=== PATIENT | male | born 1975 | race Caucasian/White ===

== ENCOUNTER 2023-10-15 23:10 | Observation (INO) | payer OTHER, SELFPAY ==
[2023-10-15 23:23] VITALS: BP 208/110; PULSE 88; RESP 16; TEMP 36.7; O2SAT 100
[2023-10-15 23:35] VITALS: PULSE 85; RESP 18
[2023-10-15 23:40] VITALS: PULSE 87; RESP 18; O2SAT 100
--- NOTE | 2023-10-15 23:41 | ECG_ITS ---
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
--- NOTE | 2023-10-15 23:41 | CT_ITS ---
The [address] [address] Patient Name: JOSÉ LUIS GORMAN MRN: [id number] date: 1975 Sex: M Assigned Patient Location: ER Current Patient Location: Accession/Order Number: [id number] Exam Date: 10/15/2023 23:52 Report Date: 10/16/2023 00:22 At the request of: KINZA HARRELL Procedure: CT stroke head/brain wo con EXAMINATION: CT Head without Contrast TECHNIQUE: Multiple axial noncontrast images of the brain were obtained and reformatted according to the standard protocol. QPP DOCUMENTATION: At least one of the following dose reduction techniques was utilized: Iterative reconstruction, and/or Automatic Exposure Control, and/or mA/kV adjustment based on body size. INDICATION: altered mental status, no focal deficit COMPARISON: MRI brain, 09/22/[address] head, 09/21/2023 FINDINGS: Intracranial hemorrhage: No CT evidence of intraparenchymal, intraventricular, or extraaxial hemorrhage. Infarct/Vascular: No evidence of acute transcortical infarctions. Intracranial Mass: No evidence of intracranial mass. CSF Spaces: The ventricles, sulci, and cisterns are normal. Calvarium and Scalp: Unremarkable. Mastoid Air Cells: Clear. Paranasal Sinuses: Lobulated partially calcified soft tissue attenuating structure within the right sphenoid sinus is unchanged since prior examination and may be due to chronic sinusitis. Orbits: Orbits are unremarkable. CT/CT stroke head/brain wo con IMPRESSION: No CT evidence of acute intracranial abnormalities. If symptoms persist, further assessment with MRI should be considered. Electronically authenticated by: LOUISE MOBLEY Date: 10/16/2023 00:22
--- NOTE | 2023-10-15 23:41 | XR_ITS ---
The [address] [address] Patient Name: JOSÉ LUIS GORMAN MRN: [id number] date: 1975 Sex: M Assigned Patient Location: ER Current Patient Location: ER Accession/Order Number: [id number] Exam Date: 10/15/2023 23:52 Report Date: 10/16/2023 00:28 At the request of: KINZA HARRELL Procedure: XR chest 1V EXAMINATION: XR chest 1V HISTORY: altered mental status COMPARISON: XR chest 09/21/2023 FINDINGS: LUNGS: Underexpanded lungs with mild haziness within lung bases. VASCULATURE: No increased pulmonary vasculature. PLEURA: No pneumothorax, effusion, or pleural thickening. CARDIAC: No cardiomegaly or cardiac silhouette abnormality. MEDIASTINUM: No visible mass or adenopathy. BONES: No fracture or visible bone lesion. OTHER: Negative. XR/XR chest 1V IMPRESSION: 1. Low lung volume examination with trace amount of bibasilar atelectasis, or possibly infiltrates. Findings are new compared to prior study. Electronically authenticated by: MARIA C VARGAS Date: 10/16/2023 00:28
[2023-10-15 23:42] LABS: Glucometer 208 mg/dL (74-106)
[2023-10-15 23:44] VITALS: BP 218/112
[2023-10-15 23:46] LABS: Basophils Absolute Auto 0.1 10^3/uL (0.0-0.1); Basophils Percent Auto 0.4 % (0.2-2.0); Eosinophils Absolute Auto 0.1 10^3/uL (0.0-0.7); Eosinophils Percent Auto 0.7 % (0.9-7.0); Hematocrit 38.7 % (42.0-54.0); Hemoglobin 13.1 g/dL (14.0-18.0); Immature Granulocytes Abs Auto 0.02 10^3/uL (0.00-0.03); Immature Granulocytes Pct Auto 0.2 % (0.0-0.5); Lymphocytes Absolute Auto 1.3 10^3/uL (1.2-3.8); Lymphocytes Percent Auto 11.8 % (20.5-60.0); Mean Corpuscular HGB Conc 33.9 g/dL (29.9-35.2); Mean Corpuscular Hemoglobin 28.6 pg (25.9-34.0); Mean Corpuscular Volume 84.5 fL (80.0-94.0); Mean Platelet Volume 10.2 fL (9.5-13.5); Monocytes Absolute Auto 0.4 10^3/uL (0.3-0.8); Monocytes Percent Auto 3.8 % (1.7-12.0); Neutrophils Absolute Auto 9.3 10^3/uL (1.4-6.5); Neutrophils Percent Auto 83.1 % (43.0-75.0); Platelet Count 271 10^3/uL (150-450); Red Blood Count 4.58 10^6/uL (4.70-6.10); White Blood Count 11.2 10^3/uL (4.0-11.0)
[2023-10-15 23:49] VITALS: PULSE 82; RESP 16; O2SAT 97
[2023-10-16] VITALS (30 sets, daily range): BP systolic 141–221; BP diastolic 71–122; PULSE 85–99; RESP 12–18; TEMP 36.8; O2SAT 96–98; BMI 27.0
[2023-10-16 00:06] LABS: Alanine Aminotransferase 33 U/L (16-63); Anion Gap 13.5; Aspartate Amino Transferase 18 U/L (15-37); BUN Creatinine Ratio 22.3; Bilirubin Direct 0.1 mg/dL (0.0-0.2); Bilirubin Total 0.3 mg/dL (0.2-1.0); Calcium 9.4 mg/dL (8.5-10.1); Carbon Dioxide 23.4 mmol/L (21.0-32.0); Chloride 102 mmol/L (98-107); Estimated GFR (African America 49 (>=60); Estimated GFR (Non-African Ame 41 (>=60); Glucose 210 mg/dL (74-106); Potassium 3.9 mmol/L (3.5-5.1); Sodium 135 mmol/L (136-145); Troponin I High Sensitivity 6.6 pg/mL (4.0-76.1)
[2023-10-16 00:07] LABS: Albumin Globulin Ratio 0.7; Albumin Level 3.1 g/dL (3.4-5.0); Alkaline Phosphatase 111 U/L (46-116); Ethanol <3 mg/dL; Globulin 4.3 g/dL; Total Protein 7.4 g/dL (6.4-8.2)
[2023-10-16] MEDS: LABETALOL HCL 20 MG/4 ML SYRINGE 10 MG IVP ×2 (00:35→01:24)
[2023-10-16] MEDS: ONDANSETRON PF 4 MG/2 ML VIAL IV (01:00)
--- NOTE | 2023-10-16 01:15 | ED_ITS ---
HPI - Altered Mental Status General Chief Complaint: Altered Mental Status Stated Complaint: HEADACHE, NASEAU Time Seen by Provider: 10/15/23 23:30 Source: patient Mode of arrival: walk-in Limitations: no limitations History of Present Illness HPI narrative: 47-year-old male presents for not acting himself. It started about 3:00 this afternoon, and nine hours before coming into the emergency department. His famil y was with him since 1 PM. There was no injury. His blood sugar was not elevated. He doesn't complain of any pain except a mild headache. Been taking his medications. Symptom or circumstances happened about a month ago when he was seen at another hospital. At that time he had been intubated and after extubation left without completing his treatment, AMA. Family states that this episode is not as bad as that one and they're not really sure what caused it. I was able to obtain those medical records and he had a negative MRI and the rest of his imaging workup was negative. No localized weakness or trauma. Related Data Home Medications Medication Instructions Recorded Confirmed blood-glucose meter,continuous 10/15/23 10/15/23 (Dexcom G6 Concert Or Lecture Hall Manager) blood-glucose sensor (Dexcom G6 10/15/23 10/15/23 Sensor device) blood-glucose transmitter (Dexcom 10/15/23 10/15/23 G6 Transmitter device) insulin glargine U-300 conc 300 unit subcut 10/15/23 unit/mL (3 mL) subcutaneous pen (Toujeo Max U-300 SoloStar) lisinopril 10 mg tablet mg 10/15/23 lisinopril 20 mg tablet mg 10/15/23 metoprolol tartrate 50 mg tablet mg 10/15/23 pen needle, diabetic 31 gauge x 10/15/23 10/15/23 5/16 (Easy Comfort Pen Talala) simvastatin 20 mg tablet 20 mg PO DAILY 10/15/23 10/15/23 tizanidine 4 mg tablet mg 10/15/23 Allergies Allergy/AdvReac Type Severity Reaction Status Date / Time No Known Drug Allergies Allergy Verified 10/15/23 23:39 Review of Systems ROS Narrative A ten point review of systems is negative except as noted above. PFSH PFSH Social History Smoking status: Never smoker Exam Narrative Exam Narrative: Nurses note and vital signs reviewed and patient is not hypoxic. General: The patient appears well and in no apparent distress. Patient is resting comfortably on cart. Skin: Warm, dry, no pallor noted. There is no rash noted. Head: Normocephalic, atraumatic, no nuchal rigidity Eye: Normal conjunctiva, no drainage Ears, Nose, Mouth, and Throat: oral mucosa is moist. Nares patent. Cardiovascular: Regular Rate and Rhythm Respiratory: Patient is in no distress, no accessory muscle use, lungs are clear to auscultation, no wheezing, rales or rhonchi Back: non-tender GI: soft and nontender Musculoskeletal: The patient has no evidence of calf tenderness, no pitting edema, symmetrical pulses noted bilaterally Neurological: A&O x4, normal speech; upper and lower extremity strength intact Psychiatric: Cooperative Constitutional Vital Signs, click to edit/add: Last Vital Signs Temp 98.0 F 10/15/23 23:23 Pulse 82 10/15/23 23:49 Resp 16 10/15/23 23:49 BP 166/93 H 10/16/23 03:10 Pulse Ox 97 10/15/23 23:49 O2 Del Method Room Air 10/15/23 23:23 Course Vital Signs Vital signs: Vital Signs Temperature 98.0 F 10/15/23 23:23 Pulse Rate 88 10/15/23 23:23 Respiratory Rate 16 10/15/23 23:23 Blood Pressure 208/110 H 10/15/23 23:23 Pulse Oximetry 100 10/15/23 23:23 Oxygen Delivery Method Room Air 10/15/23 23:23 Temperature 98.0 F 10/15/23 23:23 Pulse Rate 82 10/15/23 23:49 Respiratory Rate 16 10/15/23 23:49 Blood Pressure 166/93 H 10/16/23 03:10 Pulse Oximetry 97 10/15/23 23:49 Oxygen Delivery Method Room Air 10/15/23 23:23 MDM - Altered Mental Status MDM Narrative Medical decision making narrative: the patient presented with elevated blood pressure was given several doses of IV labetalol. His blood pressure has come down appropriately and he is now back to himself according to the family. CAT scan of brain is negative and blood work nonspecific. He is being admitted. Differential Diagnosis Differential diagnosis: Likely altered mental status, hypoglycemia, hyponatremia, subarachnoid hemorrhage and OTHER (uncontrolled hypertension) Lab Data Attestation: I reviewed the patient's lab results. Labs: Lab Results 10/15/23 10/15/23 Range/Units 23:32 23:40 WBC 11.2 H (4.0-11.0) 10^3/uL RBC 4.58 L (4.70-6.10) 10^6/uL Hgb 13.1 L (14.0-18.0) g/dL Hct 38.7 L (42.0-54.0) % MCV 84.5 (80.0-94.0) fL MCH 28.6 (25.9-34.0) pg MCHC 33.9 (29.9-35.2) g/dL RDW 13.0 (11.0-15.0) % Plt Count 271 (150-450) 10^3/uL MPV 10.2 (9.5-13.5) fL Neut % (Auto) 83.1 H (43.0-75.0) % Lymph % (Auto) 11.8 L (20.5-60.0) % [place] % (Auto) 3.8 (1.7-12.0) % Eos % (Auto) 0.7 L (0.9-7.0) % Baso % (Auto) 0.4 (0.2-2.0) % Neut # (Auto) 9.3 H (1.4-6.5) 10^3/uL Lymph # (Auto) 1.3 (1.2-3.8) 10^3/uL [place] # (Auto) 0.4 (0.3-0.8) 10^3/uL Eos # (Auto) 0.1 (0.0-0.7) 10^3/uL Baso # (Auto) 0.1 (0.0-0.1) 10^3/uL Abs Immat Gran (auto) 0.02 (0.00-0.03) 10^3/uL Imm/Tot Granulo (auto) 0.2 (0.0-0.5) % Sodium 135 L (136-145) mmol/L Potassium 3.9 (3.5-5.1) mmol/L Chloride 102 (98-107) mmol/L Carbon Dioxide 23.4 (21.0-32.0) mmol/L Anion Gap 13.5 BUN 40.0 H (7.0-18.0) mg/dL Creatinine 1.79 H (0.70-1.30) mg/dL Est GFR ( Amer) 49 L (>=60) Est GFR (Non-Af Amer) 41 L (>=60) BUN/Creatinine Ratio 22.3 Glucose 210 H (74-106) mg/dL Calcium 9.4 (8.5-10.1) mg/dL Total Bilirubin 0.3 (0.2-1.0) mg/dL Direct Bilirubin 0.1 (0.0-0.2) mg/dL AST 18 (15-37) U/L ALT 33 (16-63) U/L Alkaline Phosphatase 111 (46-116) U/L Troponin I High Sens 6.6 (4.0-76.1) pg/mL Total Protein 7.4 (6.4-8.2) g/dL Albumin 3.1 L (3.4-5.0) g/dL Globulin 4.3 g/dL Albumin/Globulin Ratio 0.7 Ethanol Quant <3 mg/dL POC Glucose 208 H (74-106) mg/dL Imaging Data CT scan - head: Radiologist's impression: Procedure: CT stroke head/brain wo con EXAMINATION: CT Head without Contrast TECHNIQUE: Multiple axial noncontrast images of the brain were obtained and reformatted according to the standard protocol. Q DOCUMENTATION: At least one of the following dose reduction techniques was utilized: Iterative reconstruction, and/or Automatic Exposure Control, and/or mA/kV adjustment based on body size. INDICATION: altered mental status, no focal deficit COMPARISON: MRI brain, 09/22/[address] head, 09/21/2023 FINDINGS: Intracranial hemorrhage: No CT evidence of intraparenchymal, intraventricular, or extraaxial hemorrhage. Infarct/Vascular: No evidence of acute transcortical infarctions. Intracranial Mass: No evidence of intracranial mass. CSF Spaces: The ventricles, sulci, and cisterns are normal. Calvarium and Scalp: Unremarkable. Mastoid Air Cells: Clear. Paranasal Sinuses: Lobulated partially calcified soft tissue attenuating structure within the right sphenoid sinus is unchanged since prior examination and may be due to chronic sinusitis. Orbits: Orbits are unremarkable. IMPRESSION: No CT evidence of acute intracranial abnormalities. If symptoms persist, further assessment with MRI should be considered. Electronically authenticated by: LOUISE MOBLEY Date: 10/16/2023 00:22 Procedure: XR chest 1V EXAMINATION: XR chest 1V HISTORY: altered mental status COMPARISON: XR chest 09/21/2023 FINDINGS: LUNGS: Underexpanded lungs with mild haziness within lung bases. VASCULATURE: No increased pulmonary vasculature. PLEURA: No pneumothorax, effusion, or pleural thickening. CARDIAC: No cardiomegaly or cardiac silhouette abnormality. MEDIASTINUM: No visible mass or adenopathy. BONES: No fracture or visible bone lesion. OTHER: Negative. IMPRESSION: 1. Low lung volume examination with trace amount of bibasilar atelectasis, or possibly infiltrates. Findings are new compared to prior study. Electronically authenticated by: MARIA C VARGAS Date: 10/16/2023 00:28 ECG Data Attestation: I personally reviewed and interpreted this ECG as follows: (EKG on my interpretation shows sinus rhythm and no acute changes and a rate of 84.) Critical Care Time Critical Care Time Critical Care Time: Yes Total Critical Care Time: 45 Attestation: Due to the high probability of sudden and clinically significant deterioration in the patient's condition he/she required the highest level of my preparedness to intervene urgently I provided critical care time including documentation time, medication orders and management, reevaluation, vital sign assessment, ordering and reviewing of lab tests, ordering and reviewing of x-ray studies, and admission orders. Aggregate critical care time is 45 minutes including only time during which I was engaged in work directly related to his/her care and did not include time spent treating other patients simultaneously. Discharge Plan Discharge Chief Complaint: Altered Mental Status Clinical Impression: Uncontrolled hypertension Patient Disposition: Admitted As Inpatient Time of Disposition Decision: 03:22 Prescriptions / Home Meds: No Action tizanidine 4 mg tablet lisinopril 20 mg tablet lisinopril 10 mg tablet metoprolol tartrate 50 mg tablet (DME) pen needle, diabetic [Easy Comfort Pen Talala] 31 gauge x 5/16 needle MISCELLANEOUS (DME) Dexcom G6 Sensor Device MISCELLANEOUS (DME) Dexcom G6 Concert Or Lecture Hall Manager Misc MISCELLANEOUS (DME) Dexcom G6 Transmitter Device MISCELLANEOUS Toujeo Max U-300 SoloStar 300 unit/mL (3 mL) insulin pen SUBCUT simvastatin 20 mg tablet 20 mg PO DAILY Referrals: Akhil Navas DPM [Primary Care Provider] - 1 week
[2023-10-16] MEDS: LABETALOL HCL 20 MG/4 ML SYRINGE IVP (02:13)
--- NOTE | 2023-10-16 05:21 | P.PN_ITS ---
Progress Note: Subjective Subjective Interval history: CC: confusion HPI: This is a 47 years old male with past medical history significant for hypertension, diabetes who presents with above complaints. Patient is noncompliant with his medical regimen. On presentation to emergency room patient found to have significant elevated blood pressure. No acute neurological deficits. Imaging studies of the brain been negative. Patient received IV labetalol with a good response. Blood pressure is much better and patient's neurological status and mentation markedly improved. Patient reports that he is taking his medication on a as needed basis. From medical record he is supposed to be on metoprolol and lisinopril. Exam Narrative Exam Narrative: Physical Exam: Not in distress, pleasant, lucid, cooperative, Head - atraumatic, eyes - pupils equal, round, reactive to light, extra ocular movement intact, MMM Neck - supple, thyroid not enlarged, LN not palpated Lungs - clear to auscultation, no dullness on percussion CVS - heart sounds S1, S2, no additional murmurs gallop, regular rate and rhythm Gastrointestinal?abdomen is soft, non-tender, non-distended, no organomegaly, positive bowel sounds Extremities no clubbing, cyanosis or edema Neurological?cranial nerve II?XII grossly intact, no meningeal signs, no cerebellar signs, no sensory deficit Musculoskeletal - joints, no effusions, ROM preserved Dermatological - the skin dry, warm, no rashes Psychiatric?patient is AAO X3, patient has normal affect Constitutional Vital Signs, click to edit/add: Last Vital Signs Temp 98.3 F 10/16/23 03:51 Pulse 91 H 10/16/23 04:57 Resp 18 10/16/23 03:51 BP 163/96 H 10/16/23 03:51 Pulse Ox 96 10/16/23 04:57 O2 Del Method Room Air 10/16/23 03:51 Progress Note: Objective Labs Labs: Short CBC 10/15/23 Range/Units 23:40 WBC 11.2 H (4.0-11.0) 10^3/uL Hgb 13.1 L (14.0-18.0) g/dL Hct 38.7 L (42.0-54.0) % Plt Count 271 (150-450) 10^3/uL BMP 10/15/23 23:40 Sodium 135 L Potassium 3.9 Chloride 102 Carbon Dioxide 23.4 BUN 40.0 H Creatinine 1.79 H Glucose 210 H Calcium 9.4 Liver Function 10/15/23 Range/Units 23:40 Total Bilirubin 0.3 (0.2-1.0) mg/dL Direct Bilirubin 0.1 (0.0-0.2) mg/dL AST 18 (15-37) U/L ALT 33 (16-63) U/L Alkaline Phosphatase 111 (46-116) U/L Albumin 3.1 L (3.4-5.0) g/dL Progress Note: A&P Assessment and Plan (1) Uncontrolled hypertension: Assessment and Plan: Hypertensive urgency?seems to be resolving with labetalol IV. I restarted patient's home medications. Advised patient to take his antihypertensive regimen on daily basis. I ordered echocardiogram. Adjust medications as needed (2) Diabetes: Assessment and Plan: I am going to start patient on ADA diet, I am going to order Accu-Cheks, coverage with insulin sliding scale. Defer rest of the management to outpatient. Check hemoglobin A1c lipid profile Plan As the provider for the telehealth service, I attest that I introduced myself to the patient, provided my credentials, disclosed by location and determined that based on a review of the patient's chart and discussion with members of the patient's treatment team, telemedicine via real-time, 2 way, and interactive audio and video platform is an appropriate and effective means of providing the service. ?The patient and I mutually agree this visit is appropriate for telemedicine. ?The virtual encounter was taken place from? [place], [place]. ?The encounter took approximately 35 minutes. ?The nurse was present during the entire time and I was able to move the stethoscope in appropriate directions. ?T he patient was evaluated at the Hospital ? Portions of this note may be dictated using [employer] voice recognition software. Variances in spelling and vocabulary are possible and unintentional. Not all e rrors may be caught and/or corrected. Please notify the author if any discrepancies are noted and/or if the meaning of any statement is unclear.? ? Patient verbally consented for treatment via video visit with patient currently located at the [facility] and provider located in [place]. Telemedicine Attestation Telemedicine Attestation I conducted this encounter from [[place]] via secure live, [id number] video conference with the patient, located at [facility] with [hypertensive urgency]. Prior to the interview, the risks and benefits of telemedicine were discussed with the patient and verbal consent was obtained.
[2023-10-16 06:19] LABS: Basophils Percent Auto 0.3 % (0.2-2.0); Eosinophils Percent Auto 0.1 % (0.9-7.0); Hematocrit 36.4 % (42.0-54.0); Hemoglobin 12.3 g/dL (14.0-18.0); Immature Granulocytes Abs Auto 0.04 10^3/uL (0.00-0.03); Immature Granulocytes Pct Auto 0.3 % (0.0-0.5); Lymphocytes Absolute Auto 1.1 10^3/uL (1.2-3.8); Lymphocytes Percent Auto 8.4 % (20.5-60.0); Mean Corpuscular HGB Conc 33.8 g/dL (29.9-35.2); Mean Corpuscular Hemoglobin 28.4 pg (25.9-34.0); Mean Corpuscular Volume 84.1 fL (80.0-94.0); Mean Platelet Volume 10.7 fL (9.5-13.5); Monocytes Absolute Auto 0.3 10^3/uL (0.3-0.8); Monocytes Percent Auto 2.6 % (1.7-12.0); Neutrophils Absolute Auto 11.1 10^3/uL (1.4-6.5); Neutrophils Percent Auto 88.3 % (43.0-75.0); Platelet Count 252 10^3/uL (150-450); Red Blood Count 4.33 10^6/uL (4.70-6.10); Red Cell Distribution Width 12.9 % (11.0-15.0); White Blood Count 12.6 10^3/uL (4.0-11.0)
[2023-10-16 06:47] LABS: Anion Gap 12.6; BUN Creatinine Ratio 23.8; Calcium 8.9 mg/dL (8.5-10.1); Carbon Dioxide 24.5 mmol/L (21.0-32.0); Chloride 102 mmol/L (98-107); Estimated GFR (African America 53 (>=60); Estimated GFR (Non-African Ame 44 (>=60); Glucose 292 mg/dL (74-106); Potassium 5.1 mmol/L (3.5-5.1); Sodium 134 mmol/L (136-145)
[2023-10-16 06:54] LABS: Chol HDL Ratio 4.2; Cholesterol 253 mg/dL (<=200); HDL Cholesterol 60 mg/dL (40-60); Magnesium 1.8 mg/dL (1.8-2.4); Phosphorus 3.7 mg/dL (2.6-4.7); Triglycerides 82 mg/dL (<=150); VLDL CHOLESTEROL 16.4 mg/dL
[2023-10-16] MEDS: INSULIN ASPART 300 UNIT/3 ML PEN SUBQ ×2 (08:18→11:21)
[2023-10-16] MEDS: LISINOPRIL 20 MG TABLET PO (08:18)
[2023-10-16] MEDS: METOPROLOL TARTRATE 50 MG TABLET PO ×2 (08:18→11:40)
[2023-10-16 11:12] LABS: Glucometer 286 mg/dL (74-106)
--- NOTE | 2023-10-16 11:23 | P.HP_ITS ---
H&P: HPI History of Present Illness Chief complaint: HEADACHE, NASEAU Narrative: Pt presented to the ER wtih ams, and hypertension. He is back to baseline now. Says he felt BP was low at home so drank a bunch of salted water. Then had the symptoms. Recent DC from [facility] for similar that he needed to be intubated for. Back to baseline now. Will see how the day progresses Review of Systems ROS Status of ROS 10 or more systems reviewed and unremark able except as noted in history and below [facility] Medical History (Updated 10/16/23 @ 08:57 by Arnel Palacios MD) Dyslipidemia ?E78.5 - Hyperlipidemia, unspecified (ICD-10) Benign essential hypertension ?I10 - Essential (primary) hypertension (ICD-10) Uncontrolled hypertension ?I10 - Essential (primary) hypertension (ICD-10) Infection of muscle of back ?M60.08 - Infective myositis, other site (ICD-10) Diabetes ?E11.9 - Type 2 diabetes mellitus without complications (ICD-10) Social History (Updated 10/16/23 @ 04:17 by Karen Zaldivar) Within the past year, how often did you have a drink containing alcohol: monthly or less Within the past year, how many standard drinks containing alcohol did you have on a typical day: 1 or 2 Within the past year, how often did you have six or more drinks on one occasion: never Total score: 0 Score interpretation: A score less than 4 is consistent with normal alcohol consumption. Smoking status: Never smoker Do you use any of these nicotine containing products: smokeless tobacco Non-prescribed substance use: denies use Previous occupational history: [employer] Highest level of school completed/degree received: high school graduate Little interest or pleasure in doing things: not at all Feeling down, depressed, or hopeless: not at all Feel stressed/tense/nervous/anxious/difficulty sleeping: only a little Due to disability, difficulty making decisions: No Meds Home Medications and Allergies Home Medications Medication Instructions Recorded Confirmed Type blood-glucose meter,continuous 10/15/23 10/16/23 History (Dexcom G6 Medical Territory Manager) blood-glucose sensor (Dexcom G6 10/15/23 10/15/23 History Sensor device) blood-glucose transmitter (Dexcom 10/15/23 10/15/23 History G6 Transmitter device) insulin glargine U-300 conc 300 unit subcut 10/15/23 History unit/mL (3 mL) subcutaneous pen (Toujeo Max U-300 SoloStar) lisinopril 20 mg tablet 20 mg PO DAILY 10/15/23 10/16/23 History metoprolol tartrate 50 mg tablet 50 mg PO Q12H 10/15/23 10/16/23 History pen needle, diabetic 31 gauge x 10/15/23 10/15/23 History 5/16 (Easy Comfort Pen Ethel) levofloxacin 750 mg tablet 750 mg PO DAILY 10 days #10 tabs 10/16/23 Rx Allergies Allergy/AdvReac Type Severity Reaction Status Date / Time No Known Drug Allergies Allergy Verified 10/15/23 23:39 Exam Constitutional Vital Signs, click to edit/add: Last Vital Signs Temp 98.3 F 10/16/23 03:51 Pulse 91 H 10/16/23 10:00 Resp 16 10/16/23 08:00 BP 141/71 10/16/23 08:18 Pulse Ox 96 10/16/23 04:57 O2 Del Method Room Air 10/16/23 03:51 Documenting provider has reviewed patient's vital signs: yes Common normals: no apparent distress Chest Common normals: inspection of chest normal and palpation of chest normal Respiratory Common normals: normal respiratory effort, no retractions and no use of accessory muscles Cardio Common normals: regular rate and regular rhythm GI Common normals: Normal to inspection, nondistended, normoactive bowel sounds present Results Labs Labs: Short CBC 10/15/23 10/16/23 Range/Units 23:40 06:12 WBC 11.2 H 12.6 H (4.0-11.0) 10^3/uL Hgb 13.1 L 12.3 L (14.0-18.0) g/dL Hct 38.7 L 36.4 L (42.0-54.0) % Plt Count 271 252 (150-450) 10^3/uL BMP 10/15/23 10/16/23 23:40 06:12 Sodium 135 L 134 L Potassium 3.9 5.1 Chloride 102 102 Carbon Dioxide 23.4 24.5 BUN 40.0 H 40.0 H Creatinine 1.79 H 1.68 H Glucose 210 H 292 H Calcium 9.4 8.9 Liver Function 10/15/23 Range/Units 23:40 Total Bilirubin 0.3 (0.2-1.0) mg/dL Direct Bilirubin 0.1 (0.0-0.2) mg/dL AST 18 (15-37) U/L ALT 33 (16-63) U/L Alkaline Phosphatase 111 (46-116) U/L Albumin 3.1 L (3.4-5.0) g/dL Assessment and Plan Assessment and Plan (1) Uncontrolled hypertension: (2) Diabetes: Plan AMS due to hypertensive urgency - Back to baseline now. Looks like not taking meds correctly. reviewed meds with pt, he feels comfortable going home. The plan is to adjust bp meds, ambulate, eat. If doing well after lunch - ok for D/C to home. See me later this week. Medications,. see list Uncontrolled DM - discussed diet which he is not following. Cough - says since was on the vent - occ productive >10 days - will send in Ab Doing much better - maintain current treatment, stay in obs as 90% certain discharge later today
--- OUTSIDE RECORDS SUMMARY | 2023-10-18 08:45 | XMS_ITS | CCD ---
Author Name Unknown Address [address] [place] [address] Organization [facility] Care Team Providers Care Manager Utilization Name Role Phone Paulina Winters MD Primary Care Provider [phone] PAULINA WINTERS Primary Care Unavailable SOHAIL GREER Consulting Unavailable STEPHANIE KWONG Admitting Unavailable STEPHANIE KWONG Attending Unavailable JEMAL MONTES DE OCA Consulting Unavailable CHENG LIRA Attending Unavailable PAULINA WINTERS Primary Care Unavailable PAULINA WINTERS Primary Care Unavailable LULÚ BOND Attending Unavailable HOY ., DR GALLARDO Attending Unavailable HOY ., DR GALLARDO Admitting Unavailable HOY ., DR GALLARDO Primary Care Unavailable HOY ., DR GALLARDO Primary Care Unavailable HIGHLANDER, PETER D Admitting Unavailable HIGHLANDER, PETER D Attending Unavailable HIGHLANDER, PETER D Admitting Unavailable HOY ., DR GALLARDO Primary Care Unavailable HIGHLANDER, PETER D Attending Unavailable HIGHLANDER, PETER D Admitting Unavailable HOY ., DR GALLARDO Primary Care Unavailable HIGHLANDER, PETER D Attending Unavailable HOY ., DR GALLARDO Primary Care Unavailable HIGHLANDER, PETER D Attending Unavailable HIGHLANDER, PETER D Admitting Unavailable HOY ., DR GALLARDO Primary Care Unavailable HIGHLANDER, PETER D Admitting Unavailable HIGHLANDER, PETER D Attending Unavailable HOY ., DR GALLADRO Primary Care Unavailable HIGHLANDER, PETER D Admitting Unavailable HIGHLANDER, PETER D Attending Unavailable HOY ., DR GALLARDO Attending Unavailable HOY ., DR GALLARDO Primary Care Unavailable HOY ., DR GALLARDO Consulting Unavailable HOY ., DR GALLARDO Admitting Unavailable GRECHNY ., DOMENICA HERNÁNDEZ Consulting UnavailAnni Avery Consulting Unavailable MELISSA ., EVI Consulting Unavailable JACOB VARGAS Consulting Unavailable KATELIN IGNACIO Consulting Unavailable SINGH ., DR GALLARDO Primary Care Unavailable PAY ., DR MANRIQUEZ Consulting Unavailable PAY ., DR MANRIQUEZ Attending Unavailable PAY ., DR MANRIQUEZ Admitting Unavailable HOY ., DR GALLARDO Consulting Unavailable HOY ., DR GALLARDO Attending Unavailable HOY ., DR GALLARDO Admitting Unavailable HOY ., DR GALLARDO Primary Care Unavailable WALDORF, DR RAMIRO Cramer Consulting Unavailable HOY ., DR GALLARDO Attending Unavailable HOY ., DR GALLARDO Primary Care Unavailable HOY ., DR GALLARDO Consulting Unavailable HOY ., DR GALLARDO Admitting Unavailable HOY ., DR GALLARDO Attending Unavailable HOY ., DR GALLARDO Primary Care Unavailable HOY ., DR GALLARDO Admitting Unavailable HOY ., DR GALLARDO Consulting Unavailable JACQUELINE PACHECO Procedure Practitioner Unava ilable SHAIKH Kelvin DOMÍNGUEZ Attending Unavailable SINGH ., DR GALLARDO Primary Care Unavailable FAMICHAEL SANTANAIKH H Admitting Unavailable RADHA, DR FITZGERALD Consulting Unavailable TARA, JACQUELINE Orantes Consulting Unavailable MICHAEL DOMÍNGUEZIKH H Consulting Unavailable DIANE, DAMIAN Consulting Unavailable JAILENE ., EVELINE FITZGERALD Consulting Unavailable SISTER, JUSTIN Consulting Unavailable GEMBUS, OLE Consulting Unavailable HOY ., DR GALLARDO Attending Unavailable HOY ., DR GALLARDO Primary Care Unavailable HOY ., DR GALLARDO Admitting Unavailable Jarod Simons Attending UnavailPaulina Hemphill MD Primary Care UnavailJarod Guo Attending UnavailPaulina Hemphill MD Primary Care UnavailJarod Guo Attending Paulina Guzmán MD Primary Care UnavailPaulina Erickson MD Primary Care Provider [phone] KARL CANDELARIO Admitting Unavailabl e MORIKARL PAL Attending Unavailabl e CONSULT, NEUROLOGY Consulting Unavailable PAULINA WINTERS Primary Care Unavailable PAULINA WINTERS Referring Unavailable PAULINA WINTERS Primary Care Unavailable Allergies Allergy Classification Reported Allergen(s) Allergy Type Date of Onset Reaction(s) Facility (1 source) No Known Medication Allergies; Translations: [No Known Medication Allergies] Propensity to adverse reactions to drug (disorder) [facility] Repository Medications Current Medications Medication Drug Class(es) Dates Sig (Normalized) Sig (Original) hydroCHLOROthiazide 25 mg oral tablet (2 sources) Thiazide Diuretic Start: 2 End: 2 take 1 tablet by mouth once daily in the morning hydroCHLOROthiazide (HYDRODIURIL) 25 MG tablet Take 1 tablet by mouth every morning for 14 days 14 tablet 0 04/20/2022 05/04/2022 Active 3 ml insulin aspart, human 100 unt/ml pen injector (1 source) Insulin Analog inject 1 [IU] by subcutaneous injection at bedtime NovoLOG FlexPen 100 UNIT/ML Solution Pen-injector injection Inject 1 Units under the skin before meals & at bedtime. 0 Active 3 ml insulin detemir 100 unt/ml pen injector (2 sources) Insulin Analog Start: 2 insulin detemir (LEVEMIR FLEXTOUCH) 100 UNIT/ML injection pen Inject 50 Units into the skin daily 5 pen 3 11/02/2021 Active insulin glargine 100 unt/ml injectable solution (1 source) Insulin Analog inject 1 [IU] by subcutaneous injection at bedtime Insulin glargine (Lantus) 100 UNIT/ML vial Inject 1 Units under the skin at bedtime. 0 Active 3 ml insulin lispro 100 unt/ml pen injector (2 sources) Insulin Analog Start: 2 insulin lispro, 1 Unit Dial, (HUMALOG KWIKPEN) 100 UNIT/ML SOPN Inject 10 Units into the skin 3 times daily (before meals) If blood sugar is greater than 200 take 15 units 3 pen 3 11/02/2021 Active lisinopril 10 mg oral tablet (2 sources) Angiotensin Converting Enzyme Inhibitor Start: 3 take 1 tablet by mouth every twelve hours Lisinopril 10 MG tablet Take 1 tablet by mouth every 12 hours. 30 tablet 1 09/24/2023 Active Start: 09-23-2023 End: 09-24-2023 Lisinopril (PRINIVIL) tablet 10 mg sildenafil (1 source) Phosphodiesterase 5 Inhibitor Sildenafil Citrate (VIAGRA PO) Take 1 % by mouth As directed as needed for Other. 0 Active simvastatin 20 mg oral tablet (1 source) HMG-CoA Reductase Inhibitor take 1 tablet by mouth once daily in the evening simvastatin 20 MG tablet Take 1 tablet by mouth every evening at 6 PM. 0 Active tiZANidine 2 mg oral tablet (1 source) Central alpha-2 Adrenergic Agonist take 2 tablets by mouth three times daily Tizanidine 2 MG tablet Take 2 tablets by mouth 3 times daily. 0 Active Completed/Discontinued Medications Medication Drug Class(es) Dates Sig (Normalized) Sig (Original) acetaminophen 325 mg oral tablet (4 sources) Start: 09-23-2023 End: 09-24-2023 take 1 tablet by mouth every four hours as needed Acetaminophen (TYLENOL) tablet 650 mg Start: 04-19-2022 End: 04-19-2022 acetaminophen (TYLENOL) tabl et 650 mg Start: 04-04-2022 End: 04-04-2022 acetaminophen (TYLENOL) tabl et 1,000 mg take 1 tablet by divine th every six hours as needed acetaminophen 500 MG tablet Take 1 tablet by mouth every 6 hours as needed for Mild Pain. 0 Active Acyclovir (ZOVIRAX) 800 mg in Sodium chloride 0.9%, with overfill 291 mL (total volume) IVPB (1 source) Start: 09-22-2023 End: 09-23-2023 Acyclovir (ZOVIRAX) 800 mg in Sodium chloride 0.9%, with overfill 291 mL (total volume) IVPB 20 ml albumin human, fdc 250 mg/ml injection (1 source) Human Serum Albumin Start: 09-22-2023 End: 09-22-2023 albumin human 25 % injection 25 g albuterol 0.833 mg/ml / ipratropium bromide 0.167 mg/ml inhalation solution (1 source) Anticholinergic , beta2-Adrenergi c Agonist Start: 09-23-2023 End: 09-24-2023 take 3 mL by inhalation every four hours as needed Ipratropium-albuter ol (DUONEB) 0.5-2.5 (3) MG/3ML nebulizer solution 3 mL atorvastatin 10 mg oral tablet (1 source) HMG-CoA Reductase Inhibitor Start: 09-22-2023 End: 09-24-2023 take 10 mg by mouth once daily at bedtime 10 mg, Oral, DAILY AT BEDTIME, First dose on Roz 09/22/23 at 2100, Until Discontinued cefTRIAXone (ROCEPHIN) 1 g in sodium chloride 0.9% (MB PLUS) 50 mL (total volume) IVPB (1 source) Start: 09-22-2023 End: 09-23-2023 take 1 g intravenously every twenty-four hours cefTRIAXone (ROCEPHIN) 1 g in sodium chloride 0.9% (MB PLUS) 50 mL (total volume) IVPB 100 ml dexmedetomidine 0.004 mg/ml injection (2 sources) Central alpha-2 Adrenergic Agonist Start: 09-22-2023 End: 09-23-2023 dexmedeTOMIDine in sodium chloride 0.9% (PRECEDEX) 400 mcg/100 mL premix IV infusion Start: 09-22-2023 End: 09-22-2023 dexmedeTOMIDine in sodium ch loride 0.9% (PRECEDEX) 400 mcg/100 mL premix IV infusion 1 ml diphenhydrAMINE hydrochloride 50 mg/ml cartridge (1 source) Histamine-1 Receptor Antagonist Start: 04-04-2022 End: 04-04-2022 diphenhydrAMINE (BENADRYL) injection 25 mg 0.4 ml enoxaparin sodium 100 mg/ml prefilled syringe (1 source) Low Molecular Weight Heparin Start: 09-22-2023 End: 09-24-2023 Enoxaparin Sodium (LOVENOX) injection 40 mg 20 ml etomidate 2 mg/ml injection (1 source) General Anesthetic Start: 09-21-2023 End: 09-21-2023 Etomidate (AMIDATE) injection 250 ml glucose 50 mg/ml / sodium chloride 9 mg/ml injection (1 source) Start: 09-22-2023 End: 09-24-2023 Dextrose 5% and sodium chloride 0.9% IV solution 1 ml haloperidol 5 mg/ml prefilled syringe (1 source) Typical Antipsychotic Start: 09-22-2023 End: 09-22-2023 Haloperidol lactate (HALDOL) injection 5 mg 1 ml hydrALAZINE hydrochloride 20 mg/ml injection (1 source) Arteriolar Vasodilator Start: 09-23-2023 End: 09-24-2023 take 20 mg intravenously every four hours as needed hydrALAZINE (APRESOLINE) injection 20 mg Insulin regular (HUMULIN R;NOVOLIN R) injection (1 source) Start: 09-22-2023 End: 09-24-2023 Insulin regular (HUMULIN R;NOVOLIN R) injection labetalol hydrochloride 5 mg/ml injectable solution (1 source) beta-Adrenergic Arlene Start: 09-23-2023 End: 09-24-2023 take 20 mg intravenously every six hours as needed Labetalol (NORMODYNE) injection 20 mg levETIRAcetam 500 mg oral tablet (1 source) Start: 09-23-2023 End: 09-24-2023 levETIRAcetam (KEPPRA) tablet 500 mg 2 ml midazolam 1 mg/ml injection (2 sources) Benzodiazepine Start: 09-21-2023 End: 09-21-2023 Midazolam HCl (PF) (VERSED) injection Start: 09-21-2023 End: 09-21-2023 midazolam (VERSED) injection 4 mg 200 ml niCARdipine hydrochloride 0.1 mg/ml injection (1 source) Dihydropyridine Calcium Channel Arlene Start: 09-21-2023 End: 09-22-2023 niCARdipine in sodium chloride (CARDENE) 20 mg/200 mL premix IV infusion 2 ml ondansetron 2 mg/ml injection (2 sources) Serotonin-3 Receptor Antagonist Start: 09-23-2023 End: 09-24-2023 take 4 mg intravenously every four hours as needed Ondansetron 4mg/2ml (ZOFRAN) injection 4 mg Start: 04-04-2022 End: 04-04-2022 ondansetron (ZOFRAN) injecti on 4 mg pantoprazole 40 mg delayed release oral tablet (2 sources) Proton Pump Inhibitor Start: 09-23-2023 End: 09-24-2023 Pantoprazole (PROTONIX) tablet DR 40 mg Start: 09-23-2023 End: 09-23-2023 Pantoprazole (PROTONIX) inje ction 40 mg 2 ml prochlorperazine 5 mg/ml injection (1 source) Phenothiazine Start: 04-04-2022 End: 04-04-2022 prochlorperazine (COMPAZINE) injection 10 mg 100 ml propofol 10 mg/ml injection (1 source) General Anesthetic Start: 09-21-2023 End: 09-22-2023 Propofol (DIPRIVAN) 1000 MG/100ML premix infusion QUEtiapine 100 mg oral tablet (1 source) Atypical Antipsychotic Start: 09-23-2023 End: 09-24-2023 QUEtiapine (SEROquel) tablet 100 mg 1000 ml sodium chloride 9 mg/ml injection (4 sources) Start: 09-22-2023 End: 09-22-2023 Sodium chloride 0.9% IV solution 1,000 mL Start: 09-21-2023 End: 09-22-2023 Sodium chloride 0.9% IV solu tion Start: 04-04-2022 End: 04-04-2022 0.9 % sodium chloride bolus vecuronium bromide 1 mg/ml injectable solution (2 sources) Nondepolarizing Neuromuscular Arlene Start: 09-21-2023 End: 09-21-2023 Vecuronium (NORCURON) injection 8.5 mg Start: 09-21-2023 End: 09-21-2023 Vecuronium (NORCURON) inject ion Problems Active Problems Problem Classification Problem Date Documented Da te Episodic/Chronic Cardiac dysrhythmias (2 sources) Sinus tachycardia; Translations: [Tachycardia, unspecified] 10-30-2021 Episodic Chronic ulcer of skin (15 sources) Non-pressure chronic ulcer of left heel and midfoot limited to breakdown of skin; Translations: [Non-pressure chronic ulcer of other part of right lower leg limited to breakdown of skin] Onset: 11-12-2022 Chronic Diabetes mellitus with complications (15 sources) Type 2 diabetes mellitus; Translations: [Type 2 diabetes mellitus with ketoacidosis without coma] Onset: 10-27-2021 11-02-2021 Chronic Diabetes mellitus without complication (5 sources) Type 2 diabetes mellitus without complications; Translations: [TYPE 2 DM WITHOUT COMPLICATIONS] Onset: 03-18-2022 Chronic Disorders of lipid metabolism (2 sources) Pure hypercholesterolemia , unspecified; Translations: [Pure hyperglyceridemia] Onset: 01-03-2023 Chronic Essential hypertension (2 sources) Essential hypertension; Translations: [Essential (primary) hypertension] Onset: 01-03-2023 Chronic Headache; including migraine (2 sources) Acute headache; Translations: [Acute nonintractable headache, unspecified headache type] Episodic Hypertension with complications and secondary hypertension (3 sources) Hypertensive emergency; Translations: [Hypertensive emergency] Onset: 09-21-2023 09-21-2023 Chronic Nutritional deficiencies (2 sources) Undernutrition; Translations: [Mild protein-calorie malnutrition] Onset: 10-28-2021 10-28-2021 Chronic Other aftercare (1 source) 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; Translations: [TEST DRIVER CURRENT USE OF INSULIN] Onset: 12-30-2022 Episodic Other aftercare (1 source) Other buttermaker (current) drug therapy; Translations: [OTH MCC CURRENT DRUG THERAPY] Onset: 12-30-2022 Episodic Other circulatory disease (1 source) Elevated blood pressure; Translations: [Elevated blood-pressure reading, without diagnosis of hypertension] Episodic Other diseases of kidney and ureters (2 sources) Renal impairment; Translations: [Disorder of kidney and ureter, unspecified] Onset: 09-22-2023 09-22-2023 Episodic Other nervous system disorders (3 sources) Dysarthria and anarthria; Translations: [DYSARTHRIA AND ANARTHRIA] Onset: 12-27-2022 Episodic Paralysis (4 sources) 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; Translations: [MONOPLEG UP LIMB RT NONDOM SIDE] Onset: 04-28-2022 Chronic Peripheral and visceral atherosclerosis (1 source) Peripheral vascular disease, unspecified; Translations: [PERIPHERAL VASCULAR DISEASE UNS] Onset: 01-03-2023 Chronic Residual codes; unclassified (1 source) Altered mental status; Translations: [Altered mental status, unspecified] 09-21-2023 Episodic Residual codes; unclassified (2 sources) Delirium; Translations: [Disorientation, unspecified] Onset: 09-22-2023 09-22-2023 Episodic Residual codes; unclassified (2 sources) Altered mental status, unspecified; Translations: [Altered mental status, unspecified] Onset: 09-21-2023 Episodic Residual codes; unclassified (1 source) Pain, unspecified; Translations: [Pain, unspecified] Onset: 10-16-2023 Episodic Respiratory failure; insufficiency; arrest (adult) (2 sources) Acute respiratory failure; Translations: [Acute respiratory failure, unspecified whether with hypoxia or hypercapnia] Onset: 09-21-2023 09-21-2023 Episodic Skin and subcutaneous tissue infections (5 sources) Cellulitis, unspecified; Translations: [Cutaneous abscess of right lower limb] Onset: 10-13-2022 Episodic Substance-related disorders (2 sources) Nicotine dependence, chewing tobacco, uncomplicated; Translations: [Nicotine dependence, unspecified, uncomplicated] Onset: 10-25-2022 Chronic Substance-related disorders (2 sources) Substance abuse; Translations: [Other psychoactive substance use, unspecified, uncomplicated] Onset: 09-22-2023 09-22-2023 Episodic Transient cerebral ischemia (1 source) Transient cerebral ischemic attack, unspecified; Translations: [TRANS CERBRAL ISCHEMIC ATTACK UNS] Onset: 12-30-2022 Chronic Unclassified (3 sources) CONTACT W/AND (SUSP) EXPOS COVID-19; Translations: [CONTACT W/AND (SUSP) EXPOS COVID-19] Onset: 06-02-2022 Unclassified (1 source) COUGH, UNSPECIFIED; Translations: [COUGH, UNSPECIFIED] Onset: 06-02-2022 Viral infection (1 source) COVID-19; Translations: [COVID-19] Onset: 06-02-2022 Past or Other Problems Problem Classification Problem Date Documented Da te Episodic/Chronic Administrative/social admission (1 source) Dietary counseling and surveillance; Translations: [DIETARY COUNSELING AND SURVEILLANCE] Onset: 03-24-2022 Episodic Bacterial infection; unspecified site (3 sources) Bacteremia due to Staphylococcus aureus; Translations: [Bacteremia] Onset: 10-25-2022 11-02-2021 Episodic Open wounds of extremities (1 source) Unspecified open wound, right lower leg, initial encounter; Translations: [UNS OPEN WOUND RT LOWER LEG INITIAL] Onset: 10-15-2022 Episodic Other circulatory disease (4 sources) Hemorrhage, not elsewhere classified; Translations: [HEMORRHAGE NOT ELSEWHERE CLASSIFIED] Onset: 10-13-2022 Episodic Other circulatory disease (1 source) Other specified symptoms and signs involving the circulatory and respiratory systems; Translations: [OTH SPEC SX SIGNS INVLV CIRC RS] Onset: 06-02-2022 Episodic Other connective tissue disease (1 source) Infective myositis, unspecified right leg; Translations: [INFECTIVE MYOSITIS UNS RIGHT LEG] Onset: 10-25-2022 Episodic Other gastrointestinal disorders (4 sources) Diarrhea, unspecified; Translations: [DIARRHEA UNSPECIFIED] Onset: 09-24-2022 Episodic Other skin disorders (1 source) Other skin changes; Translations: [OTHER SKIN CHANGES] Onset: 10-25-2022 Episodic Residual codes; unclassified (1 source) Family history of diabetes mellitus; Translations: [FAMILY HISTORY OF DIABETES MELLITUS] Onset: 10-25-2022 Episodic Unclassified (1 source) CONTACT W/AND (SUSP) EXPOS COVID-19; Translations: [CONTACT W/AND (SUSP) EXPOS COVID-19] Onset: 06-01-2022 Results Test Name Value Interpretation Reference Range Facility HSV 1,2 DNA PCRon 09-26-2023 HSV 1 DNA Negative Normal [facility] Comment on above: Result Comment: Refe rence range: Negative Performed By: #### L HSV #### Testing performed at [facility] HSV 2 DNA Negative Normal [facility] Comment on above: Result Comment: Refe rence range: Negative (NOTE) This test was developed and its performance characteristics determined by [facility]. It has not been cleared or approved by the U.S. Food and Drug Administration. The FDA has determined that such clearance or approval is not necessary. This test is used for clinical purposes. It should not be regarded as investigational or research. PERFORMED AT [facility] Performed By: #### L HSV #### Testing performed at [facility] CBCon 09-24-2023 ABSOLUTE BAS 0.0 10*3/uL Normal 0.0-0.2 [facility] ABSOLUTE EOS 0.1 10*3/uL Normal 0.0-0.7 [facility] ABSOLUTE NEUTROPHIL COUNT 12.9 10*3/uL High 1.4-6.5 [facility] Basophils/100 WBC (Bld) 0.1 % Normal 0.0-2.0 [facility] DTYPE AUTO DIFF Normal [facility] Eosinophils/100 WBC (Bld) 0.5 % Normal 0.0-11.0 [facility] Lymphocytes (Bld) [#/Vol] 1.0 10*3/uL Low 1.2-3.4 [facility] Lymphocytes/100 WBC (Bld) 6.3 % Low 20.0-55.0 [facility] Monocytes (Bld) [#/Vol] 1.2 10*3/uL High 0.0-0.7 [facility] Monocytes/100 WBC (Bld) 7.9 % Normal 0.0-10.0 [facility] Neutrophils/100 WBC (Bld) 85.2 % High 37.0-75.0 [facility] Erythrocyte distribution width (RBC) [Ratio] 14.2 % Normal 11.5-14.5 [facility] Hematocrit (Bld) [Volume fraction] 34.1 % Low 42.0-52.0 [facility] Hemoglobin (Bld) [Mass/Vol] 11.4 g/dL Low 14.0-18. 0 [facility] MCH (RBC) [Entitic mass] 29.0 pg Normal 26.0-35.0 [facility] MCHC (RBC) [Mass/Vol] 33.4 g/dL Normal 27.0-37.0 [facility] MCV (RBC) [Entitic vol] 86.7 fL Normal 80.0-100.0 [facility] Platelet mean volume (Bld) [Entitic vol] 8.8 fL Normal 7.4-11.0 [facility] Platelets (Bld) [#/Vol] 161 10*3/uL Normal 130-400 [facility] RBC (Bld) [#/Vol] 3.94 10*6/uL Low 4.0-6.1 [facility] WBC (Bld) [#/Vol] 15.2 10*3/uL High 3.6-11.0 [facility] CBC, EDIF, PLATELETon 2022 ABSOLUTE BASOPHIL COUNT 0.0 10*3/uL 0.0 - 0.2 10*3/uL [facility] Basophils/100 WBC (Bld) 0.1 % 0.0 - 2.0 % [facility] Differential cell count method Nom (Bld) AUTO DIFF % [facility] Eosinophils (Bld) [#/Vol] 0.1 10*3/uL 0. 0 - 0.7 10*3/uL [facility] Eosinophils/100 WBC (Bld) 0.5 % 0. 0 - 11.0 % [facility] Erythrocyte distribution width (RBC) [Ratio] 14.2 % 11.5 - 14.5 % [facility] Hematocrit (Bld) [Volume fraction] 34.1 % Low 42.0 - 52.0 % [facility] Hemoglobin (Bld) [Mass/Vol] 11.4 g/dL Low [facility] Interpretation and review of laboratory results Abnormal [facility] Lymphocytes (Bld) [#/Vol] 1.0 10*3/uL Low 1. 2 - 3.4 10*3/uL [facility] Lymphocytes/100 WBC (Bld) 6.3 % Low 20 .0 - 55.0 % [facility] MCH (RBC) [Entitic mass] 29.0 pg 26. 0 - 35.0 PG [facility] MCHC (RBC) [Mass/Vol] 33.4 g/dL [facility] MCV (RBC) [Entitic vol] 86.7 fL [facility] Monocytes (Bld) [#/Vol] 1.2 10*3/uL High 0.0 - 0.7 10*3/uL [facility] Monocytes/100 WBC (Bld) 7.9 % 0.0 - 10.0 % [facility] Neutrophils (Bld) [#/Vol] 12.9 10*3/uL High 1. 4 - 6.5 10*3/uL [facility] Neutrophils/100 WBC (Bld) 85.2 % High 37 .0 - 75.0 % [facility] Platelet mean volume (Bld) [Entitic vol] 8.8 fL [facility] Platelets (Bld) [#/Vol] 161 10*3/uL 130 - 400 10*3/uL [facility] RBC (Bld) [#/Vol] 3.94 10*6/uL Low 4.0 - 6.1 10*6/uL [facility] WBC (Bld) [#/Vol] 15.2 10*3/uL High 3.6 - 11.0 10*3/uL [facility] CKon 09-24-2023 CK [Catalytic activity/Vol] 631 U/L High [facility] CPKon 09-24-2023 CPK 631 IU/L High 55-170 [facility] GLUCOSE (POC DEVICE)on 09-24 GLUCOSE, POINT OF CARE 203 High [facility] Interpretation and review of laboratory results Abnormal [facility] Operator [id number] [facility] GLUCOSE, POINT OF CARE 183 High [facility] Interpretation and review of laboratory results Abnormal [facility] Operator [id number] [facility] GLUCOSE, POINT OF CARE 109 High [facility] Interpretation and review of laboratory results Abnormal [facility] Operator [id number] [facility] GLUCOSE, POINT OF CARE 168 High [facility] Interpretation and review of laboratory results Abnormal [facility] Operator [id number] [facility] MAGNESIUMon 09-24-2023 Magnesium [Mass/Vol] 2.0 mg/dL Normal 1.6-2.3 [facility] Magnesium [Mass/Vol] 2.0 mg/dL [facility] No Panel Informationon 09-24 Interpretation and review of laboratory results Abnormal [facility] POCT GLUCOSEon 09-24-2023 Glucose [Mass/Vol] 203 mg/dL High 70-100 [facility] ENCYCLOPEDIA RESEARCH WORKER [id number] Normal [facility] Glucose [Mass/Vol] 183 mg/dL High 70-100 [facility] ENCYCLOPEDIA RESEARCH WORKER [id number] Normal [facility] Glucose [Mass/Vol] 109 mg/dL High 70-100 [facility] ENCYCLOPEDIA RESEARCH WORKER [id number] Normal [facility] Glucose [Mass/Vol] 168 mg/dL High 70-100 [facility] ENCYCLOPEDIA RESEARCH WORKER [id number] Normal [facility] RENAL FUNCTION PANELon 09-24 Albumin [Mass/Vol] 3.2 G/dl Low 3.5 - 5.0 G/dl [facility] Calcium [Mass/Vol] 8.0 mg/dL Low [facility] Chloride [Moles/Vol] 111 mmol/L [facility] Comment on above: Please note: Triglyc eride levels of 600mg/dL or higher may positively bias chloride results by approximately 2.1 mmol CO2 [Moles/Vol] 24 mmol/L [facility] Creatinine [Mass/Vol] 1.10 mg/dL [facility] GFR COMMENT Average GFR for 40-49 years old = 99. [facility] Comment on above: Chronic Kidney disea se, GFR = <60. Kidney failure, GFR = <15. The GFR estimate is not adjusted for extreme body surface area or acute process, nor has it been validated for women or ethnic groups other than and . GFR/1.73 sq M.predicted among blacks MDRD (S/P/Bld) [Vol rate/Area] 92 mL/min/{1.73_m2} ml/min/1.73 sq.m [facility] GFR/1.73 sq M.predicted among non-blacks MDRD (S/P/Bld) [Vol rate/Area] 76 mL/min/{1.73_m2} ml/min/1.73 sq.m [facility] Glucose post fast [Mass/Vol] 106 mg/dL High [facility] Comment on above: NORMAL <100 mg/dL PREDIABETES 101-126 mg/dL DIABETES 126 mg/dL or higher Phosphate [Mass/Vol] 2.9 mg/dL [facility] Potassium [Moles/Vol] 3.8 mmol/L [facility] Sodium [Moles/Vol] 138 mmol/L [facility] Urea nitrogen [Mass/Vol] 17 mg/dL [facility] RENAL PANEL,FASTINGon 2022 ALBUMIN 3.2 G/dl Low 3.5-5.0 [facility] Calcium [Mass/Vol] 8.0 mg/dL Low 8.4-10.2 [facility] Chloride [Moles/Vol] 111 mmol/L High 98-107 [facility] Comment on above: Result Comment: Juana spencer note: Triglyceride levels of 600mg/dL or higher may positively bias chloride results by approximately 2.1 mmol CO2 [Moles/Vol] 24 mmol/L Normal 22-[address] [facility] Creatinine [Mass/Vol] 1.10 mg/dL Normal 0.7-1.2 [facility] EST. GFR, 92 ml/min/1.73sq.m [facility] EST. GFR,Non 76 ml/min/1.73sq.m [facility] GFR Information Average GFR for 40-49 years old = 99. Normal [facility] Comment on above: Result Comment: Sign Erector And Repairer alfreda Kidney disease, GFR = <60. Kidney failure, GFR = <15. The GFR estimate is not adjusted for extreme body surface area or acute process, nor has it been validated for women or ethnic groups other than and . Glucose [Mass/Vol] 106 mg/dL High 70-100 [facility] Comment on above: Result Comment: NORMAL <100 mg/dL PREDIABETES 101-126 mg/dL DIABETES 126 mg/dL or higher PHOSPHOROUS 2.9 MG/DL Normal 2.5-4.5 [facility] Potassium [Moles/Vol] 3.8 mmol/L Normal 3.5-5.1 [facility] Sodium [Moles/Vol] 138 mmol/L Normal 137-145 [facility] Urea nitrogen [Mass/Vol] 17 mg/dL Normal 7-20 [facility] B12 & FOLATEon 09-23-2023 Cobalamin (Vitamin B12) [Mass/Vol] 383 pg/mL 239 - 931 PG/ML [facility] Folate [Mass/Vol] 6.4 ng/mL [facility] B12 FOLATEon 09-23-2023 Cobalamin (Vitamin B12) [Mass/Vol] 383 pg/mL Normal 239-931 [facility] FOLATE 6.4 NG/ML Normal 2.56-20.0 [facility] CBCon 09-23-2023 ABSOLUTE BAS 0.0 10*3/uL Normal 0.0-0.2 [facility] ABSOLUTE EOS 0.0 10*3/uL Normal 0.0-0.7 [facility] ABSOLUTE NEUTROPHIL COUNT 12.1 10*3/uL High 1.4-6.5 [facility] Basophils/100 WBC (Bld) 0.1 % Normal 0.0-2.0 A [facility] DTYPE AUTO DIFF Normal [facility] Eosinophils/100 WBC (Bld) 0.1 % Normal 0.0-11.0 [facility] Lymphocytes (Bld) [#/Vol] 0.8 10*3/uL Low 1.2-3.4 [facility] Lymphocytes/100 WBC (Bld) 6.0 % Low 20.0-55.0 [facility] Monocytes (Bld) [#/Vol] 1.1 10*3/uL High 0.0-0.7 [facility] Monocytes/100 WBC (Bld) 7.6 % Normal 0.0-10.0 [facility] Neutrophils/100 WBC (Bld) 86.2 % High 37.0-75.0 [facility] Erythrocyte distribution width (RBC) [Ratio] 13.9 % Normal 11.5-14.5 [facility] Hematocrit (Bld) [Volume fraction] 34.7 % Low 42.0-52.0 [facility] Hemoglobin (Bld) [Mass/Vol] 11.6 g/dL Low 14.0-18. 0 [facility] MCH (RBC) [Entitic mass] 28.9 pg Normal 26.0-35.0 [facility] MCHC (RBC) [Mass/Vol] 33.4 g/dL Normal 27.0-37.0 [facility] MCV (RBC) [Entitic vol] 86.5 fL Normal 80.0-100.0 [facility] Platelet mean volume (Bld) [Entitic vol] 8.5 fL Normal 7.4-11.0 [facility] Platelets (Bld) [#/Vol] 167 10*3/uL Normal 130-400 [facility] RBC (Bld) [#/Vol] 4.01 10*6/uL Normal 4.0-6.1 [facility] WBC (Bld) [#/Vol] 14.1 10*3/uL High 3.6-11.0 [facility] CBC, EDIF, PLATELETon 2022 ABSOLUTE BASOPHIL COUNT 0.0 10*3/uL 0.0 - 0.2 10*3/uL [facility] Basophils/100 WBC (Bld) 0.1 % 0.0 - 2.0 % [facility] Differential cell count method Nom (Bld) AUTO DIFF % [facility] Eosinophils (Bld) [#/Vol] 0.0 10*3/uL 0. 0 - 0.7 10*3/uL [facility] Eosinophils/100 WBC (Bld) 0.1 % 0. 0 - 11.0 % [facility] Erythrocyte distribution width (RBC) [Ratio] 13.9 % 11.5 - 14.5 % [facility] Hematocrit (Bld) [Volume fraction] 34.7 % Low 42.0 - 52.0 % [facility] Hemoglobin (Bld) [Mass/Vol] 11.6 g/dL Low [facility] Interpretation and review of laboratory results Abnormal [facility] Lymphocytes (Bld) [#/Vol] 0.8 10*3/uL Low 1. 2 - 3.4 10*3/uL [facility] Lymphocytes/100 WBC (Bld) 6.0 % Low 20 .0 - 55.0 % [facility] MCH (RBC) [Entitic mass] 28.9 pg 26. 0 - 35.0 PG [facility] MCHC (RBC) [Mass/Vol] 33.4 g/dL [facility] MCV (RBC) [Entitic vol] 86.5 fL [facility] Monocytes (Bld) [#/Vol] 1.1 10*3/uL High 0.0 - 0.7 10*3/uL [facility] Monocytes/100 WBC (Bld) 7.6 % 0.0 - 10.0 % [facility] Neutrophils (Bld) [#/Vol] 12.1 10*3/uL High 1. 4 - 6.5 10*3/uL [facility] Neutrophils/100 WBC (Bld) 86.2 % High 37 .0 - 75.0 % [facility] Platelet mean volume (Bld) [Entitic vol] 8.5 fL [facility] Platelets (Bld) [#/Vol] 167 10*3/uL 130 - 400 10*3/uL [facility] RBC (Bld) [#/Vol] 4.01 10*6/uL 4.0 - 6.1 10*6/uL [facility] WBC (Bld) [#/Vol] 14.1 10*3/uL High 3.6 - 11.0 10*3/uL [facility] CKon 09-23-2023 CK [Catalytic activity/Vol] 787 U/L High [facility] CPKon 09-23-2023 CPK 787 IU/L High 55-170 [facility] Cardiac echo study Procedure on 09-23-2023 APPROVED REPORT Conclusion Normal to hyperdynamic LV systolic function ejection fraction 75% with no segmental wall motion abnormalities Mild concentric LVH Normal-appearing LV diastolic function No valvular disease or flow abnormalities identified Normal PA pressure by Doppler 22 mmHg No pericardial effusion Left Ventricle The left ventricle is normal size. The left ventricular systolic function is normal to hyperdynamic. No evidence of LV outflow track obstruction Mild concentric left ventricular hypertrophy. There is normal LV segmental wall motion. The left ventricular diastolic function is normal. 75% Right Ventricle The right ventricle is normal size. The right ventricular systolic function is normal. Atria The left atrium size is normal. The right atrium size is normal. Aortic Valve The aortic valve is normal in structure. There is no aortic valvular stenosis. No aortic regurgitation is present. Mitral Valve The mitral valve is normal in structure. No evidence of mitral valve stenosis. There is no mitral valve regurgitation noted. Tricuspid Valve The tricuspid valve is normal in structure. Mild tricuspid regurgitation. Normal PA pressure 22 mmHg Pulmonic Valve Pulmonic valve is not well visualized. Great Vessels The aortic root is normal in size. The ascending aorta is normal in size. IVC is normal in size and collapses >50% with inspiration. Pericardium There is no pericardial effusion. EXAM: Comprehensive 2D, Doppler, and color-flow Echocardiogram Imaging system used: [employer] 2D Dimensions IVSd 1.4 cm M: 0.6-1.0 LVEF (Torres's) 72.70 % M: 52 - 72 PWd 1.1 cm M: 0.6 - 1.0 EF AP4-a2DQ 73.36 % LVDd 4.0 cm M: 4.2 - 5.8 EF AP2-a2DQ 71.42 % LVDs 2.96 cm M: 2.5 - 4.0 EF BP-a2DQ 72.70 % Aortic Root 2.98 cm M: 3.1 - 3.7 LVESV 25 mL Aortic Root Index 1.4 cm/m2 LVEDV 92.15 mL M: 62 - 150 Ascending Aorta 3.09 cm M: 2.6 - 3.4 LV Volume Index 44.30 mL/m2 M: 34 - 74 Ascending Aorta Index: 1.5 cm/m2 LA Volume 45.0 mL Left Atrium 2.40 cm M: 3.0 - 4.0 LA Volume Index 21.63 mL/m2 (M/F) 16-34 LVOT 2.00 cm (M/F) 1.5-2.5 RV Major 2.95 cm TAPSE 2.6 >1.7 cm RV Minor 6.80 cm IVC 2.1 cm RVIDd 2.32 cm (M/F) 2.5-4.1 Right Atrium 4.7 cm (M/F) 2.9-4.5 LV Diastology E/A Ratio 1.3 Septal E' 0.12 (>=.07 m/s) LAT E' 0.11 (>=.10 m/s) E/LAT E' Ratio 8.41 (<=14) E/E AVG 8.02 Septal E/E' 7.67 Aortic Valve LVOT Max 1.20 (0.7-1.1 m/s) LVOT VTI 24.46 cm LVOT Peak GR 5.80 mmHg LVOT Mean GR 3.61 mmHg AV DI 0.90 (>0.25) AoV Peak Anders. 1.47 (0.5-1.3 m/s) AV Vmean 1.13 m/s AO Peak GR. 8.66 mmHg AO Mean GR. 5.70 (<5 mmHg) AO VTI 27.1 (18-25 cm) EZIO (VTI) 2.83 (2.5-4.5 cm2) Mitral Valve MV E Max Anders. 0.9 (0.4-1.3 m/s) MV A Velocity 0.69 (0.4-1.3 m/s) E/A Ratio 1.32 MV PHT 50.00 ms MVA PHT 4.40 cm2 MV Dec [place] 515.21 cm/s2 MV Decel. Time 176.32 (160-240 ms) Tricuspid Valve TR P. Velocity 2.17 m/s RAP Estimate 3 mmHg RVSP 21.75 mmHg TR maxPG 18.75 mmHg CARDIOLOGY Javid Colindres MD - 09/23/2023 APPROVED REPORT Conclusion Normal to hyperdynamic LV systolic function ejection fraction 75% with no segmental wall motion abnormalities Mild concentric LVH Normal-appearing LV diastolic function No valvular disease or flow abnormalities identified Normal PA pressure by Doppler 22 mmHg No pericardial effusion Left Ventricle The left ventricle is normal size. The left ventricular systolic function is normal to hyperdynamic. No evidence of LV outflow track obstruction Mild concentric left ventricular hypertrophy. There is normal LV segmental wall motion. The left ventricular diastolic function is normal. 75% Right Ventricle The right ventricle is normal size. The right ventricular systolic function is normal. Atria The left atrium size is normal. The right atrium size is normal. Aortic Valve The aortic valve is normal in structure. There is no aortic valvular stenosis. No aortic regurgitation is present. Mitral Valve The mitral valve is normal in structure. No evidence of mitral valve stenosis. There is no mitral valve regurgitation noted. Tricuspid Valve The tricuspid valve is normal in structure. Mild tricuspid regurgitation. Normal PA pressure 22 mmHg Pulmonic Valve Pulmonic valve is not well visualized. Great Vessels The aortic root is normal in size. The ascending aorta is normal in size. IVC is normal in size and collapses >50% with inspiration. Pericardium There is no pericardial effusion. EXAM: Comprehensive 2D, Doppler, and color-flow Echocardiogram Imaging system used: [employer] 2D Dimensions IVSd 1.4 cm M: 0.6-1.0LVEF (Torres's)72.70 % M: 52 - 72 PWd 1.1 cm M: 0.6 - 1.0EF AP4-a2DQ73.36 % LVDd 4.0 cm M: 4.2 - 5.8EF AP2-a2DQ71.42 % LVDs 2.96 cm M: 2.5 - 4.0EF BP-a2DQ72.70 % Aortic Root 2.98 cm M: 3.1 - 3.6XIQKH77 mL Aortic Root Index1.4 cm/l8DVPVU75.15 mL M: 62 - 150 Ascending Aorta 3.09 cm M: 2.6 - 3.4LV Volume Index44.30 mL/m2 M: 34 - 74 Ascending Aorta Index: 1.5 cm/m2LA Bpvisw84.0 mL Left Atrium 2.40 cm M: 3.0 - 4.0LA Volume Index21.63 mL/m2 (M/F) 16-34 LVOT2.00 cm (M/F) 1.5-2.5RV Major 2.95 cm TAPSE 2.6 >1.7 cmRV Minor6.80 cm IVC2.1 cmRVIDd2.32 cm (M/F) 2.5-4.1 Right Atrium 4.7 cm (M/F) 2.9-4.5 LV Diastology E/A Ratio 1.3Septal E'0.12 (>=.07 m/s) LAT E'0.11 (>=.10 m/s)E/LAT E' Ratio8.41 (<=14) E/E AVG 8.02Septal E/E'7.67 Aortic Valve LVOT Max1.20 (0.7-1.1 m/s)LVOT VTI24.46 cm LVOT Peak GR5.80 mmHgLVOT Mean GR3.61 mmHg AV DI0.90 (>0.25)AoV Peak Anders.1.47 (0.5-1.3 m/s) AV Vmean 1.13 m/Kaitlynn Peak GR.8.66 mmHg AO Mean GR.5.70 (<5 mmHg)AO VTI27.1 (18-25 cm) EZIO (VTI)2.83 (2.5-4.5 cm2) Mitral Valve MV E Max Anders.0.9 (0.4-1.3 m/s)MV A Velocity0.69 (0.4-1.3 m/s) E/A Ratio1.32MV PHT50.00 ms MVA PHT4.40 cm2MV Dec [place] 515.21 cm/s2 MV Decel. Xgeo193.32 (160-240 ms) Tricuspid Valve TR P. Velocity2.17 m/sRAP Estimate3 mmHg RVSP21.75 mmHgTR maxPG 18.75 mmHg [facility] Radiology Study observation (narrative) [facility] Cardiac echo study Procedure Ordered By: Javid Colindres on 09-23-2023 [facility] Work Phone: EEG AWAKE, ROUTINEon 023 Cecil Yu MD 09/23/2023 3:30 PM Interpreting physician: Cecil Yu M.D. This is a routine EEG performed on a 47 y.o. year-old male using standard 10-20 lead placement and a [employer] system. All data was obtained digitally and is available for reformatting and re-montage. There is continuous slow generalized activity in the 1-3 Hz range and 20-40 Microvolts amplitude range recorded in A generalized pattern throughout the record. There is some theta activity in the 4-6 Hz range and 20-40 microvolts amplitude range recorded intermixed throughout the record. There is no discernible posterior dominant rhythm which differentiates itself from the generalized slowing. There is no epileptiform activity recorded during the record. There are no seizures recorded during the record. Impression: This is an abnormal EEG due to continuous slow generalized activity consistent with a moderate diffuse encephalopathy. [facility] EEG AWAKE, ROUTINEOrdered By : Cecil Yu on 09-23-2023 [facility] Work Phone: GLUCOSE (POC DEVICE)on 09-23 GLUCOSE, POINT OF CARE 149 High [facility] Interpretation and review of laboratory results Abnormal [facility] Operator [phone] [facility] GLUCOSE, POINT OF CARE 149 High [facility] Interpretation and review of laboratory results Abnormal [facility] Operator [id number] [facility] GLUCOSE, POINT OF CARE 136 High [facility] Interpretation and review of laboratory results Abnormal [facility] Operator [id number] [facility] GLUCOSE, POINT OF CARE [address] [facility] Operator [id number] [facility] GLUCOSE, POINT OF CARE 85 [facility] It Operations Analyst [id number] [facility] GLUCOSE, POINT OF CARE 86 [facility] Operator [id number] [facility] MAGNESIUMon 09-23-2023 Magnesium [Mass/Vol] 1.9 mg/dL Normal 1.6-2.3 [facility] Magnesium [Mass/Vol] 1.9 mg/dL [facility] No Panel Informationon 09-23 Interpretation and review of laboratory results Abnormal [facility] POCT GLUCOSEon 09-23-2023 Glucose [Mass/Vol] 149 mg/dL High 70-100 [facility] ENCYCLOPEDIA RESEARCH WORKER [id number] Normal [facility] Glucose [Mass/Vol] 149 mg/dL High 70-100 [facility] ENCYCLOPEDIA RESEARCH WORKER [id number] Normal [facility] Glucose [Mass/Vol] 136 mg/dL High 70-100 [facility] ENCYCLOPEDIA RESEARCH WORKER [id number] Normal [facility] Glucose [Mass/Vol] 91 mg/dL Normal 70-100 [facility] ENCYCLOPEDIA RESEARCH WORKER [id number] Normal [facility] Glucose [Mass/Vol] 85 mg/dL Normal 70-100 [facility] ENCYCLOPEDIA RESEARCH WORKER [id number] Normal [facility] Glucose [Mass/Vol] 86 mg/dL Normal 70-100 [facility] ENCYCLOPEDIA RESEARCH WORKER [id number] Normal [facility] Glucose [Mass/Vol] 79 mg/dL Normal 70-100 [facility] Glucose [Mass/Vol] 89 mg/dL Normal 70-100 [facility] ENCYCLOPEDIA RESEARCH WORKER [id number] Normal [facility] ENCYCLOPEDIA RESEARCH WORKER [id number] Normal [facility] RENAL FUNCTION PANELon 09-23 Albumin [Mass/Vol] 3.5 G/dl 3.5 - 5.0 G/dl [facility] Calcium [Mass/Vol] 8.1 mg/dL Low [facility] Chloride [Moles/Vol] 112 mmol/L High [facility] Comment on above: Please note: Triglyc eride levels of 600mg/dL or higher may positively bias chloride results by approximately 2.1 mmol CO2 [Moles/Vol] 23 mmol/L [facility] Creatinine [Mass/Vol] 1.10 mg/dL [facility] GFR COMMENT Average GFR for 40-49 years old = 99. [facility] Comment on above: Chronic Kidney disea se, GFR = <60. Kidney failure, GFR = <15. The GFR estimate is not adjusted for extreme body surface area or acute process, nor has it been validated for women or ethnic groups other than and . GFR/1.73 sq M.predicted among blacks MDRD (S/P/Bld) [Vol rate/Area] 92 mL/min/{1.73_m2} ml/min/1.73 sq.m [facility] GFR/1.73 sq M.predicted among non-blacks MDRD (S/P/Bld) [Vol rate/Area] 76 mL/min/{1.73_m2} ml/min/1.73 sq.m [facility] Glucose post fast [Mass/Vol] 68 mg/dL Low [facility] Comment on above: NORMAL <100 mg/dL PREDIABETES 101-126 mg/dL DIABETES 126 mg/dL or higher Phosphate [Mass/Vol] 2.6 mg/dL [facility] Potassium [Moles/Vol] 3.6 mmol/L [facility] Sodium [Moles/Vol] 140 mmol/L [facility] Urea nitrogen [Mass/Vol] 22 mg/dL High [facility] RENAL PANEL,FASTINGon 2022 ALBUMIN 3.5 G/dl Normal 3.5-5.0 [facility] Calcium [Mass/Vol] 8.1 mg/dL Low 8.4-10.2 [facility] Chloride [Moles/Vol] 112 mmol/L High 98-107 [facility] Comment on above: Result Comment: Juana spencer note: Triglyceride levels of 600mg/dL or higher may positively bias chloride results by approximately 2.1 mmol CO2 [Moles/Vol] 23 mmol/L Normal 22-[address] [facility] Creatinine [Mass/Vol] 1.10 mg/dL Normal 0.7-1.2 [facility] EST. GFR, 92 ml/min/1.73sq.m Normal [facility] EST. GFR,Non 76 ml/min/1.73sq.m [facility] GFR Information Average GFR for 40-49 years old = 99. Normal [facility] Comment on above: Result Comment: Sign Erector And Repairer alfreda Kidney disease, GFR = <60. Kidney failure, GFR = <15. The GFR estimate is not adjusted for extreme body surface area or acute process, nor has it been validated for women or ethnic groups other than and . Glucose [Mass/Vol] 68 mg/dL Low 70-100 [facility] Comment on above: Result Comment: NORMAL <100 mg/dL PREDIABETES 101-126 mg/dL DIABETES 126 mg/dL or higher PHOSPHOROUS 2.6 MG/DL Normal 2.5-4.5 [facility] Potassium [Moles/Vol] 3.6 mmol/L Normal 3.5-5.1 [facility] Sodium [Moles/Vol] 140 mmol/L Normal 137-145 [facility] Urea nitrogen [Mass/Vol] 22 mg/dL High 7-20 [facility] URINE CULTUREon 09-23-2023 Bacteria identified Cx Nom (Unsp spec) NO GROWTH 2 DAYS [facility] Comment on above: Testing performed at [place], [place] [address] Service comment (Unsp spec) [Interp] 09/23/2023 [facility] Comment on above: FINAL SPECIMEN DESCRIPTION URINE - OTHER A [facility] AMMONIAon 09-22-2023 Ammonia (P) [Moles/Vol] 42 umol/L High 9-30 A [facility] Ammonia (P) [Mass/Vol] 42 ug/dL High [facility] Interpretation and review of laboratory results Abnormal [facility] ARTERIAL BLOOD GASon 023 JODY'S TEST NOT APPLICABLE Normal [facility] BASE DEFICIT 1.1 mEq/L Normal 0-2 [facility] cHCO3 (P,ST)C 23.5 mEq/L Normal 22-26 [facility] ctHb 12.2 g/dl Normal [facility] FCOHb 0.3 % Normal [facility] FMetHb 0.8 % Normal [facility] FO2Hb 97.8 % Normal [facility] O2 DEVICE VENT Normal [facility] PATIENT DIAGNOSIS RESPIRATORY FAILURE Normal [facility] PATIENT O2 SETTINGS 30% Normal [facility] pCO2, arterial 38 mmHg Normal 35-45 [facility] pH, arterial 7.40 Normal 7.350-7.450 [facility] pO2,arterial 150 mmHg High 80-100 [facility] SAMPLE SITE RIGHT BRACHIAL Normal [facility] sO2,arterial 98.9 % Normal 95-100 [facility] Arterial patency Wrist artery --pre arterial puncture NOT APPLICABLE [facility] Base deficit (BldV) [Moles/Vol] 1.1 [facility] Carboxyhemoglobin (Bld) [Mass fraction] 0.3 % [facility] CO2 (Bld) [Partial pressure] 38 mm[Hg] [facility] Diagnosis Narrative RESPIRATORY FAILURE [facility] HCO3 (Bld) [Moles/Vol] 23.5 mmol/L [facility] Hemoglobin (Bld) [Mass/Vol] 12.2 g/dL [facility] Interpretation and review of laboratory results Abnormal [facility] Methemoglobin (BldC) [Mass fraction] 0.8 % [facility] O2 Device VENT [facility] Oxygen (Bld) [Partial pressure] 150 mm[Hg] High [facility] Oxyhemoglobin (Bld) [Mass fraction] 97.8 % [facility] PATIENT PO2 SETTINGS 30% [facility] pH (Bld) 7.40 [pH] 7.350 - 7.450 [facility] Specimen site Narrative RIGHT BRACHIAL [facility] C REACTIVE PROTEINon 023 CRP [Mass/Vol] 18.1 mg/L High 0-10 [facility] CRP [Mass/Vol] 18.1 mg/L High 0 - 10 MG/L [facility] CBCon 09-22-2023 ABSOLUTE BAS 0.0 10*3/uL Normal 0.0-0.2 [facility] ABSOLUTE EOS 0.1 10*3/uL Normal 0.0-0.7 [facility] ABSOLUTE NEUTROPHIL COUNT 8.5 10*3/uL High 1.4-6.5 [facility] Basophils/100 WBC (Bld) 0.3 % Normal 0.0-2.0 [facility] DTYPE AUTO DIFF Normal [facility] Eosinophils/100 WBC (Bld) 0.5 % Normal 0.0-11.0 [facility] Lymphocytes (Bld) [#/Vol] 1.4 10*3/uL Normal 1.2-3.4 [facility] Lymphocytes/100 WBC (Bld) 12.4 % Low 20.0-55.0 [facility] [facility] Mon[facility] (Bld) [#/Vol] 1.0 10*3/uL High 0.0-0.7 [facility] Monocytes/100 WBC (Bld) 9.1 % Normal 0.0-10.0 [facility] Neutrophils/100 WBC (Bld) 77.7 % High 37.0-75.0 [facility] Erythrocyte distribution width (RBC) [Ratio] 14.1 % Normal 11.5-14.5 [facility] Hematocrit (Bld) [Volume fraction] 38.0 % Low 42.0-52.0 [facility] Comment on above: Result Comment: IV F LUIDS Hemoglobin (Bld) [Mass/Vol] 12.7 g/dL Low 14.0-18. 0 [facility] Comment on above: Result Comment: iv f luids MCH (RBC) [Entitic mass] 28.9 pg Normal 26.0-35.0 [facility] MCHC (RBC) [Mass/Vol] 33.4 g/dL Normal 27.0-37.0 [facility] MCV (RBC) [Entitic vol] 86.7 fL Normal 80.0-100.0 [facility] Platelet mean volume (Bld) [Entitic vol] 8.5 fL Normal 7.4-11.0 [facility] Platelets (Bld) [#/Vol] 151 10*3/uL Normal 130-400 [facility] RBC (Bld) [#/Vol] 4.39 10*6/uL Normal 4.0-6.1 [facility] WBC (Bld) [#/Vol] 11.0 10*3/uL Normal 3.6-11.0 [facility] CBC, EDIF, PLATELETon 2022 ABSOLUTE BASOPHIL COUNT 0.0 10*3/uL 0.0 - 0.2 10*3/uL [facility] Basophils/100 WBC (Bld) 0.3 % 0.0 - 2.0 % [facility] Differential cell count method Nom (Bld) AUTO DIFF % [facility] Eosinophils (Bld) [#/Vol] 0.1 10*3/uL 0. 0 - 0.7 10*3/uL [facility] Eosinophils/100 WBC (Bld) 0.5 % 0. 0 - 11.0 % [facility] Erythrocyte distribution width (RBC) [Ratio] 14.1 % 11.5 - 14.5 % [facility] Hematocrit (Bld) [Volume fraction] 38.0 % Low 42.0 - 52.0 % [facility] Comment on above: IV FLUIDS Hemoglobin (Bld) [Mass/Vol] 12.7 g/dL Low [facility] Comment on above: iv fluids Interpretation and review of laboratory results Abnormal [facility] Lymphocytes (Bld) [#/Vol] 1.4 10*3/uL 1. 2 - 3.4 10*3/uL [facility] Lymphocytes/100 WBC (Bld) 12.4 % Low 20 .0 - 55.0 % [facility] MCH (RBC) [Entitic mass] 28.9 pg 26. 0 - 35.0 PG [facility] MCHC (RBC) [Mass/Vol] 33.4 g/dL [facility] MCV (RBC) [Entitic vol] 86.7 fL [facility] Monocytes (Bld) [#/Vol] 1.0 10*3/uL High 0.0 - 0.7 10*3/uL [facility] Monocytes/100 WBC (Bld) 9.1 % 0.0 - 10.0 % [facility] Neutrophils (Bld) [#/Vol] 8.5 10*3/uL High 1. 4 - 6.5 10*3/uL [facility] Neutrophils/100 WBC (Bld) 77.7 % High 37 .0 - 75.0 % [facility] Platelet mean volume (Bld) [Entitic vol] 8.5 fL [facility] Platelets (Bld) [#/Vol] 151 10*3/uL 130 - 400 10*3/uL [facility] RBC (Bld) [#/Vol] 4.39 10*6/uL 4.0 - 6.1 10*6/uL [facility] WBC (Bld) [#/Vol] 11.0 10*3/uL 3.6 - 11.0 10*3/uL [facility] CKon 09-22-2023 CK [Catalytic activity/Vol] 282 U/L High [facility] CMP FASTINGon 09-22-2023 A:G RATIO 1.3 RATIO Normal 1.3-2.2 [facility] ALBUMIN 3.4 G/dl Low 3.5-5.0 [facility] ALP [Catalytic activity/Vol] 76 U/L Normal 38-126 [facility] ALT [Catalytic activity/Vol] 25 U/L Normal <50 [facility] AST [Catalytic activity/Vol] 35 U/L Normal 17-59 [facility] Bilirubin [Mass/Vol] 0.4 mg/dL Normal 0.2-1.3 [facility] Calcium [Mass/Vol] 8.2 mg/dL Low 8.4-10.2 [facility] Chloride [Moles/Vol] 109 mmol/L High 98-107 [facility] Comment on above: Result Comment: Juana spencer note: Triglyceride levels of 600mg/dL or higher may positively bias chloride results by approximately 2.1 mmol CO2 [Moles/Vol] 23 mmol/L Normal 22-[address] [facility] Creatinine [Mass/Vol] 1.40 mg/dL High 0.7-1.2 [facility] EST. GFR, 69 ml/min/1.73sq.m Normal [facility] EST. GFR,Non 57 ml/min/1.73sq.m [facility] GFR Information Average GFR for 40-49 years old = 99. Normal [facility] Comment on above: Result Comment: Sign Erector And Repairer alfreda Kidney disease, GFR = <60. Kidney failure, GFR = <15. The GFR estimate is not adjusted for extreme body surface area or acute process, nor has it been validated for women or ethnic groups other than and . Glucose [Mass/Vol] 72 mg/dL Normal 70-100 [facility] Comment on above: Result Comment: NORMAL <100 mg/dL PREDIABETES 101-126 mg/dL DIABETES 126 mg/dL or higher Potassium [Moles/Vol] 4.2 mmol/L Normal 3.5-5.1 [facility] Protein [Mass/Vol] 6.0 g/dL Low 6.3-8.2 [facility] Sodium [Moles/Vol] 138 mmol/L Normal 137-145 [facility] Urea nitrogen [Mass/Vol] 35 mg/dL High 7-20 [facility] COMPREHENSIVE METABOLIC PANE Jt 09-22-2023 Albumin [Mass/Vol] 3.4 G/dl Low 3.5 - 5.0 G/dl [facility] Albumin/Globulin [Mass ratio] 1.3 {ratio} [facility] ALP [Catalytic activity/Vol] 76 U/L [facility] ALT [Catalytic activity/Vol] 25 U/L NINF [facility] AST [Catalytic activity/Vol] 35 U/L [facility] Bilirubin [Mass/Vol] 0.4 mg/dL [facility] Calcium [Mass/Vol] 8.2 mg/dL Low [facility] Chloride [Moles/Vol] 109 mmol/L High [facility] Comment on above: Please note: Triglyc eride levels of 600mg/dL or higher may positively bias chloride results by approximately 2.1 mmol CO2 [Moles/Vol] 23 mmol/L [facility] Creatinine [Mass/Vol] 1.40 mg/dL High [facility] GFR COMMENT Average GFR for 40-49 years old = 99. [facility] Comment on above: Chronic Kidney disea se, GFR = <60. Kidney failure, GFR = <15. The GFR estimate is not adjusted for extreme body surface area or acute process, nor has it been validated for women or ethnic groups other than and . GFR/1.73 sq M.predicted among blacks MDRD (S/P/Bld) [Vol rate/Area] 69 mL/min/{1.73_m2} ml/min/1.73 sq.m [facility] GFR/1.73 sq M.predicted among non-blacks MDRD (S/P/Bld) [Vol rate/Area] 57 mL/min/{1.73_m2} ml/min/1.73 sq.m [facility] Glucose post fast [Mass/Vol] 72 mg/dL [facility] Comment on above: NORMAL <100 mg/dL PREDIABETES 101-126 mg/dL DIABETES 126 mg/dL or higher Interpretation and review of laboratory results Abnormal [facility] Potassium [Moles/Vol] 4.2 mmol/L [facility] Protein [Mass/Vol] 6.0 g/dL Low [facility] Sodium [Moles/Vol] 138 mmol/L [facility] Urea nitrogen [Mass/Vol] 35 mg/dL High [facility] CPKon 09-22-2023 CPK 282 IU/L High 55-170 [facility] ESRon 09-22-2023 ESR (Bld) [Velocity] 21 mm/h High 0-15 [facility] GLUCOSE (POC DEVICE)on 09-22 GLUCOSE, POINT OF CARE [address] [facility] GLUCOSE, POINT OF CARE [address] [facility] It Operations Analyst [id number] [facility] It Operations Analyst [id number] [facility] GLUCOSE, POINT OF CARE [address] [facility] It Operations Analyst [id number] [facility] GLUCOSE, POINT OF CARE [address] [facility] It Operations Analyst [id number] [facility] GLUCOSE, POINT OF CARE [address] [facility] Interpretation and review of laboratory results Abnormal [facility] Operator [id number] [facility] GLUCOSE, POINT OF CARE [address] [facility] It Operations Analyst [id number] [facility] GLUCOSE, POINT OF CARE 109 High [facility] GLUCOSE, POINT OF CARE [address] [facility] [employer] [facility] Interpretation and review of laboratory results Abnormal [facility] Operator [id number] [facility] It Operations Analyst [id number] [facility] HEMOGLOBIN A1Con 09-22-2023 Glucose [Mass/Vol] 280 mg/dL Normal [facility] HbA1c (Bld) [Mass fraction] 11.4 % High 0-6 [facility] Comment on above: Result Comment: NORMAL <5.7% PREDIABETES 5.7-6.4% DIABETES 6.5% OR HIGHER Glucose [Mass/Vol] 280 mg/dL [facility] HbA1c (Bld) [Mass fraction] 11.4 % High 0 - 6 % [facility] Comment on above: NORMAL <5.7% PREDIABETES 5.7-6.4% DIABETES 6.5% OR HIGHER Interpretation and review of laboratory results Abnormal [facility] MAGNESIUMon 09-22-2023 Magnesium [Mass/Vol] 2.0 mg/dL Normal 1.6-2.3 [facility] Magnesium [Mass/Vol] 2.0 mg/dL [facility] MR Brain WO contraston 09-22 IMPRESSION: No infarct, mass or hemorrhage RADIOLOGY EXAMINATION: MRI Brain without Contrast EXAM DATE: 09/22/2023 3:06 PM EST TECHNIQUE: Routine protocol brain MRI sequence acquisition without intravenous contrast. INDICATION: Altered mental status COMPARISON: 09/21/2023 CT FINDINGS: Motion artifact limits the evaluation somewhat No fluid collection, hemorrhage or diffusion abnormality. Brain signal and configuration are within normal limits. Age-appropriate CSF spaces. Major vascular flow voids are preserved. __ OTHER: [id number] sphenoid sinus mucosal inflammatory change, + polypoidal features on the right. RADIOLOGY Eduin De León MD - 09/22/2023 EXAMINATION: MRI Brain without Contrast EXAM DATE: 09/22/2023 3:06 PM EST TECHNIQUE: Routine protocol brain MRI sequence acquisition without intravenous contrast. INDICATION: Altered mental status COMPARISON: 09/21/2023 CT FINDINGS: Motion artifact limits the evaluation somewhat No fluid collection, hemorrhage or diffusion abnormality. Brain signal and configuration are within normal limits. Age-appropriate CSF spaces. Major vascular flow voids are preserved. __ OTHER: [id number] sphenoid sinus mucosal inflammatory change, + polypoidal features on the right. IMPRESSION IMPRESSION: No infarct, mass or hemorrhage [facility] Radiology Study observation (narrative) [facility] MR Brain WO contrastOrdered By: Eduin De León on 09-22-2023 [facility] Work Phone: MRI BRAIN WITHOUT CONTRASTon 09-22-2023 MRI BRAIN WITHOUT CONTRAST EXAMINATION: MRI Brain without Contrast EXAM DATE: 09/22/2023 3:06 PM EST TECHNIQUE: Routine protocol brain MRI sequence acquisition without intravenous contrast. INDICATION: Altered mental status COMPARISON: 09/21/2023 CT FINDINGS: Motion artifact limits the evaluation somewhat No fluid collection, hemorrhage or diffusion abnormality. Brain signal and configuration are within normal limits. Age-appropriate CSF spaces. Major vascular flow voids are preserved. __ OTHER: Jozv-pa-ahnseemc sphenoid sinus mucosal inflammatory change, + polypoidal features on the right. IMPRESSION: No infarct, mass or hemorrhage Normal [facility] MRSA SCREENon 09-22-2023 MRSA DNA MEETA+probe Ql (Unsp spec) Negative Normal NEGATIVE [facility] STAPH AUREUS SCREEN Positive Abnormal NEGATIVE [facility] Comment on above: Result Comment: TEST ING PERFORMED BY PCR No Panel Informationon 09-22 [facility] Interpretation and review of laboratory results Abnormal [facility] POCT GLUCOSEon 09-22-2023 Glucose [Mass/Vol] 98 mg/dL Normal 70-100 [facility] ENCYCLOPEDIA RESEARCH WORKER [id number] Normal [facility] Glucose [Mass/Vol] 73 mg/dL Normal 70-100 [facility] ENCYCLOPEDIA RESEARCH WORKER [id number] Normal [facility] Glucose [Mass/Vol] 67 mg/dL Low 70-100 [facility] ENCYCLOPEDIA RESEARCH WORKER [id number] Normal [facility] Glucose [Mass/Vol] 80 mg/dL Normal 70-100 [facility] ENCYCLOPEDIA RESEARCH WORKER [id number] Normal [facility] Glucose [Mass/Vol] 95 mg/dL Normal 70-100 [facility] Glucose [Mass/Vol] 109 mg/dL High 70-100 [facility] ENCYCLOPEDIA RESEARCH WORKER [id number] Normal [facility] ENCYCLOPEDIA RESEARCH WORKER [id number] Normal [facility] Glucose [Mass/Vol] 158 mg/dL High 70-100 [facility] ENCYCLOPEDIA RESEARCH WORKER [id number] Normal [facility] PROCALCITONINon 09-22-2023 PROCALCITONIN 0.08 ng/mL Normal 0.00-0.25 [facility] Comment on above: Result Comment: PCT Interpretation Less than 0.10 ng/mL, antibiotic therapy strongly discouraged. 0.10-0.25 ng/mL, antibiotic therapy discouraged. 0.25-0.50 ng/mL, antibiotic therapy encouraged. Greater than 0.50 ng/mL, antibiotic therapy strongly encouraged. PROCALCITONIN 0.08 ng/mL 0.00 - 0.25 ng/mL [facility] Comment on above: PCT Interpretation Less than 0.10 ng/mL, antibiotic therapy strongly discouraged. 0.10-0.25 ng/mL, antibiotic therapy discouraged. 0.25-0.50 ng/mL, antibiotic therapy encouraged. Greater than 0.50 ng/mL, antibiotic therapy strongly encouraged. [facility] RAPID TOX SCREEN,URINEon AMPHETAMINE Negative Normal NEGATIVE [facility] Comment on above: Result Comment: <500 ng/ml CUTOFF BARBITURATES Negative Normal NEGATIVE [facility] Comment on above: Result Comment: <200 ng/ml CUTOFF BENZODIAZEPINES Positive Abnormal NEGATIVE [facility] Comment on above: Result Comment: <200 ng/ml CUTOFF *Unconfirmed Screening Result* Unconfirmed screening results are to be used only for medical treatment purposes. BUPRENORPHINE Negative Normal NEGATIVE [facility] Comment on above: Result Comment: <12. 5 ng/ml CUTOFF CANNABINOIDS Negative Normal NEGATIVE [facility] Comment on above: Result Comment: <50 ng/ml CUTOFF COCAINE Negative Normal NEGATIVE [facility] Comment on above: Result Comment: <150 ng/ml CUTOFF FENTANYL Negative Normal NEGATIVE [facility] Comment on above: Result Comment: 20 n g/mL CUTOFF *Unconfirmed Screening Result* Unconfirmed screening results are to be used only for medical treatment purposes. This test has not been approved by the FDA. MDMA Positive Abnormal NEGATIVE [facility] Comment on above: Result Comment: <100 0 ng/ml CUTOFF METHADONE Negative Normal NEGATIVE [facility] Comment on above: Result Comment: Meth adone Metabolite <100 ng/ml CUTOFF METHAMPHETAMINE Negative Normal NEGATIVE [facility] Comment on above: Result Comment: <500 ng/ml CUTOFF OPIATES Negative Normal NEGATIVE [facility] Comment on above: Result Comment: <300 ng/ml CUTOFF OXYCODONE Negative Normal NEGATIVE [facility] Comment on above: Result Comment: <100 ng/ml CUTOFF TRICYCLIC ANTIDEPRESSANTS Negative Normal NEGATIVE [facility] Comment on above: Result Comment: <100 0 ng/ml CUTOFF RESPIRATORY SYNCYTIAL VIRUS PCRon 09-22-2023 RSV Ag IA Ql (Unsp spec) Negative NEGATIVE [facility] RSVon 09-22-2023 RSV Negative Normal NEGATIVE [facility] SEDIMENTATION RATE, AUTOMATE Don 09-22-2023 ESR (Bld) [Velocity] 21 mm/h [facility] Interpretation and review of laboratory results Abnormal [facility] TOXICOLOGY DRUG SCREEN, URIN Harpreet 09-22-2023 Amphetamine (U) [Mass/Vol] Negative N EGATIVE NG/ML [facility] Comment on above: <500 ng/ml CUTOFF Barbiturates Screen Ql (U) Negative N EGATIVE NG/ML [facility] Comment on above: <200 ng/ml CUTOFF Benzodiazepines Ql (U) Positive Abnormal NEGAT RAJAN NG/ML [facility] Comment on above: <200 ng/ml CUTOFF *Unconfirmed Screening Result* Unconfirmed screening results are to be used only for medical treatment purposes. Benzoylecgonine Ql (U) Negative NEGAT RAJAN NG/ML [facility] Comment on above: <150 ng/ml CUTOFF Buprenorphine Ql (U) Negative NEGATIV E NG/ML [facility] Comment on above: <12.5 ng/ml CUTOFF Cannabinoids Screen Ql (U) Negative N EGATIVE NG/ML [facility] Comment on above: <50 ng/ml CUTOFF Fentanyl Negative NEGATIVE NG/ML [facility] Comment on above: 20 ng/mL CUTOFF *Unconfirmed Screening Result* Unconfirmed screening results are to be used only for medical treatment purposes. This test has not been approved by the FDA. Interpretation and review of laboratory results Abnormal [facility] Methadone Screen Ql (U) Negative NEGA TIVE NG/ML [facility] Comment on above: Methadone Metabolite <100 ng/ml CUTOFF Methamphetamine (U) [Mass/Vol] Negative NEGATIVE NG/ML [facility] Comment on above: <500 ng/ml CUTOFF Methylenedioxymethamphetamin e Ql (Unsp spec) Positive Abnormal NEGATIVE NG/ML [facility] Comment on above: <1000 ng/ml CUTOFF Opiates Screen Ql (U) Negative NEGATI VE NG/ML [facility] Comment on above: <300 ng/ml CUTOFF oxyCODONE Ql (U) Negative NEGATIVE NG/ML [facility] Comment on above: <100 ng/ml CUTOFF Tricyclic antidepressants Screen Ql (U) Negative NEGATIVE NG/ML [facility] Comment on above: <1000 ng/ml CUTOFF [facility] TROPONIN I, HIGH SENSITIVITY on 09-22-2023 TROPONIN I, HIGH SENSITIVITY 28 pg/mL High 0-20 [facility] Comment on above: Result Comment: Indeterminant: >12 to 100 pg/mL female >20 to 100 pg/mL male Indicative of myocardial injury. Serial sampling is recommended, a change of greater than or equal to 20 pg/mL is indicative of acute coronary syndrome. Interpretation and review of laboratory results Abnormal [facility] TROPONIN I, HIGH SENSITIVITY 28 pg/mL High 0 - 20 pg/mL [facility] Comment on above: Indeterminant: >12 to 100 pg/mL female >20 to 100 pg/mL male Indicative of myocardial injury. Serial sampling is recommended, a change of greater than or equal to 20 pg/mL is indicative of acute coronary syndrome. [facility] TSH W/FT4 REFLEXon 3 TSH Qn 0.594 m[IU]/L [facility] TSH,REFLEX FREE T4on 023 TSH,REFLEX FREE T4 0.594 uIU/ML Normal 0.46-4.68 [facility] VENTILATOR SETTINGSon 2022 fiO2 30% Normal [facility] PEEP 5 cmH2O [facility] PRESSURE SUPPORT [address] [facility] VENT SETTING PS [facility] BIPAP AndOr CPAP setting Ventilator PS [facility] Oxygen/Inspired gas setting [Volume Fraction] Ventilator 30% % [facility] Positive end expiratory pressure setting Ventilator 5 cmH2O [facility] Pressure support setting Ventilator 5 cmH2O [facility] ALCOHOLon 09-21-2023 Ethanol [Mass/Vol] mg/dL Normal 0-10 [facility] Comment on above: Result Comment: INTOXICATION >80 MG/DL FATAL >400 MG/DL ALCOHOL (ETHANOL),BLOODon Ethanol [Mass/Vol] mg/dL [facility] Comment on above: INTOXICATION >80 MG/DL FATAL >400 MG/DL ARTERIAL BLOOD GASon 023 BASE EXCESS 1.3 mEq/L Normal 0-2 [facility] cHCO3 (P,ST)C 25.9 mEq/L Normal 22-26 [facility] ctHb 14.1 g/dl Normal [facility] FCOHb 0.6 % Normal [facility] FMetHb 0.5 % Normal [facility] FO2Hb 98.7 % Normal [facility] pCO2, arterial 40 mmHg Normal 35-45 [facility] pH, arterial 7.42 Normal 7.350-7.450 [facility] pO2,arterial 492 mmHg High 80-100 [facility] sO2,arterial 99.9 % Normal 95-100 [facility] Base excess Calc (BldV) [Moles/Vol] 1.3 mmol/L [facility] Carboxyhemoglobin (Bld) [Mass fraction] 0.6 % [facility] CO2 (Bld) [Partial pressure] 40 mm[Hg] [facility] HCO3 (Bld) [Moles/Vol] 25.9 mmol/L A [facility] Hemoglobin (Bld) [Mass/Vol] 14.1 g/dL [facility] Interpretation and review of laboratory results Abnormal [facility] Methemoglobin (BldC) [Mass fraction] 0.5 % [facility] Oxygen (Bld) [Partial pressure] 492 mm[Hg] High [facility] Oxyhemoglobin (Bld) [Mass fraction] 98.7 % [facility] pH (Bld) 7.42 [pH] 7.350 - 7.450 [facility] BLOOD CULTUREon 09-21-2023 Bacteria identified Cx Nom (Bld) SPECIMEN DESCRIPTION PERIPHERAL BLOOD DRAW SPECIAL REQUESTS LEFT HAND CULTURE NO GROWTH 5 DAYS * Result Note: Testing performed at [place], [place] [address] * REPORT STATUS 09/26/2023 * Result Note: FINAL * Normal [facility] Comment on above: Performed By: #### L HSV #### Testing performed at [facility] Bacteria identified Cx Nom (Bld) SPECIMEN DESCRIPTION PERIPHERAL BLOOD DRAW SPECIAL REQUESTS LEFT ARM CULTURE NO GROWTH 5 DAYS * Result Note: Testing performed at [place], [place] [address] * REPORT STATUS 09/26/2023 * Result Note: FINAL * Normal [facility] Comment on above: Performed By: #### L HSV #### Testing performed at [facility] CBCon 09-21-2023 ABSOLUTE BAS 0.0 10*3/uL Normal 0.0-0.2 [facility] ABSOLUTE EOS 0.0 10*3/uL Normal 0.0-0.7 [facility] ABSOLUTE NEUTROPHIL COUNT 9.8 10*3/uL High 1.4-6.5 [facility] Basophils/100 WBC (Bld) 0.2 % Normal 0.0-2.0 [facility] DTYPE AUTO DIFF Normal [facility] Eosinophils/100 WBC (Bld) 0.2 % Normal 0.0-11.0 [facility] Lymphocytes (Bld) [#/Vol] 0.6 10*3/uL Low 1.2-3.4 [facility] Lymphocytes/100 WBC (Bld) 5.6 % Low 20.0-55.0 [facility] Monocytes (Bld) [#/Vol] 0.3 10*3/uL Normal 0.0-0.7 [facility] Monocytes/100 WBC (Bld) 3.0 % Normal 0.0-10.0 [facility] Neutrophils/100 WBC (Bld) 91.0 % High 37.0-75.0 [facility] Erythrocyte distribution width (RBC) [Ratio] 14.3 % Normal 11.5-14.5 [facility] Hematocrit (Bld) [Volume fraction] 42.6 % Normal 42.0-52.0 [facility] Hemoglobin (Bld) [Mass/Vol] 14.5 g/dL Normal 14.0-18. 0 [facility] MCH (RBC) [Entitic mass] 29.1 pg Normal 26.0-35.0 [facility] MCHC (RBC) [Mass/Vol] 34.0 g/dL Normal 27.0-37.0 [facility] MCV (RBC) [Entitic vol] 85.6 fL Normal 80.0-100.0 [facility] Platelet mean volume (Bld) [Entitic vol] 8.5 fL Normal 7.4-11.0 [facility] Platelets (Bld) [#/Vol] 176 10*3/uL Normal 130-400 [facility] RBC (Bld) [#/Vol] 4.98 10*6/uL Normal 4.0-6.1 [facility] WBC (Bld) [#/Vol] 10.8 10*3/uL Normal 3.6-11.0 [facility] CBC, EDIF, PLATELETon 2022 ABSOLUTE BASOPHIL COUNT 0.0 10*3/uL 0.0 - 0.2 10*3/uL [facility] Basophils/100 WBC (Bld) 0.2 % 0.0 - 2.0 % [facility] Differential cell count method Nom (Bld) AUTO DIFF % [facility] Eosinophils (Bld) [#/Vol] 0.0 10*3/uL 0. 0 - 0.7 10*3/uL [facility] Eosinophils/100 WBC (Bld) 0.2 % 0. 0 - 11.0 % [facility] Erythrocyte distribution width (RBC) [Ratio] 14.3 % 11.5 - 14.5 % [facility] Hematocrit (Bld) [Volume fraction] 42.6 % 42.0 - 52.0 % [facility] Hemoglobin (Bld) [Mass/Vol] 14.5 g/dL [facility] Interpretation and review of laboratory results Abnormal [facility] Lymphocytes (Bld) [#/Vol] 0.6 10*3/uL Low 1. 2 - 3.4 10*3/uL [facility] Lymphocytes/100 WBC (Bld) 5.6 % Low 20 .0 - 55.0 % [facility] MCH (RBC) [Entitic mass] 29.1 pg 26. 0 - 35.0 PG [facility] MCHC (RBC) [Mass/Vol] 34.0 g/dL [facility] MCV (RBC) [Entitic vol] 85.6 fL A [facility] Monocytes (Bld) [#/Vol] 0.3 10*3/uL 0.0 - 0.7 10*3/uL [facility] Monocytes/100 WBC (Bld) 3.0 % 0.0 - 10.0 % [facility] Neutrophils (Bld) [#/Vol] 9.8 10*3/uL High 1. 4 - 6.5 10*3/uL [facility] Neutrophils/100 WBC (Bld) 91.0 % High 37 .0 - 75.0 % [facility] Platelet mean volume (Bld) [Entitic vol] 8.5 fL [facility] Platelets (Bld) [#/Vol] 176 10*3/uL 130 - 400 10*3/uL [facility] RBC (Bld) [#/Vol] 4.98 10*6/uL 4.0 - 6.1 10*6/uL [facility] WBC (Bld) [#/Vol] 10.8 10*3/uL 3.6 - 11.0 10*3/uL [facility] CMP FASTINGon 09-21-2023 A:G RATIO 1.5 RATIO Normal 1.3-2.2 [facility] ALBUMIN 4.4 G/dl Normal 3.5-5.0 [facility] ALP [Catalytic activity/Vol] 103 U/L Normal 38-126 [facility] ALT [Catalytic activity/Vol] 34 U/L Normal <50 [facility] AST [Catalytic activity/Vol] 39 U/L Normal 17-59 [facility] Bilirubin [Mass/Vol] 0.6 mg/dL Normal 0.2-1.3 [facility] Calcium [Mass/Vol] 9.0 mg/dL Normal 8.4-10.2 [facility] Chloride [Moles/Vol] 103 mmol/L Normal 98-107 [facility] Comment on above: Result Comment: Juana spencer note: Triglyceride levels of 600mg/dL or higher may positively bias chloride results by approximately 2.1 mmol CO2 [Moles/Vol] 24 mmol/L Normal 22-[address] [facility] Creatinine [Mass/Vol] 1.30 mg/dL High 0.7-1.2 [facility] GFR Information Unable to calculate GFR due to inappropriate age/gender/creatin ine value. Normal [facility] Glucose [Mass/Vol] 245 mg/dL High 70-100 [facility] Comment on above: Result Comment: NORMAL <100 mg/dL PREDIABETES 101-126 mg/dL DIABETES 126 mg/dL or higher Potassium [Moles/Vol] 4.0 mmol/L Normal 3.5-5.1 [facility] Protein [Mass/Vol] 7.3 g/dL Normal 6.3-8.2 [facility] Sodium [Moles/Vol] 135 mmol/L Low 137-145 [facility] Urea nitrogen [Mass/Vol] 37 mg/dL High 7-20 [facility] COMPREHENSIVE METABOLIC PANE Jt 09-21-2023 Albumin [Mass/Vol] 4.4 G/dl 3.5 - 5.0 G/dl [facility] Albumin/Globulin [Mass ratio] 1.5 {ratio} [facility] ALP [Catalytic activity/Vol] 103 U/L [facility] ALT [Catalytic activity/Vol] 34 U/L [facility] AST [Catalytic activity/Vol] 39 U/L [facility] Bilirubin [Mass/Vol] 0.6 mg/dL [facility] Calcium [Mass/Vol] 9.0 mg/dL [facility] Chloride [Moles/Vol] 103 mmol/L [facility] Comment on above: Please note: Triglyc eride levels of 600mg/dL or higher may positively bias chloride results by approximately 2.1 mmol CO2 [Moles/Vol] 24 mmol/L [facility] Creatinine [Mass/Vol] 1.30 mg/dL High [facility] GFR COMMENT Unable to calculate GFR due to inappropriate age/gender/creatin ine value. [facility] Glucose post fast [Mass/Vol] 245 mg/dL [facility] [place] Comment on above: NORMAL <100 mg/dL PREDIABETES 101-126 mg/dL DIABETES 126 mg/dL or higher Interpretation and review of laboratory results Abnormal [facility] Potassium [Moles/Vol] 4.0 mmol/L [facility] Protein [Mass/Vol] 7.3 g/dL [facility] Sodium [Moles/Vol] 135 mmol/L Low [facility] Urea nitrogen [Mass/Vol] 37 mg/dL High [facility] CT HEAD WITHOUT CONTRASTon 1 11-22-2022 CT HEAD WITHOUT CONTRAST CT HEAD WITHOUT CONTRAST: 09/21/2023 5:07 PM EST HISTORY: Unresponsive TECHNIQUE: CT scan brain without IV contrast was obtained. COMPARISON: None. FINDINGS: There is a normal sulcal pattern and gyral configuration. No mass or mass effect or intracranial hemorrhage is seen. CSF spaces are normal in size and configuration. Cerebellum and brainstem appear grossly normal. Mastoid and ethmoid air cells are well-developed and pneumatized. The visualized paranasal sinuses appear normal. IMPRESSION: No evidence of intracranial hemorrhage or other acute finding. Normal [facility] CT Head WO contraston 2022 IMPRESSION: No evidence of intracranial hemorrhage or other acute finding. RADIOLOGY CT HEAD WITHOUT CONTRAST: 09/21/2023 5:07 PM EST HISTORY: Unresponsive TECHNIQUE: CT scan brain without IV contrast was obtained. COMPARISON: None. FINDINGS: There is a normal sulcal pattern and gyral configuration. No mass or mass effect or intracranial hemorrhage is seen. CSF spaces are normal in size and configuration. Cerebellum and brainstem appear grossly normal. Mastoid and ethmoid air cells are well-developed and pneumatized. The visualized paranasal sinuses appear normal. RADIOLOGY Kris Cherry MD - 09/21/2023 CT HEAD WITHOUT CONTRAST: 09/21/2023 5:07 PM EST HISTORY: Unresponsive TECHNIQUE: CT scan brain without IV contrast was obtained. COMPARISON: None. FINDINGS: There is a normal sulcal pattern and gyral configuration. No mass or mass effect or intracranial hemorrhage is seen. CSF spaces are normal in size and configuration. Cerebellum and brainstem appear grossly normal. Mastoid and ethmoid air cells are well-developed and pneumatized. The visualized paranasal sinuses appear normal. IMPRESSION IMPRESSION: No evidence of intracranial hemorrhage or other acute finding. [facility] Radiology Study observation (narrative) [facility] CT Head WO contrastOrdered B y: Kris Cherry on 09-21-2023 [facility] Work Phone: CT SPINE CERVICAL WITHOUT CO NTRASTon 09-21-2023 CT SPINE CERVICAL WITHOUT CONTRAST EXAMINATION: CT SPINE CERVICAL WITHOUT CONTRAST HISTORY: Found down, unresponsive COMPARISON: None. TECHNIQUE: CT Cervical spine without IV contrast. Coronal and sagittal reformations were performed. Dose reduction techniques were achieved by using automated exposure control and/or adjustment of mA and/or kV according to patient size and/or use of iterative reconstruction technique. FINDINGS: Motion degraded exam. No definite CT evidence of acute osseous abnormality. No spondylolisthesis or subluxation. Moderate degenerative disc disease C5-C6 and severe degenerative disc disease C6-T1. Areas of severe facet arthropathy, particularly at C3-C4 bilaterally. Severe bilateral foraminal narrowing C3-C4. Severe right foraminal narrowing C4-C5. Severe bilateral foraminal narrowing C5-C7. Spinal canal appears congenitally narrow, mildly narrowed at C3-C4, mildly-moderately narrowed at C4-C5, moderately-severel y narrowed from C5 through C7. IMPRESSION: Motion degraded exam. No definite CT evidence of acute osseous abnormality. Degenerative changes detailed above. Normal [facility] GLUCOSE (POC DEVICE)on 09-21 GLUCOSE, POINT OF CARE [address] [facility] Interpretation and review of laboratory results Abnormal [facility] It Operations Analyst [id number] [facility] GLUCOSE, POINT OF CARE [address] [facility] Interpretation and review of laboratory results Abnormal [facility] Operator [id number] [facility] LACTATE, BLOODon 09-21-2023 Interpretation and review of laboratory results Abnormal [facility] Lactate [Moles/Vol] 2.1 mmol/L Critically high 0.7 - 2.0 mmol/L [facility] Comment on above: PLEASE REPEAT INITIA L CRITICAL IN 3 HOURS IF ED OR INPATIENT SEPSIS PATIENT CALLED TO AND READ BACK BY VIGNESH FONTENOT IN ER 12.6.23 1706 BY MAUREEN [facility] LACTATE,BLOODon 09-21-2023 Lactate [Moles/Vol] 2.1 mmol/L Critically high 0.7-2.0 [facility] Comment on above: Result Comment: PLEA SE REPEAT INITIAL CRITICAL IN 3 HOURS IF ED OR INPATIENT SEPSIS PATIENT CALLED TO AND READ BACK BY VIGNESH FONTENOT IN ER 12.6.23 1706 BY MAUREEN MAGNESIUMon 09-21-2023 Magnesium [Mass/Vol] 2.0 mg/dL Normal 1.6-2.3 [facility] Magnesium [Mass/Vol] 2.0 mg/dL [facility] No Panel Informationon 09-21 Interpretation and review of laboratory results Abnormal [facility] POCT GLUCOSEon 09-21-2023 Glucose [Mass/Vol] 232 mg/dL High 70-100 [facility] ENCYCLOPEDIA RESEARCH WORKER [id number] Normal [facility] Portable XR Chest Views APon 09-21-2023 IMPRESSION: Appropriate positioning of the endotracheal tube. No acute cardiopulmonary abnormality. RADIOLOGY EXAM: XR CHEST AP PORTABLE REASON FOR EXAM: ET placement TECHNIQUE: Single frontal view COMPARISON: None FINDINGS: Endotracheal tube terminates 3.4 cm above the ravindra. No pneumothorax, pleural effusion, or focal consolidation. The cardiac silhouette is not enlarged. RADIOLOGY Deven Junior, DO - 09/21/2023 EXAM: XR CHEST AP PORTABLE REASON FOR EXAM: ET placement TECHNIQUE: Single frontal view COMPARISON: None FINDINGS: Endotracheal tube terminates 3.4 cm above the ravindra. No pneumothorax, pleural effusion, or focal consolidation. The cardiac silhouette is not enlarged. IMPRESSION IMPRESSION: Appropriate positioning of the endotracheal tube. No acute cardiopulmonary abnormality. [facility] Radiology Study observation (narrative) [facility] Portable XR Chest Views APOr dered By: Deven Junior on 09-21-2023 [facility] Work Phone: RAPID TOX SCREEN,URINEon AMPHETAMINE Negative Normal NEGATIVE [facility] Comment on above: Result Comment: <500 ng/ml CUTOFF BARBITURATES Negative Normal NEGATIVE [facility] Comment on above: Result Comment: <200 ng/ml CUTOFF BENZODIAZEPINES Positive Abnormal NEGATIVE [facility] Comment on above: Result Comment: <200 ng/ml CUTOFF *Unconfirmed Screening Result* Unconfirmed screening results are to be used only for medical treatment purposes. BUPRENORPHINE Negative Normal NEGATIVE [facility] Comment on above: Result Comment: <12. 5 ng/ml CUTOFF CANNABINOIDS Negative Normal NEGATIVE [facility] Comment on above: Result Comment: <50 ng/ml CUTOFF COCAINE Negative Normal NEGATIVE [facility] Comment on above: Result Comment: <150 ng/ml CUTOFF FENTANYL Negative Normal NEGATIVE [facility] Comment on above: Result Comment: 20 n g/mL CUTOFF *Unconfirmed Screening Result* Unconfirmed screening results are to be used only for medical treatment purposes. This test has not been approved by the FDA. MDMA Positive Abnormal NEGATIVE [facility] Comment on above: Result Comment: <100 0 ng/ml CUTOFF METHADONE Negative Normal NEGATIVE [facility] Comment on above: Result Comment: Meth adone Metabolite <100 ng/ml CUTOFF METHAMPHETAMINE Negative Normal NEGATIVE [facility] Comment on above: Result Comment: <500 ng/ml CUTOFF OPIATES Negative Normal NEGATIVE [facility] Comment on above: Result Comment: <300 ng/ml CUTOFF OXYCODONE Negative Normal NEGATIVE [facility] Comment on above: Result Comment: <100 ng/ml CUTOFF TRICYCLIC ANTIDEPRESSANTS Negative Normal NEGATIVE [facility] Comment on above: Result Comment: <100 0 ng/ml CUTOFF SCREEN: MRSA ONLY, NARES (IS OLATION SCREEN)on 09-21-2023 Interpretation and review of laboratory results Abnormal [facility] MRSA isol Org specific cx Ql (Nose) Negative NEGATIVE [facility] STAPHYOCOCCUS AUREUS BY PCR Positive Abnormal NEGATIVE [facility] Comment on above: TESTING PERFORMED BY PCR [facility] TOXICOLOGY DRUG SCREEN, URIN Harpreet 09-21-2023 Amphetamine (U) [Mass/Vol] Negative N EGATIVE NG/ML [facility] Comment on above: <500 ng/ml CUTOFF Barbiturates Screen Ql (U) Negative N EGATIVE NG/ML [facility] Comment on above: <200 ng/ml CUTOFF Benzodiazepines Ql (U) Positive Abnormal NEGAT RAJAN NG/ML [facility] Comment on above: <200 ng/ml CUTOFF *Unconfirmed Screening Result* Unconfirmed screening results are to be used only for medical treatment purposes. Benzoylecgonine Ql (U) Negative NEGAT RAJAN NG/ML [facility] Comment on above: <150 ng/ml CUTOFF Buprenorphine Ql (U) Negative NEGATIV E NG/ML [facility] Comment on above: <12.5 ng/ml CUTOFF Cannabinoids Screen Ql (U) Negative N EGATIVE NG/ML [facility] Comment on above: <50 ng/ml CUTOFF Fentanyl Negative NEGATIVE NG/ML [facility] Comment on above: 20 ng/mL CUTOFF *Unconfirmed Screening Result* Unconfirmed screening results are to be used only for medical treatment purposes. This test has not been approved by the FDA. Interpretation and review of laboratory results Abnormal [facility] Methadone Screen Ql (U) Negative NEGA TIVE NG/ML [facility] Comment on above: Methadone Metabolite <100 ng/ml CUTOFF Methamphetamine (U) [Mass/Vol] Negative NEGATIVE NG/ML [facility] Comment on above: <500 ng/ml CUTOFF Methylenedioxymethamphetamin e Ql (Unsp spec) Positive Abnormal NEGATIVE NG/ML [facility] Comment on above: <1000 ng/ml CUTOFF Opiates Screen Ql (U) Negative NEGATI VE NG/ML [facility] Comment on above: <300 ng/ml CUTOFF oxyCODONE Ql (U) Negative NEGATIVE NG/ML [facility] Comment on above: <100 ng/ml CUTOFF Tricyclic antidepressants Screen Ql (U) Negative NEGATIVE NG/ML [facility] Comment on above: <1000 ng/ml CUTOFF [facility] URINALYSIS, MACROon 09-21-20 23 Bilirubin Ql (U) Negative NEGATIVE [facility] Clarity (U) CLEAR CLEAR [facility] Color (U) YELLOW YELLOW [facility] Glucose Test strip (U) [Mass/Vol] 500 mg/dl Abnormal NEGATIVE [facility] Hemoglobin Ql (U) MODERATE Abnormal NEGATIVE [facility] Ketones (U) [Mass/Vol] 15 mg/dL Abnormal NEGATIVE [facility] Leukocyte esterase Test strip Ql (U) Negative NEGATIVE [facility] Nitrite Ql (U) Negative NEGATIVE [facility] pH (U) 5.5 [pH] 5.0 - 7.0 [facility] Protein Ql (U) >300 Abnormal NEGATIVE mg/dl [facility] Specific gravity (U) [Rel density] >1.030 High 1.010 - 1.025 [facility] Urobilinogen (U) [Mass/Vol] 0.2 mg/dL [facility] URINE CULTUREon 09-21-2023 Bacteria identified Cx Nom (U) SPECIMEN DESCRIPTION URINE - OTHER CULTURE NO GROWTH 2 DAYS * Result Note: Testing performed at [place], [place] [address] * REPORT STATUS 09/23/2023 * Result Note: FINAL * Normal [facility] Comment on above: Performed By: #### A URNC #### Testing performed at [facility] [address] [place] [address] Testing performed at [facility] [address] [place] [address] URINE MACROSCOPICon 09-21-20 23 Bilirubin Ql (U) Negative Normal NEGATIVE [facility] Clarity (U) CLEAR Normal CLEAR [facility] Color (U) YELLOW Normal YELLOW [facility] Glucose Ql (U) 500 mg/dl Abnormal NEGATIVE [facility] pH (U) 5.5 [pH] Normal 5.0-7.0 [facility] URINE HEMOGLOBIN MODERATE Abnormal NEGATIVE [facility] URINE KETONE 15 mg/dl Abnormal NEGATIVE [facility] URINE LEUKOTEST Negative Normal NEGATIVE [facility] URINE NITRATES Negative Normal NEGATIVE [facility] URINE SPEC GRAVITY >1.030 High 1.010-1.025 [facility] URINE TOTAL PROTEIN >300 Abnormal NEGATIVE [facility] Urobilinogen Qn (U) 0.2 {Rachana'U}/dL Normal 0.2-1.0 [facility] URINE MICROSCOPICon 09-21-20 23 BACTERIA TRACE Abnormal NEGATIVE [facility] CASTS NONE Normal NONE [facility] CRYSTAL NONE Normal NONE [facility] Epithelial cells LM Ql (Urine sed) NONE Normal [facility] Mucus Ql (Urine sed) Negative Normal NEGATIVE [facility] URINE COMMENT REFLEX CULTURE PER ESTABLISHED CRITERIA. Normal [facility] URINE RBC'S 1 TO 5 Normal NEGATIVE [facility] URINE WBC'S Negative Normal NEGATIVE [facility] Bacteria LM.HPF (Urine sed) [#/Area] TRACE Abnormal NEGATIVE [facility] Casts LM.LPF (Urine sed) [#/Area] NONE NONE /LPF [facility] Crystals LM Nom (Urine sed) NONE NONE [facility] Epithelial cells LM Ql (Urine sed) NONE /HPF [facility] Mucus Ql (Urine sed) Negative NEGATIVE [facility] RBC LM.HPF (Urine sed) [#/Area] 1 TO 5 NEGATIVE /HPF [facility] Urine sediment comments LM Everardo (Urine sed) REFLEX CULTURE PER ESTABLISHED CRITERIA. [facility] WBC LM.HPF (Urine sed) [#/Area] Negative NEGATIVE /HPF [facility] VENTILATOR SETTINGSon 2022 F RATE 16 breaths/minute Normal [facility] fiO2 100 % Normal [facility] PEEP 5 cmH2O Normal [facility] VENT SETTING ACVC Normal [facility] VT 500 cc Normal [facility] BIPAP AndOr CPAP [facility]sp[facility] setting [Volume Fraction] Ventilator 100 % [facility] Positive end expiratory pressure setting Ventilator 5 cmH2O [facility] Respiratory rate 16 /min breaths/min liz [facility] Tidal volume setting Ventilator 500 cc [facility] XR CHEST AP PORTABLEon 09-21 XR CHEST AP PORTABLE EXAM: XR CHEST AP PORTABLE REASON FOR EXAM: ET placement TECHNIQUE: Single frontal view COMPARISON: None FINDINGS: Endotracheal tube terminates 3.4 cm above the ravindra. No pneumothorax, pleural effusion, or focal consolidation. The cardiac silhouette is not enlarged. IMPRESSION: Appropriate positioning of the endotracheal tube. No acute cardiopulmonary abnormality. Normal [facility] Diabetic Office/Clinic Noteo n 05-13-2023 Diabetic Office/Clinic Note History of P resent Illness 47-year-old male here for follow-up for DM 2. Patient was diagnosed in 2014 with type 2 diabetes. Last visit 02/11/2023 at which time treatment was adjusted by adding Ozempic and replacing Levemir with Toujeo. Since our last visit patient reports he received Dexcom and has been utilizing test blood sugar readings. Over the last 30 days his average glucose is 344 with patient in target range only 2% of the time and above goal is 98% of the time. Patient denies current complaints chest pain, shortness of breath, vision changes, headaches Tolerating current treatment well with no side effects Diet: generalized diet, denies sugared drinks Exercise: limited, no regular routine Dilated eye exam: 2021 Retinopathy: No Diabetic kidney disease: No Podiatry visit: No Neuropathy: Yes no meds Brought glucometer to visit: Yes Dexcom checking several times per day Hypoglycemic episodes: no Hyperglycemic episodes: yes Current treatment: Ozempic 0.5mg weekly Breakfast: Toujeo 50u + NovoLog Food Dosing Lunch: NovoLog Food Dosing Dinner: Toujeo 50u + NovoLog Food Dosing Bedtime: NovoLog Food Dosing Blood sugar <120 8u Blood Sugar >120 12u Recent labs: A1c >14 (05/13/2023) >14 (02/11/2023) 11.7 (01/26/2022) Weight (kg): 83.2 (05/13/2023) 88.8 (02/11/2023) BMI: 26.3 (05/13/2023) 28 (01/22/2023) 12/27/2022 TSH 0.848 Creatinine 0.95 GFR readings and 60 ALT 27, AST 21 Physical Exam Vitals & Measurements T: 36.8 ?C (Temporal Artery) HR: 95 (Peripheral) RR: 18 BP: 150/86 SpO2: 99 HT: 178 cm WT: 83.2 kg WT: 83.2 kg (Dosing) BMI: 26.26 No PE Additional Vitals BP Position/Location: Sitting, Left arm Assessment/Plan Assessment: DM2: Long discussion with patient in regards to the importance of consistent medication dosing as well as monitoring of blood sugar readings. Reviewed complications that are associated with uncontrolled diabetes long-term and patient expresses understanding. Encourage patient to consistently dose medications and stop by the office biweekly to have blood sugars evaluated and determine need for medication adjustment. Follow-up with myself in 3 months or sooner as needed Plan: See PI Discussed goals of treatment Accomplishing these goals will decrease risk of new or advancing DM complications to include blindness, kidney failure, heart attack, stroke, and limb amputation Your goals: Fasting and pre-meal blood sugars 80-130 1-2 hour after meal, bedtime and overnight blood sugars <180 Hemoglobin A1c <7% without frequent low blood sugars 5-10% weight loss if BMI >25 Blood pressure <140/90 LDL cholesterol <100 Avoid diabetic complications to eyes, nerves, heart, kidneys, blood vessels and extremities -To lower BS and A1c: Ozempic 0.5mg weekly Breakfast: Toujeo 50u + NovoLog Food Dosing Lunch: NovoLog Food Dosing Dinner: Toujeo 50u + NovoLog Food Dosing Bedtime: NovoLog Food Dosing Blood sugar <120 8u Blood Sugar >120 12u -Check blood sugars 4 times per day (before breakfast, lunch, dinner, and at bedtime) if possible. -Check blood sugar if you think you could be severely low <60-70 and treat low blood sugar using rule of 15's. Eat 15 g carbs (3 glucose tabs or 4 ounces of fruit juice or regular soda, or 6-7 hard candies, or 1 tablespoon or sugar). If blood sugar remains <80 after eating 15 g of carbs and waiting 15 minutes may repeat rule of 15's. -Continue to eat 5804-4968 calories per day. Best to consume calories divided into 3 meals per day. Avoid all sugared pop and other sweet drinks. Eat less sweet, white, and fast foods. -Continue to exercise as frequently as possible. Recommend at least 10,000 steps per day. When possible engage in moderate to intense aerobic activity with goals of increasing HR. -Record blood sugar readings and call these to [phone] in 2 weeks for myself to review. Call sooner if you're experiencing frequent blood sugars <60 or >350. -Repeat A1c and appointment with myself in 3 months or sooner if needed Jarod Aviles CNP [facility] [address], [facility] [place] [address] Time Spent with the Patient I have personally spent 35 minutes on this date, directly related to today's patient visit, including pre and post visit work, for this date of service. Time listed does not include time spent on separately billable services. Problem List/Past Medical History Ongoing Type 1 diabetes mellitus Historical No qualifying data Medications NovoLOG FlexPen 100 units/mL injectable solution, See Instructions, 11 refills Ozempic 2 mg/3 mL (0.25 mg or 0.5 mg dose) subcutaneous solution, 0.5 mg, Subcutaneous, Weekly, 11 refills Pen [place], See Instructions, 11 refills Toujeo Max SoloStar 300 units/mL subcutaneous solution, See Instructions, 11 refills Allergies No Known Medication Allergies Social History Alcohol Never Tobacco N (more content not included)... Normal [facility] Diabetic Office/Clinic Noteo n 02-11-2023 Diabetic Office/Clinic Note Chief Compla int Patient is establishing with Jarod Aviles for care of diabetes History of Present Illness PCP ? Dr. Paulina Winters This is a 47-year-old male that presents to the office to establish care for DM 2. This is my first encounter with this patient. Pt was diagnosed in 2014 with type 2 diabetes. Initially treated with Januvia and metformin and had tolerability issues of these medications. Has been utilizing only insulin for quite some time for diabetes management. Currently utilizing combination of Levemir + NovoLog for his diabetic control. Testing blood sugar readings with Dexcom several times per day and over the last 30 days his average glucose is 309 with glucose management indicator of 10.7. Patient is in target range 15% of the time with majority of other blood sugar readings above goal and minimal episodes of hypoglycemia. A1c at today's visit >14. Patient denies issues getting his medicines but does admit that he can be forgetful with dosing at times. Denies current complaints chest pain, shortness of breath, vision changes, headaches. Complications No retinopathy/blindn ess. Last dilated eye exam 2021 No kidney disease (GFR <60 or urine MA >30) Mild symptomatic peripheral neuropathy no medications No symptomatic autonomic neuropathy (gastroparesis, bladder dysfunction, orthostatic hypotension) No symptomatic VD or amputations. Right leg wound which has healed. No longer needs wound care Yes HTN, taking lisinopril No CAD, [place], CVA, CHF or PVD Statin indicated, taking simvastatin 20 mg ASA 75-162 mg indicated, taking 81 mg daily Non smoker Not prone to yeast, urine, bladder or kidney infections No history of medullary thyroid cancer, multiple endocrine neoplasia type II, pancreatitis, severe hypertriglyceridem ia, gallstones or excessive alcohol use Current Treatment: Breakfast: Levemir 40u + NovoLog Food Dosing Lunch: NovoLog Food Dosing Dinner: NovoLog Food Dosing Bedtime: Levemir 40u + NovoLog Food Dosing Blood sugar <120 10u Blood Sugar >120 15u Diet generalized diet, occasional sugared drinks Exercise limited, no regular routine Brought Glucometer to visit: Yes Dexcom G6 checking 4x/day See nurse intake Hypoglycemic Episodes Rare Hyperglycemic Episodes Yes Recent labs (date): A1c >14 (02/11/2023) 11.7 (01/26/2022) Weight (kg): 88.8 (02/11/2023) BMI: 28 (01/22/2023) 12/27/2022 TSH 0.848 Creatinine 0.95 GFR readings and 60 ALT 27, AST 21 Physical Exam Vitals & Measurements T: 36.7 ?C (Temporal Artery) HR: 87 (Peripheral) BP: 150/86 HT: 178 cm WT: 88.8 kg WT: 88.8 kg (Dosing) BMI: 28.03 No PE Additional Vitals No qualifying data available. Assessment/Plan Assessment DM 2: Extensively reviewed pathophysiology of diabetes and how medications work. Stressed the importance of proper dietary choices, checking blood sugars and compliance with diabetes regimen. Advised patient to check blood sugars 5-6x/day and bring glucometer to next visit. Please call office with blood sugars in one week for review. Adjustment to diabetic regimen as below. Complete fasting labs in the next week and call the office so we can request result Plan Discussed goals of treatment Accomplishing these goals will decrease risk for new or advancing DM complications to include blindness, kidney failure, heart attack, stroke and limb amputation -Eat 4720-2157 calories per day or less using a structured meal plan. Best to eat 3 meals per day each containing 500-600 calories and 40-60 gms carbohydrates. Avoid all sugared pop and other sweet drinks. Eat less sweet, white, and fast foods. Avoid snacking between meals, after dinner, or bedtime unless these calories are accounted for or snacks are needed to treat low blood sugars. Eat smaller portions and consider using 9?? portion plate with ? plate for green leafy vegetables, ? plate lean meat, and ? plate starchy vegetables or grains. Recommend using Playspace or similar type marian to track daily calories and activity. -Exercise as frequently as possible. Recommend at least 10,000 steps per day using pedometer, fitbit, or similar device to track steps. When possible engage in moderate-intense aerobic activity to achieve increased heart rate for 3 hrs per week spread over >3 days with no more than 2 consecutive days without exercise. -For lowering BS and A1c: STOP Levemir Ozempic 0.25mg weekly x 4 weeks increase to 0.5mg weekly Breakfast: Toujeo 80u + NovoLog Food Dosing Lunch: NovoLog Food Dosing Dinner: NovoLog Food Dosing Bedtime: NovoLog Food Dosing Blood sugar <120 8u Blood Sugar >120 12u -Check blood sugars (BS) 4x per day (before breakfast, lunch, dinner, and at bedtime) if possible. -Check BS if you think you could be severely low (<60-70) and treat low BS using rule of 15 = eat 15 gms carbs (3 glucose tabs or 4oz of fruit juice or regular soda or 6-7 hard candies or 1 tablespoon sugar), repeat BS in 15 mins to be sure it has reached a safe range > (more content not included)... Normal [facility] CBC AUTO DIFFon 12-28-2022 BASO # 0.0 103/ul Normal 0.0-0.1 [facility] Comment on above: Performed By: #### P OCGLUC #### [facility] [address] [place] [address] Dr. Karina Heath Basophils/100 WBC (Bld) 0.6 % Normal 0.2-2.0 [facility] Comment on above: Performed By: #### P OCGLUC #### [facility] [address] [address] [address] Karina Heath EO # 0.1 103/ul Normal 0.0-0.7 [facility] Comment on above: Performed By: #### P OCGLUC #### [facility] [address] [place] [address] Dr. Karina Heath Eosinophils/100 WBC (Bld) 1.1 % Normal 0.9-7.0 [facility] Comment on above: Performed By: #### P OCGLUC #### [facility] [address] [address] [address] Karina Heath Erythrocyte distribution width (RBC) [Ratio] 13.5 % Normal 11.0-15.0 [facility] Comment on above: Performed By: #### P OCGLUC #### [facility] [address] [place] [address] Dr. Karina Heath Hematocrit (Bld) [Volume fraction] 35.2 % Critically low 42.0-54.0 [facility] Comment on above: Performed By: #### P OCGLUC #### [facility] [address] [place] [address] Dr. Karina Heath Hemoglobin (Bld) [Mass/Vol] 12.0 g/dL Critically low 14.0 -18.0 [facility] Comment on above: Performed By: #### P OCGLUC #### [facility] [address] [place] [address] Dr. Karina Heath IG # 0.02 10e3/ul Normal 0.00-0.03 [facility] Comment on above: Performed By: #### P OCGLUC #### [facility] [address] [place] [address] Dr. Karina Heath IG % 0.3 % Normal 0.0-0.5 [facility] Comment on above: Performed By: #### P OCGLUC #### [facility] [address] [place] [address] Dr. Karina Heath LYMPH # 1.7 103/ul Normal 1.2-3.8 [facility] Comment on above: Performed By: #### P OCGLUC #### [facility] [address] [place] [address] Dr. Karina Heath Lymphocytes/100 WBC (Bld) 26.3 % Normal 20.5-60.0 [facility] Comment on above: Performed By: #### P OCGLUC #### [facility] [address] [place] [address] Dr. Karina Heath MANUAL DIFF REQ NO Normal [facility] Comment on above: Performed By: #### P OCGLUC #### [facility] [address] [place] [address] Dr. Karina Heath MCH (RBC) [Entitic mass] 28.6 pg Normal 25.9-34.0 [facility] Comment on above: Performed By: #### P OCGLUC #### [facility] [address] [place] [address] Dr. Karina Heath MCHC (RBC) [Mass/Vol] 34.1 g/dL Normal 29.9-35.2 [facility] Comment on above: Performed By: #### P OCGLUC #### [facility] [address] [place] [address] Dr. Karina Heath MCV (RBC) [Entitic vol] 83.8 fL Normal 80.0-94.0 [facility] Comment on above: Performed By: #### P OCGLUC #### [facility] [address] [place] [address] Dr. Karina Heath MONO # 0.5 103/ul Normal 0.3-0.8 [facility] Comment on above: Performed By: #### P OCGLUC #### [facility] [address] [place] [address] Dr. Karina Heath Monocytes/100 WBC (Bld) 7.0 % Normal 1.7-12.0 [facility] Comment on above: Performed By: #### P OCGLUC #### [facility] [address] [place] [address] Dr. Karina Heath NEUT # 4.2 103/ul Normal 1.4-6.5 [facility] Comment on above: Performed By: #### P OCGLUC #### [facility] [address] [place] [address] Dr. Karina Heath Neutrophils/100 WBC (Bld) 64.7 % Normal 43.0-75.0 [facility] Comment on above: Performed By: #### P OCGLUC #### [facility] [address] [place] [address] Dr. Karina Heath Platelet mean volume (Bld) [Entitic vol] 10.3 fL Normal 9.5-13.5 [facility] Comment on above: Performed By: #### P OCGLUC #### [facility] [address] [place] [address] Dr. Karina Heath PLT 189 103/ul Normal 150-450 [facility] Comment on above: Performed By: #### P OCGLUC #### [facility] [address] [place] [address] Dr. Karina Heath RBC 4.20 106/ul Critically low 4.70-6.10 [facility] Comment on above: Performed By: #### P OCGLUC #### [facility] [address] [place] [address] Dr. Karina Heath WBC 6.4 103/ul Normal 4.0-11.0 [facility] Comment on above: Performed By: #### P OCGLUC #### [facility] [address] [place] [address] Dr. Karina Heath ECHOCARDIO M/2D COMPLETEon 0 12-28-2022 ECHOCARDIO M/2D COMPLETE Patient: JOSÉ LUIS ESCUDERO Exam Date: 12/28/2022 : 1975 Gender:M Ordering : DR PAULINA WINTERS . Admission #: [id number] Family : Order #: [id number] CLICK HERE TO VIEW EXAM ECHOCARDIOGRAM REPORT PROCEDURE: CARDIO PULMONARY ECHOCARDIO M/2D COMP INDICATIONS: CVA symptoms COMPARISON: None. DESCRIPTION: COMPLETE ECHOCARDIOGRAM Real-time transthoracic echocardiography with 2D, M-mode, spectral and color flow Doppler performed. QUALITY: Technical quality was good. LEFT VENTRICLE: Normal chamber size. Proximal septal hypertrophy (sigmoid septum). Normal systolic function. LV EF: Normal left ventricular ejection fraction, (>55%). DIASTOLIC: Normal diastolic function. ATRIAL SEPTUM: Visually appears intact. LEFT ATRIUM: Normal chamber size. RIGHT ATRIUM: Normal chamber size. RIGHT VENTRICLE: Normal chamber size. Normal right ventricular systolic function. TRICUSPID VALVE: Normal mobility and thickness. No stenosis with trivial regurgitation. MITRAL VALVE: Normal mobility and thickness. No evidence of mitral valve stenosis. There is no mitral annular calcification. No mitral regurgitation. AORTIC VALVE: Normal trileaflet appearance. No visible sclerosis. Normal leaflet mobility. No evidence of aortic valve stenosis. No aortic regurgitation. AORTIC ROOT: Normal diameter and appearance. PULMONIC VALVE: Normal thickness and mobility. No stenosis. Trivial regurgitation. PERICARDIUM: No evidence of pericardial effusion. IVC: Collapses with inspirations. PLEURA: CONCLUSION: 1. Normal ventricular function. LVEF is 65%. 2. No significant valvular dysfunction. 3. No pericardial effusion. 4. Agitated saline injections were not performed during this study. Adult Echocardiography Procedure Report Left Ventricle LVEDD (3.7 - 5.6 cm): 3.89 cm LVESD (2.2 - 4.0 cm): 2.65 cm LVIVS thickness (0.6 - 1.2 cm): 1.27 cm LVPW thickness (0.5 - 1.0 cm): 1.00 cm e': 0.12 m/s E - e': 5.07 LVOT Max Gradient: 2.07 mm[Hg] Peak Velocity (LVOT): 0.72 m/s LVOT Diameter 2.41 cm Left Ventricular Ejection Fraction: 65% Left Atrium LA Volume Index (2D A2C): 43.08 ml, 43.08 ml Left Atrium Systolic Dimension: 2.12 cm Mitral Valve MV E to A Ratio: 1.11 Mitral Valve A-Wave Peak Velocity: 0.55 m/s Mitral Valve E-Wave Peak Velocity: 0.62 m/s Right Ventricle Aorta AO Root Diam: 3.86 cm Aortic Valve AoV Area (Peak Anders): 3.41 cm2, 3.41 cm2 Peak Velocity(Antegrade Flow): 0.96 m/s Peak Gradient(Antegrade Flow): 3.72 mm[Hg] Tricuspid Valve Peak Velocity: 0.40 m/s Pulmonic Valve Peak Velocity: 0.94 m/s, 1.04 m/s Peak Gradient: 3.52 mm[Hg], 4.29 mm[Hg] Right Atrium Right Atrium Systolic Pressure: 37.09 ml, 37.09 ml Dictated by: Rod Sibley M.D. on 12/28/2022 at 17:47 Approved by: Rod Sibley M.D. on 12/28/2022 at 17:50 Normal [facility] POINT OF CARE GLUCOSEon 12-15 Glucose [Mass/Vol] 229 mg/dL Critically high 74-106 [facility] Comment on above: Performed By: #### P OCGLUC #### [facility] [address] [place] [address] Dr. Karina Heath Glucose [Mass/Vol] 171 mg/dL Critically high 74-106 [facility] Comment on above: Performed By: #### C VDTBH #### [facility] [address] [place] [address] Dr. Karina Heath Glucose [Mass/Vol] 242 mg/dL Critically high -106 [facility] Comment on above: Performed By: #### C VDTBH #### [facility] [address] [place] [address] Dr. Karina Heath PROF 14(COMP METB)on 023 Albumin [Mass/Vol] 3.0 g/dL Critically low 3.4-5.0 [facility] Comment on above: Performed By: #### P OCGLUC #### [facility] [address] [place] [address] Dr. Karina Heath Albumin/Globulin [Mass ratio] 0.9 {ratio} Normal [facility] Comment on above: Performed By: #### P OCGLUC #### [facility] [address] [address] [address] Karina Heath ALP [Catalytic activity/Vol] 79 U/L Normal 46-116 [facility] Comment on above: Performed By: #### P OCGLUC #### [facility] [address] [place] [address] Dr. Karina Heath ALT [Catalytic activity/Vol] 27 U/L Normal 16-63 [facility] Comment on above: Performed By: #### P OCGLUC #### [facility] [address] [place] [address] Dr. Karina Heath Anion gap [Moles/Vol] 9.4 mmol/L Normal [facility] Comment on above: Performed By: #### P OCGLUC #### [facility] [address] [place] [address] Dr. Karina Heath AST [Catalytic activity/Vol] 21 U/L Normal 15-37 [facility] Comment on above: Performed By: #### P OCGLUC #### [facility] [address] [place] [address] Dr. Karina Heath Bilirubin [Mass/Vol] 0.2 mg/dL Normal 0.2-1.0 [facility] Comment on above: Performed By: #### P OCGLUC #### [facility] [address] [place] [address] Dr. Karina Heath Calcium [Mass/Vol] 8.6 mg/dL Normal 8.5-10.1 [facility] Comment on above: Performed By: #### P OCGLUC #### [facility] [address] [place] [address] Dr. Karina Heath Chloride [Moles/Vol] 104 mmol/L Normal 98-107 [facility] Comment on above: Performed By: #### P OCGLUC #### [facility] [address] [address] [address] Karina Heath CO2 [Moles/Vol] 26.9 mmol/L Normal 21.0-32.0 [facility] Comment on above: Performed By: #### P OCGLUC #### [facility] [address] [address] [address] Karina Heath Creatinine [Mass/Vol] 0.95 mg/dL Normal 0.70-1.30 [facility] Comment on above: Performed By: #### P OCGLUC #### [facility] [address] [address] [address] Karina Heath EGFR-AF AZERBAIJANI >60 Normal >=60 [facility] Comment on above: Performed By: #### P OCGLUC #### [facility] [address] [address] [address] Karina Heath EGFR-NON AF AZERBAIJANI >60 Normal >=60 [facility] Comment on above: Performed By: #### P OCGLUC #### [facility] [address] [address] [address] Karina Heath Globulin (S) [Mass/Vol] 3.2 g/dL Normal [facility] Comment on above: Performed By: #### P OCGLUC #### [facility] [address] [address] [address] Karina Heath Glucose [Mass/Vol] 258 mg/dL Critically high 74-106 [facility] Comment on above: Performed By: #### P OCGLUC #### [facility] [address] [address] [address] Karina Heath Potassium [Moles/Vol] 3.3 mmol/L Critically low 3.5-5.1 [facility] Comment on above: Performed By: #### P OCGLUC #### [facility] [address] [address] [address] Karina Heath Protein [Mass/Vol] 6.2 g/dL Critically low 6.4-8.2 [facility] Comment on above: Performed By: #### P OCGLUC #### [facility] [address] [place] [address] Dr. Karina Heath Sodium [Moles/Vol] 137 mmol/L Normal 136-145 [facility] Comment on above: Performed By: #### P OCGLUC #### [facility] [address] [place] [address] Dr. Karina Heath Urea nitrogen [Mass/Vol] 16.0 mg/dL Normal 7.0-18.0 [facility] Comment on above: Performed By: #### P OCGLUC #### [facility] [address] [place] [address] Dr. Karina Heath Urea nitrogen/Creatinine [Mass ratio] 16.8 mg/mg Normal [facility] Comment on above: Performed By: #### P OCGLUC #### [facility] [address] [place] [address] Dr. Karina Heath CBC AUTO DIFFon 12-27-2022 BASO # 0.0 103/ul Normal 0.0-0.1 [facility] Comment on above: Performed By: #### C BC #### [facility] [address] [place] [address] Dr. Karina Heath Basophils/100 WBC (Bld) 0.5 % Normal 0.2-2.0 [facility] Comment on above: Performed By: #### C BC #### [facility] [address] [place] [address] Dr. Karina Heath EO # 0.1 103/ul Normal 0.0-0.7 [facility] Comment on above: Performed By: #### C BC #### [facility] [address] [place] [address] Dr. Karina Heath Eosinophils/100 WBC (Bld) 0.8 % Critically low 0.9-7. 0 [facility] Comment on above: Performed By: #### C BC #### [facility] [address] [place] [address] Dr. Karina Heath Erythrocyte distribution width (RBC) [Ratio] 13.2 % Normal 11.0-15.0 [facility] Comment on above: Performed By: #### C BC #### [facility] [address] [place] [address] Dr. Karina Heath Hematocrit (Bld) [Volume fraction] 37.1 % Critically low 42.0-54.0 [facility] Comment on above: Performed By: #### C BC #### [facility] [address] [place] [address] Dr. Karina Heath Hemoglobin (Bld) [Mass/Vol] 13.0 g/dL Critically low 14.0 -18.0 [facility] Comment on above: Performed By: #### C BC #### [facility] [address] [place] [address] Dr. Karina Heath IG # 0.03 10e3/ul Normal 0.00-0.03 [facility] Comment on above: Performed By: #### C BC #### [facility] [address] [place] [address] Dr. Karina Heath IG % 0.4 % Normal 0.0-0.5 [facility] Comment on above: Performed By: #### C BC #### [facility] [address] [place] [address] Dr. Karina Heath LYMPH # 1.2 103/ul Normal 1.2-3.8 [facility] Comment on above: Performed By: #### C BC #### [facility] [address] [place] [address] Dr. Karina Heath Lymphocytes/100 WBC (Bld) 15.3 % Critically low 20.5-6 0.0 [facility] Comment on above: Performed By: #### C BC #### [facility] [address] [place] [address] Dr. Karina Heath MANUAL DIFF REQ NO Normal [facility] Comment on above: Performed By: #### C BC #### [facility] [address] [place] [address] Dr. Karina Heath MCH (RBC) [Entitic mass] 28.7 pg Normal 25.9-34.0 [facility] Comment on above: Performed By: #### C BC #### [facility] [address] [address] [address] Karina Heath MCHC (RBC) [Mass/Vol] 35.0 g/dL Normal 29.9-35.2 [facility] Comment on above: Performed By: #### C BC #### [facility] [address] [address] [address] Karina Heath MCV (RBC) [Entitic vol] 81.9 fL Normal 80.0-94.0 [facility] Comment on above: Performed By: #### C BC #### [facility] [address] [address] [address] Karina Heath MONO # 0.6 103/ul Normal 0.3-0.8 [facility] Comment on above: Performed By: #### C BC #### [facility] [address] [address] [address] Karina Heath Monocytes/100 WBC (Bld) 7.1 % Normal 1.7-12.0 [facility] Comment on above: Performed By: #### C BC #### [facility] [address] [place] [address] Dr. Karina Heath NEUT # 5.8 103/ul Normal 1.4-6.5 [facility] Comment on above: Performed By: #### C BC #### [facility] [address] [address] [address] Karina Heath Neutrophils/100 WBC (Bld) 75.9 % Critically high 43.0- 75.0 [facility] Comment on above: Performed By: #### C BC #### [facility] [address] [address] [address] Karina Heath Platelet mean volume (Bld) [Entitic vol] 9.6 fL Normal 9.5-13.5 [facility] Comment on above: Performed By: #### C BC #### [facility] [address] [address] [address] Karina Heath PLT 200 103/ul Normal 150-450 [facility] Comment on above: Performed By: #### C BC #### [facility] [address] [place], [place] [address] Dr. Karina Heath RBC 4.53 106/ul Critically low 4.70-6.10 [facility] Comment on above: Performed By: #### C BC #### [facility] [address] [place], [place] [address] Dr. Karina Heath WBC 7.7 103/ul Normal 4.0-11.0 [facility] Comment on above: Performed By: #### C BC #### [facility] [address] [place], [place] [address] STROKE HEAD WOon 12-28-[address] STROKE HEAD WO EXAMINATION: CT STROKE HEAD WO HISTORY: Aphasia . Confusion. Difficulty speaking. Frontal headache. Right hand weakness. COMPARISON: 03/16/2016. TECHNIQUE: CT examination of the head without IV contrast. Dose reduction techniques were achieved by using automated exposure control and/or adjustment of mA and/or kV according to patient size and/or use of iterative reconstruction technique. FINDINGS: No midline shift, mass effect or intracranial hemorrhage are identified. Mucocele versus retention cyst right sphenoid sinus. Mild mucosal thickening within the right sphenoid sinus. The mastoid air cells are clear. IMPRESSION: No acute intracranial process is identified. Electronically authenticated by: ANNI NOYOLA Date: 2022-12-27 14:03 Normal [facility] CTA HEAD WO W CONon 12-28-19 23 CTA HEAD WO W CON EXAMINATION: CTA HEAD WO W CON, CTA NECK WO W CON HISTORY: Aphasia COMPARISON: Noncontrast CT head from the same day TECHNIQUE: Axial CT images were obtained of the head and neck in the arterial phase. Multiplanar reconstructions were performed. MIP reformatted images were performed. Carotid stenosis is reported according to NASCET criteria. CTA HEAD FINDINGS: Internal carotid arteries: No acute thrombosis or dissection. Vertebrobasilar arteries: No acute thrombosis or dissection. Intracranial arteries: No acute thrombosis, dissection, aneurysm or vascular malformation Venous sinuses: Unremarkable. Brain: Unremarkable. Sinuses: There is mucosal thickening present in the sphenoid sinus with a focus of inspissated secretion with coarse calcification. CTA NECK FINDINGS: Aorta and proximal great vessels: No acute thrombosis or dissection. Common carotid arteries: No acute thrombosis or dissection. The proximal common carotid arteries are poorly visualized due to streak artifact from venous contrast. Internal carotid arteries: No acute thrombosis or dissection. Mild atherosclerotic calcifications are present at the carotid bulbs bilaterally. Vertebral arteries: No acute thrombosis or dissection. The proximal vertebral arteries are poorly visualized due to streak artifact from intravenous contrast in the paraspinal veins. Venous structures: Unremarkable. Bones: There are mild multilevel degenerative changes present in the cervical spine. Soft tissues: Unremarkable. IMPRESSION: 1. No acute vascular abnormality of the head and neck. Electronically authenticated by: JACOB ALICIA Date: 2022-12-27 14:55 Normal [facility] Covid-19 PCR (CVDTBH)on 12-15 SARS-CoV-2 (COVID-19) RNA MEETA+probe Ql (Unsp spec) Not detected Normal NOT DETECTED [facility] Comment on above: Result Comment: When diagnostic testing is negative, the possibility of a false negative should be considered in the context of a patient's recent exposures and the presence of clinical signs and symptoms consistent with SARS-CoV-2. This test is not yet approved or cleared by the [place] FDA. When there are no FDA-approved or cleared tests available, and other criteria are met, FDA can make tests available under an emergency access mechanism called an Emergency Use Authorization (EUA). The EUA for this test is supported by the Rating Specialist of Health and Human Service's declaration that circumstances exist to justify the emergency use of in vitro diagnostics for the detection and/or diagnosis of the virus that causes COVID-19. This EUA will remain in effect for the duration of the COVID-19 declaration justifying emergency of IVDs, unless it is terminated or revoked by the FDA (after which the test may no longer be used). Performed By: #### C VDTBH #### [facility] [address] [place], [place] [address] Dr. Karina Heath DRUG SCREEN RAPID (URINE)on 12-27-2022 AMP Negative Normal NEGATIVE [facility] Comment on above: Performed By: #### C BC #### [facility] [address] [place], [place] [address] Dr. Karina Heath BAR Negative Normal NEGATIVE [facility] Comment on above: Performed By: #### C BC #### [facility] [address] [place] [address] Dr. Karina Heath BUP Negative Normal NEGATIVE [facility] Comment on above: Performed By: #### C BC #### [facility] [address] [place] [address] Dr. Karina Heath BZO Negative Normal NEGATIVE [facility] Comment on above: Performed By: #### C BC #### [facility] [address] [place] [address] Dr. Karina Heath VALERY Negative Normal NEGATIVE [facility] Comment on above: Performed By: #### C BC #### [facility] [address] [place] [address] Dr. Karina Heath CUT-OFFS SEE BELOW Normal [facility] Comment on above: Result Comment: AMP (Amphetamine): 500ng/mL, BAR (Barbituates): 200 ng/mL, BZO (Benzodiazepines): 150 ng/mL, BUP (Buprenorphine): 10 ng/mL, VALERY (Cocaine): 150 ng/mL, mAMP (Methamphetamine): 500 ng/mL, MTD (Methadone): 200 ng/mL, OPI (Opiates): 100 ng/mL, OXY (Oxycodone): 100 ng/mL, PCP (Phencyclidine): 25 ng/mL, PPX (Propoxyphene): 300 ng/mL, THC (Cannabinoids): 50 ng/mL, TCA (Trycyclic Antidepressants): 300 ng/mL Performed By: #### C BC #### [facility] [address] [place] [address] Dr. Karina Heath DRUG CUT HEADER DRUG CLASS TEST SYSTEM CUT-OFF CONCENTRATIONS ARE FOLLOWS: Normal [facility] Comment on above: Performed By: #### C BC #### [facility] [address] [place] [address] Dr. Karina Heath mAMP Negative Normal NEGATIVE [facility] Comment on above: Performed By: #### C BC #### [facility] [address] [place] [address] Dr. Karina Heath MTD Negative Normal NEGATIVE [facility] Comment on above: Performed By: #### C BC #### [facility] [address] [place] [address] Dr. Karina Heath OPI Negative Normal NEGATIVE [facility] Comment on above: Performed By: #### C BC #### [facility] [address] [place] [address] Dr. Karina Heath OXY Negative Normal NEGATIVE [facility] Comment on above: Performed By: #### C BC #### [facility] [address] [place] [address] Dr. Karina Heath PCP Negative Normal NEGATIVE [facility] Comment on above: Performed By: #### C BC #### [facility] [address] [place] [address] Dr. Karina Heath PPX Negative Normal NEGATIVE [facility] Comment on above: Performed By: #### C BC #### [facility] [address] [place] [address] Dr. Karina Heath TCA Negative Normal NEGATIVE [facility] Comment on above: Performed By: #### C BC #### [facility] [address] [place] [address] Dr. Karina Heath THC Negative Normal NEGATIVE [facility] Comment on above: Performed By: #### C BC #### [facility] [address] [place] [address] Dr. Karina Heath ER URINE PROFILEon 3 Bilirubin Ql (U) Negative Normal NEGATIVE [facility] Comment on above: Performed By: #### P OCGLUC #### [facility] [address] [place] [address] Dr. Karina Heath Clarity (U) CLEAR Normal CLEAR [facility] Comment on above: Performed By: #### P OCGLUC #### [facility] [address] [place] [address] Dr. Karina Heath Color (U) LT. YELLOW Normal YELLOW [facility] Comment on above: Performed By: #### P OCGLUC #### [facility] [address] [place] [address] Dr. Karina Heath ERUAHD A micrscopic examination will be performed if indicated. Normal [facility] Comment on above: Performed By: #### P OCGLUC #### [facility] [address] [place] [address] [address] Karina Heath Glucose Ql (U) >1000 Abnormal NEGATIVE [facility] Comment on above: Performed By: #### P OCGLUC #### [facility] [address] [place] [address] [address] Karina Heath Hemoglobin Ql (U) TRACE-INTACT Abnormal NEGATIVE [facility] Comment on above: Performed By: #### P OCGLUC #### [facility] [address] [place] [address] [address] Karina Heath Ketones Ql (U) TRACE Abnormal NEGATIVE [facility] Comment on above: Performed By: #### P OCGLUC #### [facility] [address] [place] [address] Dr. Karina Heath LEUKOCYTES Negative Normal NEGATIVE [facility] Comment on above: Performed By: #### P OCGLUC #### [facility] [address] [place] [address] [address] Karina Heath Nitrite Ql (U) Negative Normal NEGATIVE [facility] Comment on above: Performed By: #### P OCGLUC #### [facility] [address] [place] [address] Dr. Karina Heath pH (U) 7.0 [pH] Normal 5-9 [facility] Comment on above: Performed By: #### P OCGLUC #### [facility] [address] [place] [address] Dr. Karina Heath Protein (U) [Mass/Vol] 100 mg/dL Abnormal NEGAT RAJAN/ TRACE [facility] Comment on above: Performed By: #### P OCGLUC #### [facility] [address] [place] [address] Dr. Karina Heath SPEC GRAVITY 1.010 Normal 1.005-<=1.0 25 [facility] Comment on above: Performed By: #### P OCGLUC #### [facility] [address] [place] [address] Dr. Karina Heath UR MICRO IND INDICATED Normal [facility] Comment on above: Performed By: #### P OCGLUC #### [facility] [address] [place] [address] Dr. Karina Heath Urobilinogen Qn (U) 0.2 {Rachana'U}/dL Normal 0.2 - 1. 0 [facility] Comment on above: Performed By: #### P OCGLUC #### [facility] [address] [place] [address] Dr. Karina Heath POINT OF CARE GLUCOSEon 12-15 Glucose [Mass/Vol] 233 mg/dL Critically high 74-106 [facility] Comment on above: Performed By: #### P OCGLUC #### [facility] [address] [place] [address] Dr. Karina Heath Glucose [Mass/Vol] 199 mg/dL Critically high 74-106 [facility] Comment on above: Performed By: #### P OCGLUC #### [facility] [address] [place] [address] Dr. Karina Heath PROF 14(COMP METB)on 023 Albumin [Mass/Vol] 3.4 g/dL Normal 3.4-5.0 [facility] Comment on above: Performed By: #### P OCGLUC #### [facility] [address] [place] [address] Dr. Karina Heath Albumin/Globulin [Mass ratio] 1.0 {ratio} Normal [facility] Comment on above: Performed By: #### P OCGLUC #### [facility] [address] [place] [address] Dr. Karina Heath ALP [Catalytic activity/Vol] 100 U/L Normal 46-116 [facility] Comment on above: Performed By: #### P OCGLUC #### [facility] [address] [place] [address] Dr. Karina Heath ALT [Catalytic activity/Vol] 31 U/L Normal 16-63 [facility] Comment on above: Performed By: #### P OCGLUC #### [facility] [address] [place] [address] Dr. Karina Heath Anion gap [Moles/Vol] 10.5 mmol/L Normal Th [facility] Comment on above: Performed By: #### P OCGLUC #### [facility] [address] [place] [address] [address] Karina Heath AST [Catalytic activity/Vol] 18 U/L Normal 15-37 [facility] Comment on above: Performed By: #### P OCGLUC #### [facility] [address] [place] [address] [address] Karina Heath Bilirubin [Mass/Vol] 0.2 mg/dL Normal 0.2-1.0 [facility] Comment on above: Performed By: #### P OCGLUC #### [facility] [address] [place] [address] [address] Karina Heath Calcium [Mass/Vol] 9.0 mg/dL Normal 8.5-10.1 [facility] Comment on above: Performed By: #### P OCGLUC #### [facility] [address] [place] [address] [address] Karina Heath Chloride [Moles/Vol] 96 mmol/L Critically low 98-107 [facility] Comment on above: Performed By: #### P OCGLUC #### [facility] [address] [place] [address] [address] Karina Heath CO2 [Moles/Vol] 29.1 mmol/L Normal 21.0-32.0 [facility] Comment on above: Performed By: #### P OCGLUC #### [facility] [address] [place] [address] [address] Karina Heath Creatinine [Mass/Vol] 0.91 mg/dL Normal 0.70-1.30 [facility] Comment on above: Performed By: #### P OCGLUC #### [facility] [address] [place] [address] [address] Karina Heath EGFR-AF AZERBAIJANI >60 Normal >=60 [facility] Comment on above: Performed By: #### P OCGLUC #### [facility] [address] [place] [address] [address] Karina Heath EGFR-NON AF AZERBAIJANI >60 Normal >=60 [facility] Comment on above: Performed By: #### P OCGLUC #### [facility] [address] [place] [address] [address] Karina Heath Globulin (S) [Mass/Vol] 3.5 g/dL Normal [facility] Comment on above: Performed By: #### P OCGLUC #### [facility] [address] [place] [address] [address] Karina Heath Glucose [Mass/Vol] 214 mg/dL Critically high 74-106 [facility] Comment on above: Performed By: #### P OCGLUC #### [facility] [address] [place] [address] [address] Karina Heath Potassium [Moles/Vol] 3.6 mmol/L Normal 3.5-5.1 [facility] Comment on above: Performed By: #### P OCGLUC #### [facility] [address] [place] [address] [address] Karina Heath Protein [Mass/Vol] 6.9 g/dL Normal 6.4-8.2 [facility] Comment on above: Performed By: #### P OCGLUC #### [facility] [address] [place] [address] [address] Karina Hetah Sodium [Moles/Vol] 132 mmol/L Critically low 136-145 [facility] Comment on above: Performed By: #### P OCGLUC #### [facility] [address] [place] [address] [address] Karina Heath Urea nitrogen [Mass/Vol] 27.0 mg/dL Critically high 7.0-18 .0 [facility] Comment on above: Performed By: #### P OCGLUC #### [facility] [address] [place] [address] [address] Karina Heath Urea nitrogen/Creatinine [Mass ratio] 29.7 mg/mg Normal [facility] Comment on above: Performed By: #### P OCGLUC #### [facility] [address] [place] [address] [address] Karina Heath PROTIMEon 12-27-2022 INR Coag (PPP) [Relative time] {INR} Normal [facility] Comment on above: Performed By: #### P TT, PT #### [facility] [address] [place] [address] Dr. Karina Heath INR GUIDELINES SEE BELOW Normal [facility] Comment on above: Result Comment: LINDA RED INR: 2.0 - 3.0 CONDITIONS NOT LISTED BELOW 2.5 - 3.5 FOR PROSTHETIC HEART VALVE REPLACEMENT 2.5 - 3.5 RECURRENT THROMBOSIS Performed By: #### P TT, PT #### [facility] [address] [place] [address] Dr. Karina Heath PT Coag (PPP) [Time] 9.8 s Normal 9.0-11.6 [facility] Comment on above: Performed By: #### P TT, PT #### [facility] [address] [place] [address] Dr. Karina Heath PTTon 12-27-2022 aPTT Coag (Bld) [Time] 24.3 s Normal 22.3-36.2 [facility] Comment on above: Performed By: #### P TT, PT #### [facility] [address] [place] [address] Dr. Karina Heath TROPONIN, HIGH SENSITIVITYon 12-27-2022 HSTROP 5.5 pg/mL Normal 4.0-76.1 [facility] Comment on above: Result Comment: CUT- OFF POINTS HAVE BEEN ESTABLISHED BASED ON THE FOURTH UNIVERSAL DEFINITIONS OF MYOCARDIAL INFARCTION. THE UPPER REFERENCE LIMIT (URL) OF TROPONIN, DEFINED THE 99TH PERCENTILE OF cTnI DISTRIBUTION IN A REFERENCE POPULATION, HAS BEEN CONFIRMED THE DECISION THRESHOLD FOR [place] DIAGNOSIS. Performed By: #### P OCGLUC #### [facility] [address] [place] [address] Dr. Karina Heath TSHon 12-27-2022 TSH 0.848 uIU/mL Normal 0.358-3.740 [facility] Comment on above: Performed By: #### P OCGLUC #### [facility] [address] [place] [address] Dr. Karina Heath URINE MICROSCOPIC ONLYon BACTERIA NONE SEEN Normal NONE SEEN [facility] Comment on above: Performed By: #### P OCGLUC #### [facility] [address] [place] [address] Dr. Karina eHath Bacteria identified Cx Nom (U) NOT INDICATED Normal [facility] Comment on above: Performed By: #### P OCGLUC #### [facility] [address] [place] [address] [address] Karina Heath CAST NONE SEEN Normal NONE SEEN [facility] Comment on above: Performed By: #### P OCGLUC #### [facility] [address] [place] [address] Dr. Karina Heath Crystals LM Nom (Urine sed) NONE SEEN Normal NONE SEE N [facility] Comment on above: Performed By: #### P OCGLUC #### [facility] [address] [place] [address] Dr. Karina Heath Epithelial cells LM Ql (Urine sed) NONE SEEN Normal NONE SEEN /RARE [facility] Comment on above: Performed By: #### P OCGLUC #### [facility] [address] [place] [address] Dr. Karina Heath MUCOUS NONE SEEN Normal NONE SEEN [facility] Comment on above: Performed By: #### P OCGLUC #### [facility] [address] [place] [address] Dr. Karina Heath RBC 0-2 Normal 0-2 [facility] Comment on above: Performed By: #### P OCGLUC #### [facility] [address] [place] [address] Dr. Karina Heath WBC NONE SEEN Normal NONE SEEN [facility] Comment on above: Performed By: #### P OCGLUC #### [facility] [address] [place] [address] Dr. Karina Heath XR CHEST 1 Von 12-27-2022 XR CHEST 1 V EXAM: XR CHEST 1 V HISTORY: Aphasia COMPARISON: None. TECHNIQUE: AP upright portable. FINDINGS: Cardiomediastinal silhouette and pulmonary vascularity are within normal limits. Lungs and the costophrenic angles are clear. IMPRESSION: No acute cardiopulmonary disease. Electronically authenticated by: ANNI NOYOLA Date: 2022-12-27 14:03 Normal [facility] ACID FAST SMEAR AND CXon Acid Fast Culture Negative Normal [facility] Comment on above: Result Comment: No a martin fast bacilli isolated after 6 weeks. Performed By: #### A FB #### [facility] [address] [place] [address] [address] Karina Heath Acid Fast Smear Negative Normal [facility] Comment on above: Performed By: #### A FB #### [facility] [address] [place] [address] [address] Karina Heath AFB Specimen Processing Direct Inoculation [facility] Comment on above: Performed By: #### A FB #### [facility] [address] [place] [address] [address] Karina Heath FUNGAL CULTUREon 11-12-2022 Fungus (Mycology) Culture Final report [facility] Comment on above: Performed By: #### C BC #### [facility] [address] [place] [address] Dr. Karnia Heath Fungus Stain Final report [facility] Comment on above: Performed By: #### C BC #### [facility] [address] [place] [address] [address] Karina Heath Result 1 Comment Normal [facility] Comment on above: Result Comment: MYNOR/ Calcofluor preparation: no fungus observed. Performed By: #### C BC #### [facility] [address] [place] [address] Dr. Karina Heath Result Comment: No y east or mold isolated after 4 weeks. CULTURE OTHERon 10-16-2022 CULTURE OTHER Isolate 1 Staphylococcus aureus Moderate growth of ORGANISM 1 Staphylococcus aureus ANTIBIOTIC M.I.C RX STATUS Beta-Lactamase Pos POS F Cefoxitin Screen Neg NEG F Benzylpenicillin >=0.5 R F Oxacillin <=0.25 S F Gentamicin <=0.5 S F Ciprofloxacin <=0.5 S F Levofloxacin <=0.12 S F Moxifloxacin <=0.25 S F Inducible Clindamycin Resistance Neg NEG F Erythromycin <=0.25 S F Clindamycin <=0.25 S F Quinupristin/Dalfo pristin <=0.25 S F Linezolid 1 S F Vancomycin <=0.5 S F Tetracycline <=1 S F Rifampicin <=0.5 S F Trimethoprim/Sulfa methoxazole <=10 S F Normal [facility] Comment on above: Performed By: #### P OCGLUC #### [facility] [address] [place] [address] Dr. Karina Heath CBC AUTO DIFFon 10-15-2022 BASO # 0.0 103/ul Normal 0.0-0.1 [facility] Comment on above: Performed By: #### C BC #### [facility] [address] [place] [address] Dr. Karina Heath Basophils/100 WBC (Bld) 0.5 % Normal 0.2-2.0 [facility] Comment on above: Performed By: #### C BC #### [facility] [address] [place] [address] Dr. Karina Heath EO # 0.1 103/ul Normal 0.0-0.7 [facility] Comment on above: Performed By: #### C BC #### [facility] [address] [place] [address] Dr. Karina Heath Eosinophils/100 WBC (Bld) 1.5 % Normal 0.9-7.0 [facility] Comment on above: Performed By: #### C BC #### [facility] [address] [place] [address] Dr. Karina Heath Erythrocyte distribution width (RBC) [Ratio] 12.4 % Normal 11.0-15.0 [facility] Comment on above: Performed By: #### C BC #### [facility] [address] [place] [address] Dr. Karina Heath Hematocrit (Bld) [Volume fraction] 33.1 % Critically low 42.0-54.0 [facility] Comment on above: Performed By: #### C BC #### [facility] [address] [place] [address] Dr. Karina Heath Hemoglobin (Bld) [Mass/Vol] 11.0 g/dL Critically low 14.0 -18.0 [facility] Comment on above: Performed By: #### C BC #### [facility] [address] [place] [address] Dr. Karina Heath IG # 0.03 10e3/ul Normal 0.00-0.03 [facility] Comment on above: Performed By: #### C BC #### [facility] [address] [place] [address] Dr. Karina Heath IG % 0.5 % Normal 0.0-0.5 [facility] Comment on above: Performed By: #### C BC #### [facility] [address] [place] [address] Dr. aKrina Heath LYMPH # 1.2 103/ul Normal 1.2-3.8 [facility] Comment on above: Performed By: #### C BC #### [facility] [address] [place] [address] Dr. Karina Heath Lymphocytes/100 WBC (Bld) 20.0 % Critically low 20.5-6 0.0 [facility] Comment on above: Performed By: #### C BC #### [facility] [address] [place] [address] Dr. Karina Heath MANUAL DIFF REQ NO Normal [facility] Comment on above: Performed By: #### C BC #### [facility] [address] [place] [address] Dr. Karina Heath MCH (RBC) [Entitic mass] 28.6 pg Normal 25.9-34.0 [facility] Comment on above: Performed By: #### C BC #### [facility] [address] [place] [address] Dr. Karina Heath MCHC (RBC) [Mass/Vol] 33.2 g/dL Normal 29.9-35.2 [facility] Comment on above: Performed By: #### C BC #### [facility] [address] [place] [address] Dr. Karina Heath MCV (RBC) [Entitic vol] 86.0 fL Normal 80.0-94.0 [facility] Comment on above: Performed By: #### C BC #### [facility] [address] [place] [address] [address] Karina Heath MONO # 0.5 103/ul Normal 0.3-0.8 [facility] Comment on above: Performed By: #### C BC #### [facility] [address] [place] [address] [address] Karina Heath Monocytes/100 WBC (Bld) 9.1 % Normal 1.7-12.0 [facility] Comment on above: Performed By: #### C BC #### [facility] [address] [place] [address] Dr. Karina Heath NEUT # 4.0 103/ul Normal 1.4-6.5 [facility] Comment on above: Performed By: #### C BC #### [facility] [address] [place] [address] Dr. Karina Heath Neutrophils/100 WBC (Bld) 68.4 % Normal 43.0-75.0 [facility] Comment on above: Performed By: #### C BC #### [facility] [address] [place] [address] Dr. Karina Heath Platelet mean volume (Bld) [Entitic vol] 9.2 fL Critically low 9.5-13.5 [facility] Comment on above: Performed By: #### C BC #### [facility] [address] [place] [address] Dr. Karina Heath PLT 214 103/ul Normal 150-450 [facility] Comment on above: Performed By: #### C BC #### [facility] [address] [place] [address] Dr. Karina Heath RBC 3.85 106/ul Critically low 4.70-6.10 [facility] Comment on above: Performed By: #### C BC #### [facility] [address] [place] [address] Dr. Karina Heath WBC 5.8 103/ul Normal 4.0-11.0 [facility] Comment on above: Performed By: #### C BC #### [facility] [address] [place] [address] Dr. Karina Heath CULTURE WOUNDon 10-15-2022 CULTURE WOUND Culture Observations: No growth of anaerobes at 72 hours. Isolate 1 Staphylococcus aureus Moderate growth of ORGANISM 1 Staphylococcus aureus ANTIBIOTIC M.I.C RX STATUS Beta-Lactamase Pos POS F Cefoxitin Screen Neg NEG F Benzylpenicillin >=0.5 R F Oxacillin <=0.25 S F Gentamicin <=0.5 S F Ciprofloxacin <=0.5 S F Levofloxacin <=0.12 S F Moxifloxacin <=0.25 S F Inducible Clindamycin Resistance Neg NEG F Erythromycin <=0.25 S F Clindamycin <=0.25 S F Quinupristin/Dalfo pristin <=0.25 S F Linezolid 2 S F Vancomycin 1 S F Tetracycline <=1 S F Rifampicin <=0.5 S F Trimethoprim/Sulfa methoxazole <=10 S F Normal [facility] Comment on above: Performed By: #### W OUNDCX #### [facility] [address] [place] [address] Dr. Karina Heath POINT OF CARE GLUCOSEon 09-18 Glucose [Mass/Vol] 353 mg/dL Critically high 74-106 [facility] Comment on above: Performed By: #### C BC #### [facility] [address] [place] [address] Dr. Karina Heath Glucose [Mass/Vol] 363 mg/dL Critically high 74-106 [facility] Comment on above: Performed By: #### C BC #### [facility] [address] [place] [address] Dr. Karina Heath PROF CHEM 8 (BAS METB)on Anion gap [Moles/Vol] 12.0 mmol/L Normal [facility] Comment on above: Performed By: #### C VDTBH #### [facility] [address] [place] [address] Dr. Karina Heath Calcium [Mass/Vol] 8.4 mg/dL Critically low 8.5-10.1 [facility] Comment on above: Performed By: #### C VDTBH #### [facility] [address] [address] [address] Karina Heath Chloride [Moles/Vol] 98 mmol/L Normal 98-107 [facility] Comment on above: Performed By: #### C VDTBH #### [facility] [address] [place] [address] Dr. Karina Heath CO2 [Moles/Vol] 27.2 mmol/L Normal 21.0-32.0 [facility] Comment on above: Performed By: #### C VDTBH #### [facility] [address] [place] [address] Dr. Karina Heath Creatinine [Mass/Vol] 1.07 mg/dL Normal 0.70-1.30 [facility] Comment on above: Performed By: #### C VDTBH #### [facility] [address] [place] [address] Dr. Karina Heath EGFR-AF AZERBAIJANI >60 Normal >=60 [facility] Comment on above: Performed By: #### C VDTBH #### [facility] [address] [place] [address] Dr. Karina Heath EGFR-NON AF AZERBAIJANI >60 Normal >=60 [facility] Comment on above: Performed By: #### C VDTBH #### [facility] [address] [place] [address] Dr. Karina Heath Glucose [Mass/Vol] 355 mg/dL Critically high 74-106 [facility] Comment on above: Performed By: #### C VDTBH #### [facility] [address] [address] [address] Karina Heath Potassium [Moles/Vol] 4.2 mmol/L Normal 3.5-5.1 [facility] Comment on above: Performed By: #### C VDTBH #### [facility] [address] [place] [address] Dr. Karina Heath Sodium [Moles/Vol] 133 mmol/L Critically low 136-145 [facility] Comment on above: Performed By: #### C VDTBH #### [facility] [address] [place] [address] Dr. Karina Heath Urea nitrogen [Mass/Vol] 17.0 mg/dL Normal 7.0-18.0 [facility] Comment on above: Performed By: #### C VDTBH #### [facility] [address] [place] [address] Dr. Karina Heath Urea nitrogen/Creatinine [Mass ratio] 15.9 mg/mg Normal [facility] Comment on above: Performed By: #### C VDTBH #### [facility] [address] [place] [address] Dr. Karina Heath PTTon 10-15-2022 aPTT Coag (Bld) [Time] 27.3 s Normal 22.3-36.2 [facility] Comment on above: Performed By: #### C VDTBH #### [facility] [address] [place] [address] Dr. Karina Heath CBC AUTO DIFFon 10-14-2022 BASO # 0.0 103/ul Normal 0.0-0.1 [facility] Comment on above: Performed By: #### C BC #### [facility] [address] [place] [address] Dr. Karina Heath Basophils/100 WBC (Bld) 0.4 % Normal 0.2-2.0 [facility] Comment on above: Performed By: #### C BC #### [facility] [address] [place] [address] Dr. Karina Heath EO # 0.1 103/ul Normal 0.0-0.7 [facility] Comment on above: Performed By: #### C BC #### [facility] [address] [place] [address] Dr. Karina Heath Eosinophils/100 WBC (Bld) 1.5 % Normal 0.9-7.0 [facility] Comment on above: Performed By: #### C BC #### [facility] [address] [place] [address] Dr. Karina Heath Erythrocyte distribution width (RBC) [Ratio] 12.6 % Normal 11.0-15.0 [facility] Comment on above: Performed By: #### C BC #### [facility] [address] [place] [address] Dr. Karina Heath Hematocrit (Bld) [Volume fraction] 31.3 % Critically low 42.0-54.0 [facility] Comment on above: Performed By: #### C BC #### [facility] [address] [place] [address] Dr. Karina Heath Hemoglobin (Bld) [Mass/Vol] 10.8 g/dL Critically low 14.0 -18.0 [facility] Comment on above: Performed By: #### C BC #### [facility] [address] [place] [address] Dr. Karina Heath IG # 0.05 10e3/ul Critically high 0.00-0.03 [facility] Comment on above: Performed By: #### C BC #### [facility] [address] [place] [address] Dr. Karina Heath IG % 0.7 % Critically high 0.0-0.5 [facility] Comment on above: Performed By: #### C BC #### [facility] [address] [place] [address] Dr. Karina Heath LYMPH # 1.4 103/ul Normal 1.2-3.8 [facility] Comment on above: Performed By: #### C BC #### [facility] [address] [place] [address] Dr. Karina Heath Lymphocytes/100 WBC (Bld) 20.8 % Normal 20.5-60.0 [facility] Comment on above: Performed By: #### C BC #### [facility] [address] [place] [address] Dr. Karina Heath MANUAL DIFF REQ NO Normal [facility] Comment on above: Performed By: #### C BC #### [facility] [address] [place] [address] Dr. Karina Heath MCH (RBC) [Entitic mass] 29.4 pg Normal 25.9-34.0 [facility] Comment on above: Performed By: #### C BC #### [facility] [address] [address] [address] Karina Heath MCHC (RBC) [Mass/Vol] 34.5 g/dL Normal 29.9-35.2 [facility] Comment on above: Performed By: #### C BC #### [facility] [address] [address] [address] Karina Heath MCV (RBC) [Entitic vol] 85.3 fL Normal 80.0-94.0 [facility] Comment on above: Performed By: #### C BC #### [facility] [address] [address] [address] Karina Heath MONO # 0.7 103/ul Normal 0.3-0.8 [facility] Comment on above: Performed By: #### C BC #### [facility] [address] [place] [address] Dr. Karina Heath Monocytes/100 WBC (Bld) 10.3 % Normal 1.7-12.0 [facility] Comment on above: Performed By: #### C BC #### [facility] [address] [address] [address] Karina Heath NEUT # 4.5 103/ul Normal 1.4-6.5 [facility] Comment on above: Performed By: #### C BC #### [facility] [address] [place] [address] Dr. Karina Heath Neutrophils/100 WBC (Bld) 66.3 % Normal 43.0-75.0 [facility] Comment on above: Performed By: #### C BC #### [facility] [address] [address] [address] Karina Heath Platelet mean volume (Bld) [Entitic vol] 9.2 fL Critically low 9.5-13.5 [facility] Comment on above: Performed By: #### C BC #### [facility] [address] [address] [address] Karina Heath PLT 227 103/ul Normal 150-450 [facility] Comment on above: Performed By: #### C BC #### [facility] [address] [address] [address] Karina Heath RBC 3.67 106/ul Critically low 4.70-6.10 [facility] Comment on above: Performed By: #### C BC #### [facility] [address] [address] [address] Karina Heath WBC 6.7 103/ul Normal 4.0-11.0 [facility] Comment on above: Performed By: #### C BC #### [facility] [address] [address] [address] Karina Heath CULTURE ANAEROBICon 10-14-20 22 CULTURE ANAEROBIC Culture Observations: NO GROWTH OF ANAEROBES AT 72 HOURS. Normal [facility] Comment on above: Performed By: #### A NACX #### [facility] [address] [place] [address] Dr. Karina Heath GRAM STAINon 10-14-2022 DIPHTHEROIDS Normal [facility] Comment on above: Performed By: #### P OCGLUC #### [facility] [address] [place] [address] Dr. Karina Heath EPITHELIALS Normal [facility] Comment on above: Performed By: #### P OCGLUC #### [facility] [address] [place] [address] Dr. Karina Heath FUNGAL ELEMENTS Normal [facility] Comment on above: Performed By: #### P OCGLUC #### [facility] [address] [place] [address] Dr. Karina Heath GRAM NEG BACILLI Normal [facility] Comment on above: Performed By: #### P OCGLUC #### [facility] [address] [place] [address] Dr. Karina CHEN NEG DIPPLOCOCCI Normal [facility] Comment on above: Performed By: #### P OCGLUC #### [facility] [address] [place] [address] Dr. Karina CHEN POS BACILLI Normal [facility] Comment on above: Performed By: #### P OCGLUC #### [facility] [address] [place] [address] Dr. Karina Heath GRAM POSITIVE COCCI FEW Normal [facility] Comment on above: Performed By: #### P OCGLUC #### [facility] [address] [address] [address] Karina Heath GRAM STAIN SOURCE Rt Leg Abscess [facility] Comment on above: Performed By: #### P OCGLUC #### [facility] [address] [address] [address] Karina Heath GS_DIPTH [facility] Comment on above: Performed By: #### P OCGLUC #### [facility] [address] [address] [address] Karina Heath WBC RARE [facility] Comment on above: Performed By: #### P OCGLUC #### [facility] [address] [address] [address] Karina Heath POINT OF CARE GLUCOSEon 09-17 Glucose [Mass/Vol] 282 mg/dL Critically high [address] [place] [address] Comment on above: Performed By: #### C BC #### [facility] [address] [address] [address] Karina Heath Glucose [Mass/Vol] 281 mg/dL Critically high [address] [place] [address] Comment on above: Performed By: #### P OCGLUC #### [facility] [address] [address] [address] Karina Heath Glucose [Mass/Vol] 157 mg/dL Critically high [address] [place] [address] Comment on above: Performed By: #### P OCGLUC #### [facility] [address] [address] [address] Karina Heath Glucose [Mass/Vol] 180 mg/dL Critically high [address] [place] [address] Comment on above: Performed By: #### P OCGLUC #### [facility] [address] [address] [address] Karina Heath PROF CHEM 8 (BAS METB)on Anion gap [Moles/Vol] 10.4 mmol/L Normal [facility] Comment on above: Performed By: #### C BC #### [facility] [address] [address] [address] Karina Heath Calcium [Mass/Vol] 8.4 mg/dL Critically low 8.5-10.1 [facility] Comment on above: Performed By: #### C BC #### [facility] [address] [address] [address] Karina Heath Chloride [Moles/Vol] 99 mmol/L Normal 98-107 [facility] Comment on above: Performed By: #### C BC #### [facility] [address] [address] [address] Karina Heath CO2 [Moles/Vol] 29.3 mmol/L Normal 21.0-32.0 [facility] Comment on above: Performed By: #### C BC #### [facility] [address] [place] [address] Dr. Karina Heath Creatinine [Mass/Vol] 1.01 mg/dL Normal 0.70-1.30 [facility] Comment on above: Performed By: #### C BC #### [facility] [address] [place] [address] Dr. Karina Heath EGFR-AF AZERBAIJANI >60 Normal >=60 [facility] Comment on above: Performed By: #### C BC #### [facility] [address] [place] [address] Dr. Karina Heath EGFR-NON AF AZERBAIJANI >60 Normal >=60 [facility] Comment on above: Performed By: #### C BC #### [facility] [address] [address] [address] Karina Heath Glucose [Mass/Vol] 394 mg/dL Critically high 74-106 [facility] Comment on above: Performed By: #### C BC #### [facility] [address] [place] [address] Dr. Karina Heath Potassium [Moles/Vol] 3.7 mmol/L Normal 3.5-5.1 [facility] Comment on above: Performed By: #### C BC #### [facility] [address] [place] [address] Dr. Karina Heath Sodium [Moles/Vol] 135 mmol/L Critically low 136-145 Th [facility] Comment on above: Performed By: #### C BC #### [facility] [address] [place] [address] Dr. Karina Heath Urea nitrogen [Mass/Vol] 13.0 mg/dL Normal 7.0-18.0 [facility] Comment on above: Performed By: #### C BC #### [facility] [address] [place] [address] Dr. Karina Heath Urea nitrogen/Creatinine [Mass ratio] 12.9 mg/mg Normal [facility] Comment on above: Performed By: #### C BC #### [facility] [address] [place] [address] Dr. Karina Heath PTTon 10-14-2022 aPTT Coag (Bld) [Time] 26.5 s Normal 22.3-36.2 [facility] Comment on above: Performed By: #### P OCGLUC #### [facility] [address] [place] [address] Dr. Karina Heath CBC AUTO DIFFon 10-13-2022 BASO # 0.1 103/ul Normal 0.0-0.1 [facility] Comment on above: Performed By: #### C BC #### [facility] [address] [place] [address] Dr. Karina Heath Basophils/100 WBC (Bld) 0.8 % Normal 0.2-2.0 [facility] Comment on above: Performed By: #### C BC #### [facility] [address] [place] [address] Dr. Karina Heath EO # 0.1 103/ul Normal 0.0-0.7 [facility] Comment on above: Performed By: #### C BC #### [facility] [address] [place] [address] Dr. Karina Heath Eosinophils/100 WBC (Bld) 1.8 % Normal 0.9-7.0 [facility] Comment on above: Performed By: #### C BC #### [facility] [address] [place] [address] Dr. Karina Heath Erythrocyte distribution width (RBC) [Ratio] 12.3 % Normal 11.0-15.0 [facility] Comment on above: Performed By: #### C BC #### [facility] [address] [place] [address] Dr. Karina Heath Hematocrit (Bld) [Volume fraction] 33.7 % Critically low 42.0-54.0 [facility] Comment on above: Performed By: #### C BC #### [facility] [address] [place] [address] Dr. Karina Heath Hemoglobin (Bld) [Mass/Vol] 11.8 g/dL Critically low 14.0 -18.0 [facility] Comment on above: Performed By: #### C BC #### [facility] [address] [place] [address] Dr. Karina Heath IG # 0.05 10e3/ul Critically high 0.00-0.03 [facility] Comment on above: Performed By: #### C BC #### [facility] [address] [place] [address] Dr. Karina Heath IG % 0.8 % Critically high 0.0-0.5 [facility] Comment on above: Performed By: #### C BC #### [facility] [address] [place] [address] Dr. Karina Heath LYMPH # 1.0 103/ul Critically low 1.2-3.[address] [facility] Comment on above: Performed By: #### C BC #### [facility] [address] [place] [address] Dr. Karina Heath Lymphocytes/100 WBC (Bld) 16.4 % Critically low 20.5-6 0.0 [facility] Comment on above: Performed By: #### C BC #### [facility] [address] [place] [address] Dr. Karina Heath MANUAL DIFF REQ NO Normal [facility] Comment on above: Performed By: #### C BC #### [facility] [address] [place] [address] Dr. Karina Heath MCH (RBC) [Entitic mass] 28.9 pg Normal 25.9-34.0 [facility] Comment on above: Performed By: #### C BC #### [facility] [address] [place] [address] Dr. Karina Heath MCHC (RBC) [Mass/Vol] 35.0 g/dL Normal 29.9-35.2 [facility] Comment on above: Performed By: #### C BC #### [facility] [address] [place] [address] Dr. Karina Heath MCV (RBC) [Entitic vol] 82.6 fL Normal 80.0-94.0 [facility] Comment on above: Performed By: #### C BC #### [facility] [address] [place] [address] Dr. Karina Heath MONO # 0.7 103/ul Normal 0.3-0.8 [facility] Comment on above: Performed By: #### C BC #### [facility] [address] [place] [address] Dr. Karina Heath Monocytes/100 WBC (Bld) 10.6 % Normal 1.7-12.0 [facility] Comment on above: Performed By: #### C BC #### [facility] [address] [place] [address] Dr. Karina Heath NEUT # 4.3 103/ul Normal 1.4-6.5 [facility] Comment on above: Performed By: #### C BC #### [facility] [address] [place] [address] Dr. Karina Heath Neutrophils/100 WBC (Bld) 69.6 % Normal 43.0-75.0 [facility] Comment on above: Performed By: #### C BC #### [facility] [address] [place] [address] Dr. Karina Heath Platelet mean volume (Bld) [Entitic vol] 9.0 fL Critically low 9.5-13.5 [facility] Comment on above: Performed By: #### C BC #### [facility] [address] [address] [address] Karina Heath PLT 257 103/ul Normal 150-450 [facility] Comment on above: Performed By: #### C BC #### [facility] [address] [address] [address] Karina Heath RBC 4.08 106/ul Critically low 4.70-6.10 [facility] Comment on above: Performed By: #### C BC #### [facility] [address] [address] [address] Karina Heath WBC 6.1 103/ul Normal 4.0-11.0 [facility] Comment on above: Performed By: #### C BC #### [facility] [address] [place] [address] Dr. Karina Heath CULTURE BLOODon 10-13-2022 Microscopic examination of blood, culture Culture Observations: NO GROWTH AT 5 DAYS. Normal [facility] Comment on above: Performed By: #### P OCGLUC #### [facility] [address] [place] [address] Dr. Karina Heath Microscopic examination of blood, culture Culture Observations: NO GROWTH AT 5 DAYS. Normal [facility] Comment on above: Performed By: #### P OCGLUC #### [facility] [address] [place] [address] Dr. Karina Heath Covid-19 PCR ([facility])on 09-17 SARS-CoV-2 (COVID-19) RNA MEETA+probe Ql (Unsp spec) Not detected Normal NOT DETECTED [facility] Comment on above: Result Comment: When diagnostic testing is negative, the possibility of a false negative should be considered in the context of a patient's recent exposures and the presence of clinical signs and symptoms consistent with SARS-CoV-2. This test is not yet approved or cleared by the [place] FDA. When there are no FDA-approved or cleared tests available, and other criteria are met, FDA can make tests available under an emergency access mechanism called an Emergency Use Authorization (EUA). The EUA for this test is supported by the [place] of Health and Human Service's declaration that circumstances exist to justify the emergency use of in vitro diagnostics for the detection and/or diagnosis of the virus that causes COVID-19. This EUA will remain in effect for the duration of the COVID-19 declaration justifying emergency of IVDs, unless it is terminated or revoked by the FDA (after which the test may no longer be used). Performed By: #### P OCGLUC #### [facility] [address] [place] [address] Dr. Karina Heath POINT OF CARE GLUCOSEon 12-2 Glucose [Mass/Vol] 281 mg/dL Critically high 74-106 [facility] Comment on above: Performed By: #### P OCGLUC #### [facility] [address] [place] [address] Dr. Karina Heath GI PANEL (PCR)on 09-24-2022 Adenovirus F 40/41 Not detected Normal NOT DETECTED [facility] Comment on above: Performed By: #### C BC #### [facility] [address] [place] [address] Dr. Karina Heath Astrovirus Not detected Normal NOT DETECTED [facility] Comment on above: Performed By: #### C BC #### [facility] [address] [place] [address] Dr. Karina Heath C. Diff toxin A/B Not detected Normal NOT DETECTED [facility] Comment on above: Performed By: #### C BC #### [facility] [address] [place] [address] Dr. Karina Heath Campylobacter Not detected Normal NOT DETECTED [facility] Comment on above: Performed By: #### C BC #### [facility] [address] [place] [address] Dr. Karina Heath Cryptosporidium Not detected Normal NOT DETECTED [facility] Comment on above: Performed By: #### C BC #### [facility] [address] [place] [address] Dr. Karina Heath Cyclos. Cayetanensis Not detected Normal NOT DETECTED [facility] Comment on above: Performed By: #### C BC #### [facility] [address] [place] [address] Dr. Karina Heath E. Coli O157 Not Applicable Normal Not Applicable [facility] Comment on above: Performed By: #### C BC #### [facility] [address] [place] [address] Dr. Karina Heath E. histolytica Not detected Normal NOT DETECTED [facility] Comment on above: Performed By: #### C BC #### [facility] [address] [place] [address] Dr. Karina Heath EAEC Not detected Normal NOT DETECTED [facility] Comment on above: Performed By: #### C BC #### [facility] [address] [place] [address] Dr. Karina Heath EIEC Not detected Normal NOT DETECTED [facility] Comment on above: Performed By: #### C BC #### [facility] [address] [place] [address] Dr. Karina Heath EPEC Not detected Normal NOT DETECTED [facility] Comment on above: Performed By: #### C BC #### [facility] [address] [place] [address] Dr. Karina Heath ETEC Not detected Normal NOT DETECTED [facility] Comment on above: Performed By: #### C BC #### [facility] [address] [place] [address] Dr. Karina Heath G. Lamblia Not detected Normal NOT DETECTED [facility] Comment on above: Performed By: #### C BC #### [facility] [address] [place] [address] Dr. Karina RODRIGUEZANEL CONTROLS PASSED Normal [facility] Comment on above: Performed By: #### C BC #### [facility] [address] [place] [address] Dr. Karina VELIZ AMARI HEADER GI PANEL BACTERIA Normal [facility] Comment on above: Performed By: #### C BC #### [facility] [address] [place] [address] Dr. Karina VELIZHD ECOLI GI PANEL DIARRHEAGENIC E.COLI / SHIGELLA Normal [facility] Comment on above: Performed By: #### C BC #### [facility] [address] [place] [address] Dr. Karina MARTIN INFO SEE BELOW Normal [facility] Comment on above: Result Comment: EAEC - Enteroaggregative E. Coli EPEC- Enteropathogenic E. Coli ETEC- Enterotoxigenic E. Coli lt/st STEC- Shigella-like toxin-producing E. Coli stx1/stx2 EIEC- Shigella/Enteroinvasive E. Coli Performed By: #### C BC #### [facility] [address] [place] [address] Dr. Karina MARTIN PARASITES GI PANEL PARASITES Normal [facility] Comment on above: Performed By: #### C BC #### [facility] [address] [place] [address] Dr. Karina MARTIN VIRUS GI PANEL VIRUSES Normal [facility] Comment on above: Performed By: #### C BC #### [facility] [address] [place] [address] Dr. Karina Heath Norovirus GI/GII Not detected Normal NOT DETECTED [facility] Comment on above: Performed By: #### C BC #### [facility] [address] [place] [address] Dr. Karina Heath P. Shigelloides Not detected Normal NOT DETECTED [facility] Comment on above: Performed By: #### C BC #### [facility] [address] [place] [address] Dr. Karina Heath Rotavirus A Not detected Normal NOT DETECTED [facility] Comment on above: Performed By: #### C BC #### [facility] [address] [place] [address] Dr. Karina Heath Salmonella Not detected Normal NOT DETECTED [facility] Comment on above: Performed By: #### C BC #### [facility] [address] [place] [address] Dr. Karina Heath Sapovirus Not detected Normal NOT DETECTED [facility] Comment on above: Performed By: #### C BC #### [facility] [address] [place] [address] Dr. Karina Heath STEC Detected Critically abnormal NOT DETECTED [facility] Comment on above: Performed By: #### C BC #### [facility] [address] [place] [address] Dr. Karina Heath Vibrio Not detected Normal NOT DETECTED [facility] Comment on above: Performed By: #### C BC #### [facility] [address] [place] [address] Dr. Karina Heath Vibrio Cholera Not detected Normal NOT DETECTED [facility] Comment on above: Performed By: #### C BC #### [facility] [address] [place] [address] Dr. Karina Heath Y. Enterocolitica Not detected Normal NOT DETECTED [facility] Comment on above: Performed By: #### C BC #### [facility] [address] [place] [address] Dr. Karina Heath Covid-19 PCR ([facility])on 05-17 SARS-CoV-2 (COVID-19) RNA MEETA+probe Ql (Unsp spec) Detected Critically abnormal NOT DETECTED [facility] Comment on above: Result Comment: This test is not yet approved or cleared by the [place] FDA. When there are no FDA-approved or cleared tests available, and other criteria are met, FDA can make tests available under an emergency access mechanism called an Emergency Use Authorization (EUA). The EUA for this test is supported by the Rating Specialist of Health and Human Service's declaration that circumstances exist to justify the emergency use of in vitro diagnostics for the detection and/or diagnosis of the virus that causes COVID-19. This EUA will remain in effect for the duration of the COVID-19 declaration justifying emergency of IVDs, unless it is terminated or revoked by the FDA (after which the test may no longer be used). Performed By: #### P OCGLUC #### [facility] [address] [place] [address] Dr. Karina Heath CAROTID ART BILon 022 US CAROTID ART GWYN EXAMINATION: US CAROTID ART GWYN HISTORY: Monoplegia of right nondominant upper limb COMPARISON: No relevant comparison available. TECHNIQUE: Duplex Doppler ultrasound analysis of carotid and vertebral arteries. . Bilateral carotid arterial duplex examination was performed using B-mode, color flow and spectral analysis. Carotid stenosis is reported according to validated velocity parameters, similar to NASCET criteria. FINDINGS: RIGHT CAROTID ARTERY Mild atherosclerotic plaque Subclavian: PSV: 145.7 cm/s cm/s EDV: 0.0 cm/s cm/s CCA: Prox: PSV: 98.4 cm/s cm/s EDV: 25.4 cm/s cm/s Mid: PSV: 85.3 cm/s cm/s EDV: 19.3 cm/s cm/s Distal: PSV: 85.3 cm/s cm/s EDV: 29.6 cm/s cm/s BULB: PSV: 81.4 cm/s cm/s EDV: 25.8 cm/s cm/s ICA: Prox: PSV: 84.0 cm/s cm/s EDV: 28.3 cm/s cm/s Mid: PSV: 85.3 cm/s cm/s EDV: 37.4 cm/s cm/s Distal: PSV: 71.0 cm/s cm/s EDV: 28.3 cm/s cm/s ECA: PSV: 133.3 cm/s cm/s EDV: 22.9 cm/s cm/s VERTEBRAL: PSV: 37.0 cm/s cm/s EDV: 12.9 cm/s cm/s ICA/CCA ratio: PSV: 0.9 EDV: 1.5 LEFT CAROTID ARTERY Mild atherosclerotic plaque Subclavian: PSV: 120.5 cm/s cm/s EDV: 0.0 cm/s CCA: Prox: PSV: 87.1 cm/s cm/s EDV: 25.7 cm/s Mid: PSV: 106.4 cm/s cm/s EDV: 30.5 cm/s Distal: PSV: 88.6 cm/s cm/s EDV: 28.9 cm/s BULB: PSV: 63.6 cm/s cm/s EDV: 20.8 cm/s ICA: Prox: PSV: 65.8 cm/s cm/s EDV: 20.8 cm/s Mid: PSV: 73.5 cm/s cm/s EDV: 26.3 cm/s Distal: PSV: 61.4 cm/s cm/s EDV: 29.6 cm/s ECA: PSV: 83.6 cm/s cm/s EDV: 15.0 cm/s VERTEBRAL: PSV: 50.0 cm/s cm/s EDV: 21.5 cm/s ICA/CCA ratio: PSV: 0.7 EDV: 0.9 IMPRESSION: 0-49% flow stenosis in the internal carotid arteries Spectral Doppler US Thresholds (Reference: Mitchel EG, et al. Radiology 2000; 214:247-252) Stenosis (%) PSV (cm/sec) VICA/VCCA 0-49 <150 <2.5 50-69 150-225 2.5-4.0 >70 >225 >4.0 Electronically authenticated by: RAMIRO BURNETT Date: 2022-04-28 18:57 Normal [facility] Basic Metab w/rfx MGon 04-20 (cont.) Normal [facility] Comment on above: Result Comment: Aver age GFR for 40-49 years old: 99 mL/min/1.73sq m Chronic Kidney Disease: <60 mL/min/1.73sq m Kidney failure: <15 mL/min/1.73sq m eGFR calculated using average adult body mass. Additional eGFR calculator available at: http://www.[employer]re[employer]/multiple_crcl_2011.htm Performed By: #### B C #### [id number] [place], [place] [id number] Windows Technical Specialist: Ramiro Mark MD [facility] [address] [place] [address] [place] [address] Windows Technical Specialist: Ramiro Santillan MD Anion gap [Moles/Vol] 13 mmol/L Normal 9-17 [facility] Comment on above: Performed By: #### B C #### [facility] [address] [place], [place] [id number] Windows Technical Specialist: Ramiro Mark MD [facility] [address] [place] [address] [place] [address] Windows Technical Specialist: Ramiro Santillan MD BUN/CRE Ratio 27 High 9-20 [facility] Comment on above: Performed By: #### B C #### [facility] [address] [place] [address] Windows Technical Specialist: Ramiro Mark MD [facility] [address] [place] [address] Dr[address] [place], [place] [id number] Windows Technical Specialist: Ramiro Santillan MD Calcium [Mass/Vol] 9.1 mg/dL Normal 8.6-10.4 [facility] Comment on above: Performed By: #### B C #### [facility] [address] [place] [address] Windows Technical Specialist: Ramiro Mark MD [facility] [address] [place] [address] Dr[address] [place] [id number] Windows Technical Specialist: Ramiro Santillan MD Chloride [Moles/Vol] 97 mmol/L Low 98-107 [facility] Comment on above: Performed By: #### B C #### [address] [address] Windows Technical Specialist: Ramiro Mark MD [facility] [address] [place] [address] Dr. [place], [place] [id number] Windows Technical Specialist: Ramiro Santillan MD CO2 [Moles/Vol] 23 mmol/L Normal 20-31 [facility] Comment on above: Performed By: #### B C #### [facility] [address] [place] [address] Windows Technical Specialist: Ramiro Mark MD [facility] [address] [place] [address] [place] [address] Windows Technical Specialist: Ramiro Santillan MD Creatinine [Mass/Vol] 1.46 mg/dL High 0.70-1.20 [facility] Comment on above: Performed By: #### B C #### [facility] [address] [place] [address] Windows Technical Specialist: Ramiro Mark MD [facility] [address] [place] [address] Dr[address] [place], [place] [id number] Windows Technical Specialist: Ramiro Santillan MD GFR, Amer >60 Normal >60 [facility] Comment on above: Performed By: #### B C #### [facility] [address] [place] [address] Windows Technical Specialist: Ramiro Mark MD [facility] [address] [place] [address] Dr. [place], [place] [id number] Windows Technical Specialist: Ramiro Santillan MD GFR,non Amer 52 mL/min Low >60 [facility] Comment on above: Performed By: #### B C #### [address] [address] Windows Technical Specialist: Ramiro Mark MD [address] [place], [place] [id number] Windows Technical Specialist: Ramiro Santillan MD Glucose [Mass/Vol] 154 mg/dL High 70-99 [facility] Comment on above: Performed By: #### B C #### [address] [address] Windows Technical Specialist: Ramiro Mark MD [facility] [address] [place] [address] Dr. [place], [place] [phone] Windows Technical Specialist: Ramiro Santillan MD Potassium [Moles/Vol] 4.0 mmol/L Normal 3.7-5.3 [facility] Comment on above: Performed By: #### B C #### [address] [address] Windows Technical Specialist: Ramiro Mark MD [facility] [address] [place] [address] [place] [address] Windows Technical Specialist: Ramiro Santillan MD Sodium [Moles/Vol] 133 mmol/L Low 135-144 [facility] Comment on above: Performed By: #### B C #### [facility] [address] [place] [address] Windows Technical Specialist: Ramiro Mark MD [facility] [address] [place] [address] Dr. [place], [place] [id number] Windows Technical Specialist: Ramiro Santillan MD Staging: Normal [facility] Comment on above: Result Comment: Stag e 1: Some kidney damage normal GFR Stage 2: Mild kidney damage GFR 60-89 Stage 3: Moderate kidney damage GFR 30-59 Stage 4: Severe kidney damage GFR 15-29 Stage 5: Severe kidney damage GFR <15 ESRD - chronic treatment by dialysis or transplant Performed By: #### B C #### [address] [place], [place] [id number] Windows Technical Specialist: Ramiro Mark MD [address] [place] [id number] Windows Technical Specialist: Ramiro Santillan MD Urea nitrogen [Mass/Vol] 39 mg/dL High 6-20 [facility] Comment on above: Performed By: #### B C #### [address] [place] [address] Windows Technical Specialist: Ramiro Mark MD [address] [place] [phone] Windows Technical Specialist: Ramiro Santillan MD CBC with Diffon 04-20-2022 Abs. Basophil 0.05 k/uL Normal 0.00-0.20 [facility] Comment on above: Performed By: #### F LUAD #### [address] [place] [id number] Windows Technical Specialist: Ramiro Santillan MD Abs.Imm.Granulocyte 0.04 k/uL Normal 0.00-0.30 [facility] Comment on above: Performed By: #### F LUAD #### [address] [place] [phone] Windows Technical Specialist: Ramiro Santillan MD Abs.Neutrophil (Seg) 7.72 k/uL Normal 1.50-8.10 [facility] Comment on above: Performed By: #### F LUAD #### [address] [place] [facility]83 Windows Technical Specialist: Ramiro Santillan MD Basophils/100 WBC (Bld) 1 % Normal 0-2 [facility] Comment on above: Performed By: #### F LUAD #### [facility] [address] [place] [address] Dr. [place], [place] [id number] Windows Technical Specialist: Ramiro Santillan MD Eosinophils (Bld) [#/Vol] 0.13 10*3/uL Normal 0.00-0.4 4 [facility] Comment on above: Performed By: #### F LUAD #### [facility] [address] [place] [address] Dr. [place], [place] [phone] Windows Technical Specialist: Ramiro Santillan MD Eosinophils/100 WBC (Bld) 1 % Normal 1-4 [facility] Comment on above: Performed By: #### F LUAD #### [address] [place], [place] [phone] Windows Technical Specialist: Ramiro Santillan MD Erythrocyte distribution width (RBC) [Ratio] 13.4 % Normal 11.8-14.4 [facility] Comment on above: Performed By: #### F LUAD #### [address] [place], [place] [id number] Windows Technical Specialist: Ramiro Santillan MD Hematocrit (Bld) [Volume fraction] 45.8 % Normal 40.7-50.3 [facility] Comment on above: Performed By: #### F LUAD #### [address] [place], [place] [phone] Windows Technical Specialist: Ramiro Santillan MD Hemoglobin (Bld) [Mass/Vol] 15.2 g/dL Normal 13.0-17. 0 [facility] Comment on above: Performed By: #### F LUAD #### [address] [place], [place] [phone] Windows Technical Specialist: Ramiro Santillan MD Immature granulocytes/100 WBC (Bld) 0 % Normal 0 [facility] Comment on above: Performed By: #### F LUAD #### [facility] [address] [place] [address] Windows Technical Specialist: Ramiro Santillan MD Lymphocytes (Bld) [#/Vol] 1.66 10*3/uL Normal 1.10-3.7 0 [facility] Comment on above: Performed By: #### F LUAD #### [facility] [address] [place] [address] Windows Technical Specialist: Ramiro Santillan MD Lymphocytes/100 WBC (Bld) 16 % Low 24-43 [facility] Comment on above: Performed By: #### F LUAD #### [facility] [address] [place] [address] Windows Technical Specialist: Ramiro Santillan MD MCH (RBC) [Entitic mass] 28.1 pg Normal 25.2-33.5 [facility] Comment on above: Performed By: #### F LUAD #### [facility] [address] [place] [address] Dr. [place], [place] [phone] Windows Technical Specialist: Ramiro Santillan MD MCHC (RBC) [Mass/Vol] 33.2 g/dL Normal 28.4-34.8 [facility] Comment on above: Performed By: #### F LUAD #### [facility] [address] [place] [address] Dr. [place], [place] [phone] Windows Technical Specialist: Ramiro Santillan MD MCV (RBC) [Entitic vol] 84.8 fL Normal 82.6-102.9 [facility] Comment on above: Performed By: #### F LUAD #### [facility] [address] [place] [address] Windows Technical Specialist: Ramiro Santillan MD Monocytes (Bld) [#/Vol] 0.72 10*3/uL Normal 0.10-1.20 [facility] Comment on above: Performed By: #### F LUAD #### [facility] [address] [place], [place] [phone] Windows Technical Specialist: Ramiro Santillan MD Monocytes/100 WBC (Bld) 7 % Normal 3-12 [facility] Comment on above: Performed By: #### F LUAD #### [facility] [address] [place], [place] [phone] Windows Technical Specialist: Ramiro Santillan MD Neutrophil (Seg) 75 % High 36-65 [facility] Comment on above: Performed By: #### F LUAD #### [facility] [address] [place], [place] [phone] Windows Technical Specialist: Ramiro Santillan MD NRBC Automated 0.0 per 100 WBC Normal 0.0 [facility] Comment on above: Performed By: #### F LUAD #### [address] [place], [place] [phone] Windows Technical Specialist: Ramiro Santillan MD Platelet mean volume (Bld) [Entitic vol] 9.2 fL Normal 8.1-13.5 [facility] Comment on above: Performed By: #### F LUAD #### [address] [place], [place] [phone] Windows Technical Specialist: Ramiro Santillan MD Platelets (Bld) [#/Vol] 214 10*3/uL Normal 138-453 [facility] Comment on above: Performed By: #### F LUAD #### [facility] [address] [place] [address] Dr. [place], [place] [phone] Windows Technical Specialist: Ramiro Santillan MD RBC (Bld) [#/Vol] 5.40 10*6/uL Normal 4.21-5.77 [facility] Comment on above: Performed By: #### F LUAD #### [facility] [address] [place] [address] Dr. [place], [place] [phone] Windows Technical Specialist: Ramiro Santillan MD WBC (Bld) [#/Vol] 10.3 10*3/uL Normal 3.5-11.3 [facility] Comment on above: Performed By: #### F LUNUNU #### [facility] [address] [place] [address] Windows Technical Specialist: Ramiro Santillan MD CT HEAD WO CONTRASTon 2021 CT HEAD WO CONTRAST EXAMINATION: CT OF THE HEAD WITHOUT CONTRAST 04/19/2022 7:15 pm TECHNIQUE: CT of the head was performed without the administration of intravenous contrast. Automated exposure control, iterative reconstruction, and/or weight based adjustment of the mA/kV was utilized to reduce the radiation dose to as low as reasonably achievable. COMPARISON: 04/04/2022 HISTORY: ORDERING SYSTEM PROVIDED HISTORY: INTRACTABLE HEADACHE TECHNOLOGIST PROVIDED HISTORY: INTRACTABLE HEADACHE Decision Support Exception - unselect if not a suspected or confirmed emergency medical condition->Emergen cy Medical Condition (MA) FINDINGS: BRAIN/VENTRICLES: No acute loss of the winkler-white matter differentiation is identified to suggest acute or subacute infarct. No masses or hemorrhages within the brain parenchyma are found. No evidence of midline shift. The intracranial vasculature, including the dural venous sinuses, is within normal limits. ORBITS: No acute orbital abnormalities are identified. SINUSES: Chronic appearing right sphenoidal mucosal thickening is again detected, with internal dystrophic calcifications, not substantially changed when compared to the previous exam. Paranasal sinuses and mastoid air cells are otherwise clear. SOFT TISSUES/SKULL: The calvarium is intact. Extracranial soft tissues are unremarkable. IMPRESSION: No acute intracranial abnormality. Interpreted by: Ajay Aggarwal MD Signed by: Ajay Aggarwal MD 04/19/22 Final result Normal [facility] PTon 04-20-2022 INR Coag (PPP) [Relative time] 1.0 {INR} Normal [facility] Comment on above: Result Comment: Non-therapeutic Range: INR = 0.9-1.2 Therapeutic Range: Moderate Anticoagulant Intensity: INR = 2.0-3.0 High Anticoagulant Intensity: INR = 2.5-3.5 Performed By: #### F LUAD #### [facility] [address] [place] [address] Windows Technical Specialist: Ramiro Santillan MD PT Coag (PPP) [Time] 13.4 s Normal 11.5-14.2 [facility] Comment on above: Performed By: #### F LUAD #### [facility] [address] [place] [address] Windows Technical Specialist: Ramiro Santillan MD Troponinon 04-20-2022 Troponin, High Sens 18 ng/L Normal 0-22 [facility] Comment on above: Result Comment: High Sensitivity Troponin values cannot be compared with other Troponin methodologies. Patients with high levels of Biotin oral intake (i.e >5mg/day) may have falsely decreased Troponin levels. Samples collected within 8 hours of biotin intake may require additional information for diagnosis. Performed By: #### B C #### [facility] [address] [place] [address] Windows Technical Specialist: Ramiro Mark MD [facility] [address] [place] [address] [place] [address] Windows Technical Specialist: Ramiro Santillan MD Basic Metabolic Panel w/ Ref jose to MGon 04-19-2022 Anion gap [Moles/Vol] 13 mmol/L 9 - 17 mmol/L [facility] Calcium [Mass/Vol] 9.1 mg/dL 8.6 - 10. 4 mg/dL [facility] Chloride [Moles/Vol] 97 mmol/L Low 98 - 10 7 mmol/L [facility] CO2 [Moles/Vol] 23 mmol/L 20 - 31 mmol/L [facility] Creatinine [Mass/Vol] 1.46 mg/dL High 0.70 - 1.20 mg/dL [facility] GFR >60 >60 mL/min [facility] GFR Non- 52 mL/min Low >60 [facility] Glucose [Mass/Vol] 154 mg/dL High 70 - 99 mg/dL [facility] Interpretation and review of laboratory results Abnormal [facility] Potassium [Moles/Vol] 4.0 mmol/L 3.7 - 5.3 mmol/L [facility] Sodium [Moles/Vol] 133 mmol/L Low 135 - 144 mmol/L [facility] Urea nitrogen (BldV) [Mass/Vol] 39 mg/dL High 6 - 20 mg/dL [facility] Urea nitrogen/Creatinine (Bld) [Mass ratio] 27 High [facility] CBC with Auto Differentialon 04-19-2022 Absolute Eos # 0.13 [facility] Absolute Immature Granulocyte 0.04 [facility] Absolute Lymph # 1.66 [facility] Absolute Meagher # 0.72 [facility] Basophils (Bld) [#/Vol] 0.05 10*3/uL [facility] Basophils/100 WBC (Bld) 1 % 0 - 2 % [facility] Eosinophils/100 WBC (Bld) 1 % 1 - 4 % [facility] Hematocrit (Bld) [Volume fraction] 45.8 % 40.7 - 50.3 % [facility] Hemoglobin (Bld) [Mass/Vol] 15.2 g/dL 13.0 - 17.0 g/dL [facility] Immature granulocytes/100 WBC (Bld) 0 % 0 [facility] Interpretation and review of laboratory results Abnormal [facility] Lymphocytes/100 WBC (Bld) 16 % Low 24 - 43 % [facility] MCH (RBC) [Entitic mass] 28.1 pg 25. 2 - 33.5 pg [facility] MCHC (RBC) [Mass/Vol] 33.2 g/dL 28.4 - 34.8 g/dL [facility] MCV (RBC) [Entitic vol] 84.8 fL 82.6 - 102.9 fL [facility] Monocytes/100 WBC (Bld) 7 % 3 - 12 % [facility] NRBC Automated 0.0 0.0 per 100 WBC [facility] Platelet distribution width (Bld) [Ratio] 13.4 % 11.8 - 14.4 % [facility] Platelet mean volume (Bld) [Entitic vol] 9.2 fL 8.1 - 13.5 fL [facility] Platelets (Bld) [#/Vol] 214 10*3/uL [facility] RBC (Bld) [#/Vol] 5.40 10*6/uL 4.21 - 5.7 7 m/uL [facility] Segmented neutrophils/100 WBC (Bld) 75 % High 36 - 65 % [facility] Segs Absolute 7.72 [facility] WBC (Bld) [#/Vol] 10.3 10*3/uL [facility] Head WO Contraston 2021 No acute intracranial abnormality. [facility] EXAMINATION: CT OF THE HEAD WITHOUT CONTRAST 04/19/2022 7:15 pm TECHNIQUE: CT of the head was performed without the administration of intravenous contrast. Automated exposure control, iterative reconstruction, and/or weight based adjustment of the mA/kV was utilized to reduce the radiation dose to as low as reasonably achievable. COMPARISON: 04/04/2022 HISTORY: ORDERING SYSTEM PROVIDED HISTORY: INTRACTABLE HEADACHE TECHNOLOGIST PROVIDED HISTORY: INTRACTABLE HEADACHE Decision Support Exception - unselect if not a suspected or confirmed emergency medical condition->Emergen cy Medical Condition (MA) FINDINGS: BRAIN/VENTRICLES: No acute loss of the winkler-white matter differentiation is identified to suggest acute or subacute infarct. No masses or hemorrhages within the brain parenchyma are found. No evidence of midline shift. The intracranial vasculature, including the dural venous sinuses, is within normal limits. ORBITS: No acute orbital abnormalities are identified. SINUSES: Chronic appearing right sphenoidal mucosal thickening is again detected, with internal dystrophic calcifications, not substantially changed when compared to the previous exam. Paranasal sinuses and mastoid air cells are otherwise clear. SOFT TISSUES/SKULL: The calvarium is intact. Extracranial soft tissues are unremarkable. [facility] Ajay Aggarwal MD - 04/19/2022 EXAMINATION: CT OF THE HEAD WITHOUT CONTRAST 04/19/2022 7:15 pm TECHNIQUE: CT of the head was performed without the administration of intravenous contrast. Automated exposure control, iterative reconstruction, and/or weight based adjustment of the mA/kV was utilized to reduce the radiation dose to as low as reasonably achievable. COMPARISON: 04/04/2022 HISTORY: ORDERING SYSTEM PROVIDED HISTORY: INTRACTABLE HEADACHE TECHNOLOGIST PROVIDED HISTORY: INTRACTABLE HEADACHE Decision Support Exception - unselect if not a suspected or confirmed emergency medical condition->Emergen cy Medical Condition (MA) FINDINGS: BRAIN/VENTRICLES: No acute loss of the winkler-white matter differentiation is identified to suggest acute or subacute infarct. No masses or hemorrhages within the brain parenchyma are found. No evidence of midline shift. The intracranial vasculature, including the dural venous sinuses, is within normal limits. ORBITS: No acute orbital abnormalities are identified. SINUSES: Chronic appearing right sphenoidal mucosal thickening is again detected, with internal dystrophic calcifications, not substantially changed when compared to the previous exam. Paranasal sinuses and mastoid air cells are otherwise clear. SOFT TISSUES/SKULL: The calvarium is intact. Extracranial soft tissues are unremarkable. IMPRESSION: No acute intracranial abnormality. [facility] Work Phone: Radiology Study observation (narrative) [employer] Phone: CT Head WO ContrastOrdered B y: Ajay Aggarwal on 04-19-2022 [employer] Work Phone: Laboratory - Chemistry and C hemistry - challengeon 04-19-2022 GFR/1.73 sq M.predicted MDRD (S/P/Bld) [Vol rate/Area] [facility] Comment on above: Average GFR for 40-4 9 years old: 99 mL/min/1.73sq m Chronic Kidney Disease: <60 mL/min/1.73sq m Kidney failure: <15 mL/min/1.73sq m eGFR calculated using average adult body mass. Additional eGFR calculator available at: http://www.Balls.ie.StyleCaster/multiple_crcl_2011.htm Stage 1: Some kidney damage normal GFR Stage 2: Mild kidney damage GFR 60-89 Stage 3: Moderate kidney damage GFR 30-59 Stage 4: Severe kidney damage GFR 15-29 Stage 5: Severe kidney damage GFR <15 ESRD - chronic treatment by dialysis or transplant Protime-INRon 04-19-2022 INR Coag (Bld) [Relative time] 1.0 {INR} [facility] Comment on above: Non-therapeutic Range: INR = 0.9-1.2 Therapeutic Range: Moderate Anticoagulant Intensity: INR = 2.0-3.0 High Anticoagulant Intensity: INR = 2.5-3.5 PT Coag (PPP) [Time] 13.4 s [facility] Troponinon 04-19-2022 Troponin, High Sensitivity 18 ng/L 0 - 22 ng /L [facility] Comment on above: High Sensitivity Troponin values cannot be compared with other Troponin methodologies. Patients with high levels of Biotin oral intake (i.e >5mg/day) may have falsely decreased Troponin levels. Samples collected within 8 hours of biotin intake may require additional information for diagnosis. [facility] CBC with Diffon 04-05-2022 Abs. Basophil 0.05 k/uL Normal 0.00-0.20 [facility] Comment on above: Performed By: #### A BG #### [facility] [address] [place] [address] [place] [address] Windows Technical Specialist: Ramiro Santillan MD Abs.Imm.Granulocyte <0.03 Normal 0.00-0.30 [facility] Comment on above: Performed By: #### A BG #### [facility] [address] [place] [address] [place] [address] [employer] Technical Specialist: Ramiro Santillan MD Abs.Neutrophil (Seg) 7.18 k/uL Normal 1.50-8.10 [facility] Comment on above: Performed By: #### A BG #### [address] [place] [address] Windows Technical Specialist: Ramiro Santillan MD Basophils/100 WBC (Bld) 1 % Normal 0-2 [facility] Comment on above: Performed By: #### A BG #### [facility] [address] [place] [address] [place] [address] [employer] Technical Specialist: Ramiro Santillan MD Eosinophils (Bld) [#/Vol] 0.08 10*3/uL Normal 0.00-0.4 4 [facility] Comment on above: Performed By: #### A BG #### [facility] [address] [place] [address] Dr. [place], [place] [id number] Windows Technical Specialist: Ramiro Santillan MD Eosinophils/100 WBC (Bld) 1 % Normal 1-4 [facility] Comment on above: Performed By: #### A BG #### [facility] [address] [place] [address] Dr. [place], [place] [phone] Windows Technical Specialist: Ramiro Santillan MD Erythrocyte distribution width (RBC) [Ratio] 13.8 % Normal 11.8-14.4 [facility] Comment on above: Performed By: #### A BG #### [facility] [address] [place] [address] Dr. [place], [place] [phone] Windows Technical Specialist: Ramiro Santillan MD Hematocrit (Bld) [Volume fraction] 44.8 % Normal 40.7-50.3 [facility] Comment on above: Performed By: #### A BG #### [facility] [address] [place] [address] Dr. [place], [facility]83 Windows Technical Specialist: Ramiro Santillan MD Hemoglobin (Bld) [Mass/Vol] 15.0 g/dL Normal 13.0-17. 0 [facility] Comment on above: Performed By: #### A BG #### [address] [place], [place] [phone] Windows Technical Specialist: Ramiro Santillan MD Immature granulocytes/100 WBC (Bld) 0 % Normal 0 [facility] Comment on above: Performed By: #### A BG #### [facility] [address] [place] [address] Dr. [place], [facility]83 Windows Technical Specialist: Ramiro Santillan MD Lymphocytes (Bld) [#/Vol] 1.53 10*3/uL Normal 1.10-3.7 0 [facility] Comment on above: Performed By: #### A BG #### [address] [place], [place] [phone] Windows Technical Specialist: Ramiro Santillan MD Lymphocytes/100 WBC (Bld) 16 % Low 24-43 [facility] Comment on above: Performed By: #### A BG #### [facility] [address] [place], [place] [phone] Windows Technical Specialist: Ramiro Santillan MD MCH (RBC) [Entitic mass] 27.9 pg Normal 25.2-33.5 [facility] Comment on above: Performed By: #### A BG #### [facility] [address] [place], [facility]83 [employer] Technical Specialist: Ramiro Santillan MD MCHC (RBC) [Mass/Vol] 33.5 g/dL Normal 28.4-34.8 [facility] Comment on above: Performed By: #### A BG #### [address] [place], [place] [id number] Windows Technical Specialist: Ramiro aSntillan MD MCV (RBC) [Entitic vol] 83.4 fL Normal 82.6-102.9 [facility] Comment on above: Performed By: #### A BG #### [facility] [address] [place], [place] [phone] Windows Technical Specialist: Ramiro Santillan MD Monocytes (Bld) [#/Vol] 0.58 10*3/uL Normal 0.10-1.20 [facility] Comment on above: Performed By: #### A BG #### [facility] [address] [place], [facility]83 [employer] Technical Specialist: Ramiro Santillan MD Monocytes/100 WBC (Bld) 6 % Normal 3-12 [facility] Comment on above: Performed By: #### A BG #### [facility] [address] [place], [place] [phone] Windows Technical Specialist: Ramiro Santillan MD Neutrophil (Seg) 76 % High 36-65 [facility] Comment on above: Performed By: #### A BG #### [facility] [address] [place] [address] Windows Technical Specialist: Ramiro Santillan MD NRBC Automated 0.0 per 100 WBC Normal 0.0 [facility] Comment on above: Performed By: #### A BG #### [facility] [address] [place] [address] Dr. [place], [place] [phone] [employer] Technical Specialist: Ramiro Santillan MD Platelet mean volume (Bld) [Entitic vol] 10.1 fL Normal 8.1-13.5 [facility] Comment on above: Performed By: #### A BG #### [facility] [address] [place] [address] Windows Technical Specialist: Ramiro Santillan MD Platelets (Bld) [#/Vol] 208 10*3/uL Normal 138-453 [facility] Comment on above: Performed By: #### A BG #### [address] [place] [address] [employer] Technical Specialist: Ramiro Santillan MD RBC (Bld) [#/Vol] 5.37 10*6/uL Normal 4.21-5.77 [facility] Comment on above: Performed By: #### A BG #### [address] [place] [address] Windows Technical Specialist: Ramiro Santillan MD WBC (Bld) [#/Vol] 9.4 10*3/uL Normal 3.5-11.3 [facility] Comment on above: Performed By: #### A BG #### [address] [place] [address] [employer] Technical Specialist: Ramiro Santillan MD CT HEAD WO CONTRASTon 2021 CT HEAD WO CONTRAST EXAMINATION: CT OF THE HEAD WITHOUT CONTRAST 04/04/2022 10:23 pm TECHNIQUE: CT of the head was performed without the administration of intravenous contrast. Automated exposure control, iterative reconstruction, and/or weight based adjustment of the mA/kV was utilized to reduce the radiation dose to as low as reasonably achievable. COMPARISON: None. HISTORY: ORDERING SYSTEM PROVIDED HISTORY: Concern for SAH TECHNOLOGIST PROVIDED HISTORY: Concern for SAH Decision Support Exception - unselect if not a suspected or confirmed emergency medical condition->Emergen cy Medical Condition (MA) FINDINGS: BRAIN/VENTRICLES: There is no acute intracranial hemorrhage, mass effect or midline shift. No abnormal extra-axial fluid collection. The winkler-white differentiation is maintained without evidence of an acute infarct. There is no evidence of hydrocephalus. ORBITS: The visualized portion of the orbits demonstrate no acute abnormality. SINUSES: Partially opacified right sphenoid sinus with findings of chronicity. SOFT TISSUES/SKULL: No acute abnormality of the visualized skull or soft tissues. IMPRESSION: No acute intracranial abnormality. 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 Interpreted by: Faustino Milan MD Signed by: Faustino Milan MD 04/04/22 Final result Normal [facility] Comp Metabolic Pr/rfx MGon 0 04-05-2022 (cont.) Normal [facility] Comment on above: Result Comment: Aver age GFR for 40-49 years old: 99 mL/min/1.73sq m Chronic Kidney Disease: <60 mL/min/1.73sq m Kidney failure: <15 mL/min/1.73sq m eGFR calculated using average adult body mass. Additional eGFR calculator available at: http://www.Balls.ie.StyleCaster/multiple_crcl_2012.htm Performed By: #### A BG #### [facility] [address] [place] [address] [place] [address] [employer] Technical Specialist: Ramiro Santillan MD Albumin [Mass/Vol] 4.4 g/dL Normal 3.5-5.2 [facility] Comment on above: Performed By: #### A BG #### [facility] [address] [place] [address] Windows Technical Specialist: Ramiro Santillan MD Albumin/Glob Ratio 1.4 Normal 1.0-2.5 [facility] Comment on above: Performed By: #### A BG #### [facility] [address] [place] [address] Windows Technical Specialist: Ramiro Santillan MD Alkaline Phos 108 U/L Normal 40-129 [facility] Comment on above: Performed By: #### A BG #### [facility] [address] [place], [place] [phone] Windows Technical Specialist: Ramiro Santillan MD ALT [Catalytic activity/Vol] 24 U/L Normal 5-41 [facility] Comment on above: Performed By: #### A BG #### [facility] [address] [place], [place] [id number] Windows Technical Specialist: Ramiro Santillan MD Anion gap [Moles/Vol] 12 mmol/L Normal 9-17 [facility] Comment on above: Performed By: #### A BG #### [facility] [address] [place], [place] [phone] Windows Technical Specialist: Ramiro Santillan MD AST [Catalytic activity/Vol] 21 U/L Normal <40 [facility] Comment on above: Performed By: #### A BG #### [facility] [address] [place], [place] [phone] Windows Technical Specialist: Ramiro Santillan MD Bilirubin [Mass/Vol] 0.17 mg/dL Low 0.3-1.2 [facility] Comment on above: Performed By: #### A BG #### [facility] [address] [place], [place] [phone] Windows Technical Specialist: Ramiro Santillan MD BUN/CRE Ratio 18 Normal 9-20 [facility] Comment on above: Performed By: #### A BG #### [facility] [address] [place], [place] [phone] Windows Technical Specialist: Ramiro Santillan MD Calcium [Mass/Vol] 9.6 mg/dL Normal 8.6-10.4 [facility] Comment on above: Performed By: #### A BG #### [facility] [address] [place], [place] [phone] Windows Technical Specialist: Ramiro Santillan MD Chloride [Moles/Vol] 98 mmol/L Normal 98-107 [facility] Comment on above: Performed By: #### A BG #### [facility] [address] [place], [place] 1956183 Windows Technical Specialist: Ramiro Santillan MD CO2 [Moles/Vol] 24 mmol/L Normal 20-31 [facility] Comment on above: Performed By: #### A BG #### [facility] [address] [place], [place] 0[address]83 Windows Technical Specialist: Ramiro Santillan MD Creatinine [Mass/Vol] 1.36 mg/dL High 0.70-1.20 [facility] Comment on above: Performed By: #### A BG #### [facility] [address] [place], [place] [phone] Windows Technical Specialist: Ramiro Santillan MD GFR, Amer >60 Normal >60 [facility] Comment on above: Performed By: #### A BG #### [facility] [address] [place], [place] [phone] Windows Technical Specialist: Ramiro Santillan MD GFR,non Amer 56 mL/min Low >60 [facility] Comment on above: Performed By: #### A BG #### [facility] [address] [place], [place] [phone] Windows Technical Specialist: Ramiro Santillan MD Glucose [Mass/Vol] 270 mg/dL High 70-99 [facility] Comment on above: Performed By: #### A BG #### [facility] [address] [place], [place] [phone] Windows Technical Specialist: Ramiro Santillan MD Potassium [Moles/Vol] 4.0 mmol/L Normal 3.7-5.3 [facility] Comment on above: Performed By: #### A BG #### [facility] [address] [place], [place] [phone] Windows Technical Specialist: Ramiro Santillan MD Protein [Mass/Vol] 7.5 g/dL Normal 6.4-8.3 [facility] Comment on above: Performed By: #### A BG #### [facility] [address] [place], [place] [phone] Windows Technical Specialist: Ramiro Santillan MD Sodium [Moles/Vol] 134 mmol/L Low 135-144 [facility] Comment on above: Performed By: #### A BG #### [facility] [address] [place] [address] [employer] Technical Specialist: Ramiro Santillan MD Staging: Normal [facility] Comment on above: Result Comment: Stag e 1: Some kidney damage normal GFR Stage 2: Mild kidney damage GFR 60-89 Stage 3: Moderate kidney damage GFR 30-59 Stage 4: Severe kidney damage GFR 15-29 Stage 5: Severe kidney damage GFR <15 ESRD - chronic treatment by dialysis or transplant Performed By: #### A BG #### [facility] [address] [place] [address] [employer] Technical Specialist: Ramiro Santillan MD Urea nitrogen [Mass/Vol] 24 mg/dL High 6-20 [facility] Comment on above: Performed By: #### A BG #### [facility] [address] [place] [address] [employer] Technical Specialist: Ramiro Santillan MD CBC with Auto Differentialon 04-04-2022 Absolute Eos # 0.08 [facility] Absolute Immature Granulocyte <0.03 [facility] Absolute Lymph # 1.53 [facility] Absolute Meagher # 0.58 [facility] Basophils (Bld) [#/Vol] 0.05 10*3/uL [facility] Basophils/100 WBC (Bld) 1 % 0 - 2 % B [facility] Eosinophils/100 WBC (Bld) 1 % 1 - 4 % [facility] Hematocrit (Bld) [Volume fraction] 44.8 % 40.7 - 50.3 % [facility] Hemoglobin (Bld) [Mass/Vol] 15.0 g/dL 13.0 - 17.0 g/dL [facility] Immature granulocytes/100 WBC (Bld) 0 % 0 [facility] Interpretation and review of laboratory results Abnormal [facility] Lymphocytes/100 WBC (Bld) 16 % Low 24 - 43 % [facility] MCH (RBC) [Entitic mass] 27.9 pg 25. 2 - 33.5 pg [facility] MCHC (RBC) [Mass/Vol] 33.5 g/dL 28.4 - 34.8 g/dL [facility] MCV (RBC) [Entitic vol] 83.4 fL 82.6 - 102.9 fL [facility] Monocytes/100 WBC (Bld) 6 % 3 - 12 % B [facility] NRBC Automated 0.0 0.0 per 100 WBC [facility] Platelet distribution width (Bld) [Ratio] 13.8 % 11.8 - 14.4 % [facility] Platelet mean volume (Bld) [Entitic vol] 10.1 fL 8.1 - 13.5 fL [facility] Platelets (Bld) [#/Vol] 208 10*3/uL [facility] RBC (Bld) [#/Vol] 5.37 10*6/uL 4.21 - 5.7 7 m/uL [facility] Segmented neutrophils/100 WBC (Bld) 76 % High 36 - 65 % [facility] Segs Absolute 7.18 [facility] WBC (Bld) [#/Vol] 9.4 10*3/uL [facility] CT Head WO Contraston 2021 No acute intracranial abnormality. 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 [facility] RIS CONSOLIDATED EXAMINATION: CT OF THE HEAD WITHOUT CONTRAST 04/04/2022 10:23 pm TECHNIQUE: CT of the head was performed without the administration of intravenous contrast. Automated exposure control, iterative reconstruction, and/or weight based adjustment of the mA/kV was utilized to reduce the radiation dose to as low as reasonably achievable. COMPARISON: None. HISTORY: ORDERING SYSTEM PROVIDED HISTORY: Concern for SAH TECHNOLOGIST PROVIDED HISTORY: Concern for SAH Decision Support Exception - unselect if not a suspected or confirmed emergency medical condition->Emergen cy Medical Condition (MA) FINDINGS: BRAIN/VENTRICLES: There is no acute intracranial hemorrhage, mass effect or midline shift. No abnormal extra-axial fluid collection. The winkler-white differentiation is maintained without evidence of an acute infarct. There is no evidence of hydrocephalus. ORBITS: The visualized portion of the orbits demonstrate no acute abnormality. SINUSES: Partially opacified right sphenoid sinus with findings of chronicity. SOFT TISSUES/SKULL: No acute abnormality of the visualized skull or soft tissues. [facility] Faustino Martin MD - 04/04/2022 EXAMINATION: CT OF THE HEAD WITHOUT CONTRAST 04/04/2022 10:23 pm TECHNIQUE: CT of the head was performed without the administration of intravenous contrast. Automated exposure control, iterative reconstruction, and/or weight based adjustment of the mA/kV was utilized to reduce the radiation dose to as low as reasonably achievable. COMPARISON: None. HISTORY: ORDERING SYSTEM PROVIDED HISTORY: Concern for SAH TECHNOLOGIST PROVIDED HISTORY: Concern for SAH Decision Support Exception - unselect if not a suspected or confirmed emergency medical condition->Emergen cy Medical Condition (MA) FINDINGS: BRAIN/VENTRICLES: There is no acute intracranial hemorrhage, mass effect or midline shift. No abnormal extra-axial fluid collection. The winlker-white differentiation is maintained without evidence of an acute infarct. There is no evidence of hydrocephalus. ORBITS: The visualized portion of the orbits demonstrate no acute abnormality. SINUSES: Partially opacified right sphenoid sinus with findings of chronicity. SOFT TISSUES/SKULL: No acute abnormality of the visualized skull or soft tissues. IMPRESSION: No acute intracranial abnormality. 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 [employer] Phone: Radiology Study observation (narrative) [employer] Phone: CT Head WO ContrastOrdered B y: Faustino Milan on 04-04-2022 [employer] Phone: Comprehensive Metabolic Pane l w/ Reflex to MGon 04-04-2022 Albumin [Mass/Vol] 4.4 g/dL 3.5 - 5.2 g/dL [facility] Albumin/Globulin [Mass ratio] 1.4 {ratio} [facility] ALP (Bld) [Catalytic activity/Vol] 108 U/L 40 - 129 U/L [facility] ALT [Catalytic activity/Vol] 24 U/L 5 - 41 U/L [facility] Anion gap [Moles/Vol] 12 mmol/L 9 - 17 mmol/L [facility] AST [Catalytic activity/Vol] 21 U/L <40 [facility] Bilirubin [Mass/Vol] 0.17 mg/dL Low 0.3 - 1 .2 mg/dL [facility] Calcium [Mass/Vol] 9.6 mg/dL 8.6 - 10. 4 mg/dL [facility] Chloride [Moles/Vol] 98 mmol/L 98 - 10 7 mmol/L [facility] CO2 [Moles/Vol] 24 mmol/L 20 - 31 mmol/L [facility] Creatinine [Mass/Vol] 1.36 mg/dL High 0.70 - 1.20 mg/dL [facility] Free PSA/Total PSA [Mass fraction] 7.5 g/dL 6.4 - 8.3 g/dL [facility] GFR >60 >60 mL/min [facility] GFR Non- 56 mL/min Low >60 [facility] Glucose [Mass/Vol] 270 mg/dL High 70 - 99 mg/dL [facility] Interpretation and review of laboratory results Abnormal [facility] Potassium [Moles/Vol] 4.0 mmol/L 3.7 - 5.3 mmol/L [facility] Sodium [Moles/Vol] 134 mmol/L Low 135 - 144 mmol/L [facility] Urea nitrogen (BldV) [Mass/Vol] 24 mg/dL High 6 - 20 mg/dL [facility] Urea nitrogen/Creatinine (Bld) [Mass ratio] 18 [facility] Glucose, Whole Bloodon 04-04 Glucose [Mass/Vol] 256 mg/dL High 74 - 100 mg/dL [facility] Interpretation and review of laboratory results Abnormal [facility] Laboratory - Chemistry and C hemistry - challengeon 04-04-2022 GFR/1.73 sq M.predicted MDRD (S/P/Bld) [Vol rate/Area] [facility] Comment on above: Average GFR for 40-4 9 years old: 99 mL/min/1.73sq m Chronic Kidney Disease: <60 mL/min/1.73sq m Kidney failure: <15 mL/min/1.73sq m eGFR calculated using average adult body mass. Additional eGFR calculator available at: http://www.ScoreStreak/multiple_crcl_2012.htm Stage 1: Some kidney damage normal GFR Stage 2: Mild kidney damage GFR 60-89 Stage 3: Moderate kidney damage GFR 30-59 Stage 4: Severe kidney damage GFR 15-29 Stage 5: Severe kidney damage GFR <15 ESRD - chronic treatment by dialysis or transplant Cult,Mycobacteriaon 12-14-19 Cult,Mycobacteria Specimen Description .HIP, JOINT Direct Exam NO ACID FAST BACILLI SEEN (DIRECT SMEAR) Culture NO GROWTH 45 DAYS Report Status FINAL 12/14/2021 [facility] Comment on above: Performed By: #### L IPR #### [facility] [address] [place] [address] [employer] Technical Specialist: Ramiro Mark MD Cult,Aerobe/Anaerobeon 11-04 Cult,Aerobe/Anaerobe Specimen Description .SYNOVIAL FLUID Special Requests NOT REPORTED Direct Exam NO NEUTROPHILS SEEN NO ORGANISMS SEEN Culture NO GROWTH 5 DAYS Report Status FINAL 11/04/2021 [facility] Comment on above: Performed By: #### F LUAD #### [facility] [address] [place] [address] [employer] Technical Specialist: Ramiro Santillan MD Basic Metabolic Profon 11-02 (cont.) [facility] Comment on above: Result Comment: Aver age GFR for 40-49 years old: 99 mL/min/1.73sq m Chronic Kidney Disease: <60 mL/min/1.73sq m Kidney failure: <15 mL/min/1.73sq m eGFR calculated using average adult body mass. Additional eGFR calculator available at: http://www.Balls.ie.StyleCaster/multiple_crcl_2012.htm Performed By: #### L IPR #### [facility] [address] [place] [address] [employer] Technical Specialist: Ramiro Mark MD Anion gap [Moles/Vol] 11 mmol/L Normal 9-17 [facility] Comment on above: Performed By: #### L IPR #### [address] [address] [employer] Technical Specialist: Ramiro Mark MD BUN/CRE Ratio 14 Normal 9-20 [facility] Comment on above: Performed By: #### L IPR #### [address] [address] [employer] Technical Specialist: Ramiro Mark MD Calcium [Mass/Vol] 8.3 mg/dL Low 8.6-10.4 [facility] Comment on above: Performed By: #### L IPR #### [address] [address] [employer] Technical Specialist: Ramiro Mark MD Chloride [Moles/Vol] 96 mmol/L Low 98-107 [facility] Comment on above: Performed By: #### L IPR #### [address] [address] [employer] Technical Specialist: Ramiro Mark MD CO2 [Moles/Vol] 27 mmol/L Normal 20-31 [facility] Comment on above: Performed By: #### L IPR #### [address] [address] [employer] Technical Specialist: Ramiro Mark MD Creatinine [Mass/Vol] 0.78 mg/dL Normal 0.70-1.20 [facility] Comment on above: Performed By: #### L IPR #### [address] [address] [employer] Technical Specialist: Ramiro Mark MD GFR, Amer >60 Normal >60 [facility] Comment on above: Performed By: #### L IPR #### [address] [place] [address] [employer] Technical Specialist: Ramiro Mark MD GFR,non Amer >60 Normal >60 [facility] Comment on above: Performed By: #### L IPR #### [address] [address] [employer] Technical Specialist: Ramiro Mark MD Glucose [Mass/Vol] 118 mg/dL High 70-99 [facility] Comment on above: Performed By: #### L IPR #### [address] [address] [employer] Specialist: Ramiro Mark MD Potassium [Moles/Vol] 3.4 mmol/L Low 3.7-5.3 [facility] Comment on above: Performed By: #### L IPR #### [address] [address] [employer] Technical Specialist: Ramiro Mark MD Sodium [Moles/Vol] 134 mmol/L Low 135-144 [facility] Comment on above: Performed By: #### L IPR #### [address] [address] [employer] Technical Specialist: Ramiro Mark MD Staging: Normal [facility] Comment on above: Result Comment: Stag e 1: Some kidney damage normal GFR Stage 2: Mild kidney damage GFR 60-89 Stage 3: Moderate kidney damage GFR 30-59 Stage 4: Severe kidney damage GFR 15-29 Stage 5: Severe kidney damage GFR <15 ESRD - chronic treatment by dialysis or transplant Performed By: #### L IPR #### [address] [address] [employer] Specialist: Ramiro Mark MD Urea nitrogen [Mass/Vol] 11 mg/dL Normal 6-20 [facility] Comment on above: Performed By: #### L IPR #### [address] [address] [employer] Specialist: Ramiro Mark MD CBC with Diffon 11-02-2021 Abs. Basophil 0.00 k/uL Normal 0.0-0.2 [facility] Comment on above: Performed By: #### L IPR #### [address] [address] [employer] Technical Specialist: Ramiro Mark MD Abs.Imm.Granulocyte 0.00 k/uL Normal 0.00-0.30 [facility] Comment on above: Performed By: #### L IPR #### [address] [address] [employer] Technical Specialist: Ramiro Mark MD Abs.Neutrophil (Seg) 8.93 k/uL High 1.50-8.10 [facility] Comment on above: Performed By: #### L IPR #### [address] [address] [employer] Specialist: Ramiro Mark MD Basophils/100 WBC (Bld) 0 % Normal 0-2 [facility] Comment on above: Performed By: #### L IPR #### [address] [address] [employer] Technical Specialist: Ramiro Mark MD Eosinophils (Bld) [#/Vol] 0.00 10*3/uL Normal 0.00-0.4 4 [facility] Comment on above: Performed By: #### L IPR #### [address] [address] [employer] Specialist: Ramiro Mark MD Eosinophils/100 WBC (Bld) 0 % Low 1-4 [facility] Comment on above: Performed By: #### L IPR #### [address] [address] [employer] Technical Specialist: Ramiro Mark MD Immature granulocytes/100 WBC (Bld) 0 % Normal 0 [facility] Comment on above: Performed By: #### L IPR #### [address] [place] [address] [employer] Technical Specialist: Ramiro Mark MD Lymphocytes (Bld) [#/Vol] 1.49 10*3/uL Normal 1.10-3.7 0 [facility] Comment on above: Performed By: #### L IPR #### [address] [address] [employer] Technical Specialist: Ramiro Mark MD Lymphocytes/100 WBC (Bld) 12 % Low 24-43 [facility] Comment on above: Performed By: #### L IPR #### [address] [address] [employer] Specialist: Ramiro Mark MD Monocytes (Bld) [#/Vol] 1.98 10*3/uL High 0.10-1.20 [facility] Comment on above: Performed By: #### L IPR #### [address] [address] [employer] Specialist: Ramiro Mark MD Monocytes/100 WBC (Bld) 16 % High 3-12 [facility] Comment on above: Performed By: #### L IPR #### [address] [address] [employer] Specialist: Ramiro Mark MD Morphology Everardo (Bld) [Interp] Normal Normal [facility] Comment on above: Performed By: #### L IPR #### [address] [address] [employer] Specialist: Ramiro Mark MD Neutrophil (Seg) 72 % High 36-65 [facility] Comment on above: Performed By: #### L IPR #### [address] [address] [employer] Technical Specialist: Ramiro Mark MD Erythrocyte distribution width (RBC) [Ratio] 13.6 % Normal 11.8-14.4 [facility] Comment on above: Performed By: #### L IPR #### [address] [address] [employer] Specialist: Ramiro Mark MD Hematocrit (Bld) [Volume fraction] 33.2 % Low 40.7-50.3 [facility] Comment on above: Performed By: #### L IPR #### [address] [address] [employer] Specialist: Ramiro Mark MD Hemoglobin (Bld) [Mass/Vol] 11.2 g/dL Low 13.0-17. 0 [facility] Comment on above: Performed By: #### L IPR #### [address] [address] [employer] Specialist: Ramiro Mark MD MCH (RBC) [Entitic mass] 28.7 pg Normal 25.2-33.5 [facility] Comment on above: Performed By: #### L IPR #### [address] [address] [employer] Technical Specialist: Ramiro Mark MD MCHC (RBC) [Mass/Vol] 33.7 g/dL Normal 28.4-34.8 [facility] Comment on above: Performed By: #### L IPR #### [address] [address] [employer] Specialist: Ramiro Mark MD MCV (RBC) [Entitic vol] 85.1 fL Normal 82.6-102.9 [facility] Comment on above: Performed By: #### L IPR #### [address] [address] [employer] Specialist: Ramiro Mark MD NRBC Automated 0.0 per 100 WBC Normal 0.0 [facility] Comment on above: Performed By: #### L IPR #### [address] [address] [employer] Specialist: Ramiro Mark MD Platelet mean volume (Bld) [Entitic vol] 9.2 fL Normal 8.1-13.5 [facility] Comment on above: Performed By: #### L IPR #### [address] [place] [address] [employer] Specialist: Ramiro Mark MD Platelets (Bld) [#/Vol] 352 10*3/uL Normal 138-453 [facility] Comment on above: Performed By: #### L IPR #### [address] [address] [employer] Specialist: Ramiro Mark MD RBC (Bld) [#/Vol] 3.90 10*6/uL Low 4.21-5.77 [facility] Comment on above: Performed By: #### L IPR #### [address] [address] [employer] Specialist: Ramiro Mark MD WBC (Bld) [#/Vol] 12.4 10*3/uL High 3.5-11.3 [facility] Comment on above: Performed By: #### L IPR #### [address] [address] [employer] Specialist: Ramiro Mark MD Auto Diff Performed NOT REPORTED Normal [facility] Comment on above: Performed By: #### L IPR #### [address] [address] [employer] Specialist: Ramiro Mark MD Platelet Comment NOT REPORTED Normal [facility] Comment on above: Performed By: #### L IPR #### [address] [address] [employer] Specialist: Ramiro Mark MD RBC morphology finding Nom (Bld) NOT REPORTED Normal [facility] Comment on above: Performed By: #### L IPR #### [address] [address] [employer] Technical Specialist: Ramiro Mark MD WBC Morphology NOT REPORTED Normal [facility] Comment on above: Performed By: #### L IPR #### [facility] [address] [place], [place] 1804608 [employer] Technical Specialist: Ramiro Mark MD Basic Metabolic Profon 11-01 (cont.) Normal [facility] Comment on above: Result Comment: Aver age GFR for 40-49 years old: 99 mL/min/1.73sq m Chronic Kidney Disease: <60 mL/min/1.73sq m Kidney failure: <15 mL/min/1.73sq m eGFR calculated using average adult body mass. Additional eGFR calculator available at: http://www.ScoreStreak/multiple_crcl_2011.htm Performed By: #### A BG #### [facility] [address] [place] [address] [place] [address] [employer] Technical Specialist: Ramiro Santillan MD Anion gap [Moles/Vol] 11 mmol/L Normal 9-17 [facility] Comment on above: Performed By: #### A BG #### [facility] [address] [place] [address] [place] [address] [employer] Technical Specialist: Ramiro Santillan MD BUN/CRE Ratio 14 Normal 9-20 [facility] Comment on above: Performed By: #### A BG #### [facility] [address] [place] [address] [place] [address] [employer] Technical Specialist: Ramiro Santillan MD Calcium [Mass/Vol] 8.2 mg/dL Low 8.6-10.4 [facility] Comment on above: Performed By: #### A BG #### [facility] [address] [place] [address] [employer] Specialist: Ramiro Santillan MD Chloride [Moles/Vol] 93 mmol/L Low 98-107 [facility] Comment on above: Performed By: #### A BG #### [facility] [address] [place] [address] [employer] Specialist: Ramiro Santillan MD CO2 [Moles/Vol] 24 mmol/L Normal 20-31 [facility] Comment on above: Performed By: #### A BG #### [facility] [address] [place], [place] [phone] [employer] Specialist: Ramiro Santillan MD Creatinine [Mass/Vol] 0.80 mg/dL Normal 0.70-1.20 [facility] Comment on above: Performed By: #### A BG #### [facility] [address] [place], [place] 1067683 [employer] Specialist: Ramiro Santillan MD GFR, Amer >60 Normal >60 [facility] Comment on above: Performed By: #### A BG #### [facility] [address] [place], [place] 4561483 [employer] Specialist: Ramiro Santillan MD GFR,non Amer >60 Normal >60 [facility] Comment on above: Performed By: #### A BG #### [facility] [address] [place], [place] [phone] [employer] Technical Specialist: Ramiro Santillan MD Glucose [Mass/Vol] 282 mg/dL High 70-99 [facility] Comment on above: Performed By: #### A BG #### [facility] [address] [place], [place] 0453883 [employer] Specialist: Ramiro Santillan MD Potassium [Moles/Vol] 3.4 mmol/L Low 3.7-5.3 [facility] Comment on above: Performed By: #### A BG #### [facility] [address] [place], [place] 4013083 [employer] Specialist: Ramiro Santillan MD Sodium [Moles/Vol] 128 mmol/L Low 135-144 [facility] Comment on above: Performed By: #### A BG #### [facility] [address] [place], [place] 8056483 [employer] Specialist: Ramiro Santillan MD Staging: Normal [facility] Comment on above: Result Comment: Stag e 1: Some kidney damage normal GFR Stage 2: Mild kidney damage GFR 60-89 Stage 3: Moderate kidney damage GFR 30-59 Stage 4: Severe kidney damage GFR 15-29 Stage 5: Severe kidney damage GFR <15 ESRD - chronic treatment by dialysis or transplant Performed By: #### A BG #### [facility] [address] [place], [place] 5088383 [employer] Specialist: Ramiro Santillan MD Urea nitrogen [Mass/Vol] 11 mg/dL Normal 6-20 [facility] Comment on above: Performed By: #### A BG #### [facility] [address] [place], [place] 4945483 Windows Technical Specialist: Ramiro Santillan MD CBC with Diffon 11-01-2021 Abs. Basophil 0.14 k/uL Normal 0.0-0.2 [facility] Comment on above: Performed By: #### A BG #### [facility] [address] [place] [address] [address] [place], [place] 7574183 [employer] Specialist: Ramiro Santillan MD Abs.Imm.Granulocyte 0.00 k/uL Normal 0.00-0.30 [facility] Comment on above: Performed By: #### A BG #### [facility] [address] [place] [address] [address] [place], [place] [phone] [employer] Technical Specialist: Ramiro Santillan MD Abs.Neutrophil (Seg) 11.24 k/uL High 1.50-8.10 [facility] Comment on above: Performed By: #### A BG #### [facility] [address] [place], [place] 8[address]83 [employer] Specialist: Ramiro Santillan MD Basophils/100 WBC (Bld) 1 % Normal 0-2 [facility] Comment on above: Performed By: #### A BG #### [facility] [address] [place], [place] 63[address]83 [employer] Specialist: Ramiro Santillan MD Eosinophils (Bld) [#/Vol] 0.00 10*3/uL Normal 0.00-0.4 4 [facility] Comment on above: Performed By: #### A BG #### [facility] [address] [place], [place] 7709383 [employer] Technical Specialist: Ramiro Santillan MD Eosinophils/100 WBC (Bld) 0 % Low 1-4 [facility] Comment on above: Performed By: #### A BG #### [facility] [address] [place], [place] 1551183 [employer] Specialist: Ramiro Santillan MD Immature granulocytes/100 WBC (Bld) 0 % Normal 0 [facility] Comment on above: Performed By: #### A BG #### [facility] [address] [place], [place] 0241483 [employer] Specialist: Ramiro Santillan MD Lymphocytes (Bld) [#/Vol] 1.15 10*3/uL Normal 1.10-3.7 0 [facility] Comment on above: Performed By: #### A BG #### [facility] [address] [place], [place] [phone] [employer] Technical Specialist: Ramiro Santillan MD Lymphocytes/100 WBC (Bld) 8 % Low 24-43 [facility] Comment on above: Performed By: #### A BG #### [facility] [address] [place], [place] 4048383 [employer] Specialist: Ramiro Santillan MD Monocytes (Bld) [#/Vol] 1.87 10*3/uL High 0.10-1.20 [facility] Comment on above: Performed By: #### A BG #### [facility] [address] [place], [place] 1917683 Windows Technical Specialist: Ramiro Santillan MD Monocytes/100 WBC (Bld) 13 % High 3-12 [facility] Comment on above: Performed By: #### A BG #### [facility] [address] [place] [address] [place] [place], [place] 9288683 [employer] Specialist: Ramiro Santillan MD Morphology Everardo (Bld) [Interp] Normal Normal [facility] Comment on above: Performed By: #### A BG #### [address] [place], [place] 6186383 [employer] Technical Specialist: Ramiro Santillan MD Neutrophil (Seg) 78 % High 36-65 [facility] Comment on above: Performed By: #### A BG #### [address] [place], [place] [phone] [employer] Technical Specialist: Ramiro Santillan MD Erythrocyte distribution width (RBC) [Ratio] 13.6 % Normal 11.8-14.4 [facility] Comment on above: Performed By: #### A BG #### [address] [place], [place] 1232183 [employer] Specialist: Ramiro Santillan MD Hematocrit (Bld) [Volume fraction] 33.8 % Low 40.7-50.3 [facility] Comment on above: Performed By: #### A BG #### [address] [place], [place] 9748983 [employer] Specialist: Ramiro Santillan MD Hemoglobin (Bld) [Mass/Vol] 11.9 g/dL Low 13.0-17. 0 [facility] Comment on above: Performed By: #### A BG #### [address] [place], [place] 0450783 [employer] Technical Specialist: Ramiro Santillan MD MCH (RBC) [Entitic mass] 29.7 pg Normal 25.2-33.5 [facility] Comment on above: Performed By: #### A BG #### [address] [place] [address] Windows Technical Specialist: Ramiro Santillna MD MCHC (RBC) [Mass/Vol] 35.2 g/dL High 28.4-34.8 [facility] Comment on above: Performed By: #### A BG #### [address] [place], [facility]83 [employer] Specialist: Ramiro Santillan MD MCV (RBC) [Entitic vol] 84.3 fL Normal 82.6-102.9 [facility] Comment on above: Performed By: #### A BG #### [address] [place], [facility]83 [employer] Specialist: Ramiro Santillan MD NRBC Automated 0.0 per 100 WBC Normal 0.0 [facility] Comment on above: Performed By: #### A BG #### [address] [place] [address] [employer] Technical Specialist: Ramiro Santillan MD Platelet mean volume (Bld) [Entitic vol] 9.5 fL Normal 8.1-13.5 [facility] Comment on above: Performed By: #### A BG #### [address] [place], [facility]83 [employer] Specialist: Ramiro Santillan MD Platelets (Bld) [#/Vol] 277 10*3/uL Normal 138-453 [facility] Comment on above: Performed By: #### A BG #### [address] [place], [place] [address] Windows Technical Specialist: Ramiro Santillan MD RBC (Bld) [#/Vol] 4.01 10*6/uL Low 4.21-5.77 [facility] Comment on above: Performed By: #### A BG #### [address] [place] [address] [employer] Technical Specialist: Ramiro Santillan MD WBC (Bld) [#/Vol] 14.4 10*3/uL High 3.5-11.3 [facility] Comment on above: Performed By: #### A BG #### [facility] [address] [place], [place] 9931983 Windows Technical Specialist: Ramiro Santillan MD Auto Diff Performed NOT REPORTED Normal [facility] Comment on above: Performed By: #### A BG #### [facility] [address] [place], [place] [phone] Windows Technical Specialist: Ramiro Santillan MD Platelet Comment NOT REPORTED Normal [facility] Comment on above: Performed By: #### A BG #### [facility] [address] [place] [address] [employer] Technical Specialist: Ramiro Santillan MD RBC morphology finding Nom (Bld) NOT REPORTED Normal [facility] Comment on above: Performed By: #### A BG #### [address] [place], [place] 7461283 [employer] Technical Specialist: Ramiro Santillan MD WBC Morphology NOT REPORTED Normal [facility] Comment on above: Performed By: #### A BG #### [facility] [address] [place] [address] [place] [place], [place] [phone] [employer] Technical Specialist: Ramiro Santillan MD Basic Metabolic Profon 10-31 (cont.) Normal [facility] Comment on above: Result Comment: Aver age GFR for 40-49 years old: 99 mL/min/1.73sq m Chronic Kidney Disease: <60 mL/min/1.73sq m Kidney failure: <15 mL/min/1.73sq m eGFR calculated using average adult body mass. Additional eGFR calculator available at: http://www.Balls.ie.com/multiple_crcl_2012.htm Performed By: #### C SRI CMPX #### [facility] [address] [place] [address] [employer] Technical Specialist: Ramiro Santillan MD Anion gap [Moles/Vol] 13 mmol/L Normal 9-17 [facility] Comment on above: Performed By: #### C DP, CMPX #### [facility] [address] [place] [address] [employer] Technical Specialist: Ramiro Santillan MD BUN/CRE Ratio 14 Normal 9-20 [facility] Comment on above: Performed By: #### C DP, CMPX #### [facility] [address] [place], [place] 9739583 [employer] Technical Specialist: Ramiro Santillan MD Calcium [Mass/Vol] 8.2 mg/dL Low 8.6-10.4 [facility] Comment on above: Performed By: #### C DP, CMPX #### [facility] [address] [place], [place] [phone] [employer] Technical Specialist: Ramiro Santillan MD Chloride [Moles/Vol] 95 mmol/L Low 98-107 [facility] Comment on above: Performed By: #### C DP, CMPX #### [facility] [address] [place], [place] 0779983 [employer] Specialist: Ramiro Santillan MD CO2 [Moles/Vol] 24 mmol/L Normal 20-31 [facility] Comment on above: Performed By: #### C DP, CMPX #### [facility] [address] [place] [address] [address] [place], [place] 2293483 [employer] Specialist: Ramiro Santillan MD Creatinine [Mass/Vol] 0.79 mg/dL Normal 0.70-1.20 [facility] Comment on above: Performed By: #### C DP, CMPX #### [facility] [address] [place], [place] 5664183 Windows Technical Specialist: Ramiro Santillan MD GFR, Amer >60 Normal >60 [facility] Comment on above: Performed By: #### C DP, CMPX #### [facility] [address] [place], [place] 3855583 [employer] Technical Specialist: Ramiro Santillan MD GFR,non Amer >60 Normal >60 [facility] Comment on above: Performed By: #### C DP, CMPX #### [facility] [address] [place], [place] 4137483 Windows Technical Specialist: Ramiro Santillan MD Glucose [Mass/Vol] 251 mg/dL High 70-99 [facility] Comment on above: Performed By: #### C DP, CMPX #### [facility] [address] [place], [place] 5369383 Windows Technical Specialist: Ramiro Santillan MD Potassium [Moles/Vol] 3.2 mmol/L Low 3.7-5.3 [facility] Comment on above: Performed By: #### C DP, CMPX #### [facility] [address] [place], [place] 2603883 Windows Technical Specialist: Ramiro Santillan MD Sodium [Moles/Vol] 132 mmol/L Low 135-144 [facility] Comment on above: Performed By: #### C DP, CMPX #### [facility] [address] [place] [address] [place] [place], [place] 4036583 [employer] Technical Specialist: Ramiro Santillan MD Staging: Normal [facility] Comment on above: Result Comment: Stag e 1: Some kidney damage normal GFR Stage 2: Mild kidney damage GFR 60-89 Stage 3: Moderate kidney damage GFR 30-59 Stage 4: Severe kidney damage GFR 15-29 Stage 5: Severe kidney damage GFR <15 ESRD - chronic treatment by dialysis or transplant Performed By: #### C DP, CMPX #### [facility] [address] [place] [address] [employer] Specialist: Ramiro Santillan MD Urea nitrogen [Mass/Vol] 11 mg/dL Normal 6-20 [facility] Comment on above: Performed By: #### C DP, CMPX #### [facility] [address] [place], [place] 8550983 [employer] Specialist: Ramiro Santillan MD C-Reactive Proteinon 01-15-2 022 CRP [Mass/Vol] 198.9 mg/L High 0.0-5.0 [facility] Comment on above: Performed By: #### B C #### [facility] [address] [place], [place] 3068[address] Windows Technical Specialist: Ramiro Mark MD [facility] [address] [place] [address] [place] [address] [employer] Technical Specialist: Ramiro Santillan MD CBC with Diffon 10-31-2021 Abs. Basophil 0.00 k/uL Normal 0.0-0.2 [facility] Comment on above: Performed By: #### C DP, CMPX #### [address] [place], [place] 1084683 Windows Technical Specialist: Ramiro Santillan MD Abs.Imm.Granulocyte 0.00 k/uL Normal 0.00-0.30 [facility] Comment on above: Performed By: #### C DP, CMPX #### [address] [place], [place] [phone] Windows Technical Specialist: Ramiro Santillan MD Abs.Neutrophil (Seg) 14.72 k/uL High 1.50-8.10 [facility] Comment on above: Performed By: #### C DP, CMPX #### [address] [place], [place] 6095383 Windows Technical Specialist: Ramiro Santillan MD Basophils/100 WBC (Bld) 0 % Normal 0-2 [facility] Comment on above: Performed By: #### C DP, CMPX #### [address] [place], [place] 2012983 [employer] Technical Specialist: Ramiro Santillan MD Eosinophils (Bld) [#/Vol] 0.00 10*3/uL Normal 0.00-0.4 4 [facility] Comment on above: Performed By: #### C DP, CMPX #### [address] [place] [address] [employer] Specialist: Ramiro Santillan MD Eosinophils/100 WBC (Bld) 0 % Low 1-4 [facility] Comment on above: Performed By: #### C DP, CMPX #### [facility] [address] [place], [place] [phone] Windows Technical Specialist: Ramiro Santillan MD Immature granulocytes/100 WBC (Bld) 0 % Normal 0 [facility] Comment on above: Performed By: #### C DP, CMPX #### [facility] [address] [place] [address] [employer] Technical Specialist: Ramiro Santillan MD Lymphocytes (Bld) [#/Vol] 1.29 10*3/uL Normal 1.10-3.7 0 [facility] Comment on above: Performed By: #### C DP, CMPX #### [facility] [address] [place], [place] 6103283 [employer] Technical Specialist: Ramiro Santillan MD Lymphocytes/100 WBC (Bld) 7 % Low 24-43 [facility] Comment on above: Performed By: #### C DP, CMPX #### [facility] [address] [place], [place] [phone] Windows Technical Specialist: Ramiro Santillan MD Monocytes (Bld) [#/Vol] 2.39 10*3/uL High 0.10-1.20 [facility] Comment on above: Performed By: #### C DP, CMPX #### [facility] [address] [place], [place] 9748883 [employer] Specialist: Ramiro Santillan MD Monocytes/100 WBC (Bld) 13 % High 3-12 [facility] Comment on above: Performed By: #### C DP, CMPX #### [facility] [address] [place], [place] [id number] Windows Technical Specialist: Ramiro Santillan MD Morphology Everardo (Bld) [Interp] Normal Normal [facility] Comment on above: Performed By: #### C DP, CMPX #### [facility] [address] [place], [place] [phone] Windows Technical Specialist: Ramiro Santillan MD Neutrophil (Seg) 80 % High 36-65 [facility] Comment on above: Performed By: #### C DP, CMPX #### [address] [place], [facility]83 Windows Technical Specialist: Ramiro Santillan MD Erythrocyte distribution width (RBC) [Ratio] 13.4 % Normal 11.8-14.4 [facility] Comment on above: Performed By: #### C DP, CMPX #### [address] [place], [facility]83 Windows Technical Specialist: Ramiro Santillan MD Hematocrit (Bld) [Volume fraction] 35.7 % Low 40.7-50.3 [facility] Comment on above: Performed By: #### C DP, CMPX #### [address] [place], [facility]83 Windows Technical Specialist: Ramiro Santillan MD Hemoglobin (Bld) [Mass/Vol] 12.5 g/dL Low 13.0-17. 0 [facility] Comment on above: Performed By: #### C DP, CMPX #### [address] [place], [facility]83 Windows Technical Specialist: Ramiro Santillan MD MCH (RBC) [Entitic mass] 29.2 pg Normal 25.2-33.5 [facility] Comment on above: Performed By: #### C DP, CMPX #### [address] [place] [address] Windows Technical Specialist: Ramiro Santillan MD MCHC (RBC) [Mass/Vol] 35.0 g/dL High 28.4-34.8 [facility] Comment on above: Performed By: #### C DP, CMPX #### [facility] [address] [place], [place] [id number] Windows Technical Specialist: Ramiro Santillan MD MCV (RBC) [Entitic vol] 83.4 fL Normal 82.6-102.9 [facility] Comment on above: Performed By: #### C DP, CMPX #### [address] [place], [place] [id number] Windows Technical Specialist: Ramiro Santillan MD NRBC Automated 0.0 per 100 WBC Normal 0.0 [facility] Comment on above: Performed By: #### C DP, CMPX #### [address] [place], [place] [id number] Windows Technical Specialist: Ramiro Santillan MD Platelet mean volume (Bld) [Entitic vol] 9.6 fL Normal 8.1-13.5 [facility] Comment on above: Performed By: #### C DP, CMPX #### [address] [place], [place] [phone] Windows Technical Specialist: Ramiro Santillan MD Platelets (Bld) [#/Vol] 291 10*3/uL Normal 138-453 [facility] Comment on above: Performed By: #### C DP, CMPX #### [address] [place], [place] [phone] Windows Technical Specialist: Ramiro Santillan MD RBC (Bld) [#/Vol] 4.28 10*6/uL Normal 4.21-5.77 [facility] Comment on above: Performed By: #### C DP, CMPX #### [address] [place] [address] Windows Technical Specialist: Ramiro Santillan MD WBC (Bld) [#/Vol] 18.4 10*3/uL High 3.5-11.3 [facility] Comment on above: Performed By: #### C DP, CMPX #### [address] [place] [address] Windows Technical Specialist: Ramiro Santillan MD Auto Diff Performed NOT REPORTED Normal [facility] Comment on above: Performed By: #### C DP, CMPX #### [facility] [address] [place], [place] [phone] Windows Technical Specialist: Ramiro Santillan MD Platelet Comment NOT REPORTED Normal [facility] Comment on above: Performed By: #### C DP, CMPX #### [facility] [address] [place] [address] [place] [address] Windows Technical Specialist: Ramiro Santillan MD RBC morphology finding Nom (Bld) NOT REPORTED Normal [facility] Comment on above: Performed By: #### C DP, CMPX #### [facility] [address] [place] [address] Dr. [place], [place] [phone] Windows Technical Specialist: Ramiro Santillan MD WBC Morphology NOT REPORTED Normal [facility] Comment on above: Performed By: #### C DP, CMPX #### [facility] [address] [place] [address] Dr. [place], [place] [phone] Windows Technical Specialist: Ramiro Santillan MD Cult,Bloodon 10-31-2021 Cult,Blood Specimen Description .BLOOD Special Requests 20ML LAC Culture POSITIVE BLOOD CULTURE, RN NOTIFIED: DIRECT GRAM STAIN FROM BOTTLE: GRAM POSITIVE COCCI IN CLUSTERS STAPHYLOCOCCUS AUREUS This isolate is methicillin susceptible. For susceptibility , refer to previous culture. (NOTE) Direct Gram Stain from bottle result called to and read back by: PINO LAZAR RN [facility] ICU 10/29/2021 AT 0100 Report Status FINAL 10/31/2021 Abnormal [facility] Comment on above: Performed By: #### B C #### [facility] [address] [place] [address] Windows Technical Specialist: Ramiro Mark MD [facility] [address] [place] [address] [place] [address] Windows Technical Specialist: Ramiro Santillan MD Cult,Blood Specimen Description .BLOOD Special Requests 20ML LH Culture POSITIVE Blood Culture DIRECT GRAM STAIN FROM BOTTLE: GRAM POSITIVE COCCI IN CLUSTERS Detected: Staphylococcus aureus Detected: mecA/C and MREJ Not Detected Methodolog y- Polymerase Chain Reaction (PCR) STAPHYLOCOCCUS AUREUS This isolate is methicillin susceptible. (NOTE) Direct Gram Stain from bottle result called to and read back by: PINO LAZAR RN, T ICU 10/29/2021 AT 0100 and Polymerase Chain Reaction (PCR) results called to and read back by: Anju Beltran ([facility]) at 1757 on 10.29.2021 Report Status FINAL 10/31/2021 SUSCEPTIBILITY Organism SAUR MSSA Method MARINE Penicillin NOT REPORTED Cefoxitin Screen NOT REPORTED Ciprofloxacin NOT REPORTED Clindamycin <=0.25 SUSCEPTIBLE Erythromycin <=0.25 SUSCEPTIBLE Gentamicin <=0.5 SUSCEPTIBLE Gentamicin is used only in combination with other active agents that test susceptible. Induced Clind Resist NOT REPORTED Levofloxacin 0.25 SUSCEPTIBLE Linezolid NOT REPORTED Moxifloxacin NOT REPORTED Nitrofurantoin NOT REPORTED Oxacillin 0.5 SUSCEPTIBLE This staph isolate may be susceptible to Penicillin. Please contact Microbiology for confirmatory testing of susceptibility if Pencillin is a therapeutic consideration. Synercid NOT REPORTED Rifampin NOT REPORTED Tetracycline <=1 SUSCEPTIBLE Tigecycline NOT REPORTED Trimethoprim/Sulfa <=10 SUSCEPTIBLE Vancomycin NOT REPORTED Abnormal [facility] Comment on above: Performed By: #### B C #### [facility] [address] [place], [place] [phone] Windows Technical Specialist: Ramiro Mark MD [facility] [address] [place] [address] [place] [address] Windows Technical Specialist: Ramiro Santillan MD High Sensitivity CRPon 10-31 High Sensitivity CRP 227.3 mg/L High <3.1 [facility] Comment on above: Result Comment: REFERENCE RANGE RISK OF CORONARY HEART DISEASE <1.0 Low Risk 1.0-3.0 Average Risk 3.1-9.9 High Risk >9.9 Very High Risk Performed By: #### C DP, CMPX #### [facility] [address] [place] [address] Windows Technical Specialist: Ramiro Santillan MD Lipid Profileon 10-31-2021 Cholesterol [Mass/Vol] 136 mg/dL Normal <200 [facility] Comment on above: Result Comment: Cholesterol Guidelines: <200 Desirable 200-240 Borderline >240 Undesirable Performed By: #### L IPR #### [address] [address] Windows Technical Specialist: Ramiro Mark MD Cholesterol in HDL [Mass/Vol] 31 mg/dL Low >40 [facility] Comment on above: Result Comment: HDL Guidelines: <40 Undesirable 40-59 Borderline >59 Desirable Performed By: #### L IPR #### [address] [address] Windows Technical Specialist: Ramiro Mark MD Cholesterol in LDL [Mass/Vol] 77 mg/dL Normal 0-130 [facility] Comment on above: Result Comment: LDL Guidelines: <100 Desirable 100-129 Near to/above Desirable 130-159 Borderline >159 Undesirable Direct (measured) LDL and calculated LDL are not interchangeable tests. Performed By: #### L IPR #### [address] [address] Windows Technical Specialist: Ramiro Mark MD Cholesterol.total/Cholestero l in HDL [Mass ratio] 4.4 {ratio} Normal <5 [facility] Comment on above: Performed By: #### L IPR #### [address] [address] Windows Technical Specialist: Ramiro Mark MD Triglyceride [Mass/Vol] 139 mg/dL Normal <150 [facility] Comment on above: Result Comment: Triglyceride Guidelines: <150 Desirable 150-199 Borderline 200-499 High >499 Very high Based on AHA Guidelines for fasting triglyceride, July 2012. Performed By: #### L IPR #### [address] [address] Windows Technical Specialist: Ramiro Mark MD Cholesterol,VLDL NOT REPORTED Normal -30 [facility] Comment on above: Performed By: #### L IPR #### [facility] [address] [place] [id number] Windows Technical Specialist: aRmiro Mark MD Sedimentation Rateon 022 Sedimentation Rate 79 mm High 0-20 [facility] Comment on above: Performed By: #### C DP, CMPX #### [facility] [address] [place] [address] Windows Technical Specialist: Ramiro Santillan MD Basic Metabolic Profon 10-30 (cont.) Normal [facility] Comment on above: Result Comment: Aver age GFR for 40-49 years old: 99 mL/min/1.73sq m Chronic Kidney Disease: <60 mL/min/1.73sq m Kidney failure: <15 mL/min/1.73sq m eGFR calculated using average adult body mass. Additional eGFR calculator available at: http://www.ScoreStreak/multiple_crcl_2011.htm Performed By: #### L IPR #### [address] [address] Windows Technical Specialist: Ramiro Mark MD Anion gap [Moles/Vol] 15 mmol/L Normal 9-17 [facility] Comment on above: Performed By: #### L IPR #### [address] [address] Windows Technical Specialist: Ramiro Mark MD BUN/CRE Ratio 12 Normal 9-20 [facility] Comment on above: Performed By: #### L IPR #### [address] [address] Windows Technical Specialist: Ramiro Mark MD Calcium [Mass/Vol] 8.2 mg/dL Low 8.6-10.4 [facility] Comment on above: Performed By: #### L IPR #### [address] [address] Windows Technical Specialist: Ramiro Mark MD Chloride [Moles/Vol] 91 mmol/L Low 98-107 [facility] Comment on above: Performed By: #### L IPR #### [address] [address] Windows Technical Specialist: Ramiro Mark MD CO2 [Moles/Vol] 20 mmol/L Normal 20-31 [facility] Comment on above: Performed By: #### L IPR #### [address] [address] Windows Technical Specialist: Ramiro Mark MD Creatinine [Mass/Vol] 0.83 mg/dL Normal 0.70-1.20 [facility] Comment on above: Performed By: #### L IPR #### [address] [address] Windows Technical Specialist: Ramiro Mark MD GFR, Amer >60 Normal >60 [facility] Comment on above: Performed By: #### L IPR #### [address] [address] Windows Technical Specialist: Ramiro Mark MD GFR,non Amer >60 Normal >60 [facility] Comment on above: Performed By: #### L IPR #### [address] [address] Windows Technical Specialist: Ramiro Mark MD Glucose [Mass/Vol] 287 mg/dL High 70-99 [facility] Comment on above: Performed By: #### L IPR #### [address] [address] Windows Technical Specialist: Ramiro Mark MD Potassium [Moles/Vol] 3.3 mmol/L Low 3.7-5.3 [facility] Comment on above: Performed By: #### L IPR #### [address] [address] Windows Technical Specialist: Ramiro Mark MD Sodium [Moles/Vol] 126 mmol/L Low 135-144 [facility] Comment on above: Performed By: #### L IPR #### [address] [address] Windows Technical Specialist: Ramiro Mark MD Staging: Normal [facility] Comment on above: Result Comment: Stag e 1: Some kidney damage normal GFR Stage 2: Mild kidney damage GFR 60-89 Stage 3: Moderate kidney damage GFR 30-59 Stage 4: Severe kidney damage GFR 15-29 Stage 5: Severe kidney damage GFR <15 ESRD - chronic treatment by dialysis or transplant Performed By: #### L IPR #### [address] [address] Windows Technical Specialist: Ramiro Mark MD Urea nitrogen [Mass/Vol] 10 mg/dL Normal 6-20 [facility] Comment on above: Performed By: #### L IPR #### [address] [address] Windows Technical Specialist: Ramiro Mark MD C-Reactive Proteinon 022 CRP [Mass/Vol] 272.6 mg/L High 0.0-5.0 [facility] Comment on above: Performed By: #### L IPR #### [address] [address] Windows Technical Specialist: Ramiro Mark MD CBC with Diffon 10-30-2021 Abs. Basophil 0.00 k/uL Normal 0.0-0.2 [facility] Comment on above: Performed By: #### L IPR #### [facility] [address] [place] [address] Windows Technical Specialist: Ramiro Mark MD Abs.Imm.Granulocyte 0.00 k/uL Normal 0.00-0.30 [facility] Comment on above: Performed By: #### L IPR #### [facility] [address] [place] [address] Windows Technical Specialist: Ramiro Mark MD Abs.Neutrophil (Seg) 20.98 k/uL High 1.50-8.10 [facility] Comment on above: Performed By: #### L IPR #### [address] [address] Windows Technical Specialist: Ramiro Mark MD Basophils/100 WBC (Bld) 0 % Normal 0-2 [facility] Comment on above: Performed By: #### L IPR #### [address] [address] Windows Technical Specialist: Ramiro Mark MD Eosinophils (Bld) [#/Vol] 0.00 10*3/uL Normal 0.00-0.4 4 [facility] Comment on above: Performed By: #### L IPR #### [address] [address] Windows Technical Specialist: Ramiro Mark MD Eosinophils/100 WBC (Bld) 0 % Low 1-4 [facility] Comment on above: Performed By: #### L IPR #### [address] [address] Windows Technical Specialist: Ramiro Mark MD Immature granulocytes/100 WBC (Bld) 0 % Normal 0 [facility] Comment on above: Performed By: #### L IPR #### [address] [address] Windows Technical Specialist: Ramiro Mark MD Lymphocytes (Bld) [#/Vol] 0.98 10*3/uL Low 1.10-3.7 0 [facility] Comment on above: Performed By: #### L IPR #### [address] [address] Windows Technical Specialist: Ramiro Mark MD Lymphocytes/100 WBC (Bld) 4 % Low 24-43 [facility] Comment on above: Performed By: #### L IPR #### [address] [address] Windows Technical Specialist: Ramiro Mark MD Monocytes (Bld) [#/Vol] 2.44 10*3/uL High 0.10-1.20 [facility] Comment on above: Performed By: #### L IPR #### [address] [address] Windows Technical Specialist: Ramiro Mark MD Monocytes/100 WBC (Bld) 10 % Normal 3-12 [facility] Comment on above: Performed By: #### L IPR #### [address] [address] Windows Technical Specialist: Ramiro Mark MD Morphology Everardo (Bld) [Interp] Normal Normal [facility] Comment on above: Performed By: #### L IPR #### [address] [address] Windows Technical Specialist: Ramiro Mark MD Neutrophil (Seg) 86 % High 36-65 [facility] Comment on above: Performed By: #### L IPR #### [address] [address] Windows Technical Specialist: Ramiro Mark MD Erythrocyte distribution width (RBC) [Ratio] 13.4 % Normal 11.8-14.4 [facility] Comment on above: Performed By: #### L IPR #### [address] [address] Windows Technical Specialist: Ramiro Mark MD Hematocrit (Bld) [Volume fraction] 35.7 % Low 40.7-50.3 [facility] Comment on above: Performed By: #### L IPR #### [address] [address] Windows Technical Specialist: Ramiro Mark MD Hemoglobin (Bld) [Mass/Vol] 12.4 g/dL Low 13.0-17. 0 [facility] Comment on above: Performed By: #### L IPR #### [address] [address] Windows Technical Specialist: Ramiro Mark MD MCH (RBC) [Entitic mass] 29.4 pg Normal 25.2-33.5 [facility] Comment on above: Performed By: #### L IPR #### [address] [address] Windows Technical Specialist: Ramiro Mark MD MCHC (RBC) [Mass/Vol] 34.7 g/dL Normal 28.4-34.8 [facility] Comment on above: Performed By: #### L IPR #### [address] [address] Windows Technical Specialist: Ramiro Mark MD MCV (RBC) [Entitic vol] 84.6 fL Normal 82.6-102.9 [facility] Comment on above: Performed By: #### L IPR #### [address] [address] Windows Technical Specialist: Ramiro Mark MD NRBC Automated 0.0 per 100 WBC Normal 0.0 [facility] Comment on above: Performed By: #### L IPR #### [address] [address] Windows Technical Specialist: Ramiro Mark MD Platelet mean volume (Bld) [Entitic vol] 9.1 fL Normal 8.1-13.5 [facility] Comment on above: Performed By: #### L IPR #### [address] [address] Windows Technical Specialist: Ramiro Mark MD Platelets (Bld) [#/Vol] 250 10*3/uL Normal 138-453 [facility] Comment on above: Performed By: #### L IPR #### [address] [address] Windows Technical Specialist: Ramiro Mark MD RBC (Bld) [#/Vol] 4.22 10*6/uL Normal 4.21-5.77 [facility] Comment on above: Performed By: #### L IPR #### [address] [address] Windows Technical Specialist: Ramiro Mark MD WBC (Bld) [#/Vol] 24.4 10*3/uL High 3.5-11.3 [facility] Comment on above: Performed By: #### L IPR #### [facility] [address] [place] [address] Windows Technical Specialist: Ramiro Mark MD Auto Diff Performed NOT REPORTED Normal [facility] Comment on above: Performed By: #### L IPR #### [address] [address] Windows Technical Specialist: Ramiro Mark MD Platelet Comment NOT REPORTED Normal [facility] Comment on above: Performed By: #### L IPR #### [address] [address] Windows Technical Specialist: Ramiro Mark MD RBC morphology finding Nom (Bld) NOT REPORTED Normal [facility] Comment on above: Performed By: #### L IPR #### [address] [address] Windows Technical Specialist: Ramiro Mark MD WBC Morphology NOT REPORTED Normal [facility] Comment on above: Performed By: #### L IPR #### [facility] [address] [place] [address] Windows Technical Specialist: Ramiro Mark MD Cult,Fluidon 10-30-2021 Cult,Fluid Specimen Description .SYNOVIAL FLUID Special Requests NOT REPORTED Direct Exam NOT REPORTED Culture DUE TO THE SPECIMEN TYPE, THE ORDER WAS CANCELED AND REORDERED. PLEASE REFER TO: AEROBIC ANAEROBIC CULTURE Report Status FINAL 10/30/2021 Normal [facility] Comment on above: Performed By: #### F LUAD #### [facility] [address] [place] [address] Windows Technical Specialist: Ramiro Santillan MD FLUORO FOR SURGICAL PROCEDUR ESon 10-30-2021 FLUORO FOR SURGICAL PROCEDURES Radiology exam is complete. No Radiologist dictation. Please follow up with ordering provider. Final result Normal [facility] MRI HIP RIGHT W WO CONTRASTo n 10-30-2021 MRI HIP RIGHT W WO CONTRAST EXAMINATION: MRI OF THE RIGHT HIP WITH AND WITHOUT CONTRAST, 10/28/2021 4:59 pm TECHNIQUE: Multiplanar multisequence MRI of the right hip was performed with and without the administration of intravenous contrast. COMPARISON: Right hip radiograph dated 10/27/2021. HISTORY: ORDERING SYSTEM PROVIDED HISTORY: Right hip pain, difficulty ambulating. TECHNOLOGIST PROVIDED HISTORY: Right hip pain, difficulty ambulating. FINDINGS: BONE MARROW: No evidence of acute fracture or avascular necrosis of the right hip is seen. HIP JOINT: No evidence of dislocation is seen. No significant joint effusion is seen. LABRUM: Evaluation of the acetabular labrum is limited without the benefit of intra-articular contrast. Within the limitations of the study, there are linear foci of increased signal intensity seen within the anterior and anterosuperior labrum, suspicious for tearing. SCIATIC NERVE: The course of the sciatic nerve is normal and there is no abnormal mass seen impinging on it. MUSCLES / TENDONS: There is moderate to severe muscular edema and enhancement seen within tensor fascia cornelio and gluteus minimus muscle, suspicious for severe strain/muscular injury. There is an approximately 3.3 x 2.2 x 6.4 cm heterogenous soft tissue mass within the anterior aspect of the gluteus minimus muscle. On the postcontrast images there is peripheral enhancement without definite internal enhancement seen. In a setting of trauma this is suspicious for underlying intramuscular hematoma. There is mild increased signal intensity seen along the origin of hamstring tendon, which may reflect mild tendinosis. The rectus femoris tendon appears intact. The iliopsoas tendon appears intact. The gluteal tendons appear grossly intact. IMPRESSION: Moderate to severe muscular edema seen within tensor fascia cornelio and gluteus minimus muscle, suspicious for severe strain/muscular injury. 3.3 x 2.2 x 6.4 cm heterogenous soft tissue mass within the anterior aspect of the gluteus minimus muscle is suspicious for intramuscular hematoma. Mild tendinosis affecting hamstring tendon. Tearing of the anterior and anterosuperior labrum. No evidence of acute fracture or avascular necrosis of the right hip seen. Interpreted by: Ole Carranza Signed by: Ole Carranza 10/30/21 Final result Normal [facility] Sedimentation Rateon 10-30-2 022 Sedimentation Rate 81 mm High 0-20 [facility] Comment on above: Performed By: #### L IPR #### [facility] [address] [place], [place] [phone] Windows Technical Specialist: Ramiro Mark MD Vancomycin,Randomon 10-30-19 22 Vancomycin 23.5 ug/mL Normal [facility] Comment on above: Result Comment: Reference Ranges Peak: 30 - 40 Trough: 10 - 20 Performed By: #### A BG #### [address] [place], [place] [phone] Windows Technical Specialist: Ramiro Santillan MD Date last dose, NOT REPORTED Normal [facility] Comment on above: Performed By: #### A BG #### [address] [place], [place] [address] Windows Technical Specialist: Ramiro Santillan MD Dose amount, NOT REPORTED Normal [facility] Comment on above: Performed By: #### A BG #### [address] [place], [place] [phone] Windows Technical Specialist: Ramiro Santillan MD Time last dose, NOT REPORTED Normal [facility] Comment on above: Performed By: #### A BG #### [address] [place], [place] [phone] Windows Technical Specialist: Ramiro Santillan MD Basic Metabolic Profon 10-29 (cont.) Normal [facility] Comment on above: Result Comment: Aver age GFR for 40-49 years old: 99 mL/min/1.73sq m Chronic Kidney Disease: <60 mL/min/1.73sq m Kidney failure: <15 mL/min/1.73sq m eGFR calculated using average adult body mass. Additional eGFR calculator available at: http://www.Balls.ie.StyleCaster/multiple_crcl_2011.htm Performed By: #### F LUAD #### [address] [place] [address] Windows Technical Specialist: Ramiro Santillan MD Anion gap [Moles/Vol] 17 mmol/L Normal 9-17 [facility] Comment on above: Performed By: #### F LUAD #### [facility] [address] [place], [place] [phone] Windows Technical Specialist: Ramiro Santillan MD BUN/CRE Ratio 15 Normal 9-20 [facility] Comment on above: Performed By: #### F LUAD #### [facility] [address] [place], [place] [phone] Windows Technical Specialist: Ramiro Santillan MD Calcium [Mass/Vol] 8.5 mg/dL Low 8.6-10.4 [facility] Comment on above: Performed By: #### F LUAD #### [facility] [address] [place], [place] [phone] Windows Technical Specialist: Ramiro Santillan MD Chloride [Moles/Vol] 91 mmol/L Low 98-107 [facility] Comment on above: Performed By: #### F LUAD #### [facility] [address] [place], [place] [phone] Windows Technical Specialist: Ramiro Santillan MD CO2 [Moles/Vol] 16 mmol/L Low 20-31 [facility] Comment on above: Performed By: #### F LUAD #### [facility] [address] [place], [place] [phone] Windows Technical Specialist: Ramiro Santillan MD Creatinine [Mass/Vol] 0.79 mg/dL Normal 0.70-1.20 [facility] Comment on above: Performed By: #### F LUAD #### [facility] [address] [place], [place] [address] Windows Technical Specialist: Ramiro Santillan MD GFR, Amer >60 Normal >60 [facility] Comment on above: Performed By: #### F LUAD #### [facility] [address] [place], [place] [id number] Windows Technical Specialist: Ramiro Santillan MD GFR,non Amer >60 Normal >60 [facility] Comment on above: Performed By: #### F LUAD #### [facility] [address] [place], [place] [id number] Windows Technical Specialist: Ramiro Santillan MD Glucose [Mass/Vol] 375 mg/dL High 70-99 [facility] Comment on above: Performed By: #### F LUAD #### [facility] [address] [place], [place] [id number] Windows Technical Specialist: Ramiro Santillan MD Potassium [Moles/Vol] 3.6 mmol/L Low 3.7-5.3 [facility] Comment on above: Performed By: #### F LUAD #### [facility] [address] [place] [address] Dr[address] [place], [place] [id number] Windows Technical Specialist: Ramiro Santillan MD Sodium [Moles/Vol] 124 mmol/L Low 135-144 [facility] Comment on above: Performed By: #### F LUAD #### [facility] [address] [place] [address] Dr[address] [place], [place] 6484583 Windows Technical Specialist: Ramiro Santillan MD Staging: Normal [facility] Comment on above: Result Comment: Stag e 1: Some kidney damage normal GFR Stage 2: Mild kidney damage GFR 60-89 Stage 3: Moderate kidney damage GFR 30-59 Stage 4: Severe kidney damage GFR 15-29 Stage 5: Severe kidney damage GFR <15 ESRD - chronic treatment by dialysis or transplant Performed By: #### F LUAD #### [facility] [address] [place], [place] [phone] Windows Technical Specialist: Ramiro Santillan MD Urea nitrogen [Mass/Vol] 12 mg/dL Normal 6-20 [facility] Comment on above: Performed By: #### F LUAD #### [facility] [address] [place], [place] 1898283 Windows Technical Specialist: Ramiro Santillan MD CBC with Diffon 10-29-2021 Abs. Basophil 0.00 k/uL Normal 0.0-0.2 [facility] Comment on above: Performed By: #### F LUAD #### [address] [place], [place] [phone] Windows Technical Specialist: Ramiro Santillan MD Abs.Imm.Granulocyte 0.00 k/uL Normal 0.00-0.30 [facility] Comment on above: Performed By: #### F LUAD #### [facility] [address] [place], [place] [address] Windows Technical Specialist: Ramiro Santillan MD Abs.Neutrophil (Seg) 19.78 k/uL High 1.50-8.10 [facility] Comment on above: Performed By: #### F LUAD #### [address] [place] [id number] Windows Technical Specialist: Ramiro Santillan MD Basophils/100 WBC (Bld) 0 % Normal 0-2 [facility] Comment on above: Performed By: #### F LUAD #### [address] [place], [place] [address] Windows Technical Specialist: Ramiro Santillan MD Eosinophils (Bld) [#/Vol] 0.23 10*3/uL Normal 0.00-0.4 4 [facility] Comment on above: Performed By: #### F LUAD #### [address] [place], [place] [address] Windows Technical Specialist: Ramiro Santillan MD Eosinophils/100 WBC (Bld) 1 % Normal 1-4 [facility] Comment on above: Performed By: #### F LUAD #### [address] [place], [place] 9341283 Windows Technical Specialist: Ramiro Santillan MD Immature granulocytes/100 WBC (Bld) 0 % Normal 0 [facility] Comment on above: Performed By: #### F LUAD #### [facility] [address] [place], [place] 2419983 Windows Technical Specialist: Ramiro Santillan MD Lymphocytes (Bld) [#/Vol] 1.15 10*3/uL Normal 1.10-3.7 0 [facility] Comment on above: Performed By: #### F LUAD #### [facility] [address] [place], [place] 1737183 Windows Technical Specialist: Ramiro Santillan MD Lymphocytes/100 WBC (Bld) 5 % Low 24-43 [facility] Comment on above: Performed By: #### F LUAD #### [facility] [address] [place], [place] [phone] Windows Technical Specialist: Ramiro Santillan MD Monocytes (Bld) [#/Vol] 1.84 10*3/uL High 0.10-1.20 [facility] Comment on above: Performed By: #### F LUAD #### [facility] [address] [place] [address] Dr[address] [place], [place] [phone] Windows Technical Specialist: Ramiro Santillan MD Monocytes/100 WBC (Bld) 8 % Normal 3-12 [facility] Comment on above: Performed By: #### F LUAD #### [address] [place], [place] 8203583 Windows Technical Specialist: Ramiro Santillan MD Morphology Everardo (Bld) [Interp] Normal Normal [facility] Comment on above: Performed By: #### F LUAD #### [facility] [address] [place], [place] 0697683 Windows Technical Specialist: Ramiro Santillan MD Neutrophil (Seg) 86 % High 36-65 [facility] Comment on above: Performed By: #### F LUAD #### [facility] [address] [place], [place] [id number] Windows Technical Specialist: Ramiro Santillan MD Erythrocyte distribution width (RBC) [Ratio] 13.6 % Normal 11.8-14.4 [facility] Comment on above: Performed By: #### F LUAD #### [address] [place] [address] Windows Technical Specialist: Ramiro Santillan MD Hematocrit (Bld) [Volume fraction] 36.2 % Low 40.7-50.3 [facility] Comment on above: Performed By: #### F LUAD #### [address] [place], [facility]83 Windows Technical Specialist: Ramiro Santillan MD Hemoglobin (Bld) [Mass/Vol] 12.5 g/dL Low 13.0-17. 0 [facility] Comment on above: Performed By: #### F LUAD #### [address] [place] [phone] Windows Technical Specialist: Ramiro Santillan MD MCH (RBC) [Entitic mass] 29.1 pg Normal 25.2-33.5 [facility] Comment on above: Performed By: #### F LUAD #### [address] [place], [facility]83 Windows Technical Specialist: Ramiro Santillan MD MCHC (RBC) [Mass/Vol] 34.5 g/dL Normal 28.4-34.8 [facility] Comment on above: Performed By: #### F LUAD #### [address] [place], [facility]83 Windows Technical Specialist: Ramiro Santillan MD MCV (RBC) [Entitic vol] 84.4 fL Normal 82.6-102.9 [facility] Comment on above: Performed By: #### F LUAD #### [address] [place] [phone] Windows Technical Specialist: Ramiro Santillan MD NRBC Automated 0.0 per 100 WBC Normal 0.0 [facility] Comment on above: Performed By: #### F LUAD #### [facility] [address] [place] [address] Windows Technical Specialist: Ramiro Santillan MD Platelet mean volume (Bld) [Entitic vol] 9.1 fL Normal 8.1-13.5 [facility] Comment on above: Performed By: #### F LUAD #### [facility] [address] [place], [place] 0239483 Windows Technical Specialist: Ramiro Santillan MD Platelets (Bld) [#/Vol] 231 10*3/uL Normal 138-453 [facility] Comment on above: Performed By: #### F LUAD #### [facility] [address] [place], [place] 2162483 Windows Technical Specialist: Ramiro Santillan MD RBC (Bld) [#/Vol] 4.29 10*6/uL Normal 4.21-5.77 [facility] Comment on above: Performed By: #### F LUAD #### [address] [place] [address] Windows Technical Specialist: Ramiro Santillan MD WBC (Bld) [#/Vol] 23.0 10*3/uL High 3.5-11.3 [facility] Comment on above: Performed By: #### F LUAD #### [address] [place], [place] 0902083 Windows Technical Specialist: Ramiro Santillan MD Auto Diff Performed NOT REPORTED Normal [facility] Comment on above: Performed By: #### F LUAD #### [facility] [address] [place], [place] 1977683 Windows Technical Specialist: Ramiro Santillan MD Platelet Comment NOT REPORTED Normal [facility] Comment on above: Performed By: #### F LUAD #### [facility] [address] [place] [address] Dr. [place], [place] [phone] Windows Technical Specialist: Ramiro Santillan MD RBC morphology finding Nom (Bld) NOT REPORTED Normal [facility] Comment on above: Performed By: #### F LUAD #### [facility] [address] [place], [place] [phone] Windows Technical Specialist: Ramiro Santillan MD WBC Morphology NOT REPORTED Normal [facility] Comment on above: Performed By: #### F LUAD #### [facility] [address] [place] [phone] Windows Technical Specialist: Ramiro Santillan MD Arterial Blood Gaseson 10-28 Jody Test PASS Normal [facility] Comment on above: Performed By: #### A BG #### [facility] [address] [place], [place] 1100583 Windows Technical Specialist: Ramiro Santillan MD HCO3 (Bld) [Moles/Vol] 16.4 mmol/L Low 22-26 [facility] Comment on above: Performed By: #### A BG #### [facility] [address] [place], [place] 3326083 Windows Technical Specialist: Ramiro Santillan MD Negative Base Excess 7.6 mmol/L High 0.0-2.0 [facility] Comment on above: Performed By: #### A BG #### [facility] [address] [place], [place] 5096583 Windows Technical Specialist: Ramiro Santillan MD O2 Device/Flow/% ROOM AIR Normal [facility] Comment on above: Performed By: #### A BG #### [facility] [address] [place], [place] 4133483 Windows Technical Specialist: Ramiro Santillan MD Oxygen (Bld) [Partial pressure] 87.9 mm[Hg] Normal 80-100 [facility] Comment on above: Performed By: #### A BG #### [facility] [address] [place] [address] Windows Technical Specialist: Ramiro Santillan MD Oxygen saturation in Blood 96.5 % Normal 95-98 [facility] Comment on above: Performed By: #### A BG #### [facility] [address] [place], [place] 1765983 Windows Technical Specialist: Ramiro Santillan MD pCO2 29.8 mmHg Low 35-45 [facility] Comment on above: Performed By: #### A BG #### [facility] [address] [place], [place] 1875983 Windows Technical Specialist: Ramiro Santillan MD pH (Bld) 7.359 [pH] Normal 7.35-7.45 [facility] Comment on above: Performed By: #### A BG #### [facility] [address] [place] [address] Windows Technical Specialist: Ramiro Santillan MD Pt. Position SEMI-FOWLERS Normal [facility] Comment on above: Performed By: #### A BG #### [facility] [address] [place], [place] [phone] Windows Technical Specialist: Ramiro Santillan MD Respiratory rate 14 /min Normal [facility] Comment on above: Performed By: #### A BG #### [facility] [address] [place], [place] 9607383 Windows Technical Specialist: Ramiro Santillan MD Site Drawn Right Radial Artery Normal [facility] Comment on above: Performed By: #### A BG #### [facility] [address] [place], [place] [phone] Windows Technical Specialist: Ramiro Santillan MD Body Temp. NOT REPORTED Normal [facility] Comment on above: Performed By: #### A BG #### [facility] [address] [place] [address] Windows Technical Specialist: Ramiro Santillan MD Carboxy Hgb NOT REPORTED Normal 0-5 [facility] Comment on above: Performed By: #### A BG #### [facility] [address] [place], [place] 9000183 Windows Technical Specialist: Ramiro Santillan MD FIO2 NOT REPORTED Normal [facility] Comment on above: Performed By: #### A BG #### [facility] [address] [place], [place] 4626483 Windows Technical Specialist: Ramiro Santillan MD Methemoglobin NOT REPORTED Normal 0.0-1.9 [facility] Comment on above: Performed By: #### A BG #### [facility] [address] [place] [address] Windows Technical Specialist: Ramiro Santillan MD Mode NOT REPORTED Normal [facility] Comment on above: Performed By: #### A BG #### [facility] [address] [place] [address] Windows Technical Specialist: Ramiro Santillan MD Notification Time NOT REPORTED Normal [facility] Comment on above: Performed By: #### A BG #### [facility] [address] [place] [address] Windows Technical Specialist: Ramiro Santillan MD Notification: NOT REPORTED Normal [facility] Comment on above: Performed By: #### A BG #### [facility] [address] [place], [place] 6257983 Windows Technical Specialist: Ramiro Santillan MD Oxyhemoglobin NOT REPORTED Normal 95.0-98.0 [facility] Comment on above: Performed By: #### A BG #### [facility] [address] [place], [place] 6525683 Windows Technical Specialist: Ramiro Santillan MD pCO2 Adj'd for Temp NOT REPORTED Normal [facility] Comment on above: Performed By: #### A BG #### [facility] [address] [place] [address] Windows Technical Specialist: Ramiro Santillan MD PEEP/CPAP NOT REPORTED Normal [facility] Comment on above: Performed By: #### A BG #### [facility] [address] [place] [address] Dr. [place], [place] 8305683 Windows Technical Specialist: Ramiro Santillan MD pH Adjst'd for Temp. NOT REPORTED Normal 7.350-7.450 [facility] Comment on above: Performed By: #### A BG #### [address] [place], [place] 7061283 Windows Technical Specialist: Ramiro Santillan MD pO2 Adjst'd for Temp NOT REPORTED Normal 80.0-100.0 [facility] Comment on above: Performed By: #### A BG #### [address] [place], [place] 9151783 Windows Technical Specialist: Ramiro Santillan MD Positive Base Excess NOT REPORTED Normal 0.0-2.0 [facility] Comment on above: Performed By: #### A BG #### [facility] [address] [place] [address] [place] [phone] Windows Technical Specialist: Ramiro Santillan MD PSV NOT REPORTED Normal [facility] Comment on above: Performed By: #### A BG #### [address] [place] [phone] Windows Technical Specialist: Ramiro Santillan MD Set Rate NOT REPORTED Normal [facility] Comment on above: Performed By: #### A BG #### [facility] [address] [place] [address] Dr. [place], [facility]83 Windows Technical Specialist: Ramiro Santillan MD Text for Respiratory NOT REPORTED Normal [facility] Comment on above: Performed By: #### A BG #### [address] [place] [address] Windows Technical Specialist: Ramiro Santillan MD Total Hb NOT REPORTED Normal 12.0-16.0 [facility] Comment on above: Performed By: #### A BG #### [facility] [address] [place] [address] [place] [address] Windows Technical Specialist: Ramiro Santillan MD Total Rate NOT REPORTED Normal [facility] Comment on above: Performed By: #### A BG #### [facility] [address] [place] [address] Windows Technical Specialist: Ramiro Santillan MD VT NOT REPORTED Normal [facility] Comment on above: Performed By: #### A BG #### [facility] [address] [place] [address] Windows Technical Specialist: Ramiro Santillan MD Basic Metabolic Profon 10-28 (cont.) Normal [facility] Comment on above: Result Comment: Aver age GFR for 40-49 years old: 99 mL/min/1.73sq m Chronic Kidney Disease: <60 mL/min/1.73sq m Kidney failure: <15 mL/min/1.73sq m eGFR calculated using average adult body mass. Additional eGFR calculator available at: http://www.ScoreStreak/multiple_crcl_2012.htm Performed By: #### LEENA Purcell, CHELO #### [address] [place] [address] Windows Technical Specialist: Ramiro Santillan MD Anion gap [Moles/Vol] 13 mmol/L Normal 9-17 [facility] Comment on above: Performed By: #### LEENA Purcell, CHELO #### [facility] [address] [place] [address] Windows Technical Specialist: Ramiro Santillan MD BUN/CRE Ratio 15 Normal 9-20 [facility] Comment on above: Performed By: #### LEENA Purcell, CHELO #### [facility] [address] [place] [address] Windows Technical Specialist: Ramiro Santillan MD Calcium [Mass/Vol] 8.2 mg/dL Low 8.6-10.4 [facility] Comment on above: Performed By: #### LEENA Purcell, CHELO #### [facility] [address] [place], [place] 4041183 Windows Technical Specialist: Ramiro Satnillan MD Chloride [Moles/Vol] 98 mmol/L Normal 98-107 [facility] Comment on above: Performed By: #### M G, BMP, CHELO #### [facility] [address] [place], [place] 0698483 Windows Technical Specialist: Ramiro Santillan MD CO2 [Moles/Vol] 15 mmol/L Low 20-31 [facility] Comment on above: Performed By: #### M Sumit, BMP, CHELO #### [facility] [address] [place], [place] 2137083 Windows Technical Specialist: Ramiro Santillan MD Creatinine [Mass/Vol] 0.78 mg/dL Normal 0.70-1.20 [facility] Comment on above: Performed By: #### M Sumit BMP, CHELO #### [facility] [address] [place], [place] 5216683 Windows Technical Specialist: Ramiro Santillan MD GFR, Amer >60 Normal >60 [facility] Comment on above: Performed By: #### M Sumit BMP, CHELO #### [facility] [address] [place], [place] 3687283 Windows Technical Specialist: Ramiro Santillan MD GFR,non Amer >60 Normal >60 [facility] Comment on above: Performed By: #### M Sumit, BMP, CHELO #### [facility] [address] [place], [place] 3764983 Windows Technical Specialist: Ramiro Santillan MD Glucose [Mass/Vol] 193 mg/dL High 70-99 [facility] Comment on above: Performed By: #### M G, BMP, CHELO #### [facility] [address] [place], [place] 1042383 Windows Technical Specialist: Ramiro Santillan MD Potassium [Moles/Vol] 3.2 mmol/L Low 3.7-5.3 [facility] Comment on above: Performed By: #### LEENA Purcell, CHELO #### [address] [place] [address] Windows Technical Specialist: Ramiro Santillan MD Sodium [Moles/Vol] 126 mmol/L Low 135-144 [facility] Comment on above: Performed By: #### LEENA Purcell, CHELO #### [address] [place] [address] Windows Technical Specialist: Ramiro Santillan MD Staging: [facility] Comment on above: Result Comment: Stag e 1: Some kidney damage normal GFR Stage 2: Mild kidney damage GFR 60-89 Stage 3: Moderate kidney damage GFR 30-59 Stage 4: Severe kidney damage GFR 15-29 Stage 5: Severe kidney damage GFR <15 ESRD - chronic treatment by dialysis or transplant Performed By: #### LEENA Purcell, CHELO #### [address] [place] [address] Windows Technical Specialist: Ramiro Santillan MD Urea nitrogen [Mass/Vol] 12 mg/dL Normal 6-20 [facility] Comment on above: Performed By: #### LEENA Purcell, CHELO #### [address] [place] [address] Windows Technical Specialist: Ramiro Santillan MD (cont.) [facility] Comment on above: Result Comment: Aver age GFR for 40-49 years old: 99 mL/min/1.73sq m Chronic Kidney Disease: <60 mL/min/1.73sq m Kidney failure: <15 mL/min/1.73sq m eGFR calculated using average adult body mass. Additional eGFR calculator available at: http://www.Balls.ie.StyleCaster/multiple_crcl_2012.htm Performed By: #### B C #### [address] [id number] Windows Technical Specialist: Ramiro Mark MD [facility] [address] [place], [place] 4254483 Windows Technical Specialist: Ramiro Santillan MD Anion gap [Moles/Vol] 11 mmol/L Normal 9-17 [facility] Comment on above: Performed By: #### B C #### [facility] [address] [place] [address] Windows Technical Specialist: Ramiro Mark MD [facility] [address] [place] [address] Windows Technical Specialist: Ramiro Santillan MD BUN/CRE Ratio 15 Normal 9-20 [facility] Comment on above: Performed By: #### B C #### [facility] [address] [place] [address] Windows Technical Specialist: Ramiro Mark MD [facility] [address] [place] [address] [place], [place] 1254983 Windows Technical Specialist: Ramiro Santillan MD Calcium [Mass/Vol] 8.2 mg/dL Low 8.6-10.4 [facility] Comment on above: Performed By: #### B C #### [facility] [address] [place] [address] Windows Technical Specialist: Ramiro Mark MD [facility] [address] [place] [address] [place], [place] 9191483 Windows Technical Specialist: Ramiro Santillan MD Chloride [Moles/Vol] 99 mmol/L Normal 98-107 [facility] Comment on above: Performed By: #### B C #### [facility] [address] [place] [address] Windows Technical Specialist: Ramiro Mark MD [facility] [address] [place] [address] [place], [place] 452[address] Windows Technical Specialist: Ramiro Santillan MD CO2 [Moles/Vol] 15 mmol/L Low 20-31 [facility] Comment on above: Performed By: #### B C #### [facility] [address] [place] [address] Windows Technical Specialist: Ramiro Mark MD [facility] [address] [place] [address] [place] [address] Windows Technical Specialist: Ramiro Santillan MD Creatinine [Mass/Vol] 0.93 mg/dL Normal 0.70-1.20 [facility] Comment on above: Performed By: #### B C #### [facility] [address] [place] [address] Windows Technical Specialist: Ramiro Mark MD [facility] [address] [place] [address] [place], [place] 7856083 Windows Technical Specialist: Ramiro Santillan MD GFR, Amer >60 Normal >60 [facility] Comment on above: Performed By: #### B C #### [address] [address] Windows Technical Specialist: Ramiro Mark MD [facility] [address] [place] [address] [place] [phone] Windows Technical Specialist: Ramiro Santillan MD GFR,non Amer >60 Normal >60 [facility] Comment on above: Performed By: #### B C #### [facility] [address] [place] [address] Windows Technical Specialist: Ramiro Mark MD [facility] [address] [place] [address] [place] [phone] Windows Technical Specialist: Ramiro Santillan MD Glucose [Mass/Vol] 111 mg/dL High 70-99 [facility] Comment on above: Performed By: #### B C #### [facility] [address] [place] [address] Windows Technical Specialist: Ramiro Mark MD [facility] [address] [place] [address] [place] [address] Windows Technical Specialist: Ramiro Santillan MD Potassium [Moles/Vol] 3.3 mmol/L Low 3.7-5.3 [facility] Comment on above: Performed By: #### B C #### [facility] [address] [place] [address] Windows Technical Specialist: Ramiro Mark MD [facility] [address] [place], [place] 0615183 Windows Technical Specialist: Ramiro Santillan MD Sodium [Moles/Vol] 125 mmol/L Low 135-144 [facility] Comment on above: Performed By: #### B C #### [facility] [address] [place] [address] Windows Technical Specialist: Ramiro Mark MD [facility] [address] [place] [address] Windows Technical Specialist: Ramiro Santillan MD Staging: [facility] Comment on above: Result Comment: Stag e 1: Some kidney damage normal GFR Stage 2: Mild kidney damage GFR 60-89 Stage 3: Moderate kidney damage GFR 30-59 Stage 4: Severe kidney damage GFR 15-29 Stage 5: Severe kidney damage GFR <15 ESRD - chronic treatment by dialysis or transplant Performed By: #### B C #### [facility] [address] [place] [address] Windows Technical Specialist: Ramiro Mark MD [facility] [address] [place], [place] [address] [place] [address] Windows Technical Specialist: Ramiro Santillan MD Urea nitrogen [Mass/Vol] 14 mg/dL Normal 6-20 [facility] Comment on above: Performed By: #### B C #### [facility] [address] [place] [address] Windows Technical Specialist: Ramiro Mark MD [facility] [address] [place] [address] Windows Technical Specialist: Ramiro Santillan MD (cont.) [facility] Comment on above: Result Comment: Aver age GFR for 40-49 years old: 99 mL/min/1.73sq m Chronic Kidney Disease: <60 mL/min/1.73sq m Kidney failure: <15 mL/min/1.73sq m eGFR calculated using average adult body mass. Additional eGFR calculator available at: http://www.Balls.ie.StyleCaster/multiple_crcl_2012.htm Performed By: #### A BG #### [address] [place] [address] Windows Technical Specialist: Ramiro Santillan MD Anion gap [Moles/Vol] 13 mmol/L Normal 9-17 [facility] Comment on above: Performed By: #### A BG #### [facility] [address] [place] [id number] Windows Technical Specialist: Ramiro Santillan MD BUN/CRE Ratio 20 Normal 9-20 [facility] Comment on above: Performed By: #### A BG #### [address] [place] [address] Windows Technical Specialist: Ramiro Santillan MD Calcium [Mass/Vol] 8.2 mg/dL Low 8.6-10.4 [facility] Comment on above: Performed By: #### A BG #### [facility] [address] [place] [address] Dr. [place], [place] [phone] Windows Technical Specialist: Ramiro Santillan MD Chloride [Moles/Vol] 100 mmol/L Normal 98-107 [facility] Comment on above: Performed By: #### A BG #### [facility] [address] [place] [address] Dr. [place], [place] [id number] Windows Technical Specialist: Ramiro Santillan MD CO2 [Moles/Vol] 15 mmol/L Low 20-31 [facility] Comment on above: Performed By: #### A BG #### [facility] [address] [place] [address] [place] [address] Windows Technical Specialist: Ramiro Santillan MD Creatinine [Mass/Vol] 0.84 mg/dL Normal 0.70-1.20 [facility] Comment on above: Performed By: #### A BG #### [facility] [address] [place], [place] [phone] Windows Technical Specialist: Ramiro Santillan MD GFR, Amer >60 Normal >60 [facility] Comment on above: Performed By: #### A BG #### [facility] [address] [place], [place] [phone] Windows Technical Specialist: Ramiro Santillan MD GFR,non Amer >60 Normal >60 [facility] Comment on above: Performed By: #### A BG #### [facility] [address] [place], [place] [phone] Windows Technical Specialist: Ramiro Santillan MD Glucose [Mass/Vol] 140 mg/dL High 70-99 [facility] Comment on above: Performed By: #### A BG #### [facility] [address] [place] [address] Dr[address] [place], [place] [id number] Windows Technical Specialist: Ramiro Santillan MD Potassium [Moles/Vol] 3.0 mmol/L Low 3.7-5.3 [facility] Comment on above: Performed By: #### A BG #### [facility] [address] [place] [address] Dr. [place], [place] [phone] Windows Technical Specialist: Ramiro Santillan MD Sodium [Moles/Vol] 128 mmol/L Low 135-144 [facility] Comment on above: Performed By: #### A BG #### [facility] [address] [place], [place] 1100183 Windows Technical Specialist: Ramiro Santillan MD Staging: Normal [facility] Comment on above: Result Comment: Stag e 1: Some kidney damage normal GFR Stage 2: Mild kidney damage GFR 60-89 Stage 3: Moderate kidney damage GFR 30-59 Stage 4: Severe kidney damage GFR 15-29 Stage 5: Severe kidney damage GFR <15 ESRD - chronic treatment by dialysis or transplant Performed By: #### A BG #### [facility] [address] [place] [address] Dr. [place], [place] [phone] Windows Technical Specialist: Ramiro Santillan MD Urea nitrogen [Mass/Vol] 17 mg/dL Normal 6-20 [facility] Comment on above: Performed By: #### A BG #### [facility] [address] [place] [address] [address] [place], [place] [id number] Windows Technical Specialist: Ramiro Santillan MD CBC with Diffon 10-28-2021 Abs. Basophil 0.24 k/uL High 0.0-0.2 [facility] Comment on above: Performed By: #### B C #### [address] [address] Windows Technical Specialist: Ramiro Mark MD [facility] [address] [place] [address] [place] [place] [phone] Windows Technical Specialist: Ramiro Santillan MD Abs.Imm.Granulocyte 0.00 k/uL Normal 0.00-0.30 [facility] Comment on above: Performed By: #### B C #### [address] [address] Windows Technical Specialist: Ramiro Mark MD [facility] [address] [place] [address] Dr. [place], [facility]83 Windows Technical Specialist: Ramiro Santillan MD Abs.Neutrophil (Seg) 19.75 k/uL High 1.50-8.10 [facility] Comment on above: Performed By: #### B C #### [address] [address] Windows Technical Specialist: Ramiro Mark MD [facility] [address] [place] [address] [place] [address] Windows Technical Specialist: Ramiro Santillan MD Basophils/100 WBC (Bld) 1 % Normal 0-2 [facility] Comment on above: Performed By: #### B C #### [address] [address] Windows Technical Specialist: Ramiro Mark MD [facility] [address] [place] [address] [address] [place] [phone] Windows Technical Specialist: Ramiro Santillan MD Eosinophils (Bld) [#/Vol] 0.00 10*3/uL Normal 0.00-0.4 4 [facility] Comment on above: Performed By: #### B C #### [facility] [address] [place] [address] Windows Technical Specialist: Ramiro Mark MD [facility] [address] [place] [address] [place] [place], [place] [phone] Windows Technical Specialist: Ramiro Santillan MD Eosinophils/100 WBC (Bld) 0 % Low 1-4 [facility] Comment on above: Performed By: #### B C #### [facility] [address] [place] [address] Windows Technical Specialist: Ramiro Mark MD [facility] [address] [place] [address] [address] [place] [phone] Windows Technical Specialist: Ramiro Santillan MD Immature granulocytes/100 WBC (Bld) 0 % Normal 0 [facility] Comment on above: Performed By: #### B C #### [facility] [address] [place] [address] Windows Technical Specialist: Ramiro Mark MD [facility] [address] [place] [address] [address] [phone] Windows Technical Specialist: Ramiro Santillan MD Lymphocytes (Bld) [#/Vol] 0.95 10*3/uL Low 1.10-3.7 0 [facility] Comment on above: Performed By: #### B C #### [facility] [address] [place] [address] Windows Technical Specialist: Ramiro Mark MD [facility] [address] [place] [address] [address] [place] [phone] Windows Technical Specialist: Ramiro Santillan MD Lymphocytes/100 WBC (Bld) 4 % Low 24-43 [facility] Comment on above: Performed By: #### B C #### [address] [address] Windows Technical Specialist: Ramiro Mark MD [address] [place] [address] Windows Technical Specialist: Ramiro Santillan MD Monocytes (Bld) [#/Vol] 2.86 10*3/uL High 0.10-1.20 [facility] Comment on above: Performed By: #### B C #### [address] [address] Windows Technical Specialist: Ramiro Mark MD [address] [place], [place] [phone] Windows Technical Specialist: Ramiro Santillan MD Monocytes/100 WBC (Bld) 12 % Normal 3-12 [facility] Comment on above: Performed By: #### B C #### [address] [address] Windows Technical Specialist: Ramiro Mark MD [address] [place] [address] Windows Technical Specialist: Ramiro Santillan MD Morphology Everardo (Bld) [Interp] Normal Normal [facility] Comment on above: Performed By: #### B C #### [facility] [address] [place] [address] Windows Technical Specialist: Ramiro Mark MD [address] [place], [facility]83 Windows Technical Specialist: Ramiro Santillan MD Neutrophil (Seg) 83 % High 36-65 [facility] Comment on above: Performed By: #### B C #### [facility] [address] [place] [address] Windows Technical Specialist: Ramiro Mark MD [address] [place] [address] Windows Technical Specialist: Ramiro Santillan MD Erythrocyte distribution width (RBC) [Ratio] 13.1 % Normal 11.8-14.4 [facility] Comment on above: Performed By: #### B C #### [facility] [address] [place] [address] Windows Technical Specialist: Ramiro Mark MD [facility] [address] [place] [address] [place] [address] Windows Technical Specialist: Ramiro Santillan MD Hematocrit (Bld) [Volume fraction] 33.7 % Low 40.7-50.3 [facility] Comment on above: Performed By: #### B C #### [facility] [address] [place] [address] Windows Technical Specialist: Ramiro Mark MD [address] [place] [address] Windows Technical Specialist: Ramiro Santillan MD Hemoglobin (Bld) [Mass/Vol] 11.7 g/dL Low 13.0-17. 0 [facility] Comment on above: Performed By: #### B C #### [facility] [address] [place] [address] Windows Technical Specialist: Ramiro Mark MD [facility] [address] [place] [address] [place] [address] Windows Technical Specialist: Ramiro Santillan MD MCH (RBC) [Entitic mass] 29.4 pg Normal 25.2-33.5 [facility] Comment on above: Performed By: #### B C #### [facility] [address] [place] [address] Windows Technical Specialist: Ramiro Mark MD [facility] [address] [place] [address] [place] [address] Windows Technical Specialist: Ramiro Santillan MD MCHC (RBC) [Mass/Vol] 34.7 g/dL Normal 28.4-34.8 [facility] Comment on above: Performed By: #### B C #### [facility] [address] [place] [address] Windows Technical Specialist: Ramiro Mark MD [address] [place], [place] [phone] Windows Technical Specialist: Ramiro Santillan MD MCV (RBC) [Entitic vol] 84.7 fL Normal 82.6-102.9 [facility] Comment on above: Performed By: #### B C #### [place] [address] [place] [address] Windows Technical Specialist: Ramiro Mark MD [address] [place] [phone] Windows Technical Specialist: Ramiro Santillan MD NRBC Automated 0.0 per 100 WBC Normal 0.0 [facility] Comment on above: Performed By: #### B C #### [address] [address] Windows Technical Specialist: Ramiro Mark MD [address] [place] [address] Windows Technical Specialist: Ramiro Santillan MD Platelet mean volume (Bld) [Entitic vol] 9.2 fL Normal 8.1-13.5 [facility] Comment on above: Performed By: #### B C #### [facility] [address] [place] [address] Windows Technical Specialist: Ramiro Mark MD [address] [place] [phone] Windows Technical Specialist: Ramiro Santillan MD Platelets (Bld) [#/Vol] 235 10*3/uL Normal 138-453 [facility] Comment on above: Performed By: #### B C #### [facility] [address] [place] [address] Windows Technical Specialist: Ramiro Mark MD [address] [place] [phone] Windows Technical Specialist: Ramiro Santillan MD RBC (Bld) [#/Vol] 3.98 10*6/uL Low 4.21-5.77 [facility] Comment on above: Performed By: #### B C #### [address] [address] Windows Technical Specialist: Ramiro Mark MD [facility] [address] [place] [address] [place] [address] Windows Technical Specialist: Ramiro Santillan MD WBC (Bld) [#/Vol] 23.8 10*3/uL High 3.5-11.3 [facility] Comment on above: Performed By: #### B C #### [address] [address] Windows Technical Specialist: Ramiro Mark MD [address] [place] [address] Windows Technical Specialist: Ramiro Santillan MD Auto Diff Performed NOT REPORTED Normal [facility] Comment on above: Performed By: #### B C #### [address] [address] Windows Technical Specialist: Ramiro Mark MD [address] [place] [address] Windows Technical Specialist: Ramiro Santillan MD Platelet Comment NOT REPORTED Normal [facility] Comment on above: Performed By: #### B C #### [address] [address] Windows Technical Specialist: Ramiro Mark MD [address] [place] [address] Windows Technical Specialist: Ramiro Santillan MD RBC morphology finding Nom (Bld) NOT REPORTED Normal [facility] Comment on above: Performed By: #### B C #### [address] [address] Windows Technical Specialist: Ramiro Mark MD [facility] [address] [place] [address] [place] [address] Windows Technical Specialist: Ramiro Santillan MD WBC Morphology NOT REPORTED Normal [facility] Comment on above: Performed By: #### B C #### [place] [address] [place] [address] Windows Technical Specialist: Ramiro Mark MD [facility] [address] [place] [phone] Windows Technical Specialist: Ramiro Santillan MD Creatine Kinaseon 10-28-2021 CK [Catalytic activity/Vol] 49 U/L Normal 39-308 [facility] Comment on above: Performed By: #### F LUAD #### [facility] [address] [place] [phone] Windows Technical Specialist: Ramiro Santillan MD Hemoglobin A1Con 10-28-2021 Glucose [Mass/Vol] 413 mg/dL Normal [facility] Comment on above: Result Comment: The ADA and AACC recommend providing the estimated average glucose result to permit better patient understanding of their HBA1c result. Performed By: #### L IPR #### [address] [address] Windows Technical Specialist: Ramiro Mark MD HbA1c (Bld) [Mass fraction] 16.0 % High 4.0-6.0 [facility] Comment on above: Performed By: #### L IPR #### [address] [address] Windows Technical Specialist: Ramiro Mark MD K (Potassium)on 10-28-2021 Potassium [Moles/Vol] 3.6 mmol/L Low 3.7-5.3 [facility] Comment on above: Performed By: #### L IPR #### [address] [address] Windows Technical Specialist: Ramiro Mark MD Magnesiumon 10-28-2021 Magnesium [Mass/Vol] 2.1 mg/dL Normal 1.6-2.6 [facility] Comment on above: Performed By: #### M G BMP, CHELO #### [facility] [address] [place] [phone] Windows Technical Specialist: Ramiro Santillan MD Magnesium [Mass/Vol] 1.9 mg/dL Normal 1.6-2.6 [facility] Comment on above: Performed By: #### B C #### [facility] [address] [place], [place] 1879108 Windows Technical Specialist: Ramiro Mark MD [address] [place] [address] Windows Technical Specialist: Ramiro Santillan MD Magnesium [Mass/Vol] 1.9 mg/dL Normal 1.6-2.6 [facility] Comment on above: Performed By: #### A BG #### [address] [place] [address] Windows Technical Specialist: Ramiro Santillan MD Phosphorus, Inorg.on 022 Phosphorus, Inorg. 1.7 mg/dL Low 2.5-4.5 [facility] Comment on above: Performed By: #### M G, BMP, CHELO #### [address] [place] [address] Windows Technical Specialist: Ramiro Santillan MD Phosphorus, Inorg. 2.1 mg/dL Low 2.5-4.5 [facility] Comment on above: Performed By: #### B C #### [facility] [address] [place], [place] [phone] Windows Technical Specialist: Ramiro Mark MD [address] [place] [address] Windows Technical Specialist: Ramiro Santillan MD Phosphorus, Inorg. 1.8 mg/dL Low 2.5-4.5 [facility] Comment on above: Performed By: #### A BG #### [address] [place] [address] Windows Technical Specialist: Ramiro Santillan MD XR CHEST (2 VW)on 10-28-2021 XR CHEST (2 VW) EXAMINATION: TWO XRAY VIEWS OF THE CHEST 10/28/2021 1:07 pm COMPARISON: None. HISTORY: ORDERING SYSTEM PROVIDED HISTORY: shortness of breath TECHNOLOGIST PROVIDED HISTORY: shortness of breath FINDINGS: Considering the nature of this portable study, and mild hypoinflation, the heart is normal in size. No evidence of pneumothorax, pleural effusion, infiltrate, or abnormal lung mass. The patient may have a degree of kyphosis or is simply anteflexed. The central pulmonary vascularity appears normal. Osseous structures are unremarkable in appearance. IMPRESSION: No evidence of acute cardiopulmonary process. Interpreted by: Lisset Raya MD Signed by: Lisset Raya MD 10/28/21 Final result Normal [facility] Arterial Blood Gaseson 10-27 Jody Test PASS Normal [facility] Comment on above: Performed By: #### L IPR #### [address] [address] Windows Technical Specialist: Ramiro Mark MD Body Temp. 37.0 [facility] Comment on above: Performed By: #### L IPR #### [address] [address] Windows Technical Specialist: Ramiro Mark MD HCO3 (Bld) [Moles/Vol] 3.1 mmol/L Low 22-26 [facility] Comment on above: Performed By: #### L IPR #### [facility] [address] [place] [address] Windows Technical Specialist: Ramiro Mark MD Negative Base Excess 23.8 mmol/L High 0.0-2.0 [facility] Comment on above: Performed By: #### L IPR #### [facility] [address] [place] [address] Windows Technical Specialist: Ramiro Mark MD O2 Device/Flow/% ROOM AIR [facility] Comment on above: Performed By: #### L IPR #### [facility] [address] [place] [address] Windows Technical Specialist: Ramiro Mark MD Oxygen (Bld) [Partial pressure] 138.7 mm[Hg] High 80-100 [facility] Comment on above: Performed By: #### L IPR #### [facility] [address] [place] [address] Windows Technical Specialist: Ramiro Mark MD Oxygen saturation in Blood 98.0 % Normal 95-98 [facility] Comment on above: Performed By: #### L IPR #### [facility] [address] [place] [address] Windows Technical Specialist: Ramiro Mark MD pCO2 9.9 mmHg Critically low 35-45 [facility] Comment on above: Performed By: #### L IPR #### [address] [address] Windows Technical Specialist: Ramiro Mark MD pH (Bld) 7.112 [pH] Critically low 7.35-7.45 [facility] Comment on above: Performed By: #### L IPR #### [facility] [employer] [address] [place] [address] Windows Technical Specialist: Ramiro Mark MD Pt. Position SEMI-FOWLERS Normal [facility] Comment on above: Performed By: #### L IPR #### [address] [address] Windows Technical Specialist: Ramiro Mark MD Carboxy Hgb NOT REPORTED Normal 0-5 [facility] Comment on above: Performed By: #### L IPR #### [facility] [address] [place] [address] Windows Technical Specialist: Ramiro Mark MD FIO2 NOT REPORTED Normal [facility] Comment on above: Performed By: #### L IPR #### [facility] [address] [place] [address] Windows Technical Specialist: Ramiro Mark MD Methemoglobin NOT REPORTED Normal 0.0-1.9 [facility] Comment on above: Performed By: #### L IPR #### [address] [address] Windows Technical Specialist: Ramiro Mark MD Mode NOT REPORTED Normal [facility] Comment on above: Performed By: #### L IPR #### [address] [address] Windows Technical Specialist: Ramiro Mark MD Notification Time NOT REPORTED Normal [facility] Comment on above: Performed By: #### L IPR #### [facility] [employer] [address] [place] [address] Windows Technical Specialist: Ramiro Mark MD Notification: NOT REPORTED Normal [facility] Comment on above: Performed By: #### L IPR #### [address] [address] Windows Technical Specialist: Ramiro Mark MD Oxyhemoglobin NOT REPORTED Normal 95.0-98.0 [facility] Comment on above: Performed By: #### L IPR #### [address] [address] Windows Technical Specialist: Ramiro Mark MD pCO2 Adj'd for Temp NOT REPORTED Normal [facility] Comment on above: Performed By: #### L IPR #### [address] [address] Windows Technical Specialist: Ramiro Mark MD PEEP/CPAP NOT REPORTED Normal [facility] Comment on above: Performed By: #### L IPR #### [facility] [employer] [address] [place] [address] Windows Technical Specialist: Ramiro Mark MD pH Adjst'd for Temp. NOT REPORTED Normal 7.350-7.450 [facility] Comment on above: Performed By: #### L IPR #### [address] [address] Windows Technical Specialist: Ramiro Mark MD pO2 Adjst'd for Temp NOT REPORTED Normal 80.0-100.0 [facility] Comment on above: Performed By: #### L IPR #### [facility] [address] [place] [address] Windows Technical Specialist: Ramiro Mark MD Positive Base Excess NOT REPORTED Normal 0.0-2.0 [facility] Comment on above: Performed By: #### L IPR #### [facility] [address] [place] [address] Windows Technical Specialist: Ramiro Mark MD PSV NOT REPORTED Normal [facility] Comment on above: Performed By: #### L IPR #### [facility] [address] [place] [address] Windows Technical Specialist: Ramiro Mark MD Respiratory Rate NOT REPORTED Normal [facility] Comment on above: Performed By: #### L IPR #### [facility] [address] [place] [address] Windows Technical Specialist: Ramiro Mark MD Set Rate NOT REPORTED Normal [facility] Comment on above: Performed By: #### L IPR #### [facility] [address] [place] [address] Windows Technical Specialist: Ramiro Mark MD Site Drawn NOT REPORTED Normal [facility] Comment on above: Performed By: #### L IPR #### [facility] [address] [place] [address] Windows Technical Specialist: Ramiro Mark MD Text for Respiratory NOT REPORTED Normal [facility] Comment on above: Performed By: #### L IPR #### [facility] [address] [place] [address] Windows Technical Specialist: Ramiro Mark MD Total Hb NOT REPORTED Normal 12.0-16.0 [facility] Comment on above: Performed By: #### L IPR #### [facility] [address] [place] [address] Windows Technical Specialist: Ramiro Mark MD Total Rate NOT REPORTED Normal [facility] Comment on above: Performed By: #### L IPR #### [facility] [address] [place], [place] [phone] Windows Technical Specialist: Ramiro Mark MD VT NOT REPORTED [facility] Comment on above: Performed By: #### L IPR #### [facility] [address] [place], [place] [phone] Windows Technical Specialist: Ramiro Mark MD Basic Metabolic Profon 10-27 (cont.) Normal [facility] Comment on above: Result Comment: Aver age GFR for 40-49 years old: 99 mL/min/1.73sq m Chronic Kidney Disease: <60 mL/min/1.73sq m Kidney failure: <15 mL/min/1.73sq m eGFR calculated using average adult body mass. Additional eGFR calculator available at: http://www.ScoreStreak/multiple_crcl_2012.htm Performed By: #### F LUAD #### [facility] [address] [place] [address] [place] [address] Windows Technical Specialist: Ramiro Santillan MD Anion gap [Moles/Vol] 21 mmol/L High 9-17 [facility] Comment on above: Performed By: #### F LUAD #### [facility] [address] [place] [address] [place] [address] Windows Technical Specialist: Ramiro Santillan MD BUN/CRE Ratio 21 High 9-20 [facility] Comment on above: Performed By: #### F LUAD #### [facility] [address] [place], [place] [address] Windows Technical Specialist: Ramiro Santillan MD Calcium [Mass/Vol] 8.2 mg/dL Low 8.6-10.4 [facility] Comment on above: Performed By: #### F LUAD #### [facility] [address] [place] [address] [employer] Technical Specialist: Ramiro Santillan MD Chloride [Moles/Vol] 95 mmol/L Low 98-107 [facility] Comment on above: Performed By: #### F MAKSIMAD #### [facility] [address] [place], [place] [id number] Windows Technical Specialist: Ramiro Santillan MD CO2 [Moles/Vol] 8 mmol/L Critically low 20-31 [facility] Comment on above: Performed By: #### F LUAD #### [facility] [address] [place], [place] [id number] [employer] Technical Specialist: Ramiro Santillan MD Creatinine [Mass/Vol] 1.16 mg/dL Normal 0.70-1.20 [facility] Comment on above: Performed By: #### F LUAD #### [facility] [address] [place], [place] 540[address]83 Windows Technical Specialist: Ramiro Santillan MD GFR, Amer >60 Normal >60 [facility] Comment on above: Performed By: #### F LUAD #### [facility] [address] [place], [place] [id number] Windows Technical Specialist: Ramiro Santillan MD GFR,non Amer >60 Normal >60 [facility] Comment on above: Performed By: #### F LUAD #### [facility] [address] [place], [place] [id number] Windows Technical Specialist: Ramiro Santillan MD Glucose [Mass/Vol] 184 mg/dL High 70-99 [facility] Comment on above: Performed By: #### F LUAD #### [facility] [address] [place], [place] 9554383 Windows Technical Specialist: Ramiro Santillan MD Potassium [Moles/Vol] 3.8 mmol/L Normal 3.7-5.3 [facility] Comment on above: Performed By: #### F LUAD #### [facility] [address] [place], [place] 8[address]83 [employer] Specialist: Ramiro Santillan MD Sodium [Moles/Vol] 124 mmol/L Low 135-144 [facility] Comment on above: Performed By: #### F LUAD #### [facility] [address] [place] [id number] Windows Technical Specialist: Ramiro Santillan MD Staging: Normal [facility] Comment on above: Result Comment: Stag e 1: Some kidney damage normal GFR Stage 2: Mild kidney damage GFR 60-89 Stage 3: Moderate kidney damage GFR 30-59 Stage 4: Severe kidney damage GFR 15-29 Stage 5: Severe kidney damage GFR <15 ESRD - chronic treatment by dialysis or transplant Performed By: #### F LUAD #### [facility] [address] [place], [facility]83 [employer] Specialist: Ramiro Santillan MD Urea nitrogen [Mass/Vol] 24 mg/dL High 6-20 [facility] Comment on above: Performed By: #### F LUAD #### [facility] [address] [place], [facility]83 [employer] Specialist: Ramiro Santillan MD Beta Hydroxybutyrateon 10-27 5 Beta Hydroxybutyrate 9.74 mmol/L High 0.02-0.27 [facility] Comment on above: Performed By: #### C DP, CMPX #### [address] [place], [facility]83 [employer] Specialist: Ramiro Santillan MD CBC with Diffon 10-27-2021 Abs. Basophil 0.00 k/uL Normal 0.0-0.2 [facility] Comment on above: Performed By: #### C DP, CMPX #### [facility] [address] [place] [address] Windows Technical Specialist: Ramiro Santillan MD Abs.Imm.Granulocyte 0.00 k/uL Normal 0.00-0.30 [facility] Comment on above: Performed By: #### C DP, CMPX #### [facility] [address] [place] [facility]83 [employer] Specialist: Ramiro Santillan MD Abs.Neutrophil (Seg) 27.35 k/uL High 1.50-8.10 [facility] Comment on above: Performed By: #### C DP, CMPX #### [facility] [address] [place], [place] 260[address]83 Windows Technical Specialist: Ramiro Santillan MD Basophils/100 WBC (Bld) 0 % Normal 0-2 [facility] Comment on above: Performed By: #### C DP, CMPX #### [facility] [address] [place] [address] [employer] Technical Specialist: Ramiro Santillan MD Eosinophils (Bld) [#/Vol] 0.00 10*3/uL Normal 0.00-0.4 4 [facility] Comment on above: Performed By: #### C DP, CMPX #### [facility] [address] [place] [address] [address] [place], [place] 540[address]83 [employer] Specialist: Ramiro Santillan MD Eosinophils/100 WBC (Bld) 0 % Low 1-4 [facility] Comment on above: Performed By: #### C DP, CMPX #### [address] [place], [place] [id number] [employer] Technical Specialist: Ramiro Santillan MD Immature granulocytes/100 WBC (Bld) 0 % Normal 0 [facility] Comment on above: Performed By: #### C DP, CMPX #### [facility] [address] [place] [address] [place], [place] [id number] [employer] Specialist: Ramiro Santillan MD Lymphocytes (Bld) [#/Vol] 0.29 10*3/uL Low 1.10-3.7 0 [facility] Comment on above: Performed By: #### C DP, CMPX #### [facility] [address] [place], [place] 8[address]83 [employer] Specialist: Ramiro Santillan MD Lymphocytes/100 WBC (Bld) 1 % Low 24-43 [facility] Comment on above: Performed By: #### C DP, CMPX #### [facility] [address] [place], [place] 9[address]83 [employer] Specialist: Ramiro Santillan MD Monocytes (Bld) [#/Vol] 1.46 10*3/uL High 0.10-1.20 [facility] Comment on above: Performed By: #### C DP, CMPX #### [facility] [address] [place], [place] 27[address]83 Windows Technical Specialist: Ramiro Santillan MD Monocytes/100 WBC (Bld) 5 % Normal 3-12 [facility] Comment on above: Performed By: #### C DP, CMPX #### [facility] [address] [place], [place] [id number] Windows Technical Specialist: Ramiro Santillan MD Morphology Everardo (Bld) [Interp] ANISOCYTOSIS Normal [facility] Comment on above: Result Comment: PRES ENT Performed By: #### C DP, CMPX #### [facility] [address] [place], [place] 3527383 Windows Technical Specialist: Ramiro Santillan MD Neutrophil (Seg) 94 % High 36-65 [facility] Comment on above: Performed By: #### C DP, CMPX #### [facility] [address] [place], [facility]83 [employer] Specialist: Ramiro Santillan MD Erythrocyte distribution width (RBC) [Ratio] 13.5 % Normal 11.8-14.4 [facility] Comment on above: Performed By: #### C DP, CMPX #### [facility] [address] [place] [address] [employer] Technical Specialist: Ramiro Santillan MD Hematocrit (Bld) [Volume fraction] 44.3 % Normal 40.7-50.3 [facility] Comment on above: Performed By: #### C DP, CMPX #### [facility] [address] [place] [address] [employer] Technical Specialist: Ramiro Santillan MD Hemoglobin (Bld) [Mass/Vol] 14.5 g/dL Normal 13.0-17. 0 [facility] Comment on above: Performed By: #### C DP, CMPX #### [address] [place] [address] [employer] Technical Specialist: Ramiro Santillan MD MCH (RBC) [Entitic mass] 29.2 pg Normal 25.2-33.5 [facility] Comment on above: Performed By: #### C DP, CMPX #### [address] [place] [address] Windows Technical Specialist: Ramiro Santillan MD MCHC (RBC) [Mass/Vol] 32.7 g/dL Normal 28.4-34.8 [facility] Comment on above: Performed By: #### C DP, CMPX #### [address] [place], [place] 144[address]83 [employer] Technical Specialist: Ramiro Santillan MD MCV (RBC) [Entitic vol] 89.3 fL Normal 82.6-102.9 [facility] Comment on above: Performed By: #### C DP, CMPX #### [address] [place] [address] Windows Technical Specialist: Ramiro Santillan MD NRBC Automated 0.0 per 100 WBC Normal 0.0 [facility] Comment on above: Performed By: #### C DP, CMPX #### [address] [place] [address] [employer] Technical Specialist: Ramiro Santillan MD Platelet mean volume (Bld) [Entitic vol] 8.9 fL Normal 8.1-13.5 [facility] Comment on above: Performed By: #### C DP, CMPX #### [address] [place] [address] Windows Technical Specialist: Ramiro Santillan MD Platelets (Bld) [#/Vol] 307 10*3/uL Normal 138-453 [facility] Comment on above: Performed By: #### C DP, CMPX #### [facility] [address] [place], [place] 6114383 Windows Technical Specialist: Ramiro Santillan MD RBC (Bld) [#/Vol] 4.96 10*6/uL Normal 4.21-5.77 [facility] Comment on above: Performed By: #### C DP, CMPX #### [facility] [address] [place], [place] 115[address]3 [employer] Technical Specialist: Ramiro Santillan MD WBC (Bld) [#/Vol] 29.1 10*3/uL High 3.5-11.3 [facility] Comment on above: Performed By: #### C DP, CMPX #### [facility] [address] [place] [address] [employer] Technical Specialist: Ramiro Santillan MD Auto Diff Performed NOT REPORTED Normal [facility] Comment on above: Performed By: #### C DP, CMPX #### [address] [place], [place] 5300483 Windows Technical Specialist: Ramiro Santillan MD Platelet Comment NOT REPORTED Normal [facility] Comment on above: Performed By: #### C DP, CMPX #### [facility] [address] [place], [place] 606[address]83 Windows Technical Specialist: Ramiro Santillan MD RBC morphology finding Nom (Bld) NOT REPORTED Normal [facility] Comment on above: Performed By: #### C DP, CMPX #### [facility] [address] [place], [place] 1193583 [employer] Technical Specialist: Ramiro Santillan MD WBC Morphology NOT REPORTED Normal [facility] Comment on above: Performed By: #### C DP, CMPX #### [facility] [address] [place] [address] Windows Technical Specialist: Ramiro Santillan MD Comp Metabolic Pr/rfx MGon 0 10-27-2021 Anion Gap Unable to calculate anion gap due to CO2 less than 6. Normal 9-17 [facility] Comment on above: Performed By: #### C DP, CMPX #### [facility] [address] [place] [address] Windows Technical Specialist: Ramiro Santillan MD CO2 [Moles/Vol] mmol/L Critically low 20-31 [facility] Comment on above: Performed By: #### C DP, CMPX #### [facility] [address] [place] [address] [employer] Technical Specialist: Ramiro Santillan MD (cont.) Normal [facility] Comment on above: Result Comment: Aver age GFR for 40-49 years old: 99 mL/min/1.73sq m Chronic Kidney Disease: <60 mL/min/1.73sq m Kidney failure: <15 mL/min/1.73sq m eGFR calculated using average adult body mass. Additional eGFR calculator available at: http://www.Balls.ie.StyleCaster/multiple_crcl_2011.htm Performed By: #### C DP, CMPX #### [address] [place] [address] [employer] Technical Specialist: Ramiro Santillan MD Albumin [Mass/Vol] 3.6 g/dL Normal 3.5-5.2 [facility] Comment on above: Performed By: #### C DP, CMPX #### [facility] [address] [place] [address] Windows Technical Specialist: Ramiro Santillan MD Albumin/Glob Ratio 0.7 Low 1.0-2.5 [facility] Comment on above: Performed By: #### C DP, CMPX #### [facility] [address] [place], [place] 047[address]83 [employer] Technical Specialist: Ramiro Santillan MD Alkaline Phos 135 U/L High 40-129 [facility] Comment on above: Performed By: #### C DP, CMPX #### [facility] [address] [place], [place] 5857683 Windows Technical Specialist: Ramiro Santillan MD ALT [Catalytic activity/Vol] 9 U/L Normal 5-41 [facility] Comment on above: Performed By: #### C DP, CMPX #### [facility] [address] [place], [place] 9106383 Windows Technical Specialist: Ramiro Santillan MD AST [Catalytic activity/Vol] 13 U/L Normal <40 [facility] Comment on above: Performed By: #### C DP, CMPX #### [facility] [address] [place], [place] 2333983 Windows Technical Specialist: Ramiro Santillan MD Bilirubin [Mass/Vol] 0.22 mg/dL Low 0.3-1.2 [facility] Comment on above: Performed By: #### C DP, CMPX #### [facility] [address] [place], [place] [address]83 Windows Technical Specialist: Ramiro Santillan MD BUN/CRE Ratio 17 Normal 9-20 [facility] Comment on above: Performed By: #### C DP, CMPX #### [facility] [address] [place], [place] 389[address]183 Windows Technical Specialist: Ramiro Santillan MD Calcium [Mass/Vol] 9.4 mg/dL Normal 8.6-10.4 [facility] Comment on above: Performed By: #### C DP, CMPX #### [facility] [address] [place], [place] [address]32883 Windows Technical Specialist: Ramiro Santillan MD Chloride [Moles/Vol] 87 mmol/L Low 98-107 [facility] Comment on above: Performed By: #### C DP, CMPX #### [facility] [address] [place], [place] 5986683 Windows Technical Specialist: Ramiro Santillan MD Creatinine [Mass/Vol] 1.54 mg/dL High 0.70-1.20 [facility] Comment on above: Performed By: #### C DP, CMPX #### [facility] [address] [place], [place] [phone] Windows Technical Specialist: Ramiro Santillan MD GFR, Amer 59 mL/min Low >60 [facility] Comment on above: Performed By: #### C DP, CMPX #### [facility] [address] [place], [place] 9539483 Windows Technical Specialist: Ramiro Santillan MD GFR,non Amer 49 mL/min Low >60 [facility] Comment on above: Performed By: #### C DP, CMPX #### [facility] [address] [place], [place] 8174683 Windows Technical Specialist: Ramiro Santillan MD Glucose [Mass/Vol] 398 mg/dL High 70-99 [facility] Comment on above: Performed By: #### C DP, CMPX #### [facility] [address] [place], [place] 032[address]83 Windows Technical Specialist: Ramiro Santillan MD Potassium [Moles/Vol] 5.4 mmol/L High 3.7-5.3 [facility] Comment on above: Performed By: #### C DP, CMPX #### [facility] [address] [place], [place] 984[address]83 Windows Technical Specialist: Ramiro Santillan MD Protein [Mass/Vol] 8.6 g/dL High 6.4-8.3 [facility] Comment on above: Performed By: #### C DP, CMPX #### [facility] [address] [place], [place] [phone] Windows Technical Specialist: Ramiro Santillan MD Sodium [Moles/Vol] 127 mmol/L Low 135-144 [facility] Comment on above: Performed By: #### C DP, CMPX #### [facility] [address] [place] [address] Windows Technical Specialist: Ramiro Santillan MD Staging: Normal [facility] Comment on above: Result Comment: Stag e 1: Some kidney damage normal GFR Stage 2: Mild kidney damage GFR 60-89 Stage 3: Moderate kidney damage GFR 30-59 Stage 4: Severe kidney damage GFR 15-29 Stage 5: Severe kidney damage GFR <15 ESRD - chronic treatment by dialysis or transplant Performed By: #### C SRI, CMPX #### [facility] [address] [place] [address] [place] [address] Windows Technical Specialist: Ramiro Santillan MD Urea nitrogen [Mass/Vol] 26 mg/dL High 6-20 [facility] Comment on above: Performed By: #### C SRI, CMPX #### [facility] [address] [place] [address] [place] [address] [employer] Technical Specialist: Ramiro Santillan MD Flu A/B Ag Detectionon 10-27 Flu A/B Ag Detection Specimen Description .NASOPHARYNGEAL SWAB Special Requests NOT REPORTED Direct Exam NEGATIVE for Influenza A + B antigens. PCR testing to confirm this result is available upon request. Specimen will be saved in the laboratory for 7 days. Please call [phone] if PCR testing is indicated. Report Status FINAL 10/27/2021 [facility] Comment on above: Performed By: #### F LUAD #### [facility] [address] [place] [address] [place] [address] Windows Technical Specialist: Ramiro Santillan MD Lactic Acidon 10-27-2021 Lactate [Moles/Vol] 2.0 mmol/L Normal 0.5-2.2 [facility] Comment on above: Performed By: #### B C #### [address] [id number] Windows Technical Specialist: Ramiro Mark MD [facility] [address] [place], [place] 7453383 [employer] Technical Specialist: Ramiro Santillan MD Magnesiumon 10-27-2021 Magnesium [Mass/Vol] 2.0 mg/dL Normal 1.6-2.6 [facility] Comment on above: Performed By: #### F LUAD #### [address] [place] [phone] Windows Technical Specialist: Ramiro Santillan MD Phosphorus, Inorg.on 022 Phosphorus, Inorg. 1.3 mg/dL Low 2.5-4.5 [facility] Comment on above: Performed By: #### F LUAD #### [address] [place], [place] 7[address]83 Windows Technical Specialist: Ramiro Santillan MD [id number] 10-27-2021 SARS-CoV-2 (COVID-19) RNA MEETA+probe Ql (Unsp spec) Not detected Normal NOTDET [facility] Comment on above: Result Comment: Rapid NAAT: The specimen is NEGATIVE for SARS-CoV-2, the novel coronavirus associated with COVID-19. The ID NOW COVID-19 assay is designed to detect the virus that causes COVID-19 in patients with signs and symptoms of infection who are suspected of COVID-19. An individual without symptoms of COVID-19 and who is not shedding SARS-CoV-2 virus would expect to have a negative (not detected) result in this assay. Negative results should be treated as presumptive and, if inconsistent with clinical signs and symptoms or necessary for patient management, should be tested with an alternative molecular assay. Negative results do not preclude SARS-CoV-2 infection and should not be used as the sole basis for patient management decisions. Fact sheet for Healthcare Providers: https://www.fda.gov/media/353722/download Fact sheet for Patients: https://www.fda.gov/media/503432/download Methodology: Isothermal Nucleic Acid Amplification Performed By: #### C OVRB #### [address] [place] [address] Windows Technical Specialist: Ramiro Santillan MD UA w/Reflex Cultureon 2021 Bilirubin, SemiQt,Ur SMALL Abnormal NEG [facility] Comment on above: Performed By: #### A BG #### [facility] [address] [place], [place] [id number] Windows Technical Specialist: Ramiro Santillan MD Blood, Urine 2+ Abnormal NEG [facility] Comment on above: Performed By: #### A BG #### [facility] [address] [place], [place] 0780483 Windows Technical Specialist: Ramiro Santillan MD Clarity (U) SLIGHTLY CLOUDY Abnormal CLEAR [facility] Comment on above: Performed By: #### A BG #### [facility] [address] [place], [place] 5806183 Windows Technical Specialist: Ramiro Santillan MD Color (U) Yellow Normal YEL [facility] Comment on above: Performed By: #### A BG #### [facility] [address] [place], [place] 4300283 Windows Technical Specialist: Ramiro Santillan MD Glucose Ql (U) 2+ Abnormal NEG [facility] Comment on above: Performed By: #### A BG #### [facility] [address] [place], [place] 194[address]83 Windows Technical Specialist: Ramiro Santillan MD Ketones Ql (U) 4+ Abnormal NEG [facility] Comment on above: Performed By: #### A BG #### [facility] [address] [place], [place] 50[address]83 Windows Technical Specialist: Ramiro Santillan MD Leukocyte esterase Test strip Ql (U) Negative Normal [facility] Comment on above: Performed By: #### A BG #### [facility] [address] [place] [address] Windows Technical Specialist: Ramiro Santillan MD Nitrite,Ur Negative Normal NEG [facility] Comment on above: Performed By: #### A BG #### [facility] [address] [place] [address] Windows Technical Specialist: Ramiro Santillan MD PH,Ur 6.0 Normal 5.0-9.0 [facility] Comment on above: Performed By: #### A BG #### [facility] [address] [place] [address] Windows Technical Specialist: Ramiro Santillan MD Protein Ql (U) 2+ Abnormal NEG [facility] Comment on above: Performed By: #### A BG #### [address] [place] [address] [employer] Technical Specialist: Ramiro Santillan MD Spec. Platinum,Ur >1.030 High 1.010-1.020 [facility] Comment on above: Performed By: #### A BG #### [facility] [address] [place] [address] Windows Technical Specialist: Ramiro Santillan MD Urobilinogen,Ur Normal Normal NORM [facility] Comment on above: Performed By: #### A BG #### [address] [place] [address] Windows Technical Specialist: Ramiro Santillan MD Comment NOT REPORTED Normal [facility] Comment on above: Performed By: #### A BG #### [facility] [address] [place] [address] Windows Technical Specialist: Ramiro Santillan MD Urinalysis,Microon 2 ----- Normal [facility] Comment on above: Performed By: #### A BG #### [facility] [address] [place], [place] 399[address]83 Windows Technical Specialist: Ramiro Santillan MD Casts HYALINE Normal [facility] Comment on above: Performed By: #### A BG #### [facility] [address] [place], [place] [address]3 Windows Technical Specialist: aRmiro Santillan MD Epithelial cells LM Ql (Urine sed) 0 TO 2 Normal 0-5 [facility] Comment on above: Performed By: #### A BG #### [facility] [address] [place], [place] [address]83 Windows Technical Specialist: Ramiro Santillan MD Urine RBC's 2 TO 5 Normal 0-2 [facility] Comment on above: Performed By: #### A BG #### [address] [place] [address] Windows Technical Specialist: Ramiro Santillan MD Urine WBC's 2 TO 5 Normal 0-5 [facility] Comment on above: Performed By: #### A BG #### [address] [place] [phone] Windows Technical Specialist: Ramiro Santillan MD Amorphous sediment LM Ql (Urine sed) NOT REPORTED Normal NONE [facility] Comment on above: Performed By: #### A BG #### [address] [place] [address] Windows Technical Specialist: Ramiro Santillan MD Bacteria NOT REPORTED Normal [facility] Comment on above: Performed By: #### A BG #### [facility] [address] [place] [address] [place] [phone] Windows Technical Specialist: Ramiro Santillan MD Crystals LM Nom (Urine sed) NOT REPORTED Normal [facility] Comment on above: Performed By: #### A BG #### [facility] [address] [place] [address] [place] [address] Windows Technical Specialist: Ramiro Santillan MD Epithelial, Renal NOT REPORTED Normal 0 [facility] Comment on above: Performed By: #### A BG #### [facility] [address] [place] [address] [place] [address] Windows Technical Specialist: Ramiro Santillan MD Mucus Strands NOT REPORTED Normal NONE [facility] Comment on above: Performed By: #### A BG #### [facility] [address] [place] [address] Windows Technical Specialist: Ramiro Santillan MD Other Observations NOT REPORTED Normal NREQ [facility] Comment on above: Performed By: #### A BG #### [facility] [address] [place] [address] [employer] Technical Specialist: Ramiro Santillan MD Trichomonas NOT REPORTED Normal NONE [facility] Comment on above: Performed By: #### A BG #### [facility] [address] [place] [address] [employer] Technical Specialist: Ramiro Santillan MD Yeast NOT REPORTED Normal NONE [facility] Comment on above: Performed By: #### A BG #### [facility] [facility] [address] [place] [address] Windows Technical Specialist: Ramiro Santillan MD XR HIP RIGHT (2-3 VIEWS)on 0 10-27-2021 XR HIP RIGHT (2-3 VIEWS) EXAMINATION: TWO XRAY VIEWS OF THE RIGHT HIP 10/27/2021 1:06 pm COMPARISON: None. HISTORY: ORDERING SYSTEM PROVIDED HISTORY: pain TECHNOLOGIST PROVIDED HISTORY: pain FINDINGS: No fracture or malalignment identified. The joint spaces are maintained. No discrete soft tissue abnormality identified. Moderate distal colonic stool burden. IMPRESSION: No acute osseous abnormality identified in the right hip. Interpreted by: Faustino Milan MD Signed by: Faustino Milan MD 10/27/21 Final result Normal [facility] Coding Summary.on 09-11-2019 Coding Summary. CODING DATE: 09/11/2019 FINAL [facility] STATUS: Home (Routine DC) PAYOR: Medicaid EAPG DESCRIPTION 0396 LEVEL I MICROBIOLOGY TESTS ADMIT DX: REASON FOR VISIT DX: L02.414 Cutaneous abscess of left upper limb FINAL DX: PRINCIPAL: L02.414 Cutaneous abscess of left upper limb SECONDARY: PYMT PROC EAPG STAT DESCRIPTION DOCTOR NAME DATE NOTE: The code number assigned matches the documented diagnosis and / or procedure in the patient's chart. However, the narrative phrase printed from the coding software may appear abbreviated, or result in slightly different terminology. Coded By: America Davenport Date Saved: 09/11/2019 04:07 pm [facility] Jimmie Woundon 09-07-2019 Wound Culture Microbiology PROCEDURE: Wound Culture [R1] SOURCE: Abscess BODY SITE: Arm L COLLECTED DATE/TIME: 09/05/2019 13:09 EST RECEIVED DATE/TIME: 09/05/2019 20:24 EST START DATE/TIME: 09/05/2019 20:24 EST FREE TEXT SOURCE: MARLY STEVENS, Felix LUKE MD, Felix Magana FINAL REPORTS Final Report [] Verified Date/Time: 09/07/2019 13:05 EST Scant growth of Staphylococcus aureus STAINS Gram Stain Report [] Verified Date/Time: 09/06/2019 00:14 EST Rare epithelial cells 2+ White Blood Cells Rare Gram Positive Cocci SUSCEPTIBILITY RESULTS LEGEND: S=Susceptible, N/R=Not Reported, Blank=Data not available, or drug not advisable or tested, I=Intermediate, ESBL=Extended spectrum beta-lactamase, R=Resistant, TFG=Thymidine-depe ndent strain, UGO=Beta-lactamas e positive, MARINE=mcg/m;(mg/L), S*=Predicted susceptible interp, R*=Predicted resistant interp SA Antibiotic MARINE Dilutn MARINE Interp Amoxicillin/ <=4/2 S Clavulanate Ampicillin >8 UGO Ampicillin/ <=8/4 S Sulbactam Azithromycin <=2 S Cefazolin <=8 S Ceftaroline <=0.5 S Ciprofloxacin <=1 S Clindamycin <=0.25 S Daptomycin <=1 S Erythromycin <=0.5 S Gentamicin <=4 S Levofloxacin <=1 S Linezolid <=2 S Nitrofurantoin <=32 Oxacillin 1 S Penicillin >8 UGO Rifampin <=1 S Tetracycline <=4 S Trimethoprim/ <=0.5/9.5 S Sulfa Vancomycin 1 S Performing Locations R1: This test was performed at: [facility], [address] [place] [address], [id number] , [facility] Comment on above: Performed By: #### [id number] #### [facility] [address] [place] [id number] Vital Signs Date Time Vital Sign Value Performing Clinician Gentryi jocelyn 09-24-2023 18:52-0500 Diastolic blood pressure 85 mm[Hg] Reginaldo Beltran MD Work Phone: [facility] 09-24-2023 18:52-0500 Heart rate 98 /min Reginaldo Beltran MD Work Phone: [facility] 09-24-2023 18:52-0500 Respiratory rate 18 /min Reginaldo Beltran MD Work Phone: [facility] 09-24-2023 18:52-0500 SaO2% (BldA) [Mass fraction] 96 % Reginaldo Beltran MD Work Phone: [facility] 09-24-2023 18:52-0500 Systolic blood pressure 140 mm[Hg] Reginaldo Beltran MD Work Phone: [facility] 09-24-2023 17:07-0500 Body temperature 98.91 [degF] Reginaldo Beltran MD Work Phone: [facility] 09-22-2023 12:07-0500 SaO2% (BldA) [Mass fraction] 98.9 % Reginaldo Beltran MD Work Phone: [facility] 09-22-2023 04:00-0500 Body height 182.9 cm Reginaldo Beltran MD Work Phone: [facility] 09-22-2023 04:00-0500 Body mass index (BMI) [Ratio] 25.58 kg/m2 Reginaldo Bletran MD Work Phone: [facility] 09-22-2023 04:00-0500 Body weight 85.55 kg Reginaldo Beltran MD Work Phone: [facility] 09-21-2023 16:54-0500 SaO2% (BldA) [Mass fraction] 99.9 % Reginaldo Beltran MD Work Phone: [facility] 04-20-2022 00:26-0400 SaO2% (BldA) [Mass fraction] 97 % Lulú Obnd DO Work Phone: [facility] 04-20-2022 00:15-0400 Diastolic blood pressure 88 mm[Hg] Lulú Bond DO Work Phone: [facility] 04-20-2022 00:15-0400 Heart rate 100 /min Lulú Bond DO Work Phone: [facility] 04-20-2022 00:15-0400 Respiratory rate 19 /min Lulú Bond DO Work Phone: [facility] 04-20-2022 00:15-0400 Systolic blood pressure 145 mm[Hg] Lulú Bond DO Work Phone: [facility] 04-19-2022 21:45-0400 Body temperature 96.8 [degF] Lulú Bond DO Work Phone: [facility] 04-04-2022 23:25-0400 Diastolic blood pressure 106 mm[Hg] Cheng Lira MD [employer] 04-04-2022 23:25-0400 Systolic blood pressure 198 mm[Hg] Cheng [facility] MD [facility] 04-04-2022 23:15-0400 SaO2% (BldA) [Mass fraction] 94 % Cheng Lira MD [facility] [employer] [facility] 04-04-2022 21:58-0400 Body height 177.8 cm Cheng [facility] MD [facility] 04-04-2022 21:58-0400 Body mass index (BMI) [Ratio] 27.26 kg/m2 Cheng Lira MD [facility] [employer] 04-04-2022 21:58-0400 Body temperature 97.2 [degF] Cheng [facility] MD [facility] 04-04-2022 21:58-0400 Body weight 86.18 kg Cheng Lira MD [facility] 04-04-2022 21:58-0400 Heart rate 84 /min Cheng Lira MD [facility] [employer] [facility] [employer] 04-04-2022 21:58-0400 Respiratory rate 20 /min Cheng Lira MD [facility] Encounters Encounter Date Encounter Type Care Provider Facility Start: 10-16-2023 ambulatory PAULINA Campos [facility] Start: 09-21-2023 End: 09-24-2023 Evaluation and management of inpatient [facility] Start: 09-21-2023 End: 09-24-2023 Evaluation and management of inpatient Reginaldo Beltran MD Work Phone: [facility] S[facility] Comment on above: Acute respiratory fa ilure Start: 08-12-2023 End: 08-13-2023 ambulatory Jarod Aviles GRAIN PROCESSOR-RUSSIAN LANGUAGE PROFESSOR Facility:[facility] Start: 05-13-2023 End: 05-14-2023 ambulatory Jarod Aviles GRAIN PROCESSOR-RUSSIAN LANGUAGE PROFESSOR Facility:[facility] Start: 02-11-2023 End: 02-12-2023 ambulatory Jarod Aviles GRAIN PROCESSOR-RUSSIAN LANGUAGE PROFESSOR Facility:[facility] Start: 01-11-2023 End: 01-12-2023 ambulatory JACQUELINE PACHECO Facility:[facility] Start: 12-27-2022 End: 12-28-[address] PAULINA WINTERS . Facility:[facility] Start: 12-24-2022 End: 12-25-2022 ambulatory JACQUELINE PACHECO Facility:[facility] Start: 12-03-2022 End: 12-04-[address] PAULINA WINTERS . Facility:[facility] Start: 11-12-2022 End: 11-13-[address] PAULINA WINTERS . Facility:[facility] Start: 10-22-2022 End: 10-23-[address] PAULINA WINTERS . Facility:[facility] Start: 10-18-[address] PAULINA WINTERS . Facili ty:[facility] Start: 10-13-2022 End: 10-15-2022 Evaluation and management of inpatient JACQUELINE PACHECO Facility:[facility] Start: 10-13-2022 End: 10-14-[address] PAULINA WINTERS . Facility:[facility] Start: 10-13-2022 End: 10-13-[address] PAULINA WINTERS . Facility:[facility] Start: 09-24-2022 End: 09-24-[address] PAULINA WINTERS . Facility:[facility] Start: 06-01-2022 End: 06-01-[address] PAULINA WINTERS . Facility:[facility] Start: 04-28-2022 End: 04-29-[address] PAULINA WINTERS . Facility:[facility] Start: 04-19-2022 Emergency department patient visit PAULINA M [facility] Start: 04-19-2022 End: 04-20-2022 Emergency department patient visit Lulú Kiera Bond DO Work Phone: [facility] ED Comment on above: Essential hypertensi on (Primary Dx); Acute headache, unspecified headache type Start: 04-04-2022 End: 04-05-2022 Emergency department patient visit CHENG LIRA [facility] Start: 04-04-2022 End: 04-05-2022 Emergency department patient visit Cheng Lira [facility] Comment on above: Acute nonintractable headache, unspecified headache type (Primary Dx); Elevated blood pressure reading Start: 03-18-2022 End: 03-19-[address] PAULINA WINTERS . Facility:[facility] Start: 10-27-2021 End: 11-02-2021 Evaluation and management of inpatient PAULINA Campos [facility] Procedures Date Procedure Procedure Detail Performing Clinician Start: 09-24-2023 Gluc bld gluc mntr dev cleared fda spec home use Karl Candelario MD Start: 09-24-2023 Gluc bld gluc mntr dev cleared fda spec home use Karl Candelario MD Start: 09-24-2023 Gluc bld gluc mntr dev cleared fda spec home use Karl Candelario MD Start: 09-24-2023 Gluc bld gluc mntr dev cleared fda spec home use Karl Candelario MD Start: 09-24-2023 Complete blood count with white cell differential, automated Cecil Ivan GRAIN PROCESSOR-RUSSIAN LANGUAGE PROFESSOR Work Phone: Start: 09-24-2023 Renal function panel Cecil Ivan GRAIN PROCESSOR-RUSSIAN LANGUAGE PROFESSOR Work Phone: Start: 09-23-2023 Electroencephalogram w/rec awake&drowsy Aracely Mariewood GRAIN PROCESSOR-RUSSIAN LANGUAGE PROFESSOR Work Phone: Start: 09-23-2023 Echo tthrc r-t 2d w/wom-mode compl spec&colr d Cecil Ivan GRAIN PROCESSOR-RUSSIAN LANGUAGE PROFESSOR Work Phone: Start: 09-23-2023 End: 09-23-2023 Renal function panel Cecil Ivan GRAIN PROCESSOR-RUSSIAN LANGUAGE PROFESSOR Work Phone: Start: 09-23-2023 Gluc bld gluc mntr dev cleared fda spec home use Karl Candelario MD Start: 09-22-2023 Gluc bld gluc mntr dev cleared fda spec home use Karl Candelario MD Start: 09-22-2023 Gluc bld gluc mntr dev cleared fda spec home use Karl Candelario MD Start: 09-22-2023 Mri brain brain stem w/o contrast material Aracely Richard GRAIN PROCESSOR-RUSSIAN LANGUAGE PROFESSOR Work Phone: Start: 09-22-2023 End: 09-22-2023 Gluc bld gluc mntr dev cleared fda spec home use Karl Candelario MD Start: 09-22-2023 Iadna multiple organisms amplified probe tq Cecil Ivan GRAIN PROCESSOR-RUSSIAN LANGUAGE PROFESSOR Work Phone: Start: 09-22-2023 End: 09-22-2023 Drug tst prsmv instrmnt chem analyzers pr date Cecil Ivan GRAIN PROCESSOR-RUSSIAN LANGUAGE PROFESSOR Work Phone: Start: 09-22-2023 Gluc bld gluc mntr dev cleared fda spec home use Karl Candelario MD Start: 09-22-2023 Blood gases any combination ph pco2 po2 co2 hco3 Karl Candelario MD Start: 09-22-2023 VENTILATOR SETTINGS Karl Candelario MD Start: 09-22-2023 Gluc bld gluc mntr dev cleared fda spec home use Karl Candelario MD Start: 09-22-2023 Complete blood count with white cell differential, automated Reginaldo Beltran MD Work Phone: Start: 09-22-2023 End: 09-22-2023 Comprehensive metabolic panel Reginaldo benson MD Work Phone: Start: 09-22-2023 Gluc bld gluc mntr dev cleared fda spec home use Karl Candelario MD Start: 09-22-2023 Gluc bld gluc mntr dev cleared fda spec home use Karl Candelario MD Start: 09-21-2023 Gluc bld gluc mntr dev cleared fda spec home use Karl Candelario MD Start: 09-21-2023 Cultyp nuc acid amp prb cult/isolate ea orgwanda Candelario MD Start: 09-21-2023 Culture bacterial quanttative colony count urine Reginaldo Beltran MD Work Phone: Start: 09-21-2023 Urinalysis, reagent strip without microscopy Reginaldo Beltran MD Work Phone: Start: 09-21-2023 Urine drug screening Reginaldo Beltran MD Work Phone: Start: 09-21-2023 Gluc bld gluc mntr dev cleared fda spec home use Reginaldo Beltran MD Work Phone: Start: 09-21-2023 Ct head/brain w/o contrast material Reginaldo eBltran MD Work Phone: Start: 09-21-2023 Radiologic exam chest single view Reginaldo Beltran MD Work Phone: Start: 09-21-2023 Comprehensive metabolic panel Reginaldo benson MD Work Phone: Start: 09-21-2023 Drug test def 1-7 classes Reginaldo Beltran MD Work Phone: Start: 09-21-2023 End: 09-21-2023 Culture bacterial blood aerobic w/id isolates Reginaldo Beltran MD Work Phone: Start: 09-21-2023 Blood gases any combination ph pco2 po2 co2 hco3 Reginaldo Beltran MD Work Phone: Start: 09-21-2023 VENTILATOR SETTINGS Reginaldo Beltran MD Work Phone: Start: 10-14-2022 Excision of Right Lower Leg Muscle, Open Approach DR PAULINA WINTERS . Start: 04-19-2022 BASIC METABOLIC PANEL W/ REFLEX TO MG FOR LOW K Lulú J Bond DO Work Phone: Start: 04-19-2022 Prothrombin time Lulú J Bond DO Work Phone: Start: 04-19-2022 Ct head/brain w/o contrast material Lulú J Bond DO Work Phone: Start: 04-04-2022 Ct head/brain w/o contrast material Cheng Lira MD Start: 04-04-2022 GLUCOSE, WHOLE BLOOD Cheng Lira MD Start: 04-04-2022 Blood count complete auto&auto difrntl wbc Cheng Lira MD Plan of Treatment Date Care Activity Detail Author Start: 06-17-2023 COVID-19 VACCINE ( season) COVID-19 VACCINE ( season) [facility] Start: 06-17-2023 Influenza vaccination INFLUENZA VACC INE (#1) [facility] Start: 10-31-2022 Lipid panel Lipids [facility] Start: 06-17-2022 Influenza vaccination [facility] Start: 01-25-2022 Hemoglobin A1c measurement A1C test (Diabetic or Prediabetic) [facility] Start: 04-21-2021 COVID-19 Vaccine (2 - Booster for Asher series) COVID-19 Vaccine (2 - Booster for Asher series) [facility] Start: 2018 Screening for malign ant neoplasm of colon [facility] Start: 2013 Lipid panel LIPID SCREENING [facility] Start: 1992 DTaP/Tdap/Td vaccine (1 - Tdap) DTaP/Tdap/Td vaccine (1 - Tdap) [facility] Start: 1992 Hepatitis B vaccine (1 of 3 - Risk 3-dose series) Hepatitis B vaccine (1 of 3 - Risk 3-dose series) [facility] Start: 1992 Third diphtheria, tetanus and acellular pertussis (DTaP) vaccination TDAP (ADULT) [facility] Start: 12-20-1991 Diabetic retinal exam Diabetic retin al exam [facility] Start: 12-20-1991 Hepatitis C screening Hepatitis C sc reen [facility] Start: 12-20-1991 Urine screening for protein Diabetic microalbuminuria test [facility] Start: 1988 HIV screening [facility] Start: 1985 Depression Screen Depression Screen [facility] Start: 12-20-1983 Diabetic foot examination Diabetic foot exam [facility] Start: 12-20-1979 Pneumococcal 0-64 ye ars Vaccine (1 - PCV) Pneumococcal 0-64 years Vaccine (1 - PCV) [facility] Start: 12-20-1979 PNEUMOCOCCAL VACCINE SERIES (1 - PCV) PNEUMOCOCCAL VACCINE SERIES (1 - PCV) [facility] Start: 1973 Hepatitis C screening HEPATITIS C JUVENTINO SCREENING [facility] Start: 1973 Tetanus vaccination TETANUS [facility] Bacteria identified in Blood by Culture [facility] End: 09-21-2023 CT Cervical spine WO contrast [facility] Comment on above: One Time for 1 Occur rences starting 09/21/2023 until 09/21/2023 End: 12-07-2023 HERPES SIMPLEX VIRUS (HSV) TYPES 1/2, DNA PCR [facility] Comment on above: One Time for 1 Occur rences starting 09/22/2023 until 09/22/2023 Payers Date Payer Category Payer Unknown 1975 Unknown [id number] 2.16.8 [id number] 1973 Unknown [id number] 2.16.8 [id number] 1973 Unknown [id number] 2.16.8 [id number] 1973 Unknown [id number] 2.16.84 0.1.061993.3.579.2.593 1973 Unknown [id number] 2.16.84 0.1.123502.3.579.2.593 1973 Unknown [id number] 2.16.84 0.1.098308.3.579.2.593 1973 Unknown [id number] 2.16.84 0.1.712656.3.579.2.593 1973 Unknown [id number] 2.16.84 0.1.875496.3.579.2.593 1973 Unknown [id number] 2.16.84 0.1.290649.3.579.2.593 1973 Unknown [id number] 2.16.84 0.1.309805.3.579.2.593 1973 Unknown [id number] 2.16.84 0.1.848075.3.579.2.593 1973 Unknown [id number] 2.16.84 0.1.498065.3.579.2.593 1973 Unknown [id number] 2.16.84 0.1.641429.3.579.2.593 1973 Unknown [id number] 2.16.84 0.1.724118.3.579.2.593 1973 Unknown [id number] 2.16.84 0.1.524006.3.579.2.593 1973 Unknown [id number] 2.16.84 0.1.133668.3.579.2.593 1973 Unknown [id number] 2.16.84 0.1.703426.3.579.2.593 1973 Unknown [id number] 2.16. 840.1.938128.3.579.2.196 1973 Unknown [id number] 2.16. 840.1.884689.3.579.2.196 1973 Unknown [id number] 2.16. 840.1.909660.3.579.2.196 1973 Unknown [id number] 2.16.8 40.1.273219.3.579.2.983 1973 Unknown [id number] 2.16.84 0.1.761904.3.579.2.1286 1959 Self-pay 1961 Unknown [id number] 1. [id number] Social History Date Type Detail Facility Start: 10-27-2021 End: 09-23-2023 Tobacco smoking status [facility] Never smoked tobacco [employer] Phone: Start: 10-27-2021 Tobacco use and exposure User of smokeless tobacco [employer] Phone: History of tobacco use Chews Tobacco [employer] Phone: Start: 04-04-2022 End: 04-19-2022 Alcohol intake Ex-drinker (finding) [facility] [employer] Phone: Start: 1975 Sex Assigned At Not on file B ON [employer] Phone: Start: 03-25-2022 End: 04-19-2022 Exposure to SARS-CoV-2 (event) Not sure SHARON GALLEGO [employer] Work Phone: Start: 09-23-2023 Tobacco use and exposure Smokeless tobacco non-user [facility] Start: 09-23-2023 History of Social function [facility] Start: 09-23-2023 Tobacco use panel [facility] Clinical Notes 04-19-2022 to 09-24-2023 Nursing Notes - Eveline Elias LPN - 09/24/2023 7:27 PM ESTNursing Notes - Eveline Elias LPN - 09/24/2023 7:27 PM ESTNursing Notes - Eveline Elias LPN - 09/24/2023 4:00 PM ESTInstructionsAttachments Note Date & Type Note Facility 09-24-2023 Nurse Note Patient leaving AMA at this time. This nurse educated patient and patient son about the risks of leaving AMA. Dr. Juarez notified on patient's decision. [facility] 09-24-2023 Miscellaneous Notes Patient leaving AMA at this time. This nurse educated patient and patient son about the risks of leaving AMA. Dr. Juarez notified on patient's decision. Assessment unchanged from previous. Call light within reach. Assessment completed at this time. Refer to flowsheets if any changes were made. Call light within reach. Pt denies having any needs. No change in assessment from previous Head to toe reassessment completed by senior copywriter and is unchanged from previous head to toe assessment, please refer to flow sheets. Problem: Dysphagia (Adult) Goal: Functional/Safe Swallow Description: Diet Recommendations and Strategies Regular Thin Liquids Meds whole with thin liquid Plan of Care: Frequency: 1x follow up Duration: 1 week Goals: Detention: José Luis Gorman will be able to consume a Regular with Thin Liquids independently with no evidence of pulmonary or nutritional compromise. Short term: José Luis Gorman will consume recommended diet with adequate clearing and no symptoms of penetration/aspiration. José Luis Gorman will participate in ongoing assessment for diet advancement and/or readiness for instrumental evaluation of swallowing. José Luis Gorman will consume therapeutic trials of thin liquids without signs/symptoms of penetration/aspiration. José Luis Gorman and/or family will demonstrate adequate comprehension of clinical education regarding dysphagia diagnosis, diet, and treatment recommendations. FURNACE CARETAKER will assist in establishing adequate oral hygiene for reduced risk of pulmonary compromise given dysphagia diagnosis. Outcome: Ongoing Patient more alert than previous assessment, this nurse asked patient if he remembers any events that has happened in the last day, he said he does remember a tube being down his thoat, but does not remember why. Educated patient on what happened. Patient able to tell this nurse it is 2022, still states he is at [facility], when reoriented that he is in [place] he states shoot I knew that . Patient pleasant but still restless in the bed, continues to roll in circles, and get up on hands and knees and rock back and forth. Patient had episode of bowel incontinence. Patient cleaned, and placed in a brief, linens changed as well. Patient continues to pull lines and lead at this time. Patient pulled IV out. This nurse placed new iv in left hand at this time. Patient continues to roll around in bed, and get on his hands and knees in the bed. This nurse redirected patient at this time. Patient calm, but remains confused at this time. Stated he is at [facility], the year is 2002, and Duran is the president. Redirected patient at this time. Patient responses to staff when he wants too. Patient incontinent of stool for second time. Patient cleaned and repositioned wires and IV tubing untangled. Tele leads replaced. IV flushed with blood return in left should IV, patient shook head 'no' when asked if that was painful. Iv fluids started in that are. Patient's face is flushed and skin feels hot to touch. 99.2 was temp on temporal thermometer. Jennifer Lopez RN Patient had rolled back on his side. IV's hooked back up. Importance of IV's explained to patient, patient nodded head in yes' motion. Iv's running for less then 5 minutes when patient rolled back up to all fours, which does not allow IV to run. Other IV site is left should is red and is difficult to flush. Due to patient's position, unable to attempt new IV sight placement at this time. Jennifer Lopez RN Patient is currently on all fours in bed, rocking back an fourth. Patient, will not roll over on to back for staff. Patient does not answer staff when they ask him to roll over or if he is having pain anywhere. Unable to get IV in Right AC to run with how patient is holding his arms. Will attempt to run IV's whenever patient returns to a proper position in the bed. Jennifer Lopez RN Delia discontinued per . Patient going to MRI. Neuro in to see. Jennifer Lopez RN Patient still drowsy, wakes for a brief moment, will open eyes and look at you but will shake his head no to any question asked him. Son's updated on plan of care for patient. Jennifer Lopez RN Patient was extubated at 1340, patient is drowsy but vitals are stable. Neurology consult made. RSV swab done and sent to lab. Son's at bedside. Jennifer Lopez RN Patient extubated and placed on 2LPM nasal cannula. ABG results given to Dr. Candelairo. Dr. Candelario called regrding abg results. No answer. Message left. PSV trial started with PS and PEEP 5, FIO2 30%. VT 432 mL, minute volume 7.33 L. HR 78, RR12, SpO2 99%. At 1126, HR 59, SpO2 100%, RR 18, Vt 446 mL, minute volume 8.15L. At 1204, HR 82, SpO2 100%, RR 15, Vt 709 mL, minute volume 12.4L. ABG was drawn. Patient remains in PS mode. Associated Problem(s): Polysubstance use disorder Positive for benzos and MDMA Complete cessation will be advised Associated Problem(s): Acute respiratory failure Patient without hypoxia - Intubated due to combativeness Attempt wean/extubate today CXR non-acute 02 per protocol, IS Routine aerosols Associated Problem(s): Acute delirium Secondary to drug effects CT head non-acute Supportive care Morning assessment completed, Patient at appropriate level of sedation. Resting comfortable in bed, eyes closed. Vitals stable. Patient's mother called in and update give. Morning Labs drawn. Jennifer Lopez RN Problem: Patient Care Overview Goal: Plan of Care Review Outcome: Progressing Toward Goal Goal: Individualization & Mutuality Outcome: Progressing Toward Goal Goal: Discharge Needs Assessment Outcome: Progressing Toward Goal Goal: Interdisciplinary Rounds/Family Conf Outcome: Progressing Toward Goal Problem: Ventilation, Mechanical Invasive (Adult) Goal: Signs and Symptoms of Listed Potential Problems Will be Absent, Minimized or Managed (Ventilation, Mechanical Invasive) Description: Signs and symptoms of listed potential problems will be absent, minimized or managed by discharge/transition of care (reference Ventilation, Mechanical Invasive (Adult) CPG). Outcome: Progressing Toward Goal Problem: Skin Integrity Impairment, Risk/Actual (Adult) Goal: Identify Related Risk Factors and Signs and Symptoms Description: Related risk factors and signs and symptoms are identified upon initiation of Human Response Clinical Practice Guideline (CPG) Outcome: Progressing Toward Goal Goal: Skin Integrity/Wound Healing Description: Patient will demonstrate the desired outcomes by discharge/transition of care. Outcome: Progressing Toward Goal Problem: Fall/Trauma/Injury Risk (Adult) Goal: Fall/Trauma/Injury Risk: Absence of Trauma/Injury/Falls Description: Patient will demonstrate the desired outcomes. Outcome: Progressing Toward Goal Goal: Knowledge of risk factors/behavior modification Description: Knowledge of risk factors/behavior modification for fall/injury prevention Outcome: Progressing Toward Goal Problem: Thought Process Alteration (Adult) Goal: Identify Related Risk Factors and Signs and Symptoms Description: Related risk factors and signs and symptoms are identified upon initiation of Human Response Clinical Practice Guideline (CPG) Outcome: Progressing Toward Goal Goal: Improved Thought Process Description: Patient will demonstrate the desired outcomes by discharge/transition of care. Outcome: Progressing Toward Goal Precedex drip running, working to turn propofol down to wean off and precedex up to help keep pt calm. Pt finally relaxing and less agitated, will continue to monitor. Staff x4 in room to help protect pt as he is restless and agitated, sit up in bed, Dr. Candelario notified to verify earlier order to change to precedex and discontinue propofol, states to proceed with this as stated earlier. Pt awakens suddenly and quickly becomes agitated, due to situation propofol increased to try to calm pt. Sedation titrated down due to low BP, pt then becomes very agitated and combative, BP increases, propofol titrated back up and pt calms, Dr. Candelario notified of this, orders received. Attempt to place OG without success, and then attempt NG also without success, pt becomes agitated during this, propofol adjusted. On admission to [facility] ICU, from ED a dual RN initial assessment of skin condition was performed by Amna Irvin RN and Joseline Paez RN. Skin Assessment: Skin within defined limits:Yes Pt has some scabs and abrasions to bilateral shins. Derek Score: 12 LDA Added:No Amna Irvin RN Loop here as pt arrives to ICU, Ventilator initiated at this time. Refer to flowsheets for settings and readings. Pt intubated with size 8.0 ETT 26@ teeth by Dr Beltran. Positive color change on EtCO2 with equal breath sounds noted. Vocal cords visualized via GlideScope. SpO2 100% while being bagged with 100% FiO2. documented in this encounter [facility] 09-24-2023 Nurse Note Assessment unchanged from previous. Call light within reach. [facility] 09-24-2023 Nurse Note Assessment completed at this time. Refer to flowsheets if any changes were made. Call light within reach. Pt denies having any needs. [facility] 09-24-2023 Hospital course Narrative Discharge Summary Name: José Luis Gorman Age: 47 y.o. Birthday: 1975 Admit Date: 09/21/2023 4:24 PM Discharge Date: 09/24/2023 Brief Summary of Hospital Course: The patient is a 47-year-old male who presented to the emergency department for evaluation of acute delirium. Patient was intubated in the ED due to AMS and airway protection. Routine evaluation was completed. A CT scan of the head was nonacute. Laboratory studies were unremarkable. A drug screen was consistent with benzodiazepines as well as MDMA. The patient was found to be significantly hypertensive was started on a Cardene drip. He was admitted to the ICU for further evaluation and management. He was extubated on 09/22/2023. Details of hospital stay as noted below: Acute delirium Suspect secondary to drug effects/metabolic derangements CT head non-acute Seen by Neurology MRI Brain (-) EEG (-) Now resolved UDS: Positive for MDMA - ground services instructor consulted: Patient denied using MDMA, states he does not use any drugs. SW asked patient if he has used drugs in the past, he states 20+ years ago. Patient continues to deny drug use and states he was upset to hear that he was positive for that when he doesn't even know what it is. Acute respiratory failure Patient without hypoxia - Intubated due to combativeness; Extubated 09/22/2023 Stable on room air CXR non-acute 02 per protocol, IS Routine aerosols Renal insufficiency Baseline appears to be - 1.3 - 1.4 Stable Follow-up with PCP Diabetes Type 2 Accuchecks with SSI/ADA diet. Resume home medications as appropriate and follow-up with PCP after discharge for continued evaluation and management. Code Status: Full Code Consults: Neurology Discharge Diagnosis: Principal Problem: Acute respiratory failure Active Problems: Acute delirium Polysubstance use disorder Renal insufficiency Type 2 Diabetes (A1C > 6.49%) Discharge Vital Signs: Blood pressure (!) 158/95, pulse 85, temperature 98 F (36.7 C), temperature source Temporal, resp. rate 22, height 1.829 m (6'), weight 85.5 kg (188 lb 9.6 oz), SpO2 97 %. PHYSICAL EXAM: General: Patient resting comfortably. Awake. No acute distress. HEENT: Normalcephalic, atraumatic. Pupils equal, round, reactive, to light and accomodation B/L. Ears normal, no erythema or drainage. Bilateral nares patent without obvious drainage. Oral mucosa moist, pink, intact without ulcers or lesions. Neck: No JVD, no thyromegaly, no anterior or posterior cervical lymphadenopathy. Cardiovascular: Regular rate and rhythm, without murmurs, rubs, or gallops. Respiratory: Bilateral Upper and Lower Lobes anterior and posteriorly without wheezes, rales, or rhonchi Gastrointestinal: Soft, rounded, non-tender. Bowel sounds present x4 quadrants. No rebound. No organomegaly or masses noted upon deep palpation. Musculoskeletal: No edema, clubbing or cyanosis, pulses palpable 2+ distally. Muscle strength and tone symmetrical. Skin: Warm, Dry, Intact. No obvious rashes or lesions noted. Neuro: Cranial nerves 2-12 grossly intact upon seated examination. No focal defiects noted. Physiatric: Patient awake, alert, orientedx3. Mood and affect appropriate. Discharge Labs: Lab Results Component Value Date WBC 15.2 (H) 09/24/2023 HGB 11.4 (L) 09/24/2023 HCT 34.1 (L) 09/24/2023 PLATELET 161 09/24/2023 MCV 86.7 09/24/2023 Lab Results Component Value Date SODIUM 138 09/24/2023 POTASSIUM 3.8 09/24/2023 CHLORIDE 111 (H) 09/24/2023 CO2 24 09/24/2023 BUN 17 09/24/2023 CREATSERUM 1.10 09/24/2023 GLUCOSE 168 (H) 09/24/2023 Lab Results Component Value Date ALT 25 09/22/2023 AST 35 09/22/2023 ALKPHOS 76 09/22/2023 BILITOTAL 0.4 09/22/2023 Discharge Medications: Medication List for when you go home START taking these medications Lisinopril 10 MG TABS Take 1 tablet by mouth every 12 hours. Commonly known as: PRINIVIL CONTINUE taking these medications acetaminophen 500 MG TABS Take 1 tablet by mouth every 6 hours as needed for Mild Pain. Commonly known as: TYLENOL Lantus 100 UNIT/ML vial Inject 1 Units under the skin at bedtime. Generic drug: Insulin glargine NovoLOG FlexPen 100 UNIT/ML SOPN injection Inject 1 Units under the skin before meals & at bedtime. Generic drug: insulin aspart simvastatin 20 MG TABS Take 1 tablet by mouth every evening at 6 PM. Commonly known as: ZOCOR Tizanidine 2 MG TABS Take 2 tablets by mouth 3 times daily. Commonly known as: ZANAFLEX VIAGRA PO Take 1 % by mouth As directed as needed for Other. Discharge Activity: Resume pre-hospital activities as tolerated Discharge Diet: Resume pre-hospital diet as tolerated Discharge Follow-up: Paulina Winters MD [address] [facility] [id number] Call Post-Hospital Follow Up Discharge Disposition: Patient will be discharged in stable condition. Discharge Time: Including assessment, planning, and medication reconciliation was 8 minutes of RUSSIAN LANGUAGE PROFESSOR time. Cecil Ivan CNP completing Discharge Summary for Dr. Candelario Please note Portions of this note utilized StyleCaster dictation software, please excuse any typographical or grammatical errors Associated attestation - Karl Candelario MD - 09/24/2023 7:51 PM EST I have personally seen and examined José Luis Gorman. I have personally reviewed all available clinical data related to this encounter including, but not limited to, radiolgraphs and reports, laboratory data, and procedure reports. I have been involved in formulation of the assessment and plan. 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 Was found very confused and agitated so was given versed by EMT and had to be intubated to protect airway. Today morning did good with extubation protocol but when I saw him he was still very obtunded. Overnight had periods of severe agitation needing haldol, precedex and diprivan caused hypotension Drug screen + for Brian and MDMA ROS: Ten systems reviewed, unless limited by patient' or care providers' inability or unavailability. Reported above or following. Assessment and additional plans: Empiric treatment with keppra and seroquel for sun downing worked. Signed out AMA. He was not ready for discharge bec of uncontrolled htn 185/111 at discharge. He is Ox3 and able to decide for himself Acute delirium and agitation, etiology r/o seizure and post ictal state. Poly drug use with Side effects CKD III Empiric keppra, EEG DM II hemtoproteinuria Time: my 20 minutes including overnight vent management and today. Bedside and on the floor, including communicating with EDMD and MARIAN time. Not including procedure time or overlap with other Provider's time. Contact me if you need any clarification. Karl Candelario MD Please note: Portions of this note utilized StyleCaster dictation software, please excuse any typographical or grammatical errors. Which inadvertently, might change the meaning and understanding. documented in this encounter [facility] 09-24-2023 Nurse Note No change in assessment from previous [facility] 09-23-2023 History of Presen t illness Narrative 09/23/23 1300 Referral Information Arrived From home or self-care Information Source Information Source patient ;review of medical record Information Source Name José Luis Gorman Contact Information Cvt Rn/SW Added to Care Team Yes This Associate Media Planner is Primary Cvt Rn/SW Yes Social Work Contact Name Rachael Fox Multiple Needle Stitcher's Living Environment Lives With alone Living Arrangements house Primary Care Provided By self Support System Immediate family Able to Return to Prior Arrangements yes Functional Status Patient's Functional Status Prior To This Admission? Independent Employment/Financial Employed? Yes Employment Details [employer] Employment/Financial Concerns no Financial Concerns none Insurance Medical Insurance Verified Yes Initial Discharge Planning Home Care Services (TIPPLE OILER) No DME (TIPPLE OILER) Straight cane;Wheelchair;Walker Patient Goal for Discharge Return home with assistance from family and friends Anticipated discharge disposition Home Current Discharge Risk lives alone Transportation Available car Assessment/Concerns to be Addressed Concerns To Be Addressed denies needs/concerns at this time;no discharge needs identified Chart reviewed. Patient extubated yesterday afternoon. Positive toxicology screen for benzo (medication) and MDMA. SW met with patient at bedside. Patient reports living alone in a 2 story house, he states his daughter is in the process of moving in with him. 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 Denied issues affording food or medications, confirmed insurance is [employer]. Also denied having home O2 and home services. He reports having walkers, cane, and a wheelchair at home but does not use any equipment. He denied feeling weak. PCP is Paulina Winters. Patient states he does not remember being intubated. SW discussed positive toxicology screen with patient (MDMA). Patient denied using MDMA, states he does not use any drugs. SW asked patient if he has used drugs in the past, he states 20+ years ago. Patient continues to deny drug use and states he was upset to hear that he was positive for that when he doesn't even know what it is. Patient reports no questions or concerns at this time, plans to return home with no services. SW can be contacted if additional needs arise. 09/23/23 1505 Time In/Out Time In 1505 Time Out 1517 Total Visit Time 12 minutes Total Treatment Time (skilled, billable minutes) 12 minutes Initial Evaluation/Screen Completed? yes OT Evaluation and Treatment Time OT Evaluation (Low) Time Entry 12 General Information Patient Safety Communication Prior to Visit Nursing OT Existing Precautions/Restrictions fall Home Setting Residence House (2-story with basement; pt sleeps on first floor and rarely accesses basement) Lives With alone (reports 27 year old daughter is getting ready to move back in) First floor setup bedroom;walk-in shower;grab bars Number of stairs to enter home 3 Number of stairs in home (flight to second story and basement which pt does not require access) Stair Railings at Home entry - with rail Mobility Equipment Available 2 wheeled walker;straight cane;none used (pt reports having a walker and cane 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 Independent with self-care and functional mobility without AD. IADL History IADLs independent PRIOR LEVEL AM-PAC Activity Inpatient Short Form Putting on/Taking Off Lower Body Clothing 4 - No Assistance Bathing 4 - No Assistance Toileting 4 - No Assistance Putting on/Taking Off Upper Body Clothing 4 - No Assistance Grooming 4 - No Assistance Eating 4 - No Assistance PRIOR LEVEL AM-PAC Activity Raw Score 24 PRIOR LEVEL AM-PAC Activity Functional Limitation/Modifier 0.00% Prior Functional Impairment in Daily Activity General Pain Documentation (Adult, OB, Peds) Presence of Pain denies pain/discomfort Presence of Pain Score (Auto-calculated) 0 Select Pain Scale DVPRS (Defense and Veterans Pain Rating Scale) (Adult-Cognitively Intact) DVPRS (Defense and Veterans Pain Rating Scale) DVPRS: Rest 0- no pain DVPRS: Activity 0- no pain Cognition Overall Cognitive Status WFL Arousal/Alertness Appropriate responses to stimuli Orientation Level Oriented to person;Oriented to place;Oriented to time (reports he passed out when asked why he came into the hospital, doesn't recall happening reports he was just told that's what happened) Following Commands Follows all commands and directions without difficulty Vision Screen Currently wearing corrective lenses No (reports wearing glasses most of the time at home) Speech Speech no gross deficits noted Successful Methods (Communication Strategies) verbal speech Hearing Hearing no gross deficits noted Sensation Overall Sensation Intact RUE Assessment RUE Assessment WFL Right UE Assessment Details Grossly 5/5 LUE Assessment LUE Assessment WFL Left UE Assessment Details Grossly 5/5 Hand Manager Costing Strength Hand Manager Costing Strength Interpretation Left above expected range (strong);Right above expected range (strong) Sit to Stand Transfer [place] Level: Sit->Stand supervision Assistive Device: Sit->Stand gait belt Stand to Sit Transfer [place] Level: Stand->Sit supervision Assistive Device: Stand->Sit gait belt Sitting Balance Static Sitting-Level of Assistance Independent Dynamic Sitting-Level of Assistance Independent Standing Balance Static Standing-Level of Assistance Supervision Dynamic Standing-Level of Assistance Supervision LE Dressing LE Dressing Assistance Independent LE Dressing Location edge of bed LE Dressing Intervention/Details Pt pulled up each leg to bed to doff/don bilateral diesel stationary engineer socks with no hands-on assist required. Patient Education/Instruction Patient Instruction/Education this session Education on OT. Assessment Narrative Assessment (Patient completed ADLs and functional mobility with no hands-on assist required. Pt reports feeling as though he is back to his baseline and declines need for any further OT intervention. OT eval only as pt is completing self-care at his functional baseline.) OT Co-Eval/Treatment Information Co-evaluation/co-treatment performed? No simultaneous skilled care performed Clinical Impression Continue care plan no Therapy Frequency no therapy warranted Discharge Destination Recommendation Home Evaluation Complexity Occupational Profile and Client History HPI: Presented to ED after being found unresponsive. Admitted with acute respiratory failure. Pt was intubated and extubated. No past medical history on file. No past surgical history on file. Low - brief history Assessment of Occupational Performance Low (1-3 performance deficits) Clinical Decision/Performance Deficits Low (problem-focused assessments w/limited treatment options) Plan Plan for next session OT eval only Pt sitting up on EOB upon arrival. Agreeable to OT eval. In addition to above, pt ambulated a few steps forward and backward at bedside with gait belt and supervision. Pt returned to EOB at end of session and was left with call button and tray table within reach. All needs met upon exit. ALPESH Ramos, OTR/L 09/23/2023 09/23/23 1425 Time In/Out Time In 1425 Time Out 1505 Total Visit Time 40 minutes Total Treatment Time (skilled, billable minutes) 40 minutes PT Therapy Completed Yes Initial Evaluation/Screen Completed? yes PT Evaluation and Treatment Time PT Evaluation (Moderate) Time Entry 20 Therapeutic Activity Time Entry 10 Gait Training Time Entry 10 Subjective Subjective information Patient agreeable to therapy. RN encourages patient participation in an effort to determine patient needs for return to home. Patient without complaints. 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 Previous Level of Function Prior level ADL Overview Independent with all ADLs Bed Mobility/Transfers independent Ambulation Skills independent Assistive Device none used Level of Ambulation community Prior Level of Function Details Drove, independent. PRIOR LEVEL [facility] Basic Mobility Inpatient Short Form Turning over in bed 4 - No Assistance Sitting/standing from chair 4 - No Assistance Moving from lying on back to sitting 4 - No Assistance Moving to and from bed to chair 4 - No Assistance Walk in hospital room 4 - No Assistance Climbing 3-5 steps with a railing 4 - No Assistance [facility]EL [facility] Raw Score 24 PRIOR LEVEL [facility] Mob[facility] Functional Limitation/Modifier 0.00% Prior Functional Impairment in Basic Mobility General Pain Documentation (Adult, OB, Peds) Presence of Pain denies pain/discomfort Presence of Pain Score (Auto-calculated) 0 Cognition Overall Cognitive Status WFL (responses not always appropriate, sometimes delayed) Arousal/Alertness Generalized responses Orientation Level Oriented to person (Even after RN orients person to situation and why he is in ICU, patient forgot after 4 minutes and needed re-orientation again.) Following Commands Follows one step commands with increased time Safety Judgment Decreased awareness of need for safety;Decreased awareness of need for assistance Awareness of Errors Assistance required to identify errors made;Assistance required to correct errors made;Decreased awareness of errors Deficits Decreased awareness of deficits Attention Span Difficulty attending to directions;Difficulty dividing attention Memory Decreased short term memory;Decreased recall of recent events Problem Solving Assistance required to implement solutions;Assistance required to generate solutions;Assistance required to identify errors made Cognition Comments Patient is vague at times, displays poor short term memory and immediate recall. Vision Screen Currently wearing corrective lenses (notes he did not have his glasses with him) RLE Assessment Right LE Assessment Details Generally 4/4+ LLE Assessment Left LE Assessment Details Generally 4/4+ Sensation Overall Sensation (Notes bilat neuropathy from knees down, states it is n/t neuropathy, and he has some sensation in his lower legs. Notes neuropathy as reason for his multiple abrasions on bilat lower legs.) Skin Integrity Skin Integrity Description Abrasion (multiple on bilat lower legs) Sitting Balance Static Sitting-Level of Assistance Independent Standing Balance Static Standing-Level of Assistance Supervision Dynamic Standing-Level of Assistance Moderate assistance (Brief fell to floor while standing, patient wished to remove it by bending over, pullig R LE up to pull brief off, required mod assist of PT and his own upper extremity assist to maintain upright.) Standing-Balance Support Gait belt;Left hand held assist (R UE lean onto bed rail) Rolling/Turning Mobility [place] Level: Rolling/Turning independent Scooting Bridging Mobility [place] Level: Scooting/Bridging independent Supine to Sit Mobility [place] Level: Supine->Sit independent Skilled Intervention/Details: Supine->Sit Patient did require to sit EOB for short period prior to transition to stand. BP taken and no decrease from baseline. Sit to Stand Transfer [place] Level: Sit->Stand minimum assist (75% patient effort) Skilled Intervention/Details: Sit->Stand Assist needed d/t inability to maintain in one plane of movement, compensated for balance and/or functional weakness with a deviation to straight sit to stand. Bed-Chair Transfer [place] Level: Bed<->Chair (pt declined up to chair) Gait Assessment [place] Level: Gait moderate assist (50% patient effort) Physical Assist: Gait (min assist during ambulation but for final 75' required mod assist.) Assistive Device: Gait gait belt Ambulation Distance (Feet) 250 Gait Deviations Identified (deviation to gait path, scissoring in final 75', increased medial-lateral sway that worsened with increased distance. Patient asked I feel unsteady? within final 50' of ambulation. When entering the room, walking to the bed, patient w/ scissored gait) CURRENT [facility] Basic Mobility Inpatient Short Form Turning over in bed 4 - No Assistance Sitting/standing from chair 3 - A Little Assistance Moving from lying on back to sitting 4 - No Assistance Moving to and from bed to chair 3 - A Little Assistance Walk in hospital room 2 - A Lot of Assistance Climbing 3-5 steps with a railing 1 - Total Assistance CURRENT [facility] Mobility Raw Score 17 CURRENT [facility] Mobility Functional Limitation/Modifier 50.57% Currently Impaired in Basic Mobility - CK Assessment Patient admitted for Patient aditted after being found unresponsive. Intubated 09/21 and extubated 09/22, with a metabolic encephalopathy. PMH includes: No past medical history on file. Reason for referral PT eval and treat for mobiltiy Assessment Patient presents with fluctuations in his abiltiy, consistent with encephalopathy. Decision-making and word-finding are also affected, which concerns therapist for ability to effectively communicate needs in an emergency if home alone. He demonstrates balance deficits that place him at high risk for falls, and a functional weakness when ambulating. He has an overall decreased activity tolerance that is not sufficient at this time to return safely home alone. PT Co-Eval/Treatment Information Co-evaluation/co-treatment performed? No simultaneous skilled care performed Clinical Impression Criteria for Skilled Therapeutic Interventions Met (PT Eval) yes, treatment indicated Impairments Found (PT Eval) Strength;Balance;Gait/Locomotion Rehab Potential (PT Eval) good Therapy Frequency (daily to BID throughout patient stay) Planned Therapy Interventions balance training;functional activity tolerance;gait training;neuromuscular re-education;strengthening;transf er training Eval Complexity Assessment History Components Moderate (1-2 personal factors and/or comorbidities) Examination of Body System(s) Components Moderate (Addressing a total of 3 or more elements) Clinical Presentation Evolving - changing/inconsistent clinical characteristics (Moderate) Clinical Decision Making (complexity) Moderate Additional Session Details PPE used during patient interaction gloves (when patient assisted to urinate, and when patient c/o nausea w/ dry heaves.) Patient location/status at end of session edge of bed (bed alarm set) Patient alarms at end of session bed alarm Plan Activity Recommendations for outside of rehab session up to chair Patient states his ability to walk has waxed and waned at home d/t generalized weakness. Denies falls. States he had multiple hospitalizations in [facility] previously for infection. Evaluation as noted, with worsening balance with increasing distance. On returning to EOB, patient with dry heaving x5 min. Assisted to stand to void, min assist for static standing balance to use the urinal at EOB. Orthostatic blood pressures unchanged with position; vitals stable and consistent throughout session. Patient with fluctuating motor/balance deficiencies, as well as cognitive and communication difficulties throughout session, consistent w/ encephalopathy. Recommend continued PT to address limitations and continue to assess for long-term problems versus acute due to encephalopathy. PT goals: Patient will perform transfers with independence to minimize risk of falling and maximize independence for return to home Patient will ambulate at least 500' with no device and SBA +1 for household/short community distance and to promote independence for return to home Patient will ascend and descend 4 stairs with 1 rail and assist of 1 for entry/exit into the home/community. Brittney Ma PT DAILY PROGRESS NOTE Admit Date: 09/21/2023 Date of Evaluation: 1:25 AM [facility] LOS: 2 days SUBJECTIVE: Patient seen and examined. Chart, medications, labs all reviewed. Patient denies all reports of Headache, Blurred Vision, Lightheadedness, Dizziness, Fever, Chills, Nausea, Vomiting, Diarrhea, or Pain. No overnight events Doing well off the vent following extubation Stable on room air Delirium resolved - A/O now Vital Signs: Blood pressure 155/72, pulse 91, temperature 97.8 F (36.6 C), temperature source Oral, resp. rate 13, height 1.829 m (6'), weight 85.5 kg (188 lb 9.6 oz), SpO2 97 %. O2 Sat (%): 97 % (09/23 111) O2 Device: room air (09/23 111) Intake and Output: Intake/Output Summary (Last 24 hours) at 09/23/2023 1125 Last data filed at 09/23/2023 0626 Gross per 24 hour Intake 0 ml Output 850 ml Net -850 ml Daily Weight: Wt Readings from Last 3 Encounters: 09/22/23 85.5 kg (188 lb 9.6 oz) PHYSICAL EXAM: General: Patient resting comfortably. Awake. No acute distress. Cardiovascular: Regular rate and rhythm, without murmurs, rubs, or gallops. Respiratory: Bilateral Upper and Lower Lobes without wheezes, rales, or rhonchi Gastrointestinal: Soft, rounded, non-tender. Bowel sounds present x4 quadrants. No rebound. No organomegaly or masses noted upon deep palpation. Musculoskeletal: No edema, clubbing or cyanosis, pulses palpable 2+ distally. Skin: Warm, Dry, Intact. Current Facility-Administered Medications Medication Dose Route Frequency Provider Last Rate Last Admin Acetaminophen (TYLENOL) tablet 650 mg 650 mg Oral Q4H PRN RODRIGUEZ Shepherd Atorvastatin (LIPITOR) tablet 10 mg 10 mg Oral QHS RODRIGUEZ Shepherd Insulin regular (HUMULIN R;NOVOLIN R) injection Subcutaneous Q6H RODRIGUEZ Shepherd And glucose chewable tablet CHEW 16-32 g 4-8 tablet Oral See admin instructions RODRIGUEZ Shepherd And Dextrose 10% IV solution 250 mL 250 mL Intravenous See admin instructions RODRIGUEZ Shepherd Dextrose 5% and sodium chloride 0.9% IV solution Intravenous Continuous RODRIGUEZ Shepherd 125 mL/hr at 09/23/23 0847 New Bag at 09/23/23 0847 Enoxaparin Sodium (LOVENOX) injection 40 mg 40 mg Subcutaneous Daily LOIDA ShepherdRUSSIAN LANGUAGE PROFESSOR 40 mg at 09/23/23 0847 hydrALAZINE (APRESOLINE) injection 20 mg 20 mg Intravenous Q4H PRN RODRIGUEZ Shepherd Ipratropium-albuterol (DUONEB) 0.5-2.5 (3) MG/3ML nebulizer solution 3 mL 3 mL Nebulization Q4H PRN RODRIGUEZ Shepherd Labetalol (NORMODYNE) injection 20 mg 20 mg Intravenous Q6H PRN RODRIGUEZ Shepherd Lisinopril (PRINIVIL) tablet 10 mg 10 mg Oral Q12H RODRIGUEZ Shepherd Ondansetron 4mg/2ml (ZOFRAN) injection 4 mg 4 mg Intravenous Q4H PRN RODRIGUEZ Shepherd Pantoprazole (PROTONIX) tablet DR 40 mg 40 mg Oral Daily RODRIGUEZ Shepherd Diagnostics: Lab Results Component Value Date WBC 14.1 (H) 09/23/2023 HGB 11.6 (L) 09/23/2023 HCT 34.7 (L) 09/23/2023 PLATELET 167 09/23/2023 MCV 86.5 09/23/2023 No results found for: INR , PT Lab Results Component Value Date CREATSERUM 1.10 09/23/2023 BUN 22 (H) 09/23/2023 SODIUM 140 09/23/2023 POTASSIUM 3.6 09/23/2023 CHLORIDE 112 (H) 09/23/2023 CO2 23 09/23/2023 Lab Results Component Value Date RESULTCULT NO GROWTH 2 DAYS 09/21/2023 IMPRESSION /PLAN: Principal Problem: Acute respiratory failure Active Problems: Acute delirium Polysubstance use disorder Renal insufficiency Type 2 Diabetes (A1C > 6.49%) Acute delirium Secondary to drug effects/metabolic derangements CT head non-acute Seen by Neurology MRI Brain (-) Now resolved Supportive care Acute respiratory failure Patient without hypoxia - Intubated due to combativeness; Extubated 09/22/2023 Stable on room air CXR non-acute 02 per protocol, IS Routine aerosols Polysubstance use disorder Positive for Benzos (given by EMS) and MDMA Complete cessation advised Denies illicit substance use Renal insufficiency Baseline appears to be - 1.3 - 1.4 Stable Trend labs Monitor intake and outputs Diabetes Type 2 Accuchecks with SSI/ADA diet. Resume home medications as appropriate and follow-up with PCP after discharge for continued evaluation and management. Code Status: Full Code GI/DVT Prophylaxis: Protonix/Lovenox 6 minutes spent of RUSSIAN LANGUAGE PROFESSOR time including assessment, planning, and discussion with nursing staff and patient Associated attestation - Karl Candelario MD - 09/23/2023 6:37 PM EST I have personally seen and examined José Luis Gorman. I have personally reviewed all available clinical data related to this encounter including, but not limited to, radiolgraphs and reports, laboratory data, and procedure reports. I have been involved in formulation of the assessment and plan. DOS: 09/23/2023 HPI: AAOx3, amnesia to events since admission very active gonzalez per sons has intermittent episodes of confusion. Was found very confused and agitated so was given versed by EMT and had to be intubated to protect airway. Today morning did good with extubation protocol but when I saw him he was still very obtunded. Overnight had periods of severe agitation needing haldol, precedex and diprivan caused hypotension Drug screen + for Brian and MDMA ROS: Ten systems reviewed, unless limited by patient' or care providers' inability or unavailability. Reported above or following. Assessment and additional plans: Empiric treatment with keppra and seroquel for sun downing Acute delirium and agitation, etiology r/o seizure and post ictal state. Poly drug use with Side effects CKD III Empiric keppra, EEG DM II hemtoproteinuria Time: my 20 minutes including overnight vent management and today. Bedside and on the floor, including communicating with EDMD and MARIAN time. Not including procedure time or overlap with other Provider's time. Contact me if you need any clarification. Karl Candelario MD Please note: Portions of this note utilized StyleCaster dictation software, please excuse any typographical or grammatical errors. Which inadvertently, might change the meaning and understanding. Neurology Inpatient Progress Note (Video) [place] 09/23/2023 Patient: José Luis Gorman Date of : 1975 (47 y.o.) Referring Provider: Refer to consult order in electronic medical record PCP: Paulina Winters ASSESSMENT: Principal Diagnosis: Acute respiratory failure Active Pertinent Problems and Diagnoses Present on Admission: Acute respiratory failure Acute delirium Polysubstance use disorder Renal insufficiency Type 2 Diabetes (A1C > 6.49%) Additional Active Pertinent Problems and Diagnoses No problems updated. 47 y.o. male presented to [facility] on 09/21/2023 with AMS PLAN: Altered mentation- Cannot rule out seizure. Cannot rule out hypertensive encephalopathy with hyperammonemia, dehydration, uncontrolled DM, and various metabolic disturbances contributing. MRI did not reveal any acute intracranial abnormalities EEG Medical team to manage metabolic disturbances Will continue to monitor and make further recommendations based on clinical course Follow up: office to schedule prior to discharge Assessment was discussed and plan formulated with collaborating physician, Dr. Yu. This provider spent ample amount of time reviewing patient's chart. This includes: provider notes, therapy, labs, imaging, procedures, medications, etc.. Current Scheduled Medications Atorvastatin 10 mg Oral QHS Insulin regular Subcutaneous Q6H And glucose 4-8 tablet Oral See admin instructions And Dextrose 10% 250 mL Intravenous See admin instructions enoxaparin 40 mg Subcutaneous Daily Pantoprazole 40 mg Oral Daily DIAGNOSTIC TESTING SUMMARY: Resulted Testing: (MRI/CT/XR, EEG, EMG, CSF, Cardiac, Labs) Reviewed 09/21/23 CT Head without No evidence of intracranial hemorrhage or other acute finding. 04/19/22 CT Head without No acute intracranial abnormality. 04/04/22 CT head without No acute intracranial abnormality. 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 He arouses to stimuli. The patient is oriented to person, hospital , month, year. When asked why he came to the hospital, he reports because I passed out. He denies any lightheadedness. He denies any recent illness. He denies neck stiffness/ pain. Does report a headache. Does not check his blood pressure at home. Has DM and reports fluctuating glucose readings. The patient denies illicit substance abuse. He denies any new medications. He feels that he is back to his baseline at this time. He denies headache, diplopia, blurred vision, dysarthria, dysphagia, focal weakness. Nursing staff denies any acute changes overnight. There was reported confusion overnight and patient was being restless. Review Of Systems Currently Denies: Gen: fevers, chills, appetite or weight changes ENT: dry mouth, ringing in the ears CV: chest pain, palpitations Resp: cough, shortness of breath GI: abdominal pain, nausea : urinary incontinence, dysuria MSK: muscle cramps, Skin: rashes Hematologic: bruises OBJECTIVE: Physical Examination:Temp: [97.5 F (36.4 C)-99.2 F (37.3 C)] 97.8 F (36.6 C) Pulse (Heart Rate): [60-116] 95 Resp Rate: [12-26] 18 BP: (93-196)/(53-91) 178/86 O2 Sat (%): [80 %-100 %] 97 % Body mass index is 25.58 kg/m . Vitals: 09/23/23 0800 09/23/23 0801 09/23/23 0847 09/23/23 1000 BP: 155/82 152/78 178/86 Pulse: 91 101 95 Resp: 18 20 18 Temp: 97.8 degrees F (36.6 degrees C) TempSrc: Oral SpO2: 97% 98% 97% Weight: Height: GARCIA: DNFC: Does Not Follow Commands KENN: Unable to Assess Physical Exam GENERAL: General Appearance: In NAD Neck: Supple Respiratory Effort: Normal Extremities: No edema Skin: No rashes visualized MENTAL STATUS: Alertness, Attention Span & Concentration: Normal Language: Normal Speech: Normal Orientation: Name, month, hospital , year. Disoriented to city Memory, Recent & Remote: mild impairment Fund of Knowledge: Normal CRANIAL NERVES: II - Visual Castillo: Normal II, III: Pupils: PERRL III, IV, : Eye Movements: Normal (EOMI, No ptosis, No nystagmus) V - Facial Sensation: Normal VII: Face Symmetry & Strength: Normal VIII - Hearing: Normal IX, X - Palate:: Normal XI - Shoulder Shrug: Normal XII - Tongue Protrusion: Normal COORDINATION & GROSS MOTOR: Abnormal Movements: None Coordination Nmymdl-ze-Kxah: Normal Coordination Leld-Vzum-Nrji: Normal Drift: None Tone: Normal Bulk: Normal MUSCLE STRENGTH: Right Muscle Strength Left 5 Shoulder Abduction (Deltoid) 5 5 Elbow Flexion (Biceps) 5 5 Elbow Extension (Triceps) 5 5 Finger Abduction (Interossei) 5 5 Hip Flexion (Iliopsoas) 5 5 Knee Extension (Quads) 5 5 Knee Flexion (Hamstrings) 5 5 Dorsiflexion (Anterior Tibialis) 5 MOTOR GARCIA: 5 Normal (Normal Power) 4 Mild Weakness (Movement against moderate resistance over a full range of motion) 3 Moderate Weakness (Movement against gravity over almost full range of motion) 2 Severe Weakness (Movement with gravity eliminated over almost full range of motion) 1 Trace Movement (flicker of contraction visible or palpable) 0 No Movement (No contraction visible or palpable) KENN Unable to Assess SENSATION: Fine Touch: Normal Patient verbally consents to the submissions of a Video health visit, patient is aware of the risks, benefits, and possible coinsurance/copay cost. Video was conducted by the provider in the office: [address] [place] [address] and the patient offsite: [facility] Time spent in medical discussion with patient 38 minutes Associated attestation - Cecil Yu MD - 09/23/2023 3:21 PM EST I have personally visualized and examined José Luis Gorman and I agree with the physical exam as stated below. I have personally reviewed all available clinical data related to today's encounter including, but not limited to, radiology images and reports, laboratory data, and procedure reports. I have been fully involved in formulation of the assessment and plan and agree with the RUSSIAN LANGUAGE PROFESSOR findings and plan of care as documented. I agree with their findings and plan with any exceptions or additions noted below. The patient is a 47-year-old female with history of diabetes mellitus and hypertension who was brought to the emergency room due to acute mental status change. The patient was evaluated and required intubation in the emergency room. The patient did have a CT scan of the brain which did not reveal evidence of large vessel intracranial arch cranial cerebral artery stenosis or occlusion. The patient did have a toxic screen positive for benzodiazepines and MDMA. The patient is currently lethargic but arousable with likely multifactorial metabolic encephalopathy contributing to current condition. I cannot completely exclude underlying encephalopathy or seizure contributing to the patient's symptoms. I cannot exclude an intracranial process such as stroke, inflammation, or hypoxia. -I recommend obtaining an MRI scan of the brain to assess for an intracranial process such as stroke or ischemia contributing to his symptoms -I have reviewed the EEG revealed slowing consistent with generalized encephalopathy -I will obtain blood work to assess for metabolic process contributing to the patient's symptoms -I will continue to follow patient clinically with medical management make further recommendations based on his clinical course and the above evaluation. I spent 20 minutes with the patient of which greater than 50% of time was spent counseling the patient on the medications and outpatient treatment plan. Patient verbally consents to the submissions of a Video health visit. Please see attested note for locations and time for consented visit and time spent with patient. Portions of this chart were created using StyleCaster electronic dictation. Please excuse any typographical or grammatical errors contained herein as a result. [facility] SPEECH-LANGUAGE PATHOLOGY Inpatient Clinical Dysphagia Evaluation Date of Admission: 09/21/2023 Date of Evaluation: 09/23/2023 Attending Physician: Karl Candelario MD Admitting Diagnosis: ICD-10-CM 1. Altered mental status, unspecified altered mental status type R41.82 2. Hypertensive emergency I16.1 Treating Diagnosis: Dysphagia, other R13.19 Current Method of Nutrition: NPO without meds History of Presenting Illness: José Luis Gorman is a 47 y.o. male who presents to [facility] ICU given AMS. He was intubated on 09/21/23 and extubated on 09/22/23. His drug screen was positive for Brian and MDMA. A Brain MRI from yesterday found no acute process. José Luis Gorman was referred for a dysphagia evaluation given extubation and AMS. Prior FURNACE CARETAKER history/Instrumentals: No previous history of ST. No past medical history on file. No past surgical history on file. Evaluation: Position For Evaluation: upright Anticipatory Phase: Intact Exam limited/influenced by cognition: No Current Respiratory Status: Room Air ORAL MOTOR EXAM Mandibular Strength:WFL ROM: WFL Labial Strength:WFL ROM: WFL Coordination:WFL Lingual Strength:WFL ROM: WFL Coordination:WFL Oral Mucosa WFL Velar Movement WFL Vocal Quality WFL Dentition intact Oral Motor Summary: Oral motor exam appears WFL. TRIAL RESPONSE Thin Liquids (IDDSI 0) Cup, Straw, and Self Fed swallows without overt s/s of penetration/aspiration Pureed (IDDSI 4) Tsp and Self Fed swallows without overt s/s of penetration/aspiration Soft and Bite Sized (IDDSI 6) Self Fed swallows without overt s/s of penetration/aspiration Regular (IDDSI 7) Self Fed swallows without overt s/s of penetration/aspiration ORAL PHASE: WFL Labial Closure Intact Mastication Intact Bolus transfer Intact Oral Clearance Intact Cough before the swallow absent Oral Phase Summary: Oral phase appears WFL. PHARYNGEAL PHASE: Appears WFL Perceived Swallow Appears Timely Cough Response No Throat Clear No Suspect Pharyngeal Constriction Deficit No Pharyngeal Phase Summary: Pharyngeal phase appears WFL. STRATEGIES TRIALED/Response N/A N/A [place] Swallow Screen: (administered by: Nursing) [place] Swallow Screening Screening Exclusion Criteria: unable to remain alert for testing [place] Swallow Screening Result: excluded from swallow screen = NPO Clinical Impressions José Luis Gorman is a 47 y.o. male seen 09/23/2023 for dysphagia evaluation given extubation. He presents with WFL oral phase and pharyngeal phase that appears WFL. Suspect pharyngeal phase of swallow is WFL without clinical indicators of penetration, aspiration, or pharyngeal clearance. Results and recommendations discussed with patient and nurse, including diet recommendations of regular diet with thin liquids and medications whole with thin liquids. Diet Recommendations and Strategies Regular Thin Liquids Meds whole with thin liquid Plan of Care: Frequency: 1x follow up Duration: 1 week Goals: Jersey Knitter: José Luis Ben will be able to consume a Regular with Thin Liquids independently with no evidence of pulmonary or nutritional compromise. Short term: José Luis Gorman will consume recommended diet with adequate clearing and no symptoms of penetration/aspiration. José Luis Gorman will participate in ongoing assessment for diet advancement and/or readiness for instrumental evaluation of swallowing. José Luis Gorman will consume therapeutic trials of thin liquids without signs/symptoms of penetration/aspiration. José Luis Gorman and/or family will demonstrate adequate comprehension of clinical education regarding dysphagia diagnosis, diet, and treatment recommendations. FURNACE CARETAKER will assist in establishing adequate oral hygiene for reduced risk of pulmonary compromise given dysphagia diagnosis. Natty Desai MS, CCC-FURNACE CARETAKER Speech-Language Pathologist Total Treatment Time: 15 minutes Chart reviewed. Patient extubated this afternoon. SW attempted to speak with patient x2 after extubation, neurology in room and then patient was at MRI. Will continue to follow. documented in this encounter [facility] 09-23-2023 Nurse Note Head to toe reassessment completed by senior copywriter and is unchanged from previous head to toe assessment, please refer to flow sheets. [facility] 09-23-2023 Procedure note Associated Ord er(s): EEG AWAKE, ROUTINE Interpreting physician: Cecil Yu M.D. This is a routine EEG performed on a 47 y.o. year-old male using standard 10-20 lead placement and a [employer] system. All data was obtained digitally and is available for reformatting and re-montage. There is continuous slow generalized activity in the 1-3 Hz range and 20-40 Microvolts amplitude range recorded in A generalized pattern throughout the record. There is some theta activity in the 4-6 Hz range and 20-40 microvolts amplitude range recorded intermixed throughout the record. There is no discernible posterior dominant rhythm which differentiates itself from the generalized slowing. There is no epileptiform activity recorded during the record. There are no seizures recorded during the record. Impression: This is an abnormal EEG due to continuous slow generalized activity consistent with a moderate diffuse encephalopathy. [facility] 09-23-2023 Procedure note Associated Ord er(s): EEG AWAKE, ROUTINE Interpreting physician: Cecil Yu M.D. This is a routine EEG performed on a 47 y.o. year-old male using standard 10-20 lead placement and a [employer] system. All data was obtained digitally and is available for reformatting and re-montage. There is continuous slow generalized activity in the 1-3 Hz range and 20-40 Microvolts amplitude range recorded in A generalized pattern throughout the record. There is some theta activity in the 4-6 Hz range and 20-40 microvolts amplitude range recorded intermixed throughout the record. There is no discernible posterior dominant rhythm which differentiates itself from the generalized slowing. There is no epileptiform activity recorded during the record. There are no seizures recorded during the record. Impression: This is an abnormal EEG due to continuous slow generalized activity consistent with a moderate diffuse encephalopathy. documented in this encounter [facility] 09-23-2023 Plan of care note Problem: Dysphagia (Adult) Goal: Functional/Safe Swallow Description: Diet Recommendations and Strategies Regular Thin Liquids Meds whole with thin liquid Plan of Care: Frequency: 1x follow up Duration: 1 week Goals: Jersey Knitter: José Luis Gorman will be able to consume a Regular with Thin Liquids independently with no evidence of pulmonary or nutritional compromise. Short term: José Luis Gorman will consume recommended diet with adequate clearing and no symptoms of penetration/aspiration. José Luis Gorman will participate in ongoing assessment for diet advancement and/or readiness for instrumental evaluation of swallowing. José Luis Gorman will consume therapeutic trials of thin liquids without signs/symptoms of penetration/aspiration. José Luis Gorman and/or family will demonstrate adequate comprehension of clinical education regarding dysphagia diagnosis, diet, and treatment recommendations. F[employer] CARET[employer] will assist in establishing adequate oral hygiene for reduced risk of pulmonary compromise given dysphagia diagnosis. Outcome: Ongoing [facility] 09-23-2023 Nurse Note Patient more alert than previous assessment, this nurse asked patient if he remembers any events that has happened in the last day, he said he does remember a tube being down his thoat, but does not remember why. Educated patient on what happened. [facility] 09-23-2023 Nurse Note Patient able to tell this nurse it is 2022, still states he is at [facility], when reoriented that he is in [place] he states shoot I knew that . Patient pleasant but still restless in the bed, continues to roll in circles, and get up on hands and knees and rock back and forth. [facility] 09-23-2023 Nurse Note Patient had episode of bowel incontinence. Patient cleaned, and placed in a brief, linens changed as well. [facility] 09-22-2023 Nurse Note Patient continues to pull lines and lead at this time. Patient pulled IV out. This nurse placed new iv in left hand at this time. [facility] 09-22-2023 Nurse Note Patient continues to roll around in bed, and get on his hands and knees in the bed. This nurse redirected patient at this time. [facility] 09-22-2023 Nurse Note Patient calm, but remains confused at this time. Stated he is at [facility], the year is 2002, and Roger is the president. Redirected patient at this time. [facility] 09-22-2023 Nurse Note Patient responses to staff when he wants too. Patient incontinent of stool for second time. Patient cleaned and repositioned wires and IV tubing untangled. Tele leads replaced. IV flushed with blood return in left should IV, patient shook head 'no' when asked if that was painful. Iv fluids started in that are. Patient's face is flushed and skin feels hot to touch. 99.2 was temp on temporal thermometer. Jennifer Lopez RN [facility] 09-22-2023 Nurse Note Patient had rolled back on his side. IV's hooked back up. Importance of IV's explained to patient, patient nodded head in yes' motion. Iv's running for less then 5 minutes when patient rolled back up to all fours, which does not allow IV to run. Other IV site is left should is red and is difficult to flush. Due to patient's position, unable to attempt new IV sight placement at this time. Jennifer Lopez RN [facility] 09-22-2023 Nurse Note Patient is currently on all fours in bed, rocking back an fourth. Patient, will not roll over on to back for staff. Patient does not answer staff when they ask him to roll over or if he is having pain anywhere. Unable to get IV in Right AC to run with how patient is holding his arms. Will attempt to run IV's whenever patient returns to a proper position in the bed. Jennifer Lopez RN [facility] 09-22-2023 Nurse Note Delia discontinued per . Patient going to MRI. Neuro in to see. Jennifer Lopez RN [facility] 09-22-2023 Nurse Note Patient still drowsy, wakes for a brief moment, will open eyes and look at you but will shake his head no to any question asked him. Son's updated on plan of care for patient. Jennifer Lopez RN [facility] 09-22-2023 Nurse Note Patient was extubated at 1340, patient is drowsy but vitals are stable. Neurology consult made. RSV swab done and sent to lab. Son's at bedside. Jennifer Lopez RN [facility] 09-22-2023 Progress note Formatting of t his note might be different from the original. Patient extubated and placed on 2LPM nasal cannula. [facility] 09-22-2023 Consult note Associated Order (s): IP CONSULT TO NEUROLOGY Neurology Inpatient Consult (Video) [facility] 09/22/2023 Patient: José Luis Gorman Date of : 1975 (47 y.o.) Referring Provider: Refer to consult order in electronic medical record PCP: Paulina Winters ASSESSMENT: Principal Diagnosis: Acute respiratory failure Active Pertinent Problems and Diagnoses Present on Admission: Acute respiratory failure Acute delirium Polysubstance use disorder Renal insufficiency Additional Active Pertinent Problems and Diagnoses No problems updated. 47 y.o. male presented to [facility] on 09/21/2023 with AMS PLAN: Altered mentation- Cannot rule out acute intracranial lesion. Cannot rule out seizure. Cannot rule out hypertensive encephalopathy with hyperammonemia, dehydration, uncontrolled DM, and various metabolic disturbances contributing EEG B12/ folate MRI Brain without contrast Medical team to manage metabolic disturbances Will continue to monitor and make further recommendations based on clinical course Assessment was discussed and plan formulated with collaborating physician, Dr. Yu. This provider spent ample amount of time reviewing patient's chart. This includes: provider notes, therapy, labs, imaging, procedures, medications, etc.. DIAGNOSTIC TESTING SUMMARY: Resulted Testing: (MRI/CT/XR, EEG, EMG, CSF, Cardiac, Labs) Reviewed 09/21/23 CT Head without No evidence of intracranial hemorrhage or other acute finding. 04/19/22 CT Head without No acute intracranial abnormality. 04/04/22 CT head without No acute intracranial abnormality. Chronic appearing right sphenoid sinus mucosal disease SUBJECTIVE: Chief Complaint/Reason for Consult: The patient is being seen at the request of Geovanna Ivan APRN for evaluation of delirium. Informant(s): Patient is unable to provide significant history, medical staff, medical record. History of Present Illness José Luis Gorman is a 47 y.o. male with past medical history of DM, HTN. 09/21/23- Patient presented to Er for Ams. Patient was found altered by his sone. He was noted to be combative with EMS. Medicated with 7.5mg of Versed due to physical aggression. He was then brought to Er for further evaluation.BP in ER 227/100. HR- 91. Upon arrival, he was unresponsive. Rapid sequence intubation was performed. He was also started on a propofol drip. Cth obtain and negative for acute abnormalities. BP was as high as 289/149. He was started on a cardene drip and transferred to ICU for further care. BS- 245. BUN- 37. Creatinine- 1.3. Lactate- 2.1. Tox screen positive for benzodiazepines and MDMA. Urinalysis did not suggest UTI. Ammonia- 42. CK- 282. TSH -WNR. A1c-11.4. Currently, patient is lying in bed with eyes closed. He will arouse to stimuli. He is oriented to person and hospital . He is unable to provide any significant history. Denies any recent illness. He denies any focal neurological deficits. He follows some commands. Patient currently denies headache, diplopia, blurred vision, dysarthria, focal weakness, sensory disturbance. Patient currently denies neck pain/ stiffness. Nursing staff reports that patient was extubated at 1340 today. He has been off of sedation since 1330. It was reported to staff that patient was complaining to a friend/ family member about back/ head pain at noon on day of presentation. The medical team has placed the patient on IV ATB's and antiviral medication. Cxr did not reveal any abnormalities. Review of Illness: 12/28/22 Dr. Ignacio-Mr. Rodriguez is a 47-year-old man for whom I was consulted for confusion. The patient was brought in yesterday by EMS after his mother called EMS as the patient displayed some signs of confusion. The patient says that he was lighting a wood burner at home, then started to smell a burning small, he started to experience a headache and then became confused. By the time I saw him today, the confusion had resolved. The patient denied any focal weakness or numbness otherwise. The ED physician did not document any focal weakness or numbness. The patient states that he is diabetic and hypertensive. He is supposed to be on aspirin, but stopped it himself 3 weeks ago. Physical examination: The patient is fully awake, appears to be alert and oriented. Gives good history. No facial asymmetry or weakness, no dysarthria or dysphonia. No drift of arms or legs. Impression: Headache, confusion following wood burning within the home is most consistent with carbon monoxide poisoning. However, given history of diabetes and hypertension, transient ischemic attack cannot be fully excluded. Recommendations: Recommend at least restarting aspirin which she was already supposed to be on. He may also benefit from statin as well. Outpatient follow-up on echo results that are still pending. May be a good idea to have a carbon monoxide monitor checked at home, would avoid wood burning in the same location until better ventilation can be arranged for. Review Of Systems KENN due to altered mentation Past Medical History: Marjorie past medical history on file. Social History He has no history on file for tobacco use, alcohol use, and drug use. Family History His family history is not on file. Not on File Current Scheduled Medications acyclovir 10 mg/kg (Adjusted) Intravenous Q8H Atorvastatin 10 mg Oral QHS cefTRIAXone 1 g Intravenous Q24H Insulin regular Subcutaneous Q6H And glucose 4-8 tablet Oral See admin instructions And Dextrose 10% 250 mL Intravenous See admin instructions enoxaparin 40 mg Subcutaneous Daily Pantoprazole 40 mg Oral Daily OBJECTIVE: Physical Examination:Temp: [97.2 F (36.2 C)-98.7 F (37.1 C)] 97.8 F (36.6 C) Pulse (Heart Rate): [60-148] 83 Resp Rate: [12-36] 19 BP: (70-289)/(44-149) 171/88 O2 Sat (%): [80 %-100 %] 99 % Weight: [84.9 kg (187 lb 3.2 oz)-85.5 kg (188 lb 9.6 oz)] 85.5 kg (188 lb 9.6 oz) Body mass index is 25.58 kg/m . Vitals: 09/22/23 1200 09/22/23 1215 09/22/23 1230 09/22/23 1245 BP: 149/73 150/77 171/88 Pulse: 77 80 83 Resp: 17 19 Temp: TempSrc: SpO2: 100% (!) 80% 99% 99% Weight: Height: GARCIA: DNFC: Does Not Follow Commands KENN: Unable to Assess Physical Exam GENERAL: General Appearance: Ill appearing Neck: Supple Respiratory Effort: Normal Extremities: No edema Skin: Abrasions to bilateral lower extremities. MENTAL STATUS: Alertness, Attention Span & Concentration: Drowsy- will arouse to stimuli and fall back to sleep Language: Normal Speech: Normal Orientation: Name, year, hospital Memory, Recent & Remote: impaired Fund of Knowledge: impaired CRANIAL NERVES: II - Visual Castillo: intact to visual threat II, III: Pupils: PERRL III, IV, : Eye Movements: Normal (EOMI, No ptosis, No nystagmus) V - Facial Sensation: Normal VII: Face Symmetry & Strength: DNFC VIII - Hearing: Normal IX, X - Palate:: Normal XI - Shoulder Shrug: DNFC XII - Tongue Protrusion: Normal COORDINATION & GROSS MOTOR: Abnormal Movements: None Coordination Wkxdky-jc-Znfd: Normal Coordination Lqrk-Asft-Whtw: Normal- requires demonstration Drift: None Tone: Normal Bulk: Normal MUSCLE STRENGTH: Hand grasp equal bilaterally. Able to overcome antigravity and maintain. SENSATION: Fine Touch: Normal Patient verbally consents to the submissions of a Video health visit, patient is aware of the risks, benefits, and possible coinsurance/copay cost. Video was conducted by the provider in the office: [address] [place] [id number] and the patient offsite: [facility] Time both providers spent in medical discussion with patient 72 minutes Aracely Richard APRN-[facility] Associated attestation - Cecil Yu MD - 09/22/2023 9:22 PM EST I have personally visualized and examined José Luis Gorman and I agree with the physical exam as stated below. I have personally reviewed all available clinical data related to today's encounter including, but not limited to, radiology images and reports, laboratory data, and procedure reports. I have been fully involved in formulation of the assessment and plan and agree with the [employer] findings and plan of care as documented. I agree with their findings and plan with any exceptions or additions noted below. The patient is a 47-year-old female with history of diabetes mellitus and hypertension who was brought to the emergency room due to acute mental status change. The patient was evaluated and required intubation in the emergency room. The patient did have a CT scan of the brain which did not reveal evidence of large vessel intracranial arch cranial cerebral artery stenosis or occlusion. The patient did have a toxic screen positive for benzodiazepines and MDMA. The patient is currently lethargic but arousable with likely multifactorial metabolic encephalopathy contributing to current condition. I cannot completely exclude underlying encephalopathy or seizure contributing to the patient's symptoms. I cannot exclude an intracranial process such as stroke, inflammation, or hypoxia. -I recommend obtaining an MRI scan of the brain to assess for an intracranial process such as stroke or ischemia contributing to his symptoms -Recommend obtaining an EEG to assess for underlying encephalopathy or seizure -I will obtain blood work to assess for metabolic process contributing to the patient's symptoms -I will continue to follow patient clinically with medical management make further recommendations based on his clinical course and the above evaluation. I spent 40 minutes with the patient of which greater than 50% of time was spent counseling the patient on the medications and outpatient treatment plan. Patient verbally consents to the submissions of a Video health visit. Please see attested note for locations and time for consented visit and time spent with patient. Portions of this chart were created using [employer] electronic dictation. Please excuse any typographical or grammatical errors contained herein as a result. [facility] 09-22-2023 Consult note Associated Order (s): IP CONSULT TO NEUROLOGY Neurology Inpatient Consult (Video) [facility] 09/22/2023 Patient: José Luis Gorman Date of : 1975 (47 y.o.) Referring Provider: Refer to consult order in electronic medical record PCP: Paulina Winters ASSESSMENT: Principal Diagnosis: Acute respiratory failure Active Pertinent Problems and Diagnoses Present on Admission: Acute respiratory failure Acute delirium Polysubstance use disorder Renal insufficiency Additional Active Pertinent Problems and Diagnoses No problems updated. 47 y.o. male presented to [facility] on 09/21/2023 with AMS PLAN: Altered mentation- Cannot rule out acute intracranial lesion. Cannot rule out seizure. Cannot rule out hypertensive encephalopathy with hyperammonemia, dehydration, uncontrolled DM, and various metabolic disturbances contributing EEG B12/ folate MRI Brain without contrast Medical team to manage metabolic disturbances Will continue to monitor and make further recommendations based on clinical course Assessment was discussed and plan formulated with collaborating physician, Dr. Yu. This provider spent ample amount of time reviewing patient's chart. This includes: provider notes, therapy, labs, imaging, procedures, medications, etc.. DIAGNOSTIC TESTING SUMMARY: Resulted Testing: (MRI/CT/XR, EEG, EMG, CSF, Cardiac, Labs) Reviewed 09/21/23 CT Head without No evidence of intracranial hemorrhage or other acute finding. 04/19/22 CT Head without No acute intracranial abnormality. 04/04/22 CT head without No acute intracranial abnormality. Chronic appearing right sphenoid sinus mucosal disease SUBJECTIVE: Chief Complaint/Reason for Consult: The patient is being seen at the request of Geovanna Ivan APRN for evaluation of delirium. Informant(s): Patient is unable to provide significant history, medical staff, medical record. History of Present Illness José Luis Gorman is a 47 y.o. male with past medical history of DM, HTN. 09/21/23- Patient presented to Er for Ams. Patient was found altered by his sone. He was noted to be combative with EMS. Medicated with 7.5mg of Versed due to physical aggression. He was then brought to Er for further evaluation.BP in ER 227/100. HR- 91. Upon arrival, he was unresponsive. Rapid sequence intubation was performed. He was also started on a propofol drip. Cth obtain and negative for acute abnormalities. BP was as high as 289/149. He was started on a cardene drip and transferred to ICU for further care. BS- 245. BUN- 37. Creatinine- 1.3. Lactate- 2.1. Tox screen positive for benzodiazepines and MDMA. Urinalysis did not suggest UTI. Ammonia- 42. CK- 282. TSH -WNR. A1c-11.4. Currently, patient is lying in bed with eyes closed. He will arouse to stimuli. He is oriented to person and hospital . He is unable to provide any significant history. Denies any recent illness. He denies any focal neurological deficits. He follows some commands. Patient currently denies headache, diplopia, blurred vision, dysarthria, focal weakness, sensory disturbance. Patient currently denies neck pain/ stiffness. Nursing staff reports that patient was extubated at 1340 today. He has been off of sedation since 1330. It was reported to staff that patient was complaining to a friend/ family member about back/ head pain at noon on day of presentation. The medical team has placed the patient on IV ATB's and antiviral medication. Cxr did not reveal any abnormalities. Review of Illness: 12/28/22 Dr. Ignacio-Mr. Rodriguez is a 47-year-old man for whom I was consulted for confusion. The patient was brought in yesterday by EMS after his mother called EMS as the patient displayed some signs of confusion. The patient says that he was lighting a wood burner at home, then started to smell a burning small, he started to experience a headache and then became confused. By the time I saw him today, the confusion had resolved. The patient denied any focal weakness or numbness otherwise. The ED physician did not document any focal weakness or numbness. The patient states that he is diabetic and hypertensive. He is supposed to be on aspirin, but stopped it himself 3 weeks ago. Physical examination: The patient is fully awake, appears to be alert and oriented. Gives good history. No facial asymmetry or weakness, no dysarthria or dysphonia. No drift of arms or legs. Impression: Headache, confusion following wood burning within the home is most consistent with carbon monoxide poisoning. However, given history of diabetes and hypertension, transient ischemic attack cannot be fully excluded. Recommendations: Recommend at least restarting aspirin which she was already supposed to be on. He may also benefit from statin as well. Outpatient follow-up on echo results that are still pending. May be a good idea to have a carbon monoxide monitor checked at home, would avoid wood burning in the same location until better ventilation can be arranged for. Review Of Systems KENN due to altered mentation Past Medical History: Marjorie past medical history on file. Social History He has no history on file for tobacco use, alcohol use, and drug use. Family History His family history is not on file. Not on File Current Scheduled Medications acyclovir 10 mg/kg (Adjusted) Intravenous Q8H Atorvastatin 10 mg Oral QHS cefTRIAXone 1 g Intravenous Q24H Insulin regular Subcutaneous Q6H And glucose 4-8 tablet Oral See admin instructions And Dextrose 10% 250 mL Intravenous See admin instructions enoxaparin 40 mg Subcutaneous Daily Pantoprazole 40 mg Oral Daily OBJECTIVE: Physical Examination:Temp: [97.2 F (36.2 C)-98.7 F (37.1 C)] 97.8 F (36.6 C) Pulse (Heart Rate): [60-148] 83 Resp Rate: [12-36] 19 BP: (70-289)/(44-149) 171/88 O2 Sat (%): [80 %-100 %] 99 % Weight: [84.9 kg (187 lb 3.2 oz)-85.5 kg (188 lb 9.6 oz)] 85.5 kg (188 lb 9.6 oz) Body mass index is 25.58 kg/m . Vitals: 09/22/23 1200 09/22/23 1215 09/22/23 1230 09/22/23 1245 BP: 149/73 150/77 171/88 Pulse: 77 80 83 Resp: 17 19 19 Temp: TempSrc: SpO2: 100% (!) 80% 99% 99% Weight: Height: GARCIA: DNFC: Does Not Follow Commands KENN: Unable to Assess Physical Exam GENERAL: General Appearance: Ill appearing Neck: Supple Respiratory Effort: Normal Extremities: No edema Skin: Abrasions to bilateral lower extremities. MENTAL STATUS: Alertness, Attention Span & Concentration: Drowsy- will arouse to stimuli and fall back to sleep Language: Normal Speech: Normal Orientation: Name, year, hospital Memory, Recent & Remote: impaired Fund of Knowledge: impaired CRANIAL NERVES: II - Visual Castillo: intact to visual threat II, III: Pupils: PERRL III, IV, : Eye Movements: Normal (EOMI, No ptosis, No nystagmus) V - Facial Sensation: Normal VII: Face Symmetry & Strength: DNFC VIII - Hearing: Normal IX, X - Palate:: Normal XI - Shoulder Shrug: DNFC XII - Tongue Protrusion: Normal COORDINATION & GROSS MOTOR: Abnormal Movements: None Coordination Midvkk-lp-Wxzy: Normal Coordination Xhuo-Zdco-Mvya: Normal- requires demonstration Drift: None Tone: Normal Bulk: Normal MUSCLE STRENGTH: Hand grasp equal bilaterally. Able to overcome antigravity and maintain. SENSATION: Fine Touch: Normal Patient verbally consents to the submissions of a Video health visit, patient is aware of the risks, benefits, and possible coinsurance/copay cost. Video was conducted by the provider in the office: [address] [place] [address] and the patient offsite: [facility] Time both providers spent in medical discussion with patient 72 minutes Aracely Richard APRN-[facility] Associated attestation - Cecil Yu MD - 09/22/2023 9:22 PM EST I have personally visualized and examined José Luis Gorman and I agree with the physical exam as stated below. I have personally reviewed all available clinical data related to today's encounter including, but not limited to, radiology images and reports, laboratory data, and procedure reports. I have been fully involved in formulation of the assessment and plan and agree with the [facility] findings and plan of care as documented. I agree with their findings and plan with any exceptions or additions noted below. The patient is a 47-year-old female with history of diabetes mellitus and hypertension who was brought to the emergency room due to acute mental status change. The patient was evaluated and required intubation in the emergency room. The patient did have a CT scan of the brain which did not reveal evidence of large vessel intracranial arch cranial cerebral artery stenosis or occlusion. The patient did have a toxic screen positive for benzodiazepines and MDMA. The patient is currently lethargic but arousable with likely multifactorial metabolic encephalopathy contributing to current condition. I cannot completely exclude underlying encephalopathy or seizure contributing to the patient's symptoms. I cannot exclude an intracranial process such as stroke, inflammation, or hypoxia. -I recommend obtaining an MRI scan of the brain to assess for an intracranial process such as stroke or ischemia contributing to his symptoms -Recommend obtaining an EEG to assess for underlying encephalopathy or seizure -I will obtain blood work to assess for metabolic process contributing to the patient's symptoms -I will continue to follow patient clinically with medical management make further recommendations based on his clinical course and the above evaluation. I spent 40 minutes with the patient of which greater than 50% of time was spent counseling the patient on the medications and outpatient treatment plan. Patient verbally consents to the submissions of a Video health visit. Please see attested note for locations and time for consented visit and time spent with patient. Portions of this chart were created using [employer] electronic dictation. Please excuse any typographical or grammatical errors contained herein as a result. documented in this encounter [facility] 09-22-2023 Progress note Formatting of t his note might be different from the original. ABG results given to Dr. Candelario. [facility] [employer] [facility] 09-22-2023 Progress note Formatting of t his note might be different from the original. Dr. Candelario called regrding abg results. No answer. Message left. [facility] [employer] [facility] 09-22-2023 Progress note Formatting of t his note might be different from the original. PSV trial started with PS and PEEP 5, FIO2 30%. VT 432 mL, minute volume 7.33 L. HR 78, RR12, SpO2 99%. At 1126, HR 59, SpO2 100%, RR 18, Vt 446 mL, minute volume 8.15L. At 1204, HR 82, SpO2 100%, RR 15, Vt 709 mL, minute volume 12.4L. ABG was drawn. Patient remains in PS mode. [facility] 09-22-2023 History and physical note History and Physical Examination 09/21/2023 4:24 PM Chief Complaint Patient presents with Other Unresponsive. Snoring respirations and periods of apnea History of Present Illness: The patient is a 47-year-old male who presented to the emergency department for evaluation of acute delirium. Please note that the patient is currently sedated on mechanical ventilator within the ICU. All information was obtained from review of available records and discussion with the nursing staff. According to reports the patient was found by his son with an altered mental status. EMS was summoned and the patient was apparently combative and treated with Versed. The patient following this became lethargic, slightly obtunded. He was transferred to the emergency department where he was ultimately intubated due to combativeness and airway protection. Routine evaluation was completed. A CT scan of the head was nonacute. Laboratory studies were unremarkable. A drug screen was consistent with benzodiazepines as well as MDMA. The patient was found to be significantly hypertensive was started on a Cardene drip. He was admitted to the ICU for further evaluation and management. Overnight the patient's blood pressure did respond to the Cardene and he ultimately became slightly hypotensive with worsening combativeness. The patient's propofol was switched to Precedex. Since then the patient was resting comfortably throughout the evening. Chest x-ray obtained was nonacute. Hemodynamics have been stable. No past medical history on file. No past surgical history on file. Social History Tobacco Use Smoking status: Not on file Smokeless tobacco: Not on file Substance Use Topics Alcohol use: Not on file No family history on file. No medications prior to admission. Not on File Review of Systems: Unable to assess as patient is sedated in ICU on ventilator support PHYSICAL EXAM: Patient Vitals for the past 8 hrs: BP Temp Temp src Pulse Resp SpO2 Height Weight 09/22/23 0813 99/58 97.8 F (36.6 C) -- 67 20 -- -- -- 09/22/23 0800 99/58 -- -- 68 16 100 % -- -- 09/22/23719 -- 97.8 F (36.6 C) Temporal -- -- -- -- -- 09/22/23 0530 122/74 -- -- 83 -- 100 % -- -- 09/22/23 0520 126/77 -- -- 86 -- 100 % -- -- 09/22/23 0510 130/79 -- -- 90 -- 100 % -- -- 09/22/23 0500 133/80 -- -- 93 -- 100 % -- -- 09/22/23 0450 135/82 -- -- 97 -- 100 % -- -- 09/22/23 0440 137/82 97.5 F (36.4 C) Temporal 100 -- 100 % -- -- 09/22/23429 -- -- -- 101 -- 100 % -- -- 09/22/23419 -- -- -- 102 -- -- -- -- 09/22/23418 145/77 -- -- 104 -- -- -- -- 09/22/23409 -- -- -- 124 -- 95 % -- -- 09/22/23399 (!) 237/101 -- -- 134 -- 100 % 1.829 m (6') 85.5 kg (188 lb 9.6 oz) 09/22/23 0350 (!) 240/105 -- -- 144 -- (!) 85 % -- -- 09/22/23 0346 -- -- -- -- -- 100 % -- -- 09/22/23339 (!) 248/112 -- -- 144 -- (!) 86 % -- -- 09/22/23 0330 -- -- -- 148 -- (!) 87 % -- -- 09/22/23 0320 (!) 187/116 -- -- 134 -- -- -- -- 09/22/23 0310 181/84 -- -- 105 -- 100 % -- -- 09/22/23 0300 (!) 237/118 -- -- 140 (!) 36 100 % -- -- 09/22/23 0250 129/74 -- -- 91 16 95 % -- -- 09/22/23 0240 105/63 -- -- 84 16 99 % -- -- 09/22/23 0230 102/64 -- -- 85 17 99 % -- -- 09/22/23 0220 94/53 -- -- 81 17 99 % -- -- General: In ICU, sedated on Ventilator HEENT: Normalcephalic, atraumatic. Pupils equal, round, reactive, to light and accomodation B/L. Ears normal, no erythema or drainage. Bilateral nares patent without obvious drainage. Oral mucosa moist, pink, intact without ulcers or lesions. Neck: No JVD, no thyromegaly, no anterior or posterior cervical lymphadenopathy. Cardiovascular: Regular rate and rhythm, without murmurs, rubs, or gallops. Respiratory: Bilateral Upper and Lower Lobes anterior and posteriorly without wheezes, rales, or rhonchi Gastrointestinal: Soft, rounded, non-tender. Bowel sounds present x4 quadrants. No rebound. No organomegaly or masses noted upon deep palpation. Musculoskeletal: No edema, clubbing or cyanosis, pulses palpable 2+ distally. Muscle strength and tone symmetrical. Skin: Warm, Dry, Intact. No obvious rashes or lesions noted. Neuro: Responds to noxious stimuli. Physiatric: Sedated on ventilator Diagnostics: Admission on 09/21/2023 Component Date Value pH Arterial 09/21/2023 7.42 pCO2 Arterial 09/21/2023 40 pO2 Arterial 09/21/2023 492 (H) HCO3 09/21/2023 25.9 Base Excess 09/21/2023 1.3 CTHB 09/21/2023 14.1 % O2 HGB 09/21/2023 98.7 O2 Saturation 09/21/2023 99.9 Carboxyhemoglobin 09/21/2023 0.6 MetHB Arterial 09/21/2023 0.5 WBC (WHITE BLOOD COUNT) 09/21/2023 10.8 RBC 09/21/2023 4.98 HEMOGLOBIN (HGB) 09/21/2023 14.5 HEMATOCRIT (HCT) 09/21/2023 42.6 MEAN CELL VOLUME 09/21/2023 85.6 Mean Cell HGB 09/21/2023 29.1 MEAN CELL HGB CONCENTRAT* 09/21/2023 34.0 RBC DISTRIBUTION 09/21/2023 14.3 PLATELET COUNT 09/21/2023 176 MEAN PLATELET VOLUME 09/21/2023 8.5 DIFFERENTIAL TYPE 09/21/2023 AUTO DIFF NEUTROPHILS 09/21/2023 91.0 (H) LYMPHOCYTE 09/21/2023 5.6 (L) MONOCYTE % 09/21/2023 3.0 EOSINOPHIL % 09/21/2023 0.2 BASOPHIL % 09/21/2023 0.2 Absolute Neutrophil Count 09/21/2023 9.8 (H) LYMPHOCYTES, ABSOLUTE 09/21/2023 0.6 (L) MONOCYTES, ABSOLUTE 09/21/2023 0.3 ABSOLUTE EOSINOPHIL COUNT 09/21/2023 0.0 ABSOLUTE BASOPHIL COUNT 09/21/2023 0.0 Glucose 09/21/2023 245 (H) BUN 09/21/2023 37 (H) CREATININE SERUM 09/21/2023 1.30 (H) SODIUM 09/21/2023 135 (L) POTASSIUM 09/21/2023 4.0 CHLORIDE 09/21/2023 103 CALCIUM 09/21/2023 9.0 PROTEIN, TOTAL 09/21/2023 7.3 Albumin 09/21/2023 4.4 BILIRUBIN, TOTAL 09/21/2023 0.6 AST 09/21/2023 39 ALKALINE PHOSPHATASE 09/21/2023 103 CARBON DIOXIDE (CO2) 09/21/2023 24 A/G Ratio 09/21/2023 1.5 ALT 09/21/2023 34 GFR COMMENT 09/21/2023 Unable to calculate GFR due to inappropriate age/gender/creatinine value. LACTATE 09/21/2023 2.1 (HH) ALCOHOL, ETHYL, SERUM 09/21/2023 <10 VENTILATOR MODE 09/21/2023 ACVC FIO2 09/21/2023 100 RESPIRATORY RATE 09/21/2023 16 TIDAL VOLUME 09/21/2023 500 PEEP/CPAP 09/21/2023 5 SCREEN: MRSA 09/21/2023 NEGATIVE STAPHYOCOCCUS AUREUS BY * 09/21/2023 POSITIVE (A) CANNABINOIDS (MARIJUANA) 09/21/2023 NEGATIVE Cocaine Metabolite 09/21/2023 NEGATIVE Methamphetamine 09/21/2023 NEGATIVE Opiates 09/21/2023 NEGATIVE Amphetamine 09/21/2023 NEGATIVE Benzodiazepines 09/21/2023 POSITIVE (A) TRICYCLIC ANTIDEPRESSANT* 09/21/2023 NEGATIVE Methadone 09/21/2023 NEGATIVE Barbiturate 09/21/2023 NEGATIVE Oxycodone 09/21/2023 NEGATIVE Buprenorphine 09/21/2023 NEGATIVE Fentanyl 09/21/2023 NEGATIVE MDMA 09/21/2023 POSITIVE (A) COLOR, URINE 09/21/2023 YELLOW APPEARANCE, URINE 09/21/2023 CLEAR Specific Platinum, Urine 09/21/2023 >1.030 (H) PH URINE 09/21/2023 5.5 Urine Protein 09/21/2023 >300 (A) GLUCOSE, URINE 09/21/2023 500 (A) KETONES, URINE 09/21/2023 15 (A) BILIRUBIN, URINE 09/21/2023 NEGATIVE BLOOD, URINE DIPSTICK 09/21/2023 MODERATE (A) NITRITES, URINE 09/21/2023 NEGATIVE UROBILINOGEN, URINE 09/21/2023 0.2 LEUKOCYTE ESTERASE, URINE 09/21/2023 NEGATIVE WBC, URINE 09/21/2023 NEGATIVE RBC, URINE 09/21/2023 1 TO 5 Epithelial Cells UA 09/21/2023 NONE Mucus 09/21/2023 NEGATIVE BACTERIA, URINE 09/21/2023 TRACE (A) CRYSTALS, URINE 09/21/2023 NONE CASTS, URINE 09/21/2023 NONE COMMENT, URINE 09/21/2023 REFLEX CULTURE PER ESTABLISHED CRITERIA. GLUCOSE, POINT OF CARE 09/21/2023 232 (H) Mill Platform Supervisor 09/21/[phone] MAGNESIUM 09/21/2023 2.0 GLUCOSE, POINT OF CARE 09/21/2023 158 (H) [employer] Supervisor 09/21/[phone] GLUCOSE, POINT OF CARE 09/22/2023 109 (H) [employer] Supervisor 09/22/[phone] GLUCOSE, POINT OF CARE 09/22/2023 95 [employer] Supervisor 09/22/[phone] WBC (WHITE BLOOD COUNT) 09/22/2023 11.0 RBC 09/22/2023 4.39 HEMOGLOBIN (HGB) 09/22/2023 12.7 (L) HEMATOCRIT (HCT) 09/22/2023 38.0 (L) MEAN CELL VOLUME 09/22/2023 86.7 Mean Cell HGB 09/22/2023 28.9 MEAN CELL HGB CONCENTRAT* 09/22/2023 33.4 RBC DISTRIBUTION 09/22/2023 14.1 PLATELET COUNT 09/22/2023 151 MEAN PLATELET VOLUME 09/22/2023 8.5 DIFFERENTIAL TYPE 09/22/2023 AUTO DIFF NEUTROPHILS 09/22/2023 77.7 (H) LYMPHOCYTE 09/22/2023 12.4 (L) MONOCYTE % 09/22/2023 9.1 EOSINOPHIL % 09/22/2023 0.5 BASOPHIL % 09/22/2023 0.3 Absolute Neutrophil Count 09/22/2023 8.5 (H) LYMPHOCYTES, ABSOLUTE 09/22/2023 1.4 MONOCYTES, ABSOLUTE 09/22/2023 1.0 (H) ABSOLUTE EOSINOPHIL COUNT 09/22/2023 0.1 ABSOLUTE BASOPHIL COUNT 09/22/2023 0.0 Glucose 09/22/2023 72 BUN 09/22/2023 35 (H) CREATININE SERUM 09/22/2023 1.40 (H) SODIUM 09/22/2023 138 POTASSIUM 09/22/2023 4.2 CHLORIDE 09/22/2023 109 (H) CALCIUM 09/22/2023 8.2 (L) PROTEIN, TOTAL 09/22/2023 6.0 (L) Albumin 09/22/2023 3.4 (L) BILIRUBIN, TOTAL 09/22/2023 0.4 AST 09/22/2023 35 ALKALINE PHOSPHATASE 09/22/2023 76 CARBON DIOXIDE (CO2) 09/22/2023 23 A/G Ratio 09/22/2023 1.3 ALT 09/22/2023 25 ESTIMATED GFR, NON AFRIC* 09/22/2023 57 ESTIMATED GFR, A* 09/22/2023 69 GFR COMMENT 09/22/2023 Average GFR for 40-49 years old = 99. GLUCOSE, POINT OF CARE 09/22/2023 80 [employer] Supervisor 09/22/[phone] MAGNESIUM 09/22/2023 2.0 Impression and Plan: Principal Problem: Acute respiratory failure Active Problems: Acute delirium Polysubstance use disorder Renal insufficiency Acute delirium Secondary to drug effects CT head non-acute Supportive care Acute respiratory failure Patient without hypoxia - Intubated due to combativeness Attempt wean/extubate today CXR non-acute 02 per protocol, IS Routine aerosols Polysubstance use disorder Positive for benzos and MDMA Complete cessation will be advised Renal insufficiency Baseline appears to be - 1.3 - 1.4 Stable Trend labs Monitor intake and outputs Code Status: Full Code GI/DVT Prophylaxis: Protonix/Lovenox Cecil Ivan CNP completing HPI for Dr. Candelario 16 minutes spent of RUSSIAN LANGUAGE PROFESSOR time including assessment, planning, and discussion with nursing staff and patient Please note Portions of this note utilized [employer] software, please excuse any typographical or grammatical errors Associated attestation - Karl Candelario MD - 09/22/2023 10:40 PM EST I have personally seen and examined José Luis Gorman. I have personally reviewed all available clinical data related to this encounter including, but not limited to, radiolgraphs and reports, laboratory data, and procedure reports. I have been involved in formulation of the assessment and plan. DOS: 09/22/2023 HPI: very active gonzalez per sons has intermittent episodes of confusion. Was found very confused and agitated so was given versed by EMT and had to be intubated to protect airway. Today morning did good with extubation protocol but when I saw him he was still very obtunded. Overnight had periods of severe agitation needing haldol, precedex and diprivan caused hypotension Drug screen + for Brian and MDMA ROS: Ten systems reviewed, unless limited by patient' or care providers' inability or unavailability. Reported above or following. Assessment and additional plans: Acute delirium and agitation, etiology r/o seizure and post ictal state. Poly drug use with Side effects CKD III Empiric keppra, EEG DM II hemtoproteinuria Time: my 40 minutes including overnight vent management and today. Bedside and on the floor, including communicating with EDMD and MARIAN time. Not including procedure time or overlap with other Provider's time. Contact me if you need any clarification. Karl Candelario MD Please note: Portions of this note utilized [employer] software, please excuse any typographical or grammatical errors. Which inadvertently, might change the meaning and understanding. [facility] 09-22-2023 Evaluation + Plan note Associated Problem(s): Polysubstance use disorder Positive for benzos and MDMA Complete cessation will be advised [facility] 09-22-2023 History and physical note History and Physical Examination 09/21/2023 4:24 PM Chief Complaint Patient presents with Other Unresponsive. Snoring respirations and periods of apnea History of Present Illness: The patient is a 47-year-old male who presented to the emergency department for evaluation of acute delirium. Please note that the patient is currently sedated on mechanical ventilator within the ICU. All information was obtained from review of available records and discussion with the nursing staff. According to reports the patient was found by his son with an altered mental status. EMS was summoned and the patient was apparently combative and treated with Versed. The patient following this became lethargic, slightly obtunded. He was transferred to the emergency department where he was ultimately intubated due to combativeness and airway protection. Routine evaluation was completed. A CT scan of the head was nonacute. Laboratory studies were unremarkable. A drug screen was consistent with benzodiazepines as well as MDMA. The patient was found to be significantly hypertensive was started on a Cardene drip. He was admitted to the ICU for further evaluation and management. Overnight the patient's blood pressure did respond to the Cardene and he ultimately became slightly hypotensive with worsening combativeness. The patient's propofol was switched to Precedex. Since then the patient was resting comfortably throughout the evening. Chest x-ray obtained was nonacute. Hemodynamics have been stable. No past medical history on file. No past surgical history on file. Social History Tobacco Use Smoking status: Not on file Smokeless tobacco: Not on file Substance Use Topics Alcohol use: Not on file No family history on file. No medications prior to admission. Not on File Review of Systems: Unable to assess as patient is sedated in ICU on ventilator support PHYSICAL EXAM: Patient Vitals for the past 8 hrs: BP Temp Temp src Pulse Resp SpO2 Height Weight 09/22/23 0813 99/58 97.8 F (36.6 C) -- 67 20 -- -- -- 09/22/23 0800 99/58 -- -- 68 16 100 % -- -- 09/22/23 0720 -- 97.8 F (36.6 C) Temporal -- -- -- -- -- 09/22/23 0530 122/74 -- -- 83 -- 100 % -- -- 09/22/23 0520 126/77 -- -- 86 -- 100 % -- -- 09/22/23 0510 130/79 -- -- 90 -- 100 % -- -- 09/22/23 0500 133/80 -- -- 93 -- 100 % -- -- 09/22/23 0450 135/82 -- -- 97 -- 100 % -- -- 09/22/23 0440 137/82 97.5 F (36.4 C) Temporal 100 -- 100 % -- -- 09/22/230 -- -- -- 101 -- 100 % -- -- 09/22/23419 -- -- -- 102 -- -- -- -- 09/22/23418 145/77 -- -- 104 -- -- -- -- 09/22/23409 -- -- -- 124 -- 95 % -- -- 09/22/23399 (!) 237/101 -- -- 134 -- 100 % 1.829 m (6') 85.5 kg (188 lb 9.6 oz) 09/22/23 035 (!) 240/105 -- -- 144 -- (!) 85 % -- -- 09/22/236 -- -- -- -- -- 100 % -- -- 09/22/23339 (!) 248/112 -- -- 144 -- (!) 86 % -- -- 09/22/23 0330 -- -- -- 148 -- (!) 87 % -- -- 09/22/23 0320 (!) 187/116 -- -- 134 -- -- -- -- 09/22/23 0310 181/84 -- -- 105 -- 100 % -- -- 09/22/23 0300 (!) 237/118 -- -- 140 (!) 36 100 % -- -- 09/22/23 0250 129/74 -- -- 91 16 95 % -- -- 09/22/23 0240 105/63 -- -- 84 16 99 % -- -- 09/22/23 0230 102/64 -- -- 85 17 99 % -- -- 09/22/23 0220 94/53 -- -- 81 17 99 % -- -- General: In ICU, sedated on Ventilator HEENT: Normalcephalic, atraumatic. Pupils equal, round, reactive, to light and accomodation B/L. Ears normal, no erythema or drainage. Bilateral nares patent without obvious drainage. Oral mucosa moist, pink, intact without ulcers or lesions. Neck: No JVD, no thyromegaly, no anterior or posterior cervical lymphadenopathy. Cardiovascular: Regular rate and rhythm, without murmurs, rubs, or gallops. Respiratory: Bilateral Upper and Lower Lobes anterior and posteriorly without wheezes, rales, or rhonchi Gastrointestinal: Soft, rounded, non-tender. Bowel sounds present x4 quadrants. No rebound. No organomegaly or masses noted upon deep palpation. Musculoskeletal: No edema, clubbing or cyanosis, pulses palpable 2+ distally. Muscle strength and tone symmetrical. Skin: Warm, Dry, Intact. No obvious rashes or lesions noted. Neuro: Responds to noxious stimuli. Physiatric: Sedated on ventilator Diagnostics: Admission on 09/21/2023 Component Date Value pH Arterial 09/21/2023 7.42 pCO2 Arterial 09/21/2023 40 pO2 Arterial 09/21/2023 492 (H) HCO3 09/21/2023 25.9 Base Excess 09/21/2023 1.3 CTHB 09/21/2023 14.1 % O2 HGB 09/21/2023 98.7 O2 Saturation 09/21/2023 99.9 Carboxyhemoglobin 09/21/2023 0.6 MetHB Arterial 09/21/2023 0.5 WBC (WHITE BLOOD COUNT) 09/21/2023 10.8 RBC 09/21/2023 4.98 HEMOGLOBIN (HGB) 09/21/2023 14.5 HEMATOCRIT (HCT) 09/21/2023 42.6 MEAN CELL VOLUME 09/21/2023 85.6 Mean Cell HGB 09/21/2023 29.1 MEAN CELL HGB CONCENTRAT* 09/21/2023 34.0 RBC DISTRIBUTION 09/21/2023 14.3 PLATELET COUNT 09/21/2023 176 MEAN PLATELET VOLUME 09/21/2023 8.5 DIFFERENTIAL TYPE 09/21/2023 AUTO DIFF NEUTROPHILS 09/21/2023 91.0 (H) LYMPHOCYTE 09/21/2023 5.6 (L) MONOCYTE % 09/21/2023 3.0 EOSINOPHIL % 09/21/2023 0.2 BASOPHIL % 09/21/2023 0.2 Absolute Neutrophil Count 09/21/2023 9.8 (H) LYMPHOCYTES, ABSOLUTE 09/21/2023 0.6 (L) MONOCYTES, ABSOLUTE 09/21/2023 0.3 ABSOLUTE EOSINOPHIL COUNT 09/21/2023 0.0 ABSOLUTE BASOPHIL COUNT 09/21/2023 0.0 Glucose 09/21/2023 245 (H) BUN 09/21/2023 37 (H) CREATININE SERUM 09/21/2023 1.30 (H) SODIUM 09/21/2023 135 (L) POTASSIUM 09/21/2023 4.0 CHLORIDE 09/21/2023 103 CALCIUM 09/21/2023 9.0 PROTEIN, TOTAL 09/21/2023 7.3 Albumin 09/21/2023 4.4 BILIRUBIN, TOTAL 09/21/2023 0.6 AST 09/21/2023 39 ALKALINE PHOSPHATASE 09/21/2023 103 CARBON DIOXIDE (CO2) 09/21/2023 24 A/G Ratio 09/21/2023 1.5 ALT 09/21/2023 34 GFR COMMENT 09/21/2023 Unable to calculate GFR due to inappropriate age/gender/creatinine value. LACTATE 09/21/2023 2.1 (HH) ALCOHOL, ETHYL, SERUM 09/21/2023 <10 VENTILATOR MODE 09/21/2023 ACVC FIO2 09/21/2023 100 RESPIRATORY RATE 09/21/2023 16 TIDAL VOLUME 09/21/2023 500 PEEP/CPAP 09/21/2023 5 SCREEN: MRSA 09/21/2023 NEGATIVE STAPHYOCOCCUS AUREUS BY * 09/21/2023 POSITIVE (A) CANNABINOIDS (MARIJUANA) 09/21/2023 NEGATIVE Cocaine Metabolite 09/21/2023 NEGATIVE Methamphetamine 09/21/2023 NEGATIVE Opiates 09/21/2023 NEGATIVE Amphetamine 09/21/2023 NEGATIVE Benzodiazepines 09/21/2023 POSITIVE (A) TRICYCLIC ANTIDEPRESSANT* 09/21/2023 NEGATIVE Methadone 09/21/2023 NEGATIVE Barbiturate 09/21/2023 NEGATIVE Oxycodone 09/21/2023 NEGATIVE Buprenorphine 09/21/2023 NEGATIVE Fentanyl 09/21/2023 NEGATIVE MDMA 09/21/2023 POSITIVE (A) COLOR, URINE 09/21/2023 YELLOW APPEARANCE, URINE 09/21/2023 CLEAR Specific Platinum, Urine 09/21/2023 >1.030 (H) PH URINE 09/21/2023 5.5 Urine Protein 09/21/2023 >300 (A) GLUCOSE, URINE 09/21/2023 500 (A) KETONES, URINE 09/21/2023 15 (A) BILIRUBIN, URINE 09/21/2023 NEGATIVE BLOOD, URINE DIPSTICK 09/21/2023 MODERATE (A) NITRITES, URINE 09/21/2023 NEGATIVE UROBILINOGEN, URINE 09/21/2023 0.2 LEUKOCYTE ESTERASE, URINE 09/21/2023 NEGATIVE WBC, URINE 09/21/2023 NEGATIVE RBC, URINE 09/21/2023 1 TO 5 Epithelial Cells UA 09/21/2023 NONE Mucus 09/21/2023 NEGATIVE BACTERIA, URINE 09/21/2023 TRACE (A) CRYSTALS, URINE 09/21/2023 NONE CASTS, URINE 09/21/2023 NONE COMMENT, URINE 09/21/2023 REFLEX CULTURE PER ESTABLISHED CRITERIA. GLUCOSE, POINT OF CARE 09/21/2023 232 (H) [employer] Supervisor 09/21/[phone] MAGNESIUM 09/21/2023 2.0 GLUCOSE, POINT OF CARE 09/21/2023 158 (H) [employer] Supervisor 09/21/[phone] GLUCOSE, POINT OF CARE 09/22/2023 109 (H) [employer] Supervisor 09/22/[phone] GLUCOSE, POINT OF CARE 09/22/2023 95 [employer] Supervisor 09/22/[phone] WBC (WHITE BLOOD COUNT) 09/22/2023 11.0 RBC 09/22/2023 4.39 HEMOGLOBIN (HGB) 09/22/2023 12.7 (L) HEMATOCRIT (HCT) 09/22/2023 38.0 (L) MEAN CELL VOLUME 09/22/2023 86.7 Mean Cell HGB 09/22/2023 28.9 MEAN CELL HGB CONCENTRAT* 09/22/2023 33.4 RBC DISTRIBUTION 09/22/2023 14.1 PLATELET COUNT 09/22/2023 151 MEAN PLATELET VOLUME 09/22/2023 8.5 DIFFERENTIAL TYPE 09/22/2023 AUTO DIFF NEUTROPHILS 09/22/2023 77.7 (H) LYMPHOCYTE 09/22/2023 12.4 (L) MONOCYTE % 09/22/2023 9.1 EOSINOPHIL % 09/22/2023 0.5 BASOPHIL % 09/22/2023 0.3 Absolute Neutrophil Count 09/22/2023 8.5 (H) LYMPHOCYTES, ABSOLUTE 09/22/2023 1.4 MONOCYTES, ABSOLUTE 09/22/2023 1.0 (H) ABSOLUTE EOSINOPHIL COUNT 09/22/2023 0.1 ABSOLUTE BASOPHIL COUNT 09/22/2023 0.0 Glucose 09/22/2023 72 BUN 09/22/2023 35 (H) CREATININE SERUM 09/22/2023 1.40 (H) SODIUM 09/22/2023 138 POTASSIUM 09/22/2023 4.2 CHLORIDE 09/22/2023 109 (H) CALCIUM 09/22/2023 8.2 (L) PROTEIN, TOTAL 09/22/2023 6.0 (L) Albumin 09/22/2023 3.4 (L) BILIRUBIN, TOTAL 09/22/2023 0.4 AST 09/22/2023 35 ALKALINE PHOSPHATASE 09/22/2023 76 CARBON DIOXIDE (CO2) 09/22/2023 23 A/G Ratio 09/22/2023 1.3 ALT 09/22/2023 25 ESTIMATED GFR, NON AFRIC* 09/22/2023 57 ESTIMATED GFR, A* 09/22/2023 69 GFR COMMENT 09/22/2023 Average GFR for 40-49 years old = 99. GLUCOSE, POINT OF CARE 09/22/2023 80 Mill Platform Supervisor 09/22/[phone] MAGNESIUM 09/22/2023 2.0 Impression and Plan: Principal Problem: Acute respiratory failure Active Problems: Acute delirium Polysubstance use disorder Renal insufficiency Acute delirium Secondary to drug effects CT head non-acute Supportive care Acute respiratory failure Patient without hypoxia - Intubated due to combativeness Attempt wean/extubate today CXR non-acute 02 per protocol, IS Routine aerosols Polysubstance use disorder Positive for benzos and MDMA Complete cessation will be advised Renal insufficiency Baseline appears to be - 1.3 - 1.4 Stable Trend labs Monitor intake and outputs Code Status: Full Code GI/DVT Prophylaxis: Protonix/Lovenox Cecil Ivan, PARKER completing HPI for Dr. Candelario 16 minutes spent of RUSSIAN LANGUAGE PROFESSOR time including assessment, planning, and discussion with nursing staff and patient Please note Portions of this note utilized [employer] software, please excuse any typographical or grammatical errors Associated attestation - Karl Candelario MD - 09/22/2023 10:40 PM EST I have personally seen and examined José Luis Gorman. I have personally reviewed all available clinical data related to this encounter including, but not limited to, radiolgraphs and reports, laboratory data, and procedure reports. I have been involved in formulation of the assessment and plan. DOS: 09/22/2023 HPI: very active gonzalez per sons has intermittent episodes of confusion. Was found very confused and agitated so was given versed by EMT and had to be intubated to protect airway. Today morning did good with extubation protocol but when I saw him he was still very obtunded. Overnight had periods of severe agitation needing haldol, precedex and diprivan caused hypotension Drug screen + for Brian and MDMA ROS: Ten systems reviewed, unless limited by patient' or care providers' inability or unavailability. Reported above or following. Assessment and additional plans: Acute delirium and agitation, etiology r/o seizure and post ictal state. Poly drug use with Side effects CKD III Empiric keppra, EEG DM II hemtoproteinuria Time: my 40 minutes including overnight vent management and today. Bedside and on the floor, including communicating with EDMD and MARIAN time. Not including procedure time or overlap with other Provider's time. Contact me if you need any clarification. Karl Candelario MD Please note: Portions of this note utilized [employer] software, please excuse any typographical or grammatical errors. Which inadvertently, might change the meaning and understanding. documented in this encounter [facility] 09-22-2023 Evaluation + Plan note Associated Problem(s): Acute respiratory failure Patient without hypoxia - Intubated due to combativeness Attempt wean/extubate today CXR non-acute 02 per protocol, IS Routine aerosols [facility] 09-22-2023 Evaluation + Plan note Associated Problem(s): Acute delirium Secondary to drug effects CT head non-acute Supportive care [facility] 09-22-2023 Nurse Note Morning assessment completed, Patient at appropriate level of sedation. Resting comfortable in bed, eyes closed. Vitals stable. Patient's mother called in and update give. Morning Labs drawn. Jennifer Lopez RN [facility] [facility] Plan of care note Problem: Patient Care Overview Goal: Plan of Care Review Outcome: Progressing Toward Goal Goal: Individualization & Mutuality Outcome: Progressing Toward Goal Goal: Discharge Needs Assessment Outcome: Progressing Toward Goal Goal: Interdisciplinary Rounds/Family Conf Outcome: Progressing Toward Goal Problem: Ventilation, Mechanical Invasive (Adult) Goal: Signs and Symptoms of Listed Potential Problems Will be Absent, Minimized or Managed (Ventilation, Mechanical Invasive) Description: Signs and symptoms of listed potential problems will be absent, minimized or managed by discharge/transition of care (reference Ventilation, Mechanical Invasive (Adult) CPG). Outcome: Progressing Toward Goal Problem: Skin Integrity Impairment, Risk/Actual (Adult) Goal: Identify Related Risk Factors and Signs and Symptoms Description: Related risk factors and signs and symptoms are identified upon initiation of Human Response Clinical Practice Guideline (CPG) Outcome: Progressing Toward Goal Goal: Skin Integrity/Wound Healing Description: Patient will demonstrate the desired outcomes by discharge/transition of care. Outcome: Progressing Toward Goal Problem: Fall/Trauma/Injury Risk (Adult) Goal: Fall/Trauma/Injury Risk: Absence of Trauma/Injury/Falls Description: Patient will demonstrate the desired outcomes. Outcome: Progressing Toward Goal Goal: Knowledge of risk factors/behavior modification Description: Knowledge of risk factors/behavior modification for fall/injury prevention Outcome: Progressing Toward Goal Problem: Thought Process Alteration (Adult) Goal: Identify Related Risk Factors and Signs and Symptoms Description: Related risk factors and signs and symptoms are identified upon initiation of Human Response Clinical Practice Guideline (CPG) Outcome: Progressing Toward Goal Goal: Improved Thought Process Description: Patient will demonstrate the desired outcomes by discharge/transition of care. Outcome: Progressing Toward Goal [facility] 09[facility]23 Nurse Note Precedex drip running, working to turn propofol down to wean off and precedex up to help keep pt calm. [facility] 09-22-2023 Nurse Note Pt finally relaxing and less agitated, will continue to monitor. [facility] 09-22-2023 Nurse Note Staff x4 in room to help protect pt as he is restless and agitated, sit up in bed, Dr. Candelario notified to verify earlier order to change to precedex and discontinue propofol, states to proceed with this as stated earlier. [facility] [employer] [facility] 09-22-2023 Nurse Note Pt awakens suddenly and quickly becomes agitated, due to situation propofol increased to try to calm pt. [facility] [facility] 09-22-2023 Nurse Note Sedation titrated down due to low BP, pt then becomes very agitated and combative, BP increases, propofol titrated back up and pt calms, Dr. Candelario notified of this, orders received. [facility] [facility] 09-21-2023 Nurse Note Attempt to [address] OG without success, and then attempt NG also without success, pt becomes agitated during this, propofol adjusted. [facility] 09-21-2023 Emergency department Note Call to family to update on transferr to ICU. Call to Mom Sherrie Seferino @ [phone]. [facility] 09-21-2023 Emergency department Note Call to family to update on transferr to ICU. Call to Mom Sherrie Gentile @ [phone]. This RN speaks with loop and gives them patient name. Multiple attempts at OG/NG tube placement unsuccessful, Dr Beltran aware. Multiple attempts to place OG and NG tube by this RN, Deanna Jennings RN, and Martina OCONNELL. All attempts unsuccessful. Family is waiting room, Dr Beltran aware and states he will talk with family. Attempting to place OG tube. Patient is agitated and pulling arms and kicking legs. Dr Beltran aware. Verbal order to place vecuronium. Lab bedside Patient has abrasions to bilateral shins. Blood on patients jeans. EMERGENCY DEPARTMENT REPORT [facility] ICU SERVICE DATE: 09/21/23 PCP: Paulina Winters CHIEF COMPLAINT: Altered mental status HPI: José Luis Gorman is a 47 y.o. male who presents with complaint of altered mental status. Patient found to be altered by son. Patient noted to be combative with EMS providers. 7.5 mg Versed administered by EMS. Patient brought emergency department for further evaluation and treatment. REVIEW OF SYSTEMS: As documented in HPI. Unable to obtain. Patient unresponsive. PAST MEDICAL HISTORY: No past medical history on file. SURGICAL HISTORY: No past surgical history on file. CURRENT MEDICATIONS: There are no discharge medications for this patient. ALLERGIES: Not on File FAMILY HISTORY: No family history on file. SOCIAL HISTORY: Social History Socioeconomic History Marital status: Spouse name: Not on file Number of children: Not on file Years of education: Not on file Highest education level: Not on file Occupational History Not on file Tobacco Use Smoking status: Not on file Smokeless tobacco: Not on file Substance and Sexual Activity Alcohol use: Not on file Drug use: Not on file Sexual activity: Not on file Other Topics Concern Not on file Social History Narrative Not on file Social Determinants of Health Financial Resource Strain: Not on file Food Insecurity: Not on file Transportation Needs: Not on file Physical Activity: Not on file Stress: Not on file Social Connections: Not on file Intimate Partner Violence: Not on file Housing Stability: Not on file PHYSICAL EXAM: Constitutional: Patient unresponsive. HEENT: Normocephalic and atraumatic. No mucosal edema, rhinorrhea, or nasal deformity. Uvula is midline, no asymmetry or fullness. Mucous membranes are moist. No posterior oropharyngeal exudate or erythema. Eyes: Pupils are equal and round. No scleral icterus. Neck: Trachea midline. Cardiovascular: Regular rate and rhythm on the monitor. Pulmonary/Chest: Apneic episodes at time of presentation. Abdomen: Nondistended. Extremities: No lower extremity pitting edema. Neurological: [place] coma Scale: 3. VITAL SIGNS DURING ED VISIT: Patient Vitals for the past 24 hrs: BP Temp Temp src Pulse Resp SpO2 Weight 09/21/23 1953 113/64 97.2 F (36.2 C) Axillary 95 16 100 % -- 09/21/23 1840 162/88 -- -- 106 14 100 % -- 09/21/23 1830 (!) 181/100 -- -- 106 18 99 % -- 09/21/23 1820 (!) 179/105 -- -- 104 23 100 % -- 09/21/23 1810 (!) 185/95 -- -- 101 20 100 % -- 09/21/23 1800 157/89 -- -- 101 20 100 % -- 09/21/23 1750 (!) 172/101 -- -- 105 21 100 % -- 09/21/23 1741 133/75 -- -- 96 20 100 % -- 09/21/23 1730 135/73 -- -- 98 21 100 % -- 09/21/23 1725 153/81 -- -- 99 22 100 % -- 09/21/23 1720 149/87 -- -- 97 (!) 26 100 % -- 09/21/23 1700 -- -- -- -- -- 100 % -- 09/21/23 1650 (!) 240/117 -- -- 101 21 100 % -- 09/21/23 1640 (!) 256/126 -- -- 96 20 100 % 84.9 kg (187 lb 3.2 oz) 09/21/23 1636 -- -- -- -- -- 100 % -- 09/21/23 1631 (!) 269/130 -- -- 100 12 96 % -- 09/21/23 1630 (!) 289/149 -- -- 103 20 94 % -- 09/21/23 1625 (!) 227/100 -- -- 91 24 100 % -- ED COURSE & MEDICAL DECISION MAKING: Patient brought to the emergency department in an unresponsive state. Rapid sequence intubation performed. Patient started on propofol for sedation. Complete medical workup was obtained including CT imaging. Blood pressure noted to be as high as 289/149. Patient was placed on a Cardene drip for hypertensive emergency. Patient admitted to the ICU under the filing and polishing supervisor service for further evaluation and treatment. ORDERS/RESULTS: Orders Placed This Encounter PROCEDURE - INTUBATION BLOOD CULTURE, PERIPHERAL 1ST SITE BLOOD CULTURE, PERIPHERAL 2ND SITE MRSA NASAL SWABS TO BILATERAL NARES URINE CULTURE XR CHEST AP PORTABLE CT HEAD WITHOUT CONTRAST CT SPINE CERVICAL WITHOUT CONTRAST CBC, EDIF, PLATELET COMPREHENSIVE METABOLIC PANEL LACTATE, BLOOD ALCOHOL (ETHANOL),BLOOD TOXICOLOGY DRUG SCREEN, URINE TOXICOLOGY DRUG SCREEN, URINE CBC, EDIF, PLATELET COMPREHENSIVE METABOLIC PANEL MAGNESIUM TOXICOLOGY DRUG SCREEN, URINE MAGNESIUM A/C VOLUME CONTROL/PRVC Glucose (POC device) Glucose (POC device) Etomidate (AMIDATE) injection Vecuronium (NORCURON) injection niCARdipine in sodium chloride (CARDENE) 20 mg/200 mL premix IV infusion Propofol (DIPRIVAN) 1000 MG/100ML premix infusion midazolam (VERSED) injection 4 mg Vecuronium (NORCURON) injection 8.5 mg Sodium chloride 0.9% IV solution Midazolam HCl (PF) (VERSED) injection URINALYSIS, MACRO URINALYSIS URINALYSIS, MACRO URINE MICROSCOPIC Results for orders placed or performed during the hospital encounter of 09/21/23 CBC, EDIF, PLATELET Result Value Ref Range WBC (WHITE BLOOD COUNT) 10.8 3.6 - 11.0 10*3/uL RBC 4.98 4.0 - 6.1 10*6/uL HEMOGLOBIN (HGB) 14.5 14.0 - 18.0 G/DL HEMATOCRIT (HCT) 42.6 42.0 - 52.0 % MEAN CELL VOLUME 85.6 80.0 - 100.0 FL Mean Cell HGB 29.1 26.0 - 35.0 PG MEAN CELL HGB CONCENTRATION 34.0 27.0 - 37.0 G/DL RBC DISTRIBUTION 14.3 11.5 - 14.5 % PLATELET COUNT 176 130 - 400 10*3/uL MEAN PLATELET VOLUME 8.5 7.4 - 11.0 FL DIFFERENTIAL TYPE AUTO DIFF % NEUTROPHILS 91.0 (H) 37.0 - 75.0 % LYMPHOCYTE 5.6 (L) 20.0 - 55.0 % MONOCYTE % 3.0 0.0 - 10.0 % EOSINOPHIL % 0.2 0.0 - 11.0 % BASOPHIL % 0.2 0.0 - 2.0 % Absolute Neutrophil Count 9.8 (H) 1.4 - 6.5 10*3/uL LYMPHOCYTES, ABSOLUTE 0.6 (L) 1.2 - 3.4 10*3/uL MONOCYTES, ABSOLUTE 0.3 0.0 - 0.7 10*3/uL ABSOLUTE EOSINOPHIL COUNT 0.0 0.0 - 0.7 10*3/uL ABSOLUTE BASOPHIL COUNT 0.0 0.0 - 0.2 10*3/uL COMPREHENSIVE METABOLIC PANEL Result Value Ref Range Glucose 245 (H) 70 - 100 MG/DL BUN 37 (H) 7 - 20 MG/DL CREATININE SERUM 1.30 (H) 0.7 - 1.2 MG/DL SODIUM 135 (L) 137 - 145 MMOL/L POTASSIUM 4.0 3.5 - 5.1 MMOL/L CHLORIDE 103 98 - 107 MMOL/L CALCIUM 9.0 8.4 - 10.2 MG/DL PROTEIN, TOTAL 7.3 6.3 - 8.2 GM/DL Albumin 4.4 3.5 - 5.0 G/dl BILIRUBIN, TOTAL 0.6 0.2 - 1.3 MG/DL AST 39 17 - 59 IU/L ALKALINE PHOSPHATASE 103 38 - 126 IU/L CARBON DIOXIDE (CO2) 24 22 - 30 MMOL/L A/G Ratio 1.5 1.3 - 2.2 RATIO ALT 34 <50 IU/L GFR COMMENT Unable to calculate GFR due to inappropriate age/gender/creatinine value. LACTATE, BLOOD Result Value Ref Range LACTATE 2.1 (HH) 0.7 - 2.0 mmol/L ALCOHOL (ETHANOL),BLOOD Result Value Ref Range ALCOHOL, ETHYL, SERUM <10 0 - 10 MG/DL TOXICOLOGY DRUG SCREEN, URINE Result Value Ref Range CANNABINOIDS (MARIJUANA) NEGATIVE NEGATIVE NG/ML Cocaine Metabolite NEGATIVE NEGATIVE NG/ML Methamphetamine NEGATIVE NEGATIVE NG/ML Opiates NEGATIVE NEGATIVE NG/ML Amphetamine NEGATIVE NEGATIVE NG/ML Benzodiazepines POSITIVE (A) NEGATIVE NG/ML TRICYCLIC ANTIDEPRESSANTS SCREEN, URINE NEGATIVE NEGATIVE NG/ML Methadone NEGATIVE NEGATIVE NG/ML Barbiturate NEGATIVE NEGATIVE NG/ML Oxycodone NEGATIVE NEGATIVE NG/ML Buprenorphine NEGATIVE NEGATIVE NG/ML Fentanyl NEGATIVE NEGATIVE NG/ML MDMA POSITIVE (A) NEGATIVE NG/ML MAGNESIUM Result Value Ref Range MAGNESIUM 2.0 1.6 - 2.3 MG/DL GLUCOSE (POC DEVICE) Result Value Ref Range GLUCOSE, POINT OF CARE 232 (H) 70 - 100 MG/DL [employer] Super[employer] [phone] ARTERIAL BLOOD GAS Result Value Ref Range pH Arterial 7.42 7.350 - 7.450 pCO2 Arterial 40 35 - 45 mmHg pO2 Arterial 492 (H) 80 - 100 mmHg HCO3 25.9 22 - 26 mEq/L Base Excess 1.3 0 - 2 mEq/L CTHB 14.1 g/dl % O2 HGB 98.7 % O2 Saturation 99.9 95 - 100 % Carboxyhemoglobin 0.6 % MetHB Arterial 0.5 % VENTILATOR SETTINGS Result Value Ref Range VENTILATOR MODE ACVC FIO2 100 % RESPIRATORY RATE 16 breaths/minute TIDAL VOLUME 500 cc PEEP/CPAP 5 cmH2O URINALYSIS, MACRO Result Value Ref Range COLOR, URINE YELLOW YELLOW APPEARANCE, URINE CLEAR CLEAR Specific Platinum, Urine >1.030 (H) 1.010 - 1.025 PH URINE 5.5 5.0 - 7.0 Urine Protein >300 (A) NEGATIVE mg/dl GLUCOSE, URINE 500 (A) NEGATIVE mg/dl KETONES, URINE 15 (A) NEGATIVE mg/dl BILIRUBIN, URINE NEGATIVE NEGATIVE BLOOD, URINE DIPSTICK MODERATE (A) NEGATIVE NITRITES, URINE NEGATIVE NEGATIVE UROBILINOGEN, URINE 0.2 0.2 - 1.0 E.U./dL LEUKOCYTE ESTERASE, URINE NEGATIVE NEGATIVE URINE MICROSCOPIC Result Value Ref Range WBC, URINE NEGATIVE NEGATIVE /HPF RBC, URINE 1 TO 5 NEGATIVE /HPF Epithelial Cells UA NONE /HPF Mucus NEGATIVE NEGATIVE BACTERIA, URINE TRACE (A) NEGATIVE CRYSTALS, URINE NONE NONE CASTS, URINE NONE NONE /LPF COMMENT, URINE REFLEX CULTURE PER ESTABLISHED CRITERIA. IMAGING: CT HEAD WITHOUT CONTRAST Final Result IMPRESSION: No evidence of intracranial hemorrhage or other acute finding. XR CHEST AP PORTABLE Final Result IMPRESSION: Appropriate positioning of the endotracheal tube. No acute cardiopulmonary abnormality. CT SPINE CERVICAL WITHOUT CONTRAST (Results Pending) PROCEDURES: Rapid sequence intubation: Patient administered etomidate followed by vecuronium. The # 3 GlideScope blade was inserted into patient's oral cavity. A # 8 Endotracheal tube was placed on the 1st attempt. Confirmation was made via color graphic monitor and chest x-ray. Patient tolerated procedure well without immediate complication. CLINICAL IMPRESSION: 1. Altered mental status, unspecified altered mental status type 2. Hypertensive emergency DISPOSITION: Admitted to the ICU. Critical care time: 39 minutes excluding any other billable procedures. No follow-ups on file. There are no discharge medications for this patient. There are no discharge medications for this patient. An after visit summary was printed and given to the patient with the above information. Portions of this chart were created using [employer] electronic dictation. Please excuse any typographical or grammatical errors contained herein. Reginaldo Beltran MD 09/21/23 4871 BS 256. Pt EMS patient was found at home by son and was unresponsive. Pt became combative en route to ED and was placed in soft restraints and given 7.5 mg versed. Pt arrives to ED unresponsive. Dr Beltran and respiratory bedside, Pt unresponsive. Per EMS, patient was found home by son and was unresponsive. Per ems documented in this encounter [facility] 09-21-2023 Nurse Note On admission to [facility] ICU, from ED a dual RN initial assessment of skin condition was performed by Amna Irvin RN and Joseline Paez RN. Skin Assessment: Skin within defined limits:Yes Pt has some scabs and abrasions to bilateral shins. Derek Score: 12 LDA Added:No Amna Irvin RN [facility] 09-21-2023 Nurse Note Loop here as pt arrives to ICU, [facility] 09-21-2023 Emergency department Note This RN speaks with loop and gives them patient name. [facility] 09-21-2023 Emergency department Note Multiple attempts at OG/NG tube placement unsuccessful, Dr Beltran aware. [facility] 09-21-2023 Emergency department Note Multiple attempts to place OG and NG tube by vito RN, Deanna Jennings RN, and Martina OCONNELL. All attempts unsuccessful. Family is waiting room, Dr Beltran aware and states he will talk with family. [facility] 09-21-2023 Emergency department Note Attempting to place OG tube. Patient is agitated and pulling arms and kicking legs. Dr Beltran aware. Verbal order to place vecuronium. [facility] 09-21-2023 Emergency department Note Lab bedside [facility] 09-21-2023 Emergency department Note Patient has abrasions to bilateral shins. Blood on patients jeans. [facility] 09-21-2023 Progress note Formatting of t his note might be different from the original. Ventilator initiated at this time. Refer to flowsheets for settings and readings. [facility] 09-21-2023 Physician Emergency department Note EMERGENCY DEPARTMENT REPORT [facility] ICU SERVICE DATE: 09/21/23 PCP: Paulina Winters CHIEF COMPLAINT: Altered mental status HPI: José Luis Gorman is a 47 y.o. male who presents with complaint of altered mental status. Patient found to be altered by son. Patient noted to be combative with EMS providers. 7.5 mg Versed administered by EMS. Patient brought emergency department for further evaluation and treatment. REVIEW OF SYSTEMS: As documented in HPI. Unable to obtain. Patient unresponsive. PAST MEDICAL HISTORY: No past medical history on file. SURGICAL HISTORY: No past surgical history on file. CURRENT MEDICATIONS: There are no discharge medications for this patient. ALLERGIES: Not on File FAMILY HISTORY: No family history on file. SOCIAL HISTORY: Social History Socioeconomic History Marital status: Spouse name: Not on file Number of children: Not on file Years of education: Not on file Highest education level: Not on file Occupational History Not on file Tobacco Use Smoking status: Not on file Smokeless tobacco: Not on file Substance and Sexual Activity Alcohol use: Not on file Drug use: Not on file Sexual activity: Not on file Other Topics Concern Not on file Social History Narrative Not on file Social Determinants of Health Financial Resource Strain: Not on file Food Insecurity: Not on file Transportation Needs: Not on file Physical Activity: Not on file Stress: Not on file Social Connections: Not on file Intimate Partner Violence: Not on file Housing Stability: Not on file PHYSICAL EXAM: Constitutional: Patient unresponsive. HEENT: Normocephalic and atraumatic. No mucosal edema, rhinorrhea, or nasal deformity. Uvula is midline, no asymmetry or fullness. Mucous membranes are moist. No posterior oropharyngeal exudate or erythema. Eyes: Pupils are equal and round. No scleral icterus. Neck: Trachea midline. Cardiovascular: Regular rate and rhythm on the monitor. Pulmonary/Chest: Apneic episodes at time of presentation. Abdomen: Nondistended. Extremities: No lower extremity pitting edema. Neurological: [place] coma Scale: 3. VITAL SIGNS DURING ED VISIT: Patient Vitals for the past 24 hrs: BP Temp Temp src Pulse Resp SpO2 Weight 09/21/23 1953 113/64 97.2 F (36.2 C) Axillary 95 16 100 % -- 09/21/23 1840 162/88 -- -- 106 14 100 % -- 09/21/23 1830 (!) 181/100 -- -- 106 18 99 % -- 09/21/23 1820 (!) 179/105 -- -- 104 23 100 % -- 09/21/23 1810 (!) 185/95 -- -- 101 20 100 % -- 09/21/23 1800 157/89 -- -- 101 20 100 % -- 09/21/23 1750 (!) 172/101 -- -- 105 21 100 % -- 09/21/23 1741 133/75 -- -- 96 20 100 % -- 09/21/23 1730 135/73 -- -- 98 21 100 % -- 09/21/23 1725 153/81 -- -- 99 22 100 % -- 09/21/23 1720 149/87 -- -- 97 (!) 26 100 % -- 09/21/23 1700 -- -- -- -- -- 100 % -- 09/21/23 1650 (!) 240/117 -- -- 101 21 100 % -- 09/21/23 1640 (!) 256/126 -- -- 96 20 100 % 84.9 kg (187 lb 3.2 oz) 09/21/23 1636 -- -- -- -- -- 100 % -- 09/21/23 1631 (!) 269/130 -- -- 100 12 96 % -- 09/21/23 1630 (!) 289/149 -- -- 103 20 94 % -- 09/21/23 1625 (!) 227/100 -- -- 91 24 100 % -- ED COURSE & MEDICAL DECISION MAKING: Patient brought to the emergency department in an unresponsive state. Rapid sequence intubation performed. Patient started on propofol for sedation. Complete medical workup was obtained including CT imaging. Blood pressure noted to be as high as 289/149. Patient was placed on a Cardene drip for hypertensive emergency. Patient admitted to the ICU under the filing and polishing supervisor service for further evaluation and treatment. ORDERS/RESULTS: Orders Placed This Encounter PROCEDURE - INTUBATION BLOOD CULTURE, PERIPHERAL 1ST SITE BLOOD CULTURE, PERIPHERAL 2ND SITE MRSA NASAL SWABS TO BILATERAL NARES URINE CULTURE XR CHEST AP PORTABLE CT HEAD WITHOUT CONTRAST CT SPINE CERVICAL WITHOUT CONTRAST CBC, EDIF, PLATELET COMPREHENSIVE METABOLIC PANEL LACTATE, BLOOD ALCOHOL (ETHANOL),BLOOD TOXICOLOGY DRUG SCREEN, URINE TOXICOLOGY DRUG SCREEN, URINE CBC, EDIF, PLATELET COMPREHENSIVE METABOLIC PANEL MAGNESIUM TOXICOLOGY DRUG SCREEN, URINE MAGNESIUM A/C VOLUME CONTROL/PRVC Glucose (POC device) Glucose (POC device) Etomidate (AMIDATE) injection Vecuronium (NORCURON) injection niCARdipine in sodium chloride (CARDENE) 20 mg/200 mL premix IV infusion Propofol (DIPRIVAN) 1000 MG/100ML premix infusion midazolam (VERSED) injection 4 mg Vecuronium (NORCURON) injection 8.5 mg Sodium chloride 0.9% IV solution Midazolam HCl (PF) (VERSED) injection URINALYSIS, MACRO URINALYSIS URINALYSIS, MACRO URINE MICROSCOPIC Results for orders placed or performed during the hospital encounter of 09/21/23 CBC, EDIF, PLATELET Result Value Ref Range WBC (WHITE BLOOD COUNT) 10.8 3.6 - 11.0 10*3/uL RBC 4.98 4.0 - 6.1 10*6/uL HEMOGLOBIN (HGB) 14.5 14.0 - 18.0 G/DL HEMATOCRIT (HCT) 42.6 42.0 - 52.0 % MEAN CELL VOLUME 85.6 80.0 - 100.0 FL Mean Cell HGB 29.1 26.0 - 35.0 PG MEAN CELL HGB CONCENTRATION 34.0 27.0 - 37.0 G/DL RBC DISTRIBUTION 14.3 11.5 - 14.5 % PLATELET COUNT 176 130 - 400 10*3/uL MEAN PLATELET VOLUME 8.5 7.4 - 11.0 FL DIFFERENTIAL TYPE AUTO DIFF % NEUTROPHILS 91.0 (H) 37.0 - 75.0 % LYMPHOCYTE 5.6 (L) 20.0 - 55.0 % MONOCYTE % 3.0 0.0 - 10.0 % EOSINOPHIL % 0.2 0.0 - 11.0 % BASOPHIL % 0.2 0.0 - 2.0 % Absolute Neutrophil Count 9.8 (H) 1.4 - 6.5 10*3/uL LYMPHOCYTES, ABSOLUTE 0.6 (L) 1.2 - 3.4 10*3/uL MONOCYTES, ABSOLUTE 0.3 0.0 - 0.7 10*3/uL ABSOLUTE EOSINOPHIL COUNT 0.0 0.0 - 0.7 10*3/uL ABSOLUTE BASOPHIL COUNT 0.0 0.0 - 0.2 10*3/uL COMPREHENSIVE METABOLIC PANEL Result Value Ref Range Glucose 245 (H) 70 - 100 MG/DL BUN 37 (H) 7 - 20 MG/DL CREATININE SERUM 1.30 (H) 0.7 - 1.2 MG/DL SODIUM 135 (L) 137 - 145 MMOL/L POTASSIUM 4.0 3.5 - 5.1 MMOL/L CHLORIDE 103 98 - 107 MMOL/L CALCIUM 9.0 8.4 - 10.2 MG/DL PROTEIN, TOTAL 7.3 6.3 - 8.2 GM/DL Albumin 4.4 3.5 - 5.0 G/dl BILIRUBIN, TOTAL 0.6 0.2 - 1.3 MG/DL AST 39 17 - 59 IU/L ALKALINE PHOSPHATASE 103 38 - 126 IU/L CARBON DIOXIDE (CO2) 24 22 - 30 MMOL/L A/G Ratio 1.5 1.3 - 2.2 RATIO ALT 34 <50 IU/L GFR COMMENT Unable to calculate GFR due to inappropriate age/gender/creatinine value. LACTATE, BLOOD Result Value Ref Range LACTATE 2.1 (HH) 0.7 - 2.0 mmol/L ALCOHOL (ETHANOL),BLOOD Result Value Ref Range ALCOHOL, ETHYL, SERUM <10 0 - 10 MG/DL TOXICOLOGY DRUG SCREEN, URINE Result Value Ref Range CANNABINOIDS (MARIJUANA) NEGATIVE NEGATIVE NG/ML Cocaine Metabolite NEGATIVE NEGATIVE NG/ML Methamphetamine NEGATIVE NEGATIVE NG/ML Opiates NEGATIVE NEGATIVE NG/ML Amphetamine NEGATIVE NEGATIVE NG/ML Benzodiazepines POSITIVE (A) NEGATIVE NG/ML TRICYCLIC ANTIDEPRESSANTS SCREEN, URINE NEGATIVE NEGATIVE NG/ML Methadone NEGATIVE NEGATIVE NG/ML Barbiturate NEGATIVE NEGATIVE NG/ML Oxycodone NEGATIVE NEGATIVE NG/ML Buprenorphine NEGATIVE NEGATIVE NG/ML Fentanyl NEGATIVE NEGATIVE NG/ML MDMA POSITIVE (A) NEGATIVE NG/ML MAGNESIUM Result Value Ref Range MAGNESIUM 2.0 1.6 - 2.3 MG/DL GLUCOSE (POC DEVICE) Result Value Ref Range GLUCOSE, POINT OF CARE 232 (H) 70 - 100 MG/DL [employer] Supervisor [phone] ARTERIAL BLOOD GAS Result Value Ref Range pH Arterial 7.42 7.350 - 7.450 pCO2 Arterial 40 35 - 45 mmHg pO2 Arterial 492 (H) 80 - 100 mmHg HCO3 25.9 22 - 26 mEq/L Base Excess 1.3 0 - 2 mEq/L CTHB 14.1 g/dl % O2 HGB 98.7 % O2 Saturation 99.9 95 - 100 % Carboxyhemoglobin 0.6 % MetHB Arterial 0.5 % VENTILATOR SETTINGS Result Value Ref Range VENTILATOR MODE ACVC FIO2 100 % RESPIRATORY RATE 16 breaths/minute TIDAL VOLUME 500 cc PEEP/CPAP 5 cmH2O URINALYSIS, MACRO Result Value Ref Range COLOR, URINE YELLOW YELLOW APPEARANCE, URINE CLEAR CLEAR Specific Platinum, Urine >1.030 (H) 1.010 - 1.025 PH URINE 5.5 5.0 - 7.0 Urine Protein >300 (A) NEGATIVE mg/dl GLUCOSE, URINE 500 (A) NEGATIVE mg/dl KETONES, URINE 15 (A) NEGATIVE mg/dl BILIRUBIN, URINE NEGATIVE NEGATIVE BLOOD, URINE DIPSTICK MODERATE (A) NEGATIVE NITRITES, URINE NEGATIVE NEGATIVE UROBILINOGEN, URINE 0.2 0.2 - 1.0 E.U./dL LEUKOCYTE ESTERASE, URINE NEGATIVE NEGATIVE URINE MICROSCOPIC Result Value Ref Range WBC, URINE NEGATIVE NEGATIVE /HPF RBC, URINE 1 TO 5 NEGATIVE /HPF Epithelial Cells UA NONE /HPF Mucus NEGATIVE NEGATIVE BACTERIA, URINE TRACE (A) NEGATIVE CRYSTALS, URINE NONE NONE CASTS, URINE NONE NONE /LPF COMMENT, URINE REFLEX CULTURE PER ESTABLISHED CRITERIA. IMAGING: CT HEAD WITHOUT CONTRAST Final Result IMPRESSION: No evidence of intracranial hemorrhage or other acute finding. XR CHEST AP PORTABLE Final Result IMPRESSION: Appropriate positioning of the endotracheal tube. No acute cardiopulmonary abnormality. CT SPINE CERVICAL WITHOUT CONTRAST (Results Pending) PROCEDURES: Rapid sequence intubation: Patient administered etomidate followed by vecuronium. The # 3 GlideScope blade was inserted into patient's oral cavity. A # 8 Endotracheal tube was placed on the 1st attempt. Confirmation was made via color graphic monitor and chest x-ray. Patient tolerated procedure well without immediate complication. CLINICAL IMPRESSION: 1. Altered mental status, unspecified altered mental status type 2. Hypertensive emergency DISPOSITION: Admitted to the ICU. Critical care time: 39 minutes excluding any other billable procedures. No follow-ups on file. There are no discharge medications for this patient. There are no discharge medications for this patient. An after visit summary was printed and given to the patient with the above information. Portions of this chart were created using [employer] electronic dictation. Please excuse any typographical or grammatical errors contained herein. Reginaldo Beltran MD 09/21/[address]117 [facility] 09-21-2023 Progress note Formatting of t his note might be different from the original. Pt intubated with size 8.0 ETT 26@ teeth by Dr Beltran. Positive color change on EtCO2 with equal breath sounds noted. Vocal cords visualized via GlideScope. SpO2 100% while being bagged with 100% FiO2. [facility] 09-21-2023 Emergency department Note BS 256. [facility] 09-21-2023 Emergency department Note Pt EMS patient was found at home by son and was unresponsive. Pt became combative en route to ED and was placed in soft restraints and given 7.5 mg versed. Pt arrives to ED unresponsive. [facility] 09-21-[address] Beltran and respiratory bedside, [facility] [employer] [facility] 09-21-2023 Emergency department Note Pt unresponsive. Per EMS, patient was found home by son and was unresponsive. Per ems [facility] 04-19-2022 Hospital Discharg e instructions Lulú Bond DO - 04/20/2022 Start taking her blood pressure medication as prescribed. Please follow-up with your doctor in the next 2 to 3 days. The following attachments cannot be sent through Care Everywhere.HTN (Hypertension): Diuretics: General Info (Scottish)documented in this encounter [employer] Phone: Evaluation note Diagnosis Acute nonintractable headache, unspecified headache type- Primary Elevated blood pressure reading Elevated blood pressure reading without diagnosis of hypertension documented in this encounter [employer] Phone: evaluation note* Diagnosis Essential hypertension- Primary Unspecified essential hypertension Acute headache, unspecified headache type documented in this encounter [employer] Phone: evaluation note* Diagnosis Acute respiratory failure- Primary Altered mental status, unspecified altered mental status type Hypertensive emergency Unspecified essential hypertension Acute delirium Other alteration of consciousness Polysubstance use disorder Renal insufficiency Unspecified disorder of kidney and ureter Type 2 Diabetes (A1C > 6.49%) [facility] Instructions* Cheng Lira MD - 04/05/2022 CT imaging today shows no evidence of significant process within your brain. While this is reassuring, it is important you return to the ED if you have worsened pain, develop changes in strength or sensation, dizziness or vertigo, changes in vision, persistent vomiting or any other concerns. Your blood pressure was very elevated during this visit today. It is important that you discuss this with your primary care physician within the next 1 to 2 days. * Attachments The following attachments cannot be sent through Care Everywhere. * Blood Pressure: Elevated (Scottish) * Headache (Scottish) documented in this encounterBON ACE Portal Phone: reason for referral (narrative)* (Routine) Specialty Diagnoses / Procedures Referred By Contac t Referred To Contact [email or web address] RE[facility] LOC [address] [place] [address] Referral ID Status Reason Start Date Expiration Date Visits Re quested Visits Authorized * Unlisted Procedure Code (Routine) - New Request Specialty Diagnoses / Procedures Referred By Contac t Referred To Contact Procedures INPATIENT ADMISSION NOTIFICATION Karl Candelario MD [address] [place] [address] DOMENICA Rosa [id number] Referral ID Status Reason Start Date Expiration Date V isits Requested Visits Authorized [id number] New Request 09/21/2023 10/15/2024 1 1 * (Routine) Specialty Diagnoses / Procedures Referred By Contac t Referred To Contact [facility] [place] [facility] LOC [address] [place] [address] Referral ID Status Reason Start Date Expiration Date Visits Re quested Visits Authorized [facility] Summary Purpose Family History No Family History Records FoundNo Family History Records FoundNo Family History Records FoundNo Family History Records FoundNo Family History Records FoundNo Family History Records Found Advance Directives No Advanced Directives Records FoundLatest Code Status on File Code Status Date Activated Date Inactivated Comments Full Code 10/27/2021 3:33 PM 11/02/2021 6:24 PM Latest Code Status on File Code Status Date Activated Date Inactivated Comments Full Code 09/21/2023 6:46 PM Additional Source Comments (unrecognized sect ion and content) No Status Records FoundNo Status Records FoundNo Status Records FoundNo Status Records FoundNo Status Records FoundNo Status Records Found INFORMATION SOURCE (unrecogn ized section and content) DATE CREATED AUTHOR 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 Pt does have a history of neuropathy and HTN Reason Comments Other Unresponsive. Snorin g respirations and periods of apnea Specialty Diagnoses / Procedures Referred By Contac t Referred To Contact Diagnoses Acute respiratory failure Hypertensive emergency Altered mental status, unspecified altered mental status type Karl Candelario MD [address] [place] [address] [facility] Referral ID Status Reason Start Date Expiration Date Visits Re quested Visits Authorized [id number] 1 1 Scheduled Active and Recently Administ ered Medications (unrecognized section and content) Medication Order 04/03/2022 04/04/2022 04/05/2022 0.9 % sodium chloride bolus (COMPLETED) 1,000 mL (11.6 mL/kg), IntraVENous, at 1,000 mL/hr, Administer over 1 Hours, ONCE, On 04/04/22 at 2215, For 1 dose 2214 (New Bag - Provider: Josie Donovan RN)2353 (Stopped - Provider: Brenda Bell RN) acetaminophen (TYLENOL) tablet 1,000 mg (COMPLETED) 1,000 mg, Oral, ONCE, 1 dose, On 04/04/22 at 2300, Maximum dose of acetaminophen is 4000 mg from all sources in 24 hours. 2258 (Given - Provider: Orlando Bell RN) diphenhydrAMINE (BENADRYL) injection 25 mg (COMPLETED) 25 mg, IntraVENous, ONCE, 1 dose, On 04/04/22 at 2215 2215 (Given - Provider: Josie Donovan RN) ondansetron (ZOFRAN) injection 4 mg (COMPLETED) 4 mg, IntraVENous, ONCE, 1 dose, On 04/04/22 at 2215 2237 (Given - Provider: Orlando Bell RN) prochlorperazine (COMPAZINE) injection 10 mg (COMPLETED) 10 mg, IntraVENous, ONCE, 1 dose, On 04/04/22 at 2215 2215 (Given - Provider: Josie Donovan RN) Scheduled Medication Order 04/18/2022 04/19/2022 04/20/2022 acetaminophen (TYLENOL) tablet 650 mg (COMPLETED) 650 mg, Oral, ONCE, 1 dose, On Tue04/19/22 at 2230, Maximum dose of acetaminophen is 4000 mg from all sources in 24 hours. 2308 (Given - Provider: Nini Miles RN) hydroCHLOROthiazide (HYDRODIURIL) tablet 25 mg (COMPLETED) 25 mg, Oral, ONCE, 1 dose, On Tue04/19/22 at 2215 2307 (Given - Provider: Nini Miles RN) Scheduled Medication Order 09/22/2023 09/23/2023 09/24/2023 Acyclovir (ZOVIRAX) 800 mg in Sodium chloride 0.9%, with overfill 291 mL (total volume) IVPB (CANCELED) 800 mg (rounded from 808 mg = 10 mg/kg 80.8 kg Adjusted weight), Intravenous, Administer over 60 Minutes, EVERY 8 HOURS, First dose on Roz 09/22/23 at 1400, Until Discontinued, Do not refrigerate Extravasation Risk 1431 ($$New Bag$$ - Provider: Jennifer Lopez RN)2246 ($$New Bag$$ - Provider: Sujatha Walker RN) 0605 ($$New Bag$$ - Provider: Sujatha Walker RN)1419 (Stopped - Provider: Natalio Naranjo, RN) albumin human 25 % injection 25 g () 25 g, Intravenous, Administer over 60 Minutes, EVERY 1 HOUR, 2 doses, First dose on Roz 09/22/23 at 1100, Last dose on Roz 09/22/23 at 1200, At [facility], in emergencies, administer as rapidly as necessary to improve clinical conditions. Rate of infusion is based on dose: 12.5g given over 30min, 25g given over 60min, 50g given over 120min., Indications: Fluid Resuscitation 1214 ($$New Bag$$ - Provider: Jennifer Lopez RN)1346 (Canceled Entry - Provider: Jennifer Lopez RN)2127 (Stopped - Provider: Sujatha Walker RN) Atorvastatin (LIPITOR) tablet 10 mg 10 mg, Oral, DAILY AT BEDTIME, First dose on Roz 09/22/23 at 2100, Until Discontinued 2127 (Not Given - Provider: Sujatha Walker RN - Reason: NPO) 2117 (Given - Provider: Toan Calvin RN) 2099 (Canceled Entry - Provider: System Discharge - Comment: Automatically canceled at discontinue of medication order) cefTRIAXone (ROCEPHIN) 1 g in sodium chloride 0.9% (MB PLUS) 50 mL (total volume) IVPB (CANCELED) 1 g, Intravenous, Administer over 30 Minutes, EVERY 24 HOURS, First dose on Roz 09/22/23 at 1500, Until Discontinued 2208 ($$New Bag$$ - Provider: Sujatha Walker RN) 141 (Stopped - Provider: Natalio Naranjo, RN) Dextrose 10% IV solution 250 mL(Linked Group 1) 250 mL, Intravenous, at 999 mL/hr, SEE ADMIN INSTRUCTIONS, Starting on Roz 09/22/23 at 1259, Until 09/24/23 at 2159, Give Dextrose 10% 250 mL IV x 1 at a rate of 999 mL/hr for blood glucose LESS THAN 20 mg/dL or any blood glucose LESS THAN 70 mg/dL and patient has an altered level of consciousness, unable to swallow, or NPO. Notify physician and repeat blood glucose in 20 minutes. May repeat x 1 if repeat blood glucose less than 60 mg/dL Enoxaparin Sodium (LOVENOX) injection 40 mg 40 mg, Subcutaneous, DAILY, First dose on Roz 09/22/23 at 1000, Until Discontinued, Indications: DVT/PE prophylaxis 1431 (Given - Provider: Jennifer Lopez RN) 0847 (Given - Provider: Natalio Naranjo RN) 0940 (Given - Provider: Eveline Elias LPN) glucose chewable tablet CHEW 16-32 g(Linked Group 1) 16-32 g (4-8 tablet), Oral, SEE ADMIN INSTRUCTIONS, Starting on Roz 09/22/23 at 1259, Until 09/24/23 at 2159, If patient is alert and able to tolerate oral medications and blood glucose 69 - 50 mg/dL: give 4 chew tabs, if blood glucose 49 - 20 mg/dL: give 8 chew tabs. Notify physician and repeat blood glucose in 20 minutes. May repeat treatment x 1 if blood glucose less than 60 mg/dL. For alternative treatment options (juice, etc.) refer to the hypoglycemia management protocol on [facility]: V-NR-Ifglvoookbgy Management Protocol Haloperidol lactate (HALDOL) injection 5 mg (COMPLETED) 5 mg, Intravenous, ONCE, 1 dose, On Roz 09/22/23 at 0200 0201 (Given - Provider: Amna Irvin RN) Insulin regular (HUMULIN R;NOVOLIN R) injection(Linked Group 1) Subcutaneous, EVERY 6 HOURS, First dose on Roz 09/22/23 at 1300, Until Discontinued, Sliding Scale parameters: Blood glucose under 70 = call physician; 151 - 200 = 2 units; 201 - 250 = 4 units; 251 - 300 = 6 units; 301 - 350 = 8 units; 351 - 400 = 10 units; Over 400 = call physician. 1407 (Not Given - Provider: Jennifer Lopez RN - Reason: Order Parameters not met)1711 (Not Given - Provider: Jennifer Lopez RN - Reason: Other) 0031 (Not Given - Provider: Sujatha Walker RN - Reason: Order Parameters not met)0609 (Not Given - Provider: Sujatha aWlker RN - Reason: Order Parameters not met)1206 (Not Given - Provider: Natalio Naranjo RN - Reason: Order Parameters not met)1603 (Not Given - Provider: Natalio Naranjo RN - Reason: Order Parameters not met - Comment: was 149 and patient just ate 30 mins before taking)2258 (Not Given - Provider: Toan Calvin RN - Reason: Order Parameters not met) 0941 (Given - Provider: Eveline Elias LPN)1223 (Not Given - Provider: Eveline Elias LPN - Reason: Order Parameters not met)1900 (Given - Provider: Eveline Elias LPN) levETIRAcetam (KEPPRA) tablet 500 mg 500 mg, Oral, EVERY 12 HOURS, First dose on Tue09/23/23 at 2100, Until Discontinued 2117 (Given - Provider: Toan Calvin RN) 0941 (Given - Provider: Eveline Elias LPN)2100 (Canceled Entry - Provider: System Discharge - Comment: Automatically canceled at discontinue of medication order) Lisinopril (PRINIVIL) tablet 10 mg 10 mg, Oral, EVERY 12 HOURS, First dose on Tue09/23/23 at 1130, Until Discontinued 1219 (Given - Provider: Natalio Naranjo RN)2118 (Given - Provider: Toan Calvin RN) 0941 (Given - Provider: Eveline Elias LPN)2100 (Canceled Entry - Provider: System Discharge - Comment: Automatically canceled at discontinue of medication order) Pantoprazole (PROTONIX) injection 40 mg (CANCELED) 40 mg, Intravenous, DAILY, First dose on Tue09/23/23 at 0900, Until Discontinued, Dilute each 40 mg vial with 10 mL of NS. All bolus doses, whether 40 mg or 80 mg, should be administered over at least two minutes., Indications: Inpt Stress Ulcer Prophylaxis 0847 (Given - Provider: Natalio Naranjo RN) Pantoprazole (PROTONIX) tablet DR 40 mg 40 mg, Oral, DAILY, First dose on Tue09/23/23 at 0945, Until Discontinued, Swallow whole; do not crush or chew., Indications: Inpt Stress Ulcer Prophylaxis 0922 (Not Given - Provider: Natalio Naranjo RN - Reason: Other - Comment: iv given this morning see dec) 0940 (Given - Provider: Eveline Elias, [employer]) QUEtiapine (SEROquel) tablet 100 mg 100 mg, Oral, DAILY AT BEDTIME, First dose on Tue09/23/23 at 2100, Until Discontinued 2117 (Given - Provider: Toan Calvin RN) 2099 (Canceled Entry - Provider: System Discharge - Comment: Automatically canceled at discontinue of medication order) Sodium chloride 0.9% IV solution 1,000 mL (COMPLETED) 1,000 mL, Intravenous, ONCE, 1 dose, On Roz 09/22/23 at 1130 1058 ($$New Bag$$ - Provider: Jennifer Lopez, RN)1200 (Stopped - Provider: Jennifer Lopez RN) Continuous Medication Order 09/22/2023 09/23/2023 09/24/2023 dexmedeTOMIDine in sodium chloride 0.9% (PRECEDEX) 400 mcg/100 mL premix IV infusion (CANCELED) 0-1.5 mcg/kg/hr 85.5 kg Dosing weight (0-32.0625 mL/hr, rounded to 0-32.1 mL/hr), Intravenous, CONTINUOUS, Starting on Roz 09/22/23 at 0345, Until Tue09/23/23 at 0823, Initiate infusion at 0.2 mcg/kg/hr. Assess analgesic need prior to sedation and wait at least 30 minutes between rate increases. Increase by 0.1-0.2 mcg/kg/hr to maintain RASS goal -1 to +1. Notify prescriber if unable to achieve RASS goal while maximum infusion rate of 1.5 mcg/kg/hr, HR less than 50 bpm or HR decrease by greater than 30% below baseline, or MAP less than 60. If restarting infusion after spontaneous awakening trial, restart at 50% of previous infusion rate and titrate per existing admin instructions. 0335 ($$New Bag$$ - Provider: Amna Irvin, RN)0400 (Rate/Dose Change - Provider: Amna Irvin RN)0432 (Rate/Dose Change - Provider: Amna Irvin RN)0500 (Rate/Dose Change - Provider: Amna Irvin, RN)0530 (Rate/Dose Change - Provider: Amna Irvin, RN)0600 (Rate/Dose Verify - Provider: Amna Irvin RN)0943 (Rate/Dose Change - Provider: Jennifer Lopez RN)1015 (Paused - Provider: Jennifer Lopez RN)1228 ($$New Bag$$ - Provider: Jennifer Lopez RN)1330 (Stopped - Provider: Jennifer Lopez RN) 0848 (Stopped - Provider: Natalio Naranjo, KOURTNEY) Dextrose 5% and sodium chloride 0.9% IV solution Intravenous, at 125 mL/hr, CONTINUOUS, Starting on Roz 09/22/23 at 1115, Until 09/24/23 at 2159 1139 ($$New Bag$$ - Provider: Jennifer Lopez RN)2255 ($$New Bag$$ - Provider: Sujatha Walker RN) 0847 ($$New Bag$$ - Provider: Natalio Naranjo, RN) 1629 (Stopped - Provider: Eveline Elias LPN) Propofol (DIPRIVAN) 1000 MG/100ML premix infusion (CANCELED) 0-50 mcg/kg/min 84.9 kg Dosing weight (0-25.47 mL/hr, rounded to 0-25.5 mL/hr), Intravenous, CONTINUOUS, Starting on 09/21/23 at 1715, Until Roz 09/22/23 at 0340, Assess analgesic needs and treat pain first prior to sedation titration. RASS goal -1 to +1. Initiate infusion at 10 mcg/kg/min and titrate up by 5 mcg/kg/min no more frequently than every 5 minutes to maintain RASS goal. If RASS below goal, titrate down by 5 mcg/kg/min every 5 minutes to the lowest rate needed to achieve target RASS goal. Do not administer by bolus dosing. Notify prescriber for inability to achieve RASS goal at maximum dose of ordered range or if at RASS goal but not meeting other clinical parameters. If RASS below goal for two consecutive assessments, contact the prescriber for revised titration parameters or a sedation holiday. Extravasation Risk 0020 (Rate/Dose Change - Provider: Amna Irvin RN - Comment: decreased BP)0025 (Rate/Dose Change - Provider: Amna Irvin RN)0030 (Rate/Dose Change - Provider: Amna Irvin RN)0040 (Rate/Dose Change - Provider: Amna Irvin RN)0105 (Rate/Dose Change - Provider: Amna Albaro, RN)0110 (Rate/Dose Change - Provider: Amna Irvin, RN)0115 (Rate/Dose Change - Provider: Amna Irvin, RN)0125 (Rate/Dose Change - Provider: Amna Irvin, RN)0140 (Rate/Dose Change - Provider: Amna Irvin, RN)0145 (Rate/Dose Change - Provider: Amna Irvin, RN)0150 (Rate/Dose Change - Provider: Amna Irvin, RN)0155 (Rate/Dose Change - Provider: Amna Irvin, RN)0245 (Rate/Dose Change - Provider: Amna Irvin, RN)0250 (Rate/Dose Change - Provider: Amna Irvin, RN)0255 (Rate/Dose Change - Provider: Amna Irvin, RN)0259 (Rate/Dose Change - Provider: Amna Irvin, RN)0300 ($$New Bag$$ - Provider: Amna Irvin RN)0305 (Rate/Dose Change - Provider: Amna Irvin, RN)0310 (Rate/Dose Change - Provider: Amna Irvin, RN)0315 (Rate/Dose Change - Provider: Amna Irvin, RN)0515 (Rate/Dose Change - Provider: Amna Irvin, RN)0525 (Rate/Dose Change - Provider: Amna Irvin, RN)0530 (Rate/Dose Change - Provider: Amna Irvin, RN)0535 (Rate/Dose Change - Provider: Amna Irvin, RN)0540 (Rate/Dose Change - Provider: Amna Irvin, RN)0550 (Rate/Dose Change - Provider: Amna Irvin, RN)0600 (Rate/Dose Change - Provider: Amna Irvin, RN)0615 (Rate/Dose Change - Provider: Amna Irvin, RN)0630 (Stopped - Provider: Amna Irvin, RN) Sodium chloride 0.9% IV solution () Intravenous, at 125 mL/hr, CONTINUOUS, Starting on Tue09/21/23 at 1845, Until Roz 09/22/23 at 0644 0437 (Rate/Dose Verify - Provider: Amna Irvin, KOURTNEY)2128 (Stopped - Provider: Sujatha Walker, KOURTNEY) Sodium chloride 0.9% IV solution (CANCELED) Intravenous, at 100 mL/hr, CONTINUOUS, Starting on Tue09/22/23 at 1000, Until Roz 09/22/23 at 1101 1054 (Rate/Dose Change - Provider: Jennifer Lopez RN)2127 (Stopped - Provider: Sujatha Walker, RN) PRN Medication Order 09/22/2023 09/23/2023 09/24/2023 Acetaminophen (TYLENOL) tablet 650 mg 650 mg, Oral, EVERY 4 HOURS NEEDED, Starting on Tue09/23/23 at 1123, Until 09/24/23 at 2159, Mild Pain, Oral temp > 100.4 F hydrALAZINE (APRESOLINE) injection 20 mg 20 mg, Intravenous, EVERY 4 HOURS NEEDED, Starting on Tue09/23/23 at 1123, Until 09/24/23 at 2159, SBP > 140 2119 (Given - Provider: Toan Calvin RN) 1745 (Given - Provider: Brenda Rankin, KOURTNEY) Ipratropium-albuterol (DUONEB) 0.5-2.5 (3) MG/3ML nebulizer solution 3 mL 3 mL, Nebulization, EVERY 4 HOURS NEEDED, Starting on Tue09/23/23 at 1153, Until 09/24/23 at 2159, Shortness of Breath Labetalol (NORMODYNE) injection 20 mg 20 mg, Intravenous, EVERY 6 HOURS NEEDED, Starting on Tue09/23/23 at 1123, Until 09/24/23 at 2159, SBP > 160 mmHg with HR >60 bpm 1220 (Given - Provider: Natalio Naranjo RN) 1645 (Given - Provider: Brenda Rankin, KOURTNEY) Ondansetron 4mg/2ml (ZOFRAN) injection 4 mg 4 mg, Intravenous, EVERY 4 HOURS NEEDED, Starting on Tue09/23/23 at 1123, Until 09/24/23 at 2159, Nausea / Vomiting Linked Groups Order Group 1: Insulin regular (HUMULIN R;NOVOLIN R) injectionJump to med Subcutaneous, EVERY 6 HOURS, First dose on Tue09/22/23 at 1300, Until Discontinued
Sliding Scale parameters: Blood glucose under 70 = call physician; 151 - 200 = 2 units; 201 - 250 = 4 units; 251 - 300 = 6 units; 301 - 350 = 8 units; 351 - 400 = 10 units; Over 400 = call physician.
And Glucose (POC device) (CANCELED) Routine, 4 TIMES DAILY BEFORE MEALS & AT BEDTIME, First occurrence on Roz 09/22/23 at 1530, Until Specified And Glucose (POC device) (CANCELED) Routine, ONE TIME, On Roz 09/22/23 at 1300, For 1 occurrence
For all Blood Glucose LESS THAN 70 mg/dL, recheck 20 min after treatment then notify physician. And glucose chewable tablet CHEW 16-32 gJump to med 16-32 g (4-8 tablet), Oral, SEE ADMIN INSTRUCTIONS, Starting on Roz 09/22/23 at 1259, Until 09/24/23 at 215
If patient is alert and able to tolerate oral medications and blood glucose 69 - 50 mg/dL: give 4 chew tabs, if blood glucose 49 - 20 mg/dL: give 8 chew tabs. Notify physician and repeat blood glucose in 20 minutes. May repeat treatment x 1 if blood glucose less than 60 mg/dL. For alternative treatment options (juice, etc.) refer to the hypoglycemia [facility] protocol [facility]: [facility] Management Protocol
And Dextrose 10% IV solution 250 mLJump to med 250 mL, Intravenous, at 999 mL/hr, SEE ADMIN INSTRUCTIONS, Starting on Roz 09/22/23 at 1259, Until 09/24/23 at 215
Give Dextrose 10% 250 mL IV x 1 at a rate of 999 mL/hr for blood glucose LESS THAN 20 mg/dL or any blood glucose LESS THAN 70 mg/dL and patient has an altered level of consciousness, unable to swallow, or NPO. Notify physician and repeat blood glucose in 20 minutes. May repeat x 1 if repeat blood glucose less than 60 mg/dL
And NOTIFY PHYSICIAN, Blood Glucose LESS THAN 70 mg/dl or greater than 400 mg/dl (CANCELED) Routine, CONTINUOUS, Starting on Roz 09/22/23 at 1300, Until Specified
Who to Notify: PASSENGER AGENT/Physician
For all Blood Glucose LESS THAN 70 mg/dl, or greater than 400 mg/dl notify PASSENGER AGENT/Physician Care Teams (unrecognized sec tion and content) Manager Utilization Relationship Specialty Start Date End Date Paulina Winters MD [address] [place] [address] PCP - General Family Medicine 10/27/21 Manager Utilization Relationship Specialty Start Date End Date Paulina Winters MD [address], [place] [id number] [phone] PCP - General Family Medicine 10/27/21 Manager Utilization Relationship Specialty Start Date End Date Paulina Winters MD [address] [place], [place] [id number] [phone] PCP - General Family Medicine 09/21/23 Ordered Prescriptions (unrec ognized section and content) Prescription Sig Dispensed Refills Start Date End Da te hydroCHLOROthiazide (HYDRODIURIL) 25 MG tablet Take 1 tablet by mouth every morning for 14 days 14 tablet 0 04/20/2022 05/04/2022 FOR RECORDS PERTAINING TO PATIENTS WHO ARE OR HAVE BEEN ENROLLED IN A CHEMICAL DEPENDENCY/SUBSTANCEABUSE PROGRAM, SOME INFORMATION MAY BE OMITTED. This clinical summary was aggregated from multiple sources. Caution should be exercised in using it in the provision of clinical care. This summary normalizes information from multiple sources, and as a consequence, information in this document may materially change the coding, format and clinical context of patient data. In addition, data may be omitted in some cases. CLINICAL DECISIONS SHOULD BE BASED ON THE PRIMARY CLINICAL RECORDS. [employer] provides no warranty or guarantee of the accuracy or completeness of information in this document.
--- NOTE | 2023-10-18 10:09 | CM.DCFOLLOWU ---
First attempt at discharge follow up call today, no answer. Unable to reach patient at this time.
--- NOTE | 2023-10-19 15:25 | CM.DCFOLLOWU ---
Person spoke with: Ortiz How are you feeling? Much better How is your pain? No pain Did you understand your discharge instructions? Yes Do you have any questions about your discharge instructions? No Were you given any prescriptions at discharge? Yes Were you able to get your prescriptions filled? Yes Do you understand how to take your medications as ordered? Yes Do you have any questions about your follow up appointment and do you plan to keep your follow up appointment? I will have to schedule for next week Is there anything else that you would like to discuss? No Questions/Comments/Concerns/Other:
== END 2023-10-16 13:22 | disposition home or self-care (01) ==
LOC: ER 10-16 03:22 → ICU 10-16 10:20
PROVIDERS: Internal Medicine; Admitting Provider Family Medicine; Emergency Provider Emergency Medicine; PCP Family Medicine; Visit Provider Family Medicine
DX: I16.0 Hypertensive urgency (principal); E11.65 Type 2 diabetes mellitus with hyperglycemia; R05.9 Cough, unspecified; Z91.148 Patient's other noncompliance with medication regimen for other reason; E78.5 Hyperlipidemia, unspecified; Z79.899 Other long term (current) drug therapy; Z79.4 Long term (current) use of insulin; F17.220 Nicotine dependence, chewing tobacco, uncomplicated
CPT/HCPCS: 36415; 70450; 71045; 80048; 80061; 80076; 80307; 80320; 81001; 83735; 84100; 84484; 85025; 93005; 96374; 96375; 96376; 99285; G0378; Q3014

== ENCOUNTER 2024-03-21 12:21 | Outpatient (OUT) | payer OTHER, SELFPAY ==
--- NOTE | 2024-03-21 12:24 | MR_ITS ---
The [address] [address] Patient Name: JOSÉ LUIS GORMAN MRN: [facility]:[id number] date: 1975 Sex: M Assigned Patient Location: MRI Current Patient Location: Accession/Order Number: [id number] Exam Date: 03/21/2024 12:35 Report Date: 03/22/2024 06:31 At the request of: PAULINA WINTERS Procedure: MR head/brain wo/w con EXAMINATION: MR head/brain wo/w con HISTORY: Cerebral vascular accident I63.9 COMPARISON: CT head without contrast 10/15/2023, MRI brain 09/22/2023 TECHNIQUE: A variety of imaging planes and parameters were utilized for visualization of suspected pathology. Images were performed without and with Dotarem contrast. FINDINGS: CEREBRUM: Thin bands of increased T1 signal involving areas of cortex of the posterior superior aspect of the right parietal lobe and right occipital lobe with no corresponding T2, FLAIR, T2*signal abnormality. No hemorrhage, mass, or inappropriate atrophy. CEREBELLUM: No edema, hemorrhage, mass, acute infarction, or inappropriate atrophy. BRAINSTEM: No edema, hemorrhage, mass, acute infarction, or inappropriate atrophy. CSF SPACES: Ventricles, cisterns, and sulci are appropriate for age. No hydrocephalus, subarachnoid hemorrhage, or mass. SKULL: No mass or other significant visible lesion. SINUSES: Limited views demonstrate no significant mucosal thickening or fluid. ORBITS: Limited views are unremarkable. OTHER: No abnormal meningeal or parenchymal enhancement. MR/MR head/brain wo/w con IMPRESSION: 1. 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 Hemorrhagic necrosis of the cortex is also considered, but no corresponding abnormal T2*signal. No appreciable encephalomalacic changes. No increased T2 signal to suggest an acute inflammatory or infectious process. Consider follow-up MRI brain in 2 months to document stability. Electronically authenticated by: MARIA C VARGAS Date: 03/22/2024 06:31
== END 2024-03-21 12:22 | disposition home or self-care (01) ==
LOC: MRI 12:21
PROVIDERS: PCP Family Medicine; Visit Provider Family Medicine
DX: I63.9 Cerebral infarction, unspecified (principal)
CPT/HCPCS: 70553; A9575

== ENCOUNTER 2024-06-08 09:46 | Outpatient (OUT) | payer OTHER, SELFPAY ==
--- OUTSIDE RECORDS SUMMARY | 2024-06-08 10:06 | XMS_ITS | CCD ---
Author Organization [facility]iniSymo Care Team Providers Care Postdoctoral Scientist Name Role Phone Paulina Winters MD Primary Care Provider [phone] SINGH ., DR GALLARDO Attending Unavailable HOY ., [...] Consulting Unavailable MELISSA ., EVI Consulting Unavailable ALICIA, JACOB Consulting Unavailable KATELIN IGNACIO Consulting Unavailable HOY ., DR GALLARDO Primary Care Unavailable PAY ., DR MANRIQUEZ Consulting Unavailable PAY ., DR MANRIQUEZ Attending Unavailable PAY ., DR MANRIQUEZ Admitting Unavailable HOY ., DR GALLARDO Consulting Unavailable HOY ., DR GALLARDO Attending Unavailable HOY ., DR GALLARDO Admitting Unavailable HOY ., DR GALLARDO Primary Care Unavailable ODUM, DR RAMIRO Cramer Consulting Unavailable HOY ., DR GALLARDO Attending Unavailable HOY ., DR GALLARDO Primary Care Unavailable HOY ., DR GALLARDO Consulting Unavailable HOY ., DR GALLARDO Admitting Unavailable SINGH ., DR GALLARDO Attending Unavailable SINGH ., DR GALLARDO Primary Care Unavailable SINGH ., DR GALLARDO Admitting Unavailable SINGH ., DR GALLARDO Consulting Unavailable JACQUELINE PACHECO Procedure Practitioner Unava ilable SANG, BONNER H Attending Unavailable SINGH ., DR GALLARDO Primary Care Unavailable SANG, BONNER H Admitting Unavailable RADHA, DR FITZGERALD Consulting Unavailable JACQUELINE PACHECO Consulting Unavailable SANG, BONNER H Consulting Unavailable DIANE, DAMIAN Consulting Unavailable JAILENE ., EVELINE FITZGERALD Consulting Unavailable SISTER, JUSTIN Consulting Unavailable GEMBUS, LUDMILA Consulting Unavailable SINGH ., DR GALLARDO Attending Unavailable SINGH ., DR GALLARDO Primary Care Unavailable SINGH Smart, DR GALLARDO Admitting Unavailable Stefan FRIAS, Jarod Orantes Attending UnavailPaulina Hemphill MD Primary Care Unavaildex FRIAS, Jarod Orantes Attending UnavailPaulina Hemphill MD Primary Care Unavaila wesly FRIAS, Jarod Orantes Attending UnavailPaulina Hemphill MD Primary Care UnavailPaulina Erickson MD Primary Care Provider [phone] PAULINA WINTERS Referring Unavailable PAULINA WINTERS Primary Care Unavailable Paulina Winters MD Primary Care Provider [phone] STEVE ESTRADA Attending Unavailable PAULINA WINTERS Primary Care Unavailable Paulina Winters MD Primary Care Provider [phone] STEVE ESTRADA Referring Unavailable AVASTHI, CHARLOTTE Admitting Unavailable AVASTHI, CHARLOTTE Attending Unavailable PAULINA WINTERS Primary Care Unavailable SULTAN-QURRAIE, ALI Consulting Unavailable CHIRRI, ADDY Consulting Unavailable TIARRA NOBLESE T Consulting Unavailable JEFERSON TANNABEEL W Consulting Unavaila Paulina Guerrero Primary Care Physician CONSULT, NEUROLOGY Consulting Unavailable KARL CANDELARIO Attending UnavailKARL Turk Admitting UnavailPAULINA Barnes Primary Care Unavailable Felix LUKE Attending Unavailable Paulina Winters Referring Unavailable Allergies Allergy Classification Reported Allergen(s) Allergy Type Date of Onset Reaction(s) Facility (2 sources) No Known Medication Allergies; Translations: [No Known Medication Allergies] Propensity to adverse reactions to drug (disorder) [facility] Repository Medications Current Medications Medication Drug Class(es) Dates Sig (Normalized) Sig (Original) carvedilol 12.5 mg oral tablet (4 sources) alpha-Adrenergic Arlene, beta-Adrenergic Arlene Start: 02-22-2024 take 1 tablet by mouth twice daily Coreg 12.5 mg Tab 12.5 mg = 1 tab(s), Oral, BID, Refills(s) 0 Start Date: 02/22/24 Status: Ordered Start: 01-21-2024 Start: 01-20-2024 End: 01-21-2024 take 6.25 mg by mouth twice daily at mealtime 6.25 mg, Oral, 2 TIMES DAILY WITH MEALS, First dose on Tue01/20/24 at 1700, Until Discontinued Administer with food to minimize the risk of orthostatic hypotension folic acid 1 mg oral tablet (2 sources) Start: 01-23-2024 Start: 01-21-2024 take 1 mg by mouth once daily 1 mg, Oral, DAILY, First dose on Tue01/21/24 at 1215, Until Discontinued 1000 ml glucose 100 mg/ml injection (1 source) Start: 01-19-2024 take 1 mL intravenously every hour IntraVENous, at 100 mL/hr, CONTINUOUS PRN, if blood glucose remains LESS THAN 70 mg/dL after 2 dextrose 10% intravenous boluses or administration of glucagon, Starting on Roz 01/19/24 at 0410 If blood glucose fails to stabilize after 2 dextrose 10% intravenous boluses or glucagon administration, start dextrose 10% infusion at 100 mL/hour and repeat blood glucose at 30 and 60 minutes. If blood glucose is GREATER THAN 70 mg/dL after 60 minutes, discontinue dextrose 10% infusion. insulin glargine 100 unt/ml injectable solution (6 sources) Insulin Analog Start: 01-22-2024 inject 20 [IU] by subcutaneous injection once daily 20 Units, SubCUTAneous, NIGHTLY, First dose (after last modification) on Tue01/22/24 at 2100, Until Discontinued Start: 01-22-2024 Start: 01-21-2024 End: 01-22-2024 inject 15 [IU] by subcutaneous injection once daily 15 Units, SubCUTAneous, NIGHTLY, First dose (after last modification) on Tue01/21/24 at 2100, Until Discontinued Start: 01-21-2024 End: 01-21-2024 inject 5 [IU] by subcutaneous injection once daily 5 Units, SubCUTAneous, NIGHTLY, First dose on Tue01/21/24 at 0100, Until Discontinued Start: 01-20-2024 5 Units, SubCU TAneous, ONCE, 1 dose, On Tue01/20/24 at 1415 Bridge - prior to stopping gtt inject 1 [IU] by sub cutaneous injection at bedtime Insulin glargine (Lantus) 100 UNIT/ML vial Inject 1 Units under the skin at bedtime. 0 Active insulin lispro 100 unt/ml in jectable solution (7 sources) Insulin Analog Start: 01-22-2024 Start: 01-20-2024 0-4 Units, Sub CUTAneous, NIGHTLY, First dose on Tue01/20/24 at 2100, Until Discontinued If continuous tube feedings/TPN/NPO, give correction dose based on result, no reduction in dose. If eating or bolus tube feeding: Corrective Bedtime Algorithm Glucose: Dose: 70-299 No Insulin 300-349 4 Units Over 349 4 Units and notify physician Start: 01-20-2024 0-16 Units, Navarrete bCUTAneous, 3 TIMES DAILY WITH MEALS, First dose on Tue01/20/24 at 1700, Until Discontinued High Dose Corrective Algorithm Glucose: Dose: 70-199 No Insulin 200-249 4 Units 250-299 8 Units 300-349 12 Units Over 349 16 Units and notify physician Start: 11-02-2021 End: 01-22-2024 Start: 11-02-2021 insulin lispro , 1 Unit Dial, (HUMALOG KWIKPEN) 100 UNIT/ML SOPN Inject 10 Units into the skin 3 times daily (before meals) If blood sugar is greater than 200 take 15 units 3 pen 3 11/02/2021 Active lisinopril 20 mg oral tablet (3 sources) Angiotensin Converting Enzyme Inhibitor Start: 02-22-2024 take 1 tablet by mouth once daily lisinopril 20 mg Tab 20 mg = 1 tab(s), Oral, Daily, Refills(s) 0 Start Date: 02/22/24 Status: Ordered Start: 09-24-2023 take 1 tablet by divine th every twelve hours Lisinopril 10 MG tablet Take 1 tablet by mouth every 12 hours. 30 tablet 1 09/24/2023 Active Start: 09-23-2023 End: 09-24-2023 Lisinopril (PRINIVIL) tablet 10 mg 50 ml magnesium sulfate 40 mg/ml injection (1 source) Start: 01-19-2024 take 2000 mg intravenously every hour as needed 2,000 mg, IntraVENous, at 25 mL/hr, Admi nister over 2 Hours, PRN, Other, Per IV Magnesium Replacement Protocol, Starting on Roz 01/19/24 at 0353 Mg Lab Replacement Action 1.4- 1.6 2 gram IVPB x 1 doses &nb sp; (2 gram Total) 1.0-1.3 2 gram IVPB x 2 doses &nb sp; (4 gram Total) less than 1.0 CALL PHYSICIAN and &n bsp; 2 gram IVPB x 2 doses (4 gram Total) Infuse at 1 gram/hr Repeat Mag level 1 hour after final administration Protocol not for use in Patients with CrCl less than 30mL/min niCARdipin e (CARDENE) 25 mg in sodium chloride 0.9 % 250 mL infusion ([id number]) (1 source) Start: 01-19-2024 niCARdipine (CARDENE) 25 mg in sodium chloride 0.9 % 250 mL infusion ([id number]) NIFEdipine 30 mg osmotic 24 hr extended release oral tablet (3 sources) D i h y d r o p y r i d i n e C a l c i u m C h a n n e l B l o c k e r Start: 02-22-2024 take 1 tablet by mouth once daily Procardia XL 30 mg Tab-ER 30 mg = 1 tab( s), Oral, Daily, Refills(s) 0 Start Date: 02/22/24 Status: Ordered Start: 01-23-2024 Start: 01-21-2024 take 30 mg by mouth once daily 30 mg, Oral, DAILY, First dose on 01/21/24 at 1530, Until Discontinued Do not crush or break. sildenafil (1 source) Phosphodiesterase 5 Inhibitor Sildenafil [...] by mouth 3 times daily. 0 Active Toujeo Max SoloStar (1 source) Start: 024 inject 60 [IU] by subcutaneous injection twice daily Toujeo Max SoloStar 60 unit(s), SubCutaneous, BID, Refills(s) 0 Start Date: 02/22/24 Status: Ordered Completed/Discontinued Medications Medication Drug Class(es) Dates Sig [...] (total volume) IVPB 20 ml albumin human, alf 250 mg/ml injection (1 source) Human Serum Albumin Start: 09-22-2023 End: 09-22-2023 albumin human 25 % injection 25 g albuterol 0.833 mg/ml / ipratropium bromide 0.167 mg/ml inhalation solution (1 source) Anticholinergic , beta2-Adrenergi c Agonist Start: 09-23-2023 End: 09-24-2023 take 3 mL by inhalation every four hours as needed Ipratropium-albut glendy (DUONEB) 0.5-2.5 (3) MG/3ML nebulizer solution 3 mL atorvastatin 10 mg oral tablet (1 source) HMG-CoA Reductase Inhibitor Start: 09-22-2023 End: 09-24-2023 take 10 mg by mouth once daily at bedtime 10 mg, Oral, DAILY AT BEDTIME, First dose on Roz 09/22/23 at 2100, Until Discontinued 50 ml calcium gluconate 20 mg/ml injection (1 source) Start: 01-19-2024 End: 01-19-2024 1,000 mg, IntraVENous, at 50 mL/hr, Administer over 60 Minutes, ONCE, On Roz 01/19/24 at 0900, For 1 dose cefTRIAXone (ROCEPHIN) 1 g in sodium chloride 0.9% (MB PLUS) 50 mL (total volume) IVPB (1 source) Start: 09-22-2023 End: 09-23-2023 take 1 g intravenously every twenty-four hours cefTRIAXone (ROCEPHIN) 1 g in sodium chloride 0.9% (MB PLUS) 50 mL (total volume) IVPB chlorhexidine gluconate 1.2 mg/ml mouthwash (1 source) Start: 01-19-2024 take 15 mL by mouth twice daily 15 mL, Mouth/Throat, 2 TIMES DAILY, First dose on Roz 01/19/24 at 1330, Until Discontinued For mechanical ventilation care. 100 ml dexmedetomidine 0.004 mg/ml injection (5 sources) Central alpha-2 Adrenergic Agonist Start: 01-19-2024 End: 01-21-2024 take 2.2-33.2 mL intravenously every hour 0.1-1.5 mcg/kg/hr 88.5 kg (2.2125-33.1875 mL/hr, rounded to 2.2-33.2 mL/hr), IntraVENous, CONTINUOUS, Starting on Roz 01/19/24 at 1330, Until 01/21/24 at 1213 Titrate Infusion? Yes Initial Infusion Dose: 0.4 mcg/kg/hr Goal of Therapy: RASS of 0 to -1 Contact Provider if: New onset HR less than 50 bpm, New onset SBP less than 90 mmHg, Patient is receiving maximum dose and is not achieving the goal of therapy If Titrate Infusion? is No : Disregard instructions below. &nbsp ;If Titrate infusion? is Yes : Titra te in increments of 0.2 mcg/kg/hr no more frequently than every 30 minutes to goal of therapy. If after titration rate change patient exhibits adverse hemodynamic response, next titration rate change may be adjusted by one-half of the previous rate change. Start: 09-22-2023 End: 09-23-2023 dexmedeTOMIDine in sodium ch loride 0.9% (PRECEDEX) [...] mg 20 ml etomidate 2 mg/ml injection (3 sources) General Anesthetic Start: 01-19-2024 End: 01-19-2024 20 mg, IntraVENous, ONCE, 1 dose, On Tue01/19/24 at 1345 Start: 01-19-2024 End: 01-19-2024 1 dose, Starting on Tue at 1247, Until Tue01/20/24 at 0059 Rashid Booth: cabinet override Rashid Booth: cabinet override Start: 09-21-2023 End: 09-21-2023 Etomidate (AMIDATE) injectio n glucagon (rdna) 1 mg injection (1 source) Antihypoglycemic Agent Start: 01-19-2024 inject 1 mg by subcutaneous injection every hour as needed 1 mg, SubCUTAneous, PRN, Starting on Tue01/19/24 at 0410, Until Discontinued, Low blood sugar, Blood glucose LESS THAN 70 mg/dL and patient NOT ALERT or NPO and does not have IV access. After administration, attempt intravenous access and start dextrose 10% at 100 mL/hr. Repeat blood glucose in 15 minutes x 2 and notify provider. 250 ml glucose 50 mg/ml / sodium chloride 4.5 mg/ml injection (2 sources) Start: 01-19-2024 take 1 mL intravenously every hour IntraVENous, at 150 mL/hr, CONTINUOUS PRN, blood glucose less than 250 mg/dL, Starting on Tue01/19/24 at 0828 When blood glucose equals 250 mg/dL or below, DISCONTINUE saline IV Fluid using Per Protocol order mode and start using this dextrose containing IV fluid order. DO NOT restart saline infusion if subsequent blood glucose returns above 250 mg/dL. Start: 09-22-2023 End: 09-24-2023 Dextrose 5% and sodium chlor jnaett 0.9% IV solution 1 ml haloperidol 5 mg/ml prefilled syringe (1 source) Typical Antipsychotic Start: 09-22-2023 End: 09-22-2023 Haloperidol lactate (HALDOL) injection 5 mg 1 ml heparin sodium, porcine 5000 unt/ml prefilled syringe (1 source) Unfractionated Heparin, Anti-coagulant Start: 01-19-2024 inject 1 dose by subcutaneous injection three times daily 5,000 Units, SubCUTAneous, EVERY 8 HOURS SCHEDULED (3 times per day), First dose on [facility] 01/19/24 at 0600, Until Discontinued 1 ml hydrALAZINE hydrochloride 20 mg/ml injection (1 source) Arteriolar Vasodilator Start: 09-23-2023 End: 09-24-2023 take 20 mg intravenously every four hours as needed hydrALAZINE (APRESOLINE) injection 20 mg hydroCHLOROthiazide 25 mg oral tablet (4 sources) Thiazide Diuretic Start: 04-19-2022 End: 01-22-2024 3 ml insulin aspart, human 100 unt/ml pen injector (2 sources) Insulin Analog Start: 02-22-2024 Insulin Aspart FlexPen 100 units/mL injectable solution 10-15 units, SubCutaneous, TIDAC, Refills(s) 0 Start Date: 02/22/24 Status: Ordered inject 1 [IU] by sub cutaneous injection at bedtime NovoLOG FlexPen 100 UNIT/ML Solution Pen-injector injection Inject 1 Units under the skin before meals & at bedtime. 0 Active 3 ml insulin detemir 100 unt /ml pen injector (4 sources) Insulin Analog Start: 11-02-2021 End: 01-22-2024 Start: 11-02-2021 insulin detemi r (LEVEMIR FLEXTOUCH) 100 UNIT/ML injection pen Inject 50 Units into the skin daily 5 pen 3 11/02/2021 Active Insulin regular (HUMULIN R;NOVOLIN R) injection (1 source) Start: 09-22-2023 End: 09-24-2023 Insulin regular (HUMULIN R;NOVOLIN R) injection iopamidol (ISOVUE-370) 76 % injection 75 mL (1 source) Start: 01-18-2024 End: 01-18-2024 iopamidol (ISOVUE-370) 76 % injection 75 mL labetalol hydrochloride 5 mg/ml injectable solution (5 sources) beta-Adrenergic Arlene Start: 01-21-2024 End: 01-21-2024 10 mg, IntraVENous, ONCE, 1 dose, On 01/21/24 at 2215 Start: 01-20-2024 20 mg, IntraVE Nous, EVERY 6 HOURS PRN, Starting on Tue01/20/24 at 1846, Until Discontinued, High Blood Pressure, for SBP>160, hold for HR<60 Start: 01-18-2024 End: 01-18-2024 labetalol (NORMODYNE;TRANDAT E) injection 20 mg Start: 09-23-2023 End: 09-24-2023 take 20 mg intravenously every six hours as needed Labetalol (NORMODYNE) injection 20 mg levETIRAcetam 500 mg oral tablet (1 source) Start: 09-23-2023 End: 09-24-2023 levETIRAcetam (KEPPRA) tablet 500 mg 1 ml LORazepam 2 mg/ml injection (1 source) Benzodiazepine Start: 01-19-2024 End: 01-19-2024 LORazepam (ATIVAN) injection 1 mg melatonin 3 mg oral tablet (2 sources) Start: 01-22-2024 End: 01-22-2024 take 3 mg by mouth once daily as needed for sleep 3 mg, Oral, NIGHTLY PRN, Starting on 01/22/24 at 0219, Until 01/22/24 at 0343, Sleep Start: 01-21-2024 take 5 mg by mouth o nce daily as needed 5 mg, Oral, NIGHTLY PRN, Starting on 01/21/24 at 0036, Until Discontinued, Sleep 2 ml midazolam 1 mg/ml injection (3 sources) Benzodiazepine Start: 01-19-2024 End: 01-19-2024 1 dose, Starting on Roz 01/19/24 at 1306, Until Roz 01/19/24 at 1306 SAMANTA CHRISTINA: cabinet override SAMANTA CHRISTINA: cabinet override Start: 09-21-2023 End: 09-21-2023 Midazolam HCl (PF) (VERSED) injection Start: 09-21-2023 End: 09-21-2023 midazolam (VERSED) injection 4 mg 200 ml niCARdipine hydrochloride 0.1 mg/ml injection (2 sources) Dihydropyridine Calcium Channel Arlene Start: 01-19-2024 End: 01-19-2024 2.5-15 mg/hr (25-150 mL/hr), IntraVENous, CONTINUOUS, Starting on Roz 01/19/24 at 0500, Until Roz 01/19/24 at 1705 Titrate Infusion? Yes Initial Infusion Rate: 5 mg/hr Goal of Therapy is: Other Other Goal: SBP <180 Contact Provider if: Patient is receiving the maximum dose and is not achieving the goal of therapy Do not administer through small veins (e.g. those on the dorsum of the hand or wrist); change the infusion site every 12 hours if a peripheral vein is used. If Titrate Infusion? is No : Disregard instructions below. If Titrate infusion? is Yes : Titrate in increments of 2.5 mg/hr no more frequently than every 15 minutes to goal of therapy. When approaching therapeutic goal or weaning off, smaller titration increments of 1 mg/hr no faster than every 15 minutes may be used to maintain goal. Start: 09-21-2023 End: 09-22-2023 niCARdipine in sodium chlori de (CARDENE) 20 mg/200 mL premix IV infusion 2 ml ondansetron 2 mg/ml injection (2 sources) Serotonin-3 Receptor Antagonist Start: 09-23-2023 End: 09-24-2023 take 4 mg intravenously every four hours as needed Ondansetron 4mg/2ml (ZOFRAN) injection 4 mg Start: 04-04-2022 End: 04-04-2022 ondansetron (ZOFRAN) injecti on 4 mg pantoprazole 40 mg delayed release oral tablet (3 sources) Proton Pump Inhibitor Start: 01-22-2024 take 40 mg by mouth once daily before breakfast 40 mg, Oral, DAILY BEFORE BREAKFAST, First dose on 01/22/24 at 0700, Until Discontinued Do not crush or break. Start: 09-23-2023 End: 09-24-2023 Pantoprazole (PROTONIX) tabl et DR 40 mg Start: 09-23-2023 End: 09-23-2023 Pantoprazole (PROTONIX) inje ction 40 mg polyethylene glycol [id number] mg powder for oral solution (1 source) Osmotic Laxative Start: 01-19-2024 17 g, Oral, DAILY PRN, Starting on Roz 01/19/24 at 0353, Until Discontinued, Constipation First line therapy for constipation 100 ml potassium chloride 0.1 meq/ml injection (1 source) Start: 01-19-2024 10 mEq, IntraVENous, PRN, Starting on Roz 01/19/24 at 0827, Until Discontinued, at 100 mL/hr, Potassium IV Replacement Above 5.2 No dose 4.3 to 5.2 10 mEq IVPB x 2 doses (20 mEq total) 3.4 to 4.2 10 mEq IVPB x 3 doses (30 mEq total) Below 3.4 10 mEq IVPB x 4 doses (40 mEq total) Infuse at 10 mEq/hr. Repeat Potassium lab 1 hour after final administration.&nbs p; Can be administered either through peripheral IV or central IV. 2 ml prochlorperazine 5 mg/ml injection (1 source) Phenothiazine Start: 04-04-2022 End: 04-04-2022 prochlorperazine (COMPAZINE) injection 10 mg 1 ml promethazine hydrochloride 25 mg/ml injection (1 source) Phenothiazine Start: 01-19-2024 inject 6.25 mg by intramuscular injection every six hours as needed 6.25 mg, IntraMUSCular, EVERY 6 HOURS PRN, Starting on Roz 01/19/24 at 0511, Until Discontinued, Nausea Only to be given as IM injection. 100 ml propofol 10 mg/ml injection (3 sources) General Anesthetic Start: 01-19-2024 End: 01-20-2024 5-50 mcg/kg/min 88.5 kg (2.655-26.55 mL/hr, rounded to 2.7-26.6 mL/hr), IntraVENous, CONTINUOUS, Starting on Roz 01/19/24 at 1330, Until Tue01/20/24 at 1722 Titrate Infusion? Yes Initial Infusion Dose: 30 mcg/kg/min Goal of Therapy: RASS of 0 to -1 Contact Provider if: New onset HR less than 50 bpm, New onset SBP less than 90 mmHg, Patient is receiving maximum dose and is not achieving the goal of therapy, Triglycerides greater than 500 mg/dL If Titrate Infusion? is No : Disregard instructions below. I f Titrate infusion? is Yes : Titrate in increments of 5 mcg/kg/min no more frequently than every 5 minutes to goal of therapy. If after titration rate change patient exhibits adverse hemodynamic response, next titration rate change may be adjusted by one-half of the previous rate change. If patient fails sedation interruption, resume propofol infusion at 50% of previous rate. Do not administer through the same I.V. catheter with blood or plasma. Tubing and any unused portions of propofol vials should be discarded after 12 hours. Start: 09-21-2023 End: 09-22-2023 Propofol (DIPRIVAN) 1000 MG/ 100ML premix infusion QUEtiapine 100 mg oral tablet (1 source) Atypical Antipsychotic Start: 09-23-2023 End: 09-24-2023 QUEtiapine (SEROquel) tablet 100 mg 1000 ml sodium chloride 4.5 mg/ml injection (11 sources) Start: 01-19-2024 10 mL, IntraVE Nous, PRN, Starting on Tue01/19/24 at 1614, Until Discontinued, Line Care Start: 01-19-2024 End: 01-19-2024 2,000 mL (22.6 mL/kg), IntraVENous, at 991.7 mL/hr, Administer over 121 Minutes, ONCE, On Tue01/19/24 at 1130, For 1 dose Start: 01-19-2024 End: 01-21-2024 IntraVENous, at 100 mL/hr, CONTINUOUS, Starting on Tue01/20/24 at 1415 Start: 01-19-2024 take 1 dose intraven ously twice daily 5-40 mL, IntraVENous, EVERY 12 HOURS SCHEDULED (2 times per day), First dose on Tue01/19/24 at 0900, Until Discontinued For Line Patency: Peripheral IV = 5 mL; Midline or Central Line = 10 mL/lumen. If following IV push medication, administer flush at same rate as the IV push. Flush volume is determined by type of infusion therapy being given. For non-viscous solutions use: Peripheral IV = 5 mL Midline or Central Line = 10 mL/lumen For viscous solutions (i.e. blood components, parenteral nutrition, contrast media, or after obtaining blood sample) use: Peripheral IV = 10 mL Midline or Central Line = 20 mL/lumen Start: 01-19-2024 IntraVENous, a t 5-250 mL/hr, PRN, if patient receiving piggyback infusions and maintenance fluids are not ordered OR KVO fluids to protect IV site / prevent frequent line interruptions/ long duration, Starting on Roz 01/19/24 at 0353 For piggyback infusion, administer at same rate as piggyback for a total of 25 mL. Enter 25 mL into dose field and piggyback rate into rate field of order. If piggyback is infusing at a rate less than 100 mL/hr, enter 25 mL into dose field and 100 mL/hr into rate field of order. For KVO fluids, enter rate of 20 mL/hr or less into rate field of order. Start: 01-19-2024 take 5-40 mL intrave nously once as needed 5-40 mL, IntraVENous, PRN, Starting on Roz 01/19/24 at 0353, Until Discontinued, Line Care, After every IV line use For Line Patency: Peripheral IV = 5 mL; Midline or Central Line = 10 mL/lumen. If following IV push medication, administer flush at same rate as the IV push. Flush volume is determined by type of infusion therapy being given. For non-viscous solutions use: Peripheral IV = 5 mL Midline or Central Line = 10 mL/lumen For viscous solutions (i.e. blood components, parenteral nutrition, contrast media, or after obtaining blood sample) use: Peripheral IV = 10 mL Midline or Central Line = 20 mL/lumen Start: 09-22-2023 End: 09-22-2023 Sodium chloride 0.9% IV solu tion 1,000 mL Start: 09-21-2023 End: 09-22-2023 Sodium chloride 0.9% IV solu tion Start: 04-04-2022 End: 04-04-2022 0.9 % sodium chloride bolus succinylcholine chloride 20 mg/ml injectable solution (2 sources) Depolarizing Neuromuscular Arlene Start: 01-19-2024 End: 01-19-2024 100 mg, IntraVENous, ONCE, 1 dose, On Roz 01/19/24 at 1345 Start: 01-19-2024 End: 01-19-2024 1 dose, Starting on Roz at 1247, Until Tue01/20/24 at 0059 Rashid Booth: cabinet override Rashid Booth: cabinet override thiamine 100 mg oral tablet (1 source) Start: 01-21-2024 take 100 mg by mouth once daily 100 mg, Oral, DAILY, First dose on Tue01/21/24 at 1215, Until Discontinued vecuronium bromide 1 mg/ml injectable solution (2 sources) Nondepolarizing Neuromuscular Arlene Start: 09-21-2023 End: 09-21-2023 Vecuronium (NORCURON) injection 8.5 mg Start: 09-21-2023 End: 09-21-2023 Vecuronium (NORCURON) inject ion (9 sources) Start: 01-19-2024 End: 01-20-2024 900 mg (rounded from 885 mg = 10 mg/kg 88.5 kg), IntraVENous, EVERY 8 HOURS, First dose on Roz 01/19/24 at 1200, Until Discontinued Antimicrobial Indications: Other Other Abx Indication: concern for meningitis Start: 01-19-2024 End: 01-21-2024 IntraVENous, at 100 mL/hr, A dminister over 30 Minutes, DAILY, First dose on Roz 01/19/24 at 1145 Start: 01-19-2024 End: 01-21-2024 40 mg, IntraVENous, DAILY, F irst dose on Roz 01/19/24 at 0900 Reconstitute each 40 mg vial with 10 mL of 0.9% sodium chloride and administer each 40 mg vial over at least 2 minutes. Start: 01-19-2024 15 mmol, Intra VENous, at 83.3 mL/hr, Administer over 180 Minutes, PRN, Phosphate IV Replacement, Starting on Roz 01/19/24 at 0827 Phos level Replacement Action 1.5 to 2.7 mg/dL 15 mmol IVPB over 3 hours LESS than 1.5 mg/dL CALL PHYSICIAN and 15 mmol IVPB over 3 hours Repeat Phos level 1 hour after administration. Protocol not for use in Patients with CrCl less than 30mL/min Start: 01-19-2024 [Order 1 Start ] Name: LORazepam (ATIVAN) tablet 1 mg Signed Summary: 1 mg, Oral, EVERY 1 HOUR PRN (WITHDRAWAL), Starting on Roz 01/19/24 at 0716, Until Discontinued, For alcohol withdrawal. For CIWA score 8 to 10. Reassess CIWA one hour after each dose of medication and as needed. [Order 1 End] [Order 2 Start] Name: LORazepam (ATIVAN) injection 1 mg Signed Summary: 1 mg, IntraVENous, EVERY 1 HOUR PRN (WITHDRAWAL), Starting on Roz 01/19/24 at 0716, Until Discontinued, Withdrawal, For alcohol withdrawal. For CIWA score 8 to 10. If both oral and intravenous CIWA medications ordered, use intravenous if unable to tolerate oral equivalent. Reassess CIWA one hour after each dose of medication and as needed. [Order 2 End] [Order 3 Start] Name: LORazepam (ATIVAN) tablet 2 mg Signed Summary: 2 mg, Oral, EVERY 1 HOUR PRN (WITHDRAWAL), Starting on Roz 01/19/24 at 0716, Until Discontinued, For alcohol withdrawal. For CIWA score 11 to 15. Reassess CIWA one hour after each dose of medication and as needed. [Order 3 End] [Order 4 Start] Name: LORazepam (ATIVAN) injection 2 mg Signed Summary: 2 mg, IntraVENous, EVERY 1 HOUR PRN (WITHDRAWAL), Starting on Roz 01/19/24 at 0716, Until Discontinued, Withdrawal, For alcohol withdrawal. For CIWA score 11 to 15. If both oral and intravenous CIWA medications ordered, use intravenous if unable to tolerate oral equivalent. Reassess CIWA one hour after each dose of medication and as needed. [Order 4 End] Start: 01-19-2024 [Order 1 Start ] Name: dextrose bolus 10% 125 mL Signed Summary: 125 mL, IntraVENous, at 937.5 mL/hr, Administer over 8 Minutes, PRN, Other, Blood glucose 40 - 69 mg/dL and patient NOT ALERT or NPO, Starting on Roz 01/19/24 at 0410 Repeat blood glucose in 15 minutes. If blood glucose remains LESS THAN 70 mg/dL, repeat treatment and recheck blood glucose in 15 minutes x 2. If using glycemic management system, dose as instructed per system. If blood glucose remains LESS THAN 70 mg/dL after 2 intravenous boluses start dextrose 10% at 100 mL/hour and notify provider. [Order 1 End] [Order 2 Start] Name: dextrose bolus 10% 250 mL Signed Summary: 250 mL, IntraVENous, at 937.5 mL/hr, Administer over 16 Minutes, PRN, Other, Blood glucose LESS THAN 40 mg/dL and patient NOT ALERT or NPO, Starting on Roz 01/19/24 at 0410 Repeat blood glucose in 15 minutes. If blood glucose remains LESS THAN 70 mg/dL, repeat treatment and recheck blood glucose in 15 minutes x 2. If using glycemic management system, dose as instructed per system. If blood glucose remains LESS THAN 70 mg/dL after 2 intravenous boluses start dextrose 10% at 100 mL/hour and notify provider. [Order 2 End] Start: 01-19-2024 [Order 1 Start ] Name: acetaminophen (TYLENOL) tablet 650 mg Signed Summary: 650 mg, Oral, EVERY 6 HOURS PRN, Starting on Roz 01/19/24 at 0353, Until Discontinued, Pain Mild (1-3), Fever, For temp greater than 100.4 F (38 C) Maximum dose of acetaminophen is 4000 mg from all sources in 24 hours. [Order 1 End] [Order 2 Start] Name: acetaminophen (TYLENOL) suppository 650 mg Signed Summary: 650 mg, Rectal, EVERY 6 HOURS PRN, Starting on Roz 01/19/24 at 0353, Until Discontinued, Pain Mild (1-3), Fever, For temp greater than 100.4 F (38 C) Administer if oral route cannot be used. [Order 2 End] Start: 01-19-2024 [Order 1 Start ] Name: ondansetron (ZOFRAN-ODT) disintegrating tablet 4 mg Signed Summary: 4 mg, Oral, EVERY 8 HOURS PRN, Starting on Roz 01/19/24 at 0353, Until Discontinued, Nausea, Vomiting [Order 1 End] [Order 2 Start] Name: ondansetron (ZOFRAN) injection 4 mg Signed Summary: 4 mg, IntraVENous, EVERY 6 HOURS PRN, Starting on Roz 01/19/24 at 0353, Until Discontinued, Nausea, Vomiting Administer if oral route cannot be used. [Order 2 End] Start: 01-19-2024 [Order 1 Start ] Name: potassium chloride 20 mEq/50 mL IVPB (Central Line) Signed Summary: 20 mEq, IntraVENous, PRN, Starting on Roz 01/19/24 at 0353, Until Discontinued, at 50 mL/hr, Per IV Potassium Replacement Protocol Use first line when central line is available for replacement. K Lab Replacement Action 3.1-3.5 20 mEq IVPB x 2 doses &nbsp ; (40 mEq Total) 2.7-3.0 20 mEq IVPB x 3 doses &nbsp ; (60 mEq Total) less than 2.7 CALL PHYSICIAN and &nbsp ; 20 mEq IVPB x 3 doses &nbsp ; (60 mEq Total) Infuse at 20 mEq/hr Repeat Potassium lab 1 hour after final administration. Protocol not for use in Patients with CrCl less than 30mL/min [Order 1 End] [Order 2 Start] Name: potassium chloride 10 mEq/100 mL IVPB (Peripheral Line) Signed Summary: 10 mEq, IntraVENous, PRN, Starting on [facility] 01/19/24 at 0353, Until Discontinued, at 100 mL/hr, Per IV Potassium Replacement Protocol Use when central line is not available for replacement. K Lab Replacement Action 3.1-3.5 10 mEq IVPB x 4 doses &nbsp ; (40 mEq Total) 2.7-3.0 10 mEq IVPB x 6 doses &nbsp ; (60 mEq Total) less than 2.7 CALL PHYSICIAN and &nbsp ; 10 mEq IVPB x 6 doses &nbsp ; (60 mEq Total) Infuse at 10 mEq/hr Repeat Potassium lab 1 hour after final administration. Protocol not for use in Patients with CrCl less than 30mL/min [Order 2 End] (1 source) Start: 01-19-2024 16 g (4 tablet ), Oral, PRN, Starting on [facility] 01/19/24 at 0410, Until Discontinued, Low blood sugar If blood glucose is LESS THAN 70 mg/dL and patient is alert and tolerating oral. Give 4 tablets (16g) Repeat blood glucose in 15 minutes. If blood glucose is LESS THAN 70 mg/dL, repeat treatment and recheck blood glucose in 15 minutes x 2. If blood glucose remains LESS THAN 70 mg/dL, notify provider. (1 source) Start: 01-20-2024 End: 01-22-2024 take 2000 mg intravenously five times daily 2,000 mg, IntraVENous, EVERY 24 HOURS, First dose (after last modification) on Tue01/20/24 at 1000, Until Discontinued Antimicrobial Indications: Other Other Abx Indication: concern for meningitis Administer as slow IV Push over 5 mins (1 source) Start: 01-19-2024 End: 01-19-2024 take 1 dose intravenously once 17 mL, IntraVENous, IMG ONCE PRN, 1 dose, Starting on Tue01/19/24 at 1614, Until Tue01/19/24 at 1617, Other Problems Active Problems Problem Classification Problem Date Documented Date Episodic/Chronic Acute cerebrovascular disease (1 source) Cerebrovascular accident 02-22-2024 Chronic Acute myocardial infarction (2 sources) Myocardial infarction; Translations: [Non-ST elevation (NSTEMI) myocardial infarction] Onset: 01-19-2024 01-19-2024 Chronic Bacterial infection; unspecified site (5 sources) Bacteremia due to Staphylococcus aureus; Translations: [Bacteremia] Onset: 10-25-2022 11-02-2021 Episodic Cardiac dysrhythmias (4 sources) Sinus tachycardia; Translations: [Tachycardia, unspecified] 10-30-2021 Episodic Chronic ulcer of skin (16 sources) Non-pressure chronic ulcer of left heel and midfoot limited to breakdown of skin; Translations: [Non-pressure chronic ulcer of other part of right lower leg limited to breakdown of skin] Onset: 11-12-2022 Chronic Deficiency and other anemia (1 source) Iron deficiency anemia 02-22-2024 Episodic Diabetes mellitus with complications (19 sources) Type 2 diabetes mellitus; Translations: [Type 2 diabetes mellitus with ketoacidosis without coma] Onset: 10-27-2021 11-02-2021 Chronic Diabetes mellitus without complication (6 sources) Type 2 diabetes mellitus without complications; Translations: [Diabetes mellitus] Onset: 03-18-2022 Chronic Disorders of lipid metabolism (4 sources) Pure hypercholesterolemia, unspecified; Translations: [Pure hyperglyceridemia] Onset: 01-03-2023 02-22-2024 Chronic Essential hypertension (3 sources) Essential hypertension; Translations: [Essential (primary) hypertension] Onset: 01-03-2023 Chronic Fever of unknown origin (2 sources) Fever; Translations: [Fever, unspecified] Onset: 01-19-2024 01-19-2024 Episodic Fluid and electrolyte disorders (2 sources) Lactic acidosis; Translations: [Lactic acidosis] Onset: 01-19-2024 01-19-2024 Episodic Headache; including migraine (2 sources) Acute headache; Translations: [Acute nonintractable headache, unspecified headache type] Episodic Hypertension with complications and secondary hypertension (13 sources) Hypertensive emergency; Translations: [Hypertensive emergency] Onset: 09-21-2023 09-21-2023 Chronic Nutritional deficiencies (4 sources) Undernutrition; Translations: [Mild protein-calorie malnutrition] Onset: 10-28-2021 10-28-2021 Chronic Other aftercare (1 source) detention (current) use of insulin; Translations: [ENDOCRINOLOGIST CURRENT USE OF INSULIN] Onset: 12-30-2022 Episodic Other aftercare (1 source) Other fpc (current) drug therapy; Translations: [OTH ENDOCRINOLOGIST CURRENT DRUG THERAPY] Onset: 12-30-2022 Episodic Other circulatory disease (1 source) Elevated blood pressure; Translations: [Elevated blood-pressure reading, without diagnosis of hypertension] Episodic Other diseases of kidney and ureters (2 sources) Renal impairment; Translations: [Disorder of kidney and ureter, unspecified] Onset: 09-22-2023 09-22-2023 Episodic Other lower respiratory disease (3 sources) Apnea; Translations: [Apnea, not elsewhere classified] Onset: 01-22-2024 01-19-2024 Episodic Other lower respiratory disease (1 source) Apnea, not elsewhere classified; Translations: [Apnea, not elsewhere classified] Onset: 01-22-2024 Episodic Other nervous system disorders (2 sources) Disorder of brain; Translations: [Encephalopathy, unspecified] Onset: 01-19-2024 01-19-2024 Chronic Other nervous system disorders (3 sources) Dysarthria and anarthria; Translations: [DYSARTHRIA AND ANARTHRIA] Onset: 12-27-2022 Episodic Paralysis (4 sources) 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; Translations: [MONOPLEG UP LIMB RT NONDOM SIDE] Onset: 04-28-2022 Chronic Peripheral and visceral atherosclerosis (1 source) Peripheral vascular disease, unspecified; Translations: [PERIPHERAL VASCULAR DISEASE UNS] Onset: 01-03-2023 Chronic Residual codes; unclassified (3 sources) Altered mental status; Translations: [Altered mental status, unspecified] Onset: 01-19-2024 09-21-2023 Episodic Residual codes; unclassified (2 sources) Delirium; Translations: [Disorientation, unspecified] Onset: 09-22-2023 09-22-2023 Episodic Residual codes; unclassified (1 source) Pain, unspecified; Translations: [Pain, unspecified] Onset: 10-16-2023 Episodic Respiratory failure; insufficiency; arrest (adult) (2 sources) Acute respiratory failure; Translations: [Acute respiratory failure, unspecified whether with hypoxia or hypercapnia] Onset: 09-21-2023 09-21-2023 Episodic Skin and subcutaneous tissue infections (7 sources) Cellulitis, unspecified; Translations: [Cutaneous abscess of right lower limb] Onset: 10-13-2022 Episodic Spondylosis; intervertebral disc disorders; other back problems (1 source) Cervical radiculopathy 02-22-2024 Episodic Substance-related disorders (2 sources) Nicotine dependence, [...] [DIETARY COUNSELING AND SURVEILLANCE] Onset: 03-24-2022 Episodic Open wounds of extremities (1 source) [...] HISTORY OF DIABETES MELLITUS] Onset: 10-25-2022 Episodic Residual codes; unclassified (2 sources) Altered mental status, unspecified; Translations: [Altered mental status, unspecified] Onset: 09-21-2023 Episodic Unclassified (1 source) CONTACT W/AND (SUSP) EXPOS COVID-19; Translations: [CONTACT W/AND (SUSP) EXPOS COVID-19] Onset: 06-01-2022 Results Test Name Value Interpretation Reference Range Facility Physician Referralon 024 Physician Referral [id number]#[id number] Normal [facility] Physician Referralon 024 Physician Referral [id number] Normal [facility] Q Fever Serology,IFAon 01-27 Q-Fever,Phase I IgG Negative Normal Negative [facility] Comment on above: Result Comment: (NOT E) INTERPRETIVE INFORMATION: C. Burnetii Abs, IgG Phase I Screen Acute Q fever is best demonstrated by a four-fold rise in phase II IgG titers when comparing two serum samples collected 3-6 weeks apart, and testing is performed in the same laboratory at the same time. Phase I IgG titers can increase during seroconversion. However, in the case of acute infection, the phase I IgG titer should remain lower than the phase II titer. In the absence of an acute sample, a single convalescent serum sample with a phase II IgG titer greater than 1:128 in a patient who has been ill greater than 1 week, indicates probable acute Q fever. Chronic Q fever is best demonstrated by a phase I IgG titer greater than the phase II IgG titer. Phase I and phase II IgG titers may remain elevated for months or years after acute infection or during convalescence. Coxiella burnetii (Q-Fever) Antibody IgG, Phase I is negative. No further testing will be performed. Performed By: #### A QFEV ####[facility] [place] [address] [id number] lab Director: Wil Swanson MD Q-Fever,Phase II IgG Negative Normal Negative [facility] Comment on above: Result Comment: (NOT E) INTERPRETIVE INFORMATION: C. Burnetii Abs, IgG Phase II Screen Acute Q fever is best demonstrated by a four-fold rise in phase II IgG titers when comparing two serum samples collected 3-6 weeks apart, and testing is performed in the same laboratory at the same time. Phase I IgG titers can increase during seroconversion. However, in the case of acute infection, the phase I IgG titer should remain lower than the phase II titer. In the absence of an acute sample, a single convalescent serum sample with a phase II IgG titer greater than 1:128 in a patient who has been ill greater than 1 week, indicates probable acute Q fever. Chronic Q fever is best demonstrated by a phase I IgG titer greater than the phase II IgG titer. Phase I and phase II IgG titers may remain elevated for months or years after acute infection or during convalescence. Coxiella burnetii (Q-Fever) Antibody IgG, Phase II is negative. No further testing will be performed. Performed By: [facility] [address] [place] [id number] Regional Business Manager: Rogelio Miranda MD, PhD CLIA Number: [id number] Performed By: #### A QFEV ####[facility] [place] [address] [id number] lab Director: Wil Swanson MD Cult,Bloodon 01-24-2024 Cult,Blood Specimen Description .BLOOD Special Requests L HAND 5 ML Culture NO GROWTH 5 DAYS Report Status FINAL 01/24/2024 Normal [facility] Comment on above: Performed By: #### B C ####[facility] [id number] [place], [place] [id number] lab Director: Ramiro Mark MD Cult,Blood Specimen Description .BLOOD Special Requests R HAND 5 ML Culture NO GROWTH 5 DAYS Report Status FINAL 01/24/2024 Normal [facility] Comment on above: Performed By: #### B C ####[address] [address] lab Director: Ramiro Mark MD Brucella Ab, IgG/IgMon 01-22 Brucella Ab, IgG/M <1:20 Normal <1:20 [facility] Comment on above: Result Comment: (NOT E) INTERPRETIVE INFORMATION: Brucella Ab (Total) by Agglutination Cross-reactions may occur between Brucella and F. tularensis antigens and antisera; therefore, parallel tests should be run with these antigens. A fourfold rise in titer is considered diagnostic. A single serum titer of 1:80 or 1:160 is suggestive of brucellosis when accompanied by a compatible clinical course in a patient with a history of potential exposures. Performed By: [facility] [address] [place] [address] Regional Business Manager: Rogelio Miranda MD, PhD CLIA Number: [id number] Performed By: #### A BRUAB ####[employer] [id number] [place] [address] lab Director: Wil Swanson MD West Nile Virus, CSFon 01-22 WNV Ab IgG, CSF 0.05 IV Normal <=1.29 [facility] Comment on above: Result Comment: (NOT E) INTERPRETIVE INFORMATION: West Nile Virus Ab IgG by AL, CSF 1.29 IV or less ....... Negative: No significant level of West Nile virus IgG antibody detected. 1.30 - 1.49 IV ........ Equivocal: Questionable presence of West Nile virus IgG antibody detected. Repeat testing in 10-14 days may be helpful. 1.50 IV or greater .... Positive: Presence of IgG antibody to West Nile virus detected, suggestive of current or past infection. This test is intended to be used as a semi-quantitative means of detecting West Nile virus-specific IgG in CSF samples in which there is a clinical suspicion of West Nile Virus infection. This test should not be used solely for quantitative purposes, nor should the results be used without correlation to clinical history or other data. Because other members of the Flaviviridae family, such as [place] encephalitis virus, show extensive cross-reactivity with West Nile virus, serologic testing specific for these species should be considered. The detection of antibodies to West Nile virus in cerebrospinal fluid may indicate central nervous system infection. However, consideration must be given to possible contamination by blood or transfer of serum antibodies across the blood-brain barrier. This test was developed and its performance characteristics determined by [facility]. It has not been cleared or approved by the [place] Food and Drug Administration. This test was performed in a CLIA certified laboratory and is intended for clinical purposes. Performed By: #### C TP, CGLU, CFVD, MEVP, CFCNT ####[facility] [place] [address] Lab Director: Ramiro Mark MD#### ALYMCT, AWNCSF ####[facility] [id number] [place] [address] Lab Director: Wil Swanson MD WNV Ab IgM, CSF 0.00 IV Normal <=0.89 [facility] Comment on above: Result Comment: (NOT E) INTERPRETIVE INFORMATION: West Nile Virus Ab IgM by AL, CSF 0.89 IV or less ...... Negative - No significant level of West Nile virus IgM antibody detected. 0.90-1.10 IV ......... Equivocal - Questionable presence of West Nile virus IgM antibody detected. Repeat testing in 10-14 days may be helpful. 1.11 IV or greater ... Positive - Presence of IgM antibody to West Nile virus detected, suggestive of current or recent infection. This test is intended to be used as a semi-quantitative means of detecting West Nile virus-specific IgM in CSF samples in which there is a clinical suspicion of West Nile virus infection. This test should not be used solely for quantitative purposes, nor should the results be used without correlation to clinical history or other data. Because other members of the Flaviviridae family, such as [place] encephalitis virus, show extensive cross-reactivity with West Nile virus, serologic testing specific for these species should be considered. The detection of antibodies to West Nile virus in cerebrospinal fluid may indicate central nervous system infection. However, consideration must be given to possible contamination by blood or transfer of serum antibodies across the blood-brain barrier. This test was developed and its performance characteristics determined by [facility]. It has not been cleared or approved by the [place] Food and Drug Administration. This test was performed in a CLIA certified laboratory and is intended for clinical purposes. Performed By: [facility] [address] [place] [address] Regional Business Manager: Rogelio Miranda MD, PhD CLIA Number: [id number] Performed By: #### C TP, CGLU, CFVD, MEVP, CFCNT ####[employer] [place] [address] Lab Director: Ramiro Mark MD#### ALYMCT, AWNCSF ####[facility] [place] [id number] lab Director: Wil Swanson MD Basic Metabolic Panelon 04-0 Anion gap [Moles/Vol] 9 mmol/L 9 - 16 mmol/L [facility] [employer] Calcium [Mass/Vol] 8.3 mg/dL Low 8.6 - 10. 4 mg/dL [employer] Chloride [Moles/Vol] 105 mmol/L 98 - 10 7 mmol/L [employer] CO2 [Moles/Vol] 22 mmol/L 20 - 31 mmol/L [employer] Creatinine [Mass/Vol] 1.3 mg/dL High 0.70 - 1.20 mg/dL [facility] [employer] GFR/1.73 sq M.predicted MDRD (S/P/Bld) [Vol rate/Area] 69 mL/min/{1.73_m2} - PINF [facility] Glucose [Mass/Vol] 225 mg/dL High 74 - 99 mg/dL [facility] Interpretation and review of laboratory results Abnormal [facility] Potassium [Moles/Vol] 3.8 mmol/L 3.7 - 5.3 mmol/L [facility] Sodium [Moles/Vol] 136 mmol/L 136 - 145 mmol/L [facility] Urea nitrogen [Mass/Vol] 25 mg/dL High 6 - 20 mg/d L [facility] Basic Metabolic Profon 01-21 Anion gap [Moles/Vol] 9 mmol/L Normal 9-16 [facility] Comment on above: Performed By: #### M G, CHELO, BMP #### [employer] [address] [place] [phone] Sports Lawyer: Ramiro Mark MD Calcium [Mass/Vol] 8.3 mg/dL Low 8.6-10.4 [facility] Comment on above: Performed By: #### Andres G, CHELO, BMP #### [employer] [address] [place] [phone] Sports Lawyer: Ramiro Mark MD Chloride [Moles/Vol] 105 mmol/L Normal 98-107 [facility] Comment on above: Performed By: #### Andres G, CHELO, BMP #### [employer] [address] [place] [phone] Sports Lawyer: Ramiro Mark MD CO2 [Moles/Vol] 22 mmol/L Normal 20-31 [facility] Comment on above: Performed By: #### M G, CHELO, BMP #### [employer] [address] [place] [phone] Sports Lawyer: Ramiro Mark MD Creatinine [Mass/Vol] 1.3 mg/dL High 0.70-1.20 [facility] Comment on above: Performed By: #### M G, CHELO, BMP #### [employer] [address] [place] [phone] Sports Lawyer: Ramiro Mark MD GFR/1.73 sq M.predicted among non-blacks MDRD (S/P/Bld) [Vol rate/Area] 69 mL/min/{1.73_m2} Normal >60 [facility] Comment on above: Result Comment: These results are not intended for use in patients <18 years of age. eGFR results are calculated without a race factor using the 2020 CKD-EPI equation. Careful clinical correlation is recommended, particularly when comparing to results calculated using previous equations. The CKD-EPI equation is less accurate in patients with extremes of muscle mass, extra-renal metabolism of creatine, excessive creatine ingestion, or following therapy that affects renal tubular secretion. Performed By: #### Andres Arana CHELO, BMP #### [facility] [address] [place] [phone] Sports Lawyer: Ramiro Mark MD Glucose [Mass/Vol] 225 mg/dL High 74-99 [facility] Comment on above: Performed By: #### Andres Arana CHELO, BMP #### [facility] [employer] [address] [place] [phone] Sports Lawyer: Ramiro Mark MD Potassium [Moles/Vol] 3.8 mmol/L Normal 3.7-5.3 [facility] Comment on above: Performed By: #### Andres Arana CHELO, BMP #### [facility] [employer] [address] [place] [id number] Sports Lawyer: Ramiro Mark MD Sodium [Moles/Vol] 136 mmol/L Normal 136-145 [facility] Comment on above: Performed By: #### Andres Arana CHELO, BMP #### [facility] [address] [place] [phone] Sports Lawyer: Ramiro Mark MD Urea nitrogen [Mass/Vol] 25 mg/dL High 6-20 [facility] Comment on above: Performed By: #### Andres G, CHELO, BMP #### [facility] [address] [place] [address] [place] [address] Sports Lawyer: Ramiro Mark MD CBC with Auto Differentialon 01-22-2024 Basophils (Bld) [#/Vol] 0.05 10*3/uL [facility] Basophils/100 WBC (Bld) 1 % 0 - 2 % B ON [facility] Eosinophils (Bld) [#/Vol] 0.18 10*3/uL [facility] Eosinophils/100 WBC (Bld) 2 % 1 - 4 % [facility] Erythrocyte distribution width (RBC) [Ratio] 13.9 % 11.8 - 14.4 % [facility] Hematocrit (Bld) [Volume fraction] 31.6 % Low 40.7 - 50.3 % [facility] Hemoglobin (Bld) [Mass/Vol] 10.2 g/dL Low 13.0 - 17.0 g/dL [facility] Immature granulocytes (Bld) [#/Vol] [facility] Immature granulocytes/100 WBC (Bld) 0 % 0 [facility] Interpretation and review of laboratory results Abnormal [facility] Lymphocytes/100 WBC (Bld) 21 % Low 24 - 43 % [facility] Lymphocytes/100 WBC (Bld) 1.58 % [facility] MCH (RBC) [Entitic mass] 29.3 pg 25. 2 - 33.5 pg [facility] MCHC (RBC) [Mass/Vol] 32.3 g/dL 28.4 - 34.8 g/dL [facility] MCV (RBC) [Entitic vol] 90.8 fL 82.6 - 102.9 fL [facility] Monocytes/100 WBC (Bld) 7 % 3 - 12 % B ON [facility] Monocytes/100 WBC (Bld) 0.52 % B ON [facility] Neutrophils/100 WBC (Bld) 69 % High 36 - 65 % [facility] Nucleated RBC/100 WBC (Bld) [Ratio] 0.0 % 0.0 per 100 WBC [facility] Platelet mean volume (Bld) [Entitic vol] 10.8 fL 8.1 - 13.5 fL [facility] Platelets (Bld) [#/Vol] 164 10*3/uL [facility] RBC (Bld) [#/Vol] 3.48 10*6/uL Low 4.21 - 5.7 7 m/uL [facility] Segmented neutrophils/100 WBC (Bld) 5.02 % [facility] WBC other (Bld) [#/Vol] 7.4 B ON [facility] CBC with Diffon 01-22-2024 Abs. Basophil 0.05 k/uL Normal 0.00-0.20 [facility] Comment on above: Performed By: #### Andres Arana CHELO, BMP #### [facility] [employer] [address] [place] [address] Sports Lawyer: Ramiro Mark MD Abs.Imm.Granulocyte <0.03 Normal 0.00-0.30 [facility] Comment on above: Performed By: #### Andres Arana CHELO, BMP #### [facility] [employer] [address] [place] [address] Sports Lawyer: Ramiro Mark MD Abs.Neutrophil (Seg) 5.02 k/uL Normal 1.50-8.10 [facility] Comment on above: Performed By: #### Andres Arana CHELO, BMP #### [facility] [employer] [address] [place] [address] Sports Lawyer: Ramiro Mark MD Basophils/100 WBC (Bld) 1 % Normal 0-2 M [facility] Comment on above: Performed By: #### Andres G, CHELO, BMP #### [facility] [employer] [address] [place] [address] Sports Lawyer: Ramiro Mark MD Eosinophils (Bld) [#/Vol] 0.18 10*3/uL Normal 0.00-0.4 4 [facility] Comment on above: Performed By: #### Andres G, CHELO, BMP #### [facility] [address] [place] [address] Sports Lawyer: Ramiro Mark MD Eosinophils/100 WBC (Bld) 2 % Normal 1-4 [facility] Comment on above: Performed By: #### Andres G, CHELO, BMP #### [facility] [address] [place] [address] Sports Lawyer: Ramiro Mark MD Erythrocyte distribution width (RBC) [Ratio] 13.9 % Normal 11.8-14.4 [facility] Comment on above: Performed By: #### M G, CHELO, BMP #### [facility] [address] [place] [address] Sports Lawyer: Ramiro Mark MD Hematocrit (Bld) [Volume fraction] 31.6 % Low 40.7-50.3 [facility] Comment on above: Performed By: #### Andres Arana, CHELO, BMP #### [facility] [address] [place] [address] Sports Lawyer: Ramiro Mark MD Hemoglobin (Bld) [Mass/Vol] 10.2 g/dL Low 13.0-17. 0 [facility] Comment on above: Performed By: #### Andres G, CHELO, BMP #### [facility] [address] [place] [address] Sports Lawyer: Ramiro Mark MD Immature granulocytes/100 WBC (Bld) 0 % Normal 0 [facility] Comment on above: Performed By: #### Andres G, CHELO, BMP #### [employer] [facility] [address] [place] [address] Sports Lawyer: Ramiro Mark MD Lymphocytes (Bld) [#/Vol] 1.58 10*3/uL Normal 1.10-3.7 0 [facility] Comment on above: Performed By: #### Andres G, CHELO, BMP #### [employer] [address] [place] [address] Sports Lawyer: Ramiro Mark MD Lymphocytes/100 WBC (Bld) 21 % Low 24-43 [facility] Comment on above: Performed By: #### Andres G, CHELO, BMP #### [address] [address] Sports Lawyer: Ramiro Mark MD MCH (RBC) [Entitic mass] 29.3 pg Normal 25.2-33.5 [facility] Comment on above: Performed By: #### M G, CHELO, BMP #### [facility] [employer] [address] [place] [address] Sports Lawyer: Ramiro Mark MD MCHC (RBC) [Mass/Vol] 32.3 g/dL Normal 28.4-34.8 [facility] Comment on above: Performed By: #### Andres G, CHELO, BMP #### [address] [address] Sports Lawyer: Ramiro Mark MD MCV (RBC) [Entitic vol] 90.8 fL Normal 82.6-102.9 [facility] Comment on above: Performed By: #### Andres G, CHELO, BMP #### [address] [address] Sports Lawyer: Ramiro Mark MD Monocytes (Bld) [#/Vol] 0.52 10*3/uL Normal 0.10-1.20 [facility] Comment on above: Performed By: #### M G, CHELO, BMP #### [facility] [employer] [address] [place] [address] Sports Lawyer: Ramiro Mark MD Monocytes/100 WBC (Bld) 7 % Normal 3-12 M [facility] Comment on above: Performed By: #### M G, CHELO, BMP #### [facility] [employer] [address] [place] [address] Sports Lawyer: Ramiro Mark MD Neutrophil (Seg) 69 % High 36-65 [facility] Comment on above: Performed By: #### Andres Arana CHELO, BMP #### [address] [address] Sports Lawyer: Ramiro Mark MD NRBC Automated 0.0 per 100 WBC Normal 0.0 [facility] Comment on above: Performed By: #### Andres Arana CHELO, BMP #### [facility] [employer] [address] [place] [address] Sports Lawyer: Ramiro Mark MD Platelet mean volume (Bld) [Entitic vol] 10.8 fL Normal 8.1-13.5 [facility] Comment on above: Performed By: #### Andres Arana CHELO, BMP #### [facility] [employer] [address] [place] [address] Sports Lawyer: Ramiro Mark MD Platelets (Bld) [#/Vol] 164 10*3/uL Normal 138-453 [facility] Comment on above: Performed By: #### Andres Arana CHELO, BMP #### [address] [address] Sports Lawyer: Ramiro Mark MD RBC (Bld) [#/Vol] 3.48 10*6/uL Low 4.21-5.77 [facility] Comment on above: Performed By: #### Andres Arana CHELO, BMP #### [address] [address] Sports Lawyer: Ramiro Mark MD WBC (Bld) [#/Vol] 7.4 10*3/uL Normal 3.5-11.3 [facility] Comment on above: Performed By: #### Andres Arana CHELO, BMP #### [facility] [employer] [address] [place] [address] Sports Lawyer: Ramiro Mark MD Cult,CSFon 01-22-2024 Cult,CSF Specimen Description .CSF Direct Exam RARE NEUTROPHILS NO ORGANISMS SEEN Gram stain made from cytocentrifuged specimen. Organisms and cells will be concentrated. Culture NO GROWTH 3 DAYS Report Status FINAL 01/22/2024 Normal [facility] Comment on above: Performed By: #### C FC ####[facility] [place] [address] Lab Director: Ramiro Mark MD Culture, CSFon 01-22-2024 Microorganism identified Cx Nom (Unsp spec) NO GROWTH 3 DAYS [facility] Microorganism or agent identified Nom (Unsp spec) RARE NEUTROPHILS [facility] Microorganism or agent identified Nom (Unsp spec) NO ORGANISMS SEEN [facility] Microorganism or agent identified Nom (Unsp spec) Gram stain made from cytocentrifuged specimen. Organisms and cells will be concentrated. [facility] Specimen Description .CSF [facility] Glucose,Whole Bloodon 2023 Glucose [Mass/Vol] 164 mg/dL High 75-110 [facility] Glucose [Mass/Vol] 293 mg/dL High 75-110 [facility] Glucose [Mass/Vol] 172 mg/dL High 75-110 [facility] HSV DNA, PCRon 01-22-2024 HSV 1 subtype by PCR Not detected Normal [facility] Comment on above: Performed By: #### M G, CHELO, BMP #### [facility] [address] [place] [address] Sports Lawyer: Ramiro Mark MD HSV 2 subtype by PCR Not detected Normal [facility] Comment on above: Result Comment: (NOT E) INTERPRETIVE INFORMATION: HSV-1 and HSV-2 Subtype by PCR A negative result does not rule out the presence of PCR inhibitors in the patient specimen or test-specific nucleic acid in concentrations below the level of detection by this test. This test was developed and its performance characteristics determined by [facility]. It has not been cleared or approved by the [place] Food and Drug Administration. This test was performed in a CLIA certified laboratory and is intended for clinical purposes. Performed By: [facility] [address] [place] [id number] Regional Business Manager: Rogelio Miranda MD, PhD CLIA Number: [id number] Performed By: #### M G, CHELO, [facility] #### [facility] [place] [phone] Sports Lawyer: Ramiro Mark MD Herpes simplex virus PCRon 0 01-22-2024 HSV 1 SUBTYPE BY PCR Not detected [facility] HSV 2 SUBTYPE BY PCR Not detected [facility] HSV Source .CSF [facility] MR Brain WO contraston 01-21 [facility] RIS CONSOLIDATED [facility] RIS CONSOLIDATED [facility] Radiology Study observation (narrative) [facility] MRI BRAIN WO CONTRASTon MRI BRAIN WO CONTRAST EXAMINATION: MRI OF THE BRAIN WITHOUT CONTRAST 01/22/2024 1:08 pm TECHNIQUE: Multiplanar multisequence MRI of the brain was performed without the administration of intravenous contrast. COMPARISON: MRI, January 19, 2024, CT scan January 18, 2024 HISTORY: ORDERING SYSTEM PROVIDED HISTORY: follow up on abnormal MRI from 01/18 TECHNOLOGIST PROVIDED HISTORY: follow up on abnormal MRI from 01/18 Reason for Exam: follow up on abnormal MRI from 01/18 FINDINGS: INTRACRANIAL STRUCTURES/VENTRIC LES: Gyriform cortical based restriction of diffusion in the right posterior frontal, parietal and temporal occipital region has increased from prior examination (with more pronounced high DWI signal and low ADC signal), with interval increase in the T2 FLAIR signal and with associated swelling. There is stable sulcal space hyperintensity in bilateral cerebral convexities. No midline shift. No evidence of an acute intracranial hemorrhage. The ventricles and sulci are normal in size and configuration. The sellar/suprasellar regions appear unremarkable. The normal signal voids within the major intracranial vessels appear maintained. ORBITS: The visualized portion of the orbits demonstrate no acute abnormality. SINUSES: The visualized paranasal sinuses and mastoid air cells demonstrate no acute abnormality. BONES/SOFT TISSUES: The bone marrow signal intensity appears normal. The soft tissues demonstrate no acute abnormality. IMPRESSION: 1. Interval increase in prominence of cortical based restriction in diffusion within the right posterior frontal, parietal and temporal occipital lobe with interval increase in T2 FLAIR signal and swelling. Findings are compatible with acute infarction, less likely to be encephalitis or epilepsy related phenomena. 2. Stable FLAIR hyperintensity in the bilateral cerebral convexities. Perimesencephalic FLAIR hyperintensity has resolved. Correlation with CSF analysis is advised. Interpreted by: Daniel Ramos MD Signed by: Daniel Ramos MD 01/22/24 Final result Normal [facility] Magnesiumon 01-22-2024 Magnesium [Mass/Vol] 2.2 mg/dL Normal 1.6-2.6 [facility] Comment on above: Performed By: #### M Sumit CHELO, BMP #### [employer] [facility] [address] [place] [address] Sports Lawyer: Ramiro Mark MD Magnesium [Mass/Vol] 2.2 mg/dL 1.6 - 2 .6 mg/dL [facility] No Panel Informationon 01-21 [facility] POC Glucose Fingerstickon Glucose [Mass/Vol] 164 mg/dL High 75 - 110 mg/dL [facility] Interpretation and review of laboratory results Abnormal [facility] Glucose [Mass/Vol] 293 mg/dL High 75 - 110 mg/dL [facility] Interpretation and review of laboratory results Abnormal [facility] Glucose [Mass/Vol] 172 mg/dL High 75 - 110 mg/dL [facility] Interpretation and review of laboratory results Abnormal [facility] Phosphoruson 01-22-2024 Phosphate [Mass/Vol] 3.2 mg/dL 2.5 - 4 .5 mg/dL [facility] Phosphorus, Inorg.on 024 Phosphorus, Inorg. 3.2 mg/dL Normal 2.5-4.5 [facility] Comment on above: Performed By: #### M G, CHELO, BMP #### [employer] [facility] [address] [place] [address] Sports Lawyer: Ramiro Mark MD Basic Metabolic Panelon Anion gap [Moles/Vol] 13 mmol/L 9 - 16 mmol/L [facility] Calcium [Mass/Vol] 7.9 mg/dL Low 8.6 - 10. 4 mg/dL [facility] Chloride [Moles/Vol] 105 mmol/L 98 - 10 7 mmol/L [facility] CO2 [Moles/Vol] 18 mmol/L Low 20 - 31 mmol/L [facility] Creatinine [Mass/Vol] 1.5 mg/dL High 0.70 - 1.20 mg/dL [facility] GFR/1.73 sq M.predicted MDRD (S/P/Bld) [Vol rate/Area] 58 mL/min/{1.73_m2} Low - PINF [facility] Glucose [Mass/Vol] 287 mg/dL High 74 - 99 mg/dL [facility] Interpretation and review of laboratory results Abnormal [facility] Potassium [Moles/Vol] 4.2 mmol/L 3.7 - 5.3 mmol/L [facility] Sodium [Moles/Vol] 136 mmol/L 136 - 145 mmol/L [facility] Urea nitrogen [Mass/Vol] 29 mg/dL High 6 - 20 mg/d L [facility] Basic Metabolic Profon 01-20 Anion gap [Moles/Vol] 13 mmol/L Normal 9-16 [facility] Comment on above: Performed By: #### M G, CDP, CHELO, BMP ####[facility] [address] [place] [address] [facility] Director: Ramiro Mark MD Calcium [Mass/Vol] 7.9 mg/dL Low 8.6-10.4 [facility] Comment on above: Performed By: #### M G, CDP, CHELO, BMP ####[employer] [address] [place] [address] lab Director: Ramiro Mark MD Chloride [Moles/Vol] 105 mmol/L Normal 98-107 [facility] Comment on above: Performed By: #### M G, CDP, CHELO, BMP ####[facility] [address] [place] [address] Lab Director: Ramiro Mark MD CO2 [Moles/Vol] 18 mmol/L Low 20-31 [facility] Comment on above: Performed By: #### M G, CDP, CHELO, BMP ####[facility] [address] [place] [address] Lab Director: Ramiro Mark MD Creatinine [Mass/Vol] 1.5 mg/dL High 0.70-1.20 [facility] Comment on above: Performed By: #### M G, CDP, CHELO, BMP ####[facility] [address] [place], [place] [phone] Director: Ramiro Mark MD GFR/1.73 sq M.predicted among non-blacks MDRD (S/P/Bld) [Vol rate/Area] 58 mL/min/{1.73_m2} Low >60 [facility] Comment on above: Result Comment: These results are not intended for use in patients <18 years of age. eGFR results are calculated without a race factor using the 2020 CKD-EPI equation. Careful clinical correlation is recommended, particularly when comparing to results calculated using previous equations. The CKD-EPI equation is less accurate in patients with extremes of muscle mass, extra-renal metabolism of creatine, excessive creatine ingestion, or following therapy that affects renal tubular secretion. Performed By: #### M G, CDP, CHELO, BMP ####[facility] [address] [place] [address] Lab Director: Ramiro Mark MD Glucose [Mass/Vol] 287 mg/dL High 74-99 [facility] Comment on above: Performed By: #### M G, CDP, CHELO, BMP ####[facility] [address] [place] [address] Lab Director: Ramiro Mark MD Potassium [Moles/Vol] 4.2 mmol/L Normal 3.7-5.3 [facility] Comment on above: Performed By: #### M G, CDP, CHELO, BMP ####[facility] [address] [place] [address] Lab Director: Ramiro Mark MD Sodium [Moles/Vol] 136 mmol/L Normal 136-145 [facility] Comment on above: Performed By: #### M G, CDP, CHELO, BMP ####[facility] [address] [place] [address] lab Director: Ramiro Mark MD Urea nitrogen [Mass/Vol] 29 mg/dL High 6-20 [facility] Comment on above: Performed By: #### M G, CDP, CHELO, BMP ####[facility] [address] [place] [address] lab Director: Ramiro Mark MD CBC with Auto Differentialon 01-21-2024 Basophils (Bld) [#/Vol] 0.03 10*3/uL [facility] Basophils/100 WBC (Bld) 0 % 0 - 2 % B ON [facility] Eosinophils (Bld) [#/Vol] 0.06 10*3/uL [facility] Eosinophils/100 WBC (Bld) 1 % 1 - 4 % [facility] Erythrocyte distribution width (RBC) [Ratio] 14.2 % 11.8 - 14.4 % [facility] Hematocrit (Bld) [Volume fraction] 31.9 % Low 40.7 - 50.3 % [facility] Hemoglobin (Bld) [Mass/Vol] 10.3 g/dL Low 13.0 - 17.0 g/dL [facility] Immature granulocytes (Bld) [#/Vol] 0.03 10*3/uL [facility] Immature granulocytes/100 WBC (Bld) 0 % 0 [facility] Interpretation and review of laboratory results Abnormal [facility] Lymphocytes/100 WBC (Bld) 14 % Low 24 - 43 % [facility] Lymphocytes/100 WBC (Bld) 1.29 % [facility] MCH (RBC) [Entitic mass] 29.3 pg 25. 2 - 33.5 pg [facility] MCHC (RBC) [Mass/Vol] 32.3 g/dL 28.4 - 34.8 g/dL [facility] MCV (RBC) [Entitic vol] 90.6 fL 82.6 - 102.9 fL [facility] Monocytes/100 WBC (Bld) 8 % 3 - 12 % B ON [facility] Monocytes/100 WBC (Bld) 0.70 % B ON [facility] Neutrophils/100 WBC (Bld) 77 % High 36 - 65 % [facility] Nucleated RBC/100 WBC (Bld) [Ratio] 0.0 % 0.0 per 100 WBC [facility] Platelet mean volume (Bld) [Entitic vol] 10.7 fL 8.1 - 13.5 fL [facility] Platelets (Bld) [#/Vol] 162 10*3/uL [facility] RBC (Bld) [#/Vol] 3.52 10*6/uL Low 4.21 - 5.7 7 m/uL [facility] Segmented neutrophils/100 WBC (Bld) 7.13 % [facility] WBC other (Bld) [#/Vol] 9.2 B ON [facility] CBC with Diffon 01-21-2024 Abs. Basophil 0.03 k/uL Normal 0.00-0.20 [facility] Comment on above: Performed By: #### M Sumit, CHIQUI, CHLEO, BMP ####[employer] [address] [place] [address] Lab Director: Ramiro Mark MD Abs.Imm.Granulocyte 0.03 k/uL Normal 0.00-0.30 [facility] Comment on above: Performed By: #### M Sumit, CDP, CHELO, BMP ####[employer] [address] [place], [place] [id number] lab Director: Ramiro Mark MD Abs.Neutrophil (Seg) 7.13 k/uL Normal 1.50-8.10 [facility] Comment on above: Performed By: #### M G, CDP, CHELO, BMP ####[facility] [address] [place] [address])[phone] Director: Ramiro Mark MD Basophils/100 WBC (Bld) 0 % Normal 0-2 [facility] Comment on above: Performed By: #### M G, CDP, CHELO, BMP ####[facility] [address] [place] [address])[phone] Director: Ramiro Makr MD Eosinophils (Bld) [#/Vol] 0.06 10*3/uL Normal 0.00-0.4 4 [facility] Comment on above: Performed By: #### M G, CDP, CHELO, BMP ####[place], [place] [address])[phone] Director: Ramiro Mark MD Eosinophils/100 WBC (Bld) 1 % Normal 1-4 [facility] Comment on above: Performed By: #### M G, CDP, CHELO, BMP ####[facility] [address] [place], [place] [address])[phone] Director: Ramiro Mark MD Erythrocyte distribution width (RBC) [Ratio] 14.2 % Normal 11.8-14.4 [facility] Comment on above: Performed By: #### M G, CDP, CHELO, BMP ####[facility] [address] [place], [place] [address])[phone] Director: Ramiro Mark MD Hematocrit (Bld) [Volume fraction] 31.9 % Low 40.7-50.3 [facility] Comment on above: Performed By: #### M G, CDP, CHELO, BMP ####[facility] [address] [place], [place] [address])[phone] Director: Ramiro Mark MD Hemoglobin (Bld) [Mass/Vol] 10.3 g/dL Low 13.0-17. 0 [facility] Comment on above: Performed By: #### M G, CDP, CHELO, BMP ####[place], [place] [address])[phone] Director: Ramiro Mark MD Immature granulocytes/100 WBC (Bld) 0 % Normal 0 [facility] Comment on above: Performed By: #### M G, CDP, CHELO, BMP ####[place], [place] [address])[phone] Director: Ramiro Mark MD Lymphocytes (Bld) [#/Vol] 1.29 10*3/uL Normal 1.10-3.7 0 [facility] Comment on above: Performed By: #### M G, CDP, CHELO, BMP ####[place], [place] [address])[phone] Director: Ramiro Mark MD Lymphocytes/100 WBC (Bld) 14 % Low 24-43 [facility] Comment on above: Performed By: #### M G, CDP, CHELO, BMP ####[place], [place] [address])[phone] Director: Ramiro Mark MD MCH (RBC) [Entitic mass] 29.3 pg Normal 25.2-33.5 [facility] Comment on above: Performed By: #### M G, CDP, CHELO, BMP ####[facility] [address] [place], [place] [address])[phone] Director: Ramiro Mark MD MCHC (RBC) [Mass/Vol] 32.3 g/dL Normal 28.4-34.8 [facility] Comment on above: Performed By: #### M G, CDP, CHELO, BMP ####[facility] [address] [place] [address] [id number])[phone] Director: Ramiro Mrak MD MCV (RBC) [Entitic vol] 90.6 fL Normal 82.6-102.9 M [facility] Comment on above: Performed By: #### M G, CDP, CHELO, BMP ####[facility] [address] [place] [address])[phone] Director: Ramiro Mark MD Monocytes (Bld) [#/Vol] 0.70 10*3/uL Normal 0.10-1.20 [facility] Comment on above: Performed By: #### M G, CDP, CHELO, BMP ####[facility] [address] [place] [address] [id number])[phone] Director: Ramiro Mark MD Monocytes/100 WBC (Bld) 8 % Normal 3-12 M [facility] Comment on above: Performed By: #### M G, CDP, CHELO, BMP ####[address] [address])[phone] Director: Ramiro Mark MD Neutrophil (Seg) 77 % High 36-65 [facility] Comment on above: Performed By: #### M G, CDP, CHELO, BMP ####[facility] [address] [place] [address])[phone] Director: Ramiro Mark MD NRBC Automated 0.0 per 100 WBC Normal 0.0 [facility] Comment on above: Performed By: #### M G, CDP, CHELO, BMP ####[facility] [id number] [place] [id number])[phone] Director: Ramiro Mark MD Platelet mean volume (Bld) [Entitic vol] 10.7 fL Normal 8.1-13.5 [facility] Comment on above: Performed By: #### M G, CDP, CHELO, BMP ####[facility] [address] [place], [place] [phone] Director: Ramiro Mark MD Platelets (Bld) [#/Vol] 162 10*3/uL Normal 138-453 [facility] Comment on above: Performed By: #### M G, CDP, CHELO, BMP ####[facility] [address] [place] [address] Lab Director: Ramiro Mark MD RBC (Bld) [#/Vol] 3.52 10*6/uL Low 4.21-5.77 [facility] Comment on above: Performed By: #### M G, CDP, CHELO, BMP ####[facility] [address] [place] [address] lab Director: Ramiro Mark MD WBC (Bld) [#/Vol] 9.2 10*3/uL Normal 3.5-11.3 [facility] Comment on above: Performed By: #### M G, CDP, CHELO, BMP ####[facility] [address] [place] [address] lab Director: Ramiro Mark MD Cardiac echo study Procedure Ordered By: Christopher Cochran on 01-21-2024 Ao Root Index 1.57 cm/m2 [employer] Phone: Aortic Root 3.3 cm [employer] Phone: AV Area by Peak Velocity 2.4 cm2 [employer] Phone: AV Area by VTI 2.4 cm2 Fantrotter Phone: AV Mean Gradient 4 mmHg Thumbs Up Phone: AV Mean Velocity 0.9 m/s SonosO Storific Phone: AV Peak Gradient 7 mmHg Thumbs Up Phone: AV Peak Velocity 1.4 m/s Son[employer] Phone: AV Velocity Ratio 0.71 Meilele Phone: AV VTI 27.9 cm [employer] Phone: EZIO/BSA Peak Velocity 1.1 cm2/m2 SHARON [employer] Work Phone: EZIO/BSA VTI 1.1 cm2/m2 SHARON [employer]er Phone: Body surface area Derived from formula 2.13 m2 SHARON [employer] Phone: E/E' Lateral 12.17 SHARON [employer] Phone: E/E' Ratio (Averaged) 10.65 SHARON [employer] Work Phone: Est. RA Pressure 8 mmHg SHARON BlinkitSaranya WILDER [place] [employer] Work Phone: Fractional Shortening 2D 20 % 28 - 44 % SHARON [employer] Phone: Interpretation and review of laboratory results Abnormal BON BlinkitCURTIS Slaughter [employer] Work Phone: IVSd 1.5 cm Abnormal 0.6 - 1.0 cm SHARON [employer] Work Phone: LA Area 2C 13.9 cm2 [employer] Work Phone: LA Area 4C 16.0 cm2 [employer] Phone: LA Diameter 3.5 cm SHARON [employer] Phone: LA Major Lachine 4.6 cm [employer] Work Phone: LA Minor Lachine 4.3 cm SHARON [employer] Phone: LA Size Index 1.67 cm/m2 [employer] Phone: LA Volume BP 41 mL 18 - 58 mL [employer] Work Phone: LA Volume Index BP 20 ml/m2 16 - 34 ml/m2 [employer] Work Phone: LA Volume Index MOD A2C 19 ml/m2 16 - 34 ml/m2 [employer] Work Phone: LA Volume Index MOD A4C 20 ml/m2 16 - 34 ml/m2 [employer] Work Phone: LA Volume MOD A2C 39 mL 18 - 58 mL [employer] Work Phone: LA Volume MOD A4C 42 mL 18 - 58 mL [employer] Work Phone: LA/AO Root Ratio 1.06 BON [employer] Work Phone: LV E' Lateral Velocity 6 cm/s BRUNO Petta Work Phone: LV E' Septal Velocity 8 cm/s [employer] Work Phone: LV EDV A2C 73 mL [employer] Work Phone: LV EDV A4C 83 mL [employer] Work Phone: LV EDV Index A2C 35 mL/m2 Sh[employer]pton Work Phone: LV EDV Index A4C 40 mL/m2 [employer] Work Phone: LV Ejection Fraction A2C 58 % [employer] Work Phone: LV Ejection Fraction A4C 51 % [employer] Work Phone: LV ESV A2C 31 mL [employer] Work Phone: LV ESV A4C 40 mL [employer] Work Phone: LV ESV Index A2C 15 mL/m2 [employer] Work Phone: LV ESV Index A4C 19 mL/m2 [employer] Work Phone: LV Mass 2D 220.7 g 88 - 224 g [employer] Work Phone: LV Mass 2D Index 105.1 g/m2 49 - 115 g/m2 [employer] Work Phone: LV RWT Ratio 0.70 [employer] Phone: LVIDd 4.0 cm Abnormal 4.2 - 5.9 cm [employer] Phone: LVIDd Index 1.90 cm/m2 [employer] Phone: LVIDs 3.2 cm [employer] Phone: LVIDs Index 1.52 cm/m2 [employer] Phone: LVOT Area 3.5 cm2 [employer] Phone: LVOT Diameter 2.1 cm [employer] Phone: LVOT Mean Gradient 2 mmHg BON [employer] Work Phone: LVOT Peak Gradient 4 mmHg BON [employer] Work Phone: LVOT Peak Velocity 1.0 m/s [facility] [employer] Phone: LVOT Stroke Volume Index 32.5 mL/m2 [employer] Phone: LVOT SV 68.2 ml [employer] Phone: LVOT VTI 19.7 cm [employer] Phone: LVOT:AV VTI Index 0.71 Meilele Phone: LVPWd 1.4 cm Abnormal 0.6 - 1.0 cm [employer] Phone: MV A Velocity 0.69 m/s [employer] Phone: MV Area by VTI 3.0 cm2 SHARON SECCURTIS S [employer] Work Phone: [phone] MV E Velocity 0.73 m/s SH[facility]ON [facility] Work Phone: MV E Wave Deceleration Time 155.0 ms [facility] Work Phone: MV E/A 1.06 SHARON SECJAKE [employer] [facility] Work Phone: MV Max Velocity 0.9 m/s BON SECOU RS [facility] [facility] Work Phone: MV Mean Gradient 2 mmHg BON SECO URS [employer] Work Phone: MV Mean Velocity 0.6 m/s BON SECO URS [employer] [facility] Work Phone: MV Peak Gradient 3 mmHg BON SECO URS [employer] Work Phone: [phone] MV VTI 22.7 cm SHARON SECJAKE [facility] Work Phone: MV:LVOT VTI Index 1.15 BON SEC JAKE [facility] Work Phone: PV Max Velocity 0.9 m/s SHARON SECOU RS [employer] Work Phone: PV Peak Gradient 3 mmHg BON SECO URS [employer] Work Phone: RV Basal Dimension 3.8 cm BON SE COURS [facility] Work Phone: RV Free Wall Peak S' 17 cm/s BON SECJAKE [facility] Work Phone: RVSP 40 mmHg BON SECJAKE [facility] Work Phone: [phone] TAPSE 3.1 cm 1.7 cm BON SECJAKE [facility] [facility] Work Phone: TR Max Velocity 2.82 m/s BON SECOU RS [facility] [facility] Work Phone: TR Peak Gradient 32 mmHg BON SECO URS [employer] Work Phone: BON SECJAKE [employer] Work Phone: Cardiac echo study Procedure on 01-21-2024 [facility] CV CPACS Radiology Study observation (narrative) [facility] Glucose,Whole Bloodon 2023 Glucose [Mass/Vol] 195 mg/dL High 75-110 [facility] Glucose [Mass/Vol] 237 mg/dL High 75-110 [facility] Glucose [Mass/Vol] 205 mg/dL High 75-110 [facility] Glucose [Mass/Vol] 237 mg/dL High 75-110 [facility] Glucose [Mass/Vol] 248 mg/dL High 75-110 [facility] Lyme Disease AB, CSFon 01-20 B. burgdorferi Ab IA Qn (CSF) 0.08 NINF [facility] Lyme Disease Ab,CSFon 2023 B burgdorferi Ab,CSF 0.08 IV Normal <=0.90 [facility] Comment on above: Result Comment: (NOT E) When Borrelia burgdorferi VlsE1/pepC10 assay is negative further testing is not recommended and will not be performed. REFERENCE INTERVAL: B. burgdorferi VlsE1/pepC10 Abs, CSF 0.90 IV or less ....... Negative - VlsE1 and pepC10 antibodies to B. burgdorferi not detected. 0.91-1.09 IV .......... Equivocal - Repeat testing in 10-14 days may be helpful. 1.10 IV or greater .... Positive - VlsE1 and pepC10 antibodies to B. burgdorferi detected. The detection of antibodies to Borrelia burgdorferi in cerebrospinal fluid may indicate central nervous system infection. However, consideration must be given to possible contamination by blood or transfer of serum antibodies across the blood-brain barrier. Lyme disease diagnosis in serum is recommended prior to any CSF studies. This test was developed and its performance characteristics determined by [facility]. It has not been cleared or approved by the [place] Food and Drug Administration. This test was performed in a CLIA certified laboratory and is intended for clinical purposes. Performed By: [facility] [address] [place] [id number] Regional Business Manager: Rogelio Miranda MD, PhD CLIA Number: [id number] Performed By: #### C TP, CGLU, CFVD, MEVP, CFCNT ####[facility] [address] [place], [place] [id number] Lab Director: Ramiro Mark MD#### ALBETZAIDA, AWNCSF ####[facility] [address] [place] [address] lab Director: Wil Swanson MD Magnesiumon 01-21-2024 Magnesium [Mass/Vol] 1.9 mg/dL Normal 1.6-2.6 [facility] Comment on above: Performed By: #### M G, CDP, CHELO, BMP ####[facility] [address] [place], [place] [id number] lab Director: Ramiro Mark MD Magnesium [Mass/Vol] 1.9 mg/dL 1.6 - 2 .6 mg/dL [facility] No Panel Informationon 01-20 [facility] POC Glucose Fingerstickon Glucose [Mass/Vol] 195 mg/dL High 75 - 110 mg/dL [facility] Interpretation and review of laboratory results Abnormal [facility] Glucose [Mass/Vol] 237 mg/dL High 75 - 110 mg/dL [facility] Interpretation and review of laboratory results Abnormal [facility] Glucose [Mass/Vol] 205 mg/dL High 75 - 110 mg/dL [facility] Interpretation and review of laboratory results Abnormal [facility] Glucose [Mass/Vol] 237 mg/dL High 75 - 110 mg/dL [facility] Interpretation and review of laboratory results Abnormal [facility] Glucose [Mass/Vol] 248 mg/dL High 75 - 110 mg/dL [facility] Interpretation and review of laboratory results Abnormal [facility] Phosphoruson 01-21-2024 Phosphate [Mass/Vol] 3.9 mg/dL 2.5 - 4 .5 mg/dL [facility] [employer] Phosphorus, Inorg.on 024 Phosphorus, Inorg. 3.9 mg/dL Normal 2.5-4.5 [facility] Comment on above: Performed By: #### M G, CDP, CHELO, BMP ####[facility] [address] [place] [id number] [facility] Director: Ramiro Mark MD Arterial Bld Gas,POCon 01-19 Jody Test Positive Normal [facility] FIO2 30.0 Normal [facility] HCO3 (Bld) [Moles/Vol] 22.4 mmol/L Normal 21.0-28.0 [facility] Negative Base Excess (calc) 1.3 mmol/L Normal 0.0-2.0 [facility] O2 Device Adult Ventilator Normal [facility] Oxygen saturation in Blood 99.2 % High 94.0-98.0 [facility] pCO2, Arterial 32.5 mm Hg Low 35.0-48.0 [facility] pH, Arterial 7.446 Normal 7.350-7.450 [facility] pO2, Arterial 135.0 mm Hg High 83.0-108.0 [facility] Site Drawn Right Radial Artery Normal [facility] Arterial Blood Gas, POCon Jody Test Positive [facility] FIO2 30.0 [facility] [employer] HCO3 (Bld) [Moles/Vol] 22.4 mmol/L 21.0 - 28.0 mmol/L [facility] Negative Base Excess, Art 1.3 mmol/L 0. 0 - 2.0 mmol/L [facility] [employer] O2 Delivery Device Adult Ventilator [facility] [employer] Oxygen saturation in Blood 99.2 % High 9 4.0 - 98.0 % [facility] [employer] POC pCO2 32.5 Low [facility] [employer] POC pH 7.446 7.350 - 7.450 [facility] [employer] POC PO2 135.0 High [facility] [employer] Sample Site Right Radial Artery [facility] [employer] Basic Metabolic Panelon 04-0 Anion gap [Moles/Vol] 12 mmol/L 9 - 16 mmol/L [facility] Calcium [Mass/Vol] 8.0 mg/dL Low 8.6 - 10. 4 mg/dL [facility] Chloride [Moles/Vol] 107 mmol/L 98 - 10 7 mmol/L [facility] CO2 [Moles/Vol] 16 mmol/L Low 20 - 31 mmol/L [facility] Creatinine [Mass/Vol] 1.5 mg/dL High 0.70 - 1.20 mg/dL [facility] GFR/1.73 sq M.predicted MDRD (S/P/Bld) [Vol rate/Area] 55 mL/min/{1.73_m2} Low - PINF [facility] Glucose [Mass/Vol] 211 mg/dL High 74 - 99 mg/dL [facility] Potassium [Moles/Vol] 4.0 mmol/L 3.7 - 5.3 mmol/L [facility] Sodium [Moles/Vol] 135 mmol/L Low 136 - 145 mmol/L [facility] Urea nitrogen [Mass/Vol] 32 mg/dL High 6 - 20 mg/d L [facility] Anion gap [Moles/Vol] 13 mmol/L 9 - 16 mmol/L [facility] Calcium [Mass/Vol] 8.3 mg/dL Low 8.6 - 10. 4 mg/dL [facility] Chloride [Moles/Vol] 106 mmol/L 98 - 10 7 mmol/L [facility] CO2 [Moles/Vol] 18 mmol/L Low 20 - 31 mmol/L [facility] Creatinine [Mass/Vol] 1.6 mg/dL High 0.70 - 1.20 mg/dL [facility] GFR/1.73 sq M.predicted MDRD (S/P/Bld) [Vol rate/Area] 51 mL/min/{1.73_m2} Low - PINF [facility] Glucose [Mass/Vol] 244 mg/dL High 74 - 99 mg/dL [facility] Potassium [Moles/Vol] 4.4 mmol/L 3.7 - 5.3 mmol/L [facility] Sodium [Moles/Vol] 137 mmol/L 136 - 145 mmol/L [facility] Urea nitrogen [Mass/Vol] 33 mg/dL High 6 - 20 mg/d L [facility] Anion gap [Moles/Vol] 10 mmol/L 9 - 16 mmol/L [facility] Calcium [Mass/Vol] 7.6 mg/dL Low 8.6 - 10. 4 mg/dL [facility] Chloride [Moles/Vol] 106 mmol/L 98 - 10 7 mmol/L [facility] CO2 [Moles/Vol] 20 mmol/L 20 - 31 mmol/L [facility] Creatinine [Mass/Vol] 1.6 mg/dL High 0.70 - 1.20 mg/dL [facility] GFR/1.73 sq M.predicted MDRD (S/P/Bld) [Vol rate/Area] 51 mL/min/{1.73_m2} Low - PINF [facility] Glucose [Mass/Vol] 186 mg/dL High 74 - 99 mg/dL [facility] Interpretation and review of laboratory results Abnormal [facility] Potassium [Moles/Vol] 4.0 mmol/L 3.7 - 5.3 mmol/L [facility] Sodium [Moles/Vol] 136 mmol/L 136 - 145 mmol/L [facility] Urea nitrogen [Mass/Vol] 39 mg/dL High 6 - 20 mg/d L [facility] Anion gap [Moles/Vol] 9 mmol/L 9 - 16 mmol/L [facility] Calcium [Mass/Vol] 7.9 mg/dL Low 8.6 - 10. 4 mg/dL [facility] Chloride [Moles/Vol] 105 mmol/L 98 - 10 7 mmol/L [facility] CO2 [Moles/Vol] 21 mmol/L 20 - 31 mmol/L [facility] Creatinine [Mass/Vol] 1.6 mg/dL High 0.70 - 1.20 mg/dL [facility] GFR/1.73 sq M.predicted MDRD (S/P/Bld) [Vol rate/Area] 51 mL/min/{1.73_m2} Low - PINF [facility] [employer] Glucose [Mass/Vol] 180 mg/dL High 74 - 99 mg/dL [facility] Interpretation and review of laboratory results Abnormal [facility] Potassium [Moles/Vol] 4.3 mmol/L 3.7 - 5.3 mmol/L [facility] Sodium [Moles/Vol] 135 mmol/L Low 136 - 145 mmol/L [facility] Urea nitrogen [Mass/Vol] 41 mg/dL High 6 - 20 mg/d L [facility] Anion gap [Moles/Vol] 10 mmol/L 9 - 16 mmol/L [facility] Calcium [Mass/Vol] 8.1 mg/dL Low 8.6 - 10. 4 mg/dL [facility] Chloride [Moles/Vol] 106 mmol/L 98 - 10 7 mmol/L [facility] CO2 [Moles/Vol] 21 mmol/L 20 - 31 mmol/L [facility] Creatinine [Mass/Vol] 1.6 mg/dL High 0.70 - 1.20 mg/dL [facility] GFR/1.73 sq M.predicted MDRD (S/P/Bld) [Vol rate/Area] 51 mL/min/{1.73_m2} Low - PINF [facility] Glucose [Mass/Vol] 135 mg/dL High 74 - 99 mg/dL [facility] Interpretation and review of laboratory results Abnormal [facility] Potassium [Moles/Vol] 4.0 mmol/L 3.7 - 5.3 mmol/L [facility] Sodium [Moles/Vol] 137 mmol/L 136 - 145 mmol/L [facility] Urea nitrogen [Mass/Vol] 40 mg/dL High 6 - 20 mg/d L [facility] Basic Metabolic Profon 01-19 Anion gap [Moles/Vol] 12 mmol/L Normal 9-16 [facility] Comment on above: Performed By: #### M G, CHELO, BMP #### [employer] [facility] [place] [address] Sports Lawyer: Ramiro Mark MD Calcium [Mass/Vol] 8.0 mg/dL Low 8.6-10.4 [facility] Comment on above: Performed By: #### M G, CHELO, BMP #### [facility] [address] [place] [phone] Sports Lawyer: Ramiro Mark MD Chloride [Moles/Vol] 107 mmol/L Normal 98-107 [facility] Comment on above: Performed By: #### M G, CHELO, BMP #### [facility] [address] [place] [phone] Sports Lawyer: Ramiro Mark MD CO2 [Moles/Vol] 16 mmol/L Low 20-31 [facility] Comment on above: Performed By: #### M Sumit, CHELO, BMP #### [facility] [address] [place] [address] Sports Lawyer: Ramiro Mark MD Creatinine [Mass/Vol] 1.5 mg/dL High 0.70-1.20 [facility] Comment on above: Performed By: #### M G, CHELO, BMP #### [facility] [employer] [address] [place] [phone] Sports Lawyer: Ramiro Mark MD GFR/1.73 sq M.predicted among non-blacks MDRD (S/P/Bld) [Vol rate/Area] 55 mL/min/{1.73_m2} Low >60 [facility] Comment on above: Result Comment: These results are not intended for use in patients <18 years of age. eGFR results are calculated without a race factor using the 2020 CKD-EPI equation. Careful clinical correlation is recommended, particularly when comparing to results calculated using previous equations. The CKD-EPI equation is less accurate in patients with extremes of muscle mass, extra-renal metabolism of creatine, excessive creatine ingestion, or following therapy that affects renal tubular secretion. Performed By: #### M G, CHELO, BMP #### [facility] [address] [place] [address] Sports Lawyer: Ramiro Mark MD Glucose [Mass/Vol] 211 mg/dL High 74-99 [facility] Comment on above: Performed By: #### M G, CHELO, BMP #### [facility] [address] [place] [address] Sports Lawyer: Ramiro Mark MD Potassium [Moles/Vol] 4.0 mmol/L Normal 3.7-5.3 [facility] Comment on above: Performed By: #### M G, CHELO, BMP #### [facility] [address] [place] [address] Sports Lawyer: Ramiro Mark MD Sodium [Moles/Vol] 135 mmol/L Low 136-145 [facility] Comment on above: Performed By: #### M G, CHELO, BMP #### [facility] [address] [place] [phone] Sports Lawyer: Ramiro Mark MD Urea nitrogen [Mass/Vol] 32 mg/dL High 6-20 [facility] Comment on above: Performed By: #### M G, CHELO, BMP #### [facility] [address] [place] [phone] Sports Lawyer: Ramiro Mark MD Anion gap [Moles/Vol] 13 mmol/L Normal 9-16 [facility] Comment on above: Performed By: #### M G, CHELO, BMP #### [facility] [address] [place] [address] Sports Lawyer: Ramiro Mark MD Calcium [Mass/Vol] 8.3 mg/dL Low 8.6-10.4 [facility] Comment on above: Performed By: #### M G, CHELO, BMP #### [facility] [address] [place] [address] Sports Lawyer: Ramiro Mark MD Chloride [Moles/Vol] 106 mmol/L Normal 98-107 [facility] Comment on above: Performed By: #### M G, CHELO, BMP #### [facility] [address] [place] [address] Sports Lawyer: Ramiro Mark MD CO2 [Moles/Vol] 18 mmol/L Low 20-31 [facility] Comment on above: Performed By: #### M G, CHELO, BMP #### [facility] [address] [place] [address] Sports Lawyer: Ramiro Mark MD Creatinine [Mass/Vol] 1.6 mg/dL High 0.70-1.20 [facility] Comment on above: Performed By: #### M G, CHELO, BMP #### [facility] [address] [place] [phone] Sports Lawyer: Ramiro Mark MD GFR/1.73 sq M.predicted among non-blacks MDRD (S/P/Bld) [Vol rate/Area] 51 mL/min/{1.73_m2} Low >60 [facility] Comment on above: Result Comment: These results are not intended for use in patients <18 years of age. eGFR results are calculated without a race factor using the 2020 CKD-EPI equation. Careful clinical correlation is recommended, particularly when comparing to results calculated using previous equations. The CKD-EPI equation is less accurate in patients with extremes of muscle mass, extra-renal metabolism of creatine, excessive creatine ingestion, or following therapy that affects renal tubular secretion. Performed By: #### M G, CHELO, BMP #### [facility] [address] [place] [address] Sports Lawyer: Ramiro Mark MD Glucose [Mass/Vol] 244 mg/dL High 74-99 [facility] Comment on above: Performed By: #### M G, CHELO, BMP #### [facility] [address] [place] [address] Sports Lawyer: Ramiro Mark MD Potassium [Moles/Vol] 4.4 mmol/L Normal 3.7-5.3 [facility] Comment on above: Performed By: #### Andres Arana CHELO, BMP #### [facility] [employer] [address] [place] [address] Sports Lawyer: Ramiro Mark MD Sodium [Moles/Vol] 137 mmol/L Normal 136-145 [facility] Comment on above: Performed By: #### Andres Arana CHELO, BMP #### [facility] [employer] [address] [place] [address] Sports Lawyer: Ramiro Mark MD Urea nitrogen [Mass/Vol] 33 mg/dL High 6-20 [facility] Comment on above: Performed By: #### CHELO Purcell, BMP #### [address] [address] Sports Lawyer: Ramiro Mark MD Anion gap [Moles/Vol] 10 mmol/L Normal 9-16 [facility] Comment on above: Performed By: #### D AU #### [address] [address] Sports Lawyer: Ramiro Mark MD Calcium [Mass/Vol] 7.6 mg/dL Low 8.6-10.4 [facility] Comment on above: Performed By: #### D AU #### [address] [address] Sports Lawyer: Ramiro Mark MD Chloride [Moles/Vol] 106 mmol/L Normal 98-107 [facility] Comment on above: Performed By: #### D AU #### [address] [address] Sports Lawyer: Ramiro Mark MD CO2 [Moles/Vol] 20 mmol/L Normal 20-31 [facility] Comment on above: Performed By: #### D AU #### [facility] [employer] [address] [place] [address] Sports Lawyer: Ramiro Mark MD Creatinine [Mass/Vol] 1.6 mg/dL High 0.70-1.20 [facility] Comment on above: Performed By: #### D AU #### [address] [address] Sports Lawyer: Ramiro Mark MD GFR/1.73 sq M.predicted among non-blacks MDRD (S/P/Bld) [Vol rate/Area] 51 mL/min/{1.73_m2} Low >60 [facility] Comment on above: Result Comment: These results are not intended for use in patients <18 years of age. eGFR results are calculated without a race factor using the 2020 CKD-EPI equation. Careful clinical correlation is recommended, particularly when comparing to results calculated using previous equations. The CKD-EPI equation is less accurate in patients with extremes of muscle mass, extra-renal metabolism of creatine, excessive creatine ingestion, or following therapy that affects renal tubular secretion. Performed By: #### D AU #### [facility] [employer] [address] [place] [phone] Sports Lawyer: Ramiro Mark MD Glucose [Mass/Vol] 186 mg/dL High 74-99 [facility] Comment on above: Performed By: #### D AU #### [facility] [employer] [address] [place] [phone] Sports Lawyer: Ramiro Mark MD Potassium [Moles/Vol] 4.0 mmol/L Normal 3.7-5.3 [facility] Comment on above: Performed By: #### D AU #### [facility] [employer] [address] [place] [phone] Sports Lawyer: Ramiro Mark MD Sodium [Moles/Vol] 136 mmol/L Normal 136-145 [facility] Comment on above: Performed By: #### D AU #### [facility] [employer] [address] [place], [place] [phone] Sports Lawyer: Ramiro Mark MD Urea nitrogen [Mass/Vol] 39 mg/dL High 6-20 [facility] Comment on above: Performed By: #### D AU #### [facility] [address] [place] [address] Sports Lawyer: Ramiro Mark MD Anion gap [Moles/Vol] 9 mmol/L Normal 9-16 [facility] Comment on above: Performed By: #### C DP, VNCR, MG, TRIG, CHELO, BMP ####[facility] [address] [place] [address] Lab Director: Ramiro Mark MD Calcium [Mass/Vol] 7.9 mg/dL Low 8.6-10.4 [facility] Comment on above: Performed By: #### C DP, VNCR, MG, TRIG, CHELO, BMP ####[facility] [address] [place] [address])[phone] Director: Ramiro Mark MD Chloride [Moles/Vol] 105 mmol/L Normal 98-107 [facility] Comment on above: Performed By: #### C DP, VNCR, MG, TRIG, CHELO, BMP ####[facility] [address] [place] [address] Lab Director: Ramiro Mark MD CO2 [Moles/Vol] 21 mmol/L Normal 20-31 [facility] Comment on above: Performed By: #### C DP, VNCR, MG, TRIG, CHELO, BMP ####[facility] [address] [place] [address] Lab Director: Ramiro Mark MD Creatinine [Mass/Vol] 1.6 mg/dL High 0.70-1.20 [facility] Comment on above: Performed By: #### C DP, VNCR, MG, TRIG, CHELO, BMP ####[facility] [address] [place] [address] Lab Director: Ramiro Mark MD GFR/1.73 sq M.predicted among non-blacks MDRD (S/P/Bld) [Vol rate/Area] 51 mL/min/{1.73_m2} Low >60 [facility] Comment on above: Result Comment: These results are not intended for use in patients <18 years of age. eGFR results are calculated without a race factor using the 2020 CKD-EPI equation. Careful clinical correlation is recommended, particularly when comparing to results calculated using previous equations. The CKD-EPI equation is less accurate in patients with extremes of muscle mass, extra-renal metabolism of creatine, excessive creatine ingestion, or following therapy that affects renal tubular secretion. Performed By: #### C DP, VNCR, MG, TRIG, CHELO, BMP ####[place], [place] [address])[phone] Director: Ramiro Mark MD Glucose [Mass/Vol] 180 mg/dL High 74-99 [facility] Comment on above: Performed By: #### C DP, VNCR, MG, TRIG, CHELO, BMP ####[place], [place] [address])[phone] Director: Ramiro Mark MD Potassium [Moles/Vol] 4.3 mmol/L Normal 3.7-5.3 [facility] Comment on above: Performed By: #### C DP, VNCR, MG, TRIG, CHELO, BMP ####[facility] [address] [place] [address] Lab Director: Ramiro Mark MD Sodium [Moles/Vol] 135 mmol/L Low 136-145 [facility] Comment on above: Performed By: #### C DP, VNCR, MG, TRIG, CHELO, BMP ####[facility] [address] [place] [address] Lab Director: Ramiro Mark MD Urea nitrogen [Mass/Vol] 41 mg/dL High 6-20 [facility] Comment on above: Performed By: #### C DP, VNCR, MG, TRIG, CHELO, BMP ####[facility] [address] [place] [address] Lab Director: Ramiro Mark MD Anion gap [Moles/Vol] 10 mmol/L Normal 9-16 [facility] Comment on above: Performed By: #### M G, CHELO, BMP #### [facility] [address] [place] [phone] Sports Lawyer: Ramiro Mark MD Calcium [Mass/Vol] 8.1 mg/dL Low 8.6-10.4 [facility] Comment on above: Performed By: #### M G, CHELO, BMP #### [facility] [employer] [address] [place] [address] Sports Lawyer: Ramiro Mark MD Chloride [Moles/Vol] 106 mmol/L Normal 98-107 [facility] Comment on above: Performed By: #### M G, CHELO, BMP #### [facility] [employer] [address] [place] [address] Sports Lawyer: Ramiro Mark MD CO2 [Moles/Vol] 21 mmol/L Normal 20-31 [facility] Comment on above: Performed By: #### M G, CHELO, BMP #### [facility] [address] [place] [address] Sports Lawyer: Raimro Mark MD Creatinine [Mass/Vol] 1.6 mg/dL High 0.70-1.20 [facility] Comment on above: Performed By: #### M G, CHELO, BMP #### [facility] [employer] [address] [place] [address] Sports Lawyer: Ramiro Mark MD GFR/1.73 sq M.predicted among non-blacks MDRD (S/P/Bld) [Vol rate/Area] 51 mL/min/{1.73_m2} Low >60 [facility] Comment on above: Result Comment: These results are not intended for use in patients <18 years of age. eGFR results are calculated without a race factor using the 2020 CKD-EPI equation. Careful clinical correlation is recommended, particularly when comparing to results calculated using previous equations. The CKD-EPI equation is less accurate in patients with extremes of muscle mass, extra-renal metabolism of creatine, excessive creatine ingestion, or following therapy that affects renal tubular secretion. Performed By: #### Andres Arana CHELO, BMP #### [employer] [address] [place] [address] Sports Lawyer: Ramiro Mark MD Glucose [Mass/Vol] 135 mg/dL High 74-99 [facility] Comment on above: Performed By: #### Andres Arana CHELO, BMP #### [address] [employer] [address] [place] [address] Sports Lawyer: Ramiro Mark MD Potassium [Moles/Vol] 4.0 mmol/L Normal 3.7-5.3 [facility] Comment on above: Performed By: #### Andres Arana CHELO, BMP #### [employer] [address] [place] [address] Sports Lawyer: Ramiro Mark MD Sodium [Moles/Vol] 137 mmol/L Normal 136-145 [facility] Comment on above: Performed By: #### Andres Arana CHELO, BMP #### [facility] [address] [place] [address] Sports Lawyer: Ramiro Mark MD Urea nitrogen [Mass/Vol] 40 mg/dL High 6-20 [facility] Comment on above: Performed By: #### Andres Arana CHELO, BMP #### [employer] [address] [place] [address] Sports Lawyer: Ramiro Mark MD CBC with Auto Differentialon 01-20-2024 Basophils (Bld) [#/Vol] 0.04 10*3/uL [facility] Basophils/100 WBC (Bld) 0 % 0 - 2 % [facility] Eosinophils (Bld) [#/Vol] 0.10 10*3/uL [facility] Eosinophils/100 WBC (Bld) 1 % 1 - 4 % [facility] Erythrocyte distribution width (RBC) [Ratio] 14.2 % 11.8 - 14.4 % [facility] Hematocrit (Bld) [Volume fraction] 30.7 % Low 40.7 - 50.3 % [facility] Hemoglobin (Bld) [Mass/Vol] 10.1 g/dL Low 13.0 - 17.0 g/dL [facility] Immature granulocytes (Bld) [#/Vol] 0.06 10*3/uL [facility] Immature granulocytes/100 WBC (Bld) 1 % High 0 [facility] Interpretation and review of laboratory results Abnormal [facility] Lymphocytes/100 WBC (Bld) 10 % Low 24 - 43 % [facility] Lymphocytes/100 WBC (Bld) 1.10 % [facility] MCH (RBC) [Entitic mass] 29.4 pg 25. 2 - 33.5 pg [facility] MCHC (RBC) [Mass/Vol] 32.9 g/dL 28.4 - 34.8 g/dL [facility] MCV (RBC) [Entitic vol] 89.2 fL 82.6 - 102.9 fL [facility] Monocytes/100 WBC (Bld) 6 % 3 - 12 % [facility] ON [facility] Monocytes/100 WBC (Bld) 0.71 % [facility] Neutrophils/100 WBC (Bld) 82 % High 36 - 65 % [facility] Nucleated RBC/100 WBC (Bld) [Ratio] 0.0 % 0.0 per 100 WBC [facility] Platelet mean volume (Bld) [Entitic vol] 10.3 fL 8.1 - 13.5 fL [facility] Platelets (Bld) [#/Vol] 158 10*3/uL [facility] RBC (Bld) [#/Vol] 3.44 10*6/uL Low 4.21 - 5.7 7 m/uL [facility] Segmented neutrophils/100 WBC (Bld) 9.08 % High [facility] WBC other (Bld) [#/Vol] 11.1 B [facility] CBC with Diffon 01-20-2024 Abs. Basophil 0.04 k/uL Normal 0.00-0.20 [facility] Comment on above: Performed By: #### C DP, VNCR, MG, TRIG, CHELO, BMP ####[address] [address])[phone] Director: Ramiro Mark MD Abs.Imm.Granulocyte 0.06 k/uL Normal 0.00-0.30 [facility] Comment on above: Performed By: #### C DP, VNCR, MG, TRIG, CHELO, BMP ####[place], [place] [address])[phone] Director: Ramiro Mark MD Abs.Neutrophil (Seg) 9.08 k/uL High 1.50-8.10 [facility] Comment on above: Performed By: #### C DP, VNCR, MG, TRIG, CHELO, BMP ####[place], [place] [address])[phone] Director: Ramiro Mark MD Basophils/100 WBC (Bld) 0 % Normal 0-2 M [facility] Comment on above: Performed By: #### C DP, VNCR, MG, TRIG, CHELO, BMP ####[place], [place] [address])[phone] Director: Ramiro Mark MD Eosinophils (Bld) [#/Vol] 0.10 10*3/uL Normal 0.00-0.4 4 [facility] Comment on above: Performed By: #### C DP, VNCR, MG, TRIG, CHELO, BMP ####[address] [address])[phone] Director: Ramiro Mark MD Eosinophils/100 WBC (Bld) 1 % Normal 1-4 [facility] Comment on above: Performed By: #### C DP, VNCR, MG, TRIG, CHELO, BMP ####[address] [address])[phone] Director: Ramiro Mark MD Immature granulocytes/100 WBC (Bld) 1 % High 0 [facility] Comment on above: Performed By: #### C DP, VNCR, MG, TRIG, CHELO, BMP ####[address] [address])[phone] Director: Ramiro Mark MD Lymphocytes (Bld) [#/Vol] 1.10 10*3/uL Normal 1.10-3.7 0 [facility] Comment on above: Performed By: #### C DP, VNCR, MG, TRIG, CHELO, BMP ####[address] [address])[phone] Director: Ramiro Mark MD Lymphocytes/100 WBC (Bld) 10 % Low 24-43 [facility] Comment on above: Performed By: #### C DP, VNCR, MG, TRIG, CHELO, BMP ####[address] [address])[phone] Director: Ramiro Mark MD Monocytes (Bld) [#/Vol] 0.71 10*3/uL Normal 0.10-1.20 [facility] Comment on above: Performed By: #### C DP, VNCR, MG, TRIG, CHELO, BMP ####[address] [address])[phone] Director: Ramiro Mark MD Monocytes/100 WBC (Bld) 6 % Normal 3-12 [facility] Comment on above: Performed By: #### C DP, VNCR, MG, TRIG, CHELO, BMP ####[address] [address])[phone] Director: Ramiro Mark MD Neutrophil (Seg) 82 % High 36-65 [facility] Comment on above: Performed By: #### C DP, VNCR, MG, TRIG, CHELO, BMP ####[address] [address] [facility] Director: Ramiro Mark MD Erythrocyte distribution width (RBC) [Ratio] 14.2 % Normal 11.8-14.4 [facility] Comment on above: Performed By: #### C DP, VNCR, MG, TRIG, CHELO, BMP ####[place] [address] [facility] Director: Ramiro Mark MD Hematocrit (Bld) [Volume fraction] 30.7 % Low 40.7-50.3 [facility] Comment on above: Performed By: #### C DP, VNCR, MG, TRIG, CHELO, BMP ####[place], [place] [address])[phone] Director: Ramiro Mark MD Hemoglobin (Bld) [Mass/Vol] 10.1 g/dL Low 13.0-17. 0 [facility] Comment on above: Performed By: #### C DP, VNCR, MG, TRIG, CHELO, BMP ####[place] [address] [facility] Director: Ramiro Mark MD MCH (RBC) [Entitic mass] 29.4 pg Normal 25.2-33.5 [facility] Comment on above: Performed By: #### C DP, VNCR, MG, TRIG, CHELO, BMP ####[place], [place] [address])[phone] Director: Ramiro Mark MD MCHC (RBC) [Mass/Vol] 32.9 g/dL Normal 28.4-34.8 [facility] Comment on above: Performed By: #### C DP, VNCR, MG, TRIG, CHELO, BMP ####[facility] [address] [place], [place] [id number])[phone] Director: Rmairo Mark MD MCV (RBC) [Entitic vol] 89.2 fL Normal 82.6-102.9 M [facility] Comment on above: Performed By: #### C DP, VNCR, MG, TRIG, CHELO, BMP ####[address] [id number])[phone] Director: Ramiro Mark MD NRBC Automated 0.0 per 100 WBC Normal 0.0 [facility] Comment on above: Performed By: #### C DP, VNCR, MG, TRIG, CHELO, BMP ####[address] [address])[phone] Director: Ramiro Mark MD Platelet mean volume (Bld) [Entitic vol] 10.3 fL Normal 8.1-13.5 [facility] Comment on above: Performed By: #### C DP, VNCR, MG, TRIG, CHELO, BMP ####[address] [address])[phone] Director: Ramiro Mark MD Platelets (Bld) [#/Vol] 158 10*3/uL Normal 138-453 [facility] Comment on above: Performed By: #### C DP, VNCR, MG, TRIG, CHELO, BMP ####[address] [id number])[phone] Director: Ramiro Mark MD RBC (Bld) [#/Vol] 3.44 10*6/uL Low 4.21-5.77 [facility] Comment on above: Performed By: #### C DP, VNCR, MG, TRIG, CHELO, BMP ####[address] [phone])[phone] Director: Ramiro Mark MD WBC (Bld) [#/Vol] 11.1 10*3/uL Normal 3.5-11.3 [facility] Comment on above: Performed By: #### C DP, VNCR, MG, TRIG, CHELO, BMP ####[facility] [address] [place], [place] [phone] lab Director: Ramiro Mark MD Cult,Urineon 01-20-2024 Cult,Urine Specimen Description .URINE,STRAIGHT CATHETER Culture NO GROWTH Report Status FINAL 01/20/2024 Normal [facility] Comment on above: Performed By: #### U RC ####[facility] [address]mv[address] [place] [address] lab Director: Ramiro Mark MD Culture, Urineon 01-20-2024 Microorganism identified Cx Nom (Unsp spec) NO GROWTH [facility] Specimen Description .URINE,STRAIGHT CATHETER [facility] [employer] [facility] [employer] Cytology, Non-Gynon 01-20-20 [facility] Extubationon 01-20-2024 [facility] ExtubationOrdered By: Linda Lopez on 01-20-2024 [facility] Glucose (POC)on 01-20-2024 Glucose [Mass/Vol] 185 mg/dL High 74-100 [facility] Glucose,Whole Bloodon 2023 Glucose [Mass/Vol] 206 mg/dL High 75-110 [facility] Glucose [Mass/Vol] 236 mg/dL High 75-110 [facility] Glucose [Mass/Vol] 228 mg/dL High 75-110 [facility] Glucose [Mass/Vol] 147 mg/dL High 75-110 [facility] Glucose [Mass/Vol] 133 mg/dL High 75-110 [facility] Glucose [Mass/Vol] 179 mg/dL High 75-110 [facility] Glucose [Mass/Vol] 205 mg/dL High 75-110 [facility] Glucose [Mass/Vol] 177 mg/dL High 75-110 [facility] Glucose [Mass/Vol] 167 mg/dL High 75-110 [facility] Glucose [Mass/Vol] 187 mg/dL High 75-110 [facility] Glucose [Mass/Vol] 187 mg/dL High 75-110 [facility] Glucose [Mass/Vol] 172 mg/dL High 75-110 [facility] Glucose [Mass/Vol] 156 mg/dL High 75-110 [facility] Glucose [Mass/Vol] 122 mg/dL High 75-110 [facility] Glucose [Mass/Vol] 96 mg/dL Normal 75-110 [facility] Glucose [Mass/Vol] 77 mg/dL Normal 75-110 [facility] Glucose [Mass/Vol] 111 mg/dL High 75-110 [facility] Guidance for puncture of Lum bar spineon 01-20-2024 MHPN RIS CONSOLIDATED PN RIS CONSOLIDATED [facility] Guidance for puncture of Lum bar spineOrdered By: Felix Dai on 01-20-2024 [facility] Work Phone: IR LUMBAR PUNCTURE FOR DIAGN OSISon 01-20-2024 IR LUMBAR PUNCTURE FOR DIAGNOSIS EXAMINATION: FLUOROSCOPIC GUIDED LUMBAR PUNCTURE 01/19/2024 3:52 pm HISTORY: ORDERING SYSTEM PROVIDED HISTORY: meningitis/encepha litis TECHNOLOGIST PROVIDED HISTORY: Meningitis/encepha litis FLUOROSCOPY DOSE AND TYPE: Fluoro time 0.3 minutes DAP 124.50 uGy m 2 Views: 2 PROCEDURE: GENERAL OPHTHALMOLOGIST: Goldy Rojas This procedure was performed by Goldy Rojas PA-C under indirect supervision of Dr. Dai. After detailed explanation of the procedure including risks, benefits, and alternatives, informed consent was obtained. The patient was placed prone on the fluoroscopic table. The lower back was prepped and draped in usual sterile fashion using maximum sterile barrier technique. All elements of maximal sterile barrier technique, including cap, mask, sterile gown, sterile gloves, a large sterile sheet, hand hygiene, and 2% chlorhexidine for cutaneous antisepsis were followed. 1% lidocaine was used as local anesthetic. Under fluoroscopic guidance, a 20-gauge spinal needle was advanced into the thecal sac at the L3-L4 level. Upon establishing CSF fluid return, multiple vials of clear CSF were obtained for a total of 12 mL. The samples were labeled appropriately. Estimated blood loss was less than 1 mL. The stylet was reinserted and the needle was then removed. Sterile dressing was applied at the puncture site. The patient tolerated the procedure well and left the department in stable condition. IMPRESSION: Successful fluoroscopic-guide d lumbar puncture. Interpreted by: Felix Dai MD [employer], Jacob, PA Signed by: Felix Dai MD 01/20/24 Final result Normal [facility] Lactic Acidon 01-20-2024 Lactic Acid,Whole Bl 1.7 mmol/L Normal 0.7-2.1 [facility] Comment on above: Performed By: #### D AU #### [employer] [address] [place] [address] [phone] Sports Lawyer: Ramiro Mark MD Lactic Acid, Whole Blood 1.7 mmol/L 0.7 - 2.1 mmol/L [facility] Lactic Acid,Whole Bl 1.3 mmol/L Normal 0.7-2.1 [facility] Comment on above: Performed By: #### D AU #### [employer] [facility] [address] [place], [place] [phone] Sports Lawyer: Ramiro Mark MD Lactic Acid, Whole Blood 1.3 mmol/L 0.7 - 2.1 mmol/L [facility] Lactic Acid,Whole Bl 1.2 mmol/L Normal 0.7-2.1 [facility] Comment on above: Performed By: #### M G, CHELO, BMP #### [employer] [facility] [address] [place] [address] Sports Lawyer: Ramiro Mark MD Lactic Acid, Whole Blood 1.2 mmol/L 0.7 - 2.1 mmol/L [facility] Magnesiumon 01-20-2024 Magnesium [Mass/Vol] 1.8 mg/dL Normal 1.6-2.6 [facility] Comment on above: Performed By: #### M G, CHELO, BMP #### [facility] [address] [place] [address] Sports Lawyer: Ramiro Mark MD Magnesium [Mass/Vol] 1.8 mg/dL 1.6 - 2 .6 mg/dL [facility] Magnesium [Mass/Vol] 1.9 mg/dL Normal 1.6-2.6 [facility] Comment on above: Performed By: #### M G, CHELO, BMP #### [facility] [address] [place] [address] [phone] Sports Lawyer: Ramiro Mark MD Magnesium [Mass/Vol] 1.9 mg/dL 1.6 - 2 .6 mg/dL [facility] Magnesium [Mass/Vol] 1.9 mg/dL Normal 1.6-2.6 [facility] Comment on above: Performed By: #### D AU #### [employer] [address] [place] [address] Sports Lawyer: Ramiro Mark MD Magnesium [Mass/Vol] 1.9 mg/dL 1.6 - 2 .6 mg/dL [facility] Magnesium [Mass/Vol] 2.0 mg/dL Normal 1.6-2.6 [facility] Comment on above: Performed By: #### C DP, VNCR, MG, TRIG, CHELO, BMP ####[employer] [address] [place] [address] Lab Director: Ramiro Mark MD Magnesium [Mass/Vol] 2.0 mg/dL 1.6 - 2 .6 mg/dL [facility] Magnesium [Mass/Vol] 2.0 mg/dL Normal 1.6-2.6 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 4 Case No: [id number] Normal [facility] Comment on above: Performed By: #### N GLUE MAKER ####[facility] [address] [place] [phone] [facility] Director: Ramiro Mark MD POC Glucose Fingerstickon Glucose [Mass/Vol] 206 mg/dL High 75 - 110 mg/dL [facility] Interpretation and review of laboratory results Abnormal [facility] Glucose [Mass/Vol] 236 mg/dL High 75 - 110 mg/dL [facility] Interpretation and review of laboratory results Abnormal [facility] Glucose [Mass/Vol] 228 mg/dL High 75 - 110 mg/dL [facility] Interpretation and review of laboratory results Abnormal [facility] Glucose [Mass/Vol] 147 mg/dL High 75 - 110 mg/dL [facility] Interpretation and review of laboratory results Abnormal [facility] Glucose [Mass/Vol] 133 mg/dL High 75 - 110 mg/dL [facility] Interpretation and review [facility] laboratory results Abnormal [facility] Glucose [Mass/Vol] 179 mg/dL High 75 - 110 mg/dL [facility] Interpretation and review of laboratory results Abnormal [facility] Glucose [Mass/Vol] 205 mg/dL High 75 - 110 mg/dL [facility] Interpretation and review of laboratory results Abnormal [facility] Glucose [Mass/Vol] 177 mg/dL High 75 - 110 mg/dL [facility] Interpretation and review of laboratory results Abnormal [facility] JEREMIAH Slaughter [facility] Glucose [Mass/Vol] 167 mg/dL High 75 - 110 mg/dL [facility] Interpretation and review of laboratory results Abnormal SHARON Slaughter [facility] Glucose [Mass/Vol] 187 mg/dL High 75 - 110 mg/dL [facility] Interpretation and review of laboratory results Abnormal [facility]aughter [facility] Glucose [Mass/Vol] 187 mg/dL High 75 - 110 mg/dL [facility] Interpretation and review of laboratory results Abnormal [facility] JEREMIAH Slaughter [facility] [facility] Glucose [Mass/Vol] 172 mg/dL High 75 - 110 mg/dL [facility] Interpretation and review of laboratory results Abnormal [facility] Glucose [Mass/Vol] 156 mg/dL High 75 - 110 mg/dL [facility] Interpretation and review of laboratory results Abnormal [facility] JEREMIAH Slaughter [facility] Glucose [Mass/Vol] 122 mg/dL High 75 - 110 mg/dL [facility] Interpretation and review of laboratory results Abnormal [facility] JEREMIAH Slaughter [facility] Glucose [Mass/Vol] 96 mg/dL 75 - 110 mg/dL [facility] POCT Glucoseon 01-20-2024 Glucose [Mass/Vol] 185 mg/dL High 74 - 100 mg/dL [facility] Phosphoruson 01-20-2024 Phosphate [Mass/Vol] 1.9 mg/dL Low 2.5 - 4 .5 mg/dL [facility] Phosphate [Mass/Vol] 2.4 mg/dL Low 2.5 - 4 .5 mg/dL [facility] Phosphate [Mass/Vol] 3.3 mg/dL 2.5 - 4 .5 mg/dL [facility] Phosphate [Mass/Vol] 3.9 mg/dL 2.5 - 4 .5 mg/dL [facility] Phosphate [Mass/Vol] 3.9 mg/dL 2.5 - 4 .5 mg/dL [facility] Phosphorus, Inorg.on 024 Phosphorus, Inorg. 1.9 mg/dL Low 2.5-4.5 [facility] Comment on above: Performed By: #### M G, CHELO, BMP #### [facility] [address] [place] [address] Sports Lawyer: Ramiro Mark MD Phosphorus, Inorg. 2.4 mg/dL Low 2.5-4.5 [facility] Comment on above: Performed By: #### M G, CHELO, BMP #### [employer] [facility] [address] [place] [address] Sports Lawyer: Ramiro Mark MD Phosphorus, Inorg. 3.3 mg/dL Normal 2.5-4.5 [facility] Comment on above: Performed By: #### D AU #### [employer] [address] [place] [address] Sports Lawyer: Ramiro Mark MD Phosphorus, Inorg. 3.9 mg/dL Normal 2.5-4.5 [facility] Comment on above: Performed By: #### C DP, VNCR, MG, TRIG, CHELO, BMP ####[employer] [address] [place] [address] Lab Director: Ramiro Mark MD Phosphorus, Inorg. 3.9 mg/dL Normal 2.5-4.5 [facility] Comment on above: Performed By: #### M G, CHELO, BMP #### [employer] [address] [place] [address] Sports Lawyer: Ramiro Mark MD SURGICAL PATHOLOGY REPORTon 01-20-2024 Surgical Pathology Report [facility] Triglycerideon 01-20-2024 Triglyceride [Mass/Vol] 62 mg/dL NINF - 150 mg/dL [facility] Triglycerideson 01-20-2024 Triglyceride [Mass/Vol] 62 mg/dL Normal <150 M [facility] Comment on above: Result Comment: Triglyceride Guidelines: <150 Desirable 150-199 Borderline 200-499 High >499 Very high Based on AHA Guidelines for fasting triglyceride, July 2012. Performed By: #### C DP, VNCR, MG, TRIG, CHELO, BMP ####[facility] [address] [place], [place] [id number] Lab Director: Ramiro Mark MD VDRL CSFon 01-20-2024 Reagin Ab VDRL Ql (CSF) Non-Reactive NONREACTIV E [facility] VDRL, Qual, CSFon 01-20-2024 VDRL, Qual, CSF Non-Reactive Normal [facility] Comment on above: Performed By: #### C TP, CGLU, CFVD, MEVP, CFCNT ####[facility] [address] [place] [address] [phone] Lab Director: Ramiro Mark MD#### ABHINAVCT, AWNCSF ####[facility] [address] [place] [address] [phone] Lab Director: Wil Swanson MD Vancomycin Level, Randomon 0 01-20-2024 Vancomycin [Mass/Vol] 18.9 ug/mL 5.0 - 40.0 ug/mL [facility] Vancomycin,Randomon 01-20-20 24 Vancomycin 18.9 ug/mL Normal 5.0-40.0 [facility] Comment on above: Result Comment: High er trough serum vancomycin concentrations of 15-20 ug/mL are recommended for complicated infections such as bacteremia, endocarditis, osteomyelitis, meningitis, and hospital acquired pneumonia. Performed By: #### M G, CHELO, BMP #### [facility] [employer] [address] [place] [address] [phone] Sports Lawyer: Ramiro Mark MD APTTon 01-19-2024 aPTT Coag (Bld) [Time] 23.4 s Normal 23.0-36.5 [facility] Comment on above: Result Comment: IV Heparin Therapy Range: 66.0-92.0 sec Performed By: #### P TT, CHELO, MG, BMP, PT, PRCAL ####[employer] [address] [place], [place] [phone] lab Director: Ramiro Mark MD aPTT Coag (Bld) [Time] 23.4 s BRUNO N [facility] Ammoniaon 01-19-2024 Ammonia (P) [Moles/Vol] 32 umol/L Normal 16-60 M [facility] Comment on above: Result Comment: Spec imen lipemia has exceeded the interference as defined by Jaime. Results may be affected. Performed By: #### T SHX, JHON ####[employer] [place], [place] [id number] lab Director: Ramiro Mark MD Ammonia (P) [Moles/Vol] 32 umol/L 16 - 60 umol/L [facility] Arterial Bld Gas,POCon 01-18 Jody Test Positive Normal [facility] FIO2 30.0 Normal [facility] HCO3 (Bld) [Moles/Vol] 23.9 mmol/L Normal 21.0-28.0 M [facility] Mode of Delivery PRVC Normal [facility] Negative Base Excess (calc) 0.9 mmol/L Normal 0.0-2.0 [facility] Oxygen saturation in Blood 98.8 % High 94.0-98.0 [facility] pCO2, Arterial 38.9 mm Hg Normal 35.0-48.0 [facility] pH, Arterial 7.395 Normal 7.350-7.450 [facility] pO2, Arterial 124.3 mm Hg High 83.0-108.0 [facility] Site Drawn Right Radial Artery Normal [facility] Jody Test Positive Normal [facility] FIO2 28.0 Normal [facility] HCO3 (Bld) [Moles/Vol] 24.1 mmol/L Normal 21.0-28.0 [facility] Cannula Normal [facility] Oxygen saturation in Blood 95.5 % Normal 94.0-98.0 [facility] pCO2, Arterial 35.5 mm Hg Normal 35.0-48.0 [facility] pH, Arterial 7.439 Normal 7.350-7.450 [facility] pO2, Arterial 74.9 mm Hg Low 83.0-108.0 [facility] Positive Base Excess (calc) 0.2 mmol/L Normal 0.0-3.0 [facility] Site Drawn Right Radial Artery Normal [facility] Arterial Blood Gas, POCon Jody Test Positive [facility] [employer] FIO2 30.0 [facility] HCO3 (Bld) [Moles/Vol] 23.9 mmol/L 21.0 - 28.0 mmol/L [facility] [employer] Mode PRVC [facility] [employer] Negative Base Excess, Art 0.9 mmol/L 0. 0 - 2.0 mmol/L [facility] Oxygen saturation in Blood 98.8 % High 9 4.0 - 98.0 % [facility] POC pCO2 38.9 [facility] POC pH 7.395 7.350 - 7.450 [facility] POC PO2 124.3 High [facility] Sample Site Right Radial Artery [facility] Jody Test Positive [facility] FIO2 28.0 [facility] HCO3 (Bld) [Moles/Vol] 24.1 mmol/L 21.0 - 28.0 mmol/L [facility] Interpretation and review of laboratory results Abnormal [facility] [employer] O2 Delivery Device Cannula [facility] [employer] Oxygen saturation in Blood 95.5 % 9 4.0 - 98.0 % [facility] POC pCO2 35.5 [facility] POC pH 7.439 7.350 - 7.450 [facility] POC PO2 74.9 Low [facility] Positive Base Excess, Art 0.2 mmol/L 0. 0 - 3.0 mmol/L [facility] Sample Site Right Radial Artery [facility] Basic Metab w/rfx MGon 01-18 Anion gap [Moles/Vol] 22 mmol/L High 9-16 [facility] Comment on above: Performed By: #### M G, CHELO, BMP #### [employer] [address] [place] [phone] Sports Lawyer: Ramiro Mark MD Calcium [Mass/Vol] 9.0 mg/dL Normal 8.6-10.4 [facility] Comment on above: Performed By: #### Andres Arana, CHELO, BMP #### [employer] [address] [place] [phone] Sports Lawyer: Ramiro Mark MD Chloride [Moles/Vol] 94 mmol/L Low 98-107 [facility] Comment on above: Performed By: #### Andres Arana, CHELO, BMP #### [employer] [address] [place] [address] Sports Lawyer: Ramiro Mark MD CO2 [Moles/Vol] 15 mmol/L Low 20-31 [facility] Comment on above: Performed By: #### M G, CHELO, BMP #### [employer] [address] [place] [address] Sports Lawyer: Ramiro Mark MD Creatinine [Mass/Vol] 1.7 mg/dL High 0.70-1.20 [facility] Comment on above: Performed By: #### Andres G, CHELO, BMP #### [employer] [address] [place] [phone] Sports Lawyer: Ramiro Mark MD GFR/1.73 sq M.predicted among non-blacks MDRD (S/P/Bld) [Vol rate/Area] 48 mL/min/{1.73_m2} Low >60 [facility] Comment on above: Result Comment: These results are not intended for use in patients <18 years of age. eGFR results are calculated without a race factor using the 2020 CKD-EPI equation. Careful clinical correlation is recommended, particularly when comparing to results calculated using previous equations. The CKD-EPI equation is less accurate in patients with extremes of muscle mass, extra-renal metabolism of creatine, excessive creatine ingestion, or following therapy that affects renal tubular secretion. Performed By: #### M Sumit, CHELO, BMP #### [facility] [address] [place] [phone] Sports Lawyer: Ramiro Mark MD Glucose [Mass/Vol] 530 mg/dL Critically high 74-99 [facility] Comment on above: Performed By: #### M Sumit CHELO, BMP #### [facility] [address] [place] [address] Sports Lawyer: Ramiro Mark MD Potassium [Moles/Vol] 5.6 mmol/L High 3.7-5.3 [facility] Comment on above: Performed By: #### M G, CHELO, BMP #### [facility] [address] [place] [address] Sports Lawyer: Ramiro Mark MD Sodium [Moles/Vol] 131 mmol/L Low 136-145 [facility] Comment on above: Performed By: #### M G CHELO, BMP #### [facility] [address] [place] [address] Sports Lawyer: Ramiro Mark MD Urea nitrogen [Mass/Vol] 47 mg/dL High 6-20 [facility] Comment on above: Performed By: #### M G, CHELO, BMP #### [facility] [address] [place] [address] Sports Lawyer: Ramiro Mark MD Basic Metabolic Panelon -0 Anion gap [Moles/Vol] 12 mmol/L 9 - 16 mmol/L [facility] Calcium [Mass/Vol] 8.2 mg/dL Low 8.6 - 10. 4 mg/dL [facility] Chloride [Moles/Vol] 105 mmol/L 98 - 10 7 mmol/L [facility] CO2 [Moles/Vol] 20 mmol/L 20 - 31 mmol/L [facility] Creatinine [Mass/Vol] 1.5 mg/dL High 0.70 - 1.20 mg/dL [facility] GFR/1.73 sq M.predicted MDRD (S/P/Bld) [Vol rate/Area] 55 mL/min/{1.73_m2} Low - PINF [facility] Glucose [Mass/Vol] 257 mg/dL High 74 - 99 mg/dL [facility] Interpretation and review of laboratory results Abnormal [facility] Potassium [Moles/Vol] 3.8 mmol/L 3.7 - 5.3 mmol/L [facility] Sodium [Moles/Vol] 137 mmol/L 136 - 145 mmol/L [facility] Urea nitrogen [Mass/Vol] 41 mg/dL High 6 - 20 mg/d L [facility] Anion gap [Moles/Vol] 10 mmol/L 9 - 16 mmol/L [facility] Calcium [Mass/Vol] 8.2 mg/dL Low 8.6 - 10. 4 mg/dL [facility] Chloride [Moles/Vol] 105 mmol/L 98 - 10 7 mmol/L [facility] CO2 [Moles/Vol] 22 mmol/L 20 - 31 mmol/L [facility] Creatinine [Mass/Vol] 1.6 mg/dL High 0.70 - 1.20 mg/dL [facility] GFR/1.73 sq M.predicted MDRD (S/P/Bld) [Vol rate/Area] 51 mL/min/{1.73_m2} Low - PINF [facility] Glucose [Mass/Vol] 208 mg/dL High 74 - 99 mg/dL [facility] Interpretation and review of laboratory results Abnormal [facility] Potassium [Moles/Vol] 4.4 mmol/L 3.7 - 5.3 mmol/L [facility] Sodium [Moles/Vol] 137 mmol/L 136 - 145 mmol/L [facility] Urea nitrogen [Mass/Vol] 42 mg/dL High 6 - 20 mg/d L [facility] Basic Metabolic Panel w/ Ref jose to MGon 01-19-2024 Anion gap [Moles/Vol] 22 mmol/L High 9 - 16 mmol/L [facility] Calcium [Mass/Vol] 9.0 mg/dL 8.6 - 10. 4 mg/dL [facility] Chloride [Moles/Vol] 94 mmol/L Low 98 - 10 7 mmol/L [facility] CO2 [Moles/Vol] 15 mmol/L Low 20 - 31 mmol/L [facility] Creatinine [Mass/Vol] 1.7 mg/dL High 0.70 - 1.20 mg/dL [facility] GFR/1.73 sq M.predicted MDRD (S/P/Bld) [Vol rate/Area] 48 mL/min/{1.73_m2} Low - PINF [facility] Glucose [Mass/Vol] 530 mg/dL Critically high 74 - 9 9 mg/dL [facility] Interpretation and review of laboratory results Abnormal [facility] Potassium [Moles/Vol] 5.6 mmol/L High 3.7 - 5.3 mmol/L [facility] Sodium [Moles/Vol] 131 mmol/L Low 136 - 145 mmol/L [facility] Urea nitrogen [Mass/Vol] 47 mg/dL High 6 - 20 mg/d L [facility] Basic Metabolic Profon 01-18 Anion gap [Moles/Vol] 12 mmol/L Normal 9-16 [facility] Comment on above: Performed By: #### M G, CHELO, BMP ####[employer] [address] [place], [place] [id number] lab Director: Ramiro Mark MD Calcium [Mass/Vol] 8.2 mg/dL Low 8.6-10.4 [facility] Comment on above: Performed By: #### M G, CHELO, BMP ####[employer] [address] [place], [place] [phone] Lab Director: Ramiro Mark MD Chloride [Moles/Vol] 105 mmol/L Normal 98-107 [facility] Comment on above: Performed By: #### M G, CHELO, BMP ####[facility] [address] [place], [place] [phone] Director: Ramiro Mark MD CO2 [Moles/Vol] 20 mmol/L Normal 20-31 [facility] Comment on above: Performed By: #### M G, CHELO, BMP ####[facility] [address] [place], [place] [phone] Director: Ramiro Mark MD Creatinine [Mass/Vol] 1.5 mg/dL High 0.70-1.20 [facility] Comment on above: Performed By: #### M Sumit, CHELO, BMP ####[facility] [address] [place], [place] [phone] Director: Ramiro Mark MD GFR/1.73 sq M.predicted among non-blacks MDRD (S/P/Bld) [Vol rate/Area] 55 mL/min/{1.73_m2} Low >60 [facility] Comment on above: Result Comment: These results are not intended for use in patients <18 years of age. eGFR results are calculated without a race factor using the 2020 CKD-EPI equation. Careful clinical correlation is recommended, particularly when comparing to results calculated using previous equations. The CKD-EPI equation is less accurate in patients with extremes of muscle mass, extra-renal metabolism of creatine, excessive creatine ingestion, or following therapy that affects renal tubular secretion. Performed By: #### M G, CHELO, BMP ####[facility] [address] [place], [place] [phone] Director: Ramiro Mark MD Glucose [Mass/Vol] 257 mg/dL High 74-99 [facility] Comment on above: Performed By: #### M G, CHELO, BMP ####[facility] [address] [place], [place] [phone] Director: Ramiro Mark MD Potassium [Moles/Vol] 3.8 mmol/L Normal 3.7-5.3 [facility] Comment on above: Performed By: #### M G, CHELO, BMP ####[facility] [address] [place], [place] [phone] Director: Ramiro Mark MD Sodium [Moles/Vol] 137 mmol/L Normal 136-145 [facility] Comment on above: Performed By: #### M G, CHELO, BMP ####[facility] [address] [place], [place] [address])[phone] Director: Ramrio Mark MD Urea nitrogen [Mass/Vol] 41 mg/dL High 6-20 [facility] Comment on above: Performed By: #### M G, CHELO, BMP ####[facility] [address] [place], [place] [address])[phone] Director: Ramiro Mark MD Anion gap [Moles/Vol] 10 mmol/L Normal 9-16 [facility] Comment on above: Performed By: #### P TT, CHELO, MG, BMP, PT, PRCAL ####[facility] [address] [place] [address])[phone] Director: Ramiro Mark MD Calcium [Mass/Vol] 8.2 mg/dL Low 8.6-10.4 [facility] Comment on above: Performed By: #### P TT, CHELO, MG, BMP, PT, PRCAL ####[facility] [address] [place], [place] [phone] Director: Ramiro Mark MD Chloride [Moles/Vol] 105 mmol/L Normal 98-107 [facility] Comment on above: Performed By: #### P TT, CHELO, MG, BMP, PT, PRCAL ####[facility] [address] [place], [place] [address])[phone] Director: Ramiro Mark MD CO2 [Moles/Vol] 22 mmol/L Normal 20-31 [facility] Comment on above: Performed By: #### P TT, CHELO, MG, BMP, PT, PRCAL ####[address] [id number] Lab Director: Ramiro Mark MD Creatinine [Mass/Vol] 1.6 mg/dL High 0.70-1.20 [facility] Comment on above: Performed By: #### P TT, CHELO, MG, BMP, PT, PRCAL ####[address] [address] Lab Director: Ramiro Mark MD GFR/1.73 sq M.predicted among non-blacks MDRD (S/P/Bld) [Vol rate/Area] 51 mL/min/{1.73_m2} Low >60 [facility] Comment on above: Result Comment: These results are not intended for use in patients <18 years of age. eGFR results are calculated without a race factor using the 2020 CKD-EPI equation. Careful clinical correlation is recommended, particularly when comparing to results calculated using previous equations. The CKD-EPI equation is less accurate in patients with extremes of muscle mass, extra-renal metabolism of creatine, excessive creatine ingestion, or following therapy that affects renal tubular secretion. Performed By: #### P TT, CHELO, MG, BMP, PT, PRCAL ####[address] [address] Lab Director: Ramiro Mark MD Glucose [Mass/Vol] 208 mg/dL High 74-99 [facility] Comment on above: Performed By: #### P TT, CHELO, MG, BMP, PT, PRCAL ####[address] [address] Lab Director: Ramiro Mark MD Potassium [Moles/Vol] 4.4 mmol/L Normal 3.7-5.3 [facility] Comment on above: Result Comment: SPEC IMEN SLIGHTLY HEMOLYZED, RESULTS MAY BE ADVERSELY AFFECTED. Performed By: #### P TT, CHELO, MG, BMP, PT, PRCAL ####[facility] [place] [address] Lab Director: Ramiro Mark MD Sodium [Moles/Vol] 137 mmol/L Normal 136-145 [facility] Comment on above: Performed By: #### P TT, CHELO, MG, BMP, PT, PRCAL ####[address] [address] Lab Director: Ramiro Mark MD Urea nitrogen [Mass/Vol] 42 mg/dL High 6-20 [facility] Comment on above: Performed By: #### P TT, CHELO, MG, BMP, PT, PRCAL ####[address] [address] Lab Director: Ramiro Mark MD Anion gap [Moles/Vol] 14 mmol/L Normal 9-17 [facility] Comment on above: Performed By: #### B MP, LIVP, TROPI, CDP, MG #### [address] [place] [address] Sports Lawyer: Ramiro Santillan MD BUN/CRE Ratio 26 High 9-20 [facility] Comment on above: Performed By: #### B MP, LIVP, TROPI, CDP, MG #### [facility] [address] [place] [address] Sports Lawyer: Ramiro Santillan MD Calcium [Mass/Vol] 9.3 mg/dL Normal 8.6-10.4 [facility] Comment on above: Performed By: #### B MP, LIVP, TROPI, CDP, MG #### [facility] [address] [place] [address] Sports Lawyer: Ramiro Santillan MD Chloride [Moles/Vol] 95 mmol/L Low 98-107 [facility] Comment on above: Performed By: #### B MP, LIVP, TROPI, CDP, MG #### [facility] [address] [place] [address] Sports Lawyer: Ramiro Santillan MD CO2 [Moles/Vol] 22 mmol/L Normal 20-31 [facility] Comment on above: Performed By: #### B MP, LIVP, TROPI, CDP, MG #### [facility] [address] [place], [place] [phone] Sports Lawyer: Ramiro Santillan MD Creatinine [Mass/Vol] 1.7 mg/dL High 0.7-1.2 [facility] Comment on above: Performed By: #### B MP, LIVP, TROPI, CDP, MG #### [facility] [address] [place], [place] [phone] Sports Lawyer: Ramiro Santillan MD GFR/1.73 sq M.predicted among non-blacks MDRD (S/P/Bld) [Vol rate/Area] 49 mL/min/{1.73_m2} Low >60 [facility] Comment on above: Result Comment: These results are not intended for use in patients <18 years of age. eGFR results are calculated without a race factor using the 2020 CKD-EPI equation. Careful clinical correlation is recommended, particularly when comparing to results calculated using previous equations. The CKD-EPI equation is less accurate in patients with extremes of muscle mass, extra-renal metabolism of creatine, excessive creatine ingestion, or following therapy that affects renal tubular secretion. Performed By: #### B MP, LIVP, TROPI, CDP, MG #### [facility] [address] [place] [address] Sports Lawyer: Ramiro Santillan MD Glucose [Mass/Vol] 242 mg/dL High 70-99 [facility] Comment on above: Performed By: #### B MP, LIVP, TROPI, CDP, MG #### [facility] [address] [place] [address] Sports Lawyer: Ramiro Santillan MD Potassium [Moles/Vol] 4.7 mmol/L Normal 3.7-5.3 [facility] Comment on above: Performed By: #### B MP, LIVP, TROPI, CDP, MG #### [facility] [address] [place] [address] Sports Lawyer: Ramiro Santillan MD Sodium [Moles/Vol] 131 mmol/L Low 135-144 [facility] Comment on above: Performed By: #### B MP, LIVP, TROPI, CDP, MG #### [facility] [address] [place] [address] Sports Lawyer: Ramiro Santillan MD Urea nitrogen [Mass/Vol] 44 mg/dL High 6-20 [facility] Comment on above: Performed By: #### B MP, LIVP, TROPI, CDP, MG #### [address] [place], [place] [phone] Sports Lawyer: Ramiro Santillan MD Beta Hydroxybutyrateon 01-18 Beta Hydroxybutyrate 3.37 mmol/L High 0.02-0.27 [facility] Comment on above: Performed By: #### T ROPI, NIK, CDP, ALCB, CRP, SED, GLYHGB, CK, BH, BMPX ####[facility] [address] [place] [address] Lab Director: Ramiro Mark MD Beta-Hydroxybutyrateon 01-18 Beta hydroxybutyrate [Mass/Vol] 3.37 mmol/L High 0.02 - 0.27 mmol/L [facility] C-Reactive Proteinon 024 CRP [Mass/Vol] 3.7 mg/L Normal 0.0-5.0 [facility] Comment on above: Performed By: #### T ROPI, NIK, CDP, ALCB, CRP, SED, GLYHGB, CK, BH, BMPX ####[facility] [address] [place] [address] lab Director: Ramiro Mark MD CRP High sensitivity method [Mass/Vol] 3.7 mg/L 0.0 - 5.0 mg/L [facility] CBC with Auto Differentialon 01-19-2024 Basophils (Bld) [#/Vol] 0.08 10*3/uL [facility] Basophils/100 WBC (Bld) 1 % 0 - 2 % B ON [facility] Eosinophils (Bld) [#/Vol] 0.03 10*3/uL [facility] Eosinophils/100 WBC (Bld) 0 % Low 1 - 4 % [facility] Erythrocyte distribution width (RBC) [Ratio] 13.6 % 11.8 - 14.4 % [facility] Hematocrit (Bld) [Volume fraction] 37.2 % Low 40.7 - 50.3 % [facility] Hemoglobin (Bld) [Mass/Vol] 12.9 g/dL Low 13.0 - 17.0 g/dL [facility] Immature granulocytes (Bld) [#/Vol] 0.07 10*3/uL [facility] Immature granulocytes/100 WBC (Bld) 1 % High 0 [facility] Interpretation and review of laboratory results Abnormal [facility] Lymphocytes/100 WBC (Bld) 6 % Low 24 - 43 % [facility] Lymphocytes/100 WBC (Bld) 0.77 % Low [facility] MCH (RBC) [Entitic mass] 29.3 pg 25. 2 - 33.5 pg [facility] MCHC (RBC) [Mass/Vol] 34.7 g/dL 28.4 - 34.8 g/dL [facility] MCV (RBC) [Entitic vol] 84.4 fL 82.6 - 102.9 fL [facility] Monocytes/100 WBC (Bld) 1 % Low 3 - 12 % B ON [facility] Monocytes/100 WBC (Bld) 0.18 % B ON [facility] Neutrophils/100 WBC (Bld) 91 % High 36 - 65 % [facility] Nucleated RBC/100 WBC (Bld) [Ratio] 0.0 % 0.0 per 100 WBC [facility] Platelet mean volume (Bld) [Entitic vol] 10.9 fL 8.1 - 13.5 fL [facility] Platelets (Bld) [#/Vol] 201 10*3/uL [facility] RBC (Bld) [#/Vol] 4.41 10*6/uL 4.21 - 5.7 7 m/uL [facility] Segmented neutrophils/100 WBC (Bld) 12.03 % High [facility] WBC other (Bld) [#/Vol] 13.2 High B [facility] CBC with Diffon 01-19-2024 Abs. Basophil 0.08 k/uL Normal 0.00-0.20 [facility] Comment on above: Performed By: #### Andres Arana CHELO, BMP #### [facility] [employer] [address] [place] [address] Sports Lawyer: Ramiro Mark MD Abs.Imm.Granulocyte 0.07 k/uL Normal 0.00-0.30 [facility] Comment on above: Performed By: #### Andres Arana CHELO, BMP #### [facility] [address] [place] [address] Sports Lawyer: Ramiro Mark MD Abs.Neutrophil (Seg) 12.03 k/uL High 1.50-8.10 [facility] Comment on above: Performed By: #### Andres Arana CHELO, BMP #### [facility] [address] [place] [address] Sports Lawyer: Ramiro Mark MD Basophils/100 WBC (Bld) 1 % Normal 0-2 [facility] Comment on above: Performed By: #### Andres Arana CHELO, BMP #### [facility] [address] [place] [address] Sports Lawyer: Ramiro Mark MD Eosinophils (Bld) [#/Vol] 0.03 10*3/uL Normal 0.00-0.4 4 [facility] Comment on above: Performed By: #### Andres Arana CHELO, BMP #### [facility] [employer] [address] [place] [address] Sports Lawyer: Ramiro Mark MD Eosinophils/100 WBC (Bld) 0 % Low 1-4 [facility] Comment on above: Performed By: #### Andres Arana CHELO, BMP #### [facility] [employer] [address] [place] [address] Sports Lawyer: Ramiro Mark MD Erythrocyte distribution width (RBC) [Ratio] 13.6 % Normal 11.8-14.4 [facility] Comment on above: Performed By: #### Andres Arana CHELO, BMP #### [facility] [employer] [address] [place] [address] Sports Lawyer: Ramiro Mark MD Hematocrit (Bld) [Volume fraction] 37.2 % Low 40.7-50.3 [facility] Comment on above: Performed By: #### Andres Arana CHELO, BMP #### [facility] [employer] [address] [place] [address] Sports Lawyer: Ramiro Mark MD Hemoglobin (Bld) [Mass/Vol] 12.9 g/dL Low 13.0-17. 0 [facility] Comment on above: Performed By: #### Andres Arana CHELO, BMP #### [facility] [employer] [address] [place] [address] Sports Lawyer: Ramiro Mark MD Immature granulocytes/100 WBC (Bld) 1 % High 0 [facility] Comment on above: Performed By: #### Andres Arana CHELO, BMP #### [facility] [employer] [address] [place] [address] Sports Lawyer: Ramiro Mark MD Lymphocytes (Bld) [#/Vol] 0.77 10*3/uL Low 1.10-3.7 0 [facility] Comment on above: Performed By: #### Andres Arana, CHELO, BMP #### [address] [address] Sports Lawyer: Ramiro Mark MD Lymphocytes/100 WBC (Bld) 6 % Low 24-43 [facility] Comment on above: Performed By: #### Andres G, CHELO, BMP #### [address] [address] Sports Lawyer: Ramiro Mark MD MCH (RBC) [Entitic mass] 29.3 pg Normal 25.2-33.5 [facility] Comment on above: Performed By: #### Andres Arana, CHELO, BMP #### [address] [address] Sports Lawyer: Ramiro Mark MD MCHC (RBC) [Mass/Vol] 34.7 g/dL Normal 28.4-34.8 [facility] Comment on above: Performed By: #### Andres Arana, CHELO, BMP #### [address] [address] Sports Lawyer: Ramiro Mark MD MCV (RBC) [Entitic vol] 84.4 fL Normal 82.6-102.9 [facility] Comment on above: Performed By: #### Andres Arana, CHELO, BMP #### [place] [address] Sports Lawyer: Ramiro Mark MD Monocytes (Bld) [#/Vol] 0.18 10*3/uL Normal 0.10-1.20 [facility] Comment on above: Performed By: #### Andres Arana, CHELO, BMP #### [facility] [employer] [address] [place] [address] Sports Lawyer: Ramiro Mark MD Monocytes/100 WBC (Bld) 1 % Low 3-12 M [facility] Comment on above: Performed By: #### M G, CHELO, BMP #### [facility] [employer] [address] [place] [address] Sports Lawyer: Ramiro Mark MD Neutrophil (Seg) 91 % High 36-65 [facility] Comment on above: Performed By: #### Andres G, CHELO, BMP #### [facility] [address] [place] [address] Sports Lawyer: Ramiro Mark MD NRBC Automated 0.0 per 100 WBC Normal 0.0 [facility] Comment on above: Performed By: #### Andres Arana, CHELO, BMP #### [facility] [employer] [address] [place] [address] Sports Lawyer: Ramiro Mark MD Platelet mean volume (Bld) [Entitic vol] 10.9 fL Normal 8.1-13.5 [facility] Comment on above: Performed By: #### Andres Arana, CHELO, BMP #### [facility] [employer] [address] [place] [address] Sports Lawyer: Ramiro Mark MD Platelets (Bld) [#/Vol] 201 10*3/uL Normal 138-453 [facility] Comment on above: Performed By: #### Andres Arana, CHELO, BMP #### [facility] [employer] [address] [place] [address] Sports Lawyer: Ramiro Mark MD RBC (Bld) [#/Vol] 4.41 10*6/uL Normal 4.21-5.77 [facility] Comment on above: Performed By: #### Andres Arana, CHELO, BMP #### [facility] [employer] [address] [place] [address] Sports Lawyer: Ramiro Mark MD WBC (Bld) [#/Vol] 13.2 10*3/uL High 3.5-11.3 [facility] Comment on above: Performed By: #### Andres Arana, CHELO, BMP #### [facility] [employer] [address] [place] [address] Sports Lawyer: Ramiro Mark MD Abs. Basophil 0.06 k/uL Normal 0.00-0.20 [facility] Comment on above: Performed By: #### B MP, LIVP, TROPI, CDP, MG #### [address] [place], [facility]83 Sports Lawyer: Ramiro Santillan MD Abs.Imm.Granulocyte 0.03 k/uL Normal 0.00-0.30 [facility] Comment on above: Performed By: #### B MP, LIVP, TROPI, CDP, MG #### [address] [place] [phone] Sports Lawyer: Ramiro Santillan MD Abs.Neutrophil (Seg) 5.80 k/uL Normal 1.50-8.10 [facility] Comment on above: Performed By: #### B MP, LIVP, TROPI, CDP, MG #### [address] [place], [facility]83 Sports Lawyer: Ramiro Santillan MD Basophils/100 WBC (Bld) 1 % Normal 0-2 [facility] Comment on above: Performed By: #### B MP, LIVP, TROPI, CDP, MG #### [address] [place], [facility]83 Sports Lawyer: Ramiro Santillan MD Eosinophils (Bld) [#/Vol] 0.17 10*3/uL Normal 0.00-0.4 4 [facility] Comment on above: Performed By: #### B MP, LIVP, TROPI, CDP, MG #### [address] [place], [facility]83 Sports Lawyer: Ramiro Santillan MD Eosinophils/100 WBC (Bld) 2 % Normal 1-4 [facility] Comment on above: Performed By: #### B MP, LIVP, TROPI, CDP, MG #### [facility] [address] [place], [place] [phone] Sports Lawyer: Ramiro Santillan MD Erythrocyte distribution width (RBC) [Ratio] 13.4 % Normal 11.8-14.4 [facility] Comment on above: Performed By: #### B MP, LIVP, TROPI, CDP, MG #### [facility] [address] [place], [facility]83 Sports Lawyer: Ramiro Santillan MD Hematocrit (Bld) [Volume fraction] 36.5 % Low 40.7-50.3 [facility] Comment on above: Performed By: #### B MP, LIVP, TROPI, CDP, MG #### [address] [place], [facility]83 Sports Lawyer: Ramiro Santillan MD Hemoglobin (Bld) [Mass/Vol] 13.0 g/dL Normal 13.0-17. 0 [facility] Comment on above: Performed By: #### B MP, LIVP, TROPI, CDP, MG #### [address] [place], [facility]83 Sports Lawyer: Ramiro Santillan MD Immature granulocytes/100 WBC (Bld) 0 % Normal 0 [facility] Comment on above: Performed By: #### B MP, LIVP, TROPI, CDP, MG #### [address] [place], [facility]83 Sports Lawyer: Ramiro Santillan MD Lymphocytes (Bld) [#/Vol] 1.95 10*3/uL Normal 1.10-3.7 0 [facility] Comment on above: Performed By: #### B MP, LIVP, TROPI, CDP, MG #### [facility] [address] [place], [place] [phone] Sports Lawyer: Ramiro Santillan MD Lymphocytes/100 WBC (Bld) 23 % Low 24-43 [facility] Comment on above: Performed By: #### B MP, LIVP, TROPI, CDP, MG #### [address] [place], [facility]83 Sports Lawyer: Ramiro Santillan MD MCH (RBC) [Entitic mass] 29.6 pg Normal 25.2-33.5 [facility] Comment on above: Performed By: #### B MP, LIVP, TROPI, CDP, MG #### [address] [place], [facility]83 Sports Lawyer: Ramiro Santillan MD MCHC (RBC) [Mass/Vol] 35.6 g/dL High 28.4-34.8 [facility] Comment on above: Performed By: #### B MP, LIVP, TROPI, CDP, MG #### [address] [place], [facility]83 Sports Lawyer: Ramiro Santillan MD MCV (RBC) [Entitic vol] 83.1 fL Normal 82.6-102.9 [facility] Comment on above: Performed By: #### B MP, LIVP, TROPI, CDP, MG #### [address] [place], [facility]83 Sports Lawyer: Ramiro Santillan MD Monocytes (Bld) [#/Vol] 0.54 10*3/uL Normal 0.10-1.20 [facility] Comment on above: Performed By: #### B MP, LIVP, TROPI, CDP, MG #### [address] [place], [facility]83 Sports Lawyer: Ramiro Santillan MD Monocytes/100 WBC (Bld) 6 % Normal 3-12 M [facility] Comment on above: Performed By: #### B MP, LIVP, TROPI, CDP, MG #### [address] [place], [facility]83 Sports Lawyer: Ramiro Santillan MD Neutrophil (Seg) 68 % High 36-65 [facility] Comment on above: Performed By: #### B MP, LIVP, TROPI, CDP, MG #### [facility] [address] [place], [place] [phone] Sports Lawyer: Ramiro Santillan MD NRBC Automated 0.0 per 100 WBC Normal 0.0 [facility] Comment on above: Performed By: #### B MP, LIVP, TROPI, CDP, MG #### [facility] [address] [place], [place] [phone] Sports Lawyer: Ramiro Santillan MD Platelet mean volume (Bld) [Entitic vol] 10.4 fL Normal 8.1-13.5 [facility] Comment on above: Performed By: #### B MP, LIVP, TROPI, CDP, MG #### [address] [place], [facility]83 Sports Lawyer: Ramiro Santillan MD Platelets (Bld) [#/Vol] 212 10*3/uL Normal 138-453 [facility] Comment on above: Performed By: #### B MP, LIVP, TROPI, CDP, MG #### [address] [place], [place] [phone] Sports Lawyer: Ramiro Santillan MD RBC (Bld) [#/Vol] 4.39 10*6/uL Normal 4.21-5.77 [facility] Comment on above: Performed By: #### B MP, LIVP, TROPI, CDP, MG #### [address] [place], [place] [phone] Sports Lawyer: Ramiro Santillan MD WBC (Bld) [#/Vol] 8.6 10*3/uL Normal 3.5-11.3 [facility] Comment on above: Performed By: #### B MP, LIVP, TROPI, CDP, MG #### [address] [place] [address] Sports Lawyer: Ramiro Santillan MD CKon 01-19-2024 CK [Catalytic activity/Vol] 226 U/L 39 - 308 U/L [facility] CSF Cell Counton 01-19-2024 Appearance (U) Clear Normal [facility] Comment on above: Performed By: #### C TP, CGLU, CFVD, MEVP, CFCNT ####[address] [address] Lab Director: Ramiro Mark MD#### [place] ####[facility] [id number] [place], [place] [id number] Lab Director: Wil Swanson MD RBC (Bld) [#/Vol] 0 10*6/uL Normal 0 [facility] Comment on above: Performed By: #### C TP, CGLU, CFVD, MEVP, CFCNT ####[address] [address] Lab Director: Ramiro Mark MD#### [place] ####[facility] [address] [place] [address] Lab Director: Wil Swanson MD Tube Number 3 Normal [facility] Comment on above: Performed By: #### C TP, CGLU, CFVD, MEVP, CFCNT ####[facility] [address] [place] [address] Lab Director: Ramiro Mark MD#### [place] ####[facility] [id number] [place] [address] Lab Director: Wil Swanson MD WBC (Bld) [#/Vol] 0 10*3/uL Normal <5 [facility] Comment on above: Performed By: #### C TP, CGLU, CFVD, MEVP, CFCNT ####[facility] [address] [place] [address] Lab Director: Ramiro Mark MD#### DESHAUN, TAMMYSF ####[facility] [address] [place], [place] [id number] lab Director: Wil Swanson MD Xanthochromia ABSENT Normal [facility] Comment on above: Performed By: #### C TP, CGLU, CFVD, MEVP, CFCNT ####[facility] [id number] [place] [address] lab Director: Ramiro Mark MD#### TAMMY MEADESF ####[facility] [address] [place] [address] lab Director: Wil Swanson MD Volume 12 mL Normal [facility] Comment on above: Performed By: #### C TP, CGLU, CFVD, MEVP, CFCNT ####[facility] [address] [place] [address] lab Director: Ramiro Mark MD#### DESHAUN, TAMMYSF ####[facility] [address] [place] [address] lab Director: Wil Swanson MD CT HEAD WO CONTRASTon 2023 CT HEAD WO CONTRAST EXAMINATION: CT OF THE HEAD WITHOUT CONTRAST 01/18/2024 9:46 pm TECHNIQUE: CT of the head was performed without the administration of intravenous contrast. Automated exposure control, iterative reconstruction, and/or weight based adjustment of the mA/kV was utilized to reduce the radiation dose to as low as reasonably achievable. COMPARISON: Noncontrast CT scan of the head on 04/19/2022. HISTORY: ORDERING SYSTEM PROVIDED HISTORY: Stroke alert, left-sided symptoms, aphasia, headache, mild change in sensation TECHNOLOGIST PROVIDED HISTORY: Stroke alert, left-sided symptoms, aphasia, headache, mild change in sensation Decision Support Exception - unselect if not [...] the orbits demonstrate no acute abnormality. SINUSES: In the right sphenoidal sinus there is a small oval masslike structure with partial calcification measuring 1.76 x 1.01 cm, likely to be sequela of chronic sinusitis, and it is unchanged as compared to previous CT scan on 04/19/2022. SOFT TISSUES/SKULL: No acute abnormality of the visualized skull or soft tissues. IMPRESSION: No acute intracranial abnormality. No intracranial hemorrhage. The preliminary report was conveyed verbally to Dr. Steve Estrada, by CORE associate,Daija Benson at 11:07 p.m. on 01/18/2024. Interpreted by: Ashley Cintron MD Signed by: Ashley Cintron MD 01/19/24 Final result Normal [facility] CTA HEAD NECK W CONTRASTon 0 01-19-2024 CTA HEAD NECK W CONTRAST EXAMINATION: CTA OF THE HEAD AND NECK WITH CONTRAST 01/18/2024 9:52 pm: TECHNIQUE: CTA of the head and neck was performed with the administration of intravenous contrast. Multiplanar reformatted images are provided for review. MIP images are provided for review. Stenosis of the internal carotid arteries measured using NASCET criteria. Automated exposure control, iterative reconstruction, and/or weight based adjustment of the mA/kV was utilized to reduce the radiation dose to as low as reasonably achievable. COMPARISON: None. HISTORY: ORDERING SYSTEM PROVIDED HISTORY: Stroke alert, mild aphasia, left-sided symptoms, headache, changes to sensation TECHNOLOGIST PROVIDED HISTORY: Stroke alert, mild aphasia, left-sided symptoms, headache, changes to sensation Decision Support Exception - unselect if not a suspected or confirmed emergency medical condition->Emergen cy Medical Condition (MA) FINDINGS: CTA NECK: AORTIC ARCH/ARCH VESSELS: No dissection or arterial injury. No significant stenosis of the brachiocephalic or subclavian arteries. CAROTID ARTERIES: No dissection, arterial injury, or hemodynamically significant stenosis by NASCET criteria. Atherosclerotic calcifications are seen in the right carotid bulbs and proximal ICA. VERTEBRAL ARTERIES: No dissection, arterial injury, or significant stenosis. SOFT TISSUES: The lung apices are clear. No cervical or superior mediastinal lymphadenopathy. The larynx and pharynx are unremarkable. No acute abnormality of the salivary and thyroid glands. Mucosal thickening is seen in this sphenoid sinus. BONES: No acute osseous abnormality. CTA HEAD: ANTERIOR CIRCULATION: No significant stenosis of the intracranial internal carotid, anterior cerebral, or middle cerebral arteries. No aneurysm. POSTERIOR CIRCULATION: No significant stenosis of the vertebral, basilar, or posterior cerebral arteries. No aneurysm. OTHER: No dural venous sinus thrombosis on this non-dedicated study. BRAIN: No mass effect or midline shift. No extra-axial fluid collection. The winkler-white differentiation is maintained. IMPRESSION: 1. No evidence of arterial stenosis or occlusion in the head or neck. 2. No acute intracranial abnormality. 3. Sphenoid sinus disease. Interpreted by: Daniel Ramos MD Signed by: Daniel Ramos MD 01/18/24 Final result Normal [facility] Calcium, Ionicon 01-19-2024 Calcium [Moles/Vol] 1.13 mmol/L Normal 1.13-1.33 [facility] Comment on above: Performed By: #### M G, CHELO, BMP #### [facility] [employer] [address] [place] [address] Sports Lawyer: Ramiro Mark MD Calcium, Ionizedon Calcium.ionized (Bld) [Moles/Vol] 1.13 mmol/L 1.13 - 1.33 mmol/L [facility] Cell Count with Differential , CSFon 01-19-2024 Appearance (CSF) Clear [facility] Nucleated cells Manual cnt (Body fld) [#/Vol] 0 NINF [facility] RBC Manual cnt (Body fld) [#/Vol] 0 0 cells/uL [facility] Specimen volume (CSF) 12 mL [facility] Tube number Nom (CSF) [ID] 3 [facility] Xanthochromia Ql (CSF) ABSENT [facility] Creatine Kinaseon 01-19-2024 CK [Catalytic activity/Vol] 226 U/L Normal 39-308 [facility] Comment on above: Performed By: #### T ROPI, NIK, CDP, ALCB, CRP, SED, GLYHGB, CK, BH, BMPX ####[employer] [place] [address] Lab Director: Ramiro Mark MD DRUG SCREEN MULTI URINEon Amphetamines Ql (U) Negative NEGATIVE [facility] Barbiturates Screen Ql (U) Negative NEGATIVE [facility] Benzodiazepines Ql (U) Negative NEGATIVE [facility] Cannabinoids Screen Ql (U) Negative NEGATIVE [facility] Cocaine Ql (U) Negative NEGATIVE [facility] fentaNYL Ql (U) Negative NEGATIVE [facility] Methadone Ql (U) Negative NEGATIVE [facility] Opiates Screen Ql (U) Negative NEGATIVE [facility] oxyCOD[facility] Ql (U) Negative NEGATIVE [facility] Phencyclidine Ql (U) Negative NEGATIVE [facility] Test Information Assay provides rapid clinical screening only. Presumptive positive results for legal purposes should be confirmed by another method. To request confirmation, please call the lab within 7 days of sample submission. [facility] [employer] [facility], Abuse, Uron 2023 Amphetamine(s),Ur Negative Normal NEG [facility] Comment on above: Result Comment: Cuto ff: 1000 ng/mL Performed By: #### D AU #### [employer] [address] [place], [place] [id number] Sports Lawyer: Ramiro Mark MD Barbiturate(s),Ur Negative Normal [facility] Comment on above: Result Comment: Cuto ff: 200 ng/ml Performed By: #### D AU #### [employer] [facility] [place] [address] Sports Lawyer: Ramiro Mark MD Benzodiazepine(s) Negative Normal [facility]G [facility] Comment on above: Result Comment: Cuto ff: 200 ng/ml Performed By: #### D AU #### [address] [address] Sports Lawyer: Ramiro Mark MD Cannabinoid(s),Ur Negative Normal NEG [facility] Comment on above: Result Comment: Cuto ff: 50 ng/ml Performed By: #### D AU #### [address] [address] Sports Lawyer: Ramiro Mark MD Cocaine Metabolite Negative Normal NEG [facility] Comment on above: Result Comment: Cuto ff: 300 ng/ml Performed By: #### D AU #### [address] [address] Sports Lawyer: Ramiro Mark MD Fentanyl, Urine Negative Normal NEG [facility] Comment on above: Result Comment: Cuto ff: 5 ng/ml Performed By: #### D AU #### [address] [address] Sports Lawyer: Ramiro Mark MD Interpretive Info Assay provides rapid clinical screening only. Presumptive positive results for Normal [facility] Comment on above: Result Comment: lega l purposes should be confirmed by another method. To request confirmation, please call the lab within 7 days of sample submission. Performed By: #### D AU #### [address] [address] Sports Lawyer: Ramiro Mark MD Methadone Ql (U) Negative Normal NEG [facility] Comment on above: Result Comment: Cuto ff: 300 ng/ml Performed By: #### D AU #### [address] [address] Sports Lawyer: Ramiro Mark MD Opiate(s), Ur Negative Normal NEG [facility] Comment on above: Result Comment: Cuto ff: 300 ng/ml Performed By: #### D AU #### [address] [address] Sports Lawyer: Ramiro Mark MD Oxycodone, Urine Negative Normal NEG [facility] Comment on above: Result Comment: Cuto ff: 100 ng/ml Performed By: #### D AU #### [facility] [address] [place] [phone] Sports Lawyer: Ramiro Mark MD Phencyclidine, Ur Negative Normal NEG [facility] Comment on above: Result Comment: Cuto ff: 25 ng/ml Performed By: #### D AU #### [employer] [address] [place] [phone] Sports Lawyer: Ramiro Mark MD Ethanolon 01-19-2024 Ethanol percent <0.010 NINF - 0.010 % [facility] Ethanolamine [Mass/Vol] mg/dL NINF - 10 mg/dL [facility] Ethanol Alcoholon 01-19-2024 Ethanol [Mass/Vol] mg/dL Normal <10 [facility] Comment on above: Performed By: #### CHELO Purcell BMP #### [facility] [address] [place] [address] [phone] Sports Lawyer: Ramiro Mark MD Ethanol percent <0.010 Normal <0.010 [facility] Comment on above: Performed By: ###CHELO Guerra, BMP #### [facility] [address] [place] [address] [phone] Sports Lawyer: Ramiro Mark MD Glucose (POC)on 01-19-2024 Glucose [Mass/Vol] 199 mg/dL High 74-100 [facility] Glucose CSFon 01-19-2024 Glucose (CSF) [Mass/Vol] 194 mg/dL High 40 - 70 mg/dL [facility] Glucose, Whole Bloodon 01-18 Glucose [Mass/Vol] 232 mg/dL High 74-100 [facility] Glucose [Mass/Vol] 230 mg/dL High 74-100 [facility] Glucose,CSFon 01-19-2024 Glucose [Mass/Vol] 194 mg/dL High 40-70 [facility] Comment on above: Performed By: #### C TP, CGLU, CFVD, MEVP, CFCNT ####[facility] [address] [place] [address] lab Director: Ramiro Mark MD#### ALYMCT, AWNCSF ####[facility] [address] [place] [address] Lab Director: Wil Swanson MD Glucose,Whole Bloodon 2023 Glucose [Mass/Vol] 179 mg/dL High 75-110 [facility] Glucose [Mass/Vol] 257 mg/dL High 75-110 [facility] Glucose [Mass/Vol] 255 mg/dL High 75-110 [facility] Glucose [Mass/Vol] 235 mg/dL High 75-110 [facility] Glucose [Mass/Vol] 178 mg/dL High 75-110 [facility] Glucose [Mass/Vol] 190 mg/dL High 75-110 [facility] Glucose [Mass/Vol] 235 mg/dL High 75-110 [facility] Glucose [Mass/Vol] 269 mg/dL High 75-110 [facility] Glucose [Mass/Vol] 303 mg/dL High 75-110 [facility] Glucose [Mass/Vol] 297 mg/dL High 75-110 [facility] Glucose [Mass/Vol] 375 mg/dL High 75-110 [facility] Glucose [Mass/Vol] 496 mg/dL Critically high 75-110 [facility] Glucose [Mass/Vol] 548 mg/dL Critically high 75-110 [facility] Glucose [Mass/Vol] 506 mg/dL Critically high 75-110 [facility] Comment on above: Result Comment: Crit ical Noted Guidance for puncture of Lum bar spineon 01-19-2024 Radiology Study observation (narrative) [facility] HSV DNA, PCRon 01-19-2024 HSV source .CSF Normal [facility] Comment on above: Performed By: #### M G, CHELO, BMP #### [facility] [address] [place], [place] [phone] Sports Lawyer: Ramiro Mark MD Hemoglobin A1Con 01-19-2024 Glucose [Mass/Vol] 298 mg/dL Normal [facility] Comment on above: Result Comment: The ADA and AACC recommend providing the estimated average glucose result to permit better patient understanding of their HBA1c result. Performed By: #### T ROPI, NIK, CDP, ALCB, CRP, SED, GLYHGB, CK, BH, BMPX ####[facility] [address] [place], [place] [phone] Lab Director: Ramiro Mark MD HbA1c (Bld) [Mass fraction] 12.0 % High 4.0-6.0 [facility] Comment on above: Performed By: #### T ROPI, NIK, CDP, ALCB, CRP, SED, GLYHGB, CK, BH, BMPX ####[facility] [employer] [facility] [address] [place], [place] [phone] Lab Director: Ramiro Mark MD Average glucose Estimated from glycated hemoglobin (Bld) [Mass/Vol] 298 mg/dL [facility] HbA1c (Bld) [Mass fraction] 12.0 % High 4.0 - 6. 0 % [facility] Interpretation and review of laboratory results Abnormal [facility] Lactic Acidon 01-19-2024 Lactic Acid,Whole Bl 1.2 mmol/L Normal 0.7-2.1 [facility] Comment on above: Performed By: #### L ACTIC ####[employer] [address] [place], [place] [phone] Lab Director: Ramiro Mark MD Lactic Acid, Whole Blood 1.2 mmol/L 0.7 - 2.1 mmol/L [facility] Lactate [Moles/Vol] 2.2 mmol/L Normal 0.5-2.2 [facility] Comment on above: Performed By: #### L ACTIC #### [facility] [address] [place] [address] Sports Lawyer: Ramiro Santillan MD Lactate (BldV) [Moles/Vol] 2.2 mmol/L 0 .5 - 2.2 mmol/L [facility] Lactate [Moles/Vol] 2.8 mmol/L High 0.5-2.2 [facility] Comment on above: Performed By: #### L ACTIC #### [facility] [address] [place] [address] Sports Lawyer: Ramiro Santillan MD Liver Profileon 01-19-2024 Albumin [Mass/Vol] 3.9 g/dL Normal 3.5-5.2 [facility] Comment on above: Performed By: #### B MP, LIVP, TROPI, CDP, MG #### [facility] [address] [place] [address] [place] [place], [place] [phone] Sports Lawyer: Ramiro Santillan MD Albumin/Glob Ratio 1.3 Normal 1.0-2.5 [facility] Comment on above: Performed By: #### B MP, LIVP, TROPI, CDP, MG #### [address] [place] [address] Sports Lawyer: Ramiro Santillan MD Alkaline Phos 105 U/L Normal 40-129 [facility] Comment on above: Performed By: #### B MP, LIVP, TROPI, CDP, MG #### [facility] [address] [place] [address] Sports Lawyer: Ramiro Santillan MD ALT [Catalytic activity/Vol] 18 U/L Normal 5-41 [facility] Comment on above: Performed By: #### B MP, LIVP, TROPI, CDP, MG #### [facility] [address] [place] [address] [place], [place] [phone] Sports Lawyer: Ramiro Santillan MD AST [Catalytic activity/Vol] 16 U/L Normal <40 [facility] Comment on above: Performed By: #### B MP, LIVP, TROPI, CDP, MG #### [address] [place], [place] [phone] Sports Lawyer: Ramiro Santillan MD Bilirubin [Mass/Vol] 0.2 mg/dL Low 0.3-1.2 [facility] Comment on above: Performed By: #### B MP, LIVP, TROPI, CDP, MG #### [address] [place], [place] [phone] Sports Lawyer: Ramiro Santillan MD Bilirubin, Indirect Can not be calculated Normal 0.0-1.0 [facility] Comment on above: Performed By: #### B MP, LIVP, TROPI, CDP, MG #### [address] [place], [place] [phone] Sports Lawyer: Ramiro Santillan MD Bilirubin.indirect [Mass/Vol] mg/dL Normal <0.3 [facility] Comment on above: Performed By: #### B MP, LIVP, TROPI, CDP, MG #### [address] [place], [place] [phone] Sports Lawyer: Ramiro Santillan MD Protein [Mass/Vol] 7.0 g/dL Normal 6.4-8.3 [facility] Comment on above: Performed By: #### B MP, LIVP, TROPI, CDP, MG #### [address] [place] [address] Sports Lawyer: Ramiro Santillan MD MR Brain WO and W contrast I Akash 01-19-2024 [facility] Radiology Study observation (narrative) [facility] MR Brain WO and W contrast I VOrdered By: Daniel Ramos on 01-19-2024 [facility] Work Phone: MRI BRAIN W WO CONTRASTon MRI BRAIN W WO CONTRAST EXAMINATION: MRI OF THE BRAIN WITHOUT AND WITH CONTRAST 01/19/2024 3:13 pm TECHNIQUE: Multiplanar multisequence MRI of the head/brain was performed without and with the administration of intravenous contrast. COMPARISON: CT scan January 18, 2024. HISTORY: ORDERING SYSTEM PROVIDED HISTORY: rule out encephalitis TECHNOLOGIST PROVIDED HISTORY: rule out encephalitis What is the sedation requirement?->None Reason for Exam: rule out encephalitis FINDINGS: INTRACRANIAL STRUCTURES/VENTRIC LES: There is no acute infarct. No mass effect or midline shift. No evidence of an acute intracranial hemorrhage. The ventricles and sulci are normal in size and configuration. The sellar/suprasellar regions appear unremarkable. The normal signal voids within the major intracranial vessels appear maintained. No abnormal focus on brain or meningeal enhancement is seen. High FLAIR signal changes are seen in the perimesencephalic cistern and bilateral cerebral convexities. ORBITS: The visualized portion of the orbits demonstrate no acute abnormality. SINUSES: The visualized paranasal sinuses and mastoid air cells demonstrate no acute abnormality. BONES/SOFT TISSUES: The bone marrow signal intensity appears normal. The soft tissues demonstrate no acute abnormality. IMPRESSION: 1. High FLAIR signal changes are seen in the perimesencephalic cistern and bilateral cerebral convexities. Patient is intubated. The finding could represent manifestation of increased oxygen tension in the CSF versus less likely due early meningitis versus remote subarachnoid hemorrhage. These findings are nonspecific, but can be seen in the setting of meningitis. Correlation with CSF sampling is recommended. 2. No abnormal focus on brain or meningeal enhancement. Interpreted by: Daniel Ramos MD Signed by: Daniel Ramos MD 01/19/24 Final result Normal [facility] MRSA DNA Probe, Nasalon - MRSA, DNA, Nasal Negative NEGATIVE [facility] Specimen Description .NASAL SWAB [facility] MRSA, DNA, Nasalon MRSA, DNA, Nasal Negative Normal NEG [facility] Comment on above: Result Comment: NEGA TIVE: MRSA DNA not detected by nucleic acid amplification. Results should be used as an adjunct to nosocomial control efforts to identify patients needing enhanced precautions. The test is not intended to identify patients with staphylococcal infections. Results should not be used to guide or monitor treatment for MRSA infections. Performed By: #### M RSANO ####[facility] [address] [place] [address] Lab Director: Ramiro Mark MD Specimen Description .NASAL SWAB Normal [facility] Comment on above: Performed By: #### M RSANO ####[facility] [address] [place] [address] Lab Director: Ramiro Mark MD [facility] Magnesium [Mass/Vol] 2.1 mg/dL Normal 1.6-2.6 [facility] Comment on above: Performed By: #### M G, CHELO, BMP ####[address] [address] Lab Director: Ramiro Mark MD Magnesium [Mass/Vol] 2.1 mg/dL 1.6 - 2 .6 mg/dL [facility] Magnesium [Mass/Vol] 2.0 mg/dL Normal 1.6-2.6 [facility] Comment on above: Performed By: #### P TT, CHELO, MG, BMP, PT, PRCAL ####[address] [address] Lab Director: Ramiro Mark MD Magnesium [Mass/Vol] 2.0 mg/dL 1.6 - 2 .6 mg/dL [facility] Magnesium [Mass/Vol] 2.2 mg/dL Normal 1.6-2.6 [facility] Comment on above: Performed By: #### B MP, LIVP, TROPI, CDP, MG #### [facility] [address] [place] [address] Sports Lawyer: Ramiro Santillan MD Meningitis Encephalitis Pane l CSF, Molecularon 01-19-2024 C. gattii+neoformans DNA MEETA+non-probe Ql (CSF) Not detected Not Detected [facility] CMV DNA MEETA+non-probe Ql (CSF) Not detected Not Detected [facility] E. coli K1 DNA MEETA+non-probe Ql (CSF) Not detected Not Detected [facility] Enterovirus RNA MEETA+non-probe Ql (CSF) Not detected Not Detected [facility] H. influenzae DNA MEETA+non-probe Ql (CSF) Not detected Not Detected [facility] HHV 6 DNA MEETA+non-probe Ql (CSF) Not detected Not Detected [facility] HSV 1 DNA MEETA+non-probe Ql (CSF) Not detected Not Detected [facility] HSV 2 DNA MEETA+non-probe Ql (CSF) Not detected Not Detected [facility] L. monocytogenes DNA MEETA+non-probe Ql (CSF) Not detected Not Detected [facility] N. meningitidis DNA MEETA+non-probe Ql (CSF) Not detected Not Detected [facility] Parechovirus A RNA MEETA+non-probe Ql (CSF) Not detected Not Detected [facility] S. agalactiae DNA MEETA+non-probe Ql (CSF) Not detected Not Detected [facility] S. pneumoniae DNA MEETA+non-probe Ql (CSF) Not detected Not Detected [facility] Specimen Description .CSF [facility] VZV DNA MEETA+non-probe Ql (CSF) Not detected Not Detected [facility] Meningitis Panelon 4 C. neoformans/gattii Not detected Normal NOTDET [facility] Comment on above: Result Comment: Perf ormed by multiplexed nucleic acid assay. Performed By: #### C TP, CGLU, CFVD, MEVP, CFCNT ####[employer] [address] [place] [address] Lab Director: Ramiro Mark MD#### DESHAUN, REJINCSF ####[facility] [address] [place] [address] Lab Director: Wil Swanson MD Cytomegalovirus Not detected Normal NOTDET [facility] Comment on above: Performed By: #### C TP, CGLU, CFVD, MEVP, CFCNT ####[address] [address] Lab Director: Ramiro Mark MD#### ALYMCT, AWNCSF ####[facility] [address] [place] [address] Lab Director: Wil Swanson MD Enterovirus Not detected Normal [facility] Comment on above: Performed By: #### C TP, CGLU, CFVD, MEVP, CFCNT ####[address] [id number] Lab Director: Ramiro Mark MD#### ARTURYMCHUCK, REJINCSF ####[facility] [address] [place] [address] Lab Director: Wil Swanson MD Escherichia coli K1 Not detected Normal [facility] Comment on above: Performed By: #### C TP, CGLU, CFVD, MEVP, CFCNT ####[address] [phone] Lab Director: Ramiro Mark MD#### DESHAUN, REJINCSF ####[facility] [address] [place] [address] Lab Director: Wil Swanson MD Haemoph. influenzae Not detected Normal [facility] Comment on above: Performed By: #### C TP, CGLU, CFVD, MEVP, CFCNT ####[address] [id number] Lab Director: Ramiro Mark MD#### ARTURYMCT, AWNCSF ####[facility] [address] [place] [address] Lab Director: Wil Swanson MD HSV-1 Not detected Normal [facility] Comment on above: Performed By: #### C TP, CGLU, CFVD, MEVP, CFCNT ####[address] [address] Lab Director: Ramiro Mark MD#### ARTURYMCT, REJINCSF ####[facility] [address] [place] [address] Lab Director: Wil Swanson MD HSV-2 Not detected Normal [facility] Comment on above: Performed By: #### C TP, CGLU, CFVD, MEVP, CFCNT ####[address] [address] Lab Director: Ramiro Mark MD#### CHESTER MEADE ####[address] [address] Lab Director: Wil Swanson MD Human herpesvirus 6 Not detected Normal [facility] Comment on above: Performed By: #### C TP, CGLU, CFVD, MEVP, CFCNT ####[address] [address] Lab Director: Ramiro Mark MD#### AHSAN MEADEF ####[facility] [address] [place] [address] Lab Director: Wil Swanson MD Human parechovirus Not detected Normal [facility] Comment on above: Performed By: #### C TP, CGLU, CFVD, MEVP, CFCNT ####[address] [address] Lab Director: Ramiro Mark MD#### DESHAUN, REJINCSF ####[facility] [address] [place] [address] [id number] Lab Director: Wil Swanson MD List. monocytogenes Not detected Normal [facility] Comment on above: Performed By: #### C TP, CGLU, CFVD, MEVP, CFCNT ####[facility] [address] [place] [address] Lab Director: Ramiro Mark MD#### CHESTER MEADE ####[facility] [address] [place] [address] Lab Director: Wil Swanson MD Neis. meningitidis Not detected Normal [facility] Comment on above: Performed By: #### C TP, CGLU, CFVD, MEVP, CFCNT ####[facility] [address] [place] [address] Lab Director: Ramiro Mark MD#### CHESTER MEADE ####[facility] [address] [place] [address] Lab Director: Wil Swanson MD Strep. agalactiae Not detected Normal [facility] Comment on above: Performed By: #### C TP, CGLU, CFVD, MEVP, CFCNT ####[facility] [address] [place] [address] Lab Director: Ramiro Mark MD#### CHESTER MEADE ####[facility] [address] [place] [address] Lab Director: Wil Swanson MD Strep. pneumoniae Not detected Normal [facility] Comment on above: Performed By: #### C TP, CGLU, CFVD, MEVP, CFCNT ####[facility] [address] [place] [address] Lab Director: Ramiro Mark MD#### CHESTER MEADE ####[facility] [address] [place] [address] Lab Director: Wil Swanson MD Varicella-zoster Not detected Normal [facility] Comment on above: Performed By: #### C TP, CGLU, CFVD, MEVP, CFCNT ####[facility] [address] [place] [address] lab Director: Ramiro Mark MD#### DESHAUN, TAMMYSF ####[facility] [address] [place] [address] lab Director: Wil Swanson MD Source: .CSF Normal [facility] Comment on above: Performed By: #### C TP, CGLU, CFVD, MEVP, CFCNT ####[facility] [address] [place] [address] [id number] lab Director: Ramiro Mark MD#### DESHAUN, TAMMYSF ####[facility] [address] [place] [address] lab Director: Wil Swanson MD Myoglobinon 01-19-2024 Myoglobin [Mass/Vol] 166 ng/mL High 28-72 [facility] Comment on above: Performed By: #### T ROPI, NIK, CDP, ALCB, CRP, SED, GLYHGB, CK, BH, BMPX ####[facility] [address] [place] [address] [id number] lab Director: Ramiro Mark MD Myoglobin, Bloodon Myoglobin [Mass/Vol] 166 ng/mL High 28 - 72 ng/mL [facility] No Panel Informationon 01-18 [facility] Interpretation and review of laboratory results Abnormal [facility] Interpretation and review of laboratory results Abnormal [facility] Interpretation and review of laboratory results Abnormal [facility] Radiology Study observation (narrative) [facility] Interpretation and review of laboratory results Abnormal [facility] Glucose Fingerstickon Glucose [Mass/Vol] 77 mg/dL 75 - 110 mg/dL [facility] Glucose [Mass/Vol] 111 mg/dL High 75 - 110 mg/dL [facility] Interpretation and review of laboratory results Abnormal [facility] Glucose [Mass/Vol] 179 mg/dL High 75 - 110 mg/dL [facility] Interpretation and review of laboratory results Abnormal [facility] Glucose [Mass/Vol] 257 mg/dL High 75 - 110 mg/dL [facility] Interpretation and review of laboratory results Abnormal [facility] Glucose [Mass/Vol] 255 mg/dL High 75 - 110 mg/dL [facility] Interpretation and review of laboratory results Abnormal [facility] Glucose [Mass/Vol] 235 mg/dL High 75 - 110 mg/dL [facility] Interpretation and review of laboratory results Abnormal [facility] Glucose [Mass/Vol] 178 mg/dL High 75 - 110 mg/dL [facility] Interpretation and review of laboratory results Abnormal [facility] Glucose [Mass/Vol] 190 mg/dL High 75 - 110 mg/dL [facility] Interpretation and review of laboratory results Abnormal [facility] Glucose [Mass/Vol] 235 mg/dL High 75 - 110 mg/dL [facility] Interpretation and review of laboratory results Abnormal [facility] Glucose [Mass/Vol] 269 mg/dL High 75 - 110 mg/dL [facility] Interpretation and review of laboratory results Abnormal [facility] Glucose [Mass/Vol] 303 mg/dL High 75 - 110 mg/dL [facility] Interpretation and review of laboratory results Abnormal [facility] Glucose [Mass/Vol] 297 mg/dL High 75 - 110 mg/dL [facility] Interpretation and review of laboratory results Abnormal [facility] Glucose [Mass/Vol] 496 mg/dL Critically high 75 - 1 10 mg/dL [facility] Glucose [Mass/Vol] 375 mg/dL High 75 - 110 mg/dL [facility] Glucose [Mass/Vol] 548 mg/dL Critically high 75 - 1 10 mg/dL [facility] Interpretation and review of laboratory results Abnormal [facility] Glucose [Mass/Vol] 506 mg/dL Critically high 75 - 1 10 mg/dL [facility] Interpretation and review of laboratory results Abnormal [facility] POCT Glucoseon 01-19-2024 Glucose [Mass/Vol] 199 mg/dL High 74 - 100 mg/dL [facility] PTon 01-19-2024 INR Coag (PPP) [Relative time] 1.1 {INR} Normal [facility] Comment on above: Result Comment: Therapeutic Range: Moderate Anticoagulant Intensity: INR = 2.0-3.0 High Anticoagulant Intensity: INR = 2.5-3.5 Performed By: #### P TT, CHELO, MG, BMP, PT, PRCAL ####[place] [id number] lab Director: Ramiro Mark MD PT Coag (PPP) [Time] 13.8 s Normal 11.7-14.9 [facility] Comment on above: Performed By: #### P TT, CHELO, MG, BMP, PT, PRCAL ####[place] 090602 [place] [id number] lab Director: Ramiro Mark MD Phosphoruson 01-19-2024 Phosphate [Mass/Vol] 3.8 mg/dL 2.5 - 4 .5 mg/dL [facility] Phosphate [Mass/Vol] 2.6 mg/dL 2.5 - 4 .5 mg/dL [facility] Phosphorus, Inorg.on 024 Phosphorus, Inorg. 3.8 mg/dL Normal 2.5-4.5 [facility] Comment on above: Performed By: #### M G, CHELO, BMP ####[facility] [address] [place], [place] [id number] lab Director: Ramiro Mark MD Phosphorus, Inorg. 2.6 mg/dL Normal 2.5-4.5 [facility] Comment on above: Performed By: #### P TT, CHELO, MG, BMP, PT, PRCAL ####[address] [place], [place] [phone] lab Director: Ramiro Mark MD Portable XR Chest AP single viewon 01-19-2024 [facility] RIS CONSOLIDATED [facility] RIS CONSOLIDATED [facility] RIS CONSOLIDATED [facility] Portable XR Chest AP single viewOrdered By: Sreedhar Mims on 01-19-2024 [facility] Work Phone: Portable XR Chest AP single viewOrdered By: Felix Adams on 01-19-2024 [facility] Work Phone: Procalcitoninon 01-19-2024 Procalcitonin 0.15 ng/mL High 0.00-0.09 [facility] Comment on above: Result Comment: Suspected Sepsis: <0.50 ng/mL Low likelihood of sepsis. 0.50-2.00 ng/mL Increased likelihood of sepsis. Antibiotics encouraged. >2.00 ng/mL High risk of sepsis/shock. Antibiotics strongly encouraged. Suspected Lower Resp Tract Infections: <0.24 ng/mL Low likelihood of bacterial infection. >0.24 ng/mL Increased likelihood of bacterial infection. Antibiotics encouraged. With successful antibiotic therapy, PCT levels should decrease rapidly. (Half-life of 24 to 36 hours.) Procalcitonin values from samples collected within the first 6 hours of systemic infection may still be low. Retesting may be indicated. Values from day 1 and day 4 can be entered into the Change in Procalcitonin Calculator (www.sfsnvc-gow-zyoqetpyqe.com) to determine the patient's Mortality Risk Prognosis In healthy neonates, plasma Procalcitonin (PCT) concentrations increase gradually after , reaching peak values at about 24 hours of age then decrease to normal values below 0.5 ng/mL by 48-72 hours of age. Performed By: #### P TT, CHELO, MG, BMP, PT, PRCAL ####[facility] [address] [place] [address] [id number] Lab Director: Ramiro Mark MD Interpretation and review of laboratory results Abnormal [facility] Procalcitonin [Mass/Vol] 0.15 ng/mL High 0.0 0 - 0.09 ng/mL [facility] Protein, CSFon 01-19-2024 Protein (CSF) [Mass/Vol] 89.1 mg/dL High 15. 0 - 45.0 mg/dL [facility] Protein, Total, [facility] Protein - CSF 89.1 mg/dL High 15.0-45.0 [facility] Comment on above: Performed By: #### C TP, CGLU, CFVD, MEVP, CFCNT ####[facility] [address] [place] [address] [id number] Lab Director: Ramiro Mark MD#### DESHAUN, AWNCSF ####MARRY [address] [place] [id number] Lab Director: Wil Swanson MD Protime-INRon 01-19-2024 INR Coag (PPP) [Relative time] 1.1 {INR} [facility] PT Coag (PPP) [Time] 13.8 s [facility] [employer] Resp Viral Panelon 4 Adenovirus Not detected Normal [facility] Comment on above: Performed By: #### R HEEL BOOM OPERATOR ####[address] [phone] Lab Director: MD Lakesha Moreno.parapertussis Not detected Normal [facility] Comment on above: Performed By: #### R HEEL BOOM OPERATOR ####[address] [place], [place] [phone] Director: Ramiro Mark MD Bordetella pertussis Not detected Normal [facility] Comment on above: Performed By: #### R HEEL BOOM OPERATOR ####[address] [phone] Director: Ramiro Mark MD Chlamyd.pneumoniae Not detected Normal [facility] Comment on above: Performed By: #### R HEEL BOOM OPERATOR ####[address] [phone] Director: Ramiro Mark MD Coronavirus 229E Not detected Normal [facility] Comment on above: Performed By: #### R HEEL BOOM OPERATOR ####[address] [address] Lab Director: Ramiro Mark MD Coronavirus HKU1 Not detected Normal [facility] Comment on above: Performed By: #### R HEEL BOOM OPERATOR ####[address] [phone] Director: Ramiro Mark MD Coronavirus NL63 Not detected Normal [facility] Comment on above: Performed By: #### R HEEL BOOM OPERATOR ####[address] [phone] Director: Ramiro Mark MD Coronavirus OC43 Not detected Normal [facility] Comment on above: Performed By: #### R HEEL BOOM OPERATOR ####[address] [place], [place] [phone] Director: Ramiro Mark MD Human Metapneumo Not detected Normal [facility] Comment on above: Performed By: #### R HEEL BOOM OPERATOR ####[address] [place], [place] [phone] Director: Ramiro Mark MD Influenza A Not detected Normal [facility] Comment on above: Performed By: #### R HEEL BOOM OPERATOR ####[address] [address] Lab Director: Ramiro Mark MD Influenza B Not detected Normal [facility] Comment on above: Performed By: #### R HEEL BOOM OPERATOR ####[address] [phone] Lab Director: Ramiro Mark MD Mycoplas.pneumoniae Not detected Normal [facility] Comment on above: Result Comment: Perf ormed by multiplexed nucleic acid assay. Performed By: #### R HEEL BOOM OPERATOR ####[address] [phone] Director: Ramiro Mark MD Parainfluenza 1 Not detected Normal [facility] Comment on above: Performed By: #### R HEEL BOOM OPERATOR ####[address] [phone] Director: Ramiro Mark MD Parainfluenza 2 Not detected Normal [facility] Comment on above: Performed By: #### R HEEL BOOM OPERATOR ####[address] [phone] Director: Ramiro Mark MD Parainfluenza 3 Not detected Normal [facility] Comment on above: Performed By: #### R HEEL BOOM OPERATOR ####[address] [phone] Director: Ramiro Mark MD Parainfluenza 4 Not detected Normal [facility] Comment on above: Performed By: #### R HEEL BOOM OPERATOR ####[facility] [address] [place], [place] [phone] Director: Ramiro Mark MD Resp Syncytial Virus Not detected Normal [facility] Comment on above: Performed By: #### R HEEL BOOM OPERATOR ####[facility] [place], [place] [phone] Director: Ramiro Mark MD Rhino/Enterovirus Not detected Normal [facility] Comment on above: Performed By: #### R HEEL BOOM OPERATOR ####[address] [place], [place] [phone] Director: Ramiro Mark MD SARS-CoV-2 (COVID-19) RNA MEETA+probe Ql (Unsp spec) Not detected Normal [facility] Comment on above: Performed By: #### R HEEL BOOM OPERATOR ####[address] [phone] Director: Ramiro Mark MD Source: .NASOPHARYNGEAL SWAB Normal [facility] Comment on above: Performed By: #### R HEEL BOOM OPERATOR ####[address] [phone] Director: Ramiro Mark MD Respiratory Panel, Molecular , with COVID-19 (Restricted: peds pts or suitable admitted adults)on 01-19-2024 Adenovirus DNA MEETA+non-probe Ql (Nph) Not detected Not Detected [facility] B. parapertussis [id number] DNA MEETA+non-probe Ql (Nph) Not detected Not Detected [facility] B. pertussis DNA MEETA+probe Ql (Unsp spec) Not detected Not Detected [facility] C. pneumoniae DNA MEETA+non-probe Ql (Nph) Not detected Not Detected [facility] FLUAV RNA MEETA+non-probe Ql (Nph) Not detected Not Detected [facility] FLUBV RNA MEETA+non-probe Ql (Nph) Not detected Not Detected [facility] HCoV 229E RNA MEETA+non-probe Ql (Nph) Not detected Not Detected [facility] HCoV HKU1 RNA MEETA+non-probe Ql (Nph) Not detected Not Detected [facility] HCoV NL63 RNA MEETA+non-probe Ql (Nph) Not detected Not Detected [facility] HCoV OC43 RNA MEETA+non-probe Ql (Nph) Not detected Not Detected [facility] hMPV RNA MEETA+non-probe Ql (Nph) Not detected Not Detected [facility] M. pneumoniae DNA MEETA+non-probe Ql (Nph) Not detected Not Detected [facility] Parainfluenza virus 1 RNA MEETA+non-probe Ql (Nph) Not detected Not Detected [facility] Parainfluenza virus 2 RNA MEETA+non-probe Ql (Nph) Not detected Not Detected [facility] Parainfluenza virus 3 RNA MEETA+non-probe Ql (Nph) Not detected Not Detected [facility] Parainfluenza virus 4 RNA MEETA+non-probe Ql (Nph) Not detected Not Detected [facility] Rhinovirus+Enterovirus RNA MEETA+non-probe Ql (Nph) Not detected Not Detected [facility] RSV RNA MEETA+non-probe Ql (Nph) Not detected Not Detected [facility] SARS-CoV-2 (COVID-19) RNA MEETA+non-probe Ql (Nph) Not detected Not Detected [facility] Specimen Description .NASOPHARYNGEAL SWAB [facility] Sedimentation Rateon 024 Sedimentation Rate 28 mm/Hr High 0-20 [facility] Comment on above: Result Comment: ADDE D ON Performed By: #### T ROPI, NIK, CDP, ALCB, CRP, SED, GLYHGB, CK, BH, BMPX ####[facility] [address] [place] [address] [facility] Director: Ramiro Mark MD ESR Photometric method (Bld) [Velocity] 28 High [facility] Interpretation and review of laboratory results Abnormal [facility] Surgical Pathology Reporton 01-19-2024 Surgical Pathology Report (NOTE) Path Number: [id number] INTERPRETATION Cerebrospinal fluid, lumbar puncture: Satisfactory for evaluation. NEGATIVE FOR MALIGNANCY. Electronically Signed Out Melissa Toscano. 01/20/2024 Source of Specimen: A: CEREBROSPINAL FLUID Clinical History No information given. Gross Description CEREBROSPINAL FLUID 3mL of clear colorless fluid. MICROSCOPIC DESCRIPTION Microscopic examination performed. Cytospin Slides x 1, Cytospin Slides x 1 Processing Lab: [address] [phone] Interpretation performed at [address] [phone] NONGYNECOLOGICAL CYTOPATHOLOGY CONSULTATION Patient Name: JOSÉ LUIS GORMAN [facility] Rec: [id number] [facility] ANATOMIC PATHOLOGY [address] [place] [address]. [place], [place] [address] Normal [facility] TSH w/reflex to FT4on 2023 Thyroid Stim. Horm. 0.58 uIU/mL Normal 0.27-4.20 [facility] Comment on above: Performed By: #### T SHX, JHON ####[id number] lab Director: Ramiro Mark MD TSH with Reflexon 01-19-2024 TSH Qn 0.58 m[IU]/L [facility] Troponinon 01-19-2024 Troponin, High Sens 39 ng/L High 0-22 [facility] Comment on above: Result Comment: High Sensitivity Troponin values cannot be compared with other Troponin methodologies. Performed By: #### T ROPI, NIK, CDP, ALCB, CRP, SED, GLYHGB, CK, BH, BMPX ####[address] [address] lab Director: Ramiro Mark MD Troponin I.cardiac High sensitivity method [Mass/Vol] 39 ng/L High 0 - 22 ng/L [facility] Troponin, High Sens 45 ng/L High 0-22 [facility] Comment on above: Result Comment: High Sensitivity Troponin values cannot be compared with other Troponin methodologies. Performed By: #### T ROPI #### [facility] [address] [place] [address] Sports Lawyer: Ramiro Santillan MD Troponin, High Sens 48 ng/L High 0-22 [facility] Comment on above: Result Comment: High Sensitivity Troponin values cannot be compared with other Troponin methodologies. Performed By: #### B MP, LIVP, TROPI, CDP, MG #### [facility] [address] [place] [address] Sports Lawyer: Ramiro Santillan MD Interpretation and review of laboratory results Abnormal [facility] Troponin I.cardiac High sensitivity method [Mass/Vol] 45 ng/L High 0 - 22 ng/L [facility] Comment on above: High Sensitivity Tro ponin values cannot be compared with other Troponin methodologies. [facility] Urinalysis w/ Microon 2023 Bacteria None Normal NONE [facility] Comment on above: Performed By: #### U AMIC ####[facility] [address] [place], [place] [id number] Lab Director: Ramiro Mark MD Bilirubin, SemiQt,Ur Negative Normal NEG [facility] Comment on above: Performed By: #### U AMIC ####[facility] [address] [place] [address] Lab Director: Ramiro Mark MD Blood, Urine SMALL Abnormal NEG [facility] Comment on above: Performed By: #### U AMIC ####[facility] [address] [place] [address] Lab Director: Ramiro Mark MD Casts 2 TO 5 HYALINE Normal 0-8 [facility] Comment on above: Result Comment: Refe rence range defined for non-centrifuged specimen. Performed By: #### U AMIC ####[facility] [address] [place], [place] [phone] Director: Ramiro Mark MD Clarity (U) Clear Normal CLEAR [facility] Comment on above: Performed By: #### U AMIC ####[address] [place], [place] [phone] Director: Ramiro Mark MD Color (U) Yellow Normal YEL [facility] Comment on above: Performed By: #### U AMIC ####[facility] [address] [place], [place] [phone] Director: Ramiro Mark MD Epithelial cells LM Ql (Urine sed) 2 TO 5 Normal 0-5 [facility] Comment on above: Performed By: #### U AMIC ####[address] [phone] Director: Ramiro Mark MD Glucose Ql (U) 3+ mg/dL Abnormal NEG [facility] Comment on above: Performed By: #### U AMIC ####[address] [phone] Director: Ramiro Mark MD Ketones Ql (U) MODERATE Abnormal NEG [facility] Comment on above: Performed By: #### U AMIC ####[facility] [address] [phone] Director: Ramiro Mark MD Leukocyte esterase Test strip Ql (U) Negative Normal NEG [facility] Comment on above: Performed By: #### U AMIC ####[facility] [address] [phone] Director: Ramiro Mark MD Nitrite,Ur Negative Normal NEG [facility] Comment on above: Performed By: #### U AMIC ####[address] [phone] Director: Ramiro Mark MD PH,Ur 5.5 Normal 5.0-8.0 [facility] Comment on above: Performed By: #### U AMIC ####[facility] [address] [place], [place] [phone] Director: Ramiro Mark MD Protein Ql (U) 3+ mg/dL Abnormal NEG [facility] Comment on above: Performed By: #### U AMIC ####[facility] [address] [place], [place] [phone] Director: Ramiro Mark MD Spec. [place],Ur 1.033 High 1.005-1.030 [facility] Comment on above: Performed By: #### U AMIC ####[address] [phone] Director: Ramiro Mark MD Urine RBC's 5 TO 10 Normal 0-4 [facility] Comment on above: Result Comment: Refe rence range defined for non-centrifuged specimen. Performed By: #### U AMIC ####[address] [address])[phone] Director: Ramiro Mark MD Urine WBC's 2 TO 5 Normal 0-5 [facility] Comment on above: Performed By: #### U AMIC ####[address] [phone] Director: Ramiro Mark MD Urobilinogen,Ur Normal Normal 0.0-1.0 [facility] Comment on above: Performed By: #### U AMIC ####[address] [phone] Director: Ramiro Mark MD Urinalysis with Microscopico n 01-19-2024 Bacteria LM Ql (Urine sed) None None [facility] Bilirubin Ql (U) Negative NEGATIVE [facility] Casts LM.LPF (Urine sed) [#/Area] 2 TO 5 HYALINE Reference range defined for non-centrifuged specimen. [facility] Clarity (U) Clear Clear [facility] Color (U) Yellow Yellow [facility] Epithelial cells LM.HPF (Urine sed) [#/Area] 2 TO 5 [facility] Glucose Test strip (U) [Mass/Vol] 3+ Abnormal NEGATIVE mg/dL [facility] Hemoglobin Auto test strip Ql (U) SMALL Abnormal NEGATIVE [facility] Interpretation and review of laboratory results Abnormal [facility] Ketones (U) [Mass/Vol] MODERATE Abnormal NEGAT RAJAN mg/dL [facility] Leukocyte esterase Test strip Ql (U) Negative NEGATIVE [facility] Nitrite Ql (U) Negative NEGATIVE [facility] pH (U) 5.5 [pH] 5.0 - 8.0 [facility] Protein (U) [Mass/Vol] 3+ Abnormal NEGAT RAJAN mg/dL [facility] RBC LM.HPF (Urine sed) [#/Area] 5 TO 10 [facility] Specific gravity (U) [Rel density] 1.033 High 1.005 - 1.030 [facility] Urobilinogen Qn (U) Normal 0.0 - 1. 0 EU/dL [facility] WBC LM.HPF (Urine sed) [#/Area] 2 TO 5 [facility] XR ABDOMEN FOR NG/OG/NE TUBE PLACEMENTon 01-19-2024 XR ABDOMEN FOR NG/OG/NE TUBE PLACEMENT EXAMINATION: ONE SUPINE XRAY VIEW(S) OF THE ABDOMEN 01/19/2024 1:21 pm COMPARISON: None. HISTORY: ORDERING SYSTEM PROVIDED HISTORY: Confirmation of course of NG/OG/NE tube and location of tip of tube TECHNOLOGIST PROVIDED HISTORY: Confirmation of course of NG/OG/NE tube and location of tip of tube Portable?->Yes FINDINGS: Enteric catheter tip in region of gastric body and side-port in gastric fundus. No significant distention of bowel loops. IMPRESSION: Enteric catheter tip in region of gastric body and side-port in gastric fundus Interpreted by: Felix Adams MD Signed by: Felix Adams MD 01/19/24 Final result Normal [facility] MHPN RIS CONSOLIDATED MHPN RIS CONSOLIDATED [facility] XR CHEST PORTABLEon 01-19-20 XR CHEST PORTABLE EXAMINATION: ONE XRAY VIEW OF THE CHEST 01/19/2024 10:21 am COMPARISON: None. HISTORY: ORDERING SYSTEM PROVIDED HISTORY: ET tube placement TECHNOLOGIST PROVIDED HISTORY: ET tube placement FINDINGS: Endotracheal tube tip overlies the distal thoracic trachea. Enteric tube courses below the level of the diaphragms. Cardiomediastinal contours are unremarkable. No pneumothorax or pleural effusion. No focal consolidation. IMPRESSION: Endotracheal tube tip overlies the distal thoracic trachea. Interpreted by: Sreedhar Mims MD Signed by: Sreedhar Mims MD 01/19/24 Final result Normal [facility] XR CHEST PORTABLE EXAMINATION: ONE XRAY VIEW OF THE CHEST 01/19/2024 8:58 am COMPARISON: 10/28/2021 HISTORY: ORDERING SYSTEM PROVIDED HISTORY: febrile, altered, r/o aspiration, r/o infiltrates TECHNOLOGIST PROVIDED HISTORY: febrile, altered, r/o aspiration, r/o infiltrates FINDINGS: The lungs are without acute focal process. There is no effusion or pneumothorax. The cardiomediastinal silhouette is stable. The osseous structures are stable. IMPRESSION: No acute process. Interpreted by: Felix Adams MD Signed by: Felix Adams MD 01/19/24 Final result Normal [facility] BMPon 01-18-2024 Anion gap [Moles/Vol] 14 mmol/L 9 - 17 mmol/L [facility] Calcium [Mass/Vol] 9.3 mg/dL 8.6 - 10. 4 mg/dL [facility] Chloride [Moles/Vol] 95 mmol/L Low 98 - 10 7 mmol/L [facility] CO2 [Moles/Vol] 22 mmol/L 20 - 31 mmol/L [facility] Creatinine [Mass/Vol] 1.7 mg/dL High 0.7 - 1.2 mg/dL [facility] GFR/1.73 sq M.predicted MDRD (S/P/Bld) [Vol rate/Area] 49 mL/min/{1.73_m2} Low - PINF [facility] Comment on above: These results are not intended for use in patients <18 years of age. eGFR results are calculated without a race factor using the 2020 CKD-EPI equation. Careful clinical correlation is recommended, particularly when comparing to results calculated using previous equations. The CKD-EPI equation is less accurate in patients with extremes of muscle mass, extra-renal metabolism of creatine, excessive creatine ingestion, or following therapy that affects renal tubular secretion. Glucose [Mass/Vol] 242 mg/dL High 70 - 99 mg/dL [facility] Potassium [Moles/Vol] 4.7 mmol/L 3.7 - 5.3 mmol/L [facility] Sodium [Moles/Vol] 131 mmol/L Low 135 - 144 mmol/L [facility] Urea nitrogen [Mass/Vol] 44 mg/dL High 6 - 20 mg/d L [facility] Urea nitrogen/Creatinine [Mass ratio] 26 mg/mg High 9 - 20 [facility] CBC with Auto Differentialon 01-18-2024 Basophils (Bld) [#/Vol] 0.06 10*3/uL [facility] Basophils/100 WBC (Bld) 1 % 0 - 2 % B [facility] Eosinophils (Bld) [#/Vol] 0.17 10*3/uL [facility] Eosinophils/100 WBC (Bld) 2 % 1 - 4 % [facility] Erythrocyte distribution width (RBC) [Ratio] 13.4 % 11.8 - 14.4 % [facility] Hematocrit (Bld) [Volume fraction] 36.5 % Low 40.7 - 50.3 % [facility] Hemoglobin (Bld) [Mass/Vol] 13.0 g/dL 13.0 - 17.0 g/dL [facility] Immature granulocytes (Bld) [#/Vol] 0.03 10*3/uL [facility] Immature granulocytes/100 WBC (Bld) 0 % 0 [facility] Interpretation and review of laboratory results Abnormal [facility] Lymphocytes/100 WBC (Bld) 23 % Low 24 - 43 % [facility] Lymphocytes/100 WBC (Bld) 1.95 % [facility] MCH (RBC) [Entitic mass] 29.6 pg 25. 2 - 33.5 pg [facility] MCHC (RBC) [Mass/Vol] 35.6 g/dL High 28.4 - 34.8 g/dL [facility] MCV (RBC) [Entitic vol] 83.1 fL 82.6 - 102.9 fL [facility] Monocytes/100 WBC (Bld) 6 % 3 - 12 % B ON [facility] Monocytes/100 WBC (Bld) 0.54 % B ON [facility] Neutrophils/100 WBC (Bld) 68 % High 36 - 65 % [facility] Nucleated RBC/100 WBC (Bld) [Ratio] 0.0 % 0.0 per 100 WBC [facility] Platelet mean volume (Bld) [Entitic vol] 10.4 fL 8.1 - 13.5 fL [facility] Platelets (Bld) [#/Vol] 212 10*3/uL [facility] RBC (Bld) [#/Vol] 4.39 10*6/uL 4.21 - 5.7 7 m/uL [facility] Segmented neutrophils/100 WBC (Bld) 5.80 % [facility] WBC other (Bld) [#/Vol] 8.6 B ON [facility] CTA Head vessels and Neck ve ssels W contrast Karri 01-18-2024 1. No evidence of arterial stenosis or occlusion in the head or neck. 2. No acute intracranial abnormality. 3. Sphenoid sinus disease. [facility] RIS CONSOLIDATED EXAMINATION: CTA OF THE HEAD AND NECK WITH CONTRAST 01/18/2024 9:52 pm: TECHNIQUE: CTA of the head and neck was performed with the administration of intravenous contrast. Multiplanar reformatted images are provided for review. MIP images are provided for review. Stenosis of the internal carotid arteries measured using NASCET criteria. Automated exposure control, iterative reconstruction, and/or weight based adjustment of the mA/kV was utilized to reduce the radiation dose to as low as reasonably achievable. COMPARISON: None. HISTORY: ORDERING SYSTEM PROVIDED HISTORY: Stroke alert, mild aphasia, left-sided symptoms, headache, changes to sensation TECHNOLOGIST PROVIDED HISTORY: Stroke alert, mild aphasia, left-sided symptoms, headache, changes to sensation Decision Support Exception - unselect if not a suspected or confirmed emergency medical condition->Emergen cy Medical Condition (MA) FINDINGS: CTA NECK: AORTIC ARCH/ARCH VESSELS: No dissection or arterial injury. No significant stenosis of the brachiocephalic or subclavian arteries. CAROTID ARTERIES: No dissection, arterial injury, or hemodynamically significant stenosis by NASCET criteria. Atherosclerotic calcifications are seen in the right carotid bulbs and proximal ICA. VERTEBRAL ARTERIES: No dissection, arterial injury, or significant stenosis. SOFT TISSUES: The lung apices are clear. No cervical or superior mediastinal lymphadenopathy. The larynx and pharynx are unremarkable. No acute abnormality of the salivary and thyroid glands. Mucosal thickening is seen in this sphenoid sinus. BONES: No acute osseous abnormality. CTA HEAD: ANTERIOR CIRCULATION: No significant stenosis of the intracranial internal carotid, anterior cerebral, or middle cerebral arteries. No aneurysm. POSTERIOR CIRCULATION: No significant stenosis of the vertebral, basilar, or posterior cerebral arteries. No aneurysm. OTHER: No dural venous sinus thrombosis on this non-dedicated study. BRAIN: No mass effect or midline shift. No extra-axial fluid collection. The winkler-white differentiation is maintained. [facility] Daniel Ramos MD - 01/18/2024 EXAMINATION: CTA OF THE HEAD AND NECK WITH CONTRAST 01/18/2024 9:52 pm: TECHNIQUE: CTA of the head and neck was performed with the administration of intravenous contrast. Multiplanar reformatted images are provided for review. MIP images are provided for review. Stenosis of the internal carotid arteries measured using NASCET criteria. Automated exposure control, iterative reconstruction, and/or weight based adjustment of the mA/kV was utilized to reduce the radiation dose to as low as reasonably achievable. COMPARISON: None. HISTORY: ORDERING SYSTEM PROVIDED HISTORY: Stroke alert, mild aphasia, left-sided symptoms, headache, changes to sensation TECHNOLOGIST PROVIDED HISTORY: Stroke alert, mild aphasia, left-sided symptoms, headache, changes to sensation Decision Support Exception - unselect if not a suspected or confirmed emergency medical condition->Emergen cy Medical Condition (MA) FINDINGS: CTA NECK: AORTIC ARCH/ARCH VESSELS: No dissection or arterial injury. No significant stenosis of the brachiocephalic or subclavian arteries. CAROTID ARTERIES: No dissection, arterial injury, or hemodynamically significant stenosis by NASCET criteria. Atherosclerotic calcifications are seen in the right carotid bulbs and proximal ICA. VERTEBRAL ARTERIES: No dissection, arterial injury, or significant stenosis. SOFT TISSUES: The lung apices are clear. No cervical or superior mediastinal lymphadenopathy. The larynx and pharynx are unremarkable. No acute abnormality of the salivary and thyroid glands. Mucosal thickening is seen in this sphenoid sinus. BONES: No acute osseous abnormality. CTA HEAD: ANTERIOR CIRCULATION: No significant stenosis of the intracranial internal carotid, anterior cerebral, or middle cerebral arteries. No aneurysm. POSTERIOR CIRCULATION: No significant stenosis of the vertebral, basilar, or posterior cerebral arteries. No aneurysm. OTHER: No dural venous sinus thrombosis on this non-dedicated study. BRAIN: No mass effect or midline shift. No extra-axial fluid collection. The winkler-white differentiation is maintained. IMPRESSION: 1. No evidence of arterial stenosis or occlusion in the head or neck. 2. No acute intracranial abnormality. 3. Sphenoid sinus disease. [facility] Radiology Study observation (narrative) [facility] CTA Head vessels and Neck ve ssels W contrast IVOrdered By: Daniel Ramos on 01-18-2024 [facility] Work Phone: Glucose, Whole Bloodon 01-17 Glucose [Mass/Vol] 232 mg/dL High 74 - 100 mg/dL [facility] Interpretation and review of laboratory results Abnormal [facility] Glucose [Mass/Vol] 230 mg/dL High 74 - 100 mg/dL [facility] Interpretation and review of laboratory results Abnormal [facility] Hepatic Function Panelon Albumin [Mass/Vol] 3.9 g/dL 3.5 - 5.2 g/dL [facility] Albumin/Globulin [Mass ratio] 1.3 {ratio} 1.0 - 2.5 [facility] ALP [Catalytic activity/Vol] 105 U/L 40 - 129 U/L [facility] ALT [Catalytic activity/Vol] 18 U/L 5 - 41 U/L [facility] AST [Catalytic activity/Vol] 16 U/L NINF - 40 U/L [facility] Bilirubin [Mass/Vol] 0.2 mg/dL Low 0.3 - 1 .2 mg/dL [facility] Bilirubin.direct [Mass/Vol] mg/dL NINF - 0.3 mg/dL [facility] Bilirubin.indirect [Mass/Vol] Can not be calculated 0.0 - 1.0 mg/dL [facility] Protein [Mass/Vol] 7.0 g/dL 6.4 - 8.3 g/dL [facility] Lactic Acidon 01-18-2024 Interpretation and review of laboratory results Abnormal [facility] Lactate (BldV) [Moles/Vol] 2.8 mmol/L High 0 .5 - 2.2 mmol/L [facility] Magnesiumon 01-18-2024 Magnesium [Mass/Vol] 2.2 mg/dL 1.6 - 2 .6 mg/dL [facility] No Panel Informationon 01-17 Interpretation and review of laboratory results Abnormal [facility] Troponinon 01-18-2024 Interpretation and review of laboratory results Abnormal [facility] Troponin I.cardiac High sensitivity method [Mass/Vol] 48 ng/L High 0 - 22 ng/L [facility] Comment on above: High Sensitivity Tro ponin values cannot be compared with other Troponin methodologies. [facility] HSV 1,2 DNA PCRon 09-26-2023 HSV 1 DNA Negative Normal [facility] Comment on above: Result Comment: Refe rence range: Negative Performed By: #### L HSV #### Testing performed at [facility] [place] HSV 2 DNA Negative Normal [facility] Comment on above: Result Comment: Refe rence range: Negative (NOTE) This test was developed and its performance characteristics determined by [employer]. It has not been cleared or approved by the U.S. Food and Drug Administration. The FDA has determined that such clearance or approval is not necessary. This test is used for clinical purposes. It should not be regarded as investigational or research. PERFORMED AT [facility] Performed By: #### L HSV #### Testing performed at [facility] CBCon 09-24-2023 ABSOLUTE BAS 0.0 10*3/uL Normal 0.0-0.2 [facility] ABSOLUTE EOS 0.1 10*3/uL Normal 0.0-0.7 [facility] ABSOLUTE NEUTROPHIL COUNT 12.9 10*3/uL High 1.4-6.5 [facility] Basophils/100 WBC (Bld) 0.1 % Normal 0.0-2.0 [facility] DTYPE AUTO DIFF Normal [facility] Eosinophils/100 WBC (Bld) 0.5 % Normal 0.0-11.0 [facility] Lymphocytes (Bld) [#/Vol] 1.0 10*3/uL Low 1.2-3.4 [facility] Lymphocytes/100 WBC (Bld) 6.3 % Low 20.0-55.0 [facility] Monocytes (Bld) [#/Vol] 1.2 10*3/uL High 0.0-0.7 [facility] Monocytes/100 WBC (Bld) 7.9 % Normal 0.0-10.0 [facility] Neutrophils/100 WBC (Bld) 85.2 % High 37.0-75.0 [facility] Erythrocyte distribution width (RBC) [Ratio] 14.2 % Normal 11.5-14.5 [facility] Hematocrit (Bld) [Volume fraction] 34.1 % Low 42.0-52.0 [facility] Hemoglobin (Bld) [Mass/Vol] 11.4 g/dL Low 14.0-18. 0 [facility] MCH (RBC) [Entitic mass] 29.0 pg Normal 26.0-35.0 [facility] MCHC (RBC) [Mass/Vol] 33.4 g/dL Normal 27.0-37.0 [facility] MCV (RBC) [Entitic vol] 86.7 fL Normal 80.0-100.0 [facility] Platelet mean volume (Bld) [Entitic vol] 8.8 fL Normal 7.4-11.0 [facility] Platelets (Bld) [#/Vol] 161 10*3/uL Normal 130-400 [facility] RBC (Bld) [#/Vol] 3.94 10*6/uL Low 4.0-6.1 [facility] WBC (Bld) [#/Vol] 15.2 10*3/uL High 3.6-11.0 [facility] CBC, EDIF, PLATELETon 2022 ABSOLUTE BASOPHIL COUNT 0.0 10*3/uL 0.0 - 0.2 10*3/uL [facility] Basophils/100 WBC (Bld) 0.1 % 0.0 - 2.0 % [facility] Differential cell count method Nom (Bld) AUTO DIFF % [facility] Eosinophils (Bld) [#/Vol] 0.1 10*3/uL 0. 0 - 0.7 10*3/uL [facility] Eosinophils/100 WBC (Bld) 0.5 % 0.0 - 11.0 % [facility] Erythrocyte distribution width (RBC) [Ratio] 14.2 % 11.5 - 14.5 % [facility] Hematocrit (Bld) [Volume fraction] 34.1 % Low 42.0 - 52.0 % [facility] Hemoglobin (Bld) [Mass/Vol] 11.4 g/dL Low [facility] Interpretation and review of laboratory results Abnormal [facility] Lymphocytes (Bld) [#/Vol] 1.0 10*3/uL Low 1. 2 - 3.4 10*3/uL [facility] Lymphocytes/100 WBC (Bld) 6.3 % Low 20 .0 - 55.0 % [facility] MCH (RBC) [Entitic mass] 29.0 pg 26. 0 - 35.0 PG [facility] MCHC (RBC) [Mass/Vol] 33.4 g/dL [facility] MCV (RBC) [Entitic vol] 86.7 fL [facility] Monocytes (Bld) [#/Vol] 1.2 10*3/uL High 0.0 - 0.7 10*3/uL [facility] Monocytes/100 WBC (Bld) 7.9 % 0.0 - 10.0 % [facility] Neutrophils (Bld) [#/Vol] 12.9 10*3/uL High 1. 4 - 6.5 10*3/uL [facility] Neutrophils/100 WBC (Bld) 85.2 % High 37 .0 - 75.0 % [facility] Platelet mean volume (Bld) [Entitic vol] 8.8 fL [facility] Platelets (Bld) [#/Vol] 161 10*3/uL 130 - 400 10*3/uL [facility] RBC (Bld) [#/Vol] 3.94 10*6/uL Low 4.0 - 6.1 10*6/uL [facility] WBC (Bld) [#/Vol] 15.2 10*3/uL High 3.6 - 11.0 10*3/uL [facility] CKon 09-24-2023 CK [Catalytic activity/Vol] 631 U/L High [facility] CPKon 09-24-2023 CPK 631 IU/L High 55-170 [facility] GLUCOSE (POC DEVICE)on 09-24 GLUCOSE, POINT OF CARE 203 High [facility] Interpretation and review of laboratory results Abnormal [facility] [id number] [facility] GLUCOSE, POINT OF CARE 183 High [facility] Interpretation and review of laboratory results Abnormal [facility] [id number] [facility] GLUCOSE, POINT OF CARE 109 High [facility] Interpretation and review of laboratory results Abnormal [facility] [id number] [facility] GLUCOSE, POINT OF CARE 168 High [facility] Interpretation and review of laboratory results Abnormal [facility] [id number] [facility] MAGNESIUMon 09-24-2023 Magnesium [Mass/Vol] 2.0 mg/dL Normal 1.6-2.3 [facility] Magnesium [Mass/Vol] 2.0 mg/dL [facility] No Panel Informationon 09-24 Interpretation and review of laboratory results Abnormal [place] POCT GLUCOSEon 09-24-2023 Glucose [Mass/Vol] 203 mg/dL High 70-100 [facility] GENERAL OPHTHALMOLOGIST [id number] Normal [facility] Glucose [Mass/Vol] 183 mg/dL High 70-100 [facility] GENERAL OPHTHALMOLOGIST [id number] Normal [facility] Glucose [Mass/Vol] 109 mg/dL High 70-100 [facility] GENERAL OPHTHALMOLOGIST [id number] Normal [facility] Glucose [Mass/Vol] 168 mg/dL High 70-100 [facility] GENERAL OPHTHALMOLOGIST [id number] Normal [facility] RENAL FUNCTION PANELon 09-24 Albumin [Mass/Vol] 3.2 G/dl Low 3.5 - 5.0 G/dl [facility] Calcium [Mass/Vol] 8.0 mg/dL Low [facility] Chloride [Moles/Vol] 111 mmol/L High [facility] Comment on above: Please note: Triglyc eride levels of 600mg/dL or higher may positively bias chloride results by approximately 2.1 mmol CO2 [Moles/Vol] 24 mmol/L [facility] Creatinine [Mass/Vol] 1.10 mg/dL [facility] GFR COMMENT Average GFR for 40-49 years old = 99. [facility] Comment on above: Chronic Kidney disea se, GFR = <60. Kidney failure, GFR = <15. The GFR estimate is not adjusted for extreme body surface area or acute process, nor has it been validated for women or ethnic groups other than and . GFR/1.73 sq M.predicted among blacks MDRD (S/P/Bld) [Vol rate/Area] 92 mL/min/{1.73_m2} ml/min/1.73s q.m [facility] GFR/1.73 sq M.predicted among non-blacks MDRD (S/P/Bld) [Vol rate/Area] 76 mL/min/{1.73_m2} ml/min/1.73s q.m [facility] Glucose post fast [Mass/Vol] 106 mg/dL High [facility] Comment on above: NORMAL <100 mg/dL PREDIABETES 101-126 mg/dL DIABETES 126 mg/dL or higher Phosphate [Mass/Vol] 2.9 mg/dL [facility] Potassium [Moles/Vol] 3.8 mmol/L [facility] Sodium [Moles/Vol] 138 mmol/L [facility] Urea nitrogen [Mass/Vol] 17 mg/dL [facility] RENAL PANEL,FASTINGon 2022 ALBUMIN 3.2 G/dl Low 3.5-5.0 [facility] Calcium [Mass/Vol] 8.0 mg/dL Low 8.4-10.2 [facility] Chloride [Moles/Vol] 111 mmol/L High 98-107 [facility] Comment on above: Result Comment: Juana spencer note: Triglyceride levels of 600mg/dL or higher may positively bias chloride results by approximately 2.1 mmol CO2 [Moles/Vol] 24 mmol/L Normal 22-30 [facility] Creatinine [Mass/Vol] 1.10 mg/dL Normal 0.7-1.2 [facility] EST. GFR, 92 ml/min/1.73sq.m Normal [facility] EST. GFR,Non 76 ml/min/1.73sq.m Normal [facility] GFR Information Average GFR for 40-49 years old = 99. Normal [facility] Comment on above: Result Comment: [employer] alfreda Kidney disease, GFR = <60. Kidney failure, GFR = <15. The GFR estimate is not adjusted for extreme body surface area or acute process, nor has it been validated for women or ethnic groups other than and . Glucose [Mass/Vol] 106 mg/dL High 70-100 [facility] Comment on above: Result Comment: NORMAL <100 mg/dL PREDIABETES 101-126 mg/dL DIABETES 126 mg/dL or higher PHOSPHOROUS 2.9 MG/DL Normal 2.5-4.5 [facility] Potassium [Moles/Vol] 3.8 mmol/L Normal 3.5-5.1 [facility] Sodium [Moles/Vol] 138 mmol/L Normal 137-145 [facility] Urea nitrogen [Mass/Vol] 17 mg/dL Normal 7-20 [facility] B12 & FOLATEon 09-23-2023 Cobalamin (Vitamin B12) [Mass/Vol] 383 pg/mL 239 - 931 PG/ML [facility] Folate [Mass/Vol] 6.4 ng/mL [facility] FOLATEon 09-23-2023 Cobalamin (Vitamin B12) [Mass/Vol] 383 pg/mL Normal 239-931 [facility] FOLATE 6.4 NG/ML Normal 2.56-20.0 [facility] CBCon 09-23-2023 ABSOLUTE BAS 0.0 10*3/uL Normal 0.0-0.2 [facility] ABSOLUTE EOS 0.0 10*3/uL Normal 0.0-0.7 [facility] ABSOLUTE NEUTROPHIL COUNT 12.1 10*3/uL High 1.4-6.5 [facility] Basophils/100 WBC (Bld) 0.1 % Normal 0.0-2.0 [facility] DTYPE AUTO DIFF Normal [facility] Eosinophils/100 WBC (Bld) 0.1 % Normal 0.0-11.0 [facility] Lymphocytes (Bld) [#/Vol] 0.8 10*3/uL Low 1.2-3.4 [facility] Lymphocytes/100 WBC (Bld) 6.0 % Low 20.0-55.0 [facility] Monocytes (Bld) [#/Vol] 1.1 10*3/uL High 0.0-0.7 [facility] Monocytes/100 WBC (Bld) 7.6 % Normal 0.0-10.0 [facility] Neutrophils/100 WBC (Bld) 86.2 % High 37.0-75.0 [facility] Erythrocyte distribution width (RBC) [Ratio] 13.9 % Normal 11.5-14.5 [facility] Hematocrit (Bld) [Volume fraction] 34.7 % Low 42.0-52.0 [facility] Hemoglobin (Bld) [Mass/Vol] 11.6 g/dL Low 14.0-18. 0 [facility] MCH (RBC) [Entitic mass] 28.9 pg Normal 26.0-35.0 [facility] MCHC (RBC) [Mass/Vol] 33.4 g/dL Normal 27.0-37.0 [facility] MCV (RBC) [Entitic vol] 86.5 fL Normal 80.0-100.0 [facility] Platelet mean volume (Bld) [Entitic vol] 8.5 fL Normal 7.4-11.0 [facility] Platelets (Bld) [#/Vol] 167 10*3/uL Normal 130-400 [facility] RBC (Bld) [#/Vol] 4.01 10*6/uL Normal 4.0-6.1 [facility] WBC (Bld) [#/Vol] 14.1 10*3/uL High 3.6-11.0 [facility] CBC, EDIF, PLATELETon 2022 ABSOLUTE BASOPHIL COUNT 0.0 10*3/uL 0.0 - 0.2 10*3/uL [facility] Basophils/100 WBC (Bld) 0.1 % 0.0 - 2.0 % [facility] Differential cell count method Nom (Bld) AUTO DIFF % [facility] Eosinophils (Bld) [#/Vol] 0.0 10*3/uL 0. 0 - 0.7 10*3/uL [facility] Eosinophils/100 WBC (Bld) 0.1 % 0.0 - 11.0 % [facility] Erythrocyte distribution width (RBC) [Ratio] 13.9 % 11.5 - 14.5 % [facility] Hematocrit (Bld) [Volume fraction] 34.7 % Low 42.0 - 52.0 % [facility] Hemoglobin (Bld) [Mass/Vol] 11.6 g/dL Low [facility] Interpretation and review of laboratory results Abnormal [facility] Lymphocytes (Bld) [#/Vol] 0.8 10*3/uL Low 1. 2 - 3.4 10*3/uL [facility] Lymphocytes/100 WBC (Bld) 6.0 % Low 20 .0 - 55.0 % [facility] MCH (RBC) [Entitic mass] 28.9 pg 26. 0 - 35.0 PG [facility] MCHC (RBC) [Mass/Vol] 33.4 g/dL [facility] MCV (RBC) [Entitic vol] 86.5 fL [facility] Monocytes (Bld) [#/Vol] 1.1 10*3/uL High 0.0 - 0.7 10*3/uL [facility] Monocytes/100 WBC (Bld) 7.6 % 0.0 - 10.0 % [facility] Neutrophils (Bld) [#/Vol] 12.1 10*3/uL High 1. 4 - 6.5 10*3/uL [facility] Neutrophils/100 WBC (Bld) 86.2 % High 37 .0 - 75.0 % [facility] Platelet mean volume (Bld) [Entitic vol] 8.5 fL [facility] Platelets (Bld) [#/Vol] 167 10*3/uL 130 - 400 10*3/uL [facility] RBC (Bld) [#/Vol] 4.01 10*6/uL 4.0 - 6.1 10*6/uL [facility] WBC (Bld) [#/Vol] 14.1 10*3/uL High 3.6 - 11.0 10*3/uL [facility] CKon 09-23-2023 CK [Catalytic activity/Vol] 787 U/L High [facility] CPKon 09-23-2023 CPK 787 IU/L High 55-170 [facility] Cardiac echo study Procedure on 09-23-2023 APPROVED [...] Doppler, and color-flow Echocardiogram Imaging system used: [employer] 2D Dimensions IVSd 1.4 cm M: 0.6-1.0 [...] ms MVA PHT 4.40 cm2 MV Dec [place] 515.21 cm/s2 MV Decel. Time 176.32 (160-240 [...] Doppler, and color-flow Echocardiogram Imaging system used: [employer] IVSd 1.4 cm M: 0.6-1.0LVEF (Torres's)72.70 % M: 52 - 72 PWd 1.1 cm M: 0.6 - 1.0EF AP4-a2DQ73.36 % LVDd 4.0 cm M: 4.2 - 5.8EF AP2-a2DQ71.42 % LVDs 2.96 cm M: 2.5 - 4.0EF BP-a2DQ72.70 % Aortic Root 2.98 cm M: 3.1 - 3.9HYYLO96 mL Aortic Root Index1.4 cm/n6NFONO79.15 mL M: 62 - 150 Ascending Aorta 3.09 cm M: 2.6 - 3.4LV Volume Index44.30 mL/m2 M: 34 - 74 Ascending Aorta Index: 1.5 cm/m2LA Tjalmi90.0 mL Left Atrium 2.40 cm M: 3.0 [...] Ratio1.32MV PHT50.00 ms MVA PHT4.40 cm2MV Dec [place] 515.21 cm/s2 MV Decel. Vqrm639.32 (160-240 ms) Tricuspid Valve TR P. Velocity2.17 m/sRAP Estimate3 mmHg RVSP21.75 mmHgTR maxPG 18.75 mmHg [facility] Radiology Study observation (narrative) [facility] Cardiac echo study Procedure Ordered By: Javid Colindres on 09-23-2023 [facility] Work Phone: EEG AWAKE, ROUTINEon 023 Cecil Yu MD 09/23/2023 3:30 PM Interpreting physician: Cecil Yu M.D. This is a routine EEG performed on a 47 y.o. year-old male using standard 10-20 lead placement and a [employer] system. All data was obtained digitally and [...] activity consistent with a moderate diffuse encephalopathy. [facility] EEG AWAKE, ROUTINEOrdered By : Cecil Yu on 09-23-2023 [facility] Work Phone: GLUCOSE (POC DEVICE)on 09-23 GLUCOSE, POINT OF CARE [address] [facility] Interpretation and review of laboratory results Abnormal [facility] [id number] [facility] GLUCOSE, POINT OF CARE 149 High [facility] Interpretation and review of laboratory results Abnormal [facility] [id number] [facility] GLUCOSE, POINT OF CARE 136 High [facility] Interpretation and review of laboratory results Abnormal [facility] [id number] [facility] GLUCOSE, POINT OF CARE [address] [facility] Tank Operator [id number] [facility] GLUCOSE, POINT OF CARE [address] [facility] Tank Operator [id number] [facility] GLUCOSE, POINT OF CARE 86 [facility] MAGNESIUMon 09-23-2023 Magnesium [Mass/Vol] 1.9 mg/dL Normal 1.6-2.3 [facility] Magnesium [Mass/Vol] 1.9 mg/dL [facility] No Panel Informationon 09-23 Interpretation and review of laboratory results Abnormal [place] POCT GLUCOSEon 09-23-2023 Glucose [Mass/Vol] 149 mg/dL High 70-100 [facility] GENERAL OPHTHALMOLOGIST [id number] Normal [facility] Glucose [Mass/Vol] 149 mg/dL High 70-100 [facility] GENERAL OPHTHALMOLOGIST [id number] Normal [facility] Glucose [Mass/Vol] 136 mg/dL High 70-100 [facility] GENERAL OPHTHALMOLOGIST [id number] Normal [facility] Glucose [Mass/Vol] 91 mg/dL Normal 70-100 [facility] GENERAL OPHTHALMOLOGIST [id number] Normal [facility] Glucose [Mass/Vol] 85 mg/dL Normal 70-100 [facility] GENERAL OPHTHALMOLOGIST [id number] Normal [facility] Glucose [Mass/Vol] 86 mg/dL Normal 70-100 [facility] GENERAL OPHTHALMOLOGIST Normal [facility] Glucose [Mass/Vol] 79 mg/dL Normal 70-100 [facility] Glucose [Mass/Vol] 89 mg/dL Normal 70-100 [facility] GENERAL OPHTHALMOLOGIST [id number] Normal [facility] GENERAL OPHTHALMOLOGIST [id number] Normal [facility] RENAL FUNCTION PANELon 09-23 Albumin [Mass/Vol] 3.5 G/dl 3.5 - 5.0 G/dl [facility] Calcium [Mass/Vol] 8.1 mg/dL Low [facility] Chloride [Moles/Vol] 112 mmol/L High [facility] Comment on above: Please note: Triglyc eride levels of 600mg/dL or higher may positively bias chloride results by approximately 2.1 mmol CO2 [Moles/Vol] 23 mmol/L [facility] Creatinine [Mass/Vol] 1.10 mg/dL [facility] GFR COMMENT Average GFR for 40-49 years old = 99. [facility] Comment on above: Chronic Kidney disea se, GFR = <60. Kidney failure, GFR = <15. The GFR estimate is not adjusted for extreme body surface area or acute process, nor has it been validated for women or ethnic groups other than and . GFR/1.73 sq M.predicted among blacks MDRD (S/P/Bld) [Vol rate/Area] 92 mL/min/{1.73_m2} ml/min/1.73s q.m [facility] GFR/1.73 sq M.predicted among non-blacks MDRD (S/P/Bld) [Vol rate/Area] 76 mL/min/{1.73_m2} ml/min/1.73s q.m [facility] Glucose post fast [Mass/Vol] 68 mg/dL Low [facility] Comment on above: NORMAL <100 mg/dL PREDIABETES 101-126 mg/dL DIABETES 126 mg/dL or higher Phosphate [Mass/Vol] 2.6 mg/dL [facility] Potassium [Moles/Vol] 3.6 mmol/L [facility] Sodium [Moles/Vol] 140 mmol/L [facility] Urea nitrogen [Mass/Vol] 22 mg/dL High [facility] RENAL PANEL,FASTINGon 2022 ALBUMIN 3.5 G/dl Normal 3.5-5.0 [facility] Calcium [Mass/Vol] 8.1 mg/dL Low 8.4-10.2 [facility] Chloride [Moles/Vol] 112 mmol/L High 98-107 [facility] Comment on above: Result Comment: Plea se note: Triglyceride levels of 600mg/dL or higher may positively bias chloride results by approximately 2.1 mmol CO2 [Moles/Vol] 23 mmol/L Normal 22-30 [facility] Creatinine [Mass/Vol] 1.10 mg/dL Normal 0.7-1.2 [facility] EST. GFR, 92 ml/min/1.73sq.m Normal [facility] EST. GFR,Non 76 ml/min/1.73sq.m Normal [facility] GFR Information Average GFR for 40-49 years old = 99. Normal [facility] Comment on above: Result Comment: [employer] alfreda Kidney disease, GFR = <60. Kidney failure, GFR = <15. The GFR estimate is not adjusted for extreme body surface area or acute process, nor has it been validated for women or ethnic groups other than and . Glucose [Mass/Vol] 68 mg/dL Low 70-100 [facility] Comment on above: Result Comment: NORMAL <100 mg/dL PREDIABETES 101-126 mg/dL DIABETES 126 mg/dL or higher PHOSPHOROUS 2.6 MG/DL Normal 2.5-4.5 [facility] Potassium [Moles/Vol] 3.6 mmol/L Normal 3.5-5.1 [facility] Sodium [Moles/Vol] 140 mmol/L Normal 137-145 [facility] Urea nitrogen [Mass/Vol] 22 mg/dL High 7-20 [facility] URINE CULTUREon 09-23-2023 Bacteria identified Cx Nom (Unsp spec) NO GROWTH 2 DAYS [facility] Comment on above: Testing performed at [place], [place] [address] Service comment (Unsp spec) [Interp] 09/23/2023 [facility] Comment on above: FINAL SPECIMEN DESCRIPTION URINE - OTHER [facility] AMMONIAon 09-22-2023 Ammonia (P) [Moles/Vol] 42 umol/L High 9-30 A [facility] Ammonia (P) [Mass/Vol] 42 ug/dL High [facility] Interpretation and review of laboratory results Abnormal [place] ARTERIAL BLOOD GASon 023 JODY'S TEST NOT APPLICABLE Normal [facility] BASE DEFICIT 1.1 mEq/L Normal 0-2 [facility] cHCO3 (P,ST)C 23.5 mEq/L Normal 22-26 [facility] ctHb 12.2 g/dl Normal [facility] FCOHb 0.3 % Normal [facility] FMetHb 0.8 % Normal [facility] FO2Hb 97.8 % Normal [facility] O2 DEVICE VENT Normal [facility] PATIENT DIAGNOSIS RESPIRATORY FAILURE Normal [facility] PATIENT O2 SETTINGS 30% Normal [facility] pCO2, arterial 38 mmHg Normal 35-45 [facility] pH, arterial 7.40 Normal 7.350-7.450 [facility] pO2,arterial 150 mmHg High 80-100 [facility] SAMPLE SITE RIGHT BRACHIAL Normal [facility] sO2,arterial 98.9 % Normal 95-100 [facility] Arterial patency Wrist artery --pre arterial puncture NOT APPLICABLE [facility] Base deficit (BldV) [Moles/Vol] 1.1 [facility] Carboxyhemoglobin (Bld) [Mass fraction] 0.3 % [facility] CO2 (Bld) [Partial pressure] 38 mm[Hg] [facility] Diagnosis Narrative RESPIRATORY FAILURE [facility] HCO3 (Bld) [Moles/Vol] 23.5 mmol/L [facility] Hemoglobin (Bld) [Mass/Vol] 12.2 g/dL [facility] Interpretation and review of laboratory results Abnormal [facility] Methemoglobin (BldC) [Mass fraction] 0.8 % [facility] O2 Device VENT [facility] Oxygen (Bld) [Partial pressure] 150 mm[Hg] High [facility] Oxyhemoglobin (Bld) [Mass fraction] 97.8 % [facility] PATIENT PO2 SETTINGS 30% [facility] pH (Bld) 7.40 [pH] 7.350 - 7.450 [facility] Specimen site Narrative RIGHT BRACHIAL [facility] C REACTIVE PROTEINon 023 CRP [Mass/Vol] 18.1 mg/L High 0-10 [facility] CRP [Mass/Vol] 18.1 mg/L High 0 - 10 MG/L [facility] CBCon 09-22-2023 ABSOLUTE BAS 0.0 10*3/uL Normal 0.0-0.2 [facility] ABSOLUTE EOS 0.1 10*3/uL Normal 0.0-0.7 [facility] ABSOLUTE NEUTROPHIL COUNT 8.5 10*3/uL High 1.4-6.5 [facility] Basophils/100 WBC (Bld) 0.3 % Normal 0.0-2.0 [facility] DTYPE AUTO DIFF Normal [facility] Eosinophils/100 WBC (Bld) 0.5 % Normal 0.0-11.0 [facility] Lymphocytes (Bld) [#/Vol] 1.4 10*3/uL Normal 1.2-3.4 [facility] Lymphocytes/100 WBC (Bld) 12.4 % Low 20.0-55.0 [facility] Monocytes (Bld) [#/Vol] 1.0 10*3/uL High 0.0-0.7 [facility] Monocytes/100 WBC (Bld) 9.1 % Normal 0.0-10.0 [facility] Neutrophils/100 WBC (Bld) 77.7 % High 37.0-75.0 [facility] Erythrocyte distribution width (RBC) [Ratio] 14.1 % Normal 11.5-14.5 [facility] Hematocrit (Bld) [Volume fraction] 38.0 % Low 42.0-52.0 [facility] Comment on above: Result Comment: IV F LUIDS Hemoglobin (Bld) [Mass/Vol] 12.7 g/dL Low 14.0-18. 0 [facility] Comment on above: Result Comment: iv f luids MCH (RBC) [Entitic mass] 28.9 pg Normal 26.0-35.0 [facility] MCHC (RBC) [Mass/Vol] 33.4 g/dL Normal 27.0-37.0 [facility] MCV (RBC) [Entitic vol] 86.7 fL Normal 80.0-100.0 [facility] Platelet mean volume (Bld) [Entitic vol] 8.5 fL Normal 7.4-11.0 [facility] Platelets (Bld) [#/Vol] 151 10*3/uL Normal 130-400 [facility] RBC (Bld) [#/Vol] 4.39 10*6/uL Normal 4.0-6.1 [facility] WBC (Bld) [#/Vol] 11.0 10*3/uL Normal 3.6-11.0 [facility] CBC, EDIF, PLATELETon 2022 ABSOLUTE BASOPHIL COUNT 0.0 10*3/uL 0.0 - 0.2 10*3/uL [facility] Basophils/100 WBC (Bld) 0.3 % 0.0 - 2.0 % [facility] Differential cell count method Nom (Bld) AUTO DIFF % [facility] Eosinophils (Bld) [#/Vol] 0.1 10*3/uL 0. 0 - 0.7 10*3/uL [facility] Eosinophils/100 WBC (Bld) 0.5 % 0.0 - 11.0 % [facility] Erythrocyte distribution width (RBC) [Ratio] 14.1 % 11.5 - 14.5 % [facility] Hematocrit (Bld) [Volume fraction] 38.0 % Low 42.0 - 52.0 % [facility] Comment on above: IV FLUIDS Hemoglobin (Bld) [Mass/Vol] 12.7 g/dL Low [facility] Comment on above: iv fluids Interpretation and review of laboratory results Abnormal [facility] Lymphocytes (Bld) [#/Vol] 1.4 10*3/uL 1. 2 - 3.4 10*3/uL [facility] Lymphocytes/100 WBC (Bld) 12.4 % Low 20 .0 - 55.0 % [facility] MCH (RBC) [Entitic mass] 28.9 pg 26. 0 - 35.0 PG [facility] MCHC (RBC) [Mass/Vol] 33.4 g/dL [facility] MCV (RBC) [Entitic vol] 86.7 fL A [facility] Monocytes (Bld) [#/Vol] 1.0 10*3/uL High 0.0 - 0.7 10*3/uL [facility] Monocytes/100 WBC (Bld) 9.1 % 0.0 - 10.0 % [facility] Neutrophils (Bld) [#/Vol] 8.5 10*3/uL High 1. 4 - 6.5 10*3/uL [facility] Neutrophils/100 WBC (Bld) 77.7 % High 37 .0 - 75.0 % [facility] Platelet mean volume (Bld) [Entitic vol] 8.5 fL [facility] Platelets (Bld) [#/Vol] 151 10*3/uL 130 - 400 10*3/uL [facility] RBC (Bld) [#/Vol] 4.39 10*6/uL 4.0 - 6.1 10*6/uL [facility] WBC (Bld) [#/Vol] 11.0 10*3/uL 3.6 - 11.0 10*3/uL [facility] CKon 09-22-2023 CK [Catalytic activity/Vol] 282 U/L High [facility] CMP FASTINGon 09-22-2023 A:G RATIO 1.3 RATIO Normal 1.3-2.2 [facility] ALBUMIN 3.4 G/dl Low 3.5-5.0 [facility] ALP [Catalytic activity/Vol] 76 U/L Normal 38-126 [facility] ALT [Catalytic activity/Vol] 25 U/L Normal <50 [facility] AST [Catalytic activity/Vol] 35 U/L Normal 17-59 [facility] Bilirubin [Mass/Vol] 0.4 mg/dL Normal 0.2-1.3 [facility] Calcium [Mass/Vol] 8.2 mg/dL Low 8.4-10.2 [facility] Chloride [Moles/Vol] 109 mmol/L High 98-107 [facility] Comment on above: Result Comment: Juana spencer note: Triglyceride levels of 600mg/dL or higher may positively bias chloride results by approximately 2.1 mmol CO2 [Moles/Vol] 23 mmol/L Normal 22-30 [facility] Creatinine [Mass/Vol] 1.40 mg/dL High 0.7-1.2 [facility] EST. GFR, 69 ml/min/1.73sq.m Normal [facility] EST. GFR,Non 57 ml/min/1.73sq.m Normal [facility] GFR Information Average GFR for 40-49 years old = 99. Normal [facility] Comment on above: Result Comment: [employer] alfreda Kidney disease, GFR = <60. Kidney failure, GFR = <15. The GFR estimate is not adjusted for extreme body surface area or acute process, nor has it been validated for women or ethnic groups other than and . Glucose [Mass/Vol] 72 mg/dL Normal 70-100 [facility] Comment on above: Result Comment: NORMAL <100 mg/dL PREDIABETES 101-126 mg/dL DIABETES 126 mg/dL or higher Potassium [Moles/Vol] 4.2 mmol/L Normal 3.5-5.1 [facility] Protein [Mass/Vol] 6.0 g/dL Low 6.3-8.2 [facility] Sodium [Moles/Vol] 138 mmol/L Normal 137-145 [facility] Urea nitrogen [Mass/Vol] 35 mg/dL High 7-20 [facility] COMPREHENSIVE METABOLIC PANE Jt 09-22-2023 Albumin [Mass/Vol] 3.4 G/dl Low 3.5 - 5.0 G/dl [facility] Albumin/Globulin [Mass ratio] 1.3 {ratio} [facility] ALP [Catalytic activity/Vol] 76 U/L [facility] ALT [Catalytic activity/Vol] 25 U/L NINF [facility] AST [Catalytic activity/Vol] 35 U/L [facility] Bilirubin [Mass/Vol] 0.4 mg/dL [facility] Calcium [Mass/Vol] 8.2 mg/dL Low [facility] Chloride [Moles/Vol] 109 mmol/L [facility] Comment on above: Please note: Triglyc eride levels of 600mg/dL or higher may positively bias chloride results by approximately 2.1 mmol CO2 [Moles/Vol] 23 mmol/L [facility] Creatinine [Mass/Vol] 1.40 mg/dL High [facility] GFR COMMENT Average GFR for 40-49 years old = 99. [facility] Comment on above: Chronic Kidney disea se, GFR = <60. Kidney failure, GFR = <15. The GFR estimate is not adjusted for extreme body surface area or acute process, nor has it been validated for women or ethnic groups other than and . GFR/1.73 sq M.predicted among blacks MDRD (S/P/Bld) [Vol rate/Area] 69 mL/min/{1.73_m2} ml/min/1.73s q.m [facility] GFR/1.73 sq M.predicted among non-blacks MDRD (S/P/Bld) [Vol rate/Area] 57 mL/min/{1.73_m2} ml/min/1.73s q.m [facility] Glucose post fast [Mass/Vol] 72 mg/dL [facility] Comment on above: NORMAL <100 mg/dL PREDIABETES 101-126 mg/dL DIABETES 126 mg/dL or higher Interpretation and review of laboratory results Abnormal [facility] Potassium [Moles/Vol] 4.2 mmol/L [facility] Protein [Mass/Vol] 6.0 g/dL Low [facility] Sodium [Moles/Vol] 138 mmol/L [facility] Urea nitrogen [Mass/Vol] 35 mg/dL High [facility] CPKon 09-22-2023 CPK 282 IU/L High 55-170 [facility] ESRon 09-22-2023 ESR (Bld) [Velocity] 21 mm/h High 0-15 [facility] GLUCOSE (POC DEVICE)on 09-22 GLUCOSE, POINT OF CARE [address] [facility] GLUCOSE, POINT OF CARE [address] [facility] Tank Operator [id number] [facility] Operator [id number] [facility] GLUCOSE, POINT OF CARE [address] [facility] Tank Operator [id number] [facility] GLUCOSE, POINT OF CARE [address] [facility] Tank Operator [id number] [facility] GLUCOSE, POINT OF CARE 67 Low [facility] Interpretation and review of laboratory results Abnormal [facility] [employer] [id number] [facility] GLUCOSE, POINT OF CARE [address] [facility] Tank Operator [id number] [facility] GLUCOSE, POINT OF CARE 109 High [facility] GLUCOSE, POINT OF CARE [address] [facility] Interpretation and review of laboratory results Abnormal [facility] [employer] [id number] [facility] Operator [id number] [facility] HEMOGLOBIN A1Con 09-22-2023 Glucose [Mass/Vol] 280 mg/dL Normal [facility] HbA1c (Bld) [Mass fraction] 11.4 % High 0-6 [facility] Comment on above: Result Comment: NORMAL <5.7% PREDIABETES 5.7-6.4% DIABETES 6.5% OR HIGHER Glucose [Mass/Vol] 280 mg/dL [facility] HbA1c (Bld) [Mass fraction] 11.4 % High 0 - 6 % [facility] Comment on above: NORMAL <5.7% PREDIABETES 5.7-6.4% DIABETES 6.5% OR HIGHER Interpretation and review of laboratory results Abnormal [place] MAGNESIUMon 09-22-2023 Magnesium [Mass/Vol] 2.0 mg/dL Normal 1.6-2.3 [facility] Magnesium [Mass/Vol] 2.0 mg/dL [facility] MR Brain WO contraston 09-22 IMPRESSION: No [...] vascular flow voids are preserved. __ OTHER: [id number] sphenoid sinus mucosal inflammatory change, + polypoidal [...] vascular flow voids are preserved. __ OTHER: Jewd-pk-[id number] sphenoid sinus mucosal inflammatory change, + polypoidal features on the right. IMPRESSION IMPRESSION: No infarct, mass or hemorrhage [facility] Radiology Study observation (narrative) [facility] MR Brain WO contrastOrdered By: Eduin De León on 09-22-2023 [facility] Work Phone: MRI BRAIN WITHOUT CONTRASTon 09-22-2023 [...] vascular flow voids are preserved. __ OTHER: Wpjh-ou-[id number] sphenoid sinus mucosal inflammatory change, + polypoidal features on the right. IMPRESSION: No infarct, mass or hemorrhage Normal [facility] MRSA SCREENon 09-22-2023 MRSA DNA MEETA+probe Ql (Unsp spec) Negative Normal NEGATIVE [facility] STAPH AUREUS SCREEN Positive Abnormal NEGATIVE [facility] Comment on above: Result Comment: TEST ING PERFORMED BY PCR No Panel Informationon 09-22 [facility] Interpretation and review of laboratory results Abnormal [facility] POCT GLUCOSEon 09-22-2023 Glucose [Mass/Vol] 98 mg/dL Normal 70-100 [facility] GENERAL OPHTHALMOLOGIST [id number] Normal [facility] Glucose [Mass/Vol] 73 mg/dL Normal 70-100 [facility] GENERAL OPHTHALMOLOGIST [id number] Normal [facility] Glucose [Mass/Vol] 67 mg/dL Low 70-100 [facility] GENERAL OPHTHALMOLOGIST [id number] Normal [facility] Glucose [Mass/Vol] 80 mg/dL Normal 70-100 [facility] GENERAL OPHTHALMOLOGIST [id number] Normal [facility] Glucose [Mass/Vol] 95 mg/dL Normal 70-100 [facility] Glucose [Mass/Vol] 109 mg/dL High 70-100 [facility] GENERAL OPHTHALMOLOGIST [id number] Normal [facility] GENERAL OPHTHALMOLOGIST [id number] Normal [facility] Glucose [Mass/Vol] 158 mg/dL High 70-100 [facility] GENERAL OPHTHALMOLOGIST [id number] Normal [facility] PROCALCITONINon 09-22-2023 PROCALCITONIN 0.08 ng/mL Normal 0.00-0.25 [facility] Comment on above: Result Comment: PCT Interpretation Less than 0.10 ng/mL, antibiotic therapy strongly discouraged. 0.10-0.25 ng/mL, antibiotic therapy discouraged. 0.25-0.50 ng/mL, antibiotic therapy encouraged. Greater than 0.50 ng/mL, antibiotic therapy strongly encouraged. PROCALCITONIN 0.08 ng/mL 0.00 - 0.25 ng/mL [facility] Comment on above: PCT Interpretation Less than 0.10 ng/mL, antibiotic therapy strongly discouraged. 0.10-0.25 ng/mL, antibiotic therapy discouraged. 0.25-0.50 ng/mL, antibiotic therapy encouraged. Greater than 0.50 ng/mL, antibiotic therapy strongly encouraged. [facility] RAPID TOX SCREEN,URINEon AMPHETAMINE Negative Normal NEGATIVE [facility] Comment on above: Result Comment: <500 ng/ml CUTOFF BARBITURATES Negative Normal NEGATIVE [facility] Comment on above: Result Comment: <200 ng/ml CUTOFF BENZODIAZEPINES Positive Abnormal NEGATIVE [facility] Comment on above: Result Comment: <200 ng/ml CUTOFF *Unconfirmed Screening Result* Unconfirmed screening results are to be used only for medical treatment purposes. BUPRENORPHINE Negative Normal NEGATIVE [facility] Comment on above: Result Comment: <12. 5 ng/ml CUTOFF CANNABINOIDS Negative Normal NEGATIVE [facility] Comment on above: Result Comment: <50 ng/ml CUTOFF COCAINE Negative Normal NEGATIVE [facility] Comment on above: Result Comment: <150 ng/ml CUTOFF FENTANYL Negative Normal NEGATIVE [facility] Comment on above: Result Comment: 20 n g/mL CUTOFF *Unconfirmed Screening Result* Unconfirmed screening results are to be used only for medical treatment purposes. This test has not been approved by the FDA. MDMA Positive Abnormal NEGATIVE [facility] Comment on above: Result Comment: <100 0 ng/ml CUTOFF METHADONE Negative Normal NEGATIVE [facility] Comment on above: Result Comment: Meth adone Metabolite <100 ng/ml C[facility]OFF METHAMPHETAMINE Negative Normal NEGATIVE [facility] Comment on above: Result Comment: <500 ng/ml CUTOFF OPIATES Negative Normal NEGATIVE [facility] Comment on above: Result Comment: <300 ng/ml C[facility]OFF OXYCODONE Negative Normal NEGATIVE [facility] Comment on above: Result Comment: <100 ng/ml [facility] TRICYCLIC ANTIDEPRESSANTS Negative Normal NEGATIVE [facility] Comment on above: Result Comment: <100 0 ng/ml C[facility]OFF RESPIRATORY SYNCYTIAL VIRUS PCRon 09-22-2023 RSV Ag IA Ql (Unsp spec) Negative NEGATIVE [facility] RSVon 09-22-2023 RSV Negative Normal NEGATIVE [facility] SEDIMENTATION RATE, AUTOMATE Don 09-22-2023 ESR (Bld) [Velocity] 21 mm/h [facility] Interpretation and review of laboratory results Abnormal [place] TOXICOLOGY DRUG SCREEN, URIN Harpreet 09-22-2023 Amphetamine (U) [Mass/Vol] Negative N EGATIVE NG/ML [facility] Comment on above: <500 ng/ml CUTOFF Barbiturates Screen Ql (U) Negative N EGATIVE NG/ML [facility] Comment on above: <200 ng/ml CUTOFF Benzodiazepines Ql (U) Positive Abnormal NEGAT RAJAN NG/ML [facility] Comment on above: <200 ng/ml CUTOFF *Unconfirmed Screening Result* Unconfirmed screening results are to be used only for medical treatment purposes. Benzoylecgonine Ql (U) Negative NEGAT RAJAN NG/ML [facility] Comment on above: <150 ng/ml C[facility]OFF Buprenorphine Ql (U) Negative NEGATIV E NG/ML [facility] Comment on above: <12.5 ng/ml CUTOFF Cannabinoids Screen Ql (U) Negative N EGATIVE NG/ML [facility] Comment on above: <50 ng/ml CUTOFF Fentanyl Negative NEGATIVE NG/ML [facility] Comment on above: 20 ng/mL CUTOFF *Unconfirmed Screening Result* Unconfirmed screening results are to be used only for medical treatment purposes. This test has not been approved by the FDA. Interpretation and review of laboratory results Abnormal [facility] Methadone Screen Ql (U) Negative NEGA TIVE NG/ML [facility] Comment on above: Methadone Metabolite <100 ng/ml CUTOFF Methamphetamine (U) [Mass/Vol] Negative NEGATIVE NG/ML [facility] Comment on above: <500 ng/ml CUTOFF Methylenedioxymethamphetami ne Ql (Unsp spec) Positive Abnormal NEGATIVE NG/ML [facility] Comment on above: <1000 ng/ml C[facility]OFF Opiates Screen Ql (U) Negative NEGATI VE NG/ML [facility] Comment on above: <300 ng/ml CUTOFF oxyCODONE Ql (U) Negative NEGATIVE NG/ML [facility] Comment on above: <100 ng/ml CUTOFF Tricyclic antidepressants Screen Ql (U) Negative NEGATIVE NG/ML [facility] Comment on above: <1000 ng/ml CUTOFF [facility] TROPONIN I, HIGH SENSITIVITY on 09-22-2023 TROPONIN I, HIGH SENSITIVITY 28 pg/mL High 0-20 [facility] Comment on above: Result Comment: Indeterminant: >12 to 100 pg/mL female >20 to 100 pg/mL male Indicative of myocardial injury. Serial sampling is recommended, a change of greater than or equal to 20 pg/mL is indicative of acute coronary syndrome. Interpretation and review of laboratory results Abnormal [facility] TROPONIN I, HIGH SENSITIVITY 28 pg/mL High 0 - 20 pg/mL [facility] Comment on above: Indeterminant: >12 to 100 pg/mL female >20 to 100 pg/mL male Indicative of myocardial injury. Serial sampling is recommended, a change of greater than or equal to 20 pg/mL is indicative of acute coronary syndrome. [facility] TSH W/FT4 REFLEXon 3 TSH Qn 0.594 m[IU]/L [facility] TSH,REFLEX FREE T4on 023 TSH,REFLEX FREE T4 0.594 uIU/ML Normal 0.46-4.68 [facility] VENTILATOR SETTINGSon 2022 fiO2 30% Normal [facility] PEEP 5 cmH2O Normal [facility] PRESSURE SUPPORT 5 cmH2O Normal [facility] VENT SETTING PS Normal [facility] BIPAP AndOr CPAP setting Ventilator PS [facility] Oxygen/Inspired gas setting [Volume Fraction] Ventilator 30% % [facility] Positive end expiratory pressure setting Ventilator 5 cmH2O [facility] Pressure support setting Ventilator 5 cmH2O [facility] ALCOHOLon 09-21-2023 Ethanol [Mass/Vol] mg/dL Normal 0-10 [facility] Comment on above: Result Comment: INTOXICATION >80 MG/DL FATAL >400 MG/DL ALCOHOL (ETHANOL),BLOODon Ethanol [Mass/Vol] mg/dL [facility] Comment on above: INTOXICATION >80 MG/DL FATAL >400 MG/DL ARTERIAL BLOOD GASon 023 BASE EXCESS 1.3 mEq/L Normal 0-2 [facility] cHCO3 (P,ST)C 25.9 mEq/L Normal 22-26 [facility] ctHb 14.1 g/dl Normal [facility] FCOHb 0.6 % [facility] FMetHb 0.5 % Normal [facility] FO2Hb 98.7 % Normal [facility] pCO2, arterial 40 mmHg Normal 35-45 [facility] pH, arterial 7.42 Normal 7.350-7.450 [facility] pO2,arterial 492 mmHg High 80-100 [facility] sO2,arterial 99.9 % Normal 95-100 [facility] Base excess Calc (BldV) [Moles/Vol] 1.3 mmol/L [facility] Carboxyhemoglobin (Bld) [Mass fraction] 0.6 % [facility] CO2 (Bld) [Partial pressure] 40 mm[Hg] [facility] HCO3 (Bld) [Moles/Vol] 25.9 mmol/L A [facility] Hemoglobin (Bld) [Mass/Vol] 14.1 g/dL [facility] Interpretation and review of laboratory results Abnormal [facility] Methemoglobin (BldC) [Mass fraction] 0.5 % [facility] Oxygen (Bld) [Partial pressure] 492 mm[Hg] High [facility] Oxyhemoglobin (Bld) [Mass fraction] 98.7 % [facility] pH (Bld) 7.42 [pH] 7.350 - 7.450 [facility] BLOOD CULTUREon 09-21-2023 Bacteria identified Cx Nom (Bld) SPECIMEN DESCRIPTION PERIPHERAL BLOOD DRAW SPECIAL REQUESTS LEFT HAND CULTURE NO GROWTH 5 DAYS * Result Note: Testing performed at [place] [address] * REPORT STATUS 09/26/2023 * Result Note: FINAL * Normal [facility] Comment on above: Performed By: #### L HSV #### Testing performed at [facility] Bacteria identified Cx Nom (Bld) SPECIMEN DESCRIPTION PERIPHERAL BLOOD DRAW SPECIAL REQUESTS LEFT ARM CULTURE NO GROWTH 5 DAYS * Result Note: Testing performed at [place] [address] * REPORT STATUS 09/26/2023 * Result Note: FINAL * Normal [facility] Comment on above: Performed By: #### L HSV #### Testing performed at [facility] CBCon 09-21-2023 ABSOLUTE BAS 0.0 10*3/uL Normal 0.0-0.2 [facility] ABSOLUTE EOS 0.0 10*3/uL Normal 0.0-0.7 [facility] ABSOLUTE NEUTROPHIL COUNT 9.8 10*3/uL High 1.4-6.5 [facility] Basophils/100 WBC (Bld) 0.2 % Normal 0.0-2.0 A [facility] DTYPE AUTO DIFF Normal [facility] Eosinophils/100 WBC (Bld) 0.2 % Normal 0.0-11.0 [facility] Lymphocytes (Bld) [#/Vol] 0.6 10*3/uL Low 1.2-3.4 [facility] Lymphocytes/100 WBC (Bld) 5.6 % Low 20.0-55.0 [facility] Monocytes (Bld) [#/Vol] 0.3 10*3/uL Normal 0.0-0.7 [facility] Monocytes/100 WBC (Bld) 3.0 % Normal 0.0-10.0 [facility] Neutrophils/100 WBC (Bld) 91.0 % High 37.0-75.0 [facility] Erythrocyte distribution width (RBC) [Ratio] 14.3 % Normal 11.5-14.5 [facility] Hematocrit (Bld) [Volume fraction] 42.6 % Normal 42.0-52.0 [facility] Hemoglobin (Bld) [Mass/Vol] 14.5 g/dL Normal 14.0-18. 0 [facility] MCH (RBC) [Entitic mass] 29.1 pg Normal 26.0-35.0 [facility] MCHC (RBC) [Mass/Vol] 34.0 g/dL Normal 27.0-37.0 [facility] MCV (RBC) [Entitic vol] 85.6 fL Normal 80.0-100.0 [facility] Platelet mean volume (Bld) [Entitic vol] 8.5 fL Normal 7.4-11.0 [facility] Platelets (Bld) [#/Vol] 176 10*3/uL Normal 130-400 [facility] RBC (Bld) [#/Vol] 4.98 10*6/uL Normal 4.0-6.1 [facility] WBC (Bld) [#/Vol] 10.8 10*3/uL Normal 3.6-11.0 [facility] CBC, EDIF, PLATELETon 2022 ABSOLUTE BASOPHIL COUNT 0.0 10*3/uL 0.0 - 0.2 10*3/uL [facility] Basophils/100 WBC (Bld) 0.2 % 0.0 - 2.0 % [facility] Differential cell count method Nom (Bld) AUTO DIFF % [facility] Eosinophils (Bld) [#/Vol] 0.0 10*3/uL 0. 0 - 0.7 10*3/uL [facility] Eosinophils/100 WBC (Bld) 0.2 % 0.0 - 11.0 % [facility] Erythrocyte distribution width (RBC) [Ratio] 14.3 % 11.5 - 14.5 % [facility] Hematocrit (Bld) [Volume fraction] 42.6 % 42.0 - 52.0 % [facility] Hemoglobin (Bld) [Mass/Vol] 14.5 g/dL [facility] Interpretation and review of laboratory results Abnormal [facility] Lymphocytes (Bld) [#/Vol] 0.6 10*3/uL Low 1. 2 - 3.4 10*3/uL [facility] Lymphocytes/100 WBC (Bld) 5.6 % Low 20 .0 - 55.0 % [facility] MCH (RBC) [Entitic mass] 29.1 pg 26. 0 - 35.0 PG [facility] MCHC (RBC) [Mass/Vol] 34.0 g/dL [facility] MCV (RBC) [Entitic vol] 85.6 fL [facility] Monocytes (Bld) [#/Vol] 0.3 10*3/uL 0.0 - 0.7 10*3/uL [facility] Monocytes/100 WBC (Bld) 3.0 % 0.0 - 10.0 % [facility] Neutrophils (Bld) [#/Vol] 9.8 10*3/uL High 1. 4 - 6.5 10*3/uL [facility] Neutrophils/100 WBC (Bld) 91.0 % High 37 .0 - 75.0 % [facility] Platelet mean volume (Bld) [Entitic vol] 8.5 fL [facility] Platelets (Bld) [#/Vol] 176 10*3/uL 130 - 400 10*3/uL [facility] RBC (Bld) [#/Vol] 4.98 10*6/uL 4.0 - 6.1 10*6/uL [facility] WBC (Bld) [#/Vol] 10.8 10*3/uL 3.6 - 11.0 10*3/uL [facility] CMP FASTINGon 09-21-2023 A:G RATIO 1.5 RATIO Normal 1.3-2.2 [facility] ALBUMIN 4.4 G/dl Normal 3.5-5.0 [facility] ALP [Catalytic activity/Vol] 103 U/L Normal 38-126 [facility] ALT [Catalytic activity/Vol] 34 U/L Normal <50 [facility] AST [Catalytic activity/Vol] 39 U/L Normal 17-59 [facility] Bilirubin [Mass/Vol] 0.6 mg/dL Normal 0.2-1.3 [facility] Calcium [Mass/Vol] 9.0 mg/dL Normal 8.4-10.2 [facility] Chloride [Moles/Vol] 103 mmol/L Normal 98-107 [facility] Comment on above: Result Comment: Juana spencer note: Triglyceride levels of 600mg/dL or higher may positively bias chloride results by approximately 2.1 mmol CO2 [Moles/Vol] 24 mmol/L Normal 22-30 [facility] Creatinine [Mass/Vol] 1.30 mg/dL High 0.7-1.2 [facility] GFR Information Unable to calculate GFR due to inappropriate age/gender/creatin ine value. Normal [facility] Glucose [Mass/Vol] 245 mg/dL High 70-100 [facility] Comment on above: Result Comment: NORMAL <100 mg/dL PREDIABETES 101-126 mg/dL DIABETES 126 mg/dL or higher Potassium [Moles/Vol] 4.0 mmol/L Normal 3.5-5.1 [facility] Protein [Mass/Vol] 7.3 g/dL Normal 6.3-8.2 [facility] Sodium [Moles/Vol] 135 mmol/L Low 137-145 [facility] Urea nitrogen [Mass/Vol] 37 mg/dL High 7-20 [facility] COMPREHENSIVE METABOLIC PANE Jt 09-21-2023 Albumin [Mass/Vol] 4.4 G/dl 3.5 - 5.0 G/dl [facility] Albumin/Globulin [Mass ratio] 1.5 {ratio} [facility] ALP [Catalytic activity/Vol] 103 U/L [facility] ALT [Catalytic activity/Vol] 34 U/L NINF [facility] AST [Catalytic activity/Vol] 39 U/L [facility] Bilirubin [Mass/Vol] 0.6 mg/dL [facility] Calcium [Mass/Vol] 9.0 mg/dL [facility] Chloride [Moles/Vol] 103 mmol/L [facility] Comment on above: Please note: Triglyc eride levels of 600mg/dL or higher may positively bias chloride results by approximately 2.1 mmol CO2 [Moles/Vol] 24 mmol/L [facility] Creatinine [Mass/Vol] 1.30 mg/dL High [facility] GFR COMMENT Unable to calculate GFR due to inappropriate age/gender/creatin ine value. [facility] Glucose post fast [Mass/Vol] 245 mg/dL [facility] Comment on above: NORMAL <100 mg/dL PREDIABETES 101-126 mg/dL DIABETES 126 mg/dL or higher Interpretation and review of laboratory results Abnormal [facility] Potassium [Moles/Vol] 4.0 mmol/L [facility] Protein [Mass/Vol] 7.3 g/dL [facility] Sodium [Moles/Vol] 135 mmol/L Low [facility] Urea nitrogen [Mass/Vol] 37 mg/dL [facility] CT HEAD WITHOUT CONTRASTon 1 11-22-2022 [...] intracranial hemorrhage or other acute finding. Normal [facility] CT Head WO contraston 2022 IMPRESSION: No [...] of intracranial hemorrhage or other acute finding. [facility] Study [facility] (narrative) [facility] contrastOrdered B y: Kris Cherry on 09-21-2023 [facility] Work Phone: CT SPINE CERVICAL WITHOUT CO [...] osseous abnormality. Degenerative changes detailed above. Normal [facility] GLUCOSE (POC DEVICE)on 09-21 GLUCOSE, POINT OF CARE [address] [facility] Interpretation and review of laboratory results Abnormal [facility] Operator [id number] [facility] GLUCOSE, POINT OF CARE [address] [facility] Interpretation and review of laboratory results Abnormal [facility] Operator [id number] [facility] LACTATE, BLOODon 09-21-2023 Interpretation and review of laboratory results Abnormal [facility] Lactate [Moles/Vol] 2.1 mmol/L Critically high 0.7 - 2.0 mmol/L [facility] Comment on above: PLEASE REPEAT INITIA L CRITICAL IN 3 HOURS IF ED OR INPATIENT SEPSIS PATIENT CALLED TO AND READ BACK BY VIGNESH FONTENOT IN ER 12.6.23 1706 BY MAUREEN [facility] LACTATE,BLOODon 09-21-2023 Lactate [Moles/Vol] 2.1 mmol/L Critically high 0.7-2.0 [facility] Comment on above: Result Comment: PLEA SE REPEAT INITIAL CRITICAL IN 3 HOURS IF ED OR INPATIENT SEPSIS PATIENT CALLED TO AND READ BACK BY VIGNESH FONTENOT IN ER 12.6.23 1706 BY MAUREEN MAGNESIUMon 09-21-2023 Magnesium [Mass/Vol] 2.0 mg/dL Normal 1.6-2.3 [facility] Magnesium [Mass/Vol] 2.0 mg/dL [facility] No Panel Informationon 09-21 Interpretation and review of laboratory results Abnormal [facility] POCT GLUCOSEon 09-21-2023 Glucose [Mass/Vol] 232 mg/dL High 70-100 [facility] GENERAL OPHTHALMOLOGIST [id number] Normal [facility] Portable XR Chest Views APon 09-21-2023 IMPRESSION: Appropriate positioning of the endotracheal tube. No acute cardiopulmonary abnormality. RADIOLOGY EXAM: XR CHEST AP PORTABLE REASON FOR EXAM: ET placement TECHNIQUE: Single frontal view COMPARISON: None FINDINGS: Endotracheal tube terminates 3.4 cm above the ravindra. No pneumothorax, pleural effusion, or focal consolidation. The cardiac silhouette is not enlarged. RADIOLOGY Deven Junior T, DO - 09/21/2023 EXAM: XR CHEST AP PORTABLE REASON FOR EXAM: ET placement TECHNIQUE: Single frontal view COMPARISON: None FINDINGS: Endotracheal tube terminates 3.4 cm above the ravindra. No pneumothorax, pleural effusion, or focal consolidation. The cardiac silhouette is not enlarged. IMPRESSION IMPRESSION: Appropriate positioning of the endotracheal tube. No acute cardiopulmonary abnormality. [facility] Radiology Study observation (narrative) [facility] Portable XR Chest Views APOr dered By: Deven Junior on 09-21-2023 [facility] Work Phone: RAPID TOX SCREEN,URINEon AMPHETAMINE Negative Normal NEGATIVE [facility] Comment on above: Result Comment: <500 ng/ml CUTOFF BARBITURATES Negative Normal NEGATIVE [facility] Comment on above: Result Comment: <200 ng/ml CUTOFF BENZODIAZEPINES Positive Abnormal NEGATIVE [facility] Comment on above: Result Comment: <200 ng/ml CUTOFF *Unconfirmed Screening Result* Unconfirmed screening results are to be used only for medical treatment purposes. BUPRENORPHINE Negative Normal NEGATIVE [facility] Comment on above: Result Comment: <12. 5 ng/ml CUTOFF CANNABINOIDS Negative Normal NEGATIVE [facility] Comment on above: Result Comment: <50 ng/ml CUTOFF COCAINE Negative Normal NEGATIVE [facility] Comment on above: Result Comment: <150 ng/ml CUTOFF FENTANYL Negative Normal NEGATIVE [facility] Comment on above: Result Comment: 20 n g/mL CUTOFF *Unconfirmed Screening Result* Unconfirmed screening results are to be used only for medical treatment purposes. This test has not been approved by the FDA. MDMA Positive Abnormal NEGATIVE [facility] Comment on above: Result Comment: <100 0 ng/ml CUTOFF METHADONE Negative Normal NEGATIVE [facility] Comment on above: Result Comment: Meth adone Metabolite <100 ng/ml CUTOFF METHAMPHETAMINE Negative Normal NEGATIVE [facility] Comment on above: Result Comment: <500 ng/ml CUTOFF OPIATES Negative Normal NEGATIVE [facility] Comment on above: Result Comment: <300 ng/ml CUTOFF OXYCODONE Negative Normal NEGATIVE [facility] Comment on above: Result Comment: <100 ng/ml CUTOFF TRICYCLIC ANTIDEPRESSANTS Negative Normal NEGATIVE [facility] Comment on above: Result Comment: <100 0 ng/ml CUTOFF SCREEN: MRSA ONLY, NARES (IS OLATION SCREEN)on 09-21-2023 Interpretation and review of laboratory results Abnormal [facility] MRSA isol Org specific cx Ql (Nose) Negative NEGATIVE [facility] STAPHYOCOCCUS AUREUS BY PCR Positive Abnormal NEGATIVE [facility] Comment on above: TESTING PERFORMED BY PCR [facility] TOXICOLOGY DRUG SCREEN, URIN Hrapreet 09-21-2023 Amphetamine (U) [Mass/Vol] Negative N EGATIVE NG/ML [facility] Comment on above: <500 ng/ml CUTOFF Barbiturates Screen Ql (U) Negative N EGATIVE NG/ML [facility] Comment on above: <200 ng/ml CUTOFF Benzodiazepines Ql (U) Positive Abnormal NEGAT RAJAN NG/ML [facility] Comment on above: <200 ng/ml CUTOFF *Unconfirmed Screening Result* Unconfirmed screening results are to be used only for medical treatment purposes. Benzoylecgonine Ql (U) Negative NEGAT RAJAN NG/ML [facility] Comment on above: <150 ng/ml CUTOFF Buprenorphine Ql (U) Negative NEGATIV E NG/ML [facility] Comment on above: <12.5 ng/ml CUTOFF Cannabinoids Screen Ql (U) Negative N EGATIVE NG/ML [facility] [employer] [facility] Comment on above: <50 ng/ml CUTOFF Fentanyl Negative NEGATIVE NG/ML [facility] Comment on above: 20 ng/mL CUTOFF *Unconfirmed Screening Result* Unconfirmed screening results are to be used only for medical treatment purposes. This test has not been approved by the FDA. Interpretation and review of laboratory results Abnormal [facility] Methadone Screen Ql (U) Negative NEGA TIVE NG/ML [facility] [employer] [facility] Comment on above: Methadone Metabolite <100 ng/ml CUTOFF Methamphetamine (U) [Mass/Vol] Negative NEGATIVE NG/ML [facility] Comment on above: <500 ng/ml CUTOFF Methylenedioxymethamphetami ne Ql (Unsp spec) Positive Abnormal NEGATIVE NG/ML [facility] Comment on above: <1000 ng/ml CUTOFF Opiates Screen Ql (U) Negative NEGATI VE NG/ML [facility] Comment on above: <300 ng/ml CUTOFF oxyCODONE Ql (U) Negative NEGATIVE NG/ML [facility] Comment on above: <100 ng/ml CUTOFF Tricyclic antidepressants Screen Ql (U) Negative NEGATIVE NG/ML [facility] Comment on above: <1000 ng/ml CUTOFF [facility] URINALYSIS, MACROon 09-21-20 23 Bilirubin Ql (U) Negative NEGATIVE [facility] Clarity (U) CLEAR CLEAR [facility] Color (U) YELLOW YELLOW [facility] Glucose Test strip (U) [Mass/Vol] 500 mg/dl Abnormal NEGATIVE [facility] Hemoglobin Ql (U) MODERATE Abnormal NEGATIVE [facility] Ketones (U) [Mass/Vol] 15 mg/dL Abnormal NEGATIVE [facility] Leukocyte esterase Test strip Ql (U) Negative NEGATIVE [facility] Nitrite Ql (U) Negative NEGATIVE [facility] pH (U) 5.5 [pH] 5.0 - 7.0 [facility] Protein Ql (U) >300 Abnormal NEGATIVE mg/dl [facility] Specific gravity (U) [Rel density] >1.030 High 1.010 - 1.025 [facility] Urobilinogen (U) [Mass/Vol] 0.2 mg/dL [facility] URINE CULTUREon 09-21-2023 Bacteria identified Cx Nom (U) SPECIMEN DESCRIPTION URINE - OTHER CULTURE NO GROWTH 2 DAYS * Result Note: Testing performed at [place] [address] * REPORT STATUS 09/23/2023 * Result Note: FINAL * Normal [facility] Comment on above: Performed By: #### A URNC #### [place] [address] Testing performed at [place] [id number] URINE MACROSCOPICon 09-21-20 23 Bilirubin Ql (U) Negative Normal NEGATIVE [facility] Clarity (U) CLEAR Normal CLEAR [facility] Color (U) YELLOW Normal YELLOW [facility] Glucose Ql (U) 500 mg/dl Abnormal [facility] pH (U) 5.5 [pH] Normal 5.0-7.0 [facility] URINE HEMOGLOBIN MODERATE Abnormal NEGATIVE [facility] URINE KETONE 15 mg/dl Abnormal NEGATIVE [facility] URINE LEUKOTEST Negative Normal NEGATIVE [facility] URINE NITRATES Negative Normal NEGATIVE [facility] URINE SPEC GRAVITY >1.030 High 1.010-1.025 [facility] URINE TOTAL PROTEIN >300 Abnormal NEGATIVE [facility] Urobilinogen Qn (U) 0.2 {Rachana'U}/dL Normal 0.2-1.0 [facility] URINE MICROSCOPICon 09-21-20 23 BACTERIA TRACE Abnormal NEGATIVE [facility] CASTS NONE Normal NONE [facility] CRYSTAL NONE Normal NONE [facility] Epithelial cells LM Ql (Urine sed) NONE Normal [facility] Mucus Ql (Urine sed) Negative Normal NEGATIVE [facility] URINE COMMENT REFLEX CULTURE PER ESTABLISHED CRITERIA. Normal [facility] URINE RBC'S 1 TO 5 Normal NEGATIVE [facility] URINE WBC'S Negative Normal NEGATIVE [facility] Bacteria LM.HPF (Urine sed) [#/Area] TRACE Abnormal NEGATIVE [facility] Casts LM.LPF (Urine sed) [#/Area] NONE NONE /LPF [facility] Crystals LM Nom (Urine sed) NONE NONE [facility] Epithelial cells LM Ql (Urine sed) NONE /HPF [facility] Mucus Ql (Urine sed) Negative NEGATIVE [facility] RBC LM.HPF (Urine sed) [#/Area] 1 TO 5 NEGATIVE /HPF [facility] Urine sediment comments LM Everardo (Urine sed) REFLEX CULTURE PER ESTABLISHED CRITERIA. [facility] WBC LM.HPF (Urine sed) [#/Area] Negative NEGATIVE /HPF [facility] VENTILATOR SETTINGSon 2022 F RATE 16 breaths/minute Normal [facility] fiO2 100 % Normal [facility] PEEP 5 cmH2O Normal [facility] VENT SETTING AC Normal [facility] [place] 500 cc [facility] BIPAP AndOr CPAP setting [facility]/Inspired gas setting [Volume Fraction] Ventilator 100 % [facility] Positive end expiratory pressure setting Ventilator 5 cmH2O [facility] Respiratory rate 16 /min breaths/min u te [facility] Tidal volume setting Ventilator 500 cc [facility] XR CHEST AP PORTABLEon 09-21 XR CHEST AP PORTABLE EXAM: XR CHEST AP PORTABLE REASON FOR EXAM: ET placement TECHNIQUE: Single frontal view COMPARISON: None FINDINGS: Endotracheal tube terminates 3.4 cm above the ravindra. No pneumothorax, pleural effusion, or focal consolidation. The cardiac silhouette is not enlarged. IMPRESSION: Appropriate positioning of the endotracheal tube. No acute cardiopulmonary abnormality. Normal [facility] Diabetic Office/Clinic Noteo n 05-13-2023 Diabetic Office/Clinic [...] repeat rule of 15's. -Continue to eat 3846-0530 calories per day. Best to consume calories [...] blood sugar readings and call these to [phone] in 2 weeks for myself to review. Call sooner if you're experiencing frequent blood sugars <60 or >350. -Repeat A1c and appointment with myself in 3 months or sooner if needed Jarod Aviles CNP [facility] [address], [address] [place] [address] Time Spent with the Patient I have [...] 0.5 mg, Subcutaneous, Weekly, 11 refills Pen [place], See Instructions, 11 refills Toujeo Max SoloStar 300 units/mL subcutaneous solution, See Instructions, 11 refills Allergies No Known Medication Allergies Social History Alcohol Never Tobacco N (more content not included)... Normal [facility] Diabetic Office/Clinic Noteo n 02-11-2023 [...] care Yes HTN, taking lisinopril No CAD, NC, CVA, CHF or PVD Statin indicated, taking [...] heart attack, stroke and limb amputation -Eat 4054-5458 calories per day or less using a [...] plate starchy vegetables or grains. Recommend using Primary Data or similar type marian to track daily [...] range > (more content not included)... Normal [facility] CBC AUTO DIFFon 12-28-2022 BASO # 0.0 103/ul Normal 0.0-0.1 [facility] Comment on above: Performed By: #### P OCGLUC #### [facility] [address] [place] [address] [address] Karina Heath Basophils/100 WBC (Bld) 0.6 % Normal 0.2-2.0 T [facility] Comment on above: Performed By: #### P OCGLUC #### [facility] [address] [place] [address] Dr. Karina Heath EO # 0.1 103/ul Normal 0.0-0.7 [facility] Comment on above: Performed By: #### P OCGLUC #### [facility] [address] [place] [address] Dr. Karina Heath Eosinophils/100 WBC (Bld) 1.1 % Normal 0.9-7.0 [facility] Comment on above: Performed By: #### P OCGLUC #### [facility] [address] [place] [address] Dr. Karina Heath Erythrocyte distribution width (RBC) [Ratio] 13.5 % Normal 11.0-15.0 [facility] Comment on above: Performed By: #### P OCGLUC #### [facility] [address] [place] [address] Dr. Karina Heath Hematocrit (Bld) [Volume fraction] 35.2 % Critically low 42.0-54.0 [facility] Comment on above: Performed By: #### P OCGLUC #### [facility] [address] [place] [address] Dr. Karina Heath Hemoglobin (Bld) [Mass/Vol] 12.0 g/dL Critically low 14.0 -18.0 [facility] Comment on above: Performed By: #### P OCGLUC #### [facility] [address] [place] [address] Dr. Karina Heath IG # 0.02 10e3/ul Normal 0.00-0.03 [facility] Comment on above: Performed By: #### P OCGLUC #### [facility] [address] [place] [address] Dr. Karina Heath IG % 0.3 % Normal 0.0-0.5 [facility] Comment on above: Performed By: #### P OCGLUC #### [facility] [address] [place] [address] Dr. Karina Heath LYMPH # 1.7 103/ul Normal 1.2-3.8 [facility] Comment on above: Performed By: #### P OCGLUC #### [facility] [address] [place] [address] Dr. Karina Heath Lymphocytes/100 WBC (Bld) 26.3 % Normal 20.5-60.0 [facility] Comment on above: Performed By: #### P OCGLUC #### [facility] [address] [place] [address] Dr. Karina Heath MANUAL DIFF REQ NO Normal [facility] Comment on above: Performed By: #### P OCGLUC #### [facility] [address] [place] [address] Dr. Karina Heath MCH (RBC) [Entitic mass] 28.6 pg Normal 25.9-34.0 [facility] Comment on above: Performed By: #### P OCGLUC #### [facility] [address] [place] [address] Dr. Karina Heath MCHC (RBC) [Mass/Vol] 34.1 g/dL Normal 29.9-35.2 [facility] Comment on above: Performed By: #### P OCGLUC #### [facility] [address] [place] [address] Dr. Karina Heath MCV (RBC) [Entitic vol] 83.8 fL Normal 80.0-94.0 [facility] Comment on above: Performed By: #### P OCGLUC #### [facility] [address] [place] [address] Dr. Karina Heath MONO # 0.5 103/ul Normal 0.3-0.8 [facility] Comment on above: Performed By: #### P OCGLUC #### [facility] [address] [place] [address] Dr. Karina Heath Monocytes/100 WBC (Bld) 7.0 % Normal 1.7-12.0 [facility] Comment on above: Performed By: #### P OCGLUC #### [facility] [address] [place] [address] Dr. Karina Heath NEUT # 4.2 103/ul Normal 1.4-6.5 [facility] Comment on above: Performed By: #### P OCGLUC #### [facility] [address] [place] [address] Dr. Karina Heath Neutrophils/100 WBC (Bld) 64.7 % Normal 43.0-75.0 [facility] Comment on above: Performed By: #### P OCGLUC #### [facility] [address] [place] [address] Dr. Karina Heath Platelet mean volume (Bld) [Entitic vol] 10.3 fL Normal 9.5-13.5 [facility] Comment on above: Performed By: #### P OCGLUC #### [facility] [address] [place] [address] Dr. Karina Heath PLT 189 103/ul Normal 150-450 [facility] Comment on above: Performed By: #### P OCGLUC #### [facility] [address] [place] [address] Dr. Karina Heath RBC 4.20 106/ul Critically low 4.70-6.10 [facility] Comment on above: Performed By: #### P OCGLUC #### [facility] [address] [place] [address] Dr. Karina Heath WBC 6.4 103/ul Normal 4.0-11.0 [facility] Comment on above: Performed By: #### P OCGLUC #### [facility] [address] [place] [address] Dr. Karina Heath ECHOCARDIO M/2D COMPLETEon 0 12-28-2022 ECHOCARDIO M/2D COMPLETE Patient: JOSÉ LUIS ESCUDERO Exam Date: 12/28/2022 : 1975 Gender:M Ordering : DR PAULINA WINTERS . Admission #: [id number] Family : Order #: [id number] CLICK HERE TO VIEW EXAM ECHOCARDIOGRAM REPORT [...] Sibley M.D. on 12/28/2022 at 17:50 Normal [facility] POINT OF CARE GLUCOSEon 12-15 Glucose [Mass/Vol] 229 mg/dL Critically high 74-106 [facility] Comment on above: Performed By: #### P OCGLUC #### [facility] [address] [place] [address] Dr. Karina Heath Glucose [Mass/Vol] 171 mg/dL Critically high -106 [facility] Comment on above: Performed By: #### C VDTBH #### [facility] [address] [place] [address] Dr. Karina Heath Glucose [Mass/Vol] 242 mg/dL Critically high -106 [facility] Comment on above: Performed By: #### C VDTBH #### [facility] [address] [place] [address] Dr. Karina Heath PROF 14(COMP METB)on 023 Albumin [Mass/Vol] 3.0 g/dL Critically low 3.4-5.0 [facility] Comment on above: Performed By: #### P OCGLUC #### [facility] [address] [place] [address] Dr. Karina Heath Albumin/Globulin [Mass ratio] 0.9 {ratio} Normal [facility] Comment on above: Performed By: #### P OCGLUC #### [facility] [address] [place] [address] Dr. Karina Heath ALP [Catalytic activity/Vol] 79 U/L Normal 46-116 [facility] Comment on above: Performed By: #### P OCGLUC #### [facility] [address] [place] [address] Dr. Karina Heath ALT [Catalytic activity/Vol] 27 U/L Normal 16-63 [facility] Comment on above: Performed By: #### P OCGLUC #### [facility] [address] [address] [address] Karina Heath Anion gap [Moles/Vol] 9.4 mmol/L Normal [facility] Comment on above: Performed By: #### P OCGLUC #### [facility] [address] [address] [address] Karina Heath AST [Catalytic activity/Vol] 21 U/L Normal 15-37 [facility] Comment on above: Performed By: #### P OCGLUC #### [facility] [address] [address] [address] Karina Heath Bilirubin [Mass/Vol] 0.2 mg/dL Normal 0.2-1.0 [facility] Comment on above: Performed By: #### P OCGLUC #### [facility] [address] [address] [address] Karina Heath Calcium [Mass/Vol] 8.6 mg/dL Normal 8.5-10.1 [facility] Comment on above: Performed By: #### P OCGLUC #### [facility] [address] [place] [address] Dr. Karina Heath Chloride [Moles/Vol] 104 mmol/L Normal 98-107 [facility] Comment on above: Performed By: #### P OCGLUC #### [facility] [address] [address] [address] Karina Heath CO2 [Moles/Vol] 26.9 mmol/L Normal 21.0-32.0 [facility] Comment on above: Performed By: #### P OCGLUC #### [facility] [address] [address] [address] Karina Heath Creatinine [Mass/Vol] 0.95 mg/dL Normal 0.70-1.30 [facility] Comment on above: Performed By: #### P OCGLUC #### [facility] [address] [address] [address] Karina Heath EGFR-AF GREEK >60 Normal >=60 [facility] Comment on above: Performed By: #### P OCGLUC #### [facility] [address] [address] [address] Karina Heath EGFR-NON AF GREEK >60 Normal >=60 [facility] Comment on above: Performed By: #### P OCGLUC #### [facility] [address] [address] [address] Karina Heath Globulin (S) [Mass/Vol] 3.2 g/dL Normal [facility] Comment on above: Performed By: #### P OCGLUC #### [facility] [address] [address] [address] Karina Heath Glucose [Mass/Vol] 258 mg/dL Critically high 74-106 [facility] Comment on above: Performed By: #### P OCGLUC #### [facility] [address] [address] [address] Karina Heath Potassium [Moles/Vol] 3.3 mmol/L Critically low 3.5-5.1 [facility] Comment on above: Performed By: #### P OCGLUC #### [facility] [address] [address] [address] Karina Heath Protein [Mass/Vol] 6.2 g/dL Critically low 6.4-8.2 [facility] Comment on above: Performed By: #### P OCGLUC #### [facility] [address] [address] [address] Karina Heath Sodium [Moles/Vol] 137 mmol/L Normal 136-145 [facility] Comment on above: Performed By: #### P OCGLUC #### [facility] [address] [address] [address] Karina Heath Urea nitrogen [Mass/Vol] 16.0 mg/dL Normal 7.0-18.0 [facility] Comment on above: Performed By: #### P OCGLUC #### [facility] [address] [address] [address] Karina Heath Urea nitrogen/Creatinine [Mass ratio] 16.8 mg/mg Normal [facility] Comment on above: Performed By: #### P OCGLUC #### [facility] [address] [address] [address] Karina Heath CBC AUTO DIFFon 12-27-2022 BASO # 0.0 103/ul Normal 0.0-0.1 [facility] Comment on above: Performed By: #### C BC #### [facility] [address] [address] [address] Karina Heath Basophils/100 WBC (Bld) 0.5 % Normal 0.2-2.0 [facility] Comment on above: Performed By: #### C BC #### [facility] [address] [place] [address] Dr. Karina Heath EO # 0.1 103/ul Normal 0.0-0.7 [facility] Comment on above: Performed By: #### C BC #### [facility] [address] [place] [address] Dr. Karina Heath Eosinophils/100 WBC (Bld) 0.8 % Critically low 0.9-7. 0 [facility] Comment on above: Performed By: #### C BC #### [facility] [address] [place] [address] Dr. Karina Heath Erythrocyte distribution width (RBC) [Ratio] 13.2 % Normal 11.0-15.0 [facility] Comment on above: Performed By: #### C BC #### [facility] [address] [place] [address] Dr. Karina Heath Hematocrit (Bld) [Volume fraction] 37.1 % Critically low 42.0-54.0 [facility] Comment on above: Performed By: #### C BC #### [facility] [address] [place] [address] Dr. Karina Heath Hemoglobin (Bld) [Mass/Vol] 13.0 g/dL Critically low 14.0 -18.0 [facility] Comment on above: Performed By: #### C BC #### [facility] [address] [place] [address] Dr. Karina Heath IG # 0.03 10e3/ul Normal 0.00-0.03 [facility] Comment on above: Performed By: #### C BC #### [facility] [address] [place] [address] Dr. Karina Heath IG % 0.4 % Normal 0.0-0.5 [facility] Comment on above: Performed By: #### C BC #### [facility] [address] [place] [address] Dr. Karina Heath LYMPH # 1.2 103/ul Normal 1.2-3.8 [facility] Comment on above: Performed By: #### C BC #### [facility] [address] [place] [address] Dr. Karina Heath Lymphocytes/100 WBC (Bld) 15.3 % Critically low 20.5-6 0.0 [facility] Comment on above: Performed By: #### C BC #### [facility] [address] [place] [address] Dr. Karina Heath MANUAL DIFF REQ NO Normal [facility] Comment on above: Performed By: #### C BC #### [facility] [address] [place] [address] Dr. Karina Heath MCH (RBC) [Entitic mass] 28.7 pg Normal 25.9-34.0 [facility] Comment on above: Performed By: #### C BC #### [facility] [address] [place] [address] Dr. Karina Heath MCHC (RBC) [Mass/Vol] 35.0 g/dL Normal 29.9-35.2 [facility] Comment on above: Performed By: #### C BC #### [facility] [address] [place] [address] Dr. Karina Heath MCV (RBC) [Entitic vol] 81.9 fL Normal 80.0-94.0 [facility] Comment on above: Performed By: #### C BC #### [facility] [address] [place] [address] Dr. Karina Heath MONO # 0.6 103/ul Normal 0.3-0.8 [facility] Comment on above: Performed By: #### C BC #### [facility] [address] [address] [address] Karina Heath Monocytes/100 WBC (Bld) 7.1 % Normal 1.7-12.0 [facility] Comment on above: Performed By: #### C BC #### [facility] [address] [address] [address] Karina Heath NEUT # 5.8 103/ul Normal 1.4-6.5 [facility] Comment on above: Performed By: #### C BC #### [facility] [address] [address] [address] Karina Heath Neutrophils/100 WBC (Bld) 75.9 % Critically high 43.0- 75.0 [facility] Comment on above: Performed By: #### C BC #### [facility] [address] [address] [address] Karina Heath Platelet mean volume (Bld) [Entitic vol] 9.6 fL Normal 9.5-13.5 [facility] Comment on above: Performed By: #### C BC #### [facility] [address] [address] [address] Karina Heath PLT 200 103/ul Normal 150-450 [facility] Comment on above: Performed By: #### C BC #### [facility] [address] [address] [address] Karina Heath RBC 4.53 106/ul Critically low 4.70-6.10 [facility] Comment on above: Performed By: #### C BC #### [facility] [address] [address] [address] Karina Heath WBC 7.7 103/ul Normal 4.0-11.0 [facility] Comment on above: Performed By: #### C BC #### [facility] [address] [address] [address] STROKE HEAD WOon 12-28-19 CT STROKE HEAD WO EXAMINATION: CT STROKE [...] by: ANNI NOYOLA Date: 2022-12-27 14:03 Normal [facility] CTA HEAD WO W CONon 12-28-19 CTA HEAD WO W CON EXAMINATION: CTA [...] head and neck. Electronically authenticated by: JACOB VARGAS Date: 2022-12-27 14:55 Normal [facility] Covid-19 PCR (CVDTBH)on 12-15 SARS-CoV-2 (COVID-19) RNA MEETA+probe Ql (Unsp spec) Not detected Normal NOT DETECTED [facility] Comment on above: Result Comment: When [...] for this test is supported by the [employer] and Human Service's declaration that [...] longer be used). Performed By: #### C VDTB #### [facility] [address] [place] [address] Dr. Karina Heath DRUG SCREEN RAPID (URINE)on 12-27-2022 AMP Negative Normal NEGATIVE [facility] Comment on above: Performed By: #### C BC #### [facility] [address] [place] [address] Dr. Karina Heath BAR Negative Normal NEGATIVE [facility] Comment on above: Performed By: #### C BC #### [facility] [address] [place] [address] Dr. Karina Heath BUP Negative Normal NEGATIVE [facility] Comment on above: Performed By: #### C BC #### [facility] [address] [place] [address] Dr. Karina Heath BZO Negative Normal NEGATIVE [facility] Comment on above: Performed By: #### C BC #### [facility] [address] [place] [address] Dr. Karina Heath VALERY Negative Normal NEGATIVE [facility] Comment on above: Performed By: #### C BC #### [facility] [address] [place] [address] Dr. Karina Heath CUT-OFFS SEE BELOW Normal [facility] Comment on above: Result Comment: AMP [...] ng/mL Performed By: #### C BC #### [facility] [address] [place] [address] Dr. Karina Heath DRUG CUT HEADER DRUG CLASS TEST SYSTEM CUT-OFF CONCENTRATIONS ARE FOLLOWS: Normal [facility] Comment on above: Performed By: #### C BC #### [facility] [address] [place] [address] Dr. Karina Heath mAMP Negative Normal NEGATIVE [facility] Comment on above: Performed By: #### C BC #### [facility] [address] [place] [address] Dr. Karina Heath MTD Negative Normal NEGATIVE [facility] Comment on above: Performed By: #### C BC #### [facility] [address] [place] [address] Dr. Karina Heath OPI Negative Normal NEGATIVE [facility] Comment on above: Performed By: #### C BC #### [facility] [address] [place] [address] Dr. Karina Heath OXY Negative Normal NEGATIVE [facility] Comment on above: Performed By: #### C BC #### [facility] [address] [place] [address] Dr. Karina Heath PCP Negative Normal NEGATIVE [facility] Comment on above: Performed By: #### C BC #### [facility] [address] [place] [address] Dr. Karina Heath PPX Negative Normal NEGATIVE [facility] Comment on above: Performed By: #### C BC #### [facility] [address] [place] [address] Dr. Karina Heath TCA Negative Normal NEGATIVE [facility] Comment on above: Performed By: #### C BC #### [facility] [address] [address] [address] Karina Heath THC Negative Normal NEGATIVE [facility] Comment on above: Performed By: #### C BC #### [facility] [address] [place] [address] Dr. Karina Heath ER URINE PROFILEon 3 Bilirubin Ql (U) Negative Normal NEGATIVE [facility] Comment on above: Performed By: #### P OCGLUC #### [facility] [address] [place] [address] Dr. Karina Heath Clarity (U) CLEAR Normal CLEAR [facility] Comment on above: Performed By: #### P OCGLUC #### [facility] [address] [place] [address] Dr. Karina Heath Color (U) LT. YELLOW Normal YELLOW [facility] Comment on above: Performed By: #### P OCGLUC #### [facility] [address] [place] [address] Dr. Karina Heath ERUAHD A micrscopic examination will be performed if indicated. Normal [facility] Comment on above: Performed By: #### P OCGLUC #### [facility] [address] [place] [address] Dr. Karina Heath Glucose Ql (U) >1000 Abnormal NEGATIVE [facility] Comment on above: Performed By: #### P OCGLUC #### [facility] [address] [place] [address] Dr. Karina Heath Hemoglobin Ql (U) TRACE-INTACT Abnormal NEGATIVE [facility] Comment on above: Performed By: #### P OCGLUC #### [facility] [address] [place] [address] Dr. Karina Heath Ketones Ql (U) TRACE Abnormal NEGATIVE [facility] Comment on above: Performed By: #### P OCGLUC #### [facility] [address] [place] [address] Dr. Karina Heath LEUKOCYTES Negative Normal NEGATIVE [facility] Comment on above: Performed By: #### P OCGLUC #### [facility] [address] [address] [address] Karina Heath Nitrite Ql (U) Negative Normal NEGATIVE [facility] Comment on above: Performed By: #### P OCGLUC #### [facility] [address] [address] [address] Karina Heath pH (U) 7.0 [pH] Normal 5-9 [facility] Comment on above: Performed By: #### P OCGLUC #### [facility] [address] [address] [address] Karina Heath Protein (U) [Mass/Vol] 100 mg/dL Abnormal NEGAT RAJAN/ TRACE [facility] Comment on above: Performed By: #### P OCGLUC #### [facility] [address] [place] [address] Dr. Karina Heath SPEC GRAVITY 1.010 Normal 1.005-<=1.02 5 [facility] Comment on above: Performed By: #### P OCGLUC #### [facility] [address] [address] [address] Karina Heath UR MICRO IND INDICATED Normal [facility] Comment on above: Performed By: #### P OCGLUC #### [facility] [address] [address] [address] Karina Heath Urobilinogen Qn (U) 0.2 {Rachana'U}/dL Normal 0.2 - 1. 0 [facility] Comment on above: Performed By: #### P OCGLUC #### [facility] [address] [address] [address] Karina Heath POINT OF CARE GLUCOSEon 12-15 Glucose [Mass/Vol] 233 mg/dL Critically high 74-106 [facility] Comment on above: Performed By: #### P OCGLUC #### [facility] [address] [address] [address] Karina Heath Glucose [Mass/Vol] 199 mg/dL Critically high 74-106 [facility] Comment on above: Performed By: #### P OCGLUC #### [facility] [address] [address] [address] Karina Heath PROF 14(COMP METB)on 023 Albumin [Mass/Vol] 3.4 g/dL Normal 3.4-5.0 [facility] Comment on above: Performed By: #### P OCGLUC #### [facility] [address] [address] [address] Karina Heath Albumin/Globulin [Mass ratio] 1.0 {ratio} Normal [facility] Comment on above: Performed By: #### P OCGLUC #### [facility] [address] [address] [address] Karina Heath ALP [Catalytic activity/Vol] 100 U/L Normal 46-116 [facility] Comment on above: Performed By: #### P OCGLUC #### [facility] [address] [address] [address] Karina Heath ALT [Catalytic activity/Vol] 31 U/L Normal 16-63 [facility] Comment on above: Performed By: #### P OCGLUC #### [facility] [address] [address] [address] Karina Heath Anion gap [Moles/Vol] 10.5 mmol/L Normal [facility] Comment on above: Performed By: #### P OCGLUC #### [facility] [address] [address] [address] Karina Heath AST [Catalytic activity/Vol] 18 U/L Normal 15-37 [facility] Comment on above: Performed By: #### P OCGLUC #### [facility] [address] [address] [address] Karina Heath Bilirubin [Mass/Vol] 0.2 mg/dL Normal 0.2-1.0 [facility] Comment on above: Performed By: #### P OCGLUC #### [facility] [address] [place] [address] Dr. Karina Heath Calcium [Mass/Vol] 9.0 mg/dL Normal 8.5-10.1 [facility] Comment on above: Performed By: #### P OCGLUC #### [facility] [address] [address] [address] Karina Heath Chloride [Moles/Vol] 96 mmol/L Critically low 98-107 [facility] Comment on above: Performed By: #### P OCGLUC #### [facility] [address] [address] [address] Karina Heath CO2 [Moles/Vol] 29.1 mmol/L Normal 21.0-32.0 [facility] Comment on above: Performed By: #### P OCGLUC #### [facility] [address] [address] [address] Karina Heath Creatinine [Mass/Vol] 0.91 mg/dL Normal 0.70-1.30 [facility] Comment on above: Performed By: #### P OCGLUC #### [facility] [address] [address] [address] Karina Heath EGFR-AF GREEK >60 Normal >=60 [facility] Comment on above: Performed By: #### P OCGLUC #### [facility] [address] [address] [address] Karina Heath EGFR-NON AF GREEK >60 Normal >=60 [facility] Comment on above: Performed By: #### P OCGLUC #### [facility] [address] [address] [address] Karina Heath Globulin (S) [Mass/Vol] 3.5 g/dL Normal [facility] Comment on above: Performed By: #### P OCGLUC #### [facility] [address] [address] [address] Karina Heath Glucose [Mass/Vol] 214 mg/dL Critically high 74-106 [facility] Comment on above: Performed By: #### P OCGLUC #### [facility] [address] [address] [address] Karina Heath Potassium [Moles/Vol] 3.6 mmol/L Normal 3.5-5.1 [facility] Comment on above: Performed By: #### P OCGLUC #### [facility] [address] [place] [address] Dr. Karina Heath Protein [Mass/Vol] 6.9 g/dL Normal 6.4-8.2 [facility] Comment on above: Performed By: #### P OCGLUC #### [facility] [address] [address] [address] Karina Heath Sodium [Moles/Vol] 132 mmol/L Critically low 136-145 [facility] Comment on above: Performed By: #### P OCGLUC #### [facility] [address] [place] [address] Dr. Karina Heath Urea nitrogen [Mass/Vol] 27.0 mg/dL Critically high 7.0-18 .0 [facility] Comment on above: Performed By: #### P OCGLUC #### [facility] [address] [place] [address] Dr. Karina Heath Urea nitrogen/Creatinine [Mass ratio] 29.7 mg/mg Normal [facility] Comment on above: Performed By: #### P OCGLUC #### [facility] [address] [place] [address] Dr. Karina Heath PROTIMEon 12-27-2022 INR Coag (PPP) [Relative time] {INR} Normal [facility] Comment on above: Performed By: #### P TT, PT #### [facility] [address] [place] [address] Dr. Karina Heath INR GUIDELINES SEE BELOW Normal [facility] Comment on above: Result Comment: LINDA RED INR: 2.0 - 3.0 CONDITIONS NOT LISTED BELOW 2.5 - 3.5 FOR PROSTHETIC HEART VALVE REPLACEMENT 2.5 - 3.5 RECURRENT THROMBOSIS Performed By: #### P TT, PT #### [facility] [address] [place] [address] Dr. Karina Heath PT Coag (PPP) [Time] 9.8 s Normal 9.0-11.6 [facility] Comment on above: Performed By: #### P TT, PT #### [facility] [address] [place] [address] Dr. Karina Heath PTTon 12-27-2022 aPTT Coag (Bld) [Time] 24.3 s Normal 22.3-36.2 [facility] Comment on above: Performed By: #### P TT, PT #### [facility] [address] [place] [address] Dr. Karina Heath TROPONIN, HIGH SENSITIVITYon 12-27-2022 HSTROP 5.5 pg/mL Normal 4.0-76.1 [facility] Comment on above: Result Comment: CUT- OFF POINTS HAVE BEEN ESTABLISHED BASED ON THE FOURTH UNIVERSAL DEFINITIONS OF MYOCARDIAL INFARCTION. THE UPPER REFERENCE LIMIT (URL) OF TROPONIN, DEFINED THE 99TH PERCENTILE OF cTnI DISTRIBUTION IN A REFERENCE POPULATION, HAS BEEN CONFIRMED THE DECISION THRESHOLD FOR NC DIAGNOSIS. Performed By: #### P OCGLUC #### [facility] [address] [place] [address] Dr. Karina Heath TSHon 12-27-2022 TSH 0.848 uIU/mL Normal 0.358-3.740 [facility] Comment on above: Performed By: #### P OCGLUC #### [facility] [address] [place] [address] Dr. Karina Heath URINE MICROSCOPIC ONLYon BACTERIA NONE SEEN Normal NONE SEEN [facility] Comment on above: Performed By: #### P OCGLUC #### [facility] [address] [place] [address] Dr. Karina Heath Bacteria identified Cx Nom (U) NOT INDICATED Normal [facility] Comment on above: Performed By: #### P OCGLUC #### [facility] [address] [place] [address] Dr. Karina Heath CAST NONE SEEN Normal NONE SEEN [facility] Comment on above: Performed By: #### P OCGLUC #### [facility] [address] [place] [address] Dr. Karina Heath Crystals LM Nom (Urine sed) NONE SEEN Normal NONE SEE N [facility] Comment on above: Performed By: #### P OCGLUC #### [facility] [address] [place] [address] Dr. Karina Heath Epithelial cells LM Ql (Urine sed) NONE SEEN Normal NONE SEEN /RARE [facility] Comment on above: Performed By: #### P OCGLUC #### [facility] [address] [place] [address] Dr. Karina Heath MUCOUS NONE SEEN Normal NONE SEEN [facility] Comment on above: Performed By: #### P OCGLUC #### [facility] [address] [place] [address] Dr. Karina Heath RBC 0-2 Normal 0-2 [facility] Comment on above: Performed By: #### P OCGLUC #### [facility] [address] [place] [address] Dr. Karina Heath WBC NONE SEEN Normal NONE SEEN [facility] Comment on above: Performed By: #### P OCGLUC #### [facility] [address] [place] [address] Dr. Karina Heath XR CHEST 1 Von 12-27-2022 XR CHEST 1 V EXAM: XR CHEST 1 V HISTORY: Aphasia COMPARISON: None. TECHNIQUE: AP upright portable. FINDINGS: Cardiomediastinal silhouette and pulmonary vascularity are within normal limits. Lungs and the costophrenic angles are clear. IMPRESSION: No acute cardiopulmonary disease. Electronically authenticated by: ANNI NOYOLA Date: 2022-12-27 14:03 Normal [facility] ACID FAST SMEAR AND CXon Acid Fast Culture Negative Normal [facility] Comment on above: Result Comment: No a martin fast bacilli isolated after 6 weeks. Performed By: #### A FB #### [facility] [address] [place] [address] Dr. Karina Heath Acid Fast Smear Negative Normal [facility] Comment on above: Performed By: #### A FB #### [facility] [address] [place] [address] Dr. Karina Heath AFB Specimen Processing Direct Inoculation Normal [facility] Comment on above: Performed By: #### A FB #### [facility] [address] [place] [address] Dr. Karina Heath FUNGAL CULTUREon 11-12-2022 Fungus (Mycology) Culture Final report Normal [facility] Comment on above: Performed By: #### C BC #### [facility] [address] [place] [address] Dr. Karina Heath Fungus Stain Final report Normal [facility] Comment on above: Performed By: #### C BC #### [facility] [address] [place] [address] Dr. Karina Heath Result 1 Comment Normal [facility] Comment on above: Result Comment: MYNOR/ Calcofluor preparation: no fungus observed. Performed By: #### C BC #### [facility] [address] [place] [address] Dr. Karina Heath Result Comment: No y [...] F Trimethoprim/Sulfa methoxazole <=10 S F Normal [facility] Comment on above: Performed By: #### P OCGLUC #### [facility] [address] [place] [address] Dr. Karina Heath CBC AUTO DIFFon 10-15-2022 BASO # 0.0 103/ul Normal 0.0-0.1 [facility] Comment on above: Performed By: #### C BC #### [facility] [address] [place] [address] Dr. Karina Heath Basophils/100 WBC (Bld) 0.5 % Normal 0.2-2.0 T [facility] Comment on above: Performed By: #### C BC #### [facility] [address] [place] [address] Dr. Karina Heath EO # 0.1 103/ul Normal 0.0-0.[address] [facility] Comment on above: Performed By: #### C BC #### [facility] [address] [place] [address] Dr. Karina Heath Eosinophils/100 WBC (Bld) 1.5 % Normal 0.9-7.[address] [facility] Comment on above: Performed By: #### C BC #### [facility] [address] [place] [address] Dr. Karina Heath Erythrocyte distribution width (RBC) [Ratio] 12.4 % Normal 11.0-15.0 [facility] Comment on above: Performed By: #### C BC #### [facility] [address] [place] [address] Dr. Karina Heath Hematocrit (Bld) [Volume fraction] 33.1 % Critically low 42.0-54.0 [facility] Comment on above: Performed By: #### C BC #### [facility] [address] [place] [address] Dr. Karina Heath Hemoglobin (Bld) [Mass/Vol] 11.0 g/dL Critically low 14.0 -18.0 [facility] Comment on above: Performed By: #### C BC #### [facility] [address] [place] [address] Dr. Karina Heath IG # 0.03 10e3/ul Normal 0.00-0.[address] [facility] Comment on above: Performed By: #### C BC #### [facility] [address] [place] [address] Dr. Karina Heath IG % 0.5 % Normal 0.0-0.[address] [facility] Comment on above: Performed By: #### C BC #### [facility] [address] [place] [address] Dr. Karina Heath LYMPH # 1.2 103/ul Normal 1.2-3.[address] [facility] Comment on above: Performed By: #### C BC #### [facility] [address] [place] [address] Dr. Karina Heath Lymphocytes/100 WBC (Bld) 20.0 % Critically low 20.5-6 0.0 [facility] Comment on above: Performed By: #### C BC #### [facility] [address] [place] [address] Dr. Karina Heath MANUAL DIFF REQ NO Normal [facility] Comment on above: Performed By: #### C BC #### [facility] [address] [place] [address] Dr. Karina Heath MCH (RBC) [Entitic mass] 28.6 pg Normal 25.9-34.0 [facility] Comment on above: Performed By: #### C BC #### [facility] [address] [place] [address] Dr. Karina Heath MCHC (RBC) [Mass/Vol] 33.2 g/dL Normal 29.9-35.2 [facility] Comment on above: Performed By: #### C BC #### [facility] [address] [place] [address] Dr. Karina Heath MCV (RBC) [Entitic vol] 86.0 fL Normal 80.0-94.0 [facility] Comment on above: Performed By: #### C BC #### [facility] [address] [place] [address] Dr. Karina Heath MONO # 0.5 103/ul Normal 0.3-0.8 [facility] Comment on above: Performed By: #### C BC #### [facility] [address] [place] [address] Dr. Karina Heath Monocytes/100 WBC (Bld) 9.1 % Normal 1.7-12.0 [facility] Comment on above: Performed By: #### C BC #### [facility] [address] [place] [address] Dr. Karina Heath NEUT # 4.0 103/ul Normal 1.4-6.5 [facility] Comment on above: Performed By: #### C BC #### [facility] [address] [place] [address] Dr. Karina Heath Neutrophils/100 WBC (Bld) 68.4 % Normal 43.0-75.0 [facility] Comment on above: Performed By: #### C BC #### [facility] [address] [address] [address] Karina Heath Platelet mean volume (Bld) [Entitic vol] 9.2 fL Critically low 9.5-13.5 [facility] Comment on above: Performed By: #### C BC #### [facility] [address] [address] [address] Karina Heath PLT 214 103/ul Normal 150-450 [facility] Comment on above: Performed By: #### C BC #### [facility] [address] [address] [address] Karina Heath RBC 3.85 106/ul Critically low 4.70-6.10 [facility] Comment on above: Performed By: #### C BC #### [facility] [address] [address] [address] Karina Heath WBC 5.8 103/ul Normal 4.0-11.[address] [facility] Comment on above: Performed By: #### C BC #### [facility] [address] [address] [address] Karina Heath CULTURE WOUNDon 10-15-2022 CULTURE [...] F Trimethoprim/Sulfa methoxazole <=10 S F Normal [facility] Comment on above: Performed By: #### W OUNDCX #### [facility] [address] [place] [address] Dr. Karina Heath POINT OF CARE GLUCOSEon 09-18 Glucose [Mass/Vol] 353 mg/dL Critically high 74-106 [facility] Comment on above: Performed By: #### C BC #### [facility] [address] [place] [address] Dr. Karina Heath Glucose [Mass/Vol] 363 mg/dL Critically high 74-106 [facility] Comment on above: Performed By: #### C BC #### [facility] [address] [place] [address] Dr. Karina Heath PROF CHEM 8 (BAS METB)on Anion gap [Moles/Vol] 12.0 mmol/L Normal [facility] Comment on above: Performed By: #### C VDTBH #### [facility] [address] [place] [address] Dr. Karina Heath Calcium [Mass/Vol] 8.4 mg/dL Critically low 8.5-10.1 [facility] Comment on above: Performed By: #### C VDTBH #### [facility] [address] [place] [address] Dr. Karina Heath Chloride [Moles/Vol] 98 mmol/L Normal 98-107 [facility] Comment on above: Performed By: #### C VDTBH #### [facility] [address] [place] [address] Dr. Karina Heath CO2 [Moles/Vol] 27.2 mmol/L Normal 21.0-32.0 [facility] Comment on above: Performed By: #### C VDTBH #### [facility] [address] [place] [address] Dr. Karina Heath Creatinine [Mass/Vol] 1.07 mg/dL Normal 0.70-1.30 [facility] Comment on above: Performed By: #### C VDTBH #### [facility] [address] [place] [address] Dr. Karina Heath EGFR-AF GREEK >60 Normal >=60 [facility] Comment on above: Performed By: #### C VDTBH #### [facility] [address] [place] [address] Dr. Karina Heath EGFR-NON AF GREEK >60 Normal >=60 [facility] Comment on above: Performed By: #### C VDTBH #### [facility] [address] [place] [address] Dr. Karina Heath Glucose [Mass/Vol] 355 mg/dL Critically high 74-106 T [facility] Comment on above: Performed By: #### C VDTBH #### [facility] [address] [place] [address] Dr. Karina Heath Potassium [Moles/Vol] 4.2 mmol/L Normal 3.5-5.1 [facility] Comment on above: Performed By: #### C VDTBH #### [facility] [address] [place] [address] Dr. Karina Heath Sodium [Moles/Vol] 133 mmol/L Critically low 136-145 Th [facility] Comment on above: Performed By: #### C VDTBH #### [facility] [address] [place] [address] Dr. Karina Heath Urea nitrogen [Mass/Vol] 17.0 mg/dL Normal 7.0-18.0 [facility] Comment on above: Performed By: #### C VDTBH #### [facility] [address] [place] [address] Dr. Karina Heath Urea nitrogen/Creatinine [Mass ratio] 15.9 mg/mg Normal [facility] Comment on above: Performed By: #### C VDTBH #### [facility] [address] [place] [address] Dr. Karina Heath PTTon 10-15-2022 aPTT Coag (Bld) [Time] 27.3 s Normal 22.3-36.2 [facility] Comment on above: Performed By: #### C VDTBH #### [facility] [address] [place] [address] Dr. Karina Heath CBC AUTO DIFFon 10-14-2022 BASO # 0.0 103/ul Normal 0.0-0.1 [facility] Comment on above: Performed By: #### C BC #### [facility] [address] [place] [address] Dr. Karina Heath Basophils/100 WBC (Bld) 0.4 % Normal 0.2-2.0 [facility] Comment on above: Performed By: #### C BC #### [facility] [address] [place] [address] Dr. Karina Heath EO # 0.1 103/ul Normal 0.0-0.7 [facility] Comment on above: Performed By: #### C BC #### [facility] [address] [place] [address] Dr. Karina Heath Eosinophils/100 WBC (Bld) 1.5 % Normal 0.9-7.0 [facility] Comment on above: Performed By: #### C BC #### [facility] [address] [place] [address] Dr. Karina Heath Erythrocyte distribution width (RBC) [Ratio] 12.6 % Normal 11.0-15.0 [facility] Comment on above: Performed By: #### C BC #### [facility] [address] [place] [address] Dr. Karina Heath Hematocrit (Bld) [Volume fraction] 31.3 % Critically low 42.0-54.0 [facility] Comment on above: Performed By: #### C BC #### [facility] [address] [place] [address] Dr. Karina Heath Hemoglobin (Bld) [Mass/Vol] 10.8 g/dL Critically low 14.0 -18.0 [facility] Comment on above: Performed By: #### C BC #### [facility] [address] [place] [address] Dr. Karina Heath IG # 0.05 10e3/ul Critically high 0.00-0.03 [facility] Comment on above: Performed By: #### C BC #### [facility] [address] [place] [address] Dr. Karina Heath IG % 0.7 % Critically high 0.0-0.5 [facility] Comment on above: Performed By: #### C BC #### [facility] [address] [place] [address] Dr. Karina Heath LYMPH # 1.4 103/ul Normal 1.2-3.8 [facility] Comment on above: Performed By: #### C BC #### [facility] [address] [place] [address] Dr. Karina Heath Lymphocytes/100 WBC (Bld) 20.8 % Normal 20.5-60.0 [facility] Comment on above: Performed By: #### C BC #### [facility] [address] [place] [address] Dr. Karina Heath MANUAL DIFF REQ NO Normal [facility] Comment on above: Performed By: #### C BC #### [facility] [address] [place] [address] Dr. Karina Heath MCH (RBC) [Entitic mass] 29.4 pg Normal 25.9-34.0 [facility] Comment on above: Performed By: #### C BC #### [facility] [address] [place] [address] Dr. Karina Heath MCHC (RBC) [Mass/Vol] 34.5 g/dL Normal 29.9-35.2 [facility] Comment on above: Performed By: #### C BC #### [facility] [address] [place] [address] Dr. Karina Heath MCV (RBC) [Entitic vol] 85.3 fL Normal 80.0-94.0 [facility] Comment on above: Performed By: #### C BC #### [facility] [address] [place] [address] Dr. Karina Heath MONO # 0.7 103/ul Normal 0.3-0.8 [facility] Comment on above: Performed By: #### C BC #### [facility] [address] [place] [address] Dr. Karina Heath Monocytes/100 WBC (Bld) 10.3 % Normal 1.7-12.0 T [facility] Comment on above: Performed By: #### C BC #### [facility] [address] [place] [address] Dr. Karina Heath NEUT # 4.5 103/ul Normal 1.4-6.5 [facility] Comment on above: Performed By: #### C BC #### [facility] [address] [place] [address] Dr. Karina Heath Neutrophils/100 WBC (Bld) 66.3 % Normal 43.0-75.0 [facility] Comment on above: Performed By: #### C BC #### [facility] [address] [place] [address] Dr. Karina Heath Platelet mean volume (Bld) [Entitic vol] 9.2 fL Critically low 9.5-13.5 [facility] Comment on above: Performed By: #### C BC #### [facility] [address] [place] [address] Dr. Karina Heath PLT 227 103/ul Normal 150-450 [facility] Comment on above: Performed By: #### C BC #### [facility] [address] [place] [address] Dr. Karina Heath RBC 3.67 106/ul Critically low 4.70-6.10 [facility] Comment on above: Performed By: #### C BC #### [facility] [address] [place] [address] Dr. Karina Heath WBC 6.7 103/ul Normal 4.0-11.0 [facility] Comment on above: Performed By: #### C BC #### [facility] [address] [place] [address] Dr. Karina Heath CULTURE ANAEROBICon 10-14-20 22 CULTURE ANAEROBIC Culture Observations: NO GROWTH OF ANAEROBES AT 72 HOURS. Normal [facility] Comment on above: Performed By: #### A NACX #### [facility] [address] [place] [address] Dr. Karina Heath GRAM STAINon 10-14-2022 DIPHTHEROIDS Normal [facility] Comment on above: Performed By: #### P OCGLUC #### [facility] [address] [address] [address] Karina Heath EPITHELIALS Normal [facility] Comment on above: Performed By: #### P OCGLUC #### [facility] [address] [address] [address] Karina Heath FUNGAL ELEMENTS Normal [facility] Comment on above: Performed By: #### P OCGLUC #### [facility] [address] [address] [address] Karina Heath GRAM NEG BACILLI Normal [facility] Comment on above: Performed By: #### P OCGLUC #### [facility] [address] [address] [address] Karina CHEN NEG DIPPLOCOCCI Normal [facility] Comment on above: Performed By: #### P OCGLUC #### [facility] [address] [address] [address] Karina CHEN POS BACILLI [facility] Comment on above: Performed By: #### P OCGLUC #### [facility] [address] [address] [address] Karina Heath GRAM POSITIVE COCCI FEW Normal [facility] Comment on above: Performed By: #### P OCGLUC #### [facility] [address] [address] [address] Karina Heath GRAM STAIN SOURCE Rt Leg Abscess Normal [facility] Comment on above: Performed By: #### P OCGLUC #### [facility] [address] [address] [address] Karina Heath GS_DIPTH [facility] Comment on above: Performed By: #### P OCGLUC #### [facility] [address] [address] [address] Karina Heath WBC RARE Normal [facility] Comment on above: Performed By: #### P OCGLUC #### [facility] [address] [address] [address] Karina Heath POINT OF CARE GLUCOSEon 09-17 Glucose [Mass/Vol] 282 mg/dL Critically high 74-106 [facility] Comment on above: Performed By: #### C BC #### [facility] [address] [address] [address] Karina Heath Glucose [Mass/Vol] 281 mg/dL Critically high -106 [facility] Comment on above: Performed By: #### P OCGLUC #### [facility] [address] [address] [address] Karina Heath Glucose [Mass/Vol] 157 mg/dL Critically high -106 [facility] Comment on above: Performed By: #### P OCGLUC #### [facility] [address] [address] [address] Karina Heath Glucose [Mass/Vol] 180 mg/dL Critically high -106 [facility] Comment on above: Performed By: #### P OCGLUC #### [facility] [address] [address] [address] Karina Heath PROF CHEM 8 (BAS METB)on Anion gap [Moles/Vol] 10.4 mmol/L Normal [facility] Comment on above: Performed By: #### C BC #### [facility] [address] [place] [address] Dr. Karina Heath Calcium [Mass/Vol] 8.4 mg/dL Critically low 8.5-10.1 [facility] Comment on above: Performed By: #### C BC #### [facility] [address] [place] [address] Dr. Karina Heath Chloride [Moles/Vol] 99 mmol/L Normal 98-107 [facility] Comment on above: Performed By: #### C BC #### [facility] [address] [address] [address] Karina Heath CO2 [Moles/Vol] 29.3 mmol/L Normal 21.0-32.0 [facility] Comment on above: Performed By: #### C BC #### [facility] [address] [place] [address] Dr. Karina Heath Creatinine [Mass/Vol] 1.01 mg/dL Normal 0.70-1.30 [facility] Comment on above: Performed By: #### C BC #### [facility] [address] [place] [address] Dr. Karina Heath EGFR-AF GREEK >60 Normal >=60 [facility] Comment on above: Performed By: #### C BC #### [facility] [address] [place] [address] Dr. Karina Heath EGFR-NON AF GREEK >60 Normal >=60 [facility] Comment on above: Performed By: #### C BC #### [facility] [address] [place] [address] Dr. Karina Heath Glucose [Mass/Vol] 394 mg/dL Critically high 74-106 T [facility] Comment on above: Performed By: #### C BC #### [facility] [address] [place] [address] Dr. Karina Heath Potassium [Moles/Vol] 3.7 mmol/L Normal 3.5-5.1 [facility] Comment on above: Performed By: #### C BC #### [facility] [address] [place] [address] Dr. Karina Heath Sodium [Moles/Vol] 135 mmol/L Critically low 136-145 Th [facility] Comment on above: Performed By: #### C BC #### [facility] [address] [place] [address] Dr. Karina Heath Urea nitrogen [Mass/Vol] 13.0 mg/dL Normal 7.0-18.0 [facility] Comment on above: Performed By: #### C BC #### [facility] [address] [place] [address] Dr. Karina Heath Urea nitrogen/Creatinine [Mass ratio] 12.9 mg/mg Normal [facility] Comment on above: Performed By: #### C BC #### [facility] [address] [place] [address] Dr. Karina Heath PTTon 10-14-2022 aPTT Coag (Bld) [Time] 26.5 s Normal 22.3-36.[address] [facility] Comment on above: Performed By: #### P OCGLUC #### [facility] [address] [place] [address] Dr. Karina Heath CBC AUTO DIFFon 10-13-2022 BASO # 0.1 103/ul Normal 0.0-0.1 [facility] Comment on above: Performed By: #### C BC #### [facility] [address] [place] [address] Dr. Karina Heath Basophils/100 WBC (Bld) 0.8 % Normal 0.2-2.0 [facility] Comment on above: Performed By: #### C BC #### [facility] [address] [place] [address] Dr. Karina Heath EO # 0.1 103/ul Normal 0.0-0.7 [facility] Comment on above: Performed By: #### C BC #### [facility] [address] [place] [address] Dr. Karina Heath Eosinophils/100 WBC (Bld) 1.8 % Normal 0.9-7.0 [facility] Comment on above: Performed By: #### C BC #### [facility] [address] [place] [address] Dr. Karina Heath Erythrocyte distribution width (RBC) [Ratio] 12.3 % Normal 11.0-15.0 [facility] Comment on above: Performed By: #### C BC #### [facility] [address] [place] [address] Dr. Karina Heath Hematocrit (Bld) [Volume fraction] 33.7 % Critically low 42.0-54.0 [facility] Comment on above: Performed By: #### C BC #### [facility] [address] [place] [address] Dr. Karina Heath Hemoglobin (Bld) [Mass/Vol] 11.8 g/dL Critically low 14.0 -18.0 [facility] Comment on above: Performed By: #### C BC #### [facility] [address] [place] [address] Dr. Karina Heath IG # 0.05 10e3/ul Critically high 0.00-0.03 [facility] Comment on above: Performed By: #### C BC #### [facility] [address] [place] [address] Dr. Karina Heath IG % 0.8 % Critically high 0.0-0.5 [facility] Comment on above: Performed By: #### C BC #### [facility] [address] [place] [address] Dr. Karina Heath LYMPH # 1.0 103/ul Critically low 1.2-3.8 [facility] Comment on above: Performed By: #### C BC #### [facility] [address] [place] [address] Dr. Karina Heath Lymphocytes/100 WBC (Bld) 16.4 % Critically low 20.5-6 0.0 [facility] Comment on above: Performed By: #### C BC #### [facility] [address] [place] [address] Dr. Karina Heath MANUAL DIFF REQ NO Normal [facility] Comment on above: Performed By: #### C BC #### [facility] [address] [place] [address] Dr. Karina Heath MCH (RBC) [Entitic mass] 28.9 pg Normal 25.9-34.0 [facility] Comment on above: Performed By: #### C BC #### [facility] [address] [place] [address] Dr. Karina Heath MCHC (RBC) [Mass/Vol] 35.0 g/dL Normal 29.9-35.2 [facility] Comment on above: Performed By: #### C BC #### [facility] [address] [place] [address] Dr. Karina Heath MCV (RBC) [Entitic vol] 82.6 fL Normal 80.0-94.0 [facility] Comment on above: Performed By: #### C BC #### [facility] [address] [place] [address] Dr. Karina Heath MONO # 0.7 103/ul Normal 0.3-0.8 [facility] Comment on above: Performed By: #### C BC #### [facility] [address] [place] [address] Dr. Karina Heath Monocytes/100 WBC (Bld) 10.6 % Normal 1.7-12.0 [facility] Comment on above: Performed By: #### C BC #### [facility] [address] [place] [address] Dr. Karina Heath NEUT # 4.3 103/ul Normal 1.4-6.5 [facility] Comment on above: Performed By: #### C BC #### [facility] [address] [place] [address] Dr. Karina Heath Neutrophils/100 WBC (Bld) 69.6 % Normal 43.0-75.0 [facility] Comment on above: Performed By: #### C BC #### [facility] [address] [place] [address] Dr. Karina Heath Platelet mean volume (Bld) [Entitic vol] 9.0 fL Critically low 9.5-13.5 [facility] Comment on above: Performed By: #### C BC #### [facility] [address] [place] [address] Dr. Karina Heath PLT 257 103/ul Normal 150-[address] [facility] Comment on above: Performed By: #### C BC #### [facility] [address] [place] [address] Dr. Karina Heath RBC 4.08 106/ul Critically low 4.70-6.10 [facility] Comment on above: Performed By: #### C BC #### [facility] [address] [place] [address] Dr. Karina Heath WBC 6.1 103/ul Normal 4.0-11.0 [facility] Comment on above: Performed By: #### C BC #### [facility] [address] [place] [address] Dr. Karina Heath CULTURE BLOODon 10-13-2022 Microscopic examination of blood, culture Culture Observations: NO GROWTH AT 5 DAYS. Normal [facility] Comment on above: Performed By: #### P OCGLUC #### [facility] [address] [place] [address] Dr. Karina Heath Microscopic examination of blood, culture Culture Observations: NO GROWTH AT 5 DAYS. Normal [facility] Comment on above: Performed By: #### P OCGLUC #### [facility] [address] [place] [address] Dr. Karina Heath Covid-19 PCR ([facility])on 09-17 SARS-CoV-2 (COVID-19) RNA MEETA+probe Ql (Unsp spec) Not detected Normal NOT DETECTED [facility] Comment on above: Result Comment: When diagnostic [...] for this test is supported by the [employer] Forms Developer of Health and Human Service's declaration that [...] used). Performed By: #### P OCGLUC #### [facility] [address] [place] [address] Dr. Karina Heath POINT OF CARE GLUCOSEon 09-17 Glucose [Mass/Vol] 281 mg/dL Critically high 74-106 T [facility] Comment on above: Performed By: #### P OCGLUC #### [facility] [address] [place] [address] Dr. Karina Heath GI PANEL (PCR)on 09-24-2022 Adenovirus F 40/41 Not detected Normal NOT DETECTED [facility] Comment on above: Performed By: #### C BC #### [facility] [address] [place] [address] Dr. Karina Heath Astrovirus Not detected Normal NOT DETECTED [facility] Comment on above: Performed By: #### C BC #### [facility] [address] [place] [address] Dr. Karina Samuel. Diff toxin A/B Not detected Normal NOT DETECTED [facility] Comment on above: Performed By: #### C BC #### [facility] [address] [place] [address] Dr. Karina Heath Campylobacter Not detected Normal NOT DETECTED [facility] Comment on above: Performed By: #### C BC #### [facility] [address] [place] [address] Dr. Karina Heath Cryptosporidium Not detected Normal NOT DETECTED [facility] Comment on above: Performed By: #### C BC #### [facility] [address] [place] [address] Dr. Karina Heath Cyclos. Cayetanensis Not detected Normal NOT DETECTED [facility] Comment on above: Performed By: #### C BC #### [facility] [address] [place] [address] Dr. Karina Heath E. Coli O157 Not Applicable Normal Not Applicable [facility] Comment on above: Performed By: #### C BC #### [facility] [address] [place] [address] Dr. Karina Heath E. histolytica Not detected Normal NOT DETECTED [facility] Comment on above: Performed By: #### C BC #### [facility] [address] [place] [address] Dr. Karina Heath EAEC Not detected Normal NOT DETECTED [facility] Comment on above: Performed By: #### C BC #### [facility] [address] [place] [address] Dr. Karina Heath EIEC Not detected Normal NOT DETECTED [facility] Comment on above: Performed By: #### C BC #### [facility] [address] [place] [address] Dr. Karina Heath EPEC Not detected Normal NOT DETECTED [facility] Comment on above: Performed By: #### C BC #### [facility] [address] [address] [address] Karina Heath ETEC Not detected Normal NOT DETECTED [facility] Comment on above: Performed By: #### C BC #### [facility] [address] [address] [address] Karina Heath G. Lamblia Not detected Normal NOT DETECTED [facility] Comment on above: Performed By: #### C BC #### [facility] [address] [address] [address] Karina REDDY CONTROLS PASSED Normal [facility] Comment on above: Performed By: #### C BC #### [facility] [address] [place] [address] Dr. Karina FITZPATRICK HEADER GI PANEL BACTERIA Normal [facility] Comment on above: Performed By: #### C BC #### [facility] [address] [place] [address] Dr. Karina MARTIN ECOLI GI PANEL DIARRHEAGENIC E.COLI / SHIGELLA Normal [facility] Comment on above: Performed By: #### C BC #### [facility] [address] [place] [address] Dr. Karina MARTIN INFO SEE BELOW [facility] Comment on above: Result Comment: EAEC - Enteroaggregative E. Coli EPEC- Enteropathogenic E. Coli ETEC- Enterotoxigenic E. Coli lt/st STEC- Shigella-like toxin-producing E. Coli stx1/stx2 EIEC- Shigella/Enteroinvasive E. Coli Performed By: #### C BC #### [facility] [address] [place] [address] Dr. Karina MARTIN PARASITES GI PANEL PARASITES Normal [facility] Comment on above: Performed By: #### C BC #### [facility] [address] [address] [address] Karina MARTIN VIRUS GI PANEL VIRUSES Normal [facility] Comment on above: Performed By: #### C BC #### [facility] [address] [place] [address] Dr. Karina Heath Norovirus GI/GII Not detected Normal NOT DETECTED [facility] Comment on above: Performed By: #### C BC #### [facility] [address] [address] [address] Karina Heath P. Shigelloides Not detected Normal NOT DETECTED [facility] Comment on above: Performed By: #### C BC #### [facility] [address] [place] [address] Dr. Karina Heath Rotavirus A Not detected Normal NOT DETECTED [facility] Comment on above: Performed By: #### C BC #### [facility] [address] [place] [address] Dr. Karina Heath Salmonella Not detected Normal NOT DETECTED [facility] Comment on above: Performed By: #### C BC #### [facility] [address] [place] [address] Dr. Karina Heath Sapovirus Not detected Normal NOT DETECTED [facility] Comment on above: Performed By: #### C BC #### [facility] [address] [place] [address] Dr. Karina Heath STEC Detected Critically abnormal NOT DETECTED [facility] Comment on above: Performed By: #### C BC #### [facility] [address] [place] [address] Dr. Karina Heath Vibrio Not detected Normal NOT DETECTED [facility] Comment on above: Performed By: #### C BC #### [facility] [address] [place] [address] Dr. Karina Heath Vibrio Cholera Not detected Normal NOT DETECTED [facility] Comment on above: Performed By: #### C BC #### [facility] [address] [place] [address] Dr. Karina Heath Y. Enterocolitica Not detected Normal NOT DETECTED [facility] Comment on above: Performed By: #### C BC #### [facility] [address] [place] [address] Dr. Karina Heath Covid-19 PCR (CVDTB)on 05-17 SARS-CoV-2 (COVID-19) RNA MEETA+probe Ql (Unsp spec) Detected Critically abnormal NOT DETECTED [facility] Comment on above: Result Comment: This test is not yet approved or cleared by the [place] FDA. When there are no FDA-approved or cleared tests available, and other criteria are met, FDA can make tests available under an emergency access mechanism called an Emergency Use Authorization (EUA). The EUA for this test is supported by the [employer] Forms Developer of Health and Human Service's declaration that [...] used). Performed By: #### P OCGLUC #### [facility] [address] [place] [address] Dr. Karina Heath CAROTID ART BILon 022 [...] by: RAMIRO BURNETT Date: 2022-04-28 18:57 Normal [facility] Basic Metabolic Panel w/ Ref jose to MGon 04-19-2022 Anion gap [Moles/Vol] 13 mmol/L 9 - 17 mmol/L [facility] Calcium [Mass/Vol] 9.1 mg/dL 8.6 - 10. 4 mg/dL [facility] Chloride [Moles/Vol] 97 mmol/L Low 98 - 10 7 mmol/L [facility] CO2 [Moles/Vol] 23 mmol/L 20 - 31 mmol/L [facility] Creatinine [Mass/Vol] 1.46 mg/dL High 0.70 - 1.20 mg/dL [facility] GFR >60 >60 mL/min [facility] GFR Non- 52 mL/min Low >60 [facility] Glucose [Mass/Vol] 154 mg/dL High 70 - 99 mg/dL [facility] Interpretation and review of laboratory results Abnormal [facility] Potassium [Moles/Vol] 4.0 mmol/L 3.7 - 5.3 mmol/L [facility] Sodium [Moles/Vol] 133 mmol/L Low 135 - 144 mmol/L [facility] Urea nitrogen (BldV) [Mass/Vol] 39 mg/dL High 6 - 20 mg/dL [facility] Urea nitrogen/Creatinine (Bld) [Mass ratio] 27 High [facility] CBC with Auto Differentialon 04-19-2022 Absolute Eos # 0.[address] [place] [facility] Absolute Immature Granulocyte 0.04 [facility] Absolute Lymph # 1.66 [facility] Absolute [place] # 0.72 [facility] Basophils (Bld) [#/Vol] 0.05 10*3/uL [facility] Basophils/100 WBC (Bld) 1 % 0 - 2 % B [facility] Eosinophils/100 WBC (Bld) 1 % 1 - 4 % [facility] Hematocrit (Bld) [Volume fraction] 45.8 % 40.7 - 50.3 % [facility] Hemoglobin (Bld) [Mass/Vol] 15.2 g/dL 13.0 - 17.0 g/dL [facility] Immature granulocytes/100 WBC (Bld) 0 % 0 [facility] Interpretation and review of laboratory results Abnormal [facility] Lymphocytes/100 WBC (Bld) 16 % Low 24 - 43 % [facility] MCH (RBC) [Entitic mass] 28.1 pg 25. 2 - 33.5 pg [facility] MCHC (RBC) [Mass/Vol] 33.2 g/dL 28.4 - 34.8 g/dL [facility] MCV (RBC) [Entitic vol] 84.8 fL 82.6 - 102.9 fL [facility] Monocytes/100 WBC (Bld) 7 % 3 - 12 % B ON [facility] NRBC Automated 0.0 0.0 per 100 WBC [facility] Platelet distribution width (Bld) [Ratio] 13.4 % 11.8 - 14.4 % [facility] Platelet mean volume (Bld) [Entitic vol] 9.2 fL 8.1 - 13.5 fL [facility] Platelets (Bld) [#/Vol] 214 10*3/uL [facility] RBC (Bld) [#/Vol] 5.40 10*6/uL 4.21 - 5.7 7 m/uL [facility] Segmented neutrophils/100 WBC (Bld) 75 % High 36 - 65 % [facility] Segs Absolute 7.72 [facility] WBC (Bld) [#/Vol] 10.3 10*3/uL [facility] CT Head WO Contraston 2021 No acute intracranial abnormality. [facility] CONSOLIDATED EXAMINATION: CT OF THE HEAD [...] is intact. Extracranial soft tissues are unremarkable. [facility] Ajay Doherty MD - 04/19/2022 EXAMINATION: CT OF THE [...] are unremarkable. IMPRESSION: No acute intracranial abnormality. [place] Phone: Radiology Study observation (narrative) [place] Phone: CT Head WO ContrastOrdered B y: Ajya Aggarwal on 04-19-2022 [place] Phone: Laboratory - Chemistry and C hemistry - challengeon 04-19-2022 GFR/1.73 sq M.predicted MDRD (S/P/Bld) [Vol rate/Area] [facility] Comment on above: Average GFR for 40-4 9 years old: 99 mL/min/1.73sq m Chronic Kidney Disease: <60 mL/min/1.73sq m Kidney failure: <15 mL/min/1.73sq m eGFR calculated using average adult body mass. Additional eGFR calculator available at: http://www.Active Scaler/multiple_crcl_2012.htm Stage 1: Some kidney damage normal GFR Stage 2: Mild kidney damage GFR 60-89 Stage 3: Moderate kidney damage GFR 30-59 Stage 4: Severe kidney damage GFR 15-29 Stage 5: Severe kidney damage GFR <15 ESRD - chronic treatment by dialysis or transplant Protime-INRon 04-19-2022 INR Coag (Bld) [Relative time] 1.0 {INR} [facility] Comment on above: Non-therapeutic Range: INR = 0.9-1.2 Therapeutic Range: Moderate Anticoagulant Intensity: INR = 2.0-3.0 High Anticoagulant Intensity: INR = 2.5-3.5 PT Coag (PPP) [Time] 13.4 s [facility] Troponinon 04-19-2022 Troponin, High Sensitivity 18 ng/L 0 - 22 ng /L [facility] Comment on above: High Sensitivity Troponin values cannot be compared with other Troponin methodologies. Patients with high levels of Biotin oral intake (i.e >5mg/day) may have falsely decreased Troponin levels. Samples collected within 8 hours of biotin intake may require additional information for diagnosis. [facility] CBC with Auto Differentialon 04-04-2022 Absolute Eos # 0.08 [place] [facility] [employer] Absolute Immature Granulocyte <0.03 [facility] Absolute Lymph # 1.53 [facility] SEC[facility] URS [facility] Absolute [place] # 0.58 [facility] RS [facility] Basophils (Bld) [#/Vol] 0.05 10*3/uL [facility] Basophils/100 WBC (Bld) 1 % 0 - 2 % B ON [facility] Eosinophils/100 WBC (Bld) 1 % 1 - 4 % [facility] Hematocrit (Bld) [Volume fraction] 44.8 % 40.7 - 50.3 % [facility] Hemoglobin (Bld) [Mass/Vol] 15.0 g/dL 13.0 - 17.0 g/dL [facility] Immature granulocytes/100 WBC (Bld) 0 % 0 [facility] Interpretation and review of laboratory results Abnormal [facility] Lymphocytes/100 WBC (Bld) 16 % Low 24 - 43 % [facility] MCH (RBC) [Entitic mass] 27.9 pg 25. 2 - 33.5 pg [facility] MCHC (RBC) [Mass/Vol] 33.5 g/dL 28.4 - 34.8 g/dL [facility] MCV (RBC) [Entitic vol] 83.4 fL 82.6 - 102.9 fL [facility] Monocytes/100 WBC (Bld) 6 % 3 - 12 % B [facility] NRBC Automated 0.0 0.0 per 100 WBC [facility] Platelet distribution width (Bld) [Ratio] 13.8 % 11.8 - 14.4 % [facility] Platelet mean volume (Bld) [Entitic vol] 10.1 fL 8.1 - 13.5 fL [facility] Platelets (Bld) [#/Vol] 208 10*3/uL [facility] RBC (Bld) [#/Vol] 5.37 10*6/uL 4.21 - 5.7 7 m/uL [facility] Segmented neutrophils/100 WBC (Bld) 76 % High 36 - 65 % [facility] Segs Absolute 7.18 [facility] WBC (Bld) [#/Vol] 9.4 10*3/uL [facility] CT Head WO Contraston 2021 No [...] of the visualized skull or soft tissues. 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 [place] Phone: Radiology Study observation (narrative) [place] Phone: CT Head WO ContrastOrdered B y: Faustino Milan on 04-04-2022 [place] Phone: Comprehensive Metabolic Pane l w/ Reflex to MGon 04-04-2022 Albumin [Mass/Vol] 4.4 g/dL 3.5 - 5.2 g/dL [facility] Albumin/Globulin [Mass ratio] 1.4 {ratio} [facility] ALP (Bld) [Catalytic activity/Vol] 108 U/L 40 - 129 U/L [facility] ALT [Catalytic activity/Vol] 24 U/L 5 - 41 U/L [facility] Anion gap [Moles/Vol] 12 mmol/L 9 - 17 mmol/L [facility] AST [Catalytic activity/Vol] 21 U/L <40 [facility] Bilirubin [Mass/Vol] 0.17 mg/dL Low 0.3 - 1 .2 mg/dL [facility] Calcium [Mass/Vol] 9.6 mg/dL 8.6 - 10. 4 mg/dL [facility] Chloride [Moles/Vol] 98 mmol/L 98 - 10 7 mmol/L [facility] CO2 [Moles/Vol] 24 mmol/L 20 - 31 mmol/L [facility] Creatinine [Mass/Vol] 1.36 mg/dL High 0.70 - 1.20 mg/dL [facility] Free PSA/Total PSA [Mass fraction] 7.5 g/dL 6.4 - 8.3 g/dL [facility] GFR >60 >60 mL/min [facility] GFR Non- 56 mL/min Low >60 [facility] Glucose [Mass/Vol] 270 mg/dL High 70 - 99 mg/dL [facility] Interpretation and review of laboratory results Abnormal [facility] Potassium [Moles/Vol] 4.0 mmol/L 3.7 - 5.3 mmol/L [facility] Sodium [Moles/Vol] 134 mmol/L Low 135 - 144 mmol/L [facility] Urea nitrogen (BldV) [Mass/Vol] 24 mg/dL High 6 - 20 mg/dL [facility] Urea nitrogen/Creatinine (Bld) [Mass ratio] 18 [facility] Glucose, Whole Bloodon 04-04 Glucose [Mass/Vol] 256 mg/dL High 74 - 100 mg/dL [facility] Interpretation and review of laboratory results Abnormal [facility] Laboratory - Chemistry and C hemistry - challengeon 04-04-2022 GFR/1.73 sq M.predicted MDRD (S/P/Bld) [Vol rate/Area] [facility] Comment on above: Average GFR for 40-4 9 years old: 99 mL/min/1.73sq m Chronic Kidney Disease: <60 mL/min/1.73sq m Kidney failure: <15 mL/min/1.73sq m eGFR calculated using average adult body mass. Additional eGFR calculator available at: http://www.Active [employer]/multiple_crcl_2011.htm Stage 1: Some kidney damage normal GFR Stage 2: Mild kidney damage GFR 60-89 Stage 3: Moderate kidney damage GFR 30-59 Stage 4: Severe kidney damage GFR 15-29 Stage 5: Severe kidney damage GFR <15 ESRD - chronic treatment by dialysis or transplant Vital Signs Date Time Vital Sign Value Performing Clinician Faci lity 01-22-2024 15:44-0400 Body temperature 97.81 [degF] Sarmad Daly MD Work Phone: [facility] 01-22-2024 15:44-0400 Diastolic blood pressure 85 mm[Hg] Sarmad Daly MD Work Phone: [facility] 01-22-2024 15:44-0400 Heart rate 70 /min Sarmad Daly MD Work Phone: [facility] 01-22-2024 15:44-0400 Respiratory rate 11 /min Sarmad Daly MD Work Phone: [facility] 01-22-2024 15:44-0400 SaO2% (BldA) [Mass fraction] 98 % Sarmad Daly MD Work Phone: [facility] 01-22-2024 15:44-0400 Systolic blood pressure 138 mm[Hg] Sarmad Daly MD Work Phone: [facility] 01-21-2024 21:40-0400 Body height 177.8 cm [facility]armad [facility]aly MD [facility] 01-21-2024 21:40-0400 Body mass index (BMI) [Ratio] 27.93 kg/m2 Sarmad Daly MD Work Phone: [facility] [employer] 01-21-2024 21:40-0400 Body weight 88.3 kg Sarmad Daly MD Work Phone: [facility] 01-19-2024 01:32-0400 Diastolic blood pressure 82 mm[Hg] Steve Estrada MD Work Phone: [facility] [employer] 01-19-2024 01:32-0400 Heart rate 87 /min Steve Estrada MD Work Phone: [facility] [employer] 01-19-2024 01:32-0400 Respiratory rate 16 /min Steve Estrada MD Work Phone: [facility] [employer] 01-19-2024 01:32-0400 SaO2% (BldA) [Mass fraction] 99 % Steve Estrada MD Work Phone: [facility] 01-19-2024 01:32-0400 Systolic blood pressure 126 mm[Hg] Steve Estrada MD Work Phone: [facility] [employer] 01-19-2024 00:46-0400 Body temperature 98.71 [degF] Steve Estrada MD Work Phone: [facility] [employer] 01-18-2024 23:14-0400 Body height 177.8 cm Steve Estrada MD Work Phone: [facility] [employer] 01-18-2024 23:14-0400 Body mass index (BMI) [Ratio] 27.26 kg/m2 Steve Estrada MD Work Phone: [facility] [employer] 01-18-2024 23:14-0400 Body weight 86.18 kg Steve Estrada MD Work Phone: [facility] 09-24-2023 18:52-0500 Diastolic blood pressure 85 mm[Hg] Reginaldo Beltran MD Work Phone: [facility] 09-24-2023 18:52-0500 Heart rate 98 /min Reginaldo Beltran MD Work Phone: [facility] 09-24-2023 18:52-0500 Respiratory rate 18 /min Reginaldo Beltran MD Work Phone: [facility] 09-24-2023 18:52-0500 SaO2% (BldA) [Mass fraction] 96 % Reginaldo Beltran MD Work Phone: [facility] 09-24-2023 18:52-0500 Systolic blood pressure 140 mm[Hg] Reginaldo Beltran MD Work Phone: [facility] 09-24-2023 17:07-0500 Body temperature 98.91 [degF] Reginaldo Beltran MD Work Phone: [facility] 09-22-2023 12:07-0500 SaO2% (BldA) [Mass fraction] 98.9 % Reginaldo Beltran MD Work Phone: [facility] 09-22-2023 04:00-0500 Body height 182.9 cm Reginaldo Beltran MD Work Phone: [facility] 09-22-2023 04:00-0500 Body mass index (BMI) [Ratio] 25.58 kg/m2 Reginaldo Beltran MD Work Phone: [facility] 09-22-2023 04:00-0500 Body weight 85.55 kg Reginaldo Beltran MD Work Phone: [facility] 09-21-2023 16:54-0500 SaO2% (BldA) [Mass fraction] 99.9 % Reginaldo Beltran MD Work Phone: [facility] 04-20-2022 00:26-0400 SaO2% (BldA) [Mass fraction] 97 % Lulú Bush DO Work Phone: [facility] [employer] 04-20-2022 00:15-0400 Diastolic blood pressure 88 mm[Hg] Lulú Bush DO [facility] Phone[facility] 04-20-2022 00:15-0400 Heart rate 100 /min Lulú Bush DO Work Phone: [facility] 04-20-2022 00:15-0400 Respiratory rate 19 /min Lulú Bush DO Work Phone: [facility] [employer] 04-20-2022 00:15-0400 Systolic blood pressure 145 mm[Hg] Lulú Bush DO Work Phone[facility] 04-19-2022 21:45-0400 Body temperature 96.8 [degF] Lulú Bush DO [facility] Phone[facility] 04-04-2022 23:25-0400 Diastolic blood pressure 106 mm[Hg] Cheng [facility]ira [facility] 04-04-2022 23:25-0400 Systolic blood pressure 198 mm[Hg] Cheng [facility] 04-04-2022 23:15-0400 SaO2% (BldA) [Mass fraction] 94 % Cheng [facility]ira [facility] 04-04-2022 21:58-0400 Body height 177.8 cm Cheng [facility] 04-04-2022 21:58-0400 Body mass index (BMI) [Ratio] 27.26 kg/m2 Cheng [facility] 04-04-2022 21:58-0400 Body temperature 97.2 [degF] Cheng [facility] 04-04-2022 21:58-0400 Body weight 86.18 kg Cheng [facility] 04-04-2022 21:58-0400 Heart rate 84 /min Cheng [facility] 04-04-2022 21:58-0400 Respiratory rate 20 /min [facility] En[facility] Encounter Date Encounter Type Care Provider Facility Start: 02-28-2024 End: 02-29-2024 ambulatory Felix LUKE Facility: [place] Start: 02-28-2024 End: 02-28-2024 Patient encounter procedure Felix LUKE [facility] [place] Start: 01-19-2024 End: 01-22-2024 Evaluation and management of inpatient [facility] Start: 01-19-2024 End: 01-22-2024 Evaluation and management of inpatient Sarmad Daly MD Work Phone: [address] Onc/Med Surg Start: 01-19-2024 End: 01-19-2024 Emergency department patient visit [facility] Start: 01-18-2024 End: 01-19-2024 Emergency department patient visit Steve Estrada MD Work Phone: [facility] ED Comment on above: Hypertensive encepha lopathy (Primary Dx); Hypertensive emergency Start: 10-16-2023 ambulatory [place] Andres Veena [facility] Start: 09-21-2023 End: 09-24-2023 Evaluation and management of inpatient NEUROLOGY CONSULT [facility] Start: 09-21-2023 End: 09-24-2023 Evaluation and management of inpatient Reginaldo Beltran MD Work Phone: [facility] Med Surg Comment on above: Acute respiratory fa ilure Start: 08-12-2023 End: 08-13-2023 ambulatory Jarod Aviles [employer] Facility:[facility] Start: 05-13-2023 End: 05-14-2023 ambulatory Jarod Aviles [employer] Facility:[facility] Start: 02-11-2023 End: 02-12-2023 ambulatory Jarod Aviles [employer] WORK[employer] Facility:[facility] Start: 01-11-2023 End: 01-12-2023 ambulatory JACQUELINE PACHECO Facility: Start: 12-27-2022 End: 12-28-[address] PAULINA [...] DR PAULINA WINTERS . Facility:[facility] Start: 04-19-2022 End: 04-20-2022 Emergency department patient visit Lulú Kiera Bush DO Work Phone: [facility] ED Comment on above: Essential hypertensi on (Primary Dx); Acute headache, unspecified headache type Start: 04-04-2022 End: 04-05-2022 Emergency department patient visit Cheng Lira MD [facility] ED Comment on above: Acute nonintractable headache, unspecified headache type (Primary Dx); Elevated blood pressure reading Start: 03-18-2022 End: 03-19-[address] PAULINA WINTERS . Facility: Procedures Date Procedure Procedure Detail Performing Clinician Start: 01-22-2024 Glucose blood reagent strip Charlotte Gilliland MD Work Phone: Start: 01-22-2024 Mri brain brain stem w/o contrast material Addy Brown DO Work Phone: Start: 01-22-2024 Glucose blood reagent strip Charlotte Gilliland MD Work Phone: Start: 01-22-2024 Glucose blood reagent strip Charlotte Gilliland MD Work Phone: Start: 01-22-2024 Basic metabolic pane l calcium total Gurmeet Gloria MD Work Phone: Start: 01-21-2024 Glucose blood reagent strip Charlotte Gilliland MD Work Phone: Start: 01-21-2024 Glucose blood reagent strip Sarmad Daly MD Work Phone: Start: 01-21-2024 Glucose blood reagent strip Sarmad Daly MD Work Phone: Start: 01-21-2024 Echo [facility] r-t 2d w/ wom-mode compl spec&colr d Xochitl Hampton MD Work Phone: Start: 01-21-2024 Glucose blood reagent strip Sarmad Daly MD Work Phone: Start: 01-21-2024 Basic metabolic pane l calcium total Gurmeet Gloria MD Work Phone: Start: 01-21-2024 Glucose blood reagent strip Sarmad Daly MD Work Phone: Start: 01-20-2024 End: 01-20-2024 Basic metabolic panel calcium total Xochitl Hampton MD Work Phone: Start: 01-20-2024 End: 01-20-2024 Basic metabolic panel calcium total Sarmad Daly MD Work Phone: Start: 01-20-2024 Glucose blood reagent strip Sarmad Daly MD Work Phone: Start: 01-20-2024 EXTUBATION Stacy Brown MD Work Phone: Start: 01-20-2024 Glucose blood reagent strip Sarmad Daly MD Work Phone: Start: 01-20-2024 Glucose blood reagent strip Sarmad Daly MD Work Phone: Start: 01-20-2024 End: 01-20-2024 Basic metabolic panel calcium total Xochitl Hampton MD Work Phone: Start: 01-20-2024 End: 01-20-2024 Glucose blood reagent strip Sarmad Daly MD Work Phone: Start: 01-20-2024 Glucose blood reagent strip Sarmad Daly MD Work Phone: Start: 01-20-2024 Glucose blood reagent strip Sarmad Daly MD Work Phone: Start: 01-20-2024 Glucose blood reagent strip Sarmad Daly MD Work Phone: Start: 01-20-2024 ARTERIAL BLOOD GAS, POC Sarmad Daly MD Work Phone: Start: 01-20-2024 End: 01-20-2024 Basic metabolic panel calcium total Kaushal Ashley MD Work Phone: Start: 01-20-2024 Drug screen quantita tive vancomycin Xochitl Hampton MD Work Phone: Start: 01-20-2024 End: 01-20-2024 Basic metabolic panel calcium total Xochitl Hampton MD Work Phone: Start: 01-20-2024 End: 01-20-2024 Glucose blood reagent strip Sarmad Daly MD Work Phone: Start: 01-19-2024 Glucose blood reagent strip Sarmad Daly MD Work Phone: Start: 01-19-2024 Glucose blood reagent strip Sarmad Daly MD Work Phone: Start: 01-19-2024 Glucose blood reagent strip Sarmad Daly MD Work Phone: Start: 3 End: 01-19-2024 Basic metabolic panel calcium total Xochitl Hampton MD Work Phone: Start: 01-19-2024 Glucose blood reagent strip Sarmad Daly MD Work Phone: Start: 01-19-2024 Glucose blood reagent strip Sarmad Daly MD Work Phone: Start: 01-19-2024 Mri brain brain stem w/o w/contrast material Addy Brown DO Work Phone: Start: 01-19-2024 Glucose body fluid o ther than blood Stacy Brown MD Work Phone: Start: 01-19-2024 MENINGITIS ENCEPHALI TIS PANEL CSF, MOLECULAR Stacy Brown MD Work Phone: Start: 01-19-2024 Syphilis test non-tr eponemal antibody qual Stacy Brown MD Work Phone: Start: 01-19-2024 End: 01-19-2024 Cul bact xcpt urine blood/stool aerobic isol Stacy Brown MD Work Phone: Start: 01-19-2024 Diagnostic lumbar sp inal puncture w/fluor or ct Stacy Brown MD Work Phone: Start: 01-19-2024 ARTERIAL BLOOD GAS, POC Sarmad Daly MD Work Phone: Start: 01-19-2024 End: 01-19-2024 Basic metabolic panel calcium total Xochitl Hampton MD Work Phone: Start: 01-19-2024 Radiologic exam abdomen 1 view Stacy Brown MD Work Phone: Start: 01-19-2024 Radiologic exam ches t single view Stacy Brown MD Work Phone: Start: 01-19-2024 Cytp flu washgs/brus hings xcpt c/v smrs interpj Stacy Brown MD Work Phone: Start: 01-19-2024 ARTERIAL BLOOD GAS, POC Sarmad Daly MD Work Phone: Start: 01-19-2024 End: 01-19-2024 Glucose blood reagent strip Sarmad Daly MD Work Phone: Start: 01-19-2024 End: 01-19-2024 Calcium ionized Xochitl Hampton MD Work Phone: Start: 01-19-2024 Radiologic exam ches t single view Xochitl Hampton MD Work Phone: Start: 01-19-2024 Culture bacterial qu anttative colony count urine Xochitl Hampton MD Work Phone: Start: 01-19-2024 RESPIRATORY PANEL, Andres DENSON, WITH COVID-19 Xochitl Hampton MD Work Phone: Start: 01-19-2024 End: 01-19-2024 CULTURE, BLOOD 1 Xochitl Hampton MD Work Phone: Start: 01-19-2024 End: 01-19-2024 Assay of ammonia Xochitl Hampton MD Work Phone: Start: 01-19-2024 Assay of ethanol Sony Ashley MD Work Phone: Start: 01-19-2024 BASIC METABOLIC PANE L W/ REFLEX TO MG FOR LOW K Kaushal Ashley MD Work Phone: Start: 01-19-2024 End: 01-19-2024 C-reactive protein Kaushal slaughter MD Work Phone: Start: 01-19-2024 End: 01-19-2024 Creatine kinase total Kaushal gottlieb MD Work Phone: Start: 01-19-2024 MYOGLOBIN, BLOOD Sony Ashley MD Work Phone: Start: 01-19-2024 Iadna s aureus methi cillin resist amp probe tq Blu Call MD Work Phone: Start: 01-19-2024 Assay of lactate Steve siegel MD Work Phone: Start: 01-19-2024 SURGICAL PATHOLOGY REPORT Stacy Brown MD Work Phone: Start: 01-18-2024 End: 01-18-2024 Ct head/brain w/o contrast material Steve Estrada MD Work Phone: Start: 01-18-2024 End: 01-18-2024 Basic metabolic panel calcium total Steve Estrada MD Work Phone: Start: 01-18-2024 Hepatic function panel Steve Estrada MD Work Phone: Start: 01-18-2024 Ecg routine ecg w/le ast 12 lds w/i&r Steve Estrada MD Work Phone: Start: 01-18-2024 End: 01-18-2024 GLUCOSE, WHOLE BLOOD Steve Estrada MD Work Phone: Start: 09-24-2023 Gluc bld gluc mntr d ev cleared fda spec home use Karl Candelario MD Start: 09-24-2023 Gluc bld gluc mntr d ev cleared fda spec home use aKrl Candelario MD Start: 09-24-2023 Gluc bld gluc mntr d ev cleared fda spec home use Karl Candelario MD Start: 09-24-2023 Gluc bld gluc mntr d ev cleared fda spec home use Karl Candelario MD Start: 09-24-2023 Complete blood count with white cell differential, automated Cecil Ivan [employer] Work Phone: Start: 09-24-[address] janessa [place] Moncho [employer] WORK[employer] Work Phone: Start: 09-23-2023 Electroencephalogram w/rec awake&drowsy Aracely Hilary [employer] Work Phone: Start: 09-23-2023 Echo tthrc r-t 2d w/ wom-mode compl spec&colr d Cecil Ivan [employer] Work Phone: Start: 09-23-2023 End: 09-23-2023 Renal function panel Cecil Ivan [employer] WORK[employer] Work Phone: Start: 09-23-2023 Gluc bld gluc mntr d ev cleared fda spec home use aKrl Candelario MD Start: 09-22-2023 Gluc bld gluc mntr d ev cleared fda spec home use Karl Candelario MD Start: 09-22-2023 Gluc bld gluc mntr d ev cleared fda spec home use Karl Candelario MD Start: 09-22-2023 Mri brain brain stem w/o contrast material Aracely Hilary [employer] WORK[employer] Work Phone: Start: 09-22-2023 End: 09-22-2023 Gluc bld gluc mntr dev cleared fda spec home use Karl Candelario MD Start: 09-22-2023 Iadna multiple organ isms amplified probe tq Cecil Moralesjennifer GANG WORKER-[facility] Work Phone: Start: 09-22-2023 End: 09-22-2023 Drug tst prsmv instrmnt chem analyzers pr date Cecil Moralesjennifer GANG WORKER-[facility] Work Phone: Start: 09-22-2023 Gluc bld gluc mntr d ev cleared fda spec home use Karl Candelario MD Start: 09-22-2023 Blood gases any comb ination ph pco2 po2 co2 hco3 Karl Candelario MD Start: 09-22-2023 VENT[employer]ATOR SETTINGS Sat sumit Candelario MD Start: 09-22-2023 Gluc bld gluc mntr d ev cleared fda spec home use Karl Candelario MD Start: 09-22-2023 Complete blood count with white cell differential, automated Reginaldo Beltran MD Work Phone: Start: 09-22-2023 End: 09-22-2023 Comprehensive metabolic panel Reginaldo benson MD Work Phone: Start: 09-22-2023 Gluc bld gluc mntr d ev cleared fda spec home use Karl Candelario MD Start: 09-22-2023 Gluc bld gluc mntr d ev cleared fda spec home use Karl Candelario MD Start: 09-21-2023 Gluc bld gluc mntr d ev cleared fda spec home use Karl Candelario MD Start: 09-21-2023 Cultyp nuc acid amp prb cult/isolate ea clair Candelario MD Start: 09-21-2023 Culture bacterial qu anttative colony count urine Reginaldo Beltran MD Work Phone: Start: 09-21-2023 Urinalysis, reagent strip without microscopy Reginaldo Beltran MD Work Phone: Start: 09-21-2023 Urine drug screening Tamara Beltran MD Work Phone: Start: 09-21-2023 Gluc bld gluc mntr d ev cleared fda spec home use Reginaldo Beltran MD Work Phone: Start: 09-21-2023 Ct head/brain w/o co ntrast material Reginaldo Beltran MD Work Phone: Start: 09-21-2023 Radiologic exam ches t single view Reginaldo Beltran MD Work Phone: Start: 09-21-2023 Comprehensive metabolic panel Reginaldo Beltran MD Work Phone: Start: 09-21-2023 Drug test def 1-7 classes Reginaldo Beltran MD Work Phone: Start: 09-21-2023 End: 09-21-2023 Culture bacterial blood aerobic w/id isolates Reginaldo Beltran MD Work Phone: Start: 09-21-2023 Blood gases any comb ination ph pco2 po2 co2 hco3 Reginaldo Beltran MD Work Phone: Start: 09-21-2023 [employer] Marine Beltran MD Work Phone: Start: 10-14-2022 Excision of Right Lo wer Leg Muscle, Open Approach DR PAULINA WINTERS . Start: 04-19-2022 BASIC METABOLIC PANE L W/ REFLEX TO MG FOR LOW K Lulú J Bush DO Work Phone: Start: 04-19-2022 Prothrombin time Caden a Kiera Bush DO Work Phone: Start: 04-19-2022 Ct head/brain w/o co ntrast material Lulú Bush DO Work Phone: Start: 04-04-2022 Ct head/brain w/o co ntrast material Cheng Lira MD Start: 04-04-2022 GLUCOSE, WHOLE BLOOD Se renée Lira MD Start: 04-04-2022 Blood count complete auto&auto difrntl wbc Cheng Lira MD Appendectomy Felix RIOSEsequiel Incision and drainag e of abscess Felix MARLY Comment on above: left arm Plan of Treatment Date Care Activity Detail Author Start: 01-21-2025 [facility] Start: 01-17-2025 GFR test (Diabetes, CKD 3-4, OR last GFR 1559) GFR test (Diabetes, CKD 3-4, OR last GFR 15-) [facility] Start: 05-17-2024 Influenza vaccination Flu vacc ine (Season Ended) [facility] Start: 05-17-2024 [facility] Start: 04-19-2024 Hemoglobin A1c measurement [facility] Start: 12-20-2023 Shingles vaccine (1 of 2) Villar gles vaccine (1 of 2) [facility] Start: 12-20-2023 [facility] Start: 06-17-2023 COVID-19 VACCINE (2022- season) COVID-19 VACCINE ( season) [facility] Start: 06-17-2023 Influenza vaccination INFLUENZA VACC INE (#1) [facility] Start: 06-17-2023 [facility] Start: 10-31-2022 Lipid panel [facility] Start: 10-27-2022 Hemoglobin A1c measurement A1C test (Diabetic or Prediabetic) [facility] Start: 06-17-2022 Influenza vaccination B [facility] Start: 01-25-2022 Hemoglobin A1c measurement A1C test (Diabetic or Prediabetic) [facility] Start: 04-21-2021 COVID-19 Vaccine (2 - Booster for Asher series) COVID-19 Vaccine (2 - Booster for Asher series) [facility] Start: 2018 Screening for malign ant neoplasm of colon [facility] Start: 2013 Lipid panel LIPID SCREENING [facility] Start: 1992 DTaP/Tdap/Td vaccine (1 - Tdap) DTaP/Tdap/Td vaccine (1 - Tdap) [facility] Start: 1992 Hepatitis B vaccine (1 of 3 - Risk 3-dose series) Hepatitis B vaccine (1 of 3 - Risk 3-dose series) [facility] Start: 1992 Third diphtheria, te tanus and acellular pertussis (DTaP) vaccination TDAP (ADULT) [facility] Start: 1992 [facility] Start: 12-20-1991 Diabetic retinal exam Diabetic retin al exam [facility] Start: 12-20-1991 Glaucoma screening [facility] Start: 12-20-1991 Hepatitis C screening B [facility] Start: 12-20-1991 Urine screening for protein [facility] Start: 1988 HIV screening [facility] Start: 1985 Depression Screen Depression Screen [facility] Start: 1985 [facility] Start: 12-20-1983 Diabetic foot examination [facility] Start: 12-20-1979 Pneumococcal 0-64 ye ars Vaccine (1 - PCV) Pneumococcal 0-64 years Vaccine (1 - PCV) [facility] Start: 12-20-1979 Pneumococcal 0-64 ye ars Vaccine (1 of 2 - PCV) Pneumococcal 0-64 years Vaccine (1 of 2 - PCV) [facility] Start: 12-20-1979 PNEUMOCOCCAL VACCINE SERIES (1 - PCV) PNEUMOCOCCAL VACCINE SERIES (1 - PCV) [facility] Start: 12-20-1979 [facility] Start: 1973 Hepatitis B vaccine (1 of 3 - 3-dose series) Hepatitis B vaccine (1 of 3 - 3-dose series) [facility] Start: 1973 Hepatitis C screening HEPATITI S C VIRUS SCREENING [facility] Start: 1973 Tetanus vaccination TETANUS [facility] Start: 1973 [facility] Bacteria identified in Blood by Culture [facility] End: 01-26-2024 Basic metabolic 2000 panel - Serum or Plasma [facility] Work Phone: End: 01-19-2024 BRUCELLA SEROLOGY [facility] End: 01-25-2024 CBC W Auto Differential panel - Blood [facility] Continuous pulse oximetry [facility] End: 09-21-2023 CT Cervical spine WO contrast [facility] Comment on above: One Time for 1 Occur rences starting 09/21/2023 until 09/21/2023 CT Head WO contrast CT Head W/O Contrast Imaging CODE STROKE 01/18/2024 10:52 PM EDT [facility] Culture, Blood 1 [facility] End: 01-19-2024 Culture, Respiratory [facility] EKG 12 Lead EKG 12 Lead ECG STAT 01/18/2024 10:42 PM EDT [facility] End: 01-22-2024 Electroencephalogram w/rec awake&drowsy [facility] Glucose [Mass/volume ] in Serum or Plasma [facility] End: 09-22-2023 HERPES SIMPLEX VIRUS (HSV) TYPES 1/2, DNA PCR [facility] Comment on above: One Time for 1 Occur rences starting 09/22/2023 until 09/22/2023 End: 01-19-2024 Lumbar Puncture [facility] Work Phone: End: 01-26-2024 Magnesium [Mass/volume] in Serum or Plasma [facility] End: 01-23-2024 METANEPHRINES URINE [facility] End: 01-22-2024 MISCELLANEOUS SENDOUT ENC2 [facility] - autoimmune/paraneoplastic encephalitis panel [facility] End: 01-22-2024 Oligoclonal Banding [facility] Oxygen therapy [Mini [facility] Data Set] [facility] [facility] End: 01-26-2024 Phosphate [Mass/volume] in Serum or Plasma [facility] End: 01-19-2024 Q FEVER ANTIBODY [facility] End: 01-19-2024 West Nile Virus, CSF [facility] Immunizations Immunization Date Immunization Notes Care Provider Fa cility 02-24-2021 SARS-CoV-2 (COVID-19 ) Ad26 vaccine, recombinant Felix RIOSEsequiel [facility] Comment on above: Result Comment: 2023: [id number] NEGATED: Highlighted row has not occurred!09-04-2019 influenza virus vaccine, unspecified formulation Felix RIOSEsequiel [facility] Payers Date Payer Category Payer Unknown 1975 Unknown [id number] 2.16.84 [id number] 1973 Unknown [id number] 2.16.84 0.1.174829.3.579.2.593 1973 Unknown [id number] 2.16.84 0.1.271301.3.579.2.593 1973 Unknown [id number] 2.16.84 0.1.230324.3.579.2.593 1973 Unknown [id number] 2.16.84 0.1.583547.3.579.2.593 1973 Unknown [id number] 2.16.84 0.1.532670.3.579.2.593 1973 Unknown [id number] 2.16.84 0.1.470314.3.579.2.593 1973 Unknown [id number] 2.16.84 0.1.934994.3.579.2.593 1973 Unknown [id number] 2.16.84 0.1.539657.3.579.2.593 1973 Unknown [id number] 2.16.84 0.1.394175.3.579.2.593 1973 Unknown [id number] 2.16.84 0.1.048024.3.579.2.593 1973 Unknown [id number] 2.16.84 0.1.678751.3.579.2.593 1973 Unknown [id number] 2.16.84 0.1.065013.3.579.2.593 1973 Unknown [id number] 2.16.84 0.1.223108.3.579.2.593 1973 Unknown [id number] 2.16. 840.1.245472.3.579.2.196 1973 Unknown [id number] 2.16. 840.1.993406.3.579.2.196 1973 Unknown [id number] 2.16. 840.1.376014.3.579.2.196 1973 Unknown [id number] 2.16.84 0.1.208698.3.579.2.1286 1973 Unknown [id number] 2.16.8 40.1.293281.3.579.2.173 1973 Unknown [id number] 2.16. 840.1.689417.3.579.2.175 1973 Unknown [id number] 2.16.8 40.1.583918.3.579.2.983 1973 Unknown [id number] 2.16.8 40.1.072684.3.579.2.727 1961 Self-pay 1961 Unknown [id number] 1. [id number] Social History Date Type Detail Facility Start: 09-04-2019 End: 10-27-2021 Tobacco smoking status [facility] Never smoked tobacco [facility] Phone: Start: 10-27-2021 Tobacco use and exposure User of smokeless tobacco [facility] Phone: History of tobacco use Chews Tobacco [facility] Phone: Start: 04-04-2022 End: 04-19-2022 Alcohol intake Ex-drinker (finding) [employer] Phone: Start: 1975 Sex Assigned At Not on file B [facility] [employer] Phone: Start: 03-25-2022 End: 04-19-2022 Exposure to SARS-CoV-2 (event) Not sure [facility] Phone: Start: 09-23-2023 Tobacco use and exposure Smoke less tobacco non-user [employer] Start: 09-23-2023 End: 01-20-2024 History of Social function [employer] Start: 09-23-2023 End: 01-20-2024 Tobacco use panel [facility] [employer] Has the [employer], [employer], [employer], or water company threatened to shut off services in your home in past 12Mo [facility] [employer] Clinical Notes 04-19-2022 to 01-22-2024 Discharge InstructionsAttaSaturnino Reynolds MD - 01/22/2024 12:43 PM EDMarce Burks APRN - [facility] - 01/22/2024 8:07 AM Jamal Jones MD - 01/22/2024 7:04 AM EDTInstructions Note Date & Type Note Facility 01-22-2024 Hospital Discharg e instructions Maulik Guardado MD - 01/22/2024 2:27 PM EDT You were admitted to the hospital with altered mental status and was found to be hypertensive- 240s.. Please start taking Coreg and nifedipine for blood pressure control. Blood pressure medications do not cause diarrhea. If you develop diarrhea, please call your PCP to be evaluated Your brain MRI was concerning for some lesions and you will need a repeat brain MRI in 6-8 weeks as per neurology and outpatient follow-up with neurology Please take insulin regularly. As missing your insulin can lead due to diabetic ketoacidosis, if you find any trouble with taking insulin please call your PCP Please follow-up with your PCP within 1 week for diabetes and hypertension The following attachments cannot be sent through Care Everywhere.Diabetes: Carb Counting and Eating Well: General Info (Burmese)documented in this encounter [facility] 01-22-2024 History of Presen t illness Narrative Images from the original note were not included. [facility] Progress Note José Luis Gorman Date: 01/22/2024 LOS: 3 Reason for F/U : Possible meningitis Impression : Altered mental status concern for toxic metabolic encephalopathy versus primary HYBRID CORN BREEDER process Status post lumbar puncture 01/19/2024 at IR and CSF findings not consistent with primary HYBRID CORN BREEDER infection Respiratory failure-intubated for airway protection Extubated 01/20/2024 Diabetes mellitus type 2 poorly controlled Was on insulin drip now completed Hypertensive emergency responded well to Cardene drip and has been able to wean off of it Concern for stroke given left-sided facial droop, dysarthria Symptoms have resolved and imaging negative for ischemic disease Chronic kidney disease stage III History of substance abuse Recommendations: The patient was initially started on Rocephin, vancomycin, and acyclovir empirically for HYBRID CORN BREEDER infection Antibiotics were narrowed down to Rocephin 01/20/2024 All the blood, CSF culture data thus far remains negative The patient is markedly improved is following commands and has no neurological deficits At this point in time the plan will be to discontinue the antibiotic therapy Infectious disease bower the patient is stable and all testing has been negative-we will sign off surgical be of any further assistance please do not hesitate to call us back Infection Control Recommendations: [place] precautions Discharge Planning: Patient will need Midline Catheter Insertion/ PICC line Insertion: No Patient will need: Home IV , Infusion Center, SNF, LTAC: Undetermined Patient willneed outpatient wound care: No Medical Decision making / Summary of Stay: José Luis Gorman is a 48 y.o.-year-old male who was initially admitted on 01/19/2024. José Luis is seen and evaluated at bedside he is awake and does moan to his name and is somewhat agitated has a sitter in the room. Unfortunately he is not able to give me any history and the history is obtained from reviewing the chart. He has a history of diabetes mellitus type 2, chronic kidney disease stage III, polysubstance abuse, and prior admissions for acute delirium/agitation in September 2023. 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 The patient presented to the emergency department with a headache, slurred speech and left-sided weakness and the blood pressure was noted to be extremely elevated. The patient was admitted with hypertensive crisis/encephalopathy and his mentation continued to worsen while he was hospitalized became agitated. The patient was evaluated by the stroke team and had a CT of the head and CTA of the head and neck that were unremarkable. Blood glucose level was 500 and systolic blood pressure was 240 prompting transfer here to [facility] The patient continued to get increasingly confused, was vomiting intractably, did require Cardene drip with improvement in his blood pressure. The patient was started on insulin drip and the Cardene drip was subsequently stopped. The patient was febrile to 101 and I been asked to evaluate as there is concern for meningitis, PRESS syndrome and the patient has been started empirically on antimicrobial therapy with Rocephin, vancomycin, and acyclovir. I was asked to evaluate and help with antibiotic management. 01/18 He was taken to interventional radiology underwent fluoroscopy guided lumbar puncture at L3-L4 with 12 mL of clear CSF obtained The patient underwent an MRI of the brain that showed high FLAIR signal changes in the perimesencephalic cistern and bilateral cerebral convexities which is a nonspecific finding The patient has been successfully extubated 01/20/2024. He was transferred out of the ICU 01/21/2024 Current evaluation:01/22/2024 BP 129/77 Pulse 74 Temp 98.4 F (36.9 C) (Oral) Resp 19 Ht 1.778 m (5' 10 ) Wt 88.3 kg (194 lb 10.7 oz) SpO2 99% BMI 27.93 kg/m Temperature Range: Temp: 98.4 F (36.9 C) Temp Av.2 F (36.8 C) Min: 97.4 F (36.3 C) Max: 98.7 F (37.1 C) The patient is seen and evaluated at bedside and he is awake and alert in no acute distress. He does not report any subjective fever or sweats. He does report some ongoing/longstanding chills episodically No headaches, sore throat or cough. No abdominal pain nausea or vomiting. Review of Systems Constitutional: Negative. HENT: Negative. Respiratory: Negative. Cardiovascular: Negative. Gastrointestinal: Negative. Genitourinary: Negative. Musculoskeletal: Negative. Neurological: Negative. Psychiatric/Behavioral: Negative. Physical Examination : Physical Exam Constitutional: Appearance: He is well-developed. HENT: Head: Normocephalic and atraumatic. Cardiovascular: Rate and Rhythm: Normal rate. Heart sounds: Normal heart sounds. No friction rub. No gallop. Pulmonary: Effort: Pulmonary effort is normal. Breath sounds: Normal breath sounds. No wheezing. Abdominal: General: Bowel sounds are normal. Palpations: Abdomen is soft. There is no mass. Tenderness: There is no abdominal tenderness. Musculoskeletal: Cervical back: Neck supple. Lymphadenopathy: Cervical: No cervical adenopathy. Skin: General: Skin is warm and dry. Neurological: Mental Status: He is alert and oriented to person, place, and time. Laboratory data: I have independently reviewed the followinglabs: CBC with Differential: Recent Labs 01/21/24 0452 01/22/24 0508 WBC 9.2 7.4 HGB 10.3* 10.2* HCT 31.9* 31.6* PLT 162 164 LYMPHOPCT 14* 21* MONOPCT 8 7 BMP: Recent Labs 01/21/24 0452 01/22/24 0508 NA 136 136 K 4.2 3.8 CL 105 105 CO2 18* 22 BUN 29* 25* CREATININE 1.5* 1.3* MG 1.9 2.2 Hepatic Function Panel: No results for input(s): PROT , LABALBU , BILIDIR , IBILI , BILITOT , ALKPHOS , ALT , AST in the last 72 hours. Lab Results Component Value Date/Time PROCAL 0.15 01/19/2024 01:53 PM Lab Results Component Value Date/Time CRP 3.7 01/19/2024 04:45 AM CRP 198.9 10/31/2021 05:34 AM CRP 272.6 10/30/2021 05:45 AM Lab Results Component Value Date SEDRATE 28 (H) 01/19/2024 No results found for: DDIMER No results found for: FERRITIN No results found for: LDH No results found for: FIBRINOGEN Results in Past 30 Days Result Component Current Result Ref Range Previous Result Ref Range SARS-CoV-2, PCR Not Detected (01/19/2024) Not Detected Not in Time Range Lab Results Component Value Date/Time COVID19 Not Detected 01/19/2024 09:09 AM COVID19 Not Detected 10/27/2021 11:36 AM No results for input(s): RHONA in the last 72 hours. Component Ref Range & Units 01/19/24 1556 Volume, CSF mL 12 Appearance, CSF Clear Xanthochromia ABSENT WBC, CSF <5 cells/uL 0 RBC, CSF 0 cells/uL 0 Tube Number, CSF 3 Resulting [place] [facility]lected: 01/19/24 15:56 EDT Last Resulted: 01/19/24 18:24 EDT Imaging Studies: MRI OF THE BRAIN WITHOUT AND WITH CONTRAST 01/19/2024 3:13 pm IMPRESSION: 1. High FLAIR signal changes are seen in the perimesencephalic cistern and bilateral cerebral convexities. Patient is intubated. The finding could represent manifestation of increased oxygen tension in the CSF versus less likely due early meningitis versus remote subarachnoid hemorrhage. These findings are nonspecific, but can be seen in the setting of meningitis. Correlation with CSF sampling is recommended. 2. No abnormal focus on brain or meningeal enhancement. Specimen Collected: 01/19/24 17:46 EDT Last Resulted: 01/19/24 17:53 EDT Cultures: Procedure Component Value Units Date/Time Culture, Blood 1 [[id number]] Collected: 01/19/24 0814 Order Status: Completed Specimen: Blood Updated: 01/22/2418 Specimen Description .BLOOD Special Requests R HAND 5 ML Culture NO GROWTH 3 DAYS Culture, Blood 1 [[id number]] Collected: 01/19/24 0810 Order Status: Completed Specimen: Blood Updated: 01/22/2414 Specimen Description .BLOOD Special Requests L HAND 5 ML Culture NO GROWTH 3 DAYS Culture, CSF [[id number]] Collected: 01/19/24 1553 Order Status: Completed Specimen: CSF Updated: 01/22/24 0721 Specimen Description .CSF Direct Exam RARE NEUTROPHILS NO ORGANISMS SEEN Gram stain made from cytocentrifuged specimen. Organisms and cells will be concentrated. Culture NO GROWTH 3 DAYS Lyme Disease AB, CSF [[id number]] Collected: 01/19/24 1556 Order Status: Completed Specimen: CSF Updated: 01/21/24 1640 B burgdorferi Ab,CSF 0.08 IV Comment: (NOTE) When Borrelia burgdorferi VlsE1/pepC10 assay is negative further testing is not recommended and will not be performed. REFERENCE INTERVAL: B. burgdorferi VlsE1/pepC10 Abs, CSF 0.90 IV or less ....... Negative - VlsE1 and pepC10 antibodies to B. burgdorferi not detected. 0.91-1.09 IV .......... Equivocal - Repeat testing in 10-14 days may be helpful. 1.10 IV or greater .... Positive - VlsE1 and pepC10 antibodies to B. burgdorferi detected. The detection of antibodies to Borrelia burgdorferi in cerebrospinal fluid may indicate central nervous system infection. However, consideration must be given to possible contamination by blood or transfer of serum antibodies across the blood-brain barrier. Lyme disease diagnosis in serum is recommended prior to any CSF studies. This test was developed and its performance characteristics determined by [facility]. It has not been cleared or approved by the [place] Food and Drug Administration. This test was performed in a CLIA certified laboratory and is intended for clinical purposes. Performed By: [facility] [address] [place] [id number] Regional Business Manager: Rogelio Miranda MD, PhD CLIA Number: [id number] VDRL CSF [[id number]] Collected: 01/19/24 1556 Order Status: Completed Specimen: CSF Updated: 01/20/24 1119 VDRL, CSF Screen NONREACTIVE Culture, Urine [[id number]] Collected: 01/19/24 0911 Order Status: Completed Specimen: Urine, straight catheter Updated: 01/20/24 0853 Specimen Description .URINE,STRAIGHT CATHETER Culture NO GROWTH Meningitis Encephalitis Panel CSF, Molecular [[id number]] Collected: 01/19/24 1556 Order Status: Completed Specimen: CSF Updated: 01/19/24 1848 Specimen Description .CSF ESCHERICHIA COLI K1 CSF FILM ARRAY Not Detected HAEMOPHILUS INFLUENZA CSF FILM ARRAY Not Detected LISTERIA MONOCYTOGENES CSF FILM ARRAY Not Detected NEISSERIA MENIGITIDIS CSF FILM ARRAY Not Detected STREPTOCOCCUS AGALACTIAE CSF FILM ARRAY Not Detected STREPTOCOCCUS PNEUMONIAE CSF FILM ARRAY Not Detected CYTOMEGALOVIRUS (CMV) CSF FILM ARRAY Not Detected ENTEROVIRUS CSF FILM ARRAY Not Detected HSV-1 CSF FILM ARRAY Not Detected HSV-2 CSF FILM ARRAY Not Detected HHV-6 (HERPESVIRUS 6) CSF FILM ARRAY Not Detected PARECHOVIRUS CSF FILM ARRAY Not Detected VARICELLA-ZOSTER CSF FILM ARRAY Not Detected CRYPTOCOCCUS NEOFORMANS/RADHA CSF FILM ARR. Not Detected Comment: Performed by multiplexed nucleic acid assay. West Nile Virus, CSF [[id number]] Collected: 01/19/24 1556 Order Status: Sent Specimen: CSF Updated: 01/19/24 1557 Herpes simplex virus PCR [[id number]] Collected: 01/19/24 1548 Order Status: Sent Specimen: CSF Updated: 01/19/24 1548 Gram stain CSF [[id number]] Collected: 01/19/24 1546 Order Status: Canceled Specimen: Spinal Fluid Culture, Respiratory [[id number]] Order Status: No result Specimen: Endotracheal Respiratory Panel, Molecular, with COVID-19 (Restricted: peds pts or suitable admitted adults) [[id number]] Collected: 01/19/24 0909 Order Status: Completed Specimen: Nasopharyngeal Swab Updated: 01/19/24 1049 Specimen Description .NASOPHARYNGEAL SWAB Adenovirus PCR Not Detected Coronavirus 229E PCR Not Detected Coronavirus HKU1 PCR Not Detected Coronavirus NL63 PCR Not Detected Coronavirus OC43 PCR Not Detected SARS-CoV-2, PCR Not Detected Human Metapneumovirus PCR Not Detected Rhino/Enterovirus PCR Not Detected Influenza A by PCR Not Detected Influenza B by PCR Not Detected Parainfluenza 1 PCR Not Detected Parainfluenza 2 PCR Not Detected Parainfluenza 3 PCR Not Detected Parainfluenza 4 PCR Not Detected Resp Syncytial Virus PCR Not Detected Bordetella parapertussis by PCR Not Detected B Pertussis by PCR Not Detected Chlamydia pneumoniae By PCR Not Detected Mycoplasma pneumo by PCR Not Detected Comment: Performed by multiplexed nucleic acid assay. MRSA DNA Probe, Nasal [[id number]] Collected: 01/19/24 0437 Order Status: Completed Specimen: Nasal Updated: 01/19/24 0853 Specimen Description .NASAL SWAB MRSA, DNA, Nasal NEGATIVE Comment: NEGATIVE: MRSA DNA not detected by nucleic acid amplification. Results should be used as an adjunct to nosocomial control efforts to identify patients needing enhanced precautions. The test is not intended to identify patients with staphylococcal infections. Results should not be used to guide or monitor treatment for MRSA infections. Medications: insulin glargine 15 Units SubCUTAneous Nightly pantoprazole 40 mg Oral QAM AC folic acid 1 mg Oral Daily thiamine 100 mg Oral Daily carvedilol 12.5 mg Oral BID NIFEdipine 30 mg Oral Daily cefTRIAXone (ROCEPHIN) IV 2,000 mg IntraVENous Q24H insulin lispro 0-16 Units SubCUTAneous TID insulin lispro 0-4 Units SubCUTAneous Nightly sodium chloride flush 5-40 mL IntraVENous 2 times per day heparin (porcine) 5,000 Units SubCUTAneous 3 times per day insulin regular 14 Units IntraVENous Once chlorhexidine 15 mL Mouth/Throat BID [facility] Saturnino Angel MD [employer] OFFICE: Thank you for allowing us to participate in the care of this patient. Please call with questions. This note is created with the assistance of a speech recognition program. While intending to generate a document that actually reflects the content of the visit, the document can still have some errors including those of syntax and sound a like substitutions which may escape proof reading. In such instances, actual meaning can be extrapolated by contextual diversion. Images from the original note were not included. NEUROLOGY INPATIENT PROGRESS NOTE 01/22/2024 Current Exam: Chart reviewed. Discussed with RN. Repeat MRI brain planned for today. He is alert and oriented. He denies any complaints. Did require a dose of Labetalol overnight. Brief History: José Luis Gorman is a 48 y.o. male with H/O DM, who was admitted as a transfer from [facility] on 01/19/2024 with persistent headache. While at [facility] patient reportedly worsened in regards to his mentation and became more confused and agitated prompting transfer to [facility] for further evaluation and care. He was significantly hypertensive and was admitted to the medical ICU and placed on a Cardene drip. The morning of 01/18 he continued to worsen and ultimately required intubation. Also developed a fever requiring an infectious workup; he underwent LP on 01/18 with findings not consistent with a primary HYBRID CORN BREEDER infection nor suggestive of SAH. No current facility-administered medications on file prior to encounter. Current Outpatient Medications on File Prior to Encounter Medication Sig Dispense Refill hydroCHLOROthiazide (HYDRODIURIL) 25 MG tablet Take 1 tablet by mouth every morning for 14 days 14 tablet 0 insulin detemir (LEVEMIR FLEXTOUCH) 100 UNIT/ML injection pen Inject 50 Units into the skin daily (Patient not taking: Reported on 01/20/2024) 5 pen 3 insulin lispro, 1 Unit Dial, (HUMALOG KWIKPEN) 100 UNIT/ML SOPN Inject 10 Units into the skin 3 times daily (before meals) If blood sugar is greater than 200 take 15 units (Patient not taking: Reported on 01/20/2024) 3 pen 3 Allergies: José Luis Gorman has No Known Allergies. Past Medical History: Diagnosis Date Diabetes mellitus (HCC) Past Surgical History: Procedure Laterality Date APPENDECTOMY LEG SURGERY Right 10/30/2021 right intrarticular hip aspiration under fluro performed by Paulina Kuhn DO at [facility] OR Social History: José Luis Gorman reports that he has never smoked. His smokeless tobacco use includes chew. He reports that he does not currently use alcohol. He reports that he does not use drugs. No family history on file. Objective: BP (!) 161/87 Pulse 81 Temp 98.4 F (36.9 C) (Oral) Resp 15 Ht 1.778 m (5' 10 ) Wt 88.3 kg (194 lb 10.7 oz) SpO2 97% BMI 27.93 kg/m Blood pressure range: Systolic (24hrs), Av , Min:145 , Max:210 ; Diastolic (24hrs), Av, Min:76, Max:123 Review of Systems: Constitutional Negative for fever and chills HEENT Negative for ear discharge, ear pain, nosebleed Eyes Negative for photophobia, pain and discharge Respiratory Negative for hemoptysis and sputum Cardiovascular Negative for orthopnea, claudication and PND Gastrointestinal Negative for abdominal pain, diarrhea, blood in stool Musculoskeletal Negative for joint pain, negative for myalgia Skin Negative for rash or itching Endo/heme/allergies Negative for polydipsia, environmental allergy Psychiatric/behavioral Negative for suicidal ideation. Patient is not anxious NEUROLOGIC EXAMINATION GENERAL Appears comfortable and in no distress HEENT NC/ AT NECK Supple MENTAL STATUS: Alert, oriented, intact memory, no confusion, normal speech, normal language, no hallucination or delusion CRANIAL NERVES: II - Visual castillo intact to confrontation III,IV, - EOMs full, no afferent defect, no PRESTON, no ptosis V - Normal facial sensation VII - Normal facial symmetry VIII - Intact hearing IX,X - Symmetrical palate XI - Symmetrical shoulder shrug XII - Midline tongue, no atrophy MOTOR FUNCTION: significant for good strength of grade 5/5 in bilateral proximal and distal muscle groups of both upper and lower extremities with normal bulk, normal tone and no involuntary movements, no tremor SENSORY FUNCTION: Normal touch, normal pin CEREBELLAR FUNCTION: Intact fine motor control over upper limbs REFLEX FUNCTION: Symmetric, no perverted reflex, no Babinski sign STATION and GAIT Not tested Data: Lab Results: CBC: Recent Labs 01/20/2433501/21/24 0452 01/22/24 0508 WBC 11.1 9.2 7.4 HGB 10.1* 10.3* 10.2* PLT 158 162 164 BMP: Recent Labs 01/20/24202601/21/24 0452 01/22/24 0508 NA 135* 136 136 K 4.0 4.2 3.8 CL 107 105 105 CO2 16* 18* 22 BUN 32* 29* 25* CREATININE 1.5* 1.5* 1.3* GLUCOSE 211* 287* 225* Lab Results Component Value Date CHOL 136 10/31/2021 LDLCHOLESTEROL 77 10/31/2021 HDL 31 (L) 10/31/2021 TRIG 62 01/20/2024 ALT 18 01/18/2024 AST 16 01/18/2024 TSH 0.58 01/19/2024 INR 1.1 01/19/2024 LABA1C 12.0 (H) 01/19/2024 MG 2.2 01/22/2024 PHOS 3.2 01/22/2024 Diagnostic data reviewed: CT HEAD (01/18/24) - No acute intracranial abnormality. No intracranial hemorrhage. CTA HEAD AND NECK (01/18/24) - 1. No evidence of arterial stenosis or occlusion in the head or neck. 2. No acute intracranial abnormality. 3. Sphenoid sinus disease. BRAIN MRI (01/19/24) - 1. High FLAIR signal changes are seen in the perimesencephalic cistern and bilateral cerebral convexities. Patient is intubated. The finding could represent manifestation of increased oxygen tension in the CSF versus less likely due early meningitis versus remote subarachnoid hemorrhage. These findings are nonspecific, but can be seen in the setting of meningitis. Correlation with CSF sampling is recommended. 2. No abnormal focus on brain or meningeal enhancement. LUMBAR PUNCTURE (01/19/24) - Impression: -Acute encephalopathy, unclear etiology -Hypertensive emergency -Acute respiratory failure Plan: -Patient had a similar admission 3 months ago at [facility] with acute respiratory failure in the setting of agitation and hypertensive crisis -Workup has been unrevealing with CSF studies noninfectious and no RBC to suggest SAH -Repeat MRI brain planned for today; may need another repeat MRI in the next 6-8 weeks pending results from today's study -We will follow ADDENDUM: Repeat MRI brain reviewed; official result is pending however there is evidence of cortical hyperintensity in the right posterior cerebral hemisphere on DWI; possibly post ictal changes. Will add O bands. Will get EEG. Lower suspicion of stroke given distribution. Please note that this note was generated using a voice recognition dictation software. Although every effort was made to ensure the accuracy of this automated hse manager, some errors in hse manager may have occurred. Associated attestation - Addy Brown DO - 01/22/2024 5:13 PM EDT Attending Physician Statement: I have discussed the care of José Luis Gorman, including pertinent history and exam findings with the MARIAN. I have seen and examined the patient and the swartz elements of the encounter have been performed by me. I have reviewed medications, clinical laboratory, imaging and other diagnostic tests with the MARIAN. I agree with the assessment, plan and orders as documented by the MARIAN with changes made to the note as needed. Clinically doing well. MRI Brain is reviewed; previous area of hyperintensity in the perimesencephalic region has resolved although there is now an area of diffusion restriction and hyperintensity in the right frontal, parietal region which was not there prior. Does not appear to be in a specific vascular territory to suggest stroke although it is in the differential as well as post seizure-like changes and encephalitis. CSF studies for the most part are negative except for elevated protein of 83. West Nile virus is pending. Notable clonal bands are pending. Will add [facility] encephalitis panel. Discussed with patient at length that I would not advise he be discharged today. He is threatening to leave AMA at this time. He understands that he would need more workup including EEG at minimum with the persistently abnormal MRI brain. He is adamant he will leave AMA despite understanding the risks of potential neurologic worsening. Discussed with nurse Addy Brown DO 01/22/2024 5:08 PM Images from the original note were not included. [facility] Internal Medicine Teaching Residency Program Inpatient Daily Progress Note Patient: José Luis Gorman Date of : 1975 Acct: [id number] Room: [address] [place] [address]- Admit date: 01/19/2024 Today's date: 01/22/24 Number of days in the hospital: 3 SUBJECTIVE Admitting Diagnosis: Hypertensive encephalopathy CC: headache Pt examined at bedside. Chart & results reviewed. Patient is eating ok, sleeping ok, normal bowel/ bladder movements. Patient is able to ambulate. CR improving 1.7-1.5-1.3 BP consistently elevated SBP 170-160s Patient is on nifedipine 30 XR, and coreg 12.5 BID, urine metaephrine 24hr PRN therapy ROS: negative except the findings mentioned above BRIEF HISTORY he patient is a 48 y.o. male with past medical history significant for diabetes, untreated hypertension. Who was initially admitted on 01/19/2024 with Hypertensive encephalopathy [I67.4] Hypertensive emergency [I16.1] He presented with high blood sugar and headache for the past 1 to 2 days at [facility]. He was also noted to have left-sided facial droop, left-sided deficits and there was a concern for possible dysarthria, telestroke team was consulted. Imaging was negative for any kind of acute changes like CT and CTA head and neck. His blood pressure was in the 240s, patient was started on Cardene drip with improvement. And later was transferred to the [facility] ICU. On arrival to the ICU his blood sugars were in 500s, and was started on insulin drip. Patient was later intubated, due to concerns for central apnea for airway protection. For the concerns of HYBRID CORN BREEDER infection patient was started on Rocephin, vancomycin and acyclovir empirically. These antibiotics were narrowed down to Rocephin on 01/20/2024. Underwent MRI and LP for the concerns of HYBRID CORN BREEDER infections which were negative. His neurological status significantly improved after his blood pressure, blood sugars were controlled. On neurology evaluation, there was concern of acute encephalopathy of unclear origin, CSF studies had been ruling out any kind of HYBRID CORN BREEDER infection, and head imaging had been ruling out hemorrhage. Patient returned to baseline. Neurology recommendations were follow-up with MRI in 6 to 8 weeks. On 01/19 patient was extubated. Insulin drip was transitioned to subcutaneous insulin. Patient was also started on Coreg for his hypertension. OBJECTIVE Vital Signs: BP (!) 161/87 Pulse 81 Temp 98.4 F (36.9 C) (Oral) Resp 15 Ht 1.778 m (5' 10 ) Wt 88.3 kg (194 lb 10.7 oz) SpO2 97% BMI 27.93 kg/m Temp (24hrs), Av.3 F (36.8 C), Min:97.5 F (36.4 C), Max:98.7 F (37.1 C) In: 422.9 Out: 3000 [Urine:3000] Physical Exam: Physical Exam Eyes: Extraocular Movements: Extraocular movements intact. Pupils: Pupils are equal, round, and reactive to light. Cardiovascular: Rate and Rhythm: Normal rate and regular rhythm. Heart sounds: Normal heart sounds. Pulmonary: Breath sounds: Normal breath sounds. Abdominal: General: Bowel sounds are normal. Musculoskeletal: General: Normal range of motion. Neurological: General: No focal deficit present. Mental Status: He is alert. Psychiatric: Mood and Affect: Mood normal. Medications: Scheduled Medications: insulin glargine 15 Units SubCUTAneous Nightly pantoprazole 40 mg Oral QAM AC folic acid 1 mg Oral Daily thiamine 100 mg Oral Daily carvedilol 12.5 mg Oral BID WC NIFEdipine 30 mg Oral Daily cefTRIAXone (ROCEPHIN) IV 2,000 mg IntraVENous Q24H insulin lispro 0-16 Units SubCUTAneous TID WC insulin lispro 0-4 Units SubCUTAneous Nightly sodium chloride flush 5-40 mL IntraVENous 2 times per day heparin (porcine) 5,000 Units SubCUTAneous 3 times per day insulin regular 14 Units IntraVENous Once chlorhexidine 15 mL Mouth/Throat BID Continuous Infusions: sodium chloride Stopped (01/19/24 1042) dextrose dextrose 5 % and 0.45 % NaCl Stopped (01/20/24 1549) PRN Medicationsmelatonin, 5 mg, Nightly PRN labetalol, 20 mg, Q6H PRN sodium chloride flush, 5-40 mL, PRN sodium chloride, , PRN potassium chloride, 20 mEq, PRN Or potassium chloride, 10 mEq, PRN magnesium sulfate, 2,000 mg, PRN ondansetron, 4 mg, Q8H PRN Or ondansetron, 4 mg, Q6H PRN polyethylene glycol, 17 g, Daily PRN acetaminophen, 650 mg, Q6H PRN Or acetaminophen, 650 mg, Q6H PRN glucose, 4 tablet, PRN dextrose bolus, 125 mL, PRN Or dextrose bolus, 250 mL, PRN glucagon (rDNA), 1 mg, PRN dextrose, , Continuous PRN promethazine, 6.25 mg, Q6H PRN [Held by provider] LORazepam, 1 mg, Q1H PRN Or [Held by provider] LORazepam, 1 mg, Q1H PRN Or [Held by provider] LORazepam, 2 mg, Q1H PRN Or [Held by provider] LORazepam, 2 mg, Q1H PRN potassium chloride, 10 mEq, PRN sodium phosphate 15 mmol in sodium chloride 0.9 % 250 mL IVPB, 15 mmol, PRN dextrose 5 % and 0.45 % NaCl, , Continuous PRN sodium chloride flush, 10 mL, PRN Diagnostic Labs: CBC: Recent Labs 01/20/24 0336 01/21/24 0452 01/22/24 0508 WBC 11.1 9.2 7.4 RBC 3.44* 3.52* 3.48* HGB 10.1* 10.3* 10.2* HCT 30.7* 31.9* 31.6* MCV 89.2 90.6 90.8 RDW 14.2 14.2 13.9 PLT 158 162 164 BMP: Recent Labs 01/20/24202601/21/24 0452 01/22/24 0508 NA 135* 136 136 K 4.0 4.2 3.8 CL 107 105 105 CO2 16* 18* 22 PHOS 1.9* 3.9 3.2 BUN 32* 29* 25* CREATININE 1.5* 1.5* 1.3* BNP: No results for input(s): BNP in the last 72 hours. PT/INR: Recent Labs 01/19/24 1353 PROTIME 13.8 INR 1.1 APTT: Recent Labs 01/19/24 1353 APTT 23.4 CARDIAC ENZYMES: No results for input(s): CKMB , CKMBINDEX , TROPONINI in the last 72 hours. Invalid input(s): CKTOTAL;3 FASTING LIPID PANEL: Lab Results Component Value Date CHOL 136 10/31/2021 HDL 31 (L) 10/31/2021 TRIG 62 01/20/2024 LIVER PROFILE: No results for input(s): AST , ALT , ALB , BILIDIR , BILITOT , ALKPHOS in the last 72 hours. MICROBIOLOGY: Lab Results Component Value Date/Time CULTURE NO GROWTH 2 DAYS 01/19/2024 03:53 PM Imaging: IR LUMBAR PUNCTURE FOR DIAGNOSIS Result Date: 01/20/2024 Successful fluoroscopic-guided lumbar puncture. CT Head W/O Contrast Result Date: 01/19/2024 No acute intracranial abnormality. No intracranial hemorrhage. The preliminary report was conveyed verbally to Dr. Steve Estrada, by CORE associate,Daija Benson at 11:07 p.m. on 01/18/2024. MRI BRAIN W WO CONTRAST Result Date: 01/19/2024 1. High FLAIR signal changes are seen in the perimesencephalic cistern and bilateral cerebral convexities. Patient is intubated. The finding could represent manifestation of increased oxygen tension in the CSF versus less likely due early meningitis versus remote subarachnoid hemorrhage. These findings are nonspecific, but can be seen in the setting of meningitis. Correlation with CSF sampling is recommended. 2. No abnormal focus on brain or meningeal enhancement. XR CHEST PORTABLE Result Date: 01/19/2024 Endotracheal tube tip overlies the distal thoracic trachea. XR ABDOMEN FOR NG/OG/NE TUBE PLACEMENT Result Date: 01/19/2024 Enteric catheter tip in region of gastric body and side-port in gastric fundus XR CHEST PORTABLE Result Date: 01/19/2024 No acute process. CTA HEAD NECK W CONTRAST Result Date: 01/18/2024 1. No evidence of arterial stenosis or occlusion in the head or neck. 2. No acute intracranial abnormality. 3. Sphenoid sinus disease. ASSESSMENT & PLAN Assessment and Plan: Principal Problem: Hypertensive encephalopathy Active Problems: Diabetic acidosis without coma (HCC) Hypertensive emergency Fever Altered mental status Encephalopathy acute Hypertensive urgency Lactic acidosis Resolved Problems: * No resolved hospital problems. * Altered mental status-/back to baseline Hypertensive emergency Hypertensive encephalopathy CT, CTA head and neck negative, lumbar puncture negative for infectious process Blood pressure controlled on Cardene, patient is off Cardene drip Resumed Coreg 12.5, nifedipine extended release 30 mg Urine metanephrine 24 hr timed, to rule out pheochromocytoma As needed medications in with labetalol Type 2 diabetes mellitus Diabetic acidosis with, resolved Blood sugar 500 on admission patient was on insulin drip, blood glucose under control drip bridge to subcu 15 Lantus subcutaneous nightly High-dose sliding scale Glucose Accu-Cheks History of substance abuse History of alcohol abuse Folic acid, B12, multivitamin Patient advised cessation of drug use ABHIJIT due to prerenal causes Creatinine on admission 1.5-improving 1.3 Baseline creatinine 0.8-1.4 Will consider adding fluids Avoiding nephrotoxic medications Diet: carb controlled DVT ppx : heparin GI ppx: protonix PT/OT: consulted Discharge Planning / SW: consulted Jamal Patel MD Internal Medicine Resident, PGY-1 [place], [place] 01/22/2024,7:13 AM Associated attestation - Charlotte Gilliland MD - 01/22/2024 1:23 PM EDT Attending Physician Statement I have discussed the care of José Luis Gorman, including pertinent history and exam findings, with the resident. I have seen and examined the patient and the swartz elements of all parts of the encounter have been performed by me. I agree with the assessment, plan and orders as documented by the resident. (GC Modifier) Evaluate for pheochromocytoma with 24 hr urine metanephrines MD OVI Steinberg Attending Physician Internal Medicine Residency Program, Nephrology [facility] 01/22/2024, 1:22 PM Images from the original note were not included. [facility] Department of Internal Medicine - Staff Internal Medicine Service ICU PATIENT TRANSFER NOTE Patient: José Luis Gorman Date of : 1975 Acct: [id number] Admit date: 01/19/2024 Code Status:- Full code Reason for ICU Admission:- SUPPORT DEVICES: [] Ventilator [] BIPAP [] Nasal Cannula [] Room Air Consultations:- [] Cardiology [] Nephrology [] Hemo onco [] GI [] ID [] ENT [] Rheum [] Endo []Physiotherapy Others:- NUTRITION: [] NPO [] Tube Feeding (Specify: ) [] TPN [] PO Central Lines:- [] No [] Yes If yes - Days/Date of Insertion. Pt seen,examined and Chart reviewed. ICU COURSE: The patient is a 48 y.o. male with past medical history significant for diabetes, untreated hypertension. Who was initially admitted on 01/19/2024 with Hypertensive encephalopathy [I67.4] Hypertensive emergency [I16.1] and presented with high blood sugar and headache for the past 1 to 2 days. He initially presented at the [facility]. He was also noted to have left-sided facial droop, left-sided deficits and there was a concern for possible dysarthria, telestroke team was consulted. Imaging was negative for any kind of acute changes like CT and CTA head and neck. His blood pressure was in the 240s, patient was started on Cardene drip with improvement. And later was transferred to the [facility] ICU. On arrival to the ICU his blood sugars were in 500s, and was started on insulin drip. Patient was later intubated, due to central apnea for airway protection. For the concerns of HYBRID CORN BREEDER infection patient was started on Rocephin, vancomycin and acyclovir empirically. These antibiotics were narrowed down to Rocephin on 01/20/2024. Underwent MRI and LP for the concerns of HYBRID CORN BREEDER infections which were negative. His neurological status significantly improved after his blood pressure, blood sugars were controlled. On neurology evaluation, there was concern of acute encephalopathy of unclear origin, CSF studies had been ruling out any kind of HYBRID CORN BREEDER infection, and head imaging had been ruling out hemorrhage. Patient returned to baseline. Neurology recommendations were follow-up with MRI in 6 to 8 weeks. On 01/19 patient was extubated. Insulin drip was transitioned to subcutaneous insulin. Patient was also started on Coreg for his hypertension. Physical Exam: Vitals: BP (!) 193/107 Comment: MD notified; recheck 176/94 Pulse 79 Temp 98.5 F (36.9 C) (Oral) Resp 14 Ht 1.778 m (5' 10 ) Wt 88.3 kg (194 lb 10.7 oz) SpO2 96% BMI 27.93 kg/m 24 hour intake/output: Intake/Output Summary (Last 24 hours) at 01/21/2024 2222 Last data filed at 01/21/2024 1800 Gross per 24 hour Intake 1560.27 ml Output 2595 ml Net -1034.73 ml Last 3 weights: Wt Readings from Last 3 Encounters: 01/21/24 88.3 kg (194 lb 10.7 oz) 01/18/24 86.2 kg (190 lb) 04/04/22 86.2 kg (190 lb) General appearance - alert, in no distress Mental status - alert, oriented to person, place, and time Eyes - pupils equal and reactive, extraocular eye movements intact Mouth - mucous membranes moist, pharynx normal without lesions Neck - supple, no significant adenopathy Chest - clear to auscultation, no wheezes Heart - normal rate, regular rhythm, normal S1, S2 Abdomen - soft, nontender, nondistended Neurological - alert, oriented, normal speech, no focal deficits Extremities - peripheral pulses normal, no pedal edema Skin - normal coloration and turgor, no rashes Medications:Current Inpatient Scheduled Meds: insulin glargine 15 Units SubCUTAneous Nightly [START ON 01/22/2024] pantoprazole 40 mg Oral QAM AC folic acid 1 mg Oral Daily thiamine 100 mg Oral Daily carvedilol 12.5 mg Oral BID WC NIFEdipine 30 mg Oral Daily labetalol 10 mg IntraVENous Once cefTRIAXone (ROCEPHIN) IV 2,000 mg IntraVENous Q24H insulin lispro 0-16 Units SubCUTAneous TID WC insulin lispro 0-4 Units SubCUTAneous Nightly sodium chloride flush 5-40 mL IntraVENous 2 times per day heparin (porcine) 5,000 Units SubCUTAneous 3 times per day insulin regular 14 Units IntraVENous Once chlorhexidine 15 mL Mouth/Throat BID Continuous Infusions: sodium chloride Stopped (01/19/24 1042) dextrose dextrose 5 % and 0.45 % NaCl Stopped (01/20/24 1549) PRN Meds:melatonin, labetalol, sodium chloride flush, sodium chloride, potassium chloride OR potassium chloride, magnesium sulfate, ondansetron OR ondansetron, polyethylene glycol, acetaminophen OR acetaminophen, glucose, dextrose bolus OR dextrose bolus, glucagon (rDNA), dextrose, promethazine, [Held by provider] LORazepam OR [Held by provider] LORazepam OR [Held by provider] LORazepam OR [Held by provider] LORazepam, potassium chloride, sodium phosphate 15 mmol in sodium chloride 0.9 % 250 mL IVPB, dextrose 5 % and 0.45 % NaCl, sodium chloride flush Objective: CBC: Recent Labs 01/19/24 0445 01/20/24 0336 01/21/24 0452 WBC 13.2* 11.1 9.2 HGB 12.9* 10.1* 10.3* PLT 201 158 162 BMP: Recent Labs 01/20/24 1657 01/20/24202601/21/24 0452 NA 137 135* 136 K 4.4 4.0 4.2 CL 106 107 105 CO2 18* 16* 18* BUN 33* 32* 29* CREATININE 1.6* 1.5* 1.5* GLUCOSE 244* 211* 287* Calcium: Recent Labs 01/21/24 0452 CALCIUM 7.9* Ionized Calcium:No results for input(s): IONCA in the last 72 hours. Magnesium: Recent Labs 01/21/24 0452 MG 1.9 Phosphorus: Recent Labs 01/21/24 0452 PHOS 3.9 BNP:No results for input(s): BNP in the last 72 hours. Glucose: Recent Labs 01/21/24 1211 01/21/24 1632 01/21/242026 POCGLU 205* 237* 195* HgbA1C: Recent Labs 01/19/24 0445 LABA1C 12.0* INR: Recent Labs 01/19/24 1353 INR 1.1 Hepatic: Recent Labs 01/18/24 2245 ALKPHOS 105 ALT 18 AST 16 PROT 7.0 BILITOT 0.2* BILIDIR <0.1 LABALBU 3.9 Amylase and Lipase: Recent Labs 01/19/24 0148 LACTA 2.2 Lactic Acid: Recent Labs 01/19/24 0148 LACTA 2.2 CARDIAC ENZYMES: Recent Labs 01/19/24 0445 CKTOTAL 226 BNP: No results for input(s): BNP in the last 72 hours. Lipids: Recent Labs 01/20/24 0336 TRIG 62 ABGs: No results found for: PH , PCO2 , PO2 , HCO3 , O2SAT Thyroid: Lab Results Component Value Date/Time TSH 0.58 01/19/2024 07:38 AM Urinalysis: Recent Labs 01/19/24 0911 BACTERIA None COLORU Yellow PHUR 5.5 PROTEINU 3+* RBCUA 5 TO 10 SPECGRAV 1.033* BILIRUBINUR NEGATIVE NITRU NEGATIVE WBCUA 2 TO 5 LEUKOCYTESUR NEGATIVE GLUCOSEU 3+* Assessment: Principal Problem: Hypertensive encephalopathy Active Problems: Diabetic acidosis without coma (HCC) Hypertensive emergency Fever Altered mental status Encephalopathy acute Hypertensive urgency Lactic acidosis Resolved Problems: * No resolved hospital problems. * Plan: Altered mental status-/back to baseline Hypertensive emergency Hypertensive encephalopathy CT, CTA head and neck negative, lumbar puncture negative for infectious process Blood pressure controlled on Cardene, patient is off Cardene drip Resumed Coreg 12.5, nifedipine extended release 30 mg As needed medications in with labetalol Type 2 diabetes mellitus Diabetic acidosis with, resolved Blood sugar 500 on admission patient was on insulin drip, blood glucose under control drip bridge to subcu 15 Lantus subcutaneous nightly High-dose sliding scale Glucose Accu-Cheks History of substance abuse History of alcohol abuse Folic acid, B12, multivitamin Patient advised cessation of drug use ABHIJIT due to prerenal causes Creatinine on admission 1.5-/is worsening to 1.7 Baseline creatinine 0.8-1.4 Will consider adding fluids Avoiding nephrotoxic medications Jamal Patel MD Department of Internal Medicine [facility], [place] 01/21/2024, 10:22 PM Critical care team - Resident sign-out to medicine service Date and time: 01/21/2024 6:21 PM Patient's name: José Luis Gorman Patient's account/billing number: [id number] Patient's Date of : 1975 Age: 48 y.o. Date of Admission: 01/19/2024 3:48 AM Length of stay during current admission: 2 Primary Care Physician: Paulina Winters MD Code Status: Full Code Mode of physician to physician communication: [x] Via telephone [] In person Date and time of sign-out: 01/21/2024 6:21 PM Accepting Internal Medicine resident: Dr. Mathews Accepting Medicine team: IM Team Med 1 Accepting team's attending: Dr. Charlotte Gilliland Patient's current ICU Bed: 3002 Patient's assigned bed on floor: 444 [] Med-Surg Monitored [x] Step-down [] Psychiatry ICU [] Psych floor Reason for ICU admission: Hypertensive emergency ICU course summary: José Luis Gorman is a 48 y.o. male with a past medical history of diabetes and untreated hypertension Patient originally presented to [facility] with complaints of high sugars and a headache that was ongoing for 1-2 days. Additionally he was noted to have left-sided facial droop, left-sided deficits, and concern for possible dysarthria, telestroke was consulted and CT head and CTA head and neck were performed and were unremarkable. He was also noted to have a blood pressure in the 240s, was started on Cardene drip with improvement of his pressures. Patient was transferred to [facility] ICU for further care and neuro evaluation. On my discussion, patient was very somnolent took repeated measures to arouse the patient to try and get answers to questioning. He was sent on Cardene drip however pressures have been adequately controlled. When he arrived here his sugars were noted to be in the 500s, he was started on insulin drip per ICU protocol. There was also some concern for withdrawals, I did not witness this but the RN was telling me that he noticed some tremulousness and tachycardia. Patient chews tobacco, denies smoking tobacco, denied alcohol, denied drug use. 01/18: Daughter contacted, who lives with him, reports his baseline mentation is normal, if not more reserved and shy. She states that he drinks but not daily or in excess. She denies any drug use. Upon arrival, pt moving all extremities equally, would occasionally mumble responses to questions but otherwise uncooperative, not following commands. Pt appears to be having central apnea, intubated for airway protection. New fever while in department. Concern for HYBRID CORN BREEDER infection. MRI and LP pending. 01/19: MRI and LP without significant findings. Pt extubated. Once he starts eating, will bridge insulin. Will also start coreg. Procedures during patient's ICU stay: Intubation and sedation Current Vitals: BP (!) 188/110 Pulse 80 Temp 98.2 F (36.8 C) (Oral) Resp 18 Ht 1.778 m (5' 10 ) Wt 92.1 kg (203 lb) SpO2 98% BMI 29.13 kg/m Cultures: Blood cultures: [] None drawn [] Negative [] Positive (Details: ) Urine Culture: [] None drawn [] Negative [] Positive (Details: ) Sputum Culture: [] None drawn [] Negative [] Positive (Details: ) Endotracheal aspirate: [] None drawn [] Negative [] Positive (Details: ) Consults: 1. Neurology Repeat MRI of the brain with and without contrast on Tuesday. Further follow-up MRI in the next 6 to 8 weeks pending Tuesday MRI results 2. Infectious disease Antibiotics narrowed down to Rocephin 01/20/2024 Assessment: Patient Active Problem List Diagnosis Date Noted Hypertensive encephalopathy 01/19/2024 Hypertensive emergency 01/19/2024 Fever 01/19/2024 Altered mental status 01/19/2024 Encephalopathy acute 01/19/2024 Hypertensive urgency 01/19/2024 Lactic acidosis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 Dopamine [] Vasopressin [] Dobutamine [] Phenylephrine [] Epinephrine OBJECTIVE: VITAL SIGNS: BP (!) 155/84 Pulse 85 Temp 98.8 F (37.1 C) (Oral) Resp 15 Ht 1.778 m (5' 10 ) Wt 92.1 kg (203 lb) SpO2 93% BMI 29.13 kg/m Tmax over 24 hours: Temp (24hrs), Av.6 F (37.6 C), Min:98.6 F (37 C), Max:101.4 F (38.6 C) Patient Vitals for the past 8 hrs: BP Temp Temp src Pulse Resp SpO2 Weight 01/21/24 0600 (!) 155/84 -- -- 85 15 93 % -- 01/21/24 0500 (!) 160/84 -- -- 87 16 96 % -- 01/21/24 0400 (!) 152/82 98.8 F (37.1 C) Oral 91 15 97 % -- 01/21/24 0300 (!) 174/98 -- -- 88 12 97 % -- 01/21/24 0200 (!) 168/95 -- -- 92 11 93 % -- 01/21/24 0100 (!) 175/91 -- -- 95 14 96 % -- 01/21/24 0057 -- -- -- -- -- -- 92.1 kg (203 lb) Intake/Output Summary (Last 24 hours) at 01/21/2024 0810 Last data filed at 01/21/2024 0647 Gross per 24 hour Intake 3322.86 ml Output 2945 ml Net 377.86 ml Date 01/21/24 0000 - 01/21/24 2359 Shift 8054-4323 7017-2485 4815-9667 24 Hour Total INTAKE I.V.(mL/kg) 955.3(10.4) 955.3(10.4) IV Piggyback(mL/kg) 182(2) 182(2) Shift Total(mL/kg) 1137.3(12.4) 1137.3(12.4) OUTPUT Urine(mL/kg/hr) 1045(1.4) 1045 Shift Total(mL/kg) 1045(11.3) 1045(11.3) Weight (kg) 92.1 92.1 92.1 92.1 Wt Readings from Last 3 Encounters: 01/21/24 92.1 kg (203 lb) 01/18/24 86.2 kg (190 lb) 04/04/22 86.2 kg (190 lb) Body mass index is 29.13 kg/m . PHYSICAL EXAM: GEN: Intubated, sleepy but awakens to voice, responds to questioning EYES: pupils equal, round, and reactive to light, extra-ocular muscles intact HEENT: Normocephalic, without obvious abnormality LUNGS: Mechanically ventilated, good air exchange, and clear to auscultation CV: regular rate and rhythm and normal S1 and S2 ABDOMEN: soft, non-distended, and non-tender MSK: there is no redness, warmth, or swelling of the joints NEURO: Awake, alert, follows commands, moves all extremities equally SKIN: Scattered healing wounds to BLE MEDICATIONS: Scheduled Meds: insulin glargine 5 Units SubCUTAneous Nightly cefTRIAXone (ROCEPHIN) IV 2,000 mg IntraVENous Q24H carvedilol 6.25 mg Oral BID insulin lispro 0-16 Units SubCUTAneous TID insulin lispro 0-4 Units SubCUTAneous Nightly sodium chloride flush 5-40 mL IntraVENous 2 times per day heparin (porcine) 5,000 Units SubCUTAneous 3 times per day [Held by provider] insulin glargine 50 Units SubCUTAneous Daily insulin regular 1-20 Units IntraVENous Once insulin regular 14 Units IntraVENous Once pantoprazole (PROTONIX) 40 mg in sodium chloride (PF) 0.9 % 10 mL injection 40 mg IntraVENous Daily folic acid 1 mg, thiamine (B-1) 100 mg in sodium chloride 0.9 % 50 mL IVPB IntraVENous Daily chlorhexidine 15 mL Mouth/Throat BID Continuous Infusions: sodium chloride 100 mL/hr at 01/21/24 0647 sodium chloride Stopped (01/19/24 1042) dextrose dextrose 5 % and 0.45 % NaCl Stopped (01/20/24 1549) dexmedeTOMIDine Stopped (01/20/24 1401) insulin Stopped (01/20/24 1600) PRN Meds: melatonin, 5 mg, Nightly PRN labetalol, 20 mg, Q6H PRN sodium chloride flush, 5-40 mL, PRN sodium chloride, , PRN potassium chloride, 20 mEq, PRN Or potassium chloride, 10 mEq, PRN magnesium sulfate, 2,000 mg, PRN ondansetron, 4 mg, Q8H PRN Or ondansetron, 4 mg, Q6H PRN polyethylene glycol, 17 g, Daily PRN acetaminophen, 650 mg, Q6H PRN Or acetaminophen, 650 mg, Q6H PRN glucose, 4 tablet, PRN dextrose bolus, 125 mL, PRN Or dextrose bolus, 250 mL, PRN glucagon (rDNA), 1 mg, PRN dextrose, , Continuous PRN promethazine, 6.25 mg, Q6H PRN [Held by provider] LORazepam, 1 mg, Q1H PRN Or [Held by provider] LORazepam, 1 mg, Q1H PRN Or [Held by provider] LORazepam, 2 mg, Q1H PRN Or [Held by provider] LORazepam, 2 mg, Q1H PRN potassium chloride, 10 mEq, PRN sodium phosphate 15 mmol in sodium chloride 0.9 % 250 mL IVPB, 15 mmol, PRN dextrose 5 % and 0.45 % NaCl, , Continuous PRN sodium chloride flush, 10 mL, PRN SUPPORT DEVICES: [] Ventilator [] BIPAP [] Nasal Cannula [x] Room Air VENT SETTINGS (Comprehensive) (if applicable): DATA: Complete Blood Count: Recent Labs 01/19/24 0445 01/20/24 0336 01/21/24 0452 WBC 13.2* 11.1 9.2 RBC 4.41 3.44* 3.52* HGB 12.9* 10.1* 10.3* HCT 37.2* 30.7* 31.9* MCV 84.4 89.2 90.6 MCH 29.3 29.4 29.3 MCHC 34.7 32.9 32.3 RDW 13.6 14.2 14.2 PLT 201 158 162 MPV 10.9 10.3 10.7 Last 3 Blood Glucose: Recent Labs 01/19/24 1353 01/19/24 1913 01/20/24 0140 01/20/24 0336 01/20/24 1007 01/20/24165601/20/24202601/21/24 0452 GLUCOSE 208* 257* 135* 180* 186* 244* 211* 287* PT/INR: Lab Results Component Value Date/Time PROTIME 13.8 01/19/2024 01:53 PM INR 1.1 01/19/2024 01:53 PM PTT: Lab Results Component Value Date/Time APTT 23.4 01/19/2024 01:53 PM Comprehensive Metabolic Profile: Recent Labs 01/18/24 2245 01/19/24 0445 01/20/24165601/20/24202601/21/24 0452 NA 131* < > 137 135* 136 K 4.7 < > 4.4 4.0 4.2 CL 95* < > 106 107 105 CO2 22 < > 18* 16* 18* BUN 44* < > 33* 32* 29* CREATININE 1.7* < > 1.6* 1.5* 1.5* GLUCOSE 242* < > 244* 211* 287* CALCIUM 9.3 < > 8.3* 8.0* 7.9* PROT 7.0 -- -- -- -- LABALBU 3.9 -- -- -- -- BILITOT 0.2* -- -- -- -- ALKPHOS 105 -- -- -- -- AST 16 -- -- -- -- ALT 18 -- -- -- -- < > = values in this interval not displayed. Magnesium: Lab Results Component Value Date/Time MG 1.9 01/21/2024 04:52 AM MG 1.8 01/20/2024 08:27 PM MG 1.9 01/20/2024 04:57 PM Phosphorus: Lab Results Component Value Date/Time PHOS 3.9 01/21/2024 04:52 AM PHOS 1.9 01/20/2024 08:27 PM PHOS 2.4 01/20/2024 04:57 PM Ionized Calcium: Lab Results Component Value Date/Time CAION 1.13 01/19/2024 09:21 AM Urinalysis: Lab Results Component Value Date/Time NITRU NEGATIVE 01/19/2024 09:11 AM COLORU Yellow 01/19/2024 09:11 AM PHUR 5.5 01/19/2024 09:11 AM WBCUA 2 TO 5 01/19/2024 09:11 AM RBCUA 5 TO 10 01/19/2024 09:11 AM MUCUS NOT REPORTED 10/27/2021 12:50 PM TRICHOMONAS NOT REPORTED 10/27/2021 12:50 PM YEAST NOT REPORTED 10/27/2021 12:50 PM BACTERIA None 01/19/2024 09:11 AM SPECGRAV 1.033 01/19/2024 09:11 AM LEUKOCYTESUR NEGATIVE 01/19/2024 09:11 AM UROBILINOGEN Normal 01/19/2024 09:11 AM BILIRUBINUR NEGATIVE 01/19/2024 09:11 AM GLUCOSEU 3+ 01/19/2024 09:11 AM KETUA MODERATE 01/19/2024 09:11 AM AMORPHOUS NOT REPORTED 10/27/2021 12:50 PM HgBA1c: Lab Results Component Value Date/Time LABA1C 12.0 01/19/2024 04:45 AM TSH: Lab Results Component Value Date/Time TSH 0.58 01/19/2024 07:38 AM Lactic Acid: Lab Results Component Value Date/Time LACTA 2.2 01/19/2024 01:48 AM LACTA 2.8 01/18/2024 11:00 PM LACTA 2.0 10/27/2021 11:35 AM Troponin: No results for input(s): TROPONINI in the last 72 hours. Radiology/Imaging: MRI BRAIN W WO CONTRAST Final Result 1. High FLAIR signal changes are seen in the perimesencephalic cistern and bilateral cerebral convexities. Patient is intubated. The finding could represent manifestation of increased oxygen tension in the CSF versus less likely due early meningitis versus remote subarachnoid hemorrhage. These findings are nonspecific, but can be seen in the setting of meningitis. Correlation with CSF sampling is recommended. 2. No abnormal focus on brain or meningeal enhancement. IR LUMBAR PUNCTURE FOR DIAGNOSIS Final Result Successful fluoroscopic-guided lumbar puncture. XR ABDOMEN FOR NG/OG/NE TUBE PLACEMENT Final Result Enteric catheter tip in region of gastric body and side-port in gastric fundus XR CHEST PORTABLE Final Result Endotracheal tube tip overlies the distal thoracic trachea. XR CHEST PORTABLE Final Result No acute process. ASSESSMENT: Patient Active Problem List Diagnosis Date Noted Hypertensive encephalopathy 01/19/2024 Hypertensive emergency 01/19/2024 Fever 01/19/2024 Altered mental status 01/19/2024 Encephalopathy acute 01/19/2024 Hypertensive urgency 01/19/2024 Lactic acidosis 01/19/2024 Bacteremia due to Staphylococcus aureus Sinus tachycardia Mild malnutrition (HCC) 10/28/2021 Diabetic acidosis without coma (HCC) 10/27/2021 PLAN: WEAN PER PROTOCOL: [] No [] Yes [x] N/A ICU PROPHYLAXIS: Stress ulcer: [x] PPI Agent [] Q5Creoj [] Sucralfate [] Other: VTE: [] Enoxaparin [x] Unfract. Heparin Subcut [] EPC Cuffs NUTRITION: [] NPO [] Tube Feeding [] TPN [x] PO HOME MEDS RECONCILED: [x] No [] Yes CONSULTATION NEEDED: [] No [x] Yes FAMILY UPDATED: [] No [x] Yes TRANSFER OUT OF ICU: [x] No [] Yes Plan: Neurologic: Altered mental status CT head, CTA head/neck 01/18 negative, no TNK per EtOH and UDS negative Thiamine, folate MRI 01/18 : nonspecific findings that can be seen in meningitis or secondary to increased oxygen tension in CSF s/p intubation CSF culture pending CSF meningitis panel negative Central apnea Sedation : Cardiovascular: Hypertensive emergency SBP 250 at outlying facility Cardene gtt weaned off SBP goal < 180 Pulmonary: O2 sat 90s on room air Renal/Fluid/Electrolyte: T2DM w/ DKA Beta-hydroxybutyrate 3.37 Insulin gtt UA w/ moderate ketones, negative nitrites and LE Lab Results Component Value Date/Time NA 136 01/21/2024 04:52 AM K 4.2 01/21/2024 04:52 AM CL 105 01/21/2024 04:52 AM CO2 18 (L) 01/21/2024 04:52 AM BUN 29 (H) 01/21/2024 04:52 AM CREATININE 1.5 (H) 01/21/2024 04:52 AM Intake/Output Summary (Last 24 hours) at 01/21/2024 0810 Last data filed at 01/21/2024 0647 Gross per 24 hour Intake 3322.86 ml Output 2945 ml Net 377.86 ml GI/Nutrition: Diet : NPO Vomiting at OSH Glycolax prn Prophylaxis : PPI ID: Afebrile at OSH, resolved fever here ID following RPP negative Blood cultures NGTD CSF meningitis panel negative, culture pending Antimicrobials : acyclovir, rocephin, vancomycin, narrow as labs result Lab Results Component Value Date/Time WBC 9.2 01/21/2024 04:52 AM WBC 11.1 01/20/2024 03:36 AM WBC 13.2 (H) 01/19/2024 04:45 AM Temp (24hrs), Av.6 F (37.6 C), Min:98.6 F (37 C), Max:101.4 F (38.6 C) Hematology: Monitor for evidence of bleeding Transfuse for Hgb < 7 or clinically indicated Lab Results Component Value Date/Time HGB 10.3 (L) 01/21/2024 04:52 AM HGB 10.1 (L) 01/20/2024 03:36 AM HCT 31.9 (L) 01/21/2024 04:52 AM HCT 30.7 (L) 01/20/2024 03:36 AM Endocrine: T2DM w/ DKA Glucose high 500s upon arrival BHB 3.37 Insulin gtt DKA protocol A1c 12 Prophylaxis: DVT : heparin GI : PPI Angel Sun MD Emergency Medicine Resident, PGY-1 01/21/2024 8:10 AM Attending Physician Statement I have discussed the care of José Luis Gorman, including pertinent history and exam findings with the resident. I have reviewed the swartz elements of all parts of the encounter with the resident. I have seen and examined the patient with the resident. I agree with the assessment and plan and status of the problem list as documented. I saw the patient during the rounds this morning overnight events noted. He is systolic blood pressure between 140 and 150. He was started on Coreg 6.25 twice daily avoiding lisinopril as he might have ABHIJIT but possibility of CKD is not completely excluded. He is blood sugar is higher than 200 he was started on low-dose of Lantus last night. He is eating and drinking better now and we will change Lantus to 15 units at night. He is currently on cefepime and other antibiotics were discontinued. He is alert and awake and follows command no complaints currently. Will continue with cefepime and antibiotic adjustment per infectious disease. Discontinue IV fluid Will transfer patient to medicine floor with medicine team and once on the floor critical care team will sign off. Discussed with nursing staff, treatment and plan discussed. Total critical care time caring for this patient with life threatening, unstable organ failure, including direct patient contact, management of life support systems, review of data including imaging and labs, discussions with other team members and physicians at least 30 Min so far today, excluding procedures. Please note that this chart was generated using voice recognition [employer] dictation software. Although every effort was made to ensure the accuracy of this automated hse manager, some errors in hse manager may have occurred. Sarmad Daly MD 01/21/2024 11:57 AM Images from the original note were not included. [facility] Neurology IN-PATIENT SERVICE NEUROLOGY PROGRESS NOTE Date: 01/20/2024 Patient name: José Luis Gorman Date of admission: 01/19/2024 Date of : 1975 Interval History: Patient is awake, intubated off sedation for the last couple of hours. He is following commands nodding and shaking head appropriately. Appears to be overall improved from a neurologic standpoint. No further fevers noted. MRI brain with unusual appearance of hyperintensity in the perimesencephalic cistern as well as up higher in the bilateral frontal parietal regions which could be seen in the setting of SAH versus meningitis neither of which are supported by current CSF results. History of Present Illness: The patient is a 48 y.o. male who presents with headache. . The patient was seen and examined and the chart was reviewed. Initially presented to [facility] on 01/17 evening due to persistent headache. Reportedly at [facility] patient worsened as far as his mentation becoming more confused, agitated requiring transfer to [place]. He was significantly hypertensive prompting medical ICU admission for Cardene drip and blood pressure control. On the morning of 01/18 he continued to worsen requiring intubation. Also developing a fever prompting infectious workup. Past Medical History: Past Medical History: Diagnosis Date Diabetes mellitus (HCC) Past Surgical History: Past Surgical History: Procedure Laterality Date APPENDECTOMY LEG SURGERY Right 10/30/2021 right intrarticular hip aspiration under fluro performed by Paulina Kuhn DO at [facility] OR Medications during admission: cefTRIAXone (ROCEPHIN) IV 2,000 mg IntraVENous Q24H sodium chloride flush 5-40 mL IntraVENous 2 times per day heparin (porcine) 5,000 Units SubCUTAneous 3 times per day [Held by provider] insulin glargine 50 Units SubCUTAneous Daily insulin regular 1-20 Units IntraVENous Once insulin regular 14 Units IntraVENous Once pantoprazole (PROTONIX) 40 mg in sodium chloride (PF) 0.9 % 10 mL injection 40 mg IntraVENous Daily folic acid 1 mg, thiamine (B-1) 100 mg in sodium chloride 0.9 % 50 mL IVPB IntraVENous Daily chlorhexidine 15 mL Mouth/Throat BID Physical Exam: BP 136/83 Pulse 74 Temp 98 F (36.7 C) (Oral) Resp 12 Ht 1.778 m (5' 10 ) Wt 89.7 kg (197 lb 12.8 oz) SpO2 100% BMI 28.38 kg/m Temp (24hrs), Av.1 F (36.7 C), Min:97.4 F (36.3 C), Max:98.6 F (37 C) Neurological examination: Mental status Patient is intubated. Off sedation. Wide-awake. He will nod head yes and shake head no appropriately. He is following commands. Cranial nerves Pupil response: Present Oculocephalic reflex: Present Corneal Reflex: Present Facial grimace to pin: Present Gag/Cough reflex: Present Breathing above vent: Present Motor and sensory function Giving thumbs up bilaterally. Squeezing hands bilaterally. Wiggling toes bilaterally. Tone: Normal DTR 2/4 throughout (-) Freitas's sign bilaterally Gait Not tested Diagnostics: Laboratory Testing: CBC: Recent Labs 01/18/24 2245 01/19/24 0445 01/20/24 0336 WBC 8.6 13.2* 11.1 HGB 13.0 12.9* 10.1* PLT 212 201 158 BMP: Recent Labs 01/20/24 0140 01/20/24 0336 01/20/24 1007 NA 137 135* 136 K 4.0 4.3 4.0 CL 106 105 106 CO2 21 21 20 BUN 40* 41* 39* CREATININE 1.6* 1.6* 1.6* GLUCOSE 135* 180* 186* Lab Results Component Value Date CHOL 136 10/31/2021 LDLCHOLESTEROL 77 10/31/2021 HDL 31 (L) 10/31/2021 TRIG 62 01/20/2024 ALT 18 01/18/2024 AST 16 01/18/2024 TSH 0.58 01/19/2024 INR 1.1 01/19/2024 LABA1C 12.0 (H) 01/19/2024 MG 1.9 01/20/2024 PHOS 3.3 01/20/2024 Imaging/Diagnostics: MRI BRAIN W WO CONTRAST Narrative EXAMINATION: MRI OF THE BRAIN WITHOUT AND WITH CONTRAST 01/19/2024 3:13 pm TECHNIQUE: Multiplanar multisequence MRI of the head/brain was performed without and with the administration of intravenous contrast. COMPARISON: CT scan January 18, 2024. HISTORY: ORDERING SYSTEM PROVIDED HISTORY: rule out encephalitis TECHNOLOGIST PROVIDED HISTORY: rule out encephalitis What is the sedation requirement?->None Reason for Exam: rule out encephalitis FINDINGS: INTRACRANIAL STRUCTURES/VENTRICLES: There is no acute infarct. No mass effect or midline shift. No evidence of an acute intracranial hemorrhage. The ventricles and sulci are normal in size and configuration. The sellar/suprasellar regions appear unremarkable. The normal signal voids within the major intracranial vessels appear maintained. No abnormal focus on brain or meningeal enhancement is seen. High FLAIR signal changes are seen in the perimesencephalic cistern and bilateral cerebral convexities. ORBITS: The visualized portion of the orbits demonstrate no acute abnormality. SINUSES: The visualized paranasal sinuses and mastoid air cells demonstrate no acute abnormality. BONES/SOFT TISSUES: The bone marrow signal intensity appears normal. The soft tissues demonstrate no acute abnormality. Impression 1. High FLAIR signal changes are seen in the perimesencephalic cistern and bilateral cerebral convexities. Patient is intubated. The finding could represent manifestation of increased oxygen tension in the CSF versus less likely due early meningitis versus remote subarachnoid hemorrhage. These findings are nonspecific, but can be seen in the setting of meningitis. Correlation with CSF sampling is recommended. 2. No abnormal focus on brain or meningeal enhancement. CT Head W/O Contrast Narrative EXAMINATION: CT OF THE HEAD WITHOUT CONTRAST 01/18/2024 9:46 pm TECHNIQUE: CT of the head was performed without the administration of intravenous contrast. Automated exposure control, iterative reconstruction, and/or weight based adjustment of the mA/kV was utilized to reduce the radiation dose to as low as reasonably achievable. COMPARISON: Noncontrast CT scan of the head on 04/19/2022. HISTORY: ORDERING SYSTEM PROVIDED HISTORY: Stroke alert, left-sided symptoms, aphasia, headache, mild change in sensation TECHNOLOGIST PROVIDED HISTORY: Stroke alert, left-sided symptoms, aphasia, headache, mild change in sensation Decision Support Exception - unselect if not a suspected or confirmed emergency medical condition->Emergency Medical Condition (MA) FINDINGS: BRAIN/VENTRICLES: There is no acute intracranial hemorrhage, mass effect or midline shift. No abnormal extra-axial fluid collection. The winkler-white differentiation is maintained without evidence of an acute infarct. There is no evidence of hydrocephalus. ORBITS: The visualized portion of the orbits demonstrate no acute abnormality. SINUSES: In the right sphenoidal sinus there is a small oval masslike structure with partial calcification measuring 1.76 x 1.01 cm, likely to be sequela of chronic sinusitis, and it is unchanged as compared to previous CT scan on 04/19/2022. SOFT TISSUES/SKULL: No acute abnormality of the visualized skull or soft tissues. Impression No acute intracranial abnormality. No intracranial hemorrhage. The preliminary report was conveyed verbally to Dr. Steve Estrada, by CORE associate,Daija Benson at 11:07 p.m. on 01/18/2024. CTA head and neck: No significant stenosis or occlusion. I personally reviewed all of the above medications, clinical laboratory, imaging and other diagnostic tests. Impression: Acute encephalopathy of unclear etiology; CSF studies noninfectious, as well as no RBC to suggest SAH. Acute respiratory failure Hypertensive emergency Similar admission 3 months ago at [facility] with acute respiratory failure in the setting of agitation and hypertensive crisis Plan: Patient is significantly improved today off of sedation following commands. MRI of the brain gives appearance of hyperintensity in the perimesencephalic region as well as higher cerebral convexities which which typically would be a pattern more consistent with SAH. Although with 0 RBCs and no xanthochromia on CSF this is considered much less likely. Meningitis is also ruled out with negative WBCs in CSF. CTA did not reveal any vascular abnormalities. Upon chart review he was at [facility] back in September with similar type of presentation acute delirium, agitation requiring intubation and acute respiratory failure. Eventually was extubated and left AMA. At that time MRI brain was reported as normal. Critical care recommendations Continued blood pressure management Will follow Addy Brown DO [facility] Neurology Images from the original note were not included. [facility] Progress Note José Luis Gorman Date: 01/20/2024 LOS: 1 Reason for F/U : Possible meningitis Impression : Altered mental status concern for toxic metabolic encephalopathy versus primary HYBRID CORN BREEDER process Respiratory failure-intubated for airway protection Diabetes mellitus type 2 poorly controlled-currently on insulin Hypertensive emergency responded well to Cardene drip and has been able to wean off of it Concern for stroke given left-sided facial droop, dysarthria Chronic kidney disease stage III History of substance abuse Recommendations: The CSF findings are not consistent with a primary HYBRID CORN BREEDER infection and therefore the antimicrobial therapy will be narrowed to Rocephin alone The blood culture data thus far remains negative The patient's mentation is markedly improved he is awake and alert following commands and no focal deficits appreciated I will continue to follow his progress and adjust therapy accordingly Infection Control Recommendations: [place] precautions Discharge Planning: Estimated Length of IV antimicrobials: To be determined Patient will need Midline Catheter Insertion/ PICC line Insertion: No Patient will need: Home IV , Infusion Center, SNF, LTAC: Undetermined Patient willneed outpatient wound care: No Medical Decision making / Summary of Stay: José Luis Gorman is a 48 y.o.-year-old male who was initially admitted on 01/19/2024. José Luis is seen and evaluated at bedside he is awake and does moan to his name and is somewhat agitated has a sitter in the room. Unfortunately he is not able to give me any history and the history is obtained from reviewing the chart. He has a history of diabetes mellitus type 2, chronic kidney disease stage III, polysubstance abuse, and prior admissions for acute delirium/agitation in September 2023. 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 The patient presented to the emergency department with a headache, slurred speech and left-sided weakness and the blood pressure was noted to be extremely elevated. The patient was admitted with hypertensive crisis/encephalopathy and his mentation continued to worsen while he was hospitalized became agitated. The patient was evaluated by the stroke team and had a CT of the head and CTA of the head and neck that were unremarkable. Blood glucose level was 500 and systolic blood pressure was 240 prompting transfer here to [facility] The patient continued to get increasingly confused, was vomiting intractably, did require Cardene drip with improvement in his blood pressure. The patient was started on insulin drip and the Cardene drip was subsequently stopped. The patient was febrile to 101 and I been asked to evaluate as there is concern for meningitis, PRESS syndrome and the patient has been started empirically on antimicrobial therapy with Rocephin, vancomycin, and acyclovir. I was asked to evaluate and help with antibiotic management. Current evaluation:01/20/2024 BP 100/64 Pulse 68 Temp 98 F (36.7 C) Resp 16 Ht 1.778 m (5' 10 ) Wt 89.7 kg (197 lb 12.8 oz) SpO2 100% BMI 28.38 kg/m Temperature Range: Temp: 98 F (36.7 C) Temp Av.3 F (36.8 C) Min: 97.4 F (36.3 C) Max: 99.2 F (37.3 C) The patient is seen and evaluated at bedside and he is on the ventilator at 30% FiO2 currently on Precedex for sedation but he is awake and alert following commands and does not report any pain He was taken to interventional radiology underwent fluoroscopy guided lumbar puncture at L3-L4 with 12 mL of clear CSF obtained The patient underwent an MRI of the brain that showed high FLAIR signal changes in the perimesencephalic cistern and bilateral cerebral convexities which is a nonspecific finding Review of Systems Unable to perform ROS: Intubated Physical Examination : Physical Exam Constitutional: Appearance: He is well-developed. Interventions: He is sedated, intubated and restrained. HENT: Head: Normocephalic and atraumatic. Cardiovascular: Rate and Rhythm: Normal rate. Heart sounds: Normal heart sounds. No friction rub. No gallop. Pulmonary: Effort: Pulmonary effort is normal. He is intubated. Breath sounds: Normal breath sounds. No wheezing. Abdominal: General: Bowel sounds are normal. Palpations: Abdomen is soft. There is no mass. Tenderness: There is no abdominal tenderness. Musculoskeletal: Cervical back: Neck supple. Lymphadenopathy: Cervical: No cervical adenopathy. Skin: General: Skin is warm and dry. Neurological: Mental Status: He is alert. Comments: He is alert and following some commands and moving all extremities Laboratory data: I have independently reviewed the followinglabs: CBC with Differential: Recent Labs 01/19/24 0445 01/20/24 0336 WBC 13.2* 11.1 HGB 12.9* 10.1* HCT 37.2* 30.7* PLT 201 158 LYMPHOPCT 6* 10* MONOPCT 1* 6 BMP: Recent Labs 01/20/24 0140 01/20/246 NA 137 135* K 4.0 4.3 CL 106 105 CO2 21 21 BUN 40* 41* CREATININE 1.6* 1.6* MG 2.0 2.0 Hepatic Function Panel: Recent Labs 01/18/24 2245 PROT 7.0 LABALBU 3.9 BILIDIR <0.1 IBILI Can not be calculated BILITOT 0.2* ALKPHOS 105 ALT 18 AST 16 Lab Results Component Value Date/Time PROCAL 0.15 01/19/2024 01:53 PM Lab Results Component Value Date/Time CRP 3.7 01/19/2024 04:45 AM CRP 198.9 10/31/2021 05:34 AM CRP 272.6 10/30/2021 05:45 AM Lab Results Component Value Date SEDRATE 28 (H) 01/19/2024 No results found for: DDIMER No results found for: FERRITIN No results found for: LDH No results found for: FIBRINOGEN Results in Past 30 Days Result Component Current Result Ref Range Previous Result Ref Range SARS-CoV-2, PCR Not Detected (01/19/2024) Not Detected Not in Time Range Lab Results Component Value Date/Time COVID19 Not Detected 01/19/2024 09:09 AM COVID19 Not Detected 10/27/2021 11:36 AM No results for input(s): VANCOTROUGH in the last 72 hours. Component Ref Range & Units 01/19/24 1556 Volume, CSF mL 12 Appearance, CSF Clear Xanthochromia ABSENT WBC, CSF <5 cells/uL 0 RBC, CSF 0 cells/uL 0 Tube Number, CSF 3 [place]ing [place] [facility] [place]: 01/19/24 15:56 EDT Last Resulted: 01/19/24 18:24 EDT Imaging Studies: MRI OF THE BRAIN WITHOUT AND WITH CONTRAST 01/19/2024 3:13 pm IMPRESSION: 1. High FLAIR signal changes are seen in the perimesencephalic cistern and bilateral cerebral convexities. Patient is intubated. The finding could represent manifestation of increased oxygen tension in the CSF versus less likely due early meningitis versus remote subarachnoid hemorrhage. These findings are nonspecific, but can be seen in the setting of meningitis. Correlation with CSF sampling is recommended. 2. No abnormal focus on brain or meningeal enhancement. Specimen Collected: 01/19/24 17:46 EDT Last Resulted: 01/19/24 17:53 EDT Cultures: Procedure Component Value Units Date/Time Culture, CSF [[id number]] Collected: 01/19/24 1553 Order Status: Completed Specimen: CSF Updated: 01/20/24 0730 Specimen Description .CSF Direct Exam RARE NEUTROPHILS NO ORGANISMS SEEN Gram stain made from cytocentrifuged specimen. Organisms and cells will be concentrated. Culture NO GROWTH 15 HOURS Culture, Blood 1 [[id number]] Collected: 01/19/24 0814 Order Status: Completed Specimen: Blood Updated: 01/19/242117 Specimen Description .BLOOD Special Requests R HAND 5 ML Culture NO GROWTH 12 HOURS Culture, Blood 1 [[id number]] Collected: 01/19/24 0810 Order Status: Completed Specimen: Blood Updated: 01/19/242113 Specimen Description .BLOOD Special Requests L HAND 5 ML Culture NO GROWTH 12 HOURS Meningitis Encephalitis Panel CSF, Molecular [[id number]] Collected: 01/19/24 1556 Order Status: Completed Specimen: CSF Updated: 01/19/24 1848 Specimen Description .CSF ESCHERICHIA COLI K1 CSF FILM ARRAY Not Detected HAEMOPHILUS INFLUENZA CSF FILM ARRAY Not Detected LISTERIA MONOCYTOGENES CSF FILM ARRAY Not Detected NEISSERIA MENIGITIDIS CSF FILM ARRAY Not Detected STREPTOCOCCUS AGALACTIAE CSF FILM ARRAY Not Detected STREPTOCOCCUS PNEUMONIAE CSF FILM ARRAY Not Detected CYTOMEGALOVIRUS (CMV) CSF FILM ARRAY Not Detected ENTEROVIRUS CSF FILM ARRAY Not Detected HSV-1 CSF FILM ARRAY Not Detected HSV-2 CSF FILM ARRAY Not Detected HHV-6 (HERPESVIRUS 6) CSF FILM ARRAY Not Detected PARECHOVIRUS CSF FILM ARRAY Not Detected VARICELLA-ZOSTER CSF FILM ARRAY Not Detected CRYPTOCOCCUS NEOFORMANS/RADHA CSF FILM ARR. Not Detected Comment: Performed by multiplexed nucleic acid assay. VDRL CSF [[id number]] Collected: 01/19/24 1556 Order Status: Sent Specimen: CSF Updated: 01/19/24 1557 Lyme Disease AB, CSF [[id number]] Collected: 01/19/24 1556 Order Status: Sent Specimen: CSF Updated: 01/19/24 1557 West Nile Virus, CSF [[id number]] Collected: 01/19/24 1556 Order Status: Sent Specimen: CSF Updated: 01/19/24 1557 Herpes simplex virus PCR [[id number]] Collected: 01/19/24 1548 Order Status: Sent Specimen: CSF Updated: 01/19/24 1548 Gram stain CSF [[id number]] Collected: 01/19/24 1546 Order Status: Canceled Specimen: Spinal Fluid Culture, Respiratory [[id number]] Order Status: No result Specimen: Endotracheal Respiratory Panel, Molecular, with COVID-19 (Restricted: peds pts or suitable admitted adults) [[id number]] Collected: 01/19/24 0909 Order Status: Completed Specimen: Nasopharyngeal Swab Updated: 01/19/24 1049 Specimen Description .NASOPHARYNGEAL SWAB Adenovirus PCR Not Detected Coronavirus 229E PCR Not Detected Coronavirus HKU1 PCR Not Detected Coronavirus NL63 PCR Not Detected Coronavirus OC43 PCR Not Detected SARS-CoV-2, PCR Not Detected Human Metapneumovirus PCR Not Detected Rhino/Enterovirus PCR Not Detected Influenza A by PCR Not Detected Influenza B by PCR Not Detected Parainfluenza 1 PCR Not Detected Parainfluenza 2 PCR Not Detected Parainfluenza 3 PCR Not Detected Parainfluenza 4 PCR Not Detected Resp Syncytial Virus PCR Not Detected Bordetella parapertussis by PCR Not Detected B Pertussis by PCR Not Detected Chlamydia pneumoniae By PCR Not Detected Mycoplasma pneumo by PCR Not Detected Comment: Performed by multiplexed nucleic acid assay. Culture, Urine [[id number]] Collected: 01/19/24 0911 Order Status: Sent Specimen: Urine, straight catheter Updated: 01/19/24 0911 MRSA DNA Probe, Nasal [[id number]] Collected: 01/19/24 0437 Order Status: Completed Specimen: Nasal Updated: 01/19/24 0853 Specimen Description .NASAL SWAB MRSA, DNA, Nasal NEGATIVE Comment: NEGATIVE: MRSA DNA not detected by nucleic acid amplification. Results should be used as an adjunct to nosocomial control efforts to identify patients needing enhanced precautions. The test is not intended to identify patients with staphylococcal infections. Results should not be used to guide or monitor treatment for MRSA infections. Medications: sodium chloride flush 5-40 mL IntraVENous 2 times per day heparin (porcine) 5,000 Units SubCUTAneous 3 times per day [Held by provider] insulin glargine 50 Units SubCUTAneous Daily insulin regular 1-20 Units IntraVENous Once insulin regular 14 Units IntraVENous Once pantoprazole (PROTONIX) 40 mg in sodium chloride (PF) 0.9 % 10 mL injection 40 mg IntraVENous Daily folic acid 1 mg, thiamine (B-1) 100 mg in sodium chloride 0.9 % 50 mL IVPB IntraVENous Daily acyclovir 10 mg/kg IntraVENous Q8H vancomycin 750 mg IntraVENous Q12H vancomycin (VANCOCIN) intermittent dosing (placeholder) Other RX Placeholder cefTRIAXone (ROCEPHIN) IV 2,000 mg IntraVENous Q12H chlorhexidine 15 mL Mouth/Throat BID [facility] Saturnino Angel MD [employer] OFFICE: Thank you for allowing us to participate in the care of this patient. Please call with questions. This note is created with the assistance of a speech recognition program. While intending to generate a document that actually reflects the content of the visit, the document can still have some errors including those of syntax and sound a like substitutions which may escape proof reading. In such instances, actual meaning can be extrapolated by contextual diversion. INTENSIVE CARE UNIT Resident Physician Progress Note Patient - José Luis Gorman Date of Admission - 01/19/2024 3:48 AM Date of Evaluation - 01/20/2024 Room and Bed Number - 3002/3002-01 Hospital Day - 1 HPI: History was obtained from chart review and the patient. José Luis Gorman is a 48 y.o. male with a past medical history of diabetes and untreated hypertension Patient originally presented to [facility] with complaints of high sugars and a headache that was ongoing for 1-2 days. Additionally he was noted to have left-sided facial droop, left-sided deficits, and concern for possible dysarthria, telestroke was consulted and CT head and CTA head and neck were performed and were unremarkable. He was also noted to have a blood pressure in the 240s, was started on Cardene drip with improvement of his pressures. Patient was transferred to [facility] ICU for further care and neuro evaluation. On my discussion, patient was very somnolent took repeated measures to arouse the patient to try and get answers to questioning. He was sent on Cardene drip however pressures have been adequately controlled. When he arrived here his sugars were noted to be in the 500s, he was started on insulin drip per ICU protocol. There was also some concern for withdrawals, I did not witness this but the RN was telling me that he noticed some tremulousness and tachycardia. Patient chews tobacco, denies smoking tobacco, denied alcohol, denied drug use. 01/18: Daughter contacted, who lives with him, reports his baseline mentation is normal, if not more reserved and shy. She states that he drinks but not daily or in excess. She denies any drug use. Upon arrival, pt moving all extremities equally, would occasionally mumble responses to questions but otherwise uncooperative, not following commands. Pt appears to be having central apnea, intubated for airway protection. New fever while in department. Concern for HYBRID CORN BREEDER infection. MRI and LP pending. SUBJECTIVE: OVERNIGHT EVENTS: No overnight events. TODAY: Pt examined. He is intubated, sedation off. He opens eyes to name and follows commands. Gives thumbs up, nods to questioning. Confirms that he has not been taking his antihypertensives nor insulin consistently. Does not complain of any pain at this time other than discomfort from the tube. AWAKE & FOLLOWING COMMANDS: [] No [x] Yes SECRETIONS Amount: [] Small [] Moderate [] Large [x] None Color: [] White [] Colored [] Bloody SEDATION: RAAS Score: [x] Propofol gtt [] Versed gtt [] Ativan gtt [] No Sedation PARALYZED: [x] No [] Yes VASOPRESSORS: [x] No [] Yes [] Levophed [] Dopamine [] Vasopressin [] Dobutamine [] Phenylephrine [] Epinephrine OBJECTIVE: VITAL SIGNS: BP 100/64 Pulse 69 Temp 98 F (36.7 C) Resp 12 Ht 1.778 m (5' 10 ) Wt 89.7 kg (197 lb 12.8 oz) SpO2 100% BMI 28.38 kg/m Tmax over 24 hours: Temp (24hrs), Av.3 F (36.8 C), Min:97.4 F (36.3 C), Max:99.2 F (37.3 C) Patient Vitals for the past 8 hrs: BP Temp Temp src Pulse Resp SpO2 Weight 01/20/24 0842 -- -- -- 69 12 100 % -- 01/20/24 0803 -- -- -- 68 16 100 % -- 01/20/24 0800 -- 98 F (36.7 C) -- -- -- -- -- 01/20/24 0630 100/64 -- -- 71 16 100 % -- 01/20/24 0600 97/63 -- -- 71 16 100 % 89.7 kg (197 lb 12.8 oz) 01/20/24 0530 95/ -- -- 73 16 100 % -- 01/20/24 0500 98/60 -- -- 74 16 100 % -- 01/20/24 0449 -- -- -- -- -- 100 % -- 01/20/24 0430 -- -- 75 16 100 % -- 01/20/24 0400 9961 98.6 F (37 C) Oral 74 16 100 % -- 01/20/24 0333 -- -- -- -- -- 100 % -- 01/20/24 0330 99/62 -- -- 73 16 100 % -- 01/20/24 0307 -- -- -- 73 16 100 % -- 01/20/24 0300 96/60 -- -- 73 16 100 % -- 01/20/24 0230 110/68 -- -- 75 16 100 % -- 01/20/24 0216 -- -- -- -- -- 100 % -- 01/20/24 0200 (!) 143/80 -- -- 80 21 100 % -- 01/20/24 0130 130/76 -- -- 72 16 100 % -- Intake/Output Summary (Last 24 hours) at 01/20/2024 0905 Last data filed at 01/20/2024 0649 Gross per 24 hour Intake 6801.05 ml Output 1775 ml Net 5026.05 ml Date 01/20/24 0000 - 01/20/24 2359 Shift 6592-0112 8767-3252 5729-8651 24 Hour Total INTAKE I.V.(mL/kg) 1365.5(15.2) 1365.5(15.2) IV Piggyback(mL/kg) 500(5.6) 500(5.6) Shift Total(mL/kg) 1865.5(20.8) 1865.5(20.8) OUTPUT Emesis/NG output(mL/kg) 125(1.4) 125(1.4) Shift Total(mL/kg) 125(1.4) 125(1.4) Weight (kg) 89.7 89.7 89.7 89.7 Wt Readings from Last 3 Encounters: 01/20/24 89.7 kg (197 lb 12.8 oz) 01/18/24 86.2 kg (190 lb) 04/04/22 86.2 kg (190 lb) Body mass index is 28.38 kg/m . PHYSICAL EXAM: GEN: Intubated, sleepy but awakens to voice, responds to questioning EYES: pupils equal, round, and reactive to light, extra-ocular muscles intact HEENT: Normocephalic, without obvious abnormality LUNGS: Mechanically ventilated, good air exchange, and clear to auscultation CV: regular rate and rhythm and normal S1 and S2 ABDOMEN: soft, non-distended, and non-tender MSK: there is no redness, warmth, or swelling of the joints NEURO: Awake, alert, follows commands, moves all extremities equally SKIN: Scattered healing wounds to BLE MEDICATIONS: Scheduled Meds: cefTRIAXone (ROCEPHIN) IV 2,000 mg IntraVENous Q24H sodium chloride flush 5-40 mL IntraVENous 2 times per day heparin (porcine) 5,000 Units SubCUTAneous 3 times per day [Held by provider] insulin glargine 50 Units SubCUTAneous Daily insulin regular 1-20 Units IntraVENous Once insulin regular 14 Units IntraVENous Once pantoprazole (PROTONIX) 40 mg in sodium chloride (PF) 0.9 % 10 mL injection 40 mg IntraVENous Daily folic acid 1 mg, thiamine (B-1) 100 mg in sodium chloride 0.9 % 50 mL IVPB IntraVENous Daily chlorhexidine 15 mL Mouth/Throat BID Continuous Infusions: sodium chloride Stopped (01/19/24 1042) dextrose dextrose 5 % and 0.45 % NaCl 150 mL/hr at 01/20/24 08 propofol 20 mcg/kg/min (01/20/24648) midazolam dexmedeTOMIDine 0.4 mcg/kg/hr (01/20/24648) insulin 2.11 Units/hr (01/20/24 0815) PRN Meds: sodium chloride flush, 5-40 mL, PRN sodium chloride, , PRN potassium chloride, 20 mEq, PRN Or potassium chloride, 10 mEq, PRN magnesium sulfate, 2,000 mg, PRN ondansetron, 4 mg, Q8H PRN Or ondansetron, 4 mg, Q6H PRN polyethylene glycol, 17 g, Daily PRN acetaminophen, 650 mg, Q6H PRN Or acetaminophen, 650 mg, Q6H PRN glucose, 4 tablet, PRN dextrose bolus, 125 mL, PRN Or dextrose bolus, 250 mL, PRN glucagon (rDNA), 1 mg, PRN dextrose, , Continuous PRN promethazine, 6.25 mg, Q6H PRN [Held by provider] LORazepam, 1 mg, Q1H PRN Or [Held by provider] LORazepam, 1 mg, Q1H PRN Or [Held by provider] LORazepam, 2 mg, Q1H PRN Or [Held by provider] LORazepam, 2 mg, Q1H PRN potassium chloride, 10 mEq, PRN sodium phosphate 15 mmol in sodium chloride 0.9 % 250 mL IVPB, 15 mmol, PRN dextrose 5 % and 0.45 % NaCl, , Continuous PRN sodium chloride flush, 10 mL, PRN SUPPORT DEVICES: [x] Ventilator [] BIPAP [] Nasal Cannula [] Room Air VENT SETTINGS (Comprehensive) (if applicable): PRVC mode, Respiratory Rate 16, Tidal Volume 580, PEEP 5, FiO2 30% Vent Information Ventilator ID: [id number] Equipment Changed: Expiratory Filter, HME Vent Mode: (S) CPAP/PS Additional Respiratory Assessments Pulse: 69 Respirations: 12 SpO2: 100 % Humidification Source: HME Circuit Condensation: Drained DATA: Complete Blood Count: Recent Labs 01/18/24224401/19/2444401/20/24335 WBC 8.6 13.2* 11.1 RBC 4.39 4.41 3.44* HGB 13.0 12.9* 10.1* HCT 36.5* 37.2* 30.7* MCV 83.1 84.4 89.2 MCH 29.6 29.3 29.4 MCHC 35.6* 34.7 32.9 RDW 13.4 13.6 14.2 PLT 212 201 158 MPV 10.4 10.9 10.3 Last 3 Blood Glucose: Recent Labs 01/18/24224401/19/2444401/19/24135201/19/24191201/20/2413901/20/24 033 GLUCOSE 242* 530* 208* 257* 135* 180* PT/INR: Lab Results Component Value Date/Time PROTIME 13.8 01/19/2024 01:53 PM INR 1.1 01/19/2024 01:53 PM PTT: Lab Results Component Value Date/Time APTT 23.4 01/19/2024 01:53 PM Comprehensive Metabolic Profile: Recent Labs 01/18/24224401/19/2444401/19/24191201/20/2413901/20/24 0336 NA 131* < > 137 137 135* K 4.7 < > 3.8 4.0 4.3 CL 95* < > 105 106 105 CO2 22 < > 20 21 21 BUN 44* < > 41* 40* 41* CREATININE 1.7* < > 1.5* 1.6* 1.6* GLUCOSE 242* < > 257* 135* 180* CALCIUM 9.3 < > 8.2* 8.1* 7.9* PROT 7.0 -- -- -- -- LABALBU 3.9 -- -- -- -- BILITOT 0.2* -- -- -- -- ALKPHOS 105 -- -- -- -- AST 16 -- -- -- -- ALT 18 -- -- -- -- < > = values in this interval not displayed. Magnesium: Lab Results Component Value Date/Time MG 2.0 01/20/2024 03:36 AM MG 2.0 01/20/2024 01:40 AM MG 2.1 01/19/2024 07:13 PM Phosphorus: Lab Results Component Value Date/Time PHOS 3.9 01/20/2024 03:36 AM PHOS 3.9 01/20/2024 01:40 AM PHOS 3.8 01/19/2024 07:13 PM Ionized Calcium: Lab Results Component Value Date/Time CAION 1.13 01/19/2024 09:21 AM Urinalysis: Lab Results Component Value Date/Time NITRU NEGATIVE 01/19/2024 09:11 AM COLORU Yellow 01/19/2024 09:11 AM PHUR 5.5 01/19/2024 09:11 AM WBCUA 2 TO 5 01/19/2024 09:11 AM RBCUA 5 TO 10 01/19/2024 09:11 AM MUCUS NOT REPORTED 10/27/2021 12:50 PM TRICHOMONAS NOT REPORTED 10/27/2021 12:50 PM YEAST NOT REPORTED 10/27/2021 12:50 PM BACTERIA None 01/19/2024 09:11 AM SPECGRAV 1.033 01/19/2024 09:11 AM LEUKOCYTESUR NEGATIVE 01/19/2024 09:11 AM UROBILINOGEN Normal 01/19/2024 09:11 AM BILIRUBINUR NEGATIVE 01/19/2024 09:11 AM GLUCOSEU 3+ 01/19/2024 09:11 AM KETUA MODERATE 01/19/2024 09:11 AM AMORPHOUS NOT REPORTED 10/27/2021 12:50 PM HgBA1c: Lab Results Component Value Date/Time LABA1C 12.0 01/19/2024 04:45 AM TSH: Lab Results Component Value Date/Time TSH 0.58 01/19/2024 07:38 AM Lactic Acid: Lab Results Component Value Date/Time LACTA 2.2 01/19/2024 01:48 AM LACTA 2.8 01/18/2024 11:00 PM LACTA 2.0 10/27/2021 11:35 AM Troponin: No results for input(s): TROPONINI in the last 72 hours. Radiology/Imaging: MRI BRAIN W WO CONTRAST Final Result 1. High FLAIR signal changes are seen in the perimesencephalic cistern and bilateral cerebral convexities. Patient is intubated. The finding could represent manifestation of increased oxygen tension in the CSF versus less likely due early meningitis versus remote subarachnoid hemorrhage. These findings are nonspecific, but can be seen in the setting of meningitis. Correlation with CSF sampling is recommended. 2. No abnormal focus on brain or meningeal enhancement. XR ABDOMEN FOR NG/OG/NE TUBE PLACEMENT Final Result Enteric catheter tip in region of gastric body and side-port in gastric fundus XR CHEST PORTABLE Final Result Endotracheal tube tip overlies the distal thoracic trachea. XR CHEST PORTABLE Final Result No acute process. IR LUMBAR PUNCTURE FOR DIAGNOSIS (Results Pending) ASSESSMENT: Patient Active Problem List Diagnosis Date Noted Hypertensive encephalopathy 01/19/2024 Hypertensive emergency 01/19/2024 Fever 01/19/2024 Altered mental status 01/19/2024 Encephalopathy acute 01/19/2024 Hypertensive urgency 01/19/2024 Lactic acidosis 01/19/2024 Bacteremia due to Staphylococcus aureus Sinus tachycardia Mild malnutrition (HCC) 10/28/2021 Diabetic acidosis without coma (HCC) 10/27/2021 PLAN: WEAN PER PROTOCOL: [] No [x] Yes [] N/A ICU PROPHYLAXIS: Stress ulcer: [x] PPI Agent [] [id number] [] Sucralfate [] Other: VTE: [] Enoxaparin [x] Unfract. Heparin Subcut [] EPC Cuffs NUTRITION: [x] NPO [] Tube Feeding [] TPN [] PO HOME MEDS RECONCILED: [x] No [] Yes CONSULTATION NEEDED: [] No [x] Yes FAMILY UPDATED: [] No [x] Yes TRANSFER OUT OF ICU: [x] No [] Yes Plan: Neurologic: Altered mental status CT head, CTA head/neck 01/18 negative, no TNK per EtOH and UDS negative Thiamine, folate MRI 01/18 : nonspecific findings that can be seen in meningitis or secondary to increased oxygen tension in CSF s/p intubation CSF culture pending CSF meningitis panel negative Central apnea Sedation : propofol, precedex Cardiovascular: Hypertensive emergency SBP 250 at outlying facility Cardene gtt weaned off SBP goal < 180 Pulmonary: Intubated for airway protection PRVC 16 / 580 / 5 / 30% Wean Renal/Fluid/Electrolyte: T2DM w/ DKA Beta-hydroxybutyrate 3.37 Insulin gtt UA w/ moderate ketones, negative nitrites and LE Lab Results Component Value Date/Time NA 135 (L) 01/20/2024 03:36 AM K 4.3 01/20/2024 03:36 AM CL 105 01/20/2024 03:36 AM CO2 21 01/20/2024 03:36 AM BUN 41 (H) 01/20/2024 03:36 AM CREATININE 1.6 (H) 01/20/2024 03:36 AM Intake/Output Summary (Last 24 hours) at 01/20/2024 0905 Last data filed at 01/20/2024 0649 Gross per 24 hour Intake 6801.05 ml Output 1775 ml Net 5026.05 ml GI/Nutrition: Diet : NPO Vomiting at OSH Glycolax prn Prophylaxis : PPI ID: Afebrile at OSH, resolved fever here ID following RPP negative Blood cultures NGTD CSF meningitis panel negative, culture pending Antimicrobials : acyclovir, rocephin, vancomycin, narrow as labs result Lab Results Component Value Date/Time WBC 11.1 01/20/2024 03:36 AM WBC 13.2 (H) 01/19/2024 04:45 AM WBC 8.6 01/18/2024 10:45 PM Temp (24hrs), Av.3 F (36.8 C), Min:97.4 F (36.3 C), Max:99.2 F (37.3 C) Hematology: Monitor for evidence of bleeding Transfuse for Hgb < 7 or clinically indicated Lab Results Component Value Date/Time HGB 10.1 (L) 01/20/2024 03:36 AM HGB 12.9 (L) 01/19/2024 04:45 AM HCT 30.7 (L) 01/20/2024 03:36 AM HCT 37.2 (L) 01/19/2024 04:45 AM Endocrine: T2DM w/ DKA Glucose high 500s upon arrival BHB 3.37 Insulin gtt DKA protocol A1c 12 Prophylaxis: DVT : heparin GI : PPI Rachael Burns DO Emergency Medicine Resident, PGY-1 01/20/2024 9:05 AM Attending Physician Statement I have discussed the care of José Luis Gorman, including pertinent history and exam findings with the resident. I have reviewed the swartz elements of all parts of the encounter with the resident. I have seen and examined the patient with the resident. I agree with the assessment and plan and status of the problem list as documented. I saw the patient during the rounds today, chart reviewed overnight events noted. Patient had MRI done and there are some questionable finding neurology have discussed with neurocritical care also. Patient is alert and awake this morning hemodynamically stable blood pressure is much improved. Patient is on insulin drip and he is on D5 half saline His BUN is 39 creatinine is 1.6 bicarbonate is 20 anion gap is closed WBC 11 hemoglobin 10.1. CSF is so far negative except albumin is slightly elevated. CSF does not have any RBCs or WBCs. Encephalitis panel so far is negative. Patient is tolerating spontaneous breathing trial. Blood gases and ventilator support seen on this morning. Since patient is arousable he is on propofol and Precedex was weaned taken off propofol continue with Precedex and will extubate. Later we will bridge the insulin drip to Lantus and change IV fluids from D5 half saline to half saline once he started eating. Will determine the need for antihypertensive medication Discussed with the son at the bedside and explained to them about his compliance very high blood pressure and blood sugar on admission and diabetic ketoacidosis likely the cause of his encephalopathy. Discussed with nursing staff, treatment and plan discussed. Discussed with respiratory therapist. Total critical care time caring for this patient with life threatening, unstable organ failure, including direct patient contact, management of life support systems, review of data including imaging and labs, discussions with other team members and physicians at least 40 Min so far today, excluding procedures. Please note that this chart was generated using voice recognition [employer] dictation software. Although every effort was made to ensure the accuracy of this automated hse manager, some errors in hse manager may have occurred. Sarmad Daly MD 01/20/2024 1:22 PM Patient intubated with 3 RN's, RT, and two critical care residents at bedside. 20 mg of etomidate given at 1252 100 mg of succinylcholine given at 1252 Intubated at 1253 with positive color change and bilateral breath sounds 7.5 ETT, 25 at the lip Once intubation medications wore off, patient became very restless/agitated. Heart rate was in the 130's and SBP was in the 260's. Propofol bolus given per verbal order from Dr. Salmeron. Comprehensive Nutrition Assessment Type and Reason for Visit: Initial, Positive Nutrition Screen (Unsure Amount Weight Loss) Nutrition Recommendations/Plan: Continue NPO. Monitor plans for nutrition and plan of care. If nutrition support requested, suggest TF of Diabetic formula goal 45 mL/hr with current rate of propofol. Malnutrition Assessment: Malnutrition Status: Insufficient data (01/19/24 152) Context: Acute Illness Findings of the 6 clinical characteristics of malnutrition: Energy Intake: Mild decrease in energy intake Weight Loss: Unable to assess Body Fat Loss: Unable to assess Muscle Mass Loss: Unable to assess Fluid Accumulation: No significant fluid accumulation Pot Press Operator Strength: Not Performed Nutrition Assessment: Pt admitted for hypertensive emergency, headache, and high blood sugars. PMH: DM. Pt has been intubated. Propofol running at 15.9 mL/hr. Will monitor plans for nutrition and plan of care. Labs reviewed: Glucose 178-530 mg/dL, BUN 42 mg/dL, CR 1.6 mg/dL. Meds include: Insulin Drip. Nutrition Related Findings: Meds/Labs reviewed. Wound Type: None Current Nutrition Intake & Therapies: Average Meal Intake: NPO Average Supplements Intake: NPO Diet NPO Additional Calorie Sources: Propofol at 15.9 mL/hr = 420 kcals/day. Anthropometric Measures: Height: 177.8 cm (5' 10 ) [place] Body Weight (IBW): 166 lbs (75 kg) Admission Body Weight: 88.5 kg (195 lb 1.7 oz) Current Body Weight: 88.5 kg (195 lb 1.7 oz), 117.5 % IBW. Weight Source: Bed Scale Current BMI (kg/m2): 28 Weight Adjustment For: No Adjustment BMI Categories: Overweight (BMI 25.0-29.9) Estimated Daily Nutrient Needs: Energy Requirements Based On: Kcal/kg Weight Used for Energy Requirements: Admission Energy (kcal/day): 2477-8320 kcals/day Weight Used for Protein Requirements: Admission Protein (g/day): 95-115 gm pro/day Fluid (ml/day): per MD Nutrition Diagnosis: Inadequate oral intake related to impaired respiratory function as evidenced by NPO or clear liquid status due to medical condition, intubation Nutrition Interventions: Food and/or Nutrient Delivery: Continue NPO (Monitor plans for nutrition and plan of care.) Nutrition Education/Counseling: No recommendation at this time Coordination of Nutrition Care: Continue to monitor while inpatient Goals: Previous Goal Met: (Goal Set) Goals: Initiate nutrition support, by next RD assessment Nutrition Monitoring and Evaluation: Behavioral-Environmental Outcomes: None Identified Food/Nutrient Intake Outcomes: Diet Advancement/Tolerance Physical Signs/Symptoms Outcomes: Biochemical Data, GI Status, Fluid Status or Edema, Weight, Skin, Nutrition Focused Physical Findings, Hemodynamic Status Discharge Planning: Too soon to determine Alba Denson RD, LD Contact: [phone] Patient to IR for lumbar puncture, assisted to table in prone position. PA and CM RT at bedside. Site prepped and draped, area numbed with lidocaine. 12ml of clear fluid drained. Specimen collected. Band aid placed to site. Patient tolerated well and is transported back to room with BOTTLE HOP and respiratory therapist. Multiple attempts were made to contact family prior to intubation, including multiple calls to daughter Yamileth, son Shane, and mother Sherrie, however unable to get in touch with family prior to medically necessary intubation. Patient emergently intubated for airway protection given prolonged periods of central apnea and waxing and waning mental status as well as need for urgent interventions including lumbar puncture and MRI brain. Call received from daughter later in the afternoon. Spoke with daughter, Yamileth Gorman, who is a medical policy specialist, at and updated on patient's condition, including intubation, and pending procedures including lumbar puncture and imaging including MRI. Consent obtained for lumbar puncture. Daughter had an opportunity to ask all questions. Voiced understanding of treatment plan and patient condition. She states she will be back to visit patient this afternoon. Xochitl Hampton MD Date: 01/19/2024 Time: 1253 Patient identity confirmed: Yes Indications: testing Preoxygenation: BVM with 100% O2 Laryngoscope size and type Glidescope Tube size:a 7.5 cuffed Number of attempts:1 Cords visualized: [x] Clearly [] Poorly Breath sounds present bilaterally: Yes ETCO2 [x] Positive Tube secured at 26 at lip Chest x-ray ordered: Yes BP: BP: (!) 147/76 Notes: Procedure performed by: Dr. Grant Serrano RCP 1:07 PM [facility] Pharmacokinetic Monitoring Service - Vancomycin José Luis Gorman is a 48 y.o. male starting on vancomycin therapy for sepsis. Pharmacy consulted by Xochitl Hampton for monitoring and adjustment. Target Concentration: Goal AUC/MARINE 400-600 mg*hr/L Additional Antimicrobials: acyclovir, rocephin Pertinent Laboratory Values: Wt Readings from Last 1 Encounters: 01/19/24 88.5 kg (195 lb 1.6 oz) Temp Readings from Last 1 Encounters: 01/19/24 (!) 101.1 F (38.4 C) (Axillary) Estimated Creatinine Clearance: 58 mL/min (A) (based on SCr of 1.7 mg/dL (H)). Recent Labs 01/18/24 2245 01/19/24 0445 CREATININE 1.7* 1.7* BUN 44* 47* WBC 8.6 13.2* Procalcitonin: Pertinent Cultures: Culture Date Source Results 01/18 bloodx2 pending MRSA Nasal Swab: was negative on 01/18 Plan: Dosing recommendations based on Bayesian software Start vancomycin 1250 mg once followed by 750 mg q 12 hours Patient is in ABHIJIT, basline 0.8-1.4, UO 5.4 ml/kg will monitor level tomorrow w/am labs and adjust Anticipated AUC of 481 and trough concentration of 15.4 at steady state Renal labs as indicated Vancomycin concentration ordered for 01/19 @ 0600 Pharmacy will continue to monitor patient and adjust therapy as indicated Thank you for the consult, Divina Nielson RPH 01/19/2024 11:29 AM Please refer to documented H&P this morning for full H&P PLAN: Neuro GCS waxing and waning, 9 - 11 Periods of central apnea noted on exam Precedex gtt started overnight, briefly held due to depressed mentation to obtain neuro exam, patient with increased movement of all extremities and occasional appropriate verbalization, precedex now restarted at 0.[address] Head, CTA head/neck negative at [facility], no TNK given per telestroke Neurology consulted, recommend MRI once more stable EtOH negative UDS negative CIWA protocol, ativan held due to depressed mentation currently Thiamine, folate Given extensive periods of apnea and inability to obtain MRI or LP in current condition, will intubate patient this morning Lumbar puncture today MRI today Sitter at bedside Cardiology HTN emergency, SBP 250 at [facility] Cardene gtt now weaned off SBP goal < 180 Pulmonary 2L NC, continuous brief periods of apnea maintaining saturation CXR pending Renal DKA Beta-hydroxybutyrate 3.37 Insulin gtt 1/2 NS gtt DKA protocol Na 131 / K 5.6 1 g calcium gluconate this AM, iCa 1.13 CK 223 Nik 166 Monitor I/O UA + moderate ketones, negative nitrites and LE GI Diet: NPO Vomiting at OSH LA 2.2 Ammonia 32 TSH 0.58 ID WBC 8.6 --> 13.2 Newly febrile to 101.1, afebrile at [facility] Meningitis prophylaxis initiated with acyclovir, rocephin, and vanco ID consulted Blood Cx NG < 24 h UA + moderate ketones, negative nitrite and LE, urine Cx pending RPP negative CRP 3.7 ESR 28 Endo DKA Glucose [phone] BHB 3.37 Insulin gtt, 1/2 NS gtt DKA protocol BMP q 4h HBA1c 12 Heme H/H 12.9 / 37 Plt 68 at [facility], 91 here DVT: Heparin SC, held this AM for lumbar puncture GI: Protonix WEAN PER PROTOCOL: [] No [x] Yes [] N/A ICU PROPHYLAXIS: Stress ulcer: [x] PPI Agent [] [id number] [] Sucralfate [] Other: VTE: [] Enoxaparin [x] Unfract. Heparin Subcut [] EPC Cuffs NUTRITION: [x] NPO [] Tube Feeding (Specify: ) [] TPN [] PO HOME MEDS RECONCILED: [] No [x] Yes CONSULTATION NEEDED: [] No [x] Yes FAMILY UPDATED: [] No [x] Yes TRANSFER OUT OF ICU: [x] No [] Yes Xochitl Hampton M.D. Emergency Medicine Resident, PGY-3 01/19/2024 8:38 AM Attending Physician Statement I have discussed the care of José Luis Gorman, including pertinent history and exam findings with the resident. I have reviewed the swartz elements of all parts of the encounter with the resident. I have seen and examined the patient with the resident. I agree with the assessment and plan and status of the problem list as documented. Saw the patient during the rounds today, chart reviewed he had 8 to ICU this morning and events noted Patient has been confused disoriented restless moving extremities. His bicarb dropped from 22-15 and anion gap is hide result result is positive now on the He was on insulin drip but will change to DKA protocol. He was hypertensive systolic 240 when he initially presented and requiring Cardene drip currently he is off Cardene drip systolic blood pressures in the 150. He has a fever now 101 which she did not have before at least twice. With all his mentation changes and encephalopathy. Confusion metabolic reason can also be considered because of diabetic ketoacidosis but he is being confused disoriented on presentation restless and now has fever and will likely need a spinal tap or discussed with neurology. Patient will also need MRI of the brain which will change the decision. To exclude meningitis and ID ES or other etiology as patient is also having central apneas. Will give him 2 L fluid bolus now continue with IV fluid DKA protocol will get an ABG now will follow-up with his VBG. Will place him on 2 L nasal cannula for the central apnea which we have observed. Neurology follow-up. MRI of the brain ordered by neurology patient would not be cooperative for the MRI as he is restless and may need intubation for airway protection for his mentation and also for MRI and a spinal tap. Will follow-up blood gases BMP bicarbonate anion gap. Will empirically treat him with vancomycin Rocephin and acyclovir. Will get infectious disease evaluation. I will get okay I did not know anything she is smiling and everything she is triggered Vancomycin Rocephin vancomycin Rocephin meningitic dosing vancomycin and acyclovir although his meningitic dose Discussed with nursing staff, treatment and plan discussed. Discussed with respiratory therapist. Total critical care time caring for this patient with life threatening, unstable organ failure, including direct patient contact, management of life support systems, review of data including imaging and labs, discussions with other team members and physicians at least 55 Min so far today, excluding procedures. Please note that this chart was generated using voice recognition Gogoyoko dictation software. Although every effort was made to ensure the accuracy of this automated hse manager, some errors in hse manager may have occurred. Sarmad Daly MD 01/19/2024 10:52 AM documented in this encounter [facility] 09-24-2023 Nurse Note Patient leaving AMA at this time. This nurse educated patient and patient son about the risks of leaving AMA. Dr. Juarez notified on patient's decision. [facility] 09-24-2023 Miscellaneous Notes Patient leaving AMA [...] previous Head to toe reassessment completed by contract writer and is unchanged from previous head to toe assessment, please refer to flow sheets. Problem: Dysphagia (Adult) Goal: Functional/Safe Swallow Description: Diet Recommendations and Strategies Regular Thin Liquids Meds whole with thin liquid Plan of Care: Frequency: 1x follow up Duration: 1 week Goals: Chcf: José Luis Gorman will be able to [...] regarding dysphagia diagnosis, diet, and treatment recommendations. CAN CLEANER will assist in establishing adequate oral hygiene [...] is 2022, still states he is at [facility], when reoriented that he is in [place] he states shoot I knew that . [...] at this time. Stated he is at [facility], the year is 2002, and Duran is [...] bed. Jennifer Lopez RN Delia discontinued per MD. Patient going to MRI. Neuro in to [...] nasal cannula. ABG results given to Dr. Candelario. Dr. Candelario called regrding abg results. No [...] during this, propofol adjusted. On admission to [facility] ICU, from ED a dual RN [...] with 100% FiO2. documented in this encounter [facility] 09-24-2023 Nurse Note Assessment unchanged from previous. Call light within reach. [facility] 09-24-2023 Nurse Note Assessment completed at this time. Refer to flowsheets if any changes were made. Call light within reach. Pt denies having any needs. [facility] 09-24-2023 Hospital course Narrative Discharge Summary [...] Now resolved UDS: Positive for MDMA - fiscal services director consulted: Patient denied using MDMA, states he [...] tolerated Discharge Follow-up: Paulina Winters MD [address] [id number] Call Post-Hospital Follow Up Discharge Disposition: Patient will be discharged in stable condition. Discharge Time: Including assessment, planning, and medication reconciliation was 8 minutes of MARINE RAILWAY OPERATOR time. Cecil Ivan CNP completing Discharge Summary for Dr. Candelario Please note Portions of this note utilized Gogoyoko dictation software, please excuse any typographical or [...] Please note: Portions of this note utilized Gogoyoko dictation software, please excuse any typographical or grammatical errors. Which inadvertently, might change the meaning and understanding. documented in this encounter [facility] 09-24-2023 Nurse Note No change in assessment from previous [facility] 09-23-2023 History of Presen t illness Narrative 09/23/23 1300 Referral Information Arrived From home or self-care Information Source Information Source patient ;review of medical record Information Source Name José Luis Gorman Contact Information Math Interventionist/SW Added to Care Team Yes This Toilet Attendant is Primary Math Interventionist/SW Yes Social Work Contact Name Rachael Fox Gas Meter Checker's Living Environment Lives With alone Living Arrangements house Primary Care Provided By self Support System Immediate family Able to Return to Prior Arrangements yes Functional Status Patient's Functional Status Prior To This Admission? Independent Employment/Financial Employed? Yes Employment Details [employer] Employment/Financial Concerns no Financial Concerns none Insurance Medical Insurance Verified Yes Initial Discharge Planning Home Care Services (CORK TILE FLOOR LAYER) No DME (CORK TILE FLOOR LAYER) Straight cane;Wheelchair;Walker Patient Goal for Discharge Return [...] Left UE Assessment Details Grossly 5/5 Hand Pot Press Operator Strength Hand Pot Press Operator Strength Interpretation Left above expected range (strong);Right above expected range (strong) Sit to Stand Transfer Maverick Level: Sit->Stand supervision Assistive Device: Sit->Stand gait belt Stand to Sit Transfer Maverick Level: Stand->Sit supervision Assistive Device: Stand->Sit gait belt Sitting Balance Static Sitting-Level of Assistance Independent Dynamic Sitting-Level of Assistance Independent Standing Balance Static Standing-Level of Assistance Supervision Dynamic Standing-Level of Assistance Supervision LE Dressing LE Dressing Assistance Independent LE Dressing Location edge of bed LE Dressing Intervention/Details Pt pulled up each leg to bed to doff/don bilateral wrapper sorter socks with no hands-on assist required. Patient [...] of Function Details Drove, independent. PRIOR LEVEL AM-PAC Basic Mobility Inpatient Short Form Turning over in bed 4 - No Assistance Sitting/standing from chair 4 - No Assistance Moving from lying on back to sitting 4 - No Assistance Moving to and from bed to chair 4 - No Assistance Walk in hospital room 4 - No Assistance Climbing 3-5 steps with a railing 4 - No Assistance PRIOR LEVEL AM-PAC Mobility Raw Score 24 PRIOR LEVEL AM-PAC Mobility Functional Limitation/Modifier 0.00% Prior Functional Impairment [...] UE lean onto bed rail) Rolling/Turning Mobility Maverick Level: Rolling/Turning independent Scooting Bridging Mobility Maverick Level: Scooting/Bridging independent Supine to Sit Mobility Maverick Level: Supine->Sit independent Skilled Intervention/Details: Supine->Sit Patient did require to sit EOB for short period prior to transition to stand. BP taken and no decrease from baseline. Sit to Stand Transfer Maverick Level: Sit->Stand minimum assist (75% patient effort) Skilled Intervention/Details: Sit->Stand Assist needed d/t inability to maintain in one plane of movement, compensated for balance and/or functional weakness with a deviation to straight sit to stand. Bed-Chair Transfer Maverick Level: Bed<->Chair (pt declined up to chair) Gait Assessment Maverick Level: Gait moderate assist (50% patient effort) [...] the bed, patient w/ scissored gait) CURRENT -[facility] Basic Mobility Inpatient Short Form Turning over [...] a railing 1 - Total Assistance CURRENT -[facility] Mobility Raw Score 17 CURRENT -[facility] Mobility Functional Limitation/Modifier 50.57% Currently Impaired in [...] falls. States he had multiple hospitalizations in [facility] previously for infection. Evaluation as noted, with [...] Date: 09/21/2023 Date of Evaluation: 1:25 AM [facility] LOS: 2 days SUBJECTIVE: Patient seen [...] %. O2 Sat (%): 97 % (09/23 1114) O2 Device: room air (09/23 111) Intake [...] injection 40 mg 40 mg Subcutaneous Daily RODRIGUEZ Shepherd 40 mg at 09/23/23 0847 hydrALAZINE (APRESOLINE) injection 20 mg 20 mg Intravenous Q4H PRN RODRIGUEZ Shepehrd Ipratropium-albuterol (DUONEB) 0.5-2.5 (3) MG/3ML nebulizer solution [...] GI/DVT Prophylaxis: Protonix/Lovenox 6 minutes spent of MARINE RAILWAY OPERATOR time including assessment, planning, and discussion with [...] Please note: Portions of this note utilized Gogoyoko dictation software, please excuse any typographical or grammatical errors. Which inadvertently, might change the meaning and understanding. Neurology Inpatient Progress Note (Video) [facility] 09/23/2023 Patient: José Luis Gorman Date of [...] problems updated. 47 y.o. male presented to [facility] 09[facility]2023 with AMS PLAN: Altered mentation- [...] Vitals: 09/23/23 0800 09/23/23 0801 09/23/23 0847 12/08/23 1000 BP: 155/82 152/78 178/86 Pulse: 91 101 95 Resp: 18 20 18 Temp: 97.8 degrees F (36.6 degrees C) TempSrc: Oral SpO2: 97% 98% 97% Weight: Height: SWARTZ: DNFC: Does Not Follow Commands KENN: Unable [...] & GROSS MOTOR: Abnormal Movements: None Coordination Pyjotg-kn-Vyad: Normal Coordination Oguw-Tges-Eamf: Normal Drift: None Tone: Normal Bulk: Normal MUSCLE STRENGTH: Right Muscle Strength Left 5 Shoulder Abduction (Deltoid) 5 5 Elbow Flexion (Biceps) 5 5 Elbow Extension (Triceps) 5 5 Finger Abduction (Interossei) 5 5 Hip Flexion (Iliopsoas) 5 5 Knee Extension (Quads) 5 5 Knee Flexion (Hamstrings) 5 5 Dorsiflexion (Anterior Tibialis) 5 MOTOR SWARTZ: 5 Normal (Normal Power) 4 Mild Weakness [...] conducted by the provider in the office: [address] [place] [address] and the patient offsite: [facility] Time spent in medical discussion with [...] assessment and plan and agree with the MARINE RAILWAY OPERATOR findings and plan of care as documented. [...] Portions of this chart were created using Gogoyoko electronic dictation. Please excuse any typographical or grammatical errors contained herein as a result. [facility] SPEECH-LANGUAGE PATHOLOGY Inpatient Clinical Dysphagia Evaluation Date of Admission: 09/21/2023 Date of Evaluation: 09/23/2023 Attending Physician: Karl Candelario MD Admitting Diagnosis: ICD-10-CM 1. Altered mental status, unspecified altered mental status type R41.82 2. Hypertensive emergency I16.1 Treating Diagnosis: Dysphagia, other R13.19 Current Method of Nutrition: NPO without meds History of Presenting Illness: José Luis Gorman is a 47 y.o. male who presents to [facility] ICU given AMS. He was intubated on 09/21/23 and extubated on 09/22/23. His drug screen was positive for Brian and MDMA. A Brain MRI from yesterday found no acute process. José Luis Gorman was referred for a dysphagia evaluation given extubation and AMS. Prior CAN CLEANER history/Instrumentals: No previous history of ST. No [...] phase appears WFL. STRATEGIES TRIALED/Response N/A N/A [place] Swallow Screen: (administered by: Nursing) [place] Swallow Screening Screening Exclusion Criteria: unable to remain alert for testing [place] Swallow Screening Result: excluded from swallow screen [...] 1x follow up Duration: 1 week Goals: Chcf: José Luis Gorman will be able to [...] regarding dysphagia diagnosis, diet, and treatment recommendations. CAN CLEANER will assist in establishing adequate oral hygiene for reduced risk of pulmonary compromise given dysphagia diagnosis. Natty Desai MS, CCC-CAN CLEANER Speech-Language Pathologist Total Treatment Time: 15 minutes Chart reviewed. Patient extubated this afternoon. SW attempted to speak with patient x2 after extubation, neurology in room and then patient was at MRI. Will continue to follow. documented in this encounter [facility] 09-23-2023 Nurse Note Head to toe reassessment completed by contract writer and is unchanged from previous head to toe assessment, please refer to flow sheets. [facility] 09-23-2023 Procedure note Associated Ord er(s): EEG AWAKE, ROUTINE Interpreting physician: Cecil Yu M.D. This is a routine EEG performed on a 47 y.o. year-old male using standard 10-20 lead placement and a [employer] system. All data was obtained digitally and [...] activity consistent with a moderate diffuse encephalopathy. [facility] 09-23-2023 Procedure note Associated Ord er(s): EEG AWAKE, ROUTINE Interpreting physician: Cecil Yu M.D. This is a routine EEG performed on a 47 y.o. year-old male using standard 10-20 lead placement and a [employer] system. All data was obtained digitally and [...] moderate diffuse encephalopathy. documented in this encounter [facility] 09-23-2023 Plan of care note Problem: Dysphagia (Adult) Goal: Functional/Safe Swallow Description: Diet Recommendations and Strategies Regular Thin Liquids Meds whole with thin liquid Plan of Care: Frequency: 1x follow up Duration: 1 week Goals: Chcf: José Luis Gorman will be able to [...] regarding dysphagia diagnosis, diet, and treatment recommendations. CAN CLEANER will assist in establishing adequate oral hygiene for reduced risk of pulmonary compromise given dysphagia diagnosis. Outcome: Ongoing [facility] 09-23-2023 Nurse Note Patient more alert than previous assessment, this nurse asked patient if he remembers any events that has happened in the last day, he said he does remember a tube being down his thoat, but does not remember why. Educated patient on what happened. [facility] 09-23-2023 Nurse Note Patient able to tell this nurse it is 2022, still states he is at [facility], when reoriented that he is in [place] he states shoot I knew that . Patient pleasant but still restless in the bed, continues to roll in circles, and get up on hands and knees and rock back and forth. [facility] 09-23-2023 Nurse Note Patient had episode of bowel incontinence. Patient cleaned, and placed in a brief, linens changed as well. [facility] 09-22-2023 Nurse Note Patient continues to pull lines and lead at this time. Patient pulled IV out. This nurse placed new iv in left hand at this time. [facility] 09-22-2023 Nurse Note Patient continues to roll around in bed, and get on his hands and knees in the bed. This nurse redirected patient at this time. [facility] 09-22-2023 Nurse Note Patient calm, but remains confused at this time. Stated he is at [facility], the year is 2002, and Roger is the president. Redirected patient at this time. [facility] 09-22-2023 Nurse Note Patient responses to [...] temp on temporal thermometer. Jennifer Lopez RN [facility] 09-22-2023 Nurse Note Patient had rolled [...] placement at this time. Jennifer Lopez RN [facility] 09-22-2023 Nurse Note Patient is currently [...] position in the bed. Jennifer Lopez RN [facility] 09-22-2023 Nurse Note Delia chairez per MD. Patient going to MRI. Neuro in to see. Jennifer Lopez RN [facility] 09-22-2023 Nurse Note Patient still drowsy, wakes for a brief moment, will open eyes and look at you but will shake his head no to any question asked him. Son's updated on plan of care for patient. Jennifer Lopez RN [facility] 09-22-2023 Nurse Note Patient was extubated at 1340, patient is drowsy but vitals are stable. Neurology consult made. RSV swab done and sent to lab. Son's at bedside. Jennifer Lopez RN [facility] 09-22-2023 Progress note Formatting of t his note might be different from the original. Patient extubated and placed on 2LPM nasal cannula. [facility] 09-22-2023 Consult note Associated Order (s): IP CONSULT TO NEUROLOGY Neurology Inpatient Consult (Video) [facility] 09/22/2023 Patient: José Luis Gorman Date of : 1975 (47 y.o.) Referring Provider: Refer to consult order in electronic medical record PCP: Paulina Winters ASSESSMENT: Principal Diagnosis: Acute respiratory failure Active Pertinent Problems and Diagnoses Present on Admission: Acute respiratory failure Acute delirium Polysubstance use disorder Renal insufficiency Additional Active Pertinent Problems and Diagnoses No problems updated. 47 [facility]. [facility] [facility] on 09/21/2023 with AMS PLAN: Altered mentation- [...] 100% (!) 80% 99% 99% Weight: Height: SWARTZ: DNFC: Does Not Follow Commands KENN: Unable [...] & GROSS MOTOR: Abnormal Movements: None Coordination Ictsdv-hc-Evfj: Normal Coordination Kqzo-Eenx-Duqt: Normal- requires demonstration Drift: None Tone: Normal Bulk: Normal MUSCLE STRENGTH: Hand grasp equal bilaterally. Able to overcome antigravity and maintain. SENSATION: Fine Touch: Normal Patient verbally consents to the submissions of a Video health visit, patient is aware of the risks, benefits, and possible coinsurance/copay cost. Video was conducted by the provider in the office: [address] [place] [address] and the patient offsite: [facility] Time both providers spent in medical discussion with patient 72 minutes Aracely Richard APRN-[facility] Associated attestation - Cecil Yu MD [...] assessment and plan and agree with the MARINE RAILWAY OPERATOR findings and plan of care as documented. [...] Portions of this chart were created using Gogoyoko electronic dictation. Please excuse any typographical or grammatical errors contained herein as a result. [facility] 09-22-2023 Consult note Associated Order (s): IP CONSULT TO NEUROLOGY Neurology Inpatient Consult (Video) [facility] 09/22/2023 Patient: José Luis Gorman Date of : 1975 (47 y.o.) Referring Provider: Refer to consult order in electronic medical record PCP: Paulina Winters ASSESSMENT: Principal Diagnosis: Acute respiratory failure Active Pertinent Problems and Diagnoses Present on Admission: Acute respiratory failure Acute delirium Polysubstance use disorder Renal insufficiency Additional Active Pertinent Problems and Diagnoses No problems updated. 47 y.o. male [facility] with AMS PLAN: Altered mentation- [...] 100% (!) 80% 99% 99% Weight: Height: SWARTZ: DNFC: Does Not Follow Commands KENN: Unable [...] & GROSS MOTOR: Abnormal Movements: None Coordination Ibwbes-yc-Fbmq: Normal Coordination Bwpv-Jpgg-Hshq: Normal- requires demonstration Drift: None Tone: Normal Bulk: Normal MUSCLE STRENGTH: Hand grasp equal bilaterally. Able to overcome antigravity and maintain. SENSATION: Fine Touch: Normal Patient verbally consents to the submissions of a Video health visit, patient is aware of the risks, benefits, and possible coinsurance/copay cost. Video was conducted by the provider in the office: [address] [place] [address] and the patient offsite: [facility] Time both providers spent in medical discussion with patient 72 minutes Aracely Richard APRN-[facility] Associated attestation - Cecil Yu MD [...] assessment and plan and agree with the [facility] findings and plan of care as documented. [...] Portions of this chart were created using Gogoyoko electronic dictation. Please excuse any typographical or grammatical errors contained herein as a result. documented in this encounter [facility] 09-22-2023 Progress note Formatting of t his note might be different from the original. ABG results given to Dr. Candelario. [facility] 09-22-2023 Progress note Formatting of t his note might be different from the original. Dr. Candelario called regrding abg results. No answer. Message left. [facility] 09-22-2023 Progress note Formatting of t [...] was drawn. Patient remains in PS mode. [facility] 09-22-2023 History and physical note History [...] -- 101 -- 100 % -- -- 09/22/230 -- -- -- 102 -- -- -- -- 09/22/239 145/77 -- -- 104 -- -- -- -- 09/22/230 -- -- -- 124 -- 95 % -- -- 09/22/230 (!) 237/101 -- -- 134 -- 100 % 1.829 m (6') 85.5 kg (188 lb 9.6 oz) 09/22/23 035 (!) 240/105 -- -- 144 -- (!) 85 % -- -- 09/22/236 -- -- -- -- -- 100 % -- -- 09/22/23 034 (!) 248/112 -- -- 144 -- (!) [...] 09/21/2023 YELLOW APPEARANCE, URINE 09/21/2023 CLEAR Specific [place], Urine 09/21/2023 >1.030 (H) PH URINE 09/21/2023 [...] GLUCOSE, POINT OF CARE 09/21/2023 232 (H) Parts Cataloger 09/21/2023 206,283 MAGNESIUM 09/21/2023 2.0 GLUCOSE, POINT OF CARE 09/21/2023 158 (H) Parts Cataloger 09/21/2023 205,802 GLUCOSE, POINT OF CARE 09/22/2023 109 (H) Parts Cataloger 09/22/2023 206,346 GLUCOSE, POINT OF CARE 09/22/2023 95 Parts Cataloger 09/22/2023 205,802 WBC (WHITE BLOOD COUNT) 09/22/2023 [...] 99. GLUCOSE, POINT OF CARE 09/22/2023 80 Parts Cataloger 09/22/2023 206,124 MAGNESIUM 09/22/2023 2.0 Impression and [...] for Dr. Candelario 16 minutes spent of MARINE RAILWAY OPERATOR time including assessment, planning, and discussion with nursing staff and patient Please note Portions of this note utilized Smart Skin Technologiesation software, please excuse any typographical or grammatical [...] Please note: Portions of this note utilized [employer] software, please excuse any typographical or grammatical errors. Which inadvertently, might change the meaning and understanding. [facility] 09-22-2023 Evaluation + Plan note Associated Problem(s): Polysubstance use disorder Positive for benzos and MDMA Complete cessation will be advised [facility] 09-22-2023 History and physical note History [...] -- 83 -- 100 % -- -- 09/22/2320 126/77 -- -- 86 -- 100 % -- -- 09/22/2310 130/79 -- -- 90 -- 100 % [...] -- -- 102 -- -- -- -- 09/22/239 145/77 -- -- 104 -- -- -- -- 09/22/23409 -- -- -- 124 -- 95 % -- -- 09/22/23399 (!) 237/101 -- -- 134 -- 100 % 1.829 m (6') 85.5 kg (188 lb 9.6 oz) 09/22/23349 (!) 240/105 -- -- 144 -- (!) 85 % -- -- 09/22/236 -- -- -- -- -- 100 % -- -- 09/22/23339 (!) 248/112 -- -- 144 -- (!) 86 % -- -- 09/22/23329 -- -- -- 148 -- (!) 87 % -- -- 09/22/230 (!) 187/116 -- -- 134 -- -- -- -- 09/22/230 181/84 -- -- 105 -- 100 % [...] 09/21/2023 YELLOW APPEARANCE, URINE 09/21/2023 CLEAR Specific [place], Urine 09/21/2023 >1.030 (H) PH URINE 09/21/2023 [...] GLUCOSE, POINT OF CARE 09/21/2023 232 (H) Parts Cataloger 09/21/2023 206,283 MAGNESIUM 09/21/2023 2.0 GLUCOSE, POINT OF CARE 09/21/2023 158 (H) Parts Cataloger 09/21/2023 205,802 GLUCOSE, POINT OF CARE 09/22/2023 109 (H) Parts Cataloger 09/22/2023 206,346 GLUCOSE, POINT OF CARE 09/22/2023 95 Parts Cataloger 09/22/2023 205,802 WBC (WHITE BLOOD COUNT) 09/22/2023 [...] 99. GLUCOSE, POINT OF CARE 09/22/2023 80 Parts Cataloger 09/22/2023 206,124 MAGNESIUM 09/22/2023 2.0 Impression and [...] for Dr. Candelario 16 minutes spent of MARINE RAILWAY OPERATOR time including assessment, planning, and discussion with nursing staff and patient Please note Portions of this note utilized [employer] software, please excuse any typographical or grammatical [...] Please note: Portions of this note utilized Dragon dictation software, please excuse any typographical or grammatical errors. Which inadvertently, might change the meaning and understanding. documented in this encounter [facility] 09-22-2023 Evaluation + Plan note Associated Problem(s): Acute respiratory failure Patient without hypoxia - Intubated due to combativeness Attempt wean/extubate today CXR non-acute 02 per protocol, IS Routine aerosols [facility] 09-22-2023 Evaluation + Plan note Associated Problem(s): Acute delirium Secondary to drug effects CT head non-acute Supportive care [facility] 09-22-2023 Nurse Note Morning assessment completed, Patient at appropriate level of sedation. Resting comfortable in bed, eyes closed. Vitals stable. Patient's mother called in and update give. Morning Labs drawn. Jennifer Lopez RN [facility] 09-22-2023 Plan of care note Problem: [...] discharge/transition of care. Outcome: Progressing Toward Goal [facility]-22-[facility]23 Nurse Note Precedex drip running, working to turn propofol down to wean off and precedex up to help keep pt calm. [facility] 09-22-2023 Nurse Note Pt finally relaxing and less agitated, will continue to monitor. [facility] 09-22-2023 Nurse Note Staff x4 in room to help protect pt as he is restless and agitated, sit up in bed, Dr. Candelario notified to verify earlier order to change to precedex and discontinue propofol, states to proceed with this as stated earlier. [facility] 09-22-2023 Nurse Note Pt awakens suddenly and quickly becomes agitated, due to situation propofol increased to try to calm pt. [facility] 09-22-2023 Nurse Note Sedation titrated down due to low BP, pt then becomes very agitated and combative, BP increases, propofol titrated back up and pt calms, Dr. Candelario notified of this, orders received. [facility] 09-21-2023 Nurse Note Attempt to place OG without success, and then attempt NG also without success, pt becomes agitated during this, propofol adjusted. [facility] 09-21-2023 Emergency department Note Call to family to update on transferr to ICU. Call to Sherly Sherrie Gentile @ [phone]. [facility] 09-21-2023 Emergency department Note Call to family to update on transferr to ICU. Call to Sherly Sherrie Gentile @ [phone]. This RN speaks with loop and gives them patient name. Multiple attempts at OG/NG tube placement unsuccessful, Dr Beltran aware. Multiple attempts to place OG and NG tube by this RN, Deanna Barbosa RN, and Martina OCONNELL. All attempts unsuccessful. Family is waiting room, Dr Beltran aware and states he will talk with family. Attempting to place OG tube. Patient is agitated and pulling arms and kicking legs. Dr Beltran aware. Verbal order to place vecuronium. Lab bedside Patient has abrasions to bilateral shins. Blood on patients jeans. EMERGENCY DEPARTMENT REPORT [facility] [place] DATE: 09/21/23 PCP: Paulina Winters [...] Extremities: No lower extremity pitting edema. Neurological: [place] coma Scale: 3. VITAL SIGNS DURING ED VISIT: Patient Vitals for the past 24 hrs: BP Temp Temp src Pulse Resp SpO2 Weight 09/21/231952 113/64 97.2 F (36.2 C) Axillary 95 [...] Patient admitted to the ICU under the caseworker service for further evaluation and treatment. ORDERS/RESULTS: [...] CARE 232 (H) 70 - 100 MG/DL Parts Cataloger 206,283 ARTERIAL BLOOD GAS Result Value Ref [...] YELLOW YELLOW APPEARANCE, URINE CLEAR CLEAR Specific [place], Urine >1.030 (H) 1.010 - 1.025 PH [...] Portions of this chart were created using Gogoyoko electronic dictation. Please excuse any typographical or grammatical errors contained herein. Reginaldo Beltran MD 09/21/232117 BS 256. Pt EMS patient was found at home by son and was unresponsive. Pt became combative en route to ED and was placed in soft restraints and given 7.5 mg versed. Pt arrives to ED unresponsive. Dr Beltran and respiratory bedside, Pt unresponsive. Per EMS, patient was found home by son and was unresponsive. Per ems documented in this encounter [facility] 09-21-2023 Nurse Note On admission to [facility] ICU, from ED a dual RN initial assessment of skin condition was performed by Amna Irvin RN and Joseline Paez RN. Skin Assessment: Skin within defined limits:Yes Pt has some scabs and abrasions to bilateral shins. Derek Score: 12 LDA Added:No Amna Irvin RN [facility] 09-21-2023 Nurse Note Loop here as pt arrives to ICU, [facility] 09-21-2023 Emergency department Note This RN speaks with loop and gives them patient name. [facility] 09-21-2023 Emergency department Note Multiple attempts at OG/NG tube placement unsuccessful, Dr Beltran aware. [facility] 09-21-2023 Emergency department Note Multiple attempts to place OG and NG tube by this RN, Deanna Barbosa RN, and Martina OCONNELL. All attempts unsuccessful. Family is waiting room, Dr Beltran aware and states he will talk with family. [facility] 09-21-2023 Emergency department Note Attempting to place OG tube. Patient is agitated and pulling arms and kicking legs. Dr Beltran aware. Verbal order to place vecuronium. [facility] 09-21-2023 Emergency department Note Lab bedside [facility] 09-21-2023 Emergency department Note Patient has abrasions to bilateral shins. Blood on patients jeans. [facility] 09-21-2023 Progress note Formatting of t his note might be different from the original. Ventilator initiated at this time. Refer to flowsheets for settings and readings. [facility] 09-21-2023 Physician Emergency department Note EMERGENCY DEPARTMENT REPORT [facility] SERVICE DATE: 09/21/23 PCP: Paulina Winters [...] Extremities: No lower extremity pitting edema. Neurological: [place] coma Scale: 3. VITAL SIGNS DURING ED [...] Patient admitted to the ICU under the caseworker service for further evaluation and treatment. ORDERS/RESULTS: [...] CARE 232 (H) 70 - 100 MG/DL Parts Cataloger 206,283 ARTERIAL BLOOD GAS Result Value Ref [...] YELLOW YELLOW APPEARANCE, URINE CLEAR CLEAR Specific [place], Urine >1.030 (H) 1.010 - 1.025 PH [...] Portions of this chart were created using Gogoyoko electronic dictation. Please excuse any typographical or grammatical errors contained herein. Reginaldo Beltran MD 09/21/232117 [facility] 09-21-2023 Progress note Formatting of t his note might be different from the original. Pt intubated with size 8.0 ETT 26@ teeth by Dr Beltran. Positive color change on EtCO2 with equal breath sounds noted. Vocal cords visualized via GlideScope. SpO2 100% while being bagged with 100% FiO2. [facility] 09-21-2023 Emergency department Note BS 256. [facility] 09-21-2023 Emergency department Note Pt EMS patient was found at home by son and was unresponsive. Pt became combative en route to ED and was placed in soft restraints and given 7.5 mg versed. Pt arrives to ED unresponsive. [facility] 09-21-[address] Beltran and respiratory bedside, [facility] 09-21-2023 Emergency department Note Pt unresponsive. Per EMS, patient was found home by son and was unresponsive. Per ems [facility] 04-19-2022 Hospital DischLulú Cervantes, - 04/20/2022 Start taking her blood pressure medication as prescribed. Please follow-up with your doctor in the next 2 to 3 days. The following attachments cannot be sent through Care Everywhere.HTN (Hypertension): Diuretics: General Info (Burmese)documented in this encounter [employer] Phone: Evaluation + Plan note No data available for this section [facility] Surgery [facility] Evaluation note Diagnosis Acute nonintractable headache, unspecified headache type- Primary Elevated blood pressure reading Elevated blood pressure reading without diagnosis of hypertension documented in this encounter [employer] Phone: evaluation note* Diagnosis Essential hypertension- Primary Unspecified essential hypertension Acute headache, unspecified headache type documented in this encounter [facility] [employer] Phone: evaluation note* Diagnosis Acute respiratory failure- Primary Altered mental status, unspecified altered mental status type Hypertensive emergency Unspecified essential hypertension Acute delirium Other alteration of consciousness Polysubstance use disorder Renal insufficiency Unspecified disorder of kidney and ureter Type 2 Diabetes (A1C > 6.49%) [facility] Diagnosis Hypertensive encephalopathy- Primary Hypertensive emergency Unspecified essential hypertension [facility]* Diagnosis Hypertensive encephalopathy- Primary Central apnea Apnea NSTEMI (non-ST elevated myocardial infarction) (HCC) Acute myocardial infarction, subendocardial infarction, episode of care unspecified Hypertensive emergency Unspecified essential hypertension Fever Fever, unspecified Altered mental status Encephalopathy acute Encephalopathy, unspecified Diabetic acidosis without coma (HCC) Type II or unspecified type diabetes mellitus with ketoacidosis, not stated as uncontrolled Hypertensive urgency Unspecified essential hypertension Lactic acidosis Acidosis Central apnea Apnea documented [facility] this [facility]* Instructions* Cheng Lira MD - [...] through Care Everywhere. * Blood Pressure: Elevated (Burmese) * Headache (Burmese) [facility] Phone: Hospital Discharge instructions No data available for this section [facility] Surgery [place] Progress note No data available for this section [facility] Reason for referral (narrative)* (Routine) Specialty Diagnoses / Procedures Referred By Contac t Referred To Contact [facility] [address] [place] [address] Referral ID Status Reason Start Date Expiration Date Visits Re quested Visits Authorized * Unlisted Procedure Code (Routine) - New Request Specialty Diagnoses / Procedures Referred By Contac t Referred To Contact Procedures INPATIENT ADMISSION NOTIFICATION Karl Candelario MD [address] [place] [address] [place] [address] Referral ID Status Reason Start Date Expiration Date V isits Requested Visits Authorized [id number] New Request 09/21/2023 10/15/2024 1 1 * (Routine) Specialty Diagnoses / Procedures Referred By Contac t Referred To Contact [facility] [address] [place] [address] Referral ID Status Reason Start Date Expiration Date Visits Re quested Visits Authorized [facility] Advance Directives No Advanced Directives Records FoundLatest Code Status on File Code Status Date Activated Date Inactivated Comments Full Code 10/27/2021 3:33 PM 11/02/2021 6:24 PM Latest Code Status on File Code Status Date Activated Date Inactivated Comments Full Code 09/21/2023 6:46 PM Latest Code Status on File Code Status Date Activated Date Inactivated Comments Full Code 10/27/2021 3:33 PM 11/02/2021 6:24 PM Latest Code Status on File Code Status Date Activated Date Inactivated Comments Full Code 01/19/2024 3:59 AM Code Status History Code Status Date Activated Date Inactivated Comments Full Code 10/27/2021 3:33 PM 11/02/2021 6:24 PM Healthcare Agents on File Name Relationship Healthcare Agent Relationshi p Communication Shane Z Child Primary Decision Maker Trent Romero Child Secondary Decision Maker Summary Purpose Family History No Family History Records FoundNo Family History Records FoundNo Family History Records FoundNo Family History Records FoundNo Family History Records Found No data available for this section No Family History Records FoundNo Family History Records Found Additional Source Comments Reason for Visit (unrecogniz ed section and content) Reason Comments Headache Pt presents to the e mergecy department with complaint of Right Frontal 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 Pt does have a history of neuropathy and HTN Reason Comments Other Unresponsive. Snorin g respirations and periods of apnea Specialty Diagnoses / Procedures Referred By Sergei barbosa Referred To Contact Diagnoses Acute respiratory failure Hypertensive emergency Altered mental status, unspecified altered mental status type Karl Candelario MD [address] [facility] [place] [address] [facility] Referral ID Status Reason Start Date Expiration Date Visits Re quested Visits Authorized [id number] 1 1 Reason Comments Aphasia Headache Pt arrives to ED wit h slurred speech and headache weakness on left side. LKW appx 2129. Specialty Diagnoses / Procedures Referred By Sergei barbosa Referred To Contact Diagnoses Hypertensive encephalopathy Hypertensive emergency Hypertensive Emergency Sarmad Daly MD [address] [facility] [address] [place] [address] [facility] [address] [place] [address] Referral ID Status Reason Start Date Expiration Date Visits Re quested Visits Authorized [id number] 1 1 Scheduled Active and Recently Administ ered Medications (unrecognized section and content) Medication Order 04/03/2022 04/04/2022 04/05/2022 0.9 % sodium chloride bolus (COMPLETED) 1,000 mL (11.6 mL/kg), IntraVENous, at 1,000 mL/hr, Administer over 1 Hours, ONCE, On 04/04/22 at 2215, For 1 dose 2214 (New Bag - Provider: Josie Donovan RN)8714 (Stopped - Provider: Brenda Bell RN) acetaminophen (TYLENOL) tablet 1,000 mg (COMPLETED) 1,000 mg, Oral, ONCE, 1 dose, On 04/04/22 at 2300, Maximum dose of acetaminophen is 4000 mg from all sources in 24 hours. 2256 (Given - Provider: Orlando Bell RN) diphenhydrAMINE [...] Lopez RN)2246 ($$New Bag$$ - Provider: Sujatha Walker, KOURTNEY) 0605 ($$New Bag$$ - Provider: Sujatha Walker, RN)1419 (Stopped - Provider: Natalio Naranjo RN) albumin human 25 % injection 25 g () 25 g, Intravenous, Administer over 60 Minutes, EVERY 1 HOUR, 2 doses, First dose on Roz 09/22/23 at 1100, Last dose on Roz 09/22/23 at 1200, At [facility], in emergencies, administer as rapidly as [...] Walker RN) 141 (Stopped - Provider: Natalio Naranjo RN) Dextrose 10% IV solution 250 mL(Linked [...] refer to the hypoglycemia management protocol on : C-MG-Zfvdujsyheul Management Protocol Haloperidol lactate (HALDOL) injection 5 [...] not met)1711 (Not Given - Provider: Jennifer Lopze RN - Reason: Other) 0031 (Not Given - Provider: Sujatha Walker RN - Reason: Order Parameters not met)0609 (Not Given - Provider: Sujatha Walker RN - Reason: Order Parameters not met)1206 [...] 2117 (Given - Provider: Toan Calvin RN) 940 (Given - Provider: Eveline Elias LPN)2099 (Canceled Entry - Provider: System Discharge - Comment: Automatically canceled at discontinue of medication order) Lisinopril (PRINIVIL) tablet 10 mg 10 mg, Oral, EVERY 12 HOURS, First dose on Tue09/23/23 at 1130, Until Discontinued 1218 (Given - Provider: Natalio Naranjo RN)2117 (Given - Provider: Toan Calvin RN) 940 (Given - Provider: Eveline Elias LPN)2099 (Canceled Entry - Provider: System Discharge - [...] or chew., Indications: Inpt Stress Ulcer Prophylaxis 921 (Not Given - Provider: Natalio Naranjo RN - Reason: Other - Comment: iv given this morning see dec) 40 (Given - Provider: Eveline Elias LPN) QUEtiapine (SEROquel) tablet 100 mg 100 mg, [...] 1130 1058 ($$New Bag$$ - Provider: Jennifer Lopez RN)1200 (Stopped - Provider: Jennifer Lopez RN) [...] instructions. 0335 ($$New Bag$$ - Provider: Amna Irvin RN)0400 (Rate/Dose Change - Provider: Amna Irvin RN)0432 (Rate/Dose Change - Provider: Amna Irvin RN)0500 (Rate/Dose Change - Provider: Amna Irvin RN)0530 (Rate/Dose Change - Provider: Amna Irvin, RN)0600 (Rate/Dose Verify - Provider: Amna Irvin, RN)0943 (Rate/Dose Change - Provider: Jennifer Lopez RN)1015 (Paused - Provider: Jennifer Lopez RN)1228 ($$New Bag$$ - Provider: Jennifer Lopez, RN)1330 (Stopped - Provider: Jennifer Lopez RN) 0848 (Stopped - Provider: Natalio Naranjo RN) Dextrose 5% and sodium chloride 0.9% IV solution Intravenous, at 125 mL/hr, CONTINUOUS, Starting on Roz 09/22/23 at 1115, Until 09/24/23 at 2159 1139 ($$New Bag$$ - Provider: Jennifer Lopez, RN)2255 ($$New Bag$$ - Provider: Sujatha Walker, RN) 0847 ($$New Bag$$ - Provider: Natalio [...] Irvin RN)0030 (Rate/Dose Change - Provider: Amna Irvin, RN)0040 (Rate/Dose Change - Provider: Amna Irvin, RN)0105 (Rate/Dose Change - Provider: Amna Irvin, RN)0110 (Rate/Dose Change - Provider: Amna Irvin, RN)0115 (Rate/Dose Change - Provider: Amna Irvin, RN)0125 (Rate/Dose Change - Provider: Amna Irvin, RN)0140 (Rate/Dose Change - Provider: Amna Irvin RN)0145 (Rate/Dose Change - Provider: Amna Irvin, RN)0150 (Rate/Dose Change - Provider: Amna Irvin, RN)0155 (Rate/Dose Change - Provider: Amna Irvin, RN)0245 (Rate/Dose Change - Provider: Amna Irvin, RN)0250 (Rate/Dose Change - Provider: Amna Irvin, RN)0255 (Rate/Dose Change - Provider: Amna Irvin, RN)0259 (Rate/Dose Change - Provider: Amna Irvin, RN)0300 ($$New Bag$$ - Provider: Amna Irvin, KOURTNEY)0305 (Rate/Dose Change - Provider: Amna Irvin, RN)0310 (Rate/Dose Change - Provider: Amna Irvin, RN)0315 (Rate/Dose Change - Provider: Amna Irvin, RN)0515 (Rate/Dose Change - Provider: Amna Irvin, RN)0525 (Rate/Dose Change - Provider: Amna Irvin RN)0530 (Rate/Dose Change - Provider: Amna Irvin, RN)0535 (Rate/Dose Change - Provider: Amna Irvin, RN)0540 (Rate/Dose Change - Provider: Amna Irvin, RN)0550 (Rate/Dose Change - Provider: Amna Irvin, RN)0600 (Rate/Dose Change - Provider: Amna Irvin, RN)0615 (Rate/Dose Change - Provider: Amna Irvin, RN)0630 (Stopped - Provider: Amna Irvin RN) Sodium chloride 0.9% IV solution () Intravenous, at 125 mL/hr, CONTINUOUS, Starting on Tue09/21/23 at 1845, Until Roz 09/22/23 at 0644 0437 (Rate/Dose Verify - Provider: Amna Irvin, KOURTNEY)2127 (Stopped - Provider: Sujatha Walker, KOURTNEY) Sodium chloride 0.9% IV solution (CANCELED) Intravenous, at 100 mL/hr, CONTINUOUS, Starting on Roz 09/22/23 at 1000, Until Roz 09/22/23 at 1101 1054 (Rate/Dose Change - Provider: Jennifer Lopez RN)2127 (Stopped - Provider: Sujatha Walker RN) PRN Medication Order 09/22/2023 09/23/2023 09/24/2023 [...] > 140 2119 (Given - Provider: Toan Calvin, KOURTNEY) 1745 (Given - Provider: Brenda Rankin, KOURTNEY) [...] dose on Roz 09/22/23 at 1300, Until Discontinued
Sliding Scale parameters: [...] to the hypoglycemia management protocol on [facility]: [id number] Management Protocol
And Dextrose 10% IV solution [...] at 1300, Until Specified
Who to Notify: HISTORY CARD CLERK/Physician
For all Blood Glucose LESS THAN 70 mg/dl, or greater than 400 mg/dl notify HISTORY CARD CLERK/Physician Scheduled Medication Order 01/17/2024 01/18/2024 01/19/2024 labetalol (NORMODYNE;TRANDATE) injection 20 mg (COMPLETED) 20 mg, IntraVENous, ONCE, 1 dose, On Tue01/18/24 at 2245 2304 (Given - Provider: Renetta De La Fuente RN) labetalol (NORMODYNE;TRANDATE) injection 20 mg (COMPLETED) 20 mg, IntraVENous, ONCE, 1 dose, On Tue01/18/24 at 2330 2333 (Given - Provider: Renetta De La Fuente RN) LORazepam (ATIVAN) injection 1 mg (COMPLETED) 1 mg, IntraVENous, ONCE, 1 dose, On Roz 01/19/24 at 0000, Immediately prior to intravenous use, lorazepam Injection must be diluted with at least an equal volume of compatible solution (NS or D5W). 0003 (Given - Provid er: Renetta De La Fuente RN) Continuous Medication Order 01/17/2024 01/18/2024 01/19/2024 niCARdipine (CARDENE) 25 mg in sodium chloride 0.9 % 250 mL infusion ([id number]) 2.5-15 mg/hr (25-150 mL/hr), IntraVENous, CONTINUOUS, Starting on Roz 01/19/24 at 0000, Until Discontinued, Titrate Infusion? Yes, Initial Infusion Rate: 5 mg/hr, Goal of Therapy is: SBP 140-160 mmHg, Contact Provider if: Patient is receiving the maximum dose and is not achieving the goal of therapy, Do not administer through small veins (e.g. those on the dorsum of the hand or wrist); change the infusion site every 12 hours if a peripheral vein is used. If Titrate Infusion? is No : Disregard instructions below. If Titrate infusion? is Yes : Titrate in increments of 2.5 mg/hr no more frequently than every 15 minutes to goal of therapy. When approaching therapeutic goal or weaning off, smaller titration increments of 1 mg/hr no faster than every 15 minutes may be used to maintain goal. Use 20mm [id number] adapter. Preparation Instructions: Attach medication vial to one 20mm [id number] adapter. Darvin fluid bag with adaptor, mix, and administer per order. 0013 (New Bag - Prov ider: Renetta De La Fuente RN)0033 (Rate/Dose Change - Provider: Renetta De La Fuente RN)0045 (Rate/Dose Change - Provider: Renetta De La Fuente RN)0300 (Patient Transferred to Other Facility - Provider: Renetta De La Fuente RN) PRN Medication Order 01/17/2024 01/18/2024 01/19/2024 iopamidol (ISOVUE-370) 76 % injection 75 mL (COMPLETED) 75 mL, IntraVENous, IMG ONCE PRN, 1 dose, Starting on Tue01/18/24 at 2250, Until Tue01/18/24 at 2252, Other 2252 (Given - Provider: [facility]) Scheduled Medication Order 01/20/2024 01/21/2024 01/22/2024 acyclovir (ZOVIRAX) 900 mg in sodium chloride 0.9 % 250 mL IVPB (CANCELED) 900 mg (rounded from 885 mg = 10 mg/kg 88.5 kg), IntraVENous, EVERY 8 HOURS, First dose on Roz 01/19/24 at 1200, Until Discontinued, Antimicrobial Indications: Other, Other Abx Indication: concern for meningitis 0334 (New Bag - Provider: Heydi Johnson RN)0339 (Rate/Dose Verify - Provider: Heydi Johnson RN)0434 (Stopped - Provider: Heydi Johnson, KOURTNEY)0435 (Stopped - Provider: Heydi Johnson, RN) carvedilol (COREG) tablet 12.5 mg 12.5 mg, Oral, 2 TIMES DAILY WITH MEALS, First dose (after last modification) on Tue01/21/24 at 1700, Until Discontinued, Administer with food to minimize the risk of orthostatic hypotension 1732 (Given - Provider: Sarthak Sepulveda, KOURTNEY) 0842 (Given - Provider: Hazel Bowen, KOURTNEY)1737 (Given - Provider: Hazel Bowen RN) carvedilol (COREG) tablet 6.25 mg (CANCELED) 6.25 mg, Oral, 2 TIMES DAILY WITH MEALS, First dose on Tue01/20/24 at 1700, Until Discontinued, Administer with food to minimize the risk of orthostatic hypotension 1725 (Given - Provider: Rashid Booth RN) 0815 (Given - Provider: Sarthak Sepulveda, KOURTNEY) cefTRIAXone (ROCEPHIN) 2000 mg in sterile water 20 mL IV syringe (CANCELED) 2,000 mg, IntraVENous, EVERY 24 HOURS, First dose (after last modification) on Tue01/20/24 at 1000, Until Discontinued, Antimicrobial Indications: Other, Other Abx Indication: concern for meningitis, Administer as slow IV Push over 5 mins 0939 (Given - Provider: Rashid Booth RN) 1019 (Given - Provider: Sarthak Sepulveda, KOURTNEY) 1014 (Given - Provider: Hazel Bowen RN) chlorhexidine (PERIDEX) 0.12 % solution 15 mL 15 mL, Mouth/Throat, 2 TIMES DAILY, First dose on Roz 01/19/24 at 1330, Until Discontinued, For mechanical ventilation care. 0833 (Given - Provider: Rashid Booth RN)1956 (Not Given - Provider: Heydi Johnson RN - Reason: Other - Comment: not on vent. Pt extubated) 0731 (Not Given - Provider: Sarthak Sepulveda RN - Reason: Other - Comment: pt not intubated)2046 (Not Given - Provider: Anjana Donovan RN - Reason: Other - Comment: not indicated) 0837 (Not Given - Provider: Hazel Bowen RN - Reason: Order parameters not met - Comment: pt extubated)2100 (Due) folic acid (FOLVITE) tablet 1 mg 1 mg, Oral, DAILY, First dose on Tue01/21/24 at 1215, Until Discontinued 1218 (Given - Provider: Sarthak Sepulveda RN) 0842 (Given - Provider: Hazel Bowen RN) folic acid 1 mg, thiamine (B-1) 100 mg in sodium chloride 0.9 % 50 mL IVPB (CANCELED) IntraVENous, at 100 mL/hr, Administer over 30 Minutes, DAILY, First dose on Roz 01/19/24 at 1145 0833 (New Bag - Provider: Rashid Booth, RN)0903 (Stopped - Provider: Rashid Booth RN) 1214 (Not Given - Provider: Sarthak Sepulveda RN - Reason: Other - Comment: order changed to PO) heparin (porcine) injection 5,000 Units 5,000 Units, SubCUTAneous, EVERY 8 HOURS SCHEDULED (3 times per day), First dose on Roz 01/19/24 at 0600, Until Discontinued 0600 (Automatically Held - Provider: Xochitl Hampton MD)0734 (Unheld by provider - Provider: Rachael Burns, )1404 (Given - Provider: Rashid Booth, KOURTNEY)2134 (Given - Provider: Heydi Johnson, KOURTNEY) 0530 (Given - Provider: Heydi Johnson RN)1522 (Given - Provider: Sarthak Sepulveda, KOURTNEY)2224 (Given - Provider: Jasmin Maldonado, RN) 0619 (Given - Provider: Jasmin Maldonado, RN)1339 (Not Given - Provider: Hazel Bowen RN - Reason: Patient/family refused)2199 (Due) insulin glargine (LANTUS) injection vial 15 Units (CANCELED) 15 Units, SubCUTAneous, NIGHTLY, First dose (after last modification) on Tue01/21/24 at 2100, Until Discontinued 2100 (Given - Provider: Anjana Donovan RN) insulin glargine (LANTUS) injection vial 20 Units 20 Units, SubCUTAneous, NIGHTLY, First dose (after last modification) on Tue01/22/24 at 2100, Until Discontinued 2099 (Due) insulin glargine (LANTUS) injection vial 5 Units (COMPLETED) 5 Units, SubCUTAneous, ONCE, 1 dose, On Tue01/20/24 at 1415, Bridge - prior to stopping gtt 1404 (Given - Provider: Rashid Booth RN) insulin glargine (LANTUS) injection vial 5 Units (CANCELED) 5 Units, SubCUTAneous, NIGHTLY, First dose on 01/21/24 at 0100, Until Discontinued 0045 (Given - Provider: Heydi Johnson, KOURTNEY) insulin lispro (HUMALOG) injection vial 0-16 Units 0-16 Units, SubCUTAneous, 3 TIMES DAILY WITH MEALS, First dose on Tue01/20/24 at 1700, Until Discontinued, High Dose Corrective Algorithm Glucose: Dose: 70-199 No Insulin 200-249 4 Units 250-299 8 Units 300-349 12 Units Over 349 16 Units and notify physician 1731 (Given - Provider: Rashid Booth RN) 0814 (Given - Provider: Sarthak Sepulveda, KOURTNEY)1218 (Given - Provider: Sarthak Sepulveda, RN)1634 (Given - Provider: Sarthak Sepulveda, KOURTNEY) 0804 (Not Given - Provider: Hazel Bowen RN - Reason: Order parameters not met)1239 (Given - Provider: Hazel Bowen RN)1634 (Not Given - Provider: Hazel Bowen RN - Reason: Order parameters not met) insulin lispro (HUMALOG) injection vial 0-4 Units 0-4 Units, SubCUTAneous, NIGHTLY, First dose on Tue01/20/24 at 2100, Until Discontinued, If continuous tube feedings/TPN/NPO, give correction dose based on result, no reduction in dose. If eating or bolus tube feeding: Corrective Bedtime Algorithm Glucose: Dose: 70-299 No Insulin 300-349 4 Units Over 349 4 Units and notify physician 2010 (Not Given - Provider: Heydi Johnson RN - Reason: Order parameters not met - Comment: BS 206) 2027 (Not Given - Provider: Anjana Donovan RN - Reason: Order parameters not met) 2100 (Due) labetalol (NORMODYNE;TRANDATE) injection 10 mg (COMPLETED) 10 mg, IntraVENous, ONCE, 1 dose, On 01/21/24 at 2215 2223 (Given - Provider: Jasmin Maldonado, KOURTNEY) NIFEdipine (PROCARDIA XL) extended release tablet 30 mg 30 mg, Oral, DAILY, First dose on 01/21/24 at 1530, Until Discontinued, Do not crush or break. 1616 (Given - Provider: Sarthak Sepulveda, KOURTNEY) 0842 (Given - Provider: Hazel Bowen RN) pantoprazole (PROTONIX) 40 mg in sodium chloride (PF) 0.9 % 10 mL injection (CANCELED) 40 mg, IntraVENous, DAILY, First dose on Roz 01/19/24 at 0900, Reconstitute each 40 mg vial with 10 mL of 0.9% sodium chloride and administer each 40 mg vial over at least 2 minutes. 0833 (Given - Provider: Rashid Booth RN) 0814 (Given - Provider: Sarthak Sepulveda, KOURTNEY) pantoprazole (PROTONIX) tablet 40 mg 40 mg, Oral, DAILY BEFORE BREAKFAST, First dose on 01/22/24 at 0700, Until Discontinued, Do not crush or break. 0619 (Given - Provider: Felisabel Maldonado, RN) sodium chloride flush 0.9 % injection 5-40 mL 5-40 mL, IntraVENous, EVERY 12 HOURS SCHEDULED (2 times per day), First dose on Roz 01/19/24 at 0900, Until Discontinued, For Line Patency: Peripheral IV = 5 mL; Midline or Central Line = 10 mL/lumen. If following IV push medication, administer flush at same rate as the IV push. Flush volume is determined by type of infusion therapy being given. For non-viscous solutions use: Peripheral IV = 5 mL Midline or Central Line = 10 mL/lumen For viscous solutions (i.e. blood components, parenteral nutrition, contrast media, or after obtaining blood sample) use: Peripheral IV = 10 mL Midline or Central Line = 20 mL/lumen 0837 (Given - Provider: Rashid Booth RN)1955 (Given - Provider: Heydi Johnson RN) 0814 (Given - Provider: Sarthak Sepulveda, KOURTNEY)202 (Given - Provider: Anjana Donovan RN) 1014 (Given - Provider: Hazel Bowen, KOURTNEY)2100 (Due) thiamine tablet 100 mg 100 mg, Oral, DAILY, First dose on 01/21/24 at 1215, Until Discontinued 1218 (Given - Provider: Sarthak Sepulveda, KOURTNEY) 0842 (Given - Provider: Hazel Bowen, KOURTNEY) Continuous Medication Order 01/20/2024 01/21/2024 01/22/2024 0.45 % sodium chloride infusion (CANCELED) IntraVENous, at 100 mL/hr, CONTINUOUS, Starting on Tue01/20/24 at 1415 1622 (New Bag - Provider: Rashid Booth RN)1823 (Rate/Dose Verify - Provider: Rahsid Booth RN)2113 (Rate/Dose Verify - Provider: Heydi Johnson RN)2311 (Rate/Dose Verify - Provider: Heydi Johnson RN) 0018 (Rate/Dose Verify - Provider: Heydi Johnson RN)0053 (New Bag - Provider: Heydi Johnson RN)0320 (Rate/Dose Verify - Provider: Heydi Johnson RN)0424 (Rate/Dose Verify - Provider: Heydi Johnson RN)0609 (Rate/Dose Verify - Provider: Heydi Johnson RN)0647 (Rate/Dose Verify - Provider: Heydi Johnson RN)0905 (Rate/Dose Change - Provider: Sarthak Sepulveda, RN)0905 (Rate/Dose Change - Provider: Sarthak Sepulveda, RN)1019 (Rate/Dose Verify - Provider: Sarthak Sepulveda, RN)1105 (Rate/Dose Change - Provider: Sarthak Sepulveda, RN)1106 (Rate/Dose Change - Provider: Sarthak Sepulveda, RN)1113 (Stopped - Provider: Sarthak Sepulveda RN) dexmedeTOMIDine (PRECEDEX) 400 mcg in sodium chloride 0.9 % 100 mL infusion (CANCELED) 0.1-1.5 mcg/kg/hr 88.5 kg (2.2125-33.1875 mL/hr, rounded to 2.2-33.2 mL/hr), IntraVENous, CONTINUOUS, Starting on Roz 01/19/24 at 1330, Until 01/21/24 at 1213, Titrate Infusion? Yes, Initial Infusion Dose: 0.4 mcg/kg/hr, Goal of Therapy: RASS of 0 to -1, Contact Provider if: New onset HR less than 50 bpm, New onset SBP less than 90 mmHg, Patient is receiving maximum dose and is not achieving the goal of therapy, If Titrate Infusion? is No : Disregard instructions below. If Titrate infusion? is Yes : Titrate in increments of 0.2 mcg/kg/hr no more frequently than every 30 minutes to goal of therapy. If after titration rate change patient exhibits adverse hemodynamic response, next titration rate change may be adjusted by one-half of the previous rate change. 0033 (Rate/Dose Verify - Provider: Heydi Johnson RN)0130 (Rate/Dose Verify - Provider: Heydi Johnson RN)0132 (Rate/Dose Verify - Provider: Heydi Johnson RN)0217 (New Bag - Provider: Heydi Johnson RN)0238 (Rate/Dose Verify - Provider: Heydi Johnson RN)0238 (Rate/Dose Verify - Provider: Heydi Johnson RN)0339 (Rate/Dose Verify - Provider: Heydi Johnson RN)0439 (Rate/Dose Verify - Provider: Heydi Johnson RN)0608 (Rate/Dose Verify - Provider: Heydi Johnson RN)0649 (Rate/Dose Verify - Provider: Heydi Johnson RN)0723 (Handoff - Provider: Heydi Johnson RN)0833 (Rate/Dose Change - Provider: Rashid Booth RN)0908 (Rate/Dose Change - Provider: Rashid Booth RN)0952 (Rate/Dose Verify - Provider: Rashid Booth RN)1010 (Rate/Dose Change - Provider: Rashid Booth RN)1214 (Rate/Dose Verify - Provider: Rashid Booth RN)1214 (Rate/Dose Verify - Provider: Rashid Booth RN)1326 (Rate/Dose Change - Provider: Rashid Booth RN)1401 (Stopped - Provider: Rashid Booth RN) insulin regular (HUMULIN R;NOVOLIN R) 100 Units in sodium chloride 0.9 % 100 mL infusion (CANCELED) 0.1-50 Units/hr (0.1-50 mL/hr), IntraVENous, CONTINUOUS, Starting on Roz 01/19/24 at 0515, Until Roz 01/19/24 at 1751, Goal Blood Glucose Range: Hyperglycemia: 140-180, Calculate initial bolus with the embedded Insulin Calculator? Yes, Check blood glucose hourly while on infusion / protocol, unless otherwise specified by the calculator. Enter blood glucose value into eMAR calculator for rate guidance and other instruction. Notify provider if infusion is discontinued without appropriate scheduled subcutaneous insulin ordered for patients with Type 1 diabetes mellitus, insulin requiring type 2 diabetic patients, and those requiring greater than 1 unit per hour. These patients should be transitioned to scheduled insulin. Reference: Refer to the Insulin Calculator Algorithm Link 0033 (Rate/Dose Change - Provider: Heydi Johnson RN)0129 (Rate/Dose Change - Provider: Heydi Johnson RN)0130 (Rate/Dose Verify - Provider: Heydi Johnson RN)0238 (Rate/Dose Verify - Provider: Heydi Johnson RN)0238 (Rate/Dose Change - Provider: Heydi Johnson RN)0238 (Rate/Dose Verify - Provider: Heydi Johnson RN)0339 (Rate/Dose Change - Provider: Heydi Johnson RN)0339 (Rate/Dose Verify - Provider: Heydi Johnson RN)0439 (Rate/Dose Change - Provider: Heydi Johnson RN)0439 (Rate/Dose Verify - Provider: Heydi Johnson RN)0608 (Rate/Dose Verify - Provider: Heydi Johnson RN)0648 (Rate/Dose Change - Provider: Heydi Johnson RN)0649 (Rate/Dose Verify - Provider: Heydi Johnson RN)0816 (Rate/Dose Change - Provider: Rashid Booth RN)0910 (Rate/Dose Change - Provider: Rashid Booth RN)1010 (Rate/Dose Change - Provider: Rashid Booth RN)1124 (Rate/Dose Change - Provider: Rashid Booth, RN)1233 (Rate/Dose Change - Provider: Rashid Booth RN)1459 (Rate/Dose Change - Provider: Rashid Booth RN)1606 (Stopped - Provider: Rashid Booth RN) insulin regular (HUMULIN R;NOVOLIN R) 100 Units in sodium chloride 0.9 % 100 mL infusion (CANCELED)(Linked Group 1) 0.1-50 Units/hr (0.1-50 mL/hr), IntraVENous, CONTINUOUS, Starting on Roz 01/19/24 at 1815, Until 01/21/24 at 1717, Goal Blood Glucose Range: DKA: 150-200, Calculate initial bolus with the embedded Insulin Calculator? Yes, Check blood glucose hourly while on infusion / protocol, unless otherwise specified by the calculator. Enter blood glucose value into eMAR calculator for rate guidance and other instruction. Notify provider if infusion is discontinued without appropriate scheduled subcutaneous insulin ordered for patients with Type 1 diabetes mellitus, insulin requiring type 2 diabetic patients, and those requiring greater than 1 unit per hour. These patients should be transitioned to scheduled insulin. Reference: Refer to the Insulin Calculator Algorithm Link 0032 (Rate/Dose Change - Provider: Heydi Johnson RN)0128 (Rate/Dose Change - Provider: Heydi Johnson RN)0234 (Rate/Dose Change - Provider: Heydi Johnson RN)0335 (Rate/Dose Change - Provider: Heydi Johnson RN)0436 (Rate/Dose Change - Provider: Heydi Johnson RN)0546 (Rate/Dose Change - Provider: Heydi Johnson RN)0645 (Rate/Dose Change - Provider: Heydi Johnson RN)0723 (Handoff - Provider: Heydi Johnson RN)0815 (Rate/Dose Change - Provider: Rashid Booth RN)0908 (Rate/Dose Change - Provider: Rashid Booth RN)1009 (Rate/Dose Change - Provider: Rashid Booth RN)1123 (Rate/Dose Change - Provider: Rashid Booth RN)1231 (Rate/Dose Change - Provider: Rashid Booth RN)1457 (Rate/Dose Change - Provider: Rashid Booth RN)1600 (Stopped - Provider: Rashid oBoth RN) propofol infusion (CANCELED) 5-50 mcg/kg/min 88.5 kg (2.655-26.55 mL/hr, rounded to 2.7-26.6 mL/hr), IntraVENous, CONTINUOUS, Starting on Roz 01/19/24 at 1330, Until Tue01/20/24 at 1722, Titrate Infusion? Yes, Initial Infusion Dose: 30 mcg/kg/min, Goal of Therapy: RASS of 0 to -1, Contact Provider if: New onset HR less than 50 bpm, New onset SBP less than 90 mmHg, Patient is receiving maximum dose and is not achieving the goal of therapy, Triglycerides greater than 500 mg/dL, If Titrate Infusion? is No : Disregard instructions below. If Titrate infusion? is Yes : Titrate in increments of 5 mcg/kg/min no more frequently than every 5 minutes to goal of therapy. If after titration rate change patient exhibits adverse hemodynamic response, next titration rate change may be adjusted by one-half of the previous rate change. If patient fails sedation interruption, resume propofol infusion at 50% of previous rate. Do not administer through the same I.V. catheter with blood or plasma. Tubing and any unused portions of propofol vials should be discarded after 12 hours. 0130 (Rate/Dose Verify - Provider: Heydi Johnson RN)0132 (Rate/Dose Verify - Provider: Heydi Johnson RN)0216 (Rate/Dose Verify - Provider: Heydi Johnson RN)0238 (Rate/Dose Verify - Provider: Heydi Johnson RN)0238 (Rate/Dose Verify - Provider: Heydi Johnson RN)0333 (New Bag - Provider: Heydi Johnson RN)0339 (Rate/Dose Verify - Provider: Heydi Johnson RN)0439 (Rate/Dose Verify - Provider: Heydi Johnson RN)0608 (Rate/Dose Verify - Provider: Heydi Johnson RN)0649 (Rate/Dose Verify - Provider: Heydi Johnson RN)0723 (Handoff - Provider: Heydi Johnson RN)0812 (Paused - Provider: Rashid Booth RN)1117 (Rate/Dose Change - Provider: Rashid Booth RN)1118 (New Bag - Provider: Rashid Booth RN)1244 (Rate/Dose Change - Provider: Rashid Booth RN)1247 (Rate/Dose Change - Provider: Rashid Booth RN)1323 (Stopped - Provider: Rashid Booth RN) PRN Medication Order 01/20/2024 01/21/2024 01/22/2024 0.9 % sodium chloride infusion IntraVENous, at 5-250 mL/hr, PRN, if patient receiving piggyback infusions and maintenance fluids are not ordered OR KVO fluids to protect IV site / prevent frequent line interruptions/ long duration, Starting on Roz 01/19/24 at 0353, For piggyback infusion, administer at same rate as piggyback for a total of 25 mL. Enter 25 mL into dose field and piggyback rate into rate field of order. If piggyback is infusing at a rate less than 100 mL/hr, enter 25 mL into dose field and 100 mL/hr into rate field of order. For KVO fluids, enter rate of 20 mL/hr or less into rate field of order. acetaminophen (TYLENOL) suppository 650 mg(Linked Group 2) 650 mg, Rectal, EVERY 6 HOURS PRN, Starting on Roz 01/19/24 at 0353, Until Discontinued, Pain Mild (1-3), Fever, For temp greater than 100.4 F (38 C), Administer if oral route cannot be used. 2013 (See Alternative - Provider: Heydi Johnson RN) acetaminophen (TYLENOL) tablet 650 mg(Linked Group 2) 650 mg, Oral, EVERY 6 HOURS PRN, Starting on Roz 01/19/24 at 0353, Until Discontinued, Pain Mild (1-3), Fever, For temp greater than 100.4 F (38 C), Maximum dose of acetaminophen is 4000 mg from all sources in 24 hours. 2013 (Given - Provider: Heydi Johnson RN) dextrose 10 % infusion IntraVENous, at 100 mL/hr, CONTINUOUS PRN, if blood glucose remains LESS THAN 70 mg/dL after 2 dextrose 10% intravenous boluses or administration of glucagon, Starting on Roz 01/19/24 at 0410, If blood glucose fails to stabilize after 2 dextrose 10% intravenous boluses or glucagon administration, start dextrose 10% infusion at 100 mL/hour and repeat blood glucose at 30 and 60 minutes. If blood glucose is GREATER THAN 70 mg/dL after 60 minutes, discontinue dextrose 10% infusion. dextrose 5 % and 0.45 % sodium chloride infusion IntraVENous, at 150 mL/hr, CONTINUOUS PRN, blood glucose less than 250 mg/dL, Starting on Roz 01/19/24 at 0828, When blood glucose equals 250 mg/dL or below, DISCONTINUE saline IV Fluid using Per Protocol order mode and start using this dextrose containing IV fluid order. DO NOT restart saline infusion if subsequent blood glucose returns above 250 mg/dL. 0122 (Rate/Dose Verify - Provider: Heydi Johnson RN)0130 (Rate/Dose Verify - Provider: Heydi Johnson RN)0131 (New Bag - Provider: Heydi Johnson RN)0238 (Rate/Dose Verify - Provider: Heydi Johnson RN)0238 (Rate/Dose Verify - Provider: Heydi Johnson RN)0339 (Rate/Dose Verify - Provider: Heydi Johnson RN)0439 (Rate/Dose Verify - Provider: Heydi Johnson RN)0608 (Rate/Dose Verify - Provider: Heydi Johnson RN)0630 (Rate/Dose Verify - Provider: Heydi Johnson RN)0649 (Rate/Dose Verify - Provider: Heydi Johnson RN)0724 (Handoff - Provider: Heydi Johnson RN)0730 (Rate/Dose Change - Provider: Rashid Booth RN)0733 (Rate/Dose Change - Provider: Rashid Booth RN)0833 (Rate/Dose Change - Provider: Rashid Booth RN)0833 (Rate/Dose Change - Provider: Rashid Booth RN)0835 (New Bag - Provider: Rashid Booth RN)1435 (Rate/Dose Change - Provider: Rashid Booth RN)1436 (Rate/Dose Change - Provider: Rashid Booth RN)1454 (Rate/Dose Change - Provider: Rashid Booth RN)1454 (Rate/Dose Change - Provider: Rashid Booth RN)1458 (Rate/Dose Verify - Provider: Rashid Booth RN)1549 (Stopped - Provider: Rashid Booth RN) dextrose bolus 10% 125 mL(Linked Group 3) 125 mL, IntraVENous, at 937.5 mL/hr, Administer over 8 Minutes, PRN, Other, Blood glucose 40 - 69 mg/dL and patient NOT ALERT or NPO, Starting on Roz 01/19/24 at 0410, Repeat blood glucose in 15 minutes. If blood glucose remains LESS THAN 70 mg/dL, repeat treatment and recheck blood glucose in 15 minutes x 2. If using glycemic management system, dose as instructed per system. If blood glucose remains LESS THAN 70 mg/dL after 2 intravenous boluses start dextrose 10% at 100 mL/hour and notify provider. dextrose bolus 10% 250 mL(Linked Group 3) 250 mL, IntraVENous, at 937.5 mL/hr, Administer over 16 Minutes, PRN, Other, Blood glucose LESS THAN 40 mg/dL and patient NOT ALERT or NPO, Starting on Roz 01/19/24 at 0410, Repeat blood glucose in 15 minutes. If blood glucose remains LESS THAN 70 mg/dL, repeat treatment and recheck blood glucose in 15 minutes x 2. If using glycemic management system, dose as instructed per system. If blood glucose remains LESS THAN 70 mg/dL after 2 intravenous boluses start dextrose 10% at 100 mL/hour and notify provider. glucagon injection 1 mg 1 mg, SubCUTAneous, PRN, Starting on Roz 01/19/24 at 0410, Until Discontinued, Low blood sugar, Blood glucose LESS THAN 70 mg/dL and patient NOT ALERT or NPO and does not have IV access., After administration, attempt intravenous access and start dextrose 10% at 100 mL/hr. Repeat blood glucose in 15 minutes x 2 and notify provider. glucose chewable tablet 16 g 16 g (4 tablet), Oral, PRN, Starting on Tue01/19/24 at 0410, Until Discontinued, Low blood sugar, If blood glucose is LESS THAN 70 mg/dL and patient is alert and tolerating oral. Give 4 tablets (16g) Repeat blood glucose in 15 minutes. If blood glucose is LESS THAN 70 mg/dL, repeat treatment and recheck blood glucose in 15 minutes x 2. If blood glucose remains LESS THAN 70 mg/dL, notify provider. labetalol (NORMODYNE;TRANDATE) injection 20 mg 20 mg, IntraVENous, EVERY 6 HOURS PRN, Starting on Tue01/20/24 at 1846, Until Discontinued, High Blood Pressure, for SBP>160, hold for HR<60 2013 (Given - Provider: Heydi Johnson, RN) 229 (Given - Provider: Heydi Johnson, RN)131 (Given - Provider: Lakeshia Brown RN - Comment: SBP 181)2013 (Given - Provider: Anjana Donovan, KOURTNEY) 06 (Given - Provider: Jasmin Maldonado, KOURTNEY) LORazepam (ATIVAN) injection 1 mg(Linked Group 4) 1 mg, IntraVENous, EVERY 1 HOUR PRN (WITHDRAWAL), Starting on Roz 01/19/24 at 0716, Until Discontinued, Withdrawal, For alcohol withdrawal., For CIWA score 8 to 10. If both oral and intravenous CIWA medications ordered, use intravenous if unable to tolerate oral equivalent. Reassess CIWA one hour after each dose of medication and as needed. LORazepam (ATIVAN) injection 2 mg(Linked Group 4) 2 mg, IntraVENous, EVERY 1 HOUR PRN (WITHDRAWAL), Starting on Roz 01/19/24 at 0716, Until Discontinued, Withdrawal, For alcohol withdrawal., For CIWA score 11 to 15. If both oral and intravenous CIWA medications ordered, use intravenous if unable to tolerate oral equivalent. Reassess CIWA one hour after each dose of medication and as needed. LORazepam (ATIVAN) tablet 1 mg(Linked Group 4) 1 mg, Oral, EVERY 1 HOUR PRN (WITHDRAWAL), Starting on Roz 01/19/24 at 0716, Until Discontinued, For alcohol withdrawal., For CIWA score 8 to 10. Reassess CIWA one hour after each dose of medication and as needed. LORazepam (ATIVAN) tablet 2 mg(Linked Group 4) 2 mg, Oral, EVERY 1 HOUR PRN (WITHDRAWAL), Starting on Roz 01/19/24 at 0716, Until Discontinued, For alcohol withdrawal., For CIWA score 11 to 15. Reassess CIWA one hour after each dose of medication and as needed. magnesium sulfate 2000 mg in 50 mL IVPB premix 2,000 mg, IntraVENous, at 25 mL/hr, Administer over 2 Hours, PRN, Other, Per IV Magnesium Replacement Protocol, Starting on Roz 01/19/24 at 0353, Mg Lab Replacement Action 1.4-1.6 2 gram IVPB x 1 doses (2 gram Total) 1.0-1.3 2 gram IVPB x 2 doses (4 gram Total) less than 1.0 CALL PHYSICIAN and 2 gram IVPB x 2 doses (4 gram Total) Infuse at 1 gram/hr Repeat Mag level 1 hour after final administration Protocol not for use in Patients with CrCl less than 30mL/min melatonin tablet 3 mg (CANCELED) 3 mg, Oral, NIGHTLY PRN, Starting on 01/22/24 at 0219, Until 01/22/24 at 0343, Sleep 0307 (Given - Provider: Jasmin Maldonado, RN) melatonin tablet 5 mg 5 mg, Oral, NIGHTLY PRN, Starting on 01/21/24 at 0036, Until Discontinued, Sleep 0046 (Given - Provider: Heydi Johnson, KOURTNEY) ondansetron (ZOFRAN) injection 4 mg(Linked Group 5) 4 mg, IntraVENous, EVERY 6 HOURS PRN, Starting on Roz 01/19/24 at 0353, Until Discontinued, Nausea, Vomiting, Administer if oral route cannot be used. 1254 (Given - Provider: Rashid Booth, KOURTNEY) ondansetron (ZOFRAN-ODT) disintegrating tablet 4 mg(Linked Group 5) 4 mg, Oral, EVERY 8 HOURS PRN, Starting on Roz 01/19/24 at 0353, Until Discontinued, Nausea, Vomiting 1254 (See Alternative - Provider: Rashid Booth, RN) polyethylene glycol (GLYCOLAX) packet 17 g 17 g, Oral, DAILY PRN, Starting on Roz 01/19/24 at 0353, Until Discontinued, Constipation, First line therapy for constipation potassium chloride 10 mEq/100 mL IVPB (Peripheral Line)(Linked Group 6) 10 mEq, IntraVENous, PRN, Starting on Roz 01/19/24 at 0353, Until Discontinued, at 100 mL/hr, Per IV Potassium Replacement Protocol, Use when central line is not available for replacement. K Lab Replacement Action 3.1-3.5 10 mEq IVPB x 4 doses (40 mEq Total) 2.7-3.0 10 mEq IVPB x 6 doses (60 mEq Total) less than 2.7 CALL PHYSICIAN and 10 mEq IVPB x 6 doses (60 mEq Total) Infuse at 10 mEq/hr Repeat Potassium lab 1 hour after final administration. Protocol not for use in Patients with CrCl less than 30mL/min potassium chloride 10 mEq/100 mL IVPB (Peripheral Line) 10 mEq, IntraVENous, PRN, Starting on Roz 01/19/24 at 0827, Until Discontinued, at 100 mL/hr, Potassium IV Replacement, Above 5.2 No dose 4.3 to 5.2 10 mEq IVPB x 2 doses (20 mEq total) 3.4 to 4.2 10 mEq IVPB x 3 doses (30 mEq total) Below 3.4 10 mEq IVPB x 4 doses (40 mEq total) Infuse at 10 mEq/hr. Repeat Potassium lab 1 hour after final administration. Can be administered either through peripheral IV or central IV. 0939 (New Bag - Provider: Rashid Booth RN)1050 (New Bag - Provider: Rashid Booth RN)1150 (Stopped - Provider: Rashid Booth RN) potassium chloride 20 mEq/50 mL IVPB (Central Line)(Linked Group 6) 20 mEq, IntraVENous, PRN, Starting on Roz 01/19/24 at 0353, Until Discontinued, at 50 mL/hr, Per IV Potassium Replacement Protocol, Use first line when central line is available for replacement. K Lab Replacement Action 3.1-3.5 20 mEq IVPB x 2 doses (40 mEq Total) 2.7-3.0 20 mEq IVPB x 3 doses (60 mEq Total) less than 2.7 CALL PHYSICIAN and 20 mEq IVPB x 3 doses (60 mEq Total) Infuse at 20 mEq/hr Repeat Potassium lab 1 hour after final administration. Protocol not for use in Patients with CrCl less than 30mL/min promethazine (PHENERGAN) injection 6.25 mg 6.25 mg, IntraMUSCular, EVERY 6 HOURS PRN, Starting on Roz 01/19/24 at 0511, Until Discontinued, Nausea, Only to be given as IM injection. sodium chloride flush 0.9 % injection 10 mL 10 mL, IntraVENous, PRN, Starting on Roz 01/19/24 at 1614, Until Discontinued, Line Care sodium chloride flush 0.9 % injection 5-40 mL 5-40 mL, IntraVENous, PRN, Starting on Roz 01/19/24 at 0353, Until Discontinued, Line Care, After every IV line use, For Line Patency: Peripheral IV = 5 mL; Midline or Central Line = 10 mL/lumen. If following IV push medication, administer flush at same rate as the IV push. Flush volume is determined by type of infusion therapy being given. For non-viscous solutions use: Peripheral IV = 5 mL Midline or Central Line = 10 mL/lumen For viscous solutions (i.e. blood components, parenteral nutrition, contrast media, or after obtaining blood sample) use: Peripheral IV = 10 mL Midline or Central Line = 20 mL/lumen sodium phosphate 15 mmol in sodium chloride 0.9 % 250 mL IVPB 15 mmol, IntraVENous, at 83.3 mL/hr, Administer over 180 Minutes, PRN, Phosphate IV Replacement, Starting on Roz 01/19/24 at 0827, Phos level Replacement Action 1.5 to 2.7 mg/dL 15 mmol IVPB over 3 hours LESS than 1.5 mg/dL CALL PHYSICIAN and 15 mmol IVPB over 3 hours Repeat Phos level 1 hour after administration. Protocol not for use in Patients with CrCl less than 30mL/min 2022 (New Bag - Provider: Heydi Johnson, KOURTNEY)2112 (Rate/Dose Verify - Provider: Heydi Johnson RN)2323 (Stopped - Provider: Heydi Johnson RN)232 (Stopped - Provider: Heydi Johnson RN) Linked Groups Order Group 1: insulin regular (HUMULIN R;NOVOLIN R) 100 Units in sodium chloride 0.9 % 100 mL infusion (CANCELED)Jump to med 0.1-50 Units/hr (0.1-50 mL/hr), IntraVENous, CONTINUOUS, Starting on Roz 01/19/24 at 1815, Until 01/21/24 at 1717
Goal Blood Glucose Range: DKA: 150- 200
Calculate initial bolus with the embedded Insulin Calculator? Yes
Check blood glucose hourly while on infusion / protocol, unless otherwise specified by the calculator. Enter blood glucose value into eMAR calculator for rate guidance and other instruction. Notify provider if infusion is discontinued without appropriate scheduled subcutaneous insulin ordered for patients with Type 1 diabetes mellitus, insulin requiring type 2 diabetic patients, and those requiring greater than 1 unit per hour. These patients should be transitioned to scheduled insulin. Reference: Refer to the Insulin Calculator Algorithm Link
Group 2: acetaminophen (TYLENOL) tablet 650 mgJump to med 650 mg, Oral, EVERY 6 HOURS PRN, Starting on Roz 01/19/24 at 0353, Until Discontinued, Pain Mild (1-3), Fever, For temp greater than 100.4 F (38 C)
Maximum dose of acetaminophen is 4000 mg from all sources in 24 hours.
Or acetaminophen (TYLENOL) suppository 650 mgJump to med 650 mg, Rectal, EVERY 6 HOURS PRN, Starting on Roz 01/19/24 at 0353, Until Discontinued, Pain Mild (1-3), Fever, For temp greater than 100.4 F (38 C)
Administer if oral route cannot be used.
Group 3: dextrose bolus 10% 125 mLJump to med 125 mL, IntraVENous, at 937.5 mL/hr, Administer over 8 Minutes, PRN, Other, Blood glucose 40 - 69 mg/dL and patient NOT ALERT or NPO, Starting on Roz 01/19/24 at 0410
Repeat blood glucose in 15 minutes. If blood glucose remains LESS THAN 70 mg/dL, repeat treatment and recheck blood glucose in 15 minutes x 2. If using glycemic management system, dose as instructed per system. If blood glucose remains LESS THAN 70 mg/dL after 2 intravenous boluses start dextrose 10% at 100 mL/hour and notify provider.
Or dextrose bolus 10% 250 mLJump to med 250 mL, IntraVENous, at 937.5 mL/hr, Administer over 16 Minutes, PRN, Other, Blood glucose LESS THAN 40 mg/dL and patient NOT ALERT or NPO, Starting on Roz 01/19/24 at 0410
Repeat blood glucose in 15 minutes. If blood glucose remains LESS THAN 70 mg/dL, repeat treatment and recheck blood glucose in 15 minutes x 2. If using glycemic management system, dose as instructed per system. If blood glucose remains LESS THAN 70 mg/dL after 2 intravenous boluses start dextrose 10% at 100 mL/hour and notify provider.
Group 4: LORazepam (ATIVAN) tablet 1 mgJump to med 1 mg, Oral, EVERY 1 HOUR PRN (WITHDRAWAL), Starting on Roz 01/19/24 at 0716, Until Discontinued, For alcohol withdrawal.
For CIWA score 8 to 10. Reassess CIWA one hour after each dose of medication and as needed.
Or LORazepam (ATIVAN) injection 1 mgJump to med 1 mg, IntraVENous, EVERY 1 HOUR PRN (WITHDRAWAL), Starting on Roz 01/19/24 at 0716, Until Discontinued, Withdrawal, For alcohol withdrawal.
For CIWA score 8 to 10. If both oral and intravenous CIWA medications ordered, use intravenous if unable to tolerate oral equivalent. Reassess CIWA one hour after each dose of medication and as needed.
Or LORazepam (ATIVAN) tablet 2 mgJump to med 2 mg, Oral, EVERY 1 HOUR PRN (WITHDRAWAL), Starting on Roz 01/19/24 at 0716, Until Discontinued, For alcohol withdrawal.
For CIWA score 11 to 15. Reassess CIWA one hour after each dose of medication and as needed.
Or LORazepam (ATIVAN) injection 2 mgJump to med 2 mg, IntraVENous, EVERY 1 HOUR PRN (WITHDRAWAL), Starting on Roz 01/19/24 at 0716, Until Discontinued, Withdrawal, For alcohol withdrawal.
For CIWA score 11 to 15. If both oral and intravenous CIWA medications ordered, use intravenous if unable to tolerate oral equivalent. Reassess CIWA one hour after each dose of medication and as needed.
Group 5: ondansetron (ZOFRAN-ODT) disintegrating tablet 4 mgJump to med 4 mg, Oral, EVERY 8 HOURS PRN, Starting on Roz 01/19/24 at 0353, Until Discontinued, Nausea, Vomiting Or ondansetron (ZOFRAN) injection 4 mgJump to med 4 mg, IntraVENous, EVERY 6 HOURS PRN, Starting on Roz 01/19/24 at 0353, Until Discontinued, Nausea, Vomiting
Administer if oral route cannot be used.
Group 6: potassium chloride 20 mEq/50 mL IVPB (Central Line)Jump to med 20 mEq, IntraVENous, PRN, Starting on Roz 01/19/24 at 0353, Until Discontinued, at 50 mL/hr, Per IV Potassium Replacement Protocol
Use first line when central line is available for replacement. K Lab Replacement Action 3.1-3.5 20 mEq IVPB x 2 doses &n bsp;& nbsp; (40 mEq Total) 2.7-3.0 20 mEq IVPB x 3 doses &nbs p;&nb sp; (60 mEq Total) less than 2.7 CALL PHYSICIAN and &nbs p;&nb sp; 20 mEq IVPB x 3 doses &n bsp;& nbsp; (60 mEq Total) Infuse at 20 mEq/hr Repeat Potassium lab 1 hour after final administration. Protocol not for use in Patients with CrCl less than 30mL/min
Or potassium chloride 10 mEq/100 mL IVPB (Peripheral Line)Jump to med 10 mEq, IntraVENous, PRN, Starting on Roz 01/19/24 at 0353, Until Discontinued, at 100 mL/hr, Per IV Potassium Replacement Protocol
Use when central line is not available for replacement. K Lab Replacement Action 3.1-3.5 10 mEq IVPB x 4 doses &nbs p;&nb sp; (40 mEq Total) 2.7-3.0 10 mEq IVPB x 6 doses &n bsp;& nbsp; (60 mEq Total) less than 2.7 CALL PHYSICIAN and &n bsp;& nbsp; 10 mEq IVPB x 6 doses &n bsp;& nbsp; (60 mEq Total) Infuse at 10 mEq/hr Repeat Potassium lab 1 hour after final administration. Protocol not for use in Patients with CrCl less than 30mL/min
Care Teams (unrecognized sec tion and content) Postdoctoral Scientist Relationship Specialty Start Date End Date Paulina Winters MD [address] [place] [address] PCP - General Family Medicine 10/27/21 Postdoctoral Scientist Relationship Specialty Start Date End Date Paulina Winters MD [address] [place] [address] PCP - General Family Medicine 10/27/21 Postdoctoral Scientist Relationship Specialty Start Date End Date Paulina Winters MD [address] [place] [id number] PCP - General Family Medicine 09/21/23 Postdoctoral Scientist Relationship Specialty Start Date End Date Paulina Winters MD [address] [place] [id number] PCP - General Family Medicine 10/27/21 Postdoctoral Scientist Relationship Specialty Start Date End Date Paulina Winters MD [address] [place] [id number] PCP - General Family Medicine 10/27/21 Ordered Prescriptions (unrec ognized section and content) Prescription Sig Dispensed Refills Start Date End Da te hydroCHLOROthiazide (HYDRODIURIL) 25 MG tablet Take 1 tablet by mouth every morning for 14 days 14 tablet 0 04/20/2022 05/04/2022 Prescription Sig Dispensed Refills Start Date End Da te folic acid (FOLVITE) 1 MG tablet Take 1 tablet by mouth daily 30 tablet 3 01/23/2024 NIFEdipine (PROCARDIA XL) 30 MG extended release tablet Take 1 tablet by mouth daily 30 tablet 3 01/23/2024 carvedilol (COREG) 12.5 MG tablet Take 1 tablet by mouth 2 times daily (with meals) 60 tablet 3 01/22/2024 insulin glargine (LANTUS SOLOSTAR) 100 UNIT/ML injection pen Inject 20 Units into the skin nightly 5 Adjustable Dose Pre-filled Pen Syringe 3 01/22/2024 insulin lispro (HUMALOG) 100 UNIT/ML SOLN injection vial Inject 0-16 Units into the skin 3 times daily (with meals) 30 mL 1 01/22/2024 (unrecognized sect ion and content) No Status Records FoundNo Status Records FoundNo Status Records FoundNo Status Records FoundNo Status Records FoundNo Status Records FoundNo Status Records Found INFORMATION SOURCE (unrecogn ized section and content) DATE CREATED AUTHOR 01/27/2023 [facility] DATE CREATED AUTHOR AUTHOR'S ORGANIZ ATION 08/14/[address] [facility] DATE CREATED AUTHOR AUTHOR'S ORGANIZ ATION 10/23/2023 [facility] DATE CREATED AUTHOR AUTHOR'S ORGANIZ ATION 01/20/2024 [facility] DATE CREATED AUTHOR AUTHOR[facility]S [facility]IZ ATION [facility] DATE CREATED AUTHOR AUTHOR'S ORGANIZ ATION 03/01/2024 [facility] DATE CREATED AUTHOR AUTHOR'S ORGANIZ ATION 03/02/2024 [facility] FOR RECORDS PERTAINING TO PATIENTS WHO ARE [...] BE BASED ON THE PRIMARY CLINICAL RECORDS. [employer] provides no warranty or guarantee of the accuracy or completeness of information in this document.
--- NOTE | 2024-06-08 10:18 | XR_ITS ---
The [address] [address] Patient Name: JOSÉ LUIS GORMAN MRN: [id number] date: 1975 Sex: M Assigned Patient Location: [facility] Current Patient Location: Accession/Order Number: [id number] Exam Date: 06/08/2024 10:08 Report Date: 06/10/2024 20:18 At the request of: PAULINA WINTERS Procedure: XR cervical spine 2-3V EXAMINATION: XR cervical spine 2-3V, XR lumbar spine min 4V HISTORY: Neck Pain , back pain COMPARISON: No relevant comparison available. FINDINGS: BONES: Grading of normal cervical lordosis. Normal alignment of the lumbar spine. No acute fracture or spondylolisthesis. [id number]-mv-[id number] facet osteoarthropathy in the cervical and lumbar spine DISC SPACES: Moderate narrowing L5-S1 PARASPINOUS: Negative. No paraspinous abnormality is seen. OTHER: Negative. XR/XR cervical spine 2-3V IMPRESSION: Moderate degenerative spondylosis of the cervical and lumbar spine Loss of normal cervical lordosis Electronically authenticated by: RAMIRO BURNETT Date: 06/10/2024 20:18
--- NOTE | 2024-06-08 10:18 | XR_ITS ---
The [address] [address] Patient Name: JOSÉ LUIS GORMAN MRN: [id number] date: 1975 Sex: M Assigned Patient Location: [facility] Current Patient Location: Accession/Order Number: [id number] Exam Date: 06/08/2024 10:08 Report Date: 06/10/2024 20:18 At the request of: PAULINA WINTERS Procedure: XR lumbar spine min 4V EXAMINATION: XR cervical spine 2-3V, XR lumbar spine min 4V HISTORY: Neck Pain , back pain COMPARISON: No relevant comparison available. FINDINGS: BONES: Grading of normal cervical lordosis. Normal alignment of the lumbar spine. No acute fracture or spondylolisthesis. Jeqs-[id number]-pxlvcchh facet osteoarthropathy in the cervical and lumbar spine DISC SPACES: Moderate narrowing L5-S1 PARASPINOUS: Negative. No paraspinous abnormality is seen. OTHER: Negative. XR/XR lumbar spine min 4V IMPRESSION: Moderate degenerative spondylosis of the cervical and lumbar spine Loss of normal cervical lordosis Electronically authenticated by: RAMIRO BURNETT Date: 06/10/2024 20:18
== END 2024-06-08 09:47 | disposition home or self-care (01) ==
LOC: RAD 09:46
PROVIDERS: PCP Family Medicine; Visit Provider Family Medicine
DX: M54.2 Cervicalgia (principal); M53.86 Other specified dorsopathies, lumbar region; M47.816 Spondylosis without myelopathy or radiculopathy, lumbar region; M47.812 Spondylosis without myelopathy or radiculopathy, cervical region
CPT/HCPCS: 72040; 72110

== ENCOUNTER 2024-06-14 10:42 | Outpatient (OUT) | payer OTHER, SELFPAY ==
--- NOTE | 2024-06-14 10:44 | MR_ITS ---
The [address] [address] Patient Name: JOSÉ LUIS GORMAN MRN: [id number] date: 1975 Sex: M Assigned Patient Location: MRI Current Patient Location: MRI Accession/Order Number: [id number] Exam Date: 06/14/2024 10:50 Report Date: 06/14/2024 14:47 At the request of: PAULINA WINTERS Procedure: MR head/brain wo/w con MR head/brain wo/w con, 06/14/2024 10:50 AM EDT INDICATION: Abnormal Brain MRI R90.89 COMPARISON: Prior MRI of the head dated 03/21/2024 TECHNIQUE: Multiplanar, multisequential MRI images of brain were obtained without and with injection of contrast. FINDINGS: The cerebral sulci as well as ventricular system are appropriate for age. There is no restricted diffusion. Hyperintensities on T2 and FLAIR images in the kenney radiata and centrum semiovale with sparing of U fibers are nonspecific, statistically most likely consistent with microvascular ischemic changes. 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 There is no intracranial mass, mass effect, midline shift, intra or extra-axial fluid collection or large hemorrhage. No definite abnormal enhancing lesion is noted. Normal flow-void in the intracranial vessels is noted. The visualized portions of orbits, mastoid air cells as well as paranasal sinuses are unremarkable. MR/MR head/brain wo/w con IMPRESSION: No acute intracranial process is noted. 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 Electronically authenticated by: ARTHUR HERRERA Date: 06/14/2024 14:47
== END 2024-06-14 10:43 | disposition home or self-care (01) ==
LOC: MRI 10:42
PROVIDERS: PCP Family Medicine; Visit Provider Family Medicine
DX: R90.89 Other abnormal findings on diagnostic imaging of central nervous system (principal)
CPT/HCPCS: 70553; A9575

== ENCOUNTER 2024-10-30 11:20 | Outpatient (OUT) | payer OTHER, SELFPAY ==
[2024-10-30 11:46] LABS: Basophils Absolute Auto 0.1 10^3/uL (0.0-0.1); Basophils Percent Auto 0.9 % (0.2-2.0); Eosinophils Absolute Auto 0.2 10^3/uL (0.0-0.7); Eosinophils Percent Auto 3.5 % (0.9-7.0); Hemoglobin 7.6 g/dL (14.0-18.0); Immature Granulocytes Abs Auto 0.01 10^3/uL (0.00-0.03); Immature Granulocytes Pct Auto 0.2 % (0.0-0.5); Lymphocytes Percent Auto 17.2 % (20.5-60.0); Mean Corpuscular HGB Conc 32.3 g/dL (29.9-35.2); Mean Corpuscular Hemoglobin 29.3 pg (25.9-34.0); Mean Corpuscular Volume 90.7 fL (80.0-94.0); Monocytes Absolute Auto 0.6 10^3/uL (0.3-0.8); Monocytes Percent Auto 11.1 % (1.7-12.0); Neutrophils Absolute Auto 3.8 10^3/uL (1.4-6.5); Neutrophils Percent Auto 67.1 % (43.0-75.0); Platelet Count 177 10^3/uL (150-450); Red Blood Count 2.59 10^6/uL (4.70-6.10); White Blood Count 5.7 10^3/uL (4.0-11.0)
[2024-10-30 11:56] LABS: Hematocrit 23.5 % (42.0-54.0)
[2024-10-30 12:12] LABS: Alanine Aminotransferase 31 U/L (16-63); Albumin Globulin Ratio 0.9; Albumin Level 2.8 g/dL (3.4-5.0); Alkaline Phosphatase 88 U/L (46-116); Anion Gap 15.3; Aspartate Amino Transferase 24 U/L (15-37); BUN Creatinine Ratio 22.5; Bilirubin Total 0.2 mg/dL (0.2-1.0); Calcium 8.2 mg/dL (8.5-10.1); Carbon Dioxide 22.3 mmol/L (21.0-32.0); Chloride 110 mmol/L (98-107); Estimated GFR (African America 30 (>=60 mL/min/1.73m^2); Estimated GFR (Non-African Ame 25 (>=60 mL/min/1.73m^2); Globulin 3.2 g/dL; Glucose 110 mg/dL (74-106); Potassium 5.6 mmol/L (3.5-5.1); Sodium 142 mmol/L (136-145)
[2024-10-30 12:41] LABS: Free T4 0.85 ng/dL (0.76-1.46)
== END 2024-10-30 11:21 | disposition home or self-care (01) ==
LOC: LAB 11:21
PROVIDERS: PCP Family Medicine; Visit Provider Family Medicine
DX: R60.9 Edema, unspecified (principal); I50.30 Unspecified diastolic (congestive) heart failure; I11.0 Hypertensive heart disease with heart failure
CPT/HCPCS: 36415; 80053; 83880; 84439; 84443; 84484; 85025

== ENCOUNTER 2024-11-04 18:24 | Inpatient (IN) | payer OTHER, SELFPAY ==
[2024-11-04] VITALS (24 sets, daily range): BP systolic 127–160; BP diastolic 70–107; PULSE 60–81; TEMP 36.5–36.9; O2SAT 90–100; BMI 34.4
--- NOTE | 2024-11-04 18:34 | ECG_ITS ---
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
--- NOTE | 2024-11-04 18:34 | XR_ITS ---
The [place] [id number] Patient Name: JOSÉ LUIS GORMAN MRN: [id number] date: 1975 Sex: M Assigned Patient Location: ER Current Patient Location: ER Accession/Order Number: [id number] Exam Date: 11/04/2024 19:00 Report Date: 11/04/2024 20:17 At the request of: SAMANTA ORR Procedure: XR chest 1V EXAMINATION: XR chest 1V, , 11/04/2024 7:00 PM EST INDICATION: edema, anasarca HISTORY: Ordering Provider Reason for Exam: edema, anasarca Technologist Note: Additional: COMPARISON: None. TECHNIQUE: Chest x-ray: One view. FINDINGS: No pneumothorax, pleural effusion or focal airspace consolidation. Heart is normal in size. Loop recorder device is seen projecting over the left lower chest. Bony thorax is unremarkable. XR/XR chest 1V IMPRESSION: No acute cardiopulmonary process. Electronically authenticated by: HUONG CHUA Date: 11/04/2024 20:17
--- OUTSIDE RECORDS SUMMARY | 2024-11-04 18:35 | XMS_ITS | CCD ---
Author Organization [facility] Care Team Providers Care Rod Piler Name Role Phone Vincent Winters MD Primary Care Provider [phone] SINGH ., DR GALLARDO Attending Unavailable HOY [...] JACOB Consulting Unavailable KATELIN IGNACIO Consulting Unavailable HODanya ., DR GALLARDO Primary Care Unavailable PAY ., DR MANRIQUEZ Consulting Unavailable PAY ., DR MANRIQUEZ Attending Unavailable PAY ., DR MANRIQUEZ Admitting Unavailable HOY ., DR GALLARDO Consulting Unavailable HOY ., DR GALLARDO Attending Unavailable HOY ., DR GALLARDO Admitting Unavailable HOY ., DR GALLARDO Primary Care Unavailable ANTLER, DR RAMIRO Cramer Consulting Unavailable HOY ., DR GALLARDO Attending Unavailable HOY ., DR GALLARDO Primary Care Unavailable HOY ., DR GALLARDO Consulting Unavailable HOY ., DR GALLARDO Admitting Unavailable HOY ., DR GALLARDO Attending Unavailable SINGH ., DR GALLARDO Primary Care Unavailable SINGH ., DR GALLARDO Admitting Unavailable SINGH ., DR GALLARDO Consulting Unavailable JACQUELINE PACHECO Procedure Practitioner Unava ilable SANG, BONNER H Attending Unavailable SINGH ., DR GALLARDO Primary Care Unavailable SANG, BONNER H Admitting Unavailable RADHA, DR FITZGERALD Consulting Unavailable JACQUELINE PACHECO Consulting Unavailable SANG, BONNER H Consulting Unavailable DAMIAN CONTRERAS Consulting Unavailable JAILENE ., EVELINE FITZGERALD Consulting Unavailable SISTER, JUSTIN Consulting Unavailable GEMBUS, LUDMILA Consulting Unavailable SINGH ., DR GALLARDO Attending Unavailable SINGH ., DR GALLARDO Primary Care Unavailable SINGH ., DR GALLARDO Admitting Unavailable Stefan FRIAS, Jarod Orantes Attending UnavailVincent Hemphill MD Primary Care Unavaila wesly FRIAS, Jarod Orantes Attending UnavailVincent Hemphill MD Primary Care Unavaildex FRIAS, Jarod Orantes Attending UnavailVincent Hemphill MD Primary Care UnavailVincent Erickson MD Primary Care Provider [phone] VINCENT WINTERS Referring Unavailable VINCENT WINTERS Primary Care Unavailable Vincent Winters MD Primary Care Provider [phone] Vincent Winters MD Primary Care Provider Vincent Winters Primary Care Physician CONSULT, NEUROLOGY Consulting Unavailable KARL BIRD Attending Unavailkeren e KEN BIRDYAJEREL Admitting Unavailabl e VINCENT WINTERS Primary Care Unavailable Felix LUKE Attending Unavailable Vincent Winters Referring Unavailable BRAYAN, STANLEY Admitting Unavailable CINTRA, RASHAD G Referring Unavailable VINCENT WINTERS Primary Care Unavailable RHODA LUNA Attending Unavailable CHIRRI, ADDY Consulting Unavailable RAMY SANCHEZ S Consulting Unavailable ALI, CHRISTOPHER VIVIAN Consulting Unavailable STEVE ALVARADO Referring Unavailable VINCENT WINTERS Primary Care Unavailable SULSAMMIE SIDDIQI Consulting Unavailable AVASTHI, TRINO Attending Unavailable AVASTHI, TRINO Admitting Unavailable CHIRRI, ADDY Consulting Unavailable AORUDY LAMAR Consulting Unavailable CHINYADZA, TANYANYIWA W Consulting UnavailRHODA Castro Referring Unavailable VINCENT WINTERS Primary Care Unavailable VINCENT WINTERS Primary Care Unavailable RASHAD CHAVEZ Attending Unavailable VINCENT WINTERS Primary Care Unavailable STEVE ALVARADO Attending Unavailable Allergies Allergy Classification Reported Allergen(s) Allergy Type Date of Onset Reaction(s) Facility (2 sources) No Known Medication Allergies; Translations: [No Known Medication Allergies] Propensity to adverse reactions to drug (disorder) [facility] Repository Medications Current Medications Medication Drug Class(es) Dates Sig (Normalized) Sig (Original) amLODIPine 10 mg oral tablet (5 sources) Dihydropyridine Calcium Channel Arlene Start: 10-07-2024 take 1 tablet by mouth once daily amLODIPine (NORVASC) 10 MG tablet Take 1 tablet by mouth daily 30 tablet 3 10/07/2024 Active Start: 10-06-2024 Start: 09-30-2024 End: 10-05-2024 aspirin 81 mg chewable tablet (3 sources) Platelet Aggregation Inhibitor, Nonsteroidal Anti-inflammatory Drug Start: 10-07-2024 take 1 tablet by mouth once daily aspirin 81 MG chewable tablet Take 1 tablet by mouth daily 30 tablet 3 10/07/2024 Active Start: 09-28-2024 atorvastatin 40 mg oral tablet (4 sources) HMG-CoA Reductase Inhibitor Start: 09-28-2024 take 1 tablet by mouth once daily atorvastatin (LIPITOR) 40 MG tablet Take 1 tablet by mouth nightly 30 tablet 3 10/06/2024 Active Start: 09-22-2023 End: 09-24-2023 take 10 mg by mouth once daily at bedtime 10 mg, Oral, DAILY AT BEDTIME, First dose on Roz 09/22/23 at 2100, Until Discontinued Blood Pressure KIT (1 source) Start: 10-05-2024 Blood Pressure KIT Check your BP at least twice a day & record in a log to discuss with your PCP 1 kit 1 10/05/2024 Active carvedilol 25 mg oral tablet (11 sources) alpha-Adrenergi c Arlene, beta-Adrenergic Arlene Start: 10-06-2024 take 1 tablet by mouth twice daily at mealtime carvedilol (COREG) 25 MG tablet Take 1 tablet by mouth 2 times daily (with meals) 60 tablet 3 10/06/2024 Active Start: 01-21-2024 End: 10-06-2024 Start: 01-20-2024 End: 01-21-2024 take 6.25 mg by mouth twice daily at mealtime 6.25 mg, Oral, 2 TIMES DAILY WITH MEALS, First dose on Tue01/20/24 at 1700, Until Discontinued Administer with food to minimize the risk of orthostatic hypotension fentaNYL (SUBLIMAZE) 1,000 mcg in sodium chloride 0.9% 100 mL infusion (1 source) Start: 09-28-2024 25 mcg/hr (2.5 mL/hr), IntraVENous, CONTINUOUS, Starting on Tue09/28/24 at 1145, Until Discontinued, Titrate Infusion? Yes, Initial Infusion Dose: 50 mcg/hr, Goal of Therapy is: RASS of 0 to -1, Contact Provider if: Patient is receiving the maximum dose and is not achieving the goal of therapy, Titrate to RASS -1 to -2 Dose Range: 25 to 200 mcg/hr Max dose: 200 mcg/hr Contact physician if max dose does not achieve desired response If RASS greater than goal: increase fentanyl infusion by 25mcg/hr no faster than every hour If RASS at goal: continue same rate If RASS below goal: decrease fentanyl infusion by 25mcg/hr no faster than every hour If patient fails sedation interruption, resume fentanyl titration at previous rate folic acid 1 mg oral tablet (6 sources) Start: 01-21-2024 take 1 tablet by mouth once daily folic acid (FOLVITE) 1 MG tablet Take 1 tablet by mouth daily 30 tablet 3 01/23/2024 Active glucagon (rdna) 1 mg injection (2 sources) Antihypoglycemic Agent Start: 09-29-2024 Start: 01-19-2024 inject 1 mg by subcu taneous injection every hour as needed 1 mg, SubCUTAneous, PRN, Starting on Tue01/19/24 at 0410, Until Discontinued, Low blood sugar, Blood glucose LESS THAN 70 mg/dL and patient NOT ALERT or NPO and does not have IV access. After administration, attempt intravenous access and start dextrose 10% at 100 mL/hr. Repeat blood glucose in 15 minutes x 2 and notify provider. 1000 ml glucose 100 mg/ml in jection (4 sources) Start: 09-29-2024 Start: 09-29-2024 Start: 09-28-2024 dextrose bolus 10% 125 mL Start: 01-19-2024 take 1 mL intravenou sly every hour IntraVENous, at 100 mL/hr, CONTINUOUS [...] after 60 minutes, discontinue dextrose 10% infusion. 1 ml heparin sodium, porcine 5000 unt/ml prefilled syringe (6 sources) Unfractionated Heparin, Anti-coagulant Start: 09-30-2024 Start: 09-28-2024 End: 09-29-2024 Start: 09-28-2024 End: 09-29-2024 Start: 09-28-2024 End: 09-28-2024 Start: 01-19-2024 inject 1 dose by sub cutaneous injection three times daily 5,000 Units, SubCUTAneous, EVERY 8 HOURS SCHEDULED (3 times per day), First dose on Roz 01/19/24 at 0600, Until Discontinued 1 ml hydrALAZINE hydrochlori de 20 mg/ml injection (3 sources) Arteriolar Vasodilator Start: 09-28-2024 End: 09-29-2024 Start: 09-23-2023 End: 09-24-2023 take 20 mg intravenously every four hours as needed hydrALAZINE (APRESOLINE) injection 20 mg 3 ml insulin glargine 100 unt/ml pen injector (15 sources) Insulin Analog Start: 10-06-2024 insulin glargi ne (LANTUS SOLOSTAR) 100 UNIT/ML injection pen Inject 25 Units into the skin nightly 5 Adjustable Dose Pre-filled Pen Syringe 3 10/06/2024 Active Start: 09-30-2024 Start: 09-29-2024 End: 09-30-2024 Start: 01-22-2024 inject 20 [IU] by bustos bcutaneous injection once daily 20 Units, SubCUTAneous, NIGHTLY, First dose (after last modification) on Tue01/22/24 at 2100, Until Discontinued Start: 01-22-2024 End: 10-06-2024 Start: 01-22-2024 insulin glargi ne (LANTUS SOLOSTAR) 100 UNIT/ML injection pen Inject 20 Units into the skin nightly 5 Adjustable Dose Pre-filled Pen Syringe 3 01/22/2024 Suspended Start: 01-21-2024 End: 01-22-2024 inject 15 [IU] [...] insulin lispro 100 unt/ml in jectable solution (15 sources) Insulin Analog Start: 01-22-2024 End: 10-06-2024 Start: 01-20-2024 0-4 Units, Sub CUTAneous, NIGHTLY, First dose on Tue01/20/24 at 2100, Until Discontinued If continuous tube feedings/TPN/NPO, give correction dose based on result, no reduction in dose. If eating or bolus tube feeding: Corrective Bedtime Algorithm Glucose: Dose: 70-299 No Insulin 300-349 4 Units Over 349 4 Units and notify physician Start: 01-20-2024 insulin lispro (HUMALOG,ADMELOG) 100 UNIT/ML SOLN injection vial Inject 0-16 Units into the skin 3 times daily (with meals) 120-150 3 units. 151-200 6 units. 201-250 9 units. 251-300 12 units. 301-350 15 units. Greater than 351 20 units 30 mL 1 10/06/2024 Active Start: 11-02-2021 End: 01-22-2024 Start: 11-02-2021 insulin lispro , 1 Unit Dial, (HUMALOG KWIKPEN) 100 UNIT/ML SOPN Inject 10 Units into the skin 3 times daily (before meals) If blood sugar is greater than 200 take 15 units 3 pen 3 11/02/2021 Active insulin regular (HumuLIN R;NovoLIN R) 100 Units in sodium chloride 0.9 % 100 mL infusion (1 source) Start: 09-28-2024 0.1-50 Units/h r (0.1-50 mL/hr), IntraVENous, CONTINUOUS, Starting on Tue09/28/24 at 0945, Until Discontinued, Goal Blood Glucose Range: DKA: 150-200, Calculate initial bolus with the embedded Insulin Calculator? No, If potassium LESS than 3.3, replace potassium per order prior to beginning insulin infusion Check blood glucose hourly while on infusion / protocol, unless otherwise specified by the calculator. Enter blood glucose value into eMAR calculator for rate guidance and other instruction. Reference: Refer to the Insulin Calculator Algorithm When BG labetalol hydrochloride 5 mg/ml injectable solution (8 sources) beta-Adrenergic Arlene Start: 09-28-2024 Start: 09-28-2024 End: 09-28-2024 10 mg, IntraVENous, ONCE, 1 dose, On Tue09/28/24 at 0945 Start: 09-28-2024 End: 09-28-2024 1 dose, Starting on 09/16 at 0923, Until Tue09/28/24 at 0957, Simona Kirk: adrian ascencio, Simona Kirk: cabinet override Start: 01-21-2024 End: 01-21-2024 10 mg, IntraVENous, ONCE, 1 dose, On Tue01/21/24 at 2215 Start: 01-20-2024 20 mg, IntraVE Nous, EVERY 6 HOURS PRN, Starting on Tue01/20/24 at 1846, Until Discontinued, High Blood Pressure, for SBP>160, hold for HR<60 Start: 01-18-2024 End: 01-18-2024 labetalol (NORMODYNE;TRANDAT E) injection 20 mg Start: 09-23-2023 End: 09-24-2023 take 20 mg intravenously every six hours as needed Labetalol (NORMODYNE) injection 20 mg levETIRAcetam 500 mg oral tablet (6 sources) Start: 10-06-2024 End: 10-01-2025 take 2 tablets by mouth twice daily levETIRAcetam (KEPPRA) 500 MG tablet Take 2 tablets by mouth 2 times daily 120 tablet 11 10/06/2024 10/01/2025 Active Start: 10-03-2024 End: 10-06-2024 Start: 09-23-2023 End: 09-24-2023 levETIRAcetam (KEPPRA) table t 500 mg lisinopril 20 mg oral tablet (3 sources) [...] End: 09-24-2023 Lisinopril (PRINIVIL) tablet 10 mg losartan potassium 50 mg oral tablet (5 sources) Angiotensin 2 Receptor Arlene Start: 10-07-2024 take 1 tablet by mouth once daily losartan (COZAAR) 50 MG tablet Take 1 tablet by mouth daily 30 tablet 3 10/07/2024 Active Start: 10-02-2024 End: 10-04-2024 miconazole nitrate 0.02 mg/mg topical powder (1 source) Azole Antifungal Start: 10-02-2024 niCARdipine (CARDENE) 25 mg in sodium chloride 0.9 % 250 mL infusion ([id number]) (2 sources) Start: 09-28-2024 2.5-15 mg/hr ( 25-150 mL/hr), IntraVENous, CONTINUOUS, Starting on Tue09/28/24 at 1000, Until Discontinued, Titrate Infusion? Yes, Initial Infusion Rate: 5 mg/hr, Goal of Therapy is: Other, Other Goal: SBP less than 180 mmHg, Contact Provider if: Patient is receiving [...] be used to maintain goal. Use 20mm (Blue) [id number] Adapter Preparation instructions: Attach medication vial to one 20mm (Blue) [id number] adapter. Darvin fluid bag with adapter, mix, and administer per order. Start: 01-19-2024 niCARdipine (C ARDENE) 25 mg in sodium chloride 0.9 % 250 mL infusion ([id number]) polyethylene glycol 3350 170 00 mg powder for oral solution (2 sources) Osmotic Laxative Start: 09-28-2024 Start: 01-19-2024 17 g, Oral, DA ADRIAN PRN, Starting on Tue01/19/24 at 0353, Until Discontinued, Constipation First line therapy for constipation sildenafil (1 source) Phosphodiesterase 5 Inhibitor Sildenafil Citrate (VIAGRA PO) Take 1 % by mouth As directed as needed for Other. 0 Active simvastatin 20 mg oral tablet (1 source) HMG-CoA Reductase Inhibitor take 1 tablet by mouth once daily in the evening simvastatin 20 MG tablet Take 1 tablet by mouth every evening at 6 PM. 0 Active sodium phosphate 15 mmol in sodium chloride 0.9 % 250 mL IVPB (1 source) Start: 15 mmol, IntraVENous, at 83.3 mL/hr, Administer over 180 Minutes, PRN, Phosphate IV Replacement, Starting on Tue09/28/24 at 0928, Phos level Replacement Action 1.5 to 2.7 mg/dL 15 mmol IVPB over 3 hours LESS than 1.5 mg/dL CALL PHYSICIAN and 15 mmol IVPB over 3 hours Repeat Phos level 1 hour after administration. Protocol not for use in Patients with CrCl less than 30mL/min tiZANidine 2 mg oral tablet (1 source) Central alpha-2 Adrenergic Agonist take 2 tablets by mouth three times daily Tizanidine 2 MG tablet Take 2 tablets by mouth 3 times daily. 0 Active Toujeo Max SoloStar (1 source) Start: inject 60 [IU] by subcutaneous injection twice daily Mike Puga SoloStar 60 unit(s), SubCutaneous, BID, Refills(s) 0 Start Date: 02/22/24 Status: Ordered (17 sources) Start: [Order 1 Start] Name: dextrose bolus 10% 125 mL Signed Summary: 125 mL, IntraVENous, at 937.5 mL/hr, Administer over 8 Minutes, PRN, Other, Blood glucose 40 - 69 mg/dL and patient NOT ALERT or NPO, Starting on 09/29/24 at 0739, Repeat blood glucose in 15 minutes. If [...] patient NOT ALERT or NPO, Starting on 09/29/24 at 0739, Repeat blood glucose in 15 minutes. If blood glucose remains LESS THAN 70 mg/dL, repeat treatment and recheck blood glucose in 15 minutes x 2. If using glycemic management system, dose as instructed per system. If blood glucose remains LESS THAN 70 mg/dL after 2 intravenous boluses start dextrose 10% at 100 mL/hour and notify provider. [Order 2 End] Start: 09-28-2024 End: 10-01-2024 Start: 09-28-2024 End: 10-02-2024 Start: 09-28-2024 End: 10-01-2024 Start: 09-28-2024 Start: 09-28-2024 [Order 1 Start ] Name: acetaminophen (TYLENOL) tablet 650 mg Signed Summary: 650 mg, Oral, EVERY 6 HOURS PRN, Starting on Tue09/28/24 at 1443, Until Discontinued, Pain Mild (1-3), Fever, For temp greater than 100.4 F (38 C), Maximum dose of acetaminophen is 4000 mg from all sources in 24 hours. [Order 1 End] [Order 2 Start] Name: acetaminophen (TYLENOL) suppository 650 mg Signed Summary: 650 mg, Rectal, EVERY 6 HOURS PRN, Starting on Tue09/28/24 at 1443, Until Discontinued, Pain Mild (1-3), Fever, For temp greater than 100.4 F (38 C), Administer if oral route cannot be used. [Order 2 End] Start: 09-28-2024 [Order 1 Start ] Name: potassium chloride 20 mEq/50 mL IVPB (Central Line) Signed Summary: 20 mEq, IntraVENous, PRN, Starting on Tue09/28/24 at 1443, Until Discontinued, at 50 mL/hr, Per IV [...] Summary: 10 mEq, IntraVENous, PRN, Starting on Tue09/28/24 at 1443, Until Discontinued, at 100 mL/hr, Per IV [...] CrCl less than 30mL/min [Order 2 End] Start: 09-28-2024 [Order 1 Start ] Name: ondansetron (ZOFRAN-ODT) disintegrating tablet 4 mg Signed Summary: 4 mg, Oral, EVERY 8 HOURS PRN, Starting on Tue09/28/24 at 1443, Until Discontinued, Nausea, Vomiting [Order 1 End] [Order 2 Start] Name: ondansetron (ZOFRAN) injection 4 mg Signed Summary: 4 mg, IntraVENous, EVERY 6 HOURS PRN, Starting on Tue09/28/24 at 1443, Until Discontinued, Nausea, Vomiting, Administer if oral route cannot be used. [Order 2 End] Start: 01-19-2024 End: 01-20-2024 900 mg (rounded from 885 mg = 10 mg/kg 88.5 kg), IntraVENous, EVERY 8 HOURS, First dose on Tue01/19/24 at 1200, Until Discontinued Antimicrobial Indications: Other Other Abx Indication: concern for meningitis Start: 01-19-2024 End: 01-21-2024 IntraVENous, at 100 mL/hr, A dminister over 30 Minutes, DAILY, First dose on Tue01/19/24 at 1145 Start: 01-19-2024 End: 01-21-2024 40 mg, IntraVENous, DAILY, F irst dose on Tue01/19/24 at 0900 Reconstitute each 40 mg vial with 10 mL of 0.9% sodium chloride and administer each 40 mg vial over at least 2 minutes. Start: 01-19-2024 15 mmol, Intra VENous, at 83.3 mL/hr, Administer over 180 Minutes, PRN, Phosphate IV Replacement, Starting on Tue01/19/24 at 0827 Phos level Replacement Action 1.5 [...] EVERY 1 HOUR PRN (WITHDRAWAL), Starting on Tue01/19/24 at 0716, Until Discontinued, For alcohol withdrawal. For CIWA score 8 to 10. Reassess CIWA one hour after each dose of medication and as needed. [Order 1 End] [Order 2 Start] Name: LORazepam (ATIVAN) injection 1 mg Signed Summary: 1 mg, IntraVENous, EVERY 1 HOUR PRN (WITHDRAWAL), Starting on Tue01/19/24 at 0716, Until Discontinued, Withdrawal, For alcohol [...] Rectal, EVERY 6 HOURS PRN, Starting on Tue01/19/24 at 0353, Until Discontinued, Pain Mild (1-3), [...] IntraVENous, EVERY 6 HOURS PRN, Starting on Tue01/19/24 at 0353, Until Discontinued, Nausea, Vomiting Administer [...] Summary: 10 mEq, IntraVENous, PRN, Starting on Tue01/19/24 at 0353, Until Discontinued, at 100 mL/hr, [...] 30mL/min [Order 2 End] (1 source) Start: 10-05-2024 (1 source) Start: 10-06-2024 (1 source) Start: 10-06-2024 Completed/Discontinued Medications Medication Drug Class(es) Dates Sig (Normalized) Sig (Original) acetaminophen 650 mg rectal suppository (5 sources) Start: 09-28-2024 End: 09-28-2024 take 4000 mg rectal route every twenty-four hours 650 mg, Rectal, ONCE, 1 dose, On Tue09/28/24 at 0945, Maximum dose of acetaminophen is 4000 mg from all sources in 24 hours. Start: 09-23-2023 End: 09-24-2023 take 1 tablet by mouth every four hours as needed Acetaminophen (TYLENOL) tablet 650 mg Start: 04-19-2022 End: 04-19-2022 acetaminophen (TYLENOL) tabl et 650 mg Start: 04-04-2022 End: 04-04-2022 acetaminophen (TYLENOL) tabl et 1,000 mg take 1 tablet by divine every six hours as needed acetaminophen 500 [...] (total volume) IVPB 20 ml albumin human, jail 250 mg/ml injection (1 source) Human Serum Albumin Start: 09-22-2023 End: 09-22-2023 albumin human 25 % injection 25 g albuterol 0.833 mg/ml / ipratropium bromide 0.167 mg/ml inhalation solution (1 source) Anticholinergic , beta2-Adrenergi c Agonist Start: 09-23-2023 End: 09-24-2023 take 3 mL by inhalation every four hours as needed Ipratropium-albut glendy (DUONEB) 0.5-2.5 (3) MG/3ML nebulizer solution 3 mL 50 ml calcium gluconate 20 mg/ml injection (1 source) Start: 01-19-2024 End: 01-19-2024 1,000 mg, IntraVENous, at 50 mL/hr, Administer over 60 Minutes, ONCE, On Tue01/19/24 at 0900, For 1 dose ceFEPIme (MAXIPIME) 2,000 mg in sodium chloride 0.9 % 100 mL IVPB (mini-bag) (1 source) Start: 09-28-2024 End: 09-28-2024 2,000 mg, IntraVENous, at 200 mL/hr, Administer over 30 Minutes, ONCE, On Tue09/28/24 at 1030, For 1 dose cefTRIAXone (ROCEPHIN) 1 g [...] Mouth/Throat, 2 TIMES DAILY, First dose on Tue01/19/24 at 1330, Until Discontinued For mechanical ventilation [...] mg 20 ml etomidate 2 mg/ml injection (4 sources) General Anesthetic Start: 09-28-2024 End: 09-28-2024 20 mg, IntraVENous, ONCE, 1 dose, On Tue09/28/24 at 1030 Start: 01-19-2024 End: 01-19-2024 20 mg, IntraVENous, ONCE, 1 dose, On Roz 01/19/24 at 1345 Start: 01-19-2024 End: 01-19-2024 1 dose, Starting on Roz at 1247, Until Tue01/20/24 at 0059 Shatzer, Rashid: cabinet override Rashid Booth: cabinet override Start: 09-21-2023 End: 09-21-2023 Etomidate (AMIDATE) injectio n 2 ml fentaNYL 0.05 mg/ml inj ection (1 source) Opioid Agonist Start: 09-28-2024 End: 09-28-2024 Start: 09-28-2024 End: 09-28-2024 250 ml glucose 50 mg/ml / so dium chloride 4.5 mg/ml injection (4 sources) Start: 09-28-2024 End: 10-03-2024 Start: 09-28-2024 IntraVENous, a t 150 mL/hr, CONTINUOUS PRN, blood glucose less than 250 mg/dL, Starting on Tue09/28/24 at 0934, When blood glucose equals 250 mg/dL or below, DISCONTINUE saline IV Fluid using Per Protocol order mode and start using this dextrose containing IV fluid order. DO NOT restart saline infusion if subsequent blood glucose returns above 250 mg/dL. Start: 01-19-2024 take 1 mL intravenously every [...] End: 09-24-2023 Dextrose 5% and sodium chlor janett 0.9% IV solution 1 ml haloperidol 5 mg/ml prefilled syringe (1 source) Typical Antipsychotic Start: 09-22-2023 End: 09-22-2023 Haloperidol lactate (HALDOL) injection 5 mg hydroCHLOROthiazide 25 mg oral tablet (4 [...] R) injection iopamidol (ISOVUE-370) 76 % injection 150 mL (1 source) Start: 09-28-2024 End: 09-28-2024 take 1 dose intravenously once 150 mL, IntraVENous, IMG ONCE PRN, 1 dose, Starting on Tue09/28/24 at 0909, Until Tue09/28/24 at 0912, Other iopamidol (ISOVUE-370) 76 % injection 75 mL (1 source) Start: 01-18-2024 End: 01-18-2024 iopamidol (ISOVUE-370) 76 % injection 75 mL levoFLOXacin 250 mg oral tablet (2 sources) Quinolone Antimicrobial Start: 10-03-2024 End: 10-04-2024 Start: 10-02-2024 End: 10-03-2024 300 ml linezolid 2 mg/ml injection (1 source) Oxazolidinone Antibacterial Start: 09-28-2024 End: 09-29-2024 1 ml LORazepam 2 mg/ml injection (3 sources) Benzodiazepine Start: 09-28-2024 End: 09-28-2024 inject 1 dose intravenously once 2 mg, IntraVENous, ONCE, 1 dose, On Tue09/28/24 at 1145, Immediately prior to intravenous use, lorazepam Injection must be diluted with at least an equal volume of compatible solution (NS or D5W). Start: 09-28-2024 End: 09-28-2024 1 dose, Starting on 09/16 at 1140, Until Tue09/28/24 at 1143, rBittney Cortez: cabinet override, Brittney Cortez: cabinet override Start: 01-19-2024 End: 01-19-2024 LORazepam (ATIVAN) injection 1 mg 50 ml magnesium sulfate 40 m g/ml injection (5 sources) Start: 09-28-2024 End: 09-29-2024 Start: 09-28-2024 2,000 mg, Intr aVENous, at 25 mL/hr, Administer over 2 Hours, PRN, Other, Per IV Magnesium Replacement Protocol, Starting on Tue09/28/24 at 0928, Mg Lab Replacement Action 1.4-1.6 2 gram IVPB x 1 doses (2 gram Total) 1.0-1.3 2 gram IVPB x 2 doses (4 gram Total) less than 1.0 CALL PHYSICIAN and 2 gram IVPB x 2 doses (4 gram Total) Infuse at 1 gram/hr Repeat Mag level 1 hour after final administration. Protocol not for use in Patients with CrCl less than 30mL/min Start: 01-19-2024 take 2000 mg intrave nously every hour as needed 2,000 mg, IntraVENous, at 25 mL/hr, Administer over 2 Hours, PRN, Other, Per IV Magnesium Replacement Protocol, Starting on Tue01/19/24 at 0353 Mg Lab Replacement Action 1.4-1.6 &n bsp; 2 gram IVPB x 1 doses &nbs p; & nbsp; &nbs p; (2 gram Total) 1.0-1.3 2 gram IVPB x 2 doses &nbs p; & nbsp; &nbs p; (4 gram Total) less than 1.0 &n bsp; CALL PHYSICIAN and &nb sp; 2 gram IVPB x 2 doses (4 gram Total) Infuse at 1 gram/hr Repeat Mag level 1 hour after final administration Protocol not for use in Patients with CrCl less than 30mL/min melatonin 3 mg oral tablet (2 sources) [...] Until Roz 01/19/24 at 1306 SAMANTA CHRISTINA: loreninet override SAMANTA CHRISTINA: adrian override Start: 09-21-2023 End: 09-21-2023 Midazolam HCl [...] (CARDENE) 20 mg/200 mL premix IV infusion NIFEdipine 30 mg osmotic 24 hr extended release oral tablet (6 sources) Dihydropyridine Calcium Channel Arlene Start: 01-21-2024 End: 10-06-2024 2 ml ondansetron 2 mg/ml injection (2 [...] 09-23-2023 Pantoprazole (PROTONIX) inje ction 40 mg 100 ml potassium chloride 0. 1 meq/ml injection (3 sources) Start: 09-28-2024 End: 10-03-2024 Start: 09-28-2024 10 mEq, IntraV ENous, PRN, Starting on Tue09/28/24 at 0928, Until Discontinued, at 100 mL/hr, Potassium IV [...] either through peripheral IV or central IV. Start: 01-19-2024 10 mEq, IntraV ENous, PRN, Starting on Roz 01/19/24 at 0827, [...] IntraMUSCular, EVERY 6 HOURS PRN, Starting on Tue01/19/24 at 0511, Until Discontinued, Nausea Only to be given as IM injection. 100 ml propofol 10 mg/ml injection (6 sources) General Anesthetic Start: 09-28-2024 End: 10-01-2024 Start: 01-19-2024 End: 01-20-2024 5-50 mcg/kg/min 88.5 kg (2.6 55-26.55 mL/hr, rounded to 2.7-26.6 mL/hr), IntraVENous, CONTINUOUS, [...] End: 09-24-2023 QUEtiapine (SEROquel) tablet 100 mg regadenoson (LEXISCAN) injection 0.4 mg (1 source) Start: 10-03-2024 End: 10-03-2024 take 0.4 mg intravenously once as needed 0.4 mg, IntraVENous, IMG ONCE PRN, 1 dose, Starting on Tue10/03/24 at 0735, Until Tue10/03/24 at 1019, Other, Only to be given in Nuclear Med during CARDIAC STRESS TEST ONLY., Pre-procedure(S tress) rocuronium bromide 10 mg/ml injectable solution (1 source) Nondepolarizing Neuromuscular Arlene Start: 09-28-2024 End: 09-28-2024 88 mg (1 mg/kg 88 kg), IntraVENous, ONCE, 1 dose, On Tue09/28/24 at 1030 1000 ml sodium chloride 9 mg/ml injection (20 sources) Start: 09-28-2024 End: 10-03-2024 Start: 09-28-2024 End: 10-01-2024 Start: 09-28-2024 End: 10-01-2024 Start: 09-28-2024 End: 09-28-2024 1,000 mL (11.4 mL/kg), IntraVENous, at 2,000 mL/hr, Administer over 30 Minutes, ONCE, On Tue09/28/24 at 1100, For 1 dose Start: 01-19-2024 10 mL, IntraVE Nous, PRN, [...] frequent line interruptions/ long duration, Starting on Tue01/19/24 at 0353 For piggyback infusion, administer at [...] 100 mg, IntraVENous, ONCE, 1 dose, On Tue01/19/24 at 1345 Start: 01-19-2024 End: 01-19-2024 1 dose, Starting on Tue at 1247, Until Tue01/20/24 at 0059 Rashid Booth: cabinet override Rashid Booth: loreninet override thiamine 100 mg oral tablet (1 source) Start: 01-21-2024 take 100 mg by mouth once daily 100 mg, Oral, DAILY, First dose on Tue01/21/24 at 1215, Until Discontinued 400 ml vancomycin 5 mg/ml injection (1 source) Glycopeptide Antibacterial Start: 09-28-2024 End: 09-28-2024 2,000 mg (22.7 mg/kg), IntraVENous, at 200 mL/hr, Administer over 120 Minutes, ONCE, On Tue09/28/24 at 1030, For 1 dose vecuronium bromide 1 mg/ml injectable solution (2 sources) Nondepolarizing Neuromuscular Arlene Start: 09-21-2023 End: 09-21-2023 Vecuronium (NORCURON) injection 8.5 mg Start: 09-21-2023 End: 09-21-2023 Vecuronium (NORCURON) inject ion (1 source) Start: 01-19-2024 16 g (4 tablet ), Oral, PRN, Starting on Roz 01/19/24 at 0410, [...] IMG ONCE PRN, 1 dose, Starting on Roz 01/19/24 at 1614, Until Roz 01/19/24 at 1617, Other (2 sources) Start: 10-03-2024 End: 10-03-2024 Start: 10-03-2024 End: 10-03-2024 Problems Active Problems Problem Classification Problem Date Documented Date Episodic/Chronic Acute and unspecified renal failure (6 sources) Acute renal failure syndrome; Translations: [Acute kidney failure, unspecified] Onset: 09-28-2024 09-28-2024 Episodic Acute cerebrovascular disease (7 sources) Cerebrovascular accident; Translations: [Cerebral infarction, unspecified] Onset: 10-05-2024 02-22-2024 Chronic Acute myocardial infarction (6 sources) Myocardial infarction; Translations: [Non-ST elevation (NSTEMI) myocardial infarction] Onset: 01-19-2024 01-19-2024 Chronic Bacterial infection; unspecified site (9 sources) Bacteremia due to Staphylococcus aureus; Translations: [Bacteremia] Onset: 10-25-2022 11-02-2021 Episodic Cardiac dysrhythmias (2 sources) Paroxysmal atrial fibrillation; Translations: [Paroxysmal atrial fibrillation] Onset: 09-28-2024 10-05-2024 Chronic Cardiac dysrhythmias (8 sources) Sinus tachycardia; Translations: [Tachycardia, unspecified] 10-30-2021 Episodic Chronic kidney disease (6 sources) Chronic kidney disease stage 3; Translations: [Stage 3 chronic kidney disease] Onset: 10-04-2024 10-04-2024 Chronic Chronic kidney disease (2 sources) Chronic kidney disease; Translations: [Chronic kidney disease, stage 3a] Onset: 10-04-2024 Chronic ulcer of skin (16 sources) Non-pressure chronic ulcer of left heel and midfoot limited to breakdown of skin; Translations: [Non-pressure chronic ulcer of other part of right lower leg limited to breakdown of skin] Onset: 11-12-2022 Chronic Deficiency and other anemia (1 source) Iron deficiency anemia 02-22-2024 Episodic Diabetes mellitus with complications (20 sources) Type 2 diabetes mellitus; Translations: [Type 2 diabetes mellitus with ketoacidosis without coma] Onset: 10-27-2021 11-02-2021 Chronic Diabetes mellitus without complication (6 sources) Type 2 diabetes mellitus without complications; Translations: [Diabetes mellitus] Onset: 03-18-2022 Chronic Disorders of lipid metabolism (4 sources) Pure hypercholesterolemia, unspecified; Translations: [Pure hyperglyceridemia] Onset: 01-03-2023 02-22-2024 Chronic Epilepsy; convulsions (4 sources) Seizure; Translations: [Unspecified convulsions] Onset: 10-04-2024 10-04-2024 Episodic Essential hypertension (7 sources) Essential hypertension; Translations: [Essential (primary) hypertension] Onset: 01-03-2023 Chronic Headache; including migraine (2 sources) Acute headache; Translations: [Acute nonintractable headache, unspecified headache type] Episodic Hypertension with complications and secondary hypertension (20 sources) Hypertensive emergency; Translations: [Hypertensive emergency] Onset: 09-21-2023 09-21-2023 Chronic Nutritional deficiencies (8 sources) Undernutrition; Translations: [Mild protein-calorie malnutrition] Onset: 10-28-2021 10-28-2021 Chronic Other aftercare (1 source) USP (current) use of insulin; Translations: [ASSISTED CURRENT USE OF INSULIN] Onset: 12-30-2022 Episodic Other aftercare (1 source) Other director long term care (current) drug therapy; Translations: [OTH ASSISTED CURRENT DRUG THERAPY] Onset: 12-30-2022 Episodic Other circulatory disease (1 source) Elevated blood pressure; Translations: [Elevated blood-pressure reading, without diagnosis of hypertension] Episodic Other diseases of kidney and ureters (2 sources) Renal impairment; Translations: [Disorder of kidney and ureter, unspecified] Onset: 09-22-2023 09-22-2023 Episodic Other nervous system disorders (6 sources) Disorder of brain; Translations: [Encephalopathy, unspecified] Onset: 01-19-2024 01-19-2024 Chronic Other nervous system disorders (4 sources) Metabolic encephalopathy; Translations: [Metabolic encephalopathy] Onset: 01-19-2024 10-05-2024 Chronic Other nervous system disorders (3 sources) Dysarthria and anarthria; Translations: [DYSARTHRIA AND ANARTHRIA] Onset: 12-27-2022 Episodic Other screening for suspected conditions (not mental disorders or infectious disease) (12 sources) Magnetic resonance imaging of brain abnormal; Translations: [Other abnormal findings on diagnostic imaging of central nervous system] Onset: 10-01-2024 10-01-2024 Episodic Paralysis (4 sources) 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; Translations: [MONOPLEG UP LIMB RT NONDOM SIDE] Onset: 04-28-2022 Chronic Peripheral and visceral atherosclerosis (1 source) Peripheral vascular disease, unspecified; Translations: [PERIPHERAL VASCULAR DISEASE UNS] Onset: 01-03-2023 Chronic Pneumonia (except that caused by tuberculosis or sexually transmitted disease) (2 sources) Left lower zone pneumonia; Translations: [Pneumonia, unspecified organism] Onset: 09-28-2024 09-28-2024 Episodic Residual codes; unclassified (2 sources) Delirium; Translations: [Disorientation, unspecified] Onset: 09-22-2023 09-22-2023 Episodic Residual codes; unclassified (1 source) Pain, unspecified; Translations: [Pain, unspecified] Onset: 10-16-2023 Episodic Residual codes; unclassified (1 source) Noncompliance with medication regimen; Translations: [Non compliance w medication regimen] 09-28-2024 Episodic Respiratory failure; insufficiency; arrest (adult) (10 sources) Acute respiratory failure; Translations: [Acute respiratory [...] COUGH, UNSPECIFIED; Translations: [COUGH, UNSPECIFIED] Onset: 06-02-2022 Unclassified (1 source) Patient's other noncompliance with medication regimen for other reason; Translations: [Patient's other noncompliance with medication regimen for other reason] Onset: 09-28-2024 Viral infection (1 source) COVID-19; Translations: [COVID-19] Onset: 06-02-2022 Past or Other Problems Problem Classification Problem Date Documented Da te Episodic/Chronic Administrative/social admission (1 source) Dietary counseling and surveillance; Translations: [DIETARY COUNSELING AND SURVEILLANCE] Onset: 03-24-2022 Episodic Fever of unknown origin (6 sources) Fever; Translations: [Fever, unspecified] Onset: 01-19-2024 01-19-2024 Episodic Fluid and electrolyte disorders (6 sources) Lactic acidosis; Translations: [Lactic acidosis] Onset: 01-19-2024 01-19-2024 Episodic Open wounds of extremities (1 source) [...] Translations: [DIARRHEA UNSPECIFIED] Onset: 09-24-2022 Episodic Other lower respiratory disease (7 sources) Apnea; Translations: [Apnea, not elsewhere classified] Onset: 01-22-2024 01-19-2024 Episodic Other lower respiratory disease (1 source) Apnea, not elsewhere classified; Translations: [Apnea, not elsewhere classified] Onset: 01-22-2024 Episodic Other skin disorders (1 source) Other skin changes; Translations: [OTHER SKIN CHANGES] Onset: 10-25-2022 Episodic Residual codes; unclassified (1 source) Family history of diabetes mellitus; Translations: [FAMILY HISTORY OF DIABETES MELLITUS] Onset: 10-25-2022 Episodic Residual codes; unclassified (8 sources) Altered mental status; Translations: [Altered mental status, unspecified] Onset: 01-19-2024 09-21-2023 Episodic Residual codes; unclassified (3 sources) Altered mental status, unspecified; Translations: [Altered mental status, unspecified] Onset: 09-21-2023 Episodic Unclassified (1 source) CONTACT W/AND (SUSP) EXPOS COVID-19; Translations: [CONTACT W/AND (SUSP) EXPOS COVID-19] Onset: 06-01-2022 Results Test Name Value Interpretation Reference Range Facility Miscellaneouson 10-18-2024 Send Out Report PERFORMED AT [facility] Comment on above: Result Comment: (NOT E)Enceph, Autoimm/Paraneo, CSFReceived: 06 Oct 2024 13:04 Reported: 16 Oct 2024 17:06 ==Encephalopathy, Interpretation, CSF MCRNo informative autoantibodies were detected in thisevaluation. However, a negative result does not excludeautoimmune encephalopathy, idiopathic or paraneoplastic.Sensitivity and specificity of antibody testing areenhanced by testing both serum and CSF............................................................ .IFA Notes MCRNone........................................................ .....AMPA-R Ab CBA, CSF MCRNegative Reference Value: NegativeSee note [1] below.......................................................... ...Amphiphysin Ab, CSF MCRNegative Reference Value: NegativeSee note [1] below.......................................................... ...Anti-Glial Nuclear Ab, Type 1 MCRAGNA-1, CSF MCRNegative Reference Value: NegativeSee note [1] below.......................................................... ...Anti-Neuronal Nuclear Ab, Type 1 MCRANNA-1, CSF MCRNegative Reference Value: NegativeSee note [1] below.......................................................... ...Anti-Neuronal Nuclear Ab, Type 2 MCRANNA-2, CSF MCRNegative Reference Value: NegativeSee note [1] below.......................................................... ...Anti-Neuronal Nuclear Ab, Type 3 MCRANNA-3, CSF MCRNegative Reference Value: NegativeSee note [1] below.......................................................... ...CASPR2-IgG CBA, CSF MCRNegative Reference Value: NegativeSee note [1] below.......................................................... ...CRMP-5-IgG, CSF MCRNegative Reference Value: NegativeSee note [1] below.......................................................... ...DPPX Ab CBA, CSF MCRNegative Reference Value: NegativeSee note [1] below.......................................................... ...MARQUISE-B-R Ab CBA, CSF MCRNegative Reference Value: NegativeSee note [1] below.......................................................... ...GAD65 Ab Assay, CSF MCR0.00 nmol/L Reference Value: <= 0.02See note [1] below.......................................................... ...GFAP IFA, CSF MCRNegative Reference Value: NegativeSee note [1] below.......................................................... ...mGluR1 Ab IFA, CSF MCRNegative Reference Value: NegativeSee note [1] below.......................................................... ...IgLON5 CBA, CSF MCRNegative Reference Value: NegativeSee note [1] below.......................................................... ...LGI1-IgG CBA, CSF MCRNegative Reference Value: NegativeSee note [1] below.......................................................... ...Neurochondrin IFA, CSF MCRNegative Reference Value: NegativeSee note [1] below.......................................................... ...NIF IFA, CSF MCRNegative Reference Value: NegativeSee note [1] below.......................................................... ...NMDA-R Ab CBA, CSF MCRNegative Reference Value: NegativeSee note [1] below.......................................................... ...Purkinje Cell Cytoplasmc Ab Type Tr MCRPCA-Tr, CSF MCRNegative Reference Value: NegativeSee note [1] below.......................................................... ...Purkinje Cell Cytoplasmic Ab Type 1 MCRPCA-1, CSF MCRNegative Reference Value: NegativeSee note [1] below.......................................................... ...Purkinje Cell Cytoplasmic Ab Type 2 MCRPCA-2, CSF MCRNegative Reference Value: NegativeSee note [1] below.......................................................... ...PDE10A Ab IFA, CSF MCRNegative Reference Value: NegativeSee note [1] below.......................................................... ...Septin-7 IFA, CSF MCRNegative Reference Value: NegativeSee note [1] below.......................................................... ...TRIM46 Ab IFA, CSF MCRNegative Reference Value: NegativeSee note [1] below.Laboratory Notes:1. This test was developed and its performancecharacteristics determined by [facility] in a mannerconsistent with CLIA requirements. This test has not beencleared or approved by the U.S. Food and DrugAdministration.+ +: PERFORMING SITE LEGEND :+ +: MCR : [facility] :: : [address] [place] [address] :+ +Re ceived and reported dates and times are reported in USCentral Time. Performed By: #### C MIS1 ####[employer] [place] [address] [facility] Director: Ramiro Mark MD Basic Metabolic Panelon 12-2 Anion gap [Moles/Vol] 8 mmol/L Low 9 - 16 mmol/L [facility] Calcium [Mass/Vol] 8.2 mg/dL Low 8.6 - 10. 4 mg/dL [facility] Chloride [Moles/Vol] 106 mmol/L 98 - 10 7 mmol/L [facility] CO2 [Moles/Vol] 23 mmol/L 20 - 31 mmol/L [facility] Creatinine [Mass/Vol] 2.0 mg/dL High 0.70 - 1.20 mg/dL [facility] Est, [place] Filt Rate 41 Low - PINF [facility] S sifonr Comment on above: These results are not [...] that affects renal tubular secretion. Glucose [Mass/Vol] 166 mg/dL High 74 - 99 mg/dL [facility] Interpretation and review of laboratory results Abnormal [facility] Potassium [Moles/Vol] 5.8 mmol/L High 3.7 - 5.3 mmol/L [facility] Sodium [Moles/Vol] 137 mmol/L 136 - 145 mmol/L [facility] Urea nitrogen [Mass/Vol] 46 mg/dL High 6 - 20 mg/dL [facility] Urea nitrogen/Creatinine [Mass ratio] 23 mg/mg High 9 - 20 [facility] Basic Metabolic Profon 10-14 Anion gap [Moles/Vol] 8 mmol/L Low 9-16 [facility] Comment on above: Performed By: #### B MP #### [facility] [address] [place], [place] [id number] B[employer] Machine Tender Starch Spraying: Ramiro Santillan MD BUN/CRE Ratio 23 High 9-20 [facility] Comment on above: Performed By: #### B MP #### [facility] [address] [place], [place] [id number] B[employer] Machine Tender Starch Spraying: Ramiro Santillan MD Calcium [Mass/Vol] 8.2 mg/dL Low 8.6-10.4 [facility] Comment on above: Performed By: #### B MP #### [facility] [address] [place], [place] [id number] B[employer] Machine Tender Starch Spraying: Ramiro Santillan MD Chloride [Moles/Vol] 106 mmol/L Normal 98-107 [facility] Comment on above: Performed By: #### B MP #### [facility] [address] [place], [place] [id number] B[employer] Machine Tender Starch Spraying: Ramiro Santillan MD CO2 [Moles/Vol] 23 mmol/L Normal 20-31 [facility] Comment on above: Performed By: #### B MP #### [facility] [address] [place], [place] [phone] Blow Machine Tender Starch Spraying: Ramiro Santillan MD Creatinine [Mass/Vol] 2.0 mg/dL High 0.70-1.20 [facility] Comment on above: Performed By: #### B MP #### [facility] [address] [place], [place] [phone] B[employer] Machine Tender Starch Spraying: Ramiro Santillan MD GFR/1.73 sq M.predicted among non-blacks MDRD (S/P/Bld) [Vol rate/Area] 41 mL/min/{1.73_m2} Low >60 [facility] Comment on above: Result Comment: These [...] renal tubular secretion. Performed By: #### B MP #### [facility] [address] [place] [address] [place] [address] [employer] Machine Tender Starch Spraying: Ramiro Santillan MD Glucose [Mass/Vol] 166 mg/dL High 74-99 [facility] Comment on above: Performed By: #### B MP #### [facility] [address] [place] [address] [address] [place], [place] [phone] B[employer] Machine Tender Starch Spraying: Ramiro Santillan MD Potassium [Moles/Vol] 5.8 mmol/L High 3.7-5.3 [facility] Comment on above: Performed By: #### B MP #### [facility] [address] [place] [address] [address] [place], [place] [phone] B[employer] Machine Tender Starch Spraying: Ramiro Santillan MD Sodium [Moles/Vol] 137 mmol/L Normal 136-145 [facility] Comment on above: Performed By: #### B MP #### [facility] [address] [place], [place] [phone] Blow Machine Tender Starch Spraying: Ramiro Santillan MD Urea nitrogen [Mass/Vol] 46 mg/dL High 6-20 [facility] Comment on above: Performed By: #### B MP #### [facility] [address] [place] [address] Blow Machine Tender Starch Spraying: Ramiro Santillan MD Hemoglobin A1Con 10-08-[address] Gluc >427 [facility] Comment on above: Result Comment: SIMONA ECTED ON 10/08 AT 1012: PREVIOUSLY REPORTED Sent to reference laboratory. Separate report to follow. The ADA and AACC recommend providing the estimated average glucose result to permit better patient understanding of their HBA1c result. Performed By: #### L ACTIC #### [facility] [address] [place] [address] Blow Machine Tender Starch Spraying: Ramiro Santillan MD HbA1c (Bld) [Mass fraction] % High 4.0-6.0 [facility] Comment on above: Result Comment: SIMONA ECTED ON 10/08 AT 1012: PREVIOUSLY REPORTED Sent to reference laboratory. Separate report to follow. Performed By: #### L ACTIC #### [facility] [address] [place] [address] Blow Machine Tender Starch Spraying: Ramiro Santillan MD Cult,CSFon 10-07-2024 Cult,CSF [facility] Comment on above: Performed By: #### C FC ####[facility] [address] [place], [place] [phone] Director: Ramiro Mark MD Basic Metab w/rfx MGon 10-06 Anion gap [Moles/Vol] 7 mmol/L Low 9-16 [facility] Comment on above: Performed By: #### B CAMILO GONCALVES CDP ####[facility] [address] [place], [place] [phone] Director: Ramiro Mark MD Calcium [Mass/Vol] 8.3 mg/dL Low 8.6-10.4 [facility] Comment on above: Performed By: #### B CAMILO GONCALVES CDP ####[facility] [address] [place], [place] [phone] Director: Ramiro Mark MD Chloride [Moles/Vol] 102 mmol/L Normal 98-107 [facility] Comment on above: Performed By: #### B CAMILO GONCALVES CDP ####[facility] [address] [place], [place] [phone] Director: Ramiro Mark MD CO2 [Moles/Vol] 23 mmol/L Normal 20-31 [facility] Comment on above: Performed By: #### B CAMILO GONCALVES CDP ####[facility] [address] [place], [place] [phone] Director: Ramiro Mark MD Creatinine [Mass/Vol] 2.1 mg/dL High 0.7-1.2 [facility] Comment on above: Performed By: #### B CAMILO GONCALVES CDP ####[facility] [address] [place] [address] [phone] Director: Ramiro Mark MD GFR/1.73 sq M.predicted among non-blacks MDRD (S/P/Bld) [Vol rate/Area] 38 mL/min/{1.73_m2} Low >60 [facility] Comment on above: Result Comment: Thes e results are not intended for use in patients <18 years of age.eGFR results are calculated without a race factor using the 2020 CKD-EPI equation.Careful clinical correlation is recommended, particularly when comparing to results calculated using previous equations.The CKD-EPI equation is less accurate in patients with extremes of muscle mass, extra-renal metabolism of creatine, excessive creatine ingestion, or following therapy that affects renal tubular secretion. Performed By: #### B CAMILO GONCALVES CDP ####[facility] [address] [place], [place] [phone] Director: Ramiro Mark MD Glucose [Mass/Vol] 250 mg/dL High 74-99 [facility] Comment on above: Performed By: #### B CAMILO GONCALVES CDP ####[facility] [address] [place], [place] [phone] Director: Ramiro Mark MD Potassium [Moles/Vol] 4.6 mmol/L Normal 3.7-5.3 [facility] Comment on above: Result Comment: Spec imen hemolysis has exceeded the interference as defined by Jaime. Value may be falsely increased. Suggest recollection if clinically indicated. Performed By: #### B CAMILO GONCALVES CDP ####[employer] [address] [place], [place] [id number] Lab Director: Ramiro Mark MD Sodium [Moles/Vol] 132 mmol/L Low 136-145 [facility] Comment on above: Performed By: #### B CAMILO GONCALVES CDP ####[employer] [address] [place], [place] [id number] Lab Director: Ramiro Mark MD Urea nitrogen [Mass/Vol] 47 mg/dL High 6-20 [facility] Comment on above: Performed By: #### B CAMILO GONCALVES CDP ####[employer] [address] [place] [address] Lab Director: Ramiro Mark MD Basic Metabolic Panel w/ Ref jose to MGon 10-06-2024 Anion gap [Moles/Vol] 7 mmol/L Low 9 - 16 mmol/L [facility] Calcium [Mass/Vol] 8.3 mg/dL Low 8.6 - 10. 4 mg/dL [facility] Chloride [Moles/Vol] 102 mmol/L 98 - 10 7 mmol/L [facility] CO2 [Moles/Vol] 23 mmol/L 20 - 31 mmol/L [facility] Creatinine [Mass/Vol] 2.1 mg/dL High 0.7 - 1.2 mg/dL [facility] Est, Glom Filt Rate 38 Low - PINF [facility] Glucose [Mass/Vol] 250 mg/dL High 74 - 99 mg/dL [facility] Interpretation and review of laboratory results Abnormal [facility] Potassium [Moles/Vol] 4.6 mmol/L 3.7 - 5.3 mmol/L [facility] Sodium [Moles/Vol] 132 mmol/L Low 136 - 145 mmol/L [facility] Urea nitrogen [Mass/Vol] 47 mg/dL High 6 - 20 mg/dL [facility] CBC with Auto Differentialon 10-06-2024 Basophils (Bld) [#/Vol] 0.06 10*3/uL [facility] Basophils/100 WBC (Bld) 1 % 0 - 2 % [facility] Eosinophils (Bld) [#/Vol] 0.32 10*3/uL [facility] Eosinophils/100 WBC (Bld) 5 % High 1 - 4 % [facility] Erythrocyte distribution width (RBC) [Ratio] 13.0 % 11.8 - 14.4 % [facility] Hematocrit (Bld) [Volume fraction] 26.5 % Low 40.7 - 50.3 % [facility] Hemoglobin (Bld) [Mass/Vol] 8.8 g/dL Low 13.0 - 17.0 g/dL [facility] Immature granulocytes (Bld) [#/Vol] 0.04 10*3/uL [facility] Immature granulocytes/100 WBC (Bld) 1 % High 0 [facility] Interpretation and review of laboratory results Abnormal [facility] Lymphocytes/100 WBC (Bld) 19 % Low 24 - 43 % [facility] Lymphocytes/100 WBC (Bld) 1.39 % [facility] MCH (RBC) [Entitic mass] 28.5 pg 25.2 - 33.5 pg [facility] MCHC (RBC) [Mass/Vol] 33.2 g/dL 28.4 - 34.8 g/dL [facility] MCV (RBC) [Entitic vol] 85.8 fL 82.6 - 102.9 fL [facility] Monocytes/100 WBC (Bld) 9 % 3 - 12 % [facility] Monocytes/100 WBC (Bld) 0.61 % [facility] Neutrophils/100 WBC (Bld) 65 % 36 - 65 % [facility] Nucleated RBC/100 WBC (Bld) [Ratio] 0.0 % 0.0 per 100 WBC [facility] Platelet mean volume (Bld) [Entitic vol] 10.1 fL 8.1 - 13.5 fL [facility] Platelets (Bld) [#/Vol] 210 10*3/uL [facility] RBC (Bld) [#/Vol] 3.09 10*6/uL Low 4.21 - 5.7 7 m/uL [facility] Segmented neutrophils/100 WBC (Bld) 4.76 % [facility] WBC other (Bld) [#/Vol] 7.2 [facility] CBC with Diffon 10-06-2024 Abs. Basophil 0.06 k/uL Normal 0.00-0.20 [facility] Comment on above: Performed By: #### B CAMILO GONCALVES, CDP ####[facility] [address] [place] [address] Lab Director: Ramiro Mark MD Abs.Imm.Granulocyte 0.04 k/uL Normal 0.00-0.30 [facility] Comment on above: Performed By: #### B CAMILO GONCALVES, CDP ####[facility] [address] [place] [address] Lab Director: Ramiro Mark MD Abs.Neutrophil (Seg) 4.76 k/uL Normal 1.50-8.10 [facility] Comment on above: Performed By: #### B CAMILO GONCALVES, CDP ####[facility] [address]coebbds2721 [place] [address] Lab Director: Ramiro Mark MD Basophils/100 WBC (Bld) 1 % Normal 0-2 [facility] Comment on above: Performed By: #### B CAMILO GONCALVES, CDP ####[facility] [address]peeokpngfd4129 [place] [address] Lab Director: Ramiro Mark MD Eosinophils (Bld) [#/Vol] 0.32 10*3/uL Normal 0.00-0.44 [facility] Comment on above: Performed By: #### B CAMILO GONCALVES, CDP ####[facility] [address] [place], [place] [phone] Director: Ramiro Mark MD Eosinophils/100 WBC (Bld) 5 % High 1-4 [facility] Comment on above: Performed By: #### B CAMILO GONCALVES, CDP ####[facility] [address]tnhjeajyyxh39[address] [place], [place] [address])[phone] Director: Ramiro Mark MD Erythrocyte distribution width (RBC) [Ratio] 13.0 % Normal 11.8-14.4 [facility] Comment on above: Performed By: #### B CAMILO GONCALVES, CDP ####[facility] Vbulmjslrhkd43[address] [place], [place] [address])[phone] Director: Ramiro Mark MD Hematocrit (Bld) [Volume fraction] 26.5 % Low 40.7-50.3 [facility] Comment on above: Performed By: #### B CAMILO GONCALVES, CDP ####[facility] [address] [place] [address])[phone] Director: Ramiro Mark MD Hemoglobin (Bld) [Mass/Vol] 8.8 g/dL Low 13.0-17.0 [facility] Comment on above: Performed By: #### B CAMILO GONCALVES, CDP ####[facility] [address]tqchxucjknc[address] [place], [place] [phone] Director: Ramiro Mark MD Immature granulocytes/100 WBC (Bld) 1 % High 0 [facility] Comment on above: Performed By: #### B CAMILO GONCALVES, CDP ####[facility] Fhxcxohinfoc6716 [place], [place] [phone])[phone] Director: Ramiro Mark MD Lymphocytes (Bld) [#/Vol] 1.39 10*3/uL Normal 1.10-3.70 [facility] Comment on above: Performed By: #### B CAMILO GONCALVES, CDP ####[facility] [address] [place] [address] [phone])[phone] Director: Ramiro Mark MD Lymphocytes/100 WBC (Bld) 19 % Low 24-43 [facility] Comment on above: Performed By: #### B CAMILO GONCALVES, CDP ####[facility] [address] [place] [address])[phone] Director: Ramiro Mark MD MCH (RBC) [Entitic mass] 28.5 pg Normal 25.2-33.5 [facility] Comment on above: Performed By: #### B CAMILO GONCALVES, CDP ####[facility] [address] [place] [address])[phone] Director: Ramiro Mark MD MCHC (RBC) [Mass/Vol] 33.2 g/dL Normal 28.4-34.8 [facility] Comment on above: Performed By: #### B CAMILO GONCALVES, CDP ####[facility] [address] [place] [address] [id number])[phone] Director: Ramiro Mark MD MCV (RBC) [Entitic vol] 85.8 fL Normal 82.6-102.9 [facility] Comment on above: Performed By: #### B CAMILO GONCALVES, CDP ####[facility] [address] [place] [address])[phone] Director: Ramiro Mark MD Monocytes (Bld) [#/Vol] 0.61 10*3/uL Normal 0.10-1.20 [facility] Comment on above: Performed By: #### B CAMILO GONCALVES, CDP ####[facility] Epoz[address]ak[address]bxp[address] [place], [place] [phone])[phone] Director: Ramiro Mark MD Monocytes/100 WBC (Bld) 9 % Normal 3-12 [facility] Comment on above: Performed By: #### B MPX, KELLYPPRA, CDP ####[facility] V[address]cjds[address]cj26[address] [place], [place] [id number])[phone] Director: Ramiro Mark MD Neutrophil (Seg) 65 % Normal 36-65 [facility] Comment on above: Performed By: #### B MPX, KELLYPPRA, CDP ####[facility] [address] [place] [address] [phone] Director: Ramiro Mark MD NRBC Automated 0.0 per 100 WBC Normal 0.0 [facility] Comment on above: Performed By: #### B MPXCAMILO, CDP ####[facility] [address] [place] [address] [id number])[phone] Director: Ramiro Mark MD Platelet mean volume (Bld) [Entitic vol] 10.1 fL Normal 8.1-13.5 [facility] Comment on above: Performed By: #### B CAMILO GONCALVES, CDP ####[facility] [address] [place] [address])[phone] Director: Ramiro Mark MD Platelets (Bld) [#/Vol] 210 10*3/uL Normal 138-453 [facility] Comment on above: Performed By: #### B CAMILO GONCALVES, CDP ####[facility] Y[address] [place], [place] [phone])[phone] Director: Ramiro Mark MD RBC (Bld) [#/Vol] 3.09 10*6/uL Low 4.21-5.77 [facility] Comment on above: Performed By: #### B MPXCAMILO, CDP ####[facility] [address]ulf[address]ufvi38[address] [place], [place] [phone])[phone] Director: Ramiro Mark MD WBC (Bld) [#/Vol] 7.2 10*3/uL Normal 3.5-11.3 [facility] Comment on above: Performed By: #### B CAMILO GONCALVES CDP ####[facility] Hospital[facility]KS[facility]A [address]czkyzpepi[address] [place], [place] [id number] [facility] Director: Ramiro Mark MD Glucose,Whole Bloodon 2023 Glucose [Mass/Vol] 205 mg/dL High 75-110 [facility] Glucose [Mass/Vol] 187 mg/dL High 75-110 [facility] Glucose [Mass/Vol] 203 mg/dL High 75-110 [facility] Glucose [Mass/Vol] 220 mg/dL High 75-110 [facility] Keppraon 10-06-2024 KEPP 30 ug/mL Normal [facility] Comment on above: Result Comment: A re ference range for Keppra has not been well established. The proposed therapeutic range for seizure control is 6-46 ug/mL.Measurement of Levetiracetam (Keppra) can be elevated due to the presence of both Keppra and Brivaracetam (Briviact) in the patient's system.The medications are structurally similar thus cross reactivity is possible.Pharmacokinetics of Keppra are affected by renal function.The relationship between serum concentrations and toxicity is not known. Performed By: #### B CAMILO GONCALVES CDP ####[facility] [address] [place], [place] [id number] [facility] Director: Ramiro Mark MD Levetiracetam Levelon 2023 levETIRAcetam [Mass/Vol] 30 ug/mL [facility] HospitalSpotistic Oligoclonal Bandson 10-06-20 24 CSF Isoelectric Focusing Interpretation See Note [place] Oligo Bands Negative [place] Oligoclonal bands Isoelectric focusing (CSF) [#] 0 [facility] HospitalIMNEXT [facility] CSF IEF Interp See Note Normal [facility] Comment on above: Result Comment: (NOT E)Isoelectric focusing/immunofixation revealed no oligoclonal bandsin either the CSF or the serum. This is considered to be anegative result for oligoclonal bands. Approximately 5 percent ofpatients with clinically definitive multiple sclerosis will have anegative result.INTERPRETIVE INFORMATION: Oligoclonal Bands in CSF and SerumTo ensure accurate result interpretation, it is recommended thatboth CSF and serum specimens be collected on the same day. Ifspecimens are not collected within this specified timeframe, it isadvised to exercise caution when interpreting the results.Performed By: [facility] [address] [place] [address] [id number] Director: Rogelio Miranda MD, PhDCLIA Number: [id number] Performed By: #### A OLIG ####[address] [address] Lab Director: Wil Swanson MD#### OLIG ####[address] [phone] Lab Director: Ramiro Mark MD Oligo Bands Numb 0 Bands Normal 0-1 [facility] Comment on above: Performed By: #### A OLIG ####[address] [address] Lab Director: Wil Swanson MD#### OLIG ####[address] [id number] Lab Director: Ramiro Mark MD Oligoclonal Bands Negative Normal [facility] Comment on above: Performed By: #### A OLIG ####[address] [address] Lab Director: Wil Swanson MD#### OLIG ####[address] [address] Lab Director: Ramiro Mark MD POC Glucose Fingerstickon Glucose [Mass/Vol] 205 mg/dL High 75 - 110 mg/dL [facility] Interpretation and review of laboratory results Abnormal [facility] Glucose [Mass/Vol] 187 mg/dL High 75 - 110 mg/dL [facility] Interpretation and review of laboratory results Abnormal [facility] Glucose [Mass/Vol] 203 mg/dL High 75 - 110 mg/dL [facility] Interpretation and review of laboratory results Abnormal [facility] Glucose [Mass/Vol] 220 mg/dL High 75 - 110 mg/dL [facility] Interpretation and review of laboratory results Abnormal [facility] VITAMIN B1on 10-06-2024 Thiamine pyrophosphate (Bld) [Moles/Vol] 107 nmol/L 70 - 180 nmol/L [facility] Vitamin B1on 10-06-2024 Vitamin B1 107 nmol/L Normal 70-180 [facility] Comment on above: Result Comment: (NOT E)INTERPRETIVE INFORMATION: Vitamin B1, Whole BloodThis assay measures the concentration of thiamine diphosphate(TDP), the primary active form of vitamin B1. Approximately 90percent of vitamin B1 present in whole blood is TDP. Thiamine andthiamine monophosphate, which comprise the remaining 10 percent,are not measured.This test was developed and its performance characteristicsdetermined by [employer]. It has not been cleared orapproved by the [place] Food and Drug Administration. This test wasperformed in a CLIA certified laboratory and is intended forclinical purposes.Performed By: [facility] [place] [id number] Director: Rogelio Miranda MD, PhDCLIA Number: [id number] Performed By: #### B 12JATIN, TOO ####[facility] [place] [address] Lab Director: Ramiro Mark MD#### AVITB1 ####[address] [place], [place] [id number] lab Director: Wil Swanson MD WEST NILE VIRUS, CSFon 10-06 WEST NILE AB IGG CSF 0.38 NINF [facility] WEST NILE AB IGM CSF 0.00 NINF [facility] West Nile Virus, CSFon 10-06 WNV Ab IgG, CSF 0.38 IV Normal <=1.29 [facility] Comment on above: Result Comment: (NOT E)INTERPRETIVE INFORMATION: West Nile Virus Ab IgG by [...] virus detected, suggestive of current or past infection.This test is intended to be used as a semi-quantitative means ofdetecting West Nile virus-specific IgG in CSF samples in whichthere is a clinical suspicion of West Nile Virus infection. Thistest should not be used solely for quantitative purposes, norshould the results be used without correlation to clinical historyor other data. Because other members of the Flaviviridae family,such as Carteret encephalitis virus, show extensivecross-reactivity with West Nile virus, serologic testing specificfor these species should be considered.The detection of antibodies to West Nile virus in cerebrospinalfluid may indicate central nervous system infection. However,consideration must be given to possible contamination by blood ortransfer of serum antibodies across the blood-brain barrier.This test was developed and its performance characteristicsdetermined by [employer]. It has not been cleared orapproved by the [place] Food and Drug Administration. This test wasperformed in a CLIA certified laboratory and is intended forclinical purposes. Performed By: #### C FCNT, CGLU, MEVP, CTP, CFVD ####[facility] [place] [address] Lab Director: Ramiro Mark MD#### ABHINAV BRIGGSCT ####[facility] [place] [address] Lab Director: Wil Swanson MD WNV Ab IgM, CSF 0.00 IV Normal <=0.89 [facility] Comment on above: Result Comment: (NOT E)INTERPRETIVE INFORMATION: West Nile Virus Ab IgM by AL, CSF0.89 IV or less ...... Negative - No significant level of West Nile virus IgM antibody detected.0.90-1.10 IV ......... Equivocal - Questionable presence of West Nile virus IgM antibody detected. Repeat testing in 10-14 days may be helpful.1.11 IV or greater ... Positive - Presence of IgM antibody to West Nile virus detected, suggestive of current or recent infection.This test is intended to be used as a semi-quantitative means ofdetecting West Nile virus-specific IgM in CSF samples in whichthere is a clinical suspicion of West Nile virus infection. Thistest should not be used solely for quantitative purposes, norshould the results be used without correlation to clinical historyor other data. Because other members of the Flaviviridae family,such as Carteret encephalitis virus, show extensivecross-reactivity with West Nile virus, serologic testing specificfor these species should be considered.The detection of antibodies to West Nile virus in cerebrospinalfluid may indicate central nervous system infection. However,consideration must be given to possible contamination by blood ortransfer of serum antibodies across the blood-brain barrier.This test was developed and its performance characteristicsdetermined by [employer]. It has not been cleared orapproved by the [place] Food and Drug Administration. This test wasperformed in a CLIA certified laboratory and is intended forclinical purposes.Performed By: [facility] [place] [id number] Director: Rogelio Miranda MD, PhDCLIA Number: [id number] Performed By: #### C FCNT, CGLU, MEVP, CTP, CFVD ####[facility] [place] [address] Lab Director: Ramiro Mark MD#### CHESTER, ALYMCT ####[facility] [place] [id number] Lab Director: Wil Swanson MD Basic Metab w/rfx MGon 10-05 Anion gap [Moles/Vol] 8 mmol/L Low 9-16 [facility] Comment on above: Performed By: #### C DP, BMPX ####[facility] [place], [place] [phone] Director: Ramiro Mark MD Calcium [Mass/Vol] 7.9 mg/dL Low 8.6-10.4 [facility] Comment on above: Performed By: #### C DP, BMPX ####[address] [phone] Director: Ramiro Mark MD Chloride [Moles/Vol] 103 mmol/L Normal 98-107 [facility] Comment on above: Performed By: #### C DP, BMPX ####[facility] [address] [place] [address] [phone] Director: Ramiro Mark MD CO2 [Moles/Vol] 24 mmol/L Normal 20-31 [facility] Comment on above: Performed By: #### C DP, BMPX ####[address] [phone] Director: Ramiro Mark MD Creatinine [Mass/Vol] 2.0 mg/dL High 0.7-1.2 [facility] Comment on above: Performed By: #### C DP, BMPX ####[address] [phone] Director: Ramiro Mark MD GFR/1.73 sq M.predicted among non-blacks MDRD (S/P/Bld) [Vol rate/Area] 40 mL/min/{1.73_m2} Low >60 [facility] Comment on above: Result Comment: Thes e results are not intended for use in patients <18 years of age.eGFR results are calculated without a race factor using the 2020 CKD-EPI equation.Careful clinical correlation is recommended, particularly when comparing to results calculated using previous equations.The CKD-EPI equation is less accurate in patients with extremes of muscle mass, extra-renal metabolism of creatine, excessive creatine ingestion, or following therapy that affects renal tubular secretion. Performed By: #### C DP, BMPX ####[facility] [address] [place] [address] Lab Director: Ramiro Mark MD Glucose [Mass/Vol] 189 mg/dL High 74-99 [facility] Comment on above: Performed By: #### C DP, BMPX ####[facility] [address] [place] [address] Lab Director: Ramiro Mark MD Potassium [Moles/Vol] 4.5 mmol/L Normal 3.7-5.3 [facility] Comment on above: Performed By: #### C DP, BMPX ####[facility] [address] [place] [address] Lab Director: Ramiro Mark MD Sodium [Moles/Vol] 135 mmol/L Low 136-145 [facility] Comment on above: Performed By: #### C DP, BMPX ####[facility] [address] [place] [address] Lab Director: Ramiro Mark MD Urea nitrogen [Mass/Vol] 46 mg/dL High 6-20 [facility] Comment on above: Performed By: #### C DP, BMPX ####[facility] [address] [place] [address] Lab Director: Ramiro Mark MD Basic Metabolic Panel w/ Ref jose to on 10-05-2024 Anion gap [Moles/Vol] 8 mmol/L Low 9 - 16 mmol/L [facility] Calcium [Mass/Vol] 7.9 mg/dL Low 8.6 - 10. 4 mg/dL [facility] Chloride [Moles/Vol] 103 mmol/L 98 - 10 7 mmol/L [facility] CO2 [Moles/Vol] 24 mmol/L 20 - 31 mmol/L [facility] Creatinine [Mass/Vol] 2.0 mg/dL High 0.7 - 1.2 mg/dL [facility] Est, Glom Filt Rate 40 Low - PINF [facility]St[facility] Glucose [Mass/Vol] 189 mg/dL High 74 - 99 mg/dL [facility] Interpretation and review of laboratory results Abnormal [facility] Potassium [Moles/Vol] 4.5 mmol/L 3.7 - 5.3 mmol/L [facility] Sodium [Moles/Vol] 135 mmol/L Low 136 - 145 mmol/L [facility] Urea nitrogen [Mass/Vol] 46 mg/dL High 6 - 20 mg/dL [facility] CBC with Auto Differentialon 10-05-2024 Basophils (Bld) [#/Vol] 0.04 10*3/uL [facility] Basophils/100 WBC (Bld) 1 % 0 - 2 % [facility] Eosinophils (Bld) [#/Vol] 0.28 10*3/uL [facility] Eosinophils/100 WBC (Bld) 4 % 1 - 4 % [facility] Erythrocyte distribution width (RBC) [Ratio] 13.0 % 11.8 - 14.4 % [facility] Hematocrit (Bld) [Volume fraction] 25.8 % Low 40.7 - 50.3 % [facility] Hemoglobin (Bld) [Mass/Vol] 8.3 g/dL Low 13.0 - 17.0 g/dL [facility] Immature granulocytes (Bld) [#/Vol] 0.03 10*3/uL [facility] Immature granulocytes/100 WBC (Bld) 1 % High 0 [facility] Interpretation and review of laboratory results Abnormal [facility] Lymphocytes/100 WBC (Bld) 20 % Low 24 - 43 % [facility] Lymphocytes/100 WBC (Bld) 1.29 % [facility] MCH (RBC) [Entitic mass] 28.3 pg 25.2 - 33.5 pg [facility] MCHC (RBC) [Mass/Vol] 32.2 g/dL 28.4 - 34.8 g/dL [facility] MCV (RBC) [Entitic vol] 88.1 fL 82.6 - 102.9 fL [facility] Monocytes/100 WBC (Bld) 10 % 3 - 12 % [facility] Monocytes/100 WBC (Bld) 0.68 % [facility] Neutrophils/100 WBC (Bld) 64 % 36 - 65 % [facility] Nucleated RBC/100 WBC (Bld) [Ratio] 0.0 % 0.0 per 100 WBC [facility] Platelet mean volume (Bld) [Entitic vol] 10.4 fL 8.1 - 13.5 fL [facility] Platelets (Bld) [#/Vol] 198 10*3/uL [facility] RBC (Bld) [#/Vol] 2.93 10*6/uL Low 4.21 - 5.7 7 m/uL [facility] [employer] Segmented neutrophils/100 WBC (Bld) 4.20 % [facility] WBC other (Bld) [#/Vol] 6.5 [facility] CBC with Diffon 10-05-2024 Abs. Basophil 0.04 k/uL Normal 0.00-0.20 [facility] Comment on above: Performed By: #### C DP, BMPX ####[facility] HospitalEduoraTadchaosavuq3[address] [place], [place] [address])[phone] Director: Ramiro Mark MD Abs.Imm.Granulocyte 0.03 k/uL Normal 0.00-0.30 [facility] Comment on above: Performed By: #### C DP, BMPX ####[facility] HospitalLOOKSIMA [address]wmjwn[address] [place] [address] Lab Director: Ramiro Mark MD Abs.Neutrophil (Seg) 4.20 k/uL Normal 1.50-8.10 [facility] Comment on above: Performed By: #### C DP, BMPX ####[facility] HospitalLOOKSIMA [address] [place] [address] Lab Director: Ramiro Mark MD Basophils/100 WBC (Bld) 1 % Normal 0-2 [facility] Comment on above: Performed By: #### C DP, BMPX ####[facility] [place] [address] [phone] Director: Ramiro Mark MD Eosinophils (Bld) [#/Vol] 0.28 10*3/uL Normal 0.00-0.44 [facility] Comment on above: Performed By: #### C DP, BMPX ####[address] [address])[phone] Director: Ramiro Mark MD Eosinophils/100 WBC (Bld) 4 % Normal 1-4 [facility] Comment on above: Performed By: #### C DP, BMPX ####[address] [address])[phone] Director: Ramiro Mark MD Erythrocyte distribution width (RBC) [Ratio] 13.0 % Normal 11.8-14.4 [facility] Comment on above: Performed By: #### C DP, BMPX ####[address] [address])[phone] Director: Ramiro Mark MD Hematocrit (Bld) [Volume fraction] 25.8 % Low 40.7-50.3 [facility] Comment on above: Performed By: #### C DP, BMPX ####[address] [address])[phone] Director: Ramiro Mark MD Hemoglobin (Bld) [Mass/Vol] 8.3 g/dL Low 13.0-17.0 [facility] Comment on above: Performed By: #### C DP, BMPX ####[address] [address])[phone] Director: Ramiro Mark MD Immature granulocytes/100 WBC (Bld) 1 % High 0 [facility] Comment on above: Performed By: #### C DP, BMPX ####[address] [address])[phone] Director: Ramiro Mark MD Lymphocytes (Bld) [#/Vol] 1.29 10*3/uL Normal 1.10-3.70 [facility] Comment on above: Performed By: #### C DP, BMPX ####[facility] [address] [place] [address] [id number])[phone] Director: Ramiro Mark MD Lymphocytes/100 WBC (Bld) 20 % Low 24-43 [facility] Comment on above: Performed By: #### C DP, BMPX ####[facility] [address] [place], [place] [address])[phone] Director: Ramiro Mark MD MCH (RBC) [Entitic mass] 28.3 pg Normal 25.2-33.5 [facility] Comment on above: Performed By: #### C DP, BMPX ####[address] [address])[phone] Director: Ramiro Mark MD MCHC (RBC) [Mass/Vol] 32.2 g/dL Normal 28.4-34.8 [facility] Comment on above: Performed By: #### C DP, BMPX ####[address] [phone])[phone] Director: Ramiro Mark MD MCV (RBC) [Entitic vol] 88.1 fL Normal 82.6-102.9 [facility] Comment on above: Performed By: #### C DP, BMPX ####[facility] [address] [place], [place] [id number])[phone] Director: Ramiro Mark MD Monocytes (Bld) [#/Vol] 0.68 10*3/uL Normal 0.10-1.20 [facility] Comment on above: Performed By: #### C DP, BMPX ####[facility] [address] [place], [place] [phone] Director: Ramiro Mark MD Monocytes/100 WBC (Bld) 10 % Normal 3-12 [facility] Comment on above: Performed By: #### C DP, BMPX ####[address] [phone] Director: Ramiro Mark MD Neutrophil (Seg) 64 % Normal 36-65 [facility] Comment on above: Performed By: #### C DP, BMPX ####[address] [phone] Director: Ramiro Mark MD NRBC Automated 0.0 per 100 WBC Normal 0.0 [facility] Comment on above: Performed By: #### C DP, BMPX ####[address] [phone] Director: Ramiro Mark MD Platelet mean volume (Bld) [Entitic vol] 10.4 fL Normal 8.1-13.5 [facility] Comment on above: Performed By: #### C DP, BMPX ####[address] [phone] Director: Ramiro Mark MD Platelets (Bld) [#/Vol] 198 10*3/uL Normal 138-453 [facility] Comment on above: Performed By: #### C DP, BMPX ####[address] [address] Lab Director: Ramiro Mark MD RBC (Bld) [#/Vol] 2.93 10*6/uL Low 4.21-5.77 [facility] Comment on above: Performed By: #### C DP, BMPX ####[address] [phone] Director: Raimro Mark MD WBC (Bld) [#/Vol] 6.5 10*3/uL Normal 3.5-11.3 [facility] Comment on above: Performed By: #### C DP, BMPX ####[facility] [address] [place] [id number] [facility] Director: Ramiro Mark MD Cytology, Non-Gynon 10-05-20 [facility] Electrophysiology procedureo n 10-05-2024 Body surface area Derived from formula 2 m2 [facility] Glucose,Whole Bloodon 2023 Glucose [Mass/Vol] 167 mg/dL High 75-110 [facility] Glucose [Mass/Vol] 268 mg/dL High 75-110 [facility] Glucose [Mass/Vol] 153 mg/dL High -110 [facility] Glucose [Mass/Vol] 177 mg/dL High [facility]110 [facility] Lyme Disease AB, CSFon 10-05 B. burgdorferi Ab IA Qn (CSF) 0.18 NINF [facility] Lyme Disease Ab,CSFon 2023 B burgdorferi Ab,CSF 0.18 IV Normal <=0.90 [facility] Comment on above: Result Comment: (NOT E)When Borrelia burgdorferi VlsE1/pepC10 assay is negative furthertesting is not recommended and will not be performed.REFERENCE INTERVAL: B. burgdorferi VlsE1/pepC10 Abs, CSF 0.90 IV or less ....... Negative - VlsE1 and pepC10 antibodies to B. burgdorferi not detected. 0.91-1.09 IV .......... Equivocal - Repeat testing in 10-14 days may be helpful. 1.10 IV or greater .... Positive - VlsE1 and pepC10 antibodies to B. burgdorferi detected.The detection of antibodies to Borrelia burgdorferi incerebrospinal fluid may indicate central nervous system infection.However, consideration must be given to possible contamination byblood or transfer of serum antibodies across the blood-brainbarrier. Lyme disease diagnosis in serum is recommended prior toany CSF studies.This test was developed and its performance characteristicsdetermined by [employer]. It has not been cleared orapproved by the [place] Food and Drug Administration. This test wasperformed in a CLIA certified laboratory and is intended forclinical purposes.Performed By: [facility] [place], [place] [address]Ymnqnsfgsn Director: Rogelio Miranda MD, PhDCLIA Number: [id number] Performed By: #### C FCNT, CGLU, MEVP, CTP, CFVD ####[facility]duoraAtbxufkfh[facility]j[address] [place] [address] lab Director: Ramiro Mark MD#### AWNCSF, ALYMCT ####[facility] [place], [place] [phone] lab Director: Wil Swanson MD No Panel Informationon 10-05 [facility] CV CPACS HEMO [facility] Radiology Study observation (narrative) [facility] No Panel InformationOrdered By: Adrian Bryant on 10-05-2024 [facility] Blog Talk [employer] Work Phone: Non-Grommet Man Cytologyon Case No: [id number] [facility] Comment on above: Performed By: #### N STRAIGHT CUTTER ####[employer] [place] [address] lab Director: Ramiro Mark MD POC Glucose Fingerstickon Glucose [Mass/Vol] 167 mg/dL High 75 - 110 mg/dL [facility] Interpretation and review of laboratory results Abnormal [facility] Glucose [Mass/Vol] 268 mg/dL High 75 - 110 mg/dL [facility] Interpretation and review of laboratory results Abnormal [facility] Glucose [Mass/Vol] 153 mg/dL High 75 - 110 mg/dL [facility] Interpretation and review of laboratory results Abnormal [facility] Glucose [Mass/Vol] 177 mg/dL High 75 - 110 mg/dL [facility] Interpretation and review of laboratory results Abnormal [facility] SURGICAL PATHOLOGY REPORTon 10-05-2024 Surgical Pathology Report [facility] US Heart Transesophagealon 1 12-06-2023 Body surface area Derived from formula 2 m2 [facility] EF Physician 55 % [facility] CV CPACS HEMO [facility] Radiology Study observation (narrative) [facility] VDRL, CSFon 10-05-2024 Reagin Ab VDRL Ql (CSF) Non-Reactive NONREACTIVE [facility] VDRL, Qual, CSFon 10-05-2024 VDRL, Qual, CSF Non-Reactive Normal NR [facility] Comment on above: Performed By: #### C FCNT, CGLU, MEVP, CTP, CFVD ####[facility] [address] [place] [address] Lab Director: Ramiro Mark MD#### CHESTER, ALYMCT ####[facility] [address] [place] [address] Lab Director: Wil Swanson MD Basic Metab w/rfx MGon 10-04 Anion gap [Moles/Vol] 10 mmol/L Normal 9-16 [facility] Comment on above: Performed By: #### P T, CDP, BMPX ####[facility] [address] [place] [address] Lab Director: Ramiro Mark MD Calcium [Mass/Vol] 7.9 mg/dL Low 8.6-10.4 [facility] Comment on above: Performed By: #### P T, CDP, BMPX ####[facility] [address] [place] [address] Lab Director: Ramiro Mark MD Chloride [Moles/Vol] 102 mmol/L Normal 98-107 [facility] Comment on above: Performed By: #### P T, CDP, BMPX ####[facility] [address] [place] [address] Lab Director: Ramiro Mark MD CO2 [Moles/Vol] 21 mmol/L Normal 20-31 [facility] Comment on above: Performed By: #### P T, CDP, BMPX ####[facility] [address] [place], [place] [phone] Director: Ramiro Mark MD Creatinine [Mass/Vol] 1.8 mg/dL High 0.7-1.2 [facility] Comment on above: Performed By: #### P T, CDP, BMPX ####[address] [address])[phone] Director: Ramiro Mark MD GFR/1.73 sq M.predicted among non-blacks MDRD (S/P/Bld) [Vol rate/Area] 45 mL/min/{1.73_m2} Low >60 [facility] Comment on above: Result Comment: Thes e results are not intended for use in patients <18 years of age.eGFR results are calculated without a race factor using the 2020 CKD-EPI equation.Careful clinical correlation is recommended, particularly when comparing to results calculated using previous equations.The CKD-EPI equation is less accurate in patients with extremes of muscle mass, extra-renal metabolism of creatine, excessive creatine ingestion, or following therapy that affects renal tubular secretion. Performed By: #### P T, CDP, BMPX ####[facility] [address] [place], [place] [phone] Director: Ramiro Mark MD Glucose [Mass/Vol] 161 mg/dL High 74-99 [facility] Comment on above: Performed By: #### P T, CDP, BMPX ####[facility] [address] [place], [place] [phone] Director: Ramiro Mark MD Potassium [Moles/Vol] 4.1 mmol/L Normal 3.7-5.3 [facility] Comment on above: Performed By: #### P T, CDP, BMPX ####[facility] [address] [place], [place] [id number] Lab Director: Ramiro Mark MD Sodium [Moles/Vol] 133 mmol/L Low 136-145 [facility] Comment on above: Performed By: #### P T, CDP, BMPX ####[facility] [address] [place], [place] [phone] lab Director: Ramiro Mark MD Urea nitrogen [Mass/Vol] 40 mg/dL High 6-20 [facility] Comment on above: Performed By: #### P T, CDP, BMPX ####[facility] [address] [place], [place] [phone] lab Director: Ramiro Mark MD Basic Metabolic Panel w/ Ref jose to MGon 10-04-2024 Anion gap [Moles/Vol] 10 mmol/L 9 - 16 mmol/L [facility] Calcium [Mass/Vol] 7.9 mg/dL Low 8.6 - 10. 4 mg/dL [facility] Chloride [Moles/Vol] 102 mmol/L 98 - 10 7 mmol/L [facility] CO2 [Moles/Vol] 21 mmol/L 20 - 31 mmol/L [facility] Creatinine [Mass/Vol] 1.8 mg/dL High 0.7 - 1.2 mg/dL [facility] Est, Glom Filt Rate 45 Low - PINF [facility] Glucose [Mass/Vol] 161 mg/dL High 74 - 99 mg/dL [facility] Interpretation and review of laboratory results Abnormal [facility] Potassium [Moles/Vol] 4.1 mmol/L 3.7 - 5.3 mmol/L [facility] Sodium [Moles/Vol] 133 mmol/L Low 136 - 145 mmol/L [facility] Urea nitrogen [Mass/Vol] 40 mg/dL High 6 - 20 mg/dL [facility] CBC with Auto Differentialon 10-04-2024 Basophils (Bld) [#/Vol] 0.03 10*3/uL [facility] Basophils/100 WBC (Bld) 0 % 0 - 2 % [facility] Eosinophils (Bld) [#/Vol] 0.28 10*3/uL [facility] Eosinophils/100 WBC (Bld) 4 % 1 - 4 % [facility] Erythrocyte distribution width (RBC) [Ratio] 12.9 % 11.8 - 14.4 % [facility] Hematocrit (Bld) [Volume fraction] 29.9 % Low 40.7 - 50.3 % [facility] Hemoglobin (Bld) [Mass/Vol] 9.8 g/dL Low 13.0 - 17.0 g/dL [facility] Immature granulocytes (Bld) [#/Vol] [facility] Immature granulocytes/100 WBC (Bld) 0 % 0 [facility] Interpretation and review of laboratory results Abnormal [facility] Lymphocytes/100 WBC (Bld) 15 % Low 24 - 43 % [facility] Lymphocytes/100 WBC (Bld) 1.18 % [facility] MCH (RBC) [Entitic mass] 28.2 pg 25.2 - 33.5 pg [facility] MCHC (RBC) [Mass/Vol] 32.8 g/dL 28.4 - 34.8 g/dL [facility] MCV (RBC) [Entitic vol] 85.9 fL 82.6 - 102.9 fL [facility] Monocytes/100 WBC (Bld) 8 % 3 - 12 % [facility] Monocytes/100 WBC (Bld) 0.64 % [facility] Neutrophils/100 WBC (Bld) 73 % High 36 - 65 % [facility] Nucleated RBC/100 WBC (Bld) [Ratio] 0.0 % 0.0 per 100 WBC [facility] Platelet mean volume (Bld) [Entitic vol] 10.7 fL 8.1 - 13.5 fL [facility] Platelets (Bld) [#/Vol] 225 10*3/uL [facility] RBC (Bld) [#/Vol] 3.48 10*6/uL Low 4.21 - 5.7 7 m/uL [facility] Segmented neutrophils/100 WBC (Bld) 5.80 % [facility] WBC other (Bld) [#/Vol] 8.0 [facility] CBC with Diffon 10-04-2024 Abs. Basophil 0.03 k/uL Normal 0.00-0.20 [facility] Comment on above: Performed By: #### P T, CDP, BMPX ####[facility] [address] [place], [place] [address])[phone] Director: Ramiro Mark MD Abs.Imm.Granulocyte <0.03 Normal 0.00-0.30 [facility] Comment on above: Performed By: #### P T, CDP, BMPX ####[place], [place] [address])[phone] Director: Ramiro Mark MD Abs.Neutrophil (Seg) 5.80 k/uL Normal 1.50-8.10 [facility] Comment on above: Performed By: #### P T, CDP, BMPX ####[place], [place] [address])[phone] Director: Ramiro Mark MD Basophils/100 WBC (Bld) 0 % Normal 0-2 [facility] Comment on above: Performed By: #### P T, CDP, BMPX ####[place] [address] Lab Director: Ramiro Mark MD Eosinophils (Bld) [#/Vol] 0.28 10*3/uL Normal 0.00-0.44 [facility] Comment on above: Performed By: #### P T, CDP, BMPX ####[place], [place] [address])[phone] Director: Ramiro Mark MD Eosinophils/100 WBC (Bld) 4 % Normal 1-4 [facility] Comment on above: Performed By: #### P T, CDP, BMPX ####[facility] [address] [place] [address] Lab Director: Ramiro Mark MD Erythrocyte distribution width (RBC) [Ratio] 12.9 % Normal 11.8-14.4 [facility] Comment on above: Performed By: #### P T, CDP, BMPX ####[facility] [address] [place], [place] [address])[phone] Director: Ramiro Mark MD Hematocrit (Bld) [Volume fraction] 29.9 % Low 40.7-50.3 [facility] Comment on above: Performed By: #### P T, CDP, BMPX ####[address] [address])[phone] Director: Ramiro Mark MD Hemoglobin (Bld) [Mass/Vol] 9.8 g/dL Low 13.0-17.0 [facility] Comment on above: Performed By: #### P T, CDP, BMPX ####[place], [place] [address])[phone] Director: Ramiro Mark MD Immature granulocytes/100 WBC (Bld) 0 % Normal 0 [facility] Comment on above: Performed By: #### P T, CDP, BMPX ####[place], [place] [address])[phone] Director: Ramiro Mark MD Lymphocytes (Bld) [#/Vol] 1.18 10*3/uL Normal 1.10-3.70 [facility] Comment on above: Performed By: #### P T, CDP, BMPX ####[address] [address])[phone] Director: Ramiro Mark MD Lymphocytes/100 WBC (Bld) 15 % Low 24-43 [facility] Comment on above: Performed By: #### P T, CDP, BMPX ####[facility] [address] [place], [place] [phone] Director: Ramiro Mark MD MCH (RBC) [Entitic mass] 28.2 pg Normal 25.2-33.5 [facility] Comment on above: Performed By: #### P T, CDP, BMPX ####[facility] [address] [place] [address] [phone] Director: Ramiro Mark MD MCHC (RBC) [Mass/Vol] 32.8 g/dL Normal 28.4-34.8 [facility] Comment on above: Performed By: #### P T, CDP, BMPX ####[address] [phone] Director: Ramiro Mark MD MCV (RBC) [Entitic vol] 85.9 fL Normal 82.6-102.9 [facility] Comment on above: Performed By: #### P T, CDP, BMPX ####[facility] [address] [place] [address])[phone] Director: Ramiro Mark MD Monocytes (Bld) [#/Vol] 0.64 10*3/uL Normal 0.10-1.20 [facility] Comment on above: Performed By: #### P T, CDP, BMPX ####[facility] [address] [place] [address] [phone] Director: Ramiro Mark MD Monocytes/100 WBC (Bld) 8 % Normal 3-12 [facility] Comment on above: Performed By: #### P T, CDP, BMPX ####[facility] [address] [place] [address] [phone] Director: Ramiro Mark MD Neutrophil (Seg) 73 % High 36-65 [facility] Comment on above: Performed By: #### P T, CDP, BMPX ####[address] [phone] Director: Ramiro Mark MD NRBC Automated 0.0 per 100 WBC Normal 0.0 [facility] Comment on above: Performed By: #### P T, CDP, BMPX ####[address] [phone] Director: Ramiro Mark MD Platelet mean volume (Bld) [Entitic vol] 10.7 fL Normal 8.1-13.5 [facility] Comment on above: Performed By: #### P T, CDP, BMPX ####[address] [phone] Director: Ramiro Mark MD Platelets (Bld) [#/Vol] 225 10*3/uL Normal 138-453 [facility] Comment on above: Performed By: #### P T, CDP, BMPX ####[address] [phone])[phone] Director: Ramiro Mark MD RBC (Bld) [#/Vol] 3.48 10*6/uL Low 4.21-5.77 [facility] Comment on above: Performed By: #### P T, CDP, BMPX ####[address] [phone] Director: Ramiro Mark MD WBC (Bld) [#/Vol] 8.0 10*3/uL Normal 3.5-11.3 [facility] Comment on above: Performed By: #### P T, CDP, BMPX ####[address] [address] Lab Director: Ramiro Mark MD CSF Cell Counton 10-04-2024 Appearance (U) Clear [facility] Comment on above: Performed By: #### C FCNT, CGLU, MEVP, CTP, CFVD ####[address] [place] [address] Lab Director: Ramiro Mark MD#### DESHAUN BRIGGS ####[facility] [address] [place] [address] Lab Director: Wil Swanson MD Clot Check None Seen [facility] Comment on above: Performed By: #### C FCNT, CGLU, MEVP, CTP, CFVD ####[facility] [address] [place] [address] Lab Director: Ramiro Mark MD#### DESHAUN BRIGGS ####[facility] [address] [place] [address] Lab Director: Wil Swanson MD Color (U) Colorless [facility] Comment on above: Performed By: #### C FCNT, CGLU, MEVP, CTP, CFVD ####[facility] [address] [place] [address] Lab Director: Ramiro Mark MD#### DESHAUN BRIGGS ####[facility] [address] [place] [address] [phone] Lab Director: Wil Swanson MD CSF Total Nucleated Cells 2 cells/uL Normal 0-5 [facility] Comment on above: Result Comment: Unab le to perform differential due to a low number of TNC/WBC's in specimen. Performed By: #### C FCNT, CGLU, MEVP, CTP, CFVD ####[facility] [address] [place] [address] Lab Director: Ramiro Mark MD#### ABHINAV BRIGGSCT ####[facility] [address] [place] [address] Lab Director: Wil Swanson MD RBC (Bld) [#/Vol] 0 10*6/uL High 0 [facility] Comment on above: Performed By: #### C FCNT, CGLU, MEVP, CTP, CFVD ####[address] [address] Lab Director: Ramiro Mark MD#### CHESTER, ALYMCT ####[facility] [address] [place] [address] Lab Director: Wil Swanson MD Tube Number 3 [facility] Comment on above: Performed By: #### C FCNT, CGLU, MEVP, CTP, CFVD ####[address] [address] Lab Director: Ramiro Mark MD#### CHESTER, ALYMCT ####[facility] [address] [place] [address] [phone] Lab Director: Wil Swanson MD Xanthochromia ABSENT [facility] Comment on above: Performed By: #### C FCNT, CGLU, MEVP, CTP, CFVD ####[address] [address] Lab Director: Ramiro Mark MD#### CHESTER, ALYMCT ####[facility] [address] [place] [address] Lab Director: Wil Swanson MD Volume 8 mL [facility] Comment on above: Performed By: #### C FCNT, CGLU, MEVP, CTP, CFVD ####[address] [address] Lab Director: Ramiro Mark MD#### TAMMYSJohn, ALYMCT ####[facility] [address] [place] [address] Lab Director: Wil Swanson MD Cell Count with Differential , CSFon 10-04-2024 Appearance (CSF) Clear [facility] Cells Counted Total (Bronch spec) [#] 2 [facility] Clot Check None Seen [facility] Color (CSF) Colorless [facility] Interpretation and review of laboratory results Abnormal [facility] RBC Manual cnt (Body fld) [#/Vol] 3 High 0 cells/uL [facility] Specimen volume (CSF) 8 mL [facility] Tube number Nom (CSF) [ID] 3 [facility] Xanthochromia Ql (CSF) ABSENT [facility] Glucose, CSFon 10-04-2024 Glucose (CSF) [Mass/Vol] 73 mg/dL High 40 - 70 mg/dL [facility] Glucose,CSFon 10-04-2024 Glucose [Mass/Vol] 73 mg/dL High 40-70 [facility] Comment on above: Performed By: #### C FCNT, CGLU, MEVP, CTP, CFVD ####[employer] [address] [place] [address] Lab Director: Ramiro Mark MD#### AWNCSF, ALYMCT ####[facility] [address] [place] [address] Lab Director: Wil Swanson MD Glucose,Whole Bloodon 2023 Glucose [Mass/Vol] 199 mg/dL High 75-110 [facility] Glucose [Mass/Vol] 197 mg/dL High 75-110 [facility] Glucose [Mass/Vol] 161 mg/dL High 75-110 [facility] Glucose [Mass/Vol] 148 mg/dL High 75-110 [facility] Guidance for puncture of Lum bar spineon 10-04-2024 MHPN RIS CONSOLIDATED PN RIS CONSOLIDATED [facility] Radiology Study observation (narrative) [facility] Guidance for puncture of Lum bar spineOrdered By: Faustino Hanna on 10-04-2024 [facility] [employer] Work Phone: IR LUMBAR PUNCTURE FOR DIAGN OSISon 10-04-2024 IR LUMBAR PUNCTURE FOR DIAGNOSIS [facility] Meningitis Encephalitis Pane l CSF, Molecularon 10-04-2024 C. gattii+neoformans DNA MEETA+non-probe Ql (CSF) Not detected Not Detected [facility] CMV DNA MEETA+non-probe Ql (CSF) Not detected Not Detected [facility] E. coli K1 DNA MEETA+non-probe Ql (CSF) Not detected Not Detected [facility] Enterovirus RNA MEETA+non-probe Ql (CSF) Not detected Not Detected [facility] H. influenzae DNA MEETA+non-probe Ql (CSF) Not detected Not Detected [facility] HHV 6 DNA MEETA+non-probe Ql (CSF) Not detected Not Detected [facility] HSV 1 DNA MEETA+non-probe Ql (CSF) Not detected Not Detected [facility] HSV 2 DNA MEETA+non-probe Ql (CSF) Not detected Not Detected [facility] L. monocytogenes DNA MEETA+non-probe Ql (CSF) Not detected Not Detected [facility] N. meningitidis DNA MEETA+non-probe Ql (CSF) Not detected Not Detected [facility] Parechovirus A RNA MEETA+non-probe Ql (CSF) Not detected Not Detected [facility] S. agalactiae DNA MEETA+non-probe Ql (CSF) Not detected Not Detected [facility] S. pneumoniae DNA MEETA+non-probe Ql (CSF) Not detected Not Detected [facility] Specimen Description .CSF [facility] VZV DNA MEETA+non-probe Ql (CSF) Not detected Not Detected [facility] Meningitis Panelon C. neoformans/gattii Not detected Normal NOTDET [facility] Comment on above: Result Comment: Perf ormed by multiplexed nucleic acid assay. Performed By: #### C FCNT, CGLU, MEVP, CTP, CFVD ####[place] [address] [facility] Director: Ramiro Mark MD#### DESHAUN BRIGGS ####[facility] [address] [place] [address] Lab Director: Wil Swanson MD Cytomegalovirus Not detected Normal [facility] Comment on above: Performed By: #### C FCNT, CGLU, MEVP, CTP, CFVD ####[facility] [address] [place] [address] Lab Director: Ramiro Mark MD#### ARTUR BRIGGSYMCT ####[facility] [address] [place] [address] [phone] Lab Director: Wil Swanson MD Enterovirus Not detected Normal [facility] Comment on above: Performed By: #### C FCNT, CGLU, MEVP, CTP, CFVD ####[facility] [address] [place] [address] Lab Director: Ramiro Mark MD#### DESHAUN BRIGGS ####[facility] [address] [place] [address] [phone] Lab Director: Wil Swanson MD Escherichia coli K1 Not detected Normal [facility] Comment on above: Performed By: #### C FCNT, CGLU, MEVP, CTP, CFVD ####[facility] [address] [place] [address] Lab Director: Ramiro Mark MD#### ARTUR BRIGGSYMCT ####[facility] [address] [place] [address] [phone] Lab Director: Wil Swanson MD Haemoph. influenzae Not detected Normal [facility] Comment on above: Performed By: #### C FCNT, CGLU, MEVP, CTP, CFVD ####[facility] [address] [place] [address] Lab Director: Ramiro Mark MD#### CHESTER, ALYMCT ####[facility] Pveuizsbbcrg[address] [place], [place] [id number] Lab Director: Wil Swanson MD HSV-1 Not detected Normal [facility] Comment on above: Performed By: #### C FCNT, CGLU, MEVP, CTP, CFVD ####[facility] [address] [place] [address] Lab Director: Ramiro Mark MD#### CHESTER, ALYMCT ####[facility] [address] [place] [address] [phone] Lab Director: Wil Swanson MD HSV-2 Not detected Normal [facility] Comment on above: Performed By: #### C FCNT, CGLU, MEVP, CTP, CFVD ####[place] [address] Lab Director: Ramiro Mark MD#### CHESTER, ALYMCT ####[facility] [address] [place] [address] [phone] Lab Director: Wil Swanson MD Human herpesvirus 6 Not detected Normal [facility] Comment on above: Performed By: #### C FCNT, CGLU, MEVP, CTP, CFVD ####[address] [address] Lab Director: Ramiro Mark MD#### CHESTER, ALYMCT ####[facility] [address] [place] [address] [phone] Lab Director: Wil Swanson MD Human parechovirus Not detected Normal [facility] Comment on above: Performed By: #### C FCNT, CGLU, MEVP, CTP, CFVD ####[facility] [address] [place] [address] Lab Director: Ramiro Mark MD#### CHESTER, ALYMCT ####[facility] Dumdzbfoonlb694 [place] [address] Lab Director: Wil Swanson MD List. monocytogenes Not detected Normal [facility] Comment on above: Performed By: #### C FCNT, CGLU, MEVP, CTP, CFVD ####[facility] [address] [place] [address] Lab Director: Ramiro Mark MD#### CHESTER, ALYMCT ####[facility] [address] [place] [address] [id number] Lab Director: Wil Swanson MD Neis. meningitidis Not detected Normal [facility] Comment on above: Performed By: #### C FCNT, CGLU, MEVP, CTP, CFVD ####[facility] Um[address] [place] [address] Lab Director: Ramiro Mark MD#### CHESTER ALYMCT ####[facility] Q[address] [place] [address] [phone] Lab Director: Wil Swanson MD Strep. agalactiae Not detected Normal [facility] Comment on above: Performed By: #### C FCNT, CGLU, MEVP, CTP, CFVD ####[facility] [address] [place] [address] Lab Director: Ramiro Mark MD#### CHESTER, ALYMCT ####[facility] [address] [place] [address] Lab Director: Wil Swanson MD Strep. pneumoniae Not detected Normal [facility] Comment on above: Performed By: #### C FCNT, CGLU, MEVP, CTP, CFVD ####[facility] X[address] [place] [address] lab Director: Ramiro Mark MD#### ARTUR BRIGGSYMCT ####[facility] Xraqtfnhsrmu[address] [place], [place] [phone] Lab Director: Wil Swanson MD Varicella-zoster Not detected Normal [facility] Comment on above: Performed By: #### C FCNT, CGLU, MEVP, CTP, CFVD ####[address] [address] lab Director: Ramiro Mark MD#### ABHINAV BRIGGSCT ####[facility] [address] [place] [address] lab Director: Wil Swanson MD Source: .CSF Normal [facility] Comment on above: Performed By: #### C FCNT, CGLU, MEVP, CTP, CFVD ####[address] [address] lab Director: Ramiro Mark MD#### DESHAUN BRIGGS ####[facility] [address] [place] [address] lab Director: Wil Swanson MD Miscellaneouson 10-04-2024 Test Name ENC2 [facility] Comment on above: Performed By: #### C MIS1 ####[address] [address] Lab Director: Ramiro Mark MD No Panel Informationon 10-04 Interpretation and review of laboratory results Abnormal [facility] Oligoclonal Band Profileon 1 12-05-2023 Albumin Index - CSF 143.7 High <9.0 [facility] Comment on above: Performed By: #### A OLIG ####[facility] [address] [place], [place] [phone] Lab Director: Wil Swanson MD#### OLIG ####[facility] Soulhfeqmtbc1304 [place] [address] Lab Director: Ramiro Mark MD Albumin, CSF 431 mg/L High 70-350 [facility] Comment on above: Performed By: #### A OLIG ####[facility] [address] [place] [address] Lab Director: Wil Swanson MD#### OLIG ####[address] [address] Lab Director: Ramiro Mark MD IgG [Mass/Vol] 769 mg/dL Normal 700-1600 [facility] Comment on above: Performed By: #### A OLIG ####[facility] [address] [place] [address] Lab Director: Wil Swanson MD#### OLIG ####[address] [address] Lab Director: Ramiro Mark MD IgG Index, CSF 0.81 High <0.70 [facility] Comment on above: Performed By: #### A OLIG ####[facility] [address] [place] [address] Lab Director: Wil Swanson MD#### OLIG ####[facility] [place] [address] Lab Director: Ramiro Mark MD IgG Synthesis 18.0 mg/24 h High <3.3 [facility] Comment on above: Performed By: #### A OLIG ####[facility] [address] [place] [address] Lab Director: Wil Swanson MD#### OLIG ####[facility] [place] [address] Lab Director: Ramiro Mark MD IgG, CSF 9.0 mg/dL High 1.0-3.0 [facility] Comment on above: Performed By: #### A OLIG ####[facility] [address] [place] [address] [phone] Lab Director: Wil Swanson MD#### OLIG ####[address] [phone] Lab Director: Ramiro Mark MD Oligoclonal Bands Oligoclonal bands ar e performed at [facility] using isoelectric focusing [facility] Comment on above: Result Comment: and immunofixation. Performed By: #### A OLIG ####[address] [phone] Lab Director: Wil Swanson MD#### OLIG ####[address] [id number] lab Director: Ramiro Mark MD Albumin [Mass/Vol] 3.0 g/dL Low 3.5-5.2 [facility] Comment on above: Performed By: #### A OLIG ####[address] [phone] Lab Director: Wil Swanson MD#### OLIG ####[address] [phone] Lab Director: Ramiro Mark MD Oligoclonal Bandingon 2023 Albumin (CSF) [Mass/Vol] 431 mg/L High 70 - 350 mg/L [facility] Albumin [Mass/Vol] 3.0 g/dL Low 3.5 - 5.2 g/dL [facility] Albumin Index 143.7 High NINF - 9.0 [facility] [employer] IgG (CSF) [Mass/Vol] 9.0 mg/dL High 1.0 - 3 .0 mg/dL [facility] IgG [Mass/Vol] 769 mg/dL 700 - 1600 mg/dL [facility] IgG Index, CSF 0.81 High NINF - 0.70 [facility] IgG Synthesis Rate, CSF 18.0 High NINF [facility] Interpretation and review of laboratory results Abnormal [facility] Oligo Bands Oligoclonal bands ar e performed at [facility] [employer] using isoelectric focusing and immunofixation. [facility] POC Glucose Fingerstickon Glucose [Mass/Vol] 199 mg/dL High 75 - 110 mg/dL [facility] Interpretation and review of laboratory results Abnormal [facility] Glucose [Mass/Vol] 197 mg/dL High 75 - 110 mg/dL [facility] Interpretation and review of laboratory results Abnormal [facility] Glucose [Mass/Vol] 161 mg/dL High 75 - 110 mg/dL [facility] Interpretation and review of laboratory results Abnormal [facility] Glucose [Mass/Vol] 148 mg/dL High 75 - 110 mg/dL [facility] Interpretation and review of laboratory results Abnormal [facility] PTon 10-04-2024 INR Coag (PPP) [Relative time] 1.1 {INR} Normal [facility] Comment on above: Result Comment: Ther apeutic Range: Moderate Anticoagulant Intensity: INR = 2.0-3.0 High Anticoagulant Intensity: INR = 2.5-3.5 Performed By: #### P TCHIQUI, BMPX ####[employer] [place] [id number] lab Director: Ramiro Mark MD PT Coag (PPP) [Time] 13.6 s Normal 11.7-14.9 [facility] Comment on above: Performed By: #### P TCHIQUI, BMPX ####[employer] [address]5483 [place] [address] lab Director: Ramiro Mark MD Protein, CSFon 10-04-2024 Protein (CSF) [Mass/Vol] 78.9 mg/dL High 15.0 - 45.0 mg/dL [facility] Protein, Total, CSFon 2023 Total Protein - CSF 78.9 mg/dL High 15.0-45.0 [facility] Comment on above: Performed By: #### C FCNT, CGLU, MEVP, CTP, CFVD ####[address] [address] Lab Director: Ramiro Mark MD#### AWNCSJohn, ALYMCT ####[facility] [address] [place], [place] [id number] Lab Director: Wil Swanson MD Protime-INRon 10-04-2024 [facility] Surgical Pathology Reporton 10-04-2024 Surgical Pathology Report [facility] B12/Folate Panelon Cobalamin (Vitamin B12) [Mass/Vol] 791 pg/mL Normal 232-1245 [facility] Comment on above: Performed By: #### Bradley HAYWOOD TREP ####[address] [address] lab Director: Ramiro Mark MD#### AVITB1 ####[facility] [address] [place] [address] Lab Director: Wil Swanson MD Folic Acid 11.5 ng/mL Normal 4.8-24.2 [facility] Comment on above: Performed By: #### Bradley HAYWOOD, TREP ####[address] [address] Lab Director: Ramiro Mark MD#### AVITB1 ####[facility] [address] [place] [address] Lab Director: Wil Swanson MD Basic Metab w/rfx MGon 10-03 Anion gap [Moles/Vol] 11 mmol/L Normal 9-16 [facility] Comment on above: Performed By: #### B MPX, TSHX, CDP ####[facility] [address] [place] [address] Lab Director: Ramiro Mark MD Calcium [Mass/Vol] 7.7 mg/dL Low 8.6-10.4 [facility] Comment on above: Performed By: #### B MPX, TSHX, CDP ####[facility] [address]efhu[address]758 [place], [place] [phone])[phone] Director: Ramiro Mark MD Chloride [Moles/Vol] 104 mmol/L Normal 98-107 [facility] Comment on above: Performed By: #### B MPX, TSHX, CDP ####[facility] [address] [place], [place] [phone])[phone] Director: Ramiro Mark MD CO2 [Moles/Vol] 20 mmol/L Normal 20-31 [facility] Comment on above: Performed By: #### B MPX, TSHX, CDP ####[facility] [address]eltcim[address] [place], [place] [phone] Director: Ramiro Mark MD Creatinine [Mass/Vol] 1.9 mg/dL High 0.7-1.2 [facility] Comment on above: Performed By: #### B MPX, TSHX, CDP ####[facility] [address] [place] [address] Lab Director: Ramiro Mark MD GFR/1.73 sq M.predicted among non-blacks MDRD (S/P/Bld) [Vol rate/Area] 42 mL/min/{1.73_m2} Low >60 [facility] Comment on above: Result Comment: Thes e results are not intended for use in patients <18 years of age.eGFR results are calculated without a race factor using the 2020 CKD-EPI equation.Careful clinical correlation is recommended, particularly when comparing to results calculated using previous equations.The CKD-EPI equation is less accurate in patients with extremes of muscle mass, extra-renal metabolism of creatine, excessive creatine ingestion, or following therapy that affects renal tubular secretion. Performed By: #### B MPX, TSHX, CDP ####[facility] [address] [place], [place] [address])[phone] Director: Ramiro Mark MD Glucose [Mass/Vol] 170 mg/dL High 74-99 [facility] Comment on above: Performed By: #### B MPX, TSHX, CDP ####[facility] [address] [place], [place] [address])[phone] Director: Ramiro Mark MD Potassium [Moles/Vol] 4.0 mmol/L Normal 3.7-5.3 [facility] Comment on above: Performed By: #### B MPX, TSHX, CDP ####[facility] [address] [place], [place] [address])[phone] Director: Ramiro Mark MD Sodium [Moles/Vol] 135 mmol/L Low 136-145 [facility] Comment on above: Performed By: #### B MPX, TSHX, CDP ####[facility] [address]re[address] [place], [place] [address])[phone] Director: Ramiro Mark MD Urea nitrogen [Mass/Vol] 42 mg/dL High 6-20 [facility] Comment on above: Performed By: #### B MPX, TSHX, CDP ####[facility] [address]74[address] [place], [place] [address])[phone] Director: Ramiro Mark MD Basic Metabolic Panel w/ Ref jose to MGon 10-03-2024 Anion gap [Moles/Vol] 11 mmol/L 9 - 16 mmol/L [facility] Calcium [Mass/Vol] 7.7 mg/dL Low 8.6 - 10. 4 mg/dL [facility] Chloride [Moles/Vol] 104 mmol/L 98 - 10 7 mmol/L [facility] CO2 [Moles/Vol] 20 mmol/L 20 - 31 mmol/L [facility] Creatinine [Mass/Vol] 1.9 mg/dL High 0.7 - 1.2 mg/dL [facility] Est, Glom Filt Rate 42 Low - PINF [facility] Glucose [Mass/Vol] 170 mg/dL High 74 - 99 mg/dL [facility] Interpretation and review of laboratory results Abnormal [facility] Potassium [Moles/Vol] 4.0 mmol/L 3.7 - 5.3 mmol/L [facility] Sodium [Moles/Vol] 135 mmol/L Low 136 - 145 mmol/L [facility] Urea nitrogen [Mass/Vol] 42 mg/dL High 6 - 20 mg/dL [facility] CBC with Auto Differentialon 10-03-2024 Basophils (Bld) [#/Vol] 0.05 10*3/uL [facility] Basophils/100 WBC (Bld) 1 % 0 - 2 % [facility] Eosinophils (Bld) [#/Vol] 0.22 10*3/uL [facility] Eosinophils/100 WBC (Bld) 3 % 1 - 4 % [facility] Erythrocyte distribution width (RBC) [Ratio] 13.0 % 11.8 - 14.4 % [facility] Hematocrit (Bld) [Volume fraction] 26.8 % Low 40.7 - 50.3 % [facility] Hemoglobin (Bld) [Mass/Vol] 8.8 g/dL Low 13.0 - 17.0 g/dL [facility] Immature granulocytes (Bld) [#/Vol] 0.04 10*3/uL [facility] Immature granulocytes/100 WBC (Bld) 1 % High 0 [facility] Interpretation and review of laboratory results Abnormal [facility] Lymphocytes/100 WBC (Bld) 15 % Low 24 - 43 % [facility] Lymphocytes/100 WBC (Bld) 1.24 % [facility] MCH (RBC) [Entitic mass] 28.4 pg 25.2 - 33.5 pg [facility] MCHC (RBC) [Mass/Vol] 32.8 g/dL 28.4 - 34.8 g/dL [facility] MCV (RBC) [Entitic vol] 86.5 fL 82.6 - 102.9 fL [facility] Monocytes/100 WBC (Bld) 8 % 3 - 12 % [facility] Monocytes/100 WBC (Bld) 0.71 % [facility] Neutrophils/100 WBC (Bld) 72 % High 36 - 65 % [facility] Nucleated RBC/100 WBC (Bld) [Ratio] 0.0 % 0.0 per 100 WBC [facility] Platelet mean volume (Bld) [Entitic vol] 10.5 fL 8.1 - 13.5 fL [facility] Platelets (Bld) [#/Vol] 193 10*3/uL [facility] RBC (Bld) [#/Vol] 3.10 10*6/uL Low 4.21 - 5.7 7 m/uL [facility] Segmented neutrophils/100 WBC (Bld) 6.32 % [facility] WBC other (Bld) [#/Vol] 8.6 [facility] CBC with Diffon 10-03-2024 Abs. Basophil 0.05 k/uL Normal 0.00-0.20 [facility] Comment on above: Performed By: #### B MPX, TSHX, CDP ####[facility] Qildegrywevo47[address] [place] [address] Lab Director: Ramiro Mark MD Abs.Imm.Granulocyte 0.04 k/uL Normal 0.00-0.30 [facility] Comment on above: Performed By: #### B MPX, TSHX, CDP ####[facility] [address]hdzbup1499 [place] [address] Lab Director: Ramiro Mark MD Abs.Neutrophil (Seg) 6.32 k/uL Normal 1.50-8.10 [facility] Comment on above: Performed By: #### B MPX, TSHX, CDP ####[facility] Hospital[facility]KS[facility] Kknbxmminzjw1345 [place] [address] Lab Director: Ramiro Mark MD Basophils/100 WBC (Bld) 1 % Normal 0-2 [facility] Comment on above: Performed By: #### B MPX, TSHX, CDP ####[facility] [address] [place] [address] [phone] Director: Ramiro Mark MD Eosinophils (Bld) [#/Vol] 0.22 10*3/uL Normal 0.00-0.44 [facility] Comment on above: Performed By: #### B MPX, TSHX, CDP ####[facility] [address] [place] [address] [id number])[phone] Director: Ramiro Mark MD Eosinophils/100 WBC (Bld) 3 % Normal 1-4 [facility] Comment on above: Performed By: #### B MPX, TSHX, CDP ####[place], [place] [address])[phone] Director: Ramiro Mark MD Erythrocyte distribution width (RBC) [Ratio] 13.0 % Normal 11.8-14.4 [facility] Comment on above: Performed By: #### B MPX, TSHX, CDP ####[facility] [address] [place] [address])[phone] Director: Ramiro Mark MD Hematocrit (Bld) [Volume fraction] 26.8 % Low 40.7-50.3 [facility] Comment on above: Performed By: #### B MPX, TSHX, CDP ####[facility] Mxwkevyrplqj4957 [place], [place] [address])[phone] Director: Ramiro Mark MD Hemoglobin (Bld) [Mass/Vol] 8.8 g/dL Low 13.0-17.0 [facility] Comment on above: Performed By: #### B MPX, TSHX, CDP ####[facility] Pmqkhcrawsup8648 [place], [place] [phone] Director: Ramiro Mark MD Immature granulocytes/100 WBC (Bld) 1 % High 0 [facility] Comment on above: Performed By: #### B MPX, TSHX, CDP ####[facility] [address] [place] [address] [id number])[phone] Director: Ramiro Mark MD Lymphocytes (Bld) [#/Vol] 1.24 10*3/uL Normal 1.10-3.70 [facility] Comment on above: Performed By: #### B MPX, TSHX, CDP ####[facility] [address] [place] [address])[phone] Director: Ramiro Mark MD Lymphocytes/100 WBC (Bld) 15 % Low 24-43 [facility] Comment on above: Performed By: #### B MPX, TSHX, CDP ####[facility] [address] [place], [place] [address])[phone] Director: Ramiro Mark MD MCH (RBC) [Entitic mass] 28.4 pg Normal 25.2-33.5 [facility] Comment on above: Performed By: #### B MPX, TSHX, CDP ####[facility] [address] [place], [place] [phone])[phone] Director: Ramiro Mark MD MCHC (RBC) [Mass/Vol] 32.8 g/dL Normal 28.4-34.8 [facility] Comment on above: Performed By: #### B MPX, TSHX, CDP ####[facility] X[address]uh[address]vmuv[address] [place], [place] [id number])[phone] Director: Ramiro Mark MD MCV (RBC) [Entitic vol] 86.5 fL Normal 82.6-102.9 [facility] Comment on above: Performed By: #### B MPX, TSHX, CDP ####[facility] Sqbhbllmxevt5[address] [place], [place] [phone])[phone] Director: Ramiro Mark MD Monocytes (Bld) [#/Vol] 0.71 10*3/uL Normal 0.10-1.20 [facility] Comment on above: Performed By: #### B MPX, TSHX, CDP ####[facility] Opsjcv[address]uyxx1819 [place] [address] Lab Director: Ramiro Mark MD Monocytes/100 WBC (Bld) 8 % Normal 3-12 [facility] Comment on above: Performed By: #### B MPX, TSHX, CDP ####[facility] [address] [place] [address] Lab Director: Ramiro Mark MD Neutrophil (Seg) 72 % High 36-65 [facility] Comment on above: Performed By: #### B MPX, TSHX, CDP ####[address] [phone])[phone] Director: Ramiro Mark MD NRBC Automated 0.0 per 100 WBC Normal 0.0 [facility] Comment on above: Performed By: #### B MPX, TSHX, CDP ####[facility] [address] [place] [address] Lab Director: Ramiro Mark MD Platelet mean volume (Bld) [Entitic vol] 10.5 fL Normal 8.1-13.5 [facility] Comment on above: Performed By: #### B MPX, TSHX, CDP ####[facility] Fq[address]jo[address]ue4538 [place] [address] Lab Director: Ramiro Mark MD Platelets (Bld) [#/Vol] 193 10*3/uL Normal 138-453 [facility] Comment on above: Performed By: #### B MPX, TSHX, CDP ####[facility] Oxz[address]ws[address]8334 [place] [address] Lab Director: Ramiro Mark MD RBC (Bld) [#/Vol] 3.10 10*6/uL Low 4.21-5.77 [facility] Comment on above: Performed By: #### B MPX, TSHX, CDP ####[facility] Blbibvslxaip7156 [place], [place] [id number] lab Director: Ramiro Mark MD WBC (Bld) [#/Vol] 8.6 10*3/uL Normal 3.5-11.3 [facility] Comment on above: Performed By: #### B MPX, TSHX, CDP ####[facility] [address]fs[address] [place] [address] lab Director: Ramiro Mark MD Cult, Bloodon 10-03-2024 Cult, Blood Specimen Description .BLOOD Special Requests 20ML RIGHT WRIST Culture NO GROWTH 5 DAYS Report Status FINAL 10/03/2024 Normal [facility] Comment on above: Performed By: #### L ACTIC #### [facility] [address] [place] [address] B[employer] Machine Tender Starch Spraying: Ramiro Santillan MD Glucose,Whole Bloodon 2023 Glucose [Mass/Vol] 190 mg/dL High 75-110 [facility] Glucose [Mass/Vol] 163 mg/dL High 75-110 [facility] Glucose [Mass/Vol] 88 mg/dL Normal 75-110 [facility] Glucose [Mass/Vol] 133 mg/dL High 75-110 [facility] No Panel Informationon 10-03 [place] Nuclear stress test with marcio cardial perfusionOrdered By: Ludmila Rushing on 10-03-2024 Baseline Diastolic BP 110 mmHg [email or web address] Phone: Baseline HR 76 BPM [email or web address] Phone: Baseline Systolic BP 183 mmHg [email or web address] Phone: Body surface area Derived from formula 2 m2 [email or web address] Phone: Stress Diastolic BP 110 mmHg [email or web address] Phone: Stress Estimated Workload 1.0 METS Sharon [employer] Work Phone: Stress Peak HR 83 BPM Sharon Bernabe s [employer] Work Phone: Stress Percent HR Achieved 49 % Sharon Gallego [employer] Work Phone: Stress Rate Pressure Product 66694 BPM*mmHg Sharon [employer] Work Phone: Stress Systolic BP 183 mmHg Sharon Se cours [employer] Work Phone: Stress Target HR 170 bpm Sharon Venturao urs [employer] Work Phone: Sharon [facility] Work Phone: Nuclear stress test with marcio cardial perfusionon 10-03-2024 [facility] CV RPACS STRESS [facility] CV RPACS STRESS Radiology Study observation (narrative) [place] POC Glucose Fingerstickon Glucose [Mass/Vol] 190 mg/dL High 75 - 110 mg/dL [facility] Interpretation and review of laboratory results Abnormal [facility] [employer] [facility] Glucose [Mass/Vol] 163 mg/dL High 75 - 110 mg/dL [facility] Interpretation and review of laboratory results Abnormal [facility] [employer] [facility] Glucose [Mass/Vol] 88 mg/dL 75 - 110 mg/dL [facility] Glucose [Mass/Vol] 133 mg/dL High 75 - 110 mg/dL [facility] Interpretation and review of laboratory results Abnormal [facility] [employer] [facility] T. PALLIDUM ABon 10-03-2024 T. pallidum Ab IA Ql (S) Non-Reactive NONREACTIVE [facility] [employer] T.pallidum Ab Screenon 10-03 T.pallidum Ab Screen Non-Reactive Normal NR Me [facility] Comment on above: Result Comment: T. p allidum antibodies are not detected.There is no serological evidence of infection with T. pallidum (early primary syphilis cannot be excluded). Retest in 2-4 weeks if syphilis is clinically suspect. Performed By: #### B 12FOL, TREP ####[facility] [address]hlm[address] [place], [place] [id number] lab Director: Ramiro Mark MD#### AVITB1 ####[facility] [address] [place], [place] [id number] lab Director: Wil Swanson MD TSH reflex to FT4on 10-03-20 TSH Qn 1.19 m[IU]/L [facility] TSH w/reflex to FT4on 2023 Thyroid Stim. Horm. 1.19 uIU/mL Normal 0.27-4.20 [facility] Comment on above: Performed By: #### B MPX, TSHX, CDP ####[facility] [address] [place] [address] lab Director: Ramiro Mark MD Vitamin B12 & Folateon 10-031 Cobalamin (Vitamin B12) [Mass/Vol] 791 pg/mL 232 - 1245 pg/mL [facility] Folate [Mass/Vol] 11.5 ng/mL 4.8 - 24.2 ng/mL [facility] CLAUDIO Screen w/reflexon 2023 CLAUDIO Screen Negative Normal NEG [facility] Comment on above: Performed By: #### P HEP, BMP, ANAX, PE, FKLLC, CHELO, MG ####[facility] [address] [place] [address] [phone] lab Director: Ramiro Mark MD Anti-dsDNA 0.6 IU/mL Normal <10.0 [facility] Comment on above: Result Comment: Refe rence Range:<10.0 Elldbrpi49.0-15.0 Equivocal>15.0 Positive Performed By: #### P HEP, BMP, ANAX, PE, FKLLC, CHELO, MG ####[facility] [address] [place] [address] [id number] Lab Director: Ramiro Mark MD KIM Screen 0.2 U/mL Normal <0.7 [facility] Comment on above: Result Comment: Refe rence Range:<0.7 Negative0.7-1.0 Equivocal>1.0 PositiveENA Screen includes U1RNP,RNP70,Sm,Ro(SS-A),La(SS-B),CENP,Scl-70,Debbi-1 Performed By: #### P HEP, BMP, ANAX, PE, FKLLC, CHELO, MG ####[facility] [address] [place] [address] lab Director: Ramiro Mark MD CLAUDIO Screen with Reflexon DNA double strand IgG IA Ql (S) 0.6 NINF [facility] Nuclear Ab IA Ql (S) Negative NEGATIVE [facility] Nuclear IgG IA (S) [Ratio] 0.2 U/mL NINF - 0.7 U/mL [facility] Basic Metab w/rfx MGon 10-020 Anion gap [Moles/Vol] 9 mmol/L Normal 9-16 [facility] Comment on above: Performed By: #### B MPX, CDP ####[facility] [address]fly[address] [place] [address] Lab Director: Ramiro Mark MD Calcium [Mass/Vol] 8.0 mg/dL Low 8.6-10.4 [facility] Comment on above: Performed By: #### B MPX, CDP ####[facility] Hospital[facility] [address] [place] [address] Lab Director: Ramiro Mark MD Chloride [Moles/Vol] 110 mmol/L High 98-107 [facility] Comment on above: Performed By: #### B MPX, CDP ####[facility] Hospital[facility]OO[facility] [address]8785 [place] [address] Lab Director: Ramiro Mark MD CO2 [Moles/Vol] 22 mmol/L Normal 20-31 [facility] Comment on above: Performed By: #### B MPX, CDP ####[facility] [address]99 [place] [address] Lab Director: Ramiro Mark MD Creatinine [Mass/Vol] 2.1 mg/dL High 0.7-1.2 [facility] Comment on above: Performed By: #### B MPX, CDP ####[facility] [address] [place] [address] [phone])[phone] Director: Ramiro Mark MD GFR/1.73 sq M.predicted among non-blacks MDRD (S/P/Bld) [Vol rate/Area] 38 mL/min/{1.73_m2} Low >60 [facility] Comment on above: Result Comment: Thes e results are not intended for use in patients <18 years of age.eGFR results are calculated without a race factor using the 2020 CKD-EPI equation.Careful clinical correlation is recommended, particularly when comparing to results calculated using previous equations.The CKD-EPI equation is less accurate in patients with extremes of muscle mass, extra-renal metabolism of creatine, excessive creatine ingestion, or following therapy that affects renal tubular secretion. Performed By: #### B MPX, CDP ####[facility] [address] [place] [address] [phone] Director: Ramiro Mark MD Glucose [Mass/Vol] 80 mg/dL Normal 74-99 [facility] Comment on above: Performed By: #### B MPX, CDP ####[facility] [address] [place], [place] [phone])[phone] Director: Ramiro Mark MD Potassium [Moles/Vol] 3.8 mmol/L Normal 3.7-5.3 [facility] Comment on above: Performed By: #### B MPX, CDP ####[facility] [address] [place], [place] [phone] Director: Ramiro Mark MD Sodium [Moles/Vol] 141 mmol/L Normal 136-145 [facility] Comment on above: Performed By: #### B MPX, CDP ####[facility] [address] [place], [place] [phone] lab Director: Ramiro Mark MD Urea nitrogen [Mass/Vol] 41 mg/dL High 6-20 [facility] Comment on above: Performed By: #### B MPX, CDP ####[facility] [address] [place], [place] [id number] lab Director: Ramiro Mark MD Basic Metabolic Panel w/ Ref jose to MGon 10-02-2024 Anion gap [Moles/Vol] 9 mmol/L 9 - 16 mmol/L [facility] Calcium [Mass/Vol] 8.0 mg/dL Low 8.6 - 10. 4 mg/dL [facility] Chloride [Moles/Vol] 110 mmol/L High 98 - 10 7 mmol/L [facility] CO2 [Moles/Vol] 22 mmol/L 20 - 31 mmol/L [facility] Creatinine [Mass/Vol] 2.1 mg/dL High 0.7 - 1.2 mg/dL [facility] Est, Glom Filt Rate 38 Low - PINF [facility] Glucose [Mass/Vol] 80 mg/dL 74 - 99 mg/dL [facility] Interpretation and review of laboratory results Abnormal [facility] Potassium [Moles/Vol] 3.8 mmol/L 3.7 - 5.3 mmol/L [facility] Sodium [Moles/Vol] 141 mmol/L 136 - 145 mmol/L [facility] Urea nitrogen [Mass/Vol] 41 mg/dL High 6 - 20 mg/dL [facility] CBC with Auto Differentialon 10-02-2024 Basophils (Bld) [#/Vol] [facility] Basophils/100 WBC (Bld) 0 % 0 - 2 % [facility] Eosinophils (Bld) [#/Vol] 0.12 10*3/uL [facility] Eosinophils/100 WBC (Bld) 2 % 1 - 4 % [facility] Erythrocyte distribution width (RBC) [Ratio] 13.4 % 11.8 - 14.4 % [facility] Hematocrit (Bld) [Volume fraction] 25.8 % Low 40.7 - 50.3 % [facility] Hemoglobin (Bld) [Mass/Vol] 8.4 g/dL Low 13.0 - 17.0 g/dL [facility] Immature granulocytes (Bld) [#/Vol] 0.03 10*3/uL [facility] Immature granulocytes/100 WBC (Bld) 0 % 0 [facility] Interpretation and review of laboratory results Abnormal [facility] Lymphocytes/100 WBC (Bld) 10 % Low 24 - 43 % [facility] Lymphocytes/100 WBC (Bld) 0.79 % Low [facility] MCH (RBC) [Entitic mass] 28.6 pg 25.2 - 33.5 pg [facility] MCHC (RBC) [Mass/Vol] 32.6 g/dL 28.4 - 34.8 g/dL [facility] MCV (RBC) [Entitic vol] 87.8 fL 82.6 - 102.9 fL [facility] Monocytes/100 WBC (Bld) 9 % 3 - 12 % [facility] Monocytes/100 WBC (Bld) 0.70 % [facility] Neutrophils/100 WBC (Bld) 79 % High 36 - 65 % [facility] Nucleated RBC/100 WBC (Bld) [Ratio] 0.0 % 0.0 per 100 WBC [facility] Platelet mean volume (Bld) [Entitic vol] 10.6 fL 8.1 - 13.5 fL [facility] Platelets (Bld) [#/Vol] 180 10*3/uL [facility] RBC (Bld) [#/Vol] 2.94 10*6/uL Low 4.21 - 5.7 7 m/uL [facility] Segmented neutrophils/100 WBC (Bld) 6.31 % [facility] WBC other (Bld) [#/Vol] 8.0 [facility] with Diffon 10-02-2024 Abs. Basophil <0.03 Normal 0.00-0.20 [facility] Comment on above: Performed By: #### B MPX, CDP ####[facility] [address] [place], [place] [address])[phone] Director: Ramiro Mark MD Abs.Imm.Granulocyte 0.03 k/uL Normal 0.00-0.30 [facility] Comment on above: Performed By: #### B MPX, CDP ####[facility] [address] [place], [place] [address])[phone] Director: Ramiro Mark MD Abs.Neutrophil (Seg) 6.31 k/uL Normal 1.50-8.10 [facility] Comment on above: Performed By: #### B MPX, CDP ####[facility] [address] [place] [address])[phone] Director: Ramiro Mark MD Basophils/100 WBC (Bld) 0 % Normal 0-2 [facility] Comment on above: Performed By: #### B MPX, CDP ####[facility] [address] [place] [address])[phone] Director: Ramiro Mark MD Eosinophils (Bld) [#/Vol] 0.12 10*3/uL Normal 0.00-0.44 [facility] Comment on above: Performed By: #### B MPX, CDP ####[facility] [address] [place], [place] [address])[phone] Director: Ramiro Mark MD Eosinophils/100 WBC (Bld) 2 % Normal 1-4 [facility] Comment on above: Performed By: #### B MPX, CDP ####[facility] [address] [place], [place] [address])[phone] Director: Ramiro Mark MD Erythrocyte distribution width (RBC) [Ratio] 13.4 % Normal 11.8-14.4 [facility] Comment on above: Performed By: #### B MPX, CDP ####[place], [place] [address])[phone] Director: Ramiro Mark MD Hematocrit (Bld) [Volume fraction] 25.8 % Low 40.7-50.3 [facility] Comment on above: Performed By: #### B MPX, CDP ####[place], [place] [address])[phone] Director: Ramiro Mark MD Hemoglobin (Bld) [Mass/Vol] 8.4 g/dL Low 13.0-17.0 [facility] Comment on above: Performed By: #### B MPX, CDP ####[place], [place] [address])[phone] Director: Ramiro Mark MD Immature granulocytes/100 WBC (Bld) 0 % Normal 0 [facility] Comment on above: Performed By: #### B MPX, CDP ####[address] [address])[phone] Director: Ramiro Mark MD Lymphocytes (Bld) [#/Vol] 0.79 10*3/uL Low 1.10-3.70 [facility] Comment on above: Performed By: #### B MPX, CDP ####[address] [address])[phone] Director: Ramiro Mark MD Lymphocytes/100 WBC (Bld) 10 % Low 24-43 [facility] Comment on above: Performed By: #### B MPX, CDP ####[address] [address])[phone] Director: Ramiro Mark MD MCH (RBC) [Entitic mass] 28.6 pg Normal 25.2-33.5 [facility] Comment on above: Performed By: #### B MPX, CDP ####[facility] [address] [place], [place] [phone])[phone] Director: Ramiro Mark MD MCHC (RBC) [Mass/Vol] 32.6 g/dL Normal 28.4-34.8 [facility] Comment on above: Performed By: #### B MPX, CDP ####[facility] [address]ot[address]94 [place], [place] [id number])[phone] Director: Ramiro Mark MD MCV (RBC) [Entitic vol] 87.8 fL Normal 82.6-102.9 [facility] Comment on above: Performed By: #### B MPX, CDP ####[facility] [address] [place], [place] [phone])[phone] Director: Ramiro Mark MD Monocytes (Bld) [#/Vol] 0.70 10*3/uL Normal 0.10-1.20 [facility] Comment on above: Performed By: #### B MPX, CDP ####[facility] [address] [place] [address] [id number])[phone] Director: Ramiro Mark MD Monocytes/100 WBC (Bld) 9 % Normal 3-12 [facility] Comment on above: Performed By: #### B MPX, CDP ####[facility] [address] [place] [address] [id number])[phone] Director: Ramiro Mark MD Neutrophil (Seg) 79 % High 36-65 [facility] Comment on above: Performed By: #### B MPX, CDP ####[facility] [address] [place], [place] [id number])[phone] Director: Ramiro Mark MD NRBC Automated 0.0 per 100 WBC Normal 0.0 [facility] Comment on above: Performed By: #### B MPX, CDP ####[facility] [address]ccdfjh8141 [place], [place] [phone] Lab Director: Ramiro Mark MD Platelet mean volume (Bld) [Entitic vol] 10.6 fL Normal 8.1-13.5 [facility] Comment on above: Performed By: #### B MPX, CDP ####[facility] [address] [place] [address] Lab Director: Ramiro Mark MD Platelets (Bld) [#/Vol] 180 10*3/uL Normal 138-453 [facility] Comment on above: Performed By: #### B MPX, CDP ####[facility] [address] [place] [address] Lab Director: Ramiro Mark MD RBC (Bld) [#/Vol] 2.94 10*6/uL Low 4.21-5.77 [facility] Comment on above: Performed By: #### B MPX, CDP ####[facility] [address]fyydhb6997 [place] [address] Lab Director: Ramiro Mark MD WBC (Bld) [#/Vol] 8.0 10*3/uL Normal 3.5-11.3 [facility] Comment on above: Performed By: #### B MPX, CDP ####[facility] [address]32 [place] [address] Lab Director: Ramiro Mark MD Glucose,Whole Bloodon 2023 Glucose [Mass/Vol] 224 mg/dL High 75-110 [facility] Glucose [Mass/Vol] 219 mg/dL High 75-110 [facility] Glucose [Mass/Vol] 211 mg/dL High 75-110 [facility] Glucose [Mass/Vol] 175 mg/dL High 75-110 [facility] Glucose [Mass/Vol] 81 mg/dL Normal 75-110 [facility] POC Glucose Fingerstickon Glucose [Mass/Vol] 224 mg/dL High 75 - 110 mg/dL [facility] Interpretation and review of laboratory results Abnormal [facility] Glucose [Mass/Vol] 219 mg/dL High 75 - 110 mg/dL [facility] Interpretation and review of laboratory results Abnormal [facility] Glucose [Mass/Vol] 211 mg/dL High 75 - 110 mg/dL [facility] Interpretation and review of laboratory results Abnormal [facility] Glucose [Mass/Vol] 175 mg/dL High 75 - 110 mg/dL [facility] Interpretation and review of laboratory results Abnormal [facility] Glucose [Mass/Vol] 81 mg/dL 75 - 110 mg/dL [facility] Prot. Electrophoresis, Uron 10-02-2024 Pathologist Review: ELECTRONICALLY ALEX LACY M.D. Normal [facility] Comment on above: Performed By: #### U PE, URTPRT, URNA, URCL ####[facility] [address] [place], [place] [id number] Lab Director: Ramiro Mark MD Ur.-Prot.Elect-Inter Elevated protein concentration. Most serum proteins are detected in Normal [facility] Comment on above: Result Comment: this urine. Usually observed with markedly increased nonselectiveglomerular permaeabilty (severe glomerular disease) and/orcontamination of urine with blood. A decrease in tubular functioncannot be ruled out. Performed By: #### U PE, URTPRT, URNA, URCL ####[facility] [address] [place], [place] [id number] Lab Director: Ramiro Mark MD Protein Electrophoresis, Uri neon 10-02-2024 P E Interpretation, U Elevated protein concentration. Most serum proteins are detected in [facility] Pathologist ELECTRONICALLY ALEX LACY M.D. [facility] Protein (U) [Mass/Vol] 100 mg/dL [facility] Specimen type Nom (Spec) .URINE [facility] Arterial Bld Gas,POCon 10-01 FIO2 30.0 Normal [facility] HCO3 (Bld) [Moles/Vol] 25.1 mmol/L Normal 21.0-28.[address] [facility] O2 Device Adult Ventilator Normal [facility] Oxygen saturation in Blood 99.4 % High 94.0-98.0 [facility] pCO2, Arterial 33.7 mm Hg Low 35.0-48.0 [facility] pH, Arterial 7.480 High 7.350-7.450 [facility] pO2, Arterial 143.0 mm Hg High 83.0-108.0 [facility] Positive Base Excess (calc) 1.5 mmol/L Normal 0.0-3.0 [facility] Site Drawn Right Radial Artery Normal [facility] Arterial Blood Gas, POCon FIO2 30.0 [facility] HCO3 (Bld) [Moles/Vol] 25.1 mmol/L 21.0 - 28.0 mmol/L [facility] O2 Delivery Device Adult Ventilator [facility] Oxygen saturation in Blood 99.4 % High 94.0 - 98.0 % [facility] POC pCO2 33.7 Low [facility] POC pH 7.480 High 7.350 - 7.450 [facility] POC PO2 143.0 High [facility] Positive Base Excess, Art 1.5 mmol/L 0.0 - 3.0 mmol/L [facility] Sample Site Right Radial Artery [facility] Basic Metab w/rfx MGon 10-01 Anion gap [Moles/Vol] 8 mmol/L Low 9-16 [facility] Comment on above: Performed By: #### B MPX, LIPR, CDP ####[facility] [address] [place] [address] [facility] Director: Ramiro Mark MD Calcium [Mass/Vol] 8.1 mg/dL Low 8.6-10.4 [facility] Comment on above: Performed By: #### B MPX, LIPR, CDP ####[facility] [address] [place] [address] Lab Director: Ramiro Mark MD Chloride [Moles/Vol] 108 mmol/L High 98-107 [facility] Comment on above: Performed By: #### B MPX, LIPR, CDP ####[facility] [address] [place], [place] [phone] Director: Ramiro Mark MD CO2 [Moles/Vol] 23 mmol/L Normal 20-31 [facility] Comment on above: Performed By: #### B MPX, LIPR, CDP ####[facility] [address] [place], [place] [phone] Director: Ramiro Mark MD Creatinine [Mass/Vol] 2.3 mg/dL High 0.7-1.2 [facility] Comment on above: Performed By: #### B MPX, LIPR, CDP ####[facility] [address]uds[address] [place] [address] Lab Director: Ramiro Mark MD GFR/1.73 sq M.predicted among non-blacks MDRD (S/P/Bld) [Vol rate/Area] 34 mL/min/{1.73_m2} Low >60 [facility] Comment on above: Result Comment: Thes e results are not intended for use in patients <18 years of age.eGFR results are calculated without a race factor using the 2020 CKD-EPI equation.Careful clinical correlation is recommended, particularly when comparing to results calculated using previous equations.The CKD-EPI equation is less accurate in patients with extremes of muscle mass, extra-renal metabolism of creatine, excessive creatine ingestion, or following therapy that affects renal tubular secretion. Performed By: #### B MPX, LIPR, CDP ####[facility] [address] [place] [address] Lab Director: Ramiro Mark MD Glucose [Mass/Vol] 180 mg/dL High 74-99 [facility] Comment on above: Performed By: #### B MPX, LIPR, CDP ####[facility] [address]zmwu4032 [place] [address] Lab Director: Ramiro Mark MD Potassium [Moles/Vol] 4.0 mmol/L Normal 3.7-5.3 [facility] Comment on above: Performed By: #### B MPX, LIPR, CDP ####[facility] [address]vpqflqrg1276 [place] [address] Lab Director: Ramiro Mark MD Sodium [Moles/Vol] 139 mmol/L Normal 136-145 [facility] Comment on above: Performed By: #### B MPX, LIPR, CDP ####[facility] T[address]xxeqrsu5343 [place] [address] Lab Director: Ramiro Mark MD Urea nitrogen [Mass/Vol] 46 mg/dL High 6-20 [facility] Comment on above: Performed By: #### B MPX, LIPR, CDP ####[facility] [address]zzpkvxtbiu1632 [place] [address] Lab Director: Ramiro Mark MD Basic Metabolic Panel w/ Ref jose to MGon 10-01-2024 Anion gap [Moles/Vol] 8 mmol/L Low 9 - 16 mmol/L [facility] Calcium [Mass/Vol] 8.1 mg/dL Low 8.6 - 10. 4 mg/dL [facility] Chloride [Moles/Vol] 108 mmol/L High 98 - 10 7 mmol/L [facility] CO2 [Moles/Vol] 23 mmol/L 20 - 31 mmol/L [facility] Creatinine [Mass/Vol] 2.3 mg/dL High 0.7 - 1.2 mg/dL [facility] Est, Glom Filt Rate 34 Low - PINF [facility] Glucose [Mass/Vol] 180 mg/dL High 74 - 99 mg/dL [facility] Interpretation and review of laboratory results Abnormal [facility] Potassium [Moles/Vol] 4.0 mmol/L 3.7 - 5.3 mmol/L [facility] Sodium [Moles/Vol] 139 mmol/L 136 - 145 mmol/L [facility] Urea nitrogen [Mass/Vol] 46 mg/dL High 6 - 20 mg/dL [facility] CBC with Auto Differentialon 10-01-2024 Basophils (Bld) [#/Vol] 0.03 10*3/uL [facility] Basophils/100 WBC (Bld) 0 % 0 - 2 % [facility] Eosinophils (Bld) [#/Vol] 0.15 10*3/uL [facility] Eosinophils/100 WBC (Bld) 2 % 1 - 4 % [facility] Erythrocyte distribution width (RBC) [Ratio] 13.3 % 11.8 - 14.4 % [facility] Hematocrit (Bld) [Volume fraction] 26.0 % Low 40.7 - 50.3 % [facility] Hemoglobin (Bld) [Mass/Vol] 8.3 g/dL Low 13.0 - 17.0 g/dL [facility] Immature granulocytes (Bld) [#/Vol] 0.03 10*3/uL [facility] Immature granulocytes/100 WBC (Bld) 0 % 0 [facility] Interpretation and review of laboratory results Abnormal [facility] Lymphocytes/100 WBC (Bld) 16 % Low 24 - 43 % [facility] Lymphocytes/100 WBC (Bld) 1.14 % [facility] MCH (RBC) [Entitic mass] 28.7 pg 25.2 - 33.5 pg [facility] MCHC (RBC) [Mass/Vol] 31.9 g/dL 28.4 - 34.8 g/dL [facility] MCV (RBC) [Entitic vol] 90.0 fL 82.6 - 102.9 fL [facility] Monocytes/100 WBC (Bld) 8 % 3 - 12 % [facility] Monocytes/100 WBC (Bld) 0.58 % [facility] Neutrophils/100 WBC (Bld) 74 % High 36 - 65 % [facility] Nucleated RBC/100 WBC (Bld) [Ratio] 0.0 % 0.0 per 100 WBC [facility] Platelet mean volume (Bld) [Entitic vol] 10.9 fL 8.1 - 13.5 fL [facility] Platelets (Bld) [#/Vol] 180 10*3/uL [facility] RBC (Bld) [#/Vol] 2.89 10*6/uL Low 4.21 - 5.7 7 m/uL [facility] Segmented neutrophils/100 WBC (Bld) 5.40 % [facility] WBC other (Bld) [#/Vol] 7.3 [facility] CBC with Diffon 10-01-2024 Abs. Basophil 0.03 k/uL Normal 0.00-0.20 [facility] Comment on above: Performed By: #### B MPX, LIPR, CDP ####[facility] [address] [place], [place] [address])[phone] Director: Ramiro Mark MD Abs.Imm.Granulocyte 0.03 k/uL Normal 0.00-0.30 [facility] Comment on above: Performed By: #### B MPX, LIPR, CDP ####[facility] [address] [place] [address] Lab Director: Ramiro Mark MD Abs.Neutrophil (Seg) 5.40 k/uL Normal 1.50-8.10 [facility] Comment on above: Performed By: #### B MPX, LIPR, CDP ####[facility] [address] [place] [address] Lab Director: Ramiro Mark MD Basophils/100 WBC (Bld) 0 % Normal 0-2 [facility] Comment on above: Performed By: #### B MPX, LIPR, CDP ####[facility] [address] [place], [place] [address])[phone] Director: Ramiro Mark MD Eosinophils (Bld) [#/Vol] 0.15 10*3/uL Normal 0.00-0.44 [facility] Comment on above: Performed By: #### B MPX, LIPR, CDP ####[facility] [address] [place] [address] [phone] Director: Ramiro Mark MD Eosinophils/100 WBC (Bld) 2 % Normal 1-4 [facility] Comment on above: Performed By: #### B MPX, LIPR, CDP ####[facility] [address] [place] [address])[phone] Director: Ramiro Mark MD Erythrocyte distribution width (RBC) [Ratio] 13.3 % Normal 11.8-14.4 [facility] Comment on above: Performed By: #### B MPX, LIPR, CDP ####[facility] [address]mp[address] [place], [place] [address])[phone] Director: Ramiro Mark MD Hematocrit (Bld) [Volume fraction] 26.0 % Low 40.7-50.3 [facility] Comment on above: Performed By: #### B MPX, LIPR, CDP ####[facility] [address] [place] [address])[phone] Director: Ramiro Mark MD Hemoglobin (Bld) [Mass/Vol] 8.3 g/dL Low 13.0-17.0 [facility] Comment on above: Performed By: #### B MPX, LIPR, CDP ####[facility] [address] [place], [place] [id number])[phone] Director: Ramiro Mark MD Immature granulocytes/100 WBC (Bld) 0 % Normal 0 [facility] Comment on above: Performed By: #### B MPX, LIPR, CDP ####[facility] [address] [place] [address])[phone] Director: Ramiro Mark MD Lymphocytes (Bld) [#/Vol] 1.14 10*3/uL Normal 1.10-3.70 [facility] Comment on above: Performed By: #### B MPX, LIPR, CDP ####[facility] [address] [place] [address] [phone] Director: Ramiro Mark MD Lymphocytes/100 WBC (Bld) 16 % Low 24-43 [facility] Comment on above: Performed By: #### B MPX, LIPR, CDP ####[facility] [address] [place] [address] 59[address])[phone] Director: Ramiro Mark MD MCH (RBC) [Entitic mass] 28.7 pg Normal 25.2-33.5 [facility] Comment on above: Performed By: #### B MPX, LIPR, CDP ####[facility] [address] [place], [place] [address])[phone] Director: Ramiro Mark MD MCHC (RBC) [Mass/Vol] 31.9 g/dL Normal 28.4-34.8 [facility] Comment on above: Performed By: #### B MPX, LIPR, CDP ####[facility] [address] [place] [address] [phone] Director: Ramiro Mark MD MCV (RBC) [Entitic vol] 90.0 fL Normal 82.6-102.9 [facility] Comment on above: Performed By: #### B MPX, LIPR, CDP ####[facility] [address] [place], [place] [phone] Director: Ramiro Mark MD Monocytes (Bld) [#/Vol] 0.58 10*3/uL Normal 0.10-1.20 [facility] Comment on above: Performed By: #### B MPX, LIPR, CDP ####[facility] [address] [place], [place] [phone] Director: Ramiro Mark MD Monocytes/100 WBC (Bld) 8 % Normal 3-12 [facility] Comment on above: Performed By: #### B MPX, LIPR, CDP ####[facility] [address]jrqpjq5341 [place] [address] Lab Director: Ramiro Mark MD Neutrophil (Seg) 74 % High 36-65 [facility] Comment on above: Performed By: #### B MPX, LIPR, CDP ####[facility] [address]hswpsx4[address] [place] [address] Lab Director: Ramiro Mark MD NRBC Automated 0.0 per 100 WBC Normal 0.0 [facility] Comment on above: Performed By: #### B MPX, LIPR, CDP ####[facility] [address] [place] [address] Lab Director: Ramiro Mark MD Platelet mean volume (Bld) [Entitic vol] 10.9 fL Normal 8.1-13.5 [facility] Comment on above: Performed By: #### B MPX, LIPR, CDP ####[facility] [address]jgc2056 [place] [address] Lab Director: Ramiro Mark MD Platelets (Bld) [#/Vol] 180 10*3/uL Normal 138-453 [facility] Comment on above: Performed By: #### B MPX, LIPR, CDP ####[facility] [address] [place] [address] Lab Director: Ramiro Mark MD RBC (Bld) [#/Vol] 2.89 10*6/uL Low 4.21-5.77 [facility] Comment on above: Performed By: #### B MPX, LIPR, CDP ####[facility] [address] [place] [address] Lab Director: Ramiro Mark MD WBC (Bld) [#/Vol] 7.3 10*3/uL Normal 3.5-11.3 [facility] Comment on above: Performed By: #### B MPX, LIPR, CDP ####[facility] [address] [place], [place] [phone] Lab Director: Ramiro Mark MD Calcium, Ionicon 10-01-2024 Calcium [Moles/Vol] 1.13 mmol/L Normal 1.13-1.33 [facility] Comment on above: Performed By: #### I OCAL ####[facility] [address] [place], [place] [phone] Lab Director: Ramiro Mark MD Calcium, Ionizedon Calcium.ionized (Bld) [Moles/Vol] 1.13 mmol/L 1.13 - 1.33 mmol/L [facility] Cult,Bloodon 10-01-2024 Cult,Blood Specimen Description .BLOOD Special Requests 20ml rac Culture POSITIVE Blood Culture DIRECT GRAM STAIN FROM BOTTLE: GRAM POSITIVE COCCI AND GPCB Streptococcus species (not S. agalactiae (Group B), S. pneumoniae, or S. pyogenes (Group A)) Methodology- Polymerase Chain Reaction (PCR) Detected: Coagulase negative Staphylococcus species (not S.epidermidis, or S. lugdunensis) Methodology- Polymerase Chain Reaction (PCR) ENTEROCOCCUS AVIUM Identification by MALDI-TOF STAPHYLOCOCCUS SPECIES, COAGULASE NEGATIVE A single positive blood culture of coagulase negative Staphylocci, diphtheroids,micrococci , Cutibacterium, viridans Streptocci, Bacillus, or Lactobacillus species should be interpreted with caution and viewed as a likely skin contaminant. VIRIDANS STREPTOCOCCUS GROUP A single positive blood culture of coagulase negative Staphylocci, diphtheroids,micrococci , Cutibacterium, viridans Streptocci, Bacillus, or Lactobacillus species should be interpreted with caution and viewed as a likely skin contaminant. (NOTE) Direct Gram Stain from bottle result called to and read back by:YECENIA JOHNSON RN, [facility], 09/29/24 0745, RB CLARKR Report Status FINAL 10/20/2024 SUSCEPTIBILITY Organism ENTEROCOCCUS AVIUM Method MARINE Ampicillin <=2 SUSCEPTIBLE Gentamicin,High Level SUSCEPTIBLE Streptomycin,Hi Level SUSCEPTIBLE Vancomycin <=0.5 SUSCEPTIBLE Susceptible [facility] Comment on above: Performed By: #### L ACTIC #### [facility] [address] [place] [address] Blow Machine Tender Starch Spraying: Ramiro Santillan MD Electrophoresis Protein, Ser on 10-01-2024 Albumin % 55 % 45 - 65 % [facility] Albumin [Mass/Vol] 2.3 g/dL Low 3.2 - 5.2 g/dL [facility] Alpha 1 globulin Elph [Mass/Vol] 0.2 g/dL 0.1 - 0.4 g/dL [facility] Alpha 1 globulin Elph [Mass/Vol] 5 % 3 - 6 % [facility] Alpha 2 % 15 % High 6 - 13 % [facility] Alpha 2 globulin Elph [Mass/Vol] 0.6 g/dL 0.5 - 0.9 g/dL [facility] Beta globulin Elph [Mass/Vol] 0.6 g/dL 0.5 - 1.1 g/dL [facility] Beta globulin Elph [Mass/Vol] 13 % 11 - 19 % [facility] Gamma Globulin % 12 % 9 - 20 % [facility] Gamma globulin Elph [Mass/Vol] 0.5 g/dL 0.5 - 1.5 g/dL [facility] Interpretation and review of laboratory results Abnormal [facility] Pathologist Cyto stain Nom (Cvx/Vag) [ID] ELECTRONICALLY SIGNED. DARLEEN LACY M.D. [facility] Protein [Mass/Vol] 4.2 g/dL Low 6.6 - 8.7 g/dL [facility] Protein Fractions [Interp] Albumin is decreased. May be observed with hepatic diseases, proteinuria, malnutrition, acute phase response, and hemodilution. Gammaglobulins are low normal. [facility] Total Prot. Sum 4.2 g/dL Low 6.3 - 8.2 g/dL [facility] Total Prot. Sum,% 100 % 98 - 102 % [facility] Glucose (POC)on 10-01-2024 Glucose [Mass/Vol] 180 mg/dL High 74-100 [facility] Glucose,Whole Bloodon 2023 Glucose [Mass/Vol] 126 mg/dL High 75-110 [facility] Glucose [Mass/Vol] 129 mg/dL High 75-110 [facility] Glucose [Mass/Vol] 125 mg/dL High 75-110 [facility] Glucose [Mass/Vol] 142 mg/dL High 75-110 [facility] Glucose [Mass/Vol] 548 mg/dL Critically high 75-110 [facility] Glucose [Mass/Vol] 141 mg/dL High 75-110 [facility] Glucose [Mass/Vol] 154 mg/dL High 75-110 [facility] Lipid Panelon 10-01-2024 Cholesterol [Mass/Vol] 177 mg/dL 0 - 1 99 mg/dL [facility] 4Blox Cholesterol in HDL [Mass/Vol] 49 mg/dL 40 - PINF mg/dL [facility] 4Blox Cholesterol in LDL [Mass/Vol] 85 mg/dL 0 - 100 mg/dL [facility] [employer] [facility] Cholesterol in VLDL [Mass/Vol] 43 mg/dL High 1 - 30 mg/dL [facility] Cholesterol.total/Chol esterol in HDL [Mass ratio] 3.6 {ratio} [facility] Interpretation and review of laboratory results Abnormal [facility] 4[employer] Triglyceride [Mass/Vol] 213 mg/dL High NINF - 150 mg/dL [facility] [employer] [facility] Lipid Profileon 10-01-2024 Cholesterol [Mass/Vol] 177 mg/dL Normal 0-199 [facility] Comment on above: Result Comment: Chol esterol Guidelines: <200 Desirable 200-240 Borderline >240 Undesirable Performed By: #### B MPX, LIPR, CDP ####[facility] [address] [place] [address] Lab Director: Ramiro Mark MD Cholesterol in HDL [Mass/Vol] 49 mg/dL Normal >40 [facility] Comment on above: Result Comment: HDL Guidelines: <40 Undesirable 40-59 Borderline >59 Desirable Performed By: #### B MPX, LIPR, CDP ####[facility] [address] [place] [address] Lab Director: Ramiro Mark MD Cholesterol in LDL [Mass/Vol] 85 mg/dL Normal 0-100 [facility] Comment on above: Result Comment: LDL Guidelines: <100 Desirable 100-129 Near to/above Desirable 130-159 Borderline >159 UndesirableDirect (measured) LDL and calculated LDL are not interchangeable tests. Performed By: #### B MPX, LIPR, CDP ####[facility] [address]25[address] [place] [address] Lab Director: Ramiro Mark MD Cholesterol in VLDL [Mass/Vol] 43 mg/dL High 1-30 [facility] Comment on above: Performed By: #### B MPX, LIPR, CDP ####[employer] [address]tpjmxxh4072 [place] [address] Lab Director: Ramiro Mark MD Cholesterol.total/Chol esterol in HDL [Mass ratio] 3.6 {ratio} Normal [facility] Comment on above: Performed By: #### B MPX, LIPR, CDP ####[facility] [address] [place], [place] [phone] Director: Ramiro Mark MD Triglyceride [Mass/Vol] 213 mg/dL High <150 [facility] Comment on above: Result Comment: Trig lyceride Guidelines: <150 Desirable 150- 199 Borderline 200-499 High >499 Very high Based on AHA Guidelines for fasting triglyceride, July 2012. Performed By: #### B MPX, LIPR, CDP ####[facility] [address] [place] [address] Lab Director: Ramiro Mark MD MYCOPLASMA PNEUMONIAE ANTIBO DY, IGMon 12-16-2024 M. pneumoniae IgM IA Ql (S) 0.22 NINF - 0.91 [facility] Mycoplasma Ab, IgMon 024 Mycoplasma Ab, IgM 0.22 Normal <0.91 [facility] Comment on above: Result Comment: Refe rence Range:<=0.90 Negative0.91-1.09 Equivocal>=1.10 Positive Performed By: #### P RCAL, CRP, MYCM, GLYHGB, TROPI, SED, CDP, LACTIC, IOCAL, BMPX ####[facility] [address] [place] [address] Lab Director: Ramiro Mark MD#### AGLYCO ####[facility] [address] [place] [address] lab Director: Wil Swanson MD No Panel Informationon 10-01 Interpretation and review of laboratory results Abnormal [facility] Interpretation and review of laboratory results Abnormal [facility] POC Glucose Fingerstickon Glucose [Mass/Vol] 126 mg/dL High 75 - 110 mg/dL [facility] Interpretation and review of laboratory results Abnormal [facility] Glucose [Mass/Vol] 129 mg/dL High 75 - 110 mg/dL [facility] Interpretation and review of laboratory results Abnormal [facility] Glucose [Mass/Vol] 125 mg/dL High 75 - 110 mg/dL [facility] Interpretation and review of laboratory results Abnormal [facility] Glucose [Mass/Vol] 142 mg/dL High 75 - 110 mg/dL [facility] Interpretation and review of laboratory results Abnormal [facility] Glucose [Mass/Vol] 548 mg/dL Critically high 75 - 1 10 mg/dL [facility] Glucose [Mass/Vol] 141 mg/dL High 75 - 110 mg/dL [facility] Glucose [Mass/Vol] 154 mg/dL High 75 - 110 mg/dL [facility] Interpretation and review of laboratory results Abnormal [facility] POCT Glucoseon 10-01-2024 Glucose [Mass/Vol] 180 mg/dL High 74 - 100 mg/dL [facility] Prot. Electroph, Blon 2023 Pathologist Review: ELECTRONICALLY ALEX LACY M.D. Normal [facility] Comment on above: Performed By: #### P HEP, BMP, ANAX, PE, FKLLC, CHELO, MG ####[facility] [address] [place] [address] Lab Director: Ramiro Mark MD Albumin [Mass/Vol] 2.3 g/dL Low 3.2-5.2 [facility] Comment on above: Performed By: #### P HEP, BMP, ANAX, PE, FKLLC, CHELO, MG ####[facility] L[address]avnefzaxw7978 [place] [address] lab Director: Ramiro Mark MD Albumin, % 55 % Normal 45-65 [facility] Comment on above: Performed By: #### P HEP, BMP, ANAX, PE, FKLLC, CHELO, MG ####[facility] [address]swgngz1880 [place] [address] lab Director: Ramiro Mark MD Yqqcp-9-mfcsvlcci 0.2 g/dL Normal 0.1-0.4 [facility] Comment on above: Performed By: #### P HEP, BMP, ANAX, PE, FKLLC, CHELO, MG ####[facility] M[address]utozwbst5100 [place] [address] Lab Director: Ramiro Mark MD Attkx-3-zzbeqiypf,% 5 % Normal 3-6 [facility] Comment on above: Performed By: #### P HEP, BMP, ANAX, PE, FKLLC, CHELO, MG ####[facility] [address]kw[address]mnobw8571 [place] [address] Lab Director: Ramiro Mark MD Uocbn-5-zglivrybc 0.6 g/dL Normal 0.5-0.9 [facility] Comment on above: Performed By: #### P HEP, BMP, ANAX, PE, FKLLC, CHELO, MG ####[facility] [address]maczk5824 [place] [address] Lab Director: Ramiro Mark MD Hrshs-7-qcaaprfgq,% 15 % High 6-13 [facility] Comment on above: Performed By: #### P HEP, BMP, ANAX, PE, FKLLC, CHELO, MG ####[address] [address] lab Director: Ramiro Mark MD Beta-globulins 0.6 g/dL Normal 0.5-1.1 [facility] Comment on above: Performed By: #### P HEP, BMP, ANAX, PE, FKLLC, CHELO, MG ####[facility] [address] [place] [address] Lab Director: Ramiro Mark MD Beta-globulins,% 13 % Normal 11-19 [facility] Comment on above: Performed By: #### P HEP, BMP, ANAX, PE, FKLLC, CHELO, MG ####[facility] [address] [place] [address] Lab Director: Ramiro Mark MD Gamma-globulins 0.5 g/dL Normal 0.5-1.5 [facility] Comment on above: Performed By: #### P HEP, BMP, ANAX, PE, FKLLC, CHELO, MG ####[facility] [address]pc[address]7621 [place] [address] Lab Director: Ramiro Mark MD Gamma-globulins,% 12 % Normal 9-20 [facility] Comment on above: Performed By: #### P HEP, BMP, ANAX, PE, FKLLC, CHELO, MG ####[facility] [address] [place] [address] Lab Director: Ramiro Mark MD Prot. Elect-Interp Albumin is decreased . May be observed with hepatic diseases, proteinuria, Normal [facility] Comment on above: Result Comment: maln utrition, acute phase response, and hemodilution. Gammaglobulins are low normal. Performed By: #### P HEP, BMP, ANAX, PE, FKLLC, CHELO, MG ####[facility] [address]zlpbf4[address] [place] [address] Lab Director: Ramiro Mark MD Total Prot. Sum 4.2 g/dL Low 6.3-8.2 [facility] Comment on above: Performed By: #### P HEP, BMP, ANAX, PE, FKLLC, CHELO, MG ####[facility] [address]rm[address]157 [place] [address] Lab Director: Ramiro Mark MD Total Prot. Sum,% 100 % Normal 98-102 [facility] Comment on above: Performed By: #### P HEP, BMP, ANAX, PE, FKLLC, CHELO, MG ####[facility] [address]faerjnhjacc7038 [place] [address] Lab Director: Ramiro Mark MD Prot. Electrophoresis, Uron 10-01-2024 Total Protein Conc. 100 mg/dL Normal [facility] Comment on above: Performed By: #### U PE, URTPRT, URNA, URCL ####[facility] [address] [place] [address] Lab Director: Ramiro Mark MD Arterial Bld Gas,POCon 09-30 Jody Test Positive [facility] FIO2 30.0 [facility] HCO3 (Bld) [Moles/Vol] 24.4 mmol/L Normal 21.0-28.[address] [facility] Mode of Delivery PRVC Normal [facility] O2 Device Adult Ventilator Normal [facility] Oxygen saturation in Blood 99.4 % High 94.0-98.0 [facility] pCO2, Arterial 36.0 mm Hg Normal 35.0-48.0 [facility] pH, Arterial 7.439 Normal 7.350-7.450 [facility] pO2, Arterial 152.9 mm Hg High 83.0-108.0 [facility] Positive Base Excess (calc) 0.3 mmol/L Normal 0.0-3.0 [facility] Site Drawn Left Radial Artery Normal [facility] Arterial Blood Gas, POCon Jody Test Positive [facility] [employer] FIO2 30.0 [facility] HCO3 (Bld) [Moles/Vol] 24.4 mmol/L 21.0 - 28.0 mmol/L [facility] Mode PRVC [facility] O2 Delivery Device Adult Ventilator [facility] Oxygen saturation in Blood 99.4 % High 94.0 - 98.0 % [facility] POC pCO2 36.0 [facility] POC pH 7.439 7.350 - 7.450 [facility] POC PO2 152.9 High [facility] Positive Base Excess, Art 0.3 mmol/L 0.0 - 3.0 mmol/L [facility] Sample Site Left Radial Artery [facility] Basic Metab w/rfx MGon 09-30 Anion gap [Moles/Vol] 12 mmol/L Normal 9-16 [facility] Comment on above: Performed By: #### B MPX, C4, C3, CDP ####[employer] [place], [place] [id number] [facility] Director: Ramiro Mark MD Calcium [Mass/Vol] 7.8 mg/dL Low 8.6-10.4 [facility] Comment on above: Performed By: #### B MPX, C4, C3, CDP ####[employer] [place] [address] Lab Director: Ramiro Mark MD Chloride [Moles/Vol] 101 mmol/L Normal 98-107 [facility] Comment on above: Performed By: #### B MPX, C4, C3, CDP ####[facility] [address] [place] [address] Lab Director: Ramiro Mark MD CO2 [Moles/Vol] 19 mmol/L Low 20-31 [facility] Comment on above: Performed By: #### B MPX, C4, C3, CDP ####[facility] [address] [place], [place] [phone] Director: Ramiro Mark MD Creatinine [Mass/Vol] 2.5 mg/dL High 0.7-1.2 [facility] Comment on above: Performed By: #### B MPX, C4, C3, CDP ####[facility] [address] [place] [address] Lab Director: Ramiro Mark MD GFR/1.73 sq M.predicted among non-blacks MDRD (S/P/Bld) [Vol rate/Area] 31 mL/min/{1.73_m2} Low >60 [facility] Comment on above: Result Comment: Thes e results are not intended for use in patients <18 years of age.eGFR results are calculated without a race factor using the 2020 CKD-EPI equation.Careful clinical correlation is recommended, particularly when comparing to results calculated using previous equations.The CKD-EPI equation is less accurate in patients with extremes of muscle mass, extra-renal metabolism of creatine, excessive creatine ingestion, or following therapy that affects renal tubular secretion. Performed By: #### B MPX, C4, C3, CDP ####[facility] [address] [place] [address] Lab Director: Ramiro Mark MD Glucose [Mass/Vol] 233 mg/dL High 74-99 [facility] Comment on above: Performed By: #### B MPX, C4, C3, CDP ####[facility] [address] [place] [address] Lab Director: Ramiro Mark MD Potassium [Moles/Vol] 4.3 mmol/L Normal 3.7-5.3 [facility] Comment on above: Performed By: #### B MPX, C4, C3, CDP ####[facility] [address] [place] [address] Lab Director: Ramiro Mark MD Sodium [Moles/Vol] 132 mmol/L Low 136-145 [facility] Comment on above: Performed By: #### B MPX, C4, C3, CDP ####[facility] [address] [place] [address] lab Director: Ramiro Mark MD Urea nitrogen [Mass/Vol] 47 mg/dL High 6-20 [facility] Comment on above: Performed By: #### B MPX, C4, C3, CDP ####[facility] [address] [place], [place] [id number] Lab Director: Ramiro Mark MD Basic Metabolic Panel w/ Ref jose to [facility] 09-30-2024 Anion gap [Moles/Vol] 12 mmol/L 9 - 16 mmol/L [facility] Calcium [Mass/Vol] 7.8 mg/dL Low 8.6 - 10. 4 mg/dL [facility] Chloride [Moles/Vol] 101 mmol/L 98 - 10 7 mmol/L [facility] CO2 [Moles/Vol] 19 mmol/L Low 20 - 31 mmol/L [facility] Creatinine [Mass/Vol] 2.5 mg/dL High 0.7 - 1.2 mg/dL [facility] Est, Glom Filt Rate 31 Low - PINF [facility] Glucose [Mass/Vol] 233 mg/dL High 74 - 99 mg/dL [facility] Interpretation and review of laboratory results Abnormal [facility] Potassium [Moles/Vol] 4.3 mmol/L 3.7 - 5.3 mmol/L [facility] Sodium [Moles/Vol] 132 mmol/L Low 136 - 145 mmol/L [facility] Urea nitrogen [Mass/Vol] 47 mg/dL High 6 - 20 mg/dL [facility] C3on 09-30-2024 C3 117 mg/dL Normal 90-180 [facility] Comment on above: Performed By: #### B MPX, C4, C3, CDP ####[facility] Zhfzkmbendpz0392 [place], [place] [id number] lab Director: Ramiro Mark MD C3 Complementon 09-30-2024 Complement C3 [Mass/Vol] 117 mg/dL 90 - 180 mg/dL [facility] C4on 09-30-2024 C4 22 mg/dL Normal 10-40 [facility] Comment on above: Performed By: #### B MPX, C4, C3, CDP ####[facility] [address]ftyw[address] [place], [place] [id number] lab Director: Ramiro Mark MD C4 Complementon 09-30-2024 Complement C4 [Mass/Vol] 22 mg/dL 10 - 40 mg/dL [facility] CBC with Auto Differentialon 09-30-2024 Basophils (Bld) [#/Vol] 0.04 10*3/uL [facility] Basophils/100 WBC (Bld) 0 % 0 - 2 % [facility] Eosinophils (Bld) [#/Vol] 0.06 10*3/uL [facility] Eosinophils/100 WBC (Bld) 1 % 1 - 4 % [facility] Erythrocyte distribution width (RBC) [Ratio] 13.3 % 11.8 - 14.4 % [facility] Hematocrit (Bld) [Volume fraction] 26.2 % Low 40.7 - 50.3 % [facility] Hemoglobin (Bld) [Mass/Vol] 8.4 g/dL Low 13.0 - 17.0 g/dL [facility] Immature granulocytes (Bld) [#/Vol] 0.06 10*3/uL [facility] Immature granulocytes/100 WBC (Bld) 1 % High 0 [facility] Interpretation and review of laboratory results Abnormal [facility] Lymphocytes/100 WBC (Bld) 12 % Low 24 - 43 % [facility] Lymphocytes/100 WBC (Bld) 1.51 % [facility] MCH (RBC) [Entitic mass] 28.9 pg 25.2 - 33.5 pg [facility] MCHC (RBC) [Mass/Vol] 32.1 g/dL 28.4 - 34.8 g/dL [facility] MCV (RBC) [Entitic vol] 90.0 fL 82.6 - 102.9 fL [facility] Monocytes/100 WBC (Bld) 6 % 3 - 12 % [facility] Monocytes/100 WBC (Bld) 0.77 % [facility] Neutrophils/100 WBC (Bld) 81 % High 36 - 65 % [facility] Nucleated RBC/100 WBC (Bld) [Ratio] 0.0 % 0.0 per 100 WBC [facility] Platelet mean volume (Bld) [Entitic vol] 10.9 fL 8.1 - 13.5 fL [facility] Platelets (Bld) [#/Vol] 186 10*3/uL [facility] RBC (Bld) [#/Vol] 2.91 10*6/uL Low 4.21 - 5.7 7 m/uL [facility] Segmented neutrophils/100 WBC (Bld) 10.11 % High [facility] WBC other (Bld) [#/Vol] 12.6 High [facility] CBC with Diffon 09-30-2024 Abs. Basophil 0.04 k/uL Normal 0.00-0.20 [facility] Comment on above: Performed By: #### B MPX, C4, C3, CDP ####[facility] [address] [place], [place] [id number] [facility] Director: Ramiro Mark MD Abs.Imm.Granulocyte 0.06 k/uL Normal 0.00-0.30 [facility] Comment on above: Performed By: #### B MPX, C4, C3, CDP ####[place], [place] [address])[phone] Director: Ramiro Mark MD Abs.Neutrophil (Seg) 10.11 k/uL High 1.50-8.10 [facility] Comment on above: Performed By: #### B MPX, C4, C3, CDP ####[place], [place] [address] [phone] Director: Ramiro Mark MD Basophils/100 WBC (Bld) 0 % Normal 0-2 [facility] Comment on above: Performed By: #### B MPX, C4, C3, CDP ####[place], [place] [address])[phone] Director: Ramiro Mark MD Eosinophils (Bld) [#/Vol] 0.06 10*3/uL Normal 0.00-0.44 [facility] Comment on above: Performed By: #### B MPX, C4, C3, CDP ####[place], [place] [address])[phone] Director: Ramiro Mark MD Eosinophils/100 WBC (Bld) 1 % Normal 1-4 [facility] Comment on above: Performed By: #### B MPX, C4, C3, CDP ####[place], [place] [address])[phone] Director: Ramiro Mark MD Erythrocyte distribution width (RBC) [Ratio] 13.3 % Normal 11.8-14.4 [facility] Comment on above: Performed By: #### B MPX, C4, C3, CDP ####[place], [place] [address])[phone] Director: Ramiro Mark MD Hematocrit (Bld) [Volume fraction] 26.2 % Low 40.7-50.3 [facility] Comment on above: Performed By: #### B MPX, C4, C3, CDP ####[address] [phone] Director: Ramiro Mark MD Hemoglobin (Bld) [Mass/Vol] 8.4 g/dL Low 13.0-17.0 [facility] Comment on above: Performed By: #### B MPX, C4, C3, CDP ####[facility] [address] [place] [address] [phone] Director: Ramiro Mark MD Immature granulocytes/100 WBC (Bld) 1 % High 0 [facility] Comment on above: Performed By: #### B MPX, C4, C3, CDP ####[address] [address])[phone] Director: Ramiro Mark MD Lymphocytes (Bld) [#/Vol] 1.51 10*3/uL Normal 1.10-3.70 [facility] Comment on above: Performed By: #### B MPX, C4, C3, CDP ####[address] [phone] Director: Ramiro Mark MD Lymphocytes/100 WBC (Bld) 12 % Low 24-43 [facility] Comment on above: Performed By: #### B MPX, C4, C3, CDP ####[facility] [address] [place] [address] [phone] Director: Ramiro Mark MD MCH (RBC) [Entitic mass] 28.9 pg Normal 25.2-33.5 [facility] Comment on above: Performed By: #### B MPX, C4, C3, CDP ####[facility] [address] [place], [place] [phone] Director: Ramiro Mark MD MCHC (RBC) [Mass/Vol] 32.1 g/dL Normal 28.4-34.8 [facility] Comment on above: Performed By: #### B MPX, C4, C3, CDP ####[address] [phone] Director: Ramiro Mark MD MCV (RBC) [Entitic vol] 90.0 fL Normal 82.6-102.9 [facility] Comment on above: Performed By: #### B MPX, C4, C3, CDP ####[address] [phone] Director: Ramiro Mark MD Monocytes (Bld) [#/Vol] 0.77 10*3/uL Normal 0.10-1.20 [facility] Comment on above: Performed By: #### B MPX, C4, C3, CDP ####[place], [place] [address])[phone] Director: Ramiro Mark MD Monocytes/100 WBC (Bld) 6 % Normal 3-12 [facility] Comment on above: Performed By: #### B MPX, C4, C3, CDP ####[address] [phone] Director: Ramiro Mark MD Neutrophil (Seg) 81 % High 36-65 [facility] Comment on above: Performed By: #### B MPX, C4, C3, CDP ####[facility] [address] [place] [address] [phone] Director: Ramiro Mark MD NRBC Automated 0.0 per 100 WBC Normal 0.0 [facility] Comment on above: Performed By: #### B MPX, C4, C3, CDP ####[facility] [address] [place], [place] [phone] Director: Ramiro Mark MD Platelet mean volume (Bld) [Entitic vol] 10.9 fL Normal 8.1-13.5 [facility] Comment on above: Performed By: #### B MPX, C4, C3, CDP ####[facility] [address] [place] [address] Lab Director: Ramiro Mark MD Platelets (Bld) [#/Vol] 186 10*3/uL Normal 138-453 [facility] Comment on above: Performed By: #### B MPX, C4, C3, CDP ####[facility] [address] [place] [address] Lab Director: Ramiro Mark MD RBC (Bld) [#/Vol] 2.91 10*6/uL Low 4.21-5.77 [facility] Comment on above: Performed By: #### B MPX, C4, C3, CDP ####[facility] [address]bel[address]qltqc6417 [place] [address] Lab Director: Ramiro Mark MD WBC (Bld) [#/Vol] 12.6 10*3/uL High 3.5-11.3 [facility] Comment on above: Performed By: #### B MPX, C4, C3, CDP ####[facility] [address] [place] [address] Lab Director: Ramiro Mark MD Calcium, Ionicon 09-30-2024 Calcium [Moles/Vol] 1.20 mmol/L Normal 1.13-1.33 [facility] Comment on above: Performed By: #### I OCAL ####[facility] [address] [place] [address] Lab Director: Ramiro Mark MD Calcium, Ionizedon Calcium.ionized (Bld) [Moles/Vol] 1.20 mmol/L 1.13 - 1.33 mmol/L [facility] Chloride, Random Urineon Chloride (U) [Moles/Vol] mmol/L mmol/L [facility] Chloride,Random Uron 024 Cl Conc. <20 Normal [facility] Comment on above: Result Comment: No n ormal range established. Performed By: #### U PE, URTPRT, URNA, URCL ####[facility] [address] [place], [place] [phone] lab Director: Ramiro Mark MD Cult,Respiratoryon 4 Cult,Respiratory Abnormal [facility] Comment on above: Performed By: #### R ESPC ####[facility] [address] [place] [address] lab Director: Ramiro Mark MD [facility] Interpretation and review of laboratory results Abnormal [facility] Microorganism identified Cx Nom (Unsp spec) NORMAL RESPIRATORY AYDEN LIGHT GROWTH [facility] Microorganism or agent identified Nom (Unsp spec) < 10 EPITHELIAL CELLS/LPF [facility] Microorganism or agent identified Nom (Unsp spec) >10, <25 NEUTROPHILS/LPF [facility] Microorganism or agent identified Nom (Unsp spec) Positive Abnormal [facility] Service comment (Unsp spec) [Interp] Site: Respiratory specimen [facility] Specimen Description .TRACHEAL ASPIRATE [facility] Free [place] + Lambdaon 2023 Free [place] Lt Chains 41.5 mg/L High <20.7 [facility] Comment on above: Result Comment: Perf ormed using Diazyme reagent on Jaime Moira Pro. Results obtained with different assay methods cannot be used interchangeably. Performed By: #### P HEP, BMP, ANAX, PE, FKLLC, CHELO, MG ####[facility] [address]hum[address]op[address] [place] [address] Lab Director: Ramiro Mark MD Free [place]/Lambda Rat 1.17 Normal 0.22-1.74 [facility] Comment on above: Performed By: #### P HEP, BMP, ANAX, PE, FKLLC, CHELO, MG ####[facility] HospitalEduoraOdumlckcpnul2941 [place], [place] [phone] Lab Director: Ramiro Mark MD Free Lambda Lt Chains 35.6 mg/L High 4.2-27.7 [facility] Comment on above: Result Comment: Perf ormed using Diazyme reagent on Jaime Moira Pro. Results obtained with different assay methods cannot be used interchangeably. Performed By: #### P HEP, BMP, ANAX, PE, FKLLC, CHELO, MG ####[facility] [address] [place], [place] [phone] Lab Director: Ramiro Mark MD [facility]COS[facility]ATED [facility] 4 Estimated Avg Glucose >427 mg/dL [facility] HbA1c (Bld) [Mass fraction] % High NINF - 5.6 % [facility] Interpretation and review of laboratory results Abnormal [facility] Glucose (POC)on 09-30-2024 Glucose [Mass/Vol] 242 mg/dL High 74-100 [facility] Glucose,Whole Bloodon 2023 Glucose [Mass/Vol] 170 mg/dL High 75-110 [facility] Glucose [Mass/Vol] 176 mg/dL High 75-110 [facility] Glucose [Mass/Vol] 202 mg/dL High 75-110 [facility] Glucose [Mass/Vol] 258 mg/dL High 75-110 [facility] Glycosylated [facility] [address] Glucose >427 Normal [facility] Comment on above: Result Comment: (NOT E)Performed By: [facility] [place] [address]Wusiajjoqt Director: Rogelio Miranda MD, PhDCLIA Number: [id number] Performed By: #### P RCAL, CRP, MYCM, GLYHGB, TROPI, SED, CDP, LACTIC, IOCAL, BMPX ####[facility] [address] [place], [place] [address] Lab Director: Ramiro Mark MD#### AGLYCO ####[facility] [address] [place] [address] Lab Director: Wil Swanson MD HbA1c (Bld) [Mass fraction] % High <=5.6 [facility] Comment on above: Result Comment: (NOT E)INTERPRETIVE INFORMATION: Hemoglobin [id number] values of 5.7-6.4 percent indicate an increased risk fordeveloping diabetes mellitus. HbA1c values greater than or equalto 6.5 percent are diagnostic of diabetes mellitus. For diagnosisof diabetes in individuals without unequivocal hyperglycemia,results should be confirmed by repeat testing. Performed By: #### P RCAL, CRP, MYCM, GLYHGB, TROPI, SED, CDP, LACTIC, IOCAL, BMPX ####[facility] [address] [place] [address] Lab Director: Ramiro Mark MD#### AGLYCO ####[facility] [address] [place] [address] Lab Director: Wil Swanson MD Hepatitis Acute [facility] 09-30 Hep A Ab,IgM Non-Reactive Normal NR [facility] Comment on above: Performed By: #### P HEP, BMP, ANAX, PE, FKLLC, CHELO, MG ####[facility] [address] [place] [address] Lab Director: Ramiro Mark MD Hep B Core Ab,IgM Non-Reactive Normal NR [facility] Comment on above: Performed By: #### P HEP, BMP, ANAX, PE, FKLLC, CHELO, MG ####[facility] [address] [place] [address] Lab Director: Ramiro Mark MD Hep B Surf Ag Non-Reactive Normal NR [facility] Comment on above: Performed By: #### P HEP, BMP, ANAX, PE, FKLLC, CHELO, MG ####[facility] [address] [place], [place] [phone] lab Director: Ramiro Mark MD Hep C Ab Non-Reactive Normal NR [facility] Comment on above: Result Comment: The hepatitis C procedure used in our laboratory is a Chemiluminescent test specific for three recombinant HCV antigens. A negative anti-HCV result indicates that the antibodies to hepatitis C virus are not present at this time.Individuals with reactive anti-HCV should be considered infected and infectious until proven otherwise. Confirmation of all equivocal or reactive results is recommended by ordering HCV RNA by PCR. Performed By: #### P HEP, BMP, ANAX, PE, FKLLC, CHELO, MG ####[facility] [address] [place], [place] [phone] lab Director: Ramiro Mark MD Hepatitis Panel, Acuteon HAV IgM IA Ql Non-Reactive NONREACTIVE [facility] HBV core IgM IA Ql Non-Reactive NONREACTIVE [facility] HBV surface Ag IA Ql Non-Reactive NONREACTIVE B [facility] HCV Ab IA Ql Non-Reactive NONREACTIVE [facility] [place]/Lambda Quantitative Fr ee Light Chains, Serumon 09-30-2024 [place]/Lambda Ratio 1.17 0.22 - 1.74 [facility] Immunoglobulin light chains.kappa.free (S) [Mass/Vol] 41.5 mg/L High NINF - 20.7 mg/L [facility] Immunoglobulin light chains.lambda.free [Mass/Vol] 35.6 mg/L High 4.2 - 27.7 mg/L [facility] Interpretation and review of laboratory results Abnormal [facility] Lactic Acid (POC)on 09-30-20 24 Lactate [Moles/Vol] 0.8 mmol/L Normal 0.56-1.39 [facility] Lactic Acid, POCon 4 POC Lactic Acid 0.8 mmol/L 0.56 - 1.39 mmol/L [facility] MR Brain WO contraston 09-30 PN RIS CONSOLIDATED [facility] RIS CONSOLIDATED [facility] Radiology Study observation (narrative) [facility] MR Brain WO contrastOrdered By: Jeffery Smalls on 09-30-2024 [facility] Work Phone: MRI BRAIN WO CONTRASTon 09-16 MRI BRAIN WO CONTRAST Normal [facility] Microscopic Urinalysison Bacteria LM Ql (Urine sed) None None [facility] Casts LM.LPF (Urine sed) [#/Area] 10 TO 20 HYALINE Reference range defined for non-centrifuged specimen. [facility] Epithelial cells LM.HPF (Urine sed) [#/Area] 5 TO 10 [facility] RBC LM.HPF (Urine sed) [#/Area] 10 TO 20 [facility] WBC LM.HPF (Urine sed) [#/Area] 5 TO 10 [facility] No Panel Informationon 09-30 [facility] Interpretation and review of laboratory results Abnormal [facility] POC Glucose Fingerstickon Glucose [Mass/Vol] 170 mg/dL High 75 - 110 mg/dL [facility] Interpretation and review of laboratory results Abnormal [facility] Glucose [Mass/Vol] 176 mg/dL High 75 - 110 mg/dL [facility] Interpretation and review of laboratory results Abnormal [facility] Glucose [Mass/Vol] 202 mg/dL High 75 - 110 mg/dL [facility] Interpretation and review of laboratory results Abnormal [facility] Glucose [Mass/Vol] 258 mg/dL High 75 - 110 mg/dL [facility] Interpretation and review of laboratory results Abnormal [facility] POCT Glucoseon 09-30-2024 Glucose [Mass/Vol] 242 mg/dL High 74 - 100 mg/dL [facility] Prot. Electroph, Blon 2023 Protein [Mass/Vol] 4.2 g/dL Low 6.6-8.7 [facility] Comment on above: Performed By: #### P HEP, BMP, ANAX, PE, FKLLC, CHELO, MG ####[facility] [address] [place] [address] Lab Director: Ramiro Mark MD Prot. Electrophoresis, Uron 09-30-2024 Type of Specimen .URINE Normal [facility] Comment on above: Performed By: #### U PE, URTPRT, URNA, URCL ####[facility] [address] [place] [address] Lab Director: Ramiro Mark MD Protein / creatinine ratio, urineon 09-30-2024 Creatinine (U) [Mass/Vol] 41.2 mg/dL 39.0 - 259.0 mg/dL [facility] Interpretation and review of laboratory results Abnormal [facility] Protein (U) [Mass/Vol] 100 mg/dL Trip [facility] Urine Total Protein Creatinine Ratio 2.43 High 0.00 - 0.20 [facility] Protein,Tot,[place] Uron 2023 Creatinine [Mass/Vol] 41.2 mg/dL Normal 39.0-259.0 [facility] Comment on above: Performed By: #### U PE, URTPRT, URNA, URCL ####[facility] [address] [place], [place] [phone] Director: Ramiro Mark MD Tot Prot. Conc. 100 mg/dL [facility] Comment on above: Result Comment: No n ormal range established. Performed By: #### U PE, URTPRT, URNA, URCL ####[facility] [address] [place] [address] Lab Director: Ramiro Mark MD TP/Cre Ratio 2.43 High 0.00-0.20 [facility] Comment on above: Performed By: #### U PE, URTPRT, URNA, URCL ####[facility] [address] [place] [address] Lab Director: Ramiro Mark MD Sodium, Random Uron 09-30-20 24 Na Conc. Urine <20 Normal [facility] Comment on above: Result Comment: No n ormal range established. Performed By: #### U PE, URTPRT, URNA, URCL ####[facility] [address] [place] [address] Lab Director: Ramiro Mark MD Sodium, urine, randomon 09-16 Sodium (U) [Moles/Vol] mmol/L mmol/L [facility] UA w/Reflex Cultureon 2023 Bilirubin, SemiQt,Ur Negative Normal NEG [facility] Comment on above: Performed By: #### U AX, UMICAO ####[facility] [address] [place] [address] Lab Director: Ramiro Mark MD Blood, Urine MODERATE Abnormal NEG [facility] Comment on above: Performed By: #### U AX, UMICAO ####[facility] [address] [place] [address] Lab Director: Ramiro Mark MD Clarity (U) Cloudy Abnormal CLEAR [facility] Comment on above: Performed By: #### U AX, UMICAO ####[facility] [address] [place] [address] Lab Director: Ramiro Mark MD Color (U) Yellow Normal YEL [facility] Comment on above: Performed By: #### U AX, UMICAO ####[facility] [address]kgduyyyv8695 [place] [address] Lab Director: Ramiro Mark MD Glucose Ql (U) 3+ mg/dL Abnormal NEG [facility] Comment on above: Performed By: #### U AX, UMICAO ####[facility] [address]wh[address] [place] [address] Lab Director: Ramiro Mark MD Ketones Ql (U) Negative Normal NEG [facility] Comment on above: Performed By: #### U AX, UMICAO ####[facility] [address]wm[address] [place], [place] [phone] Director: Ramiro Mark MD Leukocyte esterase Test strip Ql (U) Negative Normal NEG [facility] Comment on above: Performed By: #### U AX, UMICAO ####[facility] [address]buoz[address] [place], [place] [phone] Director: Ramiro Mark MD Nitrite,Ur Negative Normal NEG [facility] Comment on above: Performed By: #### U AX, UMICAO ####[facility] [address] [place], [place] [phone] Director: Ramiro Mark MD PH,Ur 5.0 Normal 5.0-8.0 [facility] Comment on above: Performed By: #### U AX, UMICAO ####[facility] [address]sp[address] [place], [place] [phone] Director: Ramiro Mark MD Protein Ql (U) 3+ mg/dL Abnormal NEG [facility] Comment on above: Performed By: #### U AX, UMICAO ####[facility] [address]zrz67[address] [place], [place] [phone] Director: Ramiro Mark MD Spec. [place],Ur 1.027 Normal 1.005-1.030 [facility] Comment on above: Performed By: #### U AX, UMICAO ####[facility] [address]dcjc7198 [place] [address] Lab Director: Ramiro Mark MD Urobilinogen,Ur Normal Normal 0.0-1.0 [facility] Comment on above: Performed By: #### U AX, UMICAO ####[facility] [address]brsdga7220 [place] [address] Lab Director: Ramiro Mark MD Urinalysis with Reflex to Cu ltureon 09-30-2024 Bilirubin Ql (U) Negative NEGATIVE [facility] Clarity (U) Cloudy Abnormal Clear [facility] Color (U) Yellow Yellow [facility] Glucose Test strip (U) [Mass/Vol] 3+ Abnormal NEGATIVE mg/dL [facility] Hemoglobin Auto test strip Ql (U) MODERATE Abnormal NEGATIVE [facility] Interpretation and review of laboratory results Abnormal [facility] Ketones (U) [Mass/Vol] Negative NEGAT RAJAN mg/dL [facility] Leukocyte esterase Test strip Ql (U) Negative NEGATIVE [facility] Nitrite Ql (U) Negative NEGATIVE [facility] pH (U) 5.0 [pH] 5.0 - 8.0 [facility] Protein (U) [Mass/Vol] 3+ Abnormal NEGAT RAJAN mg/dL [facility] Specific gravity (U) [Rel density] 1.027 1.005 - 1.030 [facility] Urobilinogen Qn (U) Normal 0.0 - 1. 0 EU/dL [facility] Urinalysis,Microon 4 Bacteria None Normal NONE [facility] Comment on above: Performed By: #### U AX, UMICAO ####[facility] [address] [place], [place] [phone] Lab Director: Ramiro Mark MD Casts 10 TO 20 HYALINE Normal 0-8 [facility] Comment on above: Result Comment: Refe rence range defined for non-centrifuged specimen. Performed By: #### U AX, UMICAO ####[facility] [address] [place], [place] [phone] Lab Director: Ramiro Mark MD Epithelial cells LM Ql (Urine sed) 5 TO 10 Normal 0-5 [facility] Comment on above: Performed By: #### U AX, UMICAO ####[facility] [address] [place] [address] lab Director: Ramiro Mark MD Urine RBC's 10 TO 20 Normal 0-4 [facility] Comment on above: Result Comment: Refe rence range defined for non-centrifuged specimen. Performed By: #### U AX, UMICAO ####[facility] [address] [place], [place] [id number] lab Director: Ramiro Mark MD Urine WBC's 5 TO 10 Normal 0-5 [facility] Comment on above: Performed By: #### U AX, UMICAO ####[facility] [address] [place], [place] [id number] lab Director: Ramiro Mark MD Anti-Xa, Unfractionated [facility] 09-[facility] Anti-XA Unfrac Heparin 0.51 IU/L [facility] Anti-XA Unfrac Heparin 0.28 IU/L [facility] Anti-XA Unfrac Heparin 0.44 IU/L [facility] Arterial Bld Gas,POCon 09-29 Jody Test Positive Normal [facility] FIO2 30.0 Normal [facility] HCO3 (Bld) [Moles/Vol] 25.0 mmol/L Normal 21.0-28.[address] [facility] Oxygen saturation in Blood 99.5 % High 94.0-98.0 [facility] pCO2, Arterial 38.9 mm Hg Normal 35.0-48.0 [facility] pH, Arterial 7.415 Normal 7.350-7.450 [facility] pO2, Arterial 161.8 mm Hg High 83.0-108.0 [facility] Positive Base Excess (calc) 0.4 mmol/L Normal 0.0-3.0 [facility] Site Drawn Right Radial Artery Normal [facility] Arterial Blood Gas, POCon Jody Test Positive [facility] FIO2 30.0 [facility] HCO3 (Bld) [Moles/Vol] 25.0 mmol/L 21.0 - 28.0 mmol/L [facility] Oxygen saturation in Blood 99.5 % High 94.0 - 98.0 % [facility] POC pCO2 38.9 [facility] POC pH 7.415 7.350 - 7.450 [facility] POC PO2 161.8 High [facility] Positive Base Excess, Art 0.4 mmol/L 0.0 - 3.0 mmol/L [facility] Sample Site Right Radial Artery [facility] Basic Metabolic Panelon 12-1 Anion gap [Moles/Vol] 12 mmol/L 9 - 16 mmol/L [facility] Calcium [Mass/Vol] 8.1 mg/dL Low 8.6 - 10. 4 mg/dL [facility] Chloride [Moles/Vol] 101 mmol/L 98 - 10 7 mmol/L [facility] CO2 [Moles/Vol] 20 mmol/L 20 - 31 mmol/L [facility] Creatinine [Mass/Vol] 2.4 mg/dL High 0.7 - 1.2 mg/dL [facility] Est, Glom Filt Rate 32 Low - PINF [facility] Glucose [Mass/Vol] 258 mg/dL High 74 - 99 mg/dL [facility] Interpretation and review of laboratory results Abnormal [facility] Potassium [Moles/Vol] 4.4 mmol/L 3.7 - 5.3 mmol/L [facility] Sodium [Moles/Vol] 133 mmol/L Low 136 - 145 mmol/L [facility] Urea nitrogen [Mass/Vol] 39 mg/dL High 6 - 20 mg/dL [facility] Est, Glom Filt Rate 36 Low - PINF [facility] Interpretation and review of laboratory results Abnormal [facility] Anion gap [Moles/Vol] 11 mmol/L 9 - 16 mmol/L [facility] Calcium [Mass/Vol] 8.0 mg/dL Low 8.6 - 10. 4 mg/dL [facility] Chloride [Moles/Vol] 104 mmol/L 98 - 10 7 mmol/L [facility] CO2 [Moles/Vol] 21 mmol/L 20 - 31 mmol/L [facility] Creatinine [Mass/Vol] 2.4 mg/dL High 0.7 - 1.2 mg/dL [facility] Est, Glom Filt Rate 32 Low - PINF [facility] Glucose [Mass/Vol] 214 mg/dL High 74 - 99 mg/dL [facility] Interpretation and review of laboratory results Abnormal [facility] Potassium [Moles/Vol] 3.8 mmol/L 3.7 - 5.3 mmol/L [facility] Sodium [Moles/Vol] 136 mmol/L 136 - 145 mmol/L [facility] Urea nitrogen [Mass/Vol] 41 mg/dL High 6 - 20 mg/dL [facility] Basic Metabolic Profon 09-29 Anion gap [Moles/Vol] 12 mmol/L Normal 9-16 [facility] Comment on above: Performed By: #### P HO, MG, BMP, HEPXA ####[facility] [address] [place] [address] Lab Director: Ramiro Mark MD Calcium [Mass/Vol] 8.1 mg/dL Low 8.6-10.4 [facility] Comment on above: Performed By: #### P HO, MG, BMP, HEPXA ####[facility] [address] [place] [id number] Lab Director: Ramiro Mark MD Chloride [Moles/Vol] 101 mmol/L Normal 98-107 [facility] Comment on above: Performed By: #### P HO, MG, BMP, HEPXA ####[facility] [address] [place] [id number] lab Director: Ramiro Mark MD CO2 [Moles/Vol] 20 mmol/L Normal 20-31 [facility] [facility] Comment on above: Performed By: #### P HO, MG, BMP, HEPXA ####[facility] [address] [place] [address] Lab Director: Ramiro Mark MD Creatinine [Mass/Vol] 2.4 mg/dL High 0.7-1.2 [facility] Comment on above: Performed By: #### P HO, MG, BMP, HEPXA ####[facility] [address] [place] [address] Lab Director: Ramiro Mark MD GFR/1.73 sq M.predicted among non-blacks MDRD (S/P/Bld) [Vol rate/Area] 32 mL/min/{1.73_m2} Low >60 [facility] Comment on above: Result Comment: Thes e results are not intended for use in patients <18 years of age.eGFR results are calculated without a race factor using the 2020 CKD-EPI equation.Careful clinical correlation is recommended, particularly when comparing to results calculated using previous equations.The CKD-EPI equation is less accurate in patients with extremes of muscle mass, extra-renal metabolism of creatine, excessive creatine ingestion, or following therapy that affects renal tubular secretion. Performed By: #### P HO, MG, BMP, HEPXA ####[facility] [address] [place] [address] Lab Director: Ramiro Mark MD Glucose [Mass/Vol] 258 mg/dL High 74-99 [facility] Comment on above: Performed By: #### P HO, MG, BMP, HEPXA ####[facility] [address] [place] [address] Lab Director: Ramiro Mark MD Potassium [Moles/Vol] 4.4 mmol/L Normal 3.7-5.3 [facility] Comment on above: Result Comment: Spec imen hemolysis has exceeded the interference as defined by Jaime. Value may be falsely increased. Suggest recollection if clinically indicated. Performed By: #### P HO, MG, BMP, HEPXA ####[facility] [address] [place] [address] Lab Director: Ramiro Mark MD Sodium [Moles/Vol] 133 mmol/L Low 136-145 [facility] Comment on above: Performed By: #### P HO, MG, BMP, HEPXA ####[facility] [address] [place] [address] Lab Director: Ramiro Mark MD Urea nitrogen [Mass/Vol] 39 mg/dL High 6-20 [facility] Comment on above: Performed By: #### P HO, MG, BMP, HEPXA ####[facility] [address] [place] [address] Lab Director: Ramiro Mark MD Anion gap [Moles/Vol] 9 mmol/L Normal 9-16 [facility] Comment on above: Performed By: #### P HEP, BMP, ANAX, PE, FKLLC, CHELO, MG ####[facility] [address] [place] [address] Lab Director: Ramiro Mark MD Calcium [Mass/Vol] 7.1 mg/dL Low 8.6-10.4 [facility] Comment on above: Performed By: #### P HEP, BMP, ANAX, PE, FKLLC, CHELO, MG ####[facility] [address] [place] [address] Lab Director: Ramiro Mark MD Chloride [Moles/Vol] 99 mmol/L Normal 98-107 [facility] Comment on above: Performed By: #### P HEP, BMP, ANAX, PE, FKLLC, CHELO, MG ####[facility] [address] [place] [address] Lab Director: Ramiro Mark MD CO2 [Moles/Vol] 19 mmol/L Low 20-31 [facility] Comment on above: Performed By: #### P HEP, BMP, ANAX, PE, FKLLC, CHELO, MG ####[facility] [address] [place] [address] Lab Director: Ramiro Mark MD Creatinine [Mass/Vol] 2.2 mg/dL High 0.7-1.2 [facility] Comment on above: Performed By: #### P HEP, BMP, ANAX, PE, FKLLC, CHELO, MG ####[facility] [address] [place] [address] Lab Director: Ramiro Mark MD Glucose [Mass/Vol] 588 mg/dL Critically high 74-99 [facility] Comment on above: Performed By: #### P HEP, BMP, ANAX, PE, FKLLC, CHELO, MG ####[facility] [address] [place] [address] Lab Director: Ramiro Mark MD Potassium [Moles/Vol] 3.5 mmol/L Low 3.7-5.3 [facility] Comment on above: Performed By: #### P HEP, BMP, ANAX, PE, FKLLC, CHELO, MG ####[facility] [address] [place] [address] Lab Director: Ramiro Mark MD Sodium [Moles/Vol] 127 mmol/L Low 136-145 [facility] Comment on above: Performed By: #### P HEP, BMP, ANAX, PE, FKLLC, CHELO, MG ####[facility] [address] [place] [address] Lab Director: Ramiro Mark MD Urea nitrogen [Mass/Vol] 34 mg/dL High 6-20 [facility] Comment on above: Performed By: #### P HEP, BMP, ANAX, PE, FKLLC, CHELO, MG ####[facility] [address] [place] [address] Lab Director: Ramiro Mark MD GFR/1.73 sq M.predicted among non-blacks MDRD (S/P/Bld) [Vol rate/Area] 36 mL/min/{1.73_m2} Low >60 [facility] Comment on above: Result Comment: Thes e results are not intended for use in patients <18 years of age.eGFR results are calculated without a race factor using the 2020 CKD-EPI equation.Careful clinical correlation is recommended, particularly when comparing to results calculated using previous equations.The CKD-EPI equation is less accurate in patients with extremes of muscle mass, extra-renal metabolism of creatine, excessive creatine ingestion, or following therapy that affects renal tubular secretion. Performed By: #### P HEP, BMP, ANAX, PE, FKLLC, CHELO, MG ####[facility] [address] [place], [place] [address])[phone] Director: Ramiro Mark MD Anion gap [Moles/Vol] 11 mmol/L Normal 9-16 [facility] Comment on above: Performed By: #### P HO, MG, BMP ####[facility] [address] [place] [address])[phone] Director: Ramiro Mark MD Calcium [Mass/Vol] 8.0 mg/dL Low 8.6-10.4 [facility] Comment on above: Performed By: #### P HO, MG, BMP ####[facility] [address] [place] [address])[phone] Director: Ramiro Mark MD Chloride [Moles/Vol] 104 mmol/L Normal 98-107 [facility] Comment on above: Performed By: #### P HO, MG, BMP ####[facility] [address] [place], [place] [address])[phone] Director: Ramiro Mark MD CO2 [Moles/Vol] 21 mmol/L Normal 20-31 [facility] Comment on above: Performed By: #### P HO, MG, BMP ####[facility] [address] [place], [place] [address])[phone] Director: Ramiro Mark MD Creatinine [Mass/Vol] 2.4 mg/dL High 0.7-1.2 [facility] Comment on above: Performed By: #### P HO, MG, BMP ####[facility] [address] [place] [address] Lab Director: Ramiro Mark MD GFR/1.73 sq M.predicted among non-blacks MDRD (S/P/Bld) [Vol rate/Area] 32 mL/min/{1.73_m2} Low >60 [facility] Comment on above: Result Comment: Thes e results are not intended for use in patients <18 years of age.eGFR results are calculated without a race factor using the 2020 CKD-EPI equation.Careful clinical correlation is recommended, particularly when comparing to results calculated using previous equations.The CKD-EPI equation is less accurate in patients with extremes of muscle mass, extra-renal metabolism of creatine, excessive creatine ingestion, or following therapy that affects renal tubular secretion. Performed By: #### P HO, MG, BMP ####[facility] [address] [place] [address])[phone] Director: Ramiro Mark MD Glucose [Mass/Vol] 214 mg/dL High 74-99 [facility] Comment on above: Performed By: #### P HO, MG, BMP ####[facility] [address] [place] [address] Lab Director: Ramiro Mark MD Potassium [Moles/Vol] 3.8 mmol/L Normal 3.7-5.3 [facility] Comment on above: Performed By: #### P HO, MG, BMP ####[facility] [address] [place] [address] Lab Director: Ramiro Mark MD Sodium [Moles/Vol] 136 mmol/L Normal 136-145 [facility] Comment on above: Performed By: #### P HO, MG, BMP ####[facility] [address] [place] [address] Lab Director: Ramiro Mark MD Urea nitrogen [Mass/Vol] 41 mg/dL High 6-20 [facility] Comment on above: Performed By: #### P HO, MG, BMP ####[facility] [address] [place] [address] lab Director: Ramiro Mark MD CBC with Auto Differentialon 09-29-2024 Basophils (Bld) [#/Vol] 0.05 10*3/uL [facility] Basophils/100 WBC (Bld) 0 % 0 - 2 % [facility] Eosinophils (Bld) [#/Vol] [facility] Eosinophils/100 WBC (Bld) 0 % Low 1 - 4 % [facility] Erythrocyte distribution width (RBC) [Ratio] 13.1 % 11.8 - 14.4 % [facility] Hematocrit (Bld) [Volume fraction] 26.1 % Low 40.7 - 50.3 % [facility] Hemoglobin (Bld) [Mass/Vol] 8.8 g/dL Low 13.0 - 17.0 g/dL [facility] Immature granulocytes (Bld) [#/Vol] 0.12 10*3/uL [facility] Immature granulocytes/100 WBC (Bld) 1 % High 0 [facility] Interpretation and review of laboratory results Abnormal [facility] Lymphocytes/100 WBC (Bld) 8 % Low 24 - 43 % [facility] Lymphocytes/100 WBC (Bld) 1.42 % [facility] MCH (RBC) [Entitic mass] 28.6 pg 25.2 - 33.5 pg [facility] MCHC (RBC) [Mass/Vol] 33.7 g/dL 28.4 - 34.8 g/dL [facility] MCV (RBC) [Entitic vol] 84.7 fL 82.6 - 102.9 fL [facility] Monocytes/100 WBC (Bld) 5 % 3 - 12 % [facility] Monocytes/100 WBC (Bld) 0.81 % [facility] Neutrophils/100 WBC (Bld) 86 % High 36 - 65 % [facility] Nucleated RBC/100 WBC (Bld) [Ratio] 0.0 % 0.0 per 100 WBC [facility] Platelet mean volume (Bld) [Entitic vol] 10.6 fL 8.1 - 13.5 fL [facility] Platelets (Bld) [#/Vol] 214 10*3/uL [facility] RBC (Bld) [#/Vol] 3.08 10*6/uL Low 4.21 - 5.7 7 m/uL [facility] Segmented neutrophils/100 WBC (Bld) 15.23 % High [facility] WBC other (Bld) [#/Vol] 17.6 High [facility] CBC with Diffon 09-29-2024 Abs. Basophil 0.05 k/uL Normal 0.00-0.20 [facility] Comment on above: Performed By: #### C DP ####[place], [place] [address])[phone] Director: Ramiro Mark MD Abs. Eosinophil <0.03 Normal 0.00-0.44 [facility] Comment on above: Performed By: #### C DP ####[place], [place] [address])[phone] Director: Ramiro Mark MD Abs.Imm.Granulocyte 0.12 k/uL Normal 0.00-0.30 [facility] Comment on above: Performed By: #### C DP ####[place], [place] [address])[phone] Director: Ramiro Mark MD Abs.Neutrophil (Seg) 15.23 k/uL High 1.50-8.10 [facility] Comment on above: Performed By: #### C DP ####[place], [place] [address])[phone] Director: Ramiro Mark MD Basophils/100 WBC (Bld) 0 % Normal 0-2 [facility] Comment on above: Performed By: #### C DP ####[place], [place] [address])[phone] Director: Ramiro Mark MD Eosinophils/100 WBC (Bld) 0 % Low 1-4 [facility] Comment on above: Performed By: #### C DP ####[address] [id number] Director: Ramiro Mark MD Erythrocyte distribution width (RBC) [Ratio] 13.1 % Normal 11.8-14.4 [facility] Comment on above: Performed By: #### C DP ####[place], [place] [address])[phone] Director: Ramiro Mark MD Hematocrit (Bld) [Volume fraction] 26.1 % Low 40.7-50.3 [facility] Comment on above: Performed By: #### C DP ####[place], [place] [address])[phone] Director: Ramiro Mark MD Hemoglobin (Bld) [Mass/Vol] 8.8 g/dL Low 13.0-17.0 [facility] Comment on above: Performed By: #### C DP ####[address] [address])[phone] Director: Ramiro Mark MD Immature granulocytes/100 WBC (Bld) 1 % High 0 [facility] Comment on above: Performed By: #### C DP ####[place], [place] [address])[phone] Director: Ramiro Mark MD Lymphocytes (Bld) [#/Vol] 1.42 10*3/uL Normal 1.10-3.70 [facility] Comment on above: Performed By: #### C DP ####[address] [address])[phone] Director: Ramiro Mark MD Lymphocytes/100 WBC (Bld) 8 % Low 24-43 [facility] Comment on above: Performed By: #### C DP ####[address] [phone])[phone] Director: Ramiro Mark MD MCH (RBC) [Entitic mass] 28.6 pg Normal 25.2-33.5 [facility] Comment on above: Performed By: #### C DP ####[address] [id number])[phone] Director: Ramiro Mark MD MCHC (RBC) [Mass/Vol] 33.7 g/dL Normal 28.4-34.8 [facility] Comment on above: Performed By: #### C DP ####[address] [phone] Director: Ramiro Mark MD MCV (RBC) [Entitic vol] 84.7 fL Normal 82.6-102.9 [facility] Comment on above: Performed By: #### C DP ####[address] [phone] Director: Ramiro Mark MD Monocytes (Bld) [#/Vol] 0.81 10*3/uL Normal 0.10-1.20 [facility] Comment on above: Performed By: #### C DP ####[address] [id number])[phone] Director: Ramiro Mark MD Monocytes/100 WBC (Bld) 5 % Normal 3-12 [facility] Comment on above: Performed By: #### C DP ####[address] [phone] Director: Ramiro Mark MD Neutrophil (Seg) 86 % High 36-65 [facility] Comment on above: Performed By: #### C DP ####[address] [id number])[phone] Director: Ramiro Mark MD NRBC Automated 0.0 per 100 WBC Normal 0.0 [facility] Comment on above: Performed By: #### C DP ####[address] [phone] Director: Ramiro Mark MD Platelet mean volume (Bld) [Entitic vol] 10.6 fL Normal 8.1-13.5 [facility] Comment on above: Performed By: #### C DP ####[address] [address])[phone] Director: Ramiro Mark MD Platelets (Bld) [#/Vol] 214 10*3/uL Normal 138-453 [facility] Comment on above: Performed By: #### C DP ####[place], [place] [address])[phone] Director: Ramiro Mark MD RBC (Bld) [#/Vol] 3.08 10*6/uL Low 4.21-5.77 [facility] Comment on above: Performed By: #### C DP ####[place] [address]([facility])[phone] Director: Ramiro Mark MD WBC (Bld) [#/Vol] 17.6 10*3/uL High 3.5-11.3 [facility] Comment on above: Performed By: #### C DP ####[place], [place] [address])[phone] Director: Ramiro Mark MD Calcium, Ionicon 09-29-2024 Calcium [Moles/Vol] 1.20 mmol/L Normal 1.13-1.33 [facility] Comment on above: Performed By: #### I OCAL ####[address] [phone] Director: Ramiro Mark MD Calcium, Ionizedon Calcium.ionized (Bld) [Moles/Vol] 1.20 mmol/L 1.13 - 1.33 mmol/L [facility] Cardiac echo study Procedure Ordered By: Kika Raymond on 09-29-2024 Ao Root Index 1.71 cm/m2 [email or web address] Phone: Aortic Root 3.4 cm [email or web address] Phone: AV Area by Peak Velocity 2.6 cm2 [email or web address] Phone: AV Area by VTI 2.6 cm2 [employer] Phone: AV Mean Gradient 4 mmHg [employer] Phone: AV Mean Velocity 0.9 m/s [employer] Phone: AV Peak Gradient 7 mmHg [employer] Phone: AV Peak Velocity 1.4 m/s [employer] Phone: AV Velocity Ratio 0.71 [employer] Phone: AV VTI 26.7 cm [email or web address] Phone: EZIO/BSA Peak Velocity 1.3 cm2/m2 [email or web address] Phone: EZIO/BSA VTI 1.3 cm2/m2 [email or web address] Phone: Body surface area Derived from formula 2 m2 [email or web address] Phone: E/E' Lateral 8.87 [email or web address] Phone: E/E' Ratio (Averaged) 9.20 [email or web address] Phone: E/E' Septal 9.54 [email or web address] Phone: EF BP 65 % 55 - 100 % [email or web address] Phone: Fractional Shortening 2D 43 % 28 - 44 % [employer] Phone: Global Longitudinal Strain -16.7 % [employer] Phone: Interpretation and review of laboratory results Abnormal [employer] Phone: IVSd 1.5 cm Abnormal 0.6 - 1.0 cm [email or web address] Phone: LA Area 2C 15.4 cm2 [employer] Phone: LA Area 4C 15.4 cm2 [employer] Phone: LA Diameter 2.9 cm [email or web address] Phone: LA Major [place] 4.7 cm [email or web address] Phone: LA Minor [place] 5.1 cm [email or web address] Phone: LA Size Index 1.46 cm/m2 [employer] Phone: LA Volume BP 36 mL 18 - 58 mL [employer] Phone: LA Volume Index BP 18 ml/m2 16 - 34 ml/m2 [employer] Phone: LA Volume Index MOD A2C 17 ml/m2 16 - 34 ml/m2 [employer] Work Phone: LA Volume Index MOD A4C 19 ml/m2 16 - 34 ml/m2 [employer] Work Phone: LA Volume MOD A2C 33 mL 18 - 58 mL [facility] Work Phone: LA Volume MOD A4C 37 mL 18 - 58 mL [facility] Work Phone: LA/AO Root Ratio 0.85 [facility] [employer] Work Phone: LV E' Lateral Velocity 9.36 cm/s [employer] Work Phone: LV E' Septal Velocity 8.70 cm/s [employer] Work Phone: LV EDV A2C 65 mL [employer] Work Phone: LV EDV A4C 80 mL [employer] Work Phone: LV EDV Index A2C 33 mL/m2 [employer] Work Phone: LV EDV Index A4C 40 mL/m2 [employer] Work Phone: LV Ejection Fraction A2C 66 % [employer] Work Phone: LV Ejection Fraction A4C 67 % [employer] Work Phone: LV ESV A2C 22 mL [employer] Work Phone: LV ESV A4C 27 mL [employer] Work Phone: LV ESV Index A2C 11 mL/m2 [employer] Work Phone: LV ESV Index A4C 14 mL/m2 [employer] Work Phone: LV Mass 2D 220.7 g 88 - 224 g [employer] Work Phone: LV Mass 2D Index 110.9 g/m2 49 - 115 g/m2 [employer] Work Phone: LV RWT Ratio 0.70 [employer] Work Phone: LVIDd 4.0 cm Abnormal 4.2 - 5.9 cm [employer] Work Phone: LVIDd Index 2.01 cm/m2 [employer] Work Phone: LVIDs 2.3 cm [employer] Phone: LVIDs Index 1.16 cm/m2 [employer] Work Phone: LVOT Area 3.5 cm2 [employer] Phone: LVOT Diameter 2.1 cm [employer] Work Phone: LVOT Mean Gradient 2 mmHg [facility] [employer] Work Phone: LVOT Peak Gradient 4 mmHg [facility] [employer] [employer] Work Phone: LVOT Peak Velocity 1.0 m/s [facility] [employer] Work Phone: LVOT Stroke Volume Index 34.8 mL/m2 [facility] [employer] Work Phone: LVOT SV 69.2 ml [facility] [employer] Work Phone: LVOT VTI 20.0 cm [facility] [employer] Work Phone: LVOT:AV VTI Index 0.75 [facility] [employer] Work Phone: LVPWd 1.4 cm Abnormal 0.6 - 1.0 cm [facility] [employer] Work Phone: MV A Velocity 0.75 m/s [employer] Work Phone: MV Area by VTI 3.0 cm2 [place] [facility] [employer] Work Phone: MV E Velocity 0.83 m/s [employer] Work Phone: MV E Wave Deceleration Time 134.0 ms [employer] Work Phone: MV E/A 1.11 [employer] Work Phone: MV Max Velocity 1.1 m/s [facility] [employer] Work Phone: MV Mean Gradient 2 mmHg [facility] [employer] Work Phone: MV Mean Velocity 0.7 m/s [facility] [employer] Work Phone: MV Peak Gradient 5 mmHg [facility] urs [employer] Work Phone: MV VTI 23.2 cm [facility] [employer] Work Phone: MV:LVOT VTI Index 1.16 [facility] ours [employer] Work Phone: PV Max Velocity 1.1 m/s [facility] vasu [employer] Work Phone: PV Peak Gradient 5 mmHg [facility] meño [employer] Work Phone: RA Area 4C 12.4 cm2 [facility] [place] [employer] Work Phone: RA Volume 24 ml [facility] [employer] Work Phone: RA Volume Index A4C 12 mL/m2 [facility] ecours [employer] Work Phone: RV Basal Dimension 2.9 cm [facility] [employer] Work Phone: RV Free Wall Peak S' 13.1 cm/s [facility] [place] [employer] Work Phone: TAPSE 3.0 cm 1.7 cm [facility] [employer] Work Phone: [facility] [employer] Work Phone: Cardiac echo study Procedure on 09-29-2024 [facility] CV CPACS Radiology Study observation (narrative) [employer] EKG 12 Leadon 09-29-2024 Atrial Rate 111 BPM [employer] P [place] 79 degrees [employer] P-R Interval 166 ms [employer] Q-T Interval 336 ms [employer] QRS Duration 82 ms [employer] QTc Calculation (Bazett) 456 ms [employer] R [place] 68 degrees [employer] T [place] 68 degrees [employer] Ventricular Rate 111 BPM [facility] [employer] [facility]PN STV MUSE [employer] Glucose (POC)on 09-29-2024 Glucose [Mass/Vol] 189 mg/dL High 74-100 [facility] Glucose,Whole Bloodon 2023 Glucose [Mass/Vol] 203 mg/dL High 75-110 [facility] Glucose [Mass/Vol] 289 mg/dL High 75-110 [facility] Glucose [Mass/Vol] 227 mg/dL High 75-110 [facility] Glucose [Mass/Vol] 229 mg/dL High 75-110 [facility] Glucose [Mass/Vol] 149 mg/dL High 75-110 [facility] Glucose [Mass/Vol] 187 mg/dL High 75-110 [facility] Glucose [Mass/Vol] 187 mg/dL High 75-110 [facility] Glucose [Mass/Vol] 214 mg/dL High 75-110 [facility] Glucose [Mass/Vol] 222 mg/dL High 75-110 [facility] Glucose [Mass/Vol] 205 mg/dL High 75-110 [facility] Glucose [Mass/Vol] 140 mg/dL High 75-110 [facility] Heparin Anti-Xaon 09-29-2024 Heparin Anti-Xa 0.51 IU/L [facility] Comment on above: Result Comment: This test has not been validated or calibrated for therapies other than unfractionated heparin.Interpretation of the result in relation to other therapies must be done with caution and within clinical context. Performed By: #### P HO, MG, BMP, HEPXA ####[employer] [address] [place], [place] [id number] Lab Director: Ramiro Mark MD Heparin Anti-Xa 0.28 IU/L [facility] Comment on above: Result Comment: This test has not been validated or calibrated for therapies other than unfractionated heparin.Interpretation of the result in relation to other therapies must be done with caution and within clinical context. Performed By: #### H EPXA ####[facility] [address] [place] [address] Lab Director: Ramiro Mark MD Heparin Anti-Xa 0.44 IU/L [facility] Comment on above: Result Comment: This test has not been validated or calibrated for therapies other than unfractionated heparin.Interpretation of the result in relation to other therapies must be done with caution and within clinical context. Performed By: #### H EPXA ####[facility] [address] [place] [address] Lab Director: Ramiro Mark MD Lactic Acid (POC)on 09-29-20 24 Lactate [Moles/Vol] 1.4 mmol/L High 0.56-1.39 [facility] Lactic Acid, POCon 4 POC Lactic Acid 1.4 mmol/L High 0.56 - 1.39 mmol/L [facility] MRSA DNA Probe, Nasalon 09-16 MRSA, DNA, Nasal Negative NEGATIVE [facility] Specimen Description .NASAL SWAB [facility] MRSA, DNA, Nasalon MRSA, DNA, Nasal Negative Normal NEG [facility] Comment on above: Result Comment: NEGA TIVE: MRSA DNA not detected by nucleic acid amplification.Results should be used as an adjunct to nosocomial control efforts to identify patients needing enhanced precautions.The test is not intended to identify patients with staphylococcal infections. Results should not be used to guide or monitor treatment for MRSA infections. Performed By: #### M RSANO ####[facility]dx[address] [place] [address] Lab Director: Ramiro Mark MD Magnesiumon 09-29-2024 Magnesium [Mass/Vol] 2.2 mg/dL 1.6 - 2 .6 mg/dL [facility] Magnesium [Mass/Vol] 2.2 mg/dL Normal 1.6-2.6 [facility] Comment on above: Performed By: #### P HO, MG, BMP, HEPXA ####[employer] [place] [address] Lab Director: Ramiro Mark MD Magnesium [Mass/Vol] 1.6 mg/dL Normal 1.6-2.6 [facility] Comment on above: Performed By: #### P HEP, BMP, ANAX, PE, FKLLC, CHELO, MG ####[employer] [place] [address] Lab Director: Ramiro Mark MD Magnesium [Mass/Vol] 1.8 mg/dL 1.6 - 2 .6 mg/dL [facility] Magnesium [Mass/Vol] 1.8 mg/dL Normal 1.6-2.6 [facility] Comment on above: Performed By: #### P MG CONNOR, [facility] ####[facility] [address] [place] [address] Lab Director: Ramiro Mark MD No Panel Informationon 09-29 [facility] Interpretation and review of laboratory results Abnormal [facility] POC Glucose Fingerstickon Glucose [Mass/Vol] 203 mg/dL High 75 - 110 mg/dL [facility] Interpretation and review of laboratory results Abnormal [facility] Glucose [Mass/Vol] 289 mg/dL High 75 - 110 mg/dL [facility] Interpretation and review of laboratory results Abnormal [facility] Glucose [Mass/Vol] 227 mg/dL High 75 - 110 mg/dL [facility] Interpretation and review of laboratory results Abnormal [facility] Glucose [Mass/Vol] 229 mg/dL High 75 - 110 mg/dL [facility] Interpretation and review of laboratory results Abnormal [facility] Glucose [Mass/Vol] 149 mg/dL High 75 - 110 mg/dL [facility] Interpretation and review of laboratory results Abnormal [facility] Glucose [Mass/Vol] 187 mg/dL High 75 - 110 mg/dL [facility] Interpretation and review of laboratory results Abnormal [facility] Glucose [Mass/Vol] 187 mg/dL High 75 - 110 mg/dL [facility] Interpretation and review of laboratory results Abnormal [facility] Glucose [Mass/Vol] 214 mg/dL High 75 - 110 mg/dL [facility] Interpretation and review of laboratory results Abnormal [facility] Glucose [Mass/Vol] 222 mg/dL High 75 - 110 mg/dL [facility] Interpretation and review of laboratory results Abnormal [facility] Glucose [Mass/Vol] 205 mg/dL High 75 - 110 mg/dL [facility] Interpretation and review of laboratory results Abnormal [facility] Glucose [Mass/Vol] 140 mg/dL High 75 - 110 mg/dL [facility] Interpretation and review of laboratory results Abnormal [facility] POCT Glucoseon 09-29-2024 Glucose [Mass/Vol] 189 mg/dL High 74 - 100 mg/dL [facility] Phosphoruson 09-29-2024 Phosphate [Mass/Vol] 4.5 mg/dL 2.5 - 4 .5 mg/dL [facility] Phosphate [Mass/Vol] 3.4 mg/dL 2.5 - 4 .5 mg/dL [facility] Phosphate [Mass/Vol] 4.2 mg/dL 2.5 - 4 .5 mg/dL [facility] Phosphorus, Inorg.on 024 Phosphorus, Inorg. 4.5 mg/dL Normal 2.5-4.5 [facility] Comment on above: Performed By: #### P HO, MG, BMP, HEPXA ####[facility] [address] [place], [place] [id number] lab Director: Ramiro Mark MD Phosphorus, Inorg. 3.4 mg/dL Normal 2.5-4.5 [facility] Comment on above: Performed By: #### P HEP, BMP, ANAX, PE, FKLLC, CHELO, MG ####[facility] [address] [place], [place] [id number] lab Director: Ramiro Mark MD Phosphorus, Inorg. 4.2 mg/dL Normal 2.5-4.5 [facility] Comment on above: Performed By: #### P HO, MG, BMP ####[facility] [address] [place], [place] [id number] Lab Director: Ramiro Mark MD US Kidneyon 09-29-2024 MHPN RIS CONSOLIDATED PN RIS CONSOLIDATED [facility] KidneyOrdered By: Isai pal on 09-29-2024 [facility] Work Phone: US RENAL COMPLETEon 09-29-20 US RENAL COMPLETE Normal [facility] APTTon 09-28-2024 aPTT Coag (Bld) [Time] 20.2 s Low [facility] Interpretation and review of laboratory results Abnormal [facility] aPTT Coag (Bld) [Time] 20.2 s Low 23.0-36.5 [facility] Comment on above: Result Comment: IV H eparin Therapy Range:66.0-92.0 sec Performed By: #### H EPXA, PTT, CBC, PT ####[facility] [address] [place], [place] [id number] Lab Director: Ramiro Mark MD Ammoniaon 09-28-2024 Ammonia (P) [Moles/Vol] 27 umol/L - umol/L [facility] Ammonia (P) [Moles/Vol] 27 umol/L Normal [facility] Comment on above: Performed By: #### L ACTIC #### [facility] [address] [place] [address] B[employer] Machine Tender Starch Spraying: Ramiro Santillan MD Anti-Xa, Unfractionated Hepa rinon 09-28-2024 Anti-XA Unfrac Heparin <0.10 IU/L [facility] Arterial Bld Gas,POCon 09-28 Jody Test Positive [facility] FIO2 40.0 Normal [facility] HCO3 (Bld) [Moles/Vol] 25.6 mmol/L Normal 21.0-28.0 [facility] Oxygen saturation in Blood 99.7 % High 94.0-98.0 [facility] pCO2, Arterial 42.0 mm Hg Normal 35.0-48.0 [facility] pH, Arterial 7.394 Normal 7.350-7.450 [facility] pO2, Arterial 201.7 mm Hg High 83.0-108.0 [facility] Positive Base Excess (calc) 0.6 mmol/L Normal 0.0-3.0 [facility] Site Drawn Right Radial Artery Normal [facility] Arterial Blood Gas, POCon Jody Test Positive [facility] FIO2 40.0 [facility] HCO3 (Bld) [Moles/Vol] 25.6 mmol/L 21.0 - 28.0 mmol/L [facility] Interpretation and review of laboratory results Abnormal [facility] Oxygen saturation in Blood 99.7 % High 94.0 - 98.0 % [facility] POC pCO2 42.0 [facility] POC pH 7.394 7.350 - 7.450 [facility] POC PO2 201.7 High [facility] Positive Base Excess, Art 0.6 mmol/L 0.0 - 3.0 mmol/L [facility] Sample Site Right Radial Artery [facility] Arterial Blood Gaseson 09-28 Jody Test YES Normal [facility] Comment on above: Performed By: #### L ACTIC #### [facility] [address] [place] [address] B[employer] Machine Tender Starch Spraying: Ramiro Santillan MD Body Temp. 37.0 [facility] Comment on above: Performed By: #### L ACTIC #### [facility] [address] [place] [address] B[employer] Machine Tender Starch Spraying: Ramiro Santillan MD FIO2 21 [facility] Comment on above: Performed By: #### L ACTIC #### [facility] [address] [place] [address] B[employer] Machine Tender Starch Spraying: Ramiro Santillan MD HCO3 (Bld) [Moles/Vol] 20.6 mmol/L Low 22-26 M [facility] Comment on above: Performed By: #### L ACTIC #### [facility] [address] [place] [address] B[employer] Machine Tender Starch Spraying: Ramiro Santillan MD Negative Base Excess 3.7 mmol/L High 0.0-2.0 [facility] Comment on above: Performed By: #### L ACTIC #### [facility] [address] [place], [place] [id number] B[employer] Machine Tender Starch Spraying: Ramiro Santillan MD O2 Device/Flow/% ROOM AIR Normal [facility] Comment on above: Performed By: #### L ACTIC #### [facility] [address] [place] [address] B[employer] Machine Tender Starch Spraying: Ramiro Santillan MD Oxygen (Bld) [Partial pressure] 72.2 mm[Hg] Low 80.0-100.0 [facility] Comment on above: Performed By: #### L ACTIC #### [facility] [address] [place], [place] [phone] B[employer] Machine T[employer] Starch Spraying: Ramiro Santillan MD Oxygen saturation in Blood 94.5 % Low 95-98 [facility] Comment on above: Performed By: #### L ACTIC #### [facility] [address] [place], [place] [phone] B[employer] Machine T[employer] Starch Spraying: Ramiro Santillan MD pCO2 35.2 mmHg Normal 35-45 [facility] Comment on above: Performed By: #### L ACTIC #### [facility] [address] [place], [place] [phone] B[employer] Machine T[employer] Starch Spraying: Ramiro Santillan MD pCO2 Adj'd for Temp 35.2 Normal 35.0-45.0 [facility] Comment on above: Performed By: #### L ACTIC #### [facility] [address] [place] [address] B[employer] Machine T[employer] Starch Spraying: Ramiro Santillan MD pH (Bld) 7.385 [pH] Normal 7.35-7.45 [facility] Comment on above: Performed By: #### L ACTIC #### [facility] [address] [place] [address] B[employer] Machine T[employer] Starch Spraying: Ramiro Santillan MD pH Adjst'd for Temp. 7.385 Normal 7.350-7.450 [facility] Comment on above: Performed By: #### L ACTIC #### [facility] [address] [place] [address] Blow Machine Tender Starch Spraying: Ramiro Santillan MD pO2 Adjst'd for Temp 72.2 mmHg Low 80.0-100.0 [facility] Comment on above: Performed By: #### L ACTIC #### [address] [place] [address] B[employer] Machine Tender Starch Spraying: Ramiro Santillan MD Site Drawn Left Radial Artery Normal [facility] Comment on above: Performed By: #### L ACTIC #### [address] [place] [address] B[employer] Machine T[employer] Starch Spraying: Ramiro Santillan MD Basic Metab w/rfx MGon 09-28 Anion gap [Moles/Vol] 12 mmol/L Normal 9-16 [facility] Comment on above: Performed By: #### P RCAL, CRP, MYCM, GLYHGB, TROPI, SED, CDP, LACTIC, IOCAL, BMPX ####[facility] [address] [place], [place] [id number] Lab Director: Ramiro Mark MD#### AGLYCO ####[facility] [address] [place] [address] Lab Director: Wil Swanson MD Calcium [Mass/Vol] 8.5 mg/dL Low 8.6-10.4 [facility] Comment on above: Performed By: #### P RCAL, CRP, MYCM, GLYHGB, TROPI, SED, CDP, LACTIC, IOCAL, BMPX ####[facility] [address] [place] [address] Lab Director: Ramiro Mark MD#### AGLYCO ####[facility] [address] [place], [place] [id number] Lab Director: Wil Swanson MD Chloride [Moles/Vol] 103 mmol/L Normal 98-107 [facility] Comment on above: Performed By: #### P RCAL, CRP, MYCM, GLYHGB, TROPI, SED, CDP, LACTIC, IOCAL, BMPX ####[facility] [address] [place] [address] Lab Director: Ramiro Mark MD#### AGLYCO ####[facility] [address] [place] [id number] Lab Director: Wil Swanson MD CO2 [Moles/Vol] 22 mmol/L Normal 20-31 [facility] Comment on above: Performed By: #### P RCAL, CRP, MYCM, GLYHGB, TROPI, SED, CDP, LACTIC, IOCAL, BMPX ####[facility] [address] [place] [address] Lab Director: Ramiro Mark MD#### AGLYCO ####[facility] [address] [place] [id number] Lab Director: Wil Swanson MD Creatinine [Mass/Vol] 2.3 mg/dL High 0.7-1.2 [facility] Comment on above: Performed By: #### P RCAL, CRP, MYCM, GLYHGB, TROPI, SED, CDP, LACTIC, IOCAL, BMPX ####[facility] [address] [place] [address] Lab Director: Ramiro Mark MD#### AGLYCO ####[facility] [address] [place] [address] Lab Director: Wil Swanson MD GFR/1.73 sq M.predicted among non-blacks MDRD (S/P/Bld) [Vol rate/Area] 34 mL/min/{1.73_m2} Low >60 [facility] Comment on above: Result Comment: Thes e results are not intended for use in patients <18 years of age.eGFR results are calculated without a race factor using the 2020 CKD-EPI equation.Careful clinical correlation is recommended, particularly when comparing to results calculated using previous equations.The CKD-EPI equation is less accurate in patients with extremes of muscle mass, extra-renal metabolism of creatine, excessive creatine ingestion, or following therapy that affects renal tubular secretion. Performed By: #### P RCAL, CRP, MYCM, GLYHGB, TROPI, SED, CDP, LACTIC, IOCAL, BMPX ####[place] [address] Lab Director: Ramiro Mark MD#### AGLYCO ####[facility] [address] [place] [id number] Lab Director: Wil Swanson MD Glucose [Mass/Vol] 316 mg/dL High 74-99 [facility] Comment on above: Performed By: #### P RCAL, CRP, MYCM, GLYHGB, TROPI, SED, CDP, LACTIC, IOCAL, BMPX ####[facility] [address] [place] [address] Lab Director: Ramiro Mark MD#### AGLYCO ####[facility] [address] [place] [id number] Lab Director: Wil Swanson MD Potassium [Moles/Vol] 4.2 mmol/L Normal 3.7-5.3 [facility] Comment on above: Performed By: #### P RCAL, CRP, MYCM, GLYHGB, TROPI, SED, CDP, LACTIC, IOCAL, BMPX ####[facility] [address] [place] [address] Lab Director: Ramiro Mark MD#### AGLYCO ####[facility] [address] [place], [place] [id number] lab Director: Wil Swanson MD Sodium [Moles/Vol] 137 mmol/L Normal 136-145 [facility] Comment on above: Performed By: #### P RCAL, CRP, MYCM, GLYHGB, TROPI, SED, CDP, LACTIC, IOCAL, BMPX ####[facility] Xg[address]zmymdjoi[address] [place], [place] 1886[address] Lab Director: Ramiro Mark MD#### AGLYCO ####[facility] [address] [place] [address] lab Director: Wil Swanson MD Urea nitrogen [Mass/Vol] 41 mg/dL High 6-20 [facility] Comment on above: Performed By: #### P RCAL, CRP, MYCM, GLYHGB, TROPI, SED, CDP, LACTIC, IOCAL, BMPX ####[facility] [address] [place] [address] lab Director: Ramiro Mark MD#### AGLYCO ####[facility] [address] [place] [id number] Lab Director: Wil Swanson MD Basic Metabolic Panel 12- Anion gap [Moles/Vol] 11 mmol/L 9 - 16 mmol/L [facility] Calcium [Mass/Vol] 7.6 mg/dL Low 8.6 - 10. 4 mg/dL [facility] Chloride [Moles/Vol] 102 mmol/L 98 - 10 7 mmol/L [facility] CO2 [Moles/Vol] 21 mmol/L 20 - 31 mmol/L [facility] Creatinine [Mass/Vol] 2.2 mg/dL High 0.7 - 1.2 mg/dL [facility] Est, Glom Filt Rate 36 Low - PINF [facility] Glucose [Mass/Vol] 415 mg/dL Critically high 74 - 9 9 mg/dL [facility] Interpretation and review of laboratory results Abnormal [facility] Potassium [Moles/Vol] 3.8 mmol/L 3.7 - 5.3 mmol/L [facility] Sodium [Moles/Vol] 134 mmol/L Low 136 - 145 mmol/L [facility] Urea nitrogen [Mass/Vol] 37 mg/dL High 6 - 20 mg/dL [facility] Anion gap [Moles/Vol] 10 mmol/L 9 - 16 mmol/L [facility] Calcium [Mass/Vol] 8.5 mg/dL Low 8.6 - 10. 4 mg/dL [facility] Chloride [Moles/Vol] 104 mmol/L 98 - 10 7 mmol/L [facility] CO2 [Moles/Vol] 22 mmol/L 20 - 31 mmol/L [facility] Creatinine [Mass/Vol] 2.3 mg/dL High 0.7 - 1.2 mg/dL [facility] Est, Glom Filt Rate 34 Low - PINF [facility] Glucose [Mass/Vol] 241 mg/dL High 74 - 99 mg/dL [facility] Potassium [Moles/Vol] 3.9 mmol/L 3.7 - 5.3 mmol/L [facility] Sodium [Moles/Vol] 136 mmol/L 136 - 145 mmol/L [facility] Urea nitrogen [Mass/Vol] 40 mg/dL High 6 - 20 mg/dL [facility] Basic Metabolic Panel w/ Ref jose to MGon 09-28-2024 Anion gap [Moles/Vol] 12 mmol/L 9 - 16 mmol/L [facility] Calcium [Mass/Vol] 8.5 mg/dL Low 8.6 - 10. 4 mg/dL [facility] Chloride [Moles/Vol] 103 mmol/L 98 - 10 7 mmol/L [facility] CO2 [Moles/Vol] 22 mmol/L 20 - 31 mmol/L [facility] Creatinine [Mass/Vol] 2.3 mg/dL High 0.7 - 1.2 mg/dL [facility] Est, Glom Filt Rate 34 Low - PINF [facility] Glucose [Mass/Vol] 316 mg/dL High 74 - 99 mg/dL [facility] Potassium [Moles/Vol] 4.2 mmol/L 3.7 - 5.3 mmol/L [facility] Sodium [Moles/Vol] 137 mmol/L 136 - 145 mmol/L [facility] Urea nitrogen [Mass/Vol] 41 mg/dL High 6 - 20 mg/dL [facility] Basic Metabolic Profon 09-28 Anion gap [Moles/Vol] 11 mmol/L Normal 9-16 [facility] Comment on above: Performed By: #### P HO, MG, BMP, LACTIC ####[facility] [address] [place], [place] [id number] Lab Director: Ramiro Mark MD Calcium [Mass/Vol] 7.6 mg/dL Low 8.6-10.4 [facility] Comment on above: Performed By: #### P HO, MG, BMP, LACTIC ####[facility] [address] [place] [address] Lab Director: Ramiro Mark MD Chloride [Moles/Vol] 102 mmol/L Normal 98-107 [facility] Comment on above: Performed By: #### P HO, MG, BMP, LACTIC ####[facility] [address]igs12[address] [place] [address] Lab Director: Ramiro Mark MD CO2 [Moles/Vol] 21 mmol/L Normal 20-31 [facility] Comment on above: Performed By: #### P HO, MG, BMP, LACTIC ####[facility] [address]tmhcqspj[address] [place] [address] Lab Director: Ramiro Mark MD Creatinine [Mass/Vol] 2.2 mg/dL High 0.7-1.2 [facility] Comment on above: Performed By: #### P HO, MG, BMP, LACTIC ####[facility] [address] [place] [address] Lab Director: Ramiro Mark MD GFR/1.73 sq M.predicted among non-blacks MDRD (S/P/Bld) [Vol rate/Area] 36 mL/min/{1.73_m2} Low >60 [facility] Comment on above: Result Comment: Thes e results are not intended for use in patients <18 years of age.eGFR results are calculated without a race factor using the 2020 CKD-EPI equation.Careful clinical correlation is recommended, particularly when comparing to results calculated using previous equations.The CKD-EPI equation is less accurate in patients with extremes of muscle mass, extra-renal metabolism of creatine, excessive creatine ingestion, or following therapy that affects renal tubular secretion. Performed By: #### P HO, MG, BMP, LACTIC ####[facility] [address] [place] [address])[phone] Director: Ramiro Mark MD Glucose [Mass/Vol] 415 mg/dL Critically high 74-[address] [facility] Comment on above: Performed By: #### P HO, MG, BMP, LACTIC ####[facility] [address] [place] [address])[phone] Director: Ramiro Mark MD Potassium [Moles/Vol] 3.8 mmol/L Normal 3.7-5.3 [facility] Comment on above: Performed By: #### P HO, MG, BMP, LACTIC ####[facility] [address] [place] [address] Lab Director: Ramiro Mark MD Sodium [Moles/Vol] 134 mmol/L Low 136-145 [facility] Comment on above: Performed By: #### P HO, MG, BMP, LACTIC ####[facility] [address] [place] [address] Lab Director: Ramiro Mark MD Urea nitrogen [Mass/Vol] 37 mg/dL High 6-20 [facility] Comment on above: Performed By: #### P HO, MG, BMP, LACTIC ####[facility] J[address] [place], [place] [address])[phone] Director: Ramiro Mark MD Anion gap [Moles/Vol] 10 mmol/L Normal 9-16 [facility] Comment on above: Performed By: #### P HO, MG, BMP, TROPI, LACTIC ####[facility] [address] [place], [place] [address])[phone] Director: Ramiro Mark MD Calcium [Mass/Vol] 8.5 mg/dL Low 8.6-10.4 [facility] Comment on above: Performed By: #### P HO, MG, BMP, TROPI, LACTIC ####[address] [address])[phone] Director: Ramiro Mark MD Chloride [Moles/Vol] 104 mmol/L Normal 98-107 [facility] Comment on above: Performed By: #### P HO, MG, BMP, TROPI, LACTIC ####[facility] [address] [place], [place] [id number])[phone] Director: Ramiro Mark MD CO2 [Moles/Vol] 22 mmol/L Normal 20-31 [facility] Comment on above: Performed By: #### P HO, MG, BMP, TROPI, LACTIC ####[facility] [address]onb[address] [place], [place] [address])[phone] Director: Ramiro Mark MD Creatinine [Mass/Vol] 2.3 mg/dL High 0.7-1.2 [facility] Comment on above: Performed By: #### P HO, MG, BMP, TROPI, LACTIC ####[facility] [address]qfxbq[address] [place], [place] [address])[phone] Director: Ramiro Mark MD GFR/1.73 sq M.predicted among non-blacks MDRD (S/P/Bld) [Vol rate/Area] 34 mL/min/{1.73_m2} Low >60 [facility] Comment on above: Result Comment: Thes e results are not intended for use in patients <18 years of age.eGFR results are calculated without a race factor using the 2020 CKD-EPI equation.Careful clinical correlation is recommended, particularly when comparing to results calculated using previous equations.The CKD-EPI equation is less accurate in patients with extremes of muscle mass, extra-renal metabolism of creatine, excessive creatine ingestion, or following therapy that affects renal tubular secretion. Performed By: #### P HO, MG, BMP, TROPI, LACTIC ####[facility] [address] [place] [address] Lab Director: Ramiro Mark MD Glucose [Mass/Vol] 241 mg/dL High 74-99 [facility] Comment on above: Performed By: #### P HO, MG, BMP, TROPI, LACTIC ####[facility] [address] [place] [address] Lab Director: Ramiro Mark MD Potassium [Moles/Vol] 3.9 mmol/L Normal 3.7-5.3 [facility] Comment on above: Result Comment: Spec imen hemolysis has exceeded the interference as defined by Jaime. Value may be falsely increased. Suggest recollection if clinically indicated. Performed By: #### P HO, MG, BMP, TROPI, LACTIC ####[facility] [address] [place] [address] Lab Director: Ramiro Mark MD Sodium [Moles/Vol] 136 mmol/L Normal 136-145 [facility] Comment on above: Performed By: #### P HO, MG, BMP, TROPI, LACTIC ####[facility] [address]ankt[address]19 [place] [address] Lab Director: Ramiro Mark MD Urea nitrogen [Mass/Vol] 40 mg/dL High 6-20 [facility] Comment on above: Performed By: #### P HO, MG, BMP, TROPI, LACTIC ####[facility] [place] [address] Lab Director: Ramiro Mark MD GFR/1.73 sq M.predicted among non-blacks MDRD (S/P/Bld) [Vol rate/Area] 56 mL/min/{1.73_m2} Low >60 [facility] Comment on above: Result Comment: These [...] renal tubular secretion. Performed By: #### B MP #### [facility] [address] [place] [address] [place] [address] Blow Machine Tender Starch Spraying: Ramiro Santillan MD Anion gap [Moles/Vol] 15 mmol/L Normal 9-16 [facility] Comment on above: Performed By: #### B MP #### [facility] [address] [place] [address] Blow Machine Tender Starch Spraying: Ramiro Santillan MD BUN/CRE Ratio 22 High 9-20 [facility] Comment on above: Performed By: #### B MP #### [facility] [address] [place] [address] [place] [address] Blow Machine Tender Starch Spraying: Ramiro Santillan MD Calcium [Mass/Vol] 6.1 mg/dL Low 8.6-10.4 [facility] Comment on above: Performed By: #### B MP #### [facility] [address] [place] [address] Blow Machine Tender Starch Spraying: Ramiro Santillan MD Chloride [Moles/Vol] 99 mmol/L Normal 98-107 [facility] Comment on above: Performed By: #### B MP #### [facility] [address] [place] [address] [address] [phone] B[employer] Machine Tender Starch Spraying: Ramiro Santillan MD CO2 [Moles/Vol] 15 mmol/L Low 20-31 [facility] Comment on above: Performed By: #### B MP #### [facility] [address] [place] [phone] B[employer] Machine T[employer] Starch Spraying: Ramiro Santillan MD Creatinine [Mass/Vol] 1.5 mg/dL High 0.70-1.20 [facility] Comment on above: Performed By: #### B MP #### [facility] [address] [place] [phone] B[employer] T[employer] Starch Spraying: Ramiro Santillan MD Glucose [Mass/Vol] 657 mg/dL Critically high 74-99 [facility] Comment on above: Performed By: #### B MP #### [facility] [address] [place], [place] [id number] B[employer] Machine Tender Starch Spraying: Ramiro Santillan MD Potassium [Moles/Vol] 3.6 mmol/L Low 3.7-5.3 [facility] Comment on above: Result Comment: Spec imen hemolysis has exceeded the interference as defined by Jaime. Value may be falsely increased. Suggest recollection if clinically indicated. Performed By: #### B MP #### [facility] [address] [place], [place] [id number] B[employer] T[employer] Starch Spraying: Ramiro Santillan MD Sodium [Moles/Vol] 129 mmol/L Low 136-145 [facility] Comment on above: Performed By: #### B MP #### [facility] [facility] [address] [place], [place] [id number] Blow Machine Tender Starch Spraying: Ramiro Santillan MD Urea nitrogen [Mass/Vol] 33 mg/dL High 6-20 [facility] Comment on above: Performed By: #### B MP #### [facility] [address] [place], [place] [id number] Blow Machine Tender Starch Spraying: Ramiro Santillan MD Beta Hydroxybutyrateon 09-28 Beta Hydroxybutyrate 2.64 mmol/L High 0.02-0.27 [facility] Comment on above: Performed By: #### B H #### [facility] [address] [place] [address] Blow Machine Tender Starch Spraying: Ramiro Santillan MD Beta-Hydroxybutyrateon 09-28 Beta hydroxybutyrate [Mass/Vol] 2.64 mmol/L High 0.02 - 0.27 mmol/L [facility] Interpretation and review of laboratory results Abnormal [facility] Blood Gas, Arterialon 2023 Arterial patency Wrist artery --pre arterial puncture YES [facility] Body site Left Radial Artery [facility] HCO3 (Bld) [Moles/Vol] 20.6 mmol/L Low 22 - 26 mmol/L [facility] Interpretation and review of laboratory results Abnormal [facility] Negative Base Excess, Art 3.7 mmol/L High 0.0 - 2.0 mmol/L [facility] Oxygen gas flow Oxygen delivery system ROOM AIR [facility] Oxygen saturation in Blood 94.5 % Low 95 - 98 % [facility] Oxygen/Inspired gas Respiratory system --on ventilator 21 [facility] pCO2, Art, Temp Adj 35.2 35.0 - 45.0 [facility] pCO2, Arterial 35.2 [facility] pH, Art, Temp Adj 7.385 7.350 - 7.450 [facility] pH, Arterial 7.385 7.35 - 7.45 [facility] pO2, Art, Temp Adj 72.2 Low [facility] pO2, Arterial 72.2 Low [facility] Blood Gas, Venouson 09-28-20 Arterial patency Wrist artery --pre arterial puncture NOT APPLICABLE [facility] HCO3 (Bld) [Moles/Vol] 21.0 mmol/L Low 24.0 - 30.0 mmol/L [facility] Interpretation and review of laboratory results Abnormal [facility] Negative Base Excess, Mc 4.3 mmol/L High 0.0 - 2.0 mmol/L [facility] Oxygen gas flow Oxygen delivery system VENTILATOR [facility] Oxygen saturation in Blood 99.0 % High 60.0 - 85.0 % [facility] Oxygen/Inspired gas Respiratory system --on ventilator 35 [facility] pCO2, Mc 39.8 [facility] pCO2, Mc, Temp Adj 39.8 [facility] pH, Mc 7.341 7.32 - 7.42 [facility] pH, Mc, Temp Adj 7.341 7.320 - 7.420 [facility] PO2, Mc 164.8 High [facility] pO2, Mc, Temp Adj 164.8 High [facility] Se [facility]s [facility] Brain Natri. Peptideon 09-28 Natriuretic peptide B (Bld) [Mass/Vol] 964 pg/mL High 0-125 [facility] Comment on above: Performed By: #### C P, BNP, PT, CDP, LIP, TROPI #### [facility] [address] [place] [address] Blow Machine Tender Starch Spraying: Ramiro Santillan MD Brain Natriuretic Peptideon 09-28-2024 Natriuretic peptide B (Bld) [Mass/Vol] 964 pg/mL High 0 - 125 pg/mL [facility] C-Reactive Proteinon 024 CRP High sensitivity method [Mass/Vol] 8.9 mg/L High 0.0 - 5.0 mg/L [facility] CRP [Mass/Vol] 8.9 mg/L High 0.0-5.0 [facility] Comment on above: Performed By: #### P RCAL, CRP, MYCM, GLYHGB, TROPI, SED, CDP, LACTIC, IOCAL, BMPX ####[facility] [address] [place] [address] Lab Director: Ramiro Mark MD#### AGLYCO ####[facility] [address] [place] [address] Lab Director: Wil Swanson MD CBCon 09-28-2024 Erythrocyte distribution width (RBC) [Ratio] 13.0 % 11.8 - 14.4 % [facility] Hematocrit (Bld) [Volume fraction] 28.8 % Low 40.7 - 50.3 % [facility] Hemoglobin (Bld) [Mass/Vol] 9.5 g/dL Low 13.0 - 17.0 g/dL [facility] Interpretation and review of laboratory results Abnormal [facility] MCH (RBC) [Entitic mass] 28.5 pg 25.2 - 33.5 pg [facility] MCHC (RBC) [Mass/Vol] 33.0 g/dL 28.4 - 34.8 g/dL [facility] MCV (RBC) [Entitic vol] 86.5 fL 82.6 - 102.9 fL [facility] Nucleated RBC/100 WBC (Bld) [Ratio] 0.0 % 0.0 per 100 WBC [facility] Platelet mean volume (Bld) [Entitic vol] 10.4 fL 8.1 - 13.5 fL [facility] Platelets (Bld) [#/Vol] 226 10*3/uL [facility] RBC (Bld) [#/Vol] 3.33 10*6/uL Low 4.21 - 5.7 7 m/uL [facility] WBC other (Bld) [#/Vol] 17.2 High [facility] Erythrocyte distribution width (RBC) [Ratio] 13.0 % Normal 11.8-14.4 [facility] Comment on above: Performed By: #### H EPXA, PTT, CBC, PT ####[employer] [address] [place], [place] [id number] lab Director: Ramiro Mark MD Hematocrit (Bld) [Volume fraction] 28.8 % Low 40.7-50.3 [facility] Comment on above: Performed By: #### H EPXA, PTT, CBC, PT ####[employer] [address] [place] [address] Lab Director: Ramiro Mark MD Hemoglobin (Bld) [Mass/Vol] 9.5 g/dL Low 13.0-17.0 [facility] Comment on above: Performed By: #### H EPXA, PTT, CBC, PT ####[facility] [address] [place] [address] Lab Director: Ramiro Mark MD MCH (RBC) [Entitic mass] 28.5 pg Normal 25.2-33.5 [facility] Comment on above: Performed By: #### H EPXA, PTT, CBC, PT ####[facility] [address] [place] [address] Lab Director: Ramiro Mark MD MCHC (RBC) [Mass/Vol] 33.0 g/dL Normal 28.4-34.8 [facility] Comment on above: Performed By: #### H EPXA, PTT, CBC, PT ####[facility] [address] [place] [address] Lab Director: Ramiro Mark MD MCV (RBC) [Entitic vol] 86.5 fL Normal 82.6-102.9 [facility] Comment on above: Performed By: #### H EPXA, PTT, CBC, PT ####[facility] [address] [place] [address] Lab Director: Ramiro Mark MD NRBC Automated 0.0 per 100 WBC Normal 0.0 [facility] Comment on above: Performed By: #### H EPXA, PTT, CBC, PT ####[facility] [address] [place] [address] Lab Director: Ramiro Mark MD Platelet mean volume (Bld) [Entitic vol] 10.4 fL Normal 8.1-13.5 [facility] Comment on above: Performed By: #### H EPXA, PTT, CBC, PT ####[facility] [address] [place] [address] Lab Director: Ramiro Mark MD Platelets (Bld) [#/Vol] 226 10*3/uL Normal 138-453 [facility] Comment on above: Performed By: #### H EPXA, PTT, CBC, PT ####[facility] [address] [place] [address] Lab Director: Ramiro Mark MD RBC (Bld) [#/Vol] 3.33 10*6/uL Low 4.21-5.77 [facility] Comment on above: Performed By: #### H EPXA, PTT, CBC, PT ####[facility] [address] [place] [address] Lab Director: Ramiro Mark MD WBC (Bld) [#/Vol] 17.2 10*3/uL High 3.5-11.3 [facility] Comment on above: Performed By: #### H EPXA, PTT, CBC, PT ####[facility] [address] [place] [address] Lab Director: Ramiro Mark MD CBC with Auto Differentialon 09-28-2024 Basophils (Bld) [#/Vol] 0.06 10*3/uL [facility] Basophils/100 WBC (Bld) 0 % 0 - 2 % [facility] Eosinophils (Bld) [#/Vol] [facility] Eosinophils/100 WBC (Bld) 0 % Low 1 - 4 % [facility] Erythrocyte distribution width (RBC) [Ratio] 13.0 % 11.8 - 14.4 % [facility] Hematocrit (Bld) [Volume fraction] 27.4 % Low 40.7 - 50.3 % [facility] Hemoglobin (Bld) [Mass/Vol] 9.6 g/dL Low 13.0 - 17.0 g/dL [facility] Immature granulocytes (Bld) [#/Vol] 0.06 10*3/uL [facility] Immature granulocytes/100 WBC (Bld) 0 % 0 [facility] Interpretation and review of laboratory results Abnormal [facility] Lymphocytes/100 WBC (Bld) 5 % Low 24 - 43 % [facility] Lymphocytes/100 WBC (Bld) 0.78 % Low [facility] MCH (RBC) [Entitic mass] 28.7 pg 25.2 - 33.5 pg [facility] MCHC (RBC) [Mass/Vol] 35.0 g/dL High 28.4 - 34.8 g/dL [facility] MCV (RBC) [Entitic vol] 82.0 fL Low 82.6 - 102.9 fL [facility] Monocytes/100 WBC (Bld) 8 % 3 - 12 % [facility] Monocytes/100 WBC (Bld) 1.35 % High [facility] Neutrophils/100 WBC (Bld) 87 % High 36 - 65 % [facility] Nucleated RBC/100 WBC (Bld) [Ratio] 0.0 % 0.0 per 100 WBC [facility] SecIMNEXT [facility] Platelet mean volume (Bld) [Entitic vol] 10.5 fL 8.1 - 13.5 fL [facility] Platelets (Bld) [#/Vol] 240 10*3/uL [facility] RBC (Bld) [#/Vol] 3.34 10*6/uL Low 4.21 - 5.7 7 m/uL [facility] RBC (Bld) [#/Vol] MICROCYTOSIS PRESENT [facility] SecIMNEXT [facility] Segmented neutrophils/100 WBC (Bld) 14.81 % High [facility] WBC other (Bld) [#/Vol] 17.1 High [facility] Basophils (Bld) [#/Vol] 0.33 10*3/uL High [facility] Basophils/100 WBC (Bld) 2 % 0 - 2 % [facility] Eosinophils (Bld) [#/Vol] 0.00 10*3/uL [facility] SecIMNEXT [facility] Eosinophils/100 WBC (Bld) 0 % Low 1 - 4 % [facility] Erythrocyte distribution width (RBC) [Ratio] 12.8 % 11.8 - 14.4 % [facility] Hematocrit (Bld) [Volume fraction] 34.5 % Low 40.7 - 50.3 % [facility] Hemoglobin (Bld) [Mass/Vol] 12.1 g/dL Low 13.0 - 17.0 g/dL [facility] Immature granulocytes (Bld) [#/Vol] 0.00 10*3/uL [facility] Immature granulocytes/100 WBC (Bld) 0 % 0 [facility] Interpretation and review of laboratory results Abnormal [facility] Lymphocytes/100 WBC (Bld) 2 % Low 24 - 43 % [facility] Lymphocytes/100 WBC (Bld) 0.33 % Low [facility] MCH (RBC) [Entitic mass] 28.8 pg 25.2 - 33.5 pg [facility] MCHC (RBC) [Mass/Vol] 35.1 g/dL High 28.4 - 34.8 g/dL [facility] MCV (RBC) [Entitic vol] 82.1 fL Low 82.6 - 102.9 fL [facility] Monocytes/100 WBC (Bld) 2 % Low 3 - 12 % [facility] Monocytes/100 WBC (Bld) 0.33 % [facility] Morphology Everardo (Bld) [Interp] Normal [facility] Neutrophils/100 WBC (Bld) 94 % High 36 - 65 % [facility] Nucleated RBC/100 WBC (Bld) [Ratio] 0.0 % 0.0 per 100 WBC [facility] Platelet mean volume (Bld) [Entitic vol] 10.9 fL 8.1 - 13.5 fL [facility] Platelets (Bld) [#/Vol] 291 10*3/uL [facility] RBC (Bld) [#/Vol] 4.20 10*6/uL Low 4.21 - 5.7 7 m/uL [facility] Segmented neutrophils/100 WBC (Bld) 15.71 % High [facility] WBC other (Bld) [#/Vol] 16.7 High [facility] CBC with Diffon 09-28-2024 Abs. Basophil 0.06 k/uL Normal 0.00-0.20 [facility] Comment on above: Performed By: #### P RCAL, CRP, MYCM, GLYHGB, TROPI, SED, CDP, LACTIC, IOCAL, BMPX ####[facility] [address] [place] [address] Lab Director: Ramiro Mark MD#### AGLYCO ####[facility] [address] [place] [address] Lab Director: Wil Swanson MD Abs. Eosinophil <0.03 Normal 0.00-0.44 [facility] Comment on above: Performed By: #### P RCAL, CRP, MYCM, GLYHGB, TROPI, SED, CDP, LACTIC, IOCAL, BMPX ####[address] [address] Lab Director: Ramiro Mark MD#### AGLYCO ####[facility] [address] [place] [id number] lab Director: Wil Swanson MD Abs.Imm.Granulocyte 0.06 k/uL Normal 0.00-0.30 [facility] Comment on above: Performed By: #### P RCAL, CRP, MYCM, GLYHGB, TROPI, SED, CDP, LACTIC, IOCAL, BMPX ####[facility] [address] [place] [address] Lab Director: Ramiro Mark MD#### AGLYCO ####[facility] [address] [place], [place] [id number] Lab Director: Wil Swanson MD Abs.Neutrophil (Seg) 14.81 k/uL High 1.50-8.10 [facility] Comment on above: Performed By: #### P RCAL, CRP, MYCM, GLYHGB, TROPI, SED, CDP, LACTIC, IOCAL, BMPX ####[facility] [address] [place] [address] Lab Director: Ramiro Mark MD#### AGLYCO ####[facility] [address] [place] [id number] Lab Director: Wil Swanson MD Basophils/100 WBC (Bld) 0 % Normal 0-2 [facility] Comment on above: Performed By: #### P RCAL, CRP, MYCM, GLYHGB, TROPI, SED, CDP, LACTIC, IOCAL, BMPX ####[facility] [address] [place] [address] Lab Director: Ramiro Mark MD#### AGLYCO ####[facility] [address] [place] [phone] Lab Director: Wil Swanson MD Eosinophils/100 WBC (Bld) 0 % Low 1-4 [facility] Comment on above: Performed By: #### P RCAL, CRP, MYCM, GLYHGB, TROPI, SED, CDP, LACTIC, IOCAL, BMPX ####[facility] [address] [place] [address] Lab Director: Ramiro Mark MD#### AGLYCO ####[facility] [address] [place] [phone] Lab Director: Wil Swanson MD Erythrocyte distribution width (RBC) [Ratio] 13.0 % Normal 11.8-14.4 [facility] Comment on above: Performed By: #### P RCAL, CRP, MYCM, GLYHGB, TROPI, SED, CDP, LACTIC, IOCAL, BMPX ####[facility] [address] [place] [address] Lab Director: Ramiro Mark MD#### AGLYCO ####[facility] [address] [place] [id number] Lab Director: Wil Swanson MD Hematocrit (Bld) [Volume fraction] 27.4 % Low 40.7-50.3 [facility] Comment on above: Performed By: #### P RCAL, CRP, MYCM, GLYHGB, TROPI, SED, CDP, LACTIC, IOCAL, BMPX ####[facility] [address] [place] [address] [id number] Lab Director: Ramiro Mark MD#### AGLYCO ####[facility] [address] [place] [phone] lab Director: Wil Swanson MD Hemoglobin (Bld) [Mass/Vol] 9.6 g/dL Low 13.0-17.0 [facility] Comment on above: Performed By: #### P RCAL, CRP, MYCM, GLYHGB, TROPI, SED, CDP, LACTIC, IOCAL, BMPX ####[place] [address] Lab Director: Ramiro Mark MD#### AGLYCO ####[facility] [address] [place] [phone] Lab Director: Wil Swanson MD Immature granulocytes/100 WBC (Bld) 0 % Normal 0 [facility] Comment on above: Performed By: #### P RCAL, CRP, MYCM, GLYHGB, TROPI, SED, CDP, LACTIC, IOCAL, BMPX ####[facility] [address] [place] [address] [id number] Lab Director: Ramiro Mark MD#### AGLYCO ####[facility] [address] [place] [id number] Lab Director: Wil Swanson MD Lymphocytes (Bld) [#/Vol] 0.78 10*3/uL Low 1.10-3.70 [facility] Comment on above: Performed By: #### P RCAL, CRP, MYCM, GLYHGB, TROPI, SED, CDP, LACTIC, IOCAL, BMPX ####[facility] [address] [place] [address] Lab Director: Ramiro Mark MD#### AGLYCO ####[facility] [address] [place] [phone] lab Director: Wil Swanson MD Lymphocytes/100 WBC (Bld) 5 % Low 24-43 [facility] Comment on above: Performed By: #### P RCAL, CRP, MYCM, GLYHGB, TROPI, SED, CDP, LACTIC, IOCAL, BMPX ####[facility] [address] [place] [address] Lab Director: Ramiro Mark MD#### AGLYCO ####[facility] [address] [place] [phone] Lab Director: Wil Swanson MD MCH (RBC) [Entitic mass] 28.7 pg Normal 25.2-33.5 [facility] Comment on above: Performed By: #### P RCAL, CRP, MYCM, GLYHGB, TROPI, SED, CDP, LACTIC, IOCAL, BMPX ####[address] [address] lab Director: Ramiro Mark MD#### AGLYCO ####[facility] [address] [place] [phone] Lab Director: Wil Swanson MD MCHC (RBC) [Mass/Vol] 35.0 g/dL High 28.4-34.8 [facility] Comment on above: Performed By: #### P RCAL, CRP, MYCM, GLYHGB, TROPI, SED, CDP, LACTIC, IOCAL, BMPX ####[facility] [address] [place] [address] [phone] Lab Director: Ramiro Mark MD#### AGLYCO ####[facility] [address] [place] [address] Lab Director: Wil Swanson MD MCV (RBC) [Entitic vol] 82.0 fL Low 82.6-102.9 [facility] Comment on above: Performed By: #### P RCAL, CRP, MYCM, GLYHGB, TROPI, SED, CDP, LACTIC, IOCAL, BMPX ####[facility] [address] [place] [address] Lab Director: Ramiro Mark MD#### AGLYCO ####[facility] [address]q232 [place] [address] Lab Director: Wil Swanson MD Monocytes (Bld) [#/Vol] 1.35 10*3/uL High 0.10-1.20 [facility] Comment on above: Performed By: #### P RCAL, CRP, MYCM, GLYHGB, TROPI, SED, CDP, LACTIC, IOCAL, BMPX ####[facility] [address] [place] [address] Lab Director: Ramiro Mark MD#### AGLYCO ####[facility] [address] [place] [address] Lab Director: Wil Swanson MD Monocytes/100 WBC (Bld) 8 % Normal 3-12 [facility] Comment on above: Performed By: #### P RCAL, CRP, MYCM, GLYHGB, TROPI, SED, CDP, LACTIC, IOCAL, BMPX ####[facility] [address] [place] [address] Lab Director: Ramiro Mark MD#### AGLYCO ####[facility] [address] [place] [address] Lab Director: Wil Swanson MD Neutrophil (Seg) 87 % High 36-65 [facility] Comment on above: Performed By: #### P RCAL, CRP, MYCM, GLYHGB, TROPI, SED, CDP, LACTIC, IOCAL, BMPX ####[facility] [address] [place] [address] Lab Director: Ramiro Mark MD#### AGLYCO ####[facility] [address] [place] [address] [phone] Lab Director: Wil Swanson MD NRBC Automated 0.0 per 100 WBC Normal 0.0 [facility] Comment on above: Performed By: #### P RCAL, CRP, MYCM, GLYHGB, TROPI, SED, CDP, LACTIC, IOCAL, BMPX ####[place] [address] Lab Director: Ramiro Mark MD#### AGLYCO ####[facility] [address] [place] [address] [phone] Lab Director: Wil Swanson MD Platelet mean volume (Bld) [Entitic vol] 10.5 fL Normal 8.1-13.5 [facility] Comment on above: Performed By: #### P RCAL, CRP, MYCM, GLYHGB, TROPI, SED, CDP, LACTIC, IOCAL, BMPX ####[place] [address] Lab Director: Ramiro Mark MD#### AGLYCO ####[facility] [address] [address] [phone] Lab Director: Wil Swanson MD Platelets (Bld) [#/Vol] 240 10*3/uL Normal 138-453 [facility] Comment on above: Performed By: #### P RCAL, CRP, MYCM, GLYHGB, TROPI, SED, CDP, LACTIC, IOCAL, BMPX ####[place] [address] Lab Director: Ramiro Mark MD#### AGLYCO ####[facility] [address]cl[address] [place] [address] Lab Director: Wil Swanson MD RBC (Bld) [#/Vol] 3.34 10*6/uL Low 4.21-5.77 [facility] Comment on above: Performed By: #### P RCAL, CRP, MYCM, GLYHGB, TROPI, SED, CDP, LACTIC, IOCAL, BMPX ####[facility] [address] [place] [address] Lab Director: Ramiro Mark MD#### AGLYCO ####[facility] [address] [address] Lab Director: Wil Swanson MD RBC morphology finding Nom (Bld) MICROCYTOSIS PRESENT Normal [facility] Comment on above: Performed By: #### P RCAL, CRP, MYCM, GLYHGB, TROPI, SED, CDP, LACTIC, IOCAL, BMPX ####[place] [address] Lab Director: Ramiro Mark MD#### AGLYCO ####[facility] [address] [place] [address] Lab Director: Wil Swanson MD WBC (Bld) [#/Vol] 17.1 10*3/uL High 3.5-11.3 [facility] Comment on above: Performed By: #### P RCAL, CRP, MYCM, GLYHGB, TROPI, SED, CDP, LACTIC, IOCAL, BMPX ####[place] [address] Lab Director: Ramiro Mark MD#### AGLYCO ####[facility] [address] [place] [address] Lab Director: Wil Swanson MD Abs. Basophil 0.33 k/uL High 0.0-0.2 [facility] Comment on above: Performed By: #### B H #### [facility] [address] [place], [place] [address] Blow Machine Tender Starch Spraying: Ramiro Santillan MD Abs.Imm.Granulocyte 0.00 k/uL Normal 0.00-0.30 [facility] Comment on above: Performed By: #### B H #### [facility] [address] [place] [address] Blow Machine Tender Starch Spraying: Ramiro Santillan MD Abs.Neutrophil (Seg) 15.71 k/uL High 1.50-8.10 [facility] Comment on above: Performed By: #### B H #### [address] [place] [place] [address] Blow Machine Tender Starch Spraying: Ramiro Santillan MD Basophils/100 WBC (Bld) 2 % Normal 0-2 [facility] Comment on above: Performed By: #### B H #### [address] [place] [place] [address] Blow Machine Tender Starch Spraying: Ramiro Santillan MD Eosinophils (Bld) [#/Vol] 0.00 10*3/uL Normal 0.00-0.44 [facility] Comment on above: Performed By: #### B H #### [facility] [address] [place] [address] [address] [place], [place] [address] Blow Machine Tender Starch Spraying: Ramiro Santillan MD Eosinophils/100 WBC (Bld) 0 % Low 1-4 [facility] Comment on above: Performed By: #### B H #### [address] [place] [place] [address] Blow Machine Tender Starch Spraying: Ramiro Santillan MD Immature granulocytes/100 WBC (Bld) 0 % Normal 0 [facility] Comment on above: Performed By: #### B H #### [facility] [address] [place] [address] [address] [place] [phone] Blow Machine Tender Starch Spraying: Ramiro Santillan MD Lymphocytes (Bld) [#/Vol] 0.33 10*3/uL Low 1.10-3.70 [facility] Comment on above: Performed By: #### B H #### [facility] [address] [place] [address] Blow Machine Tender Starch Spraying: Ramiro Santillan MD Lymphocytes/100 WBC (Bld) 2 % Low 24-43 [facility] Comment on above: Performed By: #### B H #### [facility] [address] [place] [id number] [employer]: Ramiro Santillan MD Monocytes (Bld) [#/Vol] 0.33 10*3/uL Normal 0.10-1.20 [facility] Comment on above: Performed By: #### B H #### [facility] [address] [place], [facility]16 ( [employer]: Ramiro Santillan MD Monocytes/100 WBC (Bld) 2 % Low 3-12 [facility] Comment on above: Performed By: #### B H #### [facility] [address] [place], [facility]83 [employer]: Ramiro Santillan MD Morphology Everardo (Bld) [Interp] Normal Normal [facility] Comment on above: Performed By: #### B H #### [facility] [address] [place], [facility]83 [employer]: Ramiro Santillan MD Neutrophil (Seg) 94 % High 36-[address] [facility] Comment on above: Performed By: #### B H #### [facility] [address] [place] [id number] [employer]: Ramiro Santillan MD Erythrocyte distribution width (RBC) [Ratio] 12.8 % Normal 11.8-14.4 [facility] Comment on above: Performed By: #### B H #### [facility] [address] [place] [address] Dr. [place], [facility]83 [employer]: Ramiro Santillan MD Hematocrit (Bld) [Volume fraction] 34.5 % Low 40.7-50.3 [facility] Comment on above: Performed By: #### B H #### [address] [place] [facility]83 [employer]: Ramiro Santillan MD Hemoglobin (Bld) [Mass/Vol] 12.1 g/dL Low 13.0-17.0 [facility] Comment on above: Performed By: #### B H #### [address] [place], [facility]83 [employer]: Ramiro Santillan MD MCH (RBC) [Entitic mass] 28.8 pg Normal 25.2-33.5 [facility] Comment on above: Performed By: #### B H #### [address] [place], [facility]83 [employer]: Ramiro Santillan MD MCHC (RBC) [Mass/Vol] 35.1 g/dL High 28.4-34.8 [facility] Comment on above: Performed By: #### B H #### [address] [place], [facility]83 [employer]: Ramiro Santillan MD MCV (RBC) [Entitic vol] 82.1 fL Low 82.6-102.9 [facility] Comment on above: Performed By: #### B H #### [address] [place] [address] [employer]: Ramiro Santillan MD NRBC Automated 0.0 per 100 WBC Normal 0.0 [facility] Comment on above: Performed By: #### B H #### [address] [place] [facility]83 [employer]: Ramiro Santillan MD Platelet mean volume (Bld) [Entitic vol] 10.9 fL Normal 8.1-13.5 [facility] Comment on above: Performed By: #### B H #### [facility] [address] [place], [place] [id number] [employer]: Ramiro Santillan MD Platelets (Bld) [#/Vol] 291 10*3/uL Normal 138-453 [facility] Comment on above: Performed By: #### B H #### [facility] [address] [place] [address] [employer]: Ramiro Santillan MD RBC (Bld) [#/Vol] 4.20 10*6/uL Low 4.21-5.77 [facility] Comment on above: Performed By: #### B H #### [facility] [address] [place], [place] [id number] [employer]: Ramiro Santillan MD WBC (Bld) [#/Vol] 16.7 10*3/uL High 3.5-11.3 [facility] Comment on above: Performed By: #### B H #### [facility] [address] [place], [place] [id number] [employer]: Ramiro Santillan MD CKon 09-28-2024 CK [Catalytic activity/Vol] 420 U/L High 39 - 308 U/L [facility] CT CHEST ABDOMEN PELVIS W CO NTRASTon 09-28-2024 CT CHEST ABDOMEN PELVIS W CONTRAST EXAMINATION: CT OF THE CHEST, ABDOMEN, AND PELVIS WITH CONTRAST 09/28/2024 8:58 am TECHNIQUE: CT of the chest, abdomen and pelvis was performed with the administration of intravenous contrast. Multiplanar reformatted images are provided for review. Automated exposure control, iterative reconstruction, and/or weight based adjustment of the mA/kV was utilized to reduce the radiation dose to as low as reasonably achievable. COMPARISON: None HISTORY: ORDERING SYSTEM PROVIDED HISTORY: ams TECHNOLOGIST PROVIDED HISTORY: ams Decision Support Exception - unselect if not a suspected or confirmed emergency medical condition->Emergency Medical Condition (MA) FINDINGS: Chest: Mediastinum: Soft tissues of the thoracic inlet are unremarkable. The thoracic aorta is normal in caliber. The main pulmonary artery is normal in caliber. There is no pericardial effusion. There is no mediastinal or hilar adenopathy. Lungs/pleura: There are few ground-glass opacities laterally within the left lung. There is no effusion. There is no pneumothorax. The tracheobronchial tree is patent. Soft Tissues/Bones: The extrathoracic soft tissues are unremarkable. There is no axillary adenopathy. There is no acute osseous abnormality. Abdomen/Pelvis: Organs: The liver and spleen are normal size and overall attenuation. The gallbladder is mildly distended. There is a trace amount of fluid and potential inflammation adjacent to the pancreas. The adrenal glands are unremarkable. Kidneys are without obstructive uropathy. The urinary bladder is unremarkable. GI/Bowel: The stomach is unremarkable. Loops of small bowel are normal in caliber without evidence for obstruction. Colon contains air and fecal residue. There is no free air or free fluid. Pelvis: Prostate gland and seminal vesicles are unremarkable. Peritoneum/Retroperiton eum: The psoas muscles are symmetric. The abdominal aorta is normal in caliber. The inferior vena cava is unremarkable. There is no retroperitoneal or mesenteric adenopathy. Bones/Soft Tissues: The extra-abdominal soft tissues are unremarkable. There is no acute osseous abnormality. IMPRESSION: Few ground-glass opacities laterally in the left lung concerning for an infectious process. Trace amount of fluid and potential inflammation adjacent to the pancreas concerning for pancreatitis. Interpreted by: Lito Marie MD Signed by: Lito Marie MD 09/28/24 Final result Normal [facility] CT Chest and Abdomen and Pel vis W contrast Karri 09-28-2024 Few ground-glass opacities laterally in the left lung concerning for an infectious process. Trace amount of fluid and potential inflammation adjacent to the pancreas concerning for pancreatitis. PN RIS CONSOLIDATED EXAMINATION: CT OF THE CHEST, ABDOMEN, AND PELVIS WITH CONTRAST 09/28/2024 8:58 am TECHNIQUE: CT of the chest, abdomen and pelvis was performed with the administration of intravenous contrast. Multiplanar reformatted images are provided for review. Automated exposure control, iterative reconstruction, and/or weight based adjustment of the mA/kV was utilized to reduce the radiation dose to as low as reasonably achievable. COMPARISON: None HISTORY: ORDERING SYSTEM PROVIDED HISTORY: ams TECHNOLOGIST PROVIDED HISTORY: ams Decision Support Exception - unselect if not a suspected or confirmed emergency medical condition->Emergency Medical Condition (MA) FINDINGS: Chest: Mediastinum: Soft tissues of the thoracic inlet are unremarkable. The thoracic aorta is normal in caliber. The main pulmonary artery is normal in caliber. There is no pericardial effusion. There is no mediastinal or hilar adenopathy. Lungs/pleura: There are few ground-glass opacities laterally within the left lung. There is no effusion. There is no pneumothorax. The tracheobronchial tree is patent. Soft Tissues/Bones: The extrathoracic soft tissues are unremarkable. There is no axillary adenopathy. There is no acute osseous abnormality. Abdomen/Pelvis: Organs: The liver and spleen are normal size and overall attenuation. The gallbladder is mildly distended. There is a trace amount of fluid and potential inflammation adjacent to the pancreas. The adrenal glands are unremarkable. Kidneys are without obstructive uropathy. The urinary bladder is unremarkable. GI/Bowel: The stomach is unremarkable. Loops of small bowel are normal in caliber without evidence for obstruction. Colon contains air and fecal residue. There is no free air or free fluid. Pelvis: Prostate gland and seminal vesicles are unremarkable. Peritoneum/Retroperiton eum: The psoas muscles are symmetric. The abdominal aorta is normal in caliber. The inferior vena cava is unremarkable. There is no retroperitoneal or mesenteric adenopathy. Bones/Soft Tissues: The extra-abdominal soft tissues are unremarkable. There is no acute osseous abnormality. PN RIS CONSOLIDATED Lito Marie MD - 09/28/2024 EXAMINATION: CT OF THE CHEST, ABDOMEN, AND PELVIS WITH CONTRAST 09/28/2024 8:58 am TECHNIQUE: CT of the chest, abdomen and pelvis was performed with the administration of intravenous contrast. Multiplanar reformatted images are provided for review. Automated exposure control, iterative reconstruction, and/or weight based adjustment of the mA/kV was utilized to reduce the radiation dose to as low as reasonably achievable. COMPARISON: None HISTORY: ORDERING SYSTEM PROVIDED HISTORY: ams TECHNOLOGIST PROVIDED HISTORY: ams Decision Support Exception - unselect if not a suspected or confirmed emergency medical condition->Emergency Medical Condition (MA) FINDINGS: Chest: Mediastinum: Soft tissues of the thoracic inlet are unremarkable. The thoracic aorta is normal in caliber. The main pulmonary artery is normal in caliber. There is no pericardial effusion. There is no mediastinal or hilar adenopathy. Lungs/pleura: There are few ground-glass opacities laterally within the left lung. There is no effusion. There is no pneumothorax. The tracheobronchial tree is patent. Soft Tissues/Bones: The extrathoracic soft tissues are unremarkable. There is no axillary adenopathy. There is no acute osseous abnormality. Abdomen/Pelvis: Organs: The liver and spleen are normal size and overall attenuation. The gallbladder is mildly distended. There is a trace amount of fluid and potential inflammation adjacent to the pancreas. The adrenal glands are unremarkable. Kidneys are without obstructive uropathy. The urinary bladder is unremarkable. GI/Bowel: The stomach is unremarkable. Loops of small bowel are normal in caliber without evidence for obstruction. Colon contains air and fecal residue. There is no free air or free fluid. Pelvis: Prostate gland and seminal vesicles are unremarkable. Peritoneum/Retroperiton eum: The psoas muscles are symmetric. The abdominal aorta is normal in caliber. The inferior vena cava is unremarkable. There is no retroperitoneal or mesenteric adenopathy. Bones/Soft Tissues: The extra-abdominal soft tissues are unremarkable. There is no acute osseous abnormality. IMPRESSION: Few ground-glass opacities laterally in the left lung concerning for an infectious process. Trace amount of fluid and potential inflammation adjacent to the pancreas concerning for pancreatitis. [facility] Radiology Study observation (narrative) [facility] CT HEAD WO CONTRASTon 2023 CT HEAD WO CONTRAST EXAMINATION: CT OF THE HEAD WITHOUT CONTRAST 09/28/2024 8:58 am TECHNIQUE: CT of the head was performed without the administration of intravenous contrast. Automated exposure control, iterative reconstruction, and/or weight based adjustment of the mA/kV was utilized to reduce the radiation dose to as low as reasonably achievable. COMPARISON: MRI brain performed 01/22/2024. HISTORY: ORDERING SYSTEM PROVIDED HISTORY: Stroke TECHNOLOGIST PROVIDED HISTORY: Stroke Decision Support Exception - unselect if not a suspected or confirmed emergency medical condition->Emergency Medical Condition (MA) FINDINGS: BRAIN/VENTRICLES: There is no acute intracranial hemorrhage, mass effect, or midline shift. There is satisfactory overall winkler-white matter differentiation. 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 The ventricular structures are symmetric and unremarkable. The infratentorial structures are unremarkable. ORBITS: The visualized portion of the orbits demonstrate no acute abnormality. SINUSES: The visualized paranasal sinuses and mastoid air cells demonstrate no acute abnormality. SOFT TISSUES/SKULL: No acute abnormality of the visualized skull or soft tissues. IMPRESSION: No acute intracranial abnormality. Remote right parietal lobe infarct. Interpreted by: Lito Marie MD Signed by: Lito Marie MD 09/28/24 Final result Normal [facility] CT Head WO contraston 2023 No acute intracrania l abnormality. Remote right parietal lobe infarct. [facility] CONSOLIDATED EXAMINATION: CT OF THE HEAD WITHOUT CONTRAST 09/28/2024 8:58 am TECHNIQUE: CT of the head was performed without the administration of intravenous contrast. Automated exposure control, iterative reconstruction, and/or weight based adjustment of the mA/kV was utilized to reduce the radiation dose to as low as reasonably achievable. COMPARISON: MRI brain performed 01/22/2024. HISTORY: ORDERING SYSTEM PROVIDED HISTORY: Stroke TECHNOLOGIST PROVIDED HISTORY: Stroke Decision Support Exception - unselect if not a suspected or confirmed emergency medical condition->Emergency Medical Condition (MA) FINDINGS: BRAIN/VENTRICLES: There is no acute intracranial hemorrhage, mass effect, or midline shift. There is satisfactory overall winkler-white matter differentiation. 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 The ventricular structures are symmetric and unremarkable. The infratentorial structures are unremarkable. ORBITS: The visualized portion of the orbits demonstrate no acute abnormality. SINUSES: The visualized paranasal sinuses and mastoid air cells demonstrate no acute abnormality. SOFT TISSUES/SKULL: No acute abnormality of the visualized skull or soft tissues. [facility] CONSOLIDATED Lito Marie MD - 09/28/2024 EXAMINATION: CT OF THE HEAD WITHOUT CONTRAST 09/28/2024 8:58 am TECHNIQUE: CT of the head was performed without the administration of intravenous contrast. Automated exposure control, iterative reconstruction, and/or weight based adjustment of the mA/kV was utilized to reduce the radiation dose to as low as reasonably achievable. COMPARISON: MRI brain performed 01/22/2024. HISTORY: ORDERING SYSTEM PROVIDED HISTORY: Stroke TECHNOLOGIST PROVIDED HISTORY: Stroke Decision Support Exception - unselect if not a suspected or confirmed emergency medical condition->Emergency Medical Condition (MA) FINDINGS: BRAIN/VENTRICLES: There is no acute intracranial hemorrhage, mass effect, or midline shift. There is satisfactory overall winkler-white matter differentiation. 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 The ventricular structures are symmetric and unremarkable. The infratentorial structures are unremarkable. ORBITS: The visualized portion of the orbits demonstrate no acute abnormality. SINUSES: The visualized paranasal sinuses and mastoid air cells demonstrate no acute abnormality. SOFT TISSUES/SKULL: No acute abnormality of the visualized skull or soft tissues. IMPRESSION: No acute intracranial abnormality. Remote right parietal lobe infarct. [facility] Radiology Study observation (narrative) [facility] CT Head WO contrastOrdered B y: Lito Marie on 09-28-2024 [facility] Work Phone: CTA HEAD NECK W CONTRASTon 1 11-29-2023 CTA HEAD NECK W CONTRAST EXAMINATION: CTA OF THE HEAD AND NECK WITH CONTRAST 09/28/2024 8:58 am: TECHNIQUE: CTA of the head and neck [...] COMPARISON: None. HISTORY: ORDERING SYSTEM PROVIDED HISTORY: AMS TECHNOLOGIST PROVIDED HISTORY: AMS Decision Support Exception - unselect if not a suspected or confirmed emergency medical condition->Emergency Medical Condition (MA) FINDINGS: CTA NECK: AORTIC ARCH/ARCH VESSELS: No dissection or arterial injury. No significant stenosis of the brachiocephalic or subclavian arteries. CAROTID ARTERIES: No dissection, arterial injury, or hemodynamically significant stenosis by NASCET criteria. VERTEBRAL ARTERIES: No dissection, arterial injury, or significant stenosis. SOFT TISSUES: There are few ground-glass opacities partially visualized in the left lung. No cervical or superior mediastinal lymphadenopathy. The larynx and pharynx are unremarkable. No acute abnormality of the salivary and thyroid glands. BONES: No acute osseous abnormality. CTA HEAD: ANTERIOR CIRCULATION: No significant stenosis of the intracranial internal carotid, anterior cerebral, or middle cerebral arteries. No aneurysm. POSTERIOR CIRCULATION: No significant stenosis of the basilar or posterior cerebral arteries. No aneurysm. OTHER: No dural venous sinus thrombosis on this non-dedicated study. BRAIN: No mass effect or midline shift. No extra-axial fluid collection. The winkler-white differentiation is maintained. IMPRESSION: No significant stenosis or evidence for large vessel occlusion. Few partially visualized ground-glass opacities in the left lung concerning for pneumonia. Interpreted by: Lito Marie MD Signed by: Lito Marie MD 09/28/24 Final result Normal [facility] CTA Head vessels and Neck ve ssels W contrast Karri 09-28-2024 No significant steno sis or evidence for large vessel occlusion. Few partially visualized ground-glass opacities in the left lung concerning for pneumonia. [facility] CONSOLIDATED EXAMINATION: CTA OF THE HEAD AND NECK WITH CONTRAST 09/28/2024 8:58 am: TECHNIQUE: CTA of the head and neck [...] COMPARISON: None. HISTORY: ORDERING SYSTEM PROVIDED HISTORY: AMS TECHNOLOGIST PROVIDED HISTORY: AMS Decision Support Exception - unselect if not a suspected or confirmed emergency medical condition->Emergency Medical Condition (MA) FINDINGS: CTA NECK: AORTIC ARCH/ARCH VESSELS: No dissection or arterial injury. No significant stenosis of the brachiocephalic or subclavian arteries. CAROTID ARTERIES: No dissection, arterial injury, or hemodynamically significant stenosis by NASCET criteria. VERTEBRAL ARTERIES: No dissection, arterial injury, or significant stenosis. SOFT TISSUES: There are few ground-glass opacities partially visualized in the left lung. No cervical or superior mediastinal lymphadenopathy. The larynx and pharynx are unremarkable. No acute abnormality of the salivary and thyroid glands. BONES: No acute osseous abnormality. CTA HEAD: ANTERIOR CIRCULATION: No significant stenosis of the intracranial internal carotid, anterior cerebral, or middle cerebral arteries. No aneurysm. POSTERIOR CIRCULATION: No significant stenosis of the basilar or posterior cerebral arteries. No aneurysm. OTHER: No dural venous sinus thrombosis on this non-dedicated study. BRAIN: No mass effect or midline shift. No extra-axial fluid collection. The winkler-white differentiation is maintained. [facility] CONSOLIDATED Lito Marie MD - 09/28/2024 EXAMINATION: CTA OF THE HEAD AND NECK WITH CONTRAST 09/28/2024 8:58 am: TECHNIQUE: CTA of the head and neck [...] COMPARISON: None. HISTORY: ORDERING SYSTEM PROVIDED HISTORY: AMS TECHNOLOGIST PROVIDED HISTORY: AMS Decision Support Exception - unselect if not a suspected or confirmed emergency medical condition->Emergency Medical Condition (MA) FINDINGS: CTA NECK: AORTIC ARCH/ARCH VESSELS: No dissection or arterial injury. No significant stenosis of the brachiocephalic or subclavian arteries. CAROTID ARTERIES: No dissection, arterial injury, or hemodynamically significant stenosis by NASCET criteria. VERTEBRAL ARTERIES: No dissection, arterial injury, or significant stenosis. SOFT TISSUES: There are few ground-glass opacities partially visualized in the left lung. No cervical or superior mediastinal lymphadenopathy. The larynx and pharynx are unremarkable. No acute abnormality of the salivary and thyroid glands. BONES: No acute osseous abnormality. CTA HEAD: ANTERIOR CIRCULATION: No significant stenosis of the intracranial internal carotid, anterior cerebral, or middle cerebral arteries. No aneurysm. POSTERIOR CIRCULATION: No significant stenosis of the basilar or posterior cerebral arteries. No aneurysm. OTHER: No dural venous sinus thrombosis on this non-dedicated study. BRAIN: No mass effect or midline shift. No extra-axial fluid collection. The winkler-white differentiation is maintained. IMPRESSION: No significant stenosis or evidence for large vessel occlusion. Few partially visualized ground-glass opacities in the left lung concerning for pneumonia. [facility] Radiology Study observation (narrative) [facility] Calcium, Ionicon 09-28-2024 Calcium [Moles/Vol] 1.20 mmol/L Normal 1.13-1.33 [facility] Comment on above: Performed By: #### P RCAL, CRP, MYCM, GLYHGB, TROPI, SED, CDP, LACTIC, IOCAL, BMPX ####[id number] [place] [address] Lab Director: Ramiro Mark MD#### AGLYCO ####[address] [address] [facility] Director: Wil Swanson MD Calcium, Ionizedon Calcium.ionized (Bld) [Moles/Vol] 1.20 mmol/L 1.13 - 1.33 mmol/L [facility] Comp Metabolic Profon 2023 Albumin [Mass/Vol] 4.0 g/dL Normal 3.5-5.2 [facility] Comment on above: Performed By: #### B H #### [facility] [address] [place] [address] [employer] Spr[employer]: Ramiro Santillan MD Albumin/Glob Ratio 1.2 Normal 1.0-2.5 [facility] Comment on above: Performed By: #### B H #### [facility] [address] [place], [place] [id number] [employer] T[employer] Starch Spraying: Ramiro Santillan MD Alkaline Phos 192 U/L High 40-129 [facility] Comment on above: Performed By: #### B H #### [facility] [address] [place], [place] [id number] [employer] Starch Spraying: Ramiro Santillan MD ALT [Catalytic activity/Vol] 24 U/L Normal 10-50 [facility] Comment on above: Performed By: #### B H #### [facility] [address] [place], [place] [id number] [employer] Machine T[employer] Starch Spraying: Ramiro Santillan MD Anion gap [Moles/Vol] 18 mmol/L High 9-16 [facility] Comment on above: Performed By: #### B H #### [facility] [address] [place] [address] B[employer] Machine Tender Starch Spraying: Ramiro Santillan MD AST [Catalytic activity/Vol] 29 U/L Normal 10-50 [facility] Comment on above: Performed By: #### B H #### [facility] [address] [place], [place] [id number] [employer]arch Spraying: Ramiro Santillan MD Bilirubin [Mass/Vol] 0.4 mg/dL Normal 0.00-1.20 [facility] Comment on above: Performed By: #### B H #### [facility] [address] [place] [id number] [employer]arch Spraying: Ramiro Santillan MD BUN/CRE Ratio 22 High 9-20 [facility] Comment on above: Performed By: #### B H #### [facility] [address] [place], [place] [id number] [employer] Tender Starch Spraying: Ramiro Santillan MD Calcium [Mass/Vol] 9.4 mg/dL Normal 8.6-10.4 [facility] Comment on above: Performed By: #### B H #### [facility] [address] [place], [place] [id number] [employer] T[employer]arch Spraying: Ramiro Santillan MD Chloride [Moles/Vol] 87 mmol/L Low 98-107 [facility] Comment on above: Performed By: #### B H #### [facility] [address] [place], [place] [id number] B[employer] Spr[employer]: Ramiro Santillan MD CO2 [Moles/Vol] 23 mmol/L Normal 20-31 [facility] Comment on above: Performed By: #### B H #### [facility] [address] [place] [id number] B[employer] T[employer] Starch Spraying: Ramiro Santillan MD Creatinine [Mass/Vol] 2.0 mg/dL High 0.70-1.20 [facility] Comment on above: Performed By: #### B H #### [facility] [address] [place], [place] [id number] [employer] Spraying: Ramiro Santillan MD GFR/1.73 sq M.predicted among non-blacks MDRD (S/P/Bld) [Vol rate/Area] 39 mL/min/{1.73_m2} Low >60 [facility] Comment on above: Result Comment: These [...] renal tubular secretion. Performed By: #### B H #### [facility] [address] [place] [address] [place] [address] Blow Machine Tender Starch Spraying: Ramiro Santillan MD Glucose [Mass/Vol] 820 mg/dL Critically high 74-99 [facility] Comment on above: Performed By: #### B H #### [facility] [address] [place] [address] [place] [address] Blow Machine Tender Starch Spraying: Ramiro Santillan MD Potassium [Moles/Vol] 5.0 mmol/L Normal 3.7-5.3 [facility] Comment on above: Performed By: #### B H #### [address] [place], [place] [address] Blow Machine Tender Starch Spraying: Ramiro Santillan MD Protein [Mass/Vol] 7.3 g/dL Normal 6.6-8.7 [facility] Comment on above: Performed By: #### B H #### [facility] [address] [place] [address] [address] [place], [place] [id number] Blow Machine Tender Starch Spraying: Ramiro Santillan MD Sodium [Moles/Vol] 128 mmol/L Low 136-145 [facility] Comment on above: Performed By: #### B H #### [facility] [address] [place] [address] [place] [address] Blow Machine Tender Starch Spraying: Ramiro Santillan MD Urea nitrogen [Mass/Vol] 43 mg/dL High 6-20 [facility] Comment on above: Performed By: #### B H #### [facility] [address] [place] [address] Blow Machine Tender Starch Spraying: Ramiro Santillan MD [facility] Metabolic [facility] 09-28-2024 Albumin [Mass/Vol] 4.0 g/dL 3.5 - 5.2 g/dL [facility] Albumin/Globulin [Mass ratio] 1.2 {ratio} 1.0 - 2.5 [facility] ALP [Catalytic activity/Vol] 192 U/L High 40 - 129 U/L [facility] ALT [Catalytic activity/Vol] 24 U/L 10 - 50 U/L [facility] Anion gap [Moles/Vol] 18 mmol/L High 9 - 16 mmol/L [facility] AST [Catalytic activity/Vol] 29 U/L 10 - 50 U/L [facility] Bilirubin [Mass/Vol] 0.4 mg/dL 0.00 - 1.20 mg/dL [facility] Calcium [Mass/Vol] 9.4 mg/dL 8.6 - 10. 4 mg/dL [facility] Chloride [Moles/Vol] 87 mmol/L Low 98 - 10 7 mmol/L [facility] CO2 [Moles/Vol] 23 mmol/L 20 - 31 mmol/L [facility] Creatinine [Mass/Vol] 2.0 mg/dL High 0.70 - 1.20 mg/dL [facility] Est, Glom Filt Rate 39 Low - PINF [facility] Comment on above: These results are not [...] that affects renal tubular secretion. Glucose [Mass/Vol] 820 mg/dL Critically high 74 - 9 9 mg/dL [facility] Interpretation and review of laboratory results Abnormal [facility] Potassium [Moles/Vol] 5.0 mmol/L 3.7 - 5.3 mmol/L [facility] Protein [Mass/Vol] 7.3 g/dL 6.6 - 8.7 g/dL [facility] Sodium [Moles/Vol] 128 mmol/L Low 136 - 145 mmol/L [facility] Urea nitrogen [Mass/Vol] 43 mg/dL High 6 - 20 mg/dL [facility] Urea nitrogen/Creatinine [Mass ratio] 22 mg/mg High 9 - 20 [facility] Creatine Kinaseon 09-28-2024 CK [Catalytic activity/Vol] 420 U/L High 39-308 [facility] Comment on above: Performed By: #### B MP #### [address] [place] [place] [address] Blow Machine Tender Starch Spraying: Ramiro Santillan MD Drug Scr, Abuse, Uron 2023 Amphetamine(s),Ur Negative Normal NEG [facility] Comment on above: Result Comment: Cuto ff: 1000 ng/mL Performed By: #### B MP #### [address] [place] [address] Blow Machine Tender Starch Spraying: Ramiro Santillan MD Barbiturate(s),Ur Negative Normal NEG [facility] Comment on above: Result Comment: Cuto ff: 200 ng/ml Performed By: #### B MP #### [facility] [address] [place] [address] [place] [address] Blow Machine Tender Starch Spraying: Ramiro Santillan MD Benzodiazepine(s) Negative Normal NEG [facility] Comment on above: Result Comment: Cuto ff: 200 ng/ml Performed By: #### B MP #### [address] [place] [address] Blow Machine Tender Starch Spraying: Ramiro Santillan MD Buprenorphrine, Ur Negative Normal NEG [facility] Comment on above: Result Comment: Cuto ff: 5 ng/ml Performed By: #### B MP #### [address] [place] [address] Blow Machine Tender Starch Spraying: Ramiro Santillan MD Cannabinoid(s),Ur Negative Normal NEG [facility] Comment on above: Result Comment: Cuto ff: 50 ng/ml Performed By: #### B MP #### [address] [place] [address] Blow Machine Tender Starch Spraying: Ramiro Santillan MD Cocaine Metabolite Negative Normal [facility] Comment on above: Result Comment: Cuto ff: 300 ng/ml Performed By: #### B MP #### [address] [place] [address] Blow Machine Tender Starch Spraying: Ramiro Santillan MD Fentanyl, Urine Negative Normal [facility] Comment on above: Result Comment: Cuto ff: 5 ng/ml Performed By: #### B MP #### [address] [place] [address] Blow Machine Tender Starch Spraying: Ramiro Santillan MD Interpretive Info This method is a screening test to detect only these drug classes as part of a Normal [facility] Comment on above: Result Comment: medi juvenal workup. Confirmatory testing by another method should be ordered if clinically indicated. Performed By: #### B MP #### [address] [place] [address] Blow Machine Tender Starch Spraying: Ramiro Santillan MD Methadone Ql (U) Negative Normal NEG [facility] Comment on above: Result Comment: Cuto ff: 300 ng/ml Performed By: #### B MP #### [address] [place] [address] Blow Machine Tender Starch Spraying: Ramiro Santillan MD Opiate(s), Ur Negative Normal NEG [facility] Comment on above: Result Comment: Cuto ff: 300 ng/ml Note: The Opiate screen is not intended to detect Oxycodone. Performed By: #### B MP #### [address] [place] [place] [address] Blow Machine Tender Starch Spraying: Ramiro Santillan MD Oxycodone, Urine Negative Normal NEG [facility] Comment on above: Result Comment: Cuto ff: 100 ng/ml Performed By: #### B MP #### [facility] [address] [place] [address] Blow Machine Tender Starch Spraying: Ramiro Santillan MD Phencyclidine, Ur Negative Normal NEG [facility] Comment on above: Result Comment: Cuto ff: 25 ng/ml Performed By: #### B MP #### [facility] [address] [place] [address] Blow Machine Tender Starch Spraying: Ramiro Santillan MD Glucose, Whole Bloodon 09-28 Glucose [Mass/Vol] 387 mg/dL High 74 - 100 mg/dL [facility] Interpretation and review of laboratory results Abnormal [facility] Glucose [Mass/Vol] 387 mg/dL High 74-100 [facility] Glucose [Mass/Vol] 469 mg/dL High 74 - 100 mg/dL [facility] Interpretation and review of laboratory results Abnormal [facility] Glucose [Mass/Vol] 469 mg/dL High 74-100 [facility] Glucose [Mass/Vol] 543 mg/dL Critically high 74 - 1 00 mg/dL [facility] Interpretation and review of laboratory results Abnormal [facility] Glucose [Mass/Vol] 543 mg/dL Critically high 74-100 [facility] Glucose [Mass/Vol] 137 mg/dL High 75-110 [facility] Glucose [Mass/Vol] 472 mg/dL Critically high 75-[address] [facility] Comment on above: Result Comment: Martin carvajal Noted Glucose [Mass/Vol] 115 mg/dL High 75-110 [facility] Glucose [Mass/Vol] 126 mg/dL High 75-110 [facility] Glucose [Mass/Vol] 178 mg/dL High 75-110 [facility] Glucose [Mass/Vol] 255 mg/dL High 75-110 [facility] Glucose [Mass/Vol] 289 mg/dL High 75-110 [facility] Glucose [Mass/Vol] 305 mg/dL High 75-110 [facility] Hemoglobin A1Con 09-28-[address] Gluc Sent to reference laboratory. Separate report to follow. Normal [facility] Comment on above: Result Comment: The ADA and AACC recommend providing the estimated average glucose result to permit better patient understanding of their HBA1c result. Performed By: #### P RCAL, CRP, MYCM, GLYHGB, TROPI, SED, CDP, LACTIC, IOCAL, BMPX ####[facility] [address] [place] [id number] lab Director: Ramiro Mark MD#### AGLYCO ####[facility] [address] [place] [address] [id number] Lab Director: Wil Swanson MD Hemoglobin A1C Sent to reference laboratory. Separate report to follow. Normal 4.0-6.0 [facility] Comment on above: Performed By: #### P RCAL, CRP, MYCM, GLYHGB, TROPI, SED, CDP, LACTIC, IOCAL, BMPX ####[facility] [address] [place] [address] [id number] lab Director: Ramiro Mark MD#### AGLYCO ####[facility] [address] [place] [id number] Lab Director: Wil Swanson MD Hemoglobin A1con 09-28-2024 Average glucose Estimated from glycated hemoglobin (Bld) [Mass/Vol] Sent to reference laboratory. Separate report to follow. mg/dL [facility] Blog Talk Radio HbA1c (Bld) [Mass fraction] Sent to reference laboratory. Separate report to follow. 4.0 - 6.0 % [facility] Blog Talk Radio [facility] [employer] Talk [employer] Heparin Anti-Xaon 09-28-2024 Heparin Anti-Xa <0.10 Normal [facility] Comment on above: Result Comment: This test has not been validated or calibrated for therapies other than unfractionated heparin.Interpretation of the result in relation to other therapies must be done with caution and within clinical context. Performed By: #### H EPXA, PTT, CBC, PT ####[facility] [address] [place], [place] [id number] Lab Director: Ramiro Mark MD LEGIONELLA ANTIGEN, URINEon 09-28-2024 L. pneumophila 1 Ag IA.rapid Ql (U) Negative NEGATIVE [facility] Lactic Acidon 09-28-2024 Lactic Acid, Whole Blood 0.9 mmol/L 0.7 - 2.1 mmol/L [facility] Lactic Acid,Whole Bl 0.9 mmol/L Normal 0.7-2.1 [facility] Comment on above: Performed By: #### P HO, MG, BMP, LACTIC ####[facility] [address] [place] [address] [id number] lab Director: Ramiro Mark MD Lactic Acid, Whole Blood 2.0 mmol/L 0.7 - 2.1 mmol/L [facility] Lactic Acid,Whole Bl 2.0 mmol/L Normal 0.7-2.1 [facility] Comment on above: Performed By: #### P HO, MG, BMP, TROPI, LACTIC ####[facility] [address] [place] [address] [id number] Lab Director: Ramiro Mark MD Interpretation and review of laboratory results Abnormal [facility] Lactic Acid, Whole Blood 3.2 mmol/L High 0.7 - 2.1 mmol/L [facility] Lactic Acid,Whole Bl 3.2 mmol/L High 0.7-2.1 [facility] Comment on above: Performed By: #### P RCAL, CRP, MYCM, GLYHGB, TROPI, SED, CDP, LACTIC, IOCAL, BMPX ####[facility] [address] [place], [place] [id number] Lab Director: Ramiro Mark MD#### AGLYCO ####[facility] [address] [place] [address] Lab Director: Wil Swanson MD Interpretation and review of laboratory results Abnormal [facility] Lactate (BldV) [Moles/Vol] 3.4 mmol/L High 0.5 - 2.2 mmol/L [facility] Lactate [Moles/Vol] 3.4 mmol/L High 0.5-2.2 [facility] Comment on above: Performed By: #### L ACTIC #### [facility] [address] [place] [address] Blow Machine Tender Starch Spraying: Ramiro Santillan MD Interpretation and review of laboratory results Abnormal [facility] Lactate (BldV) [Moles/Vol] 2.3 mmol/L High 0.5 - 2.2 mmol/L [facility] Lactate [Moles/Vol] 2.3 mmol/L High 0.5-2.2 [facility] Comment on above: Performed By: #### L ACTIC #### [facility] [address] [place] [address] Blow Machine Tender Starch Spraying: Ramiro Santillan MD Legionella Ag, Uron 09-28-20 24 Legionella Ag, Ur Negative Normal NEG [facility] Comment on above: Result Comment: L. p neumophila serogroup 1 antigen not detected.A negative result does not exclude infection with Leginella pnemophila serogroup 1 nor does it rule out other microbial-caused respiratory infections of disease caused by other serogroups of Legionella pneumophila. Performed By: #### L EGU ####[facility] [address] [place], [place] [id number] Lab Director: Ramiro Mark MD Lipaseon 09-28-2024 Lipase [Catalytic activity/Vol] 83 U/L High 13 - 60 U/L [facility] Lipase [Catalytic activity/Vol] 83 U/L High 13-60 [facility] Comment on above: Performed By: #### B H #### [facility] [address] [place] [address] Blow Machine Tender Starch Spraying: Ramiro Santillan MD MRSA, DNA, Nasalon Specimen Description .NASAL SWAB Normal [facility] Comment on above: Performed By: #### M RSANO ####[address] [place] [address] Lab Director: Ramiro Mark MD Magnesiumon 09-28-2024 Magnesium [Mass/Vol] 1.7 mg/dL 1.6 - 2 .6 mg/dL [facility] Magnesium [Mass/Vol] 1.7 mg/dL Normal 1.6-2.6 [facility] Comment on above: Performed By: #### P HO, MG, BMP, LACTIC ####[address] [place] [address] Lab Director: Ramiro Mark MD Magnesium [Mass/Vol] 1.8 mg/dL 1.6 - 2 .6 mg/dL [facility] Magnesium [Mass/Vol] 1.8 mg/dL Normal 1.6-2.6 [facility] Comment on above: Performed By: #### P HO, MG, BMP, TROPI, LACTIC ####[facility] [address] [place] [address] Lab Director: Ramiro Mark MD Magnesium [Mass/Vol] 1.3 mg/dL Low 1.6-2.6 [facility] Comment on above: Performed By: #### B MP #### [facility] [address] [place] [address] Blow Machine Tender Starch Spraying: Ramiro Santillan MD Magnesium [Mass/Vol] 2.1 mg/dL 1.6 - 2 .6 mg/dL [facility] Magnesium [Mass/Vol] 2.1 mg/dL Normal 1.6-2.6 [facility] Comment on above: Performed By: #### B #### [facility] [address] [place] [address] Blow Machine Tender Starch Spraying: Ramiro Santillan MD Microscopic Urinalysison Epithelial cells LM.HPF (Urine sed) [#/Area] 0 TO 2 [facility] RBC LM.HPF (Urine sed) [#/Area] 2 TO 5 [facility] WBC LM.HPF (Urine sed) [#/Area] 0 TO 2 [facility] No Panel Informationon 09-28 [facility] Interpretation and review of laboratory results Abnormal [facility] Interpretation and review of laboratory results Abnormal [facility] Interpretation and review of laboratory results Abnormal [facility] Interpretation and review of laboratory results Abnormal [facility] Interpretation and review of laboratory results Abnormal [facility] POC Glucose Fingerstickon Glucose [Mass/Vol] 137 mg/dL High 75 - 110 mg/dL [facility] Interpretation and review of laboratory results Abnormal [facility] Glucose [Mass/Vol] 472 mg/dL Critically high 75 - 1 10 mg/dL [facility] Interpretation and review of laboratory results Abnormal [facility] Glucose [Mass/Vol] 115 mg/dL High 75 - 110 mg/dL [facility] Interpretation and review of laboratory results Abnormal [facility] Health [facility] Glucose [Mass/Vol] 126 mg/dL High 75 - 110 mg/dL [facility] Interpretation and review of laboratory results Abnormal [facility] Health [facility] Glucose [Mass/Vol] 178 mg/dL High 75 - 110 mg/dL [facility] Interpretation and review of laboratory results Abnormal [facility] Glucose [Mass/Vol] 255 mg/dL High 75 - 110 mg/dL [facility] Interpretation and review of laboratory results Abnormal [facility] Glucose [Mass/Vol] 289 mg/dL High 75 - 110 mg/dL [facility] Interpretation and review of laboratory results Abnormal [facility] Glucose [Mass/Vol] 305 mg/dL High 75 - 110 mg/dL [facility] Interpretation and review of laboratory results Abnormal [facility] PTon 09-28-2024 INR Coag (PPP) [Relative time] 1.1 {INR} [facility] Comment on above: Result Comment: Ther apeutic Range: Moderate Anticoagulant Intensity: INR = 2.0-3.0 High Anticoagulant Intensity: INR = 2.5-3.5 Performed By: #### H EPXA, PTT, CBC, PT ####[address] [place], [place] [id number] [facility] Director: Ramiro Mark MD PT Coag (PPP) [Time] 14.3 s Normal 11.7-14.9 [facility] Comment on above: Performed By: #### H EPXA, PTT, CBC, PT ####[address] [id number] Lab Director: Ramiro Mark MD INR Coag (PPP) [Relative time] 0.9 {INR} Normal [facility] Comment on above: Therapeutic Range: Moderate Anticoagulant Intensity: INR = 2.0-3.0 High Anticoagulant Intensity: INR = 2.5-3.5 Result Comment: Therapeutic Range: Moderate Anticoagulant Intensity: INR = 2.0-3.0 High Anticoagulant Intensity: INR = 2.5-3.5 Performed By: #### C P, BNP, PT, CDP, LIP, TROPI #### [facility] [address] [place] [address] [place] [address] Blow Machine Tender Starch Spraying: Ramiro Santillan MD PT Coag (PPP) [Time] 12.2 s Normal 11.7-14.1 [facility] Comment on above: Performed By: #### C P, BNP, PT, CDP, LIP, TROPI #### [facility] [address] [place] [address] Blow Machine Tender Starch Spraying: Ramiro Santillan MD Phosphoruson 09-28-2024 Phosphate [Mass/Vol] 3.2 mg/dL 2.5 - 4 .5 mg/dL [facility] Phosphate [Mass/Vol] 2.8 mg/dL 2.5 - 4 .5 mg/dL [facility] Phosphate [Mass/Vol] 4.9 mg/dL High 2.5 - 4 .5 mg/dL [facility] Phosphorus, Inorg.on 024 Phosphorus, Inorg. 3.2 mg/dL Normal 2.5-4.5 [facility] Comment on above: Performed By: #### P HO, MG, BMP, LACTIC ####[facility] [address] [place], [place] [id number] Lab Director: Ramiro Mark MD Phosphorus, Inorg. 2.8 mg/dL Normal 2.5-4.5 [facility] Comment on above: Performed By: #### P HO, MG, BMP, TROPI, LACTIC ####[facility] [address] [place] [address] Lab Director: Ramiro Mark MD Phosphorus, Inorg. 3.5 mg/dL Normal 2.5-4.5 [facility] Comment on above: Performed By: #### B MP #### [facility] [address] [place] [address] Blow Machine Tender Starch Spraying: Ramiro Santillan MD Phosphorus, Inorg. 4.9 mg/dL High 2.5-4.5 [facility] Comment on above: Performed By: #### L ACTIC #### [facility] [address] [place] [address] Blow Machine Tender Starch Spraying: Ramiro Santillan MD Portable XR Chest AP single viewon 09-28-2024 No acute cardiopulmonary process. Endotracheal tube with the tip in the midtrachea. PN RIS CONSOLIDATED EXAMINATION: ONE XRAY VIEW OF THE CHEST 09/28/2024 11:56 am COMPARISON: Chest radiograph performed 01/19/2024. HISTORY: ORDERING SYSTEM PROVIDED HISTORY: post intubation TECHNOLOGIST PROVIDED HISTORY: post intubation FINDINGS: There is no acute consolidation or effusion. There is no pneumothorax. The mediastinal structures are unremarkable. The upper abdomen is unremarkable. The extrathoracic soft tissues are unremarkable. There is an endotracheal tube with the tip in the midtrachea. The gastric tube has been removed. PN RIS CONSOLIDATED Lito Marie MD - 09/28/2024 EXAMINATION: ONE XRAY VIEW OF THE CHEST 09/28/2024 11:56 am COMPARISON: Chest radiograph performed 01/19/2024. HISTORY: ORDERING SYSTEM PROVIDED HISTORY: post intubation TECHNOLOGIST PROVIDED HISTORY: post intubation FINDINGS: There is no acute consolidation or effusion. There is no pneumothorax. The mediastinal structures are unremarkable. The upper abdomen is unremarkable. The extrathoracic soft tissues are unremarkable. There is an endotracheal tube with the tip in the midtrachea. The gastric tube has been removed. IMPRESSION: No acute cardiopulmonary process. Endotracheal tube with the tip in the midtrachea. [facility] Radiology Study observation (narrative) [facility] Procalcitoninon 09-28-2024 Procalcitonin [Mass/Vol] 0.19 ng/mL High 0.00 - 0.09 ng/mL [facility] Procalcitonin 0.19 ng/mL High 0.00-0.09 [facility] Comment on above: Result Comment: Susp ected Sepsis:<0.50 ng/mL Low likelihood of sepsis.0.50-2.00 ng/mL Increased likelihood of sepsis. Antibiotics encouraged.>2.00 ng/mL High risk of sepsis/shock. Antibiotics strongly encouraged.Suspected Lower Resp Tract Infections:<0.24 ng/mL Low likelihood of bacterial infection.>0.24 ng/mL Increased likelihood of bacterial infection. Antibiotics encouraged.With successful antibiotic therapy, PCT levels should decrease rapidly. (Half-life of 24 to 36 hours.)Procalcitonin values from samples collected within the first 6 hours of systemic infection may still be low. Retesting may be indicated.Values from day 1 and day 4 can be entered into the Change in Procalcitonin Calculator ([email or web address]) to determine the patient's Mortality Risk PrognosisIn healthy neonates, plasma Procalcitonin (PCT) concentrations increase gradually after , reaching peak values at about 24 hours of age then decrease to normal values below 0.5 ng/mL by 48-72 hours of age. Performed By: #### P RCAL, CRP, MYCM, GLYHGB, TROPI, SED, CDP, LACTIC, IOCAL, BMPX ####[facility] [address] [place], [place] [id number] Lab Director: Ramiro Mark MD#### AGLYCO ####[facility] [address] [place] [address] Lab Director: Wil Swanson MD Protime-INRon 09-28-2024 INR Coag (PPP) [Relative time] 1.1 {INR} [facility] Talk [employer] PT Coag (PPP) [Time] 14.3 s Bon [employer] [email or web address] Blog Talk Radio [email or web address] Talk [facility] Resp Viral Panelon 4 Adenovirus Not detected Normal [facility] Comment on above: Performed By: #### R RUBBER GOODS TESTER WATER ####[facility] [address] [place], [place] [id number] Lab Director: MD Marquis Morenot.parapertussis Not detected Normal [facility] Comment on above: Performed By: #### R RUBBER GOODS TESTER WATER ####[facility] [address] [place] [address] Lab Director: MD Marquis Morenotella pertussis Not detected Normal [facility] Comment on above: Performed By: #### R RUBBER GOODS TESTER WATER ####[facility] [address] [place] [address] Lab Director: Ramiro Mark MD Chlamyd.[email or web address] Not detected Normal [facility] Comment on above: Performed By: #### R RUBBER [employer] TESTER WATER ####[address] [address] Lab Director: Ramiro Mark MD Coronavirus 229E Not detected Normal [facility] Comment on above: Performed By: #### R RUBBER GOODS TESTER WATER ####[address] [address] Lab Director: Ramiro Mark MD Coronavirus HKU1 Not detected Normal [facility] Comment on above: Performed By: #### R RUBBER [employer] TESTER WATER ####[address] [address] Lab Director: Ramiro Mark MD Coronavirus NL63 Not detected Normal [facility] Comment on above: Performed By: #### R [employer] TE[employer] WATER ####[address] [phone] Director: Ramiro Mark MD Coronavirus OC43 Not detected [facility] Comment on above: Performed By: #### R RU[employer] TE[employer] WATER ####[address] [phone] Director: Ramiro Mark MD Human Metapneumo Not detected Normal [facility] Comment on above: Performed By: #### R RU[employer]ER [employer] TESTER WATER ####[address] [phone] Director: Ramiro Mark MD Influenza A Not detected [facility] Comment on above: Performed By: #### R RU[employer]ER [employer] TESTER WATER ####[address] [place], [place] [phone] Director: Ramiro Mark MD Influenza B Not detected Normal [facility] Comment on above: Performed By: #### R RU[employer]ER [employer] TE[employer] WATER ####[address] [place], [place] [phone] Director: Ramiro Mark MD Mycoplas.pneumoniae Not detected Normal [facility] Comment on above: Result Comment: Perf ormed by multiplexed nucleic acid assay. Performed By: #### R RU[employer]ER [employer] TESTER WATER ####[address] [address] Lab Director: Ramiro Mark MD Parainfluenza 1 Not detected Normal [facility] Comment on above: Performed By: #### R RU[employer]ER [employer] TESTER WATER ####[address] [address] Lab Director: Ramiro Mark MD Parainfluenza 2 Not detected Normal [facility] Comment on above: Performed By: #### R RU[employer]ER [employer] TESTER WATER ####[address] [address] Lab Director: Ramiro Mark MD Parainfluenza 3 Not detected Normal [facility] Comment on above: Performed By: #### R RU[employer]ER [employer] TE[employer] WATER ####[address] [address] Lab Director: Ramiro Mark MD Parainfluenza 4 Not detected Normal [facility] Comment on above: Performed By: #### R RU[employer]ER [employer] TESTER WATER ####[address] [address] Lab Director: Ramiro Mark MD Resp Syncytial Virus Not detected Normal [facility] Comment on above: Performed By: #### R RU[employer]ER [employer] TE[employer] WATER ####[address] [address] Lab Director: Ramiro Mark MD Rhino/Enterovirus Not detected Normal [facility] Comment on above: Performed By: #### R [employer]ER [employer] TE[employer] WATER ####[address] [place] [address] Lab Director: Ramiro Mark MD SARS-CoV-2 (COVID-19) RNA MEETA+probe Ql (Unsp spec) Not detected Normal [facility] Comment on above: Performed By: #### R RU[employer]ER [employer] TESTER WATER ####[facility] [address] [place] [address] Lab Director: Ramiro Mark MD Source: .NASOPHARYNGEAL SWAB Normal [facility] Comment on above: Performed By: #### R RU[employer]ER [employer] TESTER WATER ####[facility] [address] [place], [place] [phone] lab Director: Ramiro Mark MD Respiratory Panel, Molecular , with COVID-19 (Restricted: peds pts or suitable admitted adults)on 09-28-2024 Adenovirus DNA MEETA+non-probe Ql (Nph) Not detected Not Detected [facility] B. parapertussis [id number] DNA MEETA+non-probe Ql (Nph) Not detected Not Detected [facility] B. pertussis DNA MEETA+probe Ql (Unsp spec) Not detected Not Detected [facility] C. pneumoniae DNA MEETA+non-probe Ql (Nph) Not detected Not Detected [facility] FLUAV RNA MEETA+non-probe Ql (Nph) Not detected Not Detected [facility] FLUBV RNA MEETA+non-probe Ql (Nph) Not detected Not Detected [facility] HCoV 229E RNA MEETA+non-probe Ql (Nph) Not detected Not Detected [facility] HCoV HKU1 RNA MEETA+non-probe Ql (Nph) Not detected Not Detected [facility] HCoV NL63 RNA MEETA+non-probe Ql (Nph) Not detected Not Detected [facility] HCoV OC43 RNA MEETA+non-probe Ql (Nph) Not detected Not Detected [facility] hMPV RNA MEETA+non-probe Ql (Nph) Not detected Not Detected [facility] M. pneumoniae DNA MEETA+non-probe Ql (Nph) Not detected Not Detected [facility] Parainfluenza virus 1 RNA MEETA+non-probe Ql (Nph) Not detected Not Detected [facility] Parainfluenza virus 2 RNA MEETA+non-probe Ql (Nph) Not detected Not Detected [facility] Parainfluenza virus 3 RNA MEETA+non-probe Ql (Nph) Not detected Not Detected [facility] Parainfluenza virus 4 RNA MEETA+non-probe Ql (Nph) Not detected Not Detected [facility] Rhinovirus+Enterovirus RNA MEETA+non-probe Ql (Nph) Not detected Not Detected [facility] RSV RNA MEETA+non-probe Ql (Nph) Not detected Not Detected [facility] SARS-CoV-2 (COVID-19) RNA MEETA+non-probe Ql (Nph) Not detected Not Detected [facility] Specimen Description .NASOPHARYNGEAL SWAB [facility] Sedimentation Rateon 024 ESR Photometric method (Bld) [Velocity] 24 High [facility] Interpretation and review of laboratory results Abnormal [facility] Sedimentation Rate 24 mm/Hr High 0-20 [facility] Comment on above: Performed By: #### P RCAL, CRP, MYCM, GLYHGB, TROPI, SED, CDP, LACTIC, IOCAL, BMPX ####[employer] [address] [place], [place] [id number] Lab Director: Ramiro Mark MD#### AGLYCO ####[facility] [address] [place], [place] [id number] Lab Director: Wil Swanson MD Strep Pneumoniae Antigenon 1 11-29-2023 S. pneumoniae Ag Ql (Unsp spec) Negative [facility] Specimen source Nom (Unsp spec) .URINE [facility] Strep pneum Ag,CSF/Uron - Strep pneum Ag Negative [facility] Comment on above: Result Comment: Stre p pneumoniae antigen not detected Performed By: #### S PNAG ####[employer] [address] [place], [place] [id number] Lab Director: Ramiro Mark MD Strep pneu Ag Source .URINE Normal [facility] Comment on above: Performed By: #### S PNAG ####[facility] [address] [place], [place] [id number] lab Director: Ramiro Mark MD TYPE AND SCREENon 09-28-2024 ABO and Rh group Nom (Bld) Blood group O Rh(D) positive [facility] Arm Band Number [id number] [facility] Blood Bank Sample Expiration 10/01/2024,2359 [facility] Blood group antibodies identified Nom Negative [facility] Troponinon 09-28-2024 Troponin I.cardiac High sensitivity method [Mass/Vol] 93 ng/L Critically high 0 - 22 ng/L [facility] Troponin, High Sens 93 ng/L Critically high 0-22 [facility] Comment on above: Result Comment: High Sensitivity Troponin values cannot be compared with other Troponin methodologies.Previous Alert Value Reported Performed By: #### P HO, MG, BMP, TROPI, LACTIC ####[facility] [address] [place] [address] Lab Director: Ramiro Mark MD Interpretation and review of laboratory results Abnormal [facility] Troponin I.cardiac High sensitivity method [Mass/Vol] 98 ng/L Critically high 0 - 22 ng/L [facility] Troponin, High Sens 98 ng/L Critically high 0-22 [facility] Comment on above: Result Comment: High Sensitivity Troponin values cannot be compared with other Troponin methodologies.Previous Alert Value Reported Performed By: #### T ROPI ####[facility] [address] [place] [address] Lab Director: Ramiro Mark MD Troponin I.cardiac High sensitivity method [Mass/Vol] 97 ng/L Critically high 0 - 22 ng/L [facility] Troponin, High Sens 97 ng/L Critically high 0-22 [facility] Comment on above: Result Comment: High Sensitivity Troponin values cannot be compared with other Troponin methodologies. Performed By: #### P RCAL, CRP, MYCM, GLYHGB, TROPI, SED, CDP, LACTIC, IOCAL, BMPX ####[facility] [address] [place] [address] Lab Director: Ramiro Mark MD#### AGLYCO ####[facility] [address] [place] [address] Lab Director: Wil Swanson MD Interpretation and review of laboratory results Abnormal [facility] Troponin I.cardiac High sensitivity method [Mass/Vol] 65 ng/L Critically high 0 - 22 ng/L [facility] Comment on above: Specimen hemolysis h as exceeded the interference as defined by Jaime. Value may be falsely decreased. Suggest recollection if clinically indicated. High Sensitivity Troponin values cannot be compared with other Troponin methodologies. [facility] Troponin, High Sens 65 ng/L Critically high 0-22 [facility] Comment on above: Result Comment: Spec imen hemolysis has exceeded the interference as defined by Jaime. Value may be falsely decreased. Suggest recollection if clinically indicated. High Sensitivity Troponin values cannot be compared with other Troponin methodologies. Performed By: #### B MP #### [facility] [address] [place] [address] [place] [address] Blow Machine Tender Starch Spraying: Ramiro Santillan MD Interpretation and review of laboratory results Abnormal [facility] Troponin I.cardiac High sensitivity method [Mass/Vol] 53 ng/L Critically high 0 - 22 ng/L [facility] Comment on above: High Sensitivity Tro ponin values cannot be compared with other Troponin methodologies. [facility] Troponin, High Sens 53 ng/L Critically high 0-22 [facility] Comment on above: Result Comment: High Sensitivity Troponin values cannot be compared with other Troponin methodologies. Performed By: #### B MP #### [facility] [address] [place] [address] [place] [address] B[employer] Machine Tender Starch Spraying: Ramiro Santillan MD Troponin I.cardiac High sensitivity method [Mass/Vol] 64 ng/L Critically high 0 - 22 ng/L [facility] Comment on above: High Sensitivity Tro ponin values cannot be compared with other Troponin methodologies. Troponin, High Sens 64 ng/L Critically high 0-22 [facility] Comment on above: Result Comment: High Sensitivity Troponin values cannot be compared with other Troponin methodologies. Performed By: #### B H #### [facility] [address] [place], [place] [phone] B[employer] Machine T[employer] Spraying: Ramiro Santillan MD Type + Screenon 09-28-2024 Type + Screen Sample Expiration 10/01/2024,2359 Arm Band Number [id number] ABO/Rh(D) O POSITIVE Antibody Screen NEGATIVE Normal [facility] Comment on above: Performed By: #### T YS #### [facility] [address] [place], [place] [phone] B[employer] Machine Tender [employer] Spraying: Ramiro Santillan MD UA w/Reflex Cultureon 2023 Bilirubin, SemiQt,Ur Negative Normal NEG [facility] Comment on above: Performed By: #### U AX, UMICAO #### [facility] [address] [place], [place] [phone] Blow Machine Tender Starch Spraying: Ramiro Santillan MD Blood, Urine 2+ Abnormal NEG [facility] Comment on above: Performed By: #### U AX, UMICAO #### [facility] [address] [place], [place] [phone] B[employer] Machine Tender [employer]arch Spraying: Ramiro Santillan MD Clarity (U) Clear Normal CLEAR [facility] Comment on above: Performed By: #### U AX, UMICAO #### [facility] [address] [place] [address] Blow Machine Tender Starch Spraying: Ramiro Santillan MD Color (U) Yellow Normal YEL [facility] Comment on above: Performed By: #### U AX, UMICAO #### [facility] [address] [place], [place] [phone] B[employer] Machine Tender [employer]arch Spraying: Ramiro Santillan MD Glucose Ql (U) 3+ mg/dL Abnormal NEG [facility] Comment on above: Performed By: #### U AX, UMICAO #### [facility] [address] [place] [address] [place], [place] [phone] B[employer] Machine Tender [employer]arch Spraying: Ramiro Santillan MD Ketones Ql (U) 1+ mg/dL Abnormal NEG [facility] Comment on above: Performed By: #### U AX, UMICAO #### [facility] [address] [place] [address] [place] [address] Blow Machine Tender [employer]arch Spraying: Ramiro Santillan MD Leukocyte esterase Test strip Ql (U) Negative Normal NEG [facility] Comment on above: Performed By: #### U AX, UMICAO #### [address] [place] [address] Blow Machine Tender Starch Spraying: Ramiro Santillan MD Nitrite,Ur Negative Normal NEG [facility] Comment on above: Performed By: #### U AX, UMICAO #### [facility] [address] [place] [address] [place], [place] [phone] B[employer] Spraying: Ramiro Santillan MD PH,Ur 6.5 Normal 5.0-9.0 [facility] Comment on above: Performed By: #### U AX, UMICAO #### [facility] [address] [place] [address] [place] [address] B[employer] Machine Tender [employer]arch Spraying: Ramiro Santillan MD Protein Ql (U) 4+ mg/dL Abnormal NEG [facility] Comment on above: Performed By: #### U AX, UMICAO #### [facility] [address] [place] [address] [place] [address] B[employer] Machine Tender Starch Spraying: Ramiro Santillan MD Spec. [place],Ur 1.015 Normal 1.010-1.020 [facility] Comment on above: Performed By: #### U AX, UMICAO #### [facility] [address] [place] [address] [place] [address] Blow Machine Tender Starch Spraying: Ramiro Santillan MD Urobilinogen,Ur Normal Normal 0.0-1.0 [facility] Comment on above: Performed By: #### U NARCISO MARES #### [facility] [address] [place] [address] Blow Machine Tender [employer]arch Spraying: Ramiro Santillan MD Kidneyon 09-28-2024 Radiology Study observation (narrative) [facility] Urinalysis with Reflex to Cu ltureon 09-28-2024 Bilirubin Ql (U) Negative NEGATIVE [facility] Clarity (U) Clear Clear [facility] Color (U) Yellow Yellow [facility] Glucose Test strip (U) [Mass/Vol] 3+ Abnormal NEGATIVE mg/dL [facility] Hemoglobin Auto test strip Ql (U) 2+ Abnormal NEGATIVE [facility] Interpretation and review of laboratory results Abnormal [facility] Ketones (U) [Mass/Vol] 1+ Abnormal NEGAT RAJAN mg/dL [facility] Leukocyte esterase Test strip Ql (U) Negative NEGATIVE [facility] Nitrite Ql (U) Negative NEGATIVE [facility] pH (U) 6.5 [pH] 5.0 - 9.0 [facility] Protein (U) [Mass/Vol] 4+ Abnormal NEGAT RAJAN mg/dL [facility] Specific gravity (U) [Rel density] 1.015 1.010 - 1.020 [facility] Urobilinogen Qn (U) Normal 0.0 - 1. 0 EU/dL [facility] Urinalysis,Microon 4 Epithelial cells LM Ql (Urine sed) 0 TO 2 Normal 0-5 [facility] Comment on above: Performed By: #### U NARCISO MARES #### [facility] [address] [place] [address] B[employer] Machine Tender Starch Spraying: Ramiro Santillan MD Urine RBC's 2 TO 5 Normal 0-2 [facility] Comment on above: Performed By: #### U JOEY MARESICAO #### [facility] [address] [place] [address] Blow Machine Tender Starch Spraying: Ramiro Santillan MD Urine WBC's 0 TO 2 Normal 0-5 [facility] Comment on above: Performed By: #### U AX, NARCISO #### [facility] [address] [place] [address] Blow Machine Tender Starch Spraying: Ramiro Santillan MD Urine Drug Screenon 09-28-20 24 Amphetamines Ql (U) Negative NEGATIVE [facility] Comment on above: Cutoff: 1000 ng/mL Barbiturates Screen Ql (U) Negative NEGATIVE [facility] Comment on above: Cutoff: 200 ng/ml Benzodiazepines Ql (U) Negative NEGATIVE [facility] Comment on above: Cutoff: 200 ng/ml Buprenorphine Ql (U) Negative NEGATIVE [facility] Comment on above: Cutoff: 5 ng/ml Cannabinoids Screen Ql (U) Negative NEGATIVE [facility] Comment on above: Cutoff: 50 ng/ml Cocaine Ql (U) Negative NEGATIVE [facility] Comment on above: Cutoff: 300 ng/ml fentaNYL Ql (U) Negative NEGATIVE [facility] Comment on above: Cutoff: 5 ng/ml Methadone Ql (U) Negative NEGATIVE [facility] Comment on above: Cutoff: 300 ng/ml Opiates Screen Ql (U) Negative NEGATIVE [facility] Comment on above: Cutoff: 300 ng/ml Note: The Opiate screen is not intended to detect Oxycodone. oxyCODONE Ql (U) Negative NEGATIVE [facility] Comment on above: Cutoff: 100 ng/ml Phencyclidine Ql (U) Negative NEGATIVE [facility] Comment on above: Cutoff: 25 ng/ml Test Information This method is a screening test to detect only these drug classes as part of a medical workup. Confirmatory testing by another method should be ordered if clinically indicated. [facility] Venous Blood Gaseson 024 Jody Test NOT APPLICABLE Normal [facility] Comment on above: Performed By: #### B MP #### [facility] [address] [place], [place] [phone] B[employer] Machine Tender Starch Spraying: Ramiro Santillan MD Body Temp. 37.0 Normal [facility] Comment on above: Performed By: #### B MP #### [facility] [address] [place], [place] [phone] B[employer] Machine Tender Starch Spraying: Ramiro Santillan MD FIO2 35 Normal [facility] Comment on above: Performed By: #### B MP #### [facility] [address] [place] [address] Blow Machine Tender Starch Spraying: Ramiro Santillan MD HCO3 (Bld) [Moles/Vol] 21.0 mmol/L Low 24.0-30.0 M [facility] Comment on above: Performed By: #### B MP #### [facility] [address] [place], [place] 1601383 B[employer] Machine Tender Starch Spraying: Ramiro Santillan MD Negative Base Excess 4.3 mmol/L High 0.0-2.0 [facility] Comment on above: Performed By: #### B MP #### [facility] [address] [place] [address] Blow Machine Tender Starch Spraying: Ramiro Santillan MD O2 Device/Flow/% VENTILATOR Normal [facility] Comment on above: Performed By: #### B MP #### [facility] [address] [place], [place] 2803283 B[employer] Machine Tender Starch Spraying: Ramiro Santillan MD Oxygen saturation in Blood 99.0 % High 60.0-85.0 [facility] Comment on above: Performed By: #### B MP #### [facility] [address] [place] [address] Blow Machine Tender Starch Spraying: Ramiro Santillan MD pCO2 39.8 mm Hg Normal 39-55 [facility] Comment on above: Performed By: #### B MP #### [facility] [address] [place], [place] 1756283 B[employer] Machine Tender Starch Spraying: Ramiro Santillan MD Pco2 Adj'd for Temp. 39.8 mmHg Normal 39.0-55.0 [facility] Comment on above: Performed By: #### B MP #### [facility] [address] [place], [place] [address]83 Blow Machine Tender Starch Spraying: Ramiro Santillan MD pH (Bld) 7.341 [pH] Normal 7.32-7.42 [facility] Comment on above: Performed By: #### B MP #### [facility] [address] [place], [place] 2615783 Blow Machine Tender Starch Spraying: Ramiro Santillan MD pH Adjst'd for Temp. 7.341 Normal 7.320-7.420 [facility] Comment on above: Performed By: #### B MP #### [facility] [address] [place], [place] [address]33[address] Blow Machine Tender Starch Spraying: Ramiro Santillan MD pO2 164.8 mm Hg High 30.0-50.0 [facility] Comment on above: Performed By: #### B MP #### [address] [place], [place] [address]32883 B[employer] Machine Tender Starch Spraying: Ramiro Santillan MD pO2 Adj'd for Temp. 164.8 mmHg High 30.0-50.0 [facility] Comment on above: Performed By: #### B MP #### [facility] [address] [place] [address] Dr. [place], [place] 0955483 B[employer] Machine Tender Starch Spraying: Ramiro Santillan MD XR ABDOMEN FOR NG/OG/NE TUBE PLACEMENTon 09-28-2024 XR ABDOMEN FOR NG/OG/NE TUBE PLACEMENT [facility] MHPN RIS CONSOLIDATED MHPN RIS CONSOLIDATED [facility] Radiology Study observation (narrative) [facility] XR ABDOMEN FOR NG/OG/NE TUBE PLACEMENTOrdered By: Nawaf Perez on 09-28-2024 [facility] Work Phone: XR CHEST PORTABLEon 09-28-20 XR CHEST PORTABLE EXAMINATION: ONE XRAY VIEW OF THE CHEST 09/28/2024 11:56 am COMPARISON: Chest radiograph performed 01/19/2024. HISTORY: ORDERING SYSTEM PROVIDED HISTORY: post intubation TECHNOLOGIST PROVIDED HISTORY: post intubation FINDINGS: There is no acute consolidation or effusion. There is no pneumothorax. The mediastinal structures are unremarkable. The upper abdomen is unremarkable. The extrathoracic soft tissues are unremarkable. There is an endotracheal tube with the tip in the midtrachea. The gastric tube has been removed. IMPRESSION: No acute cardiopulmonary process. Endotracheal tube with the tip in the midtrachea. Interpreted by: Lito Marie MD Signed by: Lito Marie MD 09/28/24 Final result Normal [facility] Physician Referralon 024 Physician Referral [id number] IFF Normal [facility] Physician Referralon 024 Physician Referral [id number] IFF Normal [facility] Q Fever Serology,IFAon 01-27 Q-Fever,Phase I IgG Negative Normal [facility] Comment on above: Result Comment: (NOT E)INTERPRETIVE INFORMATION: C. Burnetii Abs, IgG Phase I ScreenAcute Q fever is best demonstrated by a four-fold rise in phase IIIgG titers when comparing two serum samples collected 3-6 weeksapart, and testing is performed in the same laboratory at the sametime. Phase I IgG titers can increase during seroconversion.However, in the case of acute infection, the phase I IgG titershould remain lower than the phase II titer. In the absence of anacute sample, a single convalescent serum sample with a phase IIIgG titer greater than 1:128 in a patient who has been ill greaterthan 1 week, indicates probable acute Q fever.Chronic Q fever is best demonstrated by a phase I IgG titergreater than the phase II IgG titer. Phase I and phase II IgGtiters may remain elevated for months or years after acuteinfection or during convalescence.Coxiella burnetii (Q-Fever) Antibody IgG, Phase I is negative. Nofurther testing will be performed. Performed By: #### A QFEV ####[address] [address] lab Director: Wil Swanson MD Q-Fever,Phase II IgG Negative Normal Negative [facility] Comment on above: Result Comment: (NOT E)INTERPRETIVE INFORMATION: C. Burnetii Abs, IgG Phase II ScreenAcute Q fever is best demonstrated by a four-fold rise in phase IIIgG titers when comparing two serum samples collected 3-6 weeksapart, and testing is performed in the same laboratory at the sametime. Phase I IgG titers can increase during seroconversion.However, in the case of acute infection, the phase I IgG titershould remain lower than the phase II titer. In the absence of anacute sample, a single convalescent serum sample with a phase IIIgG titer greater than 1:128 in a patient who has been ill greaterthan 1 week, indicates probable acute Q fever.Chronic Q fever is best demonstrated by a phase I IgG titergreater than the phase II IgG titer. Phase I and phase II IgGtiters may remain elevated for months or years after acuteinfection or during convalescence.Coxiella burnetii (Q-Fever) Antibody IgG, Phase II is negative.No further testing will be performed.Performed By: [facility] [place] [id number] Director: Rogelio Miranda MD, PhDCLIA Number: [id number] Performed By: #### A QFEV ####[address] [address] lab Director: Wil Swanson MD Cult,Bloodon 01-24-2024 Cult,Blood Specimen Description .BLOOD Special Requests L HAND 5 ML Culture NO GROWTH 5 DAYS Report Status FINAL 01/24/2024 [facility] Comment on above: Performed By: #### B C ####[address] [address] Lab Director: Ramiro Mark MD Cult,Blood Specimen Description .BLOOD Special Requests R HAND 5 ML Culture NO GROWTH 5 DAYS Report Status FINAL 01/24/2024 [facility] Comment on above: Performed By: #### B C ####[facility] [place] [address] Lab Director: Ramiro Mark MD Brucella Ab, IgG/IgMon 01-22 Brucella Ab, IgG/M <1:20 Normal <1:20 [facility] Comment on above: Result Comment: (NOT E)INTERPRETIVE INFORMATION: Brucella Ab (Total) by AgglutinationCross-reactions may occur between Brucella and F. tularensisantigens and antisera; therefore, parallel tests should be runwith these antigens. A fourfold rise in titer is considereddiagnostic. A single serum titer of 1:80 or 1:160 is suggestive ofbrucellosis when accompanied by a compatible clinical course in apatient with a history of potential exposures.Performed By: [facility] [place], [place] [address]Pxvyfhvjtw Director: Rogelio Miranda MD, PhDCLIA Number: [id number] Performed By: #### A BRUAB ####[facility] [place] [address] Lab Director: Wil Swanson MD West Nile Virus, CSFon 01-22 WNV Ab IgG, CSF 0.05 IV Normal <=1.29 [facility] Comment on above: Result Comment: (NOT E)INTERPRETIVE INFORMATION: West Nile Virus Ab IgG by [...] virus detected, suggestive of current or past infection.This test is intended to be used as a semi-quantitative means ofdetecting West Nile virus-specific IgG in CSF samples in whichthere is a clinical suspicion of West Nile Virus infection. Thistest should not be used solely for quantitative purposes, norshould the results be used without correlation to clinical historyor other data. Because other members of the Flaviviridae family,such as Carteret encephalitis virus, show extensivecross-reactivity with West Nile virus, serologic testing specificfor these species should be considered.The detection of antibodies to West Nile virus in cerebrospinalfluid may indicate central nervous system infection. However,consideration must be given to possible contamination by blood ortransfer of serum antibodies across the blood-brain barrier.This test was developed and its performance characteristicsdetermined by [facility]. It has not been cleared orapproved by the [place] Food and Drug Administration. This test wasperformed in a CLIA certified laboratory and is intended forclinical purposes. Performed By: #### C TP, CGLU, MEVP, CFVD, CFCNT ####[facility] HospitalEduoraYncaaqrrmtsy5[address] [place] [address] Lab Director: Ramiro Mark MD#### AWNCSF, ALYMCT ####[employer] [address] [place] [address] Lab Director: Wil Swanson MD WNV Ab IgM, CSF 0.00 IV Normal <=0.89 [facility] Comment on above: Result Comment: (NOT E)INTERPRETIVE INFORMATION: West Nile Virus Ab IgM by AL, CSF0.89 IV or less ...... Negative - No significant level of West Nile virus IgM antibody detected.0.90-1.10 IV ......... Equivocal - Questionable presence of West Nile virus IgM antibody detected. Repeat testing in 10-14 days may be helpful.1.11 IV or greater ... Positive - Presence of IgM antibody to West Nile virus detected, suggestive of current or recent infection.This test is intended to be used as a semi-quantitative means ofdetecting West Nile virus-specific IgM in CSF samples in whichthere is a clinical suspicion of West Nile virus infection. Thistest should not be used solely for quantitative purposes, norshould the results be used without correlation to clinical historyor other data. Because other members of the Flaviviridae family,such as Carteret encephalitis virus, show extensivecross-reactivity with West Nile virus, serologic testing specificfor these species should be considered.The detection of antibodies to West Nile virus in cerebrospinalfluid may indicate central nervous system infection. However,consideration must be given to possible contamination by blood ortransfer of serum antibodies across the blood-brain barrier.This test was developed and its performance characteristicsdetermined by [facility]. It has not been cleared orapproved by the [place] Food and Drug Administration. This test wasperformed in a CLIA certified laboratory and is intended forclinical purposes.Performed By: [facility] [place], [place] [address]Eztcnlihay Director: Rogelio Miranda MD, PhDCLIA Number: [id number] Performed By: #### C TP, CGLU, MEVP, CFVD, CFCNT ####[facility] [place] [address] Lab Director: Ramiro Mark MD#### AWNCSF, ALYMCT ####[facility] [address] [place] [address] Lab Director: Wil Swanson MD Basic Metabolic Panelon 0 Anion gap [Moles/Vol] 9 mmol/L 9 - 16 mmol/L [facility] Calcium [Mass/Vol] 8.3 mg/dL Low 8.6 - 10. 4 mg/dL [facility] [employer] Chloride [Moles/Vol] 105 mmol/L 98 - 10 7 mmol/L [facility] [employer] CO2 [Moles/Vol] 22 mmol/L 20 - 31 mmol/L [facility]'SBl[facility] Side EntertainmentMER[facility] Creatinine [Mass/Vol] 1.3 mg/dL High 0.70 - 1.20 mg/dL [facility] GFR/1.73 sq M.predicted MDRD (S/P/Bld) [Vol rate/Area] 69 mL/min/{1.73_m2} - PINF [facility] [employer] Glucose [Mass/Vol] 225 mg/dL High 74 - 99 mg/dL [facility]'SNuv[facility] Interpretation and review of laboratory results Abnormal [facility] Potassium [Moles/Vol] 3.8 mmol/L 3.7 - 5.3 mmol/L [facility] Sodium [Moles/Vol] 136 mmol/L 136 - 145 mmol/L [facility] Urea nitrogen [Mass/Vol] 25 mg/dL High 6 - 20 mg/dL [facility] Basic Metabolic Profon 01-21 Anion gap [Moles/Vol] 9 mmol/L Normal 9-16 [facility] Comment on above: Performed By: #### M G, BMP, CHELO, CDP ####[facility] [address] [place], [place] [address])[phone] Director: Ramiro Mark MD Calcium [Mass/Vol] 8.3 mg/dL Low 8.6-10.4 [facility] Comment on above: Performed By: #### M G, BMP, CHELO, CDP ####[facility] HospitalLOOKSIMA Dxqyshdcnpck2387 [place], [place] [id number])[phone] Director: Ramiro Mark MD Chloride [Moles/Vol] 105 mmol/L Normal 98-107 [facility] Comment on above: Performed By: #### M G, BMP, CHELO, CDP ####[employer] [address]arpfcub[address] [place], [place] [id number])[phone] Director: Ramiro Mark MD CO2 [Moles/Vol] 22 mmol/L Normal 20-31 [facility] Comment on above: Performed By: #### M G, BMP, CHELO, CDP ####[employer] [address]vupllxv[address] [place] [address] Lab Director: Ramiro Mark MD Creatinine [Mass/Vol] 1.3 mg/dL High 0.70-1.20 [facility] Comment on above: Performed By: #### M G, BMP, CHELO, CDP ####[facility] HospitalLOOKSIMA [address]jtbjvgqizs7[address] [place], [place] [address])[phone] Director: Ramiro Mark MD GFR/1.73 sq M.predicted among non-blacks MDRD (S/P/Bld) [Vol rate/Area] 69 mL/min/{1.73_m2} Normal >60 [facility] Comment on above: Result Comment: Thes e results are not intended for use in patients <18 years of age.eGFR results are calculated without a race factor using the 2020 CKD-EPI equation.Careful clinical correlation is recommended, particularly when comparing to results calculated using previous equations.The CKD-EPI equation is less accurate in patients with extremes of muscle mass, extra-renal metabolism of creatine, excessive creatine ingestion, or following therapy that affects renal tubular secretion. Performed By: #### M LEENA Arana, CHELO, CDP ####[facility] [address] [place], [place] [address])[phone] Director: Ramiro Mark MD Glucose [Mass/Vol] 225 mg/dL High 74-99 [facility] Comment on above: Performed By: #### LEENA Purcell, CHELO, CDP ####[facility] [address]axdwb[address] [place], [place] [address])[phone] Director: Ramiro Mark MD Potassium [Moles/Vol] 3.8 mmol/L Normal 3.7-5.3 [facility] Comment on above: Performed By: #### LEENA Purcell, CHELO, CDP ####[facility] J[address] [place], [place] [address])[phone] Director: Ramiro Mark MD Sodium [Moles/Vol] 136 mmol/L Normal 136-145 [facility] Comment on above: Performed By: #### LEENA Purcell, CHELO, CDP ####[facility] [address]fi[address] [place], [place] [address])[phone] Director: Ramiro Mark MD Urea nitrogen [Mass/Vol] 25 mg/dL High 6-20 [facility] Comment on above: Performed By: #### LEENA Purcell, CHELO, CDP ####[facility] [address] [place], [place] [address])[phone] Director: Ramiro Mark MD CBC with Auto Differentialon 01-22-2024 Basophils (Bld) [#/Vol] 0.05 10*3/uL [facility] Basophils/100 WBC (Bld) 1 % 0 - 2 % [facility] Eosinophils (Bld) [#/Vol] 0.18 10*3/uL [facility] Eosinophils/100 WBC (Bld) 2 % 1 - 4 % [facility] Erythrocyte distribution width (RBC) [Ratio] 13.9 % 11.8 - 14.4 % [facility] Hematocrit (Bld) [Volume fraction] 31.6 % Low 40.7 - 50.3 % [facility] Hemoglobin (Bld) [Mass/Vol] 10.2 g/dL Low 13.0 - 17.0 g/dL [facility] Immature granulocytes (Bld) [#/Vol] [facility] Immature granulocytes/100 WBC (Bld) 0 % 0 [facility] Interpretation and review of laboratory results Abnormal [facility] Lymphocytes/100 WBC (Bld) 21 % Low 24 - 43 % [facility] Lymphocytes/100 WBC (Bld) 1.58 % [facility] MCH (RBC) [Entitic mass] 29.3 pg 25.2 - 33.5 pg [facility] MCHC (RBC) [Mass/Vol] 32.3 g/dL 28.4 - 34.8 g/dL [facility] MCV (RBC) [Entitic vol] 90.8 fL 82.6 - 102.9 fL [facility] Monocytes/100 WBC (Bld) 7 % 3 - 12 % [facility] Monocytes/100 WBC (Bld) 0.52 % [facility] Neutrophils/100 WBC (Bld) 69 % High 36 - 65 % [facility] Nucleated RBC/100 WBC (Bld) [Ratio] 0.0 % 0.0 per 100 WBC [facility] Platelet mean volume (Bld) [Entitic vol] 10.8 fL 8.1 - 13.5 fL [facility] Platelets (Bld) [#/Vol] 164 10*3/uL [facility] RBC (Bld) [#/Vol] 3.48 10*6/uL Low 4.21 - 5.7 7 m/uL [facility] Segmented neutrophils/100 WBC (Bld) 5.02 % [facility] WBC other (Bld) [#/Vol] 7.4 [facility] CBC with Diffon 01-22-2024 Abs. Basophil 0.05 k/uL Normal 0.00-0.20 [facility] Comment on above: Performed By: #### M G, BMP, CHELO, CDP ####[facility] [address]tx[address]xsbwh[address] [place], [place] [address])[phone] Director: Ramiro Mark MD Abs.Imm.Granulocyte <0.03 Normal 0.00-0.30 [facility] Comment on above: Performed By: #### M G, BMP, CHELO, CDP ####[facility] [address] [place], [place] [address])[phone] Director: Ramiro Mark MD Abs.Neutrophil (Seg) 5.02 k/uL Normal 1.50-8.10 [facility] Comment on above: Performed By: #### M G, BMP, CHELO, CDP ####[facility] [address]jeffmtobiyc[address] [place], [place] [address])[phone] Director: Ramiro Mark MD Basophils/100 WBC (Bld) 1 % Normal 0-2 [facility] Comment on above: Performed By: #### M G, BMP, CHELO, CDP ####[facility] [address]ipmtufz65[address] [place], [place] [address])[phone] Director: Ramiro Mark MD Eosinophils (Bld) [#/Vol] 0.18 10*3/uL Normal 0.00-0.44 [facility] Comment on above: Performed By: #### M G, BMP, CHELO, CDP ####[facility] [address]frlqpnlyd8[address] [place], [place] [address])[phone] Director: Ramiro Mark MD Eosinophils/100 WBC (Bld) 2 % Normal 1-4 [facility] Comment on above: Performed By: #### M G, BMP, CHELO, CDP ####[employer] [address]bowcneavixn[address] [place], [place] [id number])[phone] Director: Ramiro Mark MD Erythrocyte distribution width (RBC) [Ratio] 13.9 % Normal 11.8-14.4 [facility] Comment on above: Performed By: #### M G, BMP, CHELO, CDP ####[facility] [address] [place], [place] [address])[phone] Director: Ramiro Mark MD Hematocrit (Bld) [Volume fraction] 31.6 % Low 40.7-50.3 [facility] Comment on above: Performed By: #### M G, BMP, CHELO, CDP ####[facility] [address]df[address]tu35[address] [place], [place] [address])[phone] Director: Ramiro Mark MD Hemoglobin (Bld) [Mass/Vol] 10.2 g/dL Low 13.0-17.0 [facility] Comment on above: Performed By: #### M G, BMP, CHELO, CDP ####[facility] [address] [place], [place] [address])[phone] Director: Ramiro Mark MD Immature granulocytes/100 WBC (Bld) 0 % Normal 0 [facility] Comment on above: Performed By: #### M G, BMP, CHELO, CDP ####[facility] [address] [place], [place] [address])[phone] Director: Ramiro Mark MD Lymphocytes (Bld) [#/Vol] 1.58 10*3/uL Normal 1.10-3.70 [facility] Comment on above: Performed By: #### M G, BMP, CHELO, CDP ####[facility] [address]srvvfxsrg[address] [place], [place] [id number])[phone] Director: Ramiro Mark MD Lymphocytes/100 WBC (Bld) 21 % Low 24-43 [facility] Comment on above: Performed By: #### M G, BMP, CHELO, CDP ####[facility] Q[address]pr[address]74[address] [place], [place] [id number])[phone] Director: Ramiro Mark MD MCH (RBC) [Entitic mass] 29.3 pg Normal 25.2-33.5 [facility] Comment on above: Performed By: #### M G, BMP, CHELO, CDP ####[facility] Q[address] [place], [place] [id number])[phone] Director: Ramiro Mark MD MCHC (RBC) [Mass/Vol] 32.3 g/dL Normal 28.4-34.8 [facility] Comment on above: Performed By: #### M G, BMP, CHELO, CDP ####[facility] [address] [place] [address] [id number])[phone] Director: Ramiro Mark MD MCV (RBC) [Entitic vol] 90.8 fL Normal 82.6-102.9 [facility] Comment on above: Performed By: #### M G, BMP, CHELO, CDP ####[facility] [address] [place] [address] [id number])[phone] Director: Ramiro Mark MD Monocytes (Bld) [#/Vol] 0.52 10*3/uL Normal 0.10-1.20 [facility] Comment on above: Performed By: #### M G, BMP, CHELO, CDP ####[facility] [address] [place] [address] [id number])[phone] Director: Ramiro Mark MD Monocytes/100 WBC (Bld) 7 % Normal 3-12 [facility] Comment on above: Performed By: #### M G, BMP, CHELO, CDP ####[facility] [address] [place], [place] [id number])[phone] Director: Ramiro Mark MD Neutrophil (Seg) 69 % High 36-65 [facility] Comment on above: Performed By: #### M G, BMP, CHELO, CDP ####[facility] [address] [place] [address], [place] [id number])[phone] Director: Ramiro Mark MD NRBC Automated 0.0 per 100 WBC Normal 0.0 [facility] Comment on above: Performed By: #### M G, BMP, CHELO, CDP ####[facility] Upt[address]x6396 [place] [address] Lab Director: Ramiro Mark MD Platelet mean volume (Bld) [Entitic vol] 10.8 fL Normal 8.1-13.5 [facility] Comment on above: Performed By: #### M G, BMP, CHELO, CDP ####[address] [address] Lab Director: Ramiro Mark MD Platelets (Bld) [#/Vol] 164 10*3/uL Normal 138-453 [facility] Comment on above: Performed By: #### M G, BMP, CHELO, CDP ####[address] [address] Lab Director: Ramiro Mark MD RBC (Bld) [#/Vol] 3.48 10*6/uL Low 4.21-5.77 [facility] Comment on above: Performed By: #### M G, BMP, CHELO, CDP ####[address] [address] Lab Director: Ramiro Mark MD WBC (Bld) [#/Vol] 7.4 10*3/uL Normal 3.5-11.3 [facility] Comment on above: Performed By: #### M G, BMP, CHELO, CDP ####[address] [address] Lab Director: Ramiro Mark MD Cult,CSFon 01-22-2024 Cult,CSF [facility] Comment on above: Performed By: #### C FC ####[address] [id number] lab Director: Ramiro Mark MD Culture, CSFon 01-22-2024 Microorganism identified Cx Nom (Unsp spec) NO GROWTH 3 DAYS [facility] Microorganism or agent identified Nom (Unsp spec) RARE NEUTROPHILS [facility] Microorganism or agent identified Nom (Unsp spec) NO ORGANISMS SEEN [facility] Microorganism or agent identified Nom (Unsp spec) Gram stain made from cytocentrifuged specimen. Organisms and cells will be concentrated. [facility] Specimen Description .CSF [facility] Glucose,Whole Bloodon 2023 Glucose [Mass/Vol] 164 mg/dL High 75-110 [facility] Glucose [Mass/Vol] 293 mg/dL High -110 [facility] Glucose [Mass/Vol] 172 mg/dL [address] [facility] HSV DNA, PCRon 01-22-2024 HSV 1 subtype by PCR Not detected Normal [facility] Comment on above: Performed By: #### A HSVPC ####[facility] [address] [place] [address] lab Director: Ramiro Mark MDA[address] [address] lab Director: Wil Swanson MD HSV 2 subtype by PCR Not detected Normal [facility] Comment on above: Result Comment: (NOT E)INTERPRETIVE INFORMATION: HSV-1 and HSV- 2 Subtype by PCRA negative result does not rule out the presence of PCR inhibitorsin the patient specimen or test-specific nucleic acid inconcentrations below the level of detection by this test.This test was developed and its performance characteristicsdetermined by [facility]. It has not been cleared orapproved by the [place] Food and Drug Administration. This test wasperformed in a CLIA certified laboratory and is intended forclinical purposes.Performed By: [facility] [place], [place] [address]Laboratory Director: Rogelio Miranda MD, PhDCLIA Number: [id number] Performed By: #### A HSVPC ####[facility] [address] [place] [address] lab Director: KAYLYNN Moreno [address] [place] [address] lab Director: Wil Swanson MD Herpes simplex virus PCRon 0 01-22-2024 HSV 1 SUBTYPE BY PCR Not detected TRIP [facility] HSV 2 SUBTYPE BY PCR Not detected TRIP [facility] HSV Source .CSF [facility] MR Brain WO contraston 01-21 [facility] RIS CONSOLIDATED MHPN RIS CONSOLIDATED [facility] Radiology Study observation (narrative) [facility] MRI BRAIN WO CONTRASTon MRI BRAIN WO CONTRAST Normal Sydni [facility] Magnesiumon 01-22-2024 Magnesium [Mass/Vol] 2.2 mg/dL 1.6 - 2 .6 mg/dL [facility] Magnesium [Mass/Vol] 2.2 mg/dL Normal 1.6-2.6 [facility] Comment on above: Performed By: #### M G, BMP, CHELO, CDP ####[facility] [address] [place], [place] [id number] lab Director: Ramiro Mark MD No Panel Informationon 01-21 [facility] POC Glucose Fingerstickon Glucose [Mass/Vol] 164 mg/dL High 75 - 110 mg/dL [facility] Interpretation and review of laboratory results Abnormal [facility] Glucose [Mass/Vol] 293 mg/dL High 75 - 110 mg/dL [facility] Interpretation and review of laboratory results Abnormal [facility] Glucose [Mass/Vol] 172 mg/dL High 75 - 110 mg/dL [facility] Interpretation and review of laboratory results Abnormal [facility] Phosphoruson 01-22-2024 Phosphate [Mass/Vol] 3.2 mg/dL 2.5 - 4 .5 mg/dL [facility] Phosphorus, Inorg.on 024 Phosphorus, Inorg. 3.2 mg/dL Normal 2.5-4.5 [facility] Comment on above: Performed By: #### M G, BMP, CHELO, CDP ####[facility] HospitalLOOKSIMA Bb[address]grvzkkij[address] [place], [place] [id number] lab Director: Ramiro Mark MD Basic Metabolic Panelon Anion gap [Moles/Vol] 13 mmol/L 9 - 16 mmol/L [facility] Calcium [Mass/Vol] 7.9 mg/dL Low 8.6 - 10. 4 mg/dL [facility] Chloride [Moles/Vol] 105 mmol/L 98 - 10 7 mmol/L [facility] CO2 [Moles/Vol] 18 mmol/L Low 20 - 31 mmol/L [facility] Creatinine [Mass/Vol] 1.5 mg/dL High 0.70 - 1.20 mg/dL [facility] GFR/1.73 sq M.predicted MDRD (S/P/Bld) [Vol rate/Area] 58 mL/min/{1.73_m2} Low - PINF [facility] Glucose [Mass/Vol] 287 mg/dL High 74 - 99 mg/dL [facility] Interpretation and review of laboratory results Abnormal [facility] Potassium [Moles/Vol] 4.2 mmol/L 3.7 - 5.3 mmol/L [facility] Sodium [Moles/Vol] 136 mmol/L 136 - 145 mmol/L [facility] Urea nitrogen [Mass/Vol] 29 mg/dL High 6 - 20 mg/dL [facility] Basic Metabolic Profon 01-20 Anion gap [Moles/Vol] 13 mmol/L Normal 9-16 [facility] Comment on above: Performed By: #### M G, CDP, CHELO, BMP ####[facility] HospitalLOOKSIMA [address]uc[address]ksvdlaos[address]8 [place] [address] lab Director: Ramiro Mark MD Calcium [Mass/Vol] 7.9 mg/dL Low 8.6-10.4 [facility] Comment on above: Performed By: #### M G, CDP, CHELO, BMP ####[facility] Slcnzluonbiy6043 [place] [address] Lab Director: Ramiro Mark MD Chloride [Moles/Vol] 105 mmol/L Normal 98-107 [facility] Comment on above: Performed By: #### M G, CDP, CHELO, BMP ####[facility] [address]labq[address] [place] [address] Lab Director: Ramiro Mark MD CO2 [Moles/Vol] 18 mmol/L Low 20-31 [facility] Comment on above: Performed By: #### M G, CDP, CHELO, BMP ####[facility] [address]ms[address]ft[address] [place] [address] Lab Director: Ramiro Mark MD Creatinine [Mass/Vol] 1.5 mg/dL High 0.70-1.20 [facility] Comment on above: Performed By: #### M G, CDP, CHELO, BMP ####[facility] [address]ps[address]fky[address]7 [place] [address] Lab Director: Ramiro Mark MD GFR/1.73 sq M.predicted among non-blacks MDRD (S/P/Bld) [Vol rate/Area] 58 mL/min/{1.73_m2} Low >60 [facility] Comment on above: Result Comment: Thes e results are not intended for use in patients <18 years of age.eGFR results are calculated without a race factor using the 2020 CKD-EPI equation.Careful clinical correlation is recommended, particularly when comparing to results calculated using previous equations.The CKD-EPI equation is less accurate in patients with extremes of muscle mass, extra-renal metabolism of creatine, excessive creatine ingestion, or following therapy that affects renal tubular secretion. Performed By: #### M G, CDP, CHELO, BMP ####[facility] [address]tarvfar[address]70 [place] [address] Lab Director: Ramiro Mark MD Glucose [Mass/Vol] 287 mg/dL High 74-99 [facility] Comment on above: Performed By: #### M G, CDP, CHELO, BMP ####[facility] [address] [place], [place] [id number])[phone] Director: Ramiro Mark MD Potassium [Moles/Vol] 4.2 mmol/L Normal 3.7-5.3 [facility] Comment on above: Performed By: #### M G, CDP, CHELO, BMP ####[facility] [address] [place] [address] Lab Director: Ramiro Mark MD Sodium [Moles/Vol] 136 mmol/L Normal 136-145 [facility] Comment on above: Performed By: #### M G, CDP, CHELO, BMP ####[facility] [address]pbz[address] [place] [address] Lab Director: Ramiro Mark MD Urea nitrogen [Mass/Vol] 29 mg/dL High 6-20 [facility] Comment on above: Performed By: #### M G, CDP, CHELO, BMP ####[facility] [address] [place], [place] [phone] Director: Ramiro Mark MD CBC with Auto Differentialon 01-21-2024 Basophils (Bld) [#/Vol] 0.03 10*3/uL [facility] [facility] Basophils/100 WBC (Bld) 0 % 0 - 2 % [facility] Eosinophils (Bld) [#/Vol] 0.06 10*3/uL [facility] [employer] Eosinophils/100 WBC (Bld) 1 % 1 - 4 % [facility] Erythrocyte distribution width (RBC) [Ratio] 14.2 % 11.8 - 14.4 % [facility] Hematocrit (Bld) [Volume fraction] 31.9 % Low 40.7 - 50.3 % [facility] Hemoglobin (Bld) [Mass/Vol] 10.3 g/dL Low 13.0 - 17.0 g/dL [facility] Immature granulocytes (Bld) [#/Vol] 0.03 10*3/uL [facility] Immature granulocytes/100 WBC (Bld) 0 % 0 [facility] Interpretation and review of laboratory results Abnormal [facility] Lymphocytes/100 WBC (Bld) 14 % Low 24 - 43 % [facility] Lymphocytes/100 WBC (Bld) 1.29 % [facility] MCH (RBC) [Entitic mass] 29.3 pg 25.2 - 33.5 pg [facility] MCHC (RBC) [Mass/Vol] 32.3 g/dL 28.4 - 34.8 g/dL [facility] MCV (RBC) [Entitic vol] 90.6 fL 82.6 - 102.9 fL [facility] Monocytes/100 WBC (Bld) 8 % 3 - 12 % [facility] Monocytes/100 WBC (Bld) 0.70 % [facility] Neutrophils/100 WBC (Bld) 77 % High 36 - 65 % [facility] Nucleated RBC/100 WBC (Bld) [Ratio] 0.0 % 0.0 per 100 WBC [facility] Platelet mean volume (Bld) [Entitic vol] 10.7 fL 8.1 - 13.5 fL [facility] Platelets (Bld) [#/Vol] 162 10*3/uL [facility] RBC (Bld) [#/Vol] 3.52 10*6/uL Low 4.21 - 5.7 7 m/uL [facility] Segmented neutrophils/100 WBC (Bld) 7.13 % [facility] WBC other (Bld) [#/Vol] 9.2 [facility] CBC with Diffon 01-21-2024 Abs. Basophil 0.03 k/uL Normal 0.00-0.20 [facility] Comment on above: Performed By: #### M G, CDP, CHELO, BMP ####[address] [place] [address] Lab Director: Ramiro Mark MD Abs.Imm.Granulocyte 0.03 k/uL Normal 0.00-0.30 [facility] Comment on above: Performed By: #### M G, CDP, CHELO, BMP ####[facility] [address] [place], [place] [phone] Director: Ramiro Mark MD Abs.Neutrophil (Seg) 7.13 k/uL Normal 1.50-8.10 [facility] Comment on above: Performed By: #### M G, CDP, CHELO, BMP ####[facility] [address] [place], [place] [phone] Director: Ramiro Mark MD Basophils/100 WBC (Bld) 0 % Normal 0-2 [facility] Comment on above: Performed By: #### Vanesa Arana, CDP, CHELO, BMP ####[place], [place] [address])[phone] Director: Ramiro Mark MD Eosinophils (Bld) [#/Vol] 0.06 10*3/uL Normal 0.00-0.44 [facility] Comment on above: Performed By: #### M G, CDP, CHELO, BMP ####[facility] [address] [place], [place] [phone] Director: Ramiro Mark MD Eosinophils/100 WBC (Bld) 1 % Normal 1-4 [facility] Comment on above: Performed By: #### M G, CDP, CHELO, BMP ####[facility] [address] [place], [place] [phone] Director: Ramiro Mark MD Erythrocyte distribution width (RBC) [Ratio] 14.2 % Normal 11.8-14.4 [facility] Comment on above: Performed By: #### M G, CDP, CHELO, BMP ####[facility] [address] [place] [address] Lab Director: Ramiro Mark MD Hematocrit (Bld) [Volume fraction] 31.9 % Low 40.7-50.3 [facility] Comment on above: Performed By: #### Vanesa Arana, CDP, CHELO, BMP ####[facility] [address] [place], [place] [phone] Director: Ramiro Mark MD Hemoglobin (Bld) [Mass/Vol] 10.3 g/dL Low 13.0-17.0 [facility] Comment on above: Performed By: #### Vanesa Arana, CDP, CHELO, BMP ####[facility] [address] [place], [place] [phone] Director: Ramiro Mark MD Immature granulocytes/100 WBC (Bld) 0 % Normal 0 [facility] Comment on above: Performed By: #### Vanesa Arana, CDP, CHELO, BMP ####[facility] [address] [place] [address])[phone] Director: Ramiro Mark MD Lymphocytes (Bld) [#/Vol] 1.29 10*3/uL Normal 1.10-3.70 [facility] Comment on above: Performed By: #### Vanesa Arana, CDP, CHELO, BMP ####[facility] [address] [place] [address] [phone] Director: Ramiro Mark MD Lymphocytes/100 WBC (Bld) 14 % Low 24-43 [facility] Comment on above: Performed By: #### Vanesa Arana, CDP, CHELO, BMP ####[facility] [address] [place], [place] [phone] Director: Ramiro Mark MD MCH (RBC) [Entitic mass] 29.3 pg Normal 25.2-33.5 [facility] Comment on above: Performed By: #### Vanesa Arana, CDP, CHELO, BMP ####[facility] [address] [place], [place] [phone] Director: Ramiro Mark MD MCHC (RBC) [Mass/Vol] 32.3 g/dL Normal 28.4-34.8 [facility] Comment on above: Performed By: #### Vanesa Arana, CDP, CHELO, BMP ####[address] [phone] Director: Ramiro Mark MD MCV (RBC) [Entitic vol] 90.6 fL Normal 82.6-102.9 [facility] Comment on above: Performed By: #### M Sumit, CDP, CHELO, BMP ####[address] [phone] Director: Ramiro Mark MD Monocytes (Bld) [#/Vol] 0.70 10*3/uL Normal 0.10-1.20 [facility] Comment on above: Performed By: #### Vanesa Arana, CDP, CHELO, BMP ####[place], [place] [phone])[phone] Director: Ramiro Mark MD Monocytes/100 WBC (Bld) 8 % Normal 3-12 [facility] Comment on above: Performed By: #### Vanesa Arana, CDP, CHELO, BMP ####[address] [phone] Director: Ramiro Mark MD Neutrophil (Seg) 77 % High 36-65 [facility] Comment on above: Performed By: #### Vanesa Arana, CDP, CHELO, BMP ####[facility] [address] [place], [place] [phone] Director: Ramiro Mark MD NRBC Automated 0.0 per 100 WBC Normal 0.0 [facility] Comment on above: Performed By: #### Vanesa Arana, CDP, CHELO, BMP ####[facility] [address] [place], [place] [phone] Director: Ramiro Mark MD Platelet mean volume (Bld) [Entitic vol] 10.7 fL Normal 8.1-13.5 [facility] Comment on above: Performed By: #### M G, CDP, CHELO, BMP ####[facility] [address] [place], [place] [phone] Director: Ramiro Mark MD Platelets (Bld) [#/Vol] 162 10*3/uL Normal 138-453 [facility] Comment on above: Performed By: #### M G, CDP, CHELO, BMP ####[facility] [address] [place], [place] [phone] Director: Ramiro Mark MD RBC (Bld) [#/Vol] 3.52 10*6/uL Low 4.21-5.77 [facility] Comment on above: Performed By: #### M G, CDP, CHELO, BMP ####[facility] [address] [place], [place] [phone] Director: Ramiro Mark MD WBC (Bld) [#/Vol] 9.2 10*3/uL Normal 3.5-11.3 [facility] Comment on above: Performed By: #### M G, CDP, CHELO, BMP ####[facility] [address] [place], [place] [phone] Director: Ramiro Mark MD Cardiac echo study Procedure Ordered By: Christopher Cochran on 01-21-2024 Ao Root Index 1.57 cm/m2 [employer] Phone: Aortic Root 3.3 cm [employer] Phone: AV Area by Peak Velocity 2.4 cm2 [employer] Phone: AV Area by VTI 2.4 cm2 [employer] Phone: AV Mean Gradient 4 mmHg [employer] Phone: AV Mean Velocity 0.9 m/s [employer] Phone: AV Peak Gradient 7 mmHg SHARON WILDER [employer] Work Phone: AV Peak Velocity 1.4 m/s SHARON JOHNSON [employer] Work Phone: AV Velocity Ratio 0.71 SHARON JOSEPH [employer] Work Phone: [phone] AV VTI 27.9 cm SHARON GALLEGO [employer] Work Phone: [phone] EZIO/BSA Peak Velocity 1.1 cm2/m2 SHARON GALLE[employer] Work Phone: [phone] EZIO/BSA VTI 1.1 cm2/m2 SHARON XLerantJAKE [employer] Work Phone: Body surface area Derived from formula 2.13 m2 SHARON [email or web address] Work Phone: E/E' Lateral 12.17 SH[facility]ON [email or web address] Work Phone: E/E' Ratio (Averaged) 10.65 SHARON [employer] Work Phone: Est. RA Pressure 8 mmHg SHARON WILDER [employer] Work Phone: Fractional Shortening 2D 20 % 28 - 44 % SHARON [email or web address] Work Phone: [phone] Interpretation and review of laboratory results Abnormal SH[facility] [email or web address] Work Phone: IVSd 1.5 cm Abnormal 0.6 - 1.0 cm SHARON [email or web address] Work Phone: LA Area 2C 13.9 cm2 SHARON [email or web address] Work Phone: LA Area 4C 16.0 cm2 SHARON [email or web address] Work Phone: LA Diameter 3.5 cm SHARON [email or web address] Work Phone: LA Major Ashuelot 4.6 cm SHARON [email or web address] Work Phone: LA Minor Ashuelot 4.3 cm [employer] Work Phone: LA Size Index 1.67 cm/m2 [employer] Work Phone: LA Volume BP 41 mL 18 - 58 mL [employer] Work Phone: LA Volume Index BP 20 ml/m2 16 - 34 ml/m2 [employer] Work Phone: LA Volume Index MOD A2C 19 ml/m2 16 - 34 ml/m2 [employer] Work Phone: LA Volume Index MOD A4C 20 ml/m2 16 - 34 ml/m2 [employer] Work Phone: LA Volume MOD A2C 39 mL 18 - 58 mL [employer] Work Phone: LA Volume MOD A4C 42 mL 18 - 58 mL [employer] Work Phone: LA/AO Root Ratio 1.06 BON [employer] Work Phone: LV E' Lateral Velocity 6 cm/s [employer] Work Phone: LV E' Septal Velocity 8 cm/s [employer] Work Phone: LV EDV A2C 73 mL [employer] Work Phone: LV EDV A4C 83 mL [employer] Work Phone: LV EDV Index A2C 35 mL/m2 BON [employer] Work Phone: LV EDV Index A4C 40 mL/m2 [employer] Work Phone: LV Ejection Fraction A2C 58 % [employer] Work Phone: LV Ejection Fraction A4C 51 % [employer] Work Phone: LV ESV A2C 31 mL [employer] Work Phone: LV ESV A4C 40 mL BON [email or web address] Work Phone: LV ESV Index A2C 15 mL/m2 [place] [employer] Work Phone: LV ESV Index A4C 19 mL/m2 [place] [employer] Work Phone: LV Mass 2D 220.7 g 88 - 224 g BON [email or web address] Work Phone: LV Mass 2D Index 105.1 g/m2 49 - 115 g/m2 [facility]ON [email or web address] Work Phone: LV RWT Ratio 0.70 [employer] Work Phone: LVIDd 4.0 cm Abnormal 4.2 - 5.9 cm [employer] Work Phone: LVIDd Index 1.90 cm/m2 [employer] Work Phone: LVIDs 3.2 cm BON [email or web address] Work Phone: LVIDs Index 1.52 cm/m2 [employer] Work Phone: LVOT Area 3.5 cm2 [employer] Work Phone: LVOT Diameter 2.1 cm [employer] Work Phone: [phone] LVOT Mean Gradient 2 mmHg BON SE COURS [employer] Work Phone: LVOT Peak Gradient 4 mmHg [employer] [employer] Work Phone: LVOT Peak Velocity 1.0 m/s [employer] [employer] Work Phone: LVOT Stroke Volume Index 32.5 mL/m2 BON [email or web address] Work Phone: [phone] LVOT SV 68.2 ml BON [email or web address] Work Phone: LVOT VTI 19.7 cm BON [email or web address] Work Phone: [phone] LVOT:AV VTI Index 0.71 BON SEC JAKE [employer] Work Phone: LVPWd 1.4 cm Abnormal 0.6 - 1.0 cm SHARON GALLEGO [employer] Work Phone: MV A Velocity 0.69 m/s SHARON GALLEGO [employer] Work Phone: MV Area by VTI 3.0 cm2 SHARON New [employer] Work Phone: MV E Velocity 0.73 m/s SHARON GALLEGO [employer] Work Phone: MV E Wave Deceleration Time 155.0 ms SHARON G[employer] Work Phone: MV E/A 1.06 SHARON GAL[employer]GO [employer] Work Phone: MV Max Velocity 0.9 m/s SHARON VENTURAOU RS [employer] Work Phone: MV Mean Gradient 2 mmHg [place] [employer] Work Phone: [phone] MV Mean Velocity 0.6 m/s SHARON [employer] Work Phone: MV Peak Gradient 3 mmHg SHARON SEC[place] [employer] Work Phone: MV VTI 22.7 cm SHARON GALLEGO [employer] Work Phone: [phone] MV:LVOT VTI Index 1.15 BON SEC OURS [employer] Work Phone: PV Max Velocity 0.9 m/s SHARON SECOU RS [employer] Work Phone: PV Peak Gradient 3 mmHg [place] [employer] Work Phone: RV Basal Dimension 3.8 cm BON SE PÉREZ [employer] Work Phone: RV Free Wall Peak S' 17 cm/s SHARON GALLEGO [employer] Work Phone: RVSP 40 mmHg SHARON [email or web address] Work Phone: TAPSE 3.1 cm 1.7 cm SHARON [email or web address] Work Phone: TR Max Velocity 2.82 m/s SHARON VENTURAOU RS [employer] Work Phone: TR Peak Gradient 32 mmHg SHARON VENTURAO URS [employer] Work Phone: SHARON [email or web address] Work Phone: Cardiac echo study Procedure on 01-21-2024 [facility] Study observation (narrative) SH[facility]ON [email or web address] Glucose,Whole Bloodon 2023 Glucose [Mass/Vol] 195 mg/dL High 75-110 [facility] Glucose [Mass/Vol] 237 mg/dL High -110 [facility] Glucose [Mass/Vol] 205 mg/dL High [facility]110 [facility] Glucose [Mass/Vol] 237 mg/dL High -110 [facility] Glucose [Mass/Vol] 248 mg/dL High -110 [facility] Lyme Disease AB, CSFon 01-20 B. burgdorferi Ab IA Qn (CSF) 0.08 NINF [facility] [email or web address] SH[facility]ON [facility] Lyme Disease Ab,CSFon 2023 B burgdorferi Ab,CSF 0.08 IV Normal <=0.90 [facility] Comment on above: Result Comment: (NOT E)When Borrelia burgdorferi VlsE1/pepC10 assay is negative furthertesting is not recommended and will not be performed.REFERENCE INTERVAL: B. burgdorferi VlsE1/pepC10 Abs, CSF 0.90 IV or less ....... Negative - VlsE1 and pepC10 antibodies to B. burgdorferi not detected. 0.91-1.09 IV .......... Equivocal - Repeat testing in 10-14 days may be helpful. 1.10 IV or greater .... Positive - VlsE1 and pepC10 antibodies to B. burgdorferi detected.The detection of antibodies to Borrelia burgdorferi incerebrospinal fluid may indicate central nervous system infection.However, consideration must be given to possible contamination byblood or transfer of serum antibodies across the blood-brainbarrier. Lyme disease diagnosis in serum is recommended prior toany CSF studies.This test was developed and its performance characteristicsdetermined by [employer]. It has not been cleared orapproved by the [place] Food and Drug Administration. This test wasperformed in a CLIA certified laboratory and is intended forclinical purposes.Performed By: [facility] [place] [id number] Director: Rogelio Miranda MD, PhDCLIA Number: [id number] Performed By: #### C TP, CGLU, MEVP, CFVD, CFCNT ####[address] [place], [place] [id number] Lab Director: Ramiro Mark MD#### AWNCSF, ALYMCT ####[address] [address] lab Director: Wil Swanson MD Magnesiumon 01-21-2024 Magnesium [Mass/Vol] 1.9 mg/dL 1.6 - 2 .6 mg/dL [facility] Magnesium [Mass/Vol] 1.9 mg/dL Normal 1.6-2.6 [facility] Comment on above: Performed By: #### M G, CDP, CHELO, BMP ####[facility] [address] [place] [address] [id number] lab Director: Ramiro Mark MD No Panel Informationon 01-20 [facility] POC Glucose Fingerstickon Glucose [Mass/Vol] 195 mg/dL High 75 - 110 mg/dL [facility] Interpretation and review of laboratory results Abnormal [facility] [employer] Glucose [Mass/Vol] 237 mg/dL High 75 - 110 mg/dL [facility] Interpretation and review of laboratory results Abnormal [facility] Glucose [Mass/Vol] 205 mg/dL High 75 - 110 mg/dL [facility] Interpretation and review of laboratory results Abnormal [facility] [employer] Glucose [Mass/Vol] 237 mg/dL High 75 - 110 mg/dL [facility] Interpretation and review of laboratory results Abnormal [facility] Glucose [Mass/Vol] 248 mg/dL High 75 - 110 mg/dL [facility] Interpretation and review of laboratory results Abnormal [facility] Phosphoruson 01-21-2024 Phosphate [Mass/Vol] 3.9 mg/dL 2.5 - 4 .5 mg/dL [facility] Phosphorus, Inorg.on 024 Phosphorus, Inorg. 3.9 mg/dL Normal 2.5-4.5 [facility] Comment on above: Performed By: #### M G, CDP, CHELO, BMP ####[facility] [address] [place] [address] [facility] Director: Ramiro Mark MD Arterial Bld Gas,POCon 01-19 Jody Test Positive Normal [facility] FIO2 30.0 Normal [facility] HCO3 (Bld) [Moles/Vol] 22.4 mmol/L Normal 21.0-28.0 [facility] Negative Base Excess (calc) 1.3 mmol/L Normal 0.0-2.0 [facility] O2 Device Adult Ventilator Normal [facility] Oxygen saturation in Blood 99.2 % High 94.0-98.0 [facility] pCO2, Arterial 32.5 mm Hg Low 35.0-48.0 [facility] pH, Arterial 7.446 Normal 7.350-7.450 [facility] pO2, Arterial 135.0 mm Hg High 83.0-108.0 [facility] Site Drawn Right Radial Artery Normal [facility] Arterial Blood Gas, POCon Jody Test Positive [facility] FIO2 30.0 [facility] HCO3 (Bld) [Moles/Vol] 22.4 mmol/L 21.0 - 28.0 mmol/L [facility] Negative Base Excess, Art 1.3 mmol/L 0.0 - 2.0 mmol/L [facility] O2 Delivery Device Adult Ventilator [facility] Oxygen saturation in Blood 99.2 % High 94.0 - 98.0 % [facility] POC pCO2 32.5 Low [facility] POC pH 7.446 7.350 - 7.450 [facility] POC PO2 135.0 High [facility] Sample Site Right Radial Artery [facility] Basic Metabolic Panelon Anion gap [Moles/Vol] 12 mmol/L 9 - 16 mmol/L [facility] Calcium [Mass/Vol] 8.0 mg/dL Low 8.6 - 10. 4 mg/dL [facility] Chloride [Moles/Vol] 107 mmol/L 98 - 10 7 mmol/L [facility] CO2 [Moles/Vol] 16 mmol/L Low 20 - 31 mmol/L [facility] Creatinine [Mass/Vol] 1.5 mg/dL High 0.70 - 1.20 mg/dL [facility] GFR/1.73 sq M.predicted MDRD (S/P/Bld) [Vol rate/Area] 55 mL/min/{1.73_m2} Low - PINF [facility] Glucose [Mass/Vol] 211 mg/dL High 74 - 99 mg/dL [facility] Potassium [Moles/Vol] 4.0 mmol/L 3.7 - 5.3 mmol/L [facility] Sodium [Moles/Vol] 135 mmol/L Low 136 - 145 mmol/L [facility] Urea nitrogen [Mass/Vol] 32 mg/dL High 6 - 20 mg/dL [facility] Anion gap [Moles/Vol] 13 mmol/L 9 - 16 mmol/L [facility] Calcium [Mass/Vol] 8.3 mg/dL Low 8.6 - 10. 4 mg/dL [facility] Chloride [Moles/Vol] 106 mmol/L 98 - 10 7 mmol/L [facility] CO2 [Moles/Vol] 18 mmol/L Low 20 - 31 mmol/L [facility] Creatinine [Mass/Vol] 1.6 mg/dL High 0.70 - 1.20 mg/dL [facility] GFR/1.73 sq M.predicted MDRD (S/P/Bld) [Vol rate/Area] 51 mL/min/{1.73_m2} Low - PINF [facility] Glucose [Mass/Vol] 244 mg/dL High 74 - 99 mg/dL [facility] Potassium [Moles/Vol] 4.4 mmol/L 3.7 - 5.3 mmol/L [facility] Sodium [Moles/Vol] 137 mmol/L 136 - 145 mmol/L [facility] Urea nitrogen [Mass/Vol] 33 mg/dL High 6 - 20 mg/dL [facility] Anion gap [Moles/Vol] 10 mmol/L 9 - 16 mmol/L [facility] Calcium [Mass/Vol] 7.6 mg/dL Low 8.6 - 10. 4 mg/dL [facility] Chloride [Moles/Vol] 106 mmol/L 98 - 10 7 mmol/L [facility] CO2 [Moles/Vol] 20 mmol/L 20 - 31 mmol/L [facility] Creatinine [Mass/Vol] 1.6 mg/dL High 0.70 - 1.20 mg/dL [facility] GFR/1.73 sq M.predicted MDRD (S/P/Bld) [Vol rate/Area] 51 mL/min/{1.73_m2} Low - PINF [facility] Glucose [Mass/Vol] 186 mg/dL High 74 - 99 mg/dL [facility] Interpretation and review of laboratory results Abnormal [facility] Potassium [Moles/Vol] 4.0 mmol/L 3.7 - 5.3 mmol/L [facility] Sodium [Moles/Vol] 136 mmol/L 136 - 145 mmol/L [facility] Urea nitrogen [Mass/Vol] 39 mg/dL High 6 - 20 mg/dL [facility] Anion gap [Moles/Vol] 9 mmol/L 9 - 16 mmol/L [facility] Calcium [Mass/Vol] 7.9 mg/dL Low 8.6 - 10. 4 mg/dL [facility] Chloride [Moles/Vol] 105 mmol/L 98 - 10 7 mmol/L [facility] CO2 [Moles/Vol] 21 mmol/L 20 - 31 mmol/L [facility] Creatinine [Mass/Vol] 1.6 mg/dL High 0.70 - 1.20 mg/dL [facility] GFR/1.73 sq M.predicted MDRD (S/P/Bld) [Vol rate/Area] 51 mL/min/{1.73_m2} Low - PINF [facility] Glucose [Mass/Vol] 180 mg/dL High 74 - 99 mg/dL [facility] Interpretation and review of laboratory results Abnormal [facility] Potassium [Moles/Vol] 4.3 mmol/L 3.7 - 5.3 mmol/L [facility] Sodium [Moles/Vol] 135 mmol/L Low 136 - 145 mmol/L [facility] Urea nitrogen [Mass/Vol] 41 mg/dL High 6 - 20 mg/dL [facility] Anion gap [Moles/Vol] 10 mmol/L 9 - 16 mmol/L [facility] Calcium [Mass/Vol] 8.1 mg/dL Low 8.6 - 10. 4 mg/dL [facility] Chloride [Moles/Vol] 106 mmol/L 98 - 10 7 mmol/L [facility] CO2 [Moles/Vol] 21 mmol/L 20 - 31 mmol/L [facility] Creatinine [Mass/Vol] 1.6 mg/dL High 0.70 - 1.20 mg/dL [facility] GFR/1.73 sq M.predicted MDRD (S/P/Bld) [Vol rate/Area] 51 mL/min/{1.73_m2} Low - PINF [facility] Glucose [Mass/Vol] 135 mg/dL High 74 - 99 mg/dL [facility] Interpretation and review of laboratory results Abnormal [facility] Potassium [Moles/Vol] 4.0 mmol/L 3.7 - 5.3 mmol/L [facility] Sodium [Moles/Vol] 137 mmol/L 136 - 145 mmol/L [facility] Urea nitrogen [Mass/Vol] 40 mg/dL High 6 - 20 mg/dL [facility] Basic Metabolic Profon 01-19 Anion gap [Moles/Vol] 12 mmol/L Normal 9-16 [facility] Comment on above: Performed By: #### B MP, MG, CHELO ####[facility] [address] [place], [place] [address])[phone] Director: Ramiro Mark MD Calcium [Mass/Vol] 8.0 mg/dL Low 8.6-10.4 [facility] Comment on above: Performed By: #### B MP, MG, CHELO ####[facility] [address] [place], [place] [address])[phone] Director: Ramiro Mark MD Chloride [Moles/Vol] 107 mmol/L Normal 98-107 [facility] Comment on above: Performed By: #### B MP, MG, CHELO ####[facility] [address] [place] [address] Lab Director: Ramiro Mark MD CO2 [Moles/Vol] 16 mmol/L Low 20-31 [facility] Comment on above: Performed By: #### B MP, MG, CHELO ####[facility] [address] [place] [address] Lab Director: Ramiro Mark MD Creatinine [Mass/Vol] 1.5 mg/dL High 0.70-1.20 [facility] Comment on above: Performed By: #### B MP, MG, CHELO ####[facility] [address] [place] [address] Lab Director: Ramiro Mark MD GFR/1.73 sq M.predicted among non-blacks MDRD (S/P/Bld) [Vol rate/Area] 55 mL/min/{1.73_m2} Low >60 [facility] Comment on above: Result Comment: Thes e results are not intended for use in patients <18 years of age.eGFR results are calculated without a race factor using the 2020 CKD-EPI equation.Careful clinical correlation is recommended, particularly when comparing to results calculated using previous equations.The CKD-EPI equation is less accurate in patients with extremes of muscle mass, extra-renal metabolism of creatine, excessive creatine ingestion, or following therapy that affects renal tubular secretion. Performed By: #### B MP, MG, CHELO ####[facility] [id number] [place], [place] [address])[phone] Director: Ramiro Mark MD Glucose [Mass/Vol] 211 mg/dL High 74-99 [facility] Comment on above: Performed By: #### B MP, MG, CHELO ####[facility] [address] [place], [place] [address])[phone] Director: Ramiro Mark MD Potassium [Moles/Vol] 4.0 mmol/L Normal 3.7-5.3 [facility] Comment on above: Performed By: #### B MP, MG, CHELO ####[facility] [address] [place] [address])[phone] Director: Ramiro Mark MD Sodium [Moles/Vol] 135 mmol/L Low 136-145 [facility] Comment on above: Performed By: #### B MP, MG, CHELO ####[facility] Uxvgxrjamlac90[address] [place], [place] [address])[phone] Director: Ramiro Mark MD Urea nitrogen [Mass/Vol] 32 mg/dL High 6-20 [facility] Comment on above: Performed By: #### B MP, MG, CHELO ####[facility] Xpqeqttjamav9258 [place], [place] [address])[phone] Director: Ramiro Mark MD Anion gap [Moles/Vol] 13 mmol/L Normal 9-16 [facility] Comment on above: Performed By: #### P HO, BMP, MG ####[facility] Bhzktwsonldt2980 [place] [address] Lab Director: Ramiro Mark MD Calcium [Mass/Vol] 8.3 mg/dL Low 8.6-10.4 [facility] Comment on above: Performed By: #### P HO, BMP, MG ####[facility] Zojkmahdtpva0857 [place], [place] [id number])[phone] Director: Ramiro Mark MD Chloride [Moles/Vol] 106 mmol/L Normal 98-107 [facility] Comment on above: Performed By: #### P HO, BMP, MG ####[facility] Pdpkcxutipgd8209 [place], [place] [address])[phone] Director: Ramiro Mark MD CO2 [Moles/Vol] 18 mmol/L Low 20-31 [facility] Comment on above: Performed By: #### P HO, BMP, MG ####[facility] [address] [place] [address] [id number])[phone] Director: Ramiro Mark MD Creatinine [Mass/Vol] 1.6 mg/dL High 0.70-1.20 [facility] Comment on above: Performed By: #### P HO, BMP, MG ####[facility] [address] [place] [address] [id number])[phone] Director: Ramiro Mark MD GFR/1.73 sq M.predicted among non-blacks MDRD (S/P/Bld) [Vol rate/Area] 51 mL/min/{1.73_m2} Low >60 [facility] Comment on above: Result Comment: Thes e results are not intended for use in patients <18 years of age.eGFR results are calculated without a race factor using the 2020 CKD-EPI equation.Careful clinical correlation is recommended, particularly when comparing to results calculated using previous equations.The CKD-EPI equation is less accurate in patients with extremes of muscle mass, extra-renal metabolism of creatine, excessive creatine ingestion, or following therapy that affects renal tubular secretion. Performed By: #### P HO, BMP, MG ####[facility] [address]udgqg46[address] [place] [address] Lab Director: Ramiro Mark MD Glucose [Mass/Vol] 244 mg/dL High 74-99 [facility] Comment on above: Performed By: #### P HO, BMP, MG ####[facility] Jmxzginszxhh7584 [place] [address] Lab Director: Ramiro Mark MD Potassium [Moles/Vol] 4.4 mmol/L Normal 3.7-5.3 [facility] Comment on above: Performed By: #### P HO, BMP, MG ####[facility] Whyrrueepocy6683 [place], [place] [id number])[phone] Director: Ramiro Mark MD Sodium [Moles/Vol] 137 mmol/L Normal 136-145 [facility] Comment on above: Performed By: #### P HO, BMP, MG ####[facility] Rzsjrenfgrfr0233 [place], [place] [id number])[phone] Director: Ramiro Mark MD Urea nitrogen [Mass/Vol] 33 mg/dL High 6-20 [facility] Comment on above: Performed By: #### P HO, BMP, MG ####[facility] Sdaljwyvjhvi7797 [place], [place] [id number])[phone] Director: Ramiro Mark MD Anion gap [Moles/Vol] 10 mmol/L Normal 9-16 [facility] Comment on above: Performed By: #### B MP, MG, CHELO, LACTIC ####[facility] Ihnuvswgblnc7318 [place] [address] Lab Director: Ramiro Mark MD Calcium [Mass/Vol] 7.6 mg/dL Low 8.6-10.4 [facility] Comment on above: Performed By: #### B MP, MG, CHELO, LACTIC ####[facility] Zywsenrxaxky4635 [place], [place] [id number])[phone] Director: Ramiro Mark MD Chloride [Moles/Vol] 106 mmol/L Normal 98-107 [facility] Comment on above: Performed By: #### B MP, MG, CHELO, LACTIC ####[facility] Kdtsbgpktwtq9861 [place] [address] Lab Director: Ramiro Mark MD CO2 [Moles/Vol] 20 mmol/L Normal 20-31 [facility] Comment on above: Performed By: #### B MP, MG, CHELO, LACTIC ####[facility] Qepyyvskbait9117 [place], [place] [id number])[phone] Director: Ramiro Mark MD Creatinine [Mass/Vol] 1.6 mg/dL High 0.70-1.20 [facility] Comment on above: Performed By: #### B MP, MG, CHELO, LACTIC ####[address] [id number])[phone] Director: Ramiro Mark MD GFR/1.73 sq M.predicted among non-blacks MDRD (S/P/Bld) [Vol rate/Area] 51 mL/min/{1.73_m2} Low >60 [facility] Comment on above: Result Comment: Thes e results are not intended for use in patients <18 years of age.eGFR results are calculated without a race factor using the 2020 CKD-EPI equation.Careful clinical correlation is recommended, particularly when comparing to results calculated using previous equations.The CKD-EPI equation is less accurate in patients with extremes of muscle mass, extra-renal metabolism of creatine, excessive creatine ingestion, or following therapy that affects renal tubular secretion. Performed By: #### B MP, MG, CHELO, LACTIC ####[facility] Fwhlmhrgsayt4192 [place], [place] [id number])[phone] Director: Ramiro Mark MD Glucose [Mass/Vol] 186 mg/dL High 74-99 [facility] Comment on above: Performed By: #### B MP, MG, CHELO, LACTIC ####[facility] Meaaxghfojwf3212 [place], [place] [address])[phone] Director: Ramiro Mark MD Potassium [Moles/Vol] 4.0 mmol/L Normal 3.7-5.3 [facility] Comment on above: Performed By: #### B MP, MG, CHELO, LACTIC ####[facility] Dnqgllajlnda5817 [place] [address] Lab Director: Ramiro Mark MD Sodium [Moles/Vol] 136 mmol/L Normal 136-145 [facility] Comment on above: Performed By: #### B MP, MG, CHELO, LACTIC ####[facility] Hgchfdzyipna6[address] [place], [place] [address])[phone] Director: Ramiro Mark MD Urea nitrogen [Mass/Vol] 39 mg/dL High 6-20 [facility] Comment on above: Performed By: #### B MP, MG, CHELO, LACTIC ####[facility] Timystnsgric[address]9 [place], [place] [address])[phone] Director: Ramiro Mark MD Anion gap [Moles/Vol] 9 mmol/L Normal 9-16 [facility] Comment on above: Performed By: #### M G, CDP, VNCR, CHELO, BMP, TRIG ####[facility] Adburzexsqiu6391 [place], [place] [address])[phone] Director: Ramiro Mark MD Calcium [Mass/Vol] 7.9 mg/dL Low 8.6-10.4 [facility] Comment on above: Performed By: #### M G, CDP, VNCR, CHELO, BMP, TRIG ####[facility] [address]gwm[address]odutw6[address] [place], [place] [address])[phone] Director: Ramiro Mark MD Chloride [Moles/Vol] 105 mmol/L Normal 98-107 [facility] Comment on above: Performed By: #### M G, CDP, VNCR, CHELO, BMP, TRIG ####[facility] Klifoxhhyjlm3909 [place] [address] Lab Director: Ramiro Mark MD CO2 [Moles/Vol] 21 mmol/L Normal 20-31 [facility] Comment on above: Performed By: #### M G, CDP, VNCR, CHELO, BMP, TRIG ####[facility] Bticryvtybst5013 [place] [address] Lab Director: Ramiro Mark MD Creatinine [Mass/Vol] 1.6 mg/dL High 0.70-1.20 [facility] Comment on above: Performed By: #### M G, CDP, VNCR, CHELO, BMP, TRIG ####[address] [address])[phone] Director: Ramiro Mark MD GFR/1.73 sq M.predicted among non-blacks MDRD (S/P/Bld) [Vol rate/Area] 51 mL/min/{1.73_m2} Low >60 [facility] Comment on above: Result Comment: Thes e results are not intended for use in patients <18 years of age.eGFR results are calculated without a race factor using the 2020 CKD-EPI equation.Careful clinical correlation is recommended, particularly when comparing to results calculated using previous equations.The CKD-EPI equation is less accurate in patients with extremes of muscle mass, extra-renal metabolism of creatine, excessive creatine ingestion, or following therapy that affects renal tubular secretion. Performed By: #### M G, CDP, VNCR, CHELO, BMP, TRIG ####[facility] Ovmwlerrmzjv[address] [place], [place] [address])[phone] Director: Ramiro Mark MD Glucose [Mass/Vol] 180 mg/dL High 74-99 [facility] Comment on above: Performed By: #### M G, CDP, VNCR, CHELO, BMP, TRIG ####[facility] Uyzckqgphxbp4851 [place], [place] [id number])[phone] Director: Ramiro Mark MD Potassium [Moles/Vol] 4.3 mmol/L Normal 3.7-5.3 [facility] Comment on above: Performed By: #### M G, CDP, VNCR, CHELO, BMP, TRIG ####[facility] Spqxbvnaknoc4966 [place], [place] [address])[phone] Director: Ramiro Mark MD Sodium [Moles/Vol] 135 mmol/L Low 136-145 [facility] Comment on above: Performed By: #### M G, CDP, VNCR, CHELO, BMP, TRIG ####[facility] Hitogxoiyusd9496 [place], [place] [address])[phone] Director: Ramiro Mark MD Urea nitrogen [Mass/Vol] 41 mg/dL High 6-20 [facility] Comment on above: Performed By: #### M G, CDP, VNCR, CHELO, BMP, TRIG ####[facility] Lvhbtfpafmmu5915 [place], [place] [address])[phone] Director: Ramiro Mark MD Anion gap [Moles/Vol] 10 mmol/L Normal 9-16 [facility] Comment on above: Performed By: #### B MP, MG, LACTIC, CHELO ####[facility] Ihjkrlbtmypx1673 [place], [place] [address])[phone] Director: Ramiro Mark MD Calcium [Mass/Vol] 8.1 mg/dL Low 8.6-10.4 [facility] Comment on above: Performed By: #### B MP, MG, LACTIC, CHELO ####[facility] Zoktavghetrb8084 [place] [address] Lab Director: Ramiro Mark MD Chloride [Moles/Vol] 106 mmol/L Normal 98-107 [facility] Comment on above: Performed By: #### B MP, MG, LACTIC, CHELO ####[facility] Dujasztioyzk9258 [place], [place] [address])[phone] Director: Ramiro Mark MD CO2 [Moles/Vol] 21 mmol/L Normal 20-31 [facility] Comment on above: Performed By: #### B MP, MG, LACTIC, CHELO ####[facility] Lboclmyszemc2462 [place] [address] Lab Director: Ramiro Mark MD Creatinine [Mass/Vol] 1.6 mg/dL High 0.70-1.20 [facility] Comment on above: Performed By: #### B MP, MG, LACTIC, CHELO ####[facility] [address] [place] [address] Lab Director: Ramiro Mark MD GFR/1.73 sq M.predicted among non-blacks MDRD (S/P/Bld) [Vol rate/Area] 51 mL/min/{1.73_m2} Low >60 [facility] Comment on above: Result Comment: Thes e results are not intended for use in patients <18 years of age.eGFR results are calculated without a race factor using the 2020 CKD-EPI equation.Careful clinical correlation is recommended, particularly when comparing to results calculated using previous equations.The CKD-EPI equation is less accurate in patients with extremes of muscle mass, extra-renal metabolism of creatine, excessive creatine ingestion, or following therapy that affects renal tubular secretion. Performed By: #### B MP, MG, LACTIC, CHELO ####[facility] Yycwxtkzzcpb6410 [place] [address] Lab Director: Ramiro Mark MD Glucose [Mass/Vol] 135 mg/dL High 74-99 [facility] Comment on above: Performed By: #### B MP, MG, LACTIC, CHELO ####[facility] Iauhotycycxk1639 [place] [address] Lab Director: Ramiro Mark MD Potassium [Moles/Vol] 4.0 mmol/L Normal 3.7-5.3 [facility] Comment on above: Performed By: #### B MP, MG, LACTIC, CHELO ####[facility] Efatdfexavtg0121 [place] [address] Lab Director: Ramiro Mark MD Sodium [Moles/Vol] 137 mmol/L Normal 136-145 [facility] Comment on above: Performed By: #### B MP, MG, LACTIC, CHELO ####[facility] Jmorapofaykv8564 [place], [place] [phone] lab Director: Ramiro Mark MD Urea nitrogen [Mass/Vol] 40 mg/dL High 6-20 [facility] Comment on above: Performed By: #### B MP, MG, LACTIC, CHELO ####[facility] Ceaxdaohqttc3318 [place], [place] [id number] lab Director: Ramiro Mark MD CBC with Auto Differentialon 01-20-2024 Basophils (Bld) [#/Vol] 0.04 10*3/uL [facility] Erythrocyte distribution width (RBC) [Ratio] 14.2 % 11.8 - 14.4 % [facility] Hematocrit (Bld) [Volume fraction] 30.7 % Low 40.7 - 50.3 % [facility] Hemoglobin (Bld) [Mass/Vol] 10.1 g/dL Low 13.0 - 17.0 g/dL [facility] Immature granulocytes (Bld) [#/Vol] 0.06 10*3/uL [facility] Interpretation and review of laboratory results Abnormal [facility] Lymphocytes/100 WBC (Bld) 1.10 % [facility] MCH (RBC) [Entitic mass] 29.4 pg 25.2 - 33.5 pg [facility] MCHC (RBC) [Mass/Vol] 32.9 g/dL 28.4 - 34.8 g/dL [facility] MCV (RBC) [Entitic vol] 89.2 fL 82.6 - 102.9 fL [facility] Monocytes/100 WBC (Bld) 0.71 % [facility] Neutrophils/100 WBC (Bld) 82 % High 36 - 65 % [facility] Nucleated RBC/100 WBC (Bld) [Ratio] 0.0 % 0.0 per 100 WBC [facility] Platelet mean volume (Bld) [Entitic vol] 10.3 fL 8.1 - 13.5 fL [facility] Platelets (Bld) [#/Vol] 158 10*3/uL [facility] RBC (Bld) [#/Vol] 3.44 10*6/uL Low 4.21 - 5.7 7 m/uL [facility] Segmented neutrophils/100 WBC (Bld) 9.08 % High [facility] WBC other (Bld) [#/Vol] 11.1 [facility] CBC with Diffon 01-20-2024 Basophils/100 WBC (Bld) 0 % Normal 0-2 [facility] Comment on above: Performed By: #### M G, CDP, VNCR, CHELO, BMP, TRIG ####[employer] [address] [place], [place] [address])[phone] Director: Ramiro Mark MD Eosinophils (Bld) [#/Vol] 0.10 10*3/uL Normal 0.00-0.44 [facility] Comment on above: Performed By: #### M G, CDP, VNCR, CHELO, BMP, TRIG ####[employer] [address] [place], [place] [address])[phone] Director: Ramiro Mark MD Eosinophils/100 WBC (Bld) 1 % Normal 1-4 [facility] Comment on above: Performed By: #### M G, CDP, VNCR, CHELO, BMP, TRIG ####[employer] [address] [place], [place] [address])[phone] Director: Ramiro Mark MD Immature granulocytes/100 WBC (Bld) 1 % High 0 [facility] Comment on above: Performed By: #### M G, CDP, VNCR, CHELO, BMP, TRIG ####[facility] [address]jdlfsfkwftu5[address] [place], [place] [address])[phone] Director: Ramiro Mark MD Lymphocytes/100 WBC (Bld) 10 % Low 24-43 [facility] Comment on above: Performed By: #### M G, CDP, VNCR, CHELO, BMP, TRIG ####[facility] [address] [address])[phone] Director: Ramiro Mark MD Monocytes/100 WBC (Bld) 6 % Normal 3-12 [facility] Comment on above: Performed By: #### M G, CDP, VNCR, CHELO, BMP, TRIG ####[address] [address])[phone] Director: Ramiro Mark MD Abs. Basophil 0.04 k/uL Normal 0.00-0.20 [facility] Comment on above: Performed By: #### M G, CDP, VNCR, CHELO, BMP, TRIG ####[place], [place] [address])[phone] Director: Ramiro Mark MD Abs.Imm.Granulocyte 0.06 k/uL Normal 0.00-0.30 [facility] Comment on above: Performed By: #### M G, CDP, VNCR, CHELO, BMP, TRIG ####[address] [address])[phone] Director: Ramiro Mark MD Abs.Neutrophil (Seg) 9.08 k/uL High 1.50-8.10 [facility] Comment on above: Performed By: #### M G, CDP, VNCR, CHELO, BMP, TRIG ####[place], [place] [address])[phone] Director: Ramiro Mark MD Lymphocytes (Bld) [#/Vol] 1.10 10*3/uL Normal 1.10-3.70 [facility] Comment on above: Performed By: #### M G, CDP, VNCR, CHELO, BMP, TRIG ####[address] [address])[phone] Director: Ramiro Mark MD Monocytes (Bld) [#/Vol] 0.71 10*3/uL Normal 0.10-1.20 [facility] Comment on above: Performed By: #### M G, CDP, VNCR, CHELO, BMP, TRIG ####[facility] Fcooktjmthss7573 [place], [place] [phone])[phone] Director: Ramiro Mark MD Neutrophil (Seg) 82 % High 36-65 [facility] Comment on above: Performed By: #### M G, CDP, VNCR, CHELO, BMP, TRIG ####[facility] Wnekum[address]wnzud5341 [place], [place] [id number])[phone] Director: Ramiro Mark MD Erythrocyte distribution width (RBC) [Ratio] 14.2 % Normal 11.8-14.4 [facility] Comment on above: Performed By: #### M G, CDP, VNCR, CHELO, BMP, TRIG ####[facility] Lurtt[address]vye[address]01 [place], [place] [id number])[phone] Director: Ramiro Mark MD Hematocrit (Bld) [Volume fraction] 30.7 % Low 40.7-50.3 [facility] Comment on above: Performed By: #### M G, CDP, VNCR, CHELO, BMP, TRIG ####[facility] [address] [place] [address])[phone] Director: Ramiro Mark MD Hemoglobin (Bld) [Mass/Vol] 10.1 g/dL Low 13.0-17.0 [facility] Comment on above: Performed By: #### M G, CDP, VNCR, CHELO, BMP, TRIG ####[facility] Ocgckhnxwqpe2116 [place], [place] [id number])[phone] Director: Ramiro Mark MD MCH (RBC) [Entitic mass] 29.4 pg Normal 25.2-33.5 [facility] Comment on above: Performed By: #### M G, CDP, VNCR, CHELO, BMP, TRIG ####[facility] Wnbfeesjvzfu5161 [place], [place] [id number])[phone] Director: Ramiro Mark MD MCHC (RBC) [Mass/Vol] 32.9 g/dL Normal 28.4-34.8 [facility] Comment on above: Performed By: #### M G, CDP, VNCR, CHELO, BMP, TRIG ####[address] [address] Lab Director: Ramiro Mark MD MCV (RBC) [Entitic vol] 89.2 fL Normal 82.6-102.9 [facility] Comment on above: Performed By: #### M G, CDP, VNCR, CHELO, BMP, TRIG ####[facility] [address] [place] [address] [id number])[phone] Director: Ramiro Mark MD NRBC Automated 0.0 per 100 WBC Normal 0.0 [facility] Comment on above: Performed By: #### M G, CDP, VNCR, CHELO, BMP, TRIG ####[address] [address])[phone] Director: Ramiro Mark MD Platelet mean volume (Bld) [Entitic vol] 10.3 fL Normal 8.1-13.5 [facility] Comment on above: Performed By: #### M G, CDP, VNCR, CHELO, BMP, TRIG ####[address] [address] Lab Director: Ramiro Mark MD Platelets (Bld) [#/Vol] 158 10*3/uL Normal 138-453 [facility] Comment on above: Performed By: #### M G, CDP, VNCR, CHELO, BMP, TRIG ####[facility] [address] [place] [address] Lab Director: Ramiro Mark MD RBC (Bld) [#/Vol] 3.44 10*6/uL Low 4.21-5.77 [facility] Comment on above: Performed By: #### M G, CDP, VNCR, CHELO, BMP, TRIG ####[place] [address] [place] [address] lab Director: Ramiro Mark MD WBC (Bld) [#/Vol] 11.1 10*3/uL Normal 3.5-11.3 [facility] Comment on above: Performed By: #### M G, CDP, VNCR, CHELO, BMP, TRIG ####[facility] Lnxvhfidnikt8900 [place] [address] lab Director: Ramiro Mark MD Cult,Urineon 01-20-2024 Cult,Urine Specimen Description .URINE,STRAIGHT CATHETER Culture NO GROWTH Report Status FINAL 01/20/2024 [facility] Comment on above: Performed By: #### U RC ####[facility] [address] [place] [address] lab Director: Ramiro Mark MD Culture, Urineon 01-20-2024 Microorganism identified Cx Nom (Unsp spec) NO GROWTH [facility] [employer] [facility] Specimen Description .URINE,STRAIGHT CATHETER [facility] Cytology, Non-Gynon 01-20-20 [facility] Extubationon 01-20-2024 [facility] [email or web address] ExtubationOrdered By: Linda Lopez on 01-20-2024 [facility] Glucose (POC)on 01-20-2024 Glucose [Mass/Vol] 185 mg/dL High 74-100 [facility] Glucose,Whole Bloodon 2023 Glucose [Mass/Vol] 206 mg/dL High 75-110 [facility] Glucose [Mass/Vol] 236 mg/dL High 75-110 [facility] Glucose [Mass/Vol] 228 mg/dL High 75-110 [facility] Glucose [Mass/Vol] 147 mg/dL High 75-110 [facility] Glucose [Mass/Vol] 133 mg/dL High 75-110 [facility] Glucose [Mass/Vol] 179 mg/dL High 75-110 [facility] Glucose [Mass/Vol] 205 mg/dL High 75-110 [facility] Glucose [Mass/Vol] 177 mg/dL High 75-110 [facility] Glucose [Mass/Vol] 167 mg/dL High 75-110 [facility] Glucose [Mass/Vol] 187 mg/dL High 75-110 [facility] Glucose [Mass/Vol] 187 mg/dL High 75-110 [facility] Glucose [Mass/Vol] 172 mg/dL High 75-110 [facility] Glucose [Mass/Vol] 156 mg/dL High 75-110 [facility] Glucose [Mass/Vol] 122 mg/dL High 75-110 [facility] Glucose [Mass/Vol] 96 mg/dL Normal -110 [facility] Guidance for puncture of Lum bar spineon 01-20-2024 MHPN RIS CONSOLIDATED PN RIS CONSOLIDATED [facility] Guidance for puncture of Lum bar spineOrdered By: Felix Dai on 01-20-2024 [facility] Work Phone: IR LUMBAR PUNCTURE FOR DIAGN OSISon 01-20-2024 IR LUMBAR PUNCTURE FOR DIAGNOSIS [facility] Lactic Acidon 01-20-2024 Lactic Acid, Whole Blood 1.7 mmol/L 0.7 - 2.1 mmol/L [facility] Lactic Acid,Whole Bl 1.7 mmol/L Normal 0.7-2.1 [facility] Comment on above: Performed By: #### L ACTIC ####[employer] [address]fef[address] [place] [address] lab Director: Ramiro Mark MD Lactic Acid, Whole Blood 1.3 mmol/L 0.7 - 2.1 mmol/L [facility] Lactic Acid,Whole Bl 1.3 mmol/L Normal 0.7-2.1 [facility] Comment on above: Performed By: #### B MP, MG, CHELO, LACTIC ####[employer] Rks[address]cyfd2594 [place], [place] [id number] lab Director: Raimro Mark MD Lactic Acid, Whole Blood 1.2 mmol/L 0.7 - 2.1 mmol/L [facility] Lactic Acid,Whole Bl 1.2 mmol/L Normal 0.7-2.1 [facility] Comment on above: Performed By: #### B MP, MG, LACTIC, CHELO ####[facility] [address]67[address] [place], [place] [id number] lab Director: Ramiro Mark MD Magnesiumon 01-20-2024 Magnesium [Mass/Vol] 1.8 mg/dL 1.6 - 2 .6 mg/dL [facility] Magnesium [Mass/Vol] 1.8 mg/dL Normal 1.6-2.6 [facility] Comment on above: Performed By: #### B MP, MG, CHELO ####[facility] [address] [place] [id number] lab Director: Ramiro Mark MD Magnesium [Mass/Vol] 1.9 mg/dL 1.6 - 2 .6 mg/dL [facility] Magnesium [Mass/Vol] 1.9 mg/dL Normal 1.6-2.6 [facility] Comment on above: Performed By: #### P HO, BMP, MG ####[facility] Ndvckrodfsid7426 [place], [place] 4875108 lab Director: Ramiro Mark MD Magnesium [Mass/Vol] 1.9 mg/dL 1.6 - 2 .6 mg/dL [facility] Magnesium [Mass/Vol] 1.9 mg/dL Normal 1.6-2.6 [facility] Comment on above: Performed By: #### B MP, MG, CHELO, LACTIC ####[facility] [address]rpbengnfjmg0782 [place], [place] [id number] lab Director: Ramiro Mark MD Magnesium [Mass/Vol] 2.0 mg/dL 1.6 - 2 .6 mg/dL [facility] Magnesium [Mass/Vol] 2.0 mg/dL Normal 1.6-2.6 [facility] Comment on above: Performed By: #### M G, CDP, VNCR, CHELO, BMP, TRIG ####[facility] [address]wd40[address] [place], [place] [id number] lab Director: Ramiro Mark MD Magnesium [Mass/Vol] 2.0 mg/dL 1.6 - 2 .6 mg/dL [facility] Magnesium [Mass/Vol] 2.0 mg/dL Normal 1.6-2.6 [facility] Comment on above: Performed By: #### B MP, MG, LACTIC, CHELO ####[facility] [id number] [place] [id number] lab Director: Ramiro Mark MD No Panel Informationon 01-19 Interpretation and review of laboratory results Abnormal [facility] Interpretation and review of laboratory results Abnormal [facility] [facility] Interpretation and review of laboratory results Abnormal [facility] Non-Grommet Man Cytologyon 4 Case No: [id number] [facility] Comment on above: Performed By: #### N STRAIGHT CUTTER ####[facility] [address] [place] [phone] lab Director: Ramiro Mark MD POC Glucose Fingerstickon Glucose [Mass/Vol] 206 mg/dL High 75 - 110 mg/dL [facility] Interpretation and review of laboratory results Abnormal [facility] Glucose [Mass/Vol] 236 mg/dL High 75 - 110 mg/dL [facility] Interpretation and review of laboratory results Abnormal [facility] Glucose [Mass/Vol] 228 mg/dL High 75 - 110 mg/dL [facility] Interpretation and review of laboratory results Abnormal [facility] Glucose [Mass/Vol] 147 mg/dL High 75 - 110 mg/dL [facility] Interpretation and review of laboratory results Abnormal [facility] Glucose [Mass/Vol] 133 mg/dL High 75 - 110 mg/dL [facility] Interpretation and review of laboratory results Abnormal [facility] Glucose [Mass/Vol] 179 mg/dL High 75 - 110 mg/dL [facility] Interpretation and review of laboratory results Abnormal [facility] Glucose [Mass/Vol] 205 mg/dL High 75 - 110 mg/dL [facility] Interpretation and review of laboratory results Abnormal [facility] Glucose [Mass/Vol] 177 mg/dL High 75 - 110 mg/dL [facility] Interpretation and review of laboratory results Abnormal [facility] Glucose [Mass/Vol] 167 mg/dL High 75 - 110 mg/dL [facility] Interpretation and review of laboratory results Abnormal [facility] Glucose [Mass/Vol] 187 mg/dL High 75 - 110 mg/dL [facility] Interpretation and review of laboratory results Abnormal [facility] Glucose [Mass/Vol] 187 mg/dL High 75 - 110 mg/dL [facility] Interpretation and review of laboratory results Abnormal [facility] Glucose [Mass/Vol] 172 mg/dL High 75 - 110 mg/dL [facility] Interpretation and review of laboratory results Abnormal [facility] Glucose [Mass/Vol] 156 mg/dL High 75 - 110 mg/dL [facility] Interpretation and review of laboratory results Abnormal [facility] Glucose [Mass/Vol] 122 mg/dL High 75 - 110 mg/dL [facility] Interpretation and review of laboratory results Abnormal [facility] Glucose [Mass/Vol] 96 mg/dL 75 - 110 mg/dL [facility] POCT Glucoseon 01-20-2024 Glucose [Mass/Vol] 185 mg/dL High 74 - 100 mg/dL [facility] Phosphoruson 01-20-2024 Phosphate [Mass/Vol] 1.9 mg/dL Low 2.5 - 4 .5 mg/dL [facility] Phosphate [Mass/Vol] 2.4 mg/dL Low 2.5 - 4 .5 mg/dL [facility] Phosphate [Mass/Vol] 3.3 mg/dL 2.5 - 4 .5 mg/dL [facility] Phosphate [Mass/Vol] 3.9 mg/dL 2.5 - 4 .5 mg/dL [facility] Phosphate [Mass/Vol] 3.9 mg/dL 2.5 - 4 .5 mg/dL [facility] Phosphorus, Inorg.on 024 Phosphorus, Inorg. 1.9 mg/dL Low 2.5-4.5 [facility] Comment on above: Performed By: #### B MP, MG, CHELO ####[facility] [address] [place] [address] Lab Director: Ramiro Mark MD Phosphorus, Inorg. 2.4 mg/dL Low 2.5-4.5 [facility] Comment on above: Performed By: #### P HO, BMP, MG ####[facility] [address] [place] [address] Lab Director: Ramiro Mark MD Phosphorus, Inorg. 3.3 mg/dL Normal 2.5-4.5 [facility] Comment on above: Performed By: #### B MP, MG, CHELO, LACTIC ####[facility] [address] [place] [address] Lab Director: Ramiro Mark MD Phosphorus, Inorg. 3.9 mg/dL Normal 2.5-4.5 [facility] Comment on above: Performed By: #### M G, CDP, VNCR, CHELO, BMP, TRIG ####[facility] [address] [place] [address] Lab Director: Ramiro Mark MD Phosphorus, Inorg. 3.9 mg/dL Normal 2.5-4.5 [facility] Comment on above: Performed By: #### B MP, MG, LACTIC, CHELO ####[facility] [address] [place] [address] Lab Director: Ramiro Mark MD SURGICAL PATHOLOGY REPORTon 01-20-2024 Surgical Pathology Report [facility] Triglycerideon 01-20-2024 Triglyceride [Mass/Vol] 62 mg/dL NINF - 150 mg/dL [facility] Triglycerideson 01-20-2024 Triglyceride [Mass/Vol] 62 mg/dL Normal <150 [facility] Comment on above: Result Comment: Trig lyceride Guidelines: <150 Desirable 150- 199 Borderline 200-499 High >499 Very high Based on AHA Guidelines for fasting triglyceride, July 2012. Performed By: #### M G, CDP, VNCR, CHELO, BMP, TRIG ####[facility] [address] [place] [address] Lab Director: Ramiro Mark MD VDRL CSFon 01-20-2024 Reagin Ab VDRL Ql (CSF) Non-Reactive NONREACTIVE [facility] VDRL, Qual, CSFon 01-20-2024 VDRL, Qual, CSF Non-Reactive Normal NR [facility] Comment on above: Performed By: #### C TP, CGLU, MEVP, CFVD, CFCNT ####[facility] [address] [place] [address] Lab Director: Ramiro Mark MD#### AWSEBASSF, ALYMCT ####[facility] [address] [place] [address] Lab Director: Wil Swanson MD Vancomycin Level, Randomon 0 01-20-2024 Vancomycin [Mass/Vol] 18.9 ug/mL 5.0 - 40.0 ug/mL [facility] Vancomycin,Randomon 01-20-20 Vancomycin 18.9 ug/mL Normal 5.0-40.0 [facility] Comment on above: Result Comment: High er trough serum vancomycin concentrations of 15-20 ug/mL are recommended for complicated infections such as bacteremia, endocarditis, osteomyelitis, meningitis, and hospital acquired pneumonia. Performed By: #### M G, CDP, VNCR, CHELO, BMP, TRIG ####[facility] [address] [place] [address] [id number] Lab Director: Ramiro Mark MD APTTon 01-19-2024 aPTT Coag (Bld) [Time] 23.4 s TRIP [facility] aPTT Coag (Bld) [Time] 23.4 s Normal 23.0-36.5 [facility] Comment on above: Result Comment: IV H eparin Therapy Range:66.0-92.0 sec Performed By: #### P TT, CHELO, PRCAL, MG, BMP, PT ####[facility] [address] [place] [address] [id number] Lab Director: Ramiro Mark MD Ammoniaon 01-19-2024 Ammonia (P) [Moles/Vol] 32 umol/L 16 - 60 umol/L [facility] Ammonia (P) [Moles/Vol] 32 umol/L Normal 16-60 [facility] Comment on above: Result Comment: Spec imen lipemia has exceeded the interference as defined by Jaime. Results may be affected. Performed By: #### T SHX, JHON ####[facility] [address] [place] [address] [id number] Lab Director: Ramiro Mark MD Arterial Bld Gas,POCon 01-18 Jody Test Positive [facility] FIO2 30.0 [facility] HCO3 (Bld) [Moles/Vol] 23.9 mmol/L Normal 21.0-28.[address] [facility] Mode of Delivery PRVC Normal [facility] Negative Base Excess (calc) 0.9 mmol/L Normal 0.0-2.0 [facility] Oxygen saturation in Blood 98.8 % High 94.0-98.0 [facility] pCO2, Arterial 38.9 mm Hg Normal 35.0-48.0 [facility] pH, Arterial 7.395 Normal 7.350-7.450 [facility] pO2, Arterial 124.3 mm Hg High 83.0-108.0 [facility] Site Drawn Right Radial Artery [facility] Jody Test Positive [facility] FIO2 28.0 [facility] HCO3 (Bld) [Moles/Vol] 24.1 mmol/L Normal 21.0-28.[address] [facility] O2 Device Cannula [facility] Oxygen saturation in Blood 95.5 % Normal 94.0-98.0 [facility] pCO2, Arterial 35.5 mm Hg Normal 35.0-48.0 [facility] pH, Arterial 7.439 Normal 7.350-7.450 [facility] pO2, Arterial 74.9 mm Hg Low 83.0-108.0 [facility] Positive Base Excess (calc) 0.2 mmol/L Normal 0.0-3.0 [facility] Site Drawn Right Radial Artery [facility] Arterial Blood Gas, POCon Jody Test Positive [facility] [employer] FIO2 30.0 [facility] [employer] HCO3 (Bld) [Moles/Vol] 23.9 mmol/L 21.0 - 28.0 mmol/L [facility] [employer] Mode PRVC [facility] Negative Base Excess, Art 0.9 mmol/L 0.0 - 2.0 mmol/L [facility] [employer] Oxygen saturation in Blood 98.8 % High 94.0 - 98.0 % [facility] [employer] POC pCO2 38.9 [facility] [employer] POC pH 7.395 7.350 - 7.450 [facility] POC PO2 124.3 High [facility] Sample Site Right Radial Artery [facility] Jody Test Positive [facility] FIO2 28.0 [facility] HCO3 (Bld) [Moles/Vol] 24.1 mmol/L 21.0 - 28.0 mmol/L [facility] Interpretation and review of laboratory results Abnormal [facility] O2 Delivery Device Cannula [facility] Oxygen saturation in Blood 95.5 % 94.0 - 98.0 % [facility] POC pCO2 35.5 [facility] POC pH 7.439 7.350 - 7.450 [facility] POC PO2 74.9 Low [facility] Positive Base Excess, Art 0.2 mmol/L 0.0 - 3.0 mmol/L [facility] Sample Site Right Radial Artery [facility] Basic Metab w/rfx MGon 01-18 Anion gap [Moles/Vol] 22 mmol/L High 9-16 [facility] Comment on above: Performed By: #### C RP, ALCB, SED, GLYHGB, TROPI, MARCIO, CK, CDP, BH, BMPX ####[facility] [address] [place] [address] Lab Director: Ramiro Mark MD Calcium [Mass/Vol] 9.0 mg/dL Normal 8.6-10.4 [facility] Comment on above: Performed By: #### C RP, ALCB, SED, GLYHGB, TROPI, MARCIO, CK, CDP, BH, BMPX ####[facility] [address] [place] [address] Lab Director: Ramiro Mark MD Chloride [Moles/Vol] 94 mmol/L Low 98-107 [facility] Comment on above: Performed By: #### C RP, ALCB, SED, GLYHGB, TROPI, MARCIO, CK, CDP, BH, BMPX ####[facility] [address] [place] [address] Lab Director: Ramiro Mark MD CO2 [Moles/Vol] 15 mmol/L Low 20-31 [facility] Comment on above: Performed By: #### C RP, ALCB, SED, GLYHGB, TROPI, MARCIO, CK, CDP, BH, BMPX ####[facility] [place] [address] Lab Director: Ramiro Mark MD Creatinine [Mass/Vol] 1.7 mg/dL High 0.70-1.20 [facility] Comment on above: Performed By: #### C RP, ALCB, SED, GLYHGB, TROPI, MARCIO, CK, CDP, BH, BMPX ####[address] [address] Lab Director: Ramiro Mark MD GFR/1.73 sq M.predicted among non-blacks MDRD (S/P/Bld) [Vol rate/Area] 48 mL/min/{1.73_m2} Low >60 [facility] Comment on above: Result Comment: Thes e results are not intended for use in patients <18 years of age.eGFR results are calculated without a race factor using the 2020 CKD-EPI equation.Careful clinical correlation is recommended, particularly when comparing to results calculated using previous equations.The CKD-EPI equation is less accurate in patients with extremes of muscle mass, extra-renal metabolism of creatine, excessive creatine ingestion, or following therapy that affects renal tubular secretion. Performed By: #### C RP, ALCB, SED, GLYHGB, TROPI, MARCIO, CK, CDP, BH, BMPX ####[facility] [address] [place] [address] Lab Director: Ramiro Mark MD Glucose [Mass/Vol] 530 mg/dL Critically high 74-[address] [facility] Comment on above: Performed By: #### C RP, ALCB, SED, GLYHGB, TROPI, MARCIO, CK, CDP, BH, BMPX ####[address] [address] [facility] Director: Ramiro Mark MD Potassium [Moles/Vol] 5.6 mmol/L High 3.7-5.3 [facility] Comment on above: Performed By: #### C RP, ALCB, SED, GLYHGB, TROPI, MARCIO, CK, CDP, BH, BMPX ####[facility] [address] [place], [place] [id number] [facility] Director: Ramiro Mark MD Sodium [Moles/Vol] 131 mmol/L Low 136-145 [facility] Comment on above: Performed By: #### C RP, ALCB, SED, GLYHGB, TROPI, MARCIO, CK, CDP, BH, BMPX ####[facility] [address] [place] [phone] lab Director: Ramiro Mark MD Urea nitrogen [Mass/Vol] 47 mg/dL High 6-20 [facility] Comment on above: Performed By: #### C RP, ALCB, SED, GLYHGB, TROPI, MARCIO, CK, CDP, BH, BMPX ####[facility] [address] [place] [address] lab Director: Ramiro Mark MD Basic Metabolic Panel -0 Anion gap [Moles/Vol] 12 mmol/L 9 - 16 mmol/L [facility] Calcium [Mass/Vol] 8.2 mg/dL Low 8.6 - 10. 4 mg/dL [facility] Chloride [Moles/Vol] 105 mmol/L 98 - 10 7 mmol/L [facility] CO2 [Moles/Vol] 20 mmol/L 20 - 31 mmol/L [facility] Creatinine [Mass/Vol] 1.5 mg/dL High 0.70 - 1.20 mg/dL [facility] GFR/1.73 sq M.predicted MDRD (S/P/Bld) [Vol rate/Area] 55 mL/min/{1.73_m2} Low - PINF [facility] Glucose [Mass/Vol] 257 mg/dL High 74 - 99 mg/dL [facility] Interpretation and review of laboratory results Abnormal [facility] Potassium [Moles/Vol] 3.8 mmol/L 3.7 - 5.3 mmol/L [facility] Sodium [Moles/Vol] 137 mmol/L 136 - 145 mmol/L [facility] Urea nitrogen [Mass/Vol] 41 mg/dL High 6 - 20 mg/dL [facility] Anion gap [Moles/Vol] 10 mmol/L 9 - 16 mmol/L [facility] Calcium [Mass/Vol] 8.2 mg/dL Low 8.6 - 10. 4 mg/dL [facility] Chloride [Moles/Vol] 105 mmol/L 98 - 10 7 mmol/L [facility] CO2 [Moles/Vol] 22 mmol/L 20 - 31 mmol/L [facility] Creatinine [Mass/Vol] 1.6 mg/dL High 0.70 - 1.20 mg/dL [facility] GFR/1.73 sq M.predicted MDRD (S/P/Bld) [Vol rate/Area] 51 mL/min/{1.73_m2} Low - PINF [facility] Glucose [Mass/Vol] 208 mg/dL High 74 - 99 mg/dL [facility] Interpretation and review of laboratory results Abnormal [facility] Potassium [Moles/Vol] 4.4 mmol/L 3.7 - 5.3 mmol/L [facility] Sodium [Moles/Vol] 137 mmol/L 136 - 145 mmol/L [facility] Urea nitrogen [Mass/Vol] 42 mg/dL High 6 - 20 mg/dL [facility] Basic Metabolic Panel w/ Ref jose to MGon 01-19-2024 Anion gap [Moles/Vol] 22 mmol/L High 9 - 16 mmol/L [facility] Calcium [Mass/Vol] 9.0 mg/dL 8.6 - 10. 4 mg/dL [facility] Chloride [Moles/Vol] 94 mmol/L Low 98 - 10 7 mmol/L [facility] CO2 [Moles/Vol] 15 mmol/L Low 20 - 31 mmol/L [facility] Creatinine [Mass/Vol] 1.7 mg/dL High 0.70 - 1.20 mg/dL [facility] GFR/1.73 sq M.predicted MDRD (S/P/Bld) [Vol rate/Area] 48 mL/min/{1.73_m2} Low - PINF [facility] Glucose [Mass/Vol] 530 mg/dL Critically high 74 - 9 9 mg/dL [facility] Interpretation and review of laboratory results Abnormal [facility] Potassium [Moles/Vol] 5.6 mmol/L High 3.7 - 5.3 mmol/L [facility] Sodium [Moles/Vol] 131 mmol/L Low 136 - 145 mmol/L [facility] Urea nitrogen [Mass/Vol] 47 mg/dL High 6 - 20 mg/dL [facility] Basic Metabolic Profon 01-18 Anion gap [Moles/Vol] 12 mmol/L Normal 9-16 [facility] Comment on above: Performed By: #### LEENA Purcell, CHELO ####[facility] Hospital[facility] [address] [place] [address] Lab Director: Ramiro Mark MD Calcium [Mass/Vol] 8.2 mg/dL Low 8.6-10.4 [facility] Comment on above: Performed By: #### LEENA Purcell, CHELO ####[facility] Hospital[facility] [address] [place], [place] [phone] Lab Director: Ramiro Mark MD Chloride [Moles/Vol] 105 mmol/L Normal 98-107 [facility] Comment on above: Performed By: #### LEENA Purcell, CHELO ####[facility] HospitalLOOKS[facility] [address] [place], [place] [id number] Lab Director: Ramiro Mark MD CO2 [Moles/Vol] 20 mmol/L Normal 20-31 [facility] Comment on above: Performed By: #### LEENA Purcell, CHELO ####[facility] [address] [place] [address] Lab Director: Ramiro Mark MD Creatinine [Mass/Vol] 1.5 mg/dL High 0.70-1.20 [facility] Comment on above: Performed By: #### LEENA Purcell, CHELO ####[facility] [address] [place] [address] [phone] Director: Ramiro Mark MD GFR/1.73 sq M.predicted among non-blacks MDRD (S/P/Bld) [Vol rate/Area] 55 mL/min/{1.73_m2} Low >60 [facility] Comment on above: Result Comment: Thes e results are not intended for use in patients <18 years of age.eGFR results are calculated without a race factor using the 2020 CKD-EPI equation.Careful clinical correlation is recommended, particularly when comparing to results calculated using previous equations.The CKD-EPI equation is less accurate in patients with extremes of muscle mass, extra-renal metabolism of creatine, excessive creatine ingestion, or following therapy that affects renal tubular secretion. Performed By: #### LEENA Purcell, CHELO ####[facility] [address] [place] [address] [phone] Director: Ramiro Mark MD Glucose [Mass/Vol] 257 mg/dL High 74-99 [facility] Comment on above: Performed By: #### LEENA Purcell, CHELO ####[facility] [address] [place] [address] [phone] Director: Ramiro Mark MD Potassium [Moles/Vol] 3.8 mmol/L Normal 3.7-5.3 [facility] Comment on above: Performed By: #### LEENA Purcell, CHELO ####[facility] [address] [place], [place] [phone] Director: Ramiro Mark MD Sodium [Moles/Vol] 137 mmol/L Normal 136-145 [facility] Comment on above: Performed By: #### M G, BMP, CHELO ####[facility] [address] [place], [place] [address])[phone] Director: Ramiro Mark MD Urea nitrogen [Mass/Vol] 41 mg/dL High 6-20 [facility] Comment on above: Performed By: #### M G, BMP, CHELO ####[facility] [address] [place], [place] [address])[phone] Director: Ramiro Mark MD Anion gap [Moles/Vol] 10 mmol/L Normal 9-16 [facility] Comment on above: Performed By: #### P TT, CHELO, PRCAL, MG, BMP, PT ####[facility] [address] [place] [phone])[phone] Director: Ramiro Mark MD Calcium [Mass/Vol] 8.2 mg/dL Low 8.6-10.4 [facility] Comment on above: Performed By: #### P TT, CHELO, PRCAL, MG, BMP, PT ####[facility] [address] [place] [address])[phone] Director: Ramiro Mark MD Chloride [Moles/Vol] 105 mmol/L Normal 98-107 [facility] Comment on above: Performed By: #### P TT, CHELO, PRCAL, MG, BMP, PT ####[address] [address])[phone] Director: Ramiro Mark MD CO2 [Moles/Vol] 22 mmol/L Normal 20-31 [facility] Comment on above: Performed By: #### P TT, CHELO, PRCAL, MG, BMP, PT ####[facility] [address] [place] [address])[phone] Director: Ramiro Mark MD Creatinine [Mass/Vol] 1.6 mg/dL High 0.70-1.20 [facility] Comment on above: Performed By: #### P TT, CHELO, PRCAL, MG, BMP, PT ####[facility] [address] [place] [address] Lab Director: Ramiro Mark MD GFR/1.73 sq M.predicted among non-blacks MDRD (S/P/Bld) [Vol rate/Area] 51 mL/min/{1.73_m2} Low >60 [facility] Comment on above: Result Comment: Thes e results are not intended for use in patients <18 years of age.eGFR results are calculated without a race factor using the 2020 CKD-EPI equation.Careful clinical correlation is recommended, particularly when comparing to results calculated using previous equations.The CKD-EPI equation is less accurate in patients with extremes of muscle mass, extra-renal metabolism of creatine, excessive creatine ingestion, or following therapy that affects renal tubular secretion. Performed By: #### P TT, CHELO, PRCAL, MG, BMP, PT ####[address] [address] Lab Director: Ramiro Mark MD Glucose [Mass/Vol] 208 mg/dL High 74-99 [facility] Comment on above: Performed By: #### P TT, CHELO, PRCAL, MG, BMP, PT ####[address] [address] Lab Director: Ramiro Mark MD Potassium [Moles/Vol] 4.4 mmol/L Normal 3.7-5.3 [facility] Comment on above: Result Comment: SPEC IMEN SLIGHTLY HEMOLYZED, RESULTS MAY BE ADVERSELY AFFECTED. Performed By: #### P TT, CHELO, PRCAL, MG, BMP, PT ####[facility] [address] [place] [address] Lab Director: Ramiro Mark MD Sodium [Moles/Vol] 137 mmol/L Normal 136-145 [facility] Comment on above: Performed By: #### P TT, CHELO, PRCAL, MG, BMP, PT ####[facility] [address] [place] [address] Lab Director: Ramiro Mark MD Urea nitrogen [Mass/Vol] 42 mg/dL High 6-20 [facility] Comment on above: Performed By: #### P TT, CHELO, PRCAL, MG, BMP, PT ####[facility] [address] [place], [place] [id number] lab Director: Ramiro Mark MD Beta Hydroxybutyrateon 01-18 Beta Hydroxybutyrate 3.37 mmol/L High 0.02-0.27 [facility] Comment on above: Performed By: #### C RP, ALCB, SED, GLYHGB, TROPI, MARCIO, CK, CDP, BH, BMPX ####[facility] [address] [place], [place] [phone] lab Director: Ramiro Mark MD Beta-Hydroxybutyrateon 01-18 Beta hydroxybutyrate [Mass/Vol] 3.37 mmol/L High 0.02 - 0.27 mmol/L [facility] C-Reactive Proteinon 024 CRP High sensitivity method [Mass/Vol] 3.7 mg/L 0.0 - 5.0 mg/L [facility] CRP [Mass/Vol] 3.7 mg/L Normal 0.0-5.0 [facility] Comment on above: Performed By: #### C RP, ALCB, SED, GLYHGB, TROPI, MARCIO, CK, CDP, BH, BMPX ####[facility] [address] [place] [phone] lab Director: Ramiro Mark MD CBC with Auto Differentialon 01-19-2024 Basophils (Bld) [#/Vol] 0.08 10*3/uL [facility] Basophils/100 WBC (Bld) 1 % 0 - 2 % [facility] Eosinophils (Bld) [#/Vol] 0.03 10*3/uL [facility] Eosinophils/100 WBC (Bld) 0 % Low 1 - 4 % [facility] Erythrocyte distribution width (RBC) [Ratio] 13.6 % 11.8 - 14.4 % [facility] Hematocrit (Bld) [Volume fraction] 37.2 % Low 40.7 - 50.3 % [facility] Hemoglobin (Bld) [Mass/Vol] 12.9 g/dL Low 13.0 - 17.0 g/dL [facility] Immature granulocytes (Bld) [#/Vol] 0.07 10*3/uL [facility] Immature granulocytes/100 WBC (Bld) 1 % High 0 [facility] Interpretation and review of laboratory results Abnormal [facility] Lymphocytes/100 WBC (Bld) 6 % Low 24 - 43 % [facility] Lymphocytes/100 WBC (Bld) 0.77 % Low [facility] MCH (RBC) [Entitic mass] 29.3 pg 25.2 - 33.5 pg [facility] MCHC (RBC) [Mass/Vol] 34.7 g/dL 28.4 - 34.8 g/dL [facility] MCV (RBC) [Entitic vol] 84.4 fL 82.6 - 102.9 fL [facility] Monocytes/100 WBC (Bld) 1 % Low 3 - 12 % [facility] HEALTH Monocytes/100 WBC (Bld) 0.18 % [facility] Neutrophils/100 WBC (Bld) 91 % High 36 - 65 % [facility] Nucleated RBC/100 WBC (Bld) [Ratio] 0.0 % 0.0 per 100 WBC [facility] Platelet mean volume (Bld) [Entitic vol] 10.9 fL 8.1 - 13.5 fL [facility] Platelets (Bld) [#/Vol] 201 10*3/uL [facility] RBC (Bld) [#/Vol] 4.41 10*6/uL 4.21 - 5.7 7 m/uL [facility] Segmented neutrophils/100 WBC (Bld) 12.03 % High [facility] WBC other (Bld) [#/Vol] 13.2 High [facility] CBC with Diffon 01-19-2024 Abs. Basophil 0.08 k/uL Normal 0.00-0.20 [facility] Comment on above: Performed By: #### C RP, ALCB, SED, GLYHGB, TROPI, MARCIO, CK, CDP, BH, BMPX ####[facility] [address] [place], [place] [address])[phone] Director: Ramiro Mark MD Abs.Imm.Granulocyte 0.07 k/uL Normal 0.00-0.30 [facility] Comment on above: Performed By: #### C RP, ALCB, SED, GLYHGB, TROPI, MARCIO, CK, CDP, BH, BMPX ####[place], [place] [address])[phone] Director: Ramiro Mark MD Abs.Neutrophil (Seg) 12.03 k/uL High 1.50-8.10 [facility] Comment on above: Performed By: #### C RP, ALCB, SED, GLYHGB, TROPI, MARCIO, CK, CDP, BH, BMPX ####[facility] [address]ij[address] [place], [place] [address])[phone] Director: Ramiro Mark MD Basophils/100 WBC (Bld) 1 % Normal 0-2 [facility] Comment on above: Performed By: #### C RP, ALCB, SED, GLYHGB, TROPI, MARCIO, CK, CDP, BH, BMPX ####[facility] [address]gf[address] [place], [place] [address])[phone] Director: Ramiro Mark MD Eosinophils (Bld) [#/Vol] 0.03 10*3/uL Normal 0.00-0.44 [facility] Comment on above: Performed By: #### C RP, ALCB, SED, GLYHGB, TROPI, MARCIO, CK, CDP, BH, BMPX ####[facility] [address] [place], [place] [address])[phone] Director: Ramiro Mark MD Eosinophils/100 WBC (Bld) 0 % Low 1-4 [facility] Comment on above: Performed By: #### C RP, ALCB, SED, GLYHGB, TROPI, MARCIO, CK, CDP, BH, BMPX ####[facility] [address]vx[address] [place], [place] [address])[phone] Director: Ramiro Mark MD Erythrocyte distribution width (RBC) [Ratio] 13.6 % Normal 11.8-14.4 [facility] Comment on above: Performed By: #### C RP, ALCB, SED, GLYHGB, TROPI, MARCIO, CK, CDP, BH, BMPX ####[place], [place] [address])[phone] Director: Ramiro Mark MD Hematocrit (Bld) [Volume fraction] 37.2 % Low 40.7-50.3 [facility] Comment on above: Performed By: #### C RP, ALCB, SED, GLYHGB, TROPI, MARCIO, CK, CDP, BH, BMPX ####[facility] [address] [place], [place] [address])[phone] Director: Ramiro Mark MD Hemoglobin (Bld) [Mass/Vol] 12.9 g/dL Low 13.0-17.0 [facility] Comment on above: Performed By: #### C RP, ALCB, SED, GLYHGB, TROPI, MARCIO, CK, CDP, BH, BMPX ####[facility] [address] [place], [place] [address])[phone] Director: Ramiro Mark MD Immature granulocytes/100 WBC (Bld) 1 % High 0 [facility] Comment on above: Performed By: #### C RP, ALCB, SED, GLYHGB, TROPI, MARCIO, CK, CDP, BH, BMPX ####[facility] [address]ob[address]ps1580 [place] [address] Lab Director: Ramiro Mark MD Lymphocytes (Bld) [#/Vol] 0.77 10*3/uL Low 1.10-3.70 [facility] Comment on above: Performed By: #### C RP, ALCB, SED, GLYHGB, TROPI, MARCIO, CK, CDP, BH, BMPX ####[facility] [address]xs[address] [place], [place] [address])[phone] Director: Ramiro Mark MD Lymphocytes/100 WBC (Bld) 6 % Low 24-43 [facility] Comment on above: Performed By: #### C RP, ALCB, SED, GLYHGB, TROPI, MARCIO, CK, CDP, BH, BMPX ####[place], [place] [address])[phone] Director: Ramiro Mark MD MCH (RBC) [Entitic mass] 29.3 pg Normal 25.2-33.5 [facility] Comment on above: Performed By: #### C RP, ALCB, SED, GLYHGB, TROPI, MARCIO, CK, CDP, BH, BMPX ####[facility] [address] [place], [place] [address])[phone] Director: Ramiro Mark MD MCHC (RBC) [Mass/Vol] 34.7 g/dL Normal 28.4-34.8 [facility] Comment on above: Performed By: #### C RP, ALCB, SED, GLYHGB, TROPI, MARCIO, CK, CDP, BH, BMPX ####[facility] [address] [place], [place] [address])[phone] Director: Ramiro Mark MD MCV (RBC) [Entitic vol] 84.4 fL Normal 82.6-102.9 [facility] Comment on above: Performed By: #### C RP, ALCB, SED, GLYHGB, TROPI, MARCIO, CK, CDP, BH, BMPX ####[facility] [address] [place], [place] [address])[phone] Director: Ramiro Mark MD Monocytes (Bld) [#/Vol] 0.18 10*3/uL Normal 0.10-1.20 [facility] Comment on above: Performed By: #### C RP, ALCB, SED, GLYHGB, TROPI, MARCIO, CK, CDP, BH, BMPX ####[address] [place] [address] Lab Director: Ramiro Mark MD Monocytes/100 WBC (Bld) 1 % Low 3-12 [facility] Comment on above: Performed By: #### C RP, ALCB, SED, GLYHGB, TROPI, MARCIO, CK, CDP, BH, BMPX ####[address] [address])[phone] Director: Ramiro Mark MD Neutrophil (Seg) 91 % High 36-65 [facility] Comment on above: Performed By: #### C RP, ALCB, SED, GLYHGB, TROPI, MARCIO, CK, CDP, BH, BMPX ####[facility] [address] [place] [address] Lab Director: Ramiro Mark MD NRBC Automated 0.0 per 100 WBC Normal 0.0 [facility] Comment on above: Performed By: #### C RP, ALCB, SED, GLYHGB, TROPI, MARCIO, CK, CDP, BH, BMPX ####[place], [place] [address])[phone] Director: Ramiro Mark MD Platelet mean volume (Bld) [Entitic vol] 10.9 fL Normal 8.1-13.5 [facility] Comment on above: Performed By: #### C RP, ALCB, SED, GLYHGB, TROPI, MARCIO, CK, CDP, BH, BMPX ####[address] [place] [address] Lab Director: Ramiro Mark MD Platelets (Bld) [#/Vol] 201 10*3/uL Normal 138-453 [facility] Comment on above: Performed By: #### C RP, ALCB, SED, GLYHGB, TROPI, MARCIO, CK, CDP, BH, BMPX ####[facility] [address] [place], [place] [phone] Lab Director: Ramiro Mark MD RBC (Bld) [#/Vol] 4.41 10*6/uL Normal 4.21-5.77 [facility] Comment on above: Performed By: #### C RP, ALCB, SED, GLYHGB, TROPI, MARCIO, CK, CDP, BH, BMPX ####[facility] [address] [place] [address] Lab Director: Ramiro Mark MD WBC (Bld) [#/Vol] 13.2 10*3/uL High 3.5-11.3 [facility] Comment on above: Performed By: #### C RP, ALCB, SED, GLYHGB, TROPI, MARCIO, CK, CDP, BH, BMPX ####[facility] [address] [place] [address] Lab Director: Ramiro Mark MD CKon 01-19-2024 CK [Catalytic activity/Vol] 226 U/L 39 - 308 U/L [facility] CSF Cell Counton 01-19-2024 Appearance (U) Clear [facility] Comment on above: Performed By: #### C TP, CGLU, MEVP, CFVD, CFCNT ####[facility] [address] [place] [address] Lab Director: Ramiro Mark MD#### AWSEBASSDESHAUN Lopez ####[address] [address] Lab Director: Wil Swanson MD RBC (Bld) [#/Vol] 0 10*6/uL Normal 0 [facility] Comment on above: Performed By: #### C TP, CGLU, MEVP, CFVD, CFCNT ####[facility] [address] [place] [address] Lab Director: Ramiro Mark MD#### ARTUR BRIGGSYMCT ####[facility] [address] [place] [address] Lab Director: Wil Swanson MD Tube Number 3 Normal [facility] Comment on above: Performed By: #### C TP, CGLU, MEVP, CFVD, CFCNT ####[facility] [address] [place] [address] Lab Director: Ramiro Mark MD#### ARTUR BRIGGSYMCT ####[facility] [address] [place] [id number] Lab Director: Wil Swanson MD WBC (Bld) [#/Vol] 0 10*3/uL Normal <5 [facility] Comment on above: Performed By: #### C TP, CGLU, MEVP, CFVD, CFCNT ####[address] [address] Lab Director: Ramiro Mark MD#### [place], ARTURYMCT ####[facility] [address] [place] [address] Lab Director: Wil Swanson MD Xanthochromia ABSENT Normal [facility] Comment on above: Performed By: #### C TP, CGLU, MEVP, CFVD, CFCNT ####[facility] [address] [place] [address] Lab Director: Ramiro Mark MD#### [place], ALYMCT ####[facility] [address] [place] [phone] Lab Director: Wil Swanson MD Volume 12 mL Normal [facility] Comment on above: Performed By: #### C TP, CGLU, MEVP, CFVD, CFCNT ####[facility] HospitalLOOKSIM[facility] [address]wxdshm79[address] [place] [address] lab Director: Ramiro Mark MD#### AWNCSF, ALYMCT ####[facility] [address] [place] [address] lab Director: Wil Swanson MD CT HEAD [...] report was conveyed verbally to Dr. Steve Alvarado, by CORE associate,Daija Benson at 11:07 p.m. on 01/18/2024. Interpreted by: Ashley Cintron MD Signed by: Ashley Cintron MD 01/19/24 Final result Normal [facility] Calcium, Ionicon 01-19-2024 Calcium [Moles/Vol] 1.13 mmol/L Normal 1.13-1.33 [facility] Comment on above: Performed By: #### I OCAL ####[facility] HospitalLOOKSIM[facility] [address] [place], [place] [address] lab Director: Ramiro Mark MD Calcium, Ionizedon Calcium.ionized (Bld) [Moles/Vol] 1.13 mmol/L 1.13 - 1.33 mmol/L [facility] Cell Count with Differential , CSFon 01-19-2024 Appearance (CSF) Clear [facility] Nucleated cells Manual cnt (Body fld) [#/Vol] 0 NINF [facility] RBC Manual cnt (Body fld) [#/Vol] 0 0 cells/uL [facility] Specimen volume (CSF) 12 mL [facility] [employer] Tube number Nom (CSF) [ID] 3 [facility] Xanthochromia Ql (CSF) ABSENT TRIP [facility] Creatine Kinaseon 01-19-2024 CK [Catalytic activity/Vol] 226 U/L Normal 39-308 [facility] Comment on above: Performed By: #### C RP, ALCB, SED, GLYHGB, TROPI, MARCIO, CK, CDP, BH, BMPX ####[facility] [address] [place], [place] [phone] Lab Director: Ramiro Mark MD DRUG SCREEN MULTI URINEon Amphetamines Ql (U) Negative NEGATIVE [facility] Barbiturates Screen Ql (U) Negative NEGATIVE [facility] Benzodiazepines Ql (U) Negative NEGATIVE [facility] Cannabinoids Screen Ql (U) Negative NEGATIVE [facility] Cocaine Ql (U) Negative NEGATIVE [facility] fentaNYL Ql (U) Negative NEGATIVE [facility] Methadone Ql (U) Negative NEGATIVE [facility] Opiates Screen Ql (U) Negative NEGATIVE [facility] oxyCODONE Ql (U) Negative NEGATIVE [facility] Phencyclidine Ql (U) Negative NEGATIVE [facility] Test Information Assay provides rapid clinical screening only. Presumptive positive results for legal purposes should be confirmed by another method. To request confirmation, please call the lab within 7 days of sample submission. [facility] Drug Scr, Abuse, Uron 2023 Amphetamine(s),Ur Negative Normal NEG [facility] Comment on above: Result Comment: Cuto ff: 1000 ng/mL Performed By: #### D AU ####[facility] [address] [place] [address] Lab Director: Ramiro Mark MD Barbiturate(s),Ur Negative Normal NEG [facility] Comment on above: Result Comment: Cuto ff: 200 ng/ml Performed By: #### D AU ####[address] [address] Lab Director: Ramiro Mark MD Benzodiazepine(s) Negative Normal NEG [facility] Comment on above: Result Comment: Cuto ff: 200 ng/ml Performed By: #### D AU ####[address] [address] Lab Director: Ramiro Mark MD Cannabinoid(s),Ur Negative Normal NEG [facility] Comment on above: Result Comment: Cuto ff: 50 ng/ml Performed By: #### D AU ####[address] [address] Lab Director: Ramiro Mark MD Cocaine Metabolite Negative Normal [facility] Comment on above: Result Comment: Cuto ff: 300 ng/ml Performed By: #### D AU ####[address] [address] Lab Director: Ramiro Mark MD Fentanyl, Urine Negative Normal NE[facility] Comment on above: Result Comment: Cuto ff: 5 ng/ml Performed By: #### D AU ####[address] [address] Lab Director: Ramiro Mark MD Interpretive Info Assay provides rapid clinical screening only. Presumptive positive results for Normal [facility] Comment on above: Result Comment: lega l purposes should be confirmed by another method. To request confirmation, please call the lab within 7 days of sample submission. Performed By: #### D AU ####[address] [address] Lab Director: Ramiro Mark MD Methadone Ql (U) Negative Normal NEG [facility] Comment on above: Result Comment: Cuto ff: 300 ng/ml Performed By: #### D AU ####[address] [phone] Director: Ramiro Mark MD Opiate(s), Ur Negative Normal NEG [facility] Comment on above: Result Comment: Cuto ff: 300 ng/ml Performed By: #### D AU ####[address] [address] Lab Director: Ramiro Mark MD Oxycodone, Urine Negative Normal NEG [facility] Comment on above: Result Comment: Cuto ff: 100 ng/ml Performed By: #### D AU ####[address] [address] Lab Director: Ramiro Mark MD Phencyclidine, Ur Negative Normal NEG [facility] Comment on above: Result Comment: Cuto ff: 25 ng/ml Performed By: #### D AU ####[address] [address] Lab Director: Ramiro Mark MD Ethanolon 01-19-2024 Ethanol percent <0.010 NINF - 0.010 % [facility] Ethanolamine [Mass/Vol] mg/dL NINF - 10 mg/dL [facility] Ethanol Alcoholon 01-19-2024 Ethanol [Mass/Vol] mg/dL Normal <10 [facility] Comment on above: Performed By: #### C RP, ALCB, SED, GLYHGB, TROPI, MARCIO, CK, CDP, BH, BMPX ####[facility] [address] [place], [place] [id number] Lab Director: Rmairo Mark MD Ethanol percent <0.010 Normal <0.010 [facility] Comment on above: Performed By: #### C RP, ALCB, SED, GLYHGB, TROPI, MARCIO, CK, CDP, BH, BMPX ####[facility] [address] [place] [address] Lab Director: Ramiro Mark MD Glucose (POC)on 01-19-2024 Glucose [Mass/Vol] 199 mg/dL High 74-100 [facility] Glucose CSFon 01-19-2024 Glucose (CSF) [Mass/Vol] 194 mg/dL High 40 - 70 mg/dL [facility] Glucose,CSFon 01-19-2024 Glucose [Mass/Vol] 194 mg/dL High 40-70 [facility] Comment on above: Performed By: #### C TP, CGLU, MEVP, CFVD, CFCNT ####[facility] [address] [place], [place] [id number] Lab Director: Ramiro Mark MD#### AWNCSF, ALYMCT ####[facility] [address] [place] [address] Lab Director: Wil Swanson MD Glucose,Whole Bloodon 2023 Glucose [Mass/Vol] 77 mg/dL Normal 75-110 [facility] Glucose [Mass/Vol] 111 mg/dL High 75-110 [facility] Glucose [Mass/Vol] 179 mg/dL High 75-110 [facility] Glucose [Mass/Vol] 257 mg/dL High 75-110 [facility] Glucose [Mass/Vol] 255 mg/dL High 75-110 [facility] Glucose [Mass/Vol] 235 mg/dL High 75-110 [facility] Glucose [Mass/Vol] 178 mg/dL High 75-110 [facility] Glucose [Mass/Vol] 190 mg/dL High 75-110 [facility] Glucose [Mass/Vol] 235 mg/dL High 75-110 [facility] Glucose [Mass/Vol] 269 mg/dL High 75-110 [facility] Glucose [Mass/Vol] 303 mg/dL High 75-110 [facility] Glucose [Mass/Vol] 297 mg/dL High 75-110 [facility] Glucose [Mass/Vol] 496 mg/dL Critically high 75-[address] [facility] Glucose [Mass/Vol] 375 mg/dL High 75-110 [facility] Glucose [Mass/Vol] 548 mg/dL Critically high 75-[address] [facility] Glucose [Mass/Vol] 506 mg/dL Critically high 75-[address] [facility] Comment on above: Result Comment: Crit icaesequiel Noted Guidance for puncture of Lum bar spineon 01-19-2024 Radiology Study observation (narrative) [facility] HSV DNA, PCRon 01-19-2024 HSV source .CSF [facility] Comment on above: Performed By: #### A HSVPC ####[facility] [address] [place] [address] Lab Director: KAYLYNN Moreno [address] [place] [address] Lab Director: Wil Swanson MD Hemoglobin A1Con 01-19-2024 Average glucose Estimated from glycated hemoglobin (Bld) [Mass/Vol] 298 mg/dL [facility] HbA1c (Bld) [Mass fraction] 12.0 % High 4.0 - 6.0 % [facility] Interpretation and review of laboratory results Abnormal [facility] Glucose [Mass/Vol] 298 mg/dL [facility] Comment on above: Result Comment: The ADA and AACC recommend providing the estimated average glucose result to permit better patient understanding of their HBA1c result. Performed By: #### C RP, ALCB, SED, GLYHGB, TROPI, MARCIO, CK, CDP, BH, BMPX ####[facility] [address] [place], [place] [id number] Lab Director: Ramiro Mark MD HbA1c (Bld) [Mass fraction] 12.0 % High 4.0-6.0 [facility] Comment on above: Performed By: #### C RP, ALCB, SED, GLYHGB, TROPI, MARCIO, CK, CDP, BH, BMPX ####[facility] [address] [place], [place] [id number] [facility] Director: Ramiro Mark MD Lactic Acidon 01-19-2024 Lactic Acid, Whole Blood 1.2 mmol/L 0.7 - 2.1 mmol/L [facility] Lactic Acid,Whole Bl 1.2 mmol/L Normal 0.7-2.1 [facility] Comment on above: Performed By: #### L ACTIC ####[address] [place], [place] [id number] lab Director: Ramiro Mark MD Lactate (BldV) [Moles/Vol] 2.2 mmol/L 0.5 - 2.2 mmol/L [facility] Lactate [Moles/Vol] 2.2 mmol/L Normal 0.5-2.2 [facility] Comment on above: Performed By: #### L ACTIC #### [facility] [address] [place] [address] Blow Machine Tender Starch Spraying: Ramiro Santillan MD MR Brain WO and W contrast I Von 01-19-2024 [facility] R[facility] CONSOL[facility] Radiology Study observation (narrative) [facility] MR Brain WO and W contrast I VOrdered By: Daniel Ramos on 01-19-2024 [facility] Work Phone: MRI BRAIN W WO CONTRASTon MRI BRAIN W WO CONTRAST [facility] MRSA DNA Probe, Nasalon - MRSA, DNA, Nasal Negative NEGATIVE [facility] Specimen Description .NASAL SWAB [facility] MRSA, DNA, Nasalon MRSA, DNA, Nasal Negative Normal NEG [facility] Comment on above: Result Comment: NEGA TIVE: MRSA DNA not detected by nucleic acid amplification.Results should be used as an adjunct to nosocomial control efforts to identify patients needing enhanced precautions.The test is not intended to identify patients with staphylococcal infections. Results should not be used to guide or monitor treatment for MRSA infections. Performed By: #### M RSANO ####[employer] [place] [address] Lab Director: Ramiro Mark MD Specimen Description .NASAL SWAB Normal [facility] Comment on above: Performed By: #### M RSANO ####[facility] [address] [place] [address] Lab Director: Ramiro Mark MD Magnesiumon 01-19-2024 Magnesium [Mass/Vol] 2.1 mg/dL 1.6 - 2 .6 mg/dL [facility] Magnesium [Mass/Vol] 2.1 mg/dL Normal 1.6-2.6 [facility] Comment on above: Performed By: #### M G, BMP, CHELO ####[employer] [address] [place], [place] [id number] Lab Director: Raimro Mark MD Magnesium [Mass/Vol] 2.0 mg/dL 1.6 - 2 .6 mg/dL [facility] Magnesium [Mass/Vol] 2.0 mg/dL Normal 1.6-2.6 [facility] Comment on above: Performed By: #### P TT, CHELO, PRCAL, MG, BMP, PT ####[employer] [place], [place] [id number] Lab Director: Ramiro Mark MD Meningitis Encephalitis Pane l CSF, Molecularon 01-19-2024 C. gattii+neoformans DNA MEETA+non-probe Ql (CSF) Not detected Not Detected [facility] CMV DNA MEETA+non-probe Ql (CSF) Not detected Not Detected [facility] E. coli K1 DNA MEETA+non-probe Ql (CSF) Not detected Not Detected [facility] Enterovirus RNA MEETA+non-probe Ql (CSF) Not detected Not Detected [facility] H. influenzae DNA MEETA+non-probe Ql (CSF) Not detected Not Detected [facility] HHV 6 DNA MEETA+non-probe Ql (CSF) Not detected Not Detected [facility] HSV 1 DNA MEETA+non-probe Ql (CSF) Not detected Not Detected [facility] HSV 2 DNA MEETA+non-probe Ql (CSF) Not detected Not Detected [facility] L. monocytogenes DNA MEETA+non-probe Ql (CSF) Not detected Not Detected [facility] N. meningitidis DNA MEETA+non-probe Ql (CSF) Not detected Not Detected [facility] Parechovirus A RNA MEETA+non-probe Ql (CSF) Not detected Not Detected [facility] S. agalactiae DNA MEETA+non-probe Ql (CSF) Not detected Not Detected [facility] S. pneumoniae DNA MEETA+non-probe Ql (CSF) Not detected Not Detected [facility] Specimen Description .CSF [facility] VZV DNA MEETA+non-probe Ql (CSF) Not detected Not Detected [facility] Meningitis Panelon C. neoformans/gattii Not detected Normal NOTDET [facility] Comment on above: Result Comment: Perf ormed by multiplexed nucleic acid assay. Performed By: #### C TP, CGLU, MEVP, CFVD, CFCNT ####[employer] [place], [place] [id number] lab Director: Ramiro Mark MD#### [place], ALYMCT ####[facility] [address] [place] [address] [phone] lab Director: Wil Swanson MD Cytomegalovirus Not detected Normal [facility] Comment on above: Performed By: #### C TP, CGLU, MEVP, CFVD, CFCNT ####[facility] [address] [place] [address] [phone] Lab Director: Ramiro Mark MD#### [place], ALYMCT ####[facility] [address] [place] [address] [phone] lab Director: Wil Swanson MD Enterovirus Not detected Normal [facility] Comment on above: Performed By: #### C TP, CGLU, MEVP, CFVD, CFCNT ####[facility] [address] [place] [address] lab Director: Ramiro Mark MD#### [place], ALYMCT ####[facility] [address] [place] [address] Lab Director: Wil Swanson MD Escherichia coli K1 Not detected Normal [facility] Comment on above: Performed By: #### C TP, CGLU, MEVP, CFVD, CFCNT ####[facility] [address] [place] [address] [phone] Lab Director: Ramiro Mark MD#### [place], ALYMCT ####[facility] [address] [place] [address] [phone] Lab Director: Wil Swanson MD Haemoph. influenzae Not detected Normal [facility] Comment on above: Performed By: #### C TP, CGLU, MEVP, CFVD, CFCNT ####[facility] [address] [place] [address] Lab Director: Ramiro Mark MD#### [place], ALYMCT ####[facility] [address] [place] [address] [phone] Lab Director: Wil Swanson MD HSV-1 Not detected Normal [facility] Comment on above: Performed By: #### C TP, CGLU, MEVP, CFVD, CFCNT ####[address] [address] Lab Director: Ramiro Mark MD#### [place] ALYMCT ####[facility] [address] [place] [address] [id number] Lab Director: Wil Swanson MD HSV-2 Not detected [facility] Comment on above: Performed By: #### C TP, CGLU, MEVP, CFVD, CFCNT ####[address] [address] Lab Director: Ramiro Mark MD#### CHESTER ALYMCT ####[facility] [address] [place] [address] [phone] Lab Director: Wil Swanson MD Human herpesvirus 6 Not detected Normal [facility] Comment on above: Performed By: #### C TP, CGLU, MEVP, CFVD, CFCNT ####[facility] [address] [place] [address] Lab Director: Ramiro Mark MD#### CHESTER, ALYMCT ####[facility] [address] [place] [address] [phone] Lab Director: Wil Swanson MD Human parechovirus Not detected Normal [facility] Comment on above: Performed By: #### C TP, CGLU, MEVP, CFVD, CFCNT ####[facility] Ugczmkfnmfxe3776 [place] [address] Lab Director: Ramiro Mark MD#### ARTUR BRIGGSYMCT ####[facility] [address] [place] [address] Lab Director: Wil Swanson MD List. monocytogenes Not detected Normal [facility] Comment on above: Performed By: #### C TP, CGLU, MEVP, CFVD, CFCNT ####[facility] [address] [place] [address] Lab Director: Ramiro Mark MD#### ARTUR BRIGGSYMCT ####[facility] [address] [place] [address] Lab Director: Wil Swanson MD Neis. meningitidis Not detected Normal [facility] Comment on above: Performed By: #### C TP, CGLU, MEVP, CFVD, CFCNT ####[facility] [address] [place] [address] Lab Director: Ramiro Mark MD#### ARTUR BRIGGSYMCT ####[facility] [address] [place] [address] [phone] Lab Director: Wil Swanson MD Strep. agalactiae Not detected Normal [facility] Comment on above: Performed By: #### C TP, CGLU, MEVP, CFVD, CFCNT ####[facility] [address] [place] [address] Lab Director: Ramiro Mark MD#### CHESTER ALYMCT ####[facility] [address] [place] [address] Lab Director: Wil Swanson MD Strep. pneumoniae Not detected Normal [facility] Comment on above: Performed By: #### C TP, CGLU, MEVP, CFVD, CFCNT ####[facility] Ptrlsgnymhpp4214 [place] [address] Lab Director: Ramiro Mark MD#### CHESTER, ALYMCT ####[facility] [address] [place] [address] [phone] Lab Director: Wil Swanson MD Varicella-zoster Not detected Normal [facility] Comment on above: Performed By: #### C TP, CGLU, MEVP, CFVD, CFCNT ####[facility] Az[address] [place] [address] Lab Director: Ramiro Mark MD#### CHE[place], ARTURYMCT ####[facility] [address]tjp[address] [place] [address] [phone] lab Director: Wil Swanson MD Source: .CSF [facility] Comment on above: Performed By: #### C TP, CGLU, MEVP, CFVD, CFCNT ####[address] [address] Lab Director: Ramiro Mark MD#### CHESTER, ALYMCT ####[facility] D[address]fdmaokkf[address] [place] [address] [phone] lab Director: Wil Swanson MD Myoglobinon 01-19-2024 Myoglobin [Mass/Vol] 166 ng/mL High 28-72 [facility] Comment on above: Performed By: #### C RP, ALCB, SED, GLYHGB, TROPI, MARCIO, CK, CDP, BH, BMPX ####[facility] [address] [place] [address] Lab Director: Ramiro Mark MD Myoglobin, Bloodon Myoglobin [Mass/Vol] 166 ng/mL High 28 - 72 ng/mL [facility] No Panel Informationon 01-18 [facility] Interpretation and review of laboratory results Abnormal [facility] Interpretation and review of laboratory results Abnormal [facility] Interpretation and review of laboratory results Abnormal [facility] Radiology Study observation (narrative) [facility] Interpretation and review of laboratory results Abnormal [facility] POC Glucose Fingerstickon Glucose [Mass/Vol] 77 mg/dL 75 - 110 mg/dL [facility] Glucose [Mass/Vol] 111 mg/dL High 75 - 110 mg/dL [facility] Interpretation and review of laboratory results Abnormal [facility] Glucose [Mass/Vol] 179 mg/dL High 75 - 110 mg/dL [facility] Interpretation and review of laboratory results Abnormal [facility] Glucose [Mass/Vol] 257 mg/dL High 75 - 110 mg/dL [facility] Interpretation and review of laboratory results Abnormal [facility] Glucose [Mass/Vol] 255 mg/dL High 75 - 110 mg/dL [facility] Interpretation and review of laboratory results Abnormal [facility] Glucose [Mass/Vol] 235 mg/dL High 75 - 110 mg/dL [facility] Interpretation and review of laboratory results Abnormal [facility] Glucose [Mass/Vol] 178 mg/dL High 75 - 110 mg/dL [facility] Interpretation and review of laboratory results Abnormal [facility] Glucose [Mass/Vol] 190 mg/dL High 75 - 110 mg/dL [facility] Interpretation and review of laboratory results Abnormal [facility] Glucose [Mass/Vol] 235 mg/dL High 75 - 110 mg/dL [facility] Interpretation and review of laboratory results Abnormal [facility] Glucose [Mass/Vol] 269 mg/dL High 75 - 110 mg/dL [facility] Interpretation and review of laboratory results Abnormal [facility] Glucose [Mass/Vol] 303 mg/dL High 75 - 110 mg/dL [facility] Interpretation and review of laboratory results Abnormal [facility] Glucose [Mass/Vol] 297 mg/dL High 75 - 110 mg/dL [facility] Interpretation and review of laboratory results Abnormal [facility] Glucose [Mass/Vol] 496 mg/dL Critically high 75 - 1 10 mg/dL [facility] Glucose [Mass/Vol] 375 mg/dL High 75 - 110 mg/dL [facility] Glucose [Mass/Vol] 548 mg/dL Critically high 75 - 1 10 mg/dL [facility] Interpretation and review of laboratory results Abnormal [facility] Glucose [Mass/Vol] 506 mg/dL Critically high 75 - 1 10 mg/dL [facility] Interpretation and review of laboratory results Abnormal [facility] POCT Glucoseon 01-19-2024 Glucose [Mass/Vol] 199 mg/dL High 74 - 100 mg/dL [facility] PTon 01-19-2024 INR Coag (PPP) [Relative time] 1.1 {INR} [facility] Comment on above: Result Comment: Ther apeutic Range: Moderate Anticoagulant Intensity: INR = 2.0-3.0 High Anticoagulant Intensity: INR = 2.5-3.5 Performed By: #### P TT, CHELO, PRCAL, MG, BMP, PT ####[facility] [address] [place], [place] [phone] Lab Director: Ramiro Mark MD PT Coag (PPP) [Time] 13.8 s Normal 11.7-14.9 [facility] Comment on above: Performed By: #### P TT, CHELO, PRCAL, MG, BMP, PT ####[facility] [address] [place], [place] [phone] Lab Director: Ramiro Mark MD Phosphoruson 01-19-2024 Phosphate [Mass/Vol] 3.8 mg/dL 2.5 - 4 .5 mg/dL [facility] Phosphate [Mass/Vol] 2.6 mg/dL 2.5 - 4 .5 mg/dL [facility] Phosphorus, Inorg.on 024 Phosphorus, Inorg. 3.8 mg/dL Normal 2.5-4.5 [facility] Comment on above: Performed By: #### M G, BMP, CHELO ####[facility] [address] [place], [place] [phone] Lab Director: Ramiro Mark MD Phosphorus, Inorg. 2.6 mg/dL Normal 2.5-4.5 [facility] Comment on above: Performed By: #### P TT, CHELO, PRCAL, MG, BMP, PT ####[facility] [address]razes[address] [place], [place] [phone] lab Director: Ramiro Mark MD Portable XR Chest AP single viewon 01-19-2024 MHPN RIS CONSOLIDATED MHPN RIS CONSOLIDATED [facility] MHPN RIS CONSOLIDATED MHPN RIS CONSOLIDATED [facility] Portable XR Chest AP single viewOrdered By: Sreedhar Mims on 01-19-2024 [facility] Work Phone: Portable XR Chest AP single viewOrdered By: Felix Adams on 01-19-2024 [facility] Work Phone: Procalcitoninon 01-19-2024 Interpretation and review of laboratory results Abnormal [facility] Procalcitonin [Mass/Vol] 0.15 ng/mL High 0.00 - 0.09 ng/mL [facility] Procalcitonin 0.15 ng/mL High 0.00-0.09 [facility] Comment on above: Result Comment: Susp ected Sepsis:<0.50 ng/mL Low likelihood of sepsis.0.50-2.00 ng/mL Increased likelihood of sepsis. Antibiotics encouraged.>2.00 ng/mL High risk of sepsis/shock. Antibiotics strongly encouraged.Suspected Lower Resp Tract Infections:<0.24 ng/mL Low likelihood of bacterial infection.>0.24 ng/mL Increased likelihood of bacterial infection. Antibiotics encouraged.With successful antibiotic therapy, PCT levels should decrease rapidly. (Half-life of 24 to 36 hours.)Procalcitonin values from samples collected within the first 6 hours of systemic infection may still be low. Retesting may be indicated.Values from day 1 and day 4 can be entered into the Change in Procalcitonin Calculator (www.vcryqc-wzx-bugiermkhq.com) to determine the patient's Mortality Risk PrognosisIn healthy neonates, plasma Procalcitonin (PCT) concentrations increase gradually after , reaching peak values at about 24 hours of age then decrease to normal values below 0.5 ng/mL by 48-72 hours of age. Performed By: #### P TT, CHELO, PRCAL, MG, BMP, PT ####[employer] [place], [place] [phone] Lab Director: Ramiro Mark MD Protein, CSFon 01-19-2024 Protein (CSF) [Mass/Vol] 89.1 mg/dL High 15.0 - 45.0 mg/dL [facility] [employer] [facility] Protein, Total, [facility] 2023 Total Protein - CSF 89.1 mg/dL High 15.0-45.0 [facility] Comment on above: Performed By: #### C TP, CGLU, MEVP, CFVD, CFCNT ####[employer] [address] [place] [id number] Lab Director: Ramiro Mark MD#### AWNCSF, ALYMCT ####[facility] [address] [place] [address] Lab Director: Wil Swanson MD Protime-INRon 01-19-2024 INR Coag (PPP) [Relative time] 1.1 {INR} [facility] PT Coag (PPP) [Time] 13.8 s [facility] Resp Viral Panelon 4 Adenovirus Not detected Normal [facility] Comment on above: Performed By: #### R [employer] TE[employer] WATER ####[address] [phone] Director: MD Lakesha Moreno.parapertussis Not detected [facility] Comment on above: Performed By: #### R [employer] TE[employer] WATER ####[address] [phone] Director: Ramiro Mark MD Bordetella pertussis Not detected [facility] Comment on above: Performed By: #### R [employer] TE[employer] WATER ####[address] [phone] Director: Ramiro Mark MD Chlamyd.pneumoniae Not detected Normal [facility] Comment on above: Performed By: #### R [employer] TE[employer] WATER ####[address] [phone] Director: Ramiro Mark MD Coronavirus 229E Not detected Normal [facility] Comment on above: Performed By: #### R [employer] WATER ####[address] [phone] Director: Ramiro Mark MD Coronavirus HKU1 Not detected Normal [facility] Comment on above: Performed By: #### R [employer] WATER ####[address] [phone] Director: Ramiro Mark MD Coronavirus NL63 Not detected Normal [facility] Comment on above: Performed By: #### R [employer] WATER ####[address] [phone] Director: Ramiro Mark MD Coronavirus OC43 Not detected Normal [facility] Comment on above: Performed By: #### R [employer] TESTER WATER ####[address] [place] [address] Lab Director: Ramiro Mark MD Human Metapneumo Not detected Normal [facility] Comment on above: Performed By: #### R [employer] TE[employer] WATER ####[facility] [address] [place] [address] Lab Director: Ramiro Mark MD Influenza A Not detected Normal [facility] Comment on above: Performed By: #### R [employer] TE[employer]ATER ####[address] [address] Lab Director: Ramiro Mark MD Influenza B Not detected Normal [facility] Comment on above: Performed By: #### R [employer] TE[employer] WATER ####[address] [phone] Director: Ramiro Mark MD Mycoplas.pneumoniae Not detected Normal [facility] Comment on above: Result Comment: Perf ormed by multiplexed nucleic acid assay. Performed By: #### R [employer] WATER ####[address] [address] Lab Director: Ramiro Mark MD Parainfluenza 1 Not detected Normal [facility] Comment on above: Performed By: #### R [employer] TE[employer] WATER ####[address] [address] Lab Director: Ramiro Mark MD Parainfluenza 2 Not detected Normal [facility] Comment on above: Performed By: #### R [employer] TE[employer] WATER ####[place] [address] [place] [address] Lab Director: Ramiro Mark MD Parainfluenza 3 Not detected [facility] Comment on above: Performed By: #### R [employer] TE[employer] WATER ####[address] [address] Lab Director: Ramiro Mark MD Parainfluenza 4 Not detected Normal [facility] Comment on above: Performed By: #### R [employer] TESTER WATER ####[facility] Nmt[address] [place], [place] [phone] Director: Ramiro Mark MD Resp Syncytial Virus Not detected Normal [facility] Comment on above: Performed By: #### R [employer] TE[employer] WATER ####[place] [address] [place], [place] [phone])[phone] Director: Ramiro Mark MD Rhino/Enterovirus Not detected Normal [facility] Comment on above: Performed By: #### [employer] ####[address] [phone] Director: Ramiro Mark MD SARS-CoV-2 (COVID-19) RNA MEETA+probe Ql (Unsp spec) Not detected Normal [facility] Comment on above: Performed By: #### [employer] ####[address] [phone] Director: Ramiro Mark MD Source: .NASOPHARYNGEAL SWAB Normal [facility] Comment on above: Performed By: #### R [employer] ####[address] [phone] Director: Ramiro Mark MD Respiratory Panel, Molecular , with COVID-19 (Restricted: peds pts or suitable admitted adults)on 01-19-2024 Adenovirus DNA MEETA+non-probe Ql (Nph) Not detected Not Detected [facility] B. parapertussis [id number] DNA MEETA+non-probe Ql (Nph) Not detected Not Detected [facility] B. pertussis DNA MEETA+probe Ql (Unsp spec) Not detected Not Detected [facility] C. pneumoniae DNA MEETA+non-probe Ql (Nph) Not detected Not Detected [facility] FLUAV RNA MEETA+non-probe Ql (Nph) Not detected Not Detected [facility] FLUBV RNA MEETA+non-probe Ql (Nph) Not detected Not Detected [facility] HCoV 229E RNA MEETA+non-probe Ql (Nph) Not detected Not Detected [facility] HCoV HKU1 RNA MEETA+non-probe Ql (Nph) Not detected Not Detected [facility] HCoV NL63 RNA MEETA+non-probe Ql (Nph) Not detected Not Detected [facility] HCoV OC43 RNA MEETA+non-probe Ql (Nph) Not detected Not Detected [facility] hMPV RNA MEETA+non-probe Ql (Nph) Not detected Not Detected [facility] M. pneumoniae DNA MEETA+non-probe Ql (Nph) Not detected Not Detected [facility] Parainfluenza virus 1 RNA MEETA+non-probe Ql (Nph) Not detected Not Detected [facility] Parainfluenza virus 2 RNA MEETA+non-probe Ql (Nph) Not detected Not Detected [facility] Parainfluenza virus 3 RNA MEETA+non-probe Ql (Nph) Not detected Not Detected [facility] Parainfluenza virus 4 RNA MEETA+non-probe Ql (Nph) Not detected Not Detected [facility] Rhinovirus+Enterovirus RNA MEETA+non-probe Ql (Nph) Not detected Not Detected [facility] RSV RNA MEETA+non-probe Ql (Nph) Not detected Not Detected [facility] SARS-CoV-2 (COVID-19) RNA MEETA+non-probe Ql (Nph) Not detected Not Detected [facility] Specimen Description .NASOPHARYNGEAL SWAB [facility] Sedimentation Rateon 024 ESR Photometric method (Bld) [Velocity] 28 High [facility] Interpretation and review of laboratory results Abnormal [facility] Sedimentation Rate 28 mm/Hr High 0-20 [facility] Comment on above: Result Comment: ADDE D ON Performed By: #### C RP, ALCB, SED, GLYHGB, TROPI, MARCIO, CK, CDP, BH, BMPX ####[facility] [address] [place], [place] [id number] Lab Director: Ramiro Mark MD Surgical Pathology Reporton 01-19-2024 Surgical Pathology Report [facility] TSH w/reflex to FT4on 2023 Thyroid Stim. Horm. 0.58 uIU/mL Normal 0.27-4.20 [facility] Comment on above: Performed By: #### T SHX, JHON ####[facility] [address] [place], [place] [id number] Lab Director: Ramiro Mark MD TSH with Reflexon 01-19-2024 TSH Qn 0.58 m[IU]/L [facility] Troponinon 01-19-2024 Troponin I.cardiac High sensitivity method [Mass/Vol] 39 ng/L High 0 - 22 ng/L [facility] Troponin, High Sens 39 ng/L High 0-22 [facility] Comment on above: Result Comment: High Sensitivity Troponin values cannot be compared with other Troponin methodologies. Performed By: #### C RP, ALCB, SED, GLYHGB, TROPI, MARCIO, CK, CDP, BH, BMPX ####[facility] [address] [place], [place] [phone] lab Director: Ramiro Mark MD Interpretation and review of laboratory results Abnormal [facility] Troponin I.cardiac High sensitivity method [Mass/Vol] 45 ng/L High 0 - 22 ng/L [facility] Comment on above: High Sensitivity Tro ponin values cannot be compared with other Troponin methodologies. [facility] Troponin, High Sens 45 ng/L High 0-22 [facility] Comment on above: Result Comment: High Sensitivity Troponin values cannot be compared with other Troponin methodologies. Performed By: #### B H #### [facility] [address] [place] [address] Blow Machine Tender Starch Spraying: Ramiro Santilaln MD Urinalysis w/ Microon 2023 Bacteria None Normal NONE [facility] Comment on above: Performed By: #### U AMIC ####[address] [phone] Director: Ramiro Mark MD Bilirubin, SemiQt,Ur Negative Normal NEG [facility] Comment on above: Performed By: #### U AMIC ####[address] [phone] Director: Ramiro Mark MD Blood, Urine SMALL Abnormal NEG [facility] Comment on above: Performed By: #### U AMIC ####[address] [phone] Director: Ramiro Mark MD Casts 2 TO 5 HYALINE Normal 0-8 [facility] Comment on above: Result Comment: Refe rence range defined for non-centrifuged specimen. Performed By: #### U AMIC ####[address] [phone] Director: Ramiro Mark MD Clarity (U) Clear Normal CLEAR [facility] Comment on above: Performed By: #### U AMIC ####[address] [phone] Director: Ramiro Mark MD Color (U) Yellow Normal YEL [facility] Comment on above: Performed By: #### U AMIC ####[address] [phone] Director: Ramiro Mark MD Epithelial cells LM Ql (Urine sed) 2 TO 5 Normal 0-5 [facility] Comment on above: Performed By: #### U AMIC ####[address] [phone] Director: Ramiro Mark MD Glucose Ql (U) 3+ mg/dL Abnormal NEG [facility] Comment on above: Performed By: #### U AMIC ####[facility] Qj[address] [place], [place] [phone] Director: Ramiro Mark MD Ketones Ql (U) MODERATE Abnormal NEG [facility] Comment on above: Performed By: #### U AMIC ####[address] [phone] Director: Ramiro Mark MD Leukocyte esterase Test strip Ql (U) Negative Normal NEG [facility] Comment on above: Performed By: #### U AMIC ####[address] [address])[phone] Director: Ramiro Mark MD Nitrite,Ur Negative Normal NEG [facility] Comment on above: Performed By: #### U AMIC ####[address] [address])[phone] Director: Ramiro Mark MD PH,Ur 5.5 Normal 5.0-8.0 [facility] Comment on above: Performed By: #### U AMIC ####[address] [phone] Director: Ramiro Mark MD Protein Ql (U) 3+ mg/dL Abnormal NEG [facility] Comment on above: Performed By: #### U AMIC ####[address] [address])[phone] Director: Ramiro Mark MD Spec. [place],Ur 1.033 High 1.005-1.030 [facility] Comment on above: Performed By: #### U AMIC ####[address] [phone] Director: Ramiro Mark MD Urine RBC's 5 TO 10 Normal 0-4 [facility] Comment on above: Result Comment: Refe rence range defined for non-centrifuged specimen. Performed By: #### U AMIC ####[facility] [address] [place] [address] Lab Director: Ramiro Mark MD Urine WBC's 2 TO 5 Normal 0-5 [facility] Comment on above: Performed By: #### U AMIC ####[facility] [address] [place], [place] [phone] lab Director: Ramiro Mark MD Urobilinogen,Ur Normal Normal 0.0-1.0 [facility] Comment on above: Performed By: #### U AMIC ####[facility] [address]flc[address] [place], [place] [phone] lab Director: Ramiro Mark MD Urinalysis with Microscopico n 01-19-2024 Bacteria LM Ql (Urine sed) None None [facility] [facility] Bilirubin Ql (U) Negative NEGATIVE [facility] [employer] Casts LM.LPF (Urine sed) [#/Area] 2 TO 5 HYALINE Reference range defined for non-centrifuged specimen. cloud[employer] [facility] Clarity (U) Clear Clear [facility] [employer] [facility] Color (U) Yellow Yellow [facility] Epithelial cells LM.HPF (Urine sed) [#/Area] 2 TO 5 [facility] Glucose Test strip (U) [Mass/Vol] 3+ Abnormal NEGATIVE mg/dL [facility] Hemoglobin Auto test strip Ql (U) SMALL Abnormal NEGATIVE [facility] Interpretation and review of laboratory results Abnormal [facility] Ketones (U) [Mass/Vol] MODERATE Abnormal NEGAT RAJAN mg/dL [facility] Leukocyte esterase Test strip Ql (U) Negative NEGATIVE [facility] Nitrite Ql (U) Negative NEGATIVE [facility] pH (U) 5.5 [pH] 5.0 - 8.0 [facility] Protein (U) [Mass/Vol] 3+ Abnormal NEGAT RAJAN mg/dL [facility] RBC LM.HPF (Urine sed) [#/Area] 5 TO 10 [facility] Specific gravity (U) [Rel density] 1.033 High 1.005 - 1.030 [facility] Urobilinogen Qn (U) Normal 0.0 - 1. 0 EU/dL [facility] WBC LM.HPF (Urine sed) [#/Area] 2 TO 5 [facility] XR ABDOMEN FOR NG/OG/NE TUBE PLACEMENTon 01-19-2024 XR ABDOMEN FOR NG/OG/NE TUBE PLACEMENT Normal [facility] MHPN RIS CONSOLIDATED MHPN RIS CONSOLIDATED [facility] XR CHEST PORTABLEon 01-19-20 XR CHEST PORTABLE Normal [facility] XR CHEST PORTABLE Normal [facility] BMPon 01-18-2024 Anion gap [Moles/Vol] 14 mmol/L 9 - 17 mmol/L [facility] Calcium [Mass/Vol] 9.3 mg/dL 8.6 - 10. 4 mg/dL [facility] Chloride [Moles/Vol] 95 mmol/L Low 98 - 10 7 mmol/L [facility] CO2 [Moles/Vol] 22 mmol/L 20 - 31 mmol/L [facility] Creatinine [Mass/Vol] 1.7 mg/dL High 0.7 - 1.2 mg/dL [facility] GFR/1.73 sq M.predicted MDRD (S/P/Bld) [Vol rate/Area] 49 mL/min/{1.73_m2} Low - PINF [facility] Comment on above: These results are not [...] 242 mg/dL High 70 - 99 mg/dL [facility] Potassium [Moles/Vol] 4.7 mmol/L 3.7 - 5.3 mmol/L [facility] Sodium [Moles/Vol] 131 mmol/L Low 135 - 144 mmol/L [facility] Urea nitrogen [Mass/Vol] 44 mg/dL High 6 - 20 mg/dL [facility] Urea nitrogen/Creatinine [Mass ratio] 26 mg/mg High 9 - 20 [facility] Basic Metabolic Profon 01-17 Anion gap [Moles/Vol] 14 mmol/L Normal 9-17 [facility] Comment on above: Performed By: #### L ACTIC #### [facility] [address] [place], [place] [id number] [employer]: Ramiro Santillan MD BUN/CRE Ratio 26 High 9-20 [facility] Comment on above: Performed By: #### L ACTIC #### [facility] [address] [place], [place] [phone] [employer]: Ramiro Santillan MD Calcium [Mass/Vol] 9.3 mg/dL Normal 8.6-10.4 [facility] Comment on above: Performed By: #### L ACTIC #### [facility] [address] [place], [place] [phone] [employer]: Ramiro Santillan MD Chloride [Moles/Vol] 95 mmol/L Low 98-107 [facility] Comment on above: Performed By: #### L ACTIC #### [facility] [address] [place], [place] [phone] [employer]: Ramiro Santillan MD CO2 [Moles/Vol] 22 mmol/L Normal 20-31 [facility] Comment on above: Performed By: #### L ACTIC #### [facility] [address] [place] [address] [employer]: Ramiro Santillan MD Creatinine [Mass/Vol] 1.7 mg/dL High 0.7-1.2 [facility] Comment on above: Performed By: #### L ACTIC #### [facility] [address] [place] [address] [employer]: Ramiro Santillan MD GFR/1.73 sq M.predicted among non-blacks MDRD (S/P/Bld) [Vol rate/Area] 49 mL/min/{1.73_m2} Low >60 [facility] Comment on above: Result Comment: These [...] affects renal tubular secretion. Performed By: #### L ACTIC #### [facility] [address] [place] [address] [place] [address] [employer]: Ramiro Santillan MD Glucose [Mass/Vol] 242 mg/dL High 70-99 [facility] Comment on above: Performed By: #### L ACTIC #### [facility] [address] [place] [address] [place] [place], [place] [phone] [employer]: Ramiro Santillan MD Potassium [Moles/Vol] 4.7 mmol/L Normal 3.7-5.3 [facility] Comment on above: Performed By: #### L ACTIC #### [facility] [address] [place] [address] [place] [place], [place] [phone] [employer]: Ramiro Santillan MD Sodium [Moles/Vol] 131 mmol/L Low 135-144 [facility] Comment on above: Performed By: #### L ACTIC #### [facility] [address] [place] [address] [place] [address] [employer]: Ramiro Santillan MD Urea nitrogen [Mass/Vol] 44 mg/dL High 6-20 [facility] Comment on above: Performed By: #### L ACTIC #### [facility] [address] [place] [address] [place] [address] [employer]: Ramiro Santillan MD CBC with Auto Differentialon 01-18-2024 Basophils (Bld) [#/Vol] 0.06 10*3/uL [facility] Basophils/100 WBC (Bld) 1 % 0 - 2 % [facility] Eosinophils (Bld) [#/Vol] 0.17 10*3/uL [facility] Eosinophils/100 WBC (Bld) 2 % 1 - 4 % [facility] Erythrocyte distribution width (RBC) [Ratio] 13.4 % 11.8 - 14.4 % [facility] Hematocrit (Bld) [Volume fraction] 36.5 % Low 40.7 - 50.3 % [facility] Hemoglobin (Bld) [Mass/Vol] 13.0 g/dL 13.0 - 17.0 g/dL [facility] Immature granulocytes (Bld) [#/Vol] 0.03 10*3/uL [facility] Immature granulocytes/100 WBC (Bld) 0 % 0 [facility] Interpretation and review of laboratory results Abnormal [facility] Lymphocytes/100 WBC (Bld) 23 % Low 24 - 43 % [facility] Lymphocytes/100 WBC (Bld) 1.95 % [facility] MCH (RBC) [Entitic mass] 29.6 pg 25.2 - 33.5 pg [facility] MCHC (RBC) [Mass/Vol] 35.6 g/dL High 28.4 - 34.8 g/dL [facility] MCV (RBC) [Entitic vol] 83.1 fL 82.6 - 102.9 fL [facility] Monocytes/100 WBC (Bld) 6 % 3 - 12 % [facility] Monocytes/100 WBC (Bld) 0.54 % [facility] Neutrophils/100 WBC (Bld) 68 % High 36 - 65 % [facility] Nucleated RBC/100 WBC (Bld) [Ratio] 0.0 % 0.0 per 100 WBC [facility] Platelet mean volume (Bld) [Entitic vol] 10.4 fL 8.1 - 13.5 fL [facility] Platelets (Bld) [#/Vol] 212 10*3/uL [facility] RBC (Bld) [#/Vol] 4.39 10*6/uL 4.21 - 5.7 7 m/uL [facility] Segmented neutrophils/100 WBC (Bld) 5.80 % [facility] WBC other (Bld) [#/Vol] 8.6 [facility] CBC with Diffon 01-18-2024 Abs. Basophil 0.06 k/uL Normal 0.00-0.20 [facility] Comment on above: Performed By: #### L ACTIC #### [facility] [address] [place], [place] [phone] [employer]: Ramiro Santillan MD Abs.Imm.Granulocyte 0.03 k/uL Normal 0.00-0.30 [facility] Comment on above: Performed By: #### L ACTIC #### [address] [place] [phone] [employer]: Ramiro Santillan MD Abs.Neutrophil (Seg) 5.80 k/uL Normal 1.50-8.10 [facility] Comment on above: Performed By: #### L ACTIC #### [address] [place], [place] [phone] [employer]: Ramiro Santillan MD Basophils/100 WBC (Bld) 1 % Normal 0-2 [facility] Comment on above: Performed By: #### L ACTIC #### [facility] [address] [place] [address] Dr. [place], [facility]83 [employer]: Ramiro aSntillan MD Eosinophils (Bld) [#/Vol] 0.17 10*3/uL Normal 0.00-0.44 [facility] Comment on above: Performed By: #### L ACTIC #### [facility] [address] [place] [address] [place] [address] [employer]: Ramiro Santillan MD Eosinophils/100 WBC (Bld) 2 % Normal 1-4 [facility] Comment on above: Performed By: #### L ACTIC #### [facility] [address] [place], [place] [phone] [employer]: Ramiro Santillan MD Erythrocyte distribution width (RBC) [Ratio] 13.4 % Normal 11.8-14.4 [facility] Comment on above: Performed By: #### L ACTIC #### [facility] [address] [place], [place] [phone] [employer]: Ramiro Santillan MD Hematocrit (Bld) [Volume fraction] 36.5 % Low 40.7-50.3 [facility] Comment on above: Performed By: #### L ACTIC #### [address] [place], [place] [phone] [employer]: Ramiro Santillan MD Hemoglobin (Bld) [Mass/Vol] 13.0 g/dL Normal 13.0-17.0 [facility] Comment on above: Performed By: #### L ACTIC #### [facility] [address] [place] [address] Dr. [place], [place] [phone] [employer]: Ramiro Santillan MD Immature granulocytes/100 WBC (Bld) 0 % Normal 0 [facility] Comment on above: Performed By: #### L ACTIC #### [facility] [address] [place] [address] [place]. [place], [place] [phone] [employer]: Ramiro Santillan MD Lymphocytes (Bld) [#/Vol] 1.95 10*3/uL Normal 1.10-3.70 [facility] Comment on above: Performed By: #### L ACTIC #### [facility] [address] [place] [address] Dr. [place], [place] [phone] [employer]: Ramiro Santillan MD Lymphocytes/100 WBC (Bld) 23 % Low 24-43 [facility] Comment on above: Performed By: #### L ACTIC #### [facility] [address] [place] [phone] [employer]: Ramiro Santillan MD MCH (RBC) [Entitic mass] 29.6 pg Normal 25.2-33.5 [facility] Comment on above: Performed By: #### L ACTIC #### [facility] [address] [place] [address] Dr. [place], [place] [phone] [employer]: Ramiro Santillan MD MCHC (RBC) [Mass/Vol] 35.6 g/dL High 28.4-34.8 [facility] Comment on above: Performed By: #### L ACTIC #### [address] [place] [phone] [employer]: Ramiro Santillan MD MCV (RBC) [Entitic vol] 83.1 fL Normal 82.6-102.9 [facility] Comment on above: Performed By: #### L ACTIC #### [facility] [address] [place] [address] Dr. [place], [facility]83 [employer]: Ramiro Santillan MD Monocytes (Bld) [#/Vol] 0.54 10*3/uL Normal 0.10-1.20 [facility] Comment on above: Performed By: #### L ACTIC #### [facility] [address] [place] [address] Dr. [place], [place] [phone] [employer]: Ramiro Santillan MD Monocytes/100 WBC (Bld) 6 % Normal 3-12 [facility] Comment on above: Performed By: #### L ACTIC #### [facility] [address] [place] [address] Dr. [place], [facility]83 [employer]: Ramiro Santillan MD Neutrophil (Seg) 68 % High 36-[address] [facility] Comment on above: Performed By: #### L ACTIC #### [facility] [address] [place] [address] [place], [place] [phone] [employer]: Ramiro Santillan MD NRBC Automated 0.0 per 100 WBC Normal 0.0 [facility] Comment on above: Performed By: #### L ACTIC #### [facility] [address] [place], [place] [phone] [employer]: Ramiro Santillan MD Platelet mean volume (Bld) [Entitic vol] 10.4 fL Normal 8.1-13.5 [facility] Comment on above: Performed By: #### L ACTIC #### [facility] [address] [place], [facility]83 [employer]: Ramiro Santillan MD Platelets (Bld) [#/Vol] 212 10*3/uL Normal 138-453 [facility] Comment on above: Performed By: #### L ACTIC #### [facility] [address] [place], [place] [phone] [employer]: Ramiro Santillan MD RBC (Bld) [#/Vol] 4.39 10*6/uL Normal 4.21-5.77 [facility] Comment on above: Performed By: #### L ACTIC #### [address] [place], [place] [phone] [employer]: Ramiro Santillan MD WBC (Bld) [#/Vol] 8.6 10*3/uL Normal 3.5-11.3 [facility] Comment on above: Performed By: #### L ACTIC #### [address] [place], [facility]83 [employer]: Ramiro Santillan MD CTA HEAD NECK W CONTRASTon 0 01-18-2024 CTA HEAD NECK W CONTRAST EXAMINATION: CTA [...] emergency medical condition->Emergency Medical Condition (MA) FINDINGS: CTA NECK: AORTIC [...] Daniel Ramos MD 01/18/24 Final result Normal [facility] CTA Head vessels and Neck ve ssels W contrast Karri 01-18-2024 1. No evidence of arterial stenosis or occlusion in the head or neck. 2. No acute intracranial abnormality. 3. Sphenoid sinus disease. [facility] RIS CONSOLIDATED EXAMINATION: CTA OF THE HEAD [...] emergency medical condition->Emergency Medical Condition (MA) FINDINGS: CTA NECK: AORTIC [...] fluid collection. The winkler-white differentiation is maintained. [facility] Daniel Trent MD - 01/18/2024 EXAMINATION: CTA OF THE [...] emergency medical condition->Emergency Medical Condition (MA) FINDINGS: CTA NECK: AORTIC [...] acute intracranial abnormality. 3. Sphenoid sinus disease. [facility] Radiology Study observation (narrative) [facility] CTA Head vessels and Neck ve ssels W contrast IVOrdered By: Daniel Ramos on 01-18-2024 [facility] Work Phone: Glucose, Whole Bloodon 01-17 Glucose [Mass/Vol] 232 mg/dL High 74 - 100 mg/dL [facility] Interpretation and review of laboratory results Abnormal [facility] Glucose [Mass/Vol] 232 mg/dL High 74-100 [facility] Glucose [Mass/Vol] 230 mg/dL High 74 - 100 mg/dL [facility] Interpretation and review of laboratory results Abnormal [facility] Glucose [Mass/Vol] 230 mg/dL High 74-100 [facility] Hepatic Function Panelon Albumin [Mass/Vol] 3.9 g/dL 3.5 - 5.2 g/dL [facility] Albumin/Globulin [Mass ratio] 1.3 {ratio} 1.0 - 2.5 [facility] ALP [Catalytic activity/Vol] 105 U/L 40 - 129 U/L [facility] ALT [Catalytic activity/Vol] 18 U/L 5 - 41 U/L [facility] AST [Catalytic activity/Vol] 16 U/L NINF - 40 U/L [facility] Bilirubin [Mass/Vol] 0.2 mg/dL Low 0.3 - 1 .2 mg/dL [facility] Bilirubin.direct [Mass/Vol] mg/dL NINF - 0.3 mg/dL [facility] Bilirubin.indirect [Mass/Vol] Can not be calculated 0.0 - 1.0 mg/dL [facility] Protein [Mass/Vol] 7.0 g/dL 6.4 - 8.3 g/dL [facility] Lactic Acidon 01-18-2024 Interpretation and review of laboratory results Abnormal [facility] Lactate (BldV) [Moles/Vol] 2.8 mmol/L High 0.5 - 2.2 mmol/L [facility] Lactate [Moles/Vol] 2.8 mmol/L High 0.5-2.2 [facility] Comment on above: Performed By: #### L ACTIC #### [facility] [address] [place] [address] [place] [address] [employer]: Ramiro Santillan MD Liver Profileon 01-18-2024 Albumin [Mass/Vol] 3.9 g/dL Normal 3.5-5.2 [facility] Comment on above: Performed By: #### L ACTIC #### [facility] [address] [place], [place] [phone] [employer]: Ramiro Santillan MD Albumin/Glob Ratio 1.3 Normal 1.0-2.5 [facility] Comment on above: Performed By: #### L ACTIC #### [facility] [address] [place] [address] [employer]: Ramiro Santillan MD Alkaline Phos 105 U/L Normal 40-129 [facility] Comment on above: Performed By: #### L ACTIC #### [facility] [address] [place], [place] [phone] [employer]: Ramiro Santillan MD ALT [Catalytic activity/Vol] 18 U/L Normal 5-41 [facility] Comment on above: Performed By: #### L ACTIC #### [facility] [address] [place], [place] [phone] [employer]: Ramiro Santillan MD AST [Catalytic activity/Vol] 16 U/L Normal <40 [facility] Comment on above: Performed By: #### L ACTIC #### [facility] [address] [place], [place] [phone] [employer]: Ramiro Santillan MD Bilirubin [Mass/Vol] 0.2 mg/dL Low 0.3-1.2 [facility] Comment on above: Performed By: #### L ACTIC #### [facility] [address] [place] [address] Dr. [place], [place] [phone] [employer]: Ramiro Santillan MD Bilirubin, Indirect Can not be calculated Normal 0.0-1 .0 [facility] Comment on above: Performed By: #### L ACTIC #### [facility] [address] [place], [place] [phone] [employer]: Ramiro Santillan MD Bilirubin.indirect [Mass/Vol] mg/dL Normal <0.3 [facility] Comment on above: Performed By: #### L ACTIC #### [facility] [address] [place], [place] [phone] [employer]: Ramiro Santillan MD Protein [Mass/Vol] 7.0 g/dL Normal 6.4-8.3 [facility] Comment on above: Performed By: #### L ACTIC #### [facility] [address] [place], [place] [phone] [employer]: Ramiro Santillan MD Magnesiumon 01-18-2024 Magnesium [Mass/Vol] 2.2 mg/dL 1.6 - 2 .6 mg/dL [facility] Magnesium [Mass/Vol] 2.2 mg/dL Normal 1.6-2.6 [facility] Comment on above: Performed By: #### L ACTIC #### [facility] [address] [place] [address] B[employer]: Ramiro Santillan MD No Panel Informationon 01-17 Interpretation and review of laboratory results Abnormal [facility] Troponinon 01-18-2024 Interpretation and review of laboratory results Abnormal [facility] Troponin I.cardiac High sensitivity method [Mass/Vol] 48 ng/L High 0 - 22 ng/L [facility] Comment on above: High Sensitivity Tro ponin values cannot be compared with other Troponin methodologies. [facility] Troponin, High Sens 48 ng/L High 0-22 [facility] Comment on above: Result Comment: High Sensitivity Troponin values cannot be compared with other Troponin methodologies. Performed By: #### L ACTIC #### [facility] [address] [place] [address] [employer]: Ramiro Santillan MD HSV 1,2 DNA PCRon 09-26-2023 HSV 1 DNA Negative [facility] Comment on above: Result Comment: Refe rence range: Negative Performed By: #### L HSV #### Testing performed at [facility] HSV 2 DNA Negative [facility] Comment on above: Result Comment: Refe rence range: Negative (NOTE) This test was developed and its performance characteristics determined by [employer]. It has not been cleared or approved by the U.[place]. Food and Drug Administration. The FDA has determined that such clearance or approval is not necessary. This test is used for clinical purposes. It should not be regarded as investigational or research. PERFORMED AT [facility] Performed By: #### L HSV #### Testing performed at [facility] CBCon 09-24-2023 ABSOLUTE BAS 0.0 10*3/uL Normal 0.0-0.2 [facility] ABSOLUTE EOS 0.1 10*3/uL Normal 0.0-0.7 [facility] ABSOLUTE NEUTROPHIL COUNT 12.9 10*3/uL High 1.4-6.5 [facility] Basophils/100 WBC (Bld) 0.1 % Normal 0.0-2.0 [facility] DTYPE AUTO DIFF Normal [facility] Eosinophils/100 WBC (Bld) 0.5 % Normal 0.0-11.0 [facility] Lymphocytes (Bld) [#/Vol] 1.0 10*3/uL Low 1.2-3.4 [facility] Lymphocytes/100 WBC (Bld) 6.3 % Low 20.0-55.0 [facility] Monocytes (Bld) [#/Vol] 1.2 10*3/uL High 0.0-0.7 [facility] Monocytes/100 WBC (Bld) 7.9 % Normal 0.0-10.0 [facility] Neutrophils/100 WBC (Bld) 85.2 % High 37.0-75.0 [facility] Erythrocyte distribution width (RBC) [Ratio] 14.2 % Normal 11.5-14.5 [facility] Hematocrit (Bld) [Volume fraction] 34.1 % Low 42.0-52.0 [facility] Hemoglobin (Bld) [Mass/Vol] 11.4 g/dL Low 14.0-18.0 [facility] MCH (RBC) [Entitic mass] 29.0 pg Normal 26.0-35.0 [facility] MCHC (RBC) [Mass/Vol] 33.4 g/dL Normal 27.0-37.0 [facility] MCV (RBC) [Entitic vol] 86.7 fL Normal 80.0-100.0 [facility] Platelet mean volume (Bld) [Entitic vol] 8.8 fL Normal 7.4-11.0 [facility] Platelets (Bld) [#/Vol] 161 10*3/uL Normal 130-400 [facility] RBC (Bld) [#/Vol] 3.94 10*6/uL Low 4.0-6.1 [facility] WBC (Bld) [#/Vol] 15.2 10*3/uL High 3.6-11.0 [facility] CBC, EDIF, PLATELETon 2022 ABSOLUTE BASOPHIL COUNT 0.0 10*3/uL 0.0 - 0.2 10*3/uL [facility] Basophils/100 WBC (Bld) 0.1 % 0.0 - 2.0 % [facility] Differential cell count method Nom (Bld) AUTO DIFF % [facility] Eosinophils (Bld) [#/Vol] 0.1 10*3/uL 0.0 - 0.7 10*3/uL [facility] Eosinophils/100 WBC (Bld) 0.5 % 0.0 - 11.0 % [facility] Erythrocyte distribution width (RBC) [Ratio] 14.2 % 11.5 - 14.5 % [facility] Hematocrit (Bld) [Volume fraction] 34.1 % Low 42.0 - 52.0 % [facility] Hemoglobin (Bld) [Mass/Vol] 11.4 g/dL Low [facility] Interpretation and review of laboratory results Abnormal [facility] Lymphocytes (Bld) [#/Vol] 1.0 10*3/uL Low 1.2 - 3.4 10*3/uL [facility] Lymphocytes/100 WBC (Bld) 6.3 % Low 20.0 - 55.0 % [facility] MCH (RBC) [Entitic mass] 29.0 pg 26.0 - 35.0 PG [facility] MCHC (RBC) [Mass/Vol] 33.4 g/dL [facility] MCV (RBC) [Entitic vol] 86.7 fL [facility] Monocytes (Bld) [#/Vol] 1.2 10*3/uL High 0.0 - 0.7 10*3/uL [facility] Monocytes/100 WBC (Bld) 7.9 % 0.0 - 10.0 % [facility] Neutrophils (Bld) [#/Vol] 12.9 10*3/uL High 1.4 - 6.5 10*3/uL [facility] Neutrophils/100 WBC (Bld) 85.2 % High 37.0 - 75.0 % [facility] Platelet mean volume (Bld) [Entitic vol] 8.8 fL [facility] Platelets (Bld) [#/Vol] 161 10*3/uL 130 - 400 10*3/uL [facility] RBC (Bld) [#/Vol] 3.94 10*6/uL Low 4.0 - 6.1 10*6/uL [facility] WBC (Bld) [#/Vol] 15.2 10*3/uL High 3.6 - 11.0 10*3/uL [facility] CKon 09-24-2023 CK [Catalytic activity/Vol] 631 U/L High [facility] CPKon 09-24-2023 CPK 631 IU/L High 55-170 [facility] GLUCOSE (POC DEVICE)on 09-24 GLUCOSE, POINT OF CARE 203 High [facility] Interpretation and review of laboratory results Abnormal [facility] Operator [id number] [facility] GLUCOSE, POINT OF CARE 183 High [facility] Interpretation and review of laboratory results Abnormal [facility] Operator [id number] [facility] GLUCOSE, POINT OF CARE [address] [facility] Interpretation and review of laboratory results Abnormal [facility] Operator [id number] [facility] GLUCOSE, POINT OF CARE [address] [facility] Interpretation and review of laboratory results Abnormal [facility] Operator [id number] [facility] MAGNESIUMon 09-24-2023 Magnesium [Mass/Vol] 2.0 mg/dL Normal 1.6-2.3 [facility] Magnesium [Mass/Vol] 2.0 mg/dL [facility] No Panel Informationon 09-24 Interpretation and review of laboratory results Abnormal [facility] POCT GLUCOSEon 09-24-2023 Glucose [Mass/Vol] 203 mg/dL High 70-100 [facility] PHLEBOTOMY TECHNICIAN [id number] Normal [facility] Glucose [Mass/Vol] 183 mg/dL High 70-100 [facility] PHLEBOTOMY TECHNICIAN [id number] Normal [facility] Glucose [Mass/Vol] 109 mg/dL High 70-100 [facility] PHLEBOTOMY TECHNICIAN [id number] Normal [facility] Glucose [Mass/Vol] 168 mg/dL High 70-100 [facility] PHLEBOTOMY TECHNICIAN [id number] Normal [facility] RENAL FUNCTION PANELon 09-24 Albumin [Mass/Vol] 3.2 G/dl Low 3.5 - 5.0 G/dl [facility] Calcium [Mass/Vol] 8.0 mg/dL Low [facility] Chloride [Moles/Vol] 111 mmol/L High [facility] Comment on above: Please note: Triglyc eride levels of 600mg/dL or higher may positively bias chloride results by approximately 2.1 mmol CO2 [Moles/Vol] 24 mmol/L [facility] Creatinine [Mass/Vol] 1.10 mg/dL [facility] GFR COMMENT Average GFR for 40-4 9 years old = 99. [facility] Comment on above: Chronic Kidney disea se, GFR = <60. Kidney failure, GFR = <15. The GFR estimate is not adjusted for extreme body surface area or acute process, nor has it been validated for women or ethnic groups other than and . GFR/1.73 sq M.predicted among blacks MDRD (S/P/Bld) [Vol rate/Area] 92 mL/min/{1.73_m2} ml/min/1.73s q.m [facility] GFR/1.73 sq M.predicted among non-blacks MDRD (S/P/Bld) [Vol rate/Area] 76 mL/min/{1.73_m2} ml/min/1.73s q.m [facility] Glucose post fast [Mass/Vol] 106 mg/dL High [facility] Comment on above: NORMAL <100 mg/dL PREDIABETES 101-126 mg/dL DIABETES 126 mg/dL or higher Phosphate [Mass/Vol] 2.9 mg/dL [facility] Potassium [Moles/Vol] 3.8 mmol/L [facility] Sodium [Moles/Vol] 138 mmol/L [facility] Urea nitrogen [Mass/Vol] 17 mg/dL [facility] RENAL PANEL,FASTINGon 2022 ALBUMIN 3.2 G/dl Low 3.5-5.0 [facility] Calcium [Mass/Vol] 8.0 mg/dL Low 8.4-10.2 [facility] Chloride [Moles/Vol] 111 mmol/L High 98-107 [facility] Comment on above: Result Comment: Juana spencer note: Triglyceride levels of 600mg/dL or higher may positively bias chloride results by approximately 2.1 mmol CO2 [Moles/Vol] 24 mmol/L Normal 22-[address] [facility] Creatinine [Mass/Vol] 1.10 mg/dL Normal 0.7-1.2 [facility] EST. GFR, 92 ml/min/1.73sq.m Normal [facility] EST. GFR,Non 76 ml/min/1.73sq.m Normal [facility] GFR Information Average GFR for 40-4 9 years old = 99. Normal [facility] Comment on above: Result Comment: [employer] alfreda Kidney disease, GFR = <60. Kidney failure, GFR = <15. The GFR estimate is not adjusted for extreme body surface area or acute process, nor has it been validated for women or ethnic groups other than and . Glucose [Mass/Vol] 106 mg/dL High 70-100 [facility] Comment on above: Result Comment: NORMAL <100 mg/dL PREDIABETES 101-126 mg/dL DIABETES 126 mg/dL or higher PHOSPHOROUS 2.9 MG/DL Normal 2.5-4.5 [facility] Potassium [Moles/Vol] 3.8 mmol/L Normal 3.5-5.1 [facility] Sodium [Moles/Vol] 138 mmol/L Normal 137-145 [facility] Urea nitrogen [Mass/Vol] 17 mg/dL Normal 7-20 [facility] B12 & FOLATEon 09-23-2023 Cobalamin (Vitamin B12) [Mass/Vol] 383 pg/mL 239 - 931 PG/ML [facility] Folate [Mass/Vol] 6.4 ng/mL [facility] B12 FOLATEon 09-23-2023 Cobalamin (Vitamin B12) [Mass/Vol] 383 pg/mL Normal 239-931 [facility] FOLATE 6.4 NG/ML Normal 2.56-20.0 [facility] CBCon 09-23-2023 ABSOLUTE BAS 0.0 10*3/uL Normal 0.0-0.2 [facility] ABSOLUTE EOS 0.0 10*3/uL Normal 0.0-0.7 [facility] ABSOLUTE NEUTROPHIL COUNT 12.1 10*3/uL High 1.4-6.5 [facility] Basophils/100 WBC (Bld) 0.1 % Normal 0.0-2.0 [facility] DTYPE AUTO DIFF Normal [facility] Eosinophils/100 WBC (Bld) 0.1 % Normal 0.0-11.0 [facility] Lymphocytes (Bld) [#/Vol] 0.8 10*3/uL Low 1.2-3.4 [facility] Lymphocytes/100 WBC (Bld) 6.0 % Low 20.0-55.0 [facility] Monocytes (Bld) [#/Vol] 1.1 10*3/uL High 0.0-0.7 [facility] Monocytes/100 WBC (Bld) 7.6 % Normal 0.0-10.0 [facility] Neutrophils/100 WBC (Bld) 86.2 % High 37.0-75.0 [facility] Erythrocyte distribution width (RBC) [Ratio] 13.9 % Normal 11.5-14.5 [facility] Hematocrit (Bld) [Volume fraction] 34.7 % Low 42.0-52.0 [facility] Hemoglobin (Bld) [Mass/Vol] 11.6 g/dL Low 14.0-18.0 [facility] MCH (RBC) [Entitic mass] 28.9 pg Normal 26.0-35.0 [facility] MCHC (RBC) [Mass/Vol] 33.4 g/dL Normal 27.0-37.0 [facility] MCV (RBC) [Entitic vol] 86.5 fL Normal 80.0-100.0 [facility] Platelet mean volume (Bld) [Entitic vol] 8.5 fL Normal 7.4-11.0 [facility] Platelets (Bld) [#/Vol] 167 10*3/uL Normal 130-400 [facility] RBC (Bld) [#/Vol] 4.01 10*6/uL Normal 4.0-6.1 [facility] WBC (Bld) [#/Vol] 14.1 10*3/uL High 3.6-11.0 [facility] CBC, EDIF, PLATELETon 2022 ABSOLUTE BASOPHIL COUNT 0.0 10*3/uL 0.0 - 0.2 10*3/uL [facility] Basophils/100 WBC (Bld) 0.1 % 0.0 - 2.0 % [facility] Differential cell count method Nom (Bld) AUTO DIFF % [facility] Eosinophils (Bld) [#/Vol] 0.0 10*3/uL 0.0 - 0.7 10*3/uL [facility] Eosinophils/100 WBC (Bld) 0.1 % 0.0 - 11.0 % [facility] Erythrocyte distribution width (RBC) [Ratio] 13.9 % 11.5 - 14.5 % [facility] Hematocrit (Bld) [Volume fraction] 34.7 % Low 42.0 - 52.0 % [facility] Hemoglobin (Bld) [Mass/Vol] 11.6 g/dL Low [facility] Interpretation and review of laboratory results Abnormal [facility] Lymphocytes (Bld) [#/Vol] 0.8 10*3/uL Low 1.2 - 3.4 10*3/uL [facility] Lymphocytes/100 WBC (Bld) 6.0 % Low 20.0 - 55.0 % [facility] MCH (RBC) [Entitic mass] 28.9 pg 26.0 - 35.0 PG [facility] MCHC (RBC) [Mass/Vol] 33.4 g/dL [facility] MCV (RBC) [Entitic vol] 86.5 fL [facility] Monocytes (Bld) [#/Vol] 1.1 10*3/uL High 0.0 - 0.7 10*3/uL [facility] Monocytes/100 WBC (Bld) 7.6 % 0.0 - 10.0 % [facility] Neutrophils (Bld) [#/Vol] 12.1 10*3/uL High 1.4 - 6.5 10*3/uL [facility] Neutrophils/100 WBC (Bld) 86.2 % High 37.0 - 75.0 % [facility] Platelet mean volume (Bld) [Entitic vol] 8.5 fL [facility] Platelets (Bld) [#/Vol] 167 10*3/uL 130 - 400 10*3/uL [facility] RBC (Bld) [#/Vol] 4.01 10*6/uL 4.0 - 6.1 10*6/uL [facility] WBC (Bld) [#/Vol] 14.1 10*3/uL High 3.6 - 11.0 10*3/uL [facility] CKon 09-23-2023 CK [Catalytic activity/Vol] 787 U/L High [facility] CPKon 09-23-2023 CPK 787 IU/L High 55-170 [facility] Cardiac echo study Procedure on [...] Doppler, and color-flow Echocardiogram Imaging system used: sifonr 2D Dimensions IVSd 1.4 cm M: 0.6-1.0 [...] ms MVA PHT 4.40 cm2 MV Dec [place] 515.21 cm/s2 MV Decel. Time 176.32 (160-240 ms) Tricuspid Valve TR P. Velocity 2.17 m/s RAP Estimate 3 mmHg RVSP 21.75 mmHg TR maxPG 18.75 mmHg CARDIOLOGY Javid Colindres M D - 09/23/2023 APPROVED REPORT Conclusion Normal to [...] Doppler, and color-flow Echocardiogram Imaging system used: GE 2D Dimensions IVSd 1.4 cm M: 0.6-1.0LVEF (Torres's)72.70 % M: 52 - 72 PWd 1.1 cm M: 0.6 - 1.0EF AP4-a2DQ73.36 % LVDd 4.0 cm M: 4.2 - 5.8EF AP2-a2DQ71.42 % LVDs 2.96 cm M: 2.5 - 4.0EF BP-a2DQ72.70 % Aortic Root 2.98 cm M: 3.1 - 3.7YKBDI85 mL Aortic Root Index1.4 cm/c2RIWJV36.15 mL M: 62 - 150 Ascending Aorta 3.09 cm M: 2.6 - 3.4LV Volume Index44.30 mL/m2 M: 34 - 74 Ascending Aorta Index: 1.5 cm/m2LA Sdlpak48.0 mL Left Atrium 2.40 cm M: 3.0 [...] Ratio1.32MV PHT50.00 ms MVA PHT4.40 cm2MV Dec [place] 515.21 cm/s2 MV Decel. Gmsm928.32 (160-240 ms) Tricuspid Valve TR P. Velocity2.17 m/sRAP Estimate3 mmHg RVSP21.75 mmHgTR maxPG 18.75 mmHg [facility] Radiology Study observation (narrative) [facility] Cardiac echo study Procedure Ordered By: Javid Colindres on 09-23-2023 [facility] Work Phone: EEG AWAKE, ROUTINEon 023 Cecil Yu MD 09/23/2023 3:30 PM Interpreting physician: Cecil Yu M.D. This is a routine EEG performed on a 47 y.o. year-old male using standard 10-20 lead placement and a [employer] system. All data was obtained digitally and [...] activity consistent with a moderate diffuse encephalopathy. [facility] EEG AWAKE, ROUTINEOrdered By : Cecil Yu on 09-23-2023 [facility] Work Phone: GLUCOSE (POC DEVICE)on 09-23 GLUCOSE, POINT OF CARE [address] [facility] Interpretation and review of laboratory results Abnormal [facility] Operator [id number] [facility] GLUCOSE, POINT OF CARE [address] [facility] Interpretation and review of laboratory results Abnormal [facility] Operator [id number] [facility] GLUCOSE, POINT OF CARE [address] [facility] Interpretation and review of laboratory results Abnormal [facility] Operator [id number] [facility] GLUCOSE, POINT OF CARE [address] [facility] [place] [id number] [facility] GLUCOSE, POINT OF CARE [address] [facility] De[place]ward [id number] [facility] GLUCOSE, POINT OF CARE [address] [facility] Operator [id number] [facility] MAGNESIUMon 09-23-2023 Magnesium [Mass/Vol] 1.9 mg/dL Normal 1.6-2.3 [facility] Magnesium [Mass/Vol] 1.9 mg/dL [facility] No Panel Informationon 09-23 Interpretation and review of laboratory results Abnormal [facility] POCT GLUCOSEon 09-23-2023 Glucose [Mass/Vol] 149 mg/dL High 70-100 [facility] PHLEBOTOMY TECHNICIAN [id number] Normal [facility] Glucose [Mass/Vol] 149 mg/dL High 70-100 [facility] PHLEBOTOMY TECHNICIAN [id number] Normal [facility] Glucose [Mass/Vol] 136 mg/dL High 70-100 [facility] PHLEBOTOMY TECHNICIAN [id number] Normal [facility] Glucose [Mass/Vol] 91 mg/dL Normal 70-100 [facility] PHLEBOTOMY TECHNICIAN [id number] Normal [facility] Glucose [Mass/Vol] 85 mg/dL Normal 70-100 [facility] PHLEBOTOMY TECHNICIAN [id number] Normal [facility] Glucose [Mass/Vol] 86 mg/dL Normal 70-100 [facility] PHLEBOTOMY TECHNICIAN Normal [facility] Glucose [Mass/Vol] 79 mg/dL Normal 70-100 [facility] Glucose [Mass/Vol] 89 mg/dL Normal 70-100 [facility] PHLEBOTOMY TECHNICIAN [id number] Normal [facility] PHLEBOTOMY TECHNICIAN [id number] Normal [facility] RENAL FUNCTION PANELon 09-23 Albumin [Mass/Vol] 3.5 G/dl 3.5 - 5.0 G/dl [facility] Calcium [Mass/Vol] 8.1 mg/dL Low [facility] Chloride [Moles/Vol] 112 mmol/L High [facility] Comment on above: Please note: Triglyc eride levels of 600mg/dL or higher may positively bias chloride results by approximately 2.1 mmol CO2 [Moles/Vol] 23 mmol/L [facility] Creatinine [Mass/Vol] 1.10 mg/dL [facility] GFR COMMENT Average GFR for 40-4 9 years old = 99. [facility] Comment on above: Chronic Kidney disea se, GFR = <60. Kidney failure, GFR = <15. The GFR estimate is not adjusted for extreme body surface area or acute process, nor has it been validated for women or ethnic groups other than and . GFR/1.73 sq M.predicted among blacks MDRD (S/P/Bld) [Vol rate/Area] 92 mL/min/{1.73_m2} ml/min/1.73s q.m [facility] GFR/1.73 sq M.predicted among non-blacks MDRD (S/P/Bld) [Vol rate/Area] 76 mL/min/{1.73_m2} ml/min/1.73s q.m [facility] Glucose post fast [Mass/Vol] 68 mg/dL Low [facility] Comment on above: NORMAL <100 mg/dL PREDIABETES 101-126 mg/dL DIABETES 126 mg/dL or higher Phosphate [Mass/Vol] 2.6 mg/dL [facility] Potassium [Moles/Vol] 3.6 mmol/L [facility] Sodium [Moles/Vol] 140 mmol/L [facility] Urea nitrogen [Mass/Vol] 22 mg/dL High [facility] RENAL PANEL,FASTINGon 2022 ALBUMIN 3.5 G/dl Normal 3.5-5.0 [facility] Calcium [Mass/Vol] 8.1 mg/dL Low 8.4-10.2 [facility] Chloride [Moles/Vol] 112 mmol/L High 98-107 [facility] Comment on above: Result Comment: Plea se note: Triglyceride levels of 600mg/dL or higher may positively bias chloride results by approximately 2.1 mmol CO2 [Moles/Vol] 23 mmol/L Normal 22-[address] [facility] Creatinine [Mass/Vol] 1.10 mg/dL Normal 0.7-1.2 [facility] EST. GFR, 92 ml/min/1.73sq.m Normal [facility] EST. GFR,Non 76 ml/min/1.73sq.m Normal [facility] GFR Information Average GFR for 40-4 9 years old = 99. Normal [facility] Comment on above: Result Comment: [employer] Handler alfreda Kidney disease, GFR = <60. Kidney failure, GFR = <15. The GFR estimate is not adjusted for extreme body surface area or acute process, nor has it been validated for women or ethnic groups other than and . Glucose [Mass/Vol] 68 mg/dL Low 70-100 [facility] Comment on above: Result Comment: NORMAL <100 mg/dL PREDIABETES 101-126 mg/dL DIABETES 126 mg/dL or higher PHOSPHOROUS 2.6 MG/DL Normal 2.5-4.5 [facility] Potassium [Moles/Vol] 3.6 mmol/L Normal 3.5-5.1 [facility] Sodium [Moles/Vol] 140 mmol/L Normal 137-145 [facility] Urea nitrogen [Mass/Vol] 22 mg/dL High 7-20 [facility] URINE CULTUREon 09-23-2023 Bacteria identified Cx Nom (Unsp spec) NO GROWTH 2 DAYS [facility] Comment on above: Testing performed at [place] [id number] Service comment (Unsp spec) [Interp] 09/23/2023 [facility] Comment on above: FINAL SPECIMEN DESCRIPTION URINE - OTHER A [facility] AMMONIAon 09-22-2023 Ammonia (P) [Moles/Vol] 42 umol/L High 9-30 [facility] Ammonia (P) [Mass/Vol] 42 ug/dL High [facility] Interpretation and review of laboratory results Abnormal [facility] ARTERIAL BLOOD GASon 023 JODY'S TEST NOT APPLICABLE Normal [facility] BASE DEFICIT 1.1 mEq/L Normal 0-2 [facility] cHCO3 (P,ST)C 23.5 mEq/L Normal 22-26 [facility] ctHb 12.2 g/dl Normal [facility] FCOHb 0.3 % Normal [facility] FMetHb 0.8 % Normal [facility] FO2Hb 97.8 % Normal [facility] O2 DEVICE VENT Normal [facility] PATIENT DIAGNOSIS RESPIRATORY FAILURE Normal [facility] PATIENT O2 SETTINGS 30% Normal [facility] pCO2, arterial 38 mmHg Normal 35-45 [facility] pH, arterial 7.40 Normal 7.350-7.450 [facility] pO2,arterial 150 mmHg High 80-100 [facility] SAMPLE SITE RIGHT BRACHIAL Normal [facility] sO2,arterial 98.9 % Normal 95-100 [facility] Arterial patency Wrist artery --pre arterial puncture NOT APPLICABLE [facility] Base deficit (BldV) [Moles/Vol] 1.1 [facility] Carboxyhemoglobin (Bld) [Mass fraction] 0.3 % [facility] CO2 (Bld) [Partial pressure] 38 mm[Hg] [facility] Diagnosis Narrative RESPIRATORY FAILURE [facility] HCO3 (Bld) [Moles/Vol] 23.5 mmol/L [facility] Hemoglobin (Bld) [Mass/Vol] 12.2 g/dL [facility] Interpretation and review of laboratory results Abnormal [facility] Methemoglobin (BldC) [Mass fraction] 0.8 % [facility] O2 Device VENT [facility] Oxygen (Bld) [Partial pressure] 150 mm[Hg] High [facility] Oxyhemoglobin (Bld) [Mass fraction] 97.8 % [facility] PATIENT PO2 SETTINGS 30% [facility] pH (Bld) 7.40 [pH] 7.350 - 7.450 [facility] Specimen site Narrative RIGHT BRACHIAL [facility] C REACTIVE PROTEINon 023 CRP [Mass/Vol] 18.1 mg/L High 0-10 [facility] CRP [Mass/Vol] 18.1 mg/L High 0 - 10 MG/L [facility] CBC09-22-2023 ABSOLUTE BAS 0.0 10*3/uL Normal 0.0-0.2 [facility] ABSOLUTE EOS 0.1 10*3/uL Normal 0.0-0.7 [facility] ABSOLUTE NEUTROPHIL COUNT 8.5 10*3/uL High 1.4-6.5 [facility] Basophils/100 WBC (Bld) 0.3 % Normal 0.0-2.0 [facility] DTYPE AUTO DIFF Normal [facility] Eosinophils/100 WBC (Bld) 0.5 % Normal 0.0-11.0 [facility] Lymphocytes (Bld) [#/Vol] 1.4 10*3/uL Normal 1.2-3.4 [facility] Lymphocytes/100 WBC (Bld) 12.4 % Low 20.0-55.0 [facility] Monocytes (Bld) [#/Vol] 1.0 10*3/uL High 0.0-0.7 [facility] Monocytes/100 WBC (Bld) 9.1 % Normal 0.0-10.0 [facility] Neutrophils/100 WBC (Bld) 77.7 % High 37.0-75.0 [facility] Erythrocyte distribution width (RBC) [Ratio] 14.1 % Normal 11.5-14.5 [facility] Hematocrit (Bld) [Volume fraction] 38.0 % Low 42.0-52.0 [facility] Comment on above: Result Comment: IV F LUIDS Hemoglobin (Bld) [Mass/Vol] 12.7 g/dL Low 14.0-18.0 [facility] Comment on above: Result Comment: iv f luids MCH (RBC) [Entitic mass] 28.9 pg Normal 26.0-35.0 [facility] MCHC (RBC) [Mass/Vol] 33.4 g/dL Normal 27.0-37.0 [facility] MCV (RBC) [Entitic vol] 86.7 fL Normal 80.0-100.0 [facility] Platelet mean volume (Bld) [Entitic vol] 8.5 fL Normal 7.4-11.0 [facility] Platelets (Bld) [#/Vol] 151 10*3/uL Normal 130-400 [facility] RBC (Bld) [#/Vol] 4.39 10*6/uL Normal 4.0-6.1 [facility] WBC (Bld) [#/Vol] 11.0 10*3/uL Normal 3.6-11.0 [facility] CBC, EDIF, PLATELETon 2022 ABSOLUTE BASOPHIL COUNT 0.0 10*3/uL 0.0 - 0.2 10*3/uL [facility] Basophils/100 WBC (Bld) 0.3 % 0.0 - 2.0 % [facility] Differential cell count method Nom (Bld) AUTO DIFF % [facility] Eosinophils (Bld) [#/Vol] 0.1 10*3/uL 0.0 - 0.7 10*3/uL [facility] Eosinophils/100 WBC (Bld) 0.5 % 0.0 - 11.0 % [facility] Erythrocyte distribution width (RBC) [Ratio] 14.1 % 11.5 - 14.5 % [facility] Hematocrit (Bld) [Volume fraction] 38.0 % Low 42.0 - 52.0 % [facility] Comment on above: IV FLUIDS Hemoglobin (Bld) [Mass/Vol] 12.7 g/dL Low [facility] Comment on above: iv fluids Interpretation and review of laboratory results Abnormal [facility] Lymphocytes (Bld) [#/Vol] 1.4 10*3/uL 1.2 - 3.4 10*3/uL [facility] Lymphocytes/100 WBC (Bld) 12.4 % Low 20.0 - 55.0 % [facility] MCH (RBC) [Entitic mass] 28.9 pg 26.0 - 35.0 PG [facility] MCHC (RBC) [Mass/Vol] 33.4 g/dL [facility] MCV (RBC) [Entitic vol] 86.7 fL [facility] Monocytes (Bld) [#/Vol] 1.0 10*3/uL High 0.0 - 0.7 10*3/uL [facility] Monocytes/100 WBC (Bld) 9.1 % 0.0 - 10.0 % [facility] Neutrophils (Bld) [#/Vol] 8.5 10*3/uL High 1.4 - 6.5 10*3/uL [facility] Neutrophils/100 WBC (Bld) 77.7 % High 37.0 - 75.0 % [facility] Platelet mean volume (Bld) [Entitic vol] 8.5 fL [facility] Platelets (Bld) [#/Vol] 151 10*3/uL 130 - 400 10*3/uL [facility] RBC (Bld) [#/Vol] 4.39 10*6/uL 4.0 - 6.1 10*6/uL [facility] WBC (Bld) [#/Vol] 11.0 10*3/uL 3.6 - 11.0 10*3/uL [facility] CKon 09-22-2023 CK [Catalytic activity/Vol] 282 U/L High [facility] CMP FASTINGon 09-22-2023 A:G RATIO 1.3 RATIO Normal 1.3-2.2 [facility] ALBUMIN 3.4 G/dl Low 3.5-5.0 [facility] ALP [Catalytic activity/Vol] 76 U/L Normal 38-126 [facility] ALT [Catalytic activity/Vol] 25 U/L Normal <50 [facility] AST [Catalytic activity/Vol] 35 U/L Normal 17-59 [facility] Bilirubin [Mass/Vol] 0.4 mg/dL Normal 0.2-1.3 [facility] Calcium [Mass/Vol] 8.2 mg/dL Low 8.4-10.2 [facility] Chloride [Moles/Vol] 109 mmol/L High 98-107 [facility] Comment on above: Result Comment: Juana spencer note: Triglyceride levels of 600mg/dL or higher may positively bias chloride results by approximately 2.1 mmol CO2 [Moles/Vol] 23 mmol/L Normal 22-[address] [facility] Creatinine [Mass/Vol] 1.40 mg/dL High 0.7-1.2 [facility] EST. GFR, 69 ml/min/1.73sq.m Normal [facility] EST. GFR,Non 57 ml/min/1.73sq.m [facility] GFR Information Average GFR for 40-4 9 years old = 99. Normal [facility] Comment on above: Result Comment: [employer] alfreda Kidney disease, GFR = <60. Kidney failure, GFR = <15. The GFR estimate is not adjusted for extreme body surface area or acute process, nor has it been validated for women or ethnic groups other than and . Glucose [Mass/Vol] 72 mg/dL Normal 70-100 [facility] Comment on above: Result Comment: NORMAL <100 mg/dL PREDIABETES 101-126 mg/dL DIABETES 126 mg/dL or higher Potassium [Moles/Vol] 4.2 mmol/L Normal 3.5-5.1 [facility] Protein [Mass/Vol] 6.0 g/dL Low 6.3-8.2 [facility] Sodium [Moles/Vol] 138 mmol/L Normal 137-145 [facility] Urea nitrogen [Mass/Vol] 35 mg/dL High 7-20 [facility] COMPREHENSIVE METABOLIC PANE Jt 09-22-2023 Albumin [Mass/Vol] 3.4 G/dl Low 3.5 - 5.0 G/dl [facility] Albumin/Globulin [Mass ratio] 1.3 {ratio} [facility] ALP [Catalytic activity/Vol] 76 U/L [facility] ALT [Catalytic activity/Vol] 25 U/L NINF [facility] AST [Catalytic activity/Vol] 35 U/L [facility] Bilirubin [Mass/Vol] 0.4 mg/dL [facility] Calcium [Mass/Vol] 8.2 mg/dL Low [facility] Chloride [Moles/Vol] 109 mmol/L [facility] [facility] Comment on above: Please note: Triglyc eride levels of 600mg/dL or higher may positively bias chloride results by approximately 2.1 mmol CO2 [Moles/Vol] 23 mmol/L [facility] Creatinine [Mass/Vol] 1.40 mg/dL High [facility] GFR COMMENT Average GFR for 40-4 9 years old = 99. [facility] Comment on above: Chronic Kidney disea se, GFR = <60. Kidney failure, GFR = <15. The GFR estimate is not adjusted for extreme body surface area or acute process, nor has it been validated for women or ethnic groups other than and . GFR/1.73 sq M.predicted among blacks MDRD (S/P/Bld) [Vol rate/Area] 69 mL/min/{1.73_m2} ml/min/1.73s q.m [facility] GFR/1.73 sq M.predicted among non-blacks MDRD (S/P/Bld) [Vol rate/Area] 57 mL/min/{1.73_m2} ml/min/1.73s q.m [facility] Glucose post fast [Mass/Vol] 72 mg/dL [facility] Comment on above: NORMAL <100 mg/dL PREDIABETES 101-126 mg/dL DIABETES 126 mg/dL or higher Interpretation and review of laboratory results Abnormal [facility] Potassium [Moles/Vol] 4.2 mmol/L [facility] Protein [Mass/Vol] 6.0 g/dL Low [facility] Sodium [Moles/Vol] 138 mmol/L [facility] Urea nitrogen [Mass/Vol] 35 mg/dL High [facility] CPKon 09-22-2023 CPK 282 IU/L High 55-170 [facility] ESRon 09-22-2023 ESR (Bld) [Velocity] 21 mm/h High 0-15 [facility] GLUCOSE (POC DEVICE)on 09-22 GLUCOSE, POINT OF CARE [address] [facility] GLUCOSE, POINT OF CARE [address] [facility] [place] [phone] [facility] [place] [phone] [facility] GLUCOSE, POINT OF CARE [address] [facility] [phone] [facility] GLUCOSE, POINT OF CARE [address] [facility] [place] [phone] [facility] GLUCOSE, POINT OF CARE [address] [facility] Interpretation and review of laboratory results Abnormal [facility] [phone] [facility] GLUCOSE, POINT OF CARE [address] [facility] [place] [phone] [facility] GLUCOSE, POINT OF CARE [address] [facility] GLUCOSE, POINT OF CARE [address] [facility] Interpretation and review of laboratory results Abnormal [facility] Operator [id number] [facility] Operator [id number] [facility] HEMOGLOBIN A1Con 09-22-2023 Glucose [Mass/Vol] 280 mg/dL Normal [facility] HbA1c (Bld) [Mass fraction] 11.4 % High 0-6 [facility] Comment on above: Result Comment: NORMAL <5.7% PREDIABETES 5.7-6.4% DIABETES 6.5% OR HIGHER Glucose [Mass/Vol] 280 mg/dL [facility] HbA1c (Bld) [Mass fraction] 11.4 % High 0 - 6 % [facility] Comment on above: NORMAL <5.7% PREDIABETES 5.7-6.4% DIABETES 6.5% OR HIGHER Interpretation and review of laboratory results Abnormal [facility] MAGNESIUMon 09-22-2023 Magnesium [Mass/Vol] 2.0 mg/dL Normal 1.6-2.3 [facility] Magnesium [Mass/Vol] 2.0 mg/dL [facility] MR Brain WO contraston 09-22 IMPRESSION: No infarct, mass or hemorrhage RADIOLOGY EXAMINATION: MRI Bra in without Contrast EXAM DATE: 09/22/2023 3:06 PM EST TECHNIQUE: Routine protocol brain MRI sequence acquisition without intravenous contrast. INDICATION: Altered mental status COMPARISON: 09/21/2023 CT __ FINDINGS: Motion artifact limits the evaluation somewhat No fluid collection, hemorrhage or diffusion abnormality. Brain signal and configuration are within normal limits. Age-appropriate CSF spaces. Major vascular flow voids are preserved. OTHER: [id number] sphenoid sinus mucosal inflammatory change, + polypoidal features on the right. __ RADIOLOGY Eduin De León MD - 09/22/2023 EXAMINATION: MRI Brain without Contrast EXAM DATE: 09/22/2023 3:06 PM EST TECHNIQUE: Routine protocol brain MRI sequence acquisition without intravenous contrast. INDICATION: Altered mental status COMPARISON: 09/21/2023 CT __ FINDINGS: Motion artifact limits the evaluation somewhat No fluid collection, hemorrhage or diffusion abnormality. Brain signal and configuration are within normal limits. Age-appropriate CSF spaces. Major vascular flow voids are preserved. OTHER: Kknp-sv-[id number] sphenoid sinus mucosal inflammatory change, + polypoidal features on the right. __ IMPRESSION IMPRESSION: No infarct, mass or hemorrhage [facility] Radiology Study observation (narrative) [facility] MR Brain WO contrastOrdered By: Eduin De León on 09-22-2023 [facility] Work Phone: MRI BRAIN WITHOUT CONTRASTon 09-22-2023 MRI BRAIN WITHOUT CONTRAST EXAMINATION: MRI Brain without Contrast EXAM DATE: 09/22/2023 3:06 PM EST TECHNIQUE: Routine protocol brain MRI sequence acquisition without intravenous contrast. INDICATION: Altered mental status COMPARISON: 09/21/2023 CT __ FINDINGS: Motion artifact limits the evaluation somewhat No fluid collection, hemorrhage or diffusion abnormality. Brain signal and configuration are within normal limits. Age-appropriate CSF spaces. Major vascular flow voids are preserved. OTHER: [id number] sphenoid sinus mucosal inflammatory change, + polypoidal features on the right. __ IMPRESSION: No infarct, mass or hemorrhage Normal [facility] MRSA SCREENon 09-22-2023 MRSA DNA MEETA+probe Ql (Unsp spec) Negative Normal NEGATIVE [facility] STAPH AUREUS SCREEN Positive Abnormal NEGATIVE [facility] Comment on above: Result Comment: TEST ING PERFORMED BY PCR No Panel Informationon 09-22 [facility] Interpretation and review of laboratory results Abnormal [facility] POCT GLUCOSEon 09-22-2023 Glucose [Mass/Vol] 98 mg/dL Normal 70-100 [facility] PHLEBOTOMY TECHNICIAN [id number] Normal [facility] Glucose [Mass/Vol] 73 mg/dL Normal 70-100 [facility] PHLEBOTOMY TECHNICIAN [id number] Normal [facility] Glucose [Mass/Vol] 67 mg/dL Low 70-100 [facility] PHLEBOTOMY TECHNICIAN [id number] Normal [facility] Glucose [Mass/Vol] 80 mg/dL Normal 70-100 [facility] PHLEBOTOMY TECHNICIAN [id number] Normal [facility] Glucose [Mass/Vol] 95 mg/dL Normal 70-100 [facility] Glucose [Mass/Vol] 109 mg/dL High 70-100 [facility] PHLEBOTOMY TECHNICIAN [id number] Normal [facility] PHLEBOTOMY TECHNICIAN [id number] Normal [facility] Glucose [Mass/Vol] 158 mg/dL High 70-100 [facility] PHLEBOTOMY TECHNICIAN [id number] Normal [facility] PROCALCITONINon 09-22-2023 PROCALCITONIN 0.08 ng/mL Normal 0.00-0.25 [facility] Comment on above: Result Comment: PCT Interpretation Less than 0.10 ng/mL, antibiotic therapy strongly discouraged. 0.10-0.25 ng/mL, antibiotic therapy discouraged. 0.25-0.50 ng/mL, antibiotic therapy encouraged. Greater than 0.50 ng/mL, antibiotic therapy strongly encouraged. PROCALCITONIN 0.08 ng/mL 0.00 - 0.25 ng/mL [facility] Comment on above: PCT Interpretation Less than 0.10 ng/mL, antibiotic therapy strongly discouraged. 0.10-0.25 ng/mL, antibiotic therapy discouraged. 0.25-0.50 ng/mL, antibiotic therapy encouraged. Greater than 0.50 ng/mL, antibiotic therapy strongly encouraged. [facility] RAPID TOX SCREEN,URINEon AMPHETAMINE Negative Normal NEGATIVE [facility] Comment on above: Result Comment: <500 ng/ml CUTOFF BARBITURATES Negative Normal NEGATIVE [facility] Comment on above: Result Comment: <200 ng/ml CUTOFF BENZODIAZEPINES Positive Abnormal NEGATIVE [facility] Comment on above: Result Comment: <200 ng/ml CUTOFF *Unconfirmed Screening Result* Unconfirmed screening results are to be used only for medical treatment purposes. BUPRENORPHINE Negative Normal NEGATIVE [facility] Comment on above: Result Comment: <12. 5 ng/ml CUTOFF CANNABINOIDS Negative Normal NEGATIVE [facility] Comment on above: Result Comment: <50 ng/ml CUTOFF COCAINE Negative Normal NEGATIVE [facility] Comment on above: Result Comment: <150 ng/ml CUTOFF FENTANYL Negative Normal NEGATIVE [facility] Comment on above: Result Comment: 20 n g/mL CUTOFF *Unconfirmed Screening Result* Unconfirmed screening results are to be used only for medical treatment purposes. This test has not been approved by the FDA. MDMA Positive Abnormal NEGATIVE [facility] Comment on above: Result Comment: <100 0 ng/ml CUTOFF METHADONE Negative Normal NEGATIVE [facility] Comment on above: Result Comment: Meth adone Metabolite <100 ng/ml CUTOFF METHAMPHETAMINE Negative Normal NEGATIVE [facility] Comment on above: Result Comment: <500 ng/ml CUTOFF OPIATES Negative Normal NEGATIVE [facility] Comment on above: Result Comment: <300 ng/ml CUTOFF OXYCODONE Negative Normal NEGATIVE [facility] Comment on above: Result Comment: <100 ng/ml CUTOFF TRICYCLIC ANTIDEPRESSANTS Negative Normal NEGATIVE [facility] Comment on above: Result Comment: <100 0 ng/ml CUTOFF RESPIRATORY SYNCYTIAL VIRUS PCRon 09-22-2023 RSV Ag IA Ql (Unsp spec) Negative NEGATIVE [facility] RSVon 09-22-2023 RSV Negative Normal NEGATIVE [facility] SEDIMENTATION RATE, AUTOMATE Don 09-22-2023 ESR (Bld) [Velocity] 21 mm/h [facility] Interpretation and review of laboratory results Abnormal [facility] TOXICOLOGY DRUG SCREEN, URIN Harpreet 09-22-2023 Amphetamine (U) [Mass/Vol] Negative NEGATIVE NG/ML [facility] Comment on above: <500 ng/ml CUTOFF Barbiturates Screen Ql (U) Negative NEGATIVE NG/ML [facility] Comment on above: <200 ng/ml CUTOFF Benzodiazepines Ql (U) Positive Abnormal NEGAT RAJAN NG/ML [facility] Comment on above: <200 ng/ml CUTOFF *Unconfirmed Screening Result* Unconfirmed screening results are to be used only for medical treatment purposes. Benzoylecgonine Ql (U) Negative NEGAT RAJAN NG/ML [facility] Comment on above: <150 ng/ml CUTOFF Buprenorphine Ql (U) Negative NEGATIV E NG/ML [facility] Comment on above: <12.5 ng/ml CUTOFF Cannabinoids Screen Ql (U) Negative NEGATIVE NG/ML [facility] Comment on above: <50 ng/ml CUTOFF Fentanyl Negative NEGATIVE NG/ML [facility] Comment on above: 20 ng/mL CUTOFF *Unconfirmed Screening Result* Unconfirmed screening results are to be used only for medical treatment purposes. This test has not been approved by the FDA. Interpretation and review of laboratory results Abnormal [facility] Methadone Screen Ql (U) Negative NEGATIVE NG/ML [facility] Comment on above: Methadone Metabolite <100 ng/ml CUTOFF Methamphetamine (U) [Mass/Vol] Negative NEGATIVE NG/ML [facility] Comment on above: <500 ng/ml CUTOFF Methylenedioxymethamph etamine Ql (Unsp spec) Positive Abnormal NEGATIVE NG/ML [facility] Comment on above: <1000 ng/ml CUTOFF Opiates Screen Ql (U) Negative NEGATI VE NG/ML [facility] Comment on above: <300 ng/ml CUTOFF oxyCODONE Ql (U) Negative NEGATIVE NG/ML [facility] Comment on above: <100 ng/ml CUTOFF Tricyclic antidepressants Screen Ql (U) Negative NEGATIVE NG/ML [facility] Comment on above: <1000 ng/ml CUTOFF [facility] TROPONIN I, HIGH SENSITIVITY on 09-22-2023 TROPONIN I, HIGH SENSITIVITY 28 pg/mL High 0-20 [facility] Comment on above: Result Comment: Indeterminant: >12 to 100 pg/mL female >20 to 100 pg/mL male Indicative of myocardial injury. Serial sampling is recommended, a change of greater than or equal to 20 pg/mL is indicative of acute coronary syndrome. Interpretation and review of laboratory results Abnormal [facility] TROPONIN I, HIGH SENSITIVITY 28 pg/mL High 0 - 20 pg/mL [facility] Comment on above: Indeterminant: >12 to 100 pg/mL female >20 to 100 pg/mL male Indicative of myocardial injury. Serial sampling is recommended, a change of greater than or equal to 20 pg/mL is indicative of acute coronary syndrome. [facility] TSH W/FT4 REFLEXon 3 TSH Qn 0.594 m[IU]/L [facility] TSH,REFLEX FREE T4on 023 TSH,REFLEX FREE T4 0.594 uIU/ML Normal 0.46-4.68 [facility] VENTILATOR SETTINGSon 2022 fiO2 30% Normal [facility] PEEP 5 cmH2O Normal [facility] PRESSURE SUPPORT 5 cmH2O Normal [facility] VENT SETTING PS Normal [facility] BIPAP AndOr CPAP setting Ventilator PS [facility] Oxygen/Inspired gas setting [Volume Fraction] Ventilator 30% % [facility] Positive end expiratory pressure setting Ventilator 5 cmH2O [facility] Pressure support setting Ventilator 5 cmH2O [facility] ALCOHOLon 09-21-2023 Ethanol [Mass/Vol] mg/dL Normal 0-10 [facility] Comment on above: Result Comment: INTOXICATION >80 MG/DL FATAL >400 MG/DL ALCOHOL (ETHANOL),BLOODon Ethanol [Mass/Vol] mg/dL [facility] Comment on above: INTOXICATION >80 MG/DL FATAL >400 MG/DL ARTERIAL BLOOD GASon 023 BASE EXCESS 1.3 mEq/L Normal 0-2 [facility] cHCO3 (P,ST)C 25.9 mEq/L Normal 22-26 [facility] ctHb 14.1 g/dl Normal [facility] FCOHb 0.6 % Normal [facility] FMetHb 0.5 % Normal [facility] FO2Hb 98.7 % Normal [facility] pCO2, arterial 40 mmHg Normal 35-45 [facility] pH, arterial 7.42 Normal 7.350-7.450 [facility] pO2,arterial 492 mmHg High 80-100 [facility] sO2,arterial 99.9 % Normal 95-100 [facility] Base excess Calc (BldV) [Moles/Vol] 1.3 mmol/L [facility] Carboxyhemoglobin (Bld) [Mass fraction] 0.6 % [facility] CO2 (Bld) [Partial pressure] 40 mm[Hg] [facility] HCO3 (Bld) [Moles/Vol] 25.9 mmol/L [facility] Hemoglobin (Bld) [Mass/Vol] 14.1 g/dL [facility] Interpretation and review of laboratory results Abnormal [facility] Methemoglobin (BldC) [Mass fraction] 0.5 % [facility] Oxygen (Bld) [Partial pressure] 492 mm[Hg] High [facility] Oxyhemoglobin (Bld) [Mass fraction] 98.7 % [facility] pH (Bld) 7.42 [pH] 7.350 - 7.450 [facility] BLOOD CULTUREon 09-21-2023 Bacteria identified Cx Nom (Bld) SPECIMEN DESCRIPTION PERIPHERAL BLOOD DRAW SPECIAL REQUESTS LEFT HAND CULTURE NO GROWTH 5 DAYS * Result Note: Testing performed at [place] [id number] * REPORT STATUS 09/26/2023 * Result Note: FINAL * Normal [facility] Comment on above: Performed By: #### L HSV #### Testing performed at [facility] Bacteria identified Cx Nom (Bld) SPECIMEN DESCRIPTION PERIPHERAL BLOOD DRAW SPECIAL REQUESTS LEFT ARM CULTURE NO GROWTH 5 DAYS * Result Note: Testing performed at [place] [address] * REPORT STATUS 09/26/2023 * Result Note: FINAL * Normal [facility] Comment on above: Performed By: #### L HSV #### Testing performed at [facility] CBCon 09-21-2023 ABSOLUTE BAS 0.0 10*3/uL Normal 0.0-0.2 [facility] ABSOLUTE EOS 0.0 10*3/uL Normal 0.0-0.7 [facility] ABSOLUTE NEUTROPHIL COUNT 9.8 10*3/uL High 1.4-6.5 [facility] Basophils/100 WBC (Bld) 0.2 % Normal 0.0-2.0 [facility] DTYPE AUTO DIFF Normal [facility] Eosinophils/100 WBC (Bld) 0.2 % Normal 0.0-11.0 [facility] Lymphocytes (Bld) [#/Vol] 0.6 10*3/uL Low 1.2-3.4 [facility] Lymphocytes/100 WBC (Bld) 5.6 % Low 20.0-55.0 [facility] Monocytes (Bld) [#/Vol] 0.3 10*3/uL Normal 0.0-0.7 [facility] Monocytes/100 WBC (Bld) 3.0 % Normal 0.0-10.0 [facility] Neutrophils/100 WBC (Bld) 91.0 % High 37.0-75.0 [facility] Erythrocyte distribution width (RBC) [Ratio] 14.3 % Normal 11.5-14.5 [facility] Hematocrit (Bld) [Volume fraction] 42.6 % Normal 42.0-52.0 [facility] Hemoglobin (Bld) [Mass/Vol] 14.5 g/dL Normal 14.0-18.0 [facility] MCH (RBC) [Entitic mass] 29.1 pg Normal 26.0-35.0 [facility] MCHC (RBC) [Mass/Vol] 34.0 g/dL Normal 27.0-37.0 [facility] MCV (RBC) [Entitic vol] 85.6 fL Normal 80.0-100.0 [facility] Platelet mean volume (Bld) [Entitic vol] 8.5 fL Normal 7.4-11.0 [facility] Platelets (Bld) [#/Vol] 176 10*3/uL Normal 130-400 [facility] RBC (Bld) [#/Vol] 4.98 10*6/uL Normal 4.0-6.1 [facility] WBC (Bld) [#/Vol] 10.8 10*3/uL Normal 3.6-11.0 [facility] CBC, EDIF, PLATELETon 2022 ABSOLUTE BASOPHIL COUNT 0.0 10*3/uL 0.0 - 0.2 10*3/uL [facility] Basophils/100 WBC (Bld) 0.2 % 0.0 - 2.0 % [facility] Differential cell count method Nom (Bld) AUTO DIFF % [facility] Eosinophils (Bld) [#/Vol] 0.0 10*3/uL 0.0 - 0.7 10*3/uL [facility] Eosinophils/100 WBC (Bld) 0.2 % 0.0 - 11.0 % [facility] Erythrocyte distribution width (RBC) [Ratio] 14.3 % 11.5 - 14.5 % [facility] Hematocrit (Bld) [Volume fraction] 42.6 % 42.0 - 52.0 % [facility] Hemoglobin (Bld) [Mass/Vol] 14.5 g/dL [facility] Interpretation and review of laboratory results Abnormal [facility] Lymphocytes (Bld) [#/Vol] 0.6 10*3/uL Low 1.2 - 3.4 10*3/uL [facility] Lymphocytes/100 WBC (Bld) 5.6 % Low 20.0 - 55.0 % [facility] MCH (RBC) [Entitic mass] 29.1 pg 26.0 - 35.0 PG [facility] MCHC (RBC) [Mass/Vol] 34.0 g/dL [facility] MCV (RBC) [Entitic vol] 85.6 fL [facility] Monocytes (Bld) [#/Vol] 0.3 10*3/uL 0.0 - 0.7 10*3/uL [facility] Monocytes/100 WBC (Bld) 3.0 % 0.0 - 10.0 % [facility] Neutrophils (Bld) [#/Vol] 9.8 10*3/uL High 1.4 - 6.5 10*3/uL [facility] Neutrophils/100 WBC (Bld) 91.0 % High 37.0 - 75.0 % [facility] Platelet mean volume (Bld) [Entitic vol] 8.5 fL [facility] Platelets (Bld) [#/Vol] 176 10*3/uL 130 - 400 10*3/uL [facility] RBC (Bld) [#/Vol] 4.98 10*6/uL 4.0 - 6.1 10*6/uL [facility] WBC (Bld) [#/Vol] 10.8 10*3/uL 3.6 - 11.0 10*3/uL [facility] CMP FASTINGon 09-21-2023 A:G RATIO 1.5 RATIO Normal 1.3-2.2 [facility] ALBUMIN 4.4 G/dl Normal 3.5-5.0 [facility] ALP [Catalytic activity/Vol] 103 U/L Normal 38-126 [facility] ALT [Catalytic activity/Vol] 34 U/L Normal <50 [facility] AST [Catalytic activity/Vol] 39 U/L Normal 17-59 [facility] Bilirubin [Mass/Vol] 0.6 mg/dL Normal 0.2-1.3 [facility] Calcium [Mass/Vol] 9.0 mg/dL Normal 8.4-10.2 [facility] Chloride [Moles/Vol] 103 mmol/L Normal 98-107 [facility] Comment on above: Result Comment: Juana spencer note: Triglyceride levels of 600mg/dL or higher may positively bias chloride results by approximately 2.1 mmol CO2 [Moles/Vol] 24 mmol/L Normal 22-[address] [facility] Creatinine [Mass/Vol] 1.30 mg/dL High 0.7-1.2 [facility] GFR Information Unable to calculate GFR due to inappropriate age/gender/creatinine value. Normal [facility] Glucose [Mass/Vol] 245 mg/dL High 70-100 [facility] Comment on above: Result Comment: NORMAL <100 mg/dL PREDIABETES 101-126 mg/dL DIABETES 126 mg/dL or higher Potassium [Moles/Vol] 4.0 mmol/L Normal 3.5-5.1 [facility] Protein [Mass/Vol] 7.3 g/dL Normal 6.3-8.2 [facility] Sodium [Moles/Vol] 135 mmol/L Low 137-145 [facility] Urea nitrogen [Mass/Vol] 37 mg/dL High 7-20 [facility] COMPREHENSIVE METABOLIC PANE Jt 09-21-2023 Albumin [Mass/Vol] 4.4 G/dl 3.5 - 5.0 G/dl [facility] Albumin/Globulin [Mass ratio] 1.5 {ratio} [facility] ALP [Catalytic activity/Vol] 103 U/L [facility] ALT [Catalytic activity/Vol] 34 U/L NINF [facility] AST [Catalytic activity/Vol] 39 U/L [facility] Bilirubin [Mass/Vol] 0.6 mg/dL [facility] Calcium [Mass/Vol] 9.0 mg/dL [facility] Chloride [Moles/Vol] 103 mmol/L [facility] Comment on above: Please note: Triglyc eride levels of 600mg/dL or higher may positively bias chloride results by approximately 2.1 mmol CO2 [Moles/Vol] 24 mmol/L [facility] Creatinine [Mass/Vol] 1.30 mg/dL High [facility] GFR COMMENT Unable to calculate GFR due to inappropriate age/gender/creatinine value. [facility] Glucose post fast [Mass/Vol] 245 mg/dL [facility] Comment on above: NORMAL <100 mg/dL PREDIABETES 101-126 mg/dL DIABETES 126 mg/dL or higher Interpretation and review of laboratory results Abnormal [facility] Potassium [Moles/Vol] 4.0 mmol/L [facility] Protein [Mass/Vol] 7.3 g/dL [facility] Sodium [Moles/Vol] 135 mmol/L Low [facility] Urea nitrogen [Mass/Vol] 37 mg/dL [facility] CT HEAD WITHOUT CONTRASTon 1 11-22-2022 [...] intracranial hemorrhage or other acute finding. Normal [facility] CT Head WO contraston 2022 [...] of intracranial hemorrhage or other acute finding. [facility] Radiology Study observation (narrative) [facility] CT Head WO contrastOrdered B y: Kris Cherry on 09-21-2023 [facility] Work Phone: CT SPINE CERVICAL WITHOUT [...] narrowed at C3-C4, mildly-moderately narrowed at C4-C5, moderately-severely narrowed from C5 through C7. IMPRESSION: Motion degraded exam. No definite CT evidence of acute osseous abnormality. Degenerative changes detailed above. Normal [facility] GLUCOSE (POC DEVICE)on 09-21 GLUCOSE, POINT OF CARE [address] [facility] Interpretation and review of laboratory results Abnormal [facility] Deck [place] [phone] [facility] GLUCOSE, POINT OF CARE [address] [facility] Interpretation and review of laboratory results Abnormal [facility] Operator [phone] [facility] LACTATE, BLOODon 09-21-2023 Interpretation and review of laboratory results Abnormal [facility] Lactate [Moles/Vol] 2.1 mmol/L Critically high 0.7 - 2.0 mmol/L [facility] Comment on above: PLEASE REPEAT INITIA L CRITICAL IN 3 HOURS IF ED OR INPATIENT SEPSIS PATIENT CALLED TO AND READ BACK BY SIRENA HERNANDEZ IN ER 12.6.23 [id number] BY MAUREEN [facility] LACTATE,BLOODon 09-21-2023 Lactate [Moles/Vol] 2.1 mmol/L Critically high 0.7-2.0 [facility] Comment on above: Result Comment: PLEA SE REPEAT INITIAL CRITICAL IN 3 HOURS IF ED OR INPATIENT SEPSIS PATIENT CALLED TO AND READ BACK BY SIRENA HERNANDEZ IN ER 12.6.23 [id number] BY MAUREEN MAGNESIUMon 09-21-2023 Magnesium [Mass/Vol] 2.0 mg/dL Normal 1.6-2.3 [facility] Magnesium [Mass/Vol] 2.0 mg/dL [facility] No Panel Informationon 09-21 Interpretation and review of laboratory results Abnormal [facility] POCT GLUCOSEon 09-21-2023 Glucose [Mass/Vol] 232 mg/dL High 70-100 [facility] PHLEBOTOMY TECHNICIAN [id number] Normal [facility] Portable XR Chest Views APon 09-21-2023 IMPRESSION: Appropriate positioning of the endotracheal tube. No acute cardiopulmonary abnormality. RADIOLOGY EXAM: XR CHEST AP PORTABLE REASON FOR EXAM: ET placement TECHNIQUE: Single frontal view COMPARISON: None FINDINGS: Endotracheal tube terminates 3.4 cm above the ravindra. No pneumothorax, pleural effusion, or focal consolidation. The cardiac silhouette is not enlarged. RADIOLOGY Deven Junior D O - 09/21/2023 EXAM: XR CHEST AP PORTABLE REASON FOR EXAM: ET placement TECHNIQUE: Single frontal view COMPARISON: None FINDINGS: Endotracheal tube terminates 3.4 cm above the ravindra. No pneumothorax, pleural effusion, or focal consolidation. The cardiac silhouette is not enlarged. IMPRESSION IMPRESSION: Appropriate positioning of the endotracheal tube. No acute cardiopulmonary abnormality. [facility] Radiology Study observation (narrative) [facility] Portable XR Chest Views APOr dered By: Deven Junior on 09-21-2023 [facility] Work Phone: RAPID TOX SCREEN,URINEon AMPHETAMINE Negative Normal NEGATIVE [facility] Comment on above: Result Comment: <500 ng/ml CUTOFF BARBITURATES Negative Normal NEGATIVE [facility] Comment on above: Result Comment: <200 ng/ml CUTOFF BENZODIAZEPINES Positive Abnormal NEGATIVE [facility] Comment on above: Result Comment: <200 ng/ml CUTOFF *Unconfirmed Screening Result* Unconfirmed screening results are to be used only for medical treatment purposes. BUPRENORPHINE Negative Normal NEGATIVE [facility] Comment on above: Result Comment: <12. 5 ng/ml CUTOFF CANNABINOIDS Negative Normal NEGATIVE [facility] Comment on above: Result Comment: <50 ng/ml CUTOFF COCAINE Negative Normal NEGATIVE [facility] Comment on above: Result Comment: <150 ng/ml CUTOFF FENTANYL Negative Normal NEGATIVE [facility] Comment on above: Result Comment: 20 n g/mL CUTOFF *Unconfirmed Screening Result* Unconfirmed screening results are to be used only for medical treatment purposes. This test has not been approved by the FDA. MDMA Positive Abnormal NEGATIVE [facility] Comment on above: Result Comment: <100 0 ng/ml CUTOFF METHADONE Negative Normal NEGATIVE [facility] Comment on above: Result Comment: Meth adone Metabolite <100 ng/ml CUTOFF METHAMPHETAMINE Negative Normal NEGATIVE [facility] Comment on above: Result Comment: <500 ng/ml CUTOFF OPIATES Negative Normal NEGATIVE [facility] Comment on above: Result Comment: <300 ng/ml CUTOFF OXYCODONE Negative Normal NEGATIVE [facility] Comment on above: Result Comment: <100 ng/ml CUTOFF TRICYCLIC ANTIDEPRESSANTS Negative Normal NEGATIVE [facility] Comment on above: Result Comment: <100 0 ng/ml CUTOFF SCREEN: MRSA ONLY, NARES (IS OLATION SCREEN)on 09-21-2023 Interpretation and review of laboratory results Abnormal [facility] MRSA isol Org specific cx Ql (Nose) Negative NEGATIVE [facility] STAPHYOCOCCUS AUREUS BY PCR Positive Abnormal NEGATIVE [facility] Comment on above: TESTING PERFORMED BY PCR [facility] TOXICOLOGY DRUG SCREEN, URIN Harpreet 09-21-2023 Amphetamine (U) [Mass/Vol] Negative NEGATIVE NG/ML [facility] Comment on above: <500 ng/ml CUTOFF Barbiturates Screen Ql (U) Negative NEGATIVE NG/ML [facility] Comment on above: <200 ng/ml CUTOFF Benzodiazepines Ql (U) Positive Abnormal NEGAT RAJAN NG/ML [facility] Comment on above: <200 ng/ml CUTOFF *Unconfirmed Screening Result* Unconfirmed screening results are to be used only for medical treatment purposes. Benzoylecgonine Ql (U) Negative NEGAT RAJAN NG/ML [facility] Comment on above: <150 ng/ml CUTOFF Buprenorphine Ql (U) Negative NEGATIV E NG/ML [facility] Comment on above: <12.5 ng/ml CUTOFF Cannabinoids Screen Ql (U) Negative NEGATIVE NG/ML [facility] Comment on above: <50 ng/ml CUTOFF Fentanyl Negative NEGATIVE NG/ML [facility] Comment on above: 20 ng/mL CUTOFF *Unconfirmed Screening Result* Unconfirmed screening results are to be used only for medical treatment purposes. This test has not been approved by the FDA. Interpretation and review of laboratory results Abnormal [facility] Methadone Screen Ql (U) Negative NEGATIVE NG/ML [facility] [employer] [facility] Comment on above: Methadone Metabolite <100 ng/ml CUTOFF Methamphetamine (U) [Mass/Vol] Negative NEGATIVE NG/ML [facility] Comment on above: <500 ng/ml CUTOFF Methylenedioxymethamph etamine Ql (Unsp spec) Positive Abnormal NEGATIVE NG/ML [facility] Comment on above: <1000 ng/ml CUTOFF Opiates Screen Ql (U) Negative NEGATI VE NG/ML [facility] Comment on above: <300 ng/ml CUTOFF oxyCODONE Ql (U) Negative NEGATIVE NG/ML [facility] Comment on above: <100 ng/ml CUTOFF Tricyclic antidepressants Screen Ql (U) Negative NEGATIVE NG/ML [facility] Comment on above: <1000 ng/ml CUTOFF [facility] URINALYSIS, MACROon 09-21-20 23 Bilirubin Ql (U) Negative NEGATIVE [facility] Clarity (U) CLEAR CLEAR [facility] Color (U) YELLOW YELLOW [facility] Glucose Test strip (U) [Mass/Vol] 500 mg/dl Abnormal NEGATIVE [facility] Hemoglobin Ql (U) MODERATE Abnormal NEGATIVE [facility] Ketones (U) [Mass/Vol] 15 mg/dL Ab[facility] Leukocyte esterase Test strip Ql (U) Negative NEGATIVE [facility] Nitrite Ql (U) Negative NEGATIVE [facility] pH (U) 5.5 [pH] 5.0 - 7.0 [facility] Protein Ql (U) >300 Abnormal NEGATIVE mg/dl [facility] Specific gravity (U) [Rel density] >1.030 High 1.010 - 1.025 [facility] Urobilinogen (U) [Mass/Vol] 0.2 mg/dL [facility] URINE CULTUREon 09-21-2023 Bacteria identified Cx Nom (U) SPECIMEN DESCRIPTION URINE - OTHER CULTURE NO GROWTH 2 DAYS * Result Note: Testing performed at [place] [address] * REPORT STATUS 09/23/2023 * Result Note: FINAL * Normal [facility] Comment on above: Performed By: #### A URNC #### [place] [address] [place] [address] URINE MACROSCOPICon 09-21-20 23 Bilirubin Ql (U) Negative Normal NEGATIVE [facility] Clarity (U) CLEAR Normal CLEAR [facility] Color (U) YELLOW Normal YELLOW [facility] Glucose Ql (U) 500 mg/dl Abnormal NEGATIVE [facility] pH (U) 5.5 [pH] Normal 5.0-7.0 [facility] URINE HEMOGLOBIN MODERATE Abnormal NEGATIVE [facility] URINE KETONE 15 mg/dl Abnormal NEGATIVE [facility] URINE LEUKOTEST Negative Normal NEGATIVE [facility] URINE NITRATES Negative Normal NEGATIVE [facility] URINE SPEC GRAVITY >1.030 High 1.010-1.025 [facility] URINE TOTAL PROTEIN >300 Abnormal NEGATIVE [facility] Urobilinogen Qn (U) 0.2 {Rachana'U}/dL Normal 0.2-1.0 [facility] URINE MICROSCOPICon 09-21-20 23 BACTERIA TRACE Abnormal NEGATIVE [facility] CASTS NONE Normal NONE [facility] CRYSTAL NONE Normal NONE [facility] Epithelial cells LM Ql (Urine sed) NONE Normal [facility] Mucus Ql (Urine sed) Negative Normal NEGATIVE [facility] URINE COMMENT REFLEX CULTURE PER ESTABLISHED CRITERIA. Normal [facility] URINE RBC'S 1 TO 5 Normal NEGATIVE [facility] URINE WBC'S Negative Normal NEGATIVE [facility] Bacteria LM.HPF (Urine sed) [#/Area] TRACE Abnormal NEGATIVE [facility] Casts LM.LPF (Urine sed) [#/Area] NONE NONE /LPF [facility] Crystals LM Nom (Urine sed) NONE NONE [facility] Epithelial cells LM Ql (Urine sed) NONE /HPF [facility] Mucus Ql (Urine sed) Negative NEGATIVE [facility] RBC LM.HPF (Urine sed) [#/Area] 1 TO 5 NEGATIVE /HPF [facility] Urine sediment comments LM Everardo (Urine sed) REFLEX CULTURE PER ESTABLISHED CRITERIA. [facility] WBC LM.HPF (Urine sed) [#/Area] Negative NEGATIVE /HPF [facility] VENTILATOR SETTINGSon 2022 F RATE 16 breaths/minute Normal [facility] fiO2 100 % Normal [facility] PEEP 5 cmH2O Normal [facility] VENT SETTING [facility] Normal [facility] [place] 500 cc [facility] BIPAP AndOr CPAP setting Ventilator [facility] Oxygen/Inspired gas setting [Volume Fraction] Ventilator 100 % [facility] Positive end expiratory pressure setting Ventilator 5 cmH2O [facility] Respiratory rate 16 /min breaths/min u te [facility] Tidal volume setting Ventilator 500 cc [facility] XR CHEST AP PORTABLEon 09-21 XR CHEST AP PORTABLE EXAM: XR CHEST AP PORTABLE REASON FOR EXAM: ET placement TECHNIQUE: Single frontal view COMPARISON: None FINDINGS: Endotracheal tube terminates 3.4 cm above the ravindra. No pneumothorax, pleural effusion, or focal consolidation. The cardiac silhouette is not enlarged. IMPRESSION: Appropriate positioning of the endotracheal tube. No acute cardiopulmonary abnormality. Normal [facility] Diabetic Office/Clinic Noteo n 05-13-2023 Diabetic Office/Clinic Note History of Present Illness 47-year-old male here for follow-up for [...] repeat rule of 15's. -Continue to eat [phone] calories per day. Best to consume calories [...] blood sugar readings and call these to [phone] in 2 weeks for myself to review. Call sooner if you're experiencing frequent blood sugars <60 or >350. -Repeat A1c and appointment with myself in 3 months or sooner if needed aJrod Aviles CNP [facility] [address], [place] [address] Time Spent with the Patient I have [...] 0.5 mg, Subcutaneous, Weekly, 11 refills Pen [place], See Instructions, 11 refills Toujeo Max SoloStar 300 units/mL subcutaneous solution, See Instructions, 11 refills Allergies No Known Medication Allergies Social History Alcohol Never Tobacco N (more content not included)... Normal [facility] Diabetic Office/Clinic Noteo n 02-11-2023 Diabetic Office/Clinic Note Chief Complaint Patient is establishing with Jarod Aviles for care of diabetes History of Present Illness PCP ? Dr. Vincent Winters This is a 47-year-old male that [...] of breath, vision changes, headaches. Complications No retinopathy/blindness. Last dilated eye exam 2021 No kidney disease (GFR <60 or urine MA >30) Mild symptomatic peripheral neuropathy no medications No symptomatic autonomic neuropathy (gastroparesis, bladder dysfunction, orthostatic hypotension) No symptomatic VD or amputations. Right leg wound which has healed. No longer needs wound care Yes HTN, taking lisinopril No CAD, MS, CVA, CHF or PVD Statin indicated, taking simvastatin 20 mg ASA 75-162 mg indicated, taking 81 mg daily Non smoker Not prone to yeast, urine, bladder or kidney infections No history of medullary thyroid cancer, multiple endocrine neoplasia type II, pancreatitis, severe hypertriglyceridemia, gallstones or excessive alcohol use Current Treatment: [...] heart attack, stroke and limb amputation -Eat [phone] calories per day or less using a [...] plate starchy vegetables or grains. Recommend using [employer] or similar type pat to track daily calories and activity. -Exercise [...] range > (more content not included)... Normal [facility] CBC AUTO DIFFon 12-28-2022 BASO # 0.0 103/ul Normal 0.0-0.1 [facility] Comment on above: Performed By: #### P OCGLUC #### [facility] [address] [place] [address] [address] Karina Heath Basophils/100 WBC (Bld) 0.6 % Normal 0.2-2.0 [facility] Comment on above: Performed By: #### P OCGLUC #### [facility] [address] [place], [place] [address] Dr. Karina Heath EO # 0.1 103/ul Normal 0.0-0.7 [facility] Comment on above: Performed By: #### P OCGLUC #### [facility] [address] [place] [address] Dr. Karina Heath Eosinophils/100 WBC (Bld) 1.1 % Normal 0.9-7.0 [facility] Comment on above: Performed By: #### P OCGLUC #### [facility] [address] [place] [address] Dr. Karina Heath Erythrocyte distribution width (RBC) [Ratio] 13.5 % Normal 11.0-15.0 [facility] Comment on above: Performed By: #### P OCGLUC #### [facility] [address] [place] [address] Dr. Karina Heath Hematocrit (Bld) [Volume fraction] 35.2 % Critically low 42.0-54.0 [facility] Comment on above: Performed By: #### P OCGLUC #### [facility] [address] [place] [address] Dr. Karina Heath Hemoglobin (Bld) [Mass/Vol] 12.0 g/dL Critically low 14.0-18.0 [facility] Comment on above: Performed By: #### P OCGLUC #### [facility] [address] [place] [address] Dr. Karina Heath IG # 0.02 10e3/ul Normal 0.00-0.03 [facility] Comment on above: Performed By: #### P OCGLUC #### [facility] [address] [place] [address] Dr. Karina Heath IG % 0.3 % Normal 0.0-0.5 [facility] Comment on above: Performed By: #### P OCGLUC #### [facility] [address] [place] [address] Dr. Karina Heath LYMPH # 1.7 103/ul Normal 1.2-3.8 [facility] Comment on above: Performed By: #### P OCGLUC #### [facility] [address] [place] [address] Dr. Karina Heath Lymphocytes/100 WBC (Bld) 26.3 % Normal 20.5-60.0 [facility] Comment on above: Performed By: #### P OCGLUC #### [facility] [address] [place] [address] Dr. Karina Heath MANUAL DIFF REQ NO Normal [facility] Comment on above: Performed By: #### P OCGLUC #### [facility] [address] [place] [address] Dr. Karina Heath MCH (RBC) [Entitic mass] 28.6 pg Normal 25.9-34.0 [facility] Comment on above: Performed By: #### P OCGLUC #### [facility] [address] [place] [address] Dr. Karina Heath MCHC (RBC) [Mass/Vol] 34.1 g/dL Normal 29.9-35.2 [facility] Comment on above: Performed By: #### P OCGLUC #### [facility] [address] [place] [address] Dr. Karina Heath MCV (RBC) [Entitic vol] 83.8 fL Normal 80.0-94.0 [facility] Comment on above: Performed By: #### P OCGLUC #### [facility] [address] [place] [address] Dr. Karina Heath MONO # 0.5 103/ul Normal 0.3-0.8 [facility] Comment on above: Performed By: #### P OCGLUC #### [facility] [address] [place] [address] Dr. Karina Heath Monocytes/100 WBC (Bld) 7.0 % Normal 1.7-12.0 [facility] Comment on above: Performed By: #### P OCGLUC #### [facility] [address] [place] [address] Dr. Karina Heath NEUT # 4.2 103/ul Normal 1.4-6.5 [facility] Comment on above: Performed By: #### P OCGLUC #### [facility] [address] [place] [address] Dr. Karina Heath Neutrophils/100 WBC (Bld) 64.7 % Normal 43.0-75.0 [facility] Comment on above: Performed By: #### P OCGLUC #### [facility] [address] [place] [address] [address] Karina Heath Platelet mean volume (Bld) [Entitic vol] 10.3 fL Normal 9.5-13.5 [facility] Comment on above: Performed By: #### P OCGLUC #### [facility] [address] [place] [address] [address] Karina Heath PLT 189 103/ul Normal 150-450 [facility] Comment on above: Performed By: #### P OCGLUC #### [facility] [address] [place] [address] [address] Karina Heath RBC 4.20 106/ul Critically low 4.70-6.10 [facility] Comment on above: Performed By: #### P OCGLUC #### [facility] [address] [place] [address] [address] Karina Heath WBC 6.4 103/ul Normal 4.0-11.0 [facility] Comment on above: Performed By: #### P OCGLUC #### [facility] [address] [place] [address] Dr. Karina Heath ECHOCARDIO M/2D COMPLETEon 0 12-28-2022 ECHOCARDIO M/2D COMPLETE Patient: ORTIZ GORMAN Exam Date: 12/28/2022 : 1975 Gender:M Ordering : DR VINCENT WINTERS . Admission #: [id number] Family : Order #: [id number] CLICK HERE TO VIEW EXAM ECHOCARDIOGRAM REPORT [...] Sibley M.D. on 12/28/2022 at 17:50 Normal [facility] POINT OF CARE GLUCOSEon 12-15 Glucose [Mass/Vol] 229 mg/dL Critically high 74-106 [facility] Comment on above: Performed By: #### P OCGLUC #### [facility] [address] [place] [address] [address] Karina Heath Glucose [Mass/Vol] 171 mg/dL Critically high -106 [facility] Comment on above: Performed By: #### C VDTBH #### [facility] [address] [place] [address] [address] Karina Heath Glucose [Mass/Vol] 242 mg/dL Critically high [facility]106 [facility] Comment on above: Performed By: #### C VDTBH #### [facility] [address] [place] [address] [address] Karina Heath PROF 14(COMP METB)on 023 Albumin [Mass/Vol] 3.0 g/dL Critically low 3.4-5.0 [facility] Comment on above: Performed By: #### P OCGLUC #### [facility] [address] [place] [address] [address] Karina Heath Albumin/Globulin [Mass ratio] 0.9 {ratio} [facility] Comment on above: Performed By: #### P OCGLUC #### [facility] [address] [place] [address] [address] Karina Heath ALP [Catalytic activity/Vol] 79 U/L Normal 46-116 [facility] Comment on above: Performed By: #### P OCGLUC #### [facility] [address] [place] [address] [address] Karina Heath ALT [Catalytic activity/Vol] 27 U/L Normal 16-63 [facility] Comment on above: Performed By: #### P OCGLUC #### [facility] [address] [place] [address] [address] Karina Heath Anion gap [Moles/Vol] 9.4 mmol/L Normal [facility] Comment on above: Performed By: #### P OCGLUC #### [facility] [address] [place] [address] [address] Karina Heath AST [Catalytic activity/Vol] 21 U/L Normal 15-37 [facility] Comment on above: Performed By: #### P OCGLUC #### [facility] [address] [place] [address] [address] Karina Heath Bilirubin [Mass/Vol] 0.2 mg/dL Normal 0.2-1.0 [facility] Comment on above: Performed By: #### P OCGLUC #### [facility] [address] [place] [address] [address] Karina Heath Calcium [Mass/Vol] 8.6 mg/dL Normal 8.5-10.1 [facility] Comment on above: Performed By: #### P OCGLUC #### [facility] [address] [place] [address] [address] Karina Heath Chloride [Moles/Vol] 104 mmol/L Normal 98-107 [facility] Comment on above: Performed By: #### P OCGLUC #### [facility] [address] [place] [address] [address] Karina Heath CO2 [Moles/Vol] 26.9 mmol/L Normal 21.0-32.0 [facility] Comment on above: Performed By: #### P OCGLUC #### [facility] [address] [place] [address] [address] Karina Heath Creatinine [Mass/Vol] 0.95 mg/dL Normal 0.70-1.30 [facility] Comment on above: Performed By: #### P OCGLUC #### [facility] [address] [place] [address] [address] Karina Heath EGFR-AF BAHAMIAN >60 Normal >=60 [facility] Comment on above: Performed By: #### P OCGLUC #### [facility] [address] [place] [address] [address] Karina Heath EGFR-NON AF BAHAMIAN >60 Normal >=60 [facility] Comment on above: Performed By: #### P OCGLUC #### [facility] [address] [place] [address] [address] Karina Heath Globulin (S) [Mass/Vol] 3.2 g/dL Normal [facility] Comment on above: Performed By: #### P OCGLUC #### [facility] [address] [place] [address] [address] Karina Heath Glucose [Mass/Vol] 258 mg/dL Critically high 74-106 [facility] Comment on above: Performed By: #### P OCGLUC #### [facility] [address] [address] [address] Karina Heath Potassium [Moles/Vol] 3.3 mmol/L Critically low 3.5-5.1 [facility] Comment on above: Performed By: #### P OCGLUC #### [facility] [address] [place] [address] Dr. Karina Heath Protein [Mass/Vol] 6.2 g/dL Critically low 6.4-8.2 [facility] Comment on above: Performed By: #### P OCGLUC #### [facility] [address] [address] [address] Karina Heath Sodium [Moles/Vol] 137 mmol/L Normal 136-145 [facility] Comment on above: Performed By: #### P OCGLUC #### [facility] [address] [place] [address] Dr. Karina Heath Urea nitrogen [Mass/Vol] 16.0 mg/dL Normal 7.0-18.0 [facility] Comment on above: Performed By: #### P OCGLUC #### [facility] [address] [address] [address] Karina Heath Urea nitrogen/Creatinine [Mass ratio] 16.8 mg/mg Normal [facility] Comment on above: Performed By: #### P OCGLUC #### [facility] [address] [address] [address] Karina Heath CBC AUTO DIFFon 12-27-2022 BASO # 0.0 103/ul Normal 0.0-0.1 [facility] Comment on above: Performed By: #### C BC #### [facility] [address] [address] [address] Karina Heath Basophils/100 WBC (Bld) 0.5 % Normal 0.2-2.0 [facility] Comment on above: Performed By: #### C BC #### [facility] [address] [address] [address] Karina Heath EO # 0.1 103/ul Normal 0.0-0.7 [facility] Comment on above: Performed By: #### C BC #### [facility] [address] [place] [address] Dr. Karina Heath Eosinophils/100 WBC (Bld) 0.8 % Critically low 0.9-7.0 [facility] Comment on above: Performed By: #### C BC #### [facility] [address] [place] [address] Dr. Karina Heath Erythrocyte distribution width (RBC) [Ratio] 13.2 % Normal 11.0-15.0 [facility] Comment on above: Performed By: #### C BC #### [facility] [address] [place] [address] Dr. Karina Heath Hematocrit (Bld) [Volume fraction] 37.1 % Critically low 42.0-54.0 [facility] Comment on above: Performed By: #### C BC #### [facility] [address] [place] [address] Dr. Karina Heath Hemoglobin (Bld) [Mass/Vol] 13.0 g/dL Critically low 14.0-18.0 [facility] Comment on above: Performed By: #### C BC #### [facility] [address] [place] [address] Dr. Karina Heath IG # 0.03 10e3/ul Normal 0.00-0.03 [facility] Comment on above: Performed By: #### C BC #### [facility] [address] [place] [address] Dr. Karina Heath IG % 0.4 % Normal 0.0-0.5 [facility] Comment on above: Performed By: #### C BC #### [facility] [address] [place] [address] Dr. Karina Heath LYMPH # 1.2 103/ul Normal 1.2-3.8 [facility] Comment on above: Performed By: #### C BC #### [facility] [address] [place] [address] Dr. Karina Heath Lymphocytes/100 WBC (Bld) 15.3 % Critically low 20.5-60.0 [facility] Comment on above: Performed By: #### C BC #### [facility] [address] [place] [address] Dr. Karina Heath MANUAL DIFF REQ NO Normal [facility] Comment on above: Performed By: #### C BC #### [facility] [address] [place] [address] Dr. Karina Heath MCH (RBC) [Entitic mass] 28.7 pg Normal 25.9-34.0 [facility] Comment on above: Performed By: #### C BC #### [facility] [address] [place] [address] Dr. Karina Heath MCHC (RBC) [Mass/Vol] 35.0 g/dL Normal 29.9-35.2 [facility] Comment on above: Performed By: #### C BC #### [facility] [address] [place] [address] Dr. Karina Heath MCV (RBC) [Entitic vol] 81.9 fL Normal 80.0-94.0 [facility] Comment on above: Performed By: #### C BC #### [facility] [address] [place] [address] Dr. Karina Heath MONO # 0.6 103/ul Normal 0.3-0.8 [facility] Comment on above: Performed By: #### C BC #### [facility] [address] [place] [address] Dr. Karina Heath Monocytes/100 WBC (Bld) 7.1 % Normal 1.7-12.0 [facility] Comment on above: Performed By: #### C BC #### [facility] [address] [place] [address] Dr. Karina Heath NEUT # 5.8 103/ul Normal 1.4-6.5 [facility] Comment on above: Performed By: #### C BC #### [facility] [address] [address] [address] Karina Heath Neutrophils/100 WBC (Bld) 75.9 % Critically high 43.0-75.0 [facility] Comment on above: Performed By: #### C BC #### [facility] [address] [place] [address] Dr. Karina Heath Platelet mean volume (Bld) [Entitic vol] 9.6 fL Normal 9.5-13.5 [facility] Comment on above: Performed By: #### C BC #### [facility] [address] [place] [address] Dr. Karina Heath PLT 200 103/ul Normal 150-450 [facility] Comment on above: Performed By: #### C BC #### [facility] [address] [place] [address] Dr. Karina Heath RBC 4.53 106/ul Critically low 4.70-6.10 [facility] Comment on above: Performed By: #### C BC #### [facility] [address] [place] [address] Dr. Karina Heath WBC 7.7 103/ul Normal 4.0-11.0 [facility] Comment on above: Performed By: #### C BC #### [facility] [address] [place] [address] STROKE HEAD WOon 12-28-[address] STROKE HEAD WO EXAMINATION: CT STRO KE HEAD WO HISTORY: Aphasia . Confusion. Difficulty [...] ANNI NOYOLA Date: 2022-12-27 14:03 Normal [facility] CTA HEAD WO W CONon 12-28-19 CTA HEAD WO W CON EXAMINATION: CTA HEA D WO W CON, CTA NECK WO W [...] by: JACOB VARGAS Date: 2022-12-27 14:55 Normal [facility] Covid-19 PCR (CVDTB)on 12-15 SARS-CoV-2 (COVID-19) RNA MEETA+probe Ql (Unsp spec) Not detected Normal NOT DETECTED [facility] Comment on above: Result Comment: When [...] for this test is supported by the [place] of [employer] and Human Service's declaration [...] used). Performed By: #### C VDTBH #### [facility] [address] [place] [address] Dr. Karina Heath DRUG SCREEN RAPID (URINE)on 12-27-2022 AMP Negative Normal NEGATIVE [facility] Comment on above: Performed By: #### C BC #### [facility] [address] [place] [address] Dr. Karina Heath BAR Negative Normal NEGATIVE [facility] Comment on above: Performed By: #### C BC #### [facility] [address] [place] [address] Dr. Karina Heath BUP Negative Normal NEGATIVE [facility] Comment on above: Performed By: #### C BC #### [facility] [address] [place] [address] Dr. Karina Heath BZO Negative Normal NEGATIVE [facility] Comment on above: Performed By: #### C BC #### [facility] [address] [place] [address] Dr. Karina Heath VALERY Negative Normal NEGATIVE [facility] Comment on above: Performed By: #### C BC #### [facility] [address] [place] [address] Dr. Karina Heath CUT-OFFS SEE BELOW Normal [facility] Comment on above: Result Comment: AMP [...] ng/mL Performed By: #### C BC #### [facility] [address] [place] [address] Dr. Karina Heath DRUG CUT HEADER DRUG CLASS TEST SYST EM CUT-OFF CONCENTRATIONS ARE FOLLOWS: Normal [facility] Comment on above: Performed By: #### C BC #### [facility] [address] [place] [address] Dr. Karina Heath mAMP Negative Normal NEGATIVE [facility] Comment on above: Performed By: #### C BC #### [facility] [address] [place] [address] Dr. Karina Heath MTD Negative Normal NEGATIVE [facility] Comment on above: Performed By: #### C BC #### [facility] [address] [place] [address] Dr. Karina Heath OPI Negative Normal NEGATIVE [facility] Comment on above: Performed By: #### C BC #### [facility] [address] [place] [address] Dr. Karina Heath OXY Negative Normal NEGATIVE [facility] Comment on above: Performed By: #### C BC #### [facility] [address] [place] [address] Dr. Karina Heath PCP Negative Normal NEGATIVE [facility] Comment on above: Performed By: #### C BC #### [facility] [address] [place] [address] Dr. Karina Heath PPX Negative Normal NEGATIVE [facility] Comment on above: Performed By: #### C BC #### [facility] [address] [place] [address] Dr. Karina Heath TCA Negative Normal NEGATIVE [facility] Comment on above: Performed By: #### C BC #### [facility] [address] [place] [address] Dr. Karina Heath THC Negative Normal NEGATIVE [facility] Comment on above: Performed By: #### C BC #### [facility] [address] [address] [address] Karina HERNDON URINE PROFILEon 3 Bilirubin Ql (U) Negative Normal NEGATIVE [facility] Comment on above: Performed By: #### P OCGLUC #### [facility] [address] [place] [address] Dr. Karina Heath Clarity (U) CLEAR Normal CLEAR [facility] Comment on above: Performed By: #### P OCGLUC #### [facility] [address] [place] [address] Dr. Karina Heath Color (U) LT. YELLOW Normal YELLOW [facility] Comment on above: Performed By: #### P OCGLUC #### [facility] [address] [place] [address] Dr. Karina GLASGOW A micrscopic examination will be performed if indicated. Normal [facility] Comment on above: Performed By: #### P OCGLUC #### [facility] [address] [place] [address] Dr. Karina Heath Glucose Ql (U) >1000 Abnormal NEGATIVE [facility] Comment on above: Performed By: #### P OCGLUC #### [facility] [address] [place] [address] Dr. Karina Heath Hemoglobin Ql (U) TRACE-INTACT Abnormal NEGATIVE [facility] Comment on above: Performed By: #### P OCGLUC #### [facility] [address] [address] [address] Karina Heath Ketones Ql (U) TRACE Abnormal NEGATIVE [facility] Comment on above: Performed By: #### P OCGLUC #### [facility] [address] [place] [address] Dr. Karina Heath LEUKOCYTES Negative Normal NEGATIVE [facility] Comment on above: Performed By: #### P OCGLUC #### [facility] [address] [place] [address] Dr. Karina Heath Nitrite Ql (U) Negative Normal NEGATIVE [facility] Comment on above: Performed By: #### P OCGLUC #### [facility] [address] [address] [address] Karina Heath pH (U) 7.0 [pH] Normal 5-9 [facility] Comment on above: Performed By: #### P OCGLUC #### [facility] [address] [address] [address] Karina Heath Protein (U) [Mass/Vol] 100 mg/dL Abnormal NEGAT RAJAN/ TRACE [facility] Comment on above: Performed By: #### P OCGLUC #### [facility] [address] [place] [address] Dr. Karina Heath SPEC GRAVITY 1.010 Normal 1.005-<=1.02 5 [facility] Comment on above: Performed By: #### P OCGLUC #### [facility] [address] [place] [address] Dr. Karina Heath UR MICRO IND INDICATED Normal [facility] Comment on above: Performed By: #### P OCGLUC #### [facility] [address] [place] [address] Dr. Karina Heath Urobilinogen Qn (U) 0.2 {Rachana'U}/dL Normal 0.2 - 1. 0 [facility] Comment on above: Performed By: #### P OCGLUC #### [facility] [address] [place] [address] Dr. Karina Heath POINT OF CARE GLUCOSEon 12-15 Glucose [Mass/Vol] 233 mg/dL Critically high 74-106 [facility] Comment on above: Performed By: #### P OCGLUC #### [facility] [address] [place] [address] Dr. Karina Heath Glucose [Mass/Vol] 199 mg/dL Critically high 74-106 [facility] Comment on above: Performed By: #### P OCGLUC #### [facility] [address] [place] [address] Dr. Karina Heath PROF 14(COMP METB)on 023 Albumin [Mass/Vol] 3.4 g/dL Normal 3.4-5.0 [facility] Comment on above: Performed By: #### P OCGLUC #### [facility] [address] [address] [address] Karina Heath Albumin/Globulin [Mass ratio] 1.0 {ratio} Normal [facility] Comment on above: Performed By: #### P OCGLUC #### [facility] [address] [address] [address] Karina Heath ALP [Catalytic activity/Vol] 100 U/L Normal 46-116 [facility] Comment on above: Performed By: #### P OCGLUC #### [facility] [address] [address] [address] Karina Heath ALT [Catalytic activity/Vol] 31 U/L Normal 16-63 [facility] Comment on above: Performed By: #### P OCGLUC #### [facility] [address] [address] [address] Karina Heath Anion gap [Moles/Vol] 10.5 mmol/L Normal [facility] Comment on above: Performed By: #### P OCGLUC #### [facility] [address] [address] [address] Karina Heath AST [Catalytic activity/Vol] 18 U/L Normal 15-37 [facility] Comment on above: Performed By: #### P OCGLUC #### [facility] [address] [address] [address] Karian Heath Bilirubin [Mass/Vol] 0.2 mg/dL Normal 0.2-1.0 [facility] Comment on above: Performed By: #### P OCGLUC #### [facility] [address] [address] [address] Karina Heath Calcium [Mass/Vol] 9.0 mg/dL Normal 8.5-10.1 [facility] Comment on above: Performed By: #### P OCGLUC #### [facility] [address] [address] [address] Karina Heath Chloride [Moles/Vol] 96 mmol/L Critically low 98-107 [facility] Comment on above: Performed By: #### P OCGLUC #### [facility] [address] [address] [address] Karina Heath CO2 [Moles/Vol] 29.1 mmol/L Normal 21.0-32.0 [facility] Comment on above: Performed By: #### P OCGLUC #### [facility] [address] [address] [address] Karina Heath Creatinine [Mass/Vol] 0.91 mg/dL Normal 0.70-1.30 [facility] Comment on above: Performed By: #### P OCGLUC #### [facility] [address] [address] [address] Karina Heath EGFR-AF BAHAMIAN >60 Normal >=60 [facility] Comment on above: Performed By: #### P OCGLUC #### [facility] [address] [address] [address] Karina Heath EGFR-NON AF BAHAMIAN >60 Normal >=60 [facility] Comment on above: Performed By: #### P OCGLUC #### [facility] [address] [address] [address] Karina Heath Globulin (S) [Mass/Vol] 3.5 g/dL Normal [facility] Comment on above: Performed By: #### P OCGLUC #### [facility] [address] [address] [address] Karina Heath Glucose [Mass/Vol] 214 mg/dL Critically high 74-106 [facility] Comment on above: Performed By: #### P OCGLUC #### [facility] [address] [address] [address] Karina Heath Potassium [Moles/Vol] 3.6 mmol/L Normal 3.5-5.1 [facility] Comment on above: Performed By: #### P OCGLUC #### [facility] [address] [address] [address] Karina Heath Protein [Mass/Vol] 6.9 g/dL Normal 6.4-8.2 [facility] Comment on above: Performed By: #### P OCGLUC #### [facility] [address] [place] [address] Dr. Karina Heath Sodium [Moles/Vol] 132 mmol/L Critically low 136-145 [facility] Comment on above: Performed By: #### P OCGLUC #### [facility] [address] [place] [address] Dr. Karina Heath Urea nitrogen [Mass/Vol] 27.0 mg/dL Critically high 7.0-18.0 [facility] Comment on above: Performed By: #### P OCGLUC #### [facility] [address] [place] [address] Dr. Karina Heath Urea nitrogen/Creatinine [Mass ratio] 29.7 mg/mg Normal [facility] Comment on above: Performed By: #### P OCGLUC #### [facility] [address] [place] [address] Dr. Karina Heath PROTIMEon 12-27-2022 INR Coag (PPP) [Relative time] {INR} Normal [facility] Comment on above: Performed By: #### P TT, PT #### [facility] [address] [place] [address] Dr. Karina Heath INR GUIDELINES SEE BELOW Normal [facility] Comment on above: Result Comment: LINDA RED INR: 2.0 - 3.0 CONDITIONS NOT LISTED BELOW 2.5 - 3.5 FOR PROSTHETIC HEART VALVE REPLACEMENT 2.5 - 3.5 RECURRENT THROMBOSIS Performed By: #### P TT, PT #### [facility] [address] [place] [address] Dr. Karina Heath PT Coag (PPP) [Time] 9.8 s Normal 9.0-11.6 [facility] Comment on above: Performed By: #### P TT, PT #### [facility] [address] [place] [address] Dr. Karina Heath PTTon 12-27-2022 aPTT Coag (Bld) [Time] 24.3 s Normal 22.3-36.2 [facility] Comment on above: Performed By: #### P TT, PT #### [facility] [address] [place] [address] Dr. Karina Heath TROPONIN, HIGH SENSITIVITYon 12-27-2022 HSTROP 5.5 pg/mL Normal 4.0-76.1 [facility] Comment on above: Result Comment: CUT- OFF POINTS HAVE BEEN ESTABLISHED BASED ON THE FOURTH UNIVERSAL DEFINITIONS OF MYOCARDIAL INFARCTION. THE UPPER REFERENCE LIMIT (URL) OF TROPONIN, DEFINED THE 99TH PERCENTILE OF cTnI DISTRIBUTION IN A REFERENCE POPULATION, HAS BEEN CONFIRMED THE DECISION THRESHOLD FOR MS DIAGNOSIS. Performed By: #### P OCGLUC #### [facility] [address] [place] [address] Dr. Karina Heath TSHon 12-27-2022 TSH 0.848 uIU/mL Normal 0.358-3.740 [facility] Comment on above: Performed By: #### P OCGLUC #### [facility] [address] [place] [address] Dr. Karina Heath URINE MICROSCOPIC ONLYon BACTERIA NONE SEEN Normal NONE SEEN [facility] Comment on above: Performed By: #### P OCGLUC #### [facility] [address] [place] [address] Dr. Karina Heath Bacteria identified Cx Nom (U) NOT INDICATED Normal [facility] Comment on above: Performed By: #### P OCGLUC #### [facility] [address] [place] [address] Dr. Karina Heath CAST NONE SEEN Normal NONE SEEN [facility] Comment on above: Performed By: #### P OCGLUC #### [facility] [address] [place] [address] Dr. Karina Heath Crystals LM Nom (Urine sed) NONE SEEN Normal NONE SEEN [facility] Comment on above: Performed By: #### P OCGLUC #### [facility] [address] [place] [address] Dr. Karina Heath Epithelial cells LM Ql (Urine sed) NONE SEEN Normal NONE SEEN /RARE [facility] Comment on above: Performed By: #### P OCGLUC #### [facility] [address] [place] [address] Dr. Karina Heath MUCOUS NONE SEEN Normal NONE SEEN [facility] Comment on above: Performed By: #### P OCGLUC #### [facility] [address] [address] [address] Karina Heath RBC 0-2 Normal 0-2 [facility] Comment on above: Performed By: #### P OCGLUC #### [facility] [address] [address] [address] Karina Heath WBC NONE SEEN Normal NONE SEEN [facility] Comment on above: Performed By: #### P OCGLUC #### [facility] [address] [address] [address] Karina Heath XR CHEST 1 Von 12-27-2022 XR CHEST 1 V EXAM: XR CHEST 1 V HISTORY: Aphasia COMPARISON: None. TECHNIQUE: AP upright portable. FINDINGS: Cardiomediastinal silhouette and pulmonary vascularity are within normal limits. Lungs and the costophrenic angles are clear. IMPRESSION: No acute cardiopulmonary disease. Electronically authenticated by: ANNI NOYOLA Date: 2022-12-27 14:03 Normal [facility] ACID FAST SMEAR AND CXon Acid Fast Culture Negative Normal [facility] Comment on above: Result Comment: No a martin fast bacilli isolated after 6 weeks. Performed By: #### A FB #### [facility] [address] [place] [address] Dr. Karina Heath Acid Fast Smear Negative Normal [facility] Comment on above: Performed By: #### A FB #### [facility] [address] [place] [address] Dr. Karina Heath AFB Specimen Processing Direct Inoculation Normal [facility] Comment on above: Performed By: #### A FB #### [facility] [address] [place] [address] Dr. Karina Heath FUNGAL CULTUREon 11-12-2022 Fungus (Mycology) Culture Final report Normal [facility] Comment on above: Performed By: #### C BC #### [facility] [address] [place] [address] Dr. Karina Heath Fungus Stain Final report Normal [facility] Comment on above: Performed By: #### C BC #### [facility] [address] [place] [address] Dr. Karina Heath Result 1 Comment Normal [facility] Comment on above: Result Comment: MYNOR/ Calcofluor preparation: no fungus observed. Performed By: #### C BC #### [facility] [address] [place] [address] Dr. Karina Heath Result Comment: No y [...] <=0.25 S F Clindamycin <=0.25 S F Quinupristin/Dalfoprist in <=0.25 S F Linezolid 1 S F Vancomycin <=0.5 S F Tetracycline <=1 S F Rifampicin <=0.5 S F Trimethoprim/Sulfametho xazole <=10 S F Normal [facility] Comment on above: Performed By: #### P OCGLUC #### [facility] [address] [place] [address] Dr. Karina Heath CBC AUTO DIFFon 10-15-2022 BASO # 0.0 103/ul Normal 0.0-0.1 [facility] Comment on above: Performed By: #### C BC #### [facility] [address] [place] [address] Dr. Karina Heath Basophils/100 WBC (Bld) 0.5 % Normal 0.2-2.0 [facility] Comment on above: Performed By: #### C BC #### [facility] [address] [place] [address] Dr. Karina Heath EO # 0.1 103/ul Normal 0.0-0.7 [facility] Comment on above: Performed By: #### C BC #### [facility] [address] [place] [address] Dr. Karina Heath Eosinophils/100 WBC (Bld) 1.5 % Normal 0.9-7.0 [facility] Comment on above: Performed By: #### C BC #### [facility] [address] [place] [address] Dr. Karina Heath Erythrocyte distribution width (RBC) [Ratio] 12.4 % Normal 11.0-15.0 [facility] Comment on above: Performed By: #### C BC #### [facility] [address] [place] [address] Dr. Karina Heath Hematocrit (Bld) [Volume fraction] 33.1 % Critically low 42.0-54.0 [facility] Comment on above: Performed By: #### C BC #### [facility] [address] [place] [address] Dr. Karina Heath Hemoglobin (Bld) [Mass/Vol] 11.0 g/dL Critically low 14.0-18.0 [facility] Comment on above: Performed By: #### C BC #### [facility] [address] [place] [address] Dr. Karina Heath IG # 0.03 10e3/ul Normal 0.00-0.03 [facility] Comment on above: Performed By: #### C BC #### [facility] [address] [place] [address] Dr. Karina Heath IG % 0.5 % Normal 0.0-0.5 [facility] Comment on above: Performed By: #### C BC #### [facility] [address] [place] [address] Dr. Karina Heath LYMPH # 1.2 103/ul Normal 1.2-3.8 [facility] Comment on above: Performed By: #### C BC #### [facility] [address] [place] [address] Dr. Karina Heath Lymphocytes/100 WBC (Bld) 20.0 % Critically low 20.5-60.0 [facility] Comment on above: Performed By: #### C BC #### [facility] [address] [place] [address] Dr. Karina Heath MANUAL DIFF REQ NO Normal [facility] Comment on above: Performed By: #### C BC #### [facility] [address] [place] [address] Dr. Karina Heath MCH (RBC) [Entitic mass] 28.6 pg Normal 25.9-34.0 [facility] Comment on above: Performed By: #### C BC #### [facility] [address] [place] [address] Dr. Karina Hetah MCHC (RBC) [Mass/Vol] 33.2 g/dL Normal 29.9-35.2 [facility] Comment on above: Performed By: #### C BC #### [facility] [address] [place] [address] Dr. Karina Heath MCV (RBC) [Entitic vol] 86.0 fL Normal 80.0-94.0 [facility] Comment on above: Performed By: #### C BC #### [facility] [address] [place] [address] Dr. Karina Heath MONO # 0.5 103/ul Normal 0.3-0.8 [facility] Comment on above: Performed By: #### C BC #### [facility] [address] [place] [address] Dr. Karina Heath Monocytes/100 WBC (Bld) 9.1 % Normal 1.7-12.0 [facility] Comment on above: Performed By: #### C BC #### [facility] [address] [place] [address] Dr. Karina Heath NEUT # 4.0 103/ul Normal 1.4-6.5 [facility] Comment on above: Performed By: #### C BC #### [facility] [address] [place] [address] Dr. Karina Heath Neutrophils/100 WBC (Bld) 68.4 % Normal 43.0-75.0 [facility] Comment on above: Performed By: #### C BC #### [facility] [address] [place] [address] Dr. Karina Heath Platelet mean volume (Bld) [Entitic vol] 9.2 fL Critically low 9.5-13.5 [facility] Comment on above: Performed By: #### C BC #### [facility] [address] [place] [address] Dr. Karina Heath PLT 214 103/ul Normal 150-450 [facility] Comment on above: Performed By: #### C BC #### [facility] [address] [place] [address] Dr. Karina Heath RBC 3.85 106/ul Critically low 4.70-6.10 [facility] Comment on above: Performed By: #### C BC #### [facility] [address] [place] [address] Dr. Karina Heath WBC 5.8 103/ul Normal 4.0-11.0 [facility] Comment on above: Performed By: #### C BC #### [facility] [address] [place] [address] Dr. Karina Heath CULTURE WOUNDon 10-15-2022 CULTURE WOUND Culture Observations : No growth of anaerobes at 72 hours. [...] <=0.25 S F Clindamycin <=0.25 S F Quinupristin/Dalfoprist in <=0.25 S F Linezolid 2 S F Vancomycin 1 S F Tetracycline <=1 S F Rifampicin <=0.5 S F Trimethoprim/Sulfametho xazole <=10 S F Normal [facility] Comment on above: Performed By: #### W OUNDCX #### [facility] [address] [place] [address] Dr. Karina Heath POINT OF CARE GLUCOSEon 09-18 Glucose [Mass/Vol] 353 mg/dL Critically high 74-106 T [facility] Comment on above: Performed By: #### C BC #### [facility] [address] [place] [address] Dr. Karina Heath Glucose [Mass/Vol] 363 mg/dL Critically high 74-106 [facility] Comment on above: Performed By: #### C BC #### [facility] [address] [place] [address] Dr. Karina Heath PROF CHEM 8 (BAS METB)on Anion gap [Moles/Vol] 12.0 mmol/L Normal [facility] Comment on above: Performed By: #### C VDTBH #### [facility] [address] [place] [address] Dr. Karina Heath Calcium [Mass/Vol] 8.4 mg/dL Critically low 8.5-10.1 [facility] Comment on above: Performed By: #### C VDTBH #### [facility] [address] [place] [address] Dr. Karina Heath Chloride [Moles/Vol] 98 mmol/L Normal 98-107 [facility] Comment on above: Performed By: #### C VDTBH #### [facility] [address] [place] [address] Dr. Karina Heath CO2 [Moles/Vol] 27.2 mmol/L Normal 21.0-32.0 [facility] Comment on above: Performed By: #### C VDTBH #### [facility] [address] [place] [address] Dr. Karina Heath Creatinine [Mass/Vol] 1.07 mg/dL Normal 0.70-1.30 [facility] Comment on above: Performed By: #### C VDTBH #### [facility] [address] [place] [address] Dr. Karina Heath EGFR-AF BAHAMIAN >60 Normal >=60 [facility] Comment on above: Performed By: #### C VDTBH #### [facility] [address] [place] [address] Dr. Karina Heath EGFR-NON AF BAHAMIAN >60 Normal >=60 [facility] Comment on above: Performed By: #### C VDTBH #### [facility] [address] [place] [address] Dr. Karina Heath Glucose [Mass/Vol] 355 mg/dL Critically high 74-106 T [facility] Comment on above: Performed By: #### C VDTBH #### [facility] [address] [place] [address] Dr. Karina Heath Potassium [Moles/Vol] 4.2 mmol/L Normal 3.5-5.1 [facility] Comment on above: Performed By: #### C VDTBH #### [facility] [address] [place] [address] Dr. Karina Heath Sodium [Moles/Vol] 133 mmol/L Critically low 136-145 Th [facility] Comment on above: Performed By: #### C VDTBH #### [facility] [address] [place] [address] Dr. Karina Heath Urea nitrogen [Mass/Vol] 17.0 mg/dL Normal 7.0-18.0 [facility] Comment on above: Performed By: #### C VDTBH #### [facility] [address] [place] [address] Dr. Karina Heath Urea nitrogen/Creatinine [Mass ratio] 15.9 mg/mg Normal [facility] Comment on above: Performed By: #### C VDTBH #### [facility] [address] [place] [address] Dr. Karina Heath PTTon 10-15-2022 aPTT Coag (Bld) [Time] 27.3 s Normal 22.3-36.2 [facility] Comment on above: Performed By: #### C VDTBH #### [facility] [address] [place] [address] Dr. Karina Heath CBC AUTO DIFFon 10-14-2022 BASO # 0.0 103/ul Normal 0.0-0.1 [facility] Comment on above: Performed By: #### C BC #### [facility] [address] [address] [address] Karina Heath Basophils/100 WBC (Bld) 0.4 % Normal 0.2-2.0 [facility] Comment on above: Performed By: #### C BC #### [facility] [address] [place] [address] Dr. Karina Heath EO # 0.1 103/ul Normal 0.0-0.7 [facility] Comment on above: Performed By: #### C BC #### [facility] [address] [address] [address] Karina Heath Eosinophils/100 WBC (Bld) 1.5 % Normal 0.9-7.0 [facility] Comment on above: Performed By: #### C BC #### [facility] [address] [place] [address] Dr. Karina Heath Erythrocyte distribution width (RBC) [Ratio] 12.6 % Normal 11.0-15.0 [facility] Comment on above: Performed By: #### C BC #### [facility] [address] [place] [address] Dr. Karina Heath Hematocrit (Bld) [Volume fraction] 31.3 % Critically low 42.0-54.0 [facility] Comment on above: Performed By: #### C BC #### [facility] [address] [place] [address] Dr. Karina Heath Hemoglobin (Bld) [Mass/Vol] 10.8 g/dL Critically low 14.0-18.0 [facility] Comment on above: Performed By: #### C BC #### [facility] [address] [place] [address] Dr. Karina Heath IG # 0.05 10e3/ul Critically high 0.00-0.03 [facility] Comment on above: Performed By: #### C BC #### [facility] [address] [place] [address] Dr. Karina Heath IG % 0.7 % Critically high 0.0-0.5 [facility] Comment on above: Performed By: #### C BC #### [facility] [address] [place] [address] Dr. Karina Heath LYMPH # 1.4 103/ul Normal 1.2-3.8 [facility] Comment on above: Performed By: #### C BC #### [facility] [address] [place] [address] Dr. Karina Heath Lymphocytes/100 WBC (Bld) 20.8 % Normal 20.5-60.0 [facility] Comment on above: Performed By: #### C BC #### [facility] [address] [place] [address] Dr. Karina Heath MANUAL DIFF REQ NO Normal [facility] Comment on above: Performed By: #### C BC #### [facility] [address] [place] [address] Dr. Karina Heath MCH (RBC) [Entitic mass] 29.4 pg Normal 25.9-34.0 [facility] Comment on above: Performed By: #### C BC #### [facility] [address] [place] [address] Dr. Karina Heath MCHC (RBC) [Mass/Vol] 34.5 g/dL Normal 29.9-35.2 [facility] Comment on above: Performed By: #### C BC #### [facility] [address] [place] [address] Dr. Karina Heath MCV (RBC) [Entitic vol] 85.3 fL Normal 80.0-94.0 [facility] Comment on above: Performed By: #### C BC #### [facility] [address] [place] [address] Dr. Karina Heath MONO # 0.7 103/ul Normal 0.3-0.8 [facility] Comment on above: Performed By: #### C BC #### [facility] [address] [place] [address] Dr. Karina Heath Monocytes/100 WBC (Bld) 10.3 % Normal 1.7-12.0 [facility] Comment on above: Performed By: #### C BC #### [facility] [address] [place] [address] Dr. Karina Heath NEUT # 4.5 103/ul Normal 1.4-6.5 [facility] Comment on above: Performed By: #### C BC #### [facility] [address] [place] [address] Dr. Karina Heath Neutrophils/100 WBC (Bld) 66.3 % Normal 43.0-75.0 [facility] Comment on above: Performed By: #### C BC #### [facility] [address] [place] [address] Dr. Karina Heath Platelet mean volume (Bld) [Entitic vol] 9.2 fL Critically low 9.5-13.5 [facility] Comment on above: Performed By: #### C BC #### [facility] [address] [place] [address] Dr. Karina Heath PLT 227 103/ul Normal 150-450 [facility] Comment on above: Performed By: #### C BC #### [facility] [address] [place] [address] Dr. Karina Heath RBC 3.67 106/ul Critically low 4.70-6.10 [facility] Comment on above: Performed By: #### C BC #### [facility] [address] [place] [address] Dr. Karina Heath WBC 6.7 103/ul Normal 4.0-11.0 [facility] Comment on above: Performed By: #### C BC #### [facility] [address] [place] [address] Dr. Karina Heath CULTURE ANAEROBICon 10-14-20 CULTURE ANAEROBIC Culture Observations : NO GROWTH OF ANAEROBES AT 72 HOURS. Normal [facility] Comment on above: Performed By: #### A NACX #### [facility] [address] [place] [address] Dr. Karina Heath GRAM STAINon 10-14-2022 DIPHTHEROIDS Normal [facility] Comment on above: Performed By: #### P OCGLUC #### [facility] [address] [place] [address] Dr. Karina Heath EPITHELIALS Normal [facility] Comment on above: Performed By: #### P OCGLUC #### [facility] [address] [address] [address] Karina Heath FUNGAL ELEMENTS Normal [facility] Comment on above: Performed By: #### P OCGLUC #### [facility] [address] [address] [address] Karina Heath GRAM NEG BACILLI Normal [facility] Comment on above: Performed By: #### P OCGLUC #### [facility] [address] [address] [address] Karina Heath GRAM NEG DIPPLOCOCCI Normal [facility] Comment on above: Performed By: #### P OCGLUC #### [facility] [address] [address] [address] Karina Heath GRAM POS BACILLI Normal [facility] Comment on above: Performed By: #### P OCGLUC #### [facility] [address] [address] [address] Karina Heath GRAM POSITIVE COCCI FEW Normal [facility] Comment on above: Performed By: #### P OCGLUC #### [facility] [address] [address] [address] Karina Heath GRAM STAIN SOURCE Rt Leg Abscess [facility] Comment on above: Performed By: #### P OCGLUC #### [facility] [address] [address] [address] Karina Heath GS_DIPTH [facility] Comment on above: Performed By: #### P OCGLUC #### [facility] [address] [address] [address] Karina Heath WBC RARE Normal [facility] Comment on above: Performed By: #### P OCGLUC #### [facility] [address] [address] [address] Karina Heath POINT OF CARE GLUCOSEon -2 Glucose [Mass/Vol] 282 mg/dL Critically high 74-106 T [facility] Comment on above: Performed By: #### C BC #### [facility] [address] [address] [address] Karina Heath Glucose [Mass/Vol] 281 mg/dL Critically high 74-106 [facility] Comment on above: Performed By: #### P OCGLUC #### [facility] [address] [place] [address] Dr. Karina Heath Glucose [Mass/Vol] 157 mg/dL Critically high -106 [facility] Comment on above: Performed By: #### P OCGLUC #### [facility] [address] [place] [address] Dr. Karina Heath Glucose [Mass/Vol] 180 mg/dL Critically high -106 [facility] Comment on above: Performed By: #### P OCGLUC #### [facility] [address] [place] [address] Dr. Karina Heath PROF CHEM 8 (BAS METB)on Anion gap [Moles/Vol] 10.4 mmol/L Normal [facility] Comment on above: Performed By: #### C BC #### [facility] [address] [place] [address] Dr. Karina Heath Calcium [Mass/Vol] 8.4 mg/dL Critically low 8.5-10.1 [facility] Comment on above: Performed By: #### C BC #### [facility] [address] [place] [address] Dr. Karina Heath Chloride [Moles/Vol] 99 mmol/L Normal 98-107 [facility] Comment on above: Performed By: #### C BC #### [facility] [address] [place] [address] Dr. Karina Heath CO2 [Moles/Vol] 29.3 mmol/L Normal 21.0-32.0 [facility] Comment on above: Performed By: #### C BC #### [facility] [address] [place] [address] Dr. Karina Heath Creatinine [Mass/Vol] 1.01 mg/dL Normal 0.70-1.30 [facility] Comment on above: Performed By: #### C BC #### [facility] [address] [place] [address] Dr. Karina Heath EGFR-AF BAHAMIAN >60 Normal >=60 [facility] Comment on above: Performed By: #### C BC #### [facility] [address] [place] [address] Dr. Karina Heath EGFR-NON AF BAHAMIAN >60 Normal >=60 [facility] Comment on above: Performed By: #### C BC #### [facility] [address] [address] [address] Karina Heath Glucose [Mass/Vol] 394 mg/dL Critically high 74-106 T [facility] Comment on above: Performed By: #### C BC #### [facility] [address] [address] [address] Karina Heath Potassium [Moles/Vol] 3.7 mmol/L Normal 3.5-5.1 [facility] Comment on above: Performed By: #### C BC #### [facility] [address] [place] [address] Dr. Karina Heath Sodium [Moles/Vol] 135 mmol/L Critically low 136-145 Th [facility] Comment on above: Performed By: #### C BC #### [facility] [address] [place] [address] Dr. Karina Heath Urea nitrogen [Mass/Vol] 13.0 mg/dL Normal 7.0-18.0 [facility] Comment on above: Performed By: #### C BC #### [facility] [address] [place] [address] Dr. Karina Heath Urea nitrogen/Creatinine [Mass ratio] 12.9 mg/mg Normal [facility] Comment on above: Performed By: #### C BC #### [facility] [address] [place] [address] Dr. Karina Heath PTTon 10-14-2022 aPTT Coag (Bld) [Time] 26.5 s Normal 22.3-36.2 [facility] Comment on above: Performed By: #### P OCGLUC #### [facility] [address] [place] [address] Dr. Karina Heath CBC AUTO DIFFon 10-13-2022 BASO # 0.1 103/ul Normal 0.0-0.1 [facility] Comment on above: Performed By: #### C BC #### [facility] [address] [place] [address] Dr. Karina Heath Basophils/100 WBC (Bld) 0.8 % Normal 0.2-2.0 [facility] Comment on above: Performed By: #### C BC #### [facility] [address] [place] [address] Dr. Karina Heath EO # 0.1 103/ul Normal 0.0-0.7 [facility] Comment on above: Performed By: #### C BC #### [facility] [address] [place] [address] Dr. Karina Heath Eosinophils/100 WBC (Bld) 1.8 % Normal 0.9-7.0 [facility] Comment on above: Performed By: #### C BC #### [facility] [address] [place] [address] Dr. Karina Heath Erythrocyte distribution width (RBC) [Ratio] 12.3 % Normal 11.0-15.0 [facility] Comment on above: Performed By: #### C BC #### [facility] [facility] [address] [place] [address] Dr. Karina Heath Hematocrit (Bld) [Volume fraction] 33.7 % Critically low 42.0-54.0 [facility] Comment on above: Performed By: #### C BC #### [facility] [address] [place] [address] Dr. Karina Heath Hemoglobin (Bld) [Mass/Vol] 11.8 g/dL Critically low 14.0-18.0 [facility] Comment on above: Performed By: #### C BC #### [facility] [address] [place] [address] Dr. Karina Heath IG # 0.05 10e3/ul Critically high 0.00-0.03 [facility] Comment on above: Performed By: #### C BC #### [facility] [address] [place] [address] Dr. Karina Heath IG % 0.8 % Critically high 0.0-0.5 [facility] Comment on above: Performed By: #### C BC #### [facility] [address] [place] [address] Dr. Karina Heath LYMPH # 1.0 103/ul Critically low 1.2-3.8 [facility] Comment on above: Performed By: #### C BC #### [facility] [address] [place] [address] Dr. Karina Heath Lymphocytes/100 WBC (Bld) 16.4 % Critically low 20.5-60.0 [facility] Comment on above: Performed By: #### C BC #### [facility] [address] [place] [address] Dr. Karina Heath MANUAL DIFF REQ NO Normal [facility] Comment on above: Performed By: #### C BC #### [facility] [address] [place] [address] Dr. Karina Heath MCH (RBC) [Entitic mass] 28.9 pg Normal 25.9-34.0 [facility] Comment on above: Performed By: #### C BC #### [facility] [address] [place] [address] Dr. Karina Heath MCHC (RBC) [Mass/Vol] 35.0 g/dL Normal 29.9-35.2 [facility] Comment on above: Performed By: #### C BC #### [facility] [address] [place] [address] Dr. Karina Heath MCV (RBC) [Entitic vol] 82.6 fL Normal 80.0-94.0 [facility] Comment on above: Performed By: #### C BC #### [facility] [address] [place] [address] Dr. Karina Heath MONO # 0.7 103/ul Normal 0.3-0.8 [facility] Comment on above: Performed By: #### C BC #### [facility] [address] [place] [address] Dr. Karina Heath Monocytes/100 WBC (Bld) 10.6 % Normal 1.7-12.0 [facility] Comment on above: Performed By: #### C BC #### [facility] [address] [place] [address] Dr. Karina Heath NEUT # 4.3 103/ul Normal 1.4-6.5 [facility] Comment on above: Performed By: #### C BC #### [facility] [address] [place] [address] Dr. Karina Heath Neutrophils/100 WBC (Bld) 69.6 % Normal 43.0-75.0 [facility] Comment on above: Performed By: #### C BC #### [facility] [address] [place] [address] Dr. Karina Heath Platelet mean volume (Bld) [Entitic vol] 9.0 fL Critically low 9.5-13.5 [facility] Comment on above: Performed By: #### C BC #### [facility] [address] [place] [address] Dr. Karina Heath PLT 257 103/ul Normal 150-450 [facility] Comment on above: Performed By: #### C BC #### [facility] [address] [place] [address] Dr. Karina Heath RBC 4.08 106/ul Critically low 4.70-6.10 [facility] Comment on above: Performed By: #### C BC #### [facility] [address] [place] [address] Dr. Karina Heath WBC 6.1 103/ul Normal 4.0-11.0 [facility] Comment on above: Performed By: #### C BC #### [facility] [address] [place] [address] Dr. Karina Heath CULTURE BLOODon 10-13-2022 Microscopic examination of blood, culture Culture Observations: NO GROWTH AT 5 DAYS. Normal [facility] Comment on above: Performed By: #### P OCGLUC #### [facility] [address] [place] [address] Dr. Karina Heath Microscopic examination of blood, culture Culture Observations: NO GROWTH AT 5 DAYS. Normal [facility] Comment on above: Performed By: #### P OCGLUC #### [facility] [address] [place] [address] Dr. Karina Heath Covid-19 PCR ([facility])on 09-17 SARS-CoV-2 (COVID-19) RNA MEETA+probe Ql (Unsp spec) Not detected Normal NOT DETECTED [facility] Comment on above: Result Comment: When [...] for this test is supported by the [place] of Health and Human Service's declaration [...] used). Performed By: #### P OCGLUC #### [facility] [address] [place] [address] Dr. Karina Heath POINT OF CARE GLUCOSEon 09-17 Glucose [Mass/Vol] 281 mg/dL Critically high 74-106 [facility] Comment on above: Performed By: #### P OCGLUC #### [facility] [address] [place] [address] Dr. Karina Heath GI PANEL (PCR)on 09-24-2022 Adenovirus F 40/41 Not detected Normal NOT DETECTED [facility] Comment on above: Performed By: #### C BC #### [facility] [address] [place] [address] Dr. Karina Heath Astrovirus Not detected Normal NOT DETECTED [facility] Comment on above: Performed By: #### C BC #### [facility] [address] [place], [place] [id number] Dr. Karina Godinez Diff toxin A/B Not detected Normal NOT DETECTED [facility] Comment on above: Performed By: #### C BC #### [facility] [address] [place] [address] Dr. Karina Heath Campylobacter Not detected Normal NOT DETECTED [facility] Comment on above: Performed By: #### C BC #### [facility] [address] [place] [address] Dr. Karina Heath Cryptosporidium Not detected Normal NOT DETECTED [facility] Comment on above: Performed By: #### C BC #### [facility] [address] [place] [address] Dr. Karina Heath Cyclos. Cayetanensis Not detected Normal NOT DETECTED [facility] Comment on above: Performed By: #### C BC #### [facility] [address] [place] [address] Dr. Karina Heath E. Coli O157 Not Applicable Normal Not Applicable [facility] Comment on above: Performed By: #### C BC #### [facility] [address] [place] [address] Dr. Karina Heath E. histolytica Not detected Normal NOT DETECTED [facility] Comment on above: Performed By: #### C BC #### [facility] [address] [place] [address] Dr. Karina Heath EAEC Not detected Normal NOT DETECTED [facility] Comment on above: Performed By: #### C BC #### [facility] [address] [place] [address] Dr. Karina Heath EIEC Not detected Normal NOT DETECTED [facility] Comment on above: Performed By: #### C BC #### [facility] [address] [place] [address] Dr. Karina Heath EPEC Not detected Normal NOT DETECTED [facility] Comment on above: Performed By: #### C BC #### [facility] [address] [place] [address] Dr. Karina Heath ETEC Not detected Normal NOT DETECTED [facility] Comment on above: Performed By: #### C BC #### [facility] [address] [address] [address] Karina Ryan Not detected Normal NOT DETECTED [facility] Comment on above: Performed By: #### C BC #### [facility] [address] [address] [address] Karina REDDY CONTROLS PASSED Normal [facility] Comment on above: Performed By: #### C BC #### [facility] [address] [address] [address] Karina VELIZ AMARI HEADER GI PANEL BACTERIA Normal [facility] Comment on above: Performed By: #### C BC #### [facility] [address] [address] [address] Karina MARTIN ECOLI GI PANEL DIARRHEAGEN IC E.COLI / SHIGELLA Normal [facility] Comment on above: Performed By: #### C BC #### [facility] [address] [address] [address] Karina MARTIN INFO SEE BELOW Normal [facility] Comment on above: Result Comment: EAEC - Enteroaggregative E. Coli EPEC- Enteropathogenic E. Coli ETEC- Enterotoxigenic E. Coli lt/st STEC- Shigella-like toxin-producing E. Coli stx1/stx2 EIEC- Shigella/Enteroinvasive E. Coli Performed By: #### C BC #### [facility] [address] [address] [address] Karina MARTIN PARASITES GI PANEL PARASITES Normal [facility] Comment on above: Performed By: #### C BC #### [facility] [address] [address] [address] Karina MARTIN VIRUS GI PANEL VIRUSES Normal [facility] Comment on above: Performed By: #### C BC #### [facility] [address] [address] [address] Karina Heath Norovirus GI/GII Not detected Normal NOT DETECTED [facility] Comment on above: Performed By: #### C BC #### [facility] [address] [place] [address] Dr. Karina Heath P. Shigelloides Not detected Normal NOT DETECTED [facility] Comment on above: Performed By: #### C BC #### [facility] [address] [place] [address] Dr. Karina Heath Rotavirus A Not detected Normal NOT DETECTED [facility] Comment on above: Performed By: #### C BC #### [facility] [address] [place] [address] Dr. Karina Heath Salmonella Not detected Normal NOT DETECTED [facility] Comment on above: Performed By: #### C BC #### [facility] [address] [place] [address] Dr. Karina Heath Sapovirus Not detected Normal NOT DETECTED [facility] Comment on above: Performed By: #### C BC #### [facility] [address] [place] [address] Dr. Karina Heath STEC Detected Critically abnormal NOT DETECTED [facility] Comment on above: Performed By: #### C BC #### [facility] [address] [place] [address] Dr. Karina Heath Vibrio Not detected Normal NOT DETECTED [facility] Comment on above: Performed By: #### C BC #### [facility] [address] [place] [address] Dr. Karina Heath Vibrio Cholera Not detected Normal NOT DETECTED [facility] Comment on above: Performed By: #### C BC #### [facility] [address] [place] [address] Dr. Karina Heath Y. Enterocolitica Not detected Normal NOT DETECTED [facility] Comment on above: Performed By: #### C BC #### [facility] [address] [place] [address] Dr. Karina Heath [facility]17 SARS-CoV-2 (COVID-19) RNA MEETA+probe Ql (Unsp spec) Detected Critically abnormal NOT DETECTED [facility] Comment on above: Result Comment: This test is not yet approved or cleared by the [place] FDA. When there are no FDA-approved or cleared tests available, and other criteria are met, FDA can make tests available under an emergency access mechanism called an Emergency Use Authorization (EUA). The EUA for this test is supported by the [place] of Health and Human Service's declaration that [...] used). Performed By: #### P OCGLUC #### [facility] [address] [place] [address] Dr. Karina Heath CAROTID ART BILon 13-2 022 CAROTID ART GWYN EXAMINATION: US MOORE TID ART GWYN HISTORY: Monoplegia of right nondominant [...] RAMIRO BURNETT Date: 2022-04-28 18:57 Normal [facility] Basic Metabolic Panel w/ Ref jose to MGon 04-19-2022 Anion gap [Moles/Vol] 13 mmol/L 9 - 17 mmol/L [facility] Calcium [Mass/Vol] 9.1 mg/dL 8.6 - 10. 4 mg/dL [facility] Chloride [Moles/Vol] 97 mmol/L Low 98 - 10 7 mmol/L [facility] CO2 [Moles/Vol] 23 mmol/L 20 - 31 mmol/L [facility] Creatinine [Mass/Vol] 1.46 mg/dL High 0.70 - 1.20 mg/dL [facility] GFR >60 >60 mL/min [facility] GFR Non- 52 mL/min Low >60 [facility] Glucose [Mass/Vol] 154 mg/dL High 70 - 99 mg/dL [facility] Interpretation and review of laboratory results Abnormal [facility] Potassium [Moles/Vol] 4.0 mmol/L 3.7 - 5.3 mmol/L [facility] Sodium [Moles/Vol] 133 mmol/L Low 135 - 144 mmol/L [facility] Urea nitrogen (BldV) [Mass/Vol] 39 mg/dL High 6 - 20 mg/dL [facility] Urea nitrogen/Creatinine (Bld) [Mass ratio] 27 High [facility] CBC with Auto Differentialon 04-19-2022 Absolute Eos # 0.13 [facility] Absolute Immature Granulocyte 0.04 [facility] Absolute Lymph # 1.66 [facility] Absolute Trimble # 0.72 [facility] Basophils (Bld) [#/Vol] 0.05 10*3/uL [facility] Basophils/100 WBC (Bld) 1 % 0 - 2 % [facility] Eosinophils/100 WBC (Bld) 1 % 1 - 4 % [facility] Hematocrit (Bld) [Volume fraction] 45.8 % 40.7 - 50.3 % [facility] Hemoglobin (Bld) [Mass/Vol] 15.2 g/dL 13.0 - 17.0 g/dL [facility] Immature granulocytes/100 WBC (Bld) 0 % 0 [facility] Interpretation and review of laboratory results Abnormal [facility] Lymphocytes/100 WBC (Bld) 16 % Low 24 - 43 % [facility] MCH (RBC) [Entitic mass] 28.1 pg 25.2 - 33.5 pg [facility] MCHC (RBC) [Mass/Vol] 33.2 g/dL 28.4 - 34.8 g/dL [facility] MCV (RBC) [Entitic vol] 84.8 fL 82.6 - 102.9 fL [facility] Monocytes/100 WBC (Bld) 7 % 3 - 12 % [facility] NRBC Automated 0.0 0.0 per 100 WBC [facility] Platelet distribution width (Bld) [Ratio] 13.4 % 11.8 - 14.4 % [facility] Platelet mean volume (Bld) [Entitic vol] 9.2 fL 8.1 - 13.5 fL [facility] Platelets (Bld) [#/Vol] 214 10*3/uL [facility] RBC (Bld) [#/Vol] 5.40 10*6/uL 4.21 - 5.7 7 m/uL [facility] Segmented neutrophils/100 WBC (Bld) 75 % High 36 - 65 % [facility] Segs Absolute 7.72 [facility] WBC (Bld) [#/Vol] 10.3 10*3/uL [facility] CT Head WO Contraston 2021 No acute intracrania l abnormality. PN RIS CONSOLIDATED EXAMINATION: CT OF THE HEAD [...] medical condition->Emergency Medical Condition (MA) FINDINGS: BRAIN/VENTRICLES: No acute [...] is intact. Extracranial soft tissues are unremarkable. [facility] Ajay Aggarwal M D - 04/19/2022 EXAMINATION: CT OF THE HEAD [...] medical condition->Emergency Medical Condition (MA) FINDINGS: BRAIN/VENTRICLES: No acute [...] are unremarkable. IMPRESSION: No acute intracranial abnormality. [facility] Work Phone: Radiology Study observation (narrative) [facility] Work Phone: CT Head WO ContrastOrdered B y: Ajay Alessia on 04-19-2022 [employer] [facility] Work Phone: Laboratory - Chemistry and C hemistry - challengeon 04-19-2022 GFR/1.73 sq M.predicted MDRD (S/P/Bld) [Vol rate/Area] [facility] Comment on above: Average GFR for 40-4 9 years old: 99 mL/min/1.73sq m Chronic Kidney Disease: <60 mL/min/1.73sq m Kidney failure: <15 mL/min/1.73sq m eGFR calculated using average adult body mass. Additional eGFR calculator available at: http://www.Wearable Security.Sensitive Object/multiple_crcl_2012.htm Stage 1: Some kidney damage normal GFR Stage 2: Mild kidney damage GFR 60-89 Stage 3: Moderate kidney damage GFR 30-59 Stage 4: Severe kidney damage GFR 15-29 Stage 5: Severe kidney damage GFR <15 ESRD - chronic treatment by dialysis or transplant Protime-INRon 04-19-2022 INR Coag (Bld) [Relative time] 1.0 {INR} [facility] Comment on above: Non-therapeutic Range: INR = 0.9-1.2 Therapeutic Range: Moderate Anticoagulant Intensity: INR = 2.0-3.0 High Anticoagulant Intensity: INR = 2.5-3.5 PT Coag (PPP) [Time] 13.4 s [facility] Troponinon 04-19-2022 Troponin, High Sensitivity 18 ng/L 0 - 22 ng/L [facility] Comment on above: High Sensitivity Troponin values cannot be compared with other Troponin methodologies. Patients with high levels of Biotin oral intake (i.e >5mg/day) may have falsely decreased Troponin levels. Samples collected within 8 hours of biotin intake may require additional information for diagnosis. [facility] CBC with Auto Differentialon 04-04-2022 Absolute Eos # 0.08 [facility] Absolute Immature Granulocyte <0.03 [facility] Absolute Lymph # 1.53 [facility] Absolute Trimble # 0.58 [facility] Basophils (Bld) [#/Vol] 0.05 10*3/uL [facility] Basophils/100 WBC (Bld) 1 % 0 - 2 % [facility] Eosinophils/100 WBC (Bld) 1 % 1 - 4 % [facility] Hematocrit (Bld) [Volume fraction] 44.8 % 40.7 - 50.3 % [facility] Hemoglobin (Bld) [Mass/Vol] 15.0 g/dL 13.0 - 17.0 g/dL [facility] Immature granulocytes/100 WBC (Bld) 0 % 0 [facility] Interpretation and review of laboratory results Abnormal [facility] Lymphocytes/100 WBC (Bld) 16 % Low 24 - 43 % [facility] MCH (RBC) [Entitic mass] 27.9 pg 25.2 - 33.5 pg [facility] MCHC (RBC) [Mass/Vol] 33.5 g/dL 28.4 - 34.8 g/dL [facility] MCV (RBC) [Entitic vol] 83.4 fL 82.6 - 102.9 fL [facility] Monocytes/100 WBC (Bld) 6 % 3 - 12 % [facility] NRBC Automated 0.0 0.0 per 100 WBC [facility] Platelet distribution width (Bld) [Ratio] 13.8 % 11.8 - 14.4 % [facility] Platelet mean volume (Bld) [Entitic vol] 10.1 fL 8.1 - 13.5 fL [facility] Platelets (Bld) [#/Vol] 208 10*3/uL [facility] RBC (Bld) [#/Vol] 5.37 10*6/uL 4.21 - 5.7 7 m/uL [facility] Segmented neutrophils/100 WBC (Bld) 76 % High 36 - 65 % [facility] Segs Absolute 7.18 [facility] WBC (Bld) [#/Vol] 9.4 10*3/uL [facility] CT Head WO Contraston 2021 No acute intracrania l abnormality. 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 PN RIS CONSOLIDATED EXAMINATION: CT OF THE HEAD [...] of the visualized skull or soft tissues. 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 [facility] Work Phone: Radiology Study observation (narrative) [employer] Phone: CT Head WO ContrastOrdered B y: Faustino Milan on 04-04-2022 [facility] Work Phone: Comprehensive Metabolic Pane l w/ Reflex to MGon 04-04-2022 Albumin [Mass/Vol] 4.4 g/dL 3.5 - 5.2 g/dL [facility] Albumin/Globulin [Mass ratio] 1.4 {ratio} [facility] ALP (Bld) [Catalytic activity/Vol] 108 U/L 40 - 129 U/L [facility] ALT [Catalytic activity/Vol] 24 U/L 5 - 41 U/L [facility] Anion gap [Moles/Vol] 12 mmol/L 9 - 17 mmol/L [facility] AST [Catalytic activity/Vol] 21 U/L <40 [facility] Bilirubin [Mass/Vol] 0.17 mg/dL Low 0.3 - 1 .2 mg/dL [facility] Calcium [Mass/Vol] 9.6 mg/dL 8.6 - 10. 4 mg/dL [facility] Chloride [Moles/Vol] 98 mmol/L 98 - 10 7 mmol/L [facility] CO2 [Moles/Vol] 24 mmol/L 20 - 31 mmol/L [facility] Creatinine [Mass/Vol] 1.36 mg/dL High 0.70 - 1.20 mg/dL [facility] Free PSA/Total PSA [Mass fraction] 7.5 g/dL 6.4 - 8.3 g/dL [facility] GFR >60 >60 mL/min [facility] GFR Non- 56 mL/min Low >60 [facility] Glucose [Mass/Vol] 270 mg/dL High 70 - 99 mg/dL [facility] Interpretation and review of laboratory results Abnormal [facility] Potassium [Moles/Vol] 4.0 mmol/L 3.7 - 5.3 mmol/L [facility] Sodium [Moles/Vol] 134 mmol/L Low 135 - 144 mmol/L [facility] Urea nitrogen (BldV) [Mass/Vol] 24 mg/dL High 6 - 20 mg/dL [facility] Urea nitrogen/Creatinine (Bld) [Mass ratio] 18 [facility] Glucose, Whole Bloodon 04-04 Glucose [Mass/Vol] 256 mg/dL High 74 - 100 mg/dL [facility] Interpretation and review of laboratory results Abnormal [facility] Laboratory - Chemistry and C hemistry - challengeon 04-04-2022 GFR/1.73 sq M.predicted MDRD (S/P/Bld) [Vol rate/Area] [facility] Comment on above: Average GFR for 40-4 9 years old: 99 mL/min/1.73sq m Chronic Kidney Disease: <60 mL/min/1.73sq m Kidney failure: <15 mL/min/1.73sq m eGFR calculated using average adult body mass. Additional eGFR calculator available at: http://www.D4P/multiple_crcl_2012.htm Stage 1: Some kidney damage normal GFR Stage 2: Mild kidney damage GFR 60-89 Stage 3: Moderate kidney damage GFR 30-59 Stage 4: Severe kidney damage GFR 15-29 Stage 5: Severe kidney damage GFR <15 ESRD - chronic treatment by dialysis or transplant Vital Signs Date Time Vital Sign Value Performing Clinician Faci lity 10-06-2024 19:40-0500 Body temperature 98.49 [degF] Stanley Mckenzie MD Work Phone: [place] 10-06-2024 19:40-0500 Diastolic blood pressure 91 mm[Hg] Stanley Mckenzie MD Work Phone: [facility] 10-06-2024 19:40-0500 Heart rate 74 /min Stanley Mckenzie MD Work Phone: [facility] 10-06-2024 19:40-0500 Respiratory rate 16 /min Stanley Mckenzie MD Work Phone: [facility] 10-06-2024 19:40-0500 SaO2% (BldA) [Mass fraction] 96 % Stanley Mckenzie MD Work Phone: [facility] 10-06-2024 19:40-0500 Systolic blood pressure 148 mm[Hg] Stanley Mckenzie MD Work Phone: [facility] 10-04-2024 06:00-0500 Body mass index (BMI) [Ratio] 26.03 kg/m2 Stanley Mckenzie MD Work Phone: [facility] 10-04-2024 06:00-0500 Body weight 82.3 kg Stanley Mckenzie MD Work Phone: [facility] 09-29-2024 16:41-0500 Body height 177.8 cm Stanley Mckenzie MD Work Phone: [facility] 09-28-2024 13:00-0500 Diastolic blood pressure 76 mm[Hg] Rashad Chavez MD Work Phone: [facility] 09-28-2024 13:00-0500 Heart rate 115 /min Rashad Chavez MD Work Phone: [facility] 09-28-2024 13:00-0500 Respiratory rate 25 /min Rashad Chavez MD Work Phone: [facility] 09-28-2024 13:00-0500 SaO2% (BldA) [Mass fraction] 100 % Rashad Chavez MD Work Phone: [facility] 09-28-2024 13:00-0500 Systolic blood pressure 157 mm[Hg] Rashad Chavez MD Work Phone: [facility] 09-28-2024 11:47-0500 Body temperature 37.0 Rashad Chavez MD Work Phone: [facility] 09-28-2024 11:05-0500 Body temperature 100.9 [degF] Rashad Chavez MD Work Phone: [facility] 09-28-2024 10:19-0500 Body mass index (BMI) [Ratio] 27.84 kg/m2 Rashad Chavez MD Work Phone: [facility] 09-28-2024 10:19-0500 Body weight 88 kg Rashad Chavez MD Work Phone: [facility] [employer] 09-28-2024 09:48-0500 Body temperature 37.0 Rashad Chavez MD Work Phone: [facility] 01-22-2024 15:44-0400 Body temperature 97.81 [degF] Sarmad Daly MD Work Phone: [facility] [email or web address] 01-22-2024 15:44-0400 Diastolic blood pressure 85 mm[Hg] Sarmad Daly MD Work Phone: [facility] [email or web address] 01-22-2024 15:44-0400 Heart rate 70 /min Sarmad Daly MD Work Phone: [facility] [email or web address] 01-22-2024 15:44-0400 Respiratory rate 11 /min Sarmad Daly MD Work Phone: [facility] [email or web address] 01-22-2024 15:44-0400 SaO2% (BldA) [Mass fraction] 98 % Sarmad Daly MD Work Phone: [facility] [email or web address] 01-22-2024 15:44-0400 Systolic blood pressure 138 mm[Hg] Sarmad Daly MD Work Phone: [facility] [email or web address] 01-21-2024 21:40-0400 Body height 177.8 cm Sarmad Daly MD Work Phone: [facility] [email or web address] 01-21-2024 21:40-0400 Body mass index (BMI) [Ratio] 27.93 kg/m2 Sarmad Daly MD Work Phone: [facility] [email or web address] 01-21-2024 21:40-0400 Body weight 88.3 kg Sarmad Daly MD Work Phone: [facility] [email or web address] 01-19-2024 01:32-0400 Diastolic blood pressure 82 mm[Hg] Steve Alvarado MD Work Phone: [facility] [email or web address] 01-19-2024 01:32-0400 Heart rate 87 /min Steve Alvarado MD Work Phone: [facility] [email or web address] 01-19-2024 01:32-0400 Respiratory rate 16 /min Steve Alvarado MD Work Phone: [facility] [email or web address] 01-19-2024 01:32-0400 SaO2% (BldA) [Mass fraction] 99 % Steve Alvarado MD Work Phone: [facility] 01-19-2024 01:32-0400 Systolic blood pressure 126 mm[Hg] Steve Alvarado MD Work Phone: [facility] [employer] 01-19-2024 00:46-0400 Body temperature 98.71 [degF] Steve Alvarado MD Work Phone: [facility] 01-18-2024 23:14-0400 Body height 177.8 cm Steve Alvarado MD Work Phone: [facility] [employer] 01-18-2024 23:14-0400 Body mass index (BMI) [Ratio] 27.26 kg/m2 Steve Alvarado MD Work Phone: [facility] [employer] 01-18-2024 23:14-0400 Body weight 86.18 kg Steve Alvarado MD Work Phone: [facility] 09-24-2023 18:52-0500 Diastolic blood pressure 85 mm[Hg] Reginaldo Beltran MD Work Phone: [facility] 09-24-2023 18:52-0500 Heart rate 98 /min Reginaldo Beltran MD Work Phone: [facility] 09-24-2023 18:52-0500 Respiratory rate 18 /min Reginaldo Beltran MD Work Phone: [facility] 09-24-2023 18:52-0500 SaO2% (BldA) [Mass fraction] 96 % Reginaldo Beltran MD Work Phone: [facility] 09-24-2023 18:52-0500 Systolic blood pressure 140 mm[Hg] Reginaldo Beltran MD Work Phone: [facility] 09-24-2023 17:07-0500 Body temperature 98.91 [degF] Reginaldo Beltran MD Work Phone: [facility] 09-22-2023 12:07-0500 SaO2% (BldA) [Mass fraction] 98.9 % Reginaldo Beltran MD Work Phone: [facility] 09-22-2023 04:00-0500 Body height 182.9 cm Reginaldo Beltran MD Work Phone: [facility] 09-22-2023 04:00-0500 Body mass index (BMI) [Ratio] 25.58 kg/m2 Reginaldo Beltran MD Work Phone: [facility] 09-22-2023 04:00-0500 Body weight 85.55 kg Reginaldo Beltran MD Work Phone: [facility] 09-21-2023 16:54-0500 SaO2% (BldA) [Mass fraction] 99.9 % Reginaldo Beltran MD Work Phone: [facility] 04-20-2022 00:26-0400 SaO2% (BldA) [Mass fraction] 97 % Lulú Bush DO Work Phone: [facility] 04-20-2022 00:15-0400 Diastolic blood pressure 88 mm[Hg] Lulú Bush DO Work Phone: [facility] 04-20-2022 00:15-0400 Heart rate 100 /min Lulú Bush DO Work Phone: [facility] 04-20-2022 00:15-0400 Respiratory rate 19 /min Lulú Bush DO Work Phone: [facility] 04-20-2022 00:15-0400 Systolic blood pressure 145 mm[Hg] Lulú Bush DO Work Phone: [facility] 04-19-2022 21:45-0400 Body temperature 96.8 [degF] Lulú Bush DO Work Phone: [facility] 04-04-2022 23:25-0400 Diastolic blood pressure 106 mm[Hg] Cheng Lira MD [facility] 04-04-2022 23:25-0400 Systolic blood pressure 198 mm[Hg] Cheng Lira MD [facility] 04-04-2022 23:15-0400 SaO2% (BldA) [Mass fraction] 94 % Cheng Lira MD [facility] 04-04-2022 21:58-0400 Body height 177.8 cm Cheng Lira MD [facility] 04-04-2022 21:58-0400 Body mass index (BMI) [Ratio] 27.26 kg/m2 Cheng Lira MD [facility] 04-04-2022 21:58-0400 Body temperature 97.2 [degF] Cheng Lira MD [facility] 04-04-2022 21:58-0400 Body weight 86.18 kg Cheng Lira MD [facility] 04-04-2022 21:58-0400 Heart rate 84 /min Cheng Lira MD [facility] 04-04-2022 21:58-0400 Respiratory rate 20 /min Cheng Lira MD [facility] Encounters Encounter Date Encounter Type Care Provider Facility Start: 10-14-2024 End: 10-14-2024 ambulatory [facility] Start: 10-14-2024 End: 10-14-2024 Subsequent hospital visit by physician Vincent Winters MD Work Phone: [facility] Laboratory Comment on above: 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) Start: 10-03-2024 End: 10-05-2024 Evaluation and management of inpatient Stanley Mckenzie MD Work Phone: [facility] Non-Invasive Cardiology Comment on above: Arrived Start: 09-28-2024 End: 10-06-2024 Evaluation and management of inpatient Stanley Mckenzie MD Work Phone: [address] Burn Unit Start: 09-28-2024 End: 09-28-2024 Emergency department patient visit Rashad Chavez MD Work Phone: [facility] Emergency Department Comment on above: Hypertensive encepha lopathy (Primary Dx); Diabetic ketoacidosis with coma associated with type 2 diabetes mellitus (HCC); Pneumonia of left lower lobe due to infectious organism; Altered mental status, unspecified altered mental status type; ABHIJIT (acute kidney injury) (HCC); Acute respiratory failure with hypoxia; Non compliance w medication regimen Start: 02-28-2024 End: 02-29-2024 ambulatory Felix LUKE Facility:[facility] Start: 02-28-2024 End: 02-28-2024 Patient encounter procedure Felix LUKE [facility] [place] Start: 01-19-2024 End: 01-22-2024 Evaluation and management of inpatient Sarmad Daly MD Work Phone: [address] Onc/Med Surg Start: 01-18-2024 End: 01-19-2024 Emergency department patient visit Steve Alvarado MD Work Phone: [facility] ED Comment on above: Hypertensive encepha lopathy (Primary Dx); Hypertensive emergency Start: 10-16-2023 ambulatory VINCENT WINTERS [facility] Start: 09-21-2023 End: 09-24-2023 Evaluation and management of inpatient NEUROLOGY CONSULT [facility] Start: 09-21-2023 End: 09-24-2023 Evaluation and management of inpatient Reginaldo Beltran MD Work Phone: [facility] Med Surg Comment on above: Acute respiratory fa ilure Start: 08-12-2023 End: 08-13-2023 ambulatory Jarod Aviles [employer] Facility:[facility] Start: 05-13-2023 End: 05-14-2023 ambulatory Jarod Aviles [employer] Facility:[facility] Start: 02-11-2023 End: 02-12-2023 ambulatory Jarod Aviles [employer] Facility:[facility] Start: 01-11-2023 End: 01-12-2023 ambulatory [facility] Facility:[facility] Start: 12-27-2022 End: 12-28-[address] VINCENT WINTERS . Facility:[facility] Start: 12-24-2022 End: 12-25-2022 ambulatory [facility] Facility:[facility] Start: 12-03-2022 End: 12-04-[address] VINCENT WINTERS . Facility:[facility] Start: 11-12-2022 End: 11-13-[address] VINCENT WINTERS . Facility:[facility] Start: 10-22-2022 End: 10-23-[address] VINCENT WINTERS . Facility:[facility] Start: 10-18-[address] VINCENT WINTERS . Facili ty:[facility] Start: 10-13-2022 End: 10-15-2022 Evaluation and management of inpatient JACQUELINE Orantes [facility] Facility:[facility] Start: 10-13-2022 End: 10-14-[address] VINCENT WINTERS . Facility:[facility] Start: 10-13-2022 End: 10-13-[address] VINCENT WINTERS . Facility:[facility] Start: 09-24-2022 End: 09-24-[address] VINCENT WINTERS . Facility:[facility] Start: 06-01-2022 End: 06-01-[address] VINCENT WINTERS . Facility:[facility] Start: 04-28-2022 End: 04-29-[address] VINCENT WINTERS . Facility:[facility] Start: 04-19-2022 End: 04-20-2022 Emergency department patient visit Lulú Kiera Bush DO Work Phone: [facility] ED Comment on above: Essential hypertensi on (Primary Dx); Acute headache, unspecified headache type Start: 04-04-2022 End: 04-05-2022 Emergency department patient visit Cheng Lira MD [facility] ED Comment on above: Acute nonintractable headache, unspecified headache type (Primary Dx); Elevated blood pressure reading Start: 03-18-2022 End: 03-19-[address] VINCENT WINTERS . Facility:[facility] Procedures Date Procedure Procedure Detail Performing Clinician Start: 10-14-2024 Basic metabolic pane l calcium total Rhoda Luna MD Work Phone: Start: 10-06-2024 Glucose blood reagent strip Rhoda Luna MD Work Phone: Start: 10-06-2024 Glucose blood reagent strip Rhoda Luna MD Work Phone: Start: 10-06-2024 Glucose blood reagent strip Rhoda Luna MD Work Phone: Start: 10-06-2024 BASIC METABOLIC PANE L W/ REFLEX TO MG FOR LOW K Sussy Mtz MD Work Phone: Start: 10-06-2024 End: 10-06-2024 Blood count complete auto&auto difrntl wbc Sussy Mtz MD Work Phone: Start: 10-06-2024 Quantitation drug no t elsewhere specified Mary Lou Tom DO Work Phone: Start: 10-05-2024 Glucose blood reagent strip Rhoda Luna MD Work Phone: Start: 10-05-2024 Glucose blood reagent strip Rhoda Luna MD Work Phone: Start: 10-05-2024 Echo transesophag r- t 2d w/prb img acquisj i&r Mary Lou Tom DO Work Phone: Start: 10-05-2024 Glucose blood reagent strip Rhoda Luna MD Work Phone: Start: 10-05-2024 LOOP RECORDER INSERT Toya Barkley MD Work Phone: Start: 10-05-2024 Percutaneous coronar y intervention Danis Barkley MD Work Phone: Start: 10-05-2024 Glucose blood reagent strip Rhoda Luna MD Work Phone: Start: 10-05-2024 EEG VIDEO MONITORING Rafa Restrepo [employer] Work Phone: Start: 10-05-2024 Electroencephalogram w/rec awake&drowsy Addy Brown DO Work Phone: Start: 10-05-2024 BASIC METABOLIC PANE L W/ REFLEX TO MG FOR LOW K Sussy Mtz MD Work Phone: Start: 10-05-2024 Blood count complete auto&auto difrntl wbc Sussy Mtz MD Work Phone: Start: 10-04-2024 Glucose blood reagent strip Rhoda Luna MD Work Phone: Start: 10-04-2024 Glucose blood reagent strip Rhoda Luna MD Work Phone: Start: 10-04-2024 GENERIC LABORATORY CHARGE Barretolandon Tom DO Work Phone: Start: 10-04-2024 End: 10-04-2024 Glucose body fluid other than blood Barretolandon Tom DO Work Phone: Start: 10-04-2024 Iadna nos amplified probe tq each organism Barreto J Negro DO Work Phone: Start: 10-04-2024 MENINGITIS ENCEPHALI TIS PANEL CSF, MOLECULAR Barreto J Negro DO Work Phone: Start: 10-04-2024 Syphilis test non-tr eponemal antibody qual Barreto J Negro DO Work Phone: Start: 10-04-2024 Diagnostic lumbar sp inal puncture w/fluor or ct Barretojunior Tom DO Work Phone: Start: 10-04-2024 Cytp flu washgs/brus hings xcpt c/v smrs interpj Barretoshira Tom DO Work Phone: Start: 10-04-2024 Glucose blood reagent strip Rhoda Luna MD Work Phone: Start: 10-04-2024 BASIC METABOLIC PANE L W/ REFLEX TO MG FOR LOW K Sussy S Wagner [employer] Work Phone: Start: 10-04-2024 Prothrombin time Lisy Tom DO Work Phone: Start: 10-04-2024 SURGICAL PATHOLOGY REPORT Mary Lou Tom DO Work Phone: Start: 10-03-2024 Glucose blood reagent strip Rhoda Luna MD Work Phone: Start: 10-03-2024 Glucose blood reagent strip Rhoda Luna MD Work Phone: Start: 10-03-2024 Assay of thiamine-vitamin b-1 Mary Lou Tom DO Work Phone: Start: 10-03-2024 GENERIC LABORATORY CHARGE Mary Lou Tom DO Work Phone: Start: 10-03-2024 T. PALLIDUM AB Mary Lou Tom DO Work Phone: Start: 10-03-2024 Glucose blood reagent strip Rhoda Luna MD Work Phone: Start: 10-03-2024 Myocardial spect mul tiple studies Aleja Wagoner [employer] - [employer]NAGER Work Phone: Start: 10-03-2024 Glucose blood reagent strip Rhoda Luna MD Work Phone: Start: 10-03-2024 BASIC METABOLIC PANE L W/ REFLEX TO MG FOR LOW K Sussy Mtz MD Work Phone: Start: 10-03-2024 Blood count complete auto&auto difrntl wbc Sussy Mtz MD Work Phone: Start: 10-02-2024 Glucose blood reagent strip Rhoda Luna MD Work Phone: Start: 10-02-2024 Glucose blood reagent strip Felix Hernandez DO Work Phone: Start: 10-02-2024 Glucose blood reagent strip Felix Hernandez DO Work Phone: Start: 10-02-2024 Glucose blood reagent strip Stanley Mckenzie MD Work Phone: Start: 10-02-2024 BASIC METABOLIC PANE L W/ REFLEX TO MG FOR LOW K Sussy Mtz MD Work Phone: Start: 10-02-2024 End: 10-02-2024 Blood count complete auto&auto difrntl wbc Sussy Mtz MD Work Phone: Start: 10-01-2024 End: 10-01-2024 Glucose blood reagent strip Stanley Mckenzie MD Work Phone: Start: 10-01-2024 Glucose blood reagent strip Stanley Mckenzie MD Work Phone: Start: 10-01-2024 Glucose blood reagent strip Stanley Mckenzie MD Work Phone: Start: 10-01-2024 EXTUBATION Aidee bryant MD Work Phone: Start: 10-01-2024 End: 10-01-2024 Calcium ionized Sirena Sanchez MD Work Phone: Start: 10-01-2024 BASIC METABOLIC PANE L W/ REFLEX TO MG FOR LOW K Sussy Mtz MD Work Phone: Start: 10-01-2024 Blood count complete auto&auto difrntl wbc Sussy Mtz MD Work Phone: Start: 10-01-2024 Lipid panel Sussy guerrero MD Work Phone: Start: 10-01-2024 ARTERIAL BLOOD GAS, POC Stanley Mckenzie MD Work Phone: Start: 10-01-2024 Gluc bld gluc mntr d ev cleared fda spec home use Stanley Mckenzie MD Work Phone: Start: 09-30-2024 Glucose blood reagent strip Stanley Mckenzie MD Work Phone: Start: 09-30-2024 Glucose blood reagent strip Stanley Mckenzie MD Work Phone: Start: 09-30-2024 End: 09-30-2024 Chloride urine Corey Echevarria MD Work Phone: Start: 09-30-2024 Mri brain brain stem w/o contrast material Addy Brown DO Work Phone: Start: 09-30-2024 Calcium ionized Sussy Mtz MD Work Phone: Start: 09-30-2024 Urinalysis microscopic only Sussy Mtz MD Work Phone: Start: 09-30-2024 Urnls dip stick/tabl et rgnt auto w/o microscopy Sussy Mtz MD Work Phone: Start: 09-30-2024 Glucose blood reagent strip Stanley Mckenzie MD Work Phone: Start: 09-30-2024 ARTERIAL BLOOD GAS, POC Stanley Mckenzie MD Work Phone: Start: 09-30-2024 End: 09-30-2024 Gluc bld gluc mntr dev cleared fda spec home use Stanley Mckenzie MD Work Phone: Start: 09-30-2024 LACTIC ACID,POINT OF CARE Stanley Mckenzie MD Work Phone: Start: 09-30-2024 BASIC METABOLIC PANE L W/ REFLEX TO MG FOR LOW K Sussy Mtz MD Work Phone: Start: 09-30-2024 Complement antigen e ach component Sussy Mtz MD Work Phone: Start: 09-29-2024 Glucose blood reagent strip Stanley Mckenzie MD Work Phone: Start: 09-29-2024 Echo tthrc r-t 2d w/ wom-mode compl spec&colr d Emily Muir MD Work Phone: Start: 09-29-2024 ANTI-XA, HEPARIN Ann Lopez MD Work Phone: Start: 09-29-2024 End: 09-29-2024 Basic metabolic panel calcium total Ann Lopez MD Work Phone: Start: 09-29-2024 Glucose blood reagent strip Stanley Mckenzie MD Work Phone: Start: 09-29-2024 Acute hepatitis panel M lina Lopez MD Work Phone: Start: 09-29-2024 ANTI-XA, HEPARIN Ann Lopez MD Work Phone: Start: 09-29-2024 End: 09-29-2024 Basic metabolic panel calcium total Ann Lopez MD Work Phone: Start: 09-29-2024 ARTERIAL BLOOD GAS, POC Stanley Mckenzie MD Work Phone: Start: 09-29-2024 End: 09-29-2024 Gluc bld gluc mntr dev cleared fda spec home use Stanley Mckenzie MD Work Phone: Start: 09-29-2024 LACTIC ACID,POINT OF CARE Stanley Mckenzie MD Work Phone: Start: 09-29-2024 End: 09-29-2024 Basic metabolic panel calcium total Ann Lopez MD Work Phone: Start: 09-29-2024 Glucose blood reagent strip Stanley Mckenzie MD Work Phone: Start: 09-29-2024 ANTI-XA, HEPARIN Ann Lopez MD Work Phone: Start: 09-29-2024 Glucose blood reagent strip Stanley Mckenzie MD Work Phone: Start: 09-28-2024 Us retroperitoneal r eal time w/image complete Ann Lopez MD Work Phone: Start: 09-28-2024 End: 09-28-2024 Basic metabolic panel calcium total Ann Lopez MD Work Phone: Start: 09-28-2024 Virus centrifuge enh ncd id imfluor stain ea Ann Lopez MD Work Phone: Start: 09-28-2024 End: 09-28-2024 Glucose blood reagent strip Stanley Mckenzie MD Work Phone: Start: 09-28-2024 ANTI-XA, HEPARIN Ann Lopez MD Work Phone: Start: 09-28-2024 End: 09-28-2024 Basic metabolic panel calcium total Ann Lopez MD Work Phone: Start: 09-28-2024 End: 09-28-2024 Assay of troponin quantitative Ann estrada MD Work Phone: Start: 09-28-2024 End: 09-28-2024 Iaad ia mult step method nos each organism Ann Lopez MD Work Phone: Start: 09-28-2024 STREP PNEUMONIAE ANTIGEN Ann Lopez MD Work Phone: Start: 09-28-2024 RESPIRATORY PANEL, M JANIYA, WITH COVID-19 Ann Lopez MD Work Phone: Start: 09-28-2024 Radiologic exam abdomen 1 view Stanley Mckenzie MD Work Phone: Start: 09-28-2024 Ecg routine ecg w/le ast 12 lds i&r only Ann Lopez MD Work Phone: Start: 09-28-2024 ARTERIAL BLOOD GAS, POC Stanley Mckenzie MD Work Phone: Start: 09-28-2024 BASIC METABOLIC PANE L W/ REFLEX TO MG FOR LOW K Ann Lopez MD Work Phone: Start: 09-28-2024 C-reactive protein Pablo Lopez MD Work Phone: Start: 09-28-2024 End: 09-28-2024 Calcium ionized Ann Lopez MD Work Phone: Start: 09-28-2024 GLYCOSYLATED HGB Ann Lopez MD Work Phone: Start: 09-28-2024 RESPIRATORY CARE AMALIA LUATION ONLY Ann Lopez MD Work Phone: Start: 09-28-2024 Radiologic exam ches t single view Rashad Chavez MD Work Phone: Start: 09-28-2024 Blood gases any comb ination ph pco2 po2 co2 hco3 Rashad Chavez MD Work Phone: Start: 09-28-2024 Assay of lactate Rashad Chavez MD Work Phone: Start: 09-28-2024 End: 09-28-2024 GLUCOSE, WHOLE BLOOD Rashad Chavez MD Work Phone: Start: 09-28-2024 Drug tst prsmv instr mnt chem analyzers pr date Rashad Arnaa Dimple [facility] Work Phone: Start: 09-28-2024 Urinalysis microscopic only Rashad Arana [employer]ple [employer] Work Phone: Start: 09-28-2024 Urnls dip stick/tabl et rgnt auto w/o microscopy Rashad Arana [facility]ple [facility] Work Phone: Start: 09-28-2024 BLOOD GAS, ARTERIAL Marcelino pramod Arana [employer]ple [employer] Work Phone: Start: 09-28-2024 Ct thorax w/contrast material Rashad Arana Dimple [employer] Work Phone: Start: 09-28-2024 Ecg routine ecg w/le ast 12 lds w/i&r Rashad Arana Dimple [facility] Work Phone: Start: 09-28-2024 End: 09-28-2024 Ct head/brain w/o contrast material Rashadsukhjinder Chavez MD Work Phone: Start: 09-28-2024 Blood typing serologic abo Rashad Arana Dimple [facility] Work Phone: Start: 09-28-2024 End: 09-28-2024 Comprehensive metabolic panel Rashad Arana Milka gabriel MD Work Phone: Start: 01-22-2024 Glucose blood reagent strip Trino Gilliland MD Work Phone: Start: 01-22-2024 Mri brain brain stem w/o contrast material Addy Chirri DO Work Phone: Start: 01-22-2024 Glucose blood reagent strip Tirno Gilliland MD Work Phone: Start: 01-22-2024 Glucose blood reagent strip Trino Gilliland MD Work Phone: Start: 01-22-2024 Basic metabolic pane l calcium total Gurmeet Gloria MD Work Phone: Start: 01-21-2024 Glucose blood reagent strip Trino Gilliland MD Work Phone: Start: 01-21-2024 Glucose blood reagent strip Sarmad Daly MD Work Phone: Start: 01-21-2024 Glucose blood reagent strip Sarmad Daly MD Work Phone: Start: 01-21-2024 Echo tthrc r-t 2d w/ wom-mode compl [...] total Xochitl Hampton MD Work Phone: Start: 1 End: 01-20-2024 Glucose blood reagent strip Sarmad [...] MD Work Phone: Start: 01-19-2024 RESPIRATORY PANEL, M OLECULAR, WITH COVID-19 Xochitl Hampton MD Work Phone: [...] Start: 01-19-2024 End: 01-19-2024 C-reactive protein Kaushal new MD Work Phone: Start: 01-19-2024 End: 01-19-2024 [...] 01-18-2024 Ct head/brain w/o contrast material Steve Alvarado MD Work Phone: Start: 01-18-2024 End: 01-18-2024 Basic metabolic panel calcium total Steve Alvarado MD Work Phone: Start: 01-18-2024 Hepatic function panel Steve Alvarado MD Work Phone: Start: 01-18-2024 Ecg routine ecg w/le ast 12 lds w/i&r Steve Avlarado MD Work Phone: Start: 01-18-2024 End: 01-18-2024 GLUCOSE, WHOLE BLOOD Steve Alvarado MD Work Phone: Start: 09-24-2023 Gluc bld gluc mntr d ev cleared fda spec home use Karl Bird MD Start: 09-24-2023 Gluc bld gluc mntr d ev cleared fda spec home use Karl Bird MD Start: 09-24-2023 Gluc bld gluc mntr d ev cleared fda spec home use Karl Bird MD Start: 09-24-2023 Gluc bld gluc mntr d ev cleared fda spec home use Karl Bird MD Start: 09-24-2023 Complete blood count with white cell differential, automated Cecil Golden Moncho [employer] Work Phone: Start: 09-24-[address] janessa Golden Moncho [employer] Work Phone: Start: 09-23-2023 Electroencephalogram w/rec awake&drowsy Aracely Walcott [employer] Work Phone: Start: 09-23-2023 Echo tthrc r-t 2d w/ wom-mode compl spec&colr d Cecil Golden Moncho [employer] Work Phone: Start: 09-23-2023 End: 09-23-2023 Renal function panel Cecil Golden Moncho [employer] Work Phone: Start: 09-23-2023 Gluc bld gluc mntr d ev cleared fda spec home use Karl Bird MD Start: 09-22-2023 Gluc bld gluc mntr d ev cleared fda spec home use Karl Bird MD Start: 09-22-2023 Gluc bld gluc mntr d ev cleared fda spec home use Karl Bird MD Start: 09-22-2023 Mri brain brain stem w/o contrast material Aracely Mariewood [employer] Work Phone: Start: 09-22-2023 End: 09-22-2023 Gluc bld gluc mntr dev cleared fda spec home use Karl Bird MD Start: 09-22-2023 Iadna multiple organ isms amplified probe tq Cecil Ivan [employer] Work Phone: Start: 09-22-2023 End: 09-22-2023 Drug tst prsmv instrmnt chem analyzers pr date Cecil Ivan [employer] Work Phone: Start: 09-22-2023 Gluc bld gluc mntr d ev cleared fda spec home use Karl Bird MD Start: 09-22-2023 Blood gases any comb ination ph pco2 po2 co2 hco3 Karl Bird MD Start: 09-22-2023 VENTILATOR SETTINGS Ken Bird MD Start: 09-22-2023 Gluc bld gluc mntr d ev cleared fda spec home use Karl Bird MD Start: 09-22-2023 Complete blood count with white cell differential, automated Reginaldo Beltran MD Work Phone: Start: 09-22-2023 End: 09-22-2023 Comprehensive metabolic panel Reginaldo benson MD Work Phone: Start: 09-22-2023 Gluc bld gluc mntr d ev cleared fda spec home use Karl Bird MD Start: 09-22-2023 Gluc bld gluc mntr d ev cleared fda spec home use Karl Bird MD Start: 09-21-2023 Gluc bld gluc mntr d ev cleared fda spec home use Karl Bird MD Start: 09-21-2023 Cultyp nuc acid amp prb cult/isolate ea orgjonathanm Karl Bird MD Start: 09-21-2023 Culture bacterial qu anttative [...] Lo wer Leg Muscle, Open Approach DR VINCENT WINTERS . Start: 04-19-2022 BASIC METABOLIC PANE L W/ REFLEX TO MG FOR LOW K Lulú J Bush DO Work Phone: Start: 04-19-2022 Prothrombin time Javeri a J Bush DO Work Phone: Start: 04-19-2022 Ct head/brain w/o co ntrast material Lulú J Bush DO Work Phone: Start: 04-04-2022 Ct head/brain w/o co ntrast material Cheng Lira MD Start: 04-04-2022 GLUCOSE, WHOLE BLOOD Se renée Lira MD Start: 04-04-2022 Blood count complete auto&auto difrntl wbc Cheng Lira MD Appendectomy Felix LUKE Incision and drainag e of abscess Felix LUKE Comment on above: left arm Plan of Treatment Date Care Activity Detail Author Start: 10-14-2025 GFR test (Diabetes, CKD 3-4, OR last GFR 15-59) GFR test (Diabetes, CKD 3-4, OR last GFR 15-59) [facility] Start: 10-06-2025 [facility] [employer] Start: 10-05-2025 GFR test (Diabetes, CKD 3-4, OR last GFR 15-59) GFR test (Diabetes, CKD 3-4, OR last GFR 15-59) [facility] Start: 10-01-2025 Lipid panel [facility] [employer] Start: 09-28-2025 GFR test (Diabetes, CKD 3-4, OR last GFR 15-59) GFR test (Diabetes, CKD 3-4, OR last GFR 15-59) [facility] Start: 09-28-2025 Hemoglobin A1c measurement [facility] [employer] Start: 01-21-2025 [facility] [email or web address] Start: 01-17-2025 GFR test (Diabetes, CKD 3-4, OR last GFR 15-59) GFR test (Diabetes, CKD 3-4, OR last GFR 15-59) [facility] Start: 12-11-2024 End: 12-11-2024 Patient encounter procedure 12/11/2024 2:30 PM EST Office Visit [employer] [facility] - [address] [address] Levi Keith MD [address] [place] [address] loop [employer] [facility] [place] Comment on above: loop Start: 11-02-2024 End: 10-02-2025 MR Brain WO and W contrast IV [facility] Start: 10-13-2024 End: 10-06-2025 Basic metabolic 2000 panel - Serum or Plasma [facility] Start: 06-17-2024 COVID-19 Vaccine () COVID-19 Vaccine () [facility] Start: 06-17-2024 [facility] Start: 05-17-2024 Influenza vaccination [facility] Start: 05-17-2024 [facility] Start: 04-19-2024 Hemoglobin A1c measurement [facility] Start: 12-20-2023 Shingles vaccine (1 of 2) Shingles vaccine (1 of 2) [facility] Start: 12-20-2023 [facility] Start: 06-17-2023 COVID-19 VACCINE (2022- season) COVID-19 VACCINE (2 - 2022- season) [facility] Start: 06-17-2023 Influenza vaccination INFLUENZA VACCINE (#1) [facility] Start: 06-17-2023 [facility] Start: 10-31-2022 Lipid panel [facility] Start: 10-27-2022 Hemoglobin A1c measurement A1C test (Diabetic or Prediabetic) [facility] Start: 06-17-2022 Influenza vaccination [facility] Start: 01-25-2022 Hemoglobin A1c measurement A1C test (Diabetic or Prediabetic) [facility] Start: 04-21-2021 COVID-19 Vaccine (2 - Booster for Asher series) COVID-19 Vaccine (2 - Booster for Asher series) [facility] Start: 2018 Screening for malignant neoplasm of colon [facility] Start: 2013 Lipid panel LIPID SCREENING [facility] Start: 1992 DTaP/Tdap/Td vaccine (1 - Tdap) DTaP/Tdap/Td vaccine (1 - Tdap) [facility] Start: 1992 Hepatitis B vaccine (1 of 3 - 19+ 3-dose series) Hepatitis B vaccine (1 of 3 - 19+ 3-dose series) [facility] Start: 1992 Hepatitis B vaccine (1 of 3 - Risk 3-dose series) Hepatitis B vaccine (1 of 3 - Risk 3-dose series) [facility] Start: 1992 Third diphtheria, tetanus and acellular pertussis (DTaP) vaccination TDAP (ADULT) [facility] Start: 1992 [facility] Start: 12-20-1991 Diabetic retinal exam Diabetic retinal exam [facility] Start: 12-20-1991 Glaucoma screening [facility] Start: 12-20-1991 Hepatitis C screening [facility] Start: 12-20-1991 Urine screening for protein [facility] Start: 1988 HIV screening [facility] Start: 1985 Depression Screen Depression Screen [facility] Start: 1985 [facility] Start: 12-20-1983 Diabetic foot examination [facility] Start: 12-20-1979 Pneumococcal 0-64 years Vaccine (1 - PCV) Pneumococcal 0-64 years Vaccine (1 - PCV) [facility] Start: 12-20-1979 Pneumococcal 0-64 years Vaccine (1 of 2 - PCV) Pneumococcal 0-64 years Vaccine (1 of 2 - PCV) [facility] Start: 12-20-1979 PNEUMOCOCCAL VACCINE SERIES (1 - PCV) PNEUMOCOCCAL VACCINE SERIES (1 - PCV) [facility] Start: 12-20-1979 [facility] Start: 1973 Hepatitis B vaccine (1 of 3 - 3-dose series) Hepatitis B vaccine (1 of 3 - 3-dose series) [facility] Start: 1973 Hepatitis C screening HEPATITIS C VIRUS SCREENING [facility] Start: 1973 Tetanus vaccination TETANUS [facility] Start: 1973 [facility] Bacteria identified in Blood by Culture [facility] End: 01-26-2024 Basic metabolic 2000 panel - Serum or Plasma [facility] Work Phone: End: 10-01-2024 Basic metabolic 2000 panel - Serum or Plasma Basic Metabolic Panel Lab Timed Every 4 Hours (Lab) for 3 Days starting 09/28/2024 until 10/01/2024 [facility] Comment on above: Every 4 Hours (Lab) for 3 Days starting 09/28/2024 until 10/01/2024 End: 10-09-2024 Basic metabolic 2000 panel - Serum or Plasma [facility] End: 01-19-2024 BRUCELLA SEROLOGY [facility] End: 01-25-2024 CBC W Auto Differential panel - Blood [facility] Continuous pulse oximetry TRIP N [facility] Continuous pulse oximetry [facility] End: 09-21-2023 CT Cervical spine WO contrast [facility] Comment on above: One Time for 1 Occurrences starting 03/2023 until 09/21/2023 CT Head WO contrast CT Head W/O Contrast Imaging CODE STROKE 01/18/2024 10:52 PM EDT [facility] Culture, Blood 1 [facility] End: 09-28-2024 Culture, Blood 1 [facility] Comment on above: One Time for 1 Occurrences starting 09/16 until 09/28/2024 End: 09-28-2024 Culture, Blood 2 [facility] Comment on above: One Time for 1 Occurrences starting 09/16 until 09/28/2024 Culture, CSF (with G natasha Stain) [facility] End: 01-19-2024 Culture, Respiratory [facility] EKG 12 Lead EKG 12 Lead ECG STAT 01/18/2024 10:42 PM EDT [facility] EKG 12 Lead EKG 12 Lead ECG STAT 09/28/2024 9:20 AM EST [facility] End: 01-22-2024 Electroencephalogram w/rec awake&drowsy [facility] Glucose [Mass/volume ] in Serum or Plasma [facility] End: 09-28-2024 Glucose [Mass/volume] in Serum or Plasma [facility] Comment on above: One Time for 1 Occurrences starting 09/16 until 09/28/2024 As Needed until disc ontinued starting 09/28/2024 Glucose [Mass/volume ] in Serum or Plasma [facility] End: 09-28-2024 Hemoglobin A1c/Hemoglobin.total in Blood [facility] Comment on above: One Time for 1 Occurrences starting 09/16 until 09/28/2024 End: 09-22-2023 HERPES SIMPLEX VIRUS (HSV) TYPES 1/2, DNA PCR [facility] Comment on above: One Time for 1 Occurrences starting 04/2023 until 09/22/2023 End: 01-19-2024 Lumbar Puncture [facility] Work Phone: End: 01-26-2024 Magnesium [Mass/volume] in Serum or Plasma [facility] [email or web address] End: 10-01-2024 Magnesium [Mass/volume] in Serum or Plasma Magnesium Lab Timed Every 4 Hours (Lab) for 3 Days starting 09/28/2024 until 10/01/2024 [facility] Comment on above: Every 4 Hours (Lab) for 3 Days starting 09/28/2024 until 10/01/2024 Mechanical Ventilati on with default initial settings Mechanical Ventilation with default initial settings Respiratory Care STAT Every 4hr until discontinued starting 09/28/2024 [facility] Comment on above: Every 4hr until discontinued starting End: 01-23-2024 METANEPHRINES URINE [facility] End: 01-22-2024 MISCELLANEOUS SENDOUT ENC2 [facility] - autoimmune/paraneoplastic encephalitis panel [facility] MISCELLANEOUS SENDOU T [place] lab test ID: ENC 2 [facility] End: 01-22-2024 Oligoclonal Banding [facility] Oxygen therapy [Mini mum Data Set] [facility] Oxygen therapy [Mini mum Data Set] [facility] [employer] End: 01-26-2024 Phosphate [Mass/volume] in Serum or Plasma [facility] [email or web address] End: 10-01-2024 Phosphate [Mass/volume] in Serum or Plasma Phosphorus Lab Timed Every 4 Hours (Lab) for 3 Days starting 09/28/2024 until 10/01/2024 [facility] Comment on above: Every 4 Hours (Lab) for 3 Days starting 09/28/2024 until 10/01/2024 End: 01-19-2024 Q FEVER ANTIBODY [facility] End: 09-28-2024 Radiologic exam abdomen 1 view XR ABDOMEN FOR NG/OG/NE TUBE PLACEMENT Imaging Routine Once for 1 Occurrences starting 09/28/2024 until 09/28/2024 [facility] Comment on above: Once for 1 Occurrences starting 09/28/20 until 09/28/2024 End: 10-05-2024 US Heart Transesophageal [facility] End: 01-19-2024 West Nile Virus, CSF [facility] Immunizations Immunization Date Immunization Notes Care Provider Fa cility 02-24-2021 SARS-CoV-2 (COVID-19 ) Ad26 vaccine, recombinant Felix LUKE [facility] Comment on above: Result Comment: 2023: TPV40 NEGATED: Highlighted row has not occurred!09-04-2019 influenza virus vaccine, unspecified formulation Felix MARLY [facility] Payers Date Payer Category Payer Unknown 1975 Unknown [id number] 2.16.84 [id number] 1975 Unknown [id number] 2.16.84 0.1.542077.3.579.2.593 1975 Unknown [id number] 2.16.84 0.1.283501.3.579.2.593 1973 Unknown [id number] 2.16.84 0.1.893622.3.579.2.593 1973 Unknown [id number] 2.16.84 0.1.259384.3.579.2.593 1973 Unknown [id number] 2.16.84 0.1.554511.3.579.2.593 1973 Unknown [id number] 2.16.84 0.1.376023.3.579.2.593 1973 Unknown [id number] 2.16.84 0.1.789970.3.579.2.593 1973 Unknown [id number] 2.16.84 0.1.746778.3.579.2.593 1973 Unknown [id number] 2.16.84 0.1.345070.3.579.2.593 1973 Unknown [id number] 2.16.84 0.1.697867.3.579.2.593 1973 Unknown [id number] 2.16.84 0.1.829799.3.579.2.593 1973 Unknown [id number] 2.16.84 0.1.419591.3.579.2.593 1973 Unknown [id number] 2.16.84 0.1.621518.3.579.2.593 1973 Unknown [id number] 2.16. 840.1.639250.3.579.2.196 1973 Unknown [id number] 2.16. 840.1.951509.3.579.2.196 1973 Unknown [id number] 2.16. 840.1.978579.3.579.2.196 1973 Unknown [id number] 2.16.84 0.1.603081.3.579.2.1286 1973 Unknown [id number] 2.16.8 40.1.916937.3.579.2.983 1973 Unknown [id number] 2.16.8 40.1.876517.3.579.2.727 1973 Unknown [id number] 2.16. 840.1.904115.3.579.2.175 1973 Unknown [id number] 2.16. 840.1.974373.3.579.2.175 1973 Unknown [id number] 2.16.8 40.1.739486.3.579.2.173 1973 Unknown [id number] 2.16.8 40.1.935208.3.579.2.173 1973 Unknown [id number] 2.16.8 40.1.288054.3.579.2.173 1961 Self-pay 1961 Unknown [id number] 1. [id number] Social History Date Type Detail Facility Start: 09-04-2019 End: 10-27-2021 Tobacco smoking status NHIS Never smoked tobacco [facility] Phone: Start: 10-27-2021 Tobacco use and exposure User of smokeless tobacco [facility] Phone: History of tobacco use Chews Tobacco [facility] Phone: Start: 04-04-2022 End: 10-08-2024 Alcohol intake Ex-drinker (finding) [facility] Phone: Start: 1975 Sex Assigned At Not on file B ON [employer] Phone: Start: 03-25-2022 End: 04-19-2022 Exposure to SARS-CoV-2 (event) Not sure [facility] Phone: Start: 09-23-2023 Tobacco use and exposure Smoke less tobacco non-user [employer] Start: 09-23-2023 End: 10-01-2024 History of Social function [facility] Start: 09-23-2023 End: 10-01-2024 Tobacco use panel [facility] Has the electric, [email or web address], [employer], or water company threatened to shut off services in your home in past 12Mo [facility] Medical Equipment Procedure Code Equipment Code Equipment Origin al Text Equipment Identifier Dates [id number], [id number] Start: 10-05-2024 Use it once daily [id number] Start: 10-06-2024 1 each by Does n ot apply route daily [id number] Start: 10-06-2024 Clinical Notes 04-19-2022 to 10-14-2024 Note Date & Type Note Facility 10-14-2024 Evaluation note Diagnosis Stage 3a chronic kidney disease (HCC) documented in this encounter [facility]-21-2024 History of Present illness Narrative* Delmy Anderson RN - 10/06/2024 9:43 PM EST RN went over discharge paperwork and education in full with patient and daughter. All questions answered. RN transported patient via wheelchair to the main lobby. RN assisted patient to private vehicle with daughter. Patient discharged with all belongings, meds to beds, paperwork, and loop recorder. * Jeny Luna - 10/06/2024 1:33 PM EST CLINICAL PHARMACY NOTE: MEDS TO BEDS Total # of Prescriptions Filled: 9 The following medications were delivered to the patient: ASPIRIN 81MG CHEW LANTUS LEVETIRACETAM 500 PEN NEEDLES ATORVASTATIN LOSARTAN HUMALOG AMLODIPINE CARVEDILOL Additional Documentation: DEL. X9 TO RN 10/06, 12:16P. $0. (2 FRIDGE). * Gabriela Rivas RN - 10/06/2024 11:52 AM EST RN called patient daughter for discharge today, to go over discharge education instructions since patient lives with her. Daughter will be able to transport after she is off work around 1900. * Mary Lou Tom DO - 10/06/2024 8:55 AM EST [facility] Neurology IN-PATIENT SERVICE NEUROLOGY PROGRESS NOTE Date: 10/06/2024 Patient name: Ortiz Gorman Date of admission: 09/28/2024 Date of : 1975 Interval History: No acute events. Remains at baseline, alert, oriented, attentive. No seizures or seizure-like activity. Anxious to be discharged. History of Present Illness: Per my partner: The patient is a 48 y.o. male who presents after being found down at home. . The patient was seen and examined and the chart was reviewed. Limited records in the chart, basedon outside hospital ED note patient was found down at home covered in feces this morning, confused and slurring his words. Reportedly his last known well was about 8:30 PM last night. He was taken tot ED at [facility]. Found to have significant elevation in his systolic blood pressure greater than 250s. Glucose was 820. Also noted to have ABHIJIT, elevated beta hydroxybutyrate, elevated troponins, lactic acidosis and ABG consistent with hypoxemia. He does have suppose it history of medication noncompliance and it is unclear if he has been off of his home medications recently. Patient was i ntubated for further airway protection and started on propofol drip. He was transferred to medical ICU at [facility]. Currently he is seen here at [place] ICU. Propofol drip is currently running. He had been on a Cardene drip for his elevated blood pressure but after being started on propofol blood pressures dropped on their own. Currently systolics in the 180s. Minimal response on examination at this time. Pupils are reactive, cough and gag is present. Withdrawing to pain in all 4 extremities. Patient was seen by our team back in January after initially coming in for headache and significant hypertension eventually being intubated. He had MRI brain which was abnormal showing hyperintensity in the perimesencephalic cistern region and bilateral cerebral convexities which could have been related to early meningitis versus remote subarachnoid hemorrhage. Patient underwent CSF studies which were noninfectious and no evidence of hemorrhage. Patient eventually improved and was extubated. He had repeat MRI brain done during that stay which showed improvement in the hyperintense regions although showed a new diffusion restriction in the right parietal lobe which could be related to stroke. Past Medical History: Past Medical History: Diagnosis Date Diabetes mellitus (HCC) Past Surgical History: Past Surgical History: Procedure Laterality Date APPENDECTOMY LEG SURGERY Right 10/30/2021 right intrarticular hip aspiration under fluro performed by Vincent Kuhn DO at [facility] OR Medications during admission: amLODIPine 10 mg Oral Daily losartan 50 mg Oral Daily levETIRAcetam 1,000 mg IntraVENous BID insulin lispro 0-8 Units SubCUTAneous 4x Daily AC & HS miconazole Topical BID insulin glargine 25 Units SubCUTAneous QAM carvedilol 25 mg Oral BID WC heparin (porcine) 5,000 Units SubCUTAneous 3 times per day sodium chloride flush 5-40 mL IntraVENous 2 times per day atorvastatin 40 mg Oral Nightly aspirin 81 mg Oral Daily Physical Exam: BP (!) 166/97 Pulse 72 Temp 98.2 F (36.8 C) (Oral) Resp 15 Ht 1.778 m (5' 10 ) Wt 82.3 kg(181 lb 7 oz) SpO2 95% BMI 26.03 kg/m Temp (24hrs), Av.2 F (36.8 C), Min:97.9 F (36.6 C), Max:98.6 F (37 C) Neurological examination: Mental status Awake, oriented to person, place ([facility]), time (09/2024), able to name days of theweek forward and backwards following all commands; speech is fluent, no dysarthria, aphasia. Cranial nerves II - left homonymous hemianopia; pupils reactive (4 mm OU) III, IV, - extraocular muscles intact; no [...] No tremors Sensory function Intact to touch, pin throughout Cerebellar Intact [id number] testing with mild bilateral kinetic tremor Reflex function 1/4 symmetric throughout . Downgoing plantar response bilaterally. (-)Freitas's sign bilaterally Gait Deferred Diagnostics: Laboratory Testing: CBC: Recent Labs 10/04/24 0525 10/05/24 0405 10/06/24 0545 WBC 8.0 6.5 7.2 HGB 9.8* 8.3* 8.8* PLT 225 198 210 BMP: Recent Labs 10/04/24 0525 10/05/24 0405 10/06/24 0545 NA 133* 135* 132* K 4.1 4.5 4.6 CL 102 103 102 CO2 23 BUN 40* 46* 47* CREATININE 1.8* 2.0* 2.1* GLUCOSE 161* 189* 250* Lab Results Component Value Date CHOL 177 10/01/2024 HDL 49 10/01/2024 TRIG 213 (H) 10/01/2024 ALT 24 09/28/2024 AST 29 09/28/2024 TSH 1.19 10/03/2024 INR 1.1 10/04/2024 LABA1C 09/28/2024 Sent to reference laboratory. Separate report to follow. LABA1C >16.5 (H) 09/28/2024 [id number] 10/03/2024 MG 2.2 09/29/2024 PHOS 4.5 09/29/2024 Imaging/Diagnostics: EEG: Day 1 - 10/03/24, starting at 14:35 Interictal EEG Samples: The background activity consisted of 6-7 Hz of polymorphic theta activity of 30 to 35 V. There was poor anterior-posterior amplitude gradient. Background showed state change and reactivity. The background was continuous. During behavioral sleep, rudimentary sleep spindles were seen over both hemispheres. Frequent paracentral spike waves were seen 50- 80 V, at times with diffuse spread and right hemispheric predominance. These discharges also appeared a periodic pattern at0.5 Hz frequency, waxing and waning.. The EKG channel revealed no abnormalities. Ictal EEG Recording / Patient Events: During this period the patient had at least five subclinical seizures. Electrographically, the seizure started as burst of sharply contoured 4 Hz activity maximal over the right central parietal leads, 30-40 V which then gradually evolved into frequency of 2 Hzspike waves spreading onto the right temporal leads and central leads. The seizures occurred at 1940, 1951, 1958, 2006 and 2050. Summary: On this day of recording, the patient experienced at least five subclinical seizures originating from the right central-parietal leads, characterized by sharply contoured theta activity spreading to adjacent leads. The interictal EEG was abnormal, showing diffuse polymorphic theta slowing c onsistent with mild encephalopathy. Frequent paracentral and right hemispheric spike-wave discharges conferred an increased risk for focal onset seizures. Monitoring was continued to capture the patient's typical events. The EKG channel showed no abnormalities. Day 2 - 10/04/24 Interictal EEG Samples: Interictal EEG was unchanged from yesterday. Previously seen right hemispheric sharp waves were not seen on today's recording. Ictal EEG Recording / Patient Events: During this period the patient had no events or seizures. Summary: During this day of recording no events were recorded. The interictal EEG was abnormal, showing diffuse polymorphic theta slowing consistent with mild encephalopathy. Monitoring was continuedto capture the patient's typical events. The EKG channel showed no abnormalities. Day 3 - 10/05/24, reviewed through 7:30 am Interictal EEG Samples: Interictal EEG was unchanged from yesterday. Ictal EEG Recording / Patient Events: During this period the patient had no events or seizures. The interictal EEG was abnormal, showing diffuse polymorphic theta slowing consistent with mild encephalopathy. Occasional paracentral and right hemispheric spike-wave discharges conferred an increased risk for focal onset seizures. Monitoring was continued to capture the patient's typical events. The EKG channel showed no abnormalities. ADRIAN BRYANT MD Diplomate, [place] Board of Psychiatry and Neurology Diplomate, [place] Board of Clinical Neurophysiology Diplomate, [place] Board of Epilepsy Results for orders placed during the hospital encounter of 09/28/24 MRI BRAIN WO CONTRAST Narrative EXAMINATION: MRI OF THE BRAIN WITHOUT CONTRAST 09/30/2024 11:32 am TECHNIQUE: Multiplanar multisequence MRI of the brain was performed without the administration of intravenous contrast. COMPARISON: 01/22/2024 HISTORY: ORDERING SYSTEM PROVIDED HISTORY: rule out PRES, stroke TECHNOLOGIST PROVIDED HISTORY: Rule out PRES, stroke Reason for Exam: rule out PRES, stroke Additional signs and symptoms: DKA, type 2, not at goal (HCC) FINDINGS: INTRACRANIAL STRUCTURES/VENTRICLES: There is abnormal increased T2/FLAIR signal intensity within the cortex and subcortical white matter of the right parietal lobe, right temporal lobe and right occipital lobe. There is a punctate focus of restricted diffusion within the cortex of the right parietal lobe. No acute intracranial hemorrhage. No mass effect or midline shift. No ventriculomegaly or abnormal extra-axial fluid collection present. The proximal portions of the [place] demonstrate normal flow voids. ORBITS: Limited evaluation of the orbits is unremarkable. SINUSES: Mild mucosal thickening is present within the paranasal sinuses. Trace fluid is present within the mastoid air cells. BONES/SOFT TISSUES: Bone marrow signal intensity is normal. Impression 1. Abnormal signal intensity within the cortex and subcortical white matter of the right parietal lobe, right temporal lobe and right occipital lobe in a distribution similar to the findings on the previous exam from 01/22/2024. Differential considerations include an encephalitis, postictal edema or asymmetric PRES (an uncommon presentation). 2. Punctate acute infarct within the cortex of the right parietal lobe. The findings were sent to the Radiology [facility] Communication [facility] at 1:34 pm on 09/30/2024 to be communicated to a licensed caregiver. Results for orders placed during the hospital encounter of 01/19/24 MRI BRAIN W WO CONTRAST Narrative EXAMINATION: [...] abnormal focus on brain or meningeal enhancement. Results for orders placed during the hospital encounter of 09/28/24 CT HEAD WO CONTRAST Narrative EXAMINATION: CT OF THE HEAD WITHOUT CONTRAST 09/28/2024 8:58 am TECHNIQUE: CT of the head was performed without the administration of intravenous contrast. Automated exposure control, iterative reconstruction, and/or weight based adjustment of the mA/kV was utilized to reduce the radiation dose to as low as reasonably achievable. COMPARISON: MRI brain performed 01/22/2024. HISTORY: ORDERING SYSTEM PROVIDED HISTORY: Stroke TECHNOLOGIST PROVIDED HISTORY: Stroke Decision Support Exception - unselect if not a suspected or confirmed emergency medical condition->Emergency Medical Condition (MA) FINDINGS: BRAIN/VENTRICLES: There is no acute intracranial hemorrhage, mass effect, or midline shift. There is satisfactory overall winkler-white matter differentiation. 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 The ventricular structures are symmetric and unremarkable. The infratentorial structures are unremarkable. ORBITS: The visualized portion of the orbits demonstrate no acute abnormality. SINUSES: The visualized paranasal sinuses and mastoid air cells demonstrate no acute abnormality. SOFT TISSUES/SKULL: No acute abnormality of the visualized skull or soft tissues. Impression No acute intracranial abnormality. Remote right parietal lobe infarct. I personally reviewed all of the above medications, clinical laboratory, imaging and other diagnostic tests. Impression: Right central/parietal onset subclinical seizures, resolved, in a patient with abnormal brain MRI with hyperintensity and diffusion restriction in right parietal region. Reviewed his MRI brain and compared to previous admission in January. I do think there is improvement in the FLAIR signal changes and diffusion restriction, noted with mild restriction in the posterior temporal region on the right.?postictal changes. He has an independent punctate area of acute infarction in the right parietal cortical region. Possible initial MRI in January was atypical presentation of infarct. The independent punctate diffusion restriction is suggestive of a new area of infarction. LP repeated. Protein and IgG index elevated. Infectious markers negative. Autoimmune panel pending. Obtained embolic workup including KEELEY-no acute findings. Loop recorder placed. Acute encephalopathy, resolved-now at baseline, in setting of above with additional metabolic confounders History of medication noncompliance Plan: Neurochecks per protocol Goal blood pressure normotensive Continue Keppra 1000 twice daily for now. Level wnl. Will need repeat MRI brain outpatient in 4 weeks (ordered) Continue aspirin, statin. Aggressive vascular risk factor modification. Stressed importance of medication compliance and close follow-up. PT/OT. Follow-up with neurology outpatient in 3 to 4 weeks. Stable for DC from neurological standpoint. Please call if any further questions. Discussed with primary attending, Dr. uLna. In addition to seizure medications, therapeutic lifestyle changes may also reduce the likelihood ofseizures. These modifications include avoiding excessive alcohol use, obtaining adequate and appropriate sleep, and reducing stress. Seizure and epilepsy safety was also outlined. Specifically, we reviewed that he would not be able to operate a motor vehicle in the [facility] [place] until he has been seizure free for 6 months. Other restrictions were reviewed including operating heavy or electrical machinery, swimming alone, navigating heights, or engaging in any activity that may be injurious to him or others if there was an unexpected loss of consciousness or loss of function. The potential risks from seizures including aspiration pneumonia, vertebral compression fracture, shoulder/mandible dislocation, head trauma, haq, drowning, and (SUDEP) were briefly reviewed. The potential for neuronal injury from prolonged seizures or status epilepticus was discussed. Mary Lou Tom DO [facility] * Chung Noel MD - 10/06/2024 8:33 AM EST NEPHROLOGY PROGRESS NOTE ASSESSMENT Acute kidney injury nonoliguric secondary to ischemic ATN from hypertensive emergency/osmotic diuresis related to DKA complicated further by contrast exposure -improving creatinine peaked to 2.5 stabilizing around 2.0 Chronic kidney disease stage III secondary to diabetic nephrosclerosis with baseline creatinine of 1.4-1.6 Nonnephrotic range proteinuria with last UPC 2.5 Diabetic ketoacidosis. Resolved Hypertensive emergency manifesting as ABHIJIT/PRESS Left lower lobe pneumonia Acute hypoxic respiratory failure secondary to #4/#5/#6 with pain status post extubation PLAN Continue Losartan 50. Creatinine stabilized at around 2.0 .Continues to have good urine output. Likely stable to be discharged from nephrology standpoint. Will need BMP in 1 Week and faxed to Dr. Sanchez at [phone] . Will need to follow up with in 3-4 weeks time. Please wait for attendings final attestation. SUBJECTIVE Hospitalized when found down/altered mental sensorium with initial assessment disclosing hypertensive emergency with elevated creatinine and diabetic ketoacidosis along with left lower lobe pneumonia. Currently being managed with decubital call as well as antibiotics which she has shown good response. Patient seen and examined at Bedside.Chart and results Reviewed. No acute events reported overnight. Denies any new complaints and issues. Reports good urine output. He is hemodynamically stable. No acute distress. Saturating well on room air. Blood pressure systolic around 130-170. Currently on Norvasc 5, Coreg 25 twice daily, Cozaar 50. Documented urine output last 24 hours 2.3L Is wanting to go home. OBJECTIVE Vitals: 10/06/24 0500 10/06/24 0540 10/06/24 0600 10/06/24 0710 BP: (!) 162/98 (!) 166/97 Pulse: 76 76 74 72 Resp: 18 19 15 15 Temp: 98.3 F (36.8 C) 98.2 F (36.8 C) TempSrc: Oral Oral SpO2: 93% 97% 95% 95% Weight: Height: 24HR INTAKE/OUTPUT: Intake/Output Summary (Last 24 hours) at 10/06/2024 0833 Last data filed at 10/06/2024 0641 Gross per 24 hour Intake 1285 ml Output 1775 ml Net -490 ml General appearance:Awake, alert, in no acute distress HEENT: PERRLA Respiratory::vesicular breath sounds,no wheeze/crackles Cardiovascular:S1 S2 normal,no gallop or organic murmur. Abdomen:Non tender/non distended.Bowel sounds present Extremities: No Cyanosis or Clubbing,Lower extremity edema Neurological:Alert and oriented.No abnormalities of mood, affect, memory, mentation, or behavior are noted MEDICATIONS Scheduled Meds: amLODIPine 10 mg Oral Daily losartan 50 mg Oral Daily levETIRAcetam 1,000 mg IntraVENous BID insulin lispro 0-8 Units SubCUTAneous 4x Daily AC & HS miconazole Topical BID insulin glargine 25 Units SubCUTAneous QAM carvedilol 25 mg Oral BID WC heparin (porcine) 5,000 Units SubCUTAneous 3 times per day sodium chloride flush 5-40 mL IntraVENous 2 times per day atorvastatin 40 mg Oral Nightly aspirin 81 mg Oral Daily Continuous Infusions: dextrose sodium chloride 10 mL/hr at 10/02/24 0721 PRN Meds: sodium chloride flush, sodium chloride flush, glucose, dextrose bolus OR dextrose bolus, glucagon (rDNA), dextrose, hydrALAZINE, sodium chloride flush, sodium chloride, potassium chloride OR potassium chloride, magnesium sulfate, ondansetron OR ondansetron, polyethylene glycol, acetaminophen OR acetaminophen, magnesium sulfate, sodium phosphate 15 mmol in sodium chloride0.9 % 250 mL IVPB, labetalol Home Meds: Medications Prior to Admission: insulin lispro (HUMALOG) 100 UNIT/ML SOLN injection vial, Inject 0-16 Units into the skin 3 times daily (with meals) folic acid (FOLVITE) 1 MG tablet, Take 1 tablet by mouth daily [DISCONTINUED] insulin glargine (LANTUS SOLOSTAR) 100 UNIT/ML injection pen, Inject 20 Units into the skin nightly [DISCONTINUED] carvedilol (COREG) 12.5 MG tablet, Take 1 tablet by mouth 2 times daily (with meals) [DISCONTINUED] NIFEdipine (PROCARDIA XL) 30 MG extended release tablet, Take 1 tablet by mouth daily INVESTIGATIONS Last 3 CMP: Recent Labs 10/04/24 0525 10/05/24 0405 10/06/24 0545 NA 133* 135* 132* K 4.1 4.5 4.6 CL 102 103 102 CO2 23 BUN 40* 46* 47* CREATININE 1.8* 2.0* 2.1* CALCIUM 7.9* 7.9* 8.3* Last 3 CBC: Recent Labs 10/04/24 0525 10/05/24 0405 10/06/24 0545 WBC 8.0 6.5 7.2 RBC 3.48* 2.93* 3.09* HGB 9.8* 8.3* 8.8* HCT 29.9* 25.8* 26.5* MCV 85.9 88.1 85.8 MCH 28.2 28.3 28.5 MCHC 32.8 32.2 33.2 RDW 12.9 13.0 13.0 PLT 225 198 210 MPV 10.7 10.4 10.1 Please do not hesitate to call with questions This note is created with the assistance of a speech-recognition program. While intending to generate a document that actually reflects the content of the visit, no guarantees can be provided that every mistake has been identified and corrected by editing Corey Echevarria MD Internal Medicine Resident, PGY-[facility]; [place], [place] 10/06/2024, 8:33 AM Attending Physician Statement I have discussed the care of Ortiz Gorman, including pertinent history and exam findings, with the Fellow/Residentt. I have reviewed the swartz elements of all parts of the encounter with the Fellow/ Resident. I agree with the assessment, plan and orders as documented by the resident. Chung Kasmani, MD MD, MRCP (), FACP 10/06/2024 4:11 PM [facility] * Drew Trudi, PT - 10/05/2024 3:32 PM EST Physical Therapy Facility/Department: [address] [facility] Physical Therapy Initial Evaluation Patient Name: Ortiz Gorman : 1975 Date of Service: 10/05/2024 The patient is a 48 y.o. male who presents after being found down at home.The patient was seen andexamined and the chart was reviewed. Limited records in the chart, based on outside hospital ED note patient was found down at home covered in feces this morning, confused and slurring his words. Reportedly his last known well was about 8:30 PM last night. He was taken to the ED at [facility].Found to have significant elevation in his systolic blood pressure greater than 250s. Glucose was 820. Also noted to have ABHIJIT, elevated beta hydroxybutyrate, elevated troponins, lactic acidosis and ABG consistent with hypoxemia. He does have suppose it history of medication noncompliance and it is unclear if he has been off of his home medications recently. Patient was intubated for further airway protection and started on propofol drip. He was transferred to medical ICU at [facility]. Past Medical History: has a past medical history of Diabetes mellitus (HCC). Past Surgical History: has a past surgical history that includes Appendectomy and Leg Surgery (Right, 10/30/2021). Discharge Recommendations Discharge Recommendations: Patient would benefit from continued therapy after discharge PT Equipment Recommendations Equipment Needed: Yes Mobility Devices: Walker Walker: Rolling Assessment Body Structures, Functions, Activity Limitations Requiring Skilled Therapeutic Intervention: Decreased functional mobility , Decreased strength, Decreased posture, Decreased endurance, Decreased cognition, Decreased balance Assessment: Pt ambulated 125ft w/ RW CGA, ascend/descend 2 stairs with bilateral rails, pt demonstrating mild unsteadiness and decreased awareness of deficits requiring verbal cueing to decrease fallrisk. Recommending continued skilled physical therapy to address continued gait and balance training to return pt to prior level of independence. Therapy Prognosis: Good Decision Making: Medium Complexity Requires PT Follow-Up: Yes Activity Tolerance Activity Tolerance: Patient tolerated treatment well Safety Devices Type of Devices: Call light within reach, Gait belt, Nurse notified, Left in bed, Bed alarm in place Restraints Restraints Initially in Place: No AM-[facility] Basic Mobility - Inpatient How much help is needed turning from your back to your side while in a flat bed without using bedrails?: None How much help is needed moving from lying on your back to sitting on the side of a flat bed withoutusing bedrails?: None How much help is needed moving to and from a bed to a chair?: None How much help is needed standing up from a chair using your arms?: None How much help is needed walking in hospital room?: A Little How much help is needed climbing 3-5 steps with a railing?: A Little [facility] Inpatient Mobility Raw Score : 22 [facility] Inpatient T-Scale Score : 53.28 Mobility Inpatient CMS 0-100% Score: 20.91 Mobility Inpatient [facility] G-Code Modifier : CJ Restrictions/Precautions Restrictions/Precautions Activity Level: Up as Tolerated Required Braces or Orthoses?: No Subjective General Patient assessed for rehabilitation services?: Yes Response To Previous Treatment: Not applicable Family/Caregiver Present: No Follows Commands: Within Functional Limits General General Comments: Pt denying pain at time of session. Subjective Subjective: RN and pt in agreement for PT eval. Pt supine in bed upon PT arrival, pt pleasant and cooperative throughout session. O2 Device: None (Room air) Pain Pre-Pain: 0 Post-Pain: 0 Home Setup/Prior Level of Function Social/Functional History Lives With: Daughter (Yamileth) Type of Home: House Home Layout: Two level, Able to Live on Main level with bedroom/bathroom Home Access: Stairs to enter with rails Entrance Stairs - Number of Steps: 3 Entrance Stairs - Rails: Right Bathroom Shower/Tub: Tub/Shower unit Bathroom Toilet: Standard Bathroom Equipment: Shower chair Home Equipment: Walker - Rolling Has the patient had two or more falls in the past year or any fall with injury in the past year?: No Receives Help From: Family Prior Level of Assist for ADLs: Independent Prior Level of Assist for Homemaking: Independent Homemaking Responsibilities: Yes Prior Level of Assist for Ambulation: Independent household ambulator, with or without device (Pt independently ambulates with no AD at baseline) Prior Level of Assist for Transfers: Independent Active Panelboard Tank Pumper: Yes Mode of Transportation: Truck 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 Vision/Hearing Vision Vision: Impaired Vision Exceptions: Wears glasses at all times (Pt reports increased bluriness of visual field, demonstrates decreased perpherial vision of L eye) Hearing Hearing: Within functional limits Objective Orientation Overall Orientation Status: Within Functional Limits Cognition Overall Cognitive Status: Exceptions Safety Judgement: Decreased awareness of need for assistance Insights: Decreased awareness of deficits Joint Mobility ROM RLE: WFL ROM LLE: WFL ROM RUE: WFL ROM LUE: WFL Strength RLE Strength RLE: WFL Strength LLE Strength LLE: WFL Strength RUE Strength RUE: WFL Strength LUE Strength LUE: WFL Mobility Bed mobility Sit to Supine: Stand by assistance Scooting: Stand by assistance Bed Mobility Comments: HOB ~30 degrees Transfers Sit to Stand: Contact guard assistance Stand to Sit: Contact guard assistance Comment: STS performed x2 to perform from EOB, verbal cueing required for proper hand placement with good return demo. Ambulation Surface: Level tile Device: Rolling Walker Assistance: Contact guard assistance Quality of Gait: Narrow KRISTAN; scissoring gait Gait Deviations: Slow Kirstie;Staggers Distance: 125ft Comments: Pt mildly unsteadiness with ambulation, intermittent loss of balance noted with ambulation independently corrected. Pt demonstrates mild decreased awareness of deficits requiring verbal cueing throughout. More Ambulation?: No Stairs/Curb Stairs?: Yes Stairs # Steps : 2 Stairs Height: 6 Rails: Bilateral Device: No Device Assistance: Contact guard assistance Comment: Pt ascend/descend in non-reciporcal pattern, mild unsteadiness noted. Balance Balance Posture: Fair Sitting - Static: Good Sitting - Dynamic: Good, - Standing - Static: Fair, + Standing - Dynamic: Fair Comments: standing balance assessed w/ RW; pt able to sit EOB independently Plan Physical Therapy Plan General Plan: (5x/week) Current Treatment Recommendations: Strengthening, Balance training, Endurance training, Safety education & training, Patient/Caregiver education & training, Therapeutic activities, Functionalmobility training, Transfer training, Gait training, Stair training, Equipment evaluation, education, & procurement, Home exercise program Goals Patient Goals Patient Goals : To go home Short Term Goals Time Frame for Short Term Goals: 14 visits Short Term Goal 1: Pt to perform bed mobility independently Short Term Goal 2: Pt to demonstrate functional transfers independently Short Term Goal 3: Ambulate 300ft w/ no AD independently Short Term Goal 4: Ascend/descend 3 stairs with R rail independently Minutes PT Individual Minutes Time In: 1407 Time Out: 1434 Minutes: 27 Time Code Minutes Timed Code Treatment Minutes: 8 Minutes * Irena Piña, OT - 10/05/2024 3:21 PM EST Occupational Therapy Initial Evaluation Facility/Department: [address] [facility] Patient Name: Ortiz Gorman : 1975 Date of Service: 10/05/2024 Chief Complaint Patient presents with Altered Mental Status Patient known diabetic, found by family this am on floor. Last known well was 830 PM last night Past Medical History: has a past medical history of Diabetes mellitus (HCC). Past Surgical History: has a past surgical history that includes Appendectomy and Leg Surgery (Right, 10/30/2021). Discharge Recommendations Discharge Recommendations: Patient would benefit from continued therapy after discharge OT Equipment Recommendations Equipment Needed: No Assessment Performance deficits / Impairments: Decreased functional mobility ;Decreased ADL status;Decreased safe awareness;Decreased balance Assessment: CGA for functional mobility with RW support as well as for LB ADL's at this time. Functional mobility trialed without AE with pt reaching out for external support. Unsteady on feet overall. Pt requires 24/7 support at this time for safety. Pt would benefit from continued therapy to increase IND and safety in ADL tasks prior to return home from acute setting Prognosis: Good Decision Making: Medium Complexity REQUIRES OT FOLLOW-UP: Yes Activity Tolerance Activity Tolerance: Patient Tolerated treatment well Safety Devices Type of Devices: Call light within reach;Gait belt;Nurse notified;Left in bed;Bed alarm in place Restraints Restraints Initially in Place: No AM-PAC AM-PAC Daily Activity - Inpatient How much help is needed for putting on and taking off regular lower body clothing?: A Little How much help is needed for bathing (which includes washing, rinsing, drying)?: A Little How much help is needed for toileting (which includes using toilet, bedpan, or urinal)?: A Little How much help is needed for putting on and taking off regular upper body clothing?: None How much help is needed for taking care of personal grooming?: None How much help for eating meals?: None AM-PAC Inpatient Daily Activity Raw Score: 21 AM-PAC Inpatient ADL T-Scale Score : 44.27 ADL Inpatient CMS 0-100% Score: 32.79 ADL Inpatient CMS G-Code Modifier : CJ Restrictions/Precautions Restrictions/Precautions Activity Level: Up as Tolerated Required Braces or Orthoses?: No Subjective General Patient assessed for rehabilitation services?: Yes Family / Caregiver Present: No General Comment Comments: RN okayed for therapy. Pt agreeable and cooperative throughout. Pt denies pain. Home Setup/Prior Level of Function Social/Functional History Lives With: Daughter (Yamileth) Type of Home: House Home Layout: Two level;Able to Live on Main level with bedroom/bathroom Home Access: Stairs to enter with rails Entrance Stairs - Number of Steps: 3 Entrance Stairs - Rails: Right Bathroom Shower/Tub: Tub/Shower unit Bathroom Toilet: Standard Bathroom Equipment: Shower chair Home Equipment: Walker - Rolling Has the patient had two or more falls in the past year or any fall with injury in the past year?: No Prior Level of Assist for ADLs: Independent Prior Level of Assist for Homemaking: Independent Homemaking Responsibilities: Yes Prior Level of Assist for Ambulation: Independent household ambulator, with or without device (Pt independently ambulates with no AD at baseline) Prior Level of Assist for Transfers: Independent Active Panelboard Tank Pumper: Yes Mode of Transportation: Truck 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 Vision/Hearing Vision Vision: Impaired Vision Exceptions: (L eye visual loss from prior CVA. Acute blurred vision) Hearing Hearing: Within functional limits BUE Assessment Gross Assessment AROM: Within functional limits Strength: Within functional limits (4/5 BUE grossly) Coordination: Within functional limits (L handed) Tone: Normal Sensation: Impaired (neuropathy) Objective Orientation Overall Orientation Status: Within Functional Limits Cognition Overall Cognitive Status: Exceptions Safety Judgement: Decreased awareness of need for assistance Insights: Decreased awareness of deficits Activities of Daily Living Feeding: Independent Grooming: Independent UE Bathing: Supervision LE Bathing: Contact guard assistance UE Dressing: Independent UE Dressing Skilled Clinical Factors: gown donned around pt back without difficulty LE Dressing: Contact guard assistance LE Dressing Skilled Clinical Factors: Pt demo functional reach needed to mange socks seated EOB. CGA expected for management of pants in standing Toileting: Contact guard assistance Additional Comments: Scores based on clinical reasoning unless otherwise stated. Pt balance impacting performance overall Balance Balance Sitting: Intact Standing: With support (CGA with RW support. ~10 mins longest trial) Transfers/Mobility Bed mobility Sit to Supine: Stand by assistance Scooting: Stand by assistance Bed Mobility Comments: HOB ~30 degrees Transfers Sit to stand: Contact guard assistance Stand to sit: Contact guard assistance Transfer Comments: cues for hand placement with Good return Functional Mobility: Contact guard assistance;Adaptive equipment Functional Mobility Skilled Clinical Factors: Houshold distances performed with RW support including stairs. Mobility trialed briefly without device however pt reaching for external support. Overall unsteady narrow KRISTAN at times and near crossing of feet when turning. Cues to correct. Patient Education Patient Education Education Given To: Patient Education Provided: Role of Therapy;Plan of Care;Transfer Training;Mobility Training;Equipment Education Provided Comments: discharge planning and recomendations, recommended use of RW for support, hand placement for transfers Education Method: Verbal Barriers to Learning: None Education Outcome: Verbalized understanding;Demonstrated understanding;Continued education needed Goals Short Term Goals Time Frame for Short Term Goals: By discharge; Pt will Short Term Goal 1: Complete UB ADL's IND Short Term Goal 2: Complete LB ADL's IND Short Term Goal 3: Demo Good safety throughout session without cuing Short Term Goal 4: Complete functional transfers/mobility Mod-I with LRAD Plan Occupational Therapy Plan Times Per Week: 3-4x/week Current Treatment Recommendations: Balance training, Functional mobility training, Safety education& training, Patient/Caregiver education & training, Self-Care / ADL, Home management training, Equipment evaluation, education, & procurement Minutes OT Individual Minutes Time In: 1407 Time Out: 1433 Minutes: 26 Time Code Minutes Timed Code Treatment Minutes: 8 Minutes * Joseline Teague RN - 10/05/2024 12:37 PM EST Inpatient Diabetes Education I have been working with Ortiz Gorman over the duration of this admission. His staff nurse, Gabriela phoned our unit and states that his daughter is available by phone. Lab Results Component Value Date LABA1C 09/28/2024 Sent to reference laboratory. Separate report to follow. LABA1C >16.5 (H) 09/28/2024 LABA1C 09/28/2024 Sent to reference laboratory. Separate report to follow. I called Laura at [phone]. We discussed monitoring blood sugar and taking insulin. Educational materials taken to room. RECOMMENDATIONS FOR OUTPATIENT PLAN: Diabetes Self-Monitoring Supplies: _X__ Preferred / formulary blood glucose meter for BGSM at home use _X__ Strips and lancets for qid frequency of home BGSM Diabetes Medications: _X__ Insulin Pen Basal / long acting - dose per MD __X_ Insulin Pen Bolus pre meal set dose or carb cting and/or correction scale - dose per MD __X_ Insulin Delivery method - Pens - order Insulin Pen Needle 31G X 4 mm MISC ___ Insulin Delivery method - Syringe - order Insulin syringe Needle U 100 31G X 15/64 0.5ml Diabetes Education / HCP follow -up: _X__ Follow -up with HCP / PCP within one week. KOURTNEY STRAUSS RN * Kevin Sifuentes APRN - PARKER - 10/05/2024 11:29 AM EST Neurology Nurse Practitioner Progress Note INTERVAL HISTORY: This is a 48 y.o. male admitted 09/28/2024 for management of hypertensive encephalopathy and DKA. This is a follow-up neurology progress note. The patient was examined and the chartwas reviewed. Discussed with the pt & RN. There were no acute events overnight. No new motor, sensory, visual or bulbar symptoms. Pt s/p loop recorder placement (10/05). Patient has been back to his baseline mentation per family at the bedside. He is eager to go home. SO & daughter at the bedside; answered all the questions in detail. HPI: Ortiz Gorman is a 48 y.o. male with H/O prior R parieto-occipital infarct, polysubstance abuse (benzos & MDMA), HTN, HLD, uncontrolled DM, medication noncompliance, CKD, PVD, cervical radiculopathy, who was admitted as a transfer from [facility] on 09/28/2024 for management of hypertensive encephalopathy and DKA. As per medical records daughter found the patient confused on the bathroom floor covered in urine and feces. Last known well was the night of 09/27/2024; unsure about exact time. Family reported similar prior episodes in the setting of medication noncompliance. EMS were called who transferred the patient to [facility] on the morning of 09/28/2024. Upon arrival BP 157/76 mmHg -> 225/110 mm Hg, heart rate 115, Tmax 100.9 F, respiratory rate 25. Patient wasalert and oriented to self only, had dysarthric speech, unable to follow commands but was withdrawing in all 4 limbs. There was concern for flattened left nasolabial fold. Initial NIH score was 6. CThead and CTA head and neck - negative. While in ED patient had coffee-ground emesis. Lab work was concerning for ABHIJIT and DKA with blood glucose level 820. Started on insulin drip. Patient required intubation and sedated for airway protection. Cardene drip was started. Later patient required Ativan and fentanyl infusion due to agitation while intubated. Patient was transferred to [facility] for ICU admis george on 09/28/2024. Neurology was consulted for altered mentation. Family reported that patient was intermittently confused and cognitively slow for 3 to 4 weeks after the last discharge. Patient is known to our service from his previous admissions; was seen in 01/2024 with hypertensive encephalopathy. MRI brain with and without contrast was abnormal with high FLAIR signal changes are seen in perimesencephalic cistern & b/l cerebral convexities, remote SAH versus early meningitis. CSF - negative. Repeat MRI brain wo contrast - new area of diffusion restriction and hyperintensity in right frontal and parietal region, likely stroke. Apparently patient had a similar admission in09/2023 at [facility] with hypertensive crisis, acute respiratory failure requiring intubation. However at that time MDMA was positive. [START ON 10/06/2024] amLODIPine 10 mg Oral Daily losartan 50 mg Oral Daily levETIRAcetam 1,000 mg IntraVENous BID insulin lispro 0-8 Units SubCUTAneous 4x Daily AC & HS miconazole Topical BID insulin glargine 25 Units SubCUTAneous QAM carvedilol 25 mg Oral BID WC heparin (porcine) 5,000 Units SubCUTAneous 3 times per day sodium chloride flush 5-40 mL IntraVENous 2 times per day atorvastatin 40 mg Oral Nightly aspirin 81 mg Oral Daily Past Medical History: Diagnosis Date Diabetes mellitus (HCC) Past Surgical History: Procedure Laterality Date APPENDECTOMY LEG SURGERY Right 10/30/2021 right intrarticular hip aspiration under fluro performed by Vincent Kuhn DO at [facility] OR PHYSICAL EXAM: Blood pressure (!) 154/81, pulse 77, temperature 97.9 F (36.6 C), temperature source Oral, resp. rate 14, height 1.778 m (5' 10 ), weight 82.3 kg (181 lb 7 oz), SpO2 92%. ROS: Constitutional Negative for fever and chills HEENT [...] for suicidal ideation. Patient is not anxious Neurological Examination: Mental status Alert and oriented x 3; able to follow all commands; speech was fluent, no dysarthria, aphasia; no hallucinations or delusions Cranial nerves II -L homonymous hemianopsia; pupils reactive III, IV, - extraocular muscles intact; no PRESTON; no nystagmus; no ptosis V - normal facial sensation VII - normal facial symmetry VIII - intact hearing IX, X - symmetrical palate elevation XI - symmetrical shoulder shrug XII - midline tongue without atrophy or fasciculation Motor function Strength: Able to raise all limbs antigravity Normal bulk and tone Sensory function Grossly intact Cerebellar No visible tremors Reflex function 2/4 symmetric throughout Plantars - flexor Gait Not tested DATA Lab Results Component Value Date WBC 6.5 10/05/2024 RBC 2.93 (L) 10/05/2024 HGB 8.3 (L) 10/05/2024 HCT 25.8 (L) 10/05/2024 PLT 198 10/05/2024 ALT 24 09/28/2024 AST 29 09/28/2024 NA 135 (L) 10/05/2024 K 4.5 10/05/2024 MG 2.2 09/29/2024 PHOS 4.5 09/29/2024 CL 103 10/05/2024 AMMONIA 27 09/28/2024 CREATININE 2.0 (H) 10/05/2024 BUN 46 (H) 10/05/2024 CO2 24 10/05/2024 TSH 1.19 10/03/2024 INR 1.1 10/04/2024 [id number] 10/03/2024 FOLATE 11.5 10/03/2024 LABA1C 09/28/2024 Sent to reference laboratory. Separate report to follow. LABA1C >16.5 (H) 09/28/2024 Lab Results Component Value Date CHOL 177 10/01/2024 CHOL 136 10/31/2021 Lab Results Component Value Date TRIG 213 (H) 10/01/2024 TRIG 62 01/20/2024 TRIG 139 10/31/2021 Lab Results Component Value Date HDL 49 10/01/2024 HDL 31 (L) 10/31/2021 Lab Results Component Value Date LDL 85 10/01/2024 LDL 77 10/31/2021 Lab Results Component Value Date VLDL 43 (H) 10/01/2024 VLDL NOT REPORTED 10/31/2021 Lab Results Component Value Date CHOLHDLRATIO 3.6 10/01/2024 CHOLHDLRATIO 4.4 10/31/2021 CSF STUDY: 10/04/24 11:35 Albumin Index 143.7 (H) Albumin, CSF 431 (H) Appearance, CSF Clear Glucose, CSF 73 (H) IgG Index, CSF 0.81 (H) IgG Synthesis Rate, CSF 18.0 (H) IgG, CSF 9.0 (H) VDRL Negative Lyme disease Ab Pending ENC2 Pending Protein, CSF 78.9 (H) Cx Negative West Nile virus Pending Cytology Negative RBC, CSF 3 (H) Total Nucleated Cells CSF 2 Meningitis panel Negative 10/03/24 14:24 T. pallidum, IgG Negative 09/29/24 06:54 CLAUDIO Negative Anti ds DNA 0.6 DIAGNOSTIC DATA: CT HEAD (09/28/2024): Remote R parietal lobe infarct CTA HEAD & NECK (09/28/2024): No significant LVO MRI BRAIN (09/30/2024): 1. Abnormal signal intensity within the cortex & subcortical white matter of R parietal lobe, Rtemporal lobe & R occipital lobe in a distribution similar to prior exam from 01/22/2024; encephalitis vs postictal edema vs asymmetric PRES (an uncommon presentation). 2. Punctate acute infarct within cortex of R parietal lobe. KEELEY (10/05/2024): EF 55-60%. Mild AR & MR. No L atrial appendage thrombus noted. No interatrialshunt visualized with color Doppler. Grade 0 Absence of bubbles. Agitated saline study was negativewith and without provocation. EEG (09/29/2024): Abnormal awake EEG. The slowing suggests moderate non specific encephalopathy. Noepileptiform discharges were identified. LTME (10/03 - 10/05/2024): Day 1: On this day of recording, the patient experienced at least 5 subclinical seizures originating from R central-parietal leads, characterized by sharply contoured theta activity spreading to adjacent leads. The interictal EEG was abnormal, showing diffuse polymorphic theta slowing consistent with mild encephalopathy. Frequent paracentral & R hemispheric spike-wave discharges conferred an increased risk for focal onset seizures. Day 2: During this day of recording no events were recorded. The interictal EEG was abnormal, showing diffuse polymorphic theta slowing consistent with mild encephalopathy. Day 3: During this period the patient had no events or seizures. The interictal EEG was abnormal, showing diffuse polymorphic theta slowing consistent with mild encephalopathy. Occasional paracentral& R hemispheric spike-wave discharges conferred an increased risk for focal onset seizures. PRIOR DATA: MRI BRAIN W/WO (01/19/2024): 1. High FLAIR signal changes are seen in the perimesencephalic cistern & b/l cerebral convexities. The finding could represent manifestation of increased oxygen tension in the CSF vs less likely due early meningitis vs remote SAH. These findings are nonspecific, but can be seen in the setting of meningitis. Correlation with CSF sampling is recommended. 2. No abnormal focus on brain or meningeal enhancement. REPEAT MRI BRAIN WO (01/22/2024): 1. Interval increase in prominence of cortical based restriction in diffusion within R posterior frontal, parietal & temporal occipital lobe with interval increase in T2 FLAIR signal and swelling. Findings are compatible with acute infarction, less likely to be encephalitis or epilepsy related phenomena. 2. Stable FLAIR hyperintensity in b/l cerebral convexities. Perimesencephalic FLAIR hyperintensity has resolved. Correlation with CSF analysis is advised. IMPRESSION: Acute metabolic encephalopathy with delirium in the setting of HTN urgency, DKA, ABHIJIT & subclinical seizures. Pt has been A&Ox3; back to his baseline mentation as per family MRI brain - acute punctate R parietal infarct along with similar abnormal single intensity R cerebral hemisphere (as above); repeat CSF - negative; ENC2 sent out lab - pending Prior abnormal MRI brain w/wo & repeat MRI wo (as above; 01/2024); CSF (01/2024) - negative; prior Hx of R parieto-occipital infarct. Family reported that patient was intermittently confused & cognitively slow for 3-4 weeks after the last discharge LTME 1st day - 5 subclinical seizures originating from R central-parietal leads. No clinical seizures reported KEELEY - negative. Pt s/p loop recorder placement (10/05) Comorbid conditions - polysubstance abuse (benzos & MDMA), HTN, HLD, DM, CKD, PVD, cervical radiculopathy, prior history of infective myositis RLE PLAN: CSF autoimmune panel sent out - pending, along with West Nile virus & Lyme disease AB D/C LTME Keppra level ordered for tomorrow Continue Keppra 1 g IV Q12Hrs Continue ASA 81 mg QD & Lipitor 40 mg QD In detail discussion with patient and family regarding patient's current and pending results, need for repeat MRI brain, medication compliance, OP F/U, better control of BP & DM by regularly monitoring at home. BP monitor kit - ordered for OP Continue PT/OT Repeat MRI brain w/wo as OP on 11/02/2024 Will follow Please note that this note was generated using a voice recognition dictation software. Although every effort was made to ensure the accuracy of this automated harpsichord maker, some errors in harpsichord maker may have occurred. Associated attestation - Mary Lou Tom DO - 10/05/2024 10:55 PM EST Attending Physician Statement: I have discussed the care of Ortiz Gorman, including pertinent history and exam findings with theAPP. I have seen and examined the patient and the swartz elements of the encounter have been performedby me. I have reviewed medications, clinical laboratory, imaging and other diagnostic tests with the PAT. I agree with the assessment, plan and orders as documented by the PAT with changes made to the note as needed. In addition: Neurologically much improved. Family at bedside state that he is now at baseline. No further seizures on EEG. Now discontinued. Continue Keppra. Check level tomorrow morning. Underwent KEELEY and loop recorder. Had a lengthy discussion with the patient and family at bedside. Emphasized need for compliance to medications and vascular risk factor modification. Will need repeat MRI outpatient. CSF studies remarkable for elevated protein and IgG index. Rest of studies including autoimmune panel pending although not a typical presentation of such. If he remains stable, can likely be discharged tomorrow from neurological standpoint with close follow-up outpatient. Discussed seizure precautions including driving restrictions. We will continue to follow. Discussed with primary attending, Dr. Luna. Mary Lou Tom DO 10/05/2024 10:51 PM * Rhoda Luna MD - 10/05/2024 10:48 AM EST Images from the original note were not included. [facility] Office: [phone] Andrew Hernandez DO, Ernie Escalante DO, Hal Atwood DO, Carlos Trejo DO, Ora Sharp MD, Dawna Chaney MD, Bassam Sher MD, Rhoda Luna MD, Lc Ibarra MD, Elyssa Yee MD, Jeimy Mireles MD, Franck Solis DO, Jelena Damon MD, Rashid Mathew MD, Felix Hernandez DO, Suzan Abbasi MD, Kulwinder Polk DO, Adriana Abdalla MD, Trino Gilliland MD, Peggy Cook MD, Clovis Mares MD, Db Lindquist MD, Judy Alvarez MD, Anne Quan MD, Roseline Forrest MD, Denilson Oliveira MD, Vilma tSeel MD, Ludmila Best DO, Bradly Nassar MD, Sarita Mcmullen,TAKE AWAY MAN, Linda Lynch CNP, Ludmila Aguilera TAKE AWAY MAN, Lina Morgan, JENNA, Nini Raya, TAKE AWAY MAN, Giuliana Mae, TAKE AWAY MAN, Myra Almodovar, TAKE AWAY MAN, Suzy Dooley, TAKE AWAY MAN, Gaviota Rich PASulaimanC, GLADIS FosterC, Shelly Rainey,TAKE AWAY MAN, Manny Laura, TAKE AWAY MAN, Yenny Motta, TAKE AWAY MAN, Claudine Parrish, TAKE AWAY MAN, Maame Carter, TAKE AWAY MAN, Edilma Garza, TAKE AWAY MAN [facility] IN-PATIENT SERVICE [facility] Progress Note 10/05/2024 10:48 AM Name: Ortiz Gorman Acct: [id number] Room: [address] [place] [address] Day: 7 Admit Date: 09/28/2024 2:35 PM PCP: Vincent Winters MD Code Status: Full Code Subjective: C/C: SOB Interval History Status: improved. Patient seen and examined at bedside, no acute events overnight. He just came back from cardiac Clinical Nursing Intern where he had loop recorder placed, tolerated fine. He is off EEG, clinically he is improving and more appropriate, he is on Keppra. He is asking if he can go home, creatinine is 2 Patient vitals, labs and all providers notes were reviewed,from overnight shift and morning updateswere noted and discussed with the nurse Brief History: Per chart This 48-year-old male was admitted to the hospital with DKA and acute hypoxic respiratory failure. The patient did require mechanical ventilation and has been successfully extubated. Concerns for pneumonia existed and he has been maintained on Zosyn since admission. The patient's breathing has improved and his DKA treated accordingly. He is presently on Lantus and sliding scale. The patient had significant elevation of his blood pressure and antihypertensive medications have been initiated. He is presently been started on Cozaar, Coreg, Norvasc. Cardiology was consulted due to elevated cardiac enzymes. Echocardiogram demonstrated preserved ejection fraction and recommendations are for stress test at a later date. He does have an element of acute on kidney failure secondary to above which is improving since admission. At this point in time his biggest complaint is that of generalized weakness secondary to his hospitalization. We will ask PT/OT to evaluate the patient for recommendations regarding safe disposition. The patient denies any questions or concerns at this point in time Review of Systems: Review of Systems Constitutional: Positive for activity change and appetite change. Negative for chills, diaphoresis and fever. HENT: Negative for congestion. Eyes: Negative for visual disturbance. Respiratory: Negative for cough, chest tightness, shortness of breath and wheezing. Cardiovascular: Negative for chest pain, palpitations and leg swelling. Gastrointestinal: Negative for abdominal pain, blood in stool, constipation, diarrhea, nausea and vomiting. Genitourinary: Negative for difficulty urinating. Neurological: Negative for dizziness, weakness, light-headedness, numbness (BLE , chronic) and headaches. Psychiatric/Behavioral: Positive for confusion. All other systems reviewed and are negative. Medications: Allergies: No Known Allergies Current Meds: Scheduled Meds: losartan 50 mg Oral Daily levETIRAcetam 1,000 mg IntraVENous BID insulin lispro 0-8 Units SubCUTAneous 4x Daily AC & HS miconazole Topical BID insulin glargine 25 Units SubCUTAneous QAM amLODIPine 5 mg Oral Daily carvedilol 25 mg Oral BID WC heparin (porcine) 5,000 Units SubCUTAneous 3 times per day sodium chloride flush 5-40 mL IntraVENous 2 times per day atorvastatin 40 mg Oral Nightly aspirin 81 mg Oral Daily Continuous Infusions: dextrose sodium chloride 10 mL/hr at 10/02/24 0721 PRN Meds: sodium chloride flush, sodium chloride flush, glucose, dextrose bolus OR dextrose bolus, glucagon (rDNA), dextrose, hydrALAZINE, sodium chloride flush, sodium chloride, potassium chloride OR potassium chloride, magnesium sulfate, ondansetron OR ondansetron, polyethylene glycol, acetaminophen OR acetaminophen, magnesium sulfate, sodium phosphate 15 mmol in sodium chloride0.9 % 250 mL IVPB, labetalol Data: Past Medical History: has a past medical history of Diabetes mellitus (HCC). Social History: reports that he has never smoked. His smokeless tobacco use includes chew. He reports that he does not currently use alcohol. He reports that he does not use drugs. Family History: No family history on file. Vitals: BP (!) 200/105 Pulse 71 Temp 98.9 F (37.2 C) (Oral) Resp 12 Ht 1.778 m (5' 10 ) Wt 82.3 kg (181 lb 7 oz) SpO2 94% BMI 26.03 kg/m Temp (24hrs), Av.6 F (37 C), Min:98.4 F (36.9 C), Max:98.9 F (37.2 C) Recent Labs 10/04/24 1217 10/04/24 1626 10/04/24 2117 10/05/24 0636 POCGLU 161* 197* 199* 177* I/O (24Hr): Intake/Output Summary (Last 24 hours) at 10/05/2024 1048 Last data filed at 10/05/2024 0735 Gross per 24 hour Intake 1322 ml Output 2500 ml Net -1178 ml Labs: Hematology: Recent Labs 10/03/24 0309 10/04/24 0525 10/05/24 0405 WBC 8.6 8.0 6.5 RBC 3.10* 3.48* 2.93* HGB 8.8* 9.8* 8.3* HCT 26.8* 29.9* 25.8* MCV 86.5 85.9 88.1 MCH 28.4 28.2 28.3 MCHC 32.8 32.8 32.2 RDW 13.0 12.9 13.0 PLT 193 225 198 MPV 10.5 10.7 10.4 INR -- 1.1 -- Chemistry: Recent Labs 10/03/24 0309 10/04/24 0525 10/05/24 0405 NA 135* 133* 135* K 4.0 4.1 4.5 CL 104 102 103 CO2 20 21 24 GLUCOSE 170* 161* 189* BUN 42* 40* 46* CREATININE 1.9* 1.8* 2.0* ANIONGAP 11 10 8* LABGLOM 42* 45* 40* CALCIUM 7.7* 7.9* 7.9* Recent Labs 10/03/24 0309 10/03/24 0822 10/03/24 2019 10/04/24 0759 10/04/24 1217 10/04/24 1626 10/04/24 2117 10/05/24 0636 TSH 1.19 -- -- -- -- -- -- -- POCGLU -- < > 190* 148* 161* 197* 199* 177* < > = values in this interval not displayed. ABG: Lab Results Component Value Date/Time POCPH 7.480 10/01/2024 04:26 AM PHART 7.385 09/28/2024 09:42 AM POCPCO2 33.7 10/01/2024 04:26 AM [id number] 35.2 09/28/2024 09:42 AM POCPO2 143.0 10/01/2024 04:26 AM PO2ART 72.2 09/28/2024 09:42 AM POCHCO3 25.1 10/01/2024 04:26 AM [id number] 20.6 09/28/2024 09:42 AM NBEA 3.7 09/28/2024 09:42 AM PBEA 1.5 10/01/2024 04:26 AM [id number] 99.4 10/01/2024 04:26 AM [id number] 94.5 09/28/2024 09:42 AM FIO2 30.0 10/01/2024 04:26 AM Lab Results Component Value Date/Time SPECIAL Site: Respiratory specimen 09/28/2024 08:54 PM Lab Results Component Value Date/Time CULTURE NO GROWTH 18 HOURS 10/04/2024 11:35 AM Radiology: MRI BRAIN WO CONTRAST Result Date: 09/30/2024 1. Abnormal signal intensity within the cortex and subcortical white matter of the right parietal lobe, right temporal lobe and right occipital lobe in a distribution similar to the findings on the previous exam from 01/22/2024. Differential considerations include an encephalitis, postictal edema or a symmetric PRES (an uncommon presentation). 2. Punctate acute infarct within the cortex of the rightparietal lobe. The findings were sent to the Radiology Results Communication Center at 1:34 pm on 09/30/2024 to be communicated to a licensed caregiver. US RENAL COMPLETE Result Date: 09/29/2024 1. No evidence of hydronephrosis. 2. Mildly hyperechoic kidneys bilaterally suggesting medical renal disease. 3. Unremarkable appearance of the bladder. A Lin catheter is in place. XR ABDOMEN FOR NG/OG/NE TUBE PLACEMENT Result Date: 09/28/2024 Enteric tube appears to be in appropriate position. XR CHEST PORTABLE Result Date: 09/28/2024 No acute cardiopulmonary process. Endotracheal tube with the tip in the midtrachea. CT CHEST ABDOMEN PELVIS W CONTRAST Additional Contrast? None Result Date: 09/28/2024 Few ground-glass opacities laterally in the left lung concerning for an infectious process. Trace amount of fluid and potential inflammation adjacent to the pancreas concerning for pancreatitis. CTA HEAD NECK W CONTRAST Result Date: 09/28/2024 No significant stenosis or evidence for large vessel occlusion. Few partially visualized ground-glass opacities in the left lung concerning for pneumonia. CT HEAD WO CONTRAST Result Date: 09/28/2024 No acute intracranial abnormality. Remote right parietal lobe infarct. Summary: On this day of recording, the patient experienced at least five subclinical seizures originating from the right central-parietal leads, characterized by sharply contoured theta activity spreading to adjacent leads. The interictal EEG was abnormal, showing diffuse polymorphic theta slowing c onsistent with mild encephalopathy. Frequent paracentral and right hemispheric spike-wave discharges conferred an increased risk for focal onset seizures. Monitoring was continued to capture the patient's typical events. The EKG channel showed no abnormalities. Physical Examination: Physical Exam Vitals and nursing note reviewed. Constitutional: General: He is not in acute distress. Comments: Undergoing EEG currently HENT: Head: Normocephalic and atraumatic. Eyes: Conjunctiva/sclera: Conjunctivae normal. Pupils: Pupils are equal, round, and reactive to light. Cardiovascular: Rate and Rhythm: Normal rate and regular rhythm. Heart sounds: No murmur heard. Pulmonary: Effort: Pulmonary effort is normal. No accessory muscle usage or respiratory distress. Breath sounds: No stridor. No decreased breath sounds, wheezing, rhonchi or rales. Abdominal: General: Bowel sounds are normal. There is no distension. Palpations: Abdomen is soft. Abdomen is not rigid. Tenderness: There is no abdominal tenderness. There is no guarding. Musculoskeletal: General: No tenderness. Skin: General: Skin is warm and dry. Findings: No erythema, lesion or rash. Comments: Multiple old wounds on BLE chins Neurological: Mental Status: He is alert and oriented to person, place, and time. Cranial Nerves: No cranial nerve deficit. Motor: No seizure activity. Psychiatric: Speech: Speech normal. Behavior: Behavior normal. Behavior is cooperative. Assessment: Hospital Problems Last Modified POA * (Principal) DKA, type 2, not at goal ([facility]) 09/28/2024 Yes NSTEMI (non-ST elevated myocardial infarction) ([facility]) 09/29/2024 Yes Acute metabolic encephalopathy 09/30/2024 Yes Acute hypoxemic respiratory failure 09/28/2024 Yes Abnormal finding on MRI of brain 10/01/2024 Yes Abnormal electrocardiography 10/03/2024 Yes ABHIJIT (acute kidney injury) ([facility]) 10/04/2024 Yes Stage 3 chronic kidney disease ([facility]) 10/04/2024 Yes Hypertension 10/04/2024 Yes Seizures ([facility]) 10/04/2024 Yes Plan: DKA NSTEMI Hypertensive Emergency Abnormal MRI brain with hyperintensity and diffusion restriction in the right parietal region ( stable sine MRI in 02/07) -Punctate infarct in the right parietal lobe - Subclinical seizures Acute metabolic encephalopathy Acute hypoxemic respiratory failure - DKA resolved - Continue Lantus and SS -Did receive diabetes education - Successfully extubated 10/01 -Troponin plateau, stress test unremarkable no further ischemic workup per cardiology. - Received Abx for concerns for aspiration PNA - Continue to monitor creatinine and avoid nephrotoxic agents - Neuro recommending repeat MRI in 4 weeks - Neuro evaluating, he was placed on LTM E that showed subclinical seizures , he was loaded with Keppra with improvement in his symptoms. - Discussed with Neuro attending, Dr. Tom, given presentation and no LVO it was felt that loop recorder can assist in further assessing tiology, he is not opposed to discharge later today if he continued to be stable. -Loop recorder was placed today 10/05. - Discussed with the patient and the nurse, patient still needs evaluation with PT OT Rhoda Luna MD 10/05/2024 10:48 AM * Gabriela Rivas RN - 10/05/2024 9:00 AM EST RN educated patient on importance of checking blood sugars at home and giving insulin, patient verbalized understanding. Destination Specialist reached out to diabetes education for physical copies of information and patient daughter Shania was requesting information and education. Diabetes education dropped off information for Shania and also educated over the phone. 1700: Patient, daughter Shania, and patient girlfriend in room for education regarding medication compliance and what should be expected at home. Patient and visitors verbalized understanding. Destination Specialist and visitors made a plan for discharge for patient daughter to be present in the discharge informationeducation since he will be living with her. Patient agreeable at this time. * Aleja Wagoner APRN - SARAH - 10/04/2024 2:59 PM EST Images from the original note were not included. [place] [employer] Progress Note Date: 10/04/2024 Patient name: Ortiz Gorman Date of admission: 09/28/2024 2:35 PM Date of : 1975 PCP: Vincent Winters MD Subjective: Patient seen and examined on continuous EEG monitoring . Re consulted for loop recorder Denies chest pain or shortness of breath . Remains SR on tele Medications: Scheduled Meds: [START ON 10/05/2024] losartan 50 mg Oral Daily levETIRAcetam 1,000 mg IntraVENous BID insulin lispro 0-8 Units SubCUTAneous 4x Daily AC & HS miconazole Topical BID insulin glargine 25 Units SubCUTAneous QAM amLODIPine 5 mg Oral Daily carvedilol 25 mg Oral BID WC heparin (porcine) 5,000 Units SubCUTAneous 3 times per day sodium chloride flush 5-40 mL IntraVENous 2 times per day atorvastatin 40 mg Oral Nightly aspirin 81 mg Oral Daily Continuous Infusions: dextrose sodium chloride 10 mL/hr at 10/02/24 0721 CBC: Recent Labs 10/02/24 0408 10/03/24 0309 10/04/24 0525 WBC 8.0 8.6 8.0 HGB 8.4* 8.8* 9.8* PLT 180 193 225 BMP: Recent Labs 10/02/24 0408 10/03/24 0309 10/04/24 0525 NA 141 135* 133* K 3.8 4.0 4.1 CL 110* 104 102 CO2 22 20 21 BUN 41* 42* 40* CREATININE 2.1* 1.9* 1.8* GLUCOSE 80 170* 161* Hepatic: No results for input(s): AST , ALT , BILITOT , ALKPHOS in the last 72 hours. Invalid input(s): ALB Lab Results Component Value Date CHOL 177 10/01/2024 TRIG 213 (H) 10/01/2024 HDL 49 10/01/2024 LDL 85 10/01/2024 VLDL 43 (H) 10/01/2024 CHOLHDLRATIO 3.6 10/01/2024 INR: Recent Labs 10/04/24524 INR 1.1 Objective: Vitals: BP 120/80 Pulse 74 Temp 98.7 F (37.1 C) (Oral) Resp 17 Ht 1.778 m (5' 10 ) Wt 82.3 kg (181 lb 7 oz) SpO2 98% BMI 26.03 kg/m General appearance: cooperative with exam HEENT: Normocephalic, atraumatic Neck: no carotid bruit, no JVD, trachea midline and thyroid not enlarged Lungs: clear to auscultation bilaterally Heart: regular rate and rhythm, S1, S2 normal, no murmur Abdomen: soft, bowel sounds normal Extremities: no edema or swelling EKG: Results for orders placed or performed during the hospital encounter of 09/28/24 EKG 12 Lead Result Value Ref Range Ventricular Rate 111 BPM Atrial Rate 111 BPM P-R Interval 166 ms QRS Duration 82 ms Q-T Interval 336 ms QTc Calculation (Bazett) 456 ms P [place] 79 degrees R [place] 68 degrees T [place] 68 degrees Narrative Sinus tachycardia Possible Left atrial enlargement Nonspecific ST abnormality Abnormal ECG No previous ECGs available Echo: Results for orders placed or performed during the hospital encounter of 10/27/21 Echocardiogram complete 2D with doppler with color Result Value Ref Range Left Ventricular Ejection Fraction 60 LVEF MODALITY ECHO Narrative [facility] Transthoracic Echocardiography Report (TTE) Patient Name SHERIF Date of Study 10/30/2021 ORTIZ Quezada Date of 1975 Gender Male Age 45 year(s) Race Room Number [id number] Height: 71 inch, 180.34 cm Corporate ID [id number] Weight: 174 pounds, 78.9 kg # Patient Acct [id number] BSA: 1.99 m^2 BMI: 24.27 # kg/m^2 MR # [id number] Supervisor [employer] Raysa De La Torre Interpreting Physician Sammie Sher Fellow Referring Nurse Sarita Arzola CNP Practitioner Interpreting Referring Physician Fellow Type of Study TTE procedure:2D Echocardiogram, M-Mode, Doppler, Color Doppler. Procedure Date Date: 10/30/2021 Start: 02:34 PM Study Location: [facility] Indications:Tachycardia. History / Tech. Comments: Dx: tachycardia, infection Patient Status: Inpatient Height: 71 inches Weight: 174 pounds BSA: 1.99 m^2 BMI: 24.27 kg/m^2 CONCLUSIONS Summary Global left ventricular systolic function appears preserved with an estimated ejection fraction of >60%. The left ventricular cavity size is within normal limits and the left ventricular wall thickness is mildly increased. No definite specific wall motion abnormalities were identified. No significant valvular abnormalities. Evidence of mild diastolic dysfunction is seen. No prior studies were available for comparison. No evidence of infective endocarditis was identified in this study. Consider KEELEY if clinically indicated. Signature FINDINGS Left Atrium Left atrium is normal in size. Left Ventricle Global left ventricular systolic function appears preserved with an estimated ejection fraction of >60%. The left ventricular cavity size is within normal limits and the left ventricular wall thickness is mildly increased. No definite specific wall motion abnormalities were identified. Right Atrium Right atrium is normal in size. Right Ventricle Normal right ventricular size and function. Mitral Valve Normal mitral valve structure and function. Aortic Valve Normal aortic valve structure and function without stenosis or regurgitation. Tricuspid Valve Normal tricuspid valve structure and function. Pulmonic Valve The pulmonic valve is normal in structure. Pericardial Effusion No significant pericardial effusion is seen. Miscellaneous Evidence of mild diastolic dysfunction is seen. Normal aortic root dimension. M-mode / 2D Measurements & Calculations: LVIDd:4.42 cm(3.7 - 5.6 cm) Diastolic Volume:86.23 ml LVIDs:3.13 cm(2.2 - 4.0 cm) Systolic Volume:30.7 ml IVSd:1.06 cm(0.6 - 1.1 cm) Aortic Root:3.35 cm(2.0 - 3.7 cm) LVPWd:1.04 cm(0.6 - 1.1 cm) LA Dimension: 2.48 cm(1.9 - 4.0 cm) Fractional Shortenin.19 % LA volume/Index: 46.2 ml /23m^2 Calculated LVEF (%): 64.4 % AV Cusp Separation: 2.11 cm Mitral: Aortic Valve Area (P1/2-Time): 5.35 cm^2 Peak Velocity: 0.98 m/s Peak E-Wave: 0.66 m/s Mean Velocity: 0.74 m/s Peak A-Wave: 0.56 m/s Peak Gradient: 3.82 mmHg E/A Ratio: 1.18 Mean Gradient: 2.43 mmHg Peak Gradient: 1.77 mmHg Acceleration Time: 49.73 msec P1/2t: 41.13 msec AV VTI: 17.11 cm Diastology / Tissue Doppler Lateral Wall E' velocity:0.11 m/s Lateral Wall E/E':6.51 09/28/24 ECHO (TTE) COMPLETE (PRN CONTRAST/BUBBLE/STRAIN/3D) 09/29/2024 10:25 PM (Final) Interpretation Summary Left Ventricle: Normal left ventricular systolic function with a visually estimated EF of 60 - 65%.EF by 2D Simpsons Biplane is 65%. Left ventricle size is normal. Increased wall thickness. Findingsconsistent with moderate concentric hypertrophy. Normal wall motion. Global longitudinal strain is -16.7%. Normal diastolic function. Aortic Valve: Trileaflet valve. Mitral Valve: Mild regurgitation. Pericardium: Trivial pericardial effusion present. Image quality is adequate. Signed by: Kika Raymond DO on 09/29/2024 10:25 PM Stress test 1. Normal or small myocardial perfusion defect at rest or with stress encumbering less than 5% of the myocardium. IMPRESSION: [Normal study.] Risk stratification: [Low] Author: Ludmila Rushing MD Hospital Problems Last Modified POA * (Principal) DKA, type 2, not at goal ([facility]) 09/28/2024 Yes NSTEMI (non-ST elevated myocardial infarction) ([facility]) 09/29/2024 Yes Acute metabolic encephalopathy 09/30/2024 Yes Acute hypoxemic respiratory failure 09/28/2024 Yes Abnormal finding on MRI of brain 10/01/2024 Yes Abnormal electrocardiography 10/03/2024 Yes ABHIJIT (acute kidney injury) ([facility]) 10/04/2024 Yes Stage 3 chronic kidney disease ([facility]) 10/04/2024 Yes Hypertension 10/04/2024 Yes Seizures ([facility]) 10/04/2024 Yes Assessment: Elevated Troponins- likely type II MS HTN emergency- off cardene drip AMS-extubated on 10/01 ABHIJIT Sepsis 2/2 pneumonia DKA Normal TTE 01/2024 Noncompliance with medication Plan: Hemodynamically stable - continue asa , statin Norvasc and coreg ECHO as above Volume management per nephrology Will add patient for Loop recorder as patient agreeable in am . Risk and benefits were explained and ok to proceed , please keep patient NPO after midnight [place] [employer] [phone] * Joseline Teague RN - 10/04/2024 1:31 PM EST Inpatient Diabetes Education Ortiz Gorman was seen for follow up. Lab Results Component Value Date LABA1C 09/28/2024 Sent to reference laboratory. Separate report to follow. LABA1C >16.5 (H) 09/28/2024 LABA1C 09/28/2024 Sent to reference laboratory. Separate report to follow. Please see previous notes for more information. Yesterday, Ortiz was not able to demonstrate to me how to use an insulin pen. Today, I demonstrated to him how to use an insulin one. He reports that the steps look familiar. No visitors present. Ortiz is unsure if his daughter has knowledge of how to use an insulin pen. He states that she may because she works in a jail. Ortiz states that prior to admission, he typically gave insulin to himself. It may be best for the patient to have support upon returning home to ensure consistency with his diabetes care. Educational materials previously given remain at bedside. Will sign off. Please refer again if needed or call [phone] if family requests diabetes education. Thank you for the referral. JOSELINE TEAGUE, RN * Sherrie Han RN - 10/04/2024 11:13 AM EST Pt arrives to IR for LP Placed prone on table CM RT and KT RT to bedside JR PA to bedside Site prepped and draped Access obtained and draining 8mls clear csf obtained Access removed and band aid applied Tolerated well Return to floor * Sherrie Han RN - 10/04/2024 10:35 AM EST Spoke with Archana OCONNELL Explained need for full yellow top tube of blood from lab for banding order. Spoke with Sanjana in the lab, verified that she can see the banding order and need to be drawn. Verbalized understanding. * Rhoda Luna MD - 10/04/2024 10:02 AM EST Images from the original note were not included. [facility] Office: [phone] Andrew Hernandez DO, Ernie Escalante DO, Hal Atwood DO, Carlos Trejo DO, Ora Sharp MD, Dawna Chaney MD, Bassam Sher MD, Rhoda Luna MD, Lc Ibarra MD, Elyssa Yee MD, Jeimy Mireles MD, Franck Solis DO, Jelena Damon MD, Rashid Mathew MD, Felix Hernandez DO, Suzan Abbasi MD, Kulwinder Polk DO, Adriana Abdalla MD, Trino Gilliland MD, Peggy Cook MD, Clovis Mares MD, Db Lindquist MD, Judy Alvarez MD, Anne Quan MD, Roseline Forrest MD, Denilson Oliveira MD, Vilma Steel MD, Ludmila Best DO, Bradly Nassar MD, Sarita Mcmullen CNP, Linda Lynch CNP, Ludmila Aguilera CNP, Lina Morgan DNP, Nini Raya, PARKER, Giuliana Mae, PARKER, Myra Almodovar, PARKER, Suzy Dooley, PARKER, GLADIS RankinC, GLADIS FotserC, Shelly Rainey CNP, Manny Laura CNP, Yenny Motta CNP, Claudine Parrish CNP, Maame Carter CNP, Edilma Garza, PARKER [facility] IN-PATIENT SERVICE [facility] Progress Note 10/04/2024 10:02 AM Name: Ortiz Gorman Acct: [id number] Room: [address] [place] [address] Day: 6 Admit Date: 09/28/2024 2:35 PM PCP: Vincent Winters MD Code Status: Full Code Subjective: C/C: SOB Interval History Status: improved. Patient seen and examined at bedside, no acute events overnight. He is on continuous EEG , it is showing subclinical seizures , he was loaded with Keppra per neuro, plan for LP. BS are okay Patient vitals, labs and all providers notes were reviewed,from overnight shift and morning updateswere noted and discussed with the nurse Brief History: Per chart This 48-year-old male was admitted to the hospital with DKA and acute hypoxic respiratory failure. The patient did require mechanical ventilation and has been successfully extubated. Concerns for pneumonia existed and he has been maintained on Zosyn since admission. The patient's breathing has improved and his DKA treated accordingly. He is presently on Lantus and sliding scale. The patient had significant elevation of his blood pressure and antihypertensive medications have been initiated. He is presently been started on Cozaar, Coreg, Norvasc. Cardiology was consulted due to elevated cardiac enzymes. Echocardiogram demonstrated preserved ejection fraction and recommendations are for stress test at a later date. He does have an element of acute on kidney failure secondary to above which is improving since admission. At this point in time his biggest complaint is that of generalized weakness secondary to his hospitalization. We will ask PT/OT to evaluate the patient for recommendations regarding safe disposition. The patient denies any questions or concerns at this point in time Review of Systems: Review of Systems Constitutional: Positive for activity change and appetite change. Negative for chills, diaphoresis and fever. HENT: Negative for congestion. Eyes: Negative for visual disturbance. Respiratory: Negative for cough, chest tightness, shortness of breath and wheezing. Cardiovascular: Negative for chest pain, palpitations and leg swelling. Gastrointestinal: Negative for abdominal pain, blood in stool, constipation, diarrhea, nausea and vomiting. Genitourinary: Negative for difficulty urinating. Neurological: Negative for dizziness, weakness, light-headedness, numbness (BLE , chronic) and headaches. Psychiatric/Behavioral: Positive for confusion. All other systems reviewed and are negative. Medications: Allergies: No Known Allergies Current Meds: Scheduled Meds: [START ON 10/05/2024] losartan 50 mg Oral Daily levETIRAcetam 1,000 mg IntraVENous BID insulin lispro 0-8 Units SubCUTAneous 4x Daily AC & HS miconazole Topical BID insulin glargine 25 Units SubCUTAneous QAM amLODIPine 5 mg Oral Daily carvedilol 25 mg Oral BID WC [Held by provider] heparin (porcine) 5,000 Units SubCUTAneous 3 times per day sodium chloride flush 5-40 mL IntraVENous 2 times per day atorvastatin 40 mg Oral Nightly aspirin 81 mg Oral Daily Continuous Infusions: dextrose sodium chloride 10 mL/hr at 10/02/24 0721 PRN Meds: sodium chloride flush, sodium chloride flush, glucose, dextrose bolus OR dextrose bolus, glucagon (rDNA), dextrose, hydrALAZINE, sodium chloride flush, sodium chloride, potassium chloride OR potassium chloride, magnesium sulfate, ondansetron OR ondansetron, polyethylene glycol, acetaminophen OR acetaminophen, magnesium sulfate, sodium phosphate 15 mmol in sodium chloride0.9 % 250 mL IVPB, labetalol Data: Past Medical History: has a past medical history of Diabetes mellitus (HCC). Social History: reports that he has never smoked. His smokeless tobacco use includes chew. He reports that he does not currently use alcohol. He reports that he does not use drugs. Family History: No family history on file. Vitals: BP (!) 188/101 Pulse 69 Temp 97.6 F (36.4 C) (Oral) Resp 18 Ht 1.778 m (5' 10 ) Wt 82.3 kg (181 lb 7 oz) SpO2 99% BMI 26.03 kg/m Temp (24hrs), Av.9 F (36.6 C), Min:97.6 F (36.4 C), Max:98.2 F (36.8 C) Recent Labs 10/03/24 1221 10/03/24 1743 10/03/24201810/04/24 0759 POCGLU 88 163* 190* 148* I/O (24Hr): Intake/Output Summary (Last 24 hours) at 10/04/2024 1002 Last data filed at 10/04/2024 0829 Gross per 24 hour Intake -- Output 2350 ml Net -2350 ml Labs: Hematology: Recent Labs 10/02/24 0408 10/03/24 0309 10/04/24 0525 WBC 8.0 8.6 8.0 RBC 2.94* 3.10* 3.48* HGB 8.4* 8.8* 9.8* HCT 25.8* 26.8* 29.9* MCV 87.8 86.5 85.9 MCH 28.6 28.4 28.2 MCHC 32.6 32.8 32.8 RDW 13.4 13.0 12.9 PLT 180 193 225 MPV 10.6 10.5 10.7 INR -- -- 1.1 Chemistry: Recent Labs 10/02/24 0408 10/03/24 0309 10/04/24 0525 NA 141 135* 133* K 3.8 4.0 4.1 CL 110* 104 102 CO2 22 20 21 GLUCOSE 80 170* 161* BUN 41* 42* 40* CREATININE 2.1* 1.9* 1.8* ANIONGAP 9 11 10 LABGLOM 38* 42* 45* CALCIUM 8.0* 7.7* 7.9* Recent Labs 10/02/24 2045 10/03/24 0309 10/03/24 0822 10/03/24 1221 10/03/24 1743 10/03/24201810/04/24 0759 TSH -- 1.19 -- -- -- -- -- POCGLU 224* -- 133* 88 163* 190* 148* ABG: Lab Results Component Value Date/Time POCPH 7.480 10/01/2024 04:26 AM PHART 7.385 09/28/2024 09:42 AM POCPCO2 33.7 10/01/2024 04:26 AM [id number] 35.2 09/28/2024 09:42 AM POCPO2 143.0 10/01/2024 04:26 AM PO2ART 72.2 09/28/2024 09:42 AM POCHCO3 25.1 10/01/2024 04:26 AM [id number] 20.6 09/28/2024 09:42 AM NBEA 3.7 09/28/2024 09:42 AM PBEA 1.5 10/01/2024 04:26 AM [id number] 99.4 10/01/2024 04:26 AM [id number] 94.5 09/28/2024 09:42 AM FIO2 30.0 10/01/2024 04:26 AM Lab Results Component Value Date/Time SPECIAL Site: Respiratory specimen 09/28/2024 08:54 PM Lab Results Component Value Date/Time CULTURE NORMAL RESPIRATORY AYDEN LIGHT GROWTH 09/28/2024 08:54 PM Radiology: MRI BRAIN WO CONTRAST Result Date: 09/30/2024 1. Abnormal signal intensity within the cortex and subcortical white matter of the right parietal lobe, right temporal lobe and right occipital lobe in a distribution similar to the findings on the previous exam from 01/22/2024. Differential considerations include an encephalitis, postictal edema or a symmetric PRES (an uncommon presentation). 2. Punctate acute infarct within the cortex of the rightparietal lobe. The findings were sent to the Radiology Results Communication Center at 1:34 pm on 09/30/2024 to be communicated to a licensed caregiver. US RENAL COMPLETE Result Date: 09/29/2024 1. No evidence of hydronephrosis. 2. Mildly hyperechoic kidneys bilaterally suggesting medical renal disease. 3. Unremarkable appearance of the bladder. A Lin catheter is in place. XR ABDOMEN FOR NG/OG/NE TUBE PLACEMENT Result Date: 09/28/2024 Enteric tube appears to be in appropriate position. XR CHEST PORTABLE Result Date: 09/28/2024 No acute cardiopulmonary process. Endotracheal tube with the tip in the midtrachea. CT CHEST ABDOMEN PELVIS W CONTRAST Additional Contrast? None Result Date: 09/28/2024 Few ground-glass opacities laterally in the left lung concerning for an infectious process. Trace amount of fluid and potential inflammation adjacent to the pancreas concerning for pancreatitis. CTA HEAD NECK W CONTRAST Result Date: 09/28/2024 No significant stenosis or evidence for large vessel occlusion. Few partially visualized ground-glass opacities in the left lung concerning for pneumonia. CT HEAD WO CONTRAST Result Date: 09/28/2024 No acute intracranial abnormality. Remote right parietal lobe infarct. Summary: On this day of recording, the patient experienced at least five subclinical seizures originating from the right central-parietal leads, characterized by sharply contoured theta activity spreading to adjacent leads. The interictal EEG was abnormal, showing diffuse polymorphic theta slowing c onsistent with mild encephalopathy. Frequent paracentral and right hemispheric spike-wave discharges conferred an increased risk for focal onset seizures. Monitoring was continued to capture the patient's typical events. The EKG channel showed no abnormalities. Physical Examination: Physical Exam Vitals and nursing note reviewed. Constitutional: General: He is not in acute distress. Comments: Undergoing EEG currently HENT: Head: Normocephalic and atraumatic. Eyes: Conjunctiva/sclera: Conjunctivae normal. Pupils: Pupils are equal, round, and reactive to light. Cardiovascular: Rate and Rhythm: Normal rate and regular rhythm. Heart sounds: No murmur heard. Pulmonary: Effort: Pulmonary effort is normal. No accessory muscle usage or respiratory distress. Breath sounds: No stridor. No decreased breath sounds, wheezing, rhonchi or rales. Abdominal: General: Bowel sounds are normal. There is no distension. Palpations: Abdomen is soft. Abdomen is not rigid. Tenderness: There is no abdominal tenderness. There is no guarding. Musculoskeletal: General: No tenderness. Skin: General: Skin is warm and dry. Findings: No erythema, lesion or rash. Comments: Multiple old wounds on BLE chins Neurological: Mental Status: He is alert and oriented to person, place, and time. Cranial Nerves: No cranial nerve deficit. Motor: No seizure activity. Psychiatric: Speech: Speech normal. Behavior: Behavior normal. Behavior is cooperative. Assessment: Hospital Problems Last Modified POA * (Principal) DKA, type 2, not at goal ([facility]) 09/28/2024 Yes NSTEMI (non-ST elevated myocardial infarction) ([facility]) 09/29/2024 Yes Acute metabolic encephalopathy 09/30/2024 Yes Acute hypoxemic respiratory failure 09/28/2024 Yes Abnormal finding on MRI of brain 10/01/2024 Yes Abnormal electrocardiography 10/03/2024 Yes Plan: DKA NSTEMI Hypertensive Emergency Abnormal MRI brain with hyperintensity and diffusion restriction in the right parietal region ( stable sine MRI in 02/07) -Punctate infarct in the right parietal lobe - Subclinical seizures Acute metabolic encephalopathy Acute hypoxemic respiratory failure - DKA resolved - Continue Lantus and SS - For the nstemi patient is getting stress test this am - Received Abx for concerns for aspiration PNA - Successfully extubated 10/01 - Continue to monitor creatinine and avoid nephrotoxic agents - Neuro recommending repeat MRI in 4 weeks - Neuro evaluating, currently on continuous EEG showing subclinical seizures , he was loaded with Keppra per neuro, plan for LP. - Discussed with Neuro attending, Dr. Tom, given presentation and no LVO it was felt that loop recorder can assist in further assessing tiology, cards was consulted - Discussed with the patient and the nurse Rhoda Luna MD 10/04/2024 10:02 AM * Eduin Isaacs, PT - 10/04/2024 9:22 AM EST Images from the original note were not included. Physical Therapy Physical Therapy Cancel Note DATE: 10/04/2024 NAME: Ortiz Gorman : 1975 Patient not seen this date for Physical Therapy due to: Other: LTME, Hold per neuro resident per RN. Ck pm as able. * Carmencita Mata MD - 10/04/2024 9:11 AM EST NEPHROLOGY PROGRESS NOTE ASSESSMENT Acute kidney injury nonoliguric secondary to ischemic ATN from hypertensive emergency/osmotic diuresis related to DKA complicated further by contrast exposure -improving creatinine peaked to 2.5 improving to 1.8 this AM. Chronic kidney disease stage III secondary to diabetic nephrosclerosis with baseline creatinine of 1.4-1.6 Nonnephrotic range proteinuria with last UPC 2.5 Diabetic ketoacidosis. Resolved Hypertensive emergency manifesting as ABHIJIT/PRESS Left lower lobe pneumonia Acute hypoxic respiratory failure secondary to #4/#5/#6 with pain status post extubation PLAN Increase losartan to 50 . Antibiotic management as per EGFR Ensure strict intake output monitoring. Avoid nephrotoxic medications. Avoid contrast exposure. Avoid hypotension. BMP in AM. Will follow. SUBJECTIVE Hospitalized when found down/altered mental sensorium with initial assessment disclosing hypertensive emergency with elevated creatinine and diabetic ketoacidosis along with left lower lobe pneumonia. Currently being managed with decubital call as well as antibiotics which she has shown good response. Patient seen and examined at Bedside.Chart and results Reviewed. No acute events reported overnight. Denies any new complaints and issues. Reports good urine output. He is hemodynamically stable. No acute distress. Saturating well on room air. Blood pressure systolic around 130-170. Currently on Norvasc 5, Coreg 25 twice daily, Cozaar 25 added Documented urine output last 24 hours 2.5L with 3 unmeasured urinary occurrence. He is net +2 L.. Has external Catheter. Blood pressure systolic 180 this AM. Underwent stress test negative for ischemia. Currently on EEG . Neuro planning for repeat MRI in 4 days. OBJECTIVE Vitals: 10/04/24 0600 10/04/24 0656 10/04/24 0716 10/04/24 0845 BP: (!) 163/95 (!) 188/101 Pulse: 70 69 Resp: 17 18 Temp: 97.6 F (36.4 C) TempSrc: Oral SpO2: 99% Weight: 82.3 kg (181 lb 7 oz) Height: 24HR INTAKE/OUTPUT: Intake/Output Summary (Last 24 hours) at 10/04/2024 0911 Last data filed at 10/04/2024 0656 Gross per 24 hour Intake -- Output 1750 ml Net -1750 ml General appearance:Awake, alert, in no acute distress HEENT: PERRLA Respiratory::vesicular breath sounds,no wheeze/crackles Cardiovascular:S1 S2 normal,no gallop or organic murmur. Abdomen:Non tender/non distended.Bowel sounds present Extremities: No Cyanosis or Clubbing,Lower extremity edema Neurological:Alert and oriented.No abnormalities of mood, affect, memory, mentation, or behavior are noted MEDICATIONS Scheduled Meds: levETIRAcetam 1,000 mg IntraVENous BID losartan 25 mg Oral Daily insulin lispro 0-8 Units SubCUTAneous 4x Daily AC & HS miconazole Topical BID insulin glargine 25 Units SubCUTAneous QAM amLODIPine 5 mg Oral Daily carvedilol 25 mg Oral BID WC [Held by provider] heparin (porcine) 5,000 Units SubCUTAneous 3 times per day sodium chloride flush 5-40 mL IntraVENous 2 times per day atorvastatin 40 mg Oral Nightly aspirin 81 mg Oral Daily Continuous Infusions: dextrose sodium chloride 10 mL/hr at 10/02/24 0721 PRN Meds: sodium chloride flush, sodium chloride flush, glucose, dextrose bolus OR dextrose bolus, glucagon (rDNA), dextrose, hydrALAZINE, sodium chloride flush, sodium chloride, potassium chloride OR potassium chloride, magnesium sulfate, ondansetron OR ondansetron, polyethylene glycol, acetaminophen OR acetaminophen, magnesium sulfate, sodium phosphate 15 mmol in sodium chloride0.9 % 250 mL IVPB, labetalol Home Meds: Medications Prior to Admission: insulin lispro (HUMALOG) 100 UNIT/ML SOLN injection vial, Inject 0-16 Units into the skin 3 times daily (with meals) insulin glargine (LANTUS SOLOSTAR) 100 UNIT/ML injection pen, Inject 20 Units into the skin nightly carvedilol (COREG) 12.5 MG tablet, Take 1 tablet by mouth 2 times daily (with meals) NIFEdipine (PROCARDIA XL) 30 MG extended release tablet, Take 1 tablet by mouth daily folic acid (FOLVITE) 1 MG tablet, Take 1 tablet by mouth daily INVESTIGATIONS Last 3 CMP: Recent Labs 10/02/24 0408 10/03/24 0309 10/04/24 0525 NA 141 135* 133* K 3.8 4.0 4.1 CL 110* 104 102 CO2 22 20 21 BUN 41* 42* 40* CREATININE 2.1* 1.9* 1.8* CALCIUM 8.0* 7.7* 7.9* Last 3 CBC: Recent Labs 10/02/24 0408 10/03/24 0309 10/04/24 0525 WBC 8.0 8.6 8.0 RBC 2.94* 3.10* 3.48* HGB 8.4* 8.8* 9.8* HCT 25.8* 26.8* 29.9* MCV 87.8 86.5 85.9 MCH 28.6 28.4 28.2 MCHC 32.6 32.8 32.8 RDW 13.4 13.0 12.9 PLT 180 193 225 MPV 10.6 10.5 10.7 Please do not hesitate to call with questions This note is created with the assistance of a speech-recognition program. While intending to generate a document that actually reflects the content of the visit, no guarantees can be provided that every mistake has been identified and corrected by editing Corey Echevarria MD Internal Medicine Resident, PGY-3 [facility]; [place], [place] 10/04/2024, 9:11 AM Attending Physician Statement I have discussed the care of Ortiz Gorman, including pertinent history and exam findings with theresident/midlevel practitioner I have reviewed the swartz elements of all parts of the encounter with the resident/fellow. I have seen and examined the patient with the resident/fellow. I agree with theassessment, plan and orders as documented by the resident/midlevel practitioner. Carmencita Mata MD * Mary Lou Tom DO - 10/04/2024 8:45 AM EST [facility] Neurology IN-PATIENT SERVICE NEUROLOGY PROGRESS NOTE Date: 10/04/2024 Patient name: Ortiz Gorman Date of admission: 09/28/2024 Date of : 1975 Interval History: Started on LTM yesterday and noted to have 5 right central/parietal onset electrographic seizures. Per nursing staff, no clinical signs of seizure activity. Started on Keppra. His mentation is improved today. No seizures this morning thus far. Attempted to call his daughter to update. No response. History of Present Illness: Per my partner: The patient is a 48 y.o. male who presents after being found down at home. . The patient was seen and examined and the chart was reviewed. Limited records in the chart, basedon outside hospital ED note patient was found down at home covered in feces this morning, confused and slurring his words. Reportedly his last known well was about 8:30 PM last night. [facility]. Found to have significant elevation in his systolic blood pressure greater than 250s. Glucose was 820. Also noted to have ABHIJIT, elevated beta hydroxybutyrate, elevated troponins, lactic acidosis and ABG consistent with hypoxemia. He does have suppose it history of medication noncompliance and it is unclear if he has been off of his home medications recently. Patient was i ntubated for further airway protection and started on propofol drip. He was transferred to medical ICU at [facility]. Currently he is seen here at [place] ICU. Propofol drip is currently running. He had been on a Cardene drip for his elevated blood pressure but after being started on propofol blood pressures dropped on their own. Currently systolics in the 180s. Minimal response on examination at this time. Pupils are reactive, cough and gag is present. Withdrawing to pain in all 4 extremities. Patient was seen by our team back in January after initially coming in for headache and significant hypertension eventually being intubated. He had MRI brain which was abnormal showing hyperintensity in the perimesencephalic cistern region and bilateral cerebral convexities which could have been related to early meningitis versus remote subarachnoid hemorrhage. Patient underwent CSF studies which were noninfectious and no evidence of hemorrhage. Patient eventually improved and was extubated. He had repeat MRI brain done during that stay which showed improvement in the hyperintense regions although showed a new diffusion restriction in the right parietal lobe which could be related to stroke. Past Medical History: Past Medical History: Diagnosis Date Diabetes mellitus (HCC) Past Surgical History: Past Surgical History: Procedure Laterality Date APPENDECTOMY LEG SURGERY Right 10/30/2021 right intrarticular hip aspiration under fluro performed by Vincent Kuhn DO at [facility] OR Medications during admission: levoFLOXacin 250 mg Oral Daily levETIRAcetam 1,000 mg IntraVENous BID losartan 25 mg Oral Daily insulin lispro 0-8 Units SubCUTAneous 4x Daily AC & HS miconazole Topical BID insulin glargine 25 Units SubCUTAneous QAM amLODIPine 5 mg Oral Daily carvedilol 25 mg Oral BID WC [Held by provider] heparin (porcine) 5,000 Units SubCUTAneous 3 times per day sodium chloride flush 5-40 mL IntraVENous 2 times per day atorvastatin 40 mg Oral Nightly aspirin 81 mg Oral Daily Physical Exam: BP (!) 163/95 Pulse 69 Temp 97.6 F (36.4 C) (Oral) Resp 18 Ht 1.778 m (5' 10 ) Wt 82.3 kg(181 lb 7 oz) SpO2 99% BMI 26.03 kg/m Temp (24hrs), Av.9 F (36.6 C), Min:97.6 F (36.4 C), Max:98.2 F (36.8 C) Neurological examination: Mental status Awake, oriented to person, place ([facility]), time (09/2024), following all commands; speech is fluent, no dysarthria, aphasia. Cranial nerves II - left homonymous hemianopia; pupils reactive (4 mm OU) III, IV, - extraocular muscles intact; no [...] No tremors Sensory function Intact to touch, pin throughout Cerebellar Intact lyxobt-acal-uybvfz testing with mild bilateral kinetic tremor Reflex function 1/4 symmetric throughout . Downgoing plantar response bilaterally. (-)Freitas's sign bilaterally Gait Deferred Diagnostics: Laboratory Testing: CBC: Recent Labs 10/02/24 0408 10/03/24 0309 10/04/24 0525 WBC 8.0 8.6 8.0 HGB 8.4* 8.8* 9.8* PLT 180 193 225 BMP: Recent Labs 10/02/24 0408 10/03/24 0309 10/04/24 0525 NA 141 135* 133* K 3.8 4.0 4.1 CL 110* 104 102 CO2 22 20 21 BUN 41* 42* 40* CREATININE 2.1* 1.9* 1.8* GLUCOSE 80 170* 161* Lab Results Component Value Date CHOL 177 10/01/2024 HDL 49 10/01/2024 TRIG 213 (H) 10/01/2024 ALT 24 09/28/2024 AST 29 09/28/2024 TSH 1.19 10/03/2024 INR 1.1 10/04/2024 LABA1C 09/28/2024 Sent to reference laboratory. Separate report to follow. LABA1C >16.5 (H) 09/28/2024 [id number] 10/03/2024 MG 2.2 09/29/2024 PHOS 4.5 09/29/2024 Imaging/Diagnostics: EEG: Day 1 - 10/03/24, starting at 14:35 Interictal EEG Samples: The background activity consisted of 6-7 Hz of polymorphic theta activity of 30 to 35 V. There was poor anterior-posterior amplitude gradient. Background showed state change and reactivity. The background was continuous. During behavioral sleep, rudimentary sleep spindles were seen over both hemispheres. Frequent paracentral spike waves were seen 50- 80 V, at times with diffuse spread and right hemispheric predominance. These discharges also appeared a periodic pattern at0.5 Hz frequency, waxing and waning.. The EKG channel revealed no abnormalities. Ictal EEG Recording / Patient Events: During this period the patient had at least five subclinical seizures. Electrographically, the seizure started as burst of sharply contoured 4 Hz activity maximal over the right central parietal leads, 30-40 V which then gradually evolved into frequency of 2 Hzspike waves spreading onto the right temporal leads and central leads. The seizures occurred at 1940, 1951, 1958, 2006 and 2050. Summary: On this day of recording, the patient experienced at least five subclinical seizures originating from the right central-parietal leads, characterized by sharply contoured theta activity spreading to adjacent leads. The interictal EEG was abnormal, showing diffuse polymorphic theta slowing c onsistent with mild encephalopathy. Frequent paracentral and right hemispheric spike-wave discharges conferred an increased risk for focal onset seizures. Monitoring was continued to capture the patient's typical events. The EKG channel showed no abnormalities. Day 2 - 10/04/24, reviewed through 7:30 am Interictal EEG Samples: Interictal EEG was unchanged from yesterday. Previously seen right hemispheric sharp waves were not seen on today's recording. Ictal EEG Recording / Patient Events: During this period the patient had no events or seizures. Summary: During this day of recording no events were recorded. The interictal EEG was abnormal, showing diffuse polymorphic theta slowing consistent with mild encephalopathy. Monitoring was continuedto capture the patient's typical events. The EKG channel showed no abnormalities. ADRIAN BRYANT MD Diplomate, [place] Board of Psychiatry and Neurology Diplomate, [place] Board of Clinical Neurophysiology Diplomate, [place] Board of Epilepsy Please note this is a preliminary report and updated daily. The final report will have a summary ofbehavior and electrographic findings with clinical correlation. Results for orders placed during the hospital encounter of 09/28/24 MRI BRAIN WO CONTRAST Narrative EXAMINATION: MRI OF THE BRAIN WITHOUT CONTRAST 09/30/2024 11:32 am TECHNIQUE: Multiplanar multisequence MRI of the brain was performed without the administration of intravenous contrast. COMPARISON: 01/22/2024 HISTORY: ORDERING SYSTEM PROVIDED HISTORY: rule out PRES, stroke TECHNOLOGIST PROVIDED HISTORY: Rule out PRES, stroke Reason for Exam: rule out PRES, stroke Additional signs and symptoms: DKA, type 2, not at goal (HCC) FINDINGS: INTRACRANIAL STRUCTURES/VENTRICLES: There is abnormal increased T2/FLAIR signal intensity within the cortex and subcortical white matter of the right parietal lobe, right temporal lobe and right occipital lobe. There is a punctate focus of restricted diffusion within the cortex of the right parietal lobe. No acute intracranial hemorrhage. No mass effect or midline shift. No ventriculomegaly or abnormal extra-axial fluid collection present. The proximal portions of the [place] demonstrate normal flow voids. ORBITS: Limited evaluation of the orbits is unremarkable. SINUSES: Mild mucosal thickening is present within the paranasal sinuses. Trace fluid is present within the mastoid air cells. BONES/SOFT TISSUES: Bone marrow signal intensity is normal. Impression 1. Abnormal signal intensity within the cortex and subcortical white matter of the right parietal lobe, right temporal lobe and right occipital lobe in a distribution similar to the findings on the previous exam from 01/22/2024. Differential considerations include an encephalitis, postictal edema or asymmetric PRES (an uncommon presentation). 2. Punctate acute infarct within the cortex of the right parietal lobe. The findings were sent to the Radiology Results Communication Center at 1:34 pm on 09/30/2024 to be communicated to a licensed caregiver. Results for orders placed during the hospital encounter of 01/19/24 MRI BRAIN W WO CONTRAST Narrative EXAMINATION: [...] abnormal focus on brain or meningeal enhancement. Results for orders placed during the hospital encounter of 09/28/24 CT HEAD WO CONTRAST Narrative EXAMINATION: CT OF THE HEAD WITHOUT CONTRAST 09/28/2024 8:58 am TECHNIQUE: CT of the head was performed without the administration of intravenous contrast. Automated exposure control, iterative reconstruction, and/or weight based adjustment of the mA/kV was utilized to reduce the radiation dose to as low as reasonably achievable. COMPARISON: MRI brain performed 01/22/2024. HISTORY: ORDERING SYSTEM PROVIDED HISTORY: Stroke TECHNOLOGIST PROVIDED HISTORY: Stroke Decision Support Exception - unselect if not a suspected or confirmed emergency medical condition->Emergency Medical Condition (MA) FINDINGS: BRAIN/VENTRICLES: There is no acute intracranial hemorrhage, mass effect, or midline shift. There is satisfactory overall winkler-white matter differentiation. 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 The ventricular structures are symmetric and unremarkable. The infratentorial structures are unremarkable. ORBITS: The visualized portion of the orbits demonstrate no acute abnormality. SINUSES: The visualized paranasal sinuses and mastoid air cells demonstrate no acute abnormality. SOFT TISSUES/SKULL: No acute abnormality of the visualized skull or soft tissues. Impression No acute intracranial abnormality. Remote right parietal lobe infarct. I personally reviewed all of the above medications, clinical laboratory, imaging and other diagnostic tests. Impression: Right central/parietal onset subclinical seizures, in a patient with abnormal brain MRI with hyperintensity and diffusion restriction in right parietal region. Reviewed his MRI brain and compared to previous admission in January. I do think there is improvement in the FLAIR signal changes and diffusion restriction, noted with mild restriction in the posterior temporal region on the right. ?postictal changes. He has an independent punctate area of acute infarction in the right parietal cortical region. Possible initial MRI in January was atypical presentation of infarct. The independent punctate diffusion restriction is suggestive of a new area of infarction. Acute encephalopathy, resolving, in setting of above with additional metabolic confounders History of medication noncompliance Plan: Neurochecks per protocol Goal blood pressure normotensive Continue LTM Continue Keppra 1000 twice daily for now Given multiple subclinical seizures with somewhat atypical MRI findings as discussed above, will obtain LP to exclude underlying infectious process. Will also send autoimmune panel. He had a similar presentation last January. Will need repeat MRI brain outpatient Continue aspirin, statin. Aggressive vascular risk factor modification Will need cardiac monitoring for arrhythmias. PT/OT. We will continue to follow. Discussed with primary attending, Dr. Luna. Mary Lou Tom DO [facility] Neurology * Delmy Anderson, RN - 10/04/2024 3:35 AM EST 0245 - RN to bedside to find pt attempting to exit the bed and disconnected from LTME. Neuro resident aware. 0255 - telegraph repeater technician pest control chemical technician called to replace LTME monitoring. 0257 - telegraph repeater technician pest control chemical technician stated they would come replace LTME monitoring. 0444 - RN messaged pest control chemical technician asking for an updated eta to replace monitoring. 0445 - telegraph repeater technician tech stated they will be here in another hour. 0500 - Neuro resident updated. * Wendy Vega, PT - 10/03/2024 3:26 PM EST Images from the original note were not included. Physical Therapy Physical Therapy Cancel Note DATE: 10/03/2024 NAME: Ortiz Gorman : 1975 Patient not seen this date for Physical Therapy due to: Testing: Pt getting EEG at time of PT checking in. Discussed with RN. Ck 10/04 * Dean Clifford - 10/03/2024 3:20 PM EST Continuous EEG monitoring began. No MRI compatible leads were used. * Irena Piña OT - 10/03/2024 3:18 PM EST Images from the original note were not included. [facility] Occupational Therapy Not Seen Note DATE: 10/03/2024 NAME: Ortiz Gorman : 1975 Patient not seen this date for Occupational Therapy due to: Testing: Hold per RN for EEG. OT will check back tomorrow as able. Next Scheduled Treatment: 10/04 * Humberto Thakkar RN - 10/03/2024 12:37 PM EST Pt returned from stress test. Pt agitated asking from his hat (only belongings pt has are his glasses). Pt stated he just got his [place] RN attempted to redirect. Pt states RN is lying to him. Neuro aware. RN will continue to monitor safety and redirect. 1400 pt stated he knows he's at [facility] in [place] and that today Tuesday, September 2024. Pt is calm and pleasant but convinced that he was in a football field and got spray painted with red paint. Pt continues to ask for his cellphone and hat, neither of which are here. * Aleja Wagoner APRN - SARAH - 10/03/2024 12:00 PM EST Images from the original note were not included. [place] Landscaping Manager Progress Note Date: 10/03/2024 Patient name: Ortiz Gorman Date of admission: 09/28/2024 2:35 PM Date of : 1975 PCP: Vincent Winters MD Subjective: Patient seen and examined. Denies chest pain or shortness of breath in stress test Medications: Scheduled Meds: levoFLOXacin 250 mg Oral Daily losartan 25 mg Oral Daily insulin lispro 0-8 Units SubCUTAneous 4x Daily AC & HS miconazole Topical BID insulin glargine 25 Units SubCUTAneous QAM amLODIPine 5 mg Oral Daily carvedilol 25 mg Oral BID WC heparin (porcine) 5,000 Units SubCUTAneous 3 times per day sodium chloride flush 5-40 mL IntraVENous 2 times per day atorvastatin 40 mg Oral Nightly aspirin 81 mg Oral Daily Continuous Infusions: dextrose sodium chloride 10 mL/hr at 10/02/24 0721 CBC: Recent Labs 10/01/24 0541 10/02/24 0408 10/03/24 0309 WBC 7.3 8.0 8.6 HGB 8.3* 8.4* 8.8* PLT 180 180 193 BMP: Recent Labs 10/01/24 0541 10/02/24 0408 10/03/24 0309 NA 139 141 135* K 4.0 3.8 4.0 CL 108* 110* 104 CO2 23 22 20 BUN 46* 41* 42* CREATININE 2.3* 2.1* 1.9* GLUCOSE 180* 80 170* Hepatic: No results for input(s): AST , ALT , BILITOT , ALKPHOS in the last 72 hours. Invalid input(s): ALB Lab Results Component Value Date CHOL 177 10/01/2024 TRIG 213 (H) 10/01/2024 HDL 49 10/01/2024 LDL 85 10/01/2024 VLDL 43 (H) 10/01/2024 CHOLHDLRATIO 3.6 10/01/2024 INR: No results for input(s): INR in the last 72 hours. Objective: Vitals: BP (!) 168/104 Pulse 66 Temp 98.1 F (36.7 C) (Oral) Resp (!) 8 Ht 1.778 m (5' 10 ) Wt 79.8 kg (175 lb 14.8 oz) SpO2 98% BMI 25.24 kg/m General appearance: cooperative with exam HEENT: Normocephalic, atraumatic Neck: no carotid bruit, no JVD, trachea midline and thyroid not enlarged Lungs: clear to auscultation bilaterally Heart: regular rate and rhythm, S1, S2 normal, no murmur Abdomen: soft, bowel sounds normal Extremities: no edema or swelling EKG: Results for orders placed or performed during the hospital encounter of 09/28/24 EKG 12 Lead Result Value Ref Range Ventricular Rate 111 BPM Atrial Rate 111 BPM P-R Interval 166 ms QRS Duration 82 ms Q-T Interval 336 ms QTc Calculation (Bazett) 456 ms P [place] 79 degrees R [place] 68 degrees T [place] 68 degrees Narrative Sinus tachycardia Possible Left atrial enlargement Nonspecific ST abnormality Abnormal ECG No previous ECGs available Echo: Results for orders placed or performed during the hospital encounter of 10/27/21 Echocardiogram complete 2D with doppler with color Result Value Ref Range Left Ventricular Ejection Fraction 60 LVEF MODALITY ECHO Narrative [facility] Transthoracic Echocardiography Report (TTE) Patient Name SHERIF Date of Study 10/30/2021 ORTIZ Quezada Date of 1975 Gender Male Age 45 year(s) Race Room Number I307 Height: 71 inch, 180.34 cm Corporate ID [id number] Weight: 174 pounds, 78.9 kg # Patient Acct [id number] BSA: 1.99 m^2 BMI: 24.27 # kg/m^2 MR # [id number] Supervisor [employer] Britt,Raysa Interpreting Physician Sammie Sher Fellow Referring Nurse Sarita Arzola CNP Practitioner Interpreting Referring Physician Fellow Type of Study TTE procedure:2D Echocardiogram, M-Mode, Doppler, Color Doppler. Procedure Date Date: 10/30/2021 Start: 02:34 PM Study Location: [facility] Indications:Tachycardia. History / Tech. Comments: Dx: tachycardia, infection Patient Status: Inpatient Height: 71 inches Weight: 174 pounds BSA: 1.99 m^2 BMI: 24.27 kg/m^2 CONCLUSIONS Summary Global left ventricular systolic function appears preserved with an estimated ejection fraction of >60%. The left ventricular cavity size is within normal limits and the left ventricular wall thickness is mildly increased. No definite specific wall motion abnormalities were identified. No significant valvular abnormalities. Evidence of mild diastolic dysfunction is seen. No prior studies were available for comparison. No evidence of infective endocarditis was identified in this study. Consider KEELEY if clinically indicated. Signature FINDINGS Left Atrium Left atrium is normal in size. Left Ventricle Global left ventricular systolic function appears preserved with an estimated ejection fraction of >60%. The left ventricular cavity size is within normal limits and the left ventricular wall thickness is mildly increased. No definite specific wall motion abnormalities were identified. Right Atrium Right atrium is normal in size. Right Ventricle Normal right ventricular size and function. Mitral Valve Normal mitral valve structure and function. Aortic Valve Normal aortic valve structure and function without stenosis or regurgitation. Tricuspid Valve Normal tricuspid valve structure and function. Pulmonic Valve The pulmonic valve is normal in structure. Pericardial Effusion No significant pericardial effusion is seen. Miscellaneous Evidence of mild diastolic dysfunction is seen. Normal aortic root dimension. M-mode / 2D Measurements & Calculations: LVIDd:4.42 cm(3.7 - 5.6 cm) Diastolic Volume:86.23 ml LVIDs:3.13 cm(2.2 - 4.0 cm) Systolic Volume:30.7 ml IVSd:1.06 cm(0.6 - 1.1 cm) Aortic Root:3.35 cm(2.0 - 3.7 cm) LVPWd:1.04 cm(0.6 - 1.1 cm) LA Dimension: 2.48 cm(1.9 - 4.0 cm) Fractional Shortenin.19 % LA volume/Index: 46.2 ml /23m^2 Calculated LVEF (%): 64.4 % AV Cusp Separation: 2.11 cm Mitral: Aortic Valve Area (P1/2-Time): 5.35 cm^2 Peak Velocity: 0.98 m/s Peak E-Wave: 0.66 m/s Mean Velocity: 0.74 m/s Peak A-Wave: 0.56 m/s Peak Gradient: 3.82 mmHg E/A Ratio: 1.18 Mean Gradient: 2.43 mmHg Peak Gradient: 1.77 mmHg Acceleration Time: 49.73 msec P1/2t: 41.13 msec AV VTI: 17.11 cm Diastology / Tissue Doppler Lateral Wall E' velocity:0.11 m/s Lateral Wall E/E':6.51 09/28/24 ECHO (TTE) COMPLETE (PRN CONTRAST/BUBBLE/STRAIN/3D) 09/29/2024 10:25 PM (Final) Interpretation Summary Left Ventricle: Normal left ventricular systolic function with a visually estimated EF of 60 - 65%.EF by 2D Simpsons Biplane is 65%. Left ventricle size is normal. Increased wall thickness. Findingsconsistent with moderate concentric hypertrophy. Normal wall motion. Global longitudinal strain is -16.7%. Normal diastolic function. Aortic Valve: Trileaflet valve. Mitral Valve: Mild regurgitation. Pericardium: Trivial pericardial effusion present. Image quality is adequate. Signed by: Kika Raymond DO on 09/29/2024 10:25 PM Hospital Problems Last Modified POA * (Principal) DKA, type 2, not at goal (FORM[facility]LY [facility]) 09/28/2024 Yes NSTEMI (non-ST elevated myocardial infarction) ([facility]) 09/29/2024 Yes Acute metabolic encephalopathy 09/30/2024 Yes Acute hypoxemic respiratory failure 09/28/2024 Yes Abnormal finding on MRI of brain 10/01/2024 Yes Assessment: Elevated Troponins- likely type II MS HTN emergency- off cardene drip AMS-extubated on 10/01 ABHIJIT Sepsis 2/2 pneumonia DKA Normal TTE 01/2024 Plan: Hemodynamically stable - continue asa , statin Norvasc and coreg ECHO as above Volume management per nephrology Awaiting stress test if low risk then can be discharged from cardiac standpoint [place] [employer] [phone] * Jerod De La Cruz, [facility] - 10/03/2024 10:18 AM EST Pharmacy Note Renal Dose Adjustment Ortiz Gorman is a 48 y.o. male. Pharmacist assessment of renally cleared medications. Recent Labs 10/02/24 0408 10/03/24 0309 BUN 41* 42* Recent Labs 10/02/24 0408 10/03/24 0309 CREATININE 2.1* 1.9* Estimated Creatinine Clearance: 48 mL/min (A) (based on SCr of 1.9 mg/dL (H)). Height: Ht Readings from Last 1 Encounters: 09/29/24 1.778 m (5' 10 ) Weight: Wt Readings from Last 1 Encounters: 10/03/24 79.8 kg (175 lb 14.8 oz) The following medication dose has been adjusted based upon renal function per P&T Guidelines: Levofloxacin 500 mg every other day --> Levofloxacin 250 mg daily Jerod Pryor, PharmD, [facility] 10/03/2024 10:18 AM * Sunshine Carmona RD - 10/03/2024 9:30 AM EST Nutrition Assessment Type and Reason for Visit: Reassess Nutrition Recommendations/Plan: Continue NPO as medically necessary When able, re-start 4 carb restriction diabetic diet Monitor intakes, wt, meds, labs Malnutrition Assessment: Malnutrition Status: Insufficient data Nutrition Assessment: Reassess for TF tolerance. Pt started 4 carb diet 10/01 and TF's d/c 10/01. Tolerated 4 carb diabetic diet priot to NPO for cardiac stress test today. Consumed 100% of meals. PO intake documented 10/02 as 76-100%. LBM 10/03. Trace generalized, RUE, adn BLE and +2 pitting LUE edema. Labs: BG 133-170mg/dL, Na 135 mmol/L, Ca 7.7 mg/dL. Estimated Daily Nutrient Needs: Energy (kcal): 2395-1832 kcal/d Weight Used for Energy Requirements: Current Protein (g): 80-120 gm/d Weight Used for Protein Requirements: Current Fluid (ml/day): or per physician Method Used for Fluid Requirements: 1 ml/kcal Nutrition Related Findings: Meds/labs reviewed Wound Type: None Current Nutrition Therapies: Diet NPO Anthropometric Measures: Height: 177.8 cm (5' 10 ) Current Body Wt: 79.4 kg (175 lb) BMI: 25.1 Nutrition Diagnosis: No nutrition diagnosis at this time Food and/or Nutrient Delivery: Continue NPO, Start Oral Diet Nutrition Education/Counseling: No recommendation at this time Coordination of Nutrition Care: No recommendation at this time Goals: Goals: Maintain adequate nutrition status, by next RD assessment Type of Goal: Continue current goal Previous Goal Met: Goal(s) Achieved Nutrition Monitoring and Evaluation: Behavioral-Environmental Outcomes: None Identified Food/Nutrient Intake Outcomes: Food and Nutrient Intake Physical Signs/Symptoms Outcomes: Biochemical Data, Weight Discharge Planning: No discharge needs at this time Sunshine Carmona, MS, RDN, LDN Contact: [phone] * Joseline Teague RN - 10/03/2024 8:26 AM EST Inpatient Diabetes Education Ortiz Gorman was seen for follow up. Please see previous notes for more information. They have been copied below for reference. Lab Results Component Value Date LABA1C 09/28/2024 Sent to reference laboratory. Separate report to follow. LABA1C >16.5 (H) 09/28/2024 LABA1C 09/28/2024 Sent to reference laboratory. Separate report to follow. Today we focused on education about insulin. The general concept of long and short acting insulin has been retained by the patient. BD book about insulin (along with our business card/contact info) given and we reviewed several pages in the book together. Ortiz was puzzled by my question of Where on the body should insulin be injected? After a long pause, he replied the finger . We discussed the difference between checking blood sugar and taking insulin. I next put an insulin pen and injection dome in front of him as asked him to show me how to use an insulin pen. He was confused and was not able to perform this skill. I spoke with his nurse, Humberto, about my interaction with the patient. She states that the patient has a daughter. She took my number (Diabetes Education Ph. [phone]) and the plan is that she will call and maybe I can work with the daughter about diabetes education. Thank you, JOSELINE TEAGUE RN PREVIOUS DOCUMENTATION COPIED BELOW FOR REFERENCE. Inpatient Diabetes Education Previous documentation on Ortiz Gorman at the end of this note - has been copied for reference. Lab Results Component Value Date LABA1C 09/28/2024 Sent to reference laboratory. Separate report to follow. LABA1C >16.5 (H) 09/28/2024 LABA1C 09/28/2024 Sent to reference laboratory. Separate report to follow. Ortiz is now extubated and can engage in basic Diabetes Education. Ortiz speaks slowly and pauses before answering questions. Ortiz was not able to tell me how long he has had diabetes, only that it hasbeen a long time . He was able to tell me that he was ordered to be on both long and short acting insulin. He admits to not taking it because he was being bullheaded . He was not able to clearly articulate how he was able to check his blood sugar at home. He may at one point had a Dexcom CGM. He may at one point hador has a glucometer. I displayed empathy for his high level of diabetes distress and burnout. He was receptive to a conversation about the need for consistency in his diabetes self-care. Per chart review, Care Coordination mentions working to get patient set up with [facility]. Patient states that he is aware of this and is looking forward to this support and help. Verbally reviewed the following Diabetes Survival Skills with patient: A1C, Blood glucose targets, hypo and hyperglycemia, importance of home blood glucose monitoring, healthy eating, be active as recommended by health care providers, take insulin as directed Thank you for the referral. Will continue to round on patient as time allows to provide support, encouragement and education. JOSELINE TEAGUE RN Previous documentation copied below for reference. Inpatient Diabetes Education Rounded on Ortiz Gorman. Intubated, no family at bedside. Left folder with our contact information at the bedside. Lab Results Component Value Date LABA1C 09/28/2024 Sent to reference laboratory. Separate report to follow. LABA1C >16.5 (H) 09/28/2024 LABA1C 09/28/2024 Sent to reference laboratory. Separate report to follow. JOSELINE TEAGUE RN Note from Tuesday copied below for reference Diabetes Education Note Referral for diabetes education received per DKA orderset. Pt [facility]ed [facility] ER admitted to 3002: Diabetic ketoacidosis with coma associated with type 2 diabetes mellitus (HCC), Pneumonia of left lower lobe due to infectious organism, Altered mental status, unspecified altered mental status type, ABHIJIT (acute kidney injury) (HCC), Acute respiratory failure with hypoxia, H ypertensive encephalopathy, Non compliance w medication regimen. Adm BS 820, HgbA1c 12% pt intubated and placed on insulin drip. Will follow and provide DM education at a more appropriate time. Rhoda Healy, MD - 10/03/2024 8:10 AM EST Images from the original note were not included. [facility] Office: [phone] Andrew Hernandez DO, Ernie Escalante DO, Hal Atwood DO, Carlos Trejo DO, Ora Sharp MD, Dawna Chaney MD, Bassam Sher MD, Rhoda Luna MD, Lc Ibarra MD, Elyssa Yee MD, Jeimy Mireles MD, Franck Solis DO, Jelena Damon MD, Rashid Mathew MD, Felix Hernandez DO, Suzan Abbasi MD, Kulwinder Polk DO, Adriana Abdalla MD, Trino Gilliland MD, Peggy Cook MD, Clovis Mares MD, Db Lindquist MD, Judy Alvarez MD, Anne Quan MD, Roseline Forrest MD, Denilson Oliveira MD, Vilma Steel MD, Ludmila Best DO, Bradly Nassar MD, Sarita Mcmullen CNP, Linda Lynch CNP, Ludmila Aguilera CNP, Lina Morgan DNP, Nini Raya CNP, Giuliana Mae CNP, Myra Almodovar CNP, Suzy Dooley CNP, GLADIS RankinC, GLADIS FosterC, Shelly Rainey CNP, Manny Laura CNP, Yenny Motta CNP, Claudine Parrish CNP, Maame Carter CNP, Edilma Garza, PARKER [facility] IN-PATIENT SERVICE [facility] Progress Note 10/03/2024 8:10 AM Name: Ortiz Gorman Acct: [id number] Room: 0165/0165-01 Day: 5 Admit Date: 09/28/2024 2:35 PM PCP: Vincent Witners MD Code Status: Full Code Subjective: C/C: SOB Interval History Status: improved. Patient seen and examined at bedside, no acute events overnight. Reports of altered mentation overnight Patient denies any chest pain, shortness of breath, chills, fevers, nausea or vomiting. Patient vitals, labs and all providers notes were reviewed,from overnight shift and morning updateswere noted and discussed with the nurse Brief History: Per chart This 48-year-old male was admitted to the hospital with DKA and acute hypoxic respiratory failure. The patient did require mechanical ventilation and has been successfully extubated. Concerns for pneumonia existed and he has been maintained on Zosyn since admission. The patient's breathing has improved and his DKA treated accordingly. He is presently on Lantus and sliding scale. The patient had significant elevation of his blood pressure and antihypertensive medications have been initiated. He is presently been started on Cozaar, Coreg, Norvasc. Cardiology was consulted due to elevated cardiac enzymes. Echocardiogram demonstrated preserved ejection fraction and recommendations are for stress test at a later date. He does have an element of acute on kidney failure secondary to above which is improving since admission. At this point in time his biggest complaint is that of generalized weakness secondary to his hospitalization. We will ask PT/OT to evaluate the patient for recommendations regarding safe disposition. The patient denies any questions or concerns at this point in time Review of Systems: Review of Systems Constitutional: Positive for activity change and appetite change. Negative for chills, diaphoresis and fever. HENT: Negative for congestion. Eyes: Negative for visual disturbance. Respiratory: Negative for cough, chest tightness, shortness of breath and wheezing. Cardiovascular: Negative for chest pain, palpitations and leg swelling. Gastrointestinal: Negative for abdominal pain, blood in stool, constipation, diarrhea, nausea and vomiting. Genitourinary: Negative for difficulty urinating. Neurological: Negative for dizziness, weakness, light-headedness, numbness (BLE , chronic) and headaches. Psychiatric/Behavioral: Positive for confusion. All other systems reviewed and are negative. Medications: Allergies: No Known Allergies Current Meds: Scheduled Meds: losartan 25 mg Oral Daily insulin lispro 0-8 Units SubCUTAneous 4x Daily AC & HS miconazole Topical BID levoFLOXacin 500 mg Oral Every Other Day insulin glargine 25 Units SubCUTAneous QAM amLODIPine 5 mg Oral Daily carvedilol 25 mg Oral BID WC heparin (porcine) 5,000 Units SubCUTAneous 3 times per day sodium chloride flush 5-40 mL IntraVENous 2 times per day atorvastatin 40 mg Oral Nightly aspirin 81 mg Oral Daily Continuous Infusions: dextrose sodium chloride 10 mL/hr at 10/02/24 0721 dextrose 5 % and 0.45 % NaCl Stopped (09/29/24 1200) PRN Meds: glucose, dextrose bolus OR dextrose bolus, glucagon (rDNA), dextrose, hydrALAZINE, sodium chloride flush, sodium chloride, potassium chloride OR potassium chloride, magnesium sulfate, ondansetron OR ondansetron, polyethylene glycol, acetaminophen OR acetaminophen, dextrose bolus OR dextrose bolus, potassium chloride, magnesium sulfate, sodium phosphate 15 mmol in sodium chloride 0.9 % 250 mL IVPB, dextrose 5 % and 0.45 % NaCl, labetalol Data: Past Medical History: has a past medical history of Diabetes mellitus (HCC). Social History: reports that he has never smoked. His smokeless tobacco use includes chew. He reports that he does not currently use alcohol. He reports that he does not use drugs. Family History: No family history on file. Vitals: BP (!) 171/96 Pulse 65 Temp 97.7 F (36.5 C) (Axillary) Resp 18 Ht 1.778 m (5' 10 ) Wt 79.8 kg (175 lb 14.8 oz) SpO2 100% BMI 25.24 kg/m Temp (24hrs), Av.8 F (36.6 C), Min:97.6 F (36.4 C), Max:98 F (36.7 C) Recent Labs 10/02/24 1100 10/02/24 1309 10/02/24 1701 10/02/24 2045 POCGLU 175* 211* 219* 224* I/O (24Hr): Intake/Output Summary (Last 24 hours) at 10/03/2024 0810 Last data filed at 10/03/2024 0710 Gross per 24 hour Intake 100 ml Output 1300 ml Net -1200 ml Labs: Hematology: Recent Labs 10/01/24 0541 10/02/24 0408 10/03/24 0309 WBC 7.3 8.0 8.6 RBC 2.89* 2.94* 3.10* HGB 8.3* 8.4* 8.8* HCT 26.0* 25.8* 26.8* MCV 90.0 87.8 86.5 MCH 28.7 28.6 28.4 MCHC 31.9 32.6 32.8 RDW 13.3 13.4 13.0 PLT 180 180 193 MPV 10.9 10.6 10.5 Chemistry: Recent Labs 09/30/24 1001 10/01/24 0541 10/01/24 0806 10/02/24 0408 10/03/24 0309 NA -- 139 -- 141 135* K -- 4.0 -- 3.8 4.0 CL -- 108* -- 110* 104 CO2 -- 23 -- 22 20 GLUCOSE -- 180* -- 80 170* BUN -- 46* -- 41* 42* CREATININE -- 2.3* -- 2.1* 1.9* ANIONGAP -- 8* -- 9 11 LABGLOM -- 34* -- 38* 42* CALCIUM -- 8.1* -- 8.0* 7.7* CAION 1.20 -- 1.13 -- -- Recent Labs 10/01/24 0541 10/01/24 0729 10/01/24 2007 10/02/24 0619 10/02/24 1100 10/02/24 1309 10/02/24 1701 10/02/24 2045 CHOL 177 -- -- -- -- -- -- -- HDL 49 -- -- -- -- -- -- -- CHOLHDLRATIO 3.6 -- -- -- -- -- -- -- TRIG 213* -- -- -- -- -- -- -- VLDL 43* -- -- -- -- -- -- -- POCGLU -- < > 126* 81 175* 211* 219* 224* < > = values in this interval not displayed. ABG: Lab Results Component Value Date/Time POCPH 7.480 10/01/2024 04:26 AM PHART 7.385 09/28/2024 09:42 AM POCPCO2 33.7 10/01/2024 04:26 AM WOA2SQY 35.2 09/28/2024 09:42 AM POCPO2 143.0 10/01/2024 04:26 AM PO2ART 72.2 09/28/2024 09:42 AM POCHCO3 25.1 10/01/2024 04:26 AM QYJ5MBH 20.6 09/28/2024 09:42 AM NBEA 3.7 09/28/2024 09:42 AM PBEA 1.5 10/01/2024 04:26 AM ITKZ7GOS 99.4 10/01/2024 04:26 AM [id number] 94.5 09/28/2024 09:42 AM FIO2 30.0 10/01/2024 04:26 AM Lab Results Component Value Date/Time SPECIAL Site: Respiratory specimen 09/28/2024 08:54 PM Lab Results Component Value Date/Time CULTURE NORMAL RESPIRATORY AYDEN LIGHT GROWTH 09/28/2024 08:54 PM Radiology: MRI BRAIN WO CONTRAST Result Date: 09/30/2024 1. Abnormal signal intensity within the cortex and subcortical white matter of the right parietal lobe, right temporal lobe and right occipital lobe in a distribution similar to the findings on the previous exam from 01/22/2024. Differential considerations include an encephalitis, postictal edema or a symmetric PRES (an uncommon presentation). 2. Punctate acute infarct within the cortex of the rightparietal lobe. The findings were sent to the Radiology Results Communication Center at 1:34 pm on 09/30/2024 to be communicated to a licensed caregiver. US RENAL COMPLETE Result Date: 09/29/2024 1. No evidence of hydronephrosis. 2. Mildly hyperechoic kidneys bilaterally suggesting medical renal disease. 3. Unremarkable appearance of the bladder. A Lin catheter is in place. XR ABDOMEN FOR NG/OG/NE TUBE PLACEMENT Result Date: 09/28/2024 Enteric tube appears to be in appropriate position. XR CHEST PORTABLE Result Date: 09/28/2024 No acute cardiopulmonary process. Endotracheal tube with the tip in the midtrachea. CT CHEST ABDOMEN PELVIS W CONTRAST Additional Contrast? None Result Date: 09/28/2024 Few ground-glass opacities laterally in the left lung concerning for an infectious process. Trace amount of fluid and potential inflammation adjacent to the pancreas concerning for pancreatitis. CTA HEAD NECK W CONTRAST Result Date: 09/28/2024 No significant stenosis or evidence for large vessel occlusion. Few partially visualized ground-glass opacities in the left lung concerning for pneumonia. CT HEAD WO CONTRAST Result Date: 09/28/2024 No acute intracranial abnormality. Remote right parietal lobe infarct. Physical Examination: Physical Exam Vitals and nursing note reviewed. Constitutional: General: He is not in acute distress. Comments: Undergoing EEG currently HENT: Head: Normocephalic and atraumatic. Eyes: Conjunctiva/sclera: Conjunctivae normal. Pupils: Pupils are equal, round, and reactive to light. Cardiovascular: Rate and Rhythm: Normal rate and regular rhythm. Heart sounds: No murmur heard. Pulmonary: Effort: Pulmonary effort is normal. No accessory muscle usage or respiratory distress. Breath sounds: No stridor. No decreased breath sounds, wheezing, rhonchi or rales. Abdominal: General: Bowel sounds are normal. There is no distension. Palpations: Abdomen is soft. Abdomen is not rigid. Tenderness: There is no abdominal tenderness. There is no guarding. Musculoskeletal: General: No tenderness. Skin: General: Skin is warm and dry. Findings: No erythema, lesion or rash. Comments: Multiple old wounds on BLE chins Neurological: Mental Status: He is alert and oriented to person, place, and time. Cranial Nerves: No cranial nerve deficit. Motor: No seizure activity. Psychiatric: Speech: Speech normal. Behavior: Behavior normal. Behavior is cooperative. Assessment: Hospital Problems Last Modified POA * (Principal) DKA, type 2, not at goal ([facility]) 09/28/2024 Yes NSTEMI (non-ST elevated myocardial infarction) ([facility]) 09/29/2024 Yes Acute metabolic encephalopathy 09/30/2024 Yes Acute hypoxemic respiratory failure 09/28/2024 Yes Abnormal finding on MRI of brain 10/01/2024 Yes Plan: DKA NSTEMI Hypertensive Emergency Abnormal MRI brain with hyperintensity and diffusion restriction in the right parietal region ( stable sine MRI in 02/07) -Punctate infarct in the right parietal lobe Acute metabolic encephalopathy Acute hypoxemic respiratory failure - DKA resolved - Continue Lantus and SS - For the nstemi patient is getting stress test this am - Received Abx for concerns for aspiration PNA - Successfully extubated 10/01 - Continue to monitor creatinine and avoid nephrotoxic agents - Neuro recommending repeat MRI in 4 weeks - Neuro seen again today 2/2 intermittent confusion and starring episodes and he is currently on EEG - Discussed with the patient , his kids at bedside , explained importance of compliance after discharge and he expressed understanding Discussed with the nurse Rhoda Luna MD 10/03/2024 8:10 AM * Marce Restrepo, [employer]GER - [employer] - 10/03/2024 7:47 AM EST NEUROLOGY INPATIENT PROGRESS NOTE 10/03/2024 Current Exam: Chart reviewed. Discussed with RN. Patient overall feels well, has no complaints of headache, numbness, tingling, weakness. He has had intermittent periods of confusion and hallucinations since yesterday evening. No clear seizure activity. RN reports he gets confused, believes he is next to railroad tracks and then seems to abruptly snap out of it. Brief History: Ortiz Gorman is a 48 y.o. male with H/O DM, who was admitted on 09/28/2024 after being found downat home, reportedly covered in feces, confused, and slurring his words. He was taken to [facility] where he was found to have significantly elevated SBP greater than 250s, glucose was 820. He was also found to have ABHIJIT, elevated troponins, lactic acidosis, and ABG consistent with hypoxemia. Danielleoes have a history of medication noncompliance. He was intubated for airway protection, sedated, and transferred to [facility] to the ICU. MRI brain was done showing a similar abnormality as compared to January 2024 with density/diffusion restriction in the right parietal region. Patient was seen by our team in January 2024 after presenting with a headache and significant hypertension. MRI done at that time showed hyperintensity in the perimesencephalic cistern region with bilateral cerebral convexities which could be related to early meningitis versus remote SAH. CSF studiesat that time are noninfectious and with no evidence of hemorrhage. He eventually improved and was extubated with repeat imaging done during that stay showing improvement in the hyperintense regions although showed a new diffusion restriction in the right parietal lobe which could be related to a stroke. No current facility-administered medications on file prior to encounter. Current Outpatient Medications on File Prior to Encounter Medication Sig Dispense Refill insulin lispro (HUMALOG) 100 UNIT/ML SOLN injection vial Inject 0-16 Units into the skin 3 times daily (with meals) 30 mL 1 insulin glargine (LANTUS SOLOSTAR) 100 UNIT/ML injection pen Inject 20 Units into the skin nightly 5 Adjustable Dose Pre-filled Pen Syringe 3 carvedilol (COREG) 12.5 MG tablet Take 1 tablet by mouth 2 times daily (with meals) 60 tablet 3 NIFEdipine (PROCARDIA XL) 30 MG extended release tablet Take 1 tablet by mouth daily 30 tablet 3 folic acid (FOLVITE) 1 MG tablet Take 1 tablet by mouth daily 30 tablet 3 Allergies: Ortiz Gorman has No Known Allergies. Past Medical History: Diagnosis Date Diabetes mellitus (HCC) Past Surgical History: Procedure Laterality Date APPENDECTOMY LEG SURGERY Right 10/30/2021 right intrarticular hip aspiration under fluro performed by Vincent Kuhn DO at [facility] OR Social History: Ortiz Gorman reports that he has never smoked. His smokeless tobacco use includeschew. He reports that he does not currently use alcohol. He reports that he does not use drugs. No family history on file. Objective: BP (!) 171/96 Pulse 65 Temp 97.7 F (36.5 C) (Axillary) Resp 18 Ht 1.778 m (5' 10 ) Wt 79.8 kg (175 lb 14.8 oz) SpO2 100% BMI 25.24 kg/m Blood pressure range: Systolic (24hrs), Av , Min:110 , Max:176 ; Diastolic (24hrs), Av, Min:64, Max:108 ROS: Constitutional Negative for fever and chills HEENT Negative for ear discharge, ear pain, nosebleed. L visual field cut Eyes Negative for photophobia, pain and discharge [...] NC/ AT NECK Supple MENTAL STATUS: Alert, oriented to month, year, but not to place or situation at this time, some confusion noted, normal speech, normal language, no hallucination or delusion. Intact naming. Can statethe days of the week forward and backward. Cannot add cents. CRANIAL NERVES: II - L visual field cut III,IV, - EOMs full, no afferent defect, no PRESTON, no ptosis V - Normal facial sensation VII - Normal facial symmetry VIII - Intact hearing IX,X - Symmetrical palate XI - Symmetrical shoulder shrug XII - Midline tongue, no atrophy MOTOR FUNCTION: Lifts all limbs easily antigravity with normal bulk, normal tone and no involuntarymovements, no tremor SENSORY FUNCTION: Normal touch, normal pin CEREBELLAR FUNCTION: No tremor REFLEX FUNCTION: Symmetric, no perverted reflex, no Babinski sign STATION and GAIT Not tested Data: Lab Results: CBC: Recent Labs 10/01/24 0541 10/02/24 0408 10/03/24 0309 WBC 7.3 8.0 8.6 HGB 8.3* 8.4* 8.8* PLT 180 180 193 BMP: Recent Labs 10/01/24 0541 10/02/24 0408 10/03/24 0309 NA 139 141 135* K 4.0 3.8 4.0 CL 108* 110* 104 CO2 23 22 20 BUN 46* 41* 42* CREATININE 2.3* 2.1* 1.9* GLUCOSE 180* 80 170* Lab Results Component Value Date CHOL 177 10/01/2024 HDL 49 10/01/2024 TRIG 213 (H) 10/01/2024 ALT 24 09/28/2024 AST 29 09/28/2024 TSH 0.58 01/19/2024 INR 1.1 09/28/2024 LABA1C 09/28/2024 Sent to reference laboratory. Separate report to follow. LABA1C >16.5 (H) 09/28/2024 MG 2.2 09/29/2024 PHOS 4.5 09/29/2024 Diagnostic data reviewed: CT HEAD (09/28/24) - No acute intracranial abnormality. Remote right parietal lobe infarct. CTA HEAD AND NECK (09/28/24) - No significant stenosis or evidence for large vessel occlusion. Few partially visualized ground-glass opacities in the left lung concerning for pneumonia. BRAIN MRI (09/30/24) - 1. Abnormal signal intensity within the cortex and subcortical white matter of the right parietal lobe, right temporal lobe and right occipital lobe in a distribution similar to the findings on the previous exam from 01/22/2024. Differential considerations include an encephalitis, postictal edema or asymmetric PRES (an uncommon presentation). 2. Punctate acute infarct within the cortex of the right parietal lobe. EEG (10/09/24) - Abnormal awake EEG. The slowing mentioned above suggests moderate non specific encephalopathy. No epileptiform discharges were identified. ECHO (10/09/24) - Left Ventricle: Normal left ventricular systolic function with a visually estimated EF of 60 - 65%.EF by 2D Simpsons Biplane is 65%. Left ventricle size is normal. Increased wall thickness. Findingsconsistent with moderate concentric hypertrophy. Normal wall motion. Global longitudinal strain is -16.7%. Normal diastolic function. Aortic Valve: Trileaflet valve. Mitral Valve: Mild regurgitation. Pericardium: Trivial pericardial effusion present. Image quality is adequate. Impression: -Acute metabolic encephalopathy in the setting of DKA, hypertensive urgency, improving -Abnormal MRI brain with hyperintensity and diffusion restriction in the right parietal region -Punctate infarct in the right parietal lobe -History of medication non compliance Plan: -Given patient's episodic periods of altered mentation/hallucinations, will plan to hook him up to LTME to ensure these are not seizure episodes. Will hold off on AED at this time. -Recommend repeat MRI brain in 4 weeks -Recommend 30 day Holter on discharge -There is a punctate area of infarct, in the setting of severe hyperglycemia and hypertension. Hgb A1C >16.5, LDL 85 -Patient needs stricter control of stroke risk factors -He continues on ASA and statin daily -Continued management of metabolic disturbances as per primary team -We will follow Please note that this note was generated using a voice recognition dictation software. Although every effort was made to ensure the accuracy of this automated harpsichord maker, some errors in harpsichord maker may have occurred. Associated attestation - Mary Lou Tom DO - 10/03/2024 1:10 PM EST Attending Physician Statement: I have discussed the care of Ortiz Gorman, including pertinent history and exam findings with theAPP. I have seen and examined the patient and the swartz elements of the encounter have been performedby me. I have reviewed medications, clinical laboratory, imaging and other diagnostic tests with the PAT. I agree with the assessment, plan and orders as documented by the PAT with changes made to the note as needed. In addition: Initially improved yesterday but subsequently started having fluctuations in mentation and hallucinations overnight. Needed to be redirected. At time of evaluation, he is oriented x 3 and asking to be discharged. Still somewhat inattentive. Suspect component of delirium. We spoke with his daughter over phone who stated that he had a similar course during and after last hospitalization in January. He remained intermittently confused and cognitively slow for 3 to 4 weeks after hospitalization. Per chart review, was admitted last year at [facility] and also had delirium. In abundance of caution, given fluctuations in mentation, will monitor on LTM. We will continue to follow. Mary Lou Tom, DO 10/03/2024 1:05 PM * Humberto Thakkar RN - 10/02/2024 8:05 PM EST 1909 pt bed alarm went off. RN x2 went to pt room. Pt laying in bed but at the edge. Pt stating that he needs help getting up and getting home. RN's asked pt where he was and pt stated he was at the [facility] near the [employer] track. RN attempted to reorient the pt and pt continued to reiterate that he was at [facility] near the [employer] [place]. RN's repositioned pt in bed and did assessment on pt. 1919 Pt looked at RN in room and asked when he got back to his bed. RN stated he's been here the entire time. Pt said he was just outside and that he felt like he was standing next to the railroad track and began describing the outdoor scenery. RN assessed pt for s/s of stroke- vitals are WNL, eyesfollowing RN fingers, A&O for year, location, situation, person. Pt sensation intact. Speech clear and linear. Face and extremity movements are symmetrical. 1738 RN PS Neuro resident. 1741 Resident at bedside to assess pt. Pt returned to baseline. Neuro instructed to continue to monitor for any more changes. 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 Parents said pt wore glasses that he would take off to read or see things up close but they did not know about any other eye sight abnormalities. Pt gait was WNL. Pt able to hold conversation that was consistent and flow in an appropriate manner. Parents went on to say they were unaware of pt stroke in January of 2024. They knew he was noncompliant with his meds and that he could be bull-headed but were unaware of any other issues that might lead up to this. * Joseline Teague RN - 10/02/2024 3:15 PM EST Inpatient Diabetes Education Previous documentation on Ortiz Gorman at the end of this note - has been copied for reference. Lab Results Component Value Date LABA1C 09/28/2024 Sent to reference laboratory. Separate report to follow. LABA1C >16.5 (H) 09/28/2024 LABA1C 09/28/2024 Sent to reference laboratory. Separate report to follow. Ortiz is now extubated and can engage in basic Diabetes Education. Ortiz speaks slowly and pauses before answering questions. Ortiz was not able to tell me how long he has had diabetes, only that it hasbeen a long time . He was able to tell me that he was ordered to be on both long and short acting insulin. He admits to not taking it because he was being bullheaded . He was not able to clearly articulate how he was able to check his blood sugar at home. He may at one point had a Dexcom CGM. He may at one point hador has a glucometer. I displayed empathy for his high level of diabetes distress and burnout. He was receptive to a conversation about the need for consistency in his diabetes self-care. Per chart review, Care Coordination mentions working to get patient set up with [facility]. Patient states that he is aware of this and is looking forward to this support and help. Verbally reviewed the following Diabetes Survival Skills with patient: A1C, Blood glucose targets, hypo and hyperglycemia, importance of home blood glucose monitoring, healthy eating, be active as recommended by health care providers, take insulin as directed Thank you for the referral. Will continue to round on patient as time allows to provide support, encouragement and education. JOSELINE TEAGUE RN Previous documentation copied below for reference. Inpatient Diabetes Education Rounded on Ortiz Gorman. Intubated, no family at bedside. Left folder with our contact information at the bedside. Lab Results Component Value Date LABA1C 09/28/2024 Sent to reference laboratory. Separate report to follow. LABA1C >16.5 (H) 09/28/2024 LABA1C 09/28/2024 Sent to reference laboratory. Separate report to follow. JOSELINE TEAGUE RN Note from Tuesday copied below for reference Diabetes Education Note Referral for diabetes education received per DKA orderset. Pt life flighted from [facility] to [facility] ER admitted to 3002: Diabetic ketoacidosis with coma associated with type 2 diabetes mellitus (HCC), Pneumonia of left lower lobe due to infectious organism, Altered mental status, unspecified altered mental status type, ABHIJIT (acute kidney injury) (HCC), Acute respiratory failure with hypoxia, H ypertensive encephalopathy, Non compliance w medication regimen. Adm BS 820, HgbA1c 12% pt intubated and placed on insulin drip. Will follow and provide DM education at a more appropriate time. * Aleja Wagoner, MARINE SERVICE MANAGER - LINE MANAGER - 10/02/2024 3:02 PM EST Images from the original note were not included. [employer] Land[employer] Manager Progress Note Date: 10/02/2024 Patient name: Ortiz Gorman Date of admission: 09/28/2024 2:35 PM Date of : 1975 PCP: Vincent Winters MD Subjective: Patient seen and examined. Denies chest pain or shortness of breath. Tele/vitals/labs reviewed . Was transferred from ICU today around 130 pm Medications: Scheduled Meds: losartan 25 mg Oral Daily insulin lispro 0-8 Units SubCUTAneous 4x Daily AC & HS miconazole Topical BID levoFLOXacin 500 mg Oral Every Other Day insulin glargine 25 Units SubCUTAneous QAM amLODIPine 5 mg Oral Daily carvedilol 25 mg Oral BID WC heparin (porcine) 5,000 Units SubCUTAneous 3 times per day sodium chloride flush 5-40 mL IntraVENous 2 times per day atorvastatin 40 mg Oral Nightly aspirin 81 mg Oral Daily Continuous Infusions: dextrose sodium chloride 10 mL/hr at 10/02/24 0721 dextrose 5 % and 0.45 % NaCl Stopped (09/29/24 1200) CBC: Recent Labs 09/30/24 0404 10/01/24 0541 10/02/24 0408 WBC 12.6* 7.3 8.0 HGB 8.4* 8.3* 8.4* PLT 186 180 180 BMP: Recent Labs 09/30/24 0404 10/01/24 0541 10/02/24 0408 NA 132* 139 141 K 4.3 4.0 3.8 CL 101 108* 110* CO2 19* 23 22 BUN 47* 46* 41* CREATININE 2.5* 2.3* 2.1* GLUCOSE 233* 180* 80 Hepatic: No results for input(s): AST , ALT , BILITOT , ALKPHOS in the last 72 hours. Invalid input(s): ALB Lab Results Component Value Date CHOL 177 10/01/2024 TRIG 213 (H) 10/01/2024 HDL 49 10/01/2024 LDL 85 10/01/2024 VLDL 43 (H) 10/01/2024 CHOLHDLRATIO 3.6 10/01/2024 INR: No results for input(s): INR in the last 72 hours. Objective: Vitals: BP 136/83 Pulse 73 Temp 97.8 F (36.6 C) (Oral) Resp 12 Ht 1.778 m (5' 10 ) Wt 79.1 kg (174 lb 6.1 oz) SpO2 100% BMI 25.02 kg/m General appearance: cooperative with exam HEENT: Normocephalic, atraumatic Neck: no carotid bruit, no JVD, trachea midline and thyroid not enlarged Lungs: clear to auscultation bilaterally Heart: regular rate and rhythm, S1, S2 normal, no murmur Abdomen: soft, bowel sounds normal Extremities: no edema or swelling EKG: Results for orders placed or performed during the hospital encounter of 09/28/24 EKG 12 Lead Result Value Ref Range Ventricular Rate 111 BPM Atrial Rate 111 BPM P-R Interval 166 ms QRS Duration 82 ms Q-T Interval 336 ms QTc Calculation (Bazett) 456 ms P [place] 79 degrees R [place] 68 degrees T [place] 68 degrees Narrative Sinus tachycardia Possible Left atrial enlargement Nonspecific ST abnormality Abnormal ECG No previous ECGs available Echo: Results for orders placed or performed during the hospital encounter of 10/27/21 Echocardiogram complete 2D with doppler with color Result Value Ref Range Left Ventricular Ejection Fraction 60 LVEF MODALITY ECHO Narrative [facility] Transthoracic Echocardiography Report (TTE) Patient Name SHERIF Date of Study 10/30/2021 ORTIZ Quezada Date of 1975 Gender Male Age 45 year(s) Race Room Number I307 Height: 71 inch, 180.34 cm Corporate ID [id number] Weight: 174 pounds, 78.9 kg # Patient Acct [id number] BSA: 1.99 m^2 BMI: 24.27 # kg/m^2 MR # [id number] Supervisor [employer] Raysa De La Torre Interpreting Physician Sammie Sher Fellow Referring Nurse Sarita Arzola CNP Practitioner Interpreting Referring Physician Fellow Type of Study TTE procedure:2D Echocardiogram, M-Mode, Doppler, Color Doppler. Procedure Date Date: 10/30/2021 Start: 02:34 PM Study Location: [facility] Indications:Tachycardia. History / Tech. Comments: Dx: tachycardia, infection Patient Status: Inpatient Height: 71 inches Weight: 174 pounds BSA: 1.99 m^2 BMI: 24.27 kg/m^2 CONCLUSIONS Summary Global left ventricular systolic function appears preserved with an estimated ejection fraction of >60%. The left ventricular cavity size is within normal limits and the left ventricular wall thickness is mildly increased. No definite specific wall motion abnormalities were identified. No significant valvular abnormalities. Evidence of mild diastolic dysfunction is seen. No prior studies were available for comparison. No evidence of infective endocarditis was identified in this study. Consider KEELEY if clinically indicated. Signature FINDINGS Left Atrium Left atrium is normal in size. Left Ventricle Global left ventricular systolic function appears preserved with an estimated ejection fraction of >60%. The left ventricular cavity size is within normal limits and the left ventricular wall thickness is mildly increased. No definite specific wall motion abnormalities were identified. Right Atrium Right atrium is normal in size. Right Ventricle Normal right ventricular size and function. Mitral Valve Normal mitral valve structure and function. Aortic Valve Normal aortic valve structure and function without stenosis or regurgitation. Tricuspid Valve Normal tricuspid valve structure and function. Pulmonic Valve The pulmonic valve is normal in structure. Pericardial Effusion No significant pericardial effusion is seen. Miscellaneous Evidence of mild diastolic dysfunction is seen. Normal aortic root dimension. M-mode / 2D Measurements & Calculations: LVIDd:4.42 cm(3.7 - 5.6 cm) Diastolic Volume:86.23 ml LVIDs:3.13 cm(2.2 - 4.0 cm) Systolic Volume:30.7 ml IVSd:1.06 cm(0.6 - 1.1 cm) Aortic Root:3.35 cm(2.0 - 3.7 cm) LVPWd:1.04 cm(0.6 - 1.1 cm) LA Dimension: 2.48 cm(1.9 - 4.0 cm) Fractional Shortenin.19 % LA volume/Index: 46.2 ml /23m^2 Calculated LVEF (%): 64.4 % AV Cusp Separation: 2.11 cm Mitral: Aortic Valve Area (P1/2-Time): 5.35 cm^2 Peak Velocity: 0.98 m/s Peak E-Wave: 0.66 m/s Mean Velocity: 0.74 m/s Peak A-Wave: 0.56 m/s Peak Gradient: 3.82 mmHg E/A Ratio: 1.18 Mean Gradient: 2.43 mmHg Peak Gradient: 1.77 mmHg Acceleration Time: 49.73 msec P1/2t: 41.13 msec AV VTI: 17.11 cm Diastology / Tissue Doppler Lateral Wall E' velocity:0.11 m/s Lateral Wall E/E':6.51 09/28/24 ECHO (TTE) COMPLETE (PRN CONTRAST/BUBBLE/STRAIN/3D) 09/29/2024 10:25 PM (Final) Interpretation Summary Left Ventricle: Normal left ventricular systolic function with a visually estimated EF of 60 - 65%.EF by 2D Simpsons Biplane is 65%. Left ventricle size is normal. Increased wall thickness. Findingsconsistent with moderate concentric hypertrophy. Normal wall motion. Global longitudinal strain is -16.7%. Normal diastolic function. Aortic Valve: Trileaflet valve. Mitral Valve: Mild regurgitation. Pericardium: Trivial pericardial effusion present. Image quality is adequate. Signed by: Kika Raymond DO on 09/29/2024 10:25 PM Hospital Problems Last Modified POA * (Principal) DKA, type 2, not at goal ([facility]) 09/28/2024 Yes NSTEMI (non-ST elevated myocardial infarction) ([facility]) 09/29/2024 Yes Acute metabolic encephalopathy 09/30/2024 Yes Acute hypoxemic respiratory failure 09/28/2024 Yes Abnormal finding on MRI of brain 10/01/2024 Yes Assessment: Elevated Troponins- likely type II MS HTN emergency- off cardene drip AMS-extubated on 10/01 ABHIJIT Sepsis 2/2 pneumonia DKA Normal TTE 01/2024 Plan: Hemodynamically stable - continue asa , statin Norvasc and coreg ECHO as above Volume management per nephrology Will plan for stress test in am if low risk then can be discharged from cardiac standpoint [place] Landscaping Manager [phone] * Felix Hernandez DO - 10/02/2024 1:04 PM EST Images from the original note were not included. [facility] Office: [phone] Andrew Hernandez DO, Ernie Escalante DO, Hal Atwood DO, Carlos Trejo DO, Ora Sharp MD, Dawna Chaney MD, Bassam Sher MD, Rhoda Luna MD, Lc Ibarra MD, Elyssa Yee MD, Jeimy Mireles MD, Franck Solis DO, Jelena Damno MD, Rashid Mathew MD, Felix Hernandez DO, Suzan Abbasi MD, Kulwinder Polk DO, Adriana Abdalla MD, Trino Gilliland MD, Peggy Cook MD, Clovis Mares MD, Db Lindquist MD, Judy Alvarez MD, Anne Quan MD, Roseline Forrest MD, Denilson Oliveira MD, Vilma Steel MD, Ludmila Best DO, Bradly Nassar MD, Sarita Mcmullen CNP, Linda Lynch CNP, Ludmila Aguilera CNP, Lina Morgan DNP, Nini Raya CNP, Giuliana Mae CNP, Myra Almodovar CNP, Suzy Dooley, PARKER, Gavoita Rich, GLADISC, Carley So, PASulaimanC, Shelly Rainey,PARKER, Manny Laura CNP, Yenny Motta, PARKER, Claudine Parrish CNP, Maamedenise Carter CNP, Cindy Stives, CNP [facility] IN-PATIENT SERVICE [facility] Progress Note 10/02/2024 1:05 PM Name: Ortiz Gorman Acct: [id number] Room: 0165/0165-01 Day: 4 Admit Date: 09/28/2024 2:35 PM PCP: Vincent Winters MD Code Status: Full Code Subjective: Patient seen in follow-up for diabetic ketoacidosis, hypertensive urgency, respiratory failure. Patient states I am wiped out Chart reviewed, this 48-year-old male was admitted to the hospital with DKA and acute hypoxic respiratory failure. The patient did require mechanical ventilation and has been successfully extubated. Concerns for pneumonia existed and he has been maintained on Zosyn since admission. The patient's breathing has improved and his DKA treated accordingly. He is presently on Lantus and sliding scale. The patient had significant elevation of his blood pressure and antihypertensive medications have been initiated. He is presently been started on Cozaar, Coreg, Norvasc. Cardiology was consulted due toelevated cardiac enzymes. Echocardiogram demonstrated preserved ejection fraction and recommendations are for stress test at a later date. He does have an element of acute on kidney failure secondaryto above which is improving since admission. At this point in time his biggest complaint is that ofgeneralized weakness secondary to his hospitalization. We will ask PT/OT to evaluate the patient for recommendations regarding safe disposition. The patient denies any questions or concerns at this point in time. Medications: Allergies: No Known Allergies Current Meds: Scheduled Meds: losartan 25 mg Oral Daily insulin lispro 0-8 Units SubCUTAneous 4x Daily AC & HS insulin glargine 25 Units SubCUTAneous QAM amLODIPine 5 mg Oral Daily carvedilol 25 mg Oral BID WC heparin (porcine) 5,000 Units SubCUTAneous 3 times per day sodium chloride flush 5-40 mL IntraVENous 2 times per day piperacillin-tazobactam 3,375 mg IntraVENous Q8H atorvastatin 40 mg Oral Nightly aspirin 81 mg Oral Daily Continuous Infusions: dextrose sodium chloride 10 mL/hr at 10/02/24 0721 dextrose 5 % and 0.45 % NaCl Stopped (09/29/24 1200) PRN Meds: glucose, dextrose bolus OR dextrose bolus, glucagon (rDNA), dextrose, hydrALAZINE, sodium chloride flush, sodium chloride, potassium chloride OR potassium chloride, magnesium sulfate, ondansetron OR ondansetron, polyethylene glycol, acetaminophen OR acetaminophen, dextrose bolus OR dextrose bolus, potassium chloride, magnesium sulfate, sodium phosphate 15 mmol in sodium chloride 0.9 % 250 mL IVPB, dextrose 5 % and 0.45 % NaCl, labetalol Data: Vitals: BP 131/79 Pulse 71 Temp 97.6 F (36.4 C) (Oral) Resp 24 Ht 1.778 m (5' 10 ) Wt 79.1 kg (174 lb 6.1 oz) SpO2 100% BMI 25.02 kg/m Temp (24hrs), Av F (36.7 C), Min:97.6 F (36.4 C), Max:98.6 F (37 C) Recent Labs 10/01/24 1938 10/01/24200610/02/24 0619 10/02/24 1100 POCGLU 129* 126* 81 175* I/O (24Hr): Intake/Output Summary (Last 24 hours) at 10/02/2024 1305 Last data filed at 10/02/2024 1130 Gross per 24 hour Intake 1666.81 ml Output 975 ml Net 691.81 ml Labs: Hematology: Recent Labs 09/30/24 0404 10/01/24 0541 10/02/24 0408 WBC 12.6* 7.3 8.0 RBC 2.91* 2.89* 2.94* HGB 8.4* 8.3* 8.4* HCT 26.2* 26.0* 25.8* MCV 90.0 90.0 87.8 MCH 28.9 28.7 28.6 MCHC 32.1 31.9 32.6 RDW 13.3 13.3 13.4 PLT 186 180 180 MPV 10.9 10.9 10.6 Chemistry: Recent Labs 09/30/24 0404 09/30/24 1001 10/01/24 0541 10/01/24 0806 10/02/24 0408 NA 132* -- 139 -- 141 K 4.3 -- 4.0 -- 3.8 CL 101 -- 108* -- 110* CO2 19* -- 23 -- 22 GLUCOSE 233* -- 180* -- 80 BUN 47* -- 46* -- 41* CREATININE 2.5* -- 2.3* -- 2.1* ANIONGAP 12 -- 8* -- 9 LABGLOM 31* -- 34* -- 38* CALCIUM 7.8* -- 8.1* -- 8.0* CAION -- 1.20 -- 1.13 -- Recent Labs 10/01/24 0541 10/01/24 0729 10/01/24 1101 10/01/24 1710 10/01/24 1938 10/01/24 2007 10/02/24 0619 10/02/24 1100 CHOL 177 -- -- -- -- -- -- -- HDL 49 -- -- -- -- -- -- -- CHOLHDLRATIO 3.6 -- -- -- -- -- -- -- TRIG 213* -- -- -- -- -- -- -- VLDL 43* -- -- -- -- -- -- -- POCGLU -- < > 142* 125* 129* 126* 81 175* < > = values in this interval not displayed. ABG: Lab Results Component Value Date/Time POCPH 7.480 10/01/2024 04:26 AM PHART 7.385 09/28/2024 09:42 AM POCPCO2 33.7 10/01/2024 04:26 AM [id number] 35.2 09/28/2024 09:42 AM POCPO2 143.0 10/01/2024 04:26 AM PO2ART 72.2 09/28/2024 09:42 AM POCHCO3 25.1 10/01/2024 04:26 AM [id number] 20.6 09/28/2024 09:42 AM NBEA 3.7 09/28/2024 09:42 AM PBEA 1.5 10/01/2024 04:26 AM [id number] 99.4 10/01/2024 04:26 AM [id number] 94.5 09/28/2024 09:42 AM FIO2 30.0 10/01/2024 04:26 AM Lab Results Component Value Date/Time SPECIAL Site: Respiratory specimen 09/28/2024 08:54 PM Lab Results Component Value Date/Time CULTURE NORMAL RESPIRATORY AYDEN LIGHT GROWTH 09/28/2024 08:54 PM Radiology: MRI BRAIN WO CONTRAST Result Date: 09/30/2024 1. Abnormal signal intensity within the cortex and subcortical white matter of the right parietal lobe, right temporal lobe and right occipital lobe in a distribution similar to the findings on the previous exam from 01/22/2024. Differential considerations include an encephalitis, postictal edema or a symmetric PRES (an uncommon presentation). 2. Punctate acute infarct within the cortex of the rightparietal lobe. The findings were sent to the Radiology Results Communication Center at 1:34 pm on 09/30/2024 to be communicated to a licensed caregiver. US RENAL COMPLETE Result Date: 09/29/2024 1. No evidence of hydronephrosis. 2. Mildly hyperechoic kidneys bilaterally suggesting medical renal disease. 3. Unremarkable appearance of the bladder. A Lin catheter is in place. XR ABDOMEN FOR NG/OG/NE TUBE PLACEMENT Result Date: 09/28/2024 Enteric tube appears to be in appropriate position. XR CHEST PORTABLE Result Date: 09/28/2024 No acute cardiopulmonary process. Endotracheal tube with the tip in the midtrachea. CT CHEST ABDOMEN PELVIS W CONTRAST Additional Contrast? None Result Date: 09/28/2024 Few ground-glass opacities laterally in the left lung concerning for an infectious process. Trace amount of fluid and potential inflammation adjacent to the pancreas concerning for pancreatitis. CTA HEAD NECK W CONTRAST Result Date: 09/28/2024 No significant stenosis or evidence for large vessel occlusion. Few partially visualized ground-glass opacities in the left lung concerning for pneumonia. CT HEAD WO CONTRAST Result Date: 09/28/2024 No acute intracranial abnormality. Remote right parietal lobe infarct. Physical Examination: General appearance: alert, cooperative and no distress Mental Status: oriented to person, place and time and normal affect Lungs: clear to auscultation bilaterally, normal effort Heart: regular rate and rhythm, no murmur Abdomen: soft, nontender, nondistended, normal bowel sounds, no masses, hepatomegaly, splenomegaly Extremities: no edema, redness, tenderness in the calves Skin: Rash in the folds of skin noted, patient has abrasions to the lower extremities noted Assessment: Hospital Problems Last Modified POA * (Principal) DKA, type 2, not at goal ([facility]) 09/28/2024 Yes NSTEMI (non-ST elevated myocardial infarction) ([facility]) 09/29/2024 Yes Acute metabolic encephalopathy 09/30/2024 Yes Acute hypoxemic respiratory failure 09/28/2024 Yes Abnormal finding on MRI of brain 10/01/2024 Yes Plan: Diabetic ketoacidosis/diabetes mellitus DKA resolved Continue Lantus and sliding scale Outpatient follow-up with certified tower 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 Essential hypertension Medications adjusted Monitor and titrate accordingly Demand ischemia/elevated enzymes Stress testing at the discretion of cardiology No objection to outpatient stress testing if recommended per cardiology Pneumonia Transition to Levaquin for 3 more days DC Zosyn Acute on chronic kidney failure Avoid nephrotoxic agents Renally dose Levaquin Improving Weakness/debility PT/OT Medical Decision Making: Megan Hernandez DO 10/02/2024 1:05 PM * Ludmila Rajput MD - 10/02/2024 10:31 AM EST Critical care team - Resident sign-out to medicine service Date and time: 10/02/2024 10:32 AM Patient's name: Ortiz Gorman Patient's account/billing number: [id number] Patient's Date of : 1975 Age: 48 y.o. Date of Admission: 09/28/2024 2:35 PM Length of stay during current admission: 4 Primary Care Physician: Vincent Winters MD Code Status: Full Code Mode of physician to physician communication: [x] Via telephone [] In person Date and time of sign-out: 10/02/2024 10:32 AM Accepting Medicine team: Intermed Accepting team's attending: Dr. Hernandez Patient's current ICU Bed: 3002 Patient's assigned bed on floor: 165 [x] Med-Surg Monitored [] Step-down [] Psychiatry ICU [] Psych floor Reason for ICU admission: AMS, Cardene gtt ICU course summary: Admitted to ICU for AMS, Cardene gtt and DKA management. Intubated on 09/28 for airway protection. BG improved on home lantus and HDSSI. TTE unremarkable. Stress test when OOICU. Amlodipine and losartan added. Tolerating PO and HDS. Procedures during patient's ICU stay: Intubation Current Vitals: BP 122/64 Pulse 76 Temp 97.6 F (36.4 C) (Oral) Resp 11 Ht 1.778 m (5' 10 ) Wt 83.2 kg (183 lb 6.8 oz) SpO2 100% BMI 26.32 kg/m Cultures: Blood cultures: [] None drawn [] Negative [x] Positive (Details: Only one for eneterrococcus avium) Urine Culture: [] None drawn [x] Negative [] Positive (Details: ) Sputum Culture: [] None drawn [x] Negative [] Positive (Details: ) Endotracheal aspirate: [] None drawn [] Negative [x] Positive (Details: G+ cocci pairs) Consults: 1. Cardiology 2. Neurology 3. Nephrology Assessment: Patient Active Problem List Diagnosis Date Noted NSTEMI (non-ST elevated myocardial infarction) ([facility]) 09/29/2024 Abnormal finding on MRI of brain 10/01/2024 DKA, type 2, not at goal ([facility]) 09/28/2024 Acute hypoxemic respiratory failure 09/28/2024 Central apnea 01/22/2024 Acute metabolic encephalopathy 01/19/2024 Hypertensive emergency 01/19/2024 Fever 01/19/2024 Altered mental status 01/19/2024 Encephalopathy acute 01/19/2024 Hypertensive urgency 01/19/2024 Lactic acidosis 01/19/2024 Bacteremia due to Staphylococcus aureus Sinus tachycardia Mild malnutrition ([facility]) 10/28/2021 Diabetic acidosis without coma ([facility]) 10/27/2021 Additional assessment: Neuro: cont asa, lipitor CV: Amlodipine 5mg daily, Coreg 25mg daily, Losartan 25mg daily GI: DM diet ID: Zosyn for pneumonia Endo: Lantus 25u AM, MDSSI DVT ppx: Hep 5k TID Recommended Follow-up: Cardiology for stress test Nephrology for ABHIJIT, though resolving Neuro: consider 30d director cardiac at [facility] 4wks Above mentioned assessment and plan was discussed by me with the admitting medicine resident. The medicine team assigned to the patient by medicine admitting resident will be following up the patientfrom now onwards on the floor. Ludmila Rajput MD, M.D. Critical care resident Department of Internal Medicine/ Critical care [facility]) 10/02/2024, 10:32 AM * Chung Noel MD - 10/02/2024 9:04 AM EST NEPHROLOGY PROGRESS NOTE ASSESSMENT Acute kidney injury nonoliguric secondary to ischemic ATN from hypertensive emergency/osmotic diuresis related to DKA complicated further by contrast exposure -improving creatinine peaked to 2.5 improving Chronic kidney disease stage III secondary to diabetic nephrosclerosis with baseline creatinine of 1.4-1.6 Nonnephrotic range proteinuria with last UPC 2.5 Diabetic ketoacidosis. Resolved Hypertensive emergency manifesting as ABHIJIT/PRESS Left lower lobe pneumonia Acute hypoxic respiratory failure secondary to #4/#5/#6 with pain status post extubation PLAN Add ARB Abx as per eGFR Will follow SUBJECTIVE Hospitalized when found down/altered mental sensorium with initial assessment disclosing hypertensive emergency with elevated creatinine and diabetic ketoacidosis along with left lower lobe pneumonia. Currently being managed with decubital call as well as antibiotics which she has shown good response. S/p extubation.Tolerating PO BP suboptimal controlled Decent diuresis and renal function continues to improve. No acute hemodynamic issues overnight OBJECTIVE Vitals: 10/02/24 0730 10/02/24 0800 10/02/24 0830 10/02/24 0900 BP: (!) 130/90 (!) 147/84 (!) 172/89 Pulse: 69 72 70 74 Resp: 16 Temp: TempSrc: SpO2: 98% 100% 100% Weight: Height: 24HR INTAKE/OUTPUT: Intake/Output Summary (Last 24 hours) at 10/02/2024 0904 Last data filed at 10/02/2024 0721 Gross per 24 hour Intake 2014.21 ml Output 930 ml Net 1084.21 ml General appearance:Awake, alert, in no acute distress HEENT: PERRLA Respiratory::vesicular breath sounds,no wheeze/crackles Cardiovascular:S1 S2 normal,no gallop or organic murmur. Abdomen:Non tender/non distended.Bowel sounds present Extremities: No Cyanosis or Clubbing,Lower extremity edema Neurological:Alert and oriented.No abnormalities of mood, affect, memory, mentation, or behavior are noted MEDICATIONS Scheduled Meds: losartan 25 mg Oral Daily insulin glargine 25 Units SubCUTAneous QAM amLODIPine 5 mg Oral Daily insulin lispro 0-16 Units SubCUTAneous 4x Daily AC & HS carvedilol 25 mg Oral BID WC heparin (porcine) 5,000 Units SubCUTAneous 3 times per day sodium chloride flush 5-40 mL IntraVENous 2 times per day piperacillin-tazobactam 3,375 mg IntraVENous Q8H atorvastatin 40 mg Oral Nightly aspirin 81 mg Oral Daily Continuous Infusions: dextrose sodium chloride 10 mL/hr at 10/02/24 0721 dextrose 5 % and 0.45 % NaCl Stopped (09/29/24 1200) PRN Meds: glucose, dextrose bolus OR dextrose bolus, glucagon (rDNA), dextrose, hydrALAZINE, sodium chloride flush, sodium chloride, potassium chloride OR potassium chloride, magnesium sulfate, ondansetron OR ondansetron, polyethylene glycol, acetaminophen OR acetaminophen, dextrose bolus OR dextrose bolus, potassium chloride, magnesium sulfate, sodium phosphate 15 mmol in sodium chloride 0.9 % 250 mL IVPB, dextrose 5 % and 0.45 % NaCl, labetalol Home Meds: Medications Prior to Admission: insulin lispro (HUMALOG) 100 UNIT/ML SOLN injection vial, Inject 0-16 Units into the skin 3 times daily (with meals) insulin glargine (LANTUS SOLOSTAR) 100 UNIT/ML injection pen, Inject 20 Units into the skin nightly carvedilol (COREG) 12.5 MG tablet, Take 1 tablet by mouth 2 times daily (with meals) NIFEdipine (PROCARDIA XL) 30 MG extended release tablet, Take 1 tablet by mouth daily folic acid (FOLVITE) 1 MG tablet, Take 1 tablet by mouth daily INVESTIGATIONS Last 3 CMP: Recent Labs 09/30/24 0404 10/01/24 0541 10/02/24 0408 NA 132* 139 141 K 4.3 4.0 3.8 CL 101 108* 110* CO2 19* 23 22 BUN 47* 46* 41* CREATININE 2.5* 2.3* 2.1* CALCIUM 7.8* 8.1* 8.0* Last 3 CBC: Recent Labs 09/30/24 0404 10/01/24 0541 10/02/24 0408 WBC 12.6* 7.3 8.0 RBC 2.91* 2.89* 2.94* HGB 8.4* 8.3* 8.4* HCT 26.2* 26.0* 25.8* MCV 90.0 90.0 87.8 MCH 28.9 28.7 28.6 MCHC 32.1 31.9 32.6 RDW 13.3 13.3 13.4 PLT 186 180 180 MPV 10.9 10.9 10.6 Please do not hesitate to call with questions This note is created with the assistance of a speech-recognition program. While intending to generate a document that actually reflects the content of the visit, no guarantees can be provided that every mistake has been identified and corrected by editing Chung Noel MD MD, MRCP (), FACP 10/02/2024 9:04 AM [facility] * Marce Restrepo, MARINE SERVICE MANAGER - TAKE AWAY MAN - 10/02/2024 9:00 AM EST NEUROLOGY INPATIENT PROGRESS NOTE 10/02/2024 Current Exam: Chart reviewed. Discussed with RN. Patient was extubated yesterday. He is oriented but gives off topic responses at times to questions. He denies any headache or focal weakness. No seizure activity. 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 Brief History: Ortiz Gorman is a 48 y.o. male with H/O DM, who was admitted on 09/28/2024 after being found downat home, reportedly covered in feces, confused, and slurring his words. He was taken to [facility] where he was found to have significantly elevated SBP greater than 250s, glucose was 820. He was also found to have ABHIJIT, elevated troponins, lactic acidosis, and ABG consistent with hypoxemia. Hedoes have a history of medication noncompliance. He was intubated for airway protection, sedated, and transferred to [facility] to the ICU. MRI brain was done showing a similar abnormality as compared to January 2024 with density/diffusion restriction in the right parietal region. Patient was seen by our team in January 2024 after presenting with a headache and significant hypertension. MRI done at that time showed hyperintensity in the perimesencephalic cistern region with bilateral cerebral convexities which could be related to early meningitis versus remote SAH. CSF studiesat that time are noninfectious and with no evidence of hemorrhage. He eventually improved and was extubated with repeat imaging done during that stay showing improvement in the hyperintense regions although showed a new diffusion restriction in the right parietal lobe which could be related to a stroke. No current facility-administered medications on file prior to encounter. Current Outpatient Medications on File Prior to Encounter Medication Sig Dispense Refill insulin lispro (HUMALOG) 100 UNIT/ML SOLN injection vial Inject 0-16 Units into the skin 3 times daily (with meals) 30 mL 1 insulin glargine (LANTUS SOLOSTAR) 100 UNIT/ML injection pen Inject 20 Units into the skin nightly 5 Adjustable Dose Pre-filled Pen Syringe 3 carvedilol (COREG) 12.5 MG tablet Take 1 tablet by mouth 2 times daily (with meals) 60 tablet 3 NIFEdipine (PROCARDIA XL) 30 MG extended release tablet Take 1 tablet by mouth daily 30 tablet 3 folic acid (FOLVITE) 1 MG tablet Take 1 tablet by mouth daily 30 tablet 3 Allergies: Ortiz Gorman has No Known Allergies. Past Medical History: Diagnosis Date Diabetes mellitus (HCC) Past Surgical History: Procedure Laterality Date APPENDECTOMY LEG SURGERY Right 10/30/2021 right intrarticular hip aspiration under fluro performed by Vincent Kuhn DO at [facility] OR Social History: Ortiz Gorman reports that he has never smoked. His smokeless tobacco use includeschew. He reports that he does not currently use alcohol. He reports that he does not use drugs. No family history on file. Objective: BP (!) 141/75 Pulse 67 Temp 98.2 F (36.8 C) (Oral) Resp 14 Ht 1.778 m (5' 10 ) Wt 83.2 kg(183 lb 6.8 oz) SpO2 100% BMI 26.32 kg/m Blood pressure range: Systolic (24hrs), Av , Min:106 , Max:194 ; Diastolic (24hrs), Av, Min:40, Max:100 ROS: Constitutional Negative for fever and chills HEENT Negative for ear discharge, ear pain, nosebleed. L visual field cut Eyes Negative for photophobia, pain and discharge [...] AT NECK Supple MENTAL STATUS: Alert, oriented, some confusion noted, normal speech, normal language, no hallucination or delusion. Intact naming. Easily off topic during assessment. Can spell WORLD forward but not backward. Cannot add cents. CRANIAL NERVES: II - L visual field cut III,IV, - EOMs full, no afferent defect, no PRESTON, no ptosis V - Normal facial sensation VII - Normal facial symmetry VIII - Intact hearing IX,X - Symmetrical palate XI - Symmetrical shoulder shrug XII - Midline tongue, no atrophy MOTOR FUNCTION: Lifts all limbs easily antigravity with normal bulk, normal tone and no involuntarymovements, no tremor SENSORY FUNCTION: Normal touch, normal pin CEREBELLAR FUNCTION: No tremor REFLEX FUNCTION: Symmetric, no perverted reflex, no Babinski sign STATION and GAIT Not tested Data: Lab Results: CBC: Recent Labs 09/30/24 0404 10/01/24 0541 10/02/24 0408 WBC 12.6* 7.3 8.0 HGB 8.4* 8.3* 8.4* PLT 186 180 180 BMP: Recent Labs 09/30/24 0404 10/01/24 0541 10/02/24 0408 NA 132* 139 141 K 4.3 4.0 3.8 CL 101 108* 110* CO2 19* 23 22 BUN 47* 46* 41* CREATININE 2.5* 2.3* 2.1* GLUCOSE 233* 180* 80 Lab Results Component Value Date CHOL 177 10/01/2024 HDL 49 10/01/2024 TRIG 213 (H) 10/01/2024 ALT 24 09/28/2024 AST 29 09/28/2024 TSH 0.58 01/19/2024 INR 1.1 09/28/2024 LABA1C 09/28/2024 Sent to reference laboratory. Separate report to follow. LABA1C >16.5 (H) 09/28/2024 MG 2.2 09/29/2024 PHOS 4.5 09/29/2024 Diagnostic data reviewed: CT HEAD (09/28/24) - No acute intracranial abnormality. Remote right parietal lobe infarct. CTA HEAD AND NECK (09/28/24) - No significant stenosis or evidence for large vessel occlusion. Few partially visualized ground-glass opacities in the left lung concerning for pneumonia. BRAIN MRI (09/30/24) - 1. Abnormal signal intensity within the cortex and subcortical white matter of the right parietal lobe, right temporal lobe and right occipital lobe in a distribution similar to the findings on the previous exam from 01/22/2024. Differential considerations include an encephalitis, postictal edema or asymmetric PRES (an uncommon presentation). 2. Punctate acute infarct within the cortex of the right parietal lobe. EEG (10/09/24) - Abnormal awake EEG. The slowing mentioned above suggests moderate non specific encephalopathy. No epileptiform discharges were identified. ECHO (10/09/24) - Left Ventricle: Normal left ventricular systolic function with a visually estimated EF of 60 - 65%.EF by 2D Simpsons Biplane is 65%. Left ventricle size is normal. Increased wall thickness. Findingsconsistent with moderate concentric hypertrophy. Normal wall motion. Global longitudinal strain is -16.7%. Normal diastolic function. Aortic Valve: Trileaflet valve. Mitral Valve: Mild regurgitation. Pericardium: Trivial pericardial effusion present. Image quality is adequate. Impression: -Acute metabolic encephalopathy in the setting of DKA, hypertensive urgency, improving -Abnormal MRI brain with hyperintensity and diffusion restriction in the right parietal region -Punctate infarct in the right parietal lobe -History of medication non compliance Plan: -MRI brain reviewed; FLAIR findings are similar to prior back in January 2024. These findings are nonspecific but appear to be improved from 02/07; prior CSF workup essentially unrevealing, EEG with nothing epileptiform. The possibility remains of this being post ictal changes however even in the setting of seizure prior to admission this would have been a provoked event. Will hold off on AED at this time -Recommend repeat MRI brain in 4 weeks -Recommend 30 day Holter on discharge -There is a punctate area of infarct, in the setting of severe hyperglycemia and hypertension. Hgb A1C >16.5, LDL 85 -Patient needs stricter control of stroke risk factors -He continues on ASA and statin daily -Continued management of metabolic disturbances as per primary team -He will need outpatient follow up in 6-8 weeks. We will sign off. Please note that this note was generated using a voice recognition dictation software. Although every effort was made to ensure the accuracy of this automated harpsichord maker, some errors in harpsichord maker may have occurred. Associated attestation - Mary Lou Tom DO - 10/02/2024 5:21 PM EST Attending Physician Statement: I have discussed the care of Ortiz Gorman, including pertinent history and exam findings with theAPP. I have seen and examined the patient and the swartz elements of the encounter have been performedby me. I have reviewed medications, clinical laboratory, imaging and other diagnostic tests with the PAT. I agree with the assessment, plan and orders as documented by the PAT with changes made to the note as needed. In addition: Much more alert and attentive. Fully oriented. Essentially at baseline. He is motivated to improve compliance with medications and follow up. Continue asa and statin. Recommend 30 day director cardiac at me. Can consider LOOP recorder as outpatient if no afib captured. Will also repeat MRI brain w/wo in 4 weeks. Needs close neuro follow up outpatient. Given ongoing neurological improvement, will defer further workup at this time. Will sign off for now. Please call if any further questions Mary Lou Tom DO 10/02/2024 5:16 PM * Ludmila Rajput MD - 10/02/2024 6:50 AM EST Images from the original note were not included. INTENSIVE CARE UNIT Resident Physician Progress Note Patient - Ortiz Gorman Date of Admission - 09/28/2024 2:35 PM Date of Evaluation - 10/02/2024 Room and Bed Number - 3002/3002-01 Hospital Day - 4 SUBJECTIVE: History of Presenting Illness Chief complaint: Found down, altered mental status History was obtained from chart review and unobtainable from patient due to being intubated & sedated. Ortiz Gorman is a 48 y.o. year male with a history of diabetes, hypertension who presents as a [facility]. He was brought to the ED department after being found by his family in the bathroom covered in feces/urine and confused. As per the family, he's not compliant with his diab etes and blood pressure medications. NIH score in the ED was 6. His blood pressure was 225/[address] head showed a remote parietal infarct. He was started on a cardene drip, and subsequently intubated in the ED due to worsening mentation. His blood sugar was 820, beta-hydroxybutyrate 2.64 and ABG showed pH of 7.38 with HCO3 of 20.6. CT chest also revealed ground glass opacities in the left lung concerning for pneumonia As per chart review, patient was admitted in January with a similar presentation of slurred speech, facial drop and was admitted to the ICU but ended leaving AMA. 10/01: extubated OVERNIGHT EVENTS: NAEON TODAY: Patient seen today, sitting up in bed, speaking full sentences, asking why this keeps happening to him. Denies any concerning symptoms. BG normal and well controlled overnight. Zosyn to end 10/04. Neuro following for stroke concern,OP recs. Nephro on for ABHIJIT. Voiding spontaneously. Plan to transferto [place] today OBJECTIVE: VITAL SIGNS: BP (!) 140/75 Pulse 65 Temp 98.2 F (36.8 C) (Oral) Resp 10 Ht 1.778 m (5' 10 ) Wt 83.2 kg(183 lb 6.8 oz) SpO2 97% BMI 26.32 kg/m Tmax over 24 hours: Temp (24hrs), Av.1 F (36.7 C), Min:97.6 F (36.4 C), Max:98.6 F (37 C) Patient Vitals for the past 8 hrs: BP Temp Temp src Pulse Resp SpO2 Weight 10/02/24 0541 -- -- -- -- -- -- 83.2 kg (183 lb 6.8 oz) 10/02/24 0445 -- -- -- 65 10 97 % -- 10/02/24 0430 (!) 140/75 -- -- 64 19 99 % -- 10/02/24 0415 -- -- -- 70 23 100 % -- 10/02/24 0400 (!) 145/76 98.2 F (36.8 C) Oral 70 18 98 % -- 10/02/24 0345 -- -- -- 65 15 99 % -- 10/02/24 0330 139/69 -- -- 73 18 98 % -- 10/02/24 0315 -- -- -- 75 16 100 % -- 10/02/24 0300 (!) 172/90 -- -- 70 12 100 % -- 10/02/24 0245 -- -- -- 81 16 100 % -- 10/02/24 0230 (!) 148/84 -- -- 72 19 100 % -- 10/02/24 0215 -- -- -- 71 (!) 9 98 % -- 10/02/24 0200 (!) 144/75 -- -- 70 (!) 9 98 % -- 10/02/24 0145 -- -- -- 71 19 99 % -- 10/02/24 0130 135/65 -- -- 75 18 99 % -- 10/02/24 0115 -- -- -- 78 11 99 % -- 10/02/24 0100 (!) 146/78 -- -- 78 (!) 8 98 % -- 10/02/24 0045 -- -- -- 81 25 100 % -- 10/02/24 0030 (!) 158/78 -- -- 77 18 98 % -- 10/02/24 0015 (!) 172/84 -- -- 79 17 98 % -- 10/02/24 0000 (!) 172/87 97.9 F (36.6 C) Oral 70 18 99 % -- 10/01/24 2345 -- -- -- 86 18 100 % -- 10/01/24 2330 (!) 120/40 -- -- 78 20 98 % -- 10/01/24 2315 (!) 146/61 -- -- 80 19 99 % -- 10/01/24 2300 -- -- -- 76 14 98 % -- Intake/Output Summary (Last 24 hours) at 10/02/2024 0652 Last data filed at 10/02/2024 0458 Gross per 24 hour Intake 2217.19 ml Output 1205 ml Net 1012.19 ml Date 10/02/24 0000 - 10/02/24 2359 Shift 2204-8080 6910-2669 1630-2268 24 Hour Total INTAKE P.O.(mL/kg/hr) 500 500 I.V.(mL/kg) 35.5(0.4) 35.5(0.4) IV Piggyback(mL/kg) 49.7(0.6) 49.7(0.6) Shift Total(mL/kg) 585.2(7) 585.2(7) OUTPUT Urine(mL/kg/hr) 450 450 Shift Total(mL/kg) 450(5.4) 450(5.4) Weight (kg) 83.2 83.2 83.2 83.2 Wt Readings from Last 3 Encounters: 10/02/24 83.2 kg (183 lb 6.8 oz) 09/28/24 88 kg (194 lb 0.1 oz) 01/21/24 88.3 kg (194 lb 10.7 oz) Body mass index is 26.32 kg/m . PHYSICAL EXAM: GEN: Extubated, answering appropriately EYES: pupils equal, round, and reactive to light HEENT: Normocephalic, without obvious abnormality LUNGS: CTABL CV: regular rate and rhythm, normal S1 and S2, no S3 or S4, and no murmur noted ABDOMEN: No scars, soft, non-distended, non-tender, no masses palpated NEURO:: Moving all 4 extremities, no sensory deficits EXTREMITIES: No pedal or leg edema, no calf swelling, no erythema, distal pulses intact MEDICATIONS: Scheduled Meds: insulin glargine 25 Units SubCUTAneous QAM amLODIPine 5 mg Oral Daily insulin lispro 0-16 Units SubCUTAneous 4x Daily AC & HS carvedilol 25 mg Oral BID WC heparin (porcine) 5,000 Units SubCUTAneous 3 times per day sodium chloride flush 5-40 mL IntraVENous 2 times per day piperacillin-tazobactam 3,375 mg IntraVENous Q8H atorvastatin 40 mg Oral Nightly aspirin 81 mg Oral Daily Continuous Infusions: dextrose sodium chloride 10 mL/hr at 10/02/24 0458 dextrose 5 % and 0.45 % NaCl Stopped (09/29/24 1200) PRN Meds: glucose, 4 tablet, PRN dextrose bolus, 125 mL, PRN Or dextrose bolus, 250 mL, PRN glucagon (rDNA), 1 mg, PRN dextrose, , Continuous PRN hydrALAZINE, 10 mg, Q6H PRN sodium chloride flush, 5-40 mL, PRN sodium chloride, , PRN potassium chloride, 20 mEq, PRN Or potassium chloride, 10 mEq, PRN magnesium sulfate, 2,000 mg, PRN ondansetron, 4 mg, Q8H PRN Or ondansetron, 4 mg, Q6H PRN polyethylene glycol, 17 g, Daily PRN acetaminophen, 650 mg, Q6H PRN Or acetaminophen, 650 mg, Q6H PRN dextrose bolus, 125 mL, PRN Or dextrose bolus, 250 mL, PRN potassium chloride, 10 mEq, PRN magnesium sulfate, 2,000 mg, PRN sodium phosphate 15 mmol in sodium chloride 0.9 % 250 mL IVPB, 15 mmol, PRN dextrose 5 % and 0.45 % NaCl, , Continuous PRN labetalol, 5 mg, Q6H PRN SUPPORT DEVICES: [] Ventilator [] BIPAP [] Nasal Cannula [x] Room Air ABGs: Arterial Blood Gas result: pH 7.48 CO2 34, pO2 143, bicarb 25 Lab Results Component Value Date/Time PHART 7.385 09/28/2024 09:42 AM [id number] 35.2 09/28/2024 09:42 AM PO2ART 72.2 09/28/2024 09:42 AM [id number] 20.6 09/28/2024 09:42 AM [id number] 94.5 09/28/2024 09:42 AM FIO2 30.0 10/01/2024 04:26 AM DATA: Complete Blood Count: Recent Labs 09/30/24 0404 10/01/24 0541 10/02/24 0408 WBC 12.6* 7.3 8.0 RBC 2.91* 2.89* 2.94* HGB 8.4* 8.3* 8.4* HCT 26.2* 26.0* 25.8* MCV 90.0 90.0 87.8 MCH 28.9 28.7 28.6 MCHC 32.1 31.9 32.6 RDW 13.3 13.3 13.4 PLT 186 180 180 MPV 10.9 10.9 10.6 Last 3 Blood Glucose: Recent Labs 09/29/24 0654 09/29/24 1150 09/30/24 0404 10/01/24 0541 10/02/24 0408 GLUCOSE 588* 258* 233* 180* 80 PT/INR: Lab Results Component Value Date/Time PROTIME 14.3 09/28/2024 06:24 PM INR 1.1 09/28/2024 06:24 PM PTT: Lab Results Component Value Date/Time APTT 20.2 09/28/2024 06:24 PM Comprehensive Metabolic Profile: Recent Labs 09/30/24 0404 10/01/24 0541 10/02/24 0408 NA 132* 139 141 K 4.3 4.0 3.8 CL 101 108* 110* CO2 19* 23 22 BUN 47* 46* 41* CREATININE 2.5* 2.3* 2.1* GLUCOSE 233* 180* 80 CALCIUM 7.8* 8.1* 8.0* Magnesium: Lab Results Component Value Date/Time MG 2.2 09/29/2024 11:50 AM MG 1.6 09/29/2024 06:54 AM MG 1.8 09/29/2024 03:05 AM Phosphorus: Lab Results Component Value Date/Time PHOS 4.5 09/29/2024 11:50 AM PHOS 3.4 09/29/2024 06:54 AM PHOS 4.2 09/29/2024 03:05 AM Ionized Calcium: Lab Results Component Value Date/Time CAION 1.13 10/01/2024 08:06 AM CAION 1.20 09/30/2024 10:01 AM CAION 1.20 09/29/2024 11:50 AM Urinalysis: Lab Results Component Value Date/Time NITRU NEGATIVE 09/30/2024 09:27 AM COLORU Yellow 09/30/2024 09:27 AM PHUR 5.0 09/30/2024 09:27 AM PHUR 5.5 01/19/2024 09:11 AM WBCUA 5 TO 10 09/30/2024 09:27 AM RBCUA 10 TO 20 09/30/2024 09:27 AM MUCUS NOT REPORTED 10/27/2021 12:50 PM TRICHOMONAS NOT REPORTED 10/27/2021 12:50 PM YEAST NOT REPORTED 10/27/2021 12:50 PM BACTERIA None 09/30/2024 09:27 AM LEUKOCYTESUR NEGATIVE 09/30/2024 09:27 AM UROBILINOGEN Normal 09/30/2024 09:27 AM BILIRUBINUR NEGATIVE 09/30/2024 09:27 AM GLUCOSEU 3+ 09/30/2024 09:27 AM KETUA NEGATIVE 09/30/2024 09:27 AM AMORPHOUS NOT REPORTED 10/27/2021 12:50 PM HgBA1c: Lab Results Component Value Date/Time LABA1C 09/28/2024 03:13 PM Sent to reference laboratory. Separate report to follow. LABA1C >16.5 09/28/2024 03:13 PM TSH: Lab Results Component Value Date/Time TSH 0.58 01/19/2024 07:38 AM Lactic Acid: Lab Results Component Value Date/Time LACTA 3.4 09/28/2024 11:29 AM LACTA 2.3 09/28/2024 08:34 AM LACTA 2.2 01/19/2024 01:48 AM Troponin: No results for input(s): TROPONINI in the last 72 hours. Microbiology: Results Procedure Component Value Units Date/Time Culture, Respiratory [[id number]] (Abnormal) Collected: 09/28/242053 Order Status: Completed Specimen: Respiratory specimen from Tracheal Aspirate Updated: 09/30/24 0903 Specimen Description .TRACHEAL ASPIRATE Special Requests Site: Respiratory specimen Direct Exam < 10 EPITHELIAL CELLS/LPF >10, <25 NEUTROPHILS/LPF FEW GRAM POSITIVE COCCI IN PAIRS Culture NORMAL RESPIRATORY AYDEN LIGHT GROWTH MRSA DNA Probe, Nasal [[id number]] Collected: 09/28/24 1638 Order Status: Completed Specimen: Nares from Nasal Updated: 09/29/24 0856 Specimen Description .NASAL SWAB MRSA, DNA, Nasal NEGATIVE Comment: NEGATIVE: MRSA DNA not detected by nucleic acid amplification. Results should be used as an adjunct to nosocomial control efforts to identify patients needing enhanced precautions. The test is not intended to identify patients with staphylococcal infections. Results should not be used to guide or monitor treatment for MRSA infections. LEGIONELLA ANTIGEN, URINE [[id number]] Collected: 09/28/24 1625 Order Status: Completed Specimen: Urine Updated: 12/13/24 1757 Legionella Pneumophilia Ag, Urine NEGATIVE Comment: L. pneumophila serogroup 1 antigen not detected. A negative result does not exclude infection with Leginella pnemophila serogroup 1 nor does it rule out other microbial-caused respiratory infections of disease caused by other serogroups of Legionella pneumophila. Strep Pneumoniae Antigen [[id number]] Collected: 09/28/24 162 Order Status: Completed Specimen: Urine, clean catch Updated: 09/28/241754 Source .URINE Strep pneumo Ag NEGATIVE Comment: Strep pneumoniae antigen not detected Respiratory Panel, Molecular, with COVID-19 (Restricted: peds pts or suitable admitted adults) [[id number]] Collected: 09/28/24 162 Order Status: Completed Specimen: Respiratory specimen from Nasopharyngeal Swab Updated: 09/28/24 182 Specimen Description .NASOPHARYNGEAL SWAB Adenovirus PCR Not [...] Performed by multiplexed nucleic acid assay. Culture, Blood 1 [[id number]] (Abnormal) (Susceptibility) Collected: 09/28/24 0839 Order Status: Completed Specimen: Blood Updated: 10/01/24 08 Specimen Description .BLOOD Special Requests 20ml rac Culture POSITIVE Blood Culture DIRECT GRAM STAIN FROM BOTTLE: GRAM POSITIVE COCCI AND GPCB Streptococcus species (not S. agalactiae (Group B), S. pneumoniae, or S. pyogenes (Group A)) Methodology- Polymerase Chain Reaction (PCR) Detected: Coagulase negative Staphylococcus species (not S.epidermidis, or S. lugdunensis) Methodology- Polymerase Chain Reaction (PCR) ENTEROCOCCUS AVIUM Identification by MALDI-TOF STAPHYLOCOCCUS SPECIES, COAGULASE NEGATIVE A single positive blood culture of coagulase negative Staphylocci, diphtheroids,micrococci, Cutibacterium, viridans Streptocci, Bacillus, or Lactobacillus species should be interpreted with caution and viewed as a likely skin contaminant. (NOTE) Direct Gram Stain from bottle result called to and read back by:YECENIA JOHNSON RN, [facility], 09/29/24 0745, RB DJR Susceptibility Enterococcus avium BACTERIAL SUSCEPTIBILITY PANEL MARINE ampicillin <=2 Sensitive Gentamicin, High Level Sensitive Streptomycin, Hi Level Sensitive vancomycin <=0.5 Sensitive Culture, Blood 2 [[id number]] Collected: 09/28/24 0834 Order Status: Completed Specimen: Blood Updated: 10/02/24649 Specimen Description .BLOOD Special Requests 20ML RIGHT WRIST Culture NO GROWTH 4 DAYS Radiology/Imaging: US RENAL COMPLETE Result Date: 09/29/2024 1. No evidence of hydronephrosis. 2. Mildly hyperechoic kidneys bilaterally suggesting medical renal disease. 3. Unremarkable appearance of the bladder. A Lin catheter is in place. XR ABDOMEN FOR NG/OG/NE TUBE PLACEMENT Result Date: 09/28/2024 Enteric tube appears to be in appropriate position. XR CHEST PORTABLE Result Date: 09/28/2024 No acute cardiopulmonary process. Endotracheal tube with the tip in the midtrachea. CT CHEST ABDOMEN PELVIS W CONTRAST Additional Contrast? None Result Date: 09/28/2024 Few ground-glass opacities laterally in the left lung concerning for an infectious process. Trace amount of fluid and potential inflammation adjacent to the pancreas concerning for pancreatitis. CTA HEAD NECK W CONTRAST Result Date: 09/28/2024 No significant stenosis or evidence for large vessel occlusion. Few partially visualized ground-glass opacities in the left lung concerning for pneumonia. CT HEAD WO CONTRAST Result Date: 09/28/2024 No acute intracranial abnormality. Remote right parietal lobe infarct. MRI brain 09/30/24: IMPRESSION: 1. Abnormal signal intensity within the cortex and subcortical white matter of the right parietal lobe, right temporal lobe and right occipital lobe in a distribution similar to the findings on the previous exam from 01/22/2024. Differential considerations include an encephalitis, postictal edema or asymmetric PRES (an uncommon presentation). 2. Punctate acute infarct within the cortex of the right parietal lobe. ASSESSMENT: Patient Active Problem List Diagnosis Date Noted NSTEMI (non-ST elevated myocardial infarction) (HCC) 09/29/2024 Abnormal finding on MRI of brain 10/01/2024 DKA, type 2, not at goal (HCC) 09/28/2024 Acute hypoxemic respiratory failure 09/28/2024 Central apnea 01/22/2024 Acute metabolic encephalopathy 01/19/2024 Hypertensive emergency 01/19/2024 Fever 01/19/2024 Altered mental status 01/19/2024 Encephalopathy acute 01/19/2024 Hypertensive urgency 01/19/2024 Lactic acidosis 01/19/2024 Bacteremia due to Staphylococcus aureus Sinus tachycardia Mild malnutrition (HCC) 10/28/2021 Diabetic acidosis without coma (HCC) 10/27/2021 PLAN: WEAN PER PROTOCOL: [] No [] Yes [x] N/A ICU PROPHYLAXIS: Stress ulcer: [x] PPI Agent [] [id number] [] Sucralfate [] Other: VTE: [] Enoxaparin [x] Unfract. Heparin Subcut [] EPC Cuffs NUTRITION: [] NPO [] Tube Feeding (Specify: ) [] TPN [x] PO CONSULTATION NEEDED: [x] No [] Yes TRANSFER OUT OF ICU: [] No [x] Yes Fluids: None Feeding: DM diet Analgesics: Tylenol PRN Sedation: none Thrombo-prophylaxis: Hep SC Mobilization: PT/OT Head Up: Yes Hemodynamics: Stable, no pressor support Ulcer Prophylaxis: Protonix Glycemic Control: HDSS/ Lantus 25 Spontaneous breathing trial: na Bowel management: na Indwelling catheter: out Drug De-escalation: home meds Plan: Neuro: Awake, alert, and following commands, moving ext spont CT head showing remote parietal infarct Neurology consulted for stroke-like symptoms in ER MRI brain 09/30 showing abnormal signaling which could be encephalitis vs postictal edema vs PRES. Will follow-up further recommendations. Continue on aspirin and lipitor Resp: RA, extubated CT chest concerning for possible pneumonia Respiratory culture growing GP cocci in pairs RPP, Mycoplasma, Legionella. MRSA negative CV: BP at [place] was 225/110 and started on cardene drip initially BP controlled, continue home Norvasc 5 mg and Coreg 25 mg BID Hydralazine 10 mg PRN, not needed Cardiology consulted for rising troponin (NSTEMI) > heparin gtt discontinued Echo on 09/29: EF of 60 to 65% with normal wall motion and moderate concentric hypertrophy Further ischemia workup once patient is discharged from ICU GI/Nutrition: Reg diet with limited carbs /Fluids/Electrolytes: ABHIJIT (baseline 1.4-1.6): Creatinine improved from 2.5 to 2.1. Nephrology following 1.1 L urine output in last 24 hours Strict I/Os Heme: Hemoglobin stable ID: CT chest concerning for possible pneumonia Respiratory culture GP cocci in pairs Blood culture x 1 positive for Enterococcus avium, monitor for sensitivities Leukocytosis resolved Continue Zosyn, day 4, to end 10/04 Endo: Last A1C was 12.0 in 01/2024 History of noncompliance with home insulin Continue high-dose sliding scale and Lantus 25 units, blood glucose levels have been controlled Prophylaxis: DVT: Heparin 5000 TID GI: None Dispo: Transfer to stepdown today Ludmila Rajput MD Emergency Medicine Resident, PGY 3 Critical Care Service 10/02/2024 6:52 AM Associated attestation - Rip Mcmullen MD - 10/02/2024 7:25 PM EST Attending Physician Statement I have discussed the case of Ortiz Gorman, including pertinent history and exam findings with theresident/fellow/medical student/LINE MANAGER/PA. I have seen and examined the patient and the swartz elements ofthe encounter have been performed by me. I agree with the assessment, plan and orders as documentedby the resident/fellow/medical student/LINE MANAGER/PA With changes made to the note as needed. Pt was seen during rounds. Review of Systems: In addition to the pertinent positives and negatives as stated within HPI and the review of systemsas documented in their notes, all other systems were reviewed when able to and are reported negative. Patient is on room air Fluid balance is +5.3 L Improving renal function with creatinine of 2.1 Anemia stable On oral diet On subcutaneous heparin and proton pump inhibitor Patient can be transferred to [facility] bed We will sign off when the patient leaves the ICU Total critical care time caring for this patient with life threatening, unstable organ failure, including direct patient contact, management of life support systems, review of data including imaging and labs, discussions with other team members and physicians at least 30 Min so far today, excludingprocedures. Rip Mcmullen MD 10/02/2024 7:24 PM * Ava Brush RCP - 10/01/2024 10:52 AM EST Pt extubated to 2L nc, positive cuff leak, no stridor, pt sating well at 100% * Chung Noel MD - 10/01/2024 10:15 AM EST NEPHROLOGY PROGRESS NOTE ASSESSMENT Acute kidney injury nonoliguric secondary to ischemic ATN from hypertensive emergency/osmotic diuresis related to DKA complicated further by contrast exposure -improving creatinine peaked to 2.5 Chronic kidney disease stage III secondary to diabetic nephrosclerosis with baseline creatinine of 1.4-1.6 Nonnephrotic range proteinuria with last UPC 2.5 Diabetic ketoacidosis. Resolved Hypertensive emergency manifesting as ABHIJIT/PRESS Left lower lobe pneumonia Acute hypoxic respiratory failure secondary to #4/#5/#6 PLAN Plans to extubate today noted. Continue IV fluids Avoid nephrotoxins Discontinue Lin catheter and check PVR SUBJECTIVE Hospitalized when found down/altered mental sensorium with initial assessment disclosing hypertensive emergency with elevated creatinine and diabetic ketoacidosis along with left lower lobe pneumonia. Currently being managed with decubital call as well as antibiotics which she has shown good response. On mechanical ventilation but prior to extubate today noted. No acute hemodynamic issues overnight.Off pressors not on any Cardene drip. Urine output excellent. DKA protocol. OBJECTIVE Vitals: 10/01/24 0830 10/01/24 0900 10/01/24 0930 10/01/24 1000 BP: (!) 172/90 (!) 145/73 121/62 (!) 106/56 Pulse: 75 72 66 64 Resp: 17 10 (!) 9 Temp: TempSrc: SpO2: 100% 100% 100% 100% Weight: Height: 24HR INTAKE/OUTPUT: Intake/Output Summary (Last 24 hours) at 10/01/2024 1015 Last data filed at 10/01/2024 1002 Gross per 24 hour Intake 3888.46 ml Output 2635 ml Net 1253.46 ml General appearance:Awake, alert, in no acute distress HEENT: PERRLA Respiratory::vesicular breath sounds,no wheeze/crackles Cardiovascular:S1 S2 normal,no gallop or organic murmur. Abdomen:Non tender/non distended.Bowel sounds present Extremities: No Cyanosis or Clubbing,Lower extremity edema Neurological:Alert and oriented.No abnormalities of mood, affect, memory, mentation, or behavior are noted MEDICATIONS Scheduled Meds: insulin glargine 25 Units SubCUTAneous QAM amLODIPine 5 mg Oral Daily insulin lispro 0-16 Units SubCUTAneous 4x Daily AC & HS carvedilol 25 mg Oral BID WC heparin (porcine) 5,000 Units SubCUTAneous 3 times per day sodium chloride flush 5-40 mL IntraVENous 2 times per day piperacillin-tazobactam 3,375 mg IntraVENous Q8H atorvastatin 40 mg Oral Nightly aspirin 81 mg Oral Daily pantoprazole (PROTONIX) 40 mg in sodium chloride (PF) 0.9 % 10 mL injection 40 mg IntraVENous Daily Continuous Infusions: sodium chloride 100 mL/hr at 10/01/24 1002 dextrose sodium chloride Stopped (10/01/24 0736) propofol Stopped (10/01/24 1000) sodium chloride Stopped (09/28/24 2124) dextrose 5 % and 0.45 % NaCl Stopped (09/29/24 1200) PRN Meds: glucose, dextrose bolus OR dextrose bolus, glucagon (rDNA), dextrose, hydrALAZINE, sodium chloride flush, sodium chloride, potassium chloride OR potassium chloride, magnesium sulfate, ondansetron OR ondansetron, polyethylene glycol, acetaminophen OR acetaminophen, dextrose bolus OR dextrose bolus, potassium chloride, magnesium sulfate, sodium phosphate 15 mmol in sodium chloride 0.9 % 250 mL IVPB, dextrose 5 % and 0.45 % NaCl, labetalol Home Meds: Medications Prior to Admission: insulin lispro (HUMALOG) 100 UNIT/ML SOLN injection vial, Inject 0-16 Units into the skin 3 times daily (with meals) insulin glargine (LANTUS SOLOSTAR) 100 UNIT/ML injection pen, Inject 20 Units into the skin nightly carvedilol (COREG) 12.5 MG tablet, Take 1 tablet by mouth 2 times daily (with meals) NIFEdipine (PROCARDIA XL) 30 MG extended release tablet, Take 1 tablet by mouth daily folic acid (FOLVITE) 1 MG tablet, Take 1 tablet by mouth daily INVESTIGATIONS Last 3 CMP: Recent Labs 09/29/24 1150 09/30/24 0404 10/01/24 0541 NA 133* 132* 139 K 4.4 4.3 4.0 CL 101 101 108* CO2 20 19* 23 BUN 39* 47* 46* CREATININE 2.4* 2.5* 2.3* CALCIUM 8.1* 7.8* 8.1* Last 3 CBC: Recent Labs 09/29/24 0305 09/30/24 0404 10/01/24 0541 WBC 17.6* 12.6* 7.3 RBC 3.08* 2.91* 2.89* HGB 8.8* 8.4* 8.3* HCT 26.1* 26.2* 26.0* MCV 84.7 90.0 90.0 MCH 28.6 28.9 28.7 MCHC 33.7 32.1 31.9 RDW 13.1 13.3 13.3 PLT 214 186 180 MPV 10.6 10.9 10.9 Please do not hesitate to call with questions This note is created with the assistance of a speech-recognition program. While intending to generate a document that actually reflects the content of the visit, no guarantees can be provided that every mistake has been identified and corrected by editing Chung Noel MD MD, [facility] (), FACP 10/01/2024 10:15 AM [facility] * Marce Restrepo, MARINE SERVICE MANAGER - TAKE AWAY MAN - 10/01/2024 9:41 AM EST NEUROLOGY INPATIENT PROGRESS NOTE 10/01/2024 Current Exam: Chart reviewed. Discussed with RN. Patient remains intubated and on sedation, plan for extubation later today. He is able to nod to questions, follows simple commands. Brief History: Ortiz Gorman is a 48 y.o. male with H/O DM, who was admitted on 09/28/2024 after being found downat home, reportedly covered in feces, confused, and slurring his words. He was taken to [facility] where he was found to have significantly elevated SBP greater than 250s, glucose was 820. He was also found to have ABHIJIT, elevated troponins, lactic acidosis, and ABG consistent with hypoxemia. Nesha have a history of medication noncompliance. He was intubated for airway protection, sedated, and transferred to [facility] to the ICU. MRI brain was done showing a similar abnormality as compared to January 2024 with density/diffusion restriction in the right parietal region. Patient was seen by our team in January 2024 after presenting with a headache and significant hypertension. MRI done at that time showed hyperintensity in the perimesencephalic cistern region with bilateral cerebral convexities which could be related to early meningitis versus remote SAH. CSF studiesat that time are noninfectious and with no evidence of hemorrhage. He eventually improved and was extubated with repeat imaging done during that stay showing improvement in the hyperintense regions although showed a new diffusion restriction in the right parietal lobe which could be related to a stroke. No current facility-administered medications on file prior to encounter. Current Outpatient Medications on File Prior to Encounter Medication Sig Dispense Refill insulin lispro (HUMALOG) 100 UNIT/ML SOLN injection vial Inject 0-16 Units into the skin 3 times daily (with meals) 30 mL 1 insulin glargine (LANTUS SOLOSTAR) 100 UNIT/ML injection pen Inject 20 Units into the skin nightly 5 Adjustable Dose Pre-filled Pen Syringe 3 carvedilol (COREG) 12.5 MG tablet Take 1 tablet by mouth 2 times daily (with meals) 60 tablet 3 NIFEdipine (PROCARDIA XL) 30 MG extended release tablet Take 1 tablet by mouth daily 30 tablet 3 folic acid (FOLVITE) 1 MG tablet Take 1 tablet by mouth daily 30 tablet 3 Allergies: Ortiz Goramn has No Known Allergies. Past Medical History: Diagnosis Date Diabetes mellitus (HCC) Past Surgical History: Procedure Laterality Date APPENDECTOMY LEG SURGERY Right 10/30/2021 right intrarticular hip aspiration under fluro performed by Vincent Kuhn DO at [facility] OR Social History: Ortiz Gorman reports that he has never smoked. His smokeless tobacco use includeschew. He reports that he does not currently use alcohol. He reports that he does not use drugs. No family history on file. Objective: BP 121/62 Pulse 66 Temp 97.6 F (36.4 C) (Oral) Resp 10 Ht 1.778 m (5' 10 ) Wt 82.9 kg (182 lb 12.2 oz) SpO2 100% BMI 26.22 kg/m Blood pressure range: Systolic (24hrs), Av , Min:102 , Max:180 ; Diastolic (24hrs), Av, Min:53, Max:111 Review of Systems: Cannot complete due to patient condition Limited Neuro Exam: Patient remains intubated and sedated Opens eyes, able to nod to yes/no questions Oriented to self, seems to know he is in the hospital Nods to yes/no questions Follows commands to squeeze hands and wiggle toes bilaterally Left side appears slightly weaker than left with commands above Data: Lab Results: CBC: Recent Labs 09/29/24 0305 09/30/24 0404 10/01/24 0541 WBC 17.6* 12.6* 7.3 HGB 8.8* 8.4* 8.3* PLT 214 186 180 BMP: Recent Labs 09/29/24 1150 09/30/24 0404 10/01/24 0541 NA 133* 132* 139 K 4.4 4.3 4.0 CL 101 101 108* CO2 20 19* 23 BUN 39* 47* 46* CREATININE 2.4* 2.5* 2.3* GLUCOSE 258* 233* 180* Lab Results Component Value Date CHOL 136 10/31/2021 HDL 31 (L) 10/31/2021 TRIG 62 01/20/2024 ALT 24 09/28/2024 AST 29 09/28/2024 TSH 0.58 01/19/2024 INR 1.1 09/28/2024 LABA1C 09/28/2024 Sent to reference laboratory. Separate report to follow. LABA1C >16.5 (H) 09/28/2024 MG 2.2 09/29/2024 PHOS 4.5 09/29/2024 Diagnostic data reviewed: CT HEAD (09/28/24) - No acute intracranial abnormality. Remote right parietal lobe infarct. CTA HEAD AND NECK (09/28/24) - No significant stenosis or evidence for large vessel occlusion. Few partially visualized ground-glass opacities in the left lung concerning for pneumonia. BRAIN MRI (09/30/24) - 1. Abnormal signal intensity within the cortex and subcortical white matter of the right parietal lobe, right temporal lobe and right occipital lobe in a distribution similar to the findings on the previous exam from 01/22/2024. Differential considerations include an encephalitis, postictal edema or asymmetric PRES (an uncommon presentation). 2. Punctate acute infarct within the cortex of the right parietal lobe. EEG (10/09/24) - Abnormal awake EEG. The slowing mentioned above suggests moderate non specific encephalopathy. No epileptiform discharges were identified. ECHO (10/09/24) - Left Ventricle: Normal left ventricular systolic function with a visually estimated EF of 60 - 65%.EF by 2D Simpsons Biplane is 65%. Left ventricle size is normal. Increased wall thickness. Findingsconsistent with moderate concentric hypertrophy. Normal wall motion. Global longitudinal strain is -16.7%. Normal diastolic function. Aortic Valve: Trileaflet valve. Mitral Valve: Mild regurgitation. Pericardium: Trivial pericardial effusion present. Image quality is adequate. Impression: -Acute metabolic encephalopathy in the setting of DKA, hypertensive urgency -Abnormal MRI brain with hyperintensity and diffusion restriction in the right parietal region -Punctate infarct in the right parietal lobe -History of medication non compliance Plan: -MRI brain reviewed; FLAIR findings are similar to prior back in January 2024. Will plan for repeat MRI brain in 4 weeks. These findings are nonspecific but appear to be improved from 02/07; prior CSF workup essentially unrevealing, EEG with nothing epileptiform. -There is a punctate area of infarct, in the setting of severe hyperglycemia and hypertension. Hgb A1C >16.5, will update lipid panel -Patient needs stricter control of stroke risk factors -He continues on ASA and statin daily -Continued management of metabolic disturbances as per primary team -We will follow Please note that this note was generated using a voice recognition dictation software. Although every effort was made to ensure the accuracy of this automated harpsichord maker, some errors in harpsichord maker may have occurred. Associated attestation - Mary Lou Tom DO - 10/01/2024 9:55 PM EST Attending Physician Statement: I have discussed the care of Ortiz Gorman, including pertinent history and exam findings with theAPP. I have seen and examined the patient and the swartz elements of the encounter have been performedby me. I have reviewed medications, clinical laboratory, imaging and other diagnostic tests with the PAT. I agree with the assessment, plan and orders as documented by the PAT with changes made to the note as needed. In addition: Chart reviewed extensively. Patient seen and examined. At time of my exam, he is extubated, following commands. Oriented to person, place, not time. Intermittently inattentive. He is a poor historian. Admits to noncompliance with medications. Denies any prior history of seizures or seizure-like activity. Reviewed his MRI brain and compared to previous admission in January. I do think there is improvement in the FLAIR signal changes and diffusion restriction, noted with mildrestriction in the posterior temporal region on the right. ?postictal changes with provoked seizure. EEG with slowing, no epileptiform discharges or seizures. He has an independent punctate area of acute infarction in the right parietal cortical region. Possible initial MRI in January was atypical presentation of infarct. The independent punctate diffusion restriction is suggestive of a new area of infarction. For now, continue asa, statin. CTA head and neck with no significant stenosis or occlusion. TTE with no acute findings. Consider 30 day director cardiac at me. Will recommend repeat MRI brain in 4 weeks as an outpatient. Counseled extensively regarding medication compliance and risk of continued cerebrovascular and cardiovascular complications. Mary Lou Tom, 10/01/2024 9:35 PM * Joseline Teague RN - 10/01/2024 9:05 AM EST Inpatient Diabetes Education Rounded on Ortzi Gorman. Intubated, no family at bedside. Left folder with our contact information at the bedside. Lab Results Component Value Date LABA1C 09/28/2024 Sent to reference laboratory. Separate report to follow. LABA1C >16.5 (H) 09/28/2024 LABA1C 09/28/2024 Sent to reference laboratory. Separate report to follow. JOSELINE TEAGUE RN Note from Tuesday copied below for reference Diabetes Education Note Referral for diabetes education received per DKA orderset. Pt life flighted from [facility] to [facility] ER admitted to 3002: Diabetic ketoacidosis with coma associated with type 2 diabetes mellitus (HCC), Pneumonia of left lower lobe due to infectious organism, Altered mental status, unspecified altered mental status type, ABHIJIT (acute kidney injury) (HCC), Acute respiratory failure with hypoxia, Hypertensive encephalopathy, Non compliance w medication regimen. Adm BS 820, HgbA1c 12% pt intubated and placed on insulin drip. Will follow and provide DM education at a more appropriate time. * Sussy Mtz MD - 10/01/2024 8:19 AM EST Physician Progress Note PATIENT: ORTIZ GORMAN CSN #: [id number] : 1975 ADMIT DATE: 09/28/2024 2:35 PM DISCH DATE: RESPONDING PROVIDER #: SUSSY MZT QUERY TEXT: Pt admitted with DKA, possible pneumonia. Noted documentation of Sepsis 2/2 pneumonia on 09/29-09/30 by ordered sap portal consultant. If possible, please document in progress notes and discharge summary: The medical record reflects the following: Risk Factors: possible pneumonia Clinical Indicators: per cardiology notes Sepsis 2/2 pneumonia , per critical care progress notes CT chest concerning for possible pneumonia, Respiratory culture growing GP cocci in pairs, 1 blood culture from-growing Streptococcus & Staph species, Bacteremia due to Staphylococcus aureus, Acute hypoxemic respiratory failure , initial WBC 17.6 with HR 113 and T 101.4, LA 3.2 Treatment: IV fluid bolus, IV Zosyn & Linezolid, mechanical ventilation, labs, cultures, ICU monitoring Options provided: -- Sepsis 2/2 pneumonia confirmed present on admission -- Pneumonia without sepsis confirmed, Please specify type of pneumonia -- Sepsis and pneumonia ruled out -- Other - I will add my own diagnosis -- Disagree - Not applicable / Not valid -- Disagree - Clinically unable to determine / Unknown -- Refer to Clinical Documentation Reviewer PROVIDER RESPONSE TEXT: The diagnosis of Sepsis 2/2 pneumonia was confirmed as present on admission. Query created by: Estela Dimas on 10/01/2024 7:33 AM Electronically signed by: SUSSY MTZ 10/01/2024 8:18 AM * Kia Sanders MD - 10/01/2024 7:47 AM EST Images from the original note were not included. [employer]n Landsc[employer] Manager Progress Note Date: 10/01/2024 Patient name: Ortiz Gorman Date of admission: 09/28/2024 2:35 PM Date of : 1975 PCP: Vincent Winters MD Subjective: Patient seen and examined at bedside. Overnight events noted. Doing well from cardiac standpoint. Hypertensive overnight. Medications: Scheduled Meds: insulin glargine 25 Units SubCUTAneous QAM amLODIPine 5 mg Oral Daily insulin lispro 0-16 Units SubCUTAneous 4x Daily AC & HS carvedilol 25 mg Oral BID WC heparin (porcine) 5,000 Units SubCUTAneous 3 times per day sodium chloride flush 5-40 mL IntraVENous 2 times per day piperacillin-tazobactam 3,375 mg IntraVENous Q8H atorvastatin 40 mg Oral Nightly aspirin 81 mg Oral Daily pantoprazole (PROTONIX) 40 mg in sodium chloride (PF) 0.9 % 10 mL injection 40 mg IntraVENous Daily Continuous Infusions: sodium chloride 80 mL/hr at 10/01/24 0715 dextrose sodium chloride 10 mL/hr at 10/01/24 0715 propofol 50 mcg/kg/min (10/01/24 0737) sodium chloride Stopped (09/28/244) dextrose 5 % and 0.45 % NaCl Stopped (09/29/24 1200) CBC: Recent Labs 09/29/24 0305 09/30/24 0404 10/01/24 0541 WBC 17.6* 12.6* 7.3 HGB 8.8* 8.4* 8.3* PLT 214 186 180 BMP: Recent Labs 09/29/24 1150 09/30/24 0404 10/01/24 0541 NA 133* 132* 139 K 4.4 4.3 4.0 CL 101 101 108* CO2 20 19* 23 BUN 39* 47* 46* CREATININE 2.4* 2.5* 2.3* GLUCOSE 258* 233* 180* Hepatic: Recent Labs 09/28/24 0834 AST 29 ALT 24 BILITOT 0.4 ALKPHOS 192* Lab Results Component Value Date CHOL 136 10/31/2021 TRIG 62 01/20/2024 HDL 31 (L) 10/31/2021 LDL 77 10/31/2021 VLDL NOT REPORTED 10/31/2021 CHOLHDLRATIO 4.4 10/31/2021 INR: Recent Labs 09/28/24 0834 09/28/24 1824 INR 0.9 1.1 Objective: Vitals: BP (!) 159/94 Pulse 77 Temp 99.3 F (37.4 C) (Axillary) Resp 17 Ht 1.778 m (5' 10 ) Wt 82.9 kg (182 lb 12.2 oz) SpO2 100% BMI 26.22 kg/m General appearance: cooperative with exam HEENT: Normocephalic, atraumatic Neck: no carotid bruit, no JVD, trachea midline and thyroid not enlarged Lungs: clear to auscultation bilaterally Heart: regular rate and rhythm, S1, S2 normal, no murmur Abdomen: soft, bowel sounds normal Extremities: no edema or swelling EKG: Results for orders placed or performed during the hospital encounter of 09/28/24 EKG 12 Lead Result Value Ref Range Ventricular Rate 111 BPM Atrial Rate 111 BPM P-R Interval 166 ms QRS Duration 82 ms Q-T Interval 336 ms QTc Calculation (Bazett) 456 ms P [place] 79 degrees R [place] 68 degrees T [place] 68 degrees Narrative Sinus tachycardia Possible Left atrial enlargement Nonspecific ST abnormality Abnormal ECG No previous ECGs available Echo: Results for orders placed or performed during the hospital encounter of 10/27/21 Echocardiogram complete 2D with doppler with color Result Value Ref Range Left Ventricular Ejection Fraction 60 LVEF MODALITY ECHO Narrative [facility] Transthoracic Echocardiography Report (TTE) Patient Name SHERIF Date of Study 10/30/2021 ORTIZ Quezada Date of 1975 Gender Male Age 45 year(s) Race Room Number I307 Height: 71 inch, 180.34 cm Corporate ID [id number] Weight: 174 pounds, 78.9 kg # Patient Acct [id number] BSA: 1.99 m^2 BMI: 24.27 # kg/m^2 MR # [id number] Supervisor [employer] Britt,Raysa Interpreting Physician Sammie Sher Fellow Referring Nurse Sarita Arzola CNP Practitioner Interpreting Referring Physician Fellow Type of Study TTE procedure:2D Echocardiogram, M-Mode, Doppler, Color Doppler. Procedure Date Date: 10/30/2021 Start: 02:34 PM Study Location: [facility] Indications:Tachycardia. History / Tech. Comments: Dx: tachycardia, infection Patient Status: Inpatient Height: 71 inches Weight: 174 pounds BSA: 1.99 m^2 BMI: 24.27 kg/m^2 CONCLUSIONS Summary Global left ventricular systolic function appears preserved with an estimated ejection fraction of >60%. The left ventricular cavity size is within normal limits and the left ventricular wall thickness is mildly increased. No definite specific wall motion abnormalities were identified. No significant valvular abnormalities. Evidence of mild diastolic dysfunction is seen. No prior studies were available for comparison. No evidence of infective endocarditis was identified in this study. Consider KEELEY if clinically indicated. Signature FINDINGS Left Atrium Left atrium is normal in size. Left Ventricle Global left ventricular systolic function appears preserved with an estimated ejection fraction of >60%. The left ventricular cavity size is within normal limits and the left ventricular wall thickness is mildly increased. No definite specific wall motion abnormalities were identified. Right Atrium Right atrium is normal in size. Right Ventricle Normal right ventricular size and function. Mitral Valve Normal mitral valve structure and function. Aortic Valve Normal aortic valve structure and function without stenosis or regurgitation. Tricuspid Valve Normal tricuspid valve structure and function. Pulmonic Valve The pulmonic valve is normal in structure. Pericardial Effusion No significant pericardial effusion is seen. Miscellaneous Evidence of mild diastolic dysfunction is seen. Normal aortic root dimension. M-mode / 2D Measurements & Calculations: LVIDd:4.42 cm(3.7 - 5.6 cm) Diastolic Volume:86.23 ml LVIDs:3.13 cm(2.2 - 4.0 cm) Systolic Volume:30.7 ml IVSd:1.06 cm(0.6 - 1.1 cm) Aortic Root:3.35 cm(2.0 - 3.7 cm) LVPWd:1.04 cm(0.6 - 1.1 cm) LA Dimension: 2.48 cm(1.9 - 4.0 cm) Fractional Shortenin.19 % LA volume/Index: 46.2 ml /23m^2 Calculated LVEF (%): 64.4 % AV Cusp Separation: 2.11 cm Mitral: Aortic Valve Area (P1/2-Time): 5.35 cm^2 Peak Velocity: 0.98 m/s Peak E-Wave: 0.66 m/s Mean Velocity: 0.74 m/s Peak A-Wave: 0.56 m/s Peak Gradient: 3.82 mmHg E/A Ratio: 1.18 Mean Gradient: 2.43 mmHg Peak Gradient: 1.77 mmHg Acceleration Time: 49.73 msec P1/2t: 41.13 msec AV VTI: 17.11 cm Diastology / Tissue Doppler Lateral Wall E' velocity:0.11 m/s Lateral Wall E/E':6.51 09/28/24 ECHO (TTE) COMPLETE (PRN CONTRAST/BUBBLE/STRAIN/3D) 09/29/2024 10:25 PM (Final) Interpretation Summary Left Ventricle: Normal left ventricular systolic function with a visually estimated EF of 60 - 65%.EF by 2D Simpsons Biplane is 65%. Left ventricle size is normal. Increased wall thickness. Findingsconsistent with moderate concentric hypertrophy. Normal wall motion. Global longitudinal strain is -16.7%. Normal diastolic function. Aortic Valve: Trileaflet valve. Mitral Valve: Mild regurgitation. Pericardium: Trivial pericardial effusion present. Image quality is adequate. Signed by: Kika Raymond DO on 09/29/2024 10:25 PM Hospital Problems Last Modified POA * (Principal) DKA, type 2, not at goal ([facility]) 09/28/2024 Yes NSTEMI (non-ST elevated myocardial infarction) ([facility]) 09/29/2024 Yes Acute metabolic encephalopathy 09/30/2024 Yes Acute hypoxemic respiratory failure 09/28/2024 Yes Assessment: Elevated Troponins- likely type II MS HTN emergency- off cardene drip AMS-extubated on 10/01 ABHIJIT Sepsis 2/2 pneumonia DKA Normal TTE 01/2024 Plan: TTE shows no concerning acute abnormalities, therefore, will perform stress test once out of ICU and before discharge. Normotensive with occasional elevated BP readings. No complaints of chest pain today after extubation. Rest of cares per primary team. Please follow the rounding attending's attestation for final recommendations. Attending Physician Statement I have discussed the case of Ortiz Gorman including pertinent history and exam findings with the student/resident/fellow. I have seen and examined the patient and the swartz elements of the encounter have been performed by me. I agree with the assessment, plan and orders as documented by the resident With changes made to the note. . [place] Landscaping Manager [phone] * Sirena Sanchez MD - 10/01/2024 7:16 AM EST Images from the original note were not included. INTENSIVE CARE UNIT Resident Physician Progress Note Patient - Ortiz Gorman Date of Admission - 09/28/2024 2:35 PM Date of Evaluation - 10/01/2024 Room and Bed Number - 3002/3002-01 Hospital Day - 3 SUBJECTIVE: History of Presenting Illness Chief complaint: Found down, altered mental status History was obtained from chart review and unobtainable from patient due to being intubated & sedated. Ortiz Gorman is a 48 y.o. year male with a history of diabetes, hypertension who presents as a transfer [facility]. He was brought to the ED department after being found by his family in the bathroom covered in feces/urine and confused. As per the family, he's not compliant with his diab etes and blood pressure medications. NIH score in the ED was 6. His blood pressure was 225/[address] head showed a remote parietal infarct. He was started on a cardene drip, and subsequently intubated in the ED due to worsening mentation. His blood sugar was 820, beta-hydroxybutyrate 2.64 and ABG showed pH of 7.38 with HCO3 of 20.6. CT chest also revealed ground glass opacities in the left lung concerning for pneumonia As per chart review, patient was admitted in January with a similar presentation of slurred speech, facial drop and was admitted to the ICU but ended leaving AMA. OVERNIGHT EVENTS: No acute events overnight. Per nursing, patient becoming much more awake and alert and following commands. TODAY: Patient remains on sedation but following commands. He has been bridged off insulin gtt. On high dose sliding scale with Lantus. Blood sugars have been controlled. Neurology following due to concernsfor stroke-like symptoms in ER. MRI was completed yesterday. Nephrology following for ABHIJIT. Adequateurine output. Has remained hemodynamically stable, not requiring pressors. AWAKE & FOLLOWING COMMANDS: [] No [x] Yes SECRETIONS Amount: [x] Small [] Moderate [] Large [] None Color: [] White [] Colored [] Bloody SEDATION: RAAS Score: [x] Propofol gtt [] Versed gtt [] Ativan gtt [] No Sedation PARALYZED: [x] No Yes VASOPRESSORS: [x] No [] Yes [] Levophed [] Dopamine [] Vasopressin [] Dobutamine [] Phenylephrine [] Epinephrine OBJECTIVE: VITAL SIGNS: BP (!) 153/95 Pulse 75 Temp 97.6 F (36.4 C) (Oral) Resp (!) 9 Ht 1.778 m (5' 10 ) Wt 82.9kg (182 lb 12.2 oz) SpO2 97% BMI 26.22 kg/m Tmax over 24 hours: Temp (24hrs), Av.7 F (37.1 C), Min:97.6 F (36.4 C), Max:99.7 F (37.6 C) Patient Vitals for the past 8 hrs: BP Temp Temp src Pulse Resp SpO2 Weight 10/01/24 1130 (!) 153/95 -- -- 75 (!) 9 97 % -- 10/01/24 1100 (!) 173/79 -- -- 74 15 100 % -- 10/01/24 1049 (!) 171/86 -- -- 78 18 100 % -- 10/01/24 1048 (!) 146/91 -- -- 79 13 100 % -- 10/01/24 1030 132/67 -- -- 72 19 100 % -- 10/01/24 1000 (!) 106/56 -- -- 64 (!) 9 100 % -- 10/01/24 0930 121/62 -- -- 66 10 100 % -- 10/01/24 0900 (!) 145/73 -- -- 72 -- 100 % -- 10/01/24 0830 (!) 172/90 -- -- 75 17 100 % -- 10/01/24 0800 (!) 159/84 97.6 F (36.4 C) Oral 75 18 100 % -- 10/01/24 0741 -- -- -- 77 17 100 % -- 10/01/24 0735 -- -- -- 76 17 100 % -- 10/01/24 0730 (!) 180/90 -- -- 77 20 100 % -- 10/01/24 0700 (!) 159/94 -- -- 76 15 100 % -- 10/01/24 0630 (!) 140/79 -- -- 62 17 100 % -- 10/01/24 0624 -- -- -- 62 17 100 % -- 10/01/24 0600 (!) 154/83 -- -- 63 17 100 % -- 10/01/24 0530 (!) 151/82 -- -- 67 17 100 % 82.9 kg (182 lb 12.2 oz) 10/01/24 0500 139/82 -- -- 66 17 100 % -- 10/01/24 0450 -- -- -- 69 17 100 % -- 10/01/24 0430 134/77 -- -- 68 17 100 % -- 10/01/24 0400 (!) 162/87 99.3 F (37.4 C) Axillary 73 17 100 % -- Intake/Output Summary (Last 24 hours) at 10/01/2024 1151 Last data filed at 10/01/2024 1100 Gross per 24 hour Intake 4011.46 ml Output 2595 ml Net 1416.46 ml Date 10/01/24 0000 - 10/01/24 2359 Shift 7772-5094 8033-8457 6839-7871 24 Hour Total INTAKE I.V.(mL/kg) 1283.3(15.5) 294(3.5) 1577.3(19) NG/GT(mL/kg) 430(5.2) 378(4.6) 808(9.7) IV Piggyback(mL/kg) 65.1(0.8) 30.4(0.4) 95.4(1.2) Shift Total(mL/kg) 1778.3(21.5) 702.4(8.5) 2480.7(29.9) OUTPUT Urine(mL/kg/hr) 975(1.5) 310 1285 Emesis/NG output(mL/kg) 10(0.1) 10(0.1) Shift Total(mL/kg) 975(11.8) 320(3.9) 1295(15.6) Weight (kg) 82.9 82.9 82.9 82.9 Wt Readings from Last 3 Encounters: 10/01/24 82.9 kg (182 lb 12.2 oz) 09/28/24 88 kg (194 lb 0.1 oz) 01/21/24 88.3 kg (194 lb 10.7 oz) Body mass index is 26.22 kg/m . PHYSICAL EXAM: GEN: Intubated, opens eyes to voice, following commands EYES: pupils equal, round, and reactive to light HEENT: Normocephalic, without obvious abnormality LUNGS: On ventilator support, bilateral coarse breath sounds CV: regular rate and rhythm, normal S1 and S2, no S3 or S4, and no murmur noted ABDOMEN: No scars, soft, non-distended, non-tender, no masses palpated NEURO:: Intubated & Sedated, following commands EXTREMITIES: No pedal or leg edema, no calf swelling, no erythema, distal pulses intact MEDICATIONS: Scheduled Meds: insulin glargine 25 Units SubCUTAneous QAM amLODIPine 5 mg Oral Daily insulin lispro 0-16 Units SubCUTAneous 4x Daily AC & HS carvedilol 25 mg Oral BID WC heparin (porcine) 5,000 Units SubCUTAneous 3 times per day sodium chloride flush 5-40 mL IntraVENous 2 times per day piperacillin-tazobactam 3,375 mg IntraVENous Q8H atorvastatin 40 mg Oral Nightly aspirin 81 mg Oral Daily Continuous Infusions: sodium chloride 100 mL/hr at 10/01/24 1002 dextrose sodium chloride Stopped (10/01/24 0736) dextrose 5 % and 0.45 % NaCl Stopped (09/29/24 1200) PRN Meds: glucose, 4 tablet, PRN dextrose bolus, 125 mL, PRN Or dextrose bolus, 250 mL, PRN glucagon (rDNA), 1 mg, PRN dextrose, , Continuous PRN hydrALAZINE, 10 mg, Q6H PRN sodium chloride flush, 5-40 mL, PRN sodium chloride, , PRN potassium chloride, 20 mEq, PRN Or potassium chloride, 10 mEq, PRN magnesium sulfate, 2,000 mg, PRN ondansetron, 4 mg, Q8H PRN Or ondansetron, 4 mg, Q6H PRN polyethylene glycol, 17 g, Daily PRN acetaminophen, 650 mg, Q6H PRN Or acetaminophen, 650 mg, Q6H PRN dextrose bolus, 125 mL, PRN Or dextrose bolus, 250 mL, PRN potassium chloride, 10 mEq, PRN magnesium sulfate, 2,000 mg, PRN sodium phosphate 15 mmol in sodium chloride 0.9 % 250 mL IVPB, 15 mmol, PRN dextrose 5 % and 0.45 % NaCl, , Continuous PRN labetalol, 5 mg, Q6H PRN SUPPORT DEVICES: [x] Ventilator [] BIPAP [] Nasal Cannula [] Room Air VENT SETTINGS (Comprehensive) (if applicable): Vent Information Ventilator ID: Servo i Equipment Changed: HME Ventilator Initiate: Yes Ventilator Discontinue: Yes Vent Mode: CPAP/PS Additional Respiratory Assessments Pulse: 75 Respirations: (!) 9 SpO2: 97 % ETCO2 (mmHg): 33 mmHg Humidification Source: HME Circuit Condensation: Drained ABGs: Arterial Blood Gas result: pH 7.48 CO2 34, pO2 143, bicarb 25 Lab Results Component Value Date/Time PHART 7.385 09/28/2024 09:42 AM ULU2PJZ 35.2 09/28/2024 09:42 AM PO2ART 72.2 09/28/2024 09:42 AM CXV8XNK 20.6 09/28/2024 09:42 AM I4OVCGMO 94.5 09/28/2024 09:42 AM FIO2 30.0 10/01/2024 04:26 AM DATA: Complete Blood Count: Recent Labs 09/29/24 0305 09/30/24 0404 10/01/24 0541 WBC 17.6* 12.6* 7.3 RBC 3.08* 2.91* 2.89* HGB 8.8* 8.4* 8.3* HCT 26.1* 26.2* 26.0* MCV 84.7 90.0 90.0 MCH 28.6 28.9 28.7 MCHC 33.7 32.1 31.9 RDW 13.1 13.3 13.3 PLT 214 186 180 MPV 10.6 10.9 10.9 Last 3 Blood Glucose: Recent Labs 09/28/24 1513 09/28/24 1824 09/28/24 2216 09/29/24 0305 09/29/24 0654 09/29/24 1150 09/30/24 0404 10/01/24 0541 GLUCOSE 316* 241* 415* 214* 588* 258* 233* 180* PT/INR: Lab Results Component Value Date/Time PROTIME 14.3 09/28/2024 06:24 PM INR 1.1 09/28/2024 06:24 PM PTT: Lab Results Component Value Date/Time APTT 20.2 09/28/2024 06:24 PM Comprehensive Metabolic Profile: Recent Labs 09/29/24 1150 09/30/24 0404 10/01/24 0541 NA 133* 132* 139 K 4.4 4.3 4.0 CL 101 101 108* CO2 20 19* 23 BUN 39* 47* 46* CREATININE 2.4* 2.5* 2.3* GLUCOSE 258* 233* 180* CALCIUM 8.1* 7.8* 8.1* Magnesium: Lab Results Component Value Date/Time MG 2.2 09/29/2024 11:50 AM MG 1.6 09/29/2024 06:54 AM MG 1.8 09/29/2024 03:05 AM Phosphorus: Lab Results Component Value Date/Time PHOS 4.5 09/29/2024 11:50 AM PHOS 3.4 09/29/2024 06:54 AM PHOS 4.2 09/29/2024 03:05 AM Ionized Calcium: Lab Results Component Value Date/Time CAION 1.13 10/01/2024 08:06 AM CAION 1.20 09/30/2024 10:01 AM CAION 1.20 09/29/2024 11:50 AM Urinalysis: Lab Results Component Value Date/Time NITRU NEGATIVE 09/30/2024 09:27 AM COLORU Yellow 09/30/2024 09:27 AM PHUR 5.0 09/30/2024 09:27 AM PHUR 5.5 01/19/2024 09:11 AM WBCUA 5 TO 10 09/30/2024 09:27 AM RBCUA 10 TO 20 09/30/2024 09:27 AM MUCUS NOT REPORTED 10/27/2021 12:50 PM TRICHOMONAS NOT REPORTED 10/27/2021 12:50 PM YEAST NOT REPORTED 10/27/2021 12:50 PM BACTERIA None 09/30/2024 09:27 AM LEUKOCYTESUR NEGATIVE 09/30/2024 09:27 AM UROBILINOGEN Normal 09/30/2024 09:27 AM BILIRUBINUR NEGATIVE 09/30/2024 09:27 AM GLUCOSEU 3+ 09/30/2024 09:27 AM KETUA NEGATIVE 09/30/2024 09:27 AM AMORPHOUS NOT REPORTED 10/27/2021 12:50 PM HgBA1c: Lab Results Component Value Date/Time LABA1C 09/28/2024 03:13 PM Sent to reference laboratory. Separate report to follow. LABA1C >16.5 09/28/2024 03:13 PM TSH: Lab Results Component Value Date/Time TSH 0.58 01/19/2024 07:38 AM Lactic Acid: Lab Results Component Value Date/Time LACTA 3.4 09/28/2024 11:29 AM LACTA 2.3 09/28/2024 08:34 AM LACTA 2.2 01/19/2024 01:48 AM Troponin: No results for input(s): TROPONINI in the last 72 hours. Microbiology: Results Procedure Component Value Units Date/Time Culture, Respiratory [[id number]] (Abnormal) Collected: 09/28/242053 Order Status: Completed Specimen: Respiratory specimen from Tracheal Aspirate Updated: 09/30/24 0903 Specimen Description .TRACHEAL ASPIRATE Special Requests Site: Respiratory specimen Direct Exam < 10 EPITHELIAL CELLS/LPF >10, <25 NEUTROPHILS/LPF FEW GRAM POSITIVE COCCI IN PAIRS Culture NORMAL RESPIRATORY AYDEN LIGHT GROWTH MRSA DNA Probe, Nasal [[id number]] Collected: 09/28/241637 Order Status: Completed Specimen: Nares from Nasal Updated: 09/29/24 0856 Specimen Description .NASAL SWAB MRSA, DNA, Nasal NEGATIVE Comment: NEGATIVE: MRSA DNA not detected by nucleic acid amplification. Results should be used as an adjunct to nosocomial control efforts to identify patients needing enhanced precautions. The test is not intended to identify patients with staphylococcal infections. Results should not be used to guide or monitor treatment for MRSA infections. LEGIONELLA ANTIGEN, URINE [[id number]] Collected: 09/28/241624 Order Status: Completed Specimen: Urine Updated: 09/28/241756 Legionella Pneumophilia Ag, Urine NEGATIVE Comment: L. pneumophila serogroup 1 antigen not detected. A negative result does not exclude infection with Leginella pnemophila serogroup 1 nor does it rule out other microbial-caused respiratory infections of disease caused by other serogroups of Legionella pneumophila. Strep Pneumoniae Antigen [[id number]] Collected: 09/28/241623 Order Status: Completed Specimen: Urine, clean catch Updated: 09/28/241754 Source .URINE Strep pneumo Ag NEGATIVE Comment: Strep pneumoniae antigen not detected Respiratory Panel, Molecular, with COVID-19 (Restricted: peds pts or suitable admitted adults) [[id number]] Collected: 09/28/24 1620 Order Status: Completed Specimen: Respiratory specimen from Nasopharyngeal Swab Updated: 09/28/241827 Specimen Description .NASOPHARYNGEAL SWAB Adenovirus PCR Not [...] Performed by multiplexed nucleic acid assay. Culture, Blood 1 [[id number]] (Abnormal) (Susceptibility) Collected: 09/28/2439 Order Status: Completed Specimen: Blood Updated: 10/01/24824 Specimen Description .BLOOD Special Requests 20ml rac Culture POSITIVE Blood Culture DIRECT GRAM STAIN FROM BOTTLE: GRAM POSITIVE COCCI AND GPCB Streptococcus species (not S. agalactiae (Group B), S. pneumoniae, or S. pyogenes (Group A)) Methodology- Polymerase Chain Reaction (PCR) Detected: Coagulase negative Staphylococcus species (not S.epidermidis, or S. lugdunensis) Methodology- Polymerase Chain Reaction (PCR) ENTEROCOCCUS AVIUM Identification by MALDI-TOF STAPHYLOCOCCUS SPECIES, COAGULASE NEGATIVE A single positive blood culture of coagulase negative Staphylocci, diphtheroids,micrococci, Cutibacterium, viridans Streptocci, Bacillus, or Lactobacillus species should be interpreted with caution and viewed as a likely skin contaminant. (NOTE) Direct Gram Stain from bottle result called to and read back by:YECENIA JOHNSON RN, [facility], 09/29/24 0745, RB DJR Susceptibility Enterococcus avium BACTERIAL SUSCEPTIBILITY PANEL MARINE ampicillin <=2 Sensitive Gentamicin, High Level Sensitive Streptomycin, Hi Level Sensitive vancomycin <=0.5 Sensitive Culture, Blood 2 [[id number]] Collected: 09/28/24 0834 Order Status: Completed Specimen: Blood Updated: 10/01/24 0711 Specimen Description .BLOOD Special Requests 20ML RIGHT WRIST Culture NO GROWTH 3 DAYS Radiology/Imaging: US RENAL COMPLETE Result Date: 09/29/2024 1. No evidence of hydronephrosis. 2. Mildly hyperechoic kidneys bilaterally suggesting medical renal disease. 3. Unremarkable appearance of the bladder. A Lin catheter is in place. XR ABDOMEN FOR NG/OG/NE TUBE PLACEMENT Result Date: 09/28/2024 Enteric tube appears to be in appropriate position. XR CHEST PORTABLE Result Date: 09/28/2024 No acute cardiopulmonary process. Endotracheal tube with the tip in the midtrachea. CT CHEST ABDOMEN PELVIS W CONTRAST Additional Contrast? None Result Date: 09/28/2024 Few ground-glass opacities laterally in the left lung concerning for an infectious process. Trace amount of fluid and potential inflammation adjacent to the pancreas concerning for pancreatitis. CTA HEAD NECK W CONTRAST Result Date: 09/28/2024 No significant stenosis or evidence for large vessel occlusion. Few partially visualized ground-glass opacities in the left lung concerning for pneumonia. CT HEAD WO CONTRAST Result Date: 09/28/2024 No acute intracranial abnormality. Remote right parietal lobe infarct. MRI brain 09/30/24: IMPRESSION: 1. Abnormal signal intensity within the cortex and subcortical white matter of the right parietal lobe, right temporal lobe and right occipital lobe in a distribution similar to the findings on the previous exam from 01/22/2024. Differential considerations include an encephalitis, postictal edema or asymmetric PRES (an uncommon presentation). 2. Punctate acute infarct within the cortex of the right parietal lobe. ASSESSMENT: Patient Active Problem List Diagnosis Date Noted NSTEMI (non-ST elevated myocardial infarction) ([facility]) 09/29/2024 DKA, type 2, not at goal ([facility]) 09/28/2024 Acute hypoxemic respiratory failure 09/28/2024 Central apnea 01/22/2024 Acute metabolic encephalopathy 01/19/2024 Hypertensive emergency 01/19/2024 Fever 01/19/2024 Altered mental status 01/19/2024 Encephalopathy acute 01/19/2024 Hypertensive urgency 01/19/2024 Lactic acidosis 01/19/2024 Bacteremia due to Staphylococcus aureus Sinus tachycardia Mild malnutrition ([facility]) 10/28/2021 Diabetic acidosis without coma ([facility]) 10/27/2021 PLAN: WEAN PER PROTOCOL: [] No [x] Yes [] N/A ICU PROPHYLAXIS: Stress ulcer: [x] PPI Agent [] [id number] [] Sucralfate [] Other: VTE: [] Enoxaparin [x] Unfract. Heparin Subcut [] EPC Cuffs NUTRITION: [] NPO [x] Tube Feeding (Specify: ) [] TPN [] PO CONSULTATION NEEDED: [] No [x] Yes TRANSFER OUT OF ICU: [x] No [] Yes Fluids: NS @ 100 ml/hr with total fluid goal of 125 mL/hr Feeding: TF @ goal 50 Analgesics: Tylenol PRN Sedation: Propofol Thrombo-prophylaxis: Hep SC Mobilization: PT/OT Head Up: Yes Hemodynamics: Stable, no pressor support Ulcer Prophylaxis: Protonix Glycemic Control: HDSS/ Lantus 25 Spontaneous breathing trial: Daily Bowel management: Glycolax PRN Indwelling catheter: ETT, Lni, OG Drug De-escalation: Wean sedation with hopes to extubate Plan: Neuro: Currently on propofol Awake, alert, and following commands CT head showing remote parietal infarct Neurology consulted for stroke-like symptoms in ER MRI brain 09/30 showing abnormal signaling which could be encephalitis vs postictal edema vs PRES. Will follow-up further recommendations. Continue on aspirin and lipitor Resp: Intubated on ventilator AC/PC: 17/580/5/30% ABG: pH 7.48, CO2 34, pO2 143, bicarb 25 Plan for SBT and likely extubation CT chest concerning for possible pneumonia Respiratory culture growing GP cocci in pairs RPP, Mycoplasma, Legionella. MRSA negative CV: BP at [place] was 225/110 and started on cardene drip initially BP controlled, continue home Norvasc 5 mg and Coreg 25 mg BID Hydralazine 10 mg PRN, not needed Cardiology consulted for rising troponin (NSTEMI) > heparin gtt discontinued Echo on 09/29: EF of 60 to 65% with normal wall motion and moderate concentric hypertrophy Further ischemia workup once patient is discharged from ICU GI/Nutrition: Bedside swallow after extubation, advance diet as tolerated /Fluids/Electrolytes: ABHIJIT (baseline 1.4-1.6): Creatinine improved from 2.5 to 2.3. Nephrology following, continue normal saline at 100 mL/h with total fluid goal of 125 2.5 L urine output in last 24 hours Discontinue Lin after extubation Strict I/Os Heme: Hemoglobin stable ID: CT chest concerning for possible pneumonia Respiratory culture GP cocci in pairs Blood culture x 1 positive for Enterococcus avium, monitor for sensitivities Leukocytosis resolved Continue Zosyn, day 4 Endo: Last A1C was 12.0 in 01/2024 History of noncompliance with home insulin Continue high-dose sliding scale and Lantus 25 units, blood glucose levels have been controlled Prophylaxis: DVT: Heparin 5000 TID GI: None Dispo: Remain in ICU after extubation today, if remains stable can likely be transferred out of the ICU tomorrow Sirena Sanchez MD Emergency Medicine Resident, PGY 3 Critical Care Service 10/01/2024 11:51 AM Associated attestation - Rip Mcmullen MD - 10/01/2024 12:27 PM EST Attending Physician Statement I have discussed the case of Ortiz Gorman, including pertinent history and exam findings with theresident/fellow/medical student/LINE MANAGER/PA. I have seen and examined the patient and the swartz elements ofthe encounter have been performed by me. I agree with the assessment, plan and orders as documentedby the resident/fellow/medical student/LINE MANAGER/PA With changes made to the note as needed. Pt was seen during rounds. Review of Systems: In addition to the pertinent positives and negatives as stated within HPI and the review of systemsas documented in their notes, all other systems were reviewed when able to and are reported negative. Patient is on the ventilator on 30% oxygen Patient is weaning well with the shallow breathing index with a less than 105 We will extubate the patient ABG with acute respiratory and metabolic alkalosis Fluid balance +4.6 L Improving creatinine at 2.3 Anemia stable On subcutaneous heparin Total critical care time caring for this patient with life threatening, unstable organ failure, including direct patient contact, management of life support systems, review of data including imaging and labs, discussions with other team members and physicians at least 30 Min so far today, excludingprocedures. Rip Mcmullen MD 10/01/2024 12:27 PM * Addy Brown DO - 09/30/2024 1:13 PM EST [facility] Neurology IN-PATIENT SERVICE NEUROLOGY PROGRESS NOTE Date: 09/30/2024 Patient name: Ortiz Gorman Date of admission: 09/28/2024 Date of : 1975 Interval History: Continues to be on propofol sedation. He does attempt to follow commands by squeezing hand on right side greater than left. Currently on CPAP trial. Tentative plans for extubation soon. Underwent MRI brain which reveals similar abnormality as to 1 from January 2024 with density/diffusion restriction in the right parietal region. History of Present Illness: The patient is a 48 y.o. male who presents after being found down at home. . The patient was seen and examined and the chart was reviewed. Limited records in the chart, basedon outside hospital ED note patient was found down at home covered in feces this morning, confused and slurring his words. Reportedly his last known well was about 8:30 PM last night. He was taken tot ED at [facility]. Found to have significant elevation in his systolic blood pressure greater than 250s. Glucose was 820. Also noted to have ABHIJIT, elevated beta hydroxybutyrate, elevated troponins, lactic acidosis and ABG consistent with hypoxemia. He does have suppose it history of medication noncompliance and it is unclear if he has been off of his home medications recently. Patient was i ntubated for further airway protection and started on propofol drip. He was transferred to medical ICU at [facility]. Currently he is seen here at [place] ICU. Propofol drip is currently running. He had been on a Cardene drip for his elevated blood pressure but after being started on propofol blood pressures dropped on their own. Currently systolics in the 180s. Minimal response on examination at this time. Pupils are reactive, cough and gag is present. Withdrawing to pain in all 4 extremities. Patient was seen by our team back in January after initially coming in for headache and significant hypertension eventually being intubated. He had MRI brain which was abnormal showing hyperintensity in the perimesencephalic cistern region and bilateral cerebral convexities which could have been related to early meningitis versus remote subarachnoid hemorrhage. Patient underwent CSF studies which were noninfectious and no evidence of hemorrhage. Patient eventually improved and was extubated. He had repeat MRI brain done during that stay which showed improvement in the hyperintense regions although showed a new diffusion restriction in the right parietal lobe which could be related to stroke. Past Medical History: Past Medical History: Diagnosis Date Diabetes mellitus (HCC) Past Surgical History: Past Surgical History: Procedure Laterality Date APPENDECTOMY LEG SURGERY Right 10/30/2021 right intrarticular hip aspiration under fluro performed by Vincent Kuhn DO at [facility] OR Medications during admission: insulin glargine 25 Units SubCUTAneous QAM insulin lispro 0-16 Units SubCUTAneous 4x Daily AC & HS carvedilol 25 mg Oral BID WC heparin (porcine) 5,000 Units SubCUTAneous 3 times per day sodium chloride flush 5-40 mL IntraVENous 2 times per day piperacillin-tazobactam 3,375 mg IntraVENous Q8H atorvastatin 40 mg Oral Nightly aspirin 81 mg Oral Daily pantoprazole (PROTONIX) 40 mg in sodium chloride (PF) 0.9 % 10 mL injection 40 mg IntraVENous Daily Physical Exam: BP 135/74 Pulse 66 Temp 98.1 F (36.7 C) (Oral) Resp 12 Ht 1.778 m (5' 10 ) Wt 82.7 kg (182 lb 5.1 oz) SpO2 100% BMI 26.16 kg/m Temp (24hrs), Av F (37.2 C), Min:98.1 F (36.7 C), Max:99.5 F (37.5 C) Neurological examination: Mental status Patient is intubated. On sedation. Lethargic. No spontaneous eye opening to voice or painful stimulation. occasionally following commands. Cranial nerves Pupil response: Present Oculocephalic reflex: Present Corneal Reflex: Absent Facial grimace to pin: Present Breathing above vent: Present Motor and sensory function squeezes hands R hand > L hand (+) withdrawal to pin, deep nail bed pressure in all extremities Tone: Normal DTR 0/4 throughout Plantar response: Downgoing (-) Freitas's sign bilaterally Gait Not tested Diagnostics: Laboratory Testing: CBC: Recent Labs 09/28/24 1824 09/29/24 0305 09/30/24 0404 WBC 17.2* 17.6* 12.6* HGB 9.5* 8.8* 8.4* PLT 226 214 186 BMP: Recent Labs 09/29/24 0654 09/29/24 1150 09/30/24 0404 NA 127* 133* 132* K 3.5* 4.4 4.3 CL 99 101 101 CO2 19* 20 19* BUN 34* 39* 47* CREATININE 2.2* 2.4* 2.5* GLUCOSE 588* 258* 233* Lab Results Component Value Date CHOL 136 10/31/2021 HDL 31 (L) 10/31/2021 TRIG 62 01/20/2024 ALT 24 09/28/2024 AST 29 09/28/2024 TSH 0.58 01/19/2024 INR 1.1 09/28/2024 LABA1C 09/28/2024 Sent to reference laboratory. Separate report to follow. MG 2.2 09/29/2024 PHOS 4.5 09/29/2024 Imaging/Diagnostics: EEG: moderate diffuse encephalopathy MRI BRAIN WO CONTRAST (Preliminary) This result has not been signed. Information might be incomplete. Narrative EXAMINATION: MRI OF THE BRAIN WITHOUT CONTRAST 09/30/2024 11:32 am TECHNIQUE: Multiplanar multisequence MRI of the brain was performed without the administration of intravenous contrast. COMPARISON: 01/22/2024 HISTORY: ORDERING SYSTEM PROVIDED HISTORY: rule out PRES, stroke TECHNOLOGIST PROVIDED HISTORY: Rule out PRES, stroke Reason for Exam: rule out PRES, stroke Additional signs and symptoms: DKA, type 2, not at goal (HCC) FINDINGS: INTRACRANIAL STRUCTURES/VENTRICLES: There is abnormal increased T2/FLAIR signal intensity within the cortex and subcortical white matter of the right parietal lobe, right temporal lobe and right occipital lobe. There is a punctate focus of restricted diffusion within the cortex of the right parietal lobe. No acute intracranial hemorrhage. No mass effect or midline shift. No ventriculomegaly or abnormal extra-axial fluid collection present. The proximal portions of the [place] demonstrate normal flow voids. ORBITS: Limited evaluation of the orbits is unremarkable. SINUSES: Mild mucosal thickening is present within the paranasal sinuses. Trace fluid is present within the mastoid air cells. BONES/SOFT TISSUES: Bone marrow signal intensity is normal. Impression 1. Abnormal signal intensity within the cortex and subcortical white matter of the right parietal lobe, right temporal lobe and right occipital lobe in a distribution similar to the findings on the previous exam from 01/22/2024. Differential considerations include an encephalitis, postictal edema or asymmetric PRES (an uncommon presentation). 2. Punctate acute infarct within the cortex of the right parietal lobe. The findings were sent to the Radiology Results Communication Center at 1:34 pm on 09/30/2024 to be communicated to a licensed caregiver. Results for orders placed during the hospital encounter of 01/19/24 MRI BRAIN W WO CONTRAST Narrative EXAMINATION: [...] abnormal focus on brain or meningeal enhancement. No results found for this or any previous visit. Results for orders placed during the hospital encounter of 09/28/24 CT HEAD WO CONTRAST Narrative EXAMINATION: CT OF THE HEAD WITHOUT CONTRAST 09/28/2024 8:58 am TECHNIQUE: CT of the head was performed without the administration of intravenous contrast. Automated exposure control, iterative reconstruction, and/or weight based adjustment of the mA/kV was utilized to reduce the radiation dose to as low as reasonably achievable. COMPARISON: MRI brain performed 01/22/2024. HISTORY: ORDERING SYSTEM PROVIDED HISTORY: Stroke TECHNOLOGIST PROVIDED HISTORY: Stroke Decision Support Exception - unselect if not a suspected or confirmed emergency medical condition->Emergency Medical Condition (MA) FINDINGS: BRAIN/VENTRICLES: There is no acute intracranial hemorrhage, mass effect, or midline shift. There is satisfactory overall winkler-white matter differentiation. 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 The ventricular structures are symmetric and unremarkable. The infratentorial structures are unremarkable. ORBITS: The visualized portion of the orbits demonstrate no acute abnormality. SINUSES: The visualized paranasal sinuses and mastoid air cells demonstrate no acute abnormality. SOFT TISSUES/SKULL: No acute abnormality of the visualized skull or soft tissues. Impression No acute intracranial abnormality. Remote right parietal lobe infarct. CTA head and neck: No significant stenosis or LVO. I personally reviewed all of the above medications, clinical laboratory, imaging and other diagnostic tests. Impression: Acute metabolic encephalopathy in the setting of DKA, hypertensive encephalopathy Abnormal MRI brain with hyperintensity, diffusion restriction in R parietal region Similar admissions in the past Medication noncompliance Plan: Neurologically he is doing better, occasionally following commands. He is not moving the left side is much as his right. Unclear if this correlates with area of right parietal diffusion restriction on MRI because this was also seen back in January 2024. Cannot exclude postictal findings and possible Sammy's paralysis. EEG reveals moderate encephalopathy. Will hold off starting AED at this point. Continue to wean sedation and ventilator as tolerated. Will continue to monitor neuro exam once hopefully extubated. Strict blood pressure control Treatment of metabolic derangements as per primary team We will continue to follow. Addy Brown DO [facility] * Sussy Mtz MD - 09/30/2024 7:11 AM EST Images from the original note were not included. INTENSIVE CARE UNIT Resident Physician Progress Note Patient - Ortiz Gorman Date of Admission - 09/28/2024 2:35 PM Date of Evaluation - 09/30/2024 Room and Bed Number - 3002/3002-01 Hospital Day - 2 SUBJECTIVE: History of Presenting Illness History was obtained from chart review and unobtainable from patient due to being intubated & sedated. Ortiz Gorman is a 48 y.o. year male with a history of diabetes hypertension who presents as a transfer from [facility]. He was brought to the ED department after being found by his family in the bathroom covered in feces/urine and confused. As per the family, he's not compliant with his diabe liz and blood pressure medications. NIH score in the ED was 6. His blood pressure was 225/[address] head showed a remote parietal infarct. He was started on a cardene drip, and subsequently intubated in the ED due to worsening mentation. His blood sugar was 820, beta-hydroxybutyrate 2.64 and ABG showed pH of 7.38 with HCO3 of 20.6. CT chest also revealed ground glass opacities in the left lung concerning for pneumonia As per chart review, patient was admitted in January with a similar presentation of slurred speech, facial drop and was admitted to the ICU but ended leaving AMA. OVERNIGHT EVENTS: No acute events overnight. Afebrile and blood pressures under control TODAY: Still intubated & sedated, not responding to command 1.3L urine output in the last 24 hours Creatinine continues to increase, today is 2.5 - will get nephrology consult Resume NS fluids at 100 ml/hour Increase lantus to 25 units Plan for MRI today AWAKE & FOLLOWING COMMANDS: [x] No [] Yes SECRETIONS Amount: [] Small [] Moderate [] Large [] None Color: [] White [] Colored [] Bloody SEDATION: RAAS Score: [x] Propofol gtt [] Versed gtt [] Ativan gtt [] No Sedation PARALYZED: [] No [x] Yes VASOPRESSORS: [x] No [] Yes [] Levophed [] Dopamine [] Vasopressin [] Dobutamine [] Phenylephrine [] Epinephrine OBJECTIVE: VITAL SIGNS: BP 114/60 Pulse 80 Temp 98.3 F (36.8 C) (Bladder) Resp 18 Ht 1.778 m (5' 10 ) Wt 82.7 kg (182 lb 5.1 oz) SpO2 100% BMI 26.16 kg/m Tmax over 24 hours: Temp (24hrs), Av.3 F (37.4 C), Min:98.3 F (36.8 C), Max:99.6 F (37.6 C) Patient Vitals for the past 8 hrs: BP Temp Temp src Pulse Resp SpO2 Weight 09/30/24 07 -- -- -- 80 18 100 % -- 09/30/24 0700 114/60 -- -- 67 16 100 % -- 09/30/24 0630 114/61 -- -- 67 18 100 % -- 09/30/24 0600 120/65 -- -- 72 16 100 % -- 09/30/24 0533 -- -- -- -- -- -- 82.7 kg (182 lb 5.1 oz) 09/30/24 0530 (!) 166/87 -- -- 78 16 100 % -- 09/30/24 0500 (!) 165/100 -- -- 89 16 100 % -- 09/30/24 0446 -- -- -- 84 20 100 % -- 09/30/24 0430 (!) 179/99 -- -- 86 14 100 % -- 09/30/24 0400 97/72 98.3 F (36.8 C) Bladder 80 16 100 % -- 09/30/24 0330 127/73 -- -- 70 17 100 % -- 09/30/24 0310 -- -- -- 72 17 100 % -- 09/30/24 0300 (!) 154/80 -- -- 76 17 100 % -- 09/30/24 0230 (!) 157/89 -- -- 83 13 100 % -- 09/30/24 0200 (!) 177/92 -- -- 80 18 100 % -- 09/30/24 0130 127/76 -- -- 86 26 100 % -- 09/30/24 0100 (!) 144/78 -- -- 74 17 100 % -- 09/30/24 0030 138/76 -- -- 74 17 100 % -- Intake/Output Summary (Last 24 hours) at 09/30/2024 0822 Last data filed at 09/30/2024 0710 Gross per 24 hour Intake 1909.15 ml Output 1425 ml Net 484.15 ml Date 09/30/24 0000 - 09/30/24 2359 Shift 8343-4827 7831-1765 2789-4571 24 Hour Total INTAKE I.V.(mL/kg) 233.8(2.8) 233.8(2.8) NG/GT(mL/kg) 382(4.6) 382(4.6) IV Piggyback(mL/kg) 49.8(0.6) 49.8(0.6) Shift Total(mL/kg) 665.6(8) 665.6(8) OUTPUT Urine(mL/kg/hr) 575(0.9) 575 Shift Total(mL/kg) 575(7) 575(7) Weight (kg) 82.7 82.7 82.7 82.7 Wt Readings from Last 3 Encounters: 09/30/24 82.7 kg (182 lb 5.1 oz) 09/28/24 88 kg (194 lb 0.1 oz) 01/21/24 88.3 kg (194 lb 10.7 oz) Body mass index is 26.16 kg/m . PHYSICAL EXAM: GEN: intubated and unarousable EYES: pupils equal, round, and reactive to light HEENT: Normocephalic, without obvious abnormality LUNGS: On ventilator support, bilateral coarse breath sounds CV: regular rate and rhythm, normal S1 and S2, no S3 or S4, and no murmur noted ABDOMEN: No scars, normal bowel sounds, soft, non-distended, non-tender, no masses palpated NEURO:: Intubated & Sedated. Does not withdraw to pain EXTREMITIES: No pedal or leg edema, no calf swelling, no erythema, distal pulses intact MEDICATIONS: Scheduled Meds: insulin glargine 25 Units SubCUTAneous QAM insulin lispro 0-16 Units SubCUTAneous 4x Daily AC & HS carvedilol 25 mg Oral BID WC heparin (porcine) 5,000 Units SubCUTAneous 3 times per day sodium chloride flush 5-40 mL IntraVENous 2 times per day piperacillin-tazobactam 3,375 mg IntraVENous Q8H atorvastatin 40 mg Oral Nightly aspirin 81 mg Oral Daily pantoprazole (PROTONIX) 40 mg in sodium chloride (PF) 0.9 % 10 mL injection 40 mg IntraVENous Daily Continuous Infusions: sodium chloride 100 mL/hr at 09/30/24 0746 dextrose sodium chloride 10 mL/hr at 09/30/24 0710 propofol 30 mcg/kg/min (09/30/24 0710) sodium chloride Stopped (09/28/244) dextrose 5 % and 0.45 % NaCl Stopped (09/29/24 1200) insulin Stopped (09/29/24 1124) PRN Meds: glucose, 4 tablet, PRN dextrose bolus, 125 mL, PRN Or dextrose bolus, 250 mL, PRN glucagon (rDNA), 1 mg, PRN dextrose, , Continuous PRN hydrALAZINE, 10 mg, Q6H PRN sodium chloride flush, 5-40 mL, PRN sodium chloride, , PRN potassium chloride, 20 mEq, PRN Or potassium chloride, 10 mEq, PRN magnesium sulfate, 2,000 mg, PRN ondansetron, 4 mg, Q8H PRN Or ondansetron, 4 mg, Q6H PRN polyethylene glycol, 17 g, Daily PRN acetaminophen, 650 mg, Q6H PRN Or acetaminophen, 650 mg, Q6H PRN dextrose bolus, 125 mL, PRN Or dextrose bolus, 250 mL, PRN potassium chloride, 10 mEq, PRN magnesium sulfate, 2,000 mg, PRN sodium phosphate 15 mmol in sodium chloride 0.9 % 250 mL IVPB, 15 mmol, PRN dextrose 5 % and 0.45 % NaCl, , Continuous PRN labetalol, 5 mg, Q6H PRN SUPPORT DEVICES: [x] Ventilator [] BIPAP [] Nasal Cannula [] Room Air VENT SETTINGS (Comprehensive) (if applicable): Vent Information Ventilator ID: Servo i Equipment Changed: HME Ventilator Initiate: Yes Vent Mode: AC/PRVC Additional Respiratory Assessments Pulse: 80 Respirations: 18 SpO2: 100 % ETCO2 (mmHg): 28 mmHg Humidification Source: HME Circuit Condensation: Drained ABGs: Arterial Blood Gas result: pH 7.41; pCO2 38; pO2 161; HCO3 25; Lab Results Component Value Date/Time PHART 7.385 09/28/2024 09:42 AM [id number] 35.2 09/28/2024 09:42 AM PO2ART 72.2 09/28/2024 09:42 AM [id number] 20.6 09/28/2024 09:42 AM [id number] 94.5 09/28/2024 09:42 AM FIO2 30.0 09/30/2024 04:46 AM DATA: Complete Blood Count: Recent Labs 09/28/24 1824 09/29/24 0305 09/30/24 0404 WBC 17.2* 17.6* 12.6* RBC 3.33* 3.08* 2.91* HGB 9.5* 8.8* 8.4* HCT 28.8* 26.1* 26.2* MCV 86.5 84.7 90.0 MCH 28.5 28.6 28.9 MCHC 33.0 33.7 32.1 RDW 13.0 13.1 13.3 PLT 226 214 186 MPV 10.4 10.6 10.9 Last 3 Blood Glucose: Recent Labs 09/28/24 0834 09/28/24 1130 09/28/24 1513 09/28/24 1824 09/28/24 2216 09/29/24 0654 09/29/24 1150 09/30/24 0404 GLUCOSE 820* 657* 316* 241* 415* 588* 258* 233* PT/INR: Lab Results Component Value Date/Time PROTIME 14.3 09/28/2024 06:24 PM INR 1.1 09/28/2024 06:24 PM PTT: Lab Results Component Value Date/Time APTT 20.2 09/28/2024 06:24 PM Comprehensive Metabolic Profile: Recent Labs 09/28/24 0834 09/28/24 1130 09/29/24 0654 09/29/24 1150 09/30/24 0404 NA 128* < > 127* 133* 132* K 5.0 < > 3.5* 4.4 4.3 CL 87* < > 99 101 101 CO2 23 < > 19* 20 19* BUN 43* < > 34* 39* 47* CREATININE 2.0* < > 2.2* 2.4* 2.5* GLUCOSE 820* < > 588* 258* 233* CALCIUM 9.4 < > 7.1* 8.1* 7.8* BILITOT 0.4 -- -- -- -- ALKPHOS 192* -- -- -- -- AST 29 -- -- -- -- ALT 24 -- -- -- -- < > = values in this interval not displayed. Magnesium: Lab Results Component Value Date/Time MG 2.2 09/29/2024 11:50 AM MG 1.6 09/29/2024 06:54 AM MG 1.7 09/28/2024 10:16 PM Phosphorus: Lab Results Component Value Date/Time PHOS 4.5 09/29/2024 11:50 AM PHOS 3.4 09/29/2024 06:54 AM PHOS 3.2 09/28/2024 10:16 PM Ionized Calcium: Lab Results Component Value Date/Time CAION 1.20 09/29/2024 11:50 AM CAION 1.20 09/28/2024 03:13 PM CAION 1.13 01/19/2024 09:21 AM Urinalysis: Lab Results Component Value Date/Time NITRU NEGATIVE 09/28/2024 09:50 AM COLORU Yellow 09/28/2024 09:50 AM PHUR 6.5 09/28/2024 09:50 AM PHUR 5.5 01/19/2024 09:11 AM WBCUA 0 TO 2 09/28/2024 09:50 AM RBCUA 2 TO 5 09/28/2024 09:50 AM MUCUS NOT REPORTED 10/27/2021 12:50 PM TRICHOMONAS NOT REPORTED 10/27/2021 12:50 PM YEAST NOT REPORTED 10/27/2021 12:50 PM BACTERIA None 01/19/2024 09:11 AM LEUKOCYTESUR NEGATIVE 09/28/2024 09:50 AM UROBILINOGEN Normal 09/28/2024 09:50 AM BILIRUBINUR NEGATIVE 09/28/2024 09:50 AM GLUCOSEU 3+ 09/28/2024 09:50 AM KETUA 1+ 09/28/2024 09:50 AM AMORPHOUS NOT REPORTED 10/27/2021 12:50 PM HgBA1c: Lab Results Component Value Date/Time LABA1C 09/28/2024 03:13 PM Sent to reference laboratory. Separate report to follow. TSH: Lab Results Component Value Date/Time TSH 0.58 01/19/2024 07:38 AM Lactic Acid: Lab Results Component Value Date/Time LACTA 3.4 09/28/2024 11:29 AM LACTA 2.3 09/28/2024 08:34 AM LACTA 2.2 01/19/2024 01:48 AM Troponin: No results for input(s): TROPONINI in the last 72 hours. Microbiology: Results Procedure Component Value Units Date/Time Culture, Respiratory [[id number]] (Abnormal) Collected: 09/28/242053 Order Status: Completed Specimen: Respiratory specimen from Tracheal Aspirate Updated: 09/29/24 1211 Specimen Description .TRACHEAL ASPIRATE Special Requests Site: Respiratory specimen Direct Exam < 10 EPITHELIAL CELLS/LPF >10, <25 NEUTROPHILS/LPF FEW GRAM POSITIVE COCCI IN PAIRS Culture CULTURE IN PROGRESS MRSA DNA Probe, Nasal [[id number]] Collected: 09/28/24 1638 Order Status: Completed Specimen: Nares from Nasal Updated: 09/29/24 0856 Specimen Description .NASAL SWAB MRSA, DNA, Nasal NEGATIVE Comment: NEGATIVE: MRSA DNA not detected by nucleic acid amplification. Results should be used as an adjunct to nosocomial control efforts to identify patients needing enhanced precautions. The test is not intended to identify patients with staphylococcal infections. Results should not be used to guide or monitor treatment for MRSA infections. LEGIONELLA ANTIGEN, URINE [[id number]] Collected: 09/28/241624 Order Status: Completed Specimen: Urine Updated: 09/28/24 175 Legionella Pneumophilia Ag, Urine NEGATIVE Comment: L. pneumophila serogroup 1 antigen not detected. A negative result does not exclude infection with Leginella pnemophila serogroup 1 nor does it rule out other microbial-caused respiratory infections of disease caused by other serogroups of Legionella pneumophila. Strep Pneumoniae Antigen [[id number]] Collected: 09/28/24 162 Order Status: Completed Specimen: Urine, clean catch Updated: 09/28/24 175 Source .URINE Strep pneumo Ag NEGATIVE Comment: Strep pneumoniae antigen not detected Respiratory Panel, Molecular, with COVID-19 (Restricted: peds pts or suitable admitted adults) [[id number]] Collected: 09/28/24 162 Order Status: Completed Specimen: Respiratory specimen from Nasopharyngeal Swab Updated: 09/28/24 1828 Specimen Description .NASOPHARYNGEAL SWAB Adenovirus PCR Not [...] Performed by multiplexed nucleic acid assay. Culture, Blood 1 [[id number]] (Abnormal) Collected: 09/28/24 0839 Order Status: Completed Specimen: Blood Updated: 09/29/24 1430 Specimen Description .BLOOD Special Requests 20ml rac Culture POSITIVE Blood Culture DIRECT GRAM STAIN FROM BOTTLE: GRAM POSITIVE COCCI AND GPCB Streptococcus species (not S. agalactiae (Group B), S. pneumoniae, or S. pyogenes (Group A)) Methodology- Polymerase Chain Reaction (PCR) Detected: Coagulase negative Staphylococcus species (not S.epidermidis, or S. lugdunensis) Methodology- Polymerase Chain Reaction (PCR) (NOTE) Direct Gram Stain from bottle result called to and read back by:YECENIA JOHNSON RN, [facility], 09/29/24 0745, LAWANDA HERMAN Culture, Blood 2 [[id number]] Collected: 09/28/24 0834 Order Status: Completed Specimen: Blood Updated: 09/30/24 0741 Specimen Description .BLOOD Special Requests 20ML RIGHT WRIST Culture NO GROWTH 2 DAYS Radiology/Imaging: US RENAL COMPLETE Result Date: 09/29/2024 1. No evidence of hydronephrosis. 2. Mildly hyperechoic kidneys bilaterally suggesting medical renal disease. 3. Unremarkable appearance of the bladder. A Lin catheter is in place. XR ABDOMEN FOR NG/OG/NE TUBE PLACEMENT Result Date: 09/28/2024 Enteric tube appears to be in appropriate position. XR CHEST PORTABLE Result Date: 09/28/2024 No acute cardiopulmonary process. Endotracheal tube with the tip in the midtrachea. CT CHEST ABDOMEN PELVIS W CONTRAST Additional Contrast? None Result Date: 09/28/2024 Few ground-glass opacities laterally in the left lung concerning for an infectious process. Trace amount of fluid and potential inflammation adjacent to the pancreas concerning for pancreatitis. CTA HEAD NECK W CONTRAST Result Date: 09/28/2024 No significant stenosis or evidence for large vessel occlusion. Few partially visualized ground-glass opacities in the left lung concerning for pneumonia. CT HEAD WO CONTRAST Result Date: 09/28/2024 No acute intracranial abnormality. Remote right parietal lobe infarct. ASSESSMENT: Patient Active Problem List Diagnosis Date Noted NSTEMI (non-ST elevated myocardial infarction) ([facility]) 09/29/2024 DKA, type 2, not at goal ([facility]) 09/28/2024 Acute hypoxemic respiratory failure 09/28/2024 Central apnea 01/22/2024 Hypertensive encephalopathy 01/19/2024 Hypertensive emergency 01/19/2024 Fever 01/19/2024 Altered mental status 01/19/2024 Encephalopathy acute 01/19/2024 Hypertensive urgency 01/19/2024 Lactic acidosis 01/19/2024 Bacteremia due to Staphylococcus aureus Sinus tachycardia Mild malnutrition ([facility]) 10/28/2021 Diabetic acidosis without coma ([facility]) 10/27/2021 PLAN: WEAN PER PROTOCOL: [] No [x] Yes [] N/A ICU PROPHYLAXIS: Stress ulcer: [x] PPI Agent [] [id number] [] Sucralfate [] Other: VTE: [] Enoxaparin [] Unfract. Heparin Subcut [] EPC Cuffs NUTRITION: [] NPO [] Tube Feeding (Specify: ) [] TPN [x] PO CONSULTATION NEEDED: [] No [] Yes TRANSFER OUT OF ICU: [x] No [] Yes Plan: Neuro: CT head showing remote parietal infarct Neurology consulted. Appreciate further recommendations MRI brain today to evaluate for PRES Continue on aspirin and lipitor Resp: Intubated on ventilator CT chest concerning for possible pneumonia Vent settings: AC/PRVC. PEEP: 5, Tidal Volume: 580, RR: 17 Respiratory culture growing GP cocci in pairs RPP, Mycoplasma, Legionella. MRSA negative Vent Information Ventilator ID: Servo i Vent Mode: AC/PRVC CV: BP at [place] was 225/110 and started on cardene drip Today BP well-controlled at 114/60 D/C Cardene drip; increase home coreg to 25 BID Hydralazine 10 mg PRN Cardiology consulted for rising troponin (NSTEMI) -okay to stop heparin drip Echo on 09/29: EF of 60 to 65% with normal wall motion and moderate concentric hypertrophy Further ischemia workup once patient is discharged from ICU GI/Nutrition: Tube feeds initiated /Fluids/Electrolytes: Na 132, Potassium 4.3, HCO3 19 Creatinine continuing to increase: 2.5 today -nephrology consult placed 1.3 L urine output in last 24 hours Renal US unremarkable Resume normal saline at 100 mL/h Strict I/Os Heme: Leukocytosis improving WBC 12.6, hemoglobin 8.4, platelets 186 ID: Pneumonia work up (RPP, S. Pneumo, Legionella, Mycoplasma negative 1 blood culture from-growing Streptococcus & Staph species Respiratory culture GP cocci in pairs Elevated CRP Continue Zosyn, stop Zyvox as MRSA is negative Lactic acid down-trending. Endo: Last A1C was 12.0 in 01/2024 History of noncompliance with home insulin Continues to have slightly elevated blood sugars. Will increase Lantus to 25 units and continue high-dose sliding scale Prophylaxis: DVT: Heparin 5000 TID GI: Protonix Dispo: TBD Sussy Mtz MD Family Medicine PGY2 Critical Care Service 09/30/2024 8:22 AM Associated attestation - Stanley Mckenzie MD - 09/30/2024 6:27 PM EST Critical Care Attending Physician Addendum: I have personally seen and examined Ortiz Gorman with the resident and the swartz elements of all parts of the encounter were performed by me. Patient was reassessed on more than one occasion, when required. I reviewed the interval history, interpreted all available radiographic, laboratory and physiologic data at the time of service. I agree with the assessment and plan as documented by resident.Any addendum including requisite additions/deletions are as noted below. Critical care time (excluding procedures) of more than 30 minutes was spent in coordination of care during bedside rounds and discussion of patient care in detail. Stanley Mckenzie MD 09/30/2024 Pulmonary and Critical Care Medicine * William Man MD - 09/30/2024 6:53 AM EST Images from the original note were not included. Ailyn Landscaping Manager Progress Note Date: 09/30/2024 Patient name: Ortiz Gorman Date of admission: 09/28/2024 2:35 PM Date of : 1975 PCP: Vincent Winters MD Subjective: Patient seen and examined at bedside. Overnight events noted. Doing well from the cardiac standpoint. Still intubated and hemodynamically stable Medications: Scheduled Meds: insulin glargine 20 Units SubCUTAneous QAM insulin lispro 0-16 Units SubCUTAneous 4x Daily AC & HS carvedilol 25 mg Oral BID WC heparin (porcine) 5,000 Units SubCUTAneous 3 times per day sodium chloride flush 5-40 mL IntraVENous 2 times per day piperacillin-tazobactam 3,375 mg IntraVENous Q8H atorvastatin 40 mg Oral Nightly aspirin 81 mg Oral Daily pantoprazole (PROTONIX) 40 mg in sodium chloride (PF) 0.9 % 10 mL injection 40 mg IntraVENous Daily Continuous Infusions: dextrose sodium chloride Stopped (09/28/24 2338) propofol 30 mcg/kg/min (09/30/24 0423) sodium chloride Stopped (09/28/24 2124) dextrose 5 % and 0.45 % NaCl Stopped (09/29/24 1200) insulin Stopped (09/29/24 1124) CBC: Recent Labs 09/28/24 1824 09/29/24 0305 09/30/24 0404 WBC 17.2* 17.6* 12.6* HGB 9.5* 8.8* 8.4* PLT 226 214 186 BMP: Recent Labs 09/29/24 0654 09/29/24 1150 09/30/24 0404 NA 127* 133* 132* K 3.5* 4.4 4.3 CL 99 101 101 CO2 19* 20 19* BUN 34* 39* 47* CREATININE 2.2* 2.4* 2.5* GLUCOSE 588* 258* 233* Hepatic: Recent Labs 09/28/24 0834 AST 29 ALT 24 BILITOT 0.4 ALKPHOS 192* Objective: Vitals: BP 120/65 Pulse 72 Temp 98.3 F (36.8 C) (Bladder) Resp 16 Ht 1.778 m (5' 10 ) Wt 82.7 kg (182 lb 5.1 oz) SpO2 100% BMI 26.16 kg/m Constitutional and General Appearance: intubated, sedated HEENT: atraumatic, normocephalic. Respiratory: Clear to auscultation bilaterally Cardiovascular: Regular S1 and S2. No JVD Peripheral pulses are symmetrical and full Abdomen: Soft, non tender Bowel sounds present Extremities: No Le edema or cyanosis EKG: Results for orders placed or performed during the hospital encounter of 09/28/24 EKG 12 Lead Result Value Ref Range Ventricular Rate 111 BPM Atrial Rate 111 BPM P-R Interval 166 ms QRS Duration 82 ms Q-T Interval 336 ms QTc Calculation (Bazett) 456 ms P [place] 79 degrees R [place] 68 degrees T [place] 68 degrees Narrative Sinus tachycardia Possible Left atrial enlargement Nonspecific ST abnormality Abnormal ECG No previous ECGs available Echo: Results for orders placed or performed during the hospital encounter of 10/27/21 Echocardiogram complete 2D with doppler with color Result Value Ref Range Left Ventricular Ejection Fraction 60 LVEF MODALITY ECHO Narrative [facility] Transthoracic Echocardiography Report (TTE) Patient Name SHERIF Date of Study 10/30/2021 ORTIZ Quezada Date of 1975 Gender Male Age 45 year(s) Race Room Number I307 Height: 71 inch, 180.34 cm Corporate ID [id number] Weight: 174 pounds, 78.9 kg # Patient Acct [id number] BSA: 1.99 m^2 BMI: 24.27 # kg/m^2 MR # [id number] Supervisor [employer] PNP [employer] Interpreting Physician Sammie Sher Fellow Referring Nurse Sarita Arzola CNP Practitioner Interpreting Referring Physician Fellow Type of Study TTE procedure:2D Echocardiogram, M-Mode, Doppler, Color Doppler. Procedure Date Date: 10/30/2021 Start: 02:34 PM Study Location: [facility] Indications:Tachycardia. History / Tech. Comments: Dx: tachycardia, infection Patient Status: Inpatient Height: 71 inches Weight: 174 pounds BSA: 1.99 m^2 BMI: 24.27 kg/m^2 CONCLUSIONS Summary Global left ventricular systolic function appears preserved with an estimated ejection fraction of >60%. The left ventricular cavity size is within normal limits and the left ventricular wall thickness is mildly increased. No definite specific wall motion abnormalities were identified. No significant valvular abnormalities. Evidence of mild diastolic dysfunction is seen. No prior studies were available for comparison. No evidence of infective endocarditis was identified in this study. Consider KEELEY if clinically indicated. Signature FINDINGS Left Atrium Left atrium is normal in size. Left Ventricle Global left ventricular systolic function appears preserved with an estimated ejection fraction of >60%. The left ventricular cavity size is within normal limits and the left ventricular wall thickness is mildly increased. No definite specific wall motion abnormalities were identified. Right Atrium Right atrium is normal in size. Right Ventricle Normal right ventricular size and function. Mitral Valve Normal mitral valve structure and function. Aortic Valve Normal aortic valve structure and function without stenosis or regurgitation. Tricuspid Valve Normal tricuspid valve structure and function. Pulmonic Valve The pulmonic valve is normal in structure. Pericardial Effusion No significant pericardial effusion is seen. Miscellaneous Evidence of mild diastolic dysfunction is seen. Normal aortic root dimension. M-mode / 2D Measurements & Calculations: LVIDd:4.42 cm(3.7 - 5.6 cm) Diastolic Volume:86.23 ml LVIDs:3.13 cm(2.2 - 4.0 cm) Systolic Volume:30.7 ml IVSd:1.06 cm(0.6 - 1.1 cm) Aortic Root:3.35 cm(2.0 - 3.7 cm) LVPWd:1.04 cm(0.6 - 1.1 cm) LA Dimension: 2.48 cm(1.9 - 4.0 cm) Fractional Shortenin.19 % LA volume/Index: 46.2 ml /23m^2 Calculated LVEF (%): 64.4 % AV Cusp Separation: 2.11 cm Mitral: Aortic Valve Area (P1/2-Time): 5.35 cm^2 Peak Velocity: 0.98 m/s Peak E-Wave: 0.66 m/s Mean Velocity: 0.74 m/s Peak A-Wave: 0.56 m/s Peak Gradient: 3.82 mmHg E/A Ratio: 1.18 Mean Gradient: 2.43 mmHg Peak Gradient: 1.77 mmHg Acceleration Time: 49.73 msec P1/2t: 41.13 msec AV VTI: 17.11 cm Diastology / Tissue Doppler Lateral Wall E' velocity:0.11 m/s Lateral Wall E/E':6.51 09/28/24 ECHO (TTE) COMPLETE (PRN CONTRAST/BUBBLE/STRAIN/3D) 09/29/2024 10:25 PM (Final) Interpretation Summary Left Ventricle: Normal left ventricular systolic function with a visually estimated EF of 60 - 65%.EF by 2D Simpsons Biplane is 65%. Left ventricle size is normal. Increased wall thickness. Findingsconsistent with moderate concentric hypertrophy. Normal wall motion. Global longitudinal strain is -16.7%. Normal diastolic function. Aortic Valve: Trileaflet valve. Mitral Valve: Mild regurgitation. Pericardium: Trivial pericardial effusion present. Image quality is adequate. Signed by: Kika Raymond DO on 09/29/2024 10:25 PM Hospital Problems Last Modified POA * (Principal) DKA, type 2, not at goal ([facility]) 09/28/2024 Yes NSTEMI (non-ST elevated myocardial infarction) ([facility]) 09/29/2024 Yes Acute hypoxemic respiratory failure 09/28/2024 Yes Assessment: Elevated Troponins- likely type II MS HTN emergency- off cardene drip now AMS-intubated ABHIJIT Sepsis 2/2 pneumonia DKA Normal TTE 01/2024 Plan: TTE shows no concerning acute abnormalities, therefore, will perform stress test once out of ICU and before discharge. Amlodipine added for HTN Rest of cares per primary team. Please follow the rounding attending's attestation for final recommendations. Attending Physician Statement I have discussed the case of Ortiz Gorman including pertinent history and exam findings with the student/resident/fellow. I have seen and examined the patient and the swartz elements of the encounter have been performed by me. I agree with the assessment, plan and orders as documented by the resident With changes made to the note. . [place] Landscaping Manager [phone] * Addy Brown DO - 09/29/2024 2:08 PM EST [facility] Neurology IN-PATIENT SERVICE NEUROLOGY PROGRESS NOTE Date: 09/29/2024 Patient name: Ortiz Gorman Date of admission: 09/28/2024 Date of : 1975 Interval History: Currently intubated on propofol sedation. Pending MRI brain. Pending EEG. SBP Ranging between 160-200s. History of Present Illness: The patient is a 48 y.o. male who presents after being found down at home. . The patient was seen and examined and the chart was reviewed. Limited records in the chart, basedon outside hospital ED note patient was found down at home covered in feces this morning, confused and slurring his words. Reportedly his last known well was about 8:30 PM last night. He was taken tot ED at [facility]. Found to have significant elevation in his systolic blood pressure greater than 250s. Glucose was 820. Also noted to have ABHIJIT, elevated beta hydroxybutyrate, elevated troponins, lactic acidosis and ABG consistent with hypoxemia. He does have suppose it history of medication noncompliance and it is unclear if he has been off of his home medications recently. Patient was i ntubated for further airway protection and started on propofol drip. He was transferred to medical ICU at [facility]. Currently he is seen here at [place] ICU. Propofol drip is currently running. He had been on a Cardene drip for his elevated blood pressure but after being started on propofol blood pressures dropped on their own. Currently systolics in the 180s. Minimal response on examination at this time. Pupils are reactive, cough and gag is present. Withdrawing to pain in all 4 extremities. Patient was seen by our team back in January after initially coming in for headache and significant hypertension eventually being intubated. He had MRI brain which was abnormal showing hyperintensity in the perimesencephalic cistern region and bilateral cerebral convexities which could have been related to early meningitis versus remote subarachnoid hemorrhage. Patient underwent CSF studies which were noninfectious and no evidence of hemorrhage. Patient eventually improved and was extubated. He had repeat MRI brain done during that stay which showed improvement in the hyperintense regions although showed a new diffusion restriction in the right parietal lobe which could be related to stroke. Past Medical History: Past Medical History: Diagnosis Date Diabetes mellitus (HCC) Past Surgical History: Past Surgical History: Procedure Laterality Date APPENDECTOMY LEG SURGERY Right 10/30/2021 right intrarticular hip aspiration under fluro performed by Vincent Kuhn DO at [facility] OR Medications during admission: insulin glargine 20 Units SubCUTAneous QAM insulin lispro 0-16 Units SubCUTAneous 4x Daily AC & HS carvedilol 25 mg Oral BID WC sodium chloride flush 5-40 mL IntraVENous 2 times per day piperacillin-tazobactam 3,375 mg IntraVENous Q8H atorvastatin 40 mg Oral Nightly aspirin 81 mg Oral Daily pantoprazole (PROTONIX) 40 mg in sodium chloride (PF) 0.9 % 10 mL injection 40 mg IntraVENous Daily Physical Exam: BP (!) 163/89 Pulse 90 Temp 99.6 F (37.6 C) Resp 18 Ht 1.778 m (5' 10 ) Wt 81.5 kg (179 lb 10.8 oz) SpO2 100% BMI 25.78 kg/m Temp (24hrs), Av.8 F (37.7 C), Min:99 F (37.2 C), Max:101.4 F (38.6 C) Neurological examination: Mental status Patient is intubated. On sedation. Comatose. No spontaneous eye opening to voice or painful stimulation. Not following commands. Cranial nerves Pupil response: Present Oculocephalic reflex: Present Corneal Reflex: Absent Facial grimace to pin: Present Breathing above vent: Present Motor and sensory function (+) withdrawal to pin, deep nail bed pressure in all extremities Tone: Normal DTR 0/4 throughout Plantar response: Downgoing (-) Freitas's sign bilaterally Gait Not tested Diagnostics: Laboratory Testing: CBC: Recent Labs 09/28/24 1513 09/28/24 1824 09/29/24 0305 WBC 17.1* 17.2* 17.6* HGB 9.6* 9.5* 8.8* PLT 240 226 214 BMP: Recent Labs 09/28/24 2216 09/29/24 0654 09/29/24 1150 NA 134* 127* 133* K 3.8 3.5* 4.4 CL 102 99 101 CO2 21 19* 20 BUN 37* 34* 39* CREATININE 2.2* 2.2* 2.4* GLUCOSE 415* 588* 258* Lab Results Component Value Date CHOL 136 10/31/2021 HDL 31 (L) 10/31/2021 TRIG 62 01/20/2024 ALT 24 09/28/2024 AST 29 09/28/2024 TSH 0.58 01/19/2024 INR 1.1 09/28/2024 LABA1C 09/28/2024 Sent to reference laboratory. Separate report to follow. MG 2.2 09/29/2024 PHOS 4.5 09/29/2024 Imaging/Diagnostics: MRI BRAIN WO CONTRAST Narrative EXAMINATION: MRI OF THE BRAIN WITHOUT CONTRAST [...] on abnormal MRI from 01/18 FINDINGS: INTRACRANIAL STRUCTURES/VENTRICLES: Gyriform cortical based restriction of diffusion in [...] tissues demonstrate no acute abnormality. Impression 1. Interval increase in prominence of cortical [...] resolved. Correlation with CSF analysis is advised. Results for orders placed during the hospital encounter of 01/19/24 MRI BRAIN W WO CONTRAST Narrative EXAMINATION: [...] abnormal focus on brain or meningeal enhancement. No results found for this or any previous visit. Results for orders placed during the hospital encounter of 09/28/24 CT HEAD WO CONTRAST Narrative EXAMINATION: CT OF THE HEAD WITHOUT CONTRAST 09/28/2024 8:58 am TECHNIQUE: CT of the head was performed without the administration of intravenous contrast. Automated exposure control, iterative reconstruction, and/or weight based adjustment of the mA/kV was utilized to reduce the radiation dose to as low as reasonably achievable. COMPARISON: MRI brain performed 01/22/2024. HISTORY: ORDERING SYSTEM PROVIDED HISTORY: Stroke TECHNOLOGIST PROVIDED HISTORY: Stroke Decision Support Exception - unselect if not a suspected or confirmed emergency medical condition->Emergency Medical Condition (MA) FINDINGS: BRAIN/VENTRICLES: There is no acute intracranial hemorrhage, mass effect, or midline shift. There is satisfactory overall winkler-white matter differentiation. 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 The ventricular structures are symmetric and unremarkable. The infratentorial structures are unremarkable. ORBITS: The visualized portion of the orbits demonstrate no acute abnormality. SINUSES: The visualized paranasal sinuses and mastoid air cells demonstrate no acute abnormality. SOFT TISSUES/SKULL: No acute abnormality of the visualized skull or soft tissues. Impression No acute intracranial abnormality. Remote right parietal lobe infarct. I personally reviewed all of the above medications, clinical laboratory, imaging and other diagnostic tests. Impression: Acute metabolic encephalopathy in the setting of DKA, hypertensive encephalopathy History of abnormal MRI brain with hyperintensity in the perimesencephalic region, bilateral cerebral convexities of unclear etiology Similar admissions in the past Medication noncompliance Plan: Will need more strict BP control Awaiting MRI Brain EEG Pending Continue daily ASA treatment of metabolic derangements as per primary team Will follow Addy Brown DO [facility] [place] [facility] * Sunshine Carmona RD - 09/29/2024 1:14 PM EST Comprehensive Nutrition Assessment Type and Reason for Visit: Initial (Ventilated) Nutrition Recommendations/Plan: Continue NPO as medically necessary Increase TF goal to 50 mL/hr to closer meet pt's EER, new goal to provide 1800 kcals and 99 gm PRO/d Monitor POC, meds, labs, wt, TF tolerance and adequacy Malnutrition Assessment: Malnutrition Status: Insufficient data (09/29/24 1313) Context: Chronic Illness Findings of the 6 clinical characteristics of malnutrition: Energy Intake: Unable to assess Weight Loss: Mild weight loss Body Fat Loss: Unable to assess Muscle Mass Loss: Unable to assess Fluid Accumulation: Mild Extremities, Generalized Procurement Technician Strength: Not Performed Nutrition Assessment: Pt currently ventilated. Life flighted from [place] for DKA. Adm BG 820 mg/dL. Found by dtr at home covered in feces and urine, pt was AMS. RD not consulted for TF, order placed by resident. Pt currently on continuous NG feeds of diabetic (Glucerna 1.5) with goal of 40 mL/hr to provide 1440 kcals and 79 gm PRO per day. Nutrition Related Findings: Meds/labs reviewed Wound Type: None Current Nutrition Intake & Therapies: Average Meal Intake: NPO Average Supplements Intake: NPO Diet NPO ADULT TUBE FEEDING; Nasogastric; Diabetic; Continuous; 10; Yes; 10; Q 4 hours; 50; 30; Q 4 hours Current Tube Feeding (TF) Orders: Feeding Route: Nasogastric Formula: Diabetic Schedule: Continuous Feeding Regimen: 40 mL/hr Additives/Modulars: None Water Flushes: 30 mL Q 3 hrs Current TF Provides: 1440 kcals, 79 gm PRO, 909 mL free water Anthropometric Measures: Height: 177.8 cm (5' 10 ) [place] Body Weight (IBW): 166 lbs (75 kg) Admission Body Weight: 81.2 kg (179 lb) Current Body Weight: 81.2 kg (179 lb), 107.8 % IBW. Weight Source: Bed scale Current BMI (kg/m2): 25.7 Weight Adjustment For: No Adjustment BMI Categories: Overweight (BMI 25.0-29.9) Estimated Daily Nutrient Needs: Energy Requirements Based On: Formula Weight Used for Energy Requirements: Current Energy (kcal/day): 1074-2361 kcal/d Weight Used for Protein Requirements: Current Protein (g/day): 80-120 gm/d Method Used for Fluid Requirements: 1 ml/kcal Fluid (ml/day): or per physician Nutrition Diagnosis: Inadequate oral intake related to impaired respiratory function as evidenced by NPO or clear liquidstatus due to medical condition, intubation, nutrition support - enteral nutrition Nutrition Interventions: Food and/or Nutrient Delivery: Continue NPO, Modify Tube Feeding Nutrition Education/Counseling: No recommendation at this time Coordination of Nutrition Care: Continue to monitor while inpatient Goals: Goals: Maintain adequate nutrition status, by next RD assessment Type of Goal: New goal Nutrition Monitoring and Evaluation: Behavioral-Environmental Outcomes: None Identified Food/Nutrient Intake Outcomes: Diet Advancement/Tolerance, Enteral Nutrition Intake/Tolerance Physical Signs/Symptoms Outcomes: Biochemical Data, Hemodynamic Status, Weight, Fluid Status or Edema Discharge Planning: Too soon to determine Sunshine Carmona MS, RDN, LDN Weekend Contact: * Sussy Mtz MD - 09/29/2024 7:15 AM EST Images from the original note were not included. INTENSIVE CARE UNIT Resident Physician Progress Note Patient - Ortiz Gorman Date of Admission - 09/28/2024 2:35 PM Date of Evaluation - 09/29/2024 Room and Bed Number - 3002/3002-01 Hospital Day - 1 SUBJECTIVE: History of Presenting Illness History was obtained from chart review and unobtainable from patient due to being intubated & sedated. Ortiz Gorman is a 48 y.o. year male with a history of diabetes hypertension who presents as a transfer [facility]. He was brought to the ED department after being found by his family in the bathroom covered in feces/urine and confused. As per the family, he's not compliant with his diabe liz and blood pressure medications. NIH score in the ED was 6. His blood pressure was 225/[address] head showed a remote parietal infarct. He was started on a cardene drip, and subsequently intubated in the ED due to worsening mentation. His blood sugar was 820, beta-hydroxybutyrate 2.64 and ABG showed pH of 7.38 with HCO3 of 20.6. CT chest also revealed ground glass opacities in the left lung concerning for pneumonia As per chart review, patient was admitted in January with a similar presentation of slurred speech, facial drop and was admitted to the ICU but ended leaving AMA. OVERNIGHT EVENTS: Patient was febrile overnight and also hypertensive TODAY: Still intubated & sedated, not responding to command 1.2 L urine output in the last 24 hours Blood glucose 149 this morning Gap closed 2x - Bridged with resumption of home dose lantus Received call from [facility] [place] lab stating one of the blood cultures has been positive, but unsurewhich organism AWAKE & FOLLOWING COMMANDS: [x] No [] Yes SECRETIONS Amount: [] Small [] Moderate [] Large [] None Color: [] White [] Colored [] Bloody SEDATION: RAAS Score: [x] Propofol gtt [] Versed gtt [] Ativan gtt [] No Sedation PARALYZED: [] No [x] Yes VASOPRESSORS: [x] No [] Yes [] Levophed [] Dopamine [] Vasopressin [] Dobutamine [] Phenylephrine [] Epinephrine OBJECTIVE: VITAL SIGNS: BP (!) 178/94 Pulse 93 Temp 99.8 F (37.7 C) (Bladder) Resp 17 Wt 81.5 kg (179 lb 10.8 oz) SpO2 100% BMI 25.78 kg/m Tmax over 24 hours: Temp (24hrs), Av.5 F (38.1 C), Min:99.7 F (37.6 C), Max:101.4 F (38.6 C) Patient Vitals for the past 8 hrs: BP Temp Temp src Pulse Resp SpO2 Weight 09/29/24 0700 (!) 178/94 -- -- 93 17 100 % -- 09/29/24 0635 (!) 170/92 -- -- 91 17 100 % -- 09/29/24 0630 (!) 173/93 -- -- 90 17 100 % -- 09/29/24 0600 (!) 158/84 -- -- 93 15 100 % -- 09/29/24 0530 (!) 143/72 -- -- 86 15 100 % -- 09/29/24 0515 -- -- -- -- -- -- 81.5 kg (179 lb 10.8 oz) 09/29/24 0500 (!) 158/69 -- -- 94 19 100 % -- 09/29/24 0430 (!) 145/73 -- -- 91 18 100 % -- 09/29/24 0400 (!) 146/77 99.8 F (37.7 C) Bladder 92 14 100 % -- 09/29/24 0342 -- -- -- 94 22 100 % -- 09/29/24 0330 (!) 124/91 -- -- 95 15 100 % -- 09/29/24 0300 138/73 -- -- 91 17 100 % -- 09/29/24 0230 (!) 161/80 -- -- 96 21 100 % -- 09/29/24 0200 (!) 160/82 99.9 F (37.7 C) -- 94 18 100 % -- 09/29/24 0130 (!) 167/82 -- -- 97 17 100 % -- 09/29/24 0116 (!) 189/94 -- -- -- -- -- -- 09/29/24 0100 (!) 186/96 -- -- 92 18 100 % -- 09/29/24 0030 (!) 181/92 -- -- 89 15 100 % -- 09/29/24 0000 (!) 155/82 (!) 100.6 F (38.1 C) Oral 88 17 100 % -- 09/28/24 2330 (!) 171/86 -- -- 90 12 100 % -- Intake/Output Summary (Last 24 hours) at 09/29/2024 0721 Last data filed at 09/29/2024 0714 Gross per 24 hour Intake 4176.08 ml Output 1315 ml Net 2861.08 ml Date 09/29/24 0000 - 09/29/24 2359 Shift 4510-1616 0505-7424 5199-2714 24 Hour Total INTAKE I.V.(mL/kg) 2670.3(32.8) 2670.3(32.8) IV Piggyback(mL/kg) 624.2(7.7) 624.2(7.7) Shift Total(mL/kg) 3294.4(40.4) 3294.4(40.4) OUTPUT Urine(mL/kg/hr) 400 400 Emesis/NG output(mL/kg) 100(1.2) 100(1.2) Shift Total(mL/kg) 500(6.1) 500(6.1) Weight (kg) 81.5 81.5 81.5 81.5 Wt Readings from Last 3 Encounters: 09/29/24 81.5 kg (179 lb 10.8 oz) 09/28/24 88 kg (194 lb 0.1 oz) 01/21/24 88.3 kg (194 lb 10.7 oz) Body mass index is 25.78 kg/m . PHYSICAL EXAM: GEN: intubated and unarousable EYES: pupils equal, round, and reactive to light HEENT: Normocephalic, without obvious abnormality LUNGS: On ventilator support, bilateral coarse breath sounds CV: regular rate and rhythm, normal S1 and S2, no S3 or S4, and no murmur noted ABDOMEN: No scars, normal bowel sounds, soft, non-distended, non-tender, no masses palpated NEURO:: Intubated & Sedated. Does not withdraw to pain EXTREMITIES: No pedal or leg edema, no calf swelling, no erythema, distal pulses intact MEDICATIONS: Scheduled Meds: sodium chloride flush 5-40 mL IntraVENous 2 times per day piperacillin-tazobactam 3,375 mg IntraVENous Q8H linezolid 600 mg IntraVENous Q12H atorvastatin 40 mg Oral Nightly aspirin 81 mg Oral Daily carvedilol 12.5 mg Oral BID WC pantoprazole (PROTONIX) 40 mg in sodium chloride (PF) 0.9 % 10 mL injection 40 mg IntraVENous Daily Continuous Infusions: sodium chloride Stopped (09/28/249) propofol 25 mcg/kg/min (09/29/24713) sodium chloride Stopped (09/28/242123) dextrose 5 % and 0.45 % NaCl 150 mL/hr at 09/29/24713 insulin 1.2 Units/hr (09/29/24 0656) heparin (PORCINE) Infusion 12 Units/kg/hr (09/29/24713) PRN Meds: sodium chloride flush, 5-40 mL, PRN sodium chloride, , PRN potassium chloride, 20 mEq, PRN Or potassium chloride, 10 mEq, PRN magnesium sulfate, 2,000 mg, PRN ondansetron, 4 mg, Q8H PRN Or ondansetron, 4 mg, Q6H PRN polyethylene glycol, 17 g, Daily PRN acetaminophen, 650 mg, Q6H PRN Or acetaminophen, 650 mg, Q6H PRN dextrose bolus, 125 mL, PRN Or dextrose bolus, 250 mL, PRN potassium chloride, 10 mEq, PRN magnesium sulfate, 2,000 mg, PRN sodium phosphate 15 mmol in sodium chloride 0.9 % 250 mL IVPB, 15 mmol, PRN dextrose 5 % and 0.45 % NaCl, , Continuous PRN labetalol, 5 mg, Q6H PRN hydrALAZINE, 5 mg, Q6H PRN heparin (porcine), 4,000 Units, PRN heparin (porcine), 2,000 Units, PRN SUPPORT DEVICES: [x] Ventilator [] BIPAP [] Nasal Cannula [] Room Air VENT SETTINGS (Comprehensive) (if applicable): Vent Information Ventilator ID: Servo i Ventilator Initiate: Yes Vent Mode: AC/PRVC Additional Respiratory Assessments Pulse: 93 Respirations: 17 SpO2: 100 % ETCO2 (mmHg): 34 mmHg Humidification Source: [facility] ABGs: Arterial Blood Gas result: pH 7.41; pCO2 38; pO2 161; HCO3 25; Lab Results Component Value Date/Time PHART 7.385 09/28/2024 09:42 AM MIQ1QUC 35.2 09/28/2024 09:42 AM PO2ART 72.2 09/28/2024 09:42 AM LJI2CPJ 20.6 09/28/2024 09:42 AM A2KLZIYO 94.5 09/28/2024 09:42 AM FIO2 30.0 09/29/2024 04:25 AM DATA: Complete Blood Count: Recent Labs 09/28/24 1513 09/28/24 1824 09/29/24 0305 WBC 17.1* 17.2* 17.6* RBC 3.34* 3.33* 3.08* HGB 9.6* 9.5* 8.8* HCT 27.4* 28.8* 26.1* MCV 82.0* 86.5 84.7 MCH 28.7 28.5 28.6 MCHC 35.0* 33.0 33.7 RDW 13.0 13.0 13.1 PLT 240 226 214 MPV 10.5 10.4 10.6 Last 3 Blood Glucose: Recent Labs 09/28/24 0834 09/28/24 1130 09/28/24 1513 09/28/24 1824 09/28/24 2216 GLUCOSE 820* 657* 316* 241* 415* PT/INR: Lab Results Component Value Date/Time PROTIME 14.3 09/28/2024 06:24 PM INR 1.1 09/28/2024 06:24 PM PTT: Lab Results Component Value Date/Time APTT 20.2 09/28/2024 06:24 PM Comprehensive Metabolic Profile: Recent Labs 09/28/24 0834 09/28/24 1130 09/28/24 1513 09/28/24 1824 09/28/24 2216 NA 128* < > 137 136 134* K 5.0 < > 4.2 3.9 3.8 CL 87* < > 103 104 102 CO2 23 < > 22 22 21 BUN 43* < > 41* 40* 37* CREATININE 2.0* < > 2.3* 2.3* 2.2* GLUCOSE 820* < > 316* 241* 415* CALCIUM 9.4 < > 8.5* 8.5* 7.6* BILITOT 0.4 -- -- -- -- ALKPHOS 192* -- -- -- -- AST 29 -- -- -- -- ALT 24 -- -- -- -- < > = values in this interval not displayed. Magnesium: Lab Results Component Value Date/Time MG 1.7 09/28/2024 10:16 PM MG 1.8 09/28/2024 06:24 PM MG 1.3 09/28/2024 11:30 AM Phosphorus: Lab Results Component Value Date/Time PHOS 3.2 09/28/2024 10:16 PM PHOS 2.8 09/28/2024 06:24 PM PHOS 3.5 09/28/2024 11:30 AM Ionized Calcium: Lab Results Component Value Date/Time CAION 1.20 09/28/2024 03:13 PM CAION 1.13 01/19/2024 09:21 AM Urinalysis: Lab Results Component Value Date/Time NITRU NEGATIVE 09/28/2024 09:50 AM COLORU Yellow 09/28/2024 09:50 AM PHUR 6.5 09/28/2024 09:50 AM PHUR 5.5 01/19/2024 09:11 AM WBCUA 0 TO 2 09/28/2024 09:50 AM RBCUA 2 TO 5 09/28/2024 09:50 AM MUCUS NOT REPORTED 10/27/2021 12:50 PM TRICHOMONAS NOT REPORTED 10/27/2021 12:50 PM YEAST NOT REPORTED 10/27/2021 12:50 PM BACTERIA None 01/19/2024 09:11 AM LEUKOCYTESUR NEGATIVE 09/28/2024 09:50 AM UROBILINOGEN Normal 09/28/2024 09:50 AM BILIRUBINUR NEGATIVE 09/28/2024 09:50 AM GLUCOSEU 3+ 09/28/2024 09:50 AM KETUA 1+ 09/28/2024 09:50 AM AMORPHOUS NOT REPORTED 10/27/2021 12:50 PM HgBA1c: Lab Results Component Value Date/Time LABA1C 09/28/2024 03:13 PM Sent to reference laboratory. Separate report to follow. TSH: Lab Results Component Value Date/Time TSH 0.58 01/19/2024 07:38 AM Lactic Acid: Lab Results Component Value Date/Time LACTA 3.4 09/28/2024 11:29 AM LACTA 2.3 09/28/2024 08:34 AM LACTA 2.2 01/19/2024 01:48 AM Troponin: No results for input(s): TROPONINI in the last 72 hours. Microbiology: Results Procedure Component Value Units Date/Time Culture, Respiratory [[id number]] (Abnormal) Collected: 09/28/242053 Order Status: Completed Specimen: Respiratory specimen from Tracheal Aspirate Updated: 09/28/242229 Specimen Description .TRACHEAL ASPIRATE Special Requests Site: Respiratory specimen Direct Exam < 10 EPITHELIAL CELLS/LPF >10, <25 NEUTROPHILS/LPF FEW GRAM POSITIVE COCCI IN PAIRS Culture PENDING MRSA DNA Probe, Nasal [[id number]] Collected: 09/28/24 1638 Order Status: Sent Specimen: Nares Updated: 09/28/24 1638 LEGIONELLA ANTIGEN, URINE [[id number]] Collected: 09/28/24 1625 Order Status: Completed Specimen: Urine Updated: 09/28/24 175 Legionella Pneumophilia Ag, Urine NEGATIVE Comment: L. pneumophila serogroup 1 antigen not detected. A negative result does not exclude infection with Leginella pnemophila serogroup 1 nor does it rule out other microbial-caused respiratory infections of disease caused by other serogroups of Legionella pneumophila. Strep Pneumoniae Antigen [[id number]] Collected: 09/28/241623 Order Status: Completed Specimen: Urine, clean catch Updated: 09/28/24 1757 Source .URINE Strep pneumo Ag NEGATIVE Comment: Strep pneumoniae antigen not detected Respiratory Panel, Molecular, with COVID-19 (Restricted: peds pts or suitable admitted adults) [[id number]] Collected: 09/28/24 162 Order Status: Completed Specimen: Respiratory specimen from Nasopharyngeal Swab Updated: 09/28/24 182 Specimen Description .NASOPHARYNGEAL SWAB Adenovirus PCR Not [...] Performed by multiplexed nucleic acid assay. Culture, Blood 1 [[id number]] Collected: 09/28/2439 Order Status: Sent Specimen: Blood Updated: 09/28/24 0855 Culture, Blood 2 [[id number]] Collected: 09/28/2434 Order Status: Sent Specimen: Blood Updated: 09/28/24 0857 Radiology/Imaging: US RENAL COMPLETE Result Date: 09/29/2024 1. No evidence of hydronephrosis. 2. Mildly hyperechoic kidneys bilaterally suggesting medical renal disease. 3. Unremarkable appearance of the bladder. A Lin catheter is in place. XR ABDOMEN FOR NG/OG/NE TUBE PLACEMENT Result Date: 09/28/2024 Enteric tube appears to be in appropriate position. XR CHEST PORTABLE Result Date: 09/28/2024 No acute cardiopulmonary process. Endotracheal tube with the tip in the midtrachea. CT CHEST ABDOMEN PELVIS W CONTRAST Additional Contrast? None Result Date: 09/28/2024 Few ground-glass opacities laterally in the left lung concerning for an infectious process. Trace amount of fluid and potential inflammation adjacent to the pancreas concerning for pancreatitis. CTA HEAD NECK W CONTRAST Result Date: 09/28/2024 No significant stenosis or evidence for large vessel occlusion. Few partially visualized ground-glass opacities in the left lung concerning for pneumonia. CT HEAD WO CONTRAST Result Date: 09/28/2024 No acute intracranial abnormality. Remote right parietal lobe infarct. ASSESSMENT: Patient Active Problem List Diagnosis Date Noted DKA, type 2, not at goal (HCC) 09/28/2024 Acute hypoxemic respiratory failure 09/28/2024 Central apnea 01/22/2024 Hypertensive encephalopathy 01/19/2024 Hypertensive emergency 01/19/2024 Fever 01/19/2024 Altered mental status 01/19/2024 Encephalopathy acute 01/19/2024 Hypertensive urgency 01/19/2024 Lactic acidosis 01/19/2024 Bacteremia due to Staphylococcus aureus Sinus tachycardia Mild malnutrition (HCC) 10/28/2021 Diabetic acidosis without coma ([facility]) 10/27/2021 PLAN: WEAN PER PROTOCOL: [] No [x] Yes [] N/A ICU PROPHYLAXIS: Stress ulcer: [x] PPI Agent [] [id number] [] Sucralfate [] Other: VTE: [] Enoxaparin [] Unfract. Heparin Subcut [] EPC Cuffs NUTRITION: [] NPO [] Tube Feeding (Specify: ) [] TPN [x] PO CONSULTATION NEEDED: [] No [] Yes TRANSFER OUT OF ICU: [x] No [] Yes Plan: Neuro: CT head showing remote parietal infarct Neurology consulted. Appreciate further recommendations MRI brain ordered Last well known time 8:30 pm last night Started on aspirin and lipitor Resp: Intubated on ventilator CT chest concerning for possible pneumonia Vent settings: AC/PRVC. PEEP: 5, Tidal Volume: 580, RR: 17 Respiratory culture growing GP cocci in pairs RPP, Mycoplasma, Legionella. MRSA negative Vent Information Ventilator ID: Servo i Vent Mode: AC/PRVC CV: BP at [place] was 225/110 and started on cardene drip On arrival to MICU, BP 159/82 D/C Cardene drip; increase home coreg to 25 BID Hydralazine 10 mg PRN Cardiology consulted for rising troponin (NSTEMI) GI/Nutrition: Tube feeds initiated /Fluids/Electrolytes: Na 133, Potassium 4.4, HCO3 20 Creatinine increasing to 2.4 today Good urine output Renal US unremarkable ABHIJIT on CKD If no improvement in kidney function tomorrow, will consult Nephrology Strict I/Os Heme: WBC 16.7, hemoglobin 12.1, platelets 291 ID: Pneumonia work up (RPP, S. Pneumo, Legionella, Mycoplasma negative Respiratory culture GP cocci in pairs Elevated CRP Continue Zosyn, stop Zyvox as MRSA is negative Lactic acid down-trending. Will repeat blood cultures if continues to be febrile or clinical statusworsens Endo: Last A1C was 12.0 in 01/2024 History of noncompliance with home insulin Bridged this morning with home dose lantus 20 units and high dose sliding scale Prophylaxis: DVT: Heparin 5000 TID GI: Protonix Dispo: TBD Sussy Mtz MD Family Medicine PGY2 Critical Care Service 09/29/2024 7:21 AM Associated attestation - Stanley Mckenzie MD - 09/29/2024 7:43 PM EST Critical Care Attending Physician Addendum: I have personally seen and examined Ortiz Gorman with the resident and the swartz elements of all parts of the encounter were performed by me. Patient was reassessed on more than one occasion, when required. I reviewed the interval history, interpreted all available radiographic, laboratory and physiologic data at the time of service. I agree with the assessment and plan as documented by resident.Any addendum including requisite additions/deletions are as noted below. Critical care time (excluding procedures) of more than 30 minutes was spent in coordination of care during bedside rounds and discussion of patient care in detail. Stanley Mckenzie MD 09/29/2024 Pulmonary and Critical Care Medicine * Harriet Pelletier RCP - 09/28/2024 8:05 PM EST 09/28/241946 Airway Clearance Sputum Method Obtained Endotracheal Sputum Amount Small Sputum Color/Odor White Sputum Consistency Thick Sputum sample sent to lab for culture. * Debra Cramer RCP - 09/28/2024 5:05 PM EST Ventilator Bronchodilator assessment Breath sounds: clear,diminished Inspiratory Pressure: 17 Plateau Pressure: 14 Patient assessed at level 1 [] Bronchodilator Assessment BRONCHODILATOR ASSESSMENT SCORE Score 0 (Home) 1 2 3 4 Breath Sounds [] Chronic Ventilator: Patient at baseline [x] Mild Wheezes/ Clear [] Intermittent wheezes with good air entry [] Bilateral/unilateral wheezing with diminished air entry [] Insp/Exp wheeze and/or poor aeration Ventilator Pressures [] Chronic Ventilator [x] Insp. Pressure less than 25 cm H20 [x] Insp. Pressure less than 25 cm H20 [] Insp. Pressure exceeds 25 cm H20 [] Insp. Pressure exceeds 30 cm H20 Plateau Pressure [] NA [x] Plateau Pressure less than 4 [] Plateau Pressure less than or equal to 5 [] Plateau Pressure greater than or equal to 6 [] Plateau Pressure greater than or equal to 8 DEBRA CRAMER RCP 5:06 PM * Regi Mitchell RD, LD - 09/28/2024 3:07 PM EST Diabetes Education Note Referral for diabetes education received per DKA orderset. Pt life flight[facility] from [facility] to [facility] ER admitted to 3002: Diabetic ketoacidosis with coma associated with type 2 diabetes mellitus (HCC), Pneumonia of left lower lobe due to infectious organism, Altered mental status, unspecified altered mental status type, ABHIJIT (acute kidney injury) (HCC), Acute respiratory failure with hypoxia, Hypertensive encephalopathy, Non compliance w medication regimen. Adm BS 820, HgbA1c 12% pt intubated and placed on insulin drip. Will follow and provide DM education at a more appropriate time. Regi Mitchell RD, ESE, [facility] Hospital course Narrative* Rhoda Luna MD - 10/06/2024 8:27 AM EST Images from the original note were not included. [facility] Office: [phone] Andrew Hernandez DO, Ernie Escalante DO, Hal Atwood DO, Carlos Trejo DO, Ora Sharp MD, Dawna Chaney MD, Bassam Sher MD, Rhoda Luna MD, Lc Ibarra MD, Elyssa Yee MD, Jeimy Mireles MD, Franck Solis DO, Jelena Damon MD, Rashid Mathew MD, Felix Hernandez DO, Suzan Abbasi MD, Kulwinder Polk DO, Adriana Abdalla MD, Trino Gilliland MD, Peggy Cook MD, Clovis Mares MD, Db Lindquist MD, Judy Alvarez MD, Anne Quan MD, Roseline Forrest MD, Denilson Oliveira MD, Vilma Steel MD, Ludmila Best DO, Bradly Nassar MD, Sarita Mcmullen,PARKER, Linda Lynch CNP, Ludmila Aguilera, TAKE AWAY MAN, Lina Morgan, JENNA, Nini Raya, TAKE AWAY MAN, Giuliana Mae, TAKE AWAY MAN, Myra Almodovar, TAKE AWAY MAN, Suzy Dooley, TAKE AWAY MAN, Gaviota Rich, PA-C, Carley So PA-C, Shelly Rainey,TAKE AWAY MAN, Manny Laura, TAKE AWAY MAN, Yenny Motta, TAKE AWAY MAN, Claudine Parrish, TAKE AWAY MAN, Maame Carter, TAKE AWAY MAN, Edilma Garza, TAKE AWAY MAN [facility] IN-PATIENT SERVICE [facility] Discharge Summary Patient ID: Ortiz Gorman : 1975 ACCOUNT: [id number] Patient's PCP: Vincent Winters MD Admit Date: 09/28/2024 Discharge Date: 10/06/2024 Length of Stay: 8 Code Status: Full Code Admitting Physician: No admitting provider for patient encounter. Discharge Physician: Rhoda Luna MD Active Discharge Diagnoses: Hospital Problem Lists: Principal Problem: DKA, type 2, not at goal (HCC) Active Problems: NSTEMI (non-ST elevated myocardial infarction) ([facility]) Acute metabolic encephalopathy Acute hypoxemic respiratory failure Abnormal finding on MRI of brain Abnormal electrocardiography ABHIJIT (acute kidney injury) ([facility]) Stage 3 chronic kidney disease ([facility]) Hypertension Seizures ([facility]) Cerebrovascular accident (CVA) ([facility]) Resolved Problems: * No resolved hospital problems. * Admission Condition: poor Discharged Condition: fair Hospital Stay: HPI: Per Critical care note This 48-year-old male was admitted to the hospital with DKA and acute hypoxic respiratory failure. The patient did require mechanical ventilation and has been successfully extubated. Concerns for pneumonia existed and he has been maintained on Zosyn since admission. The patient's breathing has improved and his DKA treated accordingly. He is presently on Lantus and sliding scale. The patient had significant elevation of his blood pressure and antihypertensive medications have been initiated. He is presently been started on Cozaar, Coreg, Norvasc. Cardiology was consulted due to elevated cardiac enzymes. Echocardiogram demonstrated preserved ejection fraction and recommendations are for stress test at a later date. He does have an element of acute on kidney failure secondary to above which is improving since admission. At this point in time his biggest complaint is that of generalized weakness secondary to his hospitalization. We will ask PT/OT to evaluate the patient for recommendations regarding safe disposition. The patient denies any questions or concerns at this point in time During the admission patient was managed as follow Needed ICU stay DKA NSTEMI Hypertensive Emergency Abnormal MRI brain with hyperintensity and diffusion restriction in the right parietal region ( stable sine MRI in 02/07) -Punctate infarct in the right parietal lobe - Subclinical seizures Acute metabolic encephalopathy Acute hypoxemic respiratory failure - DKA resolved - Continue Lantus and SS -Did receive diabetes education - Successfully extubated 10/01 -Troponin plateau, stress test unremarkable no further ischemic workup per cardiology. - Received Abx for concerns for aspiration PNA - Continue to monitor creatinine and avoid nephrotoxic agents - Neuro recommending repeat MRI in 4 weeks - Neuro evaluating, he was placed on LTM E that showed subclinical seizures , he was loaded with Keppra with improvement in his symptoms, neuro reconciled Keppra at 500 mg BID. - Discussed with Neuro attending, Dr. Tom, given presentation and no LVO it was felt that loop recorder can assist in further assessing tiology, he is not opposed to discharge later today if he continued to be stable. -Loop recorder was placed today 10/05. Follow-up with PCP, neurology and nephrology after discharge. Med rec done Scripts added Home care order added VALERY signed 35+ minutes spent Significant therapeutic interventions: As above Significant Diagnostic Studies: Labs / Micro: CBC: Lab Results Component Value Date/Time WBC 7.2 10/06/2024 05:45 AM RBC 3.09 10/06/2024 05:45 AM HGB 8.8 10/06/2024 05:45 AM HCT 26.5 10/06/2024 05:45 AM MCV 85.8 10/06/2024 05:45 AM MCH 28.5 10/06/2024 05:45 AM MCHC 33.2 10/06/2024 05:45 AM RDW 13.0 10/06/2024 05:45 AM PLT 210 10/06/2024 05:45 AM BMP: Lab Results Component Value Date/Time GLUCOSE 250 10/06/2024 05:45 AM NA 132 10/06/2024 05:45 AM K 4.6 10/06/2024 05:45 AM CL 102 10/06/2024 05:45 AM CO2 23 10/06/2024 05:45 AM ANIONGAP 7 10/06/2024 05:45 AM BUN 47 10/06/2024 05:45 AM CREATININE 2.1 10/06/2024 05:45 AM CALCIUM 8.3 10/06/2024 05:45 AM LABGLOM 38 10/06/2024 05:45 AM LABGLOM 69 01/22/2024 05:08 AM GFRAA >60 04/19/2022 11:10 PM GFR 04/19/2022 11:10 PM GFR 04/19/2022 11:10 PM HFP: No components found for: AP , ALB , PROT , SGOT , SGPT , TBIL , DBILCALC CMP: Lab Results Component Value Date/Time GLUCOSE 250 10/06/2024 05:45 AM NA 132 10/06/2024 05:45 AM K 4.6 10/06/2024 05:45 AM CL 102 10/06/2024 05:45 AM CO2 23 10/06/2024 05:45 AM BUN 47 10/06/2024 05:45 AM CREATININE 2.1 10/06/2024 05:45 AM ANIONGAP 7 10/06/2024 05:45 AM ALKPHOS 192 09/28/2024 08:34 AM ALT 24 09/28/2024 08:34 AM AST 29 09/28/2024 08:34 AM BILITOT 0.4 09/28/2024 08:34 AM ALBUMIN 3.0 10/04/2024 11:35 AM LABGLOM 38 10/06/2024 05:45 AM LABGLOM 69 01/22/2024 05:08 AM GFRAA >60 04/19/2022 11:10 PM GFR 04/19/2022 11:10 PM GFR 04/19/2022 11:10 PM CALCIUM 8.3 10/06/2024 05:45 AM PT/INR: Lab Results Component Value Date/Time PROTIME 13.6 10/04/2024 05:25 AM INR 1.1 10/04/2024 05:25 AM PTT: Lab Results Component Value Date/Time APTT 20.2 09/28/2024 06:24 PM FLP: Lab Results Component Value Date/Time CHOL 177 10/01/2024 05:41 AM TRIG 213 10/01/2024 05:41 AM HDL 49 10/01/2024 05:41 AM U/A: Lab Results Component Value Date/Time COLORU Yellow 09/30/2024 09:27 AM TURBIDITY Cloudy 09/30/2024 09:27 AM HGBUR MODERATE 09/30/2024 09:27 AM PHUR 5.0 09/30/2024 09:27 AM PHUR 5.5 01/19/2024 09:11 AM PROTEINU 3+ 09/30/2024 09:27 AM GLUCOSEU 3+ 09/30/2024 09:27 AM KETUA NEGATIVE 09/30/2024 09:27 AM BILIRUBINUR NEGATIVE 09/30/2024 09:27 AM UROBILINOGEN Normal 09/30/2024 09:27 AM NITRU NEGATIVE 09/30/2024 09:27 AM LEUKOCYTESUR NEGATIVE 09/30/2024 09:27 AM TSH: Lab Results Component Value Date/Time TSH 1.19 10/03/2024 03:09 AM Radiology: IR LUMBAR PUNCTURE FOR DIAGNOSIS Result Date: 10/04/2024 Successful fluoroscopic-guided lumbar puncture. Nuclear stress test with myocardial perfusion Result Date: 10/03/2024 [Normal study.] Risk stratification: [Low] Author: Ludmila Rushing MD MRI BRAIN WO CONTRAST Result Date: 09/30/2024 1. Abnormal signal intensity within the cortex and subcortical white matter of the right parietal lobe, right temporal lobe and right occipital lobe in a distribution similar to the findings on the previous exam from 01/22/2024. Differential considerations include an encephalitis, postictal edema or a symmetric PRES (an uncommon presentation). 2. Punctate acute infarct within the cortex of the rightparietal lobe. The findings were sent to the Radiology Results Communication Center at 1:34 pm on 09/30/2024 to be communicated to a licensed caregiver. Consultations: Consults: Final Specialist Recommendations/Findings: IP CONSULT TO CABLE DRILLER IP CONSULT TO NEUROLOGY IP CONSULT TO CARDIOLOGY IP CONSULT TO NEPHROLOGY IP CONSULT TO HOME CARE NEEDS The patient was seen and examined on day of discharge A&O X 3 CTAB NSR, NO MRG Soft abdomen , +BS No swelling and pulse palpable Discharge plan: Disposition: Home with home care Physician Follow Up: Jayden Orosco MD [address], [address] [facility] [id number] Schedule an appointment as soon as possible for a visit in 6 week(s) Ramy Sanchez MD [address] [facility] [address] Follow up in 1 month(s) Vincent Winters MD [address] [facility] [address] Follow up Requiring Further Evaluation/Follow Up POST HOSPITALIZATION/Incidental Findings: Diet: diabetic diet and renal diet Activity: As tolerated Instructions to Patient: Discharge Medications: Medication List START taking these medications amLODIPine 10 MG tablet Commonly known as: NORVASC Take 1 tablet by mouth daily Start taking on: October 07, 2024 aspirin 81 MG chewable tablet Take 1 tablet by mouth daily Start taking on: October 07, 2024 atorvastatin 40 MG tablet Commonly known as: LIPITOR Take 1 tablet by mouth nightly Blood Pressure Kit Check your BP at least twice a day & record in a log to discuss with your PCP Insulin Pen Needle 32G X 6 MM Misc Use it once daily Insulin Syringe-Needle U-100 30G X 5/16 0.5 ML Misc 1 each by Does not apply route daily levETIRAcetam 500 MG tablet Commonly known as: KEPPRA Take 2 tablets by mouth 2 times daily losartan 50 MG tablet Commonly known as: COZAAR Take 1 tablet by mouth daily Start taking on: October 07, 2024 CHANGE how you take these medications carvedilol 25 MG tablet Commonly known as: COREG Take 1 tablet by mouth 2 times daily (with meals) What changed: medication strength how much to take Lantus SoloStar 100 UNIT/ML injection pen Generic drug: insulin glargine Inject 25 Units into the skin nightly What changed: how much to take CONTINUE taking these medications folic acid 1 MG tablet Commonly known as: FOLVITE Take 1 tablet by mouth daily insulin lispro 100 UNIT/ML Soln injection vial Commonly known as: HUMALOG,ADMELOG Inject 0-16 Units into the skin 3 times daily (with meals) STOP taking these medications NIFEdipine 30 MG extended release tablet Commonly known as: PROCARDIA XL Where to Get Your Medications These medications were sent to [place] [id number] [facility] [phone] - F [phone] [facility] [address] amLODIPine 10 MG tablet aspirin 81 MG chewable tablet atorvastatin 40 MG tablet carvedilol 25 MG tablet insulin lispro 100 UNIT/ML Soln injection vial Insulin Pen Needle 32G X 6 MM Misc Insulin Syringe-Needle U-100 30G X 5/16 0.5 ML Misc Lantus SoloStar 100 UNIT/ML injection pen levETIRAcetam 500 MG tablet losartan 50 MG tablet [facility] [place] [facility] [place] [place] [address] [facility] [phone] - F [phone] [facility] [phone] Blood Pressure Kit Discharge Procedure Orders MRI Brain W WO Contrast Standing Status: Future Standing Exp. Date: 10/02/25 Order Specific Question Answer Comments STAT Creatinine as needed: Yes Reason for exam: follow up to right cerebral hyperintensities Basic Metabolic Panel Standing Status: Future Standing Exp. Date: 10/06/25 Order Comments: Please fax to Dr. Laura at [phone] Time Spent on discharge is 40 mins in patient examination, evaluation, counseling as well as medication reconciliation, prescriptions for required medications, discharge plan and follow up. Electronically signed by Rhoda Luna MD 10/06/2024 12:44 PM Thank you Vincent Roman MD for the opportunity to be involved in this patient's care. [facility] Hospital Discharge instructions* Discharge Instructions* Joseline Teague RN - 10/05/2024 12:50 PM EST Diabetes Education nurse spoke with Laura over the phone Suggestions are Check blood sugar with a glucometer and keep a log. Take this log with you to doctor appointments. Try to find the parts to his Dexcom CGM and restart it's use (then you won't have to poke his fingers) It may be best for Laura to give the long acting insulin to her father daily (at least for a while) to make certain that it is consistently getting done. Short acting insulin at meal time is importanttoo. I left the materials that we discussed in the patient's room Diabetes Education phone number is [phone]. You worked with Joseline Teague RN * Discharge Instr - VALERY* Rhoda Luna MD - 10/02/2024 11:44 AM EST Continuity of Care Form Patient Name: Ortiz Gorman : 1975 Admit date: 09/28/2024 Discharge date: 10/06/2024 Code Status Order: Full Code Advance Directives: Advance Care Flowsheet Documentation Admitting Physician: Stanley Mckenzie MD PCP: Vincent Winters MD Discharging Nurse: Gabriela OCONNELL Discharging Hospital Unit/Room#: 3002/3002-01 Discharging Unit Emergency Contact: Extended Emergency Contact Information Primary Emergency Contact: sherrie gorman Relation: Parent Secondary Emergency Contact: Yamileth Romero Relation: Child Past Surgical History: Past Surgical History: Procedure Laterality Date APPENDECTOMY LEG SURGERY Right 10/30/2021 right intrarticular hip aspiration under fluro performed by Vincent Kuhn DO at [facility] OR Immunization History: Immunization History Administered Date(s) Administered COVID-19, J&J, (age 18y+), IM, 0.5 mL 02/24/2021 Active Problems: Patient Active Problem List Diagnosis Code Diabetic acidosis without coma ([facility]) E11.10 Mild malnutrition ([facility]) E44.1 Bacteremia due to Staphylococcus aureus R78.81, B95.61 Sinus tachycardia R00.0 Acute metabolic encephalopathy G93.41 Hypertensive emergency I16.1 Fever R50.9 Altered mental status R41.82 Encephalopathy acute G93.40 Hypertensive urgency I16.0 Lactic acidosis E87.20 Central apnea R06.81 DKA, type 2, not at goal ([facility]) E11.10 Acute hypoxemic respiratory failure J96.01 NSTEMI (non-ST elevated myocardial infarction) ([facility]) I21.4 Abnormal finding on MRI of brain R90.89 Isolation/Infection: Isolation No Isolation Patient Infection Status None to display Nurse Assessment: Last Vital Signs: BP (!) 176/88 Pulse 67 Temp 97.6 F (36.4 C) (Oral) Resp 16 Ht 1.778 m (5'10 ) Wt 83.2 kg (183 lb 6.8 oz) SpO2 100% BMI 26.32 kg/m Last documented pain score (0-10 scale): Pain Level: 0 Last Weight: Wt Readings from Last 1 Encounters: 10/02/24 83.2 kg (183 lb 6.8 oz) Mental Status: oriented and alert IV Access: - None Nursing Mobility/ADLs: Walking Assisted Transfer Assisted Bathing Independent Dressing Independent Toileting Independent Feeding Independent 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 Independent Med Delivery whole Wound Care Documentation and Therapy: Incision Femoral Anterior;Proximal;Right (Active) Number of days: Elimination: Continence: Bowel: Yes Bladder: Yes Urinary Catheter: None Colostomy/Ileostomy/Ileal Conduit: No Date of Last BM: 10/03/2024 Intake/Output Summary (Last 24 hours) at 10/02/2024 1143 Last data filed at 10/02/2024 0800 Gross per 24 hour Intake 1566.81 ml Output 860 ml Net 706.81 ml I/O last 3 completed shifts: In: 4162.7 [P.O.:1080; I.V.:1937.4; NG/GT:947; IV Piggyback:198.3] Out: 2605 [Urine:2595; Emesis/NG output:10] Safety Concerns: At Risk for Falls Impairments/Disabilities: Vision Nutrition Therapy: Current Nutrition Therapy: - Oral Diet: General Routes of Feeding: Oral Liquids: No Restrictions Daily Fluid Restriction: no Last Modified Barium Swallow with Video (Video Swallowing Test): not done Treatments at the Time of Hospital Discharge: Respiratory Treatments: n/a Oxygen Therapy: is not on home oxygen therapy. Ventilator: - No ventilator support Rehab Therapies: n/a Weight Bearing Status/Restrictions: No weight bearing restrictions Other Medical Equipment (for information only, NOT a DME order): walker Other Treatments: n/a Patient's personal belongings (please select all that are sent with patient): Cell phone RN SIGNATURE: CASE MANAGEMENT/SOCIAL WORK SECTION Inpatient Status Date: 09/28/24 Readmission Risk Assessment Score: [facility] RISK OF UNPLANNED READMISSION 2.0 16.9 Total Score Discharging to Facility/ Agency Name: [facility] Address: Fax: Dialysis Facility (if applicable) Name: Address: Dialysis Schedule: Phone: Fax: Director Data Architecture/Medical Legal Investigator signature: at11:44 AM EST PHYSICIAN SECTION Prognosis: Fair Condition at Discharge: Stable Rehab Potential (if transferring to Rehab): Fair Recommended Labs or Other Treatments After Discharge: Glycemic and BP control Compliance with Keppra F/U with neurology BMP in 1 week and F/U with nephrology Physician Certification: I certify the above information and transfer of Ortiz Gorman is necessary for the continuing treatment of the diagnosis listed and that he requires Home Care for greater 30days. Update Admission H&P: Changes in H&P as follows - DKA NSTEMI Hypertensive Emergency Abnormal MRI brain with hyperintensity and diffusion restriction in the right parietal region ( stable sine MRI in 02/07) -Punctate infarct in the right parietal lobe - Subclinical seizures Acute metabolic encephalopathy Acute hypoxemic respiratory failure - DKA resolved - Continue Lantus and SS -Did receive diabetes education - Successfully extubated 10/01 -Troponin plateau, stress test unremarkable no further ischemic workup per cardiology. - Received Abx for concerns for aspiration PNA - Continue to monitor creatinine and avoid nephrotoxic agents - Neuro recommending repeat MRI in 4 weeks - Neuro evaluating, he was placed on LTM E that showed subclinical seizures , he was loaded with Keppra with improvement in his symptoms. - Discussed with Neuro attending, Dr. Tom, given presentation and no LVO it was felt that loop recorder can assist in further assessing tiology, he is not opposed to discharge later today if he continued to be stable. -Loop recorder was placed today 10/05. PHYSICIAN SIGNATURE: * Attachments The following attachments cannot be sent through Care Everywhere. * Insulin Pen: How to Use: General Info (Venezuelan) * Diabetes: Type 2: General Info (Venezuelan) * Diabetes Diet Meal Planning: General Info (Venezuelan) * Seizure (Venezuelan) * Levetiracetam Extended Release Oral Tablet (LEVETIRACETAM - ORAL) ([place]an) documented in this [facility] Hospital Discharge instructions* Discharge Instructions* Maulik Guardado MD - 01/22/2024 2:27 PM [...] a repeat brain MRI in 6-8 weeks asper neurology and outpatient follow-up with neurology Please take insulin regularly. As missing your insulin can lead due to diabetic ketoacidosis, if you find any trouble with taking insulin please call your PCP Please follow-up with your PCP within 1 week for diabetes and hypertension * Attachments The following attachments cannot be sent through Care Everywhere. * Diabetes: Carb Counting and Eating Well: General Info ([place]an) documented in [facility] History of Present illness Narrative* Saturnino Angel MD - 01/22/2024 12:43 PM EDT Images from the original note were not included. [facility] Progress Note Ortiz Gorman Date: 01/22/2024 LOS: 3 Reason for F/U : Possible meningitis Impression : Altered mental status concern for toxic metabolic encephalopathy versus primary SORTER LUMBER STRAIGHTENER process Status post lumbar puncture 01/19/2024 at IR and CSF findings not consistent with primary SORTER LUMBER STRAIGHTENER infection Respiratory failure-intubated for airway protection Extubated [...] on Rocephin, vancomycin, and acyclovir empirically for SORTER LUMBER STRAIGHTENER infection Antibiotics were narrowed down to Rocephin 01/20/2024 All the blood, CSF culture data thus far remains negative The patient is markedly improved is following commands and has no neurological deficits At this point in time the plan will be to discontinue the antibiotic therapy Infectious disease bower the patient is stable and all testing has been negative- we will sign off surgical be of any further assistance please do not hesitate to call us back Infection Control Recommendations: [place] precautions Discharge Planning: Patient will need Midline Catheter Insertion/ PICC line Insertion: No Patient will need: Home IV , Infusion Center, SNF, LTAC: Undetermined Patient willneed outpatient wound care: No Medical Decision making / Summary of Stay: Ortiz Gorman is a 48 y.o.-year-old male who was initially admitted on 01/19/2024. Ortiz is seen and evaluated at bedside he [...] September 2023. The patient is an active mejia and has intermittent episodes of confusion. The [...] pressure was 240 prompting transfer here to [facility] The patient continued to get increasingly confused, [...] underwent fluoroscopy guided lumbar puncture at L3-L4 with12 mL of clear CSF obtained The patient [...] Min: 97.4 F (36.3 C) Max: 98.7 F(37.1 C) The patient is seen and evaluated [...] 0 Tube Number, CSF 3 Resulting Agency [facility] Specimen Collected: 01/19/24 15:56 EDT Last Resulted: [...] Component Value Units Date/Time Culture, Blood 1 [[id number]] Collected: 01/19/24 0814 Order Status: Completed Specimen: Blood Updated: 01/22/2418 Specimen Description .BLOOD Special Requests R HAND 5 ML Culture NO GROWTH 3 DAYS Culture, Blood 1 [[id number]] Collected: 01/19/24 0810 Order Status: Completed Specimen: Blood Updated: 01/22/2414 Specimen Description .BLOOD Special Requests L HAND 5 ML Culture NO GROWTH 3 DAYS Culture, CSF [[id number]] Collected: 01/19/24 1553 Order Status: Completed Specimen: CSF Updated: 01/22/24 0721 Specimen Description .CSF Direct Exam RARE NEUTROPHILS NO ORGANISMS SEEN Gram stain made from cytocentrifuged specimen. Organisms and cells will be concentrated. Culture NO GROWTH 3 DAYS Lyme Disease AB, CSF [[id number]] Collected: 01/19/24 1556 Order Status: Completed Specimen: [...] developed and its performance characteristics determined by [facility]. It has not been cleared or approved by the US Food and Drug Administration. This test was performed in a CLIA certified laboratory and is intended for clinical purposes. Performed By: [facility] [address] [place] [id number] Telephone Installer: Rogelio Miranda MD, PhD CLIA Number: [id number] VDRL CSF [[id number]] Collected: 01/19/241555 Order Status: Completed Specimen: CSF Updated: 01/20/24 1119 VDRL, CSF Screen NONREACTIVE Culture, Urine [[id number]] Collected: 01/19/24 0911 Order Status: Completed Specimen: Urine, straight catheter Updated: 01/20/24 0853 Specimen Description .URINE,STRAIGHT CATHETER Culture NO GROWTH Meningitis Encephalitis Panel CSF, Molecular [[id number]] Collected: 01/19/24 155 Order Status: Completed Specimen: CSF Updated: 01/19/24 [...] nucleic acid assay. West Nile Virus, CSF [[id number]] Collected: 01/19/24 1556 Order Status: Sent Specimen: CSF Updated: 01/19/24 1557 Herpes simplex virus PCR [[id number]] Collected: 01/19/24 1548 Order Status: Sent Specimen: CSF Updated: 01/19/24 1548 Gram stain CSF [[id number]] Collected: 01/19/24 1546 Order Status: Canceled Specimen: Spinal Fluid Culture, Respiratory [[id number]] Order Status: No result Specimen: Endotracheal Respiratory Panel, Molecular, with COVID-19 (Restricted: peds pts or suitable admitted adults) [[id number]] Collected: 01/19/24 0909 Order Status: Completed Specimen: [...] nucleic acid assay. MRSA DNA Probe, Nasal [[id number]] Collected: 01/19/24 0437 Order Status: Completed Specimen: [...] BID [facility] Saturnino Angel MD [employer] OFFICE: Thank you for allowing us to [...] meaning can be extrapolated by contextual diversion. * Marce Restrepo, MARINE SERVICE MANAGER - TAKE AWAY MAN - 01/22/2024 8:07 AM EDT Images from the original note were not included. NEUROLOGY INPATIENT PROGRESS NOTE 01/22/2024 Current Exam: Chart reviewed. Discussed with RN. Repeat MRI brain planned for today. He is alert and oriented. Hedenies any complaints. Did require a dose of Labetalol overnight. Brief History: Ortiz Gorman is a 48 y.o. male with H/O DM, who was admitted as a transfer from [facility] on 01/19/2024 with persistent headache. While at [place] patient reportedly worsened in regards to his mentation and became more confused and agitated prompting transfer to [facility] for further evaluation andcare. He was significantly hypertensive and was admitted to the medical ICU and placed on a Cardenedrip. The morning of 01/18 he continued to worsen and ultimately required intubation. Also developed a fever requiring an infectious workup; he underwent LP on 01/18 with findings not consistent with a primary SORTER LUMBER STRAIGHTENER infection nor suggestive of SAH. No current [...] Reported on 01/20/2024) 3 pen 3 Allergies: Ortiz Gorman has No Known Allergies. Past Medical History: Diagnosis Date Diabetes mellitus (HCC) Past Surgical History: Procedure Laterality Date APPENDECTOMY LEG SURGERY Right 10/30/2021 right intrarticular hip aspiration under fluro performed by Vincent Kuhn DO at [facility] OR Social History: Ortiz Gorman reports that he has never smoked. His smokeless tobacco use includeschew. He reports that he does not currently use alcohol. He reports that he does not use drugs. No family history on file. Objective: BP (!) 161/87 Pulse 81 Temp 98.4 F (36.9 C) (Oral) Resp 15 Ht 1.778 m (5' 10 ) Wt 88.3 kg(194 lb 10.7 oz) SpO2 97% BMI 27.93 [...] or delusion CRANIAL NERVES: II - Visual baker intact to confrontation III,IV, - EOMs full, [...] tested Data: Lab Results: CBC: Recent Labs 01/20/246 01/21/24 0452 01/22/24 0508 WBC 11.1 9.2 [...] a similar admission 3 months ago at [facility] with acute respiratory failure in the setting [...] to ensure the accuracy of this automated harpsichord maker, some errors in harpsichord maker may have occurred. Associated attestation - Addy Brown DO - 01/22/2024 5:13 PM EDT Attending Physician Statement: I have discussed the care of Ortiz Gorman, including pertinent history and exam findings with theAPP. I have seen and examined the patient and the swartz elements of the encounter have been performedby me. I have reviewed medications, clinical laboratory, imaging and other diagnostic tests with the PAT. I agree with the assessment, plan and orders as documented by the PAT with changes made to the note as needed. Clinically doing well. MRI Brain is reviewed; previous area of hyperintensity in the perimesencephalic region has resolvedalthough there is now an area of diffusion [...] Notable clonal bands are pending. Will add [facility] encephalitis panel. Discussed with patient at length [...] nurse Addy Brown DO 01/22/2024 5:08 PM * Jamal Patel MD - 01/22/2024 7:04 AM EDT Images from the original note were not included. [facility] Internal Medicine Teaching Residency Program Inpatient Daily Progress Note Patient: Ortiz Gorman Date of : 1975 Acct: [id number] Room: [address] [place] [address] Admit date: 01/19/2024 Today's date: 01/22/24 Number [...] the past 1 to 2 days at [facility]. He wasalso noted to have left-sided facial droop, left-sided deficits and there was a concern for possible dysarthria, telestroke team was consulted. Imaging was negative for any kind of acute changes likeCT and CTA head and neck. His blood pressure was in the 240s, patient was started on Cardene drip with improvement. And later was transferred to the [facility] ICU. On arrival to the ICU his bloodsugars were in 500s, and was started on insulin drip. Patient was later intubated, due to concerns for central apnea for airway protection. For the concerns of SORTER LUMBER STRAIGHTENER infection patient was started on Chaim ephin, vancomycin and acyclovir empirically. These antibiotics were narrowed down to Rocephin on 01/20/2024. Underwent MRI and LP for the concerns of SORTER LUMBER STRAIGHTENER infections which were negative. His neurological status significantly improved after his blood pressure, blood sugars were controlled. On neurology evaluation, there was concern of acute encephalopathy of unclear origin, CSF studies had been ruling out any kind of SORTER LUMBER STRAIGHTENER infection, and head imaging had been ruling [...] 1.778 m (5' 10 ) Wt 88.3 kg(194 lb 10.7 oz) SpO2 97% BMI 27.93 [...] mL, PRN Diagnostic Labs: CBC: Recent Labs 04/03/09 33601/21/2445101/22/24 0508 WBC 11.1 9.2 7.4 RBC 3.44* [...] , BILIDIR , BILITOT , ALKPHOS in thelast 72 hours. MICROBIOLOGY: Lab Results Component Value Date/Time CULTURE NO GROWTH 2 DAYS 01/19/2024 03:53 PM Imaging: IR LUMBAR PUNCTURE FOR DIAGNOSIS Result Date: 01/20/2024 Successful fluoroscopic-guided lumbar puncture. CT Head W/O Contrast Result Date: 01/19/2024 No acute intracranial abnormality. No intracranial hemorrhage. The preliminary report was conveyed verbally to Dr. Steve Alvarado, by CORE associate,Daija Benson at 11:07 p.m. on 01/18/2024. MRI BRAIN W WO CONTRAST Result Date: 01/19/2024 1. High FLAIR signal changes are seen in the perimesencephalic cistern and bilateral cerebral convexities. Patient is intubated. The finding could represent manifestation of increased oxygen tension in the CSF versus less likely due early meningitis versus remote subarachnoid hemorrhage. These findi ngs are nonspecific, but can be seen in the setting of meningitis. Correlation with CSF sampling isrecommended. 2. No abnormal focus on brain or [...] Jamal Patel MD Internal Medicine Resident, PGY-1 [place], [place] 01/22/2024,7:13 AM Associated attestation - Trino Gilliland MD - 01/22/2024 1:23 PM EDT Attending Physician Statement I have discussed the care of Ortiz Gorman, including pertinent history and exam findings, [...] Attending Physician Internal Medicine Residency Program, Nephrology [facility] 01/22/2024, 1:22 PM * Jamal Patel MD - 01/21/2024 10:21 PM EDT Images from the original note were not included. [facility] Department of Internal Medicine - Staff Internal Medicine Service ICU PATIENT TRANSFER NOTE Patient: Ortiz Gorman Date of : 1975 Acct: [id number] Admit date: 01/19/2024 Code Status:- Full code [...] and headache for the past 1 to 2days. He initially presented at the [facility]. He was also noted to have left-sided facial droop, left-sided deficits and there was a concern for possible dysarthria, telestroke team was consulted. Imaging was negative for any kind of acute changes like CT and CTA head and neck. His blood pressure was in the 240s, patient was started on Cardene drip with improvement. And later was transferred to the [facility] ICU. On arrival to the ICU his blood sugars were in 500s, and was started oninsulin drip. Patient was later intubated, due to central apnea for airway protection. For the concerns of SORTER LUMBER STRAIGHTENER infection patient was started on Rocephin, vancomycin and acyclovir empirically. These antibiotics were narrowed down to Rocephin on 01/20/2024. Underwent MRI and LP for the concerns of SORTER LUMBER STRAIGHTENER infections which were negative. His neurological status significantly improved after his blood pressure, blood sugars were controlled. On neurology evaluation, there was concern of acute encephalopathy of unclear origin, CSF studies had been ruling out any kind of SORTER LUMBER STRAIGHTENER infection, and head imaging hadbeen ruling out hemorrhage. Patient returned to baseline. [...] intake/output: Intake/Output Summary (Last 24 hours) at 01/21/20242 Last data filed at 01/21/2024 1800 Gross [...] Jamal Patel MD Department of Internal Medicine [facility], [place] 01/21/2024, 10:22 PM * Aidee Rodriguez MD - 01/21/2024 6:20 PM EDT Critical care team - Resident sign-out to medicine service Date and time: 01/21/2024 6:21 PM Patient's name: Ortiz Gorman Patient's account/billing number: [id number] Patient's Date of : 1975 Age: 48 y.o. Date of Admission: 01/19/2024 3:48 AM Length of stay during current admission: 2 Primary Care Physician: Vincent Winters MD Code Status: Full Code Mode of physician to physician communication: [x] Via telephone [] In person Date and time of sign-out: 01/21/2024 6:21 PM Accepting Internal Medicine resident: Dr. Mathews Accepting Medicine team: IM Team Med 1 Accepting team's attending: Dr. Trino Gilliland Patient's current ICU Bed: 3002 Patient's assigned bed on floor: 444 [] Med-Surg Monitored [x] Step-down [] Psychiatry ICU [] Psych floor Reason for ICU admission: Hypertensive emergency ICU course summary: Ortiz Gorman is a 48 y.o. male with a past medical history of diabetes and untreated hypertension Patient originally presented to [place] with complaints of high sugars and a headache that was ongoing for 1-2 days. Additionally he was noted to have left- sided facial droop, left-sided deficits, andconcern for possible dysarthria, telestroke was consulted and CT head and CTA head and neck were performed and were unremarkable. He was also noted to have a blood pressure in the 240s, was started on Cardene drip with improvement of his pressures. Patient was transferred to [facility] ICU for further care and neuro evaluation. [...] Pt appears to be having central apnea, intubatedfor airway protection. New fever while in department. Concern for SORTER LUMBER STRAIGHTENER infection. MRI and LP pending. 01/19: MRI [...] Further follow-up MRI in the next 6 to8 weeks pending Tuesday MRI results 2. Infectious [...] admitting resident will be following up the patientfrom now onwards on the floor. Aidee Rodriguez MD PGY-2, Internal Medicine Resident [facility], [place] 01/21/2024, 7:22 PM * Sarthak Sepulveda RN - 01/21/2024 5:41 PM EDT Patient walked 1/2 of the unit with RN for standby assist if needed. Patient ambulated independently with direction of RN due to patient not having his glasses and could not see very far in front of him. * Addy Brown DO - 01/21/2024 4:12 PM EDT Images from the original note were not included. [facility] Neurology IN-PATIENT SERVICE NEUROLOGY PROGRESS NOTE Date: 01/21/2024 Patient name: Ortiz Gorman Date of admission: 01/19/2024 Date of [...] the chart was reviewed. Initially presented to [facility] on 01/17 evening due to persistent headache. Reportedly at [place] patient worsened as far as his mentation becoming more confused, agitated requiring transfer to [place]. He was significantly hyp ertensive prompting medical ICU admission for Cardene drip and blood pressure control. On the morning of 01/18 he continued to worsen requiring intubation. Also developing a fever prompting infectious workup. Past Medical History: Past Medical History: Diagnosis Date Diabetes mellitus (HCC) Past Surgical History: Past Surgical History: Procedure Laterality Date APPENDECTOMY LEG SURGERY Right 10/30/2021 right intrarticular hip aspiration under fluro performed by Vincent Kuhn DO at [facility] OR Medications during admission: insulin glargine [...] dysarthria, aphasia. Cranial nerves II - visual baker intact to confrontation; pupils reactive III, IV, [...] touch, pin, vibration, proprioception throughout Cerebellar Intact eibowc-jawt-sanyul testing. Intact heel-langley testing. No dysdiadochokinesia present. Reflex function 2/4 [...] report was conveyed verbally to Dr. Steve Alvarado, by CORE associate,Daija Benson at 11:07 p.m. on 01/18/2024. CTA head and neck: No significant stenosis or occlusion I personally reviewed all of the above medications, clinical laboratory, imaging and other diagnostic tests. Impression: Acute encephalopathy of unclear etiology; CSF studies noninfectious, as well as no RBC to suggest SAH. Acute respiratory failure Hypertensive emergency Similar admission 3 months ago at [facility] with acute respiratory failure in the setting of agitation and hypertensive crisis Plan: Patient essentially back to baseline neurologically. Did have discussion with him regarding the events leading up to hospitalization in which he just remembers feeling off . He states he felt like he did back in end of August when he had his first hospitalization at [facility] with elevated blood sugars and blood [...] unit at this time Addy Brown DO [facility]rology * Saturnino Angel MD - 01/21/2024 1:54 PM EDT Images from the original note were not included. [facility] Progress Note Ortiz Gorman Date: 01/21/2024 LOS: 2 Reason for F/U : Possible meningitis Impression : Altered mental status concern for toxic metabolic encephalopathy versus primary SORTER LUMBER STRAIGHTENER process Status post lumbar puncture 01/19/2024 at IR and CSF findings not consistent with primary SORTER LUMBER STRAIGHTENER infection Respiratory failure-intubated for airway protection Extubated [...] on Rocephin, vancomycin, and acyclovir empirically for SORTER LUMBER STRAIGHTENER infection Antibiotics were narrowed down to Rocephin [...] the Rocephin as well Infection Control Recommendations: [place] precautions Discharge Planning: Estimated Length of IV antimicrobials: To be determined Patient will need Midline Catheter Insertion/ PICC line Insertion: No Patient will need: Home IV , Infusion Center, SNF, LTAC: Undetermined Patient willneed outpatient wound care: No Medical Decision making / Summary of Stay: Ortiz Gorman is a 48 y.o.-year-old male who was initially admitted on 01/19/2024. Ortiz is seen and evaluated at bedside he [...] September 2023. The patient is an active mejia and has intermittent episodes of confusion. The [...] pressure was 240 prompting transfer here to [facility] The patient continued to get increasingly confused, [...] underwent fluoroscopy guided lumbar puncture at L3-L4 with12 mL of clear CSF obtained The patient [...] 10/27/2021 11:36 AM No results for input(s): [facility] in the last 72 hours. Component Ref Range & Units 01/19/24 1556 Volume, CSF mL 12 Appearance, CSF Clear Xanthochromia ABSENT WBC, CSF <5 cells/uL 0 RBC, CSF 0 cells/uL 0 Tube Number, CSF 3 Resulting Agency [facility] Specimen Collected: 01/19/24 15:56 EDT Last Resulted: [...] Procedure Component Value Units Date/Time Culture, CSF [[id number]] Collected: 01/19/24 1553 Order Status: Completed Specimen: CSF Updated: 01/20/24 0730 Specimen Description .CSF Direct Exam RARE NEUTROPHILS NO ORGANISMS SEEN Gram stain made from cytocentrifuged specimen. Organisms and cells will be concentrated. Culture NO GROWTH 15 HOURS Culture, Blood 1 [[id number]] Collected: 01/19/24 0814 Order Status: Completed Specimen: Blood Updated: 01/19/242117 Specimen Description .BLOOD Special Requests R HAND 5 ML Culture NO GROWTH 12 HOURS Culture, Blood 1 [[id number]] Collected: 01/19/24 0810 Order Status: Completed Specimen: Blood Updated: 01/19/242113 Specimen Description .BLOOD Special Requests L HAND 5 ML Culture NO GROWTH 12 HOURS Meningitis Encephalitis Panel CSF, Molecular [[id number]] Collected: 01/19/24 1556 Order Status: Completed Specimen: [...] by multiplexed nucleic acid assay. VDRL CSF [[id number]] Collected: 01/19/24 155 Order Status: Sent Specimen: CSF Updated: 01/19/241556 Lyme Disease AB, CSF [[id number]] Collected: 01/19/241555 Order Status: Sent Specimen: CSF Updated: 01/19/241556 West Nile Virus, CSF [[id number]] Collected: 01/19/24 155 Order Status: Sent Specimen: CSF Updated: 01/19/241556 Herpes simplex virus PCR [[id number]] Collected: 01/19/24 1548 Order Status: Sent Specimen: CSF Updated: 01/19/24 1548 Gram stain CSF [[id number]] Collected: 01/19/24 1546 Order Status: Canceled Specimen: Spinal Fluid Culture, Respiratory [[id number]] Order Status: No result Specimen: Endotracheal Respiratory Panel, Molecular, with COVID-19 (Restricted: peds pts or suitable admitted adults) [[id number]] Collected: 01/19/24 0909 Order Status: Completed Specimen: [...] by multiplexed nucleic acid assay. Culture, Urine [[id number]] Collected: 01/19/24 0911 Order Status: Sent Specimen: Urine, straight catheter Updated: 01/19/24 09 MRSA DNA Probe, Nasal [[id number]] Collected: 01/19/24 0437 Order Status: Completed Specimen: [...] WC insulin lispro 0-16 Units SubCUTAneous TID insulin lispro 0-4 Units SubCUTAneous Nightly sodium chloride flush 5-40 mL IntraVENous 2 times per day heparin (porcine) 5,000 Units SubCUTAneous 3 times per day insulin regular 1-20 Units IntraVENous Once insulin regular 14 Units IntraVENous Once chlorhexidine 15 mL Mouth/Throat BID [facility] Saturnino Angel MD [employer] messaging OFFICE: Thank you for allowing us [...] meaning can be extrapolated by contextual diversion. * Sarmad Daly MD - 01/21/2024 8:10 AM EDT INTENSIVE CARE UNIT Resident Physician Progress Note Patient - Ortiz Gorman Date of Admission - 01/19/2024 3:48 AM Date of Evaluation - 01/21/2024 Room and Bed Number - 3002/3002-01 Hospital Day - 2 HPI: History was obtained from chart review and the patient. Ortiz Gorman is a 48 y.o. male with a past medical history of diabetes and untreated hypertension Patient originally presented to [place] with complaints of high sugars and a headache that was ongoing for 1-2 days. Additionally he was noted to have left- sided facial droop, left-sided deficits, andconcern for possible dysarthria, telestroke was consulted and CT head and CTA head and neck were performed and were unremarkable. He was also noted to have a blood pressure in the 240s, was started on Cardene drip with improvement of his pressures. Patient was transferred to [facility] ICU for further care and neuro evaluation. [...] Pt appears to be having central apnea, intubatedfor airway protection. New fever while in department. Concern for SORTER LUMBER STRAIGHTENER infection. MRI and LP pending. 01/19: MRI [...] 1.778 m (5' 10 ) Wt 92.1 kg(203 lb) SpO2 93% BMI 29.13 kg/m Tmax [...] Date 01/21/24 0000 - 01/21/24 2359 Shift 6759-3756 9416-6474 5168-2555 24 Hour Total INTAKE I.V.(mL/kg) 955.3(10.4) 955.3(10.4) [...] applicable): DATA: Complete Blood Count: Recent Labs 01/19/2444401/20/2433501/21/24 045 WBC 13.2* 11.1 9.2 RBC 4.41 3.44* 3.52* HGB 12.9* 10.1* 10.3* HCT 37.2* 30.7* 31.9* MCV 84.4 89.2 90.6 MCH 29.3 29.4 29.3 MCHC 34.7 32.9 32.3 RDW 13.6 14.2 14.2 PLT 201 158 162 MPV 10.9 10.3 10.7 Last 3 Blood Glucose: Recent Labs 01/19/24 1353 01/19/24 1913 01/20/24 0140 01/20/24 03301/20/24 1007 01/20/24165601/20/24202601/21/24 0452 GLUCOSE 208* 257* 135* [...] PROPHYLAXIS: Stress ulcer: [x] PPI Agent [] [id number] [] Sucralfate [] Other: VTE: [] Enoxaparin [...] Statement I have discussed the care of Ortiz Gorman, including pertinent history and exam findings with theresident. I have reviewed the swartz elements of [...] and once on the floor critical care teamwill sign off. Discussed with nursing staff, treatment and plan discussed. Total critical care time caring for this patient with life threatening, unstable organ failure, including direct patient contact, management of life support systems, review of data including imaging and labs, discussions with other team members and physicians at least 30 Min so far today, excludingprocedures. Please note that this chart was generated using voice recognition [employer] dictation software. Although every effort was made to ensure the accuracy of this automated harpsichord maker, some errors in harpsichord maker may have occurred. Sarmad Daly MD 01/21/2024 11:57 AM * Addy Brown, - 01/20/2024 12:29 PM EDT Images from the original note were not included. [facility] Neurology IN-PATIENT SERVICE NEUROLOGY PROGRESS NOTE Date: 01/20/2024 Patient name: Ortiz Gorman Date of admission: 01/19/2024 Date of [...] the chart was reviewed. Initially presented to [facility] on 01/17 evening due to persistent headache. Reportedly at [place] patient worsened as far as his mentation becoming more confused, agitated requiring transfer to [place]. He was significantly hyp ertensive prompting medical ICU admission for Cardene drip and blood pressure control. On the morning of 01/18 he continued to worsen requiring intubation. Also developing a fever prompting infectious workup. Past Medical History: Past Medical History: Diagnosis Date Diabetes mellitus (HCC) Past Surgical History: Past Surgical History: Procedure Laterality Date APPENDECTOMY LEG SURGERY Right 10/30/2021 right intrarticular hip aspiration under fluro performed by Vincent Kuhn DO at [facility] OR Medications during admission: cefTRIAXone (ROCEPHIN) [...] thumbs up bilaterally. Squeezing hands bilaterally. Wiggling toesbilaterally. Tone: Normal DTR 2/4 throughout (-) Freitas's [...] report was conveyed verbally to Dr. Steve Alvarado, by CORE associate,Daija Benson at 11:07 p.m. on 01/18/2024. CTA head and neck: No significant stenosis or occlusion. I personally reviewed all of the above medications, clinical laboratory, imaging and other diagnostic tests. Impression: Acute encephalopathy of unclear etiology; CSF studies noninfectious, as well as no RBC to suggest SAH. Acute respiratory failure Hypertensive emergency Similar admission 3 months ago at [facility] with acute respiratory failure in the [...] abnormalities. Upon chart review he was at [facility] back in September with similar type of presentation acute delirium, agitation requiring intubation and acute respiratory failure. Eventually was extubated and left AMA. At that time MRI brain was reported as normal. Critical care recommendations Continued blood pressure management Will follow Addy Brown DO [facility] [place] [facility] * Saturnino Angel MD - 01/20/2024 8:41 AM EDT Images from the original note were not included. [facility] Progress Note Ortiz Gorman Date: 01/20/2024 LOS: 1 Reason for F/U : Possible meningitis Impression : Altered mental status concern for toxic metabolic encephalopathy versus primary SORTER LUMBER STRAIGHTENER process Respiratory failure-intubated for airway protection Diabetes mellitus type 2 poorly controlled-currently on insulin Hypertensive emergency responded well to Cardene drip and has been able to wean off of it Concern for stroke given left-sided facial droop, dysarthria Chronic kidney disease stage III History of substance abuse Recommendations: The CSF findings are not consistent with a primary SORTER LUMBER STRAIGHTENER infection and therefore the antimicrobial therapy will be narrowed to Rocephin alone The blood culture data thus far remains negative The patient's mentation is markedly improved he is awake and alert following commands and no focal deficits appreciated I will continue to follow his progress and adjust therapy accordingly Infection Control Recommendations: [place] precautions Discharge Planning: Estimated Length of IV antimicrobials: To be determined Patient will need Midline Catheter Insertion/ PICC line Insertion: No Patient will need: Home IV , Infusion Center, SNF, LTAC: Undetermined Patient willneed outpatient wound care: No Medical Decision making / Summary of Stay: Ortiz Gorman is a 48 y.o.-year-old male who was initially admitted on 01/19/2024. Ortiz is seen and evaluated at bedside he [...] September 2023. The patient is an active mejia and has intermittent episodes of confusion. The [...] pressure was 240 prompting transfer here to [facility] The patient continued to get increasingly confused, [...] 10 ) Wt 89.7 kg (197 lb 12.8oz) SpO2 100% BMI 28.38 kg/m Temperature Range: [...] underwent fluoroscopy guided lumbar puncture at L3-L4 with12 mL of clear CSF obtained The patient [...] 1* 6 BMP: Recent Labs 01/20/24 0140 01/20/24 0336 NA 137 135* K 4.0 4.3 CL [...] CSF 3 Resulting Agency [facility] [place] Collected: 01/19/24 15:56 EDT Last Resulted: [...] Procedure Component Value Units Date/Time Culture, CSF [[id number]] Collected: 01/19/24 1553 Order Status: Completed Specimen: CSF Updated: 01/20/24 0730 Specimen Description .CSF Direct Exam RARE NEUTROPHILS NO ORGANISMS SEEN Gram stain made from cytocentrifuged specimen. Organisms and cells will be concentrated. Culture NO GROWTH 15 HOURS Culture, Blood 1 [[id number]] Collected: 01/19/24 0814 Order Status: Completed Specimen: Blood Updated: 01/19/242117 Specimen Description .BLOOD Special Requests R HAND 5 ML Culture NO GROWTH 12 HOURS Culture, Blood 1 [[id number]] Collected: 01/19/24 0810 Order Status: Completed Specimen: Blood Updated: 01/19/242113 Specimen Description .BLOOD Special Requests L HAND 5 ML Culture NO GROWTH 12 HOURS Meningitis Encephalitis Panel CSF, Molecular [[id number]] Collected: 01/19/24 1556 Order Status: Completed Specimen: CSF Updated: 01/19/24 184 Specimen Description .CSF ESCHERICHIA COLI K1 CSF [...] by multiplexed nucleic acid assay. VDRL CSF [[id number]] Collected: 01/19/24 155 Order Status: Sent Specimen: CSF Updated: 01/19/24 155 Lyme Disease AB, CSF [[id number]] Collected: 01/19/24 1556 Order Status: Sent Specimen: CSF Updated: 01/19/24 155 West Nile Virus, CSF [[id number]] Collected: 01/19/24 155 Order Status: Sent Specimen: CSF Updated: 01/19/24 155 Herpes simplex virus PCR [[id number]] Collected: 01/19/24 1548 Order Status: Sent Specimen: CSF Updated: 01/19/24 1548 Gram stain CSF [[id number]] Collected: 01/19/24 1546 Order Status: Canceled Specimen: Spinal Fluid Culture, Respiratory [[id number]] Order Status: No result Specimen: Endotracheal Respiratory Panel, Molecular, with COVID-19 (Restricted: peds pts or suitable admitted adults) [[id number]] Collected: 01/19/24908 Order Status: Completed Specimen: Nasopharyngeal Swab Updated: [...] by multiplexed nucleic acid assay. Culture, Urine [[id number]] Collected: 01/19/24910 Order Status: Sent Specimen: Urine, straight catheter Updated: 01/19/24910 MRSA DNA Probe, Nasal [[id number]] Collected: 01/19/24 0437 Order Status: Completed Specimen: [...] BID [facility] Saturnino Angel MD [employer] messaging OFFICE: Thank you for allowing us [...] meaning can be extrapolated by contextual diversion. * Sarmad Daly MD - 01/20/2024 6:58 AM EDT INTENSIVE CARE UNIT Resident Physician Progress Note Patient - Ortiz Gorman Date of Admission - 01/19/2024 3:48 AM Date of Evaluation - 01/20/2024 Room and Bed Number - 3002/3002-01 Hospital Day - 1 HPI: History was obtained from chart review and the patient. Ortiz Gorman is a 48 y.o. male with a past medical history of diabetes and untreated hypertension Patient originally presented to [place] with complaints of high sugars and a headache that was ongoing for 1-2 days. Additionally he was noted to have left- sided facial droop, left-sided deficits, andconcern for possible dysarthria, telestroke was consulted and CT head and CTA head and neck were performed and were unremarkable. He was also noted to have a blood pressure in the 240s, was started on Cardene drip with improvement of his pressures. Patient was transferred to [facility] ICU for further care and neuro evaluation. [...] Pt appears to be having central apnea, intubatedfor airway protection. New fever while in department. Concern for SORTER LUMBER STRAIGHTENER infection. MRI and LP pending. SUBJECTIVE: OVERNIGHT [...] 10 ) Wt 89.7 kg (197 lb 12.8oz) SpO2 100% BMI 28.38 kg/m Tmax over 24 hours: Temp (24hrs), Av.3 F (36.8 C), Min:97.4 F (36.3 C), Max:99.2 F (37.3 C) Patient Vitals for the past 8 hrs: BP Temp Temp src Pulse Resp SpO2 Weight 01/20/24 0842 -- -- -- 69 12 100 % -- 01/20/24 0803 -- -- -- 68 16 100 % -- 01/20/24 08 -- 98 F (36.7 C) -- -- -- -- -- 01/20/24 06 100/64 -- -- 71 16 100 % -- 01/20/24 06 97/63 -- -- 71 16 100 % 89.7 kg (197 lb 12.8 oz) 01/20/24 05 95/61 -- -- 73 16 100 % -- 01/20/24 0500 98/60 -- -- 74 16 100 % -- 01/20/24 0449 -- -- -- -- -- 100 % -- 01/20/24 0430 9660 -- -- 75 16 100 % -- 01/20/24 0400 99/ 98.6 F (37 C) Oral 74 16 100 % -- 01/20/24 0333 -- -- -- -- -- 100 % -- 01/20/24 0330 / -- -- 73 16 100 % -- 01/20/24 0307 -- -- -- 73 16 100 % -- 01/20/24 0300 9660 -- -- 73 16 100 % -- [...] Net 5026.05 ml Date 01/20/24 0000 - 01/20/242358 Shift 7851-7072 9487-2255 7613-6161 24 Hour Total INTAKE I.V.(mL/kg) 1365.5(15.2) 1365.5(15.2) [...] 0.45 % NaCl 150 mL/hr at 01/20/24 0835 propofol 20 mcg/kg/min (01/20/24 0649) midazolam dexmedeTOMIDine 0.4 mcg/kg/hr (01/20/24 0649) insulin 2.11 Units/hr (01/20/24 0815) PRN Meds: [...] Drained DATA: Complete Blood Count: Recent Labs 01/18/24 2245 01/19/24 0445 01/20/24 0336 WBC 8.6 13.2* 11.1 RBC 4.39 4.41 3.44* HGB 13.0 12.9* 10.1* HCT 36.5* 37.2* 30.7* MCV 83.1 84.4 89.2 MCH 29.6 29.3 29.4 MCHC 35.6* 34.7 32.9 RDW 13.4 13.6 14.2 PLT 212 201 158 MPV 10.4 10.9 10.3 Last 3 Blood Glucose: Recent Labs 01/18/245 01/19/245 01/19/24 1353 01/19/24191201/20/24 0140 01/20/24 0336 GLUCOSE 242* 530* 208* 257* 135* 180* PT/INR: Lab Results Component Value Date/Time PROTIME 13.8 01/19/2024 01:53 PM INR 1.1 01/19/2024 01:53 PM PTT: Lab Results Component Value Date/Time APTT 23.4 01/19/2024 01:53 PM Comprehensive Metabolic Profile: Recent Labs 01/18/24224401/19/245 01/19/24191201/20/24 0140 01/20/24 0336 NA 131* < > 137 137 [...] PROPHYLAXIS: Stress ulcer: [x] PPI Agent [] [id number] [] Sucralfate [] Other: VTE: [] Enoxaparin [...] < 180 Pulmonary: Intubated for airway protection [facility] 16 / 5 / 30% Wean Renal/Fluid/Electrolyte: T2DM [...] Statement I have discussed the care of Ortiz Gorman, including pertinent history and exam findings with theresident. I have reviewed the swartz elements of [...] at least 40 Min so far today, excludingprocedures. Please note that this chart was generated using voice recognition [employer] dictation software. Although every effort was made to ensure the accuracy of this automated harpsichord maker, some errors in harpsichord maker may have occurred. Sarmad Daly MD 01/20/2024 1:22 PM * Rashid Booth RN - 01/19/2024 7:42 PM EDT Patient intubated with 3 RN's, RT, and [...] given per verbal order from Dr. Salmeron. * Alba Denson RD, LD - 01/19/2024 3:27 PM EDT Comprehensive Nutrition Assessment Type and Reason for Visit: Initial, Positive Nutrition Screen (Unsure Amount Weight Loss) Nutrition Recommendations/Plan: Continue NPO. Monitor plans for nutrition and plan of care. If nutrition support requested, suggest TF of Diabetic formula goal 45 mL/hr with current rate of propofol. Malnutrition Assessment: Malnutrition Status: Insufficient data (01/19/24 1527) Context: Acute Illness Findings of the 6 clinical characteristics of malnutrition: Energy Intake: Mild decrease in energy intake Weight Loss: Unable to assess Body Fat Loss: Unable to assess Muscle Mass Loss: Unable to assess Fluid Accumulation: No significant fluid accumulation Procurement Technician Strength: Not Performed Nutrition Assessment: Pt admitted [...] Measures: Height: 177.8 cm (5' 10 ) [place] Body Weight (IBW): 166 lbs (75 kg) Admission Body Weight: 88.5 kg (195 lb 1.7 oz) Current Body Weight: 88.5 kg (195 lb 1.7 oz), 117.5 % IBW. Weight Source: Bed Scale Current BMI (kg/m2): 28 Weight Adjustment For: No Adjustment BMI Categories: Overweight (BMI 25.0-29.9) Estimated Daily Nutrient Needs: Energy Requirements Based On: Kcal/kg Weight Used for Energy Requirements: Admission Energy (kcal/day): 4840-7192 kcals/day Weight Used for Protein Requirements: Admission Protein (g/day): 95-115 gm pro/day Fluid (ml/day): per MD Nutrition Diagnosis: Inadequate oral intake related to impaired respiratory function as evidenced by NPO or clear liquidstatus due to medical condition, intubation Nutrition Interventions: [...] GI Status, Fluid Status or Edema, Weight, Skin,Nutrition Focused Physical Findings, Hemodynamic Status Discharge Planning: Too soon to determine Alba Denson RD, LD Contact: [phone] * Toan Reece RN - 01/19/2024 3:22 PM EDT Patient to IR for lumbar puncture, assisted to table in prone position. JR PA and CM RT at bedside. Site prepped and draped, area numbed with lidocaine. 12ml of clear fluid drained. Specimen collected. Band aid placed to site. Patient tolerated well and is transported back to room with PAINT STOCKMAN and respiratory therapist. * Xochitl Hampton MD - 01/19/2024 1:48 PM EDT Multiple attempts were made to contact family prior to intubation, including multiple calls to daughter Yamileth, son Shane, and mother Sherrie, however unable to get in touch with family prior to medically necessary intubation. Patient emergently intubated for airway protection given prolonged periods of central apnea and waxing and waning mental status as well as need for urgent interventions includinglumbar puncture and MRI brain. Call received from daughter later in the afternoon. Spoke with daughter, Yamileth Gorman, who is a emergency medical technician basic, at and updated on patient's condition, including intubation, and pending procedures including lumbar puncture and imaging including MRI. Consent obtained for lumbar puncture. Landon vega had an opportunity to ask all questions. Voiced understanding of treatment plan and patientcondition. She states she will be back to visit patient this afternoon. Xochitl Hampton MD * Rachael Serrano RCP - 01/19/2024 1:07 PM EDT Date: 01/19/2024 Time: 1253 Patient identity confirmed: [...] by: Dr. Grant Serrano RCP 1:07 PM * Divina Nielson RP - 01/19/2024 11:34 AM EDT [facility] Pharmacokinetic Monitoring Service - Vancomycin Ortiz Gorman is a 48 y.o. male starting [...] consult, Divina Nielson RPH 01/19/2024 11:29 AM * Sarmad Daly MD - 01/19/2024 8:38 AM EDT Please refer to documented H&P this morning for full H&P PLAN: Neuro GCS waxing and waning, 9 - 11 Periods of central apnea noted on exam Precedex gtt started overnight, briefly held due to depressed mentation to obtain neuro exam, patient with increased movement of all extremities and occasional appropriate verbalization, precedex nowrestarted at 0.[address] Head, CTA head[facility]neck [facility], no TNK given per telestroke Neurology consulted, recommend MRI once more stable EtOH negative UDS negative CIWA protocol, ativan held due to depressed mentation currently Thiamine, folate Given extensive periods of apnea and inability to obtain MRI or LP in current condition, will intubate patient this morning Lumbar puncture today MRI today Sitter at bedside Cardiology HTN emergency, SBP 250 at [facility] Cardene gtt now weaned off SBP goal < 180 Pulmonary 2L NC, continuous brief periods of apnea maintaining saturation CXR pending Renal DKA Beta-hydroxybutyrate 3.37 Insulin gtt 1/2 NS gtt DKA protocol Na 131 / K 5.6 1 g calcium gluconate this AM, iCa 1.13 CK 223 Marcio 166 Monitor I/O UA + moderate ketones, negative nitrites and LE GI Diet: NPO Vomiting at OSH LA 2.2 Ammonia 32 TSH 0.58 ID WBC 8.6 --> 13.2 Newly febrile to 101.1, afebrile at [facility] Meningitis prophylaxis initiated with acyclovir, rocephin, and vanco ID consulted Blood Cx NG < 24 h UA + moderate ketones, negative nitrite and LE, urine Cx pending RPP negative CRP 3.7 ESR 28 Endo DKA Glucose [id number] BHB 3.37 Insulin gtt, 1/2 NS gtt DKA protocol BMP q 4h HBA1c 12 Heme H/H 12.9 / 37 Plt 68 at [facility], 91 here DVT: Heparin SC, held this AM for lumbar puncture GI: Protonix WEAN PER PROTOCOL: [] No [x] Yes [] N/A ICU PROPHYLAXIS: Stress ulcer: [x] PPI Agent [] [id number] [] Sucralfate [] Other: VTE: [] Enoxaparin [...] Statement I have discussed the care of Ortiz Gorman, including pertinent history and exam findings with theresident. I have reviewed the swartz elements of [...] at least twice. With all his mentation changesand encephalopathy. Confusion metabolic reason can also be considered because of diabetic ketoacidosis but he is being confused disoriented on presentation restless and now has fever and will likely need a spinal tap or discussed with neurology. Patient will also need MRI of the brain which will change the decision. To exclude meningitis and MI ES or other etiology as patient is [...] at least 55 Min so far today, excludingprocedures. Please note that this chart was generated using voice recognition [employer] dictation software. Although every effort was made to ensure the accuracy of this automated harpsichord maker, some errors in harpsichord maker may have occurred. Sarmad Daly MD 01/19/2024 10:52 AM [facility]* Nursing Notes - Eveline Elias LPN - 09/24/2023 7:27 PM EST Patient leaving AMA at this time. This nurse educated patient and patient son about the risks of leaving AMA. Dr. Juarez notified on patient's decision. [facility]12-09-2023 Miscellaneous Notes* Nursing Notes - Eveline Elias LPN - 09/24/2023 7:27 PM EST Patient leaving AMA at this time. This nurse educated patient and patient son about the risks of leaving AMA. Dr. Juarez notified on patient's decision. * Nursing Notes - Eveline Elias LPN - 09/24/2023 4:00 PM EST Assessment unchanged from previous. Call light within reach. * Nursing Notes - Eveline Elias LPN - 09/24/2023 12:00 PM EST Assessment completed at this time. Refer to flowsheets if any changes were made. Call light within reach. Pt denies having any needs. * Nursing Notes - Toan Calvin RN - 09/24/2023 4:35 AM EST No change in assessment from previous * Nursing Notes - Natalio Naranjo RN - 09/23/2023 12:00 PM EST Head to toe reassessment completed by sign writer hand and is unchanged from previous head to toe assessment,please refer to flow sheets. * Plan of Care - Natty Desai - 09/23/2023 9:39 AM EST Problem: Dysphagia (Adult) Goal: Functional/Safe Swallow Description: Diet Recommendations and Strategies Regular Thin Liquids Meds whole with thin liquid Plan of Care: Frequency: 1x follow up Duration: 1 week Goals: Demolition Engineer: Ortiz Gorman will be able to consume a Regular with Thin Liquids independently with no evidence of pulmonary or nutritional compromise. Short term: Ortiz Gorman will consume recommended diet with adequate clearing and no symptoms of penetration/aspiration. Ortiz Gorman will participate in ongoing assessment for diet advancement and/or readiness for instrumental evaluation of swallowing. Ortiz Gorman will consume therapeutic trials of thin liquids without signs/symptoms of penetration/aspiration. Ortiz Gorman and/or family will demonstrate adequate comprehension of clinical education regarding dysphagia diagnosis, diet, and treatment recommendations. CHIEF ENGINEER will assist in establishing adequate oral hygiene for reduced risk of pulmonary compromise given dysphagia diagnosis. Outcome: Ongoing * Nursing Notes - Sujatha Walker RN - 09/23/2023 5:07 AM EST Patient more alert than previous assessment, this nurse asked patient if he remembers any events that has happened in the last day, he said he does remember a tube being down his thoat, but does not remember why. Educated patient on what happened. * Nursing Notes - Sujatha Walker RN - 09/23/2023 3:16 AM EST Patient able to tell this nurse it is 2022, still states he is at [facility], when reoriented that he is in [place] he states shoot I knew that . Patient pleasant but still restless in the bed, continues to roll in circles, and get up on hands and knees and rock back and forth. * Nursing Notes - Sujatha Walker RN - 09/23/2023 2:35 AM EST Patient had episode of bowel incontinence. Patient cleaned, and placed in a brief, linens changed as well. * Nursing Notes - Sujatha Walker RN - 09/22/2023 11:30 PM EST Patient continues to pull lines and lead at this time. Patient pulled IV out. This nurse placed newiv in left hand at this time. * Nursing Notes - Sujatha Walker RN - 09/22/2023 8:30 PM EST Patient continues to roll around in bed, and get on his hands and knees in the bed. This nurse redirected patient at this time. * Nursing Notes - Sujatha Walker RN - 09/22/2023 7:35 PM EST Patient calm, but remains confused at this time. Stated he is at [facility], the year is 2002, and Roger is the president. Redirected patient at this time. * Nursing Notes - Jennifer Lopez RN - 09/22/2023 6:44 PM EST Patient responses to staff when he wants too. Patient incontinent of stool for second time. Patientcleaned and repositioned wires and IV tubing untangled. Tele leads replaced. IV flushed with blood return in left should IV, patient shook head 'no' when asked if that was painful. Iv fluids started in that are. Patient's face is flushed and skin feels hot to touch. 99.2 was temp on temporal thermometer. Jennifer Lopez RN * Nursing Notes - Jennifer Lopez RN - 09/22/2023 5:12 PM EST Patient had rolled back on his side. IV's hooked back up. Importance of IV's explained to patient, patient nodded head in yes' motion. Iv's running for less then 5 minutes when patient rolled back up to all fours, which does not allow IV to run. Other IV site is left should is red and is difficultto flush. Due to patient's position, unable to attempt new IV sight placement at this time. Jennifer Lopez RN * Nursing Notes - Jennifer Lopez RN - 09/22/2023 4:24 PM EST Patient is currently on all fours in bed, rocking back an fourth. Patient, will not roll over on toback for staff. Patient does not answer staff when they ask him to roll over or if he is having pain anywhere. Unable to get IV in Right AC to run with how patient is holding his arms. Will attempt to run IV's whenever patient returns to a proper position in the bed. Jennifer Lopez RN * Nursing Notes - Jennifer Lopez RN - 09/22/2023 3:07 PM EST Delia discontinued per MD. Patient going to MRI. Neuro in to see. Jennifer Lopez RN * Nursing Notes - Jennifer Lopez RN - 09/22/2023 2:17 PM EST Patient still drowsy, wakes for a brief moment, will open eyes and look at you but will shake his head no to any question asked him. Son's updated on plan of care for patient. Jennifer Lopez RN * Nursing Notes - Jennifer Lopez RN - 09/22/2023 1:56 PM EST Patient was extubated at 1340, patient is drowsy but vitals are stable. Neurology consult made. RSVswab done and sent to lab. Son's at bedside. Jennifer Lopez RN * Therapy Note - Salazar Holley RRT - 09/22/2023 1:36 PM EST Patient extubated and placed on 2LPM nasal cannula. * Therapy Note - Salazar Holley RRT - 09/22/2023 12:21 PM EST ABG results given to Dr. Bird. * Therapy Note - Salazar Holley RRT - 09/22/2023 12:[address] Bird called regrding abg results. No answer. Message left. * Therapy Note - Salazar Holley RRT - 09/22/2023 11:12 AM EST PSV trial started with PS and PEEP 5, FIO2 30%. VT 432 mL, minute volume 7.33 L. HR 78, RR12, SpO2 99%. At 1126, HR 59, SpO2 100%, RR 18, Vt 446 mL, minute volume 8.15L. At 1204, HR 82, SpO2 100%, RR15, Vt 709 mL, minute volume 12.4L. ABG was drawn. Patient remains in PS mode. * Assessment & Plan Note - RODRIGUEZ Shepherd - 09/22/2023 10:05 AM ESTAssociated Problem(s): Polysubstance use disorder Positive for benzos and MDMA Complete cessation will be advised * Assessment & Plan Note - RODRIGUEZ Shepherd - 09/22/2023 10:04 AM ESTAssociated Problem(s): Acute respiratory failure Patient without hypoxia - Intubated due to combativeness Attempt wean/extubate today CXR non-acute 02 per protocol, IS Routine aerosols * Assessment & Plan Note - RODRIGUEZ Shepherd - 09/22/2023 10:04 AM ESTAssociated Problem(s): Acute delirium Secondary to drug effects CT head non-acute Supportive care * Nursing Notes - Jennifer Lopez RN - 09/22/2023 7:56 AM EST Morning assessment completed, Patient at appropriate level of sedation. Resting comfortable in bed,eyes closed. Vitals stable. Patient's mother called in and update give. Morning Labs drawn. Jennifer Lopez RN * Plan of Care - Jennifer Lopez RN - 09/22/2023 7:55 AM EST Problem: Patient Care Overview Goal: Plan of [...] discharge/transition of care. Outcome: Progressing Toward Goal * Nursing Notes - Amna Irvin RN - 09/22/2023 5:15 AM EST Precedex drip running, working to turn propofol down to wean off and precedex up to help keep pt calm. * Nursing Notes - Amna Irvin RN - 09/22/2023 4:20 AM EST Pt finally relaxing and less agitated, will continue to monitor. * Nursing Notes - Amna Irvin RN - 09/22/2023 3:15 AM EST Staff x4 in room to help protect pt as he is restless and agitated, sit up in bed, Dr. Bird notified to verify earlier order to change to precedex and discontinue propofol, states to proceed with this as stated earlier. * Nursing Notes - Amna Irvin RN - 09/22/2023 2:45 AM EST Pt awakens suddenly and quickly becomes agitated, due to situation propofol increased to try to calm pt. * Nursing Notes - Amna Irvin RN - 09/22/2023 1:15 AM EST Sedation titrated down due to low BP, pt then becomes very agitated and combative, BP increases, propofol titrated back up and pt calms, Dr. Bird notified of this, orders received. * Nursing Notes - Amna Irvin RN - 09/21/2023 9:30 PM EST Attempt to place OG without success, and then attempt NG also without success, pt becomes agitated during this, propofol adjusted. * Nursing Notes - Amna Irvin RN - 09/21/2023 9:00 PM EST On admission to [facility] ICU, from ED a dual RN initial assessment of skin condition was performed by Amna Irvin RN and Joseline Paez RN. Skin Assessment: Skin within defined limits:Yes Pt has some scabs and abrasions to bilateral shins. Derek Score: 12 LDA Added:No Amna Irvin RN * Nursing Notes - Amna Irvin RN - 09/21/2023 8:45 PM EST Loop here as pt arrives to ICU, * Therapy Note - Cami Meyer RCP - 09/21/2023 4:36 PM EST Ventilator initiated at this time. Refer to flowsheets for settings and readings. * Therapy Note - Cami Meyer RCP - 09/21/2023 4:30 PM EST Pt intubated with size 8.0 ETT 26@ teeth by Dr Beltran. Positive color change on EtCO2 with equal breath sounds noted. Vocal cords visualized via GlideScope. SpO2 100% while being bagged with 100% FiO2. documented in this [facility]12-09-2023 Nurse Note* Nursing Notes - Eveline Elias LPN - 09/24/2023 4:00 PM EST Assessment unchanged from previous. Call light within reach. [facility]12-09-2023 Nurse Note* Nursing Notes - Eveline Elias LPN - 09/24/2023 12:00 PM EST Assessment completed at this time. Refer to flowsheets if any changes were made. Call light within reach. Pt denies having any needs. [facility]12-09-2023 Hospital course Narrative* Cecil Ivan, FAYE-TAKE AWAY MAN - 09/24/2023 10:17 AM EST Discharge Summary Name: Ortiz Gorman Age: 47 y.o. Birthday: 1975 Admit Date: 09/21/2023 4:24 PM Discharge Date: 09/24/2023 Brief Summary of Hospital Course: The patient is a 47-year-old male who presented to the emergency department for evaluation of acutedelirium. Patient was intubated in the ED due [...] Now resolved UDS: Positive for MDMA - inpatient services rn consulted: Patient denied using MDMA, states he [...] diet. Resume home medications as appropriate and follow- up with PCP after discharge for continued evaluation [...] Resume pre-hospital diet as tolerated Discharge Follow-up: Vincent Winters MD [facility] [address] Call Post-Hospital Follow Up Discharge Disposition: Patient will be discharged in stable condition. Discharge Time: Including assessment, planning, and medication reconciliation was 8 minutes of TAKE AWAY MAN time. Cecil Ivan CNP completing Discharge Summary for Dr. Bird Please note Portions of this note utilized [employer] dictation software, please excuse any typographical or grammatical errors Associated attestation - Karl Bird MD - 09/24/2023 7:51 PM EST I have personally seen and examined Ortiz Gorman. I have personally reviewed all available clinicaldata related to this encounter including, but not limited to, radiolgraphs and reports, laboratory data, and procedure reports. I have been involved in formulation of the assessment and plan. 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 [...] the floor, including communicating with EDMD and PAT time. Not including procedure time or overlap with other Provider's time. Contact me if you need any clarification. Karl Bird MD Please note: Portions of this note utilized [employer] dictation software, please excuse any typographical or grammatical errors. Which inadvertently, might change the meaning and understanding. [facility] this [facility]* Nursing Notes - Toan Calvin RN - 09/24/2023 4:35 AM EST No change in assessment from previous [facility]12-08-2023 History of Present illness Narrative* TAN Moctezuma - 09/23/2023 4:35 PM EST 09/23/23 1300 Referral Information Arrived From home or self-care Information Source Information Source patient ;review of medical record Information Source Name Ortiz Gorman Contact Information Director Data Architecture/SW Added to Care Team Yes This Destination Specialist is Primary Director Data Architecture/SW Yes Social Work Contact Name Rachael Fox Medical Legal Investigator's Living Environment Lives With alone Living Arrangements house Primary Care Provided By self Support System Immediate family Able to Return to Prior Arrangements yes Functional Status Patient's Functional Status Prior To This Admission? Independent Employment/Financial Employed? 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 Denied issues affording food or medications, confirmed insurance is [employer]. Also denied having home O2 and home services. He reports having walkers, cane, and a wheelchair at home but does not use any equipment. He denied feeling weak. PCP is Vincent Winters. Patient states he does not remember being intubated. SW discussed positive toxicology screen with patient (MDMA). Patient denied using MDMA, states he does not use any drugs. SW asked patient if he has used drugs in the past, he states 20+ years ago. Patient continues to deny drug use and states he was upsetto hear that he was positive for that when he doesn't even know what it is. Patient reports no questions or concerns at this time, plans to return home with no services. SW can be contacted if additio nal needs arise. 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 Independent with self-care and functional mobility without [...] DVPRS (Defense and Veterans Pain Rating Scale) (Adult- Cognitively Intact) DVPRS (Defense and Veterans Pain Rating [...] Left UE Assessment Details Grossly 5/5 Hand Procurement Technician Strength Hand Procurement Technician Strength Interpretation Left above expected range (strong);Right above expected range (strong) Sit to Stand Transfer Spencer Level: Sit->Stand supervision Assistive Device: Sit->Stand gait belt Stand to Sit Transfer Spencer Level: Stand->Sit supervision Assistive Device: Stand->Sit gait belt Sitting Balance Static Sitting-Level of Assistance Independent Dynamic Sitting-Level of Assistance Independent Standing Balance Static Standing-Level of Assistance Supervision Dynamic Standing-Level of Assistance Supervision LE Dressing LE Dressing Assistance Independent LE Dressing Location edge of bed LE Dressing Intervention/Details Pt pulled up each leg to bed to doff/don bilateral plugging machine operator socks withno hands-on assist required. Patient Education/Instruction Patient Instruction/Education [...] met upon exit. ALPESH Ramos, OTR/L 09/23/2023 * Brittney Ma, PT - 09/23/2023 2:25 PM EST 12/08/23 1425 Time In/Out Time In 1425 Time [...] railing 4 - No Assistance PRIOR LEVEL AM-[facility] Mobility Raw Score 24 PRIOR LEVEL AM-PAC [...] in ICU, patient forgot after 4 minutes andneeded re-orientation again.) Following Commands Follows one step [...] by bending over, pullig R LE up topull brief off, required mod assist of PT and his own upper extremity assist to maintain upright.) Standing-Balance Support Gait belt;Left hand held assist (R UE lean onto bed rail) Rolling/Turning Mobility Spencer Level: Rolling/Turning independent Scooting Bridging Mobility Spencer Level: Scooting/Bridging independent Supine to Sit Mobility Spencer Level: Supine->Sit independent Skilled Intervention/Details: Supine->Sit Patient did require to sit EOB for short period prior to transition to stand. BP taken and no decrease from baseline. Sit to Stand Transfer Spencer Level: Sit->Stand minimum assist (75% patient effort) Skilled Intervention/Details: Sit->Stand Assist needed d/t inability to maintain in one plane ofmovement, compensated for balance and/or functional weakness with a deviation to straight sit to stand. Bed-Chair Transfer Spencer Level: Bed<->Chair (pt declined up to chair) Gait Assessment Spencer Level: Gait moderate assist (50% patient effort) [...] the bed, patient w/ scissored gait) CURRENT AM-[facility] Basic Mobility Inpatient Short Form Turning [...] a railing 1 - Total Assistance CURRENT [facility] Mobility Raw Score 17 CURRENT [facility] Mobility Functional Limitation/Modifier 50.57% Currently Impaired in [...] Therapy Interventions balance training;functional activity tolerance;gait training;neuromuscular re-education;strengthening;transfer training Eval Complexity Assessment History Components Moderate [...] falls. States he had multiple hospitalizations in [facility] previously for infection. Evaluation as noted, [...] address limitations and continue to assess for long- term problems versus acute due to encephalopathy. PT [...] entry/exit into the home/community. Brittney Ma PT * Cecil Ivan APRN-TAKE AWAY MAN - 09/23/2023 11:25 AM EST DAILY PROGRESS NOTE Admit Date: 09/21/2023 Date of Evaluation: 1:25 AM [facility] LOS: 2 days SUBJECTIVE: Patient seen and examined. Chart, medications, labs all reviewed. Patient denies all reports of Headache, Blurred Vision, Lightheadedness, Dizziness, Fever, Chills, Nausea, Vomiting, Diarrhea, or Pain. No overnight events Doing well off the vent following extubation Stable on room air Delirium resolved - A/O now Vital Signs: Blood pressure 155/72, pulse 91, temperature 97.8 F (36.6 C), temperature source Oral,resp. rate 13, height 1.829 m (6'), weight 85.5 kg (188 lb 9.6 oz), SpO2 97 %. O2 Sat (%): 97 % (09/23 1114) O2 Device: room air (09/23 1114) Intake and Output: Intake/Output Summary (Last 24 [...] 650 mg 650 mg Oral Q4H PRN Cecil Ivan APRN-PARKER Atorvastatin (LIPITOR) tablet 10 mg 10 mg Oral QHS Cecil Ivan APRN-PARKER Insulin regular (HUMULIN R;NOVOLIN R) injection Subcutaneous [...] injection 40 mg 40 mg Subcutaneous Daily Cecil Ivan APRN-TAKE AWAY MAN 40 mg at 09/23/23 0847 hydrALAZINE (APRESOLINE) injection 20 mg 20 mg Intravenous Q4H PRN Cecil Ivan APRN-PARKER Ipratropium-albuterol (DUONEB) 0.5-2.5 (3) MG/3ML nebulizer solution 3 mL 3 mL Nebulization Q4H PRNSkatlyn Ivan APRN-PARKER Labetalol (NORMODYNE) injection 20 mg 20 mg Intravenous Q6H PRN Cecil Ivan MARINE SERVICE MANAGER-PARKER Lisinopril (PRINIVIL) tablet 10 mg 10 mg Oral Q12H Cecil Ivan APRN-PARKER Ondansetron 4mg/2ml (ZOFRAN) injection 4 mg 4 mg Intravenous Q4H PRN Cecil Ivan APRN-PARKER Pantoprazole (PROTONIX) tablet DR 40 mg 40 mg Oral Daily Cecil Ivan APRN-PARKER Diagnostics: Lab Results Component Value Date WBC [...] diet. Resume home medications as appropriate and follow- up with PCP after discharge for continued evaluation and management. Code Status: Full Code GI/DVT Prophylaxis: Protonix/Lovenox 6 minutes spent of TAKE AWAY MAN time including assessment, planning, and discussion with nursing staff and patient Associated attestation - Karl Bird MD - 09/23/2023 6:37 PM EST I have personally seen and examined Ortiz Gorman. I have personally reviewed all available clinicaldata related to this encounter including, but not limited to, radiolgraphs and reports, laboratory data, and procedure reports. I have been involved in formulation of the assessment and plan. DOS: 09/23/2023 HPI: AAOx3, amnesia to events since admission very active mejia per sons has intermittent episodes of confusion. [...] the floor, including communicating with EDMD and PAT time. Not including procedure time or overlap with other Provider's time. Contact me if you need any clarification. Karl Bird MD Please note: Portions of this note utilized [employer] dictation software, please excuse any typographical or grammatical errors. Which inadvertently, might change the meaning and understanding. * Aracely Richard, MARINE SERVICE MANAGER-TAKE AWAY MAN - 09/23/2023 11:01 AM EST Neurology Inpatient Progress Note (Video) [facility] 09/23/2023 Patient: Ortiz Gorman Date of : 1975 (47 y.o.) Referring Provider: Refer to consult order in electronic medical record PCP: Vincent Winters ASSESSMENT: Principal Diagnosis: Acute respiratory failure Active Pertinent Problems and Diagnoses Present on Admission: Acute respiratory failure Acute delirium Polysubstance use disorder Renal insufficiency Type 2 Diabetes (A1C > 6.49%) Additional Active Pertinent Problems and Diagnoses No problems updated. 47 y.o. male presented to [facility] on 09/21/2023 with AMS PLAN: Altered mentation- Cannot rule out seizure. Cannot rule out hypertensive encephalopathy with hyperammonemia, dehydration, uncontrolled DM, and various metabolic disturbances contributing. MRI did notreveal any acute intracranial abnormalities EEG Medical team [...] pressure at home. Has DM and reports fluctuatingglucose readings. The patient denies illicit substance abuse. [...] Knowledge: Normal CRANIAL NERVES: II - Visual Baker: Normal II, III: Pupils: PERRL III, IV, : Eye Movements: Normal (EOMI, No ptosis, No nystagmus) V - Facial Sensation: Normal VII: Face Symmetry & Strength: Normal VIII - Hearing: Normal IX, X - Palate:: Normal XI - Shoulder Shrug: Normal XII - Tongue Protrusion: Normal COORDINATION & GROSS MOTOR: Abnormal Movements: None Coordination Jvdaki-yv-Pugi: Normal Coordination Intb-Oagb-Vshz: Normal Drift: None Tone: Normal Bulk: Normal [...] conducted by the provider in the office: [address] [place] [address] and the patient offsite: [facility] Time spent in medical discussion with patient 38 minutes Associated attestation - Cecil Yu MD - 09/23/2023 3:21 PM EST I have personally visualized and examined Ortiz Gorman and I agree with the physical exam as statedbelow. I have personally reviewed all available clinical data related to today's encounter including, but not limited to, radiology images and reports, laboratory data, and procedure reports. I have been fully involved in formulation of the assessment and plan and agree with the TAKE AWAY MAN findings and plan of care as documented. [...] cranial cerebral artery stenosis or occlusion. The patientdid have a toxic screen positive for benzodiazepines [...] Portions of this chart were created using [employer] electronic dictation. Please excuse any typographical or grammatical errors contained herein as a result. * Natty Desai - 09/23/2023 9:31 AM EST [facility] SPEECH-LANGUAGE PATHOLOGY Inpatient Clinical Dysphagia Evaluation Date of Admission: 09/21/2023 Date of Evaluation: 09/23/2023 Attending Physician: Karl Bird MD Admitting Diagnosis: ICD-10-CM 1. Altered mental status, unspecified altered mental status type R41.82 2. Hypertensive emergency I16.1 Treating Diagnosis: Dysphagia, other R13.19 Current Method of Nutrition: NPO without meds History of Presenting Illness: Ortiz Gorman is a 47 y.o. male who presents to [facility] ICU given AMS. He was intubated on 09/21/23 and extubated on 09/22/23. His drug screen was positive for Brian and MDMA. A Brain MRI from yesterday found no acute process. Ortiz Gorman was referred for a dysphagia evaluation given extubation and AMS. Prior CHIEF ENGINEER history/Instrumentals: No previous history of ST. No [...] phase appears WFL. STRATEGIES TRIALED/Response N/A N/A [place] Swallow Screen: (administered by: Nursing) [place] Swallow Screening Screening Exclusion Criteria: unable to remain alert for testing [place] Swallow Screening Result: excluded from swallow screen = NPO Clinical Impressions Ortiz Gorman is a 47 y.o. male seen [...] 1x follow up Duration: 1 week Goals: Long-Term: Ortiz Gorman will be able to consume a Regular with Thin Liquids independently with no evidence of pulmonary or nutritional compromise. Short term: Ortiz Gorman will consume recommended diet with adequate clearing and no symptoms of penetration/aspiration. Ortiz Gorman will participate in ongoing assessment for diet advancement and/or readiness for instrumental evaluation of swallowing. Ortiz Gorman will consume therapeutic trials of thin liquids without signs/symptoms of penetration/aspiration. Ortiz Gorman and/or family will demonstrate adequate comprehension of clinical education regarding dysphagia diagnosis, diet, and treatment recommendations. CHIEF ENGINEER will assist in establishing adequate oral hygiene for reduced risk of pulmonary compromise given dysphagia diagnosis. Natty Desai MS, [facility]-CHIEF ENGINEER Speech-Language Pathologist Total Treatment Time: 15 minutes * TAN Moctezuma - 09/22/2023 3:42 PM EST Chart reviewed. Patient extubated this afternoon. SW attempted to speak with patient x2 after extubation, neurology in room and then patient was at MRI. Will continue to follow. [facility]* Nursing Notes - Natalio Naranjo RN - 09/23/2023 12:00 PM EST Head to toe reassessment completed by sign writer hand and is unchanged from previous head to toe assessment,please refer to flow sheets. [facility]12-08-2023 Procedure note* Coretta Uyak - 09/23/2023 11:36 AM ESTAssociated Order(s): EEG AWAKE, ROUTINE Interpreting physician: Cecil Yu M.D. This is a routine EEG performed on a 47 y.o. year-old male using standard 10-20 lead placement and a [employer] system. All data was obtained digitally and is available for reformatting and re-montage. There is continuous slow generalized activity in the 1-3 Hz range and 20-40 Microvolts amplitude range recorded in A generalized pattern throughout the record. There is some theta activity in the 4-6Hz range and 20-40 microvolts amplitude range recorded intermixed throughout the record. There is no discernible posterior dominant rhythm which differentiates itself from the generalized slowing. There is no epileptiform activity recorded during the record. There are no seizures recorded duringthe record. Impression: This is an abnormal EEG due to continuous slow generalized activity consistent with a moderate diffuse encephalopathy. [facility]12-08-2023 Procedure note* Coretta Ohcoa - 09/23/2023 11:36 AM ESTAssociated Order(s): EEG AWAKE, ROUTINE Interpreting physician: Cecil Yu M.D. This is a routine EEG performed on a 47 y.o. year-old male using standard 10-20 lead placement and a [employer] system. All data was obtained digitally and is available for reformatting and re-montage. There is continuous slow generalized activity in the 1-3 Hz range and 20-40 Microvolts amplitude range recorded in A generalized pattern throughout the record. There is some theta activity in the 4-6Hz range and 20-40 microvolts amplitude range recorded intermixed throughout the record. There is no discernible posterior dominant rhythm which differentiates itself from the generalized slowing. There is no epileptiform activity recorded during the record. There are no seizures recorded duringthe record. Impression: This is an abnormal EEG due to continuous slow generalized activity consistent with a moderate diffuse encephalopathy. [facility] Plan of care note* Plan of Care - Natty Desai - 09/23/2023 9:39 AM EST Problem: Dysphagia (Adult) Goal: Functional/Safe Swallow Description: Diet Recommendations and Strategies Regular Thin Liquids Meds whole with thin liquid Plan of Care: Frequency: 1x follow up Duration: 1 week Goals: Long-Term: Ortiz Gorman will be able to consume a Regular with Thin Liquids independently with no evidence of pulmonary or nutritional compromise. Short term: Ortiz Gorman will consume recommended diet with adequate clearing and no symptoms of penetration/aspiration. Ortiz Gorman will participate in ongoing assessment for diet advancement and/or readiness for instrumental evaluation of swallowing. Ortiz Gorman will consume therapeutic trials of thin liquids without signs/symptoms of penetration/aspiration. Ortiz Gorman and/or family will demonstrate adequate comprehension of clinical education regarding dysphagia diagnosis, diet, and treatment recommendations. CHIEF ENGINEER will assist in establishing adequate oral hygiene for reduced risk of pulmonary compromise given dysphagia diagnosis. Outcome: Ongoing [facility]12-08-2023 Nurse Note* Nursing Notes - Sujatha Walker RN - 09/23/2023 5:07 AM EST Patient more alert than previous assessment, this nurse asked patient if he remembers any events that has happened in the last day, he said he does remember a tube being down his thoat, but does not remember why. Educated patient on what happened. [facility]12-08-2023 Nurse Note* Nursing Notes - Sujatha Walker RN - 09/23/2023 3:16 AM EST Patient able to tell this nurse it is 2022, still states he is at [facility], when reoriented that he is in [place] he states shoot I knew that . Patient pleasant but still restless in the bed, continues to roll in circles, and get up on hands and knees and rock back and forth. [facility]12-08-2023 Nurse Note* Nursing Notes - Sujatha Walker RN - 09/23/2023 2:35 AM EST Patient had episode of bowel incontinence. Patient cleaned, and placed in a brief, linens changed as well. [facility] [place] [employer] [id number] Nurse Note* Nursing Notes - Sujatha Walker RN - 09/22/2023 11:30 PM EST Patient continues to pull lines and lead at this time. Patient pulled IV out. This nurse placed newiv in left hand at this time. [facility] [employer] [id number] Nurse Note* Nursing Notes - Sujatha Walker RN - 09/22/2023 8:30 PM EST Patient continues to roll around in bed, and get on his hands and knees in the bed. This nurse redirected patient at this time. [facility] [employer] [id number] Nurse Note* Nursing Notes - Sujatha Walker RN - 09/22/2023 7:35 PM EST Patient calm, but remains confused at this time. Stated he is at [facility], the year is 2002, and Roger is the president. Redirected patient at this time. [facility]12-07-2023 Nurse Note* Nursing Notes - Jennifer Lopez RN - 09/22/2023 6:44 PM EST Patient responses to staff when he wants too. Patient incontinent of stool for second time. Patientcleaned and repositioned wires and IV tubing untangled. Tele leads replaced. IV flushed with blood return in left should IV, patient shook head 'no' when asked if that was painful. Iv fluids started in that are. Patient's face is flushed and skin feels hot to touch. 99.2 was temp on temporal thermometer. Jennifer Lopez RN [facility]12-07-2023 Nurse Note* Nursing Notes - Jennifer Lopez RN - 09/22/2023 5:12 PM EST Patient had rolled back on his side. IV's hooked back up. Importance of IV's explained to patient, patient nodded head in yes' motion. Iv's running for less then 5 minutes when patient rolled back up to all fours, which does not allow IV to run. Other IV site is left should is red and is difficultto flush. Due to patient's position, unable to attempt new IV sight placement at this time. Jennifer Lopez RN [facility]12-07-2023 Nurse Note* Nursing Notes - Jennifer Lopez RN - 09/22/2023 4:24 PM EST Patient is currently on all fours in bed, rocking back an fourth. Patient, will not roll over on toback for staff. Patient does not answer staff when they ask him to roll over or if he is having pain anywhere. Unable to get IV in Right AC to run with how patient is holding his arms. Will attempt to run IV's whenever patient returns to a proper position in the bed. Jennifer Lopez RN [facility]12-07-2023 Nurse Note* Nursing Notes - Jennifer Lopez RN - 09/22/2023 3:07 PM EST Delia discontinued per MD. Patient going to MRI. Neuro in to see. Jennifer Lopez RN [facility]12-07-2023 Nurse Note* Nursing Notes - Jennifer Lopez RN - 09/22/2023 2:17 PM EST Patient still drowsy, wakes for a brief moment, will open eyes and look at you but will shake his head no to any question asked him. Son's updated on plan of care for patient. Jennifer Lopez RN [facility]12-07-2023 Nurse Note* Nursing Notes - Jennifer Lopez RN - 09/22/2023 1:56 PM EST Patient was extubated at 1340, patient is drowsy but vitals are stable. Neurology consult made. RSVswab done and sent to lab. Son's at bedside. Jennifer Lopez RN [facility]12-07-2023 Progress note* Therapy Note - Salazar Holley, YASH - 09/22/2023 1:36 PM EST Patient extubated and placed on 2LPM nasal cannula. [facility]12-07-2023 Consult note* RODRIGUEZ Serrano - 09/22/2023 1:28 PM ESTAssociated Order(s): IP CONSULT TO NEUROLOGY Neurology Inpatient Consult (Video) [facility] 09/22/2023 Patient: Ortiz Gorman Date of : 1975 (47 y.o.) Referring Provider: Refer to consult order in electronic medical record PCP: Vincent Winters ASSESSMENT: Principal Diagnosis: Acute respiratory failure Active Pertinent Problems and Diagnoses Present on Admission: Acute respiratory failure Acute delirium Polysubstance use disorder Renal insufficiency Additional Active Pertinent Problems and Diagnoses No problems updated. 47 y.o. male presented to [facility] on 09/21/2023 with AMS PLAN: [...] staff, medical record. History of Present Illness Ortiz Gorman is a 47 y.o. male with past medical history of DM, HTN. 09/21/23- Patient presented to Er for Ams. Patient was found altered by his sone. He was noted to becombative with EMS. Medicated with 7.5mg of Versed [...] any significant history. Denies any recent illness. Hedenies any focal neurological deficits. He follows some [...] Knowledge: impaired CRANIAL NERVES: II - Visual Baker: intact to visual threat II, III: Pupils: PERRL III, IV, : Eye Movements: Normal (EOMI, No ptosis, No nystagmus) V - Facial Sensation: Normal VII: Face Symmetry & Strength: DNFC VIII - Hearing: Normal IX, X - Palate:: Normal XI - Shoulder Shrug: DNFC XII - Tongue Protrusion: Normal COORDINATION & GROSS MOTOR: Abnormal Movements: None Coordination Ljnujt-aq-Ctag: Normal Coordination Abin-Hrgv-Tjav: Normal- requires demonstration Drift: None Tone: Normal Bulk: Normal MUSCLE STRENGTH: Hand grasp equal bilaterally. Able to overcome antigravity and maintain. SENSATION: Fine Touch: Normal Patient verbally consents to the submissions of a Video health visit, patient is aware of the risks, benefits, and possible coinsurance/copay cost. Video was conducted by the provider in the office: [address] [place] [address] and the patient offsite: [facility] Time both providers spent in medical discussion with patient 72 minutes Aracely Richard APRN-[facility] Associated attestation - Cecil Yu MD - 09/22/2023 9:22 PM EST I have personally visualized and examined Ortiz Gorman and I agree with the physical exam as statedbelow. I have personally reviewed all available clinical data related to today's encounter including, but not limited to, radiology images and reports, laboratory data, and procedure reports. I have been fully involved in formulation of the assessment and plan and agree with the [facility] findings and plan of care as [...] cranial cerebral artery stenosis or occlusion. The patientdid have a toxic screen positive for benzodiazepines [...] Portions of this chart were created using [employer] electronic dictation. Please excuse any typographical or grammatical errors contained herein as a result. [facility]12-07-2023 Consult note* Aracely Richard MARINE SERVICE MANAGER-TAKE AWAY MAN - 09/22/2023 1:28 PM ESTAssociated Order(s): IP CONSULT TO NEUROLOGY Neurology Inpatient Consult (Video) [facility] 09/22/2023 Patient: Ortiz Gorman Date of : 1975 (47 y.o.) Referring Provider: Refer to consult order in electronic medical record PCP: Vincent Winters ASSESSMENT: Principal Diagnosis: Acute respiratory failure Active Pertinent Problems and Diagnoses Present on Admission: Acute respiratory failure Acute delirium Polysubstance use disorder Renal insufficiency Additional Active Pertinent Problems and Diagnoses No problems updated. 47 y.o. male presented to [facility] on 09/21/2023 with AMS PLAN: [...] is being seen at the request of eGovanna Ivan APRN for evaluation of delirium. Informant(s): Patient is unable to provide significant history, medical staff, medical record. History of Present Illness Ortiz Gorman is a 47 y.o. male with past medical history of DM, HTN. 09/21/23- Patient presented to Er for Ams. Patient was found altered by his sone. He was noted to becombative with EMS. Medicated with 7.5mg of Versed [...] any significant history. Denies any recent illness. Hedenies any focal neurological deficits. He follows some [...] Knowledge: impaired CRANIAL NERVES: II - Visual Baker: intact to visual threat II, III: Pupils: PERRL III, IV, : Eye Movements: Normal (EOMI, No ptosis, No nystagmus) V - Facial Sensation: Normal VII: Face Symmetry & Strength: DNFC VIII - Hearing: Normal IX, X - Palate:: Normal XI - Shoulder Shrug: DNFC XII - Tongue Protrusion: Normal COORDINATION & GROSS MOTOR: Abnormal Movements: None Coordination Hbjirf-wf-Ycjo: Normal Coordination Jumc-Ufht-Ilzn: Normal- requires demonstration Drift: None Tone: Normal Bulk: Normal MUSCLE STRENGTH: Hand grasp equal bilaterally. Able to overcome antigravity and maintain. SENSATION: Fine Touch: Normal Patient verbally consents to the submissions of a Video health visit, patient is aware of the risks, benefits, and possible coinsurance/copay cost. Video was conducted by the provider in the office: [address] [place] [address] and the patient offsite: [facility] Time both providers spent in medical discussion with patient 72 minutes Aracely Richard APRN-[facility] Associated attestation - Cecil Yu MD - 09/22/2023 9:22 PM EST I have personally visualized and examined Ortiz Gorman and I agree with the physical exam as statedbelow. I have personally reviewed all available clinical data related to today's encounter including, but not limited to, radiology images and reports, laboratory data, and procedure reports. I have been fully involved in formulation of the assessment and plan and agree with the TAKE AWAY MAN findings and plan of care as documented. [...] cranial cerebral artery stenosis or occlusion. The patientdid have a toxic screen positive for benzodiazepines [...] Portions of this chart were created using [employer] electronic dictation. Please excuse any typographical or grammatical errors contained herein as a result. [facility] Progress note* Therapy Note - Salazar Holley RRT - 09/22/2023 12:21 PM EST ABG results given to Dr. Bird. [facility]12-07-2023 Progress note* Therapy Note - Salazar Holley RRT - 09/22/2023 12:[address] Bird called regrding abg results. No answer. Message left. [facility]12-07-2023 Progress note* Therapy Note - Salazar Holley RRT - 09/22/2023 11:12 AM EST PSV trial started with PS and PEEP 5, FIO2 30%. VT 432 mL, minute volume 7.33 L. HR 78, RR12, SpO2 99%. At 1126, HR 59, SpO2 100%, RR 18, Vt 446 mL, minute volume 8.15L. At 1204, HR 82, SpO2 100%, RR15, Vt 709 mL, minute volume 12.4L. ABG was drawn. Patient remains in PS mode. [facility]12-07-2023 History and physical note* Cecil Ivan, FAYE-TAKE AWAY MAN - 09/22/2023 10:05 AM EST History and Physical Examination 09/21/2023 4:24 PM Chief Complaint Patient presents with Other Unresponsive. Snoring respirations and periods of apnea History of Present Illness: The patient is a 47-year-old male who presented to the emergency department for evaluation of acutedelirium. Please note that the patient is currently [...] well as MDMA. The patient was found ida significantly hypertensive was started on a Cardene drip. He was admitted to the ICU for furtherevaluation and management. Overnight the patient's blood pressure did respond to the Cardene and he ultimately became slightlyhypotensive with worsening combativeness. The patient's propofol was switched to Precedex. Since then the patient was resting comfortably throughout the evening. Chest x-ray obtained was nonacute. Hem odynamics have been stable. No past medical history [...] Temporal 100 -- 100 % -- -- 09/22/23 0430 -- -- -- 101 -- 100 % -- -- 09/22/23 0420 -- -- -- 102 -- -- -- -- 09/22/23 0419 145/77 -- -- 104 -- -- -- -- 09/22/23 0410 -- -- -- 124 -- 95 % -- -- 09/22/23 0400 (!) 237/101 -- -- 134 -- 100 % 1.829 m (6') 85.5 kg (188 lb 9.6 oz) 09/22/23 0350 (!) 240/105 -- -- 144 -- (!) 85 % -- -- 09/22/23 0346 -- -- -- -- -- 100 % -- -- 09/22/23 0340 (!) 248/112 -- -- 144 -- (!) [...] 09/21/2023 YELLOW APPEARANCE, URINE 09/21/2023 CLEAR Specific Fairborn, Urine 09/21/2023 >1.030 (H) PH URINE 09/21/2023 [...] GLUCOSE, POINT OF CARE 09/21/2023 232 (H) Chief Program Officer 09/21/2023 206,283 MAGNESIUM 09/21/2023 2.0 GLUCOSE, POINT OF CARE 09/21/2023 158 (H) Chief Program Officer 09/21/2023 205,802 GLUCOSE, POINT OF CARE 09/22/2023 109 (H) Chief Program Officer 09/22/2023 206,346 GLUCOSE, POINT OF CARE 09/22/2023 95 Chief Program Officer 09/22/2023 205,802 WBC (WHITE BLOOD COUNT) 09/22/2023 [...] 99. GLUCOSE, POINT OF CARE 09/22/2023 80 Chief Program Officer 09/22/2023 206,124 MAGNESIUM 09/22/2023 2.0 Impression and [...] Cecil Ivan, PARKER completing HPI for Dr. Bird 16 minutes spent of TAKE AWAY MAN time including assessment, planning, and discussion with nursing staff and patient Please note Portions of this note utilized [employer] dictation software, please excuse any typographical or grammatical errors Associated attestation - Karl Bird MD - 09/22/2023 10:40 PM EST I have personally seen and examined Ortiz Gorman. I have personally reviewed all available clinicaldata related to this encounter including, but not limited to, radiolgraphs and reports, laboratory data, and procedure reports. I have been involved in formulation of the assessment and plan. DOS: 09/22/2023 HPI: very active mejia per sons has intermittent episodes of confusion. Was found very confused and agitated so was given versed by EMT and had to be intubated to protect airway. Today morning did good with extubation protocol but when I saw him he was still very obtunded. Overnight had periods ofsevere agitation needing haldol, precedex and diprivan caused [...] the floor, including communicating with EDMD and PAT time. Not including procedure time or overlap with other Provider's time. Contact me if you need any clarification. Karl Bird MD Please note: Portions of this note utilized [employer] dictation software, please excuse any typographical or grammatical errors. Which inadvertently, might change the meaning and understanding. [facility] + Plan [facility]* Assessment & Plan Note - RODRIGUEZ Shepherd - 09/22/2023 10:05 AM ESTAssociated Problem(s): Polysubstance use disorder Positive for benzos and MDMA Complete cessation will be advised [facility]12-07-2023 History and physical note* RODRIGUEZ Shepherd - 09/22/2023 10:05 AM EST History and Physical Examination 09/21/2023 4:24 PM Chief Complaint Patient presents with Other Unresponsive. Snoring respirations and periods of apnea History of Present Illness: The patient is a 47-year-old male who presented to the emergency department for evaluation of acutedelirium. Please note that the patient is currently [...] well as MDMA. The patient was found ida significantly hypertensive was started on a Cardene drip. He was admitted to the ICU for furtherevaluation and management. Overnight the patient's blood pressure did respond to the Cardene and he ultimately became slightlyhypotensive with worsening combativeness. The patient's propofol was switched to Precedex. Since then the patient was resting comfortably throughout the evening. Chest x-ray obtained was nonacute. Hem odynamics have been stable. No past medical history [...] -- 101 -- 100 % -- -- 09/22/23 0420 -- -- -- 102 -- -- -- -- 09/22/239 145/77 -- -- 104 -- -- -- -- 09/22/23 0410 -- -- -- 124 -- 95 % -- -- 09/22/23 0400 (!) 237/101 -- -- 134 -- 100 % 1.829 m (6') 85.5 kg (188 lb 9.6 oz) 09/22/23 0350 (!) 240/105 -- -- 144 -- (!) 85 % -- -- 09/22/23 0346 -- -- -- -- -- 100 % -- -- 09/22/23 0340 (!) 248/112 -- -- 144 -- (!) [...] 09/21/2023 YELLOW APPEARANCE, URINE 09/21/2023 CLEAR Specific Fairborn, Urine 09/21/2023 >1.030 (H) PH URINE 09/21/2023 [...] GLUCOSE, POINT OF CARE 09/21/2023 232 (H) Chief Program Officer 09/21/2023 206,283 MAGNESIUM 09/21/2023 2.0 GLUCOSE, POINT OF CARE 09/21/2023 158 (H) Chief Program Officer 09/21/2023 205,802 GLUCOSE, POINT OF CARE 09/22/2023 109 (H) Chief Program Officer 09/22/2023 206,346 GLUCOSE, POINT OF CARE 09/22/2023 95 Chief Program Officer 09/22/2023 205,802 WBC (WHITE BLOOD COUNT) 09/22/2023 [...] 99. GLUCOSE, POINT OF CARE 09/22/2023 80 Chief Program Officer 09/22/2023 206,124 MAGNESIUM 09/22/2023 2.0 Impression and [...] Cecil Ivan CNP completing HPI for Dr. Bird 16 minutes spent of TAKE AWAY MAN time including assessment, planning, and discussion with nursing staff and patient Please note Portions of this note utilized [facility] [employer] software, please excuse any typographical or grammatical errors Associated attestation - Karl Bird MD - 09/22/2023 10:40 PM EST I have personally seen and examined Ortiz Gorman. I have personally reviewed all available clinicaldata related to this encounter including, but not limited to, radiolgraphs and reports, laboratory data, and procedure reports. I have been involved in formulation of the assessment and plan. DOS: 09/22/2023 HPI: very active mejia per sons has intermittent episodes of confusion. Was found very confused and agitated so was given versed by EMT and had to be intubated to protect airway. Today morning did good with extubation protocol but when I saw him he was still very obtunded. Overnight had periods ofsevere agitation needing haldol, precedex and diprivan caused [...] the floor, including communicating with EDMD and PAT time. Not including procedure time or overlap with other Provider's time. Contact me if you need any clarification. Karl Bird MD Please note: Portions of this note utilized [employer] dictation software, please excuse any typographical or grammatical errors. Which inadvertently, might change the meaning and understanding. [facility] + Plan note * Assessment & Plan Note - RODRIGUEZ Shepherd - 09/22/2023 10:04 AM ESTAssociated Problem(s): Acute respiratory failure Patient without hypoxia - Intubated due to combativeness Attempt wean/extubate today CXR non-acute 02 per protocol, IS Routine aerosols [facility]12-07-2023 Evaluation + Plan note* Assessment & Plan Note - RODRIGUEZ Shepherd - 09/22/2023 10:04 AM ESTAssociated Problem(s): Acute delirium Secondary to drug effects CT head non-acute Supportive care [facility]12-07-2023 Nurse Note* Nursing Notes - Jennifer Lopez RN - 09/22/2023 7:56 AM EST Morning assessment completed, Patient at appropriate level of sedation. Resting comfortable in bed,eyes closed. Vitals stable. Patient's mother called in and update give. Morning Labs drawn. Jennifer Lopez RN [facility]12-07-2023 Plan of care note* Plan of Care - Jennifer Lopez RN - 09/22/2023 7:55 AM EST Problem: Patient Care Overview Goal: Plan of [...] discharge/transition of care. Outcome: Progressing Toward Goal [facility] [email or web address] [id number] Nurse Note* Nursing Notes - Amna Irvin RN - 09/22/2023 5:15 AM EST Precedex drip running, working to turn propofol down to wean off and precedex up to help keep pt calm. [facility] [email or web address] [id number] Nurse Note* Nursing Notes - Amna Irvin RN - 09/22/2023 4:20 AM EST Pt finally relaxing and less agitated, will continue to monitor. [facility] [email or web address] [id number] Nurse Note* Nursing Notes - Amna Irvin RN - 09/22/2023 3:15 AM EST Staff x4 in room to help protect pt as he is restless and agitated, sit up in bed, Dr. Bird notified to verify earlier order to change to precedex and discontinue propofol, states to proceed with this as stated earlier. [facility] [email or web address] [id number] Nurse Note* Nursing Notes - Amna Irvin RN - 09/22/2023 2:45 AM EST Pt awakens suddenly and quickly becomes agitated, due to situation propofol increased to try to calm pt. [facility] [employer]12-07-2023 Nurse Note* Nursing Notes - Amna Irvin RN - 09/22/2023 1:15 AM EST Sedation titrated down due to low BP, pt then becomes very agitated and combative, BP increases, propofol titrated back up and pt calms, Dr. Bird notified of this, orders received. [facility]12-06-2023 Nurse Note* Nursing Notes - Amna Irvin RN - 09/21/2023 9:30 PM EST Attempt to place OG without success, and then attempt NG also without success, pt becomes agitated during this, propofol adjusted. [facility]12-06-2023 Emergency department Note* Josie Hannah RN - 09/21/2023 9:24 PM EST Call to family to update on transferr to ICU. Call to Sherly Gentile @ [phone]. [facility]12-06-2023 Emergency department Note* Josie Hannah RN - 09/21/2023 9:24 PM EST Call to family to update on transferr to ICU. Call to Mom Sherrie Gentile @ [phone]. * Sirena Hernandez RN - 09/21/2023 8:32 PM EST This RN speaks with loop and gives them patient name. * Josie Hannah RN - 09/21/2023 7:00 PM EST Multiple attempts at OG/NG tube placement unsuccessful, Dr Beltran aware. * Sirena Hernandez RN - 09/21/2023 6:18 PM EST Multiple attempts to place OG and NG tube by vito RN, Deanna Barbosa RN, and Martina OCONNELL. All attempts unsuccessful. Family is waiting room, Dr Beltran aware and states he will talk with family. * Sirena Hernandez RN - 09/21/2023 5:35 PM EST Attempting to place OG tube. Patient is agitated and pulling arms and kicking legs. Dr Beltran aware. Verbal order to place vecuronium. * Sirena Hernandez RN - 09/21/2023 4:53 PM EST Lab bedside * Sirena Hernandez RN - 09/21/2023 4:44 PM EST Patient has abrasions to bilateral shins. Blood on patients jeans. * Reginaldo Beltran MD - 09/21/2023 4:33 PM EST EMERGENCY DEPARTMENT RE[place] [facility] [place] DATE: 09/21/23 PCP: Vincent Winters CHIEF COMPLAINT: Altered mental status HPI: Ortiz Gorman is a 47 y.o. male who [...] Temp Temp src Pulse Resp SpO2 Weight 09/21/233 113/64 97.2 F (36.2 C) Axillary 95 [...] Patient admitted to the ICU under the herd tester service for further evaluation and treatment. ORDERS/RESULTS: [...] CARE 232 (H) 70 - 100 MG/DL Chief Program Officer 206,283 ARTERIAL BLOOD GAS Result Value Ref [...] YELLOW YELLOW APPEARANCE, URINE CLEAR CLEAR Specific Fairborn, Urine >1.030 (H) 1.010 - 1.025 PH [...] Patient administered etomidate followed by vecuronium. The #3 GlideScope blade was inserted into patient's oral [...] Portions of this chart were created using [employer] electronic dictation. Please excuse any typographical or grammatical errors contained herein. Reginaldo Beltran MD 09/21/232117 * Sirena Hernandez RN - 09/21/2023 4:25 PM EST BS 256. * Sirena Hernandez RN - 09/21/2023 4:22 PM EST Pt EMS patient was found at home by son and was unresponsive. Pt became combative en route to ED and was placed in soft restraints and given 7.5 mg versed. Pt arrives to ED unresponsive. * Sirena Hernandez RN - 09/21/2023 4:[address] Beltran and respiratory bedside, * Sirena Hernandez RN - 09/21/2023 4:21 PM EST Pt unresponsive. Per EMS, patient was found home by son and was unresponsive. Per ems [facility]* Nursing Notes - Amna Irvin RN - 09/21/2023 9:00 PM EST On admission to [facility] ICU, from ED a dual RN initial assessment of skin condition was performed by Amna Irvin RN and Joseline Paez RN. Skin Assessment: Skin within defined limits:Yes Pt has some scabs and abrasions to bilateral shins. Derek Score: 12 LDA Added:No Amna Irvin RN [facility]12-06-2023 Nurse Note* Nursing Notes - Amna Irvin RN - 09/21/2023 8:45 PM EST Loop here as pt arrives to ICU, [facility]12-06-2023 Emergency department Note* Sirena Hernandez RN - 09/21/2023 8:32 PM EST This RN speaks with loop and gives them patient name. [facility]12-06-2023 Emergency department Note* Josie Hannah RN - 09/21/2023 7:00 PM EST Multiple attempts at OG/NG tube placement unsuccessful, Dr Beltran aware. [facility]12-06-2023 Emergency department Note* Sirena Hernandez RN - 09/21/2023 6:18 PM EST Multiple attempts to place OG and NG tube by this RN, Deanna Barbosa RN, and Martina OCONNELL. All attempts unsuccessful. Family is waiting room, Dr Beltran aware and states he will talk with family. [facility]12-06-2023 Emergency department Note* Sirena Hernandez RN - 09/21/2023 5:35 PM EST Attempting to place OG tube. Patient is agitated and pulling arms and kicking legs. Dr Beltran aware. Verbal order to place vecuronium. [facility]12-06-2023 Emergency department Note* Sirena Hernandez RN - 09/21/2023 4:53 PM EST Lab bedside [facility]12-06-2023 Emergency department Note* Sirena Hernandez RN - 09/21/2023 4:44 PM EST Patient has abrasions to bilateral shins. Blood on patients jeans. [facility]12-06-2023 Progress note* Therapy Note - Cami Meyer RCP - 09/21/2023 4:36 PM EST Ventilator initiated at this time. Refer to flowsheets for settings and readings. [facility]12-06-2023 Physician Emergency department Note* Reginaldo Beltran MD - 09/21/2023 4:33 PM EST EMERGENCY DEPARTMENT RE[place] [facility] [place] DATE: 09/21/23 PCP: Vincent Winters CHIEF COMPLAINT: Altered mental status HPI: Ortiz Gorman is a 47 y.o. male who [...] Extremities: No lower extremity pitting edema. Neurological: Vest coma Scale: 3. VITAL SIGNS DURING ED [...] Patient admitted to the ICU under the herd tester service for further evaluation and treatment. ORDERS/RESULTS: [...] CARE 232 (H) 70 - 100 MG/DL Chief Program Officer 206,283 ARTERIAL BLOOD GAS Result Value Ref [...] YELLOW YELLOW APPEARANCE, URINE CLEAR CLEAR Specific Fairborn, Urine >1.030 (H) 1.010 - 1.025 PH [...] Patient administered etomidate followed by vecuronium. The #3 GlideScope blade was inserted into patient's oral [...] Portions of this chart were created using [employer] electronic dictation. Please excuse any typographical or grammatical errors contained herein. Reginaldo Beltran MD 09/21/232117 [facility]12-06-2023 Progress note* Therapy Note - Cami Meyer RCP - 09/21/2023 4:30 PM EST Pt intubated with size 8.0 ETT 26@ teeth by Dr Beltran. Positive color change on EtCO2 with equal breath sounds noted. Vocal cords visualized via GlideScope. SpO2 100% while being bagged with 100% FiO2. [facility]12-06-2023 Emergency department Note* Sirena Hernandez RN - 09/21/2023 4:25 PM EST BS 256. [facility]12-06-2023 Emergency department Note* Sirena Hernandez RN - 09/21/2023 4:22 PM EST Pt EMS patient was found at home by son and was unresponsive. Pt became combative en route to ED and was placed in soft restraints and given 7.5 mg versed. Pt arrives to ED unresponsive. [facility]12-06-2023 Emergency department Note* Sirena Hernandez RN - 09/21/2023 4:[address] Beltran and respiratory bedside, [facility]12-06-2023 Emergency department Note* Sirena Hernandez RN - 09/21/2023 4:21 PM EST Pt unresponsive. Per EMS, patient was found home by son and was unresponsive. Per ems [facility]07-04-2022 Hospital Discharge instructions* Instructions* Lulú Bush DO - 04/20/2022 Start taking her blood pressure medication as prescribed. Please follow-up with your doctor in the next 2 to 3 days. * Attachments The following attachments cannot be sent through Care Everywhere. * HTN (Hypertension): Diuretics: General Info (Venezuelan) [facility] [employer] Phone: evaluation + Plan note No data available for this section [facility] [place] Evaluation note* Diagnosis Acute nonintractable headache, unspecified headache type- Primary Elevated blood pressure reading Elevated blood pressure reading without diagnosis of hypertension documented in this encounter [facility] [employer] Phone: [email or web address] note* Diagnosis Essential hypertension- Primary Unspecified essential hypertension Acute headache, unspecified headache type documented in this encounter [facility] [employer] Phone: [email or web address] note* Diagnosis Acute respiratory failure- Primary Altered mental status, unspecified altered mental status type Hypertensive emergency Unspecified essential hypertension Acute delirium Other alteration of consciousness Polysubstance use disorder Renal insufficiency Unspecified disorder of kidney and ureter Type 2 Diabetes (A1C > 6.49%) [facility] Diagnosis Hypertensive encephalopathy- Primary Hypertensive emergency Unspecified essential hypertension documented in this encounter [facility] note* Diagnosis Hypertensive encephalopathy- Primary Central apnea Apnea NSTEMI (non-ST elevated myocardial infarction) ([facility]) Acute myocardial infarction, subendocardial infarction, episode of care unspecified Hypertensive emergency Unspecified essential hypertension Fever Fever, unspecified Altered mental status Encephalopathy acute Encephalopathy, unspecified Diabetic acidosis without coma ([facility]) Type II or unspecified type diabetes mellitus with ketoacidosis, not stated as uncontrolled Hypertensive urgency Unspecified essential hypertension Lactic acidosis Acidosis Central apnea Apnea documented in this encounter [facility] note* Diagnosis Hypertensive encephalopathy- Primary Diabetic ketoacidosis with coma associated with type 2 diabetes mellitus (HCC) Pneumonia of left lower lobe due to infectious organism Altered mental status, unspecified altered mental status type ABHIJIT (acute kidney injury) (HCC) Acute kidney failure, unspecified Acute respiratory failure with hypoxia Acute respiratory failure Non compliance w medication regimen Personal history of noncompliance with medical treatment, presenting hazards to health documented in this encounter [facility]* Diagnosis DKA, type 2, not at goal (HCC)- Primary Type II or unspecified type diabetes mellitus with ketoacidosis, uncontrolled Acute hypoxemic respiratory failure Abnormal electrocardiography Abnormal finding on MRI of brain Nonspecific (abnormal) findings on radiological and other examination of skull and head Diabetic ketoacidosis without coma associated with other specified diabetes mellitus (HCC) Cerebrovascular accident (CVA), unspecified mechanism (HCC) Paroxysmal atrial fibrillation (HCC) Atrial fibrillation Stage 3a chronic kidney disease (HCC) Acute hypoxemic respiratory failure NSTEMI (non-ST elevated myocardial infarction) (HCC) Acute myocardial infarction, subendocardial infarction, episode of care unspecified Acute metabolic encephalopathy Abnormal finding on MRI of brain Nonspecific (abnormal) findings on radiological and other examination of skull and head Abnormal electrocardiography ABHIJIT (acute kidney injury) (HCC) Acute kidney failure, unspecified Stage 3 chronic kidney disease (HCC) Hypertension Unspecified essential hypertension Seizures (HCC) Other convulsions Cerebrovascular accident (CVA) (HCC) Diabetic ketoacidosis without coma associated with other specified diabetes mellitus (HCC) documented in this encounter [facility] Discharge instructions* Instructions* Cheng Lira MD - [...] through Care Everywhere. * Blood Pressure: Elevated (Venezuelan) * Headache (Venezuelan) [facility] Work Phone: Hospital Discharge instructions No data available for this section [facility] [place] Progress note No data available for this section [facility] [place] Reason for referral (narrative)* (Routine) Specialty Diagnoses / Procedures Referred By Sergei barbosa Referred To Contact [facility] [place] [facility] [address] [place] [address] Referral ID Status Reason Start Date Expiration Date Visits Re quested Visits Authorized * Unlisted Procedure Code (Routine) - New Request Specialty Diagnoses / Procedures Referred By Contchase t Referred To Contact Procedures INPATIENT ADMISSION NOTIFICATION Karl Bird MD [address] [facility] [place] [address] Referral ID Status Reason Start Date Expiration Date V isits Requested Visits Authorized [id number] New Request 09/21/2023 10/15/2024 1 1 * (Routine) Specialty Diagnoses / Procedures Referred By Contac t Referred To Contact [place] [address] Referral ID Status Reason Start Date Expiration Date Visits Re quested Visits Authorized [facility] Advance Directives No Advanced Directives Records FoundLatest [...] Maker Trent Romero Child Secondary Decision Maker Documents on File Type Date Recorded Patient Residency Coordinator Expl anation ACP-Advance Directive 01/25/2024 11:19 AM Date Activated Date Inactivated Comments 01/19/2024 3:59 AM 01/22/2024 8:24 PM Date Activated Date Inactivated Comments 10/27/2021 3:33 PM 11/02/2021 6:24 PM Healthcare Agents on File Name Relationship Healthcare Agent Relationshi p Communication Shane Z Child Primary Decision Maker Trent Romero Child Secondary Decision Maker Documents on File Type Date Recorded Patient Residency Coordinator Expl anation ACP-Advance Directive 01/25/2024 11:19 AM Date Activated Date Inactivated Comments 09/28/2024 2:45 PM Date Activated Date Inactivated Comments 01/19/2024 3:59 AM 01/22/2024 8:24 PM Date Activated Date Inactivated Comments 10/27/2021 3:33 PM 11/02/2021 6:24 PM Healthcare Agents on File Name Relationship Healthcare Agent Relationshi p Communication Shane Z Child Primary Decision Maker Trent Romero Child Secondary Decision Maker Healthcare Agents on File Name Relationship Healthcare Agent Relationshi p Communication Shane Z Child Primary Decision Maker Trent Romero Child Secondary Decision Maker Date Activated Date Inactivated Comments 09/28/2024 2:45 PM 10/06/2024 11:55 PM Date Activated Date Inactivated Comments 01/19/2024 3:59 AM 01/22/2024 8:24 PM Date Activated Date Inactivated Comments 10/27/2021 3:33 PM 11/02/2021 6:24 PM Healthcare [...] History Records FoundNo Family History Records Found Reason for Referral Specialty Diagnoses / Procedures Referred By Contac t Referred To Contact Radiology Diagnoses Abnormal finding on MRI of brain Procedures MRI Brain W WO Contrast Marce Restrepo, MARINE SERVICE MANAGER - TAKE AWAY MAN [address] [address] Referral ID Status Reason Start Date Expiration Date Visits Re quested Visits Authorized [id number] Open 11/02/2024 11/02/2025 1 1 Additional Source Comments Reason for Visit (unrecogniz ed section and content) Reason Comments Headache Pt presents to the e [facility] department with complaint of Right Frontal Headache onset 3 hours travel pta. 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 Pt does have a history of neuropathy and HTN Reason Comments Other Unresponsive. Snorin g respirations and periods of apnea Specialty Diagnoses / Procedures Referred By Contac t Referred To Contact Diagnoses Acute respiratory failure Hypertensive emergency Altered mental status, unspecified altered mental status type Karl Bird MD 106 [facility] [place] Rosa [address] [facility] Referral ID Status Reason Start Date Expiration Date Visits Re quested Visits Authorized [id number] 1 1 Reason Comments Aphasia Headache Pt arrives to ED wit h slurred speech and headache weakness on left side. LKW appx 2130. Specialty Diagnoses / Procedures Referred By Contac t Referred To Contact Diagnoses Hypertensive encephalopathy Hypertensive emergency Hypertensive Emergency Sarmad Daly MD [address] [id number] [facility] [address] [place] [address] Referral ID Status Reason Start Date Expiration Date Visits Re quested Visits Authorized [id number] 1 1 Reason Comments Altered Mental Status Patient known diab etic, found by family this am on floor. Last known well was 830 PM last night. Specialty Diagnoses / Procedures Referred By Contac t Referred To Contact Diagnoses DKA, type 2, not at goal (HCC) DKA, ARF Stanley Mckenzie MD [address] [address] [facility] [id number] [place] [address] Referral ID Status Reason Start Date Expiration Date Visits Re quested Visits Authorized [id number] 1 1 Scheduled Active and Recently Administ ered Medications (unrecognized section and content) Medication Order 04/03/2022 04/04/2022 04/05/2022 0.9 % sodium chloride bolus (COMPLETED) 1,000 mL (11.6 mL/kg), IntraVENous, at 1,000 mL/hr, Administer over 1 Hours, ONCE, On 04/04/22 at 2215, For 1 dose 2214 (New Bag - Provider: Josie Donovan, RN)2353 (Stopped - Provider: Brenda Bell RN) [...] at 2215 2237 (Given - Provider: Orlando Bell, KOURTNEY) prochlorperazine (COMPAZINE) injection 10 mg (COMPLETED) 10 [...] Minutes, EVERY 8 HOURS, First dose on Rzo 09/22/23 at 1400, Until Discontinued, Do not refrigerate Extravasation Risk 1431 ($$New Bag$$ - Provider: Jennifer Lopez RN)2246 ($$New Bag$$ - Provider: Sujatha Walker RN) 0605 ($$New Bag$$ - Provider: Sujatha Walker RN)1419 (Stopped - Provider: Natalio Naranjo, KOURTNEY) albumin human 25 % injection 25 g () 25 g, Intravenous, Administer over 60 Minutes, EVERY 1 HOUR, 2 doses, First dose on Roz 09/22/23 at 1100, Last dose on Roz 09/22/23 at 1200, At [facility], in emergencies, administer as rapidly as [...] RN) 141 (Stopped - Provider: Natalio Naranjo, KOURTNEY) Dextrose 10% IV solution 250 mL(Linked Group [...] to the hypoglycemia management protocol on [facility]: Z-YQ-Wntjqppnhrfp Management Protocol Haloperidol lactate (HALDOL) injection 5 [...] dose on Tue09/23/23 at 1130, Until Discontinued 121 (Given - Provider: Natalio Naranjo RN)211 (Given - Provider: Toan Calvin RN) 0941 [...] or chew., Indications: Inpt Stress Ulcer Prophylaxis 09 (Not Given - Provider: Natalio Naranjo RN - Reason: Other - Comment: iv given this morning see mar) 0940 (Given - Provider: Eveline Elias LPN) QUEtiapine (SEROquel) tablet 100 mg 100 mg, Oral, DAILY AT BEDTIME, First dose on Tue09/23/23 at 2100, Until Discontinued 2117 (Given - Provider: Toan Calvin RN) 2100 (Canceled Entry - Provider: System Discharge - [...] Irvin RN)0530 (Rate/Dose Change - Provider: Amna Irvin RN)0600 (Rate/Dose Verify - Provider: Amna Irvin [...] RN) 0847 ($$New Bag$$ - Provider: Natalio Naranjo RN) 1629 (Stopped - Provider: Eveline Elias [...] Irvin RN)0030 (Rate/Dose Change - Provider: Amna Albaro, RN)0040 (Rate/Dose Change - Provider: Amna Irvin, [...] RN)0300 ($$New Bag$$ - Provider: Amna Irvin, RN)0305 (Rate/Dose Change - Provider: Amna Irvin, [...] 0644 0437 (Rate/Dose Verify - Provider: Amna Irvin RN)2127 (Stopped - Provider: Sujatha Walker, KOURTNEY) Sodium [...] RN) 1645 (Given - Provider: Brenda Rankin, KOUTRNEY) Ondansetron 4mg/2ml (ZOFRAN) injection 4 mg 4 [...] refer to the hypoglycemia management protocol on [facility]: O-ZU-Vkfnzkcngffp Management Protocol
And Dextrose 10% IV solution [...] at 1300, Until Specified
Who to Notify: LINE MANAGER/Physician
For all Blood Glucose LESS THAN 70 mg/dl, or greater than 400 mg/dl notify LINE MANAGER/Physician Scheduled Medication Order 01/17/2024 01/18/2024 01/19/2024 labetalol [...] sodium chloride 0.9 % 250 mL infusion (Pmoh4Yal) 2.5-15 mg/hr (25-150 mL/hr), IntraVENous, CONTINUOUS, Starting [...] be used to maintain goal. Use 20mm [id number] adapter. Preparation Instructions: Attach medication vial to one 20mm [id number] adapter. Darvin fluid bag with adaptor, mix, and administer per order. 0013 (New Bag - Prov ider: Renetta De La Fuente RN)0033 (Rate/Dose Change - Provider: Renetta De La Fuente, RN)0045 (Rate/Dose Change - Provider: Renetta De La Fuente RN)0300 (Patient Transferred to Other Facility - Provider: Renetta De La Fuente RN) PRN Medication Order 01/17/2024 01/18/2024 01/19/2024 iopamidol (ISOVUE-370) 76 % injection 75 mL (COMPLETED) 75 mL, IntraVENous, IMG ONCE PRN, 1 dose, Starting on 01/18/24 at 2250, Until 01/18/24 at 2252, Other 2252 (Given - Provider: [...] Heydi Johnson RN)0434 (Stopped - Provider: Heydi Johnson RN)0435 (Stopped - Provider: Heydi Johnson, RN) carvedilol (COREG) tablet 12.5 mg 12.5 mg, Oral, 2 TIMES DAILY WITH MEALS, First dose (after last modification) on 01/21/24 at 1700, Until Discontinued, Administer with food to minimize the risk of orthostatic hypotension 1732 (Given - Provider: Sarthak Sepulveda RN) 0842 (Given - Provider: Hazel Bowen, KOURTNEY)1737 (Given - Provider: Hazel Bowen, KOURTNEY) carvedilol (COREG) tablet 6.25 mg (CANCELED) 6.25 mg, Oral, 2 TIMES DAILY WITH MEALS, First dose on Tue01/20/24 at 1700, Until Discontinued, Administer with food to minimize the risk of orthostatic hypotension 1725 (Given - Provider: Rashid Booth, KOURTNEY) 0815 (Given - Provider: Sarthak Sepulveda, KOURTNEY) cefTRIAXone (ROCEPHIN) 2000 mg in sterile water 20 mL IV syringe (CANCELED) 2,000 mg, IntraVENous, EVERY 24 HOURS, First dose (after last modification) on Tue01/20/24 at 1000, Until Discontinued, Antimicrobial Indications: Other, Other Abx Indication: concern for meningitis, Administer as slow IV Push over 5 mins 0939 (Given - Provider: Rashid Booth, RN) 1019 (Given - Provider: Sarthak Sepulveda, KOURTNEY) 1014 (Given - Provider: Hazel Bowen RN) chlorhexidine (PERIDEX) 0.12 % solution 15 mL 15 mL, Mouth/Throat, 2 TIMES DAILY, First dose on Tue01/19/24 at 1330, Until Discontinued, For mechanical ventilation [...] 0842 (Given - Provider: Hazel Bowen, KOURTNEY) folic acid 1 mg, thiamine (B-1) 100 mg in sodium chloride 0.9 % 50 mL IVPB (CANCELED) IntraVENous, at 100 mL/hr, Administer over 30 Minutes, DAILY, First dose on Tue01/19/24 at 1145 0833 (New Bag - Provider: Rashid Shatzer, RN)0903 (Stopped - Provider: Rashid Booth RN) 1214 (Not Given - Provider: Sarthak Sepulveda, KOURTNEY - Reason: Other - Comment: order changed to PO) heparin (porcine) injection 5,000 Units 5,000 Units, SubCUTAneous, EVERY 8 HOURS SCHEDULED (3 times per day), First dose on Roz 01/19/24 at 0600, Until Discontinued 0600 (Automatically Held - Provider: Xochitl Hampton MD)0734 (Unheld by provider - Provider: Rachael Burns DO)1404 (Given - Provider: Rashid Booth, KOURTNEY)2134 (Given - Provider: Heydi Johnson, RN) 0530 (Given - Provider: Heydi Johnson, RN)1522 (Given - Provider: Sarthak Sepulveda, KOURTNEY)2224 (Given - Provider: Jasmin Maldonado, KOURTNEY) 0619 (Given - Provider: Jasmin Maldonado, KOURTNEY)1339 (Not Given - Provider: Hazel Bowen RN - Reason: Patient/family refused)2200 (Due) insulin glargine (LANTUS) injection vial 15 Units (CANCELED) 15 Units, SubCUTAneous, NIGHTLY, First dose (after last modification) on 01/21/24 at 2100, Until Discontinued 2100 (Given - Provider: Anjana Donovan, KOURTNEY) insulin glargine (LANTUS) injection vial 20 Units 20 Units, SubCUTAneous, NIGHTLY, First dose (after last modification) on Tue01/22/24 at 2100, Until Discontinued 2100 (Due) insulin glargine (LANTUS) injection vial 5 Units (COMPLETED) 5 Units, SubCUTAneous, ONCE, 1 dose, On Tue01/20/24 at 1415, Bridge - prior to stopping gtt 1404 (Given - Provider: Rashid Booth, KOURTNEY) insulin glargine (LANTUS) injection vial 5 Units [...] notify physician 1731 (Given - Provider: Rashid Booth, RN) 0814 (Given - Provider: Sarthak Sepulveda, KOURTNEY)1218 (Given - Provider: Sarthak Sepulveda, RN)1634 (Given - Provider: Sarthak Sepulveda RN) 0804 (Not Given - Provider: Hazel Bowen [...] or break. 1616 (Given - Provider: Sarthak Sepulveda RN) 0842 [...] Booth RN) 0814 (Given - Provider: Sarthak Sepulveda RN) pantoprazole (PROTONIX) tablet 40 mg 40 mg, Oral, DAILY BEFORE BREAKFAST, First dose on 01/22/24 at 0700, Until Discontinued, Do not crush or break. 0619 (Given - Provider: Jasmin Maldonado RN) sodium chloride flush 0.9 % injection [...] mL/lumen 0837 (Given - Provider: Rashid Booth RN)195 (Given - Provider: Heydi Johnson RN) 0814 (Given - Provider: Sarthak Sepulveda, KOURTNEY)2022 (Given - Provider: Anjana Donovan, RN) 1014 (Given - Provider: Hazel Bowen, KOURTNEY)2100 (Due) thiamine tablet 100 mg 100 mg, Oral, DAILY, First dose on 01/21/24 at 1215, Until Discontinued 1218 (Given - Provider: Sarthak Sepulveda, KOURTNEY) 0842 (Given - Provider: Hazel Bowen, KOURTNEY) Continuous Medication Order 01/20/2024 01/21/2024 01/22/2024 0.45 % sodium chloride infusion (CANCELED) IntraVENous, at 100 mL/hr, CONTINUOUS, Starting on 01/20/24 at 1415 1622 (New Bag - Provider: Rashid Booth RN)1823 (Rate/Dose Verify - Provider: Rashid Booth RN)2113 (Rate/Dose Verify - Provider: Heydi Johnson RN)2311 (Rate/Dose Verify - Provider: Heydi Johnson RN) 0018 (Rate/Dose Verify - Provider: Heydi Johnson, RN)0053 (New Bag - Provider: Heydi Johnson RN)0320 (Rate/Dose Verify - Provider: Heydi Johnson RN)0424 (Rate/Dose Verify - Provider: Heydi Johnson RN)0609 (Rate/Dose Verify - Provider: Heydi Johnson RN)0647 (Rate/Dose Verify - Provider: Heydi Johnson RN)0905 (Rate/Dose Change - Provider: Sarthak Sepulveda RN)0905 (Rate/Dose Change - Provider: Sarthak Sepulveda, KOURTNEY)1019 (Rate/Dose Verify - Provider: Sarthak Sepulveda, KOURTNEY)1105 (Rate/Dose Change - Provider: Sarthak Sepulveda, RN)1106 [...] Booth RN)1124 (Rate/Dose Change - Provider: Rashid Booth RN)1233 (Rate/Dose Change - Provider: Rashid Booth RN)1459 (Rate/Dose Change - Provider: Rashid Booth, KOURTNEY)1606 (Stopped - Provider: Rashid Booth RN) insulin [...] Rashid Booth RN)1600 (Stopped - Provider: Rashid Booth RN) propofol infusion (CANCELED) 5-50 mcg/kg/min 88.5 [...] Provider: Heydi Johnson RN)0723 (Handoff - Provider: eHydi Johnson RN)0812 (Paused - Provider: Rashid Booth RN)1117 (Rate/Dose Change - Provider: Rashid Booth RN)1118 (New Bag - Provider: Rashid Booth, KOURTNEY)1244 (Rate/Dose Change - Provider: Rashid Booth, KOURTNEY)1247 (Rate/Dose Change - Provider: Rashid Booth, RN)1323 (Stopped - Provider: Rashid Booth, RN) PRN Medication Order 01/20/2024 01/21/2024 01/22/2024 [...] Johnson RN)0439 (Rate/Dose Verify - Provider: Heydi Gerten, RN)0608 (Rate/Dose Verify - Provider: Heydi Johnson [...] mg 1 mg, SubCUTAneous, PRN, Starting on Tue01/19/24 [...] for HR<60 2013 (Given - Provider: Heydi Johnson RN) 023 (Given - Provider: Heydi Johnson RN)1312 (Given - Provider: Lakeshia Brown RN - Comment: SBP 181)2013 (Given - Provider: Anjana Donovan, KOURTNEY) 06 (Given - Provider: Jasmin Maldonado, KOURTNEY) LORazepam (ATIVAN) injection 1 mg(Linked Group 4) 1 mg, IntraVENous, EVERY 1 HOUR PRN (WITHDRAWAL), Starting on Tue01/19/24 at 0716, Until Discontinued, Withdrawal, For alcohol withdrawal., For CIWA score 8 to 10. If both oral and intravenous CIWA medications ordered, use intravenous if unable to tolerate oral equivalent. Reassess CIWA one hour after each dose of medication and as needed. LORazepam (ATIVAN) injection 2 mg(Linked Group 4) 2 mg, IntraVENous, EVERY 1 HOUR PRN (WITHDRAWAL), Starting on Tue01/19/24 at 0716, Until Discontinued, Withdrawal, For alcohol [...] Booth RN)1050 (New Bag - Provider: Rashid Booth, KOURTNEY)1150 (Stopped - Provider: Rashid Booth, KOURTNEY) potassium chloride 20 mEq/50 mL IVPB (Central [...] 30mL/min 2022 (New Bag - Provider: Heydi Johnson RN)2112 (Rate/Dose Verify - Provider: Heydi Johnson, RN)2323 (Stopped - Provider: Heydi Johnson, RN)2327 (Stopped - Provider: Heydi Johnson RN) Linked [...] in Patients with CrCl less than 30mL/min
Scheduled Medication Order 09/26/2024 09/27/2024 09/28/2024 acetaminophen (TYLENOL) suppository 650 mg (COMPLETED) 650 mg, Rectal, ONCE, 1 dose, On Tue09/28/24 at 0945, Maximum dose of acetaminophen is 4000 mg from all sources in 24 hours. 0947 (Given - Provid er: Allison Marquez RN) ceFEPIme (MAXIPIME) 2,000 mg in sodium chloride 0.9 % 100 mL IVPB (mini-bag) (COMPLETED) 2,000 mg, IntraVENous, at 200 mL/hr, Administer over 30 Minutes, ONCE, On Tue09/28/24 at 1030, For 1 dose 1047 (New Bag - Prov ider: Allison Marquez RN)1117 (Stopped - Provider: Allison Marquez RN) etomidate (AMIDATE) injection 20 mg (COMPLETED) 20 mg, IntraVENous, ONCE, 1 dose, On Tue09/28/24 at 1030 1036 (Given - Provid er: Allison Marquez RN) labetalol (NORMODYNE;TRANDATE) injection 10 mg (COMPLETED) 10 mg, IntraVENous, ONCE, 1 dose, On Tue09/28/24 at 0945 0957 (Given - Provid er: Allison Marquez RN) LORazepam (ATIVAN) injection 2 mg (COMPLETED) 2 mg, IntraVENous, ONCE, 1 dose, On Tue09/28/24 at 1145, Immediately prior to intravenous use, lorazepam Injection must be diluted with at least an equal volume of compatible solution (NS or D5W). 1143 (Given - Provid er: Brittney Cortez RN) rocuronium (ZEMURON) injection 88 mg (COMPLETED) 88 mg (1 mg/kg 88 kg), IntraVENous, ONCE, 1 dose, On Tue09/28/24 at 1030 1038 (Given - Provid er: Allison Marquez RN) sodium chloride 0.9 % bolus 1,000 mL (COMPLETED) 1,000 mL, IntraVENous, at 2,000 mL/hr, Administer over 30 Minutes, ONCE, On Tue09/28/24 at 0845, For 1 dose 0923 (New Bag - Prov ider: Simona Kirk RN)1030 (Stopped - Provider: Allison Marquez RN) sodium chloride 0.9 % bolus 1,000 mL (COMPLETED) 1,000 mL, IntraVENous, at 2,000 mL/hr, Administer over 30 Minutes, ONCE, On Tue09/28/24 at 0945, For 1 dose 1016 (New Bag - Prov ider: Allison Marquez RN)1108 (Stopped - Provider: Allison Marquez RN) sodium chloride 0.9 % bolus 1,000 mL (COMPLETED) 1,000 mL (11.4 mL/kg), IntraVENous, at 2,000 mL/hr, Administer over 30 Minutes, ONCE, On Tue09/28/24 at 1100, For 1 dose 1107 (New Bag - Prov ider: Allison Marquez RN)1130 (Stopped - Provider: Allison Marquez RN) vancomycin (VANCOCIN) 2000 mg in 400 mL IVPB (COMPLETED) 2,000 mg (22.7 mg/kg), IntraVENous, at 200 mL/hr, Administer over 120 Minutes, ONCE, On Tue09/28/24 at 1030, For 1 dose 1217 (New Bag - Prov ider: Allison Marquez RN)1322 (Patient Transferred to Other Facility - Provider: Allison Marquez RN) Continuous Medication Order 09/26/2024 09/27/2024 09/28/2024 0.45 % sodium chloride infusion IntraVENous, at 250 mL/hr, CONTINUOUS, Starting on Tue09/28/24 at 0945, When blood glucose equals 250 mg/dL or below, DISCONTINUE saline IV fluid using Per Protocol order mode and start using the dextrose containing IV fluid order previously placed as CONTINUOUS PRN. DO NOT restart saline infusion if subsequent blood glucose returns above 250 mg/dL. 0945 (Due) fentaNYL (SUBLIMAZE) 1,000 mcg in sodium chloride 0.9% 100 mL infusion 25 mcg/hr (2.5 mL/hr), IntraVENous, CONTINUOUS, Starting on Tue09/28/24 at 1145, Until Discontinued, Titrate Infusion? Yes, Initial Infusion Dose: 50 mcg/hr, Goal of Therapy is: RASS of 0 to -1, Contact Provider if: Patient is receiving the maximum dose and is not achieving the goal of therapy, Titrate to RASS -1 to -2 Dose Range: 25 to 200 mcg/hr Max dose: 200 mcg/hr Contact physician if max dose does not achieve desired response If RASS greater than goal: increase fentanyl infusion by 25mcg/hr no faster than every hour If RASS at goal: continue same rate If RASS below goal: decrease fentanyl infusion by 25mcg/hr no faster than every hour If patient fails sedation interruption, resume fentanyl titration at previous rate 1149 (New Bag - Prov ider: Allison Marquez RN - Comment: Per verbal order from Dr Chavez)1319 (Stopped - Provider: Allison Marquez RN - Comment: Handoff to [facility]) insulin regular (HumuLIN R;NovoLIN R) 100 Units in sodium chloride 0.9 % 100 mL infusion 0.1-50 Units/hr (0.1-50 mL/hr), IntraVENous, CONTINUOUS, Starting on Tue09/28/24 at 0945, Until Discontinued, Goal Blood Glucose Range: DKA: 150-200, Calculate initial bolus with the embedded Insulin Calculator? No, If potassium LESS than 3.3, replace potassium per order prior to beginning insulin infusion Check blood glucose hourly while on infusion / protocol, unless otherwise specified by the calculator. Enter blood glucose value into eMAR calculator for rate guidance and other instruction. Reference: Refer to the Insulin Calculator Algorithm When BG < 250 mg/dL: - DISCONTINUE saline IV fluid using Per Protocol order mode and start using the dextrose containing IV fluid order previously placed as CONTINUOUS PRN. DO NOT restart saline infusion if subsequent BG returns above 250 mg/dL. Notify provider if: * BG is less than 70 mg/dL * If BG less than 200 mg/dL AND when both of the following criteria are met on two consecutive BMPs: Anion gap normalized (less than or equal to 12), serum bicarb (HCO3) greater than 15, call provider for conversion from insulin infusion to subcutaneous insulin and discontinue insulin infusion 2 hours after the first subcutaneous injection of insulin. 1004 (New Bag - Prov ider: Allison Marquez RN)1101 (New Bag - Provider: Allison Marquez RN)1159 (New Bag - Provider: Allison Marquez RN)1304 (New Bag - Provider: Allison Marquez RN)1320 (Patient Transferred to Other Facility - Provider: Allison Marquez RN - Comment: To [facility]) niCARdipine (CARDENE) 25 mg in sodium chloride 0.9 % 250 mL infusion ([id number]) 2.5-15 mg/hr (25-150 mL/hr), IntraVENous, CONTINUOUS, Starting on Tue09/28/24 at 1000, Until Discontinued, Titrate Infusion? Yes, Initial Infusion Rate: 5 mg/hr, Goal of Therapy is: Other, Other Goal: SBP less than 180 mmHg, Contact Provider if: Patient is receiving [...] be used to maintain goal. Use 20mm (Blue) Jedc7Nil Adapter Preparation instructions: Attach medication vial to one 20mm (Blue) [id number] adapter. Darvin fluid bag with adapter, mix, and administer per order. 1020 (New Bag - Prov ider: Allison Marquez RN)1103 (New Bag - Provider: Allison Marquez RN)1201 (Rate/Dose Change - Provider: Allison Marquez RN)1205 (Paused - Provider: Allison Marquez RN)1323 (Stopped - Provider: Allison Marquez RN) propofol infusion 5-50 mcg/kg/min 88 kg (2.64-26.4 mL/hr, rounded to 2.6-26.4 mL/hr), IntraVENous, CONTINUOUS, Starting on Tue09/28/24 at 1030, Until Discontinued, Titrate Infusion? Yes, Initial Infusion Dose: 20 mcg/kg/min, Goal of Therapy: RASS of 0 [...] vials should be discarded after 12 hours. 1039 (New Bag - Prov ider: Allison Marquez RN)1117 (New Bag - Provider: Allison Marquez RN)1151 (New Bag - Provider: Allison Marquez RN)1208 (Rate/Dose Change - Provider: Allison Marquez RN)1321 (Patient Transferred to Other Facility - Provider: Allison Marquez RN - Comment: Handoff Given to [facility]) PRN Medication Order 09/26/2024 09/27/2024 09/28/2024 dextrose 5 % and 0.45 % sodium chloride infusion IntraVENous, at 150 mL/hr, CONTINUOUS PRN, blood glucose less than 250 mg/dL, Starting on Tue09/28/24 at 0934, When blood glucose equals 250 mg/dL or below, DISCONTINUE saline IV Fluid using Per Protocol order mode and start using this dextrose containing IV fluid order. DO NOT restart saline infusion if subsequent blood glucose returns above 250 mg/dL. dextrose bolus 10% 125 mL(Linked Group 1) 125 mL, IntraVENous, at 937.5 mL/hr, Administer over 8 Minutes, PRN, Other, Hypoglycemia, Starting on Tue09/28/24 at 0928, If BG 40 - 69 mg/dL: Administer 125 mL (12.5 g) 10% dextrose IV over 8 minutes. Check blood glucose every 15 minutes and repeat above if blood glucose 40 - 69 mg/dL. May repeat x 2. dextrose bolus 10% 250 mL(Linked Group 1) 250 mL, IntraVENous, at 937.5 mL/hr, Administer over 16 Minutes, PRN, Other, Hypoglycemia, Starting on Tue09/28/24 at 0928, If BG LESS than 40 mg/dL: Administer 250 mL (25 g) 10% dextrose IV over 16 minutes. Check blood glucose every 15 minutes and repeat above if blood glucose LESS than 40 mg/dL. May repeat x 2. iopamidol (ISOVUE-370) 76 % injection 150 mL (COMPLETED) 150 mL, IntraVENous, IMG ONCE PRN, 1 dose, Starting on Tue09/28/24 at 0909, Until Tue09/28/24 at 0912, Other 0912 (Given - Provid er: Columba Chen) magnesium sulfate 2000 mg in 50 mL IVPB premix 2,000 mg, IntraVENous, at 25 mL/hr, Administer over 2 Hours, PRN, Other, Per IV Magnesium Replacement Protocol, Starting on Tue09/28/24 at 0928, Mg Lab Replacement Action 1.4-1.6 2 gram IVPB x 1 doses (2 gram Total) 1.0-1.3 2 gram IVPB x 2 doses (4 gram Total) less than 1.0 CALL PHYSICIAN and 2 gram IVPB x 2 doses (4 gram Total) Infuse at 1 gram/hr Repeat Mag level 1 hour after final administration. Protocol not for use in Patients with CrCl less than 30mL/min potassium chloride 10 mEq/100 mL IVPB (Peripheral Line) 10 mEq, IntraVENous, PRN, Starting on Tue09/28/24 at 0928, Until Discontinued, at 100 mL/hr, Potassium IV [...] either through peripheral IV or central IV. sodium phosphate 15 mmol in sodium chloride 0.9 % 250 mL IVPB 15 mmol, IntraVENous, at 83.3 mL/hr, Administer over 180 Minutes, PRN, Phosphate IV Replacement, Starting on Tue09/28/24 at 0928, Phos level Replacement Action 1.5 to 2.7 mg/dL 15 mmol IVPB over 3 hours LESS than 1.5 mg/dL CALL PHYSICIAN and 15 mmol IVPB over 3 hours Repeat Phos level 1 hour after administration. Protocol not for use in Patients with CrCl less than 30mL/min Linked Groups Order Group 1: dextrose bolus 10% 125 mLJump to med 125 mL, IntraVENous, at 937.5 mL/hr, Administer over 8 Minutes, PRN, Other, Hypoglycemia, Starting on Tue09/28/24 at 0928, If BG 40 - 69 mg/dL: Administer 125 mL (12.5 g) 10% dextrose IV over 8 minutes. Check blood glucose every 15 minutes and repeat above if blood glucose 40 - 69 mg/dL. May repeat x 2. Or dextrose bolus 10% 250 mLJump to med 250 mL, IntraVENous, at 937.5 mL/hr, Administer over 16 Minutes, PRN, Other, Hypoglycemia, Starting on Tue09/28/24 at 0928, If BG LESS than 40 mg/dL: Administer 250 mL (25 g) 10% dextrose IV over 16 minutes. Check blood glucose every 15 minutes and repeat above if blood glucose LESS than 40 mg/dL. May repeat x 2. Scheduled Medication Order 10/04/2024 10/05/2024 10/06/2024 amLODIPine (NORVASC) tablet 10 mg 10 mg, Oral, DAILY, First dose (after last modification) on 10/06/24 at 0900, Until Discontinued 0817 (Given - Provider: Gabriela Rivas RN) amLODIPine (NORVASC) tablet 5 mg (CANCELED) 5 mg, Oral, DAILY, First dose on Tue09/30/24 at 1515, Until Discontinued 0845 (Given - Provider: Archana Kenyon RN) 0910 (Given - Provider: Gabriela Rivas RN) amLODIPine (NORVASC) tablet 5 mg (COMPLETED) 5 mg, Oral, ONCE, 1 dose, On Tue10/05/24 at 1115 1126 (Given - Provider: Gabriela Rivas RN) aspirin chewable tablet 81 mg 81 mg, Oral, DAILY, First dose on Tue09/28/24 at 1530, Until Discontinued 0845 (Given - Provider: Archana Kenyon RN) 1138 (Given - Provider: Gabriela Rivas RN) 0817 (Given - Provider: Gabriela Rivas RN) atorvastatin (LIPITOR) tablet 40 mg 40 mg, Oral, NIGHTLY, First dose on Tue09/28/24 at 2100, Until Discontinued 2131 (Given - Provider: Coretta Mitchell, KOURTNEY) 2152 (Given - Provider: Coretta Mitchell RN) 2009 (Given - Provider: Delmy Anderson RN) carvedilol (COREG) tablet 25 mg 25 mg, Oral, 2 TIMES DAILY WITH MEALS, First dose (after last modification) on 09/29/24 at 1700, Until Discontinued, Administer with food to minimize the risk of orthostatic hypotension 0845 (Given - Provider: Archana Kenyon RN)1626 (Given - Provider: Archana Kenyon RN) 0910 (Given - Provider: Gabriela Rivas RN)1711 (Given - Provider: Gabriela Rivas RN) 0817 (Given - Provider: Gabriela Rivas RN)1628 (Given - Provider: Gabriela Rivas RN) heparin (porcine) injection 5,000 Units 5,000 Units, SubCUTAneous, EVERY 8 HOURS SCHEDULED (3 times per day), First dose on Tue09/30/24 at 0600, Until Discontinued 0650 (Given - Provider: Delmy Anderson RN)0842 (Held by provider - Provider: Mary Lou Tom DO - Reason: Other)1400 (Automatically Held - Provider: Mary Lou Tom DO)1415 (Unheld by provider - Provider: Mary Lou Tom DO)2147 (Given - Provider: Coretta Mitchell RN) 0630 (Not Given - Provider: Coretta Mitchell RN - Reason: Other - Comment: Plan for Loop recorder implantation. LINE MANAGER aware & ok to hold)1400 (Given - Provider: Gabriela Rivas RN)2154 (Given - Provider: Coretta Mitchell RN) 0625 (Given - Provider: Coretta Mitchell RN)1357 (Not Given - Provider: Gabriela Rivas RN - Reason: Patient/family refused)2200 (Due) insulin glargine (LANTUS) injection vial 25 Units 25 Units, SubCUTAneous, EVERY MORNING, First dose (after last modification) on Tue09/30/24 at 0900, Until Discontinued 0845 (Given - Provider: Archana Kenyon RN) 1129 (Given - Provider: Gabriela Rivas RN) 0817 (Given - Provider: Gabriela Rivas RN) insulin lispro (HUMALOG,ADMELOG) injection vial 0-8 Units 0-8 Units, SubCUTAneous, 4 TIMES DAILY BEFORE MEALS & NIGHTLY, First dose on Tue10/02/24 at 1100, Until Discontinued, Medium Dose Corrective Algorithm Glucose: Dose: 70-179 No Insulin 180-249 2 Units 250-299 4 Units 300-349 6 Units Over 349 8 Units and notify physician Administer as soon as possible within 60 minutes of last blood glucose check 0759 (Not Given - Provider: Archana Kenyon RN - Reason: Order parameters not met)1218 (Not Given - Provider: Archana Kenyon RN - Reason: Order parameters not met)1740 (Given - Provider: Archana Kenyon RN)2132 (Given - Provider: Coretta Mitchell RN) 0639 (Not Given - Provider: Coretta Mitchell RN - Reason: Order parameters not met - Comment: [id number] (Not Given - Provider: Gabriela Rivas RN - Reason: Order parameters not met)1711 (Given - Provider: Gabriela Rivas RN)2128 (Not Given - Provider: Coretta Mitchell RN - Reason: Order parameters not met) 0625 (Given - Provider: Coretta Mitchell RN - Comment: [id number] (Given - Provider: Gabriela Rivas RN)162 (Given - Provider: Gabriela Rivas RN)2014 (Given - Provider: Delmy Anderson RN) levETIRAcetam (KEPPRA) injection 1,000 mg (CANCELED) 1,000 mg, IntraVENous, 2 TIMES DAILY, First dose on Tue10/04/24 at 0900, Until Discontinued, Administer IVP over 2-5 minutes. 0853 (Given - Provider: Archana Kenyon RN)2129 (Given - Provider: Coretta Mitchell RN) 0910 (Given - Provider: Gabriela Rivas RN)2154 (Given - Provider: Coretta Mitchell RN) 0817 (Not Given - Provider: Gabriela Rivas RN - Reason: Loss of IV access)0838 (Not Given - Provider: Gabriela Rivas RN - Reason: Loss of IV access) levETIRAcetam (KEPPRA) tablet 1,000 mg 1,000 mg, Oral, 2 TIMES DAILY, First dose on Tue10/06/24 at 0915, Until Discontinued, Do not crush or chew. 0938 (Given - Provider: Gabriela Rivas RN)2009 (Given - Provider: Delmy Anderson, KOURTNEY) levoFLOXacin (LEVAQUIN) tablet 250 mg (COMPLETED) 250 mg, Oral, DAILY, 2 doses, First dose (after last modification) on Tue10/03/24 at 1100, Last dose on Tue10/04/24 at 0900, Antimicrobial Indications: Pneumonia (CAP), CAP duration of therapy: 3 days, Do not take with dairy products or calcium-fortified juices. Tube feeding (TF) interaction, obtain physician order to manage. Recommend holding TF for 2 hrs before and 2 hrs after dose. Due to decreased absorption do not give by J tube. 0853 (Given - Provider: Archana Kenyon RN) losartan (COZAAR) tablet 25 mg (CANCELED) 25 mg, Oral, DAILY, First dose on Tue10/02/24 at 0930, Until Discontinued 0845 (Given - Provider: Archana Kenyon, KOURTNEY) losartan (COZAAR) tablet 25 mg (COMPLETED) 25 mg, Oral, ONCE, 1 dose, On Tue10/04/24 at 0945 0936 (Given - Provider: Archana Kenyon RN) losartan (COZAAR) tablet 50 mg 50 mg, Oral, DAILY, First dose (after last modification) on Tue10/05/24 at 0900, Until Discontinued 0910 (Given - Provider: Gabriela Rivas RN) 0817 (Given - Provider: Gabriela Rivas RN) miconazole (MICOTIN) 2 % powder Topical, 2 TIMES DAILY, First dose on Tue10/02/24 at 1330, Apply to affected areas. Substituted for Nystatin (NYSTOP) powder. 0849 (Given - Provider: Archana Kenyon RN)2133 (Given - Provider: Coretta Mitchell RN) 0910 (Given - Provider: Gabriela Rivas RN)2153 (Given - Provider: Coretta Mitchell RN) 0816 (Given - Provider: Gabriela Rivas RN)1946 (Not Given - Provider: Delmy Anderson RN - Reason: Patient/family refused) sodium chloride flush 0.9 % injection 5-40 mL 5-40 mL, IntraVENous, EVERY 12 HOURS SCHEDULED (2 times per day), First dose on Tue09/28/24 at 2100, Until Discontinued, For Line Patency: Peripheral IV [...] Midline or Central Line = 20 mL/lumen 0849 (Given - Provider: Archana Kenyon RN)213 (Given - Provider: Coretta Mitchell, KOURTNEY) 1130 (Given - Provider: Gabriela Rivas, RN)2153 (Given - Provider: Coretta Mitchell RN) 0818 (Given - Provider: Gabriela Rivas RN)194 (Not Given - Provider: Delmy Anderson RN - Reason: Other - Comment: no iv access) PRN Medication Order 10/04/2024 10/05/2024 10/06/2024 0.9 % sodium chloride infusion IntraVENous, at 5-250 mL/hr, PRN, if patient receiving piggyback infusions and maintenance fluids are not ordered, Starting on Tue09/28/24 at 1443, For piggyback infusion, administer at same rate as piggyback for a total of 25 mL. Enter 25 mL into dose field and piggyback rate into rate field of order. If piggyback is infusing at a rate less than 100 mL/hr, enter 25 mL into dose field and 100 mL/hr into rate field of order. acetaminophen (TYLENOL) suppository 650 mg(Linked Group 1) 650 mg, Rectal, EVERY 6 HOURS PRN, Starting on Tue09/28/24 at 1443, Until Discontinued, Pain Mild (1-3), Fever, For temp greater than 100.4 F (38 C), Administer if oral route cannot be used. acetaminophen (TYLENOL) tablet 650 mg(Linked Group 1) 650 mg, Oral, EVERY 6 HOURS PRN, Starting on Tue09/28/24 at 1443, Until Discontinued, Pain Mild (1-3), Fever, For temp greater than 100.4 F (38 C), Maximum dose of acetaminophen is 4000 mg from all sources in 24 hours. groglvqo-vvvihyhycu-ytckcxvx ne (CETACAINE) spray (CANCELED) PRN, Starting on Tue10/05/24 at 1028, Until Tue10/05/24 at 1047, Intra-procedure(Cath) 1028 (Given - Provider: Freddy Cabrera MD - Comment: THROAT) dextrose 10 % infusion IntraVENous, at 100 mL/hr, CONTINUOUS PRN, if blood glucose remains LESS THAN 70 mg/dL after 2 dextrose 10% intravenous boluses or administration of glucagon, Starting on 09/29/24 at 0739, If blood glucose fails to stabilize after 2 dextrose 10% intravenous boluses or glucagon administration, start dextrose 10% infusion at 100 mL/hour and repeat blood glucose at 30 and 60 minutes. If blood glucose is GREATER THAN 70 mg/dL after 60 minutes, discontinue dextrose 10% infusion. dextrose bolus 10% 125 mL(Linked Group 2) 125 mL, IntraVENous, at 937.5 mL/hr, Administer over 8 Minutes, PRN, Other, Blood glucose 40 - 69 mg/dL and patient NOT ALERT or NPO, Starting on 09/29/24 at 0739, Repeat blood glucose in 15 minutes. If blood glucose remains LESS THAN 70 mg/dL, repeat treatment and recheck blood glucose in 15 minutes x 2. If using glycemic management system, dose as instructed per system. If blood glucose remains LESS THAN 70 mg/dL after 2 intravenous boluses start dextrose 10% at 100 mL/hour and notify provider. dextrose bolus 10% 250 mL(Linked Group 2) 250 mL, IntraVENous, at 937.5 mL/hr, Administer over 16 Minutes, PRN, Other, Blood glucose LESS THAN 40 mg/dL and patient NOT ALERT or NPO, Starting on 09/29/24 at 0739, Repeat blood glucose in 15 minutes. If blood glucose remains LESS THAN 70 mg/dL, repeat treatment and recheck blood glucose in 15 minutes x 2. If using glycemic management system, dose as instructed per system. If blood glucose remains LESS THAN 70 mg/dL after 2 intravenous boluses start dextrose 10% at 100 mL/hour and notify provider. fentaNYL (SUBLIMAZE) injection (CANCELED) PRN, Starting on Tue10/05/24 at 1029, Until Tue10/05/24 at 1047, Intra-procedure(Cath) 1029 (Given - Provider: Geoffrey Hughes RN) glucagon injection 1 mg 1 mg, SubCUTAneous, PRN, Starting on 09/29/24 at 0739, Until Discontinued, Low blood sugar, Blood glucose LESS THAN 70 mg/dL and patient NOT ALERT or NPO and does not have IV access., After administration, attempt intravenous access and start dextrose 10% at 100 mL/hr. Repeat blood glucose in 15 minutes x 2 and notify provider. Reconstitute powder for injection by adding 1 mL of plaster foreman-supplied sterile diluent or sterile water for injection to a vial containing 1 mg of the drug, to provide solutions containing 1 mg/mL. Shake vial gently to dissolve. glucose chewable tablet 16 g 16 g (4 tablet), Oral, PRN, Starting on Tue09/29/24 at 0739, Until Discontinued, Low blood sugar, If blood glucose is LESS THAN 70 mg/dL and patient is alert and tolerating oral. Give 4 tablets (16g) Repeat blood glucose in 15 minutes. If blood glucose is LESS THAN 70 mg/dL, repeat treatment and recheck blood glucose in 15 minutes x 2. If blood glucose remains LESS THAN 70 mg/dL, notify provider. hydrALAZINE (APRESOLINE) injection 10 mg 10 mg, IntraVENous, EVERY 6 HOURS PRN, Starting on Tue09/29/24 at 0830, Until Discontinued, High Blood Pressure (specify parameters), Give if SBP > 180 and hold if HR > 100 labetalol (NORMODYNE;TRANDATE) injection 5 mg 5 mg, IntraVENous, EVERY 6 HOURS PRN, Starting on Tue09/28/24 at 1628, Until Discontinued, High Blood Pressure, Give if SBP > 180 and hold if HR < 60 1008 (Given - Provider: Archana Kenyon RN) lidocaine 1 % injection (CANCELED) IntraDERmal, PRN, Starting on Tue10/05/24 at 0949, Until Tue10/05/24 at 1047, Intra-procedure(Cath) 0949 (Given - Provider: Freddy Cabrera MD) lidocaine viscous hcl (XYLOCAINE) 2 % solution (CANCELED) PRN, Starting on Tue10/05/24 at 1028, Until Tue10/05/24 at 1047, Intra-procedure(Cath) 1028 (Given - Provider: Freddy Cabrera MD) magnesium sulfate 2000 mg in 50 mL IVPB premix 2,000 mg, IntraVENous, at 25 mL/hr, Administer over 2 Hours, PRN, Other, Per IV Magnesium Replacement Protocol, Starting on Tue09/28/24 at 1443, Mg Lab Replacement Action 1.4-1.6 2 gram IVPB x 1 doses (2 gram Total) 1.0-1.3 2 gram IVPB x 2 doses (4 gram Total) less than 1.0 CALL PHYSICIAN and 2 gram IVPB x 2 doses (4 gram Total) Infuse at 1 gram/hr Repeat Mag level 1 hour after final administration Protocol not for use in Patients with CrCl less than 30mL/min magnesium sulfate 2000 mg in 50 mL IVPB premix 2,000 mg, IntraVENous, at 25 mL/hr, Administer over 2 Hours, PRN, Other, Per IV Magnesium Replacement Protocol, Starting on Tue09/28/24 at 1445, Mg Lab Replacement Action 1.4-1.6 2 gram IVPB x 1 doses (2 gram Total) 1.0-1.3 2 gram IVPB x 2 doses (4 gram Total) less than 1.0 CALL PHYSICIAN and 2 gram IVPB x 2 doses (4 gram Total) Infuse at 1 gram/hr Repeat Mag level 1 hour after final administration. Protocol not for use in Patients with CrCl less than 30mL/min midazolam (VERSED) injection (CANCELED) PRN, Starting on Tue10/05/24 at 1028, Until Tue10/05/24 at 1047, Intra-procedure(Cath) 1028 (Given - Provider: Geoffrey Hughes RN) ondansetron (ZOFRAN) injection 4 mg(Linked Group 3) 4 mg, IntraVENous, EVERY 6 HOURS PRN, Starting on Tue09/28/24 at 1443, Until Discontinued, Nausea, Vomiting, Administer if oral route cannot be used. ondansetron (ZOFRAN-ODT) disintegrating tablet 4 mg(Linked Group 3) 4 mg, Oral, EVERY 8 HOURS PRN, Starting on Tue09/28/24 at 1443, Until Discontinued, Nausea, Vomiting polyethylene glycol (GLYCOLAX) packet 17 g 17 g, Oral, DAILY PRN, Starting on Tue09/28/24 at 1443, Until Discontinued, Constipation, First line therapy for constipation potassium chloride 10 mEq/100 mL IVPB (Peripheral Line)(Linked Group 4) 10 mEq, IntraVENous, PRN, Starting on Tue09/28/24 at 1443, Until Discontinued, at 100 mL/hr, Per IV [...] with CrCl less than 30mL/min potassium chloride 20 mEq/50 mL IVPB (Central Line)(Linked Group 4) 20 mEq, IntraVENous, PRN, Starting on Tue09/28/24 at 1443, Until Discontinued, at 50 mL/hr, Per IV [...] in Patients with CrCl less than 30mL/min sodium chloride flush 0.9 % injection 10 mL 10 mL, IntraVENous, PRN, Starting on Tue10/03/24 at 1122, Until Discontinued, Line Care, Nuclear Medicine sodium chloride flush 0.9 % injection 5-40 mL 5-40 mL, IntraVENous, PRN, Starting on Tue09/28/24 at 1443, Until Discontinued, Line Care, After every IV [...] Minutes, PRN, Phosphate IV Replacement, Starting on Tue09/28/24 at 1445, Phos level Replacement Action 1.5 to 2.7 mg/dL 15 mmol IVPB over 3 hours LESS than 1.5 mg/dL CALL PHYSICIAN and 15 mmol IVPB over 3 hours Repeat Phos level 1 hour after administration. Protocol not for use in Patients with CrCl less than 30mL/min Linked Groups Order Group 1: acetaminophen (TYLENOL) tablet 650 mgJump to med 650 mg, Oral, EVERY 6 HOURS PRN, Starting on Tue09/28/24 at 1443, Until Discontinued, Pain Mild (1-3), Fever, For temp greater than 100.4 F (38 C), Maximum dose of acetaminophen is 4000 mg from all sources in 24 hours. Or acetaminophen (TYLENOL) suppository 650 mgJump to med 650 mg, Rectal, EVERY 6 HOURS PRN, Starting on Tue09/28/24 at 1443, Until Discontinued, Pain Mild (1-3), Fever, For temp greater than 100.4 F (38 C), Administer if oral route cannot be used. Group 2: dextrose bolus 10% 125 mLJump to med 125 mL, IntraVENous, at 937.5 mL/hr, Administer over 8 Minutes, PRN, Other, Blood glucose 40 - 69 mg/dL and patient NOT ALERT or NPO, Starting on 09/29/24 at 0739, Repeat blood glucose in 15 minutes. If [...] patient NOT ALERT or NPO, Starting on 09/29/24 at 0739, Repeat blood glucose in 15 minutes. If blood glucose remains LESS THAN 70 mg/dL, repeat treatment and recheck blood glucose in 15 minutes x 2. If using glycemic management system, dose as instructed per system. If blood glucose remains LESS THAN 70 mg/dL after 2 intravenous boluses start dextrose 10% at 100 mL/hour and notify provider. Group 3: ondansetron (ZOFRAN-ODT) disintegrating tablet 4 mgJump to med 4 mg, Oral, EVERY 8 HOURS PRN, Starting on Tue09/28/24 at 1443, Until Discontinued, Nausea, Vomiting Or ondansetron (ZOFRAN) injection 4 mgJump to med 4 mg, IntraVENous, EVERY 6 HOURS PRN, Starting on Tue09/28/24 at 1443, Until Discontinued, Nausea, Vomiting, Administer if oral route cannot be used. Group 4: potassium chloride 20 mEq/50 mL IVPB (Central Line)Jump to med 20 mEq, IntraVENous, PRN, Starting on Tue09/28/24 at 1443, Until Discontinued, at 50 mL/hr, Per IV [...] med 10 mEq, IntraVENous, PRN, Starting on Tue09/28/24 at 1443, Until Discontinued, at 100 mL/hr, Per IV [...] Care Teams (unrecognized sec tion and content) Rod Piler Relationship Specialty Start Date End Date Vincent Winters MD [address] [place] [address] PCP - General Family Medicine 10/27/21 Rod Piler Relationship Specialty Start Date End Date Vincent Winters MD [address] [facility] [place] [address] PCP - General Family Medicine 10/27/21 Rod Piler Relationship Specialty Start Date End Date Vincent Winters MD [address] [place] [address] PCP - General Family Medicine 09/21/23 Rod Piler Relationship Specialty Start Date End Date Vincent Winters MD [address] [place] [address] PCP - General Family Medicine 10/27/21 Rod Piler Relationship Specialty Start Date End Date Vincent Winters MD [address] [place] [address] PCP - General Family Medicine 10/27/21 Rod Piler Relationship Specialty Start Date End Date Vincent Winters MD [address] [place] [address] PCP - General Family Medicine 10/27/21 Rod Piler Relationship Specialty Start Date End Date Vincent Winters MD [address] [place] [address] PCP - General Family Medicine 10/27/21 Rod Piler Relationship Specialty Start Date End Date Vincent Winters MD [address] [facility] [place] [address] PCP - General Family Medicine 10/27/21 Rod Piler Relationship Specialty Start Date End Date Vincent Winters MD [address] [place] [address] PCP - General Family Medicine 10/27/21 Ordered [...] daily (with meals) 30 mL 1 01/22/2024 Prescription Sig Dispensed Refills Start Date End Da te insulin lispro (HUMALOG,ADMELOG) 100 UNIT/ML SOLN injection vial Inject 0-16 Units into the skin 3 times daily (with meals) 120-150 3 units. 151-200 6 units. 201-250 9 units. 251-300 12 units. 301-350 15 units. Greater than 351 20 units 30 mL 1 10/06/2024 levETIRAcetam (KEPPRA) 500 MG tablet Take 2 tablets by mouth 2 times daily 120 tablet 11 10/06/2024 10/01/2025 Insulin Syringe-Needle U-100 30G X 5/16 0.5 ML MISC 1 each by Does not apply route daily 100 each 3 10/06/2024 Insulin Pen Needle 32G X 6 MM MISC Use it once daily 90 each 1 10/06/2024 insulin glargine (LANTUS SOLOSTAR) 100 UNIT/ML injection pen Inject 25 Units into the skin nightly 5 Adjustable Dose Pre-filled Pen Syringe 3 10/06/2024 losartan (COZAAR) 50 MG tablet Take 1 tablet by mouth daily 30 tablet 3 10/07/2024 atorvastatin (LIPITOR) 40 MG tablet Take 1 tablet by mouth nightly 30 tablet 3 10/06/2024 aspirin 81 MG chewable tablet Take 1 tablet by mouth daily 30 tablet 3 10/07/2024 amLODIPine (NORVASC) 10 MG tablet Take 1 tablet by mouth daily 30 tablet 3 10/07/2024 carvedilol (COREG) 25 MG tablet Take 1 tablet by mouth 2 times daily (with meals) 60 tablet 3 10/06/2024 Blood Pressure KIT Check your BP at least twice a day & record in a log to discuss with your PCP 1 kit 1 10/05/2024 insulin lispro (HUMALOG,ADMELOG) 100 UNIT/ML SOLN injection vial Inject 0-16 Units into the skin 3 times daily (with meals) 30 mL 1 10/06/2024 10/06/2024 insulin glargine (LANTUS SOLOSTAR) 100 UNIT/ML injection pen Inject 25 Units into the skin nightly 5 Adjustable Dose Pre-filled Pen Syringe 3 10/06/2024 10/06/2024 (unrecognized sect ion and content) No Status Records FoundNo Status Records FoundNo Status Records FoundNo Status Records FoundNo Status Records FoundNo Status Records FoundNo Status Records Found INFORMATION SOURCE (unrecogn ized section and content) DATE CREATED AUTHOR 01/27/2023 [facility] DATE CREATED AUTHOR AUTHOR'S ORGANIZ ATION 08/14/2023 [facility] DATE CREATED AUTHOR AUTHOR'S ORGANIZ ATION 10/23/2023 [facility] DATE CREATED AUTHOR AUTHOR'S ORGANIZ ATION 03/01/2024 [facility] DATE CREATED AUTHOR AUTHOR'S ORGANIZ ATION 03/02/2024 [facility] DATE CREATED AUTHOR AUTHOR'S ORGANIZ ATION 10/25/2024 [facility] DATE CREATED AUTHOR AUTHOR'S ORGANIZ ATION 10/27/2024 [facility] FOR RECORDS PERTAINING TO PATIENTS WHO ARE [...] BE BASED ON THE PRIMARY CLINICAL RECORDS. [facility] [employer] [facility]. provides no warranty or guarantee of the accuracy or completeness of information in this document.
--- NOTE | 2024-11-04 18:37 | ED.GENADUL1 ---
HPI HPI - General Adult General Chief complaint: Extremity Problem, Nontraumatic Stated complaint: BILATERAL LEG SWELLING Time Seen by Provider: 11/04/24 18:28 Source: patient Mode of arrival: walk-in History of Present Illness HPI narrative: Patient is a 48-year-old male presents to the ER for evaluation of leg edema and scrotal edema. He denies any significant pain or discomfort. States about 2 weeks ago he was admitted to [facility] of not taking his diabetic and antihypertensive medications. Patient is a poor historian but says he was there for several days and at one point was intubated. Patient states he has had outpatient follow-ups with his family doctor and has had multiple different water pills without relief of lower leg edema. Patient states he has had this before she denies any chest pain or shortness of breath he admits to using chewing tobacco but denies alcohol abuse. Patient denies any testicle pain just discomfort from being swollen. Patient appears nontoxic and in no acute distress. States he has a outpatient ultrasound scheduled for tomorrow of his lower legs. Reviewing the available prescription pharmacy record the patient was on Lasix 40 mg once daily for 4 days prescribed on 10/15, per lactone 50 mg once a day for 4 days on 10/30/24. Location: Reports lower extremity; Denies head Radiation: Reports non-radiation Severity: mild Quality: Reports constant (achy); Denies burning or stabbing Pain Consistency: Reports constant Associated symptoms: Reports denies other symptoms Treatments prior to arrival: Reports none Related Data Home Medications ?Medication ?Instructions ?Recorded ?Confirmed blood-glucose meter,continuous 10/15/23 10/16/23 (Dexcom G6 Engagement Liaison) blood-glucose sensor (Dexcom G6 10/15/23 10/15/23 Sensor device) blood-glucose transmitter (Dexcom 10/15/23 10/15/23 G6 Transmitter device) lisinopril 20 mg tablet 20 mg PO DAILY 10/15/23 11/04/24 metoprolol tartrate 50 mg tablet 50 mg PO Q12H 10/15/23 11/04/24 pen needle, diabetic 31 gauge x 10/15/23 10/15/23 5/16 (Easy Comfort Pen [place]) amlodipine 10 mg tablet 10 mg PO DAILY 11/04/24 11/04/24 aspirin 81 mg chewable tablet 1 tab PO DAILY 11/04/24 11/04/24 atorvastatin 40 mg tablet 40 mg PO DAILY 11/04/24 11/04/24 carvedilol 25 mg tablet 25 mg PO BID 11/04/24 11/04/24 hydralazine 50 mg tablet 50 mg PO BID 11/04/24 11/04/24 insulin glargine 100 unit/mL (3 24 unit subcut QPM 11/04/24 11/04/24 mL) subcutaneous pen (Lantus Solostar U-100 Insulin) insulin lispro 100 unit/mL 1 sliding scale dose subcut TID 11/04/24 11/04/24 subcutaneous pen (Humalog KwikPen (U-100) Insulin) levetiracetam 500 mg tablet 1,000 mg PO BID 11/04/24 11/04/24 losartan 50 mg tablet 50 mg PO DAILY 11/04/24 11/04/24 Allergies Allergy/AdvReac Type Severity Reaction Status Date / Time No Known Drug Allergies Allergy Verified 10/15/23 23:39 Opioid HPI Opioid Management Most Recent Opioid Data: No Data to Display Review of Systems ROS Constitutional Denies: fever or chills Eyes Denies: change in vision Ears, nose, mouth, and throat Denies: throat pain or neck pain Cardiovascular Reports: edema and swelling of feet/ankles; Denies: chest pain, palpitations, lightheadedness, shortness of breath with exertion or shortness of breath when lying down Respiratory Denies: shortness of breath, cough or wheezing Gastrointestinal Reports: change in stool character (occasionally loose and dark in color. black ); Denies: abdominal pain, nausea or vomiting Genitourinary Denies: painful urination Musculoskeletal Reports: extremity swelling; Denies: back pain or neck pain Integumentary/Breast Denies: rash or itching Neurological Denies: headache or numbness in extremities Psychiatric Denies: anxiety or mood swings Hematologic/Lymphatic Denies: easy bruising [facility] Medical History (Updated 11/04/24 @ 19:38 by DOMENICA Maravilla) Dyslipidemia ?E78.5 - Hyperlipidemia, unspecified (ICD-10) Benign essential hypertension ?I10 - Essential (primary) hypertension (ICD-10) Uncontrolled hypertension ?I10 - Essential (primary) hypertension (ICD-10) Infection of muscle of back ?M60.08 - Infective myositis, other site (ICD-10) Diabetes ?E11.9 - Type 2 diabetes mellitus without complications (ICD-10) Social History (Updated 10/16/23 @ 04:17 by Karen Zaldivar) Within the past year, how often did you have a drink containing alcohol: monthly or less Within the past year, how many standard drinks containing alcohol did you have on a typical day: 1 or 2 Within the past year, how often did you have six or more drinks on one occasion: never Total score: 0 Score interpretation: A score less than 4 is consistent with normal alcohol consumption. Smoking status: Never smoker Do you use any of these nicotine containing products: smokeless tobacco Non-prescribed substance use: denies use Previous occupational history: [employer] Highest level of school completed/degree received: high school graduate Little interest or pleasure in doing things: not at all Feeling down, depressed, or hopeless: not at all Feel stressed/tense/nervous/anxious/difficulty sleeping: only a little Due to disability, difficulty making decisions: No Exam Narrative Exam Narrative: Nurses notes and vital signs reviewed and patient is not hypoxic. General: The patient appears well and in no apparent distress. Patient is resting comfortably on cart, walks slowly with leg and scrotal edema Skin: Warm, dry, no pallor noted. No evidence of skin breakdown or ulceration Head: Normocephalic, atraumatic Neck: Supple, trachea mid-line, no tenderness, no lymphadenopathy Eye: Pupils are equal, round and reactive to light, EOMI Ears, Nose, Mouth, and Throat: TM are clear, normal light reflex, oral mucosa is moist, no posterior oropharynx erythema or hypertrophy, uvula is mid-line Cardiovascular: Regular Rate and Rhythm Respiratory: Patient is in no distress, no accessory muscle use, lungs are clear to auscultation, no wheezing, rales or rhonchi. Chest Wall: no tenderness Back: non-tender, no CVA tenderness, pitting sacral edema present Musculoskeletal: normal ROM, no joint pain or tenderness., notable pitting edema bilateral lower legs and edema noted to the MCP joint and digits of bilateral upper extremities. Concerning for anasarca : Circumcised male significant edema and notable edema to the scrotum nontender. no erythema. verbal consent for rectal exam. RN at bedside. good rectal tone, no gross blood, prostate without tenderness or swelling. brown soft stool noted. no rectal tenderness. GI: Normal bowel sounds, no tenderness to palpation, no masses appreciated. No rebound, guarding, or rigidity noted. no appreciable ascities but skin appears tense for early abdominal ascities, no s/s of infection or fluid wave. Neurological: A&O x4 Psychiatric: Cooperative Constitutional Vital Signs, click to edit/add: Last Vital Signs Temp 98.1 F 11/04/24 19:18 Pulse 74 11/04/24 19:18 Resp 22 H 11/04/24 19:18 BP 144/84 H 11/04/24 19:18 Pulse Ox 93 L 11/04/24 19:18 O2 Del Method Room Air 11/04/24 18:28 Course Vital Signs Vital signs: Vital Signs Temperature 97.7 F 11/04/24 18:28 Pulse Rate 60 11/04/24 18:28 Respiratory Rate 18 11/04/24 18:28 Blood Pressure 143/90 H 11/04/24 18:28 Pulse Oximetry 97 11/04/24 18:28 Oxygen Delivery Method Room Air 11/04/24 18:28 Temperature 98.1 F 11/04/24 19:18 Pulse Rate 74 11/04/24 19:18 Respiratory Rate 22 H 11/04/24 19:18 Blood Pressure 144/84 H 11/04/24 19:18 Pulse Oximetry 93 L 11/04/24 19:18 Oxygen Delivery Method Room Air 11/04/24 18:28 Medical Decision Making MDM Narrative Medical decision making narrative: Pt with edema in lower legs, scrotum, mild edema in hands and sacral edema concerning for anasarca. PCP- not registration officer, reviewed pharmacy logs and pt had 4 days of 40 mg lasix and 4 days for spironolactone 50mg without relief... Outpt ultrasound scheduled for tomorrow Pt give 40mg of Lasik pending labs. Potassium noted to be significantly elevated 6.8 I confirmed with lab that the specimen was not hemolyzed. He does have acute on chronic renal insufficiency we discussed his anemia and he reported intermittent dark stools a rectal exam was performed and there is Hemoccult negative stool study. Patient be treated for potassium with calcium, bicarb, lokelma and D50. Lab Data Labs: Lab Results 11/04/24 11/04/24 Range/Units 18:50 19:31 WBC 6.0 (4.0-11.0) 10^3/uL RBC 2.77 L (4.70-6.10) 10^6/uL Hgb 8.1 L (14.0-18.0) g/dL Hct 24.9 L (42.0-54.0) % MCV 89.9 (80.0-94.0) fL MCH 29.2 (25.9-34.0) pg MCHC 32.5 (29.9-35.2) g/dL RDW 14.0 (11.0-15.0) % Plt Count 217 (150-450) 10^3/uL MPV 10.3 (9.5-13.5) fL Neut % (Auto) 73.1 (43.0-75.0) % Lymph % (Auto) 13.7 L (20.5-60.0) % [place] % (Auto) 8.8 (1.7-12.0) % Eos % (Auto) 3.2 (0.9-7.0) % Baso % (Auto) 1.0 (0.2-2.0) % Neut # (Auto) 4.4 (1.4-6.5) 10^3/uL Lymph # (Auto) 0.8 L (1.2-3.8) 10^3/uL [place] # (Auto) 0.5 (0.3-0.8) 10^3/uL Eos # (Auto) 0.2 (0.0-0.7) 10^3/uL Baso # (Auto) 0.1 (0.0-0.1) 10^3/uL Abs Immat Gran (auto) 0.01 (0.00-0.03) 10^3/uL Imm/Tot Granulo (auto) 0.2 (0.0-0.5) % PT 11.4 (9.0-11.6) sec INR 1.08 APTT 25.8 (22.3-36.2) sec Sodium 140 (136-145) mmol/L Potassium 6.8 H* (3.5-5.1) mmol/L Chloride 108 H (98-107) mmol/L Carbon Dioxide 22.3 (21.0-32.0) mmol/L Anion Gap 16.5 BUN 58.0 H (7.0-18.0) mg/dL Creatinine 2.68 H (0.70-1.30) mg/dL Est GFR ( Amer) 31 L (>=60 mL/min/1.73m^2) Est GFR (Non-Af Amer) 25 L (>=60 mL/min/1.73m^2) BUN/Creatinine Ratio 21.6 Glucose 153 H (74-106) mg/dL Calcium 8.3 L (8.5-10.1) mg/dL Total Bilirubin 0.2 (0.2-1.0) mg/dL AST 20 (15-37) U/L ALT 29 (16-63) U/L Alkaline Phosphatase 111 (46-116) U/L Troponin I High Sens 7.4 (4.0-76.1) pg/mL NT-Pro-B Natriuret Pep 791.0 (<=900.0) pg/mL Total Protein 6.5 (6.4-8.2) g/dL Albumin 3.0 L (3.4-5.0) g/dL Globulin 3.5 g/dL Albumin/Globulin Ratio 0.9 Lipase 41.0 (16.0-77.0) U/L Stool Occult Blood Negative ECG Data Attestation: I personally reviewed and interpreted this ECG as follows: Interpretation: EKG interpretation: Emergency Department physician interpretation, normal sinus rhythm 74 bpm, no ectopy, no ST segment elevation, normal axis. Discharge Plan Discharge Chief Complaint: Extremity Problem, Nontraumatic Clinical Impression: Anasarca, Acute kidney injury, Acute hyperkalemia Prescriptions / Home Meds: No Action lisinopril 20 mg tablet 20 mg PO DAILY Patient Comments: only on 20mg metoprolol tartrate 50 mg tablet 50 mg PO Q12H (DME) pen needle, diabetic [Easy Comfort Pen [place]] 31 gauge x 5/16 needle MISCELLANEOUS (DME) Dexcom G6 Sensor Device MISCELLANEOUS (DME) Dexcom G6 Engagement Liaison Misc MISCELLANEOUS (DME) Dexcom G6 Transmitter Device MISCELLANEOUS amlodipine 10 mg tablet 10 mg PO DAILY aspirin 81 mg tablet,chewable 1 tab PO DAILY atorvastatin 40 mg tablet 40 mg PO DAILY carvedilol 25 mg tablet 25 mg PO BID hydralazine 50 mg tablet 50 mg PO BID insulin glargine [Lantus Solostar U-100 Insulin] 100 unit/mL (3 mL) insulin pen 24 unit SUBCUT QPM insulin lispro [Humalog KwikPen Insulin] 100 unit/mL insulin pen 1 sliding scale dose SUBCUT TID levetiracetam 500 mg tablet 1,000 mg PO BID losartan 50 mg tablet 50 mg PO DAILY Print Language: Lao Referrals: Vincent Martinez MD [Primary Care Provider] - 1 week
[2024-11-04 19:15] LABS: Basophils Absolute Auto 0.1 10^3/uL (0.0-0.1); Eosinophils Absolute Auto 0.2 10^3/uL (0.0-0.7); Eosinophils Percent Auto 3.2 % (0.9-7.0); Hematocrit 24.9 % (42.0-54.0); Hemoglobin 8.1 g/dL (14.0-18.0); Immature Granulocytes Abs Auto 0.01 10^3/uL (0.00-0.03); Immature Granulocytes Pct Auto 0.2 % (0.0-0.5); Lymphocytes Absolute Auto 0.8 10^3/uL (1.2-3.8); Lymphocytes Percent Auto 13.7 % (20.5-60.0); Mean Corpuscular HGB Conc 32.5 g/dL (29.9-35.2); Mean Corpuscular Hemoglobin 29.2 pg (25.9-34.0); Mean Corpuscular Volume 89.9 fL (80.0-94.0); Mean Platelet Volume 10.3 fL (9.5-13.5); Monocytes Absolute Auto 0.5 10^3/uL (0.3-0.8); Monocytes Percent Auto 8.8 % (1.7-12.0); Neutrophils Absolute Auto 4.4 10^3/uL (1.4-6.5); Neutrophils Percent Auto 73.1 % (43.0-75.0); Platelet Count 217 10^3/uL (150-450); Red Blood Count 2.77 10^6/uL (4.70-6.10)
[2024-11-04] MEDS: FUROSEMIDE 40 MG/4 ML VIAL IVP (19:19)
[2024-11-04 19:22] LABS: INR 1.08; Partial Thromboplastin Time 25.8 sec (22.3-36.2); Prothrombin Time 11.4 sec (9.0-11.6)
[2024-11-04 19:33] LABS: Alanine Aminotransferase 29 U/L (16-63); Albumin Globulin Ratio 0.9; Alkaline Phosphatase 111 U/L (46-116); Anion Gap 16.5; Aspartate Amino Transferase 20 U/L (15-37); BUN Creatinine Ratio 21.6; Bilirubin Total 0.2 mg/dL (0.2-1.0); Calcium 8.3 mg/dL (8.5-10.1); Carbon Dioxide 22.3 mmol/L (21.0-32.0); Chloride 108 mmol/L (98-107); Estimated GFR (African America 31 (>=60 mL/min/1.73m^2); Estimated GFR (Non-African Ame 25 (>=60 mL/min/1.73m^2); Globulin 3.5 g/dL; Glucose 153 mg/dL (74-106); Sodium 140 mmol/L (136-145); Total Protein 6.5 g/dL (6.4-8.2); Troponin I High Sensitivity 7.4 pg/mL (4.0-76.1)
[2024-11-04 19:34] LABS: Potassium 6.8 mmol/L (3.5-5.1)
--- NOTE | 2024-11-04 19:36 | PC.NURSE ---
i walked into this patient's room to find awake and alert sitting upright on the bed talking to his son(bedside). I introduced myself to this patient and updated of the medication and waiting on x-ray results. this patient voices no concerns and shows no signs of distress
[2024-11-04 19:39] LABS: Internal Control Within Normal Limits; Occult Blood Negative
[2024-11-04] MEDS: ALBUTEROL SULFATE 2.5 MG/3 ML VIAL NEB IH (20:31)
[2024-11-04] MEDS: SODIUM BICARBONATE 8.4 % 50 MEQ/50 ML SYRINGE IV (20:43)
[2024-11-04] MEDS: DEXTROSE 50 %-WATER 25 GM/50 ML SYRINGE IV (20:43)
[2024-11-04] MEDS: CALCIUM GLUCONATE 1,000 MG/10 ML VIAL 1000 MG IVP (20:44)
[2024-11-04] MEDS: SODIUM ZIRCONIUM CYCLOSILICATE 10 GM POWD.PACK PO (20:44)
[2024-11-04 22:10] LABS: Bilirubin Urine NEGATIVE (NEGATIVE); Blood Urine TRACE-I (NEGATIVE); Clarity Urine CLEAR (CLEAR); Color Urine LT. YELLOW (YELLOW); Glucose Urine UA 100 mg/dL (NEGATIVE); Ketones Urine NEGATIVE (NEGATIVE); Leukocyte Esterase Urine NEGATIVE (NEGATIVE); Nitrite Urine NEGATIVE (NEGATIVE); Protein Urine 30 mg/dL (NEG/TRACE); Specific Gravity Urine 1.015 (1.005-1.025); Urobilinogen Urine 0.2 EU/dL (0.2-1.0); pH Urine 5.5 (5.0-9.0)
[2024-11-04 22:21] LABS: Bacteria Urine NONE SEEN #/HPF (NONE SEEN); Cast Seen? SEEN #/LPF (NONE SEEN); Crystals Seen? None Seen #/HPF (None Seen); Hyaline Casts Urine RARE; Mucus Urine NONE SEEN (NONE SEEN); RBC Urine 0-2 #/HPF (0-2); Squamous Epithelial Cell Urine RARE #/LPF (NONE/RARE); Urine Culture Indicated NO; WBC Urine NONE SEEN #/HPF (NONE SEEN)
[2024-11-04 22:23] LABS: Potassium 6.5 mmol/L (3.5-5.1)
[2024-11-05] VITALS (34 sets, daily range): BP systolic 129–188; BP diastolic 70–109; PULSE 65–90; TEMP 36.3–37; O2SAT 92–98; BMI 34.4
--- OUTSIDE RECORDS SUMMARY | 2024-11-05 00:13 | XMS_ITS | CCD ---
Author Organization [facility] CliniSymd Care Team Providers Care Technology Instructor Name Role Phone Vincent Winters MD Primary Care Provider [phone] SINGH ., DR GALLARDO Attending Unavailable HOY [...] HOY ., DR GALLARDO Primary Care Unavailable GLENARM, DR RAMIRO Cramer Consulting Unavailable HOY ., [...] UnavailVincent Hemphill MD Primary Care Unavaila wesly RFIAS, Jarod Orantes Attending UnavailVincent Hemphill MD Primary [...] Attending Unavailable Vincent Winters Referring Unavailable BRAYAN, STALNEY Admitting Unavailable CINTRA, RASHAD G Referring Unavailable [...] Propensity to adverse reactions to drug (disorder) [facility] Repository Medications Current Medications Medication Drug [...] sodium chloride 0.9 % 250 mL infusion ([id number]) (2 sources) Start: 09-28-2024 2.5-15 mg/hr ( [...] used to maintain goal. Use 20mm (Blue) [id number] Adapter Preparation instructions: Attach medication vial to one 20mm (Blue) [id number] adapter. Darvin fluid bag with adapter, mix, and administer per order. 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 This test has not beencleared or approved by the U.S. Food and DrugAdministration.+ +: PERFORMING SITE LEGEND :+ +: MCR : [facility] :: : [address] [place] [address] :+ +Re ceived and reported dates and times are reported in USCentral Time. Performed By: #### C MIS1 ####Search to Phone2222 [place] [address] [facility] Director: Ramiro Mark MD Basic Metabolic Panelon 12-2 Anion gap [Moles/Vol] 8 mmol/L Low 9 - 16 mmol/L ePrep Calcium [Mass/Vol] 8.2 mg/dL Low 8.6 - 10. 4 mg/dL ePrep Chloride [Moles/Vol] 106 mmol/L 98 - 10 7 mmol/L ePrep CO2 [Moles/Vol] 23 mmol/L 20 - 31 mmol/L ePrep Creatinine [Mass/Vol] 2.0 mg/dL High 0.70 - 1.20 mg/dL ePrep Est, Glovanesa Filt Rate 41 Low - PINF [facility] [employer] Comment on above: These results are not [...] 166 mg/dL High 74 - 99 mg/dL ePrep Interpretation and review of laboratory results Abnormal ePrep Potassium [Moles/Vol] 5.8 mmol/L High 3.7 - 5.3 mmol/L ePrep Sodium [Moles/Vol] 137 mmol/L 136 - 145 mmol/L [facility] Urea nitrogen [Mass/Vol] 46 mg/dL High 6 - 20 mg/dL [facility] Urea nitrogen/Creatinine [Mass ratio] 23 mg/mg High 9 - 20 [facility] Basic Metabolic Profon 10-14 Anion gap [Moles/Vol] 8 mmol/L Low 9-16 [facility] Comment on above: Performed By: #### B MP #### [facility] [address] [place], [place] [id number] [employer] Clothier: Ramiro Santillan MD BUN/CRE Ratio 23 High 9-20 [facility] Comment on above: Performed By: #### B MP #### [facility] [address] [place], [place] [id number] [employer]: Ramiro Santillan MD Calcium [Mass/Vol] 8.2 mg/dL Low 8.6-10.4 [facility] Comment on above: Performed By: #### B MP #### [facility] [address] [place], [place] [id number] [employer] Cl[employer]ier: Ramiro Santillan MD Chloride [Moles/Vol] 106 mmol/L Normal 98-107 [facility] Comment on above: Performed By: #### B MP #### [facility] [address] [place], [place] [id number] [employer] Cl[employer]ier: Ramiro Santillan MD CO2 [Moles/Vol] 23 mmol/L Normal 20-31 [facility] Comment on above: Performed By: #### B MP #### [facility] [address] [place], [place] [phone] [employer] Clothier: Ramiro Santillan MD Creatinine [Mass/Vol] 2.0 mg/dL High 0.70-1.20 [facility] Comment on above: Performed By: #### B MP #### [facility] [address] [place], [place] [id number] Custom Clothier: Ramiro Santillan MD GFR/1.73 sq M.predicted among non-blacks MDRD (S/P/Bld) [Vol rate/Area] 41 mL/min/{1.73_m2} Low >60 [facility] Comment on above: Result Comment: These [...] secretion. Performed By: #### B MP #### [facility] [address] [place] [address] [place] [address] [employer]: Ramiro Santillan MD Glucose [Mass/Vol] 166 mg/dL High 74-99 [facility] Comment on above: Performed By: #### B MP #### [facility] [address] [place] [address] [place] [place], [place] [phone] Custom Clothier: Ramiro Santillan MD Potassium [Moles/Vol] 5.8 mmol/L High 3.7-5.3 [facility] Comment on above: Performed By: #### B MP #### [facility] [address] [place] [address] Dr[place], [place] [phone] Custom Clothier: Ramiro Santillan MD Sodium [Moles/Vol] 137 mmol/L Normal 136-145 [facility] Comment on above: Performed By: #### B MP #### [facility] [address] [place], [place] [phone] Custom Clothier: Ramiro Santillan MD Urea nitrogen [Mass/Vol] 46 mg/dL High 6-20 [facility] Comment on above: Performed By: #### B MP #### [facility] [address] [place] [address] Custom Clothier: Ramiro Santillan MD Hemoglobin A1Con 10-08-[address] Gluc >427 Normal [facility] Comment on above: Result Comment: SIMONA ECTED ON 10/08 AT 1012: PREVIOUSLY REPORTED Sent to reference laboratory. Separate report to follow. The ADA and AACC recommend providing the estimated average glucose result to permit better patient understanding of their HBA1c result. Performed By: #### L ACTIC #### [facility] [address] [place] [address] Custom Clothier: Ramiro Santillan MD HbA1c (Bld) [Mass fraction] % High 4.0-6.0 [facility] Comment on above: Result Comment: SIMONA ECTED ON 10/08 AT 1012: PREVIOUSLY REPORTED Sent to reference laboratory. Separate report to follow. Performed By: #### L ACTIC #### [facility] [address] [place] [address] Custom Clothier: Ramiro Santillan MD Cult,CSFon 10-07-2024 Cult,CSF Normal [facility] Comment on above: Performed By: #### C FC ####[facility] [address] [place], [place] [phone] Director: Ramiro Mark MD Basic Metab w/rfx MGon 10-06 Anion gap [Moles/Vol] 7 mmol/L Low 9-16 [facility] Comment on above: Performed By: #### B CAMILO GONCALVES CDP ####[facility] [address] [place], [place] [phone] Director: Ramiro Mark MD Calcium [Mass/Vol] 8.3 mg/dL Low 8.6-10.4 [facility] Comment on above: Performed By: #### B CAMILO GONCALVES CDP ####[facility] [address] [place], [place] [phone] Director: Ramiro Mark MD Chloride [Moles/Vol] 102 mmol/L Normal 98-107 [facility] Comment on above: Performed By: #### B CAMILO GONCALVES CDP ####[facility] [address] [place], [place] [phone] Director: Ramiro Mark MD CO2 [Moles/Vol] 23 mmol/L Normal 20-31 [facility] Comment on above: Performed By: #### B CAMILO GONCALVES CDP ####[facility] [address] [place], [place] [phone] Director: Ramiro Mark MD Creatinine [Mass/Vol] 2.1 mg/dL High 0.7-1.2 [facility] Comment on above: Performed By: #### B CAMILO GONCALVES CDP ####[facility] [address] [place] [address] [phone] Director: Ramiro Mark MD GFR/1.73 sq M.predicted among non-blacks MDRD (S/P/Bld) [Vol rate/Area] 38 mL/min/{1.73_m2} Low >60 [facility] Comment on above: Result Comment: Thes [...] Performed By: #### B CAMILO GONCALVES CDP ####[facility] [address]xy[address]ijxnbj60[address] [place], [place] [phone] Director: Ramiro Mark MD Glucose [Mass/Vol] 250 mg/dL High 74-99 [facility] Comment on above: Performed By: #### B CAMILO GONCALVES CDP ####[facility] [address] [place], [place] [phone] Director: Ramiro Makr MD Potassium [Moles/Vol] 4.6 mmol/L Normal 3.7-5.3 [facility] Comment on above: Result Comment: Spec imen hemolysis has exceeded the interference as defined by Jaime. Value may be falsely increased. Suggest recollection if clinically indicated. Performed By: #### B CAMILO GONCALVES CDP ####[employer] [address] [place], [place] [phone] Lab Director: Ramiro Mark MD Sodium [Moles/Vol] 132 mmol/L Low 136-145 [facility] Comment on above: Performed By: #### B CAMILO GONCALVES CDP ####[employer] [address] [place], [place] [phone] Lab Director: Ramiro Mark MD Urea nitrogen [Mass/Vol] 47 mg/dL High 6-20 [facility] Comment on above: Performed By: #### B CAMILO GONCALVES CDP ####[employer] [address] [place] [address] Lab Director: Ramiro Mark MD Basic Metabolic Panel w/ Ref jose to MGon 10-06-2024 Anion gap [Moles/Vol] 7 mmol/L Low 9 - 16 mmol/L [facility] Calcium [Mass/Vol] 8.3 mg/dL Low 8.6 - 10. 4 mg/dL [facility] Chloride [Moles/Vol] 102 mmol/L 98 - 10 7 mmol/L [facility] CO2 [Moles/Vol] 23 mmol/L 20 - 31 mmol/L [facility] Creatinine [Mass/Vol] 2.1 mg/dL High 0.7 - 1.2 mg/dL [facility] Est, Glom Filt Rate 38 Low - PINF [facility] Glucose [Mass/Vol] 250 mg/dL High 74 - 99 mg/dL [facility] Interpretation and review of laboratory results Abnormal [facility] Potassium [Moles/Vol] 4.6 mmol/L 3.7 - 5.3 mmol/L [facility] Sodium [Moles/Vol] 132 mmol/L Low 136 - 145 mmol/L [facility] Urea nitrogen [Mass/Vol] 47 mg/dL High 6 - 20 mg/dL [facility] CBC with Auto Differentialon 10-06-2024 Basophils (Bld) [#/Vol] 0.06 10*3/uL [facility] Basophils/100 WBC (Bld) 1 % 0 - 2 % [facility] Eosinophils (Bld) [#/Vol] 0.32 10*3/uL [facility] Eosinophils/100 WBC (Bld) 5 % High 1 - 4 % [facility] Erythrocyte distribution width (RBC) [Ratio] 13.0 % 11.8 - 14.4 % [facility] Hematocrit (Bld) [Volume fraction] 26.5 % Low 40.7 - 50.3 % [facility] Hemoglobin (Bld) [Mass/Vol] 8.8 g/dL Low 13.0 - 17.0 g/dL [facility] Immature granulocytes (Bld) [#/Vol] 0.04 10*3/uL [facility] Immature granulocytes/100 WBC (Bld) 1 % High 0 [facility] Interpretation and review of laboratory results Abnormal [facility] Lymphocytes/100 WBC (Bld) 19 % Low 24 - 43 % [facility] Lymphocytes/100 WBC (Bld) 1.39 % [facility] MCH (RBC) [Entitic mass] 28.5 pg 25.2 - 33.5 pg [facility] MCHC (RBC) [Mass/Vol] 33.2 g/dL 28.4 - 34.8 g/dL [facility] MCV (RBC) [Entitic vol] 85.8 fL 82.6 - 102.9 fL [facility] Monocytes/100 WBC (Bld) 9 % 3 - 12 % [facility] Monocytes/100 WBC (Bld) 0.61 % [facility] Neutrophils/100 WBC (Bld) 65 % 36 - 65 % [facility] Nucleated RBC/100 WBC (Bld) [Ratio] 0.0 % 0.0 per 100 WBC [facility] Platelet mean volume (Bld) [Entitic vol] 10.1 fL 8.1 - 13.5 fL [facility] Platelets (Bld) [#/Vol] 210 10*3/uL [facility] RBC (Bld) [#/Vol] 3.09 10*6/uL Low 4.21 - 5.7 7 m/uL [facility] Segmented neutrophils/100 WBC (Bld) 4.76 % [facility] WBC other (Bld) [#/Vol] 7.2 [facility] CBC with Diffon 10-06-2024 Abs. Basophil 0.06 k/uL Normal 0.00-0.20 [facility] Comment on above: Performed By: #### B CAMILO GONCALVES, CDP ####[facility] [address] [place] [address] Lab Director: Ramiro Mark MD Abs.Imm.Granulocyte 0.04 k/uL Normal 0.00-0.30 [facility] Comment on above: Performed By: #### B CAMILO GONCALVES, CDP ####[facility] [address] [place] [address] Lab Director: Ramiro Mark MD Abs.Neutrophil (Seg) 4.76 k/uL Normal 1.50-8.10 [facility] Comment on above: Performed By: #### B CAMILO GONCALVES, CDP ####[facility] [address] [place] [address] Lab Director: Ramiro Mark MD Basophils/100 WBC (Bld) 1 % Normal 0-2 [facility] Comment on above: Performed By: #### B CAMILO GONCALVES, CDP ####[facility] [address] [place] [address] Lab Director: Ramiro Mark MD Eosinophils (Bld) [#/Vol] 0.32 10*3/uL Normal 0.00-0.44 [facility] Comment on above: Performed By: #### B CAMILO GONCALVES, CDP ####[facility] [address]14 [place], [place] [phone] Director: Ramiro Mark MD Eosinophils/100 WBC (Bld) 5 % High 1-4 [facility] Comment on above: Performed By: #### B CAMILO GONCALVES, CDP ####[facility] [address]uz[address] [place], [place] [address])[phone] Director: Ramiro Mark MD Erythrocyte distribution width (RBC) [Ratio] 13.0 % Normal 11.8-14.4 [facility] Comment on above: Performed By: #### B CAMILO GONCALVES, CDP ####[facility] [address] [place], [place] [address])[phone] Director: Ramiro Mark MD Hematocrit (Bld) [Volume fraction] 26.5 % Low 40.7-50.3 [facility] Comment on above: Performed By: #### B CAMILO GONCALVES, CDP ####[facility] [address] [place] [address])[phone] Director: Ramiro Mark MD Hemoglobin (Bld) [Mass/Vol] 8.8 g/dL Low 13.0-17.0 [facility] Comment on above: Performed By: #### B CAMILO GONCALVES, CDP ####[facility] Nvdpbdojqqhl3613 [place], [place] [phone] Director: Ramiro Mark MD Immature granulocytes/100 WBC (Bld) 1 % High 0 [facility] Comment on above: Performed By: #### B CAMILO GONCALVES, CDP ####[facility] Qdmkohppskcm2361 [place], [place] [phone] Director: Ramiro Mark MD Lymphocytes (Bld) [#/Vol] 1.39 10*3/uL Normal 1.10-3.70 [facility] Comment on above: Performed By: #### B CAMILO GONCALVES, CDP ####[facility] [address] [place] [address] [phone] Director: Ramiro Mark MD Lymphocytes/100 WBC (Bld) 19 % Low 24-43 [facility] Comment on above: Performed By: #### B CAMILO GONCALVES, CDP ####[facility] [address] [place] [address])[phone] Director: aRmiro Mark MD MCH (RBC) [Entitic mass] 28.5 pg Normal 25.2-33.5 [facility] Comment on above: Performed By: #### B CAMILO GONCALVES, CDP ####[facility] [address] [place] [phone])[phone] Director: Ramiro Mark MD MCHC (RBC) [Mass/Vol] 33.2 g/dL Normal 28.4-34.8 [facility] Comment on above: Performed By: #### B CAMILO GONCALVES, CDP ####[facility] [address] [place] [address] [phone] Director: Ramiro Mark MD MCV (RBC) [Entitic vol] 85.8 fL Normal 82.6-102.9 [facility] Comment on above: Performed By: #### B CAMILO GONCALVES, CDP ####[facility] [address] [place] [address])[phone] Director: Ramiro Mark MD Monocytes (Bld) [#/Vol] 0.61 10*3/uL Normal 0.10-1.20 [facility] Comment on above: Performed By: #### B CAMILO GONCALVES, CDP ####[facility] [address]hc[address] [place], [place] [phone] Director: Ramiro Mark MD Monocytes/100 WBC (Bld) 9 % Normal 3-12 [facility] Comment on above: Performed By: #### B MPX, KELLYPPRA, CDP ####[facility] [address]xscwn5433 [place], [place] [phone] Director: Ramiro Mark MD Neutrophil (Seg) 65 % Normal 36-65 [facility] Comment on above: Performed By: #### B MPX, KELLYPPRA, CDP ####[facility] [address] [place] [address] [phone] Director: Ramiro Mark MD NRBC Automated 0.0 per 100 WBC Normal 0.0 [facility] Comment on above: Performed By: #### B MPXCAMILO, CDP ####[facility] [address] [place] [address] [phone] Director: Ramiro Mark MD Platelet mean volume (Bld) [Entitic vol] 10.1 fL Normal 8.1-13.5 [facility] Comment on above: Performed By: #### B CAMILO GONCALVES, CDP ####[facility] [address] [place] [address])[phone] Director: Ramiro Mark MD Platelets (Bld) [#/Vol] 210 10*3/uL Normal 138-453 [facility] Comment on above: Performed By: #### B CAMILO GONCALVES, CDP ####[facility] Zaw[address]fr[address]7712 [place], [place] [phone] Director: Ramiro Mark MD RBC (Bld) [#/Vol] 3.09 10*6/uL Low 4.21-5.77 [facility] Comment on above: Performed By: #### B MPXCAMILO, CDP ####[facility] [address] [place], [place] [phone] Director: Ramiro Mark MD WBC (Bld) [#/Vol] 7.2 10*3/uL Normal 3.5-11.3 [facility] Comment on above: Performed By: #### B CAMILO GONCALVES CDP ####[facility] [address]hjf[address] [place], [place] [phone] [facility] Director: Ramiro Mark MD Glucose,Whole Bloodon 2023 Glucose [Mass/Vol] 205 mg/dL High 75-110 [facility] Glucose [Mass/Vol] 187 mg/dL High 75-110 [facility] Glucose [Mass/Vol] 203 mg/dL High 75-110 [facility] Glucose [Mass/Vol] 220 mg/dL High 75-110 [facility] Keppraon 10-06-2024 KEPP 30 ug/mL Normal [facility] Comment on above: Result Comment: A [...] By: #### B CAMILO GONCALVES CDP ####[facility] Sx[address] [place], [place] [id number] [facility] Director: Ramiro Mark MD Levetiracetam Levelon 2023 levETIRAcetam [Mass/Vol] 30 ug/mL [facility] Oligoclonal Bandson 10-06-20 24 CSF Isoelectric Focusing Interpretation See Note ePrep Oligo Bands Negative ePrep Oligoclonal bands Isoelectric focusing (CSF) [#] [address] [facility] HospitalUniversityLyfe [facility] Hospital[facility] CSF IEF Interp See Note Normal [facility] Comment on above: Result Comment: (NOT [...] exercise caution when interpreting the results.Performed By: [facility] [address] [place] [address] [id number] Director: Rogelio Miranda MD, PhDCLIA Number: [id number] Performed By: #### A OLIG ####[address] [address] Lab Director: Wil Swanson MD#### OLIG ####[address] [phone] Lab Director: Ramiro Mark MD Oligo Bands Numb 0 Bands Normal 0-1 [facility] Comment on above: Performed By: #### A OLIG ####[address] [address] Lab Director: Wil Swanson MD#### OLIG ####[address] [id number] Lab Director: Ramiro Mark MD Oligoclonal Bands Negative Normal [facility] Comment on above: Performed By: #### A OLIG ####[address] [address] Lab Director: Wil Swanson MD#### OLIG ####[address] [address] Lab Director: Ramiro Mark MD POC Glucose Fingerstickon Glucose [Mass/Vol] 205 mg/dL High 75 - 110 mg/dL [facility] Interpretation and review of laboratory results Abnormal [facility] Glucose [Mass/Vol] 187 mg/dL High 75 - 110 mg/dL [facility] Interpretation and review of laboratory results Abnormal [facility] Glucose [Mass/Vol] 203 mg/dL High 75 - 110 mg/dL [facility] Interpretation and review of laboratory results Abnormal [facility] Glucose [Mass/Vol] 220 mg/dL High 75 - 110 mg/dL [facility] Interpretation and review of laboratory results Abnormal [facility] VITAMIN B1on 10-06-2024 Thiamine pyrophosphate (Bld) [Moles/Vol] 107 nmol/L 70 - 180 nmol/L [facility] Vitamin B1on 10-06-2024 Vitamin B1 107 nmol/L Normal 70-180 [facility] Comment on above: Result Comment: (NOT E)INTERPRETIVE INFORMATION: Vitamin B1, Whole BloodThis assay measures the concentration of thiamine diphosphate(TDP), the primary active form of vitamin B1. Approximately 90percent of vitamin B1 present in whole blood is TDP. Thiamine andthiamine monophosphate, which comprise the remaining 10 percent,are not measured.This test was developed and its performance characteristicsdetermined by [facility]. It has not been cleared orapproved by the [place] Food and Drug Administration. This test wasperformed in a CLIA certified laboratory and is intended forclinical purposes.Performed By: [facility] [place] [address]Ttzghlassy Director: Rogelio Miranda MD, PhDCLIA Number: [id number] Performed By: #### B 12JATNI, TOO ####[facility] [place] [address] Lab Director: Ramiro Mark MD#### AVITB1 ####[address] [place], [place] [id number] lab Director: Wil Swanson MD WEST NILE VIRUS, CSFon 10-06 WEST NILE AB IGG CSF 0.38 NINF [facility] WEST NILE AB IGM CSF 0.00 NINF [facility] West Nile Virus, CSFon 10-06 WNV Ab IgG, CSF 0.38 IV Normal <=1.29 [facility] Comment on above: Result Comment: (NOT [...] other members of the Flaviviridae family,such as Greer encephalitis virus, show extensivecross-reactivity with West Nile virus, serologic testing specificfor these species should be considered.The detection of antibodies to West Nile virus in cerebrospinalfluid may indicate central nervous system infection. However,consideration must be given to possible contamination by blood ortransfer of serum antibodies across the blood-brain barrier.This test was developed and its performance characteristicsdetermined by [facility]. It has not been cleared orapproved by the [place] Food and Drug Administration. This test wasperformed in a CLIA certified laboratory and is intended forclinical purposes. Performed By: #### C FCNT, CGLU, MEVP, CTP, CFVD ####Search to Phone2222 [place] [address] Lab Director: Ramiro Mark MD#### ABHINAV BRIGGSCT ####[facility] [place] [address] Lab Director: Wil Swanson MD WNV Ab IgM, CSF 0.00 IV Normal <=0.89 [facility] Comment on above: Result Comment: (NOT [...] other members of the Flaviviridae family,such as Greer encephalitis virus, show extensivecross-reactivity with West Nile virus, serologic testing specificfor these species should be considered.The detection of antibodies to West Nile virus in cerebrospinalfluid may indicate central nervous system infection. However,consideration must be given to possible contamination by blood ortransfer of serum antibodies across the blood-brain barrier.This test was developed and its performance characteristicsdetermined by [facility]. It has not been cleared orapproved by the [place] Food and Drug Administration. This test wasperformed in a CLIA certified laboratory and is intended forclinical purposes.Performed By: [facility] [place] [address] [id number] Director: Rogelio Miranda MD, PhDCLIA Number: [id number] Performed By: #### C FCNT, CGLU, MEVP, CTP, CFVD ####Search to Phone2222 [place] [address] Lab Director: Ramiro Mark MD#### [place], ALYMCT ####[facility] [place] [address] [phone] Lab Director: Wil Swanson MD Basic Metab w/rfx MGon 10-05 Anion gap [Moles/Vol] 8 mmol/L Low 9-16 [facility] Comment on above: Performed By: #### C DP, BMPX ####Search to Phone2222 [place], [place] [phone] Director: Ramiro Mark MD Calcium [Mass/Vol] 7.9 mg/dL Low 8.6-10.4 [facility] Comment on above: Performed By: #### C DP, BMPX ####[address] [phone] Director: Ramiro Mark MD Chloride [Moles/Vol] 103 mmol/L Normal 98-107 [facility] Comment on above: Performed By: #### C DP, BMPX ####[facility] [address] [place] [address] [phone] Director: Ramiro Mark MD CO2 [Moles/Vol] 24 mmol/L Normal 20-31 [facility] Comment on above: Performed By: #### C DP, BMPX ####[address] [phone] Director: Ramiro Mark MD Creatinine [Mass/Vol] 2.0 mg/dL High 0.7-1.2 [facility] Comment on above: Performed By: #### C DP, BMPX ####[address] [phone] Director: Ramiro Mark MD GFR/1.73 sq M.predicted among non-blacks MDRD (S/P/Bld) [Vol rate/Area] 40 mL/min/{1.73_m2} Low >60 [facility] Comment on above: Result Comment: Thes [...] Performed By: #### C DP, BMPX ####[facility] [address] [place] [address] Lab Director: Ramiro Mark MD Glucose [Mass/Vol] 189 mg/dL High 74-99 [facility] Comment on above: Performed By: #### C DP, BMPX ####[facility] [address]bt1870 [place] [address] Lab Director: Ramiro Mark MD Potassium [Moles/Vol] 4.5 mmol/L Normal 3.7-5.3 [facility] Comment on above: Performed By: #### C DP, BMPX ####[facility] [address]elm1620 [place] [address] Lab Director: Ramiro Mark MD Sodium [Moles/Vol] 135 mmol/L Low 136-145 [facility] Comment on above: Performed By: #### C DP, BMPX ####[facility] [address]9709 [place] [address] Lab Director: Ramiro Mark MD Urea nitrogen [Mass/Vol] 46 mg/dL High 6-20 [facility] Comment on above: Performed By: #### C DP, BMPX ####[facility] [address]esc4298 [place] [address] Lab Director: Ramiro Mark MD Basic Metabolic Panel w/ Ref jose to on 10-05-2024 Anion gap [Moles/Vol] 8 mmol/L Low 9 - 16 mmol/L [facility] Calcium [Mass/Vol] 7.9 mg/dL Low 8.6 - 10. 4 mg/dL [facility] Chloride [Moles/Vol] 103 mmol/L 98 - 10 7 mmol/L [facility] CO2 [Moles/Vol] 24 mmol/L 20 - 31 mmol/L [facility] Creatinine [Mass/Vol] 2.0 mg/dL High 0.7 - 1.2 mg/dL [facility] Est, Glom Filt Rate 40 Low - PINF [facility] Glucose [Mass/Vol] 189 mg/dL High 74 - 99 mg/dL [facility] Interpretation and review of laboratory results Abnormal [facility] Potassium [Moles/Vol] 4.5 mmol/L 3.7 - 5.3 mmol/L [facility] Sodium [Moles/Vol] 135 mmol/L Low 136 - 145 mmol/L [facility] Urea nitrogen [Mass/Vol] 46 mg/dL High 6 - 20 mg/dL [facility] CBC with Auto Differentialon 10-05-2024 Basophils (Bld) [#/Vol] 0.04 10*3/uL [facility] Basophils/100 WBC (Bld) 1 % 0 - 2 % [facility] Eosinophils (Bld) [#/Vol] 0.28 10*3/uL [facility] Eosinophils/100 WBC (Bld) 4 % 1 - 4 % [facility] Erythrocyte distribution width (RBC) [Ratio] 13.0 % 11.8 - 14.4 % [facility] Hematocrit (Bld) [Volume fraction] 25.8 % Low 40.7 - 50.3 % [facility] Hemoglobin (Bld) [Mass/Vol] 8.3 g/dL Low 13.0 - 17.0 g/dL [facility] Immature granulocytes (Bld) [#/Vol] 0.03 10*3/uL [facility] Immature granulocytes/100 WBC (Bld) 1 % High 0 [facility] Interpretation and review of laboratory results Abnormal [facility] Lymphocytes/100 WBC (Bld) 20 % Low 24 - 43 % [facility] Lymphocytes/100 WBC (Bld) 1.29 % [facility] MCH (RBC) [Entitic mass] 28.3 pg 25.2 - 33.5 pg [facility] MCHC (RBC) [Mass/Vol] 32.2 g/dL 28.4 - 34.8 g/dL [facility] MCV (RBC) [Entitic vol] 88.1 fL 82.6 - 102.9 fL [facility] Monocytes/100 WBC (Bld) 10 % 3 - 12 % [facility] Monocytes/100 WBC (Bld) 0.68 % [facility] Neutrophils/100 WBC (Bld) 64 % 36 - 65 % [facility] Nucleated RBC/100 WBC (Bld) [Ratio] 0.0 % 0.0 per 100 WBC [facility] Platelet mean volume (Bld) [Entitic vol] 10.4 fL 8.1 - 13.5 fL [facility] Platelets (Bld) [#/Vol] 198 10*3/uL [facility] RBC (Bld) [#/Vol] 2.93 10*6/uL Low 4.21 - 5.7 7 m/uL [facility] Linea Segmented neutrophils/100 WBC (Bld) 4.20 % [facility] WBC other (Bld) [#/Vol] 6.5 [facility] CBC with Diffon 10-05-2024 Abs. Basophil 0.04 k/uL Normal 0.00-0.20 [facility] Comment on above: Performed By: #### C DP, BMPX ####[facility] HospitalDynamic Organic LightWcetiymmpowz3299 [place], [place] [address])[phone] Director: Ramiro Mark MD Abs.Imm.Granulocyte 0.03 k/uL Normal 0.00-0.30 [facility] Comment on above: Performed By: #### C DP, BMPX ####[facility] HospitalGAP [facility] [address] [place] [address] Lab Director: Ramiro Mark MD Abs.Neutrophil (Seg) 4.20 k/uL Normal 1.50-8.10 [facility] Comment on above: Performed By: #### C DP, BMPX ####[facility] HospitalG[facility] X[address]fsmb[address]4043 [place] [address] Lab Director: Ramiro Mark MD Basophils/100 WBC (Bld) 1 % Normal 0-2 [facility] Comment on above: Performed By: #### C DP, BMPX ####Search to Phone[address] [place] [address] [phone] Director: Ramiro Mark MD Eosinophils (Bld) [#/Vol] 0.28 10*3/uL Normal 0.00-0.44 [facility] Comment on above: Performed By: #### C DP, BMPX ####[address] [address])[phone] Director: Ramiro Mark MD Eosinophils/100 WBC (Bld) 4 % Normal 1-4 [facility] Comment on above: Performed By: #### C DP, BMPX ####[address] [address])[phone] Director: Ramiro Mark MD Erythrocyte distribution width (RBC) [Ratio] 13.0 % Normal 11.8-14.4 [facility] Comment on above: Performed By: #### C DP, BMPX ####[address] [address])[phone] Director: Ramiro Mark MD Hematocrit (Bld) [Volume fraction] 25.8 % Low 40.7-50.3 [facility] Comment on above: Performed By: #### C DP, BMPX ####[address] [address])[phone] Director: Ramiro Mark MD Hemoglobin (Bld) [Mass/Vol] 8.3 g/dL Low 13.0-17.0 [facility] Comment on above: Performed By: #### C DP, BMPX ####[address] [address])[phone] Director: Ramiro Mark MD Immature granulocytes/100 WBC (Bld) 1 % High 0 [facility] Comment on above: Performed By: #### C DP, BMPX ####[address] [address])[phone] Director: Ramiro Mark MD Lymphocytes (Bld) [#/Vol] 1.29 10*3/uL Normal 1.10-3.70 [facility] Comment on above: Performed By: #### C DP, BMPX ####[facility] [address] [place] [address] [phone] Director: Ramiro Mark MD Lymphocytes/100 WBC (Bld) 20 % Low 24-43 [facility] Comment on above: Performed By: #### C DP, BMPX ####[facility] [address] [place], [place] [address])[phone] Director: Ramiro Mark MD MCH (RBC) [Entitic mass] 28.3 pg Normal 25.2-33.5 [facility] Comment on above: Performed By: #### C DP, BMPX ####[address] [address])[phone] Director: Ramiro Makr MD MCHC (RBC) [Mass/Vol] 32.2 g/dL Normal 28.4-34.8 [facility] Comment on above: Performed By: #### C DP, BMPX ####[address] [phone] Director: Ramiro Mark MD MCV (RBC) [Entitic vol] 88.1 fL Normal 82.6-102.9 [facility] Comment on above: Performed By: #### C DP, BMPX ####[facility] [address] [place], [place] [phone] Director: Ramiro Mark MD Monocytes (Bld) [#/Vol] 0.68 10*3/uL Normal 0.10-1.20 [facility] Comment on above: Performed By: #### C DP, BMPX ####[facility] C[address]6 [place], [place] [phone] Director: Ramiro Mark MD Monocytes/100 WBC (Bld) 10 % Normal 3-12 [facility] Comment on above: Performed By: #### C DP, BMPX ####[address] [phone] Director: Ramiro Mark MD Neutrophil (Seg) 64 % Normal 36-65 [facility] Comment on above: Performed By: #### C DP, BMPX ####[address] [phone] Director: Ramiro Mark MD NRBC Automated 0.0 per 100 WBC Normal 0.0 [facility] Comment on above: Performed By: #### C DP, BMPX ####[address] [phone] Director: Ramiro Mark MD Platelet mean volume (Bld) [Entitic vol] 10.4 fL Normal 8.1-13.5 [facility] Comment on above: Performed By: #### C DP, BMPX ####[address] [phone] Director: Ramiro Mark MD Platelets (Bld) [#/Vol] 198 10*3/uL Normal 138-453 [facility] Comment on above: Performed By: #### C DP, BMPX ####[address] [address] Lab Director: Ramiro Mark MD RBC (Bld) [#/Vol] 2.93 10*6/uL Low 4.21-5.77 [facility] Comment on above: Performed By: #### C DP, BMPX ####[address] [phone] Director: Ramiro Mark MD WBC (Bld) [#/Vol] 6.5 10*3/uL Normal 3.5-11.3 [facility] Comment on above: Performed By: #### C DP, BMPX ####[facility] [address] [place] [phone] [facility] Director: Ramiro Mark MD Cytology, Non-Gynon 10-05-20 [facility] Electrophysiology procedureo n 10-05-2024 Body surface area Derived from formula 2 m2 [facility] Glucose,Whole Bloodon 2023 Glucose [Mass/Vol] 167 mg/dL High 75-110 [facility] Glucose [Mass/Vol] 268 mg/dL High 75-110 [facility] Glucose [Mass/Vol] 153 mg/dL High -110 [facility] Glucose [Mass/Vol] 177 mg/dL High [facility]110 [facility] Lyme Disease AB, CSFon 10-05 B. burgdorferi Ab IA Qn (CSF) 0.18 NINF [facility] Lyme Disease Ab,CSFon 2023 B burgdorferi Ab,CSF 0.18 IV Normal <=0.90 [facility] Comment on above: Result Comment: (NOT [...] was developed and its performance characteristicsdetermined by [facility]. It has not been cleared orapproved by the [place] Food and Drug Administration. This test wasperformed in a CLIA certified laboratory and is intended forclinical purposes.Performed By: [facility] [place], [place] [address]Dvrmlwdrxg Director: Rogelio Miranda MD, PhDCLIA Number: [id number] Performed By: #### C FCNT, CGLU, MEVP, CTP, CFVD ####[facility] HospitalDynamic Organic LightFagdkipzbaja9238 [place] [address] lab Director: Ramiro Mark MD#### AWNCSF, ALYMCT ####[facility] [place], [place] [id number] lab Director: Wil Swanson MD No Panel Informationon 10-05 [facility] CV CPACS HEMO [facility] Radiology Study observation (narrative) [facility] No Panel InformationOrdered By: Adrian Bryant on 10-05-2024 [facility] Linea Work Phone: Non-Utility Supervisor [employer] Cytologyon Case No: [id number] Normal [facility] Comment on above: Performed By: #### N HARDENING MACHINE OPERATOR HELPER ####Search to Phone2222 [place] [address] lab Director: Ramiro Mark MD POC Glucose Fingerstickon Glucose [Mass/Vol] 167 mg/dL High 75 - 110 mg/dL [facility] Interpretation and review of laboratory results Abnormal [facility] Glucose [Mass/Vol] 268 mg/dL High 75 - 110 mg/dL [facility] Interpretation and review of laboratory results Abnormal [facility] Glucose [Mass/Vol] 153 mg/dL High 75 - 110 mg/dL [facility] Interpretation and review of laboratory results Abnormal [facility] Glucose [Mass/Vol] 177 mg/dL High 75 - 110 mg/dL [facility] Interpretation and review of laboratory results Abnormal [facility] SURGICAL PATHOLOGY REPORTon 10-05-2024 Surgical Pathology Report [facility] US Heart Transesophagealon 1 12-06-2023 Body surface area Derived from formula 2 m2 [facility] EF Physician 55 % [facility] CV CPACS HEMO [facility] Radiology Study observation (narrative) [facility] VDRL, CSFon 10-05-2024 Reagin Ab VDRL Ql (CSF) Non-Reactive NONREACTIVE [facility] VDRL, Qual, CSFon 10-05-2024 VDRL, Qual, CSF Non-Reactive Normal NR [facility] Comment on above: Performed By: #### C FCNT, CGLU, MEVP, CTP, CFVD ####[facility] [address] [place] [address] Lab Director: Ramiro Mark MD#### CHESTER, ALYMCT ####[facility] [address] [place] [address] Lab Director: Wil Swanson MD Basic Metab w/rfx MGon 10-04 Anion gap [Moles/Vol] 10 mmol/L Normal 9-16 [facility] Comment on above: Performed By: #### P T, CDP, BMPX ####[facility] [address]64 [place] [address] Lab Director: Ramiro Mark MD Calcium [Mass/Vol] 7.9 mg/dL Low 8.6-10.4 [facility] Comment on above: Performed By: #### P T, CDP, BMPX ####[facility] [address]hptooon2057 [place] [address] Lab Director: Ramiro Mark MD Chloride [Moles/Vol] 102 mmol/L Normal 98-107 [facility] Comment on above: Performed By: #### P T, CDP, BMPX ####[facility] Tbm[address]ijodfu9297 [place] [address] Lab Director: Ramiro Mark MD CO2 [Moles/Vol] 21 mmol/L Normal 20-31 [facility] Comment on above: Performed By: #### P T, CDP, BMPX ####[facility] [address] [place], [place] [phone] Director: Ramiro Mark MD Creatinine [Mass/Vol] 1.8 mg/dL High 0.7-1.2 [facility] Comment on above: Performed By: #### P T, CDP, BMPX ####[address] [address])[phone] Director: Ramiro Mark MD GFR/1.73 sq M.predicted among non-blacks MDRD (S/P/Bld) [Vol rate/Area] 45 mL/min/{1.73_m2} Low >60 [facility] Comment on above: Result Comment: Thes [...] By: #### P T, CDP, BMPX ####[facility] [address] [place], [place] [phone] Director: Ramiro Mark MD Glucose [Mass/Vol] 161 mg/dL High 74-99 [facility] Comment on above: Performed By: #### P T, CDP, BMPX ####[facility] Mmeukv[address]4572 [place], [place] [phone] Director: Ramiro Mark MD Potassium [Moles/Vol] 4.1 mmol/L Normal 3.7-5.3 [facility] Comment on above: Performed By: #### P T, CDP, BMPX ####[facility] [address] [place], [place] [id number] Lab Director: Ramiro Mark MD Sodium [Moles/Vol] 133 mmol/L Low 136-145 [facility] Comment on above: Performed By: #### P T, CDP, BMPX ####[facility] [address] [place], [place] [phone] lab Director: Ramiro Mark MD Urea nitrogen [Mass/Vol] 40 mg/dL High 6-20 [facility] Comment on above: Performed By: #### P T, CDP, BMPX ####[facility] [address] [place], [place] [phone] lab Director: Ramiro Mark MD Basic Metabolic Panel w/ Ref jose to MGon 10-04-2024 Anion gap [Moles/Vol] 10 mmol/L 9 - 16 mmol/L [facility] Calcium [Mass/Vol] 7.9 mg/dL Low 8.6 - 10. 4 mg/dL [facility] Chloride [Moles/Vol] 102 mmol/L 98 - 10 7 mmol/L [facility] CO2 [Moles/Vol] 21 mmol/L 20 - 31 mmol/L [facility] Creatinine [Mass/Vol] 1.8 mg/dL High 0.7 - 1.2 mg/dL [facility] Est, Glom Filt Rate 45 Low - PINF [facility] Glucose [Mass/Vol] 161 mg/dL High 74 - 99 mg/dL [facility] Interpretation and review of laboratory results Abnormal [facility] Potassium [Moles/Vol] 4.1 mmol/L 3.7 - 5.3 mmol/L [facility] Sodium [Moles/Vol] 133 mmol/L Low 136 - 145 mmol/L [facility] Urea nitrogen [Mass/Vol] 40 mg/dL High 6 - 20 mg/dL [facility] CBC with Auto Differentialon 10-04-2024 Basophils (Bld) [#/Vol] 0.03 10*3/uL [facility] Basophils/100 WBC (Bld) 0 % 0 - 2 % [facility] Eosinophils (Bld) [#/Vol] 0.28 10*3/uL [facility] Eosinophils/100 WBC (Bld) 4 % 1 - 4 % [facility] Erythrocyte distribution width (RBC) [Ratio] 12.9 % 11.8 - 14.4 % [facility] Hematocrit (Bld) [Volume fraction] 29.9 % Low 40.7 - 50.3 % [facility] Hemoglobin (Bld) [Mass/Vol] 9.8 g/dL Low 13.0 - 17.0 g/dL [facility] Immature granulocytes (Bld) [#/Vol] [facility] Immature granulocytes/100 WBC (Bld) 0 % 0 [facility] Interpretation and review of laboratory results Abnormal [facility] Lymphocytes/100 WBC (Bld) 15 % Low 24 - 43 % [facility] Lymphocytes/100 WBC (Bld) 1.18 % [facility] MCH (RBC) [Entitic mass] 28.2 pg 25.2 - 33.5 pg [facility] MCHC (RBC) [Mass/Vol] 32.8 g/dL 28.4 - 34.8 g/dL [facility] MCV (RBC) [Entitic vol] 85.9 fL 82.6 - 102.9 fL [facility] Monocytes/100 WBC (Bld) 8 % 3 - 12 % [facility] Monocytes/100 WBC (Bld) 0.64 % [facility] Neutrophils/100 WBC (Bld) 73 % High 36 - 65 % [facility] Nucleated RBC/100 WBC (Bld) [Ratio] 0.0 % 0.0 per 100 WBC [facility] Platelet mean volume (Bld) [Entitic vol] 10.7 fL 8.1 - 13.5 fL [facility] Platelets (Bld) [#/Vol] 225 10*3/uL [facility] RBC (Bld) [#/Vol] 3.48 10*6/uL Low 4.21 - 5.7 7 m/uL [facility] Segmented neutrophils/100 WBC (Bld) 5.80 % [facility] WBC other (Bld) [#/Vol] 8.0 [facility] CBC with Diffon 10-04-2024 Abs. Basophil 0.03 k/uL Normal 0.00-0.20 [facility] Comment on above: Performed By: #### P T, CDP, BMPX ####[facility] [address] [place], [place] [address])[phone] Director: Ramiro Mark MD Abs.Imm.Granulocyte <0.03 Normal 0.00-0.30 [facility] Comment on above: Performed By: #### P T, CDP, BMPX ####[place], [place] [address])[phone] Director: Ramiro Mark MD Abs.Neutrophil (Seg) 5.80 k/uL Normal 1.50-8.10 [facility] Comment on above: Performed By: #### P T, CDP, BMPX ####[place], [place] [address])[phone] Director: Ramiro Mark MD Basophils/100 WBC (Bld) 0 % Normal 0-2 [facility] Comment on above: Performed By: #### P T, CDP, BMPX ####[place] [address] Lab Director: Ramiro Mark MD Eosinophils (Bld) [#/Vol] 0.28 10*3/uL Normal 0.00-0.44 [facility] Comment on above: Performed By: #### P T, CDP, BMPX ####[place], [place] [address])[phone] Director: Ramiro Mark MD Eosinophils/100 WBC (Bld) 4 % Normal 1-4 [facility] Comment on above: Performed By: #### P T, CDP, BMPX ####[facility] [address] [place] [address] Lab Director: Ramiro Mark MD Erythrocyte distribution width (RBC) [Ratio] 12.9 % Normal 11.8-14.4 [facility] Comment on above: Performed By: #### P T, CDP, BMPX ####[facility] [address] [place], [place] [address])[phone] Director: Ramiro Mark MD Hematocrit (Bld) [Volume fraction] 29.9 % Low 40.7-50.3 [facility] Comment on above: Performed By: #### P T, CDP, BMPX ####[address] [address])[phone] Director: Ramiro Mark MD Hemoglobin (Bld) [Mass/Vol] 9.8 g/dL Low 13.0-17.0 [facility] Comment on above: Performed By: #### P T, CDP, BMPX ####[place], [place] [address])[phone] Director: Ramrio Mark MD Immature granulocytes/100 WBC (Bld) 0 % Normal 0 [facility] Comment on above: Performed By: #### P T, CDP, BMPX ####[place], [place] [address])[phone] Director: Ramiro Mark MD Lymphocytes (Bld) [#/Vol] 1.18 10*3/uL Normal 1.10-3.70 [facility] Comment on above: Performed By: #### P T, CDP, BMPX ####[address] [address])[phone] Director: Ramiro Mark MD Lymphocytes/100 WBC (Bld) 15 % Low 24-43 [facility] Comment on above: Performed By: #### P T, CDP, BMPX ####[facility] [address] [place], [place] [phone])[phone] Director: Ramiro Mark MD MCH (RBC) [Entitic mass] 28.2 pg Normal 25.2-33.5 [facility] Comment on above: Performed By: #### P T, CDP, BMPX ####[facility] [address] [place] [address] [phone] Director: Ramiro Mark MD MCHC (RBC) [Mass/Vol] 32.8 g/dL Normal 28.4-34.8 [facility] Comment on above: Performed By: #### P T, CDP, BMPX ####[address] [phone] Director: Ramiro Mark MD MCV (RBC) [Entitic vol] 85.9 fL Normal 82.6-102.9 [facility] Comment on above: Performed By: #### P T, CDP, BMPX ####[facility] [address] [place] [address])[phone] Director: Ramiro Mark MD Monocytes (Bld) [#/Vol] 0.64 10*3/uL Normal 0.10-1.20 [facility] Comment on above: Performed By: #### P T, CDP, BMPX ####[facility] [address] [place] [address] [phone] Director: Ramiro Mark MD Monocytes/100 WBC (Bld) 8 % Normal 3-12 [facility] Comment on above: Performed By: #### P T, CDP, BMPX ####[facility] [address] [place] [address] [phone] Director: Ramiro Mark MD Neutrophil (Seg) 73 % High 36-65 [facility] Comment on above: Performed By: #### P T, CDP, BMPX ####[address] [phone] Director: Ramiro Mark MD NRBC Automated 0.0 per 100 WBC Normal 0.0 [facility] Comment on above: Performed By: #### P T, CDP, BMPX ####[address] [phone] Director: Ramiro Mark MD Platelet mean volume (Bld) [Entitic vol] 10.7 fL Normal 8.1-13.5 [facility] Comment on above: Performed By: #### P T, CDP, BMPX ####[address] [phone] Director: Ramiro Mark MD Platelets (Bld) [#/Vol] 225 10*3/uL Normal 138-453 [facility] Comment on above: Performed By: #### P T, CDP, BMPX ####[address] [phone] Director: Ramiro Mark MD RBC (Bld) [#/Vol] 3.48 10*6/uL Low 4.21-5.77 [facility] Comment on above: Performed By: #### P T, CDP, BMPX ####[address] [phone] Director: Ramiro Mark MD WBC (Bld) [#/Vol] 8.0 10*3/uL Normal 3.5-11.3 [facility] Comment on above: Performed By: #### P T, CDP, BMPX ####[address] [address] Lab Director: Ramiro Mark MD CSF Cell Counton 10-04-2024 Appearance (U) Clear Normal [facility] Comment on above: Performed By: #### C FCNT, CGLU, MEVP, CTP, CFVD ####[place] [id number] [place] [address] Lab Director: Ramiro Mark MD#### DESHAUN BRIGGS ####[facility] [address] [place] [address] Lab Director: Wil Swanson MD Clot Check None Seen Normal [facility] Comment on above: Performed By: #### C FCNT, CGLU, MEVP, CTP, CFVD ####[facility] [address] [place] [address] Lab Director: Ramiro Mark MD#### DESHAUN BRIGGS ####[facility] [address] [place] [address] Lab Director: Wil Swanson MD Color (U) Colorless Normal [facility] Comment on above: Performed By: #### C FCNT, CGLU, MEVP, CTP, CFVD ####[facility] [address] [place] [address] Lab Director: Ramiro Mark MD#### DESHAUN BRIGGS ####[facility] [address] [place] [address] [phone] Lab Director: Wil Swanson MD CSF Total Nucleated Cells 2 cells/uL Normal 0-5 [facility] Comment on above: Result Comment: Unab le to perform differential due to a low number of TNC/WBC's in specimen. Performed By: #### C FCNT, CGLU, MEVP, CTP, CFVD ####[facility] [address]lf[address] [place] [address] Lab Director: Ramiro Mark MD#### ABHINAV BRIGGSCT ####[facility] [address] [place] [address] Lab Director: Wil Swanson MD RBC (Bld) [#/Vol] 0 10*6/uL High 0 [facility] Comment on above: Performed By: #### C FCNT, CGLU, MEVP, CTP, CFVD ####[address] [address] Lab Director: Ramiro Mark MD#### CHESTER, ALYMCT ####[facility] [address] [place] [address] Lab Director: Wil Swanson MD Tube Number 3 Normal [facility] Comment on above: Performed By: #### C FCNT, CGLU, MEVP, CTP, CFVD ####[address] [address] Lab Director: Ramiro Mark MD#### CHESTER, ALYMCT ####[facility] [address] [place] [address] [phone] Lab Director: Wil Swanson MD Xanthochromia ABSENT Normal [facility] Comment on above: Performed By: #### C FCNT, CGLU, MEVP, CTP, CFVD ####[address] [address] Lab Director: Ramiro Mark MD#### CHESTER, ALYMCT ####[facility] [address] [place] [address] Lab Director: Wil Swanson MD Volume 8 mL Normal [facility] Comment on above: Performed By: #### C FCNT, CGLU, MEVP, CTP, CFVD ####[address] [address] Lab Director: Ramiro Mark MD#### TAMMYSJohn, ALYMCT ####[facility] [address] [place] [address] Lab Director: Wil Swanson MD Cell Count with Differential , CSFon 10-04-2024 Appearance (CSF) Clear [facility] Cells Counted Total (Bronch spec) [#] 2 [facility] Clot Check None Seen [facility] Color (CSF) Colorless [facility] Interpretation and review of laboratory results Abnormal [facility] RBC Manual cnt (Body fld) [#/Vol] 3 High 0 cells/uL [facility] Specimen volume (CSF) 8 mL [facility] Tube number Nom (CSF) [ID] 3 [facility] Xanthochromia Ql (CSF) ABSENT [facility] Glucose, CSFon 10-04-2024 Glucose (CSF) [Mass/Vol] 73 mg/dL High 40 - 70 mg/dL [facility] Glucose,CSFon 10-04-2024 Glucose [Mass/Vol] 73 mg/dL High 40-70 [facility] Comment on above: Performed By: #### C FCNT, CGLU, MEVP, CTP, CFVD ####[employer] [address] [place] [address] Lab Director: Ramiro Mark MD#### AWNCSF, ALYMCT ####[facility] [address] [place] [address] Lab Director: Wil Swanson MD Glucose,Whole Bloodon 2023 Glucose [Mass/Vol] 199 mg/dL High 75-110 [facility] Glucose [Mass/Vol] 197 mg/dL High 75-110 [facility] Glucose [Mass/Vol] 161 mg/dL High 75-110 [facility] Glucose [Mass/Vol] 148 mg/dL High 75-110 [facility] Guidance for puncture of Lum bar spineon 10-04-2024 MHPN RIS CONSOLIDATED PN RIS CONSOLIDATED [facility] Radiology Study observation (narrative) [facility] Guidance for puncture of Lum bar spineOrdered By: Faustino Hanna on 10-04-2024 [facility] Work Phone: IR LUMBAR PUNCTURE FOR DIAGN OSISon 10-04-2024 IR LUMBAR PUNCTURE FOR DIAGNOSIS Normal [facility] Meningitis Encephalitis Pane l CSF, Molecularon 10-04-2024 C. gattii+neoformans DNA MEETA+non-probe Ql (CSF) Not detected Not Detected [facility] CMV DNA MEETA+non-probe Ql (CSF) Not detected Not Detected [facility] E. coli K1 DNA MEETA+non-probe Ql (CSF) Not detected Not Detected [facility] Enterovirus RNA MEETA+non-probe Ql (CSF) Not detected Not Detected [facility] H. influenzae DNA MEETA+non-probe Ql (CSF) Not detected Not Detected [facility] HHV 6 DNA MEETA+non-probe Ql (CSF) Not detected Not Detected [facility] HSV 1 DNA MEETA+non-probe Ql (CSF) Not detected Not Detected [facility] HSV 2 DNA MEETA+non-probe Ql (CSF) Not detected Not Detected [facility] L. monocytogenes DNA MEETA+non-probe Ql (CSF) Not detected Not Detected [facility] N. meningitidis DNA MEETA+non-probe Ql (CSF) Not detected Not Detected [facility] Parechovirus A RNA MEETA+non-probe Ql (CSF) Not detected Not Detected [facility] S. agalactiae DNA MEETA+non-probe Ql (CSF) Not detected Not Detected [facility] S. pneumoniae DNA MEETA+non-probe Ql (CSF) Not detected Not Detected [facility] Specimen Description .CSF [facility] VZV DNA MEETA+non-probe Ql (CSF) Not detected Not Detected [facility] Meningitis Panelon C. neoformans/gattii Not detected Normal NOTDET [facility] Comment on above: Result Comment: Perf ormed by multiplexed nucleic acid assay. Performed By: #### C FCNT, CGLU, MEVP, CTP, CFVD ####[place] [address] [facility] Director: Ramiro Mark MD#### DESHAUN BRIGGS ####[facility] [address] [place] [address] Lab Director: Wil Swanson MD Cytomegalovirus Not detected Normal [facility] Comment on above: Performed By: #### C FCNT, CGLU, MEVP, CTP, CFVD ####[facility] [address] [place] [address] Lab Director: Ramiro Mark MD#### ARTUR BRIGGSYMCT ####[facility] [address] [place] [address] [phone] Lab Director: Wil Swanson MD Enterovirus Not detected Normal [facility] Comment on above: Performed By: #### C FCNT, CGLU, MEVP, CTP, CFVD ####[facility] [address] [place] [address] Lab Director: Ramiro Mark MD#### DESHAUN BRIGGS ####[facility] [address] [place] [address] [phone] Lab Director: Wil Swanson MD Escherichia coli K1 Not detected Normal [facility] Comment on above: Performed By: #### C FCNT, CGLU, MEVP, CTP, CFVD ####[facility] [address] [place] [address] Lab Director: Ramiro Mark MD#### ARTUR BRIGGSYMCT ####[facility] [address] [place] [address] [phone] Lab Director: Wil Swanson MD Haemoph. influenzae Not detected Normal [facility] Comment on above: Performed By: #### C FCNT, CGLU, MEVP, CTP, CFVD ####[facility] [address] [place] [address] Lab Director: Ramiro Mark MD#### CHESTER, ALYMCT ####[facility] [address] [place], [place] [phone] Lab Director: Wil Swanson MD HSV-1 Not detected Normal [facility] Comment on above: Performed By: #### C FCNT, CGLU, MEVP, CTP, CFVD ####[facility] [address] [place] [address] Lab Director: Ramiro Mark MD#### CHESTER, ALYMCT ####[facility] [address] [place] [address] [phone] Lab Director: Wil Swanson MD HSV-2 Not detected Normal [facility] Comment on above: Performed By: #### C FCNT, CGLU, MEVP, CTP, CFVD ####[place] [address] Lab Director: Ramiro Mark MD#### CHESTER, ALYMCT ####[facility] [address] [place] [address] [phone] Lab Director: Wil Swanson MD Human herpesvirus 6 Not detected Normal [facility] Comment on above: Performed By: #### C FCNT, CGLU, MEVP, CTP, CFVD ####[address] [address] Lab Director: Ramiro Mark MD#### CHESTER, ALYMCT ####[facility] [address] [place] [address] [phone] Lab Director: Wil Swanson MD Human parechovirus Not detected Normal [facility] Comment on above: Performed By: #### C FCNT, CGLU, MEVP, CTP, CFVD ####[facility] [address] [place] [address] Lab Director: Ramiro Mark MD#### CHESTER, ALYMCT ####[facility] [address] [place] [address] Lab Director: Wil Swanson MD List. monocytogenes Not detected Normal [facility] Comment on above: Performed By: #### C FCNT, CGLU, MEVP, CTP, CFVD ####[facility] [address] [place] [address] Lab Director: Ramiro Mark MD#### CHESTER, ALYMCT ####[facility] [address] [place] [address] [phone] Lab Director: Wil Swanson MD Neis. meningitidis Not detected Normal [facility] Comment on above: Performed By: #### C FCNT, CGLU, MEVP, CTP, CFVD ####[facility] [address] [place] [address] Lab Director: Ramiro Mark MD#### CHESTER ALYMCT ####[facility] [address] [place] [address] [phone] Lab Director: Wil Swanson MD Strep. agalactiae Not detected Normal [facility] Comment on above: Performed By: #### C FCNT, CGLU, MEVP, CTP, CFVD ####[facility] [address] [place] [address] Lab Director: Ramiro Mark MD#### CHESTER, ALYMCT ####[facility] [address] [place] [address] Lab Director: Wil Swanson MD Strep. pneumoniae Not detected Normal [facility] Comment on above: Performed By: #### C FCNT, CGLU, MEVP, CTP, CFVD ####[facility] [address] [place] [address] lab Director: Ramiro Mark MD#### ARTUR BRIGGSYMCT ####[facility] [address] [place], [place] [phone] Lab Director: Wil Swanson MD Varicella-zoster Not detected Normal [facility] Comment on above: Performed By: #### C FCNT, CGLU, MEVP, CTP, CFVD ####[address] [address] lab Director: Ramiro Mark MD#### ABHINAV BRIGGSCT ####[facility] [address] [place] [address] lab Director: Wil Swanson MD Source: .CSF Normal [facility] Comment on above: Performed By: #### C FCNT, CGLU, MEVP, CTP, CFVD ####[address] [address] lab Director: Ramiro Mark MD#### DESHAUN BRIGGS ####[facility] [address] [place] [address] lab Director: Wil Swanson MD Miscellaneouson 10-04-2024 Test Name ENC2 [facility] Comment on above: Performed By: #### C MIS1 ####[address] [address] Lab Director: Ramiro Mark MD No Panel Informationon 10-04 Interpretation and review of laboratory results Abnormal [facility] Oligoclonal Band Profileon 1 12-05-2023 Albumin Index - CSF 143.7 High <9.0 [facility] Comment on above: Performed By: #### A OLIG ####[facility] [address] [place], [place] [phone] Lab Director: Wil Swanson MD#### OLIG ####[facility] [address]3771 [place] [address] Lab Director: Ramiro Mark MD Albumin, CSF 431 mg/L High 70-350 [facility] Comment on above: Performed By: #### A OLIG ####[facility] [address] [place] [address] Lab Director: Wil Swanson MD#### OLIG ####[address] [address] Lab Director: Ramiro Mark MD IgG [Mass/Vol] 769 mg/dL Normal 700-1600 [facility] Comment on above: Performed By: #### A OLIG ####[facility] [address] [place] [address] Lab Director: Wil Swanson MD#### OLIG ####[address] [address] Lab Director: Ramiro Mark MD IgG Index, CSF 0.81 High <0.70 [facility] Comment on above: Performed By: #### A OLIG ####[facility] [address] [place] [address] Lab Director: Wil Swanson MD#### OLIG ####[facility] [place] [address] Lab Director: Ramiro Mark MD IgG Synthesis 18.0 mg/24 h High <3.3 [facility] Comment on above: Performed By: #### A OLIG ####[facility] [address] [place] [address] Lab Director: Wil Swanson MD#### OLIG ####[facility] [place] [address] Lab Director: Ramiro Mark MD IgG, CSF 9.0 mg/dL High 1.0-3.0 [facility] Comment on above: Performed By: #### A OLIG ####[facility] [address] [place] [address] [phone] Lab Director: Wil Swanson MD#### OLIG ####[address] [phone] Lab Director: Ramiro Mark MD Oligoclonal Bands Oligoclonal bands ar e performed at [facility] using isoelectric focusing [facility] Comment on above: Result Comment: and immunofixation. Performed By: #### A OLIG ####[address] [phone] Lab Director: Wil Swanson MD#### OLIG ####[address] [phone] lab Director: Ramiro Mark MD Albumin [Mass/Vol] 3.0 g/dL Low 3.5-5.2 [facility] Comment on above: Performed By: #### A OLIG ####[address] [phone] Lab Director: Wil Swanson MD#### OLIG ####[address] [phone] Lab Director: Ramiro Mark MD Oligoclonal Bandingon 2023 Albumin (CSF) [Mass/Vol] 431 mg/L High 70 - 350 mg/L [facility] Albumin [Mass/Vol] 3.0 g/dL Low 3.5 - 5.2 g/dL [facility] Albumin Index 143.7 High NINF - 9.0 [facility] IgG (CSF) [Mass/Vol] 9.0 mg/dL High 1.0 - 3 .0 mg/dL [facility] IgG [Mass/Vol] 769 mg/dL 700 - 1600 mg/dL [facility] IgG Index, CSF 0.81 High NINF - 0.70 [facility] IgG Synthesis Rate, CSF 18.0 High NINF [facility] Interpretation and review of laboratory results Abnormal [facility] Oligo Bands Oligoclonal bands ar e performed at [facility] using isoelectric focusing and immunofixation. [facility] POC Glucose Fingerstickon Glucose [Mass/Vol] 199 mg/dL High 75 - 110 mg/dL [facility] Interpretation and review of laboratory results Abnormal [facility] Glucose [Mass/Vol] 197 mg/dL High 75 - 110 mg/dL [facility] Interpretation and review of laboratory results Abnormal [facility] Glucose [Mass/Vol] 161 mg/dL High 75 - 110 mg/dL [facility] Interpretation and review of laboratory results Abnormal [facility] Glucose [Mass/Vol] 148 mg/dL High 75 - 110 mg/dL [facility] Interpretation and review of laboratory results Abnormal [facility] PTon 10-04-2024 INR Coag (PPP) [Relative time] 1.1 {INR} Normal [facility] Comment on above: Result Comment: Ther apeutic Range: Moderate Anticoagulant Intensity: INR = 2.0-3.0 High Anticoagulant Intensity: INR = 2.5-3.5 Performed By: #### P TCHIQUI, BMPX ####Search to Phone[address] [place] [phone] lab Director: Ramiro Mark MD PT Coag (PPP) [Time] 13.6 s Normal 11.7-14.9 [facility] Comment on above: Performed By: #### P TCHIQUI, BMPX ####[employer] [address] [place] [address] lab Director: Ramiro Mark MD Protein, CSFon 10-04-2024 Protein (CSF) [Mass/Vol] 78.9 mg/dL High 15.0 - 45.0 mg/dL [facility] Protein, Total, CSFon 2023 Total Protein - CSF 78.9 mg/dL High 15.0-45.0 [facility] Comment on above: Performed By: #### C FCNT, CGLU, MEVP, CTP, CFVD ####[address] [address] Lab Director: Ramiro Mark MD#### AWNCSJohn, ALYMCT ####[facility] [address] [place], [place] [phone] Lab Director: Wil Swanson MD Protime-INRon 10-04-2024 [facility] Surgical Pathology Reporton 10-04-2024 Surgical Pathology Report Normal [facility] B12/Folate Panelon Cobalamin (Vitamin B12) [Mass/Vol] 791 pg/mL Normal 232-1245 [facility] Comment on above: Performed By: #### Bradley HAYWOOD TREP ####[address] [address] lab Director: Ramiro Mark MD#### AVITB1 ####[facility] [address] [place] [address] Lab Director: Wil Swanson MD Folic Acid 11.5 ng/mL Normal 4.8-24.2 [facility] Comment on above: Performed By: #### Bradley HAYWOOD, TREP ####[address] [address] Lab Director: Ramiro Mark MD#### AVITB1 ####[facility] [address] [place] [address] Lab Director: Wil Swanson MD Basic Metab w/rfx MGon 10-03 Anion gap [Moles/Vol] 11 mmol/L Normal 9-16 [facility] Comment on above: Performed By: #### B MPX, TSHX, CDP ####[facility] [address] [place] [address] Lab Director: Ramiro Mark MD Calcium [Mass/Vol] 7.7 mg/dL Low 8.6-10.4 [facility] Comment on above: Performed By: #### B MPX, TSHX, CDP ####[facility] [address] [place], [place] [phone] Director: Ramiro Mark MD Chloride [Moles/Vol] 104 mmol/L Normal 98-107 [facility] Comment on above: Performed By: #### B MPX, TSHX, CDP ####[facility] [address] [place], [place] [phone] Director: Ramiro Mark MD CO2 [Moles/Vol] 20 mmol/L Normal 20-31 [facility] Comment on above: Performed By: #### B MPX, TSHX, CDP ####[facility] [address]rao[address] [place], [place] [phone] Director: Ramiro Mark MD Creatinine [Mass/Vol] 1.9 mg/dL High 0.7-1.2 [facility] Comment on above: Performed By: #### B MPX, TSHX, CDP ####[facility] [address] [place] [address] Lab Director: Ramiro Mark MD GFR/1.73 sq M.predicted among non-blacks MDRD (S/P/Bld) [Vol rate/Area] 42 mL/min/{1.73_m2} Low >60 [facility] Comment on above: Result Comment: Thes [...] By: #### B MPX, TSHX, CDP ####[facility] [address] [place], [place] [address])[phone] Director: Ramiro Mark MD Glucose [Mass/Vol] 170 mg/dL High 74-99 [facility] Comment on above: Performed By: #### B MPX, TSHX, CDP ####[facility] [address] [place], [place] [address])[phone] Director: Ramiro Mark MD Potassium [Moles/Vol] 4.0 mmol/L Normal 3.7-5.3 [facility] Comment on above: Performed By: #### B MPX, TSHX, CDP ####[facility] [address] [place], [place] [address])[phone] Director: Ramiro Mark MD Sodium [Moles/Vol] 135 mmol/L Low 136-145 [facility] Comment on above: Performed By: #### B MPX, TSHX, CDP ####[facility] [address] [place], [place] [address])[phone] Director: Ramiro Mark MD Urea nitrogen [Mass/Vol] 42 mg/dL High 6-20 [facility] Comment on above: Performed By: #### B MPX, TSHX, CDP ####[facility] [address]30[address] [place], [place] [address])[phone] Director: Ramiro Mark MD Basic Metabolic Panel w/ Ref jose to MGon 10-03-2024 Anion gap [Moles/Vol] 11 mmol/L 9 - 16 mmol/L [facility] Calcium [Mass/Vol] 7.7 mg/dL Low 8.6 - 10. 4 mg/dL [facility] Chloride [Moles/Vol] 104 mmol/L 98 - 10 7 mmol/L [facility] CO2 [Moles/Vol] 20 mmol/L 20 - 31 mmol/L [facility] Creatinine [Mass/Vol] 1.9 mg/dL High 0.7 - 1.2 mg/dL [facility] Est, Glom Filt Rate 42 Low - PINF [facility] Glucose [Mass/Vol] 170 mg/dL High 74 - 99 mg/dL [facility] Interpretation and review of laboratory results Abnormal [facility] Potassium [Moles/Vol] 4.0 mmol/L 3.7 - 5.3 mmol/L [facility] Sodium [Moles/Vol] 135 mmol/L Low 136 - 145 mmol/L [facility] Urea nitrogen [Mass/Vol] 42 mg/dL High 6 - 20 mg/dL [facility] CBC with Auto Differentialon 10-03-2024 Basophils (Bld) [#/Vol] 0.05 10*3/uL [facility] Basophils/100 WBC (Bld) 1 % 0 - 2 % [facility] Eosinophils (Bld) [#/Vol] 0.22 10*3/uL [facility] Eosinophils/100 WBC (Bld) 3 % 1 - 4 % [facility] Erythrocyte distribution width (RBC) [Ratio] 13.0 % 11.8 - 14.4 % [facility] Hematocrit (Bld) [Volume fraction] 26.8 % Low 40.7 - 50.3 % [facility] Hemoglobin (Bld) [Mass/Vol] 8.8 g/dL Low 13.0 - 17.0 g/dL [facility] Immature granulocytes (Bld) [#/Vol] 0.04 10*3/uL [facility] Immature granulocytes/100 WBC (Bld) 1 % High 0 [facility] Interpretation and review of laboratory results Abnormal [facility] Lymphocytes/100 WBC (Bld) 15 % Low 24 - 43 % [facility] Lymphocytes/100 WBC (Bld) 1.24 % [facility] MCH (RBC) [Entitic mass] 28.4 pg 25.2 - 33.5 pg [facility] MCHC (RBC) [Mass/Vol] 32.8 g/dL 28.4 - 34.8 g/dL [facility] MCV (RBC) [Entitic vol] 86.5 fL 82.6 - 102.9 fL [facility] Monocytes/100 WBC (Bld) 8 % 3 - 12 % [facility] Monocytes/100 WBC (Bld) 0.71 % [facility] Neutrophils/100 WBC (Bld) 72 % High 36 - 65 % [facility] Nucleated RBC/100 WBC (Bld) [Ratio] 0.0 % 0.0 per 100 WBC [facility] Platelet mean volume (Bld) [Entitic vol] 10.5 fL 8.1 - 13.5 fL [facility] Platelets (Bld) [#/Vol] 193 10*3/uL [facility] RBC (Bld) [#/Vol] 3.10 10*6/uL Low 4.21 - 5.7 7 m/uL [facility] Segmented neutrophils/100 WBC (Bld) 6.32 % [facility] WBC other (Bld) [#/Vol] 8.6 [facility] CBC with Diffon 10-03-2024 Abs. Basophil 0.05 k/uL Normal 0.00-0.20 [facility] Comment on above: Performed By: #### B MPX, TSHX, CDP ####[facility] [address] [place] [address] Lab Director: Ramiro Mark MD Abs.Imm.Granulocyte 0.04 k/uL Normal 0.00-0.30 [facility] Comment on above: Performed By: #### B MPX, TSHX, CDP ####[facility] [address]ccb[address] [place] [address] Lab Director: Ramiro Mark MD Abs.Neutrophil (Seg) 6.32 k/uL Normal 1.50-8.10 [facility] Comment on above: Performed By: #### B MPX, TSHX, CDP ####[facility] [address]ps[address] [place] [address] Lab Director: Ramiro Mark MD Basophils/100 WBC (Bld) 1 % Normal 0-2 [facility] Comment on above: Performed By: #### B MPX, TSHX, CDP ####[facility] [address] [place] [address] [phone] Director: Ramiro Mark MD Eosinophils (Bld) [#/Vol] 0.22 10*3/uL Normal 0.00-0.44 [facility] Comment on above: Performed By: #### B MPX, TSHX, CDP ####[facility] [address] [place] [address] [phone] Director: Ramiro Mark MD Eosinophils/100 WBC (Bld) 3 % Normal 1-4 [facility] Comment on above: Performed By: #### B MPX, TSHX, CDP ####[place], [place] [address])[phone] Director: Ramiro Mark MD Erythrocyte distribution width (RBC) [Ratio] 13.0 % Normal 11.8-14.4 [facility] Comment on above: Performed By: #### B MPX, TSHX, CDP ####[facility] [address] [place] [address])[phone] Director: Ramiro Mark MD Hematocrit (Bld) [Volume fraction] 26.8 % Low 40.7-50.3 [facility] Comment on above: Performed By: #### B MPX, TSHX, CDP ####[facility] [address]es[address] [place], [place] [address])[phone] Director: Ramiro Mark MD Hemoglobin (Bld) [Mass/Vol] 8.8 g/dL Low 13.0-17.0 [facility] Comment on above: Performed By: #### B MPX, TSHX, CDP ####[facility] [address]krpekl[address] [place], [place] [phone] Director: Ramiro Mark MD Immature granulocytes/100 WBC (Bld) 1 % High 0 [facility] Comment on above: Performed By: #### B MPX, TSHX, CDP ####[facility] [address] [place] [address] [phone] Director: Ramiro Mark MD Lymphocytes (Bld) [#/Vol] 1.24 10*3/uL Normal 1.10-3.70 [facility] Comment on above: Performed By: #### B MPX, TSHX, CDP ####[facility] [address] [place] [address])[phone] Director: Ramiro Mark MD Lymphocytes/100 WBC (Bld) 15 % Low 24-43 [facility] Comment on above: Performed By: #### B MPX, TSHX, CDP ####[facility] [address] [place], [place] [address])[phone] Director: Ramiro Mark MD MCH (RBC) [Entitic mass] 28.4 pg Normal 25.2-33.5 [facility] Comment on above: Performed By: #### B MPX, TSHX, CDP ####[facility] [address] [place], [place] [phone] Director: Ramiro Mark MD MCHC (RBC) [Mass/Vol] 32.8 g/dL Normal 28.4-34.8 [facility] Comment on above: Performed By: #### B MPX, TSHX, CDP ####[facility] [address]zlftz[address]21 [place], [place] [phone] Director: Ramiro Mark MD MCV (RBC) [Entitic vol] 86.5 fL Normal 82.6-102.9 [facility] Comment on above: Performed By: #### B MPX, TSHX, CDP ####[facility] Bwry[address]zsx0958 [place], [place] [phone] Director: Ramiro Mark MD Monocytes (Bld) [#/Vol] 0.71 10*3/uL Normal 0.10-1.20 [facility] Comment on above: Performed By: #### B MPX, TSHX, CDP ####[facility] [address]3351 [place] [address] Lab Director: Ramiro Mark MD Monocytes/100 WBC (Bld) 8 % Normal 3-12 [facility] Comment on above: Performed By: #### B MPX, TSHX, CDP ####[facility] [address] [place] [address] Lab Director: Ramiro Mark MD Neutrophil (Seg) 72 % High 36-65 [facility] Comment on above: Performed By: #### B MPX, TSHX, CDP ####[address] [phone] Director: Ramiro Mark MD NRBC Automated 0.0 per 100 WBC Normal 0.0 [facility] Comment on above: Performed By: #### B MPX, TSHX, CDP ####[facility] [address] [place] [address] Lab Director: Ramiro Mark MD Platelet mean volume (Bld) [Entitic vol] 10.5 fL Normal 8.1-13.5 [facility] Comment on above: Performed By: #### B MPX, TSHX, CDP ####[facility] Wnabcmonyzmn4948 [place] [address] Lab Director: Ramiro Mark MD Platelets (Bld) [#/Vol] 193 10*3/uL Normal 138-453 [facility] Comment on above: Performed By: #### B MPX, TSHX, CDP ####[facility] [address]zu[address]seyt5573 [place] [address] Lab Director: Ramiro Mark MD RBC (Bld) [#/Vol] 3.10 10*6/uL Low 4.21-5.77 [facility] Comment on above: Performed By: #### B MPX, TSHX, CDP ####[facility] Avswczupngiq6948 [place], [place] [phone] lab Director: Ramiro Mark MD WBC (Bld) [#/Vol] 8.6 10*3/uL Normal 3.5-11.3 [facility] Comment on above: Performed By: #### B MPX, TSHX, CDP ####[facility] [address]peyknf3464 [place] [address] lab Director: Ramiro Mark MD Cult, Bloodon 10-03-2024 Cult, Blood Specimen Description .BLOOD Special Requests 20ML RIGHT WRIST Culture NO GROWTH 5 DAYS Report Status FINAL 10/03/2024 Normal [facility] Comment on above: Performed By: #### L ACTIC #### [facility] [address] [place] [address] Custom Clothier: Ramiro Santillan MD Glucose,Whole Bloodon 2023 Glucose [Mass/Vol] 190 mg/dL High 75-110 [facility] Glucose [Mass/Vol] 163 mg/dL High 75-110 [facility] Glucose [Mass/Vol] 88 mg/dL Normal 75-110 [facility] Glucose [Mass/Vol] 133 mg/dL High 75-110 [facility] No Panel Informationon 10-03 ePrep Nuclear stress test with marcio cardial perfusionOrdered By: Ludmila Rushing on 10-03-2024 Baseline Diastolic BP 110 mmHg [employer] Phone: Baseline HR 76 BPM [employer] Phone: Baseline Systolic BP 183 mmHg [employer] Phone: Body surface area Derived from formula 2 m2 [employer] Phone: Stress Diastolic BP 110 mmHg [employer] Work Phone: Stress Estimated Workload 1.0 METS Sharon [employer] Work Phone: Stress Peak HR 83 BPM Sharon Bernabe s [employer] Work Phone: Stress Percent HR Achieved 49 % Sharon Gallego [employer] Work Phone: Stress Rate Pressure Product 50167 BPM*mmHg Sharon [employer] Work Phone: Stress Systolic BP 183 mmHg Sharon Se cours [employer] Work Phone: Stress Target HR 170 bpm Sharon Venturao urs [employer] Work Phone: Sharon [facility] Work Phone: Nuclear stress test with marcio cardial perfusionon 10-03-2024 [facility] CV RPACS STRESS [facility] CV RPACS STRESS Radiology Study observation (narrative) ePrep POC Glucose Fingerstickon Glucose [Mass/Vol] 190 mg/dL High 75 - 110 mg/dL [facility] Interpretation and review of laboratory results Abnormal [facility] Glucose [Mass/Vol] 163 mg/dL High 75 - 110 mg/dL [facility] Interpretation and review of laboratory results Abnormal [facility] Glucose [Mass/Vol] 88 mg/dL 75 - 110 mg/dL [facility] Glucose [Mass/Vol] 133 mg/dL High 75 - 110 mg/dL [facility] Interpretation and review of laboratory results Abnormal [facility] [employer] [facility] T. PALLIDUM ABon 10-03-2024 T. pallidum Ab IA Ql (S) Non-Reactive NONREACTIVE [facility] [employer] T.pallidum Ab Screenon 10-03 T.pallidum Ab Screen Non-Reactive Normal NR Me [facility] Comment on above: Result Comment: T. p allidum antibodies are not detected.There is no serological evidence of infection with T. pallidum (early primary syphilis cannot be excluded). Retest in 2-4 weeks if syphilis is clinically suspect. Performed By: #### B 12FOL, TREP ####[facility] [address] [place], [place] [phone] lab Director: Ramiro Mark MD#### AVITB1 ####[facility] [address] [place], [place] [phone] lab Director: Wil Swanson MD TSH reflex to FT4on 10-03-20 TSH Qn 1.19 m[IU]/L [facility] TSH w/reflex to FT4on 2023 Thyroid Stim. Horm. 1.19 uIU/mL Normal 0.27-4.20 [facility] Comment on above: Performed By: #### B MPX, TSHX, CDP ####[facility] [address] [place] [address] lab Director: Ramiro Mark MD Vitamin B12 & Folateon 10-031 Cobalamin (Vitamin B12) [Mass/Vol] 791 pg/mL 232 - 1245 pg/mL [facility] Folate [Mass/Vol] 11.5 ng/mL 4.8 - 24.2 ng/mL [facility] CLAUDIO Screen w/reflexon 2023 CLAUDIO Screen Negative Normal NEG [facility] Comment on above: Performed By: #### P HEP, BMP, ANAX, PE, FKLLC, CHELO, MG ####[facility] [address] [place] [address] [phone] lab Director: Ramiro Mark MD Anti-dsDNA 0.6 IU/mL Normal <10.0 [facility] Comment on above: Result Comment: Refe rence Range:<10.0 Eefoagon00.0-15.0 Equivocal>15.0 Positive Performed By: #### P HEP, BMP, ANAX, PE, FKLLC, CHELO, MG ####[facility] [address] [place] [address] [phone] Lab Director: Ramiro Mark MD KIM Screen 0.2 U/mL Normal <0.7 [facility] Comment on above: Result Comment: Refe rence Range:<0.7 Negative0.7-1.0 Equivocal>1.0 PositiveENA Screen includes U1RNP,RNP70,Sm,Ro(SS-A),La(SS-B),CENP,Scl-70,Debbi-1 Performed By: #### P HEP, BMP, ANAX, PE, FKLLC, CHELO, MG ####[employer] [address] [place] [address] lab Director: Ramiro Mark MD CLAUDIO Screen with Reflexon DNA double strand IgG IA Ql (S) 0.6 NINF [facility] Nuclear Ab IA Ql (S) Negative NEGATIVE [facility] Nuclear IgG IA (S) [Ratio] 0.2 U/mL NINF - 0.7 U/mL [facility] Basic Metab w/rfx MGon 10-021 Anion gap [Moles/Vol] 9 mmol/L Normal 9-16 [facility] Comment on above: Performed By: #### B MPX, CDP ####[facility] Ejzwpnktucmp6643 [place] [address] Lab Director: Ramiro Mark MD Calcium [Mass/Vol] 8.0 mg/dL Low 8.6-10.4 [facility] Comment on above: Performed By: #### B MPX, CDP ####[facility] Qns[address]injrrwc7141 [place] [address] Lab Director: Ramiro Mark MD Chloride [Moles/Vol] 110 mmol/L High 98-107 [facility] Comment on above: Performed By: #### B MPX, CDP ####[facility] F[address]arntkq2907 [place] [address] Lab Director: Ramiro Mark MD CO2 [Moles/Vol] 22 mmol/L Normal 20-31 [facility] Comment on above: Performed By: #### B MPX, CDP ####[facility] [address]vt0143 [place] [address] Lab Director: Ramiro Mark MD Creatinine [Mass/Vol] 2.1 mg/dL High 0.7-1.2 [facility] Comment on above: Performed By: #### B MPX, CDP ####[facility] [address] [place] [address] [phone] Director: Ramiro Mark MD GFR/1.73 sq M.predicted among non-blacks MDRD (S/P/Bld) [Vol rate/Area] 38 mL/min/{1.73_m2} Low >60 [facility] Comment on above: Result Comment: Thes [...] secretion. Performed By: #### B MPX, CDP ####[facility] [address] [place] [address] [phone] Director: Ramiro Mark MD Glucose [Mass/Vol] 80 mg/dL Normal 74-99 [facility] Comment on above: Performed By: #### B MPX, CDP ####[facility] [address]icwml6[address] [place], [place] [phone] Director: Ramiro Mark MD Potassium [Moles/Vol] 3.8 mmol/L Normal 3.7-5.3 [facility] Comment on above: Performed By: #### B MPX, CDP ####[facility] [address] [place], [place] [phone] Director: Ramiro Mark MD Sodium [Moles/Vol] 141 mmol/L Normal 136-145 [facility] Comment on above: Performed By: #### B MPX, CDP ####[facility] [address] [place], [place] [phone] lab Director: Ramiro Mark MD Urea nitrogen [Mass/Vol] 41 mg/dL High 6-20 [facility] Comment on above: Performed By: #### B MPX, CDP ####[facility] [address] [place], [place] [phone] lab Director: Ramiro Mark MD Basic Metabolic Panel w/ Ref jose to MGon 10-02-2024 Anion gap [Moles/Vol] 9 mmol/L 9 - 16 mmol/L [facility] Calcium [Mass/Vol] 8.0 mg/dL Low 8.6 - 10. 4 mg/dL [facility] Chloride [Moles/Vol] 110 mmol/L High 98 - 10 7 mmol/L [facility] CO2 [Moles/Vol] 22 mmol/L 20 - 31 mmol/L [facility] Creatinine [Mass/Vol] 2.1 mg/dL High 0.7 - 1.2 mg/dL [facility] Est, Glom Filt Rate 38 Low - PINF [facility] Glucose [Mass/Vol] 80 mg/dL 74 - 99 mg/dL [facility] Interpretation and review of laboratory results Abnormal [facility] Potassium [Moles/Vol] 3.8 mmol/L 3.7 - 5.3 mmol/L [facility] Sodium [Moles/Vol] 141 mmol/L 136 - 145 mmol/L [facility] Urea nitrogen [Mass/Vol] 41 mg/dL High 6 - 20 mg/dL [facility] CBC with Auto Differentialon 10-02-2024 Basophils (Bld) [#/Vol] [facility] Basophils/100 WBC (Bld) 0 % 0 - 2 % [facility] Eosinophils (Bld) [#/Vol] 0.12 10*3/uL [facility] Eosinophils/100 WBC (Bld) 2 % 1 - 4 % [facility] Erythrocyte distribution width (RBC) [Ratio] 13.4 % 11.8 - 14.4 % [facility] Hematocrit (Bld) [Volume fraction] 25.8 % Low 40.7 - 50.3 % [facility] Hemoglobin (Bld) [Mass/Vol] 8.4 g/dL Low 13.0 - 17.0 g/dL [facility] Immature granulocytes (Bld) [#/Vol] 0.03 10*3/uL [facility] Immature granulocytes/100 WBC (Bld) 0 % 0 [facility] Interpretation and review of laboratory results Abnormal [facility] Lymphocytes/100 WBC (Bld) 10 % Low 24 - 43 % [facility] Lymphocytes/100 WBC (Bld) 0.79 % Low [facility] MCH (RBC) [Entitic mass] 28.6 pg 25.2 - 33.5 pg [facility] MCHC (RBC) [Mass/Vol] 32.6 g/dL 28.4 - 34.8 g/dL [facility] MCV (RBC) [Entitic vol] 87.8 fL 82.6 - 102.9 fL [facility] Monocytes/100 WBC (Bld) 9 % 3 - 12 % [facility] Monocytes/100 WBC (Bld) 0.70 % [facility] Neutrophils/100 WBC (Bld) 79 % High 36 - 65 % [facility] Nucleated RBC/100 WBC (Bld) [Ratio] 0.0 % 0.0 per 100 WBC [facility] Platelet mean volume (Bld) [Entitic vol] 10.6 fL 8.1 - 13.5 fL [facility] Platelets (Bld) [#/Vol] 180 10*3/uL [facility] RBC (Bld) [#/Vol] 2.94 10*6/uL Low 4.21 - 5.7 7 m/uL [facility] Segmented neutrophils/100 WBC (Bld) 6.31 % [facility] WBC other (Bld) [#/Vol] 8.0 [facility] CBC with Diffon 10-02-2024 Abs. Basophil <0.03 Normal 0.00-0.20 [facility] Comment on above: Performed By: #### B MPX, CDP ####[facility] [address] [place], [place] [address])[phone] Director: Ramiro Mark MD Abs.Imm.Granulocyte 0.03 k/uL Normal 0.00-0.30 [facility] Comment on above: Performed By: #### B MPX, CDP ####[facility] Q[address]xcavg1715 [place], [place] [address])[phone] Director: Ramiro Mark MD Abs.Neutrophil (Seg) 6.31 k/uL Normal 1.50-8.10 [facility] Comment on above: Performed By: #### B MPX, CDP ####[facility] [address] [place] [address])[phone] Director: Ramiro Mark MD Basophils/100 WBC (Bld) 0 % Normal 0-2 [facility] Comment on above: Performed By: #### B MPX, CDP ####[facility] [address] [place] [address])[phone] Director: Ramiro Mark MD Eosinophils (Bld) [#/Vol] 0.12 10*3/uL Normal 0.00-0.44 [facility] Comment on above: Performed By: #### B MPX, CDP ####[facility] Ez[address]wx3880 [place], [place] [address])[phone] Director: Ramiro Mark MD Eosinophils/100 WBC (Bld) 2 % Normal 1-4 [facility] Comment on above: Performed By: #### B MPX, CDP ####[facility] R[address]xs[address]pttlp6628 [place], [place] [address])[phone] Director: Ramiro Mark MD Erythrocyte distribution width (RBC) [Ratio] 13.4 % Normal 11.8-14.4 [facility] Comment on above: Performed By: #### B MPX, CDP ####[place], [place] [address])[phone] Director: Ramiro Mark MD Hematocrit (Bld) [Volume fraction] 25.8 % Low 40.7-50.3 [facility] Comment on above: Performed By: #### B MPX, CDP ####[place], [place] [address])[phone] Director: Ramiro Mark MD Hemoglobin (Bld) [Mass/Vol] 8.4 g/dL Low 13.0-17.0 [facility] Comment on above: Performed By: #### B MPX, CDP ####[place], [place] [address])[phone] Director: Ramiro Mark MD Immature granulocytes/100 WBC (Bld) 0 % Normal 0 [facility] Comment on above: Performed By: #### B MPX, CDP ####[address] [address])[phone] Director: Ramiro Mark MD Lymphocytes (Bld) [#/Vol] 0.79 10*3/uL Low 1.10-3.70 [facility] Comment on above: Performed By: #### B MPX, CDP ####[address] [address])[phone] Director: Ramiro Mark MD Lymphocytes/100 WBC (Bld) 10 % Low 24-43 [facility] Comment on above: Performed By: #### B MPX, CDP ####[address] [address])[phone] Director: Ramiro Mark MD MCH (RBC) [Entitic mass] 28.6 pg Normal 25.2-33.5 [facility] Comment on above: Performed By: #### B MPX, CDP ####[facility] [address] [place], [place] [phone] Director: Ramiro Mark MD MCHC (RBC) [Mass/Vol] 32.6 g/dL Normal 28.4-34.8 [facility] Comment on above: Performed By: #### B MPX, CDP ####[facility] Ubdqkmnmuctk8246 [place], [place] [phone] Director: Ramiro Mark MD MCV (RBC) [Entitic vol] 87.8 fL Normal 82.6-102.9 [facility] Comment on above: Performed By: #### B MPX, CDP ####[facility] A[address]oy[address]gqklg8072 [place], [place] [phone] Director: Ramiro Mark MD Monocytes (Bld) [#/Vol] 0.70 10*3/uL Normal 0.10-1.20 [facility] Comment on above: Performed By: #### B MPX, CDP ####[facility] [address] [place] [address] [phone] Director: Ramiro Mark MD Monocytes/100 WBC (Bld) 9 % Normal 3-12 [facility] Comment on above: Performed By: #### B MPX, CDP ####[facility] [address] [place] [address] [phone] Director: Ramiro Mark MD Neutrophil (Seg) 79 % High 36-65 [facility] Comment on above: Performed By: #### B MPX, CDP ####[facility] Xon[address]mhfauw8820 [place], [place] [phone] Director: Ramiro Mark MD NRBC Automated 0.0 per 100 WBC Normal 0.0 [facility] Comment on above: Performed By: #### B MPX, CDP ####[facility] Noluwcpvtbaz20[address] [place], [place] [phone] Lab Director: Ramiro Mark MD Platelet mean volume (Bld) [Entitic vol] 10.6 fL Normal 8.1-13.5 [facility] Comment on above: Performed By: #### B MPX, CDP ####[facility] [address]hbxf5841 [place] [address] Lab Director: Ramiro Mark MD Platelets (Bld) [#/Vol] 180 10*3/uL Normal 138-453 [facility] Comment on above: Performed By: #### B MPX, CDP ####[facility] [address]8673 [place] [address] Lab Director: Ramiro Mark MD RBC (Bld) [#/Vol] 2.94 10*6/uL Low 4.21-5.77 [facility] Comment on above: Performed By: #### B MPX, CDP ####[facility] Xeblpnxiuesj0333 [place] [address] Lab Director: Ramiro Mark MD WBC (Bld) [#/Vol] 8.0 10*3/uL Normal 3.5-11.3 [facility] Comment on above: Performed By: #### B MPX, CDP ####[facility] [address]qpus1745 [place] [address] Lab Director: Ramiro Mark MD Glucose,Whole Bloodon 2023 Glucose [Mass/Vol] 224 mg/dL High 75-110 [facility] Glucose [Mass/Vol] 219 mg/dL High 75-110 [facility] Glucose [Mass/Vol] 211 mg/dL High 75-110 [facility] Glucose [Mass/Vol] 175 mg/dL High 75-110 [facility] Glucose [Mass/Vol] 81 mg/dL Normal 75-110 [facility] POC Glucose Fingerstickon Glucose [Mass/Vol] 224 mg/dL High 75 - 110 mg/dL [facility] Interpretation and review of laboratory results Abnormal [facility] Glucose [Mass/Vol] 219 mg/dL High 75 - 110 mg/dL [facility] Interpretation and review of laboratory results Abnormal [facility] Glucose [Mass/Vol] 211 mg/dL High 75 - 110 mg/dL [facility] Interpretation and review of laboratory results Abnormal [facility] Glucose [Mass/Vol] 175 mg/dL High 75 - 110 mg/dL [facility] Interpretation and review of laboratory results Abnormal [facility] Glucose [Mass/Vol] 81 mg/dL 75 - 110 mg/dL [facility] Prot. Electrophoresis, Uron 10-02-2024 Pathologist Review: ELECTRONICALLY ALEX LACY M.D. Normal [facility] Comment on above: Performed By: #### U PE, URTPRT, URNA, URCL ####[facility] [address] [place], [place] [id number] Lab Director: Ramiro Mark MD Ur.-Prot.Elect-Inter Elevated protein concentration. Most serum proteins are detected in Normal [facility] Comment on above: Result Comment: this urine. Usually observed with markedly increased nonselectiveglomerular permaeabilty (severe glomerular disease) and/orcontamination of urine with blood. A decrease in tubular functioncannot be ruled out. Performed By: #### U PE, URTPRT, URNA, URCL ####[facility] [address] [place], [place] [phone] Lab Director: Ramiro Mark MD Protein Electrophoresis, Uri neon 10-02-2024 P E Interpretation, U Elevated protein concentration. Most serum proteins are detected in [facility] Pathologist ELECTRONICALLY ALEX LACY M.D. [facility] Protein (U) [Mass/Vol] 100 mg/dL [facility] Specimen type Nom (Spec) .URINE [facility] Arterial Bld Gas,POCon 10-01 FIO2 30.0 Normal [facility] HCO3 (Bld) [Moles/Vol] 25.1 mmol/L Normal 21.0-28.[address] [facility] O2 Device Adult Ventilator Normal [facility] Oxygen saturation in Blood 99.4 % High 94.0-98.0 [facility] pCO2, Arterial 33.7 mm Hg Low 35.0-48.0 [facility] pH, Arterial 7.480 High 7.350-7.450 [facility] pO2, Arterial 143.0 mm Hg High 83.0-108.0 [facility] Positive Base Excess (calc) 1.5 mmol/L Normal 0.0-3.0 [facility] Site Drawn Right Radial Artery Normal [facility] Arterial Blood Gas, POCon FIO2 30.0 [facility] HCO3 (Bld) [Moles/Vol] 25.1 mmol/L 21.0 - 28.0 mmol/L [facility] O2 Delivery Device Adult Ventilator Bon [facility] Oxygen saturation in Blood 99.4 % High 94.0 - 98.0 % [facility] POC pCO2 33.7 Low [facility] POC pH 7.480 High 7.350 - 7.450 [facility] POC PO2 143.0 High [facility] Positive Base Excess, Art 1.5 mmol/L 0.0 - 3.0 mmol/L [facility] Sample Site Right Radial Artery [facility] Basic Metab w/rfx MGon 10-01 Anion gap [Moles/Vol] 8 mmol/L Low 9-16 [facility] Comment on above: Performed By: #### B MPX, LIPR, CDP ####[facility] [address]48 [place] [address] [facility] Director: Ramiro Mark MD Calcium [Mass/Vol] 8.1 mg/dL Low 8.6-10.4 [facility] Comment on above: Performed By: #### B MPX, LIPR, CDP ####[facility] [address] [place] [address] Lab Director: Ramiro Mark MD Chloride [Moles/Vol] 108 mmol/L High 98-107 [facility] Comment on above: Performed By: #### B MPX, LIPR, CDP ####[facility] [address]mu[address]4648 [place], [place] [phone] Director: Ramiro Mark MD CO2 [Moles/Vol] 23 mmol/L Normal 20-31 [facility] Comment on above: Performed By: #### B MPX, LIPR, CDP ####[facility] [address]td[address]4187 [place], [place] [phone] Director: Ramiro Mark MD Creatinine [Mass/Vol] 2.3 mg/dL High 0.7-1.2 [facility] Comment on above: Performed By: #### B MPX, LIPR, CDP ####[facility] [address]vpbyt3200 [place] [address] Lab Director: Ramiro Mark MD GFR/1.73 sq M.predicted among non-blacks MDRD (S/P/Bld) [Vol rate/Area] 34 mL/min/{1.73_m2} Low >60 [facility] Comment on above: Result Comment: Thes [...] By: #### B MPX, LIPR, CDP ####[facility] [address] [place] [address] Lab Director: Ramiro Mark MD Glucose [Mass/Vol] 180 mg/dL High 74-99 [facility] Comment on above: Performed By: #### B MPX, LIPR, CDP ####[facility] [address]68[address] [place] [id number] Lab Director: Ramiro Mark MD Potassium [Moles/Vol] 4.0 mmol/L Normal 3.7-5.3 [facility] Comment on above: Performed By: #### B MPX, LIPR, CDP ####[facility] [address] [place] [address] Lab Director: Ramiro Mark MD Sodium [Moles/Vol] 139 mmol/L Normal 136-145 [facility] Comment on above: Performed By: #### B MPX, LIPR, CDP ####[facility] [address]9238 [place] [address] Lab Director: Ramiro Mark MD Urea nitrogen [Mass/Vol] 46 mg/dL High 6-20 [facility] Comment on above: Performed By: #### B MPX, LIPR, CDP ####[facility] [address]3877 [place] [address] Lab Director: Ramiro Mark MD Basic Metabolic Panel w/ Ref jose to MGon 10-01-2024 Anion gap [Moles/Vol] 8 mmol/L Low 9 - 16 mmol/L [facility] Calcium [Mass/Vol] 8.1 mg/dL Low 8.6 - 10. 4 mg/dL [facility] Chloride [Moles/Vol] 108 mmol/L High 98 - 10 7 mmol/L [facility] CO2 [Moles/Vol] 23 mmol/L 20 - 31 mmol/L [facility] Creatinine [Mass/Vol] 2.3 mg/dL High 0.7 - 1.2 mg/dL [facility] Est, Glom Filt Rate 34 Low - PINF [facility] Glucose [Mass/Vol] 180 mg/dL High 74 - 99 mg/dL [facility] Interpretation and review of laboratory results Abnormal [facility] Potassium [Moles/Vol] 4.0 mmol/L 3.7 - 5.3 mmol/L [facility] Sodium [Moles/Vol] 139 mmol/L 136 - 145 mmol/L [facility] Urea nitrogen [Mass/Vol] 46 mg/dL High 6 - 20 mg/dL [facility] CBC with Auto Differentialon 10-01-2024 Basophils (Bld) [#/Vol] 0.03 10*3/uL [facility] Basophils/100 WBC (Bld) 0 % 0 - 2 % [facility] Eosinophils (Bld) [#/Vol] 0.15 10*3/uL [facility] Eosinophils/100 WBC (Bld) 2 % 1 - 4 % [facility] Erythrocyte distribution width (RBC) [Ratio] 13.3 % 11.8 - 14.4 % [facility] Hematocrit (Bld) [Volume fraction] 26.0 % Low 40.7 - 50.3 % [facility] Hemoglobin (Bld) [Mass/Vol] 8.3 g/dL Low 13.0 - 17.0 g/dL [facility] Immature granulocytes (Bld) [#/Vol] 0.03 10*3/uL [facility] Immature granulocytes/100 WBC (Bld) 0 % 0 [facility] Interpretation and review of laboratory results Abnormal [facility] Lymphocytes/100 WBC (Bld) 16 % Low 24 - 43 % [facility] Lymphocytes/100 WBC (Bld) 1.14 % [facility] MCH (RBC) [Entitic mass] 28.7 pg 25.2 - 33.5 pg [facility] MCHC (RBC) [Mass/Vol] 31.9 g/dL 28.4 - 34.8 g/dL [facility] MCV (RBC) [Entitic vol] 90.0 fL 82.6 - 102.9 fL [facility] Monocytes/100 WBC (Bld) 8 % 3 - 12 % [facility] Monocytes/100 WBC (Bld) 0.58 % [facility] Neutrophils/100 WBC (Bld) 74 % High 36 - 65 % [facility] Nucleated RBC/100 WBC (Bld) [Ratio] 0.0 % 0.0 per 100 WBC [facility] Platelet mean volume (Bld) [Entitic vol] 10.9 fL 8.1 - 13.5 fL [facility] Platelets (Bld) [#/Vol] 180 10*3/uL [facility] RBC (Bld) [#/Vol] 2.89 10*6/uL Low 4.21 - 5.7 7 m/uL [facility] Segmented neutrophils/100 WBC (Bld) 5.40 % [facility] WBC other (Bld) [#/Vol] 7.3 [facility] CBC with Diffon 10-01-2024 Abs. Basophil 0.03 k/uL Normal 0.00-0.20 [facility] Comment on above: Performed By: #### B MPX, LIPR, CDP ####[facility] [address] [place], [place] [address])[phone] Director: Ramiro Mark MD Abs.Imm.Granulocyte 0.03 k/uL Normal 0.00-0.30 [facility] Comment on above: Performed By: #### B MPX, LIPR, CDP ####[facility] [address] [place] [address] Lab Director: Ramiro Mark MD Abs.Neutrophil (Seg) 5.40 k/uL Normal 1.50-8.10 [facility] Comment on above: Performed By: #### B MPX, LIPR, CDP ####[facility] [address] [place] [address] Lab Director: Ramiro Mark MD Basophils/100 WBC (Bld) 0 % Normal 0-2 [facility] Comment on above: Performed By: #### B MPX, LIPR, CDP ####[facility] [address] [place], [place] [address])[phone] Director: Ramiro Mark MD Eosinophils (Bld) [#/Vol] 0.15 10*3/uL Normal 0.00-0.44 [facility] Comment on above: Performed By: #### B MPX, LIPR, CDP ####[facility] [address] [place] [address] [phone] Director: Ramiro Mark MD Eosinophils/100 WBC (Bld) 2 % Normal 1-4 [facility] Comment on above: Performed By: #### B MPX, LIPR, CDP ####[facility] [address] [place] [address])[phone] Director: Ramiro Mark MD Erythrocyte distribution width (RBC) [Ratio] 13.3 % Normal 11.8-14.4 [facility] Comment on above: Performed By: #### B MPX, LIPR, CDP ####[facility] [address] [place], [place] [address])[phone] Director: Ramiro Mark MD Hematocrit (Bld) [Volume fraction] 26.0 % Low 40.7-50.3 [facility] Comment on above: Performed By: #### B MPX, LIPR, CDP ####[facility] [address] [place] [address])[phone] Director: Ramiro Mark MD Hemoglobin (Bld) [Mass/Vol] 8.3 g/dL Low 13.0-17.0 [facility] Comment on above: Performed By: #### B MPX, LIPR, CDP ####[facility] [address] [place], [place] [phone] Director: Ramiro Mark MD Immature granulocytes/100 WBC (Bld) 0 % Normal 0 [facility] Comment on above: Performed By: #### B MPX, LIPR, CDP ####[facility] [address] [place] [address])[phone] Director: Ramiro Mark MD Lymphocytes (Bld) [#/Vol] 1.14 10*3/uL Normal 1.10-3.70 [facility] Comment on above: Performed By: #### B MPX, LIPR, CDP ####[facility] [address] [place] [address] [phone] Director: Ramiro Mark MD Lymphocytes/100 WBC (Bld) 16 % Low 24-43 [facility] Comment on above: Performed By: #### B MPX, LIPR, CDP ####[facility] [address] [place] [address])[phone] Director: Ramiro Mark MD MCH (RBC) [Entitic mass] 28.7 pg Normal 25.2-33.5 [facility] Comment on above: Performed By: #### B MPX, LIPR, CDP ####[facility] [address] [place], [place] [address])[phone] Director: Ramiro Mark MD MCHC (RBC) [Mass/Vol] 31.9 g/dL Normal 28.4-34.8 [facility] Comment on above: Performed By: #### B MPX, LIPR, CDP ####[facility] [address] [place] [address] [phone] Director: Ramiro Mark MD MCV (RBC) [Entitic vol] 90.0 fL Normal 82.6-102.9 [facility] Comment on above: Performed By: #### B MPX, LIPR, CDP ####[facility] [address] [place], [place] [phone] Director: Ramiro Mark MD Monocytes (Bld) [#/Vol] 0.58 10*3/uL Normal 0.10-1.20 [facility] Comment on above: Performed By: #### B MPX, LIPR, CDP ####[facility] [address] [place], [place] [phone] Director: Ramiro Mark MD Monocytes/100 WBC (Bld) 8 % Normal 3-12 [facility] Comment on above: Performed By: #### B MPX, LIPR, CDP ####[facility] [address]cvl[address]22 [place] [address] Lab Director: Ramiro Mark MD Neutrophil (Seg) 74 % High 36-65 [facility] Comment on above: Performed By: #### B MPX, LIPR, CDP ####[facility] [address]hlwe5239 [place] [address] Lab Director: Ramiro Mark MD NRBC Automated 0.0 per 100 WBC Normal 0.0 [facility] Comment on above: Performed By: #### B MPX, LIPR, CDP ####[facility] [address] [place] [address] Lab Director: Ramiro Mark MD Platelet mean volume (Bld) [Entitic vol] 10.9 fL Normal 8.1-13.5 [facility] Comment on above: Performed By: #### B MPX, LIPR, CDP ####[facility] [address]ke75[address] [place] [address] Lab Director: Ramiro Mark MD Platelets (Bld) [#/Vol] 180 10*3/uL Normal 138-453 [facility] Comment on above: Performed By: #### B MPX, LIPR, CDP ####[facility] [address]48[address] [place] [address] Lab Director: Ramiro Mark MD RBC (Bld) [#/Vol] 2.89 10*6/uL Low 4.21-5.77 [facility] Comment on above: Performed By: #### B MPX, LIPR, CDP ####[facility] [address]om[address] [place] [address] Lab Director: Ramiro Mark MD WBC (Bld) [#/Vol] 7.3 10*3/uL Normal 3.5-11.3 [facility] Comment on above: Performed By: #### B MPX, LIPR, CDP ####[facility] [address] [place], [place] [id number] Lab Director: Ramiro Mark MD Calcium, Ionicon 10-01-2024 Calcium [Moles/Vol] 1.13 mmol/L Normal 1.13-1.33 [facility] Comment on above: Performed By: #### I OCAL ####[facility] [address] [place], [place] [phone] Lab Director: Ramiro Mark MD Calcium, Ionizedon Calcium.ionized (Bld) [Moles/Vol] 1.13 mmol/L 1.13 - 1.33 mmol/L [facility] Cult,Bloodon 10-01-2024 Cult,Blood Specimen Description .BLOOD [...] to and read back by:YECENIA JOHNSON RN, [facility], 09/29/24 0745, RB CLARKR Report Status FINAL 10/20/2024 SUSCEPTIBILITY Organism ENTEROCOCCUS AVIUM Method MARINE Ampicillin <=2 SUSCEPTIBLE Gentamicin,High Level SUSCEPTIBLE Streptomycin,Hi Level SUSCEPTIBLE Vancomycin <=0.5 SUSCEPTIBLE Susceptible [facility] Comment on above: Performed By: #### L ACTIC #### [facility] [address] [place] [address] [employer] Cl[employer]ier: Ramiro Santillan MD Electrophoresis Protein, Ser on 10-01-2024 Albumin % 55 % 45 - 65 % [facility] Albumin [Mass/Vol] 2.3 g/dL Low 3.2 - 5.2 g/dL [facility] Alpha 1 globulin Elph [Mass/Vol] 0.2 g/dL 0.1 - 0.4 g/dL [facility] Alpha 1 globulin Elph [Mass/Vol] 5 % 3 - 6 % [facility] Alpha 2 % 15 % High 6 - 13 % [facility] Alpha 2 globulin Elph [Mass/Vol] 0.6 g/dL 0.5 - 0.9 g/dL [facility] Beta globulin Elph [Mass/Vol] 0.6 g/dL 0.5 - 1.1 g/dL [facility] Beta globulin Elph [Mass/Vol] 13 % 11 - 19 % [facility] Gamma Globulin % 12 % 9 - 20 % [facility] Gamma globulin Elph [Mass/Vol] 0.5 g/dL 0.5 - 1.5 g/dL [facility] Interpretation and review of laboratory results Abnormal [facility] Pathologist Cyto stain Nom (Cvx/Vag) [ID] ELECTRONICALLY SIGNED. DARLEEN LACY M.D. [facility] Protein [Mass/Vol] 4.2 g/dL Low 6.6 - 8.7 g/dL [facility] Protein Fractions [Interp] Albumin is decreased. May be observed with hepatic diseases, proteinuria, malnutrition, acute phase response, and hemodilution. Gammaglobulins are low normal. [facility] Total Prot. Sum 4.2 g/dL Low 6.3 - 8.2 g/dL [facility] Total Prot. Sum,% 100 % 98 - 102 % [facility] Glucose (POC)on 10-01-2024 Glucose [Mass/Vol] 180 mg/dL High 74-100 [facility] Glucose,Whole Bloodon 2023 Glucose [Mass/Vol] 126 mg/dL High 75-110 [facility] Glucose [Mass/Vol] 129 mg/dL High 75-110 [facility] Glucose [Mass/Vol] 125 mg/dL High 75-110 [facility] Glucose [Mass/Vol] 142 mg/dL High 75-110 [facility] Glucose [Mass/Vol] 548 mg/dL Critically high 75-110 [facility] Glucose [Mass/Vol] 141 mg/dL High 75-110 [facility] Glucose [Mass/Vol] 154 mg/dL High 75-110 [facility] Lipid Panelon 10-01-2024 Cholesterol [Mass/Vol] 177 mg/dL 0 - 1 99 mg/dL [facility] [employer] Cholesterol in HDL [Mass/Vol] 49 mg/dL 40 - PINF mg/dL [facility] [employer] Cholesterol in LDL [Mass/Vol] 85 mg/dL 0 - 100 mg/dL [facility] [employer] [facility] Cholesterol in VLDL [Mass/Vol] 43 mg/dL High 1 - 30 mg/dL [facility] Cholesterol.total/Chol esterol in HDL [Mass ratio] 3.6 {ratio} [facility] Interpretation and review of laboratory results Abnormal [facility] [employer] Triglyceride [Mass/Vol] 213 mg/dL High NINF - 150 mg/dL [facility] [employer] [facility] [employer] [facility] Lipid Profileon 10-01-2024 Cholesterol [Mass/Vol] 177 mg/dL Normal 0-199 [facility] Comment on above: Result Comment: Chol esterol Guidelines: <200 Desirable 200-240 Borderline >240 Undesirable Performed By: #### B MPX, LIPR, CDP ####[facility] [address] [place] [address] Lab Director: Ramiro Mark MD Cholesterol in HDL [Mass/Vol] 49 mg/dL Normal >40 [facility] Comment on above: Result Comment: HDL Guidelines: <40 Undesirable 40-59 Borderline >59 Desirable Performed By: #### B MPX, LIPR, CDP ####[facility] [address] [place] [address] Lab Director: Ramiro Mark MD Cholesterol in LDL [Mass/Vol] 85 mg/dL Normal 0-100 [facility] Comment on above: Result Comment: LDL Guidelines: <100 Desirable 100-129 Near to/above Desirable 130-159 Borderline >159 UndesirableDirect (measured) LDL and calculated LDL are not interchangeable tests. Performed By: #### B MPX, LIPR, CDP ####[facility] [address] [place] [address] Lab Director: Ramiro Mark MD Cholesterol in VLDL [Mass/Vol] 43 mg/dL High 1-30 [facility] Comment on above: Performed By: #### B MPX, LIPR, CDP ####[employer] [address] [place] [address] Lab Director: Ramiro Mark MD Cholesterol.total/Chol esterol in HDL [Mass ratio] 3.6 {ratio} Normal [facility] Comment on above: Performed By: #### B MPX, LIPR, CDP ####[facility] [address] [place], [place] [phone] Director: Ramiro Mark MD Triglyceride [Mass/Vol] 213 mg/dL High <150 [facility] Comment on above: Result Comment: Trig lyceride Guidelines: <150 Desirable 150- 199 Borderline 200-499 High >499 Very high Based on AHA Guidelines for fasting triglyceride, July 2012. Performed By: #### B MPX, LIPR, CDP ####[facility] [address] [place] [address] Lab Director: Ramiro Mark MD MYCOPLASMA PNEUMONIAE ANTIBO DY, IGMon 12-16-2024 M. pneumoniae IgM IA Ql (S) 0.22 NINF - 0.91 [facility] Mycoplasma Ab, IgMon 024 Mycoplasma Ab, IgM 0.22 Normal <0.91 [facility] Comment on above: Result Comment: Refe rence Range:<=0.90 Negative0.91-1.09 Equivocal>=1.10 Positive Performed By: #### P RCAL, CRP, MYCM, GLYHGB, TROPI, SED, CDP, LACTIC, IOCAL, BMPX ####[facility] [address] [place] [address] Lab Director: Ramiro Mark MD#### AGLYCO ####[facility] [address] [place] [address] lab Director: Wil Swanson MD No Panel Informationon 10-01 Interpretation and review of laboratory results Abnormal [facility] Interpretation and review of laboratory results Abnormal [facility] POC Glucose Fingerstickon Glucose [Mass/Vol] 126 mg/dL High 75 - 110 mg/dL [facility] Interpretation and review of laboratory results Abnormal [facility] Glucose [Mass/Vol] 129 mg/dL High 75 - 110 mg/dL [facility] Interpretation and review of laboratory results Abnormal [facility] Glucose [Mass/Vol] 125 mg/dL High 75 - 110 mg/dL [facility] Interpretation and review of laboratory results Abnormal [facility] Glucose [Mass/Vol] 142 mg/dL High 75 - 110 mg/dL [facility] Interpretation and review of laboratory results Abnormal [facility] Glucose [Mass/Vol] 548 mg/dL Critically high 75 - 1 10 mg/dL [facility] Glucose [Mass/Vol] 141 mg/dL High 75 - 110 mg/dL [facility] Glucose [Mass/Vol] 154 mg/dL High 75 - 110 mg/dL [facility] Interpretation and review of laboratory results Abnormal [facility] POCT Glucoseon 10-01-2024 Glucose [Mass/Vol] 180 mg/dL High 74 - 100 mg/dL [facility] Prot. Electroph, Blon 2023 Pathologist Review: ELECTRONICALLY ALEX LACY M.D. Normal [facility] Comment on above: Performed By: #### P HEP, BMP, ANAX, PE, FKLLC, CHELO, MG ####[facility] [address] [place] [address] Lab Director: Ramiro Mark MD Albumin [Mass/Vol] 2.3 g/dL Low 3.2-5.2 [facility] Comment on above: Performed By: #### P HEP, BMP, ANAX, PE, FKLLC, CHELO, MG ####[facility] [address] [place] [address] lab Director: Ramiro Mark MD Albumin, % 55 % Normal 45-65 [facility] Comment on above: Performed By: #### P HEP, BMP, ANAX, PE, FKLLC, CHELO, MG ####[facility] [address]cckv[address] [place] [address] lab Director: Ramiro Mark MD Telix-0-lobnuepoa 0.2 g/dL Normal 0.1-0.4 [facility] Comment on above: Performed By: #### P HEP, BMP, ANAX, PE, FKLLC, CHELO, MG ####[facility] [address]fc[address] [place] [address] Lab Director: Ramiro Mark MD Thjgw-3-yrilvebdh,% 5 % Normal 3-6 [facility] Comment on above: Performed By: #### P HEP, BMP, ANAX, PE, FKLLC, CHELO, MG ####[facility] [address] [place] [address] Lab Director: Ramiro Mark MD Sfjru-6-nwuwssmbq 0.6 g/dL Normal 0.5-0.9 [facility] Comment on above: Performed By: #### P HEP, BMP, ANAX, PE, FKLLC, CHELO, MG ####[facility] [address] [place] [address] Lab Director: Ramiro Mark MD Vdugf-4-nyatamspv,% 15 % High 6-13 [facility] Comment on above: Performed By: #### P HEP, BMP, ANAX, PE, FKLLC, CHELO, MG ####[address] [address] lab Director: Ramiro Mark MD Beta-globulins 0.6 g/dL Normal 0.5-1.1 [facility] Comment on above: Performed By: #### P HEP, BMP, ANAX, PE, FKLLC, CHELO, MG ####[facility] [address] [place] [address] Lab Director: Ramiro Mark MD Beta-globulins,% 13 % Normal 11-19 [facility] Comment on above: Performed By: #### P HEP, BMP, ANAX, PE, FKLLC, CHELO, MG ####[facility] [address] [place] [address] Lab Director: Ramiro Mark MD Gamma-globulins 0.5 g/dL Normal 0.5-1.5 [facility] Comment on above: Performed By: #### P HEP, BMP, ANAX, PE, FKLLC, CHELO, MG ####[facility] [address] [place] [address] Lab Director: Ramiro Mark MD Gamma-globulins,% 12 % Normal 9-20 [facility] Comment on above: Performed By: #### P HEP, BMP, ANAX, PE, FKLLC, CHELO, MG ####[facility] [address] [place] [address] Lab Director: Ramiro Mark MD Prot. Elect-Interp Albumin is decreased . May be observed with hepatic diseases, proteinuria, Normal [facility] Comment on above: Result Comment: maln utrition, acute phase response, and hemodilution. Gammaglobulins are low normal. Performed By: #### P HEP, BMP, ANAX, PE, FKLLC, CHELO, MG ####[facility] [address]miolpl[address] [place] [address] Lab Director: Ramiro Mark MD Total Prot. Sum 4.2 g/dL Low 6.3-8.2 [facility] Comment on above: Performed By: #### P HEP, BMP, ANAX, PE, FKLLC, CHELO, MG ####[facility] [address] [place] [address] Lab Director: Ramiro Mark MD Total Prot. Sum,% 100 % Normal 98-102 [facility] Comment on above: Performed By: #### P HEP, BMP, ANAX, PE, FKLLC, CHELO, MG ####[facility] [address]fnxhm[address] [place] [address] Lab Director: Ramiro Mark MD Prot. Electrophoresis, Uron 10-01-2024 Total Protein Conc. 100 mg/dL Normal [facility] Comment on above: Performed By: #### U PE, URTPRT, URNA, URCL ####[facility] [address] [place] [address] Lab Director: Ramiro Mark MD Arterial Bld Gas,POCon 09-30 Jody Test Positive Normal [facility] FIO2 30.0 Normal [facility] HCO3 (Bld) [Moles/Vol] 24.4 mmol/L Normal 21.0-28.[address] [facility] Mode of Delivery PRVC Normal [facility] O2 Device Adult Ventilator Normal [facility] Oxygen saturation in Blood 99.4 % High 94.0-98.0 [facility] pCO2, Arterial 36.0 mm Hg Normal 35.0-48.0 [facility] pH, Arterial 7.439 Normal 7.350-7.450 [facility] pO2, Arterial 152.9 mm Hg High 83.0-108.0 [facility] Positive Base Excess (calc) 0.3 mmol/L Normal 0.0-3.0 [facility] Site Drawn Left Radial Artery Normal [facility] Arterial Blood Gas, POCon Jody Test Positive [facility] Linea FIO2 30.0 [facility] HCO3 (Bld) [Moles/Vol] 24.4 mmol/L 21.0 - 28.0 mmol/L [facility] Mode PRVC [facility] O2 Delivery Device Adult Ventilator Bon [facility] Oxygen saturation in Blood 99.4 % High 94.0 - 98.0 % [facility] POC pCO2 36.0 [facility] POC pH 7.439 7.350 - 7.450 [facility] POC PO2 152.9 High [facility] Positive Base Excess, Art 0.3 mmol/L 0.0 - 3.0 mmol/L [facility] Sample Site Left Radial Artery [facility] Basic Metab w/rfx MGon 09-30 Anion gap [Moles/Vol] 12 mmol/L Normal 9-16 [facility] Comment on above: Performed By: #### B MPX, C4, C3, CDP ####Search to Phone2222 [place], [place] [phone] [facility] Director: Ramiro Mark MD Calcium [Mass/Vol] 7.8 mg/dL Low 8.6-10.4 [facility] Comment on above: Performed By: #### B MPX, C4, C3, CDP ####Search to Phone2222 [place] [address] Lab Director: Ramiro Mark MD Chloride [Moles/Vol] 101 mmol/L Normal 98-107 [facility] Comment on above: Performed By: #### B MPX, C4, C3, CDP ####[facility] [address]2758 [place] [address] Lab Director: Ramiro Mark MD CO2 [Moles/Vol] 19 mmol/L Low 20-31 [facility] Comment on above: Performed By: #### B MPX, C4, C3, CDP ####[facility] [address] [place], [place] [phone] Director: Ramiro Mark MD Creatinine [Mass/Vol] 2.5 mg/dL High 0.7-1.2 [facility] Comment on above: Performed By: #### B MPX, C4, C3, CDP ####[facility] [address] [place] [address] Lab Director: Ramiro Mark MD GFR/1.73 sq M.predicted among non-blacks MDRD (S/P/Bld) [Vol rate/Area] 31 mL/min/{1.73_m2} Low >60 [facility] Comment on above: Result Comment: Thes [...] #### B MPX, C4, C3, CDP ####[facility] [address] [place] [address] Lab Director: Ramiro Mark MD Glucose [Mass/Vol] 233 mg/dL High 74-99 [facility] Comment on above: Performed By: #### B MPX, C4, C3, CDP ####[facility] [address] [place] [address] Lab Director: Ramiro Mark MD Potassium [Moles/Vol] 4.3 mmol/L Normal 3.7-5.3 [facility] Comment on above: Performed By: #### B MPX, C4, C3, CDP ####[facility] [address] [place] [address] Lab Director: Ramiro Mark MD Sodium [Moles/Vol] 132 mmol/L Low 136-145 [facility] Comment on above: Performed By: #### B MPX, C4, C3, CDP ####[facility] [address] [place] [address] lab Director: Ramiro Mark MD Urea nitrogen [Mass/Vol] 47 mg/dL High 6-20 [facility] Comment on above: Performed By: #### B MPX, C4, C3, CDP ####[facility] [address] [place], [place] [phone] Lab Director: Ramiro Mark MD Basic Metabolic Panel w/ Ref jose to [facility] 09-30-2024 Anion gap [Moles/Vol] 12 mmol/L 9 - 16 mmol/L [facility] Calcium [Mass/Vol] 7.8 mg/dL Low 8.6 - 10. 4 mg/dL [facility] Chloride [Moles/Vol] 101 mmol/L 98 - 10 7 mmol/L [facility] CO2 [Moles/Vol] 19 mmol/L Low 20 - 31 mmol/L [facility] Creatinine [Mass/Vol] 2.5 mg/dL High 0.7 - 1.2 mg/dL [facility] Est, Glom Filt Rate 31 Low - PINF [facility] Glucose [Mass/Vol] 233 mg/dL High 74 - 99 mg/dL [facility] Interpretation and review of laboratory results Abnormal [facility] Potassium [Moles/Vol] 4.3 mmol/L 3.7 - 5.3 mmol/L [facility] Sodium [Moles/Vol] 132 mmol/L Low 136 - 145 mmol/L [facility] Urea nitrogen [Mass/Vol] 47 mg/dL High 6 - 20 mg/dL [facility] Bon [facility] C3on 09-30-2024 C3 117 mg/dL Normal 90-180 [facility] Comment on above: Performed By: #### B MPX, C4, C3, CDP ####[facility] [address] [place], [place] [phone] lab Director: Ramiro Mark MD C3 Complementon 09-30-2024 Complement C3 [Mass/Vol] 117 mg/dL 90 - 180 mg/dL [facility] C4on 09-30-2024 C4 22 mg/dL Normal 10-40 [facility] Comment on above: Performed By: #### B MPX, C4, C3, CDP ####[facility] [address] [place], [place] [phone] lab Director: Ramiro Mark MD C4 Complementon 09-30-2024 Complement C4 [Mass/Vol] 22 mg/dL 10 - 40 mg/dL [facility] CBC with Auto Differentialon 09-30-2024 Basophils (Bld) [#/Vol] 0.04 10*3/uL [facility] Basophils/100 WBC (Bld) 0 % 0 - 2 % [facility] Eosinophils (Bld) [#/Vol] 0.06 10*3/uL [facility] Eosinophils/100 WBC (Bld) 1 % 1 - 4 % [facility] Erythrocyte distribution width (RBC) [Ratio] 13.3 % 11.8 - 14.4 % [facility] Hematocrit (Bld) [Volume fraction] 26.2 % Low 40.7 - 50.3 % [facility] Hemoglobin (Bld) [Mass/Vol] 8.4 g/dL Low 13.0 - 17.0 g/dL [facility] Immature granulocytes (Bld) [#/Vol] 0.06 10*3/uL [facility] Immature granulocytes/100 WBC (Bld) 1 % High 0 [facility] Interpretation and review of laboratory results Abnormal [facility] Lymphocytes/100 WBC (Bld) 12 % Low 24 - 43 % [facility] Lymphocytes/100 WBC (Bld) 1.51 % [facility] MCH (RBC) [Entitic mass] 28.9 pg 25.2 - 33.5 pg [facility] MCHC (RBC) [Mass/Vol] 32.1 g/dL 28.4 - 34.8 g/dL [facility] MCV (RBC) [Entitic vol] 90.0 fL 82.6 - 102.9 fL [facility] Monocytes/100 WBC (Bld) 6 % 3 - 12 % [facility] Monocytes/100 WBC (Bld) 0.77 % [facility] Neutrophils/100 WBC (Bld) 81 % High 36 - 65 % [facility] Nucleated RBC/100 WBC (Bld) [Ratio] 0.0 % 0.0 per 100 WBC [facility] Platelet mean volume (Bld) [Entitic vol] 10.9 fL 8.1 - 13.5 fL [facility] Platelets (Bld) [#/Vol] 186 10*3/uL [facility] RBC (Bld) [#/Vol] 2.91 10*6/uL Low 4.21 - 5.7 7 m/uL [facility] Segmented neutrophils/100 WBC (Bld) 10.11 % High [facility] WBC other (Bld) [#/Vol] 12.6 High [facility] CBC with Diffon 09-30-2024 Abs. Basophil 0.04 k/uL Normal 0.00-0.20 [facility] Comment on above: Performed By: #### B MPX, C4, C3, CDP ####[facility] [address] [place], [place] [phone] [facility] Director: Ramiro Mark MD Abs.Imm.Granulocyte 0.06 k/uL Normal 0.00-0.30 [facility] Comment on above: Performed By: #### B MPX, C4, C3, CDP ####[place], [place] [address])[phone] Director: Ramiro Mark MD Abs.Neutrophil (Seg) 10.11 k/uL High 1.50-8.10 [facility] Comment on above: Performed By: #### B MPX, C4, C3, CDP ####[place], [place] [address])[phone] Director: Ramiro Mark MD Basophils/100 WBC (Bld) 0 % Normal 0-2 [facility] Comment on above: Performed By: #### B MPX, C4, C3, CDP ####[place], [place] [address])[phone] Director: Ramiro Mark MD Eosinophils (Bld) [#/Vol] 0.06 10*3/uL Normal 0.00-0.44 [facility] Comment on above: Performed By: #### B MPX, C4, C3, CDP ####[place], [place] [address])[phone] Director: Ramiro Mark MD Eosinophils/100 WBC (Bld) 1 % Normal 1-4 [facility] Comment on above: Performed By: #### B MPX, C4, C3, CDP ####[place], [place] [address])[phone] Director: Ramiro Mark MD Erythrocyte distribution width (RBC) [Ratio] 13.3 % Normal 11.8-14.4 [facility] Comment on above: Performed By: #### B MPX, C4, C3, CDP ####[place], [place] [address])[phone] Director: Ramiro Mark MD Hematocrit (Bld) [Volume fraction] 26.2 % Low 40.7-50.3 [facility] Comment on above: Performed By: #### B MPX, C4, C3, CDP ####[address] [phone] Director: Ramiro Mark MD Hemoglobin (Bld) [Mass/Vol] 8.4 g/dL Low 13.0-17.0 [facility] Comment on above: Performed By: #### B MPX, C4, C3, CDP ####[facility] [address] [place] [address] [phone] Director: Ramiro Mark MD Immature granulocytes/100 WBC (Bld) 1 % High 0 [facility] Comment on above: Performed By: #### B MPX, C4, C3, CDP ####[address] [address])[phone] Director: Ramiro Mark MD Lymphocytes (Bld) [#/Vol] 1.51 10*3/uL Normal 1.10-3.70 [facility] Comment on above: Performed By: #### B MPX, C4, C3, CDP ####[address] [phone] Director: Ramiro Mark MD Lymphocytes/100 WBC (Bld) 12 % Low 24-43 [facility] Comment on above: Performed By: #### B MPX, C4, C3, CDP ####[facility] [address] [place] [address] [phone] Director: Ramiro Mark MD MCH (RBC) [Entitic mass] 28.9 pg Normal 25.2-33.5 [facility] Comment on above: Performed By: #### B MPX, C4, C3, CDP ####[facility] [address] [place], [place] [phone] Director: Ramiro Mark MD MCHC (RBC) [Mass/Vol] 32.1 g/dL Normal 28.4-34.8 [facility] Comment on above: Performed By: #### B MPX, C4, C3, CDP ####[address] [phone] Director: Ramiro Mark MD MCV (RBC) [Entitic vol] 90.0 fL Normal 82.6-102.9 [facility] Comment on above: Performed By: #### B MPX, C4, C3, CDP ####[address] [phone] Director: Ramiro Mark MD Monocytes (Bld) [#/Vol] 0.77 10*3/uL Normal 0.10-1.20 [facility] Comment on above: Performed By: #### B MPX, C4, C3, CDP ####[place], [place] [address])[phone] Director: Ramiro Mark MD Monocytes/100 WBC (Bld) 6 % Normal 3-12 [facility] Comment on above: Performed By: #### B MPX, C4, C3, CDP ####[address] [phone] Director: Ramiro Mark MD Neutrophil (Seg) 81 % High 36-65 [facility] Comment on above: Performed By: #### B MPX, C4, C3, CDP ####[facility] [address] [place] [address] [phone] Director: Ramiro Mark MD NRBC Automated 0.0 per 100 WBC Normal 0.0 [facility] Comment on above: Performed By: #### B MPX, C4, C3, CDP ####[facility] [address] [place], [place] [phone] Director: Ramiro Mark MD Platelet mean volume (Bld) [Entitic vol] 10.9 fL Normal 8.1-13.5 [facility] Comment on above: Performed By: #### B MPX, C4, C3, CDP ####[facility] [address] [place] [address] Lab Director: Ramiro Mark MD Platelets (Bld) [#/Vol] 186 10*3/uL Normal 138-453 [facility] Comment on above: Performed By: #### B MPX, C4, C3, CDP ####[facility] [address] [place] [address] Lab Director: Ramiro Mark MD RBC (Bld) [#/Vol] 2.91 10*6/uL Low 4.21-5.77 [facility] Comment on above: Performed By: #### B MPX, C4, C3, CDP ####[facility] [address] [place] [address] Lab Director: Ramiro Mark MD WBC (Bld) [#/Vol] 12.6 10*3/uL High 3.5-11.3 [facility] Comment on above: Performed By: #### B MPX, C4, C3, CDP ####[facility] [address] [place] [address] Lab Director: Ramiro Mark MD Calcium, Ionicon 09-30-2024 Calcium [Moles/Vol] 1.20 mmol/L Normal 1.13-1.33 [facility] Comment on above: Performed By: #### I OCAL ####[facility] [address] [place] [address] Lab Director: Ramiro Mark MD Calcium, Ionizedon Calcium.ionized (Bld) [Moles/Vol] 1.20 mmol/L 1.13 - 1.33 mmol/L [facility] Bon [facility] Chloride, Random Urineon Chloride (U) [Moles/Vol] mmol/L mmol/L [facility] Chloride,Random Uron 024 Cl Conc. <20 Normal [facility] Comment on above: Result Comment: No n ormal range established. Performed By: #### U PE, URTPRT, URNA, URCL ####[facility] [address] [place], [place] [phone] lab Director: Ramiro Mark MD Cult,Respiratoryon 4 Cult,Respiratory Abnormal [facility] Comment on above: Performed By: #### R ESPC ####[facility] [address] [place] [address] lab Director: Ramiro Mark MD [facility] Interpretation and review of laboratory results Abnormal [facility] Microorganism identified Cx Nom (Unsp spec) NORMAL RESPIRATORY AYDEN LIGHT GROWTH [facility] Microorganism or agent identified Nom (Unsp spec) < 10 EPITHELIAL CELLS/LPF [facility] Microorganism or agent identified Nom (Unsp spec) >10, <25 NEUTROPHILS/LPF [facility] Microorganism or agent identified Nom (Unsp spec) Positive Abnormal [facility] Service comment (Unsp spec) [Interp] Site: Respiratory specimen [facility] Specimen Description .TRACHEAL ASPIRATE [facility] Free [place] + Lambdaon 2023 Free [place] Lt Chains 41.5 mg/L High <20.7 [facility] Comment on above: Result Comment: Perf ormed using Diazyme reagent on Jaime Moira Pro. Results obtained with different assay methods cannot be used interchangeably. Performed By: #### P HEP, BMP, ANAX, PE, FKLLC, CHELO, MG ####[facility] [address] [place] [address] Lab Director: Ramiro Mark MD Free [place]/Lambda Rat 1.17 Normal 0.22-1.74 [facility] Comment on above: Performed By: #### P HEP, BMP, ANAX, PE, FKLLC, CHELO, MG ####[facility] Hospital[facility] Organic LightRiujcuquqlmk[address] [place], [place] [phone] Lab Director: Ramiro Mark MD Free Lambda Lt Chains 35.6 mg/L High 4.2-27.7 [facility] Comment on above: Result Comment: Perf ormed using Diazyme reagent on Jaime Moira Pro. Results obtained with different assay methods cannot be used interchangeably. Performed By: #### P HEP, BMP, ANAX, PE, FKLLC, CHELO, MG ####[facility] [address] [place], [place] [phone] Lab Director: Ramiro Mark MD [facility] 4 Estimated Avg Glucose >427 mg/dL [facility] HbA1c (Bld) [Mass fraction] % High NINF - 5.6 % [facility] Interpretation and review of laboratory results Abnormal [facility] Glucose (POC)on 09-30-2024 Glucose [Mass/Vol] 242 mg/dL High 74-100 [facility] Glucose,Whole Bloodon 2023 Glucose [Mass/Vol] 170 mg/dL High 75-110 [facility] Glucose [Mass/Vol] 176 mg/dL High 75-110 [facility] Glucose [Mass/Vol] 202 mg/dL High 75-110 [facility] Glucose [Mass/Vol] 258 mg/dL High 75-110 [facility] Glycosylated [facility] [address] Glucose >427 Normal [facility] Comment on above: Result Comment: (NOT E)Performed By: [place] [place] [id number] Director: Rogelio Miranda MD, PhDCLIA Number: [id number] Performed By: #### P RCAL, CRP, MYCM, GLYHGB, TROPI, SED, CDP, LACTIC, IOCAL, BMPX ####[facility] [address] [place], [place] [phone] Lab Director: Ramiro Mark MD#### AGLYCO ####[facility] [address] [place] [address] Lab Director: Wil Swanson MD HbA1c (Bld) [Mass fraction] % High <=5.6 [facility] Comment on above: Result Comment: (NOT E)INTERPRETIVE INFORMATION: Hemoglobin [id number] values of 5.7-6.4 percent indicate an increased risk fordeveloping diabetes mellitus. HbA1c values greater than or equalto 6.5 percent are diagnostic of diabetes mellitus. For diagnosisof diabetes in individuals without unequivocal hyperglycemia,results should be confirmed by repeat testing. Performed By: #### P RCAL, CRP, MYCM, GLYHGB, TROPI, SED, CDP, LACTIC, IOCAL, BMPX ####[facility] [address] [place] [address] Lab Director: Ramiro Mark MD#### AGLYCO ####[facility] [address] [place] [address] Lab Director: Wil Swanson MD Hepatitis Acute [facility] 09-30 Hep A Ab,IgM Non-Reactive Normal NR [facility] Comment on above: Performed By: #### P HEP, BMP, ANAX, PE, FKLLC, CHELO, MG ####[facility] [address] [place] [address] Lab Director: Ramiro Mark MD Hep B Core Ab,IgM Non-Reactive Normal NR [facility] Comment on above: Performed By: #### P HEP, BMP, ANAX, PE, FKLLC, CHELO, MG ####[facility] [address] [place] [address] Lab Director: Ramiro Mark MD Hep B Surf Ag Non-Reactive Normal NR [facility] Comment on above: Performed By: #### P HEP, BMP, ANAX, PE, FKLLC, CHELO, MG ####[facility] [address] [place], [place] [phone] lab Director: Ramiro Mark MD Hep C Ab Non-Reactive Normal NR [facility] Comment on above: Result Comment: The [...] BMP, ANAX, PE, FKLLC, CHELO, MG ####[facility] [address] [place], [place] [phone] lab Director: Ramiro Mark MD Hepatitis Panel, Acuteon HAV IgM IA Ql Non-Reactive NONREACTIVE [facility] HBV core IgM IA Ql Non-Reactive NONREACTIVE [facility] HBV surface Ag IA Ql Non-Reactive NONREACTIVE B [facility] HCV Ab IA Ql Non-Reactive NONREACTIVE [facility] [place]/Lambda Quantitative Fr ee Light Chains, Serumon 09-30-2024 Free [place]/Lambda Ratio 1.17 0.22 - 1.74 [facility] Immunoglobulin light chains.kappa.free (S) [Mass/Vol] 41.5 mg/L High NINF - 20.7 mg/L [facility] Immunoglobulin light chains.lambda.free [Mass/Vol] 35.6 mg/L High 4.2 - 27.7 mg/L [facility] Interpretation and review of laboratory results Abnormal [facility] Lactic Acid (POC)on 09-30-20 24 Lactate [Moles/Vol] 0.8 mmol/L Normal 0.56-1.39 [facility] Lactic Acid, POCon 4 POC Lactic Acid 0.8 mmol/L 0.56 - 1.39 mmol/L [facility] MR Brain WO contraston 09-30 PN RIS CONSOLIDATED [facility] RIS CONSOLIDATED [facility] Radiology Study observation (narrative) [facility] MR Brain WO contrastOrdered By: Jeffery Smalls on 09-30-2024 [facility] Work Phone: MRI BRAIN WO CONTRASTon 09-16 MRI BRAIN WO CONTRAST Normal [facility] Microscopic Urinalysison Bacteria LM Ql (Urine sed) None None [facility] Casts LM.LPF (Urine sed) [#/Area] 10 TO 20 HYALINE Reference range defined for non-centrifuged specimen. [facility] Epithelial cells LM.HPF (Urine sed) [#/Area] 5 TO 10 [facility] RBC LM.HPF (Urine sed) [#/Area] 10 TO 20 [facility] WBC LM.HPF (Urine sed) [#/Area] 5 TO 10 [facility] No Panel Informationon 09-30 [facility] Interpretation and review of laboratory results Abnormal [facility] POC Glucose Fingerstickon Glucose [Mass/Vol] 170 mg/dL High 75 - 110 mg/dL [facility] Interpretation and review of laboratory results Abnormal [facility] Glucose [Mass/Vol] 176 mg/dL High 75 - 110 mg/dL [facility] Interpretation and review of laboratory results Abnormal [facility] Glucose [Mass/Vol] 202 mg/dL High 75 - 110 mg/dL [facility] Interpretation and review of laboratory results Abnormal [facility] Glucose [Mass/Vol] 258 mg/dL High 75 - 110 mg/dL [facility] Interpretation and review of laboratory results Abnormal [facility] POCT Glucoseon 09-30-2024 Glucose [Mass/Vol] 242 mg/dL High 74 - 100 mg/dL [facility] Prot. Electroph, Blon 2023 Protein [Mass/Vol] 4.2 g/dL Low 6.6-8.7 [facility] Comment on above: Performed By: #### P HEP, BMP, ANAX, PE, FKLLC, CHELO, MG ####[facility] [address] [place] [address] Lab Director: Ramiro Mark MD Prot. Electrophoresis, Uron 09-30-2024 Type of Specimen .URINE Normal [facility] Comment on above: Performed By: #### U PE, URTPRT, URNA, URCL ####[facility] [address] [place] [address] Lab Director: Ramiro Mark MD Protein / creatinine ratio, urineon 09-30-2024 Creatinine (U) [Mass/Vol] 41.2 mg/dL 39.0 - 259.0 mg/dL [facility] Interpretation and review of laboratory results Abnormal [facility] Protein (U) [Mass/Vol] 100 mg/dL [facility] Urine Total Protein Creatinine Ratio 2.43 High 0.00 - 0.20 [facility] Protein,Tot,[place] Uron 2023 Creatinine [Mass/Vol] 41.2 mg/dL Normal 39.0-259.0 [facility] Comment on above: Performed By: #### U PE, URTPRT, URNA, URCL ####[facility] [address] [place], [place] [phone] Director: Ramiro Mark MD Tot Prot. Conc. 100 mg/dL Normal [facility] Comment on above: Result Comment: No n ormal range established. Performed By: #### U PE, URTPRT, URNA, URCL ####[facility] [address] [place] [address] Lab Director: Ramiro Mark MD TP/Cre Ratio 2.43 High 0.00-0.20 [facility] Comment on above: Performed By: #### U PE, URTPRT, URNA, URCL ####[facility] [address] [place] [address] Lab Director: Ramiro Mark MD Sodium, Random Uron 09-30-20 24 Na Conc. Urine <20 Normal [facility] Comment on above: Result Comment: No n ormal range established. Performed By: #### U PE, URTPRT, URNA, URCL ####[facility] [address] [place] [address] Lab Director: Ramiro Mark MD Sodium, urine, randomon 09-16 Sodium (U) [Moles/Vol] mmol/L mmol/L [facility] Cultureon 2023 Bilirubin, SemiQt,Ur Negative Normal NEG [facility] Comment on above: Performed By: #### U AX, UMICAO ####[facility] [address] [place] [address] Lab Director: Ramiro Mark MD Blood, Urine MODERATE Abnormal NEG [facility] Comment on above: Performed By: #### U AX, UMICAO ####[facility] [address] [place] [address] Lab Director: Ramiro Mark MD Clarity (U) Cloudy Abnormal CLEAR [facility] Comment on above: Performed By: #### U AX, UMICAO ####[facility] [address] [place] [address] Lab Director: Ramiro Mark MD Color (U) Yellow Normal YEL [facility] Comment on above: Performed By: #### U AX, UMICAO ####[facility] [address] [place] [address] Lab Director: Ramiro Mark MD Glucose Ql (U) 3+ mg/dL Abnormal NEG [facility] Comment on above: Performed By: #### U AX, UMICAO ####[facility] [address] [place] [address] Lab Director: Ramiro Mark MD Ketones Ql (U) Negative Normal NEG [facility] Comment on above: Performed By: #### U AX, UMICAO ####[facility] [address] [place], [place] [phone] Director: Ramiro Mark MD Leukocyte esterase Test strip Ql (U) Negative Normal NEG [facility] Comment on above: Performed By: #### U AX, UMICAO ####[facility] [address] [place], [place] [phone] Director: Ramiro Mark MD Nitrite,Ur Negative Normal NEG [facility] Comment on above: Performed By: #### U AX, UMICAO ####[facility] [address] [place], [place] [phone] Director: Ramiro Mark MD PH,Ur 5.0 Normal 5.0-8.0 [facility] Comment on above: Performed By: #### U AX, UMICAO ####[facility] [address] [place], [place] [phone] Director: Ramiro Mark MD Protein Ql (U) 3+ mg/dL Abnormal NEG [facility] Comment on above: Performed By: #### U AX, UMICAO ####[facility] [address]vsq[address] [place], [place] [phone] Director: Ramiro Mark MD Spec. [place],Ur 1.027 Normal 1.005-1.030 [facility] Comment on above: Performed By: #### U AX, UMICAO ####[facility] [address]knfp[address] [place] [address] Lab Director: Ramiro Mark MD Urobilinogen,Ur Normal Normal 0.0-1.0 [facility] Comment on above: Performed By: #### U AX, UMICAO ####[facility] [address] [place] [address] Lab Director: Ramiro Mark MD Urinalysis with Reflex to Cu ltureon 09-30-2024 Bilirubin Ql (U) Negative NEGATIVE [facility] Clarity (U) Cloudy Abnormal Clear [facility] Color (U) Yellow Yellow [facility] Glucose Test strip (U) [Mass/Vol] 3+ Abnormal NEGATIVE mg/dL [facility] Hemoglobin Auto test strip Ql (U) MODERATE Abnormal NEGATIVE [facility] Interpretation and review of laboratory results Abnormal [facility] Ketones (U) [Mass/Vol] Negative NEGAT RAJAN mg/dL [facility] Leukocyte esterase Test strip Ql (U) Negative NEGATIVE [facility] Nitrite Ql (U) Negative NEGATIVE [place] [facility] pH (U) 5.0 [pH] 5.0 - 8.0 [facility] Protein (U) [Mass/Vol] 3+ Abnormal NEGAT RAJAN mg/dL [facility] Specific gravity (U) [Rel density] 1.027 1.005 - 1.030 [facility] Urobilinogen Qn (U) Normal 0.0 - 1. 0 EU/dL [facility] Urinalysis,Microon 4 Bacteria None Normal NONE [facility] Comment on above: Performed By: #### U AX, UMICAO ####[employer] [address] [place], [place] [phone] Lab Director: Ramiro Mark MD Casts 10 TO 20 HYALINE Normal 0-8 [facility] Comment on above: Result Comment: Refe rence range defined for non-centrifuged specimen. Performed By: #### U AX, UMICAO ####[employer] [address] [place], [place] 1912608 Lab Director: Ramiro Mark MD Epithelial cells LM Ql (Urine sed) 5 TO 10 Normal 0-5 [facility] Comment on above: Performed By: #### U AX, UMICAO ####[employer] [address] [place] [address] lab Director: Ramiro Mark MD Urine RBC's 10 TO 20 Normal 0-4 [facility] Comment on above: Result Comment: Refe rence range defined for non-centrifuged specimen. Performed By: #### U AX, UMICAO ####[facility] [address] [place], [place] [id number] lab Director: Ramiro Mark MD Urine WBC's 5 TO 10 Normal 0-5 [facility] Comment on above: Performed By: #### U AX, UMICAO ####[facility] [address] [place], [place] [phone] lab Director: Ramiro Mark MD Anti-Xa, [facility]ated [facility] Anti-XA Unfrac Heparin 0.51 IU/L [facility] Anti-XA Unfrac Heparin 0.28 IU/L [facility] Anti-XA Unfrac Heparin 0.44 IU/L [facility] Arterial Bld Gas,POCon 09-29 Jody Test Positive Normal [facility] FIO2 30.0 Normal [facility] HCO3 (Bld) [Moles/Vol] 25.0 mmol/L Normal 21.0-28.[address] [facility] Oxygen saturation in Blood 99.5 % High 94.0-98.0 [facility] pCO2, Arterial 38.9 mm Hg Normal 35.0-48.0 [facility] pH, Arterial 7.415 Normal 7.350-7.450 [facility] pO2, Arterial 161.8 mm Hg High 83.0-108.0 [facility] Positive Base Excess (calc) 0.4 mmol/L Normal 0.0-3.0 [facility] Site Drawn Right Radial Artery Normal [facility] Arterial Blood Gas, POCon Jody Test Positive [facility] FIO2 30.0 [facility] HCO3 (Bld) [Moles/Vol] 25.0 mmol/L 21.0 - 28.0 mmol/L [facility] Oxygen saturation in Blood 99.5 % High 94.0 - 98.0 % [facility] POC pCO2 38.9 [facility] POC pH 7.415 7.350 - 7.450 [facility] POC PO2 161.8 High [facility] Positive Base Excess, Art 0.4 mmol/L 0.0 - 3.0 mmol/L [facility] Sample Site Right Radial Artery [facility] Basic Metabolic Panelon 12-1 Anion gap [Moles/Vol] 12 mmol/L 9 - 16 mmol/L [facility] Calcium [Mass/Vol] 8.1 mg/dL Low 8.6 - 10. 4 mg/dL [facility] Chloride [Moles/Vol] 101 mmol/L 98 - 10 7 mmol/L [facility] CO2 [Moles/Vol] 20 mmol/L 20 - 31 mmol/L [facility] Creatinine [Mass/Vol] 2.4 mg/dL High 0.7 - 1.2 mg/dL [facility] Est, Glom Filt Rate 32 Low - PINF [facility] Glucose [Mass/Vol] 258 mg/dL High 74 - 99 mg/dL [facility] Interpretation and review of laboratory results Abnormal [facility] Potassium [Moles/Vol] 4.4 mmol/L 3.7 - 5.3 mmol/L [facility] Sodium [Moles/Vol] 133 mmol/L Low 136 - 145 mmol/L [facility] Urea nitrogen [Mass/Vol] 39 mg/dL High 6 - 20 mg/dL [facility] Est, Glom Filt Rate 36 Low - PINF [facility] Interpretation and review of laboratory results Abnormal [facility] Anion gap [Moles/Vol] 11 mmol/L 9 - 16 mmol/L [facility] Calcium [Mass/Vol] 8.0 mg/dL Low 8.6 - 10. 4 mg/dL [facility] Chloride [Moles/Vol] 104 mmol/L 98 - 10 7 mmol/L [facility] CO2 [Moles/Vol] 21 mmol/L 20 - 31 mmol/L [facility] Creatinine [Mass/Vol] 2.4 mg/dL High 0.7 - 1.2 mg/dL [facility] Est, Glom Filt Rate 32 Low - PINF [facility] Glucose [Mass/Vol] 214 mg/dL High 74 - 99 mg/dL [facility] Interpretation and review of laboratory results Abnormal [facility] Potassium [Moles/Vol] 3.8 mmol/L 3.7 - 5.3 mmol/L [facility] Sodium [Moles/Vol] 136 mmol/L 136 - 145 mmol/L [facility] Urea nitrogen [Mass/Vol] 41 mg/dL High 6 - 20 mg/dL [facility] Basic Metabolic Profon 09-29 Anion gap [Moles/Vol] 12 mmol/L Normal 9-16 [facility] Comment on above: Performed By: #### P HO, MG, BMP, HEPXA ####[employer] [address] [place] [address] Lab Director: Ramiro Mark MD Calcium [Mass/Vol] 8.1 mg/dL Low 8.6-10.4 [facility] Comment on above: Performed By: #### P HO, MG, BMP, HEPXA ####[employer] [address] [place] [phone] Lab Director: Ramiro Mark MD Chloride [Moles/Vol] 101 mmol/L Normal 98-107 [facility] Comment on above: Performed By: #### P HO, MG, BMP, HEPXA ####[facility] [address] [place] [phone] lab Director: Ramiro Mark MD CO2 [Moles/Vol] 20 mmol/L Normal 20-31 [facility] Comment on above: Performed By: #### P HO, MG, BMP, HEPXA ####[facility] [address] [place] [address] Lab Director: Ramiro Mark MD Creatinine [Mass/Vol] 2.4 mg/dL High 0.7-1.2 [facility] Comment on above: Performed By: #### P HO, MG, BMP, HEPXA ####[facility] [address] [place] [address] Lab Director: Ramiro Mark MD GFR/1.73 sq M.predicted among non-blacks MDRD (S/P/Bld) [Vol rate/Area] 32 mL/min/{1.73_m2} Low >60 [facility] Comment on above: Result Comment: Thes [...] #### P HO, MG, BMP, HEPXA ####[facility] [address] [place] [address] Lab Director: Ramiro Mark MD Glucose [Mass/Vol] 258 mg/dL High 74-99 [facility] Comment on above: Performed By: #### P HO, MG, BMP, HEPXA ####[facility] [address] [place] [address] Lab Director: Ramiro Mark MD Potassium [Moles/Vol] 4.4 mmol/L Normal 3.7-5.3 [facility] Comment on above: Result Comment: Spec imen hemolysis has exceeded the interference as defined by Jaime. Value may be falsely increased. Suggest recollection if clinically indicated. Performed By: #### P HO, MG, BMP, HEPXA ####[facility] [address] [place] [address] Lab Director: Ramiro Mark MD Sodium [Moles/Vol] 133 mmol/L Low 136-145 [facility] Comment on above: Performed By: #### P HO, MG, BMP, HEPXA ####[facility] [address] [place] [address] Lab Director: Ramiro Mark MD Urea nitrogen [Mass/Vol] 39 mg/dL High 6-20 [facility] Comment on above: Performed By: #### P HO, MG, BMP, HEPXA ####[facility] [address] [place] [address] Lab Director: Ramiro Mark MD Anion gap [Moles/Vol] 9 mmol/L Normal 9-16 [facility] Comment on above: Performed By: #### P HEP, BMP, ANAX, PE, FKLLC, CHELO, MG ####[facility] [address] [place] [address] Lab Director: Ramiro Mark MD Calcium [Mass/Vol] 7.1 mg/dL Low 8.6-10.4 [facility] Comment on above: Performed By: #### P HEP, BMP, ANAX, PE, FKLLC, CHELO, MG ####[facility] [address] [place] [address] Lab Director: Ramiro Mark MD Chloride [Moles/Vol] 99 mmol/L Normal 98-107 [facility] Comment on above: Performed By: #### P HEP, BMP, ANAX, PE, FKLLC, CHELO, MG ####[facility] [address] [place] [address] Lab Director: Ramiro Mark MD CO2 [Moles/Vol] 19 mmol/L Low 20-31 [facility] Comment on above: Performed By: #### P HEP, BMP, ANAX, PE, FKLLC, CHELO, MG ####[facility] [address] [place] [address] Lab Director: Ramiro Mark MD Creatinine [Mass/Vol] 2.2 mg/dL High 0.7-1.2 Bon [facility] Comment on above: Performed By: #### P HEP, BMP, ANAX, PE, FKLLC, CHELO, MG ####[facility] [address] [place] [address] Lab Director: Ramiro Mark MD Glucose [Mass/Vol] 588 mg/dL Critically high 74-99 B on [facility] Comment on above: Performed By: #### P HEP, BMP, ANAX, PE, FKLLC, CHELO, MG ####[facility] [address] [place] [address] Lab Director: Ramiro Mark MD Potassium [Moles/Vol] 3.5 mmol/L Low 3.7-5.3 [facility] Comment on above: Performed By: #### P HEP, BMP, ANAX, PE, FKLLC, CHELO, MG ####[facility] [address] [place] [address] Lab Director: Ramiro Mark MD Sodium [Moles/Vol] 127 mmol/L Low 136-145 Bon [facility] Comment on above: Performed By: #### P HEP, BMP, ANAX, PE, FKLLC, CHELO, MG ####[facility] [address] [place] [address] Lab Director: Ramiro Mark MD Urea nitrogen [Mass/Vol] 34 mg/dL High 6-20 [facility] Comment on above: Performed By: #### P HEP, BMP, ANAX, PE, FKLLC, CHELO, MG ####[facility] [address] [place] [address] Lab Director: Ramiro Mark MD GFR/1.73 sq M.predicted among non-blacks MDRD (S/P/Bld) [Vol rate/Area] 36 mL/min/{1.73_m2} Low >60 [facility] Comment on above: Result Comment: Thes [...] BMP, ANAX, PE, FKLLC, CHELO, MG ####[facility] [address] [place], [place] [address])[phone] Director: Ramiro Mark MD Anion gap [Moles/Vol] 11 mmol/L Normal 9-16 [facility] Comment on above: Performed By: #### P HO, MG, BMP ####[facility] [address] [place] [address])[phone] Director: Ramiro Mark MD Calcium [Mass/Vol] 8.0 mg/dL Low 8.6-10.4 [facility] Comment on above: Performed By: #### P HO, MG, BMP ####[facility] [address] [place] [address])[phone] Director: Ramiro Mark MD Chloride [Moles/Vol] 104 mmol/L Normal 98-107 [facility] Comment on above: Performed By: #### P HO, MG, BMP ####[facility] [address] [place], [place] [address])[phone] Director: Ramiro Mark MD CO2 [Moles/Vol] 21 mmol/L Normal 20-31 [facility] Comment on above: Performed By: #### P HO, MG, BMP ####[facility] [address] [place], [place] [address])[phone] Director: Ramiro Mark MD Creatinine [Mass/Vol] 2.4 mg/dL High 0.7-1.2 [facility] Comment on above: Performed By: #### P HO, MG, BMP ####[facility] [address]1915 [place] [address] Lab Director: Ramiro Mark MD GFR/1.73 sq M.predicted among non-blacks MDRD (S/P/Bld) [Vol rate/Area] 32 mL/min/{1.73_m2} Low >60 [facility] Comment on above: Result Comment: Thes [...] Performed By: #### P HO, MG, BMP ####[facility] [address] [place] [address])[phone] Director: Ramiro Mark MD Glucose [Mass/Vol] 214 mg/dL High 74-99 [facility] Comment on above: Performed By: #### P HO, MG, BMP ####[facility] [address] [place] [address] Lab Director: Ramiro Mark MD Potassium [Moles/Vol] 3.8 mmol/L Normal 3.7-5.3 [facility] Comment on above: Performed By: #### P HO, MG, BMP ####[facility] [address] [place] [address] Lab Director: Ramiro Mark MD Sodium [Moles/Vol] 136 mmol/L Normal 136-145 [facility] Comment on above: Performed By: #### P HO, MG, BMP ####[facility] [address] [place] [address] Lab Director: Ramiro Mark MD Urea nitrogen [Mass/Vol] 41 mg/dL High 6-20 [facility] Comment on above: Performed By: #### P HO, MG, BMP ####[facility] [address] [place] [address] lab Director: Ramiro Mark MD CBC with Auto Differentialon 09-29-2024 Basophils (Bld) [#/Vol] 0.05 10*3/uL [facility] Basophils/100 WBC (Bld) 0 [...] (Bld) 1 % High 0 [facility] Interpretation and review of laboratory [...] vol] 10.6 fL 8.1 - 13.5 fL [facility] Platelets (Bld) [#/Vol] 214 10*3/uL [facility] RBC (Bld) [#/Vol] 3.08 10*6/uL Low 4.21 - 5.7 7 m/uL [facility] Segmented neutrophils/100 WBC (Bld) 15.23 % High [facility] WBC other (Bld) [#/Vol] 17.6 High [facility] CBC with Diffon 09-29-2024 Abs. Basophil 0.05 k/uL Normal 0.00-0.20 [facility] Comment on above: Performed By: #### C DP ####[place], [place] [address])[phone] Director: Ramiro Mark MD Abs. Eosinophil <0.03 Normal 0.00-0.44 [facility] Comment on above: Performed By: #### C DP ####[place], [place] [address])[phone] Director: Ramiro Mark MD Abs.Imm.Granulocyte 0.12 k/uL Normal 0.00-0.30 [facility] Comment on above: Performed By: #### C DP ####[place], [place] [address])[phone] Director: Ramiro Mark MD Abs.Neutrophil (Seg) 15.23 k/uL High 1.50-8.10 [facility] Comment on above: Performed By: #### C DP ####[place], [place] [address])[phone] Director: Ramiro Mark MD Basophils/100 WBC (Bld) 0 % Normal 0-2 [facility] Comment on above: Performed By: #### C DP ####[place], [place] [address])[phone] Director: Ramiro Mark MD Eosinophils/100 WBC (Bld) 0 % Low 1-4 [facility] Comment on above: Performed By: #### C DP ####[address] [id number])[phone] Director: Ramiro Mark MD Erythrocyte distribution width (RBC) [Ratio] 13.1 % Normal 11.8-14.4 [facility] Comment on above: Performed By: #### C DP ####[place], [place] [address])[phone] Director: Ramiro Mark MD Hematocrit (Bld) [Volume fraction] 26.1 % Low 40.7-50.3 [facility] Comment on above: Performed By: #### C DP ####[place], [place] [address])[phone] Director: Ramiro Mark MD Hemoglobin (Bld) [Mass/Vol] 8.8 g/dL Low 13.0-17.0 [facility] Comment on above: Performed By: #### C DP ####[address] [address])[phone] Director: Ramiro Mark MD Immature granulocytes/100 WBC (Bld) 1 % High 0 [facility] Comment on above: Performed By: #### C DP ####[place], [place] [address])[phone] Director: Ramiro Mark MD Lymphocytes (Bld) [#/Vol] 1.42 10*3/uL Normal 1.10-3.70 [facility] Comment on above: Performed By: #### C DP ####[address] [address])[phone] Director: Ramiro Mark MD Lymphocytes/100 WBC (Bld) 8 % Low 24-43 [facility] Comment on above: Performed By: #### C DP ####[address] [id number])[phone] Director: Ramiro Mark MD MCH (RBC) [Entitic mass] 28.6 pg Normal 25.2-33.5 [facility] Comment on above: Performed By: #### C DP ####[address] [id number])[phone] Director: Ramiro Mark MD MCHC (RBC) [Mass/Vol] 33.7 g/dL Normal 28.4-34.8 [facility] Comment on above: Performed By: #### C DP ####[address] [id number])[phone] Director: Ramiro Mark MD MCV (RBC) [Entitic vol] 84.7 fL Normal 82.6-102.9 [facility] Comment on above: Performed By: #### C DP ####[address] [phone])[phone] Director: Ramiro Mark MD Monocytes (Bld) [#/Vol] 0.81 10*3/uL Normal 0.10-1.20 [facility] Comment on above: Performed By: #### C DP ####[address] [id number])[phone] Director: Ramiro Mark MD Monocytes/100 WBC (Bld) 5 % Normal 3-12 [facility] Comment on above: Performed By: #### C DP ####[address] [phone])[phone] Director: Ramiro Mark MD Neutrophil (Seg) 86 % High 36-65 [facility] Comment on above: Performed By: #### C DP ####[address] [phone])[phone] Director: Ramiro Mark MD NRBC Automated 0.0 per 100 WBC Normal 0.0 [facility] Comment on above: Performed By: #### C DP ####[address] [phone] Director: Ramiro Mark MD Platelet mean volume (Bld) [Entitic vol] 10.6 fL Normal 8.1-13.5 [facility] Comment on above: Performed By: #### C DP ####[address] [address])[phone] Director: Ramiro Mark MD Platelets (Bld) [#/Vol] 214 10*3/uL Normal 138-453 [facility] Comment on above: Performed By: #### C DP ####[place], [place] [address])[phone] Director: Ramiro Mark MD RBC (Bld) [#/Vol] 3.08 10*6/uL Low 4.21-5.77 [facility] Comment on above: Performed By: #### C DP ####[place] [address]([facility])[phone] Director: Ramiro Mark MD WBC (Bld) [#/Vol] 17.6 10*3/uL High 3.5-11.3 [facility] Comment on above: Performed By: #### C DP ####[place], [place] [address])[phone] Director: Ramiro Mark MD Calcium, Ionicon 09-29-2024 Calcium [Moles/Vol] 1.20 mmol/L Normal 1.13-1.33 [facility] Comment on above: Performed By: #### I OCAL ####[address] [phone] Director: Ramiro Mark MD Calcium, Ionizedon Calcium.ionized (Bld) [Moles/Vol] 1.20 mmol/L 1.13 - 1.33 mmol/L [facility] Cardiac echo study Procedure Ordered By: Kika Raymond on 09-29-2024 Ao Root Index 1.71 cm/m2 [employer] Phone: Aortic Root 3.4 cm [employer] Phone: AV Area by Peak Velocity 2.6 cm2 [employer] Phone: AV Area by VTI 2.6 cm2 [facility] Phone: AV Mean Gradient 4 mmHg [employer] Phone: AV Mean Velocity 0.9 m/s [employer] Phone: AV Peak Gradient 7 mmHg [employer] Phone: AV Peak Velocity 1.4 m/s [employer] Phone: AV Velocity Ratio 0.71 [employer] Phone: AV VTI 26.7 cm [employer] Phone: EZIO/BSA Peak Velocity 1.3 cm2/m2 [employer] Phone: EZIO/BSA VTI 1.3 cm2/m2 [employer] Phone: Body surface area Derived from formula 2 m2 [employer] Phone: E/E' Lateral 8.87 [employer] Phone: E/E' Ratio (Averaged) 9.20 [employer] Phone: E/E' Septal 9.54 [employer] Phone: EF BP 65 % 55 - 100 % [employer] Phone: Fractional Shortening 2D 43 % 28 - 44 % [employer] Work Phone: Global Longitudinal Strain -16.7 % [employer] Work Phone: Interpretation and review of laboratory results Abnormal [employer] Work Phone: IVSd 1.5 cm Abnormal 0.6 - 1.0 cm [employer] Phone: LA Area 2C 15.4 cm2 [employer] Work Phone: LA Area 4C 15.4 cm2 [employer] Work Phone: LA Diameter 2.9 cm [employer] Phone: LA Major [place] 4.7 cm [employer] Phone: LA Minor [place] 5.1 cm [employer] Phone: LA Size Index 1.46 cm/m2 [employer] Work Phone: LA Volume BP 36 mL 18 - 58 mL [employer] Work Phone: LA Volume Index BP 18 ml/m2 16 - 34 ml/m2 [employer] Work Phone: LA Volume Index MOD A2C 17 ml/m2 16 - 34 ml/m2 [employer] Work Phone: LA Volume Index MOD A4C 19 ml/m2 16 - 34 ml/m2 [employer] Work Phone: LA Volume MOD A2C 33 mL 18 - 58 mL [employer] Work Phone: LA Volume MOD A4C 37 mL 18 - 58 mL [employer] Work Phone: LA/AO Root Ratio 0.85 Bon [employer] Work Phone: LV E' Lateral Velocity 9.36 cm/s [employer] Work Phone: LV E' Septal Velocity 8.70 cm/s [employer] Work Phone: LV EDV A2C 65 mL [employer] Work Phone: LV EDV A4C 80 mL [employer] Work Phone: LV EDV Index A2C 33 mL/m2 [employer] Work Phone: LV EDV Index A4C 40 mL/m2 [employer] Work Phone: LV Ejection Fraction A2C 66 % [employer] Work Phone: LV Ejection Fraction A4C 67 % [employer] Work Phone: LV ESV A2C 22 mL [employer] Work Phone: LV ESV A4C 27 mL [employer] Work Phone: LV ESV Index A2C 11 mL/m2 [employer] Work Phone: LV ESV Index A4C 14 mL/m2 [employer] Work Phone: LV Mass 2D 220.7 g 88 - 224 g [employer] Work Phone: LV Mass 2D Index 110.9 g/m2 49 - 115 g/m2 [employer] Work Phone: LV RWT Ratio 0.70 [employer] Work Phone: LVIDd 4.0 cm Abnormal 4.2 - 5.9 cm [employer] Work Phone: LVIDd Index 2.01 cm/m2 [employer] Work Phone: LVIDs 2.3 cm [employer] Work Phone: LVIDs Index 1.16 cm/m2 [employer] Work Phone: LVOT Area 3.5 cm2 [employer] Work Phone: LVOT Diameter 2.1 cm [employer] Work Phone: LVOT Mean Gradient 2 mmHg [facility] [employer] Work Phone: LVOT Peak Gradient 4 mmHg [employer] Work Phone: LVOT Peak Velocity 1.0 m/s [employer] Work Phone: LVOT Stroke Volume Index 34.8 mL/m2 [facility] [employer] Work Phone: LVOT SV 69.2 ml [facility] [employer] Work Phone: LVOT VTI 20.0 cm [facility] [employer] Work Phone: LVOT:AV VTI Index 0.75 [facility] [employer] Work Phone: LVPWd 1.4 cm Abnormal 0.6 - 1.0 cm [employer] Work Phone: MV A Velocity 0.75 m/s [employer] Work Phone: MV Area by VTI 3.0 cm2 [place] [employer] Work Phone: MV E Velocity 0.83 m/s [employer] Work Phone: MV E Wave Deceleration Time 134.0 ms [employer] Work Phone: MV E/A 1.11 [facility] [employer] Work Phone: MV Max Velocity 1.1 m/s [facility] [employer] Work Phone: MV Mean Gradient 2 mmHg [facility] [employer] Work Phone: MV Mean Velocity 0.7 m/s [facility] [employer] Work Phone: MV Peak Gradient 5 mmHg [facility] [employer] Work Phone: MV VTI 23.2 cm [facility] [employer] Work Phone: MV:LVOT VTI Index 1.16 [facility] [employer] Work Phone: PV Max Velocity 1.1 m/s [facility] [employer] Work Phone: PV Peak Gradient 5 mmHg [facility] [employer] Work Phone: RA Area 4C 12.4 cm2 [facility] [employer] Work Phone: RA Volume 24 ml Bon [employer] Work Phone: RA Volume Index A4C 12 mL/m2 [facility] [employer] Work Phone: RV Basal Dimension 2.9 cm [facility] [employer] Work Phone: RV Free Wall Peak S' 13.1 cm/s [place] [employer] Work Phone: TAPSE 3.0 cm 1.7 cm [place] [facility] [employer] Work Phone: Sharon [employer] Work Phone: Cardiac echo study Procedure on 09-29-2024 [facility] CV CPACS Radiology Study observation (narrative) [employer] EKG 12 Leadon 09-29-2024 Atrial Rate 111 BPM [employer] P [place] 79 degrees [employer] P-R Interval 166 ms [employer] Q-T Interval 336 ms [employer] QRS Duration 82 ms [employer] QTc Calculation (Bazett) 456 ms ePrep R [place] 68 degrees ePrep T [place] 68 degrees e[employer] Ventricular Rate 111 BPM [facility] [employer] MHPN STV MUSE [facility] Glucose (POC)on 09-29-2024 Glucose [Mass/Vol] 189 mg/dL High 74-100 [facility] Glucose,Whole Bloodon 2023 Glucose [Mass/Vol] 203 mg/dL High 75-110 [facility] Glucose [Mass/Vol] 289 mg/dL High 75-110 [facility] Glucose [Mass/Vol] 227 mg/dL High 75-110 [facility] Glucose [Mass/Vol] 229 mg/dL High 75-110 [facility] Glucose [Mass/Vol] 149 mg/dL High 75-110 [facility] Glucose [Mass/Vol] 187 mg/dL High 75-110 [facility] Glucose [Mass/Vol] 187 mg/dL High 75-110 [facility] Glucose [Mass/Vol] 214 mg/dL High 75-110 [facility] Glucose [Mass/Vol] 222 mg/dL High 75-110 [facility] Glucose [Mass/Vol] 205 mg/dL High 75-110 [facility] Glucose [Mass/Vol] 140 mg/dL High 75-110 [facility] Heparin Anti-Xaon 09-29-2024 Heparin Anti-Xa 0.51 IU/L Normal [facility] Comment on above: Result Comment: This test has not been validated or calibrated for therapies other than unfractionated heparin.Interpretation of the result in relation to other therapies must be done with caution and within clinical context. Performed By: #### P HO, MG, BMP, HEPXA ####[employer] [address] [place], [place] [address] Lab Director: Ramiro Mark MD Heparin Anti-Xa 0.28 IU/L Normal [facility] Comment on above: Result Comment: This test has not been validated or calibrated for therapies other than unfractionated heparin.Interpretation of the result in relation to other therapies must be done with caution and within clinical context. Performed By: #### H EPXA ####[facility] [address] [place] [address] Lab Director: Ramiro Mark MD Heparin Anti-Xa 0.44 IU/L Normal [facility] Comment on above: Result Comment: This test has not been validated or calibrated for therapies other than unfractionated heparin.Interpretation of the result in relation to other therapies must be done with caution and within clinical context. Performed By: #### H EPXA ####[facility] [address] [place] [address] Lab Director: Rmairo Mark MD Lactic Acid (POC)on 09-29-20 24 Lactate [Moles/Vol] 1.4 mmol/L High 0.56-1.39 [facility] Lactic Acid, POCon 4 POC Lactic Acid 1.4 mmol/L High 0.56 - 1.39 mmol/L [facility] MRSA DNA Probe, Nasalon 09-16 MRSA, DNA, Nasal Negative NEGATIVE [facility] Specimen Description .NASAL SWAB [facility] MRSA, DNA, Nasalon MRSA, DNA, Nasal Negative Normal NEG [facility] Comment on above: Result Comment: NEGA TIVE: MRSA DNA not detected by nucleic acid amplification.Results should be used as an adjunct to nosocomial control efforts to identify patients needing enhanced precautions.The test is not intended to identify patients with staphylococcal infections. Results should not be used to guide or monitor treatment for MRSA infections. Performed By: #### M RSANO ####[facility] HospitalDynamic Organic LightPdigvrbbbbns[address] [place] [address] Lab Director: Ramiro Mark MD Magnesiumon 09-29-2024 Magnesium [Mass/Vol] 2.2 mg/dL 1.6 - 2 .6 mg/dL [facility] Magnesium [Mass/Vol] 2.2 mg/dL Normal 1.6-2.6 [facility] Comment on above: Performed By: #### P HO, MG, BMP, HEPXA ####Search to Phone[address] [place] [address] Lab Director: Ramiro Mark MD Magnesium [Mass/Vol] 1.6 mg/dL Normal 1.6-2.6 [facility] Comment on above: Performed By: #### P HEP, BMP, ANAX, PE, FKLLC, CHELO, MG ####Search to [address] [place] [address] Lab Director: Ramiro Mark MD Magnesium [Mass/Vol] 1.8 mg/dL 1.6 - 2 .6 mg/dL [facility] Magnesium [Mass/Vol] 1.8 mg/dL Normal 1.6-2.6 [facility] Comment on above: Performed By: #### P MG [facility] ####[facility] [address] [place] [address] Lab Director: Ramiro Mark MD No Panel Informationon 09-29 [facility] Interpretation and review of laboratory results Abnormal [facility] POC Glucose Fingerstickon Glucose [Mass/Vol] 203 mg/dL High 75 - 110 mg/dL [facility] Interpretation and review of laboratory results Abnormal [facility] Glucose [Mass/Vol] 289 mg/dL High 75 - 110 mg/dL [facility] Interpretation and review of laboratory results Abnormal [facility] Glucose [Mass/Vol] 227 mg/dL High 75 - 110 mg/dL [facility] Interpretation and review of laboratory results Abnormal [facility] Glucose [Mass/Vol] 229 mg/dL High 75 - 110 mg/dL [facility] Interpretation and review of laboratory results Abnormal [facility] Glucose [Mass/Vol] 149 mg/dL High 75 - 110 mg/dL [facility] Interpretation and review of laboratory results Abnormal [facility] Glucose [Mass/Vol] 187 mg/dL High 75 - 110 mg/dL [facility] Interpretation and review of laboratory results Abnormal [facility] Glucose [Mass/Vol] 187 mg/dL High 75 - 110 mg/dL [facility] Interpretation and review of laboratory results Abnormal [facility] Glucose [Mass/Vol] 214 mg/dL High 75 - 110 mg/dL [facility] Interpretation and review of laboratory results Abnormal [facility] Glucose [Mass/Vol] 222 mg/dL High 75 - 110 mg/dL [facility] Interpretation and review of laboratory results Abnormal [facility] Glucose [Mass/Vol] 205 mg/dL High 75 - 110 mg/dL [facility] Interpretation and review of laboratory results Abnormal [facility] Glucose [Mass/Vol] 140 mg/dL High 75 - 110 mg/dL [facility] Interpretation and review of laboratory results Abnormal [facility] POCT Glucoseon 09-29-2024 Glucose [Mass/Vol] 189 mg/dL High 74 - 100 mg/dL [facility] Phosphoruson 09-29-2024 Phosphate [Mass/Vol] 4.5 mg/dL 2.5 - 4 .5 mg/dL [facility] Phosphate [Mass/Vol] 3.4 mg/dL 2.5 - 4 .5 mg/dL [facility] Phosphate [Mass/Vol] 4.2 mg/dL 2.5 - 4 .5 mg/dL [facility] Phosphorus, Inorg.on 024 Phosphorus, Inorg. 4.5 mg/dL Normal 2.5-4.5 [facility] Comment on above: Performed By: #### P HO, MG, BMP, HEPXA ####[facility] [address] [place], [place] [id number] lab Director: Ramiro Mark MD Phosphorus, Inorg. 3.4 mg/dL Normal 2.5-4.5 [facility] Comment on above: Performed By: #### P HEP, BMP, ANAX, PE, FKLLC, CHELO, MG ####[facility] [address] [place], [place] [id number] lab Director: Ramiro Mark MD Phosphorus, Inorg. 4.2 mg/dL Normal 2.5-4.5 [facility] Comment on above: Performed By: #### P HO, MG, BMP ####[facility] [address] [place], [place] [id number] Lab Director: Ramiro Mark MD US Kidneyon 09-29-2024 MHPN RIS CONSOLIDATED PN RIS CONSOLIDATED [facility] KidneyOrdered By: Isai pal on 09-29-2024 [facility] Work Phone: US RENAL COMPLETEon 09-29-20 US RENAL COMPLETE Normal [facility] APTTon 09-28-2024 aPTT Coag (Bld) [Time] 20.2 s Low [facility] Interpretation and review of laboratory results Abnormal [facility] aPTT Coag (Bld) [Time] 20.2 s Low 23.0-36.5 [facility] Comment on above: Result Comment: IV H eparin Therapy Range:66.0-92.0 sec Performed By: #### H EPXA, PTT, CBC, PT ####[facility] [address] [place], [place] [id number] Lab Director: Ramiro Mark MD Ammoniaon 09-28-2024 Ammonia (P) [Moles/Vol] 27 umol/L - umol/L [facility] Ammonia (P) [Moles/Vol] 27 umol/L Normal [facility] Comment on above: Performed By: #### L ACTIC #### [facility] [address] [address] Custom Clothier: Ramiro Santillan MD Anti-Xa, Unfractionated Hepa rinon 09-28-2024 Anti-XA Unfrac Heparin <0.10 IU/L [facility] Arterial Bld Gas,POCon 09-28 Jody Test Positive Normal [facility] FIO2 40.0 Normal [facility] HCO3 (Bld) [Moles/Vol] 25.6 mmol/L Normal 21.0-28.0 [facility] Oxygen saturation in Blood 99.7 % High 94.0-98.0 [facility] pCO2, Arterial 42.0 mm Hg Normal 35.0-48.0 [facility] pH, Arterial 7.394 Normal 7.350-7.450 [facility] pO2, Arterial 201.7 mm Hg High 83.0-108.0 [facility] Positive Base Excess (calc) 0.6 mmol/L Normal 0.0-3.0 [facility] Site Drawn Right Radial Artery Normal [facility] Arterial Blood Gas, POCon Jody Test Positive [facility] FIO2 40.0 [facility] HCO3 (Bld) [Moles/Vol] 25.6 mmol/L 21.0 - 28.0 mmol/L [facility] Interpretation and review of laboratory results Abnormal [facility] Oxygen saturation in Blood 99.7 % High 94.0 - 98.0 % [facility] POC pCO2 42.0 [facility] POC pH 7.394 7.350 - 7.450 [facility] POC PO2 201.7 High [facility] Positive Base Excess, Art 0.6 mmol/L 0.0 - 3.0 mmol/L [facility] Sample Site Right Radial Artery [facility] Arterial Blood Gaseson 09-28 Jody Test YES Normal [facility] Comment on above: Performed By: #### L ACTIC #### [facility] [address] [place] [address] Custom Clothier: Ramiro Santillan MD Body Temp. 37.0 [facility] Comment on above: Performed By: #### L ACTIC #### [facility] [address] [place] [address] Custom Clothier: Ramiro Santillan MD FIO2 21 [facility] Comment on above: Performed By: #### L ACTIC #### [facility] [address] [place] [address] Custom Clothier: Ramiro Santillan MD HCO3 (Bld) [Moles/Vol] 20.6 mmol/L Low 22-26 M [facility] Comment on above: Performed By: #### L ACTIC #### [facility] [address] [place] [address] Custom Clothier: Ramiro Santillan MD Negative Base Excess 3.7 mmol/L High 0.0-2.0 [facility] Comment on above: Performed By: #### L ACTIC #### [facility] [address] [place], [place] [id number] Custom Clothier: Ramiro Santillna MD O2 Device/Flow/% ROOM AIR Normal [facility] Comment on above: Performed By: #### L ACTIC #### [facility] [address] [place] [address] Custom Clothier: Ramiro Santillan MD Oxygen (Bld) [Partial pressure] 72.2 mm[Hg] Low 80.0-100.0 [facility] Comment on above: Performed By: #### L ACTIC #### [facility] [address] [place], [place] [id number] Custom Clothier: Ramiro Santillan MD Oxygen saturation in Blood 94.5 % Low 95-98 [facility] Comment on above: Performed By: #### L ACTIC #### [facility] [address] [place], [place] [id number] Custom Clothier: Ramiro Santillan MD pCO2 35.2 mmHg Normal 35-45 [facility] Comment on above: Performed By: #### L ACTIC #### [facility] [address] [place], [place] [id number] Custom Clothier: Ramiro Santillan MD pCO2 Adj'd for Temp 35.2 Normal 35.0-45.0 [facility] Comment on above: Performed By: #### L ACTIC #### [facility] [address] [place] [address] Custom Clothier: Ramiro Santillan MD pH (Bld) 7.385 [pH] Normal 7.35-7.45 [facility] Comment on above: Performed By: #### L ACTIC #### [facility] [address] [place] [address] Custom Clothier: Ramiro Santillan MD pH Adjst'd for Temp. 7.385 Normal 7.350-7.450 [facility] Comment on above: Performed By: #### L ACTIC #### [facility] [address] [place] [address] Custom Clothier: aRmiro Santillan MD pO2 Adjst'd for Temp 72.2 mmHg Low 80.0-100.0 [facility] Comment on above: Performed By: #### L ACTIC #### [address] [place] [address] Custom Clothier: Ramiro Santillan MD Site Drawn Left Radial Artery Normal [facility] Comment on above: Performed By: #### L ACTIC #### [address] [place] [address] Custom Clothier: Ramiro Santillan MD Basic Metab w/rfx MGon 09-28 Anion gap [Moles/Vol] 12 mmol/L Normal 9-16 [facility] Comment on above: Performed By: #### P RCAL, CRP, MYCM, GLYHGB, TROPI, SED, CDP, LACTIC, IOCAL, BMPX ####[facility] [address] [place], [place] [id number] Lab Director: Ramiro Mark MD#### AGLYCO ####[facility] [address] [place] [address] Lab Director: Wil Swanson MD Calcium [Mass/Vol] 8.5 mg/dL Low 8.6-10.4 [facility] Comment on above: Performed By: #### P RCAL, CRP, MYCM, GLYHGB, TROPI, SED, CDP, LACTIC, IOCAL, BMPX ####[facility] [address] [place] [address] Lab Director: Ramiro Mark MD#### AGLYCO ####[facility] [address] [place], [place] [id number] Lab Director: Wil Swanson MD Chloride [Moles/Vol] 103 mmol/L Normal 98-107 [facility] Comment on above: Performed By: #### P RCAL, CRP, MYCM, GLYHGB, TROPI, SED, CDP, LACTIC, IOCAL, BMPX ####[facility] [address] [place] [address] Lab Director: Ramiro Mark MD#### AGLYCO ####[facility] [address] [place] [id number] Lab Director: Wil Swanson MD CO2 [Moles/Vol] 22 mmol/L Normal 20-31 [facility] Comment on above: Performed By: #### P RCAL, CRP, MYCM, GLYHGB, TROPI, SED, CDP, LACTIC, IOCAL, BMPX ####[facility] [address] [place] [address] Lab Director: Ramiro Mark MD#### AGLYCO ####[facility] [address] [place] [id number] Lab Director: Wil Swanson MD Creatinine [Mass/Vol] 2.3 mg/dL High 0.7-1.2 [facility] Comment on above: Performed By: #### P RCAL, CRP, MYCM, GLYHGB, TROPI, SED, CDP, LACTIC, IOCAL, BMPX ####[facility] [address] [place] [address] Lab Director: Ramiro Mark MD#### AGLYCO ####[facility] [address] [place] [address] Lab Director: Wil Swanson MD GFR/1.73 sq M.predicted among non-blacks MDRD (S/P/Bld) [Vol rate/Area] 34 mL/min/{1.73_m2} Low >60 [facility] Comment on above: Result Comment: Thes [...] GLYHGB, TROPI, SED, CDP, LACTIC, IOCAL, BMPX ####[place] [address] Lab Director: Ramiro Mark MD#### AGLYCO ####[facility] [address] [place] [id number] Lab Director: Wil Swanson MD Glucose [Mass/Vol] 316 mg/dL High 74-99 [facility] Comment on above: Performed By: #### P RCAL, CRP, MYCM, GLYHGB, TROPI, SED, CDP, LACTIC, IOCAL, BMPX ####[facility] [address] [place] [address] Lab Director: Ramiro Mark MD#### AGLYCO ####[facility] [address] [place] [id number] Lab Director: Wil Swanson MD Potassium [Moles/Vol] 4.2 mmol/L Normal 3.7-5.3 [facility] Comment on above: Performed By: #### P RCAL, CRP, MYCM, GLYHGB, TROPI, SED, CDP, LACTIC, IOCAL, BMPX ####[facility] [address] [place] [address] Lab Director: Ramiro Mark MD#### AGLYCO ####[facility] [address] [place], [place] [id number] lab Director: Wil Swanson MD Sodium [Moles/Vol] 137 mmol/L Normal 136-145 [facility] Comment on above: Performed By: #### P RCAL, CRP, MYCM, GLYHGB, TROPI, SED, CDP, LACTIC, IOCAL, BMPX ####[facility] [address] [place], [place] [id number] Lab Director: Ramiro Mark MD#### AGLYCO ####[facility] [address] [place] [address] lab Director: Wil Swanson MD Urea nitrogen [Mass/Vol] 41 mg/dL High 6-20 [facility] Comment on above: Performed By: #### P RCAL, CRP, MYCM, GLYHGB, TROPI, SED, CDP, LACTIC, IOCAL, BMPX ####[facility] F[address]lg3378 [place] [address] lab Director: Ramiro Mark MD#### AGLYCO ####[facility] [address] [place] [id number] Lab Director: Wil Swanson MD Basic Metabolic Panel 12- Anion gap [Moles/Vol] 11 mmol/L 9 - 16 mmol/L [facility] Calcium [Mass/Vol] 7.6 mg/dL Low 8.6 - 10. 4 mg/dL [facility] Chloride [Moles/Vol] 102 mmol/L 98 - 10 7 mmol/L [facility] CO2 [Moles/Vol] 21 mmol/L 20 - 31 mmol/L [facility] Creatinine [Mass/Vol] 2.2 mg/dL High 0.7 - 1.2 mg/dL [facility] Est, Glom Filt Rate 36 Low - PINF [facility] Glucose [Mass/Vol] 415 mg/dL Critically high 74 - 9 9 mg/dL [facility] Interpretation and review of laboratory results Abnormal [facility] Potassium [Moles/Vol] 3.8 mmol/L 3.7 - 5.3 mmol/L [facility] Sodium [Moles/Vol] 134 mmol/L Low 136 - 145 mmol/L [facility] Urea nitrogen [Mass/Vol] 37 mg/dL High 6 - 20 mg/dL [facility] Anion gap [Moles/Vol] 10 mmol/L 9 - 16 mmol/L [facility] Calcium [Mass/Vol] 8.5 mg/dL Low 8.6 - 10. 4 mg/dL [facility] Chloride [Moles/Vol] 104 mmol/L 98 - 10 7 mmol/L [facility] CO2 [Moles/Vol] 22 mmol/L 20 - 31 mmol/L [facility] Creatinine [Mass/Vol] 2.3 mg/dL High 0.7 - 1.2 mg/dL [facility] Est, Glom Filt Rate 34 Low - PINF [facility] Glucose [Mass/Vol] 241 mg/dL High 74 - 99 mg/dL [facility] Potassium [Moles/Vol] 3.9 mmol/L 3.7 - 5.3 mmol/L [facility] Sodium [Moles/Vol] 136 mmol/L 136 - 145 mmol/L [facility] Urea nitrogen [Mass/Vol] 40 mg/dL High 6 - 20 mg/dL [facility] Basic Metabolic Panel w/ Ref jose to MGon 09-28-2024 Anion gap [Moles/Vol] 12 mmol/L 9 - 16 mmol/L [facility] Calcium [Mass/Vol] 8.5 mg/dL Low 8.6 - 10. 4 mg/dL [facility] Chloride [Moles/Vol] 103 mmol/L 98 - 10 7 mmol/L [facility] CO2 [Moles/Vol] 22 mmol/L 20 - 31 mmol/L [facility] Creatinine [Mass/Vol] 2.3 mg/dL High 0.7 - 1.2 mg/dL [facility] Est, Glom Filt Rate 34 Low - PINF [facility] Glucose [Mass/Vol] 316 mg/dL High 74 - 99 mg/dL [facility] Potassium [Moles/Vol] 4.2 mmol/L 3.7 - 5.3 mmol/L [facility] Sodium [Moles/Vol] 137 mmol/L 136 - 145 mmol/L [facility] Urea nitrogen [Mass/Vol] 41 mg/dL High 6 - 20 mg/dL [facility] Basic Metabolic Profon 09-28 Anion gap [Moles/Vol] 11 mmol/L Normal 9-16 [facility] Comment on above: Performed By: #### P HO, MG, BMP, LACTIC ####[facility] [address] [place], [place] [id number] Lab Director: Ramiro Mark MD Calcium [Mass/Vol] 7.6 mg/dL Low 8.6-10.4 [facility] Comment on above: Performed By: #### P HO, MG, BMP, LACTIC ####[facility] [address] [place] [address] Lab Director: Ramiro Mark MD Chloride [Moles/Vol] 102 mmol/L Normal 98-107 [facility] Comment on above: Performed By: #### P HO, MG, BMP, LACTIC ####[facility] X[address]pqrrbsd5398 [place] [address] Lab Director: Ramiro Mark MD CO2 [Moles/Vol] 21 mmol/L Normal 20-31 [facility] Comment on above: Performed By: #### P HO, MG, BMP, LACTIC ####[facility] [address]xc5754 [place] [address] Lab Director: Ramiro Mark MD Creatinine [Mass/Vol] 2.2 mg/dL High 0.7-1.2 [facility] Comment on above: Performed By: #### P HO, MG, BMP, LACTIC ####[facility] [address] [place] [address] Lab Director: Ramiro Mark MD GFR/1.73 sq M.predicted among non-blacks MDRD (S/P/Bld) [Vol rate/Area] 36 mL/min/{1.73_m2} Low >60 [facility] Comment on above: Result Comment: Thes [...] #### P HO, MG, BMP, LACTIC ####[facility] [address] [place] [address])[phone] Director: Ramiro Mark MD Glucose [Mass/Vol] 415 mg/dL Critically high 74-[address] [facility] Comment on above: Performed By: #### P HO, MG, BMP, LACTIC ####[facility] [address] [place] [address])[phone] Director: Ramiro Mark MD Potassium [Moles/Vol] 3.8 mmol/L Normal 3.7-5.3 [facility] Comment on above: Performed By: #### P HO, MG, BMP, LACTIC ####[facility] [address]r9480 [place] [address] Lab Director: Ramiro Mark MD Sodium [Moles/Vol] 134 mmol/L Low 136-145 [facility] Comment on above: Performed By: #### P HO, MG, BMP, LACTIC ####[facility] [address]2394 [place] [address] Lab Director: Ramiro Mark MD Urea nitrogen [Mass/Vol] 37 mg/dL High 6-20 [facility] Comment on above: Performed By: #### P HO, MG, BMP, LACTIC ####[facility] P[address] [place], [place] [address])[phone] Director: Ramiro Mark MD Anion gap [Moles/Vol] 10 mmol/L Normal 9-16 [facility] Comment on above: Performed By: #### P HO, MG, BMP, TROPI, LACTIC ####[facility] [address]afzxp[address] [place], [place] [address])[phone] Director: Ramiro Mark MD Calcium [Mass/Vol] 8.5 mg/dL Low 8.6-10.4 [facility] Comment on above: Performed By: #### P HO, MG, BMP, TROPI, LACTIC ####[address] [address])[phone] Director: Ramiro Mark MD Chloride [Moles/Vol] 104 mmol/L Normal 98-107 [facility] Comment on above: Performed By: #### P HO, MG, BMP, TROPI, LACTIC ####[facility] [address] [place], [place] [id number])[phone] Director: Ramiro Mrak MD CO2 [Moles/Vol] 22 mmol/L Normal 20-31 [facility] Comment on above: Performed By: #### P HO, MG, BMP, TROPI, LACTIC ####[facility] [address]jmmb[address] [place], [place] [address])[phone] Director: Ramiro Mark MD Creatinine [Mass/Vol] 2.3 mg/dL High 0.7-1.2 [facility] Comment on above: Performed By: #### P HO, MG, BMP, TROPI, LACTIC ####[facility] [address] [place], [place] [address])[phone] Director: Ramiro Mark MD GFR/1.73 sq M.predicted among non-blacks MDRD (S/P/Bld) [Vol rate/Area] 34 mL/min/{1.73_m2} Low >60 [facility] Comment on above: Result Comment: Thes [...] P HO, MG, BMP, TROPI, LACTIC ####[facility] [address] [place] [address] Lab Director: Ramiro Mark MD Glucose [Mass/Vol] 241 mg/dL High 74-99 [facility] Comment on above: Performed By: #### P HO, MG, BMP, TROPI, LACTIC ####[facility] [address] [place] [address] Lab Director: Ramiro Mark MD Potassium [Moles/Vol] 3.9 mmol/L Normal 3.7-5.3 [facility] Comment on above: Result Comment: Spec imen hemolysis has exceeded the interference as defined by Jaime. Value may be falsely increased. Suggest recollection if clinically indicated. Performed By: #### P HO, MG, BMP, TROPI, LACTIC ####[employer] [address] [place] [address] Lab Director: Ramiro Mark MD Sodium [Moles/Vol] 136 mmol/L Normal 136-145 [facility] Comment on above: Performed By: #### P HO, MG, BMP, TROPI, LACTIC ####[facility] [address] [place] [address] Lab Director: Ramiro Mark MD Urea nitrogen [Mass/Vol] 40 mg/dL High 6-20 [facility] Comment on above: Performed By: #### P HO, MG, BMP, TROPI, LACTIC ####[facility] [place] [address] Lab Director: Ramiro Mark MD GFR/1.73 sq M.predicted among non-blacks MDRD (S/P/Bld) [Vol rate/Area] 56 mL/min/{1.73_m2} Low >60 [facility] Comment on above: Result Comment: These [...] secretion. Performed By: #### B MP #### [facility] [address] [place] [address] [place] [address] Custom Clothier: Ramiro Santillan MD Anion gap [Moles/Vol] 15 mmol/L Normal 9-16 [facility] Comment on above: Performed By: #### B MP #### [facility] [address] [place] [address] Custom Clothier: Ramiro Santillan MD BUN/CRE Ratio 22 High 9-20 [facility] Comment on above: Performed By: #### B MP #### [facility] [address] [place] [address] [place] [address] Custom Clothier: Ramiro Santillan MD Calcium [Mass/Vol] 6.1 mg/dL Low 8.6-10.4 [facility] Comment on above: Performed By: #### B MP #### [facility] [address] [place] [address] Custom Clothier: Ramiro Santillan MD Chloride [Moles/Vol] 99 mmol/L Normal 98-107 [facility] Comment on above: Performed By: #### B MP #### [facility] [address] [place] [address] [place] [id number] Custom Clothier: Ramiro Santillan MD CO2 [Moles/Vol] 15 mmol/L Low 20-31 [facility] Comment on above: Performed By: #### B MP #### [facility] [address] [place] [id number] Custom Clothier: Ramiro Santillan MD Creatinine [Mass/Vol] 1.5 mg/dL High 0.70-1.20 [facility] Comment on above: Performed By: #### B MP #### [facility] [address] [place] [id number] Custom Clothier: Ramiro Santillan MD Glucose [Mass/Vol] 657 mg/dL Critically high 74-99 [facility] Comment on above: Performed By: #### B MP #### [facility] [address] [place], [place] [id number] Custom Clothier: Ramiro Santillan MD Potassium [Moles/Vol] 3.6 mmol/L Low 3.7-5.3 [facility] Comment on above: Result Comment: Spec imen hemolysis has exceeded the interference as defined by Jaime. Value may be falsely increased. Suggest recollection if clinically indicated. Performed By: #### B MP #### [facility] [address] [place], [place] [id number] Custom Clothier: Ramiro Santillan MD Sodium [Moles/Vol] 129 mmol/L Low 136-145 [facility] Comment on above: Performed By: #### B MP #### [facility] [address] [place], [place] [id number] Custom Clothier: Ramiro Santillan MD Urea nitrogen [Mass/Vol] 33 mg/dL High 6-20 [facility] Comment on above: Performed By: #### B MP #### [facility] [address] [place], [place] [phone] Custom Clothier: Ramiro Santillan MD Beta Hydroxybutyrateon 09-28 Beta Hydroxybutyrate 2.64 mmol/L High 0.02-0.27 [facility] Comment on above: Performed By: #### B H #### [facility] [address] [place] [address] Custom Clothier: Ramiro Santillan MD Beta-Hydroxybutyrateon 09-28 Beta hydroxybutyrate [Mass/Vol] 2.64 mmol/L High 0.02 - 0.27 mmol/L [facility] Interpretation and review of laboratory results Abnormal [facility] Blood Gas, Arterialon 2023 Arterial patency Wrist artery --pre arterial puncture YES [facility] Body site Left Radial Artery [facility] HCO3 (Bld) [Moles/Vol] 20.6 mmol/L Low 22 - 26 mmol/L [facility] Interpretation and review of laboratory results Abnormal [facility] Negative Base Excess, Art 3.7 mmol/L High 0.0 - 2.0 mmol/L [facility] Oxygen gas flow Oxygen delivery system ROOM AIR [facility] Oxygen saturation in Blood 94.5 % Low 95 - 98 % [facility] Oxygen/Inspired gas Respiratory system --on ventilator 21 [facility] pCO2, Art, Temp Adj 35.2 35.0 - 45.0 [facility] pCO2, Arterial 35.2 [facility] pH, Art, Temp Adj 7.385 7.350 - 7.450 [facility] pH, Arterial 7.385 7.35 - 7.45 [facility] pO2, Art, Temp Adj 72.2 Low [facility] pO2, Arterial 72.2 Low [facility] Blood Gas, Venouson 09-28-20 Arterial patency Wrist artery --pre arterial puncture NOT APPLICABLE [facility] HCO3 (Bld) [Moles/Vol] 21.0 mmol/L Low 24.0 - 30.0 mmol/L [facility] Interpretation and review of laboratory results Abnormal [facility] Negative Base Excess, Mc 4.3 mmol/L High 0.0 - 2.0 mmol/L [facility] Oxygen gas flow Oxygen delivery system VENTILATOR [facility] Oxygen saturation in Blood 99.0 % High 60.0 - 85.0 % [facility] Oxygen/Inspired gas Respiratory system --on ventilator 35 [facility] pCO2, Mc 39.8 [facility] pCO2, Mc, Temp Adj 39.8 [facility] pH, Mc 7.341 7.32 - 7.42 [facility] pH, Mc, Temp Adj 7.341 7.320 - 7.420 [facility] PO2, Mc 164.8 High [facility] pO2, Mc, Temp Adj 164.8 High [facility] Se cours [facility] Brain Natri. Peptideon 09-28 Natriuretic peptide B (Bld) [Mass/Vol] 964 pg/mL High 0-125 [facility] Comment on above: Performed By: #### C P, BNP, PT, CDP, LIP, TROPI #### [facility] [address] [place] [address] Custom Clothier: Ramiro Santillan MD Brain Natriuretic Peptideon 09-28-2024 Natriuretic peptide B (Bld) [Mass/Vol] 964 pg/mL High 0 - 125 pg/mL [facility] C-Reactive Proteinon 024 CRP High sensitivity method [Mass/Vol] 8.9 mg/L High 0.0 - 5.0 mg/L [facility] CRP [Mass/Vol] 8.9 mg/L High 0.0-5.0 [facility] Comment on above: Performed By: #### P RCAL, CRP, MYCM, GLYHGB, TROPI, SED, CDP, LACTIC, IOCAL, BMPX ####[facility] [address] [place] [address] Lab Director: Ramiro Mark MD#### AGLYCO ####[facility] [address] [place] [address] Lab Director: Wil Swanson MD CBCon 09-28-2024 Erythrocyte distribution width (RBC) [Ratio] 13.0 % 11.8 - 14.4 % [facility] Hematocrit (Bld) [Volume fraction] 28.8 % Low 40.7 - 50.3 % [facility] Hemoglobin (Bld) [Mass/Vol] 9.5 g/dL Low 13.0 - 17.0 g/dL [facility] Interpretation and review of laboratory results Abnormal [facility] MCH (RBC) [Entitic mass] 28.5 pg 25.2 - 33.5 pg [facility] MCHC (RBC) [Mass/Vol] 33.0 g/dL 28.4 - 34.8 g/dL [facility] MCV (RBC) [Entitic vol] 86.5 fL 82.6 - 102.9 fL [facility] Nucleated RBC/100 WBC (Bld) [Ratio] 0.0 % 0.0 per 100 WBC [facility] Platelet mean volume (Bld) [Entitic vol] 10.4 fL 8.1 - 13.5 fL [facility] Platelets (Bld) [#/Vol] 226 10*3/uL [facility] RBC (Bld) [#/Vol] 3.33 10*6/uL Low 4.21 - 5.7 7 m/uL [facility] WBC other (Bld) [#/Vol] 17.2 High [facility] Erythrocyte distribution width (RBC) [Ratio] 13.0 % Normal 11.8-14.4 [facility] Comment on above: Performed By: #### H EPXA, PTT, CBC, PT ####[employer] [address] [place], [place] [id number] lab Director: Ramiro Mark MD Hematocrit (Bld) [Volume fraction] 28.8 % Low 40.7-50.3 [facility] Comment on above: Performed By: #### H EPXA, PTT, CBC, PT ####[employer] [address] [place] [address] Lab Director: Ramiro Mark MD Hemoglobin (Bld) [Mass/Vol] 9.5 g/dL Low 13.0-17.0 [facility] Comment on above: Performed By: #### H EPXA, PTT, CBC, PT ####[facility] [address] [place] [address] Lab Director: Ramiro Mark MD MCH (RBC) [Entitic mass] 28.5 pg Normal 25.2-33.5 [facility] Comment on above: Performed By: #### H EPXA, PTT, CBC, PT ####[facility] [address] [place] [address] Lab Director: Ramiro Mark MD MCHC (RBC) [Mass/Vol] 33.0 g/dL Normal 28.4-34.8 [facility] Comment on above: Performed By: #### H EPXA, PTT, CBC, PT ####[facility] [address] [place] [address] Lab Director: Ramiro Mark MD MCV (RBC) [Entitic vol] 86.5 fL Normal 82.6-102.9 [facility] Comment on above: Performed By: #### H EPXA, PTT, CBC, PT ####[facility] [address] [place] [address] Lab Director: Ramiro Mark MD NRBC Automated 0.0 per 100 WBC Normal 0.0 [facility] Comment on above: Performed By: #### H EPXA, PTT, CBC, PT ####[facility] [address] [place] [address] Lab Director: Ramiro Mark MD Platelet mean volume (Bld) [Entitic vol] 10.4 fL Normal 8.1-13.5 [facility] Comment on above: Performed By: #### H EPXA, PTT, CBC, PT ####[facility] [address] [place] [address] Lab Director: Ramiro Mark MD Platelets (Bld) [#/Vol] 226 10*3/uL Normal 138-453 [facility] Comment on above: Performed By: #### H EPXA, PTT, CBC, PT ####[facility] [address] [place] [address] Lab Director: Ramiro Mark MD RBC (Bld) [#/Vol] 3.33 10*6/uL Low 4.21-5.77 [facility] Comment on above: Performed By: #### H EPXA, PTT, CBC, PT ####[facility] [address] [place] [address] Lab Director: Ramiro Mark MD WBC (Bld) [#/Vol] 17.2 10*3/uL High 3.5-11.3 [facility] Comment on above: Performed By: #### H EPXA, PTT, CBC, PT ####[facility] [address] [place] [address] Lab Director: Ramiro Mark MD CBC with [...] Immature granulocytes/100 WBC (Bld) 0 % 0 [facility] Interpretation and review of laboratory results Abnormal [facility] Lymphocytes/100 WBC (Bld) 5 % Low 24 - 43 % [facility] Lymphocytes/100 WBC (Bld) 0.78 % Low [facility] MCH (RBC) [Entitic mass] 28.7 pg 25.2 - 33.5 pg [facility] MCHC (RBC) [Mass/Vol] 35.0 g/dL High 28.4 - 34.8 g/dL [facility] MCV (RBC) [Entitic vol] 82.0 fL Low 82.6 - 102.9 fL [facility] Monocytes/100 WBC (Bld) 8 % 3 - 12 % [facility] Monocytes/100 WBC (Bld) 1.35 % High [facility] Neutrophils/100 WBC (Bld) 87 % High 36 - 65 % [facility] Nucleated RBC/100 WBC (Bld) [Ratio] 0.0 % 0.0 per 100 WBC [facility] Platelet mean volume (Bld) [Entitic vol] 10.5 fL 8.1 - 13.5 fL [facility] Platelets (Bld) [#/Vol] 240 10*3/uL [facility] RBC (Bld) [#/Vol] 3.34 10*6/uL Low 4.21 - 5.7 7 m/uL [facility] RBC (Bld) [#/Vol] MICROCYTOSIS PRESENT [facility] Segmented neutrophils/100 WBC (Bld) 14.81 % High [facility] WBC other (Bld) [#/Vol] 17.1 High [facility] Basophils (Bld) [#/Vol] 0.33 10*3/uL High [facility] Basophils/100 WBC (Bld) 2 % 0 - 2 % [facility] Eosinophils (Bld) [#/Vol] 0.00 10*3/uL [facility] Eosinophils/100 WBC (Bld) 0 % Low 1 - 4 % [facility] Erythrocyte distribution width (RBC) [Ratio] 12.8 % 11.8 - 14.4 % [facility] Hematocrit (Bld) [Volume fraction] 34.5 % Low 40.7 - 50.3 % [facility] Hemoglobin (Bld) [Mass/Vol] 12.1 g/dL Low 13.0 - 17.0 g/dL [facility] Immature granulocytes (Bld) [#/Vol] 0.00 10*3/uL [facility] Immature granulocytes/100 WBC (Bld) 0 % 0 [facility] Interpretation and review of laboratory results Abnormal [facility] Lymphocytes/100 WBC (Bld) 2 % Low 24 - 43 % [facility] Lymphocytes/100 WBC (Bld) 0.33 % Low [facility] MCH (RBC) [Entitic mass] 28.8 pg 25.2 - 33.5 pg [facility] MCHC (RBC) [Mass/Vol] 35.1 g/dL High 28.4 - 34.8 g/dL [facility] MCV (RBC) [Entitic vol] 82.1 fL Low 82.6 - 102.9 fL [facility] Monocytes/100 WBC (Bld) 2 % Low 3 - 12 % [facility] Monocytes/100 WBC (Bld) 0.33 % [facility] Morphology Everardo (Bld) [Interp] Normal [facility] Neutrophils/100 WBC (Bld) 94 % High 36 - 65 % [facility] Nucleated RBC/100 WBC (Bld) [Ratio] 0.0 % 0.0 per 100 WBC [facility] Platelet mean volume (Bld) [Entitic vol] 10.9 fL 8.1 - 13.5 fL [facility] Platelets (Bld) [#/Vol] 291 10*3/uL [facility] RBC (Bld) [#/Vol] 4.20 10*6/uL Low 4.21 - 5.7 7 m/uL [facility] Segmented neutrophils/100 WBC (Bld) 15.71 % High [facility] WBC other (Bld) [#/Vol] 16.7 High [facility] CBC with Diffon 09-28-2024 Abs. Basophil 0.06 k/uL Normal 0.00-0.20 [facility] Comment on above: Performed By: #### P RCAL, CRP, MYCM, GLYHGB, TROPI, SED, CDP, LACTIC, IOCAL, BMPX ####[facility] [address]606 [place] [address] Lab Director: Ramiro Mark MD#### AGLYCO ####[facility] [address] [place] [address] Lab Director: Wil Swanson MD Abs. Eosinophil <0.03 Normal 0.00-0.44 [facility] Comment on above: Performed By: #### P RCAL, CRP, MYCM, GLYHGB, TROPI, SED, CDP, LACTIC, IOCAL, BMPX ####[address] [address] Lab Director: Ramiro Mark MD#### AGLYCO ####[facility] [address] [place] [address] [id number] lab Director: Wil Swanson MD Abs.Imm.Granulocyte 0.06 k/uL Normal 0.00-0.30 [facility] Comment on above: Performed By: #### P RCAL, CRP, MYCM, GLYHGB, TROPI, SED, CDP, LACTIC, IOCAL, BMPX ####[facility] [address] [place] [address] Lab Director: Ramiro Mark MD#### AGLYCO ####[facility] [address] [place], [place] [id number] Lab Director: Wil Swanson MD Abs.Neutrophil (Seg) 14.81 k/uL High 1.50-8.10 [facility] Comment on above: Performed By: #### P RCAL, CRP, MYCM, GLYHGB, TROPI, SED, CDP, LACTIC, IOCAL, BMPX ####[facility] [address] [place] [address] Lab Director: Ramiro Mark MD#### AGLYCO ####[facility] [address] [place] [address] [id number] Lab Director: Wil Swanson MD Basophils/100 WBC (Bld) 0 % Normal 0-2 [facility] Comment on above: Performed By: #### P RCAL, CRP, MYCM, GLYHGB, TROPI, SED, CDP, LACTIC, IOCAL, BMPX ####[facility] [address] [place] [address] Lab Director: Ramiro Mark MD#### AGLYCO ####[facility] [address] [place] [address] [id number] Lab Director: Wil Swanson MD Eosinophils/100 WBC (Bld) 0 % Low 1-4 [facility] Comment on above: Performed By: #### P RCAL, CRP, MYCM, GLYHGB, TROPI, SED, CDP, LACTIC, IOCAL, BMPX ####[facility] [address] [place] [address] Lab Director: Ramiro Mark MD#### AGLYCO ####[facility] [address] [place] [address] [id number] Lab Director: Wil Swanson MD Erythrocyte distribution width (RBC) [Ratio] 13.0 % Normal 11.8-14.4 [facility] Comment on above: Performed By: #### P RCAL, CRP, MYCM, GLYHGB, TROPI, SED, CDP, LACTIC, IOCAL, BMPX ####[facility] [address] [place] [address] Lab Director: Ramiro Mark MD#### AGLYCO ####[facility] [address] [place] [address] [id number] Lab Director: Wil Swanson MD Hematocrit (Bld) [Volume fraction] 27.4 % Low 40.7-50.3 [facility] Comment on above: Performed By: #### P RCAL, CRP, MYCM, GLYHGB, TROPI, SED, CDP, LACTIC, IOCAL, BMPX ####[facility] [address] [place] [id number] Lab Director: Ramiro Mark MD#### AGLYCO ####[facility] [address] [place] [address] [id number] lab Director: Wil Swanson MD Hemoglobin (Bld) [Mass/Vol] 9.6 g/dL Low 13.0-17.0 [facility] Comment on above: Performed By: #### P RCAL, CRP, MYCM, GLYHGB, TROPI, SED, CDP, LACTIC, IOCAL, BMPX ####[place] [address] Lab Director: Ramiro Mark MD#### AGLYCO ####[facility] [address] [place] [address] [id number] Lab Director: Wil Swanson MD Immature granulocytes/100 WBC (Bld) 0 % Normal 0 [facility] Comment on above: Performed By: #### P RCAL, CRP, MYCM, GLYHGB, TROPI, SED, CDP, LACTIC, IOCAL, BMPX ####[facility] [address] [place] [address] [id number] Lab Director: Ramiro Mark MD#### AGLYCO ####[facility] [address] [place] [address] [id number] Lab Director: Wil Swanson MD Lymphocytes (Bld) [#/Vol] 0.78 10*3/uL Low 1.10-3.70 [facility] Comment on above: Performed By: #### P RCAL, CRP, MYCM, GLYHGB, TROPI, SED, CDP, LACTIC, IOCAL, BMPX ####[facility] [address] [place] [address] Lab Director: Ramiro Mark MD#### AGLYCO ####[facility] [address] [place] [address] [id number] lab Director: Wil Swanson MD Lymphocytes/100 WBC (Bld) 5 % Low 24-43 [facility] Comment on above: Performed By: #### P RCAL, CRP, MYCM, GLYHGB, TROPI, SED, CDP, LACTIC, IOCAL, BMPX ####[facility] [address] [place] [address] Lab Director: Ramiro Mark MD#### AGLYCO ####[facility] [address] [place] [address] [phone] Lab Director: Wil Swanson MD MCH (RBC) [Entitic mass] 28.7 pg Normal 25.2-33.5 [facility] Comment on above: Performed By: #### P RCAL, CRP, MYCM, GLYHGB, TROPI, SED, CDP, LACTIC, IOCAL, BMPX ####[address] [address] lab Director: Ramiro Mark MD#### AGLYCO ####[facility] [address] [place] [address] [id number] Lab Director: Wil Swanson MD MCHC (RBC) [Mass/Vol] 35.0 g/dL High 28.4-34.8 [facility] Comment on above: Performed By: #### P RCAL, CRP, MYCM, GLYHGB, TROPI, SED, CDP, LACTIC, IOCAL, BMPX ####[facility] [address] [place] [address] [id number] Lab Director: Ramiro Mark MD#### AGLYCO ####[facility] [address] [place] [address] Lab Director: Wil Swanson MD MCV (RBC) [Entitic vol] 82.0 fL Low 82.6-102.9 [facility] Comment on above: Performed By: #### P RCAL, CRP, MYCM, GLYHGB, TROPI, SED, CDP, LACTIC, IOCAL, BMPX ####[facility] [address]92 [place] [address] Lab Director: Ramiro Mark MD#### AGLYCO ####[facility] [address] [place] [address] Lab Director: Wil Swanson MD Monocytes (Bld) [#/Vol] 1.35 10*3/uL High 0.10-1.20 [facility] Comment on above: Performed By: #### P RCAL, CRP, MYCM, GLYHGB, TROPI, SED, CDP, LACTIC, IOCAL, BMPX ####[facility] [address] [place] [address] Lab Director: Ramiro Mark MD#### AGLYCO ####[facility] [address] [place] [address] Lab Director: Wil Swanson MD Monocytes/100 WBC (Bld) 8 % Normal 3-12 [facility] Comment on above: Performed By: #### P RCAL, CRP, MYCM, GLYHGB, TROPI, SED, CDP, LACTIC, IOCAL, BMPX ####[facility] [address]kyw3555 [place] [address] Lab Director: Ramiro Mark MD#### AGLYCO ####[facility] [address] [place] [address] Lab Director: Wil Swanson MD Neutrophil (Seg) 87 % High 36-65 [facility] Comment on above: Performed By: #### P RCAL, CRP, MYCM, GLYHGB, TROPI, SED, CDP, LACTIC, IOCAL, BMPX ####[facility] [address] [place] [address] Lab Director: Ramiro Mark MD#### AGLYCO ####[facility] [address] [place] [address] [phone] Lab Director: Wil Swanson MD NRBC Automated 0.0 per 100 WBC Normal 0.0 [facility] Comment on above: Performed By: #### P RCAL, CRP, MYCM, GLYHGB, TROPI, SED, CDP, LACTIC, IOCAL, BMPX ####[place] [address] Lab Director: Ramiro Mark MD#### AGLYCO ####[facility] [address] [place] [address] [phone] Lab Director: Wil Swanson MD Platelet mean volume (Bld) [Entitic vol] 10.5 fL Normal 8.1-13.5 [facility] Comment on above: Performed By: #### P RCAL, CRP, MYCM, GLYHGB, TROPI, SED, CDP, LACTIC, IOCAL, BMPX ####[place] [address] Lab Director: Ramiro Mark MD#### AGLYCO ####[facility] [address] [place] [address] [id number] Lab Director: Wil Swanson MD Platelets (Bld) [#/Vol] 240 10*3/uL Normal 138-453 [facility] Comment on above: Performed By: #### P RCAL, CRP, MYCM, GLYHGB, TROPI, SED, CDP, LACTIC, IOCAL, BMPX ####[place] [address] Lab Director: Ramiro Mark MD#### AGLYCO ####[facility] [address] [place] [address] Lab Director: Wil Swanson MD RBC (Bld) [#/Vol] 3.34 10*6/uL Low 4.21-5.77 [facility] Comment on above: Performed By: #### P RCAL, CRP, MYCM, GLYHGB, TROPI, SED, CDP, LACTIC, IOCAL, BMPX ####[facility] [address] [place] [address] Lab Director: Ramiro Mark MD#### AGLYCO ####[facility] [address] [place] [address] Lab Director: Wil Swanson MD RBC morphology finding Nom (Bld) MICROCYTOSIS PRESENT Normal [facility] Comment on above: Performed By: #### P RCAL, CRP, MYCM, GLYHGB, TROPI, SED, CDP, LACTIC, IOCAL, BMPX ####[place] [address] Lab Director: Ramiro Mark MD#### AGLYCO ####[facility] [address] [place] [address] Lab Director: Wil Swanson MD WBC (Bld) [#/Vol] 17.1 10*3/uL High 3.5-11.3 [facility] Comment on above: Performed By: #### P RCAL, CRP, MYCM, GLYHGB, TROPI, SED, CDP, LACTIC, IOCAL, BMPX ####[place] [address] Lab Director: Ramiro Mark MD#### AGLYCO ####[facility] [address] [place] [address] Lab Director: Wil Swanson MD Abs. Basophil 0.33 k/uL High 0.0-0.2 [facility] Comment on above: Performed By: #### B H #### [facility] [address] [place], [place] [address] Custom Clothier: Ramiro Santillan MD Abs.Imm.Granulocyte 0.00 k/uL Normal 0.00-0.30 [facility] Comment on above: Performed By: #### B H #### [facility] [address] [place] [address] Custom Clothier: Ramiro Santillan MD Abs.Neutrophil (Seg) 15.71 k/uL High 1.50-8.10 [facility] Comment on above: Performed By: #### B H #### [address] [place] [address] Custom Clothier: Ramiro Santillan MD Basophils/100 WBC (Bld) 2 % Normal 0-2 [facility] Comment on above: Performed By: #### B H #### [address] [place] [address] Custom Clothier: Ramiro Santillan MD Eosinophils (Bld) [#/Vol] 0.00 10*3/uL Normal 0.00-0.44 [facility] Comment on above: Performed By: #### B H #### [facility] [address] [place] [address] [address] [place], [place] [address] Custom Clothier: Ramiro Santillan MD Eosinophils/100 WBC (Bld) 0 % Low 1-4 [facility] Comment on above: Performed By: #### B H #### [address] [place] [address] Custom Clothier: Ramiro Santillan MD Immature granulocytes/100 WBC (Bld) 0 % Normal 0 [facility] Comment on above: Performed By: #### B H #### [facility] [address] [place] [address] [place] [id number] Custom Clothier: aRmiro Santillan MD Lymphocytes (Bld) [#/Vol] 0.33 10*3/uL Low 1.10-3.70 [facility] Comment on above: Performed By: #### B H #### [facility] [address] [place] [address] Custom Clothier: Ramiro Santillan MD Lymphocytes/100 WBC (Bld) 2 % Low 24-43 [facility] Comment on above: Performed By: #### B H #### [facility] [address] [place] [address] Custom Clothier: Ramiro Santillan MD Monocytes (Bld) [#/Vol] 0.33 10*3/uL Normal 0.10-1.20 [facility] Comment on above: Performed By: #### B H #### [facility] [address] [place], [facility]51 ( Custom Clothier: Ramiro Santillan MD Monocytes/100 WBC (Bld) 2 % Low 3-12 [facility] Comment on above: Performed By: #### B H #### [facility] [address] [place], [facility]83 Custom Clothier: Ramiro Santillan MD Morphology Everardo (Bld) [Interp] Normal Normal [facility] Comment on above: Performed By: #### B H #### [facility] [address] [place], [facility]83 Custom Clothier: Ramiro Santillan MD Neutrophil (Seg) 94 % High 36-65 [facility] Comment on above: Performed By: #### B H #### [facility] [address] [place] [id number] Custom Clothier: Ramiro Santillan MD Erythrocyte distribution width (RBC) [Ratio] 12.8 % Normal 11.8-14.4 [facility] Comment on above: Performed By: #### B H #### [facility] [address] [place] [address] Dr. [place], [facility]83 Custom Clothier: Ramiro Santillan MD Hematocrit (Bld) [Volume fraction] 34.5 % Low 40.7-50.3 [facility] Comment on above: Performed By: #### B H #### [address] [place] [facility]83 Custom Clothier: Ramiro Santillan MD Hemoglobin (Bld) [Mass/Vol] 12.1 g/dL Low 13.0-17.0 [facility] Comment on above: Performed By: #### B H #### [address] [place], [facility]83 Custom Clothier: Ramiro Santillan MD MCH (RBC) [Entitic mass] 28.8 pg Normal 25.2-33.5 [facility] Comment on above: Performed By: #### B H #### [address] [place], [facility]83 Custom Clothier: Ramiro Santillan MD MCHC (RBC) [Mass/Vol] 35.1 g/dL High 28.4-34.8 [facility] Comment on above: Performed By: #### B H #### [address] [place], [facility]83 Custom Clothier: Ramiro Santillan MD MCV (RBC) [Entitic vol] 82.1 fL Low 82.6-102.9 [facility] Comment on above: Performed By: #### B H #### [address] [place] [address] Custom Clothier: Ramiro Santillan MD NRBC Automated 0.0 per 100 WBC Normal 0.0 [facility] Comment on above: Performed By: #### B H #### [address] [place] [facility]83 Custom Clothier: Ramiro Santillan MD Platelet mean volume (Bld) [Entitic vol] 10.9 fL Normal 8.1-13.5 [facility] Comment on above: Performed By: #### B H #### [facility] [address] [place], [place] [id number] Custom Clothier: Ramiro Santillan MD Platelets (Bld) [#/Vol] 291 10*3/uL Normal 138-453 [facility] Comment on above: Performed By: #### B H #### [facility] [address] [place] [address] Custom Clothier: Ramiro Santillan MD RBC (Bld) [#/Vol] 4.20 10*6/uL Low 4.21-5.77 [facility] Comment on above: Performed By: #### B H #### [facility] [address] [place], [place] [id number] Custom Clothier: Rmairo Santillan MD WBC (Bld) [#/Vol] 16.7 10*3/uL High 3.5-11.3 [facility] Comment on above: Performed By: #### B H #### [facility] [address] [place], [place] [id number] Custom Clothier: Ramiro Santillan MD CKon 09-28-2024 CK [Catalytic activity/Vol] 420 U/L High 39 - 308 U/L [facility] CT CHEST ABDOMEN PELVIS W CO NTRASTon [...] Lito Marie MD 09/28/24 Final result Normal [facility] CT Chest and Abdomen and Pel [...] adjacent to the pancreas concerning for pancreatitis. [facility] Radiology Study observation (narrative) [facility] CT HEAD WO CONTRASTon 2023 CT HEAD [...] Lito Marie MD 09/28/24 Final result Normal [facility] CT Head WO contraston 2023 No acute intracrania l abnormality. Remote right parietal lobe infarct. [facility] EXAMINATION: CT OF THE HEAD [...] of the visualized skull or soft tissues. [facility] Lito Marie MD - 09/28/2024 [...] intracranial abnormality. Remote right parietal lobe infarct. [facility] Radiology Study observation (narrative) [facility] CT Head WO contrastOrdered B y: Lito Marie on 09-28-2024 [facility] Work Phone: CTA HEAD NECK W CONTRASTon [...] Lito Marie MD 09/28/24 Final result Normal [facility] CTA Head vessels and Neck ve ssels W contrast Karri 09-28-2024 No significant steno sis or evidence for large vessel occlusion. Few partially visualized ground-glass opacities in the left lung concerning for pneumonia. [facility] EXAMINATION: CTA OF THE HEAD [...] fluid collection. The winkler-white differentiation is maintained. [facility] Lito Marie MD - 09/28/2024 [...] in the left lung concerning for pneumonia. [facility] Radiology Study observation (narrative) [facility] Calcium, Ionicon 09-28-2024 Calcium [Moles/Vol] 1.20 mmol/L Normal 1.13-1.33 [facility] Comment on above: Performed By: #### P RCAL, CRP, MYCM, GLYHGB, TROPI, SED, CDP, LACTIC, IOCAL, BMPX ####[address] [place] [address] Lab Director: Ramiro Mark MD#### AGLYCO ####[address] [address] [facility] Director: Wil Swanson MD Calcium, Ionizedon Calcium.ionized (Bld) [Moles/Vol] 1.20 mmol/L 1.13 - 1.33 mmol/L [facility] Comp Metabolic Profon 2023 Albumin [Mass/Vol] 4.0 g/dL Normal 3.5-5.2 [facility] Comment on above: Performed By: #### B H #### [facility] [address] [place] [address] Custom Clothier: Ramiro Santillan MD Albumin/Glob Ratio 1.2 Normal 1.0-2.5 [facility] Comment on above: Performed By: #### B H #### [facility] [address] [place], [place] [id number] Custom Clothier: Ramiro Santillan MD Alkaline Phos 192 U/L High 40-129 [facility] Comment on above: Performed By: #### B H #### [facility] [address] [place], [place] [id number] Custom Clothier: Ramrio Santillan MD ALT [Catalytic activity/Vol] 24 U/L Normal 10-50 [facility] Comment on above: Performed By: #### B H #### [facility] [address] [place], [place] [id number] Custom Clothier: Ramiro Santillan MD Anion gap [Moles/Vol] 18 mmol/L High 9-16 [facility] Comment on above: Performed By: #### B H #### [facility] [address] [place] [address] Custom Clothier: Ramiro Santillan MD AST [Catalytic activity/Vol] 29 U/L Normal 10-50 [facility] Comment on above: Performed By: #### B H #### [facility] [address] [place], [place] [id number] Custom Clothier: Ramiro Santillan MD Bilirubin [Mass/Vol] 0.4 mg/dL Normal 0.00-1.20 [facility] Comment on above: Performed By: #### B H #### [facility] [address] [place] [id number] Custom Clothier: Ramiro Santillan MD BUN/CRE Ratio 22 High 9-20 [facility] Comment on above: Performed By: #### B H #### [facility] [address] [place], [place] [id number] Custom Clothier: Ramiro Santillan MD Calcium [Mass/Vol] 9.4 mg/dL Normal 8.6-10.4 [facility] Comment on above: Performed By: #### B H #### [facility] [address] [place], [place] [id number] Custom Clothier: Ramiro Santillan MD Chloride [Moles/Vol] 87 mmol/L Low 98-107 [facility] Comment on above: Performed By: #### B H #### [facility] [address] [place], [place] [id number] Custom Clothier: Ramiro Santillan MD CO2 [Moles/Vol] 23 mmol/L Normal 20-31 [facility] Comment on above: Performed By: #### B H #### [facility] [address] [place] [id number] Custom Clothier: Ramiro Santillan MD Creatinine [Mass/Vol] 2.0 mg/dL High 0.70-1.20 [facility] Comment on above: Performed By: #### B H #### [facility] [address] [place], [place] [id number] Custom Clothier: Ramiro Santillan MD GFR/1.73 sq M.predicted among non-blacks MDRD (S/P/Bld) [Vol rate/Area] 39 mL/min/{1.73_m2} Low >60 [facility] Comment on above: Result Comment: These [...] secretion. Performed By: #### B H #### [facility] [address] [place] [address] [place] [address] Custom Clothier: Ramiro Santillan MD Glucose [Mass/Vol] 820 mg/dL Critically high 74-99 [facility] Comment on above: Performed By: #### B H #### [facility] [address] [place] [address] [place] [address] Custom Clothier: Ramiro Santillan MD Potassium [Moles/Vol] 5.0 mmol/L Normal 3.7-5.3 [facility] Comment on above: Performed By: #### B H #### [address] [place], [place] 1016083 Custom Clothier: Ramiro Santillan MD Protein [Mass/Vol] 7.3 g/dL Normal 6.6-8.7 [facility] Comment on above: Performed By: #### B H #### [facility] [address] [place] [address] Dr. [place], [place] [id number] Custom Clothier: Ramiro Santillan MD Sodium [Moles/Vol] 128 mmol/L Low 136-145 [facility] Comment on above: Performed By: #### B H #### [facility] [address] [place] [address] [place] [address] Custom Clothier: Ramiro Santillan MD Urea nitrogen [Mass/Vol] 43 mg/dL High 6-20 [facility] Comment on above: Performed By: #### B H #### [facility] [address] [place] [address] Custom Clothier: Ramiro Santillan MD [facility] Metabolic [facility] 09-28-2024 Albumin [Mass/Vol] 4.0 g/dL 3.5 - 5.2 g/dL [facility] Albumin/Globulin [Mass ratio] 1.2 {ratio} 1.0 - 2.5 [facility] ALP [Catalytic activity/Vol] 192 U/L High 40 - 129 U/L [facility] ALT [Catalytic activity/Vol] 24 U/L 10 - 50 U/L [facility] Anion gap [Moles/Vol] 18 mmol/L High 9 - 16 mmol/L [facility] AST [Catalytic activity/Vol] 29 U/L 10 - 50 U/L [facility] Bilirubin [Mass/Vol] 0.4 mg/dL 0.00 - 1.20 mg/dL [facility] Calcium [Mass/Vol] 9.4 mg/dL 8.6 - 10. 4 mg/dL [facility] Chloride [Moles/Vol] 87 mmol/L Low 98 - 10 7 mmol/L [facility] CO2 [Moles/Vol] 23 mmol/L 20 - 31 mmol/L [facility] Creatinine [Mass/Vol] 2.0 mg/dL High 0.70 - 1.20 mg/dL [facility] Est, Glom Filt Rate 39 Low - PINF [facility] Comment on above: These results are not [...] Critically high 74 - 9 9 mg/dL [facility] Interpretation and review of laboratory results Abnormal [facility] Potassium [Moles/Vol] 5.0 mmol/L 3.7 - 5.3 mmol/L [facility] Protein [Mass/Vol] 7.3 g/dL 6.6 - 8.7 g/dL [facility] Sodium [Moles/Vol] 128 mmol/L Low 136 - 145 mmol/L [facility] Urea nitrogen [Mass/Vol] 43 mg/dL High 6 - 20 mg/dL [facility] Urea nitrogen/Creatinine [Mass ratio] 22 mg/mg High 9 - 20 [facility] Creatine Kinaseon 09-28-2024 CK [Catalytic activity/Vol] 420 U/L High 39-308 [facility] Comment on above: Performed By: #### B MP #### [address] [place] [address] Custom Clothier: Ramiro Santillan MD Drug Scr, Abuse, Uron 2023 Amphetamine(s),Ur Negative Normal NEG [facility] Comment on above: Result Comment: Cuto ff: 1000 ng/mL Performed By: #### B MP #### [address] [place] [address] Custom Clothier: Ramiro Santillan MD Barbiturate(s),Ur Negative Normal NEG [facility] Comment on above: Result Comment: Cuto ff: 200 ng/ml Performed By: #### B MP #### [facility] [address] [place] [address] [place] [address] Custom Clothier: Ramiro Santillan MD Benzodiazepine(s) Negative Normal NEG [facility] Comment on above: Result Comment: Cuto ff: 200 ng/ml Performed By: #### B MP #### [address] [place] [address] Custom Clothier: Ramiro Santillan MD Buprenorphrine, Ur Negative Normal NEG [facility] Comment on above: Result Comment: Cuto ff: 5 ng/ml Performed By: #### B MP #### [address] [place] [address] Custom Clothier: Ramiro Santillan MD Cannabinoid(s),Ur Negative Normal NEG [facility] Comment on above: Result Comment: Cuto ff: 50 ng/ml Performed By: #### B MP #### [address] [place] [address] Custom Clothier: Ramiro Santillan MD Cocaine Metabolite Negative Normal [facility] Comment on above: Result Comment: Cuto ff: 300 ng/ml Performed By: #### B MP #### [address] [place] [address] Custom Clothier: Ramiro Santillan MD Fentanyl, Urine Negative Normal [facility] Comment on above: Result Comment: Cuto ff: 5 ng/ml Performed By: #### B MP #### [address] [place] [address] Custom Clothier: Ramiro Santillan MD Interpretive Info This method is a screening test to detect only these drug classes as part of a Normal [facility] Comment on above: Result Comment: medi juvenal workup. Confirmatory testing by another method should be ordered if clinically indicated. Performed By: #### B MP #### [address] [place] [address] Custom Clothier: Ramiro Santillan MD Methadone Ql (U) Negative Normal NEG [facility] Comment on above: Result Comment: Cuto ff: 300 ng/ml Performed By: #### B MP #### [address] [place] [address] Custom Clothier: Ramiro Santillan MD Opiate(s), Ur Negative Normal NEG [facility] Comment on above: Result Comment: Cuto ff: 300 ng/ml Note: The Opiate screen is not intended to detect Oxycodone. Performed By: #### B MP #### [address] [place] [address] Custom Clothier: Ramiro Santillan MD Oxycodone, Urine Negative Normal NEG [facility] Comment on above: Result Comment: Cuto ff: 100 ng/ml Performed By: #### B MP #### [facility] [address] [place] [address] Custom Clothier: Ramiro Santillan MD Phencyclidine, Ur Negative Normal NEG [facility] Comment on above: Result Comment: Cuto ff: 25 ng/ml Performed By: #### B MP #### [facility] [address] [place] [address] Custom Clothier: Ramiro Santillan MD Glucose, Whole Bloodon 09-28 Glucose [Mass/Vol] 387 mg/dL High 74 - 100 mg/dL [facility] Interpretation and review of laboratory results Abnormal [facility] Glucose [Mass/Vol] 387 mg/dL High 74-100 [facility] Glucose [Mass/Vol] 469 mg/dL High 74 - 100 mg/dL [facility] Interpretation and review of laboratory results Abnormal [facility] Glucose [Mass/Vol] 469 mg/dL High 74-100 [facility] Glucose [Mass/Vol] 543 mg/dL Critically high 74 - 1 00 mg/dL [facility] Interpretation and review of laboratory results Abnormal [facility] Glucose [Mass/Vol] 543 mg/dL Critically high 74-100 [facility] Glucose [Mass/Vol] 137 mg/dL High 75-110 [facility] Glucose [Mass/Vol] 472 mg/dL Critically high 75-[address] [facility] Comment on above: Result Comment: Martin carvajal Noted Glucose [Mass/Vol] 115 mg/dL High 75-110 [facility] Glucose [Mass/Vol] 126 mg/dL High 75-110 [facility] Glucose [Mass/Vol] 178 mg/dL High 75-110 [facility] Glucose [Mass/Vol] 255 mg/dL High 75-110 [facility] Glucose [Mass/Vol] 289 mg/dL High 75-110 [facility] Glucose [Mass/Vol] 305 mg/dL High 75-110 [facility] Hemoglobin A1Con 09-28-[address] Gluc Sent to reference laboratory. Separate report to follow. Normal [facility] Comment on above: Result Comment: The ADA and AACC recommend providing the estimated average glucose result to permit better patient understanding of their HBA1c result. Performed By: #### P RCAL, CRP, MYCM, GLYHGB, TROPI, SED, CDP, LACTIC, IOCAL, BMPX ####[facility] [address] [place] [id number] lab Director: Ramiro Mark MD#### AGLYCO ####[facility] [address] [place] [address] [id number] Lab Director: Wil Swanson MD Hemoglobin A1C Sent to reference laboratory. Separate report to follow. Normal 4.0-6.0 [facility] Comment on above: Performed By: #### P RCAL, CRP, MYCM, GLYHGB, TROPI, SED, CDP, LACTIC, IOCAL, BMPX ####[facility] [address] [place] [address] [id number] lab Director: Ramiro Mark MD#### AGLYCO ####[facility] [address] [place] [id number] Lab Director: Wil Swanson MD Hemoglobin A1con 09-28-2024 Average glucose Estimated from glycated hemoglobin (Bld) [Mass/Vol] Sent to reference laboratory. Separate report to follow. mg/dL [facility] HbA1c (Bld) [Mass fraction] Sent to reference laboratory. Separate report to follow. 4.0 - 6.0 % [facility] Heparin Anti-Xaon 09-28-2024 Heparin Anti-Xa <0.10 Normal [facility] Comment on above: Result Comment: This test has not been validated or calibrated for therapies other than unfractionated heparin.Interpretation of the result in relation to other therapies must be done with caution and within clinical context. Performed By: #### H EPXA, PTT, CBC, PT ####[facility] [address] [place], [place] [id number] Lab Director: Ramiro Mark MD LEGIONELLA ANTIGEN, URINEon 09-28-2024 L. pneumophila 1 Ag IA.rapid Ql (U) Negative NEGATIVE [facility] Lactic Acidon 09-28-2024 Lactic Acid, Whole Blood 0.9 mmol/L 0.7 - 2.1 mmol/L [facility] Lactic Acid,Whole Bl 0.9 mmol/L Normal 0.7-2.1 [facility] Comment on above: Performed By: #### P HO, MG, BMP, LACTIC ####[facility] [address] [place] [address] [id number] lab Director: Ramiro Mark MD Lactic Acid, Whole Blood 2.0 mmol/L 0.7 - 2.1 mmol/L [facility] Lactic Acid,Whole Bl 2.0 mmol/L Normal 0.7-2.1 [facility] Comment on above: Performed By: #### P HO, MG, BMP, TROPI, LACTIC ####[facility] [address] [place] [address] [id number] Lab Director: Ramiro Mark MD Interpretation and review of laboratory results Abnormal [facility] Lactic Acid, Whole Blood 3.2 mmol/L High 0.7 - 2.1 mmol/L [facility] Lactic Acid,Whole Bl 3.2 mmol/L High 0.7-2.1 [facility] Comment on above: Performed By: #### P RCAL, CRP, MYCM, GLYHGB, TROPI, SED, CDP, LACTIC, IOCAL, BMPX ####[facility] [address] [place], [place] [id number] Lab Director: Ramiro Mark MD#### AGLYCO ####[facility] [address] [place] [address] Lab Director: Wil Swanson MD Interpretation and review of laboratory results Abnormal [facility] Lactate (BldV) [Moles/Vol] 3.4 mmol/L High 0.5 - 2.2 mmol/L [facility] Lactate [Moles/Vol] 3.4 mmol/L High 0.5-2.2 [facility] Comment on above: Performed By: #### L ACTIC #### [facility] [address] [address] Custom Clothier: Ramiro Santillan MD Interpretation and review of laboratory results Abnormal [facility] Lactate (BldV) [Moles/Vol] 2.3 mmol/L High 0.5 - 2.2 mmol/L [facility] Lactate [Moles/Vol] 2.3 mmol/L High 0.5-2.2 [facility] Comment on above: Performed By: #### L ACTIC #### [facility] [address] [place] [address] Custom Clothier: Ramiro Santillan MD Legionella Ag, Uron 09-28-20 24 Legionella Ag, Ur Negative Normal NEG [facility] Comment on above: Result Comment: L. p neumophila serogroup 1 antigen not detected.A negative result does not exclude infection with Leginella pnemophila serogroup 1 nor does it rule out other microbial-caused respiratory infections of disease caused by other serogroups of Legionella pneumophila. Performed By: #### L EGU ####[facility] [address] [place], [place] [id number] Lab Director: Ramiro Mark MD Lipaseon 09-28-2024 Lipase [Catalytic activity/Vol] 83 U/L High 13 - 60 U/L [facility] Lipase [Catalytic activity/Vol] 83 U/L High 13-60 [facility] Comment on above: Performed By: #### B H #### [facility] [address] [place] [address] Custom Clothier: Ramiro Santillan MD MRSA, DNA, Nasalon Specimen Description .NASAL SWAB Normal [facility] Comment on above: Performed By: #### M RSANO ####[address] [place] [address] Lab Director: Ramiro Mark MD Magnesiumon 09-28-2024 Magnesium [Mass/Vol] 1.7 mg/dL 1.6 - 2 .6 mg/dL [facility] Magnesium [Mass/Vol] 1.7 mg/dL Normal 1.6-2.6 [facility] Comment on above: Performed By: #### P HO, MG, BMP, LACTIC ####[address] [place] [address] Lab Director: Ramiro Mark MD Magnesium [Mass/Vol] 1.8 mg/dL 1.6 - 2 .6 mg/dL [facility] Magnesium [Mass/Vol] 1.8 mg/dL Normal 1.6-2.6 [facility] Comment on above: Performed By: #### P HO, MG, BMP, TROPI, LACTIC ####[facility] [address] [place] [address] Lab Director: Ramiro Mark MD Magnesium [Mass/Vol] 1.3 mg/dL Low 1.6-2.6 [facility] Comment on above: Performed By: #### B MP #### [facility] [address] [place] [address] Custom Clothier: Ramiro Santillan MD Magnesium [Mass/Vol] 2.1 mg/dL 1.6 - 2 .6 mg/dL [facility] Magnesium [Mass/Vol] 2.1 mg/dL Normal 1.6-2.6 [facility] Comment on above: Performed By: #### B #### [facility] [address] [place] [address] Custom Clothier: Ramiro Santillan MD Microscopic Urinalysison Epithelial cells LM.HPF (Urine sed) [#/Area] 0 TO 2 [facility] RBC LM.HPF (Urine sed) [#/Area] 2 TO 5 [facility] WBC LM.HPF (Urine sed) [#/Area] 0 TO 2 [facility] No Panel Informationon 09-28 [facility] Interpretation and review of laboratory results Abnormal [facility] Interpretation and review of laboratory results Abnormal [facility] Interpretation and review of laboratory results Abnormal [facility] Interpretation and review of laboratory results Abnormal [facility] Interpretation and review of laboratory results Abnormal [facility] POC Glucose Fingerstickon Glucose [Mass/Vol] 137 mg/dL High 75 - 110 mg/dL [facility] Interpretation and review of laboratory results Abnormal [facility] Glucose [Mass/Vol] 472 mg/dL Critically high 75 - 1 10 mg/dL [facility] Interpretation and review of laboratory results Abnormal [facility] Glucose [Mass/Vol] 115 mg/dL High 75 - 110 mg/dL [facility] Interpretation and review of laboratory results Abnormal [facility] Glucose [Mass/Vol] 126 mg/dL High 75 - 110 mg/dL [facility] Interpretation and review of laboratory results Abnormal [facility] Glucose [Mass/Vol] 178 mg/dL High 75 - 110 mg/dL [facility] Interpretation and review of laboratory results Abnormal [facility] Glucose [Mass/Vol] 255 mg/dL High 75 - 110 mg/dL [facility] Interpretation and review of laboratory results Abnormal [facility] Glucose [Mass/Vol] 289 mg/dL High 75 - 110 mg/dL [facility] Interpretation and review of laboratory results Abnormal [facility] Glucose [Mass/Vol] 305 mg/dL High 75 - 110 mg/dL [facility] Interpretation and review of laboratory results Abnormal [facility] PTon 09-28-2024 INR Coag (PPP) [Relative time] 1.1 {INR} Normal [facility] Comment on above: Result Comment: Ther apeutic Range: Moderate Anticoagulant Intensity: INR = 2.0-3.0 High Anticoagulant Intensity: INR = 2.5-3.5 Performed By: #### H EPXA, PTT, CBC, PT ####[address] [place], [place] [id number] [facility] Director: Ramiro Mark MD PT Coag (PPP) [Time] 14.3 s Normal 11.7-14.9 [facility] Comment on above: Performed By: #### H EPXA, PTT, CBC, PT ####[address] [id number] Lab Director: Ramiro Mark MD INR Coag (PPP) [Relative time] 0.9 {INR} Normal [facility] Comment on above: Therapeutic Range: Moderate Anticoagulant Intensity: INR = 2.0-3.0 High Anticoagulant Intensity: INR = 2.5-3.5 Result Comment: Therapeutic Range: Moderate Anticoagulant Intensity: INR = 2.0-3.0 High Anticoagulant Intensity: INR = 2.5-3.5 Performed By: #### C P, BNP, PT, CDP, LIP, TROPI #### [facility] [address] [place] [address] [place] [address] Custom Clothier: Ramiro Santillan MD PT Coag (PPP) [Time] 12.2 s Normal 11.7-14.1 [facility] Comment on above: Performed By: #### C P, BNP, PT, CDP, LIP, TROPI #### [facility] [address] [place] [address] Custom Clothier: Ramiro Santillan MD Phosphoruson 09-28-2024 Phosphate [Mass/Vol] 3.2 mg/dL 2.5 - 4 .5 mg/dL [facility] Phosphate [Mass/Vol] 2.8 mg/dL 2.5 - 4 .5 mg/dL [facility] Phosphate [Mass/Vol] 4.9 mg/dL High 2.5 - 4 .5 mg/dL [facility] Phosphorus, Inorg.on 024 Phosphorus, Inorg. 3.2 mg/dL Normal 2.5-4.5 [facility] Comment on above: Performed By: #### P HO, MG, BMP, LACTIC ####[facility] [address] [place], [place] [id number] Lab Director: Ramiro Mark MD Phosphorus, Inorg. 2.8 mg/dL Normal 2.5-4.5 [facility] Comment on above: Performed By: #### P HO, MG, BMP, TROPI, LACTIC ####[facility] [address] [place] [address] Lab Director: Ramiro Mark MD Phosphorus, Inorg. 3.5 mg/dL Normal 2.5-4.5 [facility] Comment on above: Performed By: #### B MP #### [facility] [address] [place] [address] Custom Clothier: Ramiro Santillan MD Phosphorus, Inorg. 4.9 mg/dL High 2.5-4.5 [facility] Comment on above: Performed By: #### L ACTIC #### [facility] [address] [place] [address] Custom Clothier: Ramiro Santillan MD Portable XR Chest AP [...] tube with the tip in the midtrachea. [facility] Radiology Study observation (narrative) [facility] Procalcitoninon 09-28-2024 Procalcitonin [Mass/Vol] 0.19 ng/mL High 0.00 - 0.09 ng/mL [facility] Procalcitonin 0.19 ng/mL High 0.00-0.09 [facility] Comment on above: Result Comment: Susp [...] entered into the Change in Procalcitonin Calculator ([email or web address]) to determine the patient's Mortality Risk PrognosisIn healthy neonates, plasma Procalcitonin (PCT) concentrations increase gradually after , reaching peak values at about 24 hours of age then decrease to normal values below 0.5 ng/mL by 48-72 hours of age. Performed By: #### P RCAL, CRP, MYCM, GLYHGB, TROPI, SED, CDP, LACTIC, IOCAL, BMPX ####[facility] [address] [place], [place] [id number] Lab Director: Ramiro Mark MD#### AGLYCO ####[facility] [address] [place] [address] Lab Director: Wil Swanson MD Protime-INRon 09-28-2024 INR Coag (PPP) [Relative time] 1.1 {INR} [facility] Linea PT Coag (PPP) [Time] 14.3 [address] [facility] Resp Viral Panelon 4 Adenovirus Not detected Normal [facility] Comment on above: Performed By: #### R GAS TRUCK DRIVER ####[facility] [address] [place], [place] [id number] Lab Director: MD Marquis Morenot.parapertussis Not detected Normal [facility] Comment on above: Performed By: #### R GAS TRUCK DRIVER ####[facility] [address] [place] [address] Lab Director: MD Marquis Morenotella pertussis Not detected Normal [facility] Comment on above: Performed By: #### R GAS TRUCK DRIVER ####[facility] [address] [place] [address] Lab Director: Ramiro Mark MD Chlamyd.pneumoniae Not detected Normal [facility] Comment on above: Performed By: #### R GAS TRUCK DRIVER ####[address] [address] Lab Director: Ramiro Mark MD Coronavirus 229E Not detected Normal [facility] Comment on above: Performed By: #### R GAS TRUCK DRIVER ####[address] [address] Lab Director: Ramiro Mark MD Coronavirus HKU1 Not detected Normal [facility] Comment on above: Performed By: #### R GAS TRUCK DRIVER ####[address] [address] Lab Director: Ramiro Mark MD Coronavirus NL63 Not detected Normal [facility] Comment on above: Performed By: #### R GAS TRUCK DRIVER ####[address] [phone] Director: Ramiro Mark MD Coronavirus OC43 Not detected [facility] Comment on above: Performed By: #### R GAS TRUCK DRIVER ####[address] [phone] Director: Ramiro Mark MD Human Metapneumo Not detected Normal [facility] Comment on above: Performed By: #### R GAS TRUCK DRIVER ####[address] [phone] Director: Ramiro Mark MD Influenza A Not detected [facility] Comment on above: Performed By: #### R GAS TRUCK DRIVER ####[address] [place], [place] [phone] Director: Ramiro Mark MD Influenza B Not detected Normal [facility] Comment on above: Performed By: #### R GAS TRUCK DRIVER ####[address] [place], [place] [phone] Director: Ramiro Mark MD Mycoplas.pneumoniae Not detected Normal [facility] Comment on above: Result Comment: Perf ormed by multiplexed nucleic acid assay. Performed By: #### R GAS TRUCK DRIVER ####[address] [address] Lab Director: Ramiro Mark MD Parainfluenza 1 Not detected Normal [facility] Comment on above: Performed By: #### R GAS TRUCK DRIVER ####[address] [address] Lab Director: Ramiro Mark MD Parainfluenza 2 Not detected Normal [facility] Comment on above: Performed By: #### R GAS TRUCK DRIVER ####[address] [address] Lab Director: Ramiro Mark MD Parainfluenza 3 Not detected Normal [facility] Comment on above: Performed By: #### R GAS TRUCK DRIVER ####[address] [address] Lab Director: Ramiro Mark MD Parainfluenza 4 Not detected Normal [facility] Comment on above: Performed By: #### R GAS TRUCK DRIVER ####[address] [address] Lab Director: Ramiro Mark MD Resp Syncytial Virus Not detected Normal [facility] Comment on above: Performed By: #### R GAS TRUCK DRIVER ####[address] [address] Lab Director: Ramiro Mark MD Rhino/Enterovirus Not detected Normal [facility] Comment on above: Performed By: #### R GAS TRUCK DRIVER ####[address] [place] [address] Lab Director: Ramiro Mark MD SARS-CoV-2 (COVID-19) RNA MEETA+probe Ql (Unsp spec) Not detected Normal [facility] Comment on above: Performed By: #### R GAS TRUCK DRIVER ####[facility] [address] [place] [address] Lab Director: Ramiro Mark MD Source: .NASOPHARYNGEAL SWAB Normal [facility] Comment on above: Performed By: #### R GAS TRUCK DRIVER ####[facility] [address] [place], [place] [phone] lab Director: Ramiro Mark MD Respiratory Panel, Molecular , with COVID-19 (Restricted: peds pts or suitable admitted adults)on 09-28-2024 Adenovirus DNA MEETA+non-probe Ql (Nph) Not detected Not Detected [facility] B. parapertussis [id number] DNA MEETA+non-probe Ql (Nph) Not detected Not Detected [facility] B. pertussis DNA MEETA+probe Ql (Unsp spec) Not detected Not Detected [facility] C. pneumoniae DNA MEETA+non-probe Ql (Nph) Not detected Not Detected [facility] FLUAV RNA MEETA+non-probe Ql (Nph) Not detected Not Detected [facility] FLUBV RNA MEETA+non-probe Ql (Nph) Not detected Not Detected [facility] HCoV 229E RNA MEETA+non-probe Ql (Nph) Not detected Not Detected [facility] HCoV HKU1 RNA MEETA+non-probe Ql (Nph) Not detected Not Detected [facility] HCoV NL63 RNA MEETA+non-probe Ql (Nph) Not detected Not Detected [facility] HCoV OC43 RNA MEETA+non-probe Ql (Nph) Not detected Not Detected [facility] hMPV RNA MEETA+non-probe Ql (Nph) Not detected Not Detected [facility] M. pneumoniae DNA MEETA+non-probe Ql (Nph) Not detected Not Detected [facility] Parainfluenza virus 1 RNA MEETA+non-probe Ql (Nph) Not detected Not Detected [facility] Parainfluenza virus 2 RNA MEETA+non-probe Ql (Nph) Not detected Not Detected [facility] Parainfluenza virus 3 RNA MEETA+non-probe Ql (Nph) Not detected Not Detected [facility] Parainfluenza virus 4 RNA MEETA+non-probe Ql (Nph) Not detected Not Detected [facility] Rhinovirus+Enterovirus RNA MEETA+non-probe Ql (Nph) Not detected Not Detected [facility] RSV RNA MEETA+non-probe Ql (Nph) Not detected Not Detected [facility] SARS-CoV-2 (COVID-19) RNA MEETA+non-probe Ql (Nph) Not detected Not Detected [facility] Specimen Description .NASOPHARYNGEAL SWAB [facility] Sedimentation Rateon 024 ESR Photometric method (Bld) [Velocity] 24 High [facility] Interpretation and review of laboratory results Abnormal [facility] Sedimentation Rate 24 mm/Hr High 0-20 [facility] Comment on above: Performed By: #### P RCAL, CRP, MYCM, GLYHGB, TROPI, SED, CDP, LACTIC, IOCAL, BMPX ####[facility] [address] [place], [place] [id number] Lab Director: Ramiro Mark MD#### AGLYCO ####[facility] [address] [place], [place] [id number] Lab Director: iWl Swanson MD Strep Pneumoniae Antigenon 1 11-29-2023 S. pneumoniae Ag Ql (Unsp spec) Negative [facility] Specimen source Nom (Unsp spec) .URINE [facility] Strep pneum Ag,CSF/Uron - Strep pneum Ag Negative Normal [facility] Comment on above: Result Comment: Stre p pneumoniae antigen not detected Performed By: #### S PNAG ####[employer] [address] [place], [place] [id number] Lab Director: Ramiro Mark MD Strep pneu Ag Source .URINE Normal [facility] Comment on above: Performed By: #### S PNAG ####[facility] [address] [place], [place] [id number] lab Director: Ramiro Mark MD TYPE AND SCREENon 09-28-2024 ABO and Rh group Nom (Bld) Blood group O Rh(D) positive [facility] Arm Band Number [id number] [facility] Blood Bank Sample Expiration 10/01/2024,2359 [facility] Blood group antibodies identified Nom Negative [facility] Troponinon 09-28-2024 Troponin I.cardiac High sensitivity method [Mass/Vol] 93 ng/L Critically high 0 - 22 ng/L [facility] Troponin, High Sens 93 ng/L Critically high 0-22 [facility] Comment on above: Result Comment: High Sensitivity Troponin values cannot be compared with other Troponin methodologies.Previous Alert Value Reported Performed By: #### P HO, MG, BMP, TROPI, LACTIC ####[facility] [address] [place] [address] Lab Director: Ramiro Mark MD Interpretation and review of laboratory results Abnormal [facility] Troponin I.cardiac High sensitivity method [Mass/Vol] 98 ng/L Critically high 0 - 22 ng/L [facility] Troponin, High Sens 98 ng/L Critically high 0-22 [facility] Comment on above: Result Comment: High Sensitivity Troponin values cannot be compared with other Troponin methodologies.Previous Alert Value Reported Performed By: #### T ROPI ####[facility] [address] [place] [address] Lab Director: Ramiro Mark MD Troponin I.cardiac High sensitivity method [Mass/Vol] 97 ng/L Critically high 0 - 22 ng/L [facility] Troponin, High Sens 97 ng/L Critically high 0-22 [facility] Comment on above: Result Comment: High Sensitivity Troponin values cannot be compared with other Troponin methodologies. Performed By: #### P RCAL, CRP, MYCM, GLYHGB, TROPI, SED, CDP, LACTIC, IOCAL, BMPX ####[facility] [address] [place] [address] Lab Director: Ramiro Mark MD#### AGLYCO ####[facility] [address] [place] [address] Lab Director: Wil Swanson MD Interpretation and review of laboratory results Abnormal [facility] Troponin I.cardiac High sensitivity method [Mass/Vol] 65 ng/L Critically high 0 - 22 ng/L [facility] Comment on above: Specimen hemolysis h as exceeded the interference as defined by Jaime. Value may be falsely decreased. Suggest recollection if clinically indicated. High Sensitivity Troponin values cannot be compared with other Troponin methodologies. [facility] Troponin, High Sens 65 ng/L Critically high 0-22 [facility] Comment on above: Result Comment: Spec imen hemolysis has exceeded the interference as defined by Jaime. Value may be falsely decreased. Suggest recollection if clinically indicated. High Sensitivity Troponin values cannot be compared with other Troponin methodologies. Performed By: #### B MP #### [facility] [address] [place] [address] [place] [address] Custom Clothier: Ramiro Santillan MD Interpretation and review of laboratory results Abnormal [facility] Troponin I.cardiac High sensitivity method [Mass/Vol] 53 ng/L Critically high 0 - 22 ng/L [facility] Comment on above: High Sensitivity Tro ponin values cannot be compared with other Troponin methodologies. [facility] Troponin, High Sens 53 ng/L Critically high 0-22 [facility] Comment on above: Result Comment: High Sensitivity Troponin values cannot be compared with other Troponin methodologies. Performed By: #### B MP #### [facility] [address] [place] [address] [place] [address] Custom Clothier: Ramiro Santillan MD Troponin I.cardiac High sensitivity method [Mass/Vol] 64 ng/L Critically high 0 - 22 ng/L [facility] Comment on above: High Sensitivity Tro ponin values cannot be compared with other Troponin methodologies. Troponin, High Sens 64 ng/L Critically high 0-22 [facility] Comment on above: Result Comment: High Sensitivity Troponin values cannot be compared with other Troponin methodologies. Performed By: #### B H #### [facility] [address] [place], [place] [phone] Custom Clothier: Ramiro Santillan MD Type + Screenon 09-28-2024 Type + Screen Sample Expiration 10/01/2024,2359 Arm Band Number [id number] ABO/Rh(D) O POSITIVE Antibody Screen NEGATIVE Normal [facility] Comment on above: Performed By: #### T YS #### [facility] [address] [place], [place] [phone] Custom Clothier: Ramiro Santillan MD UA w/Reflex Cultureon 2023 Bilirubin, SemiQt,Ur Negative Normal NEG [facility] Comment on above: Performed By: #### U AX, UMICAO #### [facility] [address] [place], [place] [phone] Custom Clothier: Ramiro Santillan MD Blood, Urine 2+ Abnormal NEG [facility] Comment on above: Performed By: #### U AX, UMICAO #### [facility] [address] [place], [place] [phone] Custom Clothier: Ramiro Santillan MD Clarity (U) Clear Normal CLEAR [facility] Comment on above: Performed By: #### U AX, UMICAO #### [facility] [address] [place] [address] Custom Clothier: Ramiro Santillan MD Color (U) Yellow Normal YEL [facility] Comment on above: Performed By: #### U AX, UMICAO #### [facility] [address] [place], [place] [phone] Custom Clothier: Ramiro Santillan MD Glucose Ql (U) 3+ mg/dL Abnormal NEG [facility] Comment on above: Performed By: #### U AX, UMICAO #### [facility] [address] [place] [address] [place], [place] [id number] Custom Clothier: Ramiro Santillan MD Ketones Ql (U) 1+ mg/dL Abnormal NEG [facility] Comment on above: Performed By: #### U AX, UMICAO #### [facility] [address] [place] [address] [place] [address] Custom Clothier: Ramiro Santillan MD Leukocyte esterase Test strip Ql (U) Negative Normal NEG [facility] Comment on above: Performed By: #### U AX, UMICAO #### [address] [place] [address] Custom Clothier: Ramiro Santillan MD Nitrite,Ur Negative Normal NEG [facility] Comment on above: Performed By: #### U AX, UMICAO #### [facility] [address] [place] [address] [address] [place], [place] [id number] Custom Clothier: Ramiro Santillan MD PH,Ur 6.5 Normal 5.0-9.0 [facility] Comment on above: Performed By: #### U AX, UMICAO #### [facility] [address] [place] [address] [place] [address] Custom Clothier: Ramiro Santillan MD Protein Ql (U) 4+ mg/dL Abnormal NEG [facility] Comment on above: Performed By: #### U AX, UMICAO #### [facility] [address] [place] [address] [place] [address] Custom Clothier: Ramiro Santillan MD Spec. [place],Ur 1.015 Normal 1.010-1.020 [facility] Comment on above: Performed By: #### U AX, UMICAO #### [facility] [address] [place] [address] [place] [address] Custom Clothier: Ramiro Santillan MD Urobilinogen,Ur Normal Normal 0.0-1.0 [facility] Comment on above: Performed By: #### U NARCISO MARES #### [facility] [address] [place] [address] Custom Clothier: Ramiro Santillan MD Kidneyon 09-28-2024 Radiology Study observation (narrative) [facility] Urinalysis with Reflex to Cu ltureon 09-28-2024 Bilirubin Ql (U) Negative [facility] Clarity (U) Clear Clear [facility] Color (U) Yellow Yellow [facility] Glucose Test strip (U) [Mass/Vol] 3+ Abnormal NEGATIVE mg/dL [facility] Hemoglobin Auto test strip Ql (U) 2+ Abnormal NEGATIVE [facility] Interpretation and review of laboratory results Abnormal [facility] Ketones (U) [Mass/Vol] 1+ Abnormal NEGAT RAJAN mg/dL [facility] Leukocyte esterase Test strip Ql (U) Negative NEGATIVE [facility] Nitrite Ql (U) Negative NEGATIVE [facility] pH (U) 6.5 [pH] 5.0 - 9.0 [facility] Protein (U) [Mass/Vol] 4+ Abnormal NEGAT RAJAN mg/dL [facility] Specific gravity (U) [Rel density] 1.015 1.010 - 1.020 [facility] Urobilinogen Qn (U) Normal 0.0 - 1. 0 EU/dL [facility] Urinalysis,Microon 4 Epithelial cells LM Ql (Urine sed) 0 TO 2 Normal 0-5 [facility] Comment on above: Performed By: #### U NARCISO MARES #### [facility] [address] [place] [address] Custom Clothier: Ramiro Santillan MD Urine RBC's 2 TO 5 Normal 0-2 [facility] Comment on above: Performed By: #### U JOEY MARESICAO #### [facility] [address] [place] [address] Custom Clothier: Ramiro Santillan MD Urine WBC's 0 TO 2 Normal 0-5 [facility] Comment on above: Performed By: #### U AX, NARCISO #### [facility] [address] [place] [address] Custom Clothier: Ramiro Santillan MD Urine Drug Screenon 09-28-20 24 Amphetamines Ql (U) Negative NEGATIVE [facility] Comment on above: Cutoff: 1000 [...] 50 ng/ml Cocaine Ql (U) Negative NEGATIVE [facility] Comment on above: Cutoff: [...] be ordered if clinically indicated. [facility] Venous Blood Gaseson 024 Jody Test NOT APPLICABLE Normal [facility] in Hospital Comment on above: Performed By: #### B MP #### [facility] [address] [place], [place] [id number] Custom Clothier: Ramiro Santillan MD Body Temp. 37.0 Normal [facility] Comment on above: Performed By: #### B MP #### [facility] [address] [place], [place] [id number] Custom Clothier: Ramiro Santillan MD FIO2 35 Normal [facility] Comment on above: Performed By: #### B MP #### [facility] [address] [place] [address] Custom Clothier: Ramiro Santillan MD HCO3 (Bld) [Moles/Vol] 21.0 mmol/L Low 24.0-30.0 M [facility] Comment on above: Performed By: #### B MP #### [facility] [address] [place], [place] [id number] Custom Clothier: Ramiro Santillan MD Negative Base Excess 4.3 mmol/L High 0.0-2.0 [facility] Comment on above: Performed By: #### B MP #### [facility] [address] [place] [address] Custom Clothier: Ramiro Santillan MD O2 Device/Flow/% VENTILATOR Normal [facility] Comment on above: Performed By: #### B MP #### [facility] [address] [place], [place] [id number] Custom Clothier: Ramiro Santillan MD Oxygen saturation in Blood 99.0 % High 60.0-85.0 [facility] Comment on above: Performed By: #### B MP #### [facility] [address] [place] [address] Custom Clothier: Ramiro Santillan MD pCO2 39.8 mm Hg Normal 39-55 [facility] Comment on above: Performed By: #### B MP #### [facility] [address] [place], [place] [id number] Custom Clothier: Ramiro Santillan MD Pco2 Adj'd for Temp. 39.8 mmHg Normal 39.0-55.0 [facility] Comment on above: Performed By: #### B MP #### [facility] [address] [place], [place] 8577483 Custom Clothier: Ramiro Santillan MD pH (Bld) 7.341 [pH] Normal 7.32-7.42 [facility] Comment on above: Performed By: #### B MP #### [facility] [address] [place], [place] 5503683 Custom Clothier: Ramiro Santillan MD pH Adjst'd for Temp. 7.341 Normal 7.320-7.420 [facility] Comment on above: Performed By: #### B MP #### [facility] [address] [place], [place] 0809683 Custom Clothier: Ramiro Santillan MD pO2 164.8 mm Hg High 30.0-50.0 [facility] Comment on above: Performed By: #### B MP #### [address] [place], [place] 8219383 Custom Clothier: Ramiro Santillan MD pO2 Adj'd for Temp. 164.8 mmHg High 30.0-50.0 [facility] Comment on above: Performed By: #### B MP #### [facility] [address] [place] [address] [place] [place], [place] [id number] Custom Clothier: Ramiro Santillan MD XR ABDOMEN FOR NG/OG/NE TUBE PLACEMENTon 09-28-2024 XR ABDOMEN FOR NG/OG/NE TUBE PLACEMENT Normal [facility] MHPN RIS CONSOLIDATED MHPN RIS CONSOLIDATED [facility] Radiology Study observation (narrative) [facility] XR ABDOMEN FOR NG/OG/NE TUBE PLACEMENTOrdered By: Nawaf Perez on 09-28-2024 [facility] Work Phone: XR CHEST PORTABLEon 09-28-20 XR [...] Lito Marie MD 09/28/24 Final result Normal [facility] Physician Referralon 024 Physician Referral [id number] IFF Normal [facility] Physician Referralon 024 Physician Referral [id number] IFF Normal [facility] Q Fever Serology,IFAon 01-27 Q-Fever,Phase I IgG Negative Normal Negative [facility] Comment on above: Result Comment: (NOT [...] be performed. Performed By: #### A QFEV ####[address] [address] lab Director: Wil Swanson MD Q-Fever,Phase II IgG Negative Normal Negative [facility] Comment on above: Result Comment: (NOT [...] negative.No further testing will be performed.Performed By: [facility] [place] [id number] Director: Rogelio Miranda MD, PhDCLIA Number: [id number] Performed By: #### A QFEV ####[address] [address] lab Director: Wil Swanson MD Cult,Bloodon 01-24-2024 Cult,Blood Specimen Description .BLOOD Special Requests L HAND 5 ML Culture NO GROWTH 5 DAYS Report Status FINAL 01/24/2024 Normal [facility] Comment on above: Performed By: #### B C ####[address] [address] Lab Director: Ramiro Mark MD Cult,Blood Specimen Description .BLOOD Special Requests R HAND 5 ML Culture NO GROWTH 5 DAYS Report Status FINAL 01/24/2024 Normal [facility] Comment on above: Performed By: #### B C ####[facility] [place] [address] Lab Director: Ramiro Mark MD Brucella Ab, IgG/IgMon 01-22 Brucella Ab, IgG/M <1:20 Normal <1:20 [facility] Comment on above: Result Comment: (NOT [...] with a history of potential exposures.Performed By: [facility] [place], [place] [address]Xtweohfuox Director: Rogelio Miranda MD, PhDCLIA Number: [id number] Performed By: #### A BRUAB ####[facility] [place] [address] Lab Director: Wil Swanson MD West Nile Virus, CSFon 01-22 WNV Ab IgG, CSF 0.05 IV Normal <=1.29 [facility] Comment on above: Result Comment: (NOT [...] other members of the Flaviviridae family,such as Greer encephalitis virus, show extensivecross-reactivity with West Nile virus, serologic testing specificfor these species should be considered.The detection of antibodies to West Nile virus in cerebrospinalfluid may indicate central nervous system infection. However,consideration must be given to possible contamination by blood ortransfer of serum antibodies across the blood-brain barrier.This test was developed and its performance characteristicsdetermined by [facility]. It has not been cleared orapproved by the [place] Food and Drug Administration. This test wasperformed in a CLIA certified laboratory and is intended forclinical purposes. Performed By: #### C TP, CGLU, MEVP, CFVD, CFCNT ####[facility] [address] [place] [address] Lab Director: Ramiro Mark MD#### AWNCSF, ALYMCT ####[facility] [facility] [address] [place] [address] Lab Director: Wil Swanson MD WNV Ab IgM, CSF 0.00 IV Normal <=0.89 [facility] Comment on above: Result Comment: (NOT [...] other members of the Flaviviridae family,such as Greer encephalitis virus, show extensivecross-reactivity with West Nile virus, serologic testing specificfor these species should be considered.The detection of antibodies to West Nile virus in cerebrospinalfluid may indicate central nervous system infection. However,consideration must be given to possible contamination by blood ortransfer of serum antibodies across the blood-brain barrier.This test was developed and its performance characteristicsdetermined by [facility]. It has not been cleared orapproved by the US Food and Drug Administration. This test wasperformed in a CLIA certified laboratory and is intended forclinical purposes.Performed By: [address] [place], [place] [address]Rqeyrypwkd Director: Rogelio Miranda MD, PhDCLIA Number: [id number] Performed By: #### C TP, CGLU, MEVP, CFVD, CFCNT ####[facility] [place] [address] Lab Director: Ramiro Mark MD#### AWNCSF, ALYMCT ####[facility] [address] [place] [address] Lab Director: Wil Swanson MD Basic Metabolic Panelon 0 Anion gap [Moles/Vol] 9 mmol/L 9 - 16 mmol/L [facility] Calcium [Mass/Vol] 8.3 mg/dL Low 8.6 - 10. 4 mg/dL [facility] [employer] Chloride [Moles/Vol] 105 mmol/L 98 - 10 7 mmol/L [facility] CO2 [Moles/Vol] 22 mmol/L 20 - 31 mmol/L [facility] AnalyticsUN[facility] Creatinine [Mass/Vol] 1.3 mg/dL High 0.70 - 1.20 mg/dL [facility] GFR/1.73 sq M.predicted MDRD (S/P/Bld) [Vol rate/Area] 69 mL/min/{1.73_m2} - PINF [facility] [employer] Glucose [Mass/Vol] 225 mg/dL High 74 - 99 mg/dL [facility]STITUTEStreetShares, [facility] Interpretation and review of laboratory results Abnormal [facility] Potassium [Moles/Vol] 3.8 mmol/L 3.7 - 5.3 mmol/L [facility] Sodium [Moles/Vol] 136 mmol/L 136 - 145 mmol/L [facility] Urea nitrogen [Mass/Vol] 25 mg/dL High 6 - 20 mg/dL [facility] Basic Metabolic Profon 01-21 Anion gap [Moles/Vol] 9 mmol/L Normal 9-16 [facility] Comment on above: Performed By: #### M G, BMP, CHELO, CDP ####[facility] [address] [place], [place] [address])[phone] Director: Ramiro Mark MD Calcium [Mass/Vol] 8.3 mg/dL Low 8.6-10.4 [facility] Comment on above: Performed By: #### M G, BMP, CHELO, CDP ####[facility] Hospital[facility] [address] [place], [place] [id number])[phone] Director: Ramiro Mark MD Chloride [Moles/Vol] 105 mmol/L Normal 98-107 [facility] Comment on above: Performed By: #### M G, BMP, CHELO, CDP ####[employer] [address] [place], [place] [id number])[phone] Director: Ramiro Mark MD CO2 [Moles/Vol] 22 mmol/L Normal 20-31 [facility] Comment on above: Performed By: #### M G, BMP, CHELO, CDP ####[employer] [address] [place] [address] Lab Director: Ramiro Mark MD Creatinine [Mass/Vol] 1.3 mg/dL High 0.70-1.20 [facility] Comment on above: Performed By: #### M G, BMP, CHELO, CDP ####[facility] HospitalG[facility] [address] [place], [place] [address])[phone] Director: Ramiro Mark MD GFR/1.73 sq M.predicted among non-blacks MDRD (S/P/Bld) [Vol rate/Area] 69 mL/min/{1.73_m2} Normal >60 [facility] Comment on above: Result Comment: Thes [...] #### M LEENA Arana, CHELO, CDP ####[facility] [address] [place], [place] [address])[phone] Director: Ramiro Mark MD Glucose [Mass/Vol] 225 mg/dL High 74-99 [facility] Comment on above: Performed By: #### LEENA Purcell, CHELO, CDP ####[facility] [address] [place], [place] [address])[phone] Director: Ramiro Mark MD Potassium [Moles/Vol] 3.8 mmol/L Normal 3.7-5.3 [facility] Comment on above: Performed By: #### LEENA Purcell, CHELO, CDP ####[facility] [address] [place], [place] [address])[phone] Director: Ramiro Mark MD Sodium [Moles/Vol] 136 mmol/L Normal 136-145 [facility] Comment on above: Performed By: #### LEENA Purcell, CHELO, CDP ####[facility] [address] [place], [place] [address])[phone] Director: Ramiro Mark MD Urea nitrogen [Mass/Vol] 25 mg/dL High 6-20 [facility] Comment on above: Performed By: #### LEENA Purcell, CHELO, CDP ####[facility] [address] [place], [place] [address])[phone] Director: Ramiro Mark MD CBC with Auto Differentialon 01-22-2024 Basophils (Bld) [#/Vol] 0.05 10*3/uL [facility] Basophils/100 WBC (Bld) 1 % 0 - 2 % [facility] Eosinophils (Bld) [#/Vol] 0.18 10*3/uL [facility] Eosinophils/100 WBC (Bld) 2 % 1 - 4 % [facility] Erythrocyte distribution width (RBC) [Ratio] 13.9 % 11.8 - 14.4 % [facility] Hematocrit (Bld) [Volume fraction] 31.6 % Low 40.7 - 50.3 % [facility] Hemoglobin (Bld) [Mass/Vol] 10.2 g/dL Low 13.0 - 17.0 g/dL [facility] Immature granulocytes (Bld) [#/Vol] [facility] Immature granulocytes/100 WBC (Bld) 0 % 0 [facility] Interpretation and review of laboratory results Abnormal [facility] Lymphocytes/100 WBC (Bld) 21 % Low 24 - 43 % [facility] Lymphocytes/100 WBC (Bld) 1.58 % [facility] MCH (RBC) [Entitic mass] 29.3 pg 25.2 - 33.5 pg [facility] MCHC (RBC) [Mass/Vol] 32.3 g/dL 28.4 - 34.8 g/dL [facility] MCV (RBC) [Entitic vol] 90.8 fL 82.6 - 102.9 fL [facility] Monocytes/100 WBC (Bld) 7 % 3 - 12 % [facility] Monocytes/100 WBC (Bld) 0.52 % [facility] Neutrophils/100 WBC (Bld) 69 % High 36 - 65 % [facility] Nucleated RBC/100 WBC (Bld) [Ratio] 0.0 % 0.0 per 100 WBC [facility] Platelet mean volume (Bld) [Entitic vol] 10.8 fL 8.1 - 13.5 fL [facility] Platelets (Bld) [#/Vol] 164 10*3/uL [facility] RBC (Bld) [#/Vol] 3.48 10*6/uL Low 4.21 - 5.7 7 m/uL [facility] Segmented neutrophils/100 WBC (Bld) 5.02 % [facility] WBC other (Bld) [#/Vol] 7.4 [facility] CBC with Diffon 01-22-2024 Abs. Basophil 0.05 k/uL Normal 0.00-0.20 [facility] Comment on above: Performed By: #### M G, BMP, CHELO, CDP ####[facility] [address] [place], [place] [address])[phone] Director: Ramiro Mark MD Abs.Imm.Granulocyte <0.03 Normal 0.00-0.30 [facility] Comment on above: Performed By: #### M G, BMP, CHELO, CDP ####[facility] [address] [place], [place] [address])[phone] Director: Ramiro Mark MD Abs.Neutrophil (Seg) 5.02 k/uL Normal 1.50-8.10 [facility] Comment on above: Performed By: #### M G, BMP, CHELO, CDP ####[facility] [address] [place], [place] [address])[phone] Director: Ramiro Mark MD Basophils/100 WBC (Bld) 1 % Normal 0-2 [facility] Comment on above: Performed By: #### M G, BMP, CHELO, CDP ####[facility] [address] [place], [place] [address])[phone] Director: Ramiro Mark MD Eosinophils (Bld) [#/Vol] 0.18 10*3/uL Normal 0.00-0.44 [facility] Comment on above: Performed By: #### M G, BMP, CHELO, CDP ####[facility] [address] [place], [place] [address])[phone] Director: Ramiro Mark MD Eosinophils/100 WBC (Bld) 2 % Normal 1-4 [facility] Comment on above: Performed By: #### M G, BMP, CHELO, CDP ####[employer] [address] [place], [place] [id number])[phone] Director: Ramiro Mark MD Erythrocyte distribution width (RBC) [Ratio] 13.9 % Normal 11.8-14.4 [facility] Comment on above: Performed By: #### M G, BMP, CHELO, CDP ####[facility] [address] [place], [place] [address])[phone] Director: Ramiro Mark MD Hematocrit (Bld) [Volume fraction] 31.6 % Low 40.7-50.3 [facility] Comment on above: Performed By: #### M G, BMP, CHELO, CDP ####[facility] [address] [place], [place] [address])[phone] Director: Ramiro Mark MD Hemoglobin (Bld) [Mass/Vol] 10.2 g/dL Low 13.0-17.0 [facility] Comment on above: Performed By: #### M G, BMP, CHELO, CDP ####[facility] [address]44[address] [place], [place] [address])[phone] Director: Ramiro Mark MD Immature granulocytes/100 WBC (Bld) 0 % Normal 0 [facility] Comment on above: Performed By: #### M G, BMP, CHELO, CDP ####[facility] T[address]24[address] [place], [place] [address])[phone] Director: Ramiro Mrak MD Lymphocytes (Bld) [#/Vol] 1.58 10*3/uL Normal 1.10-3.70 [facility] Comment on above: Performed By: #### M G, BMP, CHELO, CDP ####[facility] [address] [place], [place] [phone])[phone] Director: Ramiro Mark MD Lymphocytes/100 WBC (Bld) 21 % Low 24-43 [facility] Comment on above: Performed By: #### M G, BMP, CHELO, CDP ####[facility] [address]beh[address]qyi[address]3 [place], [place] [phone] Director: Ramiro Mark MD MCH (RBC) [Entitic mass] 29.3 pg Normal 25.2-33.5 [facility] Comment on above: Performed By: #### M G, BMP, CHELO, CDP ####[facility] [address] [place], [place] [phone])[phone] Director: Ramiro Mark MD MCHC (RBC) [Mass/Vol] 32.3 g/dL Normal 28.4-34.8 [facility] Comment on above: Performed By: #### M G, BMP, CHELO, CDP ####[facility] [address] [place] [address] [id number])[phone] Director: Ramiro Mark MD MCV (RBC) [Entitic vol] 90.8 fL Normal 82.6-102.9 [facility] Comment on above: Performed By: #### M G, BMP, CHELO, CDP ####[facility] [address] [place] [address] [phone])[phone] Director: Ramiro Mark MD Monocytes (Bld) [#/Vol] 0.52 10*3/uL Normal 0.10-1.20 [facility] Comment on above: Performed By: #### M G, BMP, CHELO, CDP ####[facility] [address] [place] [address] [id number])[phone] Director: Ramiro Mark MD Monocytes/100 WBC (Bld) 7 % Normal 3-12 [facility] Comment on above: Performed By: #### M G, BMP, CHELO, CDP ####[facility] [address] [place], [place] [phone])[phone] Director: Ramiro Mark MD Neutrophil (Seg) 69 % High 36-65 [facility] Comment on above: Performed By: #### M G, BMP, CHELO, CDP ####[facility] [address] [place] [address], [place] [id number])[phone] Director: Ramiro Mark MD NRBC Automated 0.0 per 100 WBC Normal 0.0 [facility] Comment on above: Performed By: #### M G, BMP, CHELO, CDP ####[facility] [address]151 [place] [address] Lab Director: Ramiro Mark MD Platelet mean volume (Bld) [Entitic vol] 10.8 fL Normal 8.1-13.5 [facility] Comment on above: Performed By: #### M G, BMP, CHELO, CDP ####[address] [address] Lab Director: Ramiro Mark MD Platelets (Bld) [#/Vol] 164 10*3/uL Normal 138-453 [facility] Comment on above: Performed By: #### M G, BMP, CHELO, CDP ####[address] [address] Lab Director: Ramiro Mark MD RBC (Bld) [#/Vol] 3.48 10*6/uL Low 4.21-5.77 [facility] Comment on above: Performed By: #### M G, BMP, CHELO, CDP ####[address] [address] Lab Director: Ramiro Mark MD WBC (Bld) [#/Vol] 7.4 10*3/uL Normal 3.5-11.3 [facility] Comment on above: Performed By: #### M G, BMP, CHELO, CDP ####[address] [address] Lab Director: Ramiro Mark MD Cult,CSFon 01-22-2024 Cult,CSF Normal [facility] Comment on above: Performed By: #### C FC ####[address] [id number] lab Director: Ramiro Mark MD Culture, CSFon 01-22-2024 Microorganism identified Cx Nom (Unsp spec) NO GROWTH 3 DAYS [facility] Microorganism or agent identified Nom (Unsp spec) RARE NEUTROPHILS [facility] Microorganism or agent identified Nom (Unsp spec) NO ORGANISMS SEEN [facility] Microorganism or agent identified Nom (Unsp spec) Gram stain made from cytocentrifuged specimen. Organisms and cells will be concentrated. [facility] Specimen Description .CSF [facility] Glucose,Whole Bloodon 2023 Glucose [Mass/Vol] 164 mg/dL High 75-110 [facility] Glucose [Mass/Vol] 293 mg/dL High -110 [facility] Glucose [Mass/Vol] 172 mg/dL [address] [facility] HSV DNA, PCRon 01-22-2024 HSV 1 subtype by PCR Not detected Normal [facility] Comment on above: Performed By: #### A HSVPC ####[facility] [address] [place] [address] lab Director: Ramiro Mark MDA[address] [address] lab Director: Wil Swanson MD HSV 2 subtype by PCR Not detected Normal [facility] Comment on above: Result Comment: (NOT E)INTERPRETIVE INFORMATION: HSV-1 and HSV- 2 Subtype by PCRA negative result does not rule out the presence of PCR inhibitorsin the patient specimen or test-specific nucleic acid inconcentrations below the level of detection by this test.This test was developed and its performance characteristicsdetermined by [facility]. It has not been cleared orapproved by the [place] Food and Drug Administration. This test wasperformed in a CLIA certified laboratory and is intended forclinical purposes.Performed By: [facility] [place], [place] [address]Laboratory Director: Rogelio Miranda MD, PhDCLIA Number: [id number] Performed By: #### A HSVPC ####[facility] [address] [place] [address] lab Director: KAYLYNN Moreno [address] [place] [address] lab Director: Wil Swanson MD Herpes simplex virus PCRon 0 01-22-2024 HSV 1 SUBTYPE BY PCR Not detected TRIP [facility] HSV 2 SUBTYPE BY PCR Not detected TRIP [facility] HSV Source .CSF [facility] MR Brain WO contraston 01-21 [facility] CONSOLIDATED [facility]IDATED [facility] Radiology Study observation (narrative) [facility] MRI BRAIN WO CONTRASTon MRI BRAIN WO CONTRAST Normal Sydni cy [facility] Magnesiumon 01-22-2024 Magnesium [Mass/Vol] 2.2 mg/dL 1.6 - 2 .6 mg/dL [facility] Magnesium [Mass/Vol] 2.2 mg/dL Normal 1.6-2.6 [facility] Comment on above: Performed By: #### M G, BMP, CHELO, CDP ####[facility] [address] [place], [place] [id number] lab Director: Ramiro Mark MD No Panel Informationon 01-21 [facility] POC Glucose Fingerstickon Glucose [Mass/Vol] 164 mg/dL High 75 - 110 mg/dL [facility] Interpretation and review of laboratory results Abnormal [facility] Glucose [Mass/Vol] 293 mg/dL High 75 - 110 mg/dL [facility] Interpretation and review of laboratory results Abnormal [facility] Glucose [Mass/Vol] 172 mg/dL High 75 - 110 mg/dL [facility] Interpretation and review of laboratory results Abnormal [facility] Phosphoruson 01-22-2024 Phosphate [Mass/Vol] 3.2 mg/dL 2.5 - 4 .5 mg/dL [facility] Phosphorus, Inorg.on 024 Phosphorus, Inorg. 3.2 mg/dL Normal 2.5-4.5 [facility] Comment on above: Performed By: #### M G, BMP, CHELO, CDP ####[facility] [address]cap[address] [place], [place] [id number] lab Director: Ramiro Mark MD Basic Metabolic Panelon Anion gap [Moles/Vol] 13 mmol/L 9 - 16 mmol/L [facility] Calcium [Mass/Vol] 7.9 mg/dL Low 8.6 - 10. 4 mg/dL [facility] Chloride [Moles/Vol] 105 mmol/L 98 - 10 7 mmol/L [facility] CO2 [Moles/Vol] 18 mmol/L Low 20 - 31 mmol/L [facility] Creatinine [Mass/Vol] 1.5 mg/dL High 0.70 - 1.20 mg/dL [facility] GFR/1.73 sq M.predicted MDRD (S/P/Bld) [Vol rate/Area] 58 mL/min/{1.73_m2} Low - PINF [facility] Glucose [Mass/Vol] 287 mg/dL High 74 - 99 mg/dL [facility] Interpretation and review of laboratory results Abnormal [facility] Potassium [Moles/Vol] 4.2 mmol/L 3.7 - 5.3 mmol/L [facility] Sodium [Moles/Vol] 136 mmol/L 136 - 145 mmol/L [facility] Urea nitrogen [Mass/Vol] 29 mg/dL High 6 - 20 mg/dL [facility] Basic Metabolic Profon 01-20 Anion gap [Moles/Vol] 13 mmol/L Normal 9-16 [facility] Comment on above: Performed By: #### M G, CDP, CHELO, BMP ####[facility] Q[address]qcvszcuq1836 [place] [address] lab Director: Ramiro Mark MD Calcium [Mass/Vol] 7.9 mg/dL Low 8.6-10.4 [facility] Comment on above: Performed By: #### M G, CDP, CHELO, BMP ####[facility] [address]vcbofl2982 [place] [address] Lab Director: Ramiro Mark MD Chloride [Moles/Vol] 105 mmol/L Normal 98-107 [facility] Comment on above: Performed By: #### M G, CDP, CHELO, BMP ####[facility] [address]vcfnx8832 [place] [address] Lab Director: Ramiro Mark MD CO2 [Moles/Vol] 18 mmol/L Low 20-31 [facility] Comment on above: Performed By: #### M G, CDP, CHELO, BMP ####[facility] [address]97 [place] [address] Lab Director: Ramiro Mark MD Creatinine [Mass/Vol] 1.5 mg/dL High 0.70-1.20 [facility] Comment on above: Performed By: #### M G, CDP, CHELO, BMP ####[facility] [address]182 [place] [address] Lab Director: Ramiro Mark MD GFR/1.73 sq M.predicted among non-blacks MDRD (S/P/Bld) [Vol rate/Area] 58 mL/min/{1.73_m2} Low >60 [facility] Comment on above: Result Comment: Thes [...] By: #### M G, CDP, CHELO, BMP ####[facility] [address]ermhdsjfv3698 [place] [address] Lab Director: Ramiro Mark MD Glucose [Mass/Vol] 287 mg/dL High 74-99 [facility] Comment on above: Performed By: #### M G, CDP, CHELO, BMP ####[facility] G[address]vbpepbzy4617 [place], [place] [phone])[phone] Director: Ramiro Mark MD Potassium [Moles/Vol] 4.2 mmol/L Normal 3.7-5.3 [facility] Comment on above: Performed By: #### M G, CDP, CHELO, BMP ####[facility] [address]wt5541 [place] [address] Lab Director: Ramiro Mark MD Sodium [Moles/Vol] 136 mmol/L Normal 136-145 [facility] Comment on above: Performed By: #### M G, CDP, CHELO, BMP ####[facility] [address]ebdhm0980 [place] [address] Lab Director: Ramiro Mark MD Urea nitrogen [Mass/Vol] 29 mg/dL High 6-20 [facility] Comment on above: Performed By: #### M G, CDP, CHELO, BMP ####[facility] Hz[address]zlew8073 [place], [place] [phone] Director: Ramiro Mark MD CBC with Auto Differentialon 01-21-2024 Basophils (Bld) [#/Vol] 0.03 10*3/uL [facility] Basophils/100 WBC (Bld) 0 % 0 - 2 % [facility] Eosinophils (Bld) [#/Vol] 0.06 10*3/uL [facility] [employer] Eosinophils/100 WBC (Bld) 1 % 1 - 4 % [facility] Erythrocyte distribution width (RBC) [Ratio] 14.2 % 11.8 - 14.4 % [facility] Hematocrit (Bld) [Volume fraction] 31.9 % Low 40.7 - 50.3 % [facility] Hemoglobin (Bld) [Mass/Vol] 10.3 g/dL Low 13.0 - 17.0 g/dL [facility] Immature granulocytes (Bld) [#/Vol] 0.03 10*3/uL [facility] Immature granulocytes/100 WBC (Bld) 0 % 0 [facility] Interpretation and review of laboratory results Abnormal [facility] Lymphocytes/100 WBC (Bld) 14 % Low 24 - 43 % [facility] Lymphocytes/100 WBC (Bld) 1.29 % [facility] MCH (RBC) [Entitic mass] 29.3 pg 25.2 - 33.5 pg [facility] MCHC (RBC) [Mass/Vol] 32.3 g/dL 28.4 - 34.8 g/dL [facility] MCV (RBC) [Entitic vol] 90.6 fL 82.6 - 102.9 fL [facility] Monocytes/100 WBC (Bld) 8 % 3 - 12 % [facility] Monocytes/100 WBC (Bld) 0.70 % [facility] Neutrophils/100 WBC (Bld) 77 % High 36 - 65 % [facility] Nucleated RBC/100 WBC (Bld) [Ratio] 0.0 % 0.0 per 100 WBC [facility] Platelet mean volume (Bld) [Entitic vol] 10.7 fL 8.1 - 13.5 fL [facility] Platelets (Bld) [#/Vol] 162 10*3/uL [facility] RBC (Bld) [#/Vol] 3.52 10*6/uL Low 4.21 - 5.7 7 m/uL [facility] Segmented neutrophils/100 WBC (Bld) 7.13 % [facility] WBC other (Bld) [#/Vol] 9.2 [facility] CBC with Diffon 01-21-2024 Abs. Basophil 0.03 k/uL Normal 0.00-0.20 [facility] Comment on above: Performed By: #### M G, CDP, CHELO, BMP ####[address] [place] [address] Lab Director: Ramiro Mark MD Abs.Imm.Granulocyte 0.03 k/uL Normal 0.00-0.30 [facility] Comment on above: Performed By: #### M G, CDP, CHELO, BMP ####[facility] [address] [place], [place] [phone] Director: Ramiro Mark MD Abs.Neutrophil (Seg) 7.13 k/uL Normal 1.50-8.10 [facility] Comment on above: Performed By: #### M G, CDP, CHELO, BMP ####[facility] [address] [place], [place] [phone])[phone] Director: Ramiro Mark MD Basophils/100 WBC (Bld) 0 % Normal 0-2 [facility] Comment on above: Performed By: #### Vanesa Arana, CDP, CHELO, BMP ####[place], [place] [address])[phone] Director: Ramiro Mark MD Eosinophils (Bld) [#/Vol] 0.06 10*3/uL Normal 0.00-0.44 [facility] Comment on above: Performed By: #### M G, CDP, CHELO, BMP ####[facility] Q[address]ibbswd[address]4 [place], [place] [phone] Director: Ramiro Mark MD Eosinophils/100 WBC (Bld) 1 % Normal 1-4 [facility] Comment on above: Performed By: #### M G, CDP, CHELO, BMP ####[facility] [address] [place], [place] [phone] Director: Ramiro Mark MD Erythrocyte distribution width (RBC) [Ratio] 14.2 % Normal 11.8-14.4 [facility] Comment on above: Performed By: #### M G, CDP, CHELO, BMP ####[facility] [address] [place] [address] Lab Director: Ramiro Mark MD Hematocrit (Bld) [Volume fraction] 31.9 % Low 40.7-50.3 [facility] Comment on above: Performed By: #### Vanesa Arana, CDP, CHELO, BMP ####[facility] [id number] [place], [place] [id number] Director: Ramiro aMrk MD Hemoglobin (Bld) [Mass/Vol] 10.3 g/dL Low 13.0-17.0 [facility] Comment on above: Performed By: #### Vanesa Arana, CDP, CHELO, BMP ####[facility] K[address]163 [place], [place] [phone] Director: Ramiro Mark MD Immature granulocytes/100 WBC (Bld) 0 % Normal 0 [facility] Comment on above: Performed By: #### Vanesa Arana, CDP, CHELO, BMP ####[facility] [address] [place] [phone])[phone] Director: Ramiro Mark MD Lymphocytes (Bld) [#/Vol] 1.29 10*3/uL Normal 1.10-3.70 [facility] Comment on above: Performed By: #### Vanesa Arana, CDP, CHELO, BMP ####[facility] [address] [place] [address] [phone] Director: Ramiro Mark MD Lymphocytes/100 WBC (Bld) 14 % Low 24-43 [facility] Comment on above: Performed By: #### Vanesa Arana, CDP, CHELO, BMP ####[facility] Oxyxgb[address]zgqv1683 [place], [place] [phone] Director: Ramiro Mark MD MCH (RBC) [Entitic mass] 29.3 pg Normal 25.2-33.5 [facility] Comment on above: Performed By: #### Vanesa Arana, CDP, CHELO, BMP ####[facility] Lizfdzmpxaqa7980 [place], [place] [phone] Director: Ramiro Mark MD MCHC (RBC) [Mass/Vol] 32.3 g/dL Normal 28.4-34.8 [facility] Comment on above: Performed By: #### Vanesa Arana, CDP, CHELO, BMP ####[address] [phone] Director: Ramiro Mark MD MCV (RBC) [Entitic vol] 90.6 fL Normal 82.6-102.9 [facility] Comment on above: Performed By: #### M Sumit, CDP, CHLEO, BMP ####[address] [phone] Director: Ramiro Mark MD Monocytes (Bld) [#/Vol] 0.70 10*3/uL Normal 0.10-1.20 [facility] Comment on above: Performed By: #### Vanesa Arana, CDP, CHELO, BMP ####[place], [place] [phone] Director: Ramiro Mark MD Monocytes/100 WBC (Bld) 8 % Normal 3-12 [facility] Comment on above: Performed By: #### Vanesa Arana, CDP, CHELO, BMP ####[address] [phone] Director: Ramiro Mark MD Neutrophil (Seg) 77 % High 36-65 [facility] Comment on above: Performed By: #### Vanesa Arana, CDP, CHELO, BMP ####[facility] [address]fib[address] [place], [place] [phone] Director: Ramiro Mark MD NRBC Automated 0.0 per 100 WBC Normal 0.0 [facility] Comment on above: Performed By: #### Vanesa Arana, CDP, CHELO, BMP ####[facility] [address] [place], [place] [phone] Director: Ramiro Mark MD Platelet mean volume (Bld) [Entitic vol] 10.7 fL Normal 8.1-13.5 [facility] Comment on above: Performed By: #### M G, CDP, CHELO, BMP ####[facility] [address] [place], [place] [phone] Director: Ramiro Mark MD Platelets (Bld) [#/Vol] 162 10*3/uL Normal 138-453 [facility] Comment on above: Performed By: #### M G, CDP, CHELO, BMP ####[facility] [address] [place], [place] [phone] Director: Ramiro Mark MD RBC (Bld) [#/Vol] 3.52 10*6/uL Low 4.21-5.77 [facility] Comment on above: Performed By: #### M G, CDP, CHELO, BMP ####[facility] [address]usf79[address] [place], [place] [phone] Director: Ramiro Mark MD WBC (Bld) [#/Vol] 9.2 10*3/uL Normal 3.5-11.3 [facility] Comment on above: Performed By: #### M G, CDP, CHELO, BMP ####[facility] [address] [place], [place] [phone] Director: Ramiro Mark MD Cardiac echo study Procedure Ordered By: Christopher Cochran on 01-21-2024 Ao Root Index 1.57 cm/m2 [email or web address] Phone: Aortic Root 3.3 cm [email or web address] Phone: AV Area by Peak Velocity 2.4 cm2 [email or web address] Phone: AV Area by VTI 2.4 cm2 [employer] Phone: AV Mean Gradient 4 mmHg [employer] Phone: AV Mean Velocity 0.9 m/s [employer] Phone: AV Peak Gradient 7 mmHg SHARON WILDER [email or web address] Work Phone: AV Peak Velocity 1.4 m/s SHARON JOHNSON [employer] Work Phone: AV Velocity Ratio 0.71 SHARON JOSEPH [email or web address] Work Phone: AV VTI 27.9 cm SHARON GALLEGO [employer] Work Phone: EZIO/BSA Peak Velocity 1.1 cm2/m2 [employer] Work Phone: EZIO/BSA VTI 1.1 cm2/m2 SHARON [employer] Work Phone: Body surface area Derived from formula 2.13 m2 [employer] Work Phone: E/E' Lateral 12.17 [employer] Work Phone: [phone] E/E' Ratio (Averaged) 10.65 [employer]ON [employer] Work Phone: Est. RA Pressure 8 mmHg SHARON WILDER [employer] Work Phone: Fractional Shortening 2D 20 % 28 - 44 % [employer] Work Phone: Interpretation and review of laboratory results Abnormal [employer] Work Phone: IVSd 1.5 cm Abnormal 0.6 - 1.0 cm [employer] Work Phone: LA Area 2C 13.9 cm2 [employer] Work Phone: LA Area 4C 16.0 cm2 [employer] Work Phone: LA Diameter 3.5 cm [employer] Work Phone: LA Major [place] 4.6 cm [employer] Work Phone: LA Minor [place] 4.3 cm [employer] Work Phone: LA Size Index 1.67 cm/m2 [employer] Work Phone: LA Volume BP 41 mL 18 - 58 mL [employer] Work Phone: LA Volume Index BP 20 ml/m2 16 - 34 ml/m2 [employer] Work Phone: LA Volume Index MOD A2C 19 ml/m2 16 - 34 ml/m2 [employer] Work Phone: LA Volume Index MOD A4C 20 ml/m2 16 - 34 ml/m2 [employer] Work Phone: LA Volume MOD A2C 39 mL 18 - 58 mL [employer] Work Phone: LA Volume MOD A4C 42 mL 18 - 58 mL [employer] Work Phone: LA/AO Root Ratio 1.06 [employer] Work Phone: LV E' Lateral Velocity 6 cm/s TRIP [employer] Work Phone: LV E' Septal Velocity 8 cm/s [employer] Work Phone: LV EDV A2C 73 mL [employer] Work Phone: LV EDV A4C 83 mL [employer] Work Phone: LV EDV Index A2C 35 mL/m2 [employer] Work Phone: LV EDV Index A4C 40 mL/m2 [employer] Work Phone: LV Ejection Fraction A2C 58 % [employer] Work Phone: LV Ejection Fraction A4C 51 % [employer] Work Phone: LV ESV A2C 31 mL [employer] Work Phone: LV ESV A4C 40 mL [employer] Work Phone: LV ESV Index A2C 15 mL/m2 [employer] Work Phone: LV ESV Index A4C 19 mL/m2 [employer] Work Phone: LV Mass 2D 220.7 g 88 - 224 g [employer] Work Phone: LV Mass 2D Index 105.1 g/m2 49 - 115 g/m2 [employer] Work Phone: LV RWT Ratio 0.70 [employer] Work Phone: LVIDd 4.0 cm Abnormal 4.2 - 5.9 cm [employer] Work Phone: LVIDd Index 1.90 cm/m2 [employer] Work Phone: LVIDs 3.2 cm [employer] Work Phone: LVIDs Index 1.52 cm/m2 [employer] Work Phone: LVOT Area 3.5 cm2 [employer] Work Phone: LVOT Diameter 2.1 cm [employer] Work Phone: LVOT Mean Gradient 2 mmHg [employer] SE COURS [employer] Work Phone: LVOT Peak Gradient 4 mmHg [employer] Work Phone: LVOT Peak Velocity 1.0 m/s [employer] Work Phone: LVOT Stroke Volume Index 32.5 mL/m2 [employer] Work Phone: LVOT SV 68.2 ml [employer] Work Phone: LVOT VTI 19.7 cm [employer] Work Phone: LVOT:AV VTI Index 0.71 BON SEC JAKE [employer] Work Phone: [phone] LVPWd 1.4 cm Abnormal 0.6 - 1.0 cm SH[employer]ON [employer]AL[employer] Work Phone: MV A Velocity 0.69 m/s SHARON GALLEGO [email or web address] Work Phone: MV Area by VTI 3.0 cm2 SHARON New [email or web address] Work Phone: MV E Velocity 0.73 m/s SHAORN GALLEGO [employer] Work Phone: [phone] MV E Wave Deceleration Time 155.0 ms [employer] Work Phone: MV E/A 1.06 [employer] Work Phone: MV Max Velocity 0.9 m/s SHARON VENTURAOU RS [employer] Work Phone: MV Mean Gradient 2 mmHg [employer] Work Phone: MV Mean Velocity 0.6 m/s [employer] Work Phone: MV Peak Gradient 3 mmHg [employer]ON [employer] Work Phone: [phone] MV VTI 22.7 cm SH[employer]ON GAL[employer] Work Phone: MV:LVOT VTI Index 1.15 [employer]ON SEC OURS [employer] Work Phone: PV Max Velocity 0.9 m/s SHARON SECOU RS [employer] Work Phone: [phone] PV Peak Gradient 3 mmHg [employer] Work Phone: [phone] RV Basal Dimension 3.8 cm BON SE PÉREZ [employer] Work Phone: RV Free Wall Peak S' 17 cm/s SH[employer]ON GALLE[employer] Work Phone: RVSP 40 mmHg [employer] Work Phone: TAPSE 3.1 cm 1.7 cm [employer] Work Phone: TR Max Velocity 2.82 m/s SHARON [employer] Work Phone: TR Peak Gradient 32 mmHg SHARON VENTURAO URS [employer] Work Phone: [employer] Work Phone: Cardiac echo study Procedure on 01-21-2024 [facility] observation (narrative) [employer] Glucose,Whole Bloodon 2023 Glucose [Mass/Vol] 195 mg/dL High 75-110 [facility] Glucose [Mass/Vol] 237 mg/dL High -110 [facility] Glucose [Mass/Vol] 205 mg/dL High [facility]110 [facility] Glucose [Mass/Vol] 237 mg/dL High -110 [facility] Glucose [Mass/Vol] 248 mg/dL High -110 [facility] Lyme Disease AB, CSFon 01-20 B. burgdorferi Ab IA Qn (CSF) 0.08 NINF [facility] [place] [employer] [facility]ON [facility] Lyme Disease Ab,CSFon 2023 B burgdorferi Ab,CSF 0.08 IV Normal <=0.90 [facility] Comment on above: Result Comment: (NOT [...] was developed and its performance characteristicsdetermined by [facility]. It has not been cleared orapproved by the [place] Food and Drug Administration. This test wasperformed in a CLIA certified laboratory and is intended forclinical purposes.Performed By: [facility] [place] [address] [id number] Director: Rogelio Miranda MD, PhDCLIA Number: [id number] Performed By: #### C TP, CGLU, MEVP, CFVD, CFCNT ####[id number] [place], [place] [id number] Lab Director: Ramiro Mark MD#### AWNCSF, ALYMCT ####[address] [address] lab Director: Wil Swanson MD Magnesiumon 01-21-2024 Magnesium [Mass/Vol] 1.9 mg/dL 1.6 - 2 .6 mg/dL [facility] Magnesium [Mass/Vol] 1.9 mg/dL Normal 1.6-2.6 [facility] Comment on above: Performed By: #### M G, CDP, CHELO, BMP ####[facility] [address] [place] [address] [phone] lab Director: Ramiro Mark MD No Panel Informationon 01-20 [facility] Glucose Fingerstickon Glucose [Mass/Vol] 195 mg/dL High 75 - 110 mg/dL [facility] Interpretation and review of laboratory results Abnormal [facility] [employer] Glucose [Mass/Vol] 237 mg/dL High 75 - 110 mg/dL [facility] Interpretation and review of laboratory results Abnormal [facility] Glucose [Mass/Vol] 205 mg/dL High 75 - 110 mg/dL [facility] Interpretation and review of laboratory results Abnormal [facility] [employer] Glucose [Mass/Vol] 237 mg/dL High 75 - 110 mg/dL [facility] Interpretation and review of laboratory results Abnormal [facility] Glucose [Mass/Vol] 248 mg/dL High 75 - 110 mg/dL [facility] Interpretation and review of laboratory results Abnormal [facility] Phosphoruson 01-21-2024 Phosphate [Mass/Vol] 3.9 mg/dL 2.5 - 4 .5 mg/dL [facility] Phosphorus, Inorg.on 024 Phosphorus, Inorg. 3.9 mg/dL Normal 2.5-4.5 [facility] Comment on above: Performed By: #### M G, CDP, CHELO, BMP ####[facility] [address] [place] [address] [facility] Director: Ramiro Mark MD Arterial Bld Gas,POCon 01-19 Jody Test Positive Normal [facility] FIO2 30.0 Normal [facility] HCO3 (Bld) [Moles/Vol] 22.4 mmol/L Normal 21.0-28.0 [facility] Negative Base Excess (calc) 1.3 mmol/L Normal 0.0-2.0 [facility] O2 Device Adult Ventilator Normal [facility] Oxygen saturation in Blood 99.2 % High 94.0-98.0 [facility] pCO2, Arterial 32.5 mm Hg Low 35.0-48.0 [facility] pH, Arterial 7.446 Normal 7.350-7.450 [facility] pO2, Arterial 135.0 mm Hg High 83.0-108.0 [facility] Site Drawn Right Radial Artery Normal [facility] Arterial Blood Gas, POCon Jody Test Positive [facility] FIO2 30.0 [facility] HCO3 (Bld) [Moles/Vol] 22.4 mmol/L 21.0 - 28.0 mmol/L [facility] Negative Base Excess, Art 1.3 mmol/L 0.0 - 2.0 mmol/L [facility] O2 Delivery Device Adult Ventilator [facility] Oxygen saturation in Blood 99.2 % High 94.0 - 98.0 % [facility] POC pCO2 32.5 Low [facility] POC pH 7.446 7.350 - 7.450 [facility] POC PO2 135.0 High [facility] Sample Site Right Radial Artery [facility] Basic Metabolic Panelon Anion gap [Moles/Vol] 12 mmol/L 9 - 16 mmol/L [facility] Calcium [Mass/Vol] 8.0 mg/dL Low 8.6 - 10. 4 mg/dL [facility] Chloride [Moles/Vol] 107 mmol/L 98 - 10 7 mmol/L [facility] CO2 [Moles/Vol] 16 mmol/L Low 20 - 31 mmol/L [facility] Creatinine [Mass/Vol] 1.5 mg/dL High 0.70 - 1.20 mg/dL [facility] GFR/1.73 sq M.predicted MDRD (S/P/Bld) [Vol rate/Area] 55 mL/min/{1.73_m2} Low - PINF [facility] Glucose [Mass/Vol] 211 mg/dL High 74 - 99 mg/dL [facility] Potassium [Moles/Vol] 4.0 mmol/L 3.7 - 5.3 mmol/L [facility] Sodium [Moles/Vol] 135 mmol/L Low 136 - 145 mmol/L [facility] Urea nitrogen [Mass/Vol] 32 mg/dL High 6 - 20 mg/dL [facility] Anion gap [Moles/Vol] 13 mmol/L 9 - 16 mmol/L [facility] Calcium [Mass/Vol] 8.3 mg/dL Low 8.6 - 10. 4 mg/dL [facility] Chloride [Moles/Vol] 106 mmol/L 98 - 10 7 mmol/L [facility] CO2 [Moles/Vol] 18 mmol/L Low 20 - 31 mmol/L [facility] Creatinine [Mass/Vol] 1.6 mg/dL High 0.70 - 1.20 mg/dL [facility] GFR/1.73 sq M.predicted MDRD (S/P/Bld) [Vol rate/Area] 51 mL/min/{1.73_m2} Low - PINF [facility] Glucose [Mass/Vol] 244 mg/dL High 74 - 99 mg/dL [facility] Potassium [Moles/Vol] 4.4 mmol/L 3.7 - 5.3 mmol/L [facility] Sodium [Moles/Vol] 137 mmol/L 136 - 145 mmol/L [facility] Urea nitrogen [Mass/Vol] 33 mg/dL High 6 - 20 mg/dL [facility] Anion gap [Moles/Vol] 10 mmol/L 9 - 16 mmol/L [facility] Calcium [Mass/Vol] 7.6 mg/dL Low 8.6 - 10. 4 mg/dL [facility] Chloride [Moles/Vol] 106 mmol/L 98 - 10 7 mmol/L [facility] CO2 [Moles/Vol] 20 mmol/L 20 - 31 mmol/L [facility] Creatinine [Mass/Vol] 1.6 mg/dL High 0.70 - 1.20 mg/dL [facility] GFR/1.73 sq M.predicted MDRD (S/P/Bld) [Vol rate/Area] 51 mL/min/{1.73_m2} Low - PINF [facility] Glucose [Mass/Vol] 186 mg/dL High 74 - 99 mg/dL [facility] Interpretation and review of laboratory results Abnormal [facility] Potassium [Moles/Vol] 4.0 mmol/L 3.7 - 5.3 mmol/L [facility] Sodium [Moles/Vol] 136 mmol/L 136 - 145 mmol/L [facility] Urea nitrogen [Mass/Vol] 39 mg/dL High 6 - 20 mg/dL [facility] Anion gap [Moles/Vol] 9 mmol/L 9 - 16 mmol/L [facility] Calcium [Mass/Vol] 7.9 mg/dL Low 8.6 - 10. 4 mg/dL [facility] Chloride [Moles/Vol] 105 mmol/L 98 - 10 7 mmol/L [facility] CO2 [Moles/Vol] 21 mmol/L 20 - 31 mmol/L [facility] Creatinine [Mass/Vol] 1.6 mg/dL High 0.70 - 1.20 mg/dL [facility] GFR/1.73 sq M.predicted MDRD (S/P/Bld) [Vol rate/Area] 51 mL/min/{1.73_m2} Low - PINF [facility] Glucose [Mass/Vol] 180 mg/dL High 74 - 99 mg/dL [facility] Interpretation and review of laboratory results Abnormal [facility] Potassium [Moles/Vol] 4.3 mmol/L 3.7 - 5.3 mmol/L [facility] Sodium [Moles/Vol] 135 mmol/L Low 136 - 145 mmol/L [facility] Urea nitrogen [Mass/Vol] 41 mg/dL High 6 - 20 mg/dL [facility] Anion gap [Moles/Vol] 10 mmol/L 9 - 16 mmol/L [facility] Calcium [Mass/Vol] 8.1 mg/dL Low 8.6 - 10. 4 mg/dL [facility] Chloride [Moles/Vol] 106 mmol/L 98 - 10 7 mmol/L [facility] CO2 [Moles/Vol] 21 mmol/L 20 - 31 mmol/L [facility] Creatinine [Mass/Vol] 1.6 mg/dL High 0.70 - 1.20 mg/dL [facility] GFR/1.73 sq M.predicted MDRD (S/P/Bld) [Vol rate/Area] 51 mL/min/{1.73_m2} Low - PINF [facility] Glucose [Mass/Vol] 135 mg/dL High 74 - 99 mg/dL [facility] Interpretation and review of laboratory results Abnormal [facility] Potassium [Moles/Vol] 4.0 mmol/L 3.7 - 5.3 mmol/L [facility] Sodium [Moles/Vol] 137 mmol/L 136 - 145 mmol/L [facility] Urea nitrogen [Mass/Vol] 40 mg/dL High 6 - 20 mg/dL [facility] Basic Metabolic Profon 01-19 Anion gap [Moles/Vol] 12 mmol/L Normal 9-16 [facility] Comment on above: Performed By: #### B MP, MG, CHELO ####[facility] [address] [place], [place] [address])[phone] Director: Ramiro Mark MD Calcium [Mass/Vol] 8.0 mg/dL Low 8.6-10.4 [facility] Comment on above: Performed By: #### B MP, MG, CHELO ####[facility] [address] [place], [place] [address])[phone] Director: Ramiro Mark MD Chloride [Moles/Vol] 107 mmol/L Normal 98-107 [facility] Comment on above: Performed By: #### B MP, MG, CHELO ####[facility] [address] [place] [address] Lab Director: Ramiro Mark MD CO2 [Moles/Vol] 16 mmol/L Low 20-31 [facility] Comment on above: Performed By: #### B MP, MG, CHELO ####[facility] [address] [place] [address] Lab Director: Ramiro Mark MD Creatinine [Mass/Vol] 1.5 mg/dL High 0.70-1.20 [facility] Comment on above: Performed By: #### B MP, MG, CHELO ####[facility] [address] [place] [address] Lab Director: Ramiro Mark MD GFR/1.73 sq M.predicted among non-blacks MDRD (S/P/Bld) [Vol rate/Area] 55 mL/min/{1.73_m2} Low >60 [facility] Comment on above: Result Comment: Thes [...] By: #### B MP, MG, CHELO ####[facility] [address] [place], [place] [address])[phone] Director: Ramiro Mark MD Glucose [Mass/Vol] 211 mg/dL High 74-99 [facility] Comment on above: Performed By: #### B MP, MG, CHELO ####[facility] [address] [place], [place] [address])[phone] Director: Ramiro Mark MD Potassium [Moles/Vol] 4.0 mmol/L Normal 3.7-5.3 [facility] Comment on above: Performed By: #### B MP, MG, CHELO ####[facility] [address] [place] [address])[phone] Director: Ramiro Mark MD Sodium [Moles/Vol] 135 mmol/L Low 136-145 [facility] Comment on above: Performed By: #### B MP, MG, CHELO ####[facility] [address] [place], [place] [address])[phone] Director: Ramiro Mark MD Urea nitrogen [Mass/Vol] 32 mg/dL High 6-20 [facility] Comment on above: Performed By: #### B MP, MG, CHELO ####[facility] [address] [place], [place] [address])[phone] Director: Ramiro Mark MD Anion gap [Moles/Vol] 13 mmol/L Normal 9-16 [facility] Comment on above: Performed By: #### P HO, BMP, MG ####[facility] [address]127 [place] [address] Lab Director: Ramiro Mark MD Calcium [Mass/Vol] 8.3 mg/dL Low 8.6-10.4 [facility] Comment on above: Performed By: #### P HO, BMP, MG ####[facility] [address] [place], [place] [phone] Director: Ramiro Mark MD Chloride [Moles/Vol] 106 mmol/L Normal 98-107 [facility] Comment on above: Performed By: #### P HO, BMP, MG ####[facility] [address] [place], [place] [address])[phone] Director: Ramiro Mark MD CO2 [Moles/Vol] 18 mmol/L Low 20-31 [facility] Comment on above: Performed By: #### P HO, BMP, MG ####[facility] [address] [place] [address] [phone] Director: Ramiro Mark MD Creatinine [Mass/Vol] 1.6 mg/dL High 0.70-1.20 [facility] Comment on above: Performed By: #### P HO, BMP, MG ####[facility] [address] [place] [address] [phone] Director: Ramiro Mark MD GFR/1.73 sq M.predicted among non-blacks MDRD (S/P/Bld) [Vol rate/Area] 51 mL/min/{1.73_m2} Low >60 [facility] Comment on above: Result Comment: Thes [...] By: #### P HO, BMP, MG ####[facility] [address] [place] [address] Lab Director: Ramiro Mark MD Glucose [Mass/Vol] 244 mg/dL High 74-99 [facility] Comment on above: Performed By: #### P HO, BMP, MG ####[facility] [address] [place] [address] Lab Director: Ramiro Mark MD Potassium [Moles/Vol] 4.4 mmol/L Normal 3.7-5.3 [facility] Comment on above: Performed By: #### P HO, BMP, MG ####[facility] [address] [place], [place] [phone] Director: Ramiro Mark MD Sodium [Moles/Vol] 137 mmol/L Normal 136-145 [facility] Comment on above: Performed By: #### P HO, BMP, MG ####[facility] [address] [place], [place] [phone] Director: Ramiro Makr MD Urea nitrogen [Mass/Vol] 33 mg/dL High 6-20 [facility] Comment on above: Performed By: #### P HO, BMP, MG ####[facility] [address] [place], [place] [phone] Director: Ramiro Mark MD Anion gap [Moles/Vol] 10 mmol/L Normal 9-16 [facility] Comment on above: Performed By: #### B MP, MG, CHELO, LACTIC ####[facility] [address] [place] [address] Lab Director: Ramiro Mark MD Calcium [Mass/Vol] 7.6 mg/dL Low 8.6-10.4 [facility] Comment on above: Performed By: #### B MP, MG, CHELO, LACTIC ####[facility] [address] [place], [place] [phone] Director: Ramiro Mark MD Chloride [Moles/Vol] 106 mmol/L Normal 98-107 [facility] Comment on above: Performed By: #### B MP, MG, CHELO, LACTIC ####[facility] [address] [place] [address] Lab Director: Ramiro Mark MD CO2 [Moles/Vol] 20 mmol/L Normal 20-31 [facility] Comment on above: Performed By: #### B MP, MG, CHELO, LACTIC ####[facility] [address] [place], [place] [phone] Director: Ramiro Mark MD Creatinine [Mass/Vol] 1.6 mg/dL High 0.70-1.20 [facility] Comment on above: Performed By: #### B MP, MG, CHELO, LACTIC ####[address] [phone] Director: Ramiro Mark MD GFR/1.73 sq M.predicted among non-blacks MDRD (S/P/Bld) [Vol rate/Area] 51 mL/min/{1.73_m2} Low >60 [facility] Comment on above: Result Comment: Thes [...] #### B MP, MG, CHELO, LACTIC ####[facility] [address] [place], [place] [phone] Director: Ramiro Mark MD Glucose [Mass/Vol] 186 mg/dL High 74-99 [facility] Comment on above: Performed By: #### B MP, MG, CHELO, LACTIC ####[facility] Wluwzituqpnm[address] [place], [place] [address])[phone] Director: Ramiro Mark MD Potassium [Moles/Vol] 4.0 mmol/L Normal 3.7-5.3 [facility] Comment on above: Performed By: #### B MP, MG, CHELO, LACTIC ####[facility] Yhiieesgmaxi6432 [place] [address] Lab Director: Ramiro Mark MD Sodium [Moles/Vol] 136 mmol/L Normal 136-145 [facility] Comment on above: Performed By: #### B MP, MG, CHELO, LACTIC ####[facility] [address]techtkgdpib3734 [place], [place] [address])[phone] Director: Ramiro Mark MD Urea nitrogen [Mass/Vol] 39 mg/dL High 6-20 [facility] Comment on above: Performed By: #### B MP, MG, CHELO, LACTIC ####[facility] Sz[address]efoyor8516 [place], [place] [address])[phone] Director: Ramiro Mark MD Anion gap [Moles/Vol] 9 mmol/L Normal 9-16 [facility] Comment on above: Performed By: #### M G, CDP, VNCR, CHELO, BMP, TRIG ####[facility] Xacqpnnadycn6295 [place], [place] [address])[phone] Director: Ramiro Mark MD Calcium [Mass/Vol] 7.9 mg/dL Low 8.6-10.4 [facility] Comment on above: Performed By: #### M G, CDP, VNCR, CHELO, BMP, TRIG ####[facility] Ynhzlkpfxgac9347 [place], [place] [address])[phone] Director: Ramiro Mark MD Chloride [Moles/Vol] 105 mmol/L Normal 98-107 [facility] Comment on above: Performed By: #### M G, CDP, VNCR, CHELO, BMP, TRIG ####[facility] Bqmtnlexemyh7678 [place] [address] Lab Director: Ramiro Mark MD CO2 [Moles/Vol] 21 mmol/L Normal 20-31 [facility] Comment on above: Performed By: #### M G, CDP, VNCR, CHELO, BMP, TRIG ####[facility] [address]cmprk3683 [place] [address] Lab Director: Ramiro Mark MD Creatinine [Mass/Vol] 1.6 mg/dL High 0.70-1.20 [facility] Comment on above: Performed By: #### M G, CDP, VNCR, CHELO, BMP, TRIG ####[address] [address])[phone] Director: Ramiro Mark MD GFR/1.73 sq M.predicted among non-blacks MDRD (S/P/Bld) [Vol rate/Area] 51 mL/min/{1.73_m2} Low >60 [facility] Comment on above: Result Comment: Thes [...] G, CDP, VNCR, CHELO, BMP, TRIG ####[facility] Bvshmlfdhlxq30[address] [place], [place] [address])[phone] Director: Ramiro Mark MD Glucose [Mass/Vol] 180 mg/dL High 74-99 [facility] Comment on above: Performed By: #### M G, CDP, VNCR, CHELO, BMP, TRIG ####[facility] Tzjllsspyknr4[address] [place], [place] [phone] Director: Ramiro Mark MD Potassium [Moles/Vol] 4.3 mmol/L Normal 3.7-5.3 [facility] Comment on above: Performed By: #### M G, CDP, VNCR, HCELO, BMP, TRIG ####[facility] Fmfjciolwzim67[address] [place], [place] [address])[phone] Director: Ramiro Mark MD Sodium [Moles/Vol] 135 mmol/L Low 136-145 [facility] Comment on above: Performed By: #### M G, CDP, VNCR, CHELO, BMP, TRIG ####[facility] [address]ujktbnl[address]39[address] [place], [place] [address])[phone] Director: Ramiro Mark MD Urea nitrogen [Mass/Vol] 41 mg/dL High 6-20 [facility] Comment on above: Performed By: #### M G, CDP, VNCR, CHELO, BMP, TRIG ####[facility] Miactprpsqvs2220 [place], [place] [address])[phone] Director: Ramiro Mark MD Anion gap [Moles/Vol] 10 mmol/L Normal 9-16 [facility] Comment on above: Performed By: #### B MP, MG, LACTIC, CHELO ####[facility] Vfnisysyvuuk3318 [place], [place] [address])[phone] Director: Ramiro Mark MD Calcium [Mass/Vol] 8.1 mg/dL Low 8.6-10.4 [facility] Comment on above: Performed By: #### B MP, MG, LACTIC, CHELO ####[facility] Nq[address]axagiudjs9188 [place] [address] Lab Director: Ramiro Mark MD Chloride [Moles/Vol] 106 mmol/L Normal 98-107 [facility] Comment on above: Performed By: #### B MP, MG, LACTIC, CHELO ####[facility] Yqktwdaucmfq1130 [place], [place] [address])[phone] Director: Ramiro Mark MD CO2 [Moles/Vol] 21 mmol/L Normal 20-31 [facility] [facility] Comment on above: Performed By: #### B MP, MG, LACTIC, CHELO ####[facility] Y[address]odnzioscgc5903 [place] [address] Lab Director: Ramiro Mark MD Creatinine [Mass/Vol] 1.6 mg/dL High 0.70-1.20 [facility] Comment on above: Performed By: #### B MP, MG, LACTIC, CHELO ####[facility] [address] [place] [address] Lab Director: Ramiro Mark MD GFR/1.73 sq M.predicted among non-blacks MDRD (S/P/Bld) [Vol rate/Area] 51 mL/min/{1.73_m2} Low >60 [facility] Comment on above: Result Comment: Thes [...] #### B MP, MG, LACTIC, CHELO ####[facility] Vnlrdsahtckf9716 [place] [address] Lab Director: Ramiro Mark MD Glucose [Mass/Vol] 135 mg/dL High 74-99 [facility] [facility] Comment on above: Performed By: #### B MP, MG, LACTIC, CHELO ####[facility] Kznakxtwityn2204 [place] [address] Lab Director: Ramiro Mark MD Potassium [Moles/Vol] 4.0 mmol/L Normal 3.7-5.3 [facility] Comment on above: Performed By: #### B MP, MG, LACTIC, CHELO ####[facility] [address]wooojd0105 [place] [address] Lab Director: Ramiro Mark MD Sodium [Moles/Vol] 137 mmol/L Normal 136-145 [facility] [facility] Comment on above: Performed By: #### B MP, MG, LACTIC, CHELO ####[employer] Cglnwwznbtis8766 [place], [place] [phone] lab Director: Ramiro Mark MD Urea nitrogen [Mass/Vol] 40 mg/dL High 6-20 [facility] [facility] Comment on above: Performed By: #### B MP, MG, LACTIC, CHELO ####[employer] G[address]agaurq9395 [place], [place] [phone] lab Director: Ramiro Mark MD CBC with Auto Differentialon 01-20-2024 Basophils (Bld) [#/Vol] 0.04 10*3/uL [facility] Erythrocyte distribution width (RBC) [Ratio] 14.2 % 11.8 - 14.4 % [facility] Hematocrit (Bld) [Volume fraction] 30.7 % Low 40.7 - 50.3 % [facility] Hemoglobin (Bld) [Mass/Vol] 10.1 g/dL Low 13.0 - 17.0 g/dL [facility] Immature granulocytes (Bld) [#/Vol] 0.06 10*3/uL [facility] Interpretation and review of laboratory results Abnormal [facility] Lymphocytes/100 WBC (Bld) 1.10 % [facility] MCH (RBC) [Entitic mass] 29.4 pg 25.2 - 33.5 pg [facility] MCHC (RBC) [Mass/Vol] 32.9 g/dL 28.4 - 34.8 g/dL [facility] MCV (RBC) [Entitic vol] 89.2 fL 82.6 - 102.9 fL [facility] Monocytes/100 WBC (Bld) 0.71 % [facility] Neutrophils/100 WBC (Bld) 82 % High 36 - 65 % [facility] Nucleated RBC/100 WBC (Bld) [Ratio] 0.0 % 0.0 per 100 WBC [facility] Platelet mean volume (Bld) [Entitic vol] 10.3 fL 8.1 - 13.5 fL [facility] Platelets (Bld) [#/Vol] 158 10*3/uL [facility] RBC (Bld) [#/Vol] 3.44 10*6/uL Low 4.21 - 5.7 7 m/uL [facility] Segmented neutrophils/100 WBC (Bld) 9.08 % High [facility] WBC other (Bld) [#/Vol] 11.1 [facility] CBC with Diffon 01-20-2024 Basophils/100 WBC (Bld) 0 % Normal 0-2 [facility] Comment on above: Performed By: #### M G, CDP, VNCR, CHELO, BMP, TRIG ####[employer] [address] [place], [place] [address])[phone] Director: Ramiro Mark MD Eosinophils (Bld) [#/Vol] 0.10 10*3/uL Normal 0.00-0.44 [facility] Comment on above: Performed By: #### M G, CDP, VNCR, CHELO, BMP, TRIG ####[employer] [address] [place], [place] [address])[phone] Director: Ramiro Mark MD Eosinophils/100 WBC (Bld) 1 % Normal 1-4 [facility] Comment on above: Performed By: #### M G, CDP, VNCR, CHELO, BMP, TRIG ####[employer] [address] [place], [place] [address])[phone] Director: Ramiro Mark MD Immature granulocytes/100 WBC (Bld) 1 % High 0 [facility] Comment on above: Performed By: #### M G, CDP, VNCR, CHELO, BMP, TRIG ####[employer] [address] [place], [place] [address])[phone] Director: Ramiro Mark MD Lymphocytes/100 WBC (Bld) 10 % Low 24-43 [facility] Comment on above: Performed By: #### M G, CDP, VNCR, CHELO, BMP, TRIG ####[employer] [address])[phone] Director: Ramiro Mark MD Monocytes/100 WBC (Bld) 6 % Normal 3-12 [facility] Comment on above: Performed By: #### M G, CDP, VNCR, CHELO, BMP, TRIG ####[address] [address])[phone] Director: Ramiro Mark MD Abs. Basophil 0.04 k/uL Normal 0.00-0.20 [facility] Comment on above: Performed By: #### M G, CDP, VNCR, CHELO, BMP, TRIG ####[place], [place] [address])[phone] Director: Ramiro Mark MD Abs.Imm.Granulocyte 0.06 k/uL Normal 0.00-0.30 [facility] Comment on above: Performed By: #### M G, CDP, VNCR, CHELO, BMP, TRIG ####[address] [address])[phone] Director: Ramiro Mark MD Abs.Neutrophil (Seg) 9.08 k/uL High 1.50-8.10 [facility] Comment on above: Performed By: #### M G, CDP, VNCR, CHELO, BMP, TRIG ####[place], [place] [address])[phone] Director: Ramiro Mark MD Lymphocytes (Bld) [#/Vol] 1.10 10*3/uL Normal 1.10-3.70 [facility] Comment on above: Performed By: #### M G, CDP, VNCR, CHELO, BMP, TRIG ####[address] [address])[phone] Director: Ramiro Mark MD Monocytes (Bld) [#/Vol] 0.71 10*3/uL Normal 0.10-1.20 [facility] Comment on above: Performed By: #### M G, CDP, VNCR, CHELO, BMP, TRIG ####[facility] [address] [place], [place] [id number])[phone] Director: Ramiro Mark MD Neutrophil (Seg) 82 % High 36-65 [facility] Comment on above: Performed By: #### M G, CDP, VNCR, CHELO, BMP, TRIG ####[facility] [address] [place], [place] [id number])[phone] Director: Ramiro Mark MD Erythrocyte distribution width (RBC) [Ratio] 14.2 % Normal 11.8-14.4 [facility] Comment on above: Performed By: #### M G, CDP, VNCR, CEHLO, BMP, TRIG ####[facility] T[address]qsylcx5372 [place], [place] [id number])[phone] Director: Ramiro Mark MD Hematocrit (Bld) [Volume fraction] 30.7 % Low 40.7-50.3 [facility] Comment on above: Performed By: #### M G, CDP, VNCR, CHELO, BMP, TRIG ####[facility] [address] [place] [address])[phone] Director: Ramiro Mark MD Hemoglobin (Bld) [Mass/Vol] 10.1 g/dL Low 13.0-17.0 [facility] Comment on above: Performed By: #### M G, CDP, VNCR, CHELO, BMP, TRIG ####[facility] Nnfesosklhlv3872 [place], [place] [id number])[phone] Director: Ramiro Mark MD MCH (RBC) [Entitic mass] 29.4 pg Normal 25.2-33.5 [facility] Comment on above: Performed By: #### M G, CDP, VNCR, CHELO, BMP, TRIG ####[facility] [address] [place], [place] [id number])[phone] Director: Ramiro Mark MD MCHC (RBC) [Mass/Vol] 32.9 g/dL Normal 28.4-34.8 [facility] Comment on above: Performed By: #### M G, CDP, VNCR, CHELO, BMP, TRIG ####[address] [address] Lab Director: Ramiro Mark MD MCV (RBC) [Entitic vol] 89.2 fL Normal 82.6-102.9 [facility] Comment on above: Performed By: #### M G, CDP, VNCR, CHELO, BMP, TRIG ####[facility] [address] [place] [address] [id number])[phone] Director: Ramiro Mark MD NRBC Automated 0.0 per 100 WBC Normal 0.0 [facility] Comment on above: Performed By: #### M G, CDP, VNCR, CHELO, BMP, TRIG ####[address] [address])[phone] Director: Ramiro Mark MD Platelet mean volume (Bld) [Entitic vol] 10.3 fL Normal 8.1-13.5 [facility] Comment on above: Performed By: #### M G, CDP, VNCR, CHELO, BMP, TRIG ####[address] [address] Lab Director: Ramiro Mark MD Platelets (Bld) [#/Vol] 158 10*3/uL Normal 138-453 [facility] Comment on above: Performed By: #### M G, CDP, VNCR, CHELO, BMP, TRIG ####[facility] [address] [place] [address] Lab Director: Ramiro Mark MD RBC (Bld) [#/Vol] 3.44 10*6/uL Low 4.21-5.77 [facility] Comment on above: Performed By: #### M G, CDP, VNCR, CHELO, BMP, TRIG ####[place] [place] [address] lab Director: Ramiro Mark MD WBC (Bld) [#/Vol] 11.1 10*3/uL Normal 3.5-11.3 [facility] Comment on above: Performed By: #### M G, CDP, VNCR, CHELO, BMP, TRIG ####[facility] [address] [place] [address] lab Director: Ramiro Mark MD Cult,Urineon 01-20-2024 Cult,Urine Specimen Description .URINE,STRAIGHT CATHETER Culture NO GROWTH Report Status FINAL 01/20/2024 Normal [facility] Comment on above: Performed By: #### U RC ####[facility] [address] [place] [address] lab Director: Ramiro Mark MD Culture, Urineon 01-20-2024 Microorganism identified Cx Nom (Unsp spec) NO GROWTH [facility] [place] [facility] Specimen Description .URINE,STRAIGHT CATHETER [facility] Cytology, Non-Gynon 01-20-20 [facility] Detal [facility] Extubationon 01-20-2024 [facility] [place] [employer] ExtubationOrdered By: Linda Lopez on 01-20-2024 [facility] Glucose (POC)on 01-20-2024 Glucose [Mass/Vol] 185 mg/dL High 74-100 [facility] Glucose,Whole Bloodon 2023 Glucose [Mass/Vol] 206 mg/dL High 75-110 [facility] Glucose [Mass/Vol] 236 mg/dL High 75-110 [facility] Glucose [Mass/Vol] 228 mg/dL High 75-110 [facility] Glucose [Mass/Vol] 147 mg/dL High 75-110 [facility] Glucose [Mass/Vol] 133 mg/dL High 75-110 [facility] Glucose [Mass/Vol] 179 mg/dL High 75-110 [facility] Glucose [Mass/Vol] 205 mg/dL High 75-110 [facility] Glucose [Mass/Vol] 177 mg/dL High 75-110 [facility] Glucose [Mass/Vol] 167 mg/dL High 75-110 [facility] Glucose [Mass/Vol] 187 mg/dL High 75-110 [facility] Glucose [Mass/Vol] 187 mg/dL High 75-110 [facility] Glucose [Mass/Vol] 172 mg/dL High 75-110 [facility] Glucose [Mass/Vol] 156 mg/dL High 75-110 [facility] Glucose [Mass/Vol] 122 mg/dL High 75-110 [facility] Glucose [Mass/Vol] 96 mg/dL Normal -110 [facility] Guidance for puncture of Lum bar spineon 01-20-2024 MHPN RIS CONSOLIDATED PN RIS CONSOLIDATED [facility] Guidance for puncture of Lum bar spineOrdered By: Felix Dai on 01-20-2024 [facility] Work Phone: IR LUMBAR PUNCTURE FOR DIAGN OSISon 01-20-2024 IR LUMBAR PUNCTURE FOR DIAGNOSIS Normal [facility] Lactic Acidon 01-20-2024 Lactic Acid, Whole Blood 1.7 mmol/L 0.7 - 2.1 mmol/L [facility] Lactic Acid,Whole Bl 1.7 mmol/L Normal 0.7-2.1 [facility] Comment on above: Performed By: #### L ACTIC ####[employer] [address] [place] [address] lab Director: Ramiro Mark MD Lactic Acid, Whole Blood 1.3 mmol/L 0.7 - 2.1 mmol/L [facility] Lactic Acid,Whole Bl 1.3 mmol/L Normal 0.7-2.1 [facility] Comment on above: Performed By: #### B MP, MG, CHELO, LACTIC ####[employer] [address] [place], [place] [id number] lab Director: Ramiro Mark MD Lactic Acid, Whole Blood 1.2 mmol/L 0.7 - 2.1 mmol/L [facility] Lactic Acid,Whole Bl 1.2 mmol/L Normal 0.7-2.1 [facility] Comment on above: Performed By: #### B MP, MG, LACTIC, CHELO ####[facility] [address] [place], [place] [id number] lab Director: Ramiro Mark MD Magnesiumon 01-20-2024 Magnesium [Mass/Vol] 1.8 mg/dL 1.6 - 2 .6 mg/dL [facility] Magnesium [Mass/Vol] 1.8 mg/dL Normal 1.6-2.6 [facility] Comment on above: Performed By: #### B MP, MG, CHELO ####[facility] [address] [place] [id number] lab Director: Ramiro Mark MD Magnesium [Mass/Vol] 1.9 mg/dL 1.6 - 2 .6 mg/dL [facility] Magnesium [Mass/Vol] 1.9 mg/dL Normal 1.6-2.6 [facility] Comment on above: Performed By: #### P HO, BMP, MG ####[facility] [address]scdc[address] [place], [place] [phone] lab Director: Ramiro Mark MD Magnesium [Mass/Vol] 1.9 mg/dL 1.6 - 2 .6 mg/dL [facility] Magnesium [Mass/Vol] 1.9 mg/dL Normal 1.6-2.6 [facility] Comment on above: Performed By: #### B MP, MG, CHELO, LACTIC ####[facility] [address] [place], [place] [phone] lab Director: Ramiro Mark MD Magnesium [Mass/Vol] 2.0 mg/dL 1.6 - 2 .6 mg/dL [facility] Magnesium [Mass/Vol] 2.0 mg/dL Normal 1.6-2.6 [facility] Comment on above: Performed By: #### M G, CDP, VNCR, CHELO, BMP, TRIG ####[facility] [address]awtgbk57[address] [place], [place] [phone] lab Director: Ramiro Mark MD Magnesium [Mass/Vol] 2.0 mg/dL 1.6 - 2 .6 mg/dL [facility] Magnesium [Mass/Vol] 2.0 mg/dL Normal 1.6-2.6 [facility] Comment on above: Performed By: #### B MP, MG, LACTIC, CHELO ####[facility] [address] [place] [phone] lab Director: Ramiro Mark MD No Panel Informationon 01-19 Interpretation and review of laboratory results Abnormal [facility] Interpretation and review of laboratory results Abnormal [facility] Interpretation and review of laboratory results Abnormal [facility] Non-Utility Supervisor [employer] Cytologyon 4 Case No: [id number] Normal [facility] Comment on above: Performed By: #### N HARDENING MACHINE OPERATOR HELPER ####[facility] [address] [place] [id number] lab Director: Ramiro Mark MD POC Glucose Fingerstickon Glucose [Mass/Vol] 206 mg/dL High 75 - 110 mg/dL [facility] Interpretation and review of laboratory results Abnormal [facility] Glucose [Mass/Vol] 236 mg/dL High 75 - 110 mg/dL [facility] Interpretation and review of laboratory results Abnormal [facility] Glucose [Mass/Vol] 228 mg/dL High 75 - 110 mg/dL [facility] Interpretation and review of laboratory results Abnormal [facility] Glucose [Mass/Vol] 147 mg/dL High 75 - 110 mg/dL [facility] [place] [facility] Interpretation and review of laboratory results Abnormal [facility] Glucose [Mass/Vol] 133 mg/dL High 75 - 110 mg/dL [facility] Interpretation and review of laboratory results Abnormal [facility] Glucose [Mass/Vol] 179 mg/dL High 75 - 110 mg/dL [facility] Interpretation and review of laboratory results Abnormal [facility] Glucose [Mass/Vol] 205 mg/dL High 75 - 110 mg/dL [facility] Interpretation and review of laboratory results Abnormal [facility] Glucose [Mass/Vol] 177 mg/dL High 75 - 110 mg/dL [facility] Interpretation and review of laboratory results Abnormal [facility] Glucose [Mass/Vol] 167 mg/dL High 75 - 110 mg/dL [facility] Interpretation and review of laboratory results Abnormal [facility] Glucose [Mass/Vol] 187 mg/dL High 75 - 110 mg/dL [facility] Interpretation and review of laboratory results Abnormal [facility] Glucose [Mass/Vol] 187 mg/dL High 75 - 110 mg/dL [facility] Interpretation and review of laboratory results Abnormal [facility] Glucose [Mass/Vol] 172 mg/dL High 75 - 110 mg/dL [facility] Interpretation and review of laboratory results Abnormal [facility] Glucose [Mass/Vol] 156 mg/dL High 75 - 110 mg/dL [facility] Interpretation and review of laboratory results Abnormal [facility] Glucose [Mass/Vol] 122 mg/dL High 75 - 110 mg/dL [facility] Interpretation and review of laboratory results Abnormal [facility] Glucose [Mass/Vol] 96 mg/dL 75 - 110 mg/dL [facility] POCT Glucoseon 01-20-2024 Glucose [Mass/Vol] 185 mg/dL High 74 - 100 mg/dL [facility] Phosphoruson 01-20-2024 Phosphate [Mass/Vol] 1.9 mg/dL Low 2.5 - 4 .5 mg/dL [facility] Phosphate [Mass/Vol] 2.4 mg/dL Low 2.5 - 4 .5 mg/dL [facility] Phosphate [Mass/Vol] 3.3 mg/dL 2.5 - 4 .5 mg/dL [facility] Phosphate [Mass/Vol] 3.9 mg/dL 2.5 - 4 .5 mg/dL [facility] Phosphate [Mass/Vol] 3.9 mg/dL 2.5 - 4 .5 mg/dL [facility] Phosphorus, Inorg.on 024 Phosphorus, Inorg. 1.9 mg/dL Low 2.5-4.5 [facility] Comment on above: Performed By: #### B MP, MG, CHELO ####[facility] [address] [place] [address] Lab Director: Ramiro Mark MD Phosphorus, Inorg. 2.4 mg/dL Low 2.5-4.5 [facility] Comment on above: Performed By: #### P HO, BMP, MG ####[facility] [address]wsv[address]752 [place] [address] Lab Director: Ramiro Mark MD Phosphorus, Inorg. 3.3 mg/dL Normal 2.5-4.5 [facility] Comment on above: Performed By: #### B MP, MG, CHELO, LACTIC ####[facility] [address]libto25[address] [place] [address] Lab Director: Ramiro Mark MD Phosphorus, Inorg. 3.9 mg/dL Normal 2.5-4.5 [facility] Comment on above: Performed By: #### M G, CDP, VNCR, CHELO, BMP, TRIG ####[facility] [id number] [place] [address] Lab Director: Ramiro Mark MD Phosphorus, Inorg. 3.9 mg/dL Normal 2.5-4.5 [facility] Comment on above: Performed By: #### B MP, MG, LACTIC, CHELO ####[facility] [id number] [place] [address] Lab Director: Ramiro Mark MD SURGICAL PATHOLOGY REPORTon 01-20-2024 Surgical Pathology Report [facility] Triglycerideon 01-20-2024 Triglyceride [Mass/Vol] 62 mg/dL NINF - 150 mg/dL [facility] Triglycerideson 01-20-2024 Triglyceride [Mass/Vol] 62 mg/dL Normal <150 [facility] Comment on above: Result Comment: Trig lyceride Guidelines: <150 Desirable 150- 199 Borderline 200-499 High >499 Very high Based on AHA Guidelines for fasting triglyceride, July 2012. Performed By: #### M G, CDP, VNCR, CHELO, BMP, TRIG ####[facility] [address] [place] [address] Lab Director: Ramiro Mark MD VDRL CSFon 01-20-2024 Reagin Ab VDRL Ql (CSF) Non-Reactive NONREACTIVE [facility] VDRL, Qual, CSFon 01-20-2024 VDRL, Qual, CSF Non-Reactive Normal NR [facility] Comment on above: Performed By: #### C TP, CGLU, MEVP, CFVD, CFCNT ####[facility] [address] [place] [address] Lab Director: Ramiro Mark MD#### AWSEBASSF, ALYMCT ####[facility] [address] [place] [address] Lab Director: Wil Swanson MD Vancomycin Level, Randomon 0 01-20-2024 Vancomycin [Mass/Vol] 18.9 ug/mL 5.0 - 40.0 ug/mL [facility] Vancomycin,Randomon 01-20-20 Vancomycin 18.9 ug/mL Normal 5.0-40.0 [facility] Comment on above: Result Comment: High er trough serum vancomycin concentrations of 15-20 ug/mL are recommended for complicated infections such as bacteremia, endocarditis, osteomyelitis, meningitis, and hospital acquired pneumonia. Performed By: #### M G, CDP, VNCR, CHELO, BMP, TRIG ####[facility] [address] [place] [address] [phone] Lab Director: Ramiro Mark MD APTTon 01-19-2024 aPTT Coag (Bld) [Time] 23.4 s TRIP [facility] aPTT Coag (Bld) [Time] 23.4 s Normal 23.0-36.5 [facility] Comment on above: Result Comment: IV H eparin Therapy Range:66.0-92.0 sec Performed By: #### P TT, CHELO, PRCAL, MG, BMP, PT ####[facility] [address] [place] [address] [phone] Lab Director: Ramiro Mark MD Ammoniaon 01-19-2024 Ammonia (P) [Moles/Vol] 32 umol/L 16 - 60 umol/L [facility] Ammonia (P) [Moles/Vol] 32 umol/L Normal 16-60 [facility] Comment on above: Result Comment: Spec imen lipemia has exceeded the interference as defined by Jaime. Results may be affected. Performed By: #### T SHX, JHON ####[facility] [address] [place] [address] [phone] Lab Director: Ramiro Mark MD Arterial Bld Gas,POCon 01-18 Jody Test Positive Normal [facility] FIO2 30.0 Normal [facility] HCO3 (Bld) [Moles/Vol] 23.9 mmol/L Normal 21.0-28.[address] [facility] Mode of Delivery PRVC Normal [facility] Negative Base Excess (calc) 0.9 mmol/L Normal 0.0-2.0 [facility] Oxygen saturation in Blood 98.8 % High 94.0-98.0 [facility] pCO2, Arterial 38.9 mm Hg Normal 35.0-48.0 [facility] pH, Arterial 7.395 Normal 7.350-7.450 [facility] pO2, Arterial 124.3 mm Hg High 83.0-108.0 [facility] Site Drawn Right Radial Artery Normal [facility] Jody Test Positive Normal [facility] FIO2 28.0 Normal [facility] HCO3 (Bld) [Moles/Vol] 24.1 mmol/L Normal 21.0-28.[address] [facility] O2 Device Cannula Normal [facility] Oxygen saturation in Blood 95.5 % Normal 94.0-98.0 [facility] pCO2, Arterial 35.5 mm Hg Normal 35.0-48.0 [facility] pH, Arterial 7.439 Normal 7.350-7.450 [facility] pO2, Arterial 74.9 mm Hg Low 83.0-108.0 [facility] Positive Base Excess (calc) 0.2 mmol/L Normal 0.0-3.0 [facility] Site Drawn Right Radial Artery Normal [facility] Arterial Blood Gas, POCon Jody Test Positive [facility] [employer] FIO2 30.0 [facility] [employer] HCO3 (Bld) [Moles/Vol] 23.9 mmol/L 21.0 - 28.0 mmol/L [facility] [employer] Mode PRVC [facility] [employer] Negative Base Excess, Art 0.9 mmol/L 0.0 - 2.0 mmol/L [facility] [employer] Oxygen saturation in Blood 98.8 % High 94.0 - 98.0 % [facility] [employer] POC pCO2 38.9 [facility] [employer] POC pH 7.395 7.350 - 7.450 [facility] P[facility] PO2 124.3 High [facility] Sample Site Right Radial Artery [facility] Jody Test Positive [facility] FIO2 28.0 [facility] HCO3 (Bld) [Moles/Vol] 24.1 mmol/L 21.0 - 28.0 mmol/L [facility] Interpretation and review of laboratory results Abnormal [facility] O2 Delivery Device Cannula [facility] Oxygen saturation in Blood 95.5 % 94.0 - 98.0 % [facility] POC pCO2 35.5 [facility] POC pH 7.439 7.350 - 7.450 [facility] POC PO2 74.9 Low [facility] Positive Base Excess, Art 0.2 mmol/L 0.0 - 3.0 mmol/L [facility] Sample Site Right Radial Artery [facility] Basic Metab w/rfx MGon 01-18 Anion gap [Moles/Vol] 22 mmol/L High 9-16 [facility] Comment on above: Performed By: #### C RP, ALCB, SED, GLYHGB, TROPI, MARCIO, CK, CDP, BH, BMPX ####[facility] [address] [place] [address] Lab Director: Ramiro Mark MD Calcium [Mass/Vol] 9.0 mg/dL Normal 8.6-10.4 [facility] Comment on above: Performed By: #### C RP, ALCB, SED, GLYHGB, TROPI, MARCIO, CK, CDP, BH, BMPX ####[facility] [address] [place] [address] Lab Director: Ramiro Mark MD Chloride [Moles/Vol] 94 mmol/L Low 98-107 [facility] Comment on above: Performed By: #### C RP, ALCB, SED, GLYHGB, TROPI, MARCIO, CK, CDP, BH, BMPX ####[facility] [address] [place] [address] Lab Director: Ramiro Mark MD CO2 [Moles/Vol] 15 mmol/L Low 20-31 [facility] Comment on above: Performed By: #### C RP, ALCB, SED, GLYHGB, TROPI, MARCIO, CK, CDP, BH, BMPX ####[facility] [place] [address] Lab Director: Ramiro Mark MD Creatinine [Mass/Vol] 1.7 mg/dL High 0.70-1.20 [facility] Comment on above: Performed By: #### C RP, ALCB, SED, GLYHGB, TROPI, MARCIO, CK, CDP, BH, BMPX ####[address] [address] Lab Director: Ramiro Mark MD GFR/1.73 sq M.predicted among non-blacks MDRD (S/P/Bld) [Vol rate/Area] 48 mL/min/{1.73_m2} Low >60 [facility] Comment on above: Result Comment: Thes [...] TROPI, MARCIO, CK, CDP, BH, BMPX ####[facility] [address] [place] [address] Lab Director: Ramiro Mark MD Glucose [Mass/Vol] 530 mg/dL Critically high 74-[address] [facility] Comment on above: Performed By: #### C RP, ALCB, SED, GLYHGB, TROPI, MARCIO, CK, CDP, BH, BMPX ####[address] [address] [facility] Director: Ramiro Mark MD Potassium [Moles/Vol] 5.6 mmol/L High 3.7-5.3 [facility] Comment on above: Performed By: #### C RP, ALCB, SED, GLYHGB, TROPI, MARCIO, CK, CDP, BH, BMPX ####[facility] [address] [place], [place] [phone] [facility] Director: Ramiro Mark MD Sodium [Moles/Vol] 131 mmol/L Low 136-145 [facility] Comment on above: Performed By: #### C RP, ALCB, SED, GLYHGB, TROPI, MARCIO, CK, CDP, BH, BMPX ####[facility] [address] [place] [phone] lab Director: Ramiro Mark MD Urea nitrogen [Mass/Vol] 47 mg/dL High 6-20 [facility] Comment on above: Performed By: #### C RP, ALCB, SED, GLYHGB, TROPI, MARCIO, CK, CDP, BH, BMPX ####[facility] [address] [place] [address] lab Director: Ramiro Mark MD Basic Metabolic Panel -0 Anion gap [Moles/Vol] 12 mmol/L 9 - 16 mmol/L [employer] Calcium [Mass/Vol] 8.2 mg/dL Low 8.6 - 10. 4 mg/dL [employer] Chloride [Moles/Vol] 105 mmol/L 98 - 10 7 mmol/L [employer] CO2 [Moles/Vol] 20 mmol/L 20 - 31 mmol/L [employer] Creatinine [Mass/Vol] 1.5 mg/dL High 0.70 - 1.20 mg/dL [employer] GFR/1.73 sq M.predicted MDRD (S/P/Bld) [Vol rate/Area] 55 mL/min/{1.73_m2} Low - PINF [employer] Glucose [Mass/Vol] 257 mg/dL High 74 - 99 mg/dL [facility] Interpretation and review of laboratory results Abnormal [facility] Potassium [Moles/Vol] 3.8 mmol/L 3.7 - 5.3 mmol/L [facility] Sodium [Moles/Vol] 137 mmol/L 136 - 145 mmol/L [facility] Urea nitrogen [Mass/Vol] 41 mg/dL High 6 - 20 mg/dL [facility] Anion gap [Moles/Vol] 10 mmol/L 9 - 16 mmol/L [facility] Calcium [Mass/Vol] 8.2 mg/dL Low 8.6 - 10. 4 mg/dL [facility] Chloride [Moles/Vol] 105 mmol/L 98 - 10 7 mmol/L [facility] CO2 [Moles/Vol] 22 mmol/L 20 - 31 mmol/L [facility] Creatinine [Mass/Vol] 1.6 mg/dL High 0.70 - 1.20 mg/dL [facility] GFR/1.73 sq M.predicted MDRD (S/P/Bld) [Vol rate/Area] 51 mL/min/{1.73_m2} Low - PINF [facility] Glucose [Mass/Vol] 208 mg/dL High 74 - 99 mg/dL [facility] Interpretation and review of laboratory results Abnormal [facility] Potassium [Moles/Vol] 4.4 mmol/L 3.7 - 5.3 mmol/L [facility] Sodium [Moles/Vol] 137 mmol/L 136 - 145 mmol/L [facility] Urea nitrogen [Mass/Vol] 42 mg/dL High 6 - 20 mg/dL [facility] Basic Metabolic Panel w/ Ref jose to MGon 01-19-2024 Anion gap [Moles/Vol] 22 mmol/L High 9 - 16 mmol/L [facility] Calcium [Mass/Vol] 9.0 mg/dL 8.6 - 10. 4 mg/dL [facility] Chloride [Moles/Vol] 94 mmol/L Low 98 - 10 7 mmol/L [facility] CO2 [Moles/Vol] 15 mmol/L Low 20 - 31 mmol/L [facility] Creatinine [Mass/Vol] 1.7 mg/dL High 0.70 - 1.20 mg/dL [facility] GFR/1.73 sq M.predicted MDRD (S/P/Bld) [Vol rate/Area] 48 mL/min/{1.73_m2} Low - PINF [facility] Glucose [Mass/Vol] 530 mg/dL Critically high 74 - 9 9 mg/dL [facility] Interpretation and review of laboratory results Abnormal [facility] Potassium [Moles/Vol] 5.6 mmol/L High 3.7 - 5.3 mmol/L [facility] Sodium [Moles/Vol] 131 mmol/L Low 136 - 145 mmol/L [facility] Urea nitrogen [Mass/Vol] 47 mg/dL High 6 - 20 mg/dL [facility] Basic Metabolic Profon 01-18 Anion gap [Moles/Vol] 12 mmol/L Normal 9-16 [facility] Comment on above: Performed By: #### LEENA Purcell, CHELO ####[facility] [address] [place] [address] Lab Director: Ramiro Mark MD Calcium [Mass/Vol] 8.2 mg/dL Low 8.6-10.4 [facility] Comment on above: Performed By: #### LEENA Purcell, CHELO ####[facility] [address] [place], [place] [phone] Lab Director: Ramiro Mark MD Chloride [Moles/Vol] 105 mmol/L Normal 98-107 [facility] Comment on above: Performed By: #### LEENA Purcell, CHELO ####[facility] [address] [place], [place] [phone] Lab Director: Ramiro Mark MD CO2 [Moles/Vol] 20 mmol/L Normal 20-31 [facility] Comment on above: Performed By: #### LEENA Purcell, CHELO ####[facility] [address] [place] [address] Lab Director: Ramiro Mark MD Creatinine [Mass/Vol] 1.5 mg/dL High 0.70-1.20 [facility] Comment on above: Performed By: #### LEENA Purcell, CHELO ####[facility] [address] [place] [address] [phone] Director: Ramiro Mark MD GFR/1.73 sq M.predicted among non-blacks MDRD (S/P/Bld) [Vol rate/Area] 55 mL/min/{1.73_m2} Low >60 [facility] Comment on above: Result Comment: Thes [...] secretion. Performed By: #### LEENA Purcell, CHELO ####[facility] [address] [place] [address] [phone] Director: Ramiro Mark MD Glucose [Mass/Vol] 257 mg/dL High 74-99 [facility] Comment on above: Performed By: #### LEENA Purcell, CHELO ####[facility] [address] [place] [address] [phone] Director: Ramiro Mark MD Potassium [Moles/Vol] 3.8 mmol/L Normal 3.7-5.3 [facility] Comment on above: Performed By: #### LEENA Purcell, CHELO ####[facility] [address] [place], [place] [phone] Director: Ramiro Mark MD Sodium [Moles/Vol] 137 mmol/L Normal 136-145 [facility] Comment on above: Performed By: #### M G, BMP, CHELO ####[facility] [address] [place], [place] [address])[phone] Director: Ramiro Mark MD Urea nitrogen [Mass/Vol] 41 mg/dL High 6-20 [facility] Comment on above: Performed By: #### M G, BMP, CHELO ####[facility] [address] [place], [place] [address])[phone] Director: Ramiro Mark MD Anion gap [Moles/Vol] 10 mmol/L Normal 9-16 [facility] Comment on above: Performed By: #### P TT, CHELO, PRCAL, MG, BMP, PT ####[facility] [address] [place] [address])[phone] Director: Ramiro Mark MD Calcium [Mass/Vol] 8.2 mg/dL Low 8.6-10.4 [facility] Comment on above: Performed By: #### P TT, CHELO, PRCAL, MG, BMP, PT ####[facility] [address] [place] [address])[phone] Director: Ramiro Mark MD Chloride [Moles/Vol] 105 mmol/L Normal 98-107 [facility] Comment on above: Performed By: #### P TT, CHELO, PRCAL, MG, BMP, PT ####[address] [address])[phone] Director: Ramiro Mark MD CO2 [Moles/Vol] 22 mmol/L Normal 20-31 [facility] Comment on above: Performed By: #### P TT, CHELO, PRCAL, MG, BMP, PT ####[facility] [address] [place] [address])[phone] Director: Ramiro Mark MD Creatinine [Mass/Vol] 1.6 mg/dL High 0.70-1.20 [facility] Comment on above: Performed By: #### P TT, CHELO, PRCAL, MG, BMP, PT ####[facility] [address] [place] [address] Lab Director: Ramiro Mark MD GFR/1.73 sq M.predicted among non-blacks MDRD (S/P/Bld) [Vol rate/Area] 51 mL/min/{1.73_m2} Low >60 [facility] Comment on above: Result Comment: Thes [...] TT, CHELO, PRCAL, MG, BMP, PT ####[address] [address] Lab Director: Ramiro Mark MD Glucose [Mass/Vol] 208 mg/dL High 74-99 [facility] Comment on above: Performed By: #### P TT, CHELO, PRCAL, MG, BMP, PT ####[address] [address] Lab Director: Ramiro Mark MD Potassium [Moles/Vol] 4.4 mmol/L Normal 3.7-5.3 [facility] Comment on above: Result Comment: SPEC IMEN SLIGHTLY HEMOLYZED, RESULTS MAY BE ADVERSELY AFFECTED. Performed By: #### P TT, CHELO, PRCAL, MG, BMP, PT ####[facility] [address] [place] [address] Lab Director: Ramiro Mark MD Sodium [Moles/Vol] 137 mmol/L Normal 136-145 [facility] Comment on above: Performed By: #### P TT, CHELO, PRCAL, MG, BMP, PT ####[facility] [address] [place] [address] Lab Director: Ramiro Mark MD Urea nitrogen [Mass/Vol] 42 mg/dL High 6-20 [facility] Comment on above: Performed By: #### P TT, CHELO, PRCAL, MG, BMP, PT ####[facility] [address] [place], [place] [phone] lab Director: Ramiro Mark MD Beta Hydroxybutyrateon 01-18 Beta Hydroxybutyrate 3.37 mmol/L High 0.02-0.27 [facility] Comment on above: Performed By: #### C RP, ALCB, SED, GLYHGB, TROPI, MARCIO, CK, CDP, BH, BMPX ####[facility] [address] [place], [place] [phone] lab Director: Ramiro Mark MD Beta-Hydroxybutyrateon 01-18 Beta hydroxybutyrate [Mass/Vol] 3.37 mmol/L High 0.02 - 0.27 mmol/L [facility] C-Reactive Proteinon 024 CRP High sensitivity method [Mass/Vol] 3.7 mg/L 0.0 - 5.0 mg/L [facility] CRP [Mass/Vol] 3.7 mg/L Normal 0.0-5.0 [facility] Comment on above: Performed By: #### C RP, ALCB, SED, GLYHGB, TROPI, MARCIO, CK, CDP, BH, BMPX ####[facility] [address] [place] [phone] lab Director: Ramiro Mark MD CBC with Auto Differentialon 01-19-2024 Basophils (Bld) [#/Vol] 0.08 10*3/uL [facility] [employer] Basophils/100 WBC (Bld) 1 % 0 - 2 % [facility] Eosinophils (Bld) [#/Vol] 0.03 10*3/uL [facility] [employer] Eosinophils/100 WBC (Bld) 0 % Low 1 - 4 % [facility] Erythrocyte distribution width (RBC) [Ratio] 13.6 % 11.8 - 14.4 % [facility] Hematocrit (Bld) [Volume fraction] 37.2 % Low 40.7 - 50.3 % [facility] Hemoglobin (Bld) [Mass/Vol] 12.9 g/dL Low 13.0 - 17.0 g/dL [facility] Immature granulocytes (Bld) [#/Vol] 0.07 10*3/uL [facility] Immature granulocytes/100 WBC (Bld) 1 % High 0 [facility] Interpretation and review of laboratory results Abnormal [facility] Lymphocytes/100 WBC (Bld) 6 % Low 24 - 43 % [facility] Lymphocytes/100 WBC (Bld) 0.77 % Low [facility] MCH (RBC) [Entitic mass] 29.3 pg 25.2 - 33.5 pg [facility] MCHC (RBC) [Mass/Vol] 34.7 g/dL 28.4 - 34.8 g/dL [facility] MCV (RBC) [Entitic vol] 84.4 fL 82.6 - 102.9 fL [facility] Monocytes/100 WBC (Bld) 1 % Low 3 - 12 % [facility] Monocytes/100 WBC (Bld) 0.18 % [facility] Neutrophils/100 WBC (Bld) 91 % High 36 - 65 % [facility] Nucleated RBC/100 WBC (Bld) [Ratio] 0.0 % 0.0 per 100 WBC [facility] Platelet mean volume (Bld) [Entitic vol] 10.9 fL 8.1 - 13.5 fL [facility] Platelets (Bld) [#/Vol] 201 10*3/uL [facility] RBC (Bld) [#/Vol] 4.41 10*6/uL 4.21 - 5.7 7 m/uL [facility] Segmented neutrophils/100 WBC (Bld) 12.03 % High [facility] WBC other (Bld) [#/Vol] 13.2 High [facility] CBC with Diffon 01-19-2024 Abs. Basophil 0.08 k/uL Normal 0.00-0.20 [facility] Comment on above: Performed By: #### C RP, ALCB, SED, GLYHGB, TROPI, MARCIO, CK, CDP, BH, BMPX ####[facility] [address] [place], [place] [address])[phone] Director: Ramiro Mark MD Abs.Imm.Granulocyte 0.07 k/uL Normal 0.00-0.30 [facility] Comment on above: Performed By: #### C RP, ALCB, SED, GLYHGB, TROPI, MARCIO, CK, CDP, BH, BMPX ####[place], [place] [address])[phone] Director: Ramiro Mark MD Abs.Neutrophil (Seg) 12.03 k/uL High 1.50-8.10 [facility] Comment on above: Performed By: #### C RP, ALCB, SED, GLYHGB, TROPI, MARCIO, CK, CDP, BH, BMPX ####[facility] [address] [place], [place] [address])[phone] Director: Ramiro Mark MD Basophils/100 WBC (Bld) 1 % Normal 0-2 [facility] Comment on above: Performed By: #### C RP, ALCB, SED, GLYHGB, TROPI, MARCIO, CK, CDP, BH, BMPX ####[facility] [address] [place], [place] [address])[phone] Director: Ramiro Mark MD Eosinophils (Bld) [#/Vol] 0.03 10*3/uL Normal 0.00-0.44 [facility] Comment on above: Performed By: #### C RP, ALCB, SED, GLYHGB, TROPI, MARCIO, CK, CDP, BH, BMPX ####[facility] [address] [place], [place] [address])[phone] Director: Ramiro Mark MD Eosinophils/100 WBC (Bld) 0 % Low 1-4 [facility] Comment on above: Performed By: #### C RP, ALCB, SED, GLYHGB, TROPI, MARCIO, CK, CDP, BH, BMPX ####[facility] [address] [place], [place] [address])[phone] Director: Ramiro Mark MD Erythrocyte distribution width (RBC) [Ratio] 13.6 % Normal 11.8-14.4 [facility] Comment on above: Performed By: #### C RP, ALCB, SED, GLYHGB, TROPI, MARCIO, CK, CDP, BH, BMPX ####[place], [place] [address])[phone] Director: aRmiro Mark MD Hematocrit (Bld) [Volume fraction] 37.2 % Low 40.7-50.3 [facility] Comment on above: Performed By: #### C RP, ALCB, SED, GLYHGB, TROPI, MARCIO, CK, CDP, BH, BMPX ####[facility] [address] [place], [place] [address])[phone] Director: Ramiro Mark MD Hemoglobin (Bld) [Mass/Vol] 12.9 g/dL Low 13.0-17.0 [facility] Comment on above: Performed By: #### C RP, ALCB, SED, GLYHGB, TROPI, MARCIO, CK, CDP, BH, BMPX ####[facility] [address] [place], [place] [address])[phone] Director: Ramiro Mark MD Immature granulocytes/100 WBC (Bld) 1 % High 0 [facility] Comment on above: Performed By: #### C RP, ALCB, SED, GLYHGB, TROPI, MARCIO, CK, CDP, BH, BMPX ####[facility] [address] [place] [address] Lab Director: Ramiro Mark MD Lymphocytes (Bld) [#/Vol] 0.77 10*3/uL Low 1.10-3.70 [facility] Comment on above: Performed By: #### C RP, ALCB, SED, GLYHGB, TROPI, MARCIO, CK, CDP, BH, BMPX ####[facility] [address] [place], [place] [address])[phone] Director: Ramiro Mark MD Lymphocytes/100 WBC (Bld) 6 % Low 24-43 [facility] Comment on above: Performed By: #### C RP, ALCB, SED, GLYHGB, TROPI, MARCIO, CK, CDP, BH, BMPX ####[place], [place] [address])[phone] Director: Ramiro Mark MD MCH (RBC) [Entitic mass] 29.3 pg Normal 25.2-33.5 [facility] Comment on above: Performed By: #### C RP, ALCB, SED, GLYHGB, TROPI, MARCIO, CK, CDP, BH, BMPX ####[facility] [address] [place], [place] [address])[phone] Director: Ramiro Mark MD MCHC (RBC) [Mass/Vol] 34.7 g/dL Normal 28.4-34.8 [facility] Comment on above: Performed By: #### C RP, ALCB, SED, GLYHGB, TROPI, MARCIO, CK, CDP, BH, BMPX ####[facility] [address] [place], [place] [address])[phone] Director: Ramiro Mark MD MCV (RBC) [Entitic vol] 84.4 fL Normal 82.6-102.9 [facility] Comment on above: Performed By: #### C RP, ALCB, SED, GLYHGB, TROPI, MARCIO, CK, CDP, BH, BMPX ####[facility] [address] [place], [place] [address])[phone] Director: Ramiro Mark MD Monocytes (Bld) [#/Vol] 0.18 10*3/uL Normal 0.10-1.20 [facility] Comment on above: Performed By: #### C RP, ALCB, SED, GLYHGB, TROPI, MARCIO, CK, CDP, BH, BMPX ####[id number] [place] [address] Lab Director: Ramiro Mark MD Monocytes/100 WBC (Bld) 1 % Low 3-12 [place] [facility] Comment on above: Performed By: #### C RP, ALCB, SED, GLYHGB, TROPI, MARCIO, CK, CDP, BH, BMPX ####[address] [address])[phone] Director: Ramiro Mark MD Neutrophil (Seg) 91 % High 36-65 [facility] Comment on above: Performed By: #### C RP, ALCB, SED, GLYHGB, TROPI, MARCIO, CK, CDP, BH, BMPX ####[facility] [address] [place] [address] Lab Director: Ramiro Mark MD NRBC Automated 0.0 per 100 WBC Normal 0.0 [facility] Comment on above: Performed By: #### C RP, ALCB, SED, GLYHGB, TROPI, MARCIO, CK, CDP, BH, BMPX ####[place], [place] [address])[phone] Director: Ramiro Mark MD Platelet mean volume (Bld) [Entitic vol] 10.9 fL Normal 8.1-13.5 [facility] Comment on above: Performed By: #### C RP, ALCB, SED, GLYHGB, TROPI, MARCIO, CK, CDP, BH, BMPX ####[address] [place] [address] Lab Director: Ramiro Mark MD Platelets (Bld) [#/Vol] 201 10*3/uL Normal 138-453 [facility] Comment on above: Performed By: #### C RP, ALCB, SED, GLYHGB, TROPI, MARCIO, CK, CDP, BH, BMPX ####[facility] Hhkphyamkdud6610 [place], [place] [phone] Lab Director: Ramiro Mark MD RBC (Bld) [#/Vol] 4.41 10*6/uL Normal 4.21-5.77 [facility] Comment on above: Performed By: #### C RP, ALCB, SED, GLYHGB, TROPI, MARCIO, CK, CDP, BH, BMPX ####[facility] [address] [place] [address] Lab Director: Ramiro Mark MD WBC (Bld) [#/Vol] 13.2 10*3/uL High 3.5-11.3 [facility] Comment on above: Performed By: #### C RP, ALCB, SED, GLYHGB, TROPI, MARCIO, CK, CDP, BH, BMPX ####[facility] [address] [place] [address] Lab Director: Ramiro Mark MD CKon 01-19-2024 CK [Catalytic activity/Vol] 226 U/L 39 - 308 U/L [facility] CSF Cell Counton 01-19-2024 Appearance (U) Clear Normal [facility] Comment on above: Performed By: #### C TP, CGLU, MEVP, CFVD, CFCNT ####[facility] [address] [place] [address] Lab Director: Ramiro Mark MD#### AWSEBASSDESHAUN Lopez ####[address] [address] Lab Director: Wil Swanson MD RBC (Bld) [#/Vol] 0 10*6/uL Normal 0 [facility] Comment on above: Performed By: #### C TP, CGLU, MEVP, CFVD, CFCNT ####[facility] N[address]creqj[address]18 [place] [address] Lab Director: Ramiro Mark MD#### ARTUR BRIGGSYMCT ####[facility] [address] [place] [address] Lab Director: Wil Swanson MD Tube Number 3 Normal [facility] Comment on above: Performed By: #### C TP, CGLU, MEVP, CFVD, CFCNT ####[facility] [address] [place] [address] Lab Director: Ramiro Mark MD#### ARTUR BRIGGSYMCT ####[facility] [address] [place] [address] [phone] Lab Director: Wil Swanson MD WBC (Bld) [#/Vol] 0 10*3/uL Normal <5 [facility] Comment on above: Performed By: #### C TP, CGLU, MEVP, CFVD, CFCNT ####[address] [address] Lab Director: Ramiro Mark MD#### CHE[place], ARTURYMCT ####[facility] [address] [place] [address] Lab Director: Wil Swanson MD Xanthochromia ABSENT Normal [facility] Comment on above: Performed By: #### C TP, CGLU, MEVP, CFVD, CFCNT ####[facility] [address] [place] [address] Lab Director: Ramiro Mark MD#### CHESTER, ALYMCT ####[facility] [address] [place] [address] [phone] Lab Director: Wil Swanson MD Volume 12 mL Normal [facility] Comment on above: Performed By: #### C TP, CGLU, MEVP, CFVD, CFCNT ####[facility] Rfhnykbdvrpb7810 [place] [address] lab Director: Ramiro Mark MD#### AWNCSF, ALYMCT ####[facility] [address] [place] [address] lab Director: Wil Swanson MD CT HEAD [...] 11:07 p.m. on 01/18/2024. Interpreted by: Ashley Cinrton MD Signed by: Ashley Cintron MD 01/19/24 Final result Normal [facility] Calcium, Ionicon 01-19-2024 Calcium [Moles/Vol] 1.13 mmol/L Normal 1.13-1.33 [facility] Comment on above: Performed By: #### I OCAL ####[facility] W[address]llieadem[address] [place], [place] [phone] lab Director: Ramiro Mark MD Calcium, Ionizedon Calcium.ionized (Bld) [Moles/Vol] 1.13 mmol/L 1.13 - 1.33 mmol/L [facility] [email or web address] [facility] Cell Count with Differential , CSFon 01-19-2024 Appearance (CSF) Clear [facility] Nucleated cells Manual cnt (Body fld) [#/Vol] [address] RBC Manual cnt (Body fld) [#/Vol] 0 0 cells/uL [facility] Specimen volume (CSF) 12 mL [facility] Vee24 Tube number Nom (CSF) [ID] 3 [facility] Xanthochromia Ql (CSF) ABSENT TRIP [facility] Creatine Kinaseon 01-19-2024 CK [Catalytic activity/Vol] 226 U/L Normal 39-308 [facility] Comment on above: Performed By: #### C RP, ALCB, SED, GLYHGB, TROPI, MARCIO, CK, CDP, BH, BMPX ####[facility] [address] [place], [place] [phone] Lab Director: Ramiro Mark MD DRUG SCREEN MULTI URINEon Amphetamines Ql (U) Negative NEGATIVE [facility] Barbiturates Screen Ql (U) Negative NEGATIVE [facility] Benzodiazepines Ql (U) Negative NEGATIVE [facility] Cannabinoids Screen Ql (U) Negative NEGATIVE [facility] Cocaine Ql (U) Negative NEGATIVE [facility] fentaNYL Ql (U) Negative NEGATIVE [facility] Methadone Ql (U) Negative NEGATIVE [facility] Opiates Screen Ql (U) Negative NEGATIVE [facility] oxyCODONE Ql (U) Negative NEGATIVE [facility] Phencyclidine Ql (U) Negative NEGATIVE [facility] Test Information Assay provides rapid clinical screening only. Presumptive positive results for legal purposes should be confirmed by another method. To request confirmation, please call the lab within 7 days of sample submission. [facility] Drug Scr, Abuse, Uron 2023 Amphetamine(s),Ur Negative Normal NEG [facility] Comment on above: Result Comment: Cuto ff: 1000 ng/mL Performed By: #### D AU ####[facility] [address] [place] [address] Lab Director: Ramiro Mark MD Barbiturate(s),Ur Negative Normal NEG [facility] Comment on above: Result Comment: Cuto ff: 200 ng/ml Performed By: #### D AU ####[address] [address] Lab Director: Ramiro Mark MD Benzodiazepine(s) Negative Normal NEG [facility] Comment on above: Result Comment: Cuto ff: 200 ng/ml Performed By: #### D AU ####[address] [address] Lab Director: Ramiro Mark MD Cannabinoid(s),Ur Negative Normal NEG [facility] Comment on above: Result Comment: Cuto ff: 50 ng/ml Performed By: #### D AU ####[address] [address] Lab Director: Ramiro Mark MD Cocaine Metabolite Negative Normal NEG [facility] Comment on above: Result Comment: Cuto ff: 300 ng/ml Performed By: #### D AU ####[address] [address] Lab Director: Ramiro Mark MD Fentanyl, Urine Negative Normal NEG [facility] Comment on above: Result Comment: Cuto ff: 5 ng/ml Performed By: #### D AU ####[address] [address] Lab Director: Ramiro Mark MD Interpretive Info Assay provides rapid clinical screening only. Presumptive positive results for Normal [facility] Comment on above: Result Comment: lega l purposes should be confirmed by another method. To request confirmation, please call the lab within 7 days of sample submission. Performed By: #### D AU ####[address] [address] Lab Director: Ramiro Mark MD Methadone Ql (U) Negative Normal NEG [facility] Comment on above: Result Comment: Cuto ff: 300 ng/ml Performed By: #### D AU ####[address] [phone] Director: Ramiro Mark MD Opiate(s), Ur Negative Normal NEG [facility] Comment on above: Result Comment: Cuto ff: 300 ng/ml Performed By: #### D AU ####[address] [address] Lab Director: Ramiro Mark MD Oxycodone, Urine Negative Normal NEG [facility] Comment on above: Result Comment: Cuto ff: 100 ng/ml Performed By: #### D AU ####[address] [address] Lab Director: Ramiro Mark MD Phencyclidine, Ur Negative Normal NEG [facility] Comment on above: Result Comment: Cuto ff: 25 ng/ml Performed By: #### D AU ####[address] [address] Lab Director: Ramiro Mark MD Ethanolon 01-19-2024 Ethanol percent <0.010 NINF - 0.010 % [facility] Ethanolamine [Mass/Vol] mg/dL NINF - 10 mg/dL [facility] Ethanol Alcoholon 01-19-2024 Ethanol [Mass/Vol] mg/dL Normal <10 [facility] Comment on above: Performed By: #### C RP, ALCB, SED, GLYHGB, TROPI, MARCIO, CK, CDP, BH, BMPX ####[facility] [address] [place], [place] [phone] Lab Director: Ramiro Mark MD Ethanol percent <0.010 Normal <0.010 [facility] Comment on above: Performed By: #### C RP, ALCB, SED, GLYHGB, TROPI, MARCIO, CK, CDP, BH, BMPX ####[facility] [address] [place] [address] Lab Director: Ramiro Mark MD Glucose (POC)on 01-19-2024 Glucose [Mass/Vol] 199 mg/dL High 74-100 [facility] Glucose CSFon 01-19-2024 Glucose (CSF) [Mass/Vol] 194 mg/dL High 40 - 70 mg/dL [facility] Glucose,CSFon 01-19-2024 Glucose [Mass/Vol] 194 mg/dL High 40-70 [facility] Comment on above: Performed By: #### C TP, CGLU, MEVP, CFVD, CFCNT ####[facility] [address] [place], [place] [phone] Lab Director: Ramiro Mark MD#### AWNCSF, ALYMCT ####[facility] [address] [place] [address] Lab Director: Wil Swanson MD Glucose,Whole Bloodon 2023 Glucose [Mass/Vol] 77 mg/dL Normal 75-110 [facility] Glucose [Mass/Vol] 111 mg/dL High 75-110 [facility] Glucose [Mass/Vol] 179 mg/dL High 75-110 [facility] Glucose [Mass/Vol] 257 mg/dL High 75-110 [facility] Glucose [Mass/Vol] 255 mg/dL High 75-110 [facility] Glucose [Mass/Vol] 235 mg/dL High 75-110 [facility] Glucose [Mass/Vol] 178 mg/dL High 75-110 [facility] Glucose [Mass/Vol] 190 mg/dL High 75-110 [facility] Glucose [Mass/Vol] 235 mg/dL High 75-110 [facility] Glucose [Mass/Vol] 269 mg/dL High 75-110 [facility] Glucose [Mass/Vol] 303 mg/dL High 75-110 [facility] Glucose [Mass/Vol] 297 mg/dL High 75-110 [facility] Glucose [Mass/Vol] 496 mg/dL Critically high 75-[address] [facility] Glucose [Mass/Vol] 375 mg/dL High 75-110 [facility] Glucose [Mass/Vol] 548 mg/dL Critically high 75-[address] [facility] Glucose [Mass/Vol] 506 mg/dL Critically high 75-[address] [facility] Comment on above: Result Comment: Crit icaesequiel Noted Guidance for puncture of Lum bar spineon 01-19-2024 Radiology Study observation (narrative) [email or web address] HSV DNA, PCRon 01-19-2024 HSV source .CSF Normal [facility] Comment on above: Performed By: #### A HSVPC ####[facility] [address] [place] [address] Lab Director: KAYLYNN Moreno [address] [place] [address] Lab Director: Wil Swanson MD Hemoglobin A1Con 01-19-2024 Average glucose Estimated from glycated hemoglobin (Bld) [Mass/Vol] 298 mg/dL [facility] HbA1c (Bld) [Mass fraction] 12.0 % High 4.0 - 6.0 % [facility] Interpretation and review of laboratory results Abnormal [facility]STITUTEStreetSh[facility], [facility] Glucose [Mass/Vol] 298 mg/dL Normal [facility] Comment on above: Result Comment: The ADA and AACC recommend providing the estimated average glucose result to permit better patient understanding of their HBA1c result. Performed By: #### C RP, ALCB, SED, GLYHGB, TROPI, MARCIO, CK, CDP, BH, BMPX ####[facility] [address] [place], [place] [phone] Lab Director: Ramiro Mark MD HbA1c (Bld) [Mass fraction] 12.0 % High 4.0-6.0 [facility] Comment on above: Performed By: #### C RP, ALCB, SED, GLYHGB, TROPI, MARCIO, CK, CDP, BH, BMPX ####[facility] [address] [place], [place] [phone] [facility] Director: Ramiro Mark MD Lactic Acidon 01-19-2024 Lactic Acid, Whole Blood 1.2 mmol/L 0.7 - 2.1 mmol/L [facility] Lactic Acid,Whole Bl 1.2 mmol/L Normal 0.7-2.1 [facility] Comment on above: Performed By: #### L ACTIC ####[address] [place], [place] [phone] lab Director: Ramiro Mark MD Lactate (BldV) [Moles/Vol] 2.2 mmol/L 0.5 - 2.2 mmol/L [facility] Lactate [Moles/Vol] 2.2 mmol/L Normal 0.5-2.2 [facility] Comment on above: Performed By: #### L ACTIC #### [facility] [address] [place] [address] Custom Clothier: Ramiro Santillan MD MR Brain WO and W contrast I Von 01-19-2024 [facility] RIS CONSOLIDATED [facility] RIS CONSOLIDATED [facility] Radiology Study observation (narrative) [facility] MR Brain WO and W contrast I VOrdered By: Daniel Ramos on 01-19-2024 [facility] Work Phone: MRI BRAIN W WO CONTRASTon MRI BRAIN W WO CONTRAST Normal [facility] MRSA DNA Probe, Nasalon - MRSA, DNA, Nasal Negative NEGATIVE [facility] Specimen Description .NASAL SWAB [facility] MRSA, DNA, Nasalon MRSA, DNA, Nasal Negative Normal NEG [facility] Comment on above: Result Comment: NEGA TIVE: MRSA DNA not detected by nucleic acid amplification.Results should be used as an adjunct to nosocomial control efforts to identify patients needing enhanced precautions.The test is not intended to identify patients with staphylococcal infections. Results should not be used to guide or monitor treatment for MRSA infections. Performed By: #### M RSANO ####Search to Phone2222 [place] [address] Lab Director: Ramiro Mark MD Specimen Description .NASAL SWAB Normal [facility] Comment on above: Performed By: #### M RSANO ####[facility] [address] [place] [address] Lab Director: Ramiro Mark MD Magnesiumon 01-19-2024 Magnesium [Mass/Vol] 2.1 mg/dL 1.6 - 2 .6 mg/dL [facility] Magnesium [Mass/Vol] 2.1 mg/dL Normal 1.6-2.6 [facility] Comment on above: Performed By: #### M G, BMP, CHELO ####[employer] [address] [place], [place] [phone] Lab Director: Ramiro Mark MD Magnesium [Mass/Vol] 2.0 mg/dL 1.6 - 2 .6 mg/dL [facility] Magnesium [Mass/Vol] 2.0 mg/dL Normal 1.6-2.6 [facility] Comment on above: Performed By: #### P TT, CHELO, PRCAL, MG, BMP, PT ####Search [address] [place], [place] [phone] Lab Director: Ramiro Mark MD Meningitis Encephalitis Pane l CSF, Molecularon 01-19-2024 C. gattii+neoformans DNA MEETA+non-probe Ql (CSF) Not detected Not Detected [facility] CMV DNA MEETA+non-probe Ql (CSF) Not detected Not Detected [facility] E. coli K1 DNA MEETA+non-probe Ql (CSF) Not detected Not Detected [facility] Enterovirus RNA MEETA+non-probe Ql (CSF) Not detected Not Detected [facility] H. influenzae DNA MEETA+non-probe Ql (CSF) Not detected Not Detected [facility] HHV 6 DNA MEETA+non-probe Ql (CSF) Not detected Not Detected [facility] HSV 1 DNA MEETA+non-probe Ql (CSF) Not detected Not Detected [facility] HSV 2 DNA MEETA+non-probe Ql (CSF) Not detected Not Detected [facility] L. monocytogenes DNA MEETA+non-probe Ql (CSF) Not detected Not Detected [facility] N. meningitidis DNA MEETA+non-probe Ql (CSF) Not detected Not Detected [facility] Parechovirus A RNA MEETA+non-probe Ql (CSF) Not detected Not Detected [facility] S. agalactiae DNA MEETA+non-probe Ql (CSF) Not detected Not Detected [facility] S. pneumoniae DNA MEETA+non-probe Ql (CSF) Not detected Not Detected [facility] Specimen Description .CSF [facility] VZV DNA MEETA+non-probe Ql (CSF) Not detected Not Detected [facility] Meningitis Panelon C. neoformans/gattii Not detected Normal NOTDET [facility] Comment on above: Result Comment: Perf ormed by multiplexed nucleic acid assay. Performed By: #### C TP, CGLU, MEVP, CFVD, CFCNT ####Search to Phone2222 [place], [place] [phone] lab Director: Ramiro Mark MD#### [place], ALYMCT ####[facility] [address] [place] [address] [phone] lab Director: Wil Swanson MD Cytomegalovirus Not detected Normal [facility] Comment on above: Performed By: #### C TP, CGLU, MEVP, CFVD, CFCNT ####[facility] [address] [place] [address] [phone] Lab Director: Ramiro Mark MD#### CHE[place], ALYMCT ####[facility] [address] [place] [address] [phone] lab Director: Wil Swanson MD Enterovirus Not detected Normal [facility] Comment on above: Performed By: #### C TP, CGLU, MEVP, CFVD, CFCNT ####[facility] [address] [place] [address] lab Director: Ramiro Mark MD#### CHESTER, ALYMCT ####[facility] [address] [place] [address] Lab Director: Wil Swanson MD Escherichia coli K1 Not detected Normal [facility] Comment on above: Performed By: #### C TP, CGLU, MEVP, CFVD, CFCNT ####[facility] [address] [place] [address] [phone] Lab Director: Ramiro Mark MD#### CHESTER, ALYMCT ####[facility] [address] [place] [address] [phone] Lab Director: Wil Swanson MD Haemoph. influenzae Not detected Normal [facility] Comment on above: Performed By: #### C TP, CGLU, MEVP, CFVD, CFCNT ####[facility] [address] [place] [address] Lab Director: Ramiro Mark MD#### CHESTER, ALYMCT ####[facility] [address] [place] [address] [phone] Lab Director: Wil Swanson MD HSV-1 Not detected Normal [facility] Comment on above: Performed By: #### C TP, CGLU, MEVP, CFVD, CFCNT ####[address] [address] Lab Director: Ramiro Mark MD#### [place] ALYMCT ####[facility] [address] [place] [address] [phone] Lab Director: Wil Swanson MD HSV-[address] [facility] Comment on above: Performed By: #### C TP, CGLU, MEVP, CFVD, CFCNT ####[address] [address] Lab Director: Ramiro Mark MD#### CHE[place] ALYMCT ####[facility] [address] [place] [address] [phone] Lab Director: Wil Swanson MD Human herpesvirus 6 Not detected Normal [facility] Comment on above: Performed By: #### C TP, CGLU, MEVP, CFVD, CFCNT ####[facility] [address] [place] [address] Lab Director: Ramiro Mark MD#### CHESTER, ALYMCT ####[facility] [address] [place] [address] [phone] Lab Director: Wil Swanson MD Human parechovirus Not detected Normal [facility] Comment on above: Performed By: #### C TP, CGLU, MEVP, CFVD, CFCNT ####[facility] [address]ovrjwf7732 [place] [address] Lab Director: Ramiro Mark MD#### ARTUR BRIGGSYMCT ####[facility] [address] [place] [address] Lab Director: Wil Swanson MD List. monocytogenes Not detected Normal [facility] Comment on above: Performed By: #### C TP, CGLU, MEVP, CFVD, CFCNT ####[facility] [address] [place] [address] Lab Director: Ramiro Mark MD#### ARTUR BRIGGSYMCT ####[facility] [address] [place] [address] Lab Director: Wil Swanson MD Neis. meningitidis Not detected Normal [facility] Comment on above: Performed By: #### C TP, CGLU, MEVP, CFVD, CFCNT ####[facility] [address] [place] [address] Lab Director: Ramiro Mark MD#### ARTUR BRIGGSYMCT ####[facility] [address] [place] [address] [phone] Lab Director: Wil Swanson MD Strep. agalactiae Not detected Normal [facility] Comment on above: Performed By: #### C TP, CGLU, MEVP, CFVD, CFCNT ####[facility] [address] [place] [address] Lab Director: Ramiro Mark MD#### CHE[place] ALYMCT ####[facility] [address] [place] [address] Lab Director: Wil Swanson MD Strep. pneumoniae Not detected Normal [facility] Comment on above: Performed By: #### C TP, CGLU, MEVP, CFVD, CFCNT ####[facility] [address]167 [place] [address] Lab Director: Ramiro Mark MD#### CHESTER, ALYMCT ####[facility] [address] [place] [address] [phone] Lab Director: Wil Swanson MD Varicella-zoster Not detected Normal [facility] Comment on above: Performed By: #### C TP, CGLU, MEVP, CFVD, CFCNT ####[facility] [address] [place] [address] Lab Director: Ramiro Mark MD#### [place], ARTURYMCT ####[facility] [address] [place] [address] [phone] lab Director: Wil Swanson MD Source: .CSF Normal [facility] Comment on above: Performed By: #### C TP, CGLU, MEVP, CFVD, CFCNT ####[address] [address] Lab Director: Ramiro Mark MD#### CHESTER, ALYMCT ####[facility] [address] [place] [address] [phone] lab Director: Wil Swanson MD Myoglobinon 01-19-2024 Myoglobin [Mass/Vol] 166 ng/mL High 28-72 [facility] Comment on above: Performed By: #### C RP, ALCB, SED, GLYHGB, TROPI, MARCIO, CK, CDP, BH, BMPX ####[facility] [address] [place] [address] Lab Director: Ramiro Mark MD Myoglobin, Bloodon Myoglobin [Mass/Vol] 166 ng/mL High 28 - 72 ng/mL [facility] No Panel Informationon 01-18 [facility] Interpretation and review of laboratory results Abnormal [facility] Interpretation and review of laboratory results Abnormal [facility] Interpretation and review of laboratory results Abnormal [facility] Radiology Study observation (narrative) [facility] Interpretation and review of laboratory results Abnormal [facility] Glucose Fingerstickon Glucose [Mass/Vol] 77 mg/dL 75 - 110 mg/dL [facility] Glucose [Mass/Vol] 111 mg/dL High 75 - 110 mg/dL [facility] Interpretation and review of laboratory results Abnormal [facility] Glucose [Mass/Vol] 179 mg/dL High 75 - 110 mg/dL [facility] [employer] HE[facility] Interpretation and review of laboratory results Abnormal [facility] Glucose [Mass/Vol] 257 mg/dL High 75 - 110 mg/dL [facility] [employer] HE[facility] Interpretation and review of laboratory results Abnormal [facility] Glucose [Mass/Vol] 255 mg/dL High 75 - 110 mg/dL [facility] [employer] HE[facility] Interpretation and review of laboratory results Abnormal [facility] Glucose [Mass/Vol] 235 mg/dL High 75 - 110 mg/dL [facility] [employer] [facility] Interpretation and review of laboratory results Abnormal [facility] Glucose [Mass/Vol] 178 mg/dL High 75 - 110 mg/dL [facility] Interpretation and review of laboratory results Abnormal [facility] Glucose [Mass/Vol] 190 mg/dL High 75 - 110 mg/dL [facility] [employer] [facility] Interpretation and review of laboratory results Abnormal [facility] Glucose [Mass/Vol] 235 mg/dL High 75 - 110 mg/dL [facility] [employer] [facility] Interpretation and review of laboratory results Abnormal [facility] Glucose [Mass/Vol] 269 mg/dL High 75 - 110 mg/dL [facility] Interpretation and review of laboratory results Abnormal [facility] Glucose [Mass/Vol] 303 mg/dL High 75 - 110 mg/dL [facility] Interpretation and review of laboratory results Abnormal [facility] Glucose [Mass/Vol] 297 mg/dL High 75 - 110 mg/dL [facility] Interpretation and review of laboratory results Abnormal [facility] Glucose [Mass/Vol] 496 mg/dL Critically high 75 - 1 10 mg/dL [facility] Glucose [Mass/Vol] 375 mg/dL High 75 - 110 mg/dL [facility] Glucose [Mass/Vol] 548 mg/dL Critically high 75 - 1 10 mg/dL [facility] Interpretation and review of laboratory results Abnormal [facility] Glucose [Mass/Vol] 506 mg/dL Critically high 75 - 1 10 mg/dL [facility] Interpretation and review of laboratory results Abnormal [facility] POCT Glucoseon 01-19-2024 Glucose [Mass/Vol] 199 mg/dL High 74 - 100 mg/dL [facility] PTon 01-19-2024 INR Coag (PPP) [Relative time] 1.1 {INR} Normal [facility] Comment on above: Result Comment: Ther apeutic Range: Moderate Anticoagulant Intensity: INR = 2.0-3.0 High Anticoagulant Intensity: INR = 2.5-3.5 Performed By: #### P TT, CHELO, PRCAL, MG, BMP, PT ####[facility] [address] [place], [place] [id number] Lab Director: Ramiro Mark MD PT Coag (PPP) [Time] 13.8 s Normal 11.7-14.9 [facility] Comment on above: Performed By: #### P TT, CHELO, PRCAL, MG, BMP, PT ####[facility] [address] [place], [place] [id number] Lab Director: Ramiro Mark MD Phosphoruson 01-19-2024 Phosphate [Mass/Vol] 3.8 mg/dL 2.5 - 4 .5 mg/dL [facility] Phosphate [Mass/Vol] 2.6 mg/dL 2.5 - 4 .5 mg/dL [facility] Phosphorus, Inorg.on 024 Phosphorus, Inorg. 3.8 mg/dL Normal 2.5-4.5 [facility] Comment on above: Performed By: #### M G, BMP, CHELO ####[facility] [address] [place], [place] [id number] Lab Director: Ramiro Mark MD Phosphorus, Inorg. 2.6 mg/dL Normal 2.5-4.5 [facility] Comment on above: Performed By: #### P TT, CHELO, PRCAL, MG, BMP, PT ####[facility] [address] [place], [place] [phone] lab Director: Ramiro Mark MD Portable XR Chest AP single viewon 01-19-2024 [facility] RIS CONSOLIDATED [facility] CONSOLIDATED [facility] MHPN RIS CONSOLIDATED [facility] CONSOLIDATED [facility] Portable XR Chest AP single viewOrdered By: Sreedhar Mims on 01-19-2024 [facility] Work Phone: Portable XR Chest AP single viewOrdered By: Felix Adams on 01-19-2024 [facility] Work Phone: Procalcitoninon 01-19-2024 Interpretation and review of laboratory results Abnormal [facility] Procalcitonin [Mass/Vol] 0.15 ng/mL High 0.00 - 0.09 ng/mL [facility] Procalcitonin 0.15 ng/mL High 0.00-0.09 [facility] Comment on above: Result Comment: Susp [...] entered into the Change in Procalcitonin Calculator ([email or web address]) to determine the patient's Mortality Risk PrognosisIn healthy neonates, plasma Procalcitonin (PCT) concentrations increase gradually after , reaching peak values at about 24 hours of age then decrease to normal values below 0.5 ng/mL by 48-72 hours of age. Performed By: #### P TT, CHELO, PRCAL, MG, BMP, PT ####Search to Phone2222 [place], [place] [phone] Lab Director: Ramiro Mark MD Protein, CSFon 01-19-2024 Protein (CSF) [Mass/Vol] 89.1 mg/dL High 15.0 - 45.0 mg/dL [facility] [place] [facility] Protein, Total, [facility] Total Protein - CSF 89.1 mg/dL High 15.0-45.0 [facility] Comment on above: Performed By: #### C TP, CGLU, MEVP, CFVD, CFCNT ####[employer] [address] [place] [id number] Lab Director: Ramiro Mark MD#### AWNCSF, ALYMCT ####[facility] [address] [place] [address] Lab Director: Wil Swanson MD Protime-INRon 01-19-2024 INR Coag (PPP) [Relative time] 1.1 {INR} [employer] PT Coag (PPP) [Time] 13.8 s [employer] Resp Viral Panelon 4 Adenovirus Not detected Normal [facility] Comment on above: Performed By: #### R GAS TRUCK DRIVER ####[address] [phone] Director: MD Lakesha Moreno.parapertussis Not detected [facility] Comment on above: Performed By: #### R GAS TRUCK DRIVER ####[address] [phone] Director: Ramiro Mark MD Bordetella pertussis Not detected [facility] Comment on above: Performed By: #### R GAS TRUCK DRIVER ####[address] [phone] Director: Ramiro Mark MD Chlamyd.pneumoniae Not detected Normal [facility] Comment on above: Performed By: #### R GAS TRUCK DRIVER ####[address] [phone] Director: Ramiro Mark MD Coronavirus 229E Not detected Normal [facility] Comment on above: Performed By: #### R GAS TRUCK DRIVER ####[address] [phone] Director: Ramiro Mark MD Coronavirus HKU1 Not detected Normal [facility] Comment on above: Performed By: #### R GAS TRUCK DRIVER ####[address] [phone] Director: Ramiro Mark MD Coronavirus NL63 Not detected Normal [facility] Comment on above: Performed By: #### R GAS TRUCK DRIVER ####[address] [phone] Director: Ramiro Mark MD Coronavirus OC43 Not detected Normal [facility] Comment on above: Performed By: #### R GAS TRUCK DRIVER ####[address] [place] [address] Lab Director: Ramiro Mark MD Human Metapneumo Not detected Normal [facility] Comment on above: Performed By: #### R GAS TRUCK DRIVER ####[facility] [address] [place] [address] Lab Director: Ramiro Mark MD Influenza A Not detected Normal [facility] Comment on above: Performed By: #### R GAS TRUCK DRIVER ####[address] [address] Lab Director: Ramiro Mark MD Influenza B Not detected Normal [facility] Comment on above: Performed By: #### R GAS TRUCK DRIVER ####[address] [phone] Director: Ramiro Mark MD Mycoplas.pneumoniae Not detected Normal [facility] Comment on above: Result Comment: Perf ormed by multiplexed nucleic acid assay. Performed By: #### R GAS TRUCK DRIVER ####[address] [address] Lab Director: Ramiro Mark MD Parainfluenza 1 Not detected Normal [facility] Comment on above: Performed By: #### R GAS TRUCK DRIVER ####[address] [address] Lab Director: Ramiro Mark MD Parainfluenza 2 Not detected Normal [facility] Comment on above: Performed By: #### R GAS TRUCK DRIVER ####[place] [address] [place] [address] Lab Director: Ramiro Mark MD Parainfluenza 3 Not detected [facility] Comment on above: Performed By: #### R GAS TRUCK DRIVER ####[address] [address] Lab Director: Ramiro Mark MD Parainfluenza 4 Not detected Normal [facility] Comment on above: Performed By: #### R GAS TRUCK DRIVER ####[facility] [address] [place], [place] [phone] Director: Ramiro Mark MD Resp Syncytial Virus Not detected Normal [facility] Comment on above: Performed By: #### R GAS TRUCK DRIVER ####[address] [place] [place], [place] [phone] Director: Ramiro Mark MD Rhino/Enterovirus Not detected Normal [facility] Comment on above: Performed By: #### R GAS TRUCK DRIVER ####[address] [phone] Director: Ramiro Mark MD SARS-CoV-2 (COVID-19) RNA MEETA+probe Ql (Unsp spec) Not detected Normal [facility] Comment on above: Performed By: #### R GAS TRUCK DRIVER ####[address] [phone] Director: Ramiro Mark MD Source: .NASOPHARYNGEAL SWAB Normal [facility] Comment on above: Performed By: #### R GAS TRUCK DRIVER ####[address] [phone] Director: Ramiro Mark MD Respiratory Panel, Molecular , with COVID-19 (Restricted: peds pts or suitable admitted adults)on 01-19-2024 Adenovirus DNA MEETA+non-probe Ql (Nph) Not detected Not Detected [facility] B. parapertussis [id number] DNA MEETA+non-probe Ql (Nph) Not detected Not Detected [facility] B. pertussis DNA MEETA+probe Ql (Unsp spec) Not detected Not Detected [facility] C. pneumoniae DNA MEETA+non-probe Ql (Nph) Not detected Not Detected [facility] FLUAV RNA MEETA+non-probe Ql (Nph) Not detected Not Detected [facility] FLUBV RNA MEETA+non-probe Ql (Nph) Not detected Not Detected [facility] HCoV 229E RNA MEETA+non-probe Ql (Nph) Not detected Not Detected [facility] HCoV HKU1 RNA MEETA+non-probe Ql (Nph) Not detected Not Detected [facility] HCoV NL63 RNA MEETA+non-probe Ql (Nph) Not detected Not Detected [facility] HCoV OC43 RNA MEETA+non-probe Ql (Nph) Not detected Not Detected [facility] hMPV RNA MEETA+non-probe Ql (Nph) Not detected Not Detected [facility] M. pneumoniae DNA MEETA+non-probe Ql (Nph) Not detected Not Detected [facility] Parainfluenza virus 1 RNA MEETA+non-probe Ql (Nph) Not detected Not Detected [facility] Parainfluenza virus 2 RNA MEETA+non-probe Ql (Nph) Not detected Not Detected [facility] Parainfluenza virus 3 RNA MEETA+non-probe Ql (Nph) Not detected Not Detected [facility] Parainfluenza virus 4 RNA MEETA+non-probe Ql (Nph) Not detected Not Detected [facility] Rhinovirus+Enterovirus RNA MEETA+non-probe Ql (Nph) Not detected Not Detected [facility] RSV RNA MEETA+non-probe Ql (Nph) Not detected Not Detected [facility] SARS-CoV-2 (COVID-19) RNA MEETA+non-probe Ql (Nph) Not detected Not Detected [facility] Specimen Description .NASOPHARYNGEAL SWAB [facility] Sedimentation Rateon 024 ESR Photometric method (Bld) [Velocity] 28 High [facility] Interpretation and review of laboratory results Abnormal [facility] Sedimentation Rate 28 mm/Hr High 0-20 [facility] Comment on above: Result Comment: ADDE D ON Performed By: #### C RP, ALCB, SED, GLYHGB, TROPI, MARCIO, CK, CDP, BH, BMPX ####[facility] [address] [place], [place] [phone] Lab Director: Ramiro Mark MD Surgical Pathology Reporton 01-19-2024 Surgical Pathology Report Normal [facility] TSH w/reflex to FT4on 2023 Thyroid Stim. Horm. 0.58 uIU/mL Normal 0.27-4.20 [facility] Comment on above: Performed By: #### T SHX, JHON ####[facility] [address] [place], [place] 1858308 Lab Director: Ramiro Mark MD TSH with Reflexon 01-19-2024 TSH Qn 0.58 m[IU]/L [facility] Troponinon 01-19-2024 Troponin I.cardiac High sensitivity method [Mass/Vol] 39 ng/L High 0 - 22 ng/L [facility] Troponin, High Sens 39 ng/L High 0-22 [facility] Comment on above: Result Comment: High Sensitivity Troponin values cannot be compared with other Troponin methodologies. Performed By: #### C RP, ALCB, SED, GLYHGB, TROPI, MARCIO, CK, CDP, BH, BMPX ####[facility] [address] [place], [place] [phone] lab Director: Ramiro Mark MD Interpretation and review of laboratory results Abnormal [facility] Troponin I.cardiac High sensitivity method [Mass/Vol] 45 ng/L High 0 - 22 ng/L [facility] Comment on above: High Sensitivity Tro ponin values cannot be compared with other Troponin methodologies. [facility] Troponin, High Sens 45 ng/L High 0-22 [facility] Comment on above: Result Comment: High Sensitivity Troponin values cannot be compared with other Troponin methodologies. Performed By: #### B H #### [facility] [address] [place] [address] Custom Clothier: Ramiro Santillan MD Urinalysis w/ Microon 2023 Bacteria None Normal NONE [facility] Comment on above: Performed By: #### U AMIC ####[address] [phone] Director: Ramiro Mark MD Bilirubin, SemiQt,Ur Negative Normal NEG [facility] Comment on above: Performed By: #### U AMIC ####[address] [phone] Director: Ramiro Mark MD Blood, Urine SMALL Abnormal NEG [facility] Comment on above: Performed By: #### U AMIC ####[address] [phone] Director: Ramiro Mark MD Casts 2 TO 5 HYALINE Normal 0-8 [facility] Comment on above: Result Comment: Refe rence range defined for non-centrifuged specimen. Performed By: #### U AMIC ####[address] [phone] Director: Ramiro Mark MD Clarity (U) Clear Normal CLEAR [facility] Comment on above: Performed By: #### U AMIC ####[address] [phone] Director: Ramiro Mark MD Color (U) Yellow Normal YEL [facility] Comment on above: Performed By: #### U AMIC ####[address] [phone] Director: Ramiro Mark MD Epithelial cells LM Ql (Urine sed) 2 TO 5 Normal 0-5 [facility] Comment on above: Performed By: #### U AMIC ####[address] [phone] Director: Ramiro Mark MD Glucose Ql (U) 3+ mg/dL Abnormal NEG [facility] Comment on above: Performed By: #### U AMIC ####[facility] [address] [place], [place] [phone] Director: Ramiro Mark MD Ketones Ql (U) MODERATE Abnormal NEG [facility] Comment on above: Performed By: #### U AMIC ####[address] [phone] Director: Ramiro Mark MD Leukocyte esterase Test strip Ql (U) Negative Normal NEG [facility] Comment on above: Performed By: #### U AMIC ####[address] [address])[phone] Director: Ramiro Mark MD Nitrite,Ur Negative Normal NEG [facility] Comment on above: Performed By: #### U AMIC ####[address] [address])[phone] Director: Ramiro Mark MD PH,Ur 5.5 Normal 5.0-8.0 [facility] Comment on above: Performed By: #### U AMIC ####[address] [phone] Director: Ramiro Mark MD Protein Ql (U) 3+ mg/dL Abnormal NEG [facility] Comment on above: Performed By: #### U AMIC ####[address] [id number])[phone] Director: Ramiro Mark MD Spec. [place],Ur 1.033 High 1.005-1.030 [facility] Comment on above: Performed By: #### U AMIC ####[address] [phone] Director: Ramiro Mark MD Urine RBC's 5 TO 10 Normal 0-4 [facility] Comment on above: Result Comment: Refe rence range defined for non-centrifuged specimen. Performed By: #### U AMIC ####[facility] [address] [place] [address] Lab Director: Ramiro Mark MD Urine WBC's 2 TO 5 Normal 0-5 [facility] Comment on above: Performed By: #### U AMIC ####[facility] [address] [place], [place] 2080[address] lab Director: Ramiro Mark MD Urobilinogen,Ur Normal Normal 0.0-1.0 [facility] Comment on above: Performed By: #### U AMIC ####[facility] [address] [place], [place] 1367[address] lab Director: Ramiro Mark MD Urinalysis with Microscopico n 01-19-2024 Bacteria LM Ql (Urine sed) None None [facility] Bilirubin Ql (U) Negative NEGATIVE [facility] [employer] Casts LM.LPF (Urine sed) [#/Area] 2 TO 5 HYALINE Reference range defined for non-centrifuged specimen. [employer] [facility] Clarity (U) Clear Clear [facility] Color (U) Yellow Yellow [facility] Epithelial cells LM.HPF (Urine sed) [#/Area] 2 TO 5 [facility] Glucose Test strip (U) [Mass/Vol] 3+ Abnormal NEGATIVE mg/dL [facility] Hemoglobin Auto test strip Ql (U) SMALL Abnormal NEGATIVE [facility] Interpretation and review of laboratory results Abnormal [facility] Ketones (U) [Mass/Vol] MODERATE Abnormal NEGAT RAJAN mg/dL [facility] Leukocyte esterase Test strip Ql (U) Negative NEGATIVE [facility] Nitrite Ql (U) Negative NEGATIVE [facility] pH (U) 5.5 [pH] 5.0 - 8.0 [facility] Protein (U) [Mass/Vol] 3+ Abnormal NEGAT RAJAN mg/dL [facility] RBC LM.HPF (Urine sed) [#/Area] 5 TO 10 [facility] Specific gravity (U) [Rel density] 1.033 High 1.005 - 1.030 [facility] Urobilinogen Qn (U) Normal 0.0 - 1. 0 EU/dL [facility] WBC LM.HPF (Urine sed) [#/Area] 2 TO 5 [facility] XR ABDOMEN FOR NG/OG/NE TUBE PLACEMENTon 01-19-2024 XR ABDOMEN FOR NG/OG/NE TUBE PLACEMENT Normal [facility] MHPN RIS CONSOLIDATED MHPN RIS CONSOLIDATED [facility] XR CHEST PORTABLEon 01-19-20 XR CHEST PORTABLE Normal [facility] XR CHEST PORTABLE Normal [facility] BMPon 01-18-2024 Anion gap [Moles/Vol] 14 mmol/L 9 - 17 mmol/L [facility] Calcium [Mass/Vol] 9.3 mg/dL 8.6 - 10. 4 mg/dL [facility] Chloride [Moles/Vol] 95 mmol/L Low 98 - 10 7 mmol/L [facility] CO2 [Moles/Vol] 22 mmol/L 20 - 31 mmol/L [facility] Creatinine [Mass/Vol] 1.7 mg/dL High 0.7 - 1.2 mg/dL [facility] GFR/1.73 sq M.predicted MDRD (S/P/Bld) [Vol rate/Area] 49 mL/min/{1.73_m2} Low - PINF [facility] Comment on above: These results are [...] 242 mg/dL High 70 - 99 mg/dL [facility] Potassium [Moles/Vol] 4.7 mmol/L 3.7 - 5.3 mmol/L [facility] Sodium [Moles/Vol] 131 mmol/L Low 135 - 144 mmol/L [facility] Urea nitrogen [Mass/Vol] 44 mg/dL High 6 - 20 mg/dL [facility] Urea nitrogen/Creatinine [Mass ratio] 26 mg/mg High 9 - 20 [facility] Basic Metabolic Profon 01-17 Anion gap [Moles/Vol] 14 mmol/L Normal 9-17 [facility] Comment on above: Performed By: #### L ACTIC #### [facility] [address] [place], [place] [phone] Custom Clothier: Ramiro Santillan MD BUN/CRE Ratio 26 High 9-20 [facility] Comment on above: Performed By: #### L ACTIC #### [facility] [address] [place], [place] [phone] Custom Clothier: Ramiro Santillan MD Calcium [Mass/Vol] 9.3 mg/dL Normal 8.6-10.4 [facility] Comment on above: Performed By: #### L ACTIC #### [facility] [address] [place], [place] [phone] Custom Clothier: Ramiro Santillan MD Chloride [Moles/Vol] 95 mmol/L Low 98-107 [facility] Comment on above: Performed By: #### L ACTIC #### [facility] [address] [place], [place] [phone] Custom Clothier: Ramiro Santillan MD CO2 [Moles/Vol] 22 mmol/L Normal 20-31 [facility] Comment on above: Performed By: #### L ACTIC #### [facility] [address] [place] [address] Custom Clothier: Ramiro Santillan MD Creatinine [Mass/Vol] 1.7 mg/dL High 0.7-1.2 [facility] Comment on above: Performed By: #### L ACTIC #### [facility] [address] [place] [address] Custom Clothier: Ramiro Santillan MD GFR/1.73 sq M.predicted among non-blacks MDRD (S/P/Bld) [Vol rate/Area] 49 mL/min/{1.73_m2} Low >60 [facility] Comment on above: Result Comment: These [...] secretion. Performed By: #### L ACTIC #### [facility] [address] [place] [address] [place] [address] Custom Clothier: Ramiro Santillan MD Glucose [Mass/Vol] 242 mg/dL High 70-99 [facility] Comment on above: Performed By: #### L ACTIC #### [facility] [address] [place] [address] [address] [place], [place] [phone] Custom Clothier: Ramiro Santillan MD Potassium [Moles/Vol] 4.7 mmol/L Normal 3.7-5.3 [facility] Comment on above: Performed By: #### L ACTIC #### [facility] [address] [place] [address] [address] [place], [place] [phone] Custom Clothier: Ramiro Santillan MD Sodium [Moles/Vol] 131 mmol/L Low 135-144 [facility] Comment on above: Performed By: #### L ACTIC #### [facility] [address] [place] [address] [place] [address] Custom Clothier: Ramiro Santillan MD Urea nitrogen [Mass/Vol] 44 mg/dL High 6-20 [facility] Comment on above: Performed By: #### L ACTIC #### [facility] [address] [place] [address] [place] [address] Custom Clothier: Ramiro Santillan MD CBC with Auto Differentialon 01-18-2024 Basophils (Bld) [#/Vol] 0.06 10*3/uL [facility] Basophils/100 WBC (Bld) 1 % 0 - 2 % [facility] Eosinophils (Bld) [#/Vol] 0.17 10*3/uL [facility] Eosinophils/100 WBC (Bld) 2 % 1 - 4 % [facility] Erythrocyte distribution width (RBC) [Ratio] 13.4 % 11.8 - 14.4 % [facility] Hematocrit (Bld) [Volume fraction] 36.5 % Low 40.7 - 50.3 % [facility] Hemoglobin (Bld) [Mass/Vol] 13.0 g/dL 13.0 - 17.0 g/dL [facility] Immature granulocytes (Bld) [#/Vol] 0.03 10*3/uL [facility] Immature granulocytes/100 WBC (Bld) 0 % 0 [facility] Interpretation and review of laboratory results Abnormal [facility] Lymphocytes/100 WBC (Bld) 23 % Low 24 - 43 % [facility] Lymphocytes/100 WBC (Bld) 1.95 % [facility] MCH (RBC) [Entitic mass] 29.6 pg 25.2 - 33.5 pg [facility] MCHC (RBC) [Mass/Vol] 35.6 g/dL High 28.4 - 34.8 g/dL [facility] MCV (RBC) [Entitic vol] 83.1 fL 82.6 - 102.9 fL [facility] Monocytes/100 WBC (Bld) 6 % 3 - 12 % [facility] Monocytes/100 WBC (Bld) 0.54 % [facility] Neutrophils/100 WBC (Bld) 68 % High 36 - 65 % [facility] Nucleated RBC/100 WBC (Bld) [Ratio] 0.0 % 0.0 per 100 WBC [facility] Platelet mean volume (Bld) [Entitic vol] 10.4 fL 8.1 - 13.5 fL [facility] Platelets (Bld) [#/Vol] 212 10*3/uL [facility] RBC (Bld) [#/Vol] 4.39 10*6/uL 4.21 - 5.7 7 m/uL [facility] Segmented neutrophils/100 WBC (Bld) 5.80 % [facility] WBC other (Bld) [#/Vol] 8.6 [facility] CBC with Diffon 01-18-2024 Abs. Basophil 0.06 k/uL Normal 0.00-0.20 [facility] Comment on above: Performed By: #### L ACTIC #### [facility] [address] [place], [place] [id number] Custom Clothier: Ramiro Santillan MD Abs.Imm.Granulocyte 0.03 k/uL Normal 0.00-0.30 [facility] Comment on above: Performed By: #### L ACTIC #### [address] [place] [id number] Custom Clothier: Ramiro Santillan MD Abs.Neutrophil (Seg) 5.80 k/uL Normal 1.50-8.10 [facility] Comment on above: Performed By: #### L ACTIC #### [address] [place], [place] [id number] Custom Clothier: Ramiro Santillan MD Basophils/100 WBC (Bld) 1 % Normal 0-2 [facility] Comment on above: Performed By: #### L ACTIC #### [facility] [address] [place] [address] Dr. [place], [facility]83 Custom Clothier: Ramiro Santillan MD Eosinophils (Bld) [#/Vol] 0.17 10*3/uL Normal 0.00-0.44 [facility] Comment on above: Performed By: #### L ACTIC #### [facility] [address] [place] [address] [place] [address] Custom Clothier: Ramiro Santillan MD Eosinophils/100 WBC (Bld) 2 % Normal 1-4 [facility] Comment on above: Performed By: #### L ACTIC #### [facility] [address] [place], [place] [id number] Custom Clothier: Ramiro Santillan MD Erythrocyte distribution width (RBC) [Ratio] 13.4 % Normal 11.8-14.4 [facility] Comment on above: Performed By: #### L ACTIC #### [facility] [address] [place], [place] [id number] Custom Clothier: Ramiro Santillan MD Hematocrit (Bld) [Volume fraction] 36.5 % Low 40.7-50.3 [facility] Comment on above: Performed By: #### L ACTIC #### [address] [place], [place] [id number] Custom Clothier: Ramiro Santillan MD Hemoglobin (Bld) [Mass/Vol] 13.0 g/dL Normal 13.0-17.0 [facility] Comment on above: Performed By: #### L ACTIC #### [facility] [address] [place] [address] Dr. [place], [place] [id number] Custom Clothier: Ramiro Santillan MD Immature granulocytes/100 WBC (Bld) 0 % Normal 0 [facility] Comment on above: Performed By: #### L ACTIC #### [facility] [address] [place] [address] [address]. [place], [place] 1990683 Custom Clothier: Ramiro Santillan MD Lymphocytes (Bld) [#/Vol] 1.95 10*3/uL Normal 1.10-3.70 [facility] Comment on above: Performed By: #### L ACTIC #### [facility] [address] [place] [address] Dr. [place], [place] [id number] Custom Clothier: Ramiro Santillan MD Lymphocytes/100 WBC (Bld) 23 % Low 24-43 [facility] Comment on above: Performed By: #### L ACTIC #### [facility] [address] [place] [id number] Custom Clothier: Ramiro Santillan MD MCH (RBC) [Entitic mass] 29.6 pg Normal 25.2-33.5 [facility] Comment on above: Performed By: #### L ACTIC #### [facility] [address] [place] [address] Dr. [place], [place] [id number] Custom Clothier: Ramiro Santillan MD MCHC (RBC) [Mass/Vol] 35.6 g/dL High 28.4-34.8 [facility] Comment on above: Performed By: #### L ACTIC #### [address] [place] [id number] Custom Clothier: Ramiro Santillan MD MCV (RBC) [Entitic vol] 83.1 fL Normal 82.6-102.9 [facility] Comment on above: Performed By: #### L ACTIC #### [facility] [address] [place] [address] Dr. [place], [facility]83 Custom Clothier: Ramiro Santillan MD Monocytes (Bld) [#/Vol] 0.54 10*3/uL Normal 0.10-1.20 [facility] Comment on above: Performed By: #### L ACTIC #### [facility] [address] [place] [address] Dr. [place], [place] [id number] Custom Clothier: Ramiro Santillan MD Monocytes/100 WBC (Bld) 6 % Normal 3-12 [facility] Comment on above: Performed By: #### L ACTIC #### [facility] [address] [place] [address] Dr. [place], [facility]83 Custom Clothier: Ramiro Santillan MD Neutrophil (Seg) 68 % High 36-65 [facility] Comment on above: Performed By: #### L ACTIC #### [facility] [address] [place] [address] Dr. [place], [place] [id number] Custom Clothier: Ramiro Santillan MD NRBC Automated 0.0 per 100 WBC Normal 0.0 [facility] Comment on above: Performed By: #### L ACTIC #### [facility] [address] [place], [place] [id number] Custom Clothier: Ramiro Santillan MD Platelet mean volume (Bld) [Entitic vol] 10.4 fL Normal 8.1-13.5 [facility] Comment on above: Performed By: #### L ACTIC #### [facility] [address] [place], [facility]83 Custom Clothier: Ramiro Santillan MD Platelets (Bld) [#/Vol] 212 10*3/uL Normal 138-453 [facility] Comment on above: Performed By: #### L ACTIC #### [facility] [address] [place], [place] [id number] Custom Clothier: Ramiro Santillan MD RBC (Bld) [#/Vol] 4.39 10*6/uL Normal 4.21-5.77 [facility] Comment on above: Performed By: #### L ACTIC #### [address] [place], [place] [id number] Custom Clothier: Ramiro Santillan MD WBC (Bld) [#/Vol] 8.6 10*3/uL Normal 3.5-11.3 [facility] Comment on above: Performed By: #### L ACTIC #### [address] [place], [facility]83 Custom Clothier: Ramiro Santillan MD CTA HEAD NECK W [...] Daniel Ramos MD 01/18/24 Final result Normal [facility] CTA Head vessels and Neck ve ssels W contrast Karri 01-18-2024 1. No evidence of arterial stenosis or occlusion in the head or neck. 2. No acute intracranial abnormality. 3. Sphenoid sinus disease. [facility] RIS CONSOLIDATED EXAMINATION: CTA OF THE [...] fluid collection. The winkler-white differentiation is maintained. [facility] Daniel Trent MD - 01/18/2024 EXAMINATION: CTA [...] acute intracranial abnormality. 3. Sphenoid sinus disease. [facility] Radiology Study observation (narrative) [facility] CTA Head vessels and Neck ve ssels W contrast IVOrdered By: Daniel Ramos on 01-18-2024 [facility] Work Phone: Glucose, Whole Bloodon 01-17 Glucose [Mass/Vol] 232 mg/dL High 74 - 100 mg/dL [facility] Interpretation and review of laboratory results Abnormal [facility] Glucose [Mass/Vol] 232 mg/dL High 74-100 [facility] Glucose [Mass/Vol] 230 mg/dL High 74 - 100 mg/dL [facility] Interpretation and review of laboratory results Abnormal [facility] Glucose [Mass/Vol] 230 mg/dL High 74-100 [facility] Hepatic Function Panelon Albumin [Mass/Vol] 3.9 g/dL 3.5 - 5.2 g/dL [facility] Albumin/Globulin [Mass ratio] 1.3 {ratio} 1.0 - 2.5 [facility] ALP [Catalytic activity/Vol] 105 U/L 40 - 129 U/L [facility] ALT [Catalytic activity/Vol] 18 U/L 5 - 41 U/L [facility] AST [Catalytic activity/Vol] 16 U/L NINF - 40 U/L [facility] Bilirubin [Mass/Vol] 0.2 mg/dL Low 0.3 - 1 .2 mg/dL [facility] Bilirubin.direct [Mass/Vol] mg/dL NINF - 0.3 mg/dL [facility] Bilirubin.indirect [Mass/Vol] Can not be calculated 0.0 - 1.0 mg/dL [facility] Protein [Mass/Vol] 7.0 g/dL 6.4 - 8.3 g/dL [facility] Lactic Acidon 01-18-2024 Interpretation and review of laboratory results Abnormal [facility] Lactate (BldV) [Moles/Vol] 2.8 mmol/L High 0.5 - 2.2 mmol/L [facility] Lactate [Moles/Vol] 2.8 mmol/L High 0.5-2.2 [facility] Comment on above: Performed By: #### L ACTIC #### [facility] [address] [place] [address] [place] [address] Custom Clothier: Ramiro Santillan MD Liver Profileon 01-18-2024 Albumin [Mass/Vol] 3.9 g/dL Normal 3.5-5.2 [facility] Comment on above: Performed By: #### L ACTIC #### [facility] [address] [place], [place] [id number] Custom Clothier: Ramiro Santillan MD Albumin/Glob Ratio 1.3 Normal 1.0-2.5 [facility] Comment on above: Performed By: #### L ACTIC #### [facility] [address] [place] [address] Custom Clothier: Ramiro Santillan MD Alkaline Phos 105 U/L Normal 40-129 [facility] Comment on above: Performed By: #### L ACTIC #### [facility] [address] [place], [place] [id number] Custom Clothier: Ramiro Santillan MD ALT [Catalytic activity/Vol] 18 U/L Normal 5-41 [facility] Comment on above: Performed By: #### L ACTIC #### [facility] [address] [place], [place] [id number] Custom Clothier: Ramiro Santillan MD AST [Catalytic activity/Vol] 16 U/L Normal <40 [facility] Comment on above: Performed By: #### L ACTIC #### [facility] [address] [place], [place] [id number] Custom Clothier: Ramiro Santillan MD Bilirubin [Mass/Vol] 0.2 mg/dL Low 0.3-1.2 [facility] Comment on above: Performed By: #### L ACTIC #### [facility] [address] [place] [address] Dr. [place], [place] [id number] Custom Clothier: Ramiro Santillan MD Bilirubin, Indirect Can not be calculated Normal 0.0-1 .0 [facility] Comment on above: Performed By: #### L ACTIC #### [facility] [address] [place], [place] [id number] Custom Clothier: Ramiro Santillan MD Bilirubin.indirect [Mass/Vol] mg/dL Normal <0.3 [facility] Comment on above: Performed By: #### L ACTIC #### [facility] [address] [place], [place] [id number] Custom Clothier: Ramiro Santillan MD Protein [Mass/Vol] 7.0 g/dL Normal 6.4-8.3 [facility] Comment on above: Performed By: #### L ACTIC #### [facility] [address] [place], [place] [id number] Custom Clothier: Ramiro Santillan MD Magnesiumon 01-18-2024 Magnesium [Mass/Vol] 2.2 mg/dL 1.6 - 2 .6 mg/dL [facility] Magnesium [Mass/Vol] 2.2 mg/dL Normal 1.6-2.6 [facility] Comment on above: Performed By: #### L ACTIC #### [facility] [address] [place] [address] Custom Clothier: Ramiro Santillan MD No Panel Informationon 01-17 Interpretation and review of laboratory results Abnormal [facility] Troponinon 01-18-2024 Interpretation and review of laboratory results Abnormal [facility] Troponin I.cardiac High sensitivity method [Mass/Vol] 48 ng/L High 0 - 22 ng/L [facility] Comment on above: High Sensitivity Tro ponin values cannot be compared with other Troponin methodologies. [facility] Troponin, High Sens 48 ng/L High 0-22 [facility] Comment on above: Result Comment: High Sensitivity Troponin values cannot be compared with other Troponin methodologies. Performed By: #### L ACTIC #### [facility] [address] [place] [address] Custom Clothier: Ramiro Santillan MD HSV 1,2 DNA PCRon 09-26-2023 HSV 1 DNA Negative [facility] Comment on above: Result Comment: Refe rence range: Negative Performed By: #### L HSV #### Testing performed at [facility] HSV 2 DNA Negative [facility] Comment on above: Result Comment: Refe rence range: Negative (NOTE) This test was developed and its performance characteristics determined by [facility]. It has not been cleared or approved by the U.[place]. Food and Drug Administration. The FDA has determined that such clearance or approval is not necessary. This test is used for clinical purposes. It should not be regarded as investigational or research. PERFORMED AT [facility] Performed By: #### L HSV #### Testing performed at [facility] CBCon 09-24-2023 ABSOLUTE BAS 0.0 10*3/uL Normal 0.0-0.2 [facility] ABSOLUTE EOS 0.1 10*3/uL Normal 0.0-0.7 [facility] ABSOLUTE NEUTROPHIL COUNT 12.9 10*3/uL High 1.4-6.5 [facility] Basophils/100 WBC (Bld) 0.1 % Normal 0.0-2.0 [facility] DTYPE AUTO DIFF Normal [facility] Eosinophils/100 WBC (Bld) 0.5 % Normal 0.0-11.0 [facility] Lymphocytes (Bld) [#/Vol] 1.0 10*3/uL Low 1.2-3.4 [facility] Lymphocytes/100 WBC (Bld) 6.3 % Low 20.0-55.0 [facility] Monocytes (Bld) [#/Vol] 1.2 10*3/uL High 0.0-0.7 [facility] Monocytes/100 WBC (Bld) 7.9 % Normal 0.0-10.0 [facility] Neutrophils/100 WBC (Bld) 85.2 % High 37.0-75.0 [facility] Erythrocyte distribution width (RBC) [Ratio] 14.2 % Normal 11.5-14.5 [facility] Hematocrit (Bld) [Volume fraction] 34.1 % Low 42.0-52.0 [facility] Hemoglobin (Bld) [Mass/Vol] 11.4 g/dL Low 14.0-18.0 [facility] MCH (RBC) [Entitic mass] 29.0 pg Normal 26.0-35.0 [facility] MCHC (RBC) [Mass/Vol] 33.4 g/dL Normal 27.0-37.0 [facility] MCV (RBC) [Entitic vol] 86.7 fL Normal 80.0-100.0 [facility] Platelet mean volume (Bld) [Entitic vol] 8.8 fL Normal 7.4-11.0 [facility] Platelets (Bld) [#/Vol] 161 10*3/uL Normal 130-400 [facility] RBC (Bld) [#/Vol] 3.94 10*6/uL Low 4.0-6.1 [facility] WBC (Bld) [#/Vol] 15.2 10*3/uL High 3.6-11.0 [facility] CBC, EDIF, PLATELETon 2022 ABSOLUTE BASOPHIL COUNT 0.0 10*3/uL 0.0 - 0.2 10*3/uL [facility] Basophils/100 WBC (Bld) 0.1 % 0.0 - 2.0 % [facility] Differential cell count method Nom (Bld) AUTO DIFF % [facility] Eosinophils (Bld) [#/Vol] 0.1 10*3/uL 0.0 - 0.7 10*3/uL [facility] Eosinophils/100 WBC (Bld) 0.5 % 0.0 - 11.0 % [facility] Erythrocyte distribution width (RBC) [Ratio] 14.2 % 11.5 - 14.5 % [facility] Hematocrit (Bld) [Volume fraction] 34.1 % Low 42.0 - 52.0 % [facility] Hemoglobin (Bld) [Mass/Vol] 11.4 g/dL Low [facility] Interpretation and review of laboratory results Abnormal [facility] Lymphocytes (Bld) [#/Vol] 1.0 10*3/uL Low 1.2 - 3.4 10*3/uL [facility] Lymphocytes/100 WBC (Bld) 6.3 % Low 20.0 - 55.0 % [facility] MCH (RBC) [Entitic mass] 29.0 pg 26.0 - 35.0 PG [facility] MCHC (RBC) [Mass/Vol] 33.4 g/dL [facility] MCV (RBC) [Entitic vol] 86.7 fL [facility] Monocytes (Bld) [#/Vol] 1.2 10*3/uL High 0.0 - 0.7 10*3/uL [facility] Monocytes/100 WBC (Bld) 7.9 % 0.0 - 10.0 % [facility] Neutrophils (Bld) [#/Vol] 12.9 10*3/uL High 1.4 - 6.5 10*3/uL [facility] Neutrophils/100 WBC (Bld) 85.2 % High 37.0 - 75.0 % [facility] Platelet mean volume (Bld) [Entitic vol] 8.8 fL [facility] Platelets (Bld) [#/Vol] 161 10*3/uL 130 - 400 10*3/uL [facility] RBC (Bld) [#/Vol] 3.94 10*6/uL Low 4.0 - 6.1 10*6/uL [facility] WBC (Bld) [#/Vol] 15.2 10*3/uL High 3.6 - 11.0 10*3/uL [facility] CKon 09-24-2023 CK [Catalytic activity/Vol] 631 U/L High [facility] CPKon 09-24-2023 CPK 631 IU/L High 55-170 [facility] GLUCOSE (POC DEVICE)on 09-24 GLUCOSE, POINT OF CARE 203 High [facility] Interpretation and review of laboratory results Abnormal [facility] Operator [id number] [facility] GLUCOSE, POINT OF CARE 183 High [facility] Interpretation and review of laboratory results Abnormal [facility] Operator [id number] [facility] GLUCOSE, POINT OF CARE [address] [facility] Interpretation and review of laboratory results Abnormal [facility] Operator [id number] [facility] GLUCOSE, POINT OF CARE 168 High [facility] Interpretation and review of laboratory results Abnormal [facility] Operator [id number] [facility] MAGNESIUMon 09-24-2023 Magnesium [Mass/Vol] 2.0 mg/dL Normal 1.6-2.3 [facility] Magnesium [Mass/Vol] 2.0 mg/dL [facility] No Panel Informationon 09-24 Interpretation and review of laboratory results Abnormal [facility] POCT GLUCOSEon 09-24-2023 Glucose [Mass/Vol] 203 mg/dL High 70-100 [facility] SENIOR LEAD PROJECT MANAGER [id number] Normal [facility] Glucose [Mass/Vol] 183 mg/dL High 70-100 [facility] SENIOR LEAD PROJECT MANAGER [id number] Normal [facility] Glucose [Mass/Vol] 109 mg/dL High 70-100 [facility] SENIOR LEAD PROJECT MANAGER [id number] Normal [facility] Glucose [Mass/Vol] 168 mg/dL High 70-100 [facility] SENIOR LEAD PROJECT MANAGER [id number] Normal [facility] RENAL FUNCTION PANELon 09-24 Albumin [Mass/Vol] 3.2 G/dl Low 3.5 - 5.0 G/dl [facility] Calcium [Mass/Vol] 8.0 mg/dL Low [facility] Chloride [Moles/Vol] 111 mmol/L High [facility] Comment on above: Please note: Triglyc eride levels of 600mg/dL or higher may positively bias chloride results by approximately 2.1 mmol CO2 [Moles/Vol] 24 mmol/L [facility] Creatinine [Mass/Vol] 1.10 mg/dL [facility] GFR COMMENT Average GFR for 40-4 9 years old = 99. [facility] Comment on above: Chronic Kidney disea se, GFR = <60. Kidney failure, GFR = <15. The GFR estimate is not adjusted for extreme body surface area or acute process, nor has it been validated for women or ethnic groups other than and . GFR/1.73 sq M.predicted among blacks MDRD (S/P/Bld) [Vol rate/Area] 92 mL/min/{1.73_m2} ml/min/1.73s q.m [facility] GFR/1.73 sq M.predicted among non-blacks MDRD (S/P/Bld) [Vol rate/Area] 76 mL/min/{1.73_m2} ml/min/1.73s q.m [facility] Glucose post fast [Mass/Vol] 106 mg/dL High [facility] Comment on above: NORMAL <100 mg/dL PREDIABETES 101-126 mg/dL DIABETES 126 mg/dL or higher Phosphate [Mass/Vol] 2.9 mg/dL [facility] Potassium [Moles/Vol] 3.8 mmol/L [facility] Sodium [Moles/Vol] 138 mmol/L [facility] Urea nitrogen [Mass/Vol] 17 mg/dL [facility] RENAL PANEL,FASTINGon 2022 ALBUMIN 3.2 G/dl Low 3.5-5.0 [facility] Calcium [Mass/Vol] 8.0 mg/dL Low 8.4-10.2 [facility] Chloride [Moles/Vol] 111 mmol/L High 98-107 [facility] Comment on above: Result Comment: Juana spencer note: Triglyceride levels of 600mg/dL or higher may positively bias chloride results by approximately 2.1 mmol CO2 [Moles/Vol] 24 mmol/L Normal 22-30 [facility] Creatinine [Mass/Vol] 1.10 mg/dL Normal 0.7-1.2 [facility] EST. GFR, 92 ml/min/1.73sq.m Normal [facility] EST. GFR,Non 76 ml/min/1.73sq.m Normal [facility] GFR Information Average GFR for 40-4 9 years old = 99. Normal [facility] Comment on above: Result Comment: Machine Stoppage Frequency Checker alfreda Kidney disease, GFR = <60. Kidney failure, GFR = <15. The GFR estimate is not adjusted for extreme body surface area or acute process, nor has it been validated for women or ethnic groups other than and . Glucose [Mass/Vol] 106 mg/dL High 70-100 [facility] Comment on above: Result Comment: NORMAL <100 mg/dL PREDIABETES 101-126 mg/dL DIABETES 126 mg/dL or higher PHOSPHOROUS 2.9 MG/DL Normal 2.5-4.5 [facility] Potassium [Moles/Vol] 3.8 mmol/L Normal 3.5-5.1 [facility] Sodium [Moles/Vol] 138 mmol/L Normal 137-145 [facility] Urea nitrogen [Mass/Vol] 17 mg/dL Normal 7-20 [facility] B12 & FOLATEon 09-23-2023 Cobalamin (Vitamin B12) [Mass/Vol] 383 pg/mL 239 - 931 PG/ML [facility] Folate [Mass/Vol] 6.4 ng/mL [facility] B12 FOLATEon 09-23-2023 Cobalamin (Vitamin B12) [Mass/Vol] 383 pg/mL Normal 239-931 [facility] FOLATE 6.4 NG/ML Normal 2.56-20.0 [facility] CBCon 09-23-2023 ABSOLUTE BAS 0.0 10*3/uL Normal 0.0-0.2 [facility] ABSOLUTE EOS 0.0 10*3/uL Normal 0.0-0.7 [facility] ABSOLUTE NEUTROPHIL COUNT 12.1 10*3/uL High 1.4-6.5 [facility] Basophils/100 WBC (Bld) 0.1 % Normal 0.0-2.0 [facility] DTYPE AUTO DIFF Normal [facility] Eosinophils/100 WBC (Bld) 0.1 % Normal 0.0-11.0 [facility] Lymphocytes (Bld) [#/Vol] 0.8 10*3/uL Low 1.2-3.4 [facility] Lymphocytes/100 WBC (Bld) 6.0 % Low 20.0-55.0 [facility] Monocytes (Bld) [#/Vol] 1.1 10*3/uL High 0.0-0.7 [facility] Monocytes/100 WBC (Bld) 7.6 % Normal 0.0-10.0 [facility] Neutrophils/100 WBC (Bld) 86.2 % High 37.0-75.0 [facility] Erythrocyte distribution width (RBC) [Ratio] 13.9 % Normal 11.5-14.5 [facility] Hematocrit (Bld) [Volume fraction] 34.7 % Low 42.0-52.0 [facility] Hemoglobin (Bld) [Mass/Vol] 11.6 g/dL Low 14.0-18.0 [facility] MCH (RBC) [Entitic mass] 28.9 pg Normal 26.0-35.0 [facility] MCHC (RBC) [Mass/Vol] 33.4 g/dL Normal 27.0-37.0 [facility] MCV (RBC) [Entitic vol] 86.5 fL Normal 80.0-100.0 [facility] Platelet mean volume (Bld) [Entitic vol] 8.5 fL Normal 7.4-11.0 [facility] Platelets (Bld) [#/Vol] 167 10*3/uL Normal 130-400 [facility] RBC (Bld) [#/Vol] 4.01 10*6/uL Normal 4.0-6.1 [facility] WBC (Bld) [#/Vol] 14.1 10*3/uL High 3.6-11.0 [facility] CBC, EDIF, PLATELETon 2022 ABSOLUTE BASOPHIL COUNT 0.0 10*3/uL 0.0 - 0.2 10*3/uL [facility] Basophils/100 WBC (Bld) 0.1 % 0.0 - 2.0 % [facility] Differential cell count method Nom (Bld) AUTO DIFF % [facility] Eosinophils (Bld) [#/Vol] 0.0 10*3/uL 0.0 - 0.7 10*3/uL [facility] Eosinophils/100 WBC (Bld) 0.1 % 0.0 - 11.0 % [facility] Erythrocyte distribution width (RBC) [Ratio] 13.9 % 11.5 - 14.5 % [facility] Hematocrit (Bld) [Volume fraction] 34.7 % Low 42.0 - 52.0 % [facility] Hemoglobin (Bld) [Mass/Vol] 11.6 g/dL Low [facility] Interpretation and review of laboratory results Abnormal [facility] Lymphocytes (Bld) [#/Vol] 0.8 10*3/uL Low 1.2 - 3.4 10*3/uL [facility] Lymphocytes/100 WBC (Bld) 6.0 % Low 20.0 - 55.0 % [facility] MCH (RBC) [Entitic mass] 28.9 pg 26.0 - 35.0 PG [facility] MCHC (RBC) [Mass/Vol] 33.4 g/dL [facility] MCV (RBC) [Entitic vol] 86.5 fL [facility] Monocytes (Bld) [#/Vol] 1.1 10*3/uL High 0.0 - 0.7 10*3/uL [facility] Monocytes/100 WBC (Bld) 7.6 % 0.0 - 10.0 % [facility] Neutrophils (Bld) [#/Vol] 12.1 10*3/uL High 1.4 - 6.5 10*3/uL [facility] Neutrophils/100 WBC (Bld) 86.2 % High 37.0 - 75.0 % [facility] Platelet mean volume (Bld) [Entitic vol] 8.5 fL [facility] Platelets (Bld) [#/Vol] 167 10*3/uL 130 - 400 10*3/uL [facility] RBC (Bld) [#/Vol] 4.01 10*6/uL 4.0 - 6.1 10*6/uL [facility] WBC (Bld) [#/Vol] 14.1 10*3/uL High 3.6 - 11.0 10*3/uL [facility] CKon 09-23-2023 CK [Catalytic activity/Vol] 787 U/L High [facility] CPKon 09-23-2023 CPK 787 IU/L High 55-170 [facility] Cardiac echo study Procedure on 09-23-2023 [...] Doppler, and color-flow Echocardiogram Imaging system used: [employer] 2D Dimensions IVSd 1.4 cm M: 0.6-1.0 [...] ms MVA PHT 4.40 cm2 MV Dec Nance 515.21 cm/s2 MV Decel. Time 176.32 (160-240 [...] Aortic Root 2.98 cm M: 3.1 - 3.2VXNLN45 mL Aortic Root Index1.4 cm/u2QJFAS51.15 mL M: 62 - 150 Ascending Aorta 3.09 cm M: 2.6 - 3.4LV Volume Index44.30 mL/m2 M: 34 - 74 Ascending Aorta Index: 1.5 cm/m2LA Vqpvnh61.0 mL Left Atrium 2.40 cm M: 3.0 [...] Ratio1.32MV PHT50.00 ms MVA PHT4.40 cm2MV Dec Nance 515.21 cm/s2 MV Decel. Ucmv058.32 (160-240 ms) Tricuspid Valve TR P. Velocity2.17 m/sRAP Estimate3 mmHg RVSP21.75 mmHgTR maxPG 18.75 mmHg [facility] Radiology Study observation (narrative) [facility] Cardiac echo study Procedure Ordered By: Javid Colindres on 09-23-2023 [facility] Work Phone: EEG AWAKE, ROUTINEon 023 Cecil Yu MD 09/23/2023 3:30 PM Interpreting physician: Cecil Yu M.D. This is a routine EEG performed on a 47 y.o. year-old male using standard 10-20 lead placement and a [employer] system. All data was obtained digitally and [...] activity consistent with a moderate diffuse encephalopathy. [facility] EEG AWAKE, ROUTINEOrdered By : Cecil Yu on 09-23-2023 [facility] Work Phone: GLUCOSE (POC DEVICE)on 09-23 GLUCOSE, POINT OF CARE [address] [facility] Interpretation and review of laboratory results Abnormal [facility] Operator [id number] [facility] GLUCOSE, POINT OF CARE [address] [facility] Interpretation and review of laboratory results Abnormal [facility] Operator [phone] [facility] GLUCOSE, POINT OF CARE 136 High [facility] Interpretation and review of laboratory results Abnormal [facility] Operator [id number] [facility] GLUCOSE, POINT OF CARE [address] [facility] [employer] Ceiling [employer]anger [id number] [facility] GLUCOSE, POINT OF CARE [address] [facility] [employer] [phone] [facility] GLUCOSE, POINT OF CARE [address] [facility] Operator [id number] [facility] MAGNESIUMon 09-23-2023 Magnesium [Mass/Vol] 1.9 mg/dL Normal 1.6-2.3 [facility] Magnesium [Mass/Vol] 1.9 mg/dL [facility] No Panel Informationon 09-23 Interpretation and review of laboratory results Abnormal [facility] POCT GLUCOSEon 09-23-2023 Glucose [Mass/Vol] 149 mg/dL High 70-100 [facility] SENIOR LEAD PROJECT MANAGER [id number] Normal [facility] Glucose [Mass/Vol] 149 mg/dL High 70-100 [facility] SENIOR LEAD PROJECT MANAGER [id number] Normal [facility] Glucose [Mass/Vol] 136 mg/dL High 70-100 [facility] SENIOR LEAD PROJECT MANAGER [id number] Normal [facility] Glucose [Mass/Vol] 91 mg/dL Normal 70-100 [facility] SENIOR LEAD PROJECT MANAGER [id number] Normal [facility] Glucose [Mass/Vol] 85 mg/dL Normal 70-100 [facility] SENIOR LEAD PROJECT MANAGER [id number] Normal [facility] Glucose [Mass/Vol] 86 mg/dL Normal 70-100 [facility] SENIOR LEAD PROJECT MANAGER Normal [facility] Glucose [Mass/Vol] 79 mg/dL Normal 70-100 [facility] Glucose [Mass/Vol] 89 mg/dL Normal 70-100 [facility] SENIOR LEAD PROJECT MANAGER [id number] Normal [facility] SENIOR LEAD PROJECT MANAGER [id number] Normal [facility] RENAL FUNCTION PANELon 09-23 Albumin [Mass/Vol] 3.5 G/dl 3.5 - 5.0 G/dl [facility] Calcium [Mass/Vol] 8.1 mg/dL Low [facility] Chloride [Moles/Vol] 112 mmol/L High [facility] Comment on above: Please note: Triglyc eride levels of 600mg/dL or higher may positively bias chloride results by approximately 2.1 mmol CO2 [Moles/Vol] 23 mmol/L [facility] Creatinine [Mass/Vol] 1.10 mg/dL [facility] GFR COMMENT Average GFR for 40-4 9 years old = 99. [facility] Comment on above: Chronic Kidney disea se, GFR = <60. Kidney failure, GFR = <15. The GFR estimate is not adjusted for extreme body surface area or acute process, nor has it been validated for women or ethnic groups other than and . GFR/1.73 sq M.predicted among blacks MDRD (S/P/Bld) [Vol rate/Area] 92 mL/min/{1.73_m2} ml/min/1.73s q.m [facility] GFR/1.73 sq M.predicted among non-blacks MDRD (S/P/Bld) [Vol rate/Area] 76 mL/min/{1.73_m2} ml/min/1.73s q.m [facility] Glucose post fast [Mass/Vol] 68 mg/dL Low [facility] Comment on above: NORMAL <100 mg/dL PREDIABETES 101-126 mg/dL DIABETES 126 mg/dL or higher Phosphate [Mass/Vol] 2.6 mg/dL [facility] Potassium [Moles/Vol] 3.6 mmol/L [facility] Sodium [Moles/Vol] 140 mmol/L [facility] Urea nitrogen [Mass/Vol] 22 mg/dL High [facility] RENAL PANEL,FASTINGon 2022 ALBUMIN 3.5 G/dl Normal 3.5-5.0 [facility] Calcium [Mass/Vol] 8.1 mg/dL Low 8.4-10.2 [facility] Chloride [Moles/Vol] 112 mmol/L High 98-107 [facility] Comment on above: Result Comment: Plea se note: Triglyceride levels of 600mg/dL or higher may positively bias chloride results by approximately 2.1 mmol CO2 [Moles/Vol] 23 mmol/L Normal 22-30 [facility] Creatinine [Mass/Vol] 1.10 mg/dL Normal 0.7-1.2 [facility] EST. GFR, 92 ml/min/1.73sq.m Normal [facility] EST. GFR,Non 76 ml/min/1.73sq.m Normal [facility] GFR Information Average GFR for 40-4 9 years old = 99. Normal [facility] Comment on above: Result Comment: Machine Stoppage Frequency Checker alfreda Kidney disease, GFR = <60. Kidney failure, GFR = <15. The GFR estimate is not adjusted for extreme body surface area or acute process, nor has it been validated for women or ethnic groups other than and . Glucose [Mass/Vol] 68 mg/dL Low 70-100 [facility] Comment on above: Result Comment: NORMAL <100 mg/dL PREDIABETES 101-126 mg/dL DIABETES 126 mg/dL or higher PHOSPHOROUS 2.6 MG/DL Normal 2.5-4.5 [facility] Potassium [Moles/Vol] 3.6 mmol/L Normal 3.5-5.1 [facility] Sodium [Moles/Vol] 140 mmol/L Normal 137-145 [facility] Urea nitrogen [Mass/Vol] 22 mg/dL High 7-20 [facility] URINE CULTUREon 09-23-2023 Bacteria identified Cx Nom (Unsp spec) NO GROWTH 2 DAYS [facility] Comment on above: Testing performed at [place] [id number] Service comment (Unsp spec) [Interp] 09/23/2023 [facility] Comment on above: FINAL SPECIMEN DESCRIPTION URINE - OTHER A [facility] AMMONIAon 09-22-2023 Ammonia (P) [Moles/Vol] 42 umol/L High 9-30 [facility] Ammonia (P) [Mass/Vol] 42 ug/dL High [facility] Interpretation and review of laboratory results Abnormal [facility] ARTERIAL BLOOD GASon 023 JODY'S TEST NOT APPLICABLE Normal [facility] BASE DEFICIT 1.1 mEq/L Normal 0-2 [facility] cHCO3 (P,ST)C 23.5 mEq/L Normal 22-26 [facility] ctHb 12.2 g/dl Normal [facility] FCOHb 0.3 % Normal [facility] FMetHb 0.8 % Normal [facility] FO2Hb 97.8 % Normal [facility] O2 DEVICE VENT Normal [facility] PATIENT DIAGNOSIS RESPIRATORY FAILURE Normal [facility] PATIENT O2 SETTINGS 30% Normal [facility] pCO2, arterial 38 mmHg Normal 35-45 [facility] pH, arterial 7.40 Normal 7.350-7.450 [facility] pO2,arterial 150 mmHg High 80-100 [facility] SAMPLE SITE RIGHT BRACHIAL Normal [facility] sO2,arterial 98.9 % Normal 95-100 [facility] Arterial patency Wrist artery --pre arterial puncture NOT APPLICABLE [facility] Base deficit (BldV) [Moles/Vol] 1.1 [facility] Carboxyhemoglobin (Bld) [Mass fraction] 0.3 % [facility] CO2 (Bld) [Partial pressure] 38 mm[Hg] [facility] Diagnosis Narrative RESPIRATORY FAILURE [facility] HCO3 (Bld) [Moles/Vol] 23.5 mmol/L [facility] Hemoglobin (Bld) [Mass/Vol] 12.2 g/dL [facility] Interpretation and review of laboratory results Abnormal [facility] Methemoglobin (BldC) [Mass fraction] 0.8 % [facility] O2 Device VENT [facility] Oxygen (Bld) [Partial pressure] 150 mm[Hg] High [facility] Oxyhemoglobin (Bld) [Mass fraction] 97.8 % [facility] PATIENT PO2 SETTINGS 30% [facility] pH (Bld) 7.40 [pH] 7.350 - 7.450 [facility] Specimen site Narrative RIGHT BRACHIAL [facility] C REACTIVE PROTEINon 023 CRP [Mass/Vol] 18.1 mg/L High 0-10 [facility] CRP [Mass/Vol] 18.1 mg/L High 0 - 10 MG/L [facility] CBC09-22-2023 ABSOLUTE BAS 0.0 10*3/uL Normal 0.0-0.2 [facility] ABSOLUTE EOS 0.1 10*3/uL Normal 0.0-0.7 [facility] ABSOLUTE NEUTROPHIL COUNT 8.5 10*3/uL High 1.4-6.5 [facility] Basophils/100 WBC (Bld) 0.3 % Normal 0.0-2.0 [facility] DTYPE AUTO DIFF Normal [facility] Eosinophils/100 WBC (Bld) 0.5 % Normal 0.0-11.0 [facility] Lymphocytes (Bld) [#/Vol] 1.4 10*3/uL Normal 1.2-3.4 [facility] Lymphocytes/100 WBC (Bld) 12.4 % Low 20.0-55.0 [facility] Monocytes (Bld) [#/Vol] 1.0 10*3/uL High 0.0-0.7 [facility] Monocytes/100 WBC (Bld) 9.1 % Normal 0.0-10.0 [facility] Neutrophils/100 WBC (Bld) 77.7 % High 37.0-75.0 [facility] Erythrocyte distribution width (RBC) [Ratio] 14.1 % Normal 11.5-14.5 [facility] Hematocrit (Bld) [Volume fraction] 38.0 % Low 42.0-52.0 [facility] Comment on above: Result Comment: IV F LUIDS Hemoglobin (Bld) [Mass/Vol] 12.7 g/dL Low 14.0-18.0 [facility] Comment on above: Result Comment: iv f luids MCH (RBC) [Entitic mass] 28.9 pg Normal 26.0-35.0 [facility] MCHC (RBC) [Mass/Vol] 33.4 g/dL Normal 27.0-37.0 [facility] MCV (RBC) [Entitic vol] 86.7 fL Normal 80.0-100.0 [facility] Platelet mean volume (Bld) [Entitic vol] 8.5 fL Normal 7.4-11.0 [facility] Platelets (Bld) [#/Vol] 151 10*3/uL Normal 130-400 [facility] RBC (Bld) [#/Vol] 4.39 10*6/uL Normal 4.0-6.1 [facility] WBC (Bld) [#/Vol] 11.0 10*3/uL Normal 3.6-11.0 [facility] CBC, EDIF, PLATELETon 2022 ABSOLUTE BASOPHIL COUNT 0.0 10*3/uL 0.0 - 0.2 10*3/uL [facility] Basophils/100 WBC (Bld) 0.3 % 0.0 - 2.0 % [facility] Differential cell count method Nom (Bld) AUTO DIFF % [facility] Eosinophils (Bld) [#/Vol] 0.1 10*3/uL 0.0 - 0.7 10*3/uL [facility] Eosinophils/100 WBC (Bld) 0.5 % 0.0 - 11.0 % [facility] Erythrocyte distribution width (RBC) [Ratio] 14.1 % 11.5 - 14.5 % [facility] Hematocrit (Bld) [Volume fraction] 38.0 % Low 42.0 - 52.0 % [facility] Comment on above: IV FLUIDS Hemoglobin (Bld) [Mass/Vol] 12.7 g/dL Low [facility] Comment on above: iv fluids Interpretation and review of laboratory results Abnormal [facility] Lymphocytes (Bld) [#/Vol] 1.4 10*3/uL 1.2 - 3.4 10*3/uL [facility] Lymphocytes/100 WBC (Bld) 12.4 % Low 20.0 - 55.0 % [facility] MCH (RBC) [Entitic mass] 28.9 pg 26.0 - 35.0 PG [facility] MCHC (RBC) [Mass/Vol] 33.4 g/dL [facility] MCV (RBC) [Entitic vol] 86.7 fL [facility] Monocytes (Bld) [#/Vol] 1.0 10*3/uL High 0.0 - 0.7 10*3/uL [facility] Monocytes/100 WBC (Bld) 9.1 % 0.0 - 10.0 % [facility] Neutrophils (Bld) [#/Vol] 8.5 10*3/uL High 1.4 - 6.5 10*3/uL [facility] Neutrophils/100 WBC (Bld) 77.7 % High 37.0 - 75.0 % [facility] Platelet mean volume (Bld) [Entitic vol] 8.5 fL [facility] Platelets (Bld) [#/Vol] 151 10*3/uL 130 - 400 10*3/uL [facility] RBC (Bld) [#/Vol] 4.39 10*6/uL 4.0 - 6.1 10*6/uL [facility] WBC (Bld) [#/Vol] 11.0 10*3/uL 3.6 - 11.0 10*3/uL [facility] CKon 09-22-2023 CK [Catalytic activity/Vol] 282 U/L High [facility] CMP FASTINGon 09-22-2023 A:G RATIO 1.3 RATIO Normal 1.3-2.2 [facility] ALBUMIN 3.4 G/dl Low 3.5-5.0 [facility] ALP [Catalytic activity/Vol] 76 U/L Normal 38-126 [facility] ALT [Catalytic activity/Vol] 25 U/L Normal <50 [facility] AST [Catalytic activity/Vol] 35 U/L Normal 17-59 [facility] Bilirubin [Mass/Vol] 0.4 mg/dL Normal 0.2-1.3 [facility] Calcium [Mass/Vol] 8.2 mg/dL Low 8.4-10.2 [facility] Chloride [Moles/Vol] 109 mmol/L High 98-107 [facility] Comment on above: Result Comment: Juana spencer note: Triglyceride levels of 600mg/dL or higher may positively bias chloride results by approximately 2.1 mmol CO2 [Moles/Vol] 23 mmol/L Normal 22-30 [facility] Creatinine [Mass/Vol] 1.40 mg/dL High 0.7-1.2 [facility] EST. GFR, 69 ml/min/1.73sq.m Normal [facility] EST. GFR,Non 57 ml/min/1.73sq.m [facility] GFR Information Average GFR for 40-4 9 years old = 99. Normal [facility] Comment on above: Result Comment: Machine Stoppage Frequency Checker alfreda Kidney disease, GFR = <60. Kidney failure, GFR = <15. The GFR estimate is not adjusted for extreme body surface area or acute process, nor has it been validated for women or ethnic groups other than and . Glucose [Mass/Vol] 72 mg/dL Normal 70-100 [facility] Comment on above: Result Comment: NORMAL <100 mg/dL PREDIABETES 101-126 mg/dL DIABETES 126 mg/dL or higher Potassium [Moles/Vol] 4.2 mmol/L Normal 3.5-5.1 [facility] Protein [Mass/Vol] 6.0 g/dL Low 6.3-8.2 [facility] Sodium [Moles/Vol] 138 mmol/L Normal 137-145 [facility] Urea nitrogen [Mass/Vol] 35 mg/dL High 7-20 [facility] COMPREHENSIVE METABOLIC PANE Jt 09-22-2023 Albumin [Mass/Vol] 3.4 G/dl Low 3.5 - 5.0 G/dl [facility] Albumin/Globulin [Mass ratio] 1.3 {ratio} [facility] ALP [Catalytic activity/Vol] 76 U/L [facility] ALT [Catalytic activity/Vol] 25 U/L NINF [facility] AST [Catalytic activity/Vol] 35 U/L [facility] Bilirubin [Mass/Vol] 0.4 mg/dL [facility] Calcium [Mass/Vol] 8.2 mg/dL Low [facility] Chloride [Moles/Vol] 109 mmol/L [facility] Comment on above: Please note: Triglyc eride levels of 600mg/dL or higher may positively bias chloride results by approximately 2.1 mmol CO2 [Moles/Vol] 23 mmol/L [facility] Creatinine [Mass/Vol] 1.40 mg/dL High [facility] GFR COMMENT Average GFR for 40-4 9 years old = 99. [facility] Comment on above: Chronic Kidney disea se, GFR = <60. Kidney failure, GFR = <15. The GFR estimate is not adjusted for extreme body surface area or acute process, nor has it been validated for women or ethnic groups other than and . GFR/1.73 sq M.predicted among blacks MDRD (S/P/Bld) [Vol rate/Area] 69 mL/min/{1.73_m2} ml/min/1.73s q.m [facility] GFR/1.73 sq M.predicted among non-blacks MDRD (S/P/Bld) [Vol rate/Area] 57 mL/min/{1.73_m2} ml/min/1.73s q.m [facility] Glucose post fast [Mass/Vol] 72 mg/dL [facility] Comment on above: NORMAL <100 mg/dL PREDIABETES 101-126 mg/dL DIABETES 126 mg/dL or higher Interpretation and review of laboratory results Abnormal [facility] Potassium [Moles/Vol] 4.2 mmol/L [facility] Protein [Mass/Vol] 6.0 g/dL Low [facility] Sodium [Moles/Vol] 138 mmol/L [facility] Urea nitrogen [Mass/Vol] 35 mg/dL High [facility] CPKon 09-22-2023 CPK 282 IU/L High 55-170 [facility] ESRon 09-22-2023 ESR (Bld) [Velocity] 21 mm/h High 0-15 [facility] GLUCOSE (POC DEVICE)on 09-22 GLUCOSE, POINT OF CARE [address] [facility] GLUCOSE, POINT OF CARE [address] [facility] [employer] [phone] [facility] [employer] [id number] [facility] GLUCOSE, POINT OF CARE [address] [facility] [employer] [id number] [facility] GLUCOSE, POINT OF CARE [address] [facility] [employer] [phone] [facility] GLUCOSE, POINT OF CARE [address] [facility] Interpretation and review of laboratory results Abnormal [facility] [employer] [phone] [facility] GLUCOSE, POINT OF CARE [address] [facility] [employer] [phone] [facility] GLUCOSE, POINT OF CARE [address] [facility] GLUCOSE, POINT OF CARE [address] [facility] Interpretation and review of laboratory results Abnormal [facility] Operator [id number] [facility] Operator [id number] [facility] HEMOGLOBIN A1Con 09-22-2023 Glucose [Mass/Vol] 280 mg/dL Normal [facility] HbA1c (Bld) [Mass fraction] 11.4 % High 0-6 [facility] Comment on above: Result Comment: NORMAL <5.7% PREDIABETES 5.7-6.4% DIABETES 6.5% OR HIGHER Glucose [Mass/Vol] 280 mg/dL [facility] HbA1c (Bld) [Mass fraction] 11.4 % High 0 - 6 % [facility] Comment on above: NORMAL <5.7% PREDIABETES 5.7-6.4% DIABETES 6.5% OR HIGHER Interpretation and review of laboratory results Abnormal [facility] MAGNESIUMon 09-22-2023 Magnesium [Mass/Vol] 2.0 mg/dL Normal 1.6-2.3 [facility] Magnesium [Mass/Vol] 2.0 mg/dL [facility] MR Brain WO contraston 09-22 IMPRESSION: No [...] Major vascular flow voids are preserved. OTHER: [id number] sphenoid sinus mucosal inflammatory change, + polypoidal [...] Major vascular flow voids are preserved. OTHER: [id number] sphenoid sinus mucosal inflammatory change, + polypoidal features on the right. __ IMPRESSION IMPRESSION: No infarct, mass or hemorrhage [facility] Radiology Study observation (narrative) [facility] MR Brain WO contrastOrdered By: Eduin De León on 09-22-2023 [facility] Work Phone: MRI BRAIN WITHOUT CONTRASTon [...] Major vascular flow voids are preserved. OTHER: [id number]-eh-vehukyql sphenoid sinus mucosal inflammatory change, + polypoidal features on the right. __ IMPRESSION: No infarct, mass or hemorrhage Normal [facility] MRSA SCREENon 09-22-2023 MRSA DNA MEETA+probe Ql (Unsp spec) Negative Normal NEGATIVE [facility] STAPH AUREUS SCREEN Positive Abnormal NEGATIVE [facility] Comment on above: Result Comment: TEST ING PERFORMED BY PCR No Panel Informationon 09-22 [facility] Interpretation and review of laboratory results Abnormal [facility] POCT GLUCOSEon 09-22-2023 Glucose [Mass/Vol] 98 mg/dL Normal 70-100 [facility] SENIOR LEAD PROJECT MANAGER [id number] Normal [facility] Glucose [Mass/Vol] 73 mg/dL Normal 70-100 [facility] SENIOR LEAD PROJECT MANAGER [id number] Normal [facility] Glucose [Mass/Vol] 67 mg/dL Low 70-100 [facility] SENIOR LEAD PROJECT MANAGER [id number] Normal [facility] Glucose [Mass/Vol] 80 mg/dL Normal 70-100 [facility] SENIOR LEAD PROJECT MANAGER [id number] Normal [facility] Glucose [Mass/Vol] 95 mg/dL Normal 70-100 [facility] Glucose [Mass/Vol] 109 mg/dL High 70-100 [facility] SENIOR LEAD PROJECT MANAGER [id number] Normal [facility] SENIOR LEAD PROJECT MANAGER [id number] Normal [facility] Glucose [Mass/Vol] 158 mg/dL High 70-100 [facility] SENIOR LEAD PROJECT MANAGER [id number] Normal [facility] PROCALCITONINon 09-22-2023 PROCALCITONIN 0.08 ng/mL Normal 0.00-0.25 [facility] Comment on above: Result Comment: PCT Interpretation Less than 0.10 ng/mL, antibiotic therapy strongly discouraged. 0.10-0.25 ng/mL, antibiotic therapy discouraged. 0.25-0.50 ng/mL, antibiotic therapy encouraged. Greater than 0.50 ng/mL, antibiotic therapy strongly encouraged. PROCALCITONIN 0.08 ng/mL 0.00 - 0.25 ng/mL [facility] Comment on above: PCT Interpretation Less than 0.10 ng/mL, antibiotic therapy strongly discouraged. 0.10-0.25 ng/mL, antibiotic therapy discouraged. 0.25-0.50 ng/mL, antibiotic therapy encouraged. Greater than 0.50 ng/mL, antibiotic therapy strongly encouraged. [facility] RAPID TOX SCREEN,URINEon AMPHETAMINE Negative Normal NEGATIVE [facility] Comment on above: Result Comment: <500 ng/ml CUTOFF BARBITURATES Negative Normal NEGATIVE [facility] Comment on above: Result Comment: <200 ng/ml CUTOFF BENZODIAZEPINES Positive Abnormal NEGATIVE [facility] Comment on above: Result Comment: <200 ng/ml CUTOFF *Unconfirmed Screening Result* Unconfirmed screening results are to be used only for medical treatment purposes. BUPRENORPHINE Negative Normal NEGATIVE [facility] Comment on above: Result Comment: <12. 5 ng/ml CUTOFF CANNABINOIDS Negative Normal NEGATIVE [facility] Comment on above: Result Comment: <50 ng/ml CUTOFF COCAINE Negative Normal NEGATIVE [facility] Comment on above: Result Comment: <150 ng/ml CUTOFF FENTANYL Negative Normal NEGATIVE [facility] Comment on above: Result Comment: 20 n g/mL CUTOFF *Unconfirmed Screening Result* Unconfirmed screening results are to be used only for medical treatment purposes. This test has not been approved by the FDA. MDMA Positive Abnormal NEGATIVE [facility] Comment on above: Result Comment: <100 0 ng/ml CUTOFF METHADONE Negative Normal NEGATIVE [facility] Comment on above: Result Comment: Meth adone Metabolite <100 ng/ml CUTOFF METHAMPHETAMINE Negative Normal NEGATIVE [facility] Comment on above: Result Comment: <500 ng/ml CUTOFF OPIATES Negative Normal NEGATIVE [facility] Comment on above: Result Comment: <300 ng/ml CUTOFF OXYCODONE Negative Normal NEGATIVE [facility] Comment on above: Result Comment: <100 ng/ml CUTOFF TRICYCLIC ANTIDEPRESSANTS Negative Normal NEGATIVE [facility] Comment on above: Result Comment: <100 0 ng/ml CUTOFF RESPIRATORY SYNCYTIAL VIRUS PCRon 09-22-2023 RSV Ag IA Ql (Unsp spec) Negative NEGATIVE [facility] RSVon 09-22-2023 RSV Negative Normal NEGATIVE [facility] SEDIMENTATION RATE, AUTOMATE Don 09-22-2023 ESR (Bld) [Velocity] 21 mm/h [facility] Interpretation and review of laboratory results Abnormal [facility] TOXICOLOGY DRUG SCREEN, URIN Harpreet 09-22-2023 Amphetamine (U) [Mass/Vol] Negative NEGATIVE NG/ML [facility] Comment on above: <500 ng/ml CUTOFF Barbiturates Screen Ql (U) Negative NEGATIVE NG/ML [facility] Comment on above: <200 ng/ml CUTOFF Benzodiazepines Ql (U) Positive Abnormal NEGAT RAJAN NG/ML [facility] Comment on above: <200 ng/ml CUTOFF *Unconfirmed Screening Result* Unconfirmed screening results are to be used only for medical treatment purposes. Benzoylecgonine Ql (U) Negative NEGAT RAJAN NG/ML [facility] Comment on above: <150 ng/ml CUTOFF Buprenorphine Ql (U) Negative NEGATIV E NG/ML [facility] Comment on above: <12.5 ng/ml CUTOFF Cannabinoids Screen Ql (U) Negative NEGATIVE NG/ML [facility] Comment on above: <50 ng/ml CUTOFF Fentanyl Negative NEGATIVE NG/ML [facility] Comment on above: 20 ng/mL CUTOFF *Unconfirmed Screening Result* Unconfirmed screening results are to be used only for medical treatment purposes. This test has not been approved by the FDA. Interpretation and review of laboratory results Abnormal [facility] Methadone Screen Ql (U) Negative NEGATIVE NG/ML [facility] Comment on above: Methadone Metabolite <100 ng/ml CUTOFF Methamphetamine (U) [Mass/Vol] Negative NEGATIVE NG/ML [facility] Comment on above: <500 ng/ml CUTOFF Methylenedioxymethamph etamine Ql (Unsp spec) Positive Abnormal NEGATIVE NG/ML [facility] Comment on above: <1000 ng/ml CUTOFF Opiates Screen Ql (U) Negative NEGATI VE NG/ML [facility] Comment on above: <300 ng/ml CUTOFF oxyCODONE Ql (U) Negative NEGATIVE NG/ML [facility] Comment on above: <100 ng/ml CUTOFF Tricyclic antidepressants Screen Ql (U) Negative NEGATIVE NG/ML [facility] Comment on above: <1000 ng/ml CUTOFF [facility] TROPONIN I, HIGH SENSITIVITY on 09-22-2023 TROPONIN I, HIGH SENSITIVITY 28 pg/mL High 0-20 [facility] Comment on above: Result Comment: Indeterminant: >12 to 100 pg/mL female >20 to 100 pg/mL male Indicative of myocardial injury. Serial sampling is recommended, a change of greater than or equal to 20 pg/mL is indicative of acute coronary syndrome. Interpretation and review of laboratory results Abnormal [facility] TROPONIN I, HIGH SENSITIVITY 28 pg/mL High 0 - 20 pg/mL [facility] Comment on above: Indeterminant: >12 to 100 pg/mL female >20 to 100 pg/mL male Indicative of myocardial injury. Serial sampling is recommended, a change of greater than or equal to 20 pg/mL is indicative of acute coronary syndrome. [facility] TSH W/FT4 REFLEXon 3 TSH Qn 0.594 m[IU]/L [facility] TSH,REFLEX FREE T4on 023 TSH,REFLEX FREE T4 0.594 uIU/ML Normal 0.46-4.68 [facility] VENTILATOR SETTINGSon 2022 fiO2 30% Normal [facility] PEEP 5 cmH2O Normal [facility] PRESSURE SUPPORT 5 cmH2O Normal [facility] VENT SETTING PS Normal [facility] BIPAP AndOr CPAP setting Ventilator PS [facility] Oxygen/Inspired gas setting [Volume Fraction] Ventilator 30% % [facility] Positive end expiratory pressure setting Ventilator 5 cmH2O [facility] Pressure support setting Ventilator 5 cmH2O [facility] ALCOHOLon 09-21-2023 Ethanol [Mass/Vol] mg/dL Normal 0-10 [facility] Comment on above: Result Comment: INTOXICATION >80 MG/DL FATAL >400 MG/DL ALCOHOL (ETHANOL),BLOODon Ethanol [Mass/Vol] mg/dL [facility] Comment on above: INTOXICATION >80 MG/DL FATAL >400 MG/DL ARTERIAL BLOOD GASon 023 BASE EXCESS 1.3 mEq/L Normal 0-2 [facility] cHCO3 (P,ST)C 25.9 mEq/L Normal 22-26 [facility] ctHb 14.1 g/dl Normal [facility] FCOHb 0.6 % Normal [facility] FMetHb 0.5 % Normal [facility] FO2Hb 98.7 % Normal [facility] pCO2, arterial 40 mmHg Normal 35-45 [facility] pH, arterial 7.42 Normal 7.350-7.450 [facility] pO2,arterial 492 mmHg High 80-100 [facility] sO2,arterial 99.9 % Normal 95-100 [facility] Base excess Calc (BldV) [Moles/Vol] 1.3 mmol/L [facility] Carboxyhemoglobin (Bld) [Mass fraction] 0.6 % [facility] CO2 (Bld) [Partial pressure] 40 mm[Hg] [facility] HCO3 (Bld) [Moles/Vol] 25.9 mmol/L A [facility] Hemoglobin (Bld) [Mass/Vol] 14.1 g/dL [facility] Interpretation and review of laboratory results Abnormal [facility] Methemoglobin (BldC) [Mass fraction] 0.5 % [facility] Oxygen (Bld) [Partial pressure] 492 mm[Hg] High [facility] Oxyhemoglobin (Bld) [Mass fraction] 98.7 % [facility] pH (Bld) 7.42 [pH] 7.350 - 7.450 [facility] BLOOD CULTUREon 09-21-2023 Bacteria identified Cx Nom (Bld) SPECIMEN DESCRIPTION PERIPHERAL BLOOD DRAW SPECIAL REQUESTS LEFT HAND CULTURE NO GROWTH 5 DAYS * Result Note: Testing performed at [place] [address] * REPORT STATUS 09/26/2023 * Result Note: FINAL * Normal [facility] Comment on above: Performed By: #### L HSV #### Testing performed at [facility] Bacteria identified Cx Nom (Bld) SPECIMEN DESCRIPTION PERIPHERAL BLOOD DRAW SPECIAL REQUESTS LEFT ARM CULTURE NO GROWTH 5 DAYS * Result Note: Testing performed at [place] [address] * REPORT STATUS 09/26/2023 * Result Note: FINAL * Normal [facility] Comment on above: Performed By: #### L HSV #### Testing performed at [facility] CBCon 09-21-2023 ABSOLUTE BAS 0.0 10*3/uL Normal 0.0-0.2 [facility] ABSOLUTE EOS 0.0 10*3/uL Normal 0.0-0.7 [facility] ABSOLUTE NEUTROPHIL COUNT 9.8 10*3/uL High 1.4-6.5 [facility] Basophils/100 WBC (Bld) 0.2 % Normal 0.0-2.0 [facility] DTYPE AUTO DIFF Normal [facility] Eosinophils/100 WBC (Bld) 0.2 % Normal 0.0-11.0 [facility] Lymphocytes (Bld) [#/Vol] 0.6 10*3/uL Low 1.2-3.4 [facility] Lymphocytes/100 WBC (Bld) 5.6 % Low 20.0-55.0 [facility] Monocytes (Bld) [#/Vol] 0.3 10*3/uL Normal 0.0-0.7 [facility] Monocytes/100 WBC (Bld) 3.0 % Normal 0.0-10.0 [facility] Neutrophils/100 WBC (Bld) 91.0 % High 37.0-75.0 [facility] Erythrocyte distribution width (RBC) [Ratio] 14.3 % Normal 11.5-14.5 [facility] Hematocrit (Bld) [Volume fraction] 42.6 % Normal 42.0-52.0 [facility] Hemoglobin (Bld) [Mass/Vol] 14.5 g/dL Normal 14.0-18.0 [facility] MCH (RBC) [Entitic mass] 29.1 pg Normal 26.0-35.0 [facility] MCHC (RBC) [Mass/Vol] 34.0 g/dL Normal 27.0-37.0 [facility] MCV (RBC) [Entitic vol] 85.6 fL Normal 80.0-100.0 [facility] Platelet mean volume (Bld) [Entitic vol] 8.5 fL Normal 7.4-11.0 [facility] Platelets (Bld) [#/Vol] 176 10*3/uL Normal 130-400 [facility] RBC (Bld) [#/Vol] 4.98 10*6/uL Normal 4.0-6.1 [facility] WBC (Bld) [#/Vol] 10.8 10*3/uL Normal 3.6-11.0 [facility] CBC, EDIF, PLATELETon 2022 ABSOLUTE BASOPHIL COUNT 0.0 10*3/uL 0.0 - 0.2 10*3/uL [facility] Basophils/100 WBC (Bld) 0.2 % 0.0 - 2.0 % [facility] Differential cell count method Nom (Bld) AUTO DIFF % [facility] Eosinophils (Bld) [#/Vol] 0.0 10*3/uL 0.0 - 0.7 10*3/uL [facility] Eosinophils/100 WBC (Bld) 0.2 % 0.0 - 11.0 % [facility] Erythrocyte distribution width (RBC) [Ratio] 14.3 % 11.5 - 14.5 % [facility] Hematocrit (Bld) [Volume fraction] 42.6 % 42.0 - 52.0 % [facility] Hemoglobin (Bld) [Mass/Vol] 14.5 g/dL [facility] Interpretation and review of laboratory results Abnormal [facility] Lymphocytes (Bld) [#/Vol] 0.6 10*3/uL Low 1.2 - 3.4 10*3/uL [facility] Lymphocytes/100 WBC (Bld) 5.6 % Low 20.0 - 55.0 % [facility] MCH (RBC) [Entitic mass] 29.1 pg 26.0 - 35.0 PG [facility] MCHC (RBC) [Mass/Vol] 34.0 g/dL [facility] MCV (RBC) [Entitic vol] 85.6 fL [facility] Monocytes (Bld) [#/Vol] 0.3 10*3/uL 0.0 - 0.7 10*3/uL [facility] Monocytes/100 WBC (Bld) 3.0 % 0.0 - 10.0 % [facility] Neutrophils (Bld) [#/Vol] 9.8 10*3/uL High 1.4 - 6.5 10*3/uL [facility] Neutrophils/100 WBC (Bld) 91.0 % High 37.0 - 75.0 % [facility] Platelet mean volume (Bld) [Entitic vol] 8.5 fL [facility] Platelets (Bld) [#/Vol] 176 10*3/uL 130 - 400 10*3/uL [facility] RBC (Bld) [#/Vol] 4.98 10*6/uL 4.0 - 6.1 10*6/uL [facility] WBC (Bld) [#/Vol] 10.8 10*3/uL 3.6 - 11.0 10*3/uL [facility] CMP FASTINGon 09-21-2023 A:G RATIO 1.5 RATIO Normal 1.3-2.2 [facility] ALBUMIN 4.4 G/dl Normal 3.5-5.0 [facility] ALP [Catalytic activity/Vol] 103 U/L Normal 38-126 [facility] ALT [Catalytic activity/Vol] 34 U/L Normal <50 [facility] AST [Catalytic activity/Vol] 39 U/L Normal 17-59 [facility] Bilirubin [Mass/Vol] 0.6 mg/dL Normal 0.2-1.3 [facility] Calcium [Mass/Vol] 9.0 mg/dL Normal 8.4-10.2 [facility] Chloride [Moles/Vol] 103 mmol/L Normal 98-107 [facility] Comment on above: Result Comment: Juana spencer note: Triglyceride levels of 600mg/dL or higher may positively bias chloride results by approximately 2.1 mmol CO2 [Moles/Vol] 24 mmol/L Normal 22-30 [facility] Creatinine [Mass/Vol] 1.30 mg/dL High 0.7-1.2 [facility] GFR Information Unable to calculate GFR due to inappropriate age/gender/creatinine value. Normal [facility] Glucose [Mass/Vol] 245 mg/dL High 70-100 [facility] Comment on above: Result Comment: NORMAL <100 mg/dL PREDIABETES 101-126 mg/dL DIABETES 126 mg/dL or higher Potassium [Moles/Vol] 4.0 mmol/L Normal 3.5-5.1 [facility] Protein [Mass/Vol] 7.3 g/dL Normal 6.3-8.2 [facility] Sodium [Moles/Vol] 135 mmol/L Low 137-145 [facility] Urea nitrogen [Mass/Vol] 37 mg/dL High 7-20 [facility] COMPREHENSIVE METABOLIC PANE Jt 09-21-2023 Albumin [Mass/Vol] 4.4 G/dl 3.5 - 5.0 G/dl [facility] Albumin/Globulin [Mass ratio] 1.5 {ratio} [facility] ALP [Catalytic activity/Vol] 103 U/L [facility] ALT [Catalytic activity/Vol] 34 U/L NINF [facility] AST [Catalytic activity/Vol] 39 U/L [facility] Bilirubin [Mass/Vol] 0.6 mg/dL [facility] Calcium [Mass/Vol] 9.0 mg/dL [facility] Chloride [Moles/Vol] 103 mmol/L [facility] Comment on above: Please note: Triglyc eride levels of 600mg/dL or higher may positively bias chloride results by approximately 2.1 mmol CO2 [Moles/Vol] 24 mmol/L [facility] Creatinine [Mass/Vol] 1.30 mg/dL High [facility] GFR COMMENT Unable to calculate GFR due to inappropriate age/gender/creatinine value. [facility] Glucose post fast [Mass/Vol] 245 mg/dL [facility] Comment on above: NORMAL <100 mg/dL PREDIABETES 101-126 mg/dL DIABETES 126 mg/dL or higher Interpretation and review of laboratory results Abnormal [facility] Potassium [Moles/Vol] 4.0 mmol/L [facility] Protein [Mass/Vol] 7.3 g/dL [facility] Sodium [Moles/Vol] 135 mmol/L Low [facility] Urea nitrogen [Mass/Vol] 37 mg/dL [facility] CT HEAD WITHOUT CONTRASTon 1 11-22-2022 [...] intracranial hemorrhage or other acute finding. Normal [facility] CT Head WO contraston 2022 IMPRESSION: [...] of intracranial hemorrhage or other acute finding. [facility] Radiology Study observation (narrative) [facility] CT Head WO contrastOrdered B y: Kris Cherry on 09-21-2023 [facility] Work Phone: CT SPINE CERVICAL WITHOUT [...] osseous abnormality. Degenerative changes detailed above. Normal [facility] GLUCOSE (POC DEVICE)on 09-21 GLUCOSE, POINT OF CARE [address] [facility] Interpretation and review of laboratory results Abnormal [facility] [employer] [id number] [facility] GLUCOSE, POINT OF CARE [address] [facility] Interpretation and review of laboratory results Abnormal [facility] Operator [id number] [facility] LACTATE, BLOODon 09-21-2023 Interpretation and review of laboratory results Abnormal [facility] Lactate [Moles/Vol] 2.1 mmol/L Critically high 0.7 - 2.0 mmol/L [facility] Comment on above: PLEASE REPEAT INITIA L CRITICAL IN 3 HOURS IF ED OR INPATIENT SEPSIS PATIENT CALLED TO AND READ BACK BY SIRENA HERNANDEZ IN ER 12.6.23 1706 BY MAUREEN [facility] LACTATE,BLOODon 09-21-2023 Lactate [Moles/Vol] 2.1 mmol/L Critically high 0.7-2.0 [facility] Comment on above: Result Comment: PLEA SE REPEAT INITIAL CRITICAL IN 3 HOURS IF ED OR INPATIENT SEPSIS PATIENT CALLED TO AND READ BACK BY SIRENA HERNANDEZ IN ER 12.6.23 1706 BY MAUREEN MAGNESIUMon 09-21-2023 Magnesium [Mass/Vol] 2.0 mg/dL Normal 1.6-2.3 [facility] Magnesium [Mass/Vol] 2.0 mg/dL [facility] No Panel Informationon 09-21 Interpretation and review of laboratory results Abnormal [facility] POCT GLUCOSEon 09-21-2023 Glucose [Mass/Vol] 232 mg/dL High 70-100 [facility] [employer]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 No acute cardiopulmonary abnormality. [facility] Radiology Study observation (narrative) [facility] Portable XR Chest Views APOr dered By: Deven Junior on 09-21-2023 [facility] Work Phone: RAPID TOX SCREEN,URINEon AMPHETAMINE Negative Normal NEGATIVE [facility] Comment on above: Result Comment: <500 ng/ml CUTOFF BARBITURATES Negative Normal NEGATIVE [facility] Comment on above: Result Comment: <200 ng/ml CUTOFF BENZODIAZEPINES Positive Abnormal NEGATIVE [facility] Comment on above: Result Comment: <200 ng/ml CUTOFF *Unconfirmed Screening Result* Unconfirmed screening results are to be used only for medical treatment purposes. BUPRENORPHINE Negative Normal NEGATIVE [facility] Comment on above: Result Comment: <12. 5 ng/ml CUTOFF CANNABINOIDS Negative Normal NEGATIVE [facility] Comment on above: Result Comment: <50 ng/ml CUTOFF COCAINE Negative Normal NEGATIVE [facility] Comment on above: Result Comment: <150 ng/ml CUTOFF FENTANYL Negative Normal NEGATIVE [facility] Comment on above: Result Comment: 20 n g/mL CUTOFF *Unconfirmed Screening Result* Unconfirmed screening results are to be used only for medical treatment purposes. This test has not been approved by the FDA. MDMA Positive Abnormal NEGATIVE [facility] Comment on above: Result Comment: <100 0 ng/ml CUTOFF METHADONE Negative Normal NEGATIVE [facility] Comment on above: Result Comment: Meth adone Metabolite <100 ng/ml CUTOFF METHAMPHETAMINE Negative Normal NEGATIVE [facility] Comment on above: Result Comment: <500 ng/ml CUTOFF OPIATES Negative Normal NEGATIVE [facility] Comment on above: Result Comment: <300 ng/ml CUTOFF OXYCODONE Negative Normal NEGATIVE [facility] Comment on above: Result Comment: <100 ng/ml CUTOFF TRICYCLIC ANTIDEPRESSANTS Negative Normal NEGATIVE [facility] Comment on above: Result Comment: <100 0 ng/ml CUTOFF SCREEN: MRSA ONLY, NARES (IS OLATION SCREEN)on 09-21-2023 Interpretation and review of laboratory results Abnormal [facility] MRSA isol Org specific cx Ql (Nose) Negative NEGATIVE [facility] STAPHYOCOCCUS AUREUS BY PCR Positive Abnormal NEGATIVE [facility] Comment on above: TESTING PERFORMED BY PCR [facility] TOXICOLOGY DRUG SCREEN, URIN Harpreet 09-21-2023 Amphetamine (U) [Mass/Vol] Negative NEGATIVE NG/ML [facility] Comment on above: <500 ng/ml CUTOFF Barbiturates Screen Ql (U) Negative NEGATIVE NG/ML [facility] Comment on above: <200 ng/ml CUTOFF Benzodiazepines Ql (U) Positive Abnormal NEGAT RAJAN NG/ML [facility] Comment on above: <200 ng/ml CUTOFF *Unconfirmed Screening Result* Unconfirmed screening results are to be used only for medical treatment purposes. Benzoylecgonine Ql (U) Negative NEGAT RAJAN NG/ML [facility] Comment on above: <150 ng/ml CUTOFF Buprenorphine Ql (U) Negative NEGATIV E NG/ML [facility] Comment on above: <12.5 ng/ml CUTOFF Cannabinoids Screen Ql (U) Negative NEGATIVE NG/ML [facility] Comment on above: <50 ng/ml CUTOFF Fentanyl Negative NEGATIVE NG/ML [facility] Comment on above: 20 ng/mL CUTOFF *Unconfirmed Screening Result* Unconfirmed screening results are to be used only for medical treatment purposes. This test has not been approved by the FDA. Interpretation and review of laboratory results Abnormal [facility] Methadone Screen Ql (U) Negative NEGATIVE NG/ML [facility] Comment on above: Methadone Metabolite <100 ng/ml CUTOFF Methamphetamine (U) [Mass/Vol] Negative NEGATIVE NG/ML [facility] Comment on above: <500 ng/ml CUTOFF Methylenedioxymethamph etamine Ql (Unsp spec) Positive Abnormal NEGATIVE NG/ML [facility] Comment on above: <1000 ng/ml CUTOFF Opiates Screen Ql (U) Negative NEGATI VE NG/ML [facility] Comment on above: <300 ng/ml CUTOFF oxyCODONE Ql (U) Negative NEGATIVE NG/ML [facility] Comment on above: <100 ng/ml CUTOFF Tricyclic antidepressants Screen Ql (U) Negative NEGATIVE NG/ML [facility] Comment on above: <1000 ng/ml CUTOFF [facility] URINALYSIS, MACROon 09-21-20 23 Bilirubin Ql (U) Negative NEGATIVE [facility] Clarity (U) CLEAR CLEAR [facility] Color (U) YELLOW YELLOW [facility] Glucose Test strip (U) [Mass/Vol] 500 mg/dl Abnormal NEGATIVE [facility] Hemoglobin Ql (U) MODERATE Abnormal NEGATIVE [facility] Ketones (U) [Mass/Vol] 15 mg/dL [facility] Leukocyte esterase Test strip Ql (U) Negative NEGATIVE [facility] Nitrite Ql (U) Negative NEGATIVE [facility] pH (U) 5.5 [pH] 5.0 - 7.0 [facility] Protein Ql (U) >300 Abnormal NEGATIVE mg/dl [facility] Specific gravity (U) [Rel density] >1.030 High 1.010 - 1.025 [facility] Urobilinogen (U) [Mass/Vol] 0.2 mg/dL [facility] URINE CULTUREon 09-21-2023 Bacteria identified Cx Nom (U) SPECIMEN DESCRIPTION URINE - OTHER CULTURE NO GROWTH 2 DAYS * Result Note: Testing performed at [place] [address] * REPORT STATUS 09/23/2023 * Result Note: FINAL * Normal [facility] Comment on above: Performed By: #### A URNC #### [place] [address] Testing [place] [address] URINE MACROSCOPICon 09-21-20 23 Bilirubin Ql (U) Negative Normal NEGATIVE [facility] Clarity (U) CLEAR Normal CLEAR [facility] Color (U) YELLOW Normal YELLOW [facility] Glucose Ql (U) 500 mg/dl Abnormal NEGATIVE [facility] pH (U) 5.5 [pH] Normal 5.0-7.0 [facility] URINE HEMOGLOBIN MODERATE Abnormal NEGATIVE [facility] URINE KETONE 15 mg/dl Abnormal NEGATIVE [facility] URINE LEUKOTEST Negative Normal NEGATIVE [facility] URINE NITRATES Negative Normal NEGATIVE [facility] URINE SPEC GRAVITY >1.030 High 1.010-1.025 [facility] URINE TOTAL PROTEIN >300 Abnormal NEGATIVE [facility] Urobilinogen Qn (U) 0.2 {Rachana'U}/dL Normal 0.2-1.0 [facility] URINE MICROSCOPICon 09-21-20 23 BACTERIA TRACE Abnormal NEGATIVE [facility] CASTS NONE Normal NONE [facility] CRYSTAL NONE Normal NONE [facility] Epithelial cells LM Ql (Urine sed) NONE Normal [facility] Mucus Ql (Urine sed) Negative Normal NEGATIVE [facility] URINE COMMENT REFLEX CULTURE PER ESTABLISHED CRITERIA. Normal [facility] URINE RBC'S 1 TO 5 Normal NEGATIVE [facility] URINE WBC'S Negative Normal NEGATIVE [facility] Bacteria LM.HPF (Urine sed) [#/Area] TRACE Abnormal NEGATIVE [facility] Casts LM.LPF (Urine sed) [#/Area] NONE NONE /LPF [facility] Crystals LM Nom (Urine sed) NONE NONE [facility] Epithelial cells LM Ql (Urine sed) NONE /HPF [facility] Mucus Ql (Urine sed) Negative NEGATIVE [facility] RBC LM.HPF (Urine sed) [#/Area] 1 TO 5 NEGATIVE /HPF [facility] Urine sediment comments LM Everardo (Urine sed) REFLEX CULTURE PER ESTABLISHED CRITERIA. [facility] WBC LM.HPF (Urine sed) [#/Area] Negative NEGATIVE /HPF [facility] VENTILATOR SETTINGSon 2022 F RATE 16 breaths/minute Normal [facility] fiO2 100 % Normal [facility] PEEP 5 cmH2O Normal [facility] VENT SETTING [facility] Normal [facility] [place] 500 cc [facility] BIPAP AndOr CPAP setting Ventilator [facility] Oxygen/Inspired gas setting [Volume Fraction] Ventilator 100 % [facility] Positive end expiratory pressure setting Ventilator 5 cmH2O [facility] Respiratory rate 16 /min breaths/min u te [facility] Tidal volume setting Ventilator 500 cc [facility] XR CHEST AP PORTABLEon 09-21 XR CHEST AP PORTABLE EXAM: XR CHEST AP PORTABLE REASON FOR EXAM: ET placement TECHNIQUE: Single frontal view COMPARISON: None FINDINGS: Endotracheal tube terminates 3.4 cm above the ravindra. No pneumothorax, pleural effusion, or focal consolidation. The cardiac silhouette is not enlarged. IMPRESSION: Appropriate positioning of the endotracheal tube. No acute cardiopulmonary abnormality. Normal [facility] Diabetic Office/Clinic Noteo n 05-13-2023 Diabetic [...] repeat rule of 15's. -Continue to eat [phone] calories per day. Best to consume calories [...] blood sugar readings and call these to [phone] in 2 weeks for myself to review. Call sooner if you're experiencing frequent blood sugars <60 or >350. -Repeat A1c and appointment with myself in 3 months or sooner if needed Jarod Aviles CNP [facility] [address], [address] [place] [address] Time Spent with the Patient I have [...] 0.5 mg, Subcutaneous, Weekly, 11 refills [place], See Instructions, 11 refills Toujeo Max SoloStar 300 units/mL subcutaneous solution, See Instructions, 11 refills Allergies No Known Medication Allergies Social History Alcohol Never Tobacco N (more content not included)... Normal [facility] Diabetic Office/Clinic Noteo n 02-11-2023 Diabetic [...] heart attack, stroke and limb amputation -Eat 1968-6625 calories per day or less using a [...] plate starchy vegetables or grains. Recommend using CodersClan or similar type pat to track daily [...] range > (more content not included)... Normal [facility] CBC AUTO DIFFon 12-28-2022 BASO # 0.0 103/ul Normal 0.0-0.1 [facility] Comment on above: Performed By: #### P OCGLUC #### [facility] [address] [place] [address] [address] Karina Heath Basophils/100 WBC (Bld) 0.6 % Normal 0.2-2.0 [facility] Comment on above: Performed By: #### P OCGLUC #### [facility] [address] [place], [place] [address] Dr. Karina Heath EO # 0.1 103/ul Normal 0.0-0.7 [facility] Comment on above: Performed By: #### P OCGLUC #### [facility] [address] [place] [address] Dr. Karina Heath Eosinophils/100 WBC (Bld) 1.1 % Normal 0.9-7.0 [facility] Comment on above: Performed By: #### P OCGLUC #### [facility] [address] [place] [address] Dr. Karina Heath Erythrocyte distribution width (RBC) [Ratio] 13.5 % Normal 11.0-15.0 [facility] Comment on above: Performed By: #### P OCGLUC #### [facility] [address] [place] [address] Dr. Karina Heath Hematocrit (Bld) [Volume fraction] 35.2 % Critically low 42.0-54.0 [facility] Comment on above: Performed By: #### P OCGLUC #### [facility] [address] [place] [address] Dr. Karina Heath Hemoglobin (Bld) [Mass/Vol] 12.0 g/dL Critically low 14.0-18.0 [facility] Comment on above: Performed By: #### P OCGLUC #### [facility] [address] [place] [address] Dr. Karina Heath IG # 0.02 10e3/ul Normal 0.00-0.03 [facility] Comment on above: Performed By: #### P OCGLUC #### [facility] [address] [place] [address] Dr. Karina Heath IG % 0.3 % Normal 0.0-0.5 [facility] Comment on above: Performed By: #### P OCGLUC #### [facility] [address] [place] [address] Dr. Karina Heath LYMPH # 1.7 103/ul Normal 1.2-3.8 [facility] Comment on above: Performed By: #### P OCGLUC #### [facility] [address] [place] [address] Dr. Karina Heath Lymphocytes/100 WBC (Bld) 26.3 % Normal 20.5-60.0 [facility] Comment on above: Performed By: #### P OCGLUC #### [facility] [address] [place] [address] Dr. Karina Heath MANUAL DIFF REQ NO Normal [facility] Comment on above: Performed By: #### P OCGLUC #### [facility] [address] [place] [address] Dr. Karina Heath MCH (RBC) [Entitic mass] 28.6 pg Normal 25.9-34.0 [facility] Comment on above: Performed By: #### P OCGLUC #### [facility] [address] [place] [address] Dr. Karina Heath MCHC (RBC) [Mass/Vol] 34.1 g/dL Normal 29.9-35.2 [facility] Comment on above: Performed By: #### P OCGLUC #### [facility] [address] [place] [address] Dr. Karina Heath MCV (RBC) [Entitic vol] 83.8 fL Normal 80.0-94.0 [facility] Comment on above: Performed By: #### P OCGLUC #### [facility] [address] [place] [address] Dr. Karina Heath MONO # 0.5 103/ul Normal 0.3-0.8 [facility] Comment on above: Performed By: #### P OCGLUC #### [facility] [address] [place] [address] Dr. Karina Heath Monocytes/100 WBC (Bld) 7.0 % Normal 1.7-12.0 [facility] Comment on above: Performed By: #### P OCGLUC #### [facility] [address] [place] [address] Dr. Karina Heath NEUT # 4.2 103/ul Normal 1.4-6.5 [facility] Comment on above: Performed By: #### P OCGLUC #### [facility] [address] [place] [address] Dr. Karina Heath Neutrophils/100 WBC (Bld) 64.7 % Normal 43.0-75.0 [facility] Comment on above: Performed By: #### P OCGLUC #### [facility] [address] [address] [address] Karina Heath Platelet mean volume (Bld) [Entitic vol] 10.3 fL Normal 9.5-13.5 [facility] Comment on above: Performed By: #### P OCGLUC #### [facility] [address] [address] [address] Karina Heath PLT 189 103/ul Normal 150-450 [facility] Comment on above: Performed By: #### P OCGLUC #### [facility] [address] [address] [address] Karina Heath RBC 4.20 106/ul Critically low 4.70-6.10 [facility] Comment on above: Performed By: #### P OCGLUC #### [facility] [address] [address] [address] Karina Heath WBC 6.4 103/ul Normal 4.0-11.0 [facility] Comment on above: Performed By: #### P OCGLUC #### [facility] [address] [place] [address] Dr. Karina Heath ECHOCARDIO M/2D COMPLETEon 0 12-28-2022 ECHOCARDIO M/2D COMPLETE Patient: ORTIZ GORMAN Exam Date: 12/28/2022 : 1975 Gender:M Ordering : DR VINCENT WINTERS . Admission #: [id number] Family : Order #: [id number] CLICK HERE TO VIEW EXAM ECHOCARDIOGRAM REPORT [...] Sibley M.D. on 12/28/2022 at 17:50 Normal [facility] POINT OF CARE GLUCOSEon 12-15 Glucose [Mass/Vol] 229 mg/dL Critically high 74-106 [facility] Comment on above: Performed By: #### P OCGLUC #### [facility] [address] [address] [address] Karina Heath Glucose [Mass/Vol] 171 mg/dL Critically high -106 [facility] Comment on above: Performed By: #### C VDTBH #### [facility] [address] [address] [address] Karina Heath Glucose [Mass/Vol] 242 mg/dL Critically high [facility]106 [facility] Comment on above: Performed By: #### C VDTBH #### [facility] [address] [address] [address] Karina Heath PROF 14(COMP METB)on 023 Albumin [Mass/Vol] 3.0 g/dL Critically low 3.4-5.0 [facility] Comment on above: Performed By: #### P OCGLUC #### [facility] [address] [address] [address] Karina Heath Albumin/Globulin [Mass ratio] 0.9 {ratio} [facility] Comment on above: Performed By: #### P OCGLUC #### [facility] [address] [address] [address] Karina Heath ALP [Catalytic activity/Vol] 79 U/L Normal 46-116 [facility] Comment on above: Performed By: #### P OCGLUC #### [facility] [address] [address] [address] Karina Heath ALT [Catalytic activity/Vol] 27 U/L Normal 16-63 [facility] Comment on above: Performed By: #### P OCGLUC #### [facility] [address] [address] [address] Karina Heath Anion gap [Moles/Vol] 9.4 mmol/L Normal [facility] Comment on above: Performed By: #### P OCGLUC #### [facility] [address] [address] [address] Karina Heath AST [Catalytic activity/Vol] 21 U/L Normal 15-37 [facility] Comment on above: Performed By: #### P OCGLUC #### [facility] [address] [address] [address] Karina Heath Bilirubin [Mass/Vol] 0.2 mg/dL Normal 0.2-1.0 [facility] Comment on above: Performed By: #### P OCGLUC #### [facility] [address] [address] [address] Karina Heath Calcium [Mass/Vol] 8.6 mg/dL Normal 8.5-10.1 [facility] Comment on above: Performed By: #### P OCGLUC #### [facility] [address] [address] [address] Karina Heath Chloride [Moles/Vol] 104 mmol/L Normal 98-107 [facility] Comment on above: Performed By: #### P OCGLUC #### [facility] [address] [address] [address] Karina Heath CO2 [Moles/Vol] 26.9 mmol/L Normal 21.0-32.0 [facility] Comment on above: Performed By: #### P OCGLUC #### [facility] [address] [address] [address] Karina Heath Creatinine [Mass/Vol] 0.95 mg/dL Normal 0.70-1.30 [facility] Comment on above: Performed By: #### P OCGLUC #### [facility] [address] [address] [address] Karina Heath EGFR-AF ENGLISH >60 Normal >=60 [facility] Comment on above: Performed By: #### P OCGLUC #### [facility] [address] [address] [address] Karina Heath EGFR-NON AF ENGLISH >60 Normal >=60 [facility] Comment on above: Performed By: #### P OCGLUC #### [facility] [address] [address] [address] Karina Heath Globulin (S) [Mass/Vol] 3.2 g/dL Normal [facility] Comment on above: Performed By: #### P OCGLUC #### [facility] [address] [address] [address] Karina Heath Glucose [Mass/Vol] 258 mg/dL Critically high 74-106 [facility] Comment on above: Performed By: #### P OCGLUC #### [facility] [address] [address] [address] Karina Heath Potassium [Moles/Vol] 3.3 mmol/L Critically low 3.5-5.1 [facility] Comment on above: Performed By: #### P OCGLUC #### [facility] [address] [place] [address] Dr. Karina Heath Protein [Mass/Vol] 6.2 g/dL Critically low 6.4-8.2 [facility] Comment on above: Performed By: #### P OCGLUC #### [facility] [address] [address] [address] Karina Heath Sodium [Moles/Vol] 137 mmol/L Normal 136-145 [facility] Comment on above: Performed By: #### P OCGLUC #### [facility] [address] [place] [address] Dr. Karina Heath Urea nitrogen [Mass/Vol] 16.0 mg/dL Normal 7.0-18.0 [facility] Comment on above: Performed By: #### P OCGLUC #### [facility] [address] [address] [address] Karina Heath Urea nitrogen/Creatinine [Mass ratio] 16.8 mg/mg Normal [facility] Comment on above: Performed By: #### P OCGLUC #### [facility] [address] [address] [address] Karina Heath CBC AUTO DIFFon 12-27-2022 BASO # 0.0 103/ul Normal 0.0-0.1 [facility] Comment on above: Performed By: #### C BC #### [facility] [address] [address] [address] Karina Heath Basophils/100 WBC (Bld) 0.5 % Normal 0.2-2.0 [facility] Comment on above: Performed By: #### C BC #### [facility] [address] [address] [address] Karina Heath EO # 0.1 103/ul Normal 0.0-0.7 [facility] Comment on above: Performed By: #### C BC #### [facility] [address] [place] [address] Dr. Karina Heath Eosinophils/100 WBC (Bld) 0.8 % Critically low 0.9-7.0 [facility] Comment on above: Performed By: #### C BC #### [facility] [address] [place] [address] Dr. Karina Heath Erythrocyte distribution width (RBC) [Ratio] 13.2 % Normal 11.0-15.0 [facility] Comment on above: Performed By: #### C BC #### [facility] [address] [place] [address] Dr. Karina Heath Hematocrit (Bld) [Volume fraction] 37.1 % Critically low 42.0-54.0 [facility] Comment on above: Performed By: #### C BC #### [facility] [address] [place] [address] Dr. Karina Heath Hemoglobin (Bld) [Mass/Vol] 13.0 g/dL Critically low 14.0-18.0 [facility] Comment on above: Performed By: #### C BC #### [facility] [address] [place] [address] Dr. Karina Heath IG # 0.03 10e3/ul Normal 0.00-0.03 [facility] Comment on above: Performed By: #### C BC #### [facility] [address] [place] [address] Dr. Karina Heath IG % 0.4 % Normal 0.0-0.5 [facility] Comment on above: Performed By: #### C BC #### [facility] [address] [place] [address] Dr. Karina Heath LYMPH # 1.2 103/ul Normal 1.2-3.8 [facility] Comment on above: Performed By: #### C BC #### [facility] [address] [place] [address] Dr. Karina Heath Lymphocytes/100 WBC (Bld) 15.3 % Critically low 20.5-60.0 [facility] Comment on above: Performed By: #### C BC #### [facility] [address] [place] [address] Dr. Karina Heath MANUAL DIFF REQ NO Normal [facility] Comment on above: Performed By: #### C BC #### [facility] [address] [place] [address] Dr. Karina Heath MCH (RBC) [Entitic mass] 28.7 pg Normal 25.9-34.0 [facility] Comment on above: Performed By: #### C BC #### [facility] [address] [place] [address] Dr. Karina Heath MCHC (RBC) [Mass/Vol] 35.0 g/dL Normal 29.9-35.2 [facility] Comment on above: Performed By: #### C BC #### [facility] [address] [place] [address] Dr. Karina Heath MCV (RBC) [Entitic vol] 81.9 fL Normal 80.0-94.0 [facility] Comment on above: Performed By: #### C BC #### [facility] [address] [place] [address] Dr. Karina Heath MONO # 0.6 103/ul Normal 0.3-0.8 [facility] Comment on above: Performed By: #### C BC #### [facility] [address] [place] [address] Dr. Karina Heath Monocytes/100 WBC (Bld) 7.1 % Normal 1.7-12.0 [facility] Comment on above: Performed By: #### C BC #### [facility] [address] [place] [address] Dr. Karina Heath NEUT # 5.8 103/ul Normal 1.4-6.5 [facility] Comment on above: Performed By: #### C BC #### [facility] [address] [address] [address] Karina Heath Neutrophils/100 WBC (Bld) 75.9 % Critically high 43.0-75.0 [facility] Comment on above: Performed By: #### C BC #### [facility] [address] [place] [address] Dr. Karina Heath Platelet mean volume (Bld) [Entitic vol] 9.6 fL Normal 9.5-13.5 [facility] Comment on above: Performed By: #### C BC #### [facility] [address] [place] [address] Dr. Karina Heath PLT 200 103/ul Normal 150-450 [facility] Comment on above: Performed By: #### C BC #### [facility] [address] [place] [address] Dr. Karina Heath RBC 4.53 106/ul Critically low 4.70-6.[address] [facility] Comment on above: Performed By: #### C BC #### [facility] [address] [place] [address] Dr. Karina Heath WBC 7.7 103/ul Normal 4.0-11.0 [facility] Comment on above: Performed By: #### C BC #### [facility] [address] [place] [address] STROKE HEAD WOon [...] ANNI NOYOLA Date: 2022-12-27 14:03 Normal [facility] CTA HEAD WO W CONon 12-28-19 [...] JACOB VARGAS Date: 2022-12-27 14:55 Normal [facility] Covid-19 PCR (CVDTB)on 12-15 SARS-CoV-2 (COVID-19) RNA MEETA+probe Ql (Unsp spec) Not detected Normal NOT DETECTED [facility] Comment on above: Result Comment: When [...] for this test is supported by the [place] of [employer] and Human Service's declaration that [...] used). Performed By: #### C VDTBH #### [facility] [address] [place] [address] Dr. Karina Heath DRUG SCREEN RAPID (URINE)on 12-27-2022 AMP Negative Normal NEGATIVE [facility] Comment on above: Performed By: #### C BC #### [facility] [address] [place] [address] Dr. Karina Heath BAR Negative Normal NEGATIVE [facility] Comment on above: Performed By: #### C BC #### [facility] [address] [place] [address] Dr. Karina Heath BUP Negative Normal NEGATIVE [facility] Comment on above: Performed By: #### C BC #### [facility] [address] [place] [address] Dr. Karina Heath BZO Negative Normal NEGATIVE [facility] Comment on above: Performed By: #### C BC #### [facility] [address] [place] [address] Dr. Karina Heath VALERY Negative Normal NEGATIVE [facility] Comment on above: Performed By: #### C BC #### [facility] [address] [place] [address] Dr. Karina Heath CUT-OFFS SEE BELOW Normal [facility] Comment on above: Result Comment: AMP [...] ng/mL Performed By: #### C BC #### [facility] [address] [place] [address] Dr. Karina Heath DRUG CUT HEADER DRUG CLASS TEST SYST EM CUT-OFF CONCENTRATIONS ARE FOLLOWS: Normal [facility] Comment on above: Performed By: #### C BC #### [facility] [address] [place] [address] Dr. Karina Heath mAMP Negative Normal NEGATIVE [facility] Comment on above: Performed By: #### C BC #### [facility] [address] [place] [address] Dr. Karina Heath MTD Negative Normal NEGATIVE [facility] Comment on above: Performed By: #### C BC #### [facility] [address] [place] [address] Dr. Karina Heath OPI Negative Normal NEGATIVE [facility] Comment on above: Performed By: #### C BC #### [facility] [address] [place] [address] Dr. Karina Heath OXY Negative Normal NEGATIVE [facility] Comment on above: Performed By: #### C BC #### [facility] [address] [place] [address] Dr. Karina Heath PCP Negative Normal NEGATIVE [facility] Comment on above: Performed By: #### C BC #### [facility] [address] [place] [address] Dr. Karina Heath PPX Negative Normal NEGATIVE [facility] Comment on above: Performed By: #### C BC #### [facility] [address] [place] [address] Dr. Karina Heath TCA Negative Normal NEGATIVE [facility] Comment on above: Performed By: #### C BC #### [facility] [address] [place] [address] Dr. Karina Heath THC Negative Normal NEGATIVE [facility] Comment on above: Performed By: #### C BC #### [facility] [address] [address] [address] Karina HERNDON URINE PROFILEon 3 Bilirubin Ql (U) Negative Normal NEGATIVE [facility] Comment on above: Performed By: #### P OCGLUC #### [facility] [address] [place] [address] Dr. Karina Heath Clarity (U) CLEAR Normal CLEAR [facility] Comment on above: Performed By: #### P OCGLUC #### [facility] [address] [place] [address] Dr. Karina Heath Color (U) LT. YELLOW Normal YELLOW [facility] Comment on above: Performed By: #### P OCGLUC #### [facility] [address] [place] [address] Dr. Karina GLASGOW A micrscopic examination will be performed if indicated. Normal [facility] Comment on above: Performed By: #### P OCGLUC #### [facility] [address] [place] [address] Dr. Karina Heath Glucose Ql (U) >1000 Abnormal NEGATIVE [facility] Comment on above: Performed By: #### P OCGLUC #### [facility] [address] [place] [address] Dr. Karina Heath Hemoglobin Ql (U) TRACE-INTACT Abnormal NEGATIVE [facility] Comment on above: Performed By: #### P OCGLUC #### [facility] [address] [address] [address] Karina Heath Ketones Ql (U) TRACE Abnormal NEGATIVE [facility] Comment on above: Performed By: #### P OCGLUC #### [facility] [address] [place] [address] Dr. Karina Heath LEUKOCYTES Negative Normal NEGATIVE [facility] Comment on above: Performed By: #### P OCGLUC #### [facility] [address] [place] [address] Dr. Karina Heath Nitrite Ql (U) Negative Normal NEGATIVE [facility] Comment on above: Performed By: #### P OCGLUC #### [facility] [address] [address] [address] Karina Heath pH (U) 7.0 [pH] Normal 5-9 [facility] Comment on above: Performed By: #### P OCGLUC #### [facility] [address] [address] [address] Karina Heath Protein (U) [Mass/Vol] 100 mg/dL Abnormal NEGAT RAJAN/ TRACE [facility] Comment on above: Performed By: #### P OCGLUC #### [facility] [address] [place] [address] Dr. Karina Heath SPEC GRAVITY 1.010 Normal 1.005-<=1.02 5 [facility] Comment on above: Performed By: #### P OCGLUC #### [facility] [address] [place] [address] Dr. Karina Heath UR MICRO IND INDICATED Normal [facility] Comment on above: Performed By: #### P OCGLUC #### [facility] [address] [place] [address] Dr. Karina Heath Urobilinogen Qn (U) 0.2 {Rachana'U}/dL Normal 0.2 - 1. 0 [facility] Comment on above: Performed By: #### P OCGLUC #### [facility] [address] [place] [address] Dr. Karina Heath POINT OF CARE GLUCOSEon 12-15 Glucose [Mass/Vol] 233 mg/dL Critically high 74-106 [facility] Comment on above: Performed By: #### P OCGLUC #### [facility] [address] [place] [address] Dr. Karina Heath Glucose [Mass/Vol] 199 mg/dL Critically high 74-106 [facility] Comment on above: Performed By: #### P OCGLUC #### [facility] [address] [place] [address] Dr. Karina Heath PROF 14(COMP METB)on 023 Albumin [Mass/Vol] 3.4 g/dL Normal 3.4-5.0 [facility] Comment on above: Performed By: #### P OCGLUC #### [facility] [address] [address] [address] Karina Heath Albumin/Globulin [Mass ratio] 1.0 {ratio} Normal [facility] Comment on above: Performed By: #### P OCGLUC #### [facility] [address] [address] [address] Karina Heath ALP [Catalytic activity/Vol] 100 U/L Normal 46-116 [facility] Comment on above: Performed By: #### P OCGLUC #### [facility] [address] [address] [address] Karina Heath ALT [Catalytic activity/Vol] 31 U/L Normal 16-63 [facility] Comment on above: Performed By: #### P OCGLUC #### [facility] [address] [address] [address] Karina Heath Anion gap [Moles/Vol] 10.5 mmol/L Normal [facility] Comment on above: Performed By: #### P OCGLUC #### [facility] [address] [address] [address] Karina Heath AST [Catalytic activity/Vol] 18 U/L Normal 15-37 [facility] Comment on above: Performed By: #### P OCGLUC #### [facility] [address] [address] [address] Karina Heath Bilirubin [Mass/Vol] 0.2 mg/dL Normal 0.2-1.0 [facility] Comment on above: Performed By: #### P OCGLUC #### [facility] [address] [address] [address] Karina Heath Calcium [Mass/Vol] 9.0 mg/dL Normal 8.5-10.1 [facility] Comment on above: Performed By: #### P OCGLUC #### [facility] [address] [address] [address] Karina Heath Chloride [Moles/Vol] 96 mmol/L Critically low 98-107 [facility] Comment on above: Performed By: #### P OCGLUC #### [facility] [address] [address] [address] Karina Heath CO2 [Moles/Vol] 29.1 mmol/L Normal 21.0-32.0 [facility] Comment on above: Performed By: #### P OCGLUC #### [facility] [address] [address] [address] Karina Heath Creatinine [Mass/Vol] 0.91 mg/dL Normal 0.70-1.30 [facility] Comment on above: Performed By: #### P OCGLUC #### [facility] [address] [address] [address] Karina Heath EGFR-AF ENGLISH >60 Normal >=60 [facility] Comment on above: Performed By: #### P OCGLUC #### [facility] [address] [address] [address] Karina Heath EGFR-NON AF ENGLISH >60 Normal >=60 [facility] Comment on above: Performed By: #### P OCGLUC #### [facility] [address] [address] [address] Karina Heath Globulin (S) [Mass/Vol] 3.5 g/dL Normal [facility] Comment on above: Performed By: #### P OCGLUC #### [facility] [address] [address] [address] Karina Heath Glucose [Mass/Vol] 214 mg/dL Critically high 74-106 [facility] Comment on above: Performed By: #### P OCGLUC #### [facility] [address] [address] [address] Karina Heath Potassium [Moles/Vol] 3.6 mmol/L Normal 3.5-5.1 [facility] Comment on above: Performed By: #### P OCGLUC #### [facility] [address] [address] [address] Karina Heath Protein [Mass/Vol] 6.9 g/dL Normal 6.4-8.2 The [facility] Comment on above: Performed By: #### P OCGLUC #### [facility] [address] [place] [address] Dr. Karina Heath Sodium [Moles/Vol] 132 mmol/L Critically low 136-145 [facility] Comment on above: Performed By: #### P OCGLUC #### [facility] [address] [place] [address] Dr. Karina Heath Urea nitrogen [Mass/Vol] 27.0 mg/dL Critically high 7.0-18.0 [facility] Comment on above: Performed By: #### P OCGLUC #### [facility] [address] [place] [address] Dr. Karina Heath Urea nitrogen/Creatinine [Mass ratio] 29.7 mg/mg Normal [facility] Comment on above: Performed By: #### P OCGLUC #### [facility] [address] [place] [address] Dr. Karina Heath PROTIMEon 12-27-2022 INR Coag (PPP) [Relative time] {INR} Normal [facility] Comment on above: Performed By: #### P TT, PT #### [facility] [address] [place] [address] Dr. Karina Heath INR GUIDELINES SEE BELOW Normal [facility] Comment on above: Result Comment: LINDA RED INR: 2.0 - 3.0 CONDITIONS NOT LISTED BELOW 2.5 - 3.5 FOR PROSTHETIC HEART VALVE REPLACEMENT 2.5 - 3.5 RECURRENT THROMBOSIS Performed By: #### P TT, PT #### [facility] [address] [place] [address] Dr. Karina Heath PT Coag (PPP) [Time] 9.8 s Normal 9.0-11.6 [facility] Comment on above: Performed By: #### P TT, PT #### [facility] [address] [place] [address] Dr. Karina Heath PTTon 12-27-2022 aPTT Coag (Bld) [Time] 24.3 s Normal 22.3-36.2 [facility] Comment on above: Performed By: #### P TT, PT #### [facility] [address] [place] [address] Dr. Karina Heath TROPONIN, HIGH SENSITIVITYon 12-27-2022 HSTROP 5.5 pg/mL Normal 4.0-76.1 [facility] Comment on above: Result Comment: CUT- OFF POINTS HAVE BEEN ESTABLISHED BASED ON THE FOURTH UNIVERSAL DEFINITIONS OF MYOCARDIAL INFARCTION. THE UPPER REFERENCE LIMIT (URL) OF TROPONIN, DEFINED THE 99TH PERCENTILE OF cTnI DISTRIBUTION IN A REFERENCE POPULATION, HAS BEEN CONFIRMED THE DECISION THRESHOLD FOR [place] DIAGNOSIS. Performed By: #### P OCGLUC #### [facility] [address] [place] [address] Dr. Karina Heath TSHon 12-27-2022 TSH 0.848 uIU/mL Normal 0.358-3.740 [facility] Comment on above: Performed By: #### P OCGLUC #### [facility] [address] [place] [address] Dr. Karina Heath URINE MICROSCOPIC ONLYon BACTERIA NONE SEEN Normal NONE SEEN [facility] Comment on above: Performed By: #### P OCGLUC #### [facility] [address] [place] [address] Dr. Karina Heath Bacteria identified Cx Nom (U) NOT INDICATED Normal [facility] Comment on above: Performed By: #### P OCGLUC #### [facility] [address] [place] [address] Dr. Karina Heath CAST NONE SEEN Normal NONE SEEN [facility] Comment on above: Performed By: #### P OCGLUC #### [facility] [address] [place] [address] Dr. Karina Heath Crystals LM Nom (Urine sed) NONE SEEN Normal NONE SEEN [facility] Comment on above: Performed By: #### P OCGLUC #### [facility] [address] [place] [address] Dr. Karina Heath Epithelial cells LM Ql (Urine sed) NONE SEEN Normal NONE SEEN /RARE [facility] Comment on above: Performed By: #### P OCGLUC #### [facility] [address] [place] [address] Dr. Karina Heath MUCOUS NONE SEEN Normal NONE SEEN [facility] Comment on above: Performed By: #### P OCGLUC #### [facility] [address] [address] [address] Karina Heath RBC 0-2 Normal 0-2 [facility] Comment on above: Performed By: #### P OCGLUC #### [facility] [address] [address] [address] Karina Heath WBC NONE SEEN Normal NONE SEEN [facility] Comment on above: Performed By: #### P OCGLUC #### [facility] [address] [address] [address] Karina Heath XR CHEST 1 Von 12-27-2022 XR CHEST 1 V EXAM: XR CHEST 1 V HISTORY: Aphasia COMPARISON: None. TECHNIQUE: AP upright portable. FINDINGS: Cardiomediastinal silhouette and pulmonary vascularity are within normal limits. Lungs and the costophrenic angles are clear. IMPRESSION: No acute cardiopulmonary disease. Electronically authenticated by: ANNI NOYOLA Date: 2022-12-27 14:03 Normal [facility] ACID FAST SMEAR AND CXon Acid Fast Culture Negative Normal [facility] Comment on above: Result Comment: No a martin fast bacilli isolated after 6 weeks. Performed By: #### A FB #### [facility] [address] [place] [address] Dr. Karina Heath Acid Fast Smear Negative Normal [facility] Comment on above: Performed By: #### A FB #### [facility] [address] [place] [address] Dr. Karina Heath AFB Specimen Processing Direct Inoculation Normal [facility] Comment on above: Performed By: #### A FB #### [facility] [address] [place] [address] Dr. Karina Heath FUNGAL CULTUREon 11-12-2022 Fungus (Mycology) Culture Final report Normal [facility] Comment on above: Performed By: #### C BC #### [facility] [address] [place] [address] Dr. Karina Heath Fungus Stain Final report Normal [facility] Comment on above: Performed By: #### C BC #### [facility] [address] [place] [address] Dr. Karina Heath Result 1 Comment Normal [facility] Comment on above: Result Comment: MYNOR/ Calcofluor preparation: no fungus observed. Performed By: #### C BC #### [facility] [address] [place] [address] Dr. Karina Heath Result Comment: No y [...] F Trimethoprim/Sulfametho xazole <=10 S F Normal [facility] Comment on above: Performed By: #### P OCGLUC #### [facility] [address] [place] [address] Dr. Karina Heath CBC AUTO DIFFon 10-15-2022 BASO # 0.0 103/ul Normal 0.0-0.1 [facility] Comment on above: Performed By: #### C BC #### [facility] [address] [place] [address] Dr. Karina Heath Basophils/100 WBC (Bld) 0.5 % Normal 0.2-2.0 [facility] Comment on above: Performed By: #### C BC #### [facility] [address] [place] [address] Dr. Karina Heath EO # 0.1 103/ul Normal 0.0-0.7 [facility] Comment on above: Performed By: #### C BC #### [facility] [address] [place] [address] Dr. Karina Heath Eosinophils/100 WBC (Bld) 1.5 % Normal 0.9-7.0 [facility] Comment on above: Performed By: #### C BC #### [facility] [address] [place] [address] Dr. Karina Heath Erythrocyte distribution width (RBC) [Ratio] 12.4 % Normal 11.0-15.0 [facility] Comment on above: Performed By: #### C BC #### [facility] [address] [place] [address] Dr. Karina Heath Hematocrit (Bld) [Volume fraction] 33.1 % Critically low 42.0-54.0 [facility] Comment on above: Performed By: #### C BC #### [facility] [address] [place] [address] Dr. Karina Heath Hemoglobin (Bld) [Mass/Vol] 11.0 g/dL Critically low 14.0-18.0 [facility] Comment on above: Performed By: #### C BC #### [facility] [address] [place] [address] Dr. Karina Heath IG # 0.03 10e3/ul Normal 0.00-0.03 [facility] Comment on above: Performed By: #### C BC #### [facility] [address] [place] [address] Dr. Karina Heath IG % 0.5 % Normal 0.0-0.5 [facility] Comment on above: Performed By: #### C BC #### [facility] [address] [place] [address] Dr. Karina Heath LYMPH # 1.2 103/ul Normal 1.2-3.8 [facility] Comment on above: Performed By: #### C BC #### [facility] [address] [place] [address] Dr. Karina Heath Lymphocytes/100 WBC (Bld) 20.0 % Critically low 20.5-60.0 [facility] Comment on above: Performed By: #### C BC #### [facility] [address] [place] [address] Dr. Karina Heath MANUAL DIFF REQ NO Normal [facility] Comment on above: Performed By: #### C BC #### [facility] [address] [place] [address] Dr. Karina Heath MCH (RBC) [Entitic mass] 28.6 pg Normal 25.9-34.0 [facility] Comment on above: Performed By: #### C BC #### [facility] [address] [place] [address] Dr. Karina Heath MCHC (RBC) [Mass/Vol] 33.2 g/dL Normal 29.9-35.2 [facility] Comment on above: Performed By: #### C BC #### [facility] [address] [place] [address] Dr. Karina Heath MCV (RBC) [Entitic vol] 86.0 fL Normal 80.0-94.0 [facility] Comment on above: Performed By: #### C BC #### [facility] [address] [place] [address] Dr. Karina Heath MONO # 0.5 103/ul Normal 0.3-0.8 [facility] Comment on above: Performed By: #### C BC #### [facility] [address] [place] [address] Dr. Karina Heath Monocytes/100 WBC (Bld) 9.1 % Normal 1.7-12.0 [facility] Comment on above: Performed By: #### C BC #### [facility] [address] [place] [address] Dr. Karina Heath NEUT # 4.0 103/ul Normal 1.4-6.5 [facility] Comment on above: Performed By: #### C BC #### [facility] [address] [place] [address] Dr. Karina Heath Neutrophils/100 WBC (Bld) 68.4 % Normal 43.0-75.0 [facility] Comment on above: Performed By: #### C BC #### [facility] [address] [place] [address] Dr. Karina Heath Platelet mean volume (Bld) [Entitic vol] 9.2 fL Critically low 9.5-13.5 [facility] Comment on above: Performed By: #### C BC #### [facility] [address] [place] [address] Dr. Karina Heath PLT 214 103/ul Normal 150-450 [facility] Comment on above: Performed By: #### C BC #### [facility] [address] [place] [address] Dr. Karina Heath RBC 3.85 106/ul Critically low 4.70-6.10 [facility] Comment on above: Performed By: #### C BC #### [facility] [address] [place] [address] Dr. Karina Heath WBC 5.8 103/ul Normal 4.0-11.0 [facility] Comment on above: Performed By: #### C BC #### [facility] [address] [place] [address] Dr. Karina Heath CULTURE WOUNDon 10-15-2022 CULTURE [...] Trimethoprim/Sulfametho xazole <=10 S F Normal [facility] Comment on above: Performed By: #### W OUNDCX #### [facility] [address] [place] [address] Dr. Karina Heath POINT OF CARE GLUCOSEon 09-18 Glucose [Mass/Vol] 353 mg/dL Critically high 74-106 [facility] Comment on above: Performed By: #### C BC #### [facility] [address] [place] [address] Dr. Karina Heath Glucose [Mass/Vol] 363 mg/dL Critically high 74-106 [facility] Comment on above: Performed By: #### C BC #### [facility] [address] [place] [address] Dr. Karina Heath PROF CHEM 8 (BAS METB)on Anion gap [Moles/Vol] 12.0 mmol/L Normal [facility] Comment on above: Performed By: #### C VDTBH #### [facility] [address] [place] [address] Dr. Karina Heath Calcium [Mass/Vol] 8.4 mg/dL Critically low 8.5-10.1 [facility] Comment on above: Performed By: #### C VDTBH #### [facility] [address] [place] [address] Dr. Karina Heath Chloride [Moles/Vol] 98 mmol/L Normal 98-107 [facility] Comment on above: Performed By: #### C VDTBH #### [facility] [address] [place] [address] Dr. Karina Heath CO2 [Moles/Vol] 27.2 mmol/L Normal 21.0-32.0 [facility] Comment on above: Performed By: #### C VDTBH #### [facility] [address] [place] [address] Dr. Karina Heath Creatinine [Mass/Vol] 1.07 mg/dL Normal 0.70-1.30 [facility] Comment on above: Performed By: #### C VDTBH #### [facility] [address] [place] [address] Dr. Karina Heath EGFR-AF ENGLISH >60 Normal >=60 [facility] Comment on above: Performed By: #### C VDTBH #### [facility] [address] [place] [address] Dr. Karina Heath EGFR-NON AF ENGLISH >60 Normal >=60 [facility] Comment on above: Performed By: #### C VDTBH #### [facility] [address] [place] [address] Dr. Karina Heath Glucose [Mass/Vol] 355 mg/dL Critically high 74-106 T [facility] Comment on above: Performed By: #### C VDTBH #### [facility] [address] [place] [address] Dr. Karina Heath Potassium [Moles/Vol] 4.2 mmol/L Normal 3.5-5.1 [facility] Comment on above: Performed By: #### C VDTBH #### [facility] [address] [place] [address] Dr. Karina Heath Sodium [Moles/Vol] 133 mmol/L Critically low 136-145 [facility] Comment on above: Performed By: #### C VDTBH #### [facility] [address] [place] [address] Dr. Karina Heath Urea nitrogen [Mass/Vol] 17.0 mg/dL Normal 7.0-18.0 [facility] Comment on above: Performed By: #### C VDTBH #### [facility] [address] [place] [address] Dr. Karina Heath Urea nitrogen/Creatinine [Mass ratio] 15.9 mg/mg Normal [facility] Comment on above: Performed By: #### C VDTBH #### [facility] [address] [place] [address] Dr. Karina Heath PTTon 10-15-2022 aPTT Coag (Bld) [Time] 27.3 s Normal 22.3-36.2 [facility] Comment on above: Performed By: #### C VDTBH #### [facility] [address] [place] [address] Dr. Karina Heath CBC AUTO DIFFon 10-14-2022 BASO # 0.0 103/ul Normal 0.0-0.1 [facility] Comment on above: Performed By: #### C BC #### [facility] [address] [address] [address] Karina Heath Basophils/100 WBC (Bld) 0.4 % Normal 0.2-2.0 [facility] Comment on above: Performed By: #### C BC #### [facility] [address] [place] [address] Dr. Karina Heath EO # 0.1 103/ul Normal 0.0-0.7 [facility] Comment on above: Performed By: #### C BC #### [facility] [address] [address] [address] Karina Heath Eosinophils/100 WBC (Bld) 1.5 % Normal 0.9-7.0 [facility] Comment on above: Performed By: #### C BC #### [facility] [address] [place] [address] Dr. Karina Heath Erythrocyte distribution width (RBC) [Ratio] 12.6 % Normal 11.0-15.0 [facility] Comment on above: Performed By: #### C BC #### [facility] [address] [place] [address] Dr. Karina Heath Hematocrit (Bld) [Volume fraction] 31.3 % Critically low 42.0-54.0 [facility] Comment on above: Performed By: #### C BC #### [facility] [address] [place] [address] Dr. Karina Heath Hemoglobin (Bld) [Mass/Vol] 10.8 g/dL Critically low 14.0-18.0 [facility] Comment on above: Performed By: #### C BC #### [facility] [address] [place] [address] Dr. Karina Heath IG # 0.05 10e3/ul Critically high 0.00-0.03 [facility] Comment on above: Performed By: #### C BC #### [facility] [address] [place] [address] Dr. Karina Heath IG % 0.7 % Critically high 0.0-0.[address] [facility] Comment on above: Performed By: #### C BC #### [facility] [address] [place] [address] Dr. Karina Heath LYMPH # 1.4 103/ul Normal 1.2-3.8 [facility] Comment on above: Performed By: #### C BC #### [facility] [address] [place] [address] Dr. Karina Heath Lymphocytes/100 WBC (Bld) 20.8 % Normal 20.5-60.0 [facility] Comment on above: Performed By: #### C BC #### [facility] [address] [place] [address] Dr. Karina Heath MANUAL DIFF REQ NO Normal [facility] Comment on above: Performed By: #### C BC #### [facility] [address] [place] [address] Dr. Karina Heath MCH (RBC) [Entitic mass] 29.4 pg Normal 25.9-34.0 [facility] Comment on above: Performed By: #### C BC #### [facility] [address] [place] [address] Dr. Karina Heath MCHC (RBC) [Mass/Vol] 34.5 g/dL Normal 29.9-35.2 [facility] Comment on above: Performed By: #### C BC #### [facility] [address] [place] [address] Dr. Karina Heath MCV (RBC) [Entitic vol] 85.3 fL Normal 80.0-94.0 [facility] Comment on above: Performed By: #### C BC #### [facility] [address] [place] [address] Dr. Karina Heath MONO # 0.7 103/ul Normal 0.3-0.8 [facility] Comment on above: Performed By: #### C BC #### [facility] [address] [place] [address] Dr. Karina Heath Monocytes/100 WBC (Bld) 10.3 % Normal 1.7-12.0 [facility] Comment on above: Performed By: #### C BC #### [facility] [address] [place] [address] Dr. Karina Heath NEUT # 4.5 103/ul Normal 1.4-6.5 [facility] Comment on above: Performed By: #### C BC #### [facility] [address] [place] [address] Dr. Karina Heath Neutrophils/100 WBC (Bld) 66.3 % Normal 43.0-75.0 [facility] Comment on above: Performed By: #### C BC #### [facility] [address] [place] [address] Dr. Karina Heath Platelet mean volume (Bld) [Entitic vol] 9.2 fL Critically low 9.5-13.5 [facility] Comment on above: Performed By: #### C BC #### [facility] [address] [place] [address] Dr. Karina Heath PLT 227 103/ul Normal 150-450 [facility] Comment on above: Performed By: #### C BC #### [facility] [address] [place] [address] Dr. Karina Heath RBC 3.67 106/ul Critically low 4.70-6.10 [facility] Comment on above: Performed By: #### C BC #### [facility] [address] [place] [address] Dr. Karina Heath WBC 6.7 103/ul Normal 4.0-11.0 [facility] Comment on above: Performed By: #### C BC #### [facility] [address] [place] [address] Dr. Karina Heath CULTURE ANAEROBICon 10-14-20 CULTURE ANAEROBIC Culture Observations : NO GROWTH OF ANAEROBES AT 72 HOURS. Normal [facility] Comment on above: Performed By: #### A NACX #### [facility] [address] [place] [address] Dr. Karina Heath GRAM STAINon 10-14-2022 DIPHTHEROIDS Normal [facility] Comment on above: Performed By: #### P OCGLUC #### [facility] [address] [place] [address] Dr. Karina Heath EPITHELIALS Normal [facility] Comment on above: Performed By: #### P OCGLUC #### [facility] [address] [address] [address] Karina Heath FUNGAL ELEMENTS Normal [facility] Comment on above: Performed By: #### P OCGLUC #### [facility] [address] [address] [address] Karina Heath GRAM NEG BACILLI Normal [facility] Comment on above: Performed By: #### P OCGLUC #### [facility] [address] [address] [address] Karina Heath GRAM NEG DIPPLOCOCCI Normal [facility] Comment on above: Performed By: #### P OCGLUC #### [facility] [address] [address] [address] Karina Heath GRAM POS BACILLI Normal [facility] Comment on above: Performed By: #### P OCGLUC #### [facility] [address] [address] [address] Karina Heath GRAM POSITIVE COCCI FEW Normal [facility] Comment on above: Performed By: #### P OCGLUC #### [facility] [address] [address] [address] Karina Heath GRAM STAIN SOURCE Rt Leg Abscess [facility] Comment on above: Performed By: #### P OCGLUC #### [facility] [address] [address] [address] Karina Heath GS_DIPTH [facility] Comment on above: Performed By: #### P OCGLUC #### [facility] [address] [address] [address] Karina Heath WBC RARE Normal [facility] Comment on above: Performed By: #### P OCGLUC #### [facility] [address] [address] [address] Karina Heath POINT OF CARE GLUCOSEon -2 Glucose [Mass/Vol] 282 mg/dL Critically high 74-106 T [facility] Comment on above: Performed By: #### C BC #### [facility] [address] [address] [address] Karina Heath Glucose [Mass/Vol] 281 mg/dL Critically high 74-106 [facility] Comment on above: Performed By: #### P OCGLUC #### [facility] [address] [place] [address] Dr. Karina Heath Glucose [Mass/Vol] 157 mg/dL Critically high -106 [facility] Comment on above: Performed By: #### P OCGLUC #### [facility] [address] [place] [address] Dr. Karina Heath Glucose [Mass/Vol] 180 mg/dL Critically high -106 [facility] Comment on above: Performed By: #### P OCGLUC #### [facility] [address] [place] [address] Dr. Karina Heath PROF CHEM 8 (BAS METB)on Anion gap [Moles/Vol] 10.4 mmol/L Normal [facility] Comment on above: Performed By: #### C BC #### [facility] [address] [place] [address] Dr. Karina Heath Calcium [Mass/Vol] 8.4 mg/dL Critically low 8.5-10.1 [facility] Comment on above: Performed By: #### C BC #### [facility] [address] [place] [address] Dr. Karina Heath Chloride [Moles/Vol] 99 mmol/L Normal 98-107 [facility] Comment on above: Performed By: #### C BC #### [facility] [address] [place] [address] Dr. Karina Heath CO2 [Moles/Vol] 29.3 mmol/L Normal 21.0-32.0 [facility] Comment on above: Performed By: #### C BC #### [facility] [address] [place] [address] Dr. Karina Heath Creatinine [Mass/Vol] 1.01 mg/dL Normal 0.70-1.30 [facility] Comment on above: Performed By: #### C BC #### [facility] [address] [place] [address] Dr. Karina Heath EGFR-AF ENGLISH >60 Normal >=60 [facility] - [place] Comment on above: Performed By: #### C BC #### [facility] [address] [place] [address] Dr. Karina Heath EGFR-NON AF ENGLISH >60 Normal >=60 [facility] Comment on above: Performed By: #### C BC #### [facility] [address] [address] [address] Karina Heath Glucose [Mass/Vol] 394 mg/dL Critically high 74-106 T [facility] Comment on above: Performed By: #### C BC #### [facility] [address] [address] [address] Karina Heath Potassium [Moles/Vol] 3.7 mmol/L Normal 3.5-5.1 [facility] Comment on above: Performed By: #### C BC #### [facility] [address] [place] [address] Dr. Karina Heath Sodium [Moles/Vol] 135 mmol/L Critically low 136-145 Th [facility] Comment on above: Performed By: #### C BC #### [facility] [address] [place] [address] Dr. Karina Heath Urea nitrogen [Mass/Vol] 13.0 mg/dL Normal 7.0-18.0 [facility] Comment on above: Performed By: #### C BC #### [facility] [address] [place] [address] Dr. Karina Heath Urea nitrogen/Creatinine [Mass ratio] 12.9 mg/mg Normal [facility] Comment on above: Performed By: #### C BC #### [facility] [address] [place] [address] Dr. Karina Heath PTTon 10-14-2022 aPTT Coag (Bld) [Time] 26.5 s Normal 22.3-36.2 [facility] Comment on above: Performed By: #### P OCGLUC #### [facility] [address] [place] [address] Dr. Karina Heath CBC AUTO DIFFon 10-13-2022 BASO # 0.1 103/ul Normal 0.0-0.1 [facility] Comment on above: Performed By: #### C BC #### [facility] [address] [place] [address] Dr. Karina Heath Basophils/100 WBC (Bld) 0.8 % Normal 0.2-2.0 [facility] Comment on above: Performed By: #### C BC #### [facility] [address] [place] [address] Dr. Karina Heath EO # 0.1 103/ul Normal 0.0-0.7 [facility] Comment on above: Performed By: #### C BC #### [facility] [address] [place] [address] Dr. aKrina Heath Eosinophils/100 WBC (Bld) 1.8 % Normal 0.9-7.0 [facility] Comment on above: Performed By: #### C BC #### [facility] [address] [place] [address] Dr. Karina Heath Erythrocyte distribution width (RBC) [Ratio] 12.3 % Normal 11.0-15.0 [facility] Comment on above: Performed By: #### C BC #### [facility] [address] [place] [address] Dr. Karina Heath Hematocrit (Bld) [Volume fraction] 33.7 % Critically low 42.0-54.0 [facility] Comment on above: Performed By: #### C BC #### [facility] [address] [place] [address] Dr. Karina Heath Hemoglobin (Bld) [Mass/Vol] 11.8 g/dL Critically low 14.0-18.0 [facility] Comment on above: Performed By: #### C BC #### [facility] [address] [place] [address] Dr. Karina Heath IG # 0.05 10e3/ul Critically high 0.00-0.03 [facility] Comment on above: Performed By: #### C BC #### [facility] [address] [place] [address] Dr. Karina Heath IG % 0.8 % Critically high 0.0-0.5 [facility] Comment on above: Performed By: #### C BC #### [facility] [address] [place] [address] Dr. Karina Heath LYMPH # 1.0 103/ul Critically low 1.2-3.8 [facility] Comment on above: Performed By: #### C BC #### [facility] [address] [place] [address] Dr. Karina Heath Lymphocytes/100 WBC (Bld) 16.4 % Critically low 20.5-60.0 [facility] Comment on above: Performed By: #### C BC #### [facility] [address] [place] [address] Dr. Karina Heath MANUAL DIFF REQ NO Normal [facility] Comment on above: Performed By: #### C BC #### [facility] [address] [place] [address] Dr. Karina Heath MCH (RBC) [Entitic mass] 28.9 pg Normal 25.9-34.0 [facility] Comment on above: Performed By: #### C BC #### [facility] [address] [place] [address] Dr. Karina Heath MCHC (RBC) [Mass/Vol] 35.0 g/dL Normal 29.9-35.2 [facility] Comment on above: Performed By: #### C BC #### [facility] [address] [place] [address] Dr. Karina Heath MCV (RBC) [Entitic vol] 82.6 fL Normal 80.0-94.0 [facility] Comment on above: Performed By: #### C BC #### [facility] [address] [place] [address] Dr. Karina Heath MONO # 0.7 103/ul Normal 0.3-0.8 [facility] Comment on above: Performed By: #### C BC #### [facility] [address] [place] [address] Dr. Karina Heath Monocytes/100 WBC (Bld) 10.6 % Normal 1.7-12.0 [facility] Comment on above: Performed By: #### C BC #### [facility] [address] [place] [address] Dr. Karina Heath NEUT # 4.3 103/ul Normal 1.4-6.5 [facility] Comment on above: Performed By: #### C BC #### [facility] [address] [place] [address] Dr. Karina Heath Neutrophils/100 WBC (Bld) 69.6 % Normal 43.0-75.0 [facility] Comment on above: Performed By: #### C BC #### [facility] [address] [place] [address] Dr. Karina Heath Platelet mean volume (Bld) [Entitic vol] 9.0 fL Critically low 9.5-13.5 [facility] Comment on above: Performed By: #### C BC #### [facility] [address] [place] [address] Dr. Karina Heath PLT 257 103/ul Normal 150-450 [facility] Comment on above: Performed By: #### C BC #### [facility] [address] [place] [address] Dr. Karina Heath RBC 4.08 106/ul Critically low 4.70-6.[address] [facility] Comment on above: Performed By: #### C BC #### [facility] [address] [place] [address] Dr. Karina Heath WBC 6.1 103/ul Normal 4.0-11.0 [facility] Comment on above: Performed By: #### C BC #### [facility] [address] [place] [address] Dr. Karina Heath CULTURE BLOODon 10-13-2022 Microscopic examination of blood, culture Culture Observations: NO GROWTH AT 5 DAYS. Normal [facility] Comment on above: Performed By: #### P OCGLUC #### [facility] [address] [place] [address] Dr. Karina Heath Microscopic examination of blood, culture Culture Observations: NO GROWTH AT 5 DAYS. Normal [facility] Comment on above: Performed By: #### P OCGLUC #### [facility] [address] [place] [address] Dr. Karina Heath Covid-19 PCR ([facility])on 09-17 SARS-CoV-2 (COVID-19) RNA MEETA+probe Ql (Unsp spec) Not detected Normal NOT DETECTED [facility] Comment on above: Result Comment: When [...] for this test is supported by the [place] of Health and Human Service's declaration that [...] used). Performed By: #### P OCGLUC #### [facility] [address] [place] [address] Dr. Karina Heath POINT OF CARE GLUCOSEon 09-17 Glucose [Mass/Vol] 281 mg/dL Critically high 74-106 T [facility] Comment on above: Performed By: #### P OCGLUC #### [facility] [address] [place] [address] Dr. Karina Heath GI PANEL (PCR)on 09-24-2022 Adenovirus F 40/41 Not detected Normal NOT DETECTED [facility] Comment on above: Performed By: #### C BC #### [facility] [address] [place] [address] Dr. Karina Heath Astrovirus Not detected Normal NOT DETECTED [facility] Comment on above: Performed By: #### C BC #### [facility] [address] [place], [place] [id number] Dr. Karina Godinez Diff toxin A/B Not detected Normal NOT DETECTED [facility] Comment on above: Performed By: #### C BC #### [facility] [address] [place] [address] Dr. Karina Heath Campylobacter Not detected Normal NOT DETECTED [facility] Comment on above: Performed By: #### C BC #### [facility] [address] [place] [address] Dr. Karina Heath Cryptosporidium Not detected Normal NOT DETECTED [facility] Comment on above: Performed By: #### C BC #### [facility] [address] [place] [address] Dr. Karina Heath Cyclos. Cayetanensis Not detected Normal NOT DETECTED [facility] Comment on above: Performed By: #### C BC #### [facility] [address] [place] [address] Dr. Karina Heath E. Coli O157 Not Applicable Normal Not Applicable [facility] Comment on above: Performed By: #### C BC #### [facility] [address] [place] [address] Dr. Karina Heath E. histolytica Not detected Normal NOT DETECTED The [facility] Comment on above: Performed By: #### C BC #### [facility] [address] [place] [address] Dr. Karina Heath EAEC Not detected Normal NOT DETECTED [facility] Comment on above: Performed By: #### C BC #### [facility] [address] [place] [address] Dr. Karina Heath EIEC Not detected Normal NOT DETECTED [facility] Comment on above: Performed By: #### C BC #### [facility] [address] [place] [address] Dr. Karina Heath EPEC Not detected Normal NOT DETECTED [facility] Comment on above: Performed By: #### C BC #### [facility] [address] [place] [address] Dr. Karina Heath ETEC Not detected Normal NOT DETECTED [facility] Comment on above: Performed By: #### C BC #### [facility] [address] [address] [address] Karina Ryan Not detected Normal NOT DETECTED [facility] Comment on above: Performed By: #### C BC #### [facility] [address] [address] [address] Karina REDDY CONTROLS PASSED Normal [facility] Comment on above: Performed By: #### C BC #### [facility] [address] [address] [address] Karina VELIZ AMARI HEADER GI PANEL BACTERIA Normal T [facility] Comment on above: Performed By: #### C BC #### [facility] [address] [address] [address] Karina MARTIN ECOLI GI PANEL DIARRHEAGEN IC E.COLI / SHIGELLA Normal [facility] Comment on above: Performed By: #### C BC #### [facility] [address] [address] [address] Karina MARTIN INFO SEE BELOW Normal [facility] Comment on above: Result Comment: EAEC - Enteroaggregative E. Coli EPEC- Enteropathogenic E. Coli ETEC- Enterotoxigenic E. Coli lt/st STEC- Shigella-like toxin-producing E. Coli stx1/stx2 EIEC- Shigella/Enteroinvasive E. Coli Performed By: #### C BC #### [facility] [address] [address] [address] Karina MARTIN PARASITES GI PANEL PARASITES Normal [facility] Comment on above: Performed By: #### C BC #### [facility] [address] [address] [address] Karina MARTIN VIRUS GI PANEL VIRUSES Normal [facility] Comment on above: Performed By: #### C BC #### [facility] [address] [address] [address] Karina Heath Norovirus GI/GII Not detected Normal NOT DETECTED [facility] Comment on above: Performed By: #### C BC #### [facility] [address] [place] [address] Dr. Karina Heath P. Shigelloides Not detected Normal NOT DETECTED [facility] Comment on above: Performed By: #### C BC #### [facility] [address] [place] [address] Dr. Karina Heath Rotavirus A Not detected Normal NOT DETECTED [facility] Comment on above: Performed By: #### C BC #### [facility] [address] [place] [address] Dr. Karina Heath Salmonella Not detected Normal NOT DETECTED [facility] Comment on above: Performed By: #### C BC #### [facility] [address] [place] [address] Dr. Karina Heath Sapovirus Not detected Normal NOT DETECTED [facility] Comment on above: Performed By: #### C BC #### [facility] [address] [place] [address] Dr. Karina Heath STEC Detected Critically abnormal NOT DETECTED [facility] Comment on above: Performed By: #### C BC #### [facility] [address] [place] [address] Dr. Karina Heath Vibrio Not detected Normal NOT DETECTED [facility] Comment on above: Performed By: #### C BC #### [facility] [address] [place] [address] Dr. Karina Heath Vibrio Cholera Not detected Normal NOT DETECTED The [facility] Comment on above: Performed By: #### C BC #### [facility] [address] [place] [address] Dr. Karina Heath Y. Enterocolitica Not detected Normal NOT DETECTED [facility] Comment on above: Performed By: #### C BC #### [facility] [address] [place] [address] Dr. Karina Heath [facility]17 SARS-CoV-2 (COVID-19) RNA MEETA+probe Ql (Unsp spec) Detected Critically abnormal NOT DETECTED [facility] Comment on above: Result Comment: This test is not yet approved or cleared by the [place] FDA. When there are no FDA-approved or cleared tests available, and other criteria are met, FDA can make tests available under an emergency access mechanism called an Emergency Use Authorization (EUA). The EUA for this test is supported by the [employer] of Health and Human Service's declaration that [...] used). Performed By: #### P OCGLUC #### [facility] [address] [place] [address] Dr. Karina Heath CAROTID ART BILon 13-2 [...] RAMIRO BURNETT Date: 2022-04-28 18:57 Normal [facility] Basic Metabolic Panel w/ Ref jose to MGon 04-19-2022 Anion gap [Moles/Vol] 13 mmol/L 9 - 17 mmol/L [facility] Calcium [Mass/Vol] 9.1 mg/dL 8.6 - 10. 4 mg/dL [facility] Chloride [Moles/Vol] 97 mmol/L Low 98 - 10 7 mmol/L [facility] CO2 [Moles/Vol] 23 mmol/L 20 - 31 mmol/L [facility] Creatinine [Mass/Vol] 1.46 mg/dL High 0.70 - 1.20 mg/dL [facility] GFR >60 >60 mL/min [facility] GFR Non- 52 mL/min Low >60 [facility] Glucose [Mass/Vol] 154 mg/dL High 70 - 99 mg/dL [facility] Interpretation and review of laboratory results Abnormal [facility] Potassium [Moles/Vol] 4.0 mmol/L 3.7 - 5.3 mmol/L [facility] Sodium [Moles/Vol] 133 mmol/L Low 135 - 144 mmol/L [facility] Urea nitrogen (BldV) [Mass/Vol] 39 mg/dL High 6 - 20 mg/dL [facility] Urea nitrogen/Creatinine (Bld) [Mass ratio] 27 High [facility] CBC with Auto Differentialon 04-19-2022 Absolute Eos # 0.13 [facility] Absolute Immature Granulocyte 0.04 [facility] Absolute Lymph # 1.66 [facility] Absolute [place] # 0.72 [facility] Basophils (Bld) [#/Vol] 0.05 10*3/uL [facility] Basophils/100 WBC (Bld) 1 % 0 - 2 % [facility] Eosinophils/100 WBC (Bld) 1 % 1 - 4 % [facility] Hematocrit (Bld) [Volume fraction] 45.8 % 40.7 - 50.3 % [facility] Hemoglobin (Bld) [Mass/Vol] 15.2 g/dL 13.0 - 17.0 g/dL [facility] Immature granulocytes/100 WBC (Bld) 0 % 0 [facility] Interpretation and review of laboratory results Abnormal [facility] Lymphocytes/100 WBC (Bld) 16 % Low 24 - 43 % [facility] MCH (RBC) [Entitic mass] 28.1 pg 25.2 - 33.5 pg [facility] MCHC (RBC) [Mass/Vol] 33.2 g/dL 28.4 - 34.8 g/dL [facility] MCV (RBC) [Entitic vol] 84.8 fL 82.6 - 102.9 fL [facility] [employer] Monocytes/100 WBC (Bld) 7 % 3 - 12 % [facility] [employer] NRBC Automated 0.0 0.0 per 100 WBC [facility] Platelet distribution width (Bld) [Ratio] 13.4 % 11.8 - 14.4 % [facility] Platelet mean volume (Bld) [Entitic vol] 9.2 fL 8.1 - 13.5 fL [facility] Platelets (Bld) [#/Vol] 214 10*3/uL [facility] RBC (Bld) [#/Vol] 5.40 10*6/uL 4.21 - 5.7 7 m/uL [facility] [employer] Segmented neutrophils/100 WBC (Bld) 75 % High 36 - 65 % [facility] [employer] Segs Absolute 7.72 [facility] WBC (Bld) [#/Vol] 10.3 10*3/uL [facility] CT Head WO Contraston 2021 No acute [...] is intact. Extracranial soft tissues are unremarkable. [facility] Ajay Aggarwal M D - 04/19/2022 EXAMINATION: [...] are unremarkable. IMPRESSION: No acute intracranial abnormality. [employer] Work Phone: Radiology Study observation (narrative) [employer] Work Phone: CT Head WO ContrastOrdered B y: Ajay Alessia on 04-19-2022 [employer] [facility] Work Phone: Laboratory - Chemistry and C hemistry - challengeon 04-19-2022 GFR/1.73 sq M.predicted MDRD (S/P/Bld) [Vol rate/Area] [employer] Comment on above: Average GFR for 40-4 9 years old: 99 mL/min/1.73sq m Chronic Kidney Disease: <60 mL/min/1.73sq m Kidney failure: <15 mL/min/1.73sq m eGFR calculated using average adult body mass. Additional eGFR calculator available at: http://[email or web address].CityHeroes/multiple_crcl_2012.htm Stage 1: Some kidney damage normal GFR Stage 2: Mild kidney damage GFR 60-89 Stage 3: Moderate kidney damage GFR 30-59 Stage 4: Severe kidney damage GFR 15-29 Stage 5: Severe kidney damage GFR <15 ESRD - chronic treatment by dialysis or transplant Protime-INRon 04-19-2022 INR Coag (Bld) [Relative time] 1.0 {INR} [facility] Comment on above: Non-therapeutic Range: INR = 0.9-1.2 Therapeutic Range: Moderate Anticoagulant Intensity: INR = 2.0-3.0 High Anticoagulant Intensity: INR = 2.5-3.5 PT Coag (PPP) [Time] 13.4 s [facility] Troponinon 04-19-2022 Troponin, High Sensitivity 18 ng/L 0 - 22 ng/L [facility] Comment on above: High Sensitivity Troponin values cannot be compared with other Troponin methodologies. Patients with high levels of Biotin oral intake (i.e >5mg/day) may have falsely decreased Troponin levels. Samples collected within 8 hours of biotin intake may require additional information for diagnosis. [facility] CBC with Auto Differentialon 04-04-2022 Absolute Eos # 0.08 [facility] Absolute Immature Granulocyte <0.03 [facility] Absolute Lymph # 1.53 [facility] Absolute [place] # 0.58 [facility] Basophils (Bld) [#/Vol] 0.05 10*3/uL [facility] Basophils/100 WBC (Bld) 1 % 0 - 2 % [facility] Eosinophils/100 WBC (Bld) 1 % 1 - 4 % [facility] Hematocrit (Bld) [Volume fraction] 44.8 % 40.7 - 50.3 % [facility] Hemoglobin (Bld) [Mass/Vol] 15.0 g/dL 13.0 - 17.0 g/dL [facility] Immature granulocytes/100 WBC (Bld) 0 % 0 [facility] Interpretation and review of laboratory results Abnormal [facility] Lymphocytes/100 WBC (Bld) 16 % Low 24 - 43 % [facility] MCH (RBC) [Entitic mass] 27.9 pg 25.2 - 33.5 pg [facility] MCHC (RBC) [Mass/Vol] 33.5 g/dL 28.4 - 34.8 g/dL [facility] MCV (RBC) [Entitic vol] 83.4 fL 82.6 - 102.9 fL [facility] Monocytes/100 WBC (Bld) 6 % 3 - 12 % [facility] NRBC Automated 0.0 0.0 per 100 WBC [facility] Platelet distribution width (Bld) [Ratio] 13.8 % 11.8 - 14.4 % [facility] Platelet mean volume (Bld) [Entitic vol] 10.1 fL 8.1 - 13.5 fL [facility] Platelets (Bld) [#/Vol] 208 10*3/uL [facility] RBC (Bld) [#/Vol] 5.37 10*6/uL 4.21 - 5.7 7 m/uL [facility] Segmented neutrophils/100 WBC (Bld) 76 % High 36 - 65 % [facility] Segs Absolute 7.18 [facility] WBC (Bld) [#/Vol] 9.4 10*3/uL [facility] CT Head WO Contraston 2021 [...] of the visualized skull or soft tissues. 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 [employer] Work Phone: Radiology Study observation (narrative) [email or web address] Phone: CT Head WO ContrastOrdered B y: Faustino Milan on 04-04-2022 [employer] Work Phone: Comprehensive Metabolic Pane l w/ Reflex to MGon 04-04-2022 Albumin [Mass/Vol] 4.4 g/dL 3.5 - 5.2 g/dL [employer] Albumin/Globulin [Mass ratio] 1.4 {ratio} [employer] ALP (Bld) [Catalytic activity/Vol] 108 U/L 40 - 129 U/L [employer] ALT [Catalytic activity/Vol] 24 U/L 5 - 41 U/L [facility] Anion gap [Moles/Vol] 12 mmol/L 9 - 17 mmol/L [facility] AST [Catalytic activity/Vol] 21 U/L <40 [facility] Bilirubin [Mass/Vol] 0.17 mg/dL Low 0.3 - 1 .2 mg/dL [facility] Calcium [Mass/Vol] 9.6 mg/dL 8.6 - 10. 4 mg/dL [facility] Chloride [Moles/Vol] 98 mmol/L 98 - 10 7 mmol/L [facility] CO2 [Moles/Vol] 24 mmol/L 20 - 31 mmol/L [facility] Creatinine [Mass/Vol] 1.36 mg/dL High 0.70 - 1.20 mg/dL [facility] Free PSA/Total PSA [Mass fraction] 7.5 g/dL 6.4 - 8.3 g/dL [facility] GFR >60 >60 mL/min [facility] GFR Non- 56 mL/min Low >60 [facility] Glucose [Mass/Vol] 270 mg/dL High 70 - 99 mg/dL [facility] Interpretation and review of laboratory results Abnormal [facility] Potassium [Moles/Vol] 4.0 mmol/L 3.7 - 5.3 mmol/L [facility] Sodium [Moles/Vol] 134 mmol/L Low 135 - 144 mmol/L [facility] Urea nitrogen (BldV) [Mass/Vol] 24 mg/dL High 6 - 20 mg/dL [facility] Urea nitrogen/Creatinine (Bld) [Mass ratio] 18 [facility] Glucose, Whole Bloodon 04-04 Glucose [Mass/Vol] 256 mg/dL High 74 - 100 mg/dL [facility] Interpretation and review of laboratory results Abnormal [facility] Laboratory - Chemistry and C hemistry - challengeon 04-04-2022 GFR/1.73 sq M.predicted MDRD (S/P/Bld) [Vol rate/Area] [facility] Comment on above: Average GFR for 40-4 9 years old: 99 mL/min/1.73sq m Chronic Kidney Disease: <60 mL/min/1.73sq m Kidney failure: <15 mL/min/1.73sq m eGFR calculated using average adult body mass. Additional eGFR calculator available at: http://www.[employer]/multiple_crcl_2012.htm Stage 1: Some kidney damage normal GFR [...] 98.49 [degF] Stanley Mckenzie MD Work Phone: [facility] 10-06-2024 19:40-0500 Diastolic blood pressure 91 mm[Hg] Stanley Mckenzie MD Work Phone: [facility] 10-06-2024 19:40-0500 Heart rate 74 /min Stanley Mckenzie MD Work Phone: [facility] 10-06-2024 19:40-0500 Respiratory rate 16 /min Stanley Mckenzie MD Work Phone: [facility] 10-06-2024 19:40-0500 SaO2% (BldA) [Mass fraction] 96 % Stanley Mckenzie MD Work Phone: [facility] 10-06-2024 19:40-0500 Systolic blood pressure 148 mm[Hg] Stanley Mckenzie MD Work Phone: [facility] 10-04-2024 06:00-0500 Body mass index (BMI) [Ratio] 26.03 kg/m2 Stanley Mckenzie MD Work Phone: [facility] 10-04-2024 06:00-0500 Body weight 82.3 kg Stanley Mckenzie MD Work Phone: [facility] 09-29-2024 16:41-0500 Body height 177.8 cm Stanley Mckenzie MD Work Phone: [facility] 09-28-2024 13:00-0500 Diastolic blood pressure 76 mm[Hg] Rashad Chavez MD Work Phone: [facility] 09-28-2024 13:00-0500 Heart rate 115 /min Rashad Chavez MD Work Phone: [facility] 09-28-2024 13:00-0500 Respiratory rate 25 /min Rashad Chavez MD Work Phone: [facility] 09-28-2024 13:00-0500 SaO2% (BldA) [Mass fraction] 100 % Rashad Chavez MD Work Phone: [facility] 09-28-2024 13:00-0500 Systolic blood pressure 157 mm[Hg] Rashad Chavez MD Work Phone: [facility] 09-28-2024 11:47-0500 Body temperature 37.0 Rashad Chavez MD Work Phone: [facility] 09-28-2024 11:05-0500 Body temperature 100.9 [degF] Rashad Chavez MD Work Phone: [facility] 09-28-2024 10:19-0500 Body mass index (BMI) [Ratio] 27.84 kg/m2 Rashad Chavez MD Work Phone: [facility] 09-28-2024 10:19-0500 Body weight 88 kg Rashad Chavez MD Work Phone: [facility] [employer] 09-28-2024 09:48-0500 Body temperature 37.0 Rashad Chavez MD Work Phone: [facility] 01-22-2024 15:44-0400 Body temperature 97.81 [degF] Sarmad Daly MD Work Phone: [facility] [employer] 01-22-2024 15:44-0400 Diastolic blood pressure 85 mm[Hg] Sarmad Daly MD Work Phone: [facility] [employer] 01-22-2024 15:44-0400 Heart rate 70 /min Sarmad Daly MD Work Phone: [facility] [employer] 01-22-2024 15:44-0400 Respiratory rate 11 /min Sarmad Daly MD Work Phone: [facility] [employer] 01-22-2024 15:44-0400 SaO2% (BldA) [Mass fraction] 98 % Sarmad Daly MD Work Phone: [facility] [employer] 01-22-2024 15:44-0400 Systolic blood pressure 138 mm[Hg] Sarmad Daly MD Work Phone: [facility] [employer] 01-21-2024 21:40-0400 Body height 177.8 cm Sarmad Daly MD Work Phone: [facility] [employer] 01-21-2024 21:40-0400 Body mass index (BMI) [Ratio] 27.93 kg/m2 Sarmad Daly MD Work Phone: [facility] [employer] 01-21-2024 21:40-0400 Body weight 88.3 kg Sarmad Daly MD Work Phone: [facility] [employer] 01-19-2024 01:32-0400 Diastolic blood pressure 82 mm[Hg] Steve Alvarado MD Work Phone: [facility] [employer] 01-19-2024 01:32-0400 Heart rate 87 /min Steve Alvarado MD Work Phone: [facility] [employer] 01-19-2024 01:32-0400 Respiratory rate 16 /min Steve Alvarado MD Work Phone: [facility] [employer] 01-19-2024 01:32-0400 SaO2% (BldA) [Mass fraction] 99 % Steve Alvarado MD Work Phone: [facility] 01-19-2024 01:32-0400 Systolic blood pressure 126 mm[Hg] Steve Alvarado MD Work Phone: [facility] [employer] 01-19-2024 00:46-0400 Body temperature 98.71 [degF] Steve Alvarado MD Work Phone: [facility] 01-18-2024 23:14-0400 Body height 177.8 cm Steve Alvarado MD Work Phone: [facility] [employer] 01-18-2024 23:14-0400 Body mass index (BMI) [Ratio] 27.26 kg/m2 Steve Alvarado MD Work Phone: [facility] [employer] 01-18-2024 23:14-0400 Body weight 86.18 kg Steve Alvarado MD Work Phone: [facility] 09-24-2023 18:52-0500 Diastolic blood pressure 85 mm[Hg] Reginaldo Beltran MD Work Phone: [facility] 09-24-2023 18:52-0500 Heart rate 98 /min Reginaldo Beltran MD Work Phone: [facility] 09-24-2023 18:52-0500 Respiratory rate 18 /min Reginaldo Beltran MD Work Phone: [facility] 09-24-2023 18:52-0500 SaO2% (BldA) [Mass fraction] 96 % Reginaldo Beltran MD Work Phone: [facility] 09-24-2023 18:52-0500 Systolic blood pressure 140 mm[Hg] Reginaldo Beltran MD Work Phone: [facility] 09-24-2023 17:07-0500 Body temperature 98.91 [degF] Reginaldo Beltran MD Work Phone: [facility] 09-22-2023 12:07-0500 SaO2% (BldA) [Mass fraction] 98.9 % Reginaldo Beltran MD Work Phone: [facility] 09-22-2023 04:00-0500 Body height 182.9 cm Reginaldo Beltran MD Work Phone: [facility] 09-22-2023 04:00-0500 Body mass index (BMI) [Ratio] 25.58 kg/m2 Reginaldo Beltran MD Work Phone: [facility] 09-22-2023 04:00-0500 Body weight 85.55 kg Reginaldo Beltran MD Work Phone: [facility] 09-21-2023 16:54-0500 SaO2% (BldA) [Mass fraction] 99.9 % Reginaldo Beltran MD Work Phone: [facility] 04-20-2022 00:26-0400 SaO2% (BldA) [Mass fraction] 97 % Lulú Bush DO Work Phone: [employer] 04-20-2022 00:15-0400 Diastolic blood pressure 88 mm[Hg] Lulú Bush DO Work Phone: [employer] 04-20-2022 00:15-0400 Heart rate 100 /min Lulú Bush DO Work Phone: [employer] 04-20-2022 00:15-0400 Respiratory rate 19 /min Lulú Bush DO Work Phone: [employer] 04-20-2022 00:15-0400 Systolic blood pressure 145 mm[Hg] Lulú Bush DO Work Phone: [employer] 04-19-2022 21:45-0400 Body temperature 96.8 [degF] Lulú Bush DO Work Phone: [employer] 04-04-2022 23:25-0400 Diastolic blood pressure 106 mm[Hg] Cheng Lira MD [employer] 04-04-2022 23:25-0400 Systolic blood pressure 198 mm[Hg] Cheng Lira MD [facility] 04-04-2022 23:15-0400 SaO2% (BldA) [Mass fraction] 94 % Cheng Lira MD [facility] 04-04-2022 21:58-0400 Body height 177.8 cm Cheng [facility] 04-04-2022 21:58-0400 Body mass index (BMI) [Ratio] 27.26 kg/m2 Cheng Lira MD [facility] 04-04-2022 21:58-0400 Body temperature 97.2 [degF] Cheng Lira MD [facility] 04-04-2022 21:58-0400 Body weight 86.18 kg Cheng [facility] MD [facility] 04-04-2022 21:58-0400 Heart rate 84 /min Cheng [facility]ira MD [facility] 04-04-2022 21:58-0400 Respiratory rate 20 /min Cheng [facility] MD [facility] Encounters Encounter Date Encounter Type Care Provider Facility Start: 10-14-2024 End: 10-14-2024 ambulatory [facility] Start: 10-14-2024 End: 10-14-2024 Subsequent hospital visit by physician Vincent Winters MD Work Phone: [facility] Laboratory Comment on above: 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) Start: 10-03-2024 End: 10-05-2024 Evaluation and management of inpatient Stanley Mckenzie MD Work Phone: [facility] Non-Invasive Cardiology Comment on above: Arrived Start: 09-28-2024 End: 10-06-2024 Evaluation and management of inpatient Stanley Mckenzie MD Work Phone: [address] Burn Unit Start: 09-28-2024 End: 09-28-2024 Emergency department patient visit Rashad Chavez MD Work Phone: [facility] Department Comment on above: Hypertensive encepha lopathy (Primary Dx); Diabetic ketoacidosis with coma associated with type 2 diabetes mellitus (HCC); Pneumonia of left lower lobe due to infectious organism; Altered mental status, unspecified altered mental status type; ABHIJIT (acute kidney injury) (HCC); Acute respiratory failure with hypoxia; Non compliance w medication regimen Start: 02-28-2024 End: 02-29-2024 ambulatory Felix LUKE Facility:[facility] Start: 02-28-2024 End: 02-28-2024 Patient encounter procedure Felix LUKE [facility] [place] Start: 01-19-2024 End: 01-22-2024 Evaluation and management of inpatient Sarmad Daly MD Work Phone: [address] Onc/Med Surg Start: 01-18-2024 End: 01-19-2024 Emergency department patient visit Steve Alvarado MD Work Phone: [facility] ED Comment on above: Hypertensive encepha lopathy (Primary Dx); Hypertensive emergency Start: 10-16-2023 ambulatory VINCENT WINTERS [facility] Start: 09-21-2023 End: 09-24-2023 Evaluation and management of inpatient NEUROLOGY CONSULT [facility] Start: 09-21-2023 End: 09-24-2023 Evaluation and management of inpatient Reginaldo Beltran MD Work Phone: [facility] Med Surg Comment on above: Acute respiratory fa ilure Start: 08-12-2023 End: 08-13-2023 ambulatory Jarod Aviles [employer]CH[employer]SUPERVISOR [employer] Facility:[facility] Start: 05-13-2023 End: 05-14-2023 ambulatory Jarod Aviles [employer]PA[employer] MECHANIC[employer]SUPERVISOR [employer] Facility:[facility] Start: 02-11-2023 End: 02-12-2023 ambulatory Jarod Aviles [employer] REPA[employer] MECHANIC-SUPERVISOR [employer] Facility:[facility] Start: 01-11-2023 End: 01-12-2023 ambulatory [facility] Facility:[facility] Start: 12-27-2022 End: 12-28-[address] VINCENT WINTERS . Facility:[facility] Start: 12-24-2022 End: 12-25-2022 ambulatory [facility] Facility:[facility] Start: 12-03-2022 End: 12-04-[address] VINCENT WINTERS . Facility:[facility] Start: 11-12-2022 End: 11-13-[address] VINCENT WINTERS . Facility:[facility] Start: 10-22-2022 End: 10-23-[address] VINCENT WINTERS . Facility:[facility] Start: 10-18-[address] VINCENT WINTERS . Facili ty:[facility]1 Start: 10-13-2022 End: 10-15-2022 Evaluation and management of inpatient JACQUELINE Orantes [facility] Facility:[facility] Start: 10-13-2022 End: 10-14-[address] [...] visit Lulú Kiera Bush DO Work Phone: [facility] ED Comment on above: Essential hypertensi on (Primary Dx); Acute headache, unspecified headache type Start: 04-04-2022 End: 04-05-2022 Emergency department patient visit Cheng Lira MD [facility] ED Comment on above: Acute nonintractable [...] Start: 10-05-2024 Glucose blood reagent strip Rhoda uLna MD Work Phone: Start: 10-05-2024 Glucose blood [...] Start: 10-05-2024 EEG VIDEO MONITORING Rafa Restrepo [employer] REPA[employer] MECHANIC - SUPERVISOR [employer] Work Phone: Start: 10-05-2024 Electroencephalogram w/rec awake&drowsy [...] Myocardial spect mul tiple studies Aleja Wagoner AIRCRAFT [employer]URAL REPAIR MECHANIC - DRAPERY AND UPHOLSTERY ESTIMATOR Work Phone: Start: 10-03-2024 Glucose blood reagent [...] 09-28-2024 RESPIRATORY CARE AMALIA LUATION ONLY Ann Lopze MD Work Phone: Start: 09-28-2024 Radiologic exam [...] instr mnt chem analyzers pr date Rashad Arana Dimple STEVENS Work Phone: Start: 09-28-2024 Urinalysis [...] Trino Gilliland MD Work Phone: Start: 01-22-2024 Glucose [...] total Xochitl Hampton MD Work Phone: Start: 3 End: 01-20-2024 Glucose blood reagent strip Sarmad [...] ecg w/le ast 12 lds w/i&r Steve Alvarado MD Work Phone: Start: 01-18-2024 [...] white cell differential, automated Cecil Golden Moncho [employer] REPAIR MECHANIC-SUPERVISOR [employer]BLY Work Phone: Start: 09-24-[address] janessa Golden Moncho [employer] REPAIR MECHANIC-SUPERVISOR [employer] Work Phone: Start: 09-23-2023 Electroencephalogram w/rec awake&drowsy Aracely Rickreall [employer] REPAIR MECHANIC-SUPERVISOR [employer]SEMBLY Work Phone: Start: 09-23-2023 Echo tthrc r-t 2d w/ wom-mode compl spec&colr d Cecil Golden Moncho [employer] REPAIR MECHANIC-SUPERVISOR [employer]SEMBLY Work Phone: Start: 09-23-2023 End: 09-23-2023 Renal function panel Cecil Golden Moncho [employer]FT [employer]UCT[employer] REPAIR MECHANIC-SUPERVISOR [employer] Work Phone: Start: 09-23-2023 Gluc bld gluc mntr d ev cleared fda spec home use Karl Bird MD Start: 09-22-2023 Gluc bld gluc mntr d ev cleared fda spec home use Karl Bird MD Start: 09-22-2023 Gluc bld gluc mntr d ev cleared fda spec home use Karl Bird MD Start: 09-22-2023 Mri brain brain stem w/o contrast material Aracely Mariewood [employer] REPAIR MECHANIC-SUPERVISOR [employer] Work Phone: Start: 09-22-2023 End: 09-22-2023 Gluc bld gluc mntr dev cleared fda spec home use Karl Bird MD Start: 09-22-2023 Iadna multiple organ isms amplified probe tq Cecil Ivan [employer] REPAIR MECHANIC-SUPERVISOR [employer] Work Phone: Start: 09-22-2023 End: 09-22-2023 Drug tst prsmv instrmnt chem analyzers pr date Cecil Ivan [employer] REPAIR MECHANIC-SUPERVISOR [employer] Work Phone: Start: 09-22-2023 Gluc bld gluc [...] (Diabetes, CKD 3-4, OR last GFR 15-59) ePrep Start: 10-06-2025 [facility] [employer] Start: 10-05-2025 GFR test (Diabetes, CKD 3-4, OR last GFR 15-59) GFR test (Diabetes, CKD 3-4, OR last GFR 15-59) ePrep Start: 10-01-2025 Lipid panel [facility] [employer] Start: 09-28-2025 GFR test (Diabetes, CKD 3-4, OR last GFR 15-59) GFR test (Diabetes, CKD 3-4, OR last GFR 15-59) ePrep Start: 09-28-2025 Hemoglobin A1c measurement [facility] [employer] Start: 01-21-2025 [facility] [employer] Start: 01-17-2025 GFR test (Diabetes, CKD 3-4, OR last GFR 15-59) GFR test (Diabetes, CKD 3-4, OR last GFR 15-59) [employer] Start: 12-11-2024 End: 12-11-2024 Patient encounter procedure 12/11/2024 2:30 PM EST Office Visit [place] [facility] - [address] [address] Levi Keith MD [address] [place] [address] loop [facility] [facility] [place] Comment on above: loop Start: 11-02-2024 End: 10-02-2025 MR Brain WO and W contrast IV [employer] Start: 10-13-2024 End: 10-06-2025 Basic metabolic 2000 panel - Serum or Plasma ePrep Start: 06-17-2024 COVID-19 Vaccine () COVID-19 Vaccine () [facility]Prep Start: 06-17-2024 [facility] Start: 05-17-2024 Influenza vaccination [facility] Start: 05-17-2024 [facility] Start: 04-19-2024 Hemoglobin A1c measurement [facility] Start: 12-20-2023 Shingles vaccine (1 of 2) Shingles vaccine (1 of 2) [facility] Start: 12-20-2023 [facility] Start: 06-17-2023 COVID-19 VACCINE (2022- season) COVID-19 VACCINE (2 - 2022- season) [facility] Start: 06-17-2023 Influenza vaccination INFLUENZA VACCINE (#1) [facility] Start: 06-17-2023 [facility] Start: 10-31-2022 Lipid panel [facility] Start: 10-27-2022 Hemoglobin A1c measurement A1C test (Diabetic or Prediabetic) [facility] Start: 06-17-2022 Influenza vaccination [facility] Start: 01-25-2022 Hemoglobin A1c measurement A1C test (Diabetic or Prediabetic) [facility] Start: 04-21-2021 COVID-19 Vaccine (2 - Booster for Asher series) COVID-19 Vaccine (2 - Booster for Asher series) [facility] Start: 2018 Screening for malignant neoplasm of colon [facility] Start: 2013 Lipid panel LIPID SCREENING [facility] Start: 1992 DTaP/Tdap/Td vaccine (1 - Tdap) DTaP/Tdap/Td vaccine (1 - Tdap) [facility] Start: 1992 Hepatitis B vaccine (1 of 3 - 19+ 3-dose series) Hepatitis B vaccine (1 of 3 - 19+ 3-dose series) [facility] Start: 1992 Hepatitis B vaccine (1 of 3 - Risk 3-dose series) Hepatitis B vaccine (1 of 3 - Risk 3-dose series) [facility] Start: 1992 Third diphtheria, tetanus and acellular pertussis (DTaP) vaccination TDAP (ADULT) [facility] Start: 1992 [facility] Start: 12-20-1991 Diabetic retinal exam Diabetic retinal exam [facility] Start: 12-20-1991 Glaucoma screening [facility] Start: 12-20-1991 Hepatitis C screening [facility] Start: 12-20-1991 Urine screening for protein [facility] Start: 1988 HIV screening [facility] Start: 1985 Depression Screen Depression Screen [facility] Start: 1985 [facility] Start: 12-20-1983 Diabetic foot examination [facility] Start: 12-20-1979 Pneumococcal 0-64 years Vaccine (1 - PCV) Pneumococcal 0-64 years Vaccine (1 - PCV) [facility] Start: 12-20-1979 Pneumococcal 0-64 years Vaccine (1 of 2 - PCV) Pneumococcal 0-64 years Vaccine (1 of 2 - PCV) [facility] Start: 12-20-1979 PNEUMOCOCCAL VACCINE SERIES (1 - PCV) PNEUMOCOCCAL VACCINE SERIES (1 - PCV) [facility] Start: 12-20-1979 [facility] Start: 1973 Hepatitis B vaccine (1 of 3 - 3-dose series) Hepatitis B vaccine (1 of 3 - 3-dose series) [facility] Start: 1973 Hepatitis C screening HEPATITIS C VIRUS SCREENING [facility] Start: 1973 Tetanus vaccination TETANUS [facility] Start: 1973 [facility] Bacteria identified in Blood by Culture [facility] End: 01-26-2024 Basic metabolic 2000 panel - Serum or Plasma [facility] Work Phone: End: 10-01-2024 Basic metabolic 2000 panel - Serum or Plasma Basic Metabolic Panel Lab Timed Every 4 Hours (Lab) for 3 Days starting 09/28/2024 until 10/01/2024 [facility] Comment on above: Every 4 Hours (Lab) for 3 Days starting 09/28/2024 until 10/01/2024 End: 10-09-2024 Basic metabolic 2000 panel - Serum or Plasma [facility] End: 01-19-2024 BRUCELLA SEROLOGY [facility] End: 01-25-2024 CBC W Auto Differential panel - Blood [facility] Continuous [facility] End: 09-21-2023 CT Cervical spine WO contrast [facility] Comment on above: One Time for 1 Occurrences starting 03/2023 until 09/21/2023 CT Head WO contrast CT Head W/O Contrast Imaging CODE STROKE 01/18/2024 10:52 PM EDT [facility] Culture, Blood 1 [facility] End: 09-28-2024 Culture, [facility] Comment on above: One Time for 1 Occurrences starting 09/16 until 09/28/2024 End: 09-28-2024 Culture, Blood 2 [facility] Comment on above: One Time for 1 Occurrences starting 09/16 until 09/28/2024 Culture, CSF (with G natasha Stain) [facility] End: 01-19-2024 Culture, Respiratory [facility] EKG 12 Lead EKG 12 Lead ECG STAT 01/18/2024 10:42 PM EDT [facility] E[facility] 12 Lead EKG 12 Lead ECG STAT 09/28/2024 9:20 AM EST [facility] End: 01-22-2024 Electroencephalogram w/rec awake&drowsy [facility] Glucose [Mass/volume ] in Serum or Plasma [facility] End: 09-28-2024 Glucose [Mass/volume] in Serum or Plasma [facility] Comment on above: One Time for 1 Occurrences starting 09/16 until 09/28/2024 As Needed until disc ontinued starting 09/28/2024 Glucose [Mass/volume ] in Serum or Plasma [facility] End: 09-28-2024 Hemoglobin A1c/Hemoglobin.total in Blood [facility] Comment on above: One Time for 1 Occurrences starting 09/16 until 09/28/2024 End: 09-22-2023 HERPES SIMPLEX VIRUS (HSV) TYPES 1/2, DNA PCR [facility] Comment on above: One Time for 1 Occurrences starting 04/2023 until 09/22/2023 End: 01-19-2024 Lumbar Puncture [employer] Work Phone: End: 01-26-2024 Magnesium [Mass/volume] in Serum or Plasma [facility] [employer] End: 10-01-2024 Magnesium [Mass/volume] in Serum or Plasma Magnesium Lab Timed Every 4 Hours (Lab) for 3 Days starting 09/28/2024 until 10/01/2024 ePrep Comment on above: Every 4 Hours (Lab) for 3 Days starting 09/28/2024 until 10/01/2024 Mechanical Ventilati on with default initial settings Mechanical Ventilation with default initial settings Respiratory Care STAT Every 4hr until discontinued starting 09/28/2024 ePrep Comment on above: Every 4hr until discontinued starting End: 01-23-2024 METANEPHRINES URINE [employer] End: 01-22-2024 MISCELLANEOUS SENDOUT ENC2 [facility] - autoimmune/paraneoplastic encephalitis panel [employer] MISCELLANEOUS SENDOU T [place] lab test ID: [id number] ePrep End: 01-22-2024 Oligoclonal Banding [employer] Oxygen therapy [Mini mum Data Set] [employer] Oxygen therapy [Mini mum Data Set] [facility] [employer] End: 01-26-2024 Phosphate [Mass/volume] in Serum or Plasma [facility] [employer] End: 10-01-2024 Phosphate [Mass/volume] in Serum or Plasma Phosphorus Lab Timed Every 4 Hours (Lab) for 3 Days starting 09/28/2024 until 10/01/2024 ePrep Comment on above: Every 4 Hours (Lab) for 3 Days starting 09/28/2024 until 10/01/2024 End: 01-19-2024 Q FEVER ANTIBODY [employer] End: 09-28-2024 Radiologic exam abdomen 1 view XR ABDOMEN FOR NG/OG/NE TUBE PLACEMENT Imaging Routine Once for 1 Occurrences starting 09/28/2024 until 09/28/2024 ePrep Comment on above: Once for 1 Occurrences starting 09/28/20 until 09/28/2024 End: 10-05-2024 US Heart Transesophageal [facility] End: 01-19-2024 West Nile Virus, CSF [facility] Immunizations Immunization Date Immunization Notes Care Provider Fa cility 02-24-2021 SARS-CoV-2 (COVID-19 ) Ad26 vaccine, recombinant Felix LUKE [facility] Comment on above: Result Comment: 2023: [id number] NEGATED: Highlighted row has not occurred!09-04-2019 influenza virus vaccine, unspecified formulation Felix MARLY [facility] Payers Date Payer Category Payer Unknown 1975 Unknown [id number] 2.16.84 [id number] 1975 Unknown [id number] 2.16.84 [id number] 1973 Unknown [id number] 2.16.84 0.1.623575.3.579.2.593 1973 Unknown [id number] 2.16.84 0.1.780552.3.579.2.593 1973 Unknown [id number] 2.16.84 0.1.029474.3.579.2.593 1973 Unknown [id number] 2.16.84 0.1.947532.3.579.2.593 1973 Unknown [id number] 2.16.84 0.1.664624.3.579.2.593 1973 Unknown [id number] 2.16.84 0.1.039448.3.579.2.593 1973 Unknown [id number] 2.16.84 0.1.075990.3.579.2.593 1973 Unknown [id number] 2.16.84 0.1.627540.3.579.2.593 1973 Unknown [id number] 2.16.84 0.1.556561.3.579.2.593 1973 Unknown [id number] 2.16.84 0.1.059679.3.579.2.593 1973 Unknown [id number] 2.16.84 0.1.644453.3.579.2.593 1973 Unknown [id number] 2.16.84 0.1.780673.3.579.2.593 1973 Unknown [id number] 2.16. 840.1.482340.3.579.2.196 1973 Unknown [id number] 2.16. 840.1.835929.3.579.2.196 1973 Unknown [id number] 2.16. 840.1.263172.3.579.2.196 1973 Unknown [id number] 2.16.84 0.1.484789.3.579.2.1286 1973 Unknown [id number] 2.16.8 40.1.709046.3.579.2.983 1973 Unknown [id number] 2.16.8 40.1.640733.3.579.2.727 1973 Unknown [id number] 2.16. [id number] 1975 Unknown [id number]. [id number] 1975 Unknown [id number] 2.16.8 [id number] 1975 Unknown [id number] 2.16.8 [id number] 1975 Unknown [id number] 2.16.8 [id number] 1961 Self-pay 1961 Unknown [id number]. [id number] Social History Date Type Detail Facility Start: 09-04-2019 End: 10-27-2021 Tobacco smoking status NHIS Never smoked tobacco [email or web address] Phone: Start: 10-27-2021 Tobacco use and exposure User of smokeless tobacco [email or web address] Phone: History of tobacco use Chews Tobacco [email or web address] Phone: Start: 04-04-2022 End: 10-08-2024 Alcohol intake Ex-drinker (finding) [email or web address] Phone: Start: 1975 Sex Assigned At Not on file B ON [employer] Phone: Start: 03-25-2022 End: 04-19-2022 Exposure to SARS-CoV-2 (event) Not sure [email or web address] Phone: Start: 09-23-2023 Tobacco use and exposure Smoke less tobacco non-user [employer] Start: 09-23-2023 End: 10-01-2024 History of Social function [employer] Start: 09-23-2023 End: 10-01-2024 Tobacco use panel [employer] Has the electric, [employer], [employer], or water company threatened to shut off services in your home in past 12Mo [employer] Medical Equipment Procedure Code Equipment Code Equipment Origin al Text Equipment Identifier Dates ()[id number] Start: 10-05-2024 Use it once daily [id number] Start: 10-06-2024 1 each by Does n ot apply route daily [id number] Start: 10-06-2024 Clinical Notes 04-19-2022 to 10-14-2024 Note Date & Type Note Facility 10-14-2024 Evaluation note Diagnosis Stage 3a chronic kidney disease (HCC) documented in this encounter ePrep12-21-2024 History of Present illness Narrative* Delmy Anderson [...] Tom DO - 10/06/2024 8:55 AM EST [facility] Neurology IN-PATIENT SERVICE NEUROLOGY PROGRESS NOTE [...] night. He was taken tot ED at [facility]. Found to have significant elevation in his [...] He was transferred to medical ICU at [facility]. Currently he is seen here at [facility]. Propofol drip is currently running. He [...] fluro performed by Vincent Kuhn DO at [facility] OR Medications during admission: amLODIPine 10 [...] Mental status Awake, oriented to person, place ([facility]), time (09/2024), able to name days of [...] Intact to touch, pin throughout Cerebellar Intact aytloe-cgio-btwuwr testing with mild bilateral kinetic tremor Reflex [...] report to follow. LABA1C >16.5 (H) 09/28/2024 [id number] 791 10/03/2024 MG 2.2 09/29/2024 PHOS 4.5 [...] showed no abnormalities. ADRIAN BRYANT MD Diplomate, [place] Board of Psychiatry and Neurology Diplomate, [place] Board of Clinical Neurophysiology Diplomate, [place] Board of Epilepsy Results for orders placed [...] collection present. The proximal portions of the [place] demonstrate normal flow voids. ORBITS: [...] further questions. Discussed with primary attending, Dr. Luna. In addition to seizure medications, therapeutic lifestyle changes may also reduce the likelihood ofseizures. These modifications include avoiding excessive alcohol use, obtaining adequate and appropriate sleep, and reducing stress. Seizure and epilepsy safety was also outlined. Specifically, we reviewed that he would not be able to operate a motor vehicle in the [facility] [place] until he has been seizure [...] epilepticus was discussed. Mary Lou Tom DO [facility] [place] [facility] * Chung Noel MD - 10/06/2024 [...] Week and faxed to Dr. Sanchez at [phone] . Will need to follow up with [...] Corey Echevarria MD Internal Medicine Resident, PGY-3 [facility]; [place], [place] 10/06/2024, 8:33 AM Attending Physician Statement [...] FACP 10/06/2024 4:11 PM [facility] * Drew Trudi, PT - 10/05/2024 3:32 PM EST Physical Therapy Facility/Department: [address] [facility] Physical Therapy Initial Evaluation [...] He was taken to the ED at [facility].Found to have significant elevation in his systolic [...] He was transferred to medical ICU at [facility]. Past Medical History: has a past medical [...] place Restraints Restraints Initially in Place: No [facility] Basic Mobility - Inpatient How much [...] 3-5 steps with a railing?: A Little [facility] Inpatient Mobility Raw Score : 22 [facility] Inpatient T-Scale Score : 53.28 Mobility Inpatient CMS 0-100% Score: 20.91 Mobility Inpatient [facility] G-Code Modifier : CJ Restrictions/Precautions Restrictions/Precautions Activity [...] Level of Assist for Transfers: Independent Active Tong Carrier: Yes Mode of Transportation: Truck 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 I called Laura at [phone]. We discussed monitoring blood sugar and taking [...] who was admitted as a transfer from [facility] on 09/28/2024 for management of hypertensive encephalopathy and DKA. As per medical records daughter found the patient confused on the bathroom floor covered in urine and feces. Last known well was the night of 09/27/2024; unsure about exact time. Family reported similar prior episodes in the setting of medication noncompliance. EMS were called who transferred the patient to [facility] on the morning of 09/28/2024. Upon arrival [...] while intubated. Patient was transferred to [facility] for ICU admis george on [...] patient had a similar admission in09/2023 at [facility] with hypertensive crisis, acute respiratory failure requiring [...] intrarticular hip aspiration under fluro performed by iVncent Kuhn DO at [facility] OR PHYSICAL EXAM: Blood pressure (!) [...] 10/05/2024 TSH 1.19 10/03/2024 INR 1.1 10/04/2024 [id number] 791 10/03/2024 FOLATE 11.5 10/03/2024 LABA1C 09/28/2024 [...] to ensure the accuracy of this automated mud plant operator, some errors in mud plant operator may have occurred. Associated attestation - Mary [...] from the original note were not included. [facility] Office: [phone] Andrew Hernandez DO, Ernie Escalante DO, Hal [...] Ludmila Best DO, Bradly Nassar MD, Sarita Mcmullen,SUPERVISOR BODY ASSEMBLY, Linda Lynch CNP, Ludmila Aguilera SUPERVISOR BODY ASSEMBLY, Lina Morgan, JENNA, Nini Raya, SUPERVISOR BODY ASSEMBLY, Giuliana Mae, SUPERVISOR BODY ASSEMBLY, Myra Almodovar, SUPERVISOR BODY ASSEMBLY, Suzy Dooley, SUPERVISOR BODY ASSEMBLY, Gaviota Rich PASulaimanC, GLADIS FosterC, Shelly Rainey,SUPERVISOR BODY ASSEMBLY, Manny Laura, SUPERVISOR BODY ASSEMBLY, Yenny Motta, SUPERVISOR BODY ASSEMBLY, Claudine Parrish, SUPERVISOR BODY ASSEMBLY, Maame Carter, SUPERVISOR BODY ASSEMBLY, Edilma Garza, SUPERVISOR BODY ASSEMBLY [facility] IN-PATIENT SERVICE [facility] Progress Note 10/05/2024 10:48 AM Name: Ortiz Gorman Acct: [id number] Room: [address] [place] [address] Day: 7 Admit Date: 09/28/2024 2:35 PM PCP: Vincent Winters MD Code Status: Full Code Subjective: C/C: SOB Interval History Status: improved. Patient seen and examined at bedside, no acute events overnight. He just came back from cardiac Internal [employer] where he had loop recorder placed, tolerated [...] 09:42 AM POCPCO2 33.7 10/01/2024 04:26 AM BLA0COP 35.2 09/28/2024 09:42 AM POCPO2 143.0 10/01/2024 04:26 AM PO2ART 72.2 09/28/2024 09:42 AM POCHCO3 25.1 10/01/2024 04:26 AM ROH5QRG 20.6 09/28/2024 09:42 AM NBEA 3.7 09/28/2024 09:42 AM PBEA 1.5 10/01/2024 04:26 AM PUGW6LVJ 99.4 10/01/2024 04:26 AM O4XCUMRM 94.5 09/28/2024 09:42 AM FIO2 30.0 10/01/2024 [...] DKA, type 2, not at goal ([facility]) 09/28/2024 Yes NSTEMI (non-ST elevated myocardial infarction) ([facility]) 09/29/2024 Yes Acute metabolic encephalopathy 09/30/2024 Yes Acute hypoxemic respiratory failure 09/28/2024 Yes Abnormal finding on MRI of brain 10/01/2024 Yes Abnormal electrocardiography 10/03/2024 Yes ABHIJIT (acute kidney injury) ([facility]) 10/04/2024 Yes Stage 3 chronic kidney disease ([facility]) 10/04/2024 Yes Hypertension 10/04/2024 Yes Seizures ([facility]) 10/04/2024 Yes Plan: DKA NSTEMI Hypertensive Emergency [...] home and giving insulin, patient verbalized understanding. Cement Contractor reached out to diabetes education for physical copies of information and patient daughter Shania was requesting information and education. Diabetes education dropped off information for Shania and also educated over the phone. 1700: Patient, daughter Shania, and patient girlfriend in room for education regarding medication compliance and what should be expected at home. Patient and visitors verbalized understanding. Cement Contractor and visitors made a plan for discharge for patient daughter to be present in the discharge informationeducation since he will be living with her. Patient agreeable at this time. * Aleja Wagoner APRN - SARAH - 10/04/2024 2:59 PM EST Images from the original note were not included. [place] [employer] Progress Note Date: 10/04/2024 Patient name: Ortiz [...] ms QTc Calculation (Bazett) 456 ms P [place] 79 degrees R [place] 68 degrees T [place] 68 degrees Narrative Sinus tachycardia Possible Left atrial enlargement Nonspecific ST abnormality Abnormal ECG No previous ECGs available Echo: Results for orders placed or performed during the hospital encounter of 10/27/21 Echocardiogram complete 2D with doppler with color Result Value Ref Range Left Ventricular Ejection Fraction 60 LVEF MODALITY ECHO Narrative [facility] Transthoracic Echocardiography Report (TTE) Patient Name SHERIF Date of Study 10/30/2021 ORTIZ Quezada Date of 1975 Gender Male Age 45 year(s) Race Room Number I307 Height: 71 inch, 180.34 cm Corporate ID [id number] Weight: 174 pounds, 78.9 kg # Patient Acct [id number] BSA: 1.99 m^2 BMI: 24.27 # kg/m^2 MR # [id number] Wireless Development Manager Raysa De La Torre Interpreting Physician Sammie Sher Fellow Referring Nurse Sarita Arzola CNP Practitioner Interpreting Referring Physician Fellow Type of Study TTE procedure:2D Echocardiogram, M-Mode, Doppler, Color Doppler. Procedure Date Date: 10/30/2021 Start: 02:34 PM Study Location: [facility] Indications:Tachycardia. History / Tech. Comments: Dx: [...] DKA, type 2, not at goal ([facility]) 09/28/2024 Yes NSTEMI (non-ST elevated myocardial infarction) ([facility]) 09/29/2024 Yes Acute metabolic encephalopathy 09/30/2024 Yes Acute hypoxemic respiratory failure 09/28/2024 Yes Abnormal finding on MRI of brain 10/01/2024 Yes Abnormal electrocardiography 10/03/2024 Yes ABHIJIT (acute kidney injury) ([facility]) 10/04/2024 Yes Stage 3 chronic kidney disease ([facility]) 10/04/2024 Yes Hypertension 10/04/2024 Yes Seizures ([facility]) 10/04/2024 Yes Assessment: Elevated Troponins- likely type II [place] HTN emergency- off cardene drip AMS-extubated on [...] , please keep patient NPO after midnight [place] [employer] [phone] * Joseline Teague RN - 10/04/2024 1:31 [...] she may because she works in a longterm. Ortiz states that prior to admission, he typically gave insulin to himself. It may be best for the patient to have support upon returning home to ensure consistency with his diabetes care. Educational materials previously given remain at bedside. Will sign off. Please refer again if needed or call [phone] if family requests diabetes education. Thank you [...] from the original note were not included. [facility] Office: [phone] Andrew Hernandez DO, Ernie Escalante DO, Hal [...] PARKER, Suzy Dooley, PARKER, GLADIS RankinC, GLADIS FosterC, Shelly Rainey CNP, Manny Laura CNP, Yenny Motta CNP, Claudine Parrish CNP, Maame Carter CNP, Edilma Garza, PARKER [facility] IN-PATIENT SERVICE [facility] Progress Note 10/04/2024 10:02 AM Name: Ortiz Gorman Acct: [id number] Room: [address] [place] [address] Day: 6 Admit Date: 09/28/2024 2:35 PM [...] 09:42 AM POCPCO2 33.7 10/01/2024 04:26 AM SOL5PUQ 35.2 09/28/2024 09:42 AM POCPO2 143.0 10/01/2024 04:26 AM PO2ART 72.2 09/28/2024 09:42 AM POCHCO3 25.1 10/01/2024 04:26 AM GRW7RFB 20.6 09/28/2024 09:42 AM NBEA 3.7 09/28/2024 09:42 AM PBEA 1.5 10/01/2024 04:26 AM JDLL4WFG 99.4 10/01/2024 04:26 AM F4MTZYEY 94.5 09/28/2024 09:42 AM FIO2 30.0 10/01/2024 [...] DKA, type 2, not at goal ([facility]) 09/28/2024 Yes NSTEMI (non-ST elevated myocardial infarction) ([facility]) 09/29/2024 Yes Acute metabolic encephalopathy 09/30/2024 Yes [...] Corey Echevarria MD Internal Medicine Resident, PGY-3 [facility]; [place], [place] 10/04/2024, 9:11 AM Attending Physician Statement I have discussed the care of Ortiz Gorman, including pertinent history and exam findings with theresident/midlevel practitioner I have reviewed the swartz elements of all parts of the encounter with the resident/fellow. I have seen and examined the patient with the resident/fellow. I agree with theassessment, plan and orders as documented by the resident/midlevel practitioner. Carmencita Maat MD * Mary Lou Tom DO - 10/04/2024 8:45 AM EST [facility] Neurology IN-PATIENT SERVICE NEUROLOGY PROGRESS NOTE [...] night. He was taken tothe ED at [facility]. Found to have significant elevation in his [...] He was transferred to medical ICU at [facility]. Currently he is seen here at [facility]. Propofol drip is currently running. He [...] fluro performed by Vincent Kuhn DO at [facility] OR Medications during admission: levoFLOXacin 250 [...] Mental status Awake, oriented to person, place ([facility]), time (09/2024), following all commands; speech is [...] Intact to touch, pin throughout Cerebellar Intact idjtwj-xeni-uaaahc testing with mild bilateral kinetic tremor Reflex [...] report to follow. LABA1C >16.5 (H) 09/28/2024 [id number] 791 10/03/2024 MG 2.2 09/29/2024 PHOS 4.5 [...] showed no abnormalities. ADRIAN BRYANT MD Diplomate, [place] Board of Psychiatry and Neurology Diplomate, [place] Board of Clinical Neurophysiology Diplomate, [place] Board of Epilepsy Please note this is [...] collection present. The proximal portions of the [place] demonstrate normal flow voids. ORBITS: [...] attending, Dr. Luna. Mary Lou Tom DO [facility] Neurology * Delmy Anderson, RN - 10/04/2024 3:35 AM EST 0245 - RN to bedside to find pt attempting to exit the bed and disconnected from LTME. Neuro resident aware. 0255 - yard caller pharmacy technician called to replace LTME monitoring. 0257 - yard caller pharmacy technician stated they would come replace LTME monitoring. 0444 - RN messaged pharmacy technician asking for an updated eta to replace monitoring. 0445 - yard caller tech stated they will be here in [...] from the original note were not included. [facility] Occupational Therapy Not Seen Note DATE: 10/03/2024 [...] 1400 pt stated he knows he's at [facility] in [place] and that today Tuesday, September 2024. Pt is calm and pleasant but convinced that he was in a football field and got spray painted with red paint. Pt continues to ask for his cellphone and hat, neither of which are here. * Aleja Wagoner APRN - SARAH - 10/03/2024 12:00 PM EST Images from the original note were not included. [place] [employer] Progress Note Date: 10/03/2024 Patient name: Ortiz [...] ms QTc Calculation (Bazett) 456 ms P [place] 79 degrees R [place] 68 degrees T [place] 68 degrees Narrative Sinus tachycardia Possible Left atrial enlargement Nonspecific ST abnormality Abnormal ECG No previous ECGs available Echo: Results for orders placed or performed during the hospital encounter of 10/27/21 Echocardiogram complete 2D with doppler with color Result Value Ref Range Left Ventricular Ejection Fraction 60 LVEF MODALITY ECHO Narrative [facility] Transthoracic Echocardiography Report (TTE) Patient Name SHERIF Date of Study 10/30/2021 ORTIZ Quezada Date of 1975 Gender Male Age 45 year(s) Race Room Number I307 Height: 71 inch, 180.34 cm Corporate ID [id number] Weight: 174 pounds, 78.9 kg # Patient Acct [id number] BSA: 1.99 m^2 BMI: 24.27 # kg/m^2 MR # [id number] Wireless Development Manager Britt,Raysa Interpreting Physician Sammie Sher Fellow Referring Nurse Sarita Arzola CNP Practitioner Interpreting Referring Physician Fellow Type of Study TTE procedure:2D Echocardiogram, M-Mode, Doppler, Color Doppler. Procedure Date Date: 10/30/2021 Start: 02:34 PM Study Location: [facility] Indications:Tachycardia. History / Tech. Comments: Dx: [...] DKA, type 2, not at goal ([facility]) 09/28/2024 Yes NSTEMI (non-ST elevated myocardial infarction) ([facility]) 09/29/2024 Yes Acute metabolic encephalopathy 09/30/2024 Yes Acute hypoxemic respiratory failure 09/28/2024 Yes Abnormal finding on MRI of brain 10/01/2024 Yes Assessment: Elevated Troponins- likely type II IL HTN emergency- off cardene drip AMS-extubated on 10/01 ABHIJIT Sepsis 2/2 pneumonia DKA Normal TTE 01/2024 Plan: Hemodynamically stable - continue asa , statin Norvasc and coreg ECHO as above Volume management per nephrology Awaiting stress test if low risk then can be discharged from cardiac standpoint [place] [employer] [phone] * Jerod De La Cruz, [facility] - 10/03/2024 10:18 AM EST Pharmacy Note [...] Levofloxacin 250 mg daily Jer[facility] Pryor, [facility]D, [facility] 10/03/2024 10:18 AM * Sunshine Carmona RD [...] mg/dL. Estimated Daily Nutrient Needs: Energy (kcal): 9809-6182 kcal/d Weight Used for Energy Requirements: Current [...] time Sunshine Carmona, MS, RDN, LDN Contact: [phone] * Joseline Teague RN - 10/03/2024 8:26 [...] She took my number (Diabetes Education Ph. [phone]) and the plan is that she will [...] Pt life flighted [facility] ER admitted to 3002: Diabetic ketoacidosis [...] from the original note were not included. [facility] Office: [phone] Andrew Hernandez DO, Ernie Escalante DO, Hal [...] CNP, Maame Carter CNP, Edilma Garza, PARKER [facility] IN-PATIENT SERVICE [facility] Progress Note 10/03/2024 8:10 AM Name: Ortiz Gorman Acct: [id number] Room: 0165/0165-01 Day: 5 Admit Date: 09/28/2024 [...] 09:42 AM POCPCO2 33.7 10/01/2024 04:26 AM QSZ1FAL 35.2 09/28/2024 09:42 AM POCPO2 143.0 10/01/2024 04:26 AM PO2ART 72.2 09/28/2024 09:42 AM POCHCO3 25.1 10/01/2024 04:26 AM GCN2HMJ 20.6 09/28/2024 09:42 AM NBEA 3.7 09/28/2024 09:42 AM PBEA 1.5 10/01/2024 04:26 AM MQHO4SPE 99.4 10/01/2024 04:26 AM Z4LMKYHV 94.5 09/28/2024 09:42 AM FIO2 30.0 10/01/2024 [...] DKA, type 2, not at goal ([facility]) 09/28/2024 Yes NSTEMI (non-ST elevated myocardial infarction) ([facility]) 09/29/2024 Yes Acute metabolic encephalopathy 09/30/2024 Yes [...] MD 10/03/2024 8:10 AM * Marce Restrepo, AIRCRAFT STRUCTURAL REPAIR MECHANIC - SUPERVISOR BODY ASSEMBLY - 10/03/2024 7:47 AM EST NEUROLOGY INPATIENT [...] slurring his words. He was taken to [facility] where he was found to have significantly elevated SBP greater than 250s, glucose was 820. He was also found to have ABHIJIT, elevated troponins, lactic acidosis, and ABG consistent with hypoxemia. Danielleoes have a history of medication noncompliance. He was intubated for airway protection, sedated, and transferred to [facility] to the ICU. MRI brain [...] fluro performed by Vincent Kuhn DO at [facility] OR Social History: Ortiz Gorman reports [...] to ensure the accuracy of this automated mud plant operator, some errors in mud plant operator may have occurred. Associated attestation - Mary [...] and pt stated he was at the [facility] near the [employer]QS track. RN attempted to reorient the pt and pt continued to reiterate that he was [facility] RN's repositioned pt in bed and [...] per DKA orderset. Pt life flighted from [facility] to [facility] ER admitted to 3002: Diabetic ketoacidosis [...] a more appropriate time. * Aleja Wagoner, AIRCRAFT STRUCTURAL REPAIR MECHANIC - DRAPERY AND UPHOLSTERY ESTIMATOR - 10/02/2024 3:02 PM EST Images from the original note were not included. [employer] Progress Note Date: 10/02/2024 Patient name: Ortiz [...] ms QTc Calculation (Bazett) 456 ms P [place] 79 degrees R [place] 68 degrees T [place] 68 degrees Narrative Sinus tachycardia Possible Left atrial enlargement Nonspecific ST abnormality Abnormal ECG No previous ECGs available Echo: Results for orders placed or performed during the hospital encounter of 10/27/21 Echocardiogram complete 2D with doppler with color Result Value Ref Range Left Ventricular Ejection Fraction 60 LVEF MODALITY ECHO Narrative [facility] Transthoracic Echocardiography Report (TTE) Patient Name SHERIF Date of Study 10/30/2021 ORTIZ Quezada Date of 1975 Gender Male Age 45 year(s) Race Room Number I307 Height: 71 inch, 180.34 cm Corporate ID [id number] Weight: 174 pounds, 78.9 kg # Patient Acct [id number] BSA: 1.99 m^2 BMI: 24.27 # kg/m^2 MR # [id number] Wireless Development Manager Raysa De La Torre Interpreting Physician Sammie Sher Fellow Referring Nurse Sarita Arzola CNP Practitioner Interpreting Referring Physician Fellow Type of Study TTE procedure:2D Echocardiogram, M-Mode, Doppler, Color Doppler. Procedure Date Date: 10/30/2021 Start: 02:34 PM Study Location: [facility] Indications:Tachycardia. History / Tech. Comments: Dx: [...] DKA, type 2, not at goal ([facility]) 09/28/2024 Yes NSTEMI (non-ST elevated myocardial infarction) ([facility]) 09/29/2024 Yes Acute metabolic encephalopathy 09/30/2024 Yes Acute hypoxemic respiratory failure 09/28/2024 Yes Abnormal finding on MRI of brain 10/01/2024 Yes Assessment: Elevated Troponins- likely type II [place] HTN emergency- off cardene drip AMS-extubated on 10/01 ABHIJIT Sepsis 2/2 pneumonia DKA Normal TTE 01/2024 Plan: Hemodynamically stable - continue asa , statin Norvasc and coreg ECHO as above Volume management per nephrology Will plan for stress test in am if low risk then can be discharged from cardiac standpoint [place] [employer] [phone] * Felix Hernandez DO - 10/02/2024 1:04 PM EST Images from the original note were not included. [facility] Office: [phone] Andrew Hernandez DO, Ernie Escalante DO, Hal [...] CNP, Linda Lynch CNP, Ludmila Aguilera CNP, Lnia Morgan DNP, Nini Raya CNP, Giuliana Mae CNP, Myra Almodovar CNP, Suzy Dooley, PARKER, Gaviota Rich, GLADISC, Carley So, PASulaimanC, Shelly Rainey,PARKER, Manny Laura CNP, Yenny Motta, PARKER, Claudine Parrish CNP, Maamedenise Carter CNP, Cindy Stives, CNP [facility] IN-PATIENT SERVICE [facility] Progress Note 10/02/2024 1:05 PM Name: Ortiz Gorman Acct: [id number] Room: 0165/0165-01 Day: 4 Admit Date: 09/28/2024 [...] 09:42 AM POCPCO2 33.7 10/01/2024 04:26 AM EMX4UCT 35.2 09/28/2024 09:42 AM POCPO2 143.0 10/01/2024 04:26 AM PO2ART 72.2 09/28/2024 09:42 AM POCHCO3 25.1 10/01/2024 04:26 AM FXX7WPY 20.6 09/28/2024 09:42 AM NBEA 3.7 09/28/2024 09:42 AM PBEA 1.5 10/01/2024 04:26 AM DQTS6BGB 99.4 10/01/2024 04:26 AM J3JMFPDC 94.5 09/28/2024 09:42 AM FIO2 30.0 10/01/2024 [...] DKA, type 2, not at goal ([facility]) 09/28/2024 Yes NSTEMI (non-ST elevated myocardial infarction) ([facility]) 09/29/2024 Yes Acute metabolic encephalopathy 09/30/2024 Yes Acute hypoxemic respiratory failure 09/28/2024 Yes Abnormal finding on MRI of brain 10/01/2024 Yes Plan: Diabetic ketoacidosis/diabetes mellitus DKA resolved Continue Lantus and sliding scale Outpatient follow-up with outreach educator Essential hypertension Medications adjusted Monitor and titrate [...] Patient's name: Ortiz Gorman Patient's account/billing number: [id number] Patient's Date of : 1975 Age: 48 [...] Noted NSTEMI (non-ST elevated myocardial infarction) ([facility]) 09/29/2024 Abnormal finding on MRI of brain 10/01/2024 DKA, type 2, not at goal ([facility]) 09/28/2024 Acute hypoxemic respiratory failure 09/28/2024 Central apnea 01/22/2024 Acute metabolic encephalopathy 01/19/2024 Hypertensive emergency 01/19/2024 Fever 01/19/2024 Altered mental status 01/19/2024 Encephalopathy acute 01/19/2024 Hypertensive urgency 01/19/2024 Lactic acidosis 01/19/2024 Bacteremia due to Staphylococcus aureus Sinus tachycardia Mild malnutrition ([facility]) 10/28/2021 Diabetic acidosis without coma ([facility]) 10/27/2021 Additional assessment: Neuro: cont asa, lipitor CV: Amlodipine 5mg daily, Coreg 25mg daily, Losartan 25mg daily GI: DM diet ID: Zosyn for pneumonia Endo: Lantus 25u AM, MDSSI DVT ppx: Hep 5k TID Recommended Follow-up: Cardiology for stress test Nephrology for ABHIJIT, though resolving Neuro: consider 30d delimer at [facility] 4wks Above mentioned assessment and plan was discussed by me with the admitting medicine resident. The medicine team assigned to the patient by medicine admitting resident will be following up the patientfrom now onwards on the floor. Ludmila Rajput MD, M.D. Critical care resident Department of Internal Medicine/ Critical care [facility]) 10/02/2024, 10:32 AM * Chung Noel [...] FACP 10/02/2024 9:04 AM [facility] * Marce Restrepo, AIRCRAFT STRUCTURAL REPAIR MECHANIC - SUPERVISOR BODY ASSEMBLY - 10/02/2024 9:00 AM EST NEUROLOGY INPATIENT PROGRESS NOTE 10/02/2024 Current Exam: Chart reviewed. Discussed with RN. Patient was extubated yesterday. He is oriented but gives off topic responses at times to questions. He denies any headache or focal weakness. No seizure activity. He admits to medication non compliance HIV NURSE. Brief History: Ortiz Gorman is a 48 y.o. male with H/O DM, who was admitted on 09/28/2024 after being found downat home, reportedly covered in feces, confused, and slurring his words. He was taken to [facility] where he was found to have significantly elevated SBP greater than 250s, glucose was 820. He was also found to have ABHIJIT, elevated troponins, lactic acidosis, and ABG consistent with hypoxemia. Hedoes have a history of medication noncompliance. He was intubated for airway protection, sedated, and transferred to [facility] to the ICU. MRI brain [...] fluro performed by Vincent Kuhn DO at [facility] OR Social History: Ortiz Gorman reports [...] to ensure the accuracy of this automated mud plant operator, some errors in mud plant operator may have occurred. Associated attestation - Mary [...] Continue asa and statin. Recommend 30 [place] Can consider LOOP recorder as outpatient if [...] hypertension who presents as a transfer from [facility]. He was brought to the ED department [...] for ABHIJIT. Voiding spontaneously. Plan to transferto [place] today OBJECTIVE: VITAL SIGNS: BP (!) 140/75 [...] Date 10/02/24 0000 - 10/02/24 2359 Shift 8779-7619 8488-3486 3284-8514 24 Hour Total INTAKE P.O.(mL/kg/hr) 500 500 [...] Value Date/Time PHART 7.385 09/28/2024 09:42 AM IDO9DWH 35.2 09/28/2024 09:42 AM PO2ART 72.2 09/28/2024 09:42 AM WZS5DAB 20.6 09/28/2024 09:42 AM S4KAMXFL 94.5 09/28/2024 09:42 AM FIO2 30.0 10/01/2024 [...] Procedure Component Value Units Date/Time Culture, Respiratory [[id number]] (Abnormal) Collected: 09/28/242053 Order Status: Completed Specimen: Respiratory specimen from Tracheal Aspirate Updated: 09/30/24 0903 Specimen Description .TRACHEAL ASPIRATE Special Requests Site: Respiratory specimen Direct Exam < 10 EPITHELIAL CELLS/LPF >10, <25 NEUTROPHILS/LPF FEW GRAM POSITIVE COCCI IN PAIRS Culture NORMAL RESPIRATORY AYDEN LIGHT GROWTH MRSA DNA Probe, Nasal [[id number]] Collected: 09/28/24 1638 Order Status: Completed Specimen: [...] treatment for MRSA infections. LEGIONELLA ANTIGEN, URINE [[id number]] Collected: 09/28/24 1625 Order Status: Completed Specimen: Urine Updated: 12/13/24 1757 Legionella Pneumophilia Ag, Urine NEGATIVE Comment: L. pneumophila serogroup 1 antigen not detected. A negative result does not exclude infection with Leginella pnemophila serogroup 1 nor does it rule out other microbial-caused respiratory infections of disease caused by other serogroups of Legionella pneumophila. Strep Pneumoniae Antigen [[id number]] Collected: 09/28/24 162 Order Status: Completed Specimen: Urine, clean catch Updated: 09/28/241754 Source .URINE Strep pneumo Ag NEGATIVE Comment: Strep pneumoniae antigen not detected Respiratory Panel, Molecular, with COVID-19 (Restricted: peds pts or suitable admitted adults) [[id number]] Collected: 09/28/24 162 Order Status: Completed Specimen: [...] multiplexed nucleic acid assay. Culture, Blood 1 [[id number]] (Abnormal) (Susceptibility) Collected: 09/28/24 0839 Order Status: [...] to and read back by:YECENIA JOHNSON RN, [facility], 09/29/24 0745, RB DJR Susceptibility Enterococcus avium BACTERIAL SUSCEPTIBILITY PANEL MARINE ampicillin <=2 Sensitive Gentamicin, High Level Sensitive Streptomycin, Hi Level Sensitive vancomycin <=0.5 Sensitive Culture, Blood 2 [[id number]] Collected: 09/28/24 0834 Order Status: Completed Specimen: [...] PROPHYLAXIS: Stress ulcer: [x] PPI Agent [] B6Wtkef [] Sucralfate [] Other: VTE: [] Enoxaparin [...] Mycoplasma, Legionella. MRSA negative CV: BP at [facility] was 225/110 and started on cardene drip [...] pertinent history and exam findings with theresident/fellow/medical student/DRAPERY AND UPHOLSTERY ESTIMATOR/PA. I have seen and examined the patient and the swartz elements ofthe encounter have been performed by me. I agree with the assessment, plan and orders as documentedby the resident/fellow/medical student/DRAPERY AND UPHOLSTERY ESTIMATOR/PA With changes made to the note as [...] pump inhibitor Patient can be transferred to [facility] bed We will sign off when the [...] corrected by editing Chung Noel MD MD, [facility] (), FACP 10/01/2024 10:15 AM [facility] * Marce Restrepo, AIRCRAFT STRUCTURAL REPAIR MECHANIC - SUPERVISOR BODY ASSEMBLY - 10/01/2024 9:41 AM EST NEUROLOGY INPATIENT [...] slurring his words. He was taken to [facility] where he was found to have significantly elevated SBP greater than 250s, glucose was 820. He was also found to have ABHIJIT, elevated troponins, lactic acidosis, and ABG consistent with hypoxemia. Nesha have a history of medication noncompliance. He was intubated for airway protection, sedated, and transferred to [facility] to the ICU. MRI brain [...] fluro performed by Vincent Kuhn DO at [facility] OR Social History: Ortiz Gorman reports [...] to ensure the accuracy of this automated mud plant operator, some errors in mud plant operator may have occurred. Associated attestation - Mary [...] with no acute findings. [place] 30 [place] Will recommend repeat MRI brain in 4 weeks as an outpatient. Counseled extensively regarding medication compliance and risk of continued cerebrovascular and cardiovascular complications. Mary Lou Tom, 10/01/2024 9:35 PM * Joseline Teague RN - 10/01/2024 9:05 AM EST Inpatient Diabetes Education Rounded on Ortiz Gorman. [...] per DKA orderset. Pt life flighted from [facility] to [facility] ER admitted to 3002: Diabetic ketoacidosis [...] Progress Note PATIENT: ORTIZ GORMAN CSN #: [id number] : 1975 ADMIT DATE: 09/28/2024 2:35 PM DISCH DATE: RESPONDING PROVIDER #: SUSSY MTZ QUERY TEXT: Pt admitted with DKA, possible pneumonia. Noted documentation of Sepsis 2/2 pneumonia on 09/29-09/30 by ordered datastage consultant. If possible, please document in progress [...] the original note were not included. Ailyn Mine Foreman Progress Note Date: 10/01/2024 Patient name: Ortiz [...] ms QTc Calculation (Bazett) 456 ms P [place] 79 degrees R [place] 68 degrees T [place] 68 degrees Narrative Sinus tachycardia Possible Left atrial enlargement Nonspecific ST abnormality Abnormal ECG No previous ECGs available Echo: Results for orders placed or performed during the hospital encounter of 10/27/21 Echocardiogram complete 2D with doppler with color Result Value Ref Range Left Ventricular Ejection Fraction 60 LVEF MODALITY ECHO Narrative [facility] Transthoracic Echocardiography Report (TTE) Patient Name SHERIF Date of Study 10/30/2021 ORTIZ Quezada Date of 1975 Gender Male Age 45 year(s) Race Room Number I307 Height: 71 inch, 180.34 cm Corporate ID [id number] Weight: 174 pounds, 78.9 kg # Patient Acct [id number] BSA: 1.99 m^2 BMI: 24.27 # kg/m^2 MR # [id number] Wireless Development Manager Britt,Raysa Interpreting Physician Sammie Sher Fellow Referring Nurse Sarita Arzola CNP Practitioner Interpreting Referring Physician Fellow Type of Study TTE procedure:2D Echocardiogram, M-Mode, Doppler, Color Doppler. Procedure Date Date: 10/30/2021 Start: 02:34 PM Study Location: [facility] Indications:Tachycardia. History / Tech. Comments: Dx: [...] DKA, type 2, not at goal ([facility]) 09/28/2024 Yes NSTEMI (non-ST elevated myocardial infarction) ([facility]) 09/29/2024 Yes Acute metabolic encephalopathy 09/30/2024 Yes Acute hypoxemic respiratory failure 09/28/2024 Yes Assessment: Elevated Troponins- likely type II [place] HTN emergency- off cardene drip AMS-extubated on [...] With changes made to the note. . [place] [employer]man [phone] * Sirena Sanchez MD - 10/01/2024 7:16 [...] hypertension who presents as a transfer from [facility]. He was brought to the ED department [...] Date 10/01/24 0000 - 10/01/24 2359 Shift 2816-0202 2901-3649 8964-1002 24 Hour Total INTAKE I.V.(mL/kg) 1283.3(15.5) 294(3.5) [...] Value Date/Time PHART 7.385 09/28/2024 09:42 AM AUJ4HWZ 35.2 09/28/2024 09:42 AM PO2ART 72.2 09/28/2024 09:42 AM QOA9PEP 20.6 09/28/2024 09:42 AM M9GFWGOB 94.5 09/28/2024 09:42 AM FIO2 30.0 10/01/2024 [...] Procedure Component Value Units Date/Time Culture, Respiratory [[id number]] (Abnormal) Collected: 09/28/242053 Order Status: Completed Specimen: Respiratory specimen from Tracheal Aspirate Updated: 09/30/24 0903 Specimen Description .TRACHEAL ASPIRATE Special Requests Site: Respiratory specimen Direct Exam < 10 EPITHELIAL CELLS/LPF >10, <25 NEUTROPHILS/LPF FEW GRAM POSITIVE COCCI IN PAIRS Culture NORMAL RESPIRATORY AYDEN LIGHT GROWTH MRSA DNA Probe, Nasal [[id number]] Collected: 09/28/241637 Order Status: Completed Specimen: Nares [...] treatment for MRSA infections. LEGIONELLA ANTIGEN, URINE [[id number]] Collected: 09/28/241624 Order Status: Completed Specimen: Urine Updated: 09/28/241756 Legionella Pneumophilia Ag, Urine NEGATIVE Comment: L. pneumophila serogroup 1 antigen not detected. A negative result does not exclude infection with Leginella pnemophila serogroup 1 nor does it rule out other microbial-caused respiratory infections of disease caused by other serogroups of Legionella pneumophila. Strep Pneumoniae Antigen [[id number]] Collected: 09/28/241623 Order Status: Completed Specimen: Urine, clean catch Updated: 09/28/241754 Source .URINE Strep pneumo Ag NEGATIVE Comment: Strep pneumoniae antigen not detected Respiratory Panel, Molecular, with COVID-19 (Restricted: peds pts or suitable admitted adults) [[id number]] Collected: 09/28/24 1620 Order Status: Completed Specimen: [...] multiplexed nucleic acid assay. Culture, Blood 1 [[id number]] (Abnormal) (Susceptibility) Collected: 09/28/2439 Order Status: Completed [...] Sensitive vancomycin <=0.5 Sensitive Culture, Blood 2 [[id number]] Collected: 09/28/24 0834 Order Status: Completed Specimen: [...] Noted NSTEMI (non-ST elevated myocardial infarction) ([facility]) 09/29/2024 DKA, type 2, not at goal ([facility]) 09/28/2024 Acute hypoxemic respiratory failure 09/28/2024 Central apnea 01/22/2024 Acute metabolic encephalopathy 01/19/2024 Hypertensive emergency 01/19/2024 Fever 01/19/2024 Altered mental status 01/19/2024 Encephalopathy acute 01/19/2024 Hypertensive urgency 01/19/2024 Lactic acidosis 01/19/2024 Bacteremia due to Staphylococcus aureus Sinus tachycardia Mild malnutrition ([facility]) 10/28/2021 Diabetic acidosis without coma ([facility]) 10/27/2021 PLAN: WEAN PER PROTOCOL: [] No [x] Yes [] N/A ICU PROPHYLAXIS: Stress ulcer: [x] PPI Agent [] F0Tnisl [] Sucralfate [] Other: VTE: [] Enoxaparin [...] Bowel management: Glycolax PRN Indwelling catheter: ETT, Lin, OG Drug De-escalation: Wean sedation with hopes [...] Mycoplasma, Legionella. MRSA negative CV: BP at [facility] was 225/110 and started on cardene drip [...] pertinent history and exam findings with theresident/fellow/medical student/DRAPERY AND UPHOLSTERY ESTIMATOR/PA. I have seen and examined the patient and the swartz elements ofthe encounter have been performed by me. I agree with the assessment, plan and orders as documentedby the resident/fellow/medical student/DRAPERY AND UPHOLSTERY ESTIMATOR/PA With changes made to the note as [...] Brown DO - 09/30/2024 1:13 PM EST [facility] Neurology IN-PATIENT SERVICE NEUROLOGY PROGRESS NOTE [...] night. He was taken tot ED at [facility]. Found to have significant elevation in his [...] He was transferred to medical ICU at [facility]. Currently he is seen here at [facility]. Propofol drip is currently running. He [...] fluro performed by Vincent Kuhn DO at [facility] OR Medications during admission: insulin [...] collection present. The proximal portions of the [place] of [place] demonstrate normal flow voids. ORBITS: [...] will continue to follow. Addy Brown DO [facility] [place] [facility] * Sussy Mtz MD - 09/30/2024 [...] hypertension who presents as a transfer from [facility]. He was brought to the ED department [...] Date 09/30/24 0000 - 09/30/24 2359 Shift 6370-6509 5345-6540 4475-3498 24 Hour Total INTAKE I.V.(mL/kg) 233.8(2.8) 233.8(2.8) [...] Value Date/Time PHART 7.385 09/28/2024 09:42 AM GED3DLO 35.2 09/28/2024 09:42 AM PO2ART 72.2 09/28/2024 09:42 AM QAZ6IZW 20.6 09/28/2024 09:42 AM P1CATDOM 94.5 09/28/2024 09:42 AM FIO2 30.0 09/30/2024 [...] Procedure Component Value Units Date/Time Culture, Respiratory [[id number]] (Abnormal) Collected: 09/28/242053 Order Status: Completed Specimen: Respiratory specimen from Tracheal Aspirate Updated: 09/29/24 1211 Specimen Description .TRACHEAL ASPIRATE Special Requests Site: Respiratory specimen Direct Exam < 10 EPITHELIAL CELLS/LPF >10, <25 NEUTROPHILS/LPF FEW GRAM POSITIVE COCCI IN PAIRS Culture CULTURE IN PROGRESS MRSA DNA Probe, Nasal [[id number]] Collected: 09/28/24 1638 Order Status: Completed Specimen: [...] treatment for MRSA infections. LEGIONELLA ANTIGEN, URINE [[id number]] Collected: 09/28/241624 Order Status: Completed Specimen: Urine Updated: 09/28/24 175 Legionella Pneumophilia Ag, Urine NEGATIVE Comment: L. pneumophila serogroup 1 antigen not detected. A negative result does not exclude infection with Leginella pnemophila serogroup 1 nor does it rule out other microbial-caused respiratory infections of disease caused by other serogroups of Legionella pneumophila. Strep Pneumoniae Antigen [[id number]] Collected: 09/28/24 162 Order Status: Completed Specimen: Urine, clean catch Updated: 09/28/24 175 Source .URINE Strep pneumo Ag NEGATIVE Comment: Strep pneumoniae antigen not detected Respiratory Panel, Molecular, with COVID-19 (Restricted: peds pts or suitable admitted adults) [[id number]] Collected: 09/28/24 162 Order Status: Completed Specimen: [...] multiplexed nucleic acid assay. Culture, Blood 1 [[id number]] (Abnormal) Collected: 09/28/24 0839 Order Status: Completed [...] to and read back by:YECENIA JOHNSON RN, [facility], 09/29/24 0745, LAWANDA HERMAN Culture, Blood 2 [[id number]] Collected: 09/28/24 0834 Order Status: Completed Specimen: [...] Noted NSTEMI (non-ST elevated myocardial infarction) ([facility]) 09/29/2024 DKA, type 2, not at goal ([facility]) 09/28/2024 Acute hypoxemic respiratory failure 09/28/2024 Central apnea 01/22/2024 Hypertensive encephalopathy 01/19/2024 Hypertensive emergency 01/19/2024 Fever 01/19/2024 Altered mental status 01/19/2024 Encephalopathy acute 01/19/2024 Hypertensive urgency 01/19/2024 Lactic acidosis 01/19/2024 Bacteremia due to Staphylococcus aureus Sinus tachycardia Mild malnutrition ([facility]) 10/28/2021 Diabetic acidosis without coma ([facility]) 10/27/2021 PLAN: WEAN PER PROTOCOL: [] No [x] Yes [] N/A ICU PROPHYLAXIS: Stress ulcer: [x] PPI Agent [] [id number] [] Sucralfate [] Other: VTE: [] Enoxaparin [...] i Vent Mode: AC/PRVC CV: BP at [facility] was 225/110 and started on cardene drip [...] the original note were not included. Ailyn Mine Foreman Progress Note Date: 09/30/2024 Patient name: Ortiz [...] ms QTc Calculation (Bazett) 456 ms P [place] 79 degrees R [place] 68 degrees T [place] 68 degrees Narrative Sinus tachycardia Possible Left atrial enlargement Nonspecific ST abnormality Abnormal ECG No previous ECGs available Echo: Results for orders placed or performed during the hospital encounter of 10/27/21 Echocardiogram complete 2D with doppler with color Result Value Ref Range Left Ventricular Ejection Fraction 60 LVEF MODALITY ECHO Narrative [facility] Transthoracic Echocardiography Report (TTE) Patient Name SHERIF Date of Study 10/30/2021 ORTIZ Quezada Date of 1975 Gender Male Age 45 year(s) Race Room Number I307 Height: 71 inch, 180.34 cm Corporate ID [id number] Weight: 174 pounds, 78.9 kg # Patient Acct [id number] BSA: 1.99 m^2 BMI: 24.27 # kg/m^2 MR # [id number] Wireless Development Manager GuideSparkRaysa Interpreting Physician Sammie Sher Fellow Referring Nurse Sarita Arzola CNP Practitioner Interpreting Referring Physician Fellow Type of Study TTE procedure:2D Echocardiogram, M-Mode, Doppler, Color Doppler. Procedure Date Date: 10/30/2021 Start: 02:34 PM Study Location: [facility] Indications:Tachycardia. History / Tech. Comments: Dx: [...] DKA, type 2, not at goal ([facility]) 09/28/2024 Yes NSTEMI (non-ST elevated myocardial infarction) ([facility]) 09/29/2024 Yes Acute hypoxemic respiratory failure 09/28/2024 Yes Assessment: Elevated Troponins- likely type II IL HTN emergency- off cardene drip now AMS-intubated [...] With changes made to the note. . [place] [employer] [phone] * Addy Brown DO - 09/29/2024 2:08 PM EST [facility] Neurology IN-PATIENT SERVICE NEUROLOGY PROGRESS NOTE [...] night. He was taken tot ED at [facility]. Found to have significant elevation in his [...] He was transferred to medical ICU at [facility]. Currently he is seen here at [facility]. Propofol drip is currently running. He [...] fluro performed by Vincent Kuhn DO at [facility] OR Medications during admission: insulin [...] primary team Will follow Addy Brown DO [facility] [place] [facility] * Sunshine Carmona RD - 09/29/2024 [...] to assess Fluid Accumulation: Mild Extremities, Generalized Spring Floor Service Worker Strength: Not Performed Nutrition Assessment: Pt currently ventilated. Life flighted from [facility] for DKA. Adm BG 820 mg/dL. Found [...] Measures: Height: 177.8 cm (5' 10 ) [place] Body Weight (IBW): 166 lbs (75 kg) Admission Body Weight: 81.2 kg (179 lb) Current Body Weight: 81.2 kg (179 lb), 107.8 % IBW. Weight Source: Bed scale Current BMI (kg/m2): 25.7 Weight Adjustment For: No Adjustment BMI Categories: Overweight (BMI 25.0-29.9) Estimated Daily Nutrient Needs: Energy Requirements Based On: Formula Weight Used for Energy Requirements: Current Energy (kcal/day): 1151-1573 kcal/d Weight Used for Protein Requirements: Current [...] hypertension who presents as a transfer from [facility]. He was brought to the ED department [...] of home dose lantus Received call from [employer] [facility] stating one of the blood cultures [...] Date 09/29/24 0000 - 09/29/24 2359 Shift 0827-3080 5520-2479 3506-7268 24 Hour Total INTAKE I.V.(mL/kg) 2670.3(32.8) 2670.3(32.8) [...] IntraVENous Daily Continuous Infusions: sodium chloride Stopped (09/28/244) propofol 25 mcg/kg/min (09/29/24713) sodium chloride Stopped [...] % ETCO2 (mmHg): 34 mmHg Humidification Source: [facility] ABGs: Arterial Blood Gas result: pH 7.41; pCO2 38; pO2 161; HCO3 25; Lab Results Component Value Date/Time PHART 7.385 09/28/2024 09:42 AM LBG4DSK 35.2 09/28/2024 09:42 AM PO2ART 72.2 09/28/2024 09:42 AM FAH2LER 20.6 09/28/2024 09:42 AM X1WURHPK 94.5 09/28/2024 09:42 AM FIO2 30.0 09/29/2024 [...] Procedure Component Value Units Date/Time Culture, Respiratory [[id number]] (Abnormal) Collected: 09/28/242053 Order Status: Completed Specimen: Respiratory specimen from Tracheal Aspirate Updated: 09/28/242229 Specimen Description .TRACHEAL ASPIRATE Special Requests Site: Respiratory specimen Direct Exam < 10 EPITHELIAL CELLS/LPF >10, <25 NEUTROPHILS/LPF FEW GRAM POSITIVE COCCI IN PAIRS Culture PENDING MRSA DNA Probe, Nasal [[id number]] Collected: 09/28/24 1638 Order Status: Sent Specimen: Nares Updated: 09/28/24 1638 LEGIONELLA ANTIGEN, URINE [[id number]] Collected: 09/28/24 1625 Order Status: Completed Specimen: Urine Updated: 09/28/24 175 Legionella Pneumophilia Ag, Urine NEGATIVE Comment: L. pneumophila serogroup 1 antigen not detected. A negative result does not exclude infection with Leginella pnemophila serogroup 1 nor does it rule out other microbial-caused respiratory infections of disease caused by other serogroups of Legionella pneumophila. Strep Pneumoniae Antigen [[id number]] Collected: 09/28/241623 Order Status: Completed Specimen: Urine, clean catch Updated: 09/28/24 1759 Source .URINE Strep pneumo Ag NEGATIVE Comment: Strep pneumoniae antigen not detected Respiratory Panel, Molecular, with COVID-19 (Restricted: peds pts or suitable admitted adults) [[id number]] Collected: 09/28/24 162 Order Status: Completed Specimen: [...] multiplexed nucleic acid assay. Culture, Blood 1 [[id number]] Collected: 09/28/2439 Order Status: Sent Specimen: Blood Updated: 09/28/24 0855 Culture, Blood 2 [[id number]] Collected: 09/28/2434 Order Status: Sent Specimen: Blood [...] (HCC) 10/28/2021 Diabetic acidosis without coma ([facility]) 10/27/2021 PLAN: WEAN PER PROTOCOL: [] No [x] Yes [] N/A ICU PROPHYLAXIS: Stress ulcer: [x] PPI Agent [] A3Uqcar [] Sucralfate [] Other: VTE: [] Enoxaparin [...] i Vent Mode: AC/PRVC CV: BP at [facility] was 225/110 and started on cardene drip [...] per DKA orderset. Pt life flighted from [facility] to [facility] ER admitted to 3002: Diabetic ketoacidosis [...] more appropriate time. Regi Mitchell RD, ESE, [facility] documented in this encounterBon [facility] Hospital course Narrative* Rhoda Luna MD - 10/06/2024 8:27 AM EST Images from the original note were not included. [facility] Office: [phone] Andrew Hernandez DO, Ernie Escalante DO, Hal [...] Sarita Mcmullen,PARKER, Linda Lynch CNP, Ludmila Aguilera, SUPERVISOR BODY ASSEMBLY, Lina Morgan, JENNA, Nini Raya, SUPERVISOR BODY ASSEMBLY, Giuliana Mae, SUPERVISOR BODY ASSEMBLY, Myra Almodovar, SUPERVISOR BODY ASSEMBLY, Suzy Dooley, SUPERVISOR BODY ASSEMBLY, Gaviota Rich, PA-C, Carley So PA-C, Shelly Rainey,SUPERVISOR BODY ASSEMBLY, Manny Laura, SUPERVISOR BODY ASSEMBLY, Yenny Motta, SUPERVISOR BODY ASSEMBLY, Claudine Parrish, SUPERVISOR BODY ASSEMBLY, Maame Carter, SUPERVISOR BODY ASSEMBLY, Edilma Garza, SUPERVISOR BODY ASSEMBLY [facility] IN-PATIENT SERVICE [facility] Discharge Summary Patient ID: Ortiz Gorman : 1975 ACCOUNT: [id number] Patient's PCP: Vincent Winters MD Admit Date: 09/28/2024 Discharge Date: 10/06/2024 Length of Stay: 8 Code Status: Full Code Admitting Physician: No admitting provider for patient encounter. Discharge Physician: Rhoda Luna MD Active Discharge Diagnoses: Hospital Problem Lists: Principal Problem: DKA, type 2, not at goal (HCC) Active Problems: NSTEMI (non-ST elevated myocardial infarction) ([facility]) Acute metabolic encephalopathy Acute hypoxemic respiratory failure Abnormal finding on MRI of brain Abnormal electrocardiography ABHIJIT (acute kidney injury) ([facility]) Stage 3 chronic kidney disease ([facility]) Hypertension Seizures ([facility]) Cerebrovascular accident (CVA) ([facility]) Resolved Problems: * No resolved hospital problems. [...] Consults: Final Specialist Recommendations/Findings: IP CONSULT TO REROLLING MACHINE OPERATOR IP CONSULT TO NEUROLOGY IP CONSULT TO CARDIOLOGY IP CONSULT TO NEPHROLOGY IP CONSULT TO HOME CARE NEEDS The patient was seen and examined on day of discharge A&O X 3 CTAB NSR, NO MRG Soft abdomen , +BS No swelling and pulse palpable Discharge plan: Disposition: Home with home care Physician Follow Up: Jayden Orosco MD [address] [facility] [facility] [address] [facility], [address] [facility] [id number] Schedule an appointment as soon as possible for a visit in 6 week(s) Ramy Sanchez MD [address] [facility] [address] Follow up in 1 month(s) Vincent Winters MD [address] [facility] [address] Follow up Requiring Further Evaluation/Follow Up [...] Your Medications These medications were sent to [place] [address] [facility] [phone] - F [phone] [facility] [address] amLODIPine 10 MG tablet aspirin 81 MG chewable tablet atorvastatin 40 MG tablet carvedilol 25 MG tablet insulin lispro 100 UNIT/ML Soln injection vial Insulin Pen Needle 32G X 6 MM Misc Insulin Syringe-Needle U-100 30G X 5/16 0.5 ML Misc Lantus SoloStar 100 UNIT/ML injection pen levETIRAcetam 500 MG tablet losartan 50 MG tablet [facility] [place] [facility] [place] [address] [facility] [phone] - F [phone] [address] [facility] [phone] Blood Pressure Kit Discharge Procedure Orders MRI Brain W WO Contrast Standing Status: Future Standing Exp. Date: 10/02/25 Order Specific Question Answer Comments STAT Creatinine as needed: Yes Reason for exam: follow up to right cerebral hyperintensities Basic Metabolic Panel Standing Status: Future Standing Exp. Date: 10/06/25 Order Comments: Please fax to Dr. Laura at [phone] Time Spent on discharge is 40 mins in patient examination, evaluation, counseling as well as medication reconciliation, prescriptions for required medications, discharge plan and follow up. Electronically signed by Rhoda Luna MD 10/06/2024 12:44 PM Thank you Vincent Roman MD for the opportunity to be involved in this patient's care. documented in this encounterBon [facility] Hospital Discharge instructions* Discharge Instructions* Joseline Teague [...] patient's room Diabetes Education phone number is [phone]. You worked with Joseline Teague RN * [...] fluro performed by Vincent Kuhn DO at [facility] OR Immunization History: Immunization History Administered Date(s) Administered COVID-19, J&J, (age 18y+), IM, 0.5 mL 02/24/2021 Active Problems: Patient Active Problem List Diagnosis Code Diabetic acidosis without coma ([facility]) E11.10 Mild malnutrition ([facility]) E44.1 Bacteremia due to Staphylococcus aureus R78.81, B95.61 Sinus tachycardia R00.0 Acute metabolic encephalopathy G93.41 Hypertensive emergency I16.1 Fever R50.9 Altered mental status R41.82 Encephalopathy acute G93.40 Hypertensive urgency I16.0 Lactic acidosis E87.20 Central apnea R06.81 DKA, type 2, not at goal ([facility]) E11.10 Acute hypoxemic respiratory failure J96.01 NSTEMI (non-ST elevated myocardial infarction) ([facility]) I21.4 Abnormal finding on MRI of brain [...] Independent Dressing Independent Toileting Independent Feeding Independent Hurl Shaker Independent Med Delivery whole Wound Care Documentation [...] Status Date: 09/28/24 Readmission Risk Assessment Score: [facility] RISK OF UNPLANNED READMISSION 2.0 16.9 Total Score Discharging to Facility/ Agency Name: [facility] Address: Fax: Dialysis Facility (if applicable) Name: Address: Dialysis Schedule: Phone: Fax: Barrel Handler/Configuration Consultant signature: at11:44 AM EST PHYSICIAN SECTION Prognosis: [...] Insulin Pen: How to Use: General Info (Surinamese) * Diabetes: Type 2: General Info (Surinamese) * Diabetes Diet Meal Planning: General Info (Surinamese) * Seizure (Surinamese) * Levetiracetam Extended Release Oral Tablet (LEVETIRACETAM - ORAL) (Surinamese) documented in this encounterBon [facility]04[facility] Hospital Discharge instructions* Discharge Instructions* Maulik Guardado [...] Carb Counting and Eating Well: General Info (Surinamese) documented in [facility] History of Present illness Narrative* Saturnino Angel MD - 01/22/2024 12:43 PM EDT Images from the original note were not included. [facility] Progress Note Ortiz Gorman Date: 01/22/2024 LOS: 3 Reason for F/U : Possible meningitis Impression : Altered mental status concern for toxic metabolic encephalopathy versus primary DIRECTOR DECISION SUPPORT process Status post lumbar puncture 01/19/2024 at IR and CSF findings not consistent with primary DIRECTOR DECISION SUPPORT infection Respiratory failure-intubated for airway protection Extubated [...] on Rocephin, vancomycin, and acyclovir empirically for DIRECTOR DECISION SUPPORT infection Antibiotics were narrowed down to Rocephin [...] to call us back Infection Control Recommendations: Duncan precautions Discharge Planning: Patient will need Midline [...] pressure was 240 prompting transfer here to [facility] The patient continued to get increasingly confused, [...] 0 Tube Number, CSF 3 Resulting Agency [facility] Specimen Collected: 01/19/24 15:56 EDT Last [...] Component Value Units Date/Time Culture, Blood 1 [[id number]] Collected: 01/19/24 0814 Order Status: Completed Specimen: Blood Updated: 01/22/2418 Specimen Description .BLOOD Special Requests R HAND 5 ML Culture NO GROWTH 3 DAYS Culture, Blood 1 [[id number]] Collected: 01/19/24 0810 Order Status: Completed Specimen: Blood Updated: 01/22/2414 Specimen Description .BLOOD Special Requests L HAND 5 ML Culture NO GROWTH 3 DAYS Culture, CSF [[id number]] Collected: 01/19/24 1553 Order Status: Completed Specimen: CSF Updated: 01/22/24 0721 Specimen Description .CSF Direct Exam RARE NEUTROPHILS NO ORGANISMS SEEN Gram stain made from cytocentrifuged specimen. Organisms and cells will be concentrated. Culture NO GROWTH 3 DAYS Lyme Disease AB, CSF [[id number]] Collected: 01/19/24 1556 Order Status: Completed Specimen: [...] developed and its performance characteristics determined by [facility]. It has not been cleared or approved by the US Food and Drug Administration. This test was performed in a CLIA certified laboratory and is intended for clinical purposes. Performed By: [facility] [address] [place] [address] Senior Caregiver: Rogelio Miranda MD, PhD CLIA Number: [id number] VDRL CSF [[id number]] Collected: 01/19/241555 Order Status: Completed Specimen: CSF Updated: 01/20/24 1119 VDRL, CSF Screen NONREACTIVE Culture, Urine [[id number]] Collected: 01/19/24 0911 Order Status: Completed Specimen: Urine, straight catheter Updated: 01/20/24 0853 Specimen Description .URINE,STRAIGHT CATHETER Culture NO GROWTH Meningitis Encephalitis Panel CSF, Molecular [[id number]] Collected: 01/19/24 155 Order Status: Completed Specimen: [...] nucleic acid assay. West Nile Virus, CSF [[id number]] Collected: 01/19/24 1556 Order Status: Sent Specimen: CSF Updated: 01/19/24 1557 Herpes simplex virus PCR [[id number]] Collected: 01/19/24 1548 Order Status: Sent Specimen: CSF Updated: 01/19/24 1548 Gram stain CSF [[id number]] Collected: 01/19/24 1546 Order Status: Canceled Specimen: Spinal Fluid Culture, Respiratory [[id number]] Order Status: No result Specimen: Endotracheal Respiratory Panel, Molecular, with COVID-19 (Restricted: peds pts or suitable admitted adults) [[id number]] Collected: 01/19/24 0909 Order Status: Completed Specimen: [...] nucleic acid assay. MRSA DNA Probe, Nasal [[id number]] Collected: 01/19/24 0437 Order Status: Completed Specimen: [...] [facility] Saturnino Angel MD [facility] OFFICE: Thank you for allowing us to [...] extrapolated by contextual diversion. * Marce Restrepo, AIRCRAFT STRUCTURAL REPAIR MECHANIC - SUPERVISOR BODY ASSEMBLY - 01/22/2024 8:07 AM EDT Images from [...] who was admitted as a transfer from [facility] on 01/19/2024 with persistent headache. While at [facility] patient reportedly worsened in regards to his mentation and became more confused and agitated prompting transfer to [facility] for further evaluation andcare. He was significantly hypertensive and was admitted to the medical ICU and placed on a Cardenedrip. The morning of 01/18 he continued to worsen and ultimately required intubation. Also developed a fever requiring an infectious workup; he underwent LP on 01/18 with findings not consistent with a primary DIRECTOR DECISION SUPPORT infection nor suggestive of SAH. No current [...] fluro performed by Vincent Kuhn DO at [facility] OR Social History: Ortiz Gorman reports [...] a similar admission 3 months ago at [facility] with acute respiratory failure in the setting [...] to ensure the accuracy of this automated mud plant operator, some errors in mud plant operator may have occurred. Associated attestation - Addy [...] Notable clonal bands are pending. Will add [facility] encephalitis panel. Discussed with patient at [...] from the original note were not included. [facility] Teaching Residency Program Inpatient Daily Progress Note Patient: Ortiz Gorman Date of : 1975 Acct: [id number] Room: [address] [place] [address] Admit date: 01/19/2024 Today's date: 01/22/24 Number [...] the past 1 to 2 days at [facility]. He wasalso noted to have left-sided facial droop, left-sided deficits and there was a concern for possible dysarthria, telestroke team was consulted. Imaging was negative for any kind of acute changes likeCT and CTA head and neck. His blood pressure was in the 240s, patient was started on Cardene drip with improvement. And later was transferred to the [facility] ICU. On arrival to the ICU his bloodsugars were in 500s, and was started on insulin drip. Patient was later intubated, due to concerns for central apnea for airway protection. For the concerns of DIRECTOR DECISION SUPPORT infection patient was started on Chaim ephin, vancomycin and acyclovir empirically. These antibiotics were narrowed down to Rocephin on 01/20/2024. Underwent MRI and LP for the concerns of DIRECTOR DECISION SUPPORT infections which were negative. His neurological status significantly improved after his blood pressure, blood sugars were controlled. On neurology evaluation, there was concern of acute encephalopathy of unclear origin, CSF studies had been ruling out any kind of DIRECTOR DECISION SUPPORT infection, and head imaging had been ruling [...] Jamal Patel MD Internal Medicine Resident, PGY-1 [place], [place] 01/22/2024,7:13 AM Associated attestation - Trino [...] Attending Physician Internal Medicine Residency Program, Nephrology [facility] 01/22/2024, 1:22 PM * Jamal Patel MD - 01/21/2024 10:21 PM EDT Images from the original note were not included. [facility] Department of Internal Medicine - Staff Internal Medicine Service ICU PATIENT TRANSFER NOTE Patient: Ortiz Gorman Date of : 1975 Acct: [id number] Admit date: 01/19/2024 Code Status:- Full code [...] to 2days. He initially presented at the [facility]. He was also noted to have left-sided facial droop, left-sided deficits and there was a concern for possible dysarthria, telestroke team was consulted. Imaging was negative for any kind of acute changes like CT and CTA head and neck. His blood pressure was in the 240s, patient was started on Cardene drip with improvement. And later was transferred to the [facility] ICU. On arrival to the ICU his blood sugars were in 500s, and was started oninsulin drip. Patient was later intubated, due to central apnea for airway protection. For the concerns of DIRECTOR DECISION SUPPORT infection patient was started on Rocephin, vancomycin and acyclovir empirically. These antibiotics were narrowed down to Rocephin on 01/20/2024. Underwent MRI and LP for the concerns of DIRECTOR DECISION SUPPORT infections which were negative. His neurological status significantly improved after his blood pressure, blood sugars were controlled. On neurology evaluation, there was concern of acute encephalopathy of unclear origin, CSF studies had been ruling out any kind of DIRECTOR DECISION SUPPORT infection, and head imaging hadbeen ruling out [...] Jamal Patel MD Department of Internal Medicine [facility] [place] 01/21/2024, 10:22 PM * Aidee Rodriguez MD - 01/21/2024 6:20 PM EDT Critical care team - Resident sign-out to medicine service Date and time: 01/21/2024 6:21 PM Patient's name: Ortiz Gorman Patient's account/billing number: [id number] Patient's Date of : 1975 Age: 48 [...] and untreated hypertension Patient originally presented to [facility] with complaints of high sugars and a [...] of his pressures. Patient was transferred to [facility] ICU for further care and neuro evaluation. [...] New fever while in department. Concern for DIRECTOR DECISION SUPPORT infection. MRI and LP pending. 01/19: MRI [...] Aidee Rodriguez MD PGY-2, Internal Medicine Resident [facility] [place] 01/21/2024, 7:22 PM * Sarthak Sepulveda RN [...] original note were not included. [facility] IN-PATIENT SERVICE NEUROLOGY PROGRESS NOTE [...] the chart was reviewed. Initially presented to [facility] on 01/17 evening due to persistent headache. Reportedly at [facility] patient worsened as far as his mentation becoming more confused, agitated requiring transfer to [facility]. He was significantly hyp ertensive prompting medical [...] fluro performed by Vincent Kuhn DO at [facility] OR Medications during admission: insulin [...] touch, pin, vibration, proprioception throughout Cerebellar Intact ixbtne-bpwr-qkdubx testing. Intact heel-langley testing. No dysdiadochokinesia present. [...] emergency Similar admission 3 months ago at [facility] with acute respiratory failure in the setting of agitation and hypertensive crisis Plan: Patient essentially back to baseline neurologically. Did have discussion with him regarding the events leading up to hospitalization in which he just remembers feeling off . He states he felt like he did back in end of August when he had his first hospitalization at [facility] with elevated blood sugars and blood pressures. [...] unit at this time Addy Brown DO [facility] Neurology * Saturnino Angel MD - 01/21/2024 1:54 PM EDT Images from the original note were not included. [facility] Progress Note Ortiz Gorman Date: 01/21/2024 LOS: 2 Reason for F/U : Possible meningitis Impression : Altered mental status concern for toxic metabolic encephalopathy versus primary DIRECTOR DECISION SUPPORT process Status post lumbar puncture 01/19/2024 at IR and CSF findings not consistent with primary DIRECTOR DECISION SUPPORT infection Respiratory failure-intubated for airway protection Extubated [...] on Rocephin, vancomycin, and acyclovir empirically for DIRECTOR DECISION SUPPORT infection Antibiotics were narrowed down to Rocephin [...] the Rocephin as well Infection Control Recommendations: Duncan precautions Discharge Planning: Estimated Length of IV [...] pressure was 240 prompting transfer here to [facility] The patient continued to get increasingly confused, [...] 10/27/2021 11:36 AM No results for input(s): [facility] in the last 72 hours. Component Ref Range & Units 01/19/24 1556 Volume, CSF mL 12 Appearance, CSF Clear Xanthochromia ABSENT WBC, CSF <5 cells/uL 0 RBC, CSF 0 cells/uL 0 Tube Number, CSF 3 Resulting Agency [facility] Specimen Collected: 01/19/24 15:56 EDT Last Resulted: [...] Procedure Component Value Units Date/Time Culture, CSF [[id number]] Collected: 01/19/24 1553 Order Status: Completed Specimen: CSF Updated: 01/20/24 0730 Specimen Description .CSF Direct Exam RARE NEUTROPHILS NO ORGANISMS SEEN Gram stain made from cytocentrifuged specimen. Organisms and cells will be concentrated. Culture NO GROWTH 15 HOURS Culture, Blood 1 [[id number]] Collected: 01/19/24 0814 Order Status: Completed Specimen: Blood Updated: 01/19/242117 Specimen Description .BLOOD Special Requests R HAND 5 ML Culture NO GROWTH 12 HOURS Culture, Blood 1 [[id number]] Collected: 01/19/24 0810 Order Status: Completed Specimen: Blood Updated: 01/19/242113 Specimen Description .BLOOD Special Requests L HAND 5 ML Culture NO GROWTH 12 HOURS Meningitis Encephalitis Panel CSF, Molecular [[id number]] Collected: 01/19/24 1556 Order Status: Completed Specimen: [...] by multiplexed nucleic acid assay. VDRL CSF [[id number]] Collected: 01/19/24 155 Order Status: Sent Specimen: CSF Updated: 01/19/241556 Lyme Disease AB, CSF [[id number]] Collected: 01/19/241555 Order Status: Sent Specimen: CSF Updated: 01/19/241556 West Nile Virus, CSF [[id number]] Collected: 01/19/24 155 Order Status: Sent Specimen: CSF Updated: 01/19/241556 Herpes simplex virus PCR [[id number]] Collected: 01/19/24 1548 Order Status: Sent Specimen: CSF Updated: 01/19/24 1548 Gram stain CSF [[id number]] Collected: 01/19/24 1546 Order Status: Canceled Specimen: Spinal Fluid Culture, Respiratory [[id number]] Order Status: No result Specimen: Endotracheal Respiratory Panel, Molecular, with COVID-19 (Restricted: peds pts or suitable admitted adults) [[id number]] Collected: 01/19/24 0909 Order Status: Completed Specimen: [...] by multiplexed nucleic acid assay. Culture, Urine [[id number]] Collected: 01/19/24 0911 Order Status: Sent Specimen: Urine, straight catheter Updated: 01/19/24 09 MRSA DNA Probe, Nasal [[id number]] Collected: 01/19/24 0437 Order Status: Completed Specimen: [...] [facility] Saturnino Angel MD [employer] OFFICE: Thank you for allowing us [...] and untreated hypertension Patient originally presented to [facility] with complaints of high sugars and a [...] of his pressures. Patient was transferred to [facility] ICU for further care and neuro evaluation. [...] New fever while in department. Concern for DIRECTOR DECISION SUPPORT infection. MRI and LP pending. 01/19: MRI [...] Date 01/21/24 0000 - 01/21/24 2359 Shift [id number] 9096-8238 5319-2597 24 Hour Total INTAKE I.V.(mL/kg) 955.3(10.4) 955.3(10.4) [...] PROPHYLAXIS: Stress ulcer: [x] PPI Agent [] T6Uajor [] Sucralfate [] Other: VTE: [] Enoxaparin [...] this chart was generated using voice recognition [employer] nvon dictation software. Although every effort was made to ensure the accuracy of this automated mud plant operator, some errors in mud plant operator may have occurred. Sarmad Daly MD 01/21/2024 11:57 AM * Addy Brown, - 01/20/2024 12:29 PM EDT Images from the original note were not included. [facility] Neurology IN-PATIENT SERVICE NEUROLOGY PROGRESS NOTE [...] the chart was reviewed. Initially presented to [facility] on 01/17 evening due to persistent headache. Reportedly at [facility] patient worsened as far as his mentation becoming more confused, agitated requiring transfer to [facility]. He was significantly hyp ertensive prompting medical [...] fluro performed by Vincent Kuhn DO at [facility] OR Medications during admission: cefTRIAXone [...] emergency Similar admission 3 months ago at [facility] with acute respiratory failure in the setting [...] abnormalities. Upon chart review he was at [facility] back in September with similar type of presentation acute delirium, agitation requiring intubation and acute respiratory failure. Eventually was extubated and left AMA. At that time MRI brain was reported as normal. Critical care recommendations Continued blood pressure management Will follow Addy Brown DO [facility] [place] [facility] * Saturnino Angel MD - 01/20/2024 8:41 AM EDT Images from the original note were not included. [facility] Progress Note Ortiz Gorman Date: 01/20/2024 LOS: 1 Reason for F/U : Possible meningitis Impression : Altered mental status concern for toxic metabolic encephalopathy versus primary DIRECTOR DECISION SUPPORT process Respiratory failure-intubated for airway protection Diabetes mellitus type 2 poorly controlled-currently on insulin Hypertensive emergency responded well to Cardene drip and has been able to wean off of it Concern for stroke given left-sided facial droop, dysarthria Chronic kidney disease stage III History of substance abuse Recommendations: The CSF findings are not consistent with a primary DIRECTOR DECISION SUPPORT infection and therefore the antimicrobial therapy will be narrowed to Rocephin alone The blood culture data thus far remains negative The patient's mentation is markedly improved he is awake and alert following commands and no focal deficits appreciated I will continue to follow his progress and adjust therapy accordingly Infection Control Recommendations: Duncan precautions Discharge Planning: Estimated Length of IV [...] pressure was 240 prompting transfer here to [facility] The patient continued to get increasingly confused, [...] 0 Tube Number, CSF 3 Resulting Agency [facility] Specimen Collected: 01/19/24 15:56 EDT Last Resulted: [...] Procedure Component Value Units Date/Time Culture, CSF [[id number]] Collected: 01/19/24 1553 Order Status: Completed Specimen: CSF Updated: 01/20/24 0730 Specimen Description .CSF Direct Exam RARE NEUTROPHILS NO ORGANISMS SEEN Gram stain made from cytocentrifuged specimen. Organisms and cells will be concentrated. Culture NO GROWTH 15 HOURS Culture, Blood 1 [[id number]] Collected: 01/19/24 0814 Order Status: Completed Specimen: Blood Updated: 01/19/242117 Specimen Description .BLOOD Special Requests R HAND 5 ML Culture NO GROWTH 12 HOURS Culture, Blood 1 [[id number]] Collected: 01/19/24 0810 Order Status: Completed Specimen: Blood Updated: 01/19/242113 Specimen Description .BLOOD Special Requests L HAND 5 ML Culture NO GROWTH 12 HOURS Meningitis Encephalitis Panel CSF, Molecular [[id number]] Collected: 01/19/24 1556 Order Status: Completed Specimen: [...] by multiplexed nucleic acid assay. VDRL CSF [[id number]] Collected: 01/19/24 155 Order Status: Sent Specimen: CSF Updated: 01/19/24 155 Lyme Disease AB, CSF [[id number]] Collected: 01/19/24 1556 Order Status: Sent Specimen: CSF Updated: 01/19/24 155 West Nile Virus, CSF [[id number]] Collected: 01/19/24 155 Order Status: Sent Specimen: CSF Updated: 01/19/24 155 Herpes simplex virus PCR [[id number]] Collected: 01/19/24 1548 Order Status: Sent Specimen: CSF Updated: 01/19/24 1548 Gram stain CSF [[id number]] Collected: 01/19/24 1546 Order Status: Canceled Specimen: Spinal Fluid Culture, Respiratory [[id number]] Order Status: No result Specimen: Endotracheal Respiratory Panel, Molecular, with COVID-19 (Restricted: peds pts or suitable admitted adults) [[id number]] Collected: 01/19/24908 Order Status: Completed Specimen: Nasopharyngeal [...] by multiplexed nucleic acid assay. Culture, Urine [[id number]] Collected: 01/19/24910 Order Status: Sent Specimen: Urine, straight catheter Updated: 01/19/24910 MRSA DNA Probe, Nasal [[id number]] Collected: 01/19/24 0437 Order Status: Completed Specimen: [...] [facility] Saturnino Angel MD [employer] messaging OFFICE: Thank you for allowing us [...] and untreated hypertension Patient originally presented to [facility] with complaints of high sugars and a [...] of his pressures. Patient was transferred to [facility] ICU for further care and neuro evaluation. [...] New fever while in department. Concern for DIRECTOR DECISION SUPPORT infection. MRI and LP pending. SUBJECTIVE: OVERNIGHT [...] ml Date 01/20/24 0000 - 01/20/242358 Shift [id number] 1419-7221 3587-7319 24 Hour Total INTAKE I.V.(mL/kg) 1365.5(15.2) 1365.5(15.2) [...] PROPHYLAXIS: Stress ulcer: [x] PPI Agent [] [id number] [] Sucralfate [] Other: VTE: [] Enoxaparin [...] < 180 Pulmonary: Intubated for airway protection [facility] 16 / 5 / 30% Wean Renal/Fluid/Electrolyte: [...] this chart was generated using voice recognition Xolve dictation software. Although every effort was made to ensure the accuracy of this automated mud plant operator, some errors in mud plant operator may have occurred. Sarmad Daly MD 01/20/2024 [...] assess Fluid Accumulation: No significant fluid accumulation Spring Floor Service Worker Strength: Not Performed Nutrition Assessment: Pt admitted [...] Measures: Height: 177.8 cm (5' 10 ) [place] Body Weight (IBW): 166 lbs (75 kg) Admission Body Weight: 88.5 kg (195 lb 1.7 oz) Current Body Weight: 88.5 kg (195 lb 1.7 oz), 117.5 % IBW. Weight Source: Bed Scale Current BMI (kg/m2): 28 Weight Adjustment For: No Adjustment BMI Categories: Overweight (BMI 25.0-29.9) Estimated Daily Nutrient Needs: Energy Requirements Based On: Kcal/kg Weight Used for Energy Requirements: Admission Energy (kcal/day): 3603-6125 kcals/day Weight Used for Protein Requirements: Admission [...] to determine Alba Denson RD, LD Contact: [phone] * Toan Reece RN - 01/19/2024 3:22 PM EDT Patient to IR for lumbar puncture, assisted to table in prone position. JR PA and CM RT at bedside. Site prepped and draped, area numbed with lidocaine. 12ml of clear fluid drained. Specimen collected. Band aid placed to site. Patient tolerated well and is transported back to room with PARAOPTOMETRIC and respiratory therapist. * Xochitl Hampton MD [...] with daughter, Yamileth Gorman, who is a biomedical engineering professor, at and updated on patient's condition, including [...] Nielson RP - 01/19/2024 11:34 AM EDT [facility] Pharmacokinetic Monitoring Service - Vancomycin Ortiz [...] agitation CT Head, CTA head/neck negative at [facility], no TNK given per telestroke Neurology consulted, recommend MRI once more stable EtOH negative UDS negative CIWA protocol, ativan held due to depressed mentation currently Thiamine, folate Given extensive periods of apnea and inability to obtain MRI or LP in current condition, will intubate patient this morning Lumbar puncture today MRI today Sitter at bedside Cardiology HTN emergency, SBP 250 at [facility] Cardene gtt now weaned off SBP [...] 13.2 Newly febrile to 101.1, afebrile at [facility] Meningitis prophylaxis initiated with acyclovir, rocephin, and vanco ID consulted Blood Cx NG < 24 h UA + moderate ketones, negative nitrite and LE, urine Cx pending RPP negative CRP 3.7 ESR 28 Endo DKA Glucose [phone] BHB 3.37 Insulin gtt, 1/2 NS gtt DKA protocol BMP q 4h HBA1c 12 Heme H/H 12.9 / 37 Plt 68 at [facility], 91 here DVT: Heparin SC, held this AM for lumbar puncture GI: Protonix WEAN PER PROTOCOL: [] No [x] Yes [] N/A ICU PROPHYLAXIS: Stress ulcer: [x] PPI Agent [] V6Oidcm [] Sucralfate [] Other: VTE: [] Enoxaparin [...] change the decision. To exclude meningitis and TX ES or other etiology as patient is [...] this chart was generated using voice recognition CMOSIS nvon dictation software. Although every effort was made to ensure the accuracy of this automated mud plant operator, some errors in mud plant operator may have occurred. Sarmad Daly MD 01/19/2024 10:52 AM [facility] Nurse Note* Nursing Notes - Eveline Elias LPN - 09/24/2023 7:27 PM EST Patient leaving AMA at this time. This nurse educated patient and patient son about the risks of leaving AMA. Dr. Juarez notified on patient's decision. [facility]12-09-2023 Miscellaneous Notes* Nursing Notes - Eveline [...] EST Head to toe reassessment completed by newswriter and is unchanged from previous head to toe assessment,please refer to flow sheets. * Plan of Care - Natty Desai - 09/23/2023 9:39 AM EST Problem: Dysphagia (Adult) Goal: Functional/Safe Swallow Description: Diet Recommendations and Strategies Regular Thin Liquids Meds whole with thin liquid Plan of Care: Frequency: 1x follow up Duration: 1 week Goals: College Coach: Ortiz Gorman will be able to consume [...] regarding dysphagia diagnosis, diet, and treatment recommendations. DICE MANAGER will assist in establishing adequate oral hygiene [...] is 2022, still states he is at [facility], when reoriented that he is in [place] he states shoot I knew that . [...] at this time. Stated he is at [facility], the year is 2002, and Roger [...] 09/21/2023 9:00 PM EST On admission to [facility] ICU, from ED a dual RN initial [...] bagged with 100% FiO2. documented in this [facility]12-09-2023 Nurse Note* Nursing Notes - Eveline Elias LPN - 09/24/2023 4:00 PM EST Assessment unchanged from previous. Call light within reach. [facility]12-09-2023 Nurse Note* Nursing Notes - Eveline Elias LPN - 09/24/2023 12:00 PM EST Assessment completed at this time. Refer to flowsheets if any changes were made. Call light within reach. Pt denies having any needs. [facility]12-09-2023 Hospital course Narrative* Cecil Ivan, FAYE-SUPERVISOR BODY ASSEMBLY - 09/24/2023 10:17 AM EST Discharge Summary [...] Now resolved UDS: Positive for MDMA - legal services manager consulted: Patient denied using MDMA, states he [...] as tolerated Discharge Follow-up: Vincent Winters MD [facility] [address] Call Post-Hospital Follow Up Discharge Disposition: Patient will be discharged in stable condition. Discharge Time: Including assessment, planning, and medication reconciliation was 8 minutes of SUPERVISOR BODY ASSEMBLY time. Cecil Ivan CNP completing Discharge Summary for Dr. Bird Please note Portions of this note utilized Xolve dictation software, please excuse any typographical or [...] Please note: Portions of this note utilized Xolve dictation software, please excuse any typographical or grammatical errors. Which inadvertently, might change the meaning and understanding. [facility] Nurse Note* Nursing Notes - Toan Calvin RN - 09/24/2023 4:35 AM EST No change in assessment from previous [facility]12-08-2023 History of Present illness Narrative* TAN Moctezuma - 09/23/2023 4:35 PM EST 09/23/23 1300 Referral Information Arrived From home or self-care Information Source Information Source patient ;review of medical record Information Source Name Ortiz Gorman Contact Information Barrel Handler/SW Added to Care Team Yes This Cement Contractor is Primary Barrel Handler/SW Yes Social Work Contact Name Rachael Fox Configuration Consultant's Living Environment Lives With alone Living Arrangements house Primary Care Provided By self Support System Immediate family Able to Return to Prior Arrangements yes Functional Status Patient's Functional Status Prior To This Admission? Independent Employment/Financial Employed? Yes Employment Details [employer] Employment/Financial Concerns no Financial Concerns none Insurance Medical Insurance Verified Yes Initial Discharge Planning Home Care Services (HIV NURSE) No DME (HIV NURSE) Straight cane;Wheelchair;Walker Patient Goal for Discharge Return [...] Left UE Assessment Details Grossly 5/5 Hand Spring Floor Service Worker Strength Hand Spring Floor Service Worker Strength Interpretation Left above expected range (strong);Right above expected range (strong) Sit to Stand Transfer [place] Level: Sit->Stand supervision Assistive Device: Sit->Stand gait belt Stand to Sit Transfer [place] Level: Stand->Sit supervision Assistive Device: Stand->Sit gait belt Sitting Balance Static Sitting-Level of Assistance Independent Dynamic Sitting-Level of Assistance Independent Standing Balance Static Standing-Level of Assistance Supervision Dynamic Standing-Level of Assistance Supervision LE Dressing LE Dressing Assistance Independent LE Dressing Location edge of bed LE Dressing Intervention/Details Pt pulled up each leg to bed to doff/don bilateral supervisor lace tearing socks withno hands-on assist required. Patient Education/Instruction [...] railing 4 - No Assistance PRIOR LEVEL [facility] Mobility Raw Score 24 PRIOR LEVEL [...] UE lean onto bed rail) Rolling/Turning Mobility [place] Level: Rolling/Turning independent Scooting Bridging Mobility [place] Level: Scooting/Bridging independent Supine to Sit Mobility [place] Level: Supine->Sit independent Skilled Intervention/Details: Supine->Sit Patient did require to sit EOB for short period prior to transition to stand. BP taken and no decrease from baseline. Sit to Stand Transfer [place] Level: Sit->Stand minimum assist (75% patient effort) Skilled Intervention/Details: Sit->Stand Assist needed d/t inability to maintain in one plane ofmovement, compensated for balance and/or functional weakness with a deviation to straight sit to stand. Bed-Chair Transfer [place] Level: Bed<->Chair (pt declined up to chair) Gait Assessment [place] Level: Gait moderate assist (50% patient effort) [...] the bed, patient w/ scissored gait) CURRENT [facility] Basic Mobility Inpatient Short Form Turning [...] a railing 1 - Total Assistance CURRENT [facility] Mobility Raw Score 17 CURRENT [facility] Mobility Functional Limitation/Modifier 50.57% Currently Impaired [...] falls. States he had multiple hospitalizations in [facility] previously for infection. Evaluation as noted, [...] home/community. Brittney Ma PT * Cecil Ivan APRN-SUPERVISOR BODY ASSEMBLY - 09/23/2023 11:25 AM EST DAILY PROGRESS NOTE Admit Date: 09/21/2023 Date of Evaluation: 1:25 AM [facility] LOS: 2 days SUBJECTIVE: Patient seen and [...] mg 40 mg Subcutaneous Daily Cecil Ivan APRN-SUPERVISOR BODY ASSEMBLY 40 mg at 09/23/23 0847 hydrALAZINE (APRESOLINE) injection 20 mg 20 mg Intravenous Q4H PRN Cecil Ivan APRN-PARKER Ipratropium-albuterol (DUONEB) 0.5-2.5 (3) MG/3ML nebulizer solution 3 mL 3 mL Nebulization Q4H PRNSkatlyn Ivan APRN-PARKER Labetalol (NORMODYNE) injection 20 mg 20 mg Intravenous Q6H PRN Cecil Ivan AIRCRAFT STRUCTURAL REPAIR MECHANIC-PARKER Lisinopril (PRINIVIL) tablet 10 mg 10 mg Oral Q12H Cecil vIan APRN-PARKER Ondansetron 4mg/2ml (ZOFRAN) injection 4 mg [...] GI/DVT Prophylaxis: Protonix/Lovenox 6 minutes spent of SUPERVISOR BODY ASSEMBLY time including assessment, planning, and discussion with [...] Please note: Portions of this note utilized Xolve dictation software, please excuse any typographical or grammatical errors. Which inadvertently, might change the meaning and understanding. * Aracely Richard, AIRCRAFT STRUCTURAL REPAIR MECHANIC-SUPERVISOR BODY ASSEMBLY - 09/23/2023 11:01 AM EST Neurology Inpatient Progress Note (Video) [facility] 09/23/2023 Patient: Ortiz Gorman Date of [...] problems updated. 47 y.o. male presented to [facility] on 09/21/2023 with AMS PLAN: Altered [...] Oral SpO2: 97% 98% 97% Weight: Height: SWATRZ: DNFC: Does Not Follow Commands KENN: Unable [...] & GROSS MOTOR: Abnormal Movements: None Coordination Ritbxg-sg-Cuwm: Normal Coordination Rycz-Umvq-Zkss: Normal Drift: None Tone: Normal Bulk: Normal [...] conducted by the provider in the office: [address] [place] [address] and the patient offsite: [facility] Time spent in medical discussion with [...] assessment and plan and agree with the SUPERVISOR BODY ASSEMBLY findings and plan of care as documented. [...] Portions of this chart were created using Xolve electronic dictation. Please excuse any typographical or grammatical errors contained herein as a result. * Natty Desai - 09/23/2023 9:31 AM EST [facility] SPEECH-LANGUAGE PATHOLOGY Inpatient Clinical Dysphagia Evaluation Date of Admission: 09/21/2023 Date of Evaluation: 09/23/2023 Attending Physician: Karl Bird MD Admitting Diagnosis: ICD-10-CM 1. Altered mental status, unspecified altered mental status type R41.82 2. Hypertensive emergency I16.1 Treating Diagnosis: Dysphagia, other R13.19 Current Method of Nutrition: NPO without meds History of Presenting Illness: Ortiz Gorman is a 47 y.o. male who presents to [facility] ICU given AMS. He was intubated on 09/21/23 and extubated on 09/22/23. His drug screen was positive for Brian and MDMA. A Brain MRI from yesterday found no acute process. Ortiz Gorman was referred for a dysphagia evaluation given extubation and AMS. Prior DICE MANAGER history/Instrumentals: No previous history of ST. No [...] phase appears WFL. STRATEGIES TRIALED/Response N/A N/A [place] Swallow Screen: (administered by: Nursing) [place] Swallow Screening Screening Exclusion Criteria: unable to remain alert for testing [place] Swallow Screening Result: excluded from swallow screen [...] 1x follow up Duration: 1 week Goals: Snf: Ortiz Gorman will be able to consume [...] regarding dysphagia diagnosis, diet, and treatment recommendations. DICE MANAGER will assist in establishing adequate oral hygiene for reduced risk of pulmonary compromise given dysphagia diagnosis. Natty Desai MS, [facility]-DICE MANAGER Speech-Language Pathologist Total Treatment Time: 15 minutes * TAN Moctezuma - 09/22/2023 3:42 PM EST Chart reviewed. Patient extubated this afternoon. SW attempted to speak with patient x2 after extubation, neurology in room and then patient was at MRI. Will continue to follow. [facility] Nurse Note* Nursing Notes - Natalio Naranjo RN - 09/23/2023 12:00 PM EST Head to toe reassessment completed by newswriter and is unchanged from previous head to toe assessment,please refer to flow sheets. [facility]12-08-2023 Procedure note* Coretta Uyak - 09/23/2023 11:36 AM ESTAssociated Order(s): EEG AWAKE, ROUTINE Interpreting physician: Cecil Yu M.D. This is a routine EEG performed on a 47 y.o. year-old male using standard 10-20 lead placement and a [employer] system. All data was obtained digitally and [...] activity consistent with a moderate diffuse encephalopathy. [facility]12-08-2023 Procedure note* Coretta Ochoa - 09/23/2023 11:36 AM ESTAssociated Order(s): EEG AWAKE, ROUTINE Interpreting physician: Cecil Yu M.D. This is a routine EEG performed on a 47 y.o. year-old male using standard 10-20 lead placement and a [employer] system. All data was obtained digitally and [...] a moderate diffuse encephalopathy. [facility] Plan of care note* Plan of Care - Natty Desai - 09/23/2023 9:39 AM EST Problem: Dysphagia (Adult) Goal: Functional/Safe Swallow Description: Diet Recommendations and Strategies Regular Thin Liquids Meds whole with thin liquid Plan of Care: Frequency: 1x follow up Duration: 1 week Goals: Snf: Ortiz oGrman will be able to consume a Regular [...] regarding dysphagia diagnosis, diet, and treatment recommendations. DICE MANAGER will assist in establishing adequate oral hygiene for reduced risk of pulmonary compromise given dysphagia diagnosis. Outcome: Ongoing [facility]12-08-2023 Nurse Note* Nursing Notes - Sujatha Walker RN - 09/23/2023 5:07 AM EST Patient more alert than previous assessment, this nurse asked patient if he remembers any events that has happened in the last day, he said he does remember a tube being down his thoat, but does not remember why. Educated patient on what happened. [facility]12-08-2023 Nurse Note* Nursing Notes - Sujatha Walker RN - 09/23/2023 3:16 AM EST Patient able to tell this nurse it is 2022, still states he is at [facility], when reoriented that he is in [place] he states shoot I knew that . Patient pleasant but still restless in the bed, continues to roll in circles, and get up on hands and knees and rock back and forth. [facility]12-08-2023 Nurse Note* Nursing Notes - Sujatha Walker RN - 09/23/2023 2:35 AM EST Patient had episode of bowel incontinence. Patient cleaned, and placed in a brief, linens changed as well. [facility] [id number] Nurse Note* Nursing Notes - uSjatha Walker RN - 09/22/2023 11:30 PM EST Patient continues to pull lines and lead at this time. Patient pulled IV out. This nurse placed newiv in left hand at this time. [facility] [employer] [id number] Nurse Note* Nursing Notes - Sujatha Walker RN - 09/22/2023 8:30 PM EST Patient continues to roll around in bed, and get on his hands and knees in the bed. This nurse redirected patient at this time. [facility] [employer] [id number] Nurse Note* Nursing Notes - Sujatha Walker RN - 09/22/2023 7:35 PM EST Patient calm, but remains confused at this time. Stated he is at [facility], the year is 2002, and Roger is the president. Redirected patient at this time. [facility]12-07-2023 Nurse Note* Nursing Notes - Jennifer Lopez [...] temp on temporal thermometer. Jennifer Lopez RN [facility]12-07-2023 Nurse Note* Nursing Notes - Jennifer Lopez [...] placement at this time. Jennifer Lopez RN [facility]12-07-2023 Nurse Note* Nursing Notes - Jennifer Lopez [...] position in the bed. Jennifer Lopez RN [facility]12-07-2023 Nurse Note* Nursing Notes - Jennifer Lopez RN - 09/22/2023 3:07 PM EST Delia discontinued per MD. Patient going to MRI. Neuro in to see. Jennifer Lopez RN [facility]12-07-2023 Nurse Note* Nursing Notes - Jennifer Lopez RN - 09/22/2023 2:17 PM EST Patient still drowsy, wakes for a brief moment, will open eyes and look at you but will shake his head no to any question asked him. Son's updated on plan of care for patient. Jennifer Lopez RN [facility]12-07-2023 Nurse Note* Nursing Notes - Jennifer Lopez RN - 09/22/2023 1:56 PM EST Patient was extubated at 1340, patient is drowsy but vitals are stable. Neurology consult made. RSVswab done and sent to lab. Son's at bedside. Jennifer Lopez RN [facility]12-07-2023 Progress note* Therapy Note - Salazar Holley, YASH - 09/22/2023 1:36 PM EST Patient extubated and placed on 2LPM nasal cannula. [facility]12-07-2023 Consult note* RODRIGUEZ Serrano - 09/22/2023 1:28 PM ESTAssociated Order(s): IP CONSULT TO NEUROLOGY Neurology Inpatient Consult (Video) [facility] 09/22/2023 Patient: Ortiz Gorman Date of : 1975 (47 y.o.) Referring Provider: Refer to consult order in electronic medical record PCP: Vincent Winters ASSESSMENT: Principal Diagnosis: Acute respiratory failure Active Pertinent Problems and Diagnoses Present on Admission: Acute respiratory failure Acute delirium Polysubstance use disorder Renal insufficiency Additional Active Pertinent Problems and Diagnoses No problems updated. 47 y.o. male presented to [facility] on 09/21/2023 with AMS PLAN: Altered [...] & GROSS MOTOR: Abnormal Movements: None Coordination Sindpl-zm-Prof: Normal Coordination Peie-Wkat-Fdvm: Normal- requires demonstration Drift: None Tone: Normal Bulk: Normal MUSCLE STRENGTH: Hand grasp equal bilaterally. Able to overcome antigravity and maintain. SENSATION: Fine Touch: Normal Patient verbally consents to the submissions of a Video health visit, patient is aware of the risks, benefits, and possible coinsurance/copay cost. Video was conducted by the provider in the office: [address] [place] [address] and the patient offsite: [facility] Time both providers spent in medical discussion with patient 72 minutes Aracely Richard APRN-[facility] Associated attestation - Cecil Yu MD - 09/22/2023 9:22 PM EST I have personally visualized and examined Ortiz Goramn and I agree with the physical exam as statedbelow. I have personally reviewed all available clinical data related to today's encounter including, but not limited to, radiology images and reports, laboratory data, and procedure reports. I have been fully involved in formulation of the assessment and plan and agree with the [facility] findings and plan of care as [...] Portions of this chart were created using Xolve electronic dictation. Please excuse any typographical or grammatical errors contained herein as a result. [facility]12-07-2023 Consult note* Aracely Richard AIRCRAFT STRUCTURAL REPAIR MECHANIC-SUPERVISOR BODY ASSEMBLY - 09/22/2023 1:28 PM ESTAssociated Order(s): IP CONSULT TO NEUROLOGY Neurology Inpatient Consult (Video) [facility] 09/22/2023 Patient: Ortiz Gorman Date of : 1975 (47 y.o.) Referring Provider: Refer to consult order in electronic medical record PCP: Vincent Winters ASSESSMENT: Principal Diagnosis: Acute respiratory failure Active Pertinent Problems and Diagnoses Present on Admission: Acute respiratory failure Acute delirium Polysubstance use disorder Renal insufficiency Additional Active Pertinent Problems and Diagnoses No problems updated. 47 y.o. male presented to [facility] on 09/21/2023 with AMS PLAN: Altered [...] & GROSS MOTOR: Abnormal Movements: None Coordination Gxqmie-fm-Lhhq: Normal Coordination Tzxq-Tnke-Nsqx: Normal- requires demonstration Drift: None Tone: Normal Bulk: Normal MUSCLE STRENGTH: Hand grasp equal bilaterally. Able to overcome antigravity and maintain. SENSATION: Fine Touch: Normal Patient verbally consents to the submissions of a Video health visit, patient is aware of the risks, benefits, and possible coinsurance/copay cost. Video was conducted by the provider in the office: [address] [place] [address] and the patient offsite: [facility] Time both providers spent in medical discussion with patient 72 minutes Aracely Richard APRN-[facility] Associated attestation - Cecil Yu MD [...] assessment and plan and agree with the SUPERVISOR BODY ASSEMBLY findings and plan of care as documented. [...] Portions of this chart were created using Xolve electronic dictation. Please excuse any typographical or grammatical errors contained herein as a result. documented in this encounter[facility] Progress note* Therapy Note - Salazar Holley RRT - 09/22/2023 12:21 PM EST ABG results given to Dr. Bird. [facility]12-07-2023 Progress note* Therapy Note - Salazar Holley RRT - 09/22/2023 12:[address] Bird called regrding abg results. No answer. Message left. [facility]12-07-2023 Progress note* Therapy Note - Salazar [...] was drawn. Patient remains in PS mode. [facility]12-07-2023 History and physical note* Cecil Ivan, FAYE-SUPERVISOR BODY ASSEMBLY - 09/22/2023 10:05 AM EST History and [...] 09/21/2023 YELLOW APPEARANCE, URINE 09/21/2023 CLEAR Specific [place], Urine 09/21/2023 >1.030 (H) PH URINE 09/21/2023 [...] GLUCOSE, POINT OF CARE 09/21/2023 232 (H) Aircraft Structural Fitter 09/21/2023 206,283 MAGNESIUM 09/21/2023 2.0 GLUCOSE, POINT OF CARE 09/21/2023 158 (H) Aircraft Structural Fitter 09/21/2023 205,802 GLUCOSE, POINT OF CARE 09/22/2023 109 (H) Aircraft Structural Fitter 09/22/2023 206,346 GLUCOSE, POINT OF CARE 09/22/2023 95 Aircraft Structural Fitter 09/22/2023 205,802 WBC (WHITE BLOOD COUNT) 09/22/2023 [...] 99. GLUCOSE, POINT OF CARE 09/22/2023 80 Aircraft Structural Fitter 09/22/2023 206,124 MAGNESIUM 09/22/2023 2.0 Impression and [...] for Dr. Bird 16 minutes spent of SUPERVISOR BODY ASSEMBLY time including assessment, planning, and discussion with nursing staff and patient Please note Portions of this note utilized Xolve dictation software, please excuse any typographical or [...] Please note: Portions of this note utilized Xolve dictation software, please excuse any typographical or grammatical errors. Which inadvertently, might change the meaning and understanding. [facility] + Plan [facility]* Assessment & Plan Note - RODRIGUEZ Shepherd - 09/22/2023 10:05 AM ESTAssociated Problem(s): Polysubstance use disorder Positive for benzos and MDMA Complete cessation will be advised [facility] History and physical note* RODRIGUEZ Shepherd [...] 09/21/2023 YELLOW APPEARANCE, URINE 09/21/2023 CLEAR Specific [place], Urine 09/21/2023 >1.030 (H) PH URINE 09/21/2023 [...] GLUCOSE, POINT OF CARE 09/21/2023 232 (H) Aircraft Structural Fitter 09/21/2023 206,283 MAGNESIUM 09/21/2023 2.0 GLUCOSE, POINT OF CARE 09/21/2023 158 (H) Aircraft Structural Fitter 09/21/2023 205,802 GLUCOSE, POINT OF CARE 09/22/2023 109 (H) Aircraft Structural Fitter 09/22/2023 206,346 GLUCOSE, POINT OF CARE 09/22/2023 95 Aircraft Structural Fitter 09/22/2023 205,802 WBC (WHITE BLOOD COUNT) 09/22/2023 [...] 99. GLUCOSE, POINT OF CARE 09/22/2023 80 Aircraft Structural Fitter 09/22/2023 206,124 MAGNESIUM 09/22/2023 2.0 Impression and [...] for Dr. Bird 16 minutes spent of SUPERVISOR BODY ASSEMBLY time including assessment, planning, and discussion with nursing staff and patient Please note Portions of this note utilized [employer] Guide[employer] software, please excuse any typographical or grammatical errors Associated attestation - Karl Bird MD - 09/22/2023 10:40 PM EST I have personally seen and examined Ortiz oGrman. I have personally reviewed all available clinicaldata [...] Please note: Portions of this note utilized Xolve dictation software, please excuse any typographical or grammatical errors. Which inadvertently, might change the meaning and understanding. documented in this encounterBellevue Hospital12-07-[facility]23 Evaluation + Plan note * Assessment & Plan Note - RORDIGUEZ Shepherd - 09/22/2023 10:04 AM ESTAssociated Problem(s): Acute respiratory failure Patient without hypoxia - Intubated due to combativeness Attempt wean/extubate today CXR non-acute 02 per protocol, IS Routine aerosols [facility] Evaluation + Plan note* Assessment & Plan Note - RODRIGUEZ Shepherd - 09/22/2023 10:04 AM ESTAssociated Problem(s): Acute delirium Secondary to drug effects CT head non-acute Supportive care [facility]12-07-2023 Nurse Note* Nursing Notes - Jennifer Lopez RN - 09/22/2023 7:56 AM EST Morning assessment completed, Patient at appropriate level of sedation. Resting comfortable in bed,eyes closed. Vitals stable. Patient's mother called in and update give. Morning Labs drawn. Jennifer Lopez RN [facility]12-07-2023 Plan of care note* Plan of Care [...] discharge/transition of care. Outcome: Progressing Toward Goal [facility] Lela [id number] Nurse Note* Nursing Notes - Amna Irvin RN - 09/22/2023 5:15 AM EST Precedex drip running, working to turn propofol down to wean off and precedex up to help keep pt calm. [facility] Lela [id number] Nurse Note* Nursing Notes - Amna Irvin RN - 09/22/2023 4:20 AM EST Pt finally relaxing and less agitated, will continue to monitor. [facility] Lela [id number] Nurse Note* Nursing Notes - Amna Irvin RN - 09/22/2023 3:15 AM EST Staff x4 in room to help protect pt as he is restless and agitated, sit up in bed, Dr. Bird notified to verify earlier order to change to precedex and discontinue propofol, states to proceed with this as stated earlier. [facility] Lela [id number] Nurse Note* Nursing Notes - Amna Irvin RN - 09/22/2023 2:45 AM EST Pt awakens suddenly and quickly becomes agitated, due to situation propofol increased to try to calm pt. [facility]12-07-2023 Nurse Note* Nursing Notes - Amna Irvin RN - 09/22/2023 1:15 AM EST Sedation titrated down due to low BP, pt then becomes very agitated and combative, BP increases, propofol titrated back up and pt calms, Dr. Bird notified of this, orders received. [facility]12-06-2023 Nurse Note* Nursing Notes - Amna Irvin RN - 09/21/2023 9:30 PM EST Attempt to place OG without success, and then attempt NG also without success, pt becomes agitated during this, propofol adjusted. [facility]12-06-2023 Emergency department Note* Josie Hannah RN - 09/21/2023 9:24 PM EST Call to family to update on transferr to ICU. Call to Sherly Gentile @ [phone]. [facility]12-06-2023 Emergency department Note* Josie Hannah RN - 09/21/2023 9:24 PM EST Call to family to update on transferr to ICU. Call to Mom Sherrie Gentile @ [phone]. * Sirena Hernandez RN - 09/21/2023 8:32 [...] 4:33 PM EST EMERGENCY DEPARTMENT REPORT [facility] ICU SERVICE DATE: 09/21/23 PCP: Vincent Winters [...] Patient admitted to the ICU under the data librarian service for further evaluation and treatment. ORDERS/RESULTS: [...] CARE 232 (H) 70 - 100 MG/DL Aircraft Structural Fitter 206,283 ARTERIAL BLOOD GAS Result Value Ref [...] YELLOW YELLOW APPEARANCE, URINE CLEAR CLEAR Specific [place], Urine >1.030 (H) 1.010 - 1.025 PH [...] Portions of this chart were created using Xolve electronic dictation. Please excuse any typographical or [...] was unresponsive. Per ems documented in this encounterBellevue Hospital12-06-2023 Nurse Note* Nursing Notes - Amna Irvin RN - 09/21/2023 9:00 PM EST On admission to [facility] ICU, from ED a dual RN initial assessment of skin condition was performed by Amna Irvin RN and Joseline Paez RN. Skin Assessment: Skin within defined limits:Yes Pt has some scabs and abrasions to bilateral shins. Derek Score: 12 LDA Added:No Amna Irvin RN [facility]12-06-2023 Nurse Note* Nursing Notes - Amna Irvin RN - 09/21/2023 8:45 PM EST Loop here as pt arrives to ICU, [facility]12-06-2023 Emergency department Note* Sirena Hernandez RN - 09/21/2023 8:32 PM EST This RN speaks with loop and gives them patient name. [facility]12-06-2023 Emergency department Note* Josie Hannah RN - 09/21/2023 7:00 PM EST Multiple attempts at OG/NG tube placement unsuccessful, Dr Beltran aware. [facility]12-06-2023 Emergency department Note* Sirena Hernandez RN - 09/21/2023 6:18 PM EST Multiple attempts to place OG and NG tube by this RN, Deanna Barbosa RN, and Martina OCONNELL. All attempts unsuccessful. Family is waiting room, Dr Beltran aware and states he will talk with family. [facility]12-06-2023 Emergency department Note* Sirena Hernandez RN - 09/21/2023 5:35 PM EST Attempting to place OG tube. Patient is agitated and pulling arms and kicking legs. Dr Beltran aware. Verbal order to place vecuronium. [facility]12-06-2023 Emergency department Note* Sirena Hernandez RN - 09/21/2023 4:53 PM EST Lab bedside [facility]12-06-2023 Emergency department Note* Sirena Hernandez RN - 09/21/2023 4:44 PM EST Patient has abrasions to bilateral shins. Blood on patients jeans. [facility]12-06-2023 Progress note* Therapy Note - Cami Meyer RCP - 09/21/2023 4:36 PM EST Ventilator initiated at this time. Refer to flowsheets for settings and readings. [facility]12-06-2023 Physician Emergency department Note* Reginaldo Beltran MD - 09/21/2023 4:33 PM EST EMERGENCY DEPARTMENT REPORT [facility] ICU SERVICE DATE: 09/21/23 PCP: Vincent Winters [...] Extremities: No lower extremity pitting edema. Neurological: Bethel coma Scale: 3. VITAL SIGNS DURING ED [...] Patient admitted to the ICU under the data librarian service for further evaluation and treatment. ORDERS/RESULTS: [...] CARE 232 (H) 70 - 100 MG/DL Aircraft Structural Fitter 206,283 ARTERIAL BLOOD GAS Result Value Ref [...] YELLOW YELLOW APPEARANCE, URINE CLEAR CLEAR Specific [place], Urine >1.030 (H) 1.010 - 1.025 PH [...] Portions of this chart were created using Xolve electronic dictation. Please excuse any typographical or grammatical errors contained herein. Reginaldo Beltran MD 09/21/232117 [facility] Progress note* Therapy Note - Cami Meyer RCP - 09/21/2023 4:30 PM EST Pt intubated with size 8.0 ETT 26@ teeth by Dr Beltran. Positive color change on EtCO2 with equal breath sounds noted. Vocal cords visualized via GlideScope. SpO2 100% while being bagged with 100% FiO2. [facility]12-06-2023 Emergency department Note* Sirena Hernandez RN - 09/21/2023 4:25 PM EST BS 256. [facility]12-06-2023 Emergency department Note* Sirena Hernandez RN - 09/21/2023 4:22 PM EST Pt EMS patient was found at home by son and was unresponsive. Pt became combative en route to ED and was placed in soft restraints and given 7.5 mg versed. Pt arrives to ED unresponsive. [facility]12-06-2023 Emergency department Note* Sirena Hernandez RN - 09/21/2023 4:[address] Beltran and respiratory bedside, [facility]12-06-2023 Emergency department Note* Sirena Hernandez RN - 09/21/2023 4:21 PM EST Pt unresponsive. Per EMS, patient was found home by son and was unresponsive. Per ems [facility]07-04-2022 Hospital Discharge instructions* Instructions* Lulú Bush DO - 04/20/2022 Start taking her blood pressure medication as prescribed. Please follow-up with your doctor in the next 2 to 3 days. * Attachments The following attachments cannot be sent through Care Everywhere. * HTN (Hypertension): Diuretics: General Info (Surinamese) [facility] [place] [employer] Phone: evaluation + Plan note No data available for this section [facility] [facility] [place] Evaluation note* Diagnosis Acute nonintractable headache, unspecified headache type- Primary Elevated blood pressure reading Elevated blood pressure reading without diagnosis of hypertension documented in this encounter [facility] [place] [employer] Phone: evalkubcaj note* Diagnosis Essential hypertension- Primary Unspecified essential hypertension Acute headache, unspecified headache type documented in this encounter [facility] [place] [employer] Phone: [email or web address] note* Diagnosis Acute respiratory failure- Primary Altered mental status, unspecified altered mental status type Hypertensive emergency Unspecified essential hypertension Acute delirium Other alteration of consciousness Polysubstance use disorder Renal insufficiency Unspecified disorder of kidney and ureter Type 2 Diabetes (A1C > 6.49%) documented in this encounter [facility]* Diagnosis Hypertensive encephalopathy- Primary Hypertensive emergency Unspecified essential hypertension documented in this encounter [facility] [place] [employer] [facility] note* Diagnosis Hypertensive encephalopathy- Primary Central apnea Apnea NSTEMI (non-ST elevated myocardial infarction) ([facility]) Acute myocardial infarction, subendocardial infarction, episode of care unspecified Hypertensive emergency Unspecified essential hypertension Fever Fever, unspecified Altered mental status Encephalopathy acute Encephalopathy, unspecified Diabetic acidosis without coma ([facility]) Type II or unspecified type diabetes mellitus with ketoacidosis, not stated as uncontrolled Hypertensive urgency Unspecified essential hypertension Lactic acidosis Acidosis Central apnea Apnea documented in this encounter [facility] [place] [employer] [facility] note* Diagnosis Hypertensive encephalopathy- Primary Diabetic ketoacidosis [...] hazards to health documented in this encounter [facility] [employer] note* Diagnosis DKA, type 2, not at [...] diabetes mellitus (HCC) documented in this encounter [facility] Discharge instructions* Instructions* Cheng Lira MD [...] through Care Everywhere. * Blood Pressure: Elevated (Surinamese) * Headache (Surinamese) [facility] Work Phone: Hospital Discharge instructions No data available for this section [facility] [place] Progress note No data available for this section [facility] [place] Reason for referral (narrative)* (Routine) Specialty Diagnoses / Procedures Referred By Sergei barbosa Referred To Contact [facility] [place] [facility] [address] [place] [address] Referral ID Status Reason Start Date Expiration Date Visits Re quested Visits Authorized * Unlisted Procedure Code (Routine) - New Request Specialty Diagnoses / Procedures Referred By Contchase t Referred To Contact Procedures INPATIENT ADMISSION NOTIFICATION Karl Bird MD [address] [facility] [place] [address] Referral ID Status Reason Start Date Expiration Date V isits Requested Visits Authorized [id number] New Request 09/21/2023 10/15/2024 1 1 * (Routine) Specialty Diagnoses / Procedures Referred By Contac t Referred To Contact [place] [address] Referral ID Status Reason Start Date Expiration Date Visits Re quested Visits Authorized [facility] Advance Directives No Advanced Directives Records [...] Documents on File Type Date Recorded 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 ACP-Advance Directive 01/25/2024 11:19 AM Date Activated Date Inactivated Comments 01/19/2024 3:59 AM 01/22/2024 8:24 PM Date Activated Date Inactivated Comments 10/27/2021 3:33 PM 11/02/2021 6:24 PM Healthcare Agents on File Name Relationship Healthcare Agent Relationshi p Communication Shane Z Child Primary Decision Maker Trent Romero Child Secondary Decision Maker Documents on File Type Date Recorded 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 Pt does have a history of neuropathy and HTN Reason Comments Other Unresponsive. Snorin g respirations and periods of apnea Specialty Diagnoses / Procedures Referred By Contac t Referred To Contact Diagnoses Acute respiratory failure Hypertensive emergency Altered mental status, unspecified altered mental status type Karl Bird MD [address] [facility] [place] [address] [facility] Referral ID Status Reason Start Date Expiration Date Visits Re quested Visits Authorized [id number] 1 1 Reason Comments Aphasia Headache Pt arrives to ED wit h slurred speech and headache weakness on left side. LKW appx 2130. Specialty Diagnoses / Procedures Referred By Contac t Referred To Contact Diagnoses Hypertensive encephalopathy Hypertensive emergency Hypertensive Emergency Sarmad Daly MD [address] [address] [employer] [facility] [address] [place] [address] Referral ID Status Reason Start Date Expiration Date Visits Re quested Visits Authorized [id number] 1 1 Reason Comments Altered Mental Status Patient known diab etic, found by family this am on floor. Last known well was 830 PM last night. Specialty Diagnoses / Procedures Referred By Contac t Referred To Contact Diagnoses DKA, type 2, not at goal (HCC) DKA, ARF Stanley Mckenzie MD [address] [address] [facility] [address] [place] [address] Referral ID Status Reason Start Date Expiration Date Visits Re quested Visits Authorized [id number] 1 1 Scheduled Active and Recently Administ [...] dose on Roz 09/22/23 at 1200, At [facility], in emergencies, administer as rapidly as necessary [...] to the hypoglycemia management protocol on Ellucid: P-TE-Orcglbzbgofn Management Protocol Haloperidol lactate (HALDOL) injection 5 [...] refer to the [facility]: L-EP-Lakzacjssdak Management Protocol
And Dextrose 10% IV solution [...] at 1300, Until Specified
Who to Notify: DRAPERY AND UPHOLSTERY ESTIMATOR/Physician
For all Blood Glucose LESS THAN 70 mg/dl, or greater than 400 mg/dl notify DRAPERY AND UPHOLSTERY ESTIMATOR/Physician Scheduled Medication Order 01/17/2024 01/18/2024 01/19/2024 labetalol [...] sodium chloride 0.9 % 250 mL infusion (Kncb4Kpq) 2.5-15 mg/hr (25-150 mL/hr), IntraVENous, CONTINUOUS, Starting [...] be used to maintain goal. Use 20mm Avqo9Pnr adapter. Preparation Instructions: Attach medication vial to one 20mm Bxny5Enm adapter. Darvin fluid bag with adaptor, mix, [...] Booth RN)1118 (New Bag - Provider: Rashid Booht, KOURTNEY)1244 (Rate/Dose Change - Provider: Rashid Booth, [...] Allison Marquez RN)1130 (Stopped - Provider: Allison aMrquez RN) vancomycin (VANCOCIN) 2000 mg in 400 [...] sodium chloride 0.9 % 250 mL infusion (Lwwn6Pre) 2.5-15 mg/hr (25-150 mL/hr), IntraVENous, CONTINUOUS, Starting [...] used to maintain goal. Use 20mm (Blue) Drca1Jze Adapter Preparation instructions: Attach medication vial to one 20mm (Blue) Vkhj9Omv adapter. Darvin fluid bag with adapter, mix, [...] - Comment: Plan for Loop recorder implantation. DRAPERY AND UPHOLSTERY ESTIMATOR aware & ok to hold)1400 (Given - [...] Reason: Order parameters not met - Comment: [phone] (Not Given - Provider: Gabriela Rivas RN - Reason: Order parameters not met)1711 (Given - Provider: Gabriela Rivas RN)2128 (Not Given - Provider: Coretta Mitchell RN - Reason: Order parameters not met) 0625 (Given - Provider: Coretta Mitchell RN - Comment: [phone] (Given - Provider: Gabriela Rivas RN)162 (Given [...] mg from all sources in 24 hours. xaqzfskc-vdnfvxpwcx-hlzmnzzu ne (CETACAINE) spray (CANCELED) PRN, Starting on [...] for injection by adding 1 mL of family service counselor-supplied sterile diluent or sterile water for injection [...] Care Teams (unrecognized sec tion and content) Technology Instructor Relationship Specialty Start Date End Date Vincent Winters MD [address] [place] [address] PCP - General Family Medicine 10/27/21 Technology Instructor Relationship Specialty Start Date End Date Vincent Winters MD [address] [place] [facility] [address] PCP - General Family Medicine 10/27/21 Technology Instructor Relationship Specialty Start Date End Date Vincent Winters MD [address] [place] [facility] [place] [address] PCP - General Family Medicine 09/21/23 Technology Instructor Relationship Specialty Start Date End Date Vincent Winters MD [address] [place] [address] PCP - General Family Medicine 10/27/21 Technology Instructor Relationship Specialty Start Date End Date Vincent Winters MD [address] [place] [address] PCP - General Family Medicine 10/27/21 Technology Instructor Relationship Specialty Start Date End Date Vincent Winters MD [address] [place] [address] PCP - General Family Medicine 10/27/21 Technology Instructor Relationship Specialty Start Date End Date Vincent Winters MD [address] [place] [address] PCP - General Family Medicine 10/27/21 Technology Instructor Relationship Specialty Start Date End Date Vincent Winters MD [address] [place] [facility] [address] PCP - General Family Medicine 10/27/21 Technology Instructor Relationship Specialty Start Date End Date Vincent Winters MD [address] [place] [address] PCP - General Family Medicine 10/27/21 Ordered [...] DATE CREATED AUTHOR AUTHOR'S ORGANIZ ATION 08/14/2023 [facility] DATE CREATED AUTHOR AUTHOR'S ORGANIZ ATION 10/23/2023 [facility] DATE CREATED AUTHOR AUTHOR'S ORGANIZ ATION 03/01/2024 [facility] DATE CREATED AUTHOR AUTHOR'S ORGANIZ ATION 03/02/2024 [facility] DATE CREATED AUTHOR AUTHOR'S ORGANIZ ATION 10/25/2024 [facility] DATE CREATED AUTHOR AUTHOR'S ORGANIZ ATION 10/27/2024 [facility] pital FOR RECORDS PERTAINING TO PATIENTS WHO [...] BE BASED ON THE PRIMARY CLINICAL RECORDS. [facility] [employer] [facility]. provides no warranty or guarantee of the accuracy or completeness of information in this document.
--- NOTE | 2024-11-05 00:16 | PC.NURSE ---
this patient was taken upstairs via the bed, this patient awake and alert and voices no complaints and shows no signs of distress. the patient belong placed in a blue plastic bag 1, baseball call,1 cell phone, 1 brown shirt and 1 coat. this patient said son took home his wallet
[2024-11-05 05:19] LABS: Basophils Percent Auto 0.7 % (0.2-2.0); Eosinophils Absolute Auto 0.2 10^3/uL (0.0-0.7); Eosinophils Percent Auto 3.1 % (0.9-7.0); Hemoglobin 7.3 g/dL (14.0-18.0); Immature Granulocytes Abs Auto 0.01 10^3/uL (0.00-0.03); Immature Granulocytes Pct Auto 0.2 % (0.0-0.5); Lymphocytes Percent Auto 17.8 % (20.5-60.0); Mean Corpuscular HGB Conc 33.3 g/dL (29.9-35.2); Mean Corpuscular Hemoglobin 29.4 pg (25.9-34.0); Mean Corpuscular Volume 88.3 fL (80.0-94.0); Mean Platelet Volume 9.7 fL (9.5-13.5); Monocytes Absolute Auto 0.6 10^3/uL (0.3-0.8); Monocytes Percent Auto 10.7 % (1.7-12.0); Neutrophils Absolute Auto 3.7 10^3/uL (1.4-6.5); Neutrophils Percent Auto 67.5 % (43.0-75.0); Platelet Count 192 10^3/uL (150-450); Red Blood Count 2.48 10^6/uL (4.70-6.10); White Blood Count 5.5 10^3/uL (4.0-11.0)
[2024-11-05 05:44] LABS: Alanine Aminotransferase 24 U/L (16-63); Albumin Globulin Ratio 0.9; Albumin Level 2.7 g/dL (3.4-5.0); Alkaline Phosphatase 87 U/L (46-116); Anion Gap 11.7; Aspartate Amino Transferase 17 U/L (15-37); BUN Creatinine Ratio 23.7; Bilirubin Total 0.2 mg/dL (0.2-1.0); Calcium 8.4 mg/dL (8.5-10.1); Carbon Dioxide 23.9 mmol/L (21.0-32.0); Chloride 111 mmol/L (98-107); Estimated GFR (African America 35 (>=60 mL/min/1.73m^2); Estimated GFR (Non-African Ame 29 (>=60 mL/min/1.73m^2); Glucose 97 mg/dL (74-106); Magnesium 1.8 mg/dL (1.8-2.4); Potassium 5.6 mmol/L (3.5-5.1); Sodium 141 mmol/L (136-145); Total Protein 5.7 g/dL (6.4-8.2)
[2024-11-05 06:08] LABS: Hematocrit 21.9 % (42.0-54.0)
[2024-11-05 07:16] LABS: Glucometer 92 mg/dL (74-106)
--- NOTE | 2024-11-05 07:49 | CA_ITS ---
Patient Name: JOSÉ LUIS GORMAN MR#: [id number] : 1975 Exam Date: 11/05/2024 Ordering Doctor: DR Vincent Martinez . ECHOCARDIOGRAM REPORT PROCEDURE: CA ECHO DOPPLER COMPLETE INDICATIONS: Dyspnea, hyperkalemia, hypertension, diabetes COMPARISON: None. DESCRIPTION: COMPLETE ECHOCARDIOGRAM Real-time transthoracic echocardiography with 2D, M-mode, spectral and color flow Doppler performed. QUALITY: Technical quality was good. LEFT VENTRICLE: Normal chamber size. Mildly thickened septal wall. LV EF: Normal left ventricular ejection fraction 65%, no regional wall motion abnormalities. DIASTOLIC: Normal diastolic function ATRIAL SEPTUM: Appears intact LEFT ATRIUM: Normal chamber size. RIGHT ATRIUM: Normal chamber size. RIGHT VENTRICLE: Normal chamber size. Normal right ventricular systolic function. TRICUSPID VALVE: Normal mobility and thickness. No stenosis with trivial regurgitation. Doppler studies reveal moderately (45-60) elevated right sided pressures.RVSP 58 mmHg MITRAL VALVE: Normal mobility and thickness. No evidence of mitral valve stenosis. There is no mitral annular calcification. No mitral regurgitation. AORTIC VALVE: Normal trileaflet appearance. Thickened aortic valve. Normal leaflet mobility. No evidence of aortic valve stenosis. No aortic regurgitation. AORTIC ROOT: Normal diameter and appearance. PULMONIC VALVE: Normal thickness and mobility. No stenosis. Trivial regurgitation. PERICARDIUM: No evidence of pericardial effusion. IVC: IVC is dilated (2.8 cm) with no collapse consistent with elevated central venous pressure, RAP 15 mmHg. PLEURA: CONCLUSION: Normal left ventricular systolic function without wall motion abnormalities, ejection fraction 65% Normal diastolic function Mildly thickened intraventricular septum Normal right ventricle size and systolic function Moderate pulmonary hypertension, RVSP 58 mmHg Trivial tricuspid regurgitation No significant valvular abnormalities Dilated IVC, no respiratory collapse consistent with elevated central venous pressure, RAP 15 mmHg Adult Echocardiography Procedure Report Left Ventricle LVEDD (3.7 - 5.6 cm): 4.05 cm LVESD (2.2 - 4.0 cm): 3.04 cm LVIVS thickness (0.6 - 1.2 cm): 1.43 cm LVPW thickness (0.5 - 1.0 cm): 1.00 cm e': 0.13 m/s E - e': 7.07 LVOT Max Gradient: 4.01 mm[Hg] LVOT Area (cm2): 1.00 m/s Peak Velocity (LVOT): 1.00 m/s Mean Velocity (LVOT): 0.63 m/s LVOT Diameter 2.57 cm Left Atrium LA Volume Index (2D A2C): 24.79 ml/m2 Left Atrium Systolic Dimension: 2.73 cm Mitral Valve MV E to A Ratio: 1.33 Mitral Valve A-Wave Peak Velocity: 0.71 m/s Mitral Valve E-Wave Peak Velocity: 0.94 m/s Right Ventricle Aorta AO Root Diam: 3.90 cm Aortic Valve AoV Area (Peak Anders): 4.08 cm2, 4.08 cm2 AoV Area (VTI): 3.60 cm2, 3.60 cm2 Peak Velocity(Antegrade Flow): 1.27 m/s Peak Gradient(Antegrade Flow): 6.46 mm[Hg] Mean Velocity(Antegrade Flow): 0.87 m/s Mean Gradient(Antegrade Flow): 3.48 mm[Hg] Velocity Time Integral: 27.50 cm Tricuspid Valve Peak Velocity (Regurgitant Flow): 3.28 m/s Pulmonic Valve Mean Gradient: 1.45 mm[Hg] Mean Velocity: 0.56 m/s Peak Velocity: 0.82 m/s, 0.89 m/s Peak Gradient: 3.16 mm[Hg], 2.67 mm[Hg] Right Atrium Right Atrium Systolic Pressure: Dictated by: Maria M Pan MD on 11/06/2024 at 09:50 Approved by: Maria M Pan MD on 11/06/2024 at 09:59
[2024-11-05] MEDS: ASPIRIN 81 MG TAB.CHEW PO (08:20)
[2024-11-05] MEDS: HYDRALAZINE HCL 50 MG TABLET PO ×2 (08:20→21:55)
[2024-11-05] MEDS: PANTOPRAZOLE SODIUM 40 MG VIAL IV (08:20)
[2024-11-05] MEDS: ATORVASTATIN CALCIUM 40 MG TABLET PO (08:21)
[2024-11-05] MEDS: LEVETIRACETAM 500 MG TABLET 1000 MG PO ×2 (08:21→21:55)
[2024-11-05] MEDS: CARVEDILOL 25 MG TABLET PO ×2 (08:21→21:55)
--- NOTE | 2024-11-05 08:21 | P.HP_ITS ---
HPI H&P: HPI History of Present Illness Chief complaint: ACUTE HYPERKALEMIA, ACUTE KIDNEY INJURY, ANASARCA Narrative: Patient was seen in the office last week, we started him on Lasix and Aldactone for significant peripheral edema including scrotal edema, workup was in place for ultrasound of his legs and heart, that was supposed to happen today, but yesterday had increasing swelling, can barely move his legs the swelling was so severe that he presented to the emergency room. In the emergency room found to have significant elevation of his potassium likely secondary to the Aldactone and acute elevation in creatinine, with the severe hyperkalemia patient was admitted to the ICU When I saw patient up in the intensive care unit, he was resting company in bed, no shortness of breath no chest pain just has the swelling in his lower extremities he can move his extremities more this morning than he did yesterday. Feels the scrotal swelling is improved also Opioid HPI Opioid Management Most Recent Pain and Opioid Data: Last Pain Assessment 11/05/24 06:04 Last ORT Total Score 1 11/05/24 00:26 11/05/24 Last ORT Risk Category Low Risk 11/05/24 00:26 11/05/24 Review of Systems ROS Status of ROS 10 or more systems reviewed and unremark able except as noted in history and below PFSH PFS Medical History (Updated 11/04/24 @ 23:32 by Cassandra Woods DO) Dyslipidemia ?E78.5 - Hyperlipidemia, unspecified (ICD-10) Benign essential hypertension ?I10 - Essential (primary) hypertension (ICD-10) Uncontrolled hypertension ?I10 - Essential (primary) hypertension (ICD-10) Infection of muscle of back ?M60.08 - Infective myositis, other site (ICD-10) Diabetes ?E11.9 - Type 2 diabetes mellitus without complications (ICD-10) Family History (Updated 11/05/24 @ 00:32 by Trinity Moore) Other Family history of diabetes mellitus Family history of hypertension Family history of stroke Social History (Updated 11/05/24 @ 00:35 by Trinity Moore) Within the past year, how often did you have a drink containing alcohol: monthly or less Within the past year, how many standard drinks containing alcohol did you have on a typical day: 1 or 2 Within the past year, how often did you have six or more drinks on one occasion: never Total score: 0 Score interpretation: A score less than 4 is consistent with normal alcohol consumption. Smoking status: Never smoker Do you use any of these nicotine containing products: smokeless tobacco Non-prescribed substance use: denies use Previous occupational history: [employer] Highest level of school completed/degree received: high school graduate Are you now , , , , never or living with a partner: In a typical week, how many times do you talk on the telephone with family, friends, or neighbors: twice per week How often do you get together with friends or relatives: once per week How often do you attend voodoo or druze services: never Do you belong to any clubs or organizations such as voodoo groups unions, [employer] or athletic groups, or school groups: no Total score: 1 Score interpretation: A score of less than or equal to 1 indicates the most socially isolated. Little interest or pleasure in doing things: more than half the days Feeling down, depressed, or hopeless: more than half the days Feel stressed/tense/nervous/anxious/difficulty sleeping: to some extent Life stressors: unknown source of stress Due to disability, difficulty making decisions: No Do you think of yourself as: straight/heterosexual Gender Identity: male Meds Home Medications and Allergies Home Medications ?Medication ?Instructions ?Recorded ?Confirmed ?Type blood-glucose meter,continuous 10/15/23 11/05/24 History (Dexcom G6 Administrative Clerk) blood-glucose sensor (Dexcom G6 10/15/23 11/05/24 History Sensor device) blood-glucose transmitter (Dexcom 10/15/23 11/05/24 History G6 Transmitter device) lisinopril 20 mg tablet 20 mg PO DAILY 10/15/23 11/04/24 History metoprolol tartrate 50 mg tablet 50 mg PO Q12H 10/15/23 11/04/24 History pen needle, diabetic 31 gauge x 10/15/23 11/05/24 History 5/16 (Easy Comfort Pen [place]) amlodipine 10 mg tablet 10 mg PO DAILY 11/04/24 11/04/24 History aspirin 81 mg chewable tablet 1 tab PO DAILY 11/04/24 11/04/24 History atorvastatin 40 mg tablet 40 mg PO DAILY 11/04/24 11/04/24 History carvedilol 25 mg tablet 25 mg PO BID 11/04/24 11/04/24 History hydralazine 50 mg tablet 50 mg PO BID 11/04/24 11/04/24 History insulin glargine 100 unit/mL (3 24 unit subcut QPM 11/04/24 11/04/24 History mL) subcutaneous pen (Lantus Solostar U-100 Insulin) insulin lispro 100 unit/mL 1 sliding scale dose subcut TID 11/04/24 11/04/24 History subcutaneous pen (Humalog KwikPen (U-100) Insulin) levetiracetam 500 mg tablet 1,000 mg PO BID 11/04/24 11/04/24 History losartan 50 mg tablet 50 mg PO DAILY 11/04/24 11/04/24 History Allergies Allergy/AdvReac Type Severity Reaction Status Date / Time No Known Drug Allergies Allergy Verified 10/15/23 23:39 Exam Constitutional Vital Signs, click to edit/add: Last Vital Signs Temp 97.4 F L 11/05/24 00:26 Pulse 82 11/05/24 06:04 Resp 15 11/05/24 04:14 BP 169/89 H 11/05/24 06:05 Pulse Ox 96 11/05/24 04:14 O2 Del Method Room Air 11/05/24 00:26 Documenting provider has reviewed patient's vital signs: yes Common normals: no apparent distress Chest Common normals: inspection of chest normal Respiratory Common normals: normal respiratory effort and no retractions Cardio Common normals: regular rate and regular rhythm GI Common normals: Normal to inspection, nondistended, normoactive bowel sounds present, soft to palpation and non-tender Scrotum: edematous Extremity Common normals: abnormal to inspection (4+ edema) Results Labs Labs: Short CBC 11/04/24 11/05/24 Range/Units 18:50 05:07 WBC 6.0 5.5 (4.0-11.0) 10^3/uL Hgb 8.1 L 7.3 L (14.0-18.0) g/dL Hct 24.9 L 21.9 L* (42.0-54.0) % Plt Count 217 192 (150-450) 10^3/uL BMP 11/04/24 11/04/24 11/05/24 18:50 22:00 05:07 Sodium 140 141 Potassium 6.8 H* 6.5 H* 5.6 H Chloride 108 H 111 H Carbon Dioxide 22.3 23.9 BUN 58.0 H 57.0 H Creatinine 2.68 H 2.41 H Glucose 153 H 97 Calcium 8.3 L 8.4 L Liver Function 11/04/24 11/05/24 Range/Units 18:50 05:07 Total Bilirubin 0.2 0.2 (0.2-1.0) mg/dL AST 20 17 (15-37) U/L ALT 29 24 (16-63) U/L Alkaline Phosphatase 111 87 (46-116) U/L Albumin 3.0 L 2.7 L (3.4-5.0) g/dL Urine 11/04/24 Range/Units 21:53 Urine Color Lt. yellow (YELLOW) Urine Clarity Clear (CLEAR) Urine pH 5.5 (5.0-9.0) Ur Specific [place] 1.015 (1.005-1.025) Urine Protein 30 A (NEG/TRACE) mg/dL Urine Glucose (UA) 100 A (NEGATIVE) mg/dL Assessment and Plan Assessment and Plan (1) Hypoalbuminemia: (2) Hypertension: (3) Acute hyperkalemia: (4) Acute kidney injury: (5) Anasarca: (6) Type 2 diabetes mellitus with hyperglycemia: (7) Benign essential hypertension: (8) Uncontrolled hypertension: Plan Admission findings: Uncontrolled hypertension, severe hyperkalemia, with a potassium of 6.8, acute kidney injury as a baseline creatinine of 1.68, admission creatinine of 2.6 today which is 159.5% above baseline with decreased urine output would make his stage I, patient admitted to ICU secondary to the severe hyperkalemia and anasarca Anasarca with acute kidney injury as outlined above-try Bumex drip today, workup to determine etiology, ultrasound of his lower extremities, CT scan of his abdomen and pelvis to rule out obstruction, echocardiogram. Anemia of chronic kidney disease stage II-monitor daily-Down somewhat today, occult blood is negative, starvation on IV Protonix though Hyperkalemia on admission-improved this morning, will hold off on further doses of Lokelma as Bumex will likely decrease it Diabetes mellitus-Home insulin plus insulin sliding scale Seizure disorder-continue with home medications Hypertension-uncontrolled, will hold off on Norvasc as that can create edema, adjust other medications as necessary Hypercholesterolemia continue with home medications Admission status: Patient with acute kidney injury stage I and acute severe hyperkalemia, admitted to the ICU, medically necessary treatment will span 2 midnights. Inpatient status
[2024-11-05] MEDS: BUMETANIDE 10 MG in 0.9 % SODIUM CHLORIDE 160 ML IV (08:44)
--- NOTE | 2024-11-05 09:14 | US_ITS ---
The [address] [address] Patient Name: JOSÉ LUIS GORMAN MRN: [id number] date: 1975 Sex: M Assigned Patient Location: ICU Current Patient Location: ICU Accession/Order Number: [id number] Exam Date: 11/05/2024 09:15 Report Date: 11/05/2024 10:10 At the request of: PAULINA WINTERS Procedure: US venous doppler LE BI CLINICAL DATA: Leg swelling PROCEDURE: Bilateral lower extremity venous duplex ultrasound TECHNIQUE: Ferrera-scale, color flow, and waveform spectral analysis was performed of the bilateral lower extremities. FINDINGS: The bilateral common femoral, profunda femoral, femoral, and popliteal veins were compressible. The saphenous veins were compressible. No venous thrombosis was seen. The veins fill with color Doppler. Augmentation was normal. Subcutaneous edema was noted. US/US venous doppler LE BI IMPRESSION: 1. No acute lower extremity deep venous thrombosis. 2. No superficial venous thrombosis. Electronically authenticated by: Kiera ALONZO Date: 11/05/2024 10:10
--- NOTE | 2024-11-05 10:50 | CT_ITS ---
The [address] [address] Patient Name: JOSÉ LUIS GORMAN MRN: [id number] date: 1975 Sex: M Assigned Patient Location: ICU Current Patient Location: ICU Accession/Order Number: [id number] Exam Date: 11/05/2024 10:40 Report Date: 11/05/2024 12:54 At the request of: PAULINA WINTERS Procedure: CT abdomen pelvis wo con EXAM: CT abdomen pelvis wo con 11/05/2024 COMPARISON STUDY: CT of the pelvis without contrast 12/30/2021 TECHNIQUE: 3 mm sections were obtained from the lung bases through the pubic symphysis following administration of oral contrast. Intravenous contrast was not utilized. Coronal and sagittal reconstructed images were obtained. HISTORY: Abd Pain CT abdomen: Acute bibasilar interstitial edema pattern with posteriorly layering small bilateral pleural effusions with adjacent compressive atelectatic changes noted. Heart size is normal. Ventricular myocardium is hyperdense as compared to blood within the ventricles, background body wall edema is noted. Liver, spleen, gallbladder, pancreas, adrenals and kidneys otherwise demonstrate no acute abnormality. An upper pole left renal cyst measures 2.1 x 2.5 cm. [address] is suggested. CT PELVIS: There are multiple noncalcified, nonenlarged and mildly enlarged bilateral inguinal nodes identified. On the last image of the study a left inguinal node for example has short axis measurement of 17 mm. Right inguinal node has short axis measurement of 15 mm. Small volume of abdominal and pelvic ascites noted. Urinary bladder and seminal vesicles appear unremarkable. Prostate is mildly enlarged. Significant retention of stool in the distribution of the colon more so than rectum noted. Overall bowel pattern does not appear to be obstructive. Multilevel thoracic and lumbar Schmorl's node formation noted. Facet arthritic changes from L3 through L5 levels with degenerative changes of the lumbar spine most apparent at L5/S1 level again noted. No acute osseous abnormality suspected. CT/CT abdomen pelvis wo con IMPRESSION: 1. Acute interstitial edema pattern at the lung bases with small bilateral pleural effusions and moderate background diffuse body wall edema. Small volume of abdominal and pelvic ascites. 2. Negative for urolithiasis, appendicitis or diverticulitis. 3. Small upper pole left renal cyst. 4. Constipation. 5. Mild prostatomegaly. Multiple small reactive bilateral inguinal nodes are identified. No significantly enlarged intra-abdominal or intrapelvic nodes are otherwise suggested. Electronically authenticated by: ARLEEN HYATT Date: 11/05/2024 12:54
[2024-11-05 12:32] LABS: Glucometer 103 mg/dL (74-106)
--- NOTE | 2024-11-05 14:02 | SWNOTE1 ---
SW reviewed physical therapy note and pt had a recent dc from [facility]. Pt did well with physical therapy and no anticipated discharge needs at this time. SW to follow as needed.
[2024-11-05 16:10] LABS: Glucometer 110 mg/dL (74-106)
[2024-11-05 16:22] LABS: Anion Gap 16.1; BUN Creatinine Ratio 21.4; Calcium 8.7 mg/dL (8.5-10.1); Carbon Dioxide 21.4 mmol/L (21.0-32.0); Chloride 108 mmol/L (98-107); Estimated GFR (African America 34 (>=60 mL/min/1.73m^2); Estimated GFR (Non-African Ame 28 (>=60 mL/min/1.73m^2); Glucose 101 mg/dL (74-106); Potassium 5.5 mmol/L (3.5-5.1); Sodium 140 mmol/L (136-145)
[2024-11-05 22:00] LABS: Glucometer 197 mg/dL (74-106)
[2024-11-05] MEDS: INSULIN GLARGINE 300 UNIT/3 ML INSULN.PEN 24 UNIT SQ (22:05)
[2024-11-05] MEDS: INSULIN ASPART 300 UNIT/3 ML PEN SUBQ (22:05)
[2024-11-06] VITALS (23 sets, daily range): BP systolic 140–194; BP diastolic 72–103; PULSE 65–90; TEMP 36.3–37.2; O2SAT 92–96
[2024-11-06 06:09] LABS: Basophils Absolute Auto 0.1 10^3/uL (0.0-0.1); Basophils Percent Auto 0.7 % (0.2-2.0); Eosinophils Absolute Auto 0.1 10^3/uL (0.0-0.7); Eosinophils Percent Auto 1.9 % (0.9-7.0); Hematocrit 24.9 % (42.0-54.0); Hemoglobin 8.3 g/dL (14.0-18.0); Immature Granulocytes Abs Auto 0.02 10^3/uL (0.00-0.03); Immature Granulocytes Pct Auto 0.3 % (0.0-0.5); Lymphocytes Absolute Auto 0.8 10^3/uL (1.2-3.8); Lymphocytes Percent Auto 12.3 % (20.5-60.0); Mean Corpuscular HGB Conc 33.3 g/dL (29.9-35.2); Mean Corpuscular Hemoglobin 29.2 pg (25.9-34.0); Mean Corpuscular Volume 87.7 fL (80.0-94.0); Mean Platelet Volume 9.5 fL (9.5-13.5); Monocytes Absolute Auto 0.5 10^3/uL (0.3-0.8); Monocytes Percent Auto 7.7 % (1.7-12.0); Neutrophils Absolute Auto 5.2 10^3/uL (1.4-6.5); Neutrophils Percent Auto 77.1 % (43.0-75.0); Platelet Count 216 10^3/uL (150-450); Red Blood Count 2.84 10^6/uL (4.70-6.10); Red Cell Distribution Width 13.6 % (11.0-15.0); White Blood Count 6.7 10^3/uL (4.0-11.0)
[2024-11-06] MEDS: HYDRALAZINE HCL 20 MG/ML VIAL 10 MG IVP (06:11)
[2024-11-06 06:24] LABS: Alanine Aminotransferase 25 U/L (16-63); Albumin Globulin Ratio 0.9; Alkaline Phosphatase 107 U/L (46-116); Anion Gap 11.5; Aspartate Amino Transferase 17 U/L (15-37); BUN Creatinine Ratio 21.4; Bilirubin Total 0.2 mg/dL (0.2-1.0); Calcium 8.7 mg/dL (8.5-10.1); Carbon Dioxide 27.5 mmol/L (21.0-32.0); Chloride 106 mmol/L (98-107); Estimated GFR (African America 34 (>=60 mL/min/1.73m^2); Estimated GFR (Non-African Ame 28 (>=60 mL/min/1.73m^2); Globulin 3.4 g/dL; Glucose 240 mg/dL (74-106); Magnesium 1.7 mg/dL (1.8-2.4); Sodium 140 mmol/L (136-145); Total Protein 6.4 g/dL (6.4-8.2)
--- NOTE | 2024-11-06 07:54 | P.PN_ITS ---
Progress Note: Subjective Subjective Interval history: Legs do feel better with good diuresis yesterday, still with tightness in the legs Exam Constitutional Vital Signs, click to edit/add: Last Vital Signs Temp 97.8 F 11/06/24 05:00 Pulse 88 11/06/24 07:49 Resp 17 11/06/24 05:00 BP 169/91 H 11/06/24 06:27 Pulse Ox 92 L 11/06/24 05:09 O2 Del Method Room Air 11/06/24 05:09 Documenting provider has reviewed patient's vital signs: yes Common normals: no apparent distress Chest Common normals: inspection of chest normal Respiratory Common normals: normal respiratory effort and no retractions Cardio Common normals: regular rate and regular rhythm GI Common normals: Normal to inspection, nondistended, normoactive bowel sounds present, soft to palpation and non-tender Scrotum: edematous Extremity Common normals: abnormal to inspection (3+ edema) Progress Note: Objective Labs Labs: Short CBC 11/06/24 Range/Units 06:00 WBC 6.7 (4.0-11.0) 10^3/uL Hgb 8.3 L (14.0-18.0) g/dL Hct 24.9 L (42.0-54.0) % Plt Count 216 (150-450) 10^3/uL BMP 11/05/24 11/06/24 16:04 06:00 Sodium 140 140 Potassium 5.5 H 5.0 Chloride 108 H 106 Carbon Dioxide 21.4 27.5 BUN 52.0 H 53.0 H Creatinine 2.43 H 2.48 H Glucose 101 240 H Calcium 8.7 8.7 Liver Function 11/06/24 Range/Units 06:00 Total Bilirubin 0.2 (0.2-1.0) mg/dL AST 17 (15-37) U/L ALT 25 (16-63) U/L Alkaline Phosphatase 107 (46-116) U/L Albumin 3.0 L (3.4-5.0) g/dL Progress Note: A&P Assessment and Plan (1) Hypoalbuminemia: (2) Hypertension: (3) Acute hyperkalemia: (4) Acute kidney injury: (5) Anasarca: (6) Type 2 diabetes mellitus with hyperglycemia: (7) Benign essential hypertension: (8) Uncontrolled hypertension: Plan Admission findings: Uncontrolled hypertension, severe hyperkalemia, with a potassium of 6.8, acute kidney injury as a baseline creatinine of 1.68, admission creatinine of 2.6 today which is 159.5% above baseline with decreased urine output would make his stage I, patient admitted to ICU secondary to the severe hyperkalemia and anasarca Anasarca with acute kidney injury as outlined [id number] strep yesterday, still has some significant fluid retention, repeat Bumex drip again today, creatinine remained essentially stable from previous day Anemia of chronic kidney disease stage II-hemoglobin up somewhat today Chronic kidney disease stage II at baseline-currently is stage III with acute kidney injury secondary to the above, need to maintain plan for diuretics though through today to get rid of fluid Hyperkalemia on admission-resolved Diabetes mellitus-Home insulin plus insulin sliding scale Seizure disorder-continue with home medications Hypertension-uncontrolled,-still elevated at times, adjust medications, or staying off the losartan secondary to the hyperkalemia and staying off the amlodipine secondary to the edema, increased hydralazine today, added clonidine trying to keep to twice daily dosing for better outpatient control Hypercholesterolemia continue with home medications Hypomagnesemia-supplement Admission status: Patient with acute kidney injury stage I and acute severe hyperkalemia, admitted to the ICU, medically necessary treatment will span 2 midnights. Inpatient status ?
[2024-11-06] MEDS: ASPIRIN 81 MG TAB.CHEW PO (09:04)
[2024-11-06] MEDS: CARVEDILOL 25 MG TABLET PO ×2 (09:04→21:33)
[2024-11-06] MEDS: MAGNESIUM OXIDE 400 MG TABLET PO ×2 (09:04→21:34)
[2024-11-06] MEDS: LEVETIRACETAM 500 MG TABLET 1000 MG PO ×2 (09:05→21:34)
[2024-11-06] MEDS: CLONIDINE HCL 0.1 MG TABLET PO ×2 (09:05→21:33)
[2024-11-06] MEDS: HYDRALAZINE HCL 50 MG TABLET 100 MG PO ×2 (09:05→21:34)
[2024-11-06] MEDS: PANTOPRAZOLE SODIUM 40 MG VIAL IV (09:05)
[2024-11-06] MEDS: ATORVASTATIN CALCIUM 40 MG TABLET PO (09:06)
[2024-11-06] MEDS: BUMETANIDE 10 MG in 0.9 % SODIUM CHLORIDE 160 ML IV (09:06)
[2024-11-06 11:09] LABS: Glucometer 274 mg/dL (74-106)
[2024-11-06] MEDS: INSULIN ASPART 300 UNIT/3 ML PEN SUBQ ×3 (11:10→21:40)
[2024-11-06 15:59] LABS: Glucometer 222 mg/dL (74-106)
[2024-11-06 19:50] LABS: Glucometer 186 mg/dL (74-106)
[2024-11-06] MEDS: INSULIN GLARGINE 300 UNIT/3 ML INSULN.PEN 24 UNIT SQ (21:39)
[2024-11-07] VITALS (7 sets, daily range): BP systolic 129–161; BP diastolic 58–78; PULSE 74–79; TEMP 36.6–37.1; O2SAT 90–94
[2024-11-07 06:36] LABS: Basophils Percent Auto 0.7 % (0.2-2.0); Eosinophils Absolute Auto 0.1 10^3/uL (0.0-0.7); Eosinophils Percent Auto 2.2 % (0.9-7.0); Immature Granulocytes Abs Auto 0.01 10^3/uL (0.00-0.03); Immature Granulocytes Pct Auto 0.2 % (0.0-0.5); Lymphocytes Absolute Auto 0.9 10^3/uL (1.2-3.8); Lymphocytes Percent Auto 14.7 % (20.5-60.0); Mean Corpuscular HGB Conc 34.3 g/dL (29.9-35.2); Mean Corpuscular Hemoglobin 29.6 pg (25.9-34.0); Mean Corpuscular Volume 86.3 fL (80.0-94.0); Mean Platelet Volume 9.6 fL (9.5-13.5); Monocytes Absolute Auto 0.6 10^3/uL (0.3-0.8); Monocytes Percent Auto 10.1 % (1.7-12.0); Neutrophils Absolute Auto 4.2 10^3/uL (1.4-6.5); Neutrophils Percent Auto 72.1 % (43.0-75.0); Platelet Count 214 10^3/uL (150-450); Red Cell Distribution Width 13.7 % (11.0-15.0); White Blood Count 5.9 10^3/uL (4.0-11.0)
[2024-11-07 06:45] LABS: Hematocrit 23.3 % (42.0-54.0)
[2024-11-07 06:49] LABS: Anion Gap 11.3; BUN Creatinine Ratio 20.9; Calcium 8.3 mg/dL (8.5-10.1); Carbon Dioxide 31.8 mmol/L (21.0-32.0); Chloride 105 mmol/L (98-107); Estimated GFR (African America 32 (>=60 mL/min/1.73m^2); Estimated GFR (Non-African Ame 26 (>=60 mL/min/1.73m^2); Glucose 94 mg/dL (74-106); Potassium 4.1 mmol/L (3.5-5.1); Sodium 144 mmol/L (136-145)
--- NOTE | 2024-11-07 07:43 | P.DS_ITS ---
DS: Providers Provider Date of admission: 11/04/24 23:15 Primary care physician: Vincent Martinez MD Consults: 11/05/24 07:46 Physical Therapy Eval and Treat Routine Reason for consultation: Eval and Treat [email or web address] Has provider been notified: No DS: Diagnosis Discharge Diagnosis (1) Hypoalbuminemia: (2) Hypertension: (3) Acute hyperkalemia: (4) Acute kidney injury: (5) Anasarca: (6) Type 2 diabetes mellitus with hyperglycemia: (7) Benign essential hypertension: (8) Uncontrolled hypertension: Plan Admission findings: Uncontrolled hypertension, severe hyperkalemia, with a potassium of 6.8, acute kidney injury as a baseline creatinine of 1.68, admission creatinine of 2.6 today which is 159.5% above baseline with decreased urine output would make his stage I, patient admitted to ICU secondary to the severe hyperkalemia and anasarca Anasarca with acute kidney injury as outlined above-much improved from admission Anemia of chronic kidney disease stage II-deteriorated from admission Chronic kidney disease stage II at baseline-deteriorated from admission Hyperkalemia on admission-resolved Diabetes mellitus-Home insulin plus insulin sliding scale Seizure disorder-continue with home medications Hypertension-uncontrolled, elevated at discharge Hypercholesterolemia continue with home medications Hypomagnesemia-supplement Admission status: Patient with acute kidney injury stage I and acute severe hyperkalemia, admitted to the ICU, medically necessary treatment will span 2 midnights. Inpatient status DS: Summary Hospital Course Hospital Course: Patient was admitted, I had seen him in the office about 4 to 5 days earlier started on higher dose Lasix and Aldactone due to peripheral edema while workup ensued, he had scheduled ultrasounds plan for the day after he ended up getting admitted, presented emergency room just with inability to walk secondary to swelling, oral medications of Lasix and Aldactone not effective, patient found to have a acute kidney injury stage I and severe hyperkalemia requiring intervention, patient was placed in the intensive care unit, given 1 dose of Lasix with minimal output, patient was placed on Bumex drip on 3 occasions, he did have an elevation in his BUN and creatinine but we were able to diurese a total of 13 L with a net of 10 L fluid diuresed. Echocardiogram was unremarkable other than hypertensive changes, CT scan of abdomen pelvis was done to rule out obstruction causing peripheral edema, that was negative, at this point he can ambulate now has only 1+ edema and I will follow-up with him in the office in 2 days and continue workup. Time Spent with Patient Time attestation: Total time spent providing and/or coordinating discharge services: Exam Constitutional Vital Signs, click to edit/add: Last Vital Signs Temp 98.4 F 11/07/24 04:00 Pulse 75 11/07/24 06:00 Resp 18 11/07/24 04:00 BP 157/78 H 11/07/24 04:00 Pulse Ox 94 L 11/07/24 04:00 O2 Del Method Room Air 11/07/24 04:00 Common normals: no apparent distress Chest Common normals: inspection of chest normal and palpation of chest normal Respiratory Common normals: normal respiratory effort and no retractions Cardio Common normals: regular rate and regular rhythm Extremity Common normals: abnormal to inspection (1+ edema much improved) DS: Data Data Completed and Pending Labs on day of discharge: Labs from last 24 hours 11/07/24 11/06/24 11/06/24 06:20 19:49 15:58 WBC 5.9 RBC 2.70 L Hgb 8.0 L Hct 23.3 L* MCV 86.3 MCH 29.6 MCHC 34.3 RDW 13.7 Plt Count 214 MPV 9.6 Neut % (Auto) 72.1 Lymph % (Auto) 14.7 L [place] % (Auto) 10.1 Eos % (Auto) 2.2 Baso % (Auto) 0.7 Neut # (Auto) 4.2 Lymph # (Auto) 0.9 L [place] # (Auto) 0.6 Eos # (Auto) 0.1 Baso # (Auto) 0.0 Abs Immat Gran (auto) 0.01 Imm/Tot Granulo (auto) 0.2 Sodium 144 Potassium 4.1 Chloride 105 Carbon Dioxide 31.8 Anion Gap 11.3 BUN 54.0 H Creatinine 2.58 H Est GFR ( Amer) 32 L Est GFR (Non-Af Amer) 26 L BUN/Creatinine Ratio 20.9 Glucose 94 Calcium 8.3 L POC Glucose 186 H 222 H 11/06/24 11:08 WBC RBC Hgb Hct MCV MCH MCHC RDW Plt Count MPV Neut % (Auto) Lymph % (Auto) [place] % (Auto) Eos % (Auto) Baso % (Auto) Neut # (Auto) Lymph # (Auto) [place] # (Auto) Eos # (Auto) Baso # (Auto) Abs Immat Gran (auto) Imm/Tot Granulo (auto) Sodium Potassium Chloride Carbon Dioxide Anion Gap BUN Creatinine Est GFR ( Amer) Est GFR (Non-Af Amer) BUN/Creatinine Ratio Glucose Calcium POC Glucose 274 H Discharge Plan Discharge Disposition: Home, Self-Care Condition: Serious Discharge Medications: New clonidine HCl 0.1 mg Tablet 0.1 mg PO BID Qty: 60 11RF magnesium oxide 400 mg (241.3 mg magnesium) Tablet 400 mg PO BID Qty: 60 11RF hydralazine 100 mg tablet 100 mg PO BID Qty: 60 11RF bumetanide 1 mg tablet 1 mg PO DAILY Qty: 30 11RF clonidine HCl 0.1 mg tablet 0.1 mg PO Q12H Qty: 60 11RF magnesium oxide 400 mg magnesium capsule 400 mg PO BID Qty: 60 11RF hydralazine 100 mg tablet 100 mg PO BID Qty: 60 11RF bumetanide 1 mg tablet 1 mg PO DAILY Qty: 60 11RF Continued (DME) pen needle, diabetic [Easy Comfort Pen [place]] 31 gauge x 5/16 needle MISCELLANEOUS (DME) Dexcom G6 Sensor Device MISCELLANEOUS (DME) Dexcom G6 Vp Patient Misc MISCELLANEOUS (DME) Dexcom G6 Transmitter Device MISCELLANEOUS aspirin 81 mg tablet,chewable 1 tab PO DAILY atorvastatin 40 mg tablet 40 mg PO DAILY carvedilol 25 mg tablet 25 mg PO BID insulin glargine [Lantus Solostar U-100 Insulin] 100 unit/mL (3 mL) insulin pen 24 unit SUBCUT QPM insulin lispro [Humalog KwikPen Insulin] 100 unit/mL insulin pen 1 sliding scale dose SUBCUT TID levetiracetam 500 mg tablet 1,000 mg PO BID Discontinued lisinopril 20 mg tablet 20 mg PO DAILY Patient Comments: only on 20mg metoprolol tartrate 50 mg tablet 50 mg PO Q12H amlodipine 10 mg tablet 10 mg PO DAILY hydralazine 50 mg tablet 50 mg PO BID losartan 50 mg tablet 50 mg PO DAILY Print Language: [place] Forms: Portal Instructions
[2024-11-07] MEDS: CARVEDILOL 25 MG TABLET PO (08:43)
[2024-11-07] MEDS: CLONIDINE HCL 0.1 MG TABLET PO (08:43)
[2024-11-07] MEDS: ASPIRIN 81 MG TAB.CHEW PO (08:43)
[2024-11-07] MEDS: MAGNESIUM OXIDE 400 MG TABLET PO (08:43)
[2024-11-07] MEDS: HYDRALAZINE HCL 50 MG TABLET 100 MG PO (08:43)
[2024-11-07] MEDS: LEVETIRACETAM 500 MG TABLET 1000 MG PO (08:43)
[2024-11-07] MEDS: ATORVASTATIN CALCIUM 40 MG TABLET PO (08:43)
[2024-11-07] MEDS: PANTOPRAZOLE SODIUM 40 MG VIAL IV (08:43)
--- NOTE | 2024-11-08 13:49 | CM.DCFOLLOWU ---
Person spoke with: Ortiz How are you feeling? Good How is your pain? No pain Did you understand your discharge instructions? Yes Do you have any questions about your discharge instructions? No Were you given any prescriptions at discharge? Yes Were you able to get your prescriptions filled? Yes Do you understand how to take your medications as ordered? Yes Do you have any questions about your follow up appointment and do you plan to keep your follow up appointment? No its scheduled for tomorrow Is there anything else that you would like to discuss? No Questions/Comments/Concerns/Other:
== END 2024-11-07 10:07 | disposition home or self-care (01) | DRG 425 ==
LOC: ER 23:32 → ICU 11-05 00:06 → MS 11-05 21:10
PROVIDERS: Personal Emergency Response Attendant; Registered Nurse; Admitting Provider Family Medicine; Emergency Provider Emergency Medicine; PCP Family Medicine; Visit Provider Family Medicine
DX: E87.5 Hyperkalemia (principal); N17.9 Acute kidney failure, unspecified; R60.1 Generalized edema; D63.1 Anemia in chronic kidney disease; N18.2 Chronic kidney disease, stage 2 (mild); E11.22 Type 2 diabetes mellitus with diabetic chronic kidney disease; G40.909 Epilepsy, unspecified, not intractable, without status epilepticus; I12.9 Hypertensive chronic kidney disease with stage 1 through stage 4 chronic kidney disease, or unspecified chronic kidney disease; E78.00 Pure hypercholesterolemia, unspecified; E88.09 Other disorders of plasma-protein metabolism, not elsewhere classified; F17.220 Nicotine dependence, chewing tobacco, uncomplicated; Z79.82 Long term (current) use of aspirin; Z79.4 Long term (current) use of insulin; E11.65 Type 2 diabetes mellitus with hyperglycemia; E83.42 Hypomagnesemia
CPT/HCPCS: 36415; 71045; 74176; 80048; 80053; 81001; 82948; 83690; 83735; 83880; 84132; 84484; 85025; 85610; 85730; 86850; 86900; 86901; 93005; 93306; 93970; 94640; 94761; 96374; 96375; 97161; 99285; G0328; J0360; J0612; J1940; Q9966

== ENCOUNTER 2024-11-30 10:37 | Outpatient (OUT) | payer OTHER, SELFPAY ==
--- NOTE | 2024-11-30 10:39 | US_ITS ---
[address] [address] Patient Name: JOSÉ LUIS GORMAN MRN: [id number] date: 1975 Sex: M Assigned Patient Location: Current Patient Location: Accession/Order Number: [id number] Exam Date: 11/30/2024 10:40 Report Date: 12/01/2024 08:40 At the request of: PAULINA WINTERS Procedure: US renal bladder EXAMINATION: US renal bladder HISTORY: Kidney Function Test Abnormality COMPARISON: No relevant comparison available. TECHNIQUE: Ultrasound examination was performed of the bladder. FINDINGS: Right Kidney: Normal in size and contour. Diffuse increase in cortical echotexture. The cortex measures 0.9 cm. 1.3 cm cortical cyst. No solid cortical mass, hydronephrosis or obstructing nephrolithiasis Height: 5.65 cm Length: 9.34 cm Width: 6.51 cm Left Kidney: Normal in size and contour. Diffuse increase in cortical echotexture. The cortex measures 0.9 cm. 2.1 cm cortical cyst. No solid cortical mass, hydronephrosis or obstructing nephrolithiasis Height: 6.21 cm Length: 10.38 cm Width: 6.71 cm Urinary bladder: Prevoid volume 109 mL. Post void volume 72 mL Ureteral jets: Visualized bilaterally US/US renal bladder IMPRESSION: Increased renal cortical echotexture suggesting medical renal disease Post void bladder residual 72 mL. Electronically authenticated by: RAMIRO BURNETT Date: 12/01/2024 08:40
== END 2024-11-30 10:38 | disposition home or self-care (01) ==
LOC: US 10:37
PROVIDERS: PCP Family Medicine; Visit Provider Family Medicine
DX: R94.4 Abnormal results of kidney function studies (principal)
CPT/HCPCS: 76770

== ENCOUNTER 2024-12-07 11:07 | Outpatient (OUT) | payer OTHER, SELFPAY | END 2024-12-07 11:08 | disposition home or self-care (01) | LOC: LAB 11:08 | PROVIDERS: PCP Family Medicine; Visit Provider Family Medicine | DX: R56.9 Unspecified convulsions (principal); E11.9 Type 2 diabetes mellitus without complications | CPT/HCPCS: 36415; 80177 ==

== ENCOUNTER 2024-12-18 13:58 | Outpatient (OUT) | payer OTHER, SELFPAY ==
[2024-12-20 14:08] LABS: Levetiracetam (Keppra), S 26.4 ug/mL (10.0-40.0)
== END 2024-12-18 13:59 | disposition home or self-care (01) ==
LOC: LAB 14:00
PROVIDERS: PCP Family Medicine; Visit Provider Family Medicine
DX: Z79.899 Other long term (current) drug therapy (principal)
CPT/HCPCS: 36415; 80177

== ENCOUNTER 2025-01-14 22:56 | Inpatient (IN) | payer OTHER, SELFPAY ==
[2025-01-14] VITALS (7 sets, daily range): BP systolic 126–144; BP diastolic 74–80; PULSE 82–85; TEMP 38.8; O2SAT 92–95; BMI 25.1
--- OUTSIDE RECORDS SUMMARY | 2025-01-14 23:06 | XMS_ITS | CCD ---
Author Organization [facility] CliniSyoh Care Team Providers Care Trade Marker Name Role Phone Vincent Winters MD Primary Care Provider [phone] SINGH ., DR GALLARDO Attending Unavailable HOY [...] GALLARDO Attending Unavailable HOY ., DR GALLARDO Admmichell Unavailable HOY ., DR GALLARDO Primary Care Unavailable NERINX, DR RAMIRO Cramer Consulting Unavailable HOY ., [...] Consulting Unavailable JACQUELINE PACHECO Consulting Unavailable SANG, BONNRE H Consulting Unavailable DAMIAN CONTRERAS Consulting Unavailable JAILENE ., EVELINE FITZGERALD Consulting Unavailable SISTER, JUSTIN Consulting Unavailable GEMBUS, LUDMILA Consulting Unavailable SINGH ., DR GALLARDO Attending Unavailable SINGH ., DR GALLARDO Primary Care Unavailable SINGH ., DR GALLARDO Admitting Unavailable Stefan FRIAS, Jarod Orantes Attending UnavailVincent Hemphill MD Primary Care Unavaildamien FRIAS, Jarod Orantes Attending Unavailab Vincent Clark MD Primary Care Unavaildamien FRIAS, Jarod Orantes Attending UnavailVincent Hemphill MD Primary Care UnavailVincent Erickson MD Primary Care Provider [phone] VINCENT WINTERS Referring Unavailable VINCENT WINTERS Primary Care Unavailable Vincent Winters MD Primary Care Provider [phone] Vincent Winters MD Primary Care Provider [phone] Vincent Winters Primary Care Physician [phone] CONSULT, NEUROLOGY Consulting Unavailable KARL BIRD Attending Unavailkeren e MARGE, SATYASAGAR Admitting Unavailabl e VINCENT WINTERS Primary Care Unavailable Felix LUKE Attending Unavailable Vincent Winters Referring Unavailable VINCENT WINTERS Primary Care Unavailable CINTRA, RASHAD G Referring Unavailable BRAYAN, STANLEY Admitting Unavailable RHODA LUNA Attending Unavailable CHIRRI, ADDY Consulting Unavailable RAMY SANCHEZ Consulting Unavailable ALI, CHRISTOPHER VIVIAN Consulting Unavailable AVASTHI, TRINO Attending Unavailable AVASTHI, TRINO Admitting Unavailable NATALIE, STEVE Referring Unavailable SULROSAURA-SAMMIE CALIX Consulting Unavailable VINCENT WINTERS Primary Care Unavailable CHIRRI, ADDY Consulting Unavailable AOUARUDY Orantes T Consulting Unavailable SATURNINO GOVEA Consulting Unavaila ble VINCENT WINTERS Referring Unavailable VINCENT WINTERS Primary Care Unavailable VINCENT WINTERS Primary Care Unavailable RASHAD CHAVEZ Attending Unavailable VINCENT WINTERS Primary Care Unavailable STEVE ALVARADO Attending Unavailable RHODA LUNA Referring Unavailable VINCENT WINTERS Primary Care Unavailable Allergies Allergy Classification Reported Allergen(s) Allergy Type Date of Onset Reaction(s) Facility (2 sources) No Known Medication Allergies; Translations: [No Known Medication Allergies] Propensity to adverse reactions to drug (disorder) [facility] Repository Medications Current Medications Medication Drug Class(es) Dates Sig (Normalized) Sig (Original) amLODIPine 10 mg oral tablet (6 sources) Dihydropyridine Calcium Channel Arlene Start: 10-06-2024 take 1 tablet by mouth once daily amLODIPine (NORVASC) 10 MG tablet Take 1 tablet by mouth daily 30 tablet 3 10/07/2024 Active Start: 09-30-2024 End: 10-05-2024 aspirin 81 mg chewable tablet (4 sources) Platelet Aggregation Inhibitor, Nonsteroidal Anti-inflammatory Drug Start: 09-28-2024 take 1 tablet by mouth once daily aspirin 81 MG chewable tablet Take 1 tablet by mouth daily 30 tablet 3 10/07/2024 Active atorvastatin 40 mg oral tablet (5 sources) HMG-CoA Reductase Inhibitor Start: 09-28-2024 take 1 tablet by mouth once daily atorvastatin (LIPITOR) 40 MG tablet Take 1 tablet by mouth nightly 30 tablet 3 10/06/2024 Active Start: 09-22-2023 End: 09-24-2023 take 10 mg by mouth once daily at bedtime 10 mg, Oral, DAILY AT BEDTIME, First dose on Roz 09/22/23 at 2100, Until Discontinued Blood Pressure KIT (2 sources) Start: 10-05-2024 Blood Pressure KIT Check your BP at least twice a day & record in a log to discuss with your PCP 1 kit 1 10/05/2024 Active bumetanide 1 mg oral tablet (1 source) Loop Diuretic Start: 11-07-2024 take 1 tablet by mouth once daily bumetanide (BUMEX) 1 MG tablet Take 1 tablet by mouth daily 11/07/2024 Active carvedilol 25 mg oral tablet (12 sources) alpha-Adrenergic Arlene, beta-Adrenergic Arlene Start: 10-06-2024 take 1 [...] to minimize the risk of orthostatic hypotension cloNIDine hydrochloride 0.1 mg oral tablet (1 source) Central alpha-2 Adrenergic Agonist Start: 11-07-2024 take 1 tablet by mouth twice daily cloNIDine (CATAPRES) 0.1 MG tablet Take 1 tablet by mouth 2 times daily 11/07/2024 Active Continuous Glucose Sensor (DEXCOM G6 SENSOR) MISC (1 source) Start: 10-08-2024 Continuous Glucose Sensor (DEXCOM G6 SENSOR) MISC USE DIRECTED EVERY 10 DAYS 10/08/2024 Active fentaNYL (SUBLIMAZE) 1,000 mcg in sodium chloride [...] boluses or administration of glucagon, Starting on Tue01/19/24 at 0410 If blood glucose fails to [...] (3 times per day), First dose on Tue01/19/24 at 0600, Until Discontinued hydrALAZINE hydrochloride 100 mg oral tablet (4 sources) Arteriolar Vasodilator Start: 11-07-2024 hydrALAZINE (APRESOLINE) 100 MG tablet 11/07/2024 Active Start: 09-28-2024 End: 09-29-2024 Start: 09-23-2023 End: 09-24-2023 take 20 mg intravenously every four hours as needed hydrALAZINE (APRESOLINE) injection 20 mg 3 ml insulin glargine 100 unt/ml pen injector (16 sources) Insulin Analog Start: 10-06-2024 insulin glargi [...] insulin lispro 100 unt/ml in jectable solution (16 sources) Insulin Analog Start: 01-22-2024 End: 10-06-2024 [...] 0923, Until Tue09/28/24 at 0957, Simona Kirk: cabinet override, HakeemSimona to: cabinet override Start: 01-21-2024 End: 01-21-2024 10 [...] 20 mg levETIRAcetam 500 mg oral tablet (7 sources) Start: 10-06-2024 End: 10-01-2025 take 2 [...] mg losartan potassium 50 mg oral tablet (6 sources) Angiotensin 2 Receptor Arlene Start: 10-07-2024 take 1 tablet by mouth once daily losartan (COZAAR) 50 MG tablet Take 1 tablet by mouth daily 30 tablet 3 10/07/2024 Active Start: 10-02-2024 End: 10-04-2024 magnesium oxide 400 mg oral tablet (1 source) Start: 12-06-2024 take 1 tablet by mouth once daily magnesium oxide (MAG-OX) 400 (240 Mg) MG tablet Take 1 tablet by mouth daily 12/06/2024 Active miconazole nitrate 0.02 mg/mg topical powder (1 source) Azole Antifungal Start: 10-02-2024 niCARdipine (CARDENE) 25 mg in sodium chloride 0.9 % 250 mL infusion ([id number]) (2 sources) Start: 09-28-2024 2.5-15 mg/hr (25-150 mL/hr), IntraVENous, CONTINUOUS, Starting [...] used to maintain goal. Use 20mm (Blue) [id number] Adapter Preparation instructions: Attach medication vial to one 20mm (Blue) [id number] adapter. Darvin fluid bag with adapter, mix, and administer per order. Start: 01-19-2024 niCARdipine (C ARDENE) 25 mg in sodium chloride 0.9 % 250 mL infusion ([id number]) polyethylene glycol 3350 170 00 mg powder [...] Minutes, PRN, Phosphate IV Replacement, Starting on Orz 01/19/24 at 0827 Phos level Replacement Action [...] Summary: 10 mEq, IntraVENous, PRN, Starting on Roz [...] (total volume) IVPB 20 ml albumin human, group home 250 mg/ml injection (1 source) Human Serum [...] 1140, Until Tue09/28/24 at 1143, Brittney Cortez: adrian ascencio, Brittney Cortez: loreninet override Start: 01-19-2024 End: 01-19-2024 LORazepam (ATIVAN) [...] 1306 SAMANTA CHRISTINA: loreninet override SAMANTA CHRISTINA: loreninet override Start: 09-21-2023 End: 09-21-2023 Midazolam HCl [...] Oral, DAILY BEFORE BREAKFAST, First dose on Tue01/22/24 at 0700, Until Discontinued Do not crush [...] to 2.7-26.6 mL/hr), IntraVENous, CONTINUOUS, Starting on Rzo 01/19/24 at 1330, Until Tue01/20/24 at 1722 [...] dose on Roz 01/19/24 at 0900, Until Discontinued For Line Patency: [...] Date Episodic/Chronic Acute and unspecified renal failure (7 sources) Acute renal failure syndrome; Translations: [Acute kidney failure, unspecified] Onset: 09-28-2024 09-28-2024 Episodic Acute cerebrovascular disease (8 sources) Cerebrovascular accident; Translations: [Cerebral infarction, unspecified] Onset: 10-05-2024 02-22-2024 Chronic Acute myocardial infarction (7 sources) Myocardial infarction; Translations: [Non-ST elevation (NSTEMI) myocardial infarction] Onset: 01-19-2024 01-19-2024 Chronic Bacterial infection; unspecified site (10 sources) Bacteremia due to Staphylococcus aureus; Translations: [Bacteremia] Onset: 10-25-2022 11-02-2021 Episodic Cardiac dysrhythmias (2 sources) Paroxysmal atrial fibrillation; Translations: [Paroxysmal atrial fibrillation] Onset: 09-28-2024 10-05-2024 Chronic Cardiac dysrhythmias (9 sources) Sinus tachycardia; Translations: [Tachycardia, unspecified] 10-30-2021 Episodic Chronic kidney disease (7 sources) Chronic kidney disease stage 3; Translations: [...] hyperglyceridemia] Onset: 01-03-2023 02-22-2024 Chronic Epilepsy; convulsions (5 sources) Seizure; Translations: [Unspecified convulsions] Onset: 10-04-2024 10-04-2024 Episodic Essential hypertension (8 sources) Essential hypertension; Translations: [Essential (primary) hypertension] Onset: 01-03-2023 Chronic Headache; including migraine (2 sources) Acute headache; Translations: [Acute nonintractable headache, unspecified headache type] Episodic Hypertension with complications and secondary hypertension (20 sources) Hypertensive emergency; Translations: [Hypertensive emergency] Onset: 09-21-2023 09-21-2023 Chronic Nutritional deficiencies (9 sources) Undernutrition; Translations: [Mild protein-calorie malnutrition] Onset: 10-28-2021 10-28-2021 Chronic Other aftercare (1 source) intermediate project manager (current) use of insulin; Translations: [CONVEYOR OPERATOR CURRENT USE OF INSULIN] Onset: 12-30-2022 Episodic Other aftercare (3 sources) Other long term care phlebotomist (current) drug therapy; Translations: [OTH CONVEYOR OPERATOR CURRENT DRUG THERAPY] Onset: 12-30-2022 Episodic Other circulatory disease (1 source) Elevated blood pressure; Translations: [Elevated blood-pressure reading, without diagnosis of hypertension] Episodic Other diseases of kidney and ureters (2 sources) Renal impairment; Translations: [Disorder of kidney and ureter, unspecified] Onset: 09-22-2023 09-22-2023 Episodic Other nervous system disorders (7 sources) Disorder of brain; Translations: [Encephalopathy, unspecified] Onset: 01-19-2024 01-19-2024 Chronic Other nervous system disorders (5 sources) Metabolic encephalopathy; Translations: [Metabolic encephalopathy] Onset: 01-19-2024 10-05-2024 Chronic Other nervous system disorders (3 sources) Dysarthria and anarthria; Translations: [DYSARTHRIA AND ANARTHRIA] Onset: 12-27-2022 Episodic Other screening for suspected conditions (not mental disorders or infectious disease) (14 sources) Magnetic resonance imaging of brain abnormal; [...] 09-28-2024 Episodic Respiratory failure; insufficiency; arrest (adult) (11 sources) Acute respiratory failure; Translations: [Acute respiratory [...] Onset: 03-24-2022 Episodic Fever of unknown origin (7 sources) Fever; Translations: [Fever, unspecified] Onset: 01-19-2024 01-19-2024 Episodic Fluid and electrolyte disorders (7 sources) Lactic acidosis; Translations: [Lactic acidosis] Onset: [...] Onset: 09-24-2022 Episodic Other lower respiratory disease (8 sources) Apnea; Translations: [Apnea, not elsewhere classified] [...] MELLITUS] Onset: 10-25-2022 Episodic Residual codes; unclassified (9 sources) Altered mental status; Translations: [Altered mental status, unspecified] Onset: 01-19-2024 09-21-2023 Episodic Residual codes; unclassified (3 sources) Altered mental status, unspecified; Translations: [Altered mental status, unspecified] Onset: 09-21-2023 Episodic Unclassified (1 source) CONTACT W/AND (SUSP) EXPOS COVID-19; Translations: [CONTACT W/AND (SUSP) EXPOS COVID-19] Onset: 06-01-2022 Results Test Name Value Interpretation [facility]FOR[facility] AT [facility] so[facility] Comment on above: Result Comment: (NOT [...] and its performancecharacteristics determined by [facility] in a mannerconsistent with CLIA requirements. This test has not beencleared or approved by the U.S. Food and DrugAdministration.+ +: PERFORMING SITE LEGEND :+ +: MCR : [facility] :: : [address] [place] [address] :+ +Re ceived and reported dates and times are reported in USCentral Time. Performed By: #### C MIS1 ####[address] [place] [address] lab Director: Ramiro Mark MD Basic Metabolic Panelon 12-2 Anion gap [Moles/Vol] 8 mmol/L Low 9 - 16 mmol/L [facility] Calcium [Mass/Vol] 8.2 mg/dL Low 8.6 - 10. 4 mg/dL [facility] Chloride [Moles/Vol] 106 mmol/L 98 - 10 7 mmol/L [facility] CO2 [Moles/Vol] 23 mmol/L 20 - 31 mmol/L [facility] Creatinine [Mass/Vol] 2.0 mg/dL High 0.70 - 1.20 mg/dL [facility] Johnson Talbert Rate 41 Low - PINF [facility] Comment on above: These results are not [...] 166 mg/dL High 74 - 99 mg/dL [facility] Interpretation and review of laboratory results Abnormal [facility] Potassium [Moles/Vol] 5.8 mmol/L High 3.7 - 5.3 mmol/L [facility] Sodium [Moles/Vol] 137 mmol/L 136 - 145 mmol/L [facility] Urea nitrogen [Mass/Vol] 46 mg/dL High 6 - 20 mg/dL [facility] Urea nitrogen/Creatinine [Mass ratio] 23 mg/mg High 9 - 20 [facility] Basic Metabolic Profon 10-14 Anion gap [Moles/Vol] 8 mmol/L Low 9-16 [facility] Comment on above: Performed By: #### B MP #### [facility] [address] [place] [address] Comparator Operator: Ramiro Santillan MD BUN/CRE Ratio 23 High 9-20 [facility] Comment on above: Performed By: #### B MP #### [facility] [address] [place] [address] Comparator Operator: Ramiro Santillan MD Calcium [Mass/Vol] 8.2 mg/dL Low 8.6-10.4 [facility] Comment on above: Performed By: #### B MP #### [facility] [address] [place] [address] Comparator Operator: Ramiro Santillan MD Chloride [Moles/Vol] 106 mmol/L Normal 98-107 [facility] Comment on above: Performed By: #### B MP #### [facility] [address] [place] [address] Comparator Operator: Ramiro Santillan MD CO2 [Moles/Vol] 23 mmol/L Normal 20-31 [facility] Comment on above: Performed By: #### B MP #### [facility] [address] [place] [address] Comparator Operator: Ramiro Santillan MD Creatinine [Mass/Vol] 2.0 mg/dL High 0.70-1.20 [facility] Comment on above: Performed By: #### B MP #### [facility] [address] [place] [address] Comparator Operator: Ramiro Santillan MD GFR/1.73 sq M.predicted among non-blacks MDRD (S/P/Bld) [Vol rate/Area] 41 mL/min/{1.73_m2} Low >60 [facility] Comment on above: Result Comment: These [...] secretion. Performed By: #### B MP #### [facility] [address] [place] [address] Comparator Operator: Ramiro Santillan MD Glucose [Mass/Vol] 166 mg/dL High 74-99 [facility] Comment on above: Performed By: #### B MP #### [facility] [address] [place] [address] Comparator Operator: Ramiro Santillan MD Potassium [Moles/Vol] 5.8 mmol/L High 3.7-5.3 [facility] Comment on above: Performed By: #### B MP #### [facility] [address] [place], [place] [id number] Comparator Operator: Ramiro Santillan MD Sodium [Moles/Vol] 137 mmol/L Normal 136-145 [facility] Comment on above: Performed By: #### B MP #### [facility] [address] [place], [place] [id number] Comparator Operator: Ramiro Santillan MD Urea nitrogen [Mass/Vol] 46 mg/dL High 6-20 [facility] Comment on above: Performed By: #### B MP #### [facility] [address] [place], [place] [id number] Comparator Operator: Ramiro Santillan MD Hemoglobin A1Con 10-08-[address] Gluc >427 Normal [facility] Comment on above: Result Comment: SIMONA ECTED ON 10/08 AT 1012: PREVIOUSLY REPORTED Sent to reference laboratory. Separate report to follow. The ADA and AACC recommend providing the estimated average glucose result to permit better patient understanding of their HBA1c result. Performed By: #### L ACTIC #### [facility] [address] [place] [address] Dr[address] [place], [place] [id number] Comparator Operator: Ramiro Santillan MD HbA1c (Bld) [Mass fraction] % High 4.0-6.0 [facility] Comment on above: Result Comment: SIMONA ECTED ON 10/08 AT 1012: PREVIOUSLY REPORTED Sent to reference laboratory. Separate report to follow. Performed By: #### L ACTIC #### [facility] [address] [place] [address] Comparator Operator: Ramiro Santillan MD Cult,CSFon 10-07-2024 Cult,CSF Normal [facility] Comment on above: Performed By: #### C FC ####[address] [place], [place] [phone] Director: Ramiro Mark MD Basic Metab w/rfx MGon 10-06 Anion gap [Moles/Vol] 7 mmol/L Low 9-16 [facility] Comment on above: Performed By: #### C CAMILO FIERRO, BMPX ####[facility] [address] [place], [place] [address])[phone] Director: Ramiro Mark MD Calcium [Mass/Vol] 8.3 mg/dL Low 8.6-10.4 [facility] Comment on above: Performed By: #### C CAMILO FIERRO BMPX ####[facility] [address] [place] [address])[phone] Director: Ramiro Mark MD Chloride [Moles/Vol] 102 mmol/L Normal 98-107 [facility] Comment on above: Performed By: #### C CAMILO FIERRO BMPX ####[facility] [address] [place], [place] [address])[phone] Director: Ramiro Mark MD CO2 [Moles/Vol] 23 mmol/L Normal 20-31 [facility] Comment on above: Performed By: #### C CAMILO FIERRO BMPX ####[facility] [address] [place], [place] [phone] Director: Ramiro Mark MD Creatinine [Mass/Vol] 2.1 mg/dL High 0.7-1.2 [facility] Comment on above: Performed By: #### C CAMILO FIERRO BMPX ####[facility] [address] [place], [place] [address])[phone] Director: Ramiro Mark MD GFR/1.73 sq M.predicted among non-blacks MDRD (S/P/Bld) [Vol rate/Area] 38 mL/min/{1.73_m2} Low >60 [facility] Comment on above: Result Comment: Thes e [...] renal tubular secretion. Performed By: #### C CAMILO FIERRO BMPX ####[facility] [address] [place] [address] [phone] Director: Ramiro Mark MD Glucose [Mass/Vol] 250 mg/dL High 74-99 [facility] Comment on above: Performed By: #### C CAMILO FIERRO BMPX ####[address] [phone] Director: Ramiro Mark MD Potassium [Moles/Vol] 4.6 mmol/L Normal 3.7-5.3 [facility] Comment on above: Result Comment: Spec imen hemolysis has exceeded the interference as defined by Jaime. Value may be falsely increased. Suggest recollection if clinically indicated. Performed By: #### C CAMILO FIERRO BMPX ####[facility] [address] [place] [address] [phone] Director: Ramiro Mark MD Sodium [Moles/Vol] 132 mmol/L Low 136-145 [facility] Comment on above: Performed By: #### C CAMILO FIERRO BMPX ####[facility] [address] [place], [place] [phone] Director: Ramiro Mark MD Urea nitrogen [Mass/Vol] 47 mg/dL High 6-20 [facility] Comment on above: Performed By: #### C CAMILO FIERRO BMPX ####[facility] [address] [place], [place] [phone] Director: Ramiro Mark MD Basic Metabolic Panel w/ Ref jose to MGon 12--2024 Anion gap [Moles/Vol] 7 mmol/L Low 9 - 16 mmol/L [facility] Calcium [Mass/Vol] 8.3 mg/dL Low 8.6 - 10. 4 mg/dL [facility] Chloride [Moles/Vol] 102 mmol/L 98 - 10 7 mmol/L [facility] CO2 [Moles/Vol] 23 mmol/L 20 - 31 mmol/L [facility] Creatinine [Mass/Vol] 2.1 mg/dL High 0.7 - 1.2 mg/dL [facility] Est, Glom Filt Rate 38 Low - PINF [facility] Glucose [Mass/Vol] 250 mg/dL High 74 - 99 mg/dL [facility] Interpretation and review of laboratory results Abnormal [facility] Potassium [Moles/Vol] 4.6 mmol/L 3.7 - 5.3 mmol/L [facility] Sodium [Moles/Vol] 132 mmol/L Low 136 - 145 mmol/L [facility] Urea nitrogen [Mass/Vol] 47 mg/dL High 6 - 20 mg/dL [facility] CBC with Auto Differentialon 10-06-2024 Basophils (Bld) [#/Vol] 0.06 10*3/uL [facility] Basophils/100 WBC (Bld) 1 % 0 - 2 % [facility] Eosinophils (Bld) [#/Vol] 0.32 10*3/uL [facility] Eosinophils/100 WBC (Bld) 5 % High 1 - 4 % [facility] Erythrocyte distribution width (RBC) [Ratio] 13.0 % 11.8 - 14.4 % [facility] Hematocrit (Bld) [Volume fraction] 26.5 % Low 40.7 - 50.3 % [facility] Hemoglobin (Bld) [Mass/Vol] 8.8 g/dL Low 13.0 - 17.0 g/dL [facility] Immature granulocytes (Bld) [#/Vol] 0.04 10*3/uL [facility] Immature granulocytes/100 WBC (Bld) 1 % High 0 [facility] Interpretation and review of laboratory results Abnormal [facility] Lymphocytes/100 WBC (Bld) 19 % Low 24 - 43 % [facility] Lymphocytes/100 WBC (Bld) 1.39 % [facility] MCH (RBC) [Entitic mass] 28.5 pg 25.2 - 33.5 pg [facility] MCHC (RBC) [Mass/Vol] 33.2 g/dL 28.4 - 34.8 g/dL [facility] MCV (RBC) [Entitic vol] 85.8 fL 82.6 - 102.9 fL [facility] Monocytes/100 WBC (Bld) 9 % 3 - 12 % [facility] Monocytes/100 WBC (Bld) 0.61 % [facility] Neutrophils/100 WBC (Bld) 65 % 36 - 65 % [facility] Nucleated RBC/100 WBC (Bld) [Ratio] 0.0 % 0.0 per 100 WBC [facility] Platelet mean volume (Bld) [Entitic vol] 10.1 fL 8.1 - 13.5 fL [facility] Platelets (Bld) [#/Vol] 210 10*3/uL [facility] RBC (Bld) [#/Vol] 3.09 10*6/uL Low 4.21 - 5.7 7 m/uL [facility] Segmented neutrophils/100 WBC (Bld) 4.76 % [facility] WBC other (Bld) [#/Vol] 7.2 [facility] CBC with Diffon 10-06-2024 Abs. Basophil 0.06 k/uL Normal 0.00-0.20 [facility] Comment on above: Performed By: #### C CAMILO FIERRO BMPX ####[address] [place], [place] [id number] lab Director: Ramiro Mark MD Abs.Imm.Granulocyte 0.04 k/uL Normal 0.00-0.30 [facility] Comment on above: Performed By: #### C CAMILO FIERRO BMPX ####[facility] [address] [place], [place] [address])[phone] Director: Ramiro Mark MD Abs.Neutrophil (Seg) 4.76 k/uL Normal 1.50-8.10 [facility] Comment on above: Performed By: #### C CAMILO FIERRO, BMPX ####[place], [place] [address])[phone] Director: Ramiro Mark MD Basophils/100 WBC (Bld) 1 % Normal 0-2 [facility] Comment on above: Performed By: #### C CAMILO FIERRO BMPX ####[place], [place] [address])[phone] Director: Ramiro Mark MD Eosinophils (Bld) [#/Vol] 0.32 10*3/uL Normal 0.00-0.44 [facility] Comment on above: Performed By: #### C CAMILO FIERRO, BMPX ####[place], [place] [address])[phone] Director: Ramiro Mark MD Eosinophils/100 WBC (Bld) 5 % High 1-4 [facility] Comment on above: Performed By: #### C CAMILO FIERRO BMPX ####[place], [place] [address])[phone] Director: Ramiro Mark MD Erythrocyte distribution width (RBC) [Ratio] 13.0 % Normal 11.8-14.4 [facility] Comment on above: Performed By: #### C CAMILO FIERRO BMPX ####[facility] [address] [place], [place] [address])[phone] Director: Ramiro Mark MD Hematocrit (Bld) [Volume fraction] 26.5 % Low 40.7-50.3 [facility] Comment on above: Performed By: #### C CAMILO FIERRO BMPX ####[facility] [address] [place], [place] [phone] Director: Ramiro Mark MD Hemoglobin (Bld) [Mass/Vol] 8.8 g/dL Low 13.0-17.0 [facility] Comment on above: Performed By: #### C CAMILO FIERRO BMPX ####[facility] [address] [place] [address] [phone] Director: Ramiro Mark MD Immature granulocytes/100 WBC (Bld) 1 % High 0 [facility] Comment on above: Performed By: #### C CAMILO FIERRO BMPX ####[address] [address])[phone] Director: Ramiro Mark MD Lymphocytes (Bld) [#/Vol] 1.39 10*3/uL Normal 1.10-3.70 [facility] Comment on above: Performed By: #### C CAMILO FIERRO BMPX ####[address] [address])[phone] Director: Ramiro Mark MD Lymphocytes/100 WBC (Bld) 19 % Low 24-43 [facility] Comment on above: Performed By: #### C CAMILO FIERRO BMPX ####[address] [address])[phone] Director: Ramiro Mark MD MCH (RBC) [Entitic mass] 28.5 pg Normal 25.2-33.5 [facility] Comment on above: Performed By: #### C CAMILO FIERRO BMPX ####[address] [phone] Director: Ramiro Mark MD MCHC (RBC) [Mass/Vol] 33.2 g/dL Normal 28.4-34.8 [facility] Comment on above: Performed By: #### C FREDY FIERRORA, BMPX ####[address] [address])[phone] Director: Ramiro Mark MD MCV (RBC) [Entitic vol] 85.8 fL Normal 82.6-102.9 [facility] Comment on above: Performed By: #### C SRI, FREDYRA, BMPX ####[place], [place] [address])[phone] Director: Ramiro Mark MD Monocytes (Bld) [#/Vol] 0.61 10*3/uL Normal 0.10-1.20 [facility] Comment on above: Performed By: #### C CAMILO FIERRO, BMPX ####[address] [address])[phone] Director: Ramiro Mark MD Monocytes/100 WBC (Bld) 9 % Normal 3-12 [facility] Comment on above: Performed By: #### C CAMILO FIERRO, BMPX ####[address] [address])[phone] Director: Ramiro Mark MD Neutrophil (Seg) 65 % Normal 36-65 [facility] Comment on above: Performed By: #### C FREDY FIERRORA, BMPX ####[address] [address])[phone] Director: Ramiro Mark MD NRBC Automated 0.0 per 100 WBC Normal 0.0 [facility] Comment on above: Performed By: #### C CAMILO FIERRO, BMPX ####[place], [place] [address])[phone] Director: Ramiro Mark MD Platelet mean volume (Bld) [Entitic vol] 10.1 fL Normal 8.1-13.5 [facility] Comment on above: Performed By: #### C DP, KEPPRA, BMPX ####[facility] [address] [place], [place] [phone] Director: Ramiro Mark MD Platelets (Bld) [#/Vol] 210 10*3/uL Normal 138-453 [facility] Comment on above: Performed By: #### C DP, KEPPRA, BMPX ####[facility] [address]otovv[address] [place], [place] [phone] Director: Ramiro Mark MD RBC (Bld) [#/Vol] 3.09 10*6/uL Low 4.21-5.77 [facility] Comment on above: Performed By: #### C DP, KEPPRA, BMPX ####[facility] [address]xt[address] [place], [place] [phone] Director: Ramiro Mark MD WBC (Bld) [#/Vol] 7.2 10*3/uL Normal 3.5-11.3 [facility] Comment on above: Performed By: #### C DP, KEPPRA, BMPX ####[facility] [address] [place], [place] [phone] Director: Ramiro Mark MD Glucose,Whole Bloodon 2023 Glucose [Mass/Vol] 205 mg/dL High 75-110 [facility] Glucose [Mass/Vol] 187 mg/dL High 75-110 [facility] Glucose [Mass/Vol] 203 mg/dL High 75-110 [facility] Glucose [Mass/Vol] 220 mg/dL High 75-110 [facility] Keppraon 10-06-2024 KEPP 30 ug/mL Normal [facility] Comment on above: Result Comment: A re [...] toxicity is not known. Performed By: #### C DP, KEPPRA, BMPX ####[facility] [address] [place], [place] [phone] Lab Director: Ramiro Mark MD Levetiracetam Levelon 2023 levETIRAcetam [Mass/Vol] 30 ug/mL [facility] Oligoclonal Bandson 10-06-20 24 CSF Isoelectric Focusing Interpretation See Note [facility] Oligo Bands Negative [facility] Oligoclonal bands Isoelectric focusing (CSF) [#] 0 [facility] CSF IEF Interp See Note Normal [facility] Comment on above: Result Comment: (NOT E)Isoelectric [...] exercise caution when interpreting the results.Performed By: [employer] [place], [place] [address]Lepvcxueaq Director: Rogelio Miranda MD, PhDCLIA Number: [id number] Performed By: #### O LIG ####[facility] [address] [place], [place] [address] Lab Director: Ramiro Mark MD#### AOLIG ####[facility] [address] [place], [place] [id number] lab Director: Wil Swanson MD Oligo Bands Numb 0 Bands Normal 0-1 [facility] Comment on above: Performed By: #### O LIG ####[facility] [address] [place] [address] lab Director: Ramiro Mark MD#### AOLIG ####[facility] [address] [place] [address] lab Director: Wil Swanson MD Oligoclonal Bands Negative Normal [facility] Comment on above: Performed By: #### O LIG ####[facility] [address]fox[address]34 [place] [address] lab Director: Ramiro Mark MD#### AOLIG ####[facility] [address] [place] [address] lab Director: Wil Swanson MD POC Glucose Fingerstickon Glucose [Mass/Vol] 205 mg/dL High 75 - 110 mg/dL [facility] Interpretation and review of laboratory results Abnormal [facility] Glucose [Mass/Vol] 187 mg/dL High 75 - 110 mg/dL [facility] Interpretation and review of laboratory results Abnormal [facility] Glucose [Mass/Vol] 203 mg/dL High 75 - 110 mg/dL [facility] Interpretation and review of laboratory results Abnormal [facility] Glucose [Mass/Vol] 220 mg/dL High 75 - 110 mg/dL [facility] Interpretation and review of laboratory results Abnormal [facility] VITAMIN B1on 10-06-2024 Thiamine pyrophosphate (Bld) [Moles/Vol] 107 nmol/L 70 - 180 nmol/L [facility] Vitamin B1on 10-06-2024 Vitamin B1 107 nmol/L Normal 70-180 [facility] Comment on above: Result Comment: (NOT E)INTERPRETIVE INFORMATION: Vitamin B1, Whole BloodThis assay measures the concentration of thiamine diphosphate(TDP), the primary active form of vitamin B1. Approximately 90percent of vitamin B1 present in whole blood is TDP. Thiamine andthiamine monophosphate, which comprise the remaining 10 percent,are not measured.This test was developed and its performance characteristicsdetermined by [employer] Commission. It has not been cleared orapproved by the [place] Food and Drug Administration. This test wasperformed in a CLIA certified laboratory and is intended forclinical purposes.Performed By: [employer] [place], [place] [address]Dhnjtimgjf Director: Rogelio Miranda MD, PhDCLIA Number: [id number] Performed By: #### A VITB1 ####[facility] [place] [address] lab Director: Wil Swanson MD#### TREP, B12FOL ####[address] [place] [address] lab Director: Ramiro Mark MD WEST NILE VIRUS, CSFon 10-06 WEST NILE AB IGG CSF 0.38 [facility] WEST NILE AB IGM CSF 0.00 [facility] West Nile Virus, CSFon 10-06 WNV Ab IgG, CSF 0.38 IV Normal <=1.29 [facility] Comment on above: [...] other members of the Flaviviridae family,such as [place] encephalitis virus, show extensivecross-reactivity with West Nile virus, serologic testing specificfor these species should be considered.The detection of antibodies to West Nile virus in cerebrospinalfluid may indicate central nervous system infection. However,consideration must be given to possible contamination by blood ortransfer of serum antibodies across the blood-brain barrier.This test was developed and its performance characteristicsdetermined by [employer]. It has not been cleared orapproved by the [place] Food and Drug Administration. This test wasperformed in a CLIA certified laboratory and is intended forclinical purposes. Performed By: #### C TP, MEVP, CFVD, CGLU, CFCNT ####[address] [place] [address] Lab Director: Ramiro Mark MD#### DESHAUN, AWNCSF ####[facility] [address] [place], [place] [id number] Lab Director: Wil Swanson MD WNV Ab IgM, CSF 0.00 IV Normal <=0.89 [facility] Comment on above: [...] other members of the Flaviviridae family,such as [place] encephalitis virus, show extensivecross-reactivity with West Nile virus, serologic testing specificfor these species should be considered.The detection of antibodies to West Nile virus in cerebrospinalfluid may indicate central nervous system infection. However,consideration must be given to possible contamination by blood ortransfer of serum antibodies across the blood-brain barrier.This test was developed and its performance characteristicsdetermined by [employer]. It has not been cleared orapproved by the US Food and Drug Administration. This test wasperformed in a CLIA certified laboratory and is intended forclinical purposes.Performed By: [employer] [place] [address]Jnkuofduef Director: Rogelio Miranda MD, PhDCLIA Number: [id number] Performed By: #### C TP, MEVP, CFVD, CGLU, CFCNT ####[facility] [address] [place] [address] Lab Director: Ramiro Mark MD#### ALYMCT, AWNCSF ####[address] [id number] Lab Director: Wil Swanson MD Basic Metab w/rfx MGon 10-05 Anion gap [Moles/Vol] 8 mmol/L Low 9-16 [facility] Comment on above: Performed By: #### C DP, BMPX ####[facility] [address] [place] [address] [phone] Director: Ramiro Mark MD Calcium [Mass/Vol] 7.9 mg/dL Low 8.6-10.4 [facility] Comment on above: Performed By: #### C DP, BMPX ####[facility] [address] [place] [address] [phone] Director: Ramiro Mark MD Chloride [Moles/Vol] 103 mmol/L Normal 98-107 [facility] Comment on above: Performed By: #### C DP, BMPX ####[facility] [address] [place], [place] [phone] Director: Ramiro Mark MD CO2 [Moles/Vol] 24 mmol/L Normal 20-31 [facility] Comment on above: Performed By: #### C DP, BMPX ####[facility] [address] [place] [address] [phone] Director: Ramiro Mark MD Creatinine [Mass/Vol] 2.0 mg/dL High 0.7-1.2 [facility] Comment on above: Performed By: #### C DP, BMPX ####[facility] [address] [place] [address] [phone] Director: Ramiro Mark MD GFR/1.73 sq M.predicted among non-blacks MDRD (S/P/Bld) [Vol rate/Area] 40 mL/min/{1.73_m2} Low >60 [facility] Comment on above: Result Comment: Thes e [...] secretion. Performed By: #### C DP, BMPX ####[facility] [address] [place] [address] [phone] Director: Ramiro Mark MD Glucose [Mass/Vol] 189 mg/dL High 74-99 [facility] Comment on above: Performed By: #### C DP, BMPX ####[facility] [address] [place] [address] [phone] Director: Ramiro Mark MD Potassium [Moles/Vol] 4.5 mmol/L Normal 3.7-5.3 [facility] Comment on above: Performed By: #### C DP, BMPX ####[facility] [address] [place], [place] [phone] Director: Ramiro Mark MD Sodium [Moles/Vol] 135 mmol/L Low 136-145 [facility] Comment on above: Performed By: #### C DP, BMPX ####[facility] [address] [place] [address] [phone] Director: Ramiro Mark MD Urea nitrogen [Mass/Vol] 46 mg/dL High 6-20 [facility] Comment on above: Performed By: #### C DP, BMPX ####[facility] [address] [place] [address] lab Director: Ramiro Mark MD Basic Metabolic Panel w/ Ref jose to MGon 10-05-2024 Anion gap [Moles/Vol] 8 mmol/L Low 9 - 16 mmol/L [facility] Calcium [Mass/Vol] 7.9 mg/dL Low 8.6 - 10. 4 mg/dL [facility] Chloride [Moles/Vol] 103 mmol/L 98 - 10 7 mmol/L [facility] CO2 [Moles/Vol] 24 mmol/L 20 - 31 mmol/L [facility] Creatinine [Mass/Vol] 2.0 mg/dL High 0.7 - 1.2 mg/dL [facility] Est, Glom Filt Rate 40 Low - PINF [facility] Glucose [Mass/Vol] 189 mg/dL High 74 - 99 mg/dL [facility] Interpretation and review of laboratory results Abnormal [facility] Potassium [Moles/Vol] 4.5 mmol/L 3.7 - 5.3 mmol/L [facility] Sodium [Moles/Vol] 135 mmol/L Low 136 - 145 mmol/L [facility] Urea nitrogen [Mass/Vol] 46 mg/dL High 6 - 20 mg/dL [facility] CBC with Auto Differentialon 10-05-2024 Basophils (Bld) [#/Vol] 0.04 10*3/uL [facility] Basophils/100 WBC (Bld) 1 % 0 - 2 % [facility] Eosinophils (Bld) [#/Vol] 0.28 10*3/uL [facility] Eosinophils/100 WBC (Bld) 4 % 1 - 4 % [facility] Erythrocyte distribution width (RBC) [Ratio] 13.0 % 11.8 - 14.4 % [facility] Hematocrit (Bld) [Volume fraction] 25.8 % Low 40.7 - 50.3 % [facility] Hemoglobin (Bld) [Mass/Vol] 8.3 g/dL Low 13.0 - 17.0 g/dL [facility] Immature granulocytes (Bld) [#/Vol] 0.03 10*3/uL [facility] Immature granulocytes/100 WBC (Bld) 1 % High 0 [facility] Interpretation and review of laboratory results Abnormal [facility] Lymphocytes/100 WBC (Bld) 20 % Low 24 - 43 % [facility] Lymphocytes/100 WBC (Bld) 1.29 % [facility] MCH (RBC) [Entitic mass] 28.3 pg 25.2 - 33.5 pg [facility] MCHC (RBC) [Mass/Vol] 32.2 g/dL 28.4 - 34.8 g/dL [facility] MCV (RBC) [Entitic vol] 88.1 fL 82.6 - 102.9 fL [facility] Monocytes/100 WBC (Bld) 10 % 3 - 12 % [facility] Monocytes/100 WBC (Bld) 0.68 % [facility] Neutrophils/100 WBC (Bld) 64 % 36 - 65 % [facility] Nucleated RBC/100 WBC (Bld) [Ratio] 0.0 % 0.0 per 100 WBC [facility] Platelet mean volume (Bld) [Entitic vol] 10.4 fL 8.1 - 13.5 fL [facility] Platelets (Bld) [#/Vol] 198 10*3/uL [facility] RBC (Bld) [#/Vol] 2.93 10*6/uL Low 4.21 - 5.7 7 m/uL [facility] Segmented neutrophils/100 WBC (Bld) 4.20 % [facility] WBC other (Bld) [#/Vol] 6.5 [facility] CBC with Diffon 10-05-2024 Abs. Basophil 0.04 k/uL Normal 0.00-0.20 [facility] Comment on above: Performed By: #### C DP, BMPX ####[address] [place], [place] [address])[phone] Director: Ramiro Mark MD Abs.Imm.Granulocyte 0.03 k/uL Normal 0.00-0.30 [facility] Comment on above: Performed By: #### C DP, BMPX ####[address] [address])[phone] Director: Ramiro Mark MD Abs.Neutrophil (Seg) 4.20 k/uL Normal 1.50-8.10 [facility] Comment on above: Performed By: #### C DP, BMPX ####[place], [place] [address])[phone] Director: Ramiro Mark MD Basophils/100 WBC (Bld) 1 % Normal 0-2 [facility] Comment on above: Performed By: #### C DP, BMPX ####[place], [place] [address])[phone] Director: Ramiro Mark MD Eosinophils (Bld) [#/Vol] 0.28 10*3/uL Normal 0.00-0.44 [facility] Comment on above: Performed By: #### C DP, BMPX ####[address] [address])[phone] Director: Ramiro Mark MD Eosinophils/100 WBC (Bld) 4 % Normal 1-4 [facility] Comment on above: Performed By: #### C DP, BMPX ####[address] [address])[phone] Director: Ramiro Mark MD Erythrocyte distribution width (RBC) [Ratio] 13.0 % Normal 11.8-14.4 [facility] Comment on above: Performed By: #### C DP, BMPX ####[place], [place] [address])[phone] Director: Ramiro Mark MD Hematocrit (Bld) [Volume fraction] 25.8 % Low 40.7-50.3 [facility] Comment on above: Performed By: #### C DP, BMPX ####[facility] [address] [place], [place] [phone] Director: Ramiro Mark MD Hemoglobin (Bld) [Mass/Vol] 8.3 g/dL Low 13.0-17.0 [facility] Comment on above: Performed By: #### C DP, BMPX ####[address] [address])[phone] Director: Ramiro Mark MD Immature granulocytes/100 WBC (Bld) 1 % High 0 [facility] Comment on above: Performed By: #### C DP, BMPX ####[place], [place] [address])[phone] Director: Ramiro Mark MD Lymphocytes (Bld) [#/Vol] 1.29 10*3/uL Normal 1.10-3.70 [facility] Comment on above: Performed By: #### C DP, BMPX ####[address] [address])[phone] Director: Ramiro Mark MD Lymphocytes/100 WBC (Bld) 20 % Low 24-43 [facility] Comment on above: Performed By: #### C DP, BMPX ####[facility] [address] [place], [place] [address])[phone] Director: Ramiro Mark MD MCH (RBC) [Entitic mass] 28.3 pg Normal 25.2-33.5 [facility] Comment on above: Performed By: #### C DP, BMPX ####[facility] [address] [place], [place] [address])[phone] Director: Ramiro Mark MD MCHC (RBC) [Mass/Vol] 32.2 g/dL Normal 28.4-34.8 [facility] Comment on above: Performed By: #### C DP, BMPX ####[place], [place] [address])[phone] Director: Ramiro Mark MD MCV (RBC) [Entitic vol] 88.1 fL Normal 82.6-102.9 [facility] Comment on above: Performed By: #### C DP, BMPX ####[place], [place] [address])[phone] Director: Ramiro Mark MD Monocytes (Bld) [#/Vol] 0.68 10*3/uL Normal 0.10-1.20 [facility] Comment on above: Performed By: #### C DP, BMPX ####[place], [place] [address])[phone] Director: Ramiro Mark MD Monocytes/100 WBC (Bld) 10 % Normal 3-12 [facility] Comment on above: Performed By: #### C DP, BMPX ####[place], [place] [address])[phone] Director: Ramiro Mark MD Neutrophil (Seg) 64 % Normal 36-65 [facility] Comment on above: Performed By: #### C DP, BMPX ####[place], [place] [address])[phone] Director: Ramiro Mark MD NRBC Automated 0.0 per 100 WBC Normal 0.0 [facility] Comment on above: Performed By: #### C DP, BMPX ####[place], [place] [address])[phone] Director: Ramiro Mark MD Platelet mean volume (Bld) [Entitic vol] 10.4 fL Normal 8.1-13.5 [facility] Comment on above: Performed By: #### C DP, BMPX ####[facility] [address] [place], [place] [phone] Director: Ramiro Mark MD Platelets (Bld) [#/Vol] 198 10*3/uL Normal 138-453 [facility] Comment on above: Performed By: #### C DP, BMPX ####[facility] [address] [place], [place] [phone] Director: Ramiro Mark MD RBC (Bld) [#/Vol] 2.93 10*6/uL Low 4.21-5.77 [facility] Comment on above: Performed By: #### C DP, BMPX ####[facility] [address] [place], [place] [phone] Director: Ramiro Mark MD WBC (Bld) [#/Vol] 6.5 10*3/uL Normal 3.5-11.3 [facility] Comment on above: Performed By: #### C DP, BMPX ####[facility] [address] [place], [place] [phone] Director: Ramiro Mark MD Cytology, Non-Gynon 10-05-20 [facility] Electrophysiology procedureo n 10-05-2024 Body surface area Derived from formula 2 m2 [facility] Glucose,Whole Bloodon 2023 Glucose [Mass/Vol] 167 mg/dL High 75-110 [facility] Glucose [Mass/Vol] 268 mg/dL High 75-110 [facility] Glucose [Mass/Vol] 153 mg/dL High 75-110 [facility] Glucose [Mass/Vol] 177 mg/dL High 75-110 [facility] Lyme Disease AB, CSFon 10-05 B. burgdorferi Ab IA Qn (CSF) 0.18 NINF [facility] Lyme Disease Ab,CSFon 2023 B burgdorferi Ab,CSF 0.18 IV Normal <=0.90 [facility] Comment on above: Result Comment: (NOT [...] was developed and its performance characteristicsdetermined by [employer]. It has not been cleared orapproved by the [place] Food and Drug Administration. This test wasperformed in a CLIA certified laboratory and is intended forclinical purposes.Performed By: [employer] [place], [place] [address]Ubfexzkwak Director: Rogelio Miranda MD, PhDCLIA Number: [id number] Performed By: #### C TP, MEVP, CFVD, CGLU, CFCNT ####[address] [id number] Lab Director: Ramiro Mark MD#### ALYMCHUCK, AWNCSF ####[employer] [place] [address] Lab Director: Wil Swanson MD No Panel Informationon 10-05 [facility] CV CPACS HEMO [facility] Radiology Study observation (narrative) [facility] No Panel InformationOrdered By: Adrian Bryant on 10-05-2024 [facility] Work Phone: Non-[employer] Cytologyon Case No: [id number] Normal [facility] Comment on above: Performed By: #### N EPIC ANESTHESIA ANALYST ####[address] [place], [place] [id number] lab Director: Ramiro Mark MD POC Glucose Fingerstickon Glucose [Mass/Vol] 167 mg/dL High 75 - 110 mg/dL [facility] Interpretation and review of laboratory results Abnormal [facility] Glucose [Mass/Vol] 268 mg/dL High 75 - 110 mg/dL [facility] Interpretation and review of laboratory results Abnormal [facility] Glucose [Mass/Vol] 153 mg/dL High 75 - 110 mg/dL [facility] Interpretation and review of laboratory results Abnormal [facility] Glucose [Mass/Vol] 177 mg/dL High 75 - 110 mg/dL [facility] Interpretation and review of laboratory results Abnormal [facility] SURGICAL PATHOLOGY REPORTon 10-05-2024 Surgical Pathology Report [facility] US Heart Transesophagealon 1 12-06-2023 Body surface area Derived from formula 2 m2 [facility] EF Physician 55 % [facility] CV CPACS HEMO [facility] Radiology Study observation (narrative) [facility] VDRL, CSFon 10-05-2024 Reagin Ab VDRL Ql (CSF) Non-Reactive NONREACTIVE [facility] VDRL, Qual, CSFon 10-05-2024 VDRL, Qual, CSF Non-Reactive Normal NR [facility] Comment on above: Performed By: #### C TP, MEVP, CFVD, CGLU, CFCNT ####[facility] [address] [place], [place] [id number] lab Director: Ramiro Mark MD#### ALYMCT, AWNCSF ####[facility] [address] [place] [id number] Lab Director: Wil Swanson MD Basic Metab w/rfx MGon 10-04 Anion gap [Moles/Vol] 10 mmol/L Normal 9-16 [facility] Comment on above: Performed By: #### C DP, BMPX, PT ####[facility] [address] [place] [address] Lab Director: Ramiro Mark MD Calcium [Mass/Vol] 7.9 mg/dL Low 8.6-10.4 [facility] Comment on above: Performed By: #### C DP, BMPX, PT ####[facility] Dgzvtndqkdio7257 [place] [address] Lab Director: Ramiro Mark MD Chloride [Moles/Vol] 102 mmol/L Normal 98-107 [facility] Comment on above: Performed By: #### C DP, BMPX, PT ####[facility] Yxmj[address]zd[address]50[address] [place], [place] [phone] Director: Ramiro Mark MD CO2 [Moles/Vol] 21 mmol/L Normal 20-31 [facility] Comment on above: Performed By: #### C DP, BMPX, PT ####[facility] Qckdjcpltxaq6392 [place] [address] Lab Director: Ramiro Mark MD Creatinine [Mass/Vol] 1.8 mg/dL High 0.7-1.2 [facility] Comment on above: Performed By: #### C DP, BMPX, PT ####[facility] [address]vuh[address] [place] [address] Lab Director: Ramiro Mark MD GFR/1.73 sq M.predicted among non-blacks MDRD (S/P/Bld) [Vol rate/Area] 45 mL/min/{1.73_m2} Low >60 [facility] Comment on above: Result Comment: Thes e [...] tubular secretion. Performed By: #### C DP, BMPX, PT ####[facility] X[address] [place], [place] [address])[phone] Director: Ramiro Mark MD Glucose [Mass/Vol] 161 mg/dL High 74-99 [facility] Comment on above: Performed By: #### C SRI BMPX, PT ####[facility] [address] [place], [place] [address])[phone] Director: Ramiro Mark MD Potassium [Moles/Vol] 4.1 mmol/L Normal 3.7-5.3 [facility] Comment on above: Performed By: #### C SRI BMPX, PT ####[facility] Dbtuwys[address]xriv64[address] [place], [place] [phone] Director: Ramiro Mark MD Sodium [Moles/Vol] 133 mmol/L Low 136-145 [facility] Comment on above: Performed By: #### C SRI BMPX, PT ####[facility] [address]jes[address] [place], [place] [phone] Director: Ramiro Mark MD Urea nitrogen [Mass/Vol] 40 mg/dL High 6-20 [facility] Comment on above: Performed By: #### C DP BMPX, PT ####[facility] [address]sci[address] [place], [place] [address])[phone] Director: Ramiro Mark MD Basic Metabolic Panel w/ Ref jose to MGon 10-04-2024 Anion gap [Moles/Vol] 10 mmol/L 9 - 16 mmol/L [facility] Calcium [Mass/Vol] 7.9 mg/dL Low 8.6 - 10. 4 mg/dL [facility] Chloride [Moles/Vol] 102 mmol/L 98 - 10 7 mmol/L [facility] CO2 [Moles/Vol] 21 mmol/L 20 - 31 mmol/L [facility] Creatinine [Mass/Vol] 1.8 mg/dL High 0.7 - 1.2 mg/dL [facility] Est, Glom Filt Rate 45 Low - PINF [facility] Glucose [Mass/Vol] 161 mg/dL High 74 - 99 mg/dL [facility] Interpretation and review of laboratory results Abnormal [facility] Potassium [Moles/Vol] 4.1 mmol/L 3.7 - 5.3 mmol/L [facility] Sodium [Moles/Vol] 133 mmol/L Low 136 - 145 mmol/L [facility] Urea nitrogen [Mass/Vol] 40 mg/dL High 6 - 20 mg/dL [facility] CBC with Auto Differentialon 10-04-2024 Basophils (Bld) [#/Vol] 0.03 10*3/uL [facility] Basophils/100 WBC (Bld) 0 % 0 - 2 % [facility] Eosinophils (Bld) [#/Vol] 0.28 10*3/uL [facility] Eosinophils/100 WBC (Bld) 4 % 1 - 4 % [facility] Erythrocyte distribution width (RBC) [Ratio] 12.9 % 11.8 - 14.4 % [facility] Hematocrit (Bld) [Volume fraction] 29.9 % Low 40.7 - 50.3 % [facility] Hemoglobin (Bld) [Mass/Vol] 9.8 g/dL Low 13.0 - 17.0 g/dL [facility] Immature granulocytes (Bld) [#/Vol] [facility] Immature granulocytes/100 WBC (Bld) 0 % 0 [facility] Interpretation and review of laboratory results Abnormal [facility] Lymphocytes/100 WBC (Bld) 15 % Low 24 - 43 % [facility] Lymphocytes/100 WBC (Bld) 1.18 % [facility] MCH (RBC) [Entitic mass] 28.2 pg 25.2 - 33.5 pg [facility] MCHC (RBC) [Mass/Vol] 32.8 g/dL 28.4 - 34.8 g/dL [facility] MCV (RBC) [Entitic vol] 85.9 fL 82.6 - 102.9 fL [facility] Monocytes/100 WBC (Bld) 8 % 3 - 12 % [facility] Monocytes/100 WBC (Bld) 0.64 % [facility] Neutrophils/100 WBC (Bld) 73 % High 36 - 65 % [facility] Nucleated RBC/100 WBC (Bld) [Ratio] 0.0 % 0.0 per 100 WBC [facility] Platelet mean volume (Bld) [Entitic vol] 10.7 fL 8.1 - 13.5 fL [facility] Platelets (Bld) [#/Vol] 225 10*3/uL [facility] RBC (Bld) [#/Vol] 3.48 10*6/uL Low 4.21 - 5.7 7 m/uL [facility] Segmented neutrophils/100 WBC (Bld) 5.80 % [facility] WBC other (Bld) [#/Vol] 8.0 [facility] CBC with Diffon 10-04-2024 Abs. Basophil 0.03 k/uL Normal 0.00-0.20 [facility] Comment on above: Performed By: #### C CHAI FIERRO, PT ####[facility] HospitalPacer ElectronicsYloqyxxklarc[address] [place] [address] Lab Director: Ramiro Mark MD Abs.Imm.Granulocyte <0.03 Normal 0.00-0.30 [facility] Comment on above: Performed By: #### C DPLEENAX, PT ####[facility] Hospital[facility]acer ElectronicsHqyuakicnoth[address] [place] [phone] lab Director: Ramiro Mark MD Abs.Neutrophil (Seg) 5.80 k/uL Normal 1.50-8.10 [facility] Comment on above: Performed By: #### C DP, BMPX, PT ####[facility] [address] [place] [address] Lab Director: Ramiro Mark MD Basophils/100 WBC (Bld) 0 % Normal 0-2 [facility] Comment on above: Performed By: #### C DP, BMPX, PT ####[facility] [address] [place] [address])[phone] Director: Ramiro Mark MD Eosinophils (Bld) [#/Vol] 0.28 10*3/uL Normal 0.00-0.44 [facility] Comment on above: Performed By: #### C DP, BMPX, PT ####[facility] X[address] [place], [place] [address])[phone] Director: Ramiro Mark MD Eosinophils/100 WBC (Bld) 4 % Normal 1-4 [facility] Comment on above: Performed By: #### C DP, BMPX, PT ####[facility] A[address] [place], [place] [address])[phone] Director: Ramiro Mark MD Erythrocyte distribution width (RBC) [Ratio] 12.9 % Normal 11.8-14.4 [facility] Comment on above: Performed By: #### C DP, BMPX, PT ####[place], [place] [address])[phone] Director: Ramiro Mark MD Hematocrit (Bld) [Volume fraction] 29.9 % Low 40.7-50.3 [facility] Comment on above: Performed By: #### C DP, BMPX, PT ####[facility] [address] [place] [address])[phone] Director: Ramiro Mark MD Hemoglobin (Bld) [Mass/Vol] 9.8 g/dL Low 13.0-17.0 [facility] Comment on above: Performed By: #### C DP, BMPX, PT ####[facility] [address]zmtb[address]990 [place] [address] Lab Director: Ramiro Mark MD Immature granulocytes/100 WBC (Bld) 0 % Normal 0 [facility] Comment on above: Performed By: #### C DP, BMPX, PT ####[facility] [address]zmytoowlv1584 [place], [place] [address])[phone] Director: Ramiro Mark MD Lymphocytes (Bld) [#/Vol] 1.18 10*3/uL Normal 1.10-3.70 [facility] Comment on above: Performed By: #### C DP, BMPX, PT ####[facility] [address]we[address]ivkpz6076 [place], [place] [address])[phone] Director: Ramiro Mark MD Lymphocytes/100 WBC (Bld) 15 % Low 24-43 [facility] Comment on above: Performed By: #### C DP, BMPX, PT ####[facility] [address] [place] [address])[phone] Director: Ramiro Mark MD MCH (RBC) [Entitic mass] 28.2 pg Normal 25.2-33.5 [facility] Comment on above: Performed By: #### C DP, BMPX, PT ####[facility] [address]omixncbdi8997 [place], [place] [address])[phone] Director: Ramiro Mark MD MCHC (RBC) [Mass/Vol] 32.8 g/dL Normal 28.4-34.8 [facility] Comment on above: Performed By: #### C DP, BMPX, PT ####[facility] [address]rtqltajvzso7591 [place] [address] Lab Director: Ramiro Mark MD MCV (RBC) [Entitic vol] 85.9 fL Normal 82.6-102.9 [facility] Comment on above: Performed By: #### C DP, BMPX, PT ####[facility] [address]qihtyolplmf[address] [place], [place] [phone] Director: Ramiro Mark MD Monocytes (Bld) [#/Vol] 0.64 10*3/uL Normal 0.10-1.20 [facility] Comment on above: Performed By: #### C DP, BMPX, PT ####[facility] [address] [place] [address] [phone] Director: Ramiro Mark MD Monocytes/100 WBC (Bld) 8 % Normal 3-12 [facility] Comment on above: Performed By: #### C DP, BMPX, PT ####[facility] [address] [place] [address] [phone] Director: Ramiro Mark MD Neutrophil (Seg) 73 % High 36-65 [facility] Comment on above: Performed By: #### C DP, BMPX, PT ####[facility] [address] [place] [address] [phone] Director: Ramiro Mark MD NRBC Automated 0.0 per 100 WBC Normal 0.0 [facility] Comment on above: Performed By: #### C DP, BMPX, PT ####[facility] [address] [place] [address] [phone] Director: Ramiro Mark MD Platelet mean volume (Bld) [Entitic vol] 10.7 fL Normal 8.1-13.5 [facility] Comment on above: Performed By: #### C DP, BMPX, PT ####[facility] Qolyqmsytexg8640 [place], [place] [phone] Director: Ramiro Mark MD Platelets (Bld) [#/Vol] 225 10*3/uL Normal 138-453 [facility] Comment on above: Performed By: #### C DP, BMPX, PT ####[facility] [address] [place] [address] Lab Director: Ramiro Mark MD RBC (Bld) [#/Vol] 3.48 10*6/uL Low 4.21-5.77 [facility] Comment on above: Performed By: #### C LEENA FIERROX, PT ####[facility] Julvkmvmltzy5262 [place], [place] [phone] Director: Ramiro Mark MD WBC (Bld) [#/Vol] 8.0 10*3/uL Normal 3.5-11.3 [facility] Comment on above: Performed By: #### C ELENA FIERROX, PT ####[facility] [address] [place] [address] [phone] Director: Ramiro Mark MD CSF Cell Counton 10-04-2024 Appearance (U) Clear Normal [facility] Comment on above: Performed By: #### C TP, MEVP, CFVD, CGLU, CFCNT ####[facility] [address] [place] [address] [phone] Director: Ramiro Mark MD#### [employer] ####[facility] [address] [place], [place] [phone] Lab Director: Wil Swanson MD Clot Check None Seen Normal [facility] Comment on above: Performed By: #### C TP, MEVP, CFVD, CGLU, CFCNT ####[facility] [address] [place] [address] [phone] Director: Ramiro Mark MD#### [employer] ####[facility] [address] [place], [place] [phone] Lab Director: Wil Swanson MD Color (U) Colorless Normal [facility] Comment on above: Performed By: #### C TP, MEVP, CFVD, CGLU, CFCNT ####[facility] [address] [place] [address] Lab Director: Ramiro Mark MD#### [employer] ####[facility] [address] [place] [address] Lab Director: Wil Swanson MD CSF Total Nucleated Cells 2 cells/uL Normal 0-5 [facility] Comment on above: Result Comment: Unab le to perform differential due to a low number of TNC/WBC's in specimen. Performed By: #### C TP, MEVP, CFVD, CGLU, CFCNT ####[facility] [address] [place] [address] Lab Director: Ramiro Mark MD#### [employer] ####[facility] [address] [place] [address] Lab Director: Wil Swanson MD RBC (Bld) [#/Vol] 0 10*6/uL High 0 [facility] Comment on above: Performed By: #### C TP, MEVP, CFVD, CGLU, CFCNT ####[facility] [address] [place] [address] [phone] Director: Ramiro Mark MD#### [employer] ####[facility] [address]hipxdpoppv[address] [place] [address] Lab Director: Wil Swanson MD Tube Number 3 Normal [facility] Comment on above: Performed By: #### C TP, MEVP, CFVD, CGLU, CFCNT ####[facility] [address] [place] [address] [phone] Director: Ramiro Mark MD#### [employer] ####[facility] [address]ctnejmriihq074 [place] [address] Lab Director: Wil Swanson MD Xanthochromia ABSENT Normal [facility] Comment on above: Performed By: #### C TP, MEVP, CFVD, CGLU, CFCNT ####[facility] [address]efq8431 [place] [address] Lab Director: Ramiro Mark MD#### DESHAUN, AWSEBASSF ####[facility] [address]fcwn[address] [place] [address] Lab Director: Wil Swanson MD Volume 8 mL Normal [facility] Comment on above: Performed By: #### C TP, MEVP, CFVD, CGLU, CFCNT ####[facility] Xpqbgpksiyxu7998 [place], [place] [phone] lab Director: Ramiro Mark MD#### DESHAUN, AWNCSF ####[facility] [address] [place] [address] lab Director: Wil Swanson MD Cell Count with Differential , [facility] Appearance (CSF) Clear [facility] Incentive Targeting Cells Counted Total (Bronch spec) [#] 2 [facility] Incentive Targeting Clot Check None Seen [facility] Incentive Targeting Color (CSF) Colorless [facility] Interpretation and review of laboratory results Abnormal [facility] RBC Manual cnt (Body fld) [#/Vol] 3 High 0 cells/uL [facility] Specimen volume (CSF) 8 mL [facility] Tube number Nom (CSF) [ID] 3 [facility] Xanthochromia Ql (CSF) ABSENT Trip [facility] Glucose, [facility]20[facility] Glucose (CSF) [Mass/Vol] 73 mg/dL High 40 - 70 mg/dL [facility] Glucose,[facility] 10[facility]04-2024 Glucose [Mass/Vol] 73 mg/dL High 40-70 [facility] Comment on above: Performed By: #### C TP, MEVP, CFVD, CGLU, CFCNT ####[facility] Onnjsejlnvkn[address] [place], [place] [phone] Lab Director: Ramiro Mark MD#### ALYMCT, AWNCS ####[facility] [address] [place] [address] lab Director: Wil Swanson MD Glucose,Whole Bloodon 2023 Glucose [Mass/Vol] 199 mg/dL High 75-110 [facility] Glucose [Mass/Vol] 197 mg/dL High 75-110 [facility] Glucose [Mass/Vol] 161 mg/dL High 75-110 [facility] Glucose [Mass/Vol] 148 mg/dL High 75-110 [facility] Guidance for puncture of Lum bar spineon 10-04-2024 MHPN RIS CONSOLIDATED PN RIS CONSOLIDATED [facility] Radiology Study observation (narrative) [facility] Guidance for puncture of Lum bar spineOrdered By: Faustino Hanna on 10-04-2024 [facility] Work Phone: IR LUMBAR PUNCTURE FOR DIAGN OSISon 10-04-2024 IR LUMBAR PUNCTURE FOR DIAGNOSIS Normal [facility] Meningitis Encephalitis Pane l CSF, Molecularon 10-04-2024 C. gattii+neoformans DNA MEETA+non-probe Ql (CSF) Not detected Not Detected [facility] CMV DNA MEETA+non-probe Ql (CSF) Not detected Not Detected [facility] E. coli K1 DNA MEETA+non-probe Ql (CSF) Not detected Not Detected [facility] Enterovirus RNA MEETA+non-probe Ql (CSF) Not detected Not Detected [facility] H. influenzae DNA MEETA+non-probe Ql (CSF) Not detected Not Detected [facility] HHV 6 DNA MEETA+non-probe Ql (CSF) Not detected Not Detected [facility] HSV 1 DNA MEETA+non-probe Ql (CSF) Not detected Not Detected [facility] HSV 2 DNA MEETA+non-probe Ql (CSF) Not detected Not Detected [facility] L. monocytogenes DNA MEETA+non-probe Ql (CSF) Not detected Not Detected [facility] N. meningitidis DNA MEETA+non-probe Ql (CSF) Not detected Not Detected [facility] Parechovirus A RNA MEETA+non-probe Ql (CSF) Not detected Not Detected [facility] S. agalactiae DNA MEETA+non-probe Ql (CSF) Not detected Not Detected [facility] S. pneumoniae DNA MEETA+non-probe Ql (CSF) Not detected Not Detected [facility] Specimen Description .[facility] VZV DNA MEETA+non-probe Ql (CSF) Not detected Not Detected [facility] Meningitis Panelon 4 C. neoformans/gattii Not detected Normal [facility] Comment on above: Result Comment: Perf ormed by multiplexed nucleic acid assay. Performed By: #### C TP, MEVP, CFVD, CGLU, CFCNT ####[facility] [address] [place] [address] Lab Director: Ramiro Mark MD#### [employer] ####[facility] [address]qpernxxsibm[address] [place] [address] Lab Director: Wil Swanson MD Cytomegalovirus Not detected Normal [facility] Comment on above: Performed By: #### C TP, MEVP, CFVD, CGLU, CFCNT ####[facility] [address] [place] [address] Lab Director: Ramiro Mark MD#### [employer] ####[facility] Izjxdkcbbbvi388 [place] [address] Lab Director: Wil Swanson MD Enterovirus Not detected Normal [facility] Comment on above: Performed By: #### C TP, MEVP, CFVD, CGLU, CFCNT ####[facility] [address] [place] [address] Lab Director: Ramiro Mark MD#### [employer] ####[facility] [address] [place] [address] Lab Director: Wil Swanson MD Escherichia coli K1 Not detected Normal [facility] Comment on above: Performed By: #### C TP, MEVP, CFVD, CGLU, CFCNT ####[facility] [address] [place] [address] Lab Director: Ramiro Mark MD#### [employer]ADE ####[facility] [address] [place] [address] Lab Director: Wil Swanson MD Haemoph. influenzae Not detected Normal [facility] Comment on above: Performed By: #### C TP, MEVP, CFVD, CGLU, CFCNT ####[address] [address] Lab Director: Ramiro Mark MD#### CHESTER MEADE ####[facility] [address] [place] [address] Lab Director: Wil Swanson MD HSV-1 Not detected Normal [facility] Comment on above: Performed By: #### C TP, MEVP, CFVD, CGLU, CFCNT ####[address] [address] Lab Director: Ramiro Mark MD#### [employer]STER MEADE ####[facility] [address] [place] [address] Lab Director: Wil Swanson MD HSV-2 Not detected Normal [facility] Comment on above: Performed By: #### C TP, MEVP, CFVD, CGLU, CFCNT ####[facility] [address] [place] [address] Lab Director: Ramiro Mark MD#### ALYMCT, AWNCSF ####[facility] [address]xlyqbmfkv[address] [place] [address] Lab Director: Wil Swanson MD Human herpesvirus 6 Not detected Normal [facility] Comment on above: Performed By: #### C TP, MEVP, CFVD, CGLU, CFCNT ####[facility] [address] [place] [address] Lab Director: Ramiro Mark MD#### REJI MEADENCSF ####[facility] [address] [place] [address] Lab Director: Wil Swanson MD Human parechovirus Not detected Normal [facility] Comment on above: Performed By: #### C TP, MEVP, CFVD, CGLU, CFCNT ####[place] [address] Lab Director: Ramiro Mark MD#### REJI MEADENCSF ####[facility] [address] [place] [address] Lab Director: Wil Swanson MD List. monocytogenes Not detected Normal [facility] Comment on above: Performed By: #### C TP, MEVP, CFVD, CGLU, CFCNT ####[address] [address] Lab Director: Ramiro Mark MD#### DESHAUN, REJINCSF ####[facility] [address] [place] [address] Lab Director: Wil Swanson MD Neis. meningitidis Not detected Normal [facility] Comment on above: Performed By: #### C TP, MEVP, CFVD, CGLU, CFCNT ####[facility] [address] [place] [address] Lab Director: Ramiro Mark MD#### ALYMCT, AWNCSF ####[facility] X[address]xt[address] [place] [address] Lab Director: Wil Swanson MD Strep. agalactiae Not detected [facility] Comment on above: Performed By: #### C TP, MEVP, CFVD, CGLU, CFCNT ####[facility] [address] [place] [address] Lab Director: Ramiro Mark MD#### ALYMCT, AWNCSF ####[facility] [address] [place] [address] [phone] Lab Director: Wil Swanson MD Strep. pneumoniae Not detected [facility] Comment on above: Performed By: #### C TP, MEVP, CFVD, CGLU, CFCNT ####[place] [address] Lab Director: Ramiro Mark MD#### ALYMCT, AWNCSF ####[facility] [address] [place] [address] [phone] Lab Director: Wil Swanson MD Varicella-zoster Not detected [facility] Comment on above: Performed By: #### C TP, MEVP, CFVD, CGLU, CFCNT ####[place] [address] Lab Director: Ramiro Mark MD#### ALYMCT, AWNCSF ####[facility] [address] [place] [address] [phone] Lab Director: Wil Swanson MD Source: .[facility] Comment on above: Performed By: #### C TP, MEVP, CFVD, CGLU, CFCNT ####[facility] [address] [place] [address] Lab Director: Ramiro Mark MD#### ALYMCHUCK AWNCSF ####[facility] [address] [place] [address] Lab Director: Wil Swanson MD Miscellaneouson 10-04-2024 Test Name ENC2 THORNTON Normal [facility] Comment on above: Performed By: #### C MIS1 ####[facility] [address]pr4487 [place] [address] Lab Director: Ramiro Mark MD No Panel Informationon 10-04 Interpretation and review of laboratory results Abnormal Bon [facility] Oligoclonal Band Profileon 1 12-05-2023 Albumin Index - CSF 143.7 High <9.0 [facility] Comment on above: Performed By: #### O LIG ####[facility] [place], [place] [phone] Director: Ramiro Mark MD#### AOLIG ####[facility] [address] [place] [address] Lab Director: Wil Swanson MD Albumin, CSF 431 mg/L High 70-350 [facility] Comment on above: Performed By: #### O LIG ####[facility] [address] [place] [address] Lab Director: Ramiro Mark MD#### AOLIG ####[facility] [address] [place] [address] Lab Director: Wil Swanson MD IgG [Mass/Vol] 769 mg/dL Normal 700-1600 [facility] Comment on above: Performed By: #### O LIG ####[facility] [address] [place], [place] [phone] Director: Ramiro Mark MD#### AOLIG ####[facility] [address] [place], [place] [phone] Lab Director: Wil Swanson MD IgG Index, CSF 0.81 High <0.70 [facility] Comment on above: Performed By: #### O LIG ####[address] [address] Lab Director: Ramiro Mark MD#### AOLIG ####[address] [phone] Lab Director: Wil Swanson MD IgG Synthesis 18.0 mg/24 h High <3.3 [facility] Comment on above: Performed By: #### O LIG ####[place] [address] Lab Director: Ramiro Mark MD#### AOLIG ####[address] [phone] Lab Director: Wil Swanson MD IgG, CSF 9.0 mg/dL High 1.0-3.0 [facility] Comment on above: Performed By: #### O LIG ####[address] [address] Lab Director: Ramiro Mark MD#### AOLIG ####[address] [phone] Lab Director: Wil Swanson MD Oligoclonal Bands Oligoclonal bands ar e performed at [facility] using isoelectric focusing [facility] Comment on above: Result Comment: and immunofixation. Performed By: #### O LIG ####[place] [address] Lab Director: Ramiro Mark MD#### AOLIG ####[address] [address] Lab Director: Wil Swanson MD Albumin [Mass/Vol] 3.0 g/dL Low 3.5-5.2 [facility] Comment on above: Performed By: #### O LIG ####[facility] [address] [place] [address] Lab Director: Ramiro Mark MD#### AOLIG ####[facility] [address] [place] [address] Lab Director: Wil Swanson MD Oligoclonal Bandingon 2023 Albumin (CSF) [Mass/Vol] 431 mg/L High 70 - 350 mg/L [facility] Albumin [Mass/Vol] 3.0 g/dL Low 3.5 - 5.2 g/dL [facility] Albumin Index 143.7 High NINF - 9.0 [facility] IgG (CSF) [Mass/Vol] 9.0 mg/dL High 1.0 - 3 .0 mg/dL [facility] IgG [Mass/Vol] 769 mg/dL 700 - 1600 mg/dL [facility] IgG Index, CSF 0.81 High NINF - 0.70 [facility] IgG Synthesis Rate, CSF 18.0 High NINF [facility] Interpretation and review of laboratory results Abnormal [facility] Oligo Bands Oligoclonal bands ar e performed at [facility] Cmxtwenty using isoelectric focusing and immunofixation. [facility] POC Glucose Fingerstickon Glucose [Mass/Vol] 199 mg/dL High 75 - 110 mg/dL [facility] Interpretation and review of laboratory results Abnormal [facility] Glucose [Mass/Vol] 197 mg/dL High 75 - 110 mg/dL [facility] Interpretation and review of laboratory results Abnormal [facility] Glucose [Mass/Vol] 161 mg/dL High 75 - 110 mg/dL [facility] Interpretation and review of laboratory results Abnormal [facility] Glucose [Mass/Vol] 148 mg/dL High 75 - 110 mg/dL [facility] Interpretation and review of laboratory results Abnormal [facility] PTon 10-04-2024 INR Coag (PPP) [Relative time] 1.1 {INR} Normal [facility] Comment on above: Result Comment: Ther apeutic Range: Moderate Anticoagulant Intensity: INR = 2.0-3.0 High Anticoagulant Intensity: INR = 2.5-3.5 Performed By: #### C DP, BMPX, PT ####[email or web address] [address] [place], [place] [phone] Lab Director: Ramiro Mark MD PT Coag (PPP) [Time] 13.6 s Normal 11.7-14.9 [facility] Comment on above: Performed By: #### C DP, BMPX, PT ####[email or web address] [address] [place] [address] Lab Director: Ramiro Mark MD Protein, CSFon 10-04-2024 Protein (CSF) [Mass/Vol] 78.9 mg/dL High 15.0 - 45.0 mg/dL [facility] Protein, Total, CSFon 2023 Total Protein - CSF 78.9 mg/dL High 15.0-45.0 [facility] Comment on above: Performed By: #### C TP, MEVP, CFVD, CGLU, CFCNT ####[facility] [address] [place] [address] [phone] Lab Director: Ramiro Mark MD#### ABHINAVCT, AWNCSF ####[employer] [address] [place] [address] [phone] Lab Director: Wil Swanson MD Protime-INRon 10-04-2024 [facility] Surgical Pathology Reporton 10-04-2024 Surgical Pathology Report Normal [facility] B12/Folate Panelon Cobalamin (Vitamin B12) [Mass/Vol] 791 pg/mL Normal 232-1245 [facility] Comment on above: Performed By: #### A VITB1 ####[employer] [address] [place] [address] lab Director: Wil Swanson MD#### TREP, B12FOL ####[facility] [address] [place] [address] lab Director: Ramiro Mark MD Folic Acid 11.5 ng/mL Normal 4.8-24.2 [facility] Comment on above: Performed By: #### A VITB1 ####[employer] [address] [place] [address] lab Director: Wil Swanson MD#### TREYuli, B12FOL ####[address] [phone] lab Director: Ramiro Mark MD Basic Metab w/rfx MGon 10-03 Anion gap [Moles/Vol] 11 mmol/L Normal 9-16 [facility] Comment on above: Performed By: #### C DP, TSHX, BMPX ####[facility] [address]01 [place] [address] Lab Director: Ramiro Mark MD Calcium [Mass/Vol] 7.7 mg/dL Low 8.6-10.4 [facility] Comment on above: Performed By: #### C DP, TSHX, BMPX ####[facility] [address] [place] [address] Lab Director: Ramiro Mark MD Chloride [Moles/Vol] 104 mmol/L Normal 98-107 [facility] Comment on above: Performed By: #### C DP, TSHX, BMPX ####[facility] [address]axi[address]99 [place] [address] Lab Director: Ramiro Mark MD CO2 [Moles/Vol] 20 mmol/L Normal 20-31 [facility] Comment on above: Performed By: #### C DP, TSHX, BMPX ####[facility] [address]jlmfaaikiob8544 [place] [address] Lab Director: Ramiro Mark MD Creatinine [Mass/Vol] 1.9 mg/dL High 0.7-1.2 [facility] Comment on above: Performed By: #### C DP, TSHX, BMPX ####[facility] [address] [place] [address] Lab Director: Ramiro Mark MD GFR/1.73 sq M.predicted among non-blacks MDRD (S/P/Bld) [Vol rate/Area] 42 mL/min/{1.73_m2} Low >60 [facility] Comment on above: Result Comment: Thes e [...] tubular secretion. Performed By: #### C DP, TSHX, BMPX ####[facility] [address] [place] [address] Lab Director: Ramiro Mark MD Glucose [Mass/Vol] 170 mg/dL High 74-99 [facility] Comment on above: Performed By: #### C DP, TSHX, BMPX ####[facility] [address] [place] [address] Lab Director: Ramiro Mark MD Potassium [Moles/Vol] 4.0 mmol/L Normal 3.7-5.3 [facility] Comment on above: Performed By: #### C DP, TSHX, BMPX ####[facility] [address] [place] [address] Lab Director: Ramiro Mark MD Sodium [Moles/Vol] 135 mmol/L Low 136-145 [facility] Comment on above: Performed By: #### C DP, TSHX, BMPX ####[facility] [address] [place], [place] [id number] Lab Director: Ramiro Mark MD Urea nitrogen [Mass/Vol] 42 mg/dL High 6-20 [facility] Comment on above: Performed By: #### C DP, TSHX, BMPX ####[facility] [address]ts[address]xffdihp[address] [place], [place] [phone] lab Director: Ramiro Mark MD Basic Metabolic Panel w/ Ref jose to MGon 10-03-2024 Anion gap [Moles/Vol] 11 mmol/L 9 - 16 mmol/L [facility] Calcium [Mass/Vol] 7.7 mg/dL Low 8.6 - 10. 4 mg/dL [facility] Chloride [Moles/Vol] 104 mmol/L 98 - 10 7 mmol/L [facility] CO2 [Moles/Vol] 20 mmol/L 20 - 31 mmol/L [facility] Creatinine [Mass/Vol] 1.9 mg/dL High 0.7 - 1.2 mg/dL [facility] Est, Glom Filt Rate 42 Low - PINF [facility] Glucose [Mass/Vol] 170 mg/dL High 74 - 99 mg/dL [facility] Interpretation and review of laboratory results Abnormal [facility] Potassium [Moles/Vol] 4.0 mmol/L 3.7 - 5.3 mmol/L [facility] Sodium [Moles/Vol] 135 mmol/L Low 136 - 145 mmol/L [facility] Urea nitrogen [Mass/Vol] 42 mg/dL High 6 - 20 mg/dL [facility] CBC with Auto Differentialon 10-03-2024 Basophils (Bld) [#/Vol] 0.05 10*3/uL [facility] Basophils/100 WBC (Bld) 1 % 0 - 2 % [facility] Eosinophils (Bld) [#/Vol] 0.22 10*3/uL [facility] Eosinophils/100 WBC (Bld) 3 % 1 - 4 % [facility] Erythrocyte distribution width (RBC) [Ratio] 13.0 % 11.8 - 14.4 % [facility] Hematocrit (Bld) [Volume fraction] 26.8 % Low 40.7 - 50.3 % [facility] Hemoglobin (Bld) [Mass/Vol] 8.8 g/dL Low 13.0 - 17.0 g/dL [facility] Immature granulocytes (Bld) [#/Vol] 0.04 10*3/uL [facility] Immature granulocytes/100 WBC (Bld) 1 % High 0 [facility] Interpretation and review of laboratory results Abnormal [facility] Lymphocytes/100 WBC (Bld) 15 % Low 24 - 43 % [facility] Lymphocytes/100 WBC (Bld) 1.24 % [facility] MCH (RBC) [Entitic mass] 28.4 pg 25.2 - 33.5 pg [facility] MCHC (RBC) [Mass/Vol] 32.8 g/dL 28.4 - 34.8 g/dL [facility] MCV (RBC) [Entitic vol] 86.5 fL 82.6 - 102.9 fL [facility] Monocytes/100 WBC (Bld) 8 % 3 - 12 % [facility] Monocytes/100 WBC (Bld) 0.71 % [facility] Neutrophils/100 WBC (Bld) 72 % High 36 - 65 % [facility] Nucleated RBC/100 WBC (Bld) [Ratio] 0.0 % 0.0 per 100 WBC [facility] Platelet mean volume (Bld) [Entitic vol] 10.5 fL 8.1 - 13.5 fL [facility] Platelets (Bld) [#/Vol] 193 10*3/uL [facility] RBC (Bld) [#/Vol] 3.10 10*6/uL Low 4.21 - 5.7 7 m/uL [facility] Segmented neutrophils/100 WBC (Bld) 6.32 % [facility] WBC other (Bld) [#/Vol] 8.6 [facility] CBC with Diffon 10-03-2024 Abs. Basophil 0.05 k/uL Normal 0.00-0.20 [facility] Comment on above: Performed By: #### C DP, TSHX, BMPX ####[facility] [address] [place] [address] Lab Director: Ramiro Mark MD Abs.Imm.Granulocyte 0.04 k/uL Normal 0.00-0.30 [facility] Comment on above: Performed By: #### C DP, TSHX, BMPX ####[facility] [address] [place] [address])[phone] Director: Ramiro Mark MD Abs.Neutrophil (Seg) 6.32 k/uL Normal 1.50-8.10 [facility] Comment on above: Performed By: #### C DP, TSHX, BMPX ####[address] [address]([facility])[phone] Director: Ramior Mark MD Basophils/100 WBC (Bld) 1 % Normal 0-2 [facility] Comment on above: Performed By: #### C DP, TSHX, BMPX ####[address] [address])[phone] Director: Ramiro Mark MD Eosinophils (Bld) [#/Vol] 0.22 10*3/uL Normal 0.00-0.44 [facility] Comment on above: Performed By: #### C DP, TSHX, BMPX ####[facility] [address] [place], [place] [address])[phone] Director: Ramiro Mark MD Eosinophils/100 WBC (Bld) 3 % Normal 1-4 [facility] Comment on above: Performed By: #### C DP, TSHX, BMPX ####[address] [address])[phone] Director: Ramiro Mark MD Erythrocyte distribution width (RBC) [Ratio] 13.0 % Normal 11.8-14.4 [facility] Comment on above: Performed By: #### C DP, TSHX, BMPX ####[facility] [address] [place] [address] [phone] Director: Ramiro Mark MD Hematocrit (Bld) [Volume fraction] 26.8 % Low 40.7-50.3 [facility] Comment on above: Performed By: #### C DP, TSHX, BMPX ####[facility] [address] [place] [address] [phone] Director: Ramiro Mark MD Hemoglobin (Bld) [Mass/Vol] 8.8 g/dL Low 13.0-17.0 [facility] Comment on above: Performed By: #### C DP, TSHX, BMPX ####[address] [address])[phone] Director: Ramiro Mark MD Immature granulocytes/100 WBC (Bld) 1 % High 0 [facility] Comment on above: Performed By: #### C DP, TSHX, BMPX ####[address] [phone] Director: Ramiro Mark MD Lymphocytes (Bld) [#/Vol] 1.24 10*3/uL Normal 1.10-3.70 [facility] Comment on above: Performed By: #### C DP, TSHX, BMPX ####[facility] [address] [place], [place] [phone] Director: Ramiro Mark MD Lymphocytes/100 WBC (Bld) 15 % Low 24-43 [facility] Comment on above: Performed By: #### C DP, TSHX, BMPX ####[facility] [address] [place], [place] [phone] Director: Ramiro Mark MD MCH (RBC) [Entitic mass] 28.4 pg Normal 25.2-33.5 [facility] Comment on above: Performed By: #### C DP, TSHX, BMPX ####[address] [phone] Director: Ramiro Mark MD MCHC (RBC) [Mass/Vol] 32.8 g/dL Normal 28.4-34.8 [facility] Comment on above: Performed By: #### C DP, TSHX, BMPX ####[facility] [address] [place] [address] [phone] Director: Ramiro Mark MD MCV (RBC) [Entitic vol] 86.5 fL Normal 82.6-102.9 [facility] Comment on above: Performed By: #### C DP, TSHX, BMPX ####[address] [phone] Director: Ramiro Mark MD Monocytes (Bld) [#/Vol] 0.71 10*3/uL Normal 0.10-1.20 [facility] Comment on above: Performed By: #### C DP, TSHX, BMPX ####[address] [phone] Director: Ramiro Mark MD Monocytes/100 WBC (Bld) 8 % Normal 3-12 [facility] Comment on above: Performed By: #### C DP, TSHX, BMPX ####[facility] [address] [place] [address] [phone] Director: Ramiro Mark MD Neutrophil (Seg) 72 % High 36-65 [facility] Comment on above: Performed By: #### C DP, TSHX, BMPX ####[facility] [address] [place] [address] [phone] Director: Ramiro Mark MD NRBC Automated 0.0 per 100 WBC Normal 0.0 [facility] Comment on above: Performed By: #### C DP, TSHX, BMPX ####[facility] [address] [place] [address] Lab Director: Ramiro Mark MD Platelet mean volume (Bld) [Entitic vol] 10.5 fL Normal 8.1-13.5 [facility] Comment on above: Performed By: #### C DP, TSHX, BMPX ####[facility] [address] [place] [address] [phone] Director: Ramiro Mark MD Platelets (Bld) [#/Vol] 193 10*3/uL Normal 138-453 [facility] Comment on above: Performed By: #### C DP, TSHX, BMPX ####[address] [phone] Director: Ramiro Mark MD RBC (Bld) [#/Vol] 3.10 10*6/uL Low 4.21-5.77 [facility] Comment on above: Performed By: #### C DP, TSHX, BMPX ####[facility] [address] [place] [address] [phone] Director: Ramiro Mark MD WBC (Bld) [#/Vol] 8.6 10*3/uL Normal 3.5-11.3 [facility] Comment on above: Performed By: #### C DP, TSHX, BMPX ####[facility] [address] [place] [address] Lab Director: Ramiro Mark MD Cult, Bloodon 10-03-2024 Cult, Blood Specimen Description .BLOOD Special Requests 20ML RIGHT WRIST Culture NO GROWTH 5 DAYS Report Status FINAL 10/03/2024 Normal [facility] Comment on above: Performed By: #### L ACTIC #### [facility] [address] [place] [address] Comparator Operator: Ramiro Santillan MD Glucose,Whole Bloodon 2023 Glucose [Mass/Vol] 190 mg/dL High 75-110 [facility] Glucose [Mass/Vol] 163 mg/dL High -110 [facility] Glucose [Mass/Vol] 88 mg/dL Normal 75-110 [facility] Glucose [Mass/Vol] 133 mg/dL High 75-110 [facility] No Panel Informationon 10-03 [employer] Nuclear stress test with marcio cardial perfusionOrdered By: Ludmila Rushing on 10-03-2024 Baseline Diastolic BP 110 mmHg [employer] Phone: Baseline HR 76 BPM [employer] Phone: Baseline Systolic BP 183 mmHg [employer] Phone: Body surface area Derived from formula 2 m2 [employer] Work Phone: Stress Diastolic BP 110 mmHg Bon [employer] Phone: Stress Estimated Workload 1.0 METS [employer] Phone: Stress Peak HR 83 BPM Sharon Bernabe s [employer] Phone: Stress Percent HR Achieved 49 % [employer] Phone: Stress Rate Pressure Product 96021 BPM*mmHg [employer] Work Phone: Stress Systolic BP 183 mmHg Bon cours [email or web address] Work Phone: Stress Target HR 170 bpm Bon Lorenzoo urs [email or web address] Work Phone: [employer] Phone: Nuclear stress test with marcio cardial perfusionon 10-03-2024 [facility] CV RPACS STRESS [facility] CV RPACS STRESS Radiology Study observation (narrative) [employer] POC Glucose Fingerstickon Glucose [Mass/Vol] 190 mg/dL High 75 - 110 mg/dL [facility] Interpretation and review of laboratory results Abnormal [facility] Glucose [Mass/Vol] 163 mg/dL High 75 - 110 mg/dL [facility] Interpretation and review of laboratory results Abnormal [facility] Glucose [Mass/Vol] 88 mg/dL 75 - 110 mg/dL [facility] Glucose [Mass/Vol] 133 mg/dL High 75 - 110 mg/dL [facility] Interpretation and review of laboratory results Abnormal [facility] T. PALLIDUM ABon 10-03-2024 T. pallidum Ab IA Ql (S) Non-Reactive NONREACTIVE [facility] T.pallidum Ab Screenon 10-03 T.pallidum Ab Screen Non-Reactive Normal NR [facility] Comment on above: Result Comment: T. p allidum antibodies are not detected.There is no serological evidence of infection with T. pallidum (early primary syphilis cannot be excluded). Retest in 2-4 weeks if syphilis is clinically suspect. Performed By: #### A VITB1 ####[facility] [address] [place] [address] Lab Director: Wil Swanson MD#### TREP, B12FOL ####[facility] [address] [place] [address] [phone] Lab Director: Ramiro Mark MD TSH reflex to FT4on 10-03-20 24 TSH Qn 1.19 m[IU]/L [facility] TSH w/reflex to FT4on 2023 Thyroid Stim. Horm. 1.19 uIU/mL Normal 0.27-4.20 [facility] Comment on above: Performed By: #### C DP, TSHX, BMPX ####[facility] [address] [place], [place] [id number] Lab Director: Ramiro Mark MD Vitamin B12 & Folateon 10-03 Cobalamin (Vitamin B12) [Mass/Vol] 791 pg/mL 232 - 1245 pg/mL [facility] Folate [Mass/Vol] 11.5 ng/mL 4.8 - 24.2 ng/mL [facility] CLAUDIO Screen w/reflexon 2023 CLAUDIO Screen Negative Normal NEG [facility] Comment on above: Performed By: #### F KLLC, PE, ANAX, PHEP, MG, CHELO, BMP ####[facility] [address] [place], [place] [phone] Lab Director: Ramiro Mark MD Anti-dsDNA 0.6 IU/mL Normal <10.0 [facility] Comment on above: Result Comment: Refe rence Range:<10.0 Ftoxujub18.0-15.0 Equivocal>15.0 Positive Performed By: #### F KLLC, PE, ANAX, PHEP, MG, CHELO, BMP ####[facility] [address] [place] [address] [phone] Lab Director: Ramiro Mark MD KIM Screen 0.2 U/mL Normal <0.7 [facility] Comment on above: Result Comment: Refe rence Range:<0.7 Negative0.7-1.0 Equivocal>1.0 PositiveENA Screen includes U1RNP,RNP70,Sm,Ro(SS-A),La(SS-B),CENP,Scl-70,Debbi-1 Performed By: #### F KLLC, PE, ANAX, PHEP, MG, CHELO, BMP ####[facility] [address] [place] [address] lab Director: Ramiro Mark MD CLAUDIO Screen with Reflexon DNA double strand IgG IA Ql (S) 0.6 NINF [facility] Nuclear Ab IA Ql (S) Negative NEGATIVE [facility] Nuclear IgG IA (S) [Ratio] 0.2 U/mL NINF - 0.7 U/mL [facility] Incentive Targeting Basic Metab w/rfx MGon 10-02 Anion gap [Moles/Vol] 9 mmol/L Normal 9-16 [facility] Comment on above: Performed By: #### C DP, BMPX ####[facility] [address] [place], [place] [phone] Director: Ramiro Mark MD Calcium [Mass/Vol] 8.0 mg/dL Low 8.6-10.4 [facility] Comment on above: Performed By: #### C DP, BMPX ####[facility] [address] [place], [place] [phone] Director: Ramiro Mark MD Chloride [Moles/Vol] 110 mmol/L High 98-107 [facility] Comment on above: Performed By: #### C DP, BMPX ####[facility] [address] [place] [address] [phone] Director: Ramiro Mark MD CO2 [Moles/Vol] 22 mmol/L Normal 20-31 [facility] Comment on above: Performed By: #### C DP, BMPX ####[facility] [address] [place], [place] [phone] Director: Ramiro Mark MD Creatinine [Mass/Vol] 2.1 mg/dL High 0.7-1.2 [facility] Comment on above: Performed By: #### C DP, BMPX ####[facility] [address] [place] [address] [phone] Director: Ramiro Mark MD GFR/1.73 sq M.predicted among non-blacks MDRD (S/P/Bld) [Vol rate/Area] 38 mL/min/{1.73_m2} Low >60 [facility] Comment on above: Result Comment: Thes e [...] Performed By: #### C DP, BMPX ####[facility] [address] [place], [place] [address])[phone] Director: Ramiro Mark MD Glucose [Mass/Vol] 80 mg/dL Normal 74-99 [facility] Comment on above: Performed By: #### C DP, BMPX ####[facility] [address] [place], [place] [address])[phone] Director: Ramiro Mark MD Potassium [Moles/Vol] 3.8 mmol/L Normal 3.7-5.3 [facility] Comment on above: Performed By: #### C DP, BMPX ####[facility] [address] [place] [phone])[phone] Director: Ramiro Mark MD Sodium [Moles/Vol] 141 mmol/L Normal 136-145 [facility] Comment on above: Performed By: #### C DP, BMPX ####[facility] [address] [place] [address] Lab Director: Ramiro Mark MD Urea nitrogen [Mass/Vol] 41 mg/dL High 6-20 [facility] Comment on above: Performed By: #### C DP, BMPX ####[facility] [address] [place], [place] [address])[phone] Director: Ramiro Mark MD Basic Metabolic Panel w/ Ref jose to MGon 10-02-2024 Anion gap [Moles/Vol] 9 mmol/L 9 - 16 mmol/L [facility] Calcium [Mass/Vol] 8.0 mg/dL Low 8.6 - 10. 4 mg/dL [facility] Chloride [Moles/Vol] 110 mmol/L High 98 - 10 7 mmol/L [facility] CO2 [Moles/Vol] 22 mmol/L 20 - 31 mmol/L [facility] Creatinine [Mass/Vol] 2.1 mg/dL High 0.7 - 1.2 mg/dL [facility] Est, Glom Filt Rate 38 Low - PINF [facility] Glucose [Mass/Vol] 80 mg/dL 74 - 99 mg/dL [facility] Interpretation and review of laboratory results Abnormal [facility] Potassium [Moles/Vol] 3.8 mmol/L 3.7 - 5.3 mmol/L [facility] Sodium [Moles/Vol] 141 mmol/L 136 - 145 mmol/L [facility] Urea nitrogen [Mass/Vol] 41 mg/dL High 6 - 20 mg/dL [facility] CBC with Auto Differentialon 10-02-2024 Basophils (Bld) [#/Vol] [facility] Basophils/100 WBC (Bld) 0 % 0 - 2 % [facility] Eosinophils (Bld) [#/Vol] 0.12 10*3/uL [facility] Eosinophils/100 WBC (Bld) 2 % 1 - 4 % [facility] Erythrocyte distribution width (RBC) [Ratio] 13.4 % 11.8 - 14.4 % [facility] Hematocrit (Bld) [Volume fraction] 25.8 % Low 40.7 - 50.3 % [facility] Hemoglobin (Bld) [Mass/Vol] 8.4 g/dL Low 13.0 - 17.0 g/dL [facility] Immature granulocytes (Bld) [#/Vol] 0.03 10*3/uL [facility] Immature granulocytes/100 WBC (Bld) 0 % 0 [facility] Interpretation and review of laboratory results Abnormal [facility] Lymphocytes/100 WBC (Bld) 10 % Low 24 - 43 % [facility] Lymphocytes/100 WBC (Bld) 0.79 % Low [facility] MCH (RBC) [Entitic mass] 28.6 pg 25.2 - 33.5 pg [facility] MCHC (RBC) [Mass/Vol] 32.6 g/dL 28.4 - 34.8 g/dL [facility] MCV (RBC) [Entitic vol] 87.8 fL 82.6 - 102.9 fL [facility] Monocytes/100 WBC (Bld) 9 % 3 - 12 % [facility] Monocytes/100 WBC (Bld) 0.70 % [facility] Neutrophils/100 WBC (Bld) 79 % High 36 - 65 % [facility] Nucleated RBC/100 WBC (Bld) [Ratio] 0.0 % 0.0 per 100 WBC [facility] Platelet mean volume (Bld) [Entitic vol] 10.6 fL 8.1 - 13.5 fL [facility] Platelets (Bld) [#/Vol] 180 10*3/uL [facility] RBC (Bld) [#/Vol] 2.94 10*6/uL Low 4.21 - 5.7 7 m/uL [facility] Incentive Targeting Segmented neutrophils/100 WBC (Bld) 6.31 % [facility] WBC other (Bld) [#/Vol] 8.0 [facility] CBC with Diffon 10-02-2024 Abs. Basophil <0.03 Normal 0.00-0.20 [facility] Comment on above: Performed By: #### C DP, BMPX ####[facility] [address] [place] [address] Lab Director: Ramiro Mark MD Abs.Imm.Granulocyte 0.03 k/uL Normal 0.00-0.30 [facility] Comment on above: Performed By: #### C DP, BMPX ####[facility] [address] [place] [address] Lab Director: Ramiro Mark MD Abs.Neutrophil (Seg) 6.31 k/uL Normal 1.50-8.10 [facility] Comment on above: Performed By: #### C DP, BMPX ####[facility] [address] [place] [address] Lab Director: Ramiro Mark MD Basophils/100 WBC (Bld) 0 % Normal 0-2 [facility] Comment on above: Performed By: #### C DP, BMPX ####[address] [address])[phone] Director: Ramiro Mark MD Eosinophils (Bld) [#/Vol] 0.12 10*3/uL Normal 0.00-0.44 [facility] Comment on above: Performed By: #### C DP, BMPX ####[address] [address])[phone] Director: Ramiro Mark MD Eosinophils/100 WBC (Bld) 2 % Normal 1-4 [facility] Comment on above: Performed By: #### C DP, BMPX ####[place], [place] [address])[phone] Director: Ramiro Mark MD Erythrocyte distribution width (RBC) [Ratio] 13.4 % Normal 11.8-14.4 [facility] Comment on above: Performed By: #### C DP, BMPX ####[place], [place] [address])[phone] Director: Ramiro Mark MD Hematocrit (Bld) [Volume fraction] 25.8 % Low 40.7-50.3 [facility] Comment on above: Performed By: #### C DP, BMPX ####[place], [place] [address])[phone] Director: Ramiro Mark MD Hemoglobin (Bld) [Mass/Vol] 8.4 g/dL Low 13.0-17.0 [facility] Comment on above: Performed By: #### C DP, BMPX ####[facility] [address] [place] [address])[phone] Director: Ramiro Mark MD Immature granulocytes/100 WBC (Bld) 0 % Normal 0 [facility] Comment on above: Performed By: #### C DP, BMPX ####[facility] [address] [place], [place] [address])[phone] Director: Ramiro Mark MD Lymphocytes (Bld) [#/Vol] 0.79 10*3/uL Low 1.10-3.70 [facility] Comment on above: Performed By: #### C DP, BMPX ####[place], [place] [address])[phone] Director: Ramiro Mark MD Lymphocytes/100 WBC (Bld) 10 % Low 24-43 [facility] Comment on above: Performed By: #### C DP, BMPX ####[place], [place] [address])[phone] Director: Ramiro Mark MD MCH (RBC) [Entitic mass] 28.6 pg Normal 25.2-33.5 [facility] Comment on above: Performed By: #### C DP, BMPX ####[place], [place] [address])[phone] Director: Ramiro Mark MD MCHC (RBC) [Mass/Vol] 32.6 g/dL Normal 28.4-34.8 [facility] Comment on above: Performed By: #### C DP, BMPX ####[place], [place] [address])[phone] Director: Ramiro Mark MD MCV (RBC) [Entitic vol] 87.8 fL Normal 82.6-102.9 [facility] Comment on above: Performed By: #### C DP, BMPX ####[place], [place] [address])[phone] Director: Ramiro Mark MD Monocytes (Bld) [#/Vol] 0.70 10*3/uL Normal 0.10-1.20 [facility] Comment on above: Performed By: #### C DP, BMPX ####[facility] [address] [place], [place] [id number])[phone] Director: Ramiro Mark MD Monocytes/100 WBC (Bld) 9 % Normal 3-12 [facility] Comment on above: Performed By: #### C DP, BMPX ####[address] [phone] Director: Ramiro Mark MD Neutrophil (Seg) 79 % High 36-65 [facility] Comment on above: Performed By: #### C DP, BMPX ####[address] [phone] Director: Ramiro Mark MD NRBC Automated 0.0 per 100 WBC Normal 0.0 [facility] Comment on above: Performed By: #### C DP, BMPX ####[address] [phone] Director: Ramiro Mark MD Platelet mean volume (Bld) [Entitic vol] 10.6 fL Normal 8.1-13.5 [facility] Comment on above: Performed By: #### C DP, BMPX ####[address] [phone] Director: Ramiro Mark MD Platelets (Bld) [#/Vol] 180 10*3/uL Normal 138-453 [facility] Comment on above: Performed By: #### C DP, BMPX ####[facility] [address] [place] [address] Lab Director: Ramiro Mark MD RBC (Bld) [#/Vol] 2.94 10*6/uL Low 4.21-5.77 [facility] Comment on above: Performed By: #### C DP, BMPX ####[address] [phone] lab Director: Ramiro Mark MD WBC (Bld) [#/Vol] 8.0 10*3/uL Normal 3.5-11.3 [facility] Comment on above: Performed By: #### C DP, BMPX ####[facility] [address] [place], [place] [phone] lab Director: Ramiro Mark MD Glucose,Whole Bloodon 2023 Glucose [Mass/Vol] 224 mg/dL High 75-110 [facility] Glucose [Mass/Vol] 219 mg/dL High 75-110 [facility] Glucose [Mass/Vol] 211 mg/dL High 75-110 [facility] Glucose [Mass/Vol] 175 mg/dL High 75-110 [facility] Glucose [Mass/Vol] 81 mg/dL Normal 75-110 [facility] POC Glucose Fingerstickon Glucose [Mass/Vol] 224 mg/dL High 75 - 110 mg/dL [facility] Interpretation and review of laboratory results Abnormal [facility] Glucose [Mass/Vol] 219 mg/dL High 75 - 110 mg/dL [facility] Interpretation and review of laboratory results Abnormal [facility] Glucose [Mass/Vol] 211 mg/dL High 75 - 110 mg/dL [facility] Interpretation and review of laboratory results Abnormal [facility] Glucose [Mass/Vol] 175 mg/dL High 75 - 110 mg/dL [facility] Interpretation and review of laboratory results Abnormal [facility] Glucose [Mass/Vol] 81 mg/dL 75 - 110 mg/dL [facility] Prot. Electrophoresis, Uron 10-02-2024 Pathologist Review: ELECTRONICALLY ALEX LACY M.D. Normal [facility] Comment on above: Performed By: #### U RCL, URNA, UPE, URTPRT ####[email or web address] [address] [place] [address] Lab Director: Ramiro Mark MD Ur.-Prot.Elect-Inter Elevated protein concentration. Most serum proteins are detected in Normal [facility] Comment on above: Result Comment: this urine. Usually observed with markedly increased nonselectiveglomerular permaeabilty (severe glomerular disease) and/orcontamination of urine with blood. A decrease in tubular functioncannot be ruled out. Performed By: #### U RCL, URNA, UPE, URTPRT ####[email or web address] [address] [place] [address] lab Director: Ramiro Mark MD Protein Electrophoresis, Uri neon 10-02-2024 P E Interpretation, U Elevated protein concentration. Most serum proteins are detected in [facility] Pathologist ELECTRONICALLY ALEX LACY M.D. [facility] Protein (U) [Mass/Vol] 100 mg/dL [facility] Specimen type Nom (Spec) .URINE [facility] Arterial Bld Gas,POCon 10-01 FIO2 30.0 Normal [facility] HCO3 (Bld) [Moles/Vol] 25.1 mmol/L Normal 21.0-28.0 M [facility] O2 Device Adult Ventilator Normal [facility] Oxygen saturation in Blood 99.4 % High 94.0-98.0 [facility] pCO2, Arterial 33.7 mm Hg Low 35.0-48.0 [facility] pH, Arterial 7.480 High 7.350-7.450 [facility] pO2, Arterial 143.0 mm Hg High 83.0-108.0 [facility] Positive Base Excess (calc) 1.5 mmol/L Normal 0.0-3.0 [facility] Site Drawn Right Radial Artery Normal [facility] Arterial Blood Gas, POCon FIO2 30.0 [facility] HCO3 (Bld) [Moles/Vol] 25.1 mmol/L 21.0 - 28.0 mmol/L [facility] Incentive Targeting O2 Delivery Device Adult Ventilator [facility] Oxygen saturation in Blood 99.4 % High 94.0 - 98.0 % [facility] [employer] POC pCO2 33.7 Low [facility] POC pH 7.480 High 7.350 - 7.450 [facility] POC PO2 143.0 High [facility] Positive Base Excess, Art 1.5 mmol/L 0.0 - 3.0 mmol/L [facility] Sample Site Right Radial Artery [facility] Basic Metab w/rfx MGon 10-01 Anion gap [Moles/Vol] 8 mmol/L Low 9-16 [facility] Comment on above: Performed By: #### C DP, BMPX, LIPR ####[facility] [address] [place], [place] [address])[phone] Director: Ramiro Mark MD Calcium [Mass/Vol] 8.1 mg/dL Low 8.6-10.4 [facility] Comment on above: Performed By: #### C DP, BMPX, LIPR ####[facility] [address] [place], [place] [address])[phone] Director: Ramiro Mark MD Chloride [Moles/Vol] 108 mmol/L High 98-107 [facility] Comment on above: Performed By: #### C DP, BMPX, LIPR ####[facility] [address] [place] [address] Lab Director: Ramiro Mark MD CO2 [Moles/Vol] 23 mmol/L Normal 20-31 [facility] Comment on above: Performed By: #### C DP, BMPX, LIPR ####[facility] [address] [place] [address] Lab Director: Ramiro Mark MD Creatinine [Mass/Vol] 2.3 mg/dL High 0.7-1.2 [facility] Comment on above: Performed By: #### C DP, BMPX, LIPR ####[facility] [address] [place] [address] Lab Director: Ramiro Mark MD GFR/1.73 sq M.predicted among non-blacks MDRD (S/P/Bld) [Vol rate/Area] 34 mL/min/{1.73_m2} Low >60 [facility] Comment on above: Result Comment: Thes e [...] tubular secretion. Performed By: #### C DP, BMPX, LIPR ####[facility] [address] [place] [address])[phone] Director: Ramiro Mark MD Glucose [Mass/Vol] 180 mg/dL High 74-99 [facility] Comment on above: Performed By: #### C DP, BMPX, LIPR ####[facility] [address] [place] [address])[phone] Director: Ramiro Mark MD Potassium [Moles/Vol] 4.0 mmol/L Normal 3.7-5.3 [facility] Comment on above: Performed By: #### C DP, BMPX, LIPR ####[facility] [address] [place] [address] Lab Director: Ramiro Mark MD Sodium [Moles/Vol] 139 mmol/L Normal 136-145 [facility] Comment on above: Performed By: #### C DP, BMPX, LIPR ####[facility] [address] [place], [place] [phone] Director: Ramiro Mark MD Urea nitrogen [Mass/Vol] 46 mg/dL High 6-20 [facility] Comment on above: Performed By: #### C DP, BMPX, LIPR ####[facility] [address] [place] [address] lab Director: Ramiro Mark MD Basic Metabolic Panel w/ Ref jose to MGon 10-01-2024 Anion gap [Moles/Vol] 8 mmol/L Low 9 - 16 mmol/L [facility] Calcium [Mass/Vol] 8.1 mg/dL Low 8.6 - 10. 4 mg/dL [facility] Chloride [Moles/Vol] 108 mmol/L High 98 - 10 7 mmol/L [facility] CO2 [Moles/Vol] 23 mmol/L 20 - 31 mmol/L [facility] Creatinine [Mass/Vol] 2.3 mg/dL High 0.7 - 1.2 mg/dL [facility] Est, Glom Filt Rate 34 Low - PINF [facility] Glucose [Mass/Vol] 180 mg/dL High 74 - 99 mg/dL [facility] Interpretation and review of laboratory results Abnormal [facility] Potassium [Moles/Vol] 4.0 mmol/L 3.7 - 5.3 mmol/L [facility] Sodium [Moles/Vol] 139 mmol/L 136 - 145 mmol/L [facility] Urea nitrogen [Mass/Vol] 46 mg/dL High 6 - 20 mg/dL [facility] CBC with Auto Differentialon 10-01-2024 Basophils (Bld) [#/Vol] 0.03 10*3/uL [facility] Basophils/100 WBC (Bld) 0 % 0 - 2 % [facility] Eosinophils (Bld) [#/Vol] 0.15 10*3/uL [facility] Eosinophils/100 WBC (Bld) 2 % 1 - 4 % [facility] Erythrocyte distribution width (RBC) [Ratio] 13.3 % 11.8 - 14.4 % [facility] Hematocrit (Bld) [Volume fraction] 26.0 % Low 40.7 - 50.3 % [facility] Hemoglobin (Bld) [Mass/Vol] 8.3 g/dL Low 13.0 - 17.0 g/dL [facility] Immature granulocytes (Bld) [#/Vol] 0.03 10*3/uL [facility] Immature granulocytes/100 WBC (Bld) 0 % 0 [facility] Interpretation and review of laboratory results Abnormal [facility] Lymphocytes/100 WBC (Bld) 16 % Low 24 - 43 % [facility] Lymphocytes/100 WBC (Bld) 1.14 % [facility] MCH (RBC) [Entitic mass] 28.7 pg 25.2 - 33.5 pg [facility] MCHC (RBC) [Mass/Vol] 31.9 g/dL 28.4 - 34.8 g/dL [facility] MCV (RBC) [Entitic vol] 90.0 fL 82.6 - 102.9 fL [facility] Monocytes/100 WBC (Bld) 8 % 3 - 12 % [facility] Monocytes/100 WBC (Bld) 0.58 % [facility] Neutrophils/100 WBC (Bld) 74 % High 36 - 65 % [facility] Nucleated RBC/100 WBC (Bld) [Ratio] 0.0 % 0.0 per 100 WBC [facility] Platelet mean volume (Bld) [Entitic vol] 10.9 fL 8.1 - 13.5 fL [facility] Platelets (Bld) [#/Vol] 180 10*3/uL [facility] RBC (Bld) [#/Vol] 2.89 10*6/uL Low 4.21 - 5.7 7 m/uL [facility] Segmented neutrophils/100 WBC (Bld) 5.40 % [facility] WBC other (Bld) [#/Vol] 7.3 [facility] CBC with Diffon 10-01-2024 Abs. Basophil 0.03 k/uL Normal 0.00-0.20 [facility] Comment on above: Performed By: #### C DP, BMPX, LIPR ####[address] [phone] Director: Ramiro Mark MD Abs.Imm.Granulocyte 0.03 k/uL Normal 0.00-0.30 [facility] Comment on above: Performed By: #### C DP, BMPX, LIPR ####[address] [phone] Director: Ramiro Mark MD Abs.Neutrophil (Seg) 5.40 k/uL Normal 1.50-8.10 [facility] Comment on above: Performed By: #### C DP, BMPX, LIPR ####[place], [place] [address])[phone] Director: Ramiro Mark MD Basophils/100 WBC (Bld) 0 % Normal 0-2 [facility] Comment on above: Performed By: #### C DP, BMPX, LIPR ####[place], [place] [address])[phone] Director: Ramiro Mark MD Eosinophils (Bld) [#/Vol] 0.15 10*3/uL Normal 0.00-0.44 [facility] Comment on above: Performed By: #### C DP, BMPX, LIPR ####[address] [address])[phone] Director: Ramiro Mark MD Eosinophils/100 WBC (Bld) 2 % Normal 1-4 [facility] Comment on above: Performed By: #### C DP, BMPX, LIPR ####[place], [place] [address])[phone] Director: Ramiro Mark MD Erythrocyte distribution width (RBC) [Ratio] 13.3 % Normal 11.8-14.4 [facility] Comment on above: Performed By: #### C DP, BMPX, LIPR ####[place], [place] [address])[phone] Director: Ramiro Mark MD Hematocrit (Bld) [Volume fraction] 26.0 % Low 40.7-50.3 [facility] Comment on above: Performed By: #### C DP, BMPX, LIPR ####[address] [address])[phone] Director: Ramiro Mark MD Hemoglobin (Bld) [Mass/Vol] 8.3 g/dL Low 13.0-17.0 [facility] Comment on above: Performed By: #### C DP, BMPX, LIPR ####[place], [place] [address])[phone] Director: Ramiro Mark MD Immature granulocytes/100 WBC (Bld) 0 % Normal 0 [facility] Comment on above: Performed By: #### C DP, BMPX, LIPR ####[place], [place] [address])[phone] Director: Ramiro Mark MD Lymphocytes (Bld) [#/Vol] 1.14 10*3/uL Normal 1.10-3.70 [facility] Comment on above: Performed By: #### C DP, BMPX, LIPR ####[place], [place] [address])[phone] Director: Ramiro Mark MD Lymphocytes/100 WBC (Bld) 16 % Low 24-43 [facility] Comment on above: Performed By: #### C DP, BMPX, LIPR ####[facility] [address] [place], [place] [address])[phone] Director: Ramiro Mark MD MCH (RBC) [Entitic mass] 28.7 pg Normal 25.2-33.5 [facility] Comment on above: Performed By: #### C DP, BMPX, LIPR ####[facility] [address] [place], [place] [phone] Director: Ramiro Mark MD MCHC (RBC) [Mass/Vol] 31.9 g/dL Normal 28.4-34.8 [facility] Comment on above: Performed By: #### C DP, BMPX, LIPR ####[facility] [address] [place] [address] [phone] Director: Ramiro Mark MD MCV (RBC) [Entitic vol] 90.0 fL Normal 82.6-102.9 [facility] Comment on above: Performed By: #### C DP, BMPX, LIPR ####[address] [phone] Director: Ramiro Mark MD Monocytes (Bld) [#/Vol] 0.58 10*3/uL Normal 0.10-1.20 [facility] Comment on above: Performed By: #### C DP, BMPX, LIPR ####[address] [phone] Director: Ramiro Mark MD Monocytes/100 WBC (Bld) 8 % Normal 3-12 [facility] Comment on above: Performed By: #### C DP, BMPX, LIPR ####[address] [phone] Director: Ramiro Mark MD Neutrophil (Seg) 74 % High 36-65 [facility] Comment on above: Performed By: #### C DP, BMPX, LIPR ####[facility] [address] [place] [address] [phone] Director: Ramiro Mark MD NRBC Automated 0.0 per 100 WBC Normal 0.0 [facility] Comment on above: Performed By: #### C DP, BMPX, LIPR ####[facility] [address] [place] [address] [phone] Director: Ramiro Mark MD Platelet mean volume (Bld) [Entitic vol] 10.9 fL Normal 8.1-13.5 [facility] Comment on above: Performed By: #### C DP, BMPX, LIPR ####[facility] [address] [place], [place] [phone] Director: Ramiro Mark MD Platelets (Bld) [#/Vol] 180 10*3/uL Normal 138-453 [facility] Comment on above: Performed By: #### C DP, BMPX, LIPR ####[facility] [address] [place], [place] [phone] Director: Ramiro Mark MD RBC (Bld) [#/Vol] 2.89 10*6/uL Low 4.21-5.77 [facility] Comment on above: Performed By: #### C DP, BMPX, LIPR ####[facility] [address] [place], [place] [phone] Director: Ramiro Mark MD WBC (Bld) [#/Vol] 7.3 10*3/uL Normal 3.5-11.3 [facility] Comment on above: Performed By: #### C DP, BMPX, LIPR ####[facility] [address] [place], [place] [phone] Director: Ramiro Mark MD Calcium, Ionicon 10-01-2024 Calcium [Moles/Vol] 1.13 mmol/L Normal 1.13-1.33 [facility] Comment on above: Performed By: #### I OCAL ####[facility] [address] [place] [address] [phone] Director: Ramiro Mark MD Calcium, Ionizedon Calcium.ionized (Bld) [Moles/Vol] 1.13 mmol/L 1.13 - 1.33 mmol/L [facility] Cult,Bloodon 10-01-2024 Cult,Blood Specimen Description [...] to and read back by:YECENIA JOHNSON RN, [facility], 09/29/24 0745, RB DJR Report Status FINAL 10/20/2024 SUSCEPTIBILITY Organism ENTEROCOCCUS AVIUM Method MARINE Ampicillin <=2 SUSCEPTIBLE Gentamicin,High Level SUSCEPTIBLE Streptomycin,Hi Level SUSCEPTIBLE Vancomycin <=0.5 SUSCEPTIBLE Susceptible [facility] Comment on above: Performed By: #### L ACTIC #### [facility] [address] [place] [address] Comparator Operator: Ramiro Santillan MD Electrophoresis Protein, Ser on 10-01-2024 Albumin % 55 % 45 - 65 % [facility] Albumin [Mass/Vol] 2.3 g/dL Low 3.2 - 5.2 g/dL [facility] Alpha 1 globulin Elph [Mass/Vol] 0.2 g/dL 0.1 - 0.4 g/dL [facility] Alpha 1 globulin Elph [Mass/Vol] 5 % 3 - 6 % [facility] Alpha 2 % 15 % High 6 - 13 % [facility] Alpha 2 globulin Elph [Mass/Vol] 0.6 g/dL 0.5 - 0.9 g/dL [facility] Beta globulin Elph [Mass/Vol] 0.6 g/dL 0.5 - 1.1 g/dL [facility] Beta globulin Elph [Mass/Vol] 13 % 11 - 19 % [facility] Gamma Globulin % 12 % 9 - 20 % [facility] Gamma globulin Elph [Mass/Vol] 0.5 g/dL 0.5 - 1.5 g/dL [facility] Interpretation and review of laboratory results Abnormal [facility] Pathologist Cyto stain Nom (Cvx/Vag) [ID] ELECTRONICALLY SIGNED. DARLEEN LACY M.D. [facility] Protein [Mass/Vol] 4.2 g/dL Low 6.6 - 8.7 g/dL [facility] Protein Fractions [Interp] Albumin is decreased. May be observed with hepatic diseases, proteinuria, malnutrition, acute phase response, and hemodilution. Gammaglobulins are low normal. [facility] Total Prot. Sum 4.2 g/dL Low 6.3 - 8.2 g/dL [facility] Total Prot. Sum,% 100 % 98 - 102 % [facility] Glucose (POC)on 10-01-2024 Glucose [Mass/Vol] 180 mg/dL High 74-100 [facility] Glucose,Whole Bloodon 2023 Glucose [Mass/Vol] 126 mg/dL High 75-110 [facility] Glucose [Mass/Vol] 129 mg/dL High 75-110 [facility] Glucose [Mass/Vol] 125 mg/dL High 75-110 [facility] Glucose [Mass/Vol] 142 mg/dL High 75-110 [facility] Glucose [Mass/Vol] 548 mg/dL Critically high 75-110 [facility] Glucose [Mass/Vol] 141 mg/dL High 75-110 [facility] Glucose [Mass/Vol] 154 mg/dL High 75-110 [facility] Lipid Panelon 10-01-2024 Cholesterol [Mass/Vol] 177 mg/dL 0 - 1 99 mg/dL [facility] Cholesterol in HDL [Mass/Vol] 49 mg/dL 40 - PINF mg/dL [facility] Cholesterol in LDL [Mass/Vol] 85 mg/dL 0 - 100 mg/dL [facility] Cholesterol in VLDL [Mass/Vol] 43 mg/dL High 1 - 30 mg/dL [facility] Cholesterol.total/Chol esterol in HDL [Mass ratio] 3.6 {ratio} [facility] Interpretation and review of laboratory results Abnormal [facility] Triglyceride [Mass/Vol] 213 mg/dL High NINF - 150 mg/dL [facility] Lipid Profileon 10-01-2024 Cholesterol [Mass/Vol] 177 mg/dL Normal 0-199 [facility] Comment on above: Result Comment: Chol esterol Guidelines: <200 Desirable 200-240 Borderline >240 Undesirable Performed By: #### C DP, BMPX, LIPR ####[facility] [address] [place] [address] Lab Director: Ramiro Mark MD Cholesterol in HDL [Mass/Vol] 49 mg/dL Normal >40 [facility] Comment on above: Result Comment: HDL Guidelines: <40 Undesirable 40-59 Borderline >59 Desirable Performed By: #### C DP, BMPX, LIPR ####[facility] [address] [place], [place] [id number] Lab Director: Ramiro Mark MD Cholesterol in LDL [Mass/Vol] 85 mg/dL Normal 0-100 [facility] Comment on above: Result Comment: LDL Guidelines: <100 Desirable 100-129 Near to/above Desirable 130-159 Borderline >159 UndesirableDirect (measured) LDL and calculated LDL are not interchangeable tests. Performed By: #### C DP, BMPX, LIPR ####[facility] [address] [place] [address] [id number] Lab Director: Ramiro Mark MD Cholesterol in VLDL [Mass/Vol] 43 mg/dL High 1-30 [facility] Comment on above: Performed By: #### C DP, BMPX, LIPR ####[facility] [address] [place] [address] Lab Director: Ramiro Mark MD Cholesterol.total/Chol esterol in HDL [Mass ratio] 3.6 {ratio} Normal [facility] Comment on above: Performed By: #### C DP, BMPX, LIPR ####[facility] [address] [place] [address] Lab Director: Ramiro Mark MD Triglyceride [Mass/Vol] 213 mg/dL High <150 [facility] Comment on above: Result Comment: Trig lyceride Guidelines: <150 Desirable 150- 199 Borderline 200-499 High >499 Very high Based on AHA Guidelines for fasting triglyceride, July 2012. Performed By: #### C DP, BMPX, LIPR ####[facility] [address] [place] [address] Lab Director: Ramiro Mark MD MYCOPLASMA PNEUMONIAE ANTIBO DY, IGMon 10-01-2024 M. pneumoniae IgM IA Ql (S) 0.22 NINF - 0.91 [facility] Mycoplasma Ab, IgMon 024 Mycoplasma Ab, IgM 0.22 Normal <0.91 [facility] Comment on above: Result Comment: Refe rence Range:<=0.90 Negative0.91-1.09 Equivocal>=1.10 Positive Performed By: #### A GLYCO ####[facility] [address] [place] [address] Lab Director: Wil Swanson MD#### SED, PRCAL, MYCM, CDP, BMPX, TROPI, GLYHGB, IOCAL, LACTIC, CRP ####[facility] [address] [place] [address] Lab Director: Ramiro Mark MD No Panel Informationon 10-01 Interpretation and review of laboratory results Abnormal [facility] Interpretation and review of laboratory results Abnormal [facility] POC Glucose Fingerstickon Glucose [Mass/Vol] 126 mg/dL High 75 - 110 mg/dL [facility] Interpretation and review of laboratory results Abnormal [facility] Glucose [Mass/Vol] 129 mg/dL High 75 - 110 mg/dL [facility] Interpretation and review of laboratory results Abnormal [facility] Glucose [Mass/Vol] 125 mg/dL High 75 - 110 mg/dL [facility] Interpretation and review of laboratory results Abnormal [facility] Glucose [Mass/Vol] 142 mg/dL High 75 - 110 mg/dL [facility] Interpretation and review of laboratory results Abnormal [facility] Glucose [Mass/Vol] 548 mg/dL Critically high 75 - 1 10 mg/dL [facility] Glucose [Mass/Vol] 141 mg/dL High 75 - 110 mg/dL [facility] Glucose [Mass/Vol] 154 mg/dL High 75 - 110 mg/dL [facility] Interpretation and review of laboratory results Abnormal [facility] POCT Glucoseon 10-01-2024 Glucose [Mass/Vol] 180 mg/dL High 74 - 100 mg/dL [facility] Prot. Electroph, Blon 2023 Pathologist Review: ELECTRONICALLY ALEX LACY M.D. Normal [facility] Comment on above: Performed By: #### F KLLC, PE, ANAX, PHEP, MG, CHELO, BMP ####[facility] [address] [place], [place] [id number] lab Director: Ramiro Mark MD Albumin [Mass/Vol] 2.3 g/dL Low 3.2-5.2 [facility] Comment on above: Performed By: #### F KLLC, PE, ANAX, PHEP, MG, CHELO, BMP ####[facility] [address] [place] [address] Lab Director: Ramiro Mark MD Albumin, % 55 % Normal 45-65 [facility] Comment on above: Performed By: #### F KLLC, PE, ANAX, PHEP, MG, CHELO, BMP ####[facility] [address] [place] [address] lab Director: Ramiro Mark MD Gnkbu-0-szyltqgmi 0.2 g/dL Normal 0.1-0.4 [facility] Comment on above: Performed By: #### F KLLC, PE, ANAX, PHEP, MG, CHELO, BMP ####[facility] [address] [place] [address] Lab Director: Ramiro Mark MD Yucxw-4-dkcrlkzux,% 5 % Normal 3-6 [facility] Comment on above: Performed By: #### F KLLC, PE, ANAX, PHEP, MG, CHELO, BMP ####[facility] [address] [place] [address] Lab Director: Ramiro Mark MD Jddpa-6-mxjdwimnx 0.6 g/dL Normal 0.5-0.9 [facility] Comment on above: Performed By: #### F KLLC, PE, ANAX, PHEP, MG, CHELO, BMP ####[facility] [address] [place] [address] Lab Director: Ramiro Mark MD Hsfbw-6-azdujthsh,% 15 % High 6-13 [facility] Comment on above: Performed By: #### F KLLC, PE, ANAX, PHEP, MG, CHELO, BMP ####[facility] [address] [place] [address] Lab Director: Ramiro Mark MD Beta-globulins 0.6 g/dL Normal 0.5-1.1 [facility] Comment on above: Performed By: #### F KLLC, PE, ANAX, PHEP, MG, CHELO, BMP ####[facility] [address] [place] [address] Lab Director: Ramiro Mark MD Beta-globulins,% 13 % Normal 11-19 [facility] Comment on above: Performed By: #### F KLLC, PE, ANAX, PHEP, MG, CHELO, BMP ####[facility] [address] [place], [place] [phone] Director: Ramiro Mark MD Gamma-globulins 0.5 g/dL Normal 0.5-1.5 [facility] Comment on above: Performed By: #### F KLLC, PE, ANAX, PHEP, MG, CHELO, BMP ####[facility] [address] [place], [place] [phone] Director: Ramiro Mark MD Gamma-globulins,% 12 % Normal 9-20 [facility] Comment on above: Performed By: #### F KLLC, PE, ANAX, PHEP, MG, CHELO, BMP ####[address] [address] Lab Director: Ramiro Mark MD Prot. Elect-Interp Albumin is decreased . May be observed with hepatic diseases, proteinuria, Normal [facility] Comment on above: Result Comment: maln utrition, acute phase response, and hemodilution. Gammaglobulins are low normal. Performed By: #### F KLLC, PE, ANAX, PHEP, MG, CHELO, BMP ####[facility] [address] [place] [address] Lab Director: Ramiro Mark MD Total Prot. Sum 4.2 g/dL Low 6.3-8.2 [facility] Comment on above: Performed By: #### F KLLC, PE, ANAX, PHEP, MG, CHELO, BMP ####[facility] [address] [place] [address] lab Director: Ramiro Mark MD Total Prot. Sum,% 100 % Normal 98-102 [facility] Comment on above: Performed By: #### F KLLC, PE, ANAX, PHEP, MG, CHELO, BMP ####[facility] [address] [place], [place] [id number] lab Director: Ramiro Mark MD Prot. Electrophoresis, Uron 10-01-2024 Total Protein Conc. 100 mg/dL Normal [facility] Comment on above: Performed By: #### U RCL, URNA, UPE, URTPRT ####[facility] [address] [place], [place] [phone] lab Director: Ramiro Mark MD Arterial Bld Gas,POCon 09-30 Jody Test Positive Normal [facility] FIO2 30.0 [facility] HCO3 (Bld) [Moles/Vol] 24.4 mmol/L Normal 21.0-28.0 M [facility] Mode of Delivery PRVC Normal [facility] O2 Device Adult Ventilator Normal [facility] Oxygen saturation in Blood 99.4 % High 94.0-98.0 [facility] pCO2, Arterial 36.0 mm Hg Normal 35.0-48.0 [facility] pH, Arterial 7.439 Normal 7.350-7.450 [facility] pO2, Arterial 152.9 mm Hg High 83.0-108.0 [facility] Positive Base Excess (calc) 0.3 mmol/L Normal 0.0-3.0 [facility] Site Drawn Left Radial Artery Normal [facility] Arterial Blood Gas, POCon Jody Test Positive [facility] [facility] Incentive Targeting FIO2 30.0 [facility] Incentive Targeting HCO3 (Bld) [Moles/Vol] 24.4 mmol/L 21.0 - 28.0 mmol/L [facility] Incentive Targeting Mode PRVC Bon [facility] Incentive Targeting O2 Delivery Device Adult Ventilator Bon [facility] Oxygen saturation in Blood 99.4 % High 94.0 - 98.0 % [facility] POC pCO2 36.0 [facility] POC pH 7.439 7.350 - 7.450 [facility] POC PO2 152.9 High [facility] Positive Base Excess, Art 0.3 mmol/L 0.0 - 3.0 mmol/L [facility] Sample Site Left Radial Artery Sharon S [facility] Basic Metab w/rfx MGon 09-30 Anion gap [Moles/Vol] 12 mmol/L Normal 9-16 [facility] Comment on above: Performed By: #### C DP, C3, C4, BMPX ####[address] [place], [place] [address])[phone] Director: Ramiro Mark MD Calcium [Mass/Vol] 7.8 mg/dL Low 8.6-10.4 [facility] Comment on above: Performed By: #### C DP, C3, C4, BMPX ####[facility] [address] [place], [place] [address])[phone] Director: Ramiro Mark MD Chloride [Moles/Vol] 101 mmol/L Normal 98-107 [facility] Comment on above: Performed By: #### C DP, C3, C4, BMPX ####[facility] [address] [place] [address] Lab Director: Ramiro Mark MD CO2 [Moles/Vol] 19 mmol/L Low 20-31 [facility] Comment on above: Performed By: #### C DP, C3, C4, BMPX ####[facility] [address] [place], [place] [address])[phone] Director: Ramiro Mark MD Creatinine [Mass/Vol] 2.5 mg/dL High 0.7-1.2 [facility] Comment on above: Performed By: #### C DP, C3, C4, BMPX ####[address] [address])[phone] Director: Ramiro Mark MD GFR/1.73 sq M.predicted among non-blacks MDRD (S/P/Bld) [Vol rate/Area] 31 mL/min/{1.73_m2} Low >60 [facility] Comment on above: Result Comment: Thes e [...] tubular secretion. Performed By: #### C DP, C3, C4, BMPX ####[address] [address])[phone] Director: Ramiro Mark MD Glucose [Mass/Vol] 233 mg/dL High 74-99 [facility] Comment on above: Performed By: #### C DP, C3, C4, BMPX ####[address] [address])[phone] Director: Ramiro Mark MD Potassium [Moles/Vol] 4.3 mmol/L Normal 3.7-5.3 [facility] Comment on above: Performed By: #### C DP, C3, C4, BMPX ####[address] [address])[phone] Director: Ramiro Mark MD Sodium [Moles/Vol] 132 mmol/L Low 136-145 [facility] Comment on above: Performed By: #### C DP, C3, C4, BMPX ####[address] [address])[phone] Director: Ramiro Mark MD Urea nitrogen [Mass/Vol] 47 mg/dL High 6-20 [facility] Comment on above: Performed By: #### C DP, C3, C4, BMPX ####[email or web address] [address] [place] [address] Lab Director: Ramiro Mark MD Basic Metabolic Panel w/ Ref jose to MGon 09-30-2024 Anion gap [Moles/Vol] 12 mmol/L 9 - 16 mmol/L [facility] Calcium [Mass/Vol] 7.8 mg/dL Low 8.6 - 10. 4 mg/dL [facility] Chloride [Moles/Vol] 101 mmol/L 98 - 10 7 mmol/L [facility] CO2 [Moles/Vol] 19 mmol/L Low 20 - 31 mmol/L [facility] Creatinine [Mass/Vol] 2.5 mg/dL High 0.7 - 1.2 mg/dL [facility] Est, Glom Filt Rate 31 Low - PINF [facility] Glucose [Mass/Vol] 233 mg/dL High 74 - 99 mg/dL [facility] Interpretation and review of laboratory results Abnormal [facility] Potassium [Moles/Vol] 4.3 mmol/L 3.7 - 5.3 mmol/L [facility] Sodium [Moles/Vol] 132 mmol/L Low 136 - 145 mmol/L [facility] Urea nitrogen [Mass/Vol] 47 mg/dL High 6 - 20 mg/dL [facility] C3on 09-30-2024 C3 117 mg/dL Normal 90-180 [facility] Comment on above: Performed By: #### C DP, C3, C4, BMPX ####[email or web address] [address] [place], [place] [id number] Lab Director: Ramiro Mark MD C3 Complementon 09-30-2024 Complement C3 [Mass/Vol] 117 mg/dL 90 - 180 mg/dL [facility] C4on 09-30-2024 C4 22 mg/dL Normal 10-40 [facility] Comment on above: Performed By: #### C DP, C3, C4, BMPX ####[facility] [address] [place] [address] lab Director: Ramiro Mark MD C4 Complementon 09-30-2024 Complement C4 [Mass/Vol] 22 mg/dL 10 - 40 mg/dL [facility] CBC with Auto Differentialon 09-30-2024 Basophils (Bld) [#/Vol] 0.04 10*3/uL [facility] Basophils/100 WBC (Bld) 0 % 0 - 2 % [facility] Eosinophils (Bld) [#/Vol] 0.06 10*3/uL [facility] Eosinophils/100 WBC (Bld) 1 % 1 - 4 % [facility] Erythrocyte distribution width (RBC) [Ratio] 13.3 % 11.8 - 14.4 % [facility] Hematocrit (Bld) [Volume fraction] 26.2 % Low 40.7 - 50.3 % [facility] Hemoglobin (Bld) [Mass/Vol] 8.4 g/dL Low 13.0 - 17.0 g/dL [facility] Immature granulocytes (Bld) [#/Vol] 0.06 10*3/uL [facility] Immature granulocytes/100 WBC (Bld) 1 % High 0 [facility] Interpretation and review of laboratory results Abnormal [facility] Lymphocytes/100 WBC (Bld) 12 % Low 24 - 43 % [facility] Lymphocytes/100 WBC (Bld) 1.51 % [facility] MCH (RBC) [Entitic mass] 28.9 pg 25.2 - 33.5 pg [facility] MCHC (RBC) [Mass/Vol] 32.1 g/dL 28.4 - 34.8 g/dL [facility] MCV (RBC) [Entitic vol] 90.0 fL 82.6 - 102.9 fL [facility] Monocytes/100 WBC (Bld) 6 % 3 - 12 % [facility] Monocytes/100 WBC (Bld) 0.77 % [facility] Neutrophils/100 WBC (Bld) 81 % High 36 - 65 % [facility] Nucleated RBC/100 WBC (Bld) [Ratio] 0.0 % 0.0 per 100 WBC [facility] Platelet mean volume (Bld) [Entitic vol] 10.9 fL 8.1 - 13.5 fL [facility] Platelets (Bld) [#/Vol] 186 10*3/uL [facility] RBC (Bld) [#/Vol] 2.91 10*6/uL Low 4.21 - 5.7 7 m/uL [facility] Segmented neutrophils/100 WBC (Bld) 10.11 % High [facility] WBC other (Bld) [#/Vol] 12.6 High [facility] CBC with Diffon 09-30-2024 Abs. Basophil 0.04 k/uL Normal 0.00-0.20 [facility] Comment on above: Performed By: #### C DP, C3, C4, BMPX ####[facility] [address] [place], [place] [address])[phone] Director: Ramiro Mark MD Abs.Imm.Granulocyte 0.06 k/uL Normal 0.00-0.30 [facility] Comment on above: Performed By: #### C DP, C3, C4, BMPX ####[facility] [address] [place], [place] [address])[phone] Director: Ramiro Mark MD Abs.Neutrophil (Seg) 10.11 k/uL High 1.50-8.10 [facility] Comment on above: Performed By: #### C DP, C3, C4, BMPX ####[facility] [address] [place] [address] Lab Director: Ramiro Mark MD Basophils/100 WBC (Bld) 0 % Normal 0-2 [facility] Comment on above: Performed By: #### C DP, C3, C4, BMPX ####[facility] HospitalPacer ElectronicsVwxqhyxkkhbh[address] [place], [place] [address])[phone] Director: Ramiro Mark MD Eosinophils (Bld) [#/Vol] 0.06 10*3/uL Normal 0.00-0.44 [facility] Comment on above: Performed By: #### C DP, C3, C4, BMPX ####[place] [address] Lab Director: Ramiro Mark MD Eosinophils/100 WBC (Bld) 1 % Normal 1-4 [facility] Comment on above: Performed By: #### C DP, C3, C4, BMPX ####[place], [place] [address])[phone] Director: Ramiro Mark MD Erythrocyte distribution width (RBC) [Ratio] 13.3 % Normal 11.8-14.4 [facility] Comment on above: Performed By: #### C DP, C3, C4, BMPX ####[place], [place] [address])[phone] Director: Ramiro Mark MD Hematocrit (Bld) [Volume fraction] 26.2 % Low 40.7-50.3 [facility] Comment on above: Performed By: #### C DP, C3, C4, BMPX ####[place], [place] [address])[phone] Director: Ramiro Mark MD Hemoglobin (Bld) [Mass/Vol] 8.4 g/dL Low 13.0-17.0 [facility] Comment on above: Performed By: #### C DP, C3, C4, BMPX ####[place], [place] [address])[phone] Director: Ramiro Mark MD Immature granulocytes/100 WBC (Bld) 1 % High 0 [facility] Comment on above: Performed By: #### C DP, C3, C4, BMPX ####[place], [place] [address])[phone] Director: Ramiro Mark MD Lymphocytes (Bld) [#/Vol] 1.51 10*3/uL Normal 1.10-3.70 [facility] Comment on above: Performed By: #### C DP, C3, C4, BMPX ####[place], [place] [address])[phone] Director: Ramiro Mark MD Lymphocytes/100 WBC (Bld) 12 % Low 24-43 [facility] Comment on above: Performed By: #### C DP, C3, C4, BMPX ####[place], [place] [address])[phone] Director: Ramiro Mark MD MCH (RBC) [Entitic mass] 28.9 pg Normal 25.2-33.5 [facility] Comment on above: Performed By: #### C DP, C3, C4, BMPX ####[place], [place] [address])[phone] Director: Ramiro Mark MD MCHC (RBC) [Mass/Vol] 32.1 g/dL Normal 28.4-34.8 [facility] Comment on above: Performed By: #### C DP, C3, C4, BMPX ####[place], [place] [address])[phone] Director: Ramiro Mark MD MCV (RBC) [Entitic vol] 90.0 fL Normal 82.6-102.9 [facility] Comment on above: Performed By: #### C DP, C3, C4, BMPX ####[place], [place] [address])[phone] Director: Ramiro Mark MD Monocytes (Bld) [#/Vol] 0.77 10*3/uL Normal 0.10-1.20 [facility] Comment on above: Performed By: #### C DP, C3, C4, BMPX ####[place], [place] [address])[phone] Director: Ramiro Mark MD Monocytes/100 WBC (Bld) 6 % Normal 3-12 [facility] Comment on above: Performed By: #### C DP, C3, C4, BMPX ####[address] [phone] Director: Ramiro Mark MD Neutrophil (Seg) 81 % High 36-65 [facility] Comment on above: Performed By: #### C DP, C3, C4, BMPX ####[address] [phone] Director: Ramiro Mark MD NRBC Automated 0.0 per 100 WBC Normal 0.0 [facility] Comment on above: Performed By: #### C DP, C3, C4, BMPX ####[address] [phone] Director: Ramiro Mark MD Platelet mean volume (Bld) [Entitic vol] 10.9 fL Normal 8.1-13.5 [facility] Comment on above: Performed By: #### C DP, C3, C4, BMPX ####[address] [phone] Director: Ramiro Mark MD Platelets (Bld) [#/Vol] 186 10*3/uL Normal 138-453 [facility] Comment on above: Performed By: #### C DP, C3, C4, BMPX ####[address] [phone] Director: Ramiro Mark MD RBC (Bld) [#/Vol] 2.91 10*6/uL Low 4.21-5.77 [facility] Comment on above: Performed By: #### C DP, C3, C4, BMPX ####[address] [phone] Director: Ramiro Makr MD WBC (Bld) [#/Vol] 12.6 10*3/uL High 3.5-11.3 [facility] Comment on above: Performed By: #### C DP, C3, C4, BMPX ####[address] [address] lab Director: Ramiro Mark MD Calcium, Ionicon 09-30-2024 Calcium [Moles/Vol] 1.20 mmol/L Normal 1.13-1.33 [facility] Comment on above: Performed By: #### I OCAL ####[address] [address] Lab Director: Ramiro Mark MD Calcium, Ionizedon 4 Calcium.ionized (Bld) [Moles/Vol] 1.20 mmol/L 1.13 - 1.33 mmol/L [facility] Chloride, Random Urineon Chloride (U) [Moles/Vol] mmol/L mmol/L [facility] Chloride,Random Uron 024 Cl Conc. <20 Normal [facility] Comment on above: Result Comment: No n ormal range established. Performed By: #### U RCL, URNA, UPE, URTPRT ####[address] [address] Lab Director: Ramiro Mark MD Cult,Respiratoryon 4 Cult,Respiratory Abnormal [facility] Comment on above: Performed By: #### R ESPC ####[address] [address] Lab Director: Ramiro Mark MD Culture, Respiratoryon 09-30 Interpretation and review of laboratory results Abnormal [facility] Microorganism identified Cx Nom (Unsp spec) NORMAL RESPIRATORY AYDEN LIGHT GROWTH [facility] Microorganism or agent identified Nom (Unsp spec) < 10 EPITHELIAL CELLS/LPF [facility] Microorganism or agent identified Nom (Unsp spec) >10, <25 NEUTROPHILS/LPF [facility] Microorganism or agent identified Nom (Unsp spec) Positive Abnormal [facility] Service comment (Unsp spec) [Interp] Site: Respiratory specimen [facility] Specimen Description .TRACHEAL ASPIRATE [facility] Free Muddy + Lambdaon 2023 Free Muddy Lt Chains 41.5 mg/L High <20.7 [facility] Comment on above: Result Comment: Perf ormed using Diazyme reagent on Jaime Moira Pro. Results obtained with different assay methods cannot be used interchangeably. Performed By: #### F KLLC, PE, ANAX, PHEP, MG, CHELO, BMP ####[address] [place], [place] [address] Lab Director: Ramiro Mark MD Free Muddy/Lambda Rat 1.17 Normal 0.22-1.74 [facility] Comment on above: Performed By: #### F KLLC, PE, ANAX, PHEP, MG, CHELO, BMP ####[email or web address] [address] [place], [place] [id number] Lab Director: Ramiro Mark MD Free Lambda Lt Chains 35.6 mg/L High 4.2-27.7 [facility] Comment on above: Result Comment: Perf ormed using Diazyme reagent on [employer] Pro. Results obtained with different assay methods cannot be used interchangeably. Performed By: #### F KLLC, PE, ANAX, PHEP, MG, CHELO, BMP ####[email or web address] [address] [place], [place] [id number] Lab Director: Ramior Mark MD GLYCOSYLATED HGBon 4 Estimated Avg Glucose >427 mg/dL [facility] HbA1c (Bld) [Mass fraction] % High NINF - 5.6 % [facility] Interpretation and review of laboratory results Abnormal [facility] Glucose (POC)on 09-30-2024 Glucose [Mass/Vol] 242 mg/dL High 74-100 [facility] Glucose,Whole Bloodon 2023 Glucose [Mass/Vol] 170 mg/dL High 75-110 [facility] Glucose [Mass/Vol] 176 mg/dL High 75-110 [facility] Glucose [Mass/Vol] 202 mg/dL High 75-110 [facility] Glucose [Mass/Vol] 258 mg/dL High 75-110 [facility] Glycosylated HgBon [address] Glucose >427 Normal [facility] Comment on above: Result Comment: (NOT E)Performed By: [employer] [place], [place] [address]Pbuqtiksjz Director: Rogelio Miranda MD, PhDCLIA Number: [id number] Performed By: #### A GLYCO ####[employer] [place] [address] Lab Director: Wil Swanson MD#### SED, PRCAL, MYCM, CDP, BMPX, TROPI, GLYHGB, IOCAL, LACTIC, CRP ####[email or web address] [address] [place] [address] lab Director: Ramiro Mark MD HbA1c (Bld) [Mass fraction] % High <=5.6 [facility] Comment on above: Result Comment: (NOT E)INTERPRETIVE INFORMATION: Hemoglobin [id number] values of 5.7-6.4 percent indicate an increased risk fordeveloping diabetes mellitus. HbA1c values greater than or equalto 6.5 percent are diagnostic of diabetes mellitus. For diagnosisof diabetes in individuals without unequivocal hyperglycemia,results should be confirmed by repeat testing. Performed By: #### A GLYCO ####[employer] [place] [address] lab Director: Wil Swanson MD#### SED, PRCAL, MYCM, CDP, BMPX, TROPI, GLYHGB, IOCAL, LACTIC, CRP ####[facility] [address] [place] [address] lab Director: Ramiro Mark MD Hepatitis Acute [facility] 09-30 Hep A Ab,IgM Non-Reactive Normal NR [facility] Comment on above: Performed By: #### F KLLC, PE, ANAX, PHEP, MG, CHELO, BMP ####[facility] [address] [place], [place] [phone] lab Director: Ramiro Mark MD Hep B Core Ab,IgM Non-Reactive Normal NR [facility] Comment on above: Performed By: #### F KLLC, PE, ANAX, PHEP, MG, CHELO, BMP ####[facility] [address] [place], [place] [phone] lab Director: Ramiro Mark MD Hep B Surf Ag Non-Reactive Normal [facility] Comment on above: Performed By: #### F KLLC, PE, ANAX, PHEP, MG, CHELO, BMP ####[facility] [address] [place], [place] [id number] lab Director: Ramiro Mark MD Hep C Ab Non-Reactive Normal [facility] Comment on above: Result Comment: The [...] HCV RNA by PCR. Performed By: #### F KLLC, PE, ANAX, PHEP, MG, CHELO, BMP ####[facility] [address] [place], [place] [phone] lab Director: Ramiro Mark MD Hepatitis Panel, Acute HAV IgM IA Ql Non-Reactive NONREACTIVE [facility] HBV core IgM IA Ql Non-Reactive NONREACTIVE [facility] HBV surface Ag IA Ql Non-Reactive NONREACTIVE [facility] HCV Ab IA Ql Non-Reactive NONREACTIVE [facility] Muddy/Lambda Quantitative Fr ee Light Chains, Serumon 09-30-2024 Free Muddy/Lambda Ratio 1.17 0.22 - 1.74 [facility] Immunoglobulin light chains.kappa.free (S) [Mass/Vol] 41.5 mg/L High NINF - 20.7 mg/L [facility] Immunoglobulin light chains.lambda.free [Mass/Vol] 35.6 mg/L High 4.2 - 27.7 mg/L [facility] Interpretation and review of laboratory results Abnormal [facility] Lactic Acid (POC)on 09-30-20 24 Lactate [Moles/Vol] 0.8 mmol/L Normal 0.56-1.39 [facility] Lactic Acid, POCon 4 POC Lactic Acid 0.8 mmol/L 0.56 - 1.39 mmol/L [facility] MR Brain WO contraston 09-30 PN RIS [facility]ATED [facility] [place] RIS CONSOLIDATED [facility] Radiology Study observation (narrative) [facility] MR Brain WO contrastOrdered By: Jeffery Smalls on 09-30-2024 [facility] Work Phone: MRI BRAIN WO CONTRASTon 09-16 MRI BRAIN WO CONTRAST Normal [facility] Microscopic Urinalysison Bacteria LM Ql (Urine sed) None None [facility] Casts LM.LPF (Urine sed) [#/Area] 10 TO 20 HYALINE Reference range defined for non-centrifuged specimen. [facility] Epithelial cells LM.HPF (Urine sed) [#/Area] 5 TO 10 [facility] RBC LM.HPF (Urine sed) [#/Area] 10 TO 20 [facility] WBC LM.HPF (Urine sed) [#/Area] 5 TO 10 [facility] No Panel Informationon 09-30 [facility] Interpretation and review of laboratory results Abnormal [facility] POC Glucose Fingerstickon 12 -15-2024 Glucose [Mass/Vol] 170 mg/dL High 75 - 110 mg/dL [facility] Interpretation and review of laboratory results Abnormal [facility] Glucose [Mass/Vol] 176 mg/dL High 75 - 110 mg/dL [facility] Interpretation and review of laboratory results Abnormal [facility] Glucose [Mass/Vol] 202 mg/dL High 75 - 110 mg/dL [facility] Interpretation and review of laboratory results Abnormal [facility] Glucose [Mass/Vol] 258 mg/dL High 75 - 110 mg/dL [facility] Interpretation and review of laboratory results Abnormal [facility] POCT Glucoseon 09-30-2024 Glucose [Mass/Vol] 242 mg/dL High 74 - 100 mg/dL [facility] Prot. Electroph, Blon 2023 Protein [Mass/Vol] 4.2 g/dL Low 6.6-8.7 [facility] Comment on above: Performed By: #### F KLLC, PE, ANAX, PHEP, MG, CHELO, BMP ####[facility] [address] [place] [phone] Lab Director: Ramiro Mark MD Prot. Electrophoresis, Uron 09-30-2024 Type of Specimen .URINE Normal [facility] Comment on above: Performed By: #### U RCL, URNA, UPE, URTPRT ####[facility] [address] [place] [phone] lab Director: Ramiro Mark MD Protein / creatinine ratio, urineon 09-30-2024 Creatinine (U) [Mass/Vol] 41.2 mg/dL 39.0 - 259.0 mg/dL [facility] Interpretation and review of laboratory results Abnormal [facility] Protein (U) [Mass/Vol] 100 mg/dL Trip [facility] Urine Total Protein Creatinine Ratio 2.43 High 0.00 - 0.20 [facility] Protein,Tot,[place] Uron 2023 Creatinine [Mass/Vol] 41.2 mg/dL Normal 39.0-259.0 [facility] Comment on above: Performed By: #### U RCL, URNA, UPE, URTPRT ####[facility] [address] [place], [place] [phone] Director: Ramiro Mark MD Tot Prot. Conc. 100 mg/dL Normal [facility] Comment on above: Result Comment: No n ormal range established. Performed By: #### U RCL, URNA, UPE, URTPRT ####[facility] [address] [place] [address] Lab Director: Ramiro Mark MD TP/Cre Ratio 2.43 High 0.00-0.20 [facility] Comment on above: Performed By: #### U RCL, URNA, UPE, URTPRT ####[facility] [address] [place] [address] Lab Director: Ramiro Mark MD Sodium, Random Uron 09-30-20 24 Na Conc. Urine <20 Normal [facility] Comment on above: Result Comment: No n ormal range established. Performed By: #### U RCL, URNA, UPE, URTPRT ####[address] [address] Lab Director: Ramiro Mark MD Sodium, urine, randomon 09-16 Sodium (U) [Moles/Vol] mmol/L mmol/L Trip n [facility] UA w/Reflex Cultureon 2023 Bilirubin, SemiQt,Ur Negative Normal NEG [facility] Comment on above: Performed By: #### U MICAO, UAX ####[facility] [address] [place] [address] Lab Director: Ramiro Mark MD Blood, Urine MODERATE Abnormal NEG [facility] Comment on above: Performed By: #### U MICAO, UAX ####[facility] [address] [place], [place] [phone] Director: Ramiro Mark MD Clarity (U) Cloudy Abnormal CLEAR [facility] Comment on above: Performed By: #### U MICAO, UAX ####[facility] [address] [place] [address] Lab Director: Ramiro Mark MD Color (U) Yellow Normal YEL [facility] Comment on above: Performed By: #### U MICAO, UAX ####[facility] [address] [place], [place] [phone] Director: Ramiro Mark MD Glucose Ql (U) 3+ mg/dL Abnormal NEG [facility] Comment on above: Performed By: #### U MICAO, UAX ####[facility] [address] [place] [address] [phone] Director: Ramiro Mark MD Ketones Ql (U) Negative Normal NEG [facility] Comment on above: Performed By: #### U MICAO, UAX ####[facility] [address] [place] [address] [phone] Director: Ramiro Mark MD Leukocyte esterase Test strip Ql (U) Negative Normal NEG [facility] Comment on above: Performed By: #### U MICAO, UAX ####[facility] [address] [place], [place] [phone] Director: Ramiro Mark MD Nitrite,Ur Negative Normal NEG [facility] Comment on above: Performed By: #### U MICAO, UAX ####[facility] [address] [place], [place] [phone] Director: Ramiro Mark MD PH,Ur 5.0 Normal 5.0-8.0 [facility] Comment on above: Performed By: #### U MICAO, UAX ####[facility] [address] [place] [address] Lab Director: Ramiro Mark MD Protein Ql (U) 3+ mg/dL Abnormal NEG [facility] Comment on above: Performed By: #### U MICAO, UAX ####[facility] [address] [place] [address] lab Director: Ramiro Mark MD Spec. [place],Ur 1.027 Normal 1.005-1.030 [facility] Comment on above: Performed By: #### U MICAO, UAX ####[facility] [address] [place] [address] lab Director: Ramiro Mark MD Urobilinogen,Ur Normal Normal 0.0-1.0 [facility] Comment on above: Performed By: #### U MICAO, UAX ####[facility] [address]rsdhsrnbf[address] [place] [address] lab Director: Ramiro Mark MD Urinalysis with Reflex to Cu ltureon 09-30-2024 Bilirubin Ql (U) Negative NEGATIVE [facility] Incentive Targeting Clarity (U) Cloudy Abnormal Clear [facility] Color (U) Yellow Yellow [facility] Glucose Test strip (U) [Mass/Vol] 3+ Abnormal NEGATIVE mg/dL [facility] Hemoglobin Auto test strip Ql (U) MODERATE Abnormal NEGATIVE [facility] Interpretation and review of laboratory results Abnormal [facility] Ketones (U) [Mass/Vol] Negative NEGAT RAJAN mg/dL [facility] Leukocyte esterase Test strip Ql (U) Negative NEGATIVE [facility] Nitrite Ql (U) Negative NEGATIVE [facility] pH (U) 5.0 [pH] 5.0 - 8.0 [facility] Protein (U) [Mass/Vol] 3+ Abnormal NEGAT RAJAN mg/dL [facility] Specific gravity (U) [Rel density] 1.027 1.005 - 1.030 [facility] Urobilinogen Qn (U) Normal 0.0 - 1. 0 EU/dL Bon [facility] Urinalysis,Microon 4 Bacteria None Normal NONE [facility] Comment on above: Performed By: #### U MICAO, UAX ####[facility] [address] [place] [address] Lab Director: Ramiro Mark MD Casts 10 TO 20 HYALINE Normal 0-8 [facility] Comment on above: Result Comment: Refe rence range defined for non-centrifuged specimen. Performed By: #### U MICAO, UAX ####[facility] [address]cpy[address] [place] [address] Lab Director: Ramiro Mark MD Epithelial cells LM Ql (Urine sed) 5 TO 10 Normal 05 [facility] Comment on above: Performed By: #### U ABDIO, UAX ####[facility] [address]wtjnatz[address] [place] [address] Lab Director: Ramiro Mark MD Urine RBC's 10 TO 20 Normal 0-4 [facility] Comment on above: Result Comment: Refe rence range defined for non-centrifuged specimen. Performed By: #### U MICAO, UAX ####[facility] [address] [place] [address] Lab Director: Ramiro Mark MD Urine WBC's 5 TO [address] Comment on above: Performed By: #### U MICAO, UAX ####[facility] [address] [place] [address] Lab Director: Ramiro Mark MD Anti-Xa, Unfractionated Hepa rinon 09-29-2024 Anti-XA Unfrac Heparin 0.51 IU/L Trip n [facility] Anti-XA Unfrac Heparin 0.28 IU/L Trip n [facility] Anti-XA Unfrac Heparin 0.44 IU/L Trip n [facility] Bon [facility] Arterial Bld Gas,POCon 09-29 Jody Test Positive Normal [facility] FIO2 30.0 Normal [facility] HCO3 (Bld) [Moles/Vol] 25.0 mmol/L Normal 21.0-28.0 M [facility] Oxygen saturation in Blood 99.5 % High 94.0-98.0 [facility] pCO2, Arterial 38.9 mm Hg Normal 35.0-48.0 [facility] pH, Arterial 7.415 Normal 7.350-7.450 [facility] pO2, Arterial 161.8 mm Hg High 83.0-108.0 [facility] Positive Base Excess (calc) 0.4 mmol/L Normal 0.0-3.0 [facility] Site Drawn Right Radial Artery Normal [facility] Arterial Blood Gas, POCon Jody Test Positive [facility] FIO2 30.0 [facility] HCO3 (Bld) [Moles/Vol] 25.0 mmol/L 21.0 - 28.0 mmol/L [facility] Oxygen saturation in Blood 99.5 % High 94.0 - 98.0 % [facility] POC pCO2 38.9 [facility] POC pH 7.415 7.350 - 7.450 [facility] POC PO2 161.8 High [facility] Positive Base Excess, Art 0.4 mmol/L 0.0 - 3.0 mmol/L [facility] Sample Site Right Radial Artery [facility] Basic Metabolic Panelon 09-16 Anion gap [Moles/Vol] 12 mmol/L 9 - 16 mmol/L [facility] Calcium [Mass/Vol] 8.1 mg/dL Low 8.6 - 10. 4 mg/dL [facility] Chloride [Moles/Vol] 101 mmol/L 98 - 10 7 mmol/L [facility] CO2 [Moles/Vol] 20 mmol/L 20 - 31 mmol/L [facility] Creatinine [Mass/Vol] 2.4 mg/dL High 0.7 - 1.2 mg/dL [facility] Est, Glom Filt Rate 32 Low - PINF [facility] Glucose [Mass/Vol] 258 mg/dL High 74 - 99 mg/dL [facility] Interpretation and review of laboratory results Abnormal [facility] Potassium [Moles/Vol] 4.4 mmol/L 3.7 - 5.3 mmol/L [facility] Sodium [Moles/Vol] 133 mmol/L Low 136 - 145 mmol/L [facility] Urea nitrogen [Mass/Vol] 39 mg/dL High 6 - 20 mg/dL [facility] Est, Glom Filt Rate 36 Low - PINF [facility] Interpretation and review of laboratory results Abnormal [facility] Anion gap [Moles/Vol] 11 mmol/L 9 - 16 mmol/L [facility] Calcium [Mass/Vol] 8.0 mg/dL Low 8.6 - 10. 4 mg/dL [facility] Chloride [Moles/Vol] 104 mmol/L 98 - 10 7 mmol/L [facility] CO2 [Moles/Vol] 21 mmol/L 20 - 31 mmol/L [facility] Creatinine [Mass/Vol] 2.4 mg/dL High 0.7 - 1.2 mg/dL [facility] Est, Glom Filt Rate 32 Low - PINF [facility] Glucose [Mass/Vol] 214 mg/dL High 74 - 99 mg/dL [facility] Interpretation and review of laboratory results Abnormal [facility] Potassium [Moles/Vol] 3.8 mmol/L 3.7 - 5.3 mmol/L [facility] Sodium [Moles/Vol] 136 mmol/L 136 - 145 mmol/L [facility] Urea nitrogen [Mass/Vol] 41 mg/dL High 6 - 20 mg/dL [facility] Basic Metabolic Profon 09-29 Anion gap [Moles/Vol] 12 mmol/L Normal 9-16 [facility] Comment on above: Performed By: #### H EPXA, BMP, MG, CHELO ####[facility] [address] [place] [address] Lab Director: Ramiro Mark MD Calcium [Mass/Vol] 8.1 mg/dL Low 8.6-10.4 [facility] Comment on above: Performed By: #### H EPXA, BMP, MG, CHELO ####[facility] [address] [place] [address] Lab Director: Ramiro Mark MD Chloride [Moles/Vol] 101 mmol/L Normal 98-107 [facility] Comment on above: Performed By: #### H EPXA, BMP, MG, CHELO ####[facility] [address] [place] [address] Lab Director: Ramiro Mark MD CO2 [Moles/Vol] 20 mmol/L Normal 20-31 [facility] Comment on above: Performed By: #### H EPXA, BMP, MG, CHELO ####[facility] [address] [place] [address] Lab Director: Ramiro Mark MD Creatinine [Mass/Vol] 2.4 mg/dL High 0.7-1.2 [facility] Comment on above: Performed By: #### H EPXA, BMP, MG, CHELO ####[facility] [address]lsbovydbect[address]32 [place] [address] Lab Director: Ramiro Mark MD GFR/1.73 sq M.predicted among non-blacks MDRD (S/P/Bld) [Vol rate/Area] 32 mL/min/{1.73_m2} Low >60 [facility] Comment on above: Result Comment: Thes e [...] affects renal tubular secretion. Performed By: #### H EPXA, BMP, MG, CHELO ####[facility] [address] [place] [address] Lab Director: Ramiro Mark MD Glucose [Mass/Vol] 258 mg/dL High 74-99 [facility] Comment on above: Performed By: #### H EPXA, BMP, MG, CHELO ####[facility] [address] [place], [place] [phone] Director: Ramiro Mark MD Potassium [Moles/Vol] 4.4 mmol/L Normal 3.7-5.3 [facility] Comment on above: Result Comment: Spec imen hemolysis has exceeded the interference as defined by Jaime. Value may be falsely increased. Suggest recollection if clinically indicated. Performed By: #### H EPXA, BMP, MG, CHELO ####[facility] [address] [place], [place] [phone] Director: Ramiro Mark MD Sodium [Moles/Vol] 133 mmol/L Low 136-145 [facility] Comment on above: Performed By: #### H EPXA, BMP, MG, CHELO ####[facility] [address]pc[address] [place], [place] [phone] Director: Ramiro Mark MD Urea nitrogen [Mass/Vol] 39 mg/dL High 6-20 [facility] Comment on above: Performed By: #### H EPXA, BMP, MG, CHELO ####[facility] [address]ks[address] [place] [address] Lab Director: Ramiro Mark MD Anion gap [Moles/Vol] 9 mmol/L Normal 9-16 [facility] Comment on above: Performed By: #### F KLLC, PE, ANAX, PHEP, MG, CHELO, BMP ####[facility] [address]sp[address] [place] [address] lab Director: Ramiro Mark MD Calcium [Mass/Vol] 7.1 mg/dL Low 8.6-10.4 [facility] Comment on above: Performed By: #### F KLLC, PE, ANAX, PHEP, MG, CHELO, BMP ####[facility] [address]wh[address]ktf[address]75[address] [place] [address] lab Director: Ramiro Mark MD Chloride [Moles/Vol] 99 mmol/L Normal 98-107 [facility] Comment on above: Performed By: #### F KLLC, PE, ANAX, PHEP, MG, CHELO, BMP ####[facility] [address] [place], [place] [address])[phone] Director: Ramiro Mark MD CO2 [Moles/Vol] 19 mmol/L Low 20-31 [facility] Comment on above: Performed By: #### F KLLC, PE, ANAX, PHEP, MG, CHELO, BMP ####[facility] [address] [place], [place] [address])[phone] Director: Ramiro Mark MD Creatinine [Mass/Vol] 2.2 mg/dL High 0.7-1.2 [facility] Comment on above: Performed By: #### F KLLC, PE, ANAX, PHEP, MG, CHELO, BMP ####[facility] [address] [place], [place] [address])[phone] Director: Ramiro Mark MD Glucose [Mass/Vol] 588 mg/dL Critically high 74-99 B on [facility] Comment on above: Performed By: #### F KLLC, PE, ANAX, PHEP, MG, CHELO, BMP ####[facility] [address]v48[address] [place] [address] lab Director: Ramiro Mark MD Potassium [Moles/Vol] 3.5 mmol/L Low 3.7-5.3 [facility] Comment on above: Performed By: #### F KLLC, PE, ANAX, PHEP, MG, CHELO, BMP ####[facility] [address]jd[address]147 [place] [address] Lab Director: Ramiro Mark MD Sodium [Moles/Vol] 127 mmol/L Low 136-145 [facility] Comment on above: Performed By: #### F KLLC, PE, ANAX, PHEP, MG, CHELO, BMP ####[facility] [address]kl[address]os[address]vdp6700 [place] [address] Lab Director: Ramiro Mark MD Urea nitrogen [Mass/Vol] 34 mg/dL High 6-20 [facility] Comment on above: Performed By: #### F KLLC, PE, ANAX, PHEP, MG, CHELO, BMP ####[facility] [address]ot[address] [place] [address] Lab Director: Ramiro Mark MD GFR/1.73 sq M.predicted among non-blacks MDRD (S/P/Bld) [Vol rate/Area] 36 mL/min/{1.73_m2} Low >60 [facility] Comment on above: Result Comment: Thes e [...] affects renal tubular secretion. Performed By: #### F KLLC, PE, ANAX, PHEP, MG, CHELO, BMP ####[facility] [address]ov[address]yvqqr4723 [place] [address] Lab Director: Ramiro Mark MD Anion gap [Moles/Vol] 11 mmol/L Normal 9-16 [facility] Comment on above: Performed By: #### B MP, MG, CHELO ####[facility] [address] [place] [address] Lab Director: Ramiro Mark MD Calcium [Mass/Vol] 8.0 mg/dL Low 8.6-10.4 [facility] Comment on above: Performed By: #### B MP, MG, CHELO ####[facility] [address] [place], [place] [phone] Director: Ramiro Mark MD Chloride [Moles/Vol] 104 mmol/L Normal 98-107 [facility] Comment on above: Performed By: #### B MP, MG, CHELO ####[facility] [address] [place], [place] [phone] Director: Ramiro Mark MD CO2 [Moles/Vol] 21 mmol/L Normal 20-31 [facility] Comment on above: Performed By: #### B MP, MG, CHELO ####[facility] [address] [place] [address] [phone] Director: Ramiro Mark MD Creatinine [Mass/Vol] 2.4 mg/dL High 0.7-1.2 [facility] Comment on above: Performed By: #### B MP, MG, CHELO ####[facility] [address] [place] [phone])[phone] Director: Ramiro Mark MD GFR/1.73 sq M.predicted among non-blacks MDRD (S/P/Bld) [Vol rate/Area] 32 mL/min/{1.73_m2} Low >60 [facility] Comment on above: Result Comment: Thes e [...] Performed By: #### B MP, MG, CHELO ####[facility] [address]kltsi[address] [place] [address] Lab Director: Ramiro Mark MD Glucose [Mass/Vol] 214 mg/dL High 74-99 [facility] Comment on above: Performed By: #### B MP, MG, CHELO ####[facility] [address] [place] [address] Lab Director: Ramiro Mark MD Potassium [Moles/Vol] 3.8 mmol/L Normal 3.7-5.3 [facility] Comment on above: Performed By: #### B MP, MG, CHELO ####[facility] [address] [place] [address] Lab Director: Ramiro Mark MD Sodium [Moles/Vol] 136 mmol/L Normal 136-145 [facility] Comment on above: Performed By: #### B MP, MG, CHELO ####[facility] [address]ibylz57[address] [place] [address] Lab Director: Ramiro Mark MD Urea nitrogen [Mass/Vol] 41 mg/dL High 6-20 [facility] Comment on above: Performed By: #### B MP, MG, CHELO ####[facility] [address]fcio[address] [place] [address] Lab Director: Ramiro Mark MD CBC with Auto Differentialon 09-29-2024 Basophils (Bld) [#/Vol] 0.05 10*3/uL [facility] Basophils/100 WBC (Bld) 0 % 0 - 2 % [facility] Eosinophils (Bld) [#/Vol] [facility] Eosinophils/100 WBC (Bld) 0 % Low 1 - 4 % [facility] Erythrocyte distribution width (RBC) [Ratio] 13.1 % 11.8 - 14.4 % [facility] Hematocrit (Bld) [Volume fraction] 26.1 % Low 40.7 - 50.3 % [facility] Hemoglobin (Bld) [Mass/Vol] 8.8 g/dL Low 13.0 - 17.0 g/dL [facility] Immature granulocytes (Bld) [#/Vol] 0.12 10*3/uL [facility] Immature granulocytes/100 WBC (Bld) 1 % High 0 [facility] Interpretation and review of laboratory results Abnormal [facility] Lymphocytes/100 WBC (Bld) 8 % Low 24 - 43 % [facility] Lymphocytes/100 WBC (Bld) 1.42 % [facility] MCH (RBC) [Entitic mass] 28.6 pg 25.2 - 33.5 pg [facility] MCHC (RBC) [Mass/Vol] 33.7 g/dL 28.4 - 34.8 g/dL [facility] MCV (RBC) [Entitic vol] 84.7 fL 82.6 - 102.9 fL [facility] Monocytes/100 WBC (Bld) 5 % 3 - 12 % [facility] Monocytes/100 WBC (Bld) 0.81 % [facility] Neutrophils/100 WBC (Bld) 86 % High 36 - 65 % [facility] Nucleated RBC/100 WBC (Bld) [Ratio] 0.0 % 0.0 per 100 WBC [facility] Platelet mean volume (Bld) [Entitic vol] 10.6 fL 8.1 - 13.5 fL [facility] Platelets (Bld) [#/Vol] 214 10*3/uL [facility] RBC (Bld) [#/Vol] 3.08 10*6/uL Low 4.21 - 5.7 7 m/uL [facility] Segmented neutrophils/100 WBC (Bld) 15.23 % High [facility] WBC other (Bld) [#/Vol] 17.6 High [facility] CBC with Diffon 09-29-2024 Abs. Basophil 0.05 k/uL Normal 0.00-0.20 [facility] Comment on above: Performed By: #### C DP ####[facility] [address] [place] [address] [facility] Director: Ramiro Mark MD Abs. Eosinophil <0.03 Normal 0.00-0.44 [facility] Comment on above: Performed By: #### C DP ####[address] [phone] Director: Ramiro Mark MD Abs.Imm.Granulocyte 0.12 k/uL Normal 0.00-0.30 [facility] Comment on above: Performed By: #### C DP ####[address] [id number] Director: Ramiro Mark MD Abs.Neutrophil (Seg) 15.23 k/uL High 1.50-8.10 [facility] Comment on above: Performed By: #### C DP ####[address] [phone] Director: Ramiro Mark MD Basophils/100 WBC (Bld) 0 % Normal 0-2 [facility] Comment on above: Performed By: #### C DP ####[address] [address])[phone] Director: Ramiro Mark MD Eosinophils/100 WBC (Bld) 0 % Low 1-4 [facility] Comment on above: Performed By: #### C DP ####[address] [address])[phone] Director: Ramiro Mark MD Erythrocyte distribution width (RBC) [Ratio] 13.1 % Normal 11.8-14.4 [facility] Comment on above: Performed By: #### C DP ####[address] [address])[phone] Director: Ramiro Mark MD Hematocrit (Bld) [Volume fraction] 26.1 % Low 40.7-50.3 [facility] Comment on above: Performed By: #### C DP ####[address] [address])[phone] Director: Ramiro Mark MD Hemoglobin (Bld) [Mass/Vol] 8.8 g/dL Low 13.0-17.0 [facility] Comment on above: Performed By: #### C DP ####[address] [phone] Director: Ramiro Mark MD Immature granulocytes/100 WBC (Bld) 1 % High 0 [facility] Comment on above: Performed By: #### C DP ####[place], [place] [address])[phone] Director: Ramiro Mark MD Lymphocytes (Bld) [#/Vol] 1.42 10*3/uL Normal 1.10-3.70 [facility] Comment on above: Performed By: #### C DP ####[place], [place] [address])[phone] Director: Ramiro Mark MD Lymphocytes/100 WBC (Bld) 8 % Low 24-43 [facility] Comment on above: Performed By: #### C DP ####[place], [place] [address])[phone] Director: Ramiro Mark MD MCH (RBC) [Entitic mass] 28.6 pg Normal 25.2-33.5 [facility] Comment on above: Performed By: #### C DP ####[place], [place] [address])[phone] Director: Ramiro Mark MD MCHC (RBC) [Mass/Vol] 33.7 g/dL Normal 28.4-34.8 [facility] Comment on above: Performed By: #### C DP ####[place], [place] [address])[phone] Director: Ramiro Mark MD MCV (RBC) [Entitic vol] 84.7 fL Normal 82.6-102.9 [facility] Comment on above: Performed By: #### C DP ####[address] [place], [place] [phone])[phone] Director: Ramiro Mark MD Monocytes (Bld) [#/Vol] 0.81 10*3/uL Normal 0.10-1.20 [facility] Comment on above: Performed By: #### C DP ####[address] [phone])[phone] Director: Ramiro Mark MD Monocytes/100 WBC (Bld) 5 % Normal 3-12 [facility] Comment on above: Performed By: #### C DP ####[address] [phone] Director: Ramiro Mark MD Neutrophil (Seg) 86 % High 36-65 [facility] Comment on above: Performed By: #### C DP ####[address] [phone] Director: Ramiro Mark MD NRBC Automated 0.0 per 100 WBC Normal 0.0 [facility] Comment on above: Performed By: #### C DP ####[address] [phone] Director: Ramiro Mark MD Platelet mean volume (Bld) [Entitic vol] 10.6 fL Normal 8.1-13.5 [facility] Comment on above: Performed By: #### C DP ####[address] [phone])[phone] Director: Ramiro Mark MD Platelets (Bld) [#/Vol] 214 10*3/uL Normal 138-453 [facility] Comment on above: Performed By: #### C DP ####[address] [phone])[phone] Director: Ramiro Mark MD RBC (Bld) [#/Vol] 3.08 10*6/uL Low 4.21-5.77 [facility] Comment on above: Performed By: #### C DP ####[address] [place] [address] Lab Director: Ramiro Mark MD WBC (Bld) [#/Vol] 17.6 10*3/uL High 3.5-11.3 [facility] Comment on above: Performed By: #### C DP ####[address] [place] [address] Lab Director: Ramiro Mark MD Calcium, Ionicon 09-29-2024 Calcium [Moles/Vol] 1.20 mmol/L Normal 1.13-1.33 [facility] Comment on above: Performed By: #### I OCAL ####[facility] [address] [place] [address] Lab Director: Ramiro Mark MD Calcium, Ionizedon Calcium.ionized (Bld) [Moles/Vol] 1.20 mmol/L 1.13 - 1.33 mmol/L [employer] Cardiac echo study Procedure Ordered By: Kika Raymond on 09-29-2024 Ao Root Index 1.71 cm/m2 [employer] Phone: Aortic Root 3.4 cm [employer] Work Phone: AV Area by Peak Velocity 2.6 cm2 [employer] Phone: AV Area by VTI 2.6 cm2 [employer] Phone: AV Mean Gradient 4 mmHg [employer] Work Phone: AV Mean Velocity 0.9 m/s [employer] Phone: AV Peak Gradient 7 mmHg [employer] Work Phone: AV Peak Velocity 1.4 m/s [employer] Work Phone: AV Velocity Ratio 0.71 Sharon [employer] ely[employer]ia [employer] Work Phone: AV VTI 26.7 cm Sharon [employer] Work Phone: EZIO/BSA Peak Velocity 1.3 cm2/m2 Sharon [employer] Work Phone: EZIO/BSA VTI 1.3 cm2/m2 Sharon [employer] Work Phone: Body surface area Derived from formula 2 m2 Sharon [employer] Phone: E/E' Lateral 8.87 Sharon [employer] Phone: E/E' Ratio (Averaged) 9.20 Sharon [employer] Phone: E/E' Septal 9.54 Sharon [employer] Phone: EF BP 65 % 55 - 100 % [employer] Work Phone: Fractional Shortening 2D 43 % 28 - 44 % [employer] Work Phone: Global Longitudinal Strain -16.7 % Sharon [employer] Work Phone: Interpretation and review of laboratory results Abnormal Sharon [employer] Work Phone: IVSd 1.5 cm Abnormal 0.6 - 1.0 cm hSaron [employer] Work Phone: LA Area 2C 15.4 cm2 [employer] Work Phone: LA Area 4C 15.4 cm2 [employer] Work Phone: LA Diameter 2.9 cm [employer] Work Phone: LA Major [place] 4.7 cm [employer] Phone: LA Minor [place] 5.1 cm [employer] Phone: LA Size Index 1.46 cm/m2 [employer] Work Phone: LA Volume BP 36 mL 18 - 58 mL [employer] Work Phone: LA Volume Index BP 18 ml/m2 16 - 34 ml/m2 [employer] Work Phone: LA Volume Index MOD A2C 17 ml/m2 16 - 34 ml/m2 [employer] Work Phone: LA Volume Index MOD A4C 19 ml/m2 16 - 34 ml/m2 [employer] Work Phone: LA Volume MOD A2C 33 mL 18 - 58 mL [employer] Work Phone: LA Volume MOD A4C 37 mL 18 - 58 mL [employer] Work Phone: LA/AO Root Ratio 0.85 Bon [employer] Work Phone: LV E' Lateral Velocity 9.36 cm/s Trip [employer] Work Phone: LV E' Septal Velocity 8.70 cm/s [employer] Work Phone: LV EDV A2C 65 mL [employer] Work Phone: LV EDV A4C 80 mL [employer] Work Phone: LV EDV Index A2C 33 mL/m2 [employer] Work Phone: LV EDV Index A4C 40 mL/m2 Bon [employer] Work Phone: LV Ejection Fraction A2C 66 % [employer] Work Phone: LV Ejection Fraction A4C 67 % [employer] Work Phone: LV ESV A2C 22 mL [employer] Work Phone: LV ESV A4C 27 mL [employer] Work Phone: LV ESV Index A2C 11 mL/m2 Bon [employer] Work Phone: LV ESV Index A4C 14 mL/m2 [employer] Work Phone: LV Mass 2D 220.7 g 88 - 224 g [employer] Work Phone: LV Mass 2D Index 110.9 g/m2 49 - 115 g/m2 [employer] Phone: LV RWT Ratio 0.70 [employer] Phone: LVIDd 4.0 cm Abnormal 4.2 - 5.9 cm [employer] Phone: LVIDd Index 2.01 cm/m2 [employer] Phone: LVIDs 2.3 cm [employer] Phone: LVIDs Index 1.16 cm/m2 [employer] Phone: LVOT Area 3.5 cm2 [employer] Phone: LVOT Diameter 2.1 cm [employer] Phone: LVOT Mean Gradient 2 mmHg Bon [employer] Work Phone: LVOT Peak Gradient 4 mmHg Bon [employer] Phone: LVOT Peak Velocity 1.0 m/s Bon [employer] Phone: LVOT Stroke Volume Index 34.8 mL/m2 [employer] Phone: LVOT SV 69.2 ml [employer] Phone: LVOT VTI 20.0 cm [employer] Phone: LVOT:AV VTI Index 0.75 [place] Phone: LVPWd 1.4 cm Abnormal 0.6 - 1.0 cm [employer] Phone: MV A Velocity 0.75 m/s [employer] Phone: MV Area by VTI 3.0 cm2 [place] [employer] Work Phone: MV E Velocity 0.83 m/s Sharon [employer] Work Phone: MV E Wave Deceleration Time 134.0 ms Sharon [employer] Work Phone: MV E/A 1.11 Sharon [employer] Work Phone: MV Max Velocity 1.1 m/s [place] [employer] Work Phone: MV Mean Gradient 2 mmHg Bon Seco urs [employer] Work Phone: MV Mean Velocity 0.7 m/s Sharon Seco urs [employer] Work Phone: MV Peak Gradient 5 mmHg Sharon Seco urs [employer] Work Phone: MV VTI 23.2 cm Sharon [employer] Work Phone: [phone] MV:LVOT VTI Index 1.16 Sharon Sec ours [employer] Work Phone: PV Max Velocity 1.1 m/s Sharon Secou rs [employer] Work Phone: [phone] PV Peak Gradient 5 mmHg Bon Seco urs [employer] Work Phone: [phone] RA Area 4C 12.4 cm2 Sharon [employer] Work Phone: [phone] RA Volume 24 ml Sharon [employer] Work Phone: RA Volume Index A4C 12 mL/m2 Bon [place] ec[place] [employer] Work Phone: RV Basal Dimension 2.9 cm Bon cours [employer] Work Phone: [phone] RV Free Wall Peak S' 13.1 cm/s [employer] Work Phone: TAPSE 3.0 cm 1.7 cm Sharon [employer] Work Phone: Sharon [employer] Work Phone: Cardiac echo study Procedure on 09-29-2024 [facility] CV CPACS Radiology Study observation (narrative) [employer] EKG 12 Leadon 09-29-2024 Atrial Rate 111 BPM [facility] P [place] 79 degrees [facility] P-R Interval 166 ms [facility] Q-T Interval 336 ms [facility] QRS Duration 82 ms [facility] QTc Calculation (Bazett) 456 ms [facility] R [place] 68 degrees [facility] T [place] 68 degrees [facility] Ventricular Rate 111 BPM [facility] MHPN STV MUSE [facility] Glucose (POC)on 09-29-2024 Glucose [Mass/Vol] 189 mg/dL High 74-100 [facility] Glucose,Whole Bloodon 2023 Glucose [Mass/Vol] 203 mg/dL High 75-110 [facility] Glucose [Mass/Vol] 289 mg/dL High 75-110 [facility] Glucose [Mass/Vol] 227 mg/dL High 75-110 [facility] Glucose [Mass/Vol] 229 mg/dL High 75-110 [facility] Glucose [Mass/Vol] 149 mg/dL High 75-110 [facility] Glucose [Mass/Vol] 187 mg/dL High 75-110 [facility] Glucose [Mass/Vol] 187 mg/dL High 75-110 [facility] Glucose [Mass/Vol] 214 mg/dL High 75-110 [facility] Glucose [Mass/Vol] 222 mg/dL High 75-110 [facility] Glucose [Mass/Vol] 205 mg/dL High 75-110 [facility] Glucose [Mass/Vol] 140 mg/dL High 75-110 [facility] Heparin Anti-Xaon 09-29-2024 Heparin Anti-Xa 0.51 IU/L Normal [facility] Comment on above: Result Comment: This test has not been validated or calibrated for therapies other than unfractionated heparin.Interpretation of the result in relation to other therapies must be done with caution and within clinical context. Performed By: #### H EPXA, BMP, MG, CHELO ####[facility] [address] [place] [address] Lab Director: Ramiro Mark MD Heparin Anti-Xa 0.28 IU/L Normal [facility] Comment on above: Result Comment: This test has not been validated or calibrated for therapies other than unfractionated heparin.Interpretation of the result in relation to other therapies must be done with caution and within clinical context. Performed By: #### H EPXA ####[facility] [address] [place] [address] lab Director: Ramiro Mark MD Heparin Anti-Xa 0.44 IU/L Normal [facility] Comment on above: Result Comment: This test has not been validated or calibrated for therapies other than unfractionated heparin.Interpretation of the result in relation to other therapies must be done with caution and within clinical context. Performed By: #### H EPXA ####[facility] [address] [place] [id number] Lab Director: Ramiro Mark MD Lactic Acid (POC)on 09-29-20 24 Lactate [Moles/Vol] 1.4 mmol/L High 0.56-1.39 [facility] Lactic Acid, POCon 4 POC Lactic Acid 1.4 mmol/L High 0.56 - 1.39 mmol/L [facility] MRSA DNA Probe, Nasalon 09-16 MRSA, DNA, Nasal Negative NEGATIVE [facility] Specimen Description .NASAL SWAB [facility] MRSA, DNA, Nasalon 4 MRSA, DNA, Nasal Negative Normal NEG [facility] Comment on above: Result Comment: NEGA TIVE: MRSA DNA not detected by nucleic acid amplification.Results should be used as an adjunct to nosocomial control efforts to identify patients needing enhanced precautions.The test is not intended to identify patients with staphylococcal infections. Results should not be used to guide or monitor treatment for MRSA infections. Performed By: #### M RSANO ####[facility] [address] [place] [address] [phone] lab Director: Ramiro Mark MD Magnesiumon 09-29-2024 Magnesium [Mass/Vol] 2.2 mg/dL 1.6 - 2 .6 mg/dL [facility] Magnesium [Mass/Vol] 2.2 mg/dL Normal 1.6-2.6 [facility] Comment on above: Performed By: #### H EPXA, BMP, MG, CHELO ####[facility] [address] [place], [place] [phone] lab Director: Ramiro Mark MD Magnesium [Mass/Vol] 1.6 mg/dL Normal 1.6-2.6 [facility] Comment on above: Performed By: #### F KLLC, PE, ANAX, PHEP, MG, CHELO, BMP ####[facility] [address] [place], [place] [id number] lab Director: Ramiro Mark MD Magnesium [Mass/Vol] 1.8 mg/dL 1.6 - 2 .6 mg/dL [facility] Magnesium [Mass/Vol] 1.8 mg/dL Normal 1.6-2.6 [facility] Comment on above: Performed By: #### B MP, MG, CHELO ####[facility] [address] [place], [place] [id number] lab Director: Ramiro Makr MD No Panel Informationon 09-29 [facility] Interpretation and review of laboratory results Abnormal [facility] POC Glucose Fingerstickon Glucose [Mass/Vol] 203 mg/dL High 75 - 110 mg/dL [facility] Interpretation and review of laboratory results Abnormal [facility] Glucose [Mass/Vol] 289 mg/dL High 75 - 110 mg/dL [facility] Interpretation and review of laboratory results Abnormal [facility] Glucose [Mass/Vol] 227 mg/dL High 75 - 110 mg/dL [facility] Interpretation and review of laboratory results Abnormal [facility] Glucose [Mass/Vol] 229 mg/dL High 75 - 110 mg/dL [facility] Interpretation and review of laboratory results Abnormal [facility] Glucose [Mass/Vol] 149 mg/dL High 75 - 110 mg/dL [facility] Interpretation and review of laboratory results Abnormal [facility] Glucose [Mass/Vol] 187 mg/dL High 75 - 110 mg/dL [facility] Interpretation and review of laboratory results Abnormal [facility] Glucose [Mass/Vol] 187 mg/dL High 75 - 110 mg/dL [facility] Interpretation and review of laboratory results Abnormal [facility] Glucose [Mass/Vol] 214 mg/dL High 75 - 110 mg/dL [facility] Interpretation and review of laboratory results Abnormal [facility] Glucose [Mass/Vol] 222 mg/dL High 75 - 110 mg/dL [facility] Interpretation and review of laboratory results Abnormal [facility] Glucose [Mass/Vol] 205 mg/dL High 75 - 110 mg/dL [facility] Interpretation and review of laboratory results Abnormal [facility] Glucose [Mass/Vol] 140 mg/dL High 75 - 110 mg/dL [facility] Interpretation and review of laboratory results Abnormal [facility] POCT Glucoseon 09-29-2024 Glucose [Mass/Vol] 189 mg/dL High 74 - 100 mg/dL [facility] Phosphoruson 09-29-2024 Phosphate [Mass/Vol] 4.5 mg/dL 2.5 - 4 .5 mg/dL [facility] Phosphate [Mass/Vol] 3.4 mg/dL 2.5 - 4 .5 mg/dL [facility] Phosphate [Mass/Vol] 4.2 mg/dL 2.5 - 4 .5 mg/dL [facility] Phosphorus, Inorg.on 024 Phosphorus, Inorg. 4.5 mg/dL Normal 2.5-4.5 [facility] Comment on above: Performed By: #### H EPXA, BMP, MG, CHELO ####[facility] [address] [place] [address] Lab Director: Ramiro Mark MD Phosphorus, Inorg. 3.4 mg/dL Normal 2.5-4.5 [facility] Comment on above: Performed By: #### F KLLC, PE, ANAX, PHEP, MG, CHELO, BMP ####[facility] [address] [place] [address] Lab Director: Ramiro Mark MD Phosphorus, Inorg. 4.2 mg/dL Normal 2.5-4.5 [facility] Comment on above: Performed By: #### B MP, MG, CHELO ####[facility] [address] [place] [address] Lab Director: Ramiro Mark MD US Kidneyon 09-29-2024 MHPN RIS CONSOLIDATED [facility] RIS CONSOLIDATED [facility] KidneyOrdered By: Isai pal on 09-29-2024 [facility] Work Phone: US RENAL COMPLETEon 09-29-20 US RENAL COMPLETE Normal [facility] APTTon 09-28-2024 aPTT Coag (Bld) [Time] 20.2 s Low Trip [facility] Interpretation and review of laboratory results Abnormal [facility] aPTT Coag (Bld) [Time] 20.2 s Low 23.0-36.5 [facility] Comment on above: Result Comment: IV H eparin Therapy Range:66.0-92.0 sec Performed By: #### H EPXA, CBC, PT, PTT ####[facility] [address] [place] [address] Lab Director: Ramiro Mark MD Ammoniaon 09-28-2024 Ammonia (P) [Moles/Vol] 27 umol/L umol/L [facility] Ammonia (P) [Moles/Vol] 27 umol/L Normal [facility] Comment on above: Performed By: #### L ACTIC #### [facility] [address] [place] [address] Comparator Operator: Ramiro Santillan MD Anti-Xa, Unfractionated Hepa rinon 09-28-2024 Anti-XA Unfrac Heparin <0.10 IU/L Trip [facility] Arterial Bld Gas,POCon 09-28 Jody Test Positive Normal [facility] FIO2 40.0 Normal [facility] HCO3 (Bld) [Moles/Vol] 25.6 mmol/L Normal 21.0-28.0 [facility] Oxygen saturation in Blood 99.7 % High 94.0-98.0 [facility] pCO2, Arterial 42.0 mm Hg Normal 35.0-48.0 [facility] pH, Arterial 7.394 Normal 7.350-7.450 [facility] pO2, Arterial 201.7 mm Hg High 83.0-108.0 [facility] Positive Base Excess (calc) 0.6 mmol/L Normal 0.0-3.0 [facility] Site Drawn Right Radial Artery Normal [facility] Arterial Blood Gas, POCon Jody Test Positive [facility] FIO2 40.0 [facility] HCO3 (Bld) [Moles/Vol] 25.6 mmol/L 21.0 - 28.0 mmol/L [facility] Interpretation and review of laboratory results Abnormal [facility] Oxygen saturation in Blood 99.7 % High 94.0 - 98.0 % [facility] POC pCO2 42.0 [facility] POC pH 7.394 7.350 - 7.450 [facility] POC PO2 201.7 High [facility] Positive Base Excess, Art 0.6 mmol/L 0.0 - 3.0 mmol/L [facility] Sample Site Right Radial Artery [facility] Arterial Blood Gaseson 09-28 Jody Test YES [facility] Comment on above: Performed By: #### L ACTIC #### [facility] [address] [place] [address] Comparator Operator: Ramiro Santillan MD Body Temp. 37.0 [facility] Comment on above: Performed By: #### L ACTIC #### [facility] [address] [place] [address] Comparator Operator: Ramiro Santillan MD FIO2 21 [facility] Comment on above: Performed By: #### L ACTIC #### [facility] [address] [place], [place] [id number] Comparator Operator: Ramiro Santillan MD HCO3 (Bld) [Moles/Vol] 20.6 mmol/L Low 22-26 M [facility] Comment on above: Performed By: #### L ACTIC #### [facility] [address] [place] [address] Comparator Operator: Ramiro Santillan MD Negative Base Excess 3.7 mmol/L High 0.0-2.0 [facility] Comment on above: Performed By: #### L ACTIC #### [facility] [address] [place] [address] Comparator Operator: Ramiro Santillan MD O2 Device/Flow/% ROOM AIR [facility] Comment on above: Performed By: #### L ACTIC #### [facility] [address] [place] [address] Comparator Operator: Ramiro Santillan MD Oxygen (Bld) [Partial pressure] 72.2 mm[Hg] Low 80.0-100.0 [facility] Comment on above: Performed By: #### L ACTIC #### [facility] [address] [place], [place] [id number] Comparator Operator: Ramiro Santillan MD Oxygen saturation in Blood 94.5 % Low 95-98 [facility] Comment on above: Performed By: #### L ACTIC #### [facility] [address] [place], [place] [id number] Comparator Operator: Ramiro Santillan MD pCO2 35.2 mmHg Normal 35-45 [facility] Comment on above: Performed By: #### L ACTIC #### [facility] [address] [place], [place] [id number] Comparator Operator: Ramiro Santillan MD pCO2 Adj'd for Temp 35.2 Normal 35.0-45.0 [facility] Comment on above: Performed By: #### L ACTIC #### [facility] [address] [place], [place] [id number] Comparator Operator: Ramiro Santillan MD pH (Bld) 7.385 [pH] Normal 7.35-7.45 [facility] Comment on above: Performed By: #### L ACTIC #### [address] [place], [place] [id number] Comparator Operator: Ramiro Santillan MD pH Adjst'd for Temp. 7.385 Normal 7.350-7.450 [facility] Comment on above: Performed By: #### L ACTIC #### [facility] [address] [place], [place] [id number] Comparator Operator: Ramiro Santillan MD pO2 Adjst'd for Temp 72.2 mmHg Low 80.0-100.0 [facility] Comment on above: Performed By: #### L ACTIC #### [address] [place] [address] Comparator Operator: Ramiro Santillan MD Site Drawn Left Radial Artery Normal [facility] Comment on above: Performed By: #### L ACTIC #### [facility] [address] [place] [address] Comparator Operator: Ramiro Santillan MD Basic Metab w/rfx MGon 09-28 Anion gap [Moles/Vol] 12 mmol/L Normal 9-16 [facility] Comment on above: Performed By: #### A GLYCO ####[facility] [address] [place] [address] Lab Director: Wil Swanson MD#### SED, PRCAL, MYCM, CDP, BMPX, TROPI, GLYHGB, IOCAL, LACTIC, CRP ####[address] [id number] Lab Director: Ramiro Mark MD Calcium [Mass/Vol] 8.5 mg/dL Low 8.6-10.4 [facility] Comment on above: Performed By: #### A GLYCO ####[facility] [address] [place] [address] Lab Director: Wil Swanson MD#### SED, PRCAL, MYCM, CDP, BMPX, TROPI, GLYHGB, IOCAL, LACTIC, CRP ####[address] [place], [place] [id number] Lab Director: Ramiro Mark MD Chloride [Moles/Vol] 103 mmol/L Normal 98-107 [facility] Comment on above: Performed By: #### A GLYCO ####[facility] [address] [place] [address] Lab Director: Wil Swanson MD#### SED, PRCAL, MYCM, CDP, BMPX, TROPI, GLYHGB, IOCAL, LACTIC, CRP ####[facility] [address] [place], [place] [id number] Lab Director: Ramiro Mark MD CO2 [Moles/Vol] 22 mmol/L Normal 20-31 [facility] Comment on above: Performed By: #### A GLYCO ####[facility] [address] [place], [place] [phone] Lab Director: Wil Swanson MD#### SED, PRCAL, MYCM, CDP, BMPX, TROPI, GLYHGB, IOCAL, LACTIC, CRP ####[facility] [address]pb[address] [place], [place] [id number] Lab Director: Ramiro Mark MD Creatinine [Mass/Vol] 2.3 mg/dL High 0.7-1.2 [facility] Comment on above: Performed By: #### A GLYCO ####[facility] [address] [place], [place] [id number] Lab Director: Wil Swanson MD#### SED, PRCAL, MYCM, CDP, BMPX, TROPI, GLYHGB, IOCAL, LACTIC, CRP ####[facility] [address] [place], [place] [id number] Lab Director: Ramiro Mark MD GFR/1.73 sq M.predicted among non-blacks MDRD (S/P/Bld) [Vol rate/Area] 34 mL/min/{1.73_m2} Low >60 [facility] Comment on above: Result Comment: Thes e [...] affects renal tubular secretion. Performed By: #### A GLYCO ####[facility] [address] [place] [address] Lab Director: Wil Swanson MD#### SED, PRCAL, MYCM, CDP, BMPX, TROPI, GLYHGB, IOCAL, LACTIC, CRP ####[facility] [address]axoqk[address] [place] [address] Lab Director: Ramiro Mark MD Glucose [Mass/Vol] 316 mg/dL High 74-99 [facility] Comment on above: Performed By: #### A GLYCO ####[address] [place] [address] [id number] Lab Director: Wil Swanson MD#### SED, PRCAL, MYCM, CDP, BMPX, TROPI, GLYHGB, IOCAL, LACTIC, CRP ####[facility] [address] [place] [address] Lab Director: Ramiro Mark MD Potassium [Moles/Vol] 4.2 mmol/L Normal 3.7-5.3 [facility] Comment on above: Performed By: #### A GLYCO ####[facility] [address] [place] [address] Lab Director: Wil Swanson MD#### SED, PRCAL, MYCM, CDP, BMPX, TROPI, GLYHGB, IOCAL, LACTIC, CRP ####[facility] [address] [place] [address] Lab Director: Ramiro Mark MD Sodium [Moles/Vol] 137 mmol/L Normal 136-145 [facility] Comment on above: Performed By: #### A GLYCO ####[facility] [address] [place] [address] [phone] Lab Director: Wil Swanson MD#### SED, PRCAL, MYCM, CDP, BMPX, TROPI, GLYHGB, IOCAL, LACTIC, CRP ####[facility] [address] [place] [address] [phone] Lab Director: Ramiro Mark MD Urea nitrogen [Mass/Vol] 41 mg/dL High 6-20 [facility] Comment on above: Performed By: #### A GLYCO ####[facility] [address] [place] [address] Lab Director: Wil Swanson MD#### SED, PRCAL, MYCM, CDP, BMPX, TROPI, GLYHGB, IOCAL, LACTIC, CRP ####[facility] [address] [place] [address] Lab Director: Ramiro Mark MD Basic Metabolic Panel 12- Anion gap [Moles/Vol] 11 mmol/L 9 - 16 mmol/L [facility] Calcium [Mass/Vol] 7.6 mg/dL Low 8.6 - 10. 4 mg/dL [facility] Chloride [Moles/Vol] 102 mmol/L 98 - 10 7 mmol/L [facility] CO2 [Moles/Vol] 21 mmol/L 20 - 31 mmol/L [facility] Creatinine [Mass/Vol] 2.2 mg/dL High 0.7 - 1.2 mg/dL [facility] Incentive Targeting Est, Glom Filt Rate 36 Low - PINF [facility] Glucose [Mass/Vol] 415 mg/dL Critically high 74 - 9 9 mg/dL [facility] Interpretation and review of laboratory results Abnormal [facility] Potassium [Moles/Vol] 3.8 mmol/L 3.7 - 5.3 mmol/L [facility] Sodium [Moles/Vol] 134 mmol/L Low 136 - 145 mmol/L [facility] Urea nitrogen [Mass/Vol] 37 mg/dL High 6 - 20 mg/dL [facility] Anion gap [Moles/Vol] 10 mmol/L 9 - 16 mmol/L [facility] Calcium [Mass/Vol] 8.5 mg/dL Low 8.6 - 10. 4 mg/dL [facility] Chloride [Moles/Vol] 104 mmol/L 98 - 10 7 mmol/L [facility] CO2 [Moles/Vol] 22 mmol/L 20 - 31 mmol/L [facility] Creatinine [Mass/Vol] 2.3 mg/dL High 0.7 - 1.2 mg/dL [facility] Est, Glom Filt Rate 34 Low - PINF [facility] Glucose [Mass/Vol] 241 mg/dL High 74 - 99 mg/dL [facility] Potassium [Moles/Vol] 3.9 mmol/L 3.7 - 5.3 mmol/L [facility] Sodium [Moles/Vol] 136 mmol/L 136 - 145 mmol/L [facility] Urea nitrogen [Mass/Vol] 40 mg/dL High 6 - 20 mg/dL [facility] Basic Metabolic Panel w/ Ref jose to MGon 09-28-2024 Anion gap [Moles/Vol] 12 mmol/L 9 - 16 mmol/L [facility] Calcium [Mass/Vol] 8.5 mg/dL Low 8.6 - 10. 4 mg/dL [facility] Chloride [Moles/Vol] 103 mmol/L 98 - 10 7 mmol/L [facility] CO2 [Moles/Vol] 22 mmol/L 20 - 31 mmol/L [facility] Creatinine [Mass/Vol] 2.3 mg/dL High 0.7 - 1.2 mg/dL [facility] Est, Glom Filt Rate 34 Low - PINF [facility] Glucose [Mass/Vol] 316 mg/dL High 74 - 99 mg/dL [facility] Potassium [Moles/Vol] 4.2 mmol/L 3.7 - 5.3 mmol/L [facility] Sodium [Moles/Vol] 137 mmol/L 136 - 145 mmol/L [facility] Urea nitrogen [Mass/Vol] 41 mg/dL High 6 - 20 mg/dL [facility] Basic Metabolic Profon 09-28 Anion gap [Moles/Vol] 11 mmol/L Normal 9-16 [facility] Comment on above: Performed By: #### L ACTIC, BMP, MG, CHELO ####[facility] [address] [place] [address] [facility] Director: Ramiro Mark MD Calcium [Mass/Vol] 7.6 mg/dL Low 8.6-10.4 [facility] Comment on above: Performed By: #### L ACTIC, BMP, MG, CHELO ####[facility] [address] [place] [address] Lab Director: Ramiro Mark MD Chloride [Moles/Vol] 102 mmol/L Normal 98-107 [facility] Comment on above: Performed By: #### L ACTIC, BMP, MG, CHELO ####[facility] [address] [place], [place] [phone] Director: Ramiro Mark MD CO2 [Moles/Vol] 21 mmol/L Normal 20-31 [facility] Comment on above: Performed By: #### L ACTIC, BMP, MG, CHELO ####[facility] [address] [place] [address] Lab Director: Ramiro Mark MD Creatinine [Mass/Vol] 2.2 mg/dL High 0.7-1.2 [facility] Comment on above: Performed By: #### L ACTIC, BMP, MG, CHELO ####[facility] [address] [place] [address] Lab Director: Ramiro Mark MD GFR/1.73 sq M.predicted among non-blacks MDRD (S/P/Bld) [Vol rate/Area] 36 mL/min/{1.73_m2} Low >60 [facility] Comment on above: Result Comment: Thes e [...] renal tubular secretion. Performed By: #### L ACTIC, BMP, MG, CHELO ####[facility] [address] [place] [address] Lab Director: Ramiro Mark MD Glucose [Mass/Vol] 415 mg/dL Critically high 74-99 [facility] Comment on above: Performed By: #### L ACTIC, BMP, MG, CHELO ####[facility] [address] [place] [address] Lab Director: Ramiro Mark MD Potassium [Moles/Vol] 3.8 mmol/L Normal 3.7-5.3 [facility] Comment on above: Performed By: #### L ACTIC, BMP, MG, CHELO ####[facility] [address] [place] [address] Lab Director: Ramiro Mark MD Sodium [Moles/Vol] 134 mmol/L Low 136-145 [facility] Comment on above: Performed By: #### L ACTIC, BMP, MG, CHELO ####[facility] [address] [place] [address] Lab Director: Ramiro Mark MD Urea nitrogen [Mass/Vol] 37 mg/dL High 6-20 [facility] Comment on above: Performed By: #### L ACTIC, BMP, MG, CHELO ####[facility] [address] [place] [address] Lab Director: Ramiro Mark MD Anion gap [Moles/Vol] 10 mmol/L Normal 9-16 [facility] Comment on above: Performed By: #### L ACTIC, BMP, TROPI, MG, CHELO ####[facility] [address] [place] [address] Lab Director: Ramiro Mark MD Calcium [Mass/Vol] 8.5 mg/dL Low 8.6-10.4 [facility] Comment on above: Performed By: #### L ACTIC, BMP, TROPI, MG, CHELO ####[facility] [address] [place] [address] Lab Director: Ramiro Mark MD Chloride [Moles/Vol] 104 mmol/L Normal 98-107 [facility] Comment on above: Performed By: #### L ACTIC, BMP, TROPI, MG, CHELO ####[facility] [address] [place] [address] Lab Director: Ramiro Mark MD CO2 [Moles/Vol] 22 mmol/L Normal 20-31 [facility] Comment on above: Performed By: #### L ACTIC, BMP, TROPI, MG, CHELO ####[facility] [address] [place] [address] Lab Director: Ramiro Mark MD Creatinine [Mass/Vol] 2.3 mg/dL High 0.7-1.2 [facility] Comment on above: Performed By: #### L ACTIC, BMP, TROPI, MG, CHELO ####[facility] [address] [place], [place] [address])[phone] Director: Ramiro Mark MD GFR/1.73 sq M.predicted among non-blacks MDRD (S/P/Bld) [Vol rate/Area] 34 mL/min/{1.73_m2} Low >60 [facility] Comment on above: Result Comment: Thes e [...] renal tubular secretion. Performed By: #### L ACTIC, BMP, TROPI, MG, CHELO ####[facility] [address] [place] [address] Lab Director: Ramiro Mark MD Glucose [Mass/Vol] 241 mg/dL High 74-99 [facility] Comment on above: Performed By: #### L ACTIC, BMP, TROPI, MG, CHELO ####[address] [place] [address] Lab Director: Ramiro Mark MD Potassium [Moles/Vol] 3.9 mmol/L Normal 3.7-5.3 [facility] Comment on above: Result Comment: Spec imen hemolysis has exceeded the interference as defined by Jaime. Value may be falsely increased. Suggest recollection if clinically indicated. Performed By: #### L ACTIC, BMP, TROPI, MG, CHELO ####[facility] [address] [place] [address] Lab Director: Ramiro Mark MD Sodium [Moles/Vol] 136 mmol/L Normal 136-145 [facility] Comment on above: Performed By: #### L ACTIC, BMP, TROPI, MG, CHELO ####[address] [address] Lab Director: Ramiro Mark MD Urea nitrogen [Mass/Vol] 40 mg/dL High 6-20 [facility] Comment on above: Performed By: #### L ACTIC, BMP, TROPI, MG, CHELO ####[address] [address] Lab Director: Ramiro Mark MD GFR/1.73 sq M.predicted among non-blacks MDRD (S/P/Bld) [Vol rate/Area] 56 mL/min/{1.73_m2} Low >60 [facility] Comment on above: Result Comment: These [...] secretion. Performed By: #### B MP #### [facility] [address] [place] [address] Comparator Operator: Ramiro Santillan MD Anion gap [Moles/Vol] 15 mmol/L Normal 9-16 [facility] Comment on above: Performed By: #### B MP #### [facility] [address] [place], [place] [id number] Comparator Operator: Ramiro Santillan MD BUN/CRE Ratio 22 High 9-20 [facility] Comment on above: Performed By: #### B MP #### [facility] [address] [place], [place] [id number] Comparator Operator: Ramiro Santillan MD Calcium [Mass/Vol] 6.1 mg/dL Low 8.6-10.4 [facility] Comment on above: Performed By: #### B MP #### [facility] [address] [place], [place] [id number] Comparator Operator: Ramiro Santillan MD Chloride [Moles/Vol] 99 mmol/L Normal 98-107 [facility] Comment on above: Performed By: #### B MP #### [facility] [address] [place] [address] Comparator Operator: Ramiro Santillan MD CO2 [Moles/Vol] 15 mmol/L Low 20-31 [facility] Comment on above: Performed By: #### B MP #### [facility] [address] [place] [address] Comparator Operator: Ramiro Santillan MD Creatinine [Mass/Vol] 1.5 mg/dL High 0.70-1.20 [facility] Comment on above: Performed By: #### B MP #### [facility] [address] [place] [address] Comparator Operator: Ramiro Santillan MD Glucose [Mass/Vol] 657 mg/dL Critically high 74-99 [facility] Comment on above: Performed By: #### B MP #### [facility] [address] [place] [address] Comparator Operator: Ramiro Santillan MD Potassium [Moles/Vol] 3.6 mmol/L Low 3.7-5.3 [facility] Comment on above: Result Comment: Spec imen hemolysis has exceeded the interference as defined by Jaime. Value may be falsely increased. Suggest recollection if clinically indicated. Performed By: #### B MP #### [facility] [address] [place] [address] [place] [address] Comparator Operator: Ramiro Santillan MD Sodium [Moles/Vol] 129 mmol/L Low 136-145 [facility] Comment on above: Performed By: #### B MP #### [address] [place] [address] Comparator Operator: Ramiro Santillan MD Urea nitrogen [Mass/Vol] 33 mg/dL High 6-20 [facility] Comment on above: Performed By: #### B MP #### [facility] [address] [place] [address] [place] [address] Comparator Operator: Ramiro Santillan MD Beta Hydroxybutyrateon 09-28 Beta Hydroxybutyrate 2.64 mmol/L High 0.02-0.27 [facility] Comment on above: Performed By: #### B H #### [facility] [address] [place] [address] [place] [address] Comparator Operator: Ramiro Santillan MD Beta-Hydroxybutyrateon 09-28 Beta hydroxybutyrate [Mass/Vol] 2.64 mmol/L High 0.02 - 0.27 mmol/L [facility] Interpretation and review of laboratory results Abnormal [facility] Blood Gas, Arterialon 2023 Arterial patency Wrist artery --pre arterial puncture YES [facility] Body site Left Radial Artery [facility] HCO3 (Bld) [Moles/Vol] 20.6 mmol/L Low 22 - 26 mmol/L [facility] Interpretation and review of laboratory results Abnormal [facility] Negative Base Excess, Art 3.7 mmol/L High 0.0 - 2.0 mmol/L [facility] Oxygen gas flow Oxygen delivery system ROOM AIR [facility] Oxygen saturation in Blood 94.5 % Low 95 - 98 % [facility] Oxygen/Inspired gas Respiratory system --on ventilator 21 [facility] pCO2, Art, Temp Adj 35.2 35.0 - 45.0 [facility] pCO2, Arterial 35.2 [facility] pH, Art, Temp Adj 7.385 7.350 - 7.450 [facility] pH, Arterial 7.385 7.35 - 7.45 [facility] pO2, Art, Temp Adj 72.2 Low [facility] pO2, Arterial 72.2 Low [facility] Blood Gas, Venouson 09-28-20 Arterial patency Wrist artery --pre arterial puncture NOT APPLICABLE [facility] HCO3 (Bld) [Moles/Vol] 21.0 mmol/L Low 24.0 - 30.0 mmol/L [facility] Interpretation and review of laboratory results Abnormal [facility] Negative Base Excess, Mc 4.3 mmol/L High 0.0 - 2.0 mmol/L [facility] Oxygen gas flow Oxygen delivery system VENTILATOR [facility] Oxygen saturation in Blood 99.0 % High 60.0 - 85.0 % [facility] Oxygen/Inspired gas Respiratory system --on ventilator 35 [facility] pCO2, Mc 39.8 [facility] pCO2, Mc, Temp Adj 39.8 [facility] pH, Mc 7.341 7.32 - 7.42 [facility] pH, Mc, Temp Adj 7.341 7.320 - 7.420 [facility] PO2, Mc 164.8 High [facility] pO2, Mc, Temp Adj 164.8 High [facility] Brain Natri. Peptideon 09-28 Natriuretic peptide B (Bld) [Mass/Vol] 964 pg/mL High 0-125 [facility] Comment on above: Performed By: #### T SUSAN RAYMOND, CHIQUI, PT, BNP, CP #### [facility] [address] [place] [address] Comparator Operator: Ramiro Santillan MD Brain Natriuretic Peptideon 09-28-2024 Natriuretic peptide B (Bld) [Mass/Vol] 964 pg/mL High 0 - 125 pg/mL [facility] C-Reactive Proteinon 024 CRP High sensitivity method [Mass/Vol] 8.9 mg/L High 0.0 - 5.0 mg/L [facility] CRP [Mass/Vol] 8.9 mg/L High 0.0-5.0 [facility] Comment on above: Performed By: #### A GLYCO ####[facility] [address] [place] [address] Lab Director: Wil Swanson MD#### SED, PRCAL, MYCM, CDP, BMPX, TROPI, GLYHGB, IOCAL, LACTIC, CRP ####[facility] [address] [place], [place] [id number] Lab Director: Ramiro Mark MD CBCon 09-28-2024 Erythrocyte distribution width (RBC) [Ratio] 13.0 % 11.8 - 14.4 % [facility] Hematocrit (Bld) [Volume fraction] 28.8 % Low 40.7 - 50.3 % [facility] Hemoglobin (Bld) [Mass/Vol] 9.5 g/dL Low 13.0 - 17.0 g/dL [facility] Interpretation and review of laboratory results Abnormal [facility] MCH (RBC) [Entitic mass] 28.5 pg 25.2 - 33.5 pg [facility] MCHC (RBC) [Mass/Vol] 33.0 g/dL 28.4 - 34.8 g/dL [facility] MCV (RBC) [Entitic vol] 86.5 fL 82.6 - 102.9 fL [facility] Nucleated RBC/100 WBC (Bld) [Ratio] 0.0 % 0.0 per 100 WBC [facility] Platelet mean volume (Bld) [Entitic vol] 10.4 fL 8.1 - 13.5 fL [facility] Platelets (Bld) [#/Vol] 226 10*3/uL [facility] RBC (Bld) [#/Vol] 3.33 10*6/uL Low 4.21 - 5.7 7 m/uL [facility] WBC other (Bld) [#/Vol] 17.2 High [facility] Erythrocyte distribution width (RBC) [Ratio] 13.0 % Normal 11.8-14.4 [facility] Comment on above: Performed By: #### H EPXA, CBC, PT, PTT ####[facility] [address] [place] [address] Lab Director: Ramiro Mark MD Hematocrit (Bld) [Volume fraction] 28.8 % Low 40.7-50.3 [facility] Comment on above: Performed By: #### H EPXA, CBC, PT, PTT ####[facility] [address]mf[address]kxgsry6899 [place] [address] Lab Director: Ramiro Mark MD Hemoglobin (Bld) [Mass/Vol] 9.5 g/dL Low 13.0-17.0 [facility] Comment on above: Performed By: #### H EPXA, CBC, PT, PTT ####[employer] [address] [place] [address] Lab Director: Ramiro Mark MD MCH (RBC) [Entitic mass] 28.5 pg Normal 25.2-33.5 [facility] Comment on above: Performed By: #### H EPXA, CBC, PT, PTT ####[facility] [address] [place] [address] Lab Director: Ramiro Mark MD MCHC (RBC) [Mass/Vol] 33.0 g/dL Normal 28.4-34.8 [facility] Comment on above: Performed By: #### H EPXA, CBC, PT, PTT ####[facility] [address] [place], [place] [address])[phone] Director: Ramiro Mark MD MCV (RBC) [Entitic vol] 86.5 fL Normal 82.6-102.9 [facility] Comment on above: Performed By: #### H EPXA, CBC, PT, PTT ####[address] [address])[phone] Director: Ramiro Mark MD NRBC Automated 0.0 per 100 WBC Normal 0.0 [facility] Comment on above: Performed By: #### H EPXA, CBC, PT, PTT ####[address] [address])[phone] Director: Ramiro Mark MD Platelet mean volume (Bld) [Entitic vol] 10.4 fL Normal 8.1-13.5 [facility] Comment on above: Performed By: #### H EPXA, CBC, PT, PTT ####[address] [address])[phone] Director: Ramiro Mark MD Platelets (Bld) [#/Vol] 226 10*3/uL Normal 138-453 [facility] Comment on above: Performed By: #### H EPXA, CBC, PT, PTT ####[address] [address])[phone] Director: Ramiro Mark MD RBC (Bld) [#/Vol] 3.33 10*6/uL Low 4.21-5.77 [facility] Comment on above: Performed By: #### H EPXA, CBC, PT, PTT ####[facility] [address] [place], [place] [address])[phone] Director: Ramiro Mark MD WBC (Bld) [#/Vol] 17.2 10*3/uL High 3.5-11.3 [facility] Comment on above: Performed By: #### H EPXA, CBC, PT, PTT ####[facility] [address] [place] [address] lab Director: Ramiro Mark MD CBC with Auto Differentialon 09-28-2024 Basophils (Bld) [#/Vol] 0.06 10*3/uL [facility] Basophils/100 WBC (Bld) 0 % 0 - 2 % [facility] Eosinophils (Bld) [#/Vol] [facility] Eosinophils/100 WBC (Bld) 0 % Low 1 - 4 % [facility] Erythrocyte distribution width (RBC) [Ratio] 13.0 % 11.8 - 14.4 % [facility] Hematocrit (Bld) [Volume fraction] 27.4 % Low 40.7 - 50.3 % [facility] Hemoglobin (Bld) [Mass/Vol] 9.6 g/dL Low 13.0 - 17.0 g/dL [facility] Immature granulocytes (Bld) [#/Vol] 0.06 10*3/uL [facility] Immature granulocytes/100 WBC (Bld) 0 % 0 [facility] Interpretation and review of laboratory results Abnormal [facility] Lymphocytes/100 WBC (Bld) 5 % Low 24 - 43 % [facility] Lymphocytes/100 WBC (Bld) 0.78 % Low [facility] MCH (RBC) [Entitic mass] 28.7 pg 25.2 - 33.5 pg [facility] MCHC (RBC) [Mass/Vol] 35.0 g/dL High 28.4 - 34.8 g/dL [facility] MCV (RBC) [Entitic vol] 82.0 fL Low 82.6 - 102.9 fL [facility] Monocytes/100 WBC (Bld) 8 % 3 - 12 % [facility] Monocytes/100 WBC (Bld) 1.35 % High [facility] Neutrophils/100 WBC (Bld) 87 % High 36 - 65 % [facility] Nucleated RBC/100 WBC (Bld) [Ratio] 0.0 % 0.0 per 100 WBC [facility] Platelet mean volume (Bld) [Entitic vol] 10.5 fL 8.1 - 13.5 fL [facility] Platelets (Bld) [#/Vol] 240 10*3/uL [facility] RBC (Bld) [#/Vol] 3.34 10*6/uL Low 4.21 - 5.7 7 m/uL [facility] RBC (Bld) [#/Vol] MICROCYTOSIS PRESENT [facility] Segmented neutrophils/100 WBC (Bld) 14.81 % High [facility] WBC other (Bld) [#/Vol] 17.1 High [facility] Basophils (Bld) [#/Vol] 0.33 10*3/uL High [facility] Basophils/100 WBC (Bld) 2 % 0 - 2 % [facility] Eosinophils (Bld) [#/Vol] 0.00 10*3/uL [facility] Eosinophils/100 WBC (Bld) 0 % Low 1 - 4 % [facility] Erythrocyte distribution width (RBC) [Ratio] 12.8 % 11.8 - 14.4 % [facility] Hematocrit (Bld) [Volume fraction] 34.5 % Low 40.7 - 50.3 % [facility] Hemoglobin (Bld) [Mass/Vol] 12.1 g/dL Low 13.0 - 17.0 g/dL [facility] Immature granulocytes (Bld) [#/Vol] 0.00 10*3/uL [facility] Immature granulocytes/100 WBC (Bld) 0 % 0 [facility] Interpretation and review of laboratory results Abnormal [facility] Lymphocytes/100 WBC (Bld) 2 % Low 24 - 43 % [facility] Lymphocytes/100 WBC (Bld) 0.33 % Low [facility] MCH (RBC) [Entitic mass] 28.8 pg 25.2 - 33.5 pg [facility] MCHC (RBC) [Mass/Vol] 35.1 g/dL High 28.4 - 34.8 g/dL [facility] MCV (RBC) [Entitic vol] 82.1 fL Low 82.6 - 102.9 fL [facility] Monocytes/100 WBC (Bld) 2 % Low 3 - 12 % [facility] Monocytes/100 WBC (Bld) 0.33 % [facility] Morphology Everardo (Bld) [Interp] Normal [facility] Neutrophils/100 WBC (Bld) 94 % High 36 - 65 % [facility] Nucleated RBC/100 WBC (Bld) [Ratio] 0.0 % 0.0 per 100 WBC [facility] Platelet mean volume (Bld) [Entitic vol] 10.9 fL 8.1 - 13.5 fL [facility] Platelets (Bld) [#/Vol] 291 10*3/uL [facility] RBC (Bld) [#/Vol] 4.20 10*6/uL Low 4.21 - 5.7 7 m/uL [facility] Segmented neutrophils/100 WBC (Bld) 15.71 % High [facility] WBC other (Bld) [#/Vol] 16.7 High [facility] CBC with Diffon 09-28-2024 Abs. Basophil 0.06 k/uL Normal 0.00-0.20 [facility] Comment on above: Performed By: #### A GLYCO ####[facility] [address] [place], [place] [id number] Lab Director: Wil Swanson MD#### SED, PRCAL, MYCM, CDP, BMPX, TROPI, GLYHGB, IOCAL, LACTIC, CRP ####[facility] [address] [place], [place] [id number] Lab Director: Ramiro Mark MD Abs. Eosinophil <0.03 Normal 0.00-0.44 [facility] Comment on above: Performed By: #### A GLYCO ####[facility] [address] [place], [place] [id number] Lab Director: Wil Swanson MD#### SED, PRCAL, MYCM, CDP, BMPX, TROPI, GLYHGB, IOCAL, LACTIC, CRP ####[facility] [address] [place] [address] Lab Director: Ramiro Mark MD Abs.Imm.Granulocyte 0.06 k/uL Normal 0.00-0.30 [facility] Comment on above: Performed By: #### A GLYCO ####[facility] [address] [place] [address] Lab Director: Wil Swanson MD#### SED, PRCAL, MYCM, CDP, BMPX, TROPI, GLYHGB, IOCAL, LACTIC, CRP ####[place] [address] Lab Director: Ramiro Mark MD Abs.Neutrophil (Seg) 14.81 k/uL High 1.50-8.10 [facility] Comment on above: Performed By: #### A GLYCO ####[facility] [address] [place] [address] Lab Director: Wil Swanson MD#### SED, PRCAL, MYCM, CDP, BMPX, TROPI, GLYHGB, IOCAL, LACTIC, CRP ####[place] [address] Lab Director: Ramiro Mark MD Basophils/100 WBC (Bld) 0 % Normal 0-2 [facility] Comment on above: Performed By: #### A GLYCO ####[facility] [address] [place] [address] Lab Director: Wil Swanson MD#### SED, PRCAL, MYCM, CDP, BMPX, TROPI, GLYHGB, IOCAL, LACTIC, CRP ####[facility] [address] [place], [place] [id number] Lab Director: Ramiro Mark MD Eosinophils/100 WBC (Bld) 0 % Low 1-4 [facility] Comment on above: Performed By: #### A GLYCO ####[facility] [address] [place] [address] Lab Director: Wil Swanson MD#### SED, PRCAL, MYCM, CDP, BMPX, TROPI, GLYHGB, IOCAL, LACTIC, CRP ####[facility] [address] [place] [address] [id number] Lab Director: Ramiro Mark MD Erythrocyte distribution width (RBC) [Ratio] 13.0 % Normal 11.8-14.4 [facility] Comment on above: Performed By: #### A GLYCO ####[facility] [address] [place] [address] Lab Director: Wil Swanson MD#### SED, PRCAL, MYCM, CDP, BMPX, TROPI, GLYHGB, IOCAL, LACTIC, CRP ####[address] [id number] Lab Director: Ramiro Mark MD Hematocrit (Bld) [Volume fraction] 27.4 % Low 40.7-50.3 [facility] Comment on above: Performed By: #### A GLYCO ####[facility] [address] [place] [address] [id number] Lab Director: Wil Swanson MD#### SED, PRCAL, MYCM, CDP, BMPX, TROPI, GLYHGB, IOCAL, LACTIC, CRP ####[facility] [address] [place], [place] [id number] Lab Director: Ramiro Mark MD Hemoglobin (Bld) [Mass/Vol] 9.6 g/dL Low 13.0-17.0 [facility] Comment on above: Performed By: #### A GLYCO ####[facility] [address] [place] [address] [id number] Lab Director: Wil Swanson MD#### SED, PRCAL, MYCM, CDP, BMPX, TROPI, GLYHGB, IOCAL, LACTIC, CRP ####[facility] [address] [place] [address] Lab Director: Ramiro Mark MD Immature granulocytes/100 WBC (Bld) 0 % Normal 0 [facility] Comment on above: Performed By: #### A GLYCO ####[facility] [address] [place] [address] Lab Director: Wil Swanson MD#### SED, PRCAL, MYCM, CDP, BMPX, TROPI, GLYHGB, IOCAL, LACTIC, CRP ####[place] [address] Lab Director: Ramiro Mark MD Lymphocytes (Bld) [#/Vol] 0.78 10*3/uL Low 1.10-3.70 [facility] Comment on above: Performed By: #### A GLYCO ####[facility] [address] [place] [address] Lab Director: Wil Swanson MD#### SED, PRCAL, MYCM, CDP, BMPX, TROPI, GLYHGB, IOCAL, LACTIC, CRP ####[place] [address] Lab Director: Ramiro Mark MD Lymphocytes/100 WBC (Bld) 5 % Low 24-43 [facility] Comment on above: Performed By: #### A GLYCO ####[facility] [address] [place] [address] Lab Director: Wil Swanson MD#### SED, PRCAL, MYCM, CDP, BMPX, TROPI, GLYHGB, IOCAL, LACTIC, CRP ####[facility] [address] [place] [address] [id number] Lab Director: Ramiro Mark MD MCH (RBC) [Entitic mass] 28.7 pg Normal 25.2-33.5 [facility] Comment on above: Performed By: #### A GLYCO ####[facility] [address] [place], [place] [phone] Lab Director: Wil Swanson MD#### SED, PRCAL, MYCM, CDP, BMPX, TROPI, GLYHGB, IOCAL, LACTIC, CRP ####[facility] [address] [place], [place] [id number] Lab Director: Ramiro Mark MD MCHC (RBC) [Mass/Vol] 35.0 g/dL High 28.4-34.8 [facility] Comment on above: Performed By: #### A GLYCO ####[facility] [address] [place] [address] [id number] Lab Director: Wil Swanson MD#### SED, PRCAL, MYCM, CDP, BMPX, TROPI, GLYHGB, IOCAL, LACTIC, CRP ####[facility] [address] [place] [address] Lab Director: Ramiro Mark MD MCV (RBC) [Entitic vol] 82.0 fL Low 82.6-102.9 [facility] Comment on above: Performed By: #### A GLYCO ####[facility] [address] [place] [address] [id number] Lab Director: Wil Swanson MD#### SED, PRCAL, MYCM, CDP, BMPX, TROPI, GLYHGB, IOCAL, LACTIC, CRP ####[facility] [address] [place], [place] [id number] Lab Director: Ramiro Mark MD Monocytes (Bld) [#/Vol] 1.35 10*3/uL High 0.10-1.20 [facility] Comment on above: Performed By: #### A GLYCO ####[facility] [address] [place] [address] Lab Director: Wil Swanson MD#### SED, PRCAL, MYCM, CDP, BMPX, TROPI, GLYHGB, IOCAL, LACTIC, CRP ####[facility] [address] [place] [address] Lab Director: Ramiro Mark MD Monocytes/100 WBC (Bld) 8 % Normal 3-12 [facility] Comment on above: Performed By: #### A GLYCO ####[facility] [address] [place] [address] Lab Director: Wil Swanson MD#### SED, PRCAL, MYCM, CDP, BMPX, TROPI, GLYHGB, IOCAL, LACTIC, CRP ####[address] [phone] Lab Director: Ramiro Mark MD Neutrophil (Seg) 87 % High 36-65 [facility] Comment on above: Performed By: #### A GLYCO ####[facility] [address] [place] [address] Lab Director: Wil Swanson MD#### SED, PRCAL, MYCM, CDP, BMPX, TROPI, GLYHGB, IOCAL, LACTIC, CRP ####[facility] [address] [place] [address] [phone] Lab Director: Ramiro Mark MD NRBC Automated 0.0 per 100 WBC Normal 0.0 [facility] Comment on above: Performed By: #### A GLYCO ####[facility] [address] [place] [address] Lab Director: Wil Swanson MD#### SED, PRCAL, MYCM, CDP, BMPX, TROPI, GLYHGB, IOCAL, LACTIC, CRP ####[facility] [address] [place], [place] [phone] Lab Director: Ramiro Mark MD Platelet mean volume (Bld) [Entitic vol] 10.5 fL Normal 8.1-13.5 [facility] Comment on above: Performed By: #### A GLYCO ####[facility] [address] [place] [address] Lab Director: Wil Swanson MD#### SED, PRCAL, MYCM, CDP, BMPX, TROPI, GLYHGB, IOCAL, LACTIC, CRP ####[facility] [address] [place] [address] Lab Director: Ramiro Mark MD Platelets (Bld) [#/Vol] 240 10*3/uL Normal 138-453 [facility] Comment on above: Performed By: #### A GLYCO ####[facility] [address] [place] [address] Lab Director: Wil Swanson MD#### SED, PRCAL, MYCM, CDP, BMPX, TROPI, GLYHGB, IOCAL, LACTIC, CRP ####[address] [address] Lab Director: Ramiro Mark MD RBC (Bld) [#/Vol] 3.34 10*6/uL Low 4.21-5.77 [facility] Comment on above: Performed By: #### A GLYCO ####[facility] [address] [place] [address] Lab Director: Wil Swanson MD#### SED, PRCAL, MYCM, CDP, BMPX, TROPI, GLYHGB, IOCAL, LACTIC, CRP ####[facility] [address] [place] [address] Lab Director: Ramiro Mark MD RBC morphology finding Nom (Bld) MICROCYTOSIS PRESENT Normal [facility] Comment on above: Performed By: #### A GLYCO ####[facility] [address] [place] [address] [phone] [facility] Director: Wil Swanson MD#### SED, PRCAL, MYCM, CDP, BMPX, TROPI, GLYHGB, IOCAL, LACTIC, CRP ####[facility] [address] [place], [place] [id number] Lab Director: Ramiro Mark MD WBC (Bld) [#/Vol] 17.1 10*3/uL High 3.5-11.3 [facility] Comment on above: Performed By: #### A GLYCO ####[facility] [address] [place], [place] [phone] [facility] Director: Wil Swanson MD#### SED, PRCAL, MYCM, CDP, BMPX, TROPI, GLYHGB, IOCAL, LACTIC, CRP ####[facility] [address] [place], [place] [phone] Lab Director: Ramiro Mark MD Abs. Basophil 0.33 k/uL High 0.0-0.2 [facility] Comment on above: Performed By: #### B H #### [facility] [address] [place] [address] [place]. [place] [phone] Comparator Operator: Ramiro Santillan MD Abs.Imm.Granulocyte 0.00 k/uL Normal 0.00-0.30 [facility] Comment on above: Performed By: #### B H #### [address] [place], [facility] Comparator Operator: Ramiro Santillan MD Abs.Neutrophil (Seg) 15.71 k/uL High 1.50-8.10 [facility] Comment on above: Performed By: #### B H #### [address] [place] [address] Comparator Operator: Ramiro Santillan MD Basophils/100 WBC (Bld) 2 % Normal 0-2 [facility] Comment on above: Performed By: #### B H #### [facility] [address] [place], [facility]83 Comparator Operator: Ramiro Santillan MD Eosinophils (Bld) [#/Vol] 0.00 10*3/uL Normal 0.00-0.44 [facility] Comment on above: Performed By: #### B H #### [facility] [address] [place], [facility]83 Comparator Operator: Ramiro Santillan MD Eosinophils/100 WBC (Bld) 0 % Low 1-4 [facility] Comment on above: Performed By: #### B H #### [facility] [address] [place], [facility]83 Comparator Operator: Ramiro Santillan MD Immature granulocytes/100 WBC (Bld) 0 % Normal 0 [facility] Comment on above: Performed By: #### B H #### [facility] [address] [place], [facility]83 Comparator Operator: Ramiro Santillan MD Lymphocytes (Bld) [#/Vol] 0.33 10*3/uL Low 1.10-3.70 [facility] Comment on above: Performed By: #### B H #### [address] [place], [facility]83 Comparator Operator: Ramiro Santillan MD Lymphocytes/100 WBC (Bld) 2 % Low 24-43 [facility] Comment on above: Performed By: #### B H #### [facility] [address] [place], [facility]83 Comparator Operator: Ramiro Santillan MD Monocytes (Bld) [#/Vol] 0.33 10*3/uL Normal 0.10-1.20 [facility] Comment on above: Performed By: #### B H #### [facility] [address] [place] [address] Comparator Operator: Ramiro Santillan MD Monocytes/100 WBC (Bld) 2 % Low 3-12 [facility] Comment on above: Performed By: #### B H #### [facility] [address] [place] [address] Dr. [place], [facility]83 Comparator Operator: Ramiro Santillan MD Morphology Everardo (Bld) [Interp] Normal Normal [facility] Comment on above: Performed By: #### B H #### [address] [place] [facility]83 Comparator Operator: Ramiro Santillan MD Neutrophil (Seg) 94 % High 36-65 [facility] Comment on above: Performed By: #### B H #### [address] [place] [facility]83 Comparator Operator: Ramiro Santillan MD Erythrocyte distribution width (RBC) [Ratio] 12.8 % Normal 11.8-14.4 [facility] Comment on above: Performed By: #### B H #### [address] [place] [facility]83 Comparator Operator: Ramiro Santillan MD Hematocrit (Bld) [Volume fraction] 34.5 % Low 40.7-50.3 [facility] Comment on above: Performed By: #### B H #### [address] [place] [facility]83 Comparator Operator: Ramiro Santillan MD Hemoglobin (Bld) [Mass/Vol] 12.1 g/dL Low 13.0-17.0 [facility] Comment on above: Performed By: #### B H #### [address] [place] [facility]83 Comparator Operator: Ramiro Santillan MD MCH (RBC) [Entitic mass] 28.8 pg Normal 25.2-33.5 [facility] Comment on above: Performed By: #### B H #### [address] [place] [facility]83 Comparator Operator: Ramiro Santillan MD MCHC (RBC) [Mass/Vol] 35.1 g/dL High 28.4-34.8 [facility] Comment on above: Performed By: #### B H #### [address] [place] [id number] Comparator Operator: Ramiro Santillan MD MCV (RBC) [Entitic vol] 82.1 fL Low 82.6-102.9 [facility] Comment on above: Performed By: #### B H #### [address] [place], [place] [id number] Comparator Operator: Ramiro Santillan MD NRBC Automated 0.0 per 100 WBC Normal 0.0 [facility] Comment on above: Performed By: #### B H #### [address] [place], [facility]83 Comparator Operator: Ramiro Santillan MD Platelet mean volume (Bld) [Entitic vol] 10.9 fL Normal 8.1-13.5 [facility] Comment on above: Performed By: #### B H #### [address] [place], [place] [id number] Comparator Operator: Ramiro Santillan MD Platelets (Bld) [#/Vol] 291 10*3/uL Normal 138-453 [facility] Comment on above: Performed By: #### B H #### [facility] [address] [place] [address] Dr. [place], [place] [id number] Comparator Operator: Ramiro Santillan MD RBC (Bld) [#/Vol] 4.20 10*6/uL Low 4.21-5.77 [facility] Comment on above: Performed By: #### B H #### [address] [place], [place] [id number] Comparator Operator: Ramiro Santillan MD WBC (Bld) [#/Vol] 16.7 10*3/uL High 3.5-11.3 [facility] Comment on above: Performed By: #### B H #### [facility] [address] [place] [address] Comparator Operator: MD Charan Powell 09-28-2024 CK [Catalytic activity/Vol] 420 U/L High 39 - 308 U/L [facility] CT CHEST ABDOMEN PELVIS W CO NTRASTon [...] Lito Marie MD 09/28/24 Final result Normal [facility] CT Chest and Abdomen and Pel [...] unremarkable. There is no acute osseous abnormality. [facility] RIS CONSOLIDATED Lito Marie MD - 09/28/2024 [...] adjacent to the pancreas concerning for pancreatitis. [facility] Radiology Study observation (narrative) [facility] CT HEAD WO CONTRASTon 2023 CT HEAD [...] Lito Marie MD 09/28/24 Final result Normal [facility] CT Head WO contraston 2023 No acute intracrania l abnormality. Remote right parietal lobe infarct. PN RIS CONSOLIDATED EXAMINATION: CT OF THE [...] of the visualized skull or soft tissues. [facility] RIS Lito Pisano MD - 09/28/2024 EXAMINATION: CT OF THE [...] intracranial abnormality. Remote right parietal lobe infarct. [facility] Radiology Study observation (narrative) [facility] CT Head WO contrastOrdered B y: Lito Marie on 09-28-2024 [facility] Work Phone: CTA HEAD NECK W CONTRASTon [...] Lito Marie MD 09/28/24 Final result Normal [facility] CTA Head vessels and Neck ve ssels W contrast Karri 09-28-2024 No significant steno sis or evidence for large vessel occlusion. Few partially visualized ground-glass opacities in the left lung concerning for pneumonia. PN RIS CONSOLIDATED EXAMINATION: CTA OF THE HEAD [...] fluid collection. The winkler-white differentiation is maintained. [facility] RIS Lito Pisano MD - 09/28/2024 EXAMINATION: CTA OF THE [...] SYSTEM PROVIDED HISTORY: AMS TECHNOLOGIST PROVIDED HISTORY: [facility] Decision Support Exception - unselect if not [...] in the left lung concerning for pneumonia. [facility] Radiology Study observation (narrative) [facility] Calcium, Ionicon 09-28-2024 Calcium [Moles/Vol] 1.20 mmol/L Normal 1.13-1.33 [facility] Comment on above: Performed By: #### A GLYCO ####[facility] [address] [place] [address] Lab Director: Wil Swanson MD#### SED, PRCAL, MYCM, CDP, BMPX, TROPI, GLYHGB, IOCAL, LACTIC, CRP ####[facility] [address] [place], [place] [id number] Lab Director: Ramiro Mark MD Calcium, Ionizedon Calcium.ionized (Bld) [Moles/Vol] 1.20 mmol/L 1.13 - 1.33 mmol/L [facility] Comp Metabolic Profon 2023 Albumin [Mass/Vol] 4.0 g/dL Normal 3.5-5.2 [facility] Comment on above: Performed By: #### B H #### [facility] [address] [place] [address] Comparator Operator: Ramiro Santillan MD Albumin/Glob Ratio 1.2 Normal 1.0-2.5 [facility] Comment on above: Performed By: #### B H #### [facility] [address] [place] [address] Comparator Operator: Ramiro Santillan MD Alkaline Phos 192 U/L High 40-129 [facility] Comment on above: Performed By: #### B H #### [facility] [address] [place], [place] [id number] Comparator Operator: Ramiro Santillan MD ALT [Catalytic activity/Vol] 24 U/L Normal 10-50 [facility] Comment on above: Performed By: #### B H #### [facility] [address] [place] [address] Comparator Operator: Ramiro Santillan MD Anion gap [Moles/Vol] 18 mmol/L High 9-16 [facility] Comment on above: Performed By: #### B H #### [facility] [address] [place], [place] [id number] Comparator Operator: Ramiro Santillan MD AST [Catalytic activity/Vol] 29 U/L Normal 10-50 [facility] Comment on above: Performed By: #### B H #### [facility] [address] [place] [address] Comparator Operator: Ramiro Santillan MD Bilirubin [Mass/Vol] 0.4 mg/dL Normal 0.00-1.20 [facility] Comment on above: Performed By: #### B H #### [facility] [address] [place] [address] Comparator Operator: Ramiro Santillan MD BUN/CRE Ratio 22 High 9-20 [facility] Comment on above: Performed By: #### B H #### [facility] [address] [place], [place] [id number] Comparator Operator: Ramiro Santillan MD Calcium [Mass/Vol] 9.4 mg/dL Normal 8.6-10.4 [facility] Comment on above: Performed By: #### B H #### [facility] [address] [place] [id number] Comparator Operator: Ramiro Santillan MD Chloride [Moles/Vol] 87 mmol/L Low 98-107 [facility] Comment on above: Performed By: #### B H #### [facility] [address] [place] [address] Comparator Operator: Ramiro Santillan MD CO2 [Moles/Vol] 23 mmol/L Normal 20-31 [facility] Comment on above: Performed By: #### B H #### [facility] [address] [place] [address] Comparator Operator: Ramiro Santillan MD Creatinine [Mass/Vol] 2.0 mg/dL High 0.70-1.20 [facility] Comment on above: Performed By: #### B H #### [facility] [address] [place] [address] Comparator Operator: Ramiro Santillan MD GFR/1.73 sq M.predicted among non-blacks MDRD (S/P/Bld) [Vol rate/Area] 39 mL/min/{1.73_m2} Low >60 [facility] Comment on above: Result Comment: These [...] secretion. Performed By: #### B H #### [facility] [address] [place] [address] Comparator Operator: Ramiro Santillan MD Glucose [Mass/Vol] 820 mg/dL Critically high 74-99 [facility] Comment on above: Performed By: #### B H #### [facility] [address] [place] [address] Comparator Operator: Ramiro Santillan MD Potassium [Moles/Vol] 5.0 mmol/L Normal 3.7-5.3 [facility] Comment on above: Performed By: #### B H #### [facility] [address] [place] [address] Comparator Operator: Ramiro Santillan MD Protein [Mass/Vol] 7.3 g/dL Normal 6.6-8.7 [facility] Comment on above: Performed By: #### B H #### [facility] [address] [place], [place] [id number] Comparator Operator: Ramiro Santillan MD Sodium [Moles/Vol] 128 mmol/L Low 136-145 [facility] Comment on above: Performed By: #### B H #### [facility] [address] [place] [address] Comparator Operator: Ramiro Santillan MD Urea nitrogen [Mass/Vol] 43 mg/dL High 6-20 [facility] Comment on above: Performed By: #### B H #### [facility] [address] [place] [address] Comparator Operator: Ramiro Santillan MD [facility] Metabolic [facility] 09-28-2024 Albumin [Mass/Vol] 4.0 g/dL 3.5 - 5.2 g/dL [facility] Albumin/Globulin [Mass ratio] 1.2 {ratio} 1.0 - 2.5 [facility] ALP [Catalytic activity/Vol] 192 U/L High 40 - 129 U/L [facility] ALT [Catalytic activity/Vol] 24 U/L 10 - 50 U/L [facility] Anion gap [Moles/Vol] 18 mmol/L High 9 - 16 mmol/L [facility] AST [Catalytic activity/Vol] 29 U/L 10 - 50 U/L [facility] Bilirubin [Mass/Vol] 0.4 mg/dL 0.00 - 1.20 mg/dL [facility] Calcium [Mass/Vol] 9.4 mg/dL 8.6 - 10. 4 mg/dL [facility] Chloride [Moles/Vol] 87 mmol/L Low 98 - 10 7 mmol/L [facility] CO2 [Moles/Vol] 23 mmol/L 20 - 31 mmol/L [facility] Creatinine [Mass/Vol] 2.0 mg/dL High 0.70 - 1.20 mg/dL [facility] Est, Glom Filt Rate 39 Low - PINF [facility] Comment on above: These results are not [...] Critically high 74 - 9 9 mg/dL [facility] Interpretation and review of laboratory results Abnormal [facility] Potassium [Moles/Vol] 5.0 mmol/L 3.7 - 5.3 mmol/L [facility] Protein [Mass/Vol] 7.3 g/dL 6.6 - 8.7 g/dL [facility] Sodium [Moles/Vol] 128 mmol/L Low 136 - 145 mmol/L [facility] Urea nitrogen [Mass/Vol] 43 mg/dL High 6 - 20 mg/dL [facility] Urea nitrogen/Creatinine [Mass ratio] 22 mg/mg High 9 - 20 [facility] Creatine Kinaseon 09-28-2024 CK [Catalytic activity/Vol] 420 U/L High 39-308 [facility] Comment on above: Performed By: #### B MP #### [facility] [address] [place] [address] Comparator Operator: Ramiro Santillan MD Drug Scr, Abuse, Uron 2023 Amphetamine(s),Ur Negative Normal NEG [facility] Comment on above: Result Comment: Cuto ff: 1000 ng/mL Performed By: #### B MP #### [facility] [address] [place] [address] Comparator Operator: Ramiro Santillan MD Barbiturate(s),Ur Negative Normal NEG [facility] Comment on above: Result Comment: Cuto ff: 200 ng/ml Performed By: #### B MP #### [facility] [address] [place], [place] [id number] Comparator Operator: Ramiro Santillan MD Benzodiazepine(s) Negative Normal NEG [facility] Comment on above: Result Comment: Cuto ff: 200 ng/ml Performed By: #### B MP #### [facility] [address] [place] [address] Dr[place], [place] [id number] Comparator Operator: Ramiro Santillan MD Buprenorphrine, Ur Negative Normal NEG [facility] Comment on above: Result Comment: Cuto ff: 5 ng/ml Performed By: #### B MP #### [facility] [address] [place] [address] Dr[place], [place] [id number] Comparator Operator: Ramiro Santillan MD Cannabinoid(s),Ur Negative Normal NEG [facility] Comment on above: Result Comment: Cuto ff: 50 ng/ml Performed By: #### B MP #### [facility] [address] [place] [address] [place] [address] Comparator Operator: Ramiro Santillan MD Cocaine Metabolite Negative Normal NEG [facility] Comment on above: Result Comment: Cuto ff: 300 ng/ml Performed By: #### B MP #### [facility] [address] [place], [place] [id number] Comparator Operator: Ramiro Santillan MD Fentanyl, Urine Negative Normal NEG [facility] Comment on above: Result Comment: Cuto ff: 5 ng/ml Performed By: #### B MP #### [facility] [address] [place], [place] [id number] Comparator Operator: Ramiro Santillan MD Interpretive Info This method is a screening test to detect only these drug classes as part of a Normal [facility] Comment on above: Result Comment: medi juvenal workup. Confirmatory testing by another method should be ordered if clinically indicated. Performed By: #### B MP #### [address] [place], [place] [id number] Comparator Operator: Ramiro Santillan MD Methadone Ql (U) Negative Normal NEG [facility] Comment on above: Result Comment: Cuto ff: 300 ng/ml Performed By: #### B MP #### [address] [place], [place] [id number] Comparator Operator: Ramiro Santillan MD Opiate(s), Ur Negative Normal NEG [facility] Comment on above: Result Comment: Cuto ff: 300 ng/ml Note: The Opiate screen is not intended to detect Oxycodone. Performed By: #### B MP #### [address] [place], [place] [id number] Comparator Operator: Ramiro Santillan MD Oxycodone, Urine Negative Normal [facility] Comment on above: Result Comment: Cuto ff: 100 ng/ml Performed By: #### B MP #### [address] [place], [place] 1899183 Comparator Operator: Ramiro Santillan MD Phencyclidine, Ur Negative Normal NEG [facility] Comment on above: Result Comment: Cuto ff: 25 ng/ml Performed By: #### B MP #### [address] [place], [place] [id number] Comparator Operator: Ramiro Santillan MD Glucose, Whole Bloodon 09-28 Glucose [Mass/Vol] 387 mg/dL High 74 - 100 mg/dL [facility] Interpretation and review of laboratory results Abnormal [facility] Glucose [Mass/Vol] 387 mg/dL High 74-100 [facility] Glucose [Mass/Vol] 469 mg/dL High 74 - 100 mg/dL [facility] Interpretation and review of laboratory results Abnormal [facility] Glucose [Mass/Vol] 469 mg/dL High 74-100 [facility] Glucose [Mass/Vol] 543 mg/dL Critically high 74 - 1 00 mg/dL [facility] Interpretation and review of laboratory results Abnormal [facility] Glucose [Mass/Vol] 543 mg/dL Critically high 74-100 [facility] Glucose,Whole Bloodon 2023 Glucose [Mass/Vol] 137 mg/dL High 75-110 [facility] Glucose [Mass/Vol] 472 mg/dL Critically high 75-110 [facility] Comment on above: Result Comment: Martin carvajal Noted Glucose [Mass/Vol] 115 mg/dL High 75-110 [facility] Glucose [Mass/Vol] 126 mg/dL High 75-110 [facility] Glucose [Mass/Vol] 178 mg/dL High 75-110 [facility] Glucose [Mass/Vol] 255 mg/dL High 75-110 [facility] Glucose [Mass/Vol] 289 mg/dL High 75-110 [facility] Glucose [Mass/Vol] 305 mg/dL High 75-110 [facility] Hemoglobin A1Con 09-28-[address] Gluc Sent to reference laboratory. Separate report to follow. Normal [facility] Comment on above: Result Comment: The ADA and AACC recommend providing the estimated average glucose result to permit better patient understanding of their HBA1c result. Performed By: #### A GLYCO ####[facility] [address] [place] [address] Lab Director: Wil Swanson MD#### SED, PRCAL, MYCM, CDP, BMPX, TROPI, GLYHGB, IOCAL, LACTIC, CRP ####[email or web address] [address] [place] [address] Lab Director: Ramiro Mark MD Hemoglobin A1C Sent to reference laboratory. Separate report to follow. Normal 4.0-6.0 [facility] Comment on above: Performed By: #### A GLYCO ####[facility] [address] [place] [address] Lab Director: Wil Swanson MD#### SED, PRCAL, MYCM, CDP, BMPX, TROPI, GLYHGB, IOCAL, LACTIC, CRP ####[facility] [address] [place] [address] [id number] Lab Director: Ramiro Mark MD Hemoglobin A1con 09-28-2024 Average glucose Estimated from glycated hemoglobin (Bld) [Mass/Vol] Sent to reference laboratory. Separate report to follow. mg/dL [facility] HbA1c (Bld) [Mass fraction] Sent to reference laboratory. Separate report to follow. 4.0 - 6.0 % [facility] Heparin Anti-Xaon 09-28-2024 Heparin Anti-Xa <0.10 Normal [facility] Comment on above: Result Comment: This test has not been validated or calibrated for therapies other than unfractionated heparin.Interpretation of the result in relation to other therapies must be done with caution and within clinical context. Performed By: #### H EPXA, CBC, PT, PTT ####[address] [id number] Lab Director: Ramiro Mark MD LEGIONELLA ANTIGEN, URINEon 09-28-2024 L. pneumophila 1 Ag IA.rapid Ql (U) Negative NEGATIVE [facility] Lactic Acidon 09-28-2024 Lactic Acid, Whole Blood 0.9 mmol/L 0.7 - 2.1 mmol/L [facility] Lactic Acid,Whole Bl 0.9 mmol/L Normal 0.7-2.1 [facility] Comment on above: Performed By: #### L ACTIC, BMP, MG, CHELO ####[facility] [address] [place], [place] 1899208 Lab Director: Ramiro Mark MD Lactic Acid, Whole Blood 2.0 mmol/L 0.7 - 2.1 mmol/L [facility] Lactic Acid,Whole Bl 2.0 mmol/L Normal 0.7-2.1 [facility] Comment on above: Performed By: #### L ACTIC, BMP, TROPI, MG, CHELO ####[facility] [address] [place], [place] [id number] Lab Director: Ramiro Mark MD Interpretation and review of laboratory results Abnormal [facility] Lactic Acid, Whole Blood 3.2 mmol/L High 0.7 - 2.1 mmol/L [facility] Lactic Acid,Whole Bl 3.2 mmol/L High 0.7-2.1 [facility] Comment on above: Performed By: #### A GLYCO ####[facility] [address] [place] [address] Lab Director: Wil Swanson MD#### SED, PRCAL, MYCM, CDP, BMPX, TROPI, GLYHGB, IOCAL, LACTIC, CRP ####[facility] [address] [place] [address] Lab Director: Ramiro Mark MD Interpretation and review of laboratory results Abnormal [facility] Lactate (BldV) [Moles/Vol] 3.4 mmol/L High 0.5 - 2.2 mmol/L [facility] Lactate [Moles/Vol] 3.4 mmol/L High 0.5-2.2 [facility] Comment on above: Performed By: #### L ACTIC #### [facility] [address] [place] [address] [place] [address] Comparator Operator: Ramiro Santillan MD Interpretation and review of laboratory results Abnormal [facility] Lactate (BldV) [Moles/Vol] 2.3 mmol/L High 0.5 - 2.2 mmol/L [facility] Lactate [Moles/Vol] 2.3 mmol/L High 0.5-2.2 [facility] Comment on above: Performed By: #### L ACTIC #### [facility] [address] [place] [address] Comparator Operator: Ramiro Santillan MD Legionella Ag, Uron 09-28-20 24 Legionella Ag, Ur Negative Normal NEG [facility] Comment on above: Result Comment: L. p neumophila serogroup 1 antigen not detected.A negative result does not exclude infection with Leginella pnemophila serogroup 1 nor does it rule out other microbial-caused respiratory infections of disease caused by other serogroups of Legionella pneumophila. Performed By: #### L EGU ####[facility] [address] [place] [address] Lab Director: Ramiro Mark MD Lipaseon 09-28-2024 Lipase [Catalytic activity/Vol] 83 U/L High 13 - 60 U/L [facility] Lipase [Catalytic activity/Vol] 83 U/L High 13-60 [facility] Comment on above: Performed By: #### B H #### [facility] [address] [place] [address] Comparator Operator: Ramiro Santillan MD MRSA, DNA, Nasalon 4 Specimen Description .NASAL SWAB Normal [facility] Comment on above: Performed By: #### M RSANO ####[facility] [address] [place] [address] Lab Director: Ramiro Mark MD Magnesiumon 09-28-2024 Magnesium [Mass/Vol] 1.7 mg/dL 1.6 - 2 .6 mg/dL [facility] Magnesium [Mass/Vol] 1.7 mg/dL Normal 1.6-2.6 [facility] Comment on above: Performed By: #### L ACTIC, BMP, MG, CHELO ####[facility] [address] [place] [address] Lab Director: Ramiro Mark MD Magnesium [Mass/Vol] 1.8 mg/dL 1.6 - 2 .6 mg/dL [facility] Magnesium [Mass/Vol] 1.8 mg/dL Normal 1.6-2.6 [facility] Comment on above: Performed By: #### L ACTIC, BMP, TROPI, MG, CHELO ####[facility] [address] [place], [place] [id number] [facility] Director: Ramiro Mark MD Magnesium [Mass/Vol] 1.3 mg/dL Low 1.6-2.6 [facility] Comment on above: Performed By: #### B MP #### [facility] [address] [place] [address] Comparator Operator: Ramiro Santillan MD Magnesium [Mass/Vol] 2.1 mg/dL 1.6 - 2 .6 mg/dL [facility] Magnesium [Mass/Vol] 2.1 mg/dL Normal 1.6-2.6 [facility] Comment on above: Performed By: #### B MP #### [facility] [address] [place] [address] Comparator Operator: Ramiro Santillan MD Microscopic Urinalysison Epithelial cells LM.HPF (Urine sed) [#/Area] 0 TO 2 [facility] RBC LM.HPF (Urine sed) [#/Area] 2 TO 5 [facility] WBC LM.HPF (Urine sed) [#/Area] 0 TO 2 [facility] No Panel Informationon 09-28 [facility] Interpretation and review of laboratory results Abnormal [facility] Interpretation and review of laboratory results Abnormal [facility] Interpretation and review of laboratory results Abnormal [facility] Interpretation and review of laboratory results Abnormal [facility] Interpretation and review of laboratory results Abnormal [facility] POC Glucose Fingerstickon Glucose [Mass/Vol] 137 mg/dL High 75 - 110 mg/dL [facility] Interpretation and review of laboratory results Abnormal [facility] Glucose [Mass/Vol] 472 mg/dL Critically high 75 - 1 10 mg/dL [facility] Interpretation and review of laboratory results Abnormal [facility] Glucose [Mass/Vol] 115 mg/dL High 75 - 110 mg/dL [facility] Interpretation and review of laboratory results Abnormal [facility] Glucose [Mass/Vol] 126 mg/dL High 75 - 110 mg/dL [facility] Interpretation and review of laboratory results Abnormal [facility] Glucose [Mass/Vol] 178 mg/dL High 75 - 110 mg/dL [facility] Interpretation and review of laboratory results Abnormal [facility] Glucose [Mass/Vol] 255 mg/dL High 75 - 110 mg/dL [facility] Interpretation and review of laboratory results Abnormal [facility] Glucose [Mass/Vol] 289 mg/dL High 75 - 110 mg/dL [facility] Interpretation and review of laboratory results Abnormal [facility] Glucose [Mass/Vol] 305 mg/dL High 75 - 110 mg/dL [facility] Interpretation and review of laboratory results Abnormal [facility] PTon 09-28-2024 INR Coag (PPP) [Relative time] 1.1 {INR} Normal [facility] Comment on above: Result Comment: Ther apeutic Range: Moderate Anticoagulant Intensity: INR = 2.0-3.0 High Anticoagulant Intensity: INR = 2.5-3.5 Performed By: #### H EPXA, CBC, PT, PTT ####[facility] [address] [place] [address] lab Director: Ramiro Mark MD PT Coag (PPP) [Time] 14.3 s Normal 11.7-14.9 [facility] Comment on above: Performed By: #### H EPXA, CBC, PT, PTT ####[facility] [address] [place] [address] [facility] Director: Ramiro Mark MD INR Coag (PPP) [Relative time] 0.9 {INR} Normal [facility] Comment on above: Therapeutic Range: Moderate Anticoagulant Intensity: INR = 2.0-3.0 High Anticoagulant Intensity: INR = 2.5-3.5 Result Comment: Therapeutic Range: Moderate Anticoagulant Intensity: INR = 2.0-3.0 High Anticoagulant Intensity: INR = 2.5-3.5 Performed By: #### T ROPI, LIP, CDP, PT, BNP, CP #### [address] [place] [address] Comparator Operator: Ramiro Santillan MD PT Coag (PPP) [Time] 12.2 s Normal 11.7-14.1 [facility] Comment on above: Performed By: #### T ROPI, LIP, CDP, PT, BNP, CP #### [address] [place] [address] Comparator Operator: Ramiro Santillan MD Phosphoruson 09-28-2024 Phosphate [Mass/Vol] 3.2 mg/dL 2.5 - 4 .5 mg/dL [facility] Phosphate [Mass/Vol] 2.8 mg/dL 2.5 - 4 .5 mg/dL [facility] Phosphate [Mass/Vol] 4.9 mg/dL High 2.5 - 4 .5 mg/dL [facility] Phosphorus, Inorg.on 024 Phosphorus, Inorg. 3.2 mg/dL Normal 2.5-4.5 [facility] Comment on above: Performed By: #### L ACTIC, BMP, MG, CHELO ####[facility] [address] [place] [address] Lab Director: Ramiro Mark MD Phosphorus, Inorg. 2.8 mg/dL Normal 2.5-4.5 [facility] Comment on above: Performed By: #### L ACTIC, BMP, TROPI, MG, CHELO ####[facility] [address] [place], [place] [id number] Lab Director: Ramiro Mark MD Phosphorus, Inorg. 3.5 mg/dL Normal 2.5-4.5 [facility] Comment on above: Performed By: #### B MP #### [facility] [address] [place] [address] Comparator Operator: Ramiro Santillan MD Phosphorus, Inorg. 4.9 mg/dL High 2.5-4.5 [facility] Comment on above: Performed By: #### L ACTIC #### [facility] [address] [place] [address] Comparator Operator: Ramiro Santillan MD Portable XR Chest AP single viewon 09-28-2024 No acute cardiopulmonary process. Endotracheal tube with the tip in the midtrachea. [facility] RIS CONSOLIDATED EXAMINATION: ONE XRAY VIEW OF [...] midtrachea. The gastric tube has been removed. [facility] RIS CONSOLIDATED Lito Marie MD - 09/28/2024 [...] tube with the tip in the midtrachea. [facility] Radiology Study observation (narrative) [facility] Procalcitoninon 09-28-2024 Procalcitonin [Mass/Vol] 0.19 ng/mL High 0.00 - 0.09 ng/mL [facility] Procalcitonin 0.19 ng/mL High 0.00-0.09 [facility] Comment on above: Result Comment: Susp ected [...] entered into the Change in Procalcitonin Calculator ([email or web address]) to determine the patient's Mortality Risk PrognosisIn healthy neonates, plasma Procalcitonin (PCT) concentrations increase gradually after , reaching peak values at about 24 hours of age then decrease to normal values below 0.5 ng/mL by 48-72 hours of age. Performed By: #### A GLYCO ####[facility] [address] [place] [address] Lab Director: Wil Swanson MD#### SED, PRCAL, MYCM, CDP, BMPX, TROPI, GLYHGB, IOCAL, LACTIC, CRP ####[facility] [address] [place] [address] Lab Director: Ramiro Mark MD Protime-INRon 09-28-2024 INR Coag (PPP) [Relative time] 1.1 {INR} [facility] PT Coag (PPP) [Time] 14.3 s [facility] Resp Viral Panelon 4 Adenovirus Not detected Normal [facility] Comment on above: Performed By: #### R BIRDCAGE ASSEMBLER ####[facility] [address] [place], [place] [phone] Director: MD Lakesha Moreno.parapertussis Not detected Normal [facility] Comment on above: Performed By: #### R BIRDCAGE ASSEMBLER ####[facility] [address] [place] [address] Lab Director: Ramiro Mark MD Bordetella pertussis Not detected Normal [facility] Comment on above: Performed By: #### R BIRDCAGE ASSEMBLER ####[address] [phone] Director: Ramiro Mark MD Chlamyd.pneumoniae Not detected Normal [facility] Comment on above: Performed By: #### R BIRDCAGE ASSEMBLER ####[address] [address] Lab Director: Ramiro Mark MD Coronavirus 229E Not detected Normal [facility] Comment on above: Performed By: #### R BIRDCAGE ASSEMBLER ####[facility] [address] [place] [address] Lab Director: Ramiro Mark MD Coronavirus HKU1 Not detected Normal [facility] Comment on above: Performed By: #### R BIRDCAGE ASSEMBLER ####[facility] [address] [place], [place] [phone] Director: Ramiro Mark MD Coronavirus NL63 Not detected Normal [facility] Comment on above: Performed By: #### R BIRDCAGE ASSEMBLER ####[facility] [address] [place] [address] Lab Director: Ramiro Mark MD Coronavirus OC43 Not detected Normal [facility] Comment on above: Performed By: #### R BIRDCAGE ASSEMBLER ####[address] [place], [place] [phone] Director: Ramiro Mark MD Human Metapneumo Not detected Normal [facility] Comment on above: Performed By: #### R BIRDCAGE ASSEMBLER ####[address] [phone] Director: Ramiro Mark MD Influenza A Not detected Normal [facility] Comment on above: Performed By: #### R BIRDCAGE ASSEMBLER ####[address] [phone] Director: Ramiro Mark MD Influenza B Not detected [facility] Comment on above: Performed By: #### R BIRDCAGE ASSEMBLER ####[address] [phone] Director: Ramiro Mark MD Mycoplas.pneumoniae Not detected Normal [facility] Comment on above: Result Comment: Perf ormed by multiplexed nucleic acid assay. Performed By: #### R BIRDCAGE ASSEMBLER ####[address] [phone] Director: Ramiro Mark MD Parainfluenza 1 Not detected Normal [facility] Comment on above: Performed By: #### R BIRDCAGE ASSEMBLER ####[address] [phone] Director: Ramiro Mark MD Parainfluenza 2 Not detected [facility] Comment on above: Performed By: #### R BIRDCAGE ASSEMBLER ####[address] [phone] Director: Ramiro Mark MD Parainfluenza 3 Not detected Normal [facility] Comment on above: Performed By: #### R BIRDCAGE ASSEMBLER ####[address] [address] Lab Director: Ramiro Mark MD Parainfluenza 4 Not detected Normal [facility] Comment on above: Performed By: #### R BIRDCAGE ASSEMBLER ####[address] [address] Lab Director: Ramiro Mark MD Resp Syncytial Virus Not detected Normal [facility] Comment on above: Performed By: #### R BIRDCAGE ASSEMBLER ####[address] [address] Lab Director: Ramiro Mark MD Rhino/Enterovirus Not detected Normal [facility] Comment on above: Performed By: #### R BIRDCAGE ASSEMBLER ####[address] [address] Lab Director: Ramiro Mark MD SARS-CoV-2 (COVID-19) RNA MEETA+probe Ql (Unsp spec) Not detected Normal [facility] Comment on above: Performed By: #### R BIRDCAGE ASSEMBLER ####[address] [address] Lab Director: Ramiro Mark MD Source: .NASOPHARYNGEAL SWAB Normal [facility] Comment on above: Performed By: #### R BIRDCAGE ASSEMBLER ####[address] [address] Lab Director: Ramiro Mark MD Respiratory Panel, Molecular , with COVID-19 (Restricted: peds pts or suitable admitted adults)on 09-28-2024 Adenovirus DNA MEETA+non-probe Ql (Nph) Not detected Not Detected [facility] B. parapertussis [id number] DNA MEETA+non-probe Ql (Nph) Not detected Not Detected [facility] B. pertussis DNA MEETA+probe Ql (Unsp spec) Not detected Not Detected [facility] C. pneumoniae DNA MEETA+non-probe Ql (Nph) Not detected Not Detected [facility] FLUAV RNA MEETA+non-probe Ql (Nph) Not detected Not Detected [facility] FLUBV RNA MEETA+non-probe Ql (Nph) Not detected Not Detected [facility] HCoV 229E RNA MEETA+non-probe Ql (Nph) Not detected Not Detected [facility] HCoV HKU1 RNA MEETA+non-probe Ql (Nph) Not detected Not Detected [facility] HCoV NL63 RNA MEETA+non-probe Ql (Nph) Not detected Not Detected [facility] HCoV OC43 RNA MEETA+non-probe Ql (Nph) Not detected Not Detected [facility] hMPV RNA MEETA+non-probe Ql (Nph) Not detected Not Detected [facility] M. pneumoniae DNA MEETA+non-probe Ql (Nph) Not detected Not Detected [facility] Parainfluenza virus 1 RNA MEETA+non-probe Ql (Nph) Not detected Not Detected [facility] Parainfluenza virus 2 RNA MEETA+non-probe Ql (Nph) Not detected Not Detected [facility] Parainfluenza virus 3 RNA MEETA+non-probe Ql (Nph) Not detected Not Detected [facility] Parainfluenza virus 4 RNA MEETA+non-probe Ql (Nph) Not detected Not Detected [facility] Rhinovirus+Enterovirus RNA MEETA+non-probe Ql (Nph) Not detected Not Detected [facility] RSV RNA MEETA+non-probe Ql (Nph) Not detected Not Detected [facility] SARS-CoV-2 (COVID-19) RNA MEETA+non-probe Ql (Nph) Not detected Not Detected [facility] Specimen Description .NASOPHARYNGEAL SWAB [facility] Sedimentation Rateon 09-28-2 024 ESR Photometric method (Bld) [Velocity] 24 High [facility] Interpretation and review of laboratory results Abnormal [facility] Sedimentation Rate 24 mm/Hr High 0-20 [facility] Comment on above: Performed By: #### A GLYCO ####[facility] [address] [place] [address] Lab Director: Wil Swanson MD#### SED, PRCAL, MYCM, CDP, BMPX, TROPI, GLYHGB, IOCAL, LACTIC, CRP ####[facility] [address] [place] [address] Lab Director: Ramiro Mark MD Strep Pneumoniae Antigenon 1 11-29-2023 S. pneumoniae Ag Ql (Unsp spec) Negative [facility] Specimen source Nom (Unsp spec) .URINE [facility] Strep pneum Ag,CSF/Uron - Strep pneum Ag Negative Normal [facility] Comment on above: Result Comment: Stre p pneumoniae antigen not detected Performed By: #### S PNAG ####[address] [id number] lab Director: Ramiro Mark MD Strep pneu Ag Source .URINE Normal [facility] Comment on above: Performed By: #### S PNAG ####[address] [id number] lab Director: Ramiro Mark MD TYPE AND SCREENon 09-28-2024 ABO and Rh group Nom (Bld) Blood group O Rh(D) positive [facility] Arm Band Number [id number] [facility] Blood Bank Sample Expiration 10/01/2024,2359 [facility] Blood group antibodies identified Nom Negative [facility] Troponinon 09-28-2024 Troponin I.cardiac High sensitivity method [Mass/Vol] 93 ng/L Critically high 0 - 22 ng/L [facility] Troponin, High Sens 93 ng/L Critically high 0-22 [facility] Comment on above: Result Comment: High Sensitivity Troponin values cannot be compared with other Troponin methodologies.Previous Alert Value Reported Performed By: #### L ACTIC, BMP, TROPI, MG, CHELO ####[facility] [address] [place], [place] [id number] Lab Director: Ramiro Mark MD Interpretation and review of laboratory results Abnormal [facility] Troponin I.cardiac High sensitivity method [Mass/Vol] 98 ng/L Critically high 0 - 22 ng/L [facility] Troponin, High Sens 98 ng/L Critically high 0-22 [facility] Comment on above: Result Comment: High Sensitivity Troponin values cannot be compared with other Troponin methodologies.Previous Alert Value Reported Performed By: #### T ROPI ####[facility] [address] [place], [place] [id number] lab Director: Ramiro Mark MD Troponin I.cardiac High sensitivity method [Mass/Vol] 97 ng/L Critically high 0 - 22 ng/L [facility] Troponin, High Sens 97 ng/L Critically high 0-22 [facility] Comment on above: Result Comment: High Sensitivity Troponin values cannot be compared with other Troponin methodologies. Performed By: #### A GLYCO ####[facility] [address] [place] [address] lab Director: Wil Swanson MD#### SED, PRCAL, MYCM, CDP, BMPX, TROPI, GLYHGB, IOCAL, LACTIC, CRP ####[facility] [address] [place], [place] [id number] Lab Director: Ramiro Mark MD Interpretation and review of laboratory results Abnormal [facility] Troponin I.cardiac High sensitivity method [Mass/Vol] 65 ng/L Critically high 0 - 22 ng/L [facility] Comment on above: Specimen hemolysis h as exceeded the interference as defined by Jaime. Value may be falsely decreased. Suggest recollection if clinically indicated. High Sensitivity Troponin values cannot be compared with other Troponin methodologies. [facility] Troponin, High Sens 65 ng/L Critically high 0-22 [facility] Comment on above: Result Comment: Spec imen hemolysis has exceeded the interference as defined by Jaime. Value may be falsely decreased. Suggest recollection if clinically indicated. High Sensitivity Troponin values cannot be compared with other Troponin methodologies. Performed By: #### B MP #### [address] [place] [address] Comparator Operator: Ramiro Santillan MD Interpretation and review of laboratory results Abnormal [facility] Troponin I.cardiac High sensitivity method [Mass/Vol] 53 ng/L Critically high 0 - 22 ng/L [facility] Comment on above: High Sensitivity Tro ponin values cannot be compared with other Troponin methodologies. [facility] Troponin, High Sens 53 ng/L Critically high 0-22 [facility] Comment on above: Result Comment: High Sensitivity Troponin values cannot be compared with other Troponin methodologies. Performed By: #### B MP #### [address] [place], [place] [phone] Comparator Operator: Ramiro Santillan MD Troponin I.cardiac High sensitivity method [Mass/Vol] 64 ng/L Critically high 0 - 22 ng/L [facility] Comment on above: High Sensitivity Tro ponin values cannot be compared with other Troponin methodologies. Troponin, High Sens 64 ng/L Critically high 0-22 [facility] Comment on above: Result Comment: High Sensitivity Troponin values cannot be compared with other Troponin methodologies. Performed By: #### B H #### [address] [place] [address] Comparator Operator: Ramiro Santillan MD Type + Screenon 09-28-2024 Type + Screen Sample Expiration 10/01/2024,6890 Arm Band Number [id number] ABO/Rh(D) O POSITIVE Antibody Screen NEGATIVE Normal [facility] Comment on above: Performed By: #### T YS #### [facility] [address] [place] [address] [place] [address] Comparator Operator: Ramiro Santillan MD UA w/Reflex Cultureon 2023 Bilirubin, SemiQt,Ur Negative Normal NEG [facility] Comment on above: Performed By: #### U MICAO, UAX #### [facility] [address] [place], [place] [phone] Comparator Operator: Ramiro Santillan MD Blood, Urine 2+ Abnormal NEG [facility] Comment on above: Performed By: #### U MICAO, UAX #### [facility] [address] [place], [place] [phone] Comparator Operator: Ramiro Santillan MD Clarity (U) Clear Normal CLEAR [facility] Comment on above: Performed By: #### U MICAO, UAX #### [facility] [address] [place], [place] [id number] Comparator Operator: Ramiro Santillan MD Color (U) Yellow Normal YEL [facility] Comment on above: Performed By: #### U MICAO, UAX #### [facility] [address] [place] [address] Dr[place], [place] [id number] Comparator Operator: Ramiro Santillan MD Glucose Ql (U) 3+ mg/dL Abnormal NEG [facility] in Hospital Comment on above: Performed By: #### U MICAO, UAX #### [address] [place], [place] [phone] Comparator Operator: Ramiro Santillan MD Ketones Ql (U) 1+ mg/dL Abnormal NEG [facility] in [facility] Comment on above: Performed By: #### U MICAO, UAX #### [facility] [address] [place] [address] Dr[place], [place] [id number] Comparator Operator: Ramiro Santillan MD Leukocyte esterase Test strip Ql (U) Negative Normal NEG [facility] Comment on above: Performed By: #### U MICAO, UAX #### [address] [place] [address] Comparator Operator: Ramiro Santillan MD Nitrite,Ur Negative Normal NEG [facility] Comment on above: Performed By: #### U MICAO, UAX #### [facility] [address] [place], [place] [id number] Comparator Operator: Ramiro Santillan MD PH,Ur 6.5 Normal 5.0-9.0 [facility] Comment on above: Performed By: #### U MICAO, UAX #### [facility] [address] [place], [place] [phone] Comparator Operator: Ramiro Santillan MD Protein Ql (U) 4+ mg/dL Abnormal NEG [facility] Comment on above: Performed By: #### U MICAO, UAX #### [facility] [address] [place], [place] [id number] Comparator Operator: Ramiro Santillan MD Spec. [place],Ur 1.015 Normal 1.010-1.020 [facility] Comment on above: Performed By: #### U MICAO, UAX #### [facility] [address] [place] [address] Dr[place], [place] [id number] Comparator Operator: Ramiro Santillan MD Urobilinogen,Ur Normal Normal 0.0-1.0 [facility] Comment on above: Performed By: #### U MICAO, UAX #### [address] [place] [address] Comparator Operator: Ramiro Santillan MD Kidneyon 09-28-2024 Radiology Study observation (narrative) [facility] Urinalysis with Reflex to Cu ltureon 09-28-2024 Bilirubin Ql (U) Negative NEGATIVE [facility] Seco urs [facility] Clarity (U) Clear Clear [facility] Color (U) Yellow Yellow [facility] Glucose Test strip (U) [Mass/Vol] 3+ Abnormal NEGATIVE mg/dL [facility] Hemoglobin Auto test strip Ql (U) 2+ Abnormal NEGATIVE [facility] Interpretation and review of laboratory results Abnormal [facility] Ketones (U) [Mass/Vol] 1+ Abnormal NEGAT RAJAN mg/dL [facility] Leukocyte esterase Test strip Ql (U) Negative NEGATIVE [facility] Nitrite Ql (U) Negative NEGATIVE [facility] pH (U) 6.5 [pH] 5.0 - 9.0 [facility] Protein (U) [Mass/Vol] 4+ Abnormal NEGAT RAJAN mg/dL [facility] Specific gravity (U) [Rel density] 1.015 1.010 - 1.020 [facility] Urobilinogen Qn (U) Normal 0.0 - 1. 0 EU/dL [facility] Urinalysis,Microon 4 Epithelial cells LM Ql (Urine sed) 0 TO 2 Normal 0-5 [facility] Comment on above: Performed By: #### U ABDIO, UAX #### [facility] [address] [place] [address] Comparator Operator: Ramiro Santillan MD Urine RBC's 2 TO 5 Normal 0-2 [facility] Comment on above: Performed By: #### U ABDIO, UAX #### [facility] [address] [place] [address] Comparator Operator: Ramiro Santillan MD Urine WBC's 0 TO 2 Normal 0-5 [facility] Comment on above: Performed By: #### U ABDIO, UAX #### [facility] [address] [place] [address] Comparator Operator: Ramiro Santillan MD Urine Drug Screenon 09-28-20 24 Amphetamines Ql (U) Negative NEGATIVE [facility] Comment on above: Cutoff: 1000 ng/mL Barbiturates Screen Ql (U) Negative NEGATIVE [facility] Comment on above: Cutoff: 200 ng/ml Benzodiazepines Ql (U) Negative NEGATIVE [facility] Comment on above: Cutoff: 200 ng/ml Buprenorphine Ql (U) Negative NEGATIVE [facility] Comment on above: Cutoff: 5 ng/ml Cannabinoids Screen Ql (U) Negative NEGATIVE [facility] Comment on above: Cutoff: 50 ng/ml Cocaine Ql (U) Negative NEGATIVE [facility] Comment on above: Cutoff: 300 ng/ml fentaNYL Ql (U) Negative NEGATIVE [facility] rs [facility] Comment on above: Cutoff: 5 ng/ml Methadone Ql (U) Negative NEGATIVE [facility] Comment on above: Cutoff: 300 ng/ml Opiates Screen Ql (U) Negative NEGATIVE [facility] Comment on above: Cutoff: 300 ng/ml Note: The Opiate screen is not intended to detect Oxycodone. oxyCODONE Ql (U) Negative NEGATIVE [facility] urs [facility] Comment on above: Cutoff: 100 ng/ml Phencyclidine Ql (U) Negative NEGATIVE [facility] Comment on above: Cutoff: 25 ng/ml Test Information This method is a screening test to detect only these drug classes as part of a medical workup. Confirmatory testing by another method should be ordered if clinically indicated. [facility] Venous Blood Gaseson 024 Jody Test NOT APPLICABLE [facility] Comment on above: Performed By: #### B MP #### [facility] [address] [place] [address] Comparator Operator: Ramiro Santillan MD Body Temp. 37.0 [facility] Comment on above: Performed By: #### B MP #### [facility] [address] [place] [address] Comparator Operator: Ramiro Santillan MD FIO2 35 [facility] Comment on above: Performed By: #### B MP #### [facility] [address] [place] [address] Comparator Operator: Ramiro Santillan MD HCO3 (Bld) [Moles/Vol] 21.0 mmol/L Low 24.0-30.0 [facility] Comment on above: Performed By: #### B MP #### [facility] [address] [place] [address] Comparator Operator: Ramiro Santillan MD Negative Base Excess 4.3 mmol/L High 0.0-2.0 [facility] Comment on above: Performed By: #### B MP #### [facility] [address] [place], [place] [id number] Comparator Operator: Ramiro Santillan MD O2 Device/Flow/% VENTILATOR Normal [facility] Comment on above: Performed By: #### B MP #### [facility] [address] [place], [place] [id number] Comparator Operator: Ramiro Santillan MD Oxygen saturation in Blood 99.0 % High 60.0-85.0 [facility] Comment on above: Performed By: #### B MP #### [facility] [address] [place] [address] Comparator Operator: Ramiro Santillan MD pCO2 39.8 mm Hg Normal 39-55 [facility] Comment on above: Performed By: #### B MP #### [facility] [address] [place], [place] 033[address]83 Comparator Operator: Ramiro Santillan MD Pco2 Adj'd for Temp. 39.8 mmHg Normal 39.0-55.0 [facility] Comment on above: Performed By: #### B MP #### [facility] [address] [place], [place] [id number] Comparator Operator: Ramiro Santillan MD pH (Bld) 7.341 [pH] Normal 7.32-7.42 [facility] Comment on above: Performed By: #### B MP #### [facility] [address] [place], [place] 7534183 Comparator Operator: Ramiro Santillan MD pH Adjst'd for Temp. 7.341 Normal 7.320-7.420 [facility] Comment on above: Performed By: #### B MP #### [facility] [address] [place] [address] Comparator Operator: Ramiro Santillan MD pO2 164.8 mm Hg High 30.0-50.0 [facility] Comment on above: Performed By: #### B MP #### [facility] [address] [place] [address] Comparator Operator: Ramiro Santillan MD pO2 Adj'd for Temp. 164.8 mmHg High 30.0-50.0 [facility] Comment on above: Performed By: #### B MP #### [facility] [address] [place] [address] Comparator Operator: Ramiro Santillan MD XR ABDOMEN FOR NG/OG/NE TUBE PLACEMENTon 09-28-2024 XR ABDOMEN FOR NG/OG/NE TUBE PLACEMENT Normal [facility] MHPN RIS CONSOLIDATED MHPN RIS CONSOLIDATED [facility] Radiology Study observation (narrative) [facility] XR ABDOMEN FOR NG/OG/NE TUBE PLACEMENTOrdered By: Nawaf Perez on 09-28-2024 [facility] Work Phone: XR CHEST PORTABLEon 09-28-20 XR [...] Lito Marie MD 09/28/24 Final result Normal [facility] Physician Referralon Physician Referral [id number]#1.00T IFF Normal [facility] Physician Referralon Physician Referral [id number] [phone] [id number]#1.00T IFF Normal [facility] Q Fever Serology,IFAon 01-27 Q-Fever,Phase I IgG Negative Normal Negative [facility] Comment on above: [...] be performed. Performed By: #### A QFEV ####[address] [address] [facility] Director: Wil Swanson MD Q-Fever,Phase II IgG Negative Normal Negative [facility] Comment on above: Result Comment: (NOT [...] negative.No further testing will be performed.Performed By: [employer] [place] [address]Bypbipalhi Director: Rogelio Miranda MD, PhDCLIA Number: [id number] Performed By: #### A QFEV ####[address] [address] Lab Director: Wil Swanson MD Cult,Bloodon 01-24-2024 Cult,Blood Specimen Description .BLOOD Special Requests L HAND 5 ML Culture NO GROWTH 5 DAYS Report Status FINAL 01/24/2024 Normal [facility] Comment on above: Performed By: #### B C ####[address] [id number] lab Director: Ramiro Mark MD Cult,Blood Specimen Description .BLOOD Special Requests R HAND 5 ML Culture NO GROWTH 5 DAYS Report Status FINAL 01/24/2024 Normal [facility] Comment on above: Performed By: #### B C ####[place] [address] lab Director: Ramiro Mark MD Brucella Ab, IgG/IgMon 01-22 Brucella Ab, IgG/M <1:20 Normal <1:20 [facility] Comment on above: [...] with a history of potential exposures.Performed By: [employer] [place] [id number] Director: Rogelio Miranda MD, PhDCLIA Number: [id number] Performed By: #### A BRUAB ####[facility] [place] [address] Lab Director: Wil Swanson MD West Nile Virus, CSFon 01-22 WNV Ab IgG, CSF 0.05 IV Normal <=1.29 [facility] Comment on above: [...] other members of the Flaviviridae family,such as [place] encephalitis virus, show extensivecross-reactivity with West Nile virus, serologic testing specificfor these species should be considered.The detection of antibodies to West Nile virus in cerebrospinalfluid may indicate central nervous system infection. However,consideration must be given to possible contamination by blood ortransfer of serum antibodies across the blood-brain barrier.This test was developed and its performance characteristicsdetermined by [employer]. It has not been cleared orapproved by the [place] Food and Drug Administration. This test wasperformed in a CLIA certified laboratory and is intended forclinical purposes. Performed By: #### C FCNT, MEVP, CFVD, CGLU, CTP ####[facility] [place] [address] Lab Director: Ramiro Mark MD#### CHESTER MEADE ####[facility] [address] [place] [address] Lab Director: Wil Swanson MD WNV Ab IgM, CSF 0.00 IV Normal <=0.89 [facility] Comment on above: [...] other members of the Flaviviridae family,such as [place] encephalitis virus, show extensivecross-reactivity with West Nile virus, serologic testing specificfor these species should be considered.The detection of antibodies to West Nile virus in cerebrospinalfluid may indicate central nervous system infection. However,consideration must be given to possible contamination by blood ortransfer of serum antibodies across the blood-brain barrier.This test was developed and its performance characteristicsdetermined by [employer]. It has not been cleared orapproved by the [place] Food and Drug Administration. This test wasperformed in a CLIA certified laboratory and is intended forclinical purposes.Performed By: [employer] [place], [place] [address]Srihdxpsyw Director: Rogelio Miranda MD, PhDCLIA Number: [id number] Performed By: #### C FCNT, MEVP, CFVD, CGLU, CTP ####[address] [place] [address] Lab Director: Ramiro Mark MD#### DESHAUN, CHESTER ####[employer] [place], [place] [id number] lab Director: Wil Swanson MD Basic Metabolic Panelon 04-0 Anion gap [Moles/Vol] 9 mmol/L 9 - 16 mmol/L [facility] Calcium [Mass/Vol] 8.3 mg/dL Low 8.6 - 10. 4 mg/dL [facility] Chloride [Moles/Vol] 105 mmol/L 98 - 10 7 mmol/L [facility] CO2 [Moles/Vol] 22 mmol/L 20 - 31 mmol/L [facility] Creatinine [Mass/Vol] 1.3 mg/dL High 0.70 - 1.20 mg/dL [facility] GFR/1.73 sq M.predicted MDRD (S/P/Bld) [Vol rate/Area] 69 mL/min/{1.73_m2} - PINF [facility] Glucose [Mass/Vol] 225 mg/dL High 74 - 99 mg/dL [facility] Interpretation and review of laboratory results Abnormal [facility] Potassium [Moles/Vol] 3.8 mmol/L 3.7 - 5.3 mmol/L [facility] Sodium [Moles/Vol] 136 mmol/L 136 - 145 mmol/L [facility] Urea nitrogen [Mass/Vol] 25 mg/dL High 6 - 20 mg/dL [facility] Basic Metabolic Profon 01-21 Anion gap [Moles/Vol] 9 mmol/L Normal 9-16 [facility] Comment on above: Performed By: #### M LEENA Arana, CDP, CHELO ####[facility] HospitalPacer ElectronicsEhlrdrulzxnu[address] [place] [id number] Lab Director: Ramiro Mark MD Calcium [Mass/Vol] 8.3 mg/dL Low 8.6-10.4 [facility] Comment on above: Performed By: #### M Sumit, LEENA, CDP, CHELO ####[employer] [address] [place] [id number] lab Director: Ramiro Mark MD Chloride [Moles/Vol] 105 mmol/L Normal 98-107 [facility] Comment on above: Performed By: #### M Sumit, BMP, CDP, CHELO ####[address] [place] [address] Lab Director: Ramiro Mark MD CO2 [Moles/Vol] 22 mmol/L Normal 20-31 [facility] Comment on above: Performed By: #### M Sumit, LEENA, CDP, CHELO ####[address] [phone] Director: Ramiro Mrak MD Creatinine [Mass/Vol] 1.3 mg/dL High 0.70-1.20 [facility] Comment on above: Performed By: #### M Sumit, LEENA, CDP, CHELO ####[address] [phone] Director: Ramiro Mark MD GFR/1.73 sq M.predicted among non-blacks MDRD (S/P/Bld) [Vol rate/Area] 69 mL/min/{1.73_m2} Normal >60 [facility] Comment on above: Result Comment: Thes e [...] tubular secretion. Performed By: #### LEENA Purcell, CHIQUI, CHELO ####[facility] [address] [place] [address] [phone] Director: Ramiro Mark MD Glucose [Mass/Vol] 225 mg/dL High 74-99 [facility] Comment on above: Performed By: #### M LEENA Arana, CDP, CHELO ####[facility] [address] [place] [address] [phone] Director: Ramiro Mark MD Potassium [Moles/Vol] 3.8 mmol/L Normal 3.7-5.3 [facility] Comment on above: Performed By: #### M G, BMP, CDP, CHELO ####[facility] [address] [place] [address] Lab Director: Ramiro Mark MD Sodium [Moles/Vol] 136 mmol/L Normal 136-145 [facility] Comment on above: Performed By: #### M G, BMP, CDP, CHELO ####[facility] [address] [place], [place] [id number] Lab Director: Ramiro Mark MD Urea nitrogen [Mass/Vol] 25 mg/dL High 6-20 [facility] Comment on above: Performed By: #### M G, BMP, CDP, CHELO ####[facility] [address] [place], [place] [id number] lab Director: Ramiro Mark MD CBC with Auto Differentialon 01-22-2024 Basophils (Bld) [#/Vol] 0.05 10*3/uL [facility] Basophils/100 WBC (Bld) 1 % 0 - 2 % [facility] Eosinophils (Bld) [#/Vol] 0.18 10*3/uL [facility] Eosinophils/100 WBC (Bld) 2 % 1 - 4 % [facility] Erythrocyte distribution width (RBC) [Ratio] 13.9 % 11.8 - 14.4 % [facility] Hematocrit (Bld) [Volume fraction] 31.6 % Low 40.7 - 50.3 % [facility] Hemoglobin (Bld) [Mass/Vol] 10.2 g/dL Low 13.0 - 17.0 g/dL [facility] Immature granulocytes (Bld) [#/Vol] [facility] Immature granulocytes/100 WBC (Bld) 0 % 0 [facility] Interpretation and review of laboratory results Abnormal [facility] Lymphocytes/100 WBC (Bld) 21 % Low 24 - 43 % [facility] Lymphocytes/100 WBC (Bld) 1.58 % [facility] MCH (RBC) [Entitic mass] 29.3 pg 25.2 - 33.5 pg [facility] MCHC (RBC) [Mass/Vol] 32.3 g/dL 28.4 - 34.8 g/dL [facility] MCV (RBC) [Entitic vol] 90.8 fL 82.6 - 102.9 fL [facility] Monocytes/100 WBC (Bld) 7 % 3 - 12 % [facility] Monocytes/100 WBC (Bld) 0.52 % [facility] Neutrophils/100 WBC (Bld) 69 % High 36 - 65 % [facility] Nucleated RBC/100 WBC (Bld) [Ratio] 0.0 % 0.0 per 100 WBC [facility] Platelet mean volume (Bld) [Entitic vol] 10.8 fL 8.1 - 13.5 fL [facility] Platelets (Bld) [#/Vol] 164 10*3/uL [facility] RBC (Bld) [#/Vol] 3.48 10*6/uL Low 4.21 - 5.7 7 m/uL [facility] Segmented neutrophils/100 WBC (Bld) 5.02 % [facility] WBC other (Bld) [#/Vol] 7.4 [facility] CBC with Diffon 01-22-2024 Abs. Basophil 0.05 k/uL Normal 0.00-0.20 [facility] Comment on above: Performed By: #### Andres Arana, LEENA, CDP, CHELO ####[employer] [address] [place] [address] Lab Director: Ramiro Mark MD Abs.Imm.Granulocyte <0.03 Normal 0.00-0.30 [facility] Comment on above: Performed By: #### M Sumit, LEENA, CDP, CHELO ####[employer] [address] [place] [phone] lab Director: Ramiro Mark MD Abs.Neutrophil (Seg) 5.02 k/uL Normal 1.50-8.10 [facility] Comment on above: Performed By: #### Andres Arana, BMP, CDP, CHELO ####[facility] [address] [place] [address] Lab Director: Ramiro Mark MD Basophils/100 WBC (Bld) 1 % Normal 0-2 [facility] Comment on above: Performed By: #### M G, BMP, CDP, CHELO ####[facility] [address] [place] [address] Lab Director: Ramiro Mark MD Eosinophils (Bld) [#/Vol] 0.18 10*3/uL Normal 0.00-0.44 [facility] Comment on above: Performed By: #### M G, BMP, CDP, CHELO ####[facility] [address] [place] [address] Lab Director: Ramiro Mark MD Eosinophils/100 WBC (Bld) 2 % Normal 1-4 [facility] Comment on above: Performed By: #### M G, BMP, CDP, CHELO ####[facility] [address] [place], [place] [address])[phone] Director: Ramiro Mark MD Erythrocyte distribution width (RBC) [Ratio] 13.9 % Normal 11.8-14.4 [facility] Comment on above: Performed By: #### M G, BMP, CDP, CHELO ####[facility] [address] [place] [address] Lab Director: Ramiro Mark MD Hematocrit (Bld) [Volume fraction] 31.6 % Low 40.7-50.3 [facility] Comment on above: Performed By: #### M G, BMP, CDP, CHELO ####[facility] [address] [place], [place] [address])[phone] Director: Ramiro Mark MD Hemoglobin (Bld) [Mass/Vol] 10.2 g/dL Low 13.0-17.0 [facility] Comment on above: Performed By: #### M G, BMP, CDP, CHELO ####[facility] [address] [place], [place] [phone] Director: Ramiro Mark MD Immature granulocytes/100 WBC (Bld) 0 % Normal 0 [facility] Comment on above: Performed By: #### M G, BMP, CDP, CHELO ####[facility] [address] [place], [place] [phone])[phone] Director: Ramiro Mark MD Lymphocytes (Bld) [#/Vol] 1.58 10*3/uL Normal 1.10-3.70 [facility] Comment on above: Performed By: #### M G, BMP, CDP, CHELO ####[facility] [address] [place] [address] [phone])[phone] Director: Ramiro Mark MD Lymphocytes/100 WBC (Bld) 21 % Low 24-43 [facility] Comment on above: Performed By: #### M G, BMP, CDP, CHELO ####[facility] [address] [place] [address] [phone] Director: Ramiro Mark MD MCH (RBC) [Entitic mass] 29.3 pg Normal 25.2-33.5 [facility] Comment on above: Performed By: #### M G, BMP, CDP, CHELO ####[facility] [address] [place] [address] [phone] Director: Ramiro Mark MD MCHC (RBC) [Mass/Vol] 32.3 g/dL Normal 28.4-34.8 [facility] Comment on above: Performed By: #### M G, BMP, CDP, CHELO ####[facility] [address] [place], [place] [phone] Director: Ramiro Mark MD MCV (RBC) [Entitic vol] 90.8 fL Normal 82.6-102.9 [facility] Comment on above: Performed By: #### M G, BMP, CDP, CHELO ####[facility] [address]lq[address]ws[address]80[address] [place], [place] [phone] Director: Ramiro Mark MD Monocytes (Bld) [#/Vol] 0.52 10*3/uL Normal 0.10-1.20 [facility] Comment on above: Performed By: #### M G, BMP, CDP, CHELO ####[facility] [address] [place], [place] [phone] Director: Ramiro Mark MD Monocytes/100 WBC (Bld) 7 % Normal 3-12 [facility] Comment on above: Performed By: #### M G, BMP, CDP, CHELO ####[facility] [address] [place] [address] Lab Director: Ramiro Mark MD Neutrophil (Seg) 69 % High 36-65 [facility] Comment on above: Performed By: #### M G, BMP, CDP, CHELO ####[facility] [address] [place] [address] [phone] Director: Ramiro Mark MD NRBC Automated 0.0 per 100 WBC Normal 0.0 [facility] Comment on above: Performed By: #### M G, BMP, CDP, CHELO ####[facility] [address] [place], [place] [phone] Director: Ramiro Mark MD Platelet mean volume (Bld) [Entitic vol] 10.8 fL Normal 8.1-13.5 [facility] Comment on above: Performed By: #### M G, BMP, CDP, CHELO ####[facility] [address] [place], [place] [phone] Director: Ramiro Mark MD Platelets (Bld) [#/Vol] 164 10*3/uL Normal 138-453 [facility] Comment on above: Performed By: #### M G, BMP, CDP, CHELO ####[facility] [address] [place] [address] Lab Director: Ramiro Mark MD RBC (Bld) [#/Vol] 3.48 10*6/uL Low 4.21-5.77 [facility] Comment on above: Performed By: #### M G, BMP, CDP, CHELO ####[facility] Cxpl[address]cznqmbx3440 [place], [place] [phone] Director: Ramiro Mark MD WBC (Bld) [#/Vol] 7.4 10*3/uL Normal 3.5-11.3 [facility] Comment on above: Performed By: #### M Sumit, LEENA, CDP, CHELO ####[facility] [address] [place], [place] [phone] Director: Ramiro Mark MD Cult,CSFon 01-22-2024 Cult,CSF Normal [facility] Comment on above: Performed By: #### C FC ####[facility] [address] [place], [place] [phone] Director: Ramiro Mark MD Culture, CSFon 01-22-2024 Microorganism identified Cx Nom (Unsp spec) NO GROWTH 3 DAYS [facility] Microorganism or agent identified Nom (Unsp spec) RARE NEUTROPHILS [facility] Microorganism or agent identified Nom (Unsp spec) NO ORGANISMS SEEN [facility] Microorganism or agent identified Nom (Unsp spec) Gram stain made from cytocentrifuged specimen. Organisms and cells will be concentrated. [facility] Specimen Description .CSF [facility] Glucose,Whole Bloodon 2023 Glucose [Mass/Vol] 164 mg/dL High 75-110 [facility] Glucose [Mass/Vol] 293 mg/dL High 75-110 [facility] Glucose [Mass/Vol] 172 mg/dL High 75-110 [facility] HSV DNA, PCRon 01-22-2024 HSV 1 subtype by PCR Not detected Normal [facility] Comment on above: Performed By: #### A HSVPC ####[employer] Electronics[address] [place] [address] lab Director: KAYLYNN Moreno [place] [phone] [facility] Director: Wil Swanson MD HSV 2 subtype by PCR Not detected Normal [facility] Comment on above: Result Comment: (NOT E)INTERPRETIVE INFORMATION: HSV-1 and HSV- 2 Subtype by PCRA negative result does not rule out the presence of PCR inhibitorsin the patient specimen or test-specific nucleic acid inconcentrations below the level of detection by this test.This test was developed and its performance characteristicsdetermined by The [employer] Commission. It has not been cleared orapproved by the [place] Food and Drug Administration. This test wasperformed in a CLIA certified laboratory and is intended forclinical purposes.Performed By: [employer] [place], [place] [address]Laboratory Director: Rogelio Miranda MD, PhDCLIA Number: [id number] Performed By: #### A HSVPC ####[place] [address] [place] [address] lab Director: KAYLYNN Moreno [place] [phone] lab Director: Wil Swanson MD Herpes simplex virus PCRon 0 01-22-2024 HSV 1 SUBTYPE BY PCR Not detected [facility] HSV 2 SUBTYPE BY PCR Not detected [facility] HSV Source .CSF [facility] MR Brain WO contraston 01-21 MHPN RIS CONSOLIDATED PN RIS CONSOLIDATED [facility] Radiology Study observation (narrative) [facility] MRI BRAIN WO CONTRASTon -0 MRI BRAIN WO CONTRAST Normal [facility] Magnesiumon 01-22-2024 Magnesium [Mass/Vol] 2.2 mg/dL 1.6 - 2 .6 mg/dL [facility] Magnesium [Mass/Vol] 2.2 mg/dL Normal 1.6-2.6 [facility] Comment on above: Performed By: #### Andres Arana, BMP, CDP, CHELO ####[facility] [address] [place], [place] [phone] lab Director: Ramiro Mark MD No Panel Informationon 01-21 [facility] POC Glucose Fingerstickon Glucose [Mass/Vol] 164 mg/dL High 75 - 110 mg/dL [facility] Interpretation and review of laboratory results Abnormal [facility] Glucose [Mass/Vol] 293 mg/dL High 75 - 110 mg/dL [facility] Interpretation and review of laboratory results Abnormal [facility] Glucose [Mass/Vol] 172 mg/dL High 75 - 110 mg/dL [facility] Interpretation and review of laboratory results Abnormal [facility] Phosphoruson 01-22-2024 Phosphate [Mass/Vol] 3.2 mg/dL 2.5 - 4 .5 mg/dL [facility] Phosphorus, Inorg.on 024 Phosphorus, Inorg. 3.2 mg/dL Normal 2.5-4.5 [facility] Comment on above: Performed By: #### Andres Arana, LEENA, CDP, CHELO ####[facility] [address] [place], [place] [phone] lab Director: Ramiro Mark MD Basic Metabolic Panelon Anion gap [Moles/Vol] 13 mmol/L 9 - 16 mmol/L [facility] Calcium [Mass/Vol] 7.9 mg/dL Low 8.6 - 10. 4 mg/dL [facility] Chloride [Moles/Vol] 105 mmol/L 98 - 10 7 mmol/L [facility] CO2 [Moles/Vol] 18 mmol/L Low 20 - 31 mmol/L [facility] Creatinine [Mass/Vol] 1.5 mg/dL High 0.70 - 1.20 mg/dL [facility] GFR/1.73 sq M.predicted MDRD (S/P/Bld) [Vol rate/Area] 58 mL/min/{1.73_m2} Low - PINF [facility] Glucose [Mass/Vol] 287 mg/dL High 74 - 99 mg/dL [facility] Interpretation and review of laboratory results Abnormal [facility] Potassium [Moles/Vol] 4.2 mmol/L 3.7 - 5.3 mmol/L [facility] Sodium [Moles/Vol] 136 mmol/L 136 - 145 mmol/L [facility] Urea nitrogen [Mass/Vol] 29 mg/dL High 6 - 20 mg/dL [facility] Basic Metabolic Profon 01-20 Anion gap [Moles/Vol] 13 mmol/L Normal 9-16 [facility] Comment on above: Performed By: #### B MP, CHELO, CDP, MG ####[facility] [address] [place] [address] Lab Director: Ramiro Mark MD Calcium [Mass/Vol] 7.9 mg/dL Low 8.6-10.4 [facility] Comment on above: Performed By: #### B MP, CHELO, CDP, MG ####[facility] [address]th[address] [place] [address] Lab Director: Ramiro Mark MD Chloride [Moles/Vol] 105 mmol/L Normal 98-107 [facility] Comment on above: Performed By: #### B MP, CHELO, CDP, MG ####[facility] [address]ys[address]ral[address] [place] [address] Lab Director: Ramiro Mark MD CO2 [Moles/Vol] 18 mmol/L Low 20-31 [facility] Comment on above: Performed By: #### B MP, CHELO, CDP, MG ####[facility] [address] [place], [place] 1475008 Lab Director: Ramiro Mark MD Creatinine [Mass/Vol] 1.5 mg/dL High 0.70-1.20 [facility] Comment on above: Performed By: #### B MP, CHELO, CDP, MG ####[facility] [address] [place] [address] Lab Director: Ramiro Mark MD GFR/1.73 sq M.predicted among non-blacks MDRD (S/P/Bld) [Vol rate/Area] 58 mL/min/{1.73_m2} Low >60 [facility] Comment on above: Result Comment: Thes e [...] tubular secretion. Performed By: #### B MP, CHELO, CDP, MG ####[facility] [address] [place], [place] [address])[phone] Director: Ramiro Mark MD Glucose [Mass/Vol] 287 mg/dL High 74-99 [facility] Comment on above: Performed By: #### B MP, CHELO, CDP, MG ####[facility] [address] [place], [place] [address])[phone] Director: Ramiro Mark MD Potassium [Moles/Vol] 4.2 mmol/L Normal 3.7-5.3 [facility] Comment on above: Performed By: #### B MP, CHELO, CDP, MG ####[facility] [address] [place], [place] [phone] Director: Ramiro Mark MD Sodium [Moles/Vol] 136 mmol/L Normal 136-145 [facility] Comment on above: Performed By: #### B MP, CHELO, CDP, MG ####[facility] [address] [place] [address] Lab Director: Ramiro Mark MD Urea nitrogen [Mass/Vol] 29 mg/dL High 6-20 [facility] Comment on above: Performed By: #### B MP, CHELO, CDP, MG ####[facility] [address] [place], [place] [phone] lab Director: Ramiro Mark MD CBC with Auto Differentialon 01-21-2024 Basophils (Bld) [#/Vol] 0.03 10*3/uL [facility] Basophils/100 WBC (Bld) 0 % 0 - 2 % [facility] Eosinophils (Bld) [#/Vol] 0.06 10*3/uL [facility] Eosinophils/100 WBC (Bld) 1 % 1 - 4 % [facility] Erythrocyte distribution width (RBC) [Ratio] 14.2 % 11.8 - 14.4 % [facility] Hematocrit (Bld) [Volume fraction] 31.9 % Low 40.7 - 50.3 % [facility] Hemoglobin (Bld) [Mass/Vol] 10.3 g/dL Low 13.0 - 17.0 g/dL [facility] Immature granulocytes (Bld) [#/Vol] 0.03 10*3/uL [facility] Immature granulocytes/100 WBC (Bld) 0 % 0 [facility] Interpretation and review of laboratory results Abnormal [facility] Lymphocytes/100 WBC (Bld) 14 % Low 24 - 43 % [facility] Lymphocytes/100 WBC (Bld) 1.29 % [facility] MCH (RBC) [Entitic mass] 29.3 pg 25.2 - 33.5 pg [facility] MCHC (RBC) [Mass/Vol] 32.3 g/dL 28.4 - 34.8 g/dL [facility] MCV (RBC) [Entitic vol] 90.6 fL 82.6 - 102.9 fL [facility] Monocytes/100 WBC (Bld) 8 % 3 - 12 % [facility] Monocytes/100 WBC (Bld) 0.70 % [facility] Neutrophils/100 WBC (Bld) 77 % High 36 - 65 % [facility] Nucleated RBC/100 WBC (Bld) [Ratio] 0.0 % 0.0 per 100 WBC [facility] Platelet mean volume (Bld) [Entitic vol] 10.7 fL 8.1 - 13.5 fL [facility] Platelets (Bld) [#/Vol] 162 10*3/uL [facility] RBC (Bld) [#/Vol] 3.52 10*6/uL Low 4.21 - 5.7 7 m/uL [facility] Segmented neutrophils/100 WBC (Bld) 7.13 % [facility] WBC other (Bld) [#/Vol] 9.2 [facility] CBC with Diffon 01-21-2024 Abs. Basophil 0.03 k/uL Normal 0.00-0.20 [facility] Comment on above: Performed By: #### B MP, CHELO, CDP, MG ####[facility] [address] [place], [place] [address])[phone] Director: Ramiro Mark MD Abs.Imm.Granulocyte 0.03 k/uL Normal 0.00-0.30 [facility] Comment on above: Performed By: #### B MP, CHELO, CDP, MG ####[facility] [address]24[address] [place], [place] [phone] Director: Ramiro Mark MD Abs.Neutrophil (Seg) 7.13 k/uL Normal 1.50-8.10 [facility] Comment on above: Performed By: #### B MP, CHELO, CDP, MG ####[facility] [address]pq[address]mu[address] [place] [address] Lab Director: Ramiro Mark MD Basophils/100 WBC (Bld) 0 % Normal 0-2 [facility] Comment on above: Performed By: #### B MP, CHELO, CDP, MG ####[facility] [address]bt[address] [place] [address] Lab Director: Ramiro Mark MD Eosinophils (Bld) [#/Vol] 0.06 10*3/uL Normal 0.00-0.44 [facility] Comment on above: Performed By: #### B MP, CHELO, CDP, MG ####[facility] [address]zhwdsctexp16[address] [place], [place] [address])[phone] Director: Ramiro Mark MD Eosinophils/100 WBC (Bld) 1 % Normal 1-4 [facility] Comment on above: Performed By: #### B MP, CHELO, CDP, MG ####[facility] [address] [place], [place] [address])[phone] Director: Ramiro Mark MD Erythrocyte distribution width (RBC) [Ratio] 14.2 % Normal 11.8-14.4 [facility] Comment on above: Performed By: #### B MP, CHELO, CDP, MG ####[place], [place] [address])[phone] Director: Ramiro Mark MD Hematocrit (Bld) [Volume fraction] 31.9 % Low 40.7-50.3 [facility] Comment on above: Performed By: #### B MP, CHELO, CDP, MG ####[facility] [address] [place], [place] [address])[phone] Director: Ramiro Mark MD Hemoglobin (Bld) [Mass/Vol] 10.3 g/dL Low 13.0-17.0 [facility] Comment on above: Performed By: #### B MP, CHELO, CDP, MG ####[facility] [address] [place], [place] [address])[phone] Director: Ramiro Mark MD Immature granulocytes/100 WBC (Bld) 0 % Normal 0 [facility] Comment on above: Performed By: #### B MP, CHELO, CDP, MG ####[facility] [address]octrqpvqb16[address] [place], [place] [address])[phone] Director: Ramiro Mark MD Lymphocytes (Bld) [#/Vol] 1.29 10*3/uL Normal 1.10-3.70 [facility] Comment on above: Performed By: #### B MP, CHELO, CDP, MG ####[facility] [address]ie[address]xmaz[address]25 [place] [address] Lab Director: Ramiro Mark MD Lymphocytes/100 WBC (Bld) 14 % Low 24-43 [facility] Comment on above: Performed By: #### B MP, CHELO, CDP, MG ####[facility] [address]lsyeidtrstg1921 [place] [address] Lab Director: Ramiro Mark MD MCH (RBC) [Entitic mass] 29.3 pg Normal 25.2-33.5 [facility] Comment on above: Performed By: #### B MP, CHELO, CDP, MG ####[facility] [address] [place], [place] [address])[phone] Director: Ramiro Mark MD MCHC (RBC) [Mass/Vol] 32.3 g/dL Normal 28.4-34.8 [facility] Comment on above: Performed By: #### B MP, CHELO, CDP, MG ####[facility] [address] [place], [place] [address])[phone] Director: Ramiro Mark MD MCV (RBC) [Entitic vol] 90.6 fL Normal 82.6-102.9 [facility] Comment on above: Performed By: #### B MP, CHELO, CDP, MG ####[facility] [address]sec9258 [place] [address] Lab Director: Ramiro Mark MD Monocytes (Bld) [#/Vol] 0.70 10*3/uL Normal 0.10-1.20 [facility] Comment on above: Performed By: #### B MP, CHELO, CDP, MG ####[facility] [address]us[address]acgq7009 [place] [address] Lab Director: Ramiro Mark MD Monocytes/100 WBC (Bld) 8 % Normal 3-12 [facility] Comment on above: Performed By: #### B MP, CHELO, CDP, MG ####[facility] [address]kw[address]7441 [place], [place] [phone] Director: Ramiro Mark MD Neutrophil (Seg) 77 % High 36-65 [facility] Comment on above: Performed By: #### B MP, CHELO, CDP, MG ####[facility] [address] [place] [address] [phone] Director: Ramiro Mark MD NRBC Automated 0.0 per 100 WBC Normal 0.0 [facility] Comment on above: Performed By: #### B MP, CHELO, CDP, MG ####[facility] [address]ceorhbbtn0116 [place], [place] [phone] Director: Ramiro Mark MD Platelet mean volume (Bld) [Entitic vol] 10.7 fL Normal 8.1-13.5 [facility] Comment on above: Performed By: #### B MP, CHELO, CDP, MG ####[facility] [address] [place] [address] [phone] Director: Ramiro Mark MD Platelets (Bld) [#/Vol] 162 10*3/uL Normal 138-453 [facility] Comment on above: Performed By: #### B MP, CHELO, CDP, MG ####[facility] [address] [place] [address] [phone] Director: Ramiro Mark MD RBC (Bld) [#/Vol] 3.52 10*6/uL Low 4.21-5.77 [facility] Comment on above: Performed By: #### B MP, CHELO, CDP, MG ####[facility] [address]pfikdfcmirc[address]86 [place], [place] [phone] Director: Ramiro Mark MD WBC (Bld) [#/Vol] 9.2 10*3/uL Normal 3.5-11.3 [facility] Comment on above: Performed By: #### B MP, CHELO, CDP, MG ####[facility] [place], [place] 9473008 lab Director: Ramiro Mark MD Cardiac echo study Procedure Ordered By: Christopher Cochran on 01-21-2024 Ao Root Index 1.57 cm/m2 [employer] Phone: Aortic Root 3.3 cm [employer] Phone: AV Area by Peak Velocity 2.4 cm2 [employer] Phone: AV Area by VTI 2.4 cm2 [employer] Phone: AV Mean Gradient 4 mmHg [employer] Phone: AV Mean Velocity 0.9 m/s [employer] Phone: AV Peak Gradient 7 mmHg [employer] Phone: AV Peak Velocity 1.4 m/s [employer] Phone: AV Velocity Ratio 0.71 [employer] Phone: AV VTI 27.9 cm [employer] Phone: EZIO/BSA Peak Velocity 1.1 cm2/m2 [employer] Phone: EZIO/BSA VTI 1.1 cm2/m2 [employer] Phone: Body surface area Derived from formula 2.13 m2 [employer] Phone: E/E' Lateral 12.17 [employer] Phone: E/E' Ratio (Averaged) 10.65 [employer] Phone: Est. RA Pressure 8 mmHg BON [employer] Work Phone: Fractional Shortening 2D 20 % 28 - 44 % [employer] Work Phone: Interpretation and review of laboratory results Abnormal [employer] Work Phone: IVSd 1.5 cm Abnormal 0.6 - 1.0 cm [employer] Work Phone: LA Area 2C 13.9 cm2 [employer] Work Phone: LA Area 4C 16.0 cm2 [employer] Work Phone: LA Diameter 3.5 cm [employer] Phone: LA Major [place] 4.6 cm [employer] Phone: LA Minor [place] 4.3 cm [employer] Work Phone: LA Size Index 1.67 cm/m2 [employer] Work Phone: LA Volume BP 41 mL 18 - 58 mL [employer] Work Phone: LA Volume Index BP 20 ml/m2 16 - 34 ml/m2 [employer] Work Phone: LA Volume Index MOD A2C 19 ml/m2 16 - 34 ml/m2 [employer] Work Phone: LA Volume Index MOD A4C 20 ml/m2 16 - 34 ml/m2 [employer] Work Phone: LA Volume MOD A2C 39 mL 18 - 58 mL [employer] Work Phone: LA Volume MOD A4C 42 mL 18 - 58 mL [employer] Work Phone: LA/AO Root Ratio 1.06 [facility] [employer] Work Phone: LV E' Lateral Velocity 6 cm/s [employer] Work Phone: LV E' Septal Velocity 8 cm/s [employer] Work Phone: LV EDV A2C 73 mL [employer] Work Phone: LV EDV A4C 83 mL [employer] Work Phone: LV EDV Index A2C 35 mL/m2 [facility] [employer] Work Phone: LV EDV Index A4C 40 mL/m2 C-sam Work Phone: LV Ejection Fraction A2C 58 % [employer] Work Phone: LV Ejection Fraction A4C 51 % [employer] Work Phone: LV ESV A2C 31 mL [employer] Work Phone: LV ESV A4C 40 mL [employer] Work Phone: LV ESV Index A2C 15 mL/m2 [facility] [employer] Work Phone: LV ESV Index A4C 19 mL/m2 C-sam Work Phone: LV Mass 2D 220.7 g 88 - 224 g [employer] Work Phone: LV Mass 2D Index 105.1 g/m2 49 - 115 g/m2 [employer] Work Phone: LV RWT Ratio 0.70 [employer] Work Phone: LVIDd 4.0 cm Abnormal 4.2 - 5.9 cm [employer] Work Phone: LVIDd Index 1.90 cm/m2 [employer] Work Phone: LVIDs 3.2 cm [employer] Work Phone: LVIDs Index 1.52 cm/m2 [facility] Work Phone: LVOT Area 3.5 cm2 BON [employer] Work Phone: LVOT Diameter 2.1 cm [facility]ON [facility] Work Phone: LVOT Mean Gradient 2 mmHg BON [facility] [email or web address] [facility] Work Phone: [phone] LVOT Peak Gradient 4 mmHg BON [facility] [employer] [employer] Work Phone: LVOT Peak Velocity 1.0 m/s BON [facility] [employer] Work Phone: LVOT Stroke Volume Index 32.5 mL/m2 [facility]ON [employer] Work Phone: LVOT SV 68.2 ml [facility]ON [employer] Work Phone: LVOT VTI 19.7 cm [facility]ON [employer] Work Phone: LVOT:AV VTI Index 0.71 BON SEC OURS [employer] Work Phone: [phone] LVPWd 1.4 cm Abnormal 0.6 - 1.0 cm SHARON [employer] Work Phone: MV A Velocity 0.69 m/s SHARON [employer] Work Phone: MV Area by VTI 3.0 cm2 BON [employer] StudiosBRIANNA S [employer] Work Phone: MV E Velocity 0.73 m/s BON [employer] Work Phone: MV E Wave Deceleration Time 155.0 ms SHARON [employer] Work Phone: MV E/A 1.06 [facility]ON [employer] Work Phone: MV Max Velocity 0.9 m/s BON SECOU RS [employer] Work Phone: MV Mean Gradient 2 mmHg BON SECO URS [employer] Work Phone: MV Mean Velocity 0.6 m/s BON SECO URS [employer] Work Phone: MV Peak Gradient 3 mmHg BON SECO URS [employer] Work Phone: MV VTI 22.7 cm BON SECELYSIA [employer] Work Phone: MV:LVOT VTI Index 1.15 BON SEC OURS [employer] Work Phone: PV Max Velocity 0.9 m/s BON SECOU RS [employer] Work Phone: PV Peak Gradient 3 mmHg BON SECO URS [employer] Work Phone: RV Basal Dimension 3.8 cm BON COURS [employer] Work Phone: RV Free Wall Peak S' 17 cm/s SH[facility]ON [facility] Work Phone: RVSP 40 mmHg [facility]ON [facility] Work Phone: TAPSE 3.1 cm 1.7 cm BON LASHONDA [employer] Work Phone: TR Max Velocity 2.82 m/s BON SECOU RS [employer] Work Phone: TR Peak Gradient 32 mmHg BON SECO MEÑO [employer] Work Phone: [facility]ON [facility] Work Phone: Cardiac echo study Procedure on 01-21-2024 [facility] Radiology Study observation (narrative) SHARON [employer] Glucose,Whole Bloodon 2023 Glucose [Mass/Vol] 195 mg/dL High 75-110 [facility] Glucose [Mass/Vol] 237 mg/dL High 75-110 [facility] Glucose [Mass/Vol] 205 mg/dL High 75-110 [facility] Glucose [Mass/Vol] 237 mg/dL High 75-110 [facility] Glucose [Mass/Vol] 248 mg/dL High 75-110 [facility] Lyme Disease AB, CSFon 01-20 B. burgdorferi Ab IA Qn (CSF) 0.08 NINF [facility] Lyme Disease Ab,CSFon 2023 B burgdorferi Ab,CSF 0.08 IV Normal <=0.90 [facility] Comment on above: Result Comment: (NOT [...] was developed and its performance characteristicsdetermined by The Art Commission. It has not been cleared orapproved by the [place] Food and Drug Administration. This test wasperformed in a CLIA certified laboratory and is intended forclinical purposes.Performed By: [employer] [place] [id number] Director: Rogelio Miranda MD, PhDCLIA Number: [id number] Performed By: #### C FCNT, MEVP, CFVD, CGLU, CTP ####[address] [place] [address] Lab Director: Ramiro Mark MD#### DESHAUN, CHESTER ####[employer] [place], [place] [id number] lab Director: Wil Swanson MD Magnesiumon 01-21-2024 Magnesium [Mass/Vol] 1.9 mg/dL 1.6 - 2 .6 mg/dL [facility] Magnesium [Mass/Vol] 1.9 mg/dL Normal 1.6-2.6 [facility] Comment on above: Performed By: #### B MP, CHELO, CDP, MG ####[facility] [address] [place] [address] lab Director: Ramiro Mark MD No Panel Informationon 01-20 [facility] POC Glucose Fingerstickon Glucose [Mass/Vol] 195 mg/dL High 75 - 110 mg/dL [facility] Interpretation and review of laboratory results Abnormal [facility] Glucose [Mass/Vol] 237 mg/dL High 75 - 110 mg/dL [facility] Interpretation and review of laboratory results Abnormal [facility] Glucose [Mass/Vol] 205 mg/dL High 75 - 110 mg/dL [facility] Interpretation and review of laboratory results Abnormal [facility] Glucose [Mass/Vol] 237 mg/dL High 75 - 110 mg/dL [facility] Interpretation and review of laboratory results Abnormal [facility] Glucose [Mass/Vol] 248 mg/dL High 75 - 110 mg/dL [facility] Interpretation and review of laboratory results Abnormal [facility] Phosphoruson 01-21-2024 Phosphate [Mass/Vol] 3.9 mg/dL 2.5 - 4 .5 mg/dL [facility] Phosphorus, Inorg.on 024 Phosphorus, Inorg. 3.9 mg/dL Normal 2.5-4.5 [facility] Comment on above: Performed By: #### B MP, CHELO, CDP, MG ####[facility] [address] [place], [place] [phone] lab Director: Ramiro Mark MD Arterial Bld Gas,POCon 01-19 Jody Test Positive Normal [facility] FIO2 30.0 Normal [facility] HCO3 (Bld) [Moles/Vol] 22.4 mmol/L Normal 21.0-28.0 M [facility] Negative Base Excess (calc) 1.3 mmol/L Normal 0.0-2.0 [facility] O2 Device Adult Ventilator Normal [facility] Oxygen saturation in Blood 99.2 % High 94.0-98.0 [facility] pCO2, Arterial 32.5 mm Hg Low 35.0-48.0 [facility] pH, Arterial 7.446 Normal 7.350-7.450 [facility] pO2, Arterial 135.0 mm Hg High 83.0-108.0 [facility] Site Drawn Right Radial Artery Normal [facility] Arterial Blood Gas, POCon Jody Test Positive [facility] FIO2 30.0 [facility] XL [facility] HCO3 (Bld) [Moles/Vol] 22.4 mmol/L 21.0 - 28.0 mmol/L [facility] Negative Base Excess, Art 1.3 mmol/L 0.0 - 2.0 mmol/L [facility] O2 Delivery Device Adult Ventilator [facility] Oxygen saturation in Blood 99.2 % High 94.0 - 98.0 % [facility] POC pCO2 32.5 Low [facility] POC pH 7.446 7.350 - 7.450 [facility] POC PO2 135.0 High [facility] Sample Site Right Radial Artery [facility] Basic Metabolic Panelon Anion gap [Moles/Vol] 12 mmol/L 9 - 16 mmol/L [facility] Calcium [Mass/Vol] 8.0 mg/dL Low 8.6 - 10. 4 mg/dL [facility] Chloride [Moles/Vol] 107 mmol/L 98 - 10 7 mmol/L [facility] CO2 [Moles/Vol] 16 mmol/L Low 20 - 31 mmol/L [facility] Creatinine [Mass/Vol] 1.5 mg/dL High 0.70 - 1.20 mg/dL [facility] GFR/1.73 sq M.predicted MDRD (S/P/Bld) [Vol rate/Area] 55 mL/min/{1.73_m2} Low - PINF [facility] Glucose [Mass/Vol] 211 mg/dL High 74 - 99 mg/dL [facility] Potassium [Moles/Vol] 4.0 mmol/L 3.7 - 5.3 mmol/L [facility] Sodium [Moles/Vol] 135 mmol/L Low 136 - 145 mmol/L [facility] Urea nitrogen [Mass/Vol] 32 mg/dL High 6 - 20 mg/dL [facility] Anion gap [Moles/Vol] 13 mmol/L 9 - 16 mmol/L [facility] Calcium [Mass/Vol] 8.3 mg/dL Low 8.6 - 10. 4 mg/dL [facility] Chloride [Moles/Vol] 106 mmol/L 98 - 10 7 mmol/L [facility] CO2 [Moles/Vol] 18 mmol/L Low 20 - 31 mmol/L [facility] Creatinine [Mass/Vol] 1.6 mg/dL High 0.70 - 1.20 mg/dL [facility] GFR/1.73 sq M.predicted MDRD (S/P/Bld) [Vol rate/Area] 51 mL/min/{1.73_m2} Low - PINF [facility] Glucose [Mass/Vol] 244 mg/dL High 74 - 99 mg/dL [facility] Potassium [Moles/Vol] 4.4 mmol/L 3.7 - 5.3 mmol/L [facility] Sodium [Moles/Vol] 137 mmol/L 136 - 145 mmol/L [facility] [employer] [facility] Urea nitrogen [Mass/Vol] 33 mg/dL High 6 - 20 mg/dL [facility] [employer] [facility] Anion gap [Moles/Vol] 10 mmol/L 9 - 16 mmol/L [facility] [email or web address] [facility] Calcium [Mass/Vol] 7.6 mg/dL Low 8.6 - 10. 4 mg/dL [facility] [employer] [facility] Chloride [Moles/Vol] 106 mmol/L 98 - 10 7 mmol/L [facility] CO2 [Moles/Vol] 20 mmol/L 20 - 31 mmol/L [facility] Creatinine [Mass/Vol] 1.6 mg/dL High 0.70 - 1.20 mg/dL [facility] GFR/1.73 sq M.predicted MDRD (S/P/Bld) [Vol rate/Area] 51 mL/min/{1.73_m2} Low - PINF [facility] Glucose [Mass/Vol] 186 mg/dL High 74 - 99 mg/dL [facility] Interpretation and review of laboratory results Abnormal [facility] Potassium [Moles/Vol] 4.0 mmol/L 3.7 - 5.3 mmol/L [facility] Sodium [Moles/Vol] 136 mmol/L 136 - 145 mmol/L [facility] Urea nitrogen [Mass/Vol] 39 mg/dL High 6 - 20 mg/dL [facility] Anion gap [Moles/Vol] 9 mmol/L 9 - 16 mmol/L [facility] Calcium [Mass/Vol] 7.9 mg/dL Low 8.6 - 10. 4 mg/dL [facility] Chloride [Moles/Vol] 105 mmol/L 98 - 10 7 mmol/L [facility] CO2 [Moles/Vol] 21 mmol/L 20 - 31 mmol/L [facility] Creatinine [Mass/Vol] 1.6 mg/dL High 0.70 - 1.20 mg/dL [facility] GFR/1.73 sq M.predicted MDRD (S/P/Bld) [Vol rate/Area] 51 mL/min/{1.73_m2} Low - PINF [facility] Glucose [Mass/Vol] 180 mg/dL High 74 - 99 mg/dL [facility] Interpretation and review of laboratory results Abnormal [facility] Potassium [Moles/Vol] 4.3 mmol/L 3.7 - 5.3 mmol/L [facility] Sodium [Moles/Vol] 135 mmol/L Low 136 - 145 mmol/L [facility] Urea nitrogen [Mass/Vol] 41 mg/dL High 6 - 20 mg/dL [facility] Anion gap [Moles/Vol] 10 mmol/L 9 - 16 mmol/L [facility] Calcium [Mass/Vol] 8.1 mg/dL Low 8.6 - 10. 4 mg/dL [facility] Chloride [Moles/Vol] 106 mmol/L 98 - 10 7 mmol/L [facility] CO2 [Moles/Vol] 21 mmol/L 20 - 31 mmol/L [facility] Creatinine [Mass/Vol] 1.6 mg/dL High 0.70 - 1.20 mg/dL [facility] GFR/1.73 sq M.predicted MDRD (S/P/Bld) [Vol rate/Area] 51 mL/min/{1.73_m2} Low - PINF [facility] Glucose [Mass/Vol] 135 mg/dL High 74 - 99 mg/dL [facility] Interpretation and review of laboratory results Abnormal [facility] Potassium [Moles/Vol] 4.0 mmol/L 3.7 - 5.3 mmol/L [facility] Sodium [Moles/Vol] 137 mmol/L 136 - 145 mmol/L [facility] Urea nitrogen [Mass/Vol] 40 mg/dL High 6 - 20 mg/dL [facility] Basic Metabolic Profon 01-19 Anion gap [Moles/Vol] 12 mmol/L Normal 9-16 [facility] Comment on above: Performed By: #### B MP, CHELO, MG ####[email or web address] [address] [place] [address] Lab Director: Ramiro Mark MD Calcium [Mass/Vol] 8.0 mg/dL Low 8.6-10.4 [facility] Comment on above: Performed By: #### B MP, CHELO, MG ####[email or web address] [address] [place] [id number] lab Director: Ramiro Mark MD Chloride [Moles/Vol] 107 mmol/L Normal 98-107 [facility] Comment on above: Performed By: #### B MP, CHEOL, MG ####[facility] [address] [place] [address] Lab Director: Ramiro Mark MD CO2 [Moles/Vol] 16 mmol/L Low 20-31 [facility] Comment on above: Performed By: #### B MP, CHELO, MG ####[facility] [address]tig[address] [place] [address] Lab Director: Ramiro Mark MD Creatinine [Mass/Vol] 1.5 mg/dL High 0.70-1.20 [facility] Comment on above: Performed By: #### B MP, CHELO, MG ####[facility] [address] [place], [place] [address])[phone] Director: Ramiro Mark MD GFR/1.73 sq M.predicted among non-blacks MDRD (S/P/Bld) [Vol rate/Area] 55 mL/min/{1.73_m2} Low >60 [facility] Comment on above: Result Comment: Thes e [...] tubular secretion. Performed By: #### B MP, CHELO, MG ####[facility] [address] [place] [address] Lab Director: Ramiro Mark MD Glucose [Mass/Vol] 211 mg/dL High 74-99 [facility] Comment on above: Performed By: #### B MP, CHELO, MG ####[facility] [address] [place], [place] [id number])[phone] Director: Ramiro Mark MD Potassium [Moles/Vol] 4.0 mmol/L Normal 3.7-5.3 [facility] Comment on above: Performed By: #### B MP, CHELO, MG ####[facility] [address] [place], [place] [id number])[phone] Director: Ramiro Mark MD Sodium [Moles/Vol] 135 mmol/L Low 136-145 [facility] Comment on above: Performed By: #### B MP, CHELO, MG ####[facility] [address] [place], [place] [phone])[phone] Director: Ramiro Mark MD Urea nitrogen [Mass/Vol] 32 mg/dL High 6-20 [facility] Comment on above: Performed By: #### B MP, CHELO, MG ####[facility] [address] [place], [place] [id number])[phone] Director: Ramiro Mark MD Anion gap [Moles/Vol] 13 mmol/L Normal 9-16 [facility] Comment on above: Performed By: #### B MP, MG, CHELO ####[facility] [address] [place], [place] [phone])[phone] Director: Ramiro Mark MD Calcium [Mass/Vol] 8.3 mg/dL Low 8.6-10.4 [facility] Comment on above: Performed By: #### B MP, MG, CHELO ####[facility] [address] [place], [place] [phone] Director: Ramiro Mark MD Chloride [Moles/Vol] 106 mmol/L Normal 98-107 [facility] Comment on above: Performed By: #### B MP, MG, CHELO ####[facility] [address] [place], [place] [phone] Director: Ramiro Mark MD CO2 [Moles/Vol] 18 mmol/L Low 20-31 [facility] Comment on above: Performed By: #### B MP, MG, CHELO ####[facility] [address]tt[address]37[address] [place], [place] [phone])[phone] Director: Ramiro Mark MD Creatinine [Mass/Vol] 1.6 mg/dL High 0.70-1.20 [facility] Comment on above: Performed By: #### B MP, MG, CHELO ####[facility] [address] [place] [address] [id number])[phone] Director: Ramiro Mark MD GFR/1.73 sq M.predicted among non-blacks MDRD (S/P/Bld) [Vol rate/Area] 51 mL/min/{1.73_m2} Low >60 [facility] Comment on above: Result Comment: Thes e [...] By: #### B MP, MG, CHELO ####[facility] [address] [place] [address])[phone] Director: Ramiro Mark MD Glucose [Mass/Vol] 244 mg/dL High 74-99 [facility] Comment on above: Performed By: #### B MP, MG, CHELO ####[facility] [address] [place] [address] Lab Director: Ramiro Mark MD Potassium [Moles/Vol] 4.4 mmol/L Normal 3.7-5.3 [facility] Comment on above: Performed By: #### B MP, MG, CHELO ####[facility] Ed[address] [place], [place] [phone])[phone] Director: Ramiro Mark MD Sodium [Moles/Vol] 137 mmol/L Normal 136-145 [facility] Comment on above: Performed By: #### B MP, MG, CHELO ####[facility] [address] [place], [place] [phone])[phone] Director: Ramiro Mark MD Urea nitrogen [Mass/Vol] 33 mg/dL High 6-20 [facility] Comment on above: Performed By: #### B MP, MG, CHELO ####[facility] B[address]ldz[address]2 [place], [place] [id number])[phone] Director: Ramiro Mark MD Anion gap [Moles/Vol] 10 mmol/L Normal 9-16 [facility] Comment on above: Performed By: #### L ACTIC, CHELO, MG, BMP ####[facility] [address] [place], [place] [phone] Director: Ramiro Mark MD Calcium [Mass/Vol] 7.6 mg/dL Low 8.6-10.4 [facility] Comment on above: Performed By: #### L ACTIC, CHELO, MG, BMP ####[facility] F[address]tfimf[address]52[address] [place], [place] [phone])[phone] Director: Ramiro Mark MD Chloride [Moles/Vol] 106 mmol/L Normal 98-107 [facility] Comment on above: Performed By: #### L ACTIC, CHELO, MG, BMP ####[facility] Mphv[address]79[address] [place], [place] [phone])[phone] Director: Ramiro Mark MD CO2 [Moles/Vol] 20 mmol/L Normal 20-31 [facility] Comment on above: Performed By: #### L ACTIC, CHELO, MG, BMP ####[facility] [address] [place], [place] [phone])[phone] Director: Ramiro Mark MD Creatinine [Mass/Vol] 1.6 mg/dL High 0.70-1.20 [facility] Comment on above: Performed By: #### L ACTIC, CHELO, MG, BMP ####[facility] [address] [place], [place] [phone] Director: Ramiro Mark MD GFR/1.73 sq M.predicted among non-blacks MDRD (S/P/Bld) [Vol rate/Area] 51 mL/min/{1.73_m2} Low >60 [facility] Comment on above: Result Comment: Thes e [...] renal tubular secretion. Performed By: #### L ACTIC, CHELO, MG, BMP ####[facility] [address] [place], [place] [address])[phone] Director: Ramiro Mark MD Glucose [Mass/Vol] 186 mg/dL High 74-99 [facility] Comment on above: Performed By: #### L ACTIC, CHELO, MG, BMP ####[facility] [address]fc[address] [place], [place] [address])[phone] Director: Ramiro Mark MD Potassium [Moles/Vol] 4.0 mmol/L Normal 3.7-5.3 [facility] Comment on above: Performed By: #### L ACTIC, CHELO, MG, BMP ####[facility] [address] [place] [address] Lab Director: Ramiro Mark MD Sodium [Moles/Vol] 136 mmol/L Normal 136-145 [facility] Comment on above: Performed By: #### L ACTIC, CHELO, MG, BMP ####[facility] [address] [place], [place] [address])[phone] Director: Ramiro Mark MD Urea nitrogen [Mass/Vol] 39 mg/dL High 6-20 [facility] Comment on above: Performed By: #### L ACTIC, CHELO, MG, BMP ####[facility] [address]rguf[address] [place] [address] Lab Director: Ramiro Mark MD Anion gap [Moles/Vol] 9 mmol/L Normal 9-16 [facility] Comment on above: Performed By: #### B MP, CHELO, TRIG, VNCR, CDP, MG ####[facility] [address] [place] [address] Lab Director: Ramiro Mark MD Calcium [Mass/Vol] 7.9 mg/dL Low 8.6-10.4 [facility] Comment on above: Performed By: #### B MP, CHELO, TRIG, VNCR, CDP, MG ####[facility] [address] [place], [place] [address])[phone] Director: Rmairo Mark MD Chloride [Moles/Vol] 105 mmol/L Normal 98-107 [facility] Comment on above: Performed By: #### B MP, CHELO, TRIG, VNCR, CDP, MG ####[facility] [address]ncxcggn[address] [place], [place] [address])[phone] Director: Ramiro Mark MD CO2 [Moles/Vol] 21 mmol/L Normal 20-31 [facility] Comment on above: Performed By: #### B MP, CHELO, TRIG, VNCR, CDP, MG ####[facility] [address]wwlzv[address] [place], [place] [address])[phone] Director: Ramiro Mark MD Creatinine [Mass/Vol] 1.6 mg/dL High 0.70-1.20 [facility] Comment on above: Performed By: #### B MP, CHELO, TRIG, VNCR, CDP, MG ####[facility] [address]ypqtqqpsknc1644 [place], [place] [address])[phone] Director: Ramiro Mark MD GFR/1.73 sq M.predicted among non-blacks MDRD (S/P/Bld) [Vol rate/Area] 51 mL/min/{1.73_m2} Low >60 [facility] Comment on above: Result Comment: Thes e [...] tubular secretion. Performed By: #### B MP, CHELO, TRIG, VNCR, CDP, MG ####[facility] [address] [place] [address])[phone] Director: Ramiro Mark MD Glucose [Mass/Vol] 180 mg/dL High 74-99 [facility] Comment on above: Performed By: #### B MP, CHELO, TRIG, VNCR, CDP, MG ####[address] [address])[phone] Director: Ramiro Mark MD Potassium [Moles/Vol] 4.3 mmol/L Normal 3.7-5.3 [facility] Comment on above: Performed By: #### B MP, CHELO, TRIG, VNCR, CDP, MG ####[facility] [address] [place] [address])[phone] Director: Ramiro Mark MD Sodium [Moles/Vol] 135 mmol/L Low 136-145 [facility] Comment on above: Performed By: #### B MP, CHELO, TRIG, VNCR, CDP, MG ####[facility] [address] [place] [address])[phone] Director: Ramiro Mark MD Urea nitrogen [Mass/Vol] 41 mg/dL High 6-20 [facility] Comment on above: Performed By: #### B MP, CHELO, TRIG, VNCR, CDP, MG ####[facility] [address] [place], [place] [address])[phone] Director: Ramiro Mark MD Anion gap [Moles/Vol] 10 mmol/L Normal 9-16 [facility] Comment on above: Performed By: #### P HO, LACTIC, BMP, MG ####[facility] [address] [place], [place] [address])[phone] Director: Ramiro Mark MD Calcium [Mass/Vol] 8.1 mg/dL Low 8.6-10.4 [facility] Comment on above: Performed By: #### P HO, LACTIC, BMP, MG ####[facility] [address]gataxi[address] [place], [place] [address])[phone] Director: Ramiro Mark MD Chloride [Moles/Vol] 106 mmol/L Normal 98-107 [facility] Comment on above: Performed By: #### P HO, LACTIC, BMP, MG ####[facility] [address] [place], [place] [address])[phone] Director: Ramiro Mark MD CO2 [Moles/Vol] 21 mmol/L Normal 20-31 [facility] Comment on above: Performed By: #### P HO, LACTIC, BMP, MG ####[facility] [address] [place], [place] [address])[phone] Director: Ramiro Mark MD Creatinine [Mass/Vol] 1.6 mg/dL High 0.70-1.20 [facility] Comment on above: Performed By: #### P HO, LACTIC, BMP, MG ####[facility] [address] [place], [place] [address])[phone] Director: Ramiro Mark MD GFR/1.73 sq M.predicted among non-blacks MDRD (S/P/Bld) [Vol rate/Area] 51 mL/min/{1.73_m2} Low >60 [facility] Comment on above: Result Comment: Thes e [...] tubular secretion. Performed By: #### P HO, LACTIC, BMP, MG ####[facility] [address] [place] [address] Lab Director: Ramiro Mark MD Glucose [Mass/Vol] 135 mg/dL High 74-99 [facility] Comment on above: Performed By: #### P HO, LACTIC, BMP, MG ####[facility] [address] [place], [place] [address])[phone] Director: Ramiro Mark MD Potassium [Moles/Vol] 4.0 mmol/L Normal 3.7-5.3 [facility] Comment on above: Performed By: #### P HO, LACTIC, BMP, MG ####[facility] [address] [place], [place] [address])[phone] Director: Ramiro Mark MD Sodium [Moles/Vol] 137 mmol/L Normal 136-145 [facility] Comment on above: Performed By: #### P HO, LACTIC, BMP, MG ####[facility] [address] [place], [place] [address])[phone] Director: Ramiro Mark MD Urea nitrogen [Mass/Vol] 40 mg/dL High 6-20 [facility] Comment on above: Performed By: #### P HO, LACTIC, BMP, MG ####[facility] [address] [place] [address])[phone] Director: Ramiro Mark MD CBC with Auto Differentialon 01-20-2024 Basophils (Bld) [#/Vol] 0.04 10*3/uL [facility] Erythrocyte distribution width (RBC) [Ratio] 14.2 % 11.8 - 14.4 % [facility] Hematocrit (Bld) [Volume fraction] 30.7 % Low 40.7 - 50.3 % [facility] Hemoglobin (Bld) [Mass/Vol] 10.1 g/dL Low 13.0 - 17.0 g/dL [facility] Immature granulocytes (Bld) [#/Vol] 0.06 10*3/uL [facility] Interpretation and review of laboratory results Abnormal [facility] Lymphocytes/100 WBC (Bld) 1.10 % [facility] MCH (RBC) [Entitic mass] 29.4 pg 25.2 - 33.5 pg [facility] MCHC (RBC) [Mass/Vol] 32.9 g/dL 28.4 - 34.8 g/dL [facility] MCV (RBC) [Entitic vol] 89.2 fL 82.6 - 102.9 fL [facility] Monocytes/100 WBC (Bld) 0.71 % [facility] Neutrophils/100 WBC (Bld) 82 % High 36 - 65 % [facility] Nucleated RBC/100 WBC (Bld) [Ratio] 0.0 % 0.0 per 100 WBC [facility] Platelet mean volume (Bld) [Entitic vol] 10.3 fL 8.1 - 13.5 fL [facility] Platelets (Bld) [#/Vol] 158 10*3/uL [facility] RBC (Bld) [#/Vol] 3.44 10*6/uL Low 4.21 - 5.7 7 m/uL [facility] Segmented neutrophils/100 WBC (Bld) 9.08 % High [facility] WBC other (Bld) [#/Vol] 11.1 [facility] CBC with Diffon 01-20-2024 Basophils/100 WBC (Bld) 0 % Normal 0-2 [facility] Comment on above: Performed By: #### B MP, CHELO, TRIG, VNCR, CDP, MG ####[email or web address] [address] [place] [address] [facility] Director: Ramiro Mark MD Eosinophils (Bld) [#/Vol] 0.10 10*3/uL Normal 0.00-0.44 [facility] Comment on above: Performed By: #### B MP, CHELO, TRIG, VNCR, CDP, MG ####[facility] [address] [place], [place] [address])[phone] Director: Ramiro Mark MD Eosinophils/100 WBC (Bld) 1 % Normal 1-4 [facility] Comment on above: Performed By: #### B MP, CHELO, TRIG, VNCR, CDP, MG ####[facility] [address] [place], [place] [address])[phone] Director: Ramiro Mark MD Immature granulocytes/100 WBC (Bld) 1 % High 0 [facility] Comment on above: Performed By: #### B MP, CHELO, TRIG, VNCR, CDP, MG ####[facility] [address] [place], [place] [address])[phone] Director: Ramiro Mark MD Lymphocytes/100 WBC (Bld) 10 % Low 24-43 [facility] Comment on above: Performed By: #### B MP, CHELO, TRIG, VNCR, CDP, MG ####[facility] [address] [place] [address])[phone] Director: Ramiro Mark MD Monocytes/100 WBC (Bld) 6 % Normal 3-12 [facility] Comment on above: Performed By: #### B MP, CHELO, TRIG, VNCR, CDP, MG ####[facility] [address] [place], [place] [address])[phone] Director: Ramiro Mark MD Abs. Basophil 0.04 k/uL Normal 0.00-0.20 [facility] Comment on above: Performed By: #### B MP, CHELO, TRIG, VNCR, CDP, MG ####[facility] [address] [place], [place] [address])[phone] Director: Ramiro Mark MD Abs.Imm.Granulocyte 0.06 k/uL Normal 0.00-0.30 [facility] Comment on above: Performed By: #### B MP, CHELO, TRIG, VNCR, CDP, MG ####[facility] [address] [place], [place] [address])[phone] Director: Ramiro Mark MD Abs.Neutrophil (Seg) 9.08 k/uL High 1.50-8.10 [facility] Comment on above: Performed By: #### B MP, CHELO, TRIG, VNCR, CDP, MG ####[facility] [address] [place], [place] [id number])[phone] Director: Ramiro Mark MD Lymphocytes (Bld) [#/Vol] 1.10 10*3/uL Normal 1.10-3.70 [facility] Comment on above: Performed By: #### B MP, CHELO, TRIG, VNCR, CDP, MG ####[place] [address] [place], [place] [address])[phone] Director: Ramiro Mark MD Monocytes (Bld) [#/Vol] 0.71 10*3/uL Normal 0.10-1.20 [facility] Comment on above: Performed By: #### B MP, CHELO, TRIG, VNCR, CDP, MG ####[address] [address])[phone] Director: Ramiro Mark MD Neutrophil (Seg) 82 % High 36-65 [facility] Comment on above: Performed By: #### B MP, CHELO, TRIG, VNCR, CDP, MG ####[facility] [address] [place], [place] [address])[phone] Director: Ramiro Mark MD Erythrocyte distribution width (RBC) [Ratio] 14.2 % Normal 11.8-14.4 [facility] Comment on above: Performed By: #### B MP, CHELO, TRIG, VNCR, CDP, MG ####[facility] [address] [place], [place] [address])[phone] Director: Ramiro Mark MD Hematocrit (Bld) [Volume fraction] 30.7 % Low 40.7-50.3 [facility] Comment on above: Performed By: #### B MP, CHELO, TRIG, VNCR, CDP, MG ####[facility] [address] [place] [address] Lab Director: Ramiro Mark MD Hemoglobin (Bld) [Mass/Vol] 10.1 g/dL Low 13.0-17.0 [facility] Comment on above: Performed By: #### B MP, CHELO, TRIG, VNCR, CDP, MG ####[facility] [address] [place] [address] [phone] Director: Ramiro Mark MD MCH (RBC) [Entitic mass] 29.4 pg Normal 25.2-33.5 [facility] Comment on above: Performed By: #### B MP, CHELO, TRIG, VNCR, CDP, MG ####[address] [address])[phone] Director: Ramiro Mark MD MCHC (RBC) [Mass/Vol] 32.9 g/dL Normal 28.4-34.8 [facility] Comment on above: Performed By: #### B MP, CHELO, TRIG, VNCR, CDP, MG ####[address] [phone] Director: Ramiro Mark MD MCV (RBC) [Entitic vol] 89.2 fL Normal 82.6-102.9 [facility] Comment on above: Performed By: #### B MP, CHELO, TRIG, VNCR, CDP, MG ####[address] [address] Lab Director: Ramiro Mark MD NRBC Automated 0.0 per 100 WBC Normal 0.0 [facility] Comment on above: Performed By: #### B MP, CHELO, TRIG, VNCR, CDP, MG ####[address] [address] Lab Director: Ramiro Mark MD Platelet mean volume (Bld) [Entitic vol] 10.3 fL Normal 8.1-13.5 [facility] Comment on above: Performed By: #### B MP, CHELO, TRIG, VNCR, CDP, MG ####[facility] [address] [place], [place] [phone] Director: Ramiro Mark MD Platelets (Bld) [#/Vol] 158 10*3/uL Normal 138-453 [facility] Comment on above: Performed By: #### B MP, CHELO, TRIG, VNCR, CDP, MG ####[facility] [address] [place], [place] [phone])[phone] Director: Ramiro Mark MD RBC (Bld) [#/Vol] 3.44 10*6/uL Low 4.21-5.77 [facility] Comment on above: Performed By: #### B MP, CHELO, TRIG, VNCR, CDP, MG ####[facility] [address] [place], [place] [phone])[phone] Director: Ramiro Mark MD WBC (Bld) [#/Vol] 11.1 10*3/uL Normal 3.5-11.3 [facility] Comment on above: Performed By: #### B MP, CHELO, TRIG, VNCR, CDP, MG ####[facility] [address] [place] [address] [phone] Director: Ramiro Mark MD Cult,Urineon 01-20-2024 Cult,Urine Specimen Description .URINE,STRAIGHT CATHETER Culture NO GROWTH Report Status FINAL 01/20/2024 Normal [facility] Comment on above: Performed By: #### U RC ####[facility] [address] [place] [address] [phone] Director: Ramiro Mark MD Culture, Urineon 01-20-2024 Microorganism identified Cx Nom (Unsp spec) NO GROWTH [facility] Specimen Description .URINE,STRAIGHT CATHETER [facility] Cytology, Non-Gynon 01-20-20 [facility] Extubationon 01-20-2024 [facility] ExtubationOrdered By: Linda Lopez on 01-20-2024 [facility] XL Group Glucose (POC)on 01-20-2024 Glucose [Mass/Vol] 185 mg/dL High 74-100 [facility] Glucose,Whole Bloodon 2023 Glucose [Mass/Vol] 206 mg/dL High 75-110 [facility] Glucose [Mass/Vol] 236 mg/dL High 75-110 [facility] Glucose [Mass/Vol] 228 mg/dL High 75-110 [facility] Glucose [Mass/Vol] 147 mg/dL High 75-110 [facility] Glucose [Mass/Vol] 133 mg/dL High 75-110 [facility] Glucose [Mass/Vol] 179 mg/dL High 75-110 [facility] Glucose [Mass/Vol] 205 mg/dL High 75-110 [facility] Glucose [Mass/Vol] 177 mg/dL High 75-110 [facility] Glucose [Mass/Vol] 167 mg/dL High 75-110 [facility] Glucose [Mass/Vol] 187 mg/dL High 75-110 [facility] Glucose [Mass/Vol] 187 mg/dL High 75-110 [facility] Glucose [Mass/Vol] 172 mg/dL High 75-110 [facility] Glucose [Mass/Vol] 156 mg/dL High 75-110 [facility] Glucose [Mass/Vol] 122 mg/dL High 75-110 [facility] Glucose [Mass/Vol] 96 mg/dL Normal 75-110 [facility] Guidance for puncture of Lum bar spineon 01-20-2024 MHPN RIS CONSOLIDATED MHPN RIS CONSOLIDATED [facility] Guidance for puncture of Lum bar spineOrdered By: Felix Dai on 01-20-2024 [facility] Work Phone: IR LUMBAR PUNCTURE FOR DIAGN OSISon 01-20-2024 IR LUMBAR PUNCTURE FOR DIAGNOSIS Normal [facility] Lactic Acidon 01-20-2024 Lactic Acid, Whole Blood 1.7 mmol/L 0.7 - 2.1 mmol/L [facility] Lactic Acid,Whole Bl 1.7 mmol/L Normal 0.7-2.1 [facility] Comment on above: Performed By: #### L ACTIC ####[facility] [address] [place], [place] [id number] lab Director: Ramiro Mark MD Lactic Acid, Whole Blood 1.3 mmol/L 0.7 - 2.1 mmol/L [facility] Lactic Acid,Whole Bl 1.3 mmol/L Normal 0.7-2.1 [facility] Comment on above: Performed By: #### L ACTIC, CHELO, MG, BMP ####[facility] [address] [place], [place] [phone] lab Director: Ramiro Mark MD Lactic Acid, Whole Blood 1.2 mmol/L 0.7 - 2.1 mmol/L [facility] Lactic Acid,Whole Bl 1.2 mmol/L Normal 0.7-2.1 [facility] Comment on above: Performed By: #### P HO, LACTIC, BMP, MG ####[facility] [address] [place], [place] [id number] Lab Director: Ramiro Mark MD Magnesiumon 01-20-2024 Magnesium [Mass/Vol] 1.8 mg/dL 1.6 - 2 .6 mg/dL [facility] Magnesium [Mass/Vol] 1.8 mg/dL Normal 1.6-2.6 [facility] Comment on above: Performed By: #### B MP, CHELO, MG ####[facility] [address] [place], [place] [phone] lab Director: Ramiro Mark MD Magnesium [Mass/Vol] 1.9 mg/dL 1.6 - 2 .6 mg/dL [facility] Magnesium [Mass/Vol] 1.9 mg/dL Normal 1.6-2.6 [facility] Comment on above: Performed By: #### B MP, MG, CHELO ####[facility] [address] [place] [id number] lab Director: Ramiro Mark MD Magnesium [Mass/Vol] 1.9 mg/dL 1.6 - 2 .6 mg/dL [facility] Magnesium [Mass/Vol] 1.9 mg/dL Normal 1.6-2.6 [facility] Comment on above: Performed By: #### L ACTIC, CHELO, MG, BMP ####[facility] [address] [place] [phone] lab Director: Ramiro Mark MD Magnesium [Mass/Vol] 2.0 mg/dL 1.6 - 2 .6 mg/dL [facility] Magnesium [Mass/Vol] 2.0 mg/dL Normal 1.6-2.6 [facility] Comment on above: Performed By: #### B MP, CHELO, TRIG, VNCR, CDP, MG ####[facility] [address] [place] [id number] lab Director: Ramiro Mark MD Magnesium [Mass/Vol] 2.0 mg/dL 1.6 - 2 .6 mg/dL [facility] Magnesium [Mass/Vol] 2.0 mg/dL Normal 1.6-2.6 [facility] Comment on above: Performed By: #### P HO, LACTIC, BMP, MG ####[facility] [address] [place] [id number] lab Director: Ramiro Mark MD No Panel Informationon 01-19 Interpretation and review of laboratory results Abnormal [facility] Interpretation and review of laboratory results Abnormal [facility] Interpretation and review of laboratory results Abnormal [facility] Non-Torch Heater Cytologyon Case No: [id number] Normal [facility] Comment on above: Performed By: #### N EPIC ANESTHESIA ANALYST ####[facility] [address] [place] [address] [facility] Director: Ramiro Mark MD POC Glucose Fingerstickon Glucose [Mass/Vol] 206 mg/dL High 75 - 110 mg/dL [facility] Interpretation and review of laboratory results Abnormal [facility] Glucose [Mass/Vol] 236 mg/dL High 75 - 110 mg/dL [facility] Interpretation and review of laboratory results Abnormal [facility] [employer] [facility] Glucose [Mass/Vol] 228 mg/dL High 75 - 110 mg/dL [facility] Interpretation and review of laboratory results Abnormal [facility] Glucose [Mass/Vol] 147 mg/dL High 75 - 110 mg/dL [facility] Interpretation and review of laboratory results Abnormal [facility] Glucose [Mass/Vol] 133 mg/dL High 75 - 110 mg/dL [facility] Interpretation and review of laboratory results Abnormal [facility] Glucose [Mass/Vol] 179 mg/dL High 75 - 110 mg/dL [facility] Interpretation and review of laboratory results Abnormal [facility] Glucose [Mass/Vol] 205 mg/dL High 75 - 110 mg/dL [facility] Interpretation and review of laboratory results Abnormal [facility] Glucose [Mass/Vol] 177 mg/dL High 75 - 110 mg/dL [facility] Interpretation and review of laboratory results Abnormal [facility] Glucose [Mass/Vol] 167 mg/dL High 75 - 110 mg/dL [facility] [employer] [facility] Interpretation and review of laboratory results Abnormal [facility] Glucose [Mass/Vol] 187 mg/dL High 75 - 110 mg/dL [facility] Interpretation and review of laboratory results Abnormal [facility] Glucose [Mass/Vol] 187 mg/dL High 75 - 110 mg/dL [facility] Interpretation and review of laboratory results Abnormal [facility] Glucose [Mass/Vol] 172 mg/dL High 75 - 110 mg/dL [facility] Interpretation and review of laboratory results Abnormal [facility] Glucose [Mass/Vol] 156 mg/dL High 75 - 110 mg/dL [facility] Interpretation and review of laboratory results Abnormal [facility] Glucose [Mass/Vol] 122 mg/dL High 75 - 110 mg/dL [facility] Interpretation and review of laboratory results Abnormal [facility] Glucose [Mass/Vol] 96 mg/dL 75 - 110 mg/dL [facility] POCT Glucoseon 01-20-2024 Glucose [Mass/Vol] 185 mg/dL High 74 - 100 mg/dL [facility] Phosphoruson 01-20-2024 Phosphate [Mass/Vol] 1.9 mg/dL Low 2.5 - 4 .5 mg/dL [facility] Phosphate [Mass/Vol] 2.4 mg/dL Low 2.5 - 4 .5 mg/dL [facility] Phosphate [Mass/Vol] 3.3 mg/dL 2.5 - 4 .5 mg/dL [facility] Phosphate [Mass/Vol] 3.9 mg/dL 2.5 - 4 .5 mg/dL [facility] Phosphate [Mass/Vol] 3.9 mg/dL 2.5 - 4 .5 mg/dL [facility] Phosphorus, Inorg.on 024 Phosphorus, Inorg. 1.9 mg/dL Low 2.5-4.5 [facility] Comment on above: Performed By: #### B MP, CHELO, MG ####[facility] [place] [address] Lab Director: Ramiro Mark MD Phosphorus, Inorg. 2.4 mg/dL Low 2.5-4.5 [facility] Comment on above: Performed By: #### B MP, MG, CHELO ####[facility] [address] [place] [address] Lab Director: Ramiro Mark MD Phosphorus, Inorg. 3.3 mg/dL Normal 2.5-4.5 [facility] Comment on above: Performed By: #### L ACTIC, CHELO, MG, BMP ####[facility] [address] [place] [address] Lab Director: Ramiro Mark MD Phosphorus, Inorg. 3.9 mg/dL Normal 2.5-4.5 [facility] Comment on above: Performed By: #### B MP, CHELO, TRIG, VNCR, CDP, MG ####[facility] [address] [place] [address] Lab Director: Ramiro Mark MD Phosphorus, Inorg. 3.9 mg/dL Normal 2.5-4.5 [facility] Comment on above: Performed By: #### P HO, LACTIC, BMP, MG ####[facility] [address] [place] [address] Lab Director: Ramiro Mark MD SURGICAL PATHOLOGY REPORTon 01-20-2024 Surgical Pathology Report [facility] Triglycerideon 01-20-2024 Triglyceride [Mass/Vol] 62 mg/dL NINF - 150 mg/dL [facility] Triglycerideson 01-20-2024 Triglyceride [Mass/Vol] 62 mg/dL Normal <150 [facility] Comment on above: Result Comment: Trig lyceride Guidelines: <150 Desirable 150- 199 Borderline 200-499 High >499 Very high Based on AHA Guidelines for fasting triglyceride, July 2012. Performed By: #### B MP, CHELO, TRIG, VNCR, CDP, MG ####[facility] [address] [place] [address] [id number] Lab Director: Ramiro Mark MD VDRL CSFon 01-20-2024 Reagin Ab VDRL Ql (CSF) Non-Reactive NONREACTIVE [facility] VDRL, Qual, CSFon 01-20-2024 VDRL, Qual, CSF Non-Reactive Normal NR [facility] Comment on above: Performed By: #### C FCNT, MEVP, CFVD, CGLU, CTP ####[address] [phone] Lab Director: Ramiro Mark MD#### ABHINAVCT, AWNCSF ####[facility] [address] [place] [address] Lab Director: Wil Swanson MD Vancomycin Level, Randomon 0 01-20-2024 Vancomycin [Mass/Vol] 18.9 ug/mL 5.0 - 40.0 ug/mL [facility] Vancomycin,Randomon 01-20-20 24 Vancomycin 18.9 ug/mL Normal 5.0-40.0 [facility] Comment on above: Result Comment: High er trough serum vancomycin concentrations of 15-20 ug/mL are recommended for complicated infections such as bacteremia, endocarditis, osteomyelitis, meningitis, and hospital acquired pneumonia. Performed By: #### B MP, CHELO, TRIG, VNCR, CDP, MG ####[address] [address] Lab Director: Ramiro Mark MD APTTon 01-19-2024 aPTT Coag (Bld) [Time] 23.4 s [facility] aPTT Coag (Bld) [Time] 23.4 s Normal 23.0-36.5 [facility] Comment on above: Result Comment: IV H eparin Therapy Range:66.0-92.0 sec Performed By: #### B MP, PRCAL, PT, MG, CHELO, PTT ####[facility] [address] [place] [address] lab Director: Ramiro Mark MD Ammoniaon 01-19-2024 Ammonia (P) [Moles/Vol] 32 umol/L 16 - 60 umol/L [facility] Ammonia (P) [Moles/Vol] 32 umol/L Normal 16-60 [facility] Comment on above: Result Comment: Spec imen lipemia has exceeded the interference as defined by Jaime. Results may be affected. Performed By: #### A MON, TSHX ####[facility] [address] [place] [address] lab Director: Ramiro Mark MD Arterial Bld Gas,POCon 01-18 Jody Test Positive Normal [facility] FIO2 30.0 Normal [facility] HCO3 (Bld) [Moles/Vol] 23.9 mmol/L Normal 21.0-28.0 M [facility] Mode of Delivery PRVC Normal [facility] Negative Base Excess (calc) 0.9 mmol/L Normal 0.0-2.0 [facility] Oxygen saturation in Blood 98.8 % High 94.0-98.0 [facility] pCO2, Arterial 38.9 mm Hg Normal 35.0-48.0 [facility] pH, Arterial 7.395 Normal 7.350-7.450 [facility] pO2, Arterial 124.3 mm Hg High 83.0-108.0 [facility] Site Drawn Right Radial Artery Normal [facility] Jody Test Positive Normal [facility] FIO2 28.0 Normal [facility] HCO3 (Bld) [Moles/Vol] 24.1 mmol/L Normal 21.0-28.0 [facility] O2 Device Cannula Normal [facility] Oxygen saturation in Blood 95.5 % Normal 94.0-98.0 [facility] pCO2, Arterial 35.5 mm Hg Normal 35.0-48.0 [facility] pH, Arterial 7.439 Normal 7.350-7.450 [facility] pO2, Arterial 74.9 mm Hg Low 83.0-108.0 [facility] Positive Base Excess (calc) 0.2 mmol/L Normal 0.0-3.0 [facility] Site Drawn Right Radial Artery Normal [facility] Arterial Blood Gas, POCon Jody Test Positive [facility] FIO2 30.0 [facility] HCO3 (Bld) [Moles/Vol] 23.9 mmol/L 21.0 - 28.0 mmol/L [facility] XL Group Mode PRVC [facility] Negative Base Excess, Art 0.9 mmol/L 0.0 - 2.0 mmol/L [facility] Oxygen saturation in Blood 98.8 % High 94.0 - 98.0 % [facility] POC pCO2 38.9 [facility] POC pH 7.395 7.350 - 7.450 [facility] POC PO2 124.3 High [facility] Sample Site Right Radial Artery [facility] Jody Test Positive [facility] FIO2 28.0 [facility] HCO3 (Bld) [Moles/Vol] 24.1 mmol/L 21.0 - 28.0 mmol/L [facility] Interpretation and review of laboratory results Abnormal [facility] O2 Delivery Device Cannula [facility] Oxygen saturation in Blood 95.5 % 94.0 - 98.0 % [facility] POC pCO2 35.5 [facility] POC pH 7.439 7.350 - 7.450 [facility] POC PO2 74.9 Low [facility] Positive Base Excess, Art 0.2 mmol/L 0.0 - 3.0 mmol/L [facility] Sample Site Right Radial Artery [facility] XL Group Basic Metab w/rfx MGon 01-18 Anion gap [Moles/Vol] 22 mmol/L High 9-16 [facility] Comment on above: Performed By: #### C DP, CK, MARCIO, TROPI, BMPX, GLYHGB, BH, SED, ALCB, CRP ####[facility] [address] [place] [id number] Lab Director: Ramiro Mark MD Calcium [Mass/Vol] 9.0 mg/dL Normal 8.6-10.4 [facility] Comment on above: Performed By: #### C DP, CK, MARCIO, TROPI, BMPX, GLYHGB, BH, SED, ALCB, CRP ####[facility] [address] [place] [phone] Director: Ramiro Mark MD Chloride [Moles/Vol] 94 mmol/L Low 98-107 [facility] Comment on above: Performed By: #### C DP, CK, MARCIO, TROPI, BMPX, GLYHGB, BH, SED, ALCB, CRP ####[facility] [address] [place] [address] Lab Director: Ramiro Mark MD CO2 [Moles/Vol] 15 mmol/L Low 20-31 [facility] Comment on above: Performed By: #### C DP, CK, MARCIO, TROPI, BMPX, GLYHGB, BH, SED, ALCB, CRP ####[address] [address] Lab Director: Ramiro Mark MD Creatinine [Mass/Vol] 1.7 mg/dL High 0.70-1.20 [facility] Comment on above: Performed By: #### C DP, CK, MARCIO, TROPI, BMPX, GLYHGB, BH, SED, ALCB, CRP ####[facility] [address] [place] [address] Lab Director: Ramiro Mark MD GFR/1.73 sq M.predicted among non-blacks MDRD (S/P/Bld) [Vol rate/Area] 48 mL/min/{1.73_m2} Low >60 [facility] Comment on above: Result Comment: Thes e [...] tubular secretion. Performed By: #### C DP, CK, MARCIO, TROPI, BMPX, GLYHGB, BH, SED, ALCB, CRP ####[place] [address] Lab Director: Ramiro Mark MD Glucose [Mass/Vol] 530 mg/dL Critically high 74-99 [facility] Comment on above: Performed By: #### C DP, CK, MARCIO, TROPI, BMPX, GLYHGB, BH, SED, ALCB, CRP ####[place] [address] Lab Director: Ramiro Mark MD Potassium [Moles/Vol] 5.6 mmol/L High 3.7-5.3 [facility] Comment on above: Performed By: #### C DP, CK, MARCIO, TROPI, BMPX, GLYHGB, BH, SED, ALCB, CRP ####[place] [address] Lab Director: Ramiro Mark MD Sodium [Moles/Vol] 131 mmol/L Low 136-145 [facility] Comment on above: Performed By: #### C DP, CK, MARCIO, TROPI, BMPX, GLYHGB, BH, SED, ALCB, CRP ####[place] [address] Lab Director: Ramiro Mark MD Urea nitrogen [Mass/Vol] 47 mg/dL High 6-20 [facility] Comment on above: Performed By: #### C DP, CK, MARCIO, TROPI, BMPX, GLYHGB, BH, SED, ALCB, CRP ####[facility] [address] [place] [address] [facility] Director: Ramiro Mark MD Basic Metabolic Panelon -0 Anion gap [Moles/Vol] 12 mmol/L 9 - 16 mmol/L [facility] [employer] Calcium [Mass/Vol] 8.2 mg/dL Low 8.6 - 10. 4 mg/dL [facility] [employer] Chloride [Moles/Vol] 105 mmol/L 98 - 10 7 mmol/L [facility] CO2 [Moles/Vol] 20 mmol/L 20 - 31 mmol/L [facility] [employer] Creatinine [Mass/Vol] 1.5 mg/dL High 0.70 - 1.20 mg/dL [facility] GFR/1.73 sq M.predicted MDRD (S/P/Bld) [Vol rate/Area] 55 mL/min/{1.73_m2} Low - PINF [facility] [employer] Glucose [Mass/Vol] 257 mg/dL High 74 - 99 mg/dL [facility] Interpretation and review of laboratory results Abnormal [facility] [employer] Potassium [Moles/Vol] 3.8 mmol/L 3.7 - 5.3 mmol/L [facility] Sodium [Moles/Vol] 137 mmol/L 136 - 145 mmol/L [facility] [employer] Urea nitrogen [Mass/Vol] 41 mg/dL High 6 - 20 mg/dL [facility] Anion gap [Moles/Vol] 10 mmol/L 9 - 16 mmol/L [facility] [employer] Calcium [Mass/Vol] 8.2 mg/dL Low 8.6 - 10. 4 mg/dL [facility] [employer] Chloride [Moles/Vol] 105 mmol/L 98 - 10 7 mmol/L [facility] [employer] CO2 [Moles/Vol] 22 mmol/L 20 - 31 mmol/L [facility] [employer] Creatinine [Mass/Vol] 1.6 mg/dL High 0.70 - 1.20 mg/dL [facility] [employer] GFR/1.73 sq M.predicted MDRD (S/P/Bld) [Vol rate/Area] 51 mL/min/{1.73_m2} Low - PINF [facility] Glucose [Mass/Vol] 208 mg/dL High 74 - 99 mg/dL [facility] Interpretation and review of laboratory results Abnormal [facility] Potassium [Moles/Vol] 4.4 mmol/L 3.7 - 5.3 mmol/L [facility] Sodium [Moles/Vol] 137 mmol/L 136 - 145 mmol/L [facility] Urea nitrogen [Mass/Vol] 42 mg/dL High 6 - 20 mg/dL [facility] Basic Metabolic Panel w/ Ref jose to MGon 01-19-2024 Anion gap [Moles/Vol] 22 mmol/L High 9 - 16 mmol/L [facility] Calcium [Mass/Vol] 9.0 mg/dL 8.6 - 10. 4 mg/dL [facility] Chloride [Moles/Vol] 94 mmol/L Low 98 - 10 7 mmol/L [facility] CO2 [Moles/Vol] 15 mmol/L Low 20 - 31 mmol/L [facility] Creatinine [Mass/Vol] 1.7 mg/dL High 0.70 - 1.20 mg/dL [facility] [employer] GFR/1.73 sq M.predicted MDRD (S/P/Bld) [Vol rate/Area] 48 mL/min/{1.73_m2} Low - PINF [facility] Glucose [Mass/Vol] 530 mg/dL Critically high 74 - 9 9 mg/dL [facility] Interpretation and review of laboratory results Abnormal [facility] [employer] Potassium [Moles/Vol] 5.6 mmol/L High 3.7 - 5.3 mmol/L [facility] Sodium [Moles/Vol] 131 mmol/L Low 136 - 145 mmol/L [facility] Urea nitrogen [Mass/Vol] 47 mg/dL High 6 - 20 mg/dL [facility] [employer] [facility] Basic Metabolic Profon 01-18 Anion gap [Moles/Vol] 12 mmol/L Normal 9-16 [facility] Comment on above: Performed By: #### B MP, CHELO, MG ####[facility] [address] [place] [address] Lab Director: Ramiro Mark MD Calcium [Mass/Vol] 8.2 mg/dL Low 8.6-10.4 [facility] Comment on above: Performed By: #### B MP, CHELO, MG ####[facility] [address] [place], [place] [address])[phone] Director: Ramiro Mark MD Chloride [Moles/Vol] 105 mmol/L Normal 98-107 [facility] Comment on above: Performed By: #### B MP, CHELO, MG ####[facility] [address] [place], [place] [address])[phone] Director: Ramiro Mark MD CO2 [Moles/Vol] 20 mmol/L Normal 20-31 [facility] Comment on above: Performed By: #### B MP, CHELO, MG ####[facility] [address] [place], [place] [phone] Director: Ramiro Mark MD Creatinine [Mass/Vol] 1.5 mg/dL High 0.70-1.20 [facility] Comment on above: Performed By: #### B MP, CHELO, MG ####[address] [address])[phone] Director: Ramiro Mark MD GFR/1.73 sq M.predicted among non-blacks MDRD (S/P/Bld) [Vol rate/Area] 55 mL/min/{1.73_m2} Low >60 [facility] Comment on above: Result Comment: Thes e [...] tubular secretion. Performed By: #### B MP, CHELO, MG ####[facility] [address] [place], [place] [address])[phone] Director: Ramiro Mark MD Glucose [Mass/Vol] 257 mg/dL High 74-99 [facility] Comment on above: Performed By: #### B MP, CHELO, MG ####[facility] [address] [place], [place] [address])[phone] Director: Ramiro Mark MD Potassium [Moles/Vol] 3.8 mmol/L Normal 3.7-5.3 [facility] Comment on above: Performed By: #### B MP, CHELO, MG ####[facility] [address] [place], [place] [address])[phone] Director: Ramiro Mark MD Sodium [Moles/Vol] 137 mmol/L Normal 136-145 [facility] Comment on above: Performed By: #### B MP, CHELO, MG ####[facility] [address] [place], [place] [address])[phone] Director: Ramiro Mark MD Urea nitrogen [Mass/Vol] 41 mg/dL High 6-20 [facility] Comment on above: Performed By: #### B MP, CHELO, MG ####[facility] [address] [place], [place] [address])[phone] Director: Ramiro Mark MD Anion gap [Moles/Vol] 10 mmol/L Normal 9-16 [facility] Comment on above: Performed By: #### B MP, PRCAL, PT, MG, CHELO, PTT ####[facility] [address] [place], [place] [address])[phone] Director: Ramiro Mark MD Calcium [Mass/Vol] 8.2 mg/dL Low 8.6-10.4 [facility] Comment on above: Performed By: #### B MP, PRCAL, PT, MG, CHELO, PTT ####[facility] [address] [place] [address] Lab Director: Ramiro Mark MD Chloride [Moles/Vol] 105 mmol/L Normal 98-107 [facility] Comment on above: Performed By: #### B MP, PRCAL, PT, MG, CHELO, PTT ####[facility] [address] [place] [address] Lab Director: Ramiro Mark MD CO2 [Moles/Vol] 22 mmol/L Normal 20-31 [facility] Comment on above: Performed By: #### B MP, PRCAL, PT, MG, CHELO, PTT ####[address] [address])[phone] Director: Ramiro Mark MD Creatinine [Mass/Vol] 1.6 mg/dL High 0.70-1.20 [facility] Comment on above: Performed By: #### B MP, PRCAL, PT, MG, CHLEO, PTT ####[address] [address])[phone] Director: Ramiro Mark MD GFR/1.73 sq M.predicted among non-blacks MDRD (S/P/Bld) [Vol rate/Area] 51 mL/min/{1.73_m2} Low >60 [facility] Comment on above: Result Comment: Thes e [...] tubular secretion. Performed By: #### B MP, PRCAL, PT, MG, CHELO, PTT ####[facility] [address] [place] [address] Lab Director: Ramiro Mark MD Glucose [Mass/Vol] 208 mg/dL High 74-99 [facility] Comment on above: Performed By: #### B MP, PRCAL, PT, MG, CHELO, PTT ####[facility] [address] [place] [address] Lab Director: Ramiro Mark MD Potassium [Moles/Vol] 4.4 mmol/L Normal 3.7-5.3 [facility] Comment on above: Result Comment: SPEC IMEN SLIGHTLY HEMOLYZED, RESULTS MAY BE ADVERSELY AFFECTED. Performed By: #### B MP, PRCAL, PT, MG, CHELO, PTT ####[facility] [address] [place] [address])[phone] Director: Ramiro Mark MD Sodium [Moles/Vol] 137 mmol/L Normal 136-145 [facility] Comment on above: Performed By: #### B MP, PRCAL, PT, MG, CHELO, PTT ####[facility] [address] [place] [address] Lab Director: Ramiro Mark MD Urea nitrogen [Mass/Vol] 42 mg/dL High 6-20 [facility] Comment on above: Performed By: #### B MP, PRCAL, PT, MG, CHELO, PTT ####[facility] [address] [place] [address] Lab Director: Ramiro Mark MD Beta Hydroxybutyrateon 01-18 Beta Hydroxybutyrate 3.37 mmol/L High 0.02-0.27 [facility] Comment on above: Performed By: #### C DP, CK, MARCIO, TROPI, BMPX, GLYHGB, BH, SED, ALCB, CRP ####[facility] [address] [place] [address] Lab Director: Ramiro Mark MD Beta-Hydroxybutyrateon 01-18 Beta hydroxybutyrate [Mass/Vol] 3.37 mmol/L High 0.02 - 0.27 mmol/L [facility] C-Reactive Proteinon 024 CRP High sensitivity method [Mass/Vol] 3.7 mg/L 0.0 - 5.0 mg/L [facility] CRP [Mass/Vol] 3.7 mg/L Normal 0.0-5.0 [facility] Comment on above: Performed By: #### C DP, CK, MARCIO, TROPI, BMPX, GLYHGB, BH, SED, ALCB, CRP ####[facility] [address] [place] [address] lab Director: Ramiro Mark MD CBC with Auto Differentialon 01-19-2024 Basophils (Bld) [#/Vol] 0.08 10*3/uL [facility] Basophils/100 WBC (Bld) 1 % 0 - 2 % [facility] Eosinophils (Bld) [#/Vol] 0.03 10*3/uL [facility] Eosinophils/100 WBC (Bld) 0 % Low 1 - 4 % [facility] Erythrocyte distribution width (RBC) [Ratio] 13.6 % 11.8 - 14.4 % [facility] Hematocrit (Bld) [Volume fraction] 37.2 % Low 40.7 - 50.3 % [facility] Hemoglobin (Bld) [Mass/Vol] 12.9 g/dL Low 13.0 - 17.0 g/dL [facility] Immature granulocytes (Bld) [#/Vol] 0.07 10*3/uL [facility] Immature granulocytes/100 WBC (Bld) 1 % High 0 [facility] Interpretation and review of laboratory results Abnormal [facility] Lymphocytes/100 WBC (Bld) 6 % Low 24 - 43 % [facility] Lymphocytes/100 WBC (Bld) 0.77 % Low [facility] MCH (RBC) [Entitic mass] 29.3 pg 25.2 - 33.5 pg [facility] MCHC (RBC) [Mass/Vol] 34.7 g/dL 28.4 - 34.8 g/dL [facility] MCV (RBC) [Entitic vol] 84.4 fL 82.6 - 102.9 fL [facility] Monocytes/100 WBC (Bld) 1 % Low 3 - 12 % [facility] Monocytes/100 WBC (Bld) 0.18 % [facility] Neutrophils/100 WBC (Bld) 91 % High 36 - 65 % [facility] Nucleated RBC/100 WBC (Bld) [Ratio] 0.0 % 0.0 per 100 WBC [facility] Platelet mean volume (Bld) [Entitic vol] 10.9 fL 8.1 - 13.5 fL [facility] Platelets (Bld) [#/Vol] 201 10*3/uL [facility] RBC (Bld) [#/Vol] 4.41 10*6/uL 4.21 - 5.7 7 m/uL [facility] Segmented neutrophils/100 WBC (Bld) 12.03 % High [facility] WBC other (Bld) [#/Vol] 13.2 High [facility] CBC with Diffon 01-19-2024 Abs. Basophil 0.08 k/uL Normal 0.00-0.20 [facility] Comment on above: Performed By: #### C DP, CK, MARCIO, TROPI, BMPX, GLYHGB, BH, SED, ALCB, CRP ####[facility] [address] [place] [address] Lab Director: Ramiro Mark MD Abs.Imm.Granulocyte 0.07 k/uL Normal 0.00-0.30 [facility] Comment on above: Performed By: #### C DP, CK, MARCIO, TROPI, BMPX, GLYHGB, BH, SED, ALCB, CRP ####[facility] [address] [place] [address] Lab Director: Ramiro Mark MD Abs.Neutrophil (Seg) 12.03 k/uL High 1.50-8.10 [facility] Comment on above: Performed By: #### C DP, CK, MARCIO, TROPI, BMPX, GLYHGB, BH, SED, ALCB, CRP ####[place] [address] Lab Director: Ramiro Mark MD Basophils/100 WBC (Bld) 1 % Normal 0-2 [facility] Comment on above: Performed By: #### C DP, CK, MARCIO, TROPI, BMPX, GLYHGB, BH, SED, ALCB, CRP ####[place] [address] Lab Director: Ramiro Mark MD Eosinophils (Bld) [#/Vol] 0.03 10*3/uL Normal 0.00-0.44 [facility] Comment on above: Performed By: #### C DP, CK, MARCIO, TROPI, BMPX, GLYHGB, BH, SED, ALCB, CRP ####[place], [place] [address])[phone] Director: Ramiro Mark MD Eosinophils/100 WBC (Bld) 0 % Low 1-4 [facility] Comment on above: Performed By: #### C DP, CK, MARCIO, TROPI, BMPX, GLYHGB, BH, SED, ALCB, CRP ####[place] [address] Lab Director: Ramiro Mark MD Erythrocyte distribution width (RBC) [Ratio] 13.6 % Normal 11.8-14.4 [facility] Comment on above: Performed By: #### C DP, CK, MARCIO, TROPI, BMPX, GLYHGB, BH, SED, ALCB, CRP ####[place], [place] [address])[phone] Director: Ramiro Mark MD Hematocrit (Bld) [Volume fraction] 37.2 % Low 40.7-50.3 [facility] Comment on above: Performed By: #### C DP, CK, MARCIO, TROPI, BMPX, GLYHGB, BH, SED, ALCB, CRP ####[place], [place] [address])[phone] Director: Ramiro Mark MD Hemoglobin (Bld) [Mass/Vol] 12.9 g/dL Low 13.0-17.0 [facility] Comment on above: Performed By: #### C DP, CK, MARCIO, TROPI, BMPX, GLYHGB, BH, SED, ALCB, CRP ####[place], [place] [address])[phone] Director: Ramiro Mark MD Immature granulocytes/100 WBC (Bld) 1 % High 0 [facility] Comment on above: Performed By: #### C DP, CK, MARCIO, TROPI, BMPX, GLYHGB, BH, SED, ALCB, CRP ####[place], [place] [address])[phone] Director: Ramiro Mark MD Lymphocytes (Bld) [#/Vol] 0.77 10*3/uL Low 1.10-3.70 [facility] Comment on above: Performed By: #### C DP, CK, MARCIO, TROPI, BMPX, GLYHGB, BH, SED, ALCB, CRP ####[place], [place] [address])[phone] Director: Ramiro Mark MD Lymphocytes/100 WBC (Bld) 6 % Low 24-43 [facility] Comment on above: Performed By: #### C DP, CK, MARCIO, TROPI, BMPX, GLYHGB, BH, SED, ALCB, CRP ####[address] [place], [place] [address])[phone] Director: Ramiro Mark MD MCH (RBC) [Entitic mass] 29.3 pg Normal 25.2-33.5 [facility] Comment on above: Performed By: #### C DP, CK, MARCIO, TROPI, BMPX, GLYHGB, BH, SED, ALCB, CRP ####[facility] [address] [place] [address] Lab Director: Ramiro Mark MD MCHC (RBC) [Mass/Vol] 34.7 g/dL Normal 28.4-34.8 [facility] Comment on above: Performed By: #### C DP, CK, MARCIO, TROPI, BMPX, GLYHGB, BH, SED, ALCB, CRP ####[facility] [address] [place], [place] [address])[phone] Director: Ramiro Mark MD MCV (RBC) [Entitic vol] 84.4 fL Normal 82.6-102.9 [facility] Comment on above: Performed By: #### C DP, CK, MARCIO, TROPI, BMPX, GLYHGB, BH, SED, ALCB, CRP ####[place], [place] [address])[phone] Director: Ramiro Mark MD Monocytes (Bld) [#/Vol] 0.18 10*3/uL Normal 0.10-1.20 [facility] Comment on above: Performed By: #### C DP, CK, MARCIO, TROPI, BMPX, GLYHGB, BH, SED, ALCB, CRP ####[address] [place], [place] [address])[phone] Director: Ramiro Mark MD Monocytes/100 WBC (Bld) 1 % Low 3-12 [facility] Comment on above: Performed By: #### C DP, CK, MARCIO, TROPI, BMPX, GLYHGB, BH, SED, ALCB, CRP ####[facility] [address] [place], [place] [address])[phone] Director: Ramiro Mark MD Neutrophil (Seg) 91 % High 36-65 [facility] Comment on above: Performed By: #### C DP, CK, MARCIO, TROPI, BMPX, GLYHGB, BH, SED, ALCB, CRP ####[place], [place] [address])[phone] Director: Ramiro Mark MD NRBC Automated 0.0 per 100 WBC Normal 0.0 [facility] Comment on above: Performed By: #### C DP, CK, MARCIO, TROPI, BMPX, GLYHGB, BH, SED, ALCB, CRP ####[place], [place] [address])[phone] Director: Ramiro Mark MD Platelet mean volume (Bld) [Entitic vol] 10.9 fL Normal 8.1-13.5 [facility] Comment on above: Performed By: #### C DP, CK, MARCIO, TROPI, BMPX, GLYHGB, BH, SED, ALCB, CRP ####[place], [place] [address])[phone] Director: Ramiro Mark MD Platelets (Bld) [#/Vol] 201 10*3/uL Normal 138-453 [facility] Comment on above: Performed By: #### C DP, CK, MARCIO, TROPI, BMPX, GLYHGB, BH, SED, ALCB, CRP ####[place], [place] [address])[phone] Director: Ramiro Mark MD RBC (Bld) [#/Vol] 4.41 10*6/uL Normal 4.21-5.77 [facility] Comment on above: Performed By: #### C DP, CK, MARCIO, TROPI, BMPX, GLYHGB, BH, SED, ALCB, CRP ####[place], [place] [address])[phone] Director: Ramiro Mark MD WBC (Bld) [#/Vol] 13.2 10*3/uL High 3.5-11.3 [facility] Comment on above: Performed By: #### C DP, CK, MARCIO, TROPI, BMPX, GLYHGB, BH, SED, ALCB, CRP ####[facility] [address] [place] [address] Lab Director: Ramiro Mark MD CKon 01-19-2024 CK [Catalytic activity/Vol] 226 U/L 39 - 308 U/L [facility] CSF Cell Counton 01-19-2024 Appearance (U) Clear Normal [facility] Comment on above: Performed By: #### C FCNT, MEVP, CFVD, CGLU, CTP ####[facility] [address] [place] [address] Lab Director: Ramiro Mark MD#### [place] ####[facility] [address] [place] [address] Lab Director: Wil Swanson MD RBC (Bld) [#/Vol] 0 10*6/uL Normal 0 [facility] Comment on above: Performed By: #### C FCNT, MEVP, CFVD, CGLU, CTP ####[facility] [address] [place] [address] Lab Director: Ramiro Mark MD#### [place] ####[facility] [address] [place] [address] Lab Director: Wil Swanson MD Tube Number 3 Normal [facility] Comment on above: Performed By: #### C FCNT, MEVP, CFVD, CGLU, CTP ####[facility] [address] [place] [address] Lab Director: Ramiro Mark MD#### [place] ####[facility] [address] [place] [address] Lab Director: Wil Swanson MD WBC (Bld) [#/Vol] 0 10*3/uL Normal <5 [facility] Comment on above: Performed By: #### C FCNT, MEVP, CFVD, CGLU, CTP ####[facility] [address] [place], [place] [id number] Lab Director: Ramiro Mark MD#### DESHAUN, AWNCSF ####[facility] [address] [place] [address] Lab Director: Wil Swanson MD Xanthochromia ABSENT Normal [facility] Comment on above: Performed By: #### C FCNT, MEVP, CFVD, CGLU, CTP ####[facility] [address] [place] [address] [phone] Lab Director: Ramiro Mark MD#### DESHAUN, AWNCSF ####[facility] [address] [place] [phone] lab Director: Wil Swanson MD Volume 12 mL Normal [facility] Comment on above: Performed By: #### C FCNT, MEVP, CFVD, CGLU, CTP ####[facility] [address] [place] [address] [id number] Lab Director: Ramiro Mark MD#### DESHAUN, AWNCSF ####[facility] [address] [place] [address] lab Director: Wil Swanson MD CT HEAD [...] Ashley Cintron MD 01/19/24 Final result Normal [facility] Calcium, Ionicon 01-19-2024 Calcium [Moles/Vol] 1.13 mmol/L Normal 1.13-1.33 [facility] Comment on above: Performed By: #### I OCAL ####[facility] [address] [place] [address] lab Director: Ramiro Mark MD Calcium, Ionizedon Calcium.ionized (Bld) [Moles/Vol] 1.13 mmol/L 1.13 - 1.33 mmol/L [facility] Cell Count with Differential , CSFon 01-19-2024 Appearance (CSF) Clear [facility] Nucleated cells Manual cnt (Body fld) [#/Vol] 0 NINF [facility] RBC Manual cnt (Body fld) [#/Vol] 0 0 cells/uL [facility] Specimen volume (CSF) 12 mL [facility] Tube number Nom (CSF) [ID] 3 [facility] Xanthochromia Ql (CSF) ABSENT TRIP N [facility] Creatine Kinaseon 01-19-2024 CK [Catalytic activity/Vol] 226 U/L Normal 39-308 [facility] Comment on above: Performed By: #### C DP, CK, MARCIO, TROPI, BMPX, GLYHGB, BH, SED, ALCB, CRP ####[facility] Hospital[facility] Systems [id number] [place], [place] [id number] Lab Director: Ramiro Mark MD DRUG SCREEN MULTI URINEon Amphetamines Ql (U) Negative NEGATIVE [facility] Barbiturates Screen Ql (U) Negative [facility]GATIVE [facility] Benzodiazepines Ql (U) Negative [facility]IVE [facility] Cannabinoids Screen Ql (U) Negative NEGATIVE [facility] Cocaine Ql (U) Negative NEGATIVE [facility] fentaNYL Ql (U) Negative NEGATIVE [facility] Methadone Ql (U) Negative NEGATIVE [facility] Opiates Screen Ql (U) Negative [facility]IVE [facility] oxyCODONE Ql (U) Negative NEGATIVE [facility] Phencyclidine Ql (U) Negative NEGATIVE [facility] Test Information Assay provides rapid clinical screening only. Presumptive positive results for legal purposes should be confirmed by another method. To request confirmation, please call the lab within 7 days of sample submission. [facility] Drug Scr, Abuse, Uron 2023 Amphetamine(s),Ur Negative Normal NEG [facility] Comment on above: Result Comment: Cuto ff: 1000 ng/mL Performed By: #### D AU ####[facility] HospitalPacer [id number] [place], [place] [id number] Lab Director: Ramiro Mark MD Barbiturate(s),Ur Negative Normal [facility]G [facility] [facility] Comment on above: Result Comment: Cuto ff: 200 ng/ml Performed By: #### D AU ####[facility] HospitalPacer ElectronicsFxxfmgvnrrmz0389 [place], [place] [phone] Lab Director: Ramiro Mark MD Benzodiazepine(s) Negative Normal NEG [facility] Comment on above: Result Comment: Cuto ff: 200 ng/ml Performed By: #### D AU ####[address] [phone] Director: Ramiro Mark MD Cannabinoid(s),Ur Negative Normal NEG [facility] Comment on above: Result Comment: Cuto ff: 50 ng/ml Performed By: #### D AU ####[address] [phone] Director: Ramiro Mark MD Cocaine Metabolite Negative Normal NEG [facility] Comment on above: Result Comment: Cuto ff: 300 ng/ml Performed By: #### D AU ####[address] [phone] Director: Ramiro Mark MD Fentanyl, Urine Negative Normal NEG [facility] Comment on above: Result Comment: Cuto ff: 5 ng/ml Performed By: #### D AU ####[address] [address] Lab Director: Ramiro Mark MD Interpretive Info Assay provides rapid clinical screening only. Presumptive positive results for Normal [facility] Comment on above: Result Comment: lega l purposes should be confirmed by another method. To request confirmation, please call the lab within 7 days of sample submission. Performed By: #### D AU ####[address] [phone] Director: Ramiro Mark MD Methadone Ql (U) Negative Normal NEG [facility] Comment on above: Result Comment: Cuto ff: 300 ng/ml Performed By: #### D AU ####[address] [phone] Director: Ramiro Mark MD Opiate(s), Ur Negative Normal NEG [facility] Comment on above: Result Comment: Cuto ff: 300 ng/ml Performed By: #### D AU ####[facility] [address] [place] [address] Lab Director: Ramiro Mark MD Oxycodone, Urine Negative Normal NEG [facility] Comment on above: Result Comment: Cuto ff: 100 ng/ml Performed By: #### D AU ####[address] [place] [address] Lab Director: Ramiro Mark MD Phencyclidine, Ur Negative Normal NEG [facility] Comment on above: Result Comment: Cuto ff: 25 ng/ml Performed By: #### D AU ####[address] [address] lab Director: Ramiro Mark MD Ethanolon 01-19-2024 Ethanol percent <0.010 NINF - 0.010 % [facility] Ethanolamine [Mass/Vol] mg/dL NINF - 10 mg/dL [facility] Ethanol Alcoholon 01-19-2024 Ethanol [Mass/Vol] mg/dL Normal <10 [facility] Comment on above: Performed By: #### C DP, CK, MARCIO, TROPI, BMPX, GLYHGB, BH, SED, ALCB, CRP ####[facility] [address] [place], [place] [phone] Lab Director: Ramiro Mark MD Ethanol percent <0.010 Normal <0.010 [facility] Comment on above: Performed By: #### C DP, CK, MARCIO, TROPI, BMPX, GLYHGB, BH, SED, ALCB, CRP ####[address] [place] [address] Lab Director: Ramiro Mark MD Glucose (POC)on 01-19-2024 Glucose [Mass/Vol] 199 mg/dL High 74-100 [facility] Glucose CSFon 01-19-2024 Glucose (CSF) [Mass/Vol] 194 mg/dL High 40 - 70 mg/dL [facility] Glucose,CSFon 01-19-2024 Glucose [Mass/Vol] 194 mg/dL High 40-70 [facility] Comment on above: Performed By: #### C FCNT, MEVP, CFVD, CGLU, CTP ####[facility] [address] [place] [address] Lab Director: Ramiro Mark MD#### ALYMCT, AWNCSF ####[facility] [address] [place] [address] Lab Director: Wil Swanson MD Glucose,Whole Bloodon 2023 Glucose [Mass/Vol] 77 mg/dL Normal 75-110 [facility] Glucose [Mass/Vol] 111 mg/dL High 75-110 [facility] Glucose [Mass/Vol] 179 mg/dL High 75-110 [facility] Glucose [Mass/Vol] 257 mg/dL High 75-110 [facility] Glucose [Mass/Vol] 255 mg/dL High 75-110 [facility] Glucose [Mass/Vol] 235 mg/dL High 75-110 [facility] Glucose [Mass/Vol] 178 mg/dL High 75-110 [facility] Glucose [Mass/Vol] 190 mg/dL High 75-110 [facility] Glucose [Mass/Vol] 235 mg/dL High 75-110 [facility] Glucose [Mass/Vol] 269 mg/dL High 75-110 [facility] Glucose [Mass/Vol] 303 mg/dL High 75-110 [facility] Glucose [Mass/Vol] 297 mg/dL High 75-110 [facility] Glucose [Mass/Vol] 496 mg/dL Critically high 75-110 [facility] Glucose [Mass/Vol] 375 mg/dL High 75-110 [facility] Glucose [Mass/Vol] 548 mg/dL Critically high 75-110 [facility] Glucose [Mass/Vol] 506 mg/dL Critically high 75-110 [facility] Comment on above: Result Comment: Martin carvajal Noted Guidance for puncture of Lum bar spineon 01-19-2024 Radiology Study observation (narrative) [facility] HSV DNA, PCRon 01-19-2024 HSV source .CSF Normal [facility] Comment on above: Performed By: #### A HSVPC ####[address] [place] [address] Lab Director: Ramiro Mark MDA[address] [address] Lab Director: Wil Swanson MD Hemoglobin A1Con 01-19-2024 Average glucose Estimated from glycated hemoglobin (Bld) [Mass/Vol] 298 mg/dL [facility] HbA1c (Bld) [Mass fraction] 12.0 % High 4.0 - 6.0 % [facility] Interpretation and review of laboratory results Abnormal [facility] Glucose [Mass/Vol] 298 mg/dL Normal [facility] Comment on above: Result Comment: The ADA and AACC recommend providing the estimated average glucose result to permit better patient understanding of their HBA1c result. Performed By: #### C DP, CK, MARCIO, TROPI, BMPX, GLYHGB, BH, SED, ALCB, CRP ####[address] [place] [address] Lab Director: Ramiro Mark MD HbA1c (Bld) [Mass fraction] 12.0 % High 4.0-6.0 [facility] Comment on above: Performed By: #### C DP, CK, MARCIO, TROPI, BMPX, GLYHGB, BH, SED, ALCB, CRP ####[facility] [address] [place] [address] Lab Director: Ramiro Mark MD Lactic Acidon 01-19-2024 Lactic Acid, Whole Blood 1.2 mmol/L 0.7 - 2.1 mmol/L [facility] Lactic Acid,Whole Bl 1.2 mmol/L Normal 0.7-2.1 [facility] Comment on above: Performed By: #### L ACTIC ####[facility] [address] [place] [address] Lab Director: Ramiro Mark MD Lactate (BldV) [Moles/Vol] 2.2 mmol/L 0.5 - 2.2 mmol/L [facility] Lactate [Moles/Vol] 2.2 mmol/L Normal 0.5-2.2 [facility] Comment on above: Performed By: #### L ACTIC #### [facility] [address] [place] [address] Comparator Operator: Ramiro Santillan MD MR Brain WO and W contrast I Von 01-19-2024 [facility] Radiology Study observation (narrative) [facility] MR Brain WO and W contrast I VOrdered By: Daniel Ramos on 01-19-2024 [facility] Work Phone: MRI BRAIN W WO CONTRASTon MRI BRAIN W WO CONTRAST Normal [facility] MRSA DNA Probe, Nasalon MRSA, DNA, Nasal Negative NEGATIVE [facility] Specimen Description .NASAL SWAB [facility] MRSA, DNA, Nasalon MRSA, DNA, Nasal Negative Normal NEG [facility] Comment on above: Result Comment: NEGA TIVE: MRSA DNA not detected by nucleic acid amplification.Results should be used as an adjunct to nosocomial control efforts to identify patients needing enhanced precautions.The test is not intended to identify patients with staphylococcal infections. Results should not be used to guide or monitor treatment for MRSA infections. Performed By: #### M RSANO ####[facility] HospitalHome Environmental Systems [address] [place], [place] [phone] Lab Director: Ramiro Mark MD Specimen Description .NASAL SWAB Normal [facility] Comment on above: Performed By: #### M RSANO ####[facility] [address] [place], [place] [phone] Lab Director: Ramiro Mark MD Magnesiumon 01-19-2024 Magnesium [Mass/Vol] 2.1 mg/dL 1.6 - 2 .6 mg/dL [facility] Magnesium [Mass/Vol] 2.1 mg/dL Normal 1.6-2.6 [facility] Comment on above: Performed By: #### B MP, CHELO, MG ####[facility] [address] [place], [place] [phone] lab Director: Ramiro Mark MD Magnesium [Mass/Vol] 2.0 mg/dL 1.6 - 2 .6 mg/dL [facility] Magnesium [Mass/Vol] 2.0 mg/dL Normal 1.6-2.6 [facility] Comment on above: Performed By: #### B MP, PRCAL, PT, MG, CHELO, PTT ####[facility] [address] [place] [address] lab Director: Ramiro Mark MD Meningitis Encephalitis Pane l CSF, Molecularon 01-19-2024 C. gattii+neoformans DNA MEETA+non-probe Ql (CSF) Not detected Not Detected [facility] CMV DNA MEETA+non-probe Ql (CSF) Not detected Not Detected [facility] E. coli K1 DNA MEETA+non-probe Ql (CSF) Not detected Not Detected [facility] Enterovirus RNA MEETA+non-probe Ql (CSF) Not detected Not Detected [facility] H. influenzae DNA MEETA+non-probe Ql (CSF) Not detected Not Detected [facility] HHV 6 DNA MEETA+non-probe Ql (CSF) Not detected Not Detected [facility] HSV 1 DNA MEETA+non-probe Ql (CSF) Not detected Not Detected [facility] HSV 2 DNA MEETA+non-probe Ql (CSF) Not detected Not Detected [facility] L. monocytogenes DNA MEETA+non-probe Ql (CSF) Not detected Not Detected [facility] N. meningitidis DNA MEETA+non-probe Ql (CSF) Not detected Not Detected [facility] Parechovirus A RNA MEETA+non-probe Ql (CSF) Not detected Not Detected [facility] S. agalactiae DNA MEETA+non-probe Ql (CSF) Not detected Not Detected [facility] S. pneumoniae DNA MEETA+non-probe Ql (CSF) Not detected Not Detected [facility] Specimen Description .CSF [facility] VZV DNA MEETA+non-probe Ql (CSF) Not detected Not Detected [facility] Meningitis Panelon 4 C. neoformans/gattii Not detected Normal [facility] Comment on above: Result Comment: Perf ormed by multiplexed nucleic acid assay. Performed By: #### C FCNT, MEVP, CFVD, CGLU, CTP ####[facility] [address] [place] [address] Lab Director: Ramiro Mark MD#### CHESTER MEADE ####[facility] [address] [place] [address] [phone] lab Director: Wil Swanson MD Cytomegalovirus Not detected Normal [facility] Comment on above: Performed By: #### C FCNT, MEVP, CFVD, CGLU, CTP ####[facility] [address] [place] [address] [phone] Lab Director: Ramiro Mark MD#### CHESTER MEADE ####[facility] [address] [place], [place] [phone] Lab Director: Wil Swanson MD Enterovirus Not detected Normal [facility] Comment on above: Performed By: #### C FCNT, MEVP, CFVD, CGLU, CTP ####[facility] [address] [place] [address] Lab Director: Ramiro Mark MD#### CHESTER MEADE ####[facility] [address] [place] [phone] Lab Director: Wil Swanson MD Escherichia coli K1 Not detected Normal [facility] Comment on above: Performed By: #### C FCNT, MEVP, CFVD, CGLU, CTP ####[facility] [address] [place] [address] Lab Director: Ramiro Mark MD#### CHESTER MEADE ####[facility] [address] [place] [address] [phone] Lab Director: Wil Swanson MD Haemoph. influenzae Not detected Normal [facility] Comment on above: Performed By: #### C FCNT, MEVP, CFVD, CGLU, CTP ####[facility] [address] [place] [address] Lab Director: Ramiro Mark MD#### CHESTER MEADE ####[facility] [address] [place] [address] Lab Director: Wil Swanson MD HSV-1 Not detected Normal [facility] Comment on above: Performed By: #### C FCNT, MEVP, CFVD, CGLU, CTP ####[facility] [address] [place] [address] Lab Director: Ramiro Mark MD#### AHSAN MEADEF ####[facility] [address] [place] [address] [phone] Lab Director: Wil Swanson MD HSV-2 Not detected Normal [facility] Comment on above: Performed By: #### C FCNT, MEVP, CFVD, CGLU, CTP ####[facility] [address] [place] [address] Lab Director: Ramiro Mark MD#### CHESTER MEADE ####[facility] [address] [place] [address] Lab Director: Wil Swanson MD Human herpesvirus 6 Not detected Normal [facility] Comment on above: Performed By: #### C FCNT, MEVP, CFVD, CGLU, CTP ####[facility] [address] [place] [address] Lab Director: Ramiro Mark MD#### CHESTER MEADE ####[facility] [address] [place] [address] Lab Director: Wil Swanson MD Human parechovirus Not detected Normal [facility] Comment on above: Performed By: #### C FCNT, MEVP, CFVD, CGLU, CTP ####[facility] [address] [place] [address] Lab Director: Ramiro Mark MD#### CHESTER MEADE ####[facility] [address] [place] [address] [phone] Lab Director: Wil Swanson MD List. monocytogenes Not detected Normal [facility] Comment on above: Performed By: #### C FCNT, MEVP, CFVD, CGLU, CTP ####[facility] [address] [place] [address] Lab Director: Ramiro Mark MD#### CHESTER MEADE ####[facility] [address] [place] [address] [phone] Lab Director: Wil Swanson MD Neis. meningitidis Not detected Normal [facility] Comment on above: Performed By: #### C FCNT, MEVP, CFVD, CGLU, CTP ####[facility] [address] [place] [address] Lab Director: Ramiro Mark MD#### CHESTER MEADE ####[facility] [address] [place] [address] Lab Director: Wil Swanson MD Strep. agalactiae Not detected [facility] Comment on above: Performed By: #### C FCNT, MEVP, CFVD, CGLU, CTP ####[facility] [address] [place] [address] Lab Director: Ramiro Mark MD#### CHESTER MEADE ####[facility] [address] [place] [address] Lab Director: Wil Swanson MD Strep. pneumoniae Not detected Normal [facility] Comment on above: Performed By: #### C FCNT, MEVP, CFVD, CGLU, CTP ####[address] [address] Lab Director: Ramiro Mark MD#### CHESTER MEADE ####[facility] [address] [place] [address] Lab Director: Wil Swanson MD Varicella-zoster Not detected [facility] Comment on above: Performed By: #### C FCNT, MEVP, CFVD, CGLU, CTP ####[address] [address] Lab Director: Ramiro Mark MD#### CHESTER MEADE ####[facility] [address] [place] [address] Lab Director: Wli Swanson MD Source: .CSF Normal [facility] Comment on above: Performed By: #### C FCNT, MEVP, CFVD, CGLU, CTP ####[facility] [address] [place] [address] Lab Director: Ramiro Mark MD#### ALYMCT, AWNCSF ####[facility] [address] [place] [address] lab Director: Wil Swanson MD Myoglobinon 01-19-2024 Myoglobin [Mass/Vol] 166 ng/mL High 28-72 [facility] Comment on above: Performed By: #### C DP, CK, MARCIO, TROPI, BMPX, GLYHGB, BH, SED, ALCB, CRP ####[facility] [address] [place] [address] lab Director: Ramiro Mark MD Myoglobin, Bloodon Myoglobin [Mass/Vol] 166 ng/mL High 28 - 72 ng/mL [facility] No Panel Informationon 01-18 [facility] Interpretation and review of laboratory results Abnormal [facility] Interpretation and review of laboratory results Abnormal [facility] Interpretation and review of laboratory results Abnormal [facility] Radiology Study observation (narrative) [facility] Interpretation and review of laboratory results Abnormal [facility] POC Glucose Fingerstickon Glucose [Mass/Vol] 77 mg/dL 75 - 110 mg/dL [facility] Glucose [Mass/Vol] 111 mg/dL High 75 - 110 mg/dL [facility] Interpretation and review of laboratory results Abnormal [facility] Glucose [Mass/Vol] 179 mg/dL High 75 - 110 mg/dL [facility] Interpretation and review of laboratory results Abnormal [facility] Glucose [Mass/Vol] 257 mg/dL High 75 - 110 mg/dL [facility] Interpretation and review of laboratory results Abnormal [facility] Glucose [Mass/Vol] 255 mg/dL High 75 - 110 mg/dL [facility] Interpretation and review of laboratory results Abnormal [facility] Glucose [Mass/Vol] 235 mg/dL High 75 - 110 mg/dL [facility] Interpretation and review of laboratory results Abnormal [facility] Glucose [Mass/Vol] 178 mg/dL High 75 - 110 mg/dL [facility] Interpretation and review of laboratory results Abnormal [facility] Glucose [Mass/Vol] 190 mg/dL High 75 - 110 mg/dL [facility] Interpretation and review of laboratory results Abnormal [facility] Glucose [Mass/Vol] 235 mg/dL High 75 - 110 mg/dL [facility] Interpretation and review of laboratory results Abnormal [facility] Glucose [Mass/Vol] 269 mg/dL High 75 - 110 mg/dL [facility] Interpretation and review of laboratory results Abnormal [facility] Glucose [Mass/Vol] 303 mg/dL High 75 - 110 mg/dL [facility] Interpretation and review of laboratory results Abnormal [facility] Glucose [Mass/Vol] 297 mg/dL High 75 - 110 mg/dL [facility] Interpretation and review of laboratory results Abnormal [facility] Glucose [Mass/Vol] 496 mg/dL Critically high 75 - 1 10 mg/dL [facility] Glucose [Mass/Vol] 375 mg/dL High 75 - 110 mg/dL [facility] Glucose [Mass/Vol] 548 mg/dL Critically high 75 - 1 10 mg/dL [facility] Interpretation and review of laboratory results Abnormal [facility] Glucose [Mass/Vol] 506 mg/dL Critically high 75 - 1 10 mg/dL [facility] Interpretation and review of laboratory results Abnormal [facility] POCT Glucoseon 01-19-2024 Glucose [Mass/Vol] 199 mg/dL High 74 - 100 mg/dL [facility] PTon 01-19-2024 INR Coag (PPP) [Relative time] 1.1 {INR} Normal [facility] Comment on above: Result Comment: Ther apeutic Range: Moderate Anticoagulant Intensity: INR = 2.0-3.0 High Anticoagulant Intensity: INR = 2.5-3.5 Performed By: #### B MP, PRCAL, PT, MG, CHELO, PTT ####[facility] [address] [place] [address] Lab Director: Ramiro Mark MD PT Coag (PPP) [Time] 13.8 s Normal 11.7-14.9 [facility] Comment on above: Performed By: #### B MP, PRCAL, PT, MG, CHELO, PTT ####[facility] [address] [place] [address] Lab Director: Ramiro Mark MD Phosphoruson 01-19-2024 Phosphate [Mass/Vol] 3.8 mg/dL 2.5 - 4 .5 mg/dL [facility] Phosphate [Mass/Vol] 2.6 mg/dL 2.5 - 4 .5 mg/dL [facility] Phosphorus, Inorg.on 024 Phosphorus, Inorg. 3.8 mg/dL Normal 2.5-4.5 [facility] Comment on above: Performed By: #### B MP, CHELO, MG ####[facility] [address] [place] [address] lab Director: Ramiro Mark MD Phosphorus, Inorg. 2.6 mg/dL Normal 2.5-4.5 [facility] Comment on above: Performed By: #### B MP, PRCAL, PT, MG, CHELO, PTT ####[facility] [address] [place], [place] [id number] Lab Director: Ramiro Mark MD Portable XR Chest AP single viewon 01-19-2024 [facility] R[facility] R[facility] CONSOLIDATED [facility] RIS CONSOLIDATED [facility] CONSOLIDATED [facility] Portable XR Chest AP single viewOrdered By: Sreedhar Mims on 01-19-2024 [facility] Work Phone: Portable XR Chest AP single viewOrdered By: Felix Adams on 01-19-2024 [facility] Work Phone: Procalcitoninon 01-19-2024 Interpretation and review of laboratory results Abnormal [facility] Procalcitonin [Mass/Vol] 0.15 ng/mL High 0.00 - 0.09 ng/mL [facility] Procalcitonin 0.15 ng/mL High 0.00-0.09 [facility] Comment on above: Result Comment: Susp ected [...] entered into the Change in Procalcitonin Calculator ([email or web address]-xphqnzamlx.[email or web address]) to determine the patient's Mortality Risk PrognosisIn healthy neonates, plasma Procalcitonin (PCT) concentrations increase gradually after , reaching peak values at about 24 hours of age then decrease to normal values below 0.5 ng/mL by 48-72 hours of age. Performed By: #### B MP, PRCAL, PT, MG, CHELO, PTT ####[address] [place] [address] [facility] Director: Ramiro Mark MD Protein, CSFon 01-19-2024 Protein (CSF) [Mass/Vol] 89.1 mg/dL High 15.0 - 45.0 mg/dL [facility] Protein, Total, CSFon 2023 Total Protein - CSF 89.1 mg/dL High 15.0-45.0 [facility] Comment on above: Performed By: #### C FCNT, MEVP, CFVD, CGLU, CTP ####[facility] [address] [place] [address] Lab Director: Ramiro Mark MD#### ALYMCT, AWNCSF ####[facility] [address] [place] [address] Lab Director: Wil Swanson MD Protime-INRon 01-19-2024 INR Coag (PPP) [Relative time] 1.1 {INR} [facility] PT Coag (PPP) [Time] 13.8 s [facility] XL Group Resp Viral Panelon Adenovirus Not detected Normal [facility] Comment on above: Performed By: #### R BIRDCAGE ASSEMBLER ####[address] [address] Lab Director: MD Lakesha Moreno.parapertussis Not detected Normal [facility] Comment on above: Performed By: #### R BIRDCAGE ASSEMBLER ####[facility] [place] [address] Lab Director: Ramiro Mark MD Bordetella pertussis Not detected Normal [facility] [facility] Comment on above: Performed By: #### R BIRDCAGE ASSEMBLER ####[id number] [place] [address] Lab Director: Ramiro Mark MD Chlamyd.pneumoniae Not detected Normal [facility] Comment on above: Performed By: #### R BIRDCAGE ASSEMBLER ####[address] [address] Lab Director: Ramiro Mark MD Coronavirus 229E Not detected Normal [facility] Comment on above: Performed By: #### R BIRDCAGE ASSEMBLER ####[address] [place] [address] Lab Director: Ramiro Mark MD Coronavirus HKU1 Not detected Normal [facility] Comment on above: Performed By: #### R BIRDCAGE ASSEMBLER ####[address] [phone] Director: Ramiro Mark MD Coronavirus NL63 Not detected [facility] Comment on above: Performed By: #### R BIRDCAGE ASSEMBLER ####[address] [phone] Director: Ramiro Mark MD Coronavirus OC43 Not detected Normal [facility] Comment on above: Performed By: #### R BIRDCAGE ASSEMBLER ####[address] [phone] Director: Ramiro Mark MD Human Metapneumo Not detected [facility] Comment on above: Performed By: #### R BIRDCAGE ASSEMBLER ####[address] [phone] Director: Ramiro Mark MD Influenza A Not detected Normal [facility] Comment on above: Performed By: #### R BIRDCAGE ASSEMBLER ####[address] [phone] Director: Ramiro Mark MD Influenza B Not detected [facility] Comment on above: Performed By: #### R BIRDCAGE ASSEMBLER ####[address] [phone] Director: Ramiro Mark MD Mycoplas.pneumoniae Not detected Normal [facility] Comment on above: Result Comment: Perf ormed by multiplexed nucleic acid assay. Performed By: #### R BIRDCAGE ASSEMBLER ####[address] [address] Lab Director: Ramiro Mark MD Parainfluenza 1 Not detected Normal [facility] Comment on above: Performed By: #### R BIRDCAGE ASSEMBLER ####[address] [address] Lab Director: Ramiro Mark MD Parainfluenza 2 Not detected Normal [facility] Comment on above: Performed By: #### R BIRDCAGE ASSEMBLER ####[address] [address] Lab Director: Ramiro Mark MD Parainfluenza 3 Not detected Normal [facility] Comment on above: Performed By: #### R BIRDCAGE ASSEMBLER ####[address] [address] Lab Director: Ramiro Mark MD Parainfluenza 4 Not detected Normal [facility] Comment on above: Performed By: #### R BIRDCAGE ASSEMBLER ####[address] [address] Lab Director: Ramiro Mark MD Resp Syncytial Virus Not detected Normal [facility] Comment on above: Performed By: #### R BIRDCAGE ASSEMBLER ####[address] [address] Lab Director: Ramiro Mark MD Rhino/Enterovirus Not detected Normal [facility] Comment on above: Performed By: #### R BIRDCAGE ASSEMBLER ####[address] [address] Lab Director: Ramiro Mark MD SARS-CoV-2 (COVID-19) RNA MEETA+probe Ql (Unsp spec) Not detected Normal NOTDET [facility] Comment on above: Performed By: #### R BIRDCAGE ASSEMBLER ####[facility] [address] [place], [place] [phone] lab Director: Ramiro Mark MD Source: .NASOPHARYNGEAL SWAB Normal [facility] Comment on above: Performed By: #### R BIRDCAGE ASSEMBLER ####[facility] [address] [place] [address] lab Director: Ramiro Mark MD Respiratory Panel, Molecular , with COVID-19 (Restricted: peds pts or suitable admitted adults)on 01-19-2024 Adenovirus DNA MEETA+non-probe Ql (Nph) Not detected Not Detected [facility] B. parapertussis [id number] DNA MEETA+non-probe Ql (Nph) Not detected Not Detected [facility] B. pertussis DNA MEETA+probe Ql (Unsp spec) Not detected Not Detected [facility] C. pneumoniae DNA MEETA+non-probe Ql (Nph) Not detected Not Detected [facility] FLUAV RNA MEETA+non-probe Ql (Nph) Not detected Not Detected [facility] FLUBV RNA MEETA+non-probe Ql (Nph) Not detected Not Detected [facility] HCoV 229E RNA MEETA+non-probe Ql (Nph) Not detected Not Detected [facility] HCoV HKU1 RNA MEETA+non-probe Ql (Nph) Not detected Not Detected [facility] HCoV NL63 RNA MEETA+non-probe Ql (Nph) Not detected Not Detected [facility] HCoV OC43 RNA MEETA+non-probe Ql (Nph) Not detected Not Detected [facility] hMPV RNA MEETA+non-probe Ql (Nph) Not detected Not Detected [facility] M. pneumoniae DNA MEETA+non-probe Ql (Nph) Not detected Not Detected [facility] Parainfluenza virus 1 RNA MEETA+non-probe Ql (Nph) Not detected Not Detected [facility] Parainfluenza virus 2 RNA MEETA+non-probe Ql (Nph) Not detected Not Detected [facility] Parainfluenza virus 3 RNA MEETA+non-probe Ql (Nph) Not detected Not Detected [facility] Parainfluenza virus 4 RNA MEETA+non-probe Ql (Nph) Not detected Not Detected [facility] Rhinovirus+Enterovirus RNA MEETA+non-probe Ql (Nph) Not detected Not Detected [facility] RSV RNA MEETA+non-probe Ql (Nph) Not detected Not Detected [facility] SARS-CoV-2 (COVID-19) RNA MEETA+non-probe Ql (Nph) Not detected Not Detected [facility] Specimen Description .NASOPHARYNGEAL SWAB [facility] Sedimentation Rateon 024 ESR Photometric method (Bld) [Velocity] 28 High [facility] Interpretation and review of laboratory results Abnormal [facility] Sedimentation Rate 28 mm/Hr High 0-20 [facility] Comment on above: Result Comment: ADDE D ON Performed By: #### C DP, CK, MARCIO, TROPI, BMPX, GLYHGB, BH, SED, ALCB, CRP ####[facility] [address] [place], [place] [id number] lab Director: Ramiro Mark MD Surgical Pathology Reporton 01-19-2024 Surgical Pathology Report Normal [facility] TSH w/reflex to FT4on 2023 Thyroid Stim. Horm. 0.58 uIU/mL Normal 0.27-4.20 [facility] Comment on above: Performed By: #### A MON, TSHX ####[facility] [address] [place], [place] [id number] Lab Director: Ramiro Mark MD TSH with Reflexon 01-19-2024 TSH Qn 0.58 m[IU]/L [facility] Troponinon 01-19-2024 Troponin I.cardiac High sensitivity method [Mass/Vol] 39 ng/L High 0 - 22 ng/L [facility] Troponin, High Sens 39 ng/L High 0-22 [facility] Comment on above: Result Comment: High Sensitivity Troponin values cannot be compared with other Troponin methodologies. Performed By: #### C DP, CK, MARCIO, TROPI, BMPX, GLYHGB, BH, SED, ALCB, CRP ####[address] [address] Lab Director: Ramiro Mark MD Interpretation and review of laboratory results Abnormal [facility] Troponin I.cardiac High sensitivity method [Mass/Vol] 45 ng/L High 0 - 22 ng/L [facility] Comment on above: High Sensitivity Tro ponin values cannot be compared with other Troponin methodologies. [facility] Troponin, High Sens 45 ng/L High 0-22 [facility] Comment on above: Result Comment: High Sensitivity Troponin values cannot be compared with other Troponin methodologies. Performed By: #### B H #### [facility] [address] [place] [address] Comparator Operator: Ramiro Santillan MD Urinalysis w/ Microon 2023 Bacteria None Normal NONE [facility] Comment on above: Performed By: #### U AMIC ####[address] [address] Lab Director: Ramiro Mark MD Bilirubin, SemiQt,Ur Negative Normal NEG [facility] Comment on above: Performed By: #### U AMIC ####[address] [address] Lab Director: Ramiro Mark MD Blood, Urine SMALL Abnormal NEG [facility] Comment on above: Performed By: #### U AMIC ####[address] [address] Lab Director: Ramiro Mark MD Casts 2 TO 5 HYALINE Normal 0-8 [facility] Comment on above: Result Comment: Refe rence range defined for non-centrifuged specimen. Performed By: #### U AMIC ####[address] [address] Lab Director: Ramiro Mark MD Clarity (U) Clear Normal CLEAR [facility] Comment on above: Performed By: #### U AMIC ####[address] [place] [address] Lab Director: Ramiro Mark MD Color (U) Yellow Normal YEL [facility] Comment on above: Performed By: #### U AMIC ####[facility] [address] [place] [address] Lab Director: Ramiro Mark MD Epithelial cells LM Ql (Urine sed) 2 TO 5 Normal 0-5 [facility] Comment on above: Performed By: #### U AMIC ####[address] [address] Lab Director: Ramiro Mark MD Glucose Ql (U) 3+ mg/dL Abnormal NEG [facility] Comment on above: Performed By: #### U AMIC ####[address] [address] Lab Director: Ramiro Mark MD Ketones Ql (U) MODERATE Abnormal NEG [facility] Comment on above: Performed By: #### U AMIC ####[address] [address] Lab Director: Ramiro Mark MD Leukocyte esterase Test strip Ql (U) Negative Normal NEG [facility] Comment on above: Performed By: #### U AMIC ####[address] [address] Lab Director: Ramiro Mark MD Nitrite,Ur Negative Normal NEG [facility] Comment on above: Performed By: #### U AMIC ####[address] [place] [address] Lab Director: Ramiro Mark MD PH,Ur 5.5 Normal 5.0-8.0 [facility] Comment on above: Performed By: #### U AMIC ####[facility] [address] [place], [place] [address])[phone] Director: Ramiro Mark MD Protein Ql (U) 3+ mg/dL Abnormal NEG [facility] Comment on above: Performed By: #### U AMIC ####[facility] [address] [place] [address])[phone] Director: Ramiro Mark MD Spec. [place],Ur 1.033 High 1.005-1.030 [facility] Comment on above: Performed By: #### U AMIC ####[facility] [address] [place], [place] [address])[phone] Director: Ramiro Mark MD Urine RBC's 5 TO 10 Normal 0-4 [facility] Comment on above: Result Comment: Refe rence range defined for non-centrifuged specimen. Performed By: #### U AMIC ####[address] [address])[phone] Director: Ramiro Mark MD Urine WBC's 2 TO 5 Normal 0-5 [facility] Comment on above: Performed By: #### U AMIC ####[facility] [place] [address])[phone] Director: Ramiro Mark MD Urobilinogen,Ur Normal Normal 0.0-1.0 [facility] Comment on above: Performed By: #### U AMIC ####[facility] [address] [place], [place] [address])[phone] Director: Ramiro Mark MD Urinalysis with Microscopico n 01-19-2024 Bacteria LM Ql (Urine sed) None None [facility] Bilirubin Ql (U) Negative NEGATIVE [facility] Casts LM.LPF (Urine sed) [#/Area] 2 TO 5 HYALINE Reference range defined for non-centrifuged specimen. [facility] Clarity (U) Clear Clear [facility] Color (U) Yellow Yellow [facility] Epithelial cells LM.HPF (Urine sed) [#/Area] 2 TO 5 [facility] Glucose Test strip (U) [Mass/Vol] 3+ Abnormal NEGATIVE mg/dL [facility] Hemoglobin Auto test strip Ql (U) SMALL Abnormal NEGATIVE [facility] Interpretation and review of laboratory results Abnormal [facility] Ketones (U) [Mass/Vol] MODERATE Abnormal NEGAT RAJAN mg/dL [facility] Leukocyte esterase Test strip Ql (U) Negative NEGATIVE [facility] Nitrite Ql (U) Negative NEGATIVE [facility] pH (U) 5.5 [pH] 5.0 - 8.0 [facility] Protein (U) [Mass/Vol] 3+ Abnormal NEGAT RAJAN mg/dL [facility] RBC LM.HPF (Urine sed) [#/Area] 5 TO 10 [facility] Specific gravity (U) [Rel density] 1.033 High 1.005 - 1.030 [facility] Urobilinogen Qn (U) Normal 0.0 - 1. 0 EU/dL [facility] WBC LM.HPF (Urine sed) [#/Area] 2 TO 5 [facility] XR ABDOMEN FOR NG/OG/NE TUBE PLACEMENTon 01-19-2024 XR ABDOMEN FOR NG/OG/NE TUBE PLACEMENT Normal [facility] MHPN RIS CONSOLIDATED MHPN RIS CONSOLIDATED [facility] XR CHEST PORTABLEon 01-19-20 24 XR CHEST PORTABLE Normal [facility] XR CHEST PORTABLE Normal [facility] BMPon 01-18-2024 Anion gap [Moles/Vol] 14 mmol/L 9 - 17 mmol/L [facility] Calcium [Mass/Vol] 9.3 mg/dL 8.6 - 10. 4 mg/dL [facility] Chloride [Moles/Vol] 95 mmol/L Low 98 - 10 7 mmol/L [facility] CO2 [Moles/Vol] 22 mmol/L 20 - 31 mmol/L [facility] Creatinine [Mass/Vol] 1.7 mg/dL High 0.7 - 1.2 mg/dL [facility] GFR/1.73 sq M.predicted MDRD (S/P/Bld) [Vol rate/Area] 49 mL/min/{1.73_m2} Low - PINF [facility] Comment on above: These results are [...] 242 mg/dL High 70 - 99 mg/dL [facility] Potassium [Moles/Vol] 4.7 mmol/L 3.7 - 5.3 mmol/L [facility] Sodium [Moles/Vol] 131 mmol/L Low 135 - 144 mmol/L [facility] Urea nitrogen [Mass/Vol] 44 mg/dL High 6 - 20 mg/dL [facility] Urea nitrogen/Creatinine [Mass ratio] 26 mg/mg High 9 - 20 [facility] Basic Metabolic Profon 01-17 Anion gap [Moles/Vol] 14 mmol/L Normal 9-17 [facility] Comment on above: Performed By: #### L ACTIC #### [facility] [address] [place] [address] Comparator Operator: Ramiro Santillan MD BUN/CRE Ratio 26 High 9-20 [facility] Comment on above: Performed By: #### L ACTIC #### [facility] [address] [place] [address] Comparator Operator: Ramiro Santillan MD Calcium [Mass/Vol] 9.3 mg/dL Normal 8.6-10.4 [facility] Comment on above: Performed By: #### L ACTIC #### [facility] [address] [place] [address] Comparator Operator: Ramiro Santillan MD Chloride [Moles/Vol] 95 mmol/L Low 98-107 [facility] Comment on above: Performed By: #### L ACTIC #### [facility] [address] [place] [address] Comparator Operator: Ramiro Santillan MD CO2 [Moles/Vol] 22 mmol/L Normal 20-31 [facility] Comment on above: Performed By: #### L ACTIC #### [facility] [address] [place] [address] Comparator Operator: Ramiro Santillan MD Creatinine [Mass/Vol] 1.7 mg/dL High 0.7-1.2 [facility] Comment on above: Performed By: #### L ACTIC #### [facility] [address] [place] [address] Comparator Operator: Ramiro Santillan MD GFR/1.73 sq M.predicted among non-blacks MDRD (S/P/Bld) [Vol rate/Area] 49 mL/min/{1.73_m2} Low >60 [facility] Comment on above: Result Comment: These [...] secretion. Performed By: #### L ACTIC #### [facility] [address] [place] [address] Comparator Operator: Ramiro Santillan MD Glucose [Mass/Vol] 242 mg/dL High 70-99 [facility] Comment on above: Performed By: #### L ACTIC #### [facility] [address] [place] [address] Comparator Operator: Ramiro Santillan MD Potassium [Moles/Vol] 4.7 mmol/L Normal 3.7-5.3 [facility] Comment on above: Performed By: #### L ACTIC #### [facility] [address] [place], [place] [id number] Comparator Operator: Ramiro Santillan MD Sodium [Moles/Vol] 131 mmol/L Low 135-144 [facility] Comment on above: Performed By: #### L ACTIC #### [facility] [address] [place] [address] Comparator Operator: Ramiro Santillan MD Urea nitrogen [Mass/Vol] 44 mg/dL High 6-20 [facility] Comment on above: Performed By: #### L ACTIC #### [facility] [address] [place] [address] Comparator Operator: Ramiro Santillan MD CBC with Auto Differentialon 01-18-2024 Basophils (Bld) [#/Vol] 0.06 10*3/uL [facility] Basophils/100 WBC (Bld) 1 % 0 - 2 % [facility] Eosinophils (Bld) [#/Vol] 0.17 10*3/uL [facility] Eosinophils/100 WBC (Bld) 2 % 1 - 4 % [facility] Erythrocyte distribution width (RBC) [Ratio] 13.4 % 11.8 - 14.4 % [facility] Hematocrit (Bld) [Volume fraction] 36.5 % Low 40.7 - 50.3 % [facility] Hemoglobin (Bld) [Mass/Vol] 13.0 g/dL 13.0 - 17.0 g/dL [facility] Immature granulocytes (Bld) [#/Vol] 0.03 10*3/uL [facility] Immature granulocytes/100 WBC (Bld) 0 % 0 [facility] Interpretation and review of laboratory results Abnormal [facility] Lymphocytes/100 WBC (Bld) 23 % Low 24 - 43 % [facility] Lymphocytes/100 WBC (Bld) 1.95 % [facility] MCH (RBC) [Entitic mass] 29.6 pg 25.2 - 33.5 pg [facility] MCHC (RBC) [Mass/Vol] 35.6 g/dL High 28.4 - 34.8 g/dL [facility] MCV (RBC) [Entitic vol] 83.1 fL 82.6 - 102.9 fL [facility] Monocytes/100 WBC (Bld) 6 % 3 - 12 % [facility] Monocytes/100 WBC (Bld) 0.54 % [facility] Neutrophils/100 WBC (Bld) 68 % High 36 - 65 % [facility] Nucleated RBC/100 WBC (Bld) [Ratio] 0.0 % 0.0 per 100 WBC [facility] Platelet mean volume (Bld) [Entitic vol] 10.4 fL 8.1 - 13.5 fL [facility] Platelets (Bld) [#/Vol] 212 10*3/uL [facility] RBC (Bld) [#/Vol] 4.39 10*6/uL 4.21 - 5.7 7 m/uL [facility] Segmented neutrophils/100 WBC (Bld) 5.80 % [facility] WBC other (Bld) [#/Vol] 8.6 [facility] CBC with Diffon 01-18-2024 Abs. Basophil 0.06 k/uL Normal 0.00-0.20 [facility] Comment on above: Performed By: #### L ACTIC #### [facility] [address] [place] [address] Comparator Operator: Ramiro Santillan MD Abs.Imm.Granulocyte 0.03 k/uL Normal 0.00-0.30 [facility] Comment on above: Performed By: #### L ACTIC #### [facility] [address] [place] [address] Comparator Operator: Ramiro Santillan MD Abs.Neutrophil (Seg) 5.80 k/uL Normal 1.50-8.10 [facility] Comment on above: Performed By: #### L ACTIC #### [address] [place], [facility] Comparator Operator: Ramiro Santillan MD Basophils/100 WBC (Bld) 1 % Normal 0-2 [facility] Comment on above: Performed By: #### L ACTIC #### [address] [place], [place] [address] Comparator Operator: Ramiro Santillan MD Eosinophils (Bld) [#/Vol] 0.17 10*3/uL Normal 0.00-0.44 [facility] Comment on above: Performed By: #### L ACTIC #### [address] [place], [facility] Comparator Operator: Ramiro Santillan MD Eosinophils/100 WBC (Bld) 2 % Normal 1-4 [facility] Comment on above: Performed By: #### L ACTIC #### [address] [place], [facility] Comparator Operator: Ramiro Santillan MD Erythrocyte distribution width (RBC) [Ratio] 13.4 % Normal 11.8-14.4 [facility] Comment on above: Performed By: #### L ACTIC #### [address] [place], [facility] Comparator Operator: Ramiro Santillan MD Hematocrit (Bld) [Volume fraction] 36.5 % Low 40.7-50.3 [facility] Comment on above: Performed By: #### L ACTIC #### [address] [place], [facility] Comparator Operator: Ramiro Santillan MD Hemoglobin (Bld) [Mass/Vol] 13.0 g/dL Normal 13.0-17.0 [facility] Comment on above: Performed By: #### L ACTIC #### [facility] [address] [place], [place] [id number] Comparator Operator: Ramiro Santillan MD Immature granulocytes/100 WBC (Bld) 0 % Normal 0 [facility] Comment on above: Performed By: #### L ACTIC #### [facility] [address] [place], [place] [id number] Comparator Operator: Ramiro Santillan MD Lymphocytes (Bld) [#/Vol] 1.95 10*3/uL Normal 1.10-3.70 [facility] Comment on above: Performed By: #### L ACTIC #### [address] [place], [place] [id number] Comparator Operator: Ramiro Santillan MD Lymphocytes/100 WBC (Bld) 23 % Low 24-43 [facility] Comment on above: Performed By: #### L ACTIC #### [facility] [address] [place] [address] [address] [place], [place] [phone] Comparator Operator: Ramiro Santillan MD MCH (RBC) [Entitic mass] 29.6 pg Normal 25.2-33.5 [facility] Comment on above: Performed By: #### L ACTIC #### [address] [place], [place] [id number] Comparator Operator: Ramiro Santillan MD MCHC (RBC) [Mass/Vol] 35.6 g/dL High 28.4-34.8 [facility] Comment on above: Performed By: #### L ACTIC #### [address] [place], [place] [id number] Comparator Operator: Ramiro Santillan MD MCV (RBC) [Entitic vol] 83.1 fL Normal 82.6-102.9 [facility] Comment on above: Performed By: #### L ACTIC #### [facility] [address] [place] [address] Dr[address] [place], [place] [phone] Comparator Operator: Ramiro Santillan MD Monocytes (Bld) [#/Vol] 0.54 10*3/uL Normal 0.10-1.20 [facility] Comment on above: Performed By: #### L ACTIC #### [facility] [address] [place] [address] Comparator Operator: Ramiro Santillan MD Monocytes/100 WBC (Bld) 6 % Normal 3-12 [facility] Comment on above: Performed By: #### L ACTIC #### [facility] [address] [place], [place] [phone] Comparator Operator: Ramiro Santillan MD Neutrophil (Seg) 68 % High 36-65 [facility] Comment on above: Performed By: #### L ACTIC #### [facility] [address] [place], [place] [id number] Comparator Operator: Ramiro Santillan MD NRBC Automated 0.0 per 100 WBC Normal 0.0 [facility] Comment on above: Performed By: #### L ACTIC #### [facility] [address] [place], [place] [phone] Comparator Operator: Ramiro Santillan MD Platelet mean volume (Bld) [Entitic vol] 10.4 fL Normal 8.1-13.5 [facility] Comment on above: Performed By: #### L ACTIC #### [facility] [address] [place], [place] [phone] Comparator Operator: Ramiro Santillan MD Platelets (Bld) [#/Vol] 212 10*3/uL Normal 138-453 [facility] Comment on above: Performed By: #### L ACTIC #### [facility] [address] [place], [place] [phone] Comparator Operator: Ramiro Santillan MD RBC (Bld) [#/Vol] 4.39 10*6/uL Normal 4.21-5.77 [facility] Comment on above: Performed By: #### L ACTIC #### [facility] [address] [place], [place] [id number] Comparator Operator: Ramiro Santillan MD WBC (Bld) [#/Vol] 8.6 10*3/uL Normal 3.5-11.3 [facility] Comment on above: Performed By: #### L ACTIC #### [facility] [address] [place], [place] [id number] Comparator Operator: Ramiro Santillan MD CTA HEAD NECK W [...] Daniel Ramos MD 01/18/24 Final result Normal [facility] CTA Head vessels and Neck ve ssels W contrast Karri 01-18-2024 1. No evidence of arterial stenosis or occlusion in the head or neck. 2. No acute intracranial abnormality. 3. Sphenoid sinus disease. [facility] CONSOLIDATED EXAMINATION: CTA OF THE HEAD [...] fluid collection. The winkler-white differentiation is maintained. Daniel Cherry MD - 01/18/2024 EXAMINATION: CTA OF THE [...] acute intracranial abnormality. 3. Sphenoid sinus disease. [facility] Radiology Study observation (narrative) [facility] CTA Head vessels and Neck ve ssels W contrast IVOrdered By: Daniel Ramos on 01-18-2024 [facility] Work Phone: Glucose, Whole Bloodon 01-17 Glucose [Mass/Vol] 232 mg/dL High 74 - 100 mg/dL [facility] Interpretation and review of laboratory results Abnormal [facility] Glucose [Mass/Vol] 232 mg/dL High 74-100 [facility] Glucose [Mass/Vol] 230 mg/dL High 74 - 100 mg/dL [facility] Interpretation and review of laboratory results Abnormal [facility] Glucose [Mass/Vol] 230 mg/dL High 74-100 [facility] Hepatic Function Panelon Albumin [Mass/Vol] 3.9 g/dL 3.5 - 5.2 g/dL [facility] Albumin/Globulin [Mass ratio] 1.3 {ratio} 1.0 - 2.5 [facility] ALP [Catalytic activity/Vol] 105 U/L 40 - 129 U/L [facility] ALT [Catalytic activity/Vol] 18 U/L 5 - 41 U/L [facility] AST [Catalytic activity/Vol] 16 U/L NINF - 40 U/L [facility] Bilirubin [Mass/Vol] 0.2 mg/dL Low 0.3 - 1 .2 mg/dL [facility] Bilirubin.direct [Mass/Vol] mg/dL NINF - 0.3 mg/dL [facility] Bilirubin.indirect [Mass/Vol] Can not be calculated 0.0 - 1.0 mg/dL [facility] Protein [Mass/Vol] 7.0 g/dL 6.4 - 8.3 g/dL [facility] Lactic Acidon 01-18-2024 Interpretation and review of laboratory results Abnormal [facility] Lactate (BldV) [Moles/Vol] 2.8 mmol/L High 0.5 - 2.2 mmol/L [facility] Lactate [Moles/Vol] 2.8 mmol/L High 0.5-2.2 [facility] Comment on above: Performed By: #### L ACTIC #### [facility] [address] [place], [place] [id number] Comparator Operator: Ramiro Santillan MD Liver Profileon 01-18-2024 Albumin [Mass/Vol] 3.9 g/dL Normal 3.5-5.2 [facility] Comment on above: Performed By: #### L ACTIC #### [facility] [address] [place], [place] [id number] Comparator Operator: Raimro Santillan MD Albumin/Glob Ratio 1.3 Normal 1.0-2.5 [facility] Comment on above: Performed By: #### L ACTIC #### [facility] [address] [place], [place] [id number] Comparator Operator: Ramiro Santillan MD Alkaline Phos 105 U/L Normal 40-129 [facility] Comment on above: Performed By: #### L ACTIC #### [facility] [address] [place], [place] [id number] Comparator Operator: Ramiro Santillan MD ALT [Catalytic activity/Vol] 18 U/L Normal 5-41 [facility] Comment on above: Performed By: #### L ACTIC #### [facility] [address] [place], [place] [id number] Comparator Operator: Ramiro Santillan MD AST [Catalytic activity/Vol] 16 U/L Normal <40 [facility] Comment on above: Performed By: #### L ACTIC #### [facility] [address] [place] [address] Comparator Operator: Ramiro Santillan MD Bilirubin [Mass/Vol] 0.2 mg/dL Low 0.3-1.2 [facility] Comment on above: Performed By: #### L ACTIC #### [facility] [address] [place], [place] [id number] Comparator Operator: Ramiro Santillan MD Bilirubin, Indirect Can not be calculated Normal 0.0-1 .0 [facility] Comment on above: Performed By: #### L ACTIC #### [facility] [address] [place], [place] [id number] Comparator Operator: Ramiro Santillan MD Bilirubin.indirect [Mass/Vol] mg/dL Normal <0.3 [facility] Comment on above: Performed By: #### L ACTIC #### [facility] [address] [place], [place] [id number] Comparator Operator: Ramiro Santillan MD Protein [Mass/Vol] 7.0 g/dL Normal 6.4-8.3 [facility] Comment on above: Performed By: #### L ACTIC #### [facility] [address] [place], [place] [id number] Comparator Operator: Ramiro Santillan MD Magnesiumon 01-18-2024 Magnesium [Mass/Vol] 2.2 mg/dL 1.6 - 2 .6 mg/dL [facility] Magnesium [Mass/Vol] 2.2 mg/dL Normal 1.6-2.6 [facility] Comment on above: Performed By: #### L ACTIC #### [facility] [address] [place], [place] [id number] Comparator Operator: Ramiro Santillan MD No Panel Informationon 01-17 Interpretation and review of laboratory results Abnormal [facility] Troponinon 01-18-2024 Interpretation and review of laboratory results Abnormal [facility] Troponin I.cardiac High sensitivity method [Mass/Vol] 48 ng/L High 0 - 22 ng/L [facility] Comment on above: High Sensitivity Tro ponin values cannot be compared with other Troponin methodologies. [facility] Troponin, High Sens 48 ng/L High 0-22 [facility] Comment on above: Result Comment: High Sensitivity Troponin values cannot be compared with other Troponin methodologies. Performed By: #### L ACTIC #### [facility] [address] [place] [address] Comparator Operator: Ramiro Santillan MD HSV 1,2 DNA PCRon 09-26-2023 HSV 1 DNA Negative Normal [facility] Comment on above: Result Comment: Refe rence range: Negative Performed By: #### L HSV #### Testing performed at [facility] HSV 2 DNA Negative Normal [facility] Comment on above: Result Comment: Refe rence range: Negative (NOTE) This test was developed and its performance characteristics determined by [facility]. It has not been cleared or approved by the U.S. Food and Drug Administration. The FDA has determined that such clearance or approval is not necessary. This test is used for clinical purposes. It should not be regarded as investigational or research. PERFORMED AT [facility] Performed By: #### L HSV #### Testing performed at [facility] CBCon 09-24-2023 ABSOLUTE BAS 0.0 10*3/uL Normal 0.0-0.2 [facility] ABSOLUTE EOS 0.1 10*3/uL Normal 0.0-0.7 [facility] ABSOLUTE NEUTROPHIL COUNT 12.9 10*3/uL High 1.4-6.5 [facility] Basophils/100 WBC (Bld) 0.1 % Normal 0.0-2.0 [facility] DTYPE AUTO DIFF Normal [facility] Eosinophils/100 WBC (Bld) 0.5 % Normal 0.0-11.0 [facility] Lymphocytes (Bld) [#/Vol] 1.0 10*3/uL Low 1.2-3.4 [facility] Lymphocytes/100 WBC (Bld) 6.3 % Low 20.0-55.0 [facility] Monocytes (Bld) [#/Vol] 1.2 10*3/uL High 0.0-0.7 [facility] Monocytes/100 WBC (Bld) 7.9 % Normal 0.0-10.0 [facility] Neutrophils/100 WBC (Bld) 85.2 % High 37.0-75.0 [facility] Erythrocyte distribution width (RBC) [Ratio] 14.2 % Normal 11.5-14.5 [facility] Hematocrit (Bld) [Volume fraction] 34.1 % Low 42.0-52.0 [facility] Hemoglobin (Bld) [Mass/Vol] 11.4 g/dL Low 14.0-18.0 [facility] MCH (RBC) [Entitic mass] 29.0 pg Normal 26.0-35.0 [facility] MCHC (RBC) [Mass/Vol] 33.4 g/dL Normal 27.0-37.0 [facility] MCV (RBC) [Entitic vol] 86.7 fL Normal 80.0-100.0 [facility] Platelet mean volume (Bld) [Entitic vol] 8.8 fL Normal 7.4-11.0 [facility] Platelets (Bld) [#/Vol] 161 10*3/uL Normal 130-400 [facility] RBC (Bld) [#/Vol] 3.94 10*6/uL Low 4.0-6.1 [facility] WBC (Bld) [#/Vol] 15.2 10*3/uL High 3.6-11.0 [facility] CBC, EDIF, PLATELETon 2022 ABSOLUTE BASOPHIL COUNT 0.0 10*3/uL 0.0 - 0.2 10*3/uL [facility] Basophils/100 WBC (Bld) 0.1 % 0.0 - 2.0 % [facility] Differential cell count method Nom (Bld) AUTO DIFF % [facility] Eosinophils (Bld) [#/Vol] 0.1 10*3/uL 0.0 - 0.7 10*3/uL [facility] Eosinophils/100 WBC (Bld) 0.5 % 0.0 - 11.0 % [facility] Erythrocyte distribution width (RBC) [Ratio] 14.2 % 11.5 - 14.5 % [facility] Hematocrit (Bld) [Volume fraction] 34.1 % Low 42.0 - 52.0 % [facility] Hemoglobin (Bld) [Mass/Vol] 11.4 g/dL Low [facility] Interpretation and review of laboratory results Abnormal [facility] Lymphocytes (Bld) [#/Vol] 1.0 10*3/uL Low 1.2 - 3.4 10*3/uL [facility] Lymphocytes/100 WBC (Bld) 6.3 % Low 20.0 - 55.0 % [facility] MCH (RBC) [Entitic mass] 29.0 pg 26.0 - 35.0 PG [facility] MCHC (RBC) [Mass/Vol] 33.4 g/dL [facility] MCV (RBC) [Entitic vol] 86.7 fL [facility] Monocytes (Bld) [#/Vol] 1.2 10*3/uL High 0.0 - 0.7 10*3/uL [facility] Monocytes/100 WBC (Bld) 7.9 % 0.0 - 10.0 % [facility] Neutrophils (Bld) [#/Vol] 12.9 10*3/uL High 1.4 - 6.5 10*3/uL [facility] Neutrophils/100 WBC (Bld) 85.2 % High 37.0 - 75.0 % [facility] Platelet mean volume (Bld) [Entitic vol] 8.8 fL [facility] Platelets (Bld) [#/Vol] 161 10*3/uL 130 - 400 10*3/uL [facility] RBC (Bld) [#/Vol] 3.94 10*6/uL Low 4.0 - 6.1 10*6/uL [facility] WBC (Bld) [#/Vol] 15.2 10*3/uL High 3.6 - 11.0 10*3/uL [facility] CKon 09-24-2023 CK [Catalytic activity/Vol] 631 U/L High [facility] CPKon 09-24-2023 CPK 631 IU/L High 55-170 [facility] GLUCOSE (POC DEVICE)on 09-24 GLUCOSE, POINT OF CARE 203 High [facility] Interpretation and review of laboratory results Abnormal [facility] Operator [id number] [facility] GLUCOSE, POINT OF CARE 183 High [facility] Interpretation and review of laboratory results Abnormal [facility] Operator [phone] [facility] GLUCOSE, POINT OF CARE 109 High [facility] Interpretation and review of laboratory results Abnormal [facility] Operator [id number] [facility] GLUCOSE, POINT OF CARE 168 High [facility] Interpretation and review of laboratory results Abnormal [facility] Operator [phone] [facility] MAGNESIUMon 09-24-2023 Magnesium [Mass/Vol] 2.0 mg/dL Normal 1.6-2.3 [facility] Magnesium [Mass/Vol] 2.0 mg/dL [facility] No Panel Informationon 09-24 Interpretation and review of laboratory results Abnormal [facility] POCT GLUCOSEon 09-24-2023 Glucose [Mass/Vol] 203 mg/dL High 70-100 [facility] MRI MANAGER [id number] Normal [facility] Glucose [Mass/Vol] 183 mg/dL High 70-100 [facility] MRI MANAGER [id number] Normal [facility] Glucose [Mass/Vol] 109 mg/dL High 70-100 [facility] MRI MANAGER [id number] Normal [facility] Glucose [Mass/Vol] 168 mg/dL High 70-100 [facility] MRI MANAGER [id number] Normal [facility] RENAL FUNCTION PANELon 09-24 Albumin [Mass/Vol] 3.2 G/dl Low 3.5 - 5.0 G/dl [facility] Calcium [Mass/Vol] 8.0 mg/dL Low [facility] Chloride [Moles/Vol] 111 mmol/L [facility] Comment on above: Please note: Triglyc eride levels of 600mg/dL or higher may positively bias chloride results by approximately 2.1 mmol CO2 [Moles/Vol] 24 mmol/L [facility] Creatinine [Mass/Vol] 1.10 mg/dL [facility] GFR COMMENT Average GFR for 40-4 9 years old = 99. [facility] Comment on above: Chronic Kidney disea se, GFR = <60. Kidney failure, GFR = <15. The GFR estimate is not adjusted for extreme body surface area or acute process, nor has it been validated for women or ethnic groups other than and . GFR/1.73 sq M.predicted among blacks MDRD (S/P/Bld) [Vol rate/Area] 92 mL/min/{1.73_m2} ml/min/1.73s q.m [facility] GFR/1.73 sq M.predicted among non-blacks MDRD (S/P/Bld) [Vol rate/Area] 76 mL/min/{1.73_m2} ml/min/1.73s q.m [facility] Glucose post fast [Mass/Vol] 106 mg/dL High [facility] Comment on above: NORMAL <100 mg/dL PREDIABETES 101-126 mg/dL DIABETES 126 mg/dL or higher Phosphate [Mass/Vol] 2.9 mg/dL [facility] Potassium [Moles/Vol] 3.8 mmol/L [facility] Sodium [Moles/Vol] 138 mmol/L [facility] Urea nitrogen [Mass/Vol] 17 mg/dL [facility] RENAL PANEL,FASTINGon 2022 ALBUMIN 3.2 G/dl Low 3.5-5.0 [facility] Calcium [Mass/Vol] 8.0 mg/dL Low 8.4-10.2 [facility] Chloride [Moles/Vol] 111 mmol/L High 98-107 [facility] Comment on above: Result Comment: Juana spencer note: Triglyceride levels of 600mg/dL or higher may positively bias chloride results by approximately 2.1 mmol CO2 [Moles/Vol] 24 mmol/L Normal 22-30 [facility] Creatinine [Mass/Vol] 1.10 mg/dL Normal 0.7-1.2 [facility] EST. GFR, 92 ml/min/1.73sq.m [facility] EST. GFR,Non 76 ml/min/1.73sq.m [facility] GFR Information Average GFR for 40-4 9 years old = 99. Normal [facility] Comment on above: Result Comment: Ballistic Expert alfreda Kidney disease, GFR = <60. Kidney failure, GFR = <15. The GFR estimate is not adjusted for extreme body surface area or acute process, nor has it been validated for women or ethnic groups other than and . Glucose [Mass/Vol] 106 mg/dL High 70-100 [facility] Comment on above: Result Comment: NORMAL <100 mg/dL PREDIABETES 101-126 mg/dL DIABETES 126 mg/dL or higher PHOSPHOROUS 2.9 MG/DL Normal 2.5-4.5 [facility] Potassium [Moles/Vol] 3.8 mmol/L Normal 3.5-5.1 [facility] Sodium [Moles/Vol] 138 mmol/L Normal 137-145 [facility] Urea nitrogen [Mass/Vol] 17 mg/dL Normal 7-20 [facility] B12 & FOLATEon 09-23-2023 Cobalamin (Vitamin B12) [Mass/Vol] 383 pg/mL 239 - 931 PG/ML [facility] Folate [Mass/Vol] 6.4 ng/mL [facility] B12 FOLATEon 09-23-2023 Cobalamin (Vitamin B12) [Mass/Vol] 383 pg/mL Normal 239-931 [facility] FOLATE 6.4 NG/ML Normal 2.56-20.0 [facility] CBCon 09-23-2023 ABSOLUTE BAS 0.0 10*3/uL Normal 0.0-0.2 [facility] ABSOLUTE EOS 0.0 10*3/uL Normal 0.0-0.7 [facility] ABSOLUTE NEUTROPHIL COUNT 12.1 10*3/uL High 1.4-6.5 [facility] Basophils/100 WBC (Bld) 0.1 % Normal 0.0-2.0 [facility] DTYPE AUTO DIFF Normal [facility] Eosinophils/100 WBC (Bld) 0.1 % Normal 0.0-11.0 [facility] Lymphocytes (Bld) [#/Vol] 0.8 10*3/uL Low 1.2-3.4 [facility] Lymphocytes/100 WBC (Bld) 6.0 % Low 20.0-55.0 [facility] Monocytes (Bld) [#/Vol] 1.1 10*3/uL High 0.0-0.7 [facility] Monocytes/100 WBC (Bld) 7.6 % Normal 0.0-10.0 [facility] Neutrophils/100 WBC (Bld) 86.2 % High 37.0-75.0 [facility] Erythrocyte distribution width (RBC) [Ratio] 13.9 % Normal 11.5-14.5 [facility] Hematocrit (Bld) [Volume fraction] 34.7 % Low 42.0-52.0 [facility] Hemoglobin (Bld) [Mass/Vol] 11.6 g/dL Low 14.0-18.0 [facility] MCH (RBC) [Entitic mass] 28.9 pg Normal 26.0-35.0 [facility] MCHC (RBC) [Mass/Vol] 33.4 g/dL Normal 27.0-37.0 [facility] MCV (RBC) [Entitic vol] 86.5 fL Normal 80.0-100.0 [facility] Platelet mean volume (Bld) [Entitic vol] 8.5 fL Normal 7.4-11.0 [facility] Platelets (Bld) [#/Vol] 167 10*3/uL Normal 130-400 [facility] RBC (Bld) [#/Vol] 4.01 10*6/uL Normal 4.0-6.1 [facility] WBC (Bld) [#/Vol] 14.1 10*3/uL High 3.6-11.0 [facility] CBC, EDIF, PLATELETon 2022 ABSOLUTE BASOPHIL COUNT 0.0 10*3/uL 0.0 - 0.2 10*3/uL [facility] Basophils/100 WBC (Bld) 0.1 % 0.0 - 2.0 % [facility] Differential cell count method Nom (Bld) AUTO DIFF % [facility] Eosinophils (Bld) [#/Vol] 0.0 10*3/uL 0.0 - 0.7 10*3/uL [facility] Eosinophils/100 WBC (Bld) 0.1 % 0.0 - 11.0 % [facility] Erythrocyte distribution width (RBC) [Ratio] 13.9 % 11.5 - 14.5 % [facility] Hematocrit (Bld) [Volume fraction] 34.7 % Low 42.0 - 52.0 % [facility] Hemoglobin (Bld) [Mass/Vol] 11.6 g/dL Low [facility] Interpretation and review of laboratory results Abnormal [facility] Lymphocytes (Bld) [#/Vol] 0.8 10*3/uL Low 1.2 - 3.4 10*3/uL [facility] Lymphocytes/100 WBC (Bld) 6.0 % Low 20.0 - 55.0 % [facility] MCH (RBC) [Entitic mass] 28.9 pg 26.0 - 35.0 PG [facility] MCHC (RBC) [Mass/Vol] 33.4 g/dL [facility] MCV (RBC) [Entitic vol] 86.5 fL [facility] Monocytes (Bld) [#/Vol] 1.1 10*3/uL High 0.0 - 0.7 10*3/uL [facility] Monocytes/100 WBC (Bld) 7.6 % 0.0 - 10.0 % [facility] Neutrophils (Bld) [#/Vol] 12.1 10*3/uL High 1.4 - 6.5 10*3/uL [facility] Neutrophils/100 WBC (Bld) 86.2 % High 37.0 - 75.0 % [facility] Platelet mean volume (Bld) [Entitic vol] 8.5 fL [facility] Platelets (Bld) [#/Vol] 167 10*3/uL 130 - 400 10*3/uL [facility] RBC (Bld) [#/Vol] 4.01 10*6/uL 4.0 - 6.1 10*6/uL [facility] WBC (Bld) [#/Vol] 14.1 10*3/uL High 3.6 - 11.0 10*3/uL [facility] CKon 09-23-2023 CK [Catalytic activity/Vol] 787 U/L High [facility] CPKon 09-23-2023 CPK 787 IU/L High 55-170 [facility] Cardiac echo study Procedure on [...] Doppler, and color-flow Echocardiogram Imaging system used: [employer] 2D Dimensions IVSd 1.4 cm M: 0.6-1.0 [...] ms MVA PHT 4.40 cm2 MV Dec [place] 515.21 cm/s2 MV Decel. Time 176.32 (160-240 [...] Doppler, and color-flow Echocardiogram Imaging system used: [employer] 2D Dimensions IVSd 1.4 cm M: 0.6-1.0LVEF (Torres's)72.70 % M: 52 - 72 PWd 1.1 cm M: 0.6 - 1.0EF AP4-a2DQ73.36 % LVDd 4.0 cm M: 4.2 - 5.8EF AP2-a2DQ71.42 % LVDs 2.96 cm M: 2.5 - 4.0EF BP-a2DQ72.70 % Aortic Root 2.98 cm M: 3.1 - 3.8DDWGU15 mL Aortic Root Index1.4 cm/u1AHUVA32.15 mL M: 62 - 150 Ascending Aorta 3.09 cm M: 2.6 - 3.4LV Volume Index44.30 mL/m2 M: 34 - 74 Ascending Aorta Index: 1.5 cm/m2LA Ulabpe19.0 mL Left Atrium 2.40 cm M: 3.0 [...] Ratio1.32MV PHT50.00 ms MVA PHT4.40 cm2MV Dec [place] 515.21 cm/s2 MV Decel. Iffl456.32 (160-240 ms) Tricuspid Valve TR P. Velocity2.17 m/sRAP Estimate3 mmHg RVSP21.75 mmHgTR maxPG 18.75 mmHg [facility]narrative[facility] Procedure Ordered By: Javid Colindres on 09-23-2023 [facility] Work Phone: EEG AWAKE, ROUTINEon 023 Cecil Yu MD 09/23/2023 3:30 PM Interpreting physician: Cecil Yu M.D. This is a routine EEG performed on a 47 y.o. year-old male using standard 10-20 lead placement and a [employer] [place] system. All data was obtained digitally and [...] with a moderate diffuse encephalopathy. [facility] EEG AWAKE, ROUTINEOrdered By : Cecil Yu on 09-23-2023 [facility] Work Phone: GLUCOSE (POC DEVICE)on 09-23 GLUCOSE, POINT OF CARE 149 High [facility] Interpretation and review of laboratory results Abnormal [facility] Operator [phone] [facility] GLUCOSE, POINT OF CARE 149 High [facility] Interpretation and review of laboratory results Abnormal [facility] Operator [id number] [facility] GLUCOSE, POINT OF CARE 136 High [facility] Interpretation and review of laboratory results Abnormal [facility] Operator [phone] [facility] GLUCOSE, POINT OF CARE 91 [facility] Operator [phone] [facility] GLUCOSE, POINT OF CARE 85 [facility] Machine Plaster Mixer [id number] [facility] GLUCOSE, POINT OF CARE 86 [facility] Operator [id number] [facility] MAGNESIUMon 09-23-2023 Magnesium [Mass/Vol] 1.9 mg/dL Normal 1.6-2.3 [facility] Magnesium [Mass/Vol] 1.9 mg/dL [facility] No Panel Informationon 09-23 Interpretation and review of laboratory results Abnormal [facility] POCT GLUCOSEon 09-23-2023 Glucose [Mass/Vol] 149 mg/dL High 70-100 [facility] MRI MANAGER [id number] Normal [facility] Glucose [Mass/Vol] 149 mg/dL High 70-100 [facility] MRI MANAGER [id number] Normal [facility] Glucose [Mass/Vol] 136 mg/dL High 70-100 [facility] MRI MANAGER [id number] Normal [facility] Glucose [Mass/Vol] 91 mg/dL Normal 70-100 [facility] MRI MANAGER [id number] Normal [facility] Glucose [Mass/Vol] 85 mg/dL Normal 70-100 [facility] MRI MANAGER [id number] Normal [facility] Glucose [Mass/Vol] 86 mg/dL Normal 70-100 [facility] MRI MANAGER [id number] Normal [facility] Glucose [Mass/Vol] 79 mg/dL Normal 70-100 [facility] Glucose [Mass/Vol] 89 mg/dL Normal 70-100 [facility] MRI MANAGER [id number] Normal [facility] MRI MANAGER [id number] Normal [facility] RENAL FUNCTION PANELon 09-23 Albumin [Mass/Vol] 3.5 G/dl 3.5 - 5.0 G/dl [facility] Calcium [Mass/Vol] 8.1 mg/dL Low [facility] Chloride [Moles/Vol] 112 mmol/L High [facility] Comment on above: Please note: Triglyc eride levels of 600mg/dL or higher may positively bias chloride results by approximately 2.1 mmol CO2 [Moles/Vol] 23 mmol/L [facility] Creatinine [Mass/Vol] 1.10 mg/dL [facility] GFR COMMENT Average GFR for 40-4 9 years old = 99. [facility] Comment on above: Chronic Kidney disea se, GFR = <60. Kidney failure, GFR = <15. The GFR estimate is not adjusted for extreme body surface area or acute process, nor has it been validated for women or ethnic groups other than and . GFR/1.73 sq M.predicted among blacks MDRD (S/P/Bld) [Vol rate/Area] 92 mL/min/{1.73_m2} ml/min/1.73s q.m [facility] GFR/1.73 sq M.predicted among non-blacks MDRD (S/P/Bld) [Vol rate/Area] 76 mL/min/{1.73_m2} ml/min/1.73s q.m [facility] Glucose post fast [Mass/Vol] 68 mg/dL Low [facility] Comment on above: NORMAL <100 mg/dL PREDIABETES 101-126 mg/dL DIABETES 126 mg/dL or higher Phosphate [Mass/Vol] 2.6 mg/dL [facility] Potassium [Moles/Vol] 3.6 mmol/L [facility] Sodium [Moles/Vol] 140 mmol/L [facility] Urea nitrogen [Mass/Vol] 22 mg/dL High [facility] RENAL PANEL,FASTINGon 2022 ALBUMIN 3.5 G/dl Normal 3.5-5.0 [facility] Calcium [Mass/Vol] 8.1 mg/dL Low 8.4-10.2 [facility] [facility] Chloride [Moles/Vol] 112 mmol/L High 98-107 [facility] Comment on above: Result Comment: Juana spencer note: Triglyceride levels of 600mg/dL or higher may positively bias chloride results by approximately 2.1 mmol CO2 [Moles/Vol] 23 mmol/L Normal 22-30 [facility] Creatinine [Mass/Vol] 1.10 mg/dL Normal 0.7-1.2 [facility] EST. GFR, 92 ml/min/1.73sq.m [facility] EST. GFR,Non 76 ml/min/1.73sq.m [facility] GFR Information Average GFR for 40-4 9 years old = 99. Normal [facility] Comment on above: Result Comment: Ballistic Expert alfreda Kidney disease, GFR = <60. Kidney failure, GFR = <15. The GFR estimate is not adjusted for extreme body surface area or acute process, nor has it been validated for women or ethnic groups other than and . Glucose [Mass/Vol] 68 mg/dL Low 70-100 [facility] Comment on above: Result Comment: NORMAL <100 mg/dL PREDIABETES 101-126 mg/dL DIABETES 126 mg/dL or higher PHOSPHOROUS 2.6 MG/DL Normal 2.5-4.5 [facility] Potassium [Moles/Vol] 3.6 mmol/L Normal 3.5-5.1 [facility] Sodium [Moles/Vol] 140 mmol/L Normal 137-145 [facility] Urea nitrogen [Mass/Vol] 22 mg/dL High 7-20 [facility] URINE CULTUREon 09-23-2023 Bacteria identified Cx Nom (Unsp spec) NO GROWTH 2 DAYS [facility] Comment on above: Testing performed at [place] [address] Service comment (Unsp spec) [Interp] 09/23/2023 [facility] Comment on above: FINAL SPECIMEN DESCRIPTION URINE - OTHER A [facility] AMMONIAon 09-22-2023 Ammonia (P) [Moles/Vol] 42 umol/L High - [facility] Ammonia (P) [Mass/Vol] 42 ug/dL High [facility] Interpretation and review of laboratory results Abnormal [facility] ARTERIAL BLOOD GASon 023 JODY'S TEST NOT APPLICABLE Normal [facility] BASE DEFICIT 1.1 mEq/L Normal 0-2 [facility] cHCO3 (P,ST)C 23.5 mEq/L Normal 22-26 [facility] ctHb 12.2 g/dl Normal [facility] FCOHb 0.3 % Normal [facility] FMetHb 0.8 % Normal [facility] FO2Hb 97.8 % Normal [facility] O2 DEVICE VENT Normal [facility] PATIENT DIAGNOSIS RESPIRATORY FAILURE Normal [facility] PATIENT O2 SETTINGS 30% Normal [facility] pCO2, arterial 38 mmHg Normal 35-[address] [facility] pH, arterial 7.40 Normal 7.350-7.450 [facility] pO2,arterial 150 mmHg High 80-100 [facility] SAMPLE SITE RIGHT BRACHIAL Normal [facility] sO2,arterial 98.9 % Normal 95-100 [facility] Arterial patency Wrist artery --pre arterial puncture NOT APPLICABLE [facility] Base deficit (BldV) [Moles/Vol] 1.1 [facility] Carboxyhemoglobin (Bld) [Mass fraction] 0.3 % [facility] CO2 (Bld) [Partial pressure] 38 mm[Hg] [facility] Diagnosis Narrative RESPIRATORY FAILURE [facility] HCO3 (Bld) [Moles/Vol] 23.5 mmol/L A [facility] Hemoglobin (Bld) [Mass/Vol] 12.2 g/dL [facility] Interpretation and review of laboratory results Abnormal [facility] Methemoglobin (BldC) [Mass fraction] 0.8 % [facility] O2 Device VENT [facility] Oxygen (Bld) [Partial pressure] 150 mm[Hg] High [facility] Oxyhemoglobin (Bld) [Mass fraction] 97.8 % [facility] PATIENT PO2 SETTINGS 30% [facility] pH (Bld) 7.40 [pH] 7.350 - 7.450 [facility] Specimen site Narrative RIGHT BRACHIAL [facility] C REACTIVE PROTEINon 023 CRP [Mass/Vol] 18.1 mg/L High 0-[address] [facility] CRP [Mass/Vol] 18.1 mg/L High 0 - 10 MG/L [facility] CBCon 09-22-2023 ABSOLUTE BAS 0.0 10*3/uL Normal 0.0-0.2 [facility] ABSOLUTE EOS 0.1 10*3/uL Normal 0.0-0.7 [facility] ABSOLUTE NEUTROPHIL COUNT 8.5 10*3/uL High 1.4-6.5 [facility] Basophils/100 WBC (Bld) 0.3 % Normal 0.0-2.0 [facility] DTYPE AUTO DIFF Normal [facility] Eosinophils/100 WBC (Bld) 0.5 % Normal 0.0-11.0 [facility] Lymphocytes (Bld) [#/Vol] 1.4 10*3/uL Normal 1.2-3.4 [facility] Lymphocytes/100 WBC (Bld) 12.4 % Low 20.0-55.0 [facility] Monocytes (Bld) [#/Vol] 1.0 10*3/uL High 0.0-0.7 [facility] Monocytes/100 WBC (Bld) 9.1 % Normal 0.0-10.0 [facility] Neutrophils/100 WBC (Bld) 77.7 % High 37.0-75.0 [facility] Erythrocyte distribution width (RBC) [Ratio] 14.1 % Normal 11.5-14.5 [facility] Hematocrit (Bld) [Volume fraction] 38.0 % Low 42.0-52.0 [facility] Comment on above: Result Comment: IV F LUIDS Hemoglobin (Bld) [Mass/Vol] 12.7 g/dL Low 14.0-18.0 [facility] Comment on above: Result Comment: iv f luids MCH (RBC) [Entitic mass] 28.9 pg Normal 26.0-35.0 [facility] MCHC (RBC) [Mass/Vol] 33.4 g/dL Normal 27.0-37.0 [facility] MCV (RBC) [Entitic vol] 86.7 fL Normal 80.0-100.0 [facility] Platelet mean volume (Bld) [Entitic vol] 8.5 fL Normal 7.4-11.0 [facility] Platelets (Bld) [#/Vol] 151 10*3/uL Normal 130-400 [facility] RBC (Bld) [#/Vol] 4.39 10*6/uL Normal 4.0-6.1 [facility] WBC (Bld) [#/Vol] 11.0 10*3/uL Normal 3.6-11.0 [facility] CBC, EDIF, PLATELETon 2022 ABSOLUTE BASOPHIL COUNT 0.0 10*3/uL 0.0 - 0.2 10*3/uL [facility] Basophils/100 WBC (Bld) 0.3 % 0.0 - 2.0 % [facility] Differential cell count method Nom (Bld) AUTO DIFF % [facility] Eosinophils (Bld) [#/Vol] 0.1 10*3/uL 0.0 - 0.7 10*3/uL [facility] Eosinophils/100 WBC (Bld) 0.5 % 0.0 - 11.0 % [facility] Erythrocyte distribution width (RBC) [Ratio] 14.1 % 11.5 - 14.5 % [facility] Hematocrit (Bld) [Volume fraction] 38.0 % Low 42.0 - 52.0 % [facility] Comment on above: IV FLUIDS Hemoglobin (Bld) [Mass/Vol] 12.7 g/dL Low [facility] Comment on above: iv fluids Interpretation and review of laboratory results Abnormal [facility] Lymphocytes (Bld) [#/Vol] 1.4 10*3/uL 1.2 - 3.4 10*3/uL [facility] Lymphocytes/100 WBC (Bld) 12.4 % Low 20.0 - 55.0 % [facility] MCH (RBC) [Entitic mass] 28.9 pg 26.0 - 35.0 PG [facility] MCHC (RBC) [Mass/Vol] 33.4 g/dL [facility] MCV (RBC) [Entitic vol] 86.7 fL [facility] Monocytes (Bld) [#/Vol] 1.0 10*3/uL High 0.0 - 0.7 10*3/uL [facility] Monocytes/100 WBC (Bld) 9.1 % 0.0 - 10.0 % [facility] Neutrophils (Bld) [#/Vol] 8.5 10*3/uL High 1.4 - 6.5 10*3/uL [facility] Neutrophils/100 WBC (Bld) 77.7 % High 37.0 - 75.0 % [facility] Platelet mean volume (Bld) [Entitic vol] 8.5 fL [facility] Platelets (Bld) [#/Vol] 151 10*3/uL 130 - 400 10*3/uL [facility] RBC (Bld) [#/Vol] 4.39 10*6/uL 4.0 - 6.1 10*6/uL [facility] WBC (Bld) [#/Vol] 11.0 10*3/uL 3.6 - 11.0 10*3/uL [facility] CKon 09-22-2023 CK [Catalytic activity/Vol] 282 U/L High [facility] CMP FASTINGon 09-22-2023 A:G RATIO 1.3 RATIO Normal 1.3-2.2 [facility] ALBUMIN 3.4 G/dl Low 3.5-5.0 [facility] ALP [Catalytic activity/Vol] 76 U/L Normal 38-126 [facility] ALT [Catalytic activity/Vol] 25 U/L Normal <50 [facility] AST [Catalytic activity/Vol] 35 U/L Normal 17-59 [facility] Bilirubin [Mass/Vol] 0.4 mg/dL Normal 0.2-1.3 [facility] Calcium [Mass/Vol] 8.2 mg/dL Low 8.4-10.2 [facility] Chloride [Moles/Vol] 109 mmol/L High 98-107 [facility] Comment on above: Result Comment: Juana spencer note: Triglyceride levels of 600mg/dL or higher may positively bias chloride results by approximately 2.1 mmol CO2 [Moles/Vol] 23 mmol/L Normal 22-30 [facility] Creatinine [Mass/Vol] 1.40 mg/dL High 0.7-1.2 [facility] EST. GFR, 69 ml/min/1.73sq.m [facility] EST. GFR,Non 57 ml/min/1.73sq.m [facility] GFR Information Average GFR for 40-4 9 years old = 99. Normal [facility] Comment on above: Result Comment: Ballistic Expert alfreda Kidney disease, GFR = <60. Kidney failure, GFR = <15. The GFR estimate is not adjusted for extreme body surface area or acute process, nor has it been validated for women or ethnic groups other than and . Glucose [Mass/Vol] 72 mg/dL Normal 70-100 [facility] Comment on above: Result Comment: NORMAL <100 mg/dL PREDIABETES 101-126 mg/dL DIABETES 126 mg/dL or higher Potassium [Moles/Vol] 4.2 mmol/L Normal 3.5-5.1 [facility] Protein [Mass/Vol] 6.0 g/dL Low 6.3-8.2 [facility] Sodium [Moles/Vol] 138 mmol/L Normal 137-145 [facility] Urea nitrogen [Mass/Vol] 35 mg/dL High 7-20 [facility] COMPREHENSIVE METABOLIC PANE Jt 09-22-2023 Albumin [Mass/Vol] 3.4 G/dl Low 3.5 - 5.0 G/dl [facility] Albumin/Globulin [Mass ratio] 1.3 {ratio} [facility] ALP [Catalytic activity/Vol] 76 U/L [facility] ALT [Catalytic activity/Vol] 25 U/L NINF [facility] AST [Catalytic activity/Vol] 35 U/L [facility] Bilirubin [Mass/Vol] 0.4 mg/dL [facility] Calcium [Mass/Vol] 8.2 mg/dL Low [facility] Chloride [Moles/Vol] 109 mmol/L High [facility] Comment on above: Please note: Triglyc eride levels of 600mg/dL or higher may positively bias chloride results by approximately 2.1 mmol CO2 [Moles/Vol] 23 mmol/L [facility] Creatinine [Mass/Vol] 1.40 mg/dL High [facility] GFR COMMENT Average GFR for 40-4 9 years old = 99. [facility] Comment on above: Chronic Kidney disea se, GFR = <60. Kidney failure, GFR = <15. The GFR estimate is not adjusted for extreme body surface area or acute process, nor has it been validated for women or ethnic groups other than and . GFR/1.73 sq M.predicted among blacks MDRD (S/P/Bld) [Vol rate/Area] 69 mL/min/{1.73_m2} ml/min/1.73s q.m [facility] GFR/1.73 sq M.predicted among non-blacks MDRD (S/P/Bld) [Vol rate/Area] 57 mL/min/{1.73_m2} ml/min/1.73s q.m [facility] Glucose post fast [Mass/Vol] 72 mg/dL [facility] Comment on above: NORMAL <100 mg/dL PREDIABETES 101-126 mg/dL DIABETES 126 mg/dL or higher Interpretation and review of laboratory results Abnormal [facility] Potassium [Moles/Vol] 4.2 mmol/L [facility] Protein [Mass/Vol] 6.0 g/dL Low [facility] Sodium [Moles/Vol] 138 mmol/L [facility] Urea nitrogen [Mass/Vol] 35 mg/dL High [facility] CPKon 09-22-2023 CPK 282 IU/L High 55-170 [facility] ESRon 09-22-2023 ESR (Bld) [Velocity] 21 mm/h High 0-15 [facility] GLUCOSE (POC DEVICE)on 09-22 GLUCOSE, POINT OF CARE [address] [facility] GLUCOSE, POINT OF CARE [address] [facility] Machine Plaster Mixer [id number] [facility] Machine Plaster Mixer [id number] [facility] GLUCOSE, POINT OF CARE [address] [facility] Machine Plaster Mixer [id number] [facility] GLUCOSE, POINT OF CARE [address] [facility] Machine Plaster Mixer [id number] [facility] GLUCOSE, POINT OF CARE [address] [facility] Interpretation and review of laboratory results Abnormal [facility] Operator [id number] [facility] GLUCOSE, POINT OF CARE [address] [facility] Machine Plaster Mixer [id number] [facility] GLUCOSE, POINT OF CARE [address] [facility] GLUCOSE, POINT OF CARE [address] [facility] Incentive Targeting System Interpretation and review of laboratory results Abnormal [facility] Machine Plaster Mixer [id number] [facility] Machine Plaster Mixer [id number] [facility] HEMOGLOBIN A1Con 09-22-2023 Glucose [Mass/Vol] 280 mg/dL Normal [facility] HbA1c (Bld) [Mass fraction] 11.4 % High 0-6 [facility] Comment on above: Result Comment: NORMAL <5.7% PREDIABETES 5.7-6.4% DIABETES 6.5% OR HIGHER Glucose [Mass/Vol] 280 mg/dL [facility] HbA1c (Bld) [Mass fraction] 11.4 % High 0 - 6 % [facility] Comment on above: NORMAL <5.7% PREDIABETES 5.7-6.4% DIABETES 6.5% OR HIGHER Interpretation and review of laboratory results Abnormal [facility] MAGNESIUMon 09-22-2023 Magnesium [Mass/Vol] 2.0 mg/dL Normal 1.6-2.3 [facility] Magnesium [Mass/Vol] 2.0 mg/dL [facility] MR Brain WO contraston 09-22 IMPRESSION: [...] Major vascular flow voids are preserved. OTHER: Klnp-uw-[id number] sphenoid sinus mucosal inflammatory change, + polypoidal [...] Major vascular flow voids are preserved. OTHER: Uoeq-tf-emsxeezl sphenoid sinus mucosal inflammatory change, + polypoidal features on the right. __ IMPRESSION IMPRESSION: No infarct, mass or hemorrhage [facility] Radiology Study observation (narrative) [facility] MR Brain WO contrastOrdered By: Eduin De León on 09-22-2023 [facility] Work Phone: MRI BRAIN WITHOUT CONTRASTon [...] Major vascular flow voids are preserved. OTHER: Bqqq-rs-vzbslpgn sphenoid sinus mucosal inflammatory change, + polypoidal features on the right. __ IMPRESSION: No infarct, mass or hemorrhage Normal [facility] MRSA SCREENon 09-22-2023 MRSA DNA MEETA+probe Ql (Unsp spec) Negative Normal NEGATIVE [facility] STAPH AUREUS SCREEN Positive Abnormal NEGATIVE [facility] Comment on above: Result Comment: TEST ING PERFORMED BY PCR No Panel Informationon 09-22 [facility] Interpretation and review of laboratory results Abnormal [facility] POCT GLUCOSEon 09-22-2023 Glucose [Mass/Vol] 98 mg/dL Normal 70-100 [facility] MRI MANAGER [id number] Normal [facility] Glucose [Mass/Vol] 73 mg/dL Normal 70-100 [facility] MRI MANAGER [id number] Normal [facility] Glucose [Mass/Vol] 67 mg/dL Low 70-100 [facility] MRI MANAGER [id number] Normal [facility] Glucose [Mass/Vol] 80 mg/dL Normal 70-100 [facility] MRI MANAGER [id number] Normal [facility] Glucose [Mass/Vol] 95 mg/dL Normal 70-100 [facility] Glucose [Mass/Vol] 109 mg/dL High 70-100 [facility] MRI MANAGER [id number] Normal [facility] MRI MANAGER [id number] Normal [facility] Glucose [Mass/Vol] 158 mg/dL High 70-100 [facility] MRI MANAGER [id number] Normal [facility] PROCALCITONINon 12-07-2023 PROCALCITONIN 0.08 ng/mL Normal 0.00-0.25 [facility] Comment on above: Result Comment: PCT Interpretation Less than 0.10 ng/mL, antibiotic therapy strongly discouraged. 0.10-0.25 ng/mL, antibiotic therapy discouraged. 0.25-0.50 ng/mL, antibiotic therapy encouraged. Greater than 0.50 ng/mL, antibiotic therapy strongly encouraged. PROCALCITONIN 0.08 ng/mL 0.00 - 0.25 ng/mL [facility] Comment on above: PCT Interpretation Less than 0.10 ng/mL, antibiotic therapy strongly discouraged. 0.10-0.25 ng/mL, antibiotic therapy discouraged. 0.25-0.50 ng/mL, antibiotic therapy encouraged. Greater than 0.50 ng/mL, antibiotic therapy strongly encouraged. [facility] RAPID TOX SCREEN,URINEon AMPHETAMINE Negative Normal NEGATIVE [facility] Comment on above: Result Comment: <500 ng/ml CUTOFF BARBITURATES Negative Normal NEGATIVE [facility] Comment on above: Result Comment: <200 ng/ml CUTOFF BENZODIAZEPINES Positive Abnormal NEGATIVE [facility] Comment on above: Result Comment: <200 ng/ml CUTOFF *Unconfirmed Screening Result* Unconfirmed screening results are to be used only for medical treatment purposes. BUPRENORPHINE Negative Normal NEGATIVE [facility] Comment on above: Result Comment: <12. 5 ng/ml CUTOFF CANNABINOIDS Negative Normal NEGATIVE [facility] Comment on above: Result Comment: <50 ng/ml CUTOFF COCAINE Negative Normal NEGATIVE [facility] Comment on above: Result Comment: <150 ng/ml CUTOFF FENTANYL Negative Normal NEGATIVE [facility] Comment on above: Result Comment: 20 n g/mL CUTOFF *Unconfirmed Screening Result* Unconfirmed screening results are to be used only for medical treatment purposes. This test has not been approved by the FDA. MDMA Positive Abnormal NEGATIVE [facility] Comment on above: Result Comment: <100 0 ng/ml CUTOFF METHADONE Negative Normal NEGATIVE [facility] Comment on above: Result Comment: Meth adone Metabolite <100 ng/ml CUTOFF METHAMPHETAMINE Negative Normal NEGATIVE [facility] Comment on above: Result Comment: <500 ng/ml CUTOFF OPIATES Negative Normal NEGATIVE [facility] Comment on above: Result Comment: <300 ng/ml CUTOFF OXYCODONE Negative Normal NEGATIVE [facility] Comment on above: Result Comment: <100 ng/ml CUTOFF TRICYCLIC ANTIDEPRESSANTS Negative Normal NEGATIVE [facility] Comment on above: Result Comment: <100 0 ng/ml CUTOFF RESPIRATORY SYNCYTIAL VIRUS PCRon 09-22-2023 RSV Ag IA Ql (Unsp spec) Negative NEGATIVE [facility] RSVon 09-22-2023 RSV Negative Normal NEGATIVE [facility] SEDIMENTATION RATE, AUTOMATE Don 09-22-2023 ESR (Bld) [Velocity] 21 mm/h [facility] Interpretation and review of laboratory results Abnormal [facility] TOXICOLOGY DRUG SCREEN, URIN Harpreet 09-22-2023 Amphetamine (U) [Mass/Vol] Negative NEGATIVE NG/ML [facility] Comment on above: <500 ng/ml CUTOFF Barbiturates Screen Ql (U) Negative NEGATIVE NG/ML [facility] Comment on above: <200 ng/ml CUTOFF Benzodiazepines Ql (U) Positive Abnormal NEGAT RAJAN NG/ML [facility] Comment on above: <200 ng/ml CUTOFF *Unconfirmed Screening Result* Unconfirmed screening results are to be used only for medical treatment purposes. Benzoylecgonine Ql (U) Negative NEGAT RAJAN NG/ML [facility] Comment on above: <150 ng/ml CUTOFF Buprenorphine Ql (U) Negative NEGATIV E NG/ML [facility] Comment on above: <12.5 ng/ml CUTOFF Cannabinoids Screen Ql (U) Negative NEGATIVE NG/ML [facility] Comment on above: <50 ng/ml CUTOFF Fentanyl Negative NEGATIVE NG/ML [facility] Comment on above: 20 ng/mL CUTOFF *Unconfirmed Screening Result* Unconfirmed screening results are to be used only for medical treatment purposes. This test has not been approved by the FDA. Interpretation and review of laboratory results Abnormal [facility] Methadone Screen Ql (U) Negative NEGATIVE NG/ML [facility] Comment on above: Methadone Metabolite <100 ng/ml CUTOFF Methamphetamine (U) [Mass/Vol] Negative NEGATIVE NG/ML [facility] Incentive Targeting [facility] Comment on above: <500 ng/ml CUTOFF Methylenedioxymethamph etamine Ql (Unsp spec) Positive Abnormal NEGATIVE NG/ML [facility] Comment on above: <1000 ng/ml CUTOFF Opiates Screen Ql (U) Negative NEGATI VE NG/ML [facility] Comment on above: <300 ng/ml CUTOFF oxyCODONE Ql (U) Negative NEGATIVE NG/ML [facility] Comment on above: <100 ng/ml CUTOFF Tricyclic antidepressants Screen Ql (U) Negative NEGATIVE NG/ML [facility] Comment on above: <1000 ng/ml CUTOFF [facility] TROPONIN I, HIGH SENSITIVITY on 09-22-2023 TROPONIN I, HIGH SENSITIVITY 28 pg/mL High 0-20 [facility] Comment on above: Result Comment: Indeterminant: >12 to 100 pg/mL female >20 to 100 pg/mL male Indicative of myocardial injury. Serial sampling is recommended, a change of greater than or equal to 20 pg/mL is indicative of acute coronary syndrome. Interpretation and review of laboratory results Abnormal [facility] TROPONIN I, HIGH SENSITIVITY 28 pg/mL High 0 - 20 pg/mL [facility] Comment on above: Indeterminant: >12 to 100 pg/mL female >20 to 100 pg/mL male Indicative of myocardial injury. Serial sampling is recommended, a change of greater than or equal to 20 pg/mL is indicative of acute coronary syndrome. [facility] TSH W/FT4 REFLEXon 3 TSH Qn 0.594 m[IU]/L [facility] TSH,REFLEX FREE T4on 023 TSH,REFLEX FREE T4 0.594 uIU/ML Normal 0.46-4.68 [facility] VENTILATOR SETTINGSon 2022 fiO2 30% [facility] PEEP 5 cmH2O [facility] PRESSURE SUPPORT 5 cmH2O Normal [facility] VENT SETTING PS [facility] BIPAP AndOr CPAP setting Ventilator PS [facility] Oxygen/Inspired gas setting [Volume Fraction] Ventilator 30% % [facility] Positive end expiratory pressure setting Ventilator 5 cmH2O [facility] Pressure support setting Ventilator 5 cmH2O [facility] ALCOHOLon 09-21-2023 Ethanol [Mass/Vol] mg/dL Normal 0-10 [facility] Comment on above: Result Comment: INTOXICATION >80 MG/DL FATAL >400 MG/DL ALCOHOL (ETHANOL),BLOODon Ethanol [Mass/Vol] mg/dL [facility] Comment on above: INTOXICATION >80 MG/DL FATAL >400 MG/DL ARTERIAL BLOOD GASon 023 BASE EXCESS 1.3 mEq/L Normal 0-2 [facility] cHCO3 (P,ST)C 25.9 mEq/L Normal 22-26 [facility] ctHb 14.1 g/dl Normal [facility] FCOHb 0.6 % Normal [facility] FMetHb 0.5 % Normal [facility] FO2Hb 98.7 % Normal [facility] pCO2, arterial 40 mmHg Normal 35-[address] [facility] pH, arterial 7.42 Normal 7.350-7.450 [facility] pO2,arterial 492 mmHg High 80-100 [facility] sO2,arterial 99.9 % Normal 95-100 [facility] Base excess Calc (BldV) [Moles/Vol] 1.3 mmol/L [facility] Carboxyhemoglobin (Bld) [Mass fraction] 0.6 % [facility] CO2 (Bld) [Partial pressure] 40 mm[Hg] [facility] HCO3 (Bld) [Moles/Vol] 25.9 mmol/L A [facility] Hemoglobin (Bld) [Mass/Vol] 14.1 g/dL [facility] Interpretation and review of laboratory results Abnormal [facility] Methemoglobin (BldC) [Mass fraction] 0.5 % [facility] Oxygen (Bld) [Partial pressure] 492 mm[Hg] High [facility] Oxyhemoglobin (Bld) [Mass fraction] 98.7 % [facility] pH (Bld) 7.42 [pH] 7.350 - 7.450 [facility] BLOOD CULTUREon 09-21-2023 Bacteria identified Cx Nom (Bld) SPECIMEN DESCRIPTION PERIPHERAL BLOOD DRAW SPECIAL REQUESTS LEFT HAND CULTURE NO GROWTH 5 DAYS * Result Note: Testing performed at [place], [place] [address] * REPORT STATUS 09/26/2023 * Result Note: FINAL * Normal [facility] Comment on above: Performed By: #### L HSV #### Testing performed at [facility] Bacteria identified Cx Nom (Bld) SPECIMEN DESCRIPTION PERIPHERAL BLOOD DRAW SPECIAL REQUESTS LEFT ARM CULTURE NO GROWTH 5 DAYS * Result Note: Testing performed at [place], [place] [address] * REPORT STATUS 09/26/2023 * Result Note: FINAL * Normal [facility] Comment on above: Performed By: #### L HSV #### Testing performed at [facility] CBCon 09-21-2023 ABSOLUTE BAS 0.0 10*3/uL Normal 0.0-0.2 [facility] ABSOLUTE EOS 0.0 10*3/uL Normal 0.0-0.7 [facility] ABSOLUTE NEUTROPHIL COUNT 9.8 10*3/uL High 1.4-6.5 [facility] Basophils/100 WBC (Bld) 0.2 % Normal 0.0-2.0 [facility] DTYPE AUTO DIFF Normal [facility] Eosinophils/100 WBC (Bld) 0.2 % Normal 0.0-11.0 [facility] Lymphocytes (Bld) [#/Vol] 0.6 10*3/uL Low 1.2-3.4 [facility] Lymphocytes/100 WBC (Bld) 5.6 % Low 20.0-55.0 [facility] Monocytes (Bld) [#/Vol] 0.3 10*3/uL Normal 0.0-0.7 [facility] Monocytes/100 WBC (Bld) 3.0 % Normal 0.0-10.0 [facility] Neutrophils/100 WBC (Bld) 91.0 % High 37.0-75.0 [facility] Erythrocyte distribution width (RBC) [Ratio] 14.3 % Normal 11.5-14.5 [facility] Hematocrit (Bld) [Volume fraction] 42.6 % Normal 42.0-52.0 [facility] Hemoglobin (Bld) [Mass/Vol] 14.5 g/dL Normal 14.0-18.0 [facility] MCH (RBC) [Entitic mass] 29.1 pg Normal 26.0-35.0 [facility] MCHC (RBC) [Mass/Vol] 34.0 g/dL Normal 27.0-37.0 [facility] MCV (RBC) [Entitic vol] 85.6 fL Normal 80.0-100.0 [facility] Platelet mean volume (Bld) [Entitic vol] 8.5 fL Normal 7.4-11.0 [facility] Platelets (Bld) [#/Vol] 176 10*3/uL Normal 130-400 [facility] RBC (Bld) [#/Vol] 4.98 10*6/uL Normal 4.0-6.1 [facility] WBC (Bld) [#/Vol] 10.8 10*3/uL Normal 3.6-11.0 [facility] CBC, EDIF, PLATELETon 2022 ABSOLUTE BASOPHIL COUNT 0.0 10*3/uL 0.0 - 0.2 10*3/uL [facility] Basophils/100 WBC (Bld) 0.2 % 0.0 - 2.0 % [facility] Differential cell count method Nom (Bld) AUTO DIFF % [facility] Eosinophils (Bld) [#/Vol] 0.0 10*3/uL 0.0 - 0.7 10*3/uL [facility] Eosinophils/100 WBC (Bld) 0.2 % 0.0 - 11.0 % [facility] Erythrocyte distribution width (RBC) [Ratio] 14.3 % 11.5 - 14.5 % [facility] Hematocrit (Bld) [Volume fraction] 42.6 % 42.0 - 52.0 % [facility] Hemoglobin (Bld) [Mass/Vol] 14.5 g/dL [facility] Interpretation and review of laboratory results Abnormal [facility] Lymphocytes (Bld) [#/Vol] 0.6 10*3/uL Low 1.2 - 3.4 10*3/uL [facility] Lymphocytes/100 WBC (Bld) 5.6 % Low 20.0 - 55.0 % [facility] MCH (RBC) [Entitic mass] 29.1 pg 26.0 - 35.0 PG [facility] MCHC (RBC) [Mass/Vol] 34.0 g/dL [facility] MCV (RBC) [Entitic vol] 85.6 fL [facility] Monocytes (Bld) [#/Vol] 0.3 10*3/uL 0.0 - 0.7 10*3/uL [facility] Monocytes/100 WBC (Bld) 3.0 % 0.0 - 10.0 % [facility] Neutrophils (Bld) [#/Vol] 9.8 10*3/uL High 1.4 - 6.5 10*3/uL [facility] Neutrophils/100 WBC (Bld) 91.0 % High 37.0 - 75.0 % [facility] Platelet mean volume (Bld) [Entitic vol] 8.5 fL [facility] Platelets (Bld) [#/Vol] 176 10*3/uL 130 - 400 10*3/uL [facility] RBC (Bld) [#/Vol] 4.98 10*6/uL 4.0 - 6.1 10*6/uL [facility] WBC (Bld) [#/Vol] 10.8 10*3/uL 3.6 - 11.0 10*3/uL [facility] CMP FASTINGon 09-21-2023 A:G RATIO 1.5 RATIO Normal 1.3-2.2 [facility] ALBUMIN 4.4 G/dl Normal 3.5-5.0 [facility] ALP [Catalytic activity/Vol] 103 U/L Normal 38-126 [facility] ALT [Catalytic activity/Vol] 34 U/L Normal <50 [facility] AST [Catalytic activity/Vol] 39 U/L Normal 17-59 [facility] Bilirubin [Mass/Vol] 0.6 mg/dL Normal 0.2-1.3 [facility] Calcium [Mass/Vol] 9.0 mg/dL Normal 8.4-10.2 [facility] Chloride [Moles/Vol] 103 mmol/L Normal 98-107 [facility] Comment on above: Result Comment: Juana spencer note: Triglyceride levels of 600mg/dL or higher may positively bias chloride results by approximately 2.1 mmol CO2 [Moles/Vol] 24 mmol/L Normal 22-30 [facility] Creatinine [Mass/Vol] 1.30 mg/dL High 0.7-1.2 [facility] GFR Information Unable to calculate GFR due to inappropriate age/gender/creatinine value. Normal [facility] Glucose [Mass/Vol] 245 mg/dL High 70-100 [facility] Comment on above: Result Comment: NORMAL <100 mg/dL PREDIABETES 101-126 mg/dL DIABETES 126 mg/dL or higher Potassium [Moles/Vol] 4.0 mmol/L Normal 3.5-5.1 [facility] Protein [Mass/Vol] 7.3 g/dL Normal 6.3-8.2 [facility] Sodium [Moles/Vol] 135 mmol/L Low 137-145 [facility] Urea nitrogen [Mass/Vol] 37 mg/dL High 7-20 [facility] COMPREHENSIVE METABOLIC PANE Jt 09-21-2023 Albumin [Mass/Vol] 4.4 G/dl 3.5 - 5.0 G/dl [facility] Albumin/Globulin [Mass ratio] 1.5 {ratio} [facility] ALP [Catalytic activity/Vol] 103 U/L [facility] ALT [Catalytic activity/Vol] 34 U/L NINF [facility] AST [Catalytic activity/Vol] 39 U/L [facility] Bilirubin [Mass/Vol] 0.6 mg/dL [facility] Calcium [Mass/Vol] 9.0 mg/dL [facility] Chloride [Moles/Vol] 103 mmol/L [facility] Comment on above: Please note: Triglyc eride levels of 600mg/dL or higher may positively bias chloride results by approximately 2.1 mmol CO2 [Moles/Vol] 24 mmol/L [facility] Creatinine [Mass/Vol] 1.30 mg/dL High [facility] GFR COMMENT Unable to calculate GFR due to inappropriate age/gender/creatinine value. [facility] Glucose post fast [Mass/Vol] 245 mg/dL High [facility] Comment on above: NORMAL <100 mg/dL PREDIABETES 101-126 mg/dL DIABETES 126 mg/dL or higher Interpretation and review of laboratory results Abnormal [facility] Potassium [Moles/Vol] 4.0 mmol/L [facility] Protein [Mass/Vol] 7.3 g/dL [facility] Sodium [Moles/Vol] 135 mmol/L Low [facility] Urea nitrogen [Mass/Vol] 37 mg/dL High [facility] CT HEAD WITHOUT CONTRASTon 1 11-22-2022 [...] intracranial hemorrhage or other acute finding. Normal [facility] CT Head WO contraston 2022 [...] of intracranial hemorrhage or other acute finding. [facility] Radiology Study observation (narrative) [facility] CT Head WO contrastOrdered B y: Kris Cherry on 09-21-2023 [facility] Work Phone: CT SPINE CERVICAL WITHOUT [...] osseous abnormality. Degenerative changes detailed above. Normal [facility] GLUCOSE (POC DEVICE)on 09-21 GLUCOSE, POINT OF CARE [address] [facility] Interpretation and review of laboratory results Abnormal [facility] Operator [id number] [facility] GLUCOSE, POINT OF CARE [address] [facility] Interpretation and review of laboratory results Abnormal [facility] Operator [phone] [facility] LACTATE, BLOODon 09-21-2023 Interpretation and review of laboratory results Abnormal [facility] Lactate [Moles/Vol] 2.1 mmol/L Critically high 0.7 - 2.0 mmol/L [facility] Comment on above: PLEASE REPEAT INITIA L CRITICAL IN 3 HOURS IF ED OR INPATIENT SEPSIS PATIENT CALLED TO AND READ BACK BY SIRENA HERNANDEZ IN ER 12..23 1706 BY MAUREEN [facility] LACTATE,BLOODon 09-21-2023 Lactate [Moles/Vol] 2.1 mmol/L Critically high 0.7-2.0 [facility] Comment on above: Result Comment: PLEA SE REPEAT INITIAL CRITICAL IN 3 HOURS IF ED OR INPATIENT SEPSIS PATIENT CALLED TO AND READ BACK BY SIRENA HERNANDEZ IN ER 12.6.23 1706 BY MAUREEN MAGNESIUMon 09-21-2023 Magnesium [Mass/Vol] 2.0 mg/dL Normal 1.6-2.3 [facility] Magnesium [Mass/Vol] 2.0 mg/dL [facility] No Panel Informationon 09-21 Interpretation and review of laboratory results Abnormal [facility] POCT GLUCOSEon 09-21-2023 Glucose [Mass/Vol] 232 mg/dL High 70-100 [facility] MRI MANAGER [id number] Normal [facility] Portable XR Chest Views APon [...] tube. No acute cardiopulmonary abnormality. [facility] Radiology Study observation (narrative) [facility] Portable XR Chest Views APOr dered By: Deven Junior on 09-21-2023 [facility] Work Phone: RAPID TOX SCREEN,URINEon AMPHETAMINE Negative Normal NEGATIVE [facility] Comment on above: Result Comment: <500 ng/ml CUTOFF BARBITURATES Negative Normal NEGATIVE [facility] Comment on above: Result Comment: <200 ng/ml CUTOFF BENZODIAZEPINES Positive Abnormal NEGATIVE [facility] Comment on above: Result Comment: <200 ng/ml CUTOFF *Unconfirmed Screening Result* Unconfirmed screening results are to be used only for medical treatment purposes. BUPRENORPHINE Negative Normal NEGATIVE [facility] Comment on above: Result Comment: <12. 5 ng/ml CUTOFF CANNABINOIDS Negative Normal NEGATIVE [facility] Comment on above: Result Comment: <50 ng/ml CUTOFF COCAINE Negative Normal NEGATIVE [facility] Comment on above: Result Comment: <150 ng/ml CUTOFF FENTANYL Negative Normal NEGATIVE [facility] Comment on above: Result Comment: 20 n g/mL CUTOFF *Unconfirmed Screening Result* Unconfirmed screening results are to be used only for medical treatment purposes. This test has not been approved by the FDA. MDMA Positive Abnormal NEGATIVE [facility] Comment on above: Result Comment: <100 0 ng/ml CUTOFF METHADONE Negative Normal NEGATIVE [facility] Comment on above: Result Comment: Meth adone Metabolite <100 ng/ml CUTOFF METHAMPHETAMINE Negative Normal NEGATIVE [facility] Comment on above: Result Comment: <500 ng/ml CUTOFF OPIATES Negative Normal NEGATIVE [facility] Comment on above: Result Comment: <300 ng/ml CUTOFF OXYCODONE Negative Normal NEGATIVE [facility] Comment on above: Result Comment: <100 ng/ml CUTOFF TRICYCLIC ANTIDEPRESSANTS Negative Normal NEGATIVE [facility] Comment on above: Result Comment: <100 0 ng/ml CUTOFF SCREEN: MRSA ONLY, NARES (IS OLATION SCREEN)on 09-21-2023 Interpretation and review of laboratory results Abnormal [facility] MRSA isol Org specific cx Ql (Nose) Negative NEGATIVE [facility] STAPHYOCOCCUS AUREUS BY PCR Positive Abnormal NEGATIVE [facility] Comment on above: TESTING PERFORMED BY PCR [facility] TOXICOLOGY DRUG SCREEN, URIN Harpreet 09-21-2023 Amphetamine (U) [Mass/Vol] Negative NEGATIVE NG/ML [facility] Comment on above: <500 ng/ml CUTOFF Barbiturates Screen Ql (U) Negative NEGATIVE NG/ML [facility] Comment on above: <200 ng/ml CUTOFF Benzodiazepines Ql (U) Positive Abnormal NEGAT RAJAN NG/ML [facility] Comment on above: <200 ng/ml CUTOFF *Unconfirmed Screening Result* Unconfirmed screening results are to be used only for medical treatment purposes. Benzoylecgonine Ql (U) Negative NEGAT RAJAN NG/ML [facility] Comment on above: <150 ng/ml CUTOFF Buprenorphine Ql (U) Negative NEGATIV E NG/ML [facility] Comment on above: <12.5 ng/ml CUTOFF Cannabinoids Screen Ql (U) Negative NEGATIVE NG/ML [facility] Comment on above: <50 ng/ml CUTOFF Fentanyl Negative NEGATIVE NG/ML [facility] Comment on above: 20 ng/mL CUTOFF *Unconfirmed Screening Result* Unconfirmed screening results are to be used only for medical treatment purposes. This test has not been approved by the FDA. Interpretation and review of laboratory results Abnormal [facility] Methadone Screen Ql (U) Negative NEGATIVE NG/ML [facility] Comment on above: Methadone Metabolite <100 ng/ml CUTOFF Methamphetamine (U) [Mass/Vol] Negative NEGATIVE NG/ML [facility] Comment on above: <500 ng/ml CUTOFF Methylenedioxymethamph etamine Ql (Unsp spec) Positive Abnormal NEGATIVE NG/ML [facility] Comment on above: <1000 ng/ml CUTOFF Opiates Screen Ql (U) Negative NEGATI VE NG/ML [facility] Comment on above: <300 ng/ml CUTOFF oxyCODONE Ql (U) Negative NEGATIVE NG/ML [facility] Comment on above: <100 ng/ml CUTOFF Tricyclic antidepressants Screen Ql (U) Negative NEGATIVE NG/ML [facility] Comment on above: <1000 ng/ml CUTOFF [facility] URINALYSIS, MACROon 09-21-20 23 Bilirubin Ql (U) Negative NEGATIVE [facility] Clarity (U) CLEAR CLEAR [facility] Color (U) YELLOW YELLOW [facility] Glucose Test strip (U) [Mass/Vol] 500 mg/dl Abnormal NEGATIVE [facility] Hemoglobin Ql (U) MODERATE Abnormal NEGATIVE [facility] Ketones (U) [Mass/Vol] 15 mg/dL Abnormal NEGATIVE [facility] Leukocyte esterase Test strip Ql (U) Negative NEGATIVE [facility] Nitrite Ql (U) Negative NEGATIVE [facility] pH (U) 5.5 [pH] 5.0 - 7.0 [facility] Protein Ql (U) >300 Abnormal NEGATIVE mg/dl [facility] Specific gravity (U) [Rel density] >1.030 High 1.010 - 1.025 [facility] Urobilinogen (U) [Mass/Vol] 0.2 mg/dL [facility] URINE CULTUREon 09-21-2023 Bacteria identified Cx Nom (U) SPECIMEN DESCRIPTION URINE - OTHER CULTURE NO GROWTH 2 DAYS * Result Note: Testing performed at [place], [place] [address] * REPORT STATUS 09/23/2023 * Result Note: FINAL * Normal [facility] Comment on above: Performed By: #### A URNC #### Testing performed at [facility] [address] [place] [address] Testing performed at [facility] [address] [place] [address] URINE MACROSCOPICon 09-21-20 23 Bilirubin Ql (U) Negative Normal NEGATIVE [facility] Clarity (U) CLEAR Normal CLEAR [facility] Color (U) YELLOW Normal YELLOW [facility] Glucose Ql (U) 500 mg/dl Abnormal NEGATIVE [facility] pH (U) 5.5 [pH] Normal 5.0-7.0 [facility] URINE HEMOGLOBIN MODERATE Abnormal NEGATIVE [facility] URINE KETONE 15 mg/dl Abnormal NEGATIVE [facility] URINE LEUKOTEST Negative Normal NEGATIVE [facility] URINE NITRATES Negative Normal NEGATIVE [facility] URINE SPEC GRAVITY >1.030 High 1.010-1.025 [facility] URINE TOTAL PROTEIN >300 Abnormal NEGATIVE [facility] Urobilinogen Qn (U) 0.2 {Rachana'U}/dL Normal 0.2-1.0 [facility] URINE MICROSCOPICon 09-21-20 23 BACTERIA TRACE Abnormal NEGATIVE [facility] CASTS NONE Normal NONE [facility] CRYSTAL NONE Normal NONE [facility] Epithelial cells LM Ql (Urine sed) NONE Normal [facility] Mucus Ql (Urine sed) Negative Normal NEGATIVE [facility] URINE COMMENT REFLEX CULTURE PER ESTABLISHED CRITERIA. Normal [facility] URINE RBC'S 1 TO 5 Normal NEGATIVE [facility] URINE WBC'S Negative Normal NEGATIVE [facility] Bacteria LM.HPF (Urine sed) [#/Area] TRACE Abnormal NEGATIVE [facility] Casts LM.LPF (Urine sed) [#/Area] NONE NONE /LPF [facility] Crystals LM Nom (Urine sed) NONE NONE [facility] Epithelial cells LM Ql (Urine sed) NONE /HPF [facility] Mucus Ql (Urine sed) Negative NEGATIVE [facility] RBC LM.HPF (Urine sed) [#/Area] 1 TO 5 NEGATIVE /HPF [facility] Urine sediment comments LM Everardo (Urine sed) REFLEX CULTURE PER ESTABLISHED CRITERIA. [facility] WBC LM.HPF (Urine sed) [#/Area] Negative NEGATIVE /HPF [facility] VENTILATOR SETTINGSon 2022 F RATE 16 breaths/minute Normal [facility] fiO2 100 % Normal [facility] PEEP 5 cmH2O Normal [facility] VENT SETTING ACVC Normal [facility] VT 500 cc Normal [facility] BIPAP AndOr CPAP setting [facility]Inspired gas setting [Volume Fraction] Ventilator 100 % [facility] Positive end expiratory pressure setting Ventilator 5 cmH2O [facility] Respiratory rate 16 /min breaths/min u te [facility] Tidal volume setting Ventilator 500 cc [facility] XR CHEST AP PORTABLEon 09-21 XR CHEST AP PORTABLE EXAM: XR CHEST AP PORTABLE REASON FOR EXAM: ET placement TECHNIQUE: Single frontal view COMPARISON: None FINDINGS: Endotracheal tube terminates 3.4 cm above the ravindra. No pneumothorax, pleural effusion, or focal consolidation. The cardiac silhouette is not enlarged. IMPRESSION: Appropriate positioning of the endotracheal tube. No acute cardiopulmonary abnormality. Normal [facility] Diabetic Office/Clinic Noteo n 05-13-2023 [...] repeat rule of 15's. -Continue to eat 9992-1999 calories per day. Best to consume calories [...] blood sugar readings and call these to [phone] in 2 weeks for myself to review. Call sooner if you're experiencing frequent blood sugars <60 or >350. -Repeat A1c and appointment with myself in 3 months or sooner if needed Jarod Aviles CNP [facility] [address], [facility] [place] [address] Time Spent with the Patient I have [...] 0.5 mg, Subcutaneous, Weekly, 11 refills Pen Heyburn, See Instructions, 11 refills Toujeo Max SoloStar 300 units/mL subcutaneous solution, See Instructions, 11 refills Allergies No Known Medication Allergies Social History Alcohol Never Tobacco N (more content not included)... Normal [facility] Diabetic Office/Clinic Noteo n 02-11-2023 Diabetic [...] care Yes HTN, taking lisinopril No CAD, NH, CVA, CHF or PVD Statin indicated, taking [...] heart attack, stroke and limb amputation -Eat 2616-0452 calories per day or less using a [...] plate starchy vegetables or grains. Recommend using Localist or similar type pat to track daily [...] range > (more content not included)... Normal [facility] CBC AUTO DIFFon 12-28-2022 BASO # 0.0 103/ul Normal 0.0-0.1 [facility] Comment on above: Performed By: #### P OCGLUC #### [facility] [address] [place] [address] Dr. Karina Heath Basophils/100 WBC (Bld) 0.6 % Normal 0.2-2.0 [facility] Comment on above: Performed By: #### P OCGLUC #### [facility] [address] [place] [address] Dr. Karina Heath EO # 0.1 103/ul Normal 0.0-0.7 [facility] Comment on above: Performed By: #### P OCGLUC #### [facility] [address] [place] [address] Dr. Karina Heath Eosinophils/100 WBC (Bld) 1.1 % Normal 0.9-7.0 [facility] Comment on above: Performed By: #### P OCGLUC #### [facility] [address] [place] [address] Dr. Karina Heath Erythrocyte distribution width (RBC) [Ratio] 13.5 % Normal 11.0-15.0 [facility] Comment on above: Performed By: #### P OCGLUC #### [facility] [address] [place] [address] Dr. Karina Heath Hematocrit (Bld) [Volume fraction] 35.2 % Critically low 42.0-54.0 [facility] Comment on above: Performed By: #### P OCGLUC #### [facility] [address] [place] [address] Dr. Karina Heath Hemoglobin (Bld) [Mass/Vol] 12.0 g/dL Critically low 14.0-18.0 [facility] Comment on above: Performed By: #### P OCGLUC #### [facility] [address] [place] [address] Dr. Karina Heath IG # 0.02 10e3/ul Normal 0.00-0.03 [facility] Comment on above: Performed By: #### P OCGLUC #### [facility] [address] [address] [address] Karina Heath IG % 0.3 % Normal 0.0-0.5 [facility] Comment on above: Performed By: #### P OCGLUC #### [facility] [address] [place] [address] Dr. Karina Heath LYMPH # 1.7 103/ul Normal 1.2-3.8 [facility] Comment on above: Performed By: #### P OCGLUC #### [facility] [address] [place] [address] Dr. Karina Heath Lymphocytes/100 WBC (Bld) 26.3 % Normal 20.5-60.0 [facility] Comment on above: Performed By: #### P OCGLUC #### [facility] [address] [place] [address] Dr. Karina Heath MANUAL DIFF REQ NO Normal [facility] Comment on above: Performed By: #### P OCGLUC #### [facility] [address] [place] [address] Dr. Karina Heath MCH (RBC) [Entitic mass] 28.6 pg Normal 25.9-34.0 [facility] Comment on above: Performed By: #### P OCGLUC #### [facility] [address] [place] [address] Dr. Karina Heath MCHC (RBC) [Mass/Vol] 34.1 g/dL Normal 29.9-35.2 [facility] Comment on above: Performed By: #### P OCGLUC #### [facility] [address] [place] [address] Dr. Karina Heath MCV (RBC) [Entitic vol] 83.8 fL Normal 80.0-94.0 [facility] Comment on above: Performed By: #### P OCGLUC #### [facility] [address] [place] [address] Dr. Karina Heath MONO # 0.5 103/ul Normal 0.3-0.[address] [facility] Comment on above: Performed By: #### P OCGLUC #### [facility] [address] [place] [address] Dr. Karina Heath Monocytes/100 WBC (Bld) 7.0 % Normal 1.7-12.0 [facility] Comment on above: Performed By: #### P OCGLUC #### [facility] [address] [place] [address] Dr. Karina Heath NEUT # 4.2 103/ul Normal 1.4-6.5 [facility] Comment on above: Performed By: #### P OCGLUC #### [facility] [address] [place] [address] Dr. Karina Heath Neutrophils/100 WBC (Bld) 64.7 % Normal 43.0-75.0 [facility] Comment on above: Performed By: #### P OCGLUC #### [facility] [address] [place] [address] Dr. Karina Heath Platelet mean volume (Bld) [Entitic vol] 10.3 fL Normal 9.5-13.[address] [facility] Comment on above: Performed By: #### P OCGLUC #### [facility] [address] [place] [address] Dr. Karina Heath PLT 189 103/ul Normal 150-[address] [facility] Comment on above: Performed By: #### P OCGLUC #### [facility] [address] [place] [address] Dr. Karina Heath RBC 4.20 106/ul Critically low 4.70-6.10 [facility] Comment on above: Performed By: #### P OCGLUC #### [facility] [address] [place] [address] Dr. Karina Heath WBC 6.4 103/ul Normal 4.0-11.[address] [facility] Comment on above: Performed By: #### P OCGLUC #### [facility] [address] [address] [address] Karina Heath ECHOCARDIO M/2D COMPLETEon 0 12-28-2022 ECHOCARDIO M/2D COMPLETE Patient: ORTIZ GORMAN Exam Date: 12/28/2022 : 1975 Gender:M Ordering : DR VINCENT WINTERS . Admission #: [id number] Family : Order #: [id number] CLICK HERE TO VIEW EXAM ECHOCARDIOGRAM REPORT [...] Sibley M.D. on 12/28/2022 at 17:50 Normal [facility] POINT OF CARE GLUCOSEon 12-15 Glucose [Mass/Vol] 229 mg/dL Critically high [address] [place] [address] Comment on above: Performed By: #### P OCGLUC #### [facility] [address] [address] [address] Karina Heath Glucose [Mass/Vol] 171 mg/dL Critically high [address] [place] [address] Comment on above: Performed By: #### C VDTBH #### [facility] [address] [address] [address] Karina Heath Glucose [Mass/Vol] 242 mg/dL Critically high [address] [place] [address] Comment on above: Performed By: #### C VDTBH #### [facility] [address] [address] [address] Karina Heath PROF 14(COMP METB)on 03-14-2 023 Albumin [Mass/Vol] 3.0 g/dL Critically low 3.4-5.[address] [facility] Comment on above: Performed By: #### P OCGLUC #### [facility] [address] [address] [address] Karina Heath Albumin/Globulin [Mass ratio] 0.9 {ratio} Normal [facility] Comment on above: Performed By: #### P OCGLUC #### [facility] [address] [address] [address] Karina Heath ALP [Catalytic activity/Vol] 79 U/L Normal 46-116 [facility] Comment on above: Performed By: #### P OCGLUC #### [facility] [address] [address] [address] Karina Heath ALT [Catalytic activity/Vol] 27 U/L Normal 16-63 [facility] Comment on above: Performed By: #### P OCGLUC #### [facility] [address] [address] [address] Karina Heath Anion gap [Moles/Vol] 9.4 mmol/L Normal [facility] Comment on above: Performed By: #### P OCGLUC #### [facility] [address] [place] [address] Dr. Karina Heath AST [Catalytic activity/Vol] 21 U/L Normal 15-37 [facility] Comment on above: Performed By: #### P OCGLUC #### [facility] [address] [place] [address] Dr. Karina Heath Bilirubin [Mass/Vol] 0.2 mg/dL Normal 0.2-1.0 [facility] Comment on above: Performed By: #### P OCGLUC #### [facility] [address] [address] [address] Karina Heath Calcium [Mass/Vol] 8.6 mg/dL Normal 8.5-10.1 [facility] Comment on above: Performed By: #### P OCGLUC #### [facility] [address] [address] [address] Karina Heath Chloride [Moles/Vol] 104 mmol/L Normal 98-107 [facility] Comment on above: Performed By: #### P OCGLUC #### [facility] [address] [address] [address] Karina Heath CO2 [Moles/Vol] 26.9 mmol/L Normal 21.0-32.0 [facility] Comment on above: Performed By: #### P OCGLUC #### [facility] [address] [address] [address] Karina Heath Creatinine [Mass/Vol] 0.95 mg/dL Normal 0.70-1.30 [facility] Comment on above: Performed By: #### P OCGLUC #### [facility] [address] [address] [address] Karina Heath EGFR-AF CHADIAN >60 Normal >=60 [facility] Comment on above: Performed By: #### P OCGLUC #### [facility] [address] [address] [address] Karina Heath EGFR-NON AF CHADIAN >60 Normal >=60 [facility] Comment on above: Performed By: #### P OCGLUC #### [facility] [address] [address] [address] Karina Heath Globulin (S) [Mass/Vol] 3.2 g/dL Normal [facility] Comment on above: Performed By: #### P OCGLUC #### [facility] [address] [address] [address] Karina Heath Glucose [Mass/Vol] 258 mg/dL Critically high 74-106 [facility] Comment on above: Performed By: #### P OCGLUC #### [facility] [address] [address] [address] Karina Heath Potassium [Moles/Vol] 3.3 mmol/L Critically low 3.5-5.1 [facility] Comment on above: Performed By: #### P OCGLUC #### [facility] [address] [address] [address] Karina Heath Protein [Mass/Vol] 6.2 g/dL Critically low 6.4-8.2 [facility] Comment on above: Performed By: #### P OCGLUC #### [facility] [address] [address] [address] Karina Heath Sodium [Moles/Vol] 137 mmol/L Normal 136-145 [facility] Comment on above: Performed By: #### P OCGLUC #### [facility] [address] [place] [address] Dr. Karina Heath Urea nitrogen [Mass/Vol] 16.0 mg/dL Normal 7.0-18.0 [facility] Comment on above: Performed By: #### P OCGLUC #### [facility] [address] [place] [address] Dr. Karina Heath Urea nitrogen/Creatinine [Mass ratio] 16.8 mg/mg Normal [facility] Comment on above: Performed By: #### P OCGLUC #### [facility] [address] [place] [address] Dr. Karina Heath CBC AUTO DIFFon 12-27-2022 BASO # 0.0 103/ul Normal 0.0-0.1 [facility] Comment on above: Performed By: #### C BC #### [facility] [address] [place] [address] Dr. Karina Heath Basophils/100 WBC (Bld) 0.5 % Normal 0.2-2.0 [facility] Comment on above: Performed By: #### C BC #### [facility] [address] [place] [address] Dr. Karina Heath EO # 0.1 103/ul Normal 0.0-0.7 [facility] Comment on above: Performed By: #### C BC #### [facility] [address] [place] [address] Dr. Karina Heath Eosinophils/100 WBC (Bld) 0.8 % Critically low 0.9-7.0 [facility] Comment on above: Performed By: #### C BC #### [facility] [address] [place] [address] Dr. Karina Heath Erythrocyte distribution width (RBC) [Ratio] 13.2 % Normal 11.0-15.0 [facility] Comment on above: Performed By: #### C BC #### [facility] [address] [place] [address] Dr. Karina Heath Hematocrit (Bld) [Volume fraction] 37.1 % Critically low 42.0-54.0 [facility] Comment on above: Performed By: #### C BC #### [facility] [address] [place] [address] Dr. Karina Heath Hemoglobin (Bld) [Mass/Vol] 13.0 g/dL Critically low 14.0-18.0 [facility] Comment on above: Performed By: #### C BC #### [facility] [address] [place] [address] Dr. Karina Heath IG # 0.03 10e3/ul Normal 0.00-0.03 [facility] Comment on above: Performed By: #### C BC #### [facility] [address] [place] [address] Dr. Karina Heath IG % 0.4 % Normal 0.0-0.5 [facility] Comment on above: Performed By: #### C BC #### [facility] [address] [place] [address] Dr. Karina Heath LYMPH # 1.2 103/ul Normal 1.2-3.8 [facility] Comment on above: Performed By: #### C BC #### [facility] [address] [place] [address] Dr. Karina Heath Lymphocytes/100 WBC (Bld) 15.3 % Critically low 20.5-60.0 [facility] Comment on above: Performed By: #### C BC #### [facility] [address] [place] [address] Dr. Karina Heath MANUAL DIFF REQ NO Normal [facility] Comment on above: Performed By: #### C BC #### [facility] [address] [place] [address] Dr. Karina Heath MCH (RBC) [Entitic mass] 28.7 pg Normal 25.9-34.0 [facility] Comment on above: Performed By: #### C BC #### [facility] [address] [address] [address] Karina Heath MCHC (RBC) [Mass/Vol] 35.0 g/dL Normal 29.9-35.[address] [facility] Comment on above: Performed By: #### C BC #### [facility] [address] [address] [address] Karina Heath MCV (RBC) [Entitic vol] 81.9 fL Normal 80.0-94.0 [facility] Comment on above: Performed By: #### C BC #### [facility] [address] [place] [address] Dr. Karina Heath MONO # 0.6 103/ul Normal 0.3-0.[address] [facility] Comment on above: Performed By: #### C BC #### [facility] [address] [place] [address] Dr. Karina Heath Monocytes/100 WBC (Bld) 7.1 % Normal 1.7-12.0 [facility] Comment on above: Performed By: #### C BC #### [facility] [address] [place] [address] Dr. Karina Heath NEUT # 5.8 103/ul Normal 1.4-6.5 [facility] Comment on above: Performed By: #### C BC #### [facility] [address] [place] [address] Dr. Karina Heath Neutrophils/100 WBC (Bld) 75.9 % Critically high 43.0-75.[address] [facility] Comment on above: Performed By: #### C BC #### [facility] [address] [place] [address] Dr. Karina Heath Platelet mean volume (Bld) [Entitic vol] 9.6 fL Normal 9.5-13.[address] [facility] Comment on above: Performed By: #### C BC #### [facility] [address] [place] [address] Dr. Karina Heath PLT 200 103/ul Normal 150-[address] [facility] Comment on above: Performed By: #### C BC #### [facility] [address] [place], [place] [address] Dr. Karina Heath RBC 4.53 106/ul Critically low 4.70-6.10 [facility] Comment on above: Performed By: #### C BC #### [facility] [address] [place], [place] [address] Dr. Karina Heath WBC 7.7 103/ul Normal 4.0-11.0 [facility] Comment on above: Performed By: #### C BC #### [facility] [address] [place], [place] [address] STROKE HEAD WOon [...] 2022-12-27 14:03 Normal [address] [facility] CTA HEAD WO W CONon 12-28-19 [...] JACOB ALICIA Date: 2022-12-27 14:55 Normal [address] [facility] Covid-19 PCR (CVDTB)on 12-15 SARS-CoV-2 (COVID-19) RNA MEETA+probe Ql (Unsp spec) Not detected Normal NOT DETECTED [facility] Comment on above: Result Comment: When [...] for this test is supported by the Motor [employer] Captain of Health and Human Service's declaration that [...] used). Performed By: #### C VDTBH #### [facility] [address] [place] [address] [id number] [address] Karina Heath DRUG SCREEN RAPID (URINE)on 12-27-2022 AMP Negative Normal NEGATIVE [facility] Comment on above: Performed By: #### C BC #### [facility] [address] [place], [place] [address] Dr. Karina Heath BAR Negative Normal NEGATIVE [facility] Comment on above: Performed By: #### C BC #### [facility] [address] [place] [address] Dr. Karina Heath BUP Negative Normal NEGATIVE [facility] Comment on above: Performed By: #### C BC #### [facility] [address] [place] [address] Dr. Karina Heath BZO Negative Normal NEGATIVE [facility] Comment on above: Performed By: #### C BC #### [facility] [address] [place] [address] Dr. Karina Heath VALERY Negative Normal NEGATIVE [facility] Comment on above: Performed By: #### C BC #### [facility] [address] [place] [address] Dr. Karina Heath CUT-OFFS SEE BELOW Normal [facility] Comment on above: Result Comment: AMP [...] #### C BC #### [facility] [address] [place] [address] Dr. Karina Heath DRUG CUT HEADER DRUG CLASS TEST SYST EM CUT-OFF CONCENTRATIONS ARE FOLLOWS: Normal [facility] Comment on above: Performed By: #### C BC #### [facility] [address] [place] [address] Dr. Karina Heath mAMP Negative Normal NEGATIVE [facility] Comment on above: Performed By: #### C BC #### [facility] [address] [place] [address] Dr. Karina Heath MTD Negative Normal NEGATIVE [facility] Comment on above: Performed By: #### C BC #### [facility] [address] [place] [address] Dr. Karina Heath OPI Negative Normal NEGATIVE [facility] Comment on above: Performed By: #### C BC #### [facility] [address] [place] [address] Dr. Karina Heath OXY Negative Normal NEGATIVE [facility] Comment on above: Performed By: #### C BC #### [facility] [address] [place] [address] Dr. Karina Heath PCP Negative Normal NEGATIVE [facility] Comment on above: Performed By: #### C BC #### [facility] [address] [place] [address] Dr. Karina Heath PPX Negative Normal NEGATIVE [facility] Comment on above: Performed By: #### C BC #### [facility] [address] [place] [address] Dr. Karina Heath TCA Negative Normal NEGATIVE [facility] Comment on above: Performed By: #### C BC #### [facility] [address] [place] [address] Dr. Karina Heath THC Negative Normal NEGATIVE [facility] Comment on above: Performed By: #### C BC #### [facility] [address] [place] [address] Dr. Karina Heath ER URINE PROFILEon 3 Bilirubin Ql (U) Negative Normal NEGATIVE [facility] Comment on above: Performed By: #### P OCGLUC #### [facility] [address] [place] [address] Dr. Karina Heath Clarity (U) CLEAR Normal CLEAR [facility] Comment on above: Performed By: #### P OCGLUC #### [facility] [address] [place] [address] Dr. Karina Heath Color (U) LT. YELLOW Normal YELLOW [facility] Comment on above: Performed By: #### P OCGLUC #### [facility] [address] [place] [address] Dr. Karina GLASGOW A micrscopic examination will be performed if indicated. Normal [facility] Comment on above: Performed By: #### P OCGLUC #### [facility] [address] [address] [address] Karina Heath Glucose Ql (U) >1000 Abnormal NEGATIVE [facility] Comment on above: Performed By: #### P OCGLUC #### [facility] [address] [address] [address] Karina Heath Hemoglobin Ql (U) TRACE-INTACT Abnormal NEGATIVE [facility] Comment on above: Performed By: #### P OCGLUC #### [facility] [address] [address] [address] Karina Heath Ketones Ql (U) TRACE Abnormal NEGATIVE [facility] Comment on above: Performed By: #### P OCGLUC #### [facility] [address] [address] [address] Karina Heath LEUKOCYTES Negative Normal NEGATIVE [facility] Comment on above: Performed By: #### P OCGLUC #### [facility] [address] [place] [address] Dr. Karina Heath Nitrite Ql (U) Negative Normal NEGATIVE [facility] Comment on above: Performed By: #### P OCGLUC #### [facility] [address] [address] [address] Karina Heath pH (U) 7.0 [pH] Normal 5-9 [facility] Comment on above: Performed By: #### P OCGLUC #### [facility] [address] [place] [address] Dr. Karina Heath Protein (U) [Mass/Vol] 100 mg/dL Abnormal NEGAT RAJAN/ TRACE [facility] Comment on above: Performed By: #### P OCGLUC #### [facility] [address] [place] [address] Dr. Karina Heath SPEC GRAVITY 1.010 Normal 1.005-<=1.02 5 [facility] Comment on above: Performed By: #### P OCGLUC #### [facility] [address] [address] [address] Karina Heath UR MICRO IND INDICATED Normal [facility] Comment on above: Performed By: #### P OCGLUC #### [facility] [address] [address] [address] Karina Heath Urobilinogen Qn (U) 0.2 {Rachana'U}/dL Normal 0.2 - 1. 0 [facility] Comment on above: Performed By: #### P OCGLUC #### [facility] [address] [place] [address] Dr. Karina Heath POINT OF CARE GLUCOSEon 12-15 Glucose [Mass/Vol] 233 mg/dL Critically high 74-106 [facility] Comment on above: Performed By: #### P OCGLUC #### [facility] [address] [address] [address] Karina Heath Glucose [Mass/Vol] 199 mg/dL Critically high -106 [facility] Comment on above: Performed By: #### P OCGLUC #### [facility] [address] [place] [address] Dr. Karina Heath PROF 14(COMP METB)on 023 Albumin [Mass/Vol] 3.4 g/dL Normal 3.4-5.0 [facility] Comment on above: Performed By: #### P OCGLUC #### [facility] [address] [place] [address] Dr. Karina Heath Albumin/Globulin [Mass ratio] 1.0 {ratio} Normal [facility] Comment on above: Performed By: #### P OCGLUC #### [facility] [address] [place] [address] Dr. Karina Heath ALP [Catalytic activity/Vol] 100 U/L Normal 46-116 [facility] Comment on above: Performed By: #### P OCGLUC #### [facility] [address] [address] [address] Karina Heath ALT [Catalytic activity/Vol] 31 U/L Normal 16-63 [facility] Comment on above: Performed By: #### P OCGLUC #### [facility] [address] [place] [address] Dr. Karina Heath Anion gap [Moles/Vol] 10.5 mmol/L Normal [facility] Comment on above: Performed By: #### P OCGLUC #### [facility] [address] [address] [address] Karina Heath AST [Catalytic activity/Vol] 18 U/L Normal 15-37 [facility] Comment on above: Performed By: #### P OCGLUC #### [facility] [address] [address] [address] Karina Heath Bilirubin [Mass/Vol] 0.2 mg/dL Normal 0.2-1.0 [facility] Comment on above: Performed By: #### P OCGLUC #### [facility] [address] [address] [address] Karina Heath Calcium [Mass/Vol] 9.0 mg/dL Normal 8.5-10.1 [facility] Comment on above: Performed By: #### P OCGLUC #### [facility] [address] [address] [address] Karina Heath Chloride [Moles/Vol] 96 mmol/L Critically low 98-107 [facility] Comment on above: Performed By: #### P OCGLUC #### [facility] [address] [address] [address] Karina Heath CO2 [Moles/Vol] 29.1 mmol/L Normal 21.0-32.0 [facility] Comment on above: Performed By: #### P OCGLUC #### [facility] [address] [address] [address] Karina Heath Creatinine [Mass/Vol] 0.91 mg/dL Normal 0.70-1.30 [facility] Comment on above: Performed By: #### P OCGLUC #### [facility] [address] [address] [address] Karina Heath EGFR-AF CHADIAN >60 Normal >=60 [facility] Comment on above: Performed By: #### P OCGLUC #### [facility] [address] [address] [address] Karina Heath EGFR-NON AF CHADIAN >60 Normal >=60 [facility] Comment on above: Performed By: #### P OCGLUC #### [facility] [address] [address] [address] Karina Heath Globulin (S) [Mass/Vol] 3.5 g/dL Normal [facility] Comment on above: Performed By: #### P OCGLUC #### [facility] [address] [address] [address] Karina Heath Glucose [Mass/Vol] 214 mg/dL Critically high 74-[address] [facility] Comment on above: Performed By: #### P OCGLUC #### [facility] [address] [address] [address] Karina Heath Potassium [Moles/Vol] 3.6 mmol/L Normal 3.5-5.1 [facility] Comment on above: Performed By: #### P OCGLUC #### [facility] [address] [address] [address] Karina Heath Protein [Mass/Vol] 6.9 g/dL Normal 6.4-8.2 [facility] Comment on above: Performed By: #### P OCGLUC #### [facility] [address] [address] [address] Karina Heath Sodium [Moles/Vol] 132 mmol/L Critically low 136-145 [facility] Comment on above: Performed By: #### P OCGLUC #### [facility] [address] [address] [address] Karina Heath Urea nitrogen [Mass/Vol] 27.0 mg/dL Critically high 7.0-18.0 [facility] Comment on above: Performed By: #### P OCGLUC #### [facility] [address] [address] [address] Karina Heath Urea nitrogen/Creatinine [Mass ratio] 29.7 mg/mg Normal [facility] Comment on above: Performed By: #### P OCGLUC #### [facility] [address] [address] [address] Karian Heath PROTIMEon 12-27-2022 INR Coag (PPP) [Relative time] {INR} Normal [facility] Comment on above: Performed By: #### P TT, PT #### [facility] [address] [place] [address] Dr. Karina Heath INR GUIDELINES SEE BELOW Normal [facility] Comment on above: Result Comment: LINDA RED INR: 2.0 - 3.0 CONDITIONS NOT LISTED BELOW 2.5 - 3.5 FOR PROSTHETIC HEART VALVE REPLACEMENT 2.5 - 3.5 RECURRENT THROMBOSIS Performed By: #### P TT, PT #### [facility] [address] [place] [address] Dr. Karina Heath PT Coag (PPP) [Time] 9.8 s Normal 9.0-11.6 [facility] Comment on above: Performed By: #### P TT, PT #### [facility] Laboratory [address] [place] [address] Dr. Karina Heath PTTon 12-27-2022 aPTT Coag (Bld) [Time] 24.3 s Normal 22.3-36.2 [facility] Comment on above: Performed By: #### P TT, PT #### [facility] Laboratory [address] [place] [address] Dr. Karina Heath TROPONIN, HIGH SENSITIVITYon 12-27-2022 HSTROP 5.5 pg/mL Normal 4.0-76.1 [facility] Comment on above: Result Comment: CUT- OFF POINTS HAVE BEEN ESTABLISHED BASED ON THE FOURTH UNIVERSAL DEFINITIONS OF MYOCARDIAL INFARCTION. THE UPPER REFERENCE LIMIT (URL) OF TROPONIN, DEFINED THE 99TH PERCENTILE OF cTnI DISTRIBUTION IN A REFERENCE POPULATION, HAS BEEN CONFIRMED THE DECISION THRESHOLD FOR [place] DIAGNOSIS. Performed By: #### P OCGLUC #### [facility] Laboratory [address] [place] [address] Dr. Karina Heath TSHon 12-27-2022 TSH 0.848 uIU/mL Normal 0.358-3.740 [facility] Comment on above: Performed By: #### P OCGLUC #### [facility] Laboratory [address] [place] [address] Dr. Karina Heath URINE MICROSCOPIC ONLYon BACTERIA NONE SEEN Normal NONE SEEN The [facility] Comment on above: Performed By: #### P OCGLUC #### [facility] Laboratory [address] [place] [address] Dr. Karina Heath Bacteria identified Cx Nom (U) NOT INDICATED Normal [facility] Comment on above: Performed By: #### P OCGLUC #### [facility] [address] [place] [address] Dr. Karina Heath CAST NONE SEEN Normal NONE SEEN [facility] Comment on above: Performed By: #### P OCGLUC #### [facility] [address] [place] [address] Dr. Karina Heath Crystals LM Nom (Urine sed) NONE SEEN Normal NONE SEEN [facility] Comment on above: Performed By: #### P OCGLUC #### [facility] [address] [place] [address] Dr. Karina Heath Epithelial cells LM Ql (Urine sed) NONE SEEN Normal NONE SEEN /RARE The [facility] Comment on above: Performed By: #### P OCGLUC #### [facility] [address] [place] [address] Dr. Karina Heath MUCOUS NONE SEEN Normal NONE SEEN The [facility] Comment on above: Performed By: #### P OCGLUC #### [facility] [address] [place] [address] Dr. Karina Heath RBC 0-2 Normal 0-2 [facility] Comment on above: Performed By: #### P OCGLUC #### [facility] [address] [place] [address] Dr. Karina Heath WBC NONE SEEN Normal NONE SEEN [facility] Comment on above: Performed By: #### P OCGLUC #### [facility] [address] [place] [address] Dr. Karina Heath XR CHEST 1 Von 12-27-2022 XR CHEST 1 V EXAM: XR CHEST 1 V HISTORY: Aphasia COMPARISON: None. TECHNIQUE: AP upright portable. FINDINGS: Cardiomediastinal silhouette and pulmonary vascularity are within normal limits. Lungs and the costophrenic angles are clear. IMPRESSION: No acute cardiopulmonary disease. Electronically authenticated by: ANNI NOYOLA Date: 2022-12-27 14:03 Normal [facility] ACID FAST SMEAR AND CXon Acid Fast Culture Negative Normal [facility] Comment on above: Result Comment: No a martin fast bacilli isolated after 6 weeks. Performed By: #### A FB #### [facility] Laboratory [address] [address] [address] Karina Heath Acid Fast Smear Negative Normal [facility] Comment on above: Performed By: #### A FB #### [facility] [address] [address] [address] Karina Heath AFB Specimen Processing Direct Inoculation [facility] Comment on above: Performed By: #### A FB #### [facility] [address] [address] [address] Karina Heath FUNGAL CULTUREon 11-12-2022 Fungus (Mycology) Culture Final report [facility] Comment on above: Performed By: #### C BC #### [facility] [address] [place] [address] Dr. Karina Heath Fungus Stain Final report Normal [facility] Comment on above: Performed By: #### C BC #### [facility] [address] [place] [address] Dr. Karina Heath Result 1 Comment [facility] Comment on above: Result Comment: MYNOR/ Calcofluor preparation: no fungus observed. Performed By: #### C BC #### [facility] [address] [place] [address] Dr. Karina Heath Result Comment: No y [...] F Trimethoprim/Sulfametho xazole <=10 S F Normal [facility] Comment on above: Performed By: #### P OCGLUC #### [facility] [address] [place] [address] Dr. Karina Heath CBC AUTO DIFFon 10-15-2022 BASO # 0.0 103/ul Normal 0.0-0.1 [facility] Comment on above: Performed By: #### C BC #### [facility] [address] [place] [address] Dr. Karina Heath Basophils/100 WBC (Bld) 0.5 % Normal 0.2-2.0 [facility] Comment on above: Performed By: #### C BC #### [facility] [address] [place] [address] Dr. Karina Heath EO # 0.1 103/ul Normal 0.0-0.7 [facility] Comment on above: Performed By: #### C BC #### [facility] [address] [place] [address] Dr. Karina Heath Eosinophils/100 WBC (Bld) 1.5 % Normal 0.9-7.0 [facility] Comment on above: Performed By: #### C BC #### [facility] [address] [place] [address] Dr. Karina Heath Erythrocyte distribution width (RBC) [Ratio] 12.4 % Normal 11.0-15.0 [facility] Comment on above: Performed By: #### C BC #### [facility] [address] [place] [address] Dr. Karina Heath Hematocrit (Bld) [Volume fraction] 33.1 % Critically low 42.0-54.0 [facility] Comment on above: Performed By: #### C BC #### [facility] [address] [place] [address] Dr. Karina Heath Hemoglobin (Bld) [Mass/Vol] 11.0 g/dL Critically low 14.0-18.0 [facility] Comment on above: Performed By: #### C BC #### [facility] [address] [place] [address] Dr. Karina Heath IG # 0.03 10e3/ul Normal 0.00-0.03 [facility] Comment on above: Performed By: #### C BC #### [facility] [address] [place] [address] Dr. Karina Heath IG % 0.5 % Normal 0.0-0.5 [facility] Comment on above: Performed By: #### C BC #### [facility] [address] [place] [address] Dr. Karina Heath LYMPH # 1.2 103/ul Normal 1.2-3.8 [facility] Comment on above: Performed By: #### C BC #### [facility] [address] [place] [address] Dr. Karina Heath Lymphocytes/100 WBC (Bld) 20.0 % Critically low 20.5-60.0 [facility] Comment on above: Performed By: #### C BC #### [facility] [address] [place] [address] Dr. Karina Heath MANUAL DIFF REQ NO Normal [facility] Comment on above: Performed By: #### C BC #### [facility] [address] [place] [address] Dr. Karina Heath MCH (RBC) [Entitic mass] 28.6 pg Normal 25.9-34.0 [facility] Comment on above: Performed By: #### C BC #### [facility] [address] [place] [address] Dr. Karina Heath MCHC (RBC) [Mass/Vol] 33.2 g/dL Normal 29.9-35.2 [facility] Comment on above: Performed By: #### C BC #### [facility] [address] [place] [address] Dr. Karina Heath MCV (RBC) [Entitic vol] 86.0 fL Normal 80.0-94.0 [facility] Comment on above: Performed By: #### C BC #### [facility] [address] [place] [address] Dr. Karina Heath MONO # 0.5 103/ul Normal 0.3-0.8 [facility] Comment on above: Performed By: #### C BC #### [facility] [address] [place] [address] Dr. Karina Heath Monocytes/100 WBC (Bld) 9.1 % Normal 1.7-12.0 [facility] Comment on above: Performed By: #### C BC #### [facility] [address] [place] [address] Dr. Karina Heath NEUT # 4.0 103/ul Normal 1.4-6.5 [facility] Comment on above: Performed By: #### C BC #### [facility] [address] [place] [address] Dr. Karina Heath Neutrophils/100 WBC (Bld) 68.4 % Normal 43.0-75.0 [facility] Comment on above: Performed By: #### C BC #### [facility] [address] [place] [address] Dr. Karina Heath Platelet mean volume (Bld) [Entitic vol] 9.2 fL Critically low 9.5-13.5 [facility] Comment on above: Performed By: #### C BC #### [facility] [address] [place] [address] Dr. Karina Heath PLT 214 103/ul Normal 150-[address] [facility] Comment on above: Performed By: #### C BC #### [facility] [address] [place] [address] Dr. Karina Heath RBC 3.85 106/ul Critically low 4.70-6.10 [facility] Comment on above: Performed By: #### C BC #### [facility] [address] [place] [address] Dr. Karina Heath WBC 5.8 103/ul Normal 4.0-11.[address] [facility] Comment on above: Performed By: #### C BC #### [facility] [address] [place] [address] Dr. Karina Heath CULTURE WOUNDon 10-15-2022 CULTURE [...] F Trimethoprim/Sulfametho xazole <=10 S F Normal [facility] Comment on above: Performed By: #### W OUNDCX #### [facility] [address] [place] [address] Dr. Karina Heath POINT OF CARE GLUCOSEon 09-18 Glucose [Mass/Vol] 353 mg/dL Critically high 74-106 [facility] Comment on above: Performed By: #### C BC #### [facility] [address] [place] [address] Dr. Karina Heath Glucose [Mass/Vol] 363 mg/dL Critically high -106 [facility] Comment on above: Performed By: #### C BC #### [facility] [address] [place] [address] Dr. Karina Heath PROF CHEM 8 (BAS METB)on Anion gap [Moles/Vol] 12.0 mmol/L Normal [facility] Comment on above: Performed By: #### C VDTBH #### [facility] [address] [place] [address] Dr. Karina Heath Calcium [Mass/Vol] 8.4 mg/dL Critically low 8.5-10.1 [facility] Comment on above: Performed By: #### C VDTBH #### [facility] [address] [place] [address] Dr. Karina Heath Chloride [Moles/Vol] 98 mmol/L Normal 98-107 [facility] Comment on above: Performed By: #### C VDTBH #### [facility] [address] [place] [address] Dr. Karina Heath CO2 [Moles/Vol] 27.2 mmol/L Normal 21.0-32.0 [facility] Comment on above: Performed By: #### C VDTBH #### [facility] [address] [place] [address] Dr. Karina Heath Creatinine [Mass/Vol] 1.07 mg/dL Normal 0.70-1.30 [facility] Comment on above: Performed By: #### C VDTBH #### [facility] [address] [place] [address] Dr. Karina Heath EGFR-AF CHADIAN >60 Normal >=60 [facility] Comment on above: Performed By: #### C VDTBH #### [facility] [address] [place] [address] Dr. Karina Heath EGFR-NON AF CHADIAN >60 Normal >=60 [facility] Comment on above: Performed By: #### C VDTBH #### [facility] [address] [place] [address] Dr. Karina Heath Glucose [Mass/Vol] 355 mg/dL Critically high 74-[address] [facility] Comment on above: Performed By: #### C VDTBH #### [facility] [address] [place] [address] Dr. Karina Heath Potassium [Moles/Vol] 4.2 mmol/L Normal 3.5-5.1 [facility] Comment on above: Performed By: #### C VDTBH #### [facility] [address] [place] [address] Dr. Karina Heath Sodium [Moles/Vol] 133 mmol/L Critically low 136-145 [facility] Comment on above: Performed By: #### C VDTBH #### [facility] [address] [place] [address] Dr. Karina Heath Urea nitrogen [Mass/Vol] 17.0 mg/dL Normal 7.0-18.0 [facility] Comment on above: Performed By: #### C VDTBH #### [facility] [address] [place] [address] Dr. Karina Heath Urea nitrogen/Creatinine [Mass ratio] 15.9 mg/mg Normal [facility] Comment on above: Performed By: #### C VDTBH #### [facility] [address] [place] [address] Dr. Karina Heath PTTon 10-15-2022 aPTT Coag (Bld) [Time] 27.3 s Normal 22.3-36.[address] [facility] Comment on above: Performed By: #### C VDTBH #### [facility] [address] [place] [address] Dr. Karina Heath CBC AUTO DIFFon 10-14-2022 BASO # 0.0 103/ul Normal 0.0-0.1 [facility] Comment on above: Performed By: #### C BC #### [facility] [address] [place] [address] Dr. Karina Heath Basophils/100 WBC (Bld) 0.4 % Normal 0.2-2.0 [facility] Comment on above: Performed By: #### C BC #### [facility] [address] [place] [address] Dr. Karina Heath EO # 0.1 103/ul Normal 0.0-0.7 [facility] Comment on above: Performed By: #### C BC #### [facility] [address] [place] [address] Dr. Karina Heath Eosinophils/100 WBC (Bld) 1.5 % Normal 0.9-7.0 [facility] Comment on above: Performed By: #### C BC #### [facility] [address] [place] [address] Dr. Karina Heath Erythrocyte distribution width (RBC) [Ratio] 12.6 % Normal 11.0-15.0 [facility] Comment on above: Performed By: #### C BC #### [facility] [address] [place] [address] Dr. Karina Heath Hematocrit (Bld) [Volume fraction] 31.3 % Critically low 42.0-54.0 [facility] Comment on above: Performed By: #### C BC #### [facility] [address] [place] [address] Dr. Karina Heath Hemoglobin (Bld) [Mass/Vol] 10.8 g/dL Critically low 14.0-18.0 [facility] Comment on above: Performed By: #### C BC #### [facility] [address] [place] [address] Dr. Karina Heath IG # 0.05 10e3/ul Critically high 0.00-0.03 [facility] Comment on above: Performed By: #### C BC #### [facility] [address] [place] [address] Dr. Karina Heath IG % 0.7 % Critically high 0.0-0.5 [facility] Comment on above: Performed By: #### C BC #### [facility] [address] [place] [address] Dr. Karina Heath LYMPH # 1.4 103/ul Normal 1.2-3.8 [facility] Comment on above: Performed By: #### C BC #### [facility] [address] [place] [address] Dr. Karina Heath Lymphocytes/100 WBC (Bld) 20.8 % Normal 20.5-60.0 [facility] Comment on above: Performed By: #### C BC #### [facility] [address] [place] [address] Dr. Karina Heath MANUAL DIFF REQ NO Normal [facility] Comment on above: Performed By: #### C BC #### [facility] [address] [place] [address] Dr. Karina Heath MCH (RBC) [Entitic mass] 29.4 pg Normal 25.9-34.0 [facility] Comment on above: Performed By: #### C BC #### [facility] [address] [place] [address] Dr. Karina Heath MCHC (RBC) [Mass/Vol] 34.5 g/dL Normal 29.9-35.2 [facility] Comment on above: Performed By: #### C BC #### [facility] [address] [place] [address] Dr. Karina Heath MCV (RBC) [Entitic vol] 85.3 fL Normal 80.0-94.[address] [facility] Comment on above: Performed By: #### C BC #### [facility] [address] [place] [address] Dr. Karina Heath MONO # 0.7 103/ul Normal 0.3-0.[address] [facility] Comment on above: Performed By: #### C BC #### [facility] [address] [place] [address] Dr. Karina Heath Monocytes/100 WBC (Bld) 10.3 % Normal 1.7-12.[address] [facility] Comment on above: Performed By: #### C BC #### [facility] [address] [place] [address] Dr. Karina Heath NEUT # 4.5 103/ul Normal 1.4-6.5 [facility] Comment on above: Performed By: #### C BC #### [facility] [address] [place] [address] Dr. Karina Heath Neutrophils/100 WBC (Bld) 66.3 % Normal 43.0-75.[address] [facility] Comment on above: Performed By: #### C BC #### [facility] [address] [place] [address] Dr. Karina Heath Platelet mean volume (Bld) [Entitic vol] 9.2 fL Critically low 9.5-13.[address] [facility] Comment on above: Performed By: #### C BC #### [facility] [address] [place] [address] Dr. Karina Heath PLT 227 103/ul Normal 150-[address] [facility] Comment on above: Performed By: #### C BC #### [facility] [address] [place] [address] Dr. Karina Heath RBC 3.67 106/ul Critically low 4.70-6.10 [facility] Comment on above: Performed By: #### C BC #### [facility] [address] [address] [address] Karina Heath WBC 6.7 103/ul Normal 4.0-11.0 [facility] Comment on above: Performed By: #### C BC #### [facility] [address] [address] [address] Karina Heath CULTURE ANAEROBICon 10-14-20 22 CULTURE ANAEROBIC Culture Observations : NO GROWTH OF ANAEROBES AT 72 HOURS. Normal [facility] Comment on above: Performed By: #### A NACX #### [facility] [address] [place] [address] Dr. Karina Heath GRAM STAINon 10-14-2022 DIPHTHEROIDS [facility] Comment on above: Performed By: #### P OCGLUC #### [facility] [address] [place] [address] Dr. Karina Heath EPITHELIALS [facility] Comment on above: Performed By: #### P OCGLUC #### [facility] [address] [address] [address] Karina Heath FUNGAL ELEMENTS [facility] Comment on above: Performed By: #### P OCGLUC #### [facility] [address] [place] [address] Dr. Karina CHEN NEG BACILLI [facility] Comment on above: Performed By: #### P OCGLUC #### [facility] [address] [place] [address] Dr. Karina CHEN NEG DIPPLOCOCCI [facility] Comment on above: Performed By: #### P OCGLUC #### [facility] [address] [place] [address] Dr. Karina CHEN POS BACILLI [facility] Comment on above: Performed By: #### P OCGLUC #### [facility] [address] [address] [address] Karina Heath GRAM POSITIVE COCCI FEW Normal [facility] Comment on above: Performed By: #### P OCGLUC #### [facility] [address] [address] [address] Karina Heath GRAM STAIN SOURCE Rt Leg Abscess [facility] Comment on above: Performed By: #### P OCGLUC #### [facility] [address] [address] [address] Karina Heath GS_DIPTH Normal [facility] Comment on above: Performed By: #### P OCGLUC #### [facility] [address] [address] [address] Karina Heath WBC RARE [facility] Comment on above: Performed By: #### P OCGLUC #### [facility] [address] [address] [address] Karina Heath POINT OF CARE GLUCOSEon 09-17 Glucose [Mass/Vol] 282 mg/dL Critically high [address] [place] [address] Comment on above: Performed By: #### C BC #### [facility] [address] [address] [address] Karina Heath Glucose [Mass/Vol] 281 mg/dL Critically high [address] [place] [address] Comment on above: Performed By: #### P OCGLUC #### [facility] [address] [address] [address] Karina Heath Glucose [Mass/Vol] 157 mg/dL Critically high [address] [place] [address] Comment on above: Performed By: #### P OCGLUC #### [facility] [address] [address] [address] Karina Heath Glucose [Mass/Vol] 180 mg/dL Critically high [address] [place] [address] Comment on above: Performed By: #### P OCGLUC #### [facility] [address] [place] [address] Dr. Karina Heath PROF CHEM 8 (BAS METB)on Anion gap [Moles/Vol] 10.4 mmol/L Normal [facility] Comment on above: Performed By: #### C BC #### [facility] [address] [place] [address] Dr. Karina Heath Calcium [Mass/Vol] 8.4 mg/dL Critically low 8.5-10.1 [facility] Comment on above: Performed By: #### C BC #### [facility] [address] [place] [address] Dr. Karina Heath Chloride [Moles/Vol] 99 mmol/L Normal 98-107 [facility] Comment on above: Performed By: #### C BC #### [facility] [address] [place] [address] Dr. Karina Heath CO2 [Moles/Vol] 29.3 mmol/L Normal 21.0-32.0 [facility] Comment on above: Performed By: #### C BC #### [facility] [address] [place] [address] Dr. Karina Heath Creatinine [Mass/Vol] 1.01 mg/dL Normal 0.70-1.30 [facility] Comment on above: Performed By: #### C BC #### [facility] [address] [place] [address] Dr. Karina Heath EGFR-AF CHADIAN >60 Normal >=60 [facility] Comment on above: Performed By: #### C BC #### [facility] [address] [place] [address] Dr. Karina Heath EGFR-NON AF CHADIAN >60 Normal >=60 [facility] Comment on above: Performed By: #### C BC #### [facility] [address] [place] [address] Dr. Karina Heath Glucose [Mass/Vol] 394 mg/dL Critically high 74-106 [facility] Comment on above: Performed By: #### C BC #### [facility] [address] [place] [address] Dr. Karina Heath Potassium [Moles/Vol] 3.7 mmol/L Normal 3.5-5.1 [facility] Comment on above: Performed By: #### C BC #### [facility] [address] [place] [address] Dr. Karina Heath Sodium [Moles/Vol] 135 mmol/L Critically low 136-145 [facility] Comment on above: Performed By: #### C BC #### [facility] [address] [place] [address] Dr. Karina Heath Urea nitrogen [Mass/Vol] 13.0 mg/dL Normal 7.0-18.0 [facility] Comment on above: Performed By: #### C BC #### [facility] [address] [place] [address] Dr. Karina Heath Urea nitrogen/Creatinine [Mass ratio] 12.9 mg/mg Normal [facility] Comment on above: Performed By: #### C BC #### [facility] [address] [place] [address] Dr. Karina Heath PTTon 10-14-2022 aPTT Coag (Bld) [Time] 26.5 s Normal 22.3-36.2 [facility] Comment on above: Performed By: #### P OCGLUC #### [facility] [address] [place] [address] Dr. Karina Heath CBC AUTO DIFFon 10-13-2022 BASO # 0.1 103/ul Normal 0.0-0.1 [facility] Comment on above: Performed By: #### C BC #### [facility] [address] [place] [address] Dr. Karina Heath Basophils/100 WBC (Bld) 0.8 % Normal 0.2-2.0 [facility] Comment on above: Performed By: #### C BC #### [facility] [address] [place] [address] Dr. Karina Heath EO # 0.1 103/ul Normal 0.0-0.7 [facility] Comment on above: Performed By: #### C BC #### [facility] [address] [place] [address] Dr. Karina Heath Eosinophils/100 WBC (Bld) 1.8 % Normal 0.9-7.0 [facility] Comment on above: Performed By: #### C BC #### [facility] [address] [place] [address] Dr. Karina Heath Erythrocyte distribution width (RBC) [Ratio] 12.3 % Normal 11.0-15.0 [facility] Comment on above: Performed By: #### C BC #### [facility] [address] [place] [address] Dr. Karina Heath Hematocrit (Bld) [Volume fraction] 33.7 % Critically low 42.0-54.0 [facility] Comment on above: Performed By: #### C BC #### [facility] [address] [place] [address] Dr. Karina Heath Hemoglobin (Bld) [Mass/Vol] 11.8 g/dL Critically low 14.0-18.0 [facility] Comment on above: Performed By: #### C BC #### [facility] [address] [place] [address] Dr. Karina Heath IG # 0.05 10e3/ul Critically high 0.00-0.03 [facility] Comment on above: Performed By: #### C BC #### [facility] [address] [place] [address] Dr. Karina Heath IG % 0.8 % Critically high 0.0-0.5 [facility] Comment on above: Performed By: #### C BC #### [facility] [address] [place] [address] Dr. Karina Heath LYMPH # 1.0 103/ul Critically low 1.2-3.8 [facility] Comment on above: Performed By: #### C BC #### [facility] [address] [place] [address] Dr. Karina Heath Lymphocytes/100 WBC (Bld) 16.4 % Critically low 20.5-60.0 [facility] Comment on above: Performed By: #### C BC #### [facility] [address] [place] [address] Dr. Karina Heath MANUAL DIFF REQ NO Normal [facility] Comment on above: Performed By: #### C BC #### [facility] [address] [place] [address] Dr. Karina Heath MCH (RBC) [Entitic mass] 28.9 pg Normal 25.9-34.0 [facility] Comment on above: Performed By: #### C BC #### [facility] [address] [place] [address] Dr. Karina Heath MCHC (RBC) [Mass/Vol] 35.0 g/dL Normal 29.9-35.2 [facility] Comment on above: Performed By: #### C BC #### [facility] [address] [place] [address] Dr. Karina Heath MCV (RBC) [Entitic vol] 82.6 fL Normal 80.0-94.0 [facility] Comment on above: Performed By: #### C BC #### [facility] [address] [place] [address] Dr. Karina Heath MONO # 0.7 103/ul Normal 0.3-0.8 [facility] Comment on above: Performed By: #### C BC #### [facility] [address] [place] [address] Dr. Karina Heath Monocytes/100 WBC (Bld) 10.6 % Normal 1.7-12.0 [facility] Comment on above: Performed By: #### C BC #### [facility] [address] [place] [address] Dr. Karina Heath NEUT # 4.3 103/ul Normal 1.4-6.5 [facility] Comment on above: Performed By: #### C BC #### [facility] [address] [place] [address] Dr. Karina Heath Neutrophils/100 WBC (Bld) 69.6 % Normal 43.0-75.[address] [facility] Comment on above: Performed By: #### C BC #### [facility] [address] [place] [address] Dr. Karina Heath Platelet mean volume (Bld) [Entitic vol] 9.0 fL Critically low 9.5-13.5 [facility] Comment on above: Performed By: #### C BC #### [facility] [address] [place] [address] Dr. Karina Heath PLT 257 103/ul Normal 150-450 [facility] Comment on above: Performed By: #### C BC #### [facility] [address] [address] [address] Karina Heath RBC 4.08 106/ul Critically low 4.70-6.10 [facility] Comment on above: Performed By: #### C BC #### [facility] [id number] Karina Heath WBC 6.1 103/ul Normal 4.0-11.0 [facility] Comment on above: Performed By: #### C BC #### [facility] [address] [address] [address] Karina Heath CULTURE BLOODon 10-13-2022 Microscopic examination of blood, culture Culture Observations: NO GROWTH AT 5 DAYS. Normal [facility] Comment on above: Performed By: #### P OCGLUC #### [facility] [address] [place] [address] Dr. Karina Heath Microscopic examination of blood, culture Culture Observations: NO GROWTH AT 5 DAYS. Normal [facility] Comment on above: Performed By: #### P OCGLUC #### [facility] [address] [address] [address] Karina Heath [facility]17 SARS-CoV-2 (COVID-19) RNA MEETA+probe Ql (Unsp spec) Not detected Normal NOT DETECTED [facility] Comment on above: Result Comment: When [...] for this test is supported by the Motor Equipment Captain of Health and Human Service's declaration that [...] #### P OCGLUC #### [facility] [address] [place] [address] Dr. Karina Heath POINT OF CARE GLUCOSEon 12-2 Glucose [Mass/Vol] 281 mg/dL Critically high 74-[address] [facility] Comment on above: Performed By: #### P OCGLUC #### [facility] [address] [place] [address] Dr. Karina Heath GI PANEL (PCR)on 09-24-2022 Adenovirus F 40/41 Not detected Normal NOT DETECTED [facility] Comment on above: Performed By: #### C BC #### [facility] [address] [place] [address] Dr. Karina Heath Astrovirus Not detected Normal NOT DETECTED [facility] Comment on above: Performed By: #### C BC #### [facility] [address] [place] [address] Dr. Karina Heath C. Diff toxin A/B Not detected Normal NOT DETECTED [facility] Comment on above: Performed By: #### C BC #### [facility] [address] [place] [address] Dr. Karina Heath Campylobacter Not detected Normal NOT DETECTED [facility] Comment on above: Performed By: #### C BC #### [facility] [address] [place] [address] Dr. Karina Heath Cryptosporidium Not detected Normal NOT DETECTED [facility] Comment on above: Performed By: #### C BC #### [facility] [address] [place] [address] Dr. Karina Heath Cyclos. Cayetanensis Not detected Normal NOT DETECTED [facility] Comment on above: Performed By: #### C BC #### [facility] [address] [place] [address] Dr. Karina Heath E. Coli O157 Not Applicable Normal Not Applicable [facility] Comment on above: Performed By: #### C BC #### [facility] [address] [place] [address] Dr. Karina Heath E. histolytica Not detected Normal NOT DETECTED [facility] Comment on above: Performed By: #### C BC #### [facility] [address] [place] [address] Dr. Karina Heath EAEC Not detected Normal NOT DETECTED [facility] Comment on above: Performed By: #### C BC #### [facility] [address] [place] [address] Dr. Karina Heaht EIEC Not detected Normal NOT DETECTED [facility] Comment on above: Performed By: #### C BC #### [facility] [address] [place] [address] Dr. Karina Heath EPEC Not detected Normal NOT DETECTED [facility] Comment on above: Performed By: #### C BC #### [facility] [address] [place] [address] Dr. Karina Heath ETEC Not detected Normal NOT DETECTED [facility] Comment on above: Performed By: #### C BC #### [facility] [address] [place] [address] Dr. Karina Heath G. Lamblia Not detected Normal NOT DETECTED [facility] Comment on above: Performed By: #### C BC #### [facility] [address] [place] [address] Dr. Karina REDDY CONTROLS PASSED Normal [facility] Comment on above: Performed By: #### C BC #### [facility] [address] [place] [address] Dr. Karina VELIZ AMARI HEADER GI PANEL BACTERIA Normal [facility] Comment on above: Performed By: #### C BC #### [facility] [address] [place] [address] Dr. Karina MARTIN ECOLI GI PANEL DIARRHEAGEN IC E.COLI / SHIGELLA Normal [facility] Comment on above: Performed By: #### C BC #### [facility] [address] [place] [address] Dr. Karina MARTIN INFO SEE BELOW Normal [facility] Comment on above: Result Comment: EAEC - Enteroaggregative E. Coli EPEC- Enteropathogenic E. Coli ETEC- Enterotoxigenic E. Coli lt/st STEC- Shigella-like toxin-producing E. Coli stx1/stx2 EIEC- Shigella/Enteroinvasive E. Coli Performed By: #### C BC #### [facility] [address] [address] [address] Karina MARTIN PARASITES GI PANEL PARASITES Normal [facility] Comment on above: Performed By: #### C BC #### [facility] [address] [address] [address] Karina MARTIN VIRUS GI PANEL VIRUSES Normal [facility] Comment on above: Performed By: #### C BC #### [facility] [address] [place] [address] Dr. Karina Heath Norovirus GI/GII Not detected Normal NOT DETECTED [facility] Comment on above: Performed By: #### C BC #### [facility] [address] [place] [address] Dr. Karina Heath P. Shigelloides Not detected Normal NOT DETECTED [facility] Comment on above: Performed By: #### C BC #### [facility] [address] [place] [address] Dr. Karina Heath Rotavirus A Not detected Normal NOT DETECTED [facility] Comment on above: Performed By: #### C BC #### [facility] [address] [place] [address] Dr. Karina Heath Salmonella Not detected Normal NOT DETECTED [facility] Comment on above: Performed By: #### C BC #### [facility] [address] [address] [address] Karina Heath Sapovirus Not detected Normal NOT DETECTED [facility] Comment on above: Performed By: #### C BC #### [facility] [address] [place] [address] Dr. Karina Heath STEC Detected Critically abnormal NOT DETECTED [facility] Comment on above: Performed By: #### C BC #### [facility] [address] [address] [address] Karina Heath Vibrio Not detected Normal NOT DETECTED [facility] Comment on above: Performed By: #### C BC #### [facility] [address] [place] [address] Dr. Karina Heath Vibrio Cholera Not detected Normal NOT DETECTED [facility] Comment on above: Performed By: #### C BC #### [facility] [address] [place] [address] Dr. Karina Heath Y. Enterocolitica Not detected Normal NOT DETECTED [facility] Comment on above: Performed By: #### C BC #### [facility] [address] [place] [address] Dr. Karina Heath [facility]on [facility]-17 SARS-CoV-2 (COVID-19) RNA MEETA+probe Ql (Unsp spec) Detected Critically abnormal NOT DETECTED [facility] Comment on above: Result Comment: This test is not yet approved or cleared by the [place] FDA. When there are no FDA-approved or cleared tests available, and other criteria are met, FDA can make tests available under an emergency access mechanism called an Emergency Use Authorization (EUA). The EUA for this test is supported by the Griffin of Health and Human Service's declaration that [...] #### P OCGLUC #### [facility] [address] [place] [address] Dr. Karina Heath CAROTID ART BILon 022 US CAROTID ART GWYN EXAMINATION: US MOORE TID [...] 2022-04-28 18:57 Normal [address] [facility] Basic Metabolic Panel w/ Ref jose to MGon 04-19-2022 Anion gap [Moles/Vol] 13 mmol/L 9 - 17 mmol/L [facility] Calcium [Mass/Vol] 9.1 mg/dL 8.6 - 10. 4 mg/dL [facility] Chloride [Moles/Vol] 97 mmol/L Low 98 - 10 7 mmol/L [facility] CO2 [Moles/Vol] 23 mmol/L 20 - 31 mmol/L [facility] Creatinine [Mass/Vol] 1.46 mg/dL High 0.70 - 1.20 mg/dL [facility] GFR >60 >60 mL/min [facility] GFR Non- 52 mL/min Low >60 [facility] Glucose [Mass/Vol] 154 mg/dL High 70 - 99 mg/dL [facility] Interpretation and review of laboratory results Abnormal [facility] Potassium [Moles/Vol] 4.0 mmol/L 3.7 - 5.3 mmol/L [facility] Sodium [Moles/Vol] 133 mmol/L Low 135 - 144 mmol/L [facility] [employer] Urea nitrogen (BldV) [Mass/Vol] 39 mg/dL High 6 - 20 mg/dL [facility] [employer] Urea nitrogen/Creatinine (Bld) [Mass ratio] 27 High [facility] CBC with Auto Differentialon 04-19-2022 Absolute Eos # 0.13 [facility] Absolute Immature Granulocyte 0.04 [facility] Absolute Lymph # 1.66 [facility] Absolute [place] # 0.72 [facility] Basophils (Bld) [#/Vol] 0.05 10*3/uL [facility] Basophils/100 WBC (Bld) 1 % 0 - 2 % [facility] Eosinophils/100 WBC (Bld) 1 % 1 - 4 % [facility] Hematocrit (Bld) [Volume fraction] 45.8 % 40.7 - 50.3 % [facility] Hemoglobin (Bld) [Mass/Vol] 15.2 g/dL 13.0 - 17.0 g/dL [facility] Immature granulocytes/100 WBC (Bld) 0 % 0 [facility] Interpretation and review of laboratory results Abnormal [facility] Lymphocytes/100 WBC (Bld) 16 % Low 24 - 43 % [facility] MCH (RBC) [Entitic mass] 28.1 pg 25.2 - 33.5 pg [facility] MCHC (RBC) [Mass/Vol] 33.2 g/dL 28.4 - 34.8 g/dL [facility] MCV (RBC) [Entitic vol] 84.8 fL 82.6 - 102.9 fL [facility] Monocytes/100 WBC (Bld) 7 % 3 - 12 % [facility] NRBC Automated 0.0 0.0 per 100 WBC [facility] Platelet distribution width (Bld) [Ratio] 13.4 % 11.8 - 14.4 % [facility] Platelet mean volume (Bld) [Entitic vol] 9.2 fL 8.1 - 13.5 fL [facility] Platelets (Bld) [#/Vol] 214 10*3/uL [facility] RBC (Bld) [#/Vol] 5.40 10*6/uL 4.21 - 5.7 7 m/uL [facility] Segmented neutrophils/100 WBC (Bld) 75 % High 36 - 65 % [facility] Segs Absolute 7.72 [facility] WBC (Bld) [#/Vol] 10.3 10*3/uL [facility] CT Head WO Contraston 2021 No acute intracrania l abnormality. [facility] EXAMINATION: CT OF THE HEAD [...] is intact. Extracranial soft tissues are unremarkable. [facility] Ajay Aggarwal M D - 04/19/2022 EXAMINATION: [...] are unremarkable. IMPRESSION: No acute intracranial abnormality. [employer] Work Phone: Radiology Study observation (narrative) [employer] Work Phone: CT Head WO ContrastOrdered B y: Ajay Aggarwal on 04-19-2022 [employer] Work Phone: Laboratory - Chemistry and C hemistry - challengeon 04-19-2022 GFR/1.73 sq M.predicted MDRD (S/P/Bld) [Vol rate/Area] [employer] Comment on above: Average GFR for 40-4 9 years old: 99 mL/min/1.73sq m Chronic Kidney Disease: <60 mL/min/1.73sq m Kidney failure: <15 mL/min/1.73sq m eGFR calculated using average adult body mass. Additional eGFR calculator available at: http://www.[employer]/multiple_crcl_2012.htm Stage 1: Some kidney damage normal GFR Stage 2: Mild kidney damage GFR 60-89 Stage 3: Moderate kidney damage GFR 30-59 Stage 4: Severe kidney damage GFR 15-29 Stage 5: Severe kidney damage GFR <15 ESRD - chronic treatment by dialysis or transplant Protime-INRon 04-19-2022 INR Coag (Bld) [Relative time] 1.0 {INR} [employer] Comment on above: Non-therapeutic Range: INR = 0.9-1.2 Therapeutic Range: Moderate Anticoagulant Intensity: INR = 2.0-3.0 High Anticoagulant Intensity: INR = 2.5-3.5 PT Coag (PPP) [Time] 13.4 s [email or web address] Troponinon 04-19-2022 Troponin, High Sensitivity 18 ng/L 0 - 22 ng/L [employer] Comment on above: High Sensitivity Troponin values cannot be compared with other Troponin methodologies. Patients with high levels of Biotin oral intake (i.e >5mg/day) may have falsely decreased Troponin levels. Samples collected within 8 hours of biotin intake may require additional information for diagnosis. [facility] CBC with Auto Differentialon 04-04-2022 Absolute Eos # 0.08 [facility] Absolute Immature Granulocyte <0.03 [facility] Absolute Lymph # 1.53 [facility] Absolute [place] # 0.58 [facility] Basophils (Bld) [#/Vol] 0.05 10*3/uL [facility] Basophils/100 WBC (Bld) 1 % 0 - 2 % [facility] Eosinophils/100 WBC (Bld) 1 % 1 - 4 % [facility] Hematocrit (Bld) [Volume fraction] 44.8 % 40.7 - 50.3 % [facility] Hemoglobin (Bld) [Mass/Vol] 15.0 g/dL 13.0 - 17.0 g/dL [facility] Immature granulocytes/100 WBC (Bld) 0 % 0 [facility] Interpretation and review of laboratory results Abnormal [facility] Lymphocytes/100 WBC (Bld) 16 % Low 24 - 43 % [facility] MCH (RBC) [Entitic mass] 27.9 pg 25.2 - 33.5 pg [facility] MCHC (RBC) [Mass/Vol] 33.5 g/dL 28.4 - 34.8 g/dL [facility] MCV (RBC) [Entitic vol] 83.4 fL 82.6 - 102.9 fL [facility] Monocytes/100 WBC (Bld) 6 % 3 - 12 % [facility] NRBC Automated 0.0 0.0 per 100 WBC [facility] Platelet distribution width (Bld) [Ratio] 13.8 % 11.8 - 14.4 % [facility] Platelet mean volume (Bld) [Entitic vol] 10.1 fL 8.1 - 13.5 fL [facility] Platelets (Bld) [#/Vol] 208 10*3/uL [facility] RBC (Bld) [#/Vol] 5.37 10*6/uL 4.21 - 5.7 7 m/uL [facility] Segmented neutrophils/100 WBC (Bld) 76 % High 36 - 65 % [facility] Segs Absolute 7.18 [facility] WBC (Bld) [#/Vol] 9.4 10*3/uL [facility] CT Head WO Contraston 2021 No acute intracrania l abnormality. 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 [facility] EXAMINATION: CT OF THE HEAD [...] of the visualized skull or soft tissues. 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 [employer] Work Phone: Radiology Study observation (narrative) [employer] Work Phone: CT Head WO ContrastOrdered B y: Faustino Milan on 04-04-2022 [employer] Work Phone: Comprehensive Metabolic Pane l w/ Reflex to MGon 04-04-2022 Albumin [Mass/Vol] 4.4 g/dL 3.5 - 5.2 g/dL [facility] Albumin/Globulin [Mass ratio] 1.4 {ratio} [facility] ALP (Bld) [Catalytic activity/Vol] 108 U/L 40 - 129 U/L [facility] ALT [Catalytic activity/Vol] 24 U/L 5 - 41 U/L [facility] Anion gap [Moles/Vol] 12 mmol/L 9 - 17 mmol/L [facility] AST [Catalytic activity/Vol] 21 U/L <40 [facility] Bilirubin [Mass/Vol] 0.17 mg/dL Low 0.3 - 1 .2 mg/dL [facility] Calcium [Mass/Vol] 9.6 mg/dL 8.6 - 10. 4 mg/dL [facility] Chloride [Moles/Vol] 98 mmol/L 98 - 10 7 mmol/L [facility] CO2 [Moles/Vol] 24 mmol/L 20 - 31 mmol/L [facility] Creatinine [Mass/Vol] 1.36 mg/dL High 0.70 - 1.20 mg/dL [facility] Free PSA/Total PSA [Mass fraction] 7.5 g/dL 6.4 - 8.3 g/dL [facility] GFR >60 >60 mL/min [facility] GFR Non- 56 mL/min Low >60 [facility] Glucose [Mass/Vol] 270 mg/dL High 70 - 99 mg/dL [facility] Interpretation and review of laboratory results Abnormal [facility] Potassium [Moles/Vol] 4.0 mmol/L 3.7 - 5.3 mmol/L [facility] Sodium [Moles/Vol] 134 mmol/L Low 135 - 144 mmol/L [facility] Urea nitrogen (BldV) [Mass/Vol] 24 mg/dL High 6 - 20 mg/dL [facility] Urea nitrogen/Creatinine (Bld) [Mass ratio] 18 [facility] Glucose, Whole Bloodon 04-04 Glucose [Mass/Vol] 256 mg/dL High 74 - 100 mg/dL [facility] Interpretation and review of laboratory results Abnormal [facility] Laboratory - Chemistry and C hemistry - challengeon 04-04-2022 GFR/1.73 sq M.predicted MDRD (S/P/Bld) [Vol rate/Area] [facility] Comment on above: Average GFR for 40-4 9 years old: 99 mL/min/1.73sq m Chronic Kidney Disease: <60 mL/min/1.73sq m Kidney failure: <15 mL/min/1.73sq m eGFR calculated using average adult body mass. Additional eGFR calculator available at: http://www.Advise Only.Amplitude/multiple_crcl_2012.htm Stage 1: Some kidney damage normal GFR Stage 2: Mild kidney damage GFR 60-89 Stage 3: Moderate kidney damage GFR 30-59 Stage 4: Severe kidney damage GFR 15-29 Stage 5: Severe kidney damage GFR <15 ESRD - chronic treatment by dialysis or transplant Vital Signs Date Time Vital Sign Value Performing Clinician Mgaen banks 10-06-2024 19:40-0500 Body temperature 98.49 [degF] Stanley Mckenzie MD Work Phone: [facility] 10-06-2024 19:40-0500 Diastolic blood pressure 91 mm[Hg] Stanley Mckenzie MD Work Phone: [facility] 10-06-2024 19:40-0500 Heart rate 74 /min Stanley Mckenzie MD Work Phone: [employer] 10-06-2024 19:40-0500 Respiratory rate 16 /min Stanley Mckenzie MD Work Phone: [facility] 10-06-2024 19:40-0500 SaO2% (BldA) [Mass fraction] 96 % Stanley Mckenzie MD Work Phone: [facility] 10-06-2024 19:40-0500 Systolic blood pressure 148 mm[Hg] Stanley Mckenzie MD Work Phone: [facility] 10-04-2024 06:00-0500 Body mass index (BMI) [Ratio] 26.03 kg/m2 Stanley Mckenzie MD Work Phone: [facility] 10-04-2024 06:00-0500 Body weight 82.3 kg Stanley Mckenzie MD Work Phone: [facility] 09-29-2024 16:41-0500 Body height 177.8 cm Stanley Mckenzie MD Work Phone: [facility] 09-28-2024 13:00-0500 Diastolic blood pressure 76 mm[Hg] Rashad Chavez MD Work Phone: [facility] 09-28-2024 13:00-0500 Heart rate 115 /min Rashad Chavez MD Work Phone: [facility] 09-28-2024 13:00-0500 Respiratory rate 25 /min Rashad Chavez MD Work Phone: [facility] 09-28-2024 13:00-0500 SaO2% (BldA) [Mass fraction] 100 % Rashad Chavez MD Work Phone: [facility] 09-28-2024 13:00-0500 Systolic blood pressure 157 mm[Hg] Rashad Chavez MD Work Phone: [employer] 09-28-2024 11:47-0500 Body temperature 37.0 Rashad Chavez MD Work Phone: [facility] 09-28-2024 11:05-0500 Body temperature 100.9 [degF] Rashad Chavez MD Work Phone: [employer] 09-28-2024 10:19-0500 Body mass index (BMI) [Ratio] 27.84 kg/m2 Rashad Chavez MD Work Phone: [facility] 09-28-2024 10:19-0500 Body weight 88 kg Rashad Chavez MD Work Phone: [facility] 09-28-2024 09:48-0500 Body temperature 37.0 Rashad Chavez MD Work Phone: [facility] 01-22-2024 15:44-0400 Body temperature 97.81 [degF] Sarmad Daly MD Work Phone: [employer] 01-22-2024 15:44-0400 Diastolic blood pressure 85 mm[Hg] Sarmad Daly MD Work Phone: [employer] 01-22-2024 15:44-0400 Heart rate 70 /min Sarmad Daly MD Work Phone: [employer] 01-22-2024 15:44-0400 Respiratory rate 11 /min Sarmad Daly MD Work Phone: [employer] 01-22-2024 15:44-0400 SaO2% (BldA) [Mass fraction] 98 % Sarmad aDly MD Work Phone: [employer] 01-22-2024 15:44-0400 Systolic blood pressure 138 mm[Hg] Sarmad Daly MD Work Phone: [employer] 01-21-2024 21:40-0400 Body height 177.8 cm Sarmad Daly MD Work Phone: [facility] [employer] 01-21-2024 21:40-0400 Body mass index (BMI) [Ratio] 27.93 kg/m2 Sarmad Daly MD Work Phone: [facility] [employer] 01-21-2024 21:40-0400 Body weight 88.3 kg Sarmad Daly MD Work Phone: [facility] [employer] 01-19-2024 01:32-0400 Diastolic blood pressure 82 mm[Hg] Steve Alvarado MD Work Phone: [facility] [employer] 01-19-2024 01:32-0400 Heart rate 87 /min Steve Alvarado MD Work Phone: [facility] [employer] 01-19-2024 01:32-0400 Respiratory rate 16 /min Steve Alvarado MD Work Phone: [facility] [employer] 01-19-2024 01:32-0400 SaO2% (BldA) [Mass fraction] 99 % Steve Alvarado MD Work Phone: [facility] [employer] 01-19-2024 01:32-0400 Systolic blood pressure 126 mm[Hg] Steve Alvaardo MD Work Phone: [facility] [employer] 01-19-2024 00:46-0400 Body temperature 98.71 [degF] Steve Alvarado MD Work Phone: [facility] [employer] 01-18-2024 23:14-0400 Body height 177.8 cm Steve Alvarado MD Work Phone: [facility] [employer] 01-18-2024 23:14-0400 Body mass index (BMI) [Ratio] 27.26 kg/m2 Steve Alvarado MD Work Phone: [facility] [employer] 01-18-2024 23:14-0400 Body weight 86.18 kg Steve Alvarado MD Work Phone: [facility] 09-24-2023 18:52-0500 Diastolic blood pressure 85 mm[Hg] Reginaldo Beltran MD Work Phone: [facility] 09-24-2023 18:52-0500 Heart rate 98 /min Reginaldo Beltran MD Work Phone: [facility] 09-24-2023 18:52-0500 Respiratory rate 18 /min Reginaldo Beltran MD Work Phone: [facility] 09-24-2023 18:52-0500 SaO2% (BldA) [Mass fraction] 96 % Reginaldo Beltran MD Work Phone: [facility] 09-24-2023 18:52-0500 Systolic blood pressure 140 mm[Hg] Reginaldo Beltran MD Work Phone: [facility] 09-24-2023 17:07-0500 Body temperature 98.91 [degF] Reginaldo Beltran MD Work Phone: [facility] 09-22-2023 12:07-0500 SaO2% (BldA) [Mass fraction] 98.9 % Reginaldo Beltran MD Work Phone: [facility] 09-22-2023 04:00-0500 Body height 182.9 cm Reginaldo Beltran MD Work Phone: [facility] 09-22-2023 04:00-0500 Body mass index (BMI) [Ratio] 25.58 kg/m2 Reginaldo Beltran MD Work Phone: [facility] 09-22-2023 04:00-0500 Body weight 85.55 kg Reginaldo Beltran MD Work Phone: [facility] 09-21-2023 16:54-0500 SaO2% (BldA) [Mass fraction] 99.9 % Reginaldo Beltran MD Work Phone: [facility] 04-20-2022 00:26-0400 SaO2% (BldA) [Mass fraction] 97 % Lulú Bush DO Work Phone: [facility] 04-20-2022 00:15-0400 Diastolic blood pressure 88 mm[Hg] Lulú Bush DO Work Phone: [facility] [employer] 04-20-2022 00:15-0400 Heart rate 100 /min Lulú Bush DO Work Phone: [facility] [employer] 04-20-2022 00:15-0400 Respiratory rate 19 /min Lulú Bush DO Work Phone: [facility] [employer] 04-20-2022 00:15-0400 Systolic blood pressure 145 mm[Hg] Lulú Bush DO Work Phone: [facility] [employer] 04-19-2022 21:45-0400 Body temperature 96.8 [degF] Lulú Bush DO Work Phone: [facility] [employer] 04-04-2022 23:25-0400 Diastolic blood pressure 106 mm[Hg] Cheng Lira MD [facility] [employer] 04-04-2022 23:25-0400 Systolic blood pressure 198 mm[Hg] Cheng Lira [facility] [employer] 04-04-2022 23:15-0400 SaO2% (BldA) [Mass fraction] 94 % Cheng Lira MD [facility] [employer] 04-04-2022 21:58-0400 Body height 177.8 cm Cheng [facility]ira MD [facility] [employer] 04-04-2022 21:58-0400 Body mass index (BMI) [Ratio] 27.26 kg/m2 Cheng Lira MD [facility] [employer] 04-04-2022 21:58-0400 Body temperature 97.2 [degF] Cheng Lira MD [facility] 04-04-2022 21:58-0400 Body weight 86.18 kg Cheng Lira MD [facility] [employer] 04-04-2022 21:58-0400 Heart rate 84 /min Cheng Lira MD [facility] [employer] 04-04-2022 21:58-0400 Respiratory rate 20 /min Cheng Lira MD [facility] Encounters Encounter Date Encounter Type Care Provider Facility Start: 12-11-2024 End: 12-11-2024 ambulatory VINCENT Campos Veena [facility] Start: 12-11-2024 End: 12-11-2024 Subsequent hospital visit by physician Vincent Winters MD Work Phone: [facility] Start: 10-14-2024 End: 10-14-2024 ambulatory RHODA LUNA 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 Emergency Department Comment on above: Hypertensive encepha lopathy (Primary Dx); Diabetic ketoacidosis with coma associated with type 2 diabetes mellitus (HCC); Pneumonia of left lower lobe due to infectious organism; Altered mental status, unspecified altered mental status type; ABHIJTI (acute kidney injury) (HCC); Acute respiratory failure with hypoxia; Non compliance w medication regimen Start: 02-28-2024 End: 02-29-2024 ambulatory Felix LUKE Facility:[facility] Start: 02-28-2024 End: 02-28-2024 Patient encounter procedure Felix LUKE [facility] [place] Start: 01-19-2024 End: 01-22-2024 Evaluation and management of inpatient Sarmad Daly MD Work Phone: [facility] Onc/Med Surg Start: 01-18-2024 End: 01-19-2024 Emergency department patient visit Steve Alvarado MD Work Phone: [facility] ED Comment on above: Hypertensive encepha lopathy (Primary Dx); Hypertensive emergency Start: 10-16-2023 ambulatory VINCENT Campos Veena [facility] Start: 09-21-2023 End: 09-24-2023 Evaluation and management of inpatient NEUROLOGY CONSULT [facility] Start: 09-21-2023 End: 09-24-2023 Evaluation and management of inpatient Reginaldo Beltran MD Work Phone: [facility] Med Surg Comment on above: Acute respiratory fa ilure Start: 08-12-2023 End: 08-13-2023 ambulatory Jarod Aviles DIRECTOR OF COUNSELING-EXCELLENCE SPECIALIST Facility:[facility] Start: 05-13-2023 End: 05-14-2023 ambulatory Jarod Aviles DIRECTOR OF COUNSELING-EXCELLENCE SPECIALIST Facility:[facility] Start: 02-11-2023 End: 02-12-2023 ambulatory Jarod Aviles DIRECTOR OF COUNSELING-EXCELLENCE SPECIALIST Facility:[facility] Start: 01-11-2023 End: 01-12-2023 [...] Evaluation and management of inpatient JACQUELINE Orantes TARA Facility:[facility] Start: 10-13-2022 End: 10-14-[address] VINCENT WINTERS . Facility:[facility] Start: 10-13-2022 End: 10-13-[address] VINCENT WINTERS . Facility:[facility] Start: 09-24-2022 End: 09-24-[address] VINCENT WINTERS . Facility:[facility] Start: 06-01-2022 End: 06-01-[address] VINCENT WINTERS . Facility:[facility] Start: 04-28-2022 End: 04-29-[address] VINCENT WINTERS . Facility:[facility] Start: 04-19-2022 End: 04-20-2022 Emergency department patient visit Lulú Bush DO Work Phone: [facility] ED Comment on above: Essential hypertensi on (Primary Dx); Acute headache, unspecified headache type Start: 04-04-2022 End: 04-05-2022 Emergency department patient visit Cheng Lira MD [facility] ED Comment on above: Acute nonintractable headache, unspecified headache type (Primary Dx); Elevated blood pressure reading Start: 03-18-2022 End: 03-19-[address] VINCENT WINTERS . Facility: Procedures Date Procedure Procedure [...] Start: 10-05-2024 EEG VIDEO MONITORING Rafa Restrepo DIRECTOR OF COUNSELING - EXCELLENCE SPECIALIST Work Phone: Start: 10-05-2024 Electroencephalogram w/rec awake&drowsy Addy Chirri DO Work Phone: Start: 10-05-2024 BASIC METABOLIC PANE L W/ REFLEX TO MG FOR LOW K Sussy Mtz MD Work Phone: Start: 10-05-2024 Blood count complete auto&auto difrntl wbc Sussy Mtz MD Work Phone: Start: 10-04-2024 Glucose blood reagent strip Rhoda Luna MD Work Phone: Start: 10-04-2024 Glucose blood reagent strip Rhoda Luna MD Work Phone: Start: 10-04-2024 GENERIC LABORATORY CHARGE Mary Lou Tom DO Work Phone: Start: 10-04-2024 End: 10-04-2024 Glucose body fluid other than blood Mary Lou Tom DO Work Phone: Start: 10-04-2024 Iadna nos amplified probe tq each organism Mary Lou Tom DO Work Phone: Start: 10-04-2024 MENINGITIS ENCEPHALI TIS PANEL CSF, MOLECULAR Mary Lou Ríosd DO Work Phone: Start: 10-04-2024 Syphilis test non-tr eponemal antibody qual Mary Lou Ríosd DO Work Phone: Start: 10-04-2024 Diagnostic lumbar sp inal puncture w/fluor or ct Mary Lou Kiera Negro DO Work Phone: Start: 10-04-2024 Cytp flu washgs/brus hings xcpt c/v smrs interpj Mary Lou Kiera Negro DO Work Phone: Start: 10-04-2024 Glucose blood reagent strip Rhoda Luna MD Work Phone: Start: 10-04-2024 BASIC METABOLIC PANE L W/ REFLEX TO MG FOR LOW K Sussy Mtz MD Work Phone: Start: 10-04-2024 Prothrombin time Lisy mireya Qureshi Negro DO Work Phone: Start: 10-04-2024 SURGICAL PATHOLOGY REPORT Barretolandon Tom DO Work Phone: Start: 10-03-2024 Glucose blood reagent strip Rhoda Luna MD Work Phone: Start: 10-03-2024 Glucose blood reagent strip Rhoda Luna MD Work Phone: Start: 10-03-2024 Assay of thiamine-vitamin b-1 Mary Lou Kiera Negro DO Work Phone: Start: 10-03-2024 GENERIC LABORATORY CHARGE Barretolandon Tom DO Work Phone: Start: 10-03-2024 T. PALLIDUM AB Barretojunior Tom DO Work Phone: Start: 10-03-2024 Glucose blood reagent strip Rhoda Luna MD Work Phone: Start: 10-03-2024 Myocardial spect mul tiple studies Aleja Wagoner DIRECTOR OF COUNSELING - CLERK CHECKER Work Phone: Start: 10-03-2024 Glucose blood reagent strip Rhoda Luna MD Work Phone: Start: 10-03-2024 BASIC METABOLIC PANE L W/ REFLEX TO MG FOR LOW K Sussy Shaq Wagner STEVENS Work Phone: Start: 10-03-2024 Blood count complete [...] REFLEX TO MG FOR LOW K Sussy New Wagner STEVENS Work Phone: Start: 10-02-2024 End: 10-02-2024 Blood count complete auto&auto difrntl wbc Sussy Mtz MD Work Phone: Start: 10-01-2024 End: 10-01-2024 Glucose blood reagent strip Stanley Mckenzie MD Work Phone: Start: 10-01-2024 Glucose blood reagent strip Stanley Mckenzie MD Work Phone: Start: 10-01-2024 Glucose blood reagent strip Stanley Mckenzie MD Work Phone: Start: 10-01-2024 EXTUBATION Aidee bryant MD Work Phone: Start: 3 End: 10-01-2024 Calcium ionized Sirena Sanchez MD Work Phone: Start: 10-01-2024 BASIC METABOLIC PANE L W/ REFLEX TO MG FOR LOW K Sussynoreen Mtz MD Work Phone: Start: 10-01-2024 Blood [...] brain brain stem w/o contrast material Addy Floresri DO Work Phone: Start: 09-30-2024 Calcium ionized [...] Phone: Start: 09-29-2024 Glucose blood reagent strip tSanley Mckenzie MD Work Phone: Start: 09-29-2024 Acute [...] Work Phone: Start: 09-28-2024 RESPIRATORY PANEL, M OLECULAR, WITH COVID-19 Ann Lopez MD Work Phone: [...] instr mnt chem analyzers pr date Rashad Chavez MD Work Phone: Start: 09-28-2024 Urinalysis microscopic only Rashad Chavez MD Work Phone: Start: 09-28-2024 Urnls dip stick/tabl et rgnt auto w/o microscopy Rashad Chavez MD Work Phone: Start: 09-28-2024 BLOOD GAS, ARTERIAL Marcelino Chavez MD Work Phone: Start: 09-28-2024 Ct thorax w/contrast material Rashad Chavez MD Work Phone: Start: 09-28-2024 Ecg routine ecg w/le ast 12 lds w/i&r Rashad Chavez MD Work Phone: Start: 09-28-2024 End: 09-28-2024 Ct head/brain w/o contrast material Rashad Chavez MD Work Phone: Start: 09-28-2024 Blood typing serologic abo Rashad Chavez MD Work Phone: Start: 09-28-2024 End: 09-28-2024 Comprehensive metabolic panel Rashad gabriel MD Work Phone: Start: 01-22-2024 Glucose [...] 01-19-2024 Syphilis test non-tr eponemal antibody qual Stayc Brown MD Work Phone: Start: 01-19-2024 End: 01-19-2024 Cul bact xcpt urine blood/stool aerobic isol Stacy Brown MD Work Phone: Start: 01-19-2024 Diagnostic lumbar sp inal puncture w/fluor or ct Stacy Brown MD Work Phone: Start: 01-19-2024 ARTERIAL BLOOD GAS, POC Sarmad Daly MD Work Phone: Start: 01-19-2024 End: 01-19-2024 Basic metabolic panel calcium total Xohcitl Hampton MD Work Phone: Start: 01-19-2024 Radiologic [...] with white cell differential, automated Cecil Ivan DIRECTOR OF COUNSELING-[facility] Work Phone: Start: 09-24-[address] janessa Ivan APRN-[facility] Work Phone: Start: 09-23-2023 Electroencephalogram w/rec awake&drowsy Aracely Richard [facility] Work Phone: Start: 09-23-2023 Echo tthrc r-t 2d w/ wom-mode compl spec&colr d Cecil Ivan DIRECTOR OF COUNSELING-[facility] Work Phone: Start: 09-23-2023 End: 09-23-2023 Renal function panel Cecil Ivan [facility] Work Phone: Start: 09-23-2023 Gluc bld gluc mntr d ev cleared fda spec home use Karl Bird MD Start: 09-22-2023 Gluc bld gluc mntr d ev cleared fda spec home use Karl Bird MD Start: 09-22-2023 Gluc bld gluc mntr d ev cleared fda spec home use Karl Bird MD Start: 09-22-2023 Mri brain brain stem w/o contrast material Aracely Richard [facility] Work Phone: Start: 09-22-2023 End: 09-22-2023 Gluc bld gluc mntr dev cleared fda spec home use Karl Bird MD Start: 09-22-2023 Iadna multiple organ isms amplified probe tq Cecil Larabrianna DIRECTOR OF COUNSELING-[facility] Work Phone: Start: 09-22-2023 End: 09-22-2023 Drug tst prsmv instrmnt chem analyzers pr date Cecil Moralesjennifer [facility] Work Phone: Start: 09-22-2023 Gluc bld gluc mntr d ev cleared fda spec home use Karl Bird MD Start: 09-22-2023 Blood gases any comb ination ph pco2 po2 co2 hco3 Karl Bird MD Start: 09-22-2023 VENTILATOR SETTINGS Sat sumit Bird MD Start: 09-22-2023 Gluc bld gluc [...] Cultyp nuc acid amp prb cult/isolate ea orgnism Karl Bird MD Start: 09-21-2023 Culture bacterial [...] Work Phone: Start: 09-21-2023 Comprehensive metabolic panel Reginalod Beltran MD Work Phone: Start: 09-21-2023 Drug [...] REFLEX TO MG FOR LOW K Lulú Kiera Bush DO Work Phone: Start: 04-19-2022 Prothrombin time Caden Qureshi Bush DO Work Phone: Start: 04-19-2022 Ct head/brain w/o co ntrast material Lulú Qureshi Bush DO Work Phone: Start: 04-04-2022 Ct head/brain w/o co ntrast material Cheng Lira MD Start: 04-04-2022 GLUCOSE, WHOLE BLOOD Se renée Lira MD Start: 04-04-2022 Blood count complete auto&auto difrntl wbc Cheng Lira MD Appendectomy Felix MARLY Incision and drainag e of abscess Felix MARLY Comment on above: left arm Plan of Treatment Date Care Activity Detail Author Start: 10-14-2025 GFR test (Diabetes, CKD 3-4, OR last GFR 15-59) GFR test (Diabetes, CKD 3-4, OR last GFR 15-59) [facility] Start: 10-06-2025 [facility] Start: 10-05-2025 GFR test (Diabetes, CKD 3-4, OR last GFR 15-59) GFR test (Diabetes, CKD 3-4, OR last GFR 15-59) [facility] Start: 10-01-2025 Lipid panel [facility] Start: 09-28-2025 GFR test (Diabetes, CKD 3-4, OR last GFR 15-59) GFR test (Diabetes, CKD 3-4, OR last GFR 15-59) [facility] Start: 09-28-2025 Hemoglobin A1c measurement [facility] Start: 03-07-2025 End: 03-07-2025 Patient encounter procedure 03/07/2025 12:00 PM EDT Office Visit [facility] [address] [place] [address] Adie Sharma, DO [address] [place] [address] Abnormal kidney function/ type two DM [facility] Comment on above: Abnormal kidney function/ type two DM Start: 03-06-2025 End: 03-06-2025 Patient encounter procedure 03/06/2025 10:00 AM EDT Office Visit [address] [place] [address] Levi Hilton MD [address] [place] [address] [address] [place] [address] BLE Edema; 3 month follow up [facility] Comment on above: BLE Edema; 3 month follow up Start: 01-21-2025 [facility] Start: 01-17-2025 GFR test (Diabetes, CKD 3-4, OR last GFR 15-59) GFR test (Diabetes, CKD 3-4, OR last GFR 15-59) [facility] Start: 12-15-2024 End: 12-15-2024 Nursing evaluation of patient and report 12/15/2024 9:45 AM EST Nurse Only Ailyn Supervisor [place] - Ailyn [address] [facility] [place], [facility] [address] [place] [address] [employer]- Ailyn Supervisor [place] Sulaiman Robertson Comment on above: [employer]- Start: 12-11-2024 End: 12-11-2024 Patient encounter procedure 12/11/2024 2:30 PM EST Office Visit Ailyn Supervisor [place] - Rony [address] [place] [id number] Levi Keith MD [address] [facility] [place] [address] [facility] Supervisor [place] - [place] Comment on above: loop Start: 11-02-2024 End: 10-02-2025 MR Brain WO and W contrast IV [facility] Start: 10-13-2024 End: 10-06-2025 Basic metabolic 2000 panel - Serum or Plasma [facility] Start: 06-17-2024 COVID-19 Vaccine ( season) COVID-19 Vaccine ( season) [facility] Start: 06-17-2024 COVID-19 Vaccine ( season) COVID-19 Vaccine ( season) [facility] Start: 06-17-2024 [facility] Start: 05-17-2024 Influenza vaccination [facility] Start: 05-17-2024 [facility] Start: 04-19-2024 Hemoglobin A1c measurement [facility] Start: 12-20-2023 Shingles vaccine (1 of 2) Shingles vaccine (1 of 2) [facility] Start: 12-20-2023 [facility] Start: 06-17-2023 COVID-19 VACCINE ( season) COVID-19 VACCINE ( season) [facility] Start: 06-17-2023 Influenza vaccination INFLUENZA VACCINE (#1) [facility] Start: 06-17-2023 [facility] Start: 10-31-2022 Lipid panel [facility] Start: 10-27-2022 Hemoglobin A1c measurement A1C test (Diabetic or Prediabetic) [facility] Start: 06-17-2022 Influenza vaccination [facility] Start: 01-25-2022 Hemoglobin A1c measurement A1C test (Diabetic or Prediabetic) [facility] Start: 04-21-2021 COVID-19 Vaccine (2 - Booster for Asher series) COVID-19 Vaccine (2 - Booster for Asher series) [facility] Start: 2018 Screening for malignant neoplasm of colon [facility] Start: 2013 Lipid panel LIPID SCREENING [facility] Start: 1992 DTaP/Tdap/Td vaccine (1 - Tdap) DTaP/Tdap/Td vaccine (1 - Tdap) [facility] Start: 1992 Hepatitis B vaccine (1 of 3 - 19+ 3-dose series) Hepatitis B vaccine (1 of 3 - 19+ 3-dose series) [facility] Start: 1992 Hepatitis B vaccine (1 of 3 - Risk 3-dose series) Hepatitis B vaccine (1 of 3 - Risk 3-dose series) [facility] Start: 1992 Pneumococcal 50+ years Vaccine (1 of 2 - PCV) Pneumococcal 50+ years Vaccine (1 of 2 - PCV) [facility] Start: 1992 Third diphtheria, tetanus and acellular pertussis (DTaP) vaccination TDAP (ADULT) [facility] Start: 1992 [facility] Start: 12-20-1991 Diabetic retinal exam Diabetic retinal exam [facility] Start: 12-20-1991 Glaucoma screening [facility] Start: 12-20-1991 Hepatitis C screening [facility] Start: 12-20-1991 Urine screening for protein [facility] Start: 1988 HIV screening [facility] Start: 1985 Depression Screen Depression Screen [facility] Start: 1985 [facility] Start: 12-20-1983 Diabetic foot examination [facility] Start: 12-20-1979 Pneumococcal 0-64 years Vaccine (1 - PCV) Pneumococcal 0-64 years Vaccine (1 - PCV) [facility] Start: 12-20-1979 Pneumococcal 0-64 years Vaccine (1 of 2 - PCV) Pneumococcal 0-64 years Vaccine (1 of 2 - PCV) [facility] Start: 12-20-1979 PNEUMOCOCCAL VACCINE SERIES (1 - PCV) PNEUMOCOCCAL VACCINE SERIES (1 - PCV) [facility] Start: 12-20-1979 [facility] Start: 1973 Hepatitis B vaccine (1 of 3 - 3-dose series) Hepatitis B vaccine (1 of 3 - 3-dose series) [facility] Start: 1973 Hepatitis C screening HEPATITIS C VIRUS SCREENING [facility] Start: 1973 Tetanus vaccination TETANUS [facility] Start: 1973 [facility] Bacteria identified in Blood by Culture [facility] End: 01-26-2024 Basic metabolic 2000 panel - Serum or Plasma [facility] Work Phone: End: 10-01-2024 Basic metabolic 2000 panel - Serum or Plasma Basic Metabolic Panel Lab Timed Every 4 Hours (Lab) for 3 Days starting 09/28/2024 until 10/01/2024 [facility] Comment on above: Every 4 Hours (Lab) for 3 Days starting 09/28/2024 until 10/01/2024 End: 10-09-2024 Basic metabolic 2000 panel - Serum or Plasma [facility] End: 01-19-2024 BRUCELLA SEROLOGY [facility] End: 01-25-2024 CBC W Auto Differential panel - Blood [facility] Continuous pulse oximetry TRIP N [facility] Continuous pulse oximetry n [facility] End: 09-21-2023 CT Cervical spine WO contrast [facility] Comment on above: One Time for 1 Occurrences starting 03/2023 until 09/21/2023 CT Head WO contrast CT Head W/O Contrast Imaging CODE STROKE 01/18/2024 10:52 PM EDT [facility] Culture, Blood 1 [facility] End: 09-28-2024 Culture, Blood 1 [facility] Comment on above: One Time for 1 Occurrences starting 09/16 until 09/28/2024 End: 09-28-2024 Culture, Blood 2 [facility] Comment on above: One Time for 1 Occurrences starting 09/16 until 09/28/2024 Culture, CSF (with G natasha Stain) [facility] End: 01-19-2024 Culture, Respiratory [facility] EKG 12 Lead EKG 12 Lead ECG STAT 01/18/2024 10:42 PM EDT [facility] [employer] EKG 12 Lead EKG 12 Lead ECG STAT 09/28/2024 9:20 AM EST [facility] End: 01-22-2024 Electroencephalogram w/rec awake&drowsy [facility] Glucose [Mass/volume ] in Serum or Plasma [facility] End: 09-28-2024 Glucose [Mass/volume] in Serum or Plasma [facility] Comment on above: One Time for 1 Occurrences starting 09/16 until 09/28/2024 As Needed until disc ontinued starting 09/28/2024 Glucose [Mass/volume ] in Serum or Plasma [facility] End: 09-28-2024 Hemoglobin A1c/Hemoglobin.total in Blood [facility] Comment on above: One Time for 1 Occurrences starting 09/16 until 09/28/2024 End: 09-22-2023 HERPES SIMPLEX VIRUS (HSV) TYPES 1/2, DNA PCR [facility] Comment on above: One Time for 1 Occurrences starting 04/2023 until 09/22/2023 End: 01-19-2024 Lumbar Puncture [facility] [employer] Work Phone: End: 01-26-2024 Magnesium [Mass/volume] in Serum or Plasma [facility] End: 10-01-2024 Magnesium [Mass/volume] in Serum or Plasma Magnesium Lab Timed Every 4 Hours (Lab) for 3 Days starting 09/28/2024 until 10/01/2024 [facility] Comment on above: Every 4 Hours (Lab) for 3 Days starting 09/28/2024 until 10/01/2024 Mechanical Ventilati on with default initial settings Mechanical Ventilation with default initial settings Respiratory Care STAT Every 4hr until discontinued starting 09/28/2024 [facility] Comment on above: Every 4hr until discontinued starting End: 01-23-2024 METANEPHRINES URINE [facility] [employer] End: 01-22-2024 MISCELLANEOUS SENDOUT ENC2 [facility] - autoimmune/paraneoplastic encephalitis panel [facility] MISCE[facility]OUS SENDOU T Van lab test ID: ENC 2 [facility] End: 01-22-2024 Oligoclonal Banding [facility] Oxygen therapy [Mini mum Data Set] [facility] Oxygen therapy [[facility] mum Data Set] [facility] End: 01-26-2024 Phosphate [Mass/volume] in Serum or Plasma [facility] End: 10-01-2024 Phosphate [Mass/volume] in Serum or Plasma Phosphorus Lab Timed Every 4 Hours (Lab) for 3 Days starting 09/28/2024 until 10/01/2024 [facility] Comment on above: Every 4 Hours (Lab) for 3 Days starting 09/28/2024 until 10/01/2024 End: 01-19-2024 Q FEVER ANTIBODY [facility] End: 09-28-2024 Radiologic exam abdomen 1 view XR ABDOMEN FOR NG/OG/NE TUBE PLACEMENT Imaging Routine Once for 1 Occurrences starting 09/28/2024 until 09/28/2024 [facility] Comment on above: Once for 1 Occurrences starting 09/28/20 until 09/28/2024 End: 10-05-2024 US Heart Transesophageal [facility] End: 01-19-2024 West Nile Virus, CSF [facility] Immunizations Immunization Date Immunization Notes Care Provider Maylin ibarra 02-24-2021 SARS-CoV-2 (COVID-19 ) Ad26 vaccine, recombinant [facility] Comment on above: Result Comment: 2023: TPV40 NEGATED: Highlighted row has not occurred!09-04-2019 influenza virus vaccine, unspecified formulation [facility] Payers Date Payer Category Payer Unknown 1975 Unknown [id number] 2.16.84 0.1.952492.3.579.2.593 1975 Unknown [id number] 2.16.84 0.1.270631.3.579.2.593 1975 Unknown [id number] 2.16.84 0.1.286122.3.579.2.593 1973 Unknown [id number] 2.16.84 0.1.635046.3.579.2.593 1973 Unknown [id number] 2.16.84 0.1.453647.3.579.2.593 1973 Unknown [id number] 2.16.84 0.1.948568.3.579.2.593 1973 Unknown [id number] 2.16.84 0.1.592661.3.579.2.593 1973 Unknown [id number] 2.16.84 0.1.013318.3.579.2.593 1973 Unknown [id number] 2.16.84 0.1.137223.3.579.2.593 1973 Unknown [id number] 2.16.84 0.1.404892.3.579.2.593 1973 Unknown [id number] 2.16.84 0.1.312425.3.579.2.593 1973 Unknown [id number] 2.16.84 0.1.052371.3.579.2.593 1973 Unknown [id number] 2.16.84 0.1.469741.3.579.2.593 1973 Unknown [id number] 2.16.84 0.1.827717.3.579.2.593 1973 Unknown [id number] 2.16. 840.1.060721.3.579.2.196 1973 Unknown [id number] 2.16. 840.1.104255.3.579.2.196 1973 Unknown [id number] 2.16. 840.1.527178.3.579.2.196 1973 Unknown [id number] 2.16.84 0.1.798590.3.579.2.1286 1973 Unknown [id number] 2.16.8 40.1.460952.3.579.2.983 1973 Unknown [id number] 2.16.8 40.1.660478.3.579.2.727 1973 Unknown [id number] 2.16. 840.1.185142.3.579.2.175 1973 Unknown [id number] 2.16. 840.1.170237.3.579.2.175 1973 Unknown [id number] 2.16.8 40.1.241698.3.579.2.173 1973 Unknown [id number] 2.16.8 40.1.818077.3.579.2.173 1973 Unknown [id number] 2.16.8 40.1.803122.3.579.2.173 1973 Unknown [id number] 2.16.8 40.1.514921.3.579.2.173 1959 Self-pay 1961 Unknown [id number] 1. 2.840.138234.1.13.239.2.7.3.639628.315 Social History Date Type Detail Facility Start: 10-27-2021 End: 12-11-2024 Tobacco smoking status [facility] Never smoked tobacco [employer] Phone: Start: 10-27-2021 End: 12-11-2024 Tobacco use and exposure User of smokeless tobacco [employer] Phone: History of tobacco use Chews Tobacco [employer] Phone: Start: 04-04-2022 End: 12-11-2024 Alcohol intake Ex-drinker (finding) [employer] Phone: Start: 1975 Sex Assigned At Not on file B ON AMT ([employer]) Phone: Start: 03-25-2022 End: 04-19-2022 Exposure to SARS-CoV-2 (event) Not sure [employer] Phone: Start: 09-23-2023 Tobacco use and exposure Smoke less tobacco non-user [facility] Start: 09-23-2023 End: 10-01-2024 History of Social function [facility] Start: 09-23-2023 End: 10-01-2024 Tobacco use panel [facility] Has the electric, [employer], [employer], or water company threatened to shut off services in your home in past 12Mo [facility] Medical Equipment Procedure Code Equipment Code Equipment Origin al Text Equipment Identifier Dates ()[id number] Start: 10-05-2024 Use it once daily [id number] Start: 10-06-2024 1 each by Does n ot apply route daily [id number] Start: 10-06-2024 Clinical Notes 04-19-2022 to 10-14-2024 Note Date & Type Note Facility 10-14-2024 Evaluation note Diagnosis Stage 3a chronic kidney disease (HCC) documented in this encounter [facility]12-21-2024 History of Present illness Narrative* Delmy Anderson [...] ATORVASTATIN LOSARTAN HUMALOG AMLODIPINE CARVEDILOL Additional Documentation: X9 TO RN 10/06, 12:16P. $0. (2 FRIDGE). * Gabriela Rivas RN - 10/06/2024 11:52 AM EST RN called patient daughter for discharge today, to go over discharge education instructions since patient lives with her. Daughter will be able to transport after she is off work around 1900. * Mary Lou Tom DO - 10/06/2024 8:55 AM EST [facility] IN-PATIENT SERVICE NEUROLOGY PROGRESS NOTE [...] night. He was taken tot ED at [facility]. Found to have significant elevation in [...] He was transferred to medical ICU at [facility]. Currently he is seen here at [place] [facility]. Propofol drip is currently running. He [...] fluro performed by Vincent Kuhn DO at [facility] OR Medications during admission: amLODIPine 10 [...] Mental status Awake, oriented to person, place ([facility]), time (09/2024), able to name days [...] Intact to touch, pin throughout Cerebellar Intact becnss-ahyo-amniwu testing with mild bilateral kinetic tremor Reflex [...] 4.5 4.6 CL 102 103 102 CO2 BUN 40* 46* 47* CREATININE 1.8* 2.0* 2.1* GLUCOSE 161* 189* 250* Lab Results Component Value Date CHOL 177 10/01/2024 HDL 49 10/01/2024 TRIG 213 (H) 10/01/2024 ALT 24 09/28/2024 AST 29 09/28/2024 TSH 1.19 10/03/2024 INR 1.1 10/04/2024 LABA1C 09/28/2024 Sent to reference laboratory. Separate report to follow. LABA1C >16.5 (H) 09/28/2024 [id number] 791 10/03/2024 MG 2.2 09/29/2024 PHOS 4.5 [...] showed no abnormalities. ADRIAN BRYANT MD Diplomate, [place] [employer] and Neurology Diplomate, [place] Board of Clinical Neurophysiology Diplomate, [place] Board of Epilepsy Results for orders placed [...] collection present. The proximal portions of the belkofski of [place] demonstrate normal flow voids. ORBITS: [...] to operate a motor vehicle in the [facility] until he has been seizure free for [...] epilepticus was discussed. Mary Lou Tom DO [facility] * Chung Noel MD - 10/06/2024 [...] Week and faxed to Dr. Sanchez at [phone] . Will need to follow up with [...] 4.5 4.6 CL 102 103 102 CO2 21 24 23 BUN 40* 46* 47* CREATININE 1.8* [...] Corey Echevarria MD Internal Medicine Resident, PGY-3 [facility]; [place], [place] 10/06/2024, 8:33 AM Attending Physician Statement I have discussed the care of Ortiz Gorman, including pertinent history and exam findings, with the Fellow/Residentt. I have reviewed the swartz elements of all parts of the encounter with the Fellow/ Resident. I agree with the assessment, plan and orders as documented by the resident. Chung Noel MD MD, MRCP (), FACP 10/06/2024 4:11 PM [facility] * Trudi Russell, PT - 10/05/2024 3:32 PM EST Physical Therapy Facility/Department: [address] [facility] Physical Therapy Initial Evaluation [...] He was taken to the ED at [facility].Found to have significant elevation in his [...] He was transferred to medical ICU at [facility]. 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 I called Laura at [phone]. We discussed monitoring blood sugar and taking [...] STRAUSS RN * Kevin Sifuentes APRN - EXCELLENCE SPECIALIST - 10/05/2024 11:29 AM EST Neurology Nurse [...] was admitted as a transfer from [facility] on 09/28/2024 for management of hypertensive encephalopathy and DKA. As per medical records daughter found the patient confused on the bathroom floor covered in urine and feces. Last known well was the night of 09/27/2024; unsure about exact time. Family reported similar prior episodes in the setting of medication noncompliance. EMS were called who transferred the patient to [facility] on the morning of 09/28/2024. Upon [...] agitation while intubated. Patient was transferred to [facility] for ICU admis [facility] on 09/28/2024. Neurology was consulted for altered [...] patient had a similar admission in09/2023 at [facility] with hypertensive crisis, acute respiratory failure requiring [...] fluro performed by Vincent Kuhn DO at [facility] OR PHYSICAL EXAM: Blood pressure (!) [...] 10/05/2024 TSH 1.19 10/03/2024 INR 1.1 10/04/2024 [id number] 791 10/03/2024 FOLATE 11.5 10/03/2024 LABA1C 09/28/2024 [...] to ensure the accuracy of this automated drop hammer pile driver operator, some errors in drop hammer pile driver operator may have occurred. Associated attestation - [...] from the original note were not included. [facility] Office: [phone] Andrew Hernandez DO, Ernie Escalante DO, Hal [...] Sarita Mcmullen CNP, Linda Lynch CNP, Ludmila Aguilera, PARKER, Lina Morgan DNP, Nini Raya, PARKER, Giuliana Mae CNP, Myra Almodovar CNP, Suzy Dooley CNP, Gaviota Rich, BUSTER, Carley So, BUSTER, Shelly Rainey,PARKER, Manny Laura, PARKER, Yenny Motta CNP, Claudine Parrish CNP, Maame Carter, PARKER, Edilma Garza, PARKER [facility] IN-PATIENT SERVICE [facility] Progress Note 10/05/2024 10:48 AM Name: Ortiz Gorman Acct: [id number] Room: [id number] Day: 7 Admit Date: 09/28/2024 2:35 PM PCP: Vincent Winters MD Code Status: Full Code Subjective: C/C: SOB Interval History Status: improved. Patient seen and examined at bedside, no acute events overnight. He just came back from cardiac [facility] where he had loop recorder placed, tolerated [...] C) Recent Labs 10/04/24 1217 10/04/24 1626 10/04/24211610/05/24 0636 POCGLU 161* 197* 199* 177* I/O [...] 2019 10/04/24 0759 10/04/24 1217 10/04/24 1626 10/04/24211610/05/24 0636 TSH 1.19 -- -- -- -- -- -- -- POCGLU -- < > 190* 148* 161* 197* 199* 177* < > = values in this interval not displayed. ABG: Lab Results Component Value Date/Time POCPH 7.480 10/01/2024 04:26 AM PHART 7.385 09/28/2024 09:42 AM POCPCO2 33.7 10/01/2024 04:26 AM FCN5YLM 35.2 09/28/2024 09:42 AM POCPO2 143.0 10/01/2024 04:26 AM PO2ART 72.2 09/28/2024 09:42 AM POCHCO3 25.1 10/01/2024 04:26 AM DKL3HRH 20.6 09/28/2024 09:42 AM NBEA 3.7 09/28/2024 09:42 AM PBEA 1.5 10/01/2024 04:26 AM BYGJ3CRG 99.4 10/01/2024 04:26 AM P4JRAHNN 94.5 09/28/2024 09:42 AM FIO2 30.0 10/01/2024 [...] (Principal) DKA, type 2, not at goal ([facility]) 09/28/2024 Yes NSTEMI (non-ST elevated myocardial infarction) ([facility]) 09/29/2024 Yes Acute metabolic encephalopathy 09/30/2024 Yes Acute hypoxemic respiratory failure 09/28/2024 Yes Abnormal finding on MRI of brain 10/01/2024 Yes Abnormal electrocardiography 10/03/2024 Yes ABHIJIT (acute kidney injury) (HCC) 10/04/2024 Yes Stage 3 chronic kidney disease (HCC) 10/04/2024 Yes Hypertension 10/04/2024 Yes Seizures (HCC) 10/04/2024 Yes Plan: DKA NSTEMI Hypertensive Emergency [...] home and giving insulin, patient verbalized understanding. Television Technician reached out to diabetes education for physical copies of information and patient daughter Shania was requesting information and education. Diabetes education dropped off information for Shania and also educated over the phone. 1700: Patient, daughter Shania, and patient girlfriend in room for education regarding medication compliance and what should be expected at home. Patient and visitors verbalized understanding. Television Technician and visitors made a plan for discharge for patient daughter to be present in the discharge informationeducation since he will be living with her. Patient agreeable at this time. * Giancarlo Wagonergarett Valentin, DIRECTOR OF COUNSELING - CLERK CHECKER - 10/04/2024 2:59 PM EST Images from the original note were not included. [facility] Progress Note Date: 10/04/2024 Patient name: Ortiz [...] 10/01/2024 CHOLHDLRATIO 3.6 10/01/2024 INR: Recent Labs 10/04/24 0525 INR 1.1 Objective: Vitals: BP 120/80 Pulse [...] ms QTc Calculation (Bazett) 456 ms P [place] 79 degrees R [place] 68 degrees T [place] 68 degrees Narrative Sinus tachycardia Possible Left atrial enlargement Nonspecific ST abnormality Abnormal ECG No previous ECGs available Echo: Results for orders placed or performed during the hospital encounter of 10/27/21 Echocardiogram complete 2D with doppler with color Result Value Ref Range Left Ventricular Ejection Fraction 60 LVEF MODALITY ECHO Narrative [facility] Transthoracic Echocardiography Report (TTE) Patient Name SHERIF Date of Study 10/30/2021 ORTIZ Quezada Date of 1975 Gender Male Age 45 year(s) Race Room Number I307 Height: 71 inch, 180.34 cm Corporate ID [id number] Weight: 174 pounds, 78.9 kg # Patient Acct [id number] BSA: 1.99 m^2 BMI: 24.27 # kg/m^2 MR # [id number] [employer] Work,Raysa Interpreting Physician Sammie Sher Fellow Referring Nurse Sarita Arzola CNP Practitioner Interpreting Referring Physician Fellow Type of Study TTE procedure:2D Echocardiogram, M-Mode, Doppler, Color Doppler. Procedure Date Date: 10/30/2021 Start: 02:34 PM Study Location: [facility] Indications:Tachycardia. History / Tech. Comments: Dx: [...] (Principal) DKA, type 2, not at goal ([facility]) 09/28/2024 Yes NSTEMI (non-ST elevated myocardial infarction) ([facility]) 09/29/2024 Yes Acute metabolic encephalopathy 09/30/2024 Yes Acute hypoxemic respiratory failure 09/28/2024 Yes Abnormal finding on MRI of brain 10/01/2024 Yes Abnormal electrocardiography 10/03/2024 Yes ABHIJIT (acute kidney injury) ([facility]) 10/04/2024 Yes Stage 3 chronic kidney disease ([facility]) 10/04/2024 Yes Hypertension 10/04/2024 Yes Seizures ([facility]) 10/04/2024 Yes Assessment: Elevated Troponins- likely type II NH HTN emergency- off cardene drip AMS-extubated on [...] , please keep patient NPO after midnight [place] [employer] [phone] * Joseline Teague RN - 10/04/2024 1:31 [...] she may because she works in a skilled nursing. Ortiz states that prior to admission, he typically gave insulin to himself. It may be best for the patient to have support upon returning home to ensure consistency with his diabetes care. Educational materials previously given remain at bedside. Will sign off. Please refer again if needed or call [phone] if family requests diabetes education. Thank you for the referral. JOSELINE TEAGUE RN * Sherrie Han RN - 10/04/2024 [...] from the original note were not included. [facility] Office: [phone] Andrew Hernandez DO, Ernie Escalante, DO, Hal Atwood, DO, Carlos Trejo, DO, Ora Sharp MD, Dawna Chaney MD, Bassam Sher MD, Rhoda Luna MD, Lc Ibarra MD, Elyssa Yee MD, Jeimy Mireles MD, Franck Solis, DO, Jelena Damon MD, Rashid Mathew MD, Felix Hernandez, DO, Suzan Abbasi MD, Kulwinder Polk DO, Adriana Abdalla MD, Trino Gilliland MD, Peggy Cook MD, Clovis Mares MD, Db Lindquist MD, Judy Alvarez MD, Anne Quan MD, Roseline Forrest MD, Denilson Oliveira MD, Vilma Steel MD, Ludmila Best, DO, Bradly Nassar MD, Sarita Mcmullen,EXCELLENCE SPECIALIST, Linda Lynch EXCELLENCE SPECIALIST, Ludmila Aguilera, EXCELLENCE SPECIALIST, Lina Morgan, JENNA, Nini Raya, EXCELLENCE SPECIALIST, Giuliana Mae, EXCELLENCE SPECIALIST, Myra Almodovar, EXCELLENCE SPECIALIST, Suzy Dooley, EXCELLENCE SPECIALIST, Gaviota Rich PASulaimanC, GLADIS FosterC, Shelly Rainey,EXCELLENCE SPECIALIST, Manny Laura, EXCELLENCE SPECIALIST, Yenny Motta, EXCELLENCE SPECIALIST, Claudine Parrish, EXCELLENCE SPECIALIST, Maame Carter, EXCELLENCE SPECIALIST, Edilma Garza, EXCELLENCE SPECIALIST [facility] IN-PATIENT SERVICE [facility] Progress Note 10/04/2024 10:02 AM Name: Ortiz Gorman Acct: [id number] Room: [facility] Day: 6 Admit Date: 09/28/2024 2:35 PM [...] C) Recent Labs 10/03/24 1221 10/03/24 1743 10/03/24 2019 10/04/24 0759 POCGLU 88 163* 190* 148* I/O [...] 09:42 AM POCPCO2 33.7 10/01/2024 04:26 AM XYB2YSJ 35.2 09/28/2024 09:42 AM POCPO2 143.0 10/01/2024 04:26 AM PO2ART 72.2 09/28/2024 09:42 AM POCHCO3 25.1 10/01/2024 04:26 AM YTC0OIB 20.6 09/28/2024 09:42 AM NBEA 3.7 09/28/2024 09:42 AM PBEA 1.5 10/01/2024 04:26 AM DZLB2FLP 99.4 10/01/2024 04:26 AM I8NNUTJD 94.5 09/28/2024 09:42 AM FIO2 30.0 10/01/2024 [...] (Principal) DKA, type 2, not at goal ([facility]) 09/28/2024 Yes NSTEMI (non-ST elevated myocardial infarction) ([facility]) 09/29/2024 Yes Acute metabolic encephalopathy [...] Corey Echevarria MD Internal Medicine Resident, PGY-3 [facility]; [place], [place] 10/04/2024, 9:11 AM Attending Physician Statement [...] practitioner. Carmencita Mata MD * Mary Lou Tom, DO - 10/04/2024 8:45 AM [facility] IN-PATIENT SERVICE NEUROLOGY PROGRESS NOTE [...] night. He was taken tot ED at [facility]. Found to have significant elevation in [...] He was transferred to medical ICU at [facility]. Currently he is seen here at [place] [facility]. Propofol drip is currently running. He [...] fluro performed by Vincent Kuhn DO at [facility] Medications during admission: levoFLOXacin 250 [...] Mental status Awake, oriented to person, place ([facility]), time (09/2024), following all commands; speech [...] Intact to touch, pin throughout Cerebellar Intact yokohp-ufss-lfcdvs testing with mild bilateral kinetic tremor Reflex [...] report to follow. LABA1C >16.5 (H) 09/28/2024 [id number] 791 10/03/2024 MG 2.2 09/29/2024 PHOS 4.5 [...] showed no abnormalities. ADRIAN BRYANT MD Diplomate, [place] [employer] Psychiatry and Neurology Diplomate, [place] Board of Clinical Neurophysiology Diplomate, [place] Board of Epilepsy Please note this is [...] collection present. The proximal portions of the belkofski of [place] demonstrate normal flow voids. ORBITS: [...] attending, Dr. Luna. Mary Lou Tom DO [facility] Neurology * Delmy Anderson RN - 10/04/2024 3:35 AM EST 0245 - RN to bedside to find pt attempting to exit the bed and disconnected from LTME. Neuro resident aware. 0255 - call center operator echocardiograph tech called to replace LTME monitoring. 0257 - call center operator echocardiograph tech stated they would come replace LTME monitoring. 0444 - RN messaged echocardiograph tech asking for an updated eta to replace monitoring. 0445 - call center operator tech stated they will be here in [...] from the original note were not included. [facility] Occupational Therapy Not Seen Note DATE: [...] 1400 pt stated he knows he's at [facility] in [place] and that today September 2024. Pt is calm and pleasant but convinced that he was in a football field and got spray painted with red paint. Pt continues to ask for his cellphone and hat, neither of which are here. * Aleja Wagoner APRN - CLERK CHECKER - 10/03/2024 12:00 PM EST Images from the original note were not included. [place] Supervisor Heading Progress Note Date: 10/03/2024 Patient name: Ortiz [...] ms QTc Calculation (Bazett) 456 ms P [place] 79 degrees R [place] 68 degrees T [place] 68 degrees Narrative Sinus tachycardia Possible Left atrial enlargement Nonspecific ST abnormality Abnormal ECG No previous ECGs available Echo: Results for orders placed or performed during the hospital encounter of 10/27/21 Echocardiogram complete 2D with doppler with color Result Value Ref Range Left Ventricular Ejection Fraction 60 LVEF MODALITY ECHO Narrative [facility] Transthoracic Echocardiography Report (TTE) Patient Name SHERIF Date of Study 10/30/2021 ORTIZ Quezada Date of 1975 Gender Male Age 45 year(s) Race Room Number I307 Height: 71 inch, 180.34 cm Corporate ID [id number] Weight: 174 pounds, 78.9 kg # Patient Acct [id number] BSA: 1.99 m^2 BMI: 24.27 # kg/m^2 MR # [id number] [employer] Raysa De La Torre Interpreting Physician Sammie Sher Fellow Referring Nurse Sarita Arzola CNP Practitioner Interpreting Referring Physician Fellow Type of Study TTE procedure:2D Echocardiogram, M-Mode, Doppler, Color Doppler. Procedure Date Date: 10/30/2021 Start: 02:34 PM Study Location: [facility] Indications:Tachycardia. History / Tech. Comments: Dx: [...] (Principal) DKA, type 2, not at goal ([facility]) 09/28/2024 Yes NSTEMI (non-ST elevated myocardial infarction) ([facility]) 09/29/2024 Yes Acute metabolic encephalopathy 09/30/2024 Yes Acute hypoxemic respiratory failure 09/28/2024 Yes Abnormal finding on MRI of brain 10/01/2024 Yes Assessment: Elevated Troponins- likely type II NH HTN emergency- off cardene drip AMS-extubated on 10/01 ABHIJIT Sepsis 2/2 pneumonia DKA Normal TTE 01/2024 Plan: Hemodynamically stable - continue asa , statin Norvasc and coreg ECHO as above Volume management per nephrology Awaiting stress test if low risk then can be discharged from cardiac standpoint [place] Supervisor Heading [phone] * Jerod De La Cruz RPH - 10/03/2024 10:18 AM EST Pharmacy Note [...] other day --> Levofloxacin 250 mg daily Corwin FofanaD, BCCCP 10/03/2024 10:18 AM * Sunshine Carmona RD [...] mg/dL. Estimated Daily Nutrient Needs: Energy (kcal): 3779-5500 kcal/d Weight Used for Energy Requirements: Current [...] No discharge needs at this time Sunshine Carmona MS, RDN, LDN Contact: [phone] * Joseline Teague RN - 10/03/2024 8:26 AM EST Inpatient Diabetes Education Ortiz Damien Gorman was seen for follow up. Please [...] She took my number (Diabetes Education Ph. [phone]) and the plan is that she will [...] per DKA orderset. Pt life flighted from [facility] to [facility] ER admitted to 3002: Diabetic ketoacidosis with [...] education at a more appropriate time. * Rhoda Luna MD - 10/03/2024 8:10 AM EST Images from the original note were not included. [facility] Office: [phone] Andrew Hernandez DO, Ernie Escalante DO, Hal [...] Ludmila Best DO, Bradly Nassar MD, Sarita Mcmullen,EXCELLENCE SPECIALIST, Linda Lynch, EXCELLENCE SPECIALIST, Ludmila Aguilera, EXCELLENCE SPECIALIST, Lina Morgan DNP, Nini Raya, EXCELLENCE SPECIALIST, Giuliana Mae, EXCELLENCE SPECIALIST, Myra Almodovar CNP, Suzy Dooley EXCELLENCE SPECIALIST, GLADIS RankinC, Carley So, PASulaimanC, Shelly Rainey,PARKER, Manny Laura, PARKER, Yenny Motta, PARKER, Claudine Parrish, EXCELLENCE SPECIALIST, Maame Carter CNP, Edilma Garza, PARKER [facility] IN-PATIENT SERVICE [facility] Progress Note 10/03/2024 8:10 AM Name: Ortiz Gorman Acct: [id number] Room: [facility] Day: 5 Admit Date: 09/28/2024 2:35 PM [...] -- Recent Labs 10/01/24 0541 10/01/24 0729 10/01/24200610/02/24 0619 10/02/24 1100 10/02/24 1309 10/02/24 1701 10/02/242044 CHOL 177 -- -- -- -- -- [...] 09:42 AM POCPCO2 33.7 10/01/2024 04:26 AM WFD7SNX 35.2 09/28/2024 09:42 AM POCPO2 143.0 10/01/2024 04:26 AM PO2ART 72.2 09/28/2024 09:42 AM POCHCO3 25.1 10/01/2024 04:26 AM EQD2IPU 20.6 09/28/2024 09:42 AM NBEA 3.7 09/28/2024 09:42 AM PBEA 1.5 10/01/2024 04:26 AM AOVK7DXZ 99.4 10/01/2024 04:26 AM Y5TKNRUW 94.5 09/28/2024 09:42 AM FIO2 30.0 10/01/2024 [...] (Principal) DKA, type 2, not at goal ([facility]) 09/28/2024 Yes NSTEMI (non-ST elevated myocardial infarction) ([facility]) 09/29/2024 Yes Acute metabolic encephalopathy [...] Luna MD 10/03/2024 8:10 AM * Marce Restrepo APRN - EXCELLENCE SPECIALIST - 10/03/2024 7:47 AM EST NEUROLOGY INPATIENT [...] slurring his words. He was taken to [facility] where he was found to have significantly elevated SBP greater than 250s, glucose was 820. He was also found to have ABHIJIT, elevated troponins, lactic acidosis, and ABG consistent with hypoxemia. Danielleoes have a history of medication noncompliance. He was intubated for airway protection, sedated, and transferred to [facility] to the ICU. MRI brain was done [...] fluro performed by Vincent Kuhn DO at [facility] Social History: Ortiz Gorman reports [...] to ensure the accuracy of this automated drop hammer pile driver operator, some errors in drop hammer pile driver operator may have occurred. Associated attestation - [...] We will continue to follow. Mary Lou Tom DO 10/03/2024 1:05 PM * Humberto Thakkar RN - 10/02/2024 8:05 PM EST 1910 pt bed alarm went off. RN x2 went to pt room. Pt laying in bed but at the edge. Pt stating that he needs help getting up and getting home. RN's asked pt where he was and pt stated he was at the [facility] [place] [employer] [address] [place]. RN attempted to reorient the pt and pt continued to reiterate that he was at [facility] [place] [employer] [address] [place]. RN's repositioned pt in bed and [...] DKA orderset. Pt life flighted from [facility] to [facility] ER admitted to 3002: Diabetic ketoacidosis with [...] a more appropriate time. * Aleja Wagoner, DIRECTOR OF COUNSELING - CLERK CHECKER - 10/02/2024 3:02 PM EST Images from the original note were not included. [place] Supervisor Heading Progress Note Date: 10/02/2024 Patient name: Ortiz [...] ms QTc Calculation (Bazett) 456 ms P [place] 79 degrees R [place] 68 degrees T [place] 68 degrees Narrative Sinus tachycardia Possible Left atrial enlargement Nonspecific ST abnormality Abnormal ECG No previous ECGs available Echo: Results for orders placed or performed during the hospital encounter of 10/27/21 Echocardiogram complete 2D with doppler with color Result Value Ref Range Left Ventricular Ejection Fraction 60 LVEF MODALITY ECHO Narrative [facility] Transthoracic Echocardiography Report (TTE) Patient Name SHERIF Date of Study 10/30/2021 ORTIZ Quezada Date of 1975 Gender Male Age 45 year(s) Race Room Number I307 Height: 71 inch, 180.34 cm Corporate ID [id number] Weight: 174 pounds, 78.9 kg # Patient Acct [id number] BSA: 1.99 m^2 BMI: 24.27 # kg/m^2 MR # [id number] [employer] BrittRaysa Interpreting Physician Sammie Sher Fellow Referring Nurse Sarita Arzola CNP Practitioner Interpreting Referring Physician Fellow Type of Study TTE procedure:2D Echocardiogram, M-Mode, Doppler, Color Doppler. Procedure Date Date: 10/30/2021 Start: 02:34 PM Study Location: [facility] Indications:Tachycardia. History / Tech. Comments: Dx: [...] (Principal) DKA, type 2, not at goal ([facility]) 09/28/2024 Yes NSTEMI (non-ST elevated myocardial infarction) ([facility]) 09/29/2024 Yes Acute metabolic encephalopathy 09/30/2024 Yes Acute hypoxemic respiratory failure 09/28/2024 Yes Abnormal finding on MRI of brain 10/01/2024 Yes Assessment: Elevated Troponins- likely type II NH HTN emergency- off cardene drip AMS-extubated on 10/01 ABHIJIT Sepsis 2/2 pneumonia DKA Normal TTE 01/2024 Plan: Hemodynamically stable - continue asa , statin Norvasc and coreg ECHO as above Volume management per nephrology Will plan for stress test in am if low risk then can be discharged from cardiac standpoint [place] Supervisor Heading [phone] * Felix Hernandez DO - 10/02/2024 1:04 PM EST Images from the original note were not included. [facility] Office: [phone] Andrew Hernandez DO, Ernie Escalante DO, Hal [...] Ludmila Best DO, Bradly Nassar MD, Sarita Mcmullen,EXCELLENCE SPECIALIST, Linda Lynch, EXCELLENCE SPECIALIST, Ludmila Aguilera, EXCELLENCE SPECIALIST, Lina Morgan, JENNA, Nini Raya, EXCELLENCE SPECIALIST, Giuliana Mae, EXCELLENCE SPECIALIST, Myra Almodovar, EXCELLENCE SPECIALIST, Suzy Dooley, EXCELLENCE SPECIALIST, Gaviota Rich PA-C, Carley So PA-C, Shelly Rainey,EXCELLENCE SPECIALIST, Manny Laura, EXCELLENCE SPECIALIST, Yenny Motta, EXCELLENCE SPECIALIST, Claudine Parrish, EXCELLENCE SPECIALIST, Maame Carter, EXCELLENCE SPECIALIST, Edilma Garza, EXCELLENCE SPECIALIST [facility] IN-PATIENT SERVICE [facility] Progress Note 10/02/2024 1:05 PM Name: Ortiz Gorman Acct: [id number] Room: 0165/0165-01 Day: 4 Admit Date: 09/28/2024 [...] Max:98.6 F (37 C) Recent Labs 10/01/24 19310/01/24200610/02/2461810/02/24 1100 POCGLU 129* 126* 81 175* I/O [...] 0541 10/01/24 0729 10/01/24 1101 10/01/24 1710 10/01/24193710/01/24200610/02/2461810/02/24 1100 CHOL 177 -- -- -- -- [...] 09:42 AM POCPCO2 33.7 10/01/2024 04:26 AM GGZ3OET 35.2 09/28/2024 09:42 AM POCPO2 143.0 10/01/2024 04:26 AM PO2ART 72.2 09/28/2024 09:42 AM POCHCO3 25.1 10/01/2024 04:26 AM DSM1WLL 20.6 09/28/2024 09:42 AM NBEA 3.7 09/28/2024 09:42 AM PBEA 1.5 10/01/2024 04:26 AM WOCP9JLL 99.4 10/01/2024 04:26 AM I3AYTXQX 94.5 09/28/2024 09:42 AM FIO2 30.0 10/01/2024 [...] (Principal) DKA, type 2, not at goal ([facility]) 09/28/2024 Yes NSTEMI (non-ST elevated myocardial infarction) ([facility]) 09/29/2024 Yes Acute metabolic encephalopathy 09/30/2024 Yes Acute hypoxemic respiratory failure 09/28/2024 Yes Abnormal finding on MRI of brain 10/01/2024 Yes Plan: Diabetic ketoacidosis/diabetes mellitus DKA resolved Continue Lantus and sliding scale Outpatient follow-up with perinatal educator Essential hypertension Medications adjusted Monitor and titrate accordingly Demand ischemia/elevated enzymes Stress testing at the discretion of cardiology No objection to outpatient stress testing if recommended per cardiology Pneumonia Transition to Levaquin for 3 more days DC Zosyn Acute on chronic kidney failure Avoid nephrotoxic agents Renally dose Levaquin Improving Weakness/debility PT/OT Medical Decision Making: Megan Hernandez DO 10/02/2024 1:05 PM * AtiyaLudmila MD - 10/02/2024 10:31 AM EST Critical care team - Resident sign-out to medicine service Date and time: 10/02/2024 10:32 AM Patient's name: Ortiz Gorman Patient's account/billing number: [id number] Patient's Date of : 1975 Age: 48 [...] Date Noted NSTEMI (non-ST elevated myocardial infarction) ([facility]) 09/29/2024 Abnormal finding on MRI of brain 10/01/2024 DKA, type 2, not at goal ([facility]) 09/28/2024 Acute hypoxemic respiratory failure 09/28/2024 Central apnea 01/22/2024 Acute metabolic encephalopathy 01/19/2024 Hypertensive emergency 01/19/2024 Fever 01/19/2024 Altered mental status 01/19/2024 Encephalopathy acute 01/19/2024 Hypertensive urgency 01/19/2024 Lactic acidosis 01/19/2024 Bacteremia due to Staphylococcus aureus Sinus tachycardia Mild malnutrition ([facility]) 10/28/2021 Diabetic acidosis without coma ([facility]) 10/27/2021 Additional assessment: Neuro: cont asa, lipitor CV: Amlodipine 5mg daily, Coreg 25mg daily, Losartan 25mg daily GI: DM diet ID: Zosyn for pneumonia Endo: Lantus 25u AM, MDSSI DVT ppx: Hep 5k TID Recommended Follow-up: Cardiology for stress test Nephrology for ABHIJIT, though resolving Neuro: consider 30d sheriff officer at [facility] 4wks Above mentioned assessment and plan was discussed by me with the admitting medicine resident. The medicine team assigned to the patient by medicine admitting resident will be following up the patientfrom now onwards on the floor. Ludmila Rajupt MD, M.D. Critical care resident Department of Internal Medicine/ Critical care [facility]) 10/02/2024, 10:32 AM * Chung Noel MD [...] 172/89 Pulse: 69 72 70 74 Resp: Temp: TempSrc: SpO2: 98% 100% 100% Weight: [...] FACP 10/02/2024 9:04 AM [facility] * Marce Restrepo, DIRECTOR OF COUNSELING - EXCELLENCE SPECIALIST - 10/02/2024 9:00 AM EST NEUROLOGY INPATIENT PROGRESS NOTE 10/02/2024 Current Exam: Chart reviewed. Discussed with RN. Patient was extubated yesterday. He is oriented but gives off topic responses at times to questions. He denies any headache or focal weakness. No seizure activity. He admits to medication non compliance PUBLIC HEALTH SPECIALIST. Brief History: Ortiz Gorman is a 48 y.o. male with H/O DM, who was admitted on 09/28/2024 after being found downat home, reportedly covered in feces, confused, and slurring his words. He was taken to [facility] where he was found to have significantly elevated SBP greater than 250s, glucose was 820. He was also found to have ABHIJIT, elevated troponins, lactic acidosis, and ABG consistent with hypoxemia. Hedoes have a history of medication noncompliance. He was intubated for airway protection, sedated, and transferred to [facility] to the ICU. MRI brain was done [...] fluro performed by Vincent Kuhn DO at [facility] [place] Social History: Ortiz Gorman reports [...] CBC: Recent Labs 09/30/24 0404 10/01/24 0541 10/02/24407 WBC 12.6* 7.3 8.0 HGB 8.4* 8.3* 8.4* PLT 186 180 180 BMP: Recent Labs 09/30/24 0404 10/01/24 0541 10/02/24407 NA 132* 139 141 K 4.3 4.0 [...] to ensure the accuracy of this automated drop hammer pile driver operator, some errors in drop hammer pile driver operator may have occurred. Associated attestation - [...] Continue asa and statin. Recommend 30 day sheriff officer at or. Can consider LOOP recorder as outpatient if no afib captured. Will also repeat MRI brain w/wo in 4 weeks. Needs close neuro follow up outpatient. Given ongoing neurological improvement, will defer further workup at this time. Will sign off for now. Please call if any further questions Mary Lou Tom, DO 10/02/2024 5:16 PM * Ludmila Rajput [...] hypertension who presents as a transfer from [facility]. He was brought to the ED [...] to the ICU but ended leaving AMA. 12/16: extubated OVERNIGHT EVENTS: NAEON TODAY: Patient seen today, sitting up in bed, speaking full sentences, asking why this keeps happening to him. Denies any concerning symptoms. BG normal and well controlled overnight. Zosyn to end 10/04. Neuro following for stroke concern,OP recs. Nephro on for ABHIJIT. Voiding spontaneously. Plan to transferto PA today OBJECTIVE: VITAL SIGNS: BP (!) 140/75 [...] Date 10/02/24 0000 - 10/02/24 2359 Shift 9549-0293 2843-8830 3821-0179 24 Hour Total INTAKE P.O.(mL/kg/hr) 500 500 [...] Value Date/Time PHART 7.385 09/28/2024 09:42 AM MFK7UPR 35.2 09/28/2024 09:42 AM PO2ART 72.2 09/28/2024 09:42 AM SPF2EJA 20.6 09/28/2024 09:42 AM S3UQKDBH 94.5 09/28/2024 09:42 AM FIO2 30.0 10/01/2024 [...] Procedure Component Value Units Date/Time Culture, Respiratory [[id number]] (Abnormal) Collected: 09/28/242053 Order Status: Completed Specimen: Respiratory specimen from Tracheal Aspirate Updated: 09/30/24 0903 Specimen Description .TRACHEAL ASPIRATE Special Requests Site: Respiratory specimen Direct Exam < 10 EPITHELIAL CELLS/LPF >10, <25 NEUTROPHILS/LPF FEW GRAM POSITIVE COCCI IN PAIRS Culture NORMAL RESPIRATORY AYDEN LIGHT GROWTH MRSA DNA Probe, Nasal [[id number]] Collected: 09/28/241637 Order Status: Completed Specimen: Nares [...] treatment for MRSA infections. LEGIONELLA ANTIGEN, URINE [[id number]] Collected: 09/28/241624 Order Status: Completed Specimen: Urine Updated: 09/28/241756 Legionella Pneumophilia Ag, Urine NEGATIVE Comment: L. pneumophila serogroup 1 antigen not detected. A negative result does not exclude infection with Leginella pnemophila serogroup 1 nor does it rule out other microbial-caused respiratory infections of disease caused by other serogroups of Legionella pneumophila. Strep Pneumoniae Antigen [[id number]] Collected: 09/28/241623 Order Status: Completed Specimen: Urine, clean catch Updated: 09/28/24 175 Source .URINE Strep pneumo Ag NEGATIVE Comment: Strep pneumoniae antigen not detected Respiratory Panel, Molecular, with COVID-19 (Restricted: peds pts or suitable admitted adults) [[id number]] Collected: 09/28/24 162 Order Status: Completed Specimen: [...] multiplexed nucleic acid assay. Culture, Blood 1 [[id number]] (Abnormal) (Susceptibility) Collected: 09/28/24838 Order Status: Completed Specimen: Blood Updated: 10/01/24824 [...] to and read back by:YECENIA JOHNSON RN, [facility], 09/29/24 0745, RB DJR Susceptibility Enterococcus avium BACTERIAL SUSCEPTIBILITY PANEL MARINE ampicillin <=2 Sensitive Gentamicin, High Level Sensitive Streptomycin, Hi Level Sensitive vancomycin <=0.5 Sensitive Culture, Blood 2 [[id number]] Collected: 09/28/24833 Order Status: Completed Specimen: Blood Updated: 10/02/24649 [...] Date Noted NSTEMI (non-ST elevated myocardial infarction) ([facility]) 09/29/2024 Abnormal finding on MRI of brain 10/01/2024 DKA, type 2, not at goal ([facility]) 09/28/2024 Acute hypoxemic respiratory failure 09/28/2024 Central apnea 01/22/2024 Acute metabolic encephalopathy 01/19/2024 Hypertensive emergency 01/19/2024 Fever 01/19/2024 Altered mental status 01/19/2024 Encephalopathy acute 01/19/2024 Hypertensive urgency 01/19/2024 Lactic acidosis 01/19/2024 Bacteremia due to Staphylococcus aureus Sinus tachycardia Mild malnutrition ([facility]) 10/28/2021 Diabetic acidosis without coma ([facility]) 10/27/2021 PLAN: WEAN PER PROTOCOL: [] No [] Yes [x] N/A ICU PROPHYLAXIS: Stress ulcer: [x] PPI Agent [] C8Asptu [] Sucralfate [] Other: VTE: [] Enoxaparin [...] Mycoplasma, Legionella. MRSA negative CV: BP at [place] was 225/110 and started on cardene drip [...] 5000 TID GI: None [facility]: [facility] Ludmila Rajput MD Emergency Medicine Resident, PGY 3 Critical Care Service 10/02/2024 6:52 AM Associated attestation - Rip Mcmullen MD - 10/02/2024 7:25 PM EST Attending Physician Statement I have discussed the case of Ortiz Gorman, including pertinent history and exam findings with theresident/fellow/medical student/CLERK CHECKER/PA. I have seen and examined the patient and the swartz elements ofthe encounter have been performed by me. I agree with the assessment, plan and orders as documentedby the resident/fellow/medical student/CLERK CHECKER/PA With changes made to the note as [...] pump inhibitor Patient can be transferred to [facility] bed We will sign off when the [...] propofol Stopped (10/01/24 1000) sodium chloride Stopped (09/28/244) dextrose 5 % [...] Chung Noel MD MD, MRCP (), FACP 10/01/2024 10:15 AM [facility] * Marce Restrepo, DIRECTOR OF COUNSELING - EXCELLENCE SPECIALIST - 10/01/2024 9:41 AM EST NEUROLOGY INPATIENT [...] slurring his words. He was taken to [facility] where he was found to have significantly elevated SBP greater than 250s, glucose was 820. He was also found to have ABHIJIT, elevated troponins, lactic acidosis, and ABG consistent with hypoxemia. Hedoes have a history of medication noncompliance. He was intubated for airway protection, sedated, and transferred to [facility] to the ICU. MRI brain was done [...] fluro performed by Vincent Kuhn DO at [facility] [place] Social History: Ortiz Gorman reports [...] to ensure the accuracy of this automated drop hammer pile driver operator, some errors in drop hammer pile driver operator may have occurred. Associated attestation - Mary Lou Tom DO - 10/01/2024 9:55 PM EST Attending Physician Statement: I have discussed the care of Ortizveena Gorman, including pertinent history and exam findings [...] with no acute findings. Consider 30 day sheriff officer at or. Will recommend repeat MRI brain in 4 [...] per DKA orderset. Pt life flighted from [facility] to [facility] ER admitted to 3002: Diabetic ketoacidosis with [...] Progress Note PATIENT: ORTIZ GORMAN CSN #: [id number] : 1975 ADMIT DATE: 09/28/2024 2:35 PM DISCH DATE: RESPONDING PROVIDER #: SUSSY MTZ QUERY TEXT: Pt admitted with DKA, possible pneumonia. Noted documentation of Sepsis 2/2 pneumonia on 09/29-09/30 by ordered business sales consultant. If possible, please document in progress [...] the original note were not included. [place] Supervisor Heading Progress Note Date: 10/01/2024 Patient name: Ortiz [...] 50 mcg/kg/min (10/01/24 0737) sodium chloride Stopped (09/28/242123) dextrose 5 % [...] ms QTc Calculation (Bazett) 456 ms P [place] 79 degrees R [place] 68 degrees T [place] 68 degrees Narrative Sinus tachycardia Possible Left atrial enlargement Nonspecific ST abnormality Abnormal ECG No previous ECGs available Echo: Results for orders placed or performed during the hospital encounter of 10/27/21 Echocardiogram complete 2D with doppler with color Result Value Ref Range Left Ventricular Ejection Fraction 60 LVEF MODALITY ECHO Narrative [facility] Transthoracic Echocardiography Report (TTE) Patient Name SHERIF Date of Study 10/30/2021 ORTIZ Quezada Date of 1975 Gender Male Age 45 year(s) Race Room Number I307 Height: 71 inch, 180.34 cm Corporate ID [id number] Weight: 174 pounds, 78.9 kg # Patient Acct [id number] BSA: 1.99 m^2 BMI: 24.27 # kg/m^2 MR # [id number] [employer] enEvolv,Raysa Interpreting Physician Sammie Sher Fellow Referring Nurse Sarita Arzola CNP Practitioner Interpreting Referring Physician Fellow Type of Study TTE procedure:2D Echocardiogram, M-Mode, Doppler, Color Doppler. Procedure Date Date: 10/30/2021 Start: 02:34 PM Study Location: [facility] Indications:Tachycardia. History / Tech. Comments: Dx: [...] (Principal) DKA, type 2, not at goal ([facility]) 09/28/2024 Yes NSTEMI (non-ST elevated myocardial infarction) ([facility]) 09/29/2024 Yes Acute metabolic encephalopathy 09/30/2024 Yes Acute hypoxemic respiratory failure 09/28/2024 Yes Assessment: Elevated Troponins- likely type II NH HTN emergency- off cardene drip AMS-extubated on [...] With changes made to the note. . [place] Supervisor Heading [phone] * Sirena Sanchez MD - 10/01/2024 7:16 [...] hypertension who presents as a transfer from [facility]. He was brought to the ED [...] Date 10/01/24 0000 - 10/01/24 2359 Shift 3760-7415 0292-8911 1426-1695 24 Hour Total INTAKE I.V.(mL/kg) 1283.3(15.5) 294(3.5) [...] Value Date/Time PHART 7.385 09/28/2024 09:42 AM HBV7OQY 35.2 09/28/2024 09:42 AM PO2ART 72.2 09/28/2024 09:42 AM CUW0BXP 20.6 09/28/2024 09:42 AM [id number] 94.5 09/28/2024 09:42 AM FIO2 30.0 10/01/2024 [...] Procedure Component Value Units Date/Time Culture, Respiratory [[id number]] (Abnormal) Collected: 09/28/242053 Order Status: Completed Specimen: Respiratory specimen from Tracheal Aspirate Updated: 09/30/24902 Specimen Description .TRACHEAL ASPIRATE Special Requests Site: Respiratory specimen Direct Exam < 10 EPITHELIAL CELLS/LPF >10, <25 NEUTROPHILS/LPF FEW GRAM POSITIVE COCCI IN PAIRS Culture NORMAL RESPIRATORY AYDEN LIGHT GROWTH MRSA DNA Probe, Nasal [[id number]] Collected: 09/28/24 1638 Order Status: Completed Specimen: [...] treatment for MRSA infections. LEGIONELLA ANTIGEN, URINE [[id number]] Collected: 09/28/24 162 Order Status: Completed Specimen: Urine Updated: 09/28/24 175 Legionella Pneumophilia Ag, Urine NEGATIVE Comment: L. pneumophila serogroup 1 antigen not detected. A negative result does not exclude infection with Leginella pnemophila serogroup 1 nor does it rule out other microbial-caused respiratory infections of disease caused by other serogroups of Legionella pneumophila. Strep Pneumoniae Antigen [[id number]] Collected: 09/28/24 162 Order Status: Completed Specimen: Urine, clean catch Updated: 09/28/24 175 Source .URINE Strep pneumo Ag NEGATIVE Comment: Strep pneumoniae antigen not detected Respiratory Panel, Molecular, with COVID-19 (Restricted: peds pts or suitable admitted adults) [[id number]] Collected: 09/28/24 1620 Order Status: Completed Specimen: [...] multiplexed nucleic acid assay. Culture, Blood 1 [[id number]] (Abnormal) (Susceptibility) Collected: 09/28/24838 Order Status: Completed Specimen: Blood Updated: 10/01/24824 [...] to and read back by:YECENIA JOHNSON RN, [facility], 09/29/24 0745, RB DJR Susceptibility Enterococcus avium BACTERIAL SUSCEPTIBILITY PANEL MARINE ampicillin <=2 Sensitive Gentamicin, High Level Sensitive Streptomycin, Hi Level Sensitive vancomycin <=0.5 Sensitive Culture, Blood 2 [[id number]] Collected: 09/28/24833 Order Status: Completed Specimen: Blood Updated: 10/01/24710 Specimen Description .BLOOD Special Requests 20ML RIGHT [...] Date Noted NSTEMI (non-ST elevated myocardial infarction) ([facility]) 09/29/2024 DKA, type 2, not at goal ([facility]) 09/28/2024 Acute hypoxemic respiratory failure 09/28/2024 Central apnea 01/22/2024 Acute metabolic encephalopathy 01/19/2024 Hypertensive emergency 01/19/2024 Fever 01/19/2024 Altered mental status 01/19/2024 Encephalopathy acute 01/19/2024 Hypertensive urgency 01/19/2024 Lactic acidosis 01/19/2024 Bacteremia due to Staphylococcus aureus Sinus tachycardia Mild malnutrition ([facility]) 10/28/2021 Diabetic acidosis without coma ([facility]) 10/27/2021 PLAN: WEAN PER PROTOCOL: [] No [x] Yes [] N/A ICU PROPHYLAXIS: Stress ulcer: [x] PPI Agent [] [id number] [] Sucralfate [] Other: VTE: [] Enoxaparin [...] Mycoplasma, Legionella. MRSA negative CV: BP at [place] was 225/110 and started on cardene drip [...] pertinent history and exam findings with theresident/fellow/medical student/CLERK CHECKER/PA. I have seen and examined the patient and the swartz elements ofthe encounter have been performed by me. I agree with the assessment, plan and orders as documentedby the resident/fellow/medical student/CLERK CHECKER/PA With changes made to the note as [...] Brown DO - 09/30/2024 1:13 PM EST [facility] IN-PATIENT SERVICE NEUROLOGY PROGRESS NOTE [...] night. He was taken tot ED at [facility]. Found to have significant elevation in [...] He was transferred to medical ICU at [facility]. Currently he is seen here at [place] ICU. Propofol drip is currently running. He [...] fluro performed by Vincent Kuhn DO at [facility] [place] Medications during admission: insulin glargine [...] collection present. The proximal portions of the belkofski of [place] demonstrate normal flow voids. ORBITS: [...] will continue to follow. Addy Brown DO [facility] * Sussy Mtz MD - 09/30/2024 [...] hypertension who presents as a transfer from [facility]. He was brought to the ED [...] Temp src Pulse Resp SpO2 Weight 09/30/24 0727 -- -- -- 80 18 100 % [...] Date 09/30/24 0000 - 09/30/24 2359 Shift 8733-3275 9767-8901 7446-3776 24 Hour Total INTAKE I.V.(mL/kg) 233.8(2.8) 233.8(2.8) [...] 30 mcg/kg/min (09/30/24 0710) sodium chloride Stopped (09/28/24 2124) dextrose 5 [...] Value Date/Time PHART 7.385 09/28/2024 09:42 AM ZTA2VHV 35.2 09/28/2024 09:42 AM PO2ART 72.2 09/28/2024 09:42 AM KRE6NHP 20.6 09/28/2024 09:42 AM Z1XQFKHF 94.5 09/28/2024 09:42 AM FIO2 30.0 09/30/2024 04:46 AM DATA: Complete Blood Count: Recent Labs 09/28/244 09/29/24 0305 09/30/24 0404 WBC 17.2* 17.6* [...] Procedure Component Value Units Date/Time Culture, Respiratory [[id number]] (Abnormal) Collected: 09/28/242053 Order Status: Completed Specimen: Respiratory specimen from Tracheal Aspirate Updated: 09/29/24 1211 Specimen Description .TRACHEAL ASPIRATE Special Requests Site: Respiratory specimen Direct Exam < 10 EPITHELIAL CELLS/LPF >10, <25 NEUTROPHILS/LPF FEW GRAM POSITIVE COCCI IN PAIRS Culture CULTURE IN PROGRESS MRSA DNA Probe, Nasal [[id number]] Collected: 09/28/24 1638 Order Status: Completed Specimen: [...] treatment for MRSA infections. LEGIONELLA ANTIGEN, URINE [[id number]] Collected: 09/28/241624 Order Status: Completed Specimen: Urine Updated: 09/28/24 175 Legionella Pneumophilia Ag, Urine NEGATIVE Comment: L. pneumophila serogroup 1 antigen not detected. A negative result does not exclude infection with Leginella pnemophila serogroup 1 nor does it rule out other microbial-caused respiratory infections of disease caused by other serogroups of Legionella pneumophila. Strep Pneumoniae Antigen [[id number]] Collected: 09/28/241623 Order Status: Completed Specimen: Urine, clean catch Updated: 09/28/24 175 Source .URINE Strep pneumo Ag NEGATIVE Comment: Strep pneumoniae antigen not detected Respiratory Panel, Molecular, with COVID-19 (Restricted: peds pts or suitable admitted adults) [[id number]] Collected: 09/28/241619 Order Status: Completed Specimen: Respiratory specimen from [...] multiplexed nucleic acid assay. Culture, Blood 1 [[id number]] (Abnormal) Collected: 09/28/24 0839 Order Status: Completed [...] to and read back by:YECENIA JOHNSON RN, [facility], 09/29/24 0745, RB DJR Culture, Blood 2 [[id number]] Collected: 09/28/24 0834 Order Status: Completed Specimen: Blood Updated: 09/30/24 07 Specimen Description .BLOOD Special Requests 20ML RIGHT [...] Date Noted NSTEMI (non-ST elevated myocardial infarction) ([facility]) 09/29/2024 DKA, type 2, not at goal ([facility]) 09/28/2024 Acute hypoxemic respiratory failure 09/28/2024 Central apnea 01/22/2024 Hypertensive encephalopathy 01/19/2024 Hypertensive emergency 01/19/2024 Fever 01/19/2024 Altered mental status 01/19/2024 Encephalopathy acute 01/19/2024 Hypertensive urgency 01/19/2024 Lactic acidosis 01/19/2024 Bacteremia due to Staphylococcus aureus Sinus tachycardia Mild malnutrition ([facility]) 10/28/2021 Diabetic acidosis without coma ([facility]) 10/27/2021 PLAN: WEAN PER PROTOCOL: [] No [x] Yes [] N/A ICU PROPHYLAXIS: Stress ulcer: [x] PPI Agent [] [id number] [] Sucralfate [] Other: VTE: [] Enoxaparin [...] i Vent Mode: AC/PRVC CV: BP at [place] was 225/110 and started on cardene drip [...] DVT: Heparin 5000 TID GI: Protonix Dispo: SHERITA Mtz MD Family Medicine PGY2 Critical Care [...] from the original note were not included. [place] Supervisor Heading Progress Note Date: 09/30/2024 Patient name: Ortiz [...] Continuous Infusions: dextrose sodium chloride Stopped (09/28/24 4494) propofol 30 mcg/kg/min (09/30/24 2083) sodium chloride Stopped (09/28/242123) dextrose 5 % and 0.45 % NaCl Stopped (12/14/24 1200) insulin Stopped (09/29/24 1124) CBC: Recent [...] ms QTc Calculation (Bazett) 456 ms P [place] 79 degrees R [place] 68 degrees T [place] 68 degrees Narrative Sinus tachycardia Possible Left atrial enlargement Nonspecific ST abnormality Abnormal ECG No previous ECGs available Echo: Results for orders placed or performed during the hospital encounter of 10/27/21 Echocardiogram complete 2D with doppler with color Result Value Ref Range Left Ventricular Ejection Fraction 60 LVEF MODALITY ECHO Narrative [facility] Transthoracic Echocardiography Report (TTE) Patient Name SHERIF Date of Study 10/30/2021 ORTIZ Quezada Date of 1975 Gender Male Age 45 year(s) Race Room Number I307 Height: 71 inch, 180.34 cm Corporate ID [id number] Weight: 174 pounds, 78.9 kg # Patient Acct [id number] BSA: 1.99 m^2 BMI: 24.27 # kg/m^2 MR # [id number] [employer] BrittRaysa Interpreting Physician Sammie Sher Fellow Referring Nurse Sarita Arzola, PARKER Practitioner Interpreting Referring Physician Fellow Type of Study TTE procedure:2D Echocardiogram, M-Mode, Doppler, Color Doppler. Procedure Date Date: 10/30/2021 Start: 02:34 PM Study Location: [facility] Indications:Tachycardia. History / Tech. Comments: Dx: [...] (Principal) DKA, type 2, not at goal ([facility]) 09/28/2024 Yes NSTEMI (non-ST elevated myocardial infarction) ([facility]) 09/29/2024 Yes Acute hypoxemic respiratory failure 09/28/2024 Yes Assessment: Elevated Troponins- likely type II NH HTN emergency- off cardene drip now AMS-intubated [...] With changes made to the note. . [place] Supervisor Heading [phone] * Addy Brown DO - 09/29/2024 2:08 PM EST [facility] IN-PATIENT SERVICE NEUROLOGY PROGRESS NOTE [...] night. He was taken tot ED at [facility]. Found to have significant elevation in [...] He was transferred to medical ICU at [facility]. Currently he is seen here at [place] ICU. Propofol drip is currently running. 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 Life flighted from [place] for DKA. Adm BG 820 mg/dL. Found [...] Measures: Height: 177.8 cm (5' 10 ) [place] Body Weight (IBW): 166 lbs (75 kg) Admission Body Weight: 81.2 kg (179 lb) Current Body Weight: 81.2 kg (179 lb), 107.8 % IBW. Weight Source: Bed scale Current BMI (kg/m2): 25.7 Weight Adjustment For: No Adjustment BMI Categories: Overweight (BMI 25.0-29.9) Estimated Daily Nutrient Needs: Energy Requirements Based On: Formula Weight Used for Energy Requirements: Current Energy (kcal/day): 8931-0350 kcal/d Weight Used for Protein Requirements: Current [...] hypertension who presents as a transfer from [facility]. He was brought to the ED [...] of home dose lantus Received call from [facility] lab stating one of the blood cultures [...] Date 09/29/24 0000 - 09/29/24 2359 Shift [id number] 1613-5874 9657-8795 24 Hour Total INTAKE I.V.(mL/kg) 2670.3(32.8) 2670.3(32.8) [...] IntraVENous Daily Continuous Infusions: sodium chloride Stopped (09/28/242337) propofol 25 mcg/kg/min (09/29/24713) sodium chloride Stopped (09/28/242123) dextrose 5 % and 0.45 % NaCl 150 mL/hr at 09/29/24713 insulin 1.2 Units/hr (09/29/24655) heparin (PORCINE) Infusion 12 Units/kg/hr (09/29/24713) PRN [...] % ETCO2 (mmHg): 34 mmHg Humidification Source: [facility] ABGs: Arterial Blood Gas result: pH 7.41; pCO2 38; pO2 161; HCO3 25; Lab Results Component Value Date/Time PHART 7.385 09/28/2024 09:42 AM CSN0CJW 35.2 09/28/2024 09:42 AM PO2ART 72.2 09/28/2024 09:42 AM HKA7VQC 20.6 09/28/2024 09:42 AM O6NPHRPC 94.5 09/28/2024 09:42 AM FIO2 30.0 09/29/2024 04:25 AM DATA: Complete Blood Count: Recent Labs 09/28/24 15109/28/24182309/29/24 0305 WBC 17.1* 17.2* 17.6* RBC 3.34* 3.33* 3.08* HGB 9.6* 9.5* 8.8* HCT 27.4* 28.8* 26.1* MCV 82.0* 86.5 84.7 MCH 28.7 28.5 28.6 MCHC 35.0* 33.0 33.7 RDW 13.0 13.0 13.1 PLT 240 226 214 MPV 10.5 10.4 10.6 Last 3 Blood Glucose: Recent Labs 09/28/24 0834 09/28/24 1130 09/28/24 15109/28/24182309/28/24 2216 GLUCOSE 820* 657* 316* 241* 415* PT/INR: Lab Results Component Value Date/Time PROTIME 14.3 09/28/2024 06:24 PM INR 1.1 09/28/2024 06:24 PM PTT: Lab Results Component Value Date/Time APTT 20.2 09/28/2024 06:24 PM Comprehensive Metabolic Profile: Recent Labs 09/28/24 0834 09/28/24 1130 09/28/24 1513 09/28/24182309/28/24 2216 NA 128* < > 137 136 [...] Procedure Component Value Units Date/Time Culture, Respiratory [[id number]] (Abnormal) Collected: 09/28/242053 Order Status: Completed Specimen: Respiratory specimen from Tracheal Aspirate Updated: 09/28/242229 Specimen Description .TRACHEAL ASPIRATE Special Requests Site: Respiratory specimen Direct Exam < 10 EPITHELIAL CELLS/LPF >10, <25 NEUTROPHILS/LPF FEW GRAM POSITIVE COCCI IN PAIRS Culture PENDING MRSA DNA Probe, Nasal [[id number]] Collected: 09/28/241637 Order Status: Sent Specimen: Nares Updated: 09/28/24 163 LEGIONELLA ANTIGEN, URINE [[id number]] Collected: 09/28/241624 Order Status: Completed Specimen: Urine Updated: 09/28/241756 Legionella Pneumophilia Ag, Urine NEGATIVE Comment: L. pneumophila serogroup 1 antigen not detected. A negative result does not exclude infection with Leginella pnemophila serogroup 1 nor does it rule out other microbial-caused respiratory infections of disease caused by other serogroups of Legionella pneumophila. Strep Pneumoniae Antigen [[id number]] Collected: 09/28/241623 Order Status: Completed Specimen: Urine, clean catch Updated: 09/28/24 175 Source .URINE Strep pneumo Ag NEGATIVE Comment: Strep pneumoniae antigen not detected Respiratory Panel, Molecular, with COVID-19 (Restricted: peds pts or suitable admitted adults) [[id number]] Collected: 09/28/24 162 Order Status: Completed Specimen: [...] multiplexed nucleic acid assay. Culture, Blood 1 [[id number]] Collected: 09/28/24838 Order Status: Sent Specimen: Blood Updated: 09/28/24854 Culture, Blood 2 [[id number]] Collected: 09/28/24833 Order Status: Sent Specimen: Blood Updated: 09/28/24856 Radiology/Imaging: US RENAL COMPLETE Result Date: 09/29/2024 1. No evidence of hydronephrosis. 2. Mildly hyperechoic kidneys bilaterally suggesting medical renal disease. 3. Unremarkable appearance of the bladder. A Iln catheter is in place. XR ABDOMEN FOR [...] PROPHYLAXIS: Stress ulcer: [x] PPI Agent [] [id number] [] Sucralfate [] Other: VTE: [] Enoxaparin [...] i Vent Mode: AC/PRVC CV: BP at [place] was 225/110 and started on cardene drip [...] DVT: Heparin 5000 TID GI: Protonix Dispo: SHERITA Mtz MD Family Medicine PGY2 Critical Care [...] per DKA orderset. [facility] to [facility] ER admitted to 3002: Diabetic ketoacidosis with [...] more appropriate time. Regi Mitchell RD, ESE, CDCES documented in [facility] Hospital course Narrative* Rhoda Luna MD - 10/06/2024 8:27 AM EST Images from the original note were not included. [facility] Office: [phone] Andrew Hernandez DO, Ernie Escalante DO, Hal [...] Sarita Mcmullen CNP, Linda Lynch CNP, Ludmila Aguilera, EXCELLENCE SPECIALIST, Lina Morgan DNP, Nini Raya, EXCELLENCE SPECIALIST, Giuliana Mae, EXCELLENCE SPECIALIST, Myra Almodovar, EXCELLENCE SPECIALIST, Suzy Dooley, EXCELLENCE SPECIALIST, Gaviota Rich PA-C, Carley So PA-C, Shelly Rainey,EXCELLENCE SPECIALIST, Manny Laura, EXCELLENCE SPECIALIST, Yenny Motta, EXCELLENCE SPECIALIST, Claudine Parrish, EXCELLENCE SPECIALIST, Maame Carter CNP, Edilma Garza CNP [facility] IN-PATIENT SERVICE [facility] Discharge Summary Patient ID: Ortiz Gorman : 1975 ACCOUNT: [id number] Patient's PCP: Vincent Winters MD Admit Date: 09/28/2024 Discharge Date: 10/06/2024 Length of Stay: 8 Code Status: Full Code Admitting Physician: No admitting provider for patient encounter. Discharge Physician: Rhoda Luna MD Active Discharge Diagnoses: Hospital Problem Lists: Principal Problem: DKA, type 2, not at goal ([facility]) Active Problems: NSTEMI (non-ST elevated myocardial infarction) (H[facility]) Acute metabolic encephalopathy Acute hypoxemic respiratory failure Abnormal finding on MRI of brain Abnormal electrocardiography ABHIJIT (acute kidney injury) ([facility]) Stage 3 chronic kidney disease (HCC) Hypertension Seizures (HCC) Cerebrovascular accident (CVA) ([facility]) Resolved Problems: * No resolved [...] Consults: Final Specialist Recommendations/Findings: IP CONSULT TO INKER AND OPAQUER IP CONSULT TO NEUROLOGY IP CONSULT TO CARDIOLOGY IP CONSULT TO NEPHROLOGY IP CONSULT TO HOME CARE NEEDS The patient was seen and examined on day of discharge A&O X 3 CTAB NSR, NO MRG Soft abdomen , +BS No swelling and pulse palpable Discharge plan: Disposition: Home with home care Physician Follow Up: Jayden Orosco MD [address], [address] [facility] [address] Schedule an appointment as soon as possible for a visit in 6 week(s) Ramy Sanchez MD [address] [place] [facility] [address] Follow up in 1 month(s) Vincent Winters MD [address] [address] Follow up Requiring Further Evaluation/Follow [...] Your Medications These medications were sent to [facility] [place], [place] - [address] - P [phone] - F [phone] [address] [facility] [place] [address] amLODIPine 10 MG tablet aspirin 81 MG chewable tablet atorvastatin 40 MG tablet carvedilol 25 MG tablet insulin lispro 100 UNIT/ML Soln injection vial Insulin Pen Needle 32G X 6 MM Misc Insulin Syringe-Needle U-100 30G X 5/16 0.5 ML Misc Lantus SoloStar 100 UNIT/ML injection pen levETIRAcetam 500 MG tablet losartan 50 MG tablet These medications were sent to [facility] [address] [place], [place] - [address] - [phone] - F [phone] [address] [facility] [phone] Blood Pressure Kit Discharge Procedure Orders MRI Brain W WO Contrast Standing Status: Future Standing Exp. Date: 10/02/25 Order Specific Question Answer Comments STAT Creatinine as needed: Yes Reason for exam: follow up to right cerebral hyperintensities Basic Metabolic Panel Standing Status: Future Standing Exp. Date: 10/06/25 Order Comments: Please fax to Dr. Sanchez at [phone] Time Spent on discharge is 40 mins in patient examination, evaluation, counseling as well as medication reconciliation, prescriptions for required medications, discharge plan and follow up. Electronically signed by Rhoda Luna MD 10/06/2024 12:44 PM Thank you Vincent Roman MD for the opportunity to be involved in this patient's care. documented in this encounterBon [facility]12-[facility] Hospital Discharge instructions* Discharge Instructions* Joseline [...] patient's room Diabetes Education phone number is [phone]. You worked with Joseline Teague RN * [...] fluro performed by Vincent Kuhn DO at [facility] [place] Immunization History: Immunization History Administered Date(s) Administered COVID-19, J&J, (age 18y+), IM, 0.5 mL 02/24/2021 Active Problems: Patient Active Problem List Diagnosis Code Diabetic acidosis without coma (HCC) E11.10 Mild malnutrition (HCC) E44.1 Bacteremia due to Staphylococcus aureus R78.81, B95.61 Sinus tachycardia R00.0 Acute metabolic encephalopathy G93.41 Hypertensive emergency I16.1 Fever R50.9 Altered mental status R41.82 Encephalopathy acute G93.40 Hypertensive urgency I16.0 Lactic acidosis E87.20 Central apnea R06.81 DKA, type 2, not at goal ([facility]) E11.10 Acute hypoxemic respiratory failure J96.01 NSTEMI (non-ST elevated myocardial infarction) ([facility]) I21.4 Abnormal finding on MRI [...] Independent Dressing Independent Toileting Independent Feeding Independent Application Integrator Independent Med Delivery whole Wound Care Documentation [...] Status Date: 09/28/24 Readmission Risk Assessment Score: [facility] RISK OF UNPLANNED READMISSION 2.0 16.9 Total Score Discharging to Facility/ Agency Name: [facility] Address: Fax: Dialysis Facility (if applicable) Name: Address: Dialysis Schedule: Phone: Fax: Sales Program Manager/Planner Chief signature: at11:44 AM EST PHYSICIAN SECTION Prognosis: [...] Insulin Pen: How to Use: General Info (Mauritian) * Diabetes: Type 2: General Info (Mauritian) * Diabetes Diet Meal Planning: General Info (Mauritian) * Seizure (Mauritian) * Levetiracetam Extended Release Oral Tablet (LEVETIRACETAM - ORAL) (Mauritian) [facility] in [facility] Hospital Discharge instructions* Discharge Instructions* Maulik [...] Carb Counting and Eating Well: General Info (Mauritian) documented in this [facility]RAP[facility] History of Present illness Narrative* Saturnino Govea MD - 01/22/2024 12:43 PM EDT Images from the original note were not included. [facility] Progress Note Ortiz Gorman Date: 01/22/2024 LOS: 3 Reason for F/U : Possible meningitis Impression : Altered mental status concern for toxic metabolic encephalopathy versus primary BEAD STRINGER process Status post lumbar puncture 01/19/2024 at IR and CSF findings not consistent with primary BEAD STRINGER infection Respiratory failure-intubated for airway protection Extubated [...] on Rocephin, vancomycin, and acyclovir empirically for BEAD STRINGER infection Antibiotics were narrowed down to Rocephin [...] to call us back Infection Control Recommendations: [place] precautions Discharge Planning: Patient will need Midline [...] pressure was 240 prompting transfer here to [facility] The patient continued to [...] 0 Tube Number, CSF 3 Resulting Agency [facility] Specimen Collected: 01/19/24 15:56 EDT Last Resulted: [...] Component Value Units Date/Time Culture, Blood 1 [[id number]] Collected: 01/19/24813 Order Status: Completed Specimen: Blood Updated: 01/22/2418 Specimen Description .BLOOD Special Requests R HAND 5 ML Culture NO GROWTH 3 DAYS Culture, Blood 1 [[id number]] Collected: 01/19/24 0810 Order Status: Completed Specimen: Blood Updated: 01/22/24913 Specimen Description .BLOOD Special Requests L HAND 5 ML Culture NO GROWTH 3 DAYS Culture, CSF [[id number]] Collected: 01/19/24 1553 Order Status: Completed Specimen: CSF Updated: 01/22/24 0721 Specimen Description .CSF Direct Exam RARE NEUTROPHILS NO ORGANISMS SEEN Gram stain made from cytocentrifuged specimen. Organisms and cells will be concentrated. Culture NO GROWTH 3 DAYS Lyme Disease AB, CSF [[id number]] Collected: 01/19/24 1556 Order Status: Completed Specimen: [...] developed and its performance characteristics determined by The Art Commission. It has not been cleared or approved by the US Food and Drug Administration. This test was performed in a CLIA certified laboratory and is intended for clinical purposes. Performed By: [employer] [address] [place] [id number] Event Staff Member: Rogelio Miranda MD, PhD CLIA Number: [id number] VDRL CSF [[id number]] Collected: 01/19/24 1556 Order Status: Completed Specimen: CSF Updated: 01/20/24 1119 VDRL, CSF Screen NONREACTIVE Culture, Urine [[id number]] Collected: 01/19/24 0911 Order Status: Completed Specimen: Urine, straight catheter Updated: 01/20/24 0853 Specimen Description .URINE,STRAIGHT CATHETER Culture NO GROWTH Meningitis Encephalitis Panel CSF, Molecular [[id number]] Collected: 01/19/24 1556 Order Status: Completed Specimen: [...] nucleic acid assay. West Nile Virus, CSF [[id number]] Collected: 01/19/24 1556 Order Status: Sent Specimen: CSF Updated: 01/19/24 1557 Herpes simplex virus PCR [[id number]] Collected: 01/19/24 1548 Order Status: Sent Specimen: CSF Updated: 01/19/24 1548 Gram stain CSF [[id number]] Collected: 01/19/24 1546 Order Status: Canceled Specimen: Spinal Fluid Culture, Respiratory [[id number]] Order Status: No result Specimen: Endotracheal Respiratory Panel, Molecular, with COVID-19 (Restricted: peds pts or suitable admitted adults) [[id number]] Collected: 01/19/24 0909 Order Status: Completed Specimen: [...] nucleic acid assay. MRSA DNA Probe, Nasal [[id number]] Collected: 01/19/24 0437 Order Status: Completed Specimen: [...] mL Mouth/Throat BID [facility] Saturnino Govea MD [employer] OFFICE: Thank you for allowing us to [...] be extrapolated by contextual diversion. * Marce Restrepo APRN - EXCELLENCE SPECIALIST - 01/22/2024 8:07 AM EDT Images from [...] who was admitted as a transfer from [facility] on 01/19/2024 with persistent headache. While at [facility] patient reportedly worsened in regards to his mentation and became more confused and agitated prompting transfer to [facility] for further evaluation andcare. He was significantly hypertensive and was admitted to the medical ICU and placed on a Cardenedrip. The morning of 01/18 he continued to worsen and ultimately required intubation. Also developed a fever requiring an infectious workup; he underwent LP on 01/18 with findings not consistent with a primary BEAD STRINGER infection nor suggestive of SAH. No current [...] fluro performed by Vincent Kuhn DO at [facility] [place] Social History: Ortiz Gorman reports [...] tested Data: Lab Results: CBC: Recent Labs 01/20/24 0336 01/21/24 0452 [...] a similar admission 3 months ago at [facility] with acute respiratory failure in [...] to ensure the accuracy of this automated drop hammer pile driver operator, some errors in drop hammer pile driver operator may have occurred. Associated attestation - [...] bands are pending. Will add [facility] encephalitis panel. Discussed with patient at [...] from the original note were not included. [facility] Internal Medicine Teaching Residency Program Inpatient Daily Progress Note Patient: Ortiz Gorman Date of : 1975 Acct: [id number] Room: [address] [place] [address] Admit date: 01/19/2024 Today's date: 01/22/24 Number [...] the past 1 to 2 days at [facility]. He wasalso noted to have left-sided facial droop, left-sided deficits and there was a concern for possible dysarthria, telestroke team was consulted. Imaging was negative for any kind of acute changes likeCT and CTA head and neck. His blood pressure was in the 240s, patient was started on Cardene drip with improvement. And later was transferred to the [facility] ICU. On arrival to the ICU his bloodsugars were in 500s, and was started on insulin drip. Patient was later intubated, due to concerns for central apnea for airway protection. For the concerns of BEAD STRINGER infection patient was started on Chaim ephin, vancomycin and acyclovir empirically. These antibiotics were narrowed down to Rocephin on 01/20/2024. Underwent MRI and LP for the concerns of BEAD STRINGER infections which were negative. His neurological status significantly improved after his blood pressure, blood sugars were controlled. On neurology evaluation, there was concern of acute encephalopathy of unclear origin, CSF studies had been ruling out any kind of BEAD STRINGER infection, and head imaging had been ruling [...] % and 0.45 % NaCl Stopped (01/20/24 0370) PRN Medicationsmelatonin, 5 mg, Nightly PRN labetalol, [...] PLT 158 162 164 BMP: Recent Labs 01/20/24 2027 01/21/24 0452 01/22/24 0508 NA 135* 136 136 [...] Jamal Patel MD Internal Medicine Resident, PGY-1 [place], [place] 01/22/2024,7:13 AM Associated attestation - Trino [...] Attending Physician Internal Medicine Residency Program, Nephrology [facility] 01/22/2024, 1:22 PM * Jamal Patel MD - 01/21/2024 10:21 PM EDT Images from the original note were not included. [facility] Department of Internal Medicine - Staff Internal Medicine Service ICU PATIENT TRANSFER NOTE Patient: Ortiz Gorman Date of : 1975 Acct: [id number] Admit date: 01/19/2024 Code Status:- Full code [...] to 2days. He initially presented at the [facility]. He was also noted to have left-sided facial droop, left-sided deficits and there was a concern for possible dysarthria, telestroke team was consulted. Imaging was negative for any kind of acute changes like CT and CTA head and neck. His blood pressure was in the 240s, patient was started on Cardene drip with improvement. And later was transferred to the [facility] ICU. On arrival to the ICU his blood sugars were in 500s, and was started oninsulin drip. Patient was later intubated, due to central apnea for airway protection. For the concerns of BEAD STRINGER infection patient was started on Rocephin, vancomycin and acyclovir empirically. These antibiotics were narrowed down to Rocephin on 01/20/2024. Underwent MRI and LP for the concerns of BEAD STRINGER infections which were negative. His neurological status significantly improved after his blood pressure, blood sugars were controlled. On neurology evaluation, there was concern of acute encephalopathy of unclear origin, CSF studies had been ruling out any kind of BEAD STRINGER infection, and head imaging hadbeen ruling out hemorrhage. Patient returned to baseline. Neurology recommendations were follow-up with MRI in 6 to 8 weeks. On 01/19 patient was extubated. Insulin drip was transitioned to subcutaneous insulin. Patient was also started on Coreg for his hypertension. Physical Exam: Vitals: BP (!) 193/107 Comment: notified; recheck 176/94 Pulse 79 Temp 98.5 [...] Jamal Patel MD Department of Internal Medicine [facility] [place] 01/21/2024, 10:22 PM * Aidee Rodriguez MD - 01/21/2024 6:20 PM EDT Critical care team - Resident sign-out to medicine service Date and time: 01/21/2024 6:21 PM Patient's name: Ortiz Gorman Patient's account/billing number: [id number] Patient's Date of : 1975 Age: 48 [...] and untreated hypertension Patient originally presented to [facility] with complaints of high sugars and a [...] of his pressures. Patient was transferred to [facility] ICU for further care and neuro evaluation. [...] New fever while in department. Concern for BEAD STRINGER infection. MRI and LP pending. 01/19: MRI [...] Aidee Rodriguez MD PGY-2, Internal Medicine Resident [facility], [place] 01/21/2024, 7:22 PM * Sarthak Sepulveda RN [...] from the original note were not included. [facility] Neurology IN-PATIENT SERVICE NEUROLOGY PROGRESS NOTE [...] the chart was reviewed. Initially presented to [facility] on 01/17 evening due to persistent headache. Reportedly at [facility] patient worsened as far as his mentation becoming more confused, agitated requiring transfer to [place]. He was significantly hyp ertensive prompting medical [...] fluro performed by Vincent Kuhn DO at [facility] [place] Medications during admission: insulin glargine [...] touch, pin, vibration, proprioception throughout Cerebellar Intact gfxpns-adlf-choxuz testing. Intact heel-langley testing. No dysdiadochokinesia present. Reflex function 2/4 symmetric throughout . Downgoing plantar response bilaterally. (-)Freitas's sign bilaterally Gait Not assessed Diagnostics: Laboratory Testing: CBC: Recent Labs 01/19/24 0445 01/20/24 0336 [...] emergency Similar admission 3 months ago at [facility] with acute respiratory failure in the setting of agitation and hypertensive crisis Plan: Patient essentially back to baseline neurologically. Did have discussion with him regarding the events leading up to hospitalization in which he just remembers feeling off . He states he felt like he did back in end of August when he had his first hospitalization at [facility] with elevated blood sugars and blood pressures. [...] transferred to stepdown unit at this time dAdy Brown DO [facility] Neurology * Saturnino Govea MD - 01/21/2024 1:54 PM EDT Images from the original note were not included. [facility] Progress Note Ortiz Gorman Date: 01/21/2024 LOS: 2 Reason for F/U : Possible meningitis Impression : Altered mental status concern for toxic metabolic encephalopathy versus primary BEAD STRINGER process Status post lumbar puncture 01/19/2024 at IR and CSF findings not consistent with primary BEAD STRINGER infection Respiratory failure-intubated for airway protection Extubated [...] on Rocephin, vancomycin, and acyclovir empirically for BEAD STRINGER infection Antibiotics were narrowed down to Rocephin [...] the Rocephin as well Infection Control Recommendations: Williamson precautions Discharge Planning: Estimated Length of IV [...] pressure was 240 prompting transfer here to [facility] The patient continued to [...] 0 Tube Number, CSF 3 Resulting Agency [facility] Specimen Collected: 01/19/24 15:56 EDT Last Resulted: [...] Procedure Component Value Units Date/Time Culture, CSF [[id number]] Collected: 01/19/24 1553 Order Status: Completed Specimen: CSF Updated: 01/20/24729 Specimen Description .CSF Direct Exam RARE NEUTROPHILS NO ORGANISMS SEEN Gram stain made from cytocentrifuged specimen. Organisms and cells will be concentrated. Culture NO GROWTH 15 HOURS Culture, Blood 1 [[id number]] Collected: 01/19/24 0814 Order Status: Completed Specimen: Blood Updated: 01/19/242117 Specimen Description .BLOOD Special Requests R HAND 5 ML Culture NO GROWTH 12 HOURS Culture, Blood 1 [[id number]] Collected: 01/19/24 0810 Order Status: Completed Specimen: Blood Updated: 01/19/242113 Specimen Description .BLOOD Special Requests L HAND 5 ML Culture NO GROWTH 12 HOURS Meningitis Encephalitis Panel CSF, Molecular [[id number]] Collected: 01/19/24 1556 Order Status: Completed Specimen: [...] by multiplexed nucleic acid assay. VDRL CSF [[id number]] Collected: 01/19/24 1556 Order Status: Sent Specimen: CSF Updated: 01/19/24 1557 Lyme Disease AB, CSF [[id number]] Collected: 01/19/24 1556 Order Status: Sent Specimen: CSF Updated: 01/19/24 1557 West Nile Virus, CSF [[id number]] Collected: 01/19/24 1556 Order Status: Sent Specimen: CSF Updated: 01/19/24 1557 Herpes simplex virus PCR [[id number]] Collected: 01/19/24 1548 Order Status: Sent Specimen: CSF Updated: 01/19/24 1548 Gram stain CSF [[id number]] Collected: 01/19/24 1546 Order Status: Canceled Specimen: Spinal Fluid Culture, Respiratory [[id number]] Order Status: No result Specimen: Endotracheal Respiratory Panel, Molecular, with COVID-19 (Restricted: peds pts or suitable admitted adults) [[id number]] Collected: 01/19/24 0909 Order Status: Completed Specimen: [...] by multiplexed nucleic acid assay. Culture, Urine [[id number]] Collected: 01/19/24910 Order Status: Sent Specimen: Urine, straight catheter Updated: 01/19/24910 MRSA DNA Probe, Nasal [[id number]] Collected: 01/19/247 Order Status: Completed Specimen: Nasal Updated: 01/19/24852 [...] mL Mouth/Throat BID [facility] Saturnino Govea MD [employer] OFFICE: Thank you for allowing us [...] and untreated hypertension Patient originally presented to [facility] with complaints of high sugars and a [...] of his pressures. Patient was transferred to [facility] ICU for further care and neuro evaluation. [...] New fever while in department. Concern for BEAD STRINGER infection. MRI and LP pending. 01/19: MRI [...] Date 01/21/24 0000 - 01/21/24 2359 Shift 3794-3730 9539-0657 6651-5876 24 Hour Total INTAKE I.V.(mL/kg) 955.3(10.4) 955.3(10.4) [...] PROPHYLAXIS: Stress ulcer: [x] PPI Agent [] [id number] [] Sucralfate [] Other: VTE: [] Enoxaparin [...] this chart was generated using voice recognition [employer] dictation software. Although every effort was made to ensure the accuracy of this automated drop hammer pile driver operator, some errors in drop hammer pile driver operator may have occurred. Sarmad Daly MD 01/21/2024 11:57 AM * Addy Brown DO - 01/20/2024 12:29 PM EDT Images from the original note were not included. [facility] IN-PATIENT SERVICE NEUROLOGY PROGRESS NOTE [...] the chart was reviewed. Initially presented to [facility] on 01/17 evening due to persistent headache. Reportedly at [facility] patient worsened as far as his mentation becoming more confused, agitated requiring transfer to [place]. He was significantly hyp ertensive prompting medical [...] fluro performed by Vincent Kuhn DO at [facility] Medications during admission: cefTRIAXone (ROCEPHIN) [...] emergency Similar admission 3 months ago at [facility] with acute respiratory failure in the setting [...] abnormalities. Upon chart review he was at [facility] in September with similar type of presentation acute delirium, agitation requiring intubation and acute respiratory failure. Eventually was extubated and left AMA. At that time MRI brain was reported as normal. Critical care recommendations Continued blood pressure management Will follow Addy Brown DO [facility] Neurology * Saturnino Govea MD - 01/20/2024 8:41 AM EDT Images from the original note were not included. [facility] Progress Note Ortiz Gorman Date: 01/20/2024 LOS: 1 Reason for F/U : Possible meningitis Impression : Altered mental status concern for toxic metabolic encephalopathy versus primary BEAD STRINGER process Respiratory failure-intubated for airway protection Diabetes mellitus type 2 poorly controlled-currently on insulin Hypertensive emergency responded well to Cardene drip and has been able to wean off of it Concern for stroke given left-sided facial droop, dysarthria Chronic kidney disease stage III History of substance abuse Recommendations: The CSF findings are not consistent with a primary BEAD STRINGER infection and therefore the antimicrobial therapy will be narrowed to Rocephin alone The blood culture data thus far remains negative The patient's mentation is markedly improved he is awake and alert following commands and no focal deficits appreciated I will continue to follow his progress and adjust therapy accordingly Infection Control Recommendations: Williamson precautions Discharge Planning: Estimated Length of IV [...] pressure was 240 prompting transfer here to [facility] The patient continued to [...] 0 Tube Number, CSF 3 Resulting Agency [facility] Specimen Collected: 01/19/24 15:56 EDT Last Resulted: [...] Procedure Component Value Units Date/Time Culture, CSF [[id number]] Collected: 01/19/24 1553 Order Status: Completed Specimen: CSF Updated: 01/20/2430 Specimen Description .CSF Direct Exam RARE NEUTROPHILS NO ORGANISMS SEEN Gram stain made from cytocentrifuged specimen. Organisms and cells will be concentrated. Culture NO GROWTH 15 HOURS Culture, Blood 1 [[id number]] Collected: 01/19/24 0814 Order Status: Completed Specimen: Blood Updated: 01/19/242117 Specimen Description .BLOOD Special Requests R HAND 5 ML Culture NO GROWTH 12 HOURS Culture, Blood 1 [[id number]] Collected: 01/19/24 0810 Order Status: Completed Specimen: Blood Updated: 01/19/242113 Specimen Description .BLOOD Special Requests L HAND 5 ML Culture NO GROWTH 12 HOURS Meningitis Encephalitis Panel CSF, Molecular [[id number]] Collected: 01/19/24 1556 Order Status: Completed Specimen: [...] by multiplexed nucleic acid assay. VDRL CSF [[id number]] Collected: 01/19/24 1556 Order Status: Sent Specimen: CSF Updated: 01/19/24 1557 Lyme Disease AB, CSF [[id number]] Collected: 01/19/24 1556 Order Status: Sent Specimen: CSF Updated: 01/19/24 155 West Nile Virus, CSF [[id number]] Collected: 01/19/24 1556 Order Status: Sent Specimen: CSF Updated: 01/19/24 1557 Herpes simplex virus PCR [[id number]] Collected: 01/19/24 1548 Order Status: Sent Specimen: CSF Updated: 01/19/24 1548 Gram stain CSF [[id number]] Collected: 01/19/24 1546 Order Status: Canceled Specimen: Spinal Fluid Culture, Respiratory [[id number]] Order Status: No result Specimen: Endotracheal Respiratory Panel, Molecular, with COVID-19 (Restricted: peds pts or suitable admitted adults) [[id number]] Collected: 01/19/24 0909 Order Status: Completed Specimen: [...] by multiplexed nucleic acid assay. Culture, Urine [[id number]] Collected: 01/19/24910 Order Status: Sent Specimen: Urine, straight catheter Updated: 01/19/24910 MRSA DNA Probe, Nasal [[id number]] Collected: 01/19/24 0437 Order Status: Completed Specimen: Nasal Updated: 01/19/24852 [...] mL Mouth/Throat BID [facility] Saturnino Govea MD [employer] OFFICE: Thank you for allowing us to [...] - 01/20/2024 Room and Bed Number - 3002/3002- Hospital Day - 1 HPI: History was obtained from chart review and the patient. Ortiz Gorman is a 48 y.o. male with a past medical history of diabetes and untreated hypertension Patient originally presented to [facility] with complaints of high sugars and a [...] of his pressures. Patient was transferred to [facility] ICU for further care and neuro evaluation. [...] New fever while in department. Concern for BEAD STRINGER infection. MRI and LP pending. SUBJECTIVE: OVERNIGHT [...] kg (197 lb 12.8 oz) 01/20/24 0530 95/61 -- -- 73 16 100 % -- 01/20/24 0500 98/60 -- -- 74 16 100 % -- 01/20/24 0449 -- -- -- -- -- 100 % -- 01/20/24 0430 96/60 -- -- 75 16 100 % -- 01/20/24 0400 99/61 98.6 F (37 C) Oral 74 16 [...] Date 01/20/24 0000 - 01/20/24 2359 Shift 8878-2410 4481-8044 3098-6127 24 Hour Total INTAKE I.V.(mL/kg) 1365.5(15.2) 1365.5(15.2) [...] Last 3 Blood Glucose: Recent Labs 01/18/24224401/19/2444401/19/24135201/19/24191201/20/2413901/20/24 0336 GLUCOSE 242* 530* 208* 257* 135* [...] PROPHYLAXIS: Stress ulcer: [x] PPI Agent [] B6Dkcre [] Sucralfate [] Other: VTE: [] Enoxaparin [...] this chart was generated using voice recognition [employer] dictation software. Although every effort was made to ensure the accuracy of this automated drop hammer pile driver operator, some errors in drop hammer pile driver operator may have occurred. Sarmad Daly MD [...] assess Fluid Accumulation: No significant fluid accumulation Casting Wheel Operator Strength: Not Performed Nutrition Assessment: Pt [...] Measures: Height: 177.8 cm (5' 10 ) [place] Body Weight (IBW): 166 lbs (75 kg) Admission Body Weight: 88.5 kg (195 lb 1.7 oz) Current Body Weight: 88.5 kg (195 lb 1.7 oz), 117.5 % IBW. Weight Source: Bed Scale Current BMI (kg/m2): 28 Weight Adjustment For: No Adjustment BMI Categories: Overweight (BMI 25.0-29.9) Estimated Daily Nutrient Needs: Energy Requirements Based On: Kcal/kg Weight Used for Energy Requirements: Admission Energy (kcal/day): 0046-0001 kcals/day Weight Used for Protein Requirements: Admission [...] Too soon to determine Alba Denson RD, ESE Contact: [phone] / [phone] * Toan Reece RN - 01/19/2024 3:22 PM EDT Patient to IR for lumbar puncture, assisted to table in prone position. JR PA and CM RT at bedside. Site prepped and draped, area numbed with lidocaine. 12ml of clear fluid drained. Specimen collected. Band aid placed to site. Patient tolerated well and is transported back to room with BILINGUAL INSTRUCTOR and respiratory therapist. * Xochitl Hampton MD [...] daughter, Yamileth Gorman, who is a medical center director, at and updated on patient's condition, including [...] Nielson RP - 01/19/2024 11:34 AM EDT [facility] Pharmacokinetic Monitoring Service - Vancomycin Ortiz [...] agitation CT Head, CTA head/neck negative at outlying facility, no TNK given per telestroke Neurology consulted, recommend MRI once more stable EtOH negative UDS negative CIWA protocol, ativan held due to depressed mentation currently Thiamine, folate Given extensive periods of apnea and inability to obtain MRI or LP in current condition, will intubate patient this morning Lumbar puncture today MRI today Sitter at bedside Cardiology HTN emergency, SBP 250 at [facility] Cardene gtt now weaned off SBP [...] 13.2 Newly febrile to 101.1, afebrile at [facility] Meningitis prophylaxis initiated with acyclovir, rocephin, and vanco ID consulted Blood Cx NG < 24 h UA + moderate ketones, negative nitrite and LE, urine Cx pending RPP negative CRP 3.7 ESR 28 Endo DKA Glucose [phone] BHB 3.37 Insulin gtt, 1/2 NS gtt DKA protocol BMP q 4h HBA1c 12 Heme H/H 12.9 / 37 Plt 68 at [facility], 91 here DVT: Heparin SC, held this AM for lumbar puncture GI: Protonix WEAN PER PROTOCOL: [] No [x] Yes [] N/A ICU PROPHYLAXIS: Stress ulcer: [x] PPI Agent [] F4Whcal [] Sucralfate [] Other: VTE: [] Enoxaparin [...] this chart was generated using voice recognition [employer] dictation software. Although every effort was made to ensure the accuracy of this automated drop hammer pile driver operator, some errors in drop hammer pile driver operator may have occurred. Sarmad Daly MD 01/19/2024 10:52 AM documented in [facility]* Nursing Notes - Eveline Elias LPN - 09/24/2023 7:27 PM EST Patient leaving AMA at this time. This nurse educated patient and patient son about the risks of leaving AMA. Dr. Juarez notified on patient's decision. [facility]12-09-2023 Miscellaneous Notes* Nursing Notes - Eveline [...] EST Head to toe reassessment completed by bid writer and is unchanged from previous head to toe assessment,please refer to flow sheets. * Plan of Care - Natty Lloyd - 09/23/2023 9:39 AM EST Problem: Dysphagia (Adult) Goal: Functional/Safe Swallow Description: Diet Recommendations and Strategies Regular Thin Liquids Meds whole with thin liquid Plan of Care: Frequency: 1x follow up Duration: 1 week Goals: Prison: Ortiz Gorman will be able to consume [...] regarding dysphagia diagnosis, diet, and treatment recommendations. BOLT MAN will assist in establishing adequate oral hygiene [...] states he is at [facility], when reoriented that he is in [place] he states shoot I knew that . [...] at this time. * Nursing Notes - Sujatah Walker RN - 09/22/2023 7:35 PM EST Patient calm, but remains confused at this time. Stated he is at [facility], the year is 2002, and Duran [...] RN - 09/22/2023 3:07 PM EST Delia chairez per . Patient going to MRI. Neuro [...] 09/21/2023 9:00 PM EST On admission to [facility] ICU, from ED a dual RN initial assessment of skin condition was performed by Amna Irvin RN and Joseline Paez, RN. Skin Assessment: Skin within defined limits:Yes [...] bagged with 100% FiO2. documented in this encounterMer[facility] Nurse Note* Nursing Notes - Eveline Elias LPN - 09/24/2023 4:00 PM EST Assessment unchanged from previous. Call light within reach. [facility]12-09-2023 Nurse Note* Nursing Notes - Eveline Elias LPN - 09/24/2023 12:00 PM EST Assessment completed at this time. Refer to flowsheets if any changes were made. Call light within reach. Pt denies having any needs. [facility]12-09-2023 Hospital course Narrative* Cecil Ivan APRN-PARKER - 09/24/2023 10:17 AM EST Discharge Summary [...] Now resolved UDS: Positive for MDMA - marketing services coordinator consulted: Patient denied using MDMA, states he [...] as tolerated Discharge Follow-up: Vincent Winters MD [address] [facility] [address] Call Post-Hospital Follow Up Discharge Disposition: Patient will be discharged in stable condition. Discharge Time: Including assessment, planning, and medication reconciliation was 8 minutes of EXCELLENCE SPECIALIST time. Cecil Ivan CNP completing Discharge Summary for Dr. Bird Please note Portions of this note utilized [email or web address] dictation software, please excuse any typographical or [...] Please note: Portions of this note utilized [email or web address] dictation software, please excuse any typographical or grammatical errors. Which inadvertently, might change the meaning and understanding. documented in this encounterMer[facility]12-[facility]23 Nurse Note* Nursing Notes - Toan Calvin RN - 09/24/2023 4:35 AM EST No change in assessment from previous [facility]12-08-[facility] History of Present illness Narrative* TAN Moctezuma - 09/23/2023 4:35 PM EST 09/23/23 1300 Referral Information Arrived From home or self-care Information Source Information Source patient ;review of medical record Information Source Name Ortiz Sherif Contact Information Sales Program Manager/SW Added to Care Team Yes This Television Technician is Primary Sales Program Manager/SW Yes Social Work Contact Name Rachael Fox Planner Chief's Living Environment Lives With alone Living Arrangements house Primary Care Provided By self Support System Immediate family Able to Return to Prior Arrangements yes Functional Status Patient's Functional Status Prior To This Admission? Independent Employment/Financial Employed? Yes Employment Details [employer] Employment/Financial Concerns no Financial Concerns none Insurance Medical Insurance Verified Yes Initial Discharge Planning Home Care Services (PUBLIC HEALTH SPECIALIST) No DME (PUBLIC HEALTH SPECIALIST) Straight cane;Wheelchair;Walker Patient Goal for Discharge Return [...] Left UE Assessment Details Grossly 5/5 Hand Casting Wheel Operator Strength Hand Casting Wheel Operator Strength Interpretation Left above expected range (strong);Right above expected range (strong) Sit to Stand Transfer [place] Level: Sit->Stand supervision Assistive Device: Sit->Stand gait belt Stand to Sit Transfer [place] Level: Stand->Sit supervision Assistive Device: Stand->Sit gait belt Sitting Balance Static Sitting-Level of Assistance Independent Dynamic Sitting-Level of Assistance Independent Standing Balance Static Standing-Level of Assistance Supervision Dynamic Standing-Level of Assistance Supervision LE Dressing LE Dressing Assistance Independent LE Dressing Location edge of bed LE Dressing Intervention/Details Pt pulled up each leg to bed to doff/don bilateral medical screener socks withno hands-on assist required. Patient Education/Instruction [...] Ma, PT - 09/23/2023 2:25 PM EST 09/23/23 1425 Time In/Out Time In 1425 [...] of Function Details Drove, independent. PRIOR LEVEL AM-[facility] Basic Mobility Inpatient Short Form Turning over in bed 4 - No Assistance Sitting/standing from chair 4 - No Assistance Moving from lying on back to sitting 4 - No Assistance Moving to and from bed to chair 4 - No Assistance Walk in hospital room 4 - No Assistance Climbing 3-5 steps with a railing 4 - No Assistance PRIOR LEVEL AM-[facility] Mobility Raw Score 24 PRIOR LEVEL AM-[facility] Mobility Functional Limitation/Modifier 0.00% Prior Functional Impairment [...] UE lean onto bed rail) Rolling/Turning Mobility [place] Level: Rolling/Turning independent Scooting Bridging Mobility [place] Level: Scooting/Bridging independent Supine to Sit Mobility [place] Level: Supine->Sit independent Skilled Intervention/Details: Supine->Sit Patient did require to sit EOB for short period prior to transition to stand. BP taken and no decrease from baseline. Sit to Stand Transfer [place] Level: Sit->Stand minimum assist (75% patient effort) Skilled Intervention/Details: Sit->Stand Assist needed d/t inability to maintain in one plane ofmovement, compensated for balance and/or functional weakness with a deviation to straight sit to stand. Bed-Chair Transfer [place] Level: Bed<->Chair (pt declined up to chair) Gait Assessment [place] Level: Gait moderate assist (50% patient effort) [...] the bed, patient w/ scissored gait) CURRENT -[facility] Basic Mobility Inpatient Short Form Turning [...] a railing 1 - Total Assistance CURRENT -[facility] Mobility Raw Score 17 CURRENT -[facility] Mobility Functional Limitation/Modifier 50.57% Currently Impaired [...] had multiple hospitalizations in [facility] previously for infection. Evaluation as noted, [...] into the home/community. Brittney Ma PT * RODRIGUEZ Shepherd - 09/23/2023 11:25 AM EST DAILY PROGRESS NOTE Admit Date: 09/21/2023 Date of Evaluation: 1:25 AM [facility] LOS: 2 days SUBJECTIVE: Patient [...] solution 3 mL 3 mL Nebulization Q4H PRNSRODRIGUEZ Roberts Labetalol (NORMODYNE) injection 20 mg 20 mg [...] GI/DVT Prophylaxis: Protonix/Lovenox 6 minutes spent of EXCELLENCE SPECIALIST time including assessment, planning, and discussion with [...] Please note: Portions of this note utilized [email or web address] dictation software, please excuse any typographical or grammatical errors. Which inadvertently, might change the meaning and understanding. * Aracely Richard, DIRECTOR OF COUNSELING-EXCELLENCE SPECIALIST - 09/23/2023 11:01 AM EST Neurology Inpatient Progress Note (Video) [facility] 09[facility] Patient: Ortiz Gorman Date of [...] problems updated. 47 y.o. male presented to [facility] on 09/21/2023 with AMS PLAN: Altered mentation- [...] & GROSS MOTOR: Abnormal Movements: None Coordination Tywmzx-oh-Mjca: Normal Coordination Cnyf-Qagk-Uyog: Normal Drift: None Tone: Normal Bulk: Normal [...] conducted by the provider in the office: [address] [place] [address] and the patient offsite: [facility] Time spent in medical discussion with patient [...] assessment and plan and agree with the EXCELLENCE SPECIALIST findings and plan of care as documented. [...] Portions of this chart were created using [email or web address] electronic dictation. Please excuse any typographical or grammatical errors contained herein as a result. * Natty Desai - 09/23/2023 9:31 AM EST [facility] SPEECH-LANGUAGE PATHOLOGY Inpatient Clinical Dysphagia Evaluation Date of Admission: 09/21/2023 Date of Evaluation: 09/23/2023 Attending Physician: Karl Bird MD Admitting Diagnosis: ICD-10-CM 1. Altered mental status, unspecified altered mental status type R41.82 2. Hypertensive emergency I16.1 Treating Diagnosis: Dysphagia, other R13.19 Current Method of Nutrition: NPO without meds History of Presenting Illness: Ortiz Gorman is a 47 y.o. male who presents to [facility] ICU given AMS. He was intubated on 09/21/23 and extubated on 09/22/23. His drug screen was positive for Brian and MDMA. A Brain MRI from yesterday found no acute process. Ortiz Gorman was referred for a dysphagia evaluation given extubation and AMS. Prior BOLT MAN history/Instrumentals: No previous history of ST. No [...] phase appears WFL. STRATEGIES TRIALED/Response N/A N/A [place] Swallow Screen: (administered by: Nursing) [place] Swallow Screening Screening Exclusion Criteria: unable to remain alert for testing [place] Swallow Screening Result: excluded from swallow screen [...] 1x follow up Duration: 1 week Goals: Silver Designer: Ortiz Gorman will be able to consume [...] regarding dysphagia diagnosis, diet, and treatment recommendations. BOLT MAN will assist in establishing adequate oral hygiene for reduced risk of pulmonary compromise given dysphagia diagnosis. Natty Desai MS, CCC-BOLT MAN Speech-Language Pathologist Total Treatment Time: 15 minutes * TAN Moctezuma - 09/22/2023 3:42 PM EST Chart reviewed. Patient extubated this afternoon. SW attempted to speak with patient x2 after extubation, neurology in room and then patient was at MRI. Will continue to follow. documented in this encounterMer[facility]12-08-2023 Nurse Note* Nursing Notes - Natalio Naranjo RN - 09/23/2023 12:00 PM EST Head to toe reassessment completed by bid writer and is unchanged from previous head to toe assessment,please refer to flow sheets. [facility]12[facility] Procedure note* Coretta Ochoa - 09/23/2023 11:36 AM ESTAssociated Order(s): EEG AWAKE, ROUTINE Interpreting physician: Cecil Yu M.D. This is a routine EEG performed on a 47 y.o. year-old male using standard 10-20 lead placement and a [employer] [place] system. All data was obtained digitally and [...] with a moderate diffuse encephalopathy. [facility]12-08-[facility] Procedure note* Coretta Ochoa - 09/23/2023 11:36 AM ESTAssociated Order(s): EEG AWAKE, ROUTINE Interpreting physician: Cecil Yu M.D. This is a routine EEG performed on a 47 y.o. year-old male using standard 10-20 lead placement and a [employer] [place] system. All data was obtained digitally and [...] a moderate diffuse encephalopathy. documented in this encounterMer[facility]12-08-2023 Plan of care note* Plan of Care - Natty Desai - 09/23/2023 9:39 AM EST Problem: Dysphagia (Adult) Goal: Functional/Safe Swallow Description: Diet Recommendations and Strategies Regular Thin Liquids Meds whole with thin liquid Plan of Care: Frequency: 1x follow up Duration: 1 week Goals: Prison: Ortiz Gorman will be able to consume [...] regarding dysphagia diagnosis, diet, and treatment recommendations. BOLT MAN will assist in establishing adequate oral hygiene for reduced risk of pulmonary compromise given dysphagia diagnosis. Outcome: Ongoing [facility]12-08-2023 Nurse Note* Nursing Notes - Sujatha Walker RN - 09/23/2023 5:07 AM EST Patient more alert than previous assessment, this nurse asked patient if he remembers any events that has happened in the last day, he said he does remember a tube being down his thoat, but does not remember why. Educated patient on what happened. [facility]12-08-2023 Nurse Note* Nursing Notes - Sujatha Walker RN - 09/23/2023 3:16 AM EST Patient able to tell this nurse it is 2022, still states he is at [facility], when reoriented that he is in [place] he states shoot I knew that . Patient pleasant but still restless in the bed, continues to roll in circles, and get up on hands and knees and rock back and forth. [facility]12-08-2023 Nurse Note* Nursing Notes - Sujatha Walker RN - 09/23/2023 2:35 AM EST Patient had episode of bowel incontinence. Patient cleaned, and placed in a brief, linens changed as well. [facility]12-07-2023 Nurse Note* Nursing Notes - Sujatha Walker RN - 09/22/2023 11:30 PM EST Patient continues to pull lines and lead at this time. Patient pulled IV out. This nurse placed newiv in left hand at this time. [facility]12-07-2023 Nurse Note* Nursing Notes - Sujatha Walker RN - 09/22/2023 8:30 PM EST Patient continues to roll around in bed, and get on his hands and knees in the bed. This nurse redirected patient at this time. [facility]12-07-2023 Nurse Note* Nursing Notes - Sujatha Walker RN - 09/22/2023 7:35 PM EST Patient calm, but remains confused at this time. Stated he is at [facility], the year is 2002, and Duran is the president. Redirected patient at this time. [facility]12-07-2023 Nurse Note* Nursing Notes - Jennifer [...] temp on temporal thermometer. Jennifer Lopez RN [facility]12-07-2023 Nurse Note* Nursing Notes - Jennifer [...] placement at this time. Jennifer Lopez RN [facility]12-07-2023 Nurse Note* Nursing Notes - Jennifer [...] position in the bed. Jennifer Lopez RN [facility]12-07-2023 Nurse Note* Nursing Notes - Jennifer Lopez RN - 09/22/2023 3:07 PM EST Delia dupont MD. Patient going to MRI. Neuro in to see. Jennifer Lopez RN [facility]12-07-2023 Nurse Note* Nursing Notes - Jennifer Lopez RN - 09/22/2023 2:17 PM EST Patient still drowsy, wakes for a brief moment, will open eyes and look at you but will shake his head no to any question asked him. Son's updated on plan of care for patient. Jennifer Lopez RN [facility]12-07-[facility] Nurse Note* Nursing Notes - Jennifer Lopez RN - 09/22/2023 1:56 PM EST Patient was extubated at 1340, patient is drowsy but vitals are stable. Neurology consult made. RSVswab done and sent to lab. Son's at bedside. Jennifer Lopez RN [facility]12-07-[facility]23 Progress note* Therapy Note - Salazar Holley RRT - 09/22/2023 1:36 PM EST Patient extubated and placed on 2LPM nasal cannula. [facility]12[facility]07[facility] Consult note* RODRIGUEZ Serrano - 09/22/2023 1:28 PM ESTAssociated Order(s): IP CONSULT TO NEUROLOGY Neurology Inpatient Consult (Video) [facility] 09/22/2023 Patient: Ortiz Gorman Date of : 1975 (47 y.o.) Referring Provider: Refer to consult order in electronic medical record PCP: Vincent Winters ASSESSMENT: Principal Diagnosis: Acute respiratory failure Active Pertinent Problems and Diagnoses Present on Admission: Acute respiratory failure Acute delirium Polysubstance use disorder Renal insufficiency Additional Active Pertinent Problems and Diagnoses No problems updated. 47 y.o. male presented to [facility] on 09/21/2023 with AMS PLAN: Altered mentation- [...] & GROSS MOTOR: Abnormal Movements: None Coordination Wvptfs-ye-Znpd: Normal Coordination Blab-Fgel-Jdpf: Normal- requires demonstration Drift: None Tone: Normal Bulk: Normal MUSCLE STRENGTH: Hand grasp equal bilaterally. Able to overcome antigravity and maintain. SENSATION: Fine Touch: Normal Patient verbally consents to the submissions of a Video health visit, patient is aware of the risks, benefits, and possible coinsurance/copay cost. Video was conducted by the provider in the office: [address] [place] [address] and the patient offsite: [facility] [place] [facility] Time both providers spent in medical discussion with patient 72 minutes Aracely Richard APRN-EXCELLENCE SPECIALIST [place] Associated attestation - Cecil Yu MD - [...] assessment and plan and agree with the EXCELLENCE SPECIALIST findings and plan of care as documented. [...] Portions of this chart were created using [email or web address] electronic dictation. Please excuse any typographical or grammatical errors contained herein as a result. [facility] [id number] Consult note* Aracely Richard APRN-EXCELLENCE SPECIALIST - 09/22/2023 1:28 PM ESTAssociated Order(s): IP CONSULT TO NEUROLOGY Neurology Inpatient Consult (Video) [facility] 09/22/2023 Patient: Ortiz Gorman Date of : 1975 (47 y.o.) Referring Provider: Refer to consult order in electronic medical record PCP: Vincent Winters ASSESSMENT: Principal Diagnosis: Acute respiratory failure Active Pertinent Problems and Diagnoses Present on Admission: Acute respiratory failure Acute delirium Polysubstance use disorder Renal insufficiency Additional Active Pertinent Problems and Diagnoses No problems updated. 47 y.o. male presented to [facility] on 09/21/2023 with AMS PLAN: Altered mentation- [...] & GROSS MOTOR: Abnormal Movements: None Coordination Pyafvb-ao-Viuc: Normal Coordination Ytlr-Dnki-Kpbr: Normal- requires demonstration Drift: None Tone: Normal Bulk: Normal MUSCLE STRENGTH: Hand grasp equal bilaterally. Able to overcome antigravity and maintain. SENSATION: Fine Touch: Normal Patient verbally consents to the submissions of a Video health visit, patient is aware of the risks, benefits, and possible coinsurance/copay cost. Video was conducted by the provider in the office: [address] [place] [address] and the patient offsite: [facility] Time both providers spent in medical discussion with patient 72 minutes Aracely Richard APRN-[facility] Associated attestation - Cecil Yu MD [...] assessment and plan and agree with the [facility] findings and plan of care as [...] Portions of this chart were created using [email or web address] electronic dictation. Please excuse any typographical or grammatical errors contained herein as a result. documented in this encounterMercy [facility]12-07-[facility]23 Progress note* Therapy Note - Salazar Holley RRT - 09/22/2023 12:21 PM EST ABG results given to Dr. Bird. [facility] [id number] Progress note* Therapy Note - Salazar Holley RRT - 09/22/2023 12:[address] Bird called regrding abg results. No answer. Message left. [facility] [id number] Progress note* Therapy Note - Salazar Holley [...] was drawn. Patient remains in PS mode. [facility]12-07-2023 History and physical note* Ceicl Ivan, DIRECTOR OF COUNSELING-EXCELLENCE SPECIALIST - 09/22/2023 10:05 AM EST History and [...] Temp src Pulse Resp SpO2 Height Weight 09/22/23812 99/58 97.8 F (36.6 C) -- 67 [...] 148 -- (!) 87 % -- -- 09/22/23319 (!) 187/116 -- -- 134 -- -- -- -- 12/07/23 0310 181/84 -- -- 105 -- 100 [...] 09/21/2023 YELLOW APPEARANCE, URINE 09/21/2023 CLEAR Specific [place], Urine 09/21/2023 >1.030 (H) PH URINE 09/21/2023 [...] GLUCOSE, POINT OF CARE 09/21/2023 232 (H) Closet Builder 09/21/2023 206,283 MAGNESIUM 09/21/2023 2.0 GLUCOSE, POINT OF CARE 09/21/2023 158 (H) Closet Builder 09/21/2023 205,802 GLUCOSE, POINT OF CARE 09/22/2023 109 (H) Closet Builder 09/22/2023 206,346 GLUCOSE, POINT OF CARE 09/22/2023 95 Closet Builder 09/22/2023 205,802 WBC (WHITE BLOOD COUNT) 09/22/2023 [...] 99. GLUCOSE, POINT OF CARE 09/22/2023 80 Closet Builder 09/22/2023 206,124 MAGNESIUM 09/22/2023 2.0 Impression and [...] for Dr. Bird 16 minutes spent of EXCELLENCE SPECIALIST time including assessment, planning, and discussion with nursing staff and patient Please note Portions of this note utilized [email or web address] dictation software, please excuse any typographical or [...] the floor, including communicating with EDMD and APT time. Not including procedure time or overlap with other Provider's time. Contact me if you need any clarification. Karl Bird MD Please note: Portions of this note utilized [email or web address] dictation software, please excuse any typographical or grammatical errors. Which inadvertently, might change the meaning and understanding. [facility]12-07-2023 Evaluation + Plan note* Assessment & Plan Note - RODRIGUEZ Shepherd - 09/22/2023 10:05 AM ESTAssociated Problem(s): Polysubstance use disorder Positive for benzos and MDMA Complete cessation will be advised [facility]12-07-2023 History and physical note* RODRIGUEZ Shepherd - [...] 09/21/2023 YELLOW APPEARANCE, URINE 09/21/2023 CLEAR Specific [place], Urine 09/21/2023 >1.030 (H) PH URINE 09/21/2023 [...] GLUCOSE, POINT OF CARE 09/21/2023 232 (H) Closet Builder 09/21/2023 206,283 MAGNESIUM 09/21/2023 2.0 GLUCOSE, POINT OF CARE 09/21/2023 158 (H) Closet Builder 09/21/2023 205,802 GLUCOSE, POINT OF CARE 09/22/2023 109 (H) Closet Builder 09/22/2023 206,346 GLUCOSE, POINT OF CARE 09/22/2023 95 Closet Builder 09/22/2023 205,802 WBC (WHITE BLOOD COUNT) 09/22/2023 [...] 99. GLUCOSE, POINT OF CARE 09/22/2023 80 Closet Builder 09/22/2023 206,124 MAGNESIUM 09/22/2023 2.0 Impression and [...] Full Code GI/DVT Prophylaxis: Protonix/Lovenox Cecil Ivan, EXCELLENCE SPECIALIST completing HPI for Dr. Bird 16 minutes spent of EXCELLENCE SPECIALIST time including assessment, planning, and discussion with nursing staff and patient Please note Portions of this note utilized [email or web address] dictation software, please excuse any typographical or [...] Please note: Portions of this note utilized [email or web address] dictation software, please excuse any typographical or grammatical errors. Which inadvertently, might change the meaning and understanding. documented in this encounterMer[facility]12-[facility]23 Evaluation + Plan note * Assessment & Plan Note - RODRIGUEZ Shepherd - 09/22/2023 10:04 AM ESTAssociated Problem(s): Acute respiratory failure Patient without hypoxia - Intubated due to combativeness Attempt wean/extubate today CXR non-acute 02 per protocol, IS Routine aerosols [facility]12-07-2023 Evaluation + Plan note* Assessment & Plan Note - RODRIGUEZ Shepherd - 09/22/2023 10:04 AM ESTAssociated Problem(s): Acute delirium Secondary to drug effects CT head non-acute Supportive care [facility]12-07-2023 Nurse Note* Nursing Notes - Jennifer Lopez RN - 09/22/2023 7:56 AM EST Morning assessment completed, Patient at appropriate level of sedation. Resting comfortable in bed,eyes closed. Vitals stable. Patient's mother called in and update give. Morning Labs drawn. Jennifer Lopez RN [facility]12-07-[facility] Plan of care note* Plan of [...] discharge/transition of care. Outcome: Progressing Toward Goal [facility]-07-[facility] Nurse Note* Nursing Notes - Amna Irvin RN - 09/22/2023 5:15 AM EST Precedex drip running, working to turn propofol down to wean off and precedex up to help keep pt calm. [facility] [employer] [id number] Nurse Note* Nursing Notes - Amna Irvin RN - 09/22/2023 4:20 AM EST Pt finally relaxing and less agitated, will continue to monitor. [facility] [employer] [id number] Nurse Note* Nursing Notes - Amna Irvin RN - 09/22/2023 3:15 AM EST Staff x4 in room to help protect pt as he is restless and agitated, sit up in bed, Dr. Bird notified to verify earlier order to change to precedex and discontinue propofol, states to proceed with this as stated earlier. [facility] [id number] Nurse Note* Nursing Notes - Amna Irvin RN - 09/22/2023 2:45 AM EST Pt awakens suddenly and quickly becomes agitated, due to situation propofol increased to try to calm pt. [facility] [employer] [id number] Nurse Note* Nursing Notes - Amna Irvin RN - 09/22/2023 1:15 AM EST Sedation titrated down due to low BP, pt then becomes very agitated and combative, BP increases, propofol titrated back up and pt calms, Dr. Bird notified of this, orders received. [facility] [employer] [id number] Nurse Note* Nursing Notes - Amna Irvin RN - 09/21/2023 9:30 PM EST Attempt to place OG without success, and then attempt NG also without success, pt becomes agitated during this, propofol adjusted. [facility] [employer] [id number] Emergency department Note* Josie Hannah RN - 09/21/2023 9:24 PM EST Call to family to update on transferr to ICU. Call to Sherly Gentile @ [phone]. [facility]12-06-[facility] Emergency department Note* Josie Hannah RN - 09/21/2023 9:24 PM EST Call to family to update on transferr to ICU. Call to Sherly Gentile @ [phone]. * iSrena Hernandez RN - 09/21/2023 8:32 PM EST [...] 4:33 PM EST EMERGENCY DEPARTMENT REPORT [facility] ICU SERVICE DATE: 09/21/23 PCP: Vincent Winters [...] Patient admitted to the ICU under the asparagus buncher service for further evaluation and treatment. ORDERS/RESULTS: [...] CARE 232 (H) 70 - 100 MG/DL Closet Builder 206,[id number] ARTERIAL BLOOD GAS Result Value Ref [...] YELLOW YELLOW APPEARANCE, URINE CLEAR CLEAR Specific [place], Urine >1.030 (H) 1.010 - 1.025 PH [...] Portions of this chart were created using [email or web address] electronic dictation. Please excuse any typographical or [...] was unresponsive. Per ems documented in this [facility]12-06-2023 Nurse Note* Nursing Notes - Amna Irvin RN - 09/21/2023 9:00 PM EST On admission to [facility] ICU, from ED a dual RN initial assessment of skin condition was performed by Amna Irvin RN and Joseline Paez RN. Skin Assessment: Skin within defined limits:Yes Pt has some scabs and abrasions to bilateral shins. Derek Score: 12 LDA Added:No Amna Irvin RN [facility]12-06-2023 Nurse Note* Nursing Notes - Amna Irvin RN - 09/21/2023 8:45 PM EST Loop here as pt arrives to ICU, [facility]12-06-2023 Emergency department Note* Sirena Hernandez RN - 09/21/2023 8:32 PM EST This RN speaks with loop and gives them patient name. [facility]12-06-2023 Emergency department Note* Josie Hannah RN - 09/21/2023 7:00 PM EST Multiple attempts at OG/NG tube placement unsuccessful, Dr Beltran aware. [facility]12-06-2023 Emergency department Note* Sirena Hernandez RN - 09/21/2023 6:18 PM EST Multiple attempts to place OG and NG tube by this RN, Deanna Barbosa RN, and Martina OCONNELL. All attempts unsuccessful. Family is waiting room, Dr Beltran aware and states he will talk with family. [facility]12-06-2023 Emergency department Note* Sirena Hernandez RN - 09/21/2023 5:35 PM EST Attempting to place OG tube. Patient is agitated and pulling arms and kicking legs. Dr Beltran aware. Verbal order to place vecuronium. [facility]12-06-2023 Emergency department Note* Sirena Hernandez RN - 09/21/2023 4:53 PM EST Lab bedside [facility]12-06-2023 Emergency department Note* Sirena Hernandez RN - 09/21/2023 4:44 PM EST Patient has abrasions to bilateral shins. Blood on patients jeans. [facility]12-06-2023 Progress note* Therapy Note - Cami Meyer RCP - 09/21/2023 4:36 PM EST Ventilator initiated at this time. Refer to flowsheets for settings and readings. [facility]12-06-2023 Physician Emergency department Note* Reginaldo Beltran MD - 09/21/2023 4:33 PM EST EMERGENCY DEPARTMENT REPORT [facility] ICU SERVICE DATE: 09/21/23 PCP: Vincent Winters [...] Patient admitted to the ICU under the asparagus buncher service for further evaluation and treatment. ORDERS/RESULTS: [...] CARE 232 (H) 70 - 100 MG/DL Closet Builder 206,283 ARTERIAL BLOOD GAS Result Value Ref [...] YELLOW YELLOW APPEARANCE, URINE CLEAR CLEAR Specific [place], Urine >1.030 (H) 1.010 - 1.025 PH [...] Portions of this chart were created using [email or web address] electronic dictation. Please excuse any typographical or grammatical errors contained herein. Reginaldo Beltran MD 09/21/232117 [facility]12-06-2023 Progress note* Therapy Note - Cami Meyer RCP - 09/21/2023 4:30 PM EST Pt intubated with size 8.0 ETT 26@ teeth by Dr Beltran. Positive color change on EtCO2 with equal breath sounds noted. Vocal cords visualized via GlideScope. SpO2 100% while being bagged with 100% FiO2. [facility]12-06-2023 Emergency department Note* Sirena Hernandez RN - 09/21/2023 4:25 PM EST BS 256. [facility]12-06-2023 Emergency department Note* Sirena Hernandez RN - 09/21/2023 4:22 PM EST Pt EMS patient was found at home by son and was unresponsive. Pt became combative en route to ED and was placed in soft restraints and given 7.5 mg versed. Pt arrives to ED unresponsive. [id number] Emergency department Note* Sirena Hernandez RN - 09/21/2023 4:[address] Beltran and respiratory bedside, [facility] [employer] [id number] Emergency department Note* Sirena Hernandez RN - 09/21/2023 4:21 PM EST Pt unresponsive. Per EMS, patient was found home by son and was unresponsive. Per ems [facility] [id number] Hospital Discharge instructions* Instructions* Lulú Bush DO - 04/20/2022 Start taking her blood pressure medication as prescribed. Please follow-up with your doctor in the next 2 to 3 days. * Attachments The following attachments cannot be sent through Care Everywhere. * HTN (Hypertension): Diuretics: General Info (Mauritian) [facility] Phone: evaluation + Plan note No data available for this section [facility] [place] Evaluation note* Diagnosis Acute nonintractable headache, unspecified headache type- Primary Elevated blood pressure reading Elevated blood pressure reading without diagnosis of hypertension documented in this encounter [employer] Phone: evaluation note* Diagnosis Essential hypertension- Primary Unspecified essential hypertension Acute headache, unspecified headache type documented in this encounter [employer] Phone: evalusjtay note* Diagnosis Acute respiratory failure- Primary Altered mental status, unspecified altered mental status type Hypertensive emergency Unspecified essential hypertension Acute delirium Other alteration of consciousness Polysubstance use disorder Renal insufficiency Unspecified disorder of kidney and ureter Type 2 Diabetes (A1C > 6.49%) [facility] Diagnosis Hypertensive encephalopathy- Primary Hypertensive emergency Unspecified essential hypertension documented in this encounter [facility] note* Diagnosis Hypertensive encephalopathy- Primary Central apnea [...] Central apnea Apnea documented in this encounter [facility] note* Diagnosis Hypertensive encephalopathy- Primary Diabetic ketoacidosis [...] hazards to health documented in this encounter [facility] note* Diagnosis DKA, type 2, not at [...] mellitus (HCC) documented in this encounter [facility] Discharge instructions* Instructions* Cheng Lira [...] through Care Everywhere. * Blood Pressure: Elevated (Mauritian) * Headache (Mauritian) [facility] Work Phone: Hospital Discharge instructions No data available for this section [facility] [employer] Progress note No data available for this section [facility] Reason for referral (narrative)* (Routine) Specialty Diagnoses / Procedures Referred By Contac t Referred To Contact [facility] [place] [facility] [address] [place] [address] Referral ID Status Reason Start Date Expiration Date Visits Re quested Visits Authorized * Unlisted Procedure Code (Routine) - New Request Specialty Diagnoses / Procedures Referred By Contac t Referred To Contact Procedures INPATIENT ADMISSION NOTIFICATION Karl Bird MD [address] [place] [address] Dr [place], [place]EN[place] [address] Referral ID Status Reason Start Date Expiration Date V isits Requested Visits Authorized [id number] New Request 09/21/2023 10/15/2024 1 1 * (Routine) Specialty Diagnoses / Procedures Referred By Contac t Referred To Contact [facility] [place] [facility] [address] [place] [address] Referral ID Status Reason Start Date Expiration Date Visits Re quested Visits Authorized [facility] Advance Directives No Advanced Directives Records [...] Documents on File Type Date 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 ACP-Advance Directive 01/25/2024 11:19 AM Date Activated Date Inactivated Comments 01/19/2024 3:59 AM 01/22/2024 8:24 PM Date Activated Date Inactivated Comments 10/27/2021 3:33 PM 11/02/2021 6:24 PM Healthcare Agents on File Name Relationship Healthcare Agent Relationshi p Communication Shane Z Child Primary Decision Maker Trent Romero Child Secondary Decision Maker Documents on File Type Date Recorded 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 ACP-Advance Directive 01/25/2024 11:19 AM [...] Shane Z Child Primary Decision Maker Trent Z Child Secondary Decision Maker Summary Purpose Family History No Family History Records FoundNo Family History Records FoundNo Family History Records Found No data available for this section No Family History Records FoundNo Family History Records FoundNo Family History Records FoundNo Family History Records Found Reason for Referral Specialty Diagnoses / Procedures Referred By Sergei barbosa Referred To Contact Radiology Diagnoses Abnormal finding on MRI of brain Procedures MRI Brain W WO Contrast Marce Restrepo, DIRECTOR OF COUNSELING - EXCELLENCE SPECIALIST [address] [address] Referral ID Status Reason Start Date Expiration Date Visits Re quested Visits Authorized [id number] Open 11/02/2024 11/02/2025 1 1 Additional Source Comments Reason for Visit (unrecogniz ed section and content) Reason Comments Headache Pt presents to the e mergecy department with complaint of 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 Pt does have a history of neuropathy and HTN Reason Comments Other Unresponsive. Snorin g respirations and periods of apnea Specialty Diagnoses / Procedures Referred By Sergei barbosa Referred To Contact Diagnoses Acute respiratory failure Hypertensive emergency Altered mental status, unspecified altered mental status type Karl Bird MD [address] [place] [address] [facility] Referral ID Status Reason Start Date Expiration Date Visits Re quested Visits Authorized [id number] 1 1 Reason Comments Aphasia Headache Pt arrives to ED wit h slurred speech and headache weakness on left side. LKW appx 2129. Specialty Diagnoses / Procedures Referred By Sergei barbosa Referred To Contact Diagnoses Hypertensive encephalopathy Hypertensive emergency Hypertensive Emergency Sarmad Daly MD [address] [facility] [address] [place] [address] [facility] [address] [place] [address] Referral ID Status Reason Start Date Expiration Date Visits Re quested Visits Authorized [id number] 1 1 Reason Comments Altered Mental Status Patient known diab etic, found by family this am on floor. Last known well was 830 PM last night. Specialty Diagnoses / Procedures Referred By Sergei barbosa Referred To Contact Diagnoses DKA, type 2, not at goal (HCC) DKA, ARF Stanley Mckenzie MD [address] [facility] [address] [place] [address] [facility] [address] [place] [address] Referral ID Status Reason Start Date Expiration Date Visits Re quested Visits Authorized [id number] 1 1 Scheduled Active and Recently Administ ered Medications (unrecognized section and content) Medication Order 04/03/2022 04/04/2022 04/05/2022 0.9 % sodium chloride bolus (COMPLETED) 1,000 mL (11.6 mL/kg), IntraVENous, at 1,000 mL/hr, Administer over 1 Hours, ONCE, On 04/04/22 at 2215, For 1 dose 221 (New Bag - Provider: Josie Donovan, KOURTNEY)2353 (Stopped - Provider: Brenda Bell, KOURTNEY) acetaminophen (TYLENOL) tablet 1,000 mg (COMPLETED) 1,000 [...] 650 mg, Oral, ONCE, 1 dose, On 04/19/22 at 2230, Maximum dose of acetaminophen is 4000 mg from all sources in 24 hours. 2308 (Given - Provider: Nini Miles RN) hydroCHLOROthiazide (HYDRODIURIL) tablet 25 mg (COMPLETED) 25 mg, Oral, ONCE, 1 dose, On 04/19/22 at 2215 2307 (Given - Provider: Nini [...] 0605 ($$New Bag$$ - Provider: Sujatha Walker, KOURTNEY)1419 (Stopped - Provider: Natalio Naranjo RN) albumin human 25 % injection 25 g () 25 g, Intravenous, Administer over 60 Minutes, EVERY 1 HOUR, 2 doses, First dose on Roz 09/22/23 at 1100, Last dose on Roz 09/22/23 at 1200, At [facility], in emergencies, administer as rapidly as necessary to improve clinical conditions. Rate of infusion is based on dose: 12.5g given over 30min, 25g given over 60min, 50g given over 120min., Indications: Fluid Resuscitation 1214 ($$New Bag$$ - Provider: Jennifer Lopez RN)1346 (Canceled Entry - Provider: Jennifer Lopez RN)212 (Stopped - Provider: Sujatha Walker RN) Atorvastatin [...] ($$New Bag$$ - Provider: Sujatha Walker RN) 1419 (Stopped - Provider: Natalio Naranjo RN) Dextrose [...] Lopez RN) 0847 (Given - Provider: Natalio Naranjo, KOURTNEY) 0940 (Given - Provider: Eveline Elias LPN) [...] to the hypoglycemia management protocol on Ellucid: F-SR-Funaurbucizk Management Protocol Haloperidol lactate (HALDOL) injection 5 [...] 2117 (Given - Provider: Toan Calvin RN) 09 (Given - Provider: Eveline Elias LPN)2099 (Canceled [...] see dec) 0940 (Given - Provider: Eveline Elias LPN) [...] Starting on Roz 09/22/23 at 0345, Until 09/23/23 at 0823, Initiate infusion at 0.2 mcg/kg/hr. [...] Lopez RN)2255 ($$New Bag$$ - Provider: Sujatha Walker, [...] decreased BP)0025 (Rate/Dose Change - Provider: Amna Irvin, RN)0030 (Rate/Dose Change - Provider: Amna Irvin, [...] Irvin, RN)0155 (Rate/Dose Change - Provider: Amna Irvin RN)0245 (Rate/Dose Change - Provider: Amna Irvin RN)0250 (Rate/Dose Change - Provider: Amna Irvin, RN)0255 (Rate/Dose Change - Provider: Amna Irvin, RN)0259 (Rate/Dose Change - Provider: Amna Irvin, RN)0300 ($$New Bag$$ - Provider: Amna Irvin RN)0305 (Rate/Dose Change - Provider: Amna Irvin RN)0310 (Rate/Dose Change - Provider: Amna Irvin, RN)0315 (Rate/Dose Change - Provider: Amna Irvin, RN)0515 (Rate/Dose Change - Provider: Amna Irvin RN)0525 (Rate/Dose Change - Provider: Amna Irvin RN)0530 (Rate/Dose Change - Provider: Amna Irvin RN)0535 (Rate/Dose Change - Provider: Amna Irvin RN)0540 (Rate/Dose Change - Provider: Amna Irvin RN)0550 (Rate/Dose Change - Provider: Amna Irvin RN)0600 (Rate/Dose Change - Provider: Amna Irvin, RN)0615 (Rate/Dose Change - Provider: Amna Irvin, KOURTNEY)0630 (Stopped - Provider: Amna Irvin RN) Sodium chloride 0.9% IV solution () Intravenous, at 125 mL/hr, CONTINUOUS, Starting on Tue09/21/23 at 1845, Until Roz 09/22/23 at 0644 0437 (Rate/Dose Verify - Provider: Amna Irvin RN)2127 (Stopped - Provider: Sujatha Walker, RN) Sodium chloride 0.9% IV solution (CANCELED) Intravenous, [...] MEALS & AT BEDTIME, First occurrence on Tue09/22/23 at 1530, Until Specified And Glucose (POC device) (CANCELED) Routine, ONE TIME, On Roz 09/22/23 at 1300, For 1 occurrence
For all Blood Glucose LESS THAN 70 mg/dL, recheck 20 min after treatment then notify physician. And glucose chewable tablet CHEW 16-32 gJump to med 16-32 g (4-8 tablet), Oral, SEE ADMIN INSTRUCTIONS, Starting on Roz 09/22/23 at 1259, Until 09/24/23 at 2159
If patient is alert and able to [...] refer to the hypoglycemia management protocol on Ell: B-GZ-Ythcbcclnxuv Management Protocol
And Dextrose 10% IV solution 250 mLJump to med 250 mL, Intravenous, at 999 mL/hr, SEE ADMIN INSTRUCTIONS, Starting on Roz 09/22/23 at 1259, Until 09/24/23 at 2159
Give Dextrose 10% 250 mL IV x [...] at 1300, Until Specified
Who to Notify: CLERK CHECKER/Physician
For all Blood Glucose LESS THAN 70 mg/dl, or greater than 400 mg/dl notify CLERK CHECKER/Physician Scheduled Medication Order 01/17/2024 01/18/2024 01/19/2024 labetalol (NORMODYNE;TRANDATE) injection 20 mg (COMPLETED) 20 mg, IntraVENous, ONCE, 1 dose, On Tue01/18/24 at 3039 6424 (Given - Provider: Renetta De La Fuente [...] sodium chloride 0.9 % 250 mL infusion (Pgur9Zrm) 2.5-15 mg/hr (25-150 mL/hr), IntraVENous, CONTINUOUS, Starting [...] be used to maintain goal. Use 20mm [id number] adapter. Preparation Instructions: Attach medication vial to one 20mm [id number] adapter. Darvin fluid bag with adaptor, mix, [...] Other, Other Abx Indication: concern for meningitis 033 (New Bag - Provider: Heydi Johnson RN)0339 (Rate/Dose Verify - Provider: Heydi Johnson, RN)0434 (Stopped - Provider: Heydi Johnson, RN)0435 (Stopped - Provider: Heydi Johnson, RN) [...] of orthostatic hypotension 1725 (Given - Provider: Rsahid Booth, KOURTNEY) 0815 (Given - Provider: Sarthak [...] 1 mg, Oral, DAILY, First dose on 01/21/24 [...] 1145 0833 (New Bag - Provider: Rashid Booth RN)0903 (Stopped - Provider: Rashid Booth RN) [...] Rachael Burns DO)1404 (Given - Provider: Rashid Booth RN)2134 (Given - Provider: Heydi Johnson RN) 0530 (Given - Provider: Heydi Johnson RN)1522 (Given - Provider: Sarthak Sepulveda, RN)2224 (Given - Provider: Jasmin Maldonado, RN) 0619 (Given - Provider: Jasmin Maldonado, RN)1339 (Not Given - Provider: Hazel Bowen, KOURTNEY - Reason: Patient/family refused)2200 (Due) insulin glargine [...] dose on Tue01/21/24 at 0100, Until Discontinued 0045 (Given - Provider: Heydi Johnson RN) insulin lispro (HUMALOG) injection vial 0-16 Units [...] Sepulveda, KOURTNEY)1218 (Given - Provider: Sarthak Sepulveda, KOURTNEY)1634 (Given - Provider: Sarthak Sepulveda, KOURTNEY) 0804 (Not Given - Provider: Hazel Bowen, KOURTNEY - Reason: Order parameters not met)1239 (Given [...] RN - Reason: Order parameters not met) 2099 (Due) labetalol (NORMODYNE;TRANDATE) injection 10 mg (COMPLETED) [...] Oral, DAILY BEFORE BREAKFAST, First dose on Tue01/22/24 at 0700, Until Discontinued, Do not crush or break. 0619 (Given - Provider: Jasmin Maldonado RN) sodium chloride flush 0.9 % injection 5-40 mL 5-40 mL, IntraVENous, EVERY 12 HOURS SCHEDULED (2 times per day), First dose on Tue01/19/24 at 0900, Until Discontinued, For Line Patency: [...] RN) 0814 (Given - Provider: Sarthak Sepulveda, RN)202 (Given - Provider: Anjana Donovan RN) 1014 (Given - Provider: Hazel Boewn, KOURTNEY)2100 (Due) thiamine tablet 100 mg 100 mg, Oral, DAILY, First dose on Tue01/21/24 at 1215, Until Discontinued 1218 (Given - Provider: Sarthak Sepulveda RN) 0842 (Given - Provider: Hazel Bowen, KOURTNEY) [...] Sepulveda RN)0905 (Rate/Dose Change - Provider: Sarthak Sepulveda RN)1019 (Rate/Dose Verify - Provider: Sarthak Sepulveda, RN)1105 (Rate/Dose Change - Provider: Sarthak Sepulveda RN)1106 (Rate/Dose Change - Provider: Sarthak Sepulveda, [...] Booth RN)1010 (Rate/Dose Change - Provider: Rashid Booth, RN)1124 (Rate/Dose Change - Provider: Rashid Booth, RN)1233 (Rate/Dose Change - Provider: Rashid Booth, RN)1459 (Rate/Dose Change - Provider: Rashid Booth, RN)1606 (Stopped - Provider: Rashid Booth RN) [...] Johnson RN)0645 (Rate/Dose Change - Provider: Heydi Johnson, KOURTNEY)0723 (Handoff - Provider: Heydi Johnson RN)0815 (Rate/Dose [...] Heydi Johnson RN)0812 (Paused - Provider: Rashid Booth, RN)1117 (Rate/Dose Change - Provider: Rashid Booth RN)1118 (New Bag - Provider: Rashid Booth RN)1244 (Rate/Dose Change - Provider: Rashid Booth RN)1247 (Rate/Dose Change - Provider: Rashid Booth, RN)1323 (Stopped - Provider: Rashid Booth RN) [...] Booth RN)0733 (Rate/Dose Change - Provider: Rashid Booth, RN)0833 (Rate/Dose Change - Provider: Rashid Booth, RN)0833 (Rate/Dose Change - Provider: Rashid Booth, RN)0835 (New Bag - Provider: Rashid Booth [...] patient NOT ALERT or NPO, Starting on Tue01/19/24 at 0410, Repeat blood glucose in 15 [...] 2013 (Given - Provider: Heydi Johnson, RN) 0230 (Given - Provider: Heydi Johnson, RN)1312 (Given - Provider: Lakeshia Brown RN - Comment: SBP 181)2013 (Given - Provider: Anjana Donovan, RN) 0657 (Given - Provider: Jasmin Maldonado, KOURTNEY) LORazepam [...] Tue01/19/24 at 0716, Until Discontinued, For alcohol withdrawal., For CIWA score 8 to 10. Reassess CIWA one hour after each dose of medication and as needed. LORazepam (ATIVAN) tablet 2 mg(Linked Group 4) 2 mg, Oral, EVERY 1 HOUR PRN (WITHDRAWAL), Starting on Tue01/19/24 at 0716, Until Discontinued, For alcohol withdrawal., [...] 0343, Sleep 0307 (Given - Provider: Jasmin Maldonado RN) melatonin tablet 5 mg 5 mg, [...] 1254 (See Alternative - Provider: Rashid Booth, KOURTNEY) polyethylene glycol (GLYCOLAX) packet 17 g 17 [...] Rashid Booth, KOURTNEY)1150 (Stopped - Provider: Rashid Booth RN) potassium [...] Johnson RN)2112 (Rate/Dose Verify - Provider: Heydi Johnson RN)2323 (Stopped - Provider: Heydi Johnson RN)2327 (Stopped - Provider: Heydi Johnson RN) [...] Oral, EVERY 8 HOURS PRN, Starting on Tue01/19/24 at 0353, Until Discontinued, Nausea, Vomiting Or [...] sodium chloride 0.9 % 250 mL infusion (Kfuo8Pri) 2.5-15 mg/hr (25-150 mL/hr), IntraVENous, CONTINUOUS, Starting [...] used to maintain goal. Use 20mm (Blue) Gapz2Toj Adapter Preparation instructions: Attach medication vial to one 20mm (Blue) [id number] adapter. Darvin fluid bag with adapter, mix, [...] Until Discontinued 2131 (Given - Provider: Coretta Mitchell RN) 2152 (Given - Provider: Coretta Mitchell RN) 2009 (Given - Provider: Delmy Anderson RN) carvedilol (COREG) tablet 25 mg 25 mg, Oral, 2 TIMES DAILY WITH MEALS, First dose (after last modification) on Tue09/29/24 at 1700, Until Discontinued, Administer with food to minimize the risk of orthostatic hypotension 0845 (Given - Provider: Archana Kenyon RN)1626 (Given - Provider: Archana Kenyon RN) 0910 (Given - Provider: Gabriela Rivas RN)1711 (Given - Provider: Gabriela Rivas, KOURTNEY) 0817 (Given - Provider: Gabriela Rivas, KOURTNEY)1628 (Given - Provider: Gabriela Rivas RN) heparin (porcine) injection 5,000 Units 5,000 Units, SubCUTAneous, EVERY 8 HOURS SCHEDULED (3 times per day), First dose on Tue09/30/24 at 0600, Until Discontinued 0650 (Given - Provider: Delmy Anderson, KOURTNEY)0842 (Held by provider - Provider: Mary Lou Tom, - Reason: Other)1400 (Automatically Held - Provider: Mary Lou Tom DO)1415 (Unheld by provider - Provider: Mary Lou Tom DO)2147 (Given - Provider: Coretta Mitchell RN) 0630 (Not Given - Provider: Coretta Mitchell RN - Reason: Other - Comment: Plan for Loop recorder implantation. CLERK CHECKER aware & ok to hold)1400 (Given - [...] Reason: Order parameters not met - Comment: [id number] (Not Given - Provider: Gabriela Rivas RN - Reason: Order parameters not met)1711 (Given - Provider: Gabriela Rivas RN)2128 (Not Given - Provider: Coretta A Mitchell, RN - Reason: Order parameters not met) 06 (Given - Provider: Coretta Mitchell RN - Comment: [id number] (Given - Provider: Gabriela Rivas RN)162 (Given - Provider: Gabriela Rivas RN)2014 (Given - Provider: Delmy Anderson, KOURTNEY) levETIRAcetam (KEPPRA) injection 1,000 mg (CANCELED) 1,000 mg, IntraVENous, 2 TIMES DAILY, First dose on Tue10/04/24 at 0900, Until Discontinued, Administer IVP over 2-5 minutes. 0853 (Given - Provider: Archana Kenyon RN)2129 (Given - Provider: Coretta Mitchell RN) 09 (Given - Provider: Gabriela Rivas RN)2153 (Given - Provider: Coretta Mitchell RN) 08 (Not Given - Provider: Gabriela Rivas RN - Reason: Loss of IV access)0838 (Not Given - Provider: Gabriela Rivas RN - Reason: Loss of IV access) levETIRAcetam (KEPPRA) tablet 1,000 mg 1,000 mg, Oral, 2 TIMES DAILY, First dose on Tue10/06/24 at 0915, Until Discontinued, Do not crush or chew. 09 (Given - Provider: Gabriela Rivas RN)2009 (Given - Provider: Delmy Anderson RN) levoFLOXacin (LEVAQUIN) tablet 250 mg (COMPLETED) 250 [...] 0930, Until Discontinued 0845 (Given - Provider: Archnaa Kenyon RN) losartan (COZAAR) tablet 25 mg (COMPLETED) 25 [...] powder. 0849 (Given - Provider: Archana Kenyon RN)2132 (Given - Provider: Coretta Mitchell RN) 09 (Given - Provider: Gabriela Rivas RN)2152 (Given - Provider: Coretta Mitchell RN) 0816 (Given - Provider: Gabriela Rivas RN)1945 (Not Given - Provider: Delmy Anderson RN [...] mL/lumen 0849 (Given - Provider: Archana Kenyon RN)2131 (Given - Provider: Coretta Mitchell RN) 113 (Given - Provider: Gabriela Rivas RN)2153 (Given - Provider: Coretta Mitchell RN) 0818 (Given - Provider: Gabriela Rivas RN)1945 (Not Given - Provider: Delmy Anderson RN [...] mg from all sources in 24 hours. cxnugisl-vmoijprekf-aswtvkio ne (CETACAINE) spray (CANCELED) PRN, Starting on [...] for injection by adding 1 mL of gate watch-supplied sterile diluent or sterile water for injection to a vial containing 1 mg of the drug, to provide solutions containing 1 mg/mL. Shake vial gently to dissolve. glucose chewable tablet 16 g 16 g (4 tablet), Oral, PRN, Starting on 09/29/24 at 0739, Until [...] Care Teams (unrecognized sec tion and content) Trade Marker Relationship Specialty Start Date End Date Vincent Winters MD [address] [place] [address] PCP - General Family Medicine 10/27/21 Trade Marker Relationship Specialty Start Date End Date Vincent Winters MD [address] [place], [place] [id number] PCP - General Family Medicine 10/27/21 Trade Marker Relationship Specialty Start Date End Date Vincent Winters MD [address] [place] [id number] PCP - General Family Medicine 09/21/23 Trade Marker Relationship Specialty Start Date End Date Vincent Winters MD [address] [place] [id number] PCP - General Family Medicine 10/27/21 Trade Marker Relationship Specialty Start Date End Date Vincent Winters MD [address] [place] [address] PCP - General Family Medicine 10/27/21 Trade Marker Relationship Specialty Start Date End Date Vincent Winters MD [address] [place] [address] PCP - General Family Medicine 10/27/21 Trade Marker Relationship Specialty Start Date End Date Vincent Winters MD [address] [place] [address] PCP - General Family Medicine 10/27/21 Trade Marker Relationship Specialty Start Date End Date Vincent Winters MD [address] [place] [address] PCP - General Family Medicine 10/27/21 Trade Marker Relationship Specialty Start Date End Date Vincent Winters MD [address] [place] [address] PCP - General Family Medicine 10/27/21 Trade Marker Relationship Specialty Start Date End Date Vincent Winters MD [address] [place] [address] PCP - General Family Medicine 10/27/21 Ordered [...] and content) DATE CREATED AUTHOR 01/27/2023 [facility] DATE CREATED AUTHOR AUTHOR'S ORGANIZ ATION 08/14/2023 [facility] DATE CREATED AUTHOR AUTHOR'S ORGANIZ ATION 10/23/2023 [facility] DATE CREATED AUTHOR AUTHOR'S ORGANIZ ATION 03/01/2024 [facility] DATE CREATED AUTHOR AUTHOR'S ORGANIZ ATION 03/02/2024 [facility] DATE CREATED AUTHOR AUTHOR'S ORGANIZ ATION 12/07/2024 [facility] DATE CREATED AUTHOR AUTHOR'S ORGANIZ ATION 12/12/2024 [facility] FOR RECORDS PERTAINING TO PATIENTS WHO [...] BE BASED ON THE PRIMARY CLINICAL RECORDS. [employer] provides no warranty or guarantee of the accuracy or completeness of information in this document.
[2025-01-14 23:14] LABS: Glucometer 417 mg/dL (74-106)
--- NOTE | 2025-01-14 23:26 | ECG_ITS ---
[facility] Test Date: 2025-01-14 Pat Name: JOSÉ LUIS GORMAN Department: Room: - Gender: Male Terrazzo Layer: : 1975 Requested By: [id number] Order Number: [id number] Reading MD: GILLES MANCIA M.D. Measurements Intervals [place] Rate: 83 P: 67 WY: 178 QRS: 50 QRSD: 90 T: 42 QT: 384 QTc: 424 Interpretive Statements 1100 Sinus rhythm 9110 normal ECG Compared to ECG 11/04/2024 18:41:35 No significant changes Electronically Signed On 01-15-2025 20:08:51 EDT by GILLES MANCIA M.D.
[2025-01-14 23:42] LABS: Mean Corpuscular HGB Conc 34.2 g/dL (29.9-35.2); Mean Corpuscular Hemoglobin 29.2 pg (25.9-34.0); Mean Corpuscular Volume 85.4 fL (80.0-94.0); Mean Platelet Volume 10.4 fL (9.5-13.5); Platelet Count 216 10^3/uL (150-450); Red Blood Count 2.74 10^6/uL (4.70-6.10); Red Cell Distribution Width 13.1 % (11.0-15.0); White Blood Count 25.3 10^3/uL (4.0-11.0)
[2025-01-14 23:44] LABS: Hematocrit 23.4 % (42.0-54.0)
[2025-01-14] MEDS: ACETAMINOPHEN 325 MG TABLET 650 MG PO (23:49)
[2025-01-14] MEDS: ONDANSETRON PF 4 MG/2 ML VIAL IV (23:57)
[2025-01-14 23:59] LABS: Alanine Aminotransferase 32 U/L (16-63); Albumin Globulin Ratio 0.6; Albumin Level 2.3 g/dL (3.4-5.0); Alkaline Phosphatase 146 U/L (46-116); Anion Gap 17.6; Aspartate Amino Transferase 69 U/L (15-37); BUN Creatinine Ratio 20.2; Bilirubin Total 0.6 mg/dL (0.2-1.0); Calcium 8.7 mg/dL (8.5-10.1); Carbon Dioxide 22.2 mmol/L (21.0-32.0); Chloride 93 mmol/L (98-107); Estimated GFR (African America 17 (>=60 mL/min/1.73m^2); Estimated GFR (Non-African Ame 14 (>=60 mL/min/1.73m^2); Glucose 397 mg/dL (74-106); Potassium 5.8 mmol/L (3.5-5.1); Sodium 127 mmol/L (136-145); Total Protein 6.3 g/dL (6.4-8.2)
[2025-01-15] VITALS (44 sets, daily range): BP systolic 115–147; BP diastolic 66–78; PULSE 67–82; TEMP 36.4–37.6; O2SAT 82–96; BMI 25.1
[2025-01-15 00:01] LABS: Segmented Neut Absolute Manual 24.28 10^3/uL (1.4-6.5)
[2025-01-15 00:02] LABS: Hypersegmented Neutrophils 1+; Lymphocytes Absolute Manual 0.25 10^3/uL (1.20-3.80); Metamyelocytes Absolute Manual 0.25; Toxic Granulation 4+
[2025-01-15 00:04] LABS: Acanthocytes 3+
[2025-01-15 00:05] LABS: Burr Cells 3+; Schistocytes 2+
[2025-01-15 00:06] LABS: Lactate/Lactic Acid 3.5 mmol/L (0.4-2.0)
[2025-01-15 00:26] LABS: ABG PCO2 35.2 mmHg (35.0-45.0); Allen Test POSITIVE (POSITIVE); Base Excess ABG -3.1 mmol/L (-2.0-2.0); HCO3 ABG 21.7 mmol/L (22.0-26.0); O2 Mode NASAL CANNULA; Oxygen Saturation ABG 94.5 %; PO2 ABG 71.4 mmHg (80.0-100.0); pH ABG 7.399 (7.350-7.450)
[2025-01-15 00:27] LABS: Liters per Minute 2; Puncture Site LEFT RADIAL
[2025-01-15] MEDS: VANCOMYCIN HCL 1,500 MG in 0.9 % SODIUM CHLORIDE 500 ML 250 MG IV (00:31)
[2025-01-15] MEDS: PIPERACILLIN SODIUM/TAZOBACTAM 3.375 GM in 0.9 % SODIUM CHLORIDE 50 ML IV (00:31)
[2025-01-15 00:37] LABS: Acetone NEGATIVE (NEGATIVE)
--- NOTE | 2025-01-15 00:41 | ED_ITS ---
HPI HPI - General Adult General Chief complaint: Neuro Symptoms/Deficit Stated complaint: SHAKING NECK PAIN Time Seen by Provider: 01/14/25 22:57 Source: patient and family Source information: pt's son drove him here Mode of arrival: Wheelchair History of Present Illness HPI narrative: This 49-year-old male with a history of diabetes, hypertension and kidney disease is brought to the emergency department by his son. The patient states he has not been taking his medications for approximately 1 week. He was supposed to see a craft recruiter earlier today because he has wounds on the bottom of both heels but did not go. He states he is having neck pain. Upon arrival he was noted to be febrile. He denies any headache. He has no neck stiffness. He denies any chest pain or shortness of breath. He states he has been having some diarrhea but not any vomiting. I reviewed his prior medical records. He was admitted in October for fluid overload/anasarca. He had chronic renal insufficiency at that time. After his fever was treated he was more alert and states that the reason he has sores on the bottom of his feet is because when his legs were so swollen he could not fit into his rubber boots that he wears in the barn so he bought himself a bigger pair of rubber boots but they were too big and his feet got shaved on the bottom of these big boots. 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) blood-glucose sensor (Dexcom G6 10/15/23 11/05/24 Sensor device) blood-glucose transmitter (Dexcom 10/15/23 11/05/24 G6 Transmitter device) pen needle, diabetic 31 gauge x 10/15/23 11/05/24 5/16 (Easy Comfort Pen [place]) aspirin 81 mg chewable tablet 1 tab PO DAILY 11/04/24 11/04/24 atorvastatin 40 mg tablet 40 mg PO DAILY 11/04/24 11/04/24 carvedilol 25 mg tablet 25 mg PO BID 11/04/24 11/04/24 insulin glargine 100 unit/mL (3 24 unit subcut QPM 11/04/24 11/04/24 mL) subcutaneous pen (Lantus Solostar U-100 Insulin) insulin lispro 100 unit/mL 1 sliding scale dose subcut TID 11/04/24 11/04/24 subcutaneous pen (Humalog KwikPen (U-100) Insulin) levetiracetam 500 mg tablet 1,000 mg PO BID 11/04/24 11/04/24 Previous Rx's ?Medication ?Instructions ?Recorded bumetanide 1 mg tablet 1 mg PO DAILY #30 tabs 11/07/24 bumetanide 1 mg tablet 1 mg PO DAILY #60 tabs 11/07/24 clonidine HCl 0.1 mg tablet 0.1 mg PO BID #60 tabs 11/07/24 clonidine HCl 0.1 mg tablet 0.1 mg PO Q12H #60 tabs 11/07/24 hydralazine 100 mg tablet 100 mg PO BID #60 tabs 11/07/24 hydralazine 100 mg tablet 100 mg PO BID #60 tabs 11/07/24 magnesium oxide 400 mg PO BID #60 caps 11/07/24 magnesium oxide 400 mg (241.3 mg 400 mg PO BID #60 tabs 11/07/24 magnesium) tablet Allergies Allergy/AdvReac Type Severity Reaction Status Date / Time levetiracetam (From [facility]) AdvReac Mild Drowsy Verified 01/14/25 23:32 Opioid HPI Opioid Management Most Recent Opioid Data: Last ORT Total Score 1 11/05/24 00:26 11/05/24 Last ORT Risk Category Low Risk 11/05/24 00:26 11/05/24 Review of Systems ROS Status of ROS 10 or more systems reviewed and unremark able except as noted in history and below [facility] Medical History (Updated 01/15/25 @ 03:02 by Michell Simpson MD) Hypoalbuminemia ?E88.09 - Other disorders of plasma-protein metabolism, not elsewhere classified (ICD-10) Hypertension ?I10 - Essential (primary) hypertension (ICD-10) Acute hyperkalemia ?E87.5 - Hyperkalemia (ICD-10) Acute kidney injury ?N17.9 - Acute kidney failure, unspecified (ICD-10) Anasarca ?R60.1 - Generalized edema (ICD-10) Type 2 diabetes mellitus with hyperglycemia ?E11.65 - Type 2 diabetes mellitus with hyperglycemia (ICD-10) Dyslipidemia ?E78.5 - Hyperlipidemia, unspecified (ICD-10) Benign essential hypertension ?I10 - Essential (primary) hypertension (ICD-10) Uncontrolled hypertension ?I10 - Essential (primary) hypertension (ICD-10) Infection of muscle of back ?M60.08 - Infective myositis, other site (ICD-10) Diabetes ?E11.9 - Type 2 diabetes mellitus without complications (ICD-10) Family History (Updated 11/05/24 @ 00:32 by Trinity Moore) Other Family history of diabetes mellitus Family history of hypertension Family history of stroke Social History (Updated 11/05/24 @ 00:35 by Trinity Moore) Within the past year, how often did you have a drink containing alcohol: monthly or less Within the past year, how many standard drinks containing alcohol did you have on a typical day: 1 or 2 Within the past year, how often did you have six or more drinks on one occasion: never Total score: 0 Score interpretation: A score less than 4 is consistent with normal alcohol consumption. Smoking status: Never smoker Do you use any of these nicotine containing products: smokeless tobacco Non-prescribed substance use: denies use Previous occupational history: [employer] Highest level of school completed/degree received: high school graduate Are you now , , , , never or living with a partner: In a typical week, how many times do you talk on the telephone with family, friends, or neighbors: twice per week How often do you get together with friends or relatives: once per week How often do you attend methodist or restorationist services: never Do you belong to any clubs or organizations such as methodist groups unions, fraternal or athletic groups, or school groups: no Total score: 1 Score interpretation: A score of less than or equal to 1 indicates the most socially isolated. Little interest or pleasure in doing things: not at all Feeling down, depressed, or hopeless: not at all Feel stressed/tense/nervous/anxious/difficulty sleeping: to some extent Life stressors: unknown source of stress Due to disability, difficulty making decisions: No Do you think of yourself as: straight/heterosexual Gender Identity: male Exam Narrative Exam Narrative: Vital signs and Nursing Notes reviewed: Patient is febrile with a normal pulse, blood pressure is mildly elevated 144/77 and he is moderately hypoxic with pulse ox of 92% on room air General: Pale, ill-appearing adult male, at times slow to respond but appropriate, no respiratory distress his speech is otherwise clear. HEENT: Normocephalic atraumatic, mucous membranes are dry, conjunctiva are pale, Neck: Supple, no meningeal signs, no anterior or posterior cervical lymphadenopathy Chest: Lungs are clear to auscultation with good air entry, there is no wheezing rhonchi or rales appreciated no accessory muscle use, patient is speaking in complete sentences-no chest wall tenderness to palpation CVS: Regular rate and rhythm S1-S2, no murmurs rubs or gallops, pulses are brisk and equal bilaterally ABD: Soft, nondistended, nontender, no rebound guarding or rigidity, bowel sounds are normal, no pulsatile masses appreciated Extremities: Moving all extremities, no lower extremity tenderness or swelling noted, negative Homans' sign, pulses are brisk and equal bilaterally, there is pitting edema to both lower legs with no calf swelling or tenderness. The bottom of both feet and the calcaneus area have large ulcers with blisters and missing skin. There is no drainage from these or crepitus appreciated. 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 Constitutional Vital Signs, click to edit/add: Last Vital Signs Temp 98.5 F 01/15/25 04:15 Pulse 73 01/15/25 04:00 Resp 17 01/15/25 04:00 BP 132/78 01/15/25 04:09 Pulse Ox 96 01/15/25 03:20 O2 Del Method Room Air 01/14/25 23:09 Course Vital Signs Vital signs: Vital Signs Temperature 101.9 F H 01/14/25 23:09 Pulse Rate 85 01/14/25 23:09 Respiratory Rate 22 H 01/14/25 23:09 Blood Pressure 144/77 H 01/14/25 23:09 Pulse Oximetry 92 L 01/14/25 23:09 Oxygen Delivery Method Room Air 01/14/25 23:09 Temperature 98.5 F 01/15/25 04:15 Pulse Rate 73 01/15/25 04:00 Respiratory Rate 17 01/15/25 04:00 Blood Pressure 132/78 01/15/25 04:09 Pulse Oximetry 96 01/15/25 03:20 Oxygen Delivery Method Room Air 01/14/25 23:09 Medical Decision Making [facility] Narrative Medical decision making narrative: This 49-year-old male with a history of diabetes, hypertension and kidney disease is brought to the emergency department by his son. The patient states for approximately 1 week he has not been taking his medications. He told his nurse that he ran out of his medications. The patient presents with a fever, altered mental status and ulcers on the bottom of both feet with some blisters as well. A septic workup was ordered on him including a CBC with differential, comprehensive metabolic profile, acetone, blood gas, lactic acid, 2 sets of blood cultures, troponin, chest x-ray and x-rays of both feet. His white count is markedly elevated 25. Hemoglobin is stable for him at 8. Sodium is low at 127. Potassium is mildly elevated at 5.8. There were no peaked T waves on his EKG. BUN is elevated at 49 and creatinine is 4.4. Lactic acid is elevated at 3.6. pH is 7.39 with a bicarb of 21.7. Acetone is negative. He is not in DKA. An IV was placed and he was initially treated with a liter of normal saline. 30 cc/kg of normal saline was initially ordered but then when I realized that he had recently been admitted for anasarca and fluid overload as well as his markedly decreased GFR he was given 1 L of saline and then 150 cc an hour of saline. He was given Tylenol for his fever and empirically treated for his foot infections with IV Zosyn and IV vancomycin. His glucose is elevated at 417 upon arrival. He was also given IV insulin for the hyperkalemia. X-ray of the chest shows mild pulmonary vascular congestion without focal infiltrate and x-rays of both feet show soft tissue swelling without acute osseous abnormality. Repeat lactic acid is 1.2. After the IV fluids and Tylenol he is much more alert and conversant. He initially had complained about neck pain and states that his neck was hurting because he was feeling hot at home and put a fan on and fell asleep and when he woke up his neck felt stiff. He is not having any headache or nuchal rigidity. Patient states he was supposed to see a craft recruiter and he had called yesterday but was unable to procure an appointment. He states that he has the ulcers on his feet because when his legs were swollen recently he could not get his feet into his rubber boots so he bought boots that were bigger and they rubbed on the bottom of his feet causing blisters and ultimately the infections that are present today with local blistering redness swelling and skin breakdown. There is no drainage to culture. He remains hemodynamically stable in the emergency department. Case was discussed with the hospitalist and he is accepted for admission. Medical Records Medical records reviewed: Yes I reviewed the patient's medical records Lab Data Lab results reviewed: Yes I reviewed the patient's lab results Labs: Lab Results 01/14/25 01/14/25 01/15/25 Range/Units 23:07 23:20 00:20 WBC 25.3 H (4.0-11.0) 10^3/uL RBC 2.74 L (4.70-6.10) 10^6/uL Hgb 8.0 L (14.0-18.0) g/dL Hct 23.4 L* (42.0-54.0) % MCV 85.4 (80.0-94.0) fL MCH 29.2 (25.9-34.0) pg MCHC 34.2 (29.9-35.2) g/dL RDW 13.1 (11.0-15.0) % Plt Count 216 (150-450) 10^3/uL MPV 10.4 (9.5-13.5) fL Seg Neuts % (Manual) 96.0 H (43.0-75.0) Band Neutrophils % 0.0 (0-5) % Lymphocytes % (Manual) 1.0 L (20.5-60.0) % Monocytes % (Manual) 2.0 (1.7-12.0) % Eosinophils % (Manual) 0.0 L (0.9-7.0) % Basophils % (Manual) 0.0 L (0.2-2.0) % Metamyelocytes % 1.0 Neutrophils # (Manual) 24.28 H (1.4-6.5) 10^3/uL Band Neutrophils # 0.0 (0.0-0.3) 10^3/uL Lymphocytes # (Manual) 0.25 L (1.20-3.80) 10^3/uL Monocytes # (Manual) 0.50 (0.30-0.80) 10^3/uL Eosinophils # (Manual) 0.00 (0.00-0.70) 10^3/uL Basophils # (Manual) 0.00 (0.00-0.10) 10^3/uL Metamyelocytes # 0.25 Hypersegmented Neuts 1+ Toxic Granulation 4+ Garvin Cells 3+ Acanthocytes (Spur) 3+ Schistocytes 2+ Puncture Site Left radial ABG pH 7.399 (7.350-7.450) ABG pCO2 35.2 (35.0-45.0) mmHg ABG pO2 71.4 L (80.0-100.0) mmHg ABG HCO3 21.7 L (22.0-26.0) mmol/L ABG O2 Saturation 94.5 % ABG Base Excess -3.1 L (-2.0-2.0) mmol/L Wes Test Positive (POSITIVE) O2 Liters/Min 2 Sodium 127 L (136-145) mmol/L Potassium 5.8 H (3.5-5.1) mmol/L Chloride 93 L (98-107) mmol/L Carbon Dioxide 22.2 (21.0-32.0) mmol/L Anion Gap 17.6 BUN 89.0 H* (7.0-18.0) mg/dL Creatinine 4.40 H (0.70-1.30) mg/dL Est GFR ( Amer) 17 L (>=60 mL/min/1.73m^2) Est GFR (Non-Af Amer) 14 L (>=60 mL/min/1.73m^2) BUN/Creatinine Ratio 20.2 Glucose 397 H (74-106) mg/dL Lactate 3.5 H* (0.4-2.0) mmol/L Calcium 8.7 (8.5-10.1) mg/dL Total Bilirubin 0.6 (0.2-1.0) mg/dL AST 69 H (15-37) U/L ALT 32 (16-63) U/L Alkaline Phosphatase 146 H (46-116) U/L Troponin I High Sens 23.6 (4.0-76.1) pg/mL Total Protein 6.3 L (6.4-8.2) g/dL Albumin 2.3 L (3.4-5.0) g/dL Globulin 4.0 g/dL Albumin/Globulin Ratio 0.6 Urine Color (YELLOW) Urine Clarity (CLEAR) Urine pH (5.0-9.0) Ur Specific [place] (1.005-1.025) Urine Protein (NEG/TRACE) mg/dL Urine Glucose (UA) (NEGATIVE) mg/dL Urine Ketones (NEGATIVE) mg/dL Urine Occult Blood (NEGATIVE) Urine Nitrite (NEGATIVE) Urine Bilirubin (NEGATIVE) Urine Urobilinogen (0.2-1.0) EU/dL Ur Leukocyte Esterase (NEGATIVE) Urine RBC (0-2) #/HPF Urine WBC (NONE SEEN) #/HPF Ur Squamous Epith Cells (NONE/RARE) #/LPF Urine Crystals (None Seen) #/HPF Amorphous Sediment Urine Bacteria (NONE SEEN) #/HPF Urine Casts (NONE SEEN) #/LPF Urine Mucus (NONE SEEN) Ur Culture Indicated? Acetone, Qual Negative (NEGATIVE) Influenza Type A Ag Influenza Type B Ag SARS-CoV-2 Ag (CV2AG) (NEGATIVE) POC Glucose 417 H (74-106) mg/dL Blood Type Antibody Screen 01/15/25 01/15/25 01/15/25 Range/Units 02:00 02:17 02:19 WBC (4.0-11.0) 10^3/uL RBC (4.70-6.10) 10^6/uL Hgb (14.0-18.0) g/dL Hct (42.0-54.0) % MCV (80.0-94.0) fL MCH (25.9-34.0) pg MCHC (29.9-35.2) g/dL RDW (11.0-15.0) % Plt Count (150-450) 10^3/uL MPV (9.5-13.5) fL Seg Neuts % (Manual) (43.0-75.0) Band Neutrophils % (0-5) % Lymphocytes % (Manual) (20.5-60.0) % Monocytes % (Manual) (1.7-12.0) % Eosinophils % (Manual) (0.9-7.0) % Basophils % (Manual) (0.2-2.0) % Metamyelocytes % Neutrophils # (Manual) (1.4-6.5) 10^3/uL Band Neutrophils # (0.0-0.3) 10^3/uL Lymphocytes # (Manual) (1.20-3.80) 10^3/uL Monocytes # (Manual) (0.30-0.80) 10^3/uL Eosinophils # (Manual) (0.00-0.70) 10^3/uL Basophils # (Manual) (0.00-0.10) 10^3/uL Metamyelocytes # Hypersegmented Neuts Toxic Granulation Garvin Cells Acanthocytes (Spur) Schistocytes Puncture Site ABG pH (7.350-7.450) ABG pCO2 (35.0-45.0) mmHg ABG pO2 (80.0-100.0) mmHg ABG HCO3 (22.0-26.0) mmol/L ABG O2 Saturation % ABG Base Excess (-2.0-2.0) mmol/L Wes Test (POSITIVE) O2 Liters/Min Sodium (136-145) mmol/L Potassium (3.5-5.1) mmol/L Chloride (98-107) mmol/L Carbon Dioxide (21.0-32.0) mmol/L Anion Gap BUN (7.0-18.0) mg/dL Creatinine (0.70-1.30) mg/dL Est GFR ( Amer) (>=60 mL/min/1.73m^2) Est GFR (Non-Af Amer) (>=60 mL/min/1.73m^2) BUN/Creatinine Ratio Glucose (74-106) mg/dL Lactate 1.2 (0.4-2.0) mmol/L Calcium (8.5-10.1) mg/dL Total Bilirubin (0.2-1.0) mg/dL AST (15-37) U/L ALT (16-63) U/L Alkaline Phosphatase (46-116) U/L Troponin I High Sens (4.0-76.1) pg/mL Total Protein (6.4-8.2) g/dL Albumin (3.4-5.0) g/dL Globulin g/dL Albumin/Globulin Ratio Urine Color Lt. yellow (YELLOW) Urine Clarity Clear (CLEAR) Urine pH 6.0 (5.0-9.0) Ur Specific [place] 1.025 (1.005-1.025) Urine Protein >=300 A (NEG/TRACE) mg/dL Urine Glucose (UA) >=1000 A (NEGATIVE) mg/dL Urine Ketones Negative (NEGATIVE) mg/dL Urine Occult Blood Moderate A (NEGATIVE) Urine Nitrite Negative (NEGATIVE) Urine Bilirubin Negative (NEGATIVE) Urine Urobilinogen 0.2 (0.2-1.0) EU/dL Ur Leukocyte Esterase Negative (NEGATIVE) Urine RBC 0-2 (0-2) #/HPF Urine WBC 0-2 A (NONE SEEN) #/HPF Ur Squamous Epith Cells None seen (NONE/RARE) #/LPF Urine Crystals Seen A (None Seen) #/HPF Amorphous Sediment Few Urine Bacteria Trace A (NONE SEEN) #/HPF Urine Casts None seen (NONE SEEN) #/LPF Urine Mucus None seen (NONE SEEN) Ur Culture Indicated? No Acetone, Qual (NEGATIVE) Influenza Type A Ag Influenza Type B Ag SARS-CoV-2 Ag (CV2AG) (NEGATIVE) POC Glucose (74-106) mg/dL Blood Type O Positive Antibody Screen Negative 01/15/25 01/15/25 Range/Units 02:35 03:28 WBC (4.0-11.0) 10^3/uL RBC (4.70-6.10) 10^6/uL Hgb (14.0-18.0) g/dL Hct (42.0-54.0) % MCV (80.0-94.0) fL MCH (25.9-34.0) pg MCHC (29.9-35.2) g/dL RDW (11.0-15.0) % Plt Count (150-450) 10^3/uL MPV (9.5-13.5) fL Seg Neuts % (Manual) (43.0-75.0) Band Neutrophils % (0-5) % Lymphocytes % (Manual) (20.5-60.0) % Monocytes % (Manual) (1.7-12.0) % Eosinophils % (Manual) (0.9-7.0) % Basophils % (Manual) (0.2-2.0) % Metamyelocytes % Neutrophils # (Manual) (1.4-6.5) 10^3/uL Band Neutrophils # (0.0-0.3) 10^3/uL Lymphocytes # (Manual) (1.20-3.80) 10^3/uL Monocytes # (Manual) (0.30-0.80) 10^3/uL Eosinophils # (Manual) (0.00-0.70) 10^3/uL Basophils # (Manual) (0.00-0.10) 10^3/uL Metamyelocytes # Hypersegmented Neuts Toxic Granulation Garvin Cells Acanthocytes (Spur) Schistocytes Puncture Site ABG pH (7.350-7.450) ABG pCO2 (35.0-45.0) mmHg ABG pO2 (80.0-100.0) mmHg ABG HCO3 (22.0-26.0) mmol/L ABG O2 Saturation % ABG Base Excess (-2.0-2.0) mmol/L Wes Test (POSITIVE) O2 Liters/Min Sodium (136-145) mmol/L Potassium (3.5-5.1) mmol/L Chloride (98-107) mmol/L Carbon Dioxide (21.0-32.0) mmol/L Anion Gap BUN (7.0-18.0) mg/dL Creatinine (0.70-1.30) mg/dL Est GFR ( Amer) (>=60 mL/min/1.73m^2) Est GFR (Non-Af Amer) (>=60 mL/min/1.73m^2) BUN/Creatinine Ratio Glucose (74-106) mg/dL Lactate (0.4-2.0) mmol/L Calcium (8.5-10.1) mg/dL Total Bilirubin (0.2-1.0) mg/dL AST (15-37) U/L ALT (16-63) U/L Alkaline Phosphatase (46-116) U/L Troponin I High Sens (4.0-76.1) pg/mL Total Protein (6.4-8.2) g/dL Albumin (3.4-5.0) g/dL Globulin g/dL Albumin/Globulin Ratio Urine Color (YELLOW) Urine Clarity (CLEAR) Urine pH (5.0-9.0) Ur Specific [place] (1.005-1.025) Urine Protein (NEG/TRACE) mg/dL Urine Glucose (UA) (NEGATIVE) mg/dL Urine Ketones (NEGATIVE) mg/dL Urine Occult Blood (NEGATIVE) Urine Nitrite (NEGATIVE) Urine Bilirubin (NEGATIVE) Urine Urobilinogen (0.2-1.0) EU/dL Ur Leukocyte Esterase (NEGATIVE) Urine RBC (0-2) #/HPF Urine WBC (NONE SEEN) #/HPF Ur Squamous Epith Cells (NONE/RARE) #/LPF Urine Crystals (None Seen) #/HPF Amorphous Sediment Urine Bacteria (NONE SEEN) #/HPF Urine Casts (NONE SEEN) #/LPF Urine Mucus (NONE SEEN) Ur Culture Indicated? Acetone, Qual (NEGATIVE) Influenza Type A Ag Negative Influenza Type B Ag Negative SARS-CoV-2 Ag (CV2AG) Negative (NEGATIVE) POC Glucose 324 H (74-106) mg/dL Blood Type Antibody Screen ECG Data Attestation: I personally reviewed and interpreted this ECG as follows: (Sinus rhythm 83 beats minute, normal axis, normal intervals, no acute ST segment elevation or T wave inversion) Critical Care Time Critical Care Time Critical Care Time: Yes Total Critical Care Time: 35 Attestation: Due to this patient's presentation of fever, altered mental status, hyperglycemia with a history of hypertension and kidney disease and the high probability of sudden and clinically significant deterioration in his condition he required the highest level of my preparedness to intervene urgently. I provided critical care time including documentation time medication orders and management reevaluation vital sign assessment ordering and reviewing of lab test. Consultation with admitting hospitalist and reevaluation of the patient. Aggregate critical care time is 35 minutes including only time during which I was engaged in work directly related to his care and did not include time spent treating other patients simultaneously Discharge Plan Discharge Chief Complaint: Neuro Symptoms/Deficit Clinical Impression: Sepsis, Diabetic foot infection, Acute on chronic kidney failure, Hyperglycemia due to diabetes mellitus Patient Disposition: Admitted As Inpatient Time of Disposition Decision: 03:42 Condition: Fair Discharge Date/Time: 01/15/25 04:52
[2025-01-15 02:29] LABS: Lactate/Lactic Acid 1.2 mmol/L (0.4-2.0)
[2025-01-15 02:35] LABS: Bilirubin Urine NEGATIVE (NEGATIVE); Blood Urine MODERATE (NEGATIVE); Clarity Urine CLEAR (CLEAR); Color Urine LT. YELLOW (YELLOW); Glucose Urine UA >=1000 mg/dL (NEGATIVE); Ketones Urine NEGATIVE (NEGATIVE); Leukocyte Esterase Urine NEGATIVE (NEGATIVE); Nitrite Urine NEGATIVE (NEGATIVE); Protein Urine >=300 mg/dL (NEG/TRACE); Specific Gravity Urine 1.025 (1.005-1.025); Urobilinogen Urine 0.2 EU/dL (0.2-1.0)
[2025-01-15] MEDS: INSULIN REGULAR, HUMAN (100 UNIT/ML) 10 ML MDV 8 UNIT IV (02:40)
[2025-01-15 02:45] LABS: Amorphous Sediment Urine FEW; Bacteria Urine TRACE #/HPF (NONE SEEN); Cast Seen? NONE SEEN #/LPF (NONE SEEN); Crystals Seen? Seen #/HPF (None Seen); Mucus Urine NONE SEEN (NONE SEEN); RBC Urine 0-2 #/HPF (0-2); Squamous Epithelial Cell Urine NONE SEEN #/LPF (NONE/RARE); Urine Culture Indicated NO; WBC Urine 0-2 #/HPF (NONE SEEN)
[2025-01-15 02:53] LABS: Influenza Virus A Antigen Negative; Influenza Virus B Antigen Negative; Internal Control Within Normal Limits
[2025-01-15 02:54] LABS: Internal Control Within Normal Limits; SARS-CoV-2 Ag NEGATIVE (NEGATIVE)
[2025-01-15 03:06] LABS: Troponin I High Sensitivity 23.6 pg/mL (4.0-76.1)
[2025-01-15 03:30] LABS: Glucometer 324 mg/dL (74-106)
--- OUTSIDE RECORDS SUMMARY | 2025-01-15 04:10 | XMS_ITS | CCD ---
Author Organization [facility] Care Team Providers Care Restaurant Crew Member Name Role Phone Vincent Winters MD Primary Care Provider [phone] SINGH ., DR GALLARDO Attending Unavailable HOY [...] DR MANRIQUEZ Attending Unavailable PAY ., DR AMNRIQUEZ Admitting Unavailable HOY ., DR GALLARDO Consulting Unavailable HOY ., DR GALLARDO Attending Unavailable HOY ., DR GALLARDO Admmichell Unavailable HOY ., DR GALLARDO Primary Care Unavailable HATFIELD, DR RAMIRO Cramer Consulting Unavailable HOY ., [...] Care UnavailVincent Erickson MD Primary Care Provider [phone] VINCENT WINTERS Referring Unavailable VINCENT WINTERS Primary Care Unavailable Vincent Winters MD Primary Care Provider [phone] Vincent Winters MD Primary Care Provider [phone] Vincent Winters Primary Care Physician [phone] CONSULT, NEUROLOGY Consulting Unavailable KARL BIRD Attending [...] Propensity to adverse reactions to drug (disorder) [facility] Repository Medications Current Medications Medication Drug [...] sodium chloride 0.9 % 250 mL infusion ([id number]) (2 sources) Start: 09-28-2024 2.5-15 mg/hr (25-150 [...] used to maintain goal. Use 20mm (Blue) [id number] Adapter Preparation instructions: Attach medication vial to one 20mm (Blue) [id number] adapter. Darvin fluid bag with adapter, mix, and administer per order. 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 INSULIN] Onset: 12-30-2022 Episodic Other aftercare (3 sources) Other chcf (current) drug therapy; Translations: [OTH ELECTRONICS SYSTEM MECHANIC CURRENT DRUG THERAPY] Onset: 12-30-2022 Episodic Other [...] Test Name Value Interpretation [facility] Report PERFORMED AT [facility] [employer] [facility] Comment on above: Result Comment: (NOT [...] and its performancecharacteristics determined by [facility] in a mannerconsistent with CLIA requirements. This test has not beencleared or approved by the U.S. Food and DrugAdministration.+ +: PERFORMING SITE LEGEND :+ +: MCR : [facility] :: : [address] [place] [address] :+ +Re ceived and reported dates and times are reported in USCentral Time. Performed By: #### C MIS1 ####[address] [place] [address] lab Director: Ramiro Mark MD Basic Metabolic Panelon 12-2 Anion gap [Moles/Vol] 8 mmol/L Low 9 - 16 mmol/L [facility] Calcium [Mass/Vol] 8.2 mg/dL Low 8.6 - 10. 4 mg/dL [facility] Chloride [Moles/Vol] 106 mmol/L 98 - 10 7 mmol/L [facility] CO2 [Moles/Vol] 23 mmol/L 20 - 31 mmol/L [facility] Creatinine [Mass/Vol] 2.0 mg/dL High 0.70 - 1.20 mg/dL [facility] Johnson Talbert Rate 41 Low - PINF [facility] Comment on above: These results [...] 166 mg/dL High 74 - 99 mg/dL [facility] Interpretation and review of laboratory results Abnormal [facility] Potassium [Moles/Vol] 5.8 mmol/L High 3.7 - 5.3 mmol/L [facility] Sodium [Moles/Vol] 137 mmol/L 136 - 145 mmol/L [facility] Urea nitrogen [Mass/Vol] 46 mg/dL High 6 - 20 mg/dL [facility] Urea nitrogen/Creatinine [Mass ratio] 23 mg/mg High 9 - 20 [facility] Basic Metabolic Profon 10-14 Anion gap [Moles/Vol] 8 mmol/L Low 9-[address] [facility] Comment on above: Performed By: #### B MP #### [facility] [address] [place] [address] Retail Salesworker: Ramiro Santillan MD BUN/CRE Ratio 23 High 9-20 [facility] Comment on above: Performed By: #### B MP #### [facility] [address] [place] [address] Retail Salesworker: Ramiro Santillan MD Calcium [Mass/Vol] 8.2 mg/dL Low 8.6-10.4 [facility] Comment on above: Performed By: #### B MP #### [facility] [address] [place] [address] Retail Salesworker: Ramiro Santillan MD Chloride [Moles/Vol] 106 mmol/L Normal 98-107 [facility] Comment on above: Performed By: #### B MP #### [facility] [address] [place] [address] Retail Salesworker: Ramiro Santillan MD CO2 [Moles/Vol] 23 mmol/L Normal 20-31 [facility] Comment on above: Performed By: #### B MP #### [facility] [address] [place] [address] Retail Salesworker: Ramiro Santillan MD Creatinine [Mass/Vol] 2.0 mg/dL High 0.70-1.[address] [facility] Comment on above: Performed By: #### B MP #### [facility] [address] [place] [address] Retail Salesworker: Ramiro Santillan MD GFR/1.73 sq M.predicted among non-blacks MDRD (S/P/Bld) [Vol rate/Area] 41 mL/min/{1.73_m2} Low >60 [facility] Comment on above: Result Comment: These results [...] secretion. Performed By: #### B MP #### [facility] [address] [place] [address] Retail Salesworker: Ramiro Santillan MD Glucose [Mass/Vol] 166 mg/dL High 74-99 [facility] Comment on above: Performed By: #### B MP #### [facility] [address] [place] [address] Retail Salesworker: Ramiro Santillan MD Potassium [Moles/Vol] 5.8 mmol/L High 3.7-5.[address] [facility] Comment on above: Performed By: #### B MP #### [facility] [address] [place], [place] [phone] Retail Salesworker: Ramiro Santillan MD Sodium [Moles/Vol] 137 mmol/L Normal 136-145 [facility] Comment on above: Performed By: #### B MP #### [facility] [address] [place], [place] [phone] Retail Salesworker: Ramiro Santillan MD Urea nitrogen [Mass/Vol] 46 mg/dL High 6-20 [facility] Comment on above: Performed By: #### B MP #### [facility] [address] [place], [place] [phone] Retail Salesworker: Ramiro Santillan MD Hemoglobin A1Con 10-08-[address] Gluc >427 Normal [facility] Comment on above: Result Comment: SIMONA ECTED ON 10/08 AT 1012: PREVIOUSLY REPORTED Sent to reference laboratory. Separate report to follow. The ADA and AACC recommend providing the estimated average glucose result to permit better patient understanding of their HBA1c result. Performed By: #### L ACTIC #### [facility] [address] [place] [address] Dr. [place], [place] [phone] Retail Salesworker: Ramiro Santillan MD HbA1c (Bld) [Mass fraction] % High 4.0-6.0 [facility] Comment on above: Result Comment: SIMONA ECTED ON 10/08 AT 1012: PREVIOUSLY REPORTED Sent to reference laboratory. Separate report to follow. Performed By: #### L ACTIC #### [facility] [address] [place] [address] Retail Salesworker: Ramiro Santillan MD Cult,CSFon 10-07-2024 Cult,CSF Normal [facility] Comment on above: Performed By: #### C FC ####[id number] [place], [place] [phone] Director: Ramiro Mark MD Basic Metab w/rfx MGon 10-06 Anion gap [Moles/Vol] 7 mmol/L Low 9-[address] [facility] Comment on above: Performed By: #### C CAMILO FIERRO, BMPX ####[facility] [address] [place], [place] [address])[phone] Director: Ramiro Mark MD Calcium [Mass/Vol] 8.3 mg/dL Low 8.6-10.4 [facility] Comment on above: Performed By: #### C CAMILO FIERRO BMPX ####[facility] [address] [place] [address])[phone] Director: Ramiro Mark MD Chloride [Moles/Vol] 102 mmol/L Normal 98-107 [facility] Comment on above: Performed By: #### C CAMILO FIERRO BMPX ####[facility] [address] [place], [place] [address])[phone] Director: Ramiro Mark MD CO2 [Moles/Vol] 23 mmol/L Normal 20-31 [facility] Comment on above: Performed By: #### C CAMILO FIERRO BMPX ####[facility] [address] [place], [place] [phone] Director: Ramiro Mark MD Creatinine [Mass/Vol] 2.1 mg/dL High 0.7-1.[address] [facility] Comment on above: Performed By: #### C CAMILO FIERRO BMPX ####[facility] [address] [place], [place] [address])[phone] Director: Ramiro Mark MD GFR/1.73 sq M.predicted among non-blacks MDRD (S/P/Bld) [Vol rate/Area] 38 mL/min/{1.73_m2} Low >60 [facility] Comment on above: Result Comment: Thes [...] Performed By: #### C CAMILO FIERRO BMPX ####[facility] [address] [place] [address] [phone] Director: Ramiro Mark MD Glucose [Mass/Vol] 250 mg/dL High 74-99 [facility] Comment on above: Performed By: #### C CAMILO FIERRO BMPX ####[address] [phone] Director: Ramiro Mark MD Potassium [Moles/Vol] 4.6 mmol/L Normal 3.7-5.[address] [facility] Comment on above: Result Comment: Spec imen hemolysis has exceeded the interference as defined by Jaime. Value may be falsely increased. Suggest recollection if clinically indicated. Performed By: #### C CAMILO FIERRO BMPX ####[facility] [address] [place] [address] [phone] Director: Ramiro Mark MD Sodium [Moles/Vol] 132 mmol/L Low 136-145 [facility] Comment on above: Performed By: #### C CAMILO FIERRO BMPX ####[facility] [address] [place], [place] [phone] Director: Ramiro Mark MD Urea nitrogen [Mass/Vol] 47 mg/dL High 6-20 [facility] Comment on above: Performed By: #### C CAMILO FIERRO BMPX ####[facility] [address] [place], [place] [id number])[phone] Director: Ramiro Mark MD Basic Metabolic Panel w/ Ref jose to MGon 12--2024 Anion gap [Moles/Vol] 7 mmol/L Low 9 - 16 mmol/L [facility] Calcium [Mass/Vol] 8.3 mg/dL Low 8.6 - 10. 4 mg/dL [facility] Chloride [Moles/Vol] 102 mmol/L 98 - 10 7 mmol/L [facility] CO2 [Moles/Vol] 23 mmol/L 20 - 31 mmol/L [facility] Creatinine [Mass/Vol] 2.1 mg/dL High 0.7 - 1.2 mg/dL [facility] Est, Glom Filt Rate 38 Low - PINF [facility] Glucose [Mass/Vol] 250 mg/dL High 74 - 99 mg/dL [facility] Interpretation and review of laboratory results Abnormal [facility] Potassium [Moles/Vol] 4.6 mmol/L 3.7 - 5.3 mmol/L [facility] Sodium [Moles/Vol] 132 mmol/L Low 136 - 145 mmol/L [facility] Urea nitrogen [Mass/Vol] 47 mg/dL High 6 - 20 mg/dL [facility] CBC with Auto Differentialon 10-06-2024 Basophils (Bld) [#/Vol] 0.06 10*3/uL [facility] Basophils/100 WBC (Bld) 1 % 0 - 2 % [facility] Eosinophils (Bld) [#/Vol] 0.32 10*3/uL [facility] Eosinophils/100 WBC (Bld) 5 % High 1 - 4 % [facility] Erythrocyte distribution width (RBC) [Ratio] 13.0 % 11.8 - 14.4 % [facility] Hematocrit (Bld) [Volume fraction] 26.5 % Low 40.7 - 50.3 % [facility] Hemoglobin (Bld) [Mass/Vol] 8.8 g/dL Low 13.0 - 17.0 g/dL [facility] Immature granulocytes (Bld) [#/Vol] 0.04 10*3/uL [facility] Immature granulocytes/100 WBC (Bld) 1 % High [address] [facility] Interpretation and review of laboratory results Abnormal [facility] Lymphocytes/100 WBC (Bld) 19 % Low 24 - 43 % [facility] Lymphocytes/100 WBC (Bld) 1.39 % [facility] MCH (RBC) [Entitic mass] 28.5 pg 25.2 - 33.[address] [facility] MCHC (RBC) [Mass/Vol] 33.2 g/dL 28.4 - 34.8 g/dL [facility] MCV (RBC) [Entitic vol] 85.8 fL 82.6 - 102.9 fL [facility] Monocytes/100 WBC (Bld) 9 % 3 - 12 % [facility] Monocytes/100 WBC (Bld) 0.61 % [facility] Neutrophils/100 WBC (Bld) 65 % 36 - 65 % [facility] Nucleated RBC/100 WBC (Bld) [Ratio] 0.0 % 0.0 per [address] [facility] Platelet mean volume (Bld) [Entitic vol] 10.1 fL 8.1 - 13.[address] [facility] Platelets (Bld) [#/Vol] 210 10*3/uL [facility] RBC (Bld) [#/Vol] 3.09 10*6/uL Low 4.21 - 5.7 7 m/uL [facility] Segmented neutrophils/100 WBC (Bld) 4.76 % [facility] WBC other (Bld) [#/Vol] 7.2 [facility] CBC with Diffon 10-06-2024 Abs. Basophil 0.06 k/uL Normal 0.00-0.20 [facility] Comment on above: Performed By: #### C CAMILO FIERRO BMPX ####[id number] [place], [place] [id number] lab Director: Ramiro Mark MD Abs.Imm.Granulocyte 0.04 k/uL Normal 0.00-0.30 [facility] Comment on above: Performed By: #### C CAMILO FIERRO BMPX ####[facility] [address] [place], [place] [address])[phone] Director: Ramiro Mark MD Abs.Neutrophil (Seg) 4.76 k/uL Normal 1.50-8.10 [facility] Comment on above: Performed By: #### C CAMILO FIERRO, BMPX ####[place], [place] [address])[phone] Director: Ramiro Mark MD Basophils/100 WBC (Bld) 1 % Normal 0-2 [facility] Comment on above: Performed By: #### C CAMILO FIERRO BMPX ####[place], [place] [address])[phone] Director: Ramiro Mark MD Eosinophils (Bld) [#/Vol] 0.32 10*3/uL Normal 0.00-0.44 [facility] Comment on above: Performed By: #### C CAMILO FIERRO, BMPX ####[place], [place] [address])[phone] Director: Ramiro Mark MD Eosinophils/100 WBC (Bld) 5 % High 1-4 [facility] Comment on above: Performed By: #### C CAMILO FIERRO BMPX ####[place], [place] [address])[phone] Director: Ramiro Mark MD Erythrocyte distribution width (RBC) [Ratio] 13.0 % Normal 11.8-14.4 [facility] Comment on above: Performed By: #### C CAMILO FIERRO BMPX ####[facility] [address] [place], [place] [address])[phone] Director: Ramiro Mark MD Hematocrit (Bld) [Volume fraction] 26.5 % Low 40.7-50.3 [facility] Comment on above: Performed By: #### C CAMILO FIERRO BMPX ####[facility] [address] [place], [place] [phone] Director: Ramiro Mark MD Hemoglobin (Bld) [Mass/Vol] 8.8 g/dL Low 13.0-17.0 [facility] Comment on above: Performed By: #### C CAMILO FIERRO BMPX ####[facility] [address] [place] [address] [id number])[phone] Director: Ramiro Mark MD Immature granulocytes/100 WBC (Bld) 1 % High 0 [facility] Comment on above: Performed By: #### C CAMILO FIERRO BMPX ####[address] [address])[phone] Director: Ramiro Mark MD Lymphocytes (Bld) [#/Vol] 1.39 10*3/uL Normal 1.10-3.70 [facility] Comment on above: Performed By: #### C CAMILO FIERRO BMPX ####[address] [address])[phone] Director: Ramiro Mark MD Lymphocytes/100 WBC (Bld) 19 % Low 24-43 [facility] Comment on above: Performed By: #### C CAMILO FIERRO BMPX ####[address] [address])[phone] Director: Ramiro Mark MD MCH (RBC) [Entitic mass] 28.5 pg Normal 25.2-33.5 [facility] Comment on above: Performed By: #### C CAMILO FIERRO BMPX ####[address] [phone])[phone] Director: Ramiro Mark MD MCHC (RBC) [Mass/Vol] 33.2 g/dL Normal 28.4-34.[address] [facility] Comment on above: Performed By: #### C FREDY FIERRORA, BMPX ####[address] [address])[phone] Director: Ramiro Mark MD MCV (RBC) [Entitic vol] 85.8 fL Normal 82.6-102.9 [facility] Comment on above: Performed By: #### C SRI, FREDYRA, BMPX ####[place], [place] [address])[phone] Director: Ramiro Mark MD Monocytes (Bld) [#/Vol] 0.61 10*3/uL Normal 0.10-1.20 [facility] Comment on above: Performed By: #### C CAMILO FIERRO, BMPX ####[address] [address])[phone] Director: Ramiro Mark MD Monocytes/100 WBC (Bld) 9 % Normal 3-12 [facility] Comment on above: Performed By: #### C CAMILO FIERRO, BMPX ####[address] [address])[phone] Director: Ramiro Mark MD Neutrophil (Seg) 65 % Normal 36-65 [facility] Comment on above: Performed By: #### C FREDY FIERRORA, BMPX ####[address] [address])[phone] Director: Ramiro Mark MD NRBC Automated 0.0 per 100 WBC Normal 0.0 [facility] Comment on above: Performed By: #### C CAMILO FIERRO, BMPX ####[place], [place] [address])[phone] Director: Ramiro Mark MD Platelet mean volume (Bld) [Entitic vol] 10.1 fL Normal 8.1-13.5 [facility] Comment on above: Performed By: #### C DP, KEPPRA, BMPX ####[facility] [address] [place], [place] [phone] Director: Ramiro Mark MD Platelets (Bld) [#/Vol] 210 10*3/uL Normal 138-453 [facility] Comment on above: Performed By: #### C DP, KEPPRA, BMPX ####[facility] [address] [place], [place] [id number])[phone] Director: Ramiro Mark MD RBC (Bld) [#/Vol] 3.09 10*6/uL Low 4.21-5.77 [facility] Comment on above: Performed By: #### C DP, KEPPRA, BMPX ####[facility] [address] [place], [place] [phone] Director: Ramiro Mark MD WBC (Bld) [#/Vol] 7.2 10*3/uL Normal 3.5-11.3 [facility] Comment on above: Performed By: #### C DP, KEPPRA, BMPX ####[facility] [address] [place], [place] [id number])[phone] Director: Ramiro Mark MD Glucose,Whole Bloodon 2023 Glucose [Mass/Vol] 205 mg/dL High 75-110 [facility] Glucose [Mass/Vol] 187 mg/dL High 75-110 [facility] Glucose [Mass/Vol] 203 mg/dL High 75-110 [facility] Glucose [Mass/Vol] 220 mg/dL High 75-110 [facility] Keppraon 10-06-2024 KEPP 30 ug/mL Normal [facility] Comment on above: Result Comment: A [...] Performed By: #### C DP, KEPPRA, BMPX ####[facility] [address] [place], [place] [id number] Lab Director: Ramiro Mark MD Levetiracetam Levelon 2023 levETIRAcetam [Mass/Vol] 30 ug/mL [facility] Oligoclonal Bandson 10-06-20 24 CSF Isoelectric Focusing Interpretation See Note [facility] Oligo Bands Negative [facility] Oligoclonal bands Isoelectric focusing (CSF) [#] 0 [facility] CSF IEF Interp See Note Normal [facility] Comment on above: Result Comment: [...] exercise caution when interpreting the results.Performed By: [facility] [place], [place] [address]Eekokmpklp Director: Rogelio Miranda MD, PhDCLIA Number: [id number] Performed By: #### O LIG ####[facility] [address] [place], [place] [id number] Lab Director: Ramiro Mark MD#### AOLIG ####[facility] [address] [place], [place] [id number] lab Director: Wil Swanson MD Oligo Bands Numb 0 Bands Normal 0-1 [facility] Comment on above: Performed By: #### O LIG ####[facility] [address] [place] [address] lab Director: Ramiro Mark MD#### AOLIG ####[facility] [address] [place] [address] lab Director: Wil Swanson MD Oligoclonal Bands Negative Normal [facility] Comment on above: Performed By: #### O LIG ####[facility] [address] [place] [address] lab Director: Ramiro Mark MD#### AOLIG ####[facility] [address] [place] [address] lab Director: Wil Swanson MD POC Glucose Fingerstickon Glucose [Mass/Vol] 205 mg/dL High 75 - 110 mg/dL [facility] Interpretation and review of laboratory results Abnormal [facility] Glucose [Mass/Vol] 187 mg/dL High 75 - 110 mg/dL [facility] Interpretation and review of laboratory results Abnormal [facility] Glucose [Mass/Vol] 203 mg/dL High 75 - 110 mg/dL [facility] Interpretation and review of laboratory results Abnormal [facility] Glucose [Mass/Vol] 220 mg/dL High 75 - 110 mg/dL [facility] Interpretation and review of laboratory results Abnormal [facility] VITAMIN B1on 10-06-2024 Thiamine pyrophosphate (Bld) [Moles/Vol] 107 nmol/L 70 - 180 nmol/L [facility] Vitamin B1on 10-06-2024 Vitamin B1 107 nmol/L Normal 70-180 [facility] Comment on above: Result Comment: (NOT E)INTERPRETIVE INFORMATION: Vitamin B1, Whole BloodThis assay measures the concentration of thiamine diphosphate(TDP), the primary active form of vitamin B1. Approximately 90percent of vitamin B1 present in whole blood is TDP. Thiamine andthiamine monophosphate, which comprise the remaining 10 percent,are not measured.This test was developed and its performance characteristicsdetermined by [facility]. It has not been cleared orapproved by the [place] Food and Drug Administration. This test wasperformed in a CLIA certified laboratory and is intended forclinical purposes.Performed By: [facility] [place], [place] [address]Fnxobxrfpl Director: Rogelio Miranda MD, PhDCLIA Number: [id number] Performed By: #### A VITB1 ####[facility] [place] [address] lab Director: Wil Swanson MD#### TREP, B12FOL ####[address] [place] [address] lab Director: Ramiro Mark MD WEST NILE VIRUS, CSFon 10-06 WEST NILE AB IGG CSF 0.38 [facility] WEST NILE AB IGM CSF 0.00 [facility] West Nile Virus, CSFon 10-06 WNV Ab IgG, CSF 0.38 IV Normal <=1.29 [facility] Comment on above: Result Comment: [...] other members of the Flaviviridae family,such as [place] encephalitis virus, show extensivecross-reactivity with West Nile virus, serologic testing specificfor these species should be considered.The detection of antibodies to West Nile virus in cerebrospinalfluid may indicate central nervous system infection. However,consideration must be given to possible contamination by blood ortransfer of serum antibodies across the blood-brain barrier.This test was developed and its performance characteristicsdetermined by [facility]. It has not been cleared orapproved by the [place] Food and Drug Administration. This test wasperformed in a CLIA certified laboratory and is intended forclinical purposes. Performed By: #### C TP, MEVP, CFVD, CGLU, CFCNT ####[address] [place] [address] Lab Director: Ramiro Mark MD#### DESHAUN, AWNCSF ####[facility] [address] [place], [place] [id number] Lab Director: Wil Swanson MD WNV Ab IgM, CSF 0.00 IV Normal <=0.89 [facility] Comment on above: Result Comment: [...] other members of the Flaviviridae family,such as [place] encephalitis virus, show extensivecross-reactivity with West Nile virus, serologic testing specificfor these species should be considered.The detection of antibodies to West Nile virus in cerebrospinalfluid may indicate central nervous system infection. However,consideration must be given to possible contamination by blood ortransfer of serum antibodies across the blood-brain barrier.This test was developed and its performance characteristicsdetermined by [facility]. It has not been cleared orapproved by the [place] Food and Drug Administration. This test wasperformed in a CLIA certified laboratory and is intended forclinical purposes.Performed By: [employer] [place] [id number] Director: Rogelio Miranda MD, PhDCLIA Number: [id number] Performed By: #### C TP, MEVP, CFVD, CGLU, CFCNT ####[facility] [address] [place] [id number] Lab Director: Ramiro Mark MD#### ALYMCT, AWNCSF ####[address] [id number] Lab Director: Wil Swanson MD Basic Metab w/rfx MGon 10-05 Anion gap [Moles/Vol] 8 mmol/L Low 9-[address] [facility] Comment on above: Performed By: #### C DP, BMPX ####[facility] [address] [place] [address] [phone] Director: Ramiro Mark MD Calcium [Mass/Vol] 7.9 mg/dL Low 8.6-10.4 [facility] Comment on above: Performed By: #### C DP, BMPX ####[facility] [address] [place] [address] [phone] Director: Ramiro Mark MD Chloride [Moles/Vol] 103 mmol/L Normal 98-107 [facility] Comment on above: Performed By: #### C DP, BMPX ####[facility] [address] [place], [place] [phone] Director: Ramiro Mark MD CO2 [Moles/Vol] 24 mmol/L Normal 20-31 [facility] Comment on above: Performed By: #### C DP, BMPX ####[facility] [address] [place] [address] [phone] Director: Ramiro Mark MD Creatinine [Mass/Vol] 2.0 mg/dL High 0.7-1.[address] [facility] Comment on above: Performed By: #### C DP, BMPX ####[facility] [address] [place] [address] [phone] Director: Ramiro Mark MD GFR/1.73 sq M.predicted among non-blacks MDRD (S/P/Bld) [Vol rate/Area] 40 mL/min/{1.73_m2} Low >60 [facility] Comment on above: Result Comment: Thes [...] By: #### C DP, BMPX ####[facility] [address] [place] [address] [phone] Director: Ramiro Mark MD Glucose [Mass/Vol] 189 mg/dL High 74-99 [facility] Comment on above: Performed By: #### C DP, BMPX ####[facility] [address] [place] [address] [phone] Director: Ramiro Mark MD Potassium [Moles/Vol] 4.5 mmol/L Normal 3.7-5.[address] [facility] Comment on above: Performed By: #### C DP, BMPX ####[facility] [address] [place], [place] [phone] Director: Ramiro Mark MD Sodium [Moles/Vol] 135 mmol/L Low 136-145 [facility] Comment on above: Performed By: #### C DP, BMPX ####[facility] [address] [place] [address] [phone] Director: Ramiro Mark MD Urea nitrogen [Mass/Vol] 46 mg/dL High 6-20 [facility] Comment on above: Performed By: #### C DP, BMPX ####[facility] [address] [place] [address] lab Director: Ramiro Mark MD Basic Metabolic Panel w/ Ref jose to MGon 10-05-2024 Anion gap [Moles/Vol] 8 mmol/L Low 9 - 16 mmol/L [facility] Calcium [Mass/Vol] 7.9 mg/dL Low 8.6 - 10. 4 mg/dL [facility] Chloride [Moles/Vol] 103 mmol/L 98 - 10 7 mmol/L [facility] CO2 [Moles/Vol] 24 mmol/L 20 - 31 mmol/L [facility] Creatinine [Mass/Vol] 2.0 mg/dL High 0.7 - 1.2 mg/dL [facility] Est, Glom Filt Rate 40 Low - PINF [facility] Glucose [Mass/Vol] 189 mg/dL High 74 - 99 mg/dL [facility] Interpretation and review of laboratory results Abnormal [facility] Potassium [Moles/Vol] 4.5 mmol/L 3.7 - 5.3 mmol/L [facility] Sodium [Moles/Vol] 135 mmol/L Low 136 - 145 mmol/L [facility] Urea nitrogen [Mass/Vol] 46 mg/dL High 6 - 20 mg/dL [facility] CBC with Auto Differentialon 10-05-2024 Basophils (Bld) [#/Vol] 0.04 10*3/uL [facility] Basophils/100 WBC (Bld) 1 % 0 - 2 % [facility] Eosinophils (Bld) [#/Vol] 0.28 10*3/uL [facility] Eosinophils/100 WBC (Bld) 4 % 1 - 4 % [facility] Erythrocyte distribution width (RBC) [Ratio] 13.0 % 11.8 - 14.4 % [facility] Hematocrit (Bld) [Volume fraction] 25.8 % Low 40.7 - 50.3 % [facility] Hemoglobin (Bld) [Mass/Vol] 8.3 g/dL Low 13.0 - 17.0 g/dL [facility] Immature granulocytes (Bld) [#/Vol] 0.03 10*3/uL [facility] Immature granulocytes/100 WBC (Bld) 1 % High [address] [facility] Interpretation and review of laboratory results Abnormal [facility] Lymphocytes/100 WBC (Bld) 20 % Low 24 - 43 % [facility] Lymphocytes/100 WBC (Bld) 1.29 % [facility] MCH (RBC) [Entitic mass] 28.3 pg 25.2 - 33.[address] [facility] MCHC (RBC) [Mass/Vol] 32.2 g/dL 28.4 - 34.8 g/dL [facility] MCV (RBC) [Entitic vol] 88.1 fL 82.6 - 102.[address] [facility] Monocytes/100 WBC (Bld) 10 % 3 - 12 % [facility] Monocytes/100 WBC (Bld) 0.68 % [facility] Neutrophils/100 WBC (Bld) 64 % 36 - 65 % [facility] Nucleated RBC/100 WBC (Bld) [Ratio] 0.0 % 0.0 per [address] [facility] Platelet mean volume (Bld) [Entitic vol] 10.4 fL 8.1 - 13.[address] [facility] Platelets (Bld) [#/Vol] 198 10*3/uL [facility] RBC (Bld) [#/Vol] 2.93 10*6/uL Low 4.21 - 5.7 7 m/uL [facility] Segmented neutrophils/100 WBC (Bld) 4.20 % [facility] WBC other (Bld) [#/Vol] 6.5 [facility] CBC with Diffon 10-05-2024 Abs. Basophil 0.04 k/uL Normal 0.00-0.20 [facility] Comment on above: Performed By: #### C DP, BMPX ####[address] [place], [place] [address])[phone] Director: Ramiro Mark MD Abs.Imm.Granulocyte 0.03 k/uL Normal 0.00-0.30 [facility] Comment on above: Performed By: #### C DP, BMPX ####[address] [address])[phone] Director: Ramiro Mark MD Abs.Neutrophil (Seg) 4.20 k/uL Normal 1.50-8.10 [facility] Comment on above: Performed By: #### C DP, BMPX ####[place], [place] [address])[phone] Director: Ramiro Mark MD Basophils/100 WBC (Bld) 1 % Normal 0-2 [facility] Comment on above: Performed By: #### C DP, BMPX ####[place], [place] [address])[phone] Director: Ramiro Mark MD Eosinophils (Bld) [#/Vol] 0.28 10*3/uL Normal 0.00-0.44 [facility] Comment on above: Performed By: #### C DP, BMPX ####[address] [address])[phone] Director: Ramiro Mark MD Eosinophils/100 WBC (Bld) 4 % Normal 1-4 [facility] Comment on above: Performed By: #### C DP, BMPX ####[address] [address])[phone] Director: Ramiro Mark MD Erythrocyte distribution width (RBC) [Ratio] 13.0 % Normal 11.8-14.4 [facility] Comment on above: Performed By: #### C DP, BMPX ####[place], [place] [address])[phone] Director: Ramiro Mark MD Hematocrit (Bld) [Volume fraction] 25.8 % Low 40.7-50.3 [facility] Comment on above: Performed By: #### C DP, BMPX ####[facility] [address] [place], [place] [phone] Director: Ramiro Mark MD Hemoglobin (Bld) [Mass/Vol] 8.3 g/dL Low 13.0-17.0 [facility] Comment on above: Performed By: #### C DP, BMPX ####[address] [address])[phone] Director: Ramiro Mark MD Immature granulocytes/100 WBC (Bld) 1 % High 0 [facility] Comment on above: Performed By: #### C DP, BMPX ####[place], [place] [address])[phone] Director: Ramiro Mark MD Lymphocytes (Bld) [#/Vol] 1.29 10*3/uL Normal 1.10-3.70 [facility] Comment on above: Performed By: #### C DP, BMPX ####[address] [address])[phone] Director: Ramiro Mark MD Lymphocytes/100 WBC (Bld) 20 % Low 24-43 [facility] Comment on above: Performed By: #### C DP, BMPX ####[facility] [address] [place], [place] [address])[phone] Director: Ramiro Mark MD MCH (RBC) [Entitic mass] 28.3 pg Normal 25.2-33.5 [facility] Comment on above: Performed By: #### C DP, BMPX ####[facility] [address] [place], [place] [address])[phone] Director: Ramiro Mark MD MCHC (RBC) [Mass/Vol] 32.2 g/dL Normal 28.4-34.[address] [facility] Comment on above: Performed By: #### C DP, BMPX ####[place], [place] [address])[phone] Director: Ramiro Mark MD MCV (RBC) [Entitic vol] 88.1 fL Normal 82.6-102.9 [facility] Comment on above: Performed By: #### C DP, BMPX ####[place], [place] [address])[phone] Director: Ramiro Mark MD Monocytes (Bld) [#/Vol] 0.68 10*3/uL Normal 0.10-1.20 [facility] Comment on above: Performed By: #### C DP, BMPX ####[place], [place] [address])[phone] Director: Ramiro Mark MD Monocytes/100 WBC (Bld) 10 % Normal 3-12 [facility] Comment on above: Performed By: #### C DP, BMPX ####[place], [place] [address])[phone] Director: Ramiro Mark MD Neutrophil (Seg) 64 % Normal 36-65 [facility] Comment on above: Performed By: #### C DP, BMPX ####[place], [place] [address])[phone] Director: Ramiro Mark MD NRBC Automated 0.0 per 100 WBC Normal 0.0 [facility] Comment on above: Performed By: #### C DP, BMPX ####[place], [place] [address])[phone] Director: Ramiro Mark MD Platelet mean volume (Bld) [Entitic vol] 10.4 fL Normal 8.1-13.5 [facility] Comment on above: Performed By: #### C DP, BMPX ####[facility] [address] [place], [place] [phone])[phone] Director: Ramiro Mark MD Platelets (Bld) [#/Vol] 198 10*3/uL Normal 138-453 [facility] Comment on above: Performed By: #### C DP, BMPX ####[facility] [address] [place], [place] [phone])[phone] Director: Ramiro Mark MD RBC (Bld) [#/Vol] 2.93 10*6/uL Low 4.21-5.77 [facility] Comment on above: Performed By: #### C DP, BMPX ####[facility] [address] [place], [place] [phone])[phone] Director: Ramiro Mark MD WBC (Bld) [#/Vol] 6.5 10*3/uL Normal 3.5-11.3 [facility] Comment on above: Performed By: #### C DP, BMPX ####[facility] [address]zcrvp28[address] [place], [place] [phone])[phone] Director: Ramiro Mark MD Cytology, Non-Gynon 10-05-20 [facility] Electrophysiology procedureo n 10-05-2024 Body surface area Derived from formula [address] [facility] Glucose,Whole Bloodon 2023 Glucose [Mass/Vol] 167 mg/dL High 75-110 [facility] Glucose [Mass/Vol] 268 mg/dL High 75-110 [facility] Glucose [Mass/Vol] 153 mg/dL High 75-110 [facility] Glucose [Mass/Vol] 177 mg/dL High 75-110 [facility] Lyme Disease AB, CSFon 10-05 B. burgdorferi Ab IA Qn (CSF) 0.18 NINF [facility] Lyme Disease Ab,CSFon 2023 B burgdorferi Ab,CSF 0.18 IV Normal <=0.90 [facility] Comment on above: Result Comment: [...] was developed and its performance characteristicsdetermined by [facility]. It has not been cleared orapproved by the [place] Food and Drug Administration. This test wasperformed in a CLIA certified laboratory and is intended forclinical purposes.Performed By: [facility] [place], [place] [address]Lfpywvbizd Director: Rogelio Miranda MD, PhDCLIA Number: [id number] Performed By: #### C TP, MEVP, CFVD, CGLU, CFCNT ####[employer] [place] [id number] Lab Director: Ramiro Mark MD#### ALYMCHUCK, AWNCSF ####[facility] [place] [address] Lab Director: Wil Swanson MD No Panel Informationon 10-05 [facility] CV CPACS HEMO [facility] Radiology Study observation (narrative) [facility] No Panel InformationOrdered By: Adrian Bryant on 10-05-[address] [facility] Work Phone: Non-Vocal Performer Cytologyon Case No: [id number] Normal [facility] Comment on above: Performed By: #### N CHROMOSOMAL DISORDERS COUNSELOR ####[address] [place], [place] [id number] lab Director: Ramiro Mark MD POC Glucose Fingerstickon Glucose [Mass/Vol] 167 mg/dL High 75 - 110 mg/dL [facility] Interpretation and review of laboratory results Abnormal [facility] Glucose [Mass/Vol] 268 mg/dL High 75 - 110 mg/dL [facility] Interpretation and review of laboratory results Abnormal [facility] Glucose [Mass/Vol] 153 mg/dL High 75 - 110 mg/dL [facility] Interpretation and review of laboratory results Abnormal [facility] Glucose [Mass/Vol] 177 mg/dL High 75 - 110 mg/dL [facility] Interpretation and review of laboratory results Abnormal [facility] SURGICAL PATHOLOGY REPORTon 10-05-2024 Surgical Pathology Report [facility] US Heart Transesophagealon 1 12-06-2023 Body surface area Derived from formula [address] [facility] EF Physician 55 % [facility] CV CPACS HEMO [facility] Radiology Study observation (narrative) [facility] VDRL, CSFon 10-05-2024 Reagin Ab VDRL Ql (CSF) Non-Reactive NONREACTIVE [facility] VDRL, Qual, CSFon 10-05-2024 VDRL, Qual, CSF Non-Reactive Normal NR [facility] Comment on above: Performed By: #### C TP, MEVP, CFVD, CGLU, CFCNT ####[facility] [address] [place], [place] [id number] lab Director: Ramiro Mark MD#### ALYMCT, AWNCSF ####[facility] [address] [place] [address] [id number] Lab Director: Wil Swanson MD Basic Metab w/rfx MGon 10-04 Anion gap [Moles/Vol] 10 mmol/L Normal 9-[address] [facility] Comment on above: Performed By: #### C DP, BMPX, PT ####[facility] [address] [place] [address] Lab Director: Ramiro Mark MD Calcium [Mass/Vol] 7.9 mg/dL Low 8.6-10.4 [facility] Comment on above: Performed By: #### C DP, BMPX, PT ####[facility] [address] [place] [address] Lab Director: Ramiro Mark MD Chloride [Moles/Vol] 102 mmol/L Normal 98-107 [facility] Comment on above: Performed By: #### C DP, BMPX, PT ####[facility] [address] [place], [place] [phone] Director: Ramiro Mark MD CO2 [Moles/Vol] 21 mmol/L Normal 20-31 [facility] Comment on above: Performed By: #### C DP, BMPX, PT ####[facility] [address] [place] [address] Lab Director: Ramiro Mark MD Creatinine [Mass/Vol] 1.8 mg/dL High 0.7-1.[address] [facility] Comment on above: Performed By: #### C DP, BMPX, PT ####[facility] [address] [place] [address] Lab Director: Ramiro Mark MD GFR/1.73 sq M.predicted among non-blacks MDRD (S/P/Bld) [Vol rate/Area] 45 mL/min/{1.73_m2} Low >60 [facility] Comment on above: Result Comment: Thes [...] By: #### C DP, BMPX, PT ####[facility] [address] [place], [place] [address])[phone] Director: Ramiro Mark MD Glucose [Mass/Vol] 161 mg/dL High 74-99 [facility] Comment on above: Performed By: #### C SRI BMPX, PT ####[facility] [address] [place], [place] [address])[phone] Director: Ramiro Mark MD Potassium [Moles/Vol] 4.1 mmol/L Normal 3.7-5.[address] [facility] Comment on above: Performed By: #### C SRI BMPX, PT ####[facility] [address] [place], [place] [phone])[phone] Director: Ramiro Mark MD Sodium [Moles/Vol] 133 mmol/L Low 136-145 [facility] Comment on above: Performed By: #### C SRI BMPX, PT ####[facility] [address] [place], [place] [phone] Director: Ramiro Mark MD Urea nitrogen [Mass/Vol] 40 mg/dL High 6-20 [facility] Comment on above: Performed By: #### C DP BMPX, PT ####[facility] [address] [place], [place] [address])[phone] Director: Ramiro Mark MD Basic Metabolic Panel w/ Ref jose to MGon 10-04-2024 Anion gap [Moles/Vol] 10 mmol/L 9 - 16 mmol/L [facility] Calcium [Mass/Vol] 7.9 mg/dL Low 8.6 - 10. 4 mg/dL [facility] Chloride [Moles/Vol] 102 mmol/L 98 - 10 7 mmol/L [facility] CO2 [Moles/Vol] 21 mmol/L 20 - 31 mmol/L [facility] Creatinine [Mass/Vol] 1.8 mg/dL High 0.7 - 1.2 mg/dL [facility] Est, Glom Filt Rate 45 Low - PINF [facility] Glucose [Mass/Vol] 161 mg/dL High 74 - 99 mg/dL [facility] Interpretation and review of laboratory results Abnormal [facility] Potassium [Moles/Vol] 4.1 mmol/L 3.7 - 5.3 mmol/L [facility] Sodium [Moles/Vol] 133 mmol/L Low 136 - 145 mmol/L [facility] Urea nitrogen [Mass/Vol] 40 mg/dL High 6 - 20 mg/dL [facility] CBC with Auto Differentialon 10-04-2024 Basophils (Bld) [#/Vol] 0.03 10*3/uL [facility] Basophils/100 WBC (Bld) 0 % 0 - 2 % [facility] Eosinophils (Bld) [#/Vol] 0.28 10*3/uL [facility] Eosinophils/100 WBC (Bld) 4 % 1 - 4 % [facility] Erythrocyte distribution width (RBC) [Ratio] 12.9 % 11.8 - 14.4 % [facility] Hematocrit (Bld) [Volume fraction] 29.9 % Low 40.7 - 50.3 % [facility] Hemoglobin (Bld) [Mass/Vol] 9.8 g/dL Low 13.0 - 17.0 g/dL [facility] Immature granulocytes (Bld) [#/Vol] [facility] Immature granulocytes/100 WBC (Bld) 0 % [address] [facility] Interpretation and review of laboratory results Abnormal [facility] Lymphocytes/100 WBC (Bld) 15 % Low 24 - 43 % [facility] Lymphocytes/100 WBC (Bld) 1.18 % [facility] MCH (RBC) [Entitic mass] 28.2 pg 25.2 - 33.[address] [facility] MCHC (RBC) [Mass/Vol] 32.8 g/dL 28.4 - 34.8 g/dL [facility] MCV (RBC) [Entitic vol] 85.9 fL 82.6 - 102.[address] [facility] Monocytes/100 WBC (Bld) 8 % 3 - 12 % [facility] Monocytes/100 WBC (Bld) 0.64 % [facility] Neutrophils/100 WBC (Bld) 73 % High 36 - 65 % [facility] Nucleated RBC/100 WBC (Bld) [Ratio] 0.0 % 0.0 per [address] [facility] Platelet mean volume (Bld) [Entitic vol] 10.7 fL 8.1 - 13.[address] [facility] Platelets (Bld) [#/Vol] 225 10*3/uL [facility] RBC (Bld) [#/Vol] 3.48 10*6/uL Low 4.21 - 5.7 7 m/uL [facility] Segmented neutrophils/100 WBC (Bld) 5.80 % [facility] WBC other (Bld) [#/Vol] 8.0 [facility] CBC with Diffon 10-04-2024 Abs. Basophil 0.03 k/uL Normal 0.00-0.20 [facility] Comment on above: Performed By: #### C CHAI FIERRO, PT ####[facility] HospitalSocialVoltDjbfdnymdavn[address] [place] [address] Lab Director: Ramiro Mark MD Abs.Imm.Granulocyte <0.03 Normal 0.00-0.30 [facility] Comment on above: Performed By: #### C DPLEENAX, PT ####[facility] HospitalSocialVoltRkldbkmdfagj[address] [place] [id number] lab Director: Ramiro Mark MD Abs.Neutrophil (Seg) 5.80 k/uL Normal 1.50-8.10 [facility] Comment on above: Performed By: #### C DP, BMPX, PT ####[facility] [address] [place] [address] Lab Director: Ramiro Mark MD Basophils/100 WBC (Bld) 0 % Normal 0-2 [facility] Comment on above: Performed By: #### C DP, BMPX, PT ####[facility] [address] [place] [address])[phone] Director: Ramiro Mark MD Eosinophils (Bld) [#/Vol] 0.28 10*3/uL Normal 0.00-0.44 [facility] Comment on above: Performed By: #### C DP, BMPX, PT ####[facility] [address] [place], [place] [address])[phone] Director: Ramiro Mark MD Eosinophils/100 WBC (Bld) 4 % Normal 1-4 [facility] Comment on above: Performed By: #### C DP, BMPX, PT ####[facility] [address] [place], [place] [address])[phone] Director: Ramiro Mark MD Erythrocyte distribution width (RBC) [Ratio] 12.9 % Normal 11.8-14.4 [facility] Comment on above: Performed By: #### C DP, BMPX, PT ####[place], [place] [address])[phone] Director: Ramiro Mark MD Hematocrit (Bld) [Volume fraction] 29.9 % Low 40.7-50.3 [facility] Comment on above: Performed By: #### C DP, BMPX, PT ####[facility] [address] [place] [address])[phone] Director: Ramiro Mark MD Hemoglobin (Bld) [Mass/Vol] 9.8 g/dL Low 13.0-17.0 [facility] Comment on above: Performed By: #### C DP, BMPX, PT ####[facility] [address] [place] [address] Lab Director: Ramiro Mark MD Immature granulocytes/100 WBC (Bld) 0 % Normal 0 [facility] Comment on above: Performed By: #### C DP, BMPX, PT ####[facility] [address]tsirzj4978 [place], [place] [address])[phone] Director: Ramiro Mark MD Lymphocytes (Bld) [#/Vol] 1.18 10*3/uL Normal 1.10-3.70 [facility] Comment on above: Performed By: #### C DP, BMPX, PT ####[facility] [address] [place], [place] [address])[phone] Director: Ramiro Mark MD Lymphocytes/100 WBC (Bld) 15 % Low 24-43 [facility] Comment on above: Performed By: #### C DP, BMPX, PT ####[facility] [address] [place] [address])[phone] Director: Ramiro Mark MD MCH (RBC) [Entitic mass] 28.2 pg Normal 25.2-33.5 [facility] Comment on above: Performed By: #### C DP, BMPX, PT ####[facility] [address]ir[address] [place], [place] [address])[phone] Director: Ramiro Mark MD MCHC (RBC) [Mass/Vol] 32.8 g/dL Normal 28.4-34.[address] [facility] Comment on above: Performed By: #### C DP, BMPX, PT ####[facility] [address]xtbdc1888 [place] [address] Lab Director: Ramiro Mark MD MCV (RBC) [Entitic vol] 85.9 fL Normal 82.6-102.9 [facility] Comment on above: Performed By: #### C DP, BMPX, PT ####[facility] [address] [place], [place] [id number])[phone] Director: Ramiro Mark MD Monocytes (Bld) [#/Vol] 0.64 10*3/uL Normal 0.10-1.20 [facility] Comment on above: Performed By: #### C DP, BMPX, PT ####[facility] [address] [place] [address] [phone])[phone] Director: Ramiro Mark MD Monocytes/100 WBC (Bld) 8 % Normal 3-12 [facility] Comment on above: Performed By: #### C DP, BMPX, PT ####[facility] [address] [place] [address] [phone] Director: Ramiro Mark MD Neutrophil (Seg) 73 % High 36-65 [facility] Comment on above: Performed By: #### C DP, BMPX, PT ####[facility] [address] [place] [address] [phone] Director: Ramiro Mark MD NRBC Automated 0.0 per 100 WBC Normal 0.0 [facility] Comment on above: Performed By: #### C DP, BMPX, PT ####[facility] [address] [place] [address] [phone] Director: Ramiro Mark MD Platelet mean volume (Bld) [Entitic vol] 10.7 fL Normal 8.1-13.5 [facility] Comment on above: Performed By: #### C DP, BMPX, PT ####[facility] [address]xc[address] [place], [place] [phone] Director: Ramiro Mark MD Platelets (Bld) [#/Vol] 225 10*3/uL Normal 138-453 [facility] Comment on above: Performed By: #### C DP, BMPX, PT ####[facility] [address] [place] [address] 10666 Lab Director: Ramiro Mark MD RBC (Bld) [#/Vol] 3.48 10*6/uL Low 4.21-5.77 [facility] Comment on above: Performed By: #### C LEENA FIERROX, PT ####[facility] Bddoqqpqvfhm3423 [place], [place] [phone] Director: Ramiro Mark MD WBC (Bld) [#/Vol] 8.0 10*3/uL Normal 3.5-11.3 [facility] Comment on above: Performed By: #### C LEENA FIERROX, PT ####[facility] [address] [place] [address] [phone] Director: Ramiro Mark MD CSF Cell Counton 10-04-2024 Appearance (U) Clear Normal [facility] Comment on above: Performed By: #### C TP, MEVP, CFVD, CGLU, CFCNT ####[facility] [address] [place] [address] [phone] Director: Ramiro Mark MD#### CHESTER MEADE ####[facility] [address] [place], [place] [phone] Lab Director: Wil Swanson MD Clot Check None Seen Normal [facility] Comment on above: Performed By: #### C TP, MEVP, CFVD, CGLU, CFCNT ####[facility] [address] [place] [address] [phone] Director: Ramiro Mark MD#### CHESTER MEADE ####[facility] Bpuxnjdwh[address] [place], [place] [phone] Lab Director: Wil Swanson MD Color (U) Colorless Normal [facility] Comment on above: Performed By: #### C TP, MEVP, CFVD, CGLU, CFCNT ####[facility] [address] [place] [address] 49[address] Lab Director: Ramiro Mark MD#### CHESTER MEADE ####[facility] Ynnwewxdrabr748 [place] [address] Lab Director: Wil Swanson MD CSF Total Nucleated Cells 2 cells/uL Normal 0-5 [facility] Comment on above: Result Comment: Unab le to perform differential due to a low number of TNC/WBC's in specimen. Performed By: #### C TP, MEVP, CFVD, CGLU, CFCNT ####[facility] [address] [place] [address] 41427 Lab Director: Ramiro Mark MD#### CHESTER MEADE ####[facility] [address] [place] [address] Lab Director: Wil Swanson MD RBC (Bld) [#/Vol] 0 10*6/uL High 0 [facility] Comment on above: Performed By: #### C TP, MEVP, CFVD, CGLU, CFCNT ####[facility] [address] [place] [address] [phone] Director: Ramiro Mark MD#### CHESTER MEADE ####[facility] Vnkktpghyetz621 [place] [address] Lab Director: Wil Swanson MD Tube Number 3 Normal [facility] Comment on above: Performed By: #### C TP, MEVP, CFVD, CGLU, CFCNT ####[facility] [address] [place] [address] [phone] Director: Ramiro Mark MD#### CHESTER MEADE ####[facility] Rgeznplchtnx242 [place] [address] Lab Director: Wil Swanson MD Xanthochromia ABSENT Normal [facility] Comment on above: Performed By: #### C TP, MEVP, CFVD, CGLU, CFCNT ####[facility] [address]4 [place] [address] Lab Director: Ramiro Mark MD#### DESHAUN, AWSEBASSF ####[facility] [address]afqfed[address]268 [place] [address] Lab Director: Wil Swanson MD Volume 8 mL Normal [facility] Comment on above: Performed By: #### C TP, MEVP, CFVD, CGLU, CFCNT ####[facility] [address] [place], [place] [phone] lab Director: Ramiro Mark MD#### DESHAUN, AWNCSF ####[facility] [address] [place] [address] lab Director: Wil Swanson MD Cell Count with Differential , [facility] Appearance (CSF) Clear [facility] [employer] Cells Counted Total (Bronch spec) [#] 2 [facility] [employer] Clot Check None Seen [facility] [employer] Color (CSF) Colorless [facility] Interpretation and review of laboratory results Abnormal [facility] RBC Manual cnt (Body fld) [#/Vol] 3 High 0 cells/uL [facility] Specimen volume (CSF) [address] [facility] Tube number Nom (CSF) [ID] [address] [facility] Xanthochromia Ql (CSF) ABSENT [facility] Glucose, [facility] [place] 10-04-2024 Glucose (CSF) [Mass/Vol] 73 mg/dL High 40 - 70 mg/dL [facility] Glucose,[facility] [place] 10-04-2024 Glucose [Mass/Vol] 73 mg/dL High 40-70 [facility] Comment on above: Performed By: #### C TP, MEVP, CFVD, CGLU, CFCNT ####[facility] Sdxngppodvhe4388 [place], [place] [phone] Lab Director: Ramiro Mark MD#### ALYMCT, AWNCS ####[facility] [address] [place] [address] lab Director: Wil Swanson MD Glucose,Whole Bloodon 2023 Glucose [Mass/Vol] 199 mg/dL High 75-110 [facility] Glucose [Mass/Vol] 197 mg/dL High 75-110 [facility] Glucose [Mass/Vol] 161 mg/dL High 75-110 [facility] Glucose [Mass/Vol] 148 mg/dL High 75-110 [facility] Guidance for puncture of Lum bar spineon 10-04-2024 MHPN RIS CONSOLIDATED PN RIS CONSOLIDATED [facility] Radiology Study observation (narrative) [facility] Guidance for puncture of Lum bar spineOrdered By: Faustino Hanna on 10-04-[address] [facility] Work Phone: IR LUMBAR PUNCTURE FOR DIAGN OSISon 10-04-2024 IR LUMBAR PUNCTURE FOR DIAGNOSIS Normal [facility] Meningitis Encephalitis Pane l CSF, Molecularon 10-04-2024 C. gattii+neoformans DNA MEETA+non-probe Ql (CSF) Not detected Not Detected [facility] CMV DNA MEETA+non-probe Ql (CSF) Not detected Not Detected [facility] E. coli K1 DNA MEETA+non-probe Ql (CSF) Not detected Not Detected [facility] Enterovirus RNA MEETA+non-probe Ql (CSF) Not detected Not Detected [facility] H. influenzae DNA MEETA+non-probe Ql (CSF) Not detected Not Detected [facility] HHV 6 DNA MEETA+non-probe Ql (CSF) Not detected Not Detected [facility] HSV 1 DNA MEETA+non-probe Ql (CSF) Not detected Not Detected [facility] HSV 2 DNA MEETA+non-probe Ql (CSF) Not detected Not Detected [facility] L. monocytogenes DNA MEETA+non-probe Ql (CSF) Not detected Not Detected [facility] N. meningitidis DNA EMETA+non-probe Ql (CSF) Not detected Not Detected [facility] Parechovirus A RNA MEETA+non-probe Ql (CSF) Not detected Not Detected [facility] S. agalactiae DNA MEETA+non-probe Ql (CSF) Not detected Not Detected [facility] S. pneumoniae DNA MEETA+non-probe Ql (CSF) Not detected Not Detected [facility] Specimen Description .CSF [facility] VZV DNA MEETA+non-probe Ql (CSF) Not detected Not Detected [facility] Meningitis Panelon 4 C. neoformans/gattii Not detected Normal [facility] Comment on above: Result Comment: Perf ormed by multiplexed nucleic acid assay. Performed By: #### C TP, MEVP, CFVD, CGLU, CFCNT ####[facility] [address] [place] [address]38 Lab Director: Ramiro Mark MD#### CHESTER MEADE ####[facility] [address]ix[address]fyh818 [place] [address] Lab Director: Wil Swanson MD Cytomegalovirus Not detected Normal [facility] Comment on above: Performed By: #### C TP, MEVP, CFVD, CGLU, CFCNT ####[facility] [address] [place] [address] Lab Director: Ramiro Mark MD#### CHESTER MEADE ####[facility] Ksvfwzbcyagg754 [place] [address] Lab Director: Wil Swanson MD Enterovirus Not detected Normal [facility] Comment on above: Performed By: #### C TP, MEVP, CFVD, CGLU, CFCNT ####[facility] [address] [place] [address] Lab Director: Ramiro Mark MD#### CHESTER MEADE ####[facility] In[address] [place] [address] Lab Director: Wil Swanson MD Escherichia coli K1 Not detected Normal [facility] Comment on above: Performed By: #### C TP, MEVP, CFVD, CGLU, CFCNT ####[facility] [address] [place] [address] 60937 Lab Director: Ramiro Mark MD#### CHESTER MEADE ####[facility] [address] [place] [address]308 Lab Director: Wil Swanson MD Haemoph. influenzae Not detected Normal [facility] Comment on above: Performed By: #### C TP, MEVP, CFVD, CGLU, CFCNT ####[address] [address] Lab Director: Ramiro Mark MD#### CHESTER MEADE ####[facility] [address]om[address] [place] [address] Lab Director: Wil Swanson MD HSV-1 Not detected Normal [facility] Comment on above: Performed By: #### C TP, MEVP, CFVD, CGLU, CFCNT ####[address] [address] Lab Director: Ramiro Mark MD#### CHESTER MEADE ####[facility] [address] [place] [address] Lab Director: Wil Swanson MD HSV-2 Not detected Normal [facility] Comment on above: Performed By: #### C TP, MEVP, CFVD, CGLU, CFCNT ####[facility] [address] [place] [address] 85278 Lab Director: Ramiro Mark MD#### ALYMCT, AWNCSF ####[facility] Mlgpgvbqxhci520 [place] [address] Lab Director: Wil Swanson MD Human herpesvirus 6 Not detected Normal [facility] Comment on above: Performed By: #### C TP, MEVP, CFVD, CGLU, CFCNT ####[facility] [address] [place] [address] Lab Director: Ramiro Mark MD#### REJI MEADENCSF ####[facility] [address] [place] [address] 51458 Lab Director: Wil Swanson MD Human parechovirus Not detected Normal [facility] Comment on above: Performed By: #### C TP, MEVP, CFVD, CGLU, CFCNT ####[place] [address] Lab Director: Ramiro Mark MD#### REJI MEADENCSF ####[facility] [address] [place] [address]160 Lab Director: Wil Swanson MD List. monocytogenes Not detected Normal [facility] Comment on above: Performed By: #### C TP, MEVP, CFVD, CGLU, CFCNT ####[address] [address] Lab Director: Ramiro Mark MD#### DESHAUN, REJINCSF ####[facility] [address] [place] [address]37 Lab Director: Wil Swanson MD Neis. meningitidis Not detected Normal [facility] Comment on above: Performed By: #### C TP, MEVP, CFVD, CGLU, CFCNT ####[facility] [address] [place] [address] Lab Director: Ramiro Mark MD#### ALYMCT, AWNCSF ####[facility] M[address]jj[address]hescp355 [place] [address] Lab Director: Wil Swanson MD Strep. agalactiae Not detected [facility] Comment on above: Performed By: #### C TP, MEVP, CFVD, CGLU, CFCNT ####[facility] [address]dzchu[address] [place] [address]13 Lab Director: Ramiro Mark MD#### ALYMCT, AWNCSF ####[facility] [address] [place] [address] [phone] Lab Director: Wil Swanson MD Strep. pneumoniae Not detected [facility] Comment on above: Performed By: #### C TP, MEVP, CFVD, CGLU, CFCNT ####[place] [address] Lab Director: Ramiro Mark MD#### ALYMCT, AWNCSF ####[facility] [address] [place] [address] [id number] Lab Director: Wil Swanson MD Varicella-zoster Not detected [facility] Comment on above: Performed By: #### C TP, MEVP, CFVD, CGLU, CFCNT ####[place] [address] Lab Director: Ramiro Mark MD#### ALYMCT, AWNCSF ####[facility] [address] [place] [address] [phone] Lab Director: Wil Swanson MD Source: .CSF [facility] Comment on above: Performed By: #### C TP, MEVP, CFVD, CGLU, CFCNT ####[facility] [address] [place] [address] 84390 Lab Director: Ramiro Mark MD#### ALYMCHUCK AWNCSF ####[facility] [address]ts[address] [place] [address] Lab Director: Wil Swanson MD Miscellaneouson 10-04-2024 Test Name ENC2 THORNTON Normal [facility] Comment on above: Performed By: #### C MIS1 ####[facility] [address]lj1972 [place] [address] Lab Director: Ramiro Mark MD No Panel Informationon 10-04 Interpretation and review of laboratory results Abnormal [facility] Oligoclonal Band Profileon 1 12-05-2023 Albumin Index - CSF 143.7 High <9.0 [facility] Comment on above: Performed By: #### O LIG ####[facility] [place], [place] [phone] Director: Ramiro Mark MD#### AOLIG ####[facility] [address]pxpvhx[address]n418 [place] [address] Lab Director: Wil Swanson MD Albumin, CSF 431 mg/L High 70-350 [facility] Comment on above: Performed By: #### O LIG ####[facility] [address]jh3215 [place] [address] Lab Director: Ramiro Mark MD#### AOLIG ####[facility] [address]ovqskgqg907 [place] [address] Lab Director: Wil Swanson MD IgG [Mass/Vol] 769 mg/dL Normal 700-1600 [facility] Comment on above: Performed By: #### O LIG ####[facility] Lbzjhzfszdsq5334 [place], [place] [phone] Director: Ramiro Mark MD#### AOLIG ####[facility] Syndcvb[address]own[address] [place], [place] [phone] Lab Director: Wil Swanson MD IgG Index, CSF 0.81 High <0.70 [facility] Comment on above: Performed By: #### O LIG ####[address] [address] Lab Director: Ramiro Mark MD#### AOLIG ####[address] [phone] Lab Director: Wil Swanson MD IgG Synthesis 18.0 mg/24 h High <3.3 [facility] Comment on above: Performed By: #### O LIG ####[place] [address] Lab Director: Ramiro Mark MD#### AOLIG ####[address] [phone] Lab Director: Wil Swanson MD IgG, CSF 9.0 mg/dL High 1.0-3.0 [facility] Comment on above: Performed By: #### O LIG ####[address] [address] Lab Director: Ramiro Mark MD#### AOLIG ####[address] [phone] Lab Director: Wil Swanson MD Oligoclonal Bands Oligoclonal bands ar e performed at [facility] using isoelectric focusing [facility] Comment on above: Result Comment: and immunofixation. Performed By: #### O LIG ####[place] [address] Lab Director: Ramiro Mark MD#### AOLIG ####[address] [address] Lab Director: Wil Swanson MD Albumin [Mass/Vol] 3.0 g/dL Low 3.5-5.2 [facility] Comment on above: Performed By: #### O LIG ####[facility] [address]j3472 [place] [address] Lab Director: Ramiro Mark MD#### AOLIG ####[facility] Oedcwxpnious109 [place] [address] Lab Director: Wil Swanson MD Oligoclonal Bandingon 2023 Albumin (CSF) [Mass/Vol] 431 mg/L High 70 - 350 mg/L [facility] Albumin [Mass/Vol] 3.0 g/dL Low 3.5 - 5.2 g/dL [facility] Albumin Index 143.7 High NINF - 9.[address] [facility] IgG (CSF) [Mass/Vol] 9.0 mg/dL High 1.0 - 3 .0 mg/dL [facility] IgG [Mass/Vol] 769 mg/dL 700 - 1600 mg/dL [facility] IgG Index, CSF 0.81 High NINF - 0.70 [facility] IgG Synthesis Rate, CSF 18.0 High NINF [facility] Interpretation and review of laboratory results Abnormal [facility] Oligo Bands Oligoclonal bands ar e performed at [facility] [employer] using isoelectric focusing and immunofixation. [facility] POC Glucose Fingerstickon Glucose [Mass/Vol] 199 mg/dL High 75 - 110 mg/dL [facility] Interpretation and review of laboratory results Abnormal [facility] Glucose [Mass/Vol] 197 mg/dL High 75 - 110 mg/dL [facility] Interpretation and review of laboratory results Abnormal [facility] Glucose [Mass/Vol] 161 mg/dL High 75 - 110 mg/dL [facility] Interpretation and review of laboratory results Abnormal [facility] Glucose [Mass/Vol] 148 mg/dL High 75 - 110 mg/dL [facility] Interpretation and review of laboratory results Abnormal [facility] PTon 10-04-2024 INR Coag (PPP) [Relative time] 1.1 {INR} Normal [facility] Comment on above: Result Comment: Ther apeutic Range: Moderate Anticoagulant Intensity: INR = 2.0-3.0 High Anticoagulant Intensity: INR = 2.5-3.5 Performed By: #### C DP, BMPX, PT ####[facility] [address] [place], [place] [id number] Lab Director: Ramiro Mark MD PT Coag (PPP) [Time] 13.6 s Normal 11.7-14.[address] [facility] Comment on above: Performed By: #### C DP, BMPX, PT ####[facility] [address] [place] [address] Lab Director: Ramiro Mark MD Protein, CSFon 10-04-2024 Protein (CSF) [Mass/Vol] 78.9 mg/dL High 15.0 - 45.0 mg/dL [facility] Protein, Total, CSFon 2023 Total Protein - CSF 78.9 mg/dL High 15.0-45.0 [facility] Comment on above: Performed By: #### C TP, MEVP, CFVD, CGLU, CFCNT ####[facility] Ondcaaogclcc[address] [place] [address] [phone] Lab Director: Ramiro Mark MD#### ABHINAVCT, AWNCSF ####[facility] [address] [place] [address] [id number] Lab Director: Wil Swanson MD Protime-INRon 10-04-[address] [facility] Surgical Pathology Reporton 10-04-2024 Surgical Pathology Report Normal [facility] B12/Folate Panelon Cobalamin (Vitamin B12) [Mass/Vol] 791 pg/mL Normal 232-1245 [facility] Comment on above: Performed By: #### A VITB1 ####[facility] [address] [place] [address] lab Director: Wil Swanson MD#### TREP, B12FOL ####[facility] [address]cv9204 [place] [address] lab Director: Ramiro Mark MD Folic Acid 11.5 ng/mL Normal 4.8-24.2 [facility] Comment on above: Performed By: #### A VITB1 ####[facility] [address]pmozw153 [place] [address] lab Director: Wil Swanson MD#### TREYlui, B12FOL ####[address] [id number] lab Director: Ramiro Mark MD Basic Metab w/rfx MGon 10-03 Anion gap [Moles/Vol] 11 mmol/L Normal 9-[address] [facility] Comment on above: Performed By: #### C DP, TSHX, BMPX ####[facility] [address] [place] [address] Lab Director: Ramiro Mark MD Calcium [Mass/Vol] 7.7 mg/dL Low 8.6-10.4 [facility] Comment on above: Performed By: #### C DP, TSHX, BMPX ####[facility] [address] [place] [address] Lab Director: Ramiro Mark MD Chloride [Moles/Vol] 104 mmol/L Normal 98-107 [facility] Comment on above: Performed By: #### C DP, TSHX, BMPX ####[facility] [address]ecmcktycvjc1448 [place] [address] Lab Director: Ramiro Mark MD CO2 [Moles/Vol] 20 mmol/L Normal 20-31 [facility] Comment on above: Performed By: #### C DP, TSHX, BMPX ####[facility] [address]ukojwqne1134 [place] [address] Lab Director: Ramiro Mark MD Creatinine [Mass/Vol] 1.9 mg/dL High 0.7-1.[address] [facility] Comment on above: Performed By: #### C DP, TSHX, BMPX ####[facility] [address] [place] [address] Lab Director: Ramiro Mark MD GFR/1.73 sq M.predicted among non-blacks MDRD (S/P/Bld) [Vol rate/Area] 42 mL/min/{1.73_m2} Low >60 [facility] Comment on above: Result Comment: Thes [...] Performed By: #### C DP, TSHX, BMPX ####[facility] [address] [place] [address] Lab Director: Ramiro Mark MD Glucose [Mass/Vol] 170 mg/dL High 74-99 [facility] Comment on above: Performed By: #### C DP, TSHX, BMPX ####[facility] [address] [place] [address] Lab Director: Ramiro Mark MD Potassium [Moles/Vol] 4.0 mmol/L Normal 3.7-5.[address] [facility] Comment on above: Performed By: #### C DP, TSHX, BMPX ####[facility] [address]zlu[address] [place] [address] Lab Director: Ramiro Mark MD Sodium [Moles/Vol] 135 mmol/L Low 136-145 [facility] Comment on above: Performed By: #### C DP, TSHX, BMPX ####[facility] [address]jx[address] [place], [place] [id number] Lab Director: Ramiro Mark MD Urea nitrogen [Mass/Vol] 42 mg/dL High 6-20 [facility] Comment on above: Performed By: #### C DP, TSHX, BMPX ####[facility] [address]zczsqmlqktt7759 [place], [place] [id number] lab Director: Ramiro Mark MD Basic Metabolic Panel w/ Ref jose to MGon 10-03-2024 Anion gap [Moles/Vol] 11 mmol/L 9 - 16 mmol/L [facility] Calcium [Mass/Vol] 7.7 mg/dL Low 8.6 - 10. 4 mg/dL [facility] Chloride [Moles/Vol] 104 mmol/L 98 - 10 7 mmol/L [facility] CO2 [Moles/Vol] 20 mmol/L 20 - 31 mmol/L [facility] Creatinine [Mass/Vol] 1.9 mg/dL High 0.7 - 1.2 mg/dL [facility] Est, Glom Filt Rate 42 Low - PINF [facility] Glucose [Mass/Vol] 170 mg/dL High 74 - 99 mg/dL [facility] Interpretation and review of laboratory results Abnormal [facility] Potassium [Moles/Vol] 4.0 mmol/L 3.7 - 5.3 mmol/L [facility] Sodium [Moles/Vol] 135 mmol/L Low 136 - 145 mmol/L [facility] Urea nitrogen [Mass/Vol] 42 mg/dL High 6 - 20 mg/dL [facility] CBC with Auto Differentialon 10-03-2024 Basophils (Bld) [#/Vol] 0.05 10*3/uL [facility] Basophils/100 WBC (Bld) 1 % 0 - 2 % [facility] Eosinophils (Bld) [#/Vol] 0.22 10*3/uL [facility] Eosinophils/100 WBC (Bld) 3 % 1 - 4 % [facility] Erythrocyte distribution width (RBC) [Ratio] 13.0 % 11.8 - 14.4 % [facility] Hematocrit (Bld) [Volume fraction] 26.8 % Low 40.7 - 50.3 % [facility] Hemoglobin (Bld) [Mass/Vol] 8.8 g/dL Low 13.0 - 17.0 g/dL [facility] Immature granulocytes (Bld) [#/Vol] 0.04 10*3/uL [facility] Immature granulocytes/100 WBC (Bld) 1 % High [address] [facility] Interpretation and review of laboratory results Abnormal [facility] Lymphocytes/100 WBC (Bld) 15 % Low 24 - 43 % [facility] Lymphocytes/100 WBC (Bld) 1.24 % [facility] MCH (RBC) [Entitic mass] 28.4 pg 25.2 - 33.[address] [facility] MCHC (RBC) [Mass/Vol] 32.8 g/dL 28.4 - 34.8 g/dL [facility] MCV (RBC) [Entitic vol] 86.5 fL 82.6 - 102.9 fL [facility] Monocytes/100 WBC (Bld) 8 % 3 - 12 % [facility] Monocytes/100 WBC (Bld) 0.71 % [facility] Neutrophils/100 WBC (Bld) 72 % High 36 - 65 % [facility] Nucleated RBC/100 WBC (Bld) [Ratio] 0.0 % 0.0 per [address] [facility] Platelet mean volume (Bld) [Entitic vol] 10.5 fL 8.1 - 13.[address] [facility] Platelets (Bld) [#/Vol] 193 10*3/uL [facility] RBC (Bld) [#/Vol] 3.10 10*6/uL Low 4.21 - 5.7 7 m/uL [facility] Segmented neutrophils/100 WBC (Bld) 6.32 % [facility] WBC other (Bld) [#/Vol] 8.6 [facility] CBC with Diffon 10-03-2024 Abs. Basophil 0.05 k/uL Normal 0.00-0.20 [facility] Comment on above: Performed By: #### C DP, TSHX, BMPX ####[facility] [address] [place] [address] Lab Director: Ramiro Mark MD Abs.Imm.Granulocyte 0.04 k/uL Normal 0.00-0.30 [facility] Comment on above: Performed By: #### C DP, TSHX, BMPX ####[facility] [address] [place] [address])[phone] Director: Ramiro Mark MD Abs.Neutrophil (Seg) 6.32 k/uL Normal 1.50-8.10 [facility] Comment on above: Performed By: #### C DP, TSHX, BMPX ####[address] [phone]([facility])[phone] Director: Ramiro Mark MD Basophils/100 WBC (Bld) 1 % Normal 0-2 [facility] Comment on above: Performed By: #### C DP, TSHX, BMPX ####[address] [address])[phone] Director: Ramiro Mark MD Eosinophils (Bld) [#/Vol] 0.22 10*3/uL Normal 0.00-0.44 [facility] Comment on above: Performed By: #### C DP, TSHX, BMPX ####[facility] [address] [place], [place] [address])[phone] Director: Ramiro Mark MD Eosinophils/100 WBC (Bld) 3 % Normal 1-4 [facility] Comment on above: Performed By: #### C DP, TSHX, BMPX ####[address] [address])[phone] Director: Ramiro Mark MD Erythrocyte distribution width (RBC) [Ratio] 13.0 % Normal 11.8-14.4 [facility] Comment on above: Performed By: #### C DP, TSHX, BMPX ####[facility] [address] [place] [address] [phone] Director: Ramiro Mark MD Hematocrit (Bld) [Volume fraction] 26.8 % Low 40.7-50.3 [facility] Comment on above: Performed By: #### C DP, TSHX, BMPX ####[facility] [address] [place] [address] [phone] Director: Ramiro Mark MD Hemoglobin (Bld) [Mass/Vol] 8.8 g/dL Low 13.0-17.0 [facility] Comment on above: Performed By: #### C DP, TSHX, BMPX ####[address] [address])[phone] Director: Ramiro Mark MD Immature granulocytes/100 WBC (Bld) 1 % High 0 [facility] Comment on above: Performed By: #### C DP, TSHX, BMPX ####[address] [phone] Director: Ramiro Mark MD Lymphocytes (Bld) [#/Vol] 1.24 10*3/uL Normal 1.10-3.70 [facility] Comment on above: Performed By: #### C DP, TSHX, BMPX ####[facility] [address] [place], [place] [phone] Director: Ramiro Mark MD Lymphocytes/100 WBC (Bld) 15 % Low 24-43 [facility] Comment on above: Performed By: #### C DP, TSHX, BMPX ####[facility] [address] [place], [place] [phone] Director: Ramiro Mark MD MCH (RBC) [Entitic mass] 28.4 pg Normal 25.2-33.5 [facility] Comment on above: Performed By: #### C DP, TSHX, BMPX ####[address] [phone] Director: Ramiro Mark MD MCHC (RBC) [Mass/Vol] 32.8 g/dL Normal 28.4-34.[address] [facility] Comment on above: Performed By: #### C DP, TSHX, BMPX ####[facility] [address] [place] [address] [phone] Director: Ramiro Mark MD MCV (RBC) [Entitic vol] 86.5 fL Normal 82.6-102.9 [facility] Comment on above: Performed By: #### C DP, TSHX, BMPX ####[address] [phone] Director: Ramiro Mark MD Monocytes (Bld) [#/Vol] 0.71 10*3/uL Normal 0.10-1.20 [facility] Comment on above: Performed By: #### C DP, TSHX, BMPX ####[address] [phone] Director: Ramiro Mark MD Monocytes/100 WBC (Bld) 8 % Normal 3-12 [facility] Comment on above: Performed By: #### C DP, TSHX, BMPX ####[facility] [address] [place] [address] [phone] Director: Ramiro Mark MD Neutrophil (Seg) 72 % High 36-65 [facility] Comment on above: Performed By: #### C DP, TSHX, BMPX ####[facility] [address] [place] [address] [phone])[phone] Director: Ramiro Mark MD NRBC Automated 0.0 per 100 WBC Normal 0.0 [facility] Comment on above: Performed By: #### C DP, TSHX, BMPX ####[facility] [address] [place] [address] Lab Director: Ramiro Mark MD Platelet mean volume (Bld) [Entitic vol] 10.5 fL Normal 8.1-13.5 [facility] Comment on above: Performed By: #### C DP, TSHX, BMPX ####[facility] [address] [place] [address] [phone] Director: Ramiro Mark MD Platelets (Bld) [#/Vol] 193 10*3/uL Normal 138-453 [facility] Comment on above: Performed By: #### C DP, TSHX, BMPX ####[address] [phone] Director: Ramiro Mark MD RBC (Bld) [#/Vol] 3.10 10*6/uL Low 4.21-5.77 [facility] Comment on above: Performed By: #### C DP, TSHX, BMPX ####[facility] [address] [place] [address] [phone] Director: Ramiro Mark MD WBC (Bld) [#/Vol] 8.6 10*3/uL Normal 3.5-11.3 [facility] Comment on above: Performed By: #### C DP, TSHX, BMPX ####[facility] [address] [place] [address] Lab Director: Ramiro Mark MD Cult, Bloodon 10-03-2024 Cult, Blood Specimen Description .BLOOD Special Requests 20ML RIGHT WRIST Culture NO GROWTH 5 DAYS Report Status FINAL 10/03/2024 Normal [facility] Comment on above: Performed By: #### L ACTIC #### [facility] [address] [place] [address] Retail Salesworker: Ramiro Santillan MD Glucose,Whole Bloodon 2023 Glucose [Mass/Vol] 190 mg/dL High 75-110 [facility] Glucose [Mass/Vol] 163 mg/dL High -110 [facility] Glucose [Mass/Vol] 88 mg/dL Normal 75-110 [facility] Glucose [Mass/Vol] 133 mg/dL High 75-110 [facility] No Panel Informationon 10-03 [facility] Nuclear stress test with marcio cardial perfusionOrdered By: Ludmila Rushing on 10-03-2024 Baseline Diastolic BP 110 mmHg [employer] Phone: Baseline HR 76 BPM [employer] Phone: Baseline Systolic BP 183 mmHg [employer] Phone: Body surface area Derived from formula 2 m2 [employer] Work Phone: Stress Diastolic BP 110 mmHg Bon [employer] Phone: Stress Estimated Workload 1.0 METS [employer] Phone: Stress Peak HR 83 BPM Sharon Bernabe s [employer] Phone: Stress Percent HR Achieved 49 % [employer] Phone: Stress Rate Pressure Product 37681 BPM*mmHg [employer] Work Phone: Stress Systolic BP 183 mmHg Bon [employer] Work Phone: Stress Target HR 170 bpm Bon [employer] Work Phone: [employer] Phone: Nuclear stress test with marcio cardial perfusionon 10-03-2024 [facility] CV RPACS STRESS [facility] CV RPACS STRESS Radiology Study observation (narrative) [facility] POC Glucose Fingerstickon Glucose [Mass/Vol] 190 mg/dL High 75 - 110 mg/dL [facility] Interpretation and review of laboratory results Abnormal [facility] Glucose [Mass/Vol] 163 mg/dL High 75 - 110 mg/dL [facility] Interpretation and review of laboratory results Abnormal [facility] Glucose [Mass/Vol] 88 mg/dL 75 - 110 mg/dL [facility] Glucose [Mass/Vol] 133 mg/dL High 75 - 110 mg/dL [facility] Interpretation and review of laboratory results Abnormal [facility] T. PALLIDUM ABon 10-03-2024 T. pallidum Ab IA Ql (S) Non-Reactive NONREACTIVE [facility] T.pallidum Ab Screenon 10-03 T.pallidum Ab Screen Non-Reactive Normal NR [facility] Comment on above: Result Comment: T. p allidum antibodies are not detected.There is no serological evidence of infection with T. pallidum (early primary syphilis cannot be excluded). Retest in 2-4 weeks if syphilis is clinically suspect. Performed By: #### A VITB1 ####[facility] [address] [place] [address] Lab Director: Wil Swanson MD#### TREP, B12FOL ####[facility] [address] [place] [address] [phone] Lab Director: Ramiro Mark MD TSH reflex to FT4on 10-03-20 24 TSH Qn 1.19 m[IU]/L [facility] TSH w/reflex to FT4on 2023 Thyroid Stim. Horm. 1.19 uIU/mL Normal 0.27-4.20 [facility] Comment on above: Performed By: #### C DP, TSHX, BMPX ####[facility] [address] [place], [place] [phone] Lab Director: Ramiro Mark MD Vitamin B12 & Folateon 10-03 Cobalamin (Vitamin B12) [Mass/Vol] 791 pg/mL 232 - 1245 pg/mL [facility] Folate [Mass/Vol] 11.5 ng/mL 4.8 - 24.2 ng/mL [facility] CLAUDIO Screen w/reflexon 2023 CLAUDIO Screen Negative Normal NEG [facility] Comment on above: Performed By: #### F KLLC, PE, ANAX, PHEP, MG, CHELO, BMP ####[facility] [address] [place], [place] [phone] Lab Director: Ramiro Mark MD Anti-dsDNA 0.6 IU/mL Normal <10.0 [facility] Comment on above: Result Comment: Refe rence Range:<10.0 Zcjojeqi43.0-15.0 Equivocal>15.0 Positive Performed By: #### F KLLC, PE, ANAX, PHEP, MG, CHELO, BMP ####[facility] [address] [place] [address] [phone] Lab Director: Ramiro Mark MD KIM Screen 0.2 U/mL Normal <0.7 [facility] Comment on above: Result Comment: Refe rence Range:<0.7 Negative0.7-1.0 Equivocal>1.0 PositiveENA Screen includes U1RNP,RNP70,Sm,Ro(SS-A),La(SS-B),CENP,Scl-70,Debbi-1 Performed By: #### F KLLC, PE, ANAX, PHEP, MG, CHELO, BMP ####[facility] [address] [place] [address] lab Director: Ramiro Mark MD CLAUDIO Screen with Reflexon DNA double strand IgG IA Ql (S) 0.[address] [facility] Nuclear Ab IA Ql (S) Negative NEGATIVE [facility] Nuclear IgG IA (S) [Ratio] 0.2 U/mL NINF - 0.7 U/mL [facility] [employer] Basic Metab w/rfx MGon 10-02 Anion gap [Moles/Vol] 9 mmol/L Normal 9-[address] [facility] Comment on above: Performed By: #### C DP, BMPX ####[facility] [address] [place], [place] [phone] Director: Ramiro Mark MD Calcium [Mass/Vol] 8.0 mg/dL Low 8.6-10.4 [facility] Comment on above: Performed By: #### C DP, BMPX ####[facility] [address] [place], [place] [phone] Director: Ramiro Mark MD Chloride [Moles/Vol] 110 mmol/L High 98-107 [facility] Comment on above: Performed By: #### C DP, BMPX ####[facility] [address] [place] [address] [phone] Director: Ramiro Mark MD CO2 [Moles/Vol] 22 mmol/L Normal 20-31 [facility] Comment on above: Performed By: #### C DP, BMPX ####[facility] [address] [place], [place] [phone] Director: Ramiro Mark MD Creatinine [Mass/Vol] 2.1 mg/dL High 0.7-1.[address] [facility] Comment on above: Performed By: #### C DP, BMPX ####[facility] [address] [place] [address] [phone] Director: Ramiro Mark MD GFR/1.73 sq M.predicted among non-blacks MDRD (S/P/Bld) [Vol rate/Area] 38 mL/min/{1.73_m2} Low >60 [facility] Comment on above: Result Comment: Thes [...] Performed By: #### C DP, BMPX ####[facility] [address] [place], [place] [address])[phone] Director: Ramiro Mark MD Glucose [Mass/Vol] 80 mg/dL Normal 74-99 [facility] Comment on above: Performed By: #### C DP, BMPX ####[facility] [address]sam[address]vbzphm[address] [place], [place] [address])[phone] Director: Ramiro Mark MD Potassium [Moles/Vol] 3.8 mmol/L Normal 3.7-5.[address] [facility] Comment on above: Performed By: #### C DP, BMPX ####[facility] [address] [place] [address])[phone] Director: Ramiro Mark MD Sodium [Moles/Vol] 141 mmol/L Normal 136-145 [facility] Comment on above: Performed By: #### C DP, BMPX ####[facility] [address] [place] [address] Lab Director: Ramiro Mark MD Urea nitrogen [Mass/Vol] 41 mg/dL High 6-20 [facility] Comment on above: Performed By: #### C DP, BMPX ####[facility] [address]ws[address] [place], [place] [address])[phone] Director: Ramiro Mark MD Basic Metabolic Panel w/ Ref jose to MGon 10-02-2024 Anion gap [Moles/Vol] 9 mmol/L 9 - 16 mmol/L [facility] Calcium [Mass/Vol] 8.0 mg/dL Low 8.6 - 10. 4 mg/dL [facility] Chloride [Moles/Vol] 110 mmol/L High 98 - 10 7 mmol/L [facility] CO2 [Moles/Vol] 22 mmol/L 20 - 31 mmol/L [facility] Creatinine [Mass/Vol] 2.1 mg/dL High 0.7 - 1.2 mg/dL [facility] Est, Glom Filt Rate 38 Low - PINF [facility] Glucose [Mass/Vol] 80 mg/dL 74 - 99 mg/dL [facility] Interpretation and review of laboratory results Abnormal [facility] Potassium [Moles/Vol] 3.8 mmol/L 3.7 - 5.3 mmol/L [facility] Sodium [Moles/Vol] 141 mmol/L 136 - 145 mmol/L [facility] Urea nitrogen [Mass/Vol] 41 mg/dL High 6 - 20 mg/dL [facility] CBC with Auto Differentialon 10-02-2024 Basophils (Bld) [#/Vol] [facility] Basophils/100 WBC (Bld) 0 % 0 - 2 % [facility] Eosinophils (Bld) [#/Vol] 0.12 10*3/uL [facility] Eosinophils/100 WBC (Bld) 2 % 1 - 4 % [facility] Erythrocyte distribution width (RBC) [Ratio] 13.4 % 11.8 - 14.4 % [facility] Hematocrit (Bld) [Volume fraction] 25.8 % Low 40.7 - 50.3 % [facility] Hemoglobin (Bld) [Mass/Vol] 8.4 g/dL Low 13.0 - 17.0 g/dL [facility] Immature granulocytes (Bld) [#/Vol] 0.03 10*3/uL [facility] Immature granulocytes/100 WBC (Bld) 0 % [address] [facility] Interpretation and review of laboratory results Abnormal [facility] Lymphocytes/100 WBC (Bld) 10 % Low 24 - 43 % [facility] Lymphocytes/100 WBC (Bld) 0.79 % Low [facility] MCH (RBC) [Entitic mass] 28.6 pg 25.2 - 33.[address] [facility] MCHC (RBC) [Mass/Vol] 32.6 g/dL 28.4 - 34.8 g/dL [facility] MCV (RBC) [Entitic vol] 87.8 fL 82.6 - 102.9 fL [facility] Monocytes/100 WBC (Bld) 9 % 3 - 12 % [facility] Monocytes/100 WBC (Bld) 0.70 % [facility] Neutrophils/100 WBC (Bld) 79 % High 36 - 65 % [facility] Nucleated RBC/100 WBC (Bld) [Ratio] 0.0 % 0.0 per 100 WBC [facility] Platelet mean volume (Bld) [Entitic vol] 10.6 fL 8.1 - 13.5 fL [facility] Platelets (Bld) [#/Vol] 180 10*3/uL [facility] RBC (Bld) [#/Vol] 2.94 10*6/uL Low 4.21 - 5.7 7 m/uL [facility] [employer] Segmented neutrophils/100 WBC (Bld) 6.31 % [facility] WBC other (Bld) [#/Vol] 8.0 [facility] CBC with Diffon 10-02-2024 Abs. Basophil <0.03 Normal 0.00-0.20 [facility] Comment on above: Performed By: #### C DP, BMPX ####[facility] [address] [place] [address] Lab Director: Ramiro Mark MD Abs.Imm.Granulocyte 0.03 k/uL Normal 0.00-0.30 [facility] Comment on above: Performed By: #### C DP, BMPX ####[facility] [address] [place] [address] Lab Director: Ramiro Mark MD Abs.Neutrophil (Seg) 6.31 k/uL Normal 1.50-8.10 [facility] Comment on above: Performed By: #### C DP, BMPX ####[facility] [address]abs[address]xxgp3487 [place] [address] Lab Director: Ramiro Mark MD Basophils/100 WBC (Bld) 0 % Normal 0-2 [facility] Comment on above: Performed By: #### C DP, BMPX ####[address] [address])[phone] Director: Ramiro Mark MD Eosinophils (Bld) [#/Vol] 0.12 10*3/uL Normal 0.00-0.44 [facility] Comment on above: Performed By: #### C DP, BMPX ####[address] [address])[phone] Director: Ramiro Mark MD Eosinophils/100 WBC (Bld) 2 % Normal 1-4 [facility] Comment on above: Performed By: #### C DP, BMPX ####[place], [place] [address])[phone] Director: Ramiro Mark MD Erythrocyte distribution width (RBC) [Ratio] 13.4 % Normal 11.8-14.4 [facility] Comment on above: Performed By: #### C DP, BMPX ####[place], [place] [address])[phone] Director: Ramiro Mark MD Hematocrit (Bld) [Volume fraction] 25.8 % Low 40.7-50.3 [facility] Comment on above: Performed By: #### C DP, BMPX ####[place], [place] [address])[phone] Director: aRmiro Mark MD Hemoglobin (Bld) [Mass/Vol] 8.4 g/dL Low 13.0-17.0 [facility] Comment on above: Performed By: #### C DP, BMPX ####[facility] [address] [place] [address])[phone] Director: Ramiro Mark MD Immature granulocytes/100 WBC (Bld) 0 % Normal 0 [facility] Comment on above: Performed By: #### C DP, BMPX ####[facility] [address] [place], [place] [address])[phone] Director: Ramiro Mark MD Lymphocytes (Bld) [#/Vol] 0.79 10*3/uL Low 1.10-3.70 [facility] Comment on above: Performed By: #### C DP, BMPX ####[place], [place] [address])[phone] Director: Ramiro Mark MD Lymphocytes/100 WBC (Bld) 10 % Low 24-43 [facility] Comment on above: Performed By: #### C DP, BMPX ####[place], [place] [address])[phone] Director: Ramiro Mark MD MCH (RBC) [Entitic mass] 28.6 pg Normal 25.2-33.5 [facility] Comment on above: Performed By: #### C DP, BMPX ####[place], [place] [address])[phone] Director: Ramiro Mark MD MCHC (RBC) [Mass/Vol] 32.6 g/dL Normal 28.4-34.[address] [facility] Comment on above: Performed By: #### C DP, BMPX ####[place], [place] [address])[phone] Director: Ramiro Mark MD MCV (RBC) [Entitic vol] 87.8 fL Normal 82.6-102.9 [facility] Comment on above: Performed By: #### C DP, BMPX ####[place], [place] [address])[phone] Director: Ramiro Mark MD Monocytes (Bld) [#/Vol] 0.70 10*3/uL Normal 0.10-1.20 [facility] Comment on above: Performed By: #### C DP, BMPX ####[facility] [address] [place], [place] [phone] Director: Ramiro Mark MD Monocytes/100 WBC (Bld) 9 % Normal 3-12 [facility] Comment on above: Performed By: #### C DP, BMPX ####[address] [phone] Director: Ramiro Mark MD Neutrophil (Seg) 79 % High 36-65 [facility] Comment on above: Performed By: #### C DP, BMPX ####[address] [phone])[phone] Director: Ramiro Mark MD NRBC Automated 0.0 per 100 WBC Normal 0.0 [facility] Comment on above: Performed By: #### C DP, BMPX ####[address] [phone])[phone] Director: Ramiro Mark MD Platelet mean volume (Bld) [Entitic vol] 10.6 fL Normal 8.1-13.5 [facility] Comment on above: Performed By: #### C DP, BMPX ####[address] [phone] Director: Ramiro Mark MD Platelets (Bld) [#/Vol] 180 10*3/uL Normal 138-453 [facility] Comment on above: Performed By: #### C DP, BMPX ####[facility] [address] [place] [address] Lab Director: Ramiro Mark MD RBC (Bld) [#/Vol] 2.94 10*6/uL Low 4.21-5.77 [facility] Comment on above: Performed By: #### C DP, BMPX ####[address] [phone] lab Director: Ramiro Mark MD WBC (Bld) [#/Vol] 8.0 10*3/uL Normal 3.5-11.3 [facility] Comment on above: Performed By: #### C DP, BMPX ####[facility] [address]rntpwy50[address] [place], [place] [phone] lab Director: Ramiro Mark MD Glucose,Whole Bloodon 2023 Glucose [Mass/Vol] 224 mg/dL High 75-110 [facility] Glucose [Mass/Vol] 219 mg/dL High 75-110 [facility] Glucose [Mass/Vol] 211 mg/dL High 75-110 [facility] Glucose [Mass/Vol] 175 mg/dL High 75-110 [facility] Glucose [Mass/Vol] 81 mg/dL Normal 75-110 [facility] POC Glucose Fingerstickon Glucose [Mass/Vol] 224 mg/dL High 75 - 110 mg/dL [facility] Interpretation and review of laboratory results Abnormal [facility] Glucose [Mass/Vol] 219 mg/dL High 75 - 110 mg/dL [facility] Interpretation and review of laboratory results Abnormal [facility] Glucose [Mass/Vol] 211 mg/dL High 75 - 110 mg/dL [facility] Interpretation and review of laboratory results Abnormal [facility] Glucose [Mass/Vol] 175 mg/dL High 75 - 110 mg/dL [facility] Interpretation and review of laboratory results Abnormal [facility] Glucose [Mass/Vol] 81 mg/dL 75 - 110 mg/dL [facility] Prot. Electrophoresis, Uron 10-02-2024 Pathologist Review: ELECTRONICALLY ALEX LACY M.D. Normal [facility] Comment on above: Performed By: #### U RCL, URNA, UPE, URTPRT ####[employer] [address] [place] [address] Lab Director: Ramiro Mark MD Ur.-Prot.Elect-Inter Elevated protein concentration. Most serum proteins are detected in Normal [facility] Comment on above: Result Comment: this urine. Usually observed with markedly increased nonselectiveglomerular permaeabilty (severe glomerular disease) and/orcontamination of urine with blood. A decrease in tubular functioncannot be ruled out. Performed By: #### U RCL, URNA, UPE, URTPRT ####[employer] [address] [place] [address] lab Director: Ramiro Mark MD Protein Electrophoresis, Uri neon 10-02-2024 P E Interpretation, U Elevated protein concentration. Most serum proteins are detected in [facility] Pathologist ELECTRONICALLY ALEX LACY M.D. [facility] Protein (U) [Mass/Vol] 100 mg/dL Trip [facility] Specimen type Nom (Spec) .URINE [facility] Arterial Bld Gas,POCon 10-01 FIO2 30.0 Normal [facility] HCO3 (Bld) [Moles/Vol] 25.1 mmol/L Normal 21.0-28.0 [facility] O2 Device Adult Ventilator Normal [facility] Oxygen saturation in Blood 99.4 % High 94.0-98.0 [facility] pCO2, Arterial 33.7 mm Hg Low 35.0-48.0 [facility] pH, Arterial 7.480 High 7.350-7.450 [facility] pO2, Arterial 143.0 mm Hg High 83.0-108.0 [facility] Positive Base Excess (calc) 1.5 mmol/L Normal 0.0-3.0 [facility] Site Drawn Right Radial Artery Normal [facility] Arterial Blood Gas, POCon FIO2 30.[address] [facility] HCO3 (Bld) [Moles/Vol] 25.1 mmol/L 21.0 - 28.0 mmol/L [facility] [employer] O2 Delivery Device Adult Ventilator [facility] Oxygen saturation in Blood 99.4 % High 94.0 - 98.0 % [facility] [employer] POC pCO2 33.[address] [facility] POC pH 7.480 High 7.350 - 7.[address] [facility] POC PO2 143.[address] [facility] Positive Base Excess, Art 1.5 mmol/L 0.0 - 3.0 mmol/L [facility] Sample Site Right Radial Artery [facility] Basic Metab w/rfx MGon 10-01 Anion gap [Moles/Vol] 8 mmol/L Low 9-[address] [facility] Comment on above: Performed By: #### C DP, BMPX, LIPR ####[facility] [address] [place], [place] [address])[phone] Director: Ramiro Mark MD Calcium [Mass/Vol] 8.1 mg/dL Low 8.6-10.4 [facility] Comment on above: Performed By: #### C DP, BMPX, LIPR ####[facility] [address] [place], [place] [address])[phone] Director: Ramiro Mark MD Chloride [Moles/Vol] 108 mmol/L High 98-107 [facility] Comment on above: Performed By: #### C DP, BMPX, LIPR ####[facility] [address]qkuhk[address] [place] [address] Lab Director: Ramiro Mark MD CO2 [Moles/Vol] 23 mmol/L Normal 20-31 [facility] Comment on above: Performed By: #### C DP, BMPX, LIPR ####[facility] [address]is[address] [place] [address] Lab Director: Ramiro Mark MD Creatinine [Mass/Vol] 2.3 mg/dL High 0.7-1.[address] [facility] Comment on above: Performed By: #### C DP, BMPX, LIPR ####[facility] [address] [place] [address] Lab Director: Ramiro Mark MD GFR/1.73 sq M.predicted among non-blacks MDRD (S/P/Bld) [Vol rate/Area] 34 mL/min/{1.73_m2} Low >60 [facility] Comment on above: Result Comment: Thes [...] Performed By: #### C DP, BMPX, LIPR ####[facility] [address] [place] [address])[phone] Director: Ramiro Mark MD Glucose [Mass/Vol] 180 mg/dL High 74-99 [facility] Comment on above: Performed By: #### C DP, BMPX, LIPR ####[facility] [address] [place] [address])[phone] Director: Ramiro Mark MD Potassium [Moles/Vol] 4.0 mmol/L Normal 3.7-5.[address] [facility] Comment on above: Performed By: #### C DP, BMPX, LIPR ####[facility] [address]jugax8[address] [place] [address] Lab Director: Ramiro Mark MD Sodium [Moles/Vol] 139 mmol/L Normal 136-145 [facility] Comment on above: Performed By: #### C DP, BMPX, LIPR ####[facility] [address] [place], [place] [phone] Director: Ramiro Mark MD Urea nitrogen [Mass/Vol] 46 mg/dL High 6-20 [facility] Comment on above: Performed By: #### C DP, BMPX, LIPR ####[facility] [address] [place] [address] lab Director: Ramiro Mark MD Basic Metabolic Panel w/ Ref jose to MGon 10-01-2024 Anion gap [Moles/Vol] 8 mmol/L Low 9 - 16 mmol/L [facility] Calcium [Mass/Vol] 8.1 mg/dL Low 8.6 - 10. 4 mg/dL [facility] Chloride [Moles/Vol] 108 mmol/L High 98 - 10 7 mmol/L [facility] CO2 [Moles/Vol] 23 mmol/L 20 - 31 mmol/L [facility] Creatinine [Mass/Vol] 2.3 mg/dL High 0.7 - 1.2 mg/dL [facility] Est, Glom Filt Rate 34 Low - PINF [facility] Glucose [Mass/Vol] 180 mg/dL High 74 - 99 mg/dL [facility] Interpretation and review of laboratory results Abnormal [facility] Potassium [Moles/Vol] 4.0 mmol/L 3.7 - 5.3 mmol/L [facility] Sodium [Moles/Vol] 139 mmol/L 136 - 145 mmol/L [facility] Urea nitrogen [Mass/Vol] 46 mg/dL High 6 - 20 mg/dL [facility] CBC with Auto Differentialon 10-01-2024 Basophils (Bld) [#/Vol] 0.03 10*3/uL [facility] Basophils/100 WBC (Bld) 0 % 0 - 2 % [facility] Eosinophils (Bld) [#/Vol] 0.15 10*3/uL [facility] Eosinophils/100 WBC (Bld) 2 % 1 - 4 % [facility] Erythrocyte distribution width (RBC) [Ratio] 13.3 % 11.8 - 14.4 % [facility] Hematocrit (Bld) [Volume fraction] 26.0 % Low 40.7 - 50.3 % [facility] Hemoglobin (Bld) [Mass/Vol] 8.3 g/dL Low 13.0 - 17.0 g/dL [facility] Immature granulocytes (Bld) [#/Vol] 0.03 10*3/uL [facility] Immature granulocytes/100 WBC (Bld) 0 % [address] [facility] Interpretation and review of laboratory results Abnormal [facility] Lymphocytes/100 WBC (Bld) 16 % Low 24 - 43 % [facility] Lymphocytes/100 WBC (Bld) 1.14 % [facility] MCH (RBC) [Entitic mass] 28.7 pg 25.2 - 33.[address] [facility] MCHC (RBC) [Mass/Vol] 31.9 g/dL 28.4 - 34.8 g/dL [facility] MCV (RBC) [Entitic vol] 90.0 fL 82.6 - 102.[address] [facility] Monocytes/100 WBC (Bld) 8 % 3 - 12 % [facility] Monocytes/100 WBC (Bld) 0.58 % [facility] Neutrophils/100 WBC (Bld) 74 % High 36 - 65 % [facility] Nucleated RBC/100 WBC (Bld) [Ratio] 0.0 % 0.0 per [address] [facility] Platelet mean volume (Bld) [Entitic vol] 10.9 fL 8.1 - 13.[address] [facility] Platelets (Bld) [#/Vol] 180 10*3/uL [facility] RBC (Bld) [#/Vol] 2.89 10*6/uL Low 4.21 - 5.7 7 m/uL [facility] Segmented neutrophils/100 WBC (Bld) 5.40 % [facility] WBC other (Bld) [#/Vol] 7.3 [facility] CBC with Diffon 10-01-2024 Abs. Basophil 0.03 k/uL Normal 0.00-0.20 [facility] Comment on above: Performed By: #### C DP, BMPX, LIPR ####[address] [phone] Director: Ramiro Mark MD Abs.Imm.Granulocyte 0.03 k/uL Normal 0.00-0.30 [facility] Comment on above: Performed By: #### C DP, BMPX, LIPR ####[address] [phone] Director: Ramiro Mark MD Abs.Neutrophil (Seg) 5.40 k/uL Normal 1.50-8.10 [facility] Comment on above: Performed By: #### C DP, BMPX, LIPR ####[place], [place] [address])[phone] Director: Ramiro Mark MD Basophils/100 WBC (Bld) 0 % Normal 0-2 [facility] Comment on above: Performed By: #### C DP, BMPX, LIPR ####[place], [place] [address])[phone] Director: Ramiro Mark MD Eosinophils (Bld) [#/Vol] 0.15 10*3/uL Normal 0.00-0.44 [facility] Comment on above: Performed By: #### C DP, BMPX, LIPR ####[address] [address])[phone] Director: Ramiro Mark MD Eosinophils/100 WBC (Bld) 2 % Normal 1-4 [facility] Comment on above: Performed By: #### C DP, BMPX, LIPR ####[place], [place] [address])[phone] Director: Ramiro Mark MD Erythrocyte distribution width (RBC) [Ratio] 13.3 % Normal 11.8-14.4 [facility] Comment on above: Performed By: #### C DP, BMPX, LIPR ####[place], [place] [address])[phone] Director: Ramiro Mark MD Hematocrit (Bld) [Volume fraction] 26.0 % Low 40.7-50.3 [facility] Comment on above: Performed By: #### C DP, BMPX, LIPR ####[address] [address])[phone] Director: Ramiro Mark MD Hemoglobin (Bld) [Mass/Vol] 8.3 g/dL Low 13.0-17.0 [facility] Comment on above: Performed By: #### C DP, BMPX, LIPR ####[place], [place] [address])[phone] Director: Ramiro Mark MD Immature granulocytes/100 WBC (Bld) 0 % Normal 0 [facility] Comment on above: Performed By: #### C DP, BMPX, LIPR ####[place], [place] [address])[phone] Director: Ramiro Mark MD Lymphocytes (Bld) [#/Vol] 1.14 10*3/uL Normal 1.10-3.70 [facility] Comment on above: Performed By: #### C DP, BMPX, LIPR ####[place], [place] [address])[phone] Director: Ramiro Mark MD Lymphocytes/100 WBC (Bld) 16 % Low 24-43 [facility] Comment on above: Performed By: #### C DP, BMPX, LIPR ####[facility] [address] [place], [place] [address])[phone] Director: Ramiro Mark MD MCH (RBC) [Entitic mass] 28.7 pg Normal 25.2-33.5 [facility] Comment on above: Performed By: #### C DP, BMPX, LIPR ####[facility] [address] [place], [place] [phone] Director: Ramiro Mark MD MCHC (RBC) [Mass/Vol] 31.9 g/dL Normal 28.4-34.[address] [facility] Comment on above: Performed By: #### C DP, BMPX, LIPR ####[facility] [address] [place] [address] [phone] Director: Ramiro Mark MD MCV (RBC) [Entitic vol] 90.0 fL Normal 82.6-102.9 [facility] Comment on above: Performed By: #### C DP, BMPX, LIPR ####[address] [phone])[phone] Director: Ramiro Mark MD Monocytes (Bld) [#/Vol] 0.58 10*3/uL Normal 0.10-1.20 [facility] Comment on above: Performed By: #### C DP, BMPX, LIPR ####[address] [phone])[phone] Director: Ramiro Mark MD Monocytes/100 WBC (Bld) 8 % Normal 3-12 [facility] Comment on above: Performed By: #### C DP, BMPX, LIPR ####[address] [id number])[phone] Director: Ramiro Mark MD Neutrophil (Seg) 74 % High 36-65 [facility] Comment on above: Performed By: #### C DP, BMPX, LIPR ####[facility] [address] [place] [address] [phone])[phone] Director: Ramiro Mark MD NRBC Automated 0.0 per 100 WBC Normal 0.0 [facility] Comment on above: Performed By: #### C DP, BMPX, LIPR ####[facility] [address] [place] [address] [phone] Director: Ramiro Mark MD Platelet mean volume (Bld) [Entitic vol] 10.9 fL Normal 8.1-13.5 [facility] Comment on above: Performed By: #### C DP, BMPX, LIPR ####[facility] [address] [place], [place] [phone] Director: Ramiro Mark MD Platelets (Bld) [#/Vol] 180 10*3/uL Normal 138-453 [facility] Comment on above: Performed By: #### C DP, BMPX, LIPR ####[facility] [address] [place], [place] [phone])[phone] Director: Ramiro Mark MD RBC (Bld) [#/Vol] 2.89 10*6/uL Low 4.21-5.77 [facility] Comment on above: Performed By: #### C DP, BMPX, LIPR ####[facility] [address] [place], [place] [phone] Director: Ramiro Mark MD WBC (Bld) [#/Vol] 7.3 10*3/uL Normal 3.5-11.3 [facility] Comment on above: Performed By: #### C DP, BMPX, LIPR ####[facility] [address]sw[address] [place], [place] [phone])[phone] Director: Ramiro Mark MD Calcium, Ionicon 10-01-2024 Calcium [Moles/Vol] 1.13 mmol/L Normal 1.13-1.33 [facility] Comment on above: Performed By: #### I OCAL ####[facility] [address] [place] [address] [phone] Director: Ramiro Mark MD Calcium, Ionizedon Calcium.ionized (Bld) [Moles/Vol] 1.13 mmol/L 1.13 - 1.33 mmol/L [facility] Cult,Bloodon 10-01-2024 Cult,Blood Specimen Description .BLOOD Special [...] to and read back by:YECENIA JOHNSON RN, [facility], 09/29/24 0745, RB DJR Report Status FINAL 10/20/2024 SUSCEPTIBILITY Organism ENTEROCOCCUS AVIUM Method MARINE Ampicillin <=2 SUSCEPTIBLE Gentamicin,High Level SUSCEPTIBLE Streptomycin,Hi Level SUSCEPTIBLE Vancomycin <=0.5 SUSCEPTIBLE Susceptible [facility] Comment on above: Performed By: #### L ACTIC #### [facility] [address] [place] [address] Retail Salesworker: Ramiro Santillan MD Electrophoresis Protein, Ser on 10-01-2024 Albumin % 55 % 45 - 65 % [facility] Albumin [Mass/Vol] 2.3 g/dL Low 3.2 - 5.2 g/dL [facility] Alpha 1 globulin Elph [Mass/Vol] 0.2 g/dL 0.1 - 0.4 g/dL Bon [facility] Alpha 1 globulin Elph [Mass/Vol] 5 % 3 - 6 % [facility] Alpha 2 % 15 % High 6 - 13 % [facility] Alpha 2 globulin Elph [Mass/Vol] 0.6 g/dL 0.5 - 0.9 g/dL [facility] Beta globulin Elph [Mass/Vol] 0.6 g/dL 0.5 - 1.1 g/dL [facility] Beta globulin Elph [Mass/Vol] 13 % 11 - 19 % [facility] Gamma Globulin % 12 % 9 - 20 % [facility] Gamma globulin Elph [Mass/Vol] 0.5 g/dL 0.5 - 1.5 g/dL [facility] Interpretation and review of laboratory results Abnormal [facility] Pathologist Cyto stain Nom (Cvx/Vag) [ID] ELECTRONICALLY SIGNED. DARLEEN LACY M.D. [facility] Protein [Mass/Vol] 4.2 g/dL Low 6.6 - 8.7 g/dL [facility] Protein Fractions [Interp] Albumin is decreased. May be observed with hepatic diseases, proteinuria, malnutrition, acute phase response, and hemodilution. Gammaglobulins are low normal. [facility] Total Prot. Sum 4.2 g/dL Low 6.3 - 8.2 g/dL [facility] Total Prot. Sum,% 100 % 98 - 102 % [facility] Glucose (POC)on 10-01-2024 Glucose [Mass/Vol] 180 mg/dL High 74-100 [facility] Glucose,Whole Bloodon 2023 Glucose [Mass/Vol] 126 mg/dL High 75-110 [facility] Glucose [Mass/Vol] 129 mg/dL High 75-110 [facility] Glucose [Mass/Vol] 125 mg/dL High 75-110 [facility] Glucose [Mass/Vol] 142 mg/dL High 75-110 [facility] Glucose [Mass/Vol] 548 mg/dL Critically high 75-110 [facility] Glucose [Mass/Vol] 141 mg/dL High 75-110 [facility] Glucose [Mass/Vol] 154 mg/dL High 75-110 [facility] Lipid Panelon 10-01-2024 Cholesterol [Mass/Vol] 177 mg/dL 0 - 1 99 mg/dL [facility] Cholesterol in HDL [Mass/Vol] 49 mg/dL 40 - PINF mg/dL [facility] Cholesterol in LDL [Mass/Vol] 85 mg/dL 0 - 100 mg/dL [facility] Cholesterol in VLDL [Mass/Vol] 43 mg/dL High 1 - 30 mg/dL [facility] Cholesterol.total/Chol esterol in HDL [Mass ratio] 3.6 {ratio} [facility] Interpretation and review of laboratory results Abnormal [facility] Triglyceride [Mass/Vol] 213 mg/dL High NINF - 150 mg/dL [facility] Lipid Profileon 10-01-2024 Cholesterol [Mass/Vol] 177 mg/dL Normal 0-199 [facility] Comment on above: Result Comment: Chol esterol Guidelines: <200 Desirable 200-240 Borderline >240 Undesirable Performed By: #### C DP, BMPX, LIPR ####[facility] [address] [place] [address] Lab Director: Ramiro Mark MD Cholesterol in HDL [Mass/Vol] 49 mg/dL Normal >40 [facility] Comment on above: Result Comment: HDL Guidelines: <40 Undesirable 40-59 Borderline >59 Desirable Performed By: #### C DP, BMPX, LIPR ####[facility] [address] [place], [place] [id number] Lab Director: Ramiro Mark MD Cholesterol in LDL [Mass/Vol] 85 mg/dL Normal 0-100 [facility] Comment on above: Result Comment: LDL Guidelines: <100 Desirable 100-129 Near to/above Desirable 130-159 Borderline >159 UndesirableDirect (measured) LDL and calculated LDL are not interchangeable tests. Performed By: #### C DP, BMPX, LIPR ####[facility] [address] [place] [address] [id number] Lab Director: Ramiro Mark MD Cholesterol in VLDL [Mass/Vol] 43 mg/dL High 1-30 [facility] Comment on above: Performed By: #### C DP, BMPX, LIPR ####[facility] [address] [place] [address] Lab Director: Ramiro Mark MD Cholesterol.total/Chol esterol in HDL [Mass ratio] 3.6 {ratio} Normal [facility] Comment on above: Performed By: #### C DP, BMPX, LIPR ####[facility] [address] [place] [address] Lab Director: Ramiro Mark MD Triglyceride [Mass/Vol] 213 mg/dL High <150 [facility] Comment on above: Result Comment: Trig lyceride Guidelines: <150 Desirable 150- 199 Borderline 200-499 High >499 Very high Based on AHA Guidelines for fasting triglyceride, July 2012. Performed By: #### C DP, BMPX, LIPR ####[facility] [address] [place] [address] Lab Director: Ramiro Mark MD MYCOPLASMA PNEUMONIAE ANTIBO DY, IGMon 10-01-2024 M. pneumoniae IgM IA Ql (S) 0.22 NINF - 0.91 [facility] Mycoplasma Ab, IgMon 024 Mycoplasma Ab, IgM 0.22 Normal <0.91 [facility] Comment on above: Result Comment: Refe rence Range:<=0.90 Negative0.91-1.09 Equivocal>=1.10 Positive Performed By: #### A GLYCO ####[facility] [address] [place] [address] Lab Director: Wil Swanson MD#### SED, PRCAL, MYCM, CDP, BMPX, TROPI, GLYHGB, IOCAL, LACTIC, CRP ####[facility] [address] [place] [address] Lab Director: Ramiro Mark MD No Panel Informationon 10-01 Interpretation and review of laboratory results Abnormal [facility] Interpretation and review of laboratory results Abnormal [facility] POC Glucose Fingerstickon Glucose [Mass/Vol] 126 mg/dL High 75 - 110 mg/dL [facility] Interpretation and review of laboratory results Abnormal [facility] Glucose [Mass/Vol] 129 mg/dL High 75 - 110 mg/dL [facility] Interpretation and review of laboratory results Abnormal [facility] Glucose [Mass/Vol] 125 mg/dL High 75 - 110 mg/dL [facility] Interpretation and review of laboratory results Abnormal [facility] Glucose [Mass/Vol] 142 mg/dL High 75 - 110 mg/dL [facility] Interpretation and review of laboratory results Abnormal [facility] Glucose [Mass/Vol] 548 mg/dL Critically high 75 - 1 10 mg/dL [facility] Glucose [Mass/Vol] 141 mg/dL High 75 - 110 mg/dL [facility] Glucose [Mass/Vol] 154 mg/dL High 75 - 110 mg/dL [facility] Interpretation and review of laboratory results Abnormal [facility] POCT Glucoseon 10-01-2024 Glucose [Mass/Vol] 180 mg/dL High 74 - 100 mg/dL [facility] Prot. Electroph, Blon 2023 Pathologist Review: ELECTRONICALLY ALEX LACY M.D. Normal [facility] Comment on above: Performed By: #### F KLLC, PE, ANAX, PHEP, MG, CHELO, BMP ####[facility] [address] [place], [place] [id number] lab Director: Ramiro Mark MD Albumin [Mass/Vol] 2.3 g/dL Low 3.2-5.2 [facility] Comment on above: Performed By: #### F KLLC, PE, ANAX, PHEP, MG, CHELO, BMP ####[facility] [address] [place] [address] Lab Director: Ramiro Mark MD Albumin, % 55 % Normal 45-65 [facility] Comment on above: Performed By: #### F KLLC, PE, ANAX, PHEP, MG, CHELO, BMP ####[facility] [address] [place] [address] lab Director: Ramiro Mark MD Point-1-apdbhodjp 0.2 g/dL Normal 0.1-0.4 [facility] Comment on above: Performed By: #### F KLLC, PE, ANAX, PHEP, MG, CHELO, BMP ####[facility] [address] [place] [address] Lab Director: Ramiro Mark MD Dkpxz-7-afrwuzcnh,% 5 % Normal 3-6 [facility] Comment on above: Performed By: #### F KLLC, PE, ANAX, PHEP, MG, CHELO, BMP ####[facility] [address]jt[address] [place] [address] Lab Director: Ramiro Mark MD Iqhoo-0-jbzrmmypo 0.6 g/dL Normal 0.5-0.9 [facility] Comment on above: Performed By: #### F KLLC, PE, ANAX, PHEP, MG, CHELO, BMP ####[facility] [address]ze[address] [place] [address] Lab Director: Ramiro Mark MD Dwlsf-4-yvvwfjitr,% 15 % High 6-13 [facility] Comment on above: Performed By: #### F KLLC, PE, ANAX, PHEP, MG, CHELO, BMP ####[facility] [address] [place] [address] Lab Director: Ramiro Mark MD Beta-globulins 0.6 g/dL Normal 0.5-1.1 [facility] Comment on above: Performed By: #### F KLLC, PE, ANAX, PHEP, MG, CHELO, BMP ####[facility] [address] [place] [address] Lab Director: Ramiro Mark MD Beta-globulins,% 13 % Normal 11-19 [facility] Comment on above: Performed By: #### F KLLC, PE, ANAX, PHEP, MG, CHELO, BMP ####[facility] [address] [place], [place] [phone] Director: Ramiro Mark MD Gamma-globulins 0.5 g/dL Normal 0.5-1.5 [facility] Comment on above: Performed By: #### F KLLC, PE, ANAX, PHEP, MG, CHELO, BMP ####[facility] [address] [place], [place] [phone] Director: Ramiro Mark MD Gamma-globulins,% 12 % Normal 9-20 [facility] Comment on above: Performed By: #### F KLLC, PE, ANAX, PHEP, MG, CHELO, BMP ####[address] [address] Lab Director: Ramiro Mark MD Prot. Elect-Interp Albumin is decreased . May be observed with hepatic diseases, proteinuria, Normal [facility] Comment on above: Result Comment: maln utrition, acute phase response, and hemodilution. Gammaglobulins are low normal. Performed By: #### F KLLC, PE, ANAX, PHEP, MG, CHELO, BMP ####[facility] [address] [place] [address] Lab Director: Ramiro Mark MD Total Prot. Sum 4.2 g/dL Low 6.3-8.2 [facility] Comment on above: Performed By: #### F KLLC, PE, ANAX, PHEP, MG, CHELO, BMP ####[facility] [address] [place] [address] lab Director: Ramiro Mark MD Total Prot. Sum,% 100 % Normal 98-102 [facility] Comment on above: Performed By: #### F KLLC, PE, ANAX, PHEP, MG, CHELO, BMP ####[facility] [address] [place], [place] [id number] lab Director: Ramiro Mark MD Prot. Electrophoresis, Uron 10-01-2024 Total Protein Conc. 100 mg/dL Normal [facility] Comment on above: Performed By: #### U RCL, URNA, UPE, URTPRT ####[facility] [address] [place], [place] [id number] lab Director: Ramiro Mark MD Arterial Bld Gas,POCon 09-30 Jody Test Positive Normal [facility] FIO2 30.0 [facility] HCO3 (Bld) [Moles/Vol] 24.4 mmol/L Normal 21.0-28.0 [facility] Mode of Delivery PRVC Normal [facility] O2 Device Adult Ventilator Normal [facility] Oxygen saturation in Blood 99.4 % High 94.0-98.0 [facility] pCO2, Arterial 36.0 mm Hg Normal 35.0-48.0 [facility] pH, Arterial 7.439 Normal 7.350-7.450 [facility] pO2, Arterial 152.9 mm Hg High 83.0-108.0 [facility] Positive Base Excess (calc) 0.3 mmol/L Normal 0.0-3.0 [facility] Site Drawn Left Radial Artery Normal [facility] Arterial Blood Gas, POCon Jody Test Positive [facility] [employer] FIO2 30.0 [facility] [employer] HCO3 (Bld) [Moles/Vol] 24.4 mmol/L 21.0 - 28.0 mmol/L [facility] [employer] Mode PRVC [facility] [employer] O2 Delivery Device Adult Ventilator [facility] Oxygen saturation in Blood 99.4 % High 94.0 - 98.0 % [facility] POC pCO2 36.[address] [facility] POC pH 7.439 7.350 - 7.[address] [facility] POC PO2 152.[address] [facility] [facility] Hospital Positive Base Excess, Art 0.3 mmol/L 0.0 - 3.0 mmol/L [facility] Sample Site Left Radial Artery [facility] Basic Metab w/rfx MGon 09-30 Anion gap [Moles/Vol] 12 mmol/L Normal 9-[address] [facility] Comment on above: Performed By: #### C DP, C3, C4, BMPX ####[address] [place], [place] [address])[phone] Director: Ramiro Mark MD Calcium [Mass/Vol] 7.8 mg/dL Low 8.6-10.4 [facility] Comment on above: Performed By: #### C DP, C3, C4, BMPX ####[facility] HospitalVaddio Lriaalgudlmx[address] [place], [place] [address])[phone] Director: Ramiro Mark MD Chloride [Moles/Vol] 101 mmol/L Normal 98-107 [facility] Comment on above: Performed By: #### C DP, C3, C4, BMPX ####[employer] Y[address]wojl7892 [place] [address] Lab Director: Ramiro Mark MD CO2 [Moles/Vol] 19 mmol/L Low 20-31 [facility] Comment on above: Performed By: #### C DP, C3, C4, BMPX ####[employer] [address]sp[address] [place], [place] [address])[phone] Director: Ramiro Mark MD Creatinine [Mass/Vol] 2.5 mg/dL High 0.7-1.[address] [facility] Comment on above: Performed By: #### C DP, C3, C4, BMPX ####[address] [address])[phone] Director: Ramiro Mark MD GFR/1.73 sq M.predicted among non-blacks MDRD (S/P/Bld) [Vol rate/Area] 31 mL/min/{1.73_m2} Low >60 [facility] Comment on above: Result Comment: Thes [...] By: #### C DP, C3, C4, BMPX ####[address] [address])[phone] Director: Ramiro Mark MD Glucose [Mass/Vol] 233 mg/dL High 74-99 [facility] Comment on above: Performed By: #### C DP, C3, C4, BMPX ####[address] [address])[phone] Director: Ramiro Mark MD Potassium [Moles/Vol] 4.3 mmol/L Normal 3.7-5.[address] [facility] Comment on above: Performed By: #### C DP, C3, C4, BMPX ####[address] [address])[phone] Director: Ramiro Mark MD Sodium [Moles/Vol] 132 mmol/L Low 136-145 [facility] Comment on above: Performed By: #### C DP, C3, C4, BMPX ####[address] [address])[phone] Director: Ramiro Mark MD Urea nitrogen [Mass/Vol] 47 mg/dL High 6-20 [facility] Comment on above: Performed By: #### C DP, C3, C4, BMPX ####[employer] Xz[address]zbwpatdv[address]3 [place] [address] Lab Director: Ramiro Mark MD Basic Metabolic Panel w/ Ref jose to MGon 09-30-2024 Anion gap [Moles/Vol] 12 mmol/L 9 - 16 mmol/L [facility] Calcium [Mass/Vol] 7.8 mg/dL Low 8.6 - 10. 4 mg/dL [facility] Chloride [Moles/Vol] 101 mmol/L 98 - 10 7 mmol/L [facility] CO2 [Moles/Vol] 19 mmol/L Low 20 - 31 mmol/L [facility] Creatinine [Mass/Vol] 2.5 mg/dL High 0.7 - 1.2 mg/dL [facility] Est, Glom Filt Rate 31 Low - PINF [facility] Glucose [Mass/Vol] 233 mg/dL High 74 - 99 mg/dL [facility] Interpretation and review of laboratory results Abnormal [facility] Potassium [Moles/Vol] 4.3 mmol/L 3.7 - 5.3 mmol/L [facility] Sodium [Moles/Vol] 132 mmol/L Low 136 - 145 mmol/L [facility] Urea nitrogen [Mass/Vol] 47 mg/dL High 6 - 20 mg/dL [facility] C3on 09-30-2024 C3 117 mg/dL Normal 90-180 [facility] Comment on above: Performed By: #### C DP, C3, C4, BMPX ####[employer] Ym[address]mqxzgz2233 [place], [place] [id number] Lab Director: Ramiro Mark MD C3 Complementon 09-30-2024 Complement C3 [Mass/Vol] 117 mg/dL 90 - 180 mg/dL [facility] C4on 09-30-2024 C4 22 mg/dL Normal 10-40 [facility] Comment on above: Performed By: #### C DP, C3, C4, BMPX ####[address] [place] [address] lab Director: Ramiro Mark MD C4 Complementon 09-30-2024 Complement C4 [Mass/Vol] 22 mg/dL 10 - 40 mg/dL [facility] CBC with Auto Differentialon 09-30-2024 Basophils (Bld) [#/Vol] 0.04 10*3/uL [facility] Basophils/100 WBC (Bld) 0 % 0 - 2 % [facility] Eosinophils (Bld) [#/Vol] 0.06 10*3/uL [facility] Eosinophils/100 WBC (Bld) 1 % 1 - 4 % [facility] Erythrocyte distribution width (RBC) [Ratio] 13.3 % 11.8 - 14.4 % [facility] Hematocrit (Bld) [Volume fraction] 26.2 % Low 40.7 - 50.3 % [facility] Hemoglobin (Bld) [Mass/Vol] 8.4 g/dL Low 13.0 - 17.0 g/dL [facility] Immature granulocytes (Bld) [#/Vol] 0.06 10*3/uL [facility] Immature granulocytes/100 WBC (Bld) 1 % High 0 [facility] Interpretation and review of laboratory results Abnormal [facility] Lymphocytes/100 WBC (Bld) 12 % Low 24 - 43 % [facility] Lymphocytes/100 WBC (Bld) 1.51 % [facility] MCH (RBC) [Entitic mass] 28.9 pg 25.2 - 33.5 pg [facility] MCHC (RBC) [Mass/Vol] 32.1 g/dL 28.4 - 34.8 g/dL [facility] MCV (RBC) [Entitic vol] 90.0 fL 82.6 - 102.9 fL [facility] Monocytes/100 WBC (Bld) 6 % 3 - 12 % [facility] Monocytes/100 WBC (Bld) 0.77 % [facility] Neutrophils/100 WBC (Bld) 81 % High 36 - 65 % [facility] Nucleated RBC/100 WBC (Bld) [Ratio] 0.0 % 0.0 per [address] [facility] Platelet mean volume (Bld) [Entitic vol] 10.9 fL 8.1 - 13.[address] [facility] Platelets (Bld) [#/Vol] 186 10*3/uL [facility] RBC (Bld) [#/Vol] 2.91 10*6/uL Low 4.21 - 5.7 7 m/uL [facility] Segmented neutrophils/100 WBC (Bld) 10.11 % High [facility] WBC other (Bld) [#/Vol] 12.6 High [facility] CBC with Diffon 09-30-2024 Abs. Basophil 0.04 k/uL Normal 0.00-0.20 [facility] Comment on above: Performed By: #### C DP, C3, C4, BMPX ####[facility] [address] [place], [place] [address])[phone] Director: Ramiro Mark MD Abs.Imm.Granulocyte 0.06 k/uL Normal 0.00-0.30 [facility] Comment on above: Performed By: #### C DP, C3, C4, BMPX ####[facility] [address] [place], [place] [address])[phone] Director: Ramiro Mark MD Abs.Neutrophil (Seg) 10.11 k/uL High 1.50-8.10 [facility] Comment on above: Performed By: #### C DP, C3, C4, BMPX ####[facility] HospitalVaddio Wac[address]vlvpwbe3890 [place] [address] Lab Director: Ramiro Mark MD Basophils/100 WBC (Bld) 0 % Normal 0-2 [facility] Comment on above: Performed By: #### C DP, C3, C4, BMPX ####[facility] HospitalSocialVoltOagxcubickij[address] [place], [place] [address])[phone] Director: Ramiro Mark MD Eosinophils (Bld) [#/Vol] 0.06 10*3/uL Normal 0.00-0.44 [facility] Comment on above: Performed By: #### C DP, C3, C4, BMPX ####[place] [address] Lab Director: Ramiro Mark MD Eosinophils/100 WBC (Bld) 1 % Normal 1-4 [facility] Comment on above: Performed By: #### C DP, C3, C4, BMPX ####[place], [place] [address])[phone] Director: Ramiro Mark MD Erythrocyte distribution width (RBC) [Ratio] 13.3 % Normal 11.8-14.4 [facility] Comment on above: Performed By: #### C DP, C3, C4, BMPX ####[place], [place] [address])[phone] Director: Ramiro Mark MD Hematocrit (Bld) [Volume fraction] 26.2 % Low 40.7-50.3 [facility] Comment on above: Performed By: #### C DP, C3, C4, BMPX ####[place], [place] [address])[phone] Director: Ramiro Mark MD Hemoglobin (Bld) [Mass/Vol] 8.4 g/dL Low 13.0-17.0 [facility] Comment on above: Performed By: #### C DP, C3, C4, BMPX ####[place], [place] [address])[phone] Director: Ramiro Mark MD Immature granulocytes/100 WBC (Bld) 1 % High 0 [facility] Comment on above: Performed By: #### C DP, C3, C4, BMPX ####[place], [place] [address])[phone] Director: Ramiro Mark MD Lymphocytes (Bld) [#/Vol] 1.51 10*3/uL Normal 1.10-3.70 [facility] Comment on above: Performed By: #### C DP, C3, C4, BMPX ####[place], [place] [address])[phone] Director: Ramiro aMrk MD Lymphocytes/100 WBC (Bld) 12 % Low 24-43 [facility] Comment on above: Performed By: #### C DP, C3, C4, BMPX ####[place], [place] [address])[phone] Director: Ramiro Mark MD MCH (RBC) [Entitic mass] 28.9 pg Normal 25.2-33.5 [facility] Comment on above: Performed By: #### C DP, C3, C4, BMPX ####[place], [place] [address])[phone] Director: Ramiro Mark MD MCHC (RBC) [Mass/Vol] 32.1 g/dL Normal 28.4-34.[address] [facility] Comment on above: Performed By: #### C DP, C3, C4, BMPX ####[place], [place] [address])[phone] Director: Ramiro Mark MD MCV (RBC) [Entitic vol] 90.0 fL Normal 82.6-102.9 [facility] Comment on above: Performed By: #### C DP, C3, C4, BMPX ####[place], [place] [address])[phone] Director: Ramiro Mark MD Monocytes (Bld) [#/Vol] 0.77 10*3/uL Normal 0.10-1.20 [facility] Comment on above: Performed By: #### C DP, C3, C4, BMPX ####[place], [place] [address])[phone] Director: Ramiro Mark MD Monocytes/100 WBC (Bld) 6 % Normal 3-12 [facility] Comment on above: Performed By: #### C DP, C3, C4, BMPX ####[address] [phone] Director: Ramiro Mark MD Neutrophil (Seg) 81 % High 36-65 [facility] Comment on above: Performed By: #### C DP, C3, C4, BMPX ####[address] [phone] Director: Ramiro Mark MD NRBC Automated 0.0 per 100 WBC Normal 0.0 [facility] Comment on above: Performed By: #### C DP, C3, C4, BMPX ####[address] [id number])[phone] Director: Ramiro Mark MD Platelet mean volume (Bld) [Entitic vol] 10.9 fL Normal 8.1-13.5 [facility] Comment on above: Performed By: #### C DP, C3, C4, BMPX ####[address] [phone] Director: Ramiro Mark MD Platelets (Bld) [#/Vol] 186 10*3/uL Normal 138-453 [facility] Comment on above: Performed By: #### C DP, C3, C4, BMPX ####[address] [phone] Director: Ramiro Mark MD RBC (Bld) [#/Vol] 2.91 10*6/uL Low 4.21-5.77 [facility] Comment on above: Performed By: #### C DP, C3, C4, BMPX ####[address] [phone] Director: Ramiro Mark MD WBC (Bld) [#/Vol] 12.6 10*3/uL High 3.5-11.3 [facility] Comment on above: Performed By: #### C DP, C3, C4, BMPX ####[address] [address] lab Director: Ramiro Mark MD Calcium, Ionicon 09-30-2024 Calcium [Moles/Vol] 1.20 mmol/L Normal 1.13-1.33 [facility] Comment on above: Performed By: #### I OCAL ####[address] [address] Lab Director: Ramiro Mark MD Calcium, Ionizedon 4 Calcium.ionized (Bld) [Moles/Vol] 1.20 mmol/L 1.13 - 1.33 mmol/L [facility] Chloride, Random Urineon Chloride (U) [Moles/Vol] mmol/L mmol/L [facility] Chloride,Random Uron 024 Cl Conc. <20 Normal [facility] Comment on above: Result Comment: No n ormal range established. Performed By: #### U RCL, URNA, UPE, URTPRT ####[address] [address] Lab Director: Ramiro Mark MD Cult,Respiratoryon 4 Cult,Respiratory Abnormal [facility] Comment on above: Performed By: #### R ESPC ####[address] [address] Lab Director: Ramiro Mark MD Culture, Respiratoryon 09-30 Interpretation and review of laboratory results Abnormal [facility] Microorganism identified Cx Nom (Unsp spec) NORMAL RESPIRATORY AYDEN LIGHT GROWTH [facility] Microorganism or agent identified Nom (Unsp spec) < 10 EPITHELIAL CELLS/LPF [facility] Microorganism or agent identified Nom (Unsp spec) >10, <25 NEUTROPHILS/LPF [facility] Microorganism or agent identified Nom (Unsp spec) Positive Abnormal [facility] Service comment (Unsp spec) [Interp] Site: Respiratory specimen [facility] Specimen Description .TRACHEAL ASPIRATE [facility] Free Paraje + Lambdaon 2023 Free Paraje Lt Chains 41.5 mg/L High <20.7 [facility] Comment on above: Result Comment: Perf ormed using Diazyme reagent on Jaime Moira Pro. Results obtained with different assay methods cannot be used interchangeably. Performed By: #### F KLLC, PE, ANAX, PHEP, MG, CHELO, BMP ####[employer] [place], [place] [id number] Lab Director: Ramiro Mark MD Free Paraje/Lambda Rat 1.17 Normal 0.22-1.[address] [facility] Comment on above: Performed By: #### F KLLC, PE, ANAX, PHEP, MG, CHELO, BMP ####[employer] [address]tc[address] [place], [place] [id number] Lab Director: Ramiro Mark MD Free Lambda Lt Chains 35.6 mg/L High 4.2-27.[address] [facility] Comment on above: Result Comment: Perf ormed using Diazyme reagent on Jaime [employer] Pro. Results obtained with different assay methods cannot be used interchangeably. Performed By: #### F KLLC, PE, ANAX, PHEP, MG, CHELO, BMP ####[employer] [address]uj[address] [place], [place] [id number] Lab Director: Ramiro Mark MD GLYCOSYLATED HGBon 4 Estimated Avg Glucose >427 mg/dL [facility] HbA1c (Bld) [Mass fraction] % High NINF - 5.6 % [facility] Interpretation and review of laboratory results Abnormal [facility] Glucose (POC)on 09-30-2024 Glucose [Mass/Vol] 242 mg/dL High 74-100 [facility] Glucose,Whole Bloodon 2023 Glucose [Mass/Vol] 170 mg/dL High 75-110 [facility] Glucose [Mass/Vol] 176 mg/dL High 75-110 [facility] Glucose [Mass/Vol] 202 mg/dL High 75-110 [facility] Glucose [Mass/Vol] 258 mg/dL High 75-110 [facility] Glycosylated HgBon [address] Glucose >427 Normal [facility] Comment on above: Result Comment: (NOT E)Performed By: [facility] [place], [place] [address]Mweoojpcxk Director: Rogelio Miranda MD, PhDCLIA Number: [id number] Performed By: #### A GLYCO ####[facility] [place] [address] Lab Director: Wil Swanson MD#### SED, PRCAL, MYCM, CDP, BMPX, TROPI, GLYHGB, IOCAL, LACTIC, CRP ####[employer] [address] [place] [address] lab Director: Ramiro Mark MD HbA1c (Bld) [Mass fraction] % High <=5.6 [facility] Comment on above: Result Comment: (NOT E)INTERPRETIVE INFORMATION: Hemoglobin P1oHcE0a values of 5.7-6.4 percent indicate an increased risk fordeveloping diabetes mellitus. HbA1c values greater than or equalto 6.5 percent are diagnostic of diabetes mellitus. For diagnosisof diabetes in individuals without unequivocal hyperglycemia,results should be confirmed by repeat testing. Performed By: #### A GLYCO ####[employer] [place] [address] lab Director: Wil Swanson MD#### SED, PRCAL, MYCM, CDP, BMPX, TROPI, GLYHGB, IOCAL, LACTIC, CRP ####[facility] [address] [place] [address] lab Director: Ramiro Mark MD Hepatitis Acute [facility] 09-30 Hep A Ab,IgM Non-Reactive Normal NR [facility] Comment on above: Performed By: #### F KLLC, PE, ANAX, PHEP, MG, CHELO, BMP ####[facility] [address]ngccb[address] [place], [place] [id number] lab Director: Ramiro Mark MD Hep B Core Ab,IgM Non-Reactive Normal NR [facility] Comment on above: Performed By: #### F KLLC, PE, ANAX, PHEP, MG, CHELO, BMP ####[facility] [address] [place], [place] 8858[address] lab Director: Ramiro Mark MD Hep B Surf Ag Non-Reactive Normal [facility] Comment on above: Performed By: #### F KLLC, PE, ANAX, PHEP, MG, CHELO, BMP ####[facility] [address] [place], [place] 5114208 lab Director: Ramiro Mark MD Hep C Ab Non-Reactive Normal [facility] Comment on above: Result Comment: The hepatitis [...] PE, ANAX, PHEP, MG, CHELO, BMP ####[facility] [address] [place], [place] 3149508 lab Director: Ramiro Mark MD Hepatitis Panel, Acute HAV IgM IA Ql Non-Reactive NONREACTIVE [facility] HBV core IgM IA Ql Non-Reactive NONREACTIVE Bon [facility] HBV surface Ag IA Ql Non-Reactive NONREACTIVE B on [facility] HCV Ab IA Ql Non-Reactive NONREACTIVE [facility] Paraje/Lambda Quantitative Fr ee Light Chains, Serumon 09-30-2024 Free Paraje/Lambda Ratio 1.17 0.22 - 1.[address] [facility] Immunoglobulin light chains.kappa.free (S) [Mass/Vol] 41.5 mg/L High NINF - 20.7 mg/L [facility] Immunoglobulin light chains.lambda.free [Mass/Vol] 35.6 mg/L High 4.2 - 27.7 mg/L [facility] Interpretation and review of laboratory results Abnormal [facility] Lactic Acid (POC)on 09-30-20 24 Lactate [Moles/Vol] 0.8 mmol/L Normal 0.56-1.39 [facility] Lactic Acid, POCon 4 POC Lactic Acid 0.8 mmol/L 0.56 - 1.39 mmol/L [facility] MR Brain WO contraston 09-30 PN RIS CONSOLIDATED [facility] RIS CONSOLIDATED [facility] Radiology Study observation (narrative) [facility] MR Brain WO contrastOrdered By: Jeffery Smalls on 09-30-[address] [facility] Work Phone: MRI BRAIN WO CONTRASTon 09-16 MRI BRAIN WO CONTRAST Normal [facility] Microscopic Urinalysison Bacteria LM Ql (Urine sed) None None [facility] Casts LM.LPF (Urine sed) [#/Area] 10 TO 20 HYALINE Reference range defined for non-centrifuged specimen. [facility] Epithelial cells LM.HPF (Urine sed) [#/Area] 5 TO [address] [facility] RBC LM.HPF (Urine sed) [#/Area] 10 TO [address] [facility] WBC LM.HPF (Urine sed) [#/Area] 5 TO 10 [facility] No Panel Informationon 09-30 [facility] Interpretation and review of laboratory results Abnormal [facility] POC Glucose Fingerstickon 12 -15-2024 Glucose [Mass/Vol] 170 mg/dL High 75 - 110 mg/dL [facility] Interpretation and review of laboratory results Abnormal [facility] Glucose [Mass/Vol] 176 mg/dL High 75 - 110 mg/dL [facility] Interpretation and review of laboratory results Abnormal [facility] Glucose [Mass/Vol] 202 mg/dL High 75 - 110 mg/dL [facility] Interpretation and review of laboratory results Abnormal [facility] Glucose [Mass/Vol] 258 mg/dL High 75 - 110 mg/dL [facility] Interpretation and review of laboratory results Abnormal [facility] POCT Glucoseon 09-30-2024 Glucose [Mass/Vol] 242 mg/dL High 74 - 100 mg/dL [facility] Prot. Electroph, Blon 2023 Protein [Mass/Vol] 4.2 g/dL Low 6.6-8.7 [facility] Comment on above: Performed By: #### F KLLC, PE, ANAX, PHEP, MG, CHELO, BMP ####[facility] [address] [place] [id number] Lab Director: Ramiro Mark MD Prot. Electrophoresis, Uron 09-30-2024 Type of Specimen .URINE Normal [facility] Comment on above: Performed By: #### U RCL, URNA, UPE, URTPRT ####[facility] [address] [place] [id number] lab Director: Ramiro Mark MD Protein / creatinine ratio, urineon 09-30-2024 Creatinine (U) [Mass/Vol] 41.2 mg/dL 39.0 - 259.0 mg/dL [facility] Interpretation and review of laboratory results Abnormal [facility] Protein (U) [Mass/Vol] 100 mg/dL Trip [facility] Urine Total Protein Creatinine Ratio 2.43 High 0.00 - 0.[address] [facility] Protein,Tot,[place] Uron 2023 Creatinine [Mass/Vol] 41.2 mg/dL Normal 39.0-259.[address] [facility] Comment on above: Performed By: #### U RCL, URNA, UPE, URTPRT ####[facility] [address] [place], [place] [phone] Director: Ramiro Mark MD Tot Prot. Conc. 100 mg/dL Normal [facility] Comment on above: Result Comment: No n ormal range established. Performed By: #### U RCL, URNA, UPE, URTPRT ####[facility] [address] [place] [address] Lab Director: Ramiro Mark MD TP/Cre Ratio 2.43 High 0.00-0.20 [facility] Comment on above: Performed By: #### U RCL, URNA, UPE, URTPRT ####[facility] [address] [place] [address] Lab Director: Ramiro Mark MD Sodium, Random Uron 09-30-20 24 Na Conc. Urine <20 Normal [facility] Comment on above: Result Comment: No n ormal range established. Performed By: #### U RCL, URNA, UPE, URTPRT ####[address] [address] Lab Director: Ramiro Mark MD Sodium, urine, randomon 09-16 Sodium (U) [Moles/Vol] mmol/L mmol/L Trip n [facility] UA w/Reflex Cultureon 2023 Bilirubin, SemiQt,Ur Negative Normal NEG [facility] Comment on above: Performed By: #### U MICAO, UAX ####[facility] [address] [place] [address] Lab Director: Ramiro Mark MD Blood, Urine MODERATE Abnormal NEG [facility] Comment on above: Performed By: #### U MICAO, UAX ####[facility] [address] [place], [place] [phone] Director: Ramiro Mark MD Clarity (U) Cloudy Abnormal CLEAR [facility] Comment on above: Performed By: #### U MICAO, UAX ####[facility] [address] [place] [address] Lab Director: Ramiro Mark MD Color (U) Yellow Normal YEL [facility] Comment on above: Performed By: #### U MICAO, UAX ####[facility] [address]auhaed[address] [place], [place] [phone] Director: Ramiro Mark MD Glucose Ql (U) 3+ mg/dL Abnormal NEG [facility] Comment on above: Performed By: #### U MICAO, UAX ####[facility] [address] [place] [address] [phone] Director: Ramiro Mark MD Ketones Ql (U) Negative Normal NEG [facility] Comment on above: Performed By: #### U MICAO, UAX ####[facility] [address] [place] [address] [phone] Director: Ramiro Mark MD Leukocyte esterase Test strip Ql (U) Negative Normal NEG [facility] Comment on above: Performed By: #### U MICAO, UAX ####[facility] [address]aklip[address] [place], [place] [phone] Director: Ramiro Mark MD Nitrite,Ur Negative Normal NEG [facility] Comment on above: Performed By: #### U MICAO, UAX ####[facility] [address]sexyoxwsu[address] [place], [place] [phone] Director: Ramiro Mark MD PH,Ur 5.0 Normal 5.0-8.0 [facility] Comment on above: Performed By: #### U MICAO, UAX ####[facility] [address] [place] [address] Lab Director: Ramiro Mark MD Protein Ql (U) 3+ mg/dL Abnormal NEG [facility] Comment on above: Performed By: #### U MICAO, UAX ####[facility] [address] [place] [address] lab Director: Ramiro Mark MD Spec. [place],Ur 1.027 Normal 1.005-1.030 [facility] Comment on above: Performed By: #### U MICAO, UAX ####[facility] [address] [place] [address] lab Director: Ramiro Mark MD Urobilinogen,Ur Normal Normal 0.0-1.0 [facility] Comment on above: Performed By: #### U MICAO, UAX ####[facility] [address]zifdxyvfu[address]12 [place] [address] lab Director: Ramiro Mark MD Urinalysis with Reflex to Cu ltureon 09-30-2024 Bilirubin Ql (U) Negative NEGATIVE [facility] [employer] Clarity (U) Cloudy Abnormal Clear [facility] Color (U) Yellow Yellow [facility] Glucose Test strip (U) [Mass/Vol] 3+ Abnormal NEGATIVE mg/dL [facility] Hemoglobin Auto test strip Ql (U) MODERATE Abnormal NEGATIVE [facility] Interpretation and review of laboratory results Abnormal [facility] Ketones (U) [Mass/Vol] Negative NEGAT RAJAN mg/dL [facility] Leukocyte esterase Test strip Ql (U) Negative NEGATIVE [facility] Nitrite Ql (U) Negative NEGATIVE [facility] pH (U) 5.0 [pH] 5.0 - 8.[address] [facility] Protein (U) [Mass/Vol] 3+ Abnormal NEGAT RAJAN mg/dL [facility] Specific gravity (U) [Rel density] 1.027 1.005 - 1.[address] [facility] Urobilinogen Qn (U) Normal 0.0 - 1. 0 EU/dL [facility] Urinalysis,Microon 4 Bacteria None Normal NONE [facility] Comment on above: Performed By: #### U MICAO, UAX ####[facility] [address] [place] [address] Lab Director: Ramiro Mark MD Casts 10 TO 20 HYALINE Normal 0-8 [facility] Comment on above: Result Comment: Refe rence range defined for non-centrifuged specimen. Performed By: #### U MICAO, UAX ####[facility] [address]jsddxt80[address] [place] [address] Lab Director: Ramiro Mark MD Epithelial cells LM Ql (Urine sed) 5 TO 10 Normal 05 [facility] Comment on above: Performed By: #### U ABDIO, UAX ####[facility] [address]zciema3430 [place] [address] Lab Director: Ramiro Mark MD Urine RBC's 10 TO 20 Normal 0-4 [facility] Comment on above: Result Comment: Refe rence range defined for non-centrifuged specimen. Performed By: #### U MICAO, UAX ####[facility] [address] [place] [address] Lab Director: Ramiro Mark MD Urine WBC's 5 TO [address] Comment on above: Performed By: #### U MICAO, UAX ####[facility] [address] [place] [address] Lab Director: Ramiro Mark MD Anti-Xa, Unfractionated Hepa rinon 09-29-2024 Anti-XA Unfrac Heparin 0.51 IU/L Trip n [facility] Anti-XA Unfrac Heparin 0.28 IU/L Trip n [facility] Anti-XA Unfrac Heparin 0.44 IU/L Trip n [facility] Bon [facility] Arterial Bld Gas,POCon 09-29 Jody Test Positive Normal [facility] FIO2 30.0 Normal [facility] HCO3 (Bld) [Moles/Vol] 25.0 mmol/L Normal 21.0-28.0 [facility] Oxygen saturation in Blood 99.5 % High 94.0-98.0 [facility] pCO2, Arterial 38.9 mm Hg Normal 35.0-48.0 [facility] pH, Arterial 7.415 Normal 7.350-7.450 [facility] pO2, Arterial 161.8 mm Hg High 83.0-108.0 [facility] Positive Base Excess (calc) 0.4 mmol/L Normal 0.0-3.0 [facility] Site Drawn Right Radial Artery Normal [facility] Arterial Blood Gas, POCon Jody Test Positive [facility] FIO2 30.[address] [facility] HCO3 (Bld) [Moles/Vol] 25.0 mmol/L 21.0 - 28.0 mmol/L [facility] Oxygen saturation in Blood 99.5 % High 94.0 - 98.0 % [facility] POC pCO2 38.[address] [facility] POC pH 7.415 7.350 - 7.[address] [facility] POC PO2 161.[address] [facility] Positive Base Excess, Art 0.4 mmol/L 0.0 - 3.0 mmol/L [facility] Sample Site Right Radial Artery [facility] Basic Metabolic Panelon 09-16 Anion gap [Moles/Vol] 12 mmol/L 9 - 16 mmol/L [facility] Calcium [Mass/Vol] 8.1 mg/dL Low 8.6 - 10. 4 mg/dL [facility] Chloride [Moles/Vol] 101 mmol/L 98 - 10 7 mmol/L [facility] CO2 [Moles/Vol] 20 mmol/L 20 - 31 mmol/L [facility] Creatinine [Mass/Vol] 2.4 mg/dL High 0.7 - 1.2 mg/dL [facility] Est, Glom Filt Rate 32 Low - PINF [facility] Glucose [Mass/Vol] 258 mg/dL High 74 - 99 mg/dL [facility] Interpretation and review of laboratory results Abnormal [facility] Potassium [Moles/Vol] 4.4 mmol/L 3.7 - 5.3 mmol/L [facility] Sodium [Moles/Vol] 133 mmol/L Low 136 - 145 mmol/L [facility] Urea nitrogen [Mass/Vol] 39 mg/dL High 6 - 20 mg/dL [facility] Est, Glom Filt Rate 36 Low - PINF [facility] Interpretation and review of laboratory results Abnormal [facility] Anion gap [Moles/Vol] 11 mmol/L 9 - 16 mmol/L [facility] Calcium [Mass/Vol] 8.0 mg/dL Low 8.6 - 10. 4 mg/dL [facility] Chloride [Moles/Vol] 104 mmol/L 98 - 10 7 mmol/L [facility] CO2 [Moles/Vol] 21 mmol/L 20 - 31 mmol/L [facility] Creatinine [Mass/Vol] 2.4 mg/dL High 0.7 - 1.2 mg/dL [facility] Est, Glom Filt Rate 32 Low - PINF [facility] Glucose [Mass/Vol] 214 mg/dL High 74 - 99 mg/dL [facility] Interpretation and review of laboratory results Abnormal [facility] Potassium [Moles/Vol] 3.8 mmol/L 3.7 - 5.3 mmol/L [facility] Sodium [Moles/Vol] 136 mmol/L 136 - 145 mmol/L [facility] Urea nitrogen [Mass/Vol] 41 mg/dL High 6 - 20 mg/dL [facility] Basic Metabolic Profon 09-29 Anion gap [Moles/Vol] 12 mmol/L Normal 9-16 [facility] Comment on above: Performed By: #### H EPXA, BMP, MG, CHELO ####[facility] [address] [place] [address] Lab Director: Ramiro Mark MD Calcium [Mass/Vol] 8.1 mg/dL Low 8.6-10.4 [facility] Comment on above: Performed By: #### H EPXA, BMP, MG, CHELO ####[facility] [address] [place] [address] Lab Director: Ramiro Mark MD Chloride [Moles/Vol] 101 mmol/L Normal 98-107 [facility] Comment on above: Performed By: #### H EPXA, BMP, MG, CHELO ####[facility] [address] [place] [address] Lab Director: Rmairo Mark MD CO2 [Moles/Vol] 20 mmol/L Normal 20-31 [facility] Comment on above: Performed By: #### H EPXA, BMP, MG, CHELO ####[facility] [address] [place] [address] Lab Director: Ramiro Mark MD Creatinine [Mass/Vol] 2.4 mg/dL High 0.7-1.[address] [facility] Comment on above: Performed By: #### H EPXA, BMP, MG, CHELO ####[facility] [address] [place] [address] Lab Director: Ramiro Mark MD GFR/1.73 sq M.predicted among non-blacks MDRD (S/P/Bld) [Vol rate/Area] 32 mL/min/{1.73_m2} Low >60 [facility] Comment on above: Result Comment: Thes [...] #### H EPXA, BMP, MG, CHELO ####[facility] [address] [place] [address] Lab Director: Ramiro Mark MD Glucose [Mass/Vol] 258 mg/dL High 74-99 [facility] Comment on above: Performed By: #### H EPXA, BMP, MG, CHELO ####[facility] [address] [place], [place] [phone] Director: Ramiro Mark MD Potassium [Moles/Vol] 4.4 mmol/L Normal 3.7-5.[address] [facility] Comment on above: Result Comment: Spec imen hemolysis has exceeded the interference as defined by Jaime. Value may be falsely increased. Suggest recollection if clinically indicated. Performed By: #### H EPXA, BMP, MG, CHELO ####[facility] [address] [place], [place] [phone] Director: Ramiro Mark MD Sodium [Moles/Vol] 133 mmol/L Low 136-145 [facility] Comment on above: Performed By: #### H EPXA, BMP, MG, CHELO ####[facility] [address] [place], [place] [phone] Director: Ramiro Mark MD Urea nitrogen [Mass/Vol] 39 mg/dL High 6-20 [facility] Comment on above: Performed By: #### H EPXA, BMP, MG, CHELO ####[facility] [address] [place] [address] Lab Director: Ramiro Mark MD Anion gap [Moles/Vol] 9 mmol/L Normal 9-[address] [facility] Comment on above: Performed By: #### F KLLC, PE, ANAX, PHEP, MG, CHELO, BMP ####[facility] [address] [place] [address] lab Director: Ramiro Mark MD Calcium [Mass/Vol] 7.1 mg/dL Low 8.6-10.4 [facility] Comment on above: Performed By: #### F KLLC, PE, ANAX, PHEP, MG, CHELO, BMP ####[facility] [address] [place] [address] lab Director: Ramiro Mark MD Chloride [Moles/Vol] 99 mmol/L Normal 98-[address] [facility] Comment on above: Performed By: #### F KLLC, PE, ANAX, PHEP, MG, CHELO, BMP ####[facility] [address] [place], [place] [address])[phone] Director: Ramiro Mark MD CO2 [Moles/Vol] 19 mmol/L Low 20-31 Bon [facility] Comment on above: Performed By: #### F KLLC, PE, ANAX, PHEP, MG, CHELO, BMP ####[facility] [address] [place], [place] [address])[phone] Director: Ramiro Mark MD Creatinine [Mass/Vol] 2.2 mg/dL High 0.7-1.[address] [facility] Comment on above: Performed By: #### F KLLC, PE, ANAX, PHEP, MG, CHELO, BMP ####[facility] [address] [place], [place] [address])[phone] Director: Ramiro Mark MD Glucose [Mass/Vol] 588 mg/dL Critically high 74-99 B on [facility] Comment on above: Performed By: #### F KLLC, PE, ANAX, PHEP, MG, CHELO, BMP ####[facility] [address] [place] [address] lab Director: Ramiro Mark MD Potassium [Moles/Vol] 3.5 mmol/L Low 3.7-5.[address] [facility] Comment on above: Performed By: #### F KLLC, PE, ANAX, PHEP, MG, CHELO, BMP ####[facility] [address] [place] [address] Lab Director: Ramiro Mark MD Sodium [Moles/Vol] 127 mmol/L Low 136-145 Bon [facility] Comment on above: Performed By: #### F KLLC, PE, ANAX, PHEP, MG, CHELO, BMP ####[facility] [address] [place] [address] Lab Director: Ramiro Mark MD Urea nitrogen [Mass/Vol] 34 mg/dL High 6-20 Bon [facility] Comment on above: Performed By: #### F KLLC, PE, ANAX, PHEP, MG, CHELO, BMP ####[facility] [address] [place] [address] Lab Director: Ramiro Mark MD GFR/1.73 sq M.predicted among non-blacks MDRD (S/P/Bld) [Vol rate/Area] 36 mL/min/{1.73_m2} Low >60 [facility] Comment on above: Result Comment: Thes [...] KLLC, PE, ANAX, PHEP, MG, CHELO, BMP ####[facility] [address] [place] [address] Lab Director: Ramiro Mark MD Anion gap [Moles/Vol] 11 mmol/L Normal 9-[address] [facility] Comment on above: Performed By: #### B MP, MG, CHELO ####[facility] [address] [place] [address] Lab Director: Ramiro Mark MD Calcium [Mass/Vol] 8.0 mg/dL Low 8.6-10.4 [facility] Comment on above: Performed By: #### B MP, MG, CHELO ####[facility] [address] [place], [place] [phone] Director: Ramiro Mark MD Chloride [Moles/Vol] 104 mmol/L Normal 98-107 [facility] Comment on above: Performed By: #### B MP, MG, CHELO ####[facility] [address] [place], [place] [phone] Director: Ramiro Mark MD CO2 [Moles/Vol] 21 mmol/L Normal 20-31 [facility] Comment on above: Performed By: #### B MP, MG, CHELO ####[facility] [address] [place] [address] [phone] Director: Ramiro Mark MD Creatinine [Mass/Vol] 2.4 mg/dL High 0.7-1.[address] [facility] Comment on above: Performed By: #### B MP, MG, CHELO ####[facility] [address] [place] [address])[phone] Director: Ramiro Mark MD GFR/1.73 sq M.predicted among non-blacks MDRD (S/P/Bld) [Vol rate/Area] 32 mL/min/{1.73_m2} Low >60 [facility] Comment on above: Result Comment: Thes [...] Performed By: #### B MP, MG, CHELO ####[facility] [address] [place] [address] Lab Director: Ramiro Mark MD Glucose [Mass/Vol] 214 mg/dL High 74-99 [facility] Comment on above: Performed By: #### B MP, MG, CHELO ####[facility] [address] [place] [address] Lab Director: Ramiro Mark MD Potassium [Moles/Vol] 3.8 mmol/L Normal 3.7-5.[address] [facility] Comment on above: Performed By: #### B MP, MG, CHELO ####[facility] [address] [place] [address] Lab Director: Ramiro Mark MD Sodium [Moles/Vol] 136 mmol/L Normal 136-145 [facility] Comment on above: Performed By: #### B MP, MG, CHELO ####[facility] [address] [place] [address] Lab Director: Ramiro Mark MD Urea nitrogen [Mass/Vol] 41 mg/dL High 6-20 [facility] Comment on above: Performed By: #### B MP, MG, CHELO ####[facility] [address] [place] [address] Lab Director: Ramiro Mark MD CBC with Auto Differentialon 09-29-2024 Basophils (Bld) [#/Vol] 0.05 10*3/uL [facility] Basophils/100 WBC (Bld) 0 % 0 - 2 % [facility] Eosinophils (Bld) [#/Vol] [facility] Eosinophils/100 WBC (Bld) 0 % Low 1 - 4 % [facility] Erythrocyte distribution width (RBC) [Ratio] 13.1 % 11.8 - 14.4 % [facility] Hematocrit (Bld) [Volume fraction] 26.1 % Low 40.7 - 50.3 % [facility] Hemoglobin (Bld) [Mass/Vol] 8.8 g/dL Low 13.0 - 17.0 g/dL [facility] Immature granulocytes (Bld) [#/Vol] 0.12 10*3/uL [facility] Immature granulocytes/100 WBC (Bld) 1 % High [address] [facility] Interpretation and review of laboratory results Abnormal [facility] Lymphocytes/100 WBC (Bld) 8 % Low 24 - 43 % [facility] Lymphocytes/100 WBC (Bld) 1.42 % [facility] MCH (RBC) [Entitic mass] 28.6 pg 25.2 - 33.5 pg [facility] MCHC (RBC) [Mass/Vol] 33.7 g/dL 28.4 - 34.8 g/dL [facility] MCV (RBC) [Entitic vol] 84.7 fL 82.6 - 102.9 fL [facility] Monocytes/100 WBC (Bld) 5 % 3 - 12 % [facility] Monocytes/100 WBC (Bld) 0.81 % [facility] Neutrophils/100 WBC (Bld) 86 % High 36 - 65 % [facility] Nucleated RBC/100 WBC (Bld) [Ratio] 0.0 % 0.0 per [address] [facility] Platelet mean volume (Bld) [Entitic vol] 10.6 fL 8.1 - 13.5 fL [facility] Platelets (Bld) [#/Vol] 214 10*3/uL [facility] RBC (Bld) [#/Vol] 3.08 10*6/uL Low 4.21 - 5.7 7 m/uL [facility] Segmented neutrophils/100 WBC (Bld) 15.23 % High [facility] WBC other (Bld) [#/Vol] 17.6 High [facility] CBC with Diffon 09-29-2024 Abs. Basophil 0.05 k/uL Normal 0.00-0.20 [facility] Comment on above: Performed By: #### C DP ####[facility] [address] [place] [address] [facility] Director: Ramiro Mark MD Abs. Eosinophil <0.03 Normal 0.00-0.44 [facility] Comment on above: Performed By: #### C DP ####[address] [phone] Director: Ramiro Mark MD Abs.Imm.Granulocyte 0.12 k/uL Normal 0.00-0.30 [facility] Comment on above: Performed By: #### C DP ####[address] [phone] Director: Ramiro Mark MD Abs.Neutrophil (Seg) 15.23 k/uL High 1.50-8.10 [facility] Comment on above: Performed By: #### C DP ####[address] [phone] Director: Ramiro Mark MD Basophils/100 WBC (Bld) 0 % Normal 0-2 [facility] Comment on above: Performed By: #### C DP ####[address] [address])[phone] Director: Ramiro Mark MD Eosinophils/100 WBC (Bld) 0 % Low 1-4 [facility] Comment on above: Performed By: #### C DP ####[address] [address])[phone] Director: Ramiro Mark MD Erythrocyte distribution width (RBC) [Ratio] 13.1 % Normal 11.8-14.4 [facility] Comment on above: Performed By: #### C DP ####[address] [address])[phone] Director: Ramiro Mark MD Hematocrit (Bld) [Volume fraction] 26.1 % Low 40.7-50.3 [facility] Comment on above: Performed By: #### C DP ####[address] [address])[phone] Director: Ramiro Mark MD Hemoglobin (Bld) [Mass/Vol] 8.8 g/dL Low 13.0-17.0 [facility] Comment on above: Performed By: #### C DP ####[address] [phone] Director: Ramiro Mark MD Immature granulocytes/100 WBC (Bld) 1 % High 0 [facility] Comment on above: Performed By: #### C DP ####[place], [place] [address])[phone] Director: Ramiro Mark MD Lymphocytes (Bld) [#/Vol] 1.42 10*3/uL Normal 1.10-3.70 [facility] Comment on above: Performed By: #### C DP ####[place], [place] [address])[phone] Director: Ramiro Mark MD Lymphocytes/100 WBC (Bld) 8 % Low 24-43 [facility] Comment on above: Performed By: #### C DP ####[place], [place] [address])[phone] Director: Ramiro Mark MD MCH (RBC) [Entitic mass] 28.6 pg Normal 25.2-33.5 [facility] Comment on above: Performed By: #### C DP ####[place], [place] [address])[phone] Director: Ramiro Mark MD MCHC (RBC) [Mass/Vol] 33.7 g/dL Normal 28.4-34.[address] [facility] Comment on above: Performed By: #### C DP ####[place], [place] [address])[phone] Director: Ramiro Mark MD MCV (RBC) [Entitic vol] 84.7 fL Normal 82.6-102.9 [facility] Comment on above: Performed By: #### C DP ####[address] [place], [place] [phone] Director: Ramiro Mark MD Monocytes (Bld) [#/Vol] 0.81 10*3/uL Normal 0.10-1.20 [facility] Comment on above: Performed By: #### C DP ####[address] [phone] Director: Ramiro Mark MD Monocytes/100 WBC (Bld) 5 % Normal 3-12 [facility] Comment on above: Performed By: #### C DP ####[address] [phone] Director: Ramiro Mark MD Neutrophil (Seg) 86 % High 36-65 [facility] Comment on above: Performed By: #### C DP ####[address] [phone] Director: Ramiro Mark MD NRBC Automated 0.0 per 100 WBC Normal 0.0 [facility] Comment on above: Performed By: #### C DP ####[address] [phone] Director: Ramiro Mark MD Platelet mean volume (Bld) [Entitic vol] 10.6 fL Normal 8.1-13.5 [facility] Comment on above: Performed By: #### C DP ####[address] [phone] Director: Ramiro Mark MD Platelets (Bld) [#/Vol] 214 10*3/uL Normal 138-453 [facility] Comment on above: Performed By: #### C DP ####[address] [phone] Director: Ramiro Mark MD RBC (Bld) [#/Vol] 3.08 10*6/uL Low 4.21-5.77 [facility] Comment on above: Performed By: #### C DP ####[facility] [address] [place] [address] Lab Director: Ramiro Mark MD WBC (Bld) [#/Vol] 17.6 10*3/uL High 3.5-11.3 [facility] Comment on above: Performed By: #### C DP ####[facility] [address] [place] [address] Lab Director: Ramiro Mark MD Calcium, Ionicon 09-29-2024 Calcium [Moles/Vol] 1.20 mmol/L Normal 1.13-1.33 [facility] Comment on above: Performed By: #### I OCAL ####[facility] [address]zzuflvvomvl35[address] [place] [address] Lab Director: Ramiro Mark MD Calcium, Ionizedon Calcium.ionized (Bld) [Moles/Vol] 1.20 mmol/L 1.13 - 1.33 mmol/L [employer] Cardiac echo study Procedure Ordered By: Kika Raymond on 09-29-2024 Ao Root Index 1.71 cm/m2 [employer] Phone: Aortic Root 3.4 cm [employer] Work Phone: AV Area by Peak Velocity 2.6 cm2 [employer] Phone: AV Area by VTI 2.6 cm2 [employer] Phone: AV Mean Gradient 4 mmHg [employer] Work Phone: AV Mean Velocity 0.9 m/s [employer] Phone: AV Peak Gradient 7 mmHg [employer] Work Phone: AV Peak Velocity 1.4 m/s [employer] Work Phone: AV Velocity Ratio 0.71 Sharon Alkermes [employer] Work Phone: AV VTI 26.7 cm Sharon Alkermeselysia [employer] Work Phone: EZIO/BSA Peak Velocity 1.3 cm2/m2 Sharon [employer]kermesely[employer] Work Phone: EZIO/BSA VTI 1.3 cm2/m2 [employer] Work Phone: Body surface area Derived from formula 2 m2 Sharon [employer] Phone: E/E' Lateral 8.87 Sharon [employer]kermesely[employer] Phone: E/E' Ratio (Averaged) 9.20 [employer] Phone: E/E' Septal 9.54 [employer] Phone: EF BP 65 % 55 - 100 % [employer] Work Phone: Fractional Shortening 2D 43 % 28 - 44 % [employer] Work Phone: Global Longitudinal Strain -16.7 % Sharon [employer] Work Phone: Interpretation and review of laboratory results Abnormal Sharon [employer] Work Phone: IVSd 1.5 cm Abnormal 0.6 - 1.0 cm [employer] Work Phone: LA Area 2C 15.4 cm2 [employer] Work Phone: LA Area 4C 15.4 cm2 [employer] Work Phone: LA Diameter 2.9 cm [employer] Work Phone: LA Major [place] 4.7 cm [employer] Phone: LA Minor [place] 5.1 cm [employer] Phone: LA Size Index 1.46 cm/m2 [employer] Work Phone: LA Volume BP 36 mL 18 - 58 mL [employer] Work Phone: LA Volume Index BP 18 ml/m2 16 - 34 ml/m2 [employer] Work Phone: LA Volume Index MOD A2C 17 ml/m2 16 - 34 ml/m2 [employer] Work Phone: LA Volume Index MOD A4C 19 ml/m2 16 - 34 ml/m2 [employer] Work Phone: LA Volume MOD A2C 33 mL 18 - 58 mL [employer] Work Phone: LA Volume MOD A4C 37 mL 18 - 58 mL [employer] Work Phone: LA/AO Root Ratio 0.85 Bon [employer] Work Phone: LV E' Lateral Velocity 9.36 cm/s [employer] Work Phone: LV E' Septal Velocity 8.70 cm/s [employer] Work Phone: LV EDV A2C 65 mL [employer] Work Phone: LV EDV A4C 80 mL [employer] Work Phone: LV EDV Index A2C 33 mL/m2 [employer] Work Phone: LV EDV Index A4C 40 mL/m2 Bon [employer] Work Phone: LV Ejection Fraction A2C 66 % [employer] Work Phone: LV Ejection Fraction A4C 67 % [employer] Work Phone: LV ESV A2C 22 mL [employer] Work Phone: LV ESV A4C 27 mL [employer] Work Phone: LV ESV Index A2C 11 mL/m2 Bon [employer]kermes[employer] Work Phone: LV ESV Index A4C 14 mL/m2 Bon Sec[facility] [employer] Work Phone: LV Mass 2D 220.7 g 88 - 224 g [employer] Work Phone: LV Mass 2D Index 110.9 g/m2 49 - 115 g/m2 [employer] Phone: LV RWT Ratio 0.70 [employer] Phone: LVIDd 4.0 cm Abnormal 4.2 - 5.9 cm [employer] Phone: LVIDd Index 2.01 cm/m2 [employer] Phone: LVIDs 2.3 cm [employer] Phone: LVIDs Index 1.16 cm/m2 [employer] Phone: LVOT Area 3.5 cm2 [employer] Phone: LVOT Diameter 2.1 cm [employer] Phone: LVOT Mean Gradient 2 mmHg Bon [employer] Work Phone: LVOT Peak Gradient 4 mmHg Bon [employer] Phone: LVOT Peak Velocity 1.0 m/s [employer] Phone: LVOT Stroke Volume Index 34.8 mL/m2 [employer] Phone: LVOT SV 69.2 ml [employer] Phone: LVOT VTI 20.0 cm [employer] Phone: LVOT:AV VTI Index 0.75 [employer] Phone: LVPWd 1.4 cm Abnormal 0.6 - 1.0 cm [employer] Phone: MV A Velocity 0.75 m/s [employer] Phone: MV Area by VTI 3.0 cm2 [place] [employer] Work Phone: MV E Velocity 0.83 m/s [facility] [employer] Work Phone: MV E Wave Deceleration Time 134.0 ms [facility] [employer] Work Phone: MV E/A 1.11 [facility] [employer] Work Phone: MV Max Velocity 1.1 m/s [facility] [employer] Work Phone: MV Mean Gradient 2 mmHg Bon [facility] [employer] Work Phone: MV Mean Velocity 0.7 m/s Sharon [facility] urs [employer] Work Phone: MV Peak Gradient 5 mmHg Sharon Seco urs [employer] Work Phone: MV VTI 23.2 cm [facility] [employer] Work Phone: [phone] MV:LVOT VTI Index 1.16 Sharon Sec ours [employer] Work Phone: PV Max Velocity 1.1 m/s Sharon Secou [facility] [employer] Work Phone: [phone] PV Peak Gradient 5 mmHg Bon [facility] [employer] Work Phone: [phone] RA Area 4C 12.4 cm2 Sharon [employer] Work Phone: [phone] RA Volume 24 ml Sharon [employer] Work Phone: RA Volume Index A4C 12 mL/m2 [facility] [employer] Work Phone: RV Basal Dimension 2.9 cm Bon cours [employer] Work Phone: [phone] RV Free Wall Peak S' 13.1 cm/s [employer] Work Phone: TAPSE 3.0 cm 1.7 cm [facility] [employer] Work Phone: Sharon [employer] Work Phone: Cardiac echo study Procedure on 09-29-2024 [facility] CV CPACS Radiology Study observation (narrative) [facility]utter EKG 12 Leadon 09-29-2024 Atrial Rate [address] [facility] P [place] [address] [facility] P-R Interval [address] [facility] Q-T Interval [address] [facility] QRS Duration [address] [facility] QTc Calculation (Bazett) [address] [facility] R [place] [address] [facility] T [place] [address] [facility] Ventricular Rate 111 BPM [facility] MHPN STV MUSE [facility] Glucose (POC)on 09-29-2024 Glucose [Mass/Vol] 189 mg/dL High 74-100 [facility] Glucose,Whole Bloodon 2023 Glucose [Mass/Vol] 203 mg/dL High 75-110 [facility] Glucose [Mass/Vol] 289 mg/dL High 75-110 [facility] Glucose [Mass/Vol] 227 mg/dL High 75-110 [facility] Glucose [Mass/Vol] 229 mg/dL High 75-110 [facility] Glucose [Mass/Vol] 149 mg/dL High 75-110 [facility] Glucose [Mass/Vol] 187 mg/dL High 75-110 [facility] Glucose [Mass/Vol] 187 mg/dL High 75-110 [facility] Glucose [Mass/Vol] 214 mg/dL High 75-110 [facility] Glucose [Mass/Vol] 222 mg/dL High 75-110 [facility] Glucose [Mass/Vol] 205 mg/dL High 75-110 [facility] Glucose [Mass/Vol] 140 mg/dL High 75-110 [facility] Heparin Anti-Xaon 09-29-2024 Heparin Anti-Xa 0.51 IU/L Normal [facility] Comment on above: Result Comment: This test has not been validated or calibrated for therapies other than unfractionated heparin.Interpretation of the result in relation to other therapies must be done with caution and within clinical context. Performed By: #### H EPXA, BMP, MG, CHELO ####[facility] [address] [place] [address] Lab Director: Ramiro Mark MD Heparin Anti-Xa 0.28 IU/L Normal [facility] Comment on above: Result Comment: This test has not been validated or calibrated for therapies other than unfractionated heparin.Interpretation of the result in relation to other therapies must be done with caution and within clinical context. Performed By: #### H EPXA ####[facility] [address] [place] [address] lab Director: Ramiro Mark MD Heparin Anti-Xa 0.44 IU/L Normal [facility] Comment on above: Result Comment: This test has not been validated or calibrated for therapies other than unfractionated heparin.Interpretation of the result in relation to other therapies must be done with caution and within clinical context. Performed By: #### H EPXA ####[facility] [address] [place] [address] Lab Director: Ramiro Mark MD Lactic Acid (POC)on 09-29-20 24 Lactate [Moles/Vol] 1.4 mmol/L High 0.56-1.39 [facility] Lactic Acid, POCon 4 POC Lactic Acid 1.4 mmol/L High 0.56 - 1.39 mmol/L [facility] MRSA DNA Probe, Nasalon 09-16 MRSA, DNA, Nasal Negative NEGATIVE [facility] Specimen Description .NASAL SWAB [facility] MRSA, DNA, Nasalon 4 MRSA, DNA, Nasal Negative Normal NEG [facility] Comment on above: Result Comment: NEGA TIVE: MRSA DNA not detected by nucleic acid amplification.Results should be used as an adjunct to nosocomial control efforts to identify patients needing enhanced precautions.The test is not intended to identify patients with staphylococcal infections. Results should not be used to guide or monitor treatment for MRSA infections. Performed By: #### M RSANO ####[facility] [address] [place] [address] [id number] lab Director: Ramiro Mark MD Magnesiumon 09-29-2024 Magnesium [Mass/Vol] 2.2 mg/dL 1.6 - 2 .6 mg/dL [facility] Magnesium [Mass/Vol] 2.2 mg/dL Normal 1.6-2.6 [facility] Comment on above: Performed By: #### H EPXA, BMP, MG, CHELO ####[facility] [address] [place], [place] [id number] lab Director: Ramiro Makr MD Magnesium [Mass/Vol] 1.6 mg/dL Normal 1.6-2.[address] [facility] Comment on above: Performed By: #### F KLLC, PE, ANAX, PHEP, MG, CHELO, BMP ####[facility] [address] [place], [place] [id number] lab Director: Ramiro Mark MD Magnesium [Mass/Vol] 1.8 mg/dL 1.6 - 2 .6 mg/dL [facility] Magnesium [Mass/Vol] 1.8 mg/dL Normal 1.6-2.6 [facility] Comment on above: Performed By: #### B MP, MG, CHELO ####[facility] [address] [place], [place] [id number] lab Director: Ramiro Mark MD No Panel Informationon 09-29 [facility] Interpretation and review of laboratory results Abnormal [facility] POC Glucose Fingerstickon Glucose [Mass/Vol] 203 mg/dL High 75 - 110 mg/dL [facility] Interpretation and review of laboratory results Abnormal [facility] Glucose [Mass/Vol] 289 mg/dL High 75 - 110 mg/dL [facility] Interpretation and review of laboratory results Abnormal [facility] Glucose [Mass/Vol] 227 mg/dL High 75 - 110 mg/dL [facility] Interpretation and review of laboratory results Abnormal [facility] Glucose [Mass/Vol] 229 mg/dL High 75 - 110 mg/dL [facility] Interpretation and review of laboratory results Abnormal [facility] Glucose [Mass/Vol] 149 mg/dL High 75 - 110 mg/dL [facility] Interpretation and review of laboratory results Abnormal [facility] Glucose [Mass/Vol] 187 mg/dL High 75 - 110 mg/dL [facility] Interpretation and review of laboratory results Abnormal [facility] Glucose [Mass/Vol] 187 mg/dL High 75 - 110 mg/dL [facility] Interpretation and review of laboratory results Abnormal [facility] Glucose [Mass/Vol] 214 mg/dL High 75 - 110 mg/dL [facility] Interpretation and review of laboratory results Abnormal [facility] Glucose [Mass/Vol] 222 mg/dL High 75 - 110 mg/dL [facility] Interpretation and review of laboratory results Abnormal [facility] Glucose [Mass/Vol] 205 mg/dL High 75 - 110 mg/dL [facility] Interpretation and review of laboratory results Abnormal [facility] Glucose [Mass/Vol] 140 mg/dL High 75 - 110 mg/dL [facility] Interpretation and review of laboratory results Abnormal [facility] POCT Glucoseon 09-29-2024 Glucose [Mass/Vol] 189 mg/dL High 74 - 100 mg/dL [facility] Phosphoruson 09-29-2024 Phosphate [Mass/Vol] 4.5 mg/dL 2.5 - 4 .5 mg/dL [facility] Phosphate [Mass/Vol] 3.4 mg/dL 2.5 - 4 .5 mg/dL [facility] Phosphate [Mass/Vol] 4.2 mg/dL 2.5 - 4 .5 mg/dL [facility] Phosphorus, Inorg.on 024 Phosphorus, Inorg. 4.5 mg/dL Normal 2.5-4.5 [facility] Comment on above: Performed By: #### H EPXA, BMP, MG, CHELO ####[facility] [address] [place] [address] Lab Director: Ramiro Mark MD Phosphorus, Inorg. 3.4 mg/dL Normal 2.5-4.5 [facility] Comment on above: Performed By: #### F KLLC, PE, ANAX, PHEP, MG, CHELO, BMP ####[facility] [address] [place] [address] Lab Director: Ramiro Mark MD Phosphorus, Inorg. 4.2 mg/dL Normal 2.5-4.5 [facility] Comment on above: Performed By: #### B MP, MG, CHELO ####[facility] [address] [place] [address] Lab Director: Ramiro Mark MD US Kidneyon 09-29-2024 MHPN RIS CONSOLIDATED [facility] RIS CONSOLIDATED [facility] KidneyOrdered By: Isai pal on 09-29-[address] [facility] Work Phone: US RENAL COMPLETEon 09-29-20 US RENAL COMPLETE Normal [facility] APTTon 09-28-2024 aPTT Coag (Bld) [Time] 20.2 s Low Trip [facility] Interpretation and review of laboratory results Abnormal [facility] aPTT Coag (Bld) [Time] 20.2 s Low 23.0-36.5 [facility] Comment on above: Result Comment: IV H eparin Therapy Range:66.0-92.0 sec Performed By: #### H EPXA, CBC, PT, PTT ####[facility] [address] [place] [address] Lab Director: Ramiro Mark MD Ammoniaon 09-28-2024 Ammonia (P) [Moles/Vol] 27 umol/L umol/L [facility] Ammonia (P) [Moles/Vol] 27 umol/L Normal [facility] Comment on above: Performed By: #### L ACTIC #### [facility] [address] [place] [address] Retail Salesworker: Ramiro Santillan MD Anti-Xa, Unfractionated Hepa rinon 09-28-2024 Anti-XA Unfrac Heparin <0.10 IU/L Trip [facility] Arterial Bld Gas,POCon 09-28 Jody Test Positive Normal [facility] FIO2 40.0 Normal [facility] HCO3 (Bld) [Moles/Vol] 25.6 mmol/L Normal 21.0-28.0 [facility] Oxygen saturation in Blood 99.7 % High 94.0-98.0 [facility] pCO2, Arterial 42.0 mm Hg Normal 35.0-48.0 [facility] pH, Arterial 7.394 Normal 7.350-7.450 [facility] pO2, Arterial 201.7 mm Hg High 83.0-108.0 [facility] Positive Base Excess (calc) 0.6 mmol/L Normal 0.0-3.0 [facility] Site Drawn Right Radial Artery Normal [facility] Arterial Blood Gas, POCon Jody Test Positive [facility] FIO2 40.[address] [facility] HCO3 (Bld) [Moles/Vol] 25.6 mmol/L 21.0 - 28.0 mmol/L [facility] Interpretation and review of laboratory results Abnormal [facility] Oxygen saturation in Blood 99.7 % High 94.0 - 98.0 % [facility] POC pCO2 42.[address] [facility] POC pH 7.394 7.350 - 7.[address] [facility] POC PO2 201.[address] [facility] Positive Base Excess, Art 0.6 mmol/L 0.0 - 3.0 mmol/L [facility] Sample Site Right Radial Artery [facility] Arterial Blood Gaseson 09-28 Jody Test YES [facility] Comment on above: Performed By: #### L ACTIC #### [facility] [address] [place] [address] Retail Salesworker: Ramiro Santillan MD Body Temp. 37.0 [facility] Comment on above: Performed By: #### L ACTIC #### [facility] [address] [place] [address] Retail Salesworker: Ramiro Santillan MD FIO2 21 [facility] Comment on above: Performed By: #### L ACTIC #### [facility] [address] [place], [place] [id number] Retail Salesworker: Ramiro Santillan MD HCO3 (Bld) [Moles/Vol] 20.6 mmol/L Low 22-26 M [facility] Comment on above: Performed By: #### L ACTIC #### [facility] [address] [place] [address] [employer]worker: Ramiro Santillan MD Negative Base Excess 3.7 mmol/L High 0.0-2.0 [facility] Comment on above: Performed By: #### L ACTIC #### [facility] [address] [place] [address] Retail Salesworker: Ramiro Santillan MD O2 Device/Flow/% ROOM AIR [facility] Comment on above: Performed By: #### L ACTIC #### [facility] [address] [place] [address] Retail Salesworker: Ramiro Santillan MD Oxygen (Bld) [Partial pressure] 72.2 mm[Hg] Low 80.0-100.0 [facility] Comment on above: Performed By: #### L ACTIC #### [facility] [address] [place], [place] [phone] Retail Salesworker: Ramiro Santillan MD Oxygen saturation in Blood 94.5 % Low 95-98 [facility] Comment on above: Performed By: #### L ACTIC #### [facility] [address] [place], [place] [id number] Retail Salesworker: Ramiro Santillan MD pCO2 35.2 mmHg Normal 35-45 [facility] Comment on above: Performed By: #### L ACTIC #### [facility] [address] [place], [place] [id number] Retail Salesworker: Ramiro Santillan MD pCO2 Adj'd for Temp 35.2 Normal 35.0-45.0 [facility] Comment on above: Performed By: #### L ACTIC #### [facility] [address] [place], [place] [phone] Retail Salesworker: Ramiro Santillan MD pH (Bld) 7.385 [pH] Normal 7.35-7.45 [facility] Comment on above: Performed By: #### L ACTIC #### [address] [place], [place] [phone] Retail Salesworker: Ramiro Santillan MD pH Adjst'd for Temp. 7.385 Normal 7.350-7.[address] [facility] Comment on above: Performed By: #### L ACTIC #### [facility] [address] [place], [place] [phone] Retail Salesworker: Ramiro Santillan MD pO2 Adjst'd for Temp 72.2 mmHg Low 80.0-100.0 [facility] Comment on above: Performed By: #### L ACTIC #### [address] [place] [address] Retail Salesworker: Ramiro Santillan MD Site Drawn Left Radial Artery Normal [facility] Comment on above: Performed By: #### L ACTIC #### [facility] [address] [place] [address] Retail Salesworker: Ramiro Santillan MD Basic Metab w/rfx MGon 09-28 Anion gap [Moles/Vol] 12 mmol/L Normal 9-[address] [facility] Comment on above: Performed By: #### A GLYCO ####[facility] [address] [place] [address] Lab Director: Wil Swanson MD#### SED, PRCAL, MYCM, CDP, BMPX, TROPI, GLYHGB, IOCAL, LACTIC, CRP ####[address] [id number] Lab Director: Ramiro Mark MD Calcium [Mass/Vol] 8.5 mg/dL Low 8.6-10.4 [facility] Comment on above: Performed By: #### A GLYCO ####[facility] [address] [place] [address] Lab Director: Wil Swanson MD#### SED, PRCAL, MYCM, CDP, BMPX, TROPI, GLYHGB, IOCAL, LACTIC, CRP ####[place] [place], [place] [phone] Lab Director: Ramiro Mark MD Chloride [Moles/Vol] 103 mmol/L Normal 98-107 [facility] Comment on above: Performed By: #### A GLYCO ####[facility] [address] [place] [address] Lab Director: Wil Swanson MD#### SED, PRCAL, MYCM, CDP, BMPX, TROPI, GLYHGB, IOCAL, LACTIC, CRP ####[facility] [address] [place], [place] [id number] Lab Director: Ramiro Mark MD CO2 [Moles/Vol] 22 mmol/L Normal 20-31 [facility] Comment on above: Performed By: #### A GLYCO ####[facility] [address] [place], [place] [id number] Lab Director: Wil Swanson MD#### SED, PRCAL, MYCM, CDP, BMPX, TROPI, GLYHGB, IOCAL, LACTIC, CRP ####[facility] [address] [place], [place] 0658008 Lab Director: Ramiro Mark MD Creatinine [Mass/Vol] 2.3 mg/dL High 0.7-1.[address] [facility] Comment on above: Performed By: #### A GLYCO ####[facility] [address] [place], [place] [id number] Lab Director: Wil Swanson MD#### SED, PRCAL, MYCM, CDP, BMPX, TROPI, GLYHGB, IOCAL, LACTIC, CRP ####[facility] [address] [place], [place] [id number] Lab Director: Ramiro Mark MD GFR/1.73 sq M.predicted among non-blacks MDRD (S/P/Bld) [Vol rate/Area] 34 mL/min/{1.73_m2} Low >60 [facility] Comment on above: Result Comment: Thes [...] secretion. Performed By: #### A GLYCO ####[facility] [address] [place] [address] Lab Director: Wil Swnason MD#### SED, PRCAL, MYCM, CDP, BMPX, TROPI, GLYHGB, IOCAL, LACTIC, CRP ####[facility] [address]fs[address] [place] [address] Lab Director: Ramiro Mark MD Glucose [Mass/Vol] 316 mg/dL High 74-99 [facility] Comment on above: Performed By: #### A GLYCO ####[facility] [address] [place] [address] [id number] Lab Director: Wil Swanson MD#### SED, PRCAL, MYCM, CDP, BMPX, TROPI, GLYHGB, IOCAL, LACTIC, CRP ####[facility] [address] [place] [address] Lab Director: Ramiro Mark MD Potassium [Moles/Vol] 4.2 mmol/L Normal 3.7-5.[address] [facility] Comment on above: Performed By: #### A GLYCO ####[facility] [address] [place] [address] Lab Director: Wil Swanson MD#### SED, PRCAL, MYCM, CDP, BMPX, TROPI, GLYHGB, IOCAL, LACTIC, CRP ####[facility] [address] [place] [address] Lab Director: Ramiro Mark MD Sodium [Moles/Vol] 137 mmol/L Normal 136-145 [facility] Comment on above: Performed By: #### A GLYCO ####[facility] [address] [place] [id number] Lab Director: Wil Swanson MD#### SED, PRCAL, MYCM, CDP, BMPX, TROPI, GLYHGB, IOCAL, LACTIC, CRP ####[facility] [address] [place] [address] [id number] Lab Director: Ramiro Mark MD Urea nitrogen [Mass/Vol] 41 mg/dL High 6-20 [facility] Comment on above: Performed By: #### A GLYCO ####[facility] [address] [place] [address] Lab Director: Wil Swanson MD#### SED, PRCAL, MYCM, CDP, BMPX, TROPI, GLYHGB, IOCAL, LACTIC, CRP ####[facility] [address] [place] [address] Lab Director: Ramiro Mark MD Basic Metabolic Panel 12- Anion gap [Moles/Vol] 11 mmol/L 9 - 16 mmol/L [facility] Calcium [Mass/Vol] 7.6 mg/dL Low 8.6 - 10. 4 mg/dL [facility] Chloride [Moles/Vol] 102 mmol/L 98 - 10 7 mmol/L [facility] CO2 [Moles/Vol] 21 mmol/L 20 - 31 mmol/L [facility] Creatinine [Mass/Vol] 2.2 mg/dL High 0.7 - 1.2 mg/dL [facility] [employer] Est, Glom Filt Rate 36 Low - PINF [facility] Glucose [Mass/Vol] 415 mg/dL Critically high 74 - 9 9 mg/dL [facility] Interpretation and review of laboratory results Abnormal [facility] Potassium [Moles/Vol] 3.8 mmol/L 3.7 - 5.3 mmol/L [facility] Sodium [Moles/Vol] 134 mmol/L Low 136 - 145 mmol/L [facility] Urea nitrogen [Mass/Vol] 37 mg/dL High 6 - 20 mg/dL [facility] Anion gap [Moles/Vol] 10 mmol/L 9 - 16 mmol/L [facility] Calcium [Mass/Vol] 8.5 mg/dL Low 8.6 - 10. 4 mg/dL [facility] Chloride [Moles/Vol] 104 mmol/L 98 - 10 7 mmol/L [facility] CO2 [Moles/Vol] 22 mmol/L 20 - 31 mmol/L [facility] [employer] [facility] Creatinine [Mass/Vol] 2.3 mg/dL High 0.7 - 1.2 mg/dL [facility] Est, Glom Filt Rate 34 Low - PINF [facility] Glucose [Mass/Vol] 241 mg/dL High 74 - 99 mg/dL [facility] Potassium [Moles/Vol] 3.9 mmol/L 3.7 - 5.3 mmol/L [facility] Sodium [Moles/Vol] 136 mmol/L 136 - 145 mmol/L [facility] Urea nitrogen [Mass/Vol] 40 mg/dL High 6 - 20 mg/dL [facility] Basic Metabolic Panel w/ Ref jose to MGon 09-28-2024 Anion gap [Moles/Vol] 12 mmol/L 9 - 16 mmol/L [facility] Calcium [Mass/Vol] 8.5 mg/dL Low 8.6 - 10. 4 mg/dL [facility] Chloride [Moles/Vol] 103 mmol/L 98 - 10 7 mmol/L [facility] CO2 [Moles/Vol] 22 mmol/L 20 - 31 mmol/L [facility] Creatinine [Mass/Vol] 2.3 mg/dL High 0.7 - 1.2 mg/dL [facility] Est, Glom Filt Rate 34 Low - PINF [facility] Glucose [Mass/Vol] 316 mg/dL High 74 - 99 mg/dL [facility] Potassium [Moles/Vol] 4.2 mmol/L 3.7 - 5.3 mmol/L [facility] Sodium [Moles/Vol] 137 mmol/L 136 - 145 mmol/L [facility] Urea nitrogen [Mass/Vol] 41 mg/dL High 6 - 20 mg/dL [facility] Basic Metabolic Profon 09-28 Anion gap [Moles/Vol] 11 mmol/L Normal 9-16 [facility] Comment on above: Performed By: #### L ACTIC, BMP, MG, CHELO ####[facility] [address] [place] [address] [facility] Director: Ramiro Mark MD Calcium [Mass/Vol] 7.6 mg/dL Low 8.6-10.4 [facility] Comment on above: Performed By: #### L ACTIC, BMP, MG, CHELO ####[facility] [address] [place] [address] Lab Director: Ramiro Mark MD Chloride [Moles/Vol] 102 mmol/L Normal 98-107 [facility] Comment on above: Performed By: #### L ACTIC, BMP, MG, CHELO ####[facility] [address] [place], [place] [id number] Director: Ramiro aMrk MD CO2 [Moles/Vol] 21 mmol/L Normal 20-31 [facility] Comment on above: Performed By: #### L ACTIC, BMP, MG, CHELO ####[facility] [address] [place] [address] Lab Director: Ramiro Mark MD Creatinine [Mass/Vol] 2.2 mg/dL High 0.7-1.[address] [facility] Comment on above: Performed By: #### L ACTIC, BMP, MG, CHELO ####[facility] [address] [place] [address] Lab Director: Ramiro Mark MD GFR/1.73 sq M.predicted among non-blacks MDRD (S/P/Bld) [Vol rate/Area] 36 mL/min/{1.73_m2} Low >60 [facility] Comment on above: Result Comment: Thes [...] #### L ACTIC, BMP, MG, CHELO ####[facility] [address] [place] [address] Lab Director: Ramiro Mark MD Glucose [Mass/Vol] 415 mg/dL Critically high 74-99 [facility] Comment on above: Performed By: #### L ACTIC, BMP, MG, CHELO ####[facility] [address] [place] [address] Lab Director: Raimro Mark MD Potassium [Moles/Vol] 3.8 mmol/L Normal 3.7-5.[address] [facility] Comment on above: Performed By: #### L ACTIC, BMP, MG, CHELO ####[facility] [address] [place] [address] Lab Director: Ramiro Mark MD Sodium [Moles/Vol] 134 mmol/L Low 136-145 [facility] Comment on above: Performed By: #### L ACTIC, BMP, MG, CHELO ####[facility] [address] [place] [address] Lab Director: Ramiro Mark MD Urea nitrogen [Mass/Vol] 37 mg/dL High 6-20 [facility] Comment on above: Performed By: #### L ACTIC, BMP, MG, CHELO ####[facility] [address] [place] [address] Lab Director: Ramiro Mark MD Anion gap [Moles/Vol] 10 mmol/L Normal 9-[address] [facility] Comment on above: Performed By: #### L ACTIC, BMP, TROPI, MG, CHELO ####[facility] [address] [place] [address] Lab Director: Ramiro Mark MD Calcium [Mass/Vol] 8.5 mg/dL Low 8.6-10.4 [facility] Comment on above: Performed By: #### L ACTIC, BMP, TROPI, MG, CHELO ####[facility] [address] [place] [address] Lab Director: Ramiro Mark MD Chloride [Moles/Vol] 104 mmol/L Normal 98-107 [facility] Comment on above: Performed By: #### L ACTIC, BMP, TROPI, MG, CHELO ####[facility] [address] [place] [address] Lab Director: Ramiro Mark MD CO2 [Moles/Vol] 22 mmol/L Normal 20-31 [facility] Comment on above: Performed By: #### L ACTIC, BMP, TROPI, MG, CHELO ####[facility] [address] [place] [address] Lab Director: Ramiro Mark MD Creatinine [Mass/Vol] 2.3 mg/dL High 0.7-1.[address] [facility] Comment on above: Performed By: #### L ACTIC, BMP, TROPI, MG, CHELO ####[facility] [address] [place], [place] [address])[phone] Director: Ramiro Mark MD GFR/1.73 sq M.predicted among non-blacks MDRD (S/P/Bld) [Vol rate/Area] 34 mL/min/{1.73_m2} Low >60 [facility] Comment on above: Result Comment: Thes [...] L ACTIC, BMP, TROPI, MG, CHELO ####[facility] [address] [place] [address] Lab Director: Ramiro Mark MD Glucose [Mass/Vol] 241 mg/dL High 74-99 [facility] Comment on above: Performed By: #### L ACTIC, BMP, TROPI, MG, CHELO ####[address] [place] [address] Lab Director: Ramiro Mark MD Potassium [Moles/Vol] 3.9 mmol/L Normal 3.7-5.[address] [facility] Comment on above: Result Comment: Spec imen hemolysis has exceeded the interference as defined by Jaime. Value may be falsely increased. Suggest recollection if clinically indicated. Performed By: #### L ACTIC, BMP, TROPI, MG, CHELO ####[facility] [address] [place] [address] Lab Director: Ramiro Mark MD Sodium [Moles/Vol] 136 mmol/L Normal 136-145 [facility] Comment on above: Performed By: #### L ACTIC, BMP, TROPI, MG, CHELO ####[address] [address] Lab Director: Ramiro Mark MD Urea nitrogen [Mass/Vol] 40 mg/dL High 6-20 [facility] Comment on above: Performed By: #### L ACTIC, BMP, TROPI, MG, CHELO ####[address] [address] Lab Director: Ramiro Mark MD GFR/1.73 sq M.predicted among non-blacks MDRD (S/P/Bld) [Vol rate/Area] 56 mL/min/{1.73_m2} Low >60 [facility] Comment on above: Result Comment: These results [...] secretion. Performed By: #### B MP #### [facility] [address] [place] [address] Retail Salesworker: Ramiro Santillan MD Anion gap [Moles/Vol] 15 mmol/L Normal 9-[address] [facility] Comment on above: Performed By: #### B MP #### [facility] [address] [place], [place] [phone] Retail Salesworker: Ramiro Santillan MD BUN/CRE Ratio 22 High 9-20 [facility] Comment on above: Performed By: #### B MP #### [facility] [address] [place], [place] [id number] Retail Salesworker: Ramiro Santillan MD Calcium [Mass/Vol] 6.1 mg/dL Low 8.6-10.4 [facility] Comment on above: Performed By: #### B MP #### [facility] [address] [place], [place] [phone] Retail Salesworker: Ramiro Santillan MD Chloride [Moles/Vol] 99 mmol/L Normal 98-107 [facility] Comment on above: Performed By: #### B MP #### [facility] [address] [place] [address] Retail Salesworker: Ramiro Santillan MD CO2 [Moles/Vol] 15 mmol/L Low 20-31 [facility] Comment on above: Performed By: #### B MP #### [facility] [address] [place] [address] Retail Salesworker: Ramiro Santillan MD Creatinine [Mass/Vol] 1.5 mg/dL High 0.70-1.[address] [facility] Comment on above: Performed By: #### B MP #### [facility] [address] [place] [address] Retail Salesworker: Ramiro Santillan MD Glucose [Mass/Vol] 657 mg/dL Critically high 74-99 [facility] Comment on above: Performed By: #### B MP #### [facility] [address] [place] [address] Retail Salesworker: Ramiro Santillan MD Potassium [Moles/Vol] 3.6 mmol/L Low 3.7-5.[address] [facility] Comment on above: Result Comment: Spec imen hemolysis has exceeded the interference as defined by Jaime. Value may be falsely increased. Suggest recollection if clinically indicated. Performed By: #### B MP #### [facility] [address] [place] [address] [place] [address] Retail Salesworker: Ramiro Santillan MD Sodium [Moles/Vol] 129 mmol/L Low 136-145 [facility] Comment on above: Performed By: #### B MP #### [address] [place] [address] Retail Salesworker: Ramiro Santillan MD Urea nitrogen [Mass/Vol] 33 mg/dL High 6-20 [facility] Comment on above: Performed By: #### B MP #### [facility] [address] [place] [address] [place] [address] Retail Salesworker: Ramiro Santillan MD Beta Hydroxybutyrateon 09-28 Beta Hydroxybutyrate 2.64 mmol/L High 0.02-0.[address] [facility] Comment on above: Performed By: #### B H #### [facility] [address] [place] [address] [place] [address] Retail Salesworker: Ramiro Santillan MD Beta-Hydroxybutyrateon 09-28 Beta hydroxybutyrate [Mass/Vol] 2.64 mmol/L High 0.02 - 0.27 mmol/L [facility] Interpretation and review of laboratory results Abnormal [facility] Blood Gas, Arterialon 2023 Arterial patency Wrist artery --pre arterial puncture YES [facility] Body site Left Radial Artery Bon [facility] HCO3 (Bld) [Moles/Vol] 20.6 mmol/L Low 22 - 26 mmol/L [facility] Interpretation and review of laboratory results Abnormal [facility] Negative Base Excess, Art 3.7 mmol/L High 0.0 - 2.0 mmol/L [facility] Oxygen gas flow Oxygen delivery system ROOM AIR [facility] Oxygen saturation in Blood 94.5 % Low 95 - 98 % [facility] Oxygen/Inspired gas Respiratory system --on ventilator [address] [facility] pCO2, Art, Temp Adj 35.2 35.0 - 45.[address] [facility] pCO2, Arterial 35.2 [facility] pH, Art, Temp Adj 7.385 7.350 - 7.[address] [facility] pH, Arterial 7.385 7.35 - 7.[address] [facility] pO2, Art, Temp Adj 72.2 Low [facility] pO2, Arterial 72.2 Low [facility] Blood Gas, Venouson 09-28-20 Arterial patency Wrist artery --pre arterial puncture NOT APPLICABLE [facility] HCO3 (Bld) [Moles/Vol] 21.0 mmol/L Low 24.0 - 30.0 mmol/L [facility] Interpretation and review of laboratory results Abnormal [facility] Negative Base Excess, Mc 4.3 mmol/L High 0.0 - 2.0 mmol/L [facility] Oxygen gas flow Oxygen delivery system VENTILATOR [facility] Oxygen saturation in Blood 99.0 % High 60.0 - 85.0 % [facility] Oxygen/Inspired gas Respiratory system --on ventilator [address] [facility] pCO2, Mc 39.[address] [facility] pCO2, Mc, Temp Adj 39.[address] [facility] pH, Mc 7.341 7.32 - 7.[address] [facility] pH, Mc, Temp Adj 7.341 7.320 - 7.[address] [facility] PO2, Mc 164.[address] [facility] pO2, Mc, Temp Adj 164.8 High [facility] Brain Natri. Peptideon 09-28 Natriuretic peptide B (Bld) [Mass/Vol] 964 pg/mL High 0-125 [facility] Comment on above: Performed By: #### T SUSAN RAYMOND, CHIQUI, PT, BNP, CP #### [facility] [address] [place] [address] Retail Salesworker: Ramiro Santillan MD Brain Natriuretic Peptideon 09-28-2024 Natriuretic peptide B (Bld) [Mass/Vol] 964 pg/mL High 0 - 125 pg/mL [facility] C-Reactive Proteinon 024 CRP High sensitivity method [Mass/Vol] 8.9 mg/L High 0.0 - 5.0 mg/L [facility] CRP [Mass/Vol] 8.9 mg/L High 0.0-5.0 [facility] Comment on above: Performed By: #### A GLYCO ####[facility] [address] [place] [address] Lab Director: Wil Swanson MD#### SED, PRCAL, MYCM, CDP, BMPX, TROPI, GLYHGB, IOCAL, LACTIC, CRP ####[facility] [address] [place], [place] 1848[address] Lab Director: Ramiro Mark MD CBCon 09-28-2024 Erythrocyte distribution width (RBC) [Ratio] 13.0 % 11.8 - 14.4 % [facility] Hematocrit (Bld) [Volume fraction] 28.8 % Low 40.7 - 50.3 % [facility] Hemoglobin (Bld) [Mass/Vol] 9.5 g/dL Low 13.0 - 17.0 g/dL [facility] Interpretation and review of laboratory results Abnormal [facility] MCH (RBC) [Entitic mass] 28.5 pg 25.2 - 33.[address] [facility] MCHC (RBC) [Mass/Vol] 33.0 g/dL 28.4 - 34.8 g/dL [facility] MCV (RBC) [Entitic vol] 86.5 fL 82.6 - 102.[address] [facility] Nucleated RBC/100 WBC (Bld) [Ratio] 0.0 % 0.0 per [address] [facility] Platelet mean volume (Bld) [Entitic vol] 10.4 fL 8.1 - 13.[address] [facility] Platelets (Bld) [#/Vol] 226 10*3/uL [facility] RBC (Bld) [#/Vol] 3.33 10*6/uL Low 4.21 - 5.7 7 m/uL [facility] WBC other (Bld) [#/Vol] 17.2 High [facility] Erythrocyte distribution width (RBC) [Ratio] 13.0 % Normal 11.8-14.4 [facility] Comment on above: Performed By: #### H EPXA, CBC, PT, PTT ####[facility] [address] [place] [address] Lab Director: Ramiro Mark MD Hematocrit (Bld) [Volume fraction] 28.8 % Low 40.7-50.3 [facility] Comment on above: Performed By: #### H EPXA, CBC, PT, PTT ####[facility] [address] [place] [address] Lab Director: Ramiro Mark MD Hemoglobin (Bld) [Mass/Vol] 9.5 g/dL Low 13.0-17.0 [facility] Comment on above: Performed By: #### H EPXA, CBC, PT, PTT ####[facility] [address] [place] [address] Lab Director: Ramiro Mark MD MCH (RBC) [Entitic mass] 28.5 pg Normal 25.2-33.5 [facility] Comment on above: Performed By: #### H EPXA, CBC, PT, PTT ####[facility] [address] [place] [address] Lab Director: Ramiro Mark MD MCHC (RBC) [Mass/Vol] 33.0 g/dL Normal 28.4-34.[address] [facility] Comment on above: Performed By: #### H EPXA, CBC, PT, PTT ####[facility] [address] [place], [place] [address])[phone] Director: Ramiro Mark MD MCV (RBC) [Entitic vol] 86.5 fL Normal 82.6-102.9 [facility] Comment on above: Performed By: #### H EPXA, CBC, PT, PTT ####[address] [address])[phone] Director: Ramiro Mark MD NRBC Automated 0.0 per 100 WBC Normal 0.0 [facility] Comment on above: Performed By: #### H EPXA, CBC, PT, PTT ####[address] [address])[phone] Director: Ramiro Mark MD Platelet mean volume (Bld) [Entitic vol] 10.4 fL Normal 8.1-13.5 [facility] Comment on above: Performed By: #### H EPXA, CBC, PT, PTT ####[address] [address])[phone] Director: Ramiro Mark MD Platelets (Bld) [#/Vol] 226 10*3/uL Normal 138-453 [facility] Comment on above: Performed By: #### H EPXA, CBC, PT, PTT ####[address] [address])[phone] Director: Ramiro Mark MD RBC (Bld) [#/Vol] 3.33 10*6/uL Low 4.21-5.77 [facility] Comment on above: Performed By: #### H EPXA, CBC, PT, PTT ####[facility] [address] [place], [place] [address])[phone] Director: Ramiro Mark MD WBC (Bld) [#/Vol] 17.2 10*3/uL High 3.5-11.3 [facility] Comment on above: Performed By: #### H EPXA, CBC, PT, PTT ####[facility] [address] [place] [address] lab Director: Ramiro Mark MD CBC with Auto Differentialon 09-28-2024 Basophils (Bld) [#/Vol] 0.06 10*3/uL [facility] Basophils/100 WBC (Bld) 0 % 0 - 2 % [facility] Eosinophils (Bld) [#/Vol] [facility] Eosinophils/100 WBC (Bld) 0 % Low 1 - 4 % [facility] Erythrocyte distribution width (RBC) [Ratio] 13.0 % 11.8 - 14.4 % [facility] Hematocrit (Bld) [Volume fraction] 27.4 % Low 40.7 - 50.3 % [facility] Hemoglobin (Bld) [Mass/Vol] 9.6 g/dL Low 13.0 - 17.0 g/dL [facility] Immature granulocytes (Bld) [#/Vol] 0.06 10*3/uL [facility] Immature granulocytes/100 WBC (Bld) 0 % 0 [facility] Interpretation and review of laboratory results Abnormal [facility] Lymphocytes/100 WBC (Bld) 5 % Low 24 - 43 % [facility] Lymphocytes/100 WBC (Bld) 0.78 % Low [facility] MCH (RBC) [Entitic mass] 28.7 pg 25.2 - 33.5 pg [facility] MCHC (RBC) [Mass/Vol] 35.0 g/dL High 28.4 - 34.8 g/dL [facility] MCV (RBC) [Entitic vol] 82.0 fL Low 82.6 - 102.9 fL [facility] Monocytes/100 WBC (Bld) 8 % 3 - 12 % [facility] Monocytes/100 WBC (Bld) 1.35 % High [facility] Neutrophils/100 WBC (Bld) 87 % High 36 - 65 % [facility] Nucleated RBC/100 WBC (Bld) [Ratio] 0.0 % 0.0 per [address] [facility] Platelet mean volume (Bld) [Entitic vol] 10.5 fL 8.1 - 13.[address] [facility] Platelets (Bld) [#/Vol] 240 10*3/uL [facility] RBC (Bld) [#/Vol] 3.34 10*6/uL Low 4.21 - 5.7 7 m/uL [facility] RBC (Bld) [#/Vol] MICROCYTOSIS PRESENT [facility] Segmented neutrophils/100 WBC (Bld) 14.81 % High [facility] WBC other (Bld) [#/Vol] 17.1 High [facility] Basophils (Bld) [#/Vol] 0.33 10*3/uL High [facility] Basophils/100 WBC (Bld) 2 % 0 - 2 % [facility] Eosinophils (Bld) [#/Vol] 0.00 10*3/uL [facility] Eosinophils/100 WBC (Bld) 0 % Low 1 - 4 % [facility] Erythrocyte distribution width (RBC) [Ratio] 12.8 % 11.8 - 14.4 % [facility] Hematocrit (Bld) [Volume fraction] 34.5 % Low 40.7 - 50.3 % [facility] Hemoglobin (Bld) [Mass/Vol] 12.1 g/dL Low 13.0 - 17.0 g/dL [facility] Immature granulocytes (Bld) [#/Vol] 0.00 10*3/uL [facility] Immature granulocytes/100 WBC (Bld) 0 % [address] [facility] Interpretation and review of laboratory results Abnormal [facility] Lymphocytes/100 WBC (Bld) 2 % Low 24 - 43 % [facility] Lymphocytes/100 WBC (Bld) 0.33 % Low [facility] MCH (RBC) [Entitic mass] 28.8 pg 25.2 - 33.[address] [facility] MCHC (RBC) [Mass/Vol] 35.1 g/dL High 28.4 - 34.8 g/dL [facility] MCV (RBC) [Entitic vol] 82.1 fL Low 82.6 - 102.9 fL [facility] Monocytes/100 WBC (Bld) 2 % Low 3 - 12 % [facility] Monocytes/100 WBC (Bld) 0.33 % [facility] Morphology Everardo (Bld) [Interp] Normal [facility] Neutrophils/100 WBC (Bld) 94 % High 36 - 65 % [facility] Nucleated RBC/100 WBC (Bld) [Ratio] 0.0 % 0.0 per 100 WBC [facility] Platelet mean volume (Bld) [Entitic vol] 10.9 fL 8.1 - 13.5 fL [facility] Platelets (Bld) [#/Vol] 291 10*3/uL [facility] RBC (Bld) [#/Vol] 4.20 10*6/uL Low 4.21 - 5.7 7 m/uL [facility] Segmented neutrophils/100 WBC (Bld) 15.71 % High [facility] WBC other (Bld) [#/Vol] 16.7 High [facility] CBC with Diffon 09-28-2024 Abs. Basophil 0.06 k/uL Normal 0.00-0.20 [facility] Comment on above: Performed By: #### A GLYCO ####[facility] [address] [place], [place] [id number] Lab Director: Wil Swanson MD#### SED, PRCAL, MYCM, CDP, BMPX, TROPI, GLYHGB, IOCAL, LACTIC, CRP ####[facility] [address] [place], [place] [id number] Lab Director: Ramiro Mark MD Abs. Eosinophil <0.03 Normal 0.00-0.44 [facility] Comment on above: Performed By: #### A GLYCO ####[facility] [address] [place], [place] [id number] Lab Director: Wil Swanson MD#### SED, PRCAL, MYCM, CDP, BMPX, TROPI, GLYHGB, IOCAL, LACTIC, CRP ####[facility] [address] [place] [address] Lab Director: Ramiro Mark MD Abs.Imm.Granulocyte 0.06 k/uL Normal 0.00-0.30 [facility] Comment on above: Performed By: #### A GLYCO ####[facility] [address] [place] [address] Lab Director: Wil Swanson MD#### SED, PRCAL, MYCM, CDP, BMPX, TROPI, GLYHGB, IOCAL, LACTIC, CRP ####[place] [address] Lab Director: Ramiro Mark MD Abs.Neutrophil (Seg) 14.81 k/uL High 1.50-8.10 [facility] Comment on above: Performed By: #### A GLYCO ####[facility] [address] [place] [address] Lab Director: Wil Swanson MD#### SED, PRCAL, MYCM, CDP, BMPX, TROPI, GLYHGB, IOCAL, LACTIC, CRP ####[place] [address] Lab Director: Ramiro Mark MD Basophils/100 WBC (Bld) 0 % Normal 0-2 [facility] Comment on above: Performed By: #### A GLYCO ####[facility] [address] [place] [address] Lab Director: Wil Swanson MD#### SED, PRCAL, MYCM, CDP, BMPX, TROPI, GLYHGB, IOCAL, LACTIC, CRP ####[facility] [address] [place], [place] [id number] Lab Director: Ramiro Mark MD Eosinophils/100 WBC (Bld) 0 % Low 1-4 [facility] Comment on above: Performed By: #### A GLYCO ####[facility] [address] [place] [address] Lab Director: Wil Swanson MD#### SED, PRCAL, MYCM, CDP, BMPX, TROPI, GLYHGB, IOCAL, LACTIC, CRP ####[facility] [address] [place] [address] [id number] Lab Director: Ramiro Mark MD Erythrocyte distribution width (RBC) [Ratio] 13.0 % Normal 11.8-14.4 [facility] Comment on above: Performed By: #### A GLYCO ####[facility] [address] [place] [address] Lab Director: Wil Swanson MD#### SED, PRCAL, MYCM, CDP, BMPX, TROPI, GLYHGB, IOCAL, LACTIC, CRP ####[address] [phone] Lab Director: Ramiro Mark MD Hematocrit (Bld) [Volume fraction] 27.4 % Low 40.7-50.3 [facility] Comment on above: Performed By: #### A GLYCO ####[facility] [address] [place] [address] [phone] Lab Director: Wil Swanson MD#### SED, PRCAL, MYCM, CDP, BMPX, TROPI, GLYHGB, IOCAL, LACTIC, CRP ####[facility] [address] [place], [place] [phone] Lab Director: Ramiro Mark MD Hemoglobin (Bld) [Mass/Vol] 9.6 g/dL Low 13.0-17.0 [facility] Comment on above: Performed By: #### A GLYCO ####[facility] [address] [place] [address] [phone] Lab Director: Wil Swanson MD#### SED, PRCAL, MYCM, CDP, BMPX, TROPI, GLYHGB, IOCAL, LACTIC, CRP ####[facility] [address] [place] [address] Lab Director: Ramiro Mark MD Immature granulocytes/100 WBC (Bld) 0 % Normal 0 [facility] Comment on above: Performed By: #### A GLYCO ####[facility] [address] [place] [address] Lab Director: Wil Swanson MD#### SED, PRCAL, MYCM, CDP, BMPX, TROPI, GLYHGB, IOCAL, LACTIC, CRP ####[place] [address] Lab Director: Ramiro Mark MD Lymphocytes (Bld) [#/Vol] 0.78 10*3/uL Low 1.10-3.70 [facility] Comment on above: Performed By: #### A GLYCO ####[facility] [address] [place] [address] Lab Director: Wil Swanson MD#### SED, PRCAL, MYCM, CDP, BMPX, TROPI, GLYHGB, IOCAL, LACTIC, CRP ####[place] [address] Lab Director: Ramiro Mark MD Lymphocytes/100 WBC (Bld) 5 % Low 24-43 [facility] Comment on above: Performed By: #### A GLYCO ####[facility] [address] [place] [address] Lab Director: Wil Swanson MD#### SED, PRCAL, MYCM, CDP, BMPX, TROPI, GLYHGB, IOCAL, LACTIC, CRP ####[facility] [address] [place] [address] [phone] Lab Director: Ramiro Mark MD MCH (RBC) [Entitic mass] 28.7 pg Normal 25.2-33.5 [facility] Comment on above: Performed By: #### A GLYCO ####[facility] [address] [place], [place] [phone] Lab Director: Wil Swanson MD#### SED, PRCAL, MYCM, CDP, BMPX, TROPI, GLYHGB, IOCAL, LACTIC, CRP ####[facility] [address] [place], [place] [id number] Lab Director: Ramiro Mark MD MCHC (RBC) [Mass/Vol] 35.0 g/dL High 28.4-34.[address] [facility] Comment on above: Performed By: #### A GLYCO ####[facility] [address] [place] [address] [id number] Lab Director: Wil Swanson MD#### SED, PRCAL, MYCM, CDP, BMPX, TROPI, GLYHGB, IOCAL, LACTIC, CRP ####[facility] [address] [place] [address] Lab Director: Ramiro Mark MD MCV (RBC) [Entitic vol] 82.0 fL Low 82.6-102.9 [facility] Comment on above: Performed By: #### A GLYCO ####[facility] [address] [place] [address] [id number] Lab Director: Wil Swanson MD#### SED, PRCAL, MYCM, CDP, BMPX, TROPI, GLYHGB, IOCAL, LACTIC, CRP ####[facility] [address] [place], [place] [id number] Lab Director: Ramiro Mark MD Monocytes (Bld) [#/Vol] 1.35 10*3/uL High 0.10-1.20 [facility] Comment on above: Performed By: #### A GLYCO ####[facility] [address] [place] [address] Lab Director: Wil Swanson MD#### SED, PRCAL, MYCM, CDP, BMPX, TROPI, GLYHGB, IOCAL, LACTIC, CRP ####[facility] [address] [place] [address] Lab Director: Ramiro Mark MD Monocytes/100 WBC (Bld) 8 % Normal 3-12 [facility] Comment on above: Performed By: #### A GLYCO ####[facility] [address]lv[address] [place] [address] Lab Director: Wil Swanson MD#### SED, PRCAL, MYCM, CDP, BMPX, TROPI, GLYHGB, IOCAL, LACTIC, CRP ####[address] [id number] Lab Director: Ramiro Mark MD Neutrophil (Seg) 87 % High 36-65 [facility] Comment on above: Performed By: #### A GLYCO ####[facility] [address] [place] [address] Lab Director: Wil Swanson MD#### SED, PRCAL, MYCM, CDP, BMPX, TROPI, GLYHGB, IOCAL, LACTIC, CRP ####[facility] [address] [place] [address] [id number] Lab Director: Ramiro Mark MD NRBC Automated 0.0 per 100 WBC Normal 0.0 [facility] Comment on above: Performed By: #### A GLYCO ####[facility] [address] [place] [address] Lab Director: Wil Swanson MD#### SED, PRCAL, MYCM, CDP, BMPX, TROPI, GLYHGB, IOCAL, LACTIC, CRP ####[facility] [address] [place], [place] [id number] Lab Director: Ramiro Mark MD Platelet mean volume (Bld) [Entitic vol] 10.5 fL Normal 8.1-13.5 [facility] Comment on above: Performed By: #### A GLYCO ####[facility] [address] [place] [address] Lab Director: Wil Swanson MD#### SED, PRCAL, MYCM, CDP, BMPX, TROPI, GLYHGB, IOCAL, LACTIC, CRP ####[facility] [address] [place] [address] Lab Director: Ramiro Mark MD Platelets (Bld) [#/Vol] 240 10*3/uL Normal 138-453 [facility] Comment on above: Performed By: #### A GLYCO ####[facility] [address] [place] [address] Lab Director: Wil Swanson MD#### SED, PRCAL, MYCM, CDP, BMPX, TROPI, GLYHGB, IOCAL, LACTIC, CRP ####[address] [address] Lab Director: Ramiro Mark MD RBC (Bld) [#/Vol] 3.34 10*6/uL Low 4.21-5.77 [facility] Comment on above: Performed By: #### A GLYCO ####[facility] [address] [place] [address] Lab Director: Wil Swanson MD#### SED, PRCAL, MYCM, CDP, BMPX, TROPI, GLYHGB, IOCAL, LACTIC, CRP ####[facility] [address] [place] [address] Lab Director: Ramiro Mark MD RBC morphology finding Nom (Bld) MICROCYTOSIS PRESENT Normal [facility] Comment on above: Performed By: #### A GLYCO ####[facility] [address] [place] [address] [id number] [facility] Director: Wil Swanson MD#### SED, PRCAL, MYCM, CDP, BMPX, TROPI, GLYHGB, IOCAL, LACTIC, CRP ####[facility] [address] [place], [place] [id number] Lab Director: Ramiro Mark MD WBC (Bld) [#/Vol] 17.1 10*3/uL High 3.5-11.3 [facility] Comment on above: Performed By: #### A GLYCO ####[facility] [address] [place], [place] [id number] [facility] Director: Wil Swanson MD#### SED, PRCAL, MYCM, CDP, BMPX, TROPI, GLYHGB, IOCAL, LACTIC, CRP ####[facility] [address] [place], [place] [id number] Lab Director: Ramiro Mark MD Abs. Basophil 0.33 k/uL High 0.0-0.2 [facility] Comment on above: Performed By: #### B H #### [facility] [address] [place] [address] Dr. [place] [id number] Retail Salesworker: Ramiro Santillan MD Abs.Imm.Granulocyte 0.00 k/uL Normal 0.00-0.30 [facility] Comment on above: Performed By: #### B H #### [address] [place], [facility]83 Retail Salesworker: Ramiro Santillan MD Abs.Neutrophil (Seg) 15.71 k/uL High 1.50-8.10 [facility] Comment on above: Performed By: #### B H #### [address] [place] [address] Retail Salesworker: Ramiro Santillan MD Basophils/100 WBC (Bld) 2 % Normal 0-2 [facility] Comment on above: Performed By: #### B H #### [facility] [address] [place], [facility]83 Retail Salesworker: Ramiro Santillan MD Eosinophils (Bld) [#/Vol] 0.00 10*3/uL Normal 0.00-0.44 [facility] Comment on above: Performed By: #### B H #### [facility] [address] [place], [facility]83 Retail Salesworker: Ramiro Santillan MD Eosinophils/100 WBC (Bld) 0 % Low 1-4 [facility] Comment on above: Performed By: #### B H #### [facility] [address] [place], [facility]83 Retail Salesworker: aRmiro Santillan MD Immature granulocytes/100 WBC (Bld) 0 % Normal 0 [facility] Comment on above: Performed By: #### B H #### [facility] [address] [place], [facility]83 Retail Salesworker: Ramiro Santillan MD Lymphocytes (Bld) [#/Vol] 0.33 10*3/uL Low 1.10-3.70 [facility] Comment on above: Performed By: #### B H #### [address] [place], [facility]83 Retail Salesworker: Ramiro Santillan MD Lymphocytes/100 WBC (Bld) 2 % Low 24-43 [facility] Comment on above: Performed By: #### B H #### [facility] [address] [place], [facility]83 Retail Salesworker: Ramiro Santillan MD Monocytes (Bld) [#/Vol] 0.33 10*3/uL Normal 0.10-1.20 [facility] Comment on above: Performed By: #### B H #### [facility] [address] [place] [address] Retail Salesworker: Ramiro Santillan MD Monocytes/100 WBC (Bld) 2 % Low 3-12 [facility] Comment on above: Performed By: #### B H #### [facility] [address] [place] [address] Dr. [place], [facility]83 Retail Salesworker: Ramiro Santillan MD Morphology Everardo (Bld) [Interp] Normal Normal [facility] Comment on above: Performed By: #### B H #### [address] [place] [facility]83 Retail Salesworker: Ramiro Santillan MD Neutrophil (Seg) 94 % High 36-65 [facility] Comment on above: Performed By: #### B H #### [address] [place] [facility]83 Retail Salesworker: Ramiro Santillan MD Erythrocyte distribution width (RBC) [Ratio] 12.8 % Normal 11.8-14.4 [facility] Comment on above: Performed By: #### B H #### [address] [place] [facility]83 Retail Salesworker: Ramiro Santillan MD Hematocrit (Bld) [Volume fraction] 34.5 % Low 40.7-50.3 [facility] Comment on above: Performed By: #### B H #### [address] [place] [facility]83 Retail Salesworker: Ramiro Santillan MD Hemoglobin (Bld) [Mass/Vol] 12.1 g/dL Low 13.0-17.0 [facility] Comment on above: Performed By: #### B H #### [address] [place] [facility]83 Retail Salesworker: Ramiro Santillan MD MCH (RBC) [Entitic mass] 28.8 pg Normal 25.2-33.5 [facility] Comment on above: Performed By: #### B H #### [address] [place] [facility]83 Retail Salesworker: Ramiro Santillan MD MCHC (RBC) [Mass/Vol] 35.1 g/dL High 28.4-34.[address] [facility] Comment on above: Performed By: #### B H #### [address] [place] [phone] Retail Salesworker: Ramiro Santillan MD MCV (RBC) [Entitic vol] 82.1 fL Low 82.6-102.9 [facility] Comment on above: Performed By: #### B H #### [address] [place], [place] [phone] Retail Salesworker: Ramiro Santillan MD NRBC Automated 0.0 per 100 WBC Normal 0.0 [facility] Comment on above: Performed By: #### B H #### [address] [place], [facility]83 Retail Salesworker: Ramiro Santillan MD Platelet mean volume (Bld) [Entitic vol] 10.9 fL Normal 8.1-13.5 [facility] Comment on above: Performed By: #### B H #### [address] [place], [place] [phone] Retail Salesworker: Ramiro Santillan MD Platelets (Bld) [#/Vol] 291 10*3/uL Normal 138-453 [facility] Comment on above: Performed By: #### B H #### [facility] [address] [place] [address] Dr. [place], [place] [phone] Retail Salesworker: Ramiro Santillan MD RBC (Bld) [#/Vol] 4.20 10*6/uL Low 4.21-5.77 [facility] Comment on above: Performed By: #### B H #### [address] [place], [place] [phone] Retail Salesworker: Ramiro Santillan MD WBC (Bld) [#/Vol] 16.7 10*3/uL High 3.5-11.3 [facility] Comment on above: Performed By: #### B H #### [facility] [address] [place] [address] Retail Salesworker: MD Charan Powell 09-28-2024 CK [Catalytic activity/Vol] 420 U/L High 39 - 308 U/L [facility] CT CHEST ABDOMEN PELVIS W CO [...] Lito Marie MD 09/28/24 Final result Normal [facility] CT Chest and Abdomen and Pel vis [...] adjacent to the pancreas concerning for pancreatitis. [facility] Radiology Study observation (narrative) [facility] CT HEAD WO CONTRASTon 2023 CT [...] Lito Marie MD 09/28/24 Final result Normal [facility] CT Head WO contraston 2023 No acute [...] of the visualized skull or soft tissues. [facility] RIS Lito Pisano MD - 09/28/2024 EXAMINATION: [...] intracranial abnormality. Remote right parietal lobe infarct. [facility] Radiology Study observation (narrative) [facility] CT Head WO contrastOrdered B y: Lito Marie on 09-28-[address] [facility] Work Phone: CTA HEAD NECK W [...] Lito Marie MD 09/28/24 Final result Normal [facility] CTA Head vessels and Neck ve ssels [...] fluid collection. The winkler-white differentiation is maintained. [facility] RIS Lito Pisano MD - 09/28/2024 EXAMINATION: [...] SYSTEM PROVIDED HISTORY: AMS TECHNOLOGIST PROVIDED HISTORY: [facility] Decision Support Exception - unselect if not [...] in the left lung concerning for pneumonia. [facility] Radiology Study observation (narrative) [facility] Calcium, Ionicon 09-28-2024 Calcium [Moles/Vol] 1.20 mmol/L Normal 1.13-1.33 [facility] Comment on above: Performed By: #### A GLYCO ####[facility] [address] [place] [address] Lab Director: Wil Swanson MD#### SED, PRCAL, MYCM, CDP, BMPX, TROPI, GLYHGB, IOCAL, LACTIC, CRP ####[facility] [address] [place], [place] [id number] Lab Director: Ramiro Mark MD Calcium, Ionizedon Calcium.ionized (Bld) [Moles/Vol] 1.20 mmol/L 1.13 - 1.33 mmol/L [facility] Comp Metabolic Profon 2023 Albumin [Mass/Vol] 4.0 g/dL Normal 3.5-5.2 [facility] Comment on above: Performed By: #### B H #### [facility] [address] [place] [address] Retail Salesworker: Ramiro Santillan MD Albumin/Glob Ratio 1.2 Normal 1.0-2.5 [facility] Comment on above: Performed By: #### B H #### [facility] [address] [place] [address] Retail Salesworker: Ramiro Santillan MD Alkaline Phos 192 U/L High 40-129 [facility] Comment on above: Performed By: #### B H #### [facility] [address] [place], [place] [phone] Retail Salesworker: Ramiro Santillan MD ALT [Catalytic activity/Vol] 24 U/L Normal 10-50 [facility] Comment on above: Performed By: #### B H #### [facility] [address] [place] [address] Retail Salesworker: Ramiro Santillan MD Anion gap [Moles/Vol] 18 mmol/L High 9-[address] [facility] Comment on above: Performed By: #### B H #### [facility] [address] [place], [place] [phone] Retail Salesworker: Ramiro Santillan MD AST [Catalytic activity/Vol] 29 U/L Normal 10-50 [facility] Comment on above: Performed By: #### B H #### [facility] [address] [place] [address] Retail Salesworker: Ramiro Santillan MD Bilirubin [Mass/Vol] 0.4 mg/dL Normal 0.00-1.20 [facility] Comment on above: Performed By: #### B H #### [facility] [address] [place] [address] Retail Salesworker: Ramiro Santillan MD BUN/CRE Ratio 22 High 9-20 [facility] Comment on above: Performed By: #### B H #### [facility] [address] [place], [place] [phone] Retail Salesworker: Ramiro Santillan MD Calcium [Mass/Vol] 9.4 mg/dL Normal 8.6-10.4 [facility] Comment on above: Performed By: #### B H #### [facility] [address] [place] [phone] Retail Salesworker: Rmairo Santillan MD Chloride [Moles/Vol] 87 mmol/L Low 98-107 [facility] Comment on above: Performed By: #### B H #### [facility] [address] [place] [address] Retail Salesworker: Ramiro Santillan MD CO2 [Moles/Vol] 23 mmol/L Normal 20-31 [facility] Comment on above: Performed By: #### B H #### [facility] [address] [place] [address] Retail Salesworker: Ramiro Santillan MD Creatinine [Mass/Vol] 2.0 mg/dL High 0.70-1.[address] [facility] Comment on above: Performed By: #### B H #### [facility] [address] [place] [address] Retail Salesworker: Ramiro Santillan MD GFR/1.73 sq M.predicted among non-blacks MDRD (S/P/Bld) [Vol rate/Area] 39 mL/min/{1.73_m2} Low >60 [facility] Comment on above: Result Comment: These results [...] secretion. Performed By: #### B H #### [facility] [address] [place] [address] Retail Salesworker: Ramiro Santillan MD Glucose [Mass/Vol] 820 mg/dL Critically high 74-99 [facility] Comment on above: Performed By: #### B H #### [facility] [address] [place] [address] Retail Salesworker: Ramiro Santillan MD Potassium [Moles/Vol] 5.0 mmol/L Normal 3.7-5.[address] [facility] Comment on above: Performed By: #### B H #### [facility] [address] [place] [address] Retail Salesworker: Ramiro Santillan MD Protein [Mass/Vol] 7.3 g/dL Normal 6.6-8.7 [facility] Comment on above: Performed By: #### B H #### [facility] [address] [place], [place] [phone] Retail Salesworker: Ramiro Santillan MD Sodium [Moles/Vol] 128 mmol/L Low 136-145 [facility] Comment on above: Performed By: #### B H #### [facility] [address] [place] [address] Retail Salesworker: Ramiro Santillan MD Urea nitrogen [Mass/Vol] 43 mg/dL High 6-20 [facility] Comment on above: Performed By: #### B H #### [facility] [address] [place] [address] Retail Salesworker: Ramiro Santillan MD [facility] Metabolic [facility] 09-28-2024 Albumin [Mass/Vol] 4.0 g/dL 3.5 - 5.2 g/dL [facility] Albumin/Globulin [Mass ratio] 1.2 {ratio} 1.0 - 2.[address] [facility] ALP [Catalytic activity/Vol] 192 U/L High 40 - 129 U/L [facility] ALT [Catalytic activity/Vol] 24 U/L 10 - 50 U/L [facility] Anion gap [Moles/Vol] 18 mmol/L High 9 - 16 mmol/L [facility] AST [Catalytic activity/Vol] 29 U/L 10 - 50 U/L [facility] Bilirubin [Mass/Vol] 0.4 mg/dL 0.00 - 1.20 mg/dL [facility] Calcium [Mass/Vol] 9.4 mg/dL 8.6 - 10. 4 mg/dL [facility] Chloride [Moles/Vol] 87 mmol/L Low 98 - 10 7 mmol/L [facility] CO2 [Moles/Vol] 23 mmol/L 20 - 31 mmol/L [facility] Creatinine [Mass/Vol] 2.0 mg/dL High 0.70 - 1.20 mg/dL [facility] Est, Glom Filt Rate 39 Low - PINF [facility] Comment on above: These results [...] Critically high 74 - 9 9 mg/dL [facility] Interpretation and review of laboratory results Abnormal [facility] Potassium [Moles/Vol] 5.0 mmol/L 3.7 - 5.3 mmol/L [facility] Protein [Mass/Vol] 7.3 g/dL 6.6 - 8.7 g/dL [facility] Sodium [Moles/Vol] 128 mmol/L Low 136 - 145 mmol/L [facility] Urea nitrogen [Mass/Vol] 43 mg/dL High 6 - 20 mg/dL [facility] Urea nitrogen/Creatinine [Mass ratio] 22 mg/mg High 9 - 20 [facility] Creatine Kinaseon 09-28-2024 CK [Catalytic activity/Vol] 420 U/L High 39-308 [facility] Comment on above: Performed By: #### B MP #### [facility] [address] [place] [address] Retail Salesworker: Ramiro Santillan MD Drug Scr, Abuse, Uron 2023 Amphetamine(s),Ur Negative Normal NEG [facility] Comment on above: Result Comment: Cuto ff: 1000 ng/mL Performed By: #### B MP #### [facility] [address] [place] [address] Retail Salesworker: Ramiro Santillan MD Barbiturate(s),Ur Negative Normal NEG [facility] Comment on above: Result Comment: Cuto ff: 200 ng/ml Performed By: #### B MP #### [facility] [address] [place], [place] [phone] Retail Salesworker: Ramiro Santillan MD Benzodiazepine(s) Negative Normal NEG [facility] Comment on above: Result Comment: Cuto ff: 200 ng/ml Performed By: #### B MP #### [facility] [address] [place] [address] Dr. [place], [place] [phone] Retail Salesworker: Ramiro Santillan MD Buprenorphrine, Ur Negative Normal NEG [facility] Comment on above: Result Comment: Cuto ff: 5 ng/ml Performed By: #### B MP #### [facility] [address] [place] [address] Dr. [place], [place] [phone] Retail Salesworker: Ramiro Santillan MD Cannabinoid(s),Ur Negative Normal NEG [facility] Comment on above: Result Comment: Cuto ff: 50 ng/ml Performed By: #### B MP #### [facility] [address] [place] [address] [place] [address] Retail Salesworker: Ramiro Santillan MD Cocaine Metabolite Negative Normal NEG [facility] Comment on above: Result Comment: Cuto ff: 300 ng/ml Performed By: #### B MP #### [facility] [address] [place], [place] [phone] Retail Salesworker: Ramiro Santillan MD Fentanyl, Urine Negative Normal NEG [facility] Comment on above: Result Comment: Cuto ff: 5 ng/ml Performed By: #### B MP #### [facility] [address] [place], [place] [phone] Retail Salesworker: Ramiro Santillan MD Interpretive Info This method is a screening test to detect only these drug classes as part of a Normal [facility] Comment on above: Result Comment: medi juvenal workup. Confirmatory testing by another method should be ordered if clinically indicated. Performed By: #### B MP #### [address] [place], [place] [phone] Retail Salesworker: Ramiro Santillan MD Methadone Ql (U) Negative Normal NEG [facility] Comment on above: Result Comment: Cuto ff: 300 ng/ml Performed By: #### B MP #### [address] [place], [place] [phone] Retail Salesworker: Ramiro Santillan MD Opiate(s), Ur Negative Normal NEG [facility] Comment on above: Result Comment: Cuto ff: 300 ng/ml Note: The Opiate screen is not intended to detect Oxycodone. Performed By: #### B MP #### [address] [place], [place] [phone] Retail Salesworker: Ramiro Santillan MD Oxycodone, Urine Negative Normal [facility] Comment on above: Result Comment: Cuto ff: 100 ng/ml Performed By: #### B MP #### [address] [place], [place] [phone] Retail Salesworker: Ramiro Santillan MD Phencyclidine, Ur Negative Normal NEG [facility] Comment on above: Result Comment: Cuto ff: 25 ng/ml Performed By: #### B MP #### [address] [place], [place] [phone] Retail Salesworker: Ramiro Santillan MD Glucose, Whole Bloodon 09-28 Glucose [Mass/Vol] 387 mg/dL High 74 - 100 mg/dL [facility] Interpretation and review of laboratory results Abnormal [facility] Glucose [Mass/Vol] 387 mg/dL High 74-100 [facility] Glucose [Mass/Vol] 469 mg/dL High 74 - 100 mg/dL [facility] Interpretation and review of laboratory results Abnormal [facility] Glucose [Mass/Vol] 469 mg/dL High 74-100 [facility] Glucose [Mass/Vol] 543 mg/dL Critically high 74 - 1 00 mg/dL [facility] Interpretation and review of laboratory results Abnormal [facility] Glucose [Mass/Vol] 543 mg/dL Critically high 74-100 [facility] Glucose,Whole Bloodon 2023 Glucose [Mass/Vol] 137 mg/dL High 75-110 [facility] Glucose [Mass/Vol] 472 mg/dL Critically high 75-110 [facility] Comment on above: Result Comment: Martin carvajal Noted Glucose [Mass/Vol] 115 mg/dL High 75-110 [facility] Glucose [Mass/Vol] 126 mg/dL High 75-110 [facility] Glucose [Mass/Vol] 178 mg/dL High 75-110 [facility] Glucose [Mass/Vol] 255 mg/dL High 75-110 [facility] Glucose [Mass/Vol] 289 mg/dL High 75-110 [facility] Glucose [Mass/Vol] 305 mg/dL High 75-110 [facility] Hemoglobin A1Con 09-28-[address] Gluc Sent to reference laboratory. Separate report to follow. Normal [facility] Comment on above: Result Comment: The ADA and AACC recommend providing the estimated average glucose result to permit better patient understanding of their HBA1c result. Performed By: #### A GLYCO ####[facility] [address] [place] [address] Lab Director: Wil Swanson MD#### SED, PRCAL, MYCM, CDP, BMPX, TROPI, GLYHGB, IOCAL, LACTIC, CRP ####[facility] [address] [place] [address] Lab Director: Ramiro Mark MD Hemoglobin A1C Sent to reference laboratory. Separate report to follow. Normal 4.0-6.0 [facility] Comment on above: Performed By: #### A GLYCO ####[facility] [address] [place] [address] Lab Director: Wil Swanson MD#### SED, PRCAL, MYCM, CDP, BMPX, TROPI, GLYHGB, IOCAL, LACTIC, CRP ####[facility] [address] [place] [address] [id number] Lab Director: Ramiro Mark MD Hemoglobin A1con 09-28-2024 Average glucose Estimated from glycated hemoglobin (Bld) [Mass/Vol] Sent to reference laboratory. Separate report to follow. mg/dL [facility] HbA1c (Bld) [Mass fraction] Sent to reference laboratory. Separate report to follow. 4.0 - 6.0 % [facility] Heparin Anti-Xaon 09-28-2024 Heparin Anti-Xa <0.10 Normal [facility] Comment on above: Result Comment: This test has not been validated or calibrated for therapies other than unfractionated heparin.Interpretation of the result in relation to other therapies must be done with caution and within clinical context. Performed By: #### H EPXA, CBC, PT, PTT ####[address] [id number] Lab Director: Ramiro Mark MD LEGIONELLA ANTIGEN, URINEon 09-28-2024 L. pneumophila 1 Ag IA.rapid Ql (U) Negative NEGATIVE [facility] Lactic Acidon 09-28-2024 Lactic Acid, Whole Blood 0.9 mmol/L 0.7 - 2.1 mmol/L [facility] Lactic Acid,Whole Bl 0.9 mmol/L Normal 0.7-2.1 [facility] Comment on above: Performed By: #### L ACTIC, BMP, MG, CHELO ####[facility] [address] [place], [place] [id number] Lab Director: Ramiro Mark MD Lactic Acid, Whole Blood 2.0 mmol/L 0.7 - 2.1 mmol/L [facility] Lactic Acid,Whole Bl 2.0 mmol/L Normal 0.7-2.1 [facility] Comment on above: Performed By: #### L ACTIC, BMP, TROPI, MG, CHELO ####[facility] [address] [place], [place] [id number] Lab Director: Ramiro Mark MD Interpretation and review of laboratory results Abnormal [facility] Lactic Acid, Whole Blood 3.2 mmol/L High 0.7 - 2.1 mmol/L [facility] Lactic Acid,Whole Bl 3.2 mmol/L High 0.7-2.1 [facility] Comment on above: Performed By: #### A GLYCO ####[facility] [address] [place] [address] Lab Director: Wil Swanson MD#### SED, PRCAL, MYCM, CDP, BMPX, TROPI, GLYHGB, IOCAL, LACTIC, CRP ####[facility] [address] [place] [address] Lab Director: Ramiro Mark MD Interpretation and review of laboratory results Abnormal [facility] Lactate (BldV) [Moles/Vol] 3.4 mmol/L High 0.5 - 2.2 mmol/L [facility] Lactate [Moles/Vol] 3.4 mmol/L High 0.5-2.2 [facility] Comment on above: Performed By: #### L ACTIC #### [facility] [address] [place] [address] [place] [address] Retail Salesworker: Ramiro Santillan MD Interpretation and review of laboratory results Abnormal [facility] Lactate (BldV) [Moles/Vol] 2.3 mmol/L High 0.5 - 2.2 mmol/L [facility] Lactate [Moles/Vol] 2.3 mmol/L High 0.5-2.2 [facility] Comment on above: Performed By: #### L ACTIC #### [facility] [address] [place] [address] Retail Salesworker: Ramiro Santillan MD Legionella Ag, Uron 09-28-20 24 Legionella Ag, Ur Negative Normal NEG [facility] Comment on above: Result Comment: L. p neumophila serogroup 1 antigen not detected.A negative result does not exclude infection with Leginella pnemophila serogroup 1 nor does it rule out other microbial-caused respiratory infections of disease caused by other serogroups of Legionella pneumophila. Performed By: #### L EGU ####[facility] [address] [place] [address] Lab Director: Ramiro Mark MD Lipaseon 09-28-2024 Lipase [Catalytic activity/Vol] 83 U/L High 13 - 60 U/L [facility] Lipase [Catalytic activity/Vol] 83 U/L High 13-60 [facility] Comment on above: Performed By: #### B H #### [facility] [address] [place] [address] Retail Salesworker: Ramiro Santillan MD MRSA, DNA, Nasalon 4 Specimen Description .NASAL SWAB Normal [facility] Comment on above: Performed By: #### M RSANO ####[facility] [address] [place] [address] Lab Director: Ramiro Mark MD Magnesiumon 09-28-2024 Magnesium [Mass/Vol] 1.7 mg/dL 1.6 - 2 .6 mg/dL [facility] Magnesium [Mass/Vol] 1.7 mg/dL Normal 1.6-2.6 [facility] Comment on above: Performed By: #### L ACTIC, BMP, MG, CHELO ####[facility] [address] [place] [address] Lab Director: Ramiro Mark MD Magnesium [Mass/Vol] 1.8 mg/dL 1.6 - 2 .6 mg/dL [facility] Magnesium [Mass/Vol] 1.8 mg/dL Normal 1.6-2.6 [facility] Comment on above: Performed By: #### L ACTIC, BMP, TROPI, MG, CHELO ####[facility] [address] [place], [place] [id number] [facility] Director: Ramiro Mark MD Magnesium [Mass/Vol] 1.3 mg/dL Low 1.6-2.6 [facility] Comment on above: Performed By: #### B MP #### [facility] [address] [place] [address] Retail Salesworker: Ramiro Santillan MD Magnesium [Mass/Vol] 2.1 mg/dL 1.6 - 2 .6 mg/dL [facility] Magnesium [Mass/Vol] 2.1 mg/dL Normal 1.6-2.6 [facility] Comment on above: Performed By: #### B MP #### [facility] [address] [place] [address] Retail Salesworker: Ramiro Santillan MD Microscopic Urinalysison Epithelial cells LM.HPF (Urine sed) [#/Area] 0 TO [address] [facility] RBC LM.HPF (Urine sed) [#/Area] 2 TO [address] [facility] WBC LM.HPF (Urine sed) [#/Area] 0 TO 2 [facility] No Panel Informationon 09-[address] [facility] Interpretation and review of laboratory results Abnormal [facility] Interpretation and review of laboratory results Abnormal [facility] Interpretation and review of laboratory results Abnormal [facility] Interpretation and review of laboratory results Abnormal [facility] Interpretation and review of laboratory results Abnormal [facility] POC Glucose Fingerstickon Glucose [Mass/Vol] 137 mg/dL High 75 - 110 mg/dL [facility] Interpretation and review of laboratory results Abnormal [facility] Glucose [Mass/Vol] 472 mg/dL Critically high 75 - 1 10 mg/dL [facility] Interpretation and review of laboratory results Abnormal [facility] Glucose [Mass/Vol] 115 mg/dL High 75 - 110 mg/dL [facility] Interpretation and review of laboratory results Abnormal [facility] Glucose [Mass/Vol] 126 mg/dL High 75 - 110 mg/dL [facility] Interpretation and review of laboratory results Abnormal [facility] Glucose [Mass/Vol] 178 mg/dL High 75 - 110 mg/dL [facility] Interpretation and review of laboratory results Abnormal [facility] Glucose [Mass/Vol] 255 mg/dL High 75 - 110 mg/dL [facility] Interpretation and review of laboratory results Abnormal [facility] Glucose [Mass/Vol] 289 mg/dL High 75 - 110 mg/dL [facility] Interpretation and review of laboratory results Abnormal [facility] Glucose [Mass/Vol] 305 mg/dL High 75 - 110 mg/dL [facility] Interpretation and review of laboratory results Abnormal [facility] PTon 09-28-2024 INR Coag (PPP) [Relative time] 1.1 {INR} Normal [facility] Comment on above: Result Comment: Ther apeutic Range: Moderate Anticoagulant Intensity: INR = 2.0-3.0 High Anticoagulant Intensity: INR = 2.5-3.5 Performed By: #### H EPXA, CBC, PT, PTT ####[facility] [address] [place] [address] lab Director: Ramiro Mark MD PT Coag (PPP) [Time] 14.3 s Normal 11.7-14.9 [facility] Comment on above: Performed By: #### H EPXA, CBC, PT, PTT ####[facility] [address] [place] [address] [facility] Director: Ramiro Mark MD INR Coag (PPP) [Relative time] 0.9 {INR} Normal [facility] Comment on above: Therapeutic Range: Moderate Anticoagulant Intensity: INR = 2.0-3.0 High Anticoagulant Intensity: INR = 2.5-3.5 Result Comment: Therapeutic Range: Moderate Anticoagulant Intensity: INR = 2.0-3.0 High Anticoagulant Intensity: INR = 2.5-3.5 Performed By: #### T ROPI, LIP, CDP, PT, BNP, CP #### [address] [place] [address] Retail Salesworker: Ramiro Santillan MD PT Coag (PPP) [Time] 12.2 s Normal 11.7-14.[address] [facility] Comment on above: Performed By: #### T ROPI, LIP, CDP, PT, BNP, CP #### [address] [place] [address] Retail Salesworker: Ramiro Santillan MD Phosphoruson 09-28-2024 Phosphate [Mass/Vol] 3.2 mg/dL 2.5 - 4 .5 mg/dL [facility] Phosphate [Mass/Vol] 2.8 mg/dL 2.5 - 4 .5 mg/dL [facility] Phosphate [Mass/Vol] 4.9 mg/dL High 2.5 - 4 .5 mg/dL [facility] Phosphorus, Inorg.on 024 Phosphorus, Inorg. 3.2 mg/dL Normal 2.5-4.5 [facility] Comment on above: Performed By: #### L ACTIC, BMP, MG, CHELO ####[facility] [address] [place] [address] Lab Director: Ramiro Mark MD Phosphorus, Inorg. 2.8 mg/dL Normal 2.5-4.5 [facility] Comment on above: Performed By: #### L ACTIC, BMP, TROPI, MG, CHELO ####[facility] [address] [place], [place] [id number] Lab Director: Ramiro Mark MD Phosphorus, Inorg. 3.5 mg/dL Normal 2.5-4.5 [facility] Comment on above: Performed By: #### B MP #### [facility] [address] [place] [address] Retail Salesworker: Ramiro Santillan MD Phosphorus, Inorg. 4.9 mg/dL High 2.5-4.5 [facility] Comment on above: Performed By: #### L ACTIC #### [facility] [address] [place] [address] Retail Salesworker: Ramiro Santillan MD Portable XR Chest AP [...] tube with the tip in the midtrachea. [facility] Radiology Study observation (narrative) [facility] Procalcitoninon 09-28-2024 Procalcitonin [Mass/Vol] 0.19 ng/mL High 0.00 - 0.09 ng/mL [facility] Procalcitonin 0.19 ng/mL High 0.00-0.09 [facility] Comment on above: Result Comment: Susp [...] entered into the Change in Procalcitonin Calculator (www.elhjne-hsm-skpcjxxytk.[facility]) to determine the patient's Mortality Risk PrognosisIn healthy neonates, plasma Procalcitonin (PCT) concentrations increase gradually after , reaching peak values at about 24 hours of age then decrease to normal values below 0.5 ng/mL by 48-72 hours of age. Performed By: #### A GLYCO ####[facility] [address] [place] [address] Lab Director: Wil Swanson MD#### SED, PRCAL, MYCM, CDP, BMPX, TROPI, GLYHGB, IOCAL, LACTIC, CRP ####[facility] [address] [place] [address] Lab Director: Ramiro Mark MD Protime-INRon 09-28-2024 INR Coag (PPP) [Relative time] 1.1 {INR} [facility] PT Coag (PPP) [Time] 14.3 s Bon [facility] Resp Viral Panelon 4 Adenovirus Not detected Normal [facility] Comment on above: Performed By: #### R CABLE PULLER ####[facility] [address] [place], [place] [phone] Director: MD Lakesha Moreno.parapertussis Not detected Normal [facility] Comment on above: Performed By: #### R CABLE PULLER ####[facility] [address] [place] [address] Lab Director: Ramiro Mark MD Bordetella pertussis Not detected Normal [facility] Comment on above: Performed By: #### R CABLE PULLER ####[address] [phone] Director: Ramiro Mark MD Chlamyd.pneumoniae Not detected Normal [facility] Comment on above: Performed By: #### R CABLE PULLER ####[address] [address] Lab Director: Ramiro Mark MD Coronavirus 229E Not detected Normal [facility] Comment on above: Performed By: #### R CABLE PULLER ####[facility] [address] [place] [address] Lab Director: Ramiro Mark MD Coronavirus HKU1 Not detected Normal [facility] Comment on above: Performed By: #### R CABLE PULLER ####[facility] [address] [place], [place] [phone] Director: Ramiro Mark MD Coronavirus NL63 Not detected Normal [facility] Comment on above: Performed By: #### R CABLE PULLER ####[facility] [address] [place] [address] Lab Director: Ramiro Mark MD Coronavirus OC43 Not detected Normal [facility] Comment on above: Performed By: #### R CABLE PULLER ####[id number] [place], [place] [phone] Director: Ramiro Mark MD Human Metapneumo Not detected Normal [facility] Comment on above: Performed By: #### R CABLE PULLER ####[address] [phone] Director: Ramiro Mark MD Influenza A Not detected Normal [facility] Comment on above: Performed By: #### R CABLE PULLER ####[address] [phone] Director: Ramiro Mark MD Influenza B Not detected [facility] Comment on above: Performed By: #### R CABLE PULLER ####[address] [phone] Director: Ramiro Mark MD Mycoplas.pneumoniae Not detected Normal [facility] Comment on above: Result Comment: Perf ormed by multiplexed nucleic acid assay. Performed By: #### R CABLE PULLER ####[address] [phone] Director: Ramiro Mark MD Parainfluenza 1 Not detected Normal [facility] Comment on above: Performed By: #### R CABLE PULLER ####[address] [phone] Director: Ramiro Mark MD Parainfluenza 2 Not detected [facility] Comment on above: Performed By: #### R CABLE PULLER ####[address] [phone] Director: Ramiro Mark MD Parainfluenza 3 Not detected Normal [facility] Comment on above: Performed By: #### R CABLE PULLER ####[address] [address] Lab Director: Ramiro Mark MD Parainfluenza 4 Not detected Normal [facility] Comment on above: Performed By: #### R CABLE PULLER ####[address] [address] Lab Director: Ramiro Mark MD Resp Syncytial Virus Not detected Normal [facility] Comment on above: Performed By: #### R CABLE PULLER ####[address] [address] Lab Director: Ramiro Mark MD Rhino/Enterovirus Not detected Normal [facility] Comment on above: Performed By: #### R CABLE PULLER ####[address] [address] Lab Director: Ramiro Mark MD SARS-CoV-2 (COVID-19) RNA MEETA+probe Ql (Unsp spec) Not detected Normal [facility] Comment on above: Performed By: #### R CABLE PULLER ####[address] [address] Lab Director: Ramiro Mark MD Source: .NASOPHARYNGEAL SWAB Normal [facility] Comment on above: Performed By: #### R CABLE PULLER ####[address] [address] Lab Director: Ramiro Mark MD Respiratory Panel, Molecular , with COVID-19 (Restricted: peds pts or suitable admitted adults)on 09-28-2024 Adenovirus DNA MEETA+non-probe Ql (Nph) Not detected Not Detected [facility] B. parapertussis [id number] DNA MEETA+non-probe Ql (Nph) Not detected Not Detected [facility] B. pertussis DNA MEETA+probe Ql (Unsp spec) Not detected Not Detected [facility] C. pneumoniae DNA MEETA+non-probe Ql (Nph) Not detected Not Detected [facility] FLUAV RNA MEETA+non-probe Ql (Nph) Not detected Not Detected [facility] FLUBV RNA MEETA+non-probe Ql (Nph) Not detected Not Detected [facility] HCoV 229E RNA MEETA+non-probe Ql (Nph) Not detected Not Detected [facility] HCoV HKU1 RNA MEETA+non-probe Ql (Nph) Not detected Not Detected [facility] HCoV NL63 RNA MEETA+non-probe Ql (Nph) Not detected Not Detected [facility] HCoV OC43 RNA MEETA+non-probe Ql (Nph) Not detected Not Detected [facility] hMPV RNA MEETA+non-probe Ql (Nph) Not detected Not Detected [facility] M. pneumoniae DNA MEETA+non-probe Ql (Nph) Not detected Not Detected [facility] Parainfluenza virus 1 RNA MEETA+non-probe Ql (Nph) Not detected Not Detected [facility] Parainfluenza virus 2 RNA MEETA+non-probe Ql (Nph) Not detected Not Detected [facility] Parainfluenza virus 3 RNA MEETA+non-probe Ql (Nph) Not detected Not Detected [facility] Parainfluenza virus 4 RNA MEETA+non-probe Ql (Nph) Not detected Not Detected [facility] Rhinovirus+Enterovirus RNA MEETA+non-probe Ql (Nph) Not detected Not Detected [facility] RSV RNA MEETA+non-probe Ql (Nph) Not detected Not Detected [facility] SARS-CoV-2 (COVID-19) RNA MEETA+non-probe Ql (Nph) Not detected Not Detected [facility] Specimen Description .NASOPHARYNGEAL SWAB [facility] Sedimentation Rateon 09-28-2 024 ESR Photometric method (Bld) [Velocity] [address] [facility] Interpretation and review of laboratory results Abnormal [facility] Sedimentation Rate 24 mm/Hr High 0-20 [facility] Comment on above: Performed By: #### A GLYCO ####[facility] [address] [place] [address] Lab Director: Wil Swanson MD#### SED, PRCAL, MYCM, CDP, BMPX, TROPI, GLYHGB, IOCAL, LACTIC, CRP ####[facility] [address] [place] [address] Lab Director: Ramiro Mark MD Strep Pneumoniae Antigenon 1 11-29-2023 S. pneumoniae Ag Ql (Unsp spec) Negative [facility] Specimen source Nom (Unsp spec) .URINE [facility] Strep pneum Ag,CSF/Uron - Strep pneum Ag Negative Normal [facility] Comment on above: Result Comment: Stre p pneumoniae antigen not detected Performed By: #### S PNAG ####[address] [phone] lab Director: Ramiro Mark MD Strep pneu Ag Source .URINE Normal [facility] Comment on above: Performed By: #### S PNAG ####[address] [phone] lab Director: Ramiro Mark MD TYPE AND SCREENon 09-28-2024 ABO and Rh group Nom (Bld) Blood group O Rh(D) positive [facility] Arm Band Number [id number] [facility] Blood Bank Sample Expiration 10/01/2024,[address] [facility] Blood group antibodies identified Nom Negative [facility] Troponinon 09-28-2024 Troponin I.cardiac High sensitivity method [Mass/Vol] 93 ng/L Critically high 0 - 22 ng/L [facility] Troponin, High Sens 93 ng/L Critically high 0-22 [facility] Comment on above: Result Comment: High Sensitivity Troponin values cannot be compared with other Troponin methodologies.Previous Alert Value Reported Performed By: #### L ACTIC, BMP, TROPI, MG, CHELO ####[facility] [address] [place], [place] [phone] Lab Director: Ramiro Mark MD Interpretation and review of laboratory results Abnormal [facility] Troponin I.cardiac High sensitivity method [Mass/Vol] 98 ng/L Critically high 0 - 22 ng/L [facility] Troponin, High Sens 98 ng/L Critically high 0-22 [facility] Comment on above: Result Comment: High Sensitivity Troponin values cannot be compared with other Troponin methodologies.Previous Alert Value Reported Performed By: #### T ROPI ####[facility] [address] [place], [place] [phone] lab Director: Ramiro Mark MD Troponin I.cardiac High sensitivity method [Mass/Vol] 97 ng/L Critically high 0 - 22 ng/L [facility] Troponin, High Sens 97 ng/L Critically high 0-22 [facility] Comment on above: Result Comment: High Sensitivity Troponin values cannot be compared with other Troponin methodologies. Performed By: #### A GLYCO ####[facility] [address] [place] [address] lab Director: Wil Swanson MD#### SED, PRCAL, MYCM, CDP, BMPX, TROPI, GLYHGB, IOCAL, LACTIC, CRP ####[facility] [address] [place], [place] [id number] Lab Director: Ramiro Mark MD Interpretation and review of laboratory results Abnormal [facility] Troponin I.cardiac High sensitivity method [Mass/Vol] 65 ng/L Critically high 0 - 22 ng/L [facility] Comment on above: Specimen hemolysis h as exceeded the interference as defined by Jaime. Value may be falsely decreased. Suggest recollection if clinically indicated. High Sensitivity Troponin values cannot be compared with other Troponin methodologies. [facility] Troponin, High Sens 65 ng/L Critically high 0-22 [facility] Comment on above: Result Comment: Spec imen hemolysis has exceeded the interference as defined by Jaime. Value may be falsely decreased. Suggest recollection if clinically indicated. High Sensitivity Troponin values cannot be compared with other Troponin methodologies. Performed By: #### B MP #### [address] [place] [address] Retail Salesworker: Ramiro Santillan MD Interpretation and review of laboratory results Abnormal [facility] Troponin I.cardiac High sensitivity method [Mass/Vol] 53 ng/L Critically high 0 - 22 ng/L [facility] Comment on above: High Sensitivity Tro ponin values cannot be compared with other Troponin methodologies. [facility] Troponin, High Sens 53 ng/L Critically high 0-22 [facility] Comment on above: Result Comment: High Sensitivity Troponin values cannot be compared with other Troponin methodologies. Performed By: #### B MP #### [address] [place], [place] [phone] Retail Salesworker: Ramiro Santillan MD Troponin I.cardiac High sensitivity method [Mass/Vol] 64 ng/L Critically high 0 - 22 ng/L [facility] Comment on above: High Sensitivity Tro ponin values cannot be compared with other Troponin methodologies. Troponin, High Sens 64 ng/L Critically high 0-22 [facility] Comment on above: Result Comment: High Sensitivity Troponin values cannot be compared with other Troponin methodologies. Performed By: #### B H #### [address] [place] [address] Retail Salesworker: Ramiro Santillan MD Type + Screenon 09-28-2024 Type + Screen Sample Expiration 10/01/2024,9920 Arm Band Number [id number] ABO/Rh(D) O POSITIVE Antibody Screen NEGATIVE Normal [facility] Comment on above: Performed By: #### T YS #### [facility] [address] [place] [address] [place] [address] Retail Salesworker: Ramiro Santillan MD UA w/Reflex Cultureon 2023 Bilirubin, SemiQt,Ur Negative Normal NEG [facility] Comment on above: Performed By: #### U MICAO, UAX #### [facility] [address] [place], [place] [phone] Retail Salesworker: Ramiro Santillan MD Blood, Urine 2+ Abnormal NEG [facility] Comment on above: Performed By: #### U MICAO, UAX #### [facility] [address] [place], [place] [phone] Retail Salesworker: Ramiro Santillan MD Clarity (U) Clear Normal CLEAR [facility] Comment on above: Performed By: #### U MICAO, UAX #### [facility] [address] [place], [place] [phone] Retail Salesworker: Ramiro Santillan MD Color (U) Yellow Normal YEL [facility] Comment on above: Performed By: #### U MICAO, UAX #### [facility] [address] [place] [address] [address], [place] [phone] Retail Salesworker: Ramiro Santillan MD Glucose Ql (U) 3+ mg/dL Abnormal NEG [facility] Comment on above: Performed By: #### U MICAO, UAX #### [address] [place], [place] [phone] Retail Salesworker: Ramiro Santillan MD Ketones Ql (U) 1+ mg/dL Abnormal NEG [facility] Comment on above: Performed By: #### U MICAO, UAX #### [facility] [address] [place] [address] Dr[place], [place] [phone] Retail Salesworker: Ramiro Santillan MD Leukocyte esterase Test strip Ql (U) Negative Normal NEG [facility] Comment on above: Performed By: #### U MICAO, UAX #### [address] [place] [address] Retail Salesworker: Ramiro Santillan MD Nitrite,Ur Negative Normal NEG [facility] Comment on above: Performed By: #### U MICAO, UAX #### [facility] [address] [place], [place] [phone] Retail Salesworker: Ramiro Santillan MD PH,Ur 6.5 Normal 5.0-9.0 [facility] Comment on above: Performed By: #### U MICAO, UAX #### [facility] [address] [place], [place] [phone] Retail Salesworker: Ramiro Santillan MD Protein Ql (U) 4+ mg/dL Abnormal NEG [facility] Comment on above: Performed By: #### U MICAO, UAX #### [facility] [facility] [address] [place], [place] [id number] Retail Salesworker: Ramiro Santillan MD Spec. [place],Ur 1.015 Normal 1.010-1.020 [facility] Comment on above: Performed By: #### U MICAO, UAX #### [facility] [address] [place] [address] Dr. [place], [place] [phone] Retail Salesworker: Ramiro Santillan MD Urobilinogen,Ur Normal Normal 0.0-1.0 [facility] Comment on above: Performed By: #### U MICAO, UAX #### [address] [place] [address] Retail Salesworker: Ramiro Santillan MD Kidneyon 09-28-2024 Radiology Study observation (narrative) [facility] Urinalysis with Reflex to Cu ltureon 09-28-2024 Bilirubin Ql (U) Negative NEGATIVE [facility] Clarity (U) Clear Clear [facility] Color (U) Yellow Yellow [facility] Glucose Test strip (U) [Mass/Vol] 3+ Abnormal NEGATIVE mg/dL [facility] Hemoglobin Auto test strip Ql (U) 2+ Abnormal NEGATIVE [facility] Interpretation and review of laboratory results Abnormal [facility] Ketones (U) [Mass/Vol] 1+ Abnormal NEGAT RAJAN mg/dL [facility] Leukocyte esterase Test strip Ql (U) Negative NEGATIVE [facility] Nitrite Ql (U) Negative NEGATIVE [place] [facility] pH (U) 6.5 [pH] 5.0 - 9.[address] [facility] Protein (U) [Mass/Vol] 4+ Abnormal NEGAT RAJAN mg/dL [facility] Specific gravity (U) [Rel density] 1.015 1.010 - 1.[address] [facility] Urobilinogen Qn (U) Normal 0.0 - 1. 0 EU/dL [facility] Urinalysis,Microon 4 Epithelial cells LM Ql (Urine sed) 0 TO 2 Normal 0-5 [facility] Comment on above: Performed By: #### U ABDIO, UAX #### [facility] [address] [place] [address] Retail Salesworker: Ramiro Santillan MD Urine RBC's 2 TO 5 Normal 0-2 [facility] Comment on above: Performed By: #### U ABDIO, UAX #### [facility] [address] [place] [address] Retail Salesworker: Ramiro Santillan MD Urine WBC's 0 TO 2 Normal 0-5 [facility] Comment on above: Performed By: #### U ABDIO, UAX #### [facility] [address] [place] [address] Retail Salesworker: Ramiro Santillan MD Urine Drug Screenon 09-28-20 24 Amphetamines Ql (U) Negative NEGATIVE [facility] Comment on above: Cutoff: 1000 ng/mL Barbiturates Screen Ql (U) Negative NEGATIVE Bon [facility] Comment on above: Cutoff: 200 ng/ml Benzodiazepines Ql (U) Negative NEGATIVE Trip n [facility] Comment on above: Cutoff: 200 ng/ml Buprenorphine Ql (U) Negative NEGATIVE Bon [facility] Comment on above: Cutoff: 5 ng/ml Cannabinoids Screen Ql (U) Negative NEGATIVE Bon [facility] Comment on above: Cutoff: 50 ng/ml Cocaine Ql (U) Negative NEGATIVE [place] [facility] Comment on above: Cutoff: 300 ng/ml fentaNYL Ql (U) Negative NEGATIVE [facility] Comment on above: Cutoff: 5 ng/ml Methadone Ql (U) Negative NEGATIVE [facility] Comment on above: Cutoff: 300 ng/ml Opiates Screen Ql (U) Negative NEGATIVE [facility] Comment on above: Cutoff: 300 ng/ml Note: The Opiate screen is not intended to detect Oxycodone. oxyCODONE Ql (U) Negative NEGATIVE [facility] urs [facility] Comment on above: Cutoff: 100 ng/ml Phencyclidine Ql (U) Negative NEGATIVE [facility] Comment on above: Cutoff: 25 ng/ml Test Information This method is a screening test to detect only these drug classes as part of a medical workup. Confirmatory testing by another method should be ordered if clinically indicated. [facility] Venous Blood Gaseson 024 Jody Test NOT APPLICABLE [facility] Comment on above: Performed By: #### B MP #### [facility] [address] [place] [address] Retail Salesworker: Ramiro Santillan MD Body Temp. 37.0 [facility] Comment on above: Performed By: #### B MP #### [facility] [address] [place] [address] Retail Salesworker: Ramiro Santillan MD FIO2 35 [facility] Comment on above: Performed By: #### B MP #### [facility] [address] [place] [address] Retail Salesworker: Ramiro Santillan MD HCO3 (Bld) [Moles/Vol] 21.0 mmol/L Low 24.0-30.0 [facility] Comment on above: Performed By: #### B MP #### [facility] [address] [place] [address] Retail Salesworker: Ramiro Santillan MD Negative Base Excess 4.3 mmol/L High 0.0-2.0 [facility] Comment on above: Performed By: #### B MP #### [facility] [address] [place], [place] [phone] Retail Salesworker: Ramiro Santillan MD O2 Device/Flow/% VENTILATOR Normal [facility] Comment on above: Performed By: #### B MP #### [facility] [address] [place], [place] [phone] Retail Salesworker: Ramiro Santillan MD Oxygen saturation in Blood 99.0 % High 60.0-85.0 [facility] Comment on above: Performed By: #### B MP #### [facility] [address] [place] [address] Retail Salesworker: Ramiro Santillan MD pCO2 39.8 mm Hg Normal 39-55 [facility] Comment on above: Performed By: #### B MP #### [facility] [address] [place], [place] [phone] Retail Salesworker: Ramiro Santillan MD Pco2 Adj'd for Temp. 39.8 mmHg Normal 39.0-55.0 [facility] Comment on above: Performed By: #### B MP #### [facility] [address] [place], [place] 9004583 Retail Salesworker: Ramiro Santillan MD pH (Bld) 7.341 [pH] Normal 7.32-7.42 [facility] Comment on above: Performed By: #### B MP #### [facility] [address] [place], [place] [phone] Retail Salesworker: Ramiro Santillan MD pH Adjst'd for Temp. 7.341 Normal 7.320-7.[address] [facility] Comment on above: Performed By: #### B MP #### [facility] [address] [place] [address] Retail Salesworker: Ramiro Santillan MD pO2 164.8 mm Hg High 30.0-50.0 [facility] Comment on above: Performed By: #### B MP #### [facility] [address] [place] [address] Retail Salesworker: Ramiro Santillan MD pO2 Adj'd for Temp. 164.8 mmHg High 30.0-50.0 [facility] Comment on above: Performed By: #### B MP #### [facility] [address] [place] [address] Retail Salesworker: Ramiro Santillan MD XR ABDOMEN FOR NG/OG/NE TUBE PLACEMENTon 09-28-2024 XR ABDOMEN FOR NG/OG/NE TUBE PLACEMENT Normal [facility] MHPN RIS CONSOLIDATED MHPN RIS CONSOLIDATED [facility] Radiology Study observation (narrative) [facility] XR ABDOMEN FOR NG/OG/NE TUBE PLACEMENTOrdered By: Nawaf Perez on 09-28-[address] [facility] Work Phone: XR CHEST PORTABLEon 09-28-20 [...] Lito Marie MD 09/28/24 Final result Normal [facility] Physician Referralon Physician Referral [id number]#1.00T IFF Normal [facility] Physician Referralon Physician Referral [id number]#1.00T IFF Normal [facility] Q Fever Serology,IFAon 01-27 Q-Fever,Phase I IgG Negative Normal Negative [facility] Comment on above: Result Comment: [...] be performed. Performed By: #### A QFEV ####[address] [address] [facility] Director: Wil Swanson MD Q-Fever,Phase II IgG Negative Normal Negative [facility] Comment on above: Result Comment: [...] negative.No further testing will be performed.Performed By: [employer] [place] [id number] Director: Rogelio Miranda MD, PhDCLIA Number: [id number] Performed By: #### A QFEV ####[address] [address] Lab Director: Wil Swanson MD Cult,Bloodon 01-24-2024 Cult,Blood Specimen Description .BLOOD Special Requests L HAND 5 ML Culture NO GROWTH 5 DAYS Report Status FINAL 01/24/2024 Normal [facility] Comment on above: Performed By: #### B C ####[address] [id number] lab Director: Ramiro Mark MD Cult,Blood Specimen Description .BLOOD Special Requests R HAND 5 ML Culture NO GROWTH 5 DAYS Report Status FINAL 01/24/2024 Normal [facility] Comment on above: Performed By: #### B C ####[place] [address] lab Director: Ramiro Mark MD Brucella Ab, IgG/IgMon 01-22 Brucella Ab, IgG/M <1:20 Normal <1:20 [facility] Comment on above: Result Comment: [...] with a history of potential exposures.Performed By: [facility] [place] [address] [id number] Director: Rogelio Miranda MD, PhDCLIA Number: [id number] Performed By: #### A BRUAB ####[facility] [place] [address] Lab Director: Wil Swanson MD West Nile Virus, CSFon 01-22 WNV Ab IgG, CSF 0.05 IV Normal <=1.29 [facility] Comment on above: Result Comment: [...] other members of the Flaviviridae family,such as [place] encephalitis virus, show extensivecross-reactivity with West Nile virus, serologic testing specificfor these species should be considered.The detection of antibodies to West Nile virus in cerebrospinalfluid may indicate central nervous system infection. However,consideration must be given to possible contamination by blood ortransfer of serum antibodies across the blood-brain barrier.This test was developed and its performance characteristicsdetermined by [facility]. It has not been cleared orapproved by the [place] Food and Drug Administration. This test wasperformed in a CLIA certified laboratory and is intended forclinical purposes. Performed By: #### C FCNT, MEVP, CFVD, CGLU, CTP ####[facility] [place] [address] Lab Director: Ramiro Mark MD#### CHESTER MEADE ####[facility] [address] [place] [address] Lab Director: Wil Swanson MD WNV Ab IgM, CSF 0.00 IV Normal <=0.89 [facility] Comment on above: Result Comment: [...] other members of the Flaviviridae family,such as [place] encephalitis virus, show extensivecross-reactivity with West Nile virus, serologic testing specificfor these species should be considered.The detection of antibodies to West Nile virus in cerebrospinalfluid may indicate central nervous system infection. However,consideration must be given to possible contamination by blood ortransfer of serum antibodies across the blood-brain barrier.This test was developed and its performance characteristicsdetermined by [facility]. It has not been cleared orapproved by the [place] Food and Drug Administration. This test wasperformed in a CLIA certified laboratory and is intended forclinical purposes.Performed By: [facility] [place], [place] [address]Cl[facility]rx Director: Rogelio Miranda MD, PhDCLIA Number: [id number] Performed By: #### C FCNT, MEVP, CFVD, CGLU, CTP ####[place] [place] [place] [address] Lab Director: Ramiro Mark MD#### DESHAUN, CHESTER ####[facility] [place], [place] [id number] lab Director: Wil Swanson MD Basic Metabolic Panelon 04-0 Anion gap [Moles/Vol] 9 mmol/L 9 - 16 mmol/L [facility] Calcium [Mass/Vol] 8.3 mg/dL Low 8.6 - 10. 4 mg/dL [facility] Chloride [Moles/Vol] 105 mmol/L 98 - 10 7 mmol/L [facility] CO2 [Moles/Vol] 22 mmol/L 20 - 31 mmol/L [facility] Creatinine [Mass/Vol] 1.3 mg/dL High 0.70 - 1.20 mg/dL [facility] GFR/1.73 sq M.predicted MDRD (S/P/Bld) [Vol rate/Area] 69 mL/min/{1.73_m2} - PINF [facility] Glucose [Mass/Vol] 225 mg/dL High 74 - 99 mg/dL [facility] Interpretation and review of laboratory results Abnormal [facility] Potassium [Moles/Vol] 3.8 mmol/L 3.7 - 5.3 mmol/L [facility] Sodium [Moles/Vol] 136 mmol/L 136 - 145 mmol/L [facility] Urea nitrogen [Mass/Vol] 25 mg/dL High 6 - 20 mg/dL [facility] Basic Metabolic Profon 01-21 Anion gap [Moles/Vol] 9 mmol/L Normal 9-[address] [facility] Comment on above: Performed By: #### M LEENA Arana, CDP, CHELO ####[facility] HospitalSocialVoltBbcvxkeydliq9[address] [place] [id number] Lab Director: Ramiro Mark MD Calcium [Mass/Vol] 8.3 mg/dL Low 8.6-10.4 [facility] Comment on above: Performed By: #### M Sumit, LEENA, CDP, CHELO ####[employer] [address] [place] 4784808 lab Director: Ramiro Mark MD Chloride [Moles/Vol] 105 mmol/L Normal 98-107 [facility] Comment on above: Performed By: #### M Sumit, BMP, CDP, CHELO ####[address] [place] [address] Lab Director: Ramiro Mark MD CO2 [Moles/Vol] 22 mmol/L Normal 20-31 [facility] Comment on above: Performed By: #### M Sumit, LEENA, CDP, CHELO ####[address] [phone] Director: Ramiro Mark MD Creatinine [Mass/Vol] 1.3 mg/dL High 0.70-1.[address] [facility] Comment on above: Performed By: #### M Sumit, LEENA, CDP, CHELO ####[address] [phone] Director: Ramiro Mark MD GFR/1.73 sq M.predicted among non-blacks MDRD (S/P/Bld) [Vol rate/Area] 69 mL/min/{1.73_m2} Normal >60 [facility] Comment on above: Result Comment: Thes [...] Performed By: #### LEENA Purcell, CHIQUI, CHELO ####[facility] [address] [place] [address] [phone] Director: Ramiro Mark MD Glucose [Mass/Vol] 225 mg/dL High 74-99 [facility] Comment on above: Performed By: #### M LEENA Arana, CDP, CHELO ####[facility] [address] [place] [address] [phone] Director: Ramiro Mark MD Potassium [Moles/Vol] 3.8 mmol/L Normal 3.7-5.[address] [facility] Comment on above: Performed By: #### M G, BMP, CDP, CHELO ####[facility] [address] [place] [address] Lab Director: Ramiro Mark MD Sodium [Moles/Vol] 136 mmol/L Normal 136-145 [facility] Comment on above: Performed By: #### M G, BMP, CDP, CHELO ####[facility] [address] [place], [place] [phone] Lab Director: Ramiro Mark MD Urea nitrogen [Mass/Vol] 25 mg/dL High 6-20 [facility] Comment on above: Performed By: #### M G, BMP, CDP, CHELO ####[facility] [address] [place], [place] [phone] lab Director: Ramiro Mark MD CBC with Auto Differentialon 01-22-2024 Basophils (Bld) [#/Vol] 0.05 10*3/uL [facility] Basophils/100 WBC (Bld) 1 % 0 - 2 % [facility] Eosinophils (Bld) [#/Vol] 0.18 10*3/uL [facility] Eosinophils/100 WBC (Bld) 2 % 1 [...] WBC (Bld) 0 % [address] [facility] Interpretation and review of laboratory results Abnormal [facility] Lymphocytes/100 WBC (Bld) 21 % Low 24 - 43 % [facility] Lymphocytes/100 WBC (Bld) 1.58 % [facility] MCH (RBC) [Entitic mass] 29.3 pg 25.2 - 33.[address] [facility] MCHC (RBC) [Mass/Vol] 32.3 g/dL 28.4 - 34.8 g/dL [facility] MCV (RBC) [Entitic vol] 90.8 fL 82.6 - 102.9 fL [facility] Monocytes/100 WBC (Bld) 7 % 3 - 12 % [facility] Monocytes/100 WBC (Bld) 0.52 % [facility] Neutrophils/100 WBC (Bld) 69 % High 36 - 65 % [facility] Nucleated RBC/100 WBC (Bld) [Ratio] 0.0 % 0.0 per 100 WBC [facility] Platelet mean volume (Bld) [Entitic vol] 10.8 fL 8.1 - 13.5 fL [facility] Platelets (Bld) [#/Vol] 164 10*3/uL [facility] RBC (Bld) [#/Vol] 3.48 10*6/uL Low 4.21 - 5.7 7 m/uL [facility] Segmented neutrophils/100 WBC (Bld) 5.02 % [facility] WBC other (Bld) [#/Vol] 7.4 [facility] CBC with Diffon 01-22-2024 Abs. Basophil 0.05 k/uL Normal 0.00-0.20 [facility] Comment on above: Performed By: #### Andres Arana, LEENA, CDP, CHELO ####[facility] [address] [place] [address] Lab Director: Ramiro Mark MD Abs.Imm.Granulocyte <0.03 Normal 0.00-0.30 [facility] Comment on above: Performed By: #### M Sumit, LEENA, CDP, CHELO ####[employer] [address] [place] [id number] lab Director: Ramiro Mark MD Abs.Neutrophil (Seg) 5.02 k/uL Normal 1.50-8.10 [facility] Comment on above: Performed By: #### Andres Arana, BMP, CDP, CHELO ####[facility] [address] [place] [address] Lab Director: Ramiro Mark MD Basophils/100 WBC (Bld) 1 % Normal 0-2 [facility] Comment on above: Performed By: #### M G, BMP, CDP, CHELO ####[facility] [address] [place] [address] Lab Director: Ramiro Mark MD Eosinophils (Bld) [#/Vol] 0.18 10*3/uL Normal 0.00-0.44 [facility] Comment on above: Performed By: #### M G, BMP, CDP, CHELO ####[facility] [address] [place] [address] Lab Director: Ramiro Mark MD Eosinophils/100 WBC (Bld) 2 % Normal 1-4 [facility] Comment on above: Performed By: #### M G, BMP, CDP, CHELO ####[facility] [address] [place], [place] [address])[phone] Director: Ramiro Mark MD Erythrocyte distribution width (RBC) [Ratio] 13.9 % Normal 11.8-14.4 [facility] Comment on above: Performed By: #### M G, BMP, CDP, CHELO ####[facility] [address] [place] [address] Lab Director: Ramiro Mark MD Hematocrit (Bld) [Volume fraction] 31.6 % Low 40.7-50.3 [facility] Comment on above: Performed By: #### M G, BMP, CDP, CHELO ####[facility] [address] [place], [place] [address])[phone] Director: Ramiro Mark MD Hemoglobin (Bld) [Mass/Vol] 10.2 g/dL Low 13.0-17.0 [facility] Comment on above: Performed By: #### M G, BMP, CDP, CHELO ####[facility] [address] [place], [place] [phone] Director: Ramiro Mark MD Immature granulocytes/100 WBC (Bld) 0 % Normal 0 [facility] Comment on above: Performed By: #### M G, BMP, CDP, CHELO ####[facility] [address] [place], [place] [phone] Director: Ramiro Mark MD Lymphocytes (Bld) [#/Vol] 1.58 10*3/uL Normal 1.10-3.70 [facility] Comment on above: Performed By: #### M G, BMP, CDP, CHELO ####[facility] [address] [place] [address] [phone] Director: Ramiro Mark MD Lymphocytes/100 WBC (Bld) 21 % Low 24-43 [facility] Comment on above: Performed By: #### M G, BMP, CDP, CHELO ####[facility] [address] [place] [address] [phone] Director: Ramiro Mark MD MCH (RBC) [Entitic mass] 29.3 pg Normal 25.2-33.5 [facility] Comment on above: Performed By: #### M G, BMP, CDP, CHELO ####[facility] [address] [place] [address] [phone] Director: Ramiro Mark MD MCHC (RBC) [Mass/Vol] 32.3 g/dL Normal 28.4-34.[address] [facility] Comment on above: Performed By: #### M G, BMP, CDP, CHELO ####[facility] [address] [place], [place] [phone] Director: Ramiro Mark MD MCV (RBC) [Entitic vol] 90.8 fL Normal 82.6-102.9 [facility] Comment on above: Performed By: #### M G, BMP, CDP, CHELO ####[facility] [address] [place], [place] [phone] Director: Ramiro Mark MD Monocytes (Bld) [#/Vol] 0.52 10*3/uL Normal 0.10-1.20 [facility] Comment on above: Performed By: #### M G, BMP, CDP, CHELO ####[facility] [address] [place], [place] [phone] Director: Ramiro Mark MD Monocytes/100 WBC (Bld) 7 % Normal 3-12 [facility] Comment on above: Performed By: #### M G, BMP, CDP, CHELO ####[facility] [address] [place] [address] Lab Director: Ramiro Mark MD Neutrophil (Seg) 69 % High 36-65 [facility] Comment on above: Performed By: #### M G, BMP, CDP, CHELO ####[facility] [address] [place] [address] [phone] Director: Ramiro Mark MD NRBC Automated 0.0 per 100 WBC Normal 0.0 [facility] Comment on above: Performed By: #### M G, BMP, CDP, CHELO ####[facility] [address] [place], [place] [phone] Director: Ramiro Mark MD Platelet mean volume (Bld) [Entitic vol] 10.8 fL Normal 8.1-13.5 [facility] Comment on above: Performed By: #### M G, BMP, CDP, CHELO ####[facility] [address] [place], [place] [phone] Director: Ramiro Mark MD Platelets (Bld) [#/Vol] 164 10*3/uL Normal 138-453 [facility] Comment on above: Performed By: #### M G, BMP, CDP, CHELO ####[facility] [address] [place] [address] Lab Director: Ramiro Mark MD RBC (Bld) [#/Vol] 3.48 10*6/uL Low 4.21-5.77 [facility] Comment on above: Performed By: #### M G, BMP, CDP, CHELO ####[facility] [address] [place], [place] [phone] Director: Ramiro Mark MD WBC (Bld) [#/Vol] 7.4 10*3/uL Normal 3.5-11.3 [facility] Comment on above: Performed By: #### M Sumit, LEENA, CDP, CHELO ####[facility] [address] [place], [place] [phone] Director: Ramiro Mark MD Cult,CSFon 01-22-2024 Cult,CSF Normal [facility] Comment on above: Performed By: #### C FC ####[facility] [address] [place], [place] [phone] Director: Ramiro Mark MD Culture, CSFon 01-22-2024 Microorganism identified Cx Nom (Unsp spec) NO GROWTH 3 DAYS [facility] [employer] Microorganism or agent identified Nom (Unsp spec) RARE NEUTROPHILS [facility] [employer] Microorganism or agent identified Nom (Unsp spec) NO ORGANISMS SEEN [facility] Microorganism or agent identified Nom (Unsp spec) Gram stain made from cytocentrifuged specimen. Organisms and cells will be concentrated. [facility] Specimen Description .CSF [facility] [employer] [facility] [employer] Glucose,Whole Bloodon 2023 Glucose [Mass/Vol] 164 mg/dL High 75-110 [facility] Glucose [Mass/Vol] 293 mg/dL High 75-110 [facility] Glucose [Mass/Vol] 172 mg/dL High 75-110 [facility] HSV DNA, PCRon 01-22-2024 HSV 1 subtype by PCR Not detected Normal [facility] Comment on above: Performed By: #### A HSVPC ####[facility] [place] [address] lab Director: KAYLYNN Moreno [place] [phone] [facility] Director: Wil Swanson MD HSV 2 subtype by PCR Not detected Normal [facility] Comment on above: Result Comment: (NOT E)INTERPRETIVE INFORMATION: HSV-1 and HSV- 2 Subtype by PCRA negative result does not rule out the presence of PCR inhibitorsin the patient specimen or test-specific nucleic acid inconcentrations below the level of detection by this test.This test was developed and its performance characteristicsdetermined by [facility]. It has not been cleared orapproved by the [place] Food and Drug Administration. This test wasperformed in a CLIA certified laboratory and is intended forclinical purposes.Performed By: [facility] [place], [place] [address]Laboratory Director: Rogelio Miranda MD, PhDCLIA Number: [id number] Performed By: #### A HSVPC ####[id number] [place] [address] lab Director: KAYLYNN Moreno [id number] lab Director: Wil Swanson MD Herpes simplex virus PCRon 0 01-22-2024 HSV 1 SUBTYPE BY PCR Not detected TRIP [facility] HSV 2 SUBTYPE BY PCR Not detected TRIP [facility] HSV Source .CSF [facility] MR Brain WO contraston 01-21 MHPN RIS CONSOLIDATED PN RIS CONSOLIDATED [facility] Radiology Study observation (narrative) [facility] MRI BRAIN WO CONTRASTon -0 MRI BRAIN WO CONTRAST Normal Sydni [facility] Magnesiumon 01-22-2024 Magnesium [Mass/Vol] 2.2 mg/dL 1.6 - 2 .6 mg/dL [facility] Magnesium [Mass/Vol] 2.2 mg/dL Normal 1.6-2.6 [facility] Comment on above: Performed By: #### Andres Arana, BMP, CDP, CHELO ####[facility] [address] [place], [place] [id number] lab Director: Ramiro Mark MD No Panel Informationon 01-21 [facility] POC Glucose Fingerstickon Glucose [Mass/Vol] 164 mg/dL High 75 - 110 mg/dL [facility] Interpretation and review of laboratory results Abnormal [facility] Glucose [Mass/Vol] 293 mg/dL High 75 - 110 mg/dL [facility] Interpretation and review of laboratory results Abnormal [facility] Glucose [Mass/Vol] 172 mg/dL High 75 - 110 mg/dL [facility] Interpretation and review of laboratory results Abnormal [facility] Phosphoruson 01-22-2024 Phosphate [Mass/Vol] 3.2 mg/dL 2.5 - 4 .5 mg/dL [facility] Phosphorus, Inorg.on 024 Phosphorus, Inorg. 3.2 mg/dL Normal 2.5-4.5 [facility] Comment on above: Performed By: #### Andres Arana, LEEAN, CDP, CHELO ####[facility] [address] [place], [place] [id number] lab Director: Ramiro Mark MD Basic Metabolic Panelon Anion gap [Moles/Vol] 13 mmol/L 9 - 16 mmol/L [facility] Calcium [Mass/Vol] 7.9 mg/dL Low 8.6 - 10. 4 mg/dL [facility] Chloride [Moles/Vol] 105 mmol/L 98 - 10 7 mmol/L [facility] CO2 [Moles/Vol] 18 mmol/L Low 20 - 31 mmol/L [facility] Creatinine [Mass/Vol] 1.5 mg/dL High 0.70 - 1.20 mg/dL [facility] [employer] GFR/1.73 sq M.predicted MDRD (S/P/Bld) [Vol rate/Area] 58 mL/min/{1.73_m2} Low - PINF [facility] Glucose [Mass/Vol] 287 mg/dL High 74 - 99 mg/dL [facility] Interpretation and review of laboratory results Abnormal [facility] Potassium [Moles/Vol] 4.2 mmol/L 3.7 - 5.3 mmol/L [facility] Sodium [Moles/Vol] 136 mmol/L 136 - 145 mmol/L [facility] Urea nitrogen [Mass/Vol] 29 mg/dL High 6 - 20 mg/dL [facility] Basic Metabolic Profon 01-20 Anion gap [Moles/Vol] 13 mmol/L Normal 9-[address] [facility] Comment on above: Performed By: #### B MP, CHELO, CDP, MG ####[facility] [address] [place] [address] Lab Director: Ramiro Mark MD Calcium [Mass/Vol] 7.9 mg/dL Low 8.6-10.4 [facility] Comment on above: Performed By: #### B MP, CHELO, CDP, MG ####[facility] [address]glpdwid[address] [place] [address] Lab Director: Ramiro Mark MD Chloride [Moles/Vol] 105 mmol/L Normal 98-107 [facility] Comment on above: Performed By: #### B MP, CHELO, CDP, MG ####[facility] [address] [place] [address] Lab Director: Ramiro Mark MD CO2 [Moles/Vol] 18 mmol/L Low 20-31 [facility] Comment on above: Performed By: #### B MP, CHELO, CDP, MG ####[facility] [address] [place], [place] [id number] Lab Director: Ramiro Mark MD Creatinine [Mass/Vol] 1.5 mg/dL High 0.70-1.[address] [facility] Comment on above: Performed By: #### B MP, CHELO, CDP, MG ####[facility] [address] [place] [address] Lab Director: Ramiro Mark MD GFR/1.73 sq M.predicted among non-blacks MDRD (S/P/Bld) [Vol rate/Area] 58 mL/min/{1.73_m2} Low >60 [facility] Comment on above: Result Comment: Thes [...] #### B MP, CHELO, CDP, MG ####[facility] [address] [place], [place] [address])[phone] Director: Ramiro Mark MD Glucose [Mass/Vol] 287 mg/dL High 74-99 [facility] Comment on above: Performed By: #### B MP, CHELO, CDP, MG ####[facility] [address] [place], [place] [address])[phone] Director: Ramiro Mark MD Potassium [Moles/Vol] 4.2 mmol/L Normal 3.7-5.[address] [facility] Comment on above: Performed By: #### B MP, CHELO, CDP, MG ####[facility] [address] [place], [place] [id number])[phone] Director: Ramiro Mark MD Sodium [Moles/Vol] 136 mmol/L Normal 136-145 [facility] Comment on above: Performed By: #### B MP, CHELO, CDP, MG ####[facility] [address] [place] [address] Lab Director: Ramiro Mark MD Urea nitrogen [Mass/Vol] 29 mg/dL High 6-20 [facility] Comment on above: Performed By: #### B MP, CHELO, CDP, MG ####[facility] [address] [place], [place] [id number] lab Director: Ramiro Mark MD CBC with Auto Differentialon 01-21-2024 Basophils (Bld) [#/Vol] 0.03 10*3/uL [facility] Basophils/100 WBC (Bld) 0 % 0 - 2 % [facility] Eosinophils (Bld) [#/Vol] 0.06 10*3/uL [facility] Eosinophils/100 WBC (Bld) 1 % 1 - 4 % [facility] Erythrocyte distribution width (RBC) [Ratio] 14.2 % 11.8 - 14.4 % [facility] Hematocrit (Bld) [Volume fraction] 31.9 % Low 40.7 - 50.3 % [facility] Hemoglobin (Bld) [Mass/Vol] 10.3 g/dL Low 13.0 - 17.0 g/dL [facility] Immature granulocytes (Bld) [#/Vol] 0.03 10*3/uL [facility] Immature granulocytes/100 WBC (Bld) 0 % 0 [facility] Interpretation and review of laboratory results Abnormal [facility] Lymphocytes/100 WBC (Bld) 14 % Low 24 - 43 % [facility] Lymphocytes/100 WBC (Bld) 1.29 % [facility] MCH (RBC) [Entitic mass] 29.3 pg 25.2 - 33.5 pg [facility] MCHC (RBC) [Mass/Vol] 32.3 g/dL 28.4 - 34.8 g/dL [facility] MCV (RBC) [Entitic vol] 90.6 fL 82.6 - 102.9 fL [facility] Monocytes/100 WBC (Bld) 8 % 3 - 12 % [facility] Monocytes/100 WBC (Bld) 0.70 % [facility] Neutrophils/100 WBC (Bld) 77 % High 36 - 65 % [facility] Nucleated RBC/100 WBC (Bld) [Ratio] 0.0 % 0.0 per 100 WBC [facility] Platelet mean volume (Bld) [Entitic vol] 10.7 fL 8.1 - 13.5 fL [facility] Platelets (Bld) [#/Vol] 162 10*3/uL [facility] RBC (Bld) [#/Vol] 3.52 10*6/uL Low 4.21 - 5.7 7 m/uL [facility] Segmented neutrophils/100 WBC (Bld) 7.13 % [facility] WBC other (Bld) [#/Vol] 9.2 [facility] CBC with Diffon 01-21-2024 Abs. Basophil 0.03 k/uL Normal 0.00-0.20 [facility] Comment on above: Performed By: #### B MP, CHELO, CDP, MG ####[facility] [address] [place], [place] [address])[phone] Director: Ramiro Mark MD Abs.Imm.Granulocyte 0.03 k/uL Normal 0.00-0.30 [facility] Comment on above: Performed By: #### B MP, CHELO, CDP, MG ####[facility] [address] [place], [place] [phone] Director: Ramiro Mark MD Abs.Neutrophil (Seg) 7.13 k/uL Normal 1.50-8.10 [facility] Comment on above: Performed By: #### B MP, CHELO, CDP, MG ####[facility] [address]fcoxgtcq00[address] [place] [address] Lab Director: Ramiro Mark MD Basophils/100 WBC (Bld) 0 % Normal 0-2 [facility] Comment on above: Performed By: #### B MP, CHELO, CDP, MG ####[facility] [address]jzsocr25[address] [place] [address] Lab Director: Ramiro Mark MD Eosinophils (Bld) [#/Vol] 0.06 10*3/uL Normal 0.00-0.44 [facility] Comment on above: Performed By: #### B MP, CHELO, CDP, MG ####[facility] [address] [place], [place] [address])[phone] Director: Ramiro Mark MD Eosinophils/100 WBC (Bld) 1 % Normal 1-4 [facility] Comment on above: Performed By: #### B MP, CHELO, CDP, MG ####[facility] [address] [place], [place] [address])[phone] Director: Ramiro Mark MD Erythrocyte distribution width (RBC) [Ratio] 14.2 % Normal 11.8-14.4 [facility] Comment on above: Performed By: #### B MP, CHELO, CDP, MG ####[place], [place] [address])[phone] Director: Ramiro Mark MD Hematocrit (Bld) [Volume fraction] 31.9 % Low 40.7-50.3 [facility] Comment on above: Performed By: #### B MP, CHELO, CDP, MG ####[facility] [address] [place], [place] [address])[phone] Director: Ramiro Mark MD Hemoglobin (Bld) [Mass/Vol] 10.3 g/dL Low 13.0-17.0 [facility] Comment on above: Performed By: #### B MP, CHELO, CDP, MG ####[facility] [address] [place], [place] [address])[phone] Director: Ramiro Mark MD Immature granulocytes/100 WBC (Bld) 0 % Normal 0 [facility] Comment on above: Performed By: #### B MP, CHELO, CDP, MG ####[facility] [address] [place], [place] [address])[phone] Director: Ramiro Mark MD Lymphocytes (Bld) [#/Vol] 1.29 10*3/uL Normal 1.10-3.70 [facility] Comment on above: Performed By: #### B MP, CHELO, CDP, MG ####[facility] [address] [place] [address] Lab Director: Ramiro Mark MD Lymphocytes/100 WBC (Bld) 14 % Low 24-43 [facility] Comment on above: Performed By: #### B MP, CHELO, CDP, MG ####[facility] [address] [place] [address] Lab Director: Ramiro Mark MD MCH (RBC) [Entitic mass] 29.3 pg Normal 25.2-33.5 [facility] Comment on above: Performed By: #### B MP, CHELO, CDP, MG ####[facility] [address] [place], [place] [address])[phone] Director: Ramiro Mark MD MCHC (RBC) [Mass/Vol] 32.3 g/dL Normal 28.4-34.[address] [facility] Comment on above: Performed By: #### B MP, CHELO, CDP, MG ####[facility] [address] [place], [place] [address])[phone] Director: Ramiro Mark MD MCV (RBC) [Entitic vol] 90.6 fL Normal 82.6-102.9 [facility] Comment on above: Performed By: #### B MP, CHELO, CDP, MG ####[facility] [address] [place] [address] Lab Director: Ramiro Mark MD Monocytes (Bld) [#/Vol] 0.70 10*3/uL Normal 0.10-1.20 [facility] Comment on above: Performed By: #### B MP, CHELO, CDP, MG ####[facility] [address]wh[address] [place] [address] Lab Director: Ramiro Mark MD Monocytes/100 WBC (Bld) 8 % Normal 3-12 [facility] Comment on above: Performed By: #### B MP, CHELO, CDP, MG ####[facility] [address] [place], [place] [phone] Director: Ramiro Mark MD Neutrophil (Seg) 77 % High 36-65 [facility] Comment on above: Performed By: #### B MP, CHELO, CDP, MG ####[facility] [address] [place] [address] [id number])[phone] Director: Ramiro Mark MD NRBC Automated 0.0 per 100 WBC Normal 0.0 [facility] Comment on above: Performed By: #### B MP, CHELO, CDP, MG ####[facility] [address] [place], [place] [id number])[phone] Director: Ramiro Mark MD Platelet mean volume (Bld) [Entitic vol] 10.7 fL Normal 8.1-13.5 [facility] Comment on above: Performed By: #### B MP, CHELO, CDP, MG ####[facility] [address] [place] [address] [id number])[phone] Director: Ramiro Mark MD Platelets (Bld) [#/Vol] 162 10*3/uL Normal 138-453 [facility] Comment on above: Performed By: #### B MP, CHELO, CDP, MG ####[facility] [address] [place] [address] [phone] Director: Ramiro Mark MD RBC (Bld) [#/Vol] 3.52 10*6/uL Low 4.21-5.77 [facility] Comment on above: Performed By: #### B MP, CHELO, CDP, MG ####[facility] [address] [place], [place] [id number])[phone] Director: Ramiro Mark MD WBC (Bld) [#/Vol] 9.2 10*3/uL Normal 3.5-11.3 [facility] Comment on above: Performed By: #### B MP, CHELO, CDP, MG ####[facility] [place], [place] [id number] lab Director: Ramiro Mark MD Cardiac echo study Procedure Ordered By: Christopher Cochran on 01-21-2024 Ao Root Index 1.57 cm/m2 [employer] Phone: Aortic Root 3.3 cm [employer] Phone: AV Area by Peak Velocity 2.4 cm2 [employer] Phone: AV Area by VTI 2.4 cm2 [employer] Phone: AV Mean Gradient 4 mmHg [employer] Phone: AV Mean Velocity 0.9 m/s [employer] Phone: AV Peak Gradient 7 mmHg [employer] Phone: AV Peak Velocity 1.4 m/s [employer] Phone: AV Velocity Ratio 0.71 [employer] Phone: AV VTI 27.9 cm [employer] Phone: EZIO/BSA Peak Velocity 1.1 cm2/m2 [employer] Phone: EZIO/BSA VTI 1.1 cm2/m2 [employer] Phone: Body surface area Derived from formula 2.13 m2 [employer] Phone: E/E' Lateral 12.17 [employer] Phone: E/E' Ratio (Averaged) 10.65 [employer] Phone: Est. RA Pressure 8 mmHg [employer] Work Phone: Fractional Shortening 2D 20 % 28 - 44 % [employer] Work Phone: Interpretation and review of laboratory results Abnormal [employer] Work Phone: IVSd 1.5 cm Abnormal 0.6 - 1.0 cm [employer] Work Phone: LA Area 2C 13.9 cm2 [employer] Work Phone: LA Area 4C 16.0 cm2 [employer] Work Phone: LA Diameter 3.5 cm [employer] Phone: LA Major [place] 4.6 cm [employer] Phone: LA Minor [place] 4.3 cm [employer] Work Phone: LA Size Index 1.67 cm/m2 [employer] Work Phone: LA Volume BP 41 mL 18 - 58 mL [employer] Work Phone: LA Volume Index BP 20 ml/m2 16 - 34 ml/m2 [employer] Work Phone: LA Volume Index MOD A2C 19 ml/m2 16 - 34 ml/m2 [employer] Work Phone: LA Volume Index MOD A4C 20 ml/m2 16 - 34 ml/m2 [employer] Work Phone: LA Volume MOD A2C 39 mL 18 - 58 mL [employer] Work Phone: LA Volume MOD A4C 42 mL 18 - 58 mL [employer] Work Phone: LA/AO Root Ratio 1.06 [employer] Work Phone: LV E' Lateral Velocity 6 cm/s [employer] Work Phone: LV E' Septal Velocity 8 cm/s [employer] Work Phone: LV EDV A2C 73 mL [employer] Work Phone: LV EDV A4C 83 mL [employer] Work Phone: LV EDV Index A2C 35 mL/m2 [employer] Work Phone: LV EDV Index A4C 40 mL/m2 [employer] Work Phone: LV Ejection Fraction A2C 58 % [employer] Work Phone: LV Ejection Fraction A4C 51 % [employer] Work Phone: LV ESV A2C 31 mL [employer] Work Phone: LV ESV A4C 40 mL [employer] Work Phone: LV ESV Index A2C 15 mL/m2 [employer] Work Phone: LV ESV Index A4C 19 mL/m2 [employer] Work Phone: LV Mass 2D 220.7 g 88 - 224 g [employer] Work Phone: LV Mass 2D Index 105.1 g/m2 49 - 115 g/m2 [employer] Work Phone: LV RWT Ratio 0.70 [employer] Work Phone: LVIDd 4.0 cm Abnormal 4.2 - 5.9 cm [employer] Work Phone: LVIDd Index 1.90 cm/m2 [employer] Work Phone: LVIDs 3.2 cm [employer] Work Phone: LVIDs Index 1.52 cm/m2 [facility] [employer] [facility] Work Phone: LVOT Area 3.5 cm2 [employer] Work Phone: LVOT Diameter 2.1 cm [employer] Work Phone: LVOT Mean Gradient 2 mmHg [facility] [employer] [facility] Work Phone: LVOT Peak Gradient 4 mmHg [employer] Work Phone: LVOT Peak Velocity 1.0 m/s [employer] Work Phone: [phone] LVOT Stroke Volume Index 32.5 mL/m2 [employer] Work Phone: LVOT SV 68.2 ml [employer] Work Phone: LVOT VTI 19.7 cm [employer] Work Phone: LVOT:AV VTI Index 0.71 BON SEC OURS [employer] Work Phone: LVPWd 1.4 cm Abnormal 0.6 - 1.0 cm SH[employer]ON [employer] Work Phone: MV A Velocity 0.69 m/s [employer] Work Phone: MV Area by VTI 3.0 cm2 BON GRUZOBZORBRIANNA S [employer] Work Phone: MV E Velocity 0.73 m/s [employer] Work Phone: MV E Wave Deceleration Time 155.0 ms [employer] Work Phone: MV E/A 1.06 [employer] Work Phone: [phone] MV Max Velocity 0.9 m/s BON SECOU RS [employer] Work Phone: MV Mean Gradient 2 mmHg BON SECO URS [employer] Work Phone: MV Mean Velocity 0.6 m/s BON [employer] Work Phone: MV Peak Gradient 3 mmHg BON SECO [employer] Work Phone: MV VTI 22.7 cm BON SECELYSIA [employer] Work Phone: MV:LVOT VTI Index 1.15 BON SEC [employer]S [employer] Work Phone: PV Max Velocity 0.9 m/s BON SECOU RS [employer] Work Phone: PV Peak Gradient 3 mmHg BON SECO URS [employer] Work Phone: RV Basal Dimension 3.8 cm BON COURS [employer] Work Phone: RV Free Wall Peak S' 17 cm/s [employer]ON [employer] Work Phone: RVSP 40 mmHg [employer]ON [employer] Work Phone: TAPSE 3.1 cm 1.7 cm BON LASHONDA [employer] Work Phone: TR Max Velocity 2.82 m/s BON SECOU RS [employer] Work Phone: TR Peak Gradient 32 mmHg BON SECO ME[employer] Work Phone: SHARON [employer] Work Phone: Cardiac echo study Procedure on 01-21-2024 [facility] Study observation (narrative) [employer] Glucose,Whole Bloodon 2023 Glucose [Mass/Vol] 195 mg/dL High 75-110 [facility] Glucose [Mass/Vol] 237 mg/dL High 75-110 [facility] Glucose [Mass/Vol] 205 mg/dL High 75-110 [facility] Glucose [Mass/Vol] 237 mg/dL High 75-110 [facility] Glucose [Mass/Vol] 248 mg/dL High 75-110 [facility] Lyme Disease AB, CSFon 01-20 B. burgdorferi Ab IA Qn (CSF) 0.08 NINF [facility] Lyme Disease Ab,CSFon 2023 B burgdorferi Ab,CSF 0.08 IV Normal <=0.90 [facility] Comment on above: Result Comment: [...] was developed and its performance characteristicsdetermined by [facility]. It has not been cleared orapproved by the [place] Food and Drug Administration. This test wasperformed in a CLIA certified laboratory and is intended forclinical purposes.Performed By: [facility] [place] [id number] Director: Rogelio Miranda MD, PhDCLIA Number: [id number] Performed By: #### C FCNT, MEVP, CFVD, CGLU, CTP ####[address] [place] [address] Lab Director: Ramiro Mark MD#### [place], [place] ####[facility] [place], [place] [id number] lab Director: Wil Swanson MD Magnesiumon 01-21-2024 Magnesium [Mass/Vol] 1.9 mg/dL 1.6 - 2 .6 mg/dL [facility] Magnesium [Mass/Vol] 1.9 mg/dL Normal 1.6-2.6 [facility] Comment on above: Performed By: #### B MP, CHELO, CDP, MG ####[facility] [address]bhjusgrpsxz[address]21 [place] [address] lab Director: Ramiro Mark MD No Panel Informationon 01-20 [facility] POC Glucose Fingerstickon Glucose [Mass/Vol] 195 mg/dL High 75 - 110 mg/dL [facility] Interpretation and review of laboratory results Abnormal [facility] Glucose [Mass/Vol] 237 mg/dL High 75 - 110 mg/dL [facility] Interpretation and review of laboratory results Abnormal [facility] Glucose [Mass/Vol] 205 mg/dL High 75 - 110 mg/dL [facility] Interpretation and review of laboratory results Abnormal [facility] Glucose [Mass/Vol] 237 mg/dL High 75 - 110 mg/dL [facility] Interpretation and review of laboratory results Abnormal [facility] Glucose [Mass/Vol] 248 mg/dL High 75 - 110 mg/dL [facility] Interpretation and review of laboratory results Abnormal [facility] Phosphoruson 01-21-2024 Phosphate [Mass/Vol] 3.9 mg/dL 2.5 - 4 .5 mg/dL [facility] Phosphorus, Inorg.on 024 Phosphorus, Inorg. 3.9 mg/dL Normal 2.5-4.5 [facility] Comment on above: Performed By: #### B MP, CHELO, CDP, MG ####[facility] [address]uj[address] [place], [place] [id number] lab Director: Ramiro Mark MD Arterial Bld Gas,POCon 01-19 Jody Test Positive Normal [facility] FIO2 30.0 Normal [facility] HCO3 (Bld) [Moles/Vol] 22.4 mmol/L Normal 21.0-28.0 [facility] Negative Base Excess (calc) 1.3 mmol/L Normal 0.0-2.0 [facility] O2 Device Adult Ventilator Normal [facility] Oxygen saturation in Blood 99.2 % High 94.0-98.0 [facility] pCO2, Arterial 32.5 mm Hg Low 35.0-48.0 [facility] pH, Arterial 7.446 Normal 7.350-7.450 [facility] pO2, Arterial 135.0 mm Hg High 83.0-108.0 [facility] Site Drawn Right Radial Artery Normal [facility] Arterial Blood Gas, POCon Jody Test Positive [facility] [employer] FIO2 30.0 [facility] [employer] HCO3 (Bld) [Moles/Vol] 22.4 mmol/L 21.0 - 28.0 mmol/L [facility] [employer] Negative Base Excess, Art 1.3 mmol/L 0.0 - 2.0 mmol/L [facility] [employer] O2 Delivery Device Adult Ventilator [facility] [employer] Oxygen saturation in Blood 99.2 % High 94.0 - 98.0 % [facility] [employer] POC pCO2 32.5 Low [facility] [employer] POC pH 7.446 7.350 - 7.450 [facility] [employer] POC PO2 135.0 High [facility] [employer] Sample Site Right Radial Artery [facility] Basic Metabolic Panelon Anion gap [Moles/Vol] 12 mmol/L 9 - 16 mmol/L [facility] Calcium [Mass/Vol] 8.0 mg/dL Low 8.6 - 10. 4 mg/dL [facility] Chloride [Moles/Vol] 107 mmol/L 98 - 10 7 mmol/L [facility] CO2 [Moles/Vol] 16 mmol/L Low 20 - 31 mmol/L [facility] Creatinine [Mass/Vol] 1.5 mg/dL High 0.70 - 1.20 mg/dL [facility] GFR/1.73 sq M.predicted MDRD (S/P/Bld) [Vol rate/Area] 55 mL/min/{1.73_m2} Low - PINF [facility] Glucose [Mass/Vol] 211 mg/dL High 74 - 99 mg/dL [facility] Potassium [Moles/Vol] 4.0 mmol/L 3.7 - 5.3 mmol/L [facility] Sodium [Moles/Vol] 135 mmol/L Low 136 - 145 mmol/L [facility] Urea nitrogen [Mass/Vol] 32 mg/dL High 6 - 20 mg/dL [facility] Anion gap [Moles/Vol] 13 mmol/L 9 - 16 mmol/L [facility] Calcium [Mass/Vol] 8.3 mg/dL Low 8.6 - 10. 4 mg/dL [facility] Chloride [Moles/Vol] 106 mmol/L 98 - 10 7 mmol/L [facility] CO2 [Moles/Vol] 18 mmol/L Low 20 - 31 mmol/L [facility] Creatinine [Mass/Vol] 1.6 mg/dL High 0.70 - 1.20 mg/dL [facility] GFR/1.73 sq M.predicted MDRD (S/P/Bld) [Vol rate/Area] 51 mL/min/{1.73_m2} Low - PINF [facility] Glucose [Mass/Vol] 244 mg/dL High 74 - 99 mg/dL [facility] Potassium [Moles/Vol] 4.4 mmol/L 3.7 - 5.3 mmol/L [facility] Sodium [Moles/Vol] 137 mmol/L 136 - 145 mmol/L [facility] Urea nitrogen [Mass/Vol] 33 mg/dL High 6 - 20 mg/dL [facility] Anion gap [Moles/Vol] 10 mmol/L 9 - 16 mmol/L [facility] Calcium [Mass/Vol] 7.6 mg/dL Low 8.6 - 10. 4 mg/dL [facility] Chloride [Moles/Vol] 106 mmol/L 98 - 10 7 mmol/L [facility] CO2 [Moles/Vol] 20 mmol/L 20 - 31 mmol/L [facility] Creatinine [Mass/Vol] 1.6 mg/dL High 0.70 - 1.20 mg/dL [facility] GFR/1.73 sq M.predicted MDRD (S/P/Bld) [Vol rate/Area] 51 mL/min/{1.73_m2} Low - PINF [facility] Glucose [Mass/Vol] 186 mg/dL High 74 - 99 mg/dL [facility] Interpretation and review of laboratory results Abnormal [facility] Potassium [Moles/Vol] 4.0 mmol/L 3.7 - 5.3 mmol/L [facility] Sodium [Moles/Vol] 136 mmol/L 136 - 145 mmol/L [facility] Urea nitrogen [Mass/Vol] 39 mg/dL High 6 - 20 mg/dL [facility] Anion gap [Moles/Vol] 9 mmol/L 9 - 16 mmol/L [facility] Calcium [Mass/Vol] 7.9 mg/dL Low 8.6 - 10. 4 mg/dL [facility] Chloride [Moles/Vol] 105 mmol/L 98 - 10 7 mmol/L [facility] CO2 [Moles/Vol] 21 mmol/L 20 - 31 mmol/L [facility] Creatinine [Mass/Vol] 1.6 mg/dL High 0.70 - 1.20 mg/dL [facility] GFR/1.73 sq M.predicted MDRD (S/P/Bld) [Vol rate/Area] 51 mL/min/{1.73_m2} Low - PINF [facility] Glucose [Mass/Vol] 180 mg/dL High 74 - 99 mg/dL [facility] Interpretation and review of laboratory results Abnormal [facility] Potassium [Moles/Vol] 4.3 mmol/L 3.7 - 5.3 mmol/L [facility] Sodium [Moles/Vol] 135 mmol/L Low 136 - 145 mmol/L [facility] Urea nitrogen [Mass/Vol] 41 mg/dL High 6 - 20 mg/dL [facility] Anion gap [Moles/Vol] 10 mmol/L 9 - 16 mmol/L [facility] Calcium [Mass/Vol] 8.1 mg/dL Low 8.6 - 10. 4 mg/dL [facility] Chloride [Moles/Vol] 106 mmol/L 98 - 10 7 mmol/L [facility] CO2 [Moles/Vol] 21 mmol/L 20 - 31 mmol/L [facility] Creatinine [Mass/Vol] 1.6 mg/dL High 0.70 - 1.20 mg/dL [facility] GFR/1.73 sq M.predicted MDRD (S/P/Bld) [Vol rate/Area] 51 mL/min/{1.73_m2} Low - PINF [facility] Glucose [Mass/Vol] 135 mg/dL High 74 - 99 mg/dL [facility] Interpretation and review of laboratory results Abnormal [facility] Potassium [Moles/Vol] 4.0 mmol/L 3.7 - 5.3 mmol/L [facility] Sodium [Moles/Vol] 137 mmol/L 136 - 145 mmol/L [facility] Urea nitrogen [Mass/Vol] 40 mg/dL High 6 - 20 mg/dL [facility] Basic Metabolic Profon 01-19 Anion gap [Moles/Vol] 12 mmol/L Normal 9-[address] [facility] Comment on above: Performed By: #### B MP, CHELO, MG ####[facility] [address] [place] [address] Lab Director: Ramiro Mark MD Calcium [Mass/Vol] 8.0 mg/dL Low 8.6-10.4 [facility] Comment on above: Performed By: #### B MP, CHELO, MG ####[employer] [address] [place] [id number] lab Director: Ramiro Mark MD Chloride [Moles/Vol] 107 mmol/L Normal 98-107 [facility] Comment on above: Performed By: #### B MP, CHELO, MG ####[facility] [address]frbpk[address] [place] [address] Lab Director: Ramiro Mark MD CO2 [Moles/Vol] 16 mmol/L Low 20-31 [facility] Comment on above: Performed By: #### B MP, CHELO, MG ####[facility] Asnvdviycmcq0116 [place] [address] Lab Director: Ramiro Mark MD Creatinine [Mass/Vol] 1.5 mg/dL High 0.70-1.[address] [facility] Comment on above: Performed By: #### B MP, CHELO, MG ####[facility] Pocbhlsyyouh3516 [place], [place] [address])[phone] Director: Ramiro Mark MD GFR/1.73 sq M.predicted among non-blacks MDRD (S/P/Bld) [Vol rate/Area] 55 mL/min/{1.73_m2} Low >60 [facility] Comment on above: Result Comment: Thes [...] By: #### B MP, CHELO, MG ####[facility] Gcnwererwtpo9078 [place] [address] Lab Director: Ramiro Mark MD Glucose [Mass/Vol] 211 mg/dL High 74-99 [facility] Comment on above: Performed By: #### B MP, CHELO, MG ####[facility] Ywyoncjqyfsq2939 [place], [place] [phone] Director: Ramiro Mark MD Potassium [Moles/Vol] 4.0 mmol/L Normal 3.7-5.[address] [facility] Comment on above: Performed By: #### B MP, CHELO, MG ####[facility] Iaqvrxqpvrfi2147 [place], [place] [phone] Director: Ramiro Mark MD Sodium [Moles/Vol] 135 mmol/L Low 136-145 [facility] Comment on above: Performed By: #### B MP, CHELO, MG ####[facility] Efqxznjoabrw1943 [place], [place] [phone] Director: Ramiro Mark MD Urea nitrogen [Mass/Vol] 32 mg/dL High 6-20 [facility] Comment on above: Performed By: #### B MP, CHELO, MG ####[facility] Uoivzykdrrvv3684 [place], [place] [phone] Director: Ramiro Mark MD Anion gap [Moles/Vol] 13 mmol/L Normal 9-[address] [facility] Comment on above: Performed By: #### B MP, MG, CHELO ####[facility] Ttanqgtztpnl1558 [place], [place] [phone] Director: Ramiro Mark MD Calcium [Mass/Vol] 8.3 mg/dL Low 8.6-10.4 [facility] Comment on above: Performed By: #### B MP, MG, CHELO ####[facility] Rsaotyctgkgz5241 [place], [place] [id number])[phone] Director: Ramiro Mark MD Chloride [Moles/Vol] 106 mmol/L Normal 98-107 [facility] Comment on above: Performed By: #### B MP, MG, CHELO ####[facility] Sfploxejlzoc5828 [place], [place] [id number])[phone] Director: Ramiro Mark MD CO2 [Moles/Vol] 18 mmol/L Low 20-31 [facility] Comment on above: Performed By: #### B MP, MG, CHELO ####[facility] Btrokoftjfoh5447 [place], [place] [id number])[phone] Director: Ramiro aMrk MD Creatinine [Mass/Vol] 1.6 mg/dL High 0.70-1.[address] [facility] Comment on above: Performed By: #### B MP, MG, CHELO ####[facility] [address] [place] [address] [phone] Director: Ramiro Mark MD GFR/1.73 sq M.predicted among non-blacks MDRD (S/P/Bld) [Vol rate/Area] 51 mL/min/{1.73_m2} Low >60 [facility] Comment on above: Result Comment: Thes [...] By: #### B MP, MG, CHELO ####[facility] [address] [place] [address])[phone] Director: Ramiro Mark MD Glucose [Mass/Vol] 244 mg/dL High 74-99 [facility] Comment on above: Performed By: #### B MP, MG, CHELO ####[facility] [address] [place] [address] Lab Director: Ramiro Mark MD Potassium [Moles/Vol] 4.4 mmol/L Normal 3.7-5.[address] [facility] Comment on above: Performed By: #### B MP, MG, CHELO ####[facility] Lzjxvavleoxr4880 [place], [place] [phone])[phone] Director: Ramiro Mark MD Sodium [Moles/Vol] 137 mmol/L Normal 136-145 [facility] Comment on above: Performed By: #### B MP, MG, CHELO ####[facility] Mwtetxzezbvo8296 [place], [place] [phone] Director: Ramiro Mark MD Urea nitrogen [Mass/Vol] 33 mg/dL High 6-20 [facility] Comment on above: Performed By: #### B MP, MG, CHELO ####[facility] Tbllnztxhpsi1262 [place], [place] [id number])[phone] Director: Ramiro Mark MD Anion gap [Moles/Vol] 10 mmol/L Normal 9-[address] [facility] Comment on above: Performed By: #### L ACTIC, CHELO, MG, BMP ####[facility] Fihlbvztqvfk3836 [place], [place] [phone] Director: Ramiro Mark MD Calcium [Mass/Vol] 7.6 mg/dL Low 8.6-10.4 [facility] Comment on above: Performed By: #### L ACTIC, CHELO, MG, BMP ####[facility] Arvdpathsgzs3348 [place], [place] [id number])[phone] Director: Ramiro Mark MD Chloride [Moles/Vol] 106 mmol/L Normal 98-107 [facility] Comment on above: Performed By: #### L ACTIC, CHELO, MG, BMP ####[facility] Roddyamqfzup6582 [place], [place] [phone])[phone] Director: Ramiro Mark MD CO2 [Moles/Vol] 20 mmol/L Normal 20-31 [facility] Comment on above: Performed By: #### L ACTIC, CHELO, MG, BMP ####[facility] Huxgbepfyxrz8688 [place], [place] [id number])[phone] Director: Ramiro Mark MD Creatinine [Mass/Vol] 1.6 mg/dL High 0.70-1.[address] [facility] Comment on above: Performed By: #### L ACTIC, CHELO, MG, BMP ####[facility] Bvdjjnnjvwpr6861 [place], [place] [id number])[phone] Director: Ramiro Mark MD GFR/1.73 sq M.predicted among non-blacks MDRD (S/P/Bld) [Vol rate/Area] 51 mL/min/{1.73_m2} Low >60 [facility] Comment on above: Result Comment: Thes [...] #### L ACTIC, CHELO, MG, BMP ####[facility] L[address]fgygmvcgi0130 [place], [place] [address])[phone] Director: Ramiro Mark MD Glucose [Mass/Vol] 186 mg/dL High 74-99 [facility] Comment on above: Performed By: #### L ACTIC, CHELO, MG, BMP ####[facility] [address]xf[address]rieja5[address] [place], [place] [address])[phone] Director: Ramiro Mark MD Potassium [Moles/Vol] 4.0 mmol/L Normal 3.7-5.[address] [facility] Comment on above: Performed By: #### L ACTIC, CHELO, MG, BMP ####[facility] Cosjcxfruqbe7875 [place] [address] Lab Director: Ramiro Mark MD Sodium [Moles/Vol] 136 mmol/L Normal 136-145 [facility] Comment on above: Performed By: #### L ACTIC, CHELO, MG, BMP ####[facility] Lclxlegcjexs8[address] [place], [place] [address])[phone] Director: Ramiro Mark MD Urea nitrogen [Mass/Vol] 39 mg/dL High 6-20 [facility] Comment on above: Performed By: #### L ACTIC, CHELO, MG, BMP ####[facility] Sn[address]kbkutopj9800 [place] [address] Lab Director: Ramiro Mark MD Anion gap [Moles/Vol] 9 mmol/L Normal 9-[address] [facility] Comment on above: Performed By: #### B MP, CHELO, TRIG, VNCR, CDP, MG ####[facility] [address]unb2197 [place] [address] Lab Director: Ramiro Mark MD Calcium [Mass/Vol] 7.9 mg/dL Low 8.6-10.4 [facility] Comment on above: Performed By: #### B MP, CHELO, TRIG, VNCR, CDP, MG ####[facility] Fvfasaanbilq4740 [place], [place] [address])[phone] Director: Ramiro Mark MD Chloride [Moles/Vol] 105 mmol/L Normal 98-107 [facility] Comment on above: Performed By: #### B MP, CHELO, TRIG, VNCR, CDP, MG ####[facility] Qeyrseztgrnd5206 [place], [place] [address])[phone] Director: Ramiro Mark MD CO2 [Moles/Vol] 21 mmol/L Normal 20-31 [facility] Comment on above: Performed By: #### B MP, CHELO, TRIG, VNCR, CDP, MG ####[facility] Sgliebabkjtd5666 [place], [place] [address])[phone] Director: Ramiro Mark MD Creatinine [Mass/Vol] 1.6 mg/dL High 0.70-1.[address] [facility] Comment on above: Performed By: #### B MP, CHELO, TRIG, VNCR, CDP, MG ####[facility] Cijejpfjxqlm1712 [place], [place] [address])[phone] Director: Ramiro Mark MD GFR/1.73 sq M.predicted among non-blacks MDRD (S/P/Bld) [Vol rate/Area] 51 mL/min/{1.73_m2} Low >60 [facility] Comment on above: Result Comment: Thes [...] MP, CHELO, TRIG, VNCR, CDP, MG ####[facility] [address] [place] [address])[phone] Director: Ramiro Mark MD Glucose [Mass/Vol] 180 mg/dL High 74-99 [facility] Comment on above: Performed By: #### B MP, CHELO, TRIG, VNCR, CDP, MG ####[address] [address])[phone] Director: Ramiro Mark MD Potassium [Moles/Vol] 4.3 mmol/L Normal 3.7-5.[address] [facility] Comment on above: Performed By: #### B MP, CHELO, TRIG, VNCR, CDP, MG ####[facility] [address] [place] [address])[phone] Director: Ramiro Mark MD Sodium [Moles/Vol] 135 mmol/L Low 136-145 [facility] Comment on above: Performed By: #### B MP, CHELO, TRIG, VNCR, CDP, MG ####[facility] [address]jlxwxeyege[address] [place] [address])[phone] Director: Ramiro Mark MD Urea nitrogen [Mass/Vol] 41 mg/dL High 6-20 [facility] Comment on above: Performed By: #### B MP, CHELO, TRIG, VNCR, CDP, MG ####[facility] Tirfzhltzeng1722 [place], [place] [address])[phone] Director: Ramiro Mark MD Anion gap [Moles/Vol] 10 mmol/L Normal 9-[address] [facility] Comment on above: Performed By: #### P HO, LACTIC, BMP, MG ####[facility] Mcxsevijhpfx2519 [place], [place] [address])[phone] Director: Ramiro Mark MD Calcium [Mass/Vol] 8.1 mg/dL Low 8.6-10.4 [facility] Comment on above: Performed By: #### P HO, LACTIC, BMP, MG ####[facility] Kjpxfzvpxdwv6834 [place], [place] [address])[phone] Director: Ramiro Mark MD Chloride [Moles/Vol] 106 mmol/L Normal 98-107 [facility] Comment on above: Performed By: #### P HO, LACTIC, BMP, MG ####[facility] R[address]uy[address]aqxu4105 [place], [place] [address])[phone] Director: Ramiro Mark MD CO2 [Moles/Vol] 21 mmol/L Normal 20-31 [facility] Comment on above: Performed By: #### P HO, LACTIC, BMP, MG ####[facility] Obqbprwlfhwh1235 [place], [place] [address])[phone] Director: Ramiro Mark MD Creatinine [Mass/Vol] 1.6 mg/dL High 0.70-1.[address] [facility] Comment on above: Performed By: #### P HO, LACTIC, BMP, MG ####[facility] Madigzbwhenb1633 [place], [place] [address])[phone] Director: Ramiro Mark MD GFR/1.73 sq M.predicted among non-blacks MDRD (S/P/Bld) [Vol rate/Area] 51 mL/min/{1.73_m2} Low >60 [facility] Comment on above: Result Comment: Thes [...] #### P HO, LACTIC, BMP, MG ####[facility] Wwavltkglnfz1867 [place] [address] Lab Director: Ramiro Mark MD Glucose [Mass/Vol] 135 mg/dL High 74-99 [facility] Comment on above: Performed By: #### P HO, LACTIC, BMP, MG ####[facility] Odozgjggwizy3722 [place], [place] [address])[phone] Director: Ramiro Mark MD Potassium [Moles/Vol] 4.0 mmol/L Normal 3.7-5.[address] [facility] Comment on above: Performed By: #### P HO, LACTIC, BMP, MG ####[facility] Ockirlbknjpr7230 [place], [place] [address])[phone] Director: Ramiro Mark MD Sodium [Moles/Vol] 137 mmol/L Normal 136-145 [facility] Comment on above: Performed By: #### P HO, LACTIC, BMP, MG ####[facility] Chmzmbdvaxhm6422 [place], [place] [address])[phone] Director: Ramiro Mark MD Urea nitrogen [Mass/Vol] 40 mg/dL High 6-20 [facility] Comment on above: Performed By: #### P HO, LACTIC, BMP, MG ####[facility] [address]egun[address] [place] [address])[phone] Director: Ramiro Mark MD CBC with Auto Differentialon 01-20-2024 Basophils (Bld) [#/Vol] 0.04 10*3/uL [facility] Erythrocyte distribution width (RBC) [Ratio] 14.2 % 11.8 - 14.4 % [facility] Hematocrit (Bld) [Volume fraction] 30.7 % Low 40.7 - 50.3 % [facility] Hemoglobin (Bld) [Mass/Vol] 10.1 g/dL Low 13.0 - 17.0 g/dL [facility] Immature granulocytes (Bld) [#/Vol] 0.06 10*3/uL [facility] Interpretation and review of laboratory results Abnormal [facility] Lymphocytes/100 WBC (Bld) 1.10 % [facility] MCH (RBC) [Entitic mass] 29.4 pg 25.2 - 33.5 pg [facility] MCHC (RBC) [Mass/Vol] 32.9 g/dL 28.4 - 34.8 g/dL [facility] MCV (RBC) [Entitic vol] 89.2 fL 82.6 - 102.9 fL [facility] Monocytes/100 WBC (Bld) 0.71 % [facility] Neutrophils/100 WBC (Bld) 82 % High 36 - 65 % [facility] Nucleated RBC/100 WBC (Bld) [Ratio] 0.0 % 0.0 per 100 WBC [facility] Platelet mean volume (Bld) [Entitic vol] 10.3 fL 8.1 - 13.5 fL [facility] Platelets (Bld) [#/Vol] 158 10*3/uL [facility] RBC (Bld) [#/Vol] 3.44 10*6/uL Low 4.21 - 5.7 7 m/uL [facility] Segmented neutrophils/100 WBC (Bld) 9.08 % High [facility] WBC other (Bld) [#/Vol] 11.1 [facility] CBC with Diffon 01-20-2024 Basophils/100 WBC (Bld) 0 % Normal 0-2 [facility] Comment on above: Performed By: #### B MP, CHELO, TRIG, VNCR, CDP, MG ####[employer] Lwnfcicolomw6933 [place] [address] [facility] Director: Ramiro Mark MD Eosinophils (Bld) [#/Vol] 0.10 10*3/uL Normal 0.00-0.44 [facility] Comment on above: Performed By: #### B MP, CHELO, TRIG, VNCR, CDP, MG ####[facility] [address]xmr[address]inkrhdk8[address] [place], [place] [address])[phone] Director: Ramiro Mark MD Eosinophils/100 WBC (Bld) 1 % Normal 1-4 [facility] Comment on above: Performed By: #### B MP, CHELO, TRIG, VNCR, CDP, MG ####[facility] [address]ugajesna8[address] [place], [place] [address])[phone] Director: Ramiro Mark MD Immature granulocytes/100 WBC (Bld) 1 % High 0 [facility] Comment on above: Performed By: #### B MP, CHELO, TRIG, VNCR, CDP, MG ####[facility] Wyurijivqkge7439 [place], [place] [address])[phone] Director: Ramiro Mark MD Lymphocytes/100 WBC (Bld) 10 % Low 24-43 [facility] Comment on above: Performed By: #### B MP, CHELO, TRIG, VNCR, CDP, MG ####[facility] [address] [place] [address])[phone] Director: Ramiro Mark MD Monocytes/100 WBC (Bld) 6 % Normal 3-12 [facility] Comment on above: Performed By: #### B MP, CHELO, TRIG, VNCR, CDP, MG ####[facility] Olxuelpliini3651 [place], [place] [address])[phone] Director: Ramiro Mark MD Abs. Basophil 0.04 k/uL Normal 0.00-0.20 [facility] Comment on above: Performed By: #### B MP, CHELO, TRIG, VNCR, CDP, MG ####[facility] [address]zftbppsqu5241 [place], [place] [address])[phone] Director: Ramiro Mark MD Abs.Imm.Granulocyte 0.06 k/uL Normal 0.00-0.30 [facility] Comment on above: Performed By: #### B MP, CHELO, TRIG, VNCR, CDP, MG ####[facility] Okjrufoovspm6472 [place], [place] [address])[phone] Director: Ramiro Mark MD Abs.Neutrophil (Seg) 9.08 k/uL High 1.50-8.10 [facility] Comment on above: Performed By: #### B MP, CHELO, TRIG, VNCR, CDP, MG ####[facility] Ttjnkdqppewi2745 [place], [place] [id number])[phone] Director: Ramiro Mark MD Lymphocytes (Bld) [#/Vol] 1.10 10*3/uL Normal 1.10-3.70 [facility] Comment on above: Performed By: #### B MP, CHELO, TRIG, VNCR, CDP, MG ####[place] [place], [place] [address])[phone] Director: Ramiro Mark MD Monocytes (Bld) [#/Vol] 0.71 10*3/uL Normal 0.10-1.20 [facility] Comment on above: Performed By: #### B MP, CHELO, TRIG, VNCR, CDP, MG ####[address] [address])[phone] Director: Ramiro Mark MD Neutrophil (Seg) 82 % High 36-65 [facility] Comment on above: Performed By: #### B MP, CHELO, TRIG, VNCR, CDP, MG ####[facility] Cf[address]rubjfsukt[address]146 [place], [place] [address])[phone] Director: Ramiro Mark MD Erythrocyte distribution width (RBC) [Ratio] 14.2 % Normal 11.8-14.4 [facility] Comment on above: Performed By: #### B MP, CHELO, TRIG, VNCR, CDP, MG ####[facility] Ovnqnsaxycrj9456 [place], [place] [address])[phone] Director: Ramiro Mark MD Hematocrit (Bld) [Volume fraction] 30.7 % Low 40.7-50.3 [facility] Comment on above: Performed By: #### B MP, CHELO, TRIG, VNCR, CDP, MG ####[facility] [address] [place] [address] Lab Director: Ramiro Mark MD Hemoglobin (Bld) [Mass/Vol] 10.1 g/dL Low 13.0-17.0 [facility] Comment on above: Performed By: #### B MP, CHELO, TRIG, VNCR, CDP, MG ####[facility] [address] [place] [address] [phone])[phone] Director: Ramiro Mark MD MCH (RBC) [Entitic mass] 29.4 pg Normal 25.2-33.5 [facility] Comment on above: Performed By: #### B MP, CHELO, TRIG, VNCR, CDP, MG ####[address] [address])[phone] Director: Ramiro Mark MD MCHC (RBC) [Mass/Vol] 32.9 g/dL Normal 28.4-34.[address] [facility] Comment on above: Performed By: #### B MP, CHELO, TRIG, VNCR, CDP, MG ####[address] [id number])[phone] Director: Ramiro Mark MD MCV (RBC) [Entitic vol] 89.2 fL Normal 82.6-102.9 [facility] Comment on above: Performed By: #### B MP, CHELO, TRIG, VNCR, CDP, MG ####[address] [address] Lab Director: Ramiro Mark MD NRBC Automated 0.0 per 100 WBC Normal 0.0 [facility] Comment on above: Performed By: #### B MP, CHELO, TRIG, VNCR, CDP, MG ####[address] [address] Lab Director: Ramiro Mark MD Platelet mean volume (Bld) [Entitic vol] 10.3 fL Normal 8.1-13.5 [facility] Comment on above: Performed By: #### B MP, CHELO, TRIG, VNCR, CDP, MG ####[facility] Squggjlajnxn7424 [place], [place] [phone] Director: Ramiro Mark MD Platelets (Bld) [#/Vol] 158 10*3/uL Normal 138-453 [facility] Comment on above: Performed By: #### B MP, CHELO, TRIG, VNCR, CDP, MG ####[facility] [address]vfzqxhd4011 [place], [place] [id number])[phone] Director: Ramiro Mark MD RBC (Bld) [#/Vol] 3.44 10*6/uL Low 4.21-5.77 [facility] Comment on above: Performed By: #### B MP, CHELO, TRIG, VNCR, CDP, MG ####[facility] Uhzmnfikeizy7636 [place], [place] [id number])[phone] Director: Ramiro Mark MD WBC (Bld) [#/Vol] 11.1 10*3/uL Normal 3.5-11.3 [facility] Comment on above: Performed By: #### B MP, CHELO, TRIG, VNCR, CDP, MG ####[facility] [address] [place] [address] [id number])[phone] Director: Ramiro Mark MD Cult,Urineon 01-20-2024 Cult,Urine Specimen Description .URINE,STRAIGHT CATHETER Culture NO GROWTH Report Status FINAL 01/20/2024 Normal [facility] Comment on above: Performed By: #### U RC ####[facility] [address] [place] [address] [id number])[phone] Director: Ramiro Mark MD Culture, Urineon 01-20-2024 Microorganism identified Cx Nom (Unsp spec) NO GROWTH [facility] Specimen Description .URINE,STRAIGHT CATHETER [facility] Cytology, Non-Gynon 01-20-20 [facility] Extubationon 01-20-2024 [facility] ExtubationOrdered By: Linda Lopez on 01-20-2024 [facility] [employer] Glucose (POC)on 01-20-2024 Glucose [Mass/Vol] 185 mg/dL High 74-100 [facility] Glucose,Whole Bloodon 2023 Glucose [Mass/Vol] 206 mg/dL High 75-110 [facility] Glucose [Mass/Vol] 236 mg/dL High 75-110 [facility] Glucose [Mass/Vol] 228 mg/dL High 75-110 [facility] Glucose [Mass/Vol] 147 mg/dL High 75-110 [facility] Glucose [Mass/Vol] 133 mg/dL High 75-110 [facility] Glucose [Mass/Vol] 179 mg/dL High 75-110 [facility] Glucose [Mass/Vol] 205 mg/dL High 75-110 [facility] Glucose [Mass/Vol] 177 mg/dL High 75-110 [facility] Glucose [Mass/Vol] 167 mg/dL High 75-110 [facility] Glucose [Mass/Vol] 187 mg/dL High 75-110 [facility] Glucose [Mass/Vol] 187 mg/dL High 75-110 [facility] Glucose [Mass/Vol] 172 mg/dL High 75-110 [facility] Glucose [Mass/Vol] 156 mg/dL High 75-110 [facility] Glucose [Mass/Vol] 122 mg/dL High 75-110 [facility] Glucose [Mass/Vol] 96 mg/dL Normal 75-110 [facility] Guidance for puncture of Lum bar spineon 01-20-2024 MHPN RIS CONSOLIDATED MHPN RIS CONSOLIDATED [facility] Guidance for puncture of Lum bar spineOrdered By: Felix Dai on 01-20-2024 [facility] Work Phone: IR LUMBAR PUNCTURE FOR DIAGN OSISon 01-20-2024 IR LUMBAR PUNCTURE FOR DIAGNOSIS Normal [facility] Lactic Acidon 01-20-2024 Lactic Acid, Whole Blood 1.7 mmol/L 0.7 - 2.1 mmol/L [facility] Lactic Acid,Whole Bl 1.7 mmol/L Normal 0.7-2.1 [facility] Comment on above: Performed By: #### L ACTIC ####[facility] [address] [place], [place] [phone] lab Director: Ramiro Mark MD Lactic Acid, Whole Blood 1.3 mmol/L 0.7 - 2.1 mmol/L [facility] Lactic Acid,Whole Bl 1.3 mmol/L Normal 0.7-2.1 [facility] Comment on above: Performed By: #### L ACTIC, CHELO, MG, BMP ####[facility] [address] [place], [place] [id number] lab Director: Ramiro Mark MD Lactic Acid, Whole Blood 1.2 mmol/L 0.7 - 2.1 mmol/L [facility] Lactic Acid,Whole Bl 1.2 mmol/L Normal 0.7-2.1 [facility] Comment on above: Performed By: #### P HO, LACTIC, BMP, MG ####[facility] [address] [place], [place] [id number] Lab Director: Ramiro Mark MD Magnesiumon 01-20-2024 Magnesium [Mass/Vol] 1.8 mg/dL 1.6 - 2 .6 mg/dL [facility] Magnesium [Mass/Vol] 1.8 mg/dL Normal 1.6-2.6 [facility] Comment on above: Performed By: #### B MP, CHELO, MG ####[facility] [address] [place], [place] [id number] lab Director: Ramiro Mark MD Magnesium [Mass/Vol] 1.9 mg/dL 1.6 - 2 .6 mg/dL [facility] Magnesium [Mass/Vol] 1.9 mg/dL Normal 1.6-2.6 [facility] Comment on above: Performed By: #### B MP, MG, CHELO ####[facility] [address] [place] [phone] lab Director: Ramiro Mark MD Magnesium [Mass/Vol] 1.9 mg/dL 1.6 - 2 .6 mg/dL [facility] Magnesium [Mass/Vol] 1.9 mg/dL Normal 1.6-2.6 [facility] Comment on above: Performed By: #### L ACTIC, CHELO, MG, BMP ####[facility] [address] [place] [id number] lab Director: Ramiro Mark MD Magnesium [Mass/Vol] 2.0 mg/dL 1.6 - 2 .6 mg/dL [facility] Magnesium [Mass/Vol] 2.0 mg/dL Normal 1.6-2.6 [facility] Comment on above: Performed By: #### B MP, CHELO, TRIG, VNCR, CDP, MG ####[facility] [address] [place] [phone] lab Director: Ramiro Mark MD Magnesium [Mass/Vol] 2.0 mg/dL 1.6 - 2 .6 mg/dL [facility] Magnesium [Mass/Vol] 2.0 mg/dL Normal 1.6-2.6 [facility] Comment on above: Performed By: #### P HO, LACTIC, BMP, MG ####[facility] [address] [place] [phone] lab Director: Ramiro Mark MD No Panel Informationon 01-19 Interpretation and review of laboratory results Abnormal [facility] Interpretation and review of laboratory results Abnormal [facility] Interpretation and review of laboratory results Abnormal [facility] Non-Vocal Performer Cytologyon Case No: [id number] Normal [facility] Comment on above: Performed By: #### N CHROMOSOMAL DISORDERS COUNSELOR ####[facility] [address] [place] [address] [facility] Director: Ramiro Mark MD POC Glucose Fingerstickon Glucose [Mass/Vol] 206 mg/dL High 75 - 110 mg/dL [facility] Interpretation and review of laboratory results Abnormal [facility] Glucose [Mass/Vol] 236 mg/dL High 75 - 110 mg/dL [facility] Interpretation and review of laboratory results Abnormal [facility] Glucose [Mass/Vol] 228 mg/dL High 75 - 110 mg/dL [facility] Interpretation and review of laboratory results Abnormal [facility] Glucose [Mass/Vol] 147 mg/dL High 75 - 110 mg/dL [facility] Interpretation and review of laboratory results Abnormal [facility] Glucose [Mass/Vol] 133 mg/dL High 75 - 110 mg/dL [facility] Interpretation and review of laboratory results Abnormal [facility] Glucose [Mass/Vol] 179 mg/dL High 75 - 110 mg/dL [facility] Interpretation and review of laboratory results Abnormal [facility] Glucose [Mass/Vol] 205 mg/dL High 75 - 110 mg/dL [facility] Interpretation and review of laboratory results Abnormal [facility] Glucose [Mass/Vol] 177 mg/dL High 75 - 110 mg/dL [facility] Interpretation and review of laboratory results Abnormal [facility] Glucose [Mass/Vol] 167 mg/dL High 75 - 110 mg/dL [facility] Interpretation and review of laboratory results Abnormal [facility] Glucose [Mass/Vol] 187 mg/dL High 75 - 110 mg/dL [facility] Interpretation and review of laboratory results Abnormal [facility] Glucose [Mass/Vol] 187 mg/dL High 75 - 110 mg/dL [facility] Interpretation and review of laboratory results Abnormal [facility] Glucose [Mass/Vol] 172 mg/dL High 75 - 110 mg/dL [facility] Interpretation and review of laboratory results Abnormal [facility] Glucose [Mass/Vol] 156 mg/dL High 75 - 110 mg/dL [facility] Interpretation and review of laboratory results Abnormal [facility] Glucose [Mass/Vol] 122 mg/dL High 75 - 110 mg/dL [facility] Interpretation and review of laboratory results Abnormal [facility] Glucose [Mass/Vol] 96 mg/dL 75 - 110 mg/dL [facility] POCT Glucoseon 01-20-2024 Glucose [Mass/Vol] 185 mg/dL High 74 - 100 mg/dL [facility] Phosphoruson 01-20-2024 Phosphate [Mass/Vol] 1.9 mg/dL Low 2.5 - 4 .5 mg/dL [facility] Phosphate [Mass/Vol] 2.4 mg/dL Low 2.5 - 4 .5 mg/dL [facility] Phosphate [Mass/Vol] 3.3 mg/dL 2.5 - 4 .5 mg/dL [facility] Phosphate [Mass/Vol] 3.9 mg/dL 2.5 - 4 .5 mg/dL [facility] Phosphate [Mass/Vol] 3.9 mg/dL 2.5 - 4 .5 mg/dL [facility] Phosphorus, Inorg.on 024 Phosphorus, Inorg. 1.9 mg/dL Low 2.5-4.5 [facility] Comment on above: Performed By: #### B MP, CHELO, MG ####[facility] [place] [address] Lab Director: Ramiro Mark MD Phosphorus, Inorg. 2.4 mg/dL Low 2.5-4.5 [facility] Comment on above: Performed By: #### B MP, MG, CHELO ####[facility] [address] [place] [address] Lab Director: Ramiro Mark MD Phosphorus, Inorg. 3.3 mg/dL Normal 2.5-4.5 [facility] Comment on above: Performed By: #### L ACTIC, CHELO, MG, BMP ####[facility] [address] [place] [address] Lab Director: Ramiro Mark MD Phosphorus, Inorg. 3.9 mg/dL Normal 2.5-4.5 [facility] Comment on above: Performed By: #### B MP, CHELO, TRIG, VNCR, CDP, MG ####[facility] [address] [place] [address] Lab Director: Ramiro Mark MD Phosphorus, Inorg. 3.9 mg/dL Normal 2.5-4.5 [facility] Comment on above: Performed By: #### P HO, LACTIC, BMP, MG ####[facility] [address] [place] [address] Lab Director: Ramiro Mark MD SURGICAL PATHOLOGY REPORTon 01-20-2024 Surgical Pathology Report [facility] Triglycerideon 01-20-2024 Triglyceride [Mass/Vol] 62 mg/dL NINF - 150 mg/dL [facility] Triglycerideson 01-20-2024 Triglyceride [Mass/Vol] 62 mg/dL Normal <150 [facility] Comment on above: Result Comment: Trig lyceride Guidelines: <150 Desirable 150- 199 Borderline 200-499 High >499 Very high Based on AHA Guidelines for fasting triglyceride, July 2012. Performed By: #### B MP, CHELO, TRIG, VNCR, CDP, MG ####[facility] [address] [place] [address] [id number] Lab Director: Ramiro Mark MD VDRL CSFon 01-20-2024 Reagin Ab VDRL Ql (CSF) Non-Reactive NONREACTIVE [facility] VDRL, Qual, CSFon 01-20-2024 VDRL, Qual, CSF Non-Reactive Normal NR [facility] Comment on above: Performed By: #### C FCNT, MEVP, CFVD, CGLU, CTP ####[address] [phone] Lab Director: Ramiro Mark MD#### ABHINAVCT, AWNCSF ####[facility] [address] [place] [address] Lab Director: Wil Swanson MD Vancomycin Level, Randomon 0 01-20-2024 Vancomycin [Mass/Vol] 18.9 ug/mL 5.0 - 40.0 ug/mL [facility] Vancomycin,Randomon 01-20-20 24 Vancomycin 18.9 ug/mL Normal 5.0-40.0 [facility] Comment on above: Result Comment: High er trough serum vancomycin concentrations of 15-20 ug/mL are recommended for complicated infections such as bacteremia, endocarditis, osteomyelitis, meningitis, and hospital acquired pneumonia. Performed By: #### B MP, CHELO, TRIG, VNCR, CDP, MG ####[address] [address] Lab Director: Ramiro Mark MD APTTon 01-19-2024 aPTT Coag (Bld) [Time] 23.4 s [facility] aPTT Coag (Bld) [Time] 23.4 s Normal 23.0-36.5 [facility] Comment on above: Result Comment: IV H eparin Therapy Range:66.0-92.0 sec Performed By: #### B MP, PRCAL, PT, MG, CHELO, PTT ####[facility] [address] [place] [address] lab Director: Ramiro Mark MD Ammoniaon 01-19-2024 Ammonia (P) [Moles/Vol] 32 umol/L 16 - 60 umol/L [facility] Ammonia (P) [Moles/Vol] 32 umol/L Normal 16-60 [facility] Comment on above: Result Comment: Spec imen lipemia has exceeded the interference as defined by Jaime. Results may be affected. Performed By: #### A MON, TSHX ####[facility] [address] [place] [address] lab Director: Ramiro Mark MD Arterial Bld Gas,POCon 01-18 Jody Test Positive Normal [facility] FIO2 30.0 Normal [facility] HCO3 (Bld) [Moles/Vol] 23.9 mmol/L Normal 21.0-28.0 [facility] Mode of Delivery PRVC Normal [facility] Negative Base Excess (calc) 0.9 mmol/L Normal 0.0-2.0 [facility] Oxygen saturation in Blood 98.8 % High 94.0-98.0 [facility] pCO2, Arterial 38.9 mm Hg Normal 35.0-48.0 [facility] pH, Arterial 7.395 Normal 7.350-7.450 [facility] pO2, Arterial 124.3 mm Hg High 83.0-108.0 [facility] Site Drawn Right Radial Artery Normal [facility] Jdoy Test Positive Normal [facility] FIO2 28.0 Normal [facility] HCO3 (Bld) [Moles/Vol] 24.1 mmol/L Normal 21.0-28.0 [facility] O2 Device Cannula Normal [facility] Oxygen saturation in Blood 95.5 % Normal 94.0-98.0 [facility] pCO2, Arterial 35.5 mm Hg Normal 35.0-48.0 [facility] pH, Arterial 7.439 Normal 7.350-7.450 [facility] pO2, Arterial 74.9 mm Hg Low 83.0-108.0 [facility] Positive Base Excess (calc) 0.2 mmol/L Normal 0.0-3.0 [facility] Site Drawn Right Radial Artery Normal [facility] Arterial Blood Gas, POCon Jody Test Positive [facility] FIO2 30.0 [facility] HCO3 (Bld) [Moles/Vol] 23.9 mmol/L 21.0 - 28.0 mmol/L [facility] [employer] Mode PRVC [facility] Negative Base Excess, Art 0.9 mmol/L 0.0 - 2.0 mmol/L [facility] Oxygen saturation in Blood 98.8 % High 94.0 - 98.0 % [facility] POC pCO2 38.9 [facility] POC pH 7.395 7.350 - 7.450 [facility] POC PO2 124.3 High [facility] Sample Site Right Radial Artery [facility] Jody Test Positive [facility] FIO2 28.0 [facility] HCO3 (Bld) [Moles/Vol] 24.1 mmol/L 21.0 - 28.0 mmol/L [facility] Interpretation and review of laboratory results Abnormal [facility] O2 Delivery Device Cannula [facility] Oxygen saturation in Blood 95.5 % 94.0 - 98.0 % [facility] POC pCO2 35.5 [facility] POC pH 7.439 7.350 - 7.450 [facility] POC PO2 74.9 Low [facility] Positive Base Excess, Art 0.2 mmol/L 0.0 - 3.0 mmol/L [facility] Sample Site Right Radial Artery [facility] [employer] Basic Metab w/rfx MGon 01-18 Anion gap [Moles/Vol] 22 mmol/L High 9-[address] [facility] Comment on above: Performed By: #### C DP, CK, MARCIO, TROPI, BMPX, GLYHGB, BH, SED, ALCB, CRP ####[facility] [address] [place] [address] Lab Director: Ramiro Mark MD Calcium [Mass/Vol] 9.0 mg/dL Normal 8.6-10.4 [facility] Comment on above: Performed By: #### C DP, CK, MARCIO, TROPI, BMPX, GLYHGB, BH, SED, ALCB, CRP ####[facility] [address] [place] [address])[phone] Director: Ramiro Mark MD Chloride [Moles/Vol] 94 mmol/L Low 98-107 [facility] Comment on above: Performed By: #### C DP, CK, MARCIO, TROPI, BMPX, GLYHGB, BH, SED, ALCB, CRP ####[facility] [address] [place] [address] Lab Director: Ramiro Mark MD CO2 [Moles/Vol] 15 mmol/L Low 20-31 [facility] Comment on above: Performed By: #### C DP, CK, MARCIO, TROPI, BMPX, GLYHGB, BH, SED, ALCB, CRP ####[address] [address] Lab Director: Ramiro Mark MD Creatinine [Mass/Vol] 1.7 mg/dL High 0.70-1.[address] [facility] Comment on above: Performed By: #### C DP, CK, MARCIO, TROPI, BMPX, GLYHGB, BH, SED, ALCB, CRP ####[facility] [address] [place] [address] Lab Director: Ramiro Mark MD GFR/1.73 sq M.predicted among non-blacks MDRD (S/P/Bld) [Vol rate/Area] 48 mL/min/{1.73_m2} Low >60 [facility] Comment on above: Result Comment: Thes [...] TROPI, BMPX, GLYHGB, BH, SED, ALCB, CRP ####[place] [address] Lab Director: Ramiro Mark MD Glucose [Mass/Vol] 530 mg/dL Critically high 74-99 [facility] Comment on above: Performed By: #### C DP, CK, MARCIO, TROPI, BMPX, GLYHGB, BH, SED, ALCB, CRP ####[place] [address] Lab Director: Ramiro Mark MD Potassium [Moles/Vol] 5.6 mmol/L High 3.7-5.[address] [facility] Comment on above: Performed By: #### C DP, CK, MARCIO, TROPI, BMPX, GLYHGB, BH, SED, ALCB, CRP ####[place] [address] Lab Director: Ramiro Mark MD Sodium [Moles/Vol] 131 mmol/L Low 136-145 [facility] Comment on above: Performed By: #### C DP, CK, MARCIO, TROPI, BMPX, GLYHGB, BH, SED, ALCB, CRP ####[place] [address] Lab Director: Ramiro Mark MD Urea nitrogen [Mass/Vol] 47 mg/dL High 6-20 [facility] Comment on above: Performed By: #### C DP, CK, MARCIO, TROPI, BMPX, GLYHGB, BH, SED, ALCB, CRP ####[facility] [address] [place] [address] [facility] Director: Ramiro Mark MD Basic Metabolic Panelon -0 Anion gap [Moles/Vol] 12 mmol/L 9 - 16 mmol/L [facility] [employer] Calcium [Mass/Vol] 8.2 mg/dL Low 8.6 - 10. 4 mg/dL [facility] Chloride [Moles/Vol] 105 mmol/L 98 - 10 7 mmol/L [facility] CO2 [Moles/Vol] 20 mmol/L 20 - 31 mmol/L [facility] [employer] Creatinine [Mass/Vol] 1.5 mg/dL High 0.70 - 1.20 mg/dL [facility] GFR/1.73 sq M.predicted MDRD (S/P/Bld) [Vol rate/Area] 55 mL/min/{1.73_m2} Low - PINF [facility] [employer] Glucose [Mass/Vol] 257 mg/dL High 74 - 99 mg/dL [facility] Interpretation and review of laboratory results Abnormal [facility] [employer] Potassium [Moles/Vol] 3.8 mmol/L 3.7 - 5.3 mmol/L [facility] Sodium [Moles/Vol] 137 mmol/L 136 - 145 mmol/L [facility] [employer] Urea nitrogen [Mass/Vol] 41 mg/dL High 6 - 20 mg/dL [facility] Anion gap [Moles/Vol] 10 mmol/L 9 - 16 mmol/L [facility] [employer] Calcium [Mass/Vol] 8.2 mg/dL Low 8.6 - 10. 4 mg/dL [facility] [employer] Chloride [Moles/Vol] 105 mmol/L 98 - 10 7 mmol/L [facility] [employer] CO2 [Moles/Vol] 22 mmol/L 20 - 31 mmol/L [facility] [employer] Creatinine [Mass/Vol] 1.6 mg/dL High 0.70 - 1.20 mg/dL [facility] [employer] GFR/1.73 sq M.predicted MDRD (S/P/Bld) [Vol rate/Area] 51 mL/min/{1.73_m2} Low - PINF [facility] Glucose [Mass/Vol] 208 mg/dL High 74 - 99 mg/dL [facility] Interpretation and review of laboratory results Abnormal [facility] Potassium [Moles/Vol] 4.4 mmol/L 3.7 - 5.3 mmol/L [facility] Sodium [Moles/Vol] 137 mmol/L 136 - 145 mmol/L [facility] Urea nitrogen [Mass/Vol] 42 mg/dL High 6 - 20 mg/dL [facility] Basic Metabolic Panel w/ Ref jose to MGon 01-19-2024 Anion gap [Moles/Vol] 22 mmol/L High 9 - 16 mmol/L [facility] Calcium [Mass/Vol] 9.0 mg/dL 8.6 - 10. 4 mg/dL [facility] Chloride [Moles/Vol] 94 mmol/L Low 98 - 10 7 mmol/L [facility] CO2 [Moles/Vol] 15 mmol/L Low 20 - 31 mmol/L [facility] Creatinine [Mass/Vol] 1.7 mg/dL High 0.70 - 1.20 mg/dL [facility] [employer] GFR/1.73 sq M.predicted MDRD (S/P/Bld) [Vol rate/Area] 48 mL/min/{1.73_m2} Low - PINF [facility] Glucose [Mass/Vol] 530 mg/dL Critically high 74 - 9 9 mg/dL [facility] Interpretation and review of laboratory results Abnormal [facility] Potassium [Moles/Vol] 5.6 mmol/L High 3.7 - 5.3 mmol/L [facility] Sodium [Moles/Vol] 131 mmol/L Low 136 - 145 mmol/L [facility] Urea nitrogen [Mass/Vol] 47 mg/dL High 6 - 20 mg/dL [facility] [employer] Basic Metabolic Profon 01-18 Anion gap [Moles/Vol] 12 mmol/L Normal 9-16 [facility] Comment on above: Performed By: #### B MP, CHELO, MG ####[facility] [address] [place] [address] Lab Director: Ramiro Mark MD Calcium [Mass/Vol] 8.2 mg/dL Low 8.6-10.4 [facility] Comment on above: Performed By: #### B MP, CHELO, MG ####[facility] [address] [place], [place] [address])[phone] Director: Ramiro Mark MD Chloride [Moles/Vol] 105 mmol/L Normal 98-107 [facility] Comment on above: Performed By: #### B MP, CHELO, MG ####[facility] [address] [place], [place] [address])[phone] Director: Ramiro Mark MD CO2 [Moles/Vol] 20 mmol/L Normal 20-31 [facility] Comment on above: Performed By: #### B MP, CHELO, MG ####[facility] [address] [place], [place] [phone] Director: Ramiro Mark MD Creatinine [Mass/Vol] 1.5 mg/dL High 0.70-1.[address] [facility] Comment on above: Performed By: #### B MP, CHELO, MG ####[address] [address])[phone] Director: Ramiro Mark MD GFR/1.73 sq M.predicted among non-blacks MDRD (S/P/Bld) [Vol rate/Area] 55 mL/min/{1.73_m2} Low >60 [facility] Comment on above: Result Comment: Thes [...] By: #### B MP, CHELO, MG ####[facility] [address] [place], [place] [address])[phone] Director: Ramiro Mark MD Glucose [Mass/Vol] 257 mg/dL High 74-99 [facility] Comment on above: Performed By: #### B MP, CHELO, MG ####[facility] [address] [place], [place] [address])[phone] Director: Ramiro Mark MD Potassium [Moles/Vol] 3.8 mmol/L Normal 3.7-5.3 [facility] Comment on above: Performed By: #### B MP, CHELO, MG ####[facility] [address] [place], [place] [address])[phone] Director: Ramiro Mark MD Sodium [Moles/Vol] 137 mmol/L Normal 136-145 [facility] Comment on above: Performed By: #### B MP, CHELO, MG ####[facility] [address] [place], [place] [address])[phone] Director: Ramiro Mark MD Urea nitrogen [Mass/Vol] 41 mg/dL High 6-20 [facility] Comment on above: Performed By: #### B MP, CHELO, MG ####[facility] [address] [place], [place] [address])[phone] Director: Ramiro Mark MD Anion gap [Moles/Vol] 10 mmol/L Normal 9-16 [facility] Comment on above: Performed By: #### B MP, PRCAL, PT, MG, CHELO, PTT ####[facility] [address] [place], [place] [address])[phone] Director: Ramiro Mark MD Calcium [Mass/Vol] 8.2 mg/dL Low 8.6-10.4 [facility] Comment on above: Performed By: #### B MP, PRCAL, PT, MG, CHELO, PTT ####[facility] [address] [place] [address] Lab Director: Ramiro Mark MD Chloride [Moles/Vol] 105 mmol/L Normal 98-107 [facility] Comment on above: Performed By: #### B MP, PRCAL, PT, MG, CHELO, PTT ####[facility] [address] [place] [address] Lab Director: Ramiro Mark MD CO2 [Moles/Vol] 22 mmol/L Normal 20-31 [facility] Comment on above: Performed By: #### B MP, PRCAL, PT, MG, CHELO, PTT ####[address] [address])[phone] Director: Ramiro Mark MD Creatinine [Mass/Vol] 1.6 mg/dL High 0.70-1.[address] [facility] Comment on above: Performed By: #### B MP, PRCAL, PT, MG, CHELO, PTT ####[address] [address])[phone] Director: Ramiro Mark MD GFR/1.73 sq M.predicted among non-blacks MDRD (S/P/Bld) [Vol rate/Area] 51 mL/min/{1.73_m2} Low >60 [facility] Comment on above: Result Comment: Thes [...] B MP, PRCAL, PT, MG, CHELO, PTT ####[facility] [address] [place] [address] Lab Director: Ramiro Mark MD Glucose [Mass/Vol] 208 mg/dL High 74-99 [facility] Comment on above: Performed By: #### B MP, PRCAL, PT, MG, CHELO, PTT ####[facility] [id number] [place] [address] Lab Director: Ramiro Mark MD Potassium [Moles/Vol] 4.4 mmol/L Normal 3.7-5.[address] [facility] Comment on above: Result Comment: SPEC IMEN SLIGHTLY HEMOLYZED, RESULTS MAY BE ADVERSELY AFFECTED. Performed By: #### B MP, PRCAL, PT, MG, CHELO, PTT ####[facility] [facility] [address] [place] [address])[phone] Director: Ramiro Mark MD Sodium [Moles/Vol] 137 mmol/L Normal 136-145 [facility] Comment on above: Performed By: #### B MP, PRCAL, PT, MG, CHELO, PTT ####[facility] [address] [place] [address] Lab Director: Ramiro Mark MD Urea nitrogen [Mass/Vol] 42 mg/dL High 6-20 [facility] Comment on above: Performed By: #### B MP, PRCAL, PT, MG, CHELO, PTT ####[facility] [address]sp[address]85 [place] [address] Lab Director: Ramiro Mark MD Beta Hydroxybutyrateon 01-18 Beta Hydroxybutyrate 3.37 mmol/L High 0.02-0.[address] [facility] Comment on above: Performed By: #### C DP, CK, MARCIO, TROPI, BMPX, GLYHGB, BH, SED, ALCB, CRP ####[facility] [address] [place] [address] Lab Director: Ramiro Mark MD Beta-Hydroxybutyrateon 01-18 Beta hydroxybutyrate [Mass/Vol] 3.37 mmol/L High 0.02 - 0.27 mmol/L [facility] C-Reactive Proteinon 024 CRP High sensitivity method [Mass/Vol] 3.7 mg/L 0.0 - 5.0 mg/L [facility] CRP [Mass/Vol] 3.7 mg/L Normal 0.0-5.0 [facility] Comment on above: Performed By: #### C DP, CK, MARCIO, TROPI, BMPX, GLYHGB, BH, SED, ALCB, CRP ####[facility] [address] [place] [address] lab Director: Ramiro Mark MD CBC with Auto Differentialon 01-19-2024 Basophils (Bld) [#/Vol] 0.08 10*3/uL [facility] Basophils/100 WBC (Bld) 1 % 0 - 2 % [facility] Eosinophils (Bld) [#/Vol] 0.03 10*3/uL [facility] Eosinophils/100 WBC (Bld) 0 % Low 1 - 4 % [facility] Erythrocyte distribution width (RBC) [Ratio] 13.6 % 11.8 - 14.4 % [facility] Hematocrit (Bld) [Volume fraction] 37.2 % Low 40.7 - 50.3 % [facility] Hemoglobin (Bld) [Mass/Vol] 12.9 g/dL Low 13.0 - 17.0 g/dL [facility] Immature granulocytes (Bld) [#/Vol] 0.07 10*3/uL [facility] Immature granulocytes/100 WBC (Bld) 1 % High 0 [facility] Interpretation and review of laboratory results Abnormal [facility] Lymphocytes/100 WBC (Bld) 6 % Low 24 - 43 % [facility] Lymphocytes/100 WBC (Bld) 0.77 % Low [facility] MCH (RBC) [Entitic mass] 29.3 pg 25.2 - 33.5 pg [facility] MCHC (RBC) [Mass/Vol] 34.7 g/dL 28.4 - 34.8 g/dL [facility] MCV (RBC) [Entitic vol] 84.4 fL 82.6 - 102.9 fL [facility] Monocytes/100 WBC (Bld) 1 % Low 3 - 12 % [facility] Monocytes/100 WBC (Bld) 0.18 % [facility] Neutrophils/100 WBC (Bld) 91 % High 36 - 65 % [facility] Nucleated RBC/100 WBC (Bld) [Ratio] 0.0 % 0.0 per 100 WBC [facility] Platelet mean volume (Bld) [Entitic vol] 10.9 fL 8.1 - 13.5 fL [facility] Platelets (Bld) [#/Vol] 201 10*3/uL [facility] RBC (Bld) [#/Vol] 4.41 10*6/uL 4.21 - 5.7 7 m/uL [facility] Segmented neutrophils/100 WBC (Bld) 12.03 % High [facility] WBC other (Bld) [#/Vol] 13.2 High [facility] CBC with Diffon 01-19-2024 Abs. Basophil 0.08 k/uL Normal 0.00-0.20 [facility] Comment on above: Performed By: #### C DP, CK, MARCIO, TROPI, BMPX, GLYHGB, BH, SED, ALCB, CRP ####[facility] [address] [place] [address] Lab Director: Ramiro Mark MD Abs.Imm.Granulocyte 0.07 k/uL Normal 0.00-0.30 [facility] Comment on above: Performed By: #### C DP, CK, MARCIO, TROPI, BMPX, GLYHGB, BH, SED, ALCB, CRP ####[facility] [address] [place] [address] Lab Director: Ramiro Mark MD Abs.Neutrophil (Seg) 12.03 k/uL High 1.50-8.10 [facility] Comment on above: Performed By: #### C DP, CK, MARCIO, TROPI, BMPX, GLYHGB, BH, SED, ALCB, CRP ####[place] [address] Lab Director: Ramiro Mark MD Basophils/100 WBC (Bld) 1 % Normal 0-2 [facility] Comment on above: Performed By: #### C DP, CK, MARCIO, TROPI, BMPX, GLYHGB, BH, SED, ALCB, CRP ####[place] [address] Lab Director: Ramiro Mark MD Eosinophils (Bld) [#/Vol] 0.03 10*3/uL Normal 0.00-0.44 [facility] Comment on above: Performed By: #### C DP, CK, MARCIO, TROPI, BMPX, GLYHGB, BH, SED, ALCB, CRP ####[place], [place] [address])[phone] Director: Ramiro Mark MD Eosinophils/100 WBC (Bld) 0 % Low 1-4 [facility] Comment on above: Performed By: #### C DP, CK, MARCIO, TROPI, BMPX, GLYHGB, BH, SED, ALCB, CRP ####[place] [address] Lab Director: Ramiro Mark MD Erythrocyte distribution width (RBC) [Ratio] 13.6 % Normal 11.8-14.4 [facility] Comment on above: Performed By: #### C DP, CK, MARCIO, TROPI, BMPX, GLYHGB, BH, SED, ALCB, CRP ####[place], [place] [address])[phone] Director: Ramiro Mark MD Hematocrit (Bld) [Volume fraction] 37.2 % Low 40.7-50.3 [facility] Comment on above: Performed By: #### C DP, CK, MARCIO, TROPI, BMPX, GLYHGB, BH, SED, ALCB, CRP ####[place], [place] [address])[phone] Director: Ramiro Mark MD Hemoglobin (Bld) [Mass/Vol] 12.9 g/dL Low 13.0-17.0 [facility] Comment on above: Performed By: #### C DP, CK, MARCIO, TROPI, BMPX, GLYHGB, BH, SED, ALCB, CRP ####[place], [place] [address])[phone] Director: Ramiro Mark MD Immature granulocytes/100 WBC (Bld) 1 % High 0 [facility] Comment on above: Performed By: #### C DP, CK, MARCIO, TROPI, BMPX, GLYHGB, BH, SED, ALCB, CRP ####[place], [place] [address])[phone] Director: Ramiro Mark MD Lymphocytes (Bld) [#/Vol] 0.77 10*3/uL Low 1.10-3.70 [facility] Comment on above: Performed By: #### C DP, CK, MARCIO, TROPI, BMPX, GLYHGB, BH, SED, ALCB, CRP ####[place], [place] [address])[phone] Director: Ramiro Mark MD Lymphocytes/100 WBC (Bld) 6 % Low 24-43 [facility] Comment on above: Performed By: #### C DP, CK, MARCIO, TROPI, BMPX, GLYHGB, BH, SED, ALCB, CRP ####[place] [place], [place] [address])[phone] Director: Ramiro Mark MD MCH (RBC) [Entitic mass] 29.3 pg Normal 25.2-33.5 [facility] Comment on above: Performed By: #### C DP, CK, MARCIO, TROPI, BMPX, GLYHGB, BH, SED, ALCB, CRP ####[facility] [address] [place] [address] Lab Director: Ramiro Mark MD MCHC (RBC) [Mass/Vol] 34.7 g/dL Normal 28.4-34.[address] [facility] Comment on above: Performed By: #### C DP, CK, AMRCIO, TROPI, BMPX, GLYHGB, BH, SED, ALCB, CRP ####[facility] [address] [place], [place] [address])[phone] Director: Ramiro Mark MD MCV (RBC) [Entitic vol] 84.4 fL Normal 82.6-102.9 [facility] Comment on above: Performed By: #### C DP, CK, MARCIO, TROPI, BMPX, GLYHGB, BH, SED, ALCB, CRP ####[place], [place] [address])[phone] Director: Ramiro Mark MD Monocytes (Bld) [#/Vol] 0.18 10*3/uL Normal 0.10-1.20 [facility] Comment on above: Performed By: #### C DP, CK, MARCIO, TROPI, BMPX, GLYHGB, BH, SED, ALCB, CRP ####[address] [place], [place] [address])[phone] Director: Ramiro Mark MD Monocytes/100 WBC (Bld) 1 % Low 3-12 [facility] Comment on above: Performed By: #### C DP, CK, MARCIO, TROPI, BMPX, GLYHGB, BH, SED, ALCB, CRP ####[facility] [address] [place], [place] [address])[phone] Director: Ramiro Mark MD Neutrophil (Seg) 91 % High 36-65 [facility] Comment on above: Performed By: #### C DP, CK, MARCIO, TROPI, BMPX, GLYHGB, BH, SED, ALCB, CRP ####[place], [place] [address])[phone] Director: Ramiro Mark MD NRBC Automated 0.0 per 100 WBC Normal 0.0 [facility] Comment on above: Performed By: #### C DP, CK, MARCIO, TROPI, BMPX, GLYHGB, BH, SED, ALCB, CRP ####[place], [place] [address])[phone] Director: Ramiro Mark MD Platelet mean volume (Bld) [Entitic vol] 10.9 fL Normal 8.1-13.5 [facility] Comment on above: Performed By: #### C DP, CK, MARCIO, TROPI, BMPX, GLYHGB, BH, SED, ALCB, CRP ####[place], [place] [address])[phone] Director: Ramiro Mark MD Platelets (Bld) [#/Vol] 201 10*3/uL Normal 138-453 [facility] Comment on above: Performed By: #### C DP, CK, MARCIO, TROPI, BMPX, GLYHGB, BH, SED, ALCB, CRP ####[place], [place] [address])[phone] Director: Ramiro Mark MD RBC (Bld) [#/Vol] 4.41 10*6/uL Normal 4.21-5.77 [facility] Comment on above: Performed By: #### C DP, CK, MARCIO, TROPI, BMPX, GLYHGB, BH, SED, ALCB, CRP ####[place], [place] [address])[phone] Director: Ramiro Mark MD WBC (Bld) [#/Vol] 13.2 10*3/uL High 3.5-11.3 [facility] Comment on above: Performed By: #### C DP, CK, MARCIO, TROPI, BMPX, GLYHGB, BH, SED, ALCB, CRP ####[facility] [address] [place] [address] Lab Director: Ramiro Mark MD CKon 01-19-2024 CK [Catalytic activity/Vol] 226 U/L 39 - 308 U/L [facility] CSF Cell Counton 01-19-2024 Appearance (U) Clear Normal [facility] Comment on above: Performed By: #### C FCNT, MEVP, CFVD, CGLU, CTP ####[facility] [address] [place] [address] Lab Director: Ramiro Mark MD#### [place] ####[facility] [address] [place] [address] Lab Director: Wil Swanson MD RBC (Bld) [#/Vol] 0 10*6/uL Normal 0 [facility] Comment on above: Performed By: #### C FCNT, MEVP, CFVD, CGLU, CTP ####[facility] [address] [place] [address] Lab Director: Ramiro Mark MD#### [place] ####[facility] [address] [place] [address] Lab Director: Wil Swanson MD Tube Number 3 Normal [facility] Comment on above: Performed By: #### C FCNT, MEVP, CFVD, CGLU, CTP ####[facility] [address] [place] [address] Lab Director: Ramiro Mark MD#### [place] ####[facility] [address] [place] [address] Lab Director: Wil Swanson MD WBC (Bld) [#/Vol] 0 10*3/uL Normal <5 [facility] Comment on above: Performed By: #### C FCNT, MEVP, CFVD, CGLU, CTP ####[facility] [address] [place], [place] [id number] Lab Director: Ramiro Mark MD#### DESHAUN, AWNCSF ####[facility] [address] [place] [address] Lab Director: Wil Swanson MD Xanthochromia ABSENT Normal [facility] Comment on above: Performed By: #### C FCNT, MEVP, CFVD, CGLU, CTP ####[facility] [address] [place] [address] [id number] Lab Director: Ramiro Mark MD#### DESHAUN, AWNCSF ####[facility] [address] [place] [id number] lab Director: Wil Swanson MD Volume 12 mL Normal [facility] Comment on above: Performed By: #### C FCNT, MEVP, CFVD, CGLU, CTP ####[facility] [address] [place] [address] [id number] Lab Director: Ramiro Mark MD#### DESHAUN, AWNCSF ####[facility] [address] [place] [address] lab Director: Wil Swanson MD CT HEAD [...] Ashley Cintron MD 01/19/24 Final result Normal [facility] Calcium, Ionicon 01-19-2024 Calcium [Moles/Vol] 1.13 mmol/L Normal 1.13-1.33 [facility] Comment on above: Performed By: #### I OCAL ####[facility] [address] [place] [address] lab Director: Ramiro Mark MD Calcium, Ionizedon Calcium.ionized (Bld) [Moles/Vol] 1.13 mmol/L 1.13 - 1.33 mmol/L [facility] Cell Count with Differential , CSFon 01-19-2024 Appearance (CSF) Clear [facility] Nucleated cells Manual cnt (Body fld) [#/Vol] 0 NINF [facility] RBC Manual cnt (Body fld) [#/Vol] 0 0 cells/uL [facility] Specimen volume (CSF) 12 mL [facility] Tube number Nom (CSF) [ID] 3 [facility] Xanthochromia Ql (CSF) ABSENT TRIP N [facility] Creatine Kinaseon 01-19-2024 CK [Catalytic activity/Vol] 226 U/L Normal 39-308 [facility] Comment on above: Performed By: #### C DP, CK, MARCIO, TROPI, BMPX, GLYHGB, BH, SED, ALCB, CRP ####[facility] Hospital[facility] [address]lecuaihc[address] [place], [place] [id number] Lab Director: Ramiro Mark MD DRUG SCREEN MULTI URINEon Amphetamines Ql (U) Negative NEGATIVE [facility] Barbiturates Screen Ql (U) Negative NEGATIVE [facility] Benzodiazepines Ql (U) Negative NEGATIVE [facility] Cannabinoids Screen Ql (U) Negative NEGATIVE [facility] Cocaine Ql (U) Negative NEGATIVE [facility] fentaNYL Ql (U) Negative NEGATIVE [facility] Methadone Ql (U) Negative NEGATIVE [facility] Opiates Screen Ql (U) Negative NEGATIVE [facility] oxyCODONE Ql (U) Negative NEGATIVE [facility] Phencyclidine Ql (U) Negative NEGATIVE [facility] Test Information Assay provides rapid clinical screening only. Presumptive positive results for legal purposes should be confirmed by another method. To request confirmation, please call the lab within 7 days of sample submission. [facility] Drug Scr, Abuse, Uron 2023 Amphetamine(s),Ur Negative Normal NEG [facility] Comment on above: Result Comment: Cuto ff: 1000 ng/mL Performed By: #### D AU ####[facility] HospitalSocialVoltHtlaphioauix1293 [place], [place] [id number] Lab Director: Ramiro Mark MD Barbiturate(s),Ur Negative Normal NEG [facility] Comment on above: Result Comment: Cuto ff: 200 ng/ml Performed By: #### D AU ####[facility] HospitalSocialVoltSegudkktkuoy0903 [place], [place] [id number] Lab Director: Ramiro Mark MD Benzodiazepine(s) Negative Normal NEG [facility] Comment on above: Result Comment: Cuto ff: 200 ng/ml Performed By: #### D AU ####[address] [phone] Director: Ramiro Mark MD Cannabinoid(s),Ur Negative Normal NEG [facility] Comment on above: Result Comment: Cuto ff: 50 ng/ml Performed By: #### D AU ####[address] [phone] Director: Ramiro Mark MD Cocaine Metabolite Negative Normal NEG [facility] Comment on above: Result Comment: Cuto ff: 300 ng/ml Performed By: #### D AU ####[address] [phone] Director: Ramiro Mark MD Fentanyl, Urine Negative Normal NEG [facility] Comment on above: Result Comment: Cuto ff: 5 ng/ml Performed By: #### D AU ####[address] [address] Lab Director: Ramiro Mark MD Interpretive Info Assay provides rapid clinical screening only. Presumptive positive results for Normal [facility] Comment on above: Result Comment: lega l purposes should be confirmed by another method. To request confirmation, please call the lab within 7 days of sample submission. Performed By: #### D AU ####[address] [phone] Director: Ramiro Mark MD Methadone Ql (U) Negative Normal NEG [facility] Comment on above: Result Comment: Cuto ff: 300 ng/ml Performed By: #### D AU ####[address] [phone] Director: Ramiro Mark MD Opiate(s), Ur Negative Normal NEG [facility] Comment on above: Result Comment: Cuto ff: 300 ng/ml Performed By: #### D AU ####[facility] [address] [place] [address] Lab Director: Ramiro Mark MD Oxycodone, Urine Negative Normal NEG [facility] Comment on above: Result Comment: Cuto ff: 100 ng/ml Performed By: #### D AU ####[address] [place] [address] Lab Director: Ramiro Mark MD Phencyclidine, Ur Negative Normal NEG [facility] Comment on above: Result Comment: Cuto ff: 25 ng/ml Performed By: #### D AU ####[address] [address] lab Director: Ramiro Mark MD Ethanolon 01-19-2024 Ethanol percent <0.010 NINF - 0.010 % [facility] Ethanolamine [Mass/Vol] mg/dL NINF - 10 mg/dL [facility] Ethanol Alcoholon 01-19-2024 Ethanol [Mass/Vol] mg/dL Normal <10 [facility] Comment on above: Performed By: #### C DP, CK, MARCIO, TROPI, BMPX, GLYHGB, BH, SED, ALCB, CRP ####[facility] [address] [place], [place] [id number] Lab Director: Ramiro Mark MD Ethanol percent <0.010 Normal <0.010 [facility] Comment on above: Performed By: #### C DP, CK, MARCIO, TROPI, BMPX, GLYHGB, BH, SED, ALCB, CRP ####[address] [place] [address] Lab Director: Ramiro Mark MD Glucose (POC)on 01-19-2024 Glucose [Mass/Vol] 199 mg/dL High 74-100 [facility] Glucose CSFon 01-19-2024 Glucose (CSF) [Mass/Vol] 194 mg/dL High 40 - 70 mg/dL [facility] Glucose,CSFon 01-19-2024 Glucose [Mass/Vol] 194 mg/dL High 40-70 [facility] Comment on above: Performed By: #### C FCNT, MEVP, CFVD, CGLU, CTP ####[facility] [address] [place] [address] Lab Director: Ramiro Mark MD#### ALYMCT, AWNCSF ####[facility] [address] [place] [address] Lab Director: Wil Swanson MD Glucose,Whole Bloodon 2023 Glucose [Mass/Vol] 77 mg/dL Normal 75-110 [facility] Glucose [Mass/Vol] 111 mg/dL High 75-110 [facility] Glucose [Mass/Vol] 179 mg/dL High 75-110 [facility] Glucose [Mass/Vol] 257 mg/dL High 75-110 [facility] Glucose [Mass/Vol] 255 mg/dL High 75-110 [facility] Glucose [Mass/Vol] 235 mg/dL High 75-110 [facility] Glucose [Mass/Vol] 178 mg/dL High 75-110 [facility] Glucose [Mass/Vol] 190 mg/dL High 75-110 [facility] Glucose [Mass/Vol] 235 mg/dL High 75-110 [facility] Glucose [Mass/Vol] 269 mg/dL High 75-110 [facility] Glucose [Mass/Vol] 303 mg/dL High 75-110 [facility] Glucose [Mass/Vol] 297 mg/dL High 75-110 [facility] Glucose [Mass/Vol] 496 mg/dL Critically high 75-110 [facility] Glucose [Mass/Vol] 375 mg/dL High 75-110 [facility] Glucose [Mass/Vol] 548 mg/dL Critically high 75-110 [facility] Glucose [Mass/Vol] 506 mg/dL Critically high 75-110 [facility] Comment on above: Result Comment: Martin carvajal Noted Guidance for puncture of Lum bar spineon 01-19-2024 Radiology Study observation (narrative) [facility] HSV DNA, PCRon 01-19-2024 HSV source .CSF Normal [facility] Comment on above: Performed By: #### A HSVPC ####[address] [place] [address] Lab Director: Ramiro Mark MDA[address] [address] Lab Director: Wil Swanson MD Hemoglobin A1Con 01-19-2024 Average glucose Estimated from glycated hemoglobin (Bld) [Mass/Vol] 298 mg/dL [facility] HbA1c (Bld) [Mass fraction] 12.0 % High 4.0 - 6.0 % [facility] Interpretation and review of laboratory results Abnormal [facility] Glucose [Mass/Vol] 298 mg/dL Normal [facility] Comment on above: Result Comment: The ADA and AACC recommend providing the estimated average glucose result to permit better patient understanding of their HBA1c result. Performed By: #### C DP, CK, MARCIO, TROPI, BMPX, GLYHGB, BH, SED, ALCB, CRP ####[address] [place] [address] Lab Director: Ramiro Mark MD HbA1c (Bld) [Mass fraction] 12.0 % High 4.0-6.0 [facility] Comment on above: Performed By: #### C DP, CK, MARCIO, TROPI, BMPX, GLYHGB, BH, SED, ALCB, CRP ####[facility] [address] [place] [address] Lab Director: Ramiro Mark MD Lactic Acidon 01-19-2024 Lactic Acid, Whole Blood 1.2 mmol/L 0.7 - 2.1 mmol/L [facility] Lactic Acid,Whole Bl 1.2 mmol/L Normal 0.7-2.1 [facility] Comment on above: Performed By: #### L ACTIC ####[facility] [address] [place] [address] Lab Director: Ramiro Mark MD Lactate (BldV) [Moles/Vol] 2.2 mmol/L 0.5 - 2.2 mmol/L [facility] Lactate [Moles/Vol] 2.2 mmol/L Normal 0.5-2.2 [facility] Comment on above: Performed By: #### L ACTIC #### [facility] [address] [place] [address] Retail Salesworker: Ramiro Santillan MD MR Brain WO and W contrast I Von 01-19-2024 [facility] RIS CONSOLIDATED [facility] RIS CONSOLIDATED [facility] Radiology Study observation (narrative) [facility] MR Brain WO and W contrast I VOrdered By: Daniel Ramos on 01-19-2024 [facility] Work Phone: MRI BRAIN W WO CONTRASTon MRI BRAIN W WO CONTRAST Normal [facility] MRSA DNA Probe, Nasalon MRSA, DNA, Nasal Negative NEGATIVE [facility] Specimen Description .NASAL SWAB [facility] MRSA, DNA, Nasalon MRSA, DNA, Nasal Negative Normal NEG [facility] Comment on above: Result Comment: NEGA TIVE: MRSA DNA not detected by nucleic acid amplification.Results should be used as an adjunct to nosocomial control efforts to identify patients needing enhanced precautions.The test is not intended to identify patients with staphylococcal infections. Results should not be used to guide or monitor treatment for MRSA infections. Performed By: #### M RSANO ####[facility] HospitalVaddio Jrabuqnpdvnc[address] [place], [place] [phone] Lab Director: Ramiro Mark MD Specimen Description .NASAL SWAB Normal [facility] Comment on above: Performed By: #### M RSANO ####[facility] [address] [place], [place] [id number] Lab Director: Ramiro Mark MD Magnesiumon 01-19-2024 Magnesium [Mass/Vol] 2.1 mg/dL 1.6 - 2 .6 mg/dL [facility] Magnesium [Mass/Vol] 2.1 mg/dL Normal 1.6-2.6 [facility] Comment on above: Performed By: #### B MP, CHELO, MG ####[facility] [address] [place], [place] [id number] lab Director: Ramiro Mark MD Magnesium [Mass/Vol] 2.0 mg/dL 1.6 - 2 .6 mg/dL [facility] Magnesium [Mass/Vol] 2.0 mg/dL Normal 1.6-2.6 [facility] Comment on above: Performed By: #### B MP, PRCAL, PT, MG, CHELO, PTT ####[facility] [address] [place] [address] lab Director: Ramiro Mark MD Meningitis Encephalitis Pane l CSF, Molecularon 01-19-2024 C. gattii+neoformans DNA MEETA+non-probe Ql (CSF) Not detected Not Detected [facility] CMV DNA MEETA+non-probe Ql (CSF) Not detected Not Detected [facility] E. coli K1 DNA MEETA+non-probe Ql (CSF) Not detected Not Detected [facility] Enterovirus RNA MEETA+non-probe Ql (CSF) Not detected Not Detected [facility] H. influenzae DNA MEETA+non-probe Ql (CSF) Not detected Not Detected [facility] HHV 6 DNA MEETA+non-probe Ql (CSF) Not detected Not Detected [facility] HSV 1 DNA MEETA+non-probe Ql (CSF) Not detected Not Detected [facility] HSV 2 DNA MEETA+non-probe Ql (CSF) Not detected Not Detected [facility] L. monocytogenes DNA MEETA+non-probe Ql (CSF) Not detected Not Detected [facility] N. meningitidis DNA MEETA+non-probe Ql (CSF) Not detected Not Detected [facility] Parechovirus A RNA MEETA+non-probe Ql (CSF) Not detected Not Detected [facility] S. agalactiae DNA MEETA+non-probe Ql (CSF) Not detected Not Detected [facility] S. pneumoniae DNA MEETA+non-probe Ql (CSF) Not detected Not Detected [facility] Specimen Description .CSF [facility] VZV DNA MEETA+non-probe Ql (CSF) Not detected Not Detected [facility] Meningitis Panelon 4 C. neoformans/gattii Not detected Normal [facility] Comment on above: Result Comment: Perf ormed by multiplexed nucleic acid assay. Performed By: #### C FCNT, MEVP, CFVD, CGLU, CTP ####[facility] [address] [place] [address] 620[address] Lab Director: Ramiro Mark MD#### CHESTER EMADE ####[facility] [address] [place] [address] [phone] lab Director: Wil Swanson MD Cytomegalovirus Not detected Normal [facility] Comment on above: Performed By: #### C FCNT, MEVP, CFVD, CGLU, CTP ####[facility] [address] [place] [address] [phone] Lab Director: Ramiro Mark MD#### CHESTER MEADE ####[facility] [address] [place], [place] [phone] Lab Director: Wil Swanson MD Enterovirus Not detected Normal [facility] Comment on above: Performed By: #### C FCNT, MEVP, CFVD, CGLU, CTP ####[facility] [address] [place] [address] 49388 Lab Director: Ramiro Mark MD#### CHESTER MEADE ####[facility] [address] [place] [address] [phone] Lab Director: Wil Swanson MD Escherichia coli K1 Not detected Normal [facility] Comment on above: Performed By: #### C FCNT, MEVP, CFVD, CGLU, CTP ####[facility] [address] [place] [address] 28560 Lab Director: Ramiro Mark MD#### CHESTER MEADE ####[facility] [address] [place] [address] [phone] Lab Director: Wil Swanson MD Haemoph. influenzae Not detected Normal [facility] Comment on above: Performed By: #### C FCNT, MEVP, CFVD, CGLU, CTP ####[facility] [address] [place] [address] 90457 Lab Director: Ramiro Mark MD#### CHESTER MEADE ####[facility] [address] [place] [address] 89111 Lab Director: Wil Swanson MD HSV-1 Not detected Normal [facility] Comment on above: Performed By: #### C FCNT, MEVP, CFVD, CGLU, CTP ####[facility] [address] [place] [address] 12468 Lab Director: Ramiro Mark MD#### AHSAN MEADEF ####[facility] [address] [place] [address] [phone] Lab Director: Wil Swanson MD HSV-2 Not detected Normal [facility] Comment on above: Performed By: #### C FCNT, MEVP, CFVD, CGLU, CTP ####[facility] [address]ispv75[address] [place] [address] Lab Director: Ramiro Mark MD#### CHESTER MEADE ####[facility] [address] [place] [address] 19041 Lab Director: Wil Swanson MD Human herpesvirus 6 Not detected Normal [facility] Comment on above: Performed By: #### C FCNT, MEVP, CFVD, CGLU, CTP ####[facility] [address] [place] [address] 24091 Lab Director: Ramiro Mark MD#### CHESTER MEADE ####[facility] [address] [place] [address] 23475 Lab Director: Wil Swanson MD Human parechovirus Not detected Normal [facility] Comment on above: Performed By: #### C FCNT, MEVP, CFVD, CGLU, CTP ####[facility] [address] [place] [address] 78329 Lab Director: Ramiro Mark MD#### CHESTER MEADE ####[facility] [address] [place] [address] [phone] Lab Director: Wil Swanson MD List. monocytogenes Not detected Normal [facility] Comment on above: Performed By: #### C FCNT, MEVP, CFVD, CGLU, CTP ####[facility] [address]qkil6805 [place] [address] Lab Director: Ramiro Mark MD#### CHESTER MEADE ####[facility] [address] [place] [address] [phone] Lab Director: Wil Swanson MD Neis. meningitidis Not detected Normal [facility] Comment on above: Performed By: #### C FCNT, MEVP, CFVD, CGLU, CTP ####[facility] [address]uzuxjimrdb0382 [place] [address] Lab Director: Ramiro Mark MD#### CHESTER MEADE ####[facility] [address] [place] [address] Lab Director: Wil Swanson MD Strep. agalactiae Not detected [facility] Comment on above: Performed By: #### C FCNT, MEVP, CFVD, CGLU, CTP ####[facility] [address] [place] [address] 60885 Lab Director: Ramiro Mark MD#### CHETSER EMADE ####[facility] [address] [place] [address] 56525 Lab Director: Wil Swanson MD Strep. pneumoniae Not detected Normal [facility] Comment on above: Performed By: #### C FCNT, MEVP, CFVD, CGLU, CTP ####[address] [address] Lab Director: Ramiro Mark MD#### CHESTER MEADE ####[facility] [address] [place] [address] 39990 Lab Director: Wil Swanson MD Varicella-zoster Not detected [facility] Comment on above: Performed By: #### C FCNT, MEVP, CFVD, CGLU, CTP ####[address] [address] Lab Director: Ramiro Mark MD#### CHESTER MEADE ####[facility] [address] [place] [address] 06107 Lab Director: Wil Swanson MD Source: .CSF Normal [facility] Comment on above: Performed By: #### C FCNT, MEVP, CFVD, CGLU, CTP ####[facility] [address] [place] [address] Lab Director: Ramiro Mark MD#### ALYMCT, AWNCSF ####[facility] [address] [place] [address] lab Director: Wil Swanson MD Myoglobinon 01-19-2024 Myoglobin [Mass/Vol] 166 ng/mL High 28-72 [facility] Comment on above: Performed By: #### C DP, CK, MARCIO, TROPI, BMPX, GLYHGB, BH, SED, ALCB, CRP ####[facility] [address] [place] [address] lab Director: Ramiro Mark MD Myoglobin, Bloodon Myoglobin [Mass/Vol] 166 ng/mL High 28 - 72 ng/mL [facility] No Panel Informationon 01-18 [facility] Interpretation and review of laboratory results Abnormal [facility] Interpretation and review of laboratory results Abnormal [facility] Interpretation and review of laboratory results Abnormal [facility] Radiology Study observation (narrative) [facility] Interpretation and review of laboratory results Abnormal [facility] POC Glucose Fingerstickon Glucose [Mass/Vol] 77 mg/dL 75 - 110 mg/dL [facility] Glucose [Mass/Vol] 111 mg/dL High 75 - 110 mg/dL [facility] Interpretation and review of laboratory results Abnormal [facility] Glucose [Mass/Vol] 179 mg/dL High 75 - 110 mg/dL [facility] Interpretation and review of laboratory results Abnormal [facility] Glucose [Mass/Vol] 257 mg/dL High 75 - 110 mg/dL [facility] Interpretation and review of laboratory results Abnormal [facility] Glucose [Mass/Vol] 255 mg/dL High 75 - 110 mg/dL [facility] Interpretation and review [facility] laboratory results Abnormal [facility] Glucose [Mass/Vol] 235 mg/dL High 75 - 110 mg/dL [facility] Interpretation and review of laboratory results Abnormal [facility] Glucose [Mass/Vol] 178 mg/dL High 75 - 110 mg/dL [facility] Interpretation and review of laboratory results Abnormal [facility] Glucose [Mass/Vol] 190 mg/dL High 75 - 110 mg/dL [facility] Interpretation and review of laboratory results Abnormal [facility] Glucose [Mass/Vol] 235 mg/dL High 75 - 110 mg/dL [facility] Interpretation and review of laboratory results Abnormal [facility] Glucose [Mass/Vol] 269 mg/dL High 75 - 110 mg/dL [facility] Interpretation and review of laboratory results Abnormal [facility] Glucose [Mass/Vol] 303 mg/dL High 75 - 110 mg/dL [facility] Interpretation and review of laboratory results Abnormal [facility] Glucose [Mass/Vol] 297 mg/dL High 75 - 110 mg/dL [facility] Interpretation and review of laboratory results Abnormal [facility] Glucose [Mass/Vol] 496 mg/dL Critically high 75 - 1 10 mg/dL [facility] Glucose [Mass/Vol] 375 mg/dL High 75 - 110 mg/dL [facility] Glucose [Mass/Vol] 548 mg/dL Critically high 75 - 1 10 mg/dL [facility] Interpretation and review of laboratory results Abnormal [facility] Glucose [Mass/Vol] 506 mg/dL Critically high 75 - 1 10 mg/dL [facility] Interpretation and review of laboratory results Abnormal [facility] POCT Glucoseon 01-19-2024 Glucose [Mass/Vol] 199 mg/dL High 74 - 100 mg/dL [facility] PTon 01-19-2024 INR Coag (PPP) [Relative time] 1.1 {INR} Normal [facility] Comment on above: Result Comment: Ther apeutic Range: Moderate Anticoagulant Intensity: INR = 2.0-3.0 High Anticoagulant Intensity: INR = 2.5-3.5 Performed By: #### B MP, PRCAL, PT, MG, CHELO, PTT ####[facility] [address] [place] [address] Lab Director: Ramiro Mark MD PT Coag (PPP) [Time] 13.8 s Normal 11.7-14.9 [facility] Comment on above: Performed By: #### B MP, PRCAL, PT, MG, CHELO, PTT ####[facility] [address] [place] [address] 23804 Lab Director: Ramiro Mark MD Phosphoruson 01-19-2024 Phosphate [Mass/Vol] 3.8 mg/dL 2.5 - 4 .5 mg/dL [facility] Phosphate [Mass/Vol] 2.6 mg/dL 2.5 - 4 .5 mg/dL [facility] Phosphorus, Inorg.on 024 Phosphorus, Inorg. 3.8 mg/dL Normal 2.5-4.5 [facility] Comment on above: Performed By: #### B MP, CHELO, MG ####[facility] [address] [place] [address] lab Director: Ramiro Mark MD Phosphorus, Inorg. 2.6 mg/dL Normal 2.5-4.5 [facility] Comment on above: Performed By: #### B MP, PRCAL, PT, MG, CHELO, PTT ####[facility] [address] [place], [place] [id number] Lab Director: Ramiro Mark MD Portable XR Chest AP single viewon 01-19-2024 MHPN RIS CONSOLIDATED MHPN RIS CONSOLIDATED [facility] MHPN RIS CONSOLIDATED MHPN RIS CONSOLIDATED [facility] Portable XR Chest AP single viewOrdered By: Sreedhar Mims on 01-19-2024 [facility] Work Phone: Portable XR Chest AP single viewOrdered By: Felix Adams on 01-19-2024 [facility] Work Phone: Procalcitoninon 01-19-2024 Interpretation and review of laboratory results Abnormal [facility] Procalcitonin [Mass/Vol] 0.15 ng/mL High 0.00 - 0.09 ng/mL [facility] Procalcitonin 0.15 ng/mL High 0.00-0.09 [facility] Comment on above: Result Comment: Susp [...] entered into the Change in Procalcitonin Calculator (www.tfnxwl-xll-nyuoxotgqj.com) to determine the patient's Mortality Risk PrognosisIn healthy neonates, plasma Procalcitonin (PCT) concentrations increase gradually after , reaching peak values at about 24 hours of age then decrease to normal values below 0.5 ng/mL by 48-72 hours of age. Performed By: #### B MP, PRCAL, PT, MG, CHELO, PTT ####[address] [place] [address] [facility] Director: Ramiro Mark MD Protein, CSFon 01-19-2024 Protein (CSF) [Mass/Vol] 89.1 mg/dL High 15.0 - 45.0 mg/dL [facility] Protein, Total, CSFon 2023 Total Protein - CSF 89.1 mg/dL High 15.0-45.0 [facility] Comment on above: Performed By: #### C FCNT, MEVP, CFVD, CGLU, CTP ####[facility] [address] [place] [address] Lab Director: Ramiro Mark MD#### ALYMCT, AWNCSF ####[facility] [address] [place] [address] Lab Director: Wil Swanson MD Protime-INRon 01-19-2024 INR Coag (PPP) [Relative time] 1.1 {INR} [facility] PT Coag (PPP) [Time] 13.8 s [facility] [employer] Resp Viral Panelon Adenovirus Not detected Normal [facility] Comment on above: Performed By: #### R CABLE PULLER ####[address] [address] Lab Director: MD Lakesha Moreno.parapertussis Not detected Normal [facility] Comment on above: Performed By: #### R CABLE PULLER ####[facility] [place] [address] Lab Director: Ramiro Mark MD Bordetella pertussis Not detected Normal [facility] Comment on above: Performed By: #### R CABLE PULLER ####[address] [place] [address] Lab Director: Ramiro Mark MD Chlamyd.pneumoniae Not detected Normal [facility] Comment on above: Performed By: #### R CABLE PULLER ####[address] [address] Lab Director: Ramiro Mark MD Coronavirus 229E Not detected Normal [facility] Comment on above: Performed By: #### R CABLE PULLER ####[address] [place] [address] Lab Director: Ramiro Mark MD Coronavirus HKU1 Not detected Normal [facility] Comment on above: Performed By: #### R CABLE PULLER ####[address] [phone] Director: Ramiro Mark MD Coronavirus NL63 Not detected [facility] Comment on above: Performed By: #### R CABLE PULLER ####[address] [phone] Director: Ramiro Mark MD Coronavirus OC43 Not detected Normal [facility] Comment on above: Performed By: #### R CABLE PULLER ####[address] [phone] Director: Ramiro Mark MD Human Metapneumo Not detected [facility] Comment on above: Performed By: #### R CABLE PULLER ####[address] [phone] Director: Ramiro Mark MD Influenza A Not detected Normal [facility] Comment on above: Performed By: #### R CABLE PULLER ####[address] [phone] Director: Ramiro Mark MD Influenza B Not detected [facility] Comment on above: Performed By: #### R CABLE PULLER ####[address] [phone] Director: Ramiro Mark MD Mycoplas.pneumoniae Not detected Normal [facility] Comment on above: Result Comment: Perf ormed by multiplexed nucleic acid assay. Performed By: #### R CABLE PULLER ####[address] [address] Lab Director: Ramiro Mark MD Parainfluenza 1 Not detected Normal [facility] Comment on above: Performed By: #### R CABLE PULLER ####[address] [address] Lab Director: Ramiro Mark MD Parainfluenza 2 Not detected Normal [facility] Comment on above: Performed By: #### R CABLE PULLER ####[address] [address] Lab Director: Ramiro Mark MD Parainfluenza 3 Not detected Normal [facility] Comment on above: Performed By: #### R CABLE PULLER ####[address] [address] Lab Director: Ramiro Mark MD Parainfluenza 4 Not detected Normal [facility] Comment on above: Performed By: #### R CABLE PULLER ####[address] [address] Lab Director: Ramiro Mark MD Resp Syncytial Virus Not detected Normal [facility] Comment on above: Performed By: #### R CABLE PULLER ####[address] [address] Lab Director: Ramiro Mark MD Rhino/Enterovirus Not detected Normal [facility] Comment on above: Performed By: #### R CABLE PULLER ####[address] [address] Lab Director: Ramiro Mark MD SARS-CoV-2 (COVID-19) RNA MEETA+probe Ql (Unsp spec) Not detected Normal NOTDET [facility] Comment on above: Performed By: #### R CABLE PULLER ####[facility] [address] [place], [place] [id number] lab Director: Ramiro Mark MD Source: .NASOPHARYNGEAL SWAB Normal [facility] Comment on above: Performed By: #### R CABLE PULLER ####[facility] [address] [place] [address] lab Director: Ramiro Mark MD Respiratory Panel, Molecular , with COVID-19 (Restricted: peds pts or suitable admitted adults)on 01-19-2024 Adenovirus DNA MEETA+non-probe Ql (Nph) Not detected Not Detected [facility] B. parapertussis [id number] DNA MEETA+non-probe Ql (Nph) Not detected Not Detected [facility] B. pertussis DNA MEETA+probe Ql (Unsp spec) Not detected Not Detected [facility] C. pneumoniae DNA MEETA+non-probe Ql (Nph) Not detected Not Detected [facility] FLUAV RNA MEETA+non-probe Ql (Nph) Not detected Not Detected [facility] FLUBV RNA MEETA+non-probe Ql (Nph) Not detected Not Detected [facility] HCoV 229E RNA MEETA+non-probe Ql (Nph) Not detected Not Detected [facility] HCoV HKU1 RNA MEETA+non-probe Ql (Nph) Not detected Not Detected [facility] HCoV NL63 RNA MEETA+non-probe Ql (Nph) Not detected Not Detected [facility] HCoV OC43 RNA MEETA+non-probe Ql (Nph) Not detected Not Detected [facility] hMPV RNA MEETA+non-probe Ql (Nph) Not detected Not Detected [facility] M. pneumoniae DNA MEETA+non-probe Ql (Nph) Not detected Not Detected [facility] Parainfluenza virus 1 RNA MEETA+non-probe Ql (Nph) Not detected Not Detected [facility] Parainfluenza virus 2 RNA MEETA+non-probe Ql (Nph) Not detected Not Detected [facility] Parainfluenza virus 3 RNA MEETA+non-probe Ql (Nph) Not detected Not Detected [facility] Parainfluenza virus 4 RNA MEETA+non-probe Ql (Nph) Not detected Not Detected [facility] Rhinovirus+Enterovirus RNA MEETA+non-probe Ql (Nph) Not detected Not Detected [facility] RSV RNA MEETA+non-probe Ql (Nph) Not detected Not Detected [facility] SARS-CoV-2 (COVID-19) RNA MEETA+non-probe Ql (Nph) Not detected Not Detected [facility] Specimen Description .NASOPHARYNGEAL SWAB [facility] Sedimentation Rateon 024 ESR Photometric method (Bld) [Velocity] 28 High [facility] Interpretation and review of laboratory results Abnormal [facility] Sedimentation Rate 28 mm/Hr High 0-20 [facility] Comment on above: Result Comment: ADDE D ON Performed By: #### C DP, CK, MARCIO, TROPI, BMPX, GLYHGB, BH, SED, ALCB, CRP ####[facility] [address] [place], [place] [id number] lab Director: Ramiro Mark MD Surgical Pathology Reporton 01-19-2024 Surgical Pathology Report Normal [facility] TSH w/reflex to FT4on 2023 Thyroid Stim. Horm. 0.58 uIU/mL Normal 0.27-4.20 [facility] Comment on above: Performed By: #### A MON, TSHX ####[facility] [address] [place], [place] [id number] Lab Director: Ramiro Mark MD TSH with Reflexon 01-19-2024 TSH Qn 0.58 m[IU]/L [facility] Troponinon 01-19-2024 Troponin I.cardiac High sensitivity method [Mass/Vol] 39 ng/L High 0 - 22 ng/L [facility] Troponin, High Sens 39 ng/L High 0-22 [facility] Comment on above: Result Comment: High Sensitivity Troponin values cannot be compared with other Troponin methodologies. Performed By: #### C DP, CK, MARCIO, TROPI, BMPX, GLYHGB, BH, SED, ALCB, CRP ####[address] [address] Lab Director: Ramiro Mark MD Interpretation and review of laboratory results Abnormal [facility] Troponin I.cardiac High sensitivity method [Mass/Vol] 45 ng/L High 0 - 22 ng/L [facility] Comment on above: High Sensitivity Tro ponin values cannot be compared with other Troponin methodologies. [facility] Troponin, High Sens 45 ng/L High 0-22 [facility] Comment on above: Result Comment: High Sensitivity Troponin values cannot be compared with other Troponin methodologies. Performed By: #### B H #### [facility] [address] [place] [address] Retail Salesworker: Ramiro Santillan MD Urinalysis w/ Microon 2023 Bacteria None Normal NONE [facility] Comment on above: Performed By: #### U AMIC ####[address] [address] Lab Director: Ramiro Mark MD Bilirubin, SemiQt,Ur Negative Normal NEG [facility] Comment on above: Performed By: #### U AMIC ####[address] [address] Lab Director: Ramiro Mark MD Blood, Urine SMALL Abnormal NEG [facility] Comment on above: Performed By: #### U AMIC ####[address] [address] Lab Director: Ramiro Mark MD Casts 2 TO 5 HYALINE Normal 0-8 [facility] Comment on above: Result Comment: Refe rence range defined for non-centrifuged specimen. Performed By: #### U AMIC ####[address] [address] Lab Director: Ramiro Mark MD Clarity (U) Clear Normal CLEAR [facility] Comment on above: Performed By: #### U AMIC ####[address] [place] [address] Lab Director: Ramiro Mark MD Color (U) Yellow Normal YEL [facility] Comment on above: Performed By: #### U AMIC ####[facility] [address] [place] [address] Lab Director: Ramiro Mark MD Epithelial cells LM Ql (Urine sed) 2 TO 5 Normal 0-5 [facility] Comment on above: Performed By: #### U AMIC ####[address] [address] Lab Director: Ramiro Mark MD Glucose Ql (U) 3+ mg/dL Abnormal NEG [facility] Comment on above: Performed By: #### U AMIC ####[address] [address] Lab Director: Ramiro Mark MD Ketones Ql (U) MODERATE Abnormal NEG [facility] Comment on above: Performed By: #### U AMIC ####[address] [address] Lab Director: Ramiro Mark MD Leukocyte esterase Test strip Ql (U) Negative Normal NEG [facility] Comment on above: Performed By: #### U AMIC ####[address] [address] Lab Director: Ramiro Mark MD Nitrite,Ur Negative Normal NEG [facility] Comment on above: Performed By: #### U AMIC ####[address] [place] [address] Lab Director: Ramiro Mark MD PH,Ur 5.5 Normal 5.0-8.0 [facility] Comment on above: Performed By: #### U AMIC ####[facility] [address] [place], [place] [address])[phone] Director: Ramiro Mark MD Protein Ql (U) 3+ mg/dL Abnormal NEG [facility] Comment on above: Performed By: #### U AMIC ####[facility] [address] [place] [address])[phone] Director: Ramiro Mark MD Spec. [place],Ur 1.033 High 1.005-1.030 [facility] Comment on above: Performed By: #### U AMIC ####[facility] [id number] [place], [place] [address])[phone] Director: Ramiro Mark MD Urine RBC's 5 TO 10 Normal 0-4 [facility] Comment on above: Result Comment: Refe rence range defined for non-centrifuged specimen. Performed By: #### U AMIC ####[address] [address])[phone] Director: Ramiro Mark MD Urine WBC's 2 TO 5 Normal 0-5 [facility] Comment on above: Performed By: #### U AMIC ####[facility] [place] [address])[phone] Director: Ramiro Mark MD Urobilinogen,Ur Normal Normal 0.0-1.0 [facility] Comment on above: Performed By: #### U AMIC ####[facility] [id number] [place], [place] [address])[phone] Director: Ramiro Mark MD Urinalysis with Microscopico n 01-19-2024 Bacteria LM Ql (Urine sed) None None [facility] Bilirubin Ql (U) Negative NEGATIVE [facility] Casts LM.LPF (Urine sed) [#/Area] 2 TO 5 HYALINE Reference range defined for non-centrifuged specimen. [facility] Clarity (U) Clear Clear [facility] Color (U) Yellow Yellow [facility] Epithelial cells LM.HPF (Urine sed) [#/Area] 2 TO 5 [facility] Glucose Test strip (U) [Mass/Vol] 3+ Abnormal NEGATIVE mg/dL [facility] Hemoglobin Auto test strip Ql (U) SMALL Abnormal NEGATIVE [facility] Interpretation and review of laboratory results Abnormal [facility] Ketones (U) [Mass/Vol] MODERATE Abnormal NEGAT RAJAN mg/dL [facility] Leukocyte esterase Test strip Ql (U) Negative NEGATIVE [facility] Nitrite Ql (U) Negative NEGATIVE [facility] pH (U) 5.5 [pH] 5.0 - 8.0 [facility] Protein (U) [Mass/Vol] 3+ Abnormal NEGAT RAJAN mg/dL [facility] RBC LM.HPF (Urine sed) [#/Area] 5 TO 10 [facility] Specific gravity (U) [Rel density] 1.033 High 1.005 - 1.030 [facility] Urobilinogen Qn (U) Normal 0.0 - 1. 0 EU/dL [facility] WBC LM.HPF (Urine sed) [#/Area] 2 TO 5 [facility] XR ABDOMEN FOR NG/OG/NE TUBE PLACEMENTon 01-19-2024 XR ABDOMEN FOR NG/OG/NE TUBE PLACEMENT Normal [facility] MHPN RIS CONSOLIDATED MHPN RIS CONSOLIDATED [facility] XR CHEST PORTABLEon 01-19-20 24 XR CHEST PORTABLE Normal [facility] XR CHEST PORTABLE Normal [facility] BMPon 01-18-2024 Anion gap [Moles/Vol] 14 mmol/L 9 - 17 mmol/L [facility] Calcium [Mass/Vol] 9.3 mg/dL 8.6 - 10. 4 mg/dL [facility] Chloride [Moles/Vol] 95 mmol/L Low 98 - 10 7 mmol/L [facility] CO2 [Moles/Vol] 22 mmol/L 20 - 31 mmol/L [facility] Creatinine [Mass/Vol] 1.7 mg/dL High 0.7 - 1.2 mg/dL [facility] GFR/1.73 sq M.predicted MDRD (S/P/Bld) [Vol rate/Area] 49 mL/min/{1.73_m2} Low - PINF [facility] Comment on above: These results are [...] 242 mg/dL High 70 - 99 mg/dL [facility] Potassium [Moles/Vol] 4.7 mmol/L 3.7 - 5.3 mmol/L [facility] Sodium [Moles/Vol] 131 mmol/L Low 135 - 144 mmol/L [facility] Urea nitrogen [Mass/Vol] 44 mg/dL High 6 - 20 mg/dL [facility] Urea nitrogen/Creatinine [Mass ratio] 26 mg/mg High 9 - 20 [facility] Basic Metabolic Profon 01-17 Anion gap [Moles/Vol] 14 mmol/L Normal 9-[address] [facility] Comment on above: Performed By: #### L ACTIC #### [facility] [address] [place] [address] Retail Salesworker: Ramiro Santillan MD BUN/CRE Ratio 26 High 9-20 [facility] Comment on above: Performed By: #### L ACTIC #### [facility] [address] [place] [address] Retail Salesworker: Ramiro Santillan MD Calcium [Mass/Vol] 9.3 mg/dL Normal 8.6-10.4 [facility] Comment on above: Performed By: #### L ACTIC #### [facility] [address] [place] [address] Retail Salesworker: Ramiro Santillan MD Chloride [Moles/Vol] 95 mmol/L Low 98-107 [facility] Comment on above: Performed By: #### L ACTIC #### [facility] [address] [place] [address] Retail Salesworker: Ramiro Santillan MD CO2 [Moles/Vol] 22 mmol/L Normal 20-31 [facility] Comment on above: Performed By: #### L ACTIC #### [facility] [address] [place] [address] Retail Salesworker: Ramiro Santillan MD Creatinine [Mass/Vol] 1.7 mg/dL High 0.7-1.[address] [facility] Comment on above: Performed By: #### L ACTIC #### [facility] [address] [place] [address] Retail Salesworker: Ramiro Santillan MD GFR/1.73 sq M.predicted among non-blacks MDRD (S/P/Bld) [Vol rate/Area] 49 mL/min/{1.73_m2} Low >60 [facility] Comment on above: Result Comment: These results [...] secretion. Performed By: #### L ACTIC #### [facility] [address] [place] [address] Retail Salesworker: Ramiro Santillan MD Glucose [Mass/Vol] 242 mg/dL High 70-99 [facility] Comment on above: Performed By: #### L ACTIC #### [facility] [address] [place] [address] Retail Salesworker: Ramiro Santillan MD Potassium [Moles/Vol] 4.7 mmol/L Normal 3.7-5.[address] [facility] Comment on above: Performed By: #### L ACTIC #### [facility] [address] [place], [place] [id number] Retail Salesworker: Ramiro Santillan MD Sodium [Moles/Vol] 131 mmol/L Low 135-144 [facility] Comment on above: Performed By: #### L ACTIC #### [facility] [address] [place] [address] Retail Salesworker: Ramiro Santillan MD Urea nitrogen [Mass/Vol] 44 mg/dL High 6-20 [facility] Comment on above: Performed By: #### L ACTIC #### [facility] [address] [place] [address] Retail Salesworker: Ramiro Santillan MD CBC with Auto Differentialon 01-18-2024 Basophils (Bld) [#/Vol] 0.06 10*3/uL [facility] Basophils/100 WBC (Bld) 1 % 0 - 2 % [facility] Eosinophils (Bld) [#/Vol] 0.17 10*3/uL [facility] Eosinophils/100 WBC (Bld) 2 % 1 - 4 % [facility] Erythrocyte distribution width (RBC) [Ratio] 13.4 % 11.8 - 14.4 % [facility] Hematocrit (Bld) [Volume fraction] 36.5 % Low 40.7 - 50.3 % [facility] Hemoglobin (Bld) [Mass/Vol] 13.0 g/dL 13.0 - 17.0 g/dL [facility] Immature granulocytes (Bld) [#/Vol] 0.03 10*3/uL [facility] Immature granulocytes/100 WBC (Bld) 0 % 0 [facility] Interpretation and review of laboratory results Abnormal [facility] Lymphocytes/100 WBC (Bld) 23 % Low 24 - 43 % [facility] Lymphocytes/100 WBC (Bld) 1.95 % [facility] MCH (RBC) [Entitic mass] 29.6 pg 25.2 - 33.5 pg [facility] MCHC (RBC) [Mass/Vol] 35.6 g/dL High 28.4 - 34.8 g/dL [facility] MCV (RBC) [Entitic vol] 83.1 fL 82.6 - 102.9 fL [facility] Monocytes/100 WBC (Bld) 6 % 3 - 12 % [facility] Monocytes/100 WBC (Bld) 0.54 % [facility] Neutrophils/100 WBC (Bld) 68 % High 36 - 65 % [facility] Nucleated RBC/100 WBC (Bld) [Ratio] 0.0 % 0.0 per 100 WBC [facility] Platelet mean volume (Bld) [Entitic vol] 10.4 fL 8.1 - 13.5 fL [facility] Platelets (Bld) [#/Vol] 212 10*3/uL [facility] RBC (Bld) [#/Vol] 4.39 10*6/uL 4.21 - 5.7 7 m/uL [facility] Segmented neutrophils/100 WBC (Bld) 5.80 % [facility] WBC other (Bld) [#/Vol] 8.6 [facility] CBC with Diffon 01-18-2024 Abs. Basophil 0.06 k/uL Normal 0.00-0.20 [facility] Comment on above: Performed By: #### L ACTIC #### [facility] [address] [place] [address] Retail Salesworker: Ramiro Santillan MD Abs.Imm.Granulocyte 0.03 k/uL Normal 0.00-0.30 [facility] Comment on above: Performed By: #### L ACTIC #### [facility] [address] [place] [address] Retail Salesworker: Ramiro Santillan MD Abs.Neutrophil (Seg) 5.80 k/uL Normal 1.50-8.10 [facility] Comment on above: Performed By: #### L ACTIC #### [address] [place], [facility]83 Retail Salesworker: Ramiro Santillan MD Basophils/100 WBC (Bld) 1 % Normal 0-2 [facility] Comment on above: Performed By: #### L ACTIC #### [address] [place], [place] [address] Retail Salesworker: Ramiro Santillan MD Eosinophils (Bld) [#/Vol] 0.17 10*3/uL Normal 0.00-0.44 [facility] Comment on above: Performed By: #### L ACTIC #### [address] [place], [facility]83 Retail Salesworker: Ramiro Santillan MD Eosinophils/100 WBC (Bld) 2 % Normal 1-4 [facility] Comment on above: Performed By: #### L ACTIC #### [address] [place], [facility]83 Retail Salesworker: Ramiro Santillan MD Erythrocyte distribution width (RBC) [Ratio] 13.4 % Normal 11.8-14.4 [facility] Comment on above: Performed By: #### L ACTIC #### [address] [place], [facility]83 Retail Salesworker: Ramiro Santillan MD Hematocrit (Bld) [Volume fraction] 36.5 % Low 40.7-50.3 [facility] Comment on above: Performed By: #### L ACTIC #### [address] [place], [facility]83 Retail Salesworker: Ramiro Santillan MD Hemoglobin (Bld) [Mass/Vol] 13.0 g/dL Normal 13.0-17.0 [facility] Comment on above: Performed By: #### L ACTIC #### [facility] [address] [place], [place] [phone] Retail Salesworker: Ramiro Santillan MD Immature granulocytes/100 WBC (Bld) 0 % Normal 0 [facility] Comment on above: Performed By: #### L ACTIC #### [facility] [address] [place], [place] [phone] Retail Salesworker: Ramiro Santillan MD Lymphocytes (Bld) [#/Vol] 1.95 10*3/uL Normal 1.10-3.70 [facility] Comment on above: Performed By: #### L ACTIC #### [address] [place], [place] [phone] Retail Salesworker: Ramiro Santillan MD Lymphocytes/100 WBC (Bld) 23 % Low 24-43 [facility] Comment on above: Performed By: #### L ACTIC #### [facility] [address] [place] [address] Dr[place], [place] [phone] Retail Salesworker: Ramiro Santillan MD MCH (RBC) [Entitic mass] 29.6 pg Normal 25.2-33.5 [facility] Comment on above: Performed By: #### L ACTIC #### [address] [place], [place] [phone] Retail Salesworker: Ramiro Santillan MD MCHC (RBC) [Mass/Vol] 35.6 g/dL High 28.4-34.[address] [facility] Comment on above: Performed By: #### L ACTIC #### [address] [place], [place] [phone] Retail Salesworker: Ramiro Santillan MD MCV (RBC) [Entitic vol] 83.1 fL Normal 82.6-102.9 [facility] Comment on above: Performed By: #### L ACTIC #### [facility] [address] [place] [address] Dr[address] [place], [place] [phone] Retail Salesworker: Ramiro Santillan MD Monocytes (Bld) [#/Vol] 0.54 10*3/uL Normal 0.10-1.20 [facility] Comment on above: Performed By: #### L ACTIC #### [facility] [address] [place] [address] Retail Salesworker: Ramiro Santillan MD Monocytes/100 WBC (Bld) 6 % Normal 3-12 [facility] Comment on above: Performed By: #### L ACTIC #### [facility] [address] [place], [place] [phone] Retail Salesworker: Ramiro Santillan MD Neutrophil (Seg) 68 % High 36-65 [facility] Comment on above: Performed By: #### L ACTIC #### [facility] [address] [place], [place] [phone] Retail Salesworker: Ramiro Santillan MD NRBC Automated 0.0 per 100 WBC Normal 0.0 [facility] Comment on above: Performed By: #### L ACTIC #### [facility] [address] [place], [place] [phone] Retail Salesworker: Ramiro Santillan MD Platelet mean volume (Bld) [Entitic vol] 10.4 fL Normal 8.1-13.5 [facility] Comment on above: Performed By: #### L ACTIC #### [facility] [address] [place], [place] [phone] Retail Salesworker: Ramiro Santillan MD Platelets (Bld) [#/Vol] 212 10*3/uL Normal 138-453 [facility] Comment on above: Performed By: #### L ACTIC #### [facility] [address] [place], [place] [phone] Retail Salesworker: Ramiro Santillan MD RBC (Bld) [#/Vol] 4.39 10*6/uL Normal 4.21-5.77 [facility] Comment on above: Performed By: #### L ACTIC #### [facility] [address] [place], [place] [phone] Retail Salesworker: Ramiro Santillan MD WBC (Bld) [#/Vol] 8.6 10*3/uL Normal 3.5-11.3 [facility] Comment on above: Performed By: #### L ACTIC #### [facility] [address] [place], [place] [phone] Retail Salesworker: Ramiro Santillan MD CTA HEAD NECK W [...] Daniel Ramos MD 01/18/24 Final result Normal [facility] CTA Head vessels and Neck ve ssels W contrast Karri 01-18-2024 1. No evidence of arterial stenosis or occlusion in the head or neck. 2. No acute intracranial abnormality. 3. Sphenoid sinus disease. [facility] RIS CONSOLIDATED EXAMINATION: CTA OF THE [...] acute intracranial abnormality. 3. Sphenoid sinus disease. [facility] Radiology Study observation (narrative) [facility] CTA Head vessels and Neck ve ssels W contrast IVOrdered By: Daniel Ramos on 01-18-2024 [facility] Work Phone: Glucose, Whole Bloodon 01-17 Glucose [Mass/Vol] 232 mg/dL High 74 - 100 mg/dL [facility] Interpretation and review of laboratory results Abnormal [facility] Glucose [Mass/Vol] 232 mg/dL High 74-100 [facility] Glucose [Mass/Vol] 230 mg/dL High 74 - 100 mg/dL [facility] Interpretation and review of laboratory results Abnormal [facility] Glucose [Mass/Vol] 230 mg/dL High 74-100 [facility] Hepatic Function Panelon Albumin [Mass/Vol] 3.9 g/dL 3.5 - 5.2 g/dL [facility] Albumin/Globulin [Mass ratio] 1.3 {ratio} 1.0 - 2.5 [facility] ALP [Catalytic activity/Vol] 105 U/L 40 - 129 U/L [facility] ALT [Catalytic activity/Vol] 18 U/L 5 - 41 U/L [facility] AST [Catalytic activity/Vol] 16 U/L NINF - 40 U/L [facility] Bilirubin [Mass/Vol] 0.2 mg/dL Low 0.3 - 1 .2 mg/dL [facility] Bilirubin.direct [Mass/Vol] mg/dL NINF - 0.3 mg/dL [facility] Bilirubin.indirect [Mass/Vol] Can not be calculated 0.0 - 1.0 mg/dL [facility] Protein [Mass/Vol] 7.0 g/dL 6.4 - 8.3 g/dL [facility] Lactic Acidon 01-18-2024 Interpretation and review of laboratory results Abnormal [facility] Lactate (BldV) [Moles/Vol] 2.8 mmol/L High 0.5 - 2.2 mmol/L [facility] Lactate [Moles/Vol] 2.8 mmol/L High 0.5-2.2 [facility] Comment on above: Performed By: #### L ACTIC #### [facility] [address] [place], [place] [phone] Retail Salesworker: Ramiro Santillan MD Liver Profileon 01-18-2024 Albumin [Mass/Vol] 3.9 g/dL Normal 3.5-5.2 [facility] Comment on above: Performed By: #### L ACTIC #### [facility] [address] [place], [place] [phone] Retail Salesworker: Ramiro Santillan MD Albumin/Glob Ratio 1.3 Normal 1.0-2.5 [facility] Comment on above: Performed By: #### L ACTIC #### [facility] [address] [place], [place] [phone] Retail Salesworker: Ramiro Santillan MD Alkaline Phos 105 U/L Normal 40-129 [facility] Comment on above: Performed By: #### L ACTIC #### [facility] [address] [place], [place] [phone] Retail Salesworker: Ramiro Santillan MD ALT [Catalytic activity/Vol] 18 U/L Normal 5-41 [facility] Comment on above: Performed By: #### L ACTIC #### [facility] [address] [place], [place] [phone] Retail Salesworker: Ramiro Santillan MD AST [Catalytic activity/Vol] 16 U/L Normal <40 [facility] Comment on above: Performed By: #### L ACTIC #### [facility] [address] [place] [address] Retail Salesworker: Ramiro Santillan MD Bilirubin [Mass/Vol] 0.2 mg/dL Low 0.3-1.2 [facility] Comment on above: Performed By: #### L ACTIC #### [facility] [address] [place], [place] [phone] Retail Salesworker: Ramiro Santillan MD Bilirubin, Indirect Can not be calculated Normal 0.0-1 .0 [facility] Comment on above: Performed By: #### L ACTIC #### [facility] [address] [place], [place] [phone] Retail Salesworker: Ramiro Santillan MD Bilirubin.indirect [Mass/Vol] mg/dL Normal <0.3 [facility] Comment on above: Performed By: #### L ACTIC #### [facility] [address] [place], [place] [phone] Retail Salesworker: Ramiro Santillan MD Protein [Mass/Vol] 7.0 g/dL Normal 6.4-8.3 [facility] Comment on above: Performed By: #### L ACTIC #### [facility] [address] [place], [place] [phone] Retail Salesworker: Ramiro Santillan MD Magnesiumon 01-18-2024 Magnesium [Mass/Vol] 2.2 mg/dL 1.6 - 2 .6 mg/dL [facility] Magnesium [Mass/Vol] 2.2 mg/dL Normal 1.6-2.6 [facility] Comment on above: Performed By: #### L ACTIC #### [facility] [address] [place], [place] [phone] Retail Salesworker: Ramiro Santillan MD No Panel Informationon 01-17 Interpretation and review of laboratory results Abnormal [facility] Troponinon 01-18-2024 Interpretation and review of laboratory results Abnormal [facility] Troponin I.cardiac High sensitivity method [Mass/Vol] 48 ng/L High 0 - 22 ng/L [facility] Comment on above: High Sensitivity Tro ponin values cannot be compared with other Troponin methodologies. [facility] Troponin, High Sens 48 ng/L High 0-22 [facility] Comment on above: Result Comment: High Sensitivity Troponin values cannot be compared with other Troponin methodologies. Performed By: #### L ACTIC #### [facility] [address] [place] [address] Retail Salesworker: Ramiro Santillan MD HSV 1,2 DNA PCRon 09-26-2023 HSV 1 DNA Negative Normal [facility] Comment on above: Result Comment: Refe rence range: Negative Performed By: #### L HSV #### Testing performed at [facility] HSV 2 DNA Negative Normal [facility] Comment on above: Result Comment: Refe rence range: Negative (NOTE) This test was developed and its performance characteristics determined by [employer]. It has not been cleared or approved by the U.S. Food and Drug Administration. The FDA has determined that such clearance or approval is not necessary. This test is used for clinical purposes. It should not be regarded as investigational or research. PERFORMED AT [facility] Performed By: #### L HSV #### Testing performed at [facility] CBCon 09-24-2023 ABSOLUTE BAS 0.0 10*3/uL Normal 0.0-0.2 [facility] ABSOLUTE EOS 0.1 10*3/uL Normal 0.0-0.7 [facility] ABSOLUTE NEUTROPHIL COUNT 12.9 10*3/uL High 1.4-6.5 [facility] Basophils/100 WBC (Bld) 0.1 % Normal 0.0-2.0 [facility] DTYPE AUTO DIFF Normal [facility] Eosinophils/100 WBC (Bld) 0.5 % Normal 0.0-11.0 [facility] Lymphocytes (Bld) [#/Vol] 1.0 10*3/uL Low 1.2-3.4 [facility] Lymphocytes/100 WBC (Bld) 6.3 % Low 20.0-55.0 [facility] Monocytes (Bld) [#/Vol] 1.2 10*3/uL High 0.0-0.7 [facility] Monocytes/100 WBC (Bld) 7.9 % Normal 0.0-10.0 [facility] Neutrophils/100 WBC (Bld) 85.2 % High 37.0-75.0 [facility] Erythrocyte distribution width (RBC) [Ratio] 14.2 % Normal 11.5-14.5 [facility] Hematocrit (Bld) [Volume fraction] 34.1 % Low 42.0-52.0 [facility] Hemoglobin (Bld) [Mass/Vol] 11.4 g/dL Low 14.0-18.0 [facility] MCH (RBC) [Entitic mass] 29.0 pg Normal 26.0-35.0 [facility] MCHC (RBC) [Mass/Vol] 33.4 g/dL Normal 27.0-37.0 [facility] MCV (RBC) [Entitic vol] 86.7 fL Normal 80.0-100.0 [facility] Platelet mean volume (Bld) [Entitic vol] 8.8 fL Normal 7.4-11.0 [facility] Platelets (Bld) [#/Vol] 161 10*3/uL Normal 130-400 [facility] RBC (Bld) [#/Vol] 3.94 10*6/uL Low 4.0-6.1 [facility] WBC (Bld) [#/Vol] 15.2 10*3/uL High 3.6-11.0 [facility] CBC, EDIF, PLATELETon 2022 ABSOLUTE BASOPHIL COUNT 0.0 10*3/uL 0.0 - 0.2 10*3/uL [facility] Basophils/100 WBC (Bld) 0.1 % 0.0 - 2.0 % [facility] Differential cell count method Nom (Bld) AUTO DIFF % [facility] Eosinophils (Bld) [#/Vol] 0.1 10*3/uL 0.0 - 0.7 10*3/uL [facility] Eosinophils/100 WBC (Bld) 0.5 % 0.0 - 11.0 % [facility] Erythrocyte distribution width (RBC) [Ratio] 14.2 % 11.5 - 14.5 % [facility] Hematocrit (Bld) [Volume fraction] 34.1 % Low 42.0 - 52.0 % [facility] Hemoglobin (Bld) [Mass/Vol] 11.4 g/dL Low [facility] Interpretation and review of laboratory results Abnormal [facility] Lymphocytes (Bld) [#/Vol] 1.0 10*3/uL Low 1.2 - 3.4 10*3/uL [facility] Lymphocytes/100 WBC (Bld) 6.3 % Low 20.0 - 55.0 % [facility] MCH (RBC) [Entitic mass] 29.0 pg 26.0 - 35.0 PG [facility] MCHC (RBC) [Mass/Vol] 33.4 g/dL [facility] MCV (RBC) [Entitic vol] 86.7 fL [facility] Monocytes (Bld) [#/Vol] 1.2 10*3/uL High 0.0 - 0.7 10*3/uL [facility] Monocytes/100 WBC (Bld) 7.9 % 0.0 - 10.0 % [facility] Neutrophils (Bld) [#/Vol] 12.9 10*3/uL High 1.4 - 6.5 10*3/uL [facility] Neutrophils/100 WBC (Bld) 85.2 % High 37.0 - 75.0 % [facility] Platelet mean volume (Bld) [Entitic vol] 8.8 fL [facility] Platelets (Bld) [#/Vol] 161 10*3/uL 130 - 400 10*3/uL [facility] RBC (Bld) [#/Vol] 3.94 10*6/uL Low 4.0 - 6.1 10*6/uL [facility] WBC (Bld) [#/Vol] 15.2 10*3/uL High 3.6 - 11.0 10*3/uL [facility] CKon 09-24-2023 CK [Catalytic activity/Vol] 631 U/L High [facility] CPKon 09-24-2023 CPK 631 IU/L High 55-170 [facility] GLUCOSE (POC DEVICE)on 09-24 GLUCOSE, POINT OF CARE 203 High [facility] Interpretation and review of laboratory results Abnormal [facility] Operator [id number] [facility] GLUCOSE, POINT OF CARE 183 [facility] Interpretation and review of laboratory results Abnormal [facility] Operator [id number] [facility] GLUCOSE, POINT OF CARE 109 [facility] Interpretation and review of laboratory results Abnormal [facility] Operator [id number] [facility] GLUCOSE, POINT OF CARE 168 [facility] Interpretation and review of laboratory results Abnormal [facility] Operator [id number] [facility] MAGNESIUMon 09-24-2023 Magnesium [Mass/Vol] 2.0 mg/dL Normal 1.6-2.3 [facility] Magnesium [Mass/Vol] 2.0 mg/dL [place] No Panel Informationon 09-24 Interpretation and review of laboratory results Abnormal [facility] POCT GLUCOSEon 09-24-2023 Glucose [Mass/Vol] 203 mg/dL High 70-100 [facility] RESHIPPING CLERK [id number] Normal [facility] Glucose [Mass/Vol] 183 mg/dL High 70-100 [facility] RESHIPPING CLERK [id number] Normal [facility] Glucose [Mass/Vol] 109 mg/dL High 70-100 [facility] RESHIPPING CLERK [id number] Normal [facility] Glucose [Mass/Vol] 168 mg/dL High 70-100 [facility] RESHIPPING CLERK [id number] Normal [facility] RENAL FUNCTION PANELon 09-24 Albumin [Mass/Vol] 3.2 G/dl Low 3.5 - 5.0 G/dl [facility] Calcium [Mass/Vol] 8.0 mg/dL Low [facility] Chloride [Moles/Vol] 111 mmol/L [facility] Comment on above: Please note: Triglyc eride levels of 600mg/dL or higher may positively bias chloride results by approximately 2.1 mmol CO2 [Moles/Vol] 24 mmol/L [facility] Creatinine [Mass/Vol] 1.10 mg/dL [facility] GFR COMMENT Average GFR for 40-4 9 years old = 99. [facility] Comment on above: Chronic Kidney disea se, GFR = <60. Kidney failure, GFR = <15. The GFR estimate is not adjusted for extreme body surface area or acute process, nor has it been validated for women or ethnic groups other than and . GFR/1.73 sq M.predicted among blacks MDRD (S/P/Bld) [Vol rate/Area] 92 mL/min/{1.73_m2} ml/min/1.73s q.m [facility] GFR/1.73 sq M.predicted among non-blacks MDRD (S/P/Bld) [Vol rate/Area] 76 mL/min/{1.73_m2} ml/min/1.73s q.m [facility] Glucose post fast [Mass/Vol] 106 mg/dL High [facility] Comment on above: NORMAL <100 mg/dL PREDIABETES 101-126 mg/dL DIABETES 126 mg/dL or higher Phosphate [Mass/Vol] 2.9 mg/dL [place] Potassium [Moles/Vol] 3.8 mmol/L [facility] Sodium [Moles/Vol] 138 mmol/L [facility] Urea nitrogen [Mass/Vol] 17 mg/dL [facility] RENAL PANEL,FASTINGon 2022 ALBUMIN 3.2 G/dl Low 3.5-5.0 [facility] Calcium [Mass/Vol] 8.0 mg/dL Low 8.4-10.2 [facility] Chloride [Moles/Vol] 111 mmol/L High 98-107 [facility] Comment on above: Result Comment: Juana spencer note: Triglyceride levels of 600mg/dL or higher may positively bias chloride results by approximately 2.1 mmol CO2 [Moles/Vol] 24 mmol/L Normal 22-30 [facility] Creatinine [Mass/Vol] 1.10 mg/dL Normal 0.7-1.2 [facility] EST. GFR, 92 ml/min/1.73sq.m [facility] EST. GFR,Non 76 ml/min/1.73sq.m [facility] GFR Information Average GFR for 40-4 9 years old = 99. Normal [facility] Comment on above: Result Comment: Customer Relations Advisor alfreda Kidney disease, GFR = <60. Kidney failure, GFR = <15. The GFR estimate is not adjusted for extreme body surface area or acute process, nor has it been validated for women or ethnic groups other than and . Glucose [Mass/Vol] 106 mg/dL High 70-100 [facility] Comment on above: Result Comment: NORMAL <100 mg/dL PREDIABETES 101-126 mg/dL DIABETES 126 mg/dL or higher PHOSPHOROUS 2.9 MG/DL Normal 2.5-4.5 [facility] Potassium [Moles/Vol] 3.8 mmol/L Normal 3.5-5.1 [facility] Sodium [Moles/Vol] 138 mmol/L Normal 137-145 [facility] Urea nitrogen [Mass/Vol] 17 mg/dL Normal 7-20 [facility] B12 & FOLATEon 09-23-2023 Cobalamin (Vitamin B12) [Mass/Vol] 383 pg/mL 239 - 931 PG/ML [facility] Folate [Mass/Vol] 6.4 ng/mL [facility] B12 FOLATEon 09-23-2023 Cobalamin (Vitamin B12) [Mass/Vol] 383 pg/mL Normal 239-931 [facility] FOLATE 6.4 NG/ML Normal 2.56-20.0 [facility] CBCon 09-23-2023 ABSOLUTE BAS 0.0 10*3/uL Normal 0.0-0.2 [facility] ABSOLUTE EOS 0.0 10*3/uL Normal 0.0-0.7 [facility] ABSOLUTE NEUTROPHIL COUNT 12.1 10*3/uL High 1.4-6.5 [facility] Basophils/100 WBC (Bld) 0.1 % Normal 0.0-2.0 [facility] DTYPE AUTO DIFF Normal [facility] Eosinophils/100 WBC (Bld) 0.1 % Normal 0.0-11.0 [facility] Lymphocytes (Bld) [#/Vol] 0.8 10*3/uL Low 1.2-3.4 [facility] Lymphocytes/100 WBC (Bld) 6.0 % Low 20.0-55.0 [facility] Monocytes (Bld) [#/Vol] 1.1 10*3/uL High 0.0-0.7 [facility] Monocytes/100 WBC (Bld) 7.6 % Normal 0.0-10.0 [facility] Neutrophils/100 WBC (Bld) 86.2 % High 37.0-75.0 [facility] Erythrocyte distribution width (RBC) [Ratio] 13.9 % Normal 11.5-14.5 [facility] Hematocrit (Bld) [Volume fraction] 34.7 % Low 42.0-52.0 [facility] Hemoglobin (Bld) [Mass/Vol] 11.6 g/dL Low 14.0-18.0 [facility] MCH (RBC) [Entitic mass] 28.9 pg Normal 26.0-35.0 [facility] MCHC (RBC) [Mass/Vol] 33.4 g/dL Normal 27.0-37.0 [facility] MCV (RBC) [Entitic vol] 86.5 fL Normal 80.0-100.0 [facility] Platelet mean volume (Bld) [Entitic vol] 8.5 fL Normal 7.4-11.0 [facility] Platelets (Bld) [#/Vol] 167 10*3/uL Normal 130-400 [facility] RBC (Bld) [#/Vol] 4.01 10*6/uL Normal 4.0-6.1 [facility] WBC (Bld) [#/Vol] 14.1 10*3/uL High 3.6-11.0 [facility] CBC, EDIF, PLATELETon 2022 ABSOLUTE BASOPHIL COUNT 0.0 10*3/uL 0.0 - 0.2 10*3/uL [facility] Basophils/100 WBC (Bld) 0.1 % 0.0 - 2.0 % [facility] Differential cell count method Nom (Bld) AUTO DIFF % [facility] Eosinophils (Bld) [#/Vol] 0.0 10*3/uL 0.0 - 0.7 10*3/uL [facility] Eosinophils/100 WBC (Bld) 0.1 % 0.0 - 11.0 % [facility] Erythrocyte distribution width (RBC) [Ratio] 13.9 % 11.5 - 14.5 % [facility] Hematocrit (Bld) [Volume fraction] 34.7 % Low 42.0 - 52.0 % [facility] Hemoglobin (Bld) [Mass/Vol] 11.6 g/dL Low [facility] Interpretation and review of laboratory results Abnormal [facility] Lymphocytes (Bld) [#/Vol] 0.8 10*3/uL Low 1.2 - 3.4 10*3/uL [facility] Lymphocytes/100 WBC (Bld) 6.0 % Low 20.0 - 55.0 % [facility] MCH (RBC) [Entitic mass] 28.9 pg 26.0 - 35.0 PG [facility] MCHC (RBC) [Mass/Vol] 33.4 g/dL [facility] MCV (RBC) [Entitic vol] 86.5 fL [facility] Monocytes (Bld) [#/Vol] 1.1 10*3/uL High 0.0 - 0.7 10*3/uL [facility] Monocytes/100 WBC (Bld) 7.6 % 0.0 - 10.0 % [facility] Neutrophils (Bld) [#/Vol] 12.1 10*3/uL High 1.4 - 6.5 10*3/uL [facility] Neutrophils/100 WBC (Bld) 86.2 % High 37.0 - 75.0 % [facility] Platelet mean volume (Bld) [Entitic vol] 8.5 fL [facility] Platelets (Bld) [#/Vol] 167 10*3/uL 130 - 400 10*3/uL [facility] RBC (Bld) [#/Vol] 4.01 10*6/uL 4.0 - 6.1 10*6/uL [facility] WBC (Bld) [#/Vol] 14.1 10*3/uL High 3.6 - 11.0 10*3/uL [facility] CKon 09-23-2023 CK [Catalytic activity/Vol] 787 U/L High [facility] CPKon 09-23-2023 CPK 787 IU/L High 55-170 [facility] Cardiac echo study Procedure on 09-23-2023 [...] Doppler, and color-flow Echocardiogram Imaging system used: [employer] 2D Dimensions IVSd 1.4 cm M: 0.6-1.0 [...] ms MVA PHT 4.40 cm2 MV Dec Fisher 515.21 cm/s2 MV Decel. Time 176.32 (160-240 [...] Doppler, and color-flow Echocardiogram Imaging system used: [employer] Dimensions IVSd 1.4 cm M: 0.6-1.0LVEF (Torres's)72.70 % M: 52 - 72 PWd 1.1 cm M: 0.6 - 1.0EF AP4-a2DQ73.36 % LVDd 4.0 cm M: 4.2 - 5.8EF AP2-a2DQ71.42 % LVDs 2.96 cm M: 2.5 - 4.0EF BP-a2DQ72.70 % Aortic Root 2.98 cm M: 3.1 - 3.0GXWXO82 mL Aortic Root Index1.4 cm/t4UHODA67.15 mL M: 62 - 150 Ascending Aorta 3.09 cm M: 2.6 - 3.4LV Volume Index44.30 mL/m2 M: 34 - 74 Ascending Aorta Index: 1.5 cm/m2LA Jcsgjn42.0 mL Left Atrium 2.40 cm M: 3.0 [...] Ratio1.32MV PHT50.00 ms MVA PHT4.40 cm2MV Dec Fisher 515.21 cm/s2 MV Decel. Exei619.32 (160-240 ms) Tricuspid Valve TR P. Velocity2.17 m/sRAP Estimate3 mmHg RVSP21.75 mmHgTR maxPG 18.75 mmHg [facility] Radiology Study observation (narrative) [facility] Procedure Ordered By: Javid Colindres on 09-23-2023 [employer] Work Phone: EEG AWAKE, ROUTINEon 023 Cecil Yu MD 09/23/2023 3:30 PM Interpreting physician: Cecil Yu M.D. This is a routine EEG performed on a 47 y.o. year-old male using standard 10-20 lead placement and a [employer] system. All data was obtained digitally and [...] activity consistent with a moderate diffuse encephalopathy. [facility] EEG AWAKE, ROUTINEOrdered By : Cecil Yu on 09-23-2023 [facility] Work Phone: GLUCOSE (POC DEVICE)on 09-23 GLUCOSE, POINT OF CARE 149 High [facility] Interpretation and review of laboratory results Abnormal [facility] Operator [id number] [facility] GLUCOSE, POINT OF CARE 149 High [facility] Interpretation and review of laboratory results Abnormal [facility] Operator [id number] [facility] GLUCOSE, POINT OF CARE 136 High [facility] Interpretation and review of laboratory results Abnormal [facility] Operator [id number] [facility] GLUCOSE, POINT OF CARE 91 [facility] Operator [id number] [facility] GLUCOSE, POINT OF CARE 85 [facility] [employer] Man [id number] [facility] GLUCOSE, POINT OF CARE 86 [facility] Operator [id number] [facility] MAGNESIUMon 09-23-2023 Magnesium [Mass/Vol] 1.9 mg/dL Normal 1.6-2.3 [facility] Magnesium [Mass/Vol] 1.9 mg/dL [place] No Panel Informationon 09-23 Interpretation and review of laboratory results Abnormal [facility] POCT GLUCOSEon 09-23-2023 Glucose [Mass/Vol] 149 mg/dL High 70-100 [facility] RESHIPPING CLERK [id number] Normal [facility] Glucose [Mass/Vol] 149 mg/dL High 70-100 [facility] RESHIPPING CLERK [id number] Normal [facility] Glucose [Mass/Vol] 136 mg/dL High 70-100 [facility] RESHIPPING CLERK [id number] Normal [facility] Glucose [Mass/Vol] 91 mg/dL Normal 70-100 [facility] RESHIPPING CLERK [id number] Normal [facility] Glucose [Mass/Vol] 85 mg/dL Normal 70-100 [facility] RESHIPPING CLERK [id number] Normal [facility] Glucose [Mass/Vol] 86 mg/dL Normal 70-100 [facility] RESHIPPING CLERK [id number] Normal [facility] Glucose [Mass/Vol] 79 mg/dL Normal 70-100 [facility] Glucose [Mass/Vol] 89 mg/dL Normal 70-100 [facility] RESHIPPING CLERK [id number] Normal [facility] RESHIPPING CLERK [id number] Normal [facility] RENAL FUNCTION PANELon 09-23 Albumin [Mass/Vol] 3.5 G/dl 3.5 - 5.0 G/dl [facility] Calcium [Mass/Vol] 8.1 mg/dL Low [facility] Chloride [Moles/Vol] 112 mmol/L [facility] [place] Comment on above: Please note: Triglyc eride levels of 600mg/dL or higher may positively bias chloride results by approximately 2.1 mmol CO2 [Moles/Vol] 23 mmol/L [facility] Creatinine [Mass/Vol] 1.10 mg/dL [facility] GFR COMMENT Average GFR for 40-4 9 years old = 99. [facility] Comment on above: Chronic Kidney disea se, GFR = <60. Kidney failure, GFR = <15. The GFR estimate is not adjusted for extreme body surface area or acute process, nor has it been validated for women or ethnic groups other than and . GFR/1.73 sq M.predicted among blacks MDRD (S/P/Bld) [Vol rate/Area] 92 mL/min/{1.73_m2} ml/min/1.73s q.m [facility] GFR/1.73 sq M.predicted among non-blacks MDRD (S/P/Bld) [Vol rate/Area] 76 mL/min/{1.73_m2} ml/min/1.73s q.m [facility] Glucose post fast [Mass/Vol] 68 mg/dL Low [facility] Comment on above: NORMAL <100 mg/dL PREDIABETES 101-126 mg/dL DIABETES 126 mg/dL or higher Phosphate [Mass/Vol] 2.6 mg/dL [place] Potassium [Moles/Vol] 3.6 mmol/L [facility] Sodium [Moles/Vol] 140 mmol/L [facility] Urea nitrogen [Mass/Vol] 22 mg/dL High [facility] RENAL PANEL,FASTINGon 2022 ALBUMIN 3.5 G/dl Normal 3.5-5.0 [facility] Calcium [Mass/Vol] 8.1 mg/dL Low 8.4-10.2 [facility] Chloride [Moles/Vol] 112 mmol/L High 98-107 [facility] Comment on above: Result Comment: Juana spencer note: Triglyceride levels of 600mg/dL or higher may positively bias chloride results by approximately 2.1 mmol CO2 [Moles/Vol] 23 mmol/L Normal 22-30 [facility] Creatinine [Mass/Vol] 1.10 mg/dL Normal 0.7-1.2 [facility] EST. GFR, 92 ml/min/1.73sq.m [facility] EST. GFR,Non 76 ml/min/1.73sq.m [facility] GFR Information Average GFR for 40-4 9 years old = 99. Normal [facility] Comment on above: Result Comment: Customer Relations Advisor alfreda Kidney disease, GFR = <60. Kidney failure, GFR = <15. The GFR estimate is not adjusted for extreme body surface area or acute process, nor has it been validated for women or ethnic groups other than and . Glucose [Mass/Vol] 68 mg/dL Low 70-100 [facility] Comment on above: Result Comment: NORMAL <100 mg/dL PREDIABETES 101-126 mg/dL DIABETES 126 mg/dL or higher PHOSPHOROUS 2.6 MG/DL Normal 2.5-4.5 [facility] Potassium [Moles/Vol] 3.6 mmol/L Normal 3.5-5.1 [facility] Sodium [Moles/Vol] 140 mmol/L Normal 137-145 [facility] Urea nitrogen [Mass/Vol] 22 mg/dL High 7-20 [facility] URINE CULTUREon 09-23-2023 Bacteria identified Cx Nom (Unsp spec) NO GROWTH 2 DAYS [facility] Comment on above: Testing performed at [place] [id number] Service comment (Unsp spec) [Interp] 09/23/2023 [facility] Comment on above: FINAL SPECIMEN DESCRIPTION URINE - OTHER A [facility] AMMONIAon 09-22-2023 Ammonia (P) [Moles/Vol] 42 umol/L High - [facility] Ammonia (P) [Mass/Vol] 42 ug/dL High [facility] Interpretation and review of laboratory results Abnormal [facility] ARTERIAL BLOOD GASon 023 OJDY'S TEST NOT APPLICABLE Normal [facility] BASE DEFICIT 1.1 mEq/L Normal 0-2 [facility] cHCO3 (P,ST)C 23.5 mEq/L Normal 22-26 [facility] ctHb 12.2 g/dl Normal [facility] FCOHb 0.3 % Normal [facility] FMetHb 0.8 % Normal [facility] FO2Hb 97.8 % Normal [facility] O2 DEVICE VENT Normal [facility] PATIENT DIAGNOSIS RESPIRATORY FAILURE Normal [facility] PATIENT O2 SETTINGS 30% Normal [facility] pCO2, arterial 38 mmHg Normal 35-45 [facility] pH, arterial 7.40 Normal 7.350-7.450 [facility] pO2,arterial 150 mmHg High 80-100 [facility] SAMPLE SITE RIGHT BRACHIAL Normal [facility] sO2,arterial 98.9 % Normal 95-100 [facility] Arterial patency Wrist artery --pre arterial puncture NOT APPLICABLE [facility] Base deficit (BldV) [Moles/Vol] 1.1 [facility] Carboxyhemoglobin (Bld) [Mass fraction] 0.3 % [facility] CO2 (Bld) [Partial pressure] 38 mm[Hg] [facility] Diagnosis Narrative RESPIRATORY FAILURE [facility] HCO3 (Bld) [Moles/Vol] 23.5 mmol/L [facility] Hemoglobin (Bld) [Mass/Vol] 12.2 g/dL [facility] Interpretation and review of laboratory results Abnormal [facility] Methemoglobin (BldC) [Mass fraction] 0.8 % [facility] O2 Device VENT [facility] Oxygen (Bld) [Partial pressure] 150 mm[Hg] High [facility] Oxyhemoglobin (Bld) [Mass fraction] 97.8 % [facility] PATIENT PO2 SETTINGS 30% [place] pH (Bld) 7.40 [pH] 7.350 - 7.450 [facility] Specimen site Narrative RIGHT BRACHIAL [facility] C REACTIVE PROTEINon 023 CRP [Mass/Vol] 18.1 mg/L High 0-10 [facility] CRP [Mass/Vol] 18.1 mg/L High 0 - 10 MG/L [facility] CBCon 09-22-2023 ABSOLUTE BAS 0.0 10*3/uL Normal 0.0-0.2 [facility] ABSOLUTE EOS 0.1 10*3/uL Normal 0.0-0.7 [facility] ABSOLUTE NEUTROPHIL COUNT 8.5 10*3/uL High 1.4-6.5 [facility] Basophils/100 WBC (Bld) 0.3 % Normal 0.0-2.0 [facility] DTYPE AUTO DIFF Normal [facility] Eosinophils/100 WBC (Bld) 0.5 % Normal 0.0-11.0 [facility] Lymphocytes (Bld) [#/Vol] 1.4 10*3/uL Normal 1.2-3.4 [facility] Lymphocytes/100 WBC (Bld) 12.4 % Low 20.0-55.0 [facility] Monocytes (Bld) [#/Vol] 1.0 10*3/uL High 0.0-0.7 [facility] Monocytes/100 WBC (Bld) 9.1 % Normal 0.0-10.0 [facility] Neutrophils/100 WBC (Bld) 77.7 % High 37.0-75.0 [facility] Erythrocyte distribution width (RBC) [Ratio] 14.1 % Normal 11.5-14.5 [facility] Hematocrit (Bld) [Volume fraction] 38.0 % Low 42.0-52.0 [facility] Comment on above: Result Comment: IV F LUIDS Hemoglobin (Bld) [Mass/Vol] 12.7 g/dL Low 14.0-18.0 [facility] Comment on above: Result Comment: iv f luids MCH (RBC) [Entitic mass] 28.9 pg Normal 26.0-35.0 [facility] MCHC (RBC) [Mass/Vol] 33.4 g/dL Normal 27.0-37.0 [facility] MCV (RBC) [Entitic vol] 86.7 fL Normal 80.0-100.0 [facility] Platelet mean volume (Bld) [Entitic vol] 8.5 fL Normal 7.4-11.0 [facility] Platelets (Bld) [#/Vol] 151 10*3/uL Normal 130-400 [facility] RBC (Bld) [#/Vol] 4.39 10*6/uL Normal 4.0-6.1 [facility] WBC (Bld) [#/Vol] 11.0 10*3/uL Normal 3.6-11.0 [facility] CBC, EDIF, PLATELETon 2022 ABSOLUTE BASOPHIL COUNT 0.0 10*3/uL 0.0 - 0.2 10*3/uL [facility] Basophils/100 WBC (Bld) 0.3 % 0.0 - 2.0 % [facility] Differential cell count method Nom (Bld) AUTO DIFF % [facility] Eosinophils (Bld) [#/Vol] 0.1 10*3/uL 0.0 - 0.7 10*3/uL [facility] Eosinophils/100 WBC (Bld) 0.5 % 0.0 - 11.0 % [facility] Erythrocyte distribution width (RBC) [Ratio] 14.1 % 11.5 - 14.5 % [facility] Hematocrit (Bld) [Volume fraction] 38.0 % Low 42.0 - 52.0 % [facility] Comment on above: IV FLUIDS Hemoglobin (Bld) [Mass/Vol] 12.7 g/dL Low [facility] Comment on above: iv fluids Interpretation and review of laboratory results Abnormal [facility] Lymphocytes (Bld) [#/Vol] 1.4 10*3/uL 1.2 - 3.4 10*3/uL [facility] Lymphocytes/100 WBC (Bld) 12.4 % Low 20.0 - 55.0 % [facility] MCH (RBC) [Entitic mass] 28.9 pg 26.0 - 35.0 PG [facility] MCHC (RBC) [Mass/Vol] 33.4 g/dL [facility] MCV (RBC) [Entitic vol] 86.7 fL [facility] Monocytes (Bld) [#/Vol] 1.0 10*3/uL High 0.0 - 0.7 10*3/uL [facility] Monocytes/100 WBC (Bld) 9.1 % 0.0 - 10.0 % [facility] Neutrophils (Bld) [#/Vol] 8.5 10*3/uL High 1.4 - 6.5 10*3/uL [facility] Neutrophils/100 WBC (Bld) 77.7 % High 37.0 - 75.0 % [facility] Platelet mean volume (Bld) [Entitic vol] 8.5 fL [facility] Platelets (Bld) [#/Vol] 151 10*3/uL 130 - 400 10*3/uL [facility] RBC (Bld) [#/Vol] 4.39 10*6/uL 4.0 - 6.1 10*6/uL [facility] WBC (Bld) [#/Vol] 11.0 10*3/uL 3.6 - 11.0 10*3/uL [facility] CKon 09-22-2023 CK [Catalytic activity/Vol] 282 U/L High [facility] CMP FASTINGon 09-22-2023 A:G RATIO 1.3 RATIO Normal 1.3-2.2 [facility] ALBUMIN 3.4 G/dl Low 3.5-5.0 [facility] ALP [Catalytic activity/Vol] 76 U/L Normal 38-126 [facility] ALT [Catalytic activity/Vol] 25 U/L Normal <50 [facility] AST [Catalytic activity/Vol] 35 U/L Normal 17-59 [facility] Bilirubin [Mass/Vol] 0.4 mg/dL Normal 0.2-1.3 [facility] Calcium [Mass/Vol] 8.2 mg/dL Low 8.4-10.2 [facility] Chloride [Moles/Vol] 109 mmol/L High 98-107 [facility] Comment on above: Result Comment: Juana spencer note: Triglyceride levels of 600mg/dL or higher may positively bias chloride results by approximately 2.1 mmol CO2 [Moles/Vol] 23 mmol/L Normal 22-30 [facility] Creatinine [Mass/Vol] 1.40 mg/dL High 0.7-1.2 [facility] EST. GFR, 69 ml/min/1.73sq.m [facility] EST. GFR,Non 57 ml/min/1.73sq.m [facility] GFR Information Average GFR for 40-4 9 years old = 99. Normal [facility] Comment on above: Result Comment: Customer Relations Advisor alfreda Kidney disease, GFR = <60. Kidney failure, GFR = <15. The GFR estimate is not adjusted for extreme body surface area or acute process, nor has it been validated for women or ethnic groups other than and . Glucose [Mass/Vol] 72 mg/dL Normal 70-100 [facility] Comment on above: Result Comment: NORMAL <100 mg/dL PREDIABETES 101-126 mg/dL DIABETES 126 mg/dL or higher Potassium [Moles/Vol] 4.2 mmol/L Normal 3.5-5.1 [facility] Protein [Mass/Vol] 6.0 g/dL Low 6.3-8.2 [facility] Sodium [Moles/Vol] 138 mmol/L Normal 137-145 [facility] Urea nitrogen [Mass/Vol] 35 mg/dL High 7-20 [facility] COMPREHENSIVE METABOLIC PANE Jt 09-22-2023 Albumin [Mass/Vol] 3.4 G/dl Low 3.5 - 5.0 G/dl [facility] Albumin/Globulin [Mass ratio] 1.3 {ratio} [facility] ALP [Catalytic activity/Vol] 76 U/L [facility] ALT [Catalytic activity/Vol] 25 U/L NINF [facility] AST [Catalytic activity/Vol] 35 U/L [facility] Bilirubin [Mass/Vol] 0.4 mg/dL [place] Calcium [Mass/Vol] 8.2 mg/dL Low [facility] [facility] Chlor[facility] [Moles/Vol] 109 mmol/L [facility] [place] Comment on above: Please note: Triglyc eride levels of 600mg/dL or higher may positively bias chloride results by approximately 2.1 mmol CO2 [Moles/Vol] 23 mmol/L [facility] Creatinine [Mass/Vol] 1.40 mg/dL High [facility] GFR COMMENT Average GFR for 40-4 9 years old = 99. [facility] Comment on above: Chronic Kidney disea se, GFR = <60. Kidney failure, GFR = <15. The GFR estimate is not adjusted for extreme body surface area or acute process, nor has it been validated for women or ethnic groups other than and . GFR/1.73 sq M.predicted among blacks MDRD (S/P/Bld) [Vol rate/Area] 69 mL/min/{1.73_m2} ml/min/1.73s q.m [facility] GFR/1.73 sq M.predicted among non-blacks MDRD (S/P/Bld) [Vol rate/Area] 57 mL/min/{1.73_m2} ml/min/1.73s q.m [facility] Glucose post fast [Mass/Vol] 72 mg/dL [facility] Comment on above: NORMAL <100 mg/dL PREDIABETES 101-126 mg/dL DIABETES 126 mg/dL or higher Interpretation and review of laboratory results Abnormal [facility] Potassium [Moles/Vol] 4.2 mmol/L [facility] Protein [Mass/Vol] 6.0 g/dL Low [facility] Sodium [Moles/Vol] 138 mmol/L [facility] Urea nitrogen [Mass/Vol] 35 mg/dL High [facility] CPKon 09-22-2023 CPK 282 IU/L High 55-170 [facility] ESRon 09-22-2023 ESR (Bld) [Velocity] 21 mm/h High 0-15 [facility] GLUCOSE (POC DEVICE)on 09-22 GLUCOSE, POINT OF CARE [address] [facility] GLUCOSE, POINT OF CARE [address] [facility] [employer] [place] [phone] [facility] [id number] [facility] GLUCOSE, POINT OF CARE [address] [facility] Jet Man [id number] [facility] GLUCOSE, POINT OF CARE [address] [facility] Jet Man [phone] [facility] GLUCOSE, POINT OF CARE [address] [facility] Interpretation and review of laboratory results Abnormal [facility] Operator [id number] [facility] GLUCOSE, POINT OF CARE [address] [facility] [employer] [place] [id number] [facility] GLUCOSE, POINT OF CARE [address] [facility] GLUCOSE, POINT OF CARE [address] [facility] [employer] [facility] Interpretation and review of laboratory results Abnormal [facility] [employer] [id number] [facility] [place] [id number] [facility] HEMOGLOBIN A1Con 09-22-2023 Glucose [Mass/Vol] 280 mg/dL Normal [facility] HbA1c (Bld) [Mass fraction] 11.4 % High 0-6 [facility] Comment on above: Result Comment: NORMAL <5.7% PREDIABETES 5.7-6.4% DIABETES 6.5% OR HIGHER Glucose [Mass/Vol] 280 mg/dL [facility] HbA1c (Bld) [Mass fraction] 11.4 % High 0 - 6 % [facility] Comment on above: NORMAL <5.7% PREDIABETES 5.7-6.4% DIABETES 6.5% OR HIGHER Interpretation and review of laboratory results Abnormal [facility] MAGNESIUMon 09-22-2023 Magnesium [Mass/Vol] 2.0 mg/dL Normal 1.6-2.3 [facility] Magnesium [Mass/Vol] 2.0 mg/dL [facility] MR Brain WO contraston 09-22 IMPRESSION: [...] Major vascular flow voids are preserved. OTHER: [id number] sphenoid sinus mucosal inflammatory change, + polypoidal [...] Major vascular flow voids are preserved. OTHER: [id number]-[id number] sphenoid sinus mucosal inflammatory change, + polypoidal features on the right. __ IMPRESSION IMPRESSION: No infarct, mass or hemorrhage [facility] Radiology Study observation (narrative) [facility] MR Brain WO contrastOrdered By: Eduin De León on 09-22-2023 [facility] Work Phone: MRI BRAIN WITHOUT CONTRASTon 09-22-2023 [...] Major vascular flow voids are preserved. OTHER: Wqzx-bf-hxkfeiuk sphenoid sinus mucosal inflammatory change, + polypoidal features on the right. __ IMPRESSION: No infarct, mass or hemorrhage Normal [facility] MRSA SCREENon 09-22-2023 MRSA DNA MEETA+probe Ql (Unsp spec) Negative Normal NEGATIVE [facility] STAPH AUREUS SCREEN Positive Abnormal NEGATIVE [facility] Comment on above: Result Comment: TEST ING PERFORMED BY PCR No Panel Informationon 09-22 [facility] Interpretation and review of laboratory results Abnormal [facility] POCT GLUCOSEon 09-22-2023 Glucose [Mass/Vol] 98 mg/dL Normal 70-100 [facility] RESHIPPING CLERK [id number] Normal [facility] Glucose [Mass/Vol] 73 mg/dL Normal 70-100 [facility] RESHIPPING CLERK [id number] Normal [facility] Glucose [Mass/Vol] 67 mg/dL Low 70-100 [facility] RESHIPPING CLERK [id number] Normal [facility] Glucose [Mass/Vol] 80 mg/dL Normal 70-100 [facility] RESHIPPING CLERK [id number] Normal [facility] Glucose [Mass/Vol] 95 mg/dL Normal 70-100 [facility] Glucose [Mass/Vol] 109 mg/dL High 70-100 [facility] RESHIPPING CLERK [id number] Normal [facility] RESHIPPING CLERK [id number] Normal [facility] Glucose [Mass/Vol] 158 mg/dL High 70-100 [facility] RESHIPPING CLERK [id number] Normal [facility] PROCALCITONINon 12-07-2023 PROCALCITONIN 0.08 ng/mL Normal 0.00-0.25 [facility] Comment on above: Result Comment: PCT Interpretation Less than 0.10 ng/mL, antibiotic therapy strongly discouraged. 0.10-0.25 ng/mL, antibiotic therapy discouraged. 0.25-0.50 ng/mL, antibiotic therapy encouraged. Greater than 0.50 ng/mL, antibiotic therapy strongly encouraged. PROCALCITONIN 0.08 ng/mL 0.00 - 0.25 ng/mL [facility] Comment on above: PCT Interpretation Less than 0.10 ng/mL, antibiotic therapy strongly discouraged. 0.10-0.25 ng/mL, antibiotic therapy discouraged. 0.25-0.50 ng/mL, antibiotic therapy encouraged. Greater than 0.50 ng/mL, antibiotic therapy strongly encouraged. [facility] RAPID TOX SCREEN,URINEon AMPHETAMINE Negative Normal NEGATIVE [facility] Comment on above: Result Comment: <500 ng/ml CUTOFF BARBITURATES Negative Normal NEGATIVE [facility] Comment on above: Result Comment: <200 ng/ml CUTOFF BENZODIAZEPINES Positive Abnormal NEGATIVE [facility] Comment on above: Result Comment: <200 ng/ml CUTOFF *Unconfirmed Screening Result* Unconfirmed screening results are to be used only for medical treatment purposes. BUPRENORPHINE Negative Normal NEGATIVE [facility] Comment on above: Result Comment: <12. 5 ng/ml CUTOFF CANNABINOIDS Negative Normal NEGATIVE [facility] Comment on above: Result Comment: <50 ng/ml CUTOFF COCAINE Negative Normal NEGATIVE [facility] Comment on above: Result Comment: <150 ng/ml CUTOFF FENTANYL Negative Normal NEGATIVE [facility] Comment on above: Result Comment: 20 n g/mL CUTOFF *Unconfirmed Screening Result* Unconfirmed screening results are to be used only for medical treatment purposes. This test has not been approved by the FDA. MDMA Positive Abnormal NEGATIVE [facility] Comment on above: Result Comment: <100 0 ng/ml CUTOFF METHADONE Negative Normal NEGATIVE [facility] Comment on above: Result Comment: Meth adone Metabolite <100 ng/ml CUTOFF METHAMPHETAMINE Negative Normal NEGATIVE [facility] Comment on above: Result Comment: <500 ng/ml CUTOFF OPIATES Negative Normal NEGATIVE [facility] Comment on above: Result Comment: <300 ng/ml CUTOFF OXYCODONE Negative Normal NEGATIVE [facility] Comment on above: Result Comment: <100 ng/ml CUTOFF TRICYCLIC ANTIDEPRESSANTS Negative Normal NEGATIVE [facility] Comment on above: Result Comment: <100 0 ng/ml CUTOFF RESPIRATORY SYNCYTIAL VIRUS PCRon 09-22-2023 RSV Ag IA Ql (Unsp spec) Negative NEGATIVE [facility] RSVon 09-22-2023 RSV Negative Normal NEGATIVE [facility] SEDIMENTATION RATE, AUTOMATE Don 09-22-2023 ESR (Bld) [Velocity] 21 mm/h [facility] Interpretation and review of laboratory results Abnormal [facility] TOXICOLOGY DRUG SCREEN, URIN Harpreet 09-22-2023 Amphetamine (U) [Mass/Vol] Negative NEGATIVE NG/ML [facility] Comment on above: <500 ng/ml CUTOFF Barbiturates Screen Ql (U) Negative NEGATIVE NG/ML [facility] Comment on above: <200 ng/ml CUTOFF Benzodiazepines Ql (U) Positive Abnormal NEGAT RAJAN NG/ML [facility] Comment on above: <200 ng/ml CUTOFF *Unconfirmed Screening Result* Unconfirmed screening results are to be used only for medical treatment purposes. Benzoylecgonine Ql (U) Negative NEGAT RAJAN NG/ML [facility] Comment on above: <150 ng/ml CUTOFF Buprenorphine Ql (U) Negative NEGATIV E NG/ML [facility] Comment on above: <12.5 ng/ml CUTOFF Cannabinoids Screen Ql (U) Negative NEGATIVE NG/ML [facility] Comment on above: <50 ng/ml CUTOFF Fentanyl Negative NEGATIVE NG/ML [facility] Comment on above: 20 ng/mL CUTOFF *Unconfirmed Screening Result* Unconfirmed screening results are to be used only for medical treatment purposes. This test has not been approved by the FDA. Interpretation and review of laboratory results Abnormal [facility] Methadone Screen Ql (U) Negative NEGATIVE NG/ML [facility] Comment on above: Methadone Metabolite <100 ng/ml CUTOFF Methamphetamine (U) [Mass/Vol] Negative NEGATIVE NG/ML [facility] [employer] [facility] Comment on above: <500 ng/ml CUTOFF Methylenedioxymethamph etamine Ql (Unsp spec) Positive Abnormal NEGATIVE NG/ML [facility] Comment on above: <1000 ng/ml CUTOFF Opiates Screen Ql (U) Negative NEGATI VE NG/ML [facility] Comment on above: <300 ng/ml CUTOFF oxyCODONE Ql (U) Negative NEGATIVE NG/ML [facility] Comment on above: <100 ng/ml CUTOFF Tricyclic antidepressants Screen Ql (U) Negative NEGATIVE NG/ML [facility] Comment on above: <1000 ng/ml CUTOFF [facility] TROPONIN I, HIGH SENSITIVITY on 09-22-2023 TROPONIN I, HIGH SENSITIVITY 28 pg/mL High 0-20 [facility] Comment on above: Result Comment: Indeterminant: >12 to 100 pg/mL female >20 to 100 pg/mL male Indicative of myocardial injury. Serial sampling is recommended, a change of greater than or equal to 20 pg/mL is indicative of acute coronary syndrome. Interpretation and review of laboratory results Abnormal [facility] TROPONIN I, HIGH SENSITIVITY 28 pg/mL High 0 - 20 pg/mL [facility] Comment on above: Indeterminant: >12 to 100 pg/mL female >20 to 100 pg/mL male Indicative of myocardial injury. Serial sampling is recommended, a change of greater than or equal to 20 pg/mL is indicative of acute coronary syndrome. [facility] TSH W/FT4 REFLEXon 3 TSH Qn 0.594 m[IU]/L [facility] TSH,REFLEX FREE T4on 023 TSH,REFLEX FREE T4 0.594 uIU/ML Normal 0.46-4.68 [facility] VENTILATOR SETTINGSon 2022 fiO2 30% [facility] PEEP 5 cmH2O [facility] PRESSURE SUPPORT 5 cmH2O Normal [facility] VENT SETTING PS [facility] BIPAP AndOr CPAP setting Ventilator PS [facility] Oxygen/Inspired gas setting [Volume Fraction] Ventilator 30% % [facility] Positive end expiratory pressure setting Ventilator 5 cmH2O [facility] Pressure support setting Ventilator 5 cmH2O [facility] ALCOHOLon 09-21-2023 Ethanol [Mass/Vol] mg/dL Normal 0-10 [facility] Comment on above: Result Comment: INTOXICATION >80 MG/DL FATAL >400 MG/DL ALCOHOL (ETHANOL),BLOODon Ethanol [Mass/Vol] mg/dL [facility] Comment on above: INTOXICATION >80 MG/DL FATAL >400 MG/DL ARTERIAL BLOOD GASon 023 BASE EXCESS 1.3 mEq/L Normal 0-2 [facility] cHCO3 (P,ST)C 25.9 mEq/L Normal 22-26 [facility] ctHb 14.1 g/dl Normal [facility] FCOHb 0.6 % Normal [facility] FMetHb 0.5 % Normal [facility] FO2Hb 98.7 % Normal [facility] pCO2, arterial 40 mmHg Normal 35-45 [facility] pH, arterial 7.42 Normal 7.350-7.450 [facility] pO2,arterial 492 mmHg High 80-100 [facility] sO2,arterial 99.9 % Normal 95-100 [facility] Base excess Calc (BldV) [Moles/Vol] 1.3 mmol/L [facility] Carboxyhemoglobin (Bld) [Mass fraction] 0.6 % [facility] CO2 (Bld) [Partial pressure] 40 mm[Hg] [facility] HCO3 (Bld) [Moles/Vol] 25.9 mmol/L [facility] Hemoglobin (Bld) [Mass/Vol] 14.1 g/dL [facility] Interpretation and review of laboratory results Abnormal [facility] Methemoglobin (BldC) [Mass fraction] 0.5 % [facility] Oxygen (Bld) [Partial pressure] 492 mm[Hg] High [facility] Oxyhemoglobin (Bld) [Mass fraction] 98.7 % [facility] pH (Bld) 7.42 [pH] 7.350 - 7.450 [facility] BLOOD CULTUREon 09-21-2023 Bacteria identified Cx Nom (Bld) SPECIMEN DESCRIPTION PERIPHERAL BLOOD DRAW SPECIAL REQUESTS LEFT HAND CULTURE NO GROWTH 5 DAYS * Result Note: Testing performed at [place], [place] [address] * REPORT STATUS 09/26/2023 * Result Note: FINAL * Normal [facility] Comment on above: Performed By: #### L HSV #### Testing performed at [facility] Bacteria identified Cx Nom (Bld) SPECIMEN DESCRIPTION PERIPHERAL BLOOD DRAW SPECIAL REQUESTS LEFT ARM CULTURE NO GROWTH 5 DAYS * Result Note: Testing performed at [place], [place] [address] * REPORT STATUS 09/26/2023 * Result Note: FINAL * Normal [facility] Comment on above: Performed By: #### L HSV #### Testing performed at [facility] CBCon 09-21-2023 ABSOLUTE BAS 0.0 10*3/uL Normal 0.0-0.2 [facility] ABSOLUTE EOS 0.0 10*3/uL Normal 0.0-0.7 [facility] ABSOLUTE NEUTROPHIL COUNT 9.8 10*3/uL High 1.4-6.5 [facility] Basophils/100 WBC (Bld) 0.2 % Normal 0.0-2.0 [facility] DTYPE AUTO DIFF Normal [facility] Eosinophils/100 WBC (Bld) 0.2 % Normal 0.0-11.0 [facility] Lymphocytes (Bld) [#/Vol] 0.6 10*3/uL Low 1.2-3.4 [facility] Lymphocytes/100 WBC (Bld) 5.6 % Low 20.0-55.0 [facility] Monocytes (Bld) [#/Vol] 0.3 10*3/uL Normal 0.0-0.7 [facility] Monocytes/100 WBC (Bld) 3.0 % Normal 0.0-10.0 [facility] Neutrophils/100 WBC (Bld) 91.0 % High 37.0-75.0 [facility] Erythrocyte distribution width (RBC) [Ratio] 14.3 % Normal 11.5-14.5 [facility] Hematocrit (Bld) [Volume fraction] 42.6 % Normal 42.0-52.0 [facility] Hemoglobin (Bld) [Mass/Vol] 14.5 g/dL Normal 14.0-18.0 [facility] MCH (RBC) [Entitic mass] 29.1 pg Normal 26.0-35.0 [facility] MCHC (RBC) [Mass/Vol] 34.0 g/dL Normal 27.0-37.0 [facility] MCV (RBC) [Entitic vol] 85.6 fL Normal 80.0-100.0 [facility] Platelet mean volume (Bld) [Entitic vol] 8.5 fL Normal 7.4-11.0 [facility] Platelets (Bld) [#/Vol] 176 10*3/uL Normal 130-400 [facility] RBC (Bld) [#/Vol] 4.98 10*6/uL Normal 4.0-6.1 [facility] WBC (Bld) [#/Vol] 10.8 10*3/uL Normal 3.6-11.0 [facility] CBC, EDIF, PLATELETon 2022 ABSOLUTE BASOPHIL COUNT 0.0 10*3/uL 0.0 - 0.2 10*3/uL [facility] Basophils/100 WBC (Bld) 0.2 % 0.0 - 2.0 % [facility] Differential cell count method Nom (Bld) AUTO DIFF % [facility] Eosinophils (Bld) [#/Vol] 0.0 10*3/uL 0.0 - 0.7 10*3/uL [facility] Eosinophils/100 WBC (Bld) 0.2 % 0.0 - 11.0 % [facility] Erythrocyte distribution width (RBC) [Ratio] 14.3 % 11.5 - 14.5 % [facility] Hematocrit (Bld) [Volume fraction] 42.6 % 42.0 - 52.0 % [facility] Hemoglobin (Bld) [Mass/Vol] 14.5 g/dL [facility] Interpretation and review of laboratory results Abnormal [facility] Lymphocytes (Bld) [#/Vol] 0.6 10*3/uL Low 1.2 - 3.4 10*3/uL [facility] Lymphocytes/100 WBC (Bld) 5.6 % Low 20.0 - 55.0 % [facility] MCH (RBC) [Entitic mass] 29.1 pg 26.0 - 35.0 PG [facility] MCHC (RBC) [Mass/Vol] 34.0 g/dL [facility] MCV (RBC) [Entitic vol] 85.6 fL [facility] Monocytes (Bld) [#/Vol] 0.3 10*3/uL 0.0 - 0.7 10*3/uL [facility] Monocytes/100 WBC (Bld) 3.0 % 0.0 - 10.0 % [facility] Neutrophils (Bld) [#/Vol] 9.8 10*3/uL High 1.4 - 6.5 10*3/uL [facility] Neutrophils/100 WBC (Bld) 91.0 % High 37.0 - 75.0 % [facility] Platelet mean volume (Bld) [Entitic vol] 8.5 fL [facility] Platelets (Bld) [#/Vol] 176 10*3/uL 130 - 400 10*3/uL [facility] RBC (Bld) [#/Vol] 4.98 10*6/uL 4.0 - 6.1 10*6/uL [facility] WBC (Bld) [#/Vol] 10.8 10*3/uL 3.6 - 11.0 10*3/uL [facility] CMP FASTINGon 09-21-2023 A:G RATIO 1.5 RATIO Normal 1.3-2.2 [facility] ALBUMIN 4.4 G/dl Normal 3.5-5.0 [facility] ALP [Catalytic activity/Vol] 103 U/L Normal 38-126 [facility] ALT [Catalytic activity/Vol] 34 U/L Normal <50 [facility] AST [Catalytic activity/Vol] 39 U/L Normal 17-59 [facility] Bilirubin [Mass/Vol] 0.6 mg/dL Normal 0.2-1.3 [facility] Calcium [Mass/Vol] 9.0 mg/dL Normal 8.4-10.2 [facility] Chloride [Moles/Vol] 103 mmol/L Normal 98-107 [facility] Comment on above: Result Comment: Juana spencer note: Triglyceride levels of 600mg/dL or higher may positively bias chloride results by approximately 2.1 mmol CO2 [Moles/Vol] 24 mmol/L Normal 22-30 [facility] Creatinine [Mass/Vol] 1.30 mg/dL High 0.7-1.2 [facility] GFR Information Unable to calculate GFR due to inappropriate age/gender/creatinine value. Normal [facility] Glucose [Mass/Vol] 245 mg/dL High 70-100 [facility] Comment on above: Result Comment: NORMAL <100 mg/dL PREDIABETES 101-126 mg/dL DIABETES 126 mg/dL or higher Potassium [Moles/Vol] 4.0 mmol/L Normal 3.5-5.1 [facility] Protein [Mass/Vol] 7.3 g/dL Normal 6.3-8.2 [facility] Sodium [Moles/Vol] 135 mmol/L Low 137-145 [facility] Urea nitrogen [Mass/Vol] 37 mg/dL High 7-20 [facility] COMPREHENSIVE METABOLIC PANE Jt 09-21-2023 Albumin [Mass/Vol] 4.4 G/dl 3.5 - 5.0 G/dl [facility] Albumin/Globulin [Mass ratio] 1.5 {ratio} [facility] ALP [Catalytic activity/Vol] 103 U/L [facility] ALT [Catalytic activity/Vol] 34 U/L NINF [facility] AST [Catalytic activity/Vol] 39 U/L [facility] Bilirubin [Mass/Vol] 0.6 mg/dL [place] Calcium [Mass/Vol] 9.0 mg/dL [facility] Chloride [Moles/Vol] 103 mmol/L [place] Comment on above: Please note: Triglyc eride levels of 600mg/dL or higher may positively bias chloride results by approximately 2.1 mmol CO2 [Moles/Vol] 24 mmol/L [facility] Creatinine [Mass/Vol] 1.30 mg/dL High [facility] GFR COMMENT Unable to calculate GFR due to inappropriate age/gender/creatinine value. [facility] Glucose post fast [Mass/Vol] 245 mg/dL High [facility] Comment on above: NORMAL <100 mg/dL PREDIABETES 101-126 mg/dL DIABETES 126 mg/dL or higher Interpretation and review of laboratory results Abnormal [facility] Potassium [Moles/Vol] 4.0 mmol/L [facility] Protein [Mass/Vol] 7.3 g/dL [facility] Sodium [Moles/Vol] 135 mmol/L Low [facility] Urea nitrogen [Mass/Vol] 37 mg/dL High [facility] CT HEAD WITHOUT CONTRASTon 1 11-22-2022 CT [...] intracranial hemorrhage or other acute finding. Normal [facility] CT Head WO contraston 2022 IMPRESSION: [...] of intracranial hemorrhage or other acute finding. [facility] Radiology Study observation (narrative) [facility] CT Head WO contrastOrdered B y: Kris Cherry on 09-21-2023 [facility] Work Phone: CT SPINE CERVICAL WITHOUT CO [...] osseous abnormality. Degenerative changes detailed above. Normal [facility] GLUCOSE (POC DEVICE)on 09-21 GLUCOSE, POINT OF CARE [address] [facility] Interpretation and review of laboratory results Abnormal [facility] Operator [id number] [facility] GLUCOSE, POINT OF CARE [address] [facility] Interpretation and review of laboratory results Abnormal [facility] Operator [phone] [facility] LACTATE, BLOODon 09-21-2023 Interpretation and review of laboratory results Abnormal [facility] Lactate [Moles/Vol] 2.1 mmol/L Critically high 0.7 - 2.0 mmol/L [facility] Comment on above: PLEASE REPEAT INITIA L CRITICAL IN 3 HOURS IF ED OR INPATIENT SEPSIS PATIENT CALLED TO AND READ BACK BY SIRENA HERNANDEZ IN ER 12..23 1706 BY MAUREEN [facility] LACTATE,BLOODon 09-21-2023 Lactate [Moles/Vol] 2.1 mmol/L Critically high 0.7-2.0 [facility] Comment on above: Result Comment: PLEA SE REPEAT INITIAL CRITICAL IN 3 HOURS IF ED OR INPATIENT SEPSIS PATIENT CALLED TO AND READ BACK BY SIRENA HERNANDEZ IN ER 12.6.23 1706 BY MAUREEN MAGNESIUMon 09-21-2023 Magnesium [Mass/Vol] 2.0 mg/dL Normal 1.6-2.3 [facility] Magnesium [Mass/Vol] 2.0 mg/dL [facility] No Panel Informationon 09-21 Interpretation and review of laboratory results Abnormal [facility] POCT GLUCOSEon 09-21-2023 Glucose [Mass/Vol] 232 mg/dL High 70-100 [facility] RESHIPPING CLERK [id number] Normal [facility] Portable XR Chest Views APon 09-21-2023 [...] the endotracheal tube. No acute cardiopulmonary abnormality. [facility] Radiology Study observation (narrative) [facility] Portable XR Chest Views APOr dered By: Deven Junior on 09-21-2023 [facility] Work Phone: RAPID TOX SCREEN,URINEon AMPHETAMINE Negative Normal NEGATIVE [facility] Comment on above: Result Comment: <500 ng/ml CUTOFF BARBITURATES Negative Normal NEGATIVE [facility] Comment on above: Result Comment: <200 ng/ml CUTOFF BENZODIAZEPINES Positive Abnormal NEGATIVE [facility] Comment on above: Result Comment: <200 ng/ml CUTOFF *Unconfirmed Screening Result* Unconfirmed screening results are to be used only for medical treatment purposes. BUPRENORPHINE Negative Normal NEGATIVE [facility] Comment on above: Result Comment: <12. 5 ng/ml CUTOFF CANNABINOIDS Negative Normal NEGATIVE [facility] [facility] Comment on above: Result Comment: <50 ng/ml CUTOFF COCAINE Negative Normal NEGATIVE [facility] Comment on above: Result Comment: <150 ng/ml CUTOFF FENTANYL Negative Normal NEGATIVE [facility] Comment on above: Result Comment: 20 n g/mL CUTOFF *Unconfirmed Screening Result* Unconfirmed screening results are to be used only for medical treatment purposes. This test has not been approved by the FDA. MDMA Positive Abnormal NEGATIVE [facility] Comment on above: Result Comment: <100 0 ng/ml CUTOFF METHADONE Negative Normal NEGATIVE [facility] Comment on above: Result Comment: Meth adone Metabolite <100 ng/ml CUTOFF METHAMPHETAMINE Negative Normal NEGATIVE [facility] Comment on above: Result Comment: <500 ng/ml CUTOFF OPIATES Negative Normal NEGATIVE [facility] Comment on above: Result Comment: <300 ng/ml CUTOFF OXYCODONE Negative Normal NEGATIVE [facility] Comment on above: Result Comment: <100 ng/ml CUTOFF TRICYCLIC ANTIDEPRESSANTS Negative Normal NEGATIVE [facility] Comment on above: Result Comment: <100 0 ng/ml CUTOFF SCREEN: MRSA ONLY, NARES (IS OLATION SCREEN)on 09-21-2023 Interpretation and review of laboratory results Abnormal [facility] MRSA isol Org specific cx Ql (Nose) Negative NEGATIVE [facility] STAPHYOCOCCUS AUREUS BY PCR Positive Abnormal NEGATIVE [facility] Comment on above: TESTING PERFORMED BY PCR [facility] TOXICOLOGY DRUG SCREEN, URIN Harpreet 09-21-2023 Amphetamine (U) [Mass/Vol] Negative NEGATIVE NG/ML [facility] Comment on above: <500 ng/ml CUTOFF Barbiturates Screen Ql (U) Negative NEGATIVE NG/ML [facility] Comment on above: <200 ng/ml CUTOFF Benzodiazepines Ql (U) Positive Abnormal NEGAT RAJAN NG/ML [facility] Comment on above: <200 ng/ml CUTOFF *Unconfirmed Screening Result* Unconfirmed screening results are to be used only for medical treatment purposes. Benzoylecgonine Ql (U) Negative NEGAT RAJAN NG/ML [facility] Comment on above: <150 ng/ml CUTOFF Buprenorphine Ql (U) Negative NEGATIV E NG/ML [facility] Comment on above: <12.5 ng/ml CUTOFF Cannabinoids Screen Ql (U) Negative NEGATIVE NG/ML [facility] Comment on above: <50 ng/ml CUTOFF Fentanyl Negative NEGATIVE NG/ML [facility] Comment on above: 20 ng/mL CUTOFF *Unconfirmed Screening Result* Unconfirmed screening results are to be used only for medical treatment purposes. This test has not been approved by the FDA. Interpretation and review of laboratory results Abnormal [facility] Methadone Screen Ql (U) Negative NEGATIVE NG/ML [facility] Comment on above: Methadone Metabolite <100 ng/ml CUTOFF Methamphetamine (U) [Mass/Vol] Negative NEGATIVE NG/ML [facility] Comment on above: <500 ng/ml CUTOFF Methylenedioxymethamph etamine Ql (Unsp spec) Positive Abnormal NEGATIVE NG/ML [facility] Comment on above: <1000 ng/ml CUTOFF Opiates Screen Ql (U) Negative NEGATI VE NG/ML [facility] Comment on above: <300 ng/ml CUTOFF oxyCODONE Ql (U) Negative NEGATIVE NG/ML [facility] Comment on above: <100 ng/ml CUTOFF Tricyclic antidepressants Screen Ql (U) Negative NEGATIVE NG/ML [facility] Comment on above: <1000 ng/ml CUTOFF [facility] URINALYSIS, MACROon 09-21-20 23 Bilirubin Ql (U) Negative NEGATIVE [facility] Clarity (U) CLEAR CLEAR [facility] Color (U) YELLOW YELLOW [facility] Glucose Test strip (U) [Mass/Vol] 500 mg/dl Abnormal NEGATIVE [facility] Hemoglobin Ql (U) MODERATE Abnormal NEGATIVE [facility] Ketones (U) [Mass/Vol] 15 mg/dL Abnormal NEGATIVE [facility] Leukocyte esterase Test strip Ql (U) Negative NEGATIVE [facility] Nitrite Ql (U) Negative NEGATIVE [facility] pH (U) 5.5 [pH] 5.0 - 7.0 [facility] Protein Ql (U) >300 Abnormal NEGATIVE mg/dl [facility] Specific gravity (U) [Rel density] >1.030 High 1.010 - 1.025 [facility] Urobilinogen (U) [Mass/Vol] 0.2 mg/dL [facility] URINE CULTUREon 09-21-2023 Bacteria identified Cx Nom (U) SPECIMEN DESCRIPTION URINE - OTHER CULTURE NO GROWTH 2 DAYS * Result Note: Testing performed at [place], [place] [address] * REPORT STATUS 09/23/2023 * Result Note: FINAL * Normal [facility] Comment on above: Performed By: #### A URNC #### Testing performed at [facility] [address] [place] [address] Testing performed at [facility] [address] [place] [address] URINE MACROSCOPICon 09-21-20 23 Bilirubin Ql (U) Negative Normal NEGATIVE [facility] Clarity (U) CLEAR Normal CLEAR [facility] Color (U) YELLOW Normal YELLOW [facility] Glucose Ql (U) 500 mg/dl Abnormal NEGATIVE [facility] pH (U) 5.5 [pH] Normal 5.0-7.0 [facility] URINE HEMOGLOBIN MODERATE Abnormal NEGATIVE [facility] URINE KETONE 15 mg/dl Abnormal NEGATIVE [facility] URINE LEUKOTEST Negative Normal NEGATIVE [facility] URINE NITRATES Negative Normal NEGATIVE [facility] URINE SPEC GRAVITY >1.030 High 1.010-1.025 [facility] URINE TOTAL PROTEIN >300 Abnormal NEGATIVE [facility] Urobilinogen Qn (U) 0.2 {Rachana'U}/dL Normal 0.2-1.0 [facility] URINE MICROSCOPICon 09-21-20 23 BACTERIA TRACE Abnormal NEGATIVE [facility] CASTS NONE Normal NONE [facility] CRYSTAL NONE Normal NONE [facility] Epithelial cells LM Ql (Urine sed) NONE Normal [facility] Mucus Ql (Urine sed) Negative Normal NEGATIVE [facility] URINE COMMENT REFLEX CULTURE PER ESTABLISHED CRITERIA. Normal [facility] URINE RBC'S 1 TO 5 Normal NEGATIVE [facility] URINE WBC'S Negative Normal NEGATIVE [facility] Bacteria LM.HPF (Urine sed) [#/Area] TRACE Abnormal NEGATIVE [facility] Casts LM.LPF (Urine sed) [#/Area] NONE NONE /LPF [facility] Crystals LM Nom (Urine sed) NONE NONE [facility] Epithelial cells LM Ql (Urine sed) NONE /HPF [facility] Mucus Ql (Urine sed) Negative NEGATIVE [place] RBC LM.HPF (Urine sed) [#/Area] 1 TO 5 NEGATIVE /HPF [facility] Urine sediment comments LM Everardo (Urine sed) REFLEX CULTURE PER ESTABLISHED CRITERIA. [facility] WBC LM.HPF (Urine sed) [#/Area] Negative NEGATIVE /HPF [facility] VENTILATOR SETTINGSon 2022 F RATE 16 breaths/minute Normal [facility] fiO2 100 % Normal [facility] PEEP 5 cmH2O Normal [facility] VENT SETTING ACVC Normal [facility] [place] 500 cc Normal [facility] BIPAP AndOr CPAP setting [facility]/Inspired gas setting [Volume Fraction] Ventilator 100 % [facility] Positive end expiratory pressure setting Ventilator 5 cmH2O [facility] Respiratory rate 16 /min breaths/min u te [facility] Tidal volume setting Ventilator 500 cc [facility] XR CHEST AP PORTABLEon 09-21 XR CHEST AP PORTABLE EXAM: XR CHEST AP PORTABLE REASON FOR EXAM: ET placement TECHNIQUE: Single frontal view COMPARISON: None FINDINGS: Endotracheal tube terminates 3.4 cm above the ravindra. No pneumothorax, pleural effusion, or focal consolidation. The cardiac silhouette is not enlarged. IMPRESSION: Appropriate positioning of the endotracheal tube. No acute cardiopulmonary abnormality. Normal [facility] Diabetic Office/Clinic Noteo n 05-13-2023 Diabetic [...] repeat rule of 15's. -Continue to eat 7927-9189 calories per day. Best to consume calories [...] blood sugar readings and call these to [phone] in 2 weeks for myself to review. Call sooner if you're experiencing frequent blood sugars <60 or >350. -Repeat A1c and appointment with myself in 3 months or sooner if needed Jarod Aviles CNP [facility] [address], [facility] [place] [address] Time Spent with the Patient I have [...] 0.5 mg, Subcutaneous, Weekly, 11 refills [place], See Instructions, 11 refills Toujeo Max SoloStar 300 units/mL subcutaneous solution, See Instructions, 11 refills Allergies No Known Medication Allergies Social History Alcohol Never Tobacco N (more content not included)... Normal [facility] Diabetic Office/Clinic Noteo n 02-11-2023 Diabetic [...] care Yes HTN, taking lisinopril No CAD, ND, CVA, CHF or PVD Statin indicated, taking [...] heart attack, stroke and limb amputation -Eat 7224-6059 calories per day or less using a [...] plate starchy vegetables or grains. Recommend using [employer] or similar type pat to track daily [...] range > (more content not included)... Normal [facility] CBC AUTO DIFFon 12-28-2022 BASO # 0.0 103/ul Normal 0.0-0.1 [facility] Comment on above: Performed By: #### P OCGLUC #### [facility] [address] [place] [address] Dr. Karina Heath Basophils/100 WBC (Bld) 0.6 % Normal 0.2-2.0 [facility] Comment on above: Performed By: #### P OCGLUC #### [facility] [address] [place] [address] Dr. Karina Heath EO # 0.1 103/ul Normal 0.0-0.7 [facility] Comment on above: Performed By: #### P OCGLUC #### [facility] [address] [place] [address] Dr. Karina Heath Eosinophils/100 WBC (Bld) 1.1 % Normal 0.9-7.0 [facility] Comment on above: Performed By: #### P OCGLUC #### [facility] [address] [place] [address] Dr. Karina Heath Erythrocyte distribution width (RBC) [Ratio] 13.5 % Normal 11.0-15.0 [facility] Comment on above: Performed By: #### P OCGLUC #### [facility] [address] [place] [address] Dr. Karina Heath Hematocrit (Bld) [Volume fraction] 35.2 % Critically low 42.0-54.0 [facility] Comment on above: Performed By: #### P OCGLUC #### [facility] [address] [place] [address] Dr. Karina Heath Hemoglobin (Bld) [Mass/Vol] 12.0 g/dL Critically low 14.0-18.0 [facility] Comment on above: Performed By: #### P OCGLUC #### [facility] [address] [place] [address] Dr. Karina Heath IG # 0.02 10e3/ul Normal 0.00-0.03 [facility] Comment on above: Performed By: #### P OCGLUC #### [facility] [address] [address] [address] Karina Heath IG % 0.3 % Normal 0.0-0.5 [facility] Comment on above: Performed By: #### P OCGLUC #### [facility] [address] [place] [address] Dr. Karina Heath LYMPH # 1.7 103/ul Normal 1.2-3.8 [facility] Comment on above: Performed By: #### P OCGLUC #### [facility] [address] [place] [address] Dr. aKrina Heath Lymphocytes/100 WBC (Bld) 26.3 % Normal 20.5-60.0 [facility] Comment on above: Performed By: #### P OCGLUC #### [facility] [address] [place] [address] Dr. Karina Heath MANUAL DIFF REQ NO Normal [facility] Comment on above: Performed By: #### P OCGLUC #### [facility] [address] [place] [address] Dr. Karina Heath MCH (RBC) [Entitic mass] 28.6 pg Normal 25.9-34.0 [facility] Comment on above: Performed By: #### P OCGLUC #### [facility] [address] [place] [address] Dr. Karina Heath MCHC (RBC) [Mass/Vol] 34.1 g/dL Normal 29.9-35.2 [facility] Comment on above: Performed By: #### P OCGLUC #### [facility] [address] [place] [address] Dr. Karina Heath MCV (RBC) [Entitic vol] 83.8 fL Normal 80.0-94.0 [facility] Comment on above: Performed By: #### P OCGLUC #### [facility] [address] [place] [address] Dr. Karina Heath MONO # 0.5 103/ul Normal 0.3-0.8 [facility] Comment on above: Performed By: #### P OCGLUC #### [facility] [address] [place] [address] Dr. Karina Heath Monocytes/100 WBC (Bld) 7.0 % Normal 1.7-12.0 [facility] Comment on above: Performed By: #### P OCGLUC #### [facility] [address] [place] [address] Dr. Karina Heath NEUT # 4.2 103/ul Normal 1.4-6.5 [facility] Comment on above: Performed By: #### P OCGLUC #### [facility] [address] [place] [address] Dr. Karina Heath Neutrophils/100 WBC (Bld) 64.7 % Normal 43.0-75.0 [facility] Comment on above: Performed By: #### P OCGLUC #### [facility] [address] [place] [address] Dr. Karina Heath Platelet mean volume (Bld) [Entitic vol] 10.3 fL Normal 9.5-13.5 [facility] Comment on above: Performed By: #### P OCGLUC #### [facility] [address] [place] [address] Dr. Karina eHath PLT 189 103/ul Normal 150-450 [facility] Comment on above: Performed By: #### P OCGLUC #### [facility] [address] [place] [address] Dr. Karina Heath RBC 4.20 106/ul Critically low 4.70-6.10 The [facility] Comment on above: Performed By: #### P OCGLUC #### [facility] [address] [place] [address] Dr. Karina Heath WBC 6.4 103/ul Normal 4.0-11.0 [facility] Comment on above: Performed By: #### P OCGLUC #### [facility] [address] [address] [address] Karina Heath ECHOCARDIO M/2D COMPLETEon 0 12-28-2022 ECHOCARDIO M/2D COMPLETE Patient: ORTIZ GORMAN Exam Date: 12/28/2022 : 1975 Gender:M Ordering : DR VINCENT WINTERS . Admission #: [id number] Family : Order #: [id number] CLICK HERE TO VIEW EXAM ECHOCARDIOGRAM REPORT [...] Sibley M.D. on 12/28/2022 at 17:50 Normal [facility] POINT OF CARE GLUCOSEon 12-15 Glucose [Mass/Vol] 229 mg/dL Critically high [address] [place] [address] Comment on above: Performed By: #### P OCGLUC #### [facility] [address] [address] [address] Karina Heath Glucose [Mass/Vol] 171 mg/dL Critically high [address] [place] [address] Comment on above: Performed By: #### C VDTBH #### [facility] [address] [address] [address] Karina Heath Glucose [Mass/Vol] 242 mg/dL Critically high [address] [place] [address] Comment on above: Performed By: #### C VDTBH #### [facility] [address] [address] [address] Karina Heath PROF 14(COMP METB)on 03-14-2 023 Albumin [Mass/Vol] 3.0 g/dL Critically low 3.4-5.0 Th e [facility] Comment on above: Performed By: #### P OCGLUC #### [facility] [address] [address] [address] Karina Heath Albumin/Globulin [Mass ratio] 0.9 {ratio} Normal [facility] Comment on above: Performed By: #### P OCGLUC #### [facility] [address] [address] [address] Karina Heath ALP [Catalytic activity/Vol] 79 U/L Normal 46-116 [facility] Comment on above: Performed By: #### P OCGLUC #### [facility] [address] [address] [address] Karina Heath ALT [Catalytic activity/Vol] 27 U/L Normal 16-63 [facility] Comment on above: Performed By: #### P OCGLUC #### [facility] [address] [address] [address] Karina Heath Anion gap [Moles/Vol] 9.4 mmol/L Normal [facility] Comment on above: Performed By: #### P OCGLUC #### [facility] [address] [place] [address] Dr. Karina Heath AST [Catalytic activity/Vol] 21 U/L Normal 15-37 [facility] Comment on above: Performed By: #### P OCGLUC #### [facility] [address] [place] [address] Dr. Karina Heath Bilirubin [Mass/Vol] 0.2 mg/dL Normal 0.2-1.0 [facility] Comment on above: Performed By: #### P OCGLUC #### [facility] [address] [address] [address] Karina Heath Calcium [Mass/Vol] 8.6 mg/dL Normal 8.5-10.1 [facility] Comment on above: Performed By: #### P OCGLUC #### [facility] [address] [address] [address] Karina Heath Chloride [Moles/Vol] 104 mmol/L Normal 98-107 [facility] Comment on above: Performed By: #### P OCGLUC #### [facility] [address] [address] [address] Karina Heath CO2 [Moles/Vol] 26.9 mmol/L Normal 21.0-32.0 [facility] Comment on above: Performed By: #### P OCGLUC #### [facility] [address] [address] [address] Karina Heath Creatinine [Mass/Vol] 0.95 mg/dL Normal 0.70-1.30 [facility] Comment on above: Performed By: #### P OCGLUC #### [facility] [address] [address] [address] Karina Heath EGFR-AF ZAMBIAN >60 Normal >=60 [facility] Comment on above: Performed By: #### P OCGLUC #### [facility] [address] [address] [address] Karina Heath EGFR-NON AF ZAMBIAN >60 Normal >=60 [facility] Comment on above: Performed By: #### P OCGLUC #### [facility] [address] [address] [address] Karina Heath Globulin (S) [Mass/Vol] 3.2 g/dL Normal [facility] Comment on above: Performed By: #### P OCGLUC #### [facility] [address] [address] [address] Karina Heath Glucose [Mass/Vol] 258 mg/dL Critically high 74-106 [facility] Comment on above: Performed By: #### P OCGLUC #### [facility] [address] [address] [address] Karina Heath Potassium [Moles/Vol] 3.3 mmol/L Critically low 3.5-5.1 [facility] Comment on above: Performed By: #### P OCGLUC #### [facility] [address] [address] [address] Karina Heath Protein [Mass/Vol] 6.2 g/dL Critically low 6.4-8.2 Th [facility] Comment on above: Performed By: #### P OCGLUC #### [facility] [address] [address] [address] Karina Heath Sodium [Moles/Vol] 137 mmol/L Normal 136-145 [facility] Comment on above: Performed By: #### P OCGLUC #### [facility] [address] [place] [address] Dr. Karina Heath Urea nitrogen [Mass/Vol] 16.0 mg/dL Normal 7.0-18.0 [facility] Comment on above: Performed By: #### P OCGLUC #### [facility] [address] [place] [address] Dr. Karina Heath Urea nitrogen/Creatinine [Mass ratio] 16.8 mg/mg Normal [facility] Comment on above: Performed By: #### P OCGLUC #### [facility] [address] [place] [address] Dr. Karina Heath CBC AUTO DIFFon 12-27-2022 BASO # 0.0 103/ul Normal 0.0-0.1 [facility] Comment on above: Performed By: #### C BC #### [facility] [address] [place] [address] Dr. Karina Heath Basophils/100 WBC (Bld) 0.5 % Normal 0.2-2.0 [facility] Comment on above: Performed By: #### C BC #### [facility] [address] [place] [address] Dr. Karina Heath EO # 0.1 103/ul Normal 0.0-0.7 [facility] Comment on above: Performed By: #### C BC #### [facility] [address] [place] [address] Dr. Karina Heath Eosinophils/100 WBC (Bld) 0.8 % Critically low 0.9-7.0 [facility] Comment on above: Performed By: #### C BC #### [facility] [address] [place] [address] Dr. Karina Heath Erythrocyte distribution width (RBC) [Ratio] 13.2 % Normal 11.0-15.0 [facility] Comment on above: Performed By: #### C BC #### [facility] [address] [place] [address] Dr. Karina Heath Hematocrit (Bld) [Volume fraction] 37.1 % Critically low 42.0-54.0 [facility] Comment on above: Performed By: #### C BC #### [facility] [address] [place] [address] Dr. Karina Heath Hemoglobin (Bld) [Mass/Vol] 13.0 g/dL Critically low 14.0-18.0 [facility] Comment on above: Performed By: #### C BC #### [facility] [address] [place] [address] Dr. Karina Heath IG # 0.03 10e3/ul Normal 0.00-0.03 [facility] Comment on above: Performed By: #### C BC #### [facility] [address] [place] [address] Dr. Karina Heath IG % 0.4 % Normal 0.0-0.5 [facility] Comment on above: Performed By: #### C BC #### [facility] [address] [place] [address] Dr. Karina Heath LYMPH # 1.2 103/ul Normal 1.2-3.8 [facility] Comment on above: Performed By: #### C BC #### [facility] [address] [place] [address] Dr. Karina Heath Lymphocytes/100 WBC (Bld) 15.3 % Critically low 20.5-60.0 [facility] Comment on above: Performed By: #### C BC #### [facility] [address] [place] [address] Dr. Karina Heath MANUAL DIFF REQ NO Normal [facility] Comment on above: Performed By: #### C BC #### [facility] [address] [place] [address] Dr. Karina Heath MCH (RBC) [Entitic mass] 28.7 pg Normal 25.9-34.0 [facility] Comment on above: Performed By: #### C BC #### [facility] [address] [address] [address] Karina Heath MCHC (RBC) [Mass/Vol] 35.0 g/dL Normal 29.9-35.2 The [facility] Comment on above: Performed By: #### C BC #### [facility] [address] [address] [address] Karina Heath MCV (RBC) [Entitic vol] 81.9 fL Normal 80.0-94.0 [facility] Comment on above: Performed By: #### C BC #### [facility] [address] [place] [address] Dr. Karina Heath MONO # 0.6 103/ul Normal 0.3-0.8 The [facility] Comment on above: Performed By: #### C BC #### [facility] [address] [place] [address] Dr. Karina Heath Monocytes/100 WBC (Bld) 7.1 % Normal 1.7-12.0 [facility] Comment on above: Performed By: #### C BC #### [facility] [address] [place] [address] Dr. Karina Heath NEUT # 5.8 103/ul Normal 1.4-6.5 [facility] Comment on above: Performed By: #### C BC #### [facility] [address] [place] [address] Dr. Karina Heath Neutrophils/100 WBC (Bld) 75.9 % Critically high 43.0-75.0 [facility] Comment on above: Performed By: #### C BC #### [facility] [address] [place] [address] Dr. Karina Heath Platelet mean volume (Bld) [Entitic vol] 9.6 fL Normal 9.5-13.5 [facility] Comment on above: Performed By: #### C BC #### [facility] [address] [place] [address] Dr. Karina Heath PLT 200 103/ul Normal 150-450 [facility] Comment on above: Performed By: #### C BC #### [facility] [address], [place] [address] Dr. Karina Heath RBC 4.53 106/ul Critically low 4.70-6.10 [facility] Comment on above: Performed By: #### C BC #### [facility] [address], [place] [address] Dr. Karina Heath WBC 7.7 103/ul Normal 4.0-11.0 [facility] Comment on above: Performed By: #### C BC #### [facility] [address], [place] [address] STROKE HEAD WOon [...] ANNI NOYOLA Date: 2022-12-27 14:03 Normal [facility] CTA HEAD WO W CONon 12-28-19 [...] JACOB ALICIA Date: 2022-12-27 14:55 Normal [facility] Covid-19 PCR (CVDTB)on 12-15 SARS-CoV-2 (COVID-19) RNA MEETA+probe Ql (Unsp spec) Not detected Normal NOT DETECTED [facility] Comment on above: Result Comment: When [...] for this test is supported by the [employer] of Health and Human Service's declaration that [...] used). Performed By: #### C VDTBH #### [facility] [address] [place] [address] [id number] Dr. Karina Heath DRUG SCREEN RAPID (URINE)on 12-27-2022 AMP Negative Normal NEGATIVE [facility] Comment on above: Performed By: #### C BC #### [facility] [address], [place] [address] Dr. Karina Heath BAR Negative Normal NEGATIVE [facility] Comment on above: Performed By: #### C BC #### [facility] [address] [place] [address] Dr. Karina Heath BUP Negative Normal NEGATIVE [facility] Comment on above: Performed By: #### C BC #### [facility] [address] [place] [address] Dr. Karina Heath BZO Negative Normal NEGATIVE [facility] Comment on above: Performed By: #### C BC #### [facility] [address] [place] [address] Dr. Karina Heath VALERY Negative Normal NEGATIVE [facility] Comment on above: Performed By: #### C BC #### [facility] [address] [place] [address] Dr. Karina Heath CUT-OFFS SEE BELOW Normal [facility] Comment on above: Result Comment: AMP (Amphetamine): 500ng/mL, BAR (Barbituates): 200 ng/mL, BZO (Benzodiazepines): 150 ng/mL, BUP (Buprenorphine): 10 ng/mL, VALERY (Cocaine): 150 ng/mL, mAMP (Methamphetamine): 500 ng/mL, MTD (Methadone): 200 ng/mL, OPI (Opiates): 100 ng/mL, OXY (Oxycodone): 100 ng/mL, PCP (Phencyclidine): 25 ng/mL, PPX (Propoxyphene): 300 ng/mL, THC (Cannabinoids): 50 ng/mL, TCA (Trycyclic Antidepressants): 300 ng/mL Performed By: #### C BC #### [facility] [address] [place] [address] Dr. Karina Heath DRUG CUT HEADER DRUG CLASS TEST SYST EM CUT-OFF CONCENTRATIONS ARE FOLLOWS: Normal [facility] Comment on above: Performed By: #### C BC #### [facility] [address] [place] [address] Dr. Karina Heath mAMP Negative Normal NEGATIVE [facility] Comment on above: Performed By: #### C BC #### [facility] [address] [place] [address] Dr. Karina Heath MTD Negative Normal NEGATIVE [facility] Comment on above: Performed By: #### C BC #### [facility] [address] [place] [address] Dr. Karina Heath OPI Negative Normal NEGATIVE [facility] Comment on above: Performed By: #### C BC #### [facility] [address] [place] [address] Dr. Karina Heath OXY Negative Normal NEGATIVE [facility] Comment on above: Performed By: #### C BC #### [facility] [address] [place] [address] Dr. Karina Heath PCP Negative Normal NEGATIVE [facility] Comment on above: Performed By: #### C BC #### [facility] [address] [place] [address] Dr. Karina Heath PPX Negative Normal NEGATIVE [facility] Comment on above: Performed By: #### C BC #### [facility] [address] [place] [address] Dr. Karina Heath TCA Negative Normal NEGATIVE [facility] Comment on above: Performed By: #### C BC #### [facility] [address] [place] [address] Dr. Karina Heath THC Negative Normal NEGATIVE [facility] Comment on above: Performed By: #### C BC #### [facility] [address] [place] [address] Dr. Karina Heath ER URINE PROFILEon 3 Bilirubin Ql (U) Negative Normal NEGATIVE [facility] Comment on above: Performed By: #### P OCGLUC #### [facility] [address] [place] [address] Dr. Karina Heath Clarity (U) CLEAR Normal CLEAR [facility] Comment on above: Performed By: #### P OCGLUC #### [facility] [address] [place] [address] Dr. Karina Heath Color (U) LT. YELLOW Normal YELLOW [facility] Comment on above: Performed By: #### P OCGLUC #### [facility] [address] [place] [address] Dr. Karina GLASGOW A micrscopic examination will be performed if indicated. Normal [facility] Comment on above: Performed By: #### P OCGLUC #### [facility] [address] [place] [address] [address] Karina Heath Glucose Ql (U) >1000 Abnormal NEGATIVE [facility] Comment on above: Performed By: #### P OCGLUC #### [facility] [address] [address] [address] Karina Heath Hemoglobin Ql (U) TRACE-INTACT Abnormal NEGATIVE [facility] Comment on above: Performed By: #### P OCGLUC #### [facility] [address] [address] [address] Karina Heath Ketones Ql (U) TRACE Abnormal NEGATIVE [facility] Comment on above: Performed By: #### P OCGLUC #### [facility] [address] [address] [address] Karina Heath LEUKOCYTES Negative Normal NEGATIVE [facility] Comment on above: Performed By: #### P OCGLUC #### [facility] [address] [place] [address] Dr. Karina Heath Nitrite Ql (U) Negative Normal NEGATIVE [facility] Comment on above: Performed By: #### P OCGLUC #### [facility] [address] [address] [address] Karina Heath pH (U) 7.0 [pH] Normal 5-9 [facility] Comment on above: Performed By: #### P OCGLUC #### [facility] [address] [place] [address] Dr. Karina Heath Protein (U) [Mass/Vol] 100 mg/dL Abnormal NEGAT RAJAN/ TRACE [facility] Comment on above: Performed By: #### P OCGLUC #### [facility] [address] [place] [address] Dr. Karina Heath SPEC GRAVITY 1.010 Normal 1.005-<=1.02 5 [facility] Comment on above: Performed By: #### P OCGLUC #### [facility] [address] [address] [address] Karina Heath UR MICRO IND INDICATED Normal [facility] Comment on above: Performed By: #### P OCGLUC #### [facility] [address] [address] [address] Karnia Heath Urobilinogen Qn (U) 0.2 {Rachana'U}/dL Normal 0.2 - 1. 0 [facility] Comment on above: Performed By: #### P OCGLUC #### [facility] [address] [place] [address] Dr. Karina Heath POINT OF CARE GLUCOSEon 12-15 Glucose [Mass/Vol] 233 mg/dL Critically high 74-106 [facility] Comment on above: Performed By: #### P OCGLUC #### [facility] [address] [address] [address] Karina Heath Glucose [Mass/Vol] 199 mg/dL Critically high -106 [facility] Comment on above: Performed By: #### P OCGLUC #### [facility] [address] [place] [address] Dr. Karina Heath PROF 14(COMP METB)on 023 Albumin [Mass/Vol] 3.4 g/dL Normal 3.4-5.0 [facility] Comment on above: Performed By: #### P OCGLUC #### [facility] [address] [place] [address] Dr. Karina Heath Albumin/Globulin [Mass ratio] 1.0 {ratio} Normal [facility] Comment on above: Performed By: #### P OCGLUC #### [facility] [address] [place] [address] Dr. Karina Heath ALP [Catalytic activity/Vol] 100 U/L Normal 46-116 [facility] Comment on above: Performed By: #### P OCGLUC #### [facility] [address] [address] [address] Karina Heath ALT [Catalytic activity/Vol] 31 U/L Normal 16-63 [facility] Comment on above: Performed By: #### P OCGLUC #### [facility] [address] [place] [address] Dr. Karina Heath Anion gap [Moles/Vol] 10.5 mmol/L Normal [facility] Comment on above: Performed By: #### P OCGLUC #### [facility] [address] [place] [address] [address] Karina Heath AST [Catalytic activity/Vol] 18 U/L Normal 15-37 [facility] Comment on above: Performed By: #### P OCGLUC #### [facility] [address] [address] [address] Karina Heath Bilirubin [Mass/Vol] 0.2 mg/dL Normal 0.2-1.0 [facility] Comment on above: Performed By: #### P OCGLUC #### [facility] [address] [address] [address] Karina Heath Calcium [Mass/Vol] 9.0 mg/dL Normal 8.5-10.1 [facility] Comment on above: Performed By: #### P OCGLUC #### [facility] [address] [address] [address] Karina Heath Chloride [Moles/Vol] 96 mmol/L Critically low 98-107 [facility] Comment on above: Performed By: #### P OCGLUC #### [facility] [address] [address] [address] Kairna Heath CO2 [Moles/Vol] 29.1 mmol/L Normal 21.0-32.0 [facility] Comment on above: Performed By: #### P OCGLUC #### [facility] [address] [address] [address] Karina Heath Creatinine [Mass/Vol] 0.91 mg/dL Normal 0.70-1.30 [facility] Comment on above: Performed By: #### P OCGLUC #### [facility] [address] [address] [address] Karina Heath EGFR-AF ZAMBIAN >60 Normal >=60 [facility] Comment on above: Performed By: #### P OCGLUC #### [facility] [address] [place] [address] [address] Karina Heath EGFR-NON AF ZAMBIAN >60 Normal >=60 [facility] Comment on above: Performed By: #### P OCGLUC #### [facility] [address] [address] [address] Karina Heath Globulin (S) [Mass/Vol] 3.5 g/dL Normal [facility] Comment on above: Performed By: #### P OCGLUC #### [facility] [address] [address] [address] Karina Heath Glucose [Mass/Vol] 214 mg/dL Critically high 74-106 T [facility] Comment on above: Performed By: #### P OCGLUC #### [facility] [address] [address] [address] Karina Heath Potassium [Moles/Vol] 3.6 mmol/L Normal 3.5-5.1 [facility] Comment on above: Performed By: #### P OCGLUC #### [facility] [address] [address] [address] Karina Heath Protein [Mass/Vol] 6.9 g/dL Normal 6.4-8.2 [facility] Comment on above: Performed By: #### P OCGLUC #### [facility] [address] [address] [address] Karina Heath Sodium [Moles/Vol] 132 mmol/L Critically low 136-145 Th [facility] Comment on above: Performed By: #### P OCGLUC #### [facility] [address] [address] [address] Karina Heath Urea nitrogen [Mass/Vol] 27.0 mg/dL Critically high 7.0-18.0 [facility] Comment on above: Performed By: #### P OCGLUC #### [facility] [address] [address] [address] Karina Heath Urea nitrogen/Creatinine [Mass ratio] 29.7 mg/mg Normal [facility] Comment on above: Performed By: #### P OCGLUC #### [facility] [address] [address] [address] Karina Heath PROTIMEon 12-27-2022 INR Coag (PPP) [Relative time] {INR} Normal [facility] Comment on above: Performed By: #### P TT, PT #### [facility] [address] [place] [address] Dr. Karina Heath INR GUIDELINES SEE BELOW Normal [facility] Comment on above: Result Comment: LINDA RED INR: 2.0 - 3.0 CONDITIONS NOT LISTED BELOW 2.5 - 3.5 FOR PROSTHETIC HEART VALVE REPLACEMENT 2.5 - 3.5 RECURRENT THROMBOSIS Performed By: #### P TT, PT #### [facility] [address] [place] [address] Dr. Karina Heath PT Coag (PPP) [Time] 9.8 s Normal 9.0-11.6 [facility] Comment on above: Performed By: #### P TT, PT #### [facility] [address] [place] [address] Dr. Karina Heath PTTon 12-27-2022 aPTT Coag (Bld) [Time] 24.3 s Normal 22.3-36.2 [facility] Comment on above: Performed By: #### P TT, PT #### [facility] [address] [place] [address] Dr. Karina Heath TROPONIN, HIGH SENSITIVITYon 12-27-2022 HSTROP 5.5 pg/mL Normal 4.0-76.1 [facility] Comment on above: Result Comment: CUT- OFF POINTS HAVE BEEN ESTABLISHED BASED ON THE FOURTH UNIVERSAL DEFINITIONS OF MYOCARDIAL INFARCTION. THE UPPER REFERENCE LIMIT (URL) OF TROPONIN, DEFINED THE 99TH PERCENTILE OF cTnI DISTRIBUTION IN A REFERENCE POPULATION, HAS BEEN CONFIRMED THE DECISION THRESHOLD FOR ND DIAGNOSIS. Performed By: #### P OCGLUC #### [facility] [address] [place] [address] Dr. Karina Heath TSHon 12-27-2022 TSH 0.848 uIU/mL Normal 0.358-3.740 [facility] Comment on above: Performed By: #### P OCGLUC #### [facility] [address] [place] [address] Dr. Karina Heath URINE MICROSCOPIC ONLYon BACTERIA NONE SEEN Normal NONE SEEN [facility] Comment on above: Performed By: #### P OCGLUC #### [facility] [address] [place] [address] Dr. Karina Heath Bacteria identified Cx Nom (U) NOT INDICATED Normal [facility] Comment on above: Performed By: #### P OCGLUC #### [facility] [address] [place] [address] Dr. Karina Heath CAST NONE SEEN Normal NONE SEEN [facility] Comment on above: Performed By: #### P OCGLUC #### [facility] [address] [place] [address] Dr. Karina Heath Crystals LM Nom (Urine sed) NONE SEEN Normal NONE SEEN [facility] Comment on above: Performed By: #### P OCGLUC #### [facility] [address] [place] [address] Dr. Karina Heath Epithelial cells LM Ql (Urine sed) NONE SEEN Normal NONE SEEN /RARE [facility] Comment on above: Performed By: #### P OCGLUC #### [facility] [address] [place] [address] Dr. Karina Heath MUCOUS NONE SEEN Normal NONE SEEN [facility] Comment on above: Performed By: #### P OCGLUC #### [facility] [address] [place] [address] Dr. Karina Heath RBC 0-2 Normal 0-2 [facility] Comment on above: Performed By: #### P OCGLUC #### [facility] [address] [place] [address] Dr. Karina Heath WBC NONE SEEN Normal NONE SEEN [facility] Comment on above: Performed By: #### P OCGLUC #### [facility] [address] [place] [address] Dr. Karina Heath XR CHEST 1 Von 12-27-2022 XR CHEST 1 V EXAM: XR CHEST 1 V HISTORY: Aphasia COMPARISON: None. TECHNIQUE: AP upright portable. FINDINGS: Cardiomediastinal silhouette and pulmonary vascularity are within normal limits. Lungs and the costophrenic angles are clear. IMPRESSION: No acute cardiopulmonary disease. Electronically authenticated by: ANNI NOYOLA Date: 2022-12-27 14:03 Normal [facility] ACID FAST SMEAR AND CXon Acid Fast Culture Negative Normal [facility] Comment on above: Result Comment: No a martin fast bacilli isolated after 6 weeks. Performed By: #### A FB #### [facility] [address] [address] [address] Karina Heath Acid Fast Smear Negative Normal [facility] Comment on above: Performed By: #### A FB #### [facility] [address] [address] [address] Karina Heath AFB Specimen Processing Direct Inoculation [facility] Comment on above: Performed By: #### A FB #### [facility] [address] [address] [address] Karina Heath FUNGAL CULTUREon 11-12-2022 Fungus (Mycology) Culture Final report [facility] Comment on above: Performed By: #### C BC #### [facility] [address] [place] [address] Dr. Karina Heath Fungus Stain Final report Normal [facility] Comment on above: Performed By: #### C BC #### [facility] [address] [place] [address] Dr. Karina Heath Result 1 Comment [facility] Comment on above: Result Comment: MYNOR/ Calcofluor preparation: no fungus observed. Performed By: #### C BC #### [facility] [address] [place] [address] Dr. Karina Heath Result Comment: No y [...] F Trimethoprim/Sulfametho xazole <=10 S F Normal [facility] Comment on above: Performed By: #### P OCGLUC #### [facility] [address] [place] [address] Dr. Karina Heath CBC AUTO DIFFon 10-15-2022 BASO # 0.0 103/ul Normal 0.0-0.1 [facility] Comment on above: Performed By: #### C BC #### [facility] [address] [place] [address] Dr. Karina Heath Basophils/100 WBC (Bld) 0.5 % Normal 0.2-2.0 [facility] Comment on above: Performed By: #### C BC #### [facility] [address] [place] [address] Dr. Karina Heath EO # 0.1 103/ul Normal 0.0-0.7 [facility] Comment on above: Performed By: #### C BC #### [facility] [address] [place] [address] Dr. Karina Heath Eosinophils/100 WBC (Bld) 1.5 % Normal 0.9-7.0 [facility] Comment on above: Performed By: #### C BC #### [facility] [address] [place] [address] Dr. Karina Heath Erythrocyte distribution width (RBC) [Ratio] 12.4 % Normal 11.0-15.0 [facility] Comment on above: Performed By: #### C BC #### [facility] [address] [place] [address] Dr. Karina Heath Hematocrit (Bld) [Volume fraction] 33.1 % Critically low 42.0-54.0 [facility] Comment on above: Performed By: #### C BC #### [facility] [address] [place] [address] Dr. Karina Heath Hemoglobin (Bld) [Mass/Vol] 11.0 g/dL Critically low 14.0-18.0 [facility] Comment on above: Performed By: #### C BC #### [facility] [address] [place] [address] Dr. Karina Heath IG # 0.03 10e3/ul Normal 0.00-0.03 [facility] Comment on above: Performed By: #### C BC #### [facility] [address] [place] [address] Dr. Karina Heath IG % 0.5 % Normal 0.0-0.5 [facility] Comment on above: Performed By: #### C BC #### [facility] [address] [place] [address] Dr. Karina Heath LYMPH # 1.2 103/ul Normal 1.2-3.8 [facility] Comment on above: Performed By: #### C BC #### [facility] [address] [place] [address] Dr. Karina Heath Lymphocytes/100 WBC (Bld) 20.0 % Critically low 20.5-60.0 [facility] Comment on above: Performed By: #### C BC #### [facility] [address] [place] [address] Dr. Karina Heath MANUAL DIFF REQ NO Normal [facility] Comment on above: Performed By: #### C BC #### [facility] [address] [place] [address] Dr. Karina Heath MCH (RBC) [Entitic mass] 28.6 pg Normal 25.9-34.0 [facility] Comment on above: Performed By: #### C BC #### [facility] [address] [place] [address] Dr. Karina Heath MCHC (RBC) [Mass/Vol] 33.2 g/dL Normal 29.9-35.2 [facility] Comment on above: Performed By: #### C BC #### [facility] [address] [place] [address] Dr. Karina Heath MCV (RBC) [Entitic vol] 86.0 fL Normal 80.0-94.0 [facility] Comment on above: Performed By: #### C BC #### [facility] [address] [place] [address] Dr. Karina Heath MONO # 0.5 103/ul Normal 0.3-0.8 [facility] Comment on above: Performed By: #### C BC #### [facility] [address] [place] [address] Dr. Karina Heath Monocytes/100 WBC (Bld) 9.1 % Normal 1.7-12.0 [facility] Comment on above: Performed By: #### C BC #### [facility] [address] [place] [address] Dr. Karina Heath NEUT # 4.0 103/ul Normal 1.4-6.5 [facility] Comment on above: Performed By: #### C BC #### [facility] [address] [place] [address] Dr. Karina Heath Neutrophils/100 WBC (Bld) 68.4 % Normal 43.0-75.0 [facility] Comment on above: Performed By: #### C BC #### [facility] [address] [place] [address] Dr. Karina Heath Platelet mean volume (Bld) [Entitic vol] 9.2 fL Critically low 9.5-13.5 [facility] Comment on above: Performed By: #### C BC #### [facility] [address] [place] [address] Dr. Karina Heath PLT 214 103/ul Normal 150-450 [facility] Comment on above: Performed By: #### C BC #### [facility] [address] [place] [address] Dr. Karina Heath RBC 3.85 106/ul Critically low 4.70-6.10 The [facility] Comment on above: Performed By: #### C BC #### [facility] [address] [place] [address] Dr. Karina Heath WBC 5.8 103/ul Normal 4.0-11.0 [facility] Comment on above: Performed By: #### C BC #### [facility] [address] [place] [address] Dr. Karina Heath CULTURE WOUNDon 10-15-2022 CULTURE [...] F Trimethoprim/Sulfametho xazole <=10 S F Normal [facility] Comment on above: Performed By: #### W OUNDCX #### [facility] [address] [place] [address] Dr. Karina Heath POINT OF CARE GLUCOSEon 09-18 Glucose [Mass/Vol] 353 mg/dL Critically high 74-106 [facility] Comment on above: Performed By: #### C BC #### [facility] [address] [place] [address] Dr. Karina Heath Glucose [Mass/Vol] 363 mg/dL Critically high -106 [facility] Comment on above: Performed By: #### C BC #### [facility] [address] [place] [address] Dr. Karina Heath PROF CHEM 8 (BAS METB)on Anion gap [Moles/Vol] 12.0 mmol/L Normal [facility] Comment on above: Performed By: #### C VDTBH #### [facility] [address] [place] [address] Dr. Karina Heath Calcium [Mass/Vol] 8.4 mg/dL Critically low 8.5-10.1 [facility] Comment on above: Performed By: #### C VDTBH #### [facility] [address] [place] [address] Dr. Karina Heath Chloride [Moles/Vol] 98 mmol/L Normal 98-107 [facility] Comment on above: Performed By: #### C VDTBH #### [facility] [address] [place] [address] Dr. Karina Heath CO2 [Moles/Vol] 27.2 mmol/L Normal 21.0-32.0 [facility] Comment on above: Performed By: #### C VDTBH #### [facility] [address] [place] [address] Dr. Karina Heath Creatinine [Mass/Vol] 1.07 mg/dL Normal 0.70-1.30 [facility] Comment on above: Performed By: #### C VDTBH #### [facility] [address] [place] [address] Dr. Karina Heath EGFR-AF ZAMBIAN >60 Normal >=60 [facility] Comment on above: Performed By: #### C VDTBH #### [facility] [address] [place] [address] Dr. Karina Heath EGFR-NON AF ZAMBIAN >60 Normal >=60 [facility] Comment on above: Performed By: #### C VDTBH #### [facility] [address] [place] [address] Dr. Karina Heath Glucose [Mass/Vol] 355 mg/dL Critically high 74-106 T [facility] Comment on above: Performed By: #### C VDTBH #### [facility] [address] [place] [address] Dr. Karina Heath Potassium [Moles/Vol] 4.2 mmol/L Normal 3.5-5.1 [facility] Comment on above: Performed By: #### C VDTBH #### [facility] [address] [place] [address] Dr. Karina Heath Sodium [Moles/Vol] 133 mmol/L Critically low 136-145 Th [facility] Comment on above: Performed By: #### C VDTBH #### [facility] [address] [place] [address] Dr. Karina Heath Urea nitrogen [Mass/Vol] 17.0 mg/dL Normal 7.0-18.0 [facility] Comment on above: Performed By: #### C VDTBH #### [facility] [address] [place] [address] Dr. Karina Heath Urea nitrogen/Creatinine [Mass ratio] 15.9 mg/mg Normal [facility] Comment on above: Performed By: #### C VDTBH #### [facility] [address] [place] [address] Dr. Karina Heath PTTon 10-15-2022 aPTT Coag (Bld) [Time] 27.3 s Normal 22.3-36.2 Th e [facility] Comment on above: Performed By: #### C VDTBH #### [facility] [address] [place] [address] Dr. Karina Heath CBC AUTO DIFFon 10-14-2022 BASO # 0.0 103/ul Normal 0.0-0.1 [facility] Comment on above: Performed By: #### C BC #### [facility] [address] [place] [address] Dr. Karina Heath Basophils/100 WBC (Bld) 0.4 % Normal 0.2-2.0 [facility] Comment on above: Performed By: #### C BC #### The [facility] [address] [place] [address] Dr. Karina Heath EO # 0.1 103/ul Normal 0.0-0.7 [facility] Comment on above: Performed By: #### C BC #### [facility] [address] [place] [address] Dr. Karina Heath Eosinophils/100 WBC (Bld) 1.5 % Normal 0.9-7.0 [facility] Comment on above: Performed By: #### C BC #### [facility] [address] [place] [address] Dr. Karina Heath Erythrocyte distribution width (RBC) [Ratio] 12.6 % Normal 11.0-15.0 [facility] Comment on above: Performed By: #### C BC #### [facility] [address] [place] [address] Dr. Karina Heath Hematocrit (Bld) [Volume fraction] 31.3 % Critically low 42.0-54.0 [facility] Comment on above: Performed By: #### C BC #### [facility] [address] [place] [address] Dr. Karina Heath Hemoglobin (Bld) [Mass/Vol] 10.8 g/dL Critically low 14.0-18.0 [facility] Comment on above: Performed By: #### C BC #### [facility] [address] [place] [address] Dr. Karina Heath IG # 0.05 10e3/ul Critically high 0.00-0.03 [facility] Comment on above: Performed By: #### C BC #### [facility] [address] [place] [address] Dr. Karina Heath IG % 0.7 % Critically high 0.0-0.5 [facility] Comment on above: Performed By: #### C BC #### [facility] [address] [place] [address] Dr. Karina Heath LYMPH # 1.4 103/ul Normal 1.2-3.8 [facility] Comment on above: Performed By: #### C BC #### [facility] [address] [place] [address] Dr. Karina Heath Lymphocytes/100 WBC (Bld) 20.8 % Normal 20.5-60.0 [facility] Comment on above: Performed By: #### C BC #### [facility] [address] [place] [address] Dr. Karina Heath MANUAL DIFF REQ NO Normal The [facility] Comment on above: Performed By: #### C BC #### [facility] [address] [place] [address] Dr. Karina Heath MCH (RBC) [Entitic mass] 29.4 pg Normal 25.9-34.0 [facility] Comment on above: Performed By: #### C BC #### [facility] [address] [place] [address] Dr. Karina Heath MCHC (RBC) [Mass/Vol] 34.5 g/dL Normal 29.9-35.2 [facility] Comment on above: Performed By: #### C BC #### [facility] [address] [place] [address] Dr. Karina Heath MCV (RBC) [Entitic vol] 85.3 fL Normal 80.0-94.0 The [facility] Comment on above: Performed By: #### C BC #### [facility] [address] [place] [address] Dr. Karina Heath MONO # 0.7 103/ul Normal 0.3-0.8 The [facility] Comment on above: Performed By: #### C BC #### [facility] [address] [place] [address] Dr. Karina Heath Monocytes/100 WBC (Bld) 10.3 % Normal 1.7-12.0 The [facility] Comment on above: Performed By: #### C BC #### [facility] [address] [place] [address] Dr. Karina Heath NEUT # 4.5 103/ul Normal 1.4-6.5 [facility] Comment on above: Performed By: #### C BC #### [facility] [address] [place] [address] Dr. Karina Heath Neutrophils/100 WBC (Bld) 66.3 % Normal 43.0-75.0 The [facility] Comment on above: Performed By: #### C BC #### [facility] [address] [place] [address] Dr. Karina Heath Platelet mean volume (Bld) [Entitic vol] 9.2 fL Critically low 9.5-13.5 The [facility] Comment on above: Performed By: #### C BC #### [facility] [address] [place] [address] Dr. Karina Heath PLT 227 103/ul Normal 150-450 The [facility] Comment on above: Performed By: #### C BC #### [facility] [address] [place] [address] Dr. Karina Heath RBC 3.67 106/ul Critically low 4.70-6.10 The [facility] Comment on above: Performed By: #### C BC #### [facility] [address] [address] [address] Karina Heath WBC 6.7 103/ul Normal 4.0-11.0 [facility] Comment on above: Performed By: #### C BC #### [facility] [address] [address] [address] Karina Heath CULTURE ANAEROBICon 10-14-20 22 CULTURE ANAEROBIC Culture Observations : NO GROWTH OF ANAEROBES AT 72 HOURS. Normal [facility] Comment on above: Performed By: #### A NACX #### [facility] [address] [place] [address] Dr. Karina Heath GRAM STAINon 10-14-2022 DIPHTHEROIDS [facility] Comment on above: Performed By: #### P OCGLUC #### [facility] [address] [place] [address] Dr. Karina Heath EPITHELIALS [facility] Comment on above: Performed By: #### P OCGLUC #### [facility] [address] [address] [address] Karina Heath FUNGAL ELEMENTS [facility] Comment on above: Performed By: #### P OCGLUC #### [facility] [address] [place] [address] Dr. Karina CHEN NEG BACILLI [facility] Comment on above: Performed By: #### P OCGLUC #### [facility] [address] [place] [address] Dr. Karina CHEN NEG DIPPLOCOCCI [facility] Comment on above: Performed By: #### P OCGLUC #### [facility] [address] [place] [address] Dr. Karina CHEN POS BACILLI [facility] Comment on above: Performed By: #### P OCGLUC #### [facility] [address] [address] [address] Karina Heath GRAM POSITIVE COCCI FEW Normal [facility] Comment on above: Performed By: #### P OCGLUC #### [facility] [address] [address] [address] Karina Heath GRAM STAIN SOURCE Rt Leg Abscess [facility] Comment on above: Performed By: #### P OCGLUC #### [facility] [address] [address] [address] Karina Heath GS_DIPTH Normal [facility] Comment on above: Performed By: #### P OCGLUC #### [facility] [address] [address] [address] Karina Heath WBC RARE [facility] Comment on above: Performed By: #### P OCGLUC #### [facility] [address] [address] [address] Karina Heath POINT OF CARE GLUCOSEon 09-17 Glucose [Mass/Vol] 282 mg/dL Critically high [address] [place] [address] Comment on above: Performed By: #### C BC #### [facility] [address] [address] [address] Karina Heath Glucose [Mass/Vol] 281 mg/dL Critically high [address] [place] [address] Comment on above: Performed By: #### P OCGLUC #### [facility] [address] [address] [address] Karina Heath Glucose [Mass/Vol] 157 mg/dL Critically high [address] [place] [address] Comment on above: Performed By: #### P OCGLUC #### [facility] [address] [address] [address] Karina Heath Glucose [Mass/Vol] 180 mg/dL Critically high [address] [place] [address] Comment on above: Performed By: #### P OCGLUC #### [facility] [address] [place] [address] Dr. Karina Heath PROF CHEM 8 (BAS METB)on Anion gap [Moles/Vol] 10.4 mmol/L Normal [facility] Comment on above: Performed By: #### C BC #### [facility] [address] [place] [address] Dr. Karina Heath Calcium [Mass/Vol] 8.4 mg/dL Critically low 8.5-10.1 [facility] Comment on above: Performed By: #### C BC #### [facility] [address] [place] [address] Dr. Karina Heath Chloride [Moles/Vol] 99 mmol/L Normal 98-107 [facility] Comment on above: Performed By: #### C BC #### [facility] [address] [place] [address] Dr. Karina Heath CO2 [Moles/Vol] 29.3 mmol/L Normal 21.0-32.0 [facility] Comment on above: Performed By: #### C BC #### [facility] [address] [place] [address] Dr. Karina Heath Creatinine [Mass/Vol] 1.01 mg/dL Normal 0.70-1.30 [facility] Comment on above: Performed By: #### C BC #### [facility] [address] [place] [address] Dr. Karina Heath EGFR-AF ZAMBIAN >60 Normal >=60 [facility] Comment on above: Performed By: #### C BC #### [facility] [address] [place] [address] Dr. Karina Heath EGFR-NON AF ZAMBIAN >60 Normal >=60 [facility] Comment on above: Performed By: #### C BC #### [facility] [address] [place] [address] Dr. Karina Heath Glucose [Mass/Vol] 394 mg/dL Critically high 74-106 [facility] Comment on above: Performed By: #### C BC #### [facility] [address] [place] [address] Dr. Karina Heath Potassium [Moles/Vol] 3.7 mmol/L Normal 3.5-5.1 [facility] Comment on above: Performed By: #### C BC #### [facility] [address] [place] [address] Dr. Karina Heath Sodium [Moles/Vol] 135 mmol/L Critically low 136-145 Th [facility] Comment on above: Performed By: #### C BC #### [facility] [address] [place] [address] Dr. Karina Heath Urea nitrogen [Mass/Vol] 13.0 mg/dL Normal 7.0-18.0 [facility] Comment on above: Performed By: #### C BC #### [facility] [address] [place] [address] Dr. Karina Heath Urea nitrogen/Creatinine [Mass ratio] 12.9 mg/mg Normal [facility] Comment on above: Performed By: #### C BC #### [facility] [address] [place] [address] Dr. Karina Heath PTTon 10-14-2022 aPTT Coag (Bld) [Time] 26.5 s Normal 22.3-36.2 Th [facility] Comment on above: Performed By: #### P OCGLUC #### [facility] [address] [place] [address] Dr. Karina Heath CBC AUTO DIFFon 10-13-2022 BASO # 0.1 103/ul Normal 0.0-0.1 [facility] Comment on above: Performed By: #### C BC #### [facility] [address] [place] [address] Dr. Karina Heath Basophils/100 WBC (Bld) 0.8 % Normal 0.2-2.0 [facility] Comment on above: Performed By: #### C BC #### [facility] [address] [place] [address] Dr. Karina Heath EO # 0.1 103/ul Normal 0.0-0.7 [facility] Comment on above: Performed By: #### C BC #### [facility] [address] [place] [address] Dr. Karina Heath Eosinophils/100 WBC (Bld) 1.8 % Normal 0.9-7.0 [facility] Comment on above: Performed By: #### C BC #### [facility] [address] [place] [address] Dr. Karina Heath Erythrocyte distribution width (RBC) [Ratio] 12.3 % Normal 11.0-15.0 [facility] Comment on above: Performed By: #### C BC #### [facility] [address] [place] [address] Dr. Karina Heath Hematocrit (Bld) [Volume fraction] 33.7 % Critically low 42.0-54.0 [facility] Comment on above: Performed By: #### C BC #### [facility] [address] [place] [address] Dr. Karina Heath Hemoglobin (Bld) [Mass/Vol] 11.8 g/dL Critically low 14.0-18.0 [facility] Comment on above: Performed By: #### C BC #### [facility] [address] [place] [address] Dr. Karina Heath IG # 0.05 10e3/ul Critically high 0.00-0.03 [facility] Comment on above: Performed By: #### C BC #### [facility] [address] [place] [address] Dr. Karina Heath IG % 0.8 % Critically high 0.0-0.5 [facility] Comment on above: Performed By: #### C BC #### [facility] [address] [place] [address] Dr. Karina Heath LYMPH # 1.0 103/ul Critically low 1.2-3.8 [facility] Comment on above: Performed By: #### C BC #### [facility] [address] [place] [address] Dr. Karina Heath Lymphocytes/100 WBC (Bld) 16.4 % Critically low 20.5-60.0 [facility] Comment on above: Performed By: #### C BC #### [facility] [address] [place] [address] Dr. Karina Heath MANUAL DIFF REQ NO Normal [facility] Comment on above: Performed By: #### C BC #### [facility] [address] [place] [address] Dr. Karina Heath MCH (RBC) [Entitic mass] 28.9 pg Normal 25.9-34.0 [facility] Comment on above: Performed By: #### C BC #### [facility] [address] [place] [address] Dr. Karina Heath MCHC (RBC) [Mass/Vol] 35.0 g/dL Normal 29.9-35.2 [facility] Comment on above: Performed By: #### C BC #### [facility] [address] [place] [address] Dr. Karina Heath MCV (RBC) [Entitic vol] 82.6 fL Normal 80.0-94.0 [facility] Comment on above: Performed By: #### C BC #### [facility] [address] [place] [address] Dr. Karina Heath MONO # 0.7 103/ul Normal 0.3-0.8 [facility] Comment on above: Performed By: #### C BC #### [facility] [address] [place] [address] Dr. Karina Heath Monocytes/100 WBC (Bld) 10.6 % Normal 1.7-12.0 [facility] Comment on above: Performed By: #### C BC #### [facility] [address] [place] [address] Dr. Karina Heath NEUT # 4.3 103/ul Normal 1.4-6.5 [facility] Comment on above: Performed By: #### C BC #### [facility] [address] [place] [address] Dr. Karina Heath Neutrophils/100 WBC (Bld) 69.6 % Normal 43.0-75.0 The [facility] Comment on above: Performed By: #### C BC #### [facility] [address] [place] [address] Dr. Karina Heath Platelet mean volume (Bld) [Entitic vol] 9.0 fL Critically low 9.5-13.5 [facility] Comment on above: Performed By: #### C BC #### [facility] [address] [place] [address] Dr. Karina Heath PLT 257 103/ul Normal 150-450 [facility] Comment on above: Performed By: #### C BC #### [facility] [address] [address] [address] Karina Heath RBC 4.08 106/ul Critically low 4.70-6.10 [facility] Comment on above: Performed By: #### C BC #### [facility] [id number] Karina Heath WBC 6.1 103/ul Normal 4.0-11.0 [facility] Comment on above: Performed By: #### C BC #### [facility] [address] [address] [address] Karina Heath CULTURE BLOODon 10-13-2022 Microscopic examination of blood, culture Culture Observations: NO GROWTH AT 5 DAYS. Normal [facility] Comment on above: Performed By: #### P OCGLUC #### [facility] [address] [place] [address] Dr. Karina Heath Microscopic examination of blood, culture Culture Observations: NO GROWTH AT 5 DAYS. Normal [facility] Comment on above: Performed By: #### P OCGLUC #### [facility] [address] [address] [address] Karina Heath Covid-19 PCR ([facility]on 09-17 SARS-CoV-2 (COVID-19) RNA MEETA+probe Ql (Unsp spec) Not detected Normal NOT DETECTED [facility] Comment on above: Result Comment: When [...] for this test is supported by the [place] of Health and Human Service's declaration that [...] used). Performed By: #### P OCGLUC #### [facility] [address] [place] [address] Dr. Karina Heath POINT OF CARE GLUCOSEon 12-2 Glucose [Mass/Vol] 281 mg/dL Critically high 74-106 T [facility] Comment on above: Performed By: #### P OCGLUC #### [facility] [address] [place] [address] Dr. Karina Heath GI PANEL (PCR)on 09-24-2022 Adenovirus F 40/41 Not detected Normal NOT DETECTED [facility] Comment on above: Performed By: #### C BC #### [facility] [address] [place] [address] Dr. Karina Heath Astrovirus Not detected Normal NOT DETECTED The [facility] Comment on above: Performed By: #### C BC #### [facility] [address] [place] [address] Dr. Karina Heath C. Diff toxin A/B Not detected Normal NOT DETECTED The [facility] Comment on above: Performed By: #### C BC #### [facility] [address] [place] [address] Dr. Karina Heath Campylobacter Not detected Normal NOT DETECTED The [facility] Comment on above: Performed By: #### C BC #### [facility] [address] [place] [address] Dr. Karina Heath Cryptosporidium Not detected Normal NOT DETECTED The [facility] Comment on above: Performed By: #### C BC #### [facility] [address] [place] [address] Dr. Karina Heath Cyclos. Cayetanensis Not detected Normal NOT DETECTED The [facility] Comment on above: Performed By: #### C BC #### [facility] [address] [place] [address] Dr. Karina Heath E. Coli O157 Not Applicable Normal Not Applicable [facility] Comment on above: Performed By: #### C BC #### [facility] [address] [place] [address] Dr. Karina Heath E. histolytica Not detected Normal NOT DETECTED The [facility] Comment on above: Performed By: #### C BC #### [facility] [address] [place] [address] Dr. Karina Heath EAEC Not detected Normal NOT DETECTED The [facility] Comment on above: Performed By: #### C BC #### [facility] [address] [place] [address] Dr. Karina Heath EIEC Not detected Normal NOT DETECTED The [facility] Comment on above: Performed By: #### C BC #### [facility] [address] [place] [address] Dr. Karina Heath EPEC Not detected Normal NOT DETECTED The [facility] Comment on above: Performed By: #### C BC #### [facility] [address] [place] [address] Dr. Karina Heath ETEC Not detected Normal NOT DETECTED The [facility] Comment on above: Performed By: #### C BC #### [facility] [address] [place] [address] Dr. Karina Heath G. Lamblia Not detected Normal NOT DETECTED The [facility] Comment on above: Performed By: #### C BC #### [facility] [address] [place] [address] Dr. Karina REDDY CONTROLS PASSED Normal The [facility] Comment on above: Performed By: #### C BC #### [facility] [address] [place] [address] Dr. Karina VELIZ AMARI HEADER GI PANEL BACTERIA Normal T [facility] Comment on above: Performed By: #### C BC #### [facility] [address] [place] [address] Dr. Karina MARTIN ECOLI GI PANEL DIARRHEAGEN IC E.COLI / SHIGELLA Normal [facility] Comment on above: Performed By: #### C BC #### [facility] [address] [place] [address] Dr. Karina MARTIN INFO SEE BELOW Normal The [facility] Comment on above: Result Comment: EAEC - Enteroaggregative E. Coli EPEC- Enteropathogenic E. Coli ETEC- Enterotoxigenic E. Coli lt/st STEC- Shigella-like toxin-producing E. Coli stx1/stx2 EIEC- Shigella/Enteroinvasive E. Coli Performed By: #### C BC #### [facility] [address] [address] [address] Karina MARTIN PARASITES GI PANEL PARASITES Normal The [facility] Comment on above: Performed By: #### C BC #### [facility] [address] [address] [address] Karina MARTIN VIRUS GI PANEL VIRUSES Normal The [facility] Comment on above: Performed By: #### C BC #### [facility] [address] [place] [address] Dr. Karina Heath Norovirus GI/GII Not detected Normal NOT DETECTED The [facility] Comment on above: Performed By: #### C BC #### [facility] [address] [place] [address] Dr. Karina Heath P. Shigelloides Not detected Normal NOT DETECTED The [facility] Comment on above: Performed By: #### C BC #### [facility] [address] [place] [address] Dr. Karina Heath Rotavirus A Not detected Normal NOT DETECTED The [facility] Comment on above: Performed By: #### C BC #### [facility] [address] [place] [address] Dr. Karina Heath Salmonella Not detected Normal NOT DETECTED The [facility] Comment on above: Performed By: #### C BC #### [facility] [address] [address] [address] Karina Heath Sapovirus Not detected Normal NOT DETECTED The [facility] Comment on above: Performed By: #### C BC #### [facility] [address] [place] [address] Dr. Karina Heath STEC Detected Critically abnormal NOT DETECTED The [facility] Comment on above: Performed By: #### C BC #### [facility] [address] [address] [address] Karina Heath Vibrio Not detected Normal NOT DETECTED The [facility] Comment on above: Performed By: #### C BC #### [facility] [address] [place] [address] Dr. Karina Heath Vibrio Cholera Not detected Normal NOT DETECTED The [facility] Comment on above: Performed By: #### C BC #### [facility] [address] [place] [address] Dr. Karina Heath Y. Enterocolitica Not detected Normal NOT DETECTED The [facility] Comment on above: Performed By: #### C BC #### [facility] [address] [place] [address] Dr. Karina Heath Covid-19 PCR ([facility]on 05-17 SARS-CoV-2 (COVID-19) RNA MEETA+probe Ql (Unsp spec) Detected Critically abnormal NOT DETECTED The [facility] Comment on above: Result Comment: This test is not yet approved or cleared by the [place] FDA. When there are no FDA-approved or cleared tests available, and other criteria are met, FDA can make tests available under an emergency access mechanism called an Emergency Use Authorization (EUA). The EUA for this test is supported by the [place] of Health and Human Service's declaration that [...] used). Performed By: #### P OCGLUC #### [facility] [address] [place] [address] Dr. Karina Heath CAROTID ART BILon 022 [...] RAMIRO BURNETT Date: 2022-04-28 18:57 Normal The [facility] Basic Metabolic Panel w/ Ref jose to MGon 04-19-2022 Anion gap [Moles/Vol] 13 mmol/L 9 - 17 mmol/L [facility] Calcium [Mass/Vol] 9.1 mg/dL 8.6 - 10. 4 mg/dL [facility] Chloride [Moles/Vol] 97 mmol/L Low 98 - 10 7 mmol/L [facility] CO2 [Moles/Vol] 23 mmol/L 20 - 31 mmol/L [facility] Creatinine [Mass/Vol] 1.46 mg/dL High 0.70 - 1.20 mg/dL [facility] GFR >60 >60 mL/min [facility] GFR Non- 52 mL/min Low >60 [facility] Glucose [Mass/Vol] 154 mg/dL High 70 - 99 mg/dL [facility] Interpretation and review of laboratory results Abnormal [facility] Potassium [Moles/Vol] 4.0 mmol/L 3.7 - 5.3 mmol/L [facility] Sodium [Moles/Vol] 133 mmol/L Low 135 - 144 mmol/L [facility] [employer] Urea nitrogen (BldV) [Mass/Vol] 39 mg/dL High 6 - 20 mg/dL [facility] [employer] Urea nitrogen/Creatinine (Bld) [Mass ratio] 27 High [facility] HOSPITALPrelert [facility] CBC with Auto Differentialon 04-19-2022 Absolute Eos # 0.13 [facility] Absolute Immature Granulocyte 0.04 [facility] Absolute Lymph # 1.66 [facility] SECO URS [facility] Absolute [place] # 0.72 [facility] SECOU RS [facility] Basophils (Bld) [#/Vol] 0.05 10*3/uL [facility] Basophils/100 WBC (Bld) 1 % 0 - 2 % [facility] Eosinophils/100 WBC (Bld) 1 % 1 - 4 % [facility] Hematocrit (Bld) [Volume fraction] 45.8 % 40.7 - 50.3 % [facility] Hemoglobin (Bld) [Mass/Vol] 15.2 g/dL 13.0 - 17.0 g/dL [facility] Immature granulocytes/100 WBC (Bld) 0 % 0 [facility] Interpretation and review of laboratory results Abnormal [facility] Lymphocytes/100 WBC (Bld) 16 % Low 24 - 43 % [facility] MCH (RBC) [Entitic mass] 28.1 pg 25.2 - 33.5 pg [facility] MCHC (RBC) [Mass/Vol] 33.2 g/dL 28.4 - 34.8 g/dL [facility] MCV (RBC) [Entitic vol] 84.8 fL 82.6 - 102.9 fL [facility] Monocytes/100 WBC (Bld) 7 % 3 - 12 % [facility] NRBC Automated 0.0 0.0 per 100 WBC [facility] Platelet distribution width (Bld) [Ratio] 13.4 % 11.8 - 14.4 % [facility] Platelet mean volume (Bld) [Entitic vol] 9.2 fL 8.1 - 13.5 fL [facility] Platelets (Bld) [#/Vol] 214 10*3/uL [facility] RBC (Bld) [#/Vol] 5.40 10*6/uL 4.21 - 5.7 7 m/uL [facility] Segmented neutrophils/100 WBC (Bld) 75 % High 36 - 65 % [facility] Segs Absolute 7.72 [facility] WBC (Bld) [#/Vol] 10.3 10*3/uL [facility] CT Head WO Contraston 2021 No acute intracrania l abnormality. [facility] EXAMINATION: CT OF THE HEAD WITHOUT [...] FINDINGS: BRAIN/VENTRICLES: No acute loss of the wnikler-white matter differentiation is identified to suggest acute [...] is intact. Extracranial soft tissues are unremarkable. [facility] Ajay Aggarwal M D - 04/19/2022 [...] are unremarkable. IMPRESSION: No acute intracranial abnormality. [facility] Work Phone: Radiology Study observation (narrative) [facility] Work Phone: CT Head WO ContrastOrdered B y: Ajay Aggarwal on 04-19-2022 [facility] Work Phone: Laboratory - Chemistry and C hemistry - challengeon 04-19-2022 GFR/1.73 sq M.predicted MDRD (S/P/Bld) [Vol rate/Area] [facility] Comment on above: Average GFR for 40-4 9 years old: 99 mL/min/1.73sq m Chronic Kidney Disease: <60 mL/min/1.73sq m Kidney failure: <15 mL/min/1.73sq m eGFR calculated using average adult body mass. Additional eGFR calculator available at: http://www.MRO/multiple_crcl_2012.htm Stage 1: Some kidney damage normal GFR Stage 2: Mild kidney damage GFR 60-89 Stage 3: Moderate kidney damage GFR 30-59 Stage 4: Severe kidney damage GFR 15-29 Stage 5: Severe kidney damage GFR <15 ESRD - chronic treatment by dialysis or transplant Protime-INRon 04-19-2022 INR Coag (Bld) [Relative time] 1.0 {INR} [facility] Comment on above: Non-therapeutic Range: INR = 0.9-1.2 Therapeutic Range: Moderate Anticoagulant Intensity: INR = 2.0-3.0 High Anticoagulant Intensity: INR = 2.5-3.5 PT Coag (PPP) [Time] 13.4 s Victrix Troponinon 04-19-2022 Troponin, High Sensitivity 18 ng/L 0 - 22 ng/L [facility] Comment on above: High Sensitivity Troponin values cannot be compared with other Troponin methodologies. Patients with high levels of Biotin oral intake (i.e >5mg/day) may have falsely decreased Troponin levels. Samples collected within 8 hours of biotin intake may require additional information for diagnosis. [facility] CBC with Auto Differentialon 04-04-2022 Absolute Eos # 0.08 [facility] Absolute Immature Granulocyte <0.03 [facility] Absolute Lymph # 1.53 [facility] Absolute [place] # 0.58 [facility] Basophils (Bld) [#/Vol] 0.05 10*3/uL [facility] Basophils/100 WBC (Bld) 1 % 0 - 2 % [facility] Eosinophils/100 WBC (Bld) 1 % 1 - 4 % [facility] Hematocrit (Bld) [Volume fraction] 44.8 % 40.7 - 50.3 % [facility] Hemoglobin (Bld) [Mass/Vol] 15.0 g/dL 13.0 - 17.0 g/dL [facility] Immature granulocytes/100 WBC (Bld) 0 % 0 [facility] Interpretation and review of laboratory results Abnormal [facility] Lymphocytes/100 WBC (Bld) 16 % Low 24 - 43 % [facility] MCH (RBC) [Entitic mass] 27.9 pg 25.2 - 33.5 pg [facility] MCHC (RBC) [Mass/Vol] 33.5 g/dL 28.4 - 34.8 g/dL [facility] MCV (RBC) [Entitic vol] 83.4 fL 82.6 - 102.9 fL [facility] Monocytes/100 WBC (Bld) 6 % 3 - 12 % [facility] NRBC Automated 0.0 0.0 per 100 WBC [facility] Platelet distribution width (Bld) [Ratio] 13.8 % 11.8 - 14.4 % [facility] Platelet mean volume (Bld) [Entitic vol] 10.1 fL 8.1 - 13.5 fL [facility] Platelets (Bld) [#/Vol] 208 10*3/uL [facility] RBC (Bld) [#/Vol] 5.37 10*6/uL 4.21 - 5.7 7 m/uL [facility] Segmented neutrophils/100 WBC (Bld) 76 % High 36 - 65 % [facility] Segs Absolute 7.18 [facility] WBC (Bld) [#/Vol] 9.4 10*3/uL [facility] CT Head WO Contraston 2021 No acute intracrania l abnormality. 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 [facility] EXAMINATION: CT OF THE HEAD WITHOUT [...] of the visualized skull or soft tissues. 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 [facility] Work Phone: Radiology Study observation (narrative) Neema Work Phone: CT Head WO ContrastOrdered B y: Faustino Milan on 04-04-2022 Neema Work Phone: Comprehensive Metabolic Pane l w/ Reflex to MGon 04-04-2022 Albumin [Mass/Vol] 4.4 g/dL 3.5 - 5.2 g/dL [facility] Albumin/Globulin [Mass ratio] 1.4 {ratio} [facility] ALP (Bld) [Catalytic activity/Vol] 108 U/L 40 - 129 U/L [facility] ALT [Catalytic activity/Vol] 24 U/L 5 - 41 U/L [facility] Anion gap [Moles/Vol] 12 mmol/L 9 - 17 mmol/L [facility] AST [Catalytic activity/Vol] 21 U/L <40 [facility] Bilirubin [Mass/Vol] 0.17 mg/dL Low 0.3 - 1 .2 mg/dL [facility] Calcium [Mass/Vol] 9.6 mg/dL 8.6 - 10. 4 mg/dL [facility] Chloride [Moles/Vol] 98 mmol/L 98 - 10 7 mmol/L [facility] CO2 [Moles/Vol] 24 mmol/L 20 - 31 mmol/L [facility] Creatinine [Mass/Vol] 1.36 mg/dL High 0.70 - 1.20 mg/dL [facility] Free PSA/Total PSA [Mass fraction] 7.5 g/dL 6.4 - 8.3 g/dL [facility] GFR >60 >60 mL/min [facility] GFR Non- 56 mL/min Low >60 [facility] Glucose [Mass/Vol] 270 mg/dL High 70 - 99 mg/dL [facility] Interpretation and review of laboratory results Abnormal [facility] Potassium [Moles/Vol] 4.0 mmol/L 3.7 - 5.3 mmol/L [facility] Sodium [Moles/Vol] 134 mmol/L Low 135 - 144 mmol/L [facility] Urea nitrogen (BldV) [Mass/Vol] 24 mg/dL High 6 - 20 mg/dL [facility] Urea nitrogen/Creatinine (Bld) [Mass ratio] 18 [facility] Glucose, Whole Bloodon 04-04 Glucose [Mass/Vol] 256 mg/dL High 74 - 100 mg/dL [facility] Interpretation and review of laboratory results Abnormal [facility] Laboratory - Chemistry and C hemistry - challengeon 04-04-2022 GFR/1.73 sq M.predicted MDRD (S/P/Bld) [Vol rate/Area] [facility] Comment on above: Average GFR for 40-4 9 years old: 99 mL/min/1.73sq m Chronic Kidney Disease: <60 mL/min/1.73sq m Kidney failure: <15 mL/min/1.73sq m eGFR calculated using average adult body mass. Additional eGFR calculator available at: http://www.[employer].[facility]/multiple_crcl_2012.htm Stage 1: Some kidney damage normal GFR Stage 2: Mild kidney damage GFR 60-89 Stage 3: Moderate kidney damage GFR 30-59 Stage 4: Severe kidney damage GFR 15-29 Stage 5: Severe kidney damage GFR <15 ESRD - chronic treatment by dialysis or transplant Vital Signs Date Time Vital Sign Value Performing Clinician Magen banks 10-06-2024 19:40-0500 Body temperature 98.49 [degF] Stanley Mckenzie MD Work Phone: [facility] 10-06-2024 19:40-0500 Diastolic blood pressure 91 mm[Hg] Stanley Mckenzie MD Work Phone: [facility] 10-06-2024 19:40-0500 Heart rate 74 /min Stanley Mckenzie MD Work Phone: [facility] 10-06-2024 19:40-0500 Respiratory rate 16 /min Stanley Mckenzie MD Work Phone: [facility] 10-06-2024 19:40-0500 SaO2% (BldA) [Mass fraction] 96 % Stanley Mckenzie MD Work Phone: [facility] 10-06-2024 19:40-0500 Systolic blood pressure 148 mm[Hg] Stanley Mckenzie MD Work Phone: [facility] 10-04-2024 06:00-0500 Body mass index (BMI) [Ratio] 26.03 kg/m2 Stanley Mckenzie MD Work Phone: [facility] 10-04-2024 06:00-0500 Body weight 82.3 kg Stanley Mckenzie MD Work Phone: [facility] 09-29-2024 16:41-0500 Body height 177.8 cm Stanley Mckenzie MD Work Phone: [facility] 09-28-2024 13:00-0500 Diastolic blood pressure 76 mm[Hg] Rashad Chavez MD Work Phone: [facility] 09-28-2024 13:00-0500 Heart rate 115 /min Rashad Chavez MD Work Phone: [facility] 09-28-2024 13:00-0500 Respiratory rate 25 /min Rashad Chavez MD Work Phone: [facility] 09-28-2024 13:00-0500 SaO2% (BldA) [Mass fraction] 100 % Rashad Chavez MD Work Phone: [facility] 09-28-2024 13:00-0500 Systolic blood pressure 157 mm[Hg] Rashad Chavez MD Work Phone: [facility] 09-28-2024 11:47-0500 Body temperature 37.0 Rashad Chavez MD Work Phone: [facility] 09-28-2024 11:05-0500 Body temperature 100.9 [degF] Rashad Chavez MD Work Phone: [facility] 09-28-2024 10:19-0500 Body mass index (BMI) [Ratio] 27.84 kg/m2 Rashad Chavez MD Work Phone: [facility] 09-28-2024 10:19-0500 Body weight 88 kg Rashad Chavez MD Work Phone: [facility] 09-28-2024 09:48-0500 Body temperature 37.0 Rashad Chavez MD Work Phone: [facility] 01-22-2024 15:44-0400 Body temperature 97.81 [degF] Sarmad Daly MD Work Phone: [facility] 01-22-2024 15:44-0400 Diastolic blood pressure 85 mm[Hg] Sarmad Daly MD Work Phone: [facility] 01-22-2024 15:44-0400 Heart rate 70 /min Sarmad Daly MD Work Phone: [facility] 01-22-2024 15:44-0400 Respiratory rate 11 /min Sarmad Daly MD Work Phone: [facility] 01-22-2024 15:44-0400 SaO2% (BldA) [Mass fraction] 98 % Sarmad Daly MD Work Phone: [facility] 01-22-2024 15:44-0400 Systolic blood pressure 138 mm[Hg] Sarmad Daly MD Work Phone: [facility] 01-21-2024 21:40-0400 Body height 177.8 cm Sarmad Daly MD Work Phone: [facility] 01-21-2024 21:40-0400 Body mass index (BMI) [Ratio] 27.93 kg/m2 Sarmad Daly MD Work Phone: [facility] 01-21-2024 21:40-0400 Body weight 88.3 kg Sarmad Daly MD Work Phone: [facility] 01-19-2024 01:32-0400 Diastolic blood pressure 82 mm[Hg] Steve Alvarado MD Work Phone: [facility] 01-19-2024 01:32-0400 Heart rate 87 /min Steve Alvarado MD Work Phone: [facility] 01-19-2024 01:32-0400 Respiratory rate 16 /min Steve Alvarado MD Work Phone: [facility] 01-19-2024 01:32-0400 SaO2% (BldA) [Mass fraction] 99 % Steve Alvarado MD Work Phone: [facility] 01-19-2024 01:32-0400 Systolic blood pressure 126 mm[Hg] Steve Alvarado MD Work Phone: [facility] 01-19-2024 00:46-0400 Body temperature 98.71 [degF] Steve Alvarado MD Work Phone: [facility] 01-18-2024 23:14-0400 Body height 177.8 cm Steve Alvarado MD Work Phone: [facility] 01-18-2024 23:14-0400 Body mass index (BMI) [Ratio] 27.26 kg/m2 Steve Alvarado MD Work Phone: [facility] 01-18-2024 23:14-0400 Body weight 86.18 kg Steve Alvarado MD Work Phone: [facility] 09-24-2023 18:52-0500 Diastolic blood pressure 85 mm[Hg] Reginaldo Beltran MD Work Phone: [facility] 09-24-2023 18:52-0500 Heart rate 98 /min Reginaldo Beltran MD Work Phone: [facility] 09-24-2023 18:52-0500 Respiratory rate 18 /min Reginaldo Beltran MD Work Phone: [facility] 09-24-2023 18:52-0500 SaO2% (BldA) [Mass fraction] 96 % Reginaldo Beltran MD Work Phone: [facility] 09-24-2023 18:52-0500 Systolic blood pressure 140 mm[Hg] Reginaldo Beltran MD Work Phone: [facility] 09-24-2023 17:07-0500 Body temperature 98.91 [degF] Reginaldo Beltran MD Work Phone: [facility] 09-22-2023 12:07-0500 SaO2% (BldA) [Mass fraction] 98.9 % Reginaldo Beltran MD Work Phone: [facility] 09-22-2023 04:00-0500 Body height 182.9 cm Reginaldo Beltran MD Work Phone: [facility] 09-22-2023 04:00-0500 Body mass index (BMI) [Ratio] 25.58 kg/m2 Reginaldo Beltran MD Work Phone: [facility] 09-22-2023 04:00-0500 Body weight 85.55 kg Reginaldo Beltran MD Work Phone: [facility] 09-21-2023 16:54-0500 SaO2% (BldA) [Mass fraction] 99.9 % Reginaldo Beltran MD Work Phone: [facility] 04-20-2022 00:26-0400 SaO2% (BldA) [Mass fraction] 97 % Lulú Bush DO Work Phone: [facility] [employer] 04-20-2022 00:15-0400 Diastolic blood pressure 88 mm[Hg] Lulú Bush DO Work Phone: [facility] [employer] 04-20-2022 00:15-0400 Heart rate 100 /min Lulú Bush DO Work Phone: [facility] [employer] 04-20-2022 00:15-0400 Respiratory rate 19 /min Lulú Bush DO Work Phone: [facility] [employer] 04-20-2022 00:15-0400 Systolic blood pressure 145 mm[Hg] Lulú Bush DO Work Phone: [facility] [employer] 04-19-2022 21:45-0400 Body temperature 96.8 [degF] Lulú Bush DO Work Phone: [facility] [employer] 04-04-2022 23:25-0400 Diastolic blood pressure 106 mm[Hg] Cheng Lira MD [facility] [employer] 04-04-2022 23:25-0400 Systolic blood pressure 198 mm[Hg] Cheng Lira MD [facility] [employer] 04-04-2022 23:15-0400 SaO2% (BldA) [Mass fraction] 94 % Cheng Lira MD [facility] [employer] 04-04-2022 21:58-0400 Body height 177.8 cm Cheng Lira MD [facility] [employer] 04-04-2022 21:58-0400 Body mass index (BMI) [Ratio] 27.26 kg/m2 Cheng Lira MD [facility] [employer] 04-04-2022 21:58-0400 Body temperature 97.2 [degF] Cheng Lira MD [facility] 04-04-2022 21:58-0400 Body weight 86.18 kg Cheng Lira MD [facility] [employer] 04-04-2022 21:58-0400 Heart rate 84 /min Cheng Lira MD [facility] [employer] 04-04-2022 21:58-0400 Respiratory rate 20 /min Cheng Lira MD [facility] Encounters Encounter Date Encounter Type Care Provider Facility Start: 12-11-2024 End: 12-11-2024 ambulatory VINCENT Campos [facility] Start: 12-11-2024 End: 12-11-2024 Subsequent hospital visit by physician Vincent Winters MD Work Phone: [facility] Start: 10-14-2024 End: 10-14-2024 ambulatory RHODA LUNA [facility] Start: 10-14-2024 End: 10-14-2024 Subsequent hospital visit by physician Vincent Winters MD Work Phone: [facility] Comment on above: 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) Start: 10-03-2024 End: 10-05-2024 Evaluation and management of inpatient Stanley Mckenzie MD Work Phone: [facility] Non-Invasive Cardiology Comment on above: Arrived Start: 09-28-2024 End: 10-06-2024 Evaluation and management of inpatient Stanley Mckenzie MD Work Phone: [facility] 1D Burn Unit Start: 09-28-2024 End: 09-28-2024 Emergency department patient visit Rashad Chavez MD Work Phone: [facility] Emergency Department Comment on above: Hypertensive encepha lopathy (Primary Dx); Diabetic ketoacidosis with coma associated with type 2 diabetes mellitus (HCC); Pneumonia of left lower lobe due to infectious organism; Altered mental status, unspecified altered mental status type; ABHIJIT (acute kidney injury) (HCC); Acute respiratory failure with hypoxia; Non compliance w medication regimen Start: 02-28-2024 End: 02-29-2024 ambulatory Felix LUKE Facility:[facility] Start: 02-28-2024 End: 02-28-2024 Patient encounter procedure Felix LUKE [facility] [place] Start: 01-19-2024 End: 01-22-2024 Evaluation and management of inpatient Sarmad Daly MD Work Phone: [facility] Onc/Med Surg Start: 01-18-2024 End: 01-19-2024 Emergency department patient visit Steve Alvarado MD Work Phone: [facility] ED Comment on above: Hypertensive encepha lopathy (Primary Dx); Hypertensive emergency Start: 10-16-2023 ambulatory VINCENT Campos Veena [facility] Start: 09-21-2023 End: 09-24-2023 Evaluation and management of inpatient NEUROLOGY CONSULT [facility] Start: 09-21-2023 End: 09-24-2023 Evaluation and management of inpatient Reginaldo Beltran MD Work Phone: [facility] Med Surg Comment on above: Acute respiratory fa ilure Start: 08-12-2023 End: 08-13-2023 ambulatory Jarod Aviles SHOT BLAST EQUIPMENT OPERATOR-WAREHOUSE PRICING AND INVENTORY CLERK Facility:[facility] Start: 05-13-2023 End: 05-14-2023 ambulatory Jarod Aviles SHOT BLAST EQUIPMENT OPERATOR-WAREHOUSE PRICING AND INVENTORY CLERK Facility:[facility] Start: 02-11-2023 End: 02-12-2023 ambulatory Jarod Aviles SHOT BLAST EQUIPMENT OPERATOR-WAREHOUSE PRICING AND INVENTORY CLERK Facility:[facility] Start: 01-11-2023 End: 01-12-2023 [...] patient visit Lulú Bush DO Work Phone: [facility] ED Comment on above: Essential hypertensi on (Primary Dx); Acute headache, unspecified headache type Start: 04-04-2022 End: 04-05-2022 Emergency department patient visit Cheng Lira MD [facility] ED Comment on above: Acute nonintractable headache, [...] Start: 10-05-2024 EEG VIDEO MONITORING Rafa Restrepo SHOT BLAST EQUIPMENT OPERATOR - WAREHOUSE PRICING AND INVENTORY CLERK Work Phone: Start: 10-05-2024 Electroencephalogram w/rec awake&drowsy [...] test non-tr eponemal antibody qual Mary Lou Roísd DO Work Phone: Start: 10-04-2024 Diagnostic lumbar [...] Myocardial spect mul tiple studies Aleja Wagoner SHOT BLAST EQUIPMENT OPERATOR - TECHNICAL SUPPORT AGENT Work Phone: Start: 10-03-2024 Glucose blood reagent [...] EXTUBATION Aidee bryant MD Work Phone: Start: 6 End: 10-01-2024 Calcium ionized Sirena Sanchez MD [...] Start: 01-22-2024 Glucose blood reagent strip Trino Gillliand MD Work Phone: Start: 01-22-2024 Mri brain [...] with white cell differential, automated Cecil Ivan SHOT BLAST EQUIPMENT OPERATOR-[facility] Work Phone: Start: 09-24-[address] janessa Ivan APRN-[facility] Work Phone: Start: 09-23-2023 Electroencephalogram w/rec awake&drowsy Aracely Richard [facility] Work Phone: Start: 09-23-2023 Echo tthrc r-t 2d w/ wom-mode compl spec&colr d Cecil Ivan SHOT BLAST EQUIPMENT OPERATOR-[facility] Work Phone: Start: 09-23-2023 End: 09-23-2023 Renal function panel Cecil Ivan [facility] Work Phone: Start: 09-23-2023 Gluc bld gluc mntr d ev cleared fda spec home use Karl Bird MD Start: 09-22-2023 Gluc bld gluc mntr d ev cleared fda spec home use Karl Bird MD Start: 09-22-2023 Gluc bld gluc mntr d ev cleared fda spec home use Karl Bird MD Start: 09-22-2023 Mri brain brain stem w/o contrast material Aracely Richard [facility] Work Phone: Start: 09-22-2023 End: 09-22-2023 Gluc bld gluc mntr dev cleared fda spec home use Karl Bird MD Start: 09-22-2023 Iadna multiple organ isms amplified probe tq Cecil Larabrianna SHOT BLAST EQUIPMENT OPERATOR-[facility] Work Phone: Start: 09-22-2023 End: 09-22-2023 Drug tst prsmv instrmnt chem analyzers pr date Cecil Moralesjennifer SHOT BLAST EQUIPMENT [facility] Work Phone: Start: 09-22-2023 Gluc bld [...] (Diabetes, CKD 3-4, OR last GFR 15-59) [facility] Start: 10-06-2025 [facility] Start: 10-05-2025 GFR test (Diabetes, CKD 3-4, OR last GFR 15-59) GFR test (Diabetes, CKD 3-4, OR last GFR 15-59) [facility] Start: 10-01-2025 Lipid panel [facility] Start: 09-28-2025 GFR test (Diabetes, CKD 3-4, OR last GFR 15-59) GFR test (Diabetes, CKD 3-4, OR last GFR 15-59) [facility] Start: 09-28-2025 Hemoglobin A1c measurement [facility] Start: 03-07-2025 End: 03-07-2025 Patient encounter procedure 03/07/2025 12:00 PM EDT Office Visit [facility] [address] [place] [address] Aide Sharma, DO [address] [place] [address] Abnormal kidney function/ type two DM [facility] Comment on above: Abnormal kidney function/ type two DM Start: 03-06-2025 End: 03-06-2025 Patient encounter procedure 03/06/2025 10:00 AM EDT Office Visit [address] [place] [address] Levi Hilton MD [address] [place] [address] [address] [place] [address] BLE Edema; 3 month follow up [facility] Comment on above: BLE Edema; 3 month follow up Start: 01-21-2025 [facility] Start: 01-17-2025 GFR test (Diabetes, CKD 3-4, OR last GFR 15-59) GFR test (Diabetes, CKD 3-4, OR last GFR 15-59) [facility] Start: 12-15-2024 End: 12-15-2024 Nursing evaluation of patient and report 12/15/2024 9:45 AM EST Nurse Only [employer]ilyn [employer] Ailyn [address] [facility] [address] [place] [address] [employer] REMOTE loop- Ailyn [employer] Sulaiman Robertson Comment on above: [employer]link REMOTE loop- Start: 12-11-2024 End: 12-11-2024 Patient encounter procedure 12/11/2024 2:30 PM EST Office Visit [facility]ilyn [employer] - [place] [address] [place] [id number] Levi Keith MD [address] [facility]. [address] [place] [address] [facility] [employer] - [place] Comment on above: loop Start: 11-02-2024 End: 10-02-2025 MR Brain WO and W contrast IV [facility] [facility] Start: 10-13-2024 End: 10-06-2025 Basic metabolic 2000 panel - Serum or Plasma [facility] Start: 06-17-2024 COVID-19 Vaccine ( season) COVID-19 Vaccine ( season) [facility] Start: 06-17-2024 COVID-19 Vaccine ( season) COVID-19 Vaccine ( season) [facility] Start: 06-17-[address] [facility] Start: 05-17-2024 Influenza vaccination [facility] Start: 05-17-2024 [facility] Start: 04-19-2024 Hemoglobin A1c measurement [facility] Start: 12-20-2023 Shingles vaccine (1 of 2) Shingles vaccine (1 of 2) [facility] Start: 12-20-2023 [facility] Start: 06-17-2023 COVID-19 VACCINE ( season) COVID-19 VACCINE ( season) [facility] Start: 06-17-2023 Influenza vaccination INFLUENZA VACCINE (#1) [facility] Start: 06-17-2023 [facility] Start: 10-31-2022 Lipid panel [facility] Start: 10-27-2022 Hemoglobin A1c measurement A1C test (Diabetic or Prediabetic) [facility] Start: 06-17-2022 Influenza vaccination [facility] Start: 01-25-2022 Hemoglobin A1c measurement A1C test (Diabetic or Prediabetic) [facility] Start: 04-21-2021 COVID-19 Vaccine (2 - Booster for Asher series) COVID-19 Vaccine (2 - Booster for Asher series) [facility] Start: 2018 Screening for malignant neoplasm of colon [facility] Start: 2013 Lipid panel LIPID SCREENING [facility] Start: 1992 DTaP/Tdap/Td vaccine (1 - Tdap) DTaP/Tdap/Td vaccine (1 - Tdap) [facility] Start: 1992 Hepatitis B vaccine (1 of 3 - 19+ 3-dose series) Hepatitis B vaccine (1 of 3 - 19+ 3-dose series) [facility] Start: 1992 Hepatitis B vaccine (1 of 3 - Risk 3-dose series) Hepatitis B vaccine (1 of 3 - Risk 3-dose series) [facility] Start: 1992 Pneumococcal 50+ years Vaccine (1 of 2 - PCV) Pneumococcal 50+ years Vaccine (1 of 2 - PCV) [facility] Start: 1992 Third diphtheria, tetanus and acellular pertussis (DTaP) vaccination TDAP (ADULT) [facility] Start: 1992 [facility] Start: 12-20-1991 Diabetic retinal exam Diabetic retinal exam [facility] Start: 12-20-1991 Glaucoma screening [facility] Start: 12-20-1991 Hepatitis C screening [facility] Start: 12-20-1991 Urine screening for protein [facility] Start: 1988 HIV screening [facility] Start: 1985 Depression Screen Depression Screen [facility] Start: 1985 [facility] Start: 12-20-1983 Diabetic foot examination [facility] Start: 12-20-1979 Pneumococcal 0-64 years Vaccine (1 - PCV) Pneumococcal 0-64 years Vaccine (1 - PCV) [facility] Start: 12-20-1979 Pneumococcal 0-64 years Vaccine (1 of 2 - PCV) Pneumococcal 0-64 years Vaccine (1 of 2 - PCV) [facility] Start: 12-20-1979 PNEUMOCOCCAL VACCINE SERIES (1 - PCV) PNEUMOCOCCAL VACCINE SERIES (1 - PCV) [facility] Start: 12-20-1979 [facility] Start: 1973 Hepatitis B vaccine (1 of 3 - 3-dose series) Hepatitis B vaccine (1 of 3 - 3-dose series) [facility] Start: 1973 Hepatitis C screening HEPATITIS C VIRUS SCREENING [facility] Start: 1973 Tetanus vaccination TETANUS [facility] Start: 1973 [facility] Bacteria identified in Blood by Culture [facility] End: 01-26-2024 Basic metabolic 2000 panel - Serum or Plasma [facility] Work Phone: End: 10-01-2024 Basic metabolic 2000 panel - Serum or Plasma Basic Metabolic Panel Lab Timed Every 4 Hours (Lab) for 3 Days starting 09/28/2024 until 10/01/[address] [facility] Comment on above: Every 4 Hours (Lab) for 3 Days starting 09/28/2024 until 10/01/2024 End: 10-09-2024 Basic metabolic 2000 panel - Serum or Plasma [facility] End: 01-19-2024 BRUCELLA SEROLOGY [facility] End: 01-25-2024 CBC W Auto Differential panel - Blood [facility] Continuous pulse oximetry TRIP N [facility] Continuous pulse oximetry n [facility] End: 09-21-2023 CT Cervical spine WO contrast [facility] Comment on above: One Time for 1 Occurrences starting 03/2023 until 09/21/2023 CT Head WO contrast CT Head W/O Contrast Imaging CODE STROKE 01/18/2024 10:52 PM EDT [facility] Culture, Blood 1 [facility] End: 09-28-2024 Culture, Blood [address] [facility] Comment on above: One Time for 1 Occurrences starting 09/16 until 09/28/2024 End: 09-28-2024 Culture, Blood [address] [facility] Comment on above: One Time for 1 Occurrences starting 09/16 until 09/28/2024 Culture, CSF (with G natasha Stain) [facility] End: 01-19-2024 Culture, Respiratory [facility] EKG 12 Lead EKG 12 Lead ECG STAT 01/18/2024 10:42 PM EDT [facility] EKG 12 Lead EKG 12 Lead ECG STAT 09/28/2024 9:20 AM EST [facility] [place] [facility] End: 01-22-2024 [facility]encephalogram w/rec awake&drowsy [facility] Glucose [Mass/volume ] in Serum or Plasma [facility] End: 09-28-2024 Glucose [Mass/volume] in Serum or Plasma [facility] Comment on above: One Time for 1 Occurrences starting 09/16 until 09/28/2024 As Needed until disc ontinued starting 09/28/2024 Glucose [Mass/volume ] in Serum or Plasma [facility] End: 09-28-2024 Hemoglobin A1c/Hemoglobin.total in Blood [facility] Comment on above: One Time for 1 Occurrences starting 09/16 until 09/28/2024 End: 09-22-2023 HERPES SIMPLEX VIRUS (HSV) TYPES 1/2, DNA PCR [facility] Comment on above: One Time for 1 Occurrences starting 04/2023 until 09/22/2023 End: 01-19-2024 Lumbar Puncture [facility] Work Phone: End: 01-26-2024 Magnesium [Mass/volume] in Serum or Plasma [facility] End: 10-01-2024 Magnesium [Mass/volume] in Serum or Plasma Magnesium Lab Timed Every 4 Hours (Lab) for 3 Days starting 09/28/2024 until 10/01/2024 [facility] Comment on above: Every 4 Hours (Lab) for 3 Days starting 09/28/2024 until 10/01/2024 Mechanical Ventilati on with default initial settings Mechanical Ventilation with default initial settings Respiratory Care STAT Every 4hr until discontinued starting 09/28/2024 [facility] [place] [facility] Comment on above: Every 4hr until discontinued starting End: 01-23-2024 METANEPHRINES URINE [facility] End: 01-22-2024 MISCELLANEOUS SENDOUT ENC2 [facility] - autoimmune/paraneoplastic encephalitis panel [facility] MISCELLANEOUS SENDOU T [place] lab test ID: ENC [address] [facility] End: 01-22-2024 Oligoclonal Banding [facility] Oxygen therapy [Mini mum Data Set] [facility] Oxygen therapy [[facility] mum Data Set] [facility] End: 01-26-2024 Phosphate [Mass/volume] in Serum or Plasma [facility] End: 10-01-2024 Phosphate [Mass/volume] in Serum or Plasma Phosphorus Lab Timed Every 4 Hours (Lab) for 3 Days starting 09/28/2024 until 10/01/[address] [facility] Comment on above: Every 4 Hours (Lab) for 3 Days starting 09/28/2024 until 10/01/2024 End: 01-19-2024 Q FEVER ANTIBODY [facility] End: 09-28-2024 Radiologic exam abdomen 1 view XR ABDOMEN FOR NG/OG/NE TUBE PLACEMENT Imaging Routine Once for 1 Occurrences starting 09/28/2024 until 09/28/[address] [facility] Comment on above: Once for 1 Occurrences starting 09/28/20 until 09/28/2024 End: 10-05-2024 US Heart Transesophageal [facility] End: 01-19-2024 West Nile Virus, CSF [facility] Immunizations Immunization Date Immunization Notes Care Provider Maylin ibarra 02-24-2021 SARS-CoV-2 (COVID-19 ) Ad26 vaccine, recombinant Felix LUKE [facility] Comment on above: Result Comment: 2023: TPV40 NEGATED: Highlighted row has not occurred!09-04-2019 influenza virus vaccine, unspecified formulation Felix LUKE [facility] Payers Date Payer Category Payer Unknown 1975 Unknown [id number] 2.16.84 0.1.660472.3.579.2.593 1975 Unknown [id number] 2.16.84 0.1.508554.3.579.2.593 1975 Unknown [id number] 2.16.84 0.1.703248.3.579.2.593 1973 Unknown [id number] 2.16.84 0.1.428296.3.579.2.593 1973 Unknown [id number] 2.16.84 0.1.965479.3.579.2.593 1973 Unknown [id number] 2.16.84 0.1.173343.3.579.2.593 1973 Unknown [id number] 2.16.84 0.1.567534.3.579.2.593 1973 Unknown [id number] 2.16.84 0.1.720874.3.579.2.593 1973 Unknown [id number] 2.16.84 0.1.940545.3.579.2.593 1973 Unknown [id number] 2.16.84 0.1.731262.3.579.2.593 1973 Unknown [id number] 2.16.84 0.1.994083.3.579.2.593 1973 Unknown [id number] 2.16.84 0.1.898846.3.579.2.593 1973 Unknown [id number] 2.16.84 0.1.035616.3.579.2.593 1973 Unknown [id number] 2.16.84 0.1.627345.3.579.2.593 1973 Unknown [id number] 2.16. 840.1.852225.3.579.2.196 1973 Unknown [id number] 2.16. 840.1.674895.3.579.2.196 1973 Unknown [id number] 2.16. 840.1.614024.3.579.2.196 1973 Unknown [id number] 2.16.84 0.1.509637.3.579.2.1286 1973 Unknown [id number] 2.16.8 40.1.129141.3.579.2.983 1973 Unknown [id number] 2.16.8 40.1.394379.3.579.2.727 1973 Unknown [id number] 2.16. 840.1.135676.3.579.2.175 1973 Unknown [id number] 2.16. 840.1.977312.3.579.2.175 1973 Unknown [id number] 2.16.8 40.1.492125.3.579.2.173 1973 Unknown [id number] 2.16.8 40.1.580898.3.579.2.173 1973 Unknown [id number] 2.16.8 40.1.015250.3.579.2.173 1973 Unknown [id number] 2.16.8 40.1.796011.3.579.2.173 1961 Self-pay 1961 Unknown [id number] 1. [id number]15 Social History Date Type Detail Facility Start: 10-27-2021 End: 12-11-2024 Tobacco smoking status [facility] Never smoked tobacco [employer] Phone: Start: 10-27-2021 End: 12-11-2024 Tobacco use and exposure User of smokeless tobacco [employer] Phone: History of tobacco use Chews Tobacco [employer] Phone: Start: 04-04-2022 End: 12-11-2024 Alcohol intake Ex-drinker (finding) [employer] Phone: Start: 1975 Sex Assigned At Not on file [employer] Phone: Start: 03-25-2022 End: 04-19-2022 Exposure to SARS-CoV-2 (event) Not sure [employer] Phone: Start: 09-23-2023 Tobacco use and exposure Smoke less tobacco non-user [employer] Start: 09-23-2023 End: 10-01-2024 History of Social function [facility] Start: 09-23-2023 End: 10-01-2024 Tobacco use panel [facility] Has the electric, [employer], [employer], or water company threatened to shut off services in your home in past 12Mo [facility] Medical Equipment Procedure Code Equipment Code Equipment Origin al Text Equipment Identifier Dates ()[id number] Start: 10-05-2024 Use it once daily [id number] Start: 10-06-2024 1 each by Does n ot apply route daily [id number] Start: 10-06-2024 Clinical Notes 04-19-2022 to 10-14-2024 Note Date & Type Note Facility 10-14-2024 Evaluation note Diagnosis Stage 3a chronic kidney disease (HCC) documented in this encounter [facility]12-21-2024 History of Present illness Narrative* Delmy Anderson [...] Tom DO - 10/06/2024 8:55 AM EST [facility] Neurology IN-PATIENT SERVICE NEUROLOGY PROGRESS NOTE [...] night. He was taken tot ED at [facility]. Found to have significant elevation in [...] He was transferred to medical ICU at [facility]. Currently he is seen here at [place] ICU. Propofol drip is currently running. He [...] fluro performed by Vincent Kuhn DO at [facility] OR Medications during admission: amLODIPine 10 mg [...] Mental status Awake, oriented to person, place ([facility]), time (09/2024), able to name days [...] Intact to touch, pin throughout Cerebellar Intact nycliq-tels-yapeps testing with mild bilateral kinetic tremor Reflex [...] report to follow. 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 ADRIAN BRYANT MD Diplomate, [place] Board of Psychiatry and Neurology Diplomate, [place] Board of Clinical Neurophysiology Diplomate, [place] Board of Epilepsy Results for orders placed [...] collection present. The proximal portions of the [place] demonstrate normal flow voids. ORBITS: [...] to operate a motor vehicle in the [facility] until he has been seizure free [...] epilepticus was discussed. Mary Lou Tom DO [facility] [place] [facility] * Chung Noel MD - 10/06/2024 [...] Week and faxed to Dr. Sanchez at [phone] . Will need to follow up with [...] Corey Echevarria MD Internal Medicine Resident, PGY-3 [facility]; [place], [place] 10/06/2024, 8:33 AM Attending Physician Statement [...] FACP 10/06/2024 4:11 PM [facility] * Trudi Russell, PT - 10/05/2024 3:32 PM EST Physical Therapy Facility/Department: [address] [facility] Physical Therapy Initial Evaluation [...] He was taken to the ED at [facility].Found to have significant elevation in his [...] He was transferred to medical ICU at [facility]. 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 I called Laura at [phone]. We discussed monitoring blood sugar and taking [...] STRAUSS RN * Kevin Sifuentes APRN - WAREHOUSE PRICING AND INVENTORY CLERK - 10/05/2024 11:29 AM EST Neurology Nurse [...] who was admitted as a transfer from [facility] on 09/28/2024 for management of hypertensive encephalopathy and DKA. As per medical records daughter found the patient confused on the bathroom floor covered in urine and feces. Last known well was the night of 09/27/2024; unsure about exact time. Family reported similar prior episodes in the setting of medication noncompliance. EMS were called who transferred the patient to [facility] on the morning of 09/28/2024. Upon arrival [...] agitation while intubated. Patient was transferred to [facility] for [facility]is [facility] on 09[facility]28[facility]. Neurology was consulted for altered [...] patient had a similar admission in09/2023 at [facility] with hypertensive crisis, acute respiratory failure requiring [...] fluro performed by Vincent Kuhn DO at [facility] OR PHYSICAL EXAM: Blood pressure (!) 154/81, [...] 10/05/2024 TSH 1.19 10/03/2024 INR 1.1 10/04/2024 [id number] 10/03/2024 FOLATE 11.5 10/03/2024 LABA1C 09/28/2024 [...] to ensure the accuracy of this automated guidance services coordinator, some errors in guidance services coordinator may have occurred. Associated attestation - Mary [...] from the original note were not included. [facility] Office: [phone] Andrew Hernandez DO, Ernie Escalante DO, Hal [...] CNP, Maame Carter, PARKER, Edilma Garza, PARKER [facility] IN-PATIENT SERVICE [facility] Progress Note 10/05/2024 10:48 AM Name: Ortiz Gorman Acct: [id number] Room: [id number][facility] Day: 7 Admit Date: 09/28/2024 2:35 PM PCP: Vincent Winters MD Code Status: Full Code Subjective: C/C: SOB Interval History Status: improved. Patient seen and examined at bedside, no acute events overnight. He just came back from cardiac [employer]idential [employer] where he had loop recorder placed, tolerated [...] 09:42 AM POCPCO2 33.7 10/01/2024 04:26 AM PDH9UUJ 35.2 09/28/2024 09:42 AM POCPO2 143.0 10/01/2024 04:26 AM PO2ART 72.2 09/28/2024 09:42 AM POCHCO3 25.1 10/01/2024 04:26 AM MNM1FQI 20.6 09/28/2024 09:42 AM NBEA 3.7 09/28/2024 09:42 AM PBEA 1.5 10/01/2024 04:26 AM KQFU2VEO 99.4 10/01/2024 04:26 AM L7USZFBY 94.5 09/28/2024 09:42 AM FIO2 30.0 10/01/2024 [...] (Principal) DKA, type 2, not at goal ([facility]) 09/28/2024 Yes NSTEMI (non-ST elevated myocardial infarction) ([facility]) 09/29/2024 Yes Acute metabolic encephalopathy [...] home and giving insulin, patient verbalized understanding. Chemical Etching Processor reached out to diabetes education for physical copies of information and patient daughter Shania was requesting information and education. Diabetes education dropped off information for Shania and also educated over the phone. 1700: Patient, daughter Shania, and patient girlfriend in room for education regarding medication compliance and what should be expected at home. Patient and visitors verbalized understanding. Chemical Etching Processor and visitors made a plan for discharge for patient daughter to be present in the discharge informationeducation since he will be living with her. Patient agreeable at this time. * Giancarlo Wagonergarett Valentin, SHOT BLAST EQUIPMENT OPERATOR - TECHNICAL SUPPORT AGENT - 10/04/2024 2:59 PM EST Images from the original note were not included. [employer] Progress Note Date: 10/04/2024 Patient name: Ortiz [...] ms QTc Calculation (Bazett) 456 ms P [place] 79 degrees R [place] 68 degrees T [place] 68 degrees Narrative Sinus tachycardia Possible Left atrial enlargement Nonspecific ST abnormality Abnormal ECG No previous ECGs available Echo: Results for orders placed or performed during the hospital encounter of 10/27/21 Echocardiogram complete 2D with doppler with color Result Value Ref Range Left Ventricular Ejection Fraction [address] [facility] Transthoracic Echocardiography Report (TTE) Patient Name SHERIF Date of Study 10/30/2021 ORTIZ Quezada Date of 1975 Gender Male Age 45 year(s) Race Room Number I307 Height: 71 inch, 180.34 cm Corporate ID [id number] Weight: 174 pounds, 78.9 kg # Patient Acct [id number] BSA: 1.99 m^2 BMI: 24.27 # kg/m^2 MR # [id number] [employer]hanger Work,Raysa Interpreting Physician Sammie Sher Fellow Referring Nurse Sarita Arzola CNP Practitioner Interpreting Referring Physician Fellow Type of Study TTE procedure:2D Echocardiogram, M-Mode, Doppler, Color Doppler. Procedure Date Date: 10/30/2021 Start: 02:34 PM Study Location: [facility] Indications:Tachycardia. History / Tech. Comments: Dx: tachycardia, [...] (Principal) DKA, type 2, not at goal ([facility]) 09/28/2024 Yes NSTEMI (non-ST elevated myocardial infarction) ([facility]) 09/29/2024 Yes Acute metabolic encephalopathy 09/30/2024 Yes Acute hypoxemic respiratory failure 09/28/2024 Yes Abnormal finding on MRI of brain 10/01/2024 Yes Abnormal electrocardiography 10/03/2024 Yes ABHIJIT (acute kidney injury) ([facility]) 10/04/2024 Yes Stage 3 chronic kidney disease ([facility]) 10/04/2024 Yes Hypertension 10/04/2024 Yes Seizures ([facility]) 10/04/2024 Yes Assessment: Elevated Troponins- likely type II ND HTN emergency- off cardene drip AMS-extubated on [...] , please keep patient NPO after midnight [place] [employer] [phone] * Joseline Teague RN - 10/04/2024 1:31 [...] Please refer again if needed or call [phone] if family requests diabetes education. Thank you [...] from the original note were not included. [facility] Office: [phone] Andrew Hernandez DO, Ernie Escalante, DO, Hal Atwood, DO, Carlos Trejo, DO, Ora Sharp MD, Dawna Chaney MD, Bassam Sher MD, Rhoda Luna MD, Lc Ibarra MD, Elyssa Yee MD, Jeimy Mireles MD, Franck Solis, DO, Jelena Damon MD, Rashid Mathew MD, Felix Hernandez, DO, Suzan Abbasi MD, Kulwinder Polk DO, Adriana Abdalla MD, Trino Gilliland MD, Peggy oCok MD, Clovis Mares MD, Db Lindquist MD, Judy Alvarez MD, Anne Quan MD, Roseline Forrest MD, Denilson Oliveira MD, Vilma Steel MD, Ludmila Best, DO, Bradly Nassar MD, Sarita Mcmullen,WAREHOUSE PRICING AND INVENTORY CLERK, Linda Lynch WAREHOUSE PRICING AND INVENTORY CLERK, Ludmila Aguilera, WAREHOUSE PRICING AND INVENTORY CLERK, Lina Morgan, JENNA, Nini Raya, WAREHOUSE PRICING AND INVENTORY CLERK, Giuliana Mae, WAREHOUSE PRICING AND INVENTORY CLERK, Myra Almodovar, WAREHOUSE PRICING AND INVENTORY CLERK, Suzy Dooley, WAREHOUSE PRICING AND INVENTORY CLERK, Gaviota Rich PASulaimanC, GLADIS FosterC, Shelly Rainey,WAREHOUSE PRICING AND INVENTORY CLERK, Manny Laura, WAREHOUSE PRICING AND INVENTORY CLERK, Yenny Motta, WAREHOUSE PRICING AND INVENTORY CLERK, Claudine Parrish, WAREHOUSE PRICING AND INVENTORY CLERK, Maame Carter, WAREHOUSE PRICING AND INVENTORY CLERK, Edilma Garza, WAREHOUSE PRICING AND INVENTORY CLERK [facility] IN-PATIENT SERVICE [facility] Progress Note 10/04/2024 10:02 AM Name: Ortiz Gorman Acct: [id number] Room: [id number] Day: 6 Admit Date: 09/28/2024 2:35 PM [...] 09:42 AM POCPCO2 33.7 10/01/2024 04:26 AM VID6NOG 35.2 09/28/2024 09:42 AM POCPO2 143.0 10/01/2024 04:26 AM PO2ART 72.2 09/28/2024 09:42 AM POCHCO3 25.1 10/01/2024 04:26 AM OYK2XLS 20.6 09/28/2024 09:42 AM NBEA 3.7 09/28/2024 09:42 AM PBEA 1.5 10/01/2024 04:26 AM BINJ2PIY 99.4 10/01/2024 04:26 AM [id number] 94.5 09/28/2024 09:42 AM FIO2 30.0 10/01/2024 [...] (Principal) DKA, type 2, not at goal ([facility]) 09/28/2024 Yes NSTEMI (non-ST elevated myocardial infarction) ([facility]) 09/29/2024 Yes Acute metabolic encephalopathy [...] Diabetic ketoacidosis. Resolved Hypertensive emergency manifesting as ABIHJIT/PRESS Left lower lobe pneumonia Acute hypoxic respiratory [...] Corey Echevarria MD Internal Medicine Resident, PGY-3 [facility]; [place], [place] 10/04/2024, 9:11 AM Attending Physician Statement [...] Tom, DO - 10/04/2024 8:45 AM EST [facility] Neurology IN-PATIENT SERVICE NEUROLOGY PROGRESS NOTE [...] night. He was taken tot ED at [facility]. Found to have significant elevation in [...] He was transferred to medical ICU at [facility]. Currently he is seen here at [place] ICU. Propofol drip is currently running. He [...] fluro performed by Vincent Kuhn DO at [facility] OR Medications during admission: levoFLOXacin 250 mg [...] Mental status Awake, oriented to person, place ([facility]), time (09/2024), following all commands; speech [...] Intact to touch, pin throughout Cerebellar Intact prathy-pjsd-gdamlz testing with mild bilateral kinetic tremor Reflex [...] report to follow. LABA1C >16.5 (H) 09/28/2024 [id number] 10/03/2024 MG 2.2 09/29/2024 PHOS 4.5 [...] showed no abnormalities. ADRIAN BRYANT MD Diplomate, [place] Board of Psychiatry and Neurology Diplomate, [place] Board of Clinical Neurophysiology Diplomate, [place] Board of Epilepsy Please note this is [...] collection present. The proximal portions of the [place] demonstrate normal flow voids. ORBITS: [...] attending, Dr. Luna. Mary Lou Tom DO [facility] Neurology * Delmy Anderson RN - 10/04/2024 3:35 AM EST 0245 - RN to bedside to find pt attempting to exit the bed and disconnected from LTME. Neuro resident aware. 0255 - square dance caller marketing technology specialist called to replace LTME monitoring. 0257 - square dance caller marketing technology specialist stated they would come replace LTME monitoring. 0444 - RN messaged marketing technology specialist asking for an updated eta to replace monitoring. 0445 - square dance caller tech stated they will be here [...] from the original note were not included. [facility] Occupational Therapy Not Seen Note DATE: 10/03/2024 [...] 1400 pt stated he knows he's at [facility] in [place] and that today September 2024. Pt is calm and pleasant but convinced that he was in a football field and got spray painted with red paint. Pt continues to ask for his cellphone and hat, neither of which are here. * Aleja Wagoner APRN - TECHNICAL SUPPORT AGENT - 10/03/2024 12:00 PM EST Images from the original note were not included. [place] [employer] Progress Note Date: 10/03/2024 Patient name: Ortiz [...] ms QTc Calculation (Bazett) 456 ms P [place] 79 degrees R [place] 68 degrees T [place] 68 degrees Narrative Sinus tachycardia Possible Left atrial enlargement Nonspecific ST abnormality Abnormal ECG No previous ECGs available Echo: Results for orders placed or performed during the hospital encounter of 10/27/21 Echocardiogram complete 2D with doppler with color Result Value Ref Range Left Ventricular Ejection Fraction 60 LVEF [address] ECHO Narr[address] [facility] Transthoracic Echocardiography Report (TTE) Patient Name SHERIF Date of Study 10/30/2021 ORTIZ Quezada Date of 1975 Gender Male Age 45 year(s) Race Room Number I307 Height: 71 inch, 180.34 cm Corporate ID [id number] Weight: 174 pounds, 78.9 kg # Patient Acct [id number] BSA: 1.99 m^2 BMI: 24.27 # kg/m^2 MR # [id number] Paperhanger Raysa De La Torre Interpreting Physician Sammie Sher Fellow Referring Nurse Sarita Arzola CNP Practitioner Interpreting Referring Physician Fellow Type of Study TTE procedure:2D Echocardiogram, M-Mode, Doppler, Color Doppler. Procedure Date Date: 10/30/2021 Start: 02:34 PM Study Location: [facility] Indications:Tachycardia. History / Tech. Comments: Dx: tachycardia, [...] (Principal) DKA, type 2, not at goal ([facility]) 09/28/2024 Yes NSTEMI (non-ST elevated myocardial infarction) ([facility]) 09/29/2024 Yes Acute metabolic encephalopathy 09/30/2024 Yes Acute hypoxemic respiratory failure 09/28/2024 Yes Abnormal finding on MRI of brain 10/01/2024 Yes Assessment: Elevated Troponins- likely type II ND HTN emergency- off cardene drip AMS-extubated on 10/01 ABHIJIT Sepsis 2/2 pneumonia DKA Normal TTE 01/2024 Plan: Hemodynamically stable - continue asa , statin Norvasc and coreg ECHO as above Volume management per nephrology Awaiting stress test if low risk then can be discharged from cardiac standpoint [place] [employer] [phone] * Jerod De La Cruz RPH - [...] mg/dL. Estimated Daily Nutrient Needs: Energy (kcal): 2886-3294 kcal/d Weight Used for Energy Requirements: Current [...] time Sunshine Carmona MS, RDN, LDN Contact: [phone] * Joseline Teague RN - 10/03/2024 8:26 [...] She took my number (Diabetes Education Ph. [phone]) and the plan is that she will [...] per DKA orderset. Pt life flighted from [facility] to [facility] ER admitted to 3002: Diabetic ketoacidosis [...] from the original note were not included. [facility] Office: [phone] Andrew Hernandez DO, Ernie Escalante DO, Hal [...] Ludmila Best DO, Bradly Nassar MD, Sarita Mcmullen,WAREHOUSE PRICING AND INVENTORY CLERK, Linda Lynch, WAREHOUSE PRICING AND INVENTORY CLERK, Ludmila Aguilera, WAREHOUSE PRICING AND INVENTORY CLERK, Lina Morgan DNP, Nini Raya, WAREHOUSE PRICING AND INVENTORY CLERK, Giuliana Mae, WAREHOUSE PRICING AND INVENTORY CLERK, Myra Almodovar CNP, Suzy Dooley WAREHOUSE PRICING AND INVENTORY CLERK, GLADIS RankinC, Carley So, PASulaimanC, Shelyl Rainey,PARKER, Manny Laura, PARKER, Yenny Motta, PARKER, Claudine Parrish, WAREHOUSE PRICING AND INVENTORY CLERK, Maame Carter CNP, Edilma Garza, WAREHOUSE PRICING AND INVENTORY CLERK [facility] IN-PATIENT SERVICE [facility] Progress Note 10/03/2024 8:10 AM Name: Ortiz Gorman Acct: [id number] Room: [facility] Day: 5 Admit Date: 09/28/2024 2:35 PM [...] 09:42 AM POCPCO2 33.7 10/01/2024 04:26 AM [id number] 35.2 09/28/2024 09:42 AM POCPO2 143.0 10/01/2024 04:26 AM PO2ART 72.2 09/28/2024 09:42 AM POCHCO3 25.1 10/01/2024 04:26 AM CHK0SVP 20.6 09/28/2024 09:42 AM NBEA 3.7 09/28/2024 09:42 AM PBEA 1.5 10/01/2024 04:26 AM FONC6JHI 99.4 10/01/2024 04:26 AM Q0VSCAWN 94.5 09/28/2024 09:42 AM FIO2 30.0 10/01/2024 [...] (Principal) DKA, type 2, not at goal ([facility]) 09/28/2024 Yes NSTEMI (non-ST elevated myocardial infarction) ([facility]) 09/29/2024 Yes Acute metabolic encephalopathy [...] 8:10 AM * Marce Restrepo APRN - WAREHOUSE PRICING AND INVENTORY CLERK - 10/03/2024 7:47 AM EST NEUROLOGY INPATIENT [...] slurring his words. He was taken to [facility] where he was found to have significantly elevated SBP greater than 250s, glucose was 820. He was also found to have ABHIJIT, elevated troponins, lactic acidosis, and ABG consistent with hypoxemia. Danielleoes have a history of medication noncompliance. He was intubated for airway protection, sedated, and transferred to [facility] to the ICU. MRI brain [...] fluro performed by Vincent Kuhn DO at [facility] [place] Social History: Ortiz Gorman reports that [...] to ensure the accuracy of this automated guidance services coordinator, some errors in guidance services coordinator may have occurred. Associated attestation - Mary [...] and pt stated he was at the [facility] [place] RN attempted to reorient the pt and pt continued to reiterate that he was at [facility] [place]. RN's repositioned pt in bed and [...] to provide support, encouragement and education. JOSELINE TEAUGE RN Previous documentation copied below for reference. [...] Pt life flighted from [facility] ER admitted to 3002: Diabetic ketoacidosis [...] a more appropriate time. * Aleja Wagoner, SHOT BLAST EQUIPMENT OPERATOR - TECHNICAL SUPPORT AGENT - 10/02/2024 3:02 PM EST Images from the original note were not included. [employer] Progress Note Date: 10/02/2024 Patient name: Ortiz [...] ms QTc Calculation (Bazett) 456 ms P [place] 79 degrees R [place] 68 degrees T [place] 68 degrees Narrative Sinus tachycardia Possible Left atrial enlargement Nonspecific ST abnormality Abnormal ECG No previous ECGs available Echo: Results for orders placed or performed during the hospital encounter of 10/27/21 Echocardiogram complete 2D with doppler with color Result Value Ref Range Left Ventricular Ejection Fraction 60 LVEF MODALITY ECHO Narrative [facility] Transthoracic Echocardiography Report (TTE) Patient Name SHERIF Date of Study 10/30/2021 ORTIZ Quezada Date of 1975 Gender Male Age 45 year(s) Race Room Number I307 Height: 71 inch, 180.34 cm Corporate ID [id number] Weight: 174 pounds, 78.9 kg # Patient Acct [id number] BSA: 1.99 m^2 BMI: 24.27 # kg/m^2 MR # [id number] Paperhanger BrittRaysa Interpreting Physician Sammie Sher Fellow Referring Nurse Sarita Arzola CNP Practitioner Interpreting Referring Physician Fellow Type of Study TTE procedure:2D Echocardiogram, M-Mode, Doppler, Color Doppler. Procedure Date Date: 10/30/2021 Start: 02:34 PM Study Location: [facility] Indications:Tachycardia. History / Tech. Comments: Dx: tachycardia, [...] (Principal) DKA, type 2, not at goal ([facility]) 09/28/2024 Yes NSTEMI (non-ST elevated myocardial infarction) ([facility]) 09/29/2024 Yes Acute metabolic encephalopathy 09/30/2024 Yes Acute hypoxemic respiratory failure 09/28/2024 Yes Abnormal finding on MRI of brain 10/01/2024 Yes Assessment: Elevated Troponins- likely type II ND HTN emergency- off cardene drip AMS-extubated on 10/01 ABHIJIT Sepsis 2/2 pneumonia DKA Normal TTE 01/2024 Plan: Hemodynamically stable - continue asa , statin Norvasc and coreg ECHO as above Volume management per nephrology Will plan for stress test in am if low risk then can be discharged from cardiac standpoint [employer] [employer] [phone] * Felix Hernandez DO - 10/02/2024 1:04 PM EST Images from the original note were not included. [facility] Office: [phone] Andrew Hernandez DO, Ernie Escalante DO, Hal [...] Ludmila Best DO, Bradly Nassar MD, Sarita Mcmullen,WAREHOUSE PRICING AND INVENTORY CLERK, Linda Lynch, WAREHOUSE PRICING AND INVENTORY CLERK, Ludmila Aguilera, WAREHOUSE PRICING AND INVENTORY CLERK, Lina Morgan, JENNA, Nini Raya, WAREHOUSE PRICING AND INVENTORY CLERK, Giuliana Mae, WAREHOUSE PRICING AND INVENTORY CLERK, Myra Almodovar, WAREHOUSE PRICING AND INVENTORY CLERK, Suzy Dooley, WAREHOUSE PRICING AND INVENTORY CLERK, Gaviota Rich PA-C, Carley So PA-C, Shelly Rainey,WAREHOUSE PRICING AND INVENTORY CLERK, Manny Laura, WAREHOUSE PRICING AND INVENTORY CLERK, Yenny Motta, WAREHOUSE PRICING AND INVENTORY CLERK, Claudine Parrish, WAREHOUSE PRICING AND INVENTORY CLERK, Maame Carter, WAREHOUSE PRICING AND INVENTORY CLERK, Edilma Garza, WAREHOUSE PRICING AND INVENTORY CLERK [facility] IN-PATIENT SERVICE [facility] Progress Note 10/02/2024 1:05 PM Name: Ortiz Gorman Acct: [id number] Room: 0165/0165-01 Day: 4 Admit Date: 09/28/2024 [...] 09:42 AM POCPCO2 33.7 10/01/2024 04:26 AM YSB4THM 35.2 09/28/2024 09:42 AM POCPO2 143.0 10/01/2024 04:26 AM PO2ART 72.2 09/28/2024 09:42 AM POCHCO3 25.1 10/01/2024 04:26 AM GZM5EHX 20.6 09/28/2024 09:42 AM NBEA 3.7 09/28/2024 09:42 AM PBEA 1.5 10/01/2024 04:26 AM HVGW9ZTO 99.4 10/01/2024 04:26 AM S0TJBFOY 94.5 09/28/2024 09:42 AM FIO2 30.0 10/01/2024 [...] (Principal) DKA, type 2, not at goal ([facility]) 09/28/2024 Yes NSTEMI (non-ST elevated myocardial infarction) ([facility]) 09/29/2024 Yes Acute metabolic encephalopathy 09/30/2024 Yes Acute hypoxemic respiratory failure 09/28/2024 Yes Abnormal finding on MRI of brain 10/01/2024 Yes Plan: Diabetic ketoacidosis/diabetes mellitus DKA resolved Continue Lantus and sliding scale Outpatient follow-up with para educator Essential hypertension Medications adjusted Monitor and [...] Patient's name: Ortiz Gorman Patient's account/billing number: [id number] Patient's Date of : 1975 Age: 48 [...] Date Noted NSTEMI (non-ST elevated myocardial infarction) ([facility]) 09/29/2024 Abnormal finding on MRI of brain 10/01/2024 DKA, type 2, not at goal ([facility]) 09/28/2024 Acute hypoxemic respiratory failure 09/28/2024 Central apnea 01/22/2024 Acute metabolic encephalopathy 01/19/2024 Hypertensive emergency 01/19/2024 Fever 01/19/2024 Altered mental status 01/19/2024 Encephalopathy acute 01/19/2024 Hypertensive urgency 01/19/2024 Lactic acidosis 01/19/2024 Bacteremia due to Staphylococcus aureus Sinus tachycardia Mild malnutrition ([facility]) 10/28/2021 Diabetic acidosis without coma ([facility]) 10/27/2021 Additional assessment: Neuro: cont asa, lipitor CV: Amlodipine 5mg daily, Coreg 25mg daily, Losartan 25mg daily GI: DM diet ID: Zosyn for pneumonia Endo: Lantus 25u AM, MDSSI DVT ppx: Hep 5k TID Recommended Follow-up: Cardiology for stress test Nephrology for ABHIJIT, though resolving Neuro: consider 30d phototypesetting equipment monitor at [facility] 4wks Above mentioned assessment and plan was discussed by me with the admitting medicine resident. The medicine team assigned to the patient by medicine admitting resident will be following up the patientfrom now onwards on the floor. Ludmila Rajput MD, M.D. Critical care resident Department of Internal Medicine/ Critical care [facility]) 10/02/2024, 10:32 AM * Chung Noel [...] FACP 10/02/2024 9:04 AM [facility] * Marce Restrepo, SHOT BLAST EQUIPMENT OPERATOR - WAREHOUSE PRICING AND INVENTORY CLERK - 10/02/2024 9:00 AM EST NEUROLOGY INPATIENT PROGRESS NOTE 10/02/2024 Current Exam: Chart reviewed. Discussed with RN. Patient was extubated yesterday. He is oriented but gives off topic responses at times to questions. He denies any headache or focal weakness. No seizure activity. 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 Brief History: Ortiz Gorman is a 48 y.o. male with H/O DM, who was admitted on 09/28/2024 after being found downat home, reportedly covered in feces, confused, and slurring his words. He was taken to [facility] where he was found to have significantly elevated SBP greater than 250s, glucose was 820. He was also found to have ABHIJIT, elevated troponins, lactic acidosis, and ABG consistent with hypoxemia. Hedoes have a history of medication noncompliance. He was intubated for airway protection, sedated, and transferred to [facility] to the ICU. MRI brain [...] fluro performed by Vincent Kuhn DO at [facility] [place] Social History: Ortiz Gorman reports that [...] to ensure the accuracy of this automated guidance services coordinator, some errors in guidance services coordinator may have occurred. Associated attestation - Mary [...] Continue asa and statin. Recommend 30 day phototypesetting equipment monitor at [facility]. Can consider LOOP recorder as outpatient if [...] for ABHIJIT. Voiding spontaneously. Plan to transferto MS today OBJECTIVE: VITAL SIGNS: BP (!) 140/75 [...] Date 10/02/24 0000 - 10/02/24 2359 Shift 2324-1245 9223-8514 4752-9342 24 Hour Total INTAKE P.O.(mL/kg/hr) 500 500 [...] Value Date/Time PHART 7.385 09/28/2024 09:42 AM JEB8QDA 35.2 09/28/2024 09:42 AM PO2ART 72.2 09/28/2024 09:42 AM ZIA5DFO 20.6 09/28/2024 09:42 AM O0GWCVRJ 94.5 09/28/2024 09:42 AM FIO2 30.0 10/01/2024 [...] Procedure Component Value Units Date/Time Culture, Respiratory [[id number]] (Abnormal) Collected: 09/28/242053 Order Status: Completed Specimen: Respiratory specimen from Tracheal Aspirate Updated: 09/30/24 0903 Specimen Description .TRACHEAL ASPIRATE Special Requests Site: Respiratory specimen Direct Exam < 10 EPITHELIAL CELLS/LPF >10, <25 NEUTROPHILS/LPF FEW GRAM POSITIVE COCCI IN PAIRS Culture NORMAL RESPIRATORY AYDEN LIGHT GROWTH MRSA DNA Probe, Nasal [[id number]] Collected: 09/28/241637 Order Status: Completed Specimen: Nares [...] treatment for MRSA infections. LEGIONELLA ANTIGEN, URINE [[id number]] Collected: 09/28/241624 Order Status: Completed Specimen: Urine Updated: 09/28/241756 Legionella Pneumophilia Ag, Urine NEGATIVE Comment: L. pneumophila serogroup 1 antigen not detected. A negative result does not exclude infection with Leginella pnemophila serogroup 1 nor does it rule out other microbial-caused respiratory infections of disease caused by other serogroups of Legionella pneumophila. Strep Pneumoniae Antigen [[id number]] Collected: 09/28/241623 Order Status: Completed Specimen: Urine, clean catch Updated: 09/28/24 175 Source .URINE Strep pneumo Ag NEGATIVE Comment: Strep pneumoniae antigen not detected Respiratory Panel, Molecular, with COVID-19 (Restricted: peds pts or suitable admitted adults) [[id number]] Collected: 09/28/24 162 Order Status: Completed Specimen: [...] multiplexed nucleic acid assay. Culture, Blood 1 [[id number]] (Abnormal) (Susceptibility) Collected: 09/28/24838 Order Status: Completed [...] to and read back by:YECENIA JOHNSON RN, [facility], 09/29/24 0745, RB DJR Susceptibility Enterococcus avium BACTERIAL SUSCEPTIBILITY PANEL MARINE ampicillin <=2 Sensitive Gentamicin, High Level Sensitive Streptomycin, Hi Level Sensitive vancomycin <=0.5 Sensitive Culture, Blood 2 [[id number]] Collected: 09/28/24833 Order Status: Completed Specimen: Blood [...] Date Noted NSTEMI (non-ST elevated myocardial infarction) ([facility]) 09/29/2024 Abnormal finding on MRI of brain 10/01/2024 DKA, type 2, not at goal ([facility]) 09/28/2024 Acute hypoxemic respiratory failure 09/28/2024 Central apnea 01/22/2024 Acute metabolic encephalopathy 01/19/2024 Hypertensive emergency 01/19/2024 Fever 01/19/2024 Altered mental status 01/19/2024 Encephalopathy acute 01/19/2024 Hypertensive urgency 01/19/2024 Lactic acidosis 01/19/2024 Bacteremia due to Staphylococcus aureus Sinus tachycardia Mild malnutrition ([facility]) 10/28/2021 Diabetic acidosis without coma ([facility]) 10/27/2021 PLAN: WEAN PER PROTOCOL: [] No [] Yes [x] N/A ICU PROPHYLAXIS: Stress ulcer: [x] PPI Agent [] [id number] [] Sucralfate [] Other: VTE: [] Enoxaparin [...] Mycoplasma, Legionella. MRSA negative CV: BP at [facility] was 225/110 and started on cardene drip [...] 5000 TID GI: None Dispo: [facility] Ludmila Rajput MD Emergency Medicine Resident, PGY 3 Critical Care Service 10/02/2024 6:52 AM Associated attestation - Rip Mcmullen MD - 10/02/2024 7:25 PM EST Attending Physician Statement I have discussed the case of Ortiz Gorman, including pertinent history and exam findings with theresident/fellow/medical student/TECHNICAL SUPPORT AGENT/PA. I have seen and examined the patient and the swartz elements ofthe encounter have been performed by me. I agree with the assessment, plan and orders as documentedby the resident/fellow/medical student/TECHNICAL SUPPORT AGENT/PA With changes made to the note as [...] pump inhibitor Patient can be transferred to [facility] bed We will sign off when the patient leaves the ICU Total critical care time caring for this patient with life threatening, unstable organ failure, including direct patient contact, management of life support systems, review of data including imaging and labs, discussions with other team members and physicians at least 30 Min so far today, excludingprocedures. Rip Mcmullen MD 10/02/2024 7:24 PM * vAa Brush RCP - 10/01/2024 10:52 AM EST [...] FACP 10/01/2024 10:15 AM [facility] * Marce Restrepo, SHOT BLAST EQUIPMENT OPERATOR - WAREHOUSE PRICING AND INVENTORY CLERK - 10/01/2024 9:41 AM EST NEUROLOGY INPATIENT [...] slurring his words. He was taken to [facility] where he was found to have significantly elevated SBP greater than 250s, glucose was 820. He was also found to have ABHIJIT, elevated troponins, lactic acidosis, and ABG consistent with hypoxemia. Hedoes have a history of medication noncompliance. He was intubated for airway protection, sedated, and transferred to [facility] to the ICU. MRI brain [...] fluro performed by Vincent Kuhn DO at [facility] [place] Social History: Ortiz Gorman reports that [...] to ensure the accuracy of this automated guidance services coordinator, some errors in guidance services coordinator may have occurred. Associated attestation - Mary [...] with no acute findings. Consider 30 day phototypesetting equipment monitor at [facility]. Will recommend repeat MRI brain in 4 [...] per DKA orderset. Pt life flighted from [facility] to [facility] ER admitted to 3002: Diabetic ketoacidosis [...] Progress Note PATIENT: ORTIZ GORMAN CSN #: [id number] : 1975 ADMIT DATE: 09/28/2024 2:35 PM DISCH DATE: RESPONDING PROVIDER #: SUSSY MTZ QUERY TEXT: Pt admitted with DKA, possible pneumonia. Noted documentation of Sepsis 2/2 pneumonia on 09/29-09/30 by ordered nuclear cardiology technologist. If possible, please document in progress notes [...] the original note were not included. [employer] [employer] Progress Note Date: 10/01/2024 Patient name: Ortiz [...] ms QTc Calculation (Bazett) 456 ms P [place] 79 degrees R [place] 68 degrees T [place] 68 degrees Narrative Sinus tachycardia Possible Left atrial enlargement Nonspecific ST abnormality Abnormal ECG No previous ECGs available Echo: Results for orders placed or performed during the hospital encounter of 10/27/21 Echocardiogram complete 2D with doppler with color Result Value Ref Range Left Ventricular Ejection Fraction 60 [address]VEF [address] ECHO N[address] [facility] Transthoracic Echocardiography Report (TTE) Patient Name SHERIF Date of Study 10/30/2021 ORTIZ Quezada Date of 1975 Gender Male Age 45 year(s) Race Room Number I307 Height: 71 inch, 180.34 cm Corporate ID [id number] Weight: 174 pounds, 78.9 kg # Patient Acct [id number] BSA: 1.99 m^2 BMI: 24.27 # kg/m^2 MR # [id number] [employer]anger [employer],Raysa Interpreting Physician Sammie Sher Fellow Referring Nurse Sarita Arzola CNP Practitioner Interpreting Referring Physician Fellow Type of Study TTE procedure:2D Echocardiogram, M-Mode, Doppler, Color Doppler. Procedure Date Date: 10/30/2021 Start: 02:34 PM Study Location: [facility] Indications:Tachycardia. History / Tech. Comments: Dx: tachycardia, [...] (Principal) DKA, type 2, not at goal ([facility]) 09/28/2024 Yes NSTEMI (non-ST elevated myocardial infarction) ([facility]) 09/29/2024 Yes Acute metabolic encephalopathy 09/30/2024 Yes Acute hypoxemic respiratory failure 09/28/2024 Yes Assessment: Elevated Troponins- likely type II ND HTN emergency- off cardene drip AMS-extubated on [...] With changes made to the note. . [place] [employer] [phone] * Sirena Sanchez MD - 10/01/2024 7:16 [...] Date 10/01/24 0000 - 10/01/24 2359 Shift 5287-8525 8541-4902 7684-9936 24 Hour Total INTAKE I.V.(mL/kg) 1283.3(15.5) 294(3.5) [...] Value Date/Time PHART 7.385 09/28/2024 09:42 AM FBB4SJM 35.2 09/28/2024 09:42 AM PO2ART 72.2 09/28/2024 09:42 AM OSQ7FJZ 20.6 09/28/2024 09:42 AM I3TGLXXP 94.5 09/28/2024 09:42 AM FIO2 30.0 10/01/2024 [...] Procedure Component Value Units Date/Time Culture, Respiratory [[id number]] (Abnormal) Collected: 09/28/242053 Order Status: Completed Specimen: Respiratory specimen from Tracheal Aspirate Updated: 09/30/24902 Specimen Description .TRACHEAL ASPIRATE Special Requests Site: Respiratory specimen Direct Exam < 10 EPITHELIAL CELLS/LPF >10, <25 NEUTROPHILS/LPF FEW GRAM POSITIVE COCCI IN PAIRS Culture NORMAL RESPIRATORY AYDEN LIGHT GROWTH MRSA DNA Probe, Nasal [[id number]] Collected: 09/28/24 1638 Order Status: Completed Specimen: [...] treatment for MRSA infections. LEGIONELLA ANTIGEN, URINE [[id number]] Collected: 09/28/24 162 Order Status: Completed Specimen: Urine Updated: 09/28/24 175 Legionella Pneumophilia Ag, Urine NEGATIVE Comment: L. pneumophila serogroup 1 antigen not detected. A negative result does not exclude infection with Leginella pnemophila serogroup 1 nor does it rule out other microbial-caused respiratory infections of disease caused by other serogroups of Legionella pneumophila. Strep Pneumoniae Antigen [[id number]] Collected: 09/28/24 162 Order Status: Completed Specimen: Urine, clean catch Updated: 09/28/24 175 Source .URINE Strep pneumo Ag NEGATIVE Comment: Strep pneumoniae antigen not detected Respiratory Panel, Molecular, with COVID-19 (Restricted: peds pts or suitable admitted adults) [[id number]] Collected: 09/28/24 1620 Order Status: Completed Specimen: [...] multiplexed nucleic acid assay. Culture, Blood 1 [[id number]] (Abnormal) (Susceptibility) Collected: 09/28/24838 Order Status: Completed [...] to and read back by:YECENIA JOHNSON RN, [facility], 09/29/24 0745, RB DJR Susceptibility Enterococcus avium BACTERIAL SUSCEPTIBILITY PANEL MARINE ampicillin <=2 Sensitive Gentamicin, High Level Sensitive Streptomycin, Hi Level Sensitive vancomycin <=0.5 Sensitive Culture, Blood 2 [[id number]] Collected: 09/28/24833 Order Status: Completed Specimen: Blood [...] Date Noted NSTEMI (non-ST elevated myocardial infarction) ([facility]) 09/29/2024 DKA, type 2, not at goal ([facility]) 09/28/2024 Acute hypoxemic respiratory failure 09/28/2024 Central apnea 01/22/2024 Acute metabolic encephalopathy 01/19/2024 Hypertensive emergency 01/19/2024 Fever 01/19/2024 Altered mental status 01/19/2024 Encephalopathy acute 01/19/2024 Hypertensive urgency 01/19/2024 Lactic acidosis 01/19/2024 Bacteremia due to Staphylococcus aureus Sinus tachycardia Mild malnutrition ([facility]) 10/28/2021 Diabetic acidosis without coma ([facility]) 10/27/2021 PLAN: WEAN PER PROTOCOL: [] No [x] Yes [] N/A ICU PROPHYLAXIS: Stress ulcer: [x] PPI Agent [] M6Sfohm [] Sucralfate [] Other: VTE: [] Enoxaparin [...] Mycoplasma, Legionella. MRSA negative CV: BP at [facility] was 225/110 and started on cardene drip [...] pertinent history and exam findings with theresident/fellow/medical student/TECHNICAL SUPPORT AGENT/PA. I have seen and examined the patient and the swartz elements ofthe encounter have been performed by me. I agree with the assessment, plan and orders as documentedby the resident/fellow/medical student/TECHNICAL SUPPORT AGENT/PA With changes made to the note as [...] Brown DO - 09/30/2024 1:13 PM EST [facility] Neurology IN-PATIENT SERVICE NEUROLOGY PROGRESS NOTE [...] night. He was taken tot ED at [facility]. Found to have significant elevation in [...] He was transferred to medical ICU at [facility]. Currently he is seen here at [place] ICU. Propofol drip is currently running. He [...] fluro performed by Vincent Kuhn DO at [facility] [place] Medications during admission: insulin glargine 25 [...] collection present. The proximal portions of the [place] demonstrate normal flow voids. ORBITS: [...] will continue to follow. Addy Brown DO [facility] Neurology * Sussy Mtz MD - [...] Date 09/30/24 0000 - 09/30/24 2359 Shift 6265-1608 4106-8452 1258-3562 24 Hour Total INTAKE I.V.(mL/kg) 233.8(2.8) 233.8(2.8) [...] Value Date/Time PHART 7.385 09/28/2024 09:42 AM KRZ9NSD 35.2 09/28/2024 09:42 AM PO2ART 72.2 09/28/2024 09:42 AM EQQ1UTX 20.6 09/28/2024 09:42 AM [id number] 94.5 09/28/2024 09:42 AM FIO2 30.0 09/30/2024 [...] Procedure Component Value Units Date/Time Culture, Respiratory [[id number]] (Abnormal) Collected: 09/28/242053 Order Status: Completed Specimen: Respiratory specimen from Tracheal Aspirate Updated: 09/29/24 1211 Specimen Description .TRACHEAL ASPIRATE Special Requests Site: Respiratory specimen Direct Exam < 10 EPITHELIAL CELLS/LPF >10, <25 NEUTROPHILS/LPF FEW GRAM POSITIVE COCCI IN PAIRS Culture CULTURE IN PROGRESS MRSA DNA Probe, Nasal [[id number]] Collected: 09/28/24 1638 Order Status: Completed Specimen: [...] treatment for MRSA infections. LEGIONELLA ANTIGEN, URINE [[id number]] Collected: 09/28/241624 Order Status: Completed Specimen: Urine Updated: 09/28/24 175 Legionella Pneumophilia Ag, Urine NEGATIVE Comment: L. pneumophila serogroup 1 antigen not detected. A negative result does not exclude infection with Leginella pnemophila serogroup 1 nor does it rule out other microbial-caused respiratory infections of disease caused by other serogroups of Legionella pneumophila. Strep Pneumoniae Antigen [[id number]] Collected: 09/28/241623 Order Status: Completed Specimen: Urine, clean catch Updated: 09/28/24 175 Source .URINE Strep pneumo Ag NEGATIVE Comment: Strep pneumoniae antigen not detected Respiratory Panel, Molecular, with COVID-19 (Restricted: peds pts or suitable admitted adults) [[id number]] Collected: 09/28/241619 Order Status: Completed Specimen: Respiratory [...] multiplexed nucleic acid assay. Culture, Blood 1 [[id number]] (Abnormal) Collected: 09/28/24 0839 Order Status: Completed [...] to and read back by:YECENIA JOHNSON RN, [facility], 09/29/24 0745, RB DJR Culture, Blood 2 [[id number]] Collected: 09/28/24 0834 Order Status: Completed Specimen: [...] Date Noted NSTEMI (non-ST elevated myocardial infarction) ([facility]) 09/29/2024 DKA, type 2, not at goal ([facility]) 09/28/2024 Acute hypoxemic respiratory failure 09/28/2024 Central apnea 01/22/2024 Hypertensive encephalopathy 01/19/2024 Hypertensive emergency 01/19/2024 Fever 01/19/2024 Altered mental status 01/19/2024 Encephalopathy acute 01/19/2024 Hypertensive urgency 01/19/2024 Lactic acidosis 01/19/2024 Bacteremia due to Staphylococcus aureus Sinus tachycardia Mild malnutrition ([facility]) 10/28/2021 Diabetic acidosis without coma ([facility]) 10/27/2021 PLAN: WEAN PER PROTOCOL: [] No [x] Yes [] N/A ICU PROPHYLAXIS: Stress ulcer: [x] PPI Agent [] V1Lsswt [] Sucralfate [] Other: VTE: [] Enoxaparin [...] i Vent Mode: AC/PRVC CV: BP at [facility] was 225/110 and started on cardene drip [...] the original note were not included. [place] [employer] Progress Note Date: 09/30/2024 Patient name: Ortiz [...] Continuous Infusions: dextrose sodium chloride Stopped (09/28/24 5304) propofol 30 mcg/kg/min (09/30/24 5913) sodium chloride Stopped (09/28/242123) dextrose 5 % [...] ms QTc Calculation (Bazett) 456 ms P [place] 79 degrees R [place] 68 degrees T [place] 68 degrees Narrative Sinus tachycardia Possible Left atrial enlargement Nonspecific ST abnormality Abnormal ECG No previous ECGs available Echo: Results for orders placed or performed during the hospital encounter of 10/27/21 Echocardiogram complete 2D with doppler with color Result Value Ref Range Left Ventricular Ejection Fraction [address] [facility] Transthoracic Echocardiography Report (TTE) Patient Name SHERIF Date of Study 10/30/2021 ORTIZ Quezada Date of 1975 Gender Male Age 45 year(s) Race Room Number I307 Height: 71 inch, 180.34 cm Corporate ID [id number] Weight: 174 pounds, 78.9 kg # Patient Acct [id number] BSA: 1.99 m^2 BMI: 24.27 # kg/m^2 MR # [id number] Paperhanger BrittRaysa Interpreting Physician Sammie Sher Fellow Referring Nurse Sarita Arzola, PARKER Practitioner Interpreting Referring Physician Fellow Type of Study TTE procedure:2D Echocardiogram, M-Mode, Doppler, Color Doppler. Procedure Date Date: 10/30/2021 Start: 02:34 PM Study Location: [facility] Indications:Tachycardia. History / Tech. Comments: Dx: tachycardia, [...] (Principal) DKA, type 2, not at goal ([facility]) 09/28/2024 Yes NSTEMI (non-ST elevated myocardial infarction) ([facility]) 09/29/2024 Yes Acute hypoxemic respiratory failure 09/28/2024 Yes Assessment: Elevated Troponins- likely type II ND HTN emergency- off cardene drip now AMS-intubated [...] With changes made to the note. . [place] [employer] [phone] * Addy Brown DO - 09/29/2024 2:08 PM EST [facility] Neurology IN-PATIENT SERVICE NEUROLOGY PROGRESS NOTE [...] night. He was taken tot ED at [facility]. Found to have significant elevation in [...] He was transferred to medical ICU at [facility]. Currently he is seen here at [place] ICU. Propofol drip is currently running. He [...] fluro performed by Vincent Kuhn DO at [facility] [place] Medications during admission: insulin glargine 20 [...] primary team Will follow Addy Brown DO [facility] Neurology * Sunshine Carmona RD - [...] to assess Fluid Accumulation: Mild Extremities, Generalized Mold Car Pusher Strength: Not Performed Nutrition Assessment: Pt currently ventilated. Life flighted from [facility] for DKA. Adm BG 820 mg/dL. Found [...] Measures: Height: 177.8 cm (5' 10 ) [place] Body Weight (IBW): 166 lbs (75 kg) Admission Body Weight: 81.2 kg (179 lb) Current Body Weight: 81.2 kg (179 lb), 107.8 % IBW. Weight Source: Bed scale Current BMI (kg/m2): 25.7 Weight Adjustment For: No Adjustment BMI Categories: Overweight (BMI 25.0-29.9) Estimated Daily Nutrient Needs: Energy Requirements Based On: Formula Weight Used for Energy Requirements: Current Energy (kcal/day): 7003-0182 kcal/d Weight Used for Protein Requirements: Current [...] of home dose lantus Received call from [facility] lab stating one of the blood [...] Date 09/29/24 0000 - 09/29/24 2359 Shift 1312-7486 0626-4782 6005-2721 24 Hour Total INTAKE I.V.(mL/kg) 2670.3(32.8) 2670.3(32.8) [...] % ETCO2 (mmHg): 34 mmHg Humidification Source: [facility] ABGs: Arterial Blood Gas result: pH 7.41; pCO2 38; pO2 161; HCO3 25; Lab Results Component Value Date/Time PHART 7.385 09/28/2024 09:42 AM VVT6IGI 35.2 09/28/2024 09:42 AM PO2ART 72.2 09/28/2024 09:42 AM ISV5KIF 20.6 09/28/2024 09:42 AM B0LPCLOC 94.5 09/28/2024 09:42 AM FIO2 30.0 09/29/2024 [...] Procedure Component Value Units Date/Time Culture, Respiratory [[id number]] (Abnormal) Collected: 09/28/242053 Order Status: Completed Specimen: Respiratory specimen from Tracheal Aspirate Updated: 09/28/242229 Specimen Description .TRACHEAL ASPIRATE Special Requests Site: Respiratory specimen Direct Exam < 10 EPITHELIAL CELLS/LPF >10, <25 NEUTROPHILS/LPF FEW GRAM POSITIVE COCCI IN PAIRS Culture PENDING MRSA DNA Probe, Nasal [[id number]] Collected: 09/28/241637 Order Status: Sent Specimen: Nares Updated: 09/28/24 163 LEGIONELLA ANTIGEN, URINE [[id number]] Collected: 09/28/241624 Order Status: Completed Specimen: Urine Updated: 09/28/241756 Legionella Pneumophilia Ag, Urine NEGATIVE Comment: L. pneumophila serogroup 1 antigen not detected. A negative result does not exclude infection with Leginella pnemophila serogroup 1 nor does it rule out other microbial-caused respiratory infections of disease caused by other serogroups of Legionella pneumophila. Strep Pneumoniae Antigen [[id number]] Collected: 09/28/241623 Order Status: Completed Specimen: Urine, clean catch Updated: 09/28/24 175 Source .URINE Strep pneumo Ag NEGATIVE Comment: Strep pneumoniae antigen not detected Respiratory Panel, Molecular, with COVID-19 (Restricted: peds pts or suitable admitted adults) [[id number]] Collected: 09/28/24 162 Order Status: Completed Specimen: [...] multiplexed nucleic acid assay. Culture, Blood 1 [[id number]] Collected: 09/28/24838 Order Status: Sent Specimen: Blood Updated: 09/28/24854 Culture, Blood 2 [[id number]] Collected: 09/28/24833 Order Status: Sent Specimen: Blood [...] PROPHYLAXIS: Stress ulcer: [x] PPI Agent [] [id number] [] Sucralfate [] Other: VTE: [] Enoxaparin [...] i Vent Mode: AC/PRVC CV: BP at [facility] was 225/110 and started on cardene drip [...] DEBRA CRAMER RCP 5:06 PM * Regi Mithcell RD, LD - 09/28/2024 3:07 PM EST Diabetes Education Note Referral for diabetes education received per DKA orderset. Pt life flighted [facility] ER admitted to 3002: Diabetic ketoacidosis [...] RD, ESE, CDCES documented in this encounterBon [facility] Hospital course Narrative* Rhoda Luna MD - 10/06/2024 8:27 AM EST Images from the original note were not included. [facility] Office: [phone] Andrew Hernandez DO, Ernie Escalante DO, Hal [...] Mcmullen CNP, Linda Lynch CNP, Ludmila Aguilera, WAREHOUSE PRICING AND INVENTORY CLERK, Lina Morgan DNP, Nini Raya, WAREHOUSE PRICING AND INVENTORY CLERK, Giuliana Mae, WAREHOUSE PRICING AND INVENTORY CLERK, Myra Almodovar, WAREHOUSE PRICING AND INVENTORY CLERK, Suzy Dooley, WAREHOUSE PRICING AND INVENTORY CLERK, Gaviota Rich PA-C, Carley So PA-C, Shelly Rainey,WAREHOUSE PRICING AND INVENTORY CLERK, Manny Laura, WAREHOUSE PRICING AND INVENTORY CLERK, Yenny Motta, WAREHOUSE PRICING AND INVENTORY CLERK, Claudine Parrish, WAREHOUSE PRICING AND INVENTORY CLERK, Maame Carter CNP, Edilma Garza CNP [facility] IN-PATIENT SERVICE [facility] Discharge Summary Patient ID: Ortiz Gorman : 1975 ACCOUNT: [id number] Patient's PCP: Vincent Winters MD Admit Date: 09/28/2024 Discharge Date: 10/06/2024 Length of Stay: 8 Code Status: Full Code Admitting Physician: No admitting provider for patient encounter. Discharge Physician: Rhoda Luna MD Active Discharge Diagnoses: Hospital Problem Lists: Principal Problem: DKA, type 2, not at goal ([facility]) Active Problems: NSTEMI (non-ST elevated myocardial infarction) (H[facility]) Acute metabolic encephalopathy Acute hypoxemic respiratory failure Abnormal finding on MRI of brain Abnormal electrocardiography ABHIJIT (acute kidney injury) ([facility]) Stage 3 chronic kidney disease ([facility]) Hypertension Seizures (HCC) Cerebrovascular accident (CVA) ([facility]) Resolved Problems: * No resolved [...] Consults: Final Specialist Recommendations/Findings: IP CONSULT TO CHURN OPERATOR IP CONSULT TO NEUROLOGY IP CONSULT TO CARDIOLOGY IP CONSULT TO NEPHROLOGY IP CONSULT TO HOME CARE NEEDS The patient was seen and examined on day of discharge A&O X 3 CTAB NSR, NO MRG Soft abdomen , +BS No swelling and pulse palpable Discharge plan: Disposition: Home with home care Physician Follow Up: Jayden Orosco MD [address], [address] [facility] [address] Schedule an appointment as soon as possible for a visit in 6 week(s) Ramy Sanchez MD [address] [facility] [facility] [facility] [address] Follow up in 1 month(s) Vincent Winters MD [address] [facility] [address] Follow up Requiring Further Evaluation/Follow Up [...] Your Medications These medications were sent to [facility] [place], [place] - [address] [facility] - P [phone] - F [phone] [address] [place] [address] amLODIPine 10 MG tablet aspirin 81 MG [...] were sent to [facility] [address] [place], [place] - [address] [facility] - [phone] - F [phone] [address] [facility] [phone] Blood Pressure Kit Discharge Procedure Orders MRI Brain W WO Contrast Standing Status: Future Standing Exp. Date: 10/02/25 Order Specific Question Answer Comments STAT Creatinine as needed: Yes Reason for exam: follow up to right cerebral hyperintensities Basic Metabolic Panel Standing Status: Future Standing Exp. Date: 10/06/25 Order Comments: Please fax to Dr. Sanchez at [phone] Time Spent on discharge is 40 mins in patient examination, evaluation, counseling as well as medication reconciliation, prescriptions for required medications, discharge plan and follow up. Electronically signed by Rhoda Luna MD 10/06/2024 12:44 PM Thank you Vincent Roman MD for the opportunity to be involved in this patient's care. documented in this encounterBon [facility] Hospital Discharge instructions* Discharge Instructions* Joseline [...] patient's room Diabetes Education phone number is [phone]. You worked with Joseline Teague RN * [...] fluro performed by Vincent Kuhn DO at [facility] [place] Immunization History: Immunization History Administered Date(s) [...] R06.81 DKA, type 2, not at goal ([facility]) E11.10 Acute hypoxemic respiratory failure J96.01 NSTEMI (non-ST elevated myocardial infarction) ([facility]) I21.4 Abnormal finding on MRI [...] Independent Dressing Independent Toileting Independent Feeding Independent Manufacturing Associate Independent Med Delivery whole Wound Care Documentation [...] Status Date: 09/28/24 Readmission Risk Assessment Score: [facility] RISK OF UNPLANNED READMISSION 2.0 16.9 Total Score Discharging to Facility/ Agency Name: [facility] Address: Fax: Dialysis Facility (if applicable) Name: Address: Dialysis Schedule: Phone: Fax: Powder Blender/Senior Embedded Software Engineer signature: at11:44 AM EST PHYSICIAN SECTION Prognosis: [...] Insulin Pen: How to Use: General Info (Armenian) * Diabetes: Type 2: General Info (Armenian) * Diabetes Diet Meal Planning: General Info (Armenian) * Seizure (Armenian) * Levetiracetam Extended Release Oral Tablet (LEVETIRACETAM - ORAL) (Armenian) documented in this [facility]Bon [facility] Hospital Discharge instructions* Discharge Instructions* Maulik [...] Carb Counting and Eating Well: General Info (Armenian) documented in [facility]IN[facility] History of Present illness Narrative* Saturnino Govea MD - 01/22/2024 12:43 PM EDT Images from the original note were not included. [facility] Progress Note Ortiz Gorman Date: 01/22/2024 LOS: 3 Reason for F/U : Possible meningitis Impression : Altered mental status concern for toxic metabolic encephalopathy versus primary UX SPECIALIST process Status post lumbar puncture 01/19/2024 at IR and CSF findings not consistent with primary UX SPECIALIST infection Respiratory failure-intubated for airway protection Extubated [...] on Rocephin, vancomycin, and acyclovir empirically for UX SPECIALIST infection Antibiotics were narrowed down to Rocephin [...] to call us back Infection Control Recommendations: [place] precautions Discharge Planning: Patient will need Midline [...] pressure was 240 prompting transfer here to [facility] The patient continued to get increasingly confused, [...] 0 Tube Number, CSF [address] [facility] Specimen Collected: 01/19/24 15:56 EDT [...] Component Value Units Date/Time Culture, Blood 1 [[id number]] Collected: 01/19/24813 Order Status: Completed Specimen: Blood Updated: 01/22/2418 Specimen Description .BLOOD Special Requests R HAND 5 ML Culture NO GROWTH 3 DAYS Culture, Blood 1 [[id number]] Collected: 01/19/24 0810 Order Status: Completed Specimen: Blood Updated: 01/22/24913 Specimen Description .BLOOD Special Requests L HAND 5 ML Culture NO GROWTH 3 DAYS Culture, CSF [[id number]] Collected: 01/19/24 1553 Order Status: Completed Specimen: CSF Updated: 01/22/24 0721 Specimen Description .CSF Direct Exam RARE NEUTROPHILS NO ORGANISMS SEEN Gram stain made from cytocentrifuged specimen. Organisms and cells will be concentrated. Culture NO GROWTH 3 DAYS Lyme Disease AB, CSF [[id number]] Collected: 01/19/24 1556 Order Status: Completed Specimen: [...] developed and its performance characteristics determined by [facility]. It has not been cleared or approved by the US Food and Drug Administration. This test was performed in a CLIA certified laboratory and is intended for clinical purposes. Performed By: [facility] [address] [place] [address] Lightout Examiner: Rogelio Miranda MD, PhD CLIA Number: [id number] VDRL CSF [[id number]] Collected: 01/19/24 1556 Order Status: Completed Specimen: CSF Updated: 01/20/24 1119 VDRL, CSF Screen NONREACTIVE Culture, Urine [[id number]] Collected: 01/19/24 0911 Order Status: Completed Specimen: Urine, straight catheter Updated: 01/20/24 0853 Specimen Description .URINE,STRAIGHT CATHETER Culture NO GROWTH Meningitis Encephalitis Panel CSF, Molecular [[id number]] Collected: 01/19/24 1556 Order Status: Completed Specimen: [...] nucleic acid assay. West Nile Virus, CSF [[id number]] Collected: 01/19/24 1556 Order Status: Sent Specimen: CSF Updated: 01/19/24 1557 Herpes simplex virus PCR [[id number]] Collected: 01/19/24 1548 Order Status: Sent Specimen: CSF Updated: 01/19/24 1548 Gram stain CSF [[id number]] Collected: 01/19/24 1546 Order Status: Canceled Specimen: Spinal Fluid Culture, Respiratory [[id number]] Order Status: No result Specimen: Endotracheal Respiratory Panel, Molecular, with COVID-19 (Restricted: peds pts or suitable admitted adults) [[id number]] Collected: 01/19/24 0909 Order Status: Completed Specimen: [...] nucleic acid assay. MRSA DNA Probe, Nasal [[id number]] Collected: 01/19/24 0437 Order Status: Completed Specimen: [...] [facility] Saturnino Govea MD [employer] OFFICE: Thank you for allowing us to [...] contextual diversion. * Marce Restrepo APRN - WAREHOUSE PRICING AND INVENTORY CLERK - 01/22/2024 8:07 AM EDT Images from [...] who was admitted as a transfer from [facility] on 01/19/2024 with persistent headache. While at [facility] patient reportedly worsened in regards to his mentation and became more confused and agitated prompting transfer to [facility] for further evaluation andcare. He was significantly hypertensive and was admitted to the medical ICU and placed on a Cardenedrip. The morning of 01/18 he continued to worsen and ultimately required intubation. Also developed a fever requiring an infectious workup; he underwent LP on 01/18 with findings not consistent with a primary UX SPECIALIST infection nor suggestive of SAH. No current [...] fluro performed by Vincent Kuhn DO at [facility] OR Social History: Ortiz Gorman reports that [...] a similar admission 3 months ago at [facility] with acute respiratory failure in the setting [...] to ensure the accuracy of this automated guidance services coordinator, some errors in guidance services coordinator may have occurred. Associated attestation - Addy [...] bands are pending. Will add [facility] encephalitis panel. Discussed with patient at [...] from the original note were not included. [facility] Internal Medicine Teaching Residency Program Inpatient Daily Progress Note Patient: Ortiz Gorman Date of : 1975 Acct: [id number] Room: [address] [place] [address] Admit date: 01/19/2024 Today's date: 01/22/24 Number [...] the past 1 to 2 days at [facility]. He wasalso noted to have left-sided facial droop, left-sided deficits and there was a concern for possible dysarthria, telestroke team was consulted. Imaging was negative for any kind of acute changes likeCT and CTA head and neck. His blood pressure was in the 240s, patient was started on Cardene drip with improvement. And later was transferred to the [facility] ICU. On arrival to the ICU his bloodsugars were in 500s, and was started on insulin drip. Patient was later intubated, due to concerns for central apnea for airway protection. For the concerns of UX SPECIALIST infection patient was started on Chaim ephin, vancomycin and acyclovir empirically. These antibiotics were narrowed down to Rocephin on 01/20/2024. Underwent MRI and LP for the concerns of UX SPECIALIST infections which were negative. His neurological status significantly improved after his blood pressure, blood sugars were controlled. On neurology evaluation, there was concern of acute encephalopathy of unclear origin, CSF studies had been ruling out any kind of UX SPECIALIST infection, and head imaging had been ruling [...] % and 0.45 % NaCl Stopped (01/20/24 1057) PRN Medicationsmelatonin, 5 mg, Nightly PRN labetalol, [...] Jamal Patel MD Internal Medicine Resident, PGY-1 [place], [place] 01/22/2024,7:13 AM Associated attestation - Trino [...] Attending Physician Internal Medicine Residency Program, Nephrology [facility] 01/22/2024, 1:22 PM * Jamal Patel MD - 01/21/2024 10:21 PM EDT Images from the original note were not included. [facility] Department of Internal Medicine - Staff Internal Medicine Service ICU PATIENT TRANSFER NOTE Patient: Ortiz Gorman Date of : 1975 Acct: [id number] Admit date: 01/19/2024 Code Status:- Full code [...] to 2days. He initially presented at the [facility]. He was also noted to have left-sided facial droop, left-sided deficits and there was a concern for possible dysarthria, telestroke team was consulted. Imaging was negative for any kind of acute changes like CT and CTA head and neck. His blood pressure was in the 240s, patient was started on Cardene drip with improvement. And later was transferred to the [facility] ICU. On arrival to the ICU his blood sugars were in 500s, and was started oninsulin drip. Patient was later intubated, due to central apnea for airway protection. For the concerns of UX SPECIALIST infection patient was started on Rocephin, vancomycin and acyclovir empirically. These antibiotics were narrowed down to Rocephin on 01/20/2024. Underwent MRI and LP for the concerns of UX SPECIALIST infections which were negative. His neurological status significantly improved after his blood pressure, blood sugars were controlled. On neurology evaluation, there was concern of acute encephalopathy of unclear origin, CSF studies had been ruling out any kind of UX SPECIALIST infection, and head imaging hadbeen ruling out [...] Jamal Patel MD Department of Internal Medicine [facility], [place] 01/21/2024, 10:22 PM * Aidee Rodriguez MD - 01/21/2024 6:20 PM EDT Critical care team - Resident sign-out to medicine service Date and time: 01/21/2024 6:21 PM Patient's name: Ortiz Gorman Patient's account/billing number: [id number] Patient's Date of : 1975 Age: 48 [...] and untreated hypertension Patient originally presented to [facility] with complaints of high sugars and a [...] of his pressures. Patient was transferred to [facility] ICU for further care and neuro evaluation. [...] New fever while in department. Concern for UX SPECIALIST infection. MRI and LP pending. 01/19: MRI [...] Aidee Rodriguez MD PGY-2, Internal Medicine Resident [facility], [place] 01/21/2024, 7:22 PM * Sarthak Sepulveda RN [...] the original note were not included. [facility] Neurology IN-PATIENT SERVICE NEUROLOGY PROGRESS NOTE [...] the chart was reviewed. Initially presented to [facility] on 01/17 evening due to persistent headache. Reportedly at [facility] patient worsened as far as his mentation becoming more confused, agitated requiring transfer to [place]. He was significantly hyp ertensive prompting medical [...] fluro performed by Vincent Kuhn DO at [facility] [place] Medications during admission: insulin glargine 15 [...] touch, pin, vibration, proprioception throughout Cerebellar Intact dvnpto-emfk-qcoeof testing. Intact heel-langley testing. No dysdiadochokinesia present. [...] emergency Similar admission 3 months ago at [facility] with acute respiratory failure in the setting of agitation and hypertensive crisis Plan: Patient essentially back to baseline neurologically. Did have discussion with him regarding the events leading up to hospitalization in which he just remembers feeling off . He states he felt like he did back in end of August when he had his first hospitalization at [facility] with elevated blood sugars and blood pressures. [...] unit at this time Addy Brown DO [facility] Neurology * Saturnino Govea MD - 01/21/2024 1:54 PM EDT Images from the original note were not included. [facility] Progress Note Ortiz Gorman Date: 01/21/2024 LOS: 2 Reason for F/U : Possible meningitis Impression : Altered mental status concern for toxic metabolic encephalopathy versus primary UX SPECIALIST process Status post lumbar puncture 01/19/2024 at IR and CSF findings not consistent with primary UX SPECIALIST infection Respiratory failure-intubated for airway protection Extubated [...] on Rocephin, vancomycin, and acyclovir empirically for UX SPECIALIST infection Antibiotics were narrowed down to Rocephin [...] the Rocephin as well Infection Control Recommendations: [place] precautions Discharge Planning: Estimated Length of IV antimicrobials: To be determined Patient will need Midline Catheter Insertion/ PICC line Insertion: No Patient will need: Home IV , Infusion Center, SNF, LTAC: Undetermined Patient willneed outpatient wound care: No Medical Decision making / Summary of Stay: Ortiz Gormna is a 48 y.o.-year-old male who was [...] pressure was 240 prompting transfer here to [facility] The patient continued to get increasingly confused, [...] 0 Tube Number, CSF 3 Resulting Agency [facility] Specimen Collected: 01/19/24 15:56 EDT Last Resulted: [...] Procedure Component Value Units Date/Time Culture, CSF [[id number]] Collected: 01/19/24 1553 Order Status: Completed Specimen: CSF Updated: 01/20/24729 Specimen Description .CSF Direct Exam RARE NEUTROPHILS NO ORGANISMS SEEN Gram stain made from cytocentrifuged specimen. Organisms and cells will be concentrated. Culture NO GROWTH 15 HOURS Culture, Blood 1 [[id number]] Collected: 01/19/24 0814 Order Status: Completed Specimen: Blood Updated: 01/19/242117 Specimen Description .BLOOD Special Requests R HAND 5 ML Culture NO GROWTH 12 HOURS Culture, Blood 1 [[id number]] Collected: 01/19/24 0810 Order Status: Completed Specimen: Blood Updated: 01/19/242113 Specimen Description .BLOOD Special Requests L HAND 5 ML Culture NO GROWTH 12 HOURS Meningitis Encephalitis Panel CSF, Molecular [[id number]] Collected: 01/19/24 1556 Order Status: Completed Specimen: [...] by multiplexed nucleic acid assay. VDRL CSF [[id number]] Collected: 01/19/24 1556 Order Status: Sent Specimen: CSF Updated: 01/19/24 1557 Lyme Disease AB, CSF [[id number]] Collected: 01/19/24 1556 Order Status: Sent Specimen: CSF Updated: 01/19/24 1557 West Nile Virus, CSF [[id number]] Collected: 01/19/24 1556 Order Status: Sent Specimen: CSF Updated: 01/19/24 1557 Herpes simplex virus PCR [[id number]] Collected: 01/19/24 1548 Order Status: Sent Specimen: CSF Updated: 01/19/24 1548 Gram stain CSF [[id number]] Collected: 01/19/24 1546 Order Status: Canceled Specimen: Spinal Fluid Culture, Respiratory [[id number]] Order Status: No result Specimen: Endotracheal Respiratory Panel, Molecular, with COVID-19 (Restricted: peds pts or suitable admitted adults) [[id number]] Collected: 01/19/24 0909 Order Status: Completed Specimen: [...] by multiplexed nucleic acid assay. Culture, Urine [[id number]] Collected: 01/19/24910 Order Status: Sent Specimen: Urine, straight catheter Updated: 01/19/24910 MRSA DNA Probe, Nasal [[id number]] Collected: 01/19/247 Order Status: Completed Specimen: Nasal [...] [facility] Saturnino Govea MD [employer] messaging OFFICE: Thank you for allowing us [...] and untreated hypertension Patient originally presented to [facility] with complaints of high sugars and a [...] of his pressures. Patient was transferred to [facility] ICU for further care and neuro evaluation. [...] New fever while in department. Concern for UX SPECIALIST infection. MRI and LP pending. 01/19: MRI [...] Date 01/21/24 0000 - 01/21/24 2359 Shift [id number] 9723-5631 4426-7882 24 Hour Total INTAKE I.V.(mL/kg) 955.3(10.4) 955.3(10.4) [...] PROPHYLAXIS: Stress ulcer: [x] PPI Agent [] [id number] [] Sucralfate [] Other: VTE: [] Enoxaparin [...] this chart was generated using voice recognition Memeon dictation software. Although every effort was made to ensure the accuracy of this automated guidance services coordinator, some errors in guidance services coordinator may have occurred. Sarmad Daly MD 01/21/2024 11:57 AM * Addy Brown DO - 01/20/2024 12:29 PM EDT Images from the original note were not included. [facility] Neurology IN-PATIENT SERVICE NEUROLOGY PROGRESS NOTE [...] the chart was reviewed. Initially presented to [facility] on 01/17 evening due to persistent headache. Reportedly at [facility] patient worsened as far as his mentation becoming more confused, agitated requiring transfer to [place]. He was significantly hyp ertensive prompting medical [...] fluro performed by Vincent Kuhn DO at [facility] [place] Medications during admission: cefTRIAXone (ROCEPHIN) IV [...] emergency Similar admission 3 months ago at [facility] with acute respiratory failure in the setting [...] abnormalities. Upon chart review he was at [facility] in September with similar type of presentation acute delirium, agitation requiring intubation and acute respiratory failure. Eventually was extubated and left AMA. At that time MRI brain was reported as normal. Critical care recommendations Continued blood pressure management Will follow Addy Brown DO [facility] Neurology * Saturnino Govea MD - 01/20/2024 8:41 AM EDT Images from the original note were not included. [facility] Progress Note Ortiz Gorman Date: 01/20/2024 LOS: 1 Reason for F/U : Possible meningitis Impression : Altered mental status concern for toxic metabolic encephalopathy versus primary UX SPECIALIST process Respiratory failure-intubated for airway protection Diabetes mellitus type 2 poorly controlled-currently on insulin Hypertensive emergency responded well to Cardene drip and has been able to wean off of it Concern for stroke given left-sided facial droop, dysarthria Chronic kidney disease stage III History of substance abuse Recommendations: The CSF findings are not consistent with a primary UX SPECIALIST infection and therefore the antimicrobial therapy will be narrowed to Rocephin alone The blood culture data thus far remains negative The patient's mentation is markedly improved he is awake and alert following commands and no focal deficits appreciated I will continue to follow his progress and adjust therapy accordingly Infection Control Recommendations: [place] precautions Discharge Planning: Estimated Length of IV [...] pressure was 240 prompting transfer here to [facility] The patient continued to get increasingly confused, [...] 0 Tube Number, CSF 3 Resulting Agency [facility] Specimen Collected: 01/19/24 15:56 EDT Last Resulted: [...] Procedure Component Value Units Date/Time Culture, CSF [[id number]] Collected: 01/19/24 1553 Order Status: Completed Specimen: CSF Updated: 01/20/2430 Specimen Description .CSF Direct Exam RARE NEUTROPHILS NO ORGANISMS SEEN Gram stain made from cytocentrifuged specimen. Organisms and cells will be concentrated. Culture NO GROWTH 15 HOURS Culture, Blood 1 [[id number]] Collected: 01/19/24 0814 Order Status: Completed Specimen: Blood Updated: 01/19/242117 Specimen Description .BLOOD Special Requests R HAND 5 ML Culture NO GROWTH 12 HOURS Culture, Blood 1 [[id number]] Collected: 01/19/24 0810 Order Status: Completed Specimen: Blood Updated: 01/19/242113 Specimen Description .BLOOD Special Requests L HAND 5 ML Culture NO GROWTH 12 HOURS Meningitis Encephalitis Panel CSF, Molecular [[id number]] Collected: 01/19/24 1556 Order Status: Completed Specimen: [...] by multiplexed nucleic acid assay. VDRL CSF [[id number]] Collected: 01/19/24 1556 Order Status: Sent Specimen: CSF Updated: 01/19/24 1557 Lyme Disease AB, CSF [[id number]] Collected: 01/19/24 1556 Order Status: Sent Specimen: CSF Updated: 01/19/24 155 West Nile Virus, CSF [[id number]] Collected: 01/19/24 1556 Order Status: Sent Specimen: CSF Updated: 01/19/24 1557 Herpes simplex virus PCR [[id number]] Collected: 01/19/24 1548 Order Status: Sent Specimen: CSF Updated: 01/19/24 1548 Gram stain CSF [[id number]] Collected: 01/19/24 1546 Order Status: Canceled Specimen: Spinal Fluid Culture, Respiratory [[id number]] Order Status: No result Specimen: Endotracheal Respiratory Panel, Molecular, with COVID-19 (Restricted: peds pts or suitable admitted adults) [[id number]] Collected: 01/19/24 0909 Order Status: Completed Specimen: [...] by multiplexed nucleic acid assay. Culture, Urine [[id number]] Collected: 01/19/24910 Order Status: Sent Specimen: Urine, straight catheter Updated: 01/19/24910 MRSA DNA Probe, Nasal [[id number]] Collected: 01/19/24 0437 Order Status: Completed Specimen: [...] [facility] Saturnino Govea MD [employer] OFFICE: Thank you for allowing us to [...] and untreated hypertension Patient originally presented to [facility] with complaints of high sugars and a [...] of his pressures. Patient was transferred to [facility] ICU for further care and neuro evaluation. [...] New fever while in department. Concern for UX SPECIALIST infection. MRI and LP pending. SUBJECTIVE: OVERNIGHT [...] Date 01/20/24 0000 - 01/20/24 2359 Shift [id number] 4165-5021 0234-8987 24 Hour Total INTAKE I.V.(mL/kg) 1365.5(15.2) 1365.5(15.2) [...] PROPHYLAXIS: Stress ulcer: [x] PPI Agent [] [id number] [] Sucralfate [] Other: VTE: [] Enoxaparin [...] this chart was generated using voice recognition Memeon dictation software. Although every effort was made to ensure the accuracy of this automated guidance services coordinator, some errors in guidance services coordinator may have occurred. Sarmad Daly MD 01/20/2024 [...] assess Fluid Accumulation: No significant fluid accumulation Mold Car Pusher Strength: Not Performed Nutrition Assessment: Pt admitted [...] Measures: Height: 177.8 cm (5' 10 ) [place] Body Weight (IBW): 166 lbs (75 kg) Admission Body Weight: 88.5 kg (195 lb 1.7 oz) Current Body Weight: 88.5 kg (195 lb 1.7 oz), 117.5 % IBW. Weight Source: Bed Scale Current BMI (kg/m2): 28 Weight Adjustment For: No Adjustment BMI Categories: Overweight (BMI 25.0-29.9) Estimated Daily Nutrient Needs: Energy Requirements Based On: Kcal/kg Weight Used for Energy Requirements: Admission Energy (kcal/day): 3705-5993 kcals/day Weight Used for Protein Requirements: Admission [...] to determine Alba Denson RD, ESE Contact: [phone] / [phone] * Toan Reece RN - 01/19/2024 3:22 PM EDT Patient to IR for lumbar puncture, assisted to table in prone position. JR PA and CM RT at bedside. Site prepped and draped, area numbed with lidocaine. 12ml of clear fluid drained. Specimen collected. Band aid placed to site. Patient tolerated well and is transported back to room with PHOTORADIO OPERATOR and respiratory therapist. * Xochitl Hampton MD [...] with daughter, Yamileth Gorman, who is a manager medical writing, at and updated on patient's condition, including [...] Nielson RP - 01/19/2024 11:[address] [facility] Pharmacokinetic Monitoring Service - Vancomycin [...] bedside Cardiology HTN emergency, SBP 250 at [facility] Cardene gtt now weaned off SBP [...] 13.2 Newly febrile to 101.1, afebrile at [facility] Meningitis prophylaxis initiated with acyclovir, rocephin, and vanco ID consulted Blood Cx NG < 24 h UA + moderate ketones, negative nitrite and LE, urine Cx pending RPP negative CRP 3.7 ESR 28 Endo DKA Glucose [phone] BHB 3.37 Insulin gtt, 1/2 NS gtt DKA protocol BMP q 4h HBA1c 12 Heme H/H 12.9 / 37 Plt 68 at [facility], 91 here DVT: Heparin SC, held this AM for lumbar puncture GI: Protonix WEAN PER PROTOCOL: [] No [x] Yes [] N/A ICU PROPHYLAXIS: Stress ulcer: [x] PPI Agent [] Q9Lpdin [] Sucralfate [] Other: VTE: [] Enoxaparin [...] change the decision. To exclude meningitis and IL ES or other etiology as patient is [...] this chart was generated using voice recognition Memeon dictation software. Although every effort was made to ensure the accuracy of this automated guidance services coordinator, some errors in guidance services coordinator may have occurred. Sarmad Daly MD 01/19/2024 10:52 AM documented in this encounterBON [facility]* Nursing Notes - Eveline Elias LPN - 09/24/2023 7:27 PM EST Patient leaving AMA at this time. This nurse educated patient and patient son about the risks of leaving AMA. Dr. Juarez notified on patient's decision. [facility]12-09-2023 Miscellaneous Notes* Nursing Notes - Eveline Elias [...] EST Head to toe reassessment completed by parts data writer and is unchanged from previous head to toe assessment,please refer to flow sheets. * Plan of Care - Natty Lloyd - 09/23/2023 9:39 AM EST Problem: Dysphagia (Adult) Goal: Functional/Safe Swallow Description: Diet Recommendations and Strategies Regular Thin Liquids Meds whole with thin liquid Plan of Care: Frequency: 1x follow up Duration: 1 week Goals: Captain/Airline Pilot: Ortiz Gorman will be able to consume [...] regarding dysphagia diagnosis, diet, and treatment recommendations. FORMULA MIXER will assist in establishing adequate oral hygiene [...] is 2022, still states he is at [facility], when reoriented that he is in [place] he states shoot I knew that . [...] at this time. Stated he is at [facility], the year is 2002, and Duran [...] nasal cannula. * Therapy Note - Salazar Hloley RRT - 09/22/2023 12:21 PM EST ABG [...] On admission to [facility] ICU, from ED a dual RN initial [...] bagged with 100% FiO2. documented in this encounterSumma [facility]12-[facility]-2023 Nurse Note* Nursing Notes - Eveline Elias LPN - 09/24/2023 4:00 PM EST Assessment unchanged from previous. Call light within reach. [facility]12-09-2023 Nurse Note* Nursing Notes - Eveline Elias LPN - 09/24/2023 12:00 PM EST Assessment completed at this time. Refer to flowsheets if any changes were made. Call light within reach. Pt denies having any needs. [facility]12-09-2023 Hospital course Narrative* Cecil Ivan APRN-PARKER [...] Now resolved UDS: Positive for MDMA - healthcare advisory services manager consulted: Patient denied using MDMA, [...] Discharge Follow-up: Vincent Winters MD [address] [facility] [id number] Call Post-Hospital Follow Up Discharge Disposition: Patient will be discharged in stable condition. Discharge Time: Including assessment, planning, and medication reconciliation was 8 minutes of WAREHOUSE PRICING AND INVENTORY CLERK time. Cecil Ivan CNP completing Discharge Summary for Dr. Bird Please note Portions of this note utilized AppsFlyer dictation software, please excuse any typographical or [...] Please note: Portions of this note utilized [employer] dictation software, please excuse any typographical or grammatical errors. Which inadvertently, might change the meaning and understanding. documented in this encounterSumma Health [facility]12-09-2023 Nurse Note* Nursing Notes - Toan Calvin RN - 09/24/2023 4:35 AM EST No change in assessment from previous [facility]12-08-2023 History of Present illness Narrative* TAN Moctezuma - 09/23/2023 4:35 PM EST 09/23/23 1300 Referral Information Arrived From home or self-care Information Source Information Source patient ;review of medical record Information Source Name Ortiz Sherif Contact Information Powder Blender/SW Added to Care Team Yes This Chemical Etching Processor is Primary Powder Blender/SW Yes Social Work Contact Name Rachael Fox Senior Embedded Software Engineer's Living Environment Lives With alone Living Arrangements house Primary Care Provided By self Support System Immediate family Able to Return to Prior Arrangements yes Functional Status Patient's Functional Status Prior To This Admission? Independent Employment/Financial Employed? Yes Employment Details [employer] Employment/Financial Concerns no Financial Concerns none Insurance Medical Insurance Verified Yes Initial Discharge Planning Home Care Services (DECK OFFICER) No DME (DECK OFFICER) Straight cane;Wheelchair;Walker Patient Goal for Discharge Return [...] Left UE Assessment Details Grossly 5/5 Hand Mold Car Pusher Strength Hand Mold Car Pusher Strength Interpretation Left above expected range (strong);Right above expected range (strong) Sit to Stand Transfer [place] Level: Sit->Stand supervision Assistive Device: Sit->Stand gait belt Stand to Sit Transfer [place] Level: Stand->Sit supervision Assistive Device: Stand->Sit gait belt Sitting Balance Static Sitting-Level of Assistance Independent Dynamic Sitting-Level of Assistance Independent Standing Balance Static Standing-Level of Assistance Supervision Dynamic Standing-Level of Assistance Supervision LE Dressing LE Dressing Assistance Independent LE Dressing Location edge of bed LE Dressing Intervention/Details Pt pulled up each leg to bed to doff/don bilateral ob/gyn physician socks withno hands-on assist required. Patient Education/Instruction [...] of Function Details Drove, independent. PRIOR LEVEL AM-[facility] Basic Mobility Inpatient Short Form Turning over in bed 4 - No Assistance Sitting/standing from chair 4 - No Assistance Moving from lying on back to sitting 4 - No Assistance Moving to and from bed to chair 4 - No Assistance Walk in hospital room 4 - No Assistance Climbing 3-5 steps with a railing 4 - No Assistance PRIOR LEVEL AM-[facility] Mobility Raw Score 24 PRIOR LEVEL AM-[facility] Mobility Functional Limitation/Modifier 0.00% Prior Functional Impairment [...] UE lean onto bed rail) Rolling/Turning Mobility [place] Level: Rolling/Turning independent Scooting Bridging Mobility [place] Level: Scooting/Bridging independent Supine to Sit Mobility [place] Level: Supine->Sit independent Skilled Intervention/Details: Supine->Sit Patient did require to sit EOB for short period prior to transition to stand. BP taken and no decrease from baseline. Sit to Stand Transfer [place] Level: Sit->Stand minimum assist (75% patient effort) Skilled Intervention/Details: Sit->Stand Assist needed d/t inability to maintain in one plane ofmovement, compensated for balance and/or functional weakness with a deviation to straight sit to stand. Bed-Chair Transfer [place] Level: Bed<->Chair (pt declined up to chair) Gait Assessment [place] Level: Gait moderate assist (50% patient effort) [...] the bed, patient w/ scissored gait) CURRENT -[facility] Basic Mobility Inpatient Short Form Turning over [...] a railing 1 - Total Assistance CURRENT -[facility] Mobility Raw Score 17 CURRENT -[facility] Mobility Functional Limitation/Modifier 50.57% Currently Impaired [...] falls. States he had multiple hospitalizations in [facility] previously for infection. Evaluation as noted, [...] Date: 09/21/2023 Date of Evaluation: 1:25 AM [facility] LOS: 2 days SUBJECTIVE: Patient [...] GI/DVT Prophylaxis: Protonix/Lovenox 6 minutes spent of WAREHOUSE PRICING AND INVENTORY CLERK time including assessment, planning, and discussion with [...] Please note: Portions of this note utilized AppsFlyer dictation software, please excuse any typographical or grammatical errors. Which inadvertently, might change the meaning and understanding. * Aracely Richard, SHOT BLAST EQUIPMENT OPERATOR-WAREHOUSE PRICING AND INVENTORY CLERK - 09/23/2023 11:01 AM EST Neurology Inpatient Progress Note (Video) [facility] 09/23/2023 Patient: Ortiz Gorman Date of : [...] problems updated. 47 y.o. male presented to [facility] on 09/21/2023 with AMS PLAN: Altered mentation- [...] & GROSS MOTOR: Abnormal Movements: None Coordination Hwlubf-pc-Arpo: Normal Coordination Tojl-Kofy-Jumi: Normal Drift: None Tone: Normal Bulk: Normal [...] conducted by the provider in the office: [address] [place] [address] and the patient offsite: [facility] Time spent in medical discussion with patient [...] assessment and plan and agree with the WAREHOUSE PRICING AND INVENTORY CLERK findings and plan of care as documented. [...] Portions of this chart were created using AppsFlyer electronic dictation. Please excuse any typographical or grammatical errors contained herein as a result. * Natty Desai - 09/23/2023 9:31 AM EST [facility] SPEECH-LANGUAGE PATHOLOGY Inpatient Clinical Dysphagia Evaluation Date of Admission: 09/21/2023 Date of Evaluation: 09/23/2023 Attending Physician: Karl Bird MD Admitting Diagnosis: ICD-10-CM 1. Altered mental status, unspecified altered mental status type R41.82 2. Hypertensive emergency I16.1 Treating Diagnosis: Dysphagia, other R13.19 Current Method of Nutrition: NPO without meds History of Presenting Illness: Ortiz Gorman is a 47 y.o. male who presents to [facility] ICU given AMS. He was intubated on 09/21/23 and extubated on 09/22/23. His drug screen was positive for Brian and MDMA. A Brain MRI from yesterday found no acute process. Ortiz Gorman was referred for a dysphagia evaluation given extubation and AMS. Prior FORMULA MIXER history/Instrumentals: No previous history of ST. No [...] phase appears WFL. STRATEGIES TRIALED/Response N/A N/A [place] Swallow Screen: (administered by: Nursing) [place] Swallow Screening Screening Exclusion Criteria: unable to remain alert for testing [place] Swallow Screening Result: excluded from swallow screen [...] 1x follow up Duration: 1 week Goals: Residential: Ortiz Gorman will be able to consume [...] regarding dysphagia diagnosis, diet, and treatment recommendations. FORMULA MIXER will assist in establishing adequate oral hygiene for reduced risk of pulmonary compromise given dysphagia diagnosis. Natty Desai MS, CCC-FORMULA MIXER Speech-Language Pathologist Total Treatment Time: 15 minutes * TAN Moctezuma - 09/22/2023 3:42 PM EST Chart reviewed. Patient extubated this afternoon. SW attempted to speak with patient x2 after extubation, neurology in room and then patient was at MRI. Will continue to follow. [facility]* Nursing Notes - Natalio Naranjo RN - 09/23/2023 12:00 PM EST Head to toe reassessment completed by parts data writer and is unchanged from previous head to toe assessment,please refer to flow sheets. [facility]12-08-2023 Procedure note* Coretta Ochoa - 09/23/2023 11:36 AM ESTAssociated Order(s): EEG AWAKE, ROUTINE Interpreting physician: Cecil Yu M.D. This is a routine EEG performed on a 47 y.o. year-old male using standard 10-20 lead placement and a [employer] system. All data was obtained digitally and [...] activity consistent with a moderate diffuse encephalopathy. [facility]12-08-[facility] Procedure note* Coretta Ochoa - 09/23/2023 11:36 AM ESTAssociated Order(s): EEG AWAKE, ROUTINE Interpreting physician: Cecil Yu M.D. This is a routine EEG performed on a 47 y.o. year-old male using standard 10-20 lead placement and a [employer] system. All data was obtained digitally and [...] a moderate diffuse encephalopathy. documented in this encounterSum[facility]12-[facility]-2023 Plan of care note* Plan of Care - Natty Desai - 09/23/2023 9:39 AM EST Problem: Dysphagia (Adult) Goal: Functional/Safe Swallow Description: Diet Recommendations and Strategies Regular Thin Liquids Meds whole with thin liquid Plan of Care: Frequency: 1x follow up Duration: 1 week Goals: Residential: Ortiz Gorman will be able to consume [...] regarding dysphagia diagnosis, diet, and treatment recommendations. FORMULA MIXER will assist in establishing adequate oral hygiene for reduced risk of pulmonary compromise given dysphagia diagnosis. Outcome: Ongoing [facility] [employer]12-08-2023 Nurse Note* Nursing Notes - Sujatha Walker RN - 09/23/2023 5:07 AM EST Patient more alert than previous assessment, this nurse asked patient if he remembers any events that has happened in the last day, he said he does remember a tube being down his thoat, but does not remember why. Educated patient on what happened. [facility] [employer]12-08-2023 Nurse Note* Nursing Notes - Sujatha Walker RN - 09/23/2023 3:16 AM EST Patient able to tell this nurse it is 2022, still states he is at [facility], when reoriented that he is in [place] he states shoot I knew that . Patient pleasant but still restless in the bed, continues to roll in circles, and get up on hands and knees and rock back and forth. [facility]12-08-2023 Nurse Note* Nursing Notes - Sujatha Walker RN - 09/23/2023 2:35 AM EST Patient had episode of bowel incontinence. Patient cleaned, and placed in a brief, linens changed as well. [facility]12-07-2023 Nurse Note* Nursing Notes - Sujatha Walker RN - 09/22/2023 11:30 PM EST Patient continues to pull lines and lead at this time. Patient pulled IV out. This nurse placed newiv in left hand at this time. [facility]12-07-2023 Nurse Note* Nursing Notes - Sujatha Walker RN - 09/22/2023 8:30 PM EST Patient continues to roll around in bed, and get on his hands and knees in the bed. This nurse redirected patient at this time. [facility]12-07-2023 Nurse Note* Nursing Notes - Sujatha Walker RN - 09/22/2023 7:35 PM EST Patient calm, but remains confused at this time. Stated he is at [facility], the year is 2002, and Duran is the president. Redirected patient at this time. [facility]12-07-2023 Nurse Note* Nursing Notes - Jennifer [...] temp on temporal thermometer. Jennifer Lopez RN [facility]12-07-2023 Nurse Note* Nursing Notes - Jennifer [...] placement at this time. Jennifer Lopez RN [facility]12-07-2023 Nurse Note* Nursing Notes - Jennifer [...] position in the bed. Jennifer Lopez RN [facility]12-07-2023 Nurse Note* Nursing Notes - Jennifer Lopez RN - 09/22/2023 3:07 PM EST Delia dupont MD. Patient going to MRI. Neuro in to see. Jennifer Lopez RN [facility]12-07-2023 Nurse Note* Nursing Notes - Jennifer Lopez RN - 09/22/2023 2:17 PM EST Patient still drowsy, wakes for a brief moment, will open eyes and look at you but will shake his head no to any question asked him. Son's updated on plan of care for patient. Jennifer Lopez RN [facility]12-07-[facility]23 Nurse Note* Nursing Notes - Jennifer Lopez RN - 09/22/2023 1:56 PM EST Patient was extubated at 1340, patient is drowsy but vitals are stable. Neurology consult made. RSVswab done and sent to lab. Son's at bedside. Jennifer Lopez RN [facility]12-07-2023 Progress note* Therapy Note - Salazar Holley RRT - 09/22/2023 1:36 PM EST Patient extubated and placed on 2LPM nasal cannula. [facility]12-07-[facility]23 Consult note* RODRIGUEZ Serrano - 09/22/2023 1:28 PM ESTAssociated Order(s): IP CONSULT TO NEUROLOGY Neurology Inpatient Consult (Video) [facility] 09/22/2023 Patient: Ortiz Gorman Date of : 1975 (47 y.o.) Referring Provider: Refer to consult order in electronic medical record PCP: Vincent Winters ASSESSMENT: Principal Diagnosis: Acute respiratory failure Active Pertinent Problems and Diagnoses Present on Admission: Acute respiratory failure Acute delirium Polysubstance use disorder Renal insufficiency Additional Active Pertinent Problems and Diagnoses No problems updated. 47 y.o. male presented to [facility] on 09/21/2023 with AMS PLAN: Altered mentation- [...] & GROSS MOTOR: Abnormal Movements: None Coordination Bjwvpf-wa-Bytl: Normal Coordination Lbjn-Essi-Mhbw: Normal- requires demonstration Drift: None Tone: Normal Bulk: Normal MUSCLE STRENGTH: Hand grasp equal bilaterally. Able to overcome antigravity and maintain. SENSATION: Fine Touch: Normal Patient verbally consents to the submissions of a Video health visit, patient is aware of the risks, benefits, and possible coinsurance/copay cost. Video was conducted by the provider in the office: [address] [place] [address] and the patient offsite: [facility] Time both providers spent in medical discussion with patient 72 minutes Aracely Richard APRN-WAREHOUSE PRICING AND INVENTORY CLERK [employer] Associated attestation - Cecil Yu MD - [...] assessment and plan and agree with the WAREHOUSE PRICING AND INVENTORY CLERK findings and plan of care as documented. [...] Portions of this chart were created using [employer] electronic dictation. Please excuse any typographical or grammatical errors contained herein as a result. [employer] [id number] Consult note* Aracely Richard APRN-WAREHOUSE PRICING AND INVENTORY CLERK - 09/22/2023 1:28 PM ESTAssociated Order(s): IP CONSULT TO NEUROLOGY Neurology Inpatient Consult (Video) [facility] 09/22/2023 Patient: Ortiz Gorman Date of : 1975 (47 y.o.) Referring Provider: Refer to consult order in electronic medical record PCP: Vincent Winters ASSESSMENT: Principal Diagnosis: Acute respiratory failure Active Pertinent Problems and Diagnoses Present on Admission: Acute respiratory failure Acute delirium Polysubstance use disorder Renal insufficiency Additional Active Pertinent Problems and Diagnoses No problems updated. 47 y.o. male presented to [facility] on 09/21/2023 with AMS PLAN: Altered mentation- [...] & GROSS MOTOR: Abnormal Movements: None Coordination Xtuzzi-et-Pjzp: Normal Coordination Wvcq-Tnzc-Vofh: Normal- requires demonstration Drift: None Tone: Normal Bulk: Normal MUSCLE STRENGTH: Hand grasp equal bilaterally. Able to overcome antigravity and maintain. SENSATION: Fine Touch: Normal Patient verbally consents to the submissions of a Video health visit, patient is aware of the risks, benefits, and possible coinsurance/copay cost. Video was conducted by the provider in the office: [address] [place] [address] and the patient offsite: [facility] Time both providers spent in medical discussion with patient 72 minutes Aracely Richard APRN-[facility] Associated attestation - Cecil Yu MD [...] assessment and plan and agree with the [facility] findings and plan of care as [...] Portions of this chart were created using [employer] electronic dictation. Please excuse any typographical or grammatical errors contained herein as a result. documented in this encounterSum[facility]12-[facility]-2023 Progress note* Therapy Note - Salazar Holley RRT - 09/22/2023 12:21 PM EST ABG results given to Dr. Bird. [facility] [employer] [facility] [id number] Progress note* Therapy Note - Salazar Holley RRT - 09/22/2023 12:[address] Bird called regrding abg results. No answer. Message left. [facility] [employer] [facility] [id number] Progress note* Therapy Note - Salazar Holley [...] was drawn. Patient remains in PS mode. [facility]12-07-2023 History and physical note* Cecil Ivan, SHOT BLAST EQUIPMENT OPERATOR-WAREHOUSE PRICING AND INVENTORY CLERK - 09/22/2023 10:05 AM EST History and [...] 09/21/2023 YELLOW APPEARANCE, URINE 09/21/2023 CLEAR Specific [place], Urine 09/21/2023 >1.030 (H) PH URINE 09/21/2023 [...] GLUCOSE, POINT OF CARE 09/21/2023 232 (H) Laborer Tin Can 09/21/2023 206,283 MAGNESIUM 09/21/2023 2.0 GLUCOSE, POINT OF CARE 09/21/2023 158 (H) Laborer [employer] 09/21/2023 205,802 GLUCOSE, POINT OF CARE 09/22/2023 109 (H) Laborer [employer] 09/22/2023 206,346 GLUCOSE, POINT OF CARE 09/22/2023 95 Laborer [employer] 09/22/2023 205,802 WBC (WHITE BLOOD COUNT) 09/22/2023 [...] 99. GLUCOSE, POINT OF CARE 09/22/2023 80 Laborer [employer] 09/22/2023 206,124 MAGNESIUM 09/22/2023 2.0 Impression and [...] for Dr. Bird 16 minutes spent of WAREHOUSE PRICING AND INVENTORY CLERK time including assessment, planning, and discussion with nursing staff and patient Please note Portions of this note utilized [employer] dictation software, please excuse any typographical or [...] Please note: Portions of this note utilized [employer] dictation software, please excuse any typographical or grammatical errors. Which inadvertently, might change the meaning and understanding. [employer]12-07-2023 Evaluation + Plan note* Assessment & Plan Note - RODRIGUEZ Shepherd - 09/22/2023 10:05 AM ESTAssociated Problem(s): Polysubstance use disorder Positive for benzos and MDMA Complete cessation will be advised [facility]12-07-2023 History and physical note* RODRIGUEZ Shepherd - [...] 09/21/2023 YELLOW APPEARANCE, URINE 09/21/2023 CLEAR Specific [place], Urine 09/21/2023 >1.030 (H) PH URINE 09/21/2023 [...] GLUCOSE, POINT OF CARE 09/21/2023 232 (H) Laborer [employer] [place] 09/21/2023 206,283 MAGNESIUM 09/21/2023 2.0 GLUCOSE, POINT OF CARE 09/21/2023 158 (H) Laborer [employer] Can 09/21/2023 205,802 GLUCOSE, POINT OF CARE 09/22/2023 109 (H) Laborer [employer] Can 09/22/2023 206,346 GLUCOSE, POINT OF CARE 09/22/2023 95 Laborer [employer] Can 09/22/2023 205,802 WBC (WHITE BLOOD COUNT) 09/22/2023 [...] 99. GLUCOSE, POINT OF CARE 09/22/2023 80 Laborer [employer] Can 09/22/2023 206,124 MAGNESIUM 09/22/2023 2.0 Impression and [...] Full Code GI/DVT Prophylaxis: Protonix/Lovenox Cecil Ivan, WAREHOUSE PRICING AND INVENTORY CLERK completing HPI for Dr. Bird 16 minutes spent of WAREHOUSE PRICING AND INVENTORY CLERK time including assessment, planning, and discussion with nursing staff and patient Please note Portions of this note utilized [employer] dictation software, please excuse any typographical or [...] Please note: Portions of this note utilized [employer] dictation software, please excuse any typographical or grammatical errors. Which inadvertently, might change the meaning and understanding. documented in this encounterSum[facility]12-[facility]-2023 Evaluation + Plan note * Assessment & Plan Note - RODRIGUEZ Shepherd - 09/22/2023 10:04 AM ESTAssociated Problem(s): Acute respiratory failure Patient without hypoxia - Intubated due to combativeness Attempt wean/extubate today CXR non-acute 02 per protocol, IS Routine aerosols [facility]12-07-2023 Evaluation + Plan note* Assessment & Plan Note - RODRIGUEZ Shepherd - 09/22/2023 10:04 AM ESTAssociated Problem(s): Acute delirium Secondary to drug effects CT head non-acute Supportive care [facility]12-07-2023 Nurse Note* Nursing Notes - Jennifer Lopez RN - 09/22/2023 7:56 AM EST Morning assessment completed, Patient at appropriate level of sedation. Resting comfortable in bed,eyes closed. Vitals stable. Patient's mother called in and update give. Morning Labs drawn. Jennifer Lopez RN [email or web address]12[facility] Plan of care note* Plan of Care [...] discharge/transition of care. Outcome: Progressing Toward Goal [email or web address]12-07-2023 Nurse Note* Nursing Notes - Amna Irvin RN - 09/22/2023 5:15 AM EST Precedex drip running, working to turn propofol down to wean off and precedex up to help keep pt calm. [facility] [employer] [id number] Nurse Note* Nursing Notes - Amna Irvin RN - 09/22/2023 4:20 AM EST Pt finally relaxing and less agitated, will continue to monitor. [facility] [employer] [id number] Nurse Note* Nursing Notes - Amna Irvin RN - 09/22/2023 3:15 AM EST Staff x4 in room to help protect pt as he is restless and agitated, sit up in bed, Dr. Bird notified to verify earlier order to change to precedex and discontinue propofol, states to proceed with this as stated earlier. [facility] [employer] [id number] Nurse Note* Nursing Notes - Amna Irvin RN - 09/22/2023 2:45 AM EST Pt awakens suddenly and quickly becomes agitated, due to situation propofol increased to try to calm pt. [facility] [employer] [id number] Nurse Note* Nursing Notes - Amna Irvin RN - 09/22/2023 1:15 AM EST Sedation titrated down due to low BP, pt then becomes very agitated and combative, BP increases, propofol titrated back up and pt calms, Dr. Bird notified of this, orders received. [facility] [employer] [id number] Nurse Note* Nursing Notes - Amna Irvin RN - 09/21/2023 9:30 PM EST Attempt to place OG without success, and then attempt NG also without success, pt becomes agitated during this, propofol adjusted. [facility] [employer] [id number] Emergency department Note* Josie Hannah RN - 09/21/2023 9:24 PM EST Call to family to update on transferr to ICU. Call to Sherly Gentile @ [phone]. [facility]12-06-20[facility] Emergency department Note* Josie Hannah RN - 09/21/2023 9:24 PM EST Call to family to update on transferr to ICU. Call to Sherly Gentile @ [phone]. * Sirena Hernandez RN - 09/21/2023 8:32 [...] 4:33 PM EST EMERGENCY DEPARTMENT REPORT [facility] ICU SERVICE DATE: 09/21/23 PCP: Vincent Winters [...] Extremities: No lower extremity pitting edema. Neurological: [place] coma Scale: 3. VITAL SIGNS DURING ED [...] Patient admitted to the ICU under the boat hoist operator helper service for further evaluation and treatment. ORDERS/RESULTS: [...] CARE 232 (H) 70 - 100 MG/DL Laborer [employer] Can 206,283 ARTERIAL BLOOD GAS Result Value Ref [...] YELLOW YELLOW APPEARANCE, URINE CLEAR CLEAR Specific [place], Urine >1.030 (H) 1.010 - 1.025 PH [...] Portions of this chart were created using [employer] electronic dictation. Please excuse any typographical or [...] was unresponsive. Per ems documented in this [facility]12-06-2023 Nurse Note* Nursing Notes - Amna Irvin RN - 09/21/2023 9:00 PM EST On admission to [facility] ICU, from ED a dual RN initial assessment of skin condition was performed by Amna Irvin RN and Joseline Paez RN. Skin Assessment: Skin within defined limits:Yes Pt has some scabs and abrasions to bilateral shins. Derek Score: 12 LDA Added:No Amna Irvin RN [facility]12-06-2023 Nurse Note* Nursing Notes - Amna Irvin RN - 09/21/2023 8:45 PM EST Loop here as pt arrives to ICU, [facility]12-06-2023 Emergency department Note* Sirena Hernandez RN - 09/21/2023 8:32 PM EST This RN speaks with loop and gives them patient name. [facility]12-06-2023 Emergency department Note* Josie Hannah RN - 09/21/2023 7:00 PM EST Multiple attempts at OG/NG tube placement unsuccessful, Dr Beltran aware. [facility]12-06-2023 Emergency department Note* Sirena Hernandez RN - 09/21/2023 6:18 PM EST Multiple attempts to place OG and NG tube by this RN, Deanna Barbosa RN, and Martina OCONNELL. All attempts unsuccessful. Family is waiting room, Dr Beltran aware and states he will talk with family. [facility]12-06-2023 Emergency department Note* Sirena Hernandez RN - 09/21/2023 5:35 PM EST Attempting to place OG tube. Patient is agitated and pulling arms and kicking legs. Dr Beltran aware. Verbal order to place vecuronium. [facility]12-06-2023 Emergency department Note* Sirena Hernandez RN - 09/21/2023 4:53 PM EST Lab bedside [facility]12-06-2023 Emergency department Note* Sirena Hernandez RN - 09/21/2023 4:44 PM EST Patient has abrasions to bilateral shins. Blood on patients jeans. [facility]12-06-2023 Progress note* Therapy Note - Cami Meyer RCP - 09/21/2023 4:36 PM EST Ventilator initiated at this time. Refer to flowsheets for settings and readings. [facility]12-06-2023 Physician Emergency department Note* Reginaldo Beltran MD - 09/21/2023 4:33 PM EST EMERGENCY DEPARTMENT REPORT [facility] ICU SERVICE DATE: 09/21/23 PCP: Vincent Winters [...] Extremities: No lower extremity pitting edema. Neurological: [place] coma Scale: 3. VITAL SIGNS DURING ED [...] Patient admitted to the ICU under the boat hoist operator helper service for further evaluation and treatment. ORDERS/RESULTS: [...] CARE 232 (H) 70 - 100 MG/DL Laborer [employer] [place] 206,283 ARTERIAL BLOOD GAS Result Value Ref [...] YELLOW YELLOW APPEARANCE, URINE CLEAR CLEAR Specific [place], Urine >1.030 (H) 1.010 - 1.025 PH [...] Portions of this chart were created using [employer] electronic dictation. Please excuse any typographical or grammatical errors contained herein. Reginaldo Beltran MD 09/21/232117 [facility]12-06-2023 Progress note* Therapy Note - Cami Meyer RCP - 09/21/2023 4:30 PM EST Pt intubated with size 8.0 ETT 26@ teeth by Dr Beltran. Positive color change on EtCO2 with equal breath sounds noted. Vocal cords visualized via GlideScope. SpO2 100% while being bagged with 100% FiO2. [facility]12-06-2023 Emergency department Note* Sirena Hernandez RN - 09/21/2023 4:25 PM EST BS 256. [facility]12-06-2023 Emergency department Note* Sirena Hernandez RN - 09/21/2023 4:22 PM EST Pt EMS patient was found at home by son and was unresponsive. Pt became combative en route to ED and was placed in soft restraints and given 7.5 mg versed. Pt arrives to ED unresponsive. [facility] [id number] Emergency department Note* Sirena Hernandez RN - 09/21/2023 4:[address] Beltran and respiratory bedside, [facility] [employer] [facility] [id number] Emergency department Note* Sirena Hernandez RN - 09/21/2023 4:21 PM EST Pt unresponsive. Per EMS, patient was found home by son and was unresponsive. Per ems [facility] [id number] Hospital Discharge instructions* Instructions* Lulú Bush DO - 04/20/2022 Start taking her blood pressure medication as prescribed. Please follow-up with your doctor in the next 2 to 3 days. * Attachments The following attachments cannot be sent through Care Everywhere. * HTN (Hypertension): Diuretics: General Info (Armenian) [facility] [employer]ango Phone: evaluation + Plan note No data available for this section [facility] [place] Evaluation note* Diagnosis Acute nonintractable headache, unspecified headache type- Primary Elevated blood pressure reading Elevated blood pressure reading without diagnosis of hypertension documented in this encounter [employer] Phone: evaluation note* Diagnosis Essential hypertension- Primary Unspecified essential hypertension Acute headache, unspecified headache type documented in this encounter [employer] Phone: [email or web address] note* Diagnosis Acute respiratory failure- Primary Altered mental status, unspecified altered mental status type Hypertensive emergency Unspecified essential hypertension Acute delirium Other alteration of consciousness Polysubstance use disorder Renal insufficiency Unspecified disorder of kidney and ureter Type 2 Diabetes (A1C > 6.49%) documented in this encounter [facility]* Diagnosis Hypertensive encephalopathy- Primary Hypertensive emergency Unspecified essential hypertension documented in this encounter [facility] note* Diagnosis Hypertensive encephalopathy- Primary [...] Central apnea Apnea documented in this encounter [facility] note* Diagnosis Hypertensive encephalopathy- Primary [...] hazards to health documented in this encounter [facility] note* Diagnosis DKA, type 2, not at [...] (HCC) documented in this encounter [facility] Discharge instructions* Instructions* Cheng Lira [...] through Care Everywhere. * Blood Pressure: Elevated (Armenian) * Headache (Armenian) [facility] Work Phone: Hospital Discharge instructions No data available for this section [facility] [employer] Progress note No data available for this section [facility] Reason for referral (narrative)* (Routine) Specialty Diagnoses / Procedures Referred By Contac t Referred To Contact [facility] [place] [facility] [address] [place] [address] Referral ID Status Reason Start Date Expiration Date Visits Re quested Visits Authorized * Unlisted Procedure Code (Routine) - New Request Specialty Diagnoses / Procedures Referred By Contac t Referred To Contact Procedures INPATIENT ADMISSION NOTIFICATION Karl Bird MD [address] [place] [address] Dr Trevino, DOMENICA [address] Referral ID Status Reason Start Date Expiration Date V isits Requested Visits Authorized [id number] New Request 09/21/2023 10/15/2024 1 1 * (Routine) Specialty Diagnoses / Procedures Referred By Contac t Referred To Contact [facility] [place] [facility] [address] [place] [address] Referral ID Status Reason Start Date Expiration Date Visits Re quested Visits Authorized 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 Pt does have a history of neuropathy and HTN Reason Comments Other Unresponsive. Snorin g respirations and periods of apnea Specialty Diagnoses / Procedures Referred By Sergei barbosa Referred To Contact Diagnoses Acute respiratory failure Hypertensive emergency Altered mental status, unspecified altered mental status type Karl Bird MD [address] [place] [place] [address] [facility] Referral ID Status Reason Start Date Expiration Date Visits Re quested Visits Authorized [id number] 1 1 Reason Comments Aphasia Headache Pt arrives to ED wit h slurred speech and headache weakness on left side. LKW appx 2129. Specialty Diagnoses / Procedures Referred By Sergei barbosa Referred To Contact Diagnoses Hypertensive encephalopathy Hypertensive emergency Hypertensive Emergency Sarmad Daly MD [address] [facility] [address] [place] [address] [facility] [address] [place] [address] Referral ID Status Reason Start Date Expiration Date Visits Re quested Visits Authorized [id number] 1 1 Reason Comments Altered Mental Status Patient known diab etic, found by family this am on floor. Last known well was 830 PM last night. Specialty Diagnoses / Procedures Referred By Sregei barbosa Referred To Contact Diagnoses DKA, type 2, not at goal (HCC) DKA, ARF Stanley Mckenzie MD [address] [facility] [address] [place] [address] [facility] [address] [place] [address] Referral ID Status Reason Start Date Expiration Date Visits Re quested Visits Authorized [id number] 1 1 Scheduled Active and Recently Administ [...] Jennifer Lopez RN)[phone] ($$New Bag$$ - Provider: uSjatha Walker, KOURTNEY) 0605 ($$New Bag$$ - Provider: Sujatha Walker, KOURTNEY)1419 (Stopped - Provider: Natalio Naranjo RN) albumin human 25 % injection 25 g () 25 g, Intravenous, Administer over 60 Minutes, EVERY 1 HOUR, 2 doses, First dose on Roz 09/22/23 at 1100, Last dose on Roz 09/22/23 at 1200, At [facility], in emergencies, administer as rapidly as necessary [...] to the hypoglycemia management protocol on Ellucid: L-CM-Desxojnlziom Management Protocol Haloperidol lactate (HALDOL) injection 5 [...] Extravasation Risk 0020 (Rate/Dose Change - Provider: Aman Irvin RN - Comment: decreased BP)0025 (Rate/Dose [...] to the hypoglycemia management protocol on Ell: L-RK-Upunzhuflzfe Management Protocol
And Dextrose 10% IV solution [...] at 1300, Until Specified
Who to Notify: TECHNICAL SUPPORT AGENT/Physician
For all Blood Glucose LESS THAN 70 mg/dl, or greater than 400 mg/dl notify TECHNICAL SUPPORT AGENT/Physician Scheduled Medication Order 01/17/2024 01/18/2024 01/19/2024 labetalol (NORMODYNE;TRANDATE) injection 20 mg (COMPLETED) 20 mg, IntraVENous, ONCE, 1 dose, On Tue01/18/24 at 1786 [id number] (Given - Provider: Renetta De La Fuente [...] sodium chloride 0.9 % 250 mL infusion (Mdec1Ksg) 2.5-15 mg/hr (25-150 mL/hr), IntraVENous, CONTINUOUS, Starting [...] be used to maintain goal. Use 20mm [id number] adapter. Preparation Instructions: Attach medication vial to one 20mm [id number] adapter. Darvin fluid bag with adaptor, mix, [...] 40 mg, IntraVENous, DAILY, First dose on Orz 01/19/24 at 0900, Reconstitute each 40 mg [...] sodium chloride 0.9 % 250 mL infusion (Yuta3Bwv) 2.5-15 mg/hr (25-150 mL/hr), IntraVENous, CONTINUOUS, Starting [...] used to maintain goal. Use 20mm (Blue) [id number] Adapter Preparation instructions: Attach medication vial to one 20mm (Blue) [id number] adapter. Darvin fluid bag with adapter, mix, [...] - Comment: Plan for Loop recorder implantation. TECHNICAL SUPPORT AGENT aware & ok to hold)1400 (Given - [...] Reason: Order parameters not met - Comment: [id number] (Not Given - Provider: Gabriela Rivas RN - Reason: Order parameters not met)1711 (Given - Provider: Gabriela Rivas RN)2128 (Not Given - Provider: Coretta A Mitchell, RN - Reason: Order parameters not met) 06 (Given - Provider: Coretta Mitchell RN - Comment: [phone] (Given - Provider: Gabriela Rivas RN)162 (Given - Provider: Gabriela Rivas RN)2014 (Given - Provider: Delmy Anedrson, KOURTNEY) levETIRAcetam (KEPPRA) injection 1,000 mg (CANCELED) [...] 0845 (Given - Provider: Archana Kenyon RN) losartan [...] mg from all sources in 24 hours. zstosgmt-vtczzfktrs-mlllyahg ne (CETACAINE) spray (CANCELED) PRN, Starting on [...] for injection by adding 1 mL of x ray equipment tester-supplied sterile diluent or sterile water for injection [...] Care Teams (unrecognized sec tion and content) Restaurant Crew Member Relationship Specialty Start Date End Date Vincent Winters MD [address] [place] [address] PCP - General Family Medicine 10/27/21 Restaurant Crew Member Relationship Specialty Start Date End Date Vincent Winters MD [address] [place], [place] [phone] PCP - General Family Medicine 10/27/21 Restaurant Crew Member Relationship Specialty Start Date End Date Vincent Winters MD [address] [place] [id number] PCP - General Family Medicine 09/21/23 Restaurant Crew Member Relationship Specialty Start Date End Date Vincent Winters MD [address] [place] [id number] PCP - General Family Medicine 10/27/21 Restaurant Crew Member Relationship Specialty Start Date End Date Vincent Winters MD [address] [place] [address] PCP - General Family Medicine 10/27/21 Restaurant Crew Member Relationship Specialty Start Date End Date Vincent Winters MD [address] [place] [address] PCP - General Family Medicine 10/27/21 Restaurant Crew Member Relationship Specialty Start Date End Date Vincent Winters MD [address] [place] [address] PCP - General Family Medicine 10/27/21 Restaurant Crew Member Relationship Specialty Start Date End Date Vincent Winters MD [address] [place] [address] PCP - General Family Medicine 10/27/21 Restaurant Crew Member Relationship Specialty Start Date End Date Vincent Winters MD [address] [place] [address] PCP - General Family Medicine 10/27/21 Restaurant Crew Member Relationship Specialty Start Date End Date Vincent Winters MD [address] [place] [address] PCP - General Family Medicine 10/27/21 Ordered [...] DATE CREATED AUTHOR AUTHOR'S ORGANIZ ATION 08/14/2023 [facility] DATE CREATED AUTHOR AUTHOR'S ORGANIZ ATION 10/23/2023 [facility] DATE CREATED AUTHOR AUTHOR'S ORGANIZ ATION 03/01/2024 [facility] DATE CREATED AUTHOR AUTHOR'S ORGANIZ ATION 03/02/2024 [facility] DATE CREATED AUTHOR AUTHOR'S ORGANIZ ATION 12/07/2024 [facility] DATE CREATED AUTHOR AUTHOR'S ORGANIZ ATION 12/12/2024 [facility] FOR RECORDS PERTAINING TO PATIENTS [...] BE BASED ON THE PRIMARY CLINICAL RECORDS. [employer] provides no warranty or guarantee of the accuracy or completeness of information in this document.
[2025-01-15 04:39] LABS: Glucometer 314 mg/dL (74-106)
[2025-01-15 06:30] LABS: Hemoglobin 7.2 g/dL (14.0-18.0); Mean Corpuscular HGB Conc 35.1 g/dL (29.9-35.2); Mean Corpuscular Hemoglobin 29.8 pg (25.9-34.0); Mean Corpuscular Volume 84.7 fL (80.0-94.0); Mean Platelet Volume 10.3 fL (9.5-13.5); Platelet Count 190 10^3/uL (150-450); Red Blood Count 2.42 10^6/uL (4.70-6.10); Red Cell Distribution Width 12.9 % (11.0-15.0); White Blood Count 26.1 10^3/uL (4.0-11.0)
[2025-01-15 06:33] LABS: Hematocrit 20.5 % (42.0-54.0)
[2025-01-15 06:47] LABS: Alanine Aminotransferase 24 U/L (16-63); Albumin Globulin Ratio 0.6; Albumin Level 2.1 g/dL (3.4-5.0); Alkaline Phosphatase 125 U/L (46-116); Anion Gap 16.1; Aspartate Amino Transferase 66 U/L (15-37); BUN Creatinine Ratio 22.9; Bilirubin Total 0.6 mg/dL (0.2-1.0); Calcium 8.2 mg/dL (8.5-10.1); Carbon Dioxide 21.8 mmol/L (21.0-32.0); Chloride 97 mmol/L (98-107); Estimated GFR (African America 18 (>=60 mL/min/1.73m^2); Estimated GFR (Non-African Ame 15 (>=60 mL/min/1.73m^2); Globulin 3.6 g/dL; Glucose 291 mg/dL (74-106); Potassium 5.9 mmol/L (3.5-5.1); Sodium 129 mmol/L (136-145); Total Protein 5.7 g/dL (6.4-8.2)
[2025-01-15 07:29] LABS: Glucometer 338 mg/dL (74-106)
[2025-01-15 07:46] LABS: C Reactive Protein 26.48 mg/dL (<=0.50); Magnesium 2.5 mg/dL (1.8-2.4)
[2025-01-15 07:51] LABS: INR 1.41; Prothrombin Time 14.4 sec (9.0-11.6)
--- NOTE | 2025-01-15 08:13 | P.HP_ITS ---
HPI H&P: HPI History of Present Illness Chief complaint: SHAKING NECK PAIN, SEPSIS, BILATERAL FOOT INFECTIO Narrative: Patient presented emergency room with altered mental status, fever, not taking his medications recently, was post to see wound management for foot ulcers and has not followed through with that, in ER workup found significant lactic acidosis leukocytosis fever greater than 102 and respiratory distress consistent with severe sepsis, without shock I saw patient up in the medical surgical floor, he was answering questions he is a little slow with his answers compared to his baseline as described back pain, try to get him to do range of motion his neck and was difficult Opioid HPI Opioid Management Most Recent Pain and Opioid Data: Last Pain Scale 8 01/15/25 08:00 01/15/25 Last Pain Assessment 01/15/25 08:00 Last ORT Total Score 0 01/15/25 04:50 01/15/25 Last ORT Risk Category Low Risk 01/15/25 04:50 01/15/25 Review of Systems ROS Status of ROS 10 or more systems reviewed and unremark able except as noted in history and below PFSH PFS Medical History (Updated 01/15/25 @ 08:40 by Vincent Martinez MD) Hypoalbuminemia ?E88.09 - Other disorders of plasma-protein metabolism, not elsewhere classified (ICD-10) Hypertension ?I10 - Essential (primary) hypertension (ICD-10) Acute hyperkalemia ?E87.5 - Hyperkalemia (ICD-10) Acute kidney injury ?N17.9 - Acute kidney failure, unspecified (ICD-10) Anasarca ?R60.1 - Generalized edema (ICD-10) Type 2 diabetes mellitus with hyperglycemia ?E11.65 - Type 2 diabetes mellitus with hyperglycemia (ICD-10) Dyslipidemia ?E78.5 - Hyperlipidemia, unspecified (ICD-10) Benign essential hypertension ?I10 - Essential (primary) hypertension (ICD-10) Uncontrolled hypertension ?I10 - Essential (primary) hypertension (ICD-10) Infection of muscle of back ?M60.08 - Infective myositis, other site (ICD-10) Diabetes ?E11.9 - Type 2 diabetes mellitus without complications (ICD-10) Family History (Updated 11/05/24 @ 00:32 by Trinity Moore) Other Family history of diabetes mellitus Family history of hypertension Family history of stroke Social History (Updated 04/01/25 @ 05:08 by Alison Og RN) Within the past year, how often did you have a drink containing alcohol: monthly or less Within the past year, how many standard drinks containing alcohol did you have on a typical day: 1 or 2 Within the past year, how often did you have six or more drinks on one occasion: never Total score: 0 Score interpretation: A score less than 4 is consistent with normal alcohol consumption. 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 Known occupational exposures/hazards: No Highest level of school completed/degree received: high school graduate Are you now , , , , never or living with a partner: In a typical week, how many times do you talk on the telephone with family, friends, or neighbors: twice per week How often do you get together with friends or relatives: once per week How often do you attend rastafari or protestant services: never Do you belong to any clubs or organizations such as rastafari groups unions, [employer] or athletic groups, or school groups: no Total score: 1 Score interpretation: A score of less than or equal to 1 indicates the most socially isolated. Little interest or pleasure in doing things: not at all Feeling down, depressed, or hopeless: not at all Feel stressed/tense/nervous/anxious/difficulty sleeping: to some extent Life stressors: unknown source of stress Due to disability, difficulty making decisions: No Do you think of yourself as: straight/heterosexual Gender Identity: male Meds Home Medications and Allergies Home Medications ?Medication ?Instructions ?Recorded ?Confirmed ?Type blood-glucose meter,continuous 10/15/23 11/05/24 History (Dexcom G6 Photonics Engineer) blood-glucose sensor (Dexcom G6 10/15/23 11/05/24 History Sensor device) blood-glucose transmitter (Dexcom 10/15/23 11/05/24 History G6 Transmitter device) pen needle, diabetic 31 gauge x 10/15/23 11/05/24 History 5/16 (Easy Comfort Pen [place]) atorvastatin 40 mg tablet 40 mg PO DAILY 11/04/24 01/15/25 History carvedilol 25 mg tablet 25 mg PO BID 11/04/24 01/15/25 History insulin glargine 100 unit/mL (3 24 unit subcut QPM 11/04/24 01/15/25 History mL) subcutaneous pen (Lantus Solostar U-100 Insulin) insulin lispro 100 unit/mL 1 sliding scale dose subcut TID 11/04/24 01/15/25 H istory subcutaneous pen (Humalog KwikPen (U-100) Insulin) levetiracetam 500 mg tablet 500 mg PO BID 11/04/24 01/15/25 History clonidine HCl 0.1 mg tablet 0.1 mg PO BID #60 tabs 11/07/24 01/15/25 Rx magnesium oxide 400 mg (241.3 mg 400 mg PO BID #60 tabs 11/07/24 01/15/25 Rx magnesium) tablet amlodipine 10 mg tablet 10 mg PO DAILY 01/15/25 01/15/25 History aspirin 81 mg tablet,delayed 81 mg PO DAILY 01/15/25 01/15/25 History release bumetanide 1 mg tablet 1 - 2 mg PO DAILY 01/15/25 01/15/25 History hydralazine 50 mg tablet 50 mg PO BID 01/15/25 01/15/25 History lisinopril 20 mg tablet 20 mg PO DAILY 01/15/25 01/15/25 History Allergies Allergy/AdvReac Type Severity Reaction Status Date / Time levetiracetam (From [facility]) AdvReac Mild Drowsy Verified 01/14/25 23:32 Exam Constitutional Vital Signs, click to edit/add: Last Vital Signs Temp 97.9 F 01/15/25 04:50 Pulse 78 01/15/25 08:00 Resp 18 01/15/25 04:50 BP 127/68 01/15/25 04:50 Pulse Ox 92 L 01/15/25 04:50 O2 Del Method Room Air 01/15/25 04:50 Documenting provider has reviewed patient's vital signs: yes Common normals: no apparent distress (Seems slow with his responses) Chest Common normals: inspection of chest normal Respiratory Common normals: normal respiratory effort and no retractions Cardio Common normals: regular rate, regular rhythm and no murmurs GI Common normals: Normal to inspection, nondistended, normoactive bowel sounds present, soft to palpation and non-tender Extremity Common normals: abnormal to inspection (Multiple wounds bilateral heels with surrounding erythema) Results Labs Labs: Short CBC 01/14/25 01/15/25 Range/Units 23:20 06:23 WBC 25.3 H 26.1 H (4.0-11.0) 10^3/uL Hgb 8.0 L 7.2 L (14.0-18.0) g/dL Hct 23.4 L* 20.5 L* (42.0-54.0) % Plt Count 216 190 (150-450) 10^3/uL BMP 01/14/25 01/15/25 23:20 06:23 Sodium 127 L 129 L Potassium 5.8 H 5.9 H Chloride 93 L 97 L Carbon Dioxide 22.2 21.8 BUN 89.0 H* 96.0 H* Creatinine 4.40 H 4.19 H Glucose 397 H 291 H Calcium 8.7 8.2 L Liver Function 01/14/25 01/15/25 Range/Units 23:20 06:23 Total Bilirubin 0.6 0.6 (0.2-1.0) mg/dL AST 69 H 66 H (15-37) U/L ALT 32 24 (16-63) U/L Alkaline Phosphatase 146 H 125 H (46-116) U/L Albumin 2.3 L 2.1 L (3.4-5.0) g/dL Urine 01/15/25 Range/Units 02:19 Urine Color Lt. yellow (YELLOW) Urine Clarity Clear (CLEAR) Urine pH 6.0 (5.0-9.0) Ur Specific [place] 1.025 (1.005-1.025) Urine Protein >=300 A (NEG/TRACE) mg/dL Urine Glucose (UA) >=1000 A (NEGATIVE) mg/dL ABG ABG results: 01/15/25 00:20 ABG pH 7.399 ABG pCO2 35.2 ABG pO2 71.4 L ABG HCO3 21.7 L ABG O2 Saturation 94.5 ABG Base Excess -3.1 L Assessment and Plan Assessment and Plan (1) Hyperglycemia due to diabetes mellitus: (2) Altered mental status: (3) Diabetic foot infection: (4) Sepsis: (5) Severe sepsis: (6) Acute hyperkalemia: (7) Hypertension: (8) Hypoalbuminemia: (9) Acute kidney injury: (10) Diabetes: (11) Immune deficiency disorder, disease or syndrome: Plan Patient with fever, respiratory distress, leukocytosis, lactic acidosis, acute renal failure (baseline creatinine of 1.68 for his wellness exam, admission creatinine of 4.40 which is 261.9% above baseline with decreased urine output resulting acute kidney injury stage II) hyperkalemia, hyponatremia, elevated liver function tests consistent with severe sepsis possibly related to foot ulcers concerning for meningitis with neck pain Altered mental status with severe sepsis with the etiology not completely resolved-possible from his foot, concerning for meningitis with current symptoms of nuchal rigidity and neck pain concerning for meningitis-CT scan of brain, discussed with RECREATION FACILITY ATTENDANT about doing spinal tap fluid orders placed, changed antibiotics to include vancomycin, ampicillin, imipenem, blood cultures already drawn Acute kidney injury stage II-IV fluids, need to be fairly slow with that secondary to history of fluid overload with recent admission Immune deficiency disorder - this is related to his poorly controlled diabetes mellitus and is complicating the above severe sepsis Hyponatremia secondary to the above-monitor daily improved so far Hyperkalemia-improved Poorly controlled diabetes mellitus-patient not using his home medications, will restart there and adjust sliding scale as needed Liver function test likely related to the sepsis, severe, as outlined above- monitor daily, check PT PTT Hypomagnesemia by history-check level Chronic kidney disease stage III-deteriorated as outlined above Hypertension-continue with home medications Diabetic foot ulcer leading to the possible sepsis-consult to podiatry, antibiotics for meningitis would cover Admission status: Patient with severe sepsis possibly meningitis with significant leukocytosis, lactic acidosis and altered mental status, medically necessary treatment will span 2 midnights. Inpatient status Urinary Catheter Management Urinary Catheter Management Pure Wick: Cath placed during this visit: no
[2025-01-15] MEDS: PANTOPRAZOLE SODIUM 40 MG VIAL IV (08:58)
[2025-01-15] MEDS: CLONIDINE HCL 0.1 MG TABLET PO ×2 (08:58→21:16)
[2025-01-15] MEDS: MAGNESIUM OXIDE 400 MG TABLET PO ×2 (08:58→21:16)
[2025-01-15] MEDS: INSULIN ASPART 300 UNIT/3 ML PEN SUBQ ×4 (08:58→23:48)
[2025-01-15] MEDS: CARVEDILOL 25 MG TABLET PO ×2 (08:58→21:17)
[2025-01-15] MEDS: ATORVASTATIN CALCIUM 40 MG TABLET PO (08:58)
[2025-01-15] MEDS: AMPICILLIN SODIUM 2,000 MG in 0.9 % SODIUM CHLORIDE 100 ML 200 MG IV ×3 (09:02→23:52)
[2025-01-15] MEDS: HYDRALAZINE HCL 50 MG TABLET PO ×2 (09:28→21:17)
--- NOTE | 2025-01-15 09:39 | PM.ANCN1 ---
HPI - Anesthesiology Consult HPI Consult date: 01/15/25 Requesting physician: Vincent Martinez Consult reason: Request for Lumbar puncture Chief complaint: SHAKING NECK PAIN, SEPSIS, BILATERAL FOOT INFECTIO [facility] Medical History (Updated 01/15/25 @ 08:40 by Vincent Martinez MD) Hypoalbuminemia ?E88.09 - Other disorders of plasma-protein metabolism, not elsewhere classified (ICD-10) Hypertension ?I10 - Essential (primary) hypertension (ICD-10) Acute hyperkalemia ?E87.5 - Hyperkalemia (ICD-10) Acute kidney injury ?N17.9 - Acute kidney failure, unspecified (ICD-10) Anasarca ?R60.1 - Generalized edema (ICD-10) Type 2 diabetes mellitus with hyperglycemia ?E11.65 - Type 2 diabetes mellitus with hyperglycemia (ICD-10) Dyslipidemia ?E78.5 - Hyperlipidemia, unspecified (ICD-10) Benign essential hypertension ?I10 - Essential (primary) hypertension (ICD-10) Uncontrolled hypertension ?I10 - Essential (primary) hypertension (ICD-10) Infection of muscle of back ?M60.08 - Infective myositis, other site (ICD-10) Diabetes ?E11.9 - Type 2 diabetes mellitus without complications (ICD-10) Family History (Updated 11/05/24 @ 00:32 by Trinity Moore) Other Family history of diabetes mellitus Family history of hypertension Family history of stroke Social History (Updated 01/15/25 @ 05:08 by Alison Og RN) Within the past year, how often did you have a drink containing alcohol: monthly or less Within the past year, how many standard drinks containing alcohol did you have on a typical day: 1 or 2 Within the past year, how often did you have six or more drinks on one occasion: never Total score: 0 Score interpretation: A score less than 4 is consistent with normal alcohol consumption. 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 Known occupational exposures/hazards: No Highest level of school completed/degree received: high school graduate Are you now , , , , never or living with a partner: In a typical week, how many times do you talk on the telephone with family, friends, or neighbors: twice per week How often do you get together with friends or relatives: once per week How often do you attend bahai or druze services: never Do you belong to any clubs or organizations such as bahai groups unions, fraternal or athletic groups, or school groups: no Total score: 1 Score interpretation: A score of less than or equal to 1 indicates the most socially isolated. Little interest or pleasure in doing things: not at all Feeling down, depressed, or hopeless: not at all Feel stressed/tense/nervous/anxious/difficulty sleeping: to some extent Life stressors: unknown source of stress Due to disability, difficulty making decisions: No Do you think of yourself as: straight/heterosexual Gender Identity: male Meds Home Medications and Allergies Home Medications ?Medication ?Instructions ?Recorded ?Confirmed ?Type blood-glucose meter,continuous 10/15/23 01/15/25 History (Dexcom G6 Furnace Maintenance) pen needle, diabetic 31 gauge x 10/15/23 01/15/25 History 516 (Easy Comfort Pen [place]) atorvastatin 40 mg tablet 40 mg PO DAILY 11/04/24 01/15/25 History carvedilol 25 mg tablet 25 mg PO BID 11/04/24 01/15/25 History insulin glargine 100 unit/mL (3 24 unit subcut QPM 11/04/24 01/15/25 History mL) subcutaneous pen (Lantus Solostar U-100 Insulin) insulin lispro 100 unit/mL 1 sliding scale dose subcut TID 11/04/24 01/15/25 History subcutaneous pen (Humalog KwikPen (U-100) Insulin) levetiracetam 500 mg tablet 500 mg PO BID 11/04/24 01/15/25 History clonidine HCl 0.1 mg tablet 0.1 mg PO BID #60 tabs 11/07/24 01/15/25 Rx magnesium oxide 400 mg (241.3 mg 400 mg PO BID #60 tabs 11/07/24 01/15/25 Rx magnesium) tablet amlodipine 10 mg tablet 10 mg PO DAILY 01/15/25 01/15/25 History aspirin 81 mg tablet,delayed 81 mg PO DAILY 01/15/25 01/15/25 History release bumetanide 1 mg tablet 1 - 2 mg PO DAILY 01/15/25 01/15/25 History hydralazine 50 mg tablet 50 mg PO BID 01/15/25 01/15/25 History lisinopril 20 mg tablet 20 mg PO DAILY 01/15/25 01/15/25 History Allergies Allergy/AdvReac Type Severity Reaction Status Date / Time levetiracetam (From [facility]) AdvReac Mild Drowsy Verified 01/14/25 23:32 Exam Constitutional: Vital Signs, click to edit/add: Last Vital Signs Temp 98.5 F 01/15/25 08:22 Pulse 79 01/15/25 08:22 Resp 18 01/15/25 08:22 BP 135/78 01/15/25 08:22 Pulse Ox 92 L 01/15/25 08:22 O2 Del Method Room Air 01/15/25 08:22 Results Labs Labs: Short CBC 01/14/25 01/15/25 Range/Units 23:20 06:23 WBC 25.3 H 26.1 H (4.0-11.0) 10^3/uL Hgb 8.0 L 7.2 L (14.0-18.0) g/dL Hct 23.4 L* 20.5 L* (42.0-54.0) % Plt Count 216 190 (150-450) 10^3/uL BMP 01/14/25 01/15/25 23:20 06:23 Sodium 127 L 129 L Potassium 5.8 H 5.9 H Chloride 93 L 97 L Carbon Dioxide 22.2 21.8 BUN 89.0 H* 96.0 H* Creatinine 4.40 H 4.19 H Glucose 397 H 291 H Calcium 8.7 8.2 L Liver Function 01/14/25 01/15/25 Range/Units 23:20 06:23 Total Bilirubin 0.6 0.6 (0.2-1.0) mg/dL AST 69 H 66 H (15-37) U/L ALT 32 24 (16-63) U/L Alkaline Phosphatase 146 H 125 H (46-116) U/L Albumin 2.3 L 2.1 L (3.4-5.0) g/dL Urine 01/15/25 Range/Units 02:19 Urine Color Lt. yellow (YELLOW) Urine Clarity Clear (CLEAR) Urine pH 6.0 (5.0-9.0) Ur Specific [place] 1.025 (1.005-1.025) Urine Protein >=300 A (NEG/TRACE) mg/dL Urine Glucose (UA) >=1000 A (NEGATIVE) mg/dL ABG ABG results: 01/15/25 00:20 ABG pH 7.399 ABG pCO2 35.2 ABG pO2 71.4 L ABG HCO3 21.7 L ABG O2 Saturation 94.5 ABG Base Excess -3.1 L Assessment and Plan Assessment and Plan (1) Hyperglycemia due to diabetes mellitus: (2) Altered mental status: (3) Diabetic foot infection: (4) Sepsis: (5) Severe sepsis: (6) Immune deficiency disorder, disease or syndrome:
--- NOTE | 2025-01-15 09:42 | P.ANBPRC_ITS ---
Anesthesia Bedside Procedure Procedural Section Pre-procedural diagnosis: Sepsis, Nuchal Rigidity Post-procedural diagnosis: Sepsis, Nuchal Rigidity Written consent obtained: health care proxy (Rudi Contreras (Son) and Patient) Verification/time out: correct patient, correct site, correct procedure and time out performed Name of person performing procedure: Noah Beltran Assistance, if any: Xochitl Felix ASA class: IV Mallampati classification: III. soft palate and base of uvula visible Preparation: color television console monitor applied and pulse oximeter Complications: none Conclusion: patient tolerated procedure Additional Procedures Name of procedure: Lumbar Puncture Pre- procedure diagnosis: Sepsis, Nuchal Rigidity Written consent: health care proxy (Rudi Contreras (Son) and Patient) Site marking: not applicable Verification/time out: correct patient, correct site, correct procedure and time out performed Estimated blood loss (if any): less than 5 mls Specimens removed (if any): Cerebral Spinal Fluid Description/Findings: Anesthesia Consult placed by Dr Martinez to complete a lumbar puncture to rule out meningitis on patient. Consent obtained from son and patient for lumbar puncture to be completed with risks discussed. Patient assisted to sitting position. Time out performed. Sterile prep completed with Chlorhexidine. Patient draped and 3mL of 1% lidocaine used as local anesthetic. Multiple attempts made without success. Repositioned patient and localized 1 level higher approximately L2-L3. Successful dural puncture and CSF obtained. Opening pressure was 31 cm H2O. 4 specimens of 1-2 mL of CSF were obtained using sterile technique. Spinal needle removed and bandage applied to site. Instructions for patient to remain flat for at least 2 hours after procedure given to nursing staff and patient. Conclusion: patient tolerated procedure
--- NOTE | 2025-01-15 10:36 | PC.NURSE ---
COMMERCIAL OR INSTITUTIONAL CLEANER and two surgery nurses are at bedside for spinal tap
[2025-01-15 11:07] LABS: Glucometer 237 mg/dL (74-106)
[2025-01-15 11:40] LABS: A. calcoaceticus-baumannii Cpx NOT DETECTED (NOT DETECTE); Bacteroides fragilis NOT DETECTED (NOT DETECTE); Candida albicans NOT DETECTED (NOT DETECTE); Candida auris NOT DETECTED (NOT DETECTE); Candida glabrata NOT DETECTED (NOT DETECTE); Candida krusei NOT DETECTED (NOT DETECTE); Candida parapsilosis NOT DETECTED (NOT DETECTE); Candida tropicalis NOT DETECTED (NOT DETECTE); Cryptococcus neoformans/gattii NOT DETECTED (NOT DETECTE); Enterobacter cloacae complex NOT DETECTED (NOT DETECTE); Enterobacterales NOT DETECTED (NOT DETECTE); Enterococcus faecalis NOT DETECTED (NOT DETECTE); Enterococcus faecium NOT DETECTED (NOT DETECTE); Haemophilus influenzae NOT DETECTED (NOT DETECTE); Klebsiella aerogenes NOT DETECTED (NOT DETECTE); Klebsiella pneumoniae group NOT DETECTED (NOT DETECTE); Listeria monocytogenes NOT DETECTED (NOT DETECTE); Neisseria meningitidis NOT DETECTED (NOT DETECTE); Proteus spp. NOT DETECTED (NOT DETECTE); Pseudomonas aeruginosa NOT DETECTED (NOT DETECTE); Salmonella spp. NOT DETECTED (NOT DETECTE); Serratia marcescens NOT DETECTED (NOT DETECTE); Staphylococcus epidermidis NOT DETECTED (NOT DETECTE); Staphylococcus lugdunensis NOT DETECTED (NOT DETECTE); Stenotrophomonas maltophilia NOT DETECTED (NOT DETECTE); Streptococcus agalactiae NOT DETECTED (NOT DETECTE); Streptococcus pneumoniae NOT DETECTED (NOT DETECTE); Streptococcus pyogenes NOT DETECTED (NOT DETECTE); Streptococcus spp. NOT DETECTED (NOT DETECTE)
[2025-01-15] MEDS: IMIPENEM/CILASTATIN SODIUM 500 MG in 0.9 % SODIUM CHLORIDE 100 ML 100 MG IV ×2 (11:43→22:53)
[2025-01-15 11:46] LABS: Glucose CSF 193 mg/dL (40-70); Total Protein CSF 100 mg/dL (15-45)
[2025-01-15 12:19] LABS: CSF Tube # 1
[2025-01-15 12:20] LABS: CSF Clarity CLEAR (CLEAR); CSF Color COLORLESS (COLORLESS); CSF Total Volume 6 mL; Red Blood Cell CSF 50 cubic mm (0-0); Red Blood Cell CSF Side 1 44; Red Blood Cell CSF Side 2 47; White Blood Cell CSF 1 cubic mm (0-5); White Blood Cell CSF Side 1 1; White Blood Cell CSF Side 2 2
[2025-01-15 12:40] LABS: Source Blood
[2025-01-15 12:41] LABS: Staphylococcus spp. DETECTED (NOT DETECTE); mecA/C and MREJ (MRSA) DETECTED (NOT DETECTE)
--- NOTE | 2025-01-15 13:15 | PC.NURSE ---
Dr. Martinez notified of two positve blood cultures for staph aureus/mrsa
[2025-01-15] MEDS: 0.9 % SODIUM CHLORIDE 1,000 ML 125 ML IV (14:12)
[2025-01-15 15:35] LABS: Erythrocyte Sedimentation Rate 10 mm/hr (<=20)
[2025-01-15 16:02] LABS: Glucometer 134 mg/dL (74-106)
--- NOTE | 2025-01-15 17:58 | PC.NURSE ---
helga abreu called and updated
--- NOTE | 2025-01-15 18:49 | PC.NURSE ---
dr. medina notified of minimal urine output. he will be putting in an order. pt urinated 175, bladder scan complete and measured 250ml
[2025-01-15] MEDS: ACETAMINOPHEN 500 MG TABLET 1000 MG PO (18:52)
[2025-01-15 19:08] LABS: Glucometer 192 mg/dL (74-106)
[2025-01-15] MEDS: 0.9 % SODIUM CHLORIDE 1,000 ML 1000 ML IV (19:40)
[2025-01-15 21:16] LABS: Glucometer 177 mg/dL (74-106)
[2025-01-15] MEDS: INSULIN GLARGINE 300 UNIT/3 ML INSULN.PEN 24 UNIT SQ (21:17)
[2025-01-15 23:45] LABS: Glucometer 192 mg/dL (74-106)
[2025-01-15] MEDS: 0.9 % SODIUM CHLORIDE 1,000 ML 150 ML IV (23:49)
[2025-01-16] VITALS (26 sets, daily range): BP systolic 100–130; BP diastolic 56–70; PULSE 57–84; TEMP 36.4–37.2; O2SAT 88–97
--- NOTE | 2025-01-16 02:14 | PC.NURSE ---
Offered patient urine d/t no void, patient attempted. Bladder scanned 327. Hospitalist notified, awaiting orders.
[2025-01-16] MEDS: INSULIN ASPART 300 UNIT/3 ML PEN SUBQ ×2 (03:30→12:20)
[2025-01-16 03:31] LABS: Glucometer 144 mg/dL (74-106)
[2025-01-16 05:50] LABS: Basophils Percent Auto 0.2 % (0.2-2.0); Eosinophils Absolute Auto 0.1 10^3/uL (0.0-0.7); Eosinophils Percent Auto 0.4 % (0.9-7.0); Hemoglobin 7.2 g/dL (14.0-18.0); Immature Granulocytes Abs Auto 0.18 10^3/uL (0.00-0.03); Immature Granulocytes Pct Auto 0.7 % (0.0-0.5); Lymphocytes Absolute Auto 0.7 10^3/uL (1.2-3.8); Lymphocytes Percent Auto 2.7 % (20.5-60.0); Mean Corpuscular HGB Conc 34.6 g/dL (29.9-35.2); Mean Corpuscular Hemoglobin 29.1 pg (25.9-34.0); Mean Corpuscular Volume 84.2 fL (80.0-94.0); Mean Platelet Volume 10.6 fL (9.5-13.5); Monocytes Absolute Auto 0.9 10^3/uL (0.3-0.8); Monocytes Percent Auto 3.6 % (1.7-12.0); Neutrophils Absolute Auto 22.9 10^3/uL (1.4-6.5); Neutrophils Percent Auto 92.4 % (43.0-75.0); Platelet Count 202 10^3/uL (150-450); Red Blood Count 2.47 10^6/uL (4.70-6.10); Red Cell Distribution Width 13.2 % (11.0-15.0); White Blood Count 24.7 10^3/uL (4.0-11.0)
[2025-01-16 06:08] LABS: Alanine Aminotransferase 24 U/L (16-63); Albumin Globulin Ratio 0.5; Albumin Level 1.8 g/dL (3.4-5.0); Alkaline Phosphatase 119 U/L (46-116); Anion Gap 15.9; Aspartate Amino Transferase 54 U/L (15-37); BUN Creatinine Ratio 22.5; Bilirubin Total 0.4 mg/dL (0.2-1.0); Carbon Dioxide 20.3 mmol/L (21.0-32.0); Chloride 101 mmol/L (98-107); Estimated GFR (African America 16 (>=60 mL/min/1.73m^2); Estimated GFR (Non-African Ame 13 (>=60 mL/min/1.73m^2); Globulin 3.7 g/dL; Glucose 103 mg/dL (74-106); Potassium 5.2 mmol/L (3.5-5.1); Sodium 132 mmol/L (136-145); Total Protein 5.5 g/dL (6.4-8.2)
[2025-01-16 06:14] LABS: Hematocrit 20.8 % (42.0-54.0)
[2025-01-16] MEDS: 0.9 % SODIUM CHLORIDE 1,000 ML 150 ML IV ×2 (06:59→20:15)
[2025-01-16 07:47] LABS: Magnesium 2.5 mg/dL (1.8-2.4)
--- NOTE | 2025-01-16 08:25 | P.PN_ITS ---
Progress Note: Subjective Subjective Interval history: Patient that he does feel better than yesterday is not having shaking chills anymore Exam Constitutional Vital Signs, click to edit/add: Last Vital Signs Temp 99 F 01/16/25 07:00 Pulse 71 01/16/25 07:57 Resp 16 01/16/25 07:00 BP 130/70 01/16/25 07:00 Pulse Ox 88 L 01/16/25 07:00 O2 Del Method Room Air 01/16/25 07:00 O2 Flow Rate 2 01/16/25 03:30 Documenting provider has reviewed patient's vital signs: yes Common normals: no apparent distress (Mentally he seems back to his baseline) Chest Common normals: inspection of chest normal Respiratory Common normals: normal respiratory effort and no retractions Cardio Common normals: regular rate, regular rhythm, S1 normal heart sound and S2 normal heart sound GI Common normals: Normal to inspection, nondistended, normoactive bowel sounds present, soft to palpation and no masses Extremity Common normals: abnormal to inspection (Multiple wounds bilateral heels with surrounding erythema) Progress Note: Objective Labs Labs: Short CBC 01/16/25 Range/Units 05:42 WBC 24.7 H (4.0-11.0) 10^3/uL Hgb 7.2 L (14.0-18.0) g/dL Hct 20.8 L* (42.0-54.0) % Plt Count 202 (150-450) 10^3/uL BMP 01/16/25 05:42 Sodium 132 L Potassium 5.2 H Chloride 101 Carbon Dioxide 20.3 L BUN 109.0 H* Creatinine 4.84 H Glucose 103 Calcium 8.0 L Liver Function 01/16/25 Range/Units 05:42 Total Bilirubin 0.4 (0.2-1.0) mg/dL AST 54 H (15-37) U/L ALT 24 (16-63) U/L Alkaline Phosphatase 119 H (46-116) U/L Albumin 1.8 L (3.4-5.0) g/dL Progress Note: A&P Assessment and Plan (1) Hyperglycemia due to diabetes mellitus: (2) Altered mental status: (3) Diabetic foot infection: (4) Sepsis: (5) Severe sepsis: (6) Immune deficiency disorder, disease or syndrome: Plan Patient with fever, respiratory distress, leukocytosis, lactic acidosis, acute renal failure (baseline creatinine of 1.68 for his wellness exam, admission c reatinine of 4.40 which is 261.9% above baseline with decreased urine output resulting acute kidney injury stage II) hyperkalemia, hyponatremia, elevated liver function tests consistent with severe sepsis possibly related to foot ulcers concerning for meningitis with neck pain Altered mental status with severe sepsis with due to MRSA, blood cultures positive x 2-possible from his foot, concerning for meningitis, spinal tap from yesterday show elevated glucose but that may be related to his peripheral glucose but also elevated protein which may be consistent with early meningitis, maintain current antibiotic dosing for meningitis except altering vancomycin to linezolid Acute kidney injury stage II- deteriorated today, possibly her to vancomycin, maintain hydration will repeat fluid bolus and changing vancomycin Immune deficiency disorder - this is related to his poorly controlled diabetes mellitus and is complicating the above severe sepsis-sugars are improved today Hyponatremia secondary to the above-monitor daily improved so far-improved but n ot to baseline Wrdbfvmzlggp-[id number]-isk not to baseline Poorly controlled diabetes mellitus-patient not using his home medications, will restart there and adjust sliding scale as needed Liver function test likely related to the sepsis, severe, as outlined above- monitor daily, check PT PTT Hypermagnesemia-check levels Chronic kidney disease stage III-deteriorated as outlined above Hypertension-continue with home medications Diabetic foot ulcer leading to the possible sepsis-consult to podiatry, antibiotics for meningitis would cover Admission status: Patient with severe sepsis possibly meningitis with significant leukocytosis, lactic acidosis and altered mental status, medically necessary treatment will span 2 midnights. Inpatient status Urinary Catheter Management Urinary Catheter Management Pure Wick: Cath placed during this visit: no
[2025-01-16] MEDS: CLONIDINE HCL 0.1 MG TABLET PO ×2 (08:37→22:34)
[2025-01-16] MEDS: MAGNESIUM OXIDE 400 MG TABLET PO ×2 (08:37→22:34)
[2025-01-16] MEDS: CARVEDILOL 25 MG TABLET PO ×2 (08:37→22:34)
[2025-01-16] MEDS: HYDRALAZINE HCL 50 MG TABLET PO (08:37)
[2025-01-16] MEDS: ASPIRIN 81 MG TAB.CHEW PO (08:37)
[2025-01-16] MEDS: ATORVASTATIN CALCIUM 40 MG TABLET PO (08:38)
[2025-01-16] MEDS: PANTOPRAZOLE SODIUM 40 MG VIAL IV (08:38)
[2025-01-16] MEDS: ENOXAPARIN SODIUM 40 MG/0.4 ML SYRINGE SUBQ (08:38)
[2025-01-16] MEDS: 0.9 % SODIUM CHLORIDE 1,000 ML 500 ML IV (08:39)
[2025-01-16] MEDS: AMPICILLIN SODIUM 2,000 MG in 0.9 % SODIUM CHLORIDE 100 ML 200 MG IV ×2 (08:45→16:56)
[2025-01-16] MEDS: LINEZOLID IN DEXTROSE 5% 600 MG/300 ML PIGGYBACK 300 MG IV ×2 (09:50→23:16)
--- NOTE | 2025-01-16 10:09 | P.CN_ITS ---
Consult Note: [facility] Data of Consult Consult date: 01/16/25 Requesting Physician: Vincent Martinez MD Primary Care Provider: Vincent Martinez MD Consult Narrative Reason for consult: bilateral diabetic foot infection, sepsis Narrative: Is a 49-year-old male with type 2 diabetes and bilateral plantar foot ulcers. Patient is a poor historian and relates that he has had the ulcers for maybe a week. He denies trauma. He denies using space heater or suffering from burn. When asked if he is seeing a cash sales audit clerk or wound center previously he replied t hat he was not sure however after reviewing my office charts he was seen in our wound center roughly 2 years ago for a traumatic leg wound. He relates that he feels somewhat better since being admitted. Currently, he denies pain. He cannot recall seeing a vascular surgeon in past. He denies symtpoms of claudication and rest pain. cc:: CC: Vincent Martinez MD Review of Systems ROS Constitutional Reports: fever (at admission - afebrile since), chills and fatigue Cardiovascular Reports: swelling of feet/ankles Gastrointestinal Reports: nausea PFSH PFSH Medical History (Updated 01/16/25 @ 15:20 by Akhil Navas DPM) Hypoalbuminemia ?E88.09 - Other disorders of plasma-protein metabolism, not elsewhere classified (ICD-10) Hypertension ?I10 - Essential (primary) hypertension (ICD-10) Acute hyperkalemia ?E87.5 - Hyperkalemia (ICD-10) Acute kidney injury ?N17.9 - Acute kidney failure, unspecified (ICD-10) Anasarca ?R60.1 - Generalized edema (ICD-10) Type 2 diabetes mellitus with hyperglycemia ?E11.65 - Type 2 diabetes mellitus with hyperglycemia (ICD-10) Dyslipidemia ?E78.5 - Hyperlipidemia, unspecified (ICD-10) Benign essential hypertension ?I10 - Essential (primary) hypertension (ICD-10) Uncontrolled hypertension ?I10 - Essential (primary) hypertension (ICD-10) Infection of muscle of back ?M60.08 - Infective myositis, other site (ICD-10) Diabetes ?E11.9 - Type 2 diabetes mellitus without complications (ICD-10) Family History (Updated 11/05/24 @ 00:32 by Trinity Moore) Other Family history of diabetes mellitus Family history of hypertension Family history of stroke Social History (Updated 01/15/25 @ 05:08 by Alison Og RN) Within the past year, how often did you have a drink containing alcohol: monthly or less Within the past year, how many standard drinks containing alcohol did you have on a typical day: 1 or 2 Within the past year, how often did you have six or more drinks on one occasion: never Total score: 0 Score interpretation: A score less than 4 is consistent with normal alcohol consumption. 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 Known occupational exposures/hazards: No Highest level of school completed/degree received: high school graduate Are you now , , , , never or living with a partner: In a typical week, how many times do you talk on the telephone with family, friends, or neighbors: twice per week How often do you get together with friends or relatives: once per week How often do you attend synagogue or jainism services: never Do you belong to any clubs or organizations such as synagogue groups unions, [employer] or athletic groups, or school groups: no Total score: 1 Score interpretation: A score of less than or equal to 1 indicates the most socially isolated. Little interest or pleasure in doing things: not at all Feeling down, depressed, or hopeless: not at all Feel stressed/tense/nervous/anxious/difficulty sleeping: to some extent Life stressors: unknown source of stress Due to disability, difficulty making decisions: No Do you think of yourself as: straight/heterosexual Gender Identity: male Meds Home Medications and Allergies Home Medications ?Medication ?Instructions ?Recorded ?Confirmed ?Type blood-glucose meter,continuous 10/15/23 01/15/25 History (Dexcom G6 Supervisor [employer]) pen needle, diabetic 31 gauge x 10/15/23 01/15/25 History 5/16 (Easy Comfort Pen [place]) atorvastatin 40 mg tablet 40 mg PO DAILY 11/04/24 01/15/25 History carvedilol 25 mg tablet 25 mg PO BID 11/04/24 01/15/25 History insulin glargine 100 unit/mL (3 24 unit subcut QPM 11/04/24 01/15/25 History mL) subcutaneous pen (Lantus Solostar U-100 Insulin) insulin lispro 100 unit/mL 1 sliding scale dose subcut TID 11/04/24 01/15/25 History subcutaneous pen (Humalog KwikPen (U-100) Insulin) levetiracetam 500 mg tablet 500 mg PO BID 11/04/24 01/15/25 History clonidine HCl 0.1 mg tablet 0.1 mg PO BID #60 tabs 11/07/24 01/15/25 Rx magnesium oxide 400 mg (241.3 mg 400 mg PO BID #60 tabs 11/07/24 01/15/25 Rx magnesium) tablet amlodipine 10 mg tablet 10 mg PO DAILY 01/15/25 01/15/25 History aspirin 81 mg tablet,delayed 81 mg PO DAILY 01/15/25 01/15/25 History release bumetanide 1 mg tablet 1 - 2 mg PO DAILY 01/15/25 01/15/25 History hydralazine 50 mg tablet 50 mg PO BID 01/15/25 01/15/25 History lisinopril 20 mg tablet 20 mg PO DAILY 01/15/25 01/15/25 History Allergies Allergy/AdvReac Type Severity Reaction Status Date / Time levetiracetam (From [facility]) AdvReac Mild Drowsy Verified 01/14/25 23:32 Exam Narrative Exam Narrative: Skin: Bilateral eschars on plantar heels with desquamating skin surrounding. Erythema from the heel to the level of the ankle. Localized swelling. No active drainage. Vascular: Pedal pulses are faintly palpable. Scant digital hair growth. No calf pain on squeeze. Neuro: Absent protective and vibratory sensation MSK: No pain on palpation. No obvious deformity. Patient able to fire all muscle groups without pain Xray: X-rays obtained upon admission of bilateral feet show no obvious cortical changes or evidence of fracture/osteomyelitis. No soft tissue emphysema Constitutional Vital Signs, click to edit/add: Last Vital Signs Temp 99 F 01/16/25 07:00 Pulse 65 01/16/25 09:59 Resp 16 01/16/25 07:00 BP 130/70 01/16/25 07:00 Pulse Ox 88 L 01/16/25 07:00 O2 Del Method Room Air 01/16/25 07:00 O2 Flow Rate 2 01/16/25 03:30 Results Labs Labs: Short CBC 01/16/25 Range/Units 05:42 WBC 24.7 H (4.0-11.0) 10^3/uL Hgb 7.2 L (14.0-18.0) g/dL Hct 20.8 L* (42.0-54.0) % Plt Count 202 (150-450) 10^3/uL BMP 01/16/25 05:42 Sodium 132 L Potassium 5.2 H Chloride 101 Carbon Dioxide 20.3 L BUN 109.0 H* Creatinine 4.84 H Glucose 103 Calcium 8.0 L Liver Function 01/16/25 Range/Units 05:42 Total Bilirubin 0.4 (0.2-1.0) mg/dL AST 54 H (15-37) U/L ALT 24 (16-63) U/L Alkaline Phosphatase 119 H (46-116) U/L Albumin 1.8 L (3.4-5.0) g/dL ABG ABG results: 01/15/25 00:20 ABG pH 7.399 ABG pCO2 35.2 ABG pO2 71.4 L ABG HCO3 21.7 L ABG O2 Saturation 94.5 ABG Base Excess -3.1 L Assessment and Plan Assessment and Plan (1) Hyperglycemia due to diabetes mellitus: (2) Altered mental status: (3) Diabetic foot infection: (4) Sepsis: (5) Severe sepsis: (6) Immune deficiency disorder, disease or syndrome: (7) Foot abscess, left: (8) Foot abscess, right: (9) Ulcer of left foot with muscle involvement without evidence of necrosis: (10) Ulcer of right foot with muscle involvement without evidence of necrosis: Plan Patient seen at bedside. Patient is seemingly a poor historian and I am unsure if this is his normal affect or it is secondary to altered mental status/sepsis. Fortunately he is hemodynamically stable but given the severity of his infection I recommended surgical intervention for bilateral feet and I reviewed the risks and benefits with him. I answered all of his questions. I recommended rest and limit weightbearing as much as possible. N.p.o. after midnight Dr. Martinez notified and patient may require transfusion given Hb 7.2/Hct 20.8 - surgery may be delayed if not improved tomorrow
[2025-01-16] MEDS: ACETAMINOPHEN 500 MG TABLET 1000 MG PO ×2 (10:28→23:06)
[2025-01-16] MEDS: IMIPENEM/CILASTATIN SODIUM 500 MG in 0.9 % SODIUM CHLORIDE 100 ML 100 MG IV ×2 (11:07→23:17)
[2025-01-16 11:50] LABS: Glucometer 151 mg/dL (74-106)
--- NOTE | 2025-01-16 11:59 | PC.NURSE ---
dr emery at bedside to see patient. Dressings were removed by him and adaptic, abd and kerlix were reapplied by this nurse. Patient tolerated well. Patient was assisted back to bed.
--- NOTE | 2025-01-16 13:08 | SWNOTE1 ---
SW reviewed therapy notes and SNF recommended. SW to speak with pt.
--- NOTE | 2025-01-16 16:16 | SWNOTE1 ---
SW met with pt to discuss dc needs. SW let pt know that therapy is recommending SNF. SW and pt spoke about SNF and the benefits. Pt voiced he has declined since beginning of year and does think he needs rehab. Pt voiced it makes him feel like an old person. SW expressed that many people that are in 50's 60's decline due to health issues and just need a short term rehab stay and some strengthening. Pt in agreement. SW did review facilities with pt. Pt lives in [place] and feels [place] or [place] would be closest. SW did go over facilities in [place] that do take [facility]. Pt does not want [facility]. SW has to call [facility] to check, but [facility] does not take [facility]. Pt in agreement with [facility]I looking in to [facility]. Pt voiced his daughter works here at [facility], but he does not want to go where she works. SW let him know that [facility] does not take [facility]. KASI called [facility] and spoke to Xochitl. She stated SW will have to fax over to the central intake and can call, but they will have to review it. SW called and left message for central intake. Referral sent to [facility] central intake . Referral included face sheet, ED note, H&P, provider notes, case management report, podiatry consult , nursing notes, diagnostic imaging, med list, and PT/OT notes.
[2025-01-16 17:01] LABS: Glucometer 128 mg/dL (74-106)
--- NOTE | 2025-01-16 19:12 | PC.NURSE ---
dr medina notified of urine output and he placed orders
[2025-01-16 22:34] LABS: Glucometer 159 mg/dL (74-106)
[2025-01-16] MEDS: INSULIN GLARGINE 300 UNIT/3 ML INSULN.PEN 24 UNIT SQ (22:35)
[2025-01-17] VITALS (17 sets, daily range): BP systolic 121–143; BP diastolic 70–80; PULSE 61–70; TEMP 36.5–37.1; O2SAT 86–93
[2025-01-17] MEDS: AMPICILLIN SODIUM 2,000 MG in 0.9 % SODIUM CHLORIDE 100 ML 200 MG IV ×2 (00:29→09:50)
[2025-01-17] MEDS: 0.9 % SODIUM CHLORIDE 1,000 ML 1000 ML IV (00:37)
[2025-01-17] MEDS: 0.9 % SODIUM CHLORIDE 250 ML 10 ML IV (01:11)
[2025-01-17] MEDS: 0.9 % SODIUM CHLORIDE 1,000 ML 125 ML IV ×2 (01:36→11:06)
[2025-01-17 06:24] LABS: Basophils Percent Auto 0.2 % (0.2-2.0); Eosinophils Absolute Auto 0.2 10^3/uL (0.0-0.7); Eosinophils Percent Auto 0.8 % (0.9-7.0); Hematocrit 25.8 % (42.0-54.0); Hemoglobin 8.9 g/dL (14.0-18.0); Immature Granulocytes Abs Auto 0.33 10^3/uL (0.00-0.03); Immature Granulocytes Pct Auto 1.4 % (0.0-0.5); Lymphocytes Absolute Auto 0.6 10^3/uL (1.2-3.8); Lymphocytes Percent Auto 2.3 % (20.5-60.0); Mean Corpuscular HGB Conc 34.5 g/dL (29.9-35.2); Mean Corpuscular Hemoglobin 28.9 pg (25.9-34.0); Mean Corpuscular Volume 83.8 fL (80.0-94.0); Mean Platelet Volume 10.6 fL (9.5-13.5); Monocytes Absolute Auto 0.9 10^3/uL (0.3-0.8); Monocytes Percent Auto 3.8 % (1.7-12.0); Neutrophils Percent Auto 91.5 % (43.0-75.0); Platelet Count 215 10^3/uL (150-450); Red Blood Count 3.08 10^6/uL (4.70-6.10); Red Cell Distribution Width 13.9 % (11.0-15.0)
[2025-01-17 06:45] LABS: Magnesium 2.5 mg/dL (1.8-2.4)
[2025-01-17 06:51] LABS: C Reactive Protein 18.57 mg/dL (<=0.50)
[2025-01-17 06:52] LABS: Alanine Aminotransferase 25 U/L (16-63); Albumin Globulin Ratio 0.4; Albumin Level 1.7 g/dL (3.4-5.0); Alkaline Phosphatase 142 U/L (46-116); Anion Gap 20.1; Aspartate Amino Transferase 56 U/L (15-37); BUN Creatinine Ratio 20.2; Bilirubin Total 0.8 mg/dL (0.2-1.0); Calcium 7.7 mg/dL (8.5-10.1); Carbon Dioxide 17.7 mmol/L (21.0-32.0); Chloride 98 mmol/L (98-107); Estimated GFR (African America 14 (>=60 mL/min/1.73m^2); Estimated GFR (Non-African Ame 12 (>=60 mL/min/1.73m^2); Globulin 4.1 g/dL; Glucose 142 mg/dL (74-106); Potassium 5.8 mmol/L (3.5-5.1); Sodium 130 mmol/L (136-145); Total Protein 5.8 g/dL (6.4-8.2)
--- NOTE | 2025-01-17 06:56 | PC.NURSE ---
Dr Martinez notified of critical labs
[2025-01-17 07:47] LABS: Glucometer 129 mg/dL (74-106)
--- NOTE | 2025-01-17 08:31 | P.DS_ITS ---
DS: Providers Provider Date of admission: 01/15/25 03:56 Primary care physician: Vincent Martinez MD Consults: 01/15/25 07:00 Consult to Pharmacy Routine Consulting Provider: Reason for consultation: Please [place] me when Med Rec is Updated Has provider been notified: No Occupational Therapy Eval and Treat Routine Reason for consultation: Only if needed for Rehab Has provider been notified: No Physical Therapy Eval and Treat Routine Reason for consultation: Eval and Treat Has provider been notified: No 01/15/25 07:05 Consult to Podiatry Routine Consulting Provider: Akhil Navas Reason for consultation: Foot infection Has provider been notified: No 01/15/25 08:17 Consult to Anesthesiology Routine Consulting Provider: Charles Burton II Reason for consultation: Talk to ALETA Pittmanch (Missed his last name) - he said he could do it Has provider been notified: No 01/15/25 09:00 Occupational Therapy Eval and Treat Routine Reason for consultation: weakness Has provider been notified: No Physical Therapy Eval and Treat Routine Reason for consultation: Weakness Has provider been notified: Yes 01/16/25 07:31 Consult to Pharmacy Routine Consulting Provider: Reason for consultation: d/c vanco Has provider been notified: No DS: Diagnosis Discharge Diagnosis (1) Hyperglycemia due to diabetes mellitus: (2) Altered mental status: (3) Diabetic foot infection: (4) Sepsis: (5) Severe sepsis: (6) Immune deficiency disorder, disease or syndrome: Plan Patient with fever, respiratory distress, leukocytosis, lactic acidosis, acute renal failure (baseline creatinine of 1.68 for his wellness exam, admission creatinine of 4.40 which is 261.9% above baseline with decreased urine output resulting acute kidney injury stage II) hyperkalemia, hyponatremia, elevated liver function tests consistent with severe sepsis possibly related to foot ulcers concerning for meningitis with neck pain Altered mental status with severe sepsis with due to MRSA, blood cultures positive x 2-possible from his foot, concerning for meningitis, spinal tap from show elevated glucose but that may be related to his peripheral glucose but also elevated protein which may be consistent with early meningitis, maintain current antibiotic dosing for meningitis except altering vancomycin to linezolid Acute renal failure with creatinine over 300% over baseline due to Acute tubular necrosis form sepsis Immune deficiency disorder - this is related to his poorly controlled diabetes mellitus and is complicating the above severe sepsis-sugars are improved today Hyponatremia secondary to the above-improving Imiiwkbrxctu-jikdudxv-gjiphoionjet Poorly controlled diabetes mellitus-patient not using his home medications, will restart there and adjust sliding scale as needed Liver function test likely related to the sepsis, severe, as outlined above- monitor daily, check PT PTT Hypermagnesemia-check levels - stable Chronic kidney disease stage III-deteriorated as outlined above Hypertension-continue with home medications Diabetic foot ulcer leading to the possible sepsis-consult to podiatry, antibiotics for meningitis would cover Admission status: Patient with severe sepsis possibly meningitis with significant leukocytosis, lactic acidosis and altered mental status, medically necessary treatment will span 2 midnights. Inpatient status DS: Summary Hospital Course Hospital Course: Patient was seen and evaluated in the emergency room with altered mental status, not using his insulin over the last couple of weeks, developed foot ulcers, was due to see treatment the day after he presented to the emergency room, in ER found to have evidence for severe sepsis, given IV fluids in ER started on vancomycin and Zosyn for the diabetic foot ulcers, following day blood culture came positive for MRSA, the following morning when I saw him I thought he had some nuchal rigidity, altered mental status was somewhat clear but not resolved, obtain spinal tap, opening pressure slightly elevated at 31, protein elevated white blood cell count normal, cultures are still pending, initial creatinine of 4.4, secondary to 4.1 repeat was 4.8 yesterday, after getting 2 units of blood a nd over 3 L of fluid yesterday his creatinine is higher today at 5.3, CO2 is lower, potassium is higher, case discussed with nephrology, starting bicarb this morning, and transferring patient for potential dialysis secondary to acute tubular necrosis due to sepsis from MRSA. Patient to be transferred to [facility], as long as no obstructive uropathy found on CT scan. I will follow-up with [facility] Time Spent with Patient Time attestation: Total time spent providing and/or coordinating discharge services: Exam Constitutional Vital Signs, click to edit/add: Last Vital Signs Temp 97.7 F 01/17/25 03:38 Pulse 69 01/17/25 08:00 Resp 16 01/17/25 07:49 BP 143/80 H 01/17/25 07:49 Pulse Ox 86 L 01/17/25 07:49 O2 Del Method Room Air 01/17/25 07:49 O2 Flow Rate 1 01/16/25 22:56 DS: Data Data Completed and Pending Labs on day of discharge: Labs from last 24 hours 01/17/25 01/17/25 01/16/25 07:45 06:00 22:33 WBC 24.0 H RBC 3.08 L Hgb 8.9 L Hct 25.8 L MCV 83.8 MCH 28.9 MCHC 34.5 RDW 13.9 Plt Count 215 MPV 10.6 Neut % (Auto) 91.5 H Lymph % (Auto) 2.3 L Faulkner % (Auto) 3.8 Eos % (Auto) 0.8 L Baso % (Auto) 0.2 Neut # (Auto) 22.0 H Lymph # (Auto) 0.6 L Faulkner # (Auto) 0.9 H Eos # (Auto) 0.2 Baso # (Auto) 0.0 Abs Immat Gran (auto) 0.33 H Imm/Tot Granulo (auto) 1.4 H Sodium 130 L Potassium 5.8 H Chloride 98 Carbon Dioxide 17.7 L Anion Gap 20.1 BUN 107.0 H* Creatinine 5.29 H* Est GFR ( Amer) 14 L Est GFR (Non-Af Amer) 12 L BUN/Creatinine Ratio 20.2 Glucose 142 H Calcium 7.7 L Magnesium 2.5 H Total Bilirubin 0.8 AST 56 H ALT 25 Alkaline Phosphatase 142 H C-Reactive Protein 18.57 H Total Protein 5.8 L Albumin 1.7 L Globulin 4.1 Albumin/Globulin Ratio 0.4 POC Glucose 129 H 159 H Blood Type Antibody Screen Crossmatch 01/16/25 01/16/25 01/15/25 16:49 11:45 02:17 WBC RBC Hgb Hct MCV MCH MCHC RDW Plt Count MPV Neut % (Auto) Lymph % (Auto) Faulkner % (Auto) Eos % (Auto) Baso % (Auto) Neut # (Auto) Lymph # (Auto) Faulkner # (Auto) Eos # (Auto) Baso # (Auto) Abs Immat Gran (auto) Imm/Tot Granulo (auto) Sodium Potassium Chloride Carbon Dioxide Anion Gap BUN Creatinine Est GFR ( Amer) Est GFR (Non-Af Amer) BUN/Creatinine Ratio Glucose Calcium Magnesium Total Bilirubin AST ALT Alkaline Phosphatase C-Reactive Protein Total Protein Albumin Globulin Albumin/Globulin Ratio POC Glucose 128 H 151 H Blood Type O Positive Antibody Screen Negative Crossmatch See Detail Preliminary micro results at discharge 01/15/25 00:06 Bacterial ID and Susceptibility - Preliminary Blood - Left Hand Anaerobe Identification - Preliminary 01/15/25 00:06 Bacterial ID and Susceptibility - Preliminary Blood - Left Hand 01/14/25 23:20 Bacterial ID and Susceptibility - Preliminary Blood - Right Antecubital Anaerobe Identification - Preliminary 01/14/25 23:20 Bacterial ID and Susceptibility - Preliminary Blood - Right Antecubital Discharge Plan Discharge Disposition: [facility] Condition: Fair
[2025-01-17] MEDS: SODIUM CHLORIDE 0.9% IV (09:50)
[2025-01-17] MEDS: SODIUM BICARBONATE IV (09:50)
[2025-01-17] MEDS: CARVEDILOL 25 MG TABLET PO (09:51)
[2025-01-17] MEDS: CLONIDINE HCL 0.1 MG TABLET PO (09:51)
[2025-01-17] MEDS: MAGNESIUM OXIDE 400 MG TABLET PO (09:51)
[2025-01-17] MEDS: ASPIRIN 81 MG TAB.CHEW PO (09:51)
[2025-01-17] MEDS: ATORVASTATIN CALCIUM 40 MG TABLET PO (09:51)
[2025-01-17] MEDS: HYDRALAZINE HCL 50 MG TABLET PO (09:52)
[2025-01-17] MEDS: PANTOPRAZOLE SODIUM 40 MG VIAL IV (09:52)
[2025-01-17] MEDS: ENOXAPARIN SODIUM 40 MG/0.4 ML SYRINGE SUBQ (09:52)
--- NOTE | 2025-01-17 10:03 | SWNOTE1 ---
Pt to be transferred to higher level of care. SW to call [facility] and update them.
[2025-01-17] MEDS: LINEZOLID IN DEXTROSE 5% 600 MG/300 ML PIGGYBACK 300 MG IV (11:05)
[2025-01-17] MEDS: HYDROMORPHONE HCL 0.5 MG/0.5 ML SYRINGE IV (11:06)
[2025-01-17 11:26] LABS: Glucometer 103 mg/dL (74-106)
--- NOTE | 2025-01-17 12:20 | SWNOTE1 ---
KASI spoke to Fide at [facility] and updated that pt will be trasnferred to [facility] and recommended to follow as he may need SNF at discharge from there.
[2025-01-17] MEDS: IMIPENEM/CILASTATIN SODIUM 500 MG in 0.9 % SODIUM CHLORIDE 100 ML 100 MG IV (12:22)
--- NOTE | 2025-01-17 13:47 | PC.NURSE ---
[place] spoke with son Rudi. Updated him on room number at [facility] [place] and time for transport.
--- NOTE | 2025-01-17 14:34 | PC.NURSE ---
Report called and given to [place] at [facility] [place]
== END 2025-01-17 14:50 | disposition short-term general hospital (02) | DRG 720 ==
LOC: ER 01-15 03:42 → MS 01-15 04:03
PROVIDERS: Registered Nurse; Admitting Provider Family Medicine; Emergency Provider Emergency Medicine; PCP Family Medicine; Visit Provider Family Medicine
DX: A41.02 Sepsis due to Methicillin resistant Staphylococcus aureus (principal); R65.20 Severe sepsis without septic shock; E87.5 Hyperkalemia; E11.65 Type 2 diabetes mellitus with hyperglycemia; E11.22 Type 2 diabetes mellitus with diabetic chronic kidney disease; I12.9 Hypertensive chronic kidney disease with stage 1 through stage 4 chronic kidney disease, or unspecified chronic kidney disease; E78.5 Hyperlipidemia, unspecified; F17.200 Nicotine dependence, unspecified, uncomplicated; Z79.4 Long term (current) use of insulin; E88.09 Other disorders of plasma-protein metabolism, not elsewhere classified; E87.1 Hypo-osmolality and hyponatremia; R79.89 Other specified abnormal findings of blood chemistry; E11.621 Type 2 diabetes mellitus with foot ulcer; R06.03 Acute respiratory distress; D84.9 Immunodeficiency, unspecified; T50.906A Underdosing of unspecified drugs, medicaments and biological substances, initial encounter; Z91.148 Patient's other noncompliance with medication regimen for other reason; N18.30 Chronic kidney disease, stage 3 unspecified; N17.0 Acute kidney failure with tubular necrosis; M54.2 Cervicalgia; R29.1 Meningismus; L97.425 Non-pressure chronic ulcer of left heel and midfoot with muscle involvement without evidence of necrosis; L97.415 Non-pressure chronic ulcer of right heel and midfoot with muscle involvement without evidence of necrosis; L02.612 Cutaneous abscess of left foot; L02.611 Cutaneous abscess of right foot; E83.41 Hypermagnesemia; G03.9 Meningitis, unspecified; D62 Acute posthemorrhagic anemia; K92.2 Gastrointestinal hemorrhage, unspecified
CPT/HCPCS: 36415; 36430; 36600; 51798; 70450; 71045; 72125; 73620; 74176; 80053; 81001; 82009; 82805; 82945; 82948; 83605; 83735; 84157; 84484; 85007; 85025; 85027; 85610; 85652; 85730; 86140; 86850; 86900; 86901; 86923; 87040; 87070; 87086; 87150; 87186; 87804; 87811; 89050; 93005; 94667; 94668; 94761; 96361; 96365; 96366; 96368; 96375; 97161; 97165; 97530; 99285; G0328; J0290; J0743; J1171; J1650; J1817; J2020; J2405; J2543; J3370; P9016